=== PATIENT | female | born 1995 | race Caucasian/White ===

== ENCOUNTER 2023-04-05 13:56 | Outpatient (OUT) | payer OTHER, SELFPAY ==
--- NOTE | 2023-04-05 | US_ITS ---
[address] [address] Patient Name: NOE ERVIN MRN: [id number] date: 1995 Sex: F Assigned Patient Location: US Current Patient Location: US Accession/Order Number: [id number] Exam Date: 04/05/2023 13:57 Report Date: 04/05/2023 17:28 At the request of: SHON BUSTAMANTE Procedure: US OB transvaginal EXAMINATION: US OB transvaginal HISTORY: MISSED PERIOD COMPARISON: No relevant comparison available. FINDINGS: Transvaginal images Hodge intrauterine gestation Gestational sac: 3.12 cm, 8 weeks 0 days CRL: 2.0 cm, 8 weeks 4 days Yolk sac: 2.1 mm Heart rate: 1 70 bpm Cervix: 4.2 cm, closed Uterus is normal, anteverted, retroflexed The ovaries are normal. Right corpus luteal cyst Clinical age: 11 weeks 4 days Clinical ANGELA: 10/21/2023 Ultrasound age: 8 weeks 4 days Ultrasound ANGELA: 11/11/2023 US/US OB transvaginal IMPRESSION: Viable hodge intrauterine gestation measuring 8 weeks 4 days Electronically authenticated by: DILLON BAUGH Date: 04/05/2023 17:28
== END 2023-04-05 13:57 | disposition home or self-care (01) ==
LOC: US 13:56
PROVIDERS: Visit Provider Obstetrics & Gynecology
DX: Z34.91 Encounter for supervision of normal pregnancy, unspecified, first trimester (principal); Z3A.08 8 weeks gestation of pregnancy; N92.6 Irregular menstruation, unspecified
CPT/HCPCS: 76817

== ENCOUNTER 2023-04-19 16:44 | Outpatient (OUT) | payer OTHER, SELFPAY ==
[2023-04-19 17:11] LABS: Basophils Percent Auto 0.3 % (0.2-2.0); Eosinophils Absolute Auto 0.1 10^3/uL (0.0-0.7); Eosinophils Percent Auto 1.4 % (0.9-7.0); Hematocrit 34.8 % (36.0-48.0); Hemoglobin 11.7 g/dL (12.0-16.0); Immature Granulocytes Abs Auto 0.02 10^3/uL (0.00-0.03); Immature Granulocytes Pct Auto 0.3 % (0.0-0.5); Lymphocytes Absolute Auto 1.5 10^3/uL (1.2-3.8); Lymphocytes Percent Auto 21.1 % (20.5-60.0); Mean Corpuscular HGB Conc 33.6 g/dL (29.9-35.2); Mean Corpuscular Hemoglobin 29.3 pg (26.7-34.0); Mean Platelet Volume 10.4 fL (9.5-13.5); Monocytes Absolute Auto 0.4 10^3/uL (0.3-0.8); Neutrophils Absolute Auto 5.2 10^3/uL (1.4-6.5); Neutrophils Percent Auto 71.9 % (43.0-75.0); Platelet Count 235 10^3/uL (150-450); Red Cell Distribution Width 12.4 % (11.0-15.0); White Blood Count 7.2 10^3/uL (4.0-11.0)
[2023-04-19 17:19] LABS: BOX Test Sent Out Y
[2023-04-19 17:29] LABS: Estimated Average Glucose 94 mg/dL; Glycohemoglobin A1C 4.9 % (4.5-6.2)
[2023-04-21 04:07] LABS: HBsAg Screen Negative (Negative); HIV Ab/p24 Ag Screen Non Reactive (Non Reactive)
[2023-04-21 06:14] LABS: Rubella Antibodies, IgG 5.44 index (Immune >0.99)
[2023-04-21 10:08] LABS: Rapid Plasma Reagin, Quant Non Reactive (NonRea<1:1)
[2023-04-23 15:10] LABS: HCV Ab Reactive (Non Reactive)
== END 2023-04-19 16:45 | disposition home or self-care (01) ==
PROVIDERS: Visit Provider Obstetrics & Gynecology
DX: Z34.80 Encounter for supervision of other normal pregnancy, unspecified trimester (principal)
CPT/HCPCS: 36415; 83036; 84443; 85025; 86592; 86706; 86762; 86803; 86850; 86900; 86901; 87086; 87389

== ENCOUNTER 2023-06-20 19:24 | Outpatient (REF) | payer OTHER, SELFPAY ==
[2023-06-24 14:07] LABS: Age Gdln ACOG Testing Note (.); IGP, rfx Aptima HPV ASCU Note (.)
== END 2023-06-20 19:25 | disposition home or self-care (01) ==
LOC: LAB 19:24
PROVIDERS: Visit Provider Obstetrics & Gynecology
DX: Z01.419 Encounter for gynecological examination (general) (routine) without abnormal findings (principal)
CPT/HCPCS: G0145

== ENCOUNTER 2023-06-29 18:03 | Outpatient (OUT) | payer OTHER, SELFPAY ==
--- NOTE | 2023-06-29 | US_ITS ---
[address] [address] Patient Name: NOE ERVIN MRN: [facility]:[id number] date: 1995 Sex: F Assigned Patient Location: US Current Patient Location: Accession/Order Number: [id number] Exam Date: 06/29/2023 18:00 Report Date: 06/30/2023 08:54 At the request of: SHON BUSTAMANTE Procedure: US OB anatomy EXAMINATION: US OB anatomy, US OB cervical length HISTORY: ANATOMY SCAN Z 34.92 COMPARISON: No relevant comparison available. TECHNIQUE: Transabdominal sonographic examination was performed for obstetrical and evaluation. FINDINGS: Number: 1 Heart Rate: 130.4 bpm H.B. /min Amniotic Fluid Volume: Subjectively normal Placental Location: POSTERIOR with lower margin covering the internal os by 1.4 cm. Cervix Length: 5.6 cm, closed. ANATOMY: Normal Structures -cerebellum, choroid plexus, cisterna magna, lateral cerebral ventricles, orbits, midline falx, hard palate, four-chamber heart, RVOT, LVOT, stomach, kidneys, bladder, umbilical cord insertion into abdomen, three-vessel cord, cervical spine, thoracic spine, lumbar spine, sacral spine, right upper extremity, left upper extremity, right lower extremity, left lower extremity. SUBOPTIMALLY SEEN: None ABNORMALITIES: None BIOMETRY: BPD: 5.0 cm 21 weeks 1 days HC: 19.0 cm 21 weeks 2 days AC: 17.0 cm 22 weeks 0 days FL: 3.6 cm 21 weeks 2 days EFW:437.4 grams; 89% FL/AC: 21.1 FL/BPD: 71.7 HC/AC: 1.1 GESTATIONAL AGE: Age by EDC: 20 weeks 5 days ANGELA by EDC: 11/11/2023 Age by current US: 21 weeks 3 days ANGELA by current US: 11/06/2023 US/US OB anatomy IMPRESSION: 1. Single live intrauterine with growth detailed above. 2. Posterior placenta with complete previa. Follow-up recommended. Electronically authenticated by: CHRISTINE SÁNCHEZ Date: 06/30/2023 08:54
--- NOTE | 2023-06-29 | US_ITS ---
[address] [address] Patient Name: NOE ERVIN MRN: [facility]:[id number] date: 1995 Sex: F Assigned Patient Location: US Current Patient Location: Accession/Order Number: [id number] Exam Date: 06/29/2023 18:00 Report Date: 06/30/2023 08:54 At the request of: SHON BUSTAMANTE Procedure: US OB cervical length EXAMINATION: US OB anatomy, US OB cervical length HISTORY: ANATOMY SCAN Z 34.92 COMPARISON: No relevant comparison available. TECHNIQUE: Transabdominal sonographic examination was performed for obstetrical and evaluation. FINDINGS: Number: 1 Heart Rate: 130.4 bpm H.B. /min Amniotic Fluid Volume: Subjectively normal Placental Location: POSTERIOR with lower margin covering the internal os by 1.4 cm. Cervix Length: 5.6 cm, closed. ANATOMY: Normal Structures -cerebellum, choroid plexus, cisterna magna, lateral cerebral ventricles, orbits, midline falx, hard palate, four-chamber heart, RVOT, LVOT, stomach, kidneys, bladder, umbilical cord insertion into abdomen, three-vessel cord, cervical spine, thoracic spine, lumbar spine, sacral spine, right upper extremity, left upper extremity, right lower extremity, left lower extremity. SUBOPTIMALLY SEEN: None ABNORMALITIES: None BIOMETRY: BPD: 5.0 cm 21 weeks 1 days HC: 19.0 cm 21 weeks 2 days AC: 17.0 cm 22 weeks 0 days FL: 3.6 cm 21 weeks 2 days EFW:437.4 grams; 89% FL/AC: 21.1 FL/BPD: 71.7 HC/AC: 1.1 GESTATIONAL AGE: Age by EDC: 20 weeks 5 days ANGELA by EDC: 11/11/2023 Age by current US: 21 weeks 3 days ANGELA by current US: 11/06/2023 US/US OB cervical length IMPRESSION: 1. Single live intrauterine with growth detailed above. 2. Posterior placenta with complete previa. Follow-up recommended. Electronically authenticated by: CHRISTINE SÁNHCEZ Date: 06/30/2023 08:54
== END 2023-06-29 18:04 | disposition home or self-care (01) ==
LOC: US 18:04
PROVIDERS: Visit Provider Obstetrics & Gynecology
DX: Z34.92 Encounter for supervision of normal pregnancy, unspecified, second trimester (principal); Z3A.20 20 weeks gestation of pregnancy
CPT/HCPCS: 76805; 76817

== ENCOUNTER 2023-07-17 14:18 | Outpatient (OUT) | payer OTHER, SELFPAY ==
[2023-07-19 00:07] LABS: AFP Value 81.4 ng/mL (.); Gest. Age on Collection Date 23.3 weeks (.); Gestat. Age Based On Ultrasound (.); Insulin Dep Diabetes No (.); Maternal Age At EDD 29.8 yr (.); OSBR Risk 1 IN 10000 (.); Results Report (.)
== END 2023-07-17 14:19 | disposition home or self-care (01) ==
LOC: LAB 14:19
PROVIDERS: Visit Provider Obstetrics & Gynecology
DX: Z34.92 Encounter for supervision of normal pregnancy, unspecified, second trimester (principal); Z36.1 Encounter for antenatal screening for raised alphafetoprotein level
CPT/HCPCS: 36415; 82105

== ENCOUNTER 2023-08-10 10:02 | Outpatient (OUT) | payer OTHER, SELFPAY ==
[2023-08-10 11:13] LABS: Basophils Percent Auto 0.2 % (0.2-2.0); Eosinophils Absolute Auto 0.1 10^3/uL (0.0-0.7); Eosinophils Percent Auto 1.2 % (0.9-7.0); Hematocrit 31.4 % (36.0-48.0); Immature Granulocytes Abs Auto 0.08 10^3/uL (0.00-0.03); Immature Granulocytes Pct Auto 0.9 % (0.0-0.5); Lymphocytes Absolute Auto 1.3 10^3/uL (1.2-3.8); Lymphocytes Percent Auto 15.5 % (20.5-60.0); Mean Corpuscular HGB Conc 31.8 g/dL (29.9-35.2); Mean Corpuscular Hemoglobin 28.1 pg (26.7-34.0); Mean Corpuscular Volume 88.2 fL (81.0-99.0); Mean Platelet Volume 10.8 fL (9.5-13.5); Monocytes Absolute Auto 0.6 10^3/uL (0.3-0.8); Monocytes Percent Auto 6.9 % (1.7-12.0); Neutrophils Absolute Auto 6.4 10^3/uL (1.4-6.5); Neutrophils Percent Auto 75.3 % (43.0-75.0); Platelet Count 216 10^3/uL (150-450); Red Blood Count 3.56 10^6/uL (4.20-5.40); Red Cell Distribution Width 11.9 % (11.0-15.0); White Blood Count 8.5 10^3/uL (4.0-11.0)
[2023-08-10 11:37] LABS: Glucose 1 Hour 116 mg/dL
== END 2023-08-10 10:03 | disposition home or self-care (01) ==
PROVIDERS: Visit Provider Physician Assistant
DX: Z34.92 Encounter for supervision of normal pregnancy, unspecified, second trimester (principal)
CPT/HCPCS: 82950; 85025

== ENCOUNTER 2023-08-26 11:35 | Emergency (ER) | payer OTHER, SELFPAY ==
[2023-08-26 11:46] VITALS: BP 139/84; PULSE 103; RESP 20; TEMP 36.8; O2SAT 99; BMI 28.7
--- NOTE | 2023-08-26 12:00 | ED.URI1 ---
HPI - URI/Sore Throat General Chief Complaint: Upper Respiratory Infection Stated Complaint: COUGH/FEVER/NAUSEA Time Seen by Provider: 08/26/23 11:39 Source: patient Limitations: no limitations History of Present Illness HPI Narrative: 28-year-old female presents for congestion. She tested positive for Covid last night. No fever or vomiting or diarrhea. Her tested positive as well yesterday and her daughter is being seen as well today. Related Data Home Medications Medication Instructions Recorded Confirmed gabapentin 600 mg tablet 600 mg PO Q8H 08/26/23 08/26/23 ondansetron HCl 4 mg tablet 8 mg PO Q6H PRN nausea and vomiting 08/26/23 08/26/23 vitamin with calcium 1 tab PO Q24H 08/26/23 08/26/23 no.72-iron 27 mg-folic acid 1 mg tablet ( Vitamins Plus Low Iron) Allergies Allergy/AdvReac Type Severity Reaction Status Date / Time No Known Drug Allergies Allergy Verified 08/26/23 11:51 Review of Systems ROS Narrative A ten point review of systems is negative except as noted above. Exam Narrative Exam Narrative: Nurses note and vital signs reviewed and patient is not hypoxic. General: The patient appears well and in no apparent distress. Patient is resting comfortably on cart. Skin: Warm, dry, no pallor noted. There is no rash noted. Head: Normocephalic, atraumatic Eye: Normal conjunctiva, no drainage Ears, Nose, Mouth, and Throat: oral mucosa is moist. Nares patent. Cardiovascular: Regular Rate and Rhythm, not tachycardic Respiratory: Patient is in no distress, no accessory muscle use, lungs are clear to auscultation, no wheezing, rales or rhonchi Back: non-tender GI: nontender Musculoskeletal: no joint swelling Neurological: A&O, normal speech Psychiatric: Cooperative Constitutional Vital Signs, click to edit/add: Last Vital Signs Temp 98.2 F 08/26/23 11:46 Pulse 103 H 08/26/23 11:46 Resp 20 08/26/23 11:46 BP 139/84 08/26/23 11:46 Pulse Ox 99 08/26/23 11:46 O2 Del Method Room Air 08/26/23 11:46 Course Vital Signs Vital signs: Vital Signs Temperature 98.2 F 08/26/23 11:46 Pulse Rate 103 H 08/26/23 11:46 Respiratory Rate 20 08/26/23 11:46 Blood Pressure 139/84 08/26/23 11:46 Pulse Oximetry 99 08/26/23 11:46 Oxygen Delivery Method Room Air 08/26/23 11:46 Temperature 98.2 F 08/26/23 11:46 Pulse Rate 103 H 08/26/23 11:46 Respiratory Rate 20 08/26/23 11:46 Blood Pressure 139/84 08/26/23 11:46 Pulse Oximetry 99 08/26/23 11:46 Oxygen Delivery Method Room Air 08/26/23 11:46 MDM - URI/Sore Throat MDM Narrative Medical decision making narrative: the patient has Covid. She was educated and reassured. She was given a work note. Treatment diagnosis and follow-up were discussed with the patient. Differential Diagnosis Differential diagnosis: Likely upper respiratory infection and other (Covid) Discharge Plan Discharge Chief Complaint: Upper Respiratory Infection Clinical Impression: COVID-19 Patient Disposition: Home, Self-Care Time of Disposition Decision: 11:59 Condition: Good Mode of Transportation: Private Vehicle Prescriptions / Home Meds: No Action gabapentin 600 mg tablet 600 mg PO Q8H ondansetron HCl 4 mg tablet 8 mg PO Q6H PRN (Reason: nausea and vomiting) Vitamin Plus Low Iron 27 mg iron- 1 mg tablet 1 tab PO Q24H Instructions: COVID-19 (Coronavirus Disease 2019) (ED), COVID-19: Slow the Coronavirus Spread (ED), Face Coverings (Masks) and COVID-19 (ED), How to Recover from COVID-19 at Home (ED), Social Distancing Guidelines for COVID-19 (ED) Stand Alone Forms: Portal Instructions Referrals: [facility] [Primary Care Provider] - 1 week
[2023-08-26 12:11] VITALS: O2SAT 99
== END 2023-08-26 12:44 | disposition home or self-care (01) ==
PROVIDERS: Emergency Provider Emergency Medicine
DX: U07.1 COVID-19 (principal); Z79.899 Other long term (current) drug therapy
CPT/HCPCS: 99281

== ENCOUNTER 2023-09-05 15:14 | Outpatient (OUT) | payer OTHER, SELFPAY ==
--- NOTE | 2023-09-05 15:18 | US_ITS ---
[address] [address] Patient Name: NOE ERVIN MRN: [facility]:[id number] date: 1995 Sex: F Assigned Patient Location: US Current Patient Location: US Accession/Order Number: [id number] Exam Date: 09/05/2023 15:18 Report Date: 09/05/2023 15:57 At the request of: SHON BUSTAMANTE Procedure: US OB growth EXAMINATION: US OB growth HISTORY: SIZE INCONSISTENT WITH DATES COMPARISON: No relevant comparison available. FINDINGS: Heart Rate: 149.0 bpm Amniotic Fluid Volume: 9.3 cm Number: 1.0 Position: CEPHALIC Maximum Vertical Pocket: 3.4 cm cm 0.0 cm cm 3.5 cm cm 2.4 cm cm BIOMETRY: BPD: 8.0 cm cm; 32 weeks 0 days; 84% HC: 28.1 cmcm; 30 weeks 5 days , 23% AC: 27.1 cm cm; 31 weeks 2 days, 70% FL: 6.0 cm cm; 31 weeks 1 days; 55.9 % % EFW: 1721.6 grams, 3lb 13 oz, 65% FL/AC: 22.0 FL/BPD: 75.0 HC/AC: 1.0 GESTATIONAL AGE: Age by EDC: 30 weeks 3 days ANGELA by EDC: 11/11/2023 Age by US: 31 weeks, 2 days ANGELA by US: 11/05/2023 US/US OB growth IMPRESSION: Normal interval growth Electronically authenticated by: DILLON BAUGH Date: 09/05/2023 15:57
--- OUTSIDE RECORDS SUMMARY | 2023-09-06 09:54 | XMS_ITS | CCD ---
Author Name Unknown Address [address] [place] [address] Organization [facility] Care Team Providers Care Hammer Adjuster Name Role Phone ANGELO SPICER Unavailable Unavailable LIGIA SPICEREEP Unavailable Unavailable ROCHELLE WILLAMS Unavailable Unavailable Rochelle Willams Primary Care Provider Lima Cornell Attending Unavailab le Rochelle Willams Primary Care Provider [phone] KADI DIXON Referring Unavailable ROCHELLE WILLAMS Primary Care Unavailable POOL, GEORGETTE E Referring Unavailable ROCHELLE WILLAMS Primary Care Unavailable POOL, GEORGETTE E Referring Unavailable ROCHELLE WILLAMS Primary Care Unavailable ANTHONY PABON Referring Unavailable ROCHELLE WILLAMS Primary Care Unavailable Unavailable Primary Care Provider UnavailRodo Carson Primary Care Provider [facility] Primary Care Unavaila ble ROBBY ., DR MENENDEZ Attending Unavailable ROBBY ., DR MENENDEZ Admitting Unavailable MEAGHAN, DR ELISEO Malone Consulting Unavailluis e MEAGHAN, DR ELISEO Malone Attending Unavailabl rickie HARDING, DR ELISEO Malone Admitting UnavailKADI Darnell Primary Care Unavailable FELIX WEBB Consulting Unavailable GONZALO, DR CHRISTINE Benites Consulting Unavailable MYLES CAMARILLO Attending Unavailable MYLES CAMARILLO Admitting Unavailable [facility], [facility] Primary Care Unavaila MYLES Serna Consulting Unavailable IVAN KONG Consulting Unavailable IVAN KONG Attending Unavailable IVAN KONG Admitting Unavailable [facility] Primary Care Unavaila ble ROBBY ., DR MENENDEZ Consulting Unavailable [facility] Primary Care Unavaila ble ROBBY ., DR MENENDEZ Attending Unavailable ROBBY ., DR MENENDEZ Admitting Unavailable NADERER, DR RODO Dickerson Consulting Unavailable NADERER, DR RODO Dickerson Attending Unavailable NADERER, DR RODO Dickerson Admitting Unavailable [facility] Primary Care Unavaila ble GRECHNY ., ADELITA ORELLANA Consulting Unavailluis CAMARILLO, MYLES Alex Consulting Unavailable GAYE, GURU Consulting Unavailable ROBERTA, ALIX Consulting Unavailable LINA, KAMILLA Consulting Unavailable SISTER, DANIELA Consulting Unavailable ROBBY ., DR MENENDEZ Consulting Unavailable [facility] Primary Care Unavaila ble ROBBY ., DR MENENDEZ Attending Unavailable ROBBY ., DR MENENDEZ Admitting Unavailable ELENITA, NGOC Consulting Unavailable GEMBUS, AUGUSTUS Consulting Unavailable [facility] Primary Care Unavaila ble ROBBY ., DR MENENDEZ Consulting Unavailable ROBBY ., DR MENENDEZ Attending Unavailable ROBBY ., DR MENENDEZ Admitting Unavailable ZIEBER, DR CHRISTINE Benites Consulting Unavailable ROBBY ., DR MENENDEZ Consulting Unavailable [facility] Primary Care Unavaila ble ROBBY ., DR MENENDEZ Attending Unavailable ROBBY ., DR MENENDEZ Admitting Unavailable ROBBY ., DR MENENDEZ Consulting Unavailable DESTINY, KADI R Primary Care Unavailable ROBBY ., DR MENENDEZ Attending Unavailable ROBBY ., DR MENENDEZ Admitting Unavailable ZIEBER, DR CHRISTINE Benites Consulting Unavailable LUIS FELIPE HALL Attending Unavailable ROBBY, YOUSIF Attending Unavailable Allergies Allergy Classification Reported Allergen(s) Allergy Type Date of Onset Reaction(s) Facility (1 source) No Known Medication Allergies; Translations: [No Known Medication Allergies] Propensity to adverse reactions to drug (disorder) [facility] Medications Current Medications Medication Drug Class(es) Dates Sig (Normalized) Sig (Original) aspirin 81 mg delayed release oral tablet (4 sources) Platelet Aggregation Inhibitor, Nonsteroidal Anti-inflammatory Drug Start: 11-20-2019 take 1 tablet by mouth once daily aspirin EC 81 MG EC tablet Take 1 tablet by mouth daily 90 tablet 1 11/20/2019 Active take 1 capsule by mouth once mike ly aspirin 81 mg cap Take 81 mg by mouth once daily. 0 Active Comment on above: Take 81 mg by mouth once daily. hydrOXYzine pamoate 50 mg oral capsule (2 sources) Antihistamine Start: 06-17-20 19 take 1 capsule by mouth three times daily hydrOXYzine (VISTARIL) 50 MG capsule TAKE ONE CAPSULE BY MOUTH 3 TIMES A DAY 1 06/17/2019 Active levETIRAcetam 1000 mg oral tablet (1 source) Start: 11-06-19 18 take 1 tablet by mouth twice daily levETIRAcetam (KEPPRA) 1000 MG tablet Take 1 tablet by mouth 2 times daily 60 tablet 0 11/06/2017 Active linaclotide 0.072 mg oral capsule (2 sources) Guanylate Cyclase-C Agonist Start: 09-22-19 20 take 1 capsule by mouth once daily LINZESS 72 MCG CAPS capsule TAKE 1 CAPSULE BY MOUTH EVERY DAY 0 09/22/2019 Active propranolol hydrochloride 10 mg oral tablet (3 sources) beta-Adrenergic Jared Start: 05-21-20 19 take 1 tablet by mouth twice daily propranolol (INDERAL) 10 MG tablet TAKE 1 TABLET BY MOUTH TWICE A DAY 1 05/21/2019 Active QUEtiapine 25 mg oral tablet (3 sources) Atypical Antipsychotic Start: 04-30-20 19 take 1 tablet by mouth in the morning QUEtiapine (SEROQUEL) 25 MG tablet TAKE 1 TABLET BY MOUTH IN THE MORNING 1 04/30/2019 Active sertraline 25 mg oral tablet (2 sources) Serotonin Reuptake Inhibitor Start: 11-20-19 20 take 1 tablet by mouth once daily sertraline (ZOLOFT) 25 MG tablet Take 1 tablet by mouth daily 90 tablet 3 11/20/2019 Active 24 hr divalproex sodium 500 mg extended release oral tablet (3 sources) Mood Stabilizer, Anti-epileptic Agent Start: 05-06-20 19 take 1 tablet by mouth once daily divalproex (DEPAKOTE ER) 500 MG extended release tablet TAKE 1 TABLET BY MOUTH EVERY DAY 1 05/06/2019 Active 24 hr venlafaxine 150 mg extended release oral capsule (1 source) Serotonin and Norepinephrine Reuptake Inhibitor Start: 11-06-19 18 take 1 capsule by mouth once daily venlafaxine (EFFEXOR XR) 150 MG extended release capsule Take 1 capsule by mouth daily 30 capsule 0 11/06/2017 Active Completed/Discontinued Medications Medication Drug Class(es) Dates Sig (Normalized) Sig (Original) gabapentin 400 mg oral capsule (2 sources) Anti-epileptic Agent Start: 08-08-2021 gabapentin (NEURONTIN) 400 mg capsule Take by mouth. 0 08/08/2021 Active Comment on above: Take by mouth. ondansetron 4 mg oral tablet (2 sources) Serotonin-3 Receptor Antagonist ONDANSETRON HCL ORAL Take 4 mg by mouth as needed. 0 Active Comment on above: Take 4 mg by mouth a s needed. polysaccharide iron complex 391 mg oral capsule (2 sources) Start: 06-01-2021 Polysaccharide Iron Complex 180 mg iron cap Take by mouth. 0 06/01/2021 Active Comment on above: Take by mouth. Problems Active Problems Problem Classification Problem Date Documented Da te Episodic/Chronic Abdominal pain (3 sources) Left lower quadrant pain; Translations: [LEFT LOWER QUADRANT PAIN] Onset: 10-11-2022 Episodic Acute and unspecified renal failure (1 source) Acute kidney failure, unspecified; Translations: [ACUTE KIDNEY FAILURE UNSPECIFIED] Onset: 12-04-2022 Episodic Anxiety disorders (6 sources) Acute stress disorder; Translations: [Posttraumatic stress disorder] Onset: 02-20-2017 06-19-2019 Chronic Chronic obstructive pulmonary disease and bronchiectasis (1 source) Mucopurulent chronic bronchitis; Translations: [MUCOPURULENT CHRONIC BRONCHITIS] Onset: 07-10-2022 Chronic Deficiency and other anemia (1 source) Iron deficiency anemia; Translations: [Iron deficiency anemia, unspecified] Episodic E Codes: Natural/environment (1 source) Exposure to other specified factors, initial encounter; Translations: [EXPOSURE OTHER SPEC FACTORS INITIAL] Onset: 12-04-2022 Episodic Menstrual disorders (6 sources) Amenorrhea; Translations: [Irregular menstruation, unspecified] Onset: 07-27-2022 Chronic Mood disorders (14 sources) Depressive disorder; Translations: [Recurrent major depression in partial remission] Onset: 02-20-2017 11-05-2017 Chronic Mood disorders (2 sources) Major depressive disorder, single episode, unspecified; Translations: [Major depressive disorder, single episode, unspecified] Onset: 11-05-2017 Other aftercare (1 source) Other bed bug exterminator (current) drug therapy; Translations: [OTH MCFP CURRENT DRUG THERAPY] Onset: 12-25-2022 Episodic Other complications of (2 sources) Spotting per vagina in ; Translations: [Spotting in early ] Episodic Other connective tissue disease (1 source) Fibromyalgia; Translations: [FIBROMYALGIA] Onset: 12-25-2022 Episodic Other nervous system disorders (1 source) Metabolic encephalopathy; Translations: [METABOLIC ENCEPHALOPATHY] Onset: 12-04-2022 Chronic Other upper respiratory infections (1 source) Acute upper respiratory infection, unspecified; Translations: [ACUTE UP RESPIRATORY INFECTION UNS] Onset: 12-25-2022 Episodic Ovarian cyst (1 source) Other ovarian cyst, unspecified side; Translations: [OTHER OVARIAN CYST UNSPECIFIED SIDE] Onset: 10-13-2022 Episodic Residual codes; unclassified (1 source) H/O: miscarriage; Translations: [History of miscarriage, currently ] Episodic Residual codes; unclassified (3 sources) Altered mental status, unspecified; Translations: [ALTERED MENTAL STATUS UNSPECIFIED] Onset: 11-29-2022 Episodic Screening and history of mental health and substance abuse codes (1 source) Personal history of nicotine dependence; Translations: [PERSONAL HISTORY OF NICOTINE DEPEND] Onset: 10-13-2022 Episodic Substance-related disorders (9 sources) Nicotine dependence; Translations: [Psychoactive substance use disorder] Onset: 11-11-2017 06-19-2019 Chronic Superficial injury; contusion (1 source) Contusion of other part of head, initial encounter; Translations: [CONTUS OTH PRT HEAD INITIAL ENCNTR] Onset: 12-04-2022 Episodic Unclassified (2 sources) COUGH, UNSPECIFIED; Translations: [COUGH, UNSPECIFIED] Onset: 12-25-2022 Unclassified (1 source) CONTACT W/AND (SUSP) EXPOS COVID-19; Translations: [CONTACT W/AND (SUSP) EXPOS COVID-19] Onset: 12-04-2022 Unclassified (1 source) ACIDOSIS UNSPECIFIED; Translations: [ACIDOSIS UNSPECIFIED] Onset: 12-04-2022 Urinary tract infections (5 sources) Urinary tract infectious disease; Translations: [Urinary tract infection, site not specified] Onset: 01-02-2019 06-19-2019 Episodic Past or Other Problems Problem Classification Problem Date Documented Date Episodic/Chronic Epilepsy; convulsions (3 sources) Seizure; Translations: [Seizures] Onset: 11-11-2017 06-19-2019 Episodic Inflammatory diseases of female pelvic organs (3 sources) Acute vaginitis; Translations: [Acute vaginitis] Onset: 01-02-2019 06-19-2019 Episodic Other complications of (5 sources) Missed ; Translations: [MISSED ] Onset: 08-18-2022 Episodic Other complications of (1 source) Other placental disorders, first trimester; Translations: [OTH PLACENTAL DISORDER FIRST TRI] Onset: 08-19-2022 Episodic Other female genital disorders (3 sources) Noninflammatory disorder of the vagina; Translations: [Other specified noninflammatory disorders of vagina] Onset: 12-31-2018 06-19-2019 Episodic Other and delivery including normal (7 sources) Urine test positive; Translations: [Normal ] Onset: 08-14-2022 Episodic Residual codes; unclassified (4 sources) Other specified postprocedural states; Translations: [OTH SPECIFIED POSTPROCEDURAL STATES] Onset: 09-12-2022 Episodic Residual codes; unclassified (1 source) 8 weeks gestation of ; Translations: [8 WEEKS GESTATION OF ] Onset: 08-19-2022 Episodic Unclassified (1 source) COUGH, UNSPECIFIED; Translations: [COUGH, UNSPECIFIED] Onset: 12-21-2022 NEGATED: Highlighted row has been ruled out!Unclassified (1 source) No known active problems 12-12-2021 Results Test Name Value Interpretation Reference Range Facil ity CULTURE URINEon 12-01-2022 CULTURE URINE Isolate 1 Escherichia coli >100,000 cfu/mL of ORGANISM 1 Escherichia coli ANTIBIOTIC M.I.C RX STATUS Ampicillin >=32 R F Ampicillin/Sulbactam 16 I F Piperacillin/Tazobact am <=4 S F Cefazolin <=4 S F Ceftazidime <=1 S F Ceftriaxone <=1 S F Ertapenem <=0.5 S F Imipenem <=0.25 S F Amikacin <=2 S F Gentamicin <=1 S F Tobramycin <=1 S F Ciprofloxacin <=0.25 S F Levofloxacin <=0.12 S F Nitrofurantoin <=16 S F Trimethoprim/Sulfamet hoxazole >=320 R F Normal [facility] Comment on above: Performed By: #### C BC #### [facility] [address] [place] [address] Dr. Hemanth Kerr CBC AUTO DIFFon 11-29-2022 BASO # 0.0 103/ul Normal 0.0-0.[address] [facility] Comment on above: Performed By: #### C BC #### [facility] [address] [address] [address] Hemanth Kerr Basophils/100 WBC (Bld) 0.7 % Normal 0.2-2.[address] [facility] Comment on above: Performed By: #### C BC #### [facility] [address] [address] [address] Hemanth Kerr EO # 0.2 103/ul Normal 0.0-0.[address] [facility] Comment on above: Performed By: #### C BC #### [facility] [address] [address] [address] Hemanth Kerr Eosinophils/100 WBC (Bld) 3.3 % Normal 0.9-7.[address] [facility] Comment on above: Performed By: #### C BC #### [facility] [address] [place] [address] Dr. Hemanth Kerr Erythrocyte distribution width (RBC) [Ratio] 14.3 % Normal 11.0-15.[address] [facility] Comment on above: Performed By: #### C BC #### [facility] [address] [place] [address] Dr. Hemanth Kerr Hematocrit (Bld) [Volume fraction] 37.2 % Normal 36.0-48.[address] [facility] Comment on above: Performed By: #### C BC #### [facility] [address] [place] [address] Dr. Hemanth Kerr Hemoglobin (Bld) [Mass/Vol] 11.9 g/dL Critically low 12.0-16.[address] [facility] Comment on above: Performed By: #### C BC #### [facility] [address] [place] [address] Dr. Hemanth Kerr IG # 0.01 10e3/ul Normal 0.00-0.[address] [facility] Comment on above: Performed By: #### C BC #### [facility] [address] [place] [address] Dr. Hemanth Kerr IG % 0.2 % Normal 0.0-0.[address] [facility] Comment on above: Performed By: #### C BC #### [facility] [address] [place] [address] Dr. Hemanth Kerr LYMPH # 1.7 103/ul Normal 1.2-3.[address] [facility] Comment on above: Performed By: #### C BC #### [facility] [address] [place] [address] Dr. Hemanth Kerr Lymphocytes/100 WBC (Bld) 31.3 % Normal 20.5-60.[address] [facility] Comment on above: Performed By: #### C BC #### [facility] [address] [place] [address] Dr. Hemanth Kerr MANUAL DIFF REQ NO Normal [facility] Comment on above: Performed By: #### C BC #### [facility] [address] [place] [address] Dr. Hemanth Kerr MCH (RBC) [Entitic mass] 27.8 pg Normal 26.7-34.[address] [facility] Comment on above: Performed By: #### C BC #### [facility] [address] [place] [address] Dr. Hemanth Kerr MCHC (RBC) [Mass/Vol] 32.0 g/dL Normal 29.9-35.[address] [facility] Comment on above: Performed By: #### C BC #### [facility] [address] [place] [address] Dr. Hemanth Kerr MCV (RBC) [Entitic vol] 86.9 fL Normal 81.0-99.[address] [facility] Comment on above: Performed By: #### C BC #### [facility] [address] [place] [address] Dr. Hemanth Kerr MONO # 0.4 103/ul Normal 0.3-0.[address] [facility] Comment on above: Performed By: #### C BC #### [facility] [address] [place] [address] Dr. Hemanth Kerr Monocytes/100 WBC (Bld) 8.0 % Normal 1.7-12.[address] [facility] Comment on above: Performed By: #### C BC #### [facility] [address] [place] [address] Dr. Hemanth Kerr NEUT # 3.1 103/ul Normal 1.4-6.[address] [facility] Comment on above: Performed By: #### C BC #### [facility] [address] [place] [address] Dr. Hemanth Kerr Neutrophils/100 WBC (Bld) 56.5 % Normal 43.0-75.[address] [facility] Comment on above: Performed By: #### C BC #### [facility] [address] [place] [address] Dr. Hemanth Kerr Platelet mean volume (Bld) [Entitic vol] 10.3 fL Normal 9.5-13.[address] [facility] Comment on above: Performed By: #### C BC #### [facility] [address] [place] [address] Dr. Hemanth Kerr PLT 258 103/ul Normal 150-[address] [facility] Comment on above: Performed By: #### C BC #### [facility] [address] [place] [address] Dr. Hemanth Kerr RBC 4.28 106/ul Normal 4.20-5.[address] [facility] Comment on above: Performed By: #### C BC #### [facility] [address] [place] [address] Dr. Hemanth Kerr WBC 5.4 103/ul Normal 4.0-11.[address] [facility] Comment on above: Performed By: #### C BC #### [facility] [address] [place] [address] Dr. Hemanth Kerr PROF 14(COMP METB)on 023 Albumin [Mass/Vol] 3.1 g/dL Critically low 3.4-5.0 [facility] Comment on above: Performed By: #### C MP #### [facility] [address] [place] [address] Dr. Hemanth Kerr Albumin/Globulin [Mass ratio] 1.3 {ratio} Normal [facility] Comment on above: Performed By: #### C MP #### [facility] [address] [address] [address] Hemanth Kerr ALP [Catalytic activity/Vol] 56 U/L Normal 46-[address] [facility] Comment on above: Performed By: #### C MP #### [facility] [address] [place] [address] Dr. Hemanth Kerr ALT [Catalytic activity/Vol] 34 U/L Normal 14-[address] [facility] Comment on above: Performed By: #### C MP #### [facility] [address] [place] [address] Dr. Hemanth Kerr Anion gap [Moles/Vol] 7.0 mmol/L Normal [facility] Comment on above: Performed By: #### C MP #### [facility] [address] [place] [address] Dr. Hemanth Kerr AST [Catalytic activity/Vol] 29 U/L Normal 15-[address] [facility] Comment on above: Performed By: #### C MP #### [facility] [address] [place] [address] Dr. Hemanth Kerr Bilirubin [Mass/Vol] 0.4 mg/dL Normal 0.2-1.[address] [facility] Comment on above: Performed By: #### C MP #### [facility] [address] [place] [address] Dr. Hemanth Kerr Calcium [Mass/Vol] 8.3 mg/dL Critically low 8.5-10.1 [facility] Comment on above: Performed By: #### C MP #### [facility] [address] [place] [address] Dr. Hemanth Kerr Chloride [Moles/Vol] 110 mmol/L Critically high 98-[address] [facility] Comment on above: Performed By: #### C MP #### [facility] [address] [place] [address] Dr. Hemanth Kerr CO2 [Moles/Vol] 27.6 mmol/L Normal 21.0-32.0 [facility] Comment on above: Performed By: #### C MP #### [facility] [address] [place] [address] Dr. Hemanth Kerr Creatinine [Mass/Vol] 0.61 mg/dL Normal 0.55-1.[address] [facility] Comment on above: Performed By: #### C MP #### [facility] [address] [address] [address] Hemanth Kerr EGFR-AF MALTESE >60 Normal >=60 [facility] Comment on above: Performed By: #### C MP #### [facility] [address] [address] [address] Hemanth Kerr EGFR-NON AF MALTESE >60 Normal >=[address] [facility] Comment on above: Performed By: #### C MP #### [facility] [address] [address] [address] Hemanth Kerr Globulin (S) [Mass/Vol] 2.4 g/dL Normal [facility] Comment on above: Performed By: #### C MP #### [facility] [address] [address] [address] Hemanth Kerr Glucose [Mass/Vol] 110 mg/dL Critically high 74-106 [facility] Comment on above: Performed By: #### C MP #### [facility] [address] [address] [address] Hemanth Kerr Potassium [Moles/Vol] 2.6 mmol/L Critically low 3.5-5.[address] [facility] Comment on above: Performed By: #### C MP #### [facility] [address] [address] [address] Hemanth Kerr Protein [Mass/Vol] 5.5 g/dL Critically low 6.4-8.2 [facility] Comment on above: Performed By: #### C MP #### [facility] [address] [address] [address] Hemanth Kerr Sodium [Moles/Vol] 142 mmol/L Normal 136-145 [facility] Comment on above: Performed By: #### C MP #### [facility] [address] [address] [address] Hemanth Kerr Urea nitrogen [Mass/Vol] 12.0 mg/dL Normal 7.0-18.[address] [facility] Comment on above: Performed By: #### C MP #### [facility] [address] [address] [address] Hemanth Kerr Urea nitrogen/Creatinine [Mass ratio] 19.7 mg/mg Normal [facility] Comment on above: Performed By: #### C MP #### [facility] [address] [address] [address] Hemanth Kerr XR HIP LT 2 3V W PELVISon XR HIP LT 2 3V W PELVIS EXAM: XR HIP LT 2 3V W PELVIS HISTORY: Pain COMPARISON: None. TECHNIQUE: 3 views of the left hip FINDINGS: No acute fracture seen. Joint alignment is normal. Joint spaces are preserved. Soft tissues appear unremarkable. IMPRESSION: No obvious radiographic evidence for acute displaced fracture or malalignment. Electronically authenticated by: ALIX GRANADOS Date: 2022-11-28 22:[address] [facility] ACETAMINOPHENon 11-28-2022 Acetaminophen [Mass/Vol] ug/mL Critically low 10.0-30.[address] [facility] Comment on above: Performed By: #### C MP #### [facility] [address] [place] [address] Dr. Hemanth Kerr ACETONE SERUMon 11-28-2022 ACETONE Negative Normal NEGATIVE [facility] Comment on above: Performed By: #### P REG #### [facility] [address] [address] [address] Hemanth Kerr AMMONIAon 11-28-2022 Ammonia (P) [Moles/Vol] 24 umol/L Normal 11-[address] [facility] Comment on above: Performed By: #### L ACT #### [facility] [address] [address] [address] Hemanth Kerr CBC AUTO DIFFon 11-28-2022 BASO # 0.0 103/ul Normal 0.0-0.[address] [facility] Comment on above: Performed By: #### L ACT #### [facility] [address] [address] [address] Hemanth Kerr Basophils/100 WBC (Bld) 0.4 % Normal 0.2-2.[address] [facility] Comment on above: Performed By: #### L ACT #### [facility] [address] [address] [address] Hemanth Kerr EO # 0.3 103/ul Normal 0.0-0.[address] [facility] Comment on above: Performed By: #### L ACT #### [facility] [address] [place] [address] Dr. Hemanth Kerr Eosinophils/100 WBC (Bld) 3.1 % Normal 0.9-7.[address] [facility] Comment on above: Performed By: #### L ACT #### [facility] [address] [place] [address] Dr. Hemanth Kerr Erythrocyte distribution width (RBC) [Ratio] 14.3 % Normal 11.0-15.[address] [facility] Comment on above: Performed By: #### L ACT #### [facility] [address] [place] [address] Dr. Hemanth Kerr Hematocrit (Bld) [Volume fraction] 41.3 % Normal 36.0-48.[address] [facility] Comment on above: Performed By: #### L ACT #### [facility] [address] [place] [address] Dr. Hemanth Kerr Hemoglobin (Bld) [Mass/Vol] 13.3 g/dL Normal 12.0-16.[address] [facility] Comment on above: Performed By: #### L ACT #### [facility] [facility] [address] [place] [address] Dr. Hemanth Kerr IG # 0.02 10e3/ul Normal 0.00-0.[address] [facility] Comment on above: Performed By: #### L ACT #### [facility] [address] [place] [address] Dr. Hemanth Kerr IG % 0.2 % Normal 0.0-0.[address] [facility] Comment on above: Performed By: #### L ACT #### [facility] [address] [place] [address] Dr. Hemanth Kerr LYMPH # 2.4 103/ul Normal 1.2-3.[address] [facility] Comment on above: Performed By: #### L ACT #### [facility] [address] [place] [address] Dr. Hemanth Kerr Lymphocytes/100 WBC (Bld) 26.3 % Normal 20.5-60.[address] [facility] Comment on above: Performed By: #### L ACT #### [facility] [address] [place] [address] Dr. Hemanth Kerr MANUAL DIFF REQ NO Normal [facility] Comment on above: Performed By: #### L ACT #### [facility] [address] [place] [address] Dr. Hemanth Kerr MCH (RBC) [Entitic mass] 27.4 pg Normal 26.7-34.[address] [facility] Comment on above: Performed By: #### L ACT #### [facility] [address] [place] [address] Dr. Hemanth Kerr MCHC (RBC) [Mass/Vol] 32.2 g/dL Normal 29.9-35.[address] [facility] Comment on above: Performed By: #### L ACT #### [facility] [address] [place] [address] Dr. Hemanth Kerr MCV (RBC) [Entitic vol] 85.0 fL Normal 81.0-99.[address] [facility] Comment on above: Performed By: #### L ACT #### [facility] [address] [place] [address] Dr. Hemanth Kerr MONO # 0.7 103/ul Normal 0.3-0.[address] [facility] Comment on above: Performed By: #### L ACT #### [facility] [address] [place] [address] Dr. Hemanth Kerr Monocytes/100 WBC (Bld) 7.3 % Normal 1.7-12.[address] [facility] Comment on above: Performed By: #### L ACT #### [facility] [address] [place] [address] Dr. Hemanth Kerr NEUT # 5.7 103/ul Normal 1.4-6.[address] [facility] Comment on above: Performed By: #### L ACT #### [facility] [address] [address] [address] Hemanth Kerr Neutrophils/100 WBC (Bld) 62.7 % Normal 43.0-75.[address] [facility] Comment on above: Performed By: #### L ACT #### [facility] [address] [address] [address] Hemanth Kerr Platelet mean volume (Bld) [Entitic vol] 10.6 fL Normal 9.5-13.[address] [facility] Comment on above: Performed By: #### L ACT #### [facility] [address] [address] [address] Hemanth Kerr PLT 347 103/ul Normal 150-[address] [facility] Comment on above: Performed By: #### L ACT #### [facility] [address] [place] [address] Dr. Hemanth Kerr RBC 4.86 106/ul Normal 4.20-5.[address] [facility] Comment on above: Performed By: #### L ACT #### [facility] [address] [place] [address] Dr. Hemanth Kerr WBC 9.1 103/ul Normal 4.0-11.[address] [facility] Comment on above: Performed By: #### L ACT #### [facility] [address] [place] [address] CSPINE WO CONon CT CSPINE WO CON EXAMINATION: CT CSPINE WO CON HISTORY: DISORIENTATION, UNSPECIFIED COMPARISON: None. TECHNIQUE: CT Cervical spine without IV contrast. Coronal and sagittal reformations were performed. Dose reduction techniques were achieved by using automated exposure control and/or adjustment of mA and/or kV according to patient size and/or use of iterative reconstruction technique. FINDINGS: There is preservation of the normal cervical lordosis. There is no acute fracture or subluxation. The neural foramen appear patent. Unremarkable precervical soft tissues. The visualized lung apices are clear. IMPRESSION: No acute bony abnormality. Electronically authenticated by: KAMILLA MILLS Date: 2022-11-28 17:[address] [facility] CT HEAD WO CONon 11-28-2022 CT HEAD WO CON EXAM: CT HEAD WO CON , CT FACIAL BONES WO CON REASON FOR EXAM: Female, 27 years, DISORIENTATION, UNSPECIFIED. TECHNIQUE: Computed tomography of the head and facial bones is performed in the axial projection. Sagittal and coronal reconstructed images are performed. Dose reduction techniques were achieved by using automated exposure control and/or adjustment of mA and/or KVP according to patient size and/or use of iterative reconstruction technique. COMPARISON: 11/01/2017. FINDINGS: Normal calvarium. The ventricles have normal size and configuration for patient's age. Normal brain parenchyma. Normal basal ganglia. Normal brainstem. The cerebellum is normal. There is no evidence for acute ischemia. There is no evidence for acute hemorrhage. There is mild mucosal thickening within the paranasal sinuses. There is a lucency through the maxillary spine which may represent a fracture. The nasal bones are intact. Normal zygomas and pterygoid plates. Normal mandible with normal alignment at the temporomandibular joints. There is cerumen within the right auditory canal. There is dental disease. The orbital hazel are preserved. The globes are fracture. There is soft tissue swelling overlying the left temporal scalp. IMPRESSION: No acute intracranial abnormality. Lucency within the maxillary spine, which may represent fracture of indeterminate age. Please clinically correlate for point tenderness in this region. There is soft tissue swelling in the left temporal scalp. Electronically authenticated by: KAMILLA MILLS Date: 2022-11-28 18:[address] [facility] CULTURE BLOODon 11-28-2022 Microscopic examination of blood, culture Culture Observations: NO GROWTH AT 5 DAYS. Normal [facility] Comment on above: Performed By: #### C BC #### [facility] [address] [place] [address] Dr. Hemanth Kerr Microscopic examination of blood, culture Culture Observations: NO GROWTH AT [address] [facility] Comment on above: Performed By: #### B [id number] #### [facility] [address] [place] [address] Dr. Hemanth Kerr Covid-19 PCR ([facility])on 11-15 SARS-CoV-2 (COVID-19) RNA ELMO+probe Ql (Unsp spec) Not detected Normal NOT DETECTED [facility] Comment on above: Result Comment: When diagnostic testing is negative, the possibility of a false negative should be considered in the context of a patient's recent exposures and the presence of clinical signs and symptoms consistent with SARS-CoV-2. This test is not yet approved or cleared by the [place] FDA. When there are no FDA-approved or cleared tests available, and other criteria are met, FDA can make tests available under an emergency access mechanism called an Emergency Use Authorization (EUA). The EUA for this test is supported by the [place] and Human Service's declaration that circumstances exist to justify the emergency use of in vitro diagnostics for the detection and/or diagnosis of the virus that causes COVID-19. This EUA will remain in effect for the duration of the COVID-19 declaration justifying emergency of IVDs, unless it is terminated or revoked by the FDA (after which the test may no longer be used). Performed By: #### L ACT #### [facility] [address] [place] [address] Dr. Hemanth Kerr DRUG SCREEN RAPID (URINE)on 11-28-2022 AMP Positive Abnormal NEGATIVE [facility] Comment on above: Performed By: #### P REG #### [facility] [address] [place] [address] Dr. Hemanth Kerr BAR Negative Normal NEGATIVE [facility] Comment on above: Performed By: #### P REG #### [facility] [address] [place] [address] Dr. Hemanth Kerr BUP Negative Normal NEGATIVE [facility] Comment on above: Performed By: #### P REG #### [facility] [address] [place] [address] Dr. Hemanth Kerr BZO Negative Normal NEGATIVE [facility] Comment on above: Performed By: #### P REG #### [facility] [address] [place] [address] Dr. Hemanth Kerr YOLANDA Negative Normal NEGATIVE [facility] Comment on above: Performed By: #### P REG #### [facility] [address] [place] [address] Dr. Hemanth Kerr CUT-OFFS SEE BELOW Normal [facility] Comment on above: Result Comment: AMP (Amphetamine): 500ng/mL, BAR (Barbituates): 200 ng/mL, BZO (Benzodiazepines): 150 ng/mL, BUP (Buprenorphine): 10 ng/mL, YOLANDA (Cocaine): 150 ng/mL, mAMP (Methamphetamine): 500 ng/mL, MTD (Methadone): 200 ng/mL, OPI (Opiates): 100 ng/mL, OXY (Oxycodone): 100 ng/mL, PCP (Phencyclidine): 25 ng/mL, PPX (Propoxyphene): 300 ng/mL, THC (Cannabinoids): 50 ng/mL, TCA (Trycyclic Antidepressants): 300 ng/mL Performed By: #### P REG #### [facility] [address] [place] [address] Dr. Hemanth Kerr DRUG CUT HEADER DRUG CLASS TEST SYSTEM CUT-OFF CONCENTRATIONS ARE FOLLOWS: Normal [facility] Comment on above: Performed By: #### P REG #### [facility] [address] [place] [address] Dr. Hemanth Kerr mAMP Positive Abnormal NEGATIVE [facility] Comment on above: Performed By: #### P REG #### [facility] [address] [place] [address] Dr. Hemanth Kerr MTD Negative Normal NEGATIVE [facility] Comment on above: Performed By: #### P REG #### [facility] [address] [place] [address] Dr. Hemanth Kerr OPI Negative Normal NEGATIVE [facility] Comment on above: Performed By: #### P REG #### [facility] [address] [place] [address] Dr. Hemanth Kerr OXY Negative Normal NEGATIVE [facility] Comment on above: Performed By: #### P REG #### [facility] [address] [place] [address] Dr. Hemanth Kerr PCP Negative Normal NEGATIVE [facility] Comment on above: Performed By: #### P REG #### [facility] [address] [place] [address] Dr. Hemanth Kerr PPX Negative Normal NEGATIVE [facility] Comment on above: Performed By: #### P REG #### [facility] [address] [place] [address] Dr. Hemanth Kerr TCA Negative Normal NEGATIVE [facility] Comment on above: Performed By: #### P REG #### [facility] [address] [place] [address] Dr. Hemanth Kerr THC Negative Normal NEGATIVE [facility] Comment on above: Performed By: #### P REG #### [facility] [address] [place] [address] Dr. Hemanth Kerr ER URINE PROFILEon 3 Bilirubin Ql (U) Negative Normal NEGATIVE [facility] Comment on above: Performed By: #### P REG #### [facility] [address] [place] [address] Dr. Hemanth Kerr Clarity (U) CLEAR Normal CLEAR [facility] Comment on above: Performed By: #### P REG #### [facility] [address] [place] [address] Dr. Hemanth Kerr Color (U) LT. YELLOW Normal YELLOW [facility] Comment on above: Performed By: #### P REG #### [facility] [address] [place] [address] Dr. Hemanth HOLMAN A micrscopic examination will be performed if indicated. Normal [facility] Comment on above: Performed By: #### P REG #### [facility] [address] [place] [address] Dr. Hemanth Kerr Glucose Ql (U) Negative Normal NEGATIVE [facility] Comment on above: Performed By: #### P REG #### [facility] [address] [place] [address] Dr. Hemanth Kerr Hemoglobin Ql (U) Negative Normal NEGATIVE [facility] Comment on above: Performed By: #### P REG #### [facility] [address] [place] [address] Dr. Hemanth Kerr Ketones Ql (U) Negative Normal NEGATIVE [facility] Comment on above: Performed By: #### P REG #### [facility] [address] [place] [address] Dr. Hemanth Kerr LEUKOCYTES Negative Normal NEGATIVE [facility] Comment on above: Performed By: #### P REG #### [facility] [address] [place] [address] Dr. Hemanth Kerr Nitrite Ql (U) Positive Abnormal NEGATIVE [facility] Comment on above: Performed By: #### P REG #### [facility] [address] [place] [address] Dr. Hemanth Kerr pH (U) 7.5 [pH] Normal 5-[address] [facility] Comment on above: Performed By: #### P REG #### [facility] [address] [place] [address] Dr. Hemanth Kerr SPEC GRAVITY 1.020 Normal 1.005-<=1.025 [facility] Comment on above: Performed By: #### P REG #### [facility] [address] [place] [address] Dr. Hemanth Kerr UA PROTEIN TRACE Normal NEGATIVE/ TRACE [facility] Comment on above: Performed By: #### P REG #### [facility] [address] [place] [address] Dr. Hemanth Kerr UR MICRO IND INDICATED Normal [facility] Comment on above: Performed By: #### P REG #### [facility] [address] [place] [address] Dr. Hemanth Kerr Urobilinogen Qn (U) 1.0 {Jose'U}/dL Normal 0.2 - 1. [address] [facility] Comment on above: Performed By: #### P REG #### [facility] [address] [place] [address] Dr. Hemanth Kerr ETHANOL (BLD ALC)on 11-29-19 23 ALC NOTE NOTE: 80 mg/dl is th e legal limit for a blood alcohol level Normal [facility] Comment on above: Performed By: #### C MP #### [facility] [address] [place] [address] Dr. Hemanth Kerr Ethanol [Mass/Vol] mg/dL Normal [facility] Comment on above: Performed By: #### C MP #### [facility] [address] [place] [address] Dr. Hemanth Kerr LACTATE/LACTIC ACIDon 2022 Lactate [Moles/Vol] 0.7 mmol/L Normal 0.4-2.0 [facility] Comment on above: Performed By: #### L ACT #### [facility] [address] [address] [address] Hemanth Kerr Lactate [Moles/Vol] 9.0 mmol/L Critically high 0.4-2.[address] [facility] Comment on above: Performed By: #### L ACT #### [facility] [address] [address] [address] Hemanth Kerr PH VENOUS BLOODon 11-28-2022 PCO2 VENOUS 36.6 mmHg Critically low 40.0-52.0 [facility] Comment on above: Performed By: #### P HVEN #### [facility] [address] [place] [address] Dr. Hemanth Kerr pH VENOUS 7.354 Normal 7.330-7.[address] [facility] Comment on above: Performed By: #### P HVEN #### [facility] [address] [place] [address] Dr. Hemanth Kerr POINT OF CARE GLUCOSEon 11-15 Glucose [Mass/Vol] 127 mg/dL Critically high 74-106 [facility] Comment on above: Performed By: #### C BC #### [facility] [address] [place] [address] Dr. Hemanth Kerr PREG HCG QUALon 11-28-2022 , QUAL Negative Normal NEGATIVE [facility] Comment on above: Performed By: #### P REG #### [facility] [address] [place] [address] Dr. Hemanth Kerr PROF 14(COMP METB)on 023 Albumin [Mass/Vol] 3.7 g/dL Normal 3.4-5.0 [facility] Comment on above: Performed By: #### L ACT #### [facility] [address] [place] [address] Dr. Hemanth Kerr Albumin/Globulin [Mass ratio] 1.3 {ratio} Normal [facility] Comment on above: Performed By: #### L ACT #### [facility] [address] [address] [address] Hemanth Kerr ALP [Catalytic activity/Vol] 72 U/L Normal 46-[address] [facility] Comment on above: Performed By: #### L ACT #### [facility] [address] [address] [address] Hemanth Kerr ALT [Catalytic activity/Vol] 42 U/L Normal 14-[address] [facility] Comment on above: Performed By: #### L ACT #### [facility] [address] [address] [address] Hemanth Kerr Anion gap [Moles/Vol] 16.3 mmol/L Normal [facility] Comment on above: Performed By: #### L ACT #### [facility] [address] [place] [address] Dr. Hemanth Kerr AST [Catalytic activity/Vol] 45 U/L Critically high 15-[address] [facility] Comment on above: Performed By: #### L ACT #### [facility] [address] [place] [address] Dr. Hemanth Kerr Bilirubin [Mass/Vol] 0.4 mg/dL Normal 0.2-1.[address] [facility] Comment on above: Performed By: #### L ACT #### [facility] [address] [place] [address] Dr. Hemanth Kerr Calcium [Mass/Vol] 8.8 mg/dL Normal 8.5-10.1 [facility] Comment on above: Performed By: #### L ACT #### [facility] [address] [place] [address] Dr. Hemanth Kerr Chloride [Moles/Vol] 107 mmol/L Normal 98-[address] [facility] Comment on above: Performed By: #### L ACT #### [facility] [address] [address] [address] Hemanth Kerr CO2 [Moles/Vol] 21.8 mmol/L Normal 21.0-32.0 [facility] Comment on above: Performed By: #### L ACT #### [facility] [address] [place] [address] Dr. Hemanth Kerr Creatinine [Mass/Vol] 1.32 mg/dL Critically high 0.55-1.[address] [facility] Comment on above: Performed By: #### L ACT #### [facility] [address] [address] [address] Hemanth Kerr EGFR-AF MALTESE 58 mL/min/1.73m2 Critically low >=[address] [facility] Comment on above: Performed By: #### L ACT #### [facility] [address] [address] [address] Hemanth Kerr EGFR-NON AF MALTESE 48 mL/min/1.73m2 Critically low >=[address] [facility] Comment on above: Performed By: #### L ACT #### [facility] [address] [place] [address] Dr. Hemanth Kerr Globulin (S) [Mass/Vol] 2.9 g/dL Normal [facility] Comment on above: Performed By: #### L ACT #### [facility] [address] [address] [address] Hemanth Kerr Glucose [Mass/Vol] 143 mg/dL Critically high 74-106 [facility] Comment on above: Performed By: #### L ACT #### [facility] [address] [address] [address] Hemanth Kerr Potassium [Moles/Vol] 3.1 mmol/L Critically low 3.5-5.[address] [facility] Comment on above: Performed By: #### L ACT #### [facility] [address] [address] [address] Hemanth Kerr Protein [Mass/Vol] 6.6 g/dL Normal 6.4-8.2 [facility] Comment on above: Performed By: #### L ACT #### [facility] [address] [address] [address] Hemanth Kerr Sodium [Moles/Vol] 142 mmol/L Normal 136-145 [facility] Comment on above: Performed By: #### L ACT #### [facility] [address] [place] [address] Dr. Hemanth Kerr Urea nitrogen [Mass/Vol] 17.0 mg/dL Normal 7.0-18.[address] [facility] Comment on above: Performed By: #### L ACT #### [facility] [address] [place] [address] Dr. Hemanth Kerr Urea nitrogen/Creatinine [Mass ratio] 12.9 mg/mg Normal [facility] Comment on above: Performed By: #### L ACT #### [facility] [address] [place] [address] Dr. Hemanth Kerr PROTIMEon 11-28-2022 INR Coag (PPP) [Relative time] 0.97 {INR} Normal [facility] Comment on above: Performed By: #### P T, PTT #### [facility] [address] [place] [address] Dr. Hemanth Kerr INR GUIDELINES SEE BELOW Normal [facility] Comment on above: Result Comment: CHAN RED INR: 2.0 - 3.0 CONDITIONS NOT LISTED BELOW 2.5 - 3.5 FOR PROSTHETIC HEART VALVE REPLACEMENT 2.5 - 3.5 RECURRENT THROMBOSIS Performed By: #### P T, PTT #### [facility] [address] [place] [address] Dr. Hemanth Kerr PT Coag (PPP) [Time] 10.3 s Normal 9.0-11.[address] [facility] Comment on above: Performed By: #### P T, PTT #### [facility] [address] [place] [address] Dr. Hemanth Kerr PTTon 11-28-2022 aPTT Coag (Bld) [Time] 25.4 s Normal 22.3-36.[address] [facility] Comment on above: Performed By: #### P T, PTT #### [facility] [address] [place] [address] Dr. Hemanth Kerr SALICYLATEon 11-28-2022 SALICYLATE <2.8 Normal <=19.[address] [facility] Comment on above: Performed By: #### C MP #### [facility] [address] [place] [address] Dr. Hemanth Kerr TROPONIN, HIGH SENSITIVITYon 11-28-2022 HSTROP 4.2 pg/mL Normal 4.0-51.[address] [facility] Comment on above: Result Comment: CUT- OFF POINTS HAVE BEEN ESTABLISHED BASED ON THE FOURTH UNIVERSAL DEFINITIONS OF MYOCARDIAL INFARCTION. THE UPPER REFERENCE LIMIT (URL) OF TROPONIN, DEFINED THE 99TH PERCENTILE OF cTnI DISTRIBUTION IN A REFERENCE POPULATION, HAS BEEN CONFIRMED THE DECISION THRESHOLD FOR RI DIAGNOSIS. Performed By: #### C MP #### [facility] [address] [place] [address] Dr. Hemanth Kerr TSHon 11-28-2022 TSH 3.476 uIU/mL Normal 0.358-3.740 [facility] Comment on above: Performed By: #### L ACT #### [facility] [address] [place] [address] Dr. Hemanth Kerr URINE MICROSCOPIC ONLYon BACTERIA LARGE Abnormal NONE SEEN [facility] Comment on above: Performed By: #### P REG #### [facility] [address] [place] [address] Dr. Hemanth Kerr Bacteria identified Cx Nom (U) INDICATED Normal [facility] Comment on above: Performed By: #### P REG #### [facility] [address] [place] [address] Dr. Hemanth Kerr CAST SEEN Abnormal NONE SEEN [facility] Comment on above: Performed By: #### P REG #### [facility] [address] [place] [address] Dr. Hemanth Kerr COARSE GRANULAR CAST RARE Normal [facility] Comment on above: Performed By: #### P REG #### [facility] [address] [place] [address] Dr. Hemanth Kerr Crystals LM Nom (Urine sed) NONE SEEN Normal NONE SEEN [facility] Comment on above: Performed By: #### P REG #### [facility] [address] [place] [address] Dr. Hemanth Kerr Epithelial cells LM Ql (Urine sed) RARE Normal NONE SEEN /RARE [facility] Comment on above: Performed By: #### P REG #### [facility] [address] [place] [address] Dr. Hemanth Kerr MUCOUS NONE SEEN Normal NONE SEEN [facility] Comment on above: Performed By: #### P REG #### [facility] [address] [place] [address] Dr. Hemanth Kerr RBC 0-2 Normal 0-[address] [facility] Comment on above: Performed By: #### P REG #### [facility] [address] [place] [address] Dr. Hemanth Kerr WBC 2-5 Abnormal NONE SEEN [facility] Comment on above: Performed By: #### P REG #### [facility] [address] [address] [address] Hemanth Kerr XR CHEST 1 Von 11-28-2022 XR CHEST 1 V EXAM: XR CHEST 1 V REASON FOR EXAM: Female, 27 years, Altered mental status. TECHNIQUE: A single AP view of the chest is performed. COMPARISON: 07/09/2022. FINDINGS: The lungs are expanded and clear. Normal pleura. Normal size heart. Normal mediastinum and neisha. Normal visualized pulmonary arteries. Normal visualized aortic arch and descending thoracic aorta. Normal visualized thoracic spine. Normal visualized ribs, clavicles, and shoulders. There is no demonstrated abnormality of the visualized soft tissue structures of the upper abdomen. IMPRESSION: Normal examination of the chest. Electronically authenticated by: KAMILLA MILLS Date: 2022-11-28 17:[address] [facility] CULTURE URINEon 10-13-2022 CULTURE URINE Isolate 1 Escherichia coli >100,000 cfu/mL of ORGANISM 1 Escherichia coli ANTIBIOTIC M.I.C RX STATUS Ampicillin >=32 R F Ampicillin/Sulbactam 16 I F Piperacillin/Tazobact am <=4 S F Cefazolin <=4 S F Ceftazidime <=1 S F Ceftriaxone <=1 S F Ertapenem <=0.5 S F Imipenem <=0.25 S F Amikacin <=2 S F Gentamicin <=1 S F Tobramycin <=1 S F Ciprofloxacin <=0.25 S F Levofloxacin <=0.12 S F Nitrofurantoin <=16 S F Trimethoprim/Sulfamet hoxazole >=320 R F Normal [facility] Comment on above: Performed By: #### U RCX #### [facility] [address] [address] [address] Hemanth Kerr CBC AUTO DIFFon 10-11-2022 BASO # 0.0 103/ul Normal 0.0-0.[address] [facility] Comment on above: Performed By: #### C BC #### [facility] [address] [place] [address] Dr. Hemanth Kerr Basophils/100 WBC (Bld) 0.3 % Normal 0.2-2.[address] [facility] Comment on above: Performed By: #### C BC #### [facility] [address] [place] [address] Dr. Hemanth Kerr EO # 0.0 103/ul Normal 0.0-0.[address] [facility] Comment on above: Performed By: #### C BC #### [facility] [address] [place] [address] Dr. Hemanth Kerr Eosinophils/100 WBC (Bld) 0.4 % Critically low 0.9-7.[address] [facility] Comment on above: Performed By: #### C BC #### [facility] [address] [place] [address] Dr. Hemanth Kerr Erythrocyte distribution width (RBC) [Ratio] 12.2 % Normal 11.0-15.[address] [facility] Comment on above: Performed By: #### C BC #### [facility] [address] [place] [address] Dr. Hemanth Kerr Hematocrit (Bld) [Volume fraction] 38.6 % Normal 36.0-48.[address] [facility] Comment on above: Performed By: #### C BC #### [facility] [address] [place] [address] Dr. Hemanth Kerr Hemoglobin (Bld) [Mass/Vol] 12.0 g/dL Normal 12.0-16.[address] [facility] Comment on above: Performed By: #### C BC #### [facility] [address] [place] [address] Dr. Hemanth Kerr IG # 0.07 10e3/ul Critically high 0.00-0.03 [facility] Comment on above: Performed By: #### C BC #### [facility] [address] [place] [address] Dr. Hemanth Kerr IG % 0.7 % Critically high 0.0-0.5 [facility] Comment on above: Performed By: #### C BC #### [facility] [address] [place] [address] Dr. Hemanth Kerr LYMPH # 1.2 103/ul Normal 1.2-3.[address] [facility] Comment on above: Performed By: #### C BC #### [facility] [address] [place] [address] Dr. Hemanth Kerr Lymphocytes/100 WBC (Bld) 12.1 % Critically low 20.5-60.[address] [facility] Comment on above: Performed By: #### C BC #### [facility] [address] [place] [address] Dr. Hemanth Kerr MANUAL DIFF REQ NO Normal [facility] Comment on above: Performed By: #### C BC #### [facility] [address] [place] [address] Dr. Hemanth Kerr MCH (RBC) [Entitic mass] 28.0 pg Normal 26.7-34.[address] [facility] Comment on above: Performed By: #### C BC #### [facility] [address] [place] [address] Dr. Hemanth Kerr MCHC (RBC) [Mass/Vol] 31.1 g/dL Normal 29.9-35.[address] [facility] Comment on above: Performed By: #### C BC #### [facility] [address] [place] [address] Dr. Hemanth Kerr MCV (RBC) [Entitic vol] 90.2 fL Normal 81.0-99.[address] [facility] Comment on above: Performed By: #### C BC #### [facility] [address] [place] [address] Dr. Hemanth Kerr MONO # 0.7 103/ul Normal 0.3-0.[address] [facility] Comment on above: Performed By: #### C BC #### [facility] [address] [address] [address] Hemanth Kerr Monocytes/100 WBC (Bld) 6.9 % Normal 1.7-12.[address] [facility] Comment on above: Performed By: #### C BC #### [facility] [address] [address] [address] Hemanth Kerr NEUT # 8.1 103/ul Critically high 1.4-6.5 [facility] Comment on above: Performed By: #### C BC #### [facility] [address] [address] [address] Hemanth Kerr Neutrophils/100 WBC (Bld) 79.6 % Critically high 43.0-75.[address] [facility] Comment on above: Performed By: #### C BC #### [facility] [address] [place] [address] Dr. Hemanth Kerr Platelet mean volume (Bld) [Entitic vol] 10.8 fL Normal 9.5-13.[address] [facility] Comment on above: Performed By: #### C BC #### [facility] [address] [address] [address] Hemanth Kerr PLT 452 103/ul Critically high 150-450 [facility] Comment on above: Performed By: #### C BC #### [facility] [address] [address] [address] Hemanth Kerr RBC 4.28 106/ul Normal 4.20-5.[address] [facility] Comment on above: Performed By: #### C BC #### [facility] [address] [place] [address] Dr. Hemanth Kerr WBC 10.1 103/ul Normal 4.0-11.[address] [facility] Comment on above: Performed By: #### C BC #### [facility] [address] [place] [address] ABD/PELVIS WO CONon 10-11 CT ABD/PELVIS WO CON EXAMINATION: CT ABD/PELVIS WO CON HISTORY: Flank pain ; bilateral flank pain radiating to bilateral anterior lower quadrants COMPARISON: No relevant comparison available. TECHNIQUE: Axial, Coronal, and Sagittal images were obtained without and/or with IV contrast as indicated by examination type. Dose reduction techniques were achieved by using automated exposure control and/or adjustment of mA and/or kV according to patient size and/or use of iterative reconstruction technique. FINDINGS: LUNG BASES: No visible pulmonary or pleural disease. LIVER: No enlargement, atrophy, suspicious density, or significant focal lesion. BILIARY: No dilatation or calcification. PANCREAS: No lesion, fluid collection, or abnormal duct dilatation. SPLEEN: No enlargement or focal lesion. ADRENALS: No mass or enlargement. KIDNEYS: No mass, obstruction, or calcification. BOWEL/MESENTERY: No visible mass, obstruction, or bowel wall thickening. AORTA/VASCULAR: No aneurysm or dissection. RETROPERITONEUM: No mass or adenopathy. LYMPH NODES: No adenopathy. URINARY BLADDER: No visible focal wall thickening, lesion, or calculus. PELVIC ORGANS: Small amount of free fluid within the pelvic cul-de-sac. No visible mass. Pelvic organs appropriate for patient age. ABDOMINAL WALL: No mass or hernia. BONES: No bony lesion or fracture. OTHER: Negative. IMPRESSION: 1.Small moderate free fluid within the pelvic cul-de-sac of uncertain etiology; possibly from a recently ruptured ovarian cyst. 2.Unremarkable bowel. 3. No urinary tract calculi or obstructive uropathy. Electronically authenticated by: CHRISTINE SÁNCHEZ Date: 2022-10-11 14:[address] [facility] ER URINE PROFILEon 3 Bilirubin Ql (U) Negative Normal NEGATIVE [facility] Comment on above: Performed By: #### L ACT #### [facility] [address] [place] [address] Dr. Hemanth Kerr Clarity (U) CLEAR Normal CLEAR [facility] Comment on above: Performed By: #### L ACT #### [facility] [address] [address] [address] Hemanth Kerr Color (U) LT. YELLOW Normal YELLOW [facility] Comment on above: Performed By: #### L ACT #### [facility] [address] [place] [address] Dr. Hemanth Kerr ERUAHD A micrscopic examination will be performed if indicated. Normal [facility] Comment on above: Performed By: #### L ACT #### [facility] [address] [address] [address] Hemanth Kerr Glucose Ql (U) Negative Normal NEGATIVE [facility] Comment on above: Performed By: #### L ACT #### [facility] [address] [address] [address] Hemanth Kerr Hemoglobin Ql (U) LARGE Abnormal NEGATIVE [facility] Comment on above: Performed By: #### L ACT #### [facility] [address] [address] [address] Hemanth Kerr Ketones Ql (U) Negative Normal NEGATIVE [facility] Comment on above: Performed By: #### L ACT #### [facility] [address] [place] [address] Dr. Hemanth Kerr LEUKOCYTES SMALL Abnormal NEGATIVE [facility] Comment on above: Performed By: #### L ACT #### [facility] [address] [place] [address] Dr. Hemanth Kerr Nitrite Ql (U) Negative Normal NEGATIVE [facility] Comment on above: Performed By: #### L ACT #### [facility] [address] [place] [address] Dr. Hemanth Kerr pH (U) 6.5 [pH] Normal 5-[address] [facility] Comment on above: Performed By: #### L ACT #### [facility] [address] [place] [address] Dr. Hemanth Kerr Protein (U) [Mass/Vol] 30 mg/dL Abnormal NEGATIVE/ TRACE [facility] Comment on above: Performed By: #### L ACT #### [facility] [address] [place] [address] Dr. Hemanth Kerr SPEC GRAVITY <=1.005 Abnormal 1.005-<=1.025 [facility] Comment on above: Performed By: #### L ACT #### [facility] [address] [place] [address] Dr. Hemanth Kerr UR MICRO IND INDICATED Normal [facility] Comment on above: Performed By: #### L ACT #### [facility] [address] [address] [address] Hemanth Kerr Urobilinogen Qn (U) 1.0 {Jose'U}/dL Normal 0.2 - 1. [address] [facility] Comment on above: Performed By: #### L ACT #### [facility] [address] [address] [address] Hemanth Kerr PREG HCG QUALon 10-11-2022 , QUAL Negative Normal NEGATIVE [facility] Comment on above: Performed By: #### P REG #### [facility] [address] [address] [address] Hemanth Kerr PROF CHEM 8 (BAS METB)on Anion gap [Moles/Vol] 9.4 mmol/L Normal [facility] Comment on above: Performed By: #### L ACT #### [facility] [address] [address] [address] Hemanth Kerr Calcium [Mass/Vol] 8.8 mg/dL Normal 8.5-10.1 [facility] Comment on above: Performed By: #### L ACT #### [facility] [address] [address] [address] Hemanth Kerr Chloride [Moles/Vol] 97 mmol/L Critically low 98-[address] [facility] Comment on above: Performed By: #### L ACT #### [facility] [address] [address] [address] Hemanth Kerr CO2 [Moles/Vol] 32.4 mmol/L Critically high 21.0-32.[address] [facility] Comment on above: Performed By: #### L ACT #### [facility] [address] [address] [address] Hemanth Kerr Creatinine [Mass/Vol] 0.65 mg/dL Normal 0.55-1.[address] [facility] Comment on above: Performed By: #### L ACT #### [facility] [address] [address] [address] Hemanth Kerr EGFR-AF MALTESE >60 Normal >=60 [facility] Comment on above: Performed By: #### L ACT #### [facility] [address] [place] [address] Dr. Hemanth Kerr EGFR-NON AF MALTESE >60 Normal >=[address] [facility] Comment on above: Performed By: #### L ACT #### [facility] [address] [address] [address] Hemanth Kerr Glucose [Mass/Vol] 117 mg/dL Critically high 74-106 [facility] Comment on above: Performed By: #### L ACT #### [facility] [address] [address] [address] Hemanth Kerr Potassium [Moles/Vol] 2.8 mmol/L Critically low 3.5-5.[address] [facility] Comment on above: Performed By: #### L ACT #### [facility] [address] [place] [address] Dr. Hemanth Kerr Sodium [Moles/Vol] 135 mmol/L Critically low 136-145 [facility] Comment on above: Performed By: #### L ACT #### [facility] [address] [place] [address] Dr. Hemanth Kerr Urea nitrogen [Mass/Vol] 8.0 mg/dL Normal 7.0-18.[address] [facility] Comment on above: Performed By: #### L ACT #### [facility] [address] [place] [address] Dr. Hemanth Kerr Urea nitrogen/Creatinine [Mass ratio] 12.3 mg/mg Normal [facility] Comment on above: Performed By: #### L ACT #### [facility] [address] [place] [address] Dr. Hemanth Kerr URINE MICROSCOPIC ONLYon BACTERIA SMALL Abnormal NONE SEEN [facility] Comment on above: Performed By: #### L ACT #### [facility] [address] [place] [address] Dr. Hemanth Kerr Bacteria identified Cx Nom (U) INDICATED Normal [facility] Comment on above: Performed By: #### L ACT #### [facility] [address] [place] [address] Dr. Hemanth Kerr CAST NONE SEEN Normal NONE SEEN [facility] Comment on above: Performed By: #### L ACT #### [facility] [address] [place] [address] Dr. Hemanth Kerr Crystals LM Nom (Urine sed) NONE SEEN Normal NONE SEEN [facility] Comment on above: Performed By: #### L ACT #### [facility] [address] [place] [address] Dr. Hemanth Kerr Epithelial cells LM Ql (Urine sed) FEW Abnormal NONE SEEN /RARE [facility] Comment on above: Performed By: #### L ACT #### [facility] [address] [place] [address] Dr. Hemanth Kerr MUCOUS NONE SEEN Normal NONE SEEN [facility] Comment on above: Performed By: #### L ACT #### [facility] [address] [place] [address] Dr. Hemanth Kerr RBC 0-2 Normal 0-[address] [facility] Comment on above: Performed By: #### L ACT #### [facility] [address] [place] [address] Dr. Hemanth Kerr WBC 10-20 Abnormal NONE SEEN [facility] Comment on above: Performed By: #### L ACT #### [facility] [address] [place] [address] Dr. Hemanth Kerr PREG QUANT HCGon 09-12-2022 HCG QUANT 66 mIU/mL Normal [facility] Comment on above: Performed By: #### C MP #### [facility] [address] [place] [address] Dr. Hemanth Kerr HCG RANGE SEE BELOW Normal [facility] Comment on above: Result Comment: 5-50 0.2-1 WEEK 50-500 1-2 WEEKS 100-5,000 2-3 WEEKS 500-10,000 3-4 WEEKS 1,000-50,000 4-5 WEEKS 10,000-100,000 5-6 WEEKS 15,000-200,000 6-8 WEEKS 10,000-100,000 2-3 MONTHS Performed By: #### C MP #### [facility] [address] [place] [address] Dr. Hemanth Kerr CBC AUTO DIFFon 08-16-2022 BASO # 0.0 103/ul Normal 0.0-0.[address] [facility] Comment on above: Performed By: #### L ACT #### [facility] [address] [place] [address] Dr. Hemanth Kerr Basophils/100 WBC (Bld) 0.6 % Normal 0.2-2.[address] [facility] Comment on above: Performed By: #### L ACT #### [facility] [address] [place] [address] Dr. Hemanth Kerr EO # 0.1 103/ul Normal 0.0-0.[address] [facility] Comment on above: Performed By: #### L ACT #### [facility] [address] [place] [address] Dr. Hemanth Kerr Eosinophils/100 WBC (Bld) 1.3 % Normal 0.9-7.[address] [facility] Comment on above: Performed By: #### L ACT #### [facility] [address] [place] [address] Dr. Hemanth Kerr Erythrocyte distribution width (RBC) [Ratio] 12.0 % Normal 11.0-15.[address] [facility] Comment on above: Performed By: #### L ACT #### [facility] [address] [place] [address] Dr. Hemanth Kerr Hematocrit (Bld) [Volume fraction] 35.6 % Critically low 36.0-48.[address] [facility] Comment on above: Performed By: #### L ACT #### [facility] [address] [place] [address] Dr. Hemanth Kerr Hemoglobin (Bld) [Mass/Vol] 12.4 g/dL Normal 12.0-16.[address] [facility] Comment on above: Performed By: #### L ACT #### [facility] [address] [place] [address] Dr. Hemanth Kerr IG # 0.02 10e3/ul Normal 0.00-0.[address] [facility] Comment on above: Performed By: #### L ACT #### [facility] [address] [place] [address] Dr. Hemanth Kerr IG % 0.3 % Normal 0.0-0.[address] [facility] Comment on above: Performed By: #### L ACT #### [facility] [address] [place] [address] Dr. Hemanth Kerr LYMPH # 1.9 103/ul Normal 1.2-3.[address] [facility] Comment on above: Performed By: #### L ACT #### [facility] [address] [place] [address] Dr. Hemanth Kerr Lymphocytes/100 WBC (Bld) 27.5 % Normal 20.5-60.[address] [facility] Comment on above: Performed By: #### L ACT #### [facility] [address] [place] [address] Dr. Hemanth Kerr MANUAL DIFF REQ NO Normal [facility] Comment on above: Performed By: #### L ACT #### [facility] [address] [place] [address] Dr. Hemanth Kerr MCH (RBC) [Entitic mass] 29.6 pg Normal 26.7-34.[address] [facility] Comment on above: Performed By: #### L ACT #### [facility] [address] [place] [address] Dr. Hemanth Kerr MCHC (RBC) [Mass/Vol] 34.8 g/dL Normal 29.9-35.[address] [facility] Comment on above: Performed By: #### L ACT #### [facility] [address] [place] [address] Dr. Hemanth Kerr MCV (RBC) [Entitic vol] 85.0 fL Normal 81.0-99.[address] [facility] Comment on above: Performed By: #### L ACT #### [facility] [address] [place] [address] Dr. Hemanth Kerr MONO # 0.4 103/ul Normal 0.3-0.[address] [facility] Comment on above: Performed By: #### L ACT #### [facility] [address] [place] [address] Dr. Hemanth Kerr Monocytes/100 WBC (Bld) 6.3 % Normal 1.7-12.[address] [facility] Comment on above: Performed By: #### L ACT #### [facility] [address] [address] [address] Hemanth Kerr NEUT # 4.5 103/ul Normal 1.4-6.[address] [facility] Comment on above: Performed By: #### L ACT #### [facility] [address] [id number] Hemanth Kerr Neutrophils/100 WBC (Bld) 64.0 % Normal 43.0-75.[address] [facility] Comment on above: Performed By: #### L ACT #### [facility] [address] [address] [address] Hemanth Kerr Platelet mean volume (Bld) [Entitic vol] 10.6 fL Normal 9.5-13.[address] [facility] Comment on above: Performed By: #### L ACT #### [facility] [address] [address] [address] Hemanth Kerr PLT 247 103/ul Normal 150-[address] [facility] Comment on above: Performed By: #### L ACT #### [facility] [address] [id number] Hemanth Kerr RBC 4.19 106/ul Critically low 4.20-5.40 [facility] Comment on above: Performed By: #### L ACT #### [facility] [address] [address] [address] Hemanth Kerr WBC 7.0 103/ul Normal 4.0-11.[address] [facility] Comment on above: Performed By: #### L ACT #### [facility] [address] [address] [address] Hemanth Kerr Covid-19 PCR ([facility]on 07-20 SARS-CoV-2 (COVID-19) RNA ELMO+probe Ql (Unsp spec) Not detected Normal NOT DETECTED [facility] Comment on above: Result Comment: This test is not yet approved or cleared by the [place] FDA. When there are no FDA-approved or cleared tests available, and other criteria are met, FDA can make tests available under an emergency access mechanism called an Emergency Use Authorization (EUA). The EUA for this test is supported by the [place] and Human Service's (HHS's) declaration that circumstances exist to justify the emergency use of in vitro diagnostics for the detection and/or diagnosis of the virus that causes COVID-19. This EUA will remain in effect (meaning this test can be used) for the duration of the COVID-19 declaration justifying emergency of IVDs, unless it is terminated or revoked by FDA (after which the test may no longer be used). When diagnostic testing is negative, the possibility of a false negative should be considered in the context of a patient's recent exposures and the presence of clinical signs and symptoms consistent with SARS-CoV-2. Performed By: #### C MP #### [facility] [address] [place] [address] Dr. Hemanth Kerr PREG QUANT HCGon 08-16-2022 HCG QUANT [id number] mIU/mL Normal [facility] Comment on above: Performed By: #### P REG #### [facility] [address] [place] [address] Dr. Hemanth Kerr HCG RANGE SEE BELOW Normal [facility] Comment on above: Result Comment: 5-50 0.2-1 WEEK 50-500 1-2 WEEKS 100-5,000 2-3 WEEKS 500-10,000 3-4 WEEKS 1,000-50,000 4-5 WEEKS 10,000-100,000 5-6 WEEKS 15,000-200,000 6-8 WEEKS 10,000-100,000 2-3 MONTHS Performed By: #### P REG #### [facility] [address] [place] [address] Dr. Hemanth Kerr PREG QUANT HCGon 08-14-2022 HCG QUANT 96951 mIU/mL Normal [facility] Comment on above: Performed By: #### P REG #### [facility] [address] [place] [address] Dr. Hemanth Kerr HCG RANGE SEE BELOW Normal [facility] Comment on above: Result Comment: 5-50 0.2-1 WEEK 50-500 1-2 WEEKS 100-5,000 2-3 WEEKS 500-10,000 3-4 WEEKS 1,000-50,000 4-5 WEEKS 10,000-100,000 5-6 WEEKS 15,000-200,000 6-8 WEEKS 10,000-100,000 2-3 MONTHS Performed By: #### P REG #### [facility] [address] [address] [address] Hemanth Kerr US PREG TVon 08-14-2022 US PREG TV EXAMINATION: US PREG TV HISTORY: Routine care COMPARISON: Ultrasound transvaginal 07/27/2022 FINDINGS: GESTATIONAL SAC: Abnormally elongated with small amount of internal debris. YOLK SAC: Collapsed. POLE: Present. CARDIAC: Absent. UTERUS: Subchorionic hematoma 2.4 x 1.3 x 1.1 cm. OVARIES: Right: Contains a 2.9 cm benign-appearing cyst. Left: Normal. CERVIX: 3.3 cm in length and closed. CUL-DE-SAC: Normal. OTHER: None. AGE BY LMP: 8 weeks 5 days ANGELA BY LMP: 03/21/2023 AGE BY US CRL: 6 weeks 3 days ANGELA BY US CRL: 04/06/2023 IMPRESSION: 1. Above findings are suggestive of impending . Follow-up recommended. Electronically authenticated by: CHRISTINE SÁNCHEZ Date: 2022-08-14 16:[address] [facility] US PREG TVon 07-27-2022 US PREG TV EXAMINATION: US PREG TV HISTORY: Missed period COMPARISON: No relevant comparison available. FINDINGS: GESTATIONAL SAC: Present and normal appearing. YOLK SAC: Present and normal appearing. POLE: Absent CARDIAC: Absent UTERUS: Normal size and appearance. OVARIES: Right: Corpus lutein cyst. Left: Not seen. CERVIX: 3.8 cm in length and closed. CUL-DE-SAC: Normal. OTHER: None. AGE BY LMP: 6 weeks 4 days ANGELA BY LMP: 03/18/2023 AGE BY US SAC SIZE: 5 weeks 6 days ANGELA BY US SAC SIZE: 03/23/2023 IMPRESSION: 1. Early intrauterine . Electronically authenticated by: CHRISTINE SÁNCHEZ Date: 2022-07-27 17:[address] [facility] XR CHEST 1 Von 07-09-2022 XR CHEST 1 V PORTABLE CHEST X-RAY . INDICATION: Cough. COMPARISON: 10/11/2021 TECHNIQUE: Single AP portable chest radiograph. FINDINGS: TUBES AND LINES: None. LUNGS: Lungs are clear. PLEURA: No effusions or pneumothorax. HEART AND MEDIASTINUM: Within normal limits for portable technique. OSSEOUS STRUCTURES: No acute abnormality. IMPRESSION: No acute findings. Electronically authenticated by: FELIX WEBB Date: 2022-07-09 12:06 Normal [facility]12[facility]2021 [facility] NOE ERVIN ([id number]) 1995 F Date Time Provider Department 12/12/21 KING SUAZO During your visit today, we recorded the following information about you: Angelia Almazan 12/12/2021 11:16 AM Signed Pleases sign pending new cbc order. Thanks, Angelia Almazan MA Allergies As of Date: 12/12/2021 (No Known Allergies) Date Reviewed: 12/12/2021 Reviewed by: Jasmin Silverio APRN.[facility] - Fully Assessed Reason for Visit: Lab Orders [1688] Primary Visit Diagnosis:Iron deficiency anemia, unspecified iron deficiency anemia type [D50.9] Order(s):CBC + DIFF [SQCBCDIF] Order #: [id number] FUTURE Prescriptions as of 12/12/2021 - gabapentin (NEURONTIN) 400 mg capsule Take by mouth. - Polysaccharide Iron Complex 180 mg iron cap Take by mouth. - aspirin 81 mg cap Take 81 mg by mouth once daily. - ONDANSETRON HCL ORAL Take 4 mg by mouth as needed. Problem List As Of Date: 12/12/2021 (None) Encounter Status:Closed by JASMIN SILVERIO on 12/12/21 Normal [facility] 11-10-2021 [facility] NOE ERVIN ([id number]) 1995 F Date Time Provider Department 11/10/21 JENNYFER DE LA O During your visit today, we recorded the following information about you: Jennyfer De La O RN 11/10/2021 3:38 PM Signed ----- Message from King Suazo MD sent at 11/09/2021 1:58 PM EST ----- Please inform the patient that her iron levels are good, but she still needs the third dose of IV iron. Her B12 is slightly low. Options would be [id number] B12 tablets 2 mg daily or start a monthly injection. Thanks, MELANY De La O RN 11/10/2021 3:40 PM Signed Informed pt of Dr Suazo's message. Pt verbalized understanding and states [facility] told her only 2 doses of the IV iron are given so she does not need 3rd dose. LAMBERTO Kothari MD 11/10/2021 4:32 PM Signed Turns out she received Injectafer 750x2. Typically we do not give a third dose so okay not to receive. She should start oral or injectable B12 however. Thanks, MELANY De La O RN 11/10/2021 4:35 PM Signed Pt agreeable to begin oral B12. Jennyfer De La O RN Allergies As of Date: 11/10/2021 (No Known Allergies) Date Reviewed: 11/08/2021 Reviewed by: Angelia Almazan - Fully Assessed Reason for Visit: Results [95] Prescriptions as of 11/10/2021 - gabapentin (NEURONTIN) 400 mg capsule Take by mouth. - Polysaccharide Iron Complex 180 mg iron cap Take by mouth. - aspirin 81 mg cap Take 81 mg by mouth once daily. - ONDANSETRON HCL ORAL Take 4 mg by mouth as needed. Problem List As Of Date: 11/10/2021 (None) Encounter Status:Closed by JENNYFER DE LA O on 11/10/21 Normal [facility] 11-08-2021 [facility] Visit (SP) Office ([place]) NOE ERVIN ([id number]) 1995 F Date Time Provider Department 11/08/21 11:00 AM KING SUAZO During your visit today, we recorded the following information about you: Temperature Pulse Respiration Blood pressure 97.7 degrees 108/minute 16/minute 127/70 Weight 93.4 kg King Suazo MD 11/08/2021 3:47 PM Signed PATIENT NAME: Noe Ervin DATE: 11/08/2021 PRIMARY CARE PHYSICIAN: Dr. Rodo Menchaca OTHER PHYSICIANS: Dr. Yousif Aparicio HPI: This is a 26 year old female, currently in her third trimester of , referred for management of iron deficiency anemia. Apparently the patient was initially discovered to be anemic after the delivery of her first child in November 2013. She recalls receiving a blood transfusion after the delivery, and needed no further treatment. She had a second child without any mention of anemia. She is currently with her third child, set to deliver sometime in the next few weeks. Earlier in the , May 2021, labs revealed hemoglobin of 9.9 with a low MCV. She was started on vitamins with iron. On 10/11/2021 she developed severe shortness of breath, and is seen at [place] emergency room. Labs revealed a hemoglobin of 6.5 with a markedly low MCV. She was given a blood transfusion x2. She subsequently received IV Injectafer on 10/19/2021 and again on 10/26/2021. Since then she has felt much better. She had ice craving which are improving. Shortness of breath has resolved. Severe fatigue and weakness are slowly improving. 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 She has hepatitis C, but has not received treatment. She has a history of fibromyalgia for which she takes gabapentin. On review of systems she has had no unusual weight loss. No evidence of abnormal bleeding. No change in bowel habits. MEDICATIONS: Current Outpatient Medications Medication Sig - gabapentin (NEURONTIN) 400 mg capsule Take by mouth. - Polysaccharide Iron Complex 180 mg iron cap Take by mouth. - aspirin 81 mg cap Take 81 mg by mouth once daily. - ONDANSETRON HCL ORAL Take 4 mg by mouth as needed. No current facility-administered medications for this visit. ALLERGIES: ALLERGIES No Known Allergies PAST MEDICAL HISTORY: PAST MEDICAL HISTORY Diagnosis Date - Anemia - Anxiety - Bacterial vaginitis - Bipolar 1 disorder (HCC) - Fibromyalgia - IBS (irritable bowel syndrome) - Insomnia - Opioid abuse (HCC) - diabetes Prior PAST SURGICAL HISTORY: No past surgical history on file. FAMILY HISTORY: No family history on file. SOCIAL HISTORY: Social History Tobacco Use - Smoking status: Never Smoker - Smokeless tobacco: Not on file Substance Use Topics - Alcohol use: Not Currently - Drug use: Not on file COMPLETE REVIEW OF SYSTEMS: CONSTITUTION: Negative for pain, fatigue, weight loss, or appetite loss. EENT: Negative for mouth soreness, antibiotics use, epistaxis, visual problems, neck or facial swelling, fever/chills, bleeding gums, or hearing loss. CV: Negative for edema, calf swelling, palpitations, or chest pain. RESPIRATORY: Negative for cough, SOB, hemoptysis, or wheezing. GI: Negative for nausea/vomiting, heartburn, vomiting blood, dysphasia, diarrhea, blood in stool, constipation, early satiety, PICA, vegetarian, poor nutrition, abdominal fullness, or abdominal pain. NEUROLOGICAL: Negative for numbness/tingling, dizziness, gait disturbance, headache, speech disturbance, tremor, hemiparesis/sensory loss, or change in mental status. MUSCULOSKELETAL: Negative for joint pain, joint swelling, or proximal muscle weakness. SKIN: Negative for hair loss, bruising, nail changes, rash, itching, pallor, or jaundice. ENDO/URO: Negative for hot flashes, cold or heat intolerance, urinary frequency, urinary hesitancy, menorrhagia, or hematuria. PSYCH: Negative for anxiety, depression, or other. PHYSICAL EXAM: BP 127/70 Pulse 108 Temp 36.5 ?C (97.7 ?F) (Temporal) Resp 16 Wt 93.4 kg (205 lb 12.8 oz) SpO2 99% GENERAL EXAM: Well developed/well nourished; in no acute distress. SKIN: Negative for lesions, rashes, or ulcers on the upper and lower extremities and face. Negative for palpations/nodules, purpura, and ecchymosis. EENT: Negative for conjunctiva, mucosal pallor, JVD, LAP, thyromegaly, and glossitis. Supple AND PERRL. EXTREMITIES: Negative for cyanosis, clubbing, and crepitus. LUNGS: Negative to auscultation, respiratory effort, and percussion. CARDIOVASCULAR: Regular rate. Negative for murmurs/S3S4/abnormal sounds, edema, and carotid bruits. ABDOMEN: 8 months gestational abdomen. No tenderness or masses. RECTAL: Not done PSYCHIATRIC: Negative for mood/affect changes, r (more content not included)... Normal [facility] Comp Metabolic Panelon 11-08 Albumin [Mass/Vol] 3.6 g/dL Low 3.9-4.9 [facility] Comment on above: Performed By: #### S ERFOL, IRON, B12, FERR #### [place] [address] [place] [address] ALP [Catalytic activity/Vol] 79 U/L Normal 34-123 [facility] Comment on above: Performed By: #### S ERFOL, IRON, B12, FERR #### [place] [address] [place] [address] ALT [Catalytic activity/Vol] 8 U/L Normal 7-38 [facility] Comment on above: Performed By: #### S ERFOL, IRON, B12, FERR #### [place] [address] [place] [address] Anion gap [Moles/Vol] 9 mmol/L Normal 9-18 [facility] Comment on above: Performed By: #### S ERFOL, IRON, B12, FERR #### [place] [address] [place] [address] AST [Catalytic activity/Vol] 13 U/L Normal 13-35 [facility] Comment on above: Performed By: #### S ERFOL, IRON, B12, FERR #### [facility] [address] [place] [address] Bilirubin [Mass/Vol] 0.2 mg/dL Normal 0.2-1.3 [facility] Comment on above: Performed By: #### S ERFOL, IRON, B12, FERR #### [place] [address] Calcium [Mass/Vol] 9.3 mg/dL Normal 8.5-10.2 [facility] Comment on above: Performed By: #### S ERFOL, IRON, B12, FERR #### [place] [phone] Chloride [Moles/Vol] 102 mmol/L Normal 97-105 [facility] Comment on above: Performed By: #### S ERFOL, IRON, B12, FERR #### [place] [phone] CO2 [Moles/Vol] 23 mmol/L Normal 22-30 [facility] Comment on above: Performed By: #### S ERFOL, IRON, B12, FERR #### [place] [phone] Creatinine [Mass/Vol] 0.55 mg/dL Low 0.58-0.96 [facility] Comment on above: Performed By: #### S ERFOL, IRON, B12, FERR #### [place] [address] eGFR- Amer. >60 Normal [facility] Comment on above: Performed By: #### S ERFOL, IRON, B12, FERR #### [place] [address] eGFR-All Other Races >60 Normal [facility] Comment on above: Result Comment: eGFR (Estimated GFR) Units of measure: mL/min/1.73 meters squared eGFR is derived from the reexpressed MDRD Study equation using the following parameters: serum creatinine, age, gender and race. The creatinine assay has been calibrated to be traceable to IDMS. An eGFR <60 mL/min/1.73m2 for >3 months is consistent with chronic kidney disease. Refer to KDOQI guidelines for clinical interpretation. In patients with unstable renal function, e.g. those with acute kidney injury, the eGFR may not accurately reflect actual GFR. Note: On 11/12/2021, the eGFR calculation will be updated to the NKF-ASN Task Force recommended 2020 CKD-EPI creatinine equation which does not include a race variable. For more information or to access a 2020 CKD-EPI calculator, visit the National Kidney Foundation website at kidney.org/professionals/kdoqi/gfr_calculator. Performed By: #### S ERFOL, IRON, B12, FERR #### [facility] [address] [place], [place] [address] Glucose [Mass/Vol] 96 mg/dL Normal 74-99 [facility] Comment on above: Result Comment: The [place] Diabetes Association (ADA) provides guidance for cutoff values for fasting glucose and random glucose. The ADA defines fasting as no caloric intake for at least 8 hours. Fasting plasma glucose results between 100 to 125 mg/dL indicate increased risk for diabetes (prediabetes). Fasting plasma glucose results greater than or equal to 126 mg/dL meet the criteria for diagnosis of diabetes. In the absence of unequivocal hyperglycemia, results should be confirmed by repeat testing. In a patient with classic symptoms of hyperglycemia or hyperglycemic crisis, random plasma glucose results greater than or equal to 200 mg/dL meet the criteria for diagnosis of diabetes. Reference: Standards of Medical Care in Diabetes 2016, [place] [employer] Association. Diabetes Care. 2016.39(Suppl 1). Performed By: #### S ERFOL, IRON, B12, FERR #### [facility] [address] [place], [place] [address] Potassium [Moles/Vol] 3.3 mmol/L Low 3.7-5.1 [facility] Comment on above: Performed By: #### S ERFOL, IRON, B12, FERR #### [place] [address] [place], [place] [address] Protein [Mass/Vol] 6.3 g/dL Normal 6.3-8.0 [facility] Comment on above: Performed By: #### S ERFOL, IRON, B12, FERR #### [address] [address] Sodium [Moles/Vol] 134 mmol/L Low 136-144 [facility] Comment on above: Performed By: #### S ERFOL, IRON, B12, FERR #### [place] [address] Urea nitrogen [Mass/Vol] 4 mg/dL Low 7-21 [facility] Comment on above: Performed By: #### S ERFOL, IRON, B12, FERR #### [address] [address] Ferritinon 11-08-2021 Ferritin [Mass/Vol] 203.0 ng/mL Normal 14.7-205.1 [facility] Comment on above: Performed By: #### S ERFOL, IRON, B12, FERR #### [address] [address] Folate, Serumon 11-08-2021 Folate [Mass/Vol] 8.5 ng/mL Normal >4.7 [facility] Comment on above: Performed By: #### S ERFOL, IRON, B12, FERR #### [address] [address] Iron and TIBCon 11-08-2021 Iron [Mass/Vol] 93 ug/dL Normal 41-186 [facility] Comment on above: Performed By: #### S ERFOL, IRON, B12, FERR #### [address] [address] TIBC 407 ug/dL High 232-386 [facility] Comment on above: Performed By: #### S ERFOL, IRON, B12, FERR #### [facility] [address] [place], [place] [address] Transferrin Saturatn 23 % Normal 15-57 [facility] Comment on above: Performed By: #### S ERFOL, IRON, B12, FERR #### [facility] [address] [place], [place] [address] Remote CBCDIF (for [facility] use o nly)on 11-08-2021 Abs Baso <0.03 Normal <0.11 [facility] Abs Mills 0.57 k/uL Normal <0.87 [facility] Abs Neut 4.67 k/uL Normal 1.45-7.50 [facility] Absolute nRBC <0.01 Normal <0.01 [facility] Basophils/100 WBC (Bld) 0.3 % Normal [facility] DTYPE Auto Diff Normal [facility] Eosinophils (Bld) [#/Vol] 0.05 10*3/uL Normal <0.46 [facility] Eosinophils/100 WBC (Bld) 0.8 % Normal [facility] Erythrocyte distribution width (RBC) [Ratio] 29.9 % High 11.5-15.0 [facility] Hematocrit (Bld) [Volume fraction] 32.6 % Low 36.0-46.0 [facility] Hemoglobin (Bld) [Mass/Vol] 10.1 g/dL Low 11.5-15.5 [facility] Lymphocytes (Bld) [#/Vol] 1.25 10*3/uL Normal 1.00-4.00 [facility] Lymphocytes/100 WBC (Bld) 19.1 % Normal [facility] MCH 25.1 pG Low 26.0-34.0 [facility] MCHC (RBC) [Mass/Vol] 31.0 g/dL Normal 30.5-36.0 [facility] MCV (RBC) [Entitic vol] 81.1 fL Normal 80.0-100.0 [facility] Monocytes/100 WBC (Bld) 8.7 % Normal [facility] Neutrophils/100 WBC (Bld) 71.1 % Normal [facility] NRBCs 0.0 /100 WBC Normal 0 [facility] Platelet mean volume (Bld) [Entitic vol] 10.3 fL Normal 9.0-12.7 [facility] Platelets (Bld) [#/Vol] 223 10*3/uL Normal 150-400 [facility] Comment on above: Result Comment: Resu lt checked and verified Sample checked for a clot. RBC (Bld) [#/Vol] 4.02 10*6/uL Normal 3.90-5.20 [facility] WBC (Bld) [#/Vol] 6.56 10*3/uL Normal 3.70-11.00 [facility] Reticulocyteon 11-08-2021 Abs Retic 0.140 M/uL High 0.0180-0.1000 [facility] Comment on above: Performed By: #### S ERFOL, IRON, B12, FERR #### [place] [address] Retic% 3.5 % High 0.4-2.0 [facility] Comment on above: Performed By: #### S ERFOL, IRON, B12, FERR #### [place] [address] Vitamin B12on 11-08-2021 Cobalamin (Vitamin B12) [Mass/Vol] 218 pg/mL Low 232-1245 [facility] Comment on above: Performed By: #### S ERFOL, IRON, B12, FERR #### [place] [address] HCV RNA,Quant,PCRon 04-27-20 20 HCV RNA,Quant,PCR Specimen Description .PLASMA Special Requests QUALITATIVE Direct Exam HCV RNA NOT DETECTED This test is a sensitive method for quantitating HCV RNA viral loads in plasma. It utilizes RT-PCR in the FDA approved Radha Ampliprep/Taqman 48 System. This test is intended for detecting and quantifying HCV RNA viral loads in the range of 15 IU/mL to 100,000,000 IU/mL (1.18 log IU/mL to 8.00 log IU/mL). Patients should have confirmed HCV infection prior to RNA quantification. This test has been developed to monitor disease progression and efficacy of anti-HCV drug therapy. This test has been optimized for HCV genotypes 1-6. Report Status FINAL 04/27/2020 Normal [facility] Comment on above: Performed By: #### H IVCMB, PHEP #### [address] [address] Follow Up Manager: Dom Fowler MD #### CP #### [facility] [address] [place] [address] [place] [phone] Follow Up Manager: Shakeel Graham MD [facility] 04-26-2020 Erythrocyte distribution width (RBC) [Ratio] 14.7 % High 11.8-14.4 [facility] Comment on above: Performed By: #### H IVCMB, PHEP #### [address] [address] Follow Up Manager: Dom Fowler MD #### CP #### [address] [place] [phone] Follow Up Manager: Shakeel Graham MD Hematocrit (Bld) [Volume fraction] 36.0 % Low 36.3-47.1 [facility] Comment on above: Performed By: #### H IVCMB, PHEP #### [address] [address] Follow Up Manager: Dom Fowler MD #### CP #### [facility] [address] [place] [address] [place] [phone] Follow Up Manager: Shakeel Graham MD Hemoglobin (Bld) [Mass/Vol] 10.9 g/dL Low 11.9-15.1 [facility] Comment on above: Performed By: #### H IVCMB, PHEP #### [address] [address] Follow Up Manager: Dom Fowler MD #### CP #### [address] [place], [place] [phone] Follow Up Manager: Shakeel Graham MD MCH (RBC) [Entitic mass] 26.2 pg Normal 25.2-33.5 [facility] Comment on above: Performed By: #### H IVCMB, PHEP #### [address] [phone] Follow Up Manager: Dom Fowler MD #### CP #### [address] [place] [phone] Follow Up Manager: Shakeel Graham MD MCHC (RBC) [Mass/Vol] 30.3 g/dL Normal 28.4-34.8 [facility] Comment on above: Performed By: #### H IVCMB, PHEP #### [address] [id number] Follow Up Manager: Dom Fowler MD #### CP #### [address] [place] [phone] Follow Up Manager: Shakeel Graham MD MCV (RBC) [Entitic vol] 86.5 fL Normal 82.6-102.9 [facility] Comment on above: Performed By: #### H IVCMB, PHEP #### [address] [address] Follow Up Manager: Dom Fowler MD #### CP #### [address] [place] [phone] Follow Up Manager: Shakeel Graham MD NRBC Automated 0.0 per 100 WBC Normal 0.0 [facility] Comment on above: Performed By: #### H IVCMB, PHEP #### [address] [phone] Follow Up Manager: Dom Fowler MD #### CP #### [address] [place], [place] [phone] Follow Up Manager: Shakeel Graham MD Platelet mean volume (Bld) [Entitic vol] 10.8 fL Normal 8.1-13.5 [facility] Comment on above: Performed By: #### H IVCMB, PHEP #### [address] [address] Follow Up Manager: Dom Fowler MD #### CP #### [address] [place] [phone] Follow Up Manager: Shakeel Graham MD Platelets (Bld) [#/Vol] 328 10*3/uL Normal 138-453 [facility] Comment on above: Performed By: #### H IVCMB, PHEP #### [address] [address] Follow Up Manager: Dom Fowler MD #### CP #### [address] [place] [phone] Follow Up Manager: Shakeel Graham MD RBC (Bld) [#/Vol] 4.16 10*6/uL Normal 3.95-5.11 [facility] Comment on above: Performed By: #### H IVCMB, PHEP #### [address] [address] Follow Up Manager: Dom Fowler MD #### CP #### [address] [place] [phone] Follow Up Manager: Shakeel Graham MD WBC (Bld) [#/Vol] 5.7 10*3/uL Normal 3.5-11.3 [facility] Comment on above: Performed By: #### H IVCMB, PHEP #### [address] [address] Follow Up Manager: Dom Fowler MD #### CP #### [address] [place] [address] Follow Up Manager: Shakeel Graham MD Erythrocyte distribution width (RBC) [Ratio] 14.7 % High 11.8 - 14.4 % [place], [place] Hematocrit (Bld) [Volume fraction] 36.0 % Low 36.3 - 47.1 % [place] Hemoglobin (Bld) [Mass/Vol] 10.9 g/dL Low 11.9 - 15.1 g/dL [place] Interpretation and review of laboratory results Abnormal [place] MCH (RBC) [Entitic mass] 26.2 pg 25.2 - 33.5 pg [place] MCHC (RBC) [Mass/Vol] 30.3 g/dL 28.4 - 34.8 g/dL [place] MCV (RBC) [Entitic vol] 86.5 fL 82.6 - 102.9 fL [place] Platelet mean volume (Bld) [Entitic vol] 10.8 fL 8.1 - 13.5 fL [place] Platelets (Bld) [#/Vol] 328 10*3/uL [place] RBC (Bld) [#/Vol] 4.16 10*6/uL 3.95 - 5.1 1 m/uL [place] WBC (Bld) [#/Vol] 0.0 10*3/uL 0.0 per 100 WBC M [place] WBC (Bld) [#/Vol] 5.7 10*3/uL [place], [place] Comp Metabolic Profon 2019 Bilirubin Ql (U) <0.10 Low 0.3-1.2 [facility] Comment on above: Performed By: #### H IVCMB, PHEP #### [facility] [address] [place] [address] Follow Up Manager: Dom Fowler MD #### CP #### [facility] [address] [place] [address] Follow Up Manager: Shakeel Graham MD (cont.) Normal [facility] Comment on above: Result Comment: Aver age GFR for 20-29 years old: 116 mL/min/1.73sq m Chronic Kidney Disease: <60 mL/min/1.73sq m Kidney failure: <15 mL/min/1.73sq m eGFR calculated using average adult body mass. Additional eGFR calculator available at: http://www.[employer]/multiple_crcl_2012.htm Performed By: #### H IVCMB, PHEP #### [facility] [address] [place] [address] Follow Up Manager: Dom Fowler MD #### CP #### [facility] [address] [place] [address] Follow Up Manager: Shakeel Graham MD Albumin [Mass/Vol] 3.4 g/dL Low 3.5-5.2 [facility] Comment on above: Performed By: #### H IVCMB, PHEP #### [address] [address] Follow Up Manager: Dom Fowler MD #### CP #### [facility] [address] [place] [address] Follow Up Manager: Shakeel Graham MD Albumin/Globulin [Mass ratio] 1.5 {ratio} Normal 1.0-2.5 [facility] Comment on above: Performed By: #### H IVCMB, PHEP #### [address] [address] Follow Up Manager: Dom Fowler MD #### CP #### [facility] [address] [place] [address] Follow Up Manager: Shakeel Graham MD Alkaline Phos 40 U/L Normal 35-104 [facility] Comment on above: Performed By: #### H IVCMB, PHEP #### [facility] [address] [place] [address] Follow Up Manager: Dom Fowler MD #### CP #### [facility] [address] [place] [address] Follow Up Manager: Shakeel Graham MD ALT [Catalytic activity/Vol] 12 U/L Normal 5-33 [facility] Comment on above: Performed By: #### H IVCMB, PHEP #### [facility] [address] [place] [address] Follow Up Manager: Dom Fowler MD #### CP #### [facility] [address] [place] [address] Follow Up Manager: Shakeel Graham MD Anion gap [Moles/Vol] 9 mmol/L Normal 9-17 [facility] Comment on above: Performed By: #### H IVCMB, PHEP #### [address] [address] Follow Up Manager: Dom Fowler MD #### CP #### [facility] [address] [place] [address] [place] [address] Follow Up Manager: Shakeel Graham MD AST [Catalytic activity/Vol] 12 U/L Normal <32 [facility] Comment on above: Performed By: #### H IVCMB, PHEP #### [address] [address] Follow Up Manager: Dom Fowler MD #### CP #### [facility] [address] [place] [address] [place] [address] Follow Up Manager: Shakeel Graham MD BUN/CRE Ratio 26 High 9-20 [facility] Comment on above: Performed By: #### H IVCMB, PHEP #### [address] [address] Follow Up Manager: Dom Fowler MD #### CP #### [facility] [address] [place], [place] [phone] Follow Up Manager: Shakeel Graham MD Calcium [Mass/Vol] 9.3 mg/dL Normal 8.6-10.4 [facility] Comment on above: Performed By: #### H IVCMB, PHEP #### [address] [address] Follow Up Manager: Dom Fowler MD #### CP #### [facility] [address] [place] [id number] Follow Up Manager: Shakeel Graham MD Chloride [Moles/Vol] 109 mmol/L High 98-107 [facility] Comment on above: Performed By: #### H IVCMB, PHEP #### [address] [address] Follow Up Manager: Dom Fowler MD #### CP #### [facility] [address] [place] [id number] Follow Up Manager: Shakeel Graham MD CO2 [Moles/Vol] 26 mmol/L Normal 20-31 [facility] Comment on above: Performed By: #### H IVCMB, PHEP #### [address] [address] Follow Up Manager: Dom Fowler MD #### CP #### [facility] [address] [place] [address] Dr. [place] [phone] Follow Up Manager: Shakeel Graham MD Creatinine [Mass/Vol] 0.57 mg/dL Normal 0.50-0.90 [facility] Comment on above: Performed By: #### H IVCMB, PHEP #### [address] [address] Follow Up Manager: Dom Fowler MD #### CP #### [facility] [address] [place], [place] [id number] Follow Up Manager: Shakeel Graham MD GFR, Amer >60 Normal >60 [facility] Comment on above: Performed By: #### H IVCMB, PHEP #### [address] [address] Follow Up Manager: Dom Fowler MD #### CP #### [facility] [address] [place], [place] [id number] Follow Up Manager: Shakeel Graham MD GFR,non Amer >60 Normal >60 [facility] Comment on above: Performed By: #### H IVCMB, PHEP #### [address] [address] Follow Up Manager: Dom Fowler MD #### CP #### [facility] [address] [place] [address] Dr. [place], [place] [id number] Follow Up Manager: Shakeel Graham MD Glucose [Mass/Vol] 92 mg/dL Normal 70-99 [facility] Comment on above: Performed By: #### H IVCMB, PHEP #### [address] [address] Follow Up Manager: Dom Fowler MD #### CP #### [facility] [address] [place] [address] Dr. [place], [place] [phone] Follow Up Manager: Shakeel Graham MD Potassium [Moles/Vol] 3.8 mmol/L Normal 3.7-5.3 [facility] Comment on above: Performed By: #### H IVCMB, PHEP #### [address] [address] Follow Up Manager: Dom Fowler MD #### CP #### [facility] [address] [place], [place] [id number] Follow Up Manager: Shakeel Graham MD Protein [Mass/Vol] 5.7 g/dL Low 6.4-8.3 [facility] Comment on above: Performed By: #### H IVCMB, PHEP #### [address] [address] Follow Up Manager: Dom Fowler MD #### CP #### [facility] [address] [place] [address] Follow Up Manager: Shakeel Graham MD Sodium [Moles/Vol] 144 mmol/L Normal 135-144 [facility] Comment on above: Performed By: #### H IVCMB, PHEP #### [address] [address] Follow Up Manager: Dom Fowler MD #### CP #### [facility] [address] [place] [address] Follow Up Manager: Shakeel Graham MD Staging: Normal [facility] Comment on above: Result Comment: Stag e 1: Some kidney damage normal GFR Stage 2: Mild kidney damage GFR 60-89 Stage 3: Moderate kidney damage GFR 30-59 Stage 4: Severe kidney damage GFR 15-29 Stage 5: Severe kidney damage GFR <15 ESRD - chronic treatment by dialysis or transplant Performed By: #### H IVCMB, PHEP #### [address] [address] Follow Up Manager: Dom Fowler MD #### CP #### [address] [place] [address] Follow Up Manager: Shakeel Graham MD Urea nitrogen [Mass/Vol] 15 mg/dL Normal 6-20 [facility] Comment on above: Performed By: #### H IVCMB, PHEP #### [address] [address] Follow Up Manager: Dom Fowler MD #### CP #### [address] [place] [address] Follow Up Manager: Shakeel Graham MD [facility] Metabolic Pane [facility] 04-26-2020 Albumin [Mass/Vol] 3.4 g/dL Low 3.5 - 5.2 g/dL [place], [place] Albumin/Globulin [Mass ratio] 1.5 {ratio} [place], [place] ALP [Catalytic activity/Vol] 40 U/L 35 - 104 U/L [place] ALT [Catalytic activity/Vol] 12 U/L 5 - 33 U/L [place] Anion gap [Moles/Vol] 9 mmol/L 9 - 17 mmol/L [place] AST [Catalytic activity/Vol] 12 U/L <32 [place] Bilirubin Ql (U) <0.10 Low 0.3 - 1.2 mg/dL [place] Bun/Cre Ratio 26 High [place], [place] Calcium [Mass/Vol] 9.3 mg/dL 8.6 - 10. 4 mg/dL [place] Chloride [Moles/Vol] 109 mmol/L High 98 - 107 mmol/L [place] CO2 [Moles/Vol] 26 mmol/L 20 - 31 mmol/L [place] Creatinine [Mass/Vol] 0.57 mg/dL 0.5 - 0.9 mg/dL [place] GFR >60 >60 mL/min [place] GFR Non- >60 >60 mL/min [place] Glucose [Mass/Vol] 92 mg/dL 70 - 99 mg/dL [place] Interpretation and review of laboratory results Abnormal [place] Potassium [Moles/Vol] 3.8 mmol/L 3.7 - 5.3 mmol/L [place] Protein [Mass/Vol] 5.7 g/dL Low 6.4 - 8.3 g/dL [place] Sodium [Moles/Vol] 144 mmol/L 135 - 144 mmol/L [place] Urea nitrogen [Mass/Vol] 15 mg/dL 6 - 20 mg/dL [place] HCG Qualitative, Serumon hCG Qual Negative NEGATIVE [place] Comment on above: Specimens with hCG l evels near the threshold of the test (25 mIU/mL) may give a negative or indeterminate result. In such cases, another test should be performed with a new specimen in 48-72 hours. If early is suspected clinically in this setting, correlation with quantitative serum b-hCG level is suggested. [facility] has confirmed the use of plasma for this test. This has not been cleared or approved by the U.S. Food and Drug Administration. The FDA has determined that such clearance is not necessary. HCG Screen, Bloodon 04-26-20 20 HCG Qn Negative Normal NEG [facility] Comment on above: Result Comment: Spec imens with hCG levels near the threshold of the test (25 mIU/mL) may give a negative or indeterminate result. In such cases, another test should be performed with a new specimen in 48-72 hours. If early is suspected clinically in this setting, correlation with quantitative serum b-hCG level is suggested. [employer] has confirmed the use of plasma for this test. This has not been cleared or approved by the U.S. Food and Drug Administration. The FDA has determined that such clearance is not necessary. Performed By: #### H IVCMB, PHEP #### [facility] [address] [place], [place] [id number] Follow Up Manager: Dom Fowler MD #### CP #### [facility] [address] [place] [address] [place] [address] Follow Up Manager: Shakeel Graham MD HIV Ag/Abon 04-26-2020 HIV Ag/Ab NONREACTIVE Normal NR [facility] Comment on above: Result Comment: No l aboratory evidence of HIV infection. If acute HIV infection is suspected, consider testing for HIV-1 RNA. Performed By: #### H IVCMB, PHEP #### [facility] [address] [place] [address] Follow Up Manager: Dom Fowler MD #### CP #### [facility] [address] [place] [address] Follow Up Manager: Shakeel Graham MD HIV Screenon 04-26-2020 HIV Ag/Ab NONREACTIVE NONREACTIVE [facility], [place] Comment on above: No laboratory eviden ce of HIV infection. If acute HIV infection is suspected, consider testing for HIV-1 RNA. Hepatitis Acute [facility] 04-26 Hep A Ab,IgM NONREACTIVE Normal NR [facility] Comment on above: Performed By: #### H IVCMB, PHEP #### [facility] [address] [place] [address] Follow Up Manager: Dom Fowler MD #### CP #### [facility] [address] [place] [address] Dr. [place], [place] [id number] Follow Up Manager: Shakeel Graham MD Hep B Core Ab,IgM NONREACTIVE Normal [facility] Comment on above: Performed By: #### H IVCMB, PHEP #### [address] [address] Follow Up Manager: Dom Fowler MD #### CP #### [address] [place], [place] [phone] Follow Up Manager: Shakeel Graham MD Hep B Surf Ag NONREACTIVE Normal [facility] Comment on above: Performed By: #### H IVCMB, PHEP #### [address] [address] Follow Up Manager: Dom Fowler MD #### CP #### [address] [place] [address] Follow Up Manager: Shakeel Graham MD Hep C Ab REACTIVE Abnormal [facility] Comment on above: Result Comment: The hepatitis C procedure used in our laboratory is a Chemiluminescent test specific for three recombinant HCV antigens. A negative anti-HCV result indicates that the antibodies to hepatitis C virus are not present at this time. Individuals with reactive anti-HCV should be considered infected and infectious until proven otherwise. Confirmation of all equivocal or reactive results is recommended by ordering HCV RNA by PCR. Results reported to the appropriate Health Department Performed By: #### H IVCMB, PHEP #### [facility] [address] [place] [address] Follow Up Manager: Dom Fowler MD #### CP #### [facility] [address] [place] [address] Follow Up Manager: Shakeel Graham MD Hepatitis Panel, Acuteon HAV IgM IA Qn (S) NONREACTIVE NONREACTIVE [place] Hep B Core Ab, IgM NONREACTIVE NONREACTIVE [place] Hepatitis B Surface Ag NONREACTIVE NONREACTIVE [place] Hepatitis C Ab REACTIVE Abnormal NONREACTIVE [place] Comment on above: The hepatitis C procedure used in our laboratory is a Chemiluminescent test specific for three recombinant HCV antigens. A negative anti-HCV result indicates that the antibodies to hepatitis C virus are not present at this time. Individuals with reactive anti-HCV should be considered infected and infectious until proven otherwise. Confirmation of all equivocal or reactive results is recommended by ordering HCV RNA by PCR. Results reported to the appropriate Health Department Interpretation and review of laboratory results Abnormal [place] Metabolic Panelon 04-26-2020 GFR/1.73 sq M predicted among non-blacks MDRD (S/P/Bld) [Vol rate/Area] [place] Comment on above: Stage 1: Some kidney damage normal GFR Stage 2: Mild kidney damage GFR 60-89 Stage 3: Moderate kidney damage GFR 30-59 Stage 4: Severe kidney damage GFR 15-29 Stage 5: Severe kidney damage GFR <15 ESRD - chronic treatment by dialysis or transplant Average GFR for 20-2 9 years old: 116 mL/min/1.73sq m Chronic Kidney Disease: <60 mL/min/1.73sq m Kidney failure: <15 mL/min/1.73sq m eGFR calculated using average adult body mass. Additional eGFR calculator available at: http://www.[employer].Comr.se/multiple_crcl_2012.htm Microscopic Urinalysison Amorphous, UA NOT REPORTED None [place], [place] Bacteria, UA NOT REPORTED None [place], [place] Casts UA NOT REPORTED /LPF [place], [place] Crystals, UA 5 TO 10 Abnormal None /HPF [place] Crystals, UA CALCIUM OXALATE Abnormal None /HPF [place], [place] Epithelial Cells UA 0 TO 2 [place] Interpretation and review of laboratory results Abnormal [place] Mucus, UA TRACE Abnormal None [place] Other Observations UA NOT REPORTED NOT REQ. [place] RBC (U) [#/Vol] None [facility], [place] Renal Epithelial, UA NOT REPORTED 0 /HPF [place] Trichomonas, UA NOT REPORTED None [facility] [place] WBC, UA 0 TO 2 [place] Yeast, UA NOT REPORTED None [facility], [place] - [place] UA w/Reflex Cultureon 2019 Acetoacetic Acid,Ur Negative Normal NEG [facility] Comment on above: Performed By: #### H IVCMB, PHEP #### [address] [address] Follow Up Manager: Dom Fowler MD #### CP #### [facility] [address] [place] [address] [place] [address] Follow Up Manager: Shakeel Graham MD Bilirubin, SemiQt,Ur Negative Normal [facility] Comment on above: Performed By: #### H IVCMB, PHEP #### [address] [address] Follow Up Manager: Dom Fowler MD #### CP #### [address] [place] [address] Follow Up Manager: Shakeel Graham MD Color (U) YELLOW Normal [facility] Comment on above: Performed By: #### H IVCMB, PHEP #### [address] [address] Follow Up Manager: Dom Fowler MD #### CP #### [facility] [address] [place] [address] [place] [address] Follow Up Manager: Shakeel Graham MD Glucose Ql (U) Negative Normal NEG [facility] Comment on above: Performed By: #### H IVCMB, PHEP #### [address] [address] Follow Up Manager: Dom Fowler MD #### CP #### [address] [place], [place] [phone] Follow Up Manager: Shakeel Graham MD Hemoglobin, Ur Negative Normal NEG [facility] Comment on above: Performed By: #### H IVCMB, PHEP #### [address] [address] Follow Up Manager: Dom Fowler MD #### CP #### [address] [place] [phone] Follow Up Manager: Shakeel Graham MD Leukocyte esterase Test strip Ql (U) Negative Normal NEG [facility] Comment on above: Performed By: #### H IVCMB, PHEP #### [address] [address] Follow Up Manager: Dom Fowler MD #### CP #### [address] [place] 1494283 Follow Up Manager: Shakeel Graham MD Nitrite,Ur Negative Normal NEG [facility] Comment on above: Performed By: #### H IVCMB, PHEP #### [address] [address] Follow Up Manager: Dom Fowler MD #### CP #### [address] [place] [phone] Follow Up Manager: Shakeel Graham MD pH (U) 6.5 [pH] Normal 5.0-9.0 [facility] Comment on above: Performed By: #### H IVCMB, PHEP #### [address] [address] Follow Up Manager: Dom Fowler MD #### CP #### [address] [place] [address] Follow Up Manager: Shakeel Graham MD Protein Ql (U) Negative Normal NEG [facility] Comment on above: Performed By: #### H IVCMB, PHEP #### [facility] [address] [place] [address] Follow Up Manager: Dom Fowler MD #### CP #### [address] [place] [address] Follow Up Manager: Shakeel Graham MD Specific gravity (U) [Rel density] 1.025 High 1.010-1.020 [facility] Comment on above: Performed By: #### H IVCMB, PHEP #### [address] [address] Follow Up Manager: Dom Fowler MD #### CP #### [address] [place] [address] Follow Up Manager: Shakeel Graham MD Turbidity CLEAR Normal CLEAR [facility] Comment on above: Performed By: #### H IVCMB, PHEP #### [address] [address] Follow Up Manager: Dom Fowler MD #### CP #### [address] [place] [address] Follow Up Manager: Shakeel Graham MD Urobilinogen,Ur Normal Normal NORM [facility] Comment on above: Performed By: #### H IVCMB, PHEP #### [address] [address] Follow Up Manager: Dom Fowler MD #### CP #### [address] [place] [address] Follow Up Manager: Shakeel Graham MD Comment NOT REPORTED Normal [facility] Comment on above: Performed By: #### H IVCMB, PHEP #### [facility] [address] [place] [address] Follow Up Manager: Dom Fowler MD #### CP #### [address] [place] [address] Follow Up Manager: Shakeel Graham MD Urinalysis Reflex to Culture on 04-26-2020 Bilirubin Urine Negative NEGATIVE [facility], [place] Color, UA YELLOW YELLOW [place] Glucose, Ur Negative NEGATIVE [place] Interpretation and review of laboratory results Abnormal [place] Ketones Ql (U) Negative NEGATIVE [place] Leukocyte esterase Test strip Ql (U) Negative NEGATIVE [facility], [place] Nitrite, Urine Negative NEGATIVE [facility], [place] pH, UA 6.5 [place] Protein (U) [Mass/Vol] Negative NEGATIVE [place] Specific [place], UA 1.025 High [place] Turbidity UA CLEAR CLEAR [place] Urinalysis Comments NOT REPORTED [facility], [place] Urine Hgb Negative NEGATIVE [place] Urobilinogen, Urine Normal Normal [place] Urinalysis,Microon 0 ----- Normal [facility] Comment on above: Performed By: #### H IVCMB, PHEP #### [place] [address] [place] [address] Follow Up Manager: Dom Fowler MD #### CP #### [address] [place] [address] Follow Up Manager: Shakeel Graham MD Crystals LM Nom (Urine sed) CALCIUM OXALATE Abnormal NONE [facility] Comment on above: Result Comment: 5 TO 10 Performed By: #### H IVCMB, PHEP #### [facility] [address] [place] [address] Follow Up Manager: Dom Fwoler MD #### CP #### [address] [place] [address] Follow Up Manager: Shakeel Graham MD Epithelial cells LM.HPF (Urine sed) [#/Area] 0 TO 2 Normal 0-25 [facility] Comment on above: Performed By: #### H IVCMB, PHEP #### [facility] [address] [place] [address] Follow Up Manager: Dom Fowler MD #### CP #### [address] [place] [phone] Follow Up Manager: Shakeel Graham MD Mucus Strands TRACE Abnormal [facility] Comment on above: Performed By: #### H IVCMB, PHEP #### [address] [address] Follow Up Manager: Dom Fowler MD #### CP #### [address] [place] [phone] ( Follow Up Manager: Shakeel Graham MD RBC (U) [#/Vol] None Normal 0-2 [facility] Comment on above: Performed By: #### H IVCMB, PHEP #### [facility] [address] [place] [address] Follow Up Manager: Dom Fowler MD #### CP #### [address] [place] [phone] Follow Up Manager: Shakeel Graham MD WBC (U) [#/Vol] 0 TO 2 Normal 0-5 [facility] Comment on above: Performed By: #### H IVCMB, PHEP #### [facility] [address] [place] [address] Follow Up Manager: Dom Fowler MD #### CP #### [address] [place] [address] Follow Up Manager: Shakeel Graham MD Amorphous sediment LM Ql (Urine sed) NOT REPORTED Normal [facility] Comment on above: Performed By: #### H IVCMB, PHEP #### [facility] [address] [place] [address] Follow Up Manager: Dom Fowler MD #### CP #### [facility] [address] [place] [address] Follow Up Manager: Shakeel Graham MD Bacteria LM.HPF (Urine sed) [#/Area] NOT REPORTED Normal NONE [facility] Comment on above: Performed By: #### H IVCMB, PHEP #### [address] [address] Follow Up Manager: Dom Fowler MD #### CP #### [address] [place] [address] Follow Up Manager: Shakeel Graham MD Casts LM.LPF (Urine sed) [#/Area] NOT REPORTED Normal [facility] Comment on above: Performed By: #### H IVCMB, PHEP #### [address] [address] Follow Up Manager: Dom Fowler MD #### CP #### [address] [place] [address] Follow Up Manager: Shakeel Graham MD Epithelial, Renal NOT REPORTED Normal 0 [facility] Comment on above: Performed By: #### H IVCMB, PHEP #### [address] [address] Follow Up Manager: Dom Fowler MD #### CP #### [facility] [address] [place] [address] [place] [address] Follow Up Manager: Shakeel Graham MD Other Observations NOT REPORTED Normal NREQ [facility] Comment on above: Performed By: #### H IVCMB, PHEP #### [address] [address] Follow Up Manager: Dom Folwer MD #### CP #### [facility] [address] [place] [phone] Follow Up Manager: Shakeel Graham MD Trichomonas NOT REPORTED Normal NONE [facility] Comment on above: Performed By: #### H IVCMB, PHEP #### [place] [address] [place], [place] [phone] Follow Up Manager: Dom Fowler MD #### CP #### [facility] [address] [place] [phone] Follow Up Manager: Shakeel Graham MD Yeast LM Ql (Urine sed) NOT REPORTED Normal NONE [facility] Comment on above: Performed By: #### H IVCMB, PHEP #### [facility] [address] [place], [place] [phone] Follow Up Manager: Dom Fowler MD #### CP #### [facility] [address] [place] [address] [place] [address] Follow Up Manager: Shakeel Graham MD ED Clinical Summaryon 2019 ED Clinical Summary [address] [address] ED Clinical Summary Person Information Name: Kathryn [facility] Age: 25 Years : 1995 Sex: Female PCP: Marital Status: Single Phone: Race: White Ethnicity: Not or Language: Armenian Visit Reason: Drug withdrawal; Drug withdrawal Acuity: 3 Enc Type: Emergency Med Service: Emergency Medicine Arrival: 03/16/2020 20:10:45 Discharge: 03/17/2020 02:12:00 LOS: 000 06:02 Checkin: 03/16/2020 20:10:45 Checkout: 03/17/2020 02:12:00 Dispo Type: Home or Self Care Address: [address] [place] [id number] Provider Notes: Diagnosis: 1:Affective disorder; 2:Drug usage Problems No Problems Documented Smoking Status: Smoking Status Never (less than 100 in lifetime) Functional Status: Sensory Deficits: History of Falls: Mobility Assistance Prior to Admission: ADLs: Current Level of Assistance for Self-Care/Mobility: Cognitive Status: Allergies No Known Medication Allergies Laboratory or Other Results This Visit (last charted value for your 03/16/2020 visit) Hematology 03/16/2020 8:39 PM WBC: 12.9 x10 RBC: 4.55 x10 Neutro Auto: 77.3 % -- Normal range between ( 47.2 and 70.8 ) Lymph Auto: 10.8 % -- Normal range between ( 27.2 and 40.8 ) Mills Auto: 11.4 % -- Normal range between ( 3.7 and 11.9 ) Eos Auto: 0.1 % -- Normal range between ( 0.0 and 5.4 ) Basophil Auto: 0.4 % -- Normal range between ( 0.0 and 1.5 ) Baso Absolute: 0.0 x10 MCV: 82.4 fL -- Normal range between ( 80.0 and 100.0 ) MCHC: 33.2 % -- Normal range between ( 31.0 and 37.0 ) Lymph Absolute: 1.4 x10 Hct: 37.5 % -- Normal range between ( 36.0 and 46.0 ) Mills Absolute: 1.5 x10 MCH: 27.4 pg -- Normal range between ( 27.0 and 35.0 ) Neutro Absolute: 10.0 x10 Hgb: 12.5 g/dL -- Normal range between ( 12.0 and 16.0 ) Mean Platelet Volume: 9.4 fL -- Normal range between ( 6.7 and 10.6 ) Platelet: 307 x10 Eos Absolute: 0.0 x10 RDW: 15.9 % -- Normal range between ( 11.6 and 14.8 ) Urinalysis 03/16/2020 8:39 PM UA Color: Terri UA Urobilinogen: 0.2 mg/dL UA Bili: Small UA Ketones: 20 mg/dL UA Leukocyte Esterase: Trace UA Nitrite: Negative UA Glucose: Negative mg/dL UA Protein: 100 mg/dL UA Blood: Small UA Spec Grav: 1.025 -- Normal range between ( 1.003 and 1.035 ) UA pH: 5.0 UA Clarity: Cloudy UA Source: Clean Catch UA Mucus: Present /LPF UA [place]yline Cast Qual: >20 /LPF UA WBC Quant: 7 /HPF -- Normal range between ( 0 and 5 ) UA RBC Quant: 12 /HPF -- Normal range between ( 0 and 5 ) UA Squepi Cells Quant: 6 /HPF -- Normal range between ( 0 and 29 ) Chemistry 03/17/2020 0:00 AM Beta hCG Qnt: 1.7 mIU/mL -- Normal range between ( 0.0 and 4.9 ) 03/16/2020 8:39 PM Creatinine Lvl: 1.47 mg/dL -- Normal range between ( 0.44 and 1.03 ) BUN: 25 mg/dL -- Normal range between ( 8 and 26 ) Glucose Lvl: 85 mg/dL -- Normal range between ( 70 and 99 ) Potassium Lvl: 3.7 mmol/L -- Normal range between ( 3.4 and 4.8 ) AST: 31 IU/L -- Normal range between ( 15 and 41 ) ALT: 19 IU/L -- Normal range between ( 14 and 54 ) Sodium Lvl: 137 mmol/L -- Normal range between ( 133 and 142 ) Calcium Lvl: 10.2 mg/dL -- Normal range between ( 8.5 and 10.3 ) Albumin Lvl: 5.2 g/dL -- Normal range between ( 3.2 and 4.9 ) Total Protein: 8.7 g/dL -- Normal range between ( 6.5 and 8.1 ) Bili Total: 1.4 mg/dL -- Normal range between ( 0.3 and 1.2 ) Alk Phos: 47 IU/L -- Normal range between ( 32 and 91 ) Chloride: 100 mmol/L -- Normal range between ( 98 and 110 ) CO2: 19 mmol/L -- Normal range between ( 22 and 32 ) Anion Gap: 22 -- Normal range between ( 7 and 17 ) eGFR Non-AA: 43 mL/min/1.73m? eGFR AA: 52 mL/min/1.73m? BUN Crea Ratio: 17.0 -- Normal range between ( 10.0 and 20.0 ) Urine Preg: Positive AG Ratio: 1.5 -- Normal range between ( 1.1 and 2.2 ) Creatine Phosphokinase: 439 IU/L -- Normal range between ( 38 and 234 ) Ur Creatinine Tox Scrn: >400.0 mg/dL Toxicology 03/16/2020 8:39 PM Ur PCP Scrn: Negative ng/mL Ur Opiate Scrn: Negative ng/mL Ur Methadone Scn: Negative ng/mL Ur Cannab Scrn: Negative ng/mL Ur Amph Scrn: Positive ng/mL Ur Benzodia Scrn: Negative ng/mL Ur Anastasia Scrn: Negative ng/mL Ur Cocaine Scrn: Negative ng/mL Ur Oxy Screen: Negative ng/mL Ethanol, Plasma: <10 mg/dL Measurements: Height: Weight: 66.3 kg Blood Pressure: /89 mmHg BMI: Procedures No Procedures Documented Immunizations No Immunizations Documented This Visit Final Med List: Medications that have not changed Other Medications DULoxetine (DULoxetine 30 mg oral delayed release capsule) 1 Capsules Oral (given by mouth) every day. do not crush or chew. Last Dose: ____ gabapentin (gabapentin 300 mg oral capsule) 1 Capsules Oral (given by mouth) 3 times a day. Last Dose: ____ naltrexone (Vivitrol 380 mg intramuscular injection, extended release) inject 380 MG intramusclar every FOUR WEEKS. Last Dose: ____ Other Medications DULoxetine (DULoxetine 30 mg oral delayed release capsule) 1 Capsules Oral (given by mouth) every day. do not crush or chew. gabapentin (gabapentin 300 mg oral capsule) 1 Capsules Oral (given by mouth) 3 times a day. naltrexone (Vivitrol 380 mg intramuscular injection, extended release) inject 380 MG intramusclar every FOUR WEEKS. Care Team Members: Attending Physician: Lima Cornell MD Consulting Physician: Referring Physician: Provider Role Assigned Unassigned Lima Cornell MD ED Provider 03/16/2020 20:18:08 Ned Almazan ED Nurse 03/16/2020 20:20:41 Follow up: With: Address: When: [facility] - In [place], [place] Within 1 to 2 days Discharge Orders: Discharge Patient 03/17/20 1:45:00 EDT, Discharge to Home, Self Patient Education Information: Understanding Methamphetamine Abuse and Addiction; Treating Affective (Mood) Disorders [facility]AP[facility] Poison Help line: . [facility] Health Hotline: [place] Tobacco Quit Line: [facility] ([place], [place]) [address]: [phone] [place], [place]) [address]: [phone] [facility] [address] [place], [place]: [phone] Normal [facility] hCG Quantitativeon 0 Beta hCG Qnt 1.7 mIU/mL Normal 0.0-4.9 [facility] Comment on above: Result Comment: 0.0 - 4.9 Negative for 5.0 - 25.0 Indeterminant for : Suggest repeat in 72 hours. >25.0 Positive for Performed By: #### H CG ####[place] [address] .UA Microscp Aon 03-16-2020 UA Hyline Cast Qual >20 Abnormal Negative [facility] Comment on above: Performed By: #### C [id number] ####[address] [address] UA Mucus Present Abnormal Absent [facility] Comment on above: Performed By: #### C [id number] ####[address] [address] UA RBC Quant 12 /HPF High 0-5 [facility] Comment on above: Performed By: #### C [id number] ####[address] [address] UA Squepi Cells Quant 6 /HPF Normal 0-29 [facility] Comment on above: Performed By: #### C [id number] ####[address] [address] UA WBC Quant 7 /HPF High 0-5 [facility] Comment on above: Performed By: #### C [id number] ####[address] [address] [place] [address] .eGFRon 03-16-2020 eGFR AA 52 mL/min/1.73m? Low >=[address] [facility] Comment on above: Result Comment: Resu lt = 0-14.9 mL/min/1.73 m2 Kidney failure or Dialysis Result = 15-29 mL/min/1.73 m2 Severe decrease in GFR Result = 30-59 mL/min/1.73 m2 Moderate decrease in GFR Result >= 60 mL/min/1.73 m2 Normal or increased GFR Performed By: #### E GFR #### [address] [address] eGFR Non-AA 43 mL/min/1.73m? Low >=60 [facility] Comment on above: Result Comment: Resu lt = 0-14.9 mL/min/1.73 m2 Kidney failure or Dialysis Result = 15-29 mL/min/1.73 m2 Severe decrease in GFR Result = 30-59 mL/min/1.73 m2 Moderate decrease in GFR Result >= 60 mL/min/1.73 m2 Normal or increased GFR Chronic kidney disease is defined as either kidney damage or GFR < 60 mL/min/1.73 m2 for >= 3 months. Kidney damage is defined as pathologic abnormalities or markers of damage including abnormalities in blood or urine tests or imaging studies. This GFR is NOT used for medication dosing. Performed By: #### E GFR #### [address] [address] CBC w/ Diffon 03-16-2020 Erythrocyte distribution width (RBC) [Ratio] 15.9 % High 11.6-14.8 [facility] Comment on above: Performed By: #### C BC #### [address] [address] Hematocrit (Bld) [Volume fraction] 37.5 % Normal 36.0-46.0 [facility] Comment on above: Performed By: #### C BC #### [address] [address] Hemoglobin (Bld) [Mass/Vol] 12.5 g/dL Normal 12.0-16.0 [facility] Comment on above: Performed By: #### C BC #### [address] [address] MCH (RBC) [Entitic mass] 27.4 pg Normal 27.0-35.0 [facility] Comment on above: Performed By: #### C BC #### [address] [address] MCHC (RBC) [Mass/Vol] 33.2 % Normal 31.0-37.0 [facility] Comment on above: Performed By: #### C BC #### [address] [address] MCV (RBC) [Entitic vol] 82.4 fL Normal 80.0-100.0 [facility] Comment on above: Performed By: #### C BC #### [address] [address] Platelet mean volume (Bld) [Entitic vol] 9.4 fL Normal 6.7-10.6 [facility] Comment on above: Performed By: #### C BC #### [address] [address] Platelets (Bld) [#/Vol] 307 x10*3/mcL Normal 150-350 [facility] Comment on above: Performed By: #### C BC #### [address] [address] RBC (Bld) [#/Vol] 4.55 x10*6/mcL Normal 3.80-5.20 [facility] Comment on above: Performed By: #### C BC #### [address] [address] WBC (Bld) [#/Vol] 12.9 x10*3/mcL High 4.5-11.0 [facility] Comment on above: Performed By: #### C BC #### [address] [address] CMPon 03-16-2020 Albumin [Mass/Vol] 5.2 g/dL High 3.2-4.9 [facility] Comment on above: Result Comment: [facility] Laboratory updated the methodology used for albumin testing on 04/24/18. Albumin measurement was performed using a bromcresol purple dye-binding assay. Performed By: #### C OMP #### [address] [address] Albumin/Globulin [Mass ratio] 1.5 {ratio} Normal 1.1-2.2 [facility] Comment on above: Performed By: #### C OMP #### [address] [address] Alk Phos 47 IU/L Normal 32-91 [facility] Comment on above: Performed By: #### C OMP #### [address] [address] ALT [Catalytic activity/Vol] 19 U/L Normal 14-54 [facility] Comment on above: Performed By: #### C OMP #### [address] [address] Anion gap [Moles/Vol] 22 mmol/L High 7-17 [facility] Comment on above: Performed By: #### C OMP #### [address] [address] AST [Catalytic activity/Vol] 31 U/L Normal 15-41 [facility] Comment on above: Performed By: #### C OMP #### [address] [address] Bili Total 1.4 mg/dL High 0.3-1.2 [facility] Comment on above: Performed By: #### C OMP #### [address] [address] Calcium [Mass/Vol] 10.2 mg/dL Normal 8.5-10.3 [facility] Comment on above: Performed By: #### C OMP #### [address] [address] Chloride [Moles/Vol] 100 mmol/L Normal 98-110 [facility] Comment on above: Performed By: #### C OMP #### [address] [address] CO2 [Moles/Vol] 19 mmol/L Low 22-32 [facility] Comment on above: Performed By: #### C OMP #### [address] [address] Creatinine [Mass/Vol] 1.47 mg/dL High 0.44-1.03 [facility] Comment on above: Performed By: #### C OMP #### [address] [address] Glucose [Mass/Vol] 85 mg/dL Normal 70-99 [facility] Comment on above: Performed By: #### C OMP #### [address] [address] Potassium [Moles/Vol] 3.7 mmol/L Normal 3.4-4.8 [facility] Comment on above: Performed By: #### C OMP #### [address] [address] Protein [Mass/Vol] 8.7 g/dL High 6.5-8.1 [facility] Comment on above: Performed By: #### C OMP #### [address] [address] Sodium [Moles/Vol] 137 mmol/L Normal 133-142 [facility] Comment on above: Performed By: #### C OMP #### [address] [address] Urea nitrogen [Mass/Vol] 25 mg/dL Normal 8-26 [facility] Comment on above: Performed By: #### C OMP #### [address] [address] Urea nitrogen/Creatinine [Mass ratio] 17.0 mg/mg Normal 10.0-20.0 [facility] Comment on above: Performed By: #### C OMP #### [address] [address] CPKon 03-16-2020 Creatine Phosphokinase 439 IU/L High 38-234 [facility] Comment on above: Performed By: #### C P #### [address] [address] Diff Autoon 03-16-2020 Baso Absolute 0.0 x10*3/mcL Normal 0.0-0.[address] [facility] Comment on above: Performed By: #### . Automated Diff #### [address] [address] Basophils/100 WBC (Bld) 0.4 % Normal 0.0-1.5 [facility] Comment on above: Performed By: #### . Automated Diff #### [address] [address] Eos Absolute 0.0 x10*3/mcL Normal 0.0-0.4 [facility] Comment on above: Performed By: #### . Automated Diff #### [address] [address] Eosinophils/100 WBC (Bld) 0.1 % Normal 0.0-5.4 [facility] Comment on above: Performed By: #### . Automated Diff #### [address] [address] Lymphocytes (Bld) [#/Vol] 1.4 x10*3/mcL Normal 1.0-4.8 [facility] Comment on above: Performed By: #### . Automated Diff #### [address] [address] Lymphocytes/100 WBC (Bld) 10.8 % Low 27.2-40.8 [facility] Comment on above: Performed By: #### . Automated Diff #### [address] [address] Mills Absolute 1.5 x10*3/mcL High 0.1-1.[address] [facility] Comment on above: Performed By: #### . Automated Diff #### [address] [address] [place] [address] Monocytes/100 WBC (Bld) 11.4 % Normal 3.7-11.9 [facility] Comment on above: Performed By: #### . Automated Diff #### [address] [address] Neutro Absolute 10.0 x10*3/mcL High 1.8-7.7 [facility] Comment on above: Performed By: #### . Automated Diff #### [address] [address] Neutro Auto 77.3 % High 47.2-70.8 [facility] Comment on above: Performed By: #### . Automated Diff #### [address] [address] ED Note-Nursingon 03-16-2020 ED Note-Nursing Lab called about add ons Electronically signed by Barbara Holman 03/16/20 20:49 EDT Normal [facility] ED Note-Physicianon 03-16-20 ED Note-Physician Chief Complaint I want to detox. I use meth and I've been up for 5 days. Last time I used was this morning History of Present Illness Patient is a 25 year old female who presents to the ED for evaluation of drug withdrawal. Patient states that she has been using methamphetamines for 7 years. Patient states that she hasn't slept in 5 days. She last used at 0600 this morning. Patient states that she is tired. She states that the meth use sometimes causes nausea. Patient denies fever, cough, congestion, hallucinations, suicidal ideation, and homicidal ideation. Patient states that she has tried stopping on her own in the past and was at sober living previously. She states that she has residential set up at [facility] in [place], [place] but she has to detox first. Patient denies concern for . reports her last menstrual cycle was 1 week prior. Patient admits to smoking and denies any other drug use. No other complaints at this time. Review of Systems GENERAL: [Positive for tiredness. Negative for fever] EYES: [Negative for injury, pain, redness, discharge] ENT: [Negative for injury, pain , sore throat and discharge] NECK: [Negative for injury, pain, swelling, and stiffness] CARDIOVASCULAR: [Negative for chest pain, palpitations] RESPIRATORY: [Negative for shortness of breath, cough, wheezing, and pleuritic chest pain] ABDOMEN/GI: [Negative for pain, vomiting] BACK: [Negative for injury or bruising] : [Negative for injury, bleeding, discharge, frequency, hematuria, urgency] MUSCULOSKELETAL: [Negative for arthralgias, injury and deformity] SKIN: [Negative for injury, rash, discoloration] NEURO: [Negative for focal weakness, numbness, tingling, and seizure] PSYCH: [Negative for suicidal ideation, homicidal ideation, and hallucinations] Physical Exam CONSTITUTIONAL: [no apparent distress, fidgety, wearing facial mask] SKIN: [warm, dry, no jaundice, hives or petechiae] EYES: [injected and sunken eyes, pupils are equally round, extraocular movements intact without nystagmus, non-icteric sclera] HENT: [normocephalic, atraumatic, moist mucus membranes, oropharynx clear without exudates] NECK: [Nontender and supple with no nuchal rigidity, no lymphadenopathy, full range of motion] PULMONARY: [clear to auscultation without wheezes, rhonchi, or rales, normal excursion, no accessory muscle use and no stridor] CARDIOVASCULAR: [Tachycardia no appreciated murmurs. Strong radial pulses with intact distal perfusion] GASTROINTESTINAL: [soft, non-tender, non-distended, no palpable masses, no rebound or guarding] LYMPHATICS: [no edema in lower extremities, no lymphadenopathy] MUSCULOSKELETAL: [Extremities are nontender to palpation and have no gross deformity, no edema, redness, or swelling] NEUROLOGIC: [alert, normal mentation and speech. Moves all extremities x 4 without motor or sensory deficit] PSYCHIATRIC: [Anxious appearing, fidgeting] Vitals & Measurements T: 36.7 ?C (Oral) RR: 16 BP: 117/89 SpO2: 99% HT: 167.6 cm DOSE WT: 66.3 kg Additional Vitals Peripheral Pulse Rate: 117 bpm High Procedure No qualifying data available. ASA Documentation Medical Decision Making Patient is a 25-year-old female who comes in the ED for evaluation and help with meth detox. Patient had labs in the ED including CBC the white count of 12.9, BMP with a creatinine of 1.47, CPK of 439, positive however beta quant of 1.7 which would make it negative. I did discuss for repeat in a few days with family physician. ethanol negative, positive amphetamine screen, urine with 20 ketones, negative nitrites, 7 WBCs. Patient is asymptomatic. She tolerated p.o. food and fluid in the ED. Denies any suicidal or homicidal ideations. she was given IV fluids in the ED as well. She was seen by Alonso, clinical social work aide who has arranged for her to go to [facility] tomorrow as patient is interested in treatment. Verbally contracted to safety and filled out a safety plan. Alonso with social work spoke with director of early childhood, Jelena who will arrange for further follow-up when they arrive tomorrow. Family is agreeable with plan. Patient has good support. They will return if any changes of symptoms or concern. Silvia Castañeda scribing for and in the presence of Dr. Cornell. Scribe Attestation: The information in this document, created by the manager of medical for me, accurately reflects the services I personally performed and the decisions made by me. Reexamination/Reevalu ation She is resting, calmly in the bed Assessment/Plan 1. Affective disorder 2. Drug usage 3. Renal insufficiency 4. Increased CPK level Orders: Consult to Psychiatric Prescreener Discharge Patient Vital Signs Problem List/Past Medical History Ongoing No qualifying data Historical No qualifying data Medications Home No active home medications Inpatient No active inpatient medications Prescriptions No active Prescriptions Allergies No Known Medication Allergies Social History Substance Abuse Current, Amphetamines Tobacco Never (less than 100 in lifetime) Use:. Lab Results Automated Hematology LATEST RESULTS WBC 03/16/20 20:39 12.9 High RBC 03/16/20 20:39 4.55 Hgb 03/16/20 20:39 12.5 Hct 03/16/20 20:39 37.5 MCV 03/16/20 20:39 82.4 MCH 03/16/20 20:39 27.4 MCHC 03/16/20 20:39 33.2 RDW 03/16/20 20:39 15.9 High Platelet 03/16/20 20:39 307 Mean Platelet Volume 03/16/20 20:39 9.4 Neutro Auto 03/16/20 20:39 77.3 High Lymph Auto 03/16/20 20:39 10.8 Low Mills Auto 03/16/20 20:39 11.4 Eos Auto 03/16/20 20:39 0.1 Basophil Auto 03/16/20 20:39 0.4 Neutro Absolute 03/16/20 20:39 10.0 High Lymph Absolute 03/16/20 20:39 1.4 Mills Absolute 03/16/20 20:39 1.5 High Eos Absolute 03/16/20 20:39 0.0 Baso Absolute 03/16/20 20:39 0.0 Routine Chemistry LATEST RESULTS Sodium Lvl 03/16/20 20:39 137 Potassium Lvl 03/16/20 20:39 3.7 Chloride 03/16/20 20:39 100 CO2 03/16/20 20:39 19 Low Anion Gap 03/16/20 20:39 22 High Glucose Lvl 03/16/20 20:39 85 BUN 03/16/20 20:39 25 Creatinine Lvl 03/16/20 20:39 1.47 High eGFR AA 03/16/20 20:39 52 Low eGFR Non-AA 03/16/20 20:39 43 Low BUN Crea Ratio 03/16/20 20:39 17.0 Bili Total 03/16/20 20:39 1.4 High Alk Phos 03/16/20 20:39 47 AST 03/16/20 20:39 31 ALT 03/16/20 20:39 19 Total Protein 03/16/20 20:39 8.7 High Albumin Lvl 03/16/20 20:39 5.2 High AG Ratio 03/16/20 20:39 1.5 Calcium Lvl 03/16/20 20:39 10.2 Creatine Phosphokinase 03/16/20 20:39 439 High Testing LATEST RESULTS Urine Preg 03/16/20 20:39 Positive Beta hCG Qnt 03/17/20 00:00 1.7 Random Urine Chemistry LATEST RESULTS Ur Creatinine Tox Scrn 03/16/20 20:39 >400.0 Serum Toxicology LATEST RESULTS Ethanol, Plasma 03/16/20 20:39 <10 Urine Toxicology LATEST RESULTS Ur Amph Scrn 03/16/20 20:39 Positive Abnormal Ur Anastasia Scrn 03/16/20 20:39 Negative Ur Benzodia Scrn 03/16/20 20:39 Negative Ur Cannab Scrn 03/16/20 20:39 Negative Ur Cocaine Scrn 03/16/20 20:39 Negative Ur Methadone Scn 03/16/20 20:39 Negative Ur Oxy Screen 03/16/20 20:39 Negative Ur Opiate Scrn 03/16/20 20:39 Negative Ur PCP Scrn 03/16/20 20:39 Negative UA Macroscopic LATEST RESULTS UA Source 03/16/20 20:39 Clean Catch UA Color 03/16/20 20:39 Terri UA Clarity 03/16/20 20:39 Cloudy UA Spec Grav 03/16/20 20:39 1.024 UA pH 03/16/20 20:39 5.0 UA Protein 03/16/20 20:39 100 Abnormal UA Glucose 03/16/20 20:39 Negative UA Bili 03/16/20 20:39 Small Abnormal UA Urobilinogen 03/16/20 20:39 0.2 UA Leukocyte Esterase 03/16/20 20:39 Trace Abnormal UA Nitrite 03/16/20 20:39 Negative UA Ketones 03/16/20 20:39 20 Abnormal UA Blood 03/16/20 20:39 Small Abnormal UA Microscopic LATEST RESULTS UA RBC Quant 03/16/20 20:39 12 High UA WBC Quant 03/16/20 20:39 7 High UA Mucus 03/16/20 20:39 Present Abnormal UA Squepi Cells Quant 03/16/20 20:39 6 UA Hyline Cast Qual 03/16/20 20:39 >20 Abnormal Diagnostic Results XRay No qualifying data available (XRay) Computerized Tomagraphy No qualifying data available (CT) Ultrasound No qualifying data available (Ultrasound) Magnetic Resonance Imaging No qualifying data available (MRI) Silvia Castañeda Electronically signed by Lima Cornell MD 03/17/2020 04:16 EDT Normal [facility] Ethanolon 03-16-2020 Ethanol [Mass/Vol] mg/dL Normal <=9 [facility] Comment on above: Result Comment: To c onvert mg/dL to g/dL, divide result by 1,000. Legal limit of intoxication is 80 mg/dL (0.08 g/dL). Performed By: #### A LC #### [address] [address] UA w Culture if Indon 2019 Color (U) Terri Normal [facility] Comment on above: Performed By: #### U CI #### [address] [address] Glucose (U) [Mass/Vol] Negative Normal Negative [facility] Comment on above: Performed By: #### U CI #### [address] [address] Ketones Ql (U) 20 mg/dL Abnormal Negative [facility] Comment on above: Performed By: #### U CI #### [address] [address] UA Blood Small Abnormal Negative [facility] Comment on above: Performed By: #### U CI #### [address] [address] UA Clarity Cloudy Normal [facility] Comment on above: Performed By: #### U CI #### [address] [address] UA Leukocyte Esterase Trace Abnormal Negative [facility] Comment on above: Performed By: #### U CI #### [address] [address] UA Nitrite Negative Normal Negative [facility] Comment on above: Performed By: #### U CI #### [address] [address] UA pH 5.0 Normal 4.5 - 7.8 [facility] Comment on above: Performed By: #### U CI #### [address] [address] UA Protein 100 mg/dL Abnormal Negative [facility] Comment on above: Performed By: #### U CI #### [address] [address] UA Source Clean Catch Normal [facility] Comment on above: Performed By: #### U CI #### [address] [address] UA Spec Grav 1.025 Normal 1.003-1.035 [facility] Comment on above: Performed By: #### U CI #### [address] [address] UA Urobilinogen 0.2 mg/dL Normal 0.2 - 1.0 [facility] Comment on above: Performed By: #### U CI #### [address] [address] Urobilinogen Qn (U) Small Abnormal Negative [facility] Comment on above: Performed By: #### U CI #### [address] [address] UDS Compon 03-16-2020 Creatinine [Mass/Vol] mg/dL Normal [facility] Comment on above: Performed By: #### C [id number] #### [address] [address] Ur Amph Scrn Positive Abnormal NEG = <1000 [facility] Comment on above: Result Comment: This unconfirmed positive screening result is to be used for medical treatment purposes only. Unconfirmed screening results must not be used for non-medical purposes. (e.g. employment testing, legal testing). Performed By: #### C [id number] #### [address] [address] Ur Anastasia Scrn Negative Normal NEG = <200 [facility] Comment on above: Performed By: #### C [id number] #### [facility] [address] [place] [address] Ur Benzodia Scrn Negative Normal NEG = <[address] [facility] Comment on above: Performed By: #### C [id number] #### [facility] [address] [place] [address] Ur Cannab Scrn Negative Normal NEG = <50 [facility] Comment on above: Performed By: #### C [id number] #### [facility] [address] [place] [address] Ur Cocaine Scrn Negative Normal NEG = <300 [facility] Comment on above: Performed By: #### C [id number] #### [facility] [address] [place] [address], [place] [address] Ur Methadone Scn Negative Normal NEG = <[address] [facility] Comment on above: Performed By: #### C [id number] #### [address] [place] [address] Ur Opiate Scrn Negative Normal NEG = <300 [facility] Comment on above: Performed By: #### C [id number] #### [facility] [address] [place] [address] [place] [address] Ur Oxy Screen Negative Normal NEG = <100 [facility] Comment on above: Performed By: #### C [id number] #### [facility] [address] [place] [address] Ur Oxy Scrn Qnt 54 ng/mL Normal <=99 [facility] Comment on above: Performed By: #### C [id number] #### [facility] [address] [place] [address] [place] [address] Ur PCP Scrn Negative Normal NEG = <25 [facility] Comment on above: Performed By: #### C [id number] #### [address] [place] [address] UA pH 5.0 Normal 4.5 - 7.8 [facility] Comment on above: Performed By: #### C [id number] #### [facility] [address] [place] [address] UA Spec Grav 1.024 Normal 1.003-1.035 [facility] Comment on above: Performed By: #### C [id number] #### [facility] [address] [place] [address] Chlamydia/GC DNA, Uron 11-23 Chlamydia Probe, Ur Negative Normal NEG [facility] Comment on above: Result Comment: CHLA MYDIA TRACHOMATIS DNA not detected by nucleic acid amplification. This test is intended for medical purposes only and is not valid for the evaluation of suspected sexual abuse or for other forensic purposes. In certain contexts, culture may be required to meet applicable laws and regulations for diagnosis of C. trachomatis and N. gonorrhoeae infections. Per 2014 CDC recommendations, this test does not include confirmation of positive results by an alternative nucleic acid target. Performed By: #### H IVCMB, PHEP #### [address] [id number] Follow Up Manager: Dom Fowler MD #### CP #### [facility] [address] [place] [id number] Follow Up Manager: Shakeel Graham MD Gonorrhea Probe, Ur Negative Normal NEG [facility] Comment on above: Result Comment: NEIS SERIA GONORRHOEAE DNA not detected by nucleic acid amplification. This test is intended for medical purposes only and is not valid for the evaluation of suspected sexual abuse or for other forensic purposes. In certain contexts, culture may be required to meet applicable laws and regulations for diagnosis of C. trachomatis and N. gonorrhoeae infections. Per 2014 CDC recommendations, this test does not include confirmation of positive results by an alternative nucleic acid target. Performed By: #### H IVCMB, PHEP #### [id number] [place], [place] [id number] Follow Up Manager: Dom Fowler MD #### CP #### [facility] [address] [place] [address] Follow Up Manager: Shakeel Graham MD Cult,Urineon 11-22-2019 Cult,Urine Specimen Description .VOIDED URINE Special Requests NOT REPORTED Culture NO SIGNIFICANT GROWTH Report Status FINAL 11/22/2019 Normal [facility] Comment on above: Performed By: #### H IVCMB, PHEP #### [address] [place] [address] Follow Up Manager: Dom Fowler MD #### CP #### [address] [place] [address] Follow Up Manager: Shakeel Graham MD HIV Ag/Abon 11-21-2019 HIV Ag/Ab NONREACTIVE Normal [facility] Comment on above: Result Comment: No l aboratory evidence of HIV infection. If acute HIV infection is suspected, consider testing for HIV-1 RNA. Performed By: #### H IVCMB, PHEP #### [address] [address] Follow Up Manager: Dom Fowler MD #### CP #### [address] [place] [address] Follow Up Manager: Shakeel Graham MD HIV Screenon 11-21-2019 HIV Ag/Ab NONREACTIVE NONREACTIVE [place], [place] Comment on above: No laboratory eviden ce of HIV infection. If acute HIV infection is suspected, consider testing for HIV-1 RNA. Hep C Abon 11-21-2019 Hep C Ab REACTIVE Abnormal [facility] Comment on above: Result Comment: The hepatitis C procedure used in our laboratory is a Chemiluminescent test specific for three recombinant HCV antigens. A negative anti-HCV result indicates that the antibodies to hepatitis C virus are not present at this time. Individuals with reactive anti-HCV should be considered infected and infectious until proven otherwise. Confirmation of all equivocal or reactive results is recommended by ordering HCV RNA by PCR. Results reported to the appropriate Health Department Performed By: #### H IVCMB, PHEP #### [address] [place] [address] Follow Up Manager: Dom Fowler MD #### CP #### [address] [place] [address] Follow Up Manager: Shakeel Graham MD Profileon 0 Hep B Surf Ag NONREACTIVE Normal NR [facility] Comment on above: Performed By: #### H IVCMB, PHEP #### [address] [place] [address] Follow Up Manager: Dom Fowler MD #### CP #### [address] [place] [address] Follow Up Manager: Shakeel Graham MD T.pallidum Ab Screen NONREACTIVE Normal NR [facility] Comment on above: Result Comment: T. pallidum antibodies are not detected. There is no serological evidence of infection with T. pallidum (early primary syphilis cannot be excluded). Retest in 2-4 weeks if syphilis is clinically suspect. Performed By: #### H IVCMB, PHEP #### [address] [address] Follow Up Manager: Dom Fowler MD #### CP #### [address] [place], [place] 6811083 Follow Up Manager: Shakeel Graham MD Rubella Ab, IgG 323.1 IU/mL Normal [facility] Comment on above: Result Comment: REFERENCE RANGE: <5.0 NON-REACTIVE (non-immune) 5.0 TO 9.9 EQUIVOCAL >=10.0 REACTIVE (immune) Performed By: #### H IVCMB, PHEP #### [address] [place] [address] Follow Up Manager: Dom Fowler MD #### CP #### [address] [place], [place] 1017683 Follow Up Manager: Shakeel Graham MD HCG, Quanton 11-20-2019 HCG, Quant 92113 IU/L High <5 [facility] Comment on above: Result Comment: Non-preg premeno <=5 Postmeno <=8 Male <=3 If HCG results do not concur with clinical observations, additional testing to confirm results is recommended. Elevated results not associated with may be found in patients with other diseases such as tumors of the germ cells (testis, ovaries, etc.), bladder, pancreas, stomach, lungs, and liver. Performed By: #### H IVCMB, PHEP #### [facility] [address] [place] [address] Follow Up Manager: Dom Fowler MD #### CP #### [facility] [address] [place] [address] Follow Up Manager: Shakeel Graham MD HCG, Quantitative, on 11-20-2019 hCG Quant 55210 High <5 IU/L [place], [place] Comment on above: Non-preg premeno <=5 Postmeno <=8 Male <=3 If HCG results do not concur with clinical observations, additional testing to confirm results is recommended. Elevated results not associated with may be found in patients with other diseases such as tumors of the germ cells (testis, ovaries, etc.), bladder, pancreas, stomach, lungs, and liver. Interpretation and review of laboratory results Abnormal [place], [place] Hepatitis C Antibodyon 11-19 Hepatitis C Ab REACTIVE Abnormal NONREACTIVE [place], [place] Comment on above: The hepatitis C procedure used in our laboratory is a Chemiluminescent test specific for three recombinant HCV antigens. A negative anti-HCV result indicates that the antibodies to hepatitis C virus are not present at this time. Individuals with reactive anti-HCV should be considered infected and infectious until proven otherwise. Confirmation of all equivocal or reactive results is recommended by ordering HCV RNA by PCR. Results reported to the appropriate Health Department Interpretation and review of laboratory results Abnormal [place], [place] TYPE AND SCREENon 0 11-20-2019 ABO/Rh Positive [place], [place] Profileon 0 Abs. Basophil 0.03 k/uL Normal 0.00-0.20 [facility] Comment on above: Performed By: #### H IVCMB, PHEP #### [facility] [address] [place], [place] [id number] Follow Up Manager: Dom Fowler MD #### CP #### [facility] [address] [place] [address] Follow Up Manager: Shakeel Graham MD Abs.Imm.Granulocyte <0.03 Normal 0.00-0.30 [facility] Comment on above: Performed By: #### H IVCMB, PHEP #### [address] [address] Follow Up Manager: Dom Fowler MD #### CP #### [facility] [address] [place] [address] [place] 1494283 Follow Up Manager: Shakeel Graham MD Abs.Neutrophil (Seg) 2.95 k/uL Normal 1.50-8.10 [facility] Comment on above: Performed By: #### H IVCMB, PHEP #### [place] [address] Follow Up Manager: Dom Fowler MD #### CP #### [address] [place] 7[address]0100 ( Follow Up Manager: Shakeel Graham MD Basophils/100 WBC (Bld) 1 % Normal 0-2 [facility] Comment on above: Performed By: #### H IVCMB, PHEP #### [address] [address] Follow Up Manager: Dom Fowler MD #### CP #### [address] [place] [phone] ( Follow Up Manager: Shakeel Graham MD Eosinophils (Bld) [#/Vol] 0.09 10*3/uL Normal 0.00-0.44 [facility] Comment on above: Performed By: #### H IVCMB, PHEP #### [address] [address] Follow Up Manager: Dom Fowler MD #### CP #### [address] [place], [place] 8845683 Follow Up Manager: Shakeel Graham MD Eosinophils/100 WBC (Bld) 2 % Normal 1-4 [facility] Comment on above: Performed By: #### H IVCMB, PHEP #### [address] [address] Follow Up Manager: Dom Fowelr MD #### CP #### [address] [place], [place] 0983383 Follow Up Manager: Shakeel Graham MD Erythrocyte distribution width (RBC) [Ratio] 14.0 % Normal 11.8-14.4 [facility] Comment on above: Performed By: #### H IVCMB, PHEP #### [address] [address] Follow Up Manager: Dom Fowler MD #### CP #### [address] [place], [place] 2054383 Follow Up Manager: Shakeel Graham MD Hematocrit (Bld) [Volume fraction] 37.7 % Normal 36.3-47.1 [facility] Comment on above: Performed By: #### H IVCMB, PHEP #### [address] [address] Follow Up Manager: Dom Fowler MD #### CP #### [address] [place], [place] 5810583 Follow Up Manager: Shakeel Graham MD Hemoglobin (Bld) [Mass/Vol] 11.8 g/dL Low 11.9-15.1 [facility] Comment on above: Performed By: #### H IVCMB, PHEP #### [address] [address] Follow Up Manager: Dom Fowler MD #### CP #### [address] [place] [phone] Follow Up Manager: Shakeel Graham MD Immature granulocytes (Bld) [#/Vol] 0 % Normal 0 [facility] Comment on above: Performed By: #### H IVCMB, PHEP #### [address] [address] Follow Up Manager: Dom Fowler MD #### CP #### [facility] [address] [place] [address] Dr. [place] 1494283 Follow Up Manager: Shakeel Graham MD Lymphocytes (Bld) [#/Vol] 1.50 10*3/uL Normal 1.10-3.70 [facility] Comment on above: Performed By: #### H IVCMB, PHEP #### [address] [id number] Follow Up Manager: Dom Fowler MD #### CP #### [address] [place] 1494283 Follow Up Manager: Shakeel Graham MD Lymphocytes/100 WBC (Bld) 30 % Normal 24-43 [facility] Comment on above: Performed By: #### H IVCMB, PHEP #### [address] [address] Follow Up Manager: Dom Fowler MD #### CP #### [address] [place] 1494297 ( Follow Up Manager: Shakeel Graham MD MCH (RBC) [Entitic mass] 26.5 pg Normal 25.2-33.5 [facility] Comment on above: Performed By: #### H IVCMB, PHEP #### [address] [address] Follow Up Manager: Dom Fowler MD #### CP #### [address] [place] 1494283 Follow Up Manager: Shakeel Graham MD MCHC (RBC) [Mass/Vol] 31.3 g/dL Normal 28.4-34.8 [facility] Comment on above: Performed By: #### H IVCMB, PHEP #### [address] [address] Follow Up Manager: Dom Fowler MD #### CP #### [facility] [address] [place] 1494283 Follow Up Manager: Shakeel Graham MD MCV (RBC) [Entitic vol] 84.5 fL Normal 82.6-102.9 [facility] Comment on above: Performed By: #### H IVCMB, PHEP #### [address] [address] Follow Up Manager: Dom Fowler MD #### CP #### [address] [place] 1494292 ( Follow Up Manager: Shakeel Graham MD Monocytes (Bld) [#/Vol] 0.37 10*3/uL Normal 0.10-1.20 [facility] Comment on above: Performed By: #### H IVCMB, PHEP #### [address] [address] Follow Up Manager: Dom Fowler MD #### CP #### [address] [place] 1494283 Follow Up Manager: Shakeel Graham MD Monocytes/100 WBC (Bld) 8 % Normal 3-12 [facility] Comment on above: Performed By: #### H IVCMB, PHEP #### [address] [address] Follow Up Manager: Dom Fowler MD #### CP #### [facility] [address] [place] [address] [place] [address] Follow Up Manager: Shakeel Graham MD Neutrophil (Seg) 59 % Normal 36-65 [facility] Comment on above: Performed By: #### H IVCMB, PHEP #### [address] [place] [address] Follow Up Manager: Dom Fowler MD #### CP #### [facility] [address] [place], [place] 1103483 Follow Up Manager: Shakeel Graham MD NRBC Automated 0.0 per 100 WBC Normal 0.0 [facility] Comment on above: Performed By: #### H IVCMB, PHEP #### [address] [address] Follow Up Manager: Dom Fowler MD #### CP #### [facility] [address] [place] [address] Dr. [place] 1494283 Follow Up Manager: Shakeel Graham MD Platelet mean volume (Bld) [Entitic vol] 11.2 fL Normal 8.1-13.5 [facility] Comment on above: Performed By: #### H IVCMB, PHEP #### [address] [address] Follow Up Manager: Dom Fowler MD #### CP #### [address] [place], [place] 7038983 Follow Up Manager: Shakeel Graham MD Platelets (Bld) [#/Vol] 254 10*3/uL Normal 138-453 [facility] Comment on above: Performed By: #### H IVCMB, PHEP #### [address] [address] Follow Up Manager: Dom Fowler MD #### CP #### [facility] [address] [place] [address] Dr. [place], [place] [phone] Follow Up Manager: Shakeel Graham MD RBC (Bld) [#/Vol] 4.46 10*6/uL Normal 3.95-5.11 [facility] Comment on above: Performed By: #### H IVCMB, PHEP #### [address] [place] [address] Follow Up Manager: Dom Fowler MD #### CP #### [facility] [address] [place] [address] [place] [address] Follow Up Manager: Shakeel Graham MD WBC (Bld) [#/Vol] 5.0 10*3/uL Normal 3.5-11.3 [facility] Comment on above: Performed By: #### H IVCMB, PHEP #### [address] [address] Follow Up Manager: Dom Fowler MD #### CP #### [address] [place] 1494283 Follow Up Manager: Shakeel Graham MD Auto Diff Performed NOT REPORTED Normal [facility] Comment on above: Performed By: #### H IVCMB, PHEP #### [address] [address] Follow Up Manager: Dom Fowler MD #### CP #### [address] [place] 1494283 Follow Up Manager: Shakeel Graham MD Platelets (Bld) [#/Vol] NOT REPORTED Normal [facility] Comment on above: Performed By: #### H IVCMB, PHEP #### [address] [address] Follow Up Manager: Dom Fowler MD #### CP #### [address] [place] [address] Follow Up Manager: Shakeel Graham MD RBC morphology finding Nom (Bld) NOT REPORTED Normal [facility] Comment on above: Performed By: #### H IVCMB, PHEP #### [address] [address] Follow Up Manager: Dom Fowler MD #### CP #### [facility] [address] [place] [address] Dr. [place], [place] [phone] Follow Up Manager: Shakeel Graham MD WBC Morphology NOT REPORTED Normal [facility] Comment on above: Performed By: #### H IVCMB, PHEP #### [address] [address] Follow Up Manager: Dom Fowler MD #### CP #### [address] [place], [place] 0704083 Follow Up Manager: Shakeel Graham MD Type + Scrnon 11-19 Type + Scrn Negative Normal [facility] Comment on above: Performed By: #### H IVCMB, PHEP #### [address] [phone] Follow Up Manager: Dom Fowler MD #### CP #### [address] [place], [place] [phone] Follow Up Manager: Shakeel Graham MD Toxicology Scree, Urineon Amphetamine(s),Ur Negative Normal NEG [facility] Comment on above: Performed By: #### H IVCMB, PHEP #### [address] [address] Follow Up Manager: Dom Fowler MD #### CP #### [address] [place], [place] 0151983 Follow Up Manager: Shakeel Graham MD Barbiturate(s),Ur Negative Normal NEG [facility] Comment on above: Performed By: #### H IVCMB, PHEP #### [address] [address] Follow Up Manager: Dom Fowler MD #### CP #### [address] [place], [place] 4255583 Follow Up Manager: Shakeel Graham MD Benzodiazepine(s) Negative Normal [facility] Comment on above: Performed By: #### H IVCMB, PHEP #### [address] [address] Follow Up Manager: Dom Fowler MD #### CP #### [facility] [address] [place] [address] Dr. [place], [place] 5577083 Follow Up Manager: Shakeel Graham MD Buprenorphrine, Ur Negative Normal [facility] Comment on above: Performed By: #### H IVCMB, PHEP #### [address] [address] Follow Up Manager: Dom Fowler MD #### CP #### [facility] [address] [place] [address] Dr. [place], [place] 2293283 Follow Up Manager: Shakeel Graham MD Cannabinoid(s),Ur Negative Normal [facility] Comment on above: Performed By: #### H IVCMB, PHEP #### [address] [address] Follow Up Manager: Dom Fowler MD #### CP #### [address] [place], [place] 2114783 Follow Up Manager: Shakeel Graham MD Cocaine Metabolite Negative [facility] Comment on above: Performed By: #### H IVCMB, PHEP #### [address] [address] Follow Up Manager: Dom Fowler MD #### CP #### [facility] [address] [place] [address] Dr. [place], [place] [phone] Follow Up Manager: Shakeel Graham MD Methadone Ql (U) Negative Normal NEG [facility] Comment on above: Performed By: #### H IVCMB, PHEP #### [address] [address] Follow Up Manager: Dom Fowler MD #### CP #### [facility] [address] [place] [address] Dr. [place], [place] 1993583 Follow Up Manager: Shakeel Graham MD Methamphetamine, Ur Negative Normal NEG [facility] Comment on above: Performed By: #### H IVCMB, PHEP #### [facility] [address] [place] [address] Follow Up Manager: Dom Fowler MD #### CP #### [address] [place], [place] 6082083 Follow Up Manager: Shakeel Graham MD Opiate(s), Ur Negative Normal NEG [facility] Comment on above: Performed By: #### H IVCMB, PHEP #### [address] [address] Follow Up Manager: Dom Fowler MD #### CP #### [address] [place], [place] 5778783 Follow Up Manager: Shakeel Graham MD Oxycodone, Urine Negative Normal NEG [facility] Comment on above: Performed By: #### H IVCMB, PHEP #### [address] [address] Follow Up Manager: Dom Fowler MD #### CP #### [address] [place], [place] 3618783 Follow Up Manager: Shakeel Graham MD Phencyclidine, Ur Negative Normal NEG [facility] Comment on above: Performed By: #### H IVCMB, PHEP #### [address] [address] Follow Up Manager: Dom Fowler MD #### CP #### [address] [place], [place] 4467883 Follow Up Manager: Shakeel Graham MD Propoxyphene,Urine Negative Normal NEG [facility] Comment on above: Performed By: #### H IVCMB, PHEP #### [address] [address] Follow Up Manager: Dom Fowler MD #### CP #### [facility] [address] [place] [address] [place] [address] Follow Up Manager: Shakeel Graham MD Tricyclic antidepressants Screen Ql (U) Negative Normal NEG [facility] Comment on above: Result Comment: Drug screen results are to be used for medical purposes only. All positive results are unconfirmed. Testing for employment or legal uses should be sent to a reference laboratory for confirmation. Performed By: #### H IVCMB, PHEP #### [address] [address] Follow Up Manager: Dom Fowler MD #### CP #### [address] [place], [place] 4829183 Follow Up Manager: Shakeel Graham MD Interpretive Info NOT REPORTED Normal [facility] Comment on above: Performed By: #### H IVCMB, PHEP #### [address] [address] Follow Up Manager: Dom Fowler MD #### CP #### [address] [place], [place] 3869183 Follow Up Manager: Shakeel Graham MD MDMA, Urine NOT REPORTED Normal NEG [facility] Comment on above: Performed By: #### H IVCMB, PHEP #### [address] [address] Follow Up Manager: Dom Fowler MD #### CP #### [facility] [address] [place] [address] Dr. [place], [place] [phone] Follow Up Manager: Shakeel Graham MD Urine Drug Screen, Magda grierkalyani 11-20-2019 Amphetamine Screen, Ur Negative NEGATIVE [facility] [place] Barbiturate Screen, Ur Negative NEGATIVE [facility] [place] Benzodiazepine Screen, Urine Negative NEGATIVE [facility] [place] Buprenorphine Urine Negative NEGATIVE [facility] [place] Cannabinoid Scrn, Ur Negative NEGATIVE [facility] [place] Cocaine Metabolite, Urine Negative NEGATIVE [facility] [place] MDMA, Urine NOT REPORTED [facility] [place] Methadone Screen, Urine Negative NEGATIVE [facility] [place] Methamphetamine, Urine Negative NEGATIVE [facility] [place] Opiates, Urine Negative NEGATIVE [facility] [place] Oxycodone Screen, Ur Negative NEGATIVE [facility] [place] Phencyclidine, Urine Negative NEGATIVE [facility] [place] Propoxyphene, Urine Negative NEGATIVE [facility] [place] Test Information NOT REPORTED [facility] [place] Tricyclic Antidepressants, Urine Negative NEGATIVE [facility] [place] Comment on above: Drug screen results are to be used for medical purposes only. All positive results are unconfirmed. Testing for employment or legal uses should be sent to a reference laboratory for confirmation. Chlamydia/GC DNA, Uron 06-20 Chlamydia Probe, Ur Negative Normal NEG [facility] Comment on above: Result Comment: CHLA MYDIA TRACHOMATIS DNA not detected by nucleic acid amplification. This test is intended for medical purposes only and is not valid for the evaluation of suspected sexual abuse or for other forensic purposes. In certain contexts, culture may be required to meet applicable laws and regulations for diagnosis of C. trachomatis and N. gonorrhoeae infections. Per 2014 CDC recommendations, this test does not include confirmation of positive results by an alternative nucleic acid target. Performed By: #### [facility] #### [address] [address] Follow Up Manager: Dom Fowler MD Gonorrhea Probe, Ur Negative Normal NEG [facility] Comment on above: Result Comment: NEIS SERIA GONORRHOEAE DNA not detected by nucleic acid amplification. This test is intended for medical purposes only and is not valid for the evaluation of suspected sexual abuse or for other forensic purposes. In certain contexts, culture may be required to meet applicable laws and regulations for diagnosis of C. trachomatis and N. gonorrhoeae infections. Per 2014 CDC recommendations, this test does not include confirmation of positive results by an alternative nucleic acid target. Performed By: #### U CGP #### [address] [place] [address] Follow Up Manager: Dom Fowler MD Cult,Urineon 06-20-2019 Cult,Urine Specimen Description .CLEAN CATCH URINE Special Requests NOT REPORTED Culture NO SIGNIFICANT GROWTH Report Status FINAL 06/20/2019 Normal [facility] Comment on above: Performed By: #### H IVCMB, PHEP #### [address] [address] Follow Up Manager: Dom Fowler MD #### CP #### [facility] [address] [place] [address] Follow Up Manager: Shakeel Graham MD HIV Ag/Abon 06-20-2019 HIV Ag/Ab NONREACTIVE Normal [facility] Comment on above: Result Comment: No l aboratory evidence of HIV infection. If acute HIV infection is suspected, consider testing for HIV-1 RNA. Performed By: #### A HCV, HIVCMB #### [address] [address] Follow Up Manager: Dom Fowler MD Hep C Abon 06-20-2019 Hep C Ab REACTIVE Abnormal [facility] Comment on above: Result Comment: The hepatitis C procedure used in our laboratory is a Chemiluminescent test specific for three recombinant HCV antigens. A negative anti-HCV result indicates that the antibodies to hepatitis C virus are not present at this time. Individuals with reactive anti-HCV should be considered infected and infectious until proven otherwise. Confirmation of all equivocal or reactive results is recommended by ordering HCV RNA by PCR. Results reported to the appropriate Health Department Performed By: #### A HCV, HIVCMB #### [address] [address] Follow Up Manager: Dom Fowler MD Profileon 9 T.pallidum Ab Screen NONREACTIVE Normal [facility] Comment on above: Result Comment: T. pallidum antibodies are not detected. There is no serological evidence of infection with T. pallidum (early primary syphilis cannot be excluded). Retest in 2-4 weeks if syphilis is clinically suspect. Performed By: #### P RENAT #### [address] [place] [address] Follow Up Manager: Dom Fowler MD [facility] [address] [place] [address] Dr. [place], [place] [phone] Follow Up Manager: Shakeel Graham MD Hep B Surf Ag NONREACTIVE Normal NR [facility] Comment on above: Performed By: #### P RENAT #### [address] [address] Follow Up Manager: Dom Fowler MD [address] [place] [address] Follow Up Manager: Shakeel Graham MD Rubella Ab, IgG 286.1 IU/mL Normal [facility] Comment on above: Result Comment: REFERENCE RANGE: <5.0 NON-REACTIVE (non-immune) 5.0 TO 9.9 EQUIVOCAL >=10.0 REACTIVE (immune) Performed By: #### P RENAT #### [address] [address] Follow Up Manager: Dom Fowler MD [address] [place] [address] Follow Up Manager: Shakeel Graham MD HCG, Quanton 06-19-2019 HCG, Quant [id number] IU/L High <5 [facility] Comment on above: Result Comment: Non-preg premeno <=5 Postmeno <=8 Male <=3 If HCG results do not concur with clinical observations, additional testing to confirm results is recommended. Elevated results not associated with may be found in patients with other diseases such as tumors of the germ cells (testis, ovaries, etc.), bladder, pancreas, stomach, lungs, and liver. Performed By: #### B HCG #### [facility] [address] [place] [address] Dr. [place], [place] [id number] Follow Up Manager: Shakeel Graham MD HCG, Quantitative, on 06-19-2019 hCG Quant [id number] High <5 IU/L [place], [place] Comment on above: Non-preg premeno <=5 Postmeno <=8 Male <=3 If HCG results do not concur with clinical observations, additional testing to confirm results is recommended. Elevated results not associated with may be found in patients with other diseases such as tumors of the germ cells (testis, ovaries, etc.), bladder, pancreas, stomach, lungs, and liver. Interpretation and review of laboratory results Abnormal [place] HIV Screenon 06-19-2019 HIV Ag/Ab NONREACTIVE NONREACTIVE [place], [place] Comment on above: No laboratory eviden ce of HIV infection. If acute HIV infection is suspected, consider testing for HIV-1 RNA. Hepatitis C Antibodyon 06-19 Hepatitis C Ab REACTIVE Abnormal NONREACTIVE [facility] [place], [place] Comment on above: The hepatitis C procedure used in our laboratory is a Chemiluminescent test specific for three recombinant HCV antigens. A negative anti-HCV result indicates that the antibodies to hepatitis C virus are not present at this time. Individuals with reactive anti-HCV should be considered infected and infectious until proven otherwise. Confirmation of all equivocal or reactive results is recommended by ordering HCV RNA by PCR. Results reported to the appropriate Health Department Interpretation and review of laboratory results Abnormal [place], [place] PROFILE Ion 019 Basophils (Bld) [#/Vol] 10*3/uL [place] Basophils/100 WBC (Bld) 1 % 0 - 2 % [place] Differential Type NOT REPORTED [place] Eosinophils (Bld) [#/Vol] 0.09 10*3/uL [place] Eosinophils/100 WBC (Bld) 2 % 1 - 4 % [place] Erythrocyte distribution width (RBC) [Ratio] 15.7 % High 11.8 - 14.4 % [place] Hematocrit (Bld) [Volume fraction] 36.5 % 36.3 - 47.1 % [place] Hemoglobin (Bld) [Mass/Vol] 11.2 g/dL Low 11.9 - 15.1 g/dL [place] Hepatitis B Surface Ag NONREACTIVE NONREACTIVE [place] Immature granulocytes (Bld) [#/Vol] 0 % 0 [place] Immature granulocytes (Bld) [#/Vol] 10*3/uL [place] Interpretation and review of laboratory results Abnormal [place] Lymphocytes (Bld) [#/Vol] 1.98 10*3/uL [place] Lymphocytes/100 WBC (Bld) 46 % High 24 - 43 % [place] MCH (RBC) [Entitic mass] 25.6 pg 25.2 - 33.5 pg [place] MCHC (RBC) [Mass/Vol] 30.7 g/dL 28.4 - 34.8 g/dL [place] MCV (RBC) [Entitic vol] 83.3 fL 82.6 - 102.9 fL [place] Monocytes (Bld) [#/Vol] 0.37 10*3/uL [place] Monocytes/100 WBC (Bld) 9 % 3 - 12 % [place] Platelet mean volume (Bld) [Entitic vol] 11.6 fL 8.1 - 13.5 fL [place] Platelets (Bld) [#/Vol] NOT REPORTED [place] Platelets (Bld) [#/Vol] 196 10*3/uL [place] RBC (Bld) [#/Vol] 4.38 10*6/uL 3.95 - 5.1 1 m/uL [place] RBC morphology finding Nom (Bld) NOT REPORTED [place] Rubella virus IgG Ql (S) 286.1 IU/mL [place] Comment on above: REFERENCE RANGE: <5.0 NON-REACTIVE (non-immune) 5.0 TO 9.9 EQUIVOCAL >=10.0 REACTIVE (immune) Segmented neutrophils/100 WBC (Bld) 42 % 36 - 65 % [place] Segs Absolute 1.75 [place] T. pallidum, IgG NONREACTIVE NONREACTIVE [place] Comment on above: T. pallidum antibodies are not detected. There is no serological evidence of infection with T. pallidum (early primary syphilis cannot be excluded). Retest in 2-4 weeks if syphilis is clinically suspect. WBC (Bld) [#/Vol] 4.2 10*3/uL [place] WBC (Bld) [#/Vol] 0.0 10*3/uL 0.0 per 100 WBC [place] WBC Morphology NOT REPORTED [place] TYPE AND SCREENon 1 ABO/Rh Positive [place], [place] Profileon 9 Abs. Basophil <0.03 Normal 0.00-0.20 [facility] Comment on above: Performed By: #### P RENAT #### [address] [address] Follow Up Manager: Dom Fowler MD [facility] [address] [place] [address] [place] [id number] Follow Up Manager: Shakeel Graham MD Abs.Imm.Granulocyte <0.03 Normal 0.00-0.30 [facility] Comment on above: Performed By: #### P RENAT #### [address] [address] Follow Up Manager: Dom Fowler MD [address] [place] 1494283 Follow Up Manager: Shakeel Graham MD Abs.Neutrophil (Seg) 1.75 k/uL Normal 1.50-8.10 [facility] Comment on above: Performed By: #### P RENAT #### [address] [address] Follow Up Manager: Dom Fowler MD [facility] [address] [place] [address] [place] [address] Follow Up Manager: Shakeel Graham MD Basophils/100 WBC (Bld) 1 % Normal 0-2 [facility] Comment on above: Performed By: #### P RENAT #### [address] [id number] Follow Up Manager: Dom Fowler MD [address] [place], [place] [id number] Follow Up Manager: Shakeel Graham MD Eosinophils (Bld) [#/Vol] 0.09 10*3/uL Normal 0.00-0.44 [facility] Comment on above: Performed By: #### P RENAT #### [address] [address] Follow Up Manager: Dom Fowler MD [address] [place] 1494283 Follow Up Manager: Shakeel Graham MD Eosinophils/100 WBC (Bld) 2 % Normal 1-4 [facility] Comment on above: Performed By: #### P RENAT #### [address] [address] Follow Up Manager: Dom Fowler MD [address] [place] 1494283 Follow Up Manager: Shakeel Graham MD Erythrocyte distribution width (RBC) [Ratio] 15.7 % High 11.8-14.4 [facility] Comment on above: Performed By: #### P RENAT #### [address] [address] Follow Up Manager: Dom Fowler MD [address] [place] 1494283 Follow Up Manager: Shakeel Graham MD Hematocrit (Bld) [Volume fraction] 36.5 % Normal 36.3-47.1 [facility] Comment on above: Performed By: #### P RENAT #### [address] [address] Follow Up Manager: Dom Fowler MD [address] [place] 1494283 Follow Up Manager: Shakeel Graham MD Hemoglobin (Bld) [Mass/Vol] 11.2 g/dL Low 11.9-15.1 [facility] Comment on above: Performed By: #### P RENAT #### [place] [address] [place] [address] Follow Up Manager: Dom Fowler MD [address] [place] 1494283 Follow Up Manager: Shakeel Graham MD Immature granulocytes (Bld) [#/Vol] 0 % Normal 0 [facility] Comment on above: Performed By: #### P RENAT #### [address] [address] Follow Up Manager: Dom Fowler MD [address] [place] 1494283 Follow Up Manager: Shakeel Graham MD Lymphocytes (Bld) [#/Vol] 1.98 10*3/uL Normal 1.10-3.70 [facility] Comment on above: Performed By: #### P RENAT #### [address] [address] Follow Up Manager: Dom Fowler MD [address] [place] 1494283 Follow Up Manager: Shakeel Graham MD Lymphocytes/100 WBC (Bld) 46 % High 24-43 [facility] Comment on above: Performed By: #### P RENAT #### [address] [address] Follow Up Manager: Dom Fowler MD [address] [place] 1494283 Follow Up Manager: Shakeel Graham MD MCH (RBC) [Entitic mass] 25.6 pg Normal 25.2-33.5 [facility] Comment on above: Performed By: #### P RENAT #### [address] [address] Follow Up Manager: Dom Fowler MD [address] [place], [place] 6874783 Follow Up Manager: Shakeel Graham MD MCHC (RBC) [Mass/Vol] 30.7 g/dL Normal 28.4-34.8 [facility] Comment on above: Performed By: #### P RENAT #### [address] [address] Follow Up Manager: Dom Fowler MD [address] [place] 1494283 Follow Up Manager: Shakeel Graham MD MCV (RBC) [Entitic vol] 83.3 fL Normal 82.6-102.9 [facility] Comment on above: Performed By: #### P RENAT #### [address] [address] Follow Up Manager: Dom Fowler MD [address] [place] 1494283 Follow Up Manager: Shakeel Graham MD Monocytes (Bld) [#/Vol] 0.37 10*3/uL Normal 0.10-1.20 [facility] Comment on above: Performed By: #### P RENAT #### [address] [address] Follow Up Manager: Dom Fowler MD [address] [place] [address] Follow Up Manager: Shakeel Graham MD Monocytes/100 WBC (Bld) 9 % Normal 3-12 [facility] Comment on above: Performed By: #### P RENAT #### [address] [address] Follow Up Manager: Dom Fowler MD [address] [place] 1494283 Follow Up Manager: Shakeel Graham MD Neutrophil (Seg) 42 % Normal 36-65 [facility] Comment on above: Performed By: #### P RENAT #### [address] [address] Follow Up Manager: Dom Fowler MD [address] [place] [address] Follow Up Manager: Shakeel Graham MD NRBC Automated 0.0 per 100 WBC Normal 0.0 [facility] Comment on above: Performed By: #### P RENAT #### [address] [address] Follow Up Manager: Dom Fowler MD [address] [place] [address] Follow Up Manager: Shakeel Graham MD Platelet mean volume (Bld) [Entitic vol] 11.6 fL Normal 8.1-13.5 [facility] Comment on above: Performed By: #### P RENAT #### [address] [address] Follow Up Manager: Dom Fowler MD [address] [place] 1494283 Follow Up Manager: Shakeel Graham MD Platelets (Bld) [#/Vol] 196 10*3/uL Normal 138-453 [facility] Comment on above: Performed By: #### P RENAT #### [address] [address] Follow Up Manager: Dom Fowler MD [address] [place] 1494283 Follow Up Manager: Shakeel Graham MD RBC (Bld) [#/Vol] 4.38 10*6/uL Normal 3.95-5.11 [facility] Comment on above: Performed By: #### P RENAT #### [address] [address] Follow Up Manager: Dom Fowler MD [address] [place] 1494283 Follow Up Manager: Shakeel Graham MD WBC (Bld) [#/Vol] 4.2 10*3/uL Normal 3.5-11.3 [facility] Comment on above: Performed By: #### P RENAT #### [facility] [address] [place] [address] Follow Up Manager: Dom Fowler MD [address] [place] [phone] Follow Up Manager: Shakeel Graham MD Auto Diff Performed NOT REPORTED Normal [facility] Comment on above: Performed By: #### P RENAT #### [address] [address] Follow Up Manager: Dom Fowler MD [address] [place] [address] Follow Up Manager: Shakeel Graham MD Platelets (Bld) [#/Vol] NOT REPORTED Normal [facility] Comment on above: Performed By: #### P RENAT #### [address] [address] Follow Up Manager: Dom Fowler MD [address] [place] [address] Follow Up Manager: Shakeel Graham MD RBC morphology finding Nom (Bld) NOT REPORTED Normal [facility] Comment on above: Performed By: #### P RENAT #### [address] [address] Follow Up Manager: Dom Fowler MD [address] [place] [address] Follow Up Manager: Shakeel Graham MD WBC Morphology NOT REPORTED Normal [facility] Comment on above: Performed By: #### P RENAT #### [address] [address] Follow Up Manager: Dom Fowler MD [address] [place] [address] Follow Up Manager: Shakeel Graham MD Type + Scrnon 06-19 Type + Scrn Negative [facility] Comment on above: Performed By: #### P RTYS #### [facility] [address] [place], [place] 2753183 Follow Up Manager: Shakeel Graham MD Toxicology Scree, Urineon Amphetamine(s),Ur Negative Normal NEG [facility] Comment on above: Performed By: #### C PDAU #### [facility] [address] [place], [place] 8652783 Follow Up Manager: Shakeel Graham MD Barbiturate(s),Ur Negative Normal NEG [facility] Comment on above: Performed By: #### C PDAU #### [facility] [address] [place], [facility]83 Follow Up Manager: Shakeel Graham MD Benzodiazepine(s) Negative Normal [facility] Comment on above: Performed By: #### C PDAU #### [facility] [address] [place], [facility]83 Follow Up Manager: Shakeel Graham MD Buprenorphrine, Ur Negative Normal [facility] Comment on above: Performed By: #### C PDAU #### [facility] [address] [place], [place] [address] Follow Up Manager: Shakeel Graham MD Cannabinoid(s),Ur Negative Normal [facility] Comment on above: Performed By: #### C PDAU #### [facility] [address] [place], [place] [phone] Follow Up Manager: Shakeel Graham MD Cocaine Metabolite Negative Normal [facility] Comment on above: Performed By: #### C PDAU #### [facility] [address] [place], [place] [id number] Follow Up Manager: Shakeel Graham MD Methadone Ql (U) Negative Normal NEG [facility] Comment on above: Performed By: #### C PDAU #### [facility] [address] [place], [place] [phone] Follow Up Manager: Shakeel Graham MD Methamphetamine, Ur Negative Normal NEG [facility] Comment on above: Performed By: #### C PDAU #### [facility] [address] [place], [place] 7852383 Follow Up Manager: Shakeel Graham MD Opiate(s), Ur Negative Normal NEG [facility] Comment on above: Performed By: #### C PDAU #### [facility] [address] [place] [address] Follow Up Manager: Shakeel Graham MD Oxycodone, Urine Negative Normal NEG [facility] Comment on above: Performed By: #### C PDAU #### [facility] [address] [place], [facility]83 Follow Up Manager: Shakeel Graham MD Phencyclidine, Ur Negative Normal NEG [facility] Comment on above: Performed By: #### C PDAU #### [facility] [address] [place] [address] Dr. [place], [facility]83 Follow Up Manager: Shakeel Graham MD Propoxyphene,Urine Negative Normal NEG [facility] Comment on above: Performed By: #### C PDAU #### [facility] [address] [place], [facility]83 Follow Up Manager: Shakeel Graham MD Tricyclic antidepressants Screen Ql (U) Positive Abnormal NEG [facility] Comment on above: Result Comment: Drug screen results are to be used for medical purposes only. All positive results are unconfirmed. Testing for employment or legal uses should be sent to a reference laboratory for confirmation. Performed By: #### C PDAU #### [facility] [address] [place] [address] Follow Up Manager: Shakeel Graham MD Interpretive Info NOT REPORTED Normal [facility] Comment on above: Performed By: #### C PDAU #### [facility] [address] [place] [address] Follow Up Manager: Shakeel Graham MD MDMA, Urine NOT REPORTED Normal NEG [facility] Comment on above: Performed By: #### C PDAU #### [facility] [address] [place] [address] Follow Up Manager: Shakeel Graham MD Urine Drug Screen, Magda sanchez 06-19-2019 Amphetamine Screen, Ur Negative NEGATIVE [facility] [place] Barbiturate Screen, Ur Negative NEGATIVE [facility] [place] Benzodiazepine Screen, Urine Negative NEGATIVE [facility] [place] Buprenorphine Urine Negative NEGATIVE [facility] [place] Cannabinoid Scrn, Ur Negative NE[facility]IVE [facility] [place] Cocaine Metabolite, Urine Negative NEGATIVE [facility] [place] Interpretation and review of laboratory results Abnormal [facility] [place] MDMA, Urine NOT REPORTED NEGATIVE [facility] [place] [place] Methadone Screen, Urine Negative NEGATIVE [facility] [place] Methamphetamine, Urine Negative NEGATIVE [facility] [place] Opiates, Urine Negative NEGATIVE [facility] [place] Oxy[place]one Screen, Ur Negative NEGATIVE [facility] [place] Phencyclidine, Urine Negative NEGATIVE [facility] [place] Propoxyphene, Urine Negative NEGATIVE [facility] [place] Test Information NOT REPORTED [facility] [place] Tricyclic Antidepressants, Urine Positive Abnormal NEGATIVE [facility] [place] Comment on above: Drug screen results are to be used for medical purposes only. All positive results are unconfirmed. Testing for employment or legal uses should be sent to a reference laboratory for confirmation. HIV Ag/Abon 05-10-2019 HIV Ag/Ab NONREACTIVE Normal NR [facility] Comment on above: Result Comment: No l aboratory evidence of HIV infection. If acute HIV infection is suspected, consider testing for HIV-1 RNA. Performed By: #### H IVCMB, PHEP #### [facility] [place] [address] Follow Up Manager: Dom Fowler MD #### CP #### [facility] [address] [place] [address] Dr. [place], [place] [id number] Follow Up Manager: Shakeel Graham MD Hepatitis Acute [place]anner 05-10 Hep A Ab,IgM NONREACTIVE Normal [facility] Comment on above: Performed By: #### H IVCMB, PHEP #### [address] [address] Follow Up Manager: Dom Fowler MD #### CP #### [facility] [address] [place] [address] Dr. [place], [place] [id number] Follow Up Manager: Shakeel Graham MD Hep B Core Ab,IgM NONREACTIVE Normal [facility] Comment on above: Performed By: #### H IVCMB, PHEP #### [address] [address] Follow Up Manager: Dom Fowler MD #### CP #### [address] [place], [place] 7913083 Follow Up Manager: Shakele Graham MD Hep B Surf Ag NONREACTIVE Normal [facility] Comment on above: Performed By: #### H IVCMB, PHEP #### [address] [address] Follow Up Manager: Dom Fowler MD #### CP #### [address] [place] [address] Follow Up Manager: Shakeel Graham MD Hep C Ab REACTIVE Abnormal [facility] Comment on above: Result Comment: The hepatitis C procedure used in our laboratory is a Chemiluminescent test specific for three recombinant HCV antigens. A negative anti-HCV result indicates that the antibodies to hepatitis C virus are not present at this time. Individuals with reactive anti-HCV should be considered infected and infectious until proven otherwise. Confirmation of all equivocal or reactive results is recommended by ordering HCV RNA by PCR. Results reported to the appropriate Health Department Performed By: #### H IVCMB, PHEP #### [address] [place] [address] Follow Up Manager: Dom Fowler MD #### CP #### [address] [place], [place] 9695783 Follow Up Manager: Shakeel Graham MD Comp Metabolic Profon 2018 (cont.) [facility] Comment on above: Result Comment: Aver age GFR for 20-29 years old: 116 mL/min/1.73sq m Chronic Kidney Disease: <60 mL/min/1.73sq m Kidney failure: <15 mL/min/1.73sq m eGFR calculated using average adult body mass. Additional eGFR calculator available at: http://www.[employer]/multiple_crcl_2011.htm Performed By: #### H IVCMB, PHEP #### [address] [address] Follow Up Manager: Dom Fowler MD #### CP #### [address] [place], [place] 3305583 Follow Up Manager: Shakeel Graham MD Albumin [Mass/Vol] 4.3 g/dL Normal 3.5-5.2 [facility] Comment on above: Performed By: #### H IVCMB, PHEP #### [address] [address] Follow Up Manager: Dom Fowler MD #### CP #### [address] [place], [place] [id number] Follow Up Manager: Shakeel Graham MD Albumin/Globulin [Mass ratio] 1.4 {ratio} Normal 1.0-2.5 [facility] Comment on above: Performed By: #### H IVCMB, PHEP #### [address] [address] Follow Up Manager: Dom Fowler MD #### CP #### [address] [place], [place] 9212183 Follow Up Manager: Shakeel Graham MD Alkaline Phos 50 U/L Normal 35-104 [facility] Comment on above: Performed By: #### H IVCMB, PHEP #### [address] [address] Follow Up Manager: Dom Fowler MD #### CP #### [facility] [address] [place] [address] Dr. [place], [place] [id number] Follow Up Manager: Shakeel Graham MD ALT [Catalytic activity/Vol] 9 U/L Normal 5-33 [facility] Comment on above: Performed By: #### H IVCMB, PHEP #### [address] [address] Follow Up Manager: Dom Fowler MD #### CP #### [address] [place] 1494283 Follow Up Manager: Shakeel Graham MD Anion gap [Moles/Vol] 8 mmol/L Low 9-17 [facility] Comment on above: Performed By: #### H IVCMB, PHEP #### [address] [address] Follow Up Manager: Dom Fowler MD #### CP #### [address] [place] 1494283 Follow Up Manager: Shakeel Graham MD AST [Catalytic activity/Vol] 15 U/L Normal <32 [facility] Comment on above: Performed By: #### H IVCMB, PHEP #### [address] [address] Follow Up Manager: Dom Fowler MD #### CP #### [address] [place], [place] 9396583 Follow Up Manager: Shakeel Graham MD Bilirubin Ql (U) 0.31 mg/dL Normal 0.3-1.2 [facility] Comment on above: Performed By: #### H IVCMB, PHEP #### [address] [address] Follow Up Manager: Dom Fowler MD #### CP #### [facility] [address] [place], [place] 9349783 Follow Up Manager: Shakeel Graham MD BUN/CRE Ratio 20 Normal 9-20 [facility] Comment on above: Performed By: #### H IVCMB, PHEP #### [address] [address] Follow Up Manager: Dom Fowler MD #### CP #### [facility] [address] [place], [place] 0015783 Follow Up Manager: Shakeel Graham MD Calcium [Mass/Vol] 9.4 mg/dL Normal 8.6-10.4 [facility] Comment on above: Performed By: #### H IVCMB, PHEP #### [address] [address] Follow Up Manager: Dom Fowler MD #### CP #### [address] [place], [place] 4302483 Follow Up Manager: Shakeel Graham MD Chloride [Moles/Vol] 102 mmol/L Normal 98-107 [facility] Comment on above: Performed By: #### H IVCMB, PHEP #### [address] [address] Follow Up Manager: Dom Fowler MD #### CP #### [facility] [address] [place], [place] 8405783 Follow Up Manager: Shakeel Graham MD CO2 [Moles/Vol] 28 mmol/L Normal 20-31 [facility] Comment on above: Performed By: #### H IVCMB, PHEP #### [address] [address] Follow Up Manager: Dom Fowler MD #### CP #### [facility] [address] [place], [place] 8573483 Follow Up Manager: Shakeel Graham MD Creatinine [Mass/Vol] 0.92 mg/dL High 0.50-0.90 [facility] Comment on above: Performed By: #### H IVCMB, PHEP #### [address] [address] Follow Up Manager: Dom Fowler MD #### CP #### [facility] [address] [place] [address] Follow Up Manager: Shakeel Graham MD GFR, Amer >60 Normal >60 [facility] Comment on above: Performed By: #### H IVCMB, PHEP #### [address] [address] Follow Up Manager: Dom Fowler MD #### CP #### [facility] [address] [place] [address] [place] [address] Follow Up Manager: Shakeel Graham MD GFR,non Amer >60 Normal >60 [facility] Comment on above: Performed By: #### H IVCMB, PHEP #### [address] [address] Follow Up Manager: Dom Fowler MD #### CP #### [facility] [address] [place], [place] 3387783 Follow Up Manager: Shakeel Graham MD Glucose [Mass/Vol] 91 mg/dL Normal 70-99 [facility] Comment on above: Performed By: #### H IVCMB, PHEP #### [address] [address] Follow Up Manager: Dom Fowler MD #### CP #### [address] [place], [place] 8903283 Follow Up Manager: Shakeel Graham MD Potassium [Moles/Vol] 4.3 mmol/L Normal 3.7-5.3 [facility] Comment on above: Performed By: #### H IVCMB, PHEP #### [address] [address] Follow Up Manager: Dom Fowler MD #### CP #### [address] [place], [place] 9359083 Follow Up Manager: Shakeel Graham MD Protein [Mass/Vol] 7.4 g/dL Normal 6.4-8.3 [facility] Comment on above: Performed By: #### H IVCMB, PHEP #### [address] [address] Follow Up Manager: Dom Fowler MD #### CP #### [address] [place], [place] 6962883 Follow Up Manager: Shakeel Graham MD Sodium [Moles/Vol] 138 mmol/L Normal 135-144 [facility] Comment on above: Performed By: #### H IVCMB, PHEP #### [address] [address] Follow Up Manager: Dom Fowler MD #### CP #### [address] [place], [place] 7904183 Follow Up Manager: Shakeel Graham MD Staging: Normal [facility] Comment on above: Result Comment: Stag e 1: Some kidney damage normal GFR Stage 2: Mild kidney damage GFR 60-89 Stage 3: Moderate kidney damage GFR 30-59 Stage 4: Severe kidney damage GFR 15-29 Stage 5: Severe kidney damage GFR <15 ESRD - chronic treatment by dialysis or transplant Performed By: #### H IVCMB, PHEP #### [address] [address] Follow Up Manager: Dom Fowler MD #### CP #### [facility] [address] [place] [address] Follow Up Manager: Shakeel Graham MD Urea nitrogen [Mass/Vol] 18 mg/dL Normal 6-20 [facility] Comment on above: Performed By: #### H IVCMB, PHEP #### [facility] [address] [place], [place] [id number] Follow Up Manager: Dom Fowler MD #### CP #### [facility] [address] [place] [address] Follow Up Manager: Shakeel Graham MD [facility] Metabolic Pane [facility] 05-09-2019 Albumin [Mass/Vol] 4.3 g/dL 3.5 - 5.2 g/dL [place], [place] Albumin/Globulin [Mass ratio] 1.4 {ratio} [place], [place] ALP [Catalytic activity/Vol] 50 U/L 35 - 104 U/L [place] ALT [Catalytic activity/Vol] 9 U/L 5 - 33 U/L [place] Anion gap [Moles/Vol] 8 mmol/L Low 9 - 17 mmol/L [place] AST [Catalytic activity/Vol] 15 U/L <32 [place] Bilirubin Ql (U) 0.31 mg/dL 0.3 - 1.2 mg/dL [place] Bun/Cre Ratio 20 [place], [place] Calcium [Mass/Vol] 9.4 mg/dL 8.6 - 10. 4 mg/dL [place] Chloride [Moles/Vol] 102 mmol/L 98 - 107 mmol/L [place] CO2 [Moles/Vol] 28 mmol/L 20 - 31 mmol/L [place] Creatinine [Mass/Vol] 0.92 mg/dL High 0.5 - 0.9 mg/dL [place] GFR >60 >60 mL/min [place] GFR Non- >60 >60 mL/min [place] Glucose [Mass/Vol] 91 mg/dL 70 - 99 mg/dL [place] Interpretation and review of laboratory results Abnormal [place] Potassium [Moles/Vol] 4.3 mmol/L 3.7 - 5.3 mmol/L [place] Protein [Mass/Vol] 7.4 g/dL 6.4 - 8.3 g/dL [place] Sodium [Moles/Vol] 138 mmol/L 135 - 144 mmol/L [place] Urea nitrogen [Mass/Vol] 18 mg/dL 6 - 20 mg/dL [place] Hepatitis Panel, Acuteon HAV IgM IA Qn (S) NONREACTIVE NONREACTIVE [place] Hep B Core Ab, IgM NONREACTIVE NONREACTIVE [place] Hepatitis B Surface Ag NONREACTIVE NONREACTIVE [place] Hepatitis C Ab REACTIVE Abnormal NONREACTIVE [place] Comment on above: The hepatitis C procedure used in our laboratory is a Chemiluminescent test specific for three recombinant HCV antigens. A negative anti-HCV result indicates that the antibodies to hepatitis C virus are not present at this time. Individuals with reactive anti-HCV should be considered infected and infectious until proven otherwise. Confirmation of all equivocal or reactive results is recommended by ordering HCV RNA by PCR. Results reported to the appropriate Health Department Interpretation and review of laboratory results Abnormal [place] Metabolic Panelon 05-09-2019 GFR/1.73 sq M predicted among non-blacks MDRD (S/P/Bld) [Vol rate/Area] [place] Comment on above: Average GFR for 20-2 9 years old: 116 mL/min/1.73sq m Chronic Kidney Disease: <60 mL/min/1.73sq m Kidney failure: <15 mL/min/1.73sq m eGFR calculated using average adult body mass. Additional eGFR calculator available at: http://[email or web address].Comr.se/multiple_crcl_2012.htm Stage 1: Some kidney damage normal GFR Stage 2: Mild kidney damage GFR 60-89 Stage 3: Moderate kidney damage GFR 30-59 Stage 4: Severe kidney damage GFR 15-29 Stage 5: Severe kidney damage GFR <15 ESRD - chronic treatment by dialysis or transplant Drug Scr, Abuse, Uron 2017 Amphetamine(s),Ur Positive Abnormal NEG [facility] Comment on above: Result Comment: (Pos itive cutoff 1000 ng/mL) Performed By: #### D AU ####[address] [address] Barbiturate(s),Ur Negative Normal NEG [facility] Comment on above: Result Comment: (Pos itive cutoff 200 ng/mL) Performed By: #### D AU ####[address] [address] Base excess Negative Normal NEG [facility] Comment on above: Result Comment: (Pos itive cutoff 300 ng/mL) Performed By: #### D AU ####[address] [address] Benzodiazepine(s) Negative Normal NEG [facility] Comment on above: Result Comment: (Pos itive cutoff 200 ng/mL) Performed By: #### D AU ####[address] [address] Cannabinoid(s),Ur Negative Normal NEG [facility] Comment on above: Result Comment: (Pos itive cutoff 50 ng/mL) Performed By: #### D AU ####[address] [address] Interpretive Info Assay provides medical screening only. The absence of expected drug(s) and/or Normal [facility] Comment on above: Result Comment: meta bolite(s) may indicate diluted or adulterated urine, limitations of testing or timing of collection.Testing for legal purposes should be confirmed by another method. To request confirmation of test result, please call the lab within 7 days of sample submission.Performed at [address] [address] Performed By: #### D AU ####[address] [address] Opiate(s), Ur Negative Normal NEG [facility] Comment on above: Result Comment: (Pos itive cutoff 300 ng/mL) Performed By: #### D AU ####[address] [address] Oxycodone, Urine Negative Normal NEG [facility] Comment on above: Result Comment: (Pos itive cutoff 100 ng/mL) Performed By: #### D AU ####[address] [address] Phencyclidine, Ur Negative Normal NEG [facility] Comment on above: Result Comment: (Pos itive cutoff 25 ng/mL) Performed By: #### D AU ####[address] [address] Urine, methadone presence Negative Normal NEG [facility] Comment on above: Result Comment: (Pos itive cutoff 300 ng/mL) Performed By: #### D AU ####[address] [address] Buprenorphrine, Ur NOT REPORTED Normal NEG [facility] Comment on above: Performed By: #### D AU ####[address] [address] MDMA, Urine NOT REPORTED Normal NEG [facility] Comment on above: Performed By: #### D AU ####[address] [address] Methamphetamine, Ur NOT REPORTED Normal NEG [facility] Comment on above: Performed By: #### D AU ####[address] [address] Propoxyphene,Urine NOT REPORTED Normal NEG [facility] Comment on above: Performed By: #### D AU ####[address] [address] Urine, tricyclic antidepressants NOT REPORTED Normal NEG [facility] Comment on above: Performed By: #### D AU ####[address] [address] Lipid Profileon 11-05-2017 Cholesterol 137 mg/dL Normal <200 [facility] Comment on above: Result Comment: Chol esterol Guidelines: <200 Desirable 200-240 Borderline >240 Undesirable Performed By: #### L IPR ####[address] [address] Cholesterol to HDL Ratio 4.3 {ratio} Normal <5 [facility] Comment on above: Performed By: #### L IPR ####[address] [address] HDL Cholesterol 32 mg/dL Low >40 [facility] Comment on above: Result Comment: HDL Guidelines: <40 Undesirable 40-59 Borderline >59 Desirable Performed By: #### L IPR ####[address] [address] LDL Cholesterol 82 mg/dL Normal 0-130 [facility] Comment on above: Result Comment: LDL Guidelines: <100 Desirable 100-129 Near to/above Desirable 130-159 Borderline >159 UndesirableDirect (measured) LDL and calculated LDL are not interchangeable tests. Performed By: #### L IPR ####[address] [address] Triglyceride 113 mg/dL Normal <150 [facility] Comment on above: Result Comment: Trig lyceride Guidelines: <150 Desirable 150- 199 Borderline 200-499 High >499 Very high Based on AHA Guidelines for fasting triglyceride, June 2012.Performed at [facility] [address] [place] [address] Performed By: #### L IPR ####[facility] [facility] [place] [address] Cholesterol in VLDL mass conc NOT REPORTED Normal 10-16 [facility] Comment on above: Performed By: #### L IPR ####[facility] [facility] [place] [address] Encounters Encounter Date Encounter Type Care Provider Facility Start: 08-21-2023 End: 08-21-2023 ambulatory YOUSIF APARICIO Not Available Start: 08-01-2023 End: 08-01-2023 ambulatory LUIS FELIPE HALL Not Available Start: 12-21-2022 End: 12-21-2022 ambulatory IVAN CAMEJO . Facility:[facility] Start: 11-29-2022 End: 11-29-[address] RODO MENCHACA Facility:[facility] Start: 10-25-2022 [facility] Facility:[facility] Start: 10-11-2022 End: 10-11-[address] CHRISTINE SÁNCHEZ Facility:[facility] Start: 09-12-2022 End: 09-13-[address] YOUSIF APARICIO . Facility:[facility] Start: 08-19-2022 Encounter for preprocedural laboratory examination DR YOUSIF APARICIO . [facility] Start: 08-18-2022 End: 08-18-[address] YOUSIF APARICIO . Facility:[facility] Start: 08-16-2022 End: 08-17-[address] YOUSIF APARICIO . Facility:[facility] Start: 08-16-2022 End: 08-17-2022 Encounter for preprocedural laboratory examination DR YOUSIF APARICIO . Facility:[facility] Start: 08-14-2022 End: 08-15-2022 [facility] Facility:[facility] Start: 07-27-2022 End: 07-28-[address] YOUSIF APARICIO . Facility:[facility] Start: 07-09-2022 End: 07-09-[address] ELISEO HARDING Facility:[facility] Start: 12-12-2021 Telephone encounter King zee MD Work Phone: Hematology/Oncology Comment on above: Lab Orders Start: 10-28-2021 Chart abstracting King fleming MD Work Phone: Hematology/Oncology Start: 04-26-2020 End: 04-27-2020 Patient encounter procedure ANTHONY FARIDA [facility] Start: 04-26-2020 End: 04-26-2020 Subsequent hospital visit by physician Rochelle ALFRED Laboratory Start: 03-16-2020 End: 03-17-2020 Emergency department patient visit [facility] Facility[facility] Start: 11-20-2019 End: 11-21-2019 Patient encounter procedure [facility] Start: 11-20-2019 End: 11-20-2019 Subsequent hospital visit by physician Rochelle ALFRED Laboratory Comment on above: History of miscarria ge, currently ; Amenorrhea; Positive urine test; Encounter for supervision of normal in first trimester, unspecified ; Spotting in early Start: 06-19-2019 End: 06-20-2019 Patient encounter procedure [facility] Start: 06-19-2019 End: 06-19-2019 Subsequent hospital visit by physician Rochelle ALFRED Laboratory Comment on above: Amenorrhea; Positive urine test; Encounter for supervision of normal in first trimester, unspecified ; Spotting in early Start: 05-09-2019 End: 05-10-2019 Patient encounter procedure KADI ANA [facility] Start: 05-09-2019 End: 05-09-2019 Subsequent hospital visit by physician Rochelle ALRFED Laboratory Start: 11-05-2017 End: 11-07-2017 Evaluation and management of inpatient [facility] Procedures Date Procedure Procedure Detail Performing Clinician Start: 04-26-2020 Acute hepatitis panel D AWN DESTINY Start: 04-26-2020 Antibody hiv-1&hiv-2 single result KADI DESTINY Start: 04-26-2020 Blood count complete automated KADI DESTINY Start: 04-26-2020 Comprehensive metabo lic panel KADI DESTINY Start: 04-26-2020 Gonadotropin chorion ic qualitative KADI DESTINY Start: 04-26-2020 Iadna hepatitis c qu ant & reverse family resource management professor KADI DESTINY Start: 04-26-2020 Acute hepatitis panel E loly Pabon Work Phone: Start: 04-26-2020 Antibody hiv-1&hiv-2 single result Anthony Pabon Work Phone: Start: 04-26-2020 Blood count complete automated Anthony Pabon Work Phone: Start: 04-26-2020 Comprehensive metabo lic panel Anthony Pabon Work Phone: Start: 04-26-2020 Gonadotropin chorion ic qualitative Anthony Pabon Work Phone: Start: 04-26-2020 Urinalysis microscopic only Anthony Pabon Work Phone: Start: 04-26-2020 Urnls dip stick/tabl et rgnt auto w/o microscopy Anthony Pabon Work Phone: Start: 11-20-2019 Antibody hiv-1&hiv-2 single result KADI DESTINY Start: 11-20-2019 Hepatitis c antibody DA WN DESTINY Start: 11-20-2019 Obstetric panel KADI MAYRA [facility] Start: 11-20-2019 Gonadotropin chorion ic quantitative KADI DESTINY Start: 11-20-2019 TYPE AND SCREEN KADI DESTINY Start: 11-20-2019 Antibody screen Rochelle Hoy Start: 11-20-2019 C.TRACHOMATIS N.GONO RRHOEAE DNA, URINE KADI DESTINY Start: 11-20-2019 Culture bacterial quanttative colony count urine KADI DESTINY Start: 11-20-2019 Drug screen, qualitate/multi KADI DESTINY Start: 11-20-2019 Antibody hiv-1&hiv-2 single result Georgette E Pool Work Phone: Start: 11-20-2019 Hepatitis c antibody Ka thleen E Pool Work Phone: Start: 11-20-2019 Obstetric panel Kathlee n E Pool Work Phone: Start: 11-20-2019 Blood typing serologic abo Georgette E Pool Work Phone: Start: 11-20-2019 Gonadotropin chorion ic quantitative Georgette E Pool Work Phone: Start: 11-20-2019 Drug screen, qualitate/multi Georgette E Pool Work Phone: Start: 06-19-2019 Antibody screen Rochelle Willams Start: 06-19-2019 Obstetric panel KADI MAYRA [facility] Start: 06-19-2019 Gonadotropin chorion ic quantitative KADI DESTINY Start: 06-19-2019 Obstetric panel Kathlee n E Pool Work Phone: Start: 06-19-2019 Gonadotropin chorion ic quantitative Georgette E Pool Work Phone: Start: 06-19-2019 Antibody hiv-1&hiv-2 single result KADI DESTINY Start: 06-19-2019 C.TRACHOMATIS N.GONO RRHOEAE DNA, URINE KADI DESTINY Start: 06-19-2019 Culture bacterial quanttative colony count urine KADI DESTINY Start: 06-19-2019 Drug screen, qualitate/multi KADI DESTINY Start: 06-19-2019 Hepatitis c antibody DA WN DESTINY Start: 06-19-2019 TYPE AND SCREEN KADI DESTINY Start: 06-19-2019 Antibody hiv-1&hiv-2 single result Georgette E Pool Work Phone: Start: 06-19-2019 Blood typing serologic abo Georgette E Pool Work Phone: Start: 06-19-2019 Drug screen, qualitate/multi Georgette E Pool Work Phone: Start: 06-19-2019 Hepatitis c antibody Ka thleen E Pool Work Phone: Start: 05-09-2019 Acute hepatitis panel D AWN DESTINY Start: 05-09-2019 Antibody hiv-1&hiv-2 single result KADI DESTINY Start: 05-09-2019 Comprehensive metabo lic panel KADI DESTINY Start: 05-09-2019 Acute hepatitis panel D awn R Destiny Work Phone: Start: 05-09-2019 Comprehensive metabo lic panel Kadi R Destiny Work Phone: Start: 11-06-2017 DISCHARGE PATIENT LUIS E SPICER Start: 11-05-2017 URINE DRUG SCREEN LUIS E BARRIOSPTA Start: 11-05-2017 NURSING COMMUNICATION S VIKA SPICER Start: 11-05-2017 Lipid panel ANGELO BARRIOS RESIDENTIAL AIDE Start: 11-05-2017 DIET GENERAL ANGELO BARRIOS RESIDENTIAL AIDE Start: 11-05-2017 FULL CODE ANGELO BARRIOS RESIDENTIAL AIDE Start: 11-05-2017 IP CONSULT TO HISTOR Y AND PHYSICAL ANGELO BARRIOSPTA Start: 11-05-2017 MISCELLANEOUS NURSIN G CARE ORDER (SPECIFY) ANGELO SPICER Start: 11-05-2017 OFF UNIT PRIVILEGES DONNA SPICER Start: 11-05-2017 PATIENT STATUS (DIRECT) ANGELO SPICER Plan of Treatment Date Care Activity Detail Author Start: 12-12-2021 End: 02-11-2022 CBC W Auto Differential panel - Blood CBC + DIFF Lab Routine Iron deficiency anemia, unspecified iron deficiency anemia type Expected: 12/12/2021, Expires: 02/11/2022 [facility] Work Phone: Comment on above: Expected: 12/12/2021 , Expires: 02/11/2022 Start: 05-18-2021 Influenza vaccination INFLUENZA (#1) [facility] Start: 06-26-2020 Cervical cancer screen Cervical canc er [place] Comment on above: Postponed from 01/11 (Not Indicated) Start: 06-26-2020 Screening for malign ant neoplasm of cervix Cervical cancer screen [place] Comment on above: Postponed from 01/11 (Not Indicated) Start: 05-18-2020 Influenza vaccination Flu vaccine (# 1) [facility] [place] Start: 11-21-2019 End: 11-21-2019 Ancillary Procedure 11/21/2019 Ancillary Procedure Obstetrics and Gynecology [facility] Start: 06-26-2019 End: 06-26-2019 Routine 06/26/2019 Routine Obstetrics and Gynecology Georgette Leung APRN - BRIAN [address] [place] [address] [phone] [facility] INFECTION CONTROL NURSE Start: 05-18-2019 Influenza vaccination Flu vaccine (# 1) [facility] [place] Start: 2015 Cervical cancer screen Cervical canc er screen [place] Start: 2015 PAP TESTING PAP TESTING [facility] Start: 2013 DTaP/Tdap/Td vaccine (1 - Tdap) DTaP/Tdap/Td vaccine (1 - Tdap) [place] Start: 2013 Urine microalbumin profile DTAP,TDAP,TD (1 - Tdap) [facility] Start: 01-12-2012 HEPATITIS C SCREENING HEPATITIS C SC REENING [facility] Start: 01-12-2012 HIV SCREENING HIV SCREENING [facility] Start: 2009 HPV vaccine (1 - Fem larissa 3-dose series) HPV vaccine (1 - Female 3-dose series) [place] Start: 2007 Varicella Vaccine (1 of 2 - 13+ 2-dose series) Varicella Vaccine (1 of 2 - 13+ 2-dose series) [place] Start: 2006 Adult depression screening assessment DEPRESSION SCREENING [facility] Start: 2005 DTaP/Tdap/Td vaccine (1 - Tdap) DTaP/Tdap/Td vaccine (1 - Tdap) [place] Start: 2005 HPV vaccine (1 - 2-d ose series) HPV vaccine (1 - 2-dose series) [place] Start: 2005 HPV vaccine (1 - Fem larissa 2-dose series) HPV vaccine (1 - Female 2-dose series) [place] Start: 01-12-2000 Pneumococcal 0-64 ye ars Vaccine (1 of 1 - PPSV23) Pneumococcal 0-64 years Vaccine (1 of 1 - PPSV23) [place] Start: 1999 COVID-19 VACCINE (1) COVID-19 VACCIN E (1) [facility] Start: 1995 Varicella vaccine (1 of 2 - 2-dose childhood series) Varicella vaccine (1 of 2 - 2-dose childhood series) [place] End: 11-20-2019 Bacteria identified Cx Nom (U) Urine Culture Microbiology Routine Amenorrhea Positive urine test Encounter for supervision of normal in first trimester, unspecified 1 Occurrences starting 11/20/2019 until 11/20/2019 [place] Comment on above: 1 Occurrences starti ng 11/20/2019 until 11/20/2019 Bacteria identified Cx Nom (U) [place] End: 06-19-2019 Bacteria identified Cx Nom (U) Urine Culture Microbiology Routine Amenorrhea Positive urine test Encounter for supervision of normal in first trimester, unspecified 1 Occurrences starting 06/19/2019 until 06/19/2019 [place] Comment on above: 1 Occurrences starti ng 06/19/2019 until 06/19/2019 End: 11-20-2019 C.trachomatis N.gonorrhoeae DNA, Urine C.trachomatis N.gonorrhoeae DNA, Urine Microbiology Routine Amenorrhea Positive urine test Encounter for supervision of normal in first trimester, unspecified 1 Occurrences starting 11/20/2019 until 11/20/2019 [place] Comment on above: 1 Occurrences starti ng 11/20/2019 until 11/20/2019 C.trachomatis N.gonorrhoeae DNA, Urine [place] End: 06-19-2019 C.trachomatis N.gonorrhoeae DNA, Urine C.trachomatis N.gonorrhoeae DNA, Urine Microbiology Routine Amenorrhea Positive urine test Encounter for supervision of normal in first trimester, unspecified 1 Occurrences starting 06/19/2019 until 06/19/2019 [place] Comment on above: 1 Occurrences starti ng 06/19/2019 until 06/19/2019 End: 04-26-2020 Hepatitis C RNA, quantitative, PCR Hepatitis C RNA, quantitative, PCR Lab Routine Once for 1 Occurrences starting 04/26/2020 until 04/26/2020 [place] Comment on above: Once for 1 Occurrenc es starting 04/26/2020 until 04/26/2020 Hepatitis C RNA, quantitative, PCR Hepatitis C RNA, quantitative, PCR Lab Routine 04/26/2020 7:30 AM EDT [place] End: 05-09-2019 HIV Screen HIV Screen Lab Routine Once for 1 Occurrences starting 05/09/2019 until 05/09/2019 [place] Comment on above: Once for 1 Occurrenc es starting 05/09/2019 until 05/09/2019 HIV Screen HIV Screen Lab R outine 05/09/2019 2:53 PM [address] [facility] Lab Routine Amenorrhea Positive urine test Encounter for supervision of normal in first trimester, unspecified 11/20/2019 12:26 PM [facility] Payers Date Payer Category Payer Medicaid [employer] [id number] 2020-Present [phone] [address] [place] [address] Medicaid [id number] 2020 Unknown 2016 Unknown [facility] xxxxxxxxxxxx 2016-Present [phone] [address] [facility] [place] [address] xxxxxxxxxxxx [id number] 1994 Unknown [id number] 1994 Unknown [id number] [id number] 1994 Unknown [id number] [id number] 1994 Unknown [id number] [id number] 1994 Unknown [id number] [id number] 1994 Unknown [id number] 2.16.840.1.066445.3.579.2.593 1994 Unknown [id number] 2.16.840.1.386391.3.579.2.593 1994 Unknown [id number] 2.16.840.1.774636.3.579.2.593 1994 Unknown [id number] 2.16.840.1.489913.3.579.2.593 1994 Unknown [id number] 2.16.840.1.489039.3.579.2.593 1994 Unknown [id number] 2.16.840.1.745330.3.579.2.593 1994 Unknown [id number] 2.16.840.1.854030.3.579.2.593 1994 Unknown [id number] 2.16.840.1.494829.3.579.2.593 1994 Unknown [id number] 2.16.840.1.397261.3.579.2.593 1994 Unknown [id number] 2.16.840.1.667617.3.579.2.593 1994 Unknown [id number] [id number] 9 1994 Unknown [id number] 9 1959 Unknown [id number] Social History Date Type Detail Facility Start: 11-05-2017 End: 10-28-2021 Tobacco smoking status PAIS Never smoker [facility] Start: 11-05-2017 End: 06-19-2019 Alcohol intake No [place] Start: 1994 Sex Assigned At Not on file [place] Start: 06-19-2019 End: 11-20-2019 Tobacco smoking status NHIS Current every day smoker [place] Start: 06-19-2019 End: 11-20-2019 Cigarettes smoked current (pack per day) - Reported [place] Start: 11-20-2019 Alcohol intake Current non-dr sinker winder of alcohol (finding) [place] Start: 05-01-2019 [facility] [place] Start: 11-20-2019 End: 10-28-2021 Tobacco use and exposure Never used [facility] [place] Start: 10-28-2021 End: 11-08-2021 Alcohol intake Ex-drinker (finding) [facility] Clinical Note 08-18-2022 Note Date & Type Note Facility 08-18-2022 Note OPERATIVE NOTE OPERATION DATE: 08/18/2022 PROCEDURE: Suction D AND C. PREOPERATIVE DIAGNOSIS: Missed . POSTOPERATIVE DIAGNOSIS: Missed . ANESTHESIA: General. SURGEON: Yousif Aparicio D.O. SCALE CLERK: None. BLOOD LOSS: 75 mL. URINE OUTPUT: Yellow and clear. SPECIMEN: Products of conception. FINDINGS: Products of conception. PROCEDURE: The patient was taken back to the OR where she was given general anesthesia without difficulty. She was then placed in dorsal lithotomy position, prepped and draped in the normal sterile fashion. A weighted speculum was placed in the patient's vagina and the anterior lip of the cervix was identified and grasped with a single-tooth tenaculum. The patient was then gently dilated using Hegar dilators after we had sounded roughly to 11 cm. The suction curette was then tested. The suction curette was then placed in the patient's uterus and products of conception were removed using a 10-Pashto suction curette. Excellent hemostasis was noted. The patient tolerated the procedure well. Sponge, lap, and needle counts were correct x 2. All instruments were then removed from the patient's vagina. The patient was taken to the Recovery Room in stable condition. ?? [facility] Note 12-12-2021 Telephone Encounter - Angelia Almazan - 12/12/2021 11:16 AM EDT Note Date & Type Note Facility 12-12-2021 Miscellaneous Notes Pleases sign pending new cbc order. Thanks, Angelia Almazan MA documented in this encounter [facility] Progress note 11-08-2021 Note Date & Type Note Facility 11-08-2021 Note HNO ID: [id number] Author: King Suazo MD Service: ? Author Type: Physician Type: Progress Notes Filed: 11/08/2021 3:47 PM Note Text: PATIENT NAME: Noe Ervin DATE: 11/08/2021 PRIMARY CARE PHYSICIAN: Dr. Rodo Menchaca OTHER PHYSICIANS: Dr. Yousif Aparicio HPI: This is a 26 year old female, currently in her third trimester of , referred for management of iron deficiency anemia. Apparently the patient was initially discovered to be anemic after the delivery of her first child in November 2013. She recalls receiving a blood transfusion after the delivery, and needed no further treatment. She had a second child without any mention of anemia. She is currently with her third child, set to deliver sometime in the next few weeks. Earlier in the , May 2021, labs revealed hemoglobin of 9.9 with a low MCV. She was started on vitamins with iron. On 10/11/2021 she developed severe shortness of breath, and is seen at [place] emergency room. Labs revealed a hemoglobin of 6.5 with a markedly low MCV. She was given a blood transfusion x2. She subsequently received IV Injectafer on 10/19/2021 and again on 10/26/2021. Since then she has felt much better. She had ice craving which are improving. Shortness of breath has resolved. Severe fatigue and weakness are slowly improving. 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 She has hepatitis C, but has not received treatment. She has a history of fibromyalgia for which she takes gabapentin. On review of systems she has had no unusual weight loss. No evidence of abnormal bleeding. No change in bowel habits. MEDICATIONS: Current Outpatient Medications Medication Sig - gabapentin (NEURONTIN) 400 mg capsule Take by mouth. - Polysaccharide Iron Complex 180 mg iron cap Take by mouth. - aspirin 81 mg cap Take 81 mg by mouth once daily. - ONDANSETRON HCL ORAL Take 4 mg by mouth as needed. No current facility-administered medications for this visit. ALLERGIES: ALLERGIES No Known Allergies PAST MEDICAL HISTORY: PAST MEDICAL HISTORY Diagnosis Date - Anemia - Anxiety - Bacterial vaginitis - Bipolar 1 disorder (HCC) - Fibromyalgia - IBS (irritable bowel syndrome) - Insomnia - Opioid abuse (HCC) - diabetes Prior PAST SURGICAL HISTORY: No past surgical history on file. FAMILY HISTORY: No family history on file. SOCIAL HISTORY: Social History Tobacco Use - Smoking status: Never Smoker - Smokeless tobacco: Not on file Substance Use Topics - Alcohol use: Not Currently - Drug use: Not on file COMPLETE REVIEW OF SYSTEMS: CONSTITUTION: Negative for pain, fatigue, weight loss, or appetite loss. EENT: Negative for mouth soreness, antibiotics use, epistaxis, visual problems, neck or facial swelling, fever/chills, bleeding gums, or hearing loss. CV: Negative for edema, calf swelling, palpitations, or chest pain. RESPIRATORY: Negative for cough, SOB, hemoptysis, or wheezing. GI: Negative for nausea/vomiting, heartburn, vomiting blood, dysphasia, diarrhea, blood in stool, constipation, early satiety, PICA, vegetarian, poor nutrition, abdominal fullness, or abdominal pain. NEUROLOGICAL: Negative for numbness/tingling, dizziness, gait disturbance, headache, speech disturbance, tremor, hemiparesis/sensory loss, or change in mental status. MUSCULOSKELETAL: Negative for joint pain, joint swelling, or proximal muscle weakness. SKIN: Negative for hair loss, bruising, nail changes, rash, itching, pallor, or jaundice. ENDO/URO: Negative for hot flashes, cold or heat intolerance, urinary frequency, urinary hesitancy, menorrhagia, or hematuria. PSYCH: Negative for anxiety, depression, or other. PHYSICAL EXAM: BP 127/70 Pulse 108 Temp 36.5 ?C (97.7 ?F) (Temporal) Resp 16 Wt 93.4 kg (205 lb 12.8 oz) SpO2 99% GENERAL EXAM: Well developed/well nourished; in no acute distress. SKIN: Negative for lesions, rashes, or ulcers on the upper and lower extremities and face. Negative for palpations/nodules, purpura, and ecchymosis. EENT: Negative for conjunctiva, mucosal pallor, JVD, LAP, thyromegaly, and glossitis. Supple AND PERRL. EXTREMITIES: Negative for cyanosis, clubbing, and crepitus. LUNGS: Negative to auscultation, respiratory effort, and percussion. CARDIOVASCULAR: Regular rate. Negative for murmurs/S3S4/abnormal sounds, edema, and carotid bruits. ABDOMEN: 8 months gestational abdomen. No tenderness or masses. RECTAL: Not done PSYCHIATRIC: Negative for mood/affect changes, recent AND remote memory changes, and judgement and insight. NEUROLOGICAL: Alert, oriented x person, place, time. Cranial nerves 2-12 intact. Sensory for pain, light touch, vibration intact on all 4 extremities. Reflexes symmetric for biceps/brachioradial/patella/achilles. MUSCULOSKELETAL: Neg (more content not included)... [facility] Evaluation note Note Date & Type Note Facility Evaluation note Diagnosis Iron deficiency anemia, unspecified iron deficiency anemia type- Primary documented in this encounter [facility] Summary Purpose Family History No Family History Records FoundNo Family History Records FoundNo Family History Records FoundNo Family History Records FoundNo Family History Records FoundNo Family History Records Found Advance Directives No Advanced Directives Records FoundDocuments on File Type Date Recorded Patient Neuroradiologist Expl anation Advance Directives and Living Will Power of Clin Application Specialist Latest Code Status on File Code Status Date Activated Date Inactivated Comments Full Code 11/05/2017 6:51 AM 11/07/2017 2:59 PM Assessments Diagnosis History of miscarriage, currently Amenorrhea Absence of menstruation Positive urine test Encounter for supervision of normal in first trimester, unspecified Spotting in early Spotting complicating , antepartum condition or complication Diagnosis Amenorrhea Absence of menstruation Positive urine test Encounter for supervision of normal in first trimester, unspecified Spotting in early Spotting complicating , antepartum condition or complication Additional Source Comments INFORMATION SOURCE (unrecogn ized section and content) DATE CREATED AUTHOR 03/08/2018 [facility] DATE CREATED AUTHOR AUTHOR'S ORGANIZ ATION 04/08/2020 [facility] DATE CREATED AUTHOR AUTHOR'S ORGANIZ ATION 04/28/2020 [facility] DATE CREATED AUTHOR AUTHOR'S ORGANIZ ATION 12/13/2021 [facility] DATE CREATED AUTHOR AUTHOR'S ORGANIZ ATION 12/25/2022 [facility] DATE CREATED AUTHOR AUTHOR'S ORGANIZ ATION 08/23/2023 [facility] EPIC Source Comments (unrecognize d section and content) In the event this informatio n is protected by the Federal Confidentiality of Alcohol and Drug Abuse Patient Records regulations: The Federal rules restrict any use of the information to criminally investigate or prosecute any alcohol or drug abuse patient.[facility] the event this information is protected by the Federal Confidentiality of Alcohol and Drug Abuse Patient Records regulations: The Federal rules restrict any use of the information to criminally investigate or prosecute any alcohol or drug abuse patient.[facility] Reason for Visit (unrecogniz ed section and content) Reason Comments Lab Orders Care Teams (unrecognized sec tion and content) Hammer Adjuster Relationship Specialty Start Date End Date Rodo Menchaca [address] [place] [address] PCP - General Family Practice 11/08/21 FOR RECORDS PERTAINING TO PATIENTS WHO ARE OR HAVE BEEN ENROLLED IN A CHEMICAL DEPENDENCY/SUBSTANCEABUSE PROGRAM, SOME INFORMATION MAY BE OMITTED. This clinical summary was aggregated from multiple sources. Caution should be exercised in using it in the provision of clinical care. This summary normalizes information from multiple sources, and as a consequence, information in this document may materially change the coding, format and clinical context of patient data. In addition, data may be omitted in some cases. CLINICAL DECISIONS SHOULD BE BASED ON THE PRIMARY CLINICAL RECORDS. [facility] provides no warranty or guarantee of the accuracy or completeness of information in this document.
== END 2023-09-05 15:15 | disposition home or self-care (01) ==
LOC: US 15:14
PROVIDERS: Visit Provider Obstetrics & Gynecology
DX: O26.849 Uterine size-date discrepancy, unspecified trimester (principal); Z3A.30 30 weeks gestation of pregnancy
CPT/HCPCS: 76816

== ENCOUNTER 2023-09-06 18:31 | Emergency (ER) | payer OTHER, SELFPAY ==
[2023-09-06 18:36] VITALS: BP 100/63; PULSE 72; RESP 20; TEMP 36.7; O2SAT 97; BMI 28.7
--- OUTSIDE RECORDS SUMMARY | 2023-09-06 18:41 | XMS_ITS | CCD ---
Author Name Unknown Address [id number] [place] [address] Organization [facility] Care Team Providers Care Obstetrical Nurse Name Role Phone ANGELO SPICER Unavailable Unavailable LIGIA SPICEREEP Unavailable Unavailable ROCHELLE WILLAMS Unavailable Unavailable Rochelle Willams Primary Care Provider Lima Cornell Attending Unavailab le Rochelle Willams Primary Care Provider KADI DIXON Referring Unavailable ROCHELLE WILLAMS Primary [...] Unavailable NADERER, DR RODO Dickerson Admitting Unavailable [facility] Primary Care Unavaila ble GRECHNY ., ADELITA ORELLANA Consulting Unavailluis CAMARILLO, MYLES Alex Consulting Unavailable GAYE, GURU Consulting Unavailable ROBERTA, ALIX Consulting Unavailable LINA, KAMILLA Consulting Unavailable SISTER, DANIELA Consulting Unavailable ROBBY ., DR MENENDEZ Consulting Unavailable [facility] Primary Care Unavaila ble ROBBY ., DR MENENDEZ Attending Unavailable ROBBY ., DR MENENDEZ Admitting Unavailable ELENITA, NGOC Consulting Unavailable GEMBUS, AUGUSTUS Consulting Unavailable [facility] Primary Care Unavaila ble ROBBY ., DR MENENDEZ Consulting Unavailable ROBBY ., DR MENENDEZ Attending Unavailable ROBBY ., DR MENENDEZ Admitting Unavailable ZIEBER, DR CHRISTINE Benites Consulting Unavailable ROBBY ., DR MENENDEZ Consulting Unavailable [facility] Primary Care Unavaila ble ROBBY ., DR [...] Propensity to adverse reactions to drug (disorder) [facility] Repository Medications Current Medications Medication Drug Class(es) [...] Onset: 11-05-2017 Other aftercare (1 source) Other long term care social worker (current) drug therapy; Translations: [OTH INTERMEDIATE CURRENT DRUG THERAPY] Onset: 12-25-2022 Episodic Other [...] F Trimethoprim/Sulfamet hoxazole >=320 R F Normal [facility] Comment on above: Performed By: #### C BC #### [facility] [address] [place] [address] Dr. Hemanth Kerr CBC AUTO DIFFon 11-29-2022 BASO # 0.0 103/ul Normal 0.0-0.1 [facility] Comment on above: Performed By: #### C BC #### [facility] [address] [address] [address] Hemanth Kerr Basophils/100 WBC (Bld) 0.7 % Normal 0.2-2.0 [facility] Comment on above: Performed By: #### C BC #### [facility] [address] [address] [address] Hemanth Kerr EO # 0.2 103/ul Normal 0.0-0.7 [facility] Comment on above: Performed By: #### C BC #### [facility] [address] [address] [address] Hemanth Kerr Eosinophils/100 WBC (Bld) 3.3 % Normal 0.9-7.0 [facility] Comment on above: Performed By: #### C BC #### [facility] [address] [place] [address] Dr. Hemanth Kerr Erythrocyte distribution width (RBC) [Ratio] 14.3 % Normal 11.0-15.0 [facility] Comment on above: Performed By: #### C BC #### [facility] [address] [place] [address] Dr. Hemanth Kerr Hematocrit (Bld) [Volume fraction] 37.2 % Normal 36.0-48.0 [facility] Comment on above: Performed By: #### C BC #### [facility] [address] [place] [address] Dr. Hemanth Kerr Hemoglobin (Bld) [Mass/Vol] 11.9 g/dL Critically low 12.0-16.0 [facility] Comment on above: Performed By: #### C BC #### [facility] [address] [place] [address] Dr. Hemanth Kerr IG # 0.01 10e3/ul Normal 0.00-0.03 [facility] Comment on above: Performed By: #### C BC #### [facility] [address] [place] [address] Dr. Hemanth Kerr IG % 0.2 % Normal 0.0-0.5 [facility] Comment on above: Performed By: #### C BC #### [facility] [address] [place] [address] Dr. Hemanth Kerr LYMPH # 1.7 103/ul Normal 1.2-3.8 [facility] Comment on above: Performed By: #### C BC #### [facility] [address] [place] [address] Dr. Hemanth Kerr Lymphocytes/100 WBC (Bld) 31.3 % Normal 20.5-60.0 [facility] Comment on above: Performed By: #### C BC #### [facility] [address] [place] [address] Dr. Hemanth Kerr MANUAL DIFF REQ NO Normal [facility] Comment on above: Performed By: #### C BC #### [facility] [address] [place] [address] Dr. Hemanth Kerr MCH (RBC) [Entitic mass] 27.8 pg Normal 26.7-34.0 [facility] Comment on above: Performed By: #### C BC #### [facility] [address] [place] [address] Dr. Hemanth Kerr MCHC (RBC) [Mass/Vol] 32.0 g/dL Normal 29.9-35.2 [facility] Comment on above: Performed By: #### C BC #### [facility] [address] [place] [address] Dr. Hemanth Kerr MCV (RBC) [Entitic vol] 86.9 fL Normal 81.0-99.0 [facility] Comment on above: Performed By: #### C BC #### [facility] [address] [place] [address] Dr. Hemanth Kerr MONO # 0.4 103/ul Normal 0.3-0.8 [facility] Comment on above: Performed By: #### C BC #### [facility] [address] [place] [address] Dr. Hemanth Kerr Monocytes/100 WBC (Bld) 8.0 % Normal 1.7-12.0 [facility] Comment on above: Performed By: #### C BC #### [facility] [address] [place] [address] Dr. Hemanth Kerr NEUT # 3.1 103/ul Normal 1.4-6.5 [facility] Comment on above: Performed By: #### C BC #### [facility] [address] [place] [address] Dr. Hemanth Kerr Neutrophils/100 WBC (Bld) 56.5 % Normal 43.0-75.0 [facility] Comment on above: Performed By: #### C BC #### [facility] [address] [place] [address] Dr. Hemanth Kerr Platelet mean volume (Bld) [Entitic vol] 10.3 fL Normal 9.5-13.5 [facility] Comment on above: Performed By: #### C BC #### [facility] [address] [place] [address] Dr. Hemanth Kerr PLT 258 103/ul Normal 150-450 [facility] Comment on above: Performed By: #### C BC #### [facility] [address] [place] [address] Dr. Hemanth Kerr RBC 4.28 106/ul Normal 4.20-5.40 [facility] Comment on above: Performed By: #### C BC #### [facility] [address] [place] [address] Dr. Hemanth Kerr WBC 5.4 103/ul Normal 4.0-11.0 [facility] Comment on above: Performed By: #### C BC #### [facility] [address] [place] [address] Dr. Hemanth Kerr PROF 14(COMP METB)on 023 Albumin [Mass/Vol] 3.1 g/dL Critically low 3.4-5.0 [facility] Comment on above: Performed By: #### C MP #### [facility] [address] [place] [address] Dr. Hemanth Kerr Albumin/Globulin [Mass ratio] 1.3 {ratio} Normal [facility] Comment on above: Performed By: #### C MP #### [facility] [address] [address] [address] Hemanth Kerr ALP [Catalytic activity/Vol] 56 U/L Normal 46-116 [facility] Comment on above: Performed By: #### C MP #### [facility] [address] [place] [address] Dr. Hemanth Kerr ALT [Catalytic activity/Vol] 34 U/L Normal 14-59 [facility] Comment on above: Performed By: #### C MP #### [facility] [address] [place] [address] Dr. Hemanth Kerr Anion gap [Moles/Vol] 7.0 mmol/L Normal [facility] Comment on above: Performed By: #### C MP #### [facility] [address] [place] [address] Dr. Hemanth Kerr AST [Catalytic activity/Vol] 29 U/L Normal 15-37 [facility] Comment on above: Performed By: #### C MP #### [facility] [address] [place] [address] Dr. Hemanth Kerr Bilirubin [Mass/Vol] 0.4 mg/dL Normal 0.2-1.0 [facility] Comment on above: Performed By: #### C MP #### [facility] [address] [place] [address] Dr. Hemanth Kerr Calcium [Mass/Vol] 8.3 mg/dL Critically low 8.5-10.1 [facility] Comment on above: Performed By: #### C MP #### [facility] [address] [place] [address] Dr. Hemanth Kerr Chloride [Moles/Vol] 110 mmol/L Critically high 98-107 [facility] Comment on above: Performed By: #### C MP #### [facility] [address] [place] [address] Dr. Hemanth Kerr CO2 [Moles/Vol] 27.6 mmol/L Normal 21.0-32.0 [facility] Comment on above: Performed By: #### C MP #### [facility] [address] [place] [address] Dr. Hemanth Kerr Creatinine [Mass/Vol] 0.61 mg/dL Normal 0.55-1.02 [facility] Comment on above: Performed By: #### C MP #### [facility] [address] [address] [address] Hemanth Kerr EGFR-AF CYMRAES >60 Normal >=60 [facility] Comment on above: Performed By: #### C MP #### [facility] [address] [address] [address] Hemanth Kerr EGFR-NON AF CYMRAES >60 Normal >=60 [facility] Comment on above: Performed By: #### C MP #### [facility] [address] [address] [address] Hemanth Kerr Globulin (S) [Mass/Vol] 2.4 g/dL Normal [facility] Comment on above: Performed By: #### C MP #### [facility] [address] [address] [address] Hemanth Kerr Glucose [Mass/Vol] 110 mg/dL Critically high 74-106 [facility] Comment on above: Performed By: #### C MP #### [facility] [address] [address] [address] Hemanth Kerr Potassium [Moles/Vol] 2.6 mmol/L Critically low 3.5-5.1 [facility] Comment on above: Performed By: #### C MP #### [facility] [address] [address] [address] Hemanth Kerr Protein [Mass/Vol] 5.5 g/dL Critically low 6.4-8.2 [facility] Comment on above: Performed By: #### C MP #### [facility] [address] [address] [address] Hemanth Kerr Sodium [Moles/Vol] 142 mmol/L Normal 136-145 [facility] Comment on above: Performed By: #### C MP #### [facility] [address] [address] [address] Hemanth Kerr Urea nitrogen [Mass/Vol] 12.0 mg/dL Normal 7.0-18.0 [facility] Comment on above: Performed By: #### C MP #### [facility] [address] [address] [address] Hemanth Kerr Urea nitrogen/Creatinine [Mass ratio] 19.7 mg/mg Normal [facility] Comment on above: Performed By: #### C MP #### [facility] [address] [address] [address] Hemanth Kerr XR HIP LT 2 [...] ALIX GRANADOS Date: 2022-11-28 22:13 Normal [facility] ACETAMINOPHENon 11-28-2022 Acetaminophen [Mass/Vol] ug/mL Critically low 10.0-30.0 [facility] Comment on above: Performed By: #### C MP #### [facility] [address] [place] [address] Dr. Hemanth Kerr ACETONE SERUMon 11-28-2022 ACETONE Negative Normal NEGATIVE [facility] Comment on above: Performed By: #### P REG #### [facility] [address] [address] [address] Hemanth Kerr AMMONIAon 11-28-2022 Ammonia (P) [Moles/Vol] 24 umol/L Normal 11-32 [facility] Comment on above: Performed By: #### L ACT #### [facility] [address] [address] [address] Hemanth Kerr CBC AUTO DIFFon 11-28-2022 BASO # 0.0 103/ul Normal 0.0-0.1 [facility] Comment on above: Performed By: #### L ACT #### [facility] [address] [address] [address] Hemanth Kerr Basophils/100 WBC (Bld) 0.4 % Normal 0.2-2.0 [facility] Comment on above: Performed By: #### L ACT #### [facility] [address] [address] [address] Hemanth Kerr EO # 0.3 103/ul Normal 0.0-0.7 [facility] Comment on above: Performed By: #### L ACT #### [facility] [address] [place] [address] Dr. Hemanth Kerr Eosinophils/100 WBC (Bld) 3.1 % Normal 0.9-7.0 [facility] Comment on above: Performed By: #### L ACT #### [facility] [address] [place] [address] Dr. Hemanth Kerr Erythrocyte distribution width (RBC) [Ratio] 14.3 % Normal 11.0-15.0 [facility] Comment on above: Performed By: #### L ACT #### [facility] [address] [place] [address] Dr. Hemanth Kerr Hematocrit (Bld) [Volume fraction] 41.3 % Normal 36.0-48.0 [facility] Comment on above: Performed By: #### L ACT #### [facility] [address] [place] [address] Dr. Hemanth Kerr Hemoglobin (Bld) [Mass/Vol] 13.3 g/dL Normal 12.0-16.0 [facility] Comment on above: Performed By: #### L ACT #### [facility] [address] [place] [address] Dr. Hemanth Kerr IG # 0.02 10e3/ul Normal 0.00-0.03 [facility] Comment on above: Performed By: #### L ACT #### [facility] [address] [place] [address] Dr. Hemanth Kerr IG % 0.2 % Normal 0.0-0.5 [facility] Comment on above: Performed By: #### L ACT #### [facility] [address] [place] [address] Dr. Hemanth Kerr LYMPH # 2.4 103/ul Normal 1.2-3.8 [facility] Comment on above: Performed By: #### L ACT #### [facility] [address] [place] [address] Dr. Hemanth Kerr Lymphocytes/100 WBC (Bld) 26.3 % Normal 20.5-60.0 [facility] Comment on above: Performed By: #### L ACT #### [facility] [address] [place] [address] Dr. Hemanth Kerr MANUAL DIFF REQ NO Normal [facility] Comment on above: Performed By: #### L ACT #### [facility] [address] [place] [address] Dr. Hemanth Kerr MCH (RBC) [Entitic mass] 27.4 pg Normal 26.7-34.0 [facility] Comment on above: Performed By: #### L ACT #### [facility] [address] [place] [address] Dr. Hemanth Kerr MCHC (RBC) [Mass/Vol] 32.2 g/dL Normal 29.9-35.2 [facility] Comment on above: Performed By: #### L ACT #### [facility] [address] [place] [address] Dr. Hemanth Kerr MCV (RBC) [Entitic vol] 85.0 fL Normal 81.0-99.0 [facility] Comment on above: Performed By: #### L ACT #### [facility] [address] [place] [address] Dr. Hemanth Kerr MONO # 0.7 103/ul Normal 0.3-0.8 [facility] Comment on above: Performed By: #### L ACT #### [facility] [address] [place] [address] Dr. Hemanth Kerr Monocytes/100 WBC (Bld) 7.3 % Normal 1.7-12.0 [facility] Comment on above: Performed By: #### L ACT #### [facility] [address] [place] [address] Dr. Hemanth Kerr NEUT # 5.7 103/ul Normal 1.4-6.5 [facility] Comment on above: Performed By: #### L ACT #### [facility] [address] [address] [address] Hemanth Kerr Neutrophils/100 WBC (Bld) 62.7 % Normal 43.0-75.0 [facility] Comment on above: Performed By: #### L ACT #### [facility] [address] [address] [address] Hemanth Kerr Platelet mean volume (Bld) [Entitic vol] 10.6 fL Normal 9.5-13.5 [facility] Comment on above: Performed By: #### L ACT #### [facility] [address] [address] [address] Hemanth Kerr PLT 347 103/ul Normal 150-450 [facility] Comment on above: Performed By: #### L ACT #### [facility] [address] [place] [address] Dr. Hemanth Kerr RBC 4.86 106/ul Normal 4.20-5.40 [facility] Comment on above: Performed By: #### L ACT #### [facility] [address] [place] [address] Dr. Hemanth Kerr WBC 9.1 103/ul Normal 4.0-11.0 [facility] Comment on above: Performed By: #### L ACT #### [facility] [address] [place] [address] CSPINE WO CONon [...] KAMILLA MILLS Date: 2022-11-28 17:54 Normal [facility] CT HEAD WO CONon 11-28-2022 CT [...] KAMILLA MILLS Date: 2022-11-28 18:40 Normal [facility] CULTURE BLOODon 11-28-2022 Microscopic examination of blood, culture Culture Observations: NO GROWTH AT 5 DAYS. Normal [facility] Comment on above: Performed By: #### C BC #### [facility] [address] [place] [address] Dr. Hemanth Kerr Microscopic examination of blood, culture Culture Observations: NO GROWTH AT 5 DAYS. Normal [facility] Comment on above: Performed By: #### B [id number] #### [facility] [address] [place] [address] Dr. Hemanth Kerr [facility] 11-15 SARS-CoV-2 (COVID-19) RNA ELMO+probe Ql (Unsp spec) Not detected Normal NOT DETECTED [facility] Comment on above: Result Comment: When [...] for this test is supported by the [place] of Health and Human Service's declaration that [...] used). Performed By: #### L ACT #### [facility] [address] [place] [address] Dr. Hemanth Kerr DRUG SCREEN RAPID (URINE)on 11-28-2022 AMP Positive Abnormal NEGATIVE [facility] Comment on above: Performed By: #### P REG #### [facility] [address] [place] [address] Dr. Hemanth Kerr BAR Negative Normal NEGATIVE [facility] Comment on above: Performed By: #### P REG #### [facility] [address] [place] [address] Dr. Hemanth Kerr BUP Negative Normal NEGATIVE [facility] Comment on above: Performed By: #### P REG #### [facility] [address] [place] [address] Dr. Hemanth Kerr BZO Negative Normal NEGATIVE [facility] Comment on above: Performed By: #### P REG #### [facility] [address] [place] [address] Dr. Hemanth Kerr YOLANDA Negative Normal NEGATIVE [facility] Comment on above: Performed By: #### P REG #### [facility] [address] [place] [address] Dr. Hemanth Kerr CUT-OFFS SEE BELOW Normal [facility] Comment on above: Result Comment: AMP (Amphetamine): 500ng/mL, BAR (Barbituates): 200 ng/mL, BZO (Benzodiazepines): 150 ng/mL, BUP (Buprenorphine): 10 ng/mL, YOLANDA (Cocaine): 150 ng/mL, mAMP (Methamphetamine): 500 ng/mL, MTD (Methadone): 200 ng/mL, OPI (Opiates): 100 ng/mL, OXY (Oxycodone): 100 ng/mL, PCP (Phencyclidine): 25 ng/mL, PPX (Propoxyphene): 300 ng/mL, THC (Cannabinoids): 50 ng/mL, TCA (Trycyclic Antidepressants): 300 ng/mL Performed By: #### P REG #### [facility] [address] [place] [address] Dr. Hemanth Kerr DRUG CUT HEADER DRUG CLASS TEST SYSTEM CUT-OFF CONCENTRATIONS ARE FOLLOWS: Normal [facility] Comment on above: Performed By: #### P REG #### [facility] [address] [place] [address] Dr. Hemanth Kerr mAMP Positive Abnormal NEGATIVE [facility] Comment on above: Performed By: #### P REG #### [facility] [address] [place] [address] Dr. Hemanth Kerr MTD Negative Normal NEGATIVE [facility] Comment on above: Performed By: #### P REG #### [facility] [address] [place] [address] Dr. Hemanth Kerr OPI Negative Normal NEGATIVE [facility] Comment on above: Performed By: #### P REG #### [facility] [address] [place] [address] Dr. Hemanth Kerr OXY Negative Normal NEGATIVE [facility] Comment on above: Performed By: #### P REG #### [facility] [address] [place] [address] Dr. Hemanth Kerr PCP Negative Normal NEGATIVE [facility] Comment on above: Performed By: #### P REG #### [facility] [address] [place] [address] Dr. Hemanth Kerr PPX Negative Normal NEGATIVE [facility] Comment on above: Performed By: #### P REG #### [facility] [address] [place] [address] Dr. Hemanth Kerr TCA Negative Normal NEGATIVE [facility] Comment on above: Performed By: #### P REG #### [facility] [address] [place] [address] Dr. Hemanth Kerr THC Negative Normal NEGATIVE [facility] Comment on above: Performed By: #### P REG #### [facility] [address] [place] [address] Dr. Hemanth Kerr ER URINE PROFILEon 3 Bilirubin Ql (U) Negative Normal NEGATIVE [facility] Comment on above: Performed By: #### P REG #### [facility] [address] [place] [address] Dr. Hemanth Kerr Clarity (U) CLEAR Normal CLEAR [facility] Comment on above: Performed By: #### P REG #### [facility] [address] [place] [address] Dr. Hemanth Kerr Color (U) LT. YELLOW Normal YELLOW [facility] Comment on above: Performed By: #### P REG #### [facility] [address] [place] [address] Dr. Hemanth HOLMAN A micrscopic examination will be performed if indicated. Normal [facility] Comment on above: Performed By: #### P REG #### [facility] [address] [place] [address] Dr. Hemanth Kerr Glucose Ql (U) Negative Normal NEGATIVE [facility] Comment on above: Performed By: #### P REG #### [facility] [address] [place] [address] Dr. Hemanth Kerr Hemoglobin Ql (U) Negative Normal NEGATIVE [facility] Comment on above: Performed By: #### P REG #### [facility] [address] [place] [address] Dr. Hemanth Kerr Ketones Ql (U) Negative Normal NEGATIVE [facility] Comment on above: Performed By: #### P REG #### [facility] [address] [place] [address] Dr. Hemanth Kerr LEUKOCYTES Negative Normal NEGATIVE [facility] Comment on above: Performed By: #### P REG #### [facility] [address] [place] [address] Dr. Hemanth Kerr Nitrite Ql (U) Positive Abnormal NEGATIVE [facility] Comment on above: Performed By: #### P REG #### [facility] [address] [place] [address] Dr. Hemanth Kerr pH (U) 7.5 [pH] Normal 5-9 [facility] Comment on above: Performed By: #### P REG #### [facility] [address] [place] [address] Dr. Hemanth Kerr SPEC GRAVITY 1.020 Normal 1.005-<=1.025 [facility] Comment on above: Performed By: #### P REG #### [facility] [address] [place] [address] Dr. Hemanth Kerr UA PROTEIN TRACE Normal NEGATIVE/ TRACE [facility] Comment on above: Performed By: #### P REG #### [facility] [address] [place] [address] Dr. Hemanth Kerr UR MICRO IND INDICATED Normal [facility] Comment on above: Performed By: #### P REG #### [facility] [address] [place] [address] Dr. Hemanth Kerr Urobilinogen Qn (U) 1.0 {Jose'U}/dL Normal 0.2 - 1. 0 [facility] Comment on above: Performed By: #### P REG #### [facility] [address] [place] [address] Dr. Hemanth Kerr ETHANOL (BLD ALC)on 11-29-19 23 ALC NOTE NOTE: 80 mg/dl is th e legal limit for a blood alcohol level Normal [facility] Comment on above: Performed By: #### C MP #### [facility] [address] [place] [address] Dr. Hemanth Kerr Ethanol [Mass/Vol] mg/dL Normal [facility] Comment on above: Performed By: #### C MP #### [facility] [address] [place] [address] Dr. Hemanth Kerr LACTATE/LACTIC ACIDon 2022 Lactate [Moles/Vol] 0.7 mmol/L Normal 0.4-2.0 [facility] Comment on above: Performed By: #### L ACT #### [facility] [address] [address] [address] Hemanth Kerr Lactate [Moles/Vol] 9.0 mmol/L Critically high 0.4-2.0 [facility] Comment on above: Performed By: #### L ACT #### [facility] [address] [address] [address] Hemanth Kerr PH VENOUS BLOODon 11-28-2022 PCO2 VENOUS 36.6 mmHg Critically low 40.0-52.0 [facility] Comment on above: Performed By: #### P HVEN #### [facility] [address] [place] [address] Dr. Hemanth Kerr pH VENOUS 7.354 Normal 7.330-7.430 [facility] Comment on above: Performed By: #### P HVEN #### [facility] [address] [place] [address] Dr. Hemanth Kerr POINT OF CARE GLUCOSEon 11-15 Glucose [Mass/Vol] 127 mg/dL Critically high 74-106 [facility] Comment on above: Performed By: #### C BC #### [facility] [address] [place] [address] Dr. Hemanth Kerr PREG HCG QUALon 11-28-2022 , QUAL Negative Normal NEGATIVE [facility] Comment on above: Performed By: #### P REG #### [facility] [address] [place] [address] Dr. Hemanth Kerr PROF 14(COMP METB)on 023 Albumin [Mass/Vol] 3.7 g/dL Normal 3.4-5.0 [facility] Comment on above: Performed By: #### L ACT #### [facility] [address] [place] [address] Dr. Hemanth Kerr Albumin/Globulin [Mass ratio] 1.3 {ratio} Normal [facility] Comment on above: Performed By: #### L ACT #### [facility] [address] [address] [address] Hemanth Kerr ALP [Catalytic activity/Vol] 72 U/L Normal 46-116 [facility] Comment on above: Performed By: #### L ACT #### [facility] [address] [address] [address] Hemanth Kerr ALT [Catalytic activity/Vol] 42 U/L Normal 14-59 [facility] Comment on above: Performed By: #### L ACT #### [facility] [address] [address] [address] Hemanth Kerr Anion gap [Moles/Vol] 16.3 mmol/L Normal [facility] Comment on above: Performed By: #### L ACT #### [facility] [address] [place] [address] Dr. Hemanth Kerr AST [Catalytic activity/Vol] 45 U/L Critically high 15-37 [facility] Comment on above: Performed By: #### L ACT #### [facility] [address] [place] [address] Dr. Hemanth Kerr Bilirubin [Mass/Vol] 0.4 mg/dL Normal 0.2-1.0 [facility] Comment on above: Performed By: #### L ACT #### [facility] [address] [place] [address] Dr. Hemanth Kerr Calcium [Mass/Vol] 8.8 mg/dL Normal 8.5-10.1 [facility] Comment on above: Performed By: #### L ACT #### [facility] [address] [place] [address] Dr. Hemanth Kerr Chloride [Moles/Vol] 107 mmol/L Normal 98-107 [facility] Comment on above: Performed By: #### L ACT #### [facility] [address] [address] [address] Hemanth Kerr CO2 [Moles/Vol] 21.8 mmol/L Normal 21.0-32.0 [facility] Comment on above: Performed By: #### L ACT #### [facility] [address] [place] [address] Dr. Hemanth Kerr Creatinine [Mass/Vol] 1.32 mg/dL Critically high 0.55-1.02 [facility] Comment on above: Performed By: #### L ACT #### [facility] [address] [address] [address] Hemanth Kerr EGFR-AF CYMRAES 58 mL/min/1.73m2 Critically low >=60 [facility] Comment on above: Performed By: #### L ACT #### [facility] [address] [address] [address] Hemanth Kerr EGFR-NON AF CYMRAES 48 mL/min/1.73m2 Critically low >=60 [facility] Comment on above: Performed By: #### L ACT #### [facility] [address] [place] [address] Dr. Hemanth Kerr Globulin (S) [Mass/Vol] 2.9 g/dL Normal [facility] Comment on above: Performed By: #### L ACT #### [facility] [address] [address] [address] Hemanth Kerr Glucose [Mass/Vol] 143 mg/dL Critically high 74-106 [facility] Comment on above: Performed By: #### L ACT #### [facility] [address] [address] [address] Hemanth Kerr Potassium [Moles/Vol] 3.1 mmol/L Critically low 3.5-5.1 [facility] Comment on above: Performed By: #### L ACT #### [facility] [address] [address] [address] Hemanth Kerr Protein [Mass/Vol] 6.6 g/dL Normal 6.4-8.2 [facility] Comment on above: Performed By: #### L ACT #### [facility] [address] [address] [address] Hemanth Kerr Sodium [Moles/Vol] 142 mmol/L Normal 136-145 [facility] Comment on above: Performed By: #### L ACT #### [facility] [address] [place] [address] Dr. Hemanth Kerr Urea nitrogen [Mass/Vol] 17.0 mg/dL Normal 7.0-18.0 [facility] Comment on above: Performed By: #### L ACT #### [facility] [address] [place] [address] Dr. Hemanth Kerr Urea nitrogen/Creatinine [Mass ratio] 12.9 mg/mg Normal [facility] Comment on above: Performed By: #### L ACT #### [facility] [address] [place] [address] Dr. Hemanth Kerr PROTIMEon 11-28-2022 INR Coag (PPP) [Relative time] 0.97 {INR} Normal [facility] Comment on above: Performed By: #### P T, PTT #### [facility] [address] [place] [address] Dr. Hemanth Kerr INR GUIDELINES SEE BELOW Normal [facility] Comment on above: Result Comment: CHAN RED INR: 2.0 - 3.0 CONDITIONS NOT LISTED BELOW 2.5 - 3.5 FOR PROSTHETIC HEART VALVE REPLACEMENT 2.5 - 3.5 RECURRENT THROMBOSIS Performed By: #### P T, PTT #### [facility] [address] [place] [address] Dr. Hemanth Kerr PT Coag (PPP) [Time] 10.3 s Normal 9.0-11.6 [facility] Comment on above: Performed By: #### P T, PTT #### [facility] [address] [place] [address] Dr. Hemanth Kerr PTTon 11-28-2022 aPTT Coag (Bld) [Time] 25.4 s Normal 22.3-36.2 [facility] Comment on above: Performed By: #### P T, PTT #### [facility] [address] [place] [address] Dr. Hemanth Kerr SALICYLATEon 11-28-2022 SALICYLATE <2.8 Normal <=19.9 [facility] Comment on above: Performed By: #### C MP #### [facility] [address] [place] [address] Dr. Hemanth Kerr TROPONIN, HIGH SENSITIVITYon 11-28-2022 HSTROP 4.2 pg/mL Normal 4.0-51.3 [facility] Comment on above: Result Comment: CUT- OFF POINTS HAVE BEEN ESTABLISHED BASED ON THE FOURTH UNIVERSAL DEFINITIONS OF MYOCARDIAL INFARCTION. THE UPPER REFERENCE LIMIT (URL) OF TROPONIN, DEFINED THE 99TH PERCENTILE OF cTnI DISTRIBUTION IN A REFERENCE POPULATION, HAS BEEN CONFIRMED THE DECISION THRESHOLD FOR SD DIAGNOSIS. Performed By: #### C MP #### [facility] [address] [place] [address] Dr. Hemanth Kerr TSHon 11-28-2022 TSH 3.476 uIU/mL Normal 0.358-3.[address] [facility] Comment on above: Performed By: #### L ACT #### [facility] [address] [place] [address] Dr. Hemanth Kerr URINE MICROSCOPIC ONLYon BACTERIA LARGE Abnormal NONE SEEN [facility] Comment on above: Performed By: #### P REG #### [facility] [address] [place] [address] Dr. Hemanth Kerr Bacteria identified Cx Nom (U) INDICATED Normal [facility] Comment on above: Performed By: #### P REG #### [facility] [address] [place] [address] Dr. Hemanth Kerr CAST SEEN Abnormal NONE SEEN [facility] Comment on above: Performed By: #### P REG #### [facility] [address] [place] [address] Dr. Hemanth Kerr COARSE GRANULAR CAST RARE Normal [facility] Comment on above: Performed By: #### P REG #### [facility] [address] [place] [address] Dr. Hemanth Kerr Crystals LM Nom (Urine sed) NONE SEEN Normal NONE SEEN [facility] Comment on above: Performed By: #### P REG #### [facility] [address] [place] [address] Dr. Hemanth Kerr Epithelial cells LM Ql (Urine sed) RARE Normal NONE SEEN /RARE [facility] Comment on above: Performed By: #### P REG #### [facility] [address] [place] [address] Dr. Hemanth Kerr MUCOUS NONE SEEN Normal NONE SEEN [facility] Comment on above: Performed By: #### P REG #### [facility] [address] [place] [address] Dr. Hemanth Kerr RBC 0-2 Normal 0-2 [facility] Comment on above: Performed By: #### P REG #### [facility] [address] [place] [address] Dr. Hemanth Kerr WBC 2-5 Abnormal NONE SEEN [facility] Comment on above: Performed By: #### P REG #### [facility] [address] [address] [address] Hemanth Kerr XR CHEST 1 Von [...] by: KAMILLA MILLS Date: 2022-11-28 17:39 Normal [facility] CULTURE URINEon 10-13-2022 CULTURE URINE Isolate 1 [...] Trimethoprim/Sulfamet hoxazole >=320 R F Normal [facility] Comment on above: Performed By: #### U RCX #### [facility] [address] [address] [address] Hemanth Kerr CBC AUTO DIFFon 10-11-2022 BASO # 0.0 103/ul Normal 0.0-0.1 [facility] Comment on above: Performed By: #### C BC #### [facility] [address] [place] [address] Dr. Hemanth Kerr Basophils/100 WBC (Bld) 0.3 % Normal 0.2-2.0 [facility] Comment on above: Performed By: #### C BC #### [facility] [address] [place] [address] Dr. Hemanth Kerr EO # 0.0 103/ul Normal 0.0-0.7 [facility] Comment on above: Performed By: #### C BC #### [facility] [address] [place] [address] Dr. Hemanth Kerr Eosinophils/100 WBC (Bld) 0.4 % Critically low 0.9-7.0 [facility] Comment on above: Performed By: #### C BC #### [facility] [address] [place] [address] Dr. Hemanth Kerr Erythrocyte distribution width (RBC) [Ratio] 12.2 % Normal 11.0-15.0 [facility] Comment on above: Performed By: #### C BC #### [facility] [address] [place] [address] Dr. Hemanth Kerr Hematocrit (Bld) [Volume fraction] 38.6 % Normal 36.0-48.0 [facility] Comment on above: Performed By: #### C BC #### [facility] [address] [place] [address] Dr. Hemanth Kerr Hemoglobin (Bld) [Mass/Vol] 12.0 g/dL Normal 12.0-16.0 [facility] Comment on above: Performed By: #### C BC #### [facility] [address] [place] [address] Dr. Hemanth Kerr IG # 0.07 10e3/ul Critically high 0.00-0.03 [facility] Comment on above: Performed By: #### C BC #### [facility] [address] [place] [address] Dr. Hemanth Kerr IG % 0.7 % Critically high 0.0-0.5 [facility] Comment on above: Performed By: #### C BC #### [facility] [address] [place] [address] Dr. Hemanth eKrr LYMPH # 1.2 103/ul Normal 1.2-3.8 [facility] Comment on above: Performed By: #### C BC #### [facility] [address] [place] [address] Dr. Hemanth Kerr Lymphocytes/100 WBC (Bld) 12.1 % Critically low 20.5-60.0 [facility] Comment on above: Performed By: #### C BC #### [facility] [address] [place] [address] Dr. Hemanth Kerr MANUAL DIFF REQ NO Normal [facility] Comment on above: Performed By: #### C BC #### [facility] [address] [place] [address] Dr. Hemanth Kerr MCH (RBC) [Entitic mass] 28.0 pg Normal 26.7-34.0 [facility] Comment on above: Performed By: #### C BC #### [facility] [address] [place] [address] Dr. Hemanth Kerr MCHC (RBC) [Mass/Vol] 31.1 g/dL Normal 29.9-35.2 [facility] Comment on above: Performed By: #### C BC #### [facility] [address] [place] [address] Dr. Hemanth Kerr MCV (RBC) [Entitic vol] 90.2 fL Normal 81.0-99.0 [facility] Comment on above: Performed By: #### C BC #### [facility] [address] [place] [address] Dr. Hemanth Kerr MONO # 0.7 103/ul Normal 0.3-0.8 [facility] Comment on above: Performed By: #### C BC #### [facility] [address] [address] [address] Hemanth Kerr Monocytes/100 WBC (Bld) 6.9 % Normal 1.7-12.0 [facility] Comment on above: Performed By: #### C BC #### [facility] [address] [address] [address] Hemanth Kerr NEUT # 8.1 103/ul Critically high 1.4-6.5 [facility] Comment on above: Performed By: #### C BC #### [facility] [address] [address] [address] Hemanth Kerr Neutrophils/100 WBC (Bld) 79.6 % Critically high 43.0-75.0 [facility] Comment on above: Performed By: #### C BC #### [facility] [address] [place] [address] Dr. Hemanth Kerr Platelet mean volume (Bld) [Entitic vol] 10.8 fL Normal 9.5-13.5 [facility] Comment on above: Performed By: #### C BC #### [facility] [address] [address] [address] Hemanth Kerr PLT 452 103/ul Critically high 150-450 [facility] Comment on above: Performed By: #### C BC #### [facility] [address] [address] [address] Hemanth Kerr RBC 4.28 106/ul Normal 4.20-5.40 [facility] Comment on above: Performed By: #### C BC #### [facility] [address] [place] [address] Dr. Hemanth Kerr WBC 10.1 103/ul Normal 4.0-11.0 [facility] Comment on above: Performed By: #### C BC #### [facility] [address] [place] [address] ABD/PELVIS WO CONon [...] by: CHRISTINE SÁNCHEZ Date: 2022-10-11 14:45 Normal [facility] ER URINE PROFILEon 3 Bilirubin Ql (U) Negative Normal NEGATIVE [facility] Comment on above: Performed By: #### L ACT #### [facility] [address] [place] [address] Dr. Hemanth Kerr Clarity (U) CLEAR Normal CLEAR [facility] Comment on above: Performed By: #### L ACT #### [facility] [address] [address] [address] Hemanth Kerr Color (U) LT. YELLOW Normal YELLOW [facility] Comment on above: Performed By: #### L ACT #### [facility] [address] [place] [address] Dr. Hemanth Kerr ERUAHD A micrscopic examination will be performed if indicated. Normal [facility] Comment on above: Performed By: #### L ACT #### [facility] [address] [address] [address] Hemanth Kerr Glucose Ql (U) Negative Normal NEGATIVE [facility] Comment on above: Performed By: #### L ACT #### [facility] [address] [address] [address] Hemanth Kerr Hemoglobin Ql (U) LARGE Abnormal NEGATIVE [facility] Comment on above: Performed By: #### L ACT #### [facility] [address] [address] [address] Hemanth Kerr Ketones Ql (U) Negative Normal NEGATIVE [facility] Comment on above: Performed By: #### L ACT #### [facility] [address] [place] [address] Dr. Hemanth Kerr LEUKOCYTES SMALL Abnormal NEGATIVE [facility] Comment on above: Performed By: #### L ACT #### [facility] [address] [place] [address] Dr. Hemanth Kerr Nitrite Ql (U) Negative Normal NEGATIVE [facility] Comment on above: Performed By: #### L ACT #### [facility] [address] [place] [address] Dr. Hemanth Kerr pH (U) 6.5 [pH] Normal 5-9 [facility] Comment on above: Performed By: #### L ACT #### [facility] [address] [place] [address] Dr. Hemanth Kerr Protein (U) [Mass/Vol] 30 mg/dL Abnormal NEGATIVE/ TRACE [facility] Comment on above: Performed By: #### L ACT #### [facility] [address] [place] [address] Dr. Hemanth Kerr SPEC GRAVITY <=1.005 Abnormal 1.005-<=1.025 [facility] Comment on above: Performed By: #### L ACT #### [facility] [address] [place] [address] Dr. Hemanth Kerr UR MICRO IND INDICATED Normal [facility] Comment on above: Performed By: #### L ACT #### [facility] [address] [address] [address] Hemanth Kerr Urobilinogen Qn (U) 1.0 {Jose'U}/dL Normal 0.2 - 1. 0 [facility] Comment on above: Performed By: #### L ACT #### [facility] [address] [address] [address] Hemanth Kerr PREG HCG QUALon 10-11-2022 , QUAL Negative Normal NEGATIVE [facility] Comment on above: Performed By: #### P REG #### [facility] [address] [address] [address] Hemanth Kerr PROF CHEM 8 (BAS METB)on Anion gap [Moles/Vol] 9.4 mmol/L Normal [facility] Comment on above: Performed By: #### L ACT #### [facility] [address] [address] [address] Hemanth Kerr Calcium [Mass/Vol] 8.8 mg/dL Normal 8.5-10.1 [facility] Comment on above: Performed By: #### L ACT #### [facility] [address] [address] [address] Hemanth Kerr Chloride [Moles/Vol] 97 mmol/L Critically low 98-107 [facility] Comment on above: Performed By: #### L ACT #### [facility] [address] [address] [address] Hemanth Kerr CO2 [Moles/Vol] 32.4 mmol/L Critically high 21.0-32.0 [facility] Comment on above: Performed By: #### L ACT #### [facility] [address] [address] [address] Hemanth Kerr Creatinine [Mass/Vol] 0.65 mg/dL Normal 0.55-1.02 [facility] Comment on above: Performed By: #### L ACT #### [facility] [address] [address] [address] Hemanth Kerr EGFR-AF CYMRAES >60 Normal >=60 [facility] Comment on above: Performed By: #### L ACT #### [facility] [address] [place] [address] Dr. Hemanth Kerr EGFR-NON AF CYMRAES >60 Normal >=60 [facility] Comment on above: Performed By: #### L ACT #### [facility] [address] [address] [address] Hemanth Kerr Glucose [Mass/Vol] 117 mg/dL Critically high 74-106 [facility] Comment on above: Performed By: #### L ACT #### [facility] [address] [address] [address] Hemanth Kerr Potassium [Moles/Vol] 2.8 mmol/L Critically low 3.5-5.1 [facility] Comment on above: Performed By: #### L ACT #### [facility] [address] [place] [address] Dr. Hemanth Kerr Sodium [Moles/Vol] 135 mmol/L Critically low 136-145 [facility] Comment on above: Performed By: #### L ACT #### [facility] [address] [place] [address] Dr. Hemanth Kerr Urea nitrogen [Mass/Vol] 8.0 mg/dL Normal 7.0-18.0 [facility] Comment on above: Performed By: #### L ACT #### [facility] [address] [place] [address] Dr. Hemanth Kerr Urea nitrogen/Creatinine [Mass ratio] 12.3 mg/mg Normal [facility] Comment on above: Performed By: #### L ACT #### [facility] [address] [place] [address] Dr. Hemanth Kerr URINE MICROSCOPIC ONLYon BACTERIA SMALL Abnormal NONE SEEN [facility] Comment on above: Performed By: #### L ACT #### [facility] [address] [place] [address] Dr. Hemanth Kerr Bacteria identified Cx Nom (U) INDICATED Normal [facility] Comment on above: Performed By: #### L ACT #### [facility] [address] [place] [address] Dr. Hemanth Kerr CAST NONE SEEN Normal NONE SEEN [facility] Comment on above: Performed By: #### L ACT #### [facility] [address] [place] [address] Dr. Hemanth Kerr Crystals LM Nom (Urine sed) NONE SEEN Normal NONE SEEN [facility] Comment on above: Performed By: #### L ACT #### [facility] [address] [place] [address] Dr. Hemanth Kerr Epithelial cells LM Ql (Urine sed) FEW Abnormal NONE SEEN /RARE [facility] Comment on above: Performed By: #### L ACT #### [facility] [address] [place] [address] Dr. Hemanth Kerr MUCOUS NONE SEEN Normal NONE SEEN [facility] Comment on above: Performed By: #### L ACT #### [facility] [address] [place] [address] Dr. Hemanth Kerr RBC 0-2 Normal 0-2 [facility] Comment on above: Performed By: #### L ACT #### [facility] [address] [place] [address] Dr. Hemanth Kerr WBC 10-20 Abnormal NONE SEEN [facility] Comment on above: Performed By: #### L ACT #### [facility] [address] [place] [address] Dr. Hemanth Kerr PREG QUANT HCGon 09-12-2022 HCG QUANT 66 mIU/mL Normal [facility] Comment on above: Performed By: #### C MP #### [facility] [address] [place] [address] Dr. Hemanth Kerr HCG RANGE SEE BELOW Normal [facility] Comment on above: Result Comment: 5-50 0.2-1 WEEK 50-500 1-2 WEEKS 100-5,000 2-3 WEEKS 500-10,000 3-4 WEEKS 1,000-50,000 4-5 WEEKS 10,000-100,000 5-6 WEEKS 15,000-200,000 6-8 WEEKS 10,000-100,000 2-3 MONTHS Performed By: #### C MP #### [facility] [address] [place] [address] Dr. Hemanth Kerr CBC AUTO DIFFon 08-16-2022 BASO # 0.0 103/ul Normal 0.0-0.1 [facility] Comment on above: Performed By: #### L ACT #### [facility] [address] [place] [address] Dr. Hemanth Kerr Basophils/100 WBC (Bld) 0.6 % Normal 0.2-2.0 [facility] Comment on above: Performed By: #### L ACT #### [facility] [address] [place] [address] Dr. Hemanth Kerr EO # 0.1 103/ul Normal 0.0-0.7 [facility] Comment on above: Performed By: #### L ACT #### [facility] [address] [place] [address] Dr. Hemanth Kerr Eosinophils/100 WBC (Bld) 1.3 % Normal 0.9-7.0 [facility] Comment on above: Performed By: #### L ACT #### [facility] [address] [place] [address] Dr. Hemanth Kerr Erythrocyte distribution width (RBC) [Ratio] 12.0 % Normal 11.0-15.0 [facility] Comment on above: Performed By: #### L ACT #### [facility] [address] [place] [address] Dr. Hemanth Kerr Hematocrit (Bld) [Volume fraction] 35.6 % Critically low 36.0-48.0 [facility] Comment on above: Performed By: #### L ACT #### [facility] [address] [place] [address] Dr. Hemanth Kerr Hemoglobin (Bld) [Mass/Vol] 12.4 g/dL Normal 12.0-16.0 [facility] Comment on above: Performed By: #### L ACT #### [facility] [address] [place] [address] Dr. Hemanth Kerr IG # 0.02 10e3/ul Normal 0.00-0.03 [facility] Comment on above: Performed By: #### L ACT #### [facility] [address] [place] [address] Dr. Hemanth Kerr IG % 0.3 % Normal 0.0-0.5 [facility] Comment on above: Performed By: #### L ACT #### [facility] [address] [place] [address] Dr. Hemanth Kerr LYMPH # 1.9 103/ul Normal 1.2-3.8 [facility] Comment on above: Performed By: #### L ACT #### [facility] [address] [place] [address] Dr. Hemanth Kerr Lymphocytes/100 WBC (Bld) 27.5 % Normal 20.5-60.0 [facility] Comment on above: Performed By: #### L ACT #### [facility] [address] [place] [address] Dr. Hemanth Kerr MANUAL DIFF REQ NO Normal [facility] Comment on above: Performed By: #### L ACT #### [facility] [address] [place] [address] Dr. Hemanth Kerr MCH (RBC) [Entitic mass] 29.6 pg Normal 26.7-34.0 [facility] Comment on above: Performed By: #### L ACT #### [facility] [address] [place] [address] Dr. Hemanth Kerr MCHC (RBC) [Mass/Vol] 34.8 g/dL Normal 29.9-35.2 [facility] Comment on above: Performed By: #### L ACT #### [facility] [address] [place] [address] Dr. Hemanth Kerr MCV (RBC) [Entitic vol] 85.0 fL Normal 81.0-99.0 [facility] Comment on above: Performed By: #### L ACT #### [facility] [address] [place] [address] Dr. Hemanth Kerr MONO # 0.4 103/ul Normal 0.3-0.8 [facility] Comment on above: Performed By: #### L ACT #### [facility] [address] [place] [address] Dr. Hemanth Kerr Monocytes/100 WBC (Bld) 6.3 % Normal 1.7-12.0 [facility] Comment on above: Performed By: #### L ACT #### [facility] [address] [address] [address] Hemanth Kerr NEUT # 4.5 103/ul Normal 1.4-6.5 [facility] Comment on above: Performed By: #### L ACT #### [facility] [id number] Hemanth Kerr Neutrophils/100 WBC (Bld) 64.0 % Normal 43.0-75.0 [facility] Comment on above: Performed By: #### L ACT #### [facility] [address] [address] [address] Hemanth Kerr Platelet mean volume (Bld) [Entitic vol] 10.6 fL Normal 9.5-13.5 [facility] Comment on above: Performed By: #### L ACT #### [facility] [address] [address] [address] Hemanth Kerr PLT 247 103/ul Normal 150-450 [facility] Comment on above: Performed By: #### L ACT #### [facility] [id number] Hemanth Kerr RBC 4.19 106/ul Critically low 4.20-5.40 [facility] Comment on above: Performed By: #### L ACT #### [facility] [address] [address] [address] Hemanth Kerr WBC 7.0 103/ul Normal 4.0-11.0 [facility] Comment on above: Performed By: #### L ACT #### [facility] [address] [address] [address] Hemanth Kerr [facility]20 SARS-CoV-2 (COVID-19) RNA ELMO+probe Ql (Unsp spec) Not detected Normal NOT DETECTED [facility] Comment on above: Result Comment: This test is not yet approved or cleared by the [place] FDA. When there are no FDA-approved or cleared tests available, and other criteria are met, FDA can make tests available under an emergency access mechanism called an Emergency Use Authorization (EUA). The EUA for this test is supported by the [place] of Health and Human Service's (HHS's) declaration [...] SARS-CoV-2. Performed By: #### C MP #### [facility] [address] [place] [address] Dr. Hemanth Kerr PREG QUANT HCGon 08-16-2022 HCG QUANT 29380 mIU/mL Normal [facility] Comment on above: Performed By: #### P REG #### [facility] [address] [place] [address] Dr. Hemanth Kerr HCG RANGE SEE BELOW Normal [facility] Comment on above: Result Comment: 5-50 0.2-1 WEEK 50-500 1-2 WEEKS 100-5,000 2-3 WEEKS 500-10,000 3-4 WEEKS 1,000-50,000 4-5 WEEKS 10,000-100,000 5-6 WEEKS 15,000-200,000 6-8 WEEKS 10,000-100,000 2-3 MONTHS Performed By: #### P REG #### [facility] [address] [place] [address] Dr. Hemanth Kerr PREG QUANT HCGon 08-14-2022 HCG QUANT 51863 mIU/mL Normal [facility] Comment on above: Performed By: #### P REG #### [facility] [address] [place] [address] Dr. Hemanth Kerr HCG RANGE SEE BELOW Normal [facility] Comment on above: Result Comment: 5-50 0.2-1 WEEK 50-500 1-2 WEEKS 100-5,000 2-3 WEEKS 500-10,000 3-4 WEEKS 1,000-50,000 4-5 WEEKS 10,000-100,000 5-6 WEEKS 15,000-200,000 6-8 WEEKS 10,000-100,000 2-3 MONTHS Performed By: #### P REG #### [facility] [address] [address] [address] Hemanth Kerr US PREG TVon 08-14-2022 [...] by: CHRISTINE SÁNCHEZ Date: 2022-08-14 16:22 Normal [facility] US PREG TVon 07-27-2022 US PREG TV [...] by: CHRISTINE SÁNCHEZ Date: 2022-07-27 17:04 Normal [facility] XR CHEST 1 Von 07-09-2022 XR CHEST [...] by: FELIX WEBB Date: 2022-07-09 12:[address] [facility] ([id number]) 1995 F Date Time Provider Department 12/12/21 KING SUAZO During your visit today, we recorded the following information about you: Angelia Almazan 12/12/2021 11:16 AM Signed Pleases sign pending new cbc order. Thanks, Angelia Almazan MA Allergies As of Date: 12/12/2021 (No Known Allergies) Date Reviewed: 12/12/2021 Reviewed by: Jasmin Silverio APRN.[facility] - Fully Assessed Reason for Visit: Lab Orders [1688] Primary Visit Diagnosis:Iron deficiency anemia, unspecified iron deficiency anemia type [D50.9] Order(s):CBC + DIFF [SQCBCDIF] Order #: [id number] FUTURE Prescriptions as of 12/12/2021 - gabapentin (NEURONTIN) 400 mg capsule Take by mouth. - Polysaccharide Iron Complex 180 mg iron cap Take by mouth. - aspirin 81 mg cap Take 81 mg by mouth once daily. - ONDANSETRON HCL ORAL Take 4 mg by mouth as needed. Problem List As Of Date: 12/12/2021 (None) Encounter Status:Closed by JASMIN SILVERIO on 12/12/21 Normal [facility]E ERVIN ([id number]) 1995 F Date Time Provider Department 11/10/21 [...] B12 is slightly low. Options would be [id number] B12 tablets 2 mg daily or start [...] JENNYFER DE LA O on 11/10/21 Normal [facility] CNOVSPon 11-08-2021 CNOVSP Visit (SP) Office (HE[place]) NOE ERVIN ([id number]) 1995 F Date Time Provider Department 11/08/21 [...] shortness of breath, and is seen at [place] emergency room. Labs revealed a hemoglobin of [...] changes, r (more content not included)... Normal [facility] Comp Metabolic Panelon 11-08 Albumin [Mass/Vol] 3.6 g/dL Low 3.9-4.9 [facility] Comment on above: Performed By: #### S ERFOL, IRON, B12, FERR #### [address] [address] ALP [Catalytic activity/Vol] 79 U/L Normal 34-123 [facility] Comment on above: Performed By: #### S ERFOL, IRON, B12, FERR #### [address] [address] ALT [Catalytic activity/Vol] 8 U/L Normal 7-38 [facility] Comment on above: Performed By: #### S ERFOL, IRON, B12, FERR #### [address] [address] Anion gap [Moles/Vol] 9 mmol/L Normal 9-18 [facility] Comment on above: Performed By: #### S ERFOL, IRON, B12, FERR #### [address] [address] AST [Catalytic activity/Vol] 13 U/L Normal 13-35 [facility] Comment on above: Performed By: #### S ERFOL, IRON, B12, FERR #### [facility] [address] [address] Bilirubin [Mass/Vol] 0.2 mg/dL Normal 0.2-1.3 [facility] Comment on above: Performed By: #### S ERFOL, IRON, B12, FERR #### [address] [address] Calcium [Mass/Vol] 9.3 mg/dL Normal 8.5-10.2 [facility] Comment on above: Performed By: #### S ERFOL, IRON, B12, FERR #### [address] [phone] Chloride [Moles/Vol] 102 mmol/L Normal 97-105 [facility] Comment on above: Performed By: #### S ERFOL, IRON, B12, FERR #### [address] [phone] CO2 [Moles/Vol] 23 mmol/L Normal 22-30 [facility] Comment on above: Performed By: #### S ERFOL, IRON, B12, FERR #### [address] [phone] Creatinine [Mass/Vol] 0.55 mg/dL Low 0.58-0.96 [facility] Comment on above: Performed By: #### S ERFOL, IRON, B12, FERR #### [address] [address] eGFR- Amer. >60 Normal [facility] Comment on above: Performed By: #### S ERFOL, IRON, B12, FERR #### [address] [address] eGFR-All Other Races >60 Normal [facility] Comment on above: Result Comment: eGFR (Estimated [...] #### S ERFOL, IRON, B12, FERR #### [facility] [employer] [address] [place], [place] [address] Glucose [Mass/Vol] 96 mg/dL Normal 74-99 [facility] Comment on above: Result Comment: The [place] Diabetes Association (ADA) provides guidance for cutoff [...] Standards of Medical Care in Diabetes 2016, [place] [employer]. Diabetes Care. 2016.39(Suppl 1). Performed By: #### S ERFOL, IRON, B12, FERR #### [facility] [employer] [address] [place], [place] [address] Potassium [Moles/Vol] 3.3 mmol/L Low 3.7-5.1 [facility] Comment on above: Performed By: #### S ERFOL, IRON, B12, FERR #### [address] [place], [place] [address] Protein [Mass/Vol] 6.3 g/dL Normal 6.3-8.0 [facility] Comment on above: Performed By: #### S ERFOL, IRON, B12, FERR #### [address] [address] Sodium [Moles/Vol] 134 mmol/L Low 136-144 [facility] Comment on above: Performed By: #### S ERFOL, IRON, B12, FERR #### [address] [address] Urea nitrogen [Mass/Vol] 4 mg/dL Low 7-21 [facility] Comment on above: Performed By: #### S ERFOL, IRON, B12, FERR #### [address] [address] Ferritinon 11-08-2021 Ferritin [Mass/Vol] 203.0 ng/mL Normal 14.7-205.1 [facility] Comment on above: Performed By: #### S ERFOL, IRON, B12, FERR #### [address] [address] Folate, Serumon 11-08-2021 Folate [Mass/Vol] 8.5 ng/mL Normal >4.7 [facility] Comment on above: Performed By: #### S ERFOL, IRON, B12, FERR #### [address] [address] Iron and TIBCon 11-08-2021 Iron [Mass/Vol] 93 ug/dL Normal 41-186 [facility] Comment on above: Performed By: #### S ERFOL, IRON, B12, FERR #### [address] [address] TIBC 407 ug/dL High 232-386 [facility] Comment on above: Performed By: #### S ERFOL, IRON, B12, FERR #### [facility] [address] [place], [place] [address] Transferrin Saturatn 23 % Normal 15-57 [facility] Comment on above: Performed By: #### S ERFOL, IRON, B12, FERR #### [facility] [address] [place], [place] [address] Remote CBCDIF (for [facility] use o nly)on 11-08-2021 Abs Baso <0.03 Normal <0.11 [facility] Abs Twiggs 0.57 k/uL Normal <0.87 [facility] Abs Neut 4.67 k/uL Normal 1.45-7.50 [facility] Absolute nRBC <0.01 Normal <0.01 [facility] Basophils/100 WBC (Bld) 0.3 % Normal [facility] DTYPE Auto Diff Normal [facility] Eosinophils (Bld) [#/Vol] 0.05 10*3/uL Normal <0.46 [facility] Eosinophils/100 WBC (Bld) 0.8 % Normal [facility] Erythrocyte distribution width (RBC) [Ratio] 29.9 % High 11.5-15.0 [facility] Hematocrit (Bld) [Volume fraction] 32.6 % Low 36.0-46.0 [facility] Hemoglobin (Bld) [Mass/Vol] 10.1 g/dL Low 11.5-15.5 [facility] Lymphocytes (Bld) [#/Vol] 1.25 10*3/uL Normal 1.00-4.00 [facility] Lymphocytes/100 WBC (Bld) 19.1 % Normal [facility] MCH 25.1 pG Low 26.0-34.0 [facility] MCHC (RBC) [Mass/Vol] 31.0 g/dL Normal 30.5-36.0 [facility] MCV (RBC) [Entitic vol] 81.1 fL Normal 80.0-100.0 [facility] Monocytes/100 WBC (Bld) 8.7 % Normal [facility] Neutrophils/100 WBC (Bld) 71.1 % Normal [facility] NRBCs 0.0 /100 WBC Normal 0 [facility] Platelet mean volume (Bld) [Entitic vol] 10.3 fL Normal 9.0-12.7 [facility] Platelets (Bld) [#/Vol] 223 10*3/uL Normal 150-400 [facility] Comment on above: Result Comment: Resu lt checked and verified Sample checked for a clot. RBC (Bld) [#/Vol] 4.02 10*6/uL Normal 3.90-5.20 [facility] WBC (Bld) [#/Vol] 6.56 10*3/uL Normal 3.70-11.00 [facility] Reticulocyteon 11-08-2021 Abs Retic 0.140 M/uL High 0.0180-0.1000 [facility] Comment on above: Performed By: #### S ERFOL, IRON, B12, FERR #### [address] [address] Retic% 3.5 % High 0.4-2.0 [facility] Comment on above: Performed By: #### S ERFOL, IRON, B12, FERR #### [address] [address] Vitamin B12on 11-08-2021 Cobalamin (Vitamin B12) [Mass/Vol] 218 pg/mL Low 232-1245 [facility] Comment on above: Performed By: #### S ERFOL, IRON, B12, FERR #### [address] [address] HCV RNA,Quant,PCRon 04-27-20 20 HCV RNA,Quant,PCR Specimen [...] genotypes 1-6. Report Status FINAL 04/27/2020 Normal [facility] Comment on above: Performed By: #### H IVCMB, PHEP #### [address] [address] Pond Supervisor: Dom Fowler MD #### CP #### [facility] [address] [place] [address] [place] [phone] P[place] Supervisor: Shakeel Graham MD [facility] 04-26-2020 Erythrocyte distribution width (RBC) [Ratio] 14.7 % High 11.8-14.4 [facility] Comment on above: Performed By: #### H IVCMB, PHEP #### [address] [address] Pond Supervisor: Dom Fowler MD #### CP #### [address] [place] [phone] P[place] Supervisor: Shakeel Graham MD Hematocrit (Bld) [Volume fraction] 36.0 % Low 36.3-47.1 [facility] Comment on above: Performed By: #### H IVCMB, PHEP #### [address] [address] P[place] Supervisor: Dom Fowler MD #### CP #### [facility] [address] [place] [address] [address] [place] [phone] P[place] Supervisor: Shakeel Graham MD Hemoglobin (Bld) [Mass/Vol] 10.9 g/dL Low 11.9-15.1 [facility] Comment on above: Performed By: #### H IVCMB, PHEP #### [address] [address] P[place] Supervisor: Dom Fowler MD #### CP #### [address] [place], [place] [phone] Pond Supervisor: Shakeel Graham MD MCH (RBC) [Entitic mass] 26.2 pg Normal 25.2-33.5 [facility] Comment on above: Performed By: #### H IVCMB, PHEP #### [address] [id number] P[place] Supervisor: Dom Fowler MD #### CP #### [address] [place] [phone] [place] Supervisor: Shakeel Graham MD MCHC (RBC) [Mass/Vol] 30.3 g/dL Normal 28.4-34.8 [facility] Comment on above: Performed By: #### H IVCMB, PHEP #### [address] [id number] P[place] Supervisor: Dom Fowler MD #### CP #### [address] [place] [phone] P[place] Supervisor: Shakeel Graham MD MCV (RBC) [Entitic vol] 86.5 fL Normal 82.6-102.9 [facility] Comment on above: Performed By: #### H IVCMB, PHEP #### [address] [address] P[place] Supervisor: Dom Fowler MD #### CP #### [address] [phone] P[place] Supervisor: Shakeel Graham MD NRBC Automated 0.0 per 100 WBC Normal 0.0 [facility] Comment on above: Performed By: #### H IVCMB, PHEP #### [address] [id number] P[place] Supervisor: Dom Fowler MD #### CP #### [address] [place], [place] [phone] Pond Supervisor: Shakeel Graham MD Platelet mean volume (Bld) [Entitic vol] 10.8 fL Normal 8.1-13.5 [facility] Comment on above: Performed By: #### H IVCMB, PHEP #### [address] [address] Pond Supervisor: Dom Fowler MD #### CP #### [address] [place] [id number] Pond Supervisor: Shakeel Graham MD Platelets (Bld) [#/Vol] 328 10*3/uL Normal 138-453 [facility] Comment on above: Performed By: #### H IVCMB, PHEP #### [address] [address] Pond Supervisor: Dom Fowler MD #### CP #### [address] [place] [id number] Pond Supervisor: Shakeel Graham MD RBC (Bld) [#/Vol] 4.16 10*6/uL Normal 3.95-5.11 [facility] Comment on above: Performed By: #### H IVCMB, PHEP #### [address] [address] Pond Supervisor: Dom Fowler MD #### CP #### [address] [place] [id number] Pond Supervisor: Shakeel Graham MD WBC (Bld) [#/Vol] 5.7 10*3/uL Normal 3.5-11.3 [facility] Comment on above: Performed By: #### H IVCMB, PHEP #### [address] [address] Pond Supervisor: Dom Fowler MD #### CP #### [address] [place] [address] Pond Supervisor: Shakeel Graham MD Erythrocyte distribution width (RBC) [Ratio] 14.7 % High 11.8 - 14.4 % [place] Hematocrit (Bld) [Volume fraction] 36.0 % Low 36.3 - 47.1 % [place] Hemoglobin (Bld) [Mass/Vol] 10.9 g/dL Low 11.9 - 15.1 g/dL [place] Interpretation and review of laboratory results Abnormal [place] MCH (RBC) [Entitic mass] 26.2 pg 25.2 - 33.5 pg [place] MCHC (RBC) [Mass/Vol] 30.3 g/dL 28.4 - 34.8 g/dL [place] MCV (RBC) [Entitic vol] 86.5 fL 82.6 - 102.9 fL [place] Platelet mean volume (Bld) [Entitic vol] 10.8 fL 8.1 - 13.5 fL [place] Platelets (Bld) [#/Vol] 328 10*3/uL [place] RBC (Bld) [#/Vol] 4.16 10*6/uL 3.95 - 5.1 1 m/uL [place] WBC (Bld) [#/Vol] 0.0 10*3/uL 0.0 per 100 WBC M [place] WBC (Bld) [#/Vol] 5.7 10*3/uL [place] Comp Metabolic Profon 2019 Bilirubin Ql (U) <0.10 Low 0.3-1.2 [facility] Comment on above: Performed By: #### H IVCMB, PHEP #### [facility] [address] [place] [address] Pond Supervisor: Dom Fowler MD #### CP #### [facility] [address] [place] [address] Pond Supervisor: Shakeel Graham MD (cont.) Normal [facility] Comment on above: Result Comment: Aver age GFR for 20-29 years old: 116 mL/min/1.73sq m Chronic Kidney Disease: <60 mL/min/1.73sq m Kidney failure: <15 mL/min/1.73sq m eGFR calculated using average adult body mass. Additional eGFR calculator available at: http://www.ethority/multiple_crcl_2012.htm Performed By: #### H IVCMB, PHEP #### [facility] [address] [place] [address] Pond Supervisor: Dom Fowler MD #### CP #### [facility] [address] [place] [address] Pond Supervisor: Shakeel Graham MD Albumin [Mass/Vol] 3.4 g/dL Low 3.5-5.2 [facility] Comment on above: Performed By: #### H IVCMB, PHEP #### [address] [address] Pond Supervisor: Dom Fowler MD #### CP #### [facility] [address] [place] [address] Pond Supervisor: Shakeel Graham MD Albumin/Globulin [Mass ratio] 1.5 {ratio} Normal 1.0-2.5 [facility] Comment on above: Performed By: #### H IVCMB, PHEP #### [address] [address] Pond Supervisor: Dom Fowler MD #### CP #### [facility] [address] [place] [address] Pond Supervisor: Shakeel Graham MD Alkaline Phos 40 U/L Normal 35-104 [place] Comment on above: Performed By: #### H IVCMB, PHEP #### [facility] [address] [place] [address] Pond Supervisor: Dom Fowler MD #### CP #### [facility] [address] [place] [address] Pond Supervisor: Shakeel Graham MD ALT [Catalytic activity/Vol] 12 U/L Normal 5-33 [facility] Comment on above: Performed By: #### H IVCMB, PHEP #### [facility] [address] [place] [address] Pond Supervisor: Dom Fowler MD #### CP #### [facility] [address] [place] [address] Pond Supervisor: Shakeel Graham MD Anion gap [Moles/Vol] 9 mmol/L Normal 9-17 [facility] Comment on above: Performed By: #### H IVCMB, PHEP #### [address] [address] Pond Supervisor: Dom Fowler MD #### CP #### [facility] [address] [place] [address] [place] [address] Pond Supervisor: Shakeel Graham MD AST [Catalytic activity/Vol] 12 U/L Normal <32 [facility] Comment on above: Performed By: #### H IVCMB, PHEP #### [address] [address] Pond Supervisor: Dom Fowler MD #### CP #### [facility] [address] [place] [address] [place] [address] Pond Supervisor: Shakeel Graham MD BUN/CRE Ratio 26 High 9-20 [place] Comment on above: Performed By: #### H IVCMB, PHEP #### [address] [address] Pond Supervisor: Dom Fowler MD #### CP #### [facility] [address] [place], [place] [id number] Pond Supervisor: Shakeel Graham MD Calcium [Mass/Vol] 9.3 mg/dL Normal 8.6-10.4 [facility] Comment on above: Performed By: #### H IVCMB, PHEP #### [address] [address] Pond Supervisor: Dom Fowler MD #### CP #### [facility] [address] [place] [id number] Pond Supervisor: Shakeel Graham MD Chloride [Moles/Vol] 109 mmol/L High 98-107 [facility] Comment on above: Performed By: #### H IVCMB, PHEP #### [address] [address] Pond Supervisor: Dom Fowler MD #### CP #### [facility] [address] [place] [id number] Pond Supervisor: Shakeel Graham MD CO2 [Moles/Vol] 26 mmol/L Normal 20-31 [facility] Comment on above: Performed By: #### H IVCMB, PHEP #### [address] [address] Pond Supervisor: Dom Fowler MD #### CP #### [facility] [address] [place] [address] Dr. [place] [id number] Pond Supervisor: Shakeel Graham MD Creatinine [Mass/Vol] 0.57 mg/dL Normal 0.50-0.90 [facility] Comment on above: Performed By: #### H IVCMB, PHEP #### [address] [address] Pond Supervisor: Dom Fowler MD #### CP #### [facility] [address] [place], [place] [id number] Pond Supervisor: Shakeel Graham MD GFR, Amer >60 Normal >60 [facility] Comment on above: Performed By: #### H IVCMB, PHEP #### [address] [address] Pond Supervisor: Dom Fowler MD #### CP #### [facility] [address] [place], [place] [id number] Pond Supervisor: Shakeel Graham MD GFR,non Amer >60 Normal >60 [facility] Comment on above: Performed By: #### H IVCMB, PHEP #### [address] [address] Pond Supervisor: Dom Fowler MD #### CP #### [facility] [address] [place] [address] Dr. [place], [place] [id number] Pond Supervisor: Shakeel Graham MD Glucose [Mass/Vol] 92 mg/dL Normal 70-99 [facility] Comment on above: Performed By: #### H IVCMB, PHEP #### [address] [address] Pond Supervisor: Dom Fowler MD #### CP #### [facility] [address] [place] [address] [address]. [place], [place] [id number] Pond Supervisor: Shakeel Graham MD Potassium [Moles/Vol] 3.8 mmol/L Normal 3.7-5.3 [facility] Comment on above: Performed By: #### H IVCMB, PHEP #### [address] [address] Pond Supervisor: Dom Fowler MD #### CP #### [facility] [address] [place], [place] [id number] Pond Supervisor: Shakeel Graham MD Protein [Mass/Vol] 5.7 g/dL Low 6.4-8.3 [facility] Comment on above: Performed By: #### H IVCMB, PHEP #### [address] [address] Pond Supervisor: Dom Fowler MD #### CP #### [facility] [address] [place] [address] Pond Supervisor: Shakeel Graham MD Sodium [Moles/Vol] 144 mmol/L Normal 135-144 [facility] Comment on above: Performed By: #### H IVCMB, PHEP #### [address] [address] Pond Supervisor: Dom Fowler MD #### CP #### [facility] [address] [place] [address] Pond Supervisor: Shakeel Graham MD Staging: Normal [facility] Comment on above: Result Comment: Stag e 1: Some kidney damage normal GFR Stage 2: Mild kidney damage GFR 60-89 Stage 3: Moderate kidney damage GFR 30-59 Stage 4: Severe kidney damage GFR 15-29 Stage 5: Severe kidney damage GFR <15 ESRD - chronic treatment by dialysis or transplant Performed By: #### H IVCMB, PHEP #### [address] [address] Pond Supervisor: Dom Fowler MD #### CP #### [address] [place] [address] Pond Supervisor: Shakeel Graham MD Urea nitrogen [Mass/Vol] 15 mg/dL Normal 6-20 [facility] Comment on above: Performed By: #### H IVCMB, PHEP #### [address] [address] Pond Supervisor: Dom Fowler MD #### CP #### [address] [place] [address] Pond Supervisor: Shakeel Graham MD [facility] Metabolic Pane [facility] 04-26-2020 Albumin [Mass/Vol] 3.4 g/dL Low 3.5 - 5.2 g/dL [place] Albumin/Globulin [Mass ratio] 1.5 {ratio} [place] ALP [Catalytic activity/Vol] 40 U/L 35 - 104 U/L [place] ALT [Catalytic activity/Vol] 12 U/L 5 - 33 U/L [place] Anion gap [Moles/Vol] 9 mmol/L 9 - 17 mmol/L [place] AST [Catalytic activity/Vol] 12 U/L <32 [place] Bilirubin Ql (U) <0.10 Low 0.3 - 1.2 mg/dL [place] Bun/Cre Ratio 26 High [place] Calcium [Mass/Vol] 9.3 mg/dL 8.6 - 10. 4 mg/dL [place] Chloride [Moles/Vol] 109 mmol/L High 98 - 107 mmol/L [place] CO2 [Moles/Vol] 26 mmol/L 20 - 31 mmol/L [place] Creatinine [Mass/Vol] 0.57 mg/dL 0.5 - 0.9 mg/dL [place] GFR >60 >60 mL/min [place] GFR Non- >60 >60 mL/min [place] Glucose [Mass/Vol] 92 mg/dL 70 - 99 mg/dL [place] Interpretation and review of laboratory results Abnormal [place] Potassium [Moles/Vol] 3.8 mmol/L 3.7 - 5.3 mmol/L [place] Protein [Mass/Vol] 5.7 g/dL Low 6.4 - 8.3 g/dL [place] Sodium [Moles/Vol] 144 mmol/L 135 - 144 mmol/L [place] Urea nitrogen [Mass/Vol] 15 mg/dL 6 - 20 mg/dL [place] HCG Qualitative, Serumon hCG Qual Negative NEGATIVE [place] Comment on above: Specimens with hCG l evels near the threshold of the test (25 mIU/mL) may give a negative or indeterminate result. In such cases, another test should be performed with a new specimen in 48-72 hours. If early is suspected clinically in this setting, correlation with quantitative serum b-hCG level is suggested. [facility] has confirmed the use of plasma for this test. This has not been cleared or approved by the U.S. Food and Drug Administration. The FDA has determined that such clearance is not necessary. HCG Screen, Bloodon 04-26-20 20 HCG Qn Negative Normal NEG [facility] Comment on above: Result Comment: Spec imens with hCG levels near the threshold of the test (25 mIU/mL) may give a negative or indeterminate result. In such cases, another test should be performed with a new specimen in 48-72 hours. If early is suspected clinically in this setting, correlation with quantitative serum b-hCG level is suggested. [employer] has confirmed the use of plasma for this test. This has not been cleared or approved by the U.S. Food and Drug Administration. The FDA has determined that such clearance is not necessary. Performed By: #### H IVCMB, PHEP #### [facility] [address], [place] [id number] Pond Supervisor: Dom Fowler MD #### CP #### [facility] [address] [place] [address] [place] [address] Pond Supervisor: Shakeel Graham MD HIV Ag/Abon 04-26-2020 HIV Ag/Ab NONREACTIVE Normal NR [facility] Comment on above: Result Comment: No l aboratory evidence of HIV infection. If acute HIV infection is suspected, consider testing for HIV-1 RNA. Performed By: #### H IVCMB, PHEP #### [facility] [address] [place] [address] Pond Supervisor: Dom Fowler MD #### CP #### [facility] [address] [place] [address] Pond Supervisor: Shakeel Graham MD HIV Screenon 04-26-2020 HIV Ag/Ab NONREACTIVE NONREACTIVE [facility] [place] Comment on above: No laboratory eviden ce of HIV infection. If acute HIV infection is suspected, consider testing for HIV-1 RNA. Hepatitis Acute [facility] 04-26 Hep A Ab,IgM NONREACTIVE Normal NR [place] Comment on above: Performed By: #### H IVCMB, PHEP #### [facility] [address] [place] [address] Pond Supervisor: Dom Fowler MD #### CP #### [facility] [address] [place] [address] [address] [place], [place] [id number] Pond Supervisor: Shakeel Graham MD Hep B Core Ab,IgM NONREACTIVE Normal [facility] Comment on above: Performed By: #### H IVCMB, PHEP #### [address] [address] Pond Supervisor: Dom Fowler MD #### CP #### [address] [place], [place] [id number] Pond Supervisor: Sahkeel Graham MD Hep B Surf Ag NONREACTIVE Normal [facility] Comment on above: Performed By: #### H IVCMB, PHEP #### [address] [address] Pond Supervisor: Dom Fowler MD #### CP #### [address] [place] [address] Pond Supervisor: Shakeel Graham MD Hep C Ab REACTIVE Abnormal [facility] Comment on above: Result Comment: The hepatitis [...] Performed By: #### H IVCMB, PHEP #### [facility] [address] [place] [address] Pond Supervisor: Dom Fowler MD #### CP #### [facility] [address] [place] [address] Pond Supervisor: Shakeel Graham MD Hepatitis Panel, Acuteon HAV IgM IA Qn (S) NONREACTIVE NONREACTIVE [place] Hep B Core Ab, IgM NONREACTIVE NONREACTIVE [place] Hepatitis B Surface Ag NONREACTIVE NONREACTIVE [place] Hepatitis C Ab REACTIVE Abnormal NONREACTIVE [place] Comment on above: The hepatitis C [...] Interpretation and review of laboratory results Abnormal [place] Metabolic Panelon 04-26-2020 GFR/1.73 sq M predicted among non-blacks MDRD (S/P/Bld) [Vol rate/Area] [place] Comment on above: Stage 1: Some [...] body mass. Additional eGFR calculator available at: http://www.[facility].mnlakeplace.com/multiple_crcl_2012.htm Microscopic Urinalysison Amorphous, UA NOT REPORTED None [place], [place] Bacteria, UA NOT REPORTED None [place] Casts UA NOT REPORTED /LPF [place], [place] Crystals, UA 5 TO 10 Abnormal None /HPF [place] Crystals, UA CALCIUM OXALATE Abnormal None /HPF [place] Epithelial Cells UA 0 TO 2 [place] Interpretation and review of laboratory results Abnormal [place] Mucus, UA TRACE Abnormal None [place] Other Observations UA NOT REPORTED NOT REQ. [place] RBC (U) [#/Vol] None [facility] [place] Renal Epithelial, UA NOT REPORTED 0 /HPF [place], [place] Trichomonas, UA NOT REPORTED None [facility] [place] WBC, UA 0 TO 2 [place] Yeast, UA NOT REPORTED None [facility], [place] - [place] UA w/Reflex Cultureon 2019 Acetoacetic Acid,Ur Negative Normal NEG [facility] Comment on above: Performed By: #### H IVCMB, PHEP #### [address] [address] Pond Supervisor: Dom Fowler MD #### CP #### [facility] [address] [place] [address] [place] [address] Pond Supervisor: Shakeel Graham MD Bilirubin, SemiQt,Ur Negative Normal [facility] Comment on above: Performed By: #### H IVCMB, PHEP #### [address] [address] Pond Supervisor: Dom Fowler MD #### CP #### [address] [place] [address] Pond Supervisor: Shakeel Graham MD Color (U) YELLOW Normal [facility] Comment on above: Performed By: #### H IVCMB, PHEP #### [address] [address] Pond Supervisor: Dom Fowler MD #### CP #### [facility] [address] [place] [address] [place] [address] Pond Supervisor: Shakeel Graham MD Glucose Ql (U) Negative Normal NEG [facility] Comment on above: Performed By: #### H IVCMB, PHEP #### [address] [address] Pond Supervisor: Dom Fowler MD #### CP #### [address] [place], [place] [id number] Pond Supervisor: Shakeel Graham MD Hemoglobin, Ur Negative Normal NEG [facility] Comment on above: Performed By: #### H IVCMB, PHEP #### [address] [address] Pond Supervisor: Dom Fowler MD #### CP #### [address] [place] [phone] Pond Supervisor: Shakeel Graham MD Leukocyte esterase Test strip Ql (U) Negative Normal NEG [facility] Comment on above: Performed By: #### H IVCMB, PHEP #### [address] [address] Pond Supervisor: Dom Fowler MD #### CP #### [address] [place] [id number] Pond Supervisor: Shakeel Graham MD Nitrite,Ur Negative Normal NEG [facility] Comment on above: Performed By: #### H IVCMB, PHEP #### [address] [address] Pond Supervisor: Dom Fowler MD #### CP #### [address] [place] [id number] Pond Supervisor: Shakeel Graham MD pH (U) 6.5 [pH] Normal 5.0-9.0 [facility] Comment on above: Performed By: #### H IVCMB, PHEP #### [address] [address] Pond Supervisor: Dom Fowler MD #### CP #### [address] [place] [address] Pond Supervisor: Shakeel Graham MD Protein Ql (U) Negative Normal NEG [facility] Comment on above: Performed By: #### H IVCMB, PHEP #### [facility] [address] [place] [address] Pond Supervisor: Dom Fowler MD #### CP #### [address] [place] [address] Pond Supervisor: Shakeel Graham MD Specific gravity (U) [Rel density] 1.025 High 1.010-1.020 [facility] Comment on above: Performed By: #### H IVCMB, PHEP #### [address] [address] Pond Supervisor: Dom Fowler MD #### CP #### [address] [place] [address] Pond Supervisor: Shakeel Graham MD Turbidity CLEAR Normal CLEAR [facility] Comment on above: Performed By: #### H IVCMB, PHEP #### [address] [address] Pond Supervisor: Dom Fowler MD #### CP #### [address] [place] [address] Pond Supervisor: Shakeel Graham MD Urobilinogen,Ur Normal Normal NORM [facility] Comment on above: Performed By: #### H IVCMB, PHEP #### [address] [address] Pond Supervisor: Dom Fowler MD #### CP #### [address] [place] [address] Pond Supervisor: Shakeel Graham MD Comment NOT REPORTED Normal [facility] Comment on above: Performed By: #### H IVCMB, PHEP #### [facility] [address] [place] [address] Pond Supervisor: Dom Fowler MD #### CP #### [address] [place] [address] Pond Supervisor: Shakeel Graham MD Urinalysis Reflex to Culture on 04-26-2020 Bilirubin Urine Negative NEGATIVE [facility] [place] Color, UA YELLOW YELLOW [place], [place] Glucose, Ur Negative NEGATIVE [place] Interpretation and review of laboratory results Abnormal [place] Ketones Ql (U) Negative NEGATIVE [place] Leukocyte esterase Test strip Ql (U) Negative NEGATIVE [facility], [place] Nitrite, Urine Negative NEGATIVE [facility], [place] pH, UA 6.5 [place] Protein (U) [Mass/Vol] Negative NEGATIVE [place] Specific [place], UA 1.025 High [place], [place] Turbidity UA CLEAR CLEAR [place] Urinalysis Comments NOT REPORTED [facility], [place] Urine Hgb Negative NEGATIVE [place], [place] Urobilinogen, Urine Normal Normal [place] Urinalysis,Microon 0 ----- Normal [facility] Comment on above: Performed By: #### H IVCMB, PHEP #### [place] [address] [place] [address] Pond Supervisor: Dom Fowler MD #### CP #### [address] [place] [address] Pond Supervisor: Shakeel Graham MD Crystals LM Nom (Urine sed) CALCIUM OXALATE Abnormal NONE [facility] Comment on above: Result Comment: 5 TO 10 Performed By: #### H IVCMB, PHEP #### [facility] [address] [place] [address] Pond Supervisor: Dom Fowler MD #### CP #### [address] [place] [address] Pond Supervisor: Shakeel Graham MD Epithelial cells LM.HPF (Urine sed) [#/Area] 0 TO 2 Normal 0-25 [facility] Comment on above: Performed By: #### H IVCMB, PHEP #### [facility] [address] [place] [address] Pond Supervisor: Dom Fowler MD #### CP #### [address] [place] [phone] Pond Supervisor: Shakeel Graham MD Mucus Strands TRACE Abnormal [facility] Comment on above: Performed By: #### H IVCMB, PHEP #### [address] [address] Pond Supervisor: Dom Fowler MD #### CP #### [address] [place] [id number] ( Pond Supervisor: Shakeel Graham MD RBC (U) [#/Vol] None Normal 0-2 [facility] Comment on above: Performed By: #### H IVCMB, PHEP #### [facility] [address] [place] [address] Pond Supervisor: Dom Fowler MD #### CP #### [address] [place] [phone] Pond Supervisor: Shakeel Graham MD WBC (U) [#/Vol] 0 TO 2 Normal 0-5 [facility] Comment on above: Performed By: #### H IVCMB, PHEP #### [facility] [address] [place] [address] Pond Supervisor: Dom Fowler MD #### CP #### [address] [place] [address] Pond Supervisor: Shakeel Graham MD Amorphous sediment LM Ql (Urine sed) NOT REPORTED Normal [facility] Comment on above: Performed By: #### H IVCMB, PHEP #### [facility] [address] [place] [address] Pond Supervisor: Dom Fowler MD #### CP #### [facility] [address] [place] [address] Pond Supervisor: Shakeel Graham MD Bacteria LM.HPF (Urine sed) [#/Area] NOT REPORTED Normal NONE [place] Comment on above: Performed By: #### H IVCMB, PHEP #### [address] [address] Pond Supervisor: Dom Fowler MD #### CP #### [address] [place] [address] Pond Supervisor: Shakeel Graham MD Casts LM.LPF (Urine sed) [#/Area] NOT REPORTED Normal [facility] Comment on above: Performed By: #### H IVCMB, PHEP #### [address] [address] Pond Supervisor: Dom Fowler MD #### CP #### [address] [place] [address] Pond Supervisor: Shakeel Grahma MD Epithelial, Renal NOT REPORTED Normal 0 [facility] Comment on above: Performed By: #### H IVCMB, PHEP #### [address] [address] Pond Supervisor: Dom Fowler MD #### CP #### [facility] [address] [place] [address] [place] [address] Pond Supervisor: Shakeel Graham MD Other Observations NOT REPORTED Normal NREQ [facility] Comment on above: Performed By: #### H IVCMB, PHEP #### [address] [address] Pond Supervisor: Dom Fowler MD #### CP #### [facility] [address] [place] [id number] Pond Supervisor: Shakeel Graham MD Trichomonas NOT REPORTED Normal NONE [place] Comment on above: Performed By: #### H IVCMB, PHEP #### [place] [address] [place], [place] [id number] Pond Supervisor: Dom Fowler MD #### CP #### [facility] [address] [place] [id number] Pond Supervisor: Shakeel Graham MD Yeast LM Ql (Urine sed) NOT REPORTED Normal NONE [facility] Comment on above: Performed By: #### H IVCMB, PHEP #### [facility] [address] [place], [place] [id number] Pond Supervisor: Dom Fowler MD #### CP #### [facility] [address] [place] [address] [place] [address] Pond Supervisor: Shakeel Graham MD ED Clinical Summaryon 2019 ED Clinical Summary [address] [address] ED Clinical Summary Person Information Name: Kathryn Ervin/[facility] Age: 25 Years : 1995 Sex: Female PCP: Marital Status: Single Phone: Race: White Ethnicity: Not or Language: Yoruba Visit Reason: Drug withdrawal; Drug withdrawal Acuity: 3 Enc Type: Emergency Med Service: Emergency Medicine Arrival: 03/16/2020 20:10:45 Discharge: 03/17/2020 02:12:00 LOS: 000 06:02 Checkin: 03/16/2020 20:10:45 Checkout: 03/17/2020 02:12:00 Dispo Type: Home or Self Care Address: [address] [place] [address] Provider Notes: Diagnosis: 1:Affective disorder; 2:Drug usage [...] range between ( 27.2 and 40.8 ) [place] Auto: 11.4 % -- Normal range between [...] range between ( 36.0 and 46.0 ) [place] Absolute: 1.5 x10 MCH: 27.4 pg -- [...] 03/16/2020 20:20:41 Follow up: With: Address: When: [facility] - In [place], [place] Within 1 to 2 days Discharge Orders: Discharge Patient 03/17/20 1:45:00 EDT, Discharge to Home, Self Patient Education Information: Understanding Methamphetamine Abuse and Addiction; Treating Affective (Mood) Disorders AAPCC Poison Help line: . [facility] Health Hotline: [place] Tobacco Quit Line: [facility] ([place], [place]) [address]: [phone] [place], [place]) [address]: [phone] [facility] [address], [place]: [phone] Normal [facility] hCG Quantitativeon 0 Beta hCG Qnt 1.7 mIU/mL Normal 0.0-4.9 [facility] Comment on above: Result Comment: 0.0 - 4.9 Negative for 5.0 - 25.0 Indeterminant for : Suggest repeat in 72 hours. >25.0 Positive for Performed By: #### H CG ####[place] [address] .UA Microscp Aon 03-16-2020 UA Hyline Cast Qual >20 Abnormal Negative [facility] [place] [facility] Comment on above: Performed By: #### C [id number] ####[address] [address] UA Mucus Present Abnormal Absent [facility] Comment on above: Performed By: #### C [id number] ####[address] [address] UA RBC Quant 12 /HPF High 0-5 [facility] Comment on above: Performed By: #### C [id number] ####[address] [address] UA Squepi Cells Quant 6 /HPF Normal 0-29 [facility] Comment on above: Performed By: #### C [id number] ####[address] [address] UA WBC Quant 7 /HPF High 0-5 [facility] Comment on above: Performed By: #### C D:[id number] ####[address] [address] [place] [address] .eGFRon 03-16-2020 eGFR AA 52 mL/min/1.73m? Low >=60 [facility] Comment on above: Result Comment: Resu lt = 0-14.9 mL/min/1.73 m2 Kidney failure or Dialysis Result = 15-29 mL/min/1.73 m2 Severe decrease in GFR Result = 30-59 mL/min/1.73 m2 Moderate decrease in GFR Result >= 60 mL/min/1.73 m2 Normal or increased GFR Performed By: #### E GFR #### [address] [address] eGFR Non-AA 43 mL/min/1.73m? Low >=60 [facility] Comment on above: Result Comment: Resu lt [...] dosing. Performed By: #### E GFR #### [address] [address] CBC w/ Diffon 03-16-2020 Erythrocyte distribution width (RBC) [Ratio] 15.9 % High 11.6-14.8 [facility] Comment on above: Performed By: #### C BC #### [address] [address] Hematocrit (Bld) [Volume fraction] 37.5 % Normal 36.0-46.0 [facility] Comment on above: Performed By: #### C BC #### [address] [address] Hemoglobin (Bld) [Mass/Vol] 12.5 g/dL Normal 12.0-16.0 [facility] Comment on above: Performed By: #### C BC #### [address] [address] MCH (RBC) [Entitic mass] 27.4 pg Normal 27.0-35.0 [facility] Comment on above: Performed By: #### C BC #### [address] [address] MCHC (RBC) [Mass/Vol] 33.2 % Normal 31.0-37.0 [facility] Comment on above: Performed By: #### C BC #### [address] [address] MCV (RBC) [Entitic vol] 82.4 fL Normal 80.0-100.0 [facility] Comment on above: Performed By: #### C BC #### [address] [address] Platelet mean volume (Bld) [Entitic vol] 9.4 fL Normal 6.7-10.6 [facility] Comment on above: Performed By: #### C BC #### [address] [address] Platelets (Bld) [#/Vol] 307 x10*3/mcL Normal 150-350 [facility] Comment on above: Performed By: #### C BC #### [address] [address] RBC (Bld) [#/Vol] 4.55 x10*6/mcL Normal 3.80-5.20 [facility] Comment on above: Performed By: #### C BC #### [address] [address] WBC (Bld) [#/Vol] 12.9 x10*3/mcL High 4.5-11.0 [facility] Comment on above: Performed By: #### C BC #### [address] [address] CMPon 03-16-2020 Albumin [Mass/Vol] 5.2 g/dL High 3.2-4.9 [facility] Comment on above: Result Comment: [facility] Laboratory updated the methodology used for albumin testing on 04/24/18. Albumin measurement was performed using a bromcresol purple dye-binding assay. Performed By: #### C OMP #### [address] [address] Albumin/Globulin [Mass ratio] 1.5 {ratio} Normal 1.1-2.2 [facility] Comment on above: Performed By: #### C OMP #### [address] [address] Alk Phos 47 IU/L Normal 32-91 [facility] Comment on above: Performed By: #### C OMP #### [address] [address] ALT [Catalytic activity/Vol] 19 U/L Normal 14-54 [facility] Comment on above: Performed By: #### C OMP #### [address] [address] Anion gap [Moles/Vol] 22 mmol/L High 7-17 [facility] Comment on above: Performed By: #### C OMP #### [address] [address] AST [Catalytic activity/Vol] 31 U/L Normal 15-41 [facility] Comment on above: Performed By: #### C OMP #### [address] [address] Bili Total 1.4 mg/dL High 0.3-1.2 [facility] Comment on above: Performed By: #### C OMP #### [address] [address] Calcium [Mass/Vol] 10.2 mg/dL Normal 8.5-10.3 [facility] Comment on above: Performed By: #### C OMP #### [address] [address] Chloride [Moles/Vol] 100 mmol/L Normal 98-110 [facility] Comment on above: Performed By: #### C OMP #### [address] [address] CO2 [Moles/Vol] 19 mmol/L Low 22-32 [facility] Comment on above: Performed By: #### C OMP #### [address] [address] Creatinine [Mass/Vol] 1.47 mg/dL High 0.44-1.03 [facility] Comment on above: Performed By: #### C OMP #### [address] [address] Glucose [Mass/Vol] 85 mg/dL Normal 70-99 [facility] Comment on above: Performed By: #### C OMP #### [address] [address] Potassium [Moles/Vol] 3.7 mmol/L Normal 3.4-4.8 [facility] Comment on above: Performed By: #### C OMP #### [address] [address] Protein [Mass/Vol] 8.7 g/dL High 6.5-8.1 [facility] Comment on above: Performed By: #### C OMP #### [address] [address] Sodium [Moles/Vol] 137 mmol/L Normal 133-142 [facility] Comment on above: Performed By: #### C OMP #### [address] [address] Urea nitrogen [Mass/Vol] 25 mg/dL Normal 8-26 [facility] Comment on above: Performed By: #### C OMP #### [address] [address] Urea nitrogen/Creatinine [Mass ratio] 17.0 mg/mg Normal 10.0-20.0 [facility] Comment on above: Performed By: #### C OMP #### [address] [address] CPKon 03-16-2020 Creatine Phosphokinase 439 IU/L High 38-234 [facility] Comment on above: Performed By: #### C P #### [address] [address] Diff Autoon 03-16-2020 Baso Absolute 0.0 x10*3/mcL Normal 0.0-0.2 [facility] Comment on above: Performed By: #### . Automated Diff #### [address] [address] Basophils/100 WBC (Bld) 0.4 % Normal 0.0-1.5 [facility] Comment on above: Performed By: #### . Automated Diff #### [address] [address] Eos Absolute 0.0 x10*3/mcL Normal 0.0-0.4 [facility] Comment on above: Performed By: #### . Automated Diff #### [address] [address] Eosinophils/100 WBC (Bld) 0.1 % Normal 0.0-5.4 [facility] Comment on above: Performed By: #### . Automated Diff #### [address] [address] Lymphocytes (Bld) [#/Vol] 1.4 x10*3/mcL Normal 1.0-4.8 [facility] Comment on above: Performed By: #### . Automated Diff #### [address] [address] Lymphocytes/100 WBC (Bld) 10.8 % Low 27.2-40.8 [facility] Comment on above: Performed By: #### . Automated Diff #### [address] [address] Twiggs Absolute 1.5 x10*3/mcL High 0.1-1.1 [facility] Comment on above: Performed By: #### . Automated Diff #### [address] [address] [place] [address] Monocytes/100 WBC (Bld) 11.4 % Normal 3.7-11.9 [facility] Comment on above: Performed By: #### . Automated Diff #### [address] [address] Neutro Absolute 10.0 x10*3/mcL High 1.8-7.7 [facility] [place] [facility] Comment on above: Performed By: #### . Automated Diff #### [address] [address] Neutro Auto 77.3 % High 47.2-70.8 [facility] Comment on above: Performed By: #### . Automated Diff #### [address] [address] ED Note-Nursingon 03-16-2020 ED Note-Nursing Lab called about add ons Electronically signed by Barbara Holman 03/16/20 20:49 EDT Normal [facility] ED Note-Physicianon 03-16-20 ED Note-Physician Chief Complaint [...] that she has residential set up at [facility] in [place], [place] but she has to detox first. [...] as well. She was seen by Alonso, social media project manager who has arranged for her to go to [facility] tomorrow as patient is interested in treatment. Verbally contracted to safety and filled out a safety plan. Alonso with social work spoke with director of the biophysics facility, Jelena who will arrange for further follow-up when they arrive tomorrow. Family is agreeable with plan. Patient has good support. They will return if any changes of symptoms or concern. Silvia Castañeda scribing for and in the presence of Dr. Cornell. Scribe Attestation: The information in this document, created by the medical operations supervisor for me, accurately reflects the services I [...] High Lymph Auto 03/16/20 20:39 10.8 Low Twiggs Auto 03/16/20 20:39 11.4 Eos Auto 03/16/20 20:39 0.1 Basophil Auto 03/16/20 20:39 0.4 Neutro Absolute 03/16/20 20:39 10.0 High Lymph Absolute 03/16/20 20:39 1.4 Twiggs Absolute 03/16/20 20:39 1.5 High Eos Absolute [...] Lima Cornell MD 03/17/2020 04:16 EDT Normal [facility] Ethanolon 03-16-2020 Ethanol [Mass/Vol] mg/dL Normal <=9 [facility] Comment on above: Result Comment: To c onvert mg/dL to g/dL, divide result by 1,000. Legal limit of intoxication is 80 mg/dL (0.08 g/dL). Performed By: #### A LC #### [address] [address] UA w Culture if Indon 2019 Color (U) Terri Normal [facility] Comment on above: Performed By: #### U CI #### [address] [address] Glucose (U) [Mass/Vol] Negative Normal Negative [facility] Comment on above: Performed By: #### U CI #### [address] [address] Ketones Ql (U) 20 mg/dL Abnormal Negative [facility] Comment on above: Performed By: #### U CI #### [address] [address] UA Blood Small Abnormal Negative [facility] Comment on above: Performed By: #### U CI #### [address] [address] UA Clarity Cloudy Normal [facility] Comment on above: Performed By: #### U CI #### [address] [address] UA Leukocyte Esterase Trace Abnormal Negative [facility] Comment on above: Performed By: #### U CI #### [address] [address] UA Nitrite Negative Normal Negative [facility] Comment on above: Performed By: #### U CI #### [address] [address] UA pH 5.0 Normal 4.5 - 7.8 [facility] Comment on above: Performed By: #### U CI #### [address] [address] UA Protein 100 mg/dL Abnormal Negative [facility] Comment on above: Performed By: #### U CI #### [address] [address] UA Source Clean Catch Normal [facility] Comment on above: Performed By: #### U CI #### [address] [address] UA Spec Grav 1.025 Normal 1.003-1.035 [facility] Comment on above: Performed By: #### U CI #### [address] [address] UA Urobilinogen 0.2 mg/dL Normal 0.2 - 1.0 [facility] Comment on above: Performed By: #### U CI #### [address] [address] Urobilinogen Qn (U) Small Abnormal Negative [facility] Comment on above: Performed By: #### U CI #### [address] [address] UDS Compon 03-16-2020 Creatinine [Mass/Vol] mg/dL Normal [facility] Comment on above: Performed By: #### C [id number] #### [address] [address] Ur Amph Scrn Positive Abnormal NEG = <1000 [facility] Comment on above: Result Comment: This unconfirmed positive screening result is to be used for medical treatment purposes only. Unconfirmed screening results must not be used for non-medical purposes. (e.g. employment testing, legal testing). Performed By: #### C [id number] #### [address] [address] Ur Anastasia Scrn Negative Normal NEG = <200 [facility] Comment on above: Performed By: #### C [id number] #### [facility] [address] [place] [address] Ur Benzodia Scrn Negative Normal NEG = <200 [facility] Comment on above: Performed By: #### C D:[id number] #### [facility] [address] [place] [address] Ur Cannab Scrn Negative Normal NEG = <50 [facility] Comment on above: Performed By: #### C D:[id number] #### [facility] [address] [place] [address] Ur Cocaine Scrn Negative Normal NEG = <300 [facility] Comment on above: Performed By: #### C D:[id number] #### [facility] [address] [place] [address], [place] [address] Ur Methadone Scn Negative Normal NEG = <300 [facility] Comment on above: Performed By: #### C D:[id number] #### [address] [place] [address] Ur Opiate Scrn Negative Normal NEG = <300 [facility] Comment on above: Performed By: #### C D:[id number] #### [facility] [address] [place] [address] [place] [address] Ur Oxy Screen Negative Normal NEG = <100 [facility] Comment on above: Performed By: #### C D:[id number] #### [facility] [address] [place] [address] Ur Oxy Scrn Qnt 54 ng/mL Normal <=99 [facility] Comment on above: Performed By: #### C D:[id number] #### [facility] [address] [place] [address] [place] [address] Ur PCP Scrn Negative Normal NEG = <25 [facility] Comment on above: Performed By: #### C D:[id number] #### [address] [place] [address] UA pH 5.0 Normal 4.5 - 7.8 [facility] Comment on above: Performed By: #### C [id number] #### [facility] [address] [place] [address] UA Spec Grav 1.024 Normal 1.003-1.035 [facility] Comment on above: Performed By: #### C D:[id number] #### [facility] [address] [place] [address] Chlamydia/GC DNA, Uron 11-23 Chlamydia Probe, Ur Negative Normal NEG [facility] Comment on above: Result Comment: CHLA MYDIA [...] Performed By: #### H IVCMB, PHEP #### [address] [id number] [place] Supervisor: Dom Fowler MD #### CP #### [facility] [address] [place] [id number] [place] Supervisor: Shakeel Graham MD Gonorrhea Probe, Ur Negative Normal NEG [facility] Comment on above: Result Comment: NEIS SERIA [...] Performed By: #### H IVCMB, PHEP #### [address] [place], [place] [id number] P[place] Supervisor: Dom Fowler MD #### CP #### [facility] [address] [place] [address] P[place] Supervisor: Shakeel Graham MD Cult,Urineon 11-22-2019 Cult,Urine Specimen Description .VOIDED URINE Special Requests NOT REPORTED Culture NO SIGNIFICANT GROWTH Report Status FINAL 11/22/2019 Normal [facility] Comment on above: Performed By: #### H IVCMB, PHEP #### [address] [place] [address] Pond Supervisor: Dom Fowler MD #### CP #### [address] [place] [address] Pond Supervisor: Shakeel Graham MD HIV Ag/Abon 11-21-2019 HIV Ag/Ab NONREACTIVE Normal [facility] Comment on above: Result Comment: No l aboratory evidence of HIV infection. If acute HIV infection is suspected, consider testing for HIV-1 RNA. Performed By: #### H IVCMB, PHEP #### [address] [address] [place] Supervisor: Dom Fowler MD #### CP #### [address] [place] [address] Pond Supervisor: Shakeel Graham MD HIV Screenon 11-21-2019 HIV Ag/Ab NONREACTIVE NONREACTIVE [place], [place] Comment on above: No laboratory eviden ce of HIV infection. If acute HIV infection is suspected, consider testing for HIV-1 RNA. Hep C Abon 11-21-2019 Hep C Ab REACTIVE Abnormal [facility] Comment on above: Result Comment: The hepatitis [...] Performed By: #### H IVCMB, PHEP #### [address] [place] [address] Pond Supervisor: Dom Fowler MD #### CP #### [address] [place] [address] Pond Supervisor: Shakeel Graham MD Profileon 0 Hep B Surf Ag NONREACTIVE Normal NR [facility] Comment on above: Performed By: #### H IVCMB, PHEP #### [address] [place] [address] Pond Supervisor: Dom Fowler MD #### CP #### [address] [place] [address] Pond Supervisor: Shakeel Graham MD T.pallidum Ab Screen NONREACTIVE Normal NR [facility] Comment on above: Result Comment: T. pallidum antibodies are not detected. There is no serological evidence of infection with T. pallidum (early primary syphilis cannot be excluded). Retest in 2-4 weeks if syphilis is clinically suspect. Performed By: #### H IVCMB, PHEP #### [address] [address] P[place] Supervisor: Dom Fowler MD #### CP #### [address] [place], [place] [id number] Pond Supervisor: Shakeel Graham MD Rubella Ab, IgG 323.1 IU/mL Normal [facility] Comment on above: Result Comment: REFERENCE RANGE: <5.0 NON-REACTIVE (non-immune) 5.0 TO 9.9 EQUIVOCAL >=10.0 REACTIVE (immune) Performed By: #### H IVCMB, PHEP #### [address] [place] [address] Pond Supervisor: Dom Fowler MD #### CP #### [address] [place], [place] [address] Pond Supervisor: Shakeel Graham MD HCG, Quanton 11-20-2019 HCG, Quant [address] IU/L High <5 [facility] Comment on above: Result Comment: Non-preg premeno [...] Performed By: #### H IVCMB, PHEP #### [facility] [address] [place] [address] Pond Supervisor: Dom Fowler MD #### CP #### [facility] [address] [place] [address] Pond Supervisor: Shakeel Graham MD HCG, Quantitative, on 11-20-2019 hCG Quant [address] High <5 IU/L [place], [place] Comment on above: Non-preg premeno <=5 Postmeno <=8 Male <=3 If HCG results do not concur with clinical observations, additional testing to confirm results is recommended. Elevated results not associated with may be found in patients with other diseases such as tumors of the germ cells (testis, ovaries, etc.), bladder, pancreas, stomach, lungs, and liver. Interpretation and review of laboratory results Abnormal [place], [place] Hepatitis C Antibodyon 11-19 Hepatitis C Ab REACTIVE Abnormal NONREACTIVE [place], [place] Comment on above: The hepatitis C [...] Interpretation and review of laboratory results Abnormal [place], [place] TYPE AND SCREENon 0 11-20-2019 ABO/Rh Positive [place], [place] Profileon 0 Abs. Basophil 0.03 k/uL Normal 0.00-0.20 [place] Comment on above: Performed By: #### H IVCMB, PHEP #### [facility] [address] [place], [place] [id number] P[place] Supervisor: Dom Fowler MD #### CP #### [facility] [address] [place] [id number] [place] Supervisor: Shakeel Graham MD Abs.Imm.Granulocyte <0.03 Normal 0.00-0.30 [facility] Comment on above: Performed By: #### H IVCMB, PHEP #### [address] [address] [place] Supervisor: Dom Fowler MD #### CP #### [facility] [address] [place] [address] [place] [phone] P[place] Supervisor: Shakeel Graham MD Abs.Neutrophil (Seg) 2.95 k/uL Normal 1.50-8.10 [facility] Comment on above: Performed By: #### H IVCMB, PHEP #### [place] [address] Pond Supervisor: Dom Fowler MD #### CP #### [address] [place] [id number] ( Pond Supervisor: Shakeel Graham MD Basophils/100 WBC (Bld) 1 % Normal 0-2 [facility] Comment on above: Performed By: #### H IVCMB, PHEP #### [address] [address] P[place] Supervisor: Dom Fowler MD #### CP #### [address] [place] [id number] ( Pond Supervisor: Shakeel Graham MD Eosinophils (Bld) [#/Vol] 0.09 10*3/uL Normal 0.00-0.44 [facility] Comment on above: Performed By: #### H IVCMB, PHEP #### [address] [address] [place] Supervisor: Dom Fowler MD #### CP #### [address] [place], [place] [address] P[place] Supervisor: Shakeel Graham MD Eosinophils/100 WBC (Bld) 2 % Normal 1-4 [facility] Comment on above: Performed By: #### H IVCMB, PHEP #### [address] [address] [place] Supervisor: Dom Fowler MD #### CP #### [address] [place], [place] [id number] P[place] Supervisor: Shakeel Graham MD Erythrocyte distribution width (RBC) [Ratio] 14.0 % Normal 11.8-14.4 [facility] Comment on above: Performed By: #### H IVCMB, PHEP #### [address] [address] [place] Supervisor: Dom Fowler MD #### CP #### [address] [place], [place] [address]68283 Pond Supervisor: Shakeel Graham MD Hematocrit (Bld) [Volume fraction] 37.7 % Normal 36.3-47.1 [facility] Comment on above: Performed By: #### H IVCMB, PHEP #### [address] [address] P[place] Supervisor: Dom Fowler MD #### CP #### [address] [place], [place] [address] Pond Supervisor: Shakeel Graham MD Hemoglobin (Bld) [Mass/Vol] 11.8 g/dL Low 11.9-15.1 [facility] Comment on above: Performed By: #### H IVCMB, PHEP #### [address] [address] P[place] Supervisor: Dom Fowler MD #### CP #### [address] [place] [id number] [place] Supervisor: Shakeel Graham MD Immature granulocytes (Bld) [#/Vol] 0 % Normal 0 [facility] Comment on above: Performed By: #### H IVCMB, PHEP #### [address] [address] P[place] Supervisor: Dom Fowler MD #### CP #### [facility] [address] [place] [address] [address] [place] [id number] P[place] Supervisor: Shakeel Graham MD Lymphocytes (Bld) [#/Vol] 1.50 10*3/uL Normal 1.10-3.70 [facility] Comment on above: Performed By: #### H IVCMB, PHEP #### [address] [id number] [place] Supervisor: Dom Fowler MD #### CP #### [address] [place] [phone] P[place] Supervisor: Shakeel Graham MD Lymphocytes/100 WBC (Bld) 30 % Normal 24-43 [facility] Comment on above: Performed By: #### H IVCMB, PHEP #### [address] [address] Pond Supervisor: Dom Fowler MD #### CP #### [address] [place] [phone] ( Pond Supervisor: Shakeel Graham MD MCH (RBC) [Entitic mass] 26.5 pg Normal 25.2-33.5 [facility] Comment on above: Performed By: #### H IVCMB, PHEP #### [address] [address] P[place] Supervisor: Dom Fowler MD #### CP #### [address] [place] [id number] P[place] Supervisor: Shakeel Graham MD MCHC (RBC) [Mass/Vol] 31.3 g/dL Normal 28.4-34.8 [facility] Comment on above: Performed By: #### H IVCMB, PHEP #### [address] [address] Pond Supervisor: Dom Fowler MD #### CP #### [facility] [address] [place] [phone] Pond Supervisor: Shakeel Graham MD MCV (RBC) [Entitic vol] 84.5 fL Normal 82.6-102.9 [facility] Comment on above: Performed By: #### H IVCMB, PHEP #### [address] [address] P[place] Supervisor: Dom Fowler MD #### CP #### [address] [place] [phone] ( Pond Supervisor: Shakeel Graham MD Monocytes (Bld) [#/Vol] 0.37 10*3/uL Normal 0.10-1.20 [facility] Comment on above: Performed By: #### H IVCMB, PHEP #### [address] [address] P[place] Supervisor: Dom Fowler MD #### CP #### [address] [place] [id number] P[place] Supervisor: Shakeel Graham MD Monocytes/100 WBC (Bld) 8 % Normal 3-12 [facility] Comment on above: Performed By: #### H IVCMB, PHEP #### [address] [address] [place] Supervisor: Dom Fowler MD #### CP #### [facility] [address] [place] [address] [place] [address] Pond Supervisor: Shakeel Graham MD Neutrophil (Seg) 59 % Normal 36-65 [facility] Comment on above: Performed By: #### H IVCMB, PHEP #### [address] [place] [address] Pond Supervisor: Dom Fowler MD #### CP #### [facility] [address] [place], [place] 979[address]83 Pond Supervisor: Shakeel Graham MD NRBC Automated 0.0 per 100 WBC Normal 0.0 [facility] Comment on above: Performed By: #### H IVCMB, PHEP #### [address] [address] Pond Supervisor: Dom Fowler MD #### CP #### [facility] [address] [place] [address] Dr. [place] [phone] Pond Supervisor: Shakeel Graham MD Platelet mean volume (Bld) [Entitic vol] 11.2 fL Normal 8.1-13.5 [facility] Comment on above: Performed By: #### H IVCMB, PHEP #### [address] [address] Pond Supervisor: Dom Fowler MD #### CP #### [address] [place], [place] [phone] Pond Supervisor: Shakeel Graham MD Platelets (Bld) [#/Vol] 254 10*3/uL Normal 138-453 [facility] Comment on above: Performed By: #### H IVCMB, PHEP #### [address] [address] Pond Supervisor: Dom Fowler MD #### CP #### [facility] [address] [place] [address] Dr. [place], [place] [phone] Pond Supervisor: Shakeel Graham MD RBC (Bld) [#/Vol] 4.46 10*6/uL Normal 3.95-5.11 [facility] Comment on above: Performed By: #### H IVCMB, PHEP #### [address] [place] [address] Pond Supervisor: Dom Fowler MD #### CP #### [facility] [address] [place] [address] [place] [address] Pond Supervisor: Shakeel Graham MD WBC (Bld) [#/Vol] 5.0 10*3/uL Normal 3.5-11.3 [facility] Comment on above: Performed By: #### H IVCMB, PHEP #### [address] [address] Pond Supervisor: Dom Fowler MD #### CP #### [address] [place] [phone] Pond Supervisor: Shakeel Graham MD Auto Diff Performed NOT REPORTED Normal [facility] Comment on above: Performed By: #### H IVCMB, PHEP #### [address] [address] Pond Supervisor: Dom Fowler MD #### CP #### [address] [place] [phone] Pond Supervisor: Shakeel Graham MD Platelets (Bld) [#/Vol] NOT REPORTED Normal [facility] Comment on above: Performed By: #### H IVCMB, PHEP #### [address] [address] Pond Supervisor: Dom Fowler MD #### CP #### [address] [place] [address] Pond Supervisor: Shakeel Graham MD RBC morphology finding Nom (Bld) NOT REPORTED Normal [facility] Comment on above: Performed By: #### H IVCMB, PHEP #### [address] [address] Pond Supervisor: Dom Fowler MD #### CP #### [facility] [address] [place] [address] Dr. [place], [place] [phone] Pond Supervisor: Shakeel Graham MD WBC Morphology NOT REPORTED Normal [facility] Comment on above: Performed By: #### H IVCMB, PHEP #### [address] [address] Pond Supervisor: Dom Fowler MD #### CP #### [address] [place], [place] [phone] Pond Supervisor: Shakeel Graham MD Type + Scrnon 11-19 Type + Scrn Negative Normal [facility] Comment on above: Performed By: #### H IVCMB, PHEP #### [address] [id number] Pond Supervisor: Dom Fowler MD #### CP #### [address] [place], [place] [phone] Pond Supervisor: Shakeel Graham MD Toxicology Scree, Urineon Amphetamine(s),Ur Negative Normal NEG [facility] Comment on above: Performed By: #### H IVCMB, PHEP #### [address] [address] Pond Supervisor: Dom Fowler MD #### CP #### [address] [place], [place] [phone] Pond Supervisor: Shakeel Graham MD Barbiturate(s),Ur Negative Normal NEG [facility] Comment on above: Performed By: #### H IVCMB, PHEP #### [address] [address] Pond Supervisor: Dom Fowler MD #### CP #### [address] [place], [place] [phone] Pond Supervisor: Shakeel Graham MD Benzodiazepine(s) Negative Normal [facility] Comment on above: Performed By: #### H IVCMB, PHEP #### [address] [address] Pond Supervisor: Dom Fowler MD #### CP #### [facility] [address] [place] [address] Dr. [place], [place] [phone] Pond Supervisor: Shakeel Graham MD Buprenorphrine, Ur Negative Normal [facility] Comment on above: Performed By: #### H IVCMB, PHEP #### [address] [address] Pond Supervisor: Dom Fowler MD #### CP #### [facility] [address] [place] [address] Dr. [place], [place] [phone] Pond Supervisor: Shakeel Graham MD Cannabinoid(s),Ur Negative Normal [facility] Comment on above: Performed By: #### H IVCMB, PHEP #### [address] [address] Pond Supervisor: Dom Fowler MD #### CP #### [address] [place], [place] [phone] Pond Supervisor: Shakeel Graham MD Cocaine Metabolite Negative [facility] Comment on above: Performed By: #### H IVCMB, PHEP #### [address] [address] Pond Supervisor: Dom Fowler MD #### CP #### [facility] [address] [place] [address] Dr. [place], [place] [phone] Pond Supervisor: Shakeel Graham MD Methadone Ql (U) Negative Normal NEG [facility] Comment on above: Performed By: #### H IVCMB, PHEP #### [address] [address] Pond Supervisor: Dom Fowler MD #### CP #### [facility] [address] [place] [address] Dr. [place], [place] [phone] Pond Supervisor: Shakeel Graham MD Methamphetamine, Ur Negative Normal NEG [facility] Comment on above: Performed By: #### H IVCMB, PHEP #### [facility] [address] [place] [address] Pond Supervisor: Dom Fowler MD #### CP #### [address] [place], [place] [phone] Pond Supervisor: Shakeel Graham MD Opiate(s), Ur Negative Normal NEG [place] Comment on above: Performed By: #### H IVCMB, PHEP #### [address] [address] Pond Supervisor: Dom Fowler MD #### CP #### [address] [place], [place] [phone] Pond Supervisor: Shakeel Graham MD Oxycodone, Urine Negative Normal NEG [facility] Comment on above: Performed By: #### H IVCMB, PHEP #### [address] [address] Pond Supervisor: Dom Fowler MD #### CP #### [address] [place], [place] [phone] Pond Supervisor: Shakeel Graham MD Phencyclidine, Ur Negative Normal NEG [facility] Comment on above: Performed By: #### H IVCMB, PHEP #### [address] [address] Pond Supervisor: Dom Fowler MD #### CP #### [address] [place], [place] 6695083 Pond Supervisor: Shakeel Graham MD Propoxyphene,Urine Negative Normal NEG [facility] Comment on above: Performed By: #### H IVCMB, PHEP #### [address] [address] Pond Supervisor: Dom Fowler MD #### CP #### [facility] [address] [place] [address] [place] [address] Pond Supervisor: Shakeel Graham MD Tricyclic antidepressants Screen Ql (U) Negative Normal NEG [facility] Comment on above: Result Comment: Drug screen results are to be used for medical purposes only. All positive results are unconfirmed. Testing for employment or legal uses should be sent to a reference laboratory for confirmation. Performed By: #### H IVCMB, PHEP #### [address] [address] Pond Supervisor: Dom Fowler MD #### CP #### [address] [place], [place] [phone] Pond Supervisor: Shakeel Graham MD Interpretive Info NOT REPORTED Normal [facility] Comment on above: Performed By: #### H IVCMB, PHEP #### [address] [address] Pond Supervisor: Dom Fowler MD #### CP #### [address] [place], [place] [phone] Pond Supervisor: Shakeel Graham MD MDMA, Urine NOT REPORTED Normal NEG [place] Comment on above: Performed By: #### H IVCMB, PHEP #### [address] [address] Pond Supervisor: Dom Fowler MD #### CP #### [facility] [address] [place] [address] Dr. [place], [place] [phone] Pond Supervisor: Shakeel Graham MD Urine Drug Screen, Magda grierkalyani 11-20-2019 Amphetamine Screen, Ur Negative NEGATIVE [facility], [place] Barbiturate Screen, Ur Negative NEGATIVE [facility] [place] Benzodiazepine Screen, Urine Negative NEGATIVE [facility] [place] Buprenorphine Urine Negative NEGATIVE [facility] [place] Cannabinoid Scrn, Ur Negative NEGATIVE [facility] [place] Cocaine Metabolite, Urine Negative NEGATIVE [facility] [place] MDMA, Urine NOT REPORTED [facility]IVE [facility] [place] [place] Methadone Screen, Urine Negative NEGATIVE [facility] [place] Methamphetamine, Urine Negative NEGATIVE [facility] [place] Opiates, Urine Negative NEGATIVE [facility] [place] Oxycodone Screen, Ur Negative NEGATIVE [facility] [place] Phencyclidine, Urine Negative NEGATIVE [facility] [place] Propoxyphene, Urine Negative NEGATIVE [facility] [place] Test Information NOT REPORTED [facility] [place] Tricyclic Antidepressants, Urine Negative NEGATIVE [facility] [place] Comment on above: Drug screen results are to be used for medical purposes only. All positive results are unconfirmed. Testing for employment or legal uses should be sent to a reference laboratory for confirmation. Chlamydia/GC DNA, Uron 06-20 Chlamydia Probe, Ur Negative Normal NEG [facility] Comment on above: Result Comment: CHLA MYDIA [...] nucleic acid target. Performed By: #### U [facility] #### [address] [address] Pond Supervisor: Dom Fowler MD Gonorrhea Probe, Ur Negative Normal NEG [facility] Comment on above: Result Comment: NEIS SERIA [...] target. Performed By: #### U CGP #### [address] [place] [address] Pond Supervisor: Dom Fowler MD Cult,Urineon 06-20-2019 Cult,Urine Specimen Description .CLEAN CATCH URINE Special Requests NOT REPORTED Culture NO SIGNIFICANT GROWTH Report Status FINAL 06/20/2019 Normal [facility] Comment on above: Performed By: #### H IVCMB, PHEP #### [address] [address] Pond Supervisor: Dom Fowler MD #### CP #### [facility] [address] [place] [address] Pond Supervisor: Shakeel Graham MD HIV Ag/Abon 06-20-2019 HIV Ag/Ab NONREACTIVE Normal [facility] Comment on above: Result Comment: No l aboratory evidence of HIV infection. If acute HIV infection is suspected, consider testing for HIV-1 RNA. Performed By: #### A HCV, HIVCMB #### [address] [address] Pond Supervisor: Dom Fowler MD Hep C Abon 06-20-2019 Hep C Ab REACTIVE Abnormal [facility] Comment on above: Result Comment: The hepatitis [...] Performed By: #### A HCV, HIVCMB #### [address] [address] Pond Supervisor: Dom Fowler MD Profileon 9 T.pallidum Ab Screen NONREACTIVE Normal [facility] Comment on above: Result Comment: T. pallidum antibodies are not detected. There is no serological evidence of infection with T. pallidum (early primary syphilis cannot be excluded). Retest in 2-4 weeks if syphilis is clinically suspect. Performed By: #### P RENAT #### [address] [place] [address] Pond Supervisor: Dom Fowler MD [facility] [address] [place] [address] Dr. [place], [place] [phone] Pond Supervisor: Shakeel Graham MD Hep B Surf Ag NONREACTIVE Normal NR [facility] Comment on above: Performed By: #### P RENAT #### [address] [address] Pond Supervisor: Dom Fowler MD [address] [place] [address] Pond Supervisor: Shakeel Graham MD Rubella Ab, IgG 286.1 IU/mL Normal [facility] Comment on above: Result Comment: REFERENCE RANGE: <5.0 NON-REACTIVE (non-immune) 5.0 TO 9.9 EQUIVOCAL >=10.0 REACTIVE (immune) Performed By: #### P RENAT #### [address] [address] Pond Supervisor: Dom Fowler MD [address] [place] [address] Pond Supervisor: Shakeel Graham MD HCG, Quanton 06-19-2019 HCG, Quant 13622 IU/L High <5 [facility] Comment on above: Result Comment: Non-preg premeno <=5 Postmeno <=8 Male <=3 If HCG results do not concur with clinical observations, additional testing to confirm results is recommended. Elevated results not associated with may be found in patients with other diseases such as tumors of the germ cells (testis, ovaries, etc.), bladder, pancreas, stomach, lungs, and liver. Performed By: #### B HCG #### [facility] [address] [place] [address] Dr. [place], [place] [phone] Pond Supervisor: Shakeel Graham MD HCG, Quantitative, on 06-19-2019 hCG Quant 93535 High <5 IU/L [place] Comment on above: Non-preg premeno <=5 Postmeno <=8 Male <=3 If HCG results do not concur with clinical observations, additional testing to confirm results is recommended. Elevated results not associated with may be found in patients with other diseases such as tumors of the germ cells (testis, ovaries, etc.), bladder, pancreas, stomach, lungs, and liver. Interpretation and review of laboratory results Abnormal [place] HIV Screenon 06-19-2019 HIV Ag/Ab NONREACTIVE NONREACTIVE [place], [place] Comment on above: No laboratory eviden ce of HIV infection. If acute HIV infection is suspected, consider testing for HIV-1 RNA. Hepatitis C Antibodyon 06-19 Hepatitis C Ab REACTIVE Abnormal [facility]REACTIVE [facility] [place] [place] Comment on above: The hepatitis C [...] Interpretation and review of laboratory results Abnormal [place] PROFILE Ion 019 Basophils (Bld) [#/Vol] 10*3/uL [place] Basophils/100 WBC (Bld) 1 % 0 - 2 % [place] Differential Type NOT REPORTED [place] Eosinophils (Bld) [#/Vol] 0.09 10*3/uL [place] Eosinophils/100 WBC (Bld) 2 % 1 - 4 % [place] Erythrocyte distribution width (RBC) [Ratio] 15.7 % High 11.8 - 14.4 % [place] Hematocrit (Bld) [Volume fraction] 36.5 % 36.3 - 47.1 % [place] Hemoglobin (Bld) [Mass/Vol] 11.2 g/dL Low 11.9 - 15.1 g/dL [place] Hepatitis B Surface Ag NONREACTIVE NONREACTIVE [place] Immature granulocytes (Bld) [#/Vol] 0 % 0 [place] Immature granulocytes (Bld) [#/Vol] 10*3/uL [place] Interpretation and review of laboratory results Abnormal [place] Lymphocytes (Bld) [#/Vol] 1.98 10*3/uL [place] Lymphocytes/100 WBC (Bld) 46 % High 24 - 43 % [place] MCH (RBC) [Entitic mass] 25.6 pg 25.2 - 33.5 pg [place] MCHC (RBC) [Mass/Vol] 30.7 g/dL 28.4 - 34.8 g/dL [place] MCV (RBC) [Entitic vol] 83.3 fL 82.6 - 102.9 fL [place] Monocytes (Bld) [#/Vol] 0.37 10*3/uL [place] Monocytes/100 WBC (Bld) 9 % 3 - 12 % [place] Platelet mean volume (Bld) [Entitic vol] 11.6 fL 8.1 - 13.5 fL [place] Platelets (Bld) [#/Vol] NOT REPORTED [place] Platelets (Bld) [#/Vol] 196 10*3/uL [place] RBC (Bld) [#/Vol] 4.38 10*6/uL 3.95 - 5.1 1 m/uL [place] RBC morphology finding Nom (Bld) NOT REPORTED [place] Rubella virus IgG Ql (S) 286.1 IU/mL [place] Comment on above: REFERENCE RANGE: <5.0 NON-REACTIVE (non-immune) 5.0 TO 9.9 EQUIVOCAL >=10.0 REACTIVE (immune) Segmented neutrophils/100 WBC (Bld) 42 % 36 - 65 % [place] Segs Absolute 1.75 [place] T. pallidum, IgG NONREACTIVE NONREACTIVE [place] Comment on above: T. pallidum antibodies are not detected. There is no serological evidence of infection with T. pallidum (early primary syphilis cannot be excluded). Retest in 2-4 weeks if syphilis is clinically suspect. WBC (Bld) [#/Vol] 4.2 10*3/uL [place] WBC (Bld) [#/Vol] 0.0 10*3/uL 0.0 per 100 WBC [place] WBC Morphology NOT REPORTED [place], [place] TYPE AND SCREENon 1 ABO/Rh Positive [place] Profileon 9 Abs. Basophil <0.03 Normal 0.00-0.20 [place] Comment on above: Performed By: #### P RENAT #### [address] [address] Pond Supervisor: Dom Fowler MD [facility] [address] [place] [address] [place] [phone] Pond Supervisor: Shakeel Graham MD Abs.Imm.Granulocyte <0.03 Normal 0.00-0.30 [facility] Comment on above: Performed By: #### P RENAT #### [address] [address] Pond Supervisor: Dom Fowler MD [address] [place] [phone] Pond Supervisor: Shakeel Graham MD Abs.Neutrophil (Seg) 1.75 k/uL Normal 1.50-8.10 [facility] Comment on above: Performed By: #### P RENAT #### [address] [address] Pond Supervisor: Dom Fowler MD [facility] [address] [place] [address] [place] [address] Pond Supervisor: Shakeel Graham MD Basophils/100 WBC (Bld) 1 % Normal 0-2 [facility] Comment on above: Performed By: #### P RENAT #### [address] [phone] Pond Supervisor: Dom Fowler MD [address] [place], [place] [phone] Pond Supervisor: Shakeel Graham MD Eosinophils (Bld) [#/Vol] 0.09 10*3/uL Normal 0.00-0.44 [facility] Comment on above: Performed By: #### P RENAT #### [address] [address] Pond Supervisor: Dom Fowler MD [address] [place] [phone] Pond Supervisor: Shakeel Graham MD Eosinophils/100 WBC (Bld) 2 % Normal 1-4 [facility] Comment on above: Performed By: #### P RENAT #### [address] [address] Pond Supervisor: Dom Fowler MD [address] [place] [phone] Pond Supervisor: Shakeel Graham MD Erythrocyte distribution width (RBC) [Ratio] 15.7 % High 11.8-14.4 [facility] Comment on above: Performed By: #### P RENAT #### [address] [address] Pond Supervisor: Dom Fowler MD [address] [place] [phone] Pond Supervisor: Shakeel Graham MD Hematocrit (Bld) [Volume fraction] 36.5 % Normal 36.3-47.1 [facility] Comment on above: Performed By: #### P RENAT #### [address] [address] Pond Supervisor: Dom Fowlre MD [address] [place] [phone] Pond Supervisor: Shakeel Graham MD Hemoglobin (Bld) [Mass/Vol] 11.2 g/dL Low 11.9-15.1 [facility] Comment on above: Performed By: #### P RENAT #### [address] [place] [address] Pond Supervisor: Dom Fowler MD [address] [place] [phone] Pond Supervisor: Shakeel Graham MD Immature granulocytes (Bld) [#/Vol] 0 % Normal 0 [facility] Comment on above: Performed By: #### P RENAT #### [address] [address] Pond Supervisor: Dom Fowler MD [address] [place] [phone] Pond Supervisor: Shakeel Graham MD Lymphocytes (Bld) [#/Vol] 1.98 10*3/uL Normal 1.10-3.70 [facility] Comment on above: Performed By: #### P RENAT #### [address] [address] Pond Supervisor: Dom Fowler MD [address] [place] [phone] Pond Supervisor: Shakeel Graham MD Lymphocytes/100 WBC (Bld) 46 % High 24-43 [facility] Comment on above: Performed By: #### P RENAT #### [address] [address] Pond Supervisor: Dom Fowler MD [address] [place] [phone] Pond Supervisor: Shakeel Graham MD MCH (RBC) [Entitic mass] 25.6 pg Normal 25.2-33.5 [facility] Comment on above: Performed By: #### P RENAT #### [address] [address] Pond Supervisor: Dom Fowler MD [address] [place], [place] [phone] Pond Supervisor: Shakeel Graham MD MCHC (RBC) [Mass/Vol] 30.7 g/dL Normal 28.4-34.8 [facility] Comment on above: Performed By: #### P RENAT #### [address] [address] Pond Supervisor: Dom Fowler MD [address] [place] [phone] Pond Supervisor: Shakeel Graham MD MCV (RBC) [Entitic vol] 83.3 fL Normal 82.6-102.9 [facility] Comment on above: Performed By: #### P RENAT #### [address] [address] Pond Supervisor: Dom Fowler MD [address] [place] [phone] Pond Supervisor: Shakeel Graham MD Monocytes (Bld) [#/Vol] 0.37 10*3/uL Normal 0.10-1.20 [facility] Comment on above: Performed By: #### P RENAT #### [address] [address] Pond Supervisor: Dom Fowler MD [address] [place] [address] Pond Supervisor: Shakeel Graham MD Monocytes/100 WBC (Bld) 9 % Normal 3-12 [facility] Comment on above: Performed By: #### P RENAT #### [address] [address] Pond Supervisor: Dom Fowler MD [address] [place] [phone] Pond Supervisor: Shakeel Graham MD Neutrophil (Seg) 42 % Normal 36-65 [facility] Comment on above: Performed By: #### P RENAT #### [address] [address] Pond Supervisor: Dom Fowler MD [address] [place] [address] Pond Supervisor: Shakeel Graham MD NRBC Automated 0.0 per 100 WBC Normal 0.0 [facility] Comment on above: Performed By: #### P RENAT #### [address] [address] Pond Supervisor: Dom Fowler MD [address] [place] [address] Pond Supervisor: Shakeel Graham MD Platelet mean volume (Bld) [Entitic vol] 11.6 fL Normal 8.1-13.5 [facility] Comment on above: Performed By: #### P RENAT #### [address] [address] Pond Supervisor: Dom Fowler MD [address] [place] [phone] Pond Supervisor: Shakeel Graham MD Platelets (Bld) [#/Vol] 196 10*3/uL Normal 138-453 [facility] Comment on above: Performed By: #### P RENAT #### [address] [address] Pond Supervisor: Dom Fowler MD [address] [place] [phone] Pond Supervisor: Shakeel Graham MD RBC (Bld) [#/Vol] 4.38 10*6/uL Normal 3.95-5.11 [facility] Comment on above: Performed By: #### P RENAT #### [address] [address] Pond Supervisor: Dom Fowler MD [address] [place] [phone] Pond Supervisor: Shakeel Graham MD WBC (Bld) [#/Vol] 4.2 10*3/uL Normal 3.5-11.3 [facility] Comment on above: Performed By: #### P RENAT #### [facility] [address] [place] [address] Pond Supervisor: Dom Fowler MD [address] [place] [phone] Pond Supervisor: Shakeel Graham MD Auto Diff Performed NOT REPORTED Normal [facility] Comment on above: Performed By: #### P RENAT #### [address] [address] Pond Supervisor: Dom Fowler MD [address] [place] [address] Pond Supervisor: Shakeel Graham MD Platelets (Bld) [#/Vol] NOT REPORTED Normal [facility] Comment on above: Performed By: #### P RENAT #### [address] [address] Pond Supervisor: Dom Fowler MD [address] [place] [address] Pond Supervisor: Shakeel Graham MD RBC morphology finding Nom (Bld) NOT REPORTED Normal [facility] Comment on above: Performed By: #### P RENAT #### [address] [address] Pond Supervisor: Dom Fowler MD [address] [place] [address] Pond Supervisor: Shakeel Graham MD WBC Morphology NOT REPORTED Normal [facility] Comment on above: Performed By: #### P RENAT #### [address] [address] Pond Supervisor: Dom Fowler MD [address] [place] [address] Pond Supervisor: Shakeel Graham MD Type + Scrnon 06-19 Type + Scrn Negative [facility] Comment on above: Performed By: #### P RTYS #### [facility] [address] [place], [place] [phone] Pond Supervisor: Shakeel Graham MD Toxicology Scree, Urineon Amphetamine(s),Ur Negative Normal NEG [facility] Comment on above: Performed By: #### C PDAU #### [facility] [address] [place], [place] [phone] Pond Supervisor: Shakeel Grahma MD Barbiturate(s),Ur Negative Normal NEG [facility] Comment on above: Performed By: #### C PDAU #### [facility] [address] [place], [facility]83 Pond Supervisor: Shakeel Graham MD Benzodiazepine(s) Negative Normal [facility] Comment on above: Performed By: #### C PDAU #### [facility] [address] [place], [facility]83 Pond Supervisor: Shakeel Graham MD Buprenorphrine, Ur Negative Normal [facility] Comment on above: Performed By: #### C PDAU #### [facility] [address] [place], [place] [address] Pond Supervisor: Shakeel Graham MD Cannabinoid(s),Ur Negative Normal [facility] Comment on above: Performed By: #### C PDAU #### [facility] [address] [place], [place] [phone] Pond Supervisor: Shakeel Graham MD Cocaine Metabolite Negative Normal [facility] Comment on above: Performed By: #### C PDAU #### [facility] [address] [place], [place] [phone] Pond Supervisor: Shakeel Graham MD Methadone Ql (U) Negative Normal NEG [facility] Comment on above: Performed By: #### C PDAU #### [facility] [address] [place], [place] [id number] Pond Supervisor: Shakeel Graham MD Methamphetamine, Ur Negative Normal NEG [facility] Comment on above: Performed By: #### C PDAU #### [facility] [address] [place], [place] [id number] Pond Supervisor: Shakeel Graham MD Opiate(s), Ur Negative Normal NEG [place] Comment on above: Performed By: #### C PDAU #### [facility] [address] [place] [address] Pond Supervisor: Shakeel Graham MD Oxycodone, Urine Negative Normal NEG [facility] Comment on above: Performed By: #### C PDAU #### [facility] [address] [place], [facility]83 Pond Supervisor: Shakeel Graham MD Phencyclidine, Ur Negative Normal NEG [facility] Comment on above: Performed By: #### C PDAU #### [facility] [address] [place] [address] Dr. [place], [facility]83 Pond Supervisor: Shakeel Graham MD Propoxyphene,Urine Negative Normal NEG [facility] Comment on above: Performed By: #### C PDAU #### [facility] [address] [place], [facility]83 Pond Supervisor: Shakeel Graham MD Tricyclic antidepressants Screen Ql (U) Positive Abnormal NEG [facility] Comment on above: Result Comment: Drug screen results are to be used for medical purposes only. All positive results are unconfirmed. Testing for employment or legal uses should be sent to a reference laboratory for confirmation. Performed By: #### C PDAU #### [facility] [address] [place] [address] Pond Supervisor: Shakeel Graham MD Interpretive Info NOT REPORTED Normal [facility] Comment on above: Performed By: #### C PDAU #### [facility] [address] [place] [address] Pond Supervisor: Shakeel Graham MD MDMA, Urine NOT REPORTED Normal NEG [place] Comment on above: Performed By: #### C PDAU #### [facility] [address] [place] [address] Pond Supervisor: Shakeel Graham MD Urine Drug Screen, Magda [...] [place] Tricyclic Antidepressants, Urine Positive Abnormal NEGATIVE [facility] [place], [place] Comment on above: Drug screen results are to be used for medical purposes only. All positive results are unconfirmed. Testing for employment or legal uses should be sent to a reference laboratory for confirmation. HIV Ag/Abon 05-10-2019 HIV Ag/Ab NONREACTIVE Normal NR [facility] Comment on above: Result Comment: No l aboratory evidence of HIV infection. If acute HIV infection is suspected, consider testing for HIV-1 RNA. Performed By: #### H IVCMB, PHEP #### [facility] [place] [address] Pond Supervisor: Dom Fowler MD #### CP #### [facility] [address] [place] [address] Dr[address] [place], [place] [id number] Pond Supervisor: Shakeel Graham MD Hepatitis Acute [facility] 05-10 Hep A Ab,IgM NONREACTIVE Normal [facility] Comment on above: Performed By: #### H IVCMB, PHEP #### [address] [address] Pond Supervisor: Dom Fowler MD #### CP #### [facility] [address] [place] [address] Dr. [place], [place] [id number] Pond Supervisor: Shakeel Graham MD Hep B Core Ab,IgM NONREACTIVE Normal [facility] Comment on above: Performed By: #### H IVCMB, PHEP #### [address] [address] Pond Supervisor: Dom Fowler MD #### CP #### [address] [place], [place] [id number] Pond Supervisor: Shakeel Graham MD Hep B Surf Ag NONREACTIVE Normal [facility] Comment on above: Performed By: #### H IVCMB, PHEP #### [address] [address] Pond Supervisor: Dom Fowler MD #### CP #### [address] [place] [address] Pond Supervisor: Shakeel Graham MD Hep C Ab REACTIVE Abnormal [facility] Comment on above: Result Comment: The hepatitis [...] Performed By: #### H IVCMB, PHEP #### [place] [place] [address] Pond Supervisor: Dom Fowler MD #### CP #### [address] [place], [place] [id number] Pond Supervisor: Shakeel Graham MD Comp Metabolic Profon 2018 (cont.) [facility] Comment on above: Result Comment: Aver age GFR for 20-29 years old: 116 mL/min/1.73sq m Chronic Kidney Disease: <60 mL/min/1.73sq m Kidney failure: <15 mL/min/1.73sq m eGFR calculated using average adult body mass. Additional eGFR calculator available at: http://www.ethority/multiple_crcl_2011.htm Performed By: #### H IVCMB, PHEP #### [address] [address] Pond Supervisor: Dom Fowler MD #### CP #### [address] [place], [place] [address]83 Pond Supervisor: Shakeel Graham MD Albumin [Mass/Vol] 4.3 g/dL Normal 3.5-5.2 [facility] Comment on above: Performed By: #### H IVCMB, PHEP #### [address] [address] Pond Supervisor: Dom Fowler MD #### CP #### [address] [place], [place] [address]83 Pond Supervisor: Shakeel Graham MD Albumin/Globulin [Mass ratio] 1.4 {ratio} Normal 1.0-2.5 [facility] Comment on above: Performed By: #### H IVCMB, PHEP #### [address] [address] Pond Supervisor: Dom Fowler MD #### CP #### [address] [place], [place] [id number] Pond Supervisor: Shakeel Graham MD Alkaline Phos 50 U/L Normal 35-104 [place] Comment on above: Performed By: #### H IVCMB, PHEP #### [address] [address] Pond Supervisor: Dom Fowler MD #### CP #### [facility] [address] [place] [address] Dr. [place], [place] [id number] Pond Supervisor: Shakeel Graham MD ALT [Catalytic activity/Vol] 9 U/L Normal 5-33 [facility] Comment on above: Performed By: #### H IVCMB, PHEP #### [address] [address] Pond Supervisor: Dom Fowler MD #### CP #### [address] [place] [id number] Pond Supervisor: Shakeel Graham MD Anion gap [Moles/Vol] 8 mmol/L Low 9-17 [facility] Comment on above: Performed By: #### H IVCMB, PHEP #### [address] [address] Pond Supervisor: Dom Fowler MD #### CP #### [address] [place] [id number] Pond Supervisor: Shakeel Graham MD AST [Catalytic activity/Vol] 15 U/L Normal <32 [facility] Comment on above: Performed By: #### H IVCMB, PHEP #### [address] [address] Pond Supervisor: Dom Fowler MD #### CP #### [address] [place], [place] 5115383 Pond Supervisor: Shakeel Graham MD Bilirubin Ql (U) 0.31 mg/dL Normal 0.3-1.2 [facility] Comment on above: Performed By: #### H IVCMB, PHEP #### [address] [address] Pond Supervisor: Dom Fowler MD #### CP #### [facility] [address] [place], [place] [id number] Pond Supervisor: Shakeel Graham MD BUN/CRE Ratio 20 Normal 9-20 [place] Comment on above: Performed By: #### H IVCMB, PHEP #### [address] [address] Pond Supervisor: Dom Fowler MD #### CP #### [facility] [address] [place], [place] 7662083 Pond Supervisor: Shakeel Graham MD Calcium [Mass/Vol] 9.4 mg/dL Normal 8.6-10.4 [facility] Comment on above: Performed By: #### H IVCMB, PHEP #### [address] [address] Pond Supervisor: Dom Fowler MD #### CP #### [address] [place], [place] 7696383 Pond Supervisor: Shakeel Graham MD Chloride [Moles/Vol] 102 mmol/L Normal 98-107 [facility] Comment on above: Performed By: #### H IVCMB, PHEP #### [address] [address] Pond Supervisor: Dom Fowler MD #### CP #### [facility] [address] [place], [place] 469[address]83 Pond Supervisor: Shakeel Garham MD CO2 [Moles/Vol] 28 mmol/L Normal 20-31 [facility] Comment on above: Performed By: #### H IVCMB, PHEP #### [address] [address] Pond Supervisor: Dom Fowler MD #### CP #### [facility] [address] [place], [place] [id number] Pond Supervisor: Shakeel Graham MD Creatinine [Mass/Vol] 0.92 mg/dL High 0.50-0.90 [facility] Comment on above: Performed By: #### H IVCMB, PHEP #### [address] [address] Pond Supervisor: Dom Fowler MD #### CP #### [facility] [address] [place] [address] Pond Supervisor: Shakeel Graham MD GFR, Amer >60 Normal >60 [facility] Comment on above: Performed By: #### H IVCMB, PHEP #### [address] [address] Pond Supervisor: Dom Fowler MD #### CP #### [facility] [address] [place] [address] [place] [address] Pond Supervisor: Shakeel Graham MD GFR,non Amer >60 Normal >60 [facility] Comment on above: Performed By: #### H IVCMB, PHEP #### [address] [address] Pond Supervisor: Dom Fowler MD #### CP #### [facility] [address] [place], [place] [phone] Pond Supervisor: Shakeel Graham MD Glucose [Mass/Vol] 91 mg/dL Normal 70-99 [facility] Comment on above: Performed By: #### H IVCMB, PHEP #### [address] [address] Pond Supervisor: Dom Fowler MD #### CP #### [address] [place], [place] [phone] Pond Supervisor: Shakeel Graham MD Potassium [Moles/Vol] 4.3 mmol/L Normal 3.7-5.3 [facility] Comment on above: Performed By: #### H IVCMB, PHEP #### [address] [address] Pond Supervisor: Dom Fowler MD #### CP #### [address] [place], [place] 586[address]83 Pond Supervisor: Shakeel Graham MD Protein [Mass/Vol] 7.4 g/dL Normal 6.4-8.3 [facility] Comment on above: Performed By: #### H IVCMB, PHEP #### [address] [address] Pond Supervisor: Dom Fowler MD #### CP #### [address] [place], [place] 8490783 Pond Supervisor: Shakeel Graham MD Sodium [Moles/Vol] 138 mmol/L Normal 135-144 [facility] Comment on above: Performed By: #### H IVCMB, PHEP #### [address] [address] Pond Supervisor: Dom Fowler MD #### CP #### [address] [place], [place] 1347383 Pond Supervisor: Shakeel Graham MD Staging: Normal [facility] Comment on above: Result Comment: Stag e 1: Some kidney damage normal GFR Stage 2: Mild kidney damage GFR 60-89 Stage 3: Moderate kidney damage GFR 30-59 Stage 4: Severe kidney damage GFR 15-29 Stage 5: Severe kidney damage GFR <15 ESRD - chronic treatment by dialysis or transplant Performed By: #### H IVCMB, PHEP #### [address] [address] Pond Supervisor: Dom oFwler MD #### CP #### [facility] [address] [place] [address] Pond Supervisor: Shakeel Graham MD Urea nitrogen [Mass/Vol] 18 mg/dL Normal 6-20 [facility] Comment on above: Performed By: #### H IVCMB, PHEP #### [facility] [address] [place], [place] [id number] Pond Supervisor: Dom Fowler MD #### CP #### [facility] [address] [place] [address] Pond Supervisor: Shakeel Graham MD [facility] Metabolic Pane [facility] 05-09-2019 Albumin [Mass/Vol] 4.3 g/dL 3.5 - 5.2 g/dL [place], [place] Albumin/Globulin [Mass ratio] 1.4 {ratio} [place], [place] ALP [Catalytic activity/Vol] 50 U/L 35 - 104 U/L [place] ALT [Catalytic activity/Vol] 9 U/L 5 - 33 U/L [place] Anion gap [Moles/Vol] 8 mmol/L Low 9 - 17 mmol/L [place] AST [Catalytic activity/Vol] 15 U/L <32 [place] Bilirubin Ql (U) 0.31 mg/dL 0.3 - 1.2 mg/dL [place], [place] Bun/Cre Ratio 20 [place], [place] Calcium [Mass/Vol] 9.4 mg/dL 8.6 - 10. 4 mg/dL [place] Chloride [Moles/Vol] 102 mmol/L 98 - 107 mmol/L [place] CO2 [Moles/Vol] 28 mmol/L 20 - 31 mmol/L [place] Creatinine [Mass/Vol] 0.92 mg/dL High 0.5 - 0.9 mg/dL [place] GFR >60 >60 mL/min [place], [place] GFR Non- >60 >60 mL/min [place] Glucose [Mass/Vol] 91 mg/dL 70 - 99 mg/dL [place] Interpretation and review of laboratory results Abnormal [place] Potassium [Moles/Vol] 4.3 mmol/L 3.7 - 5.3 mmol/L [place] Protein [Mass/Vol] 7.4 g/dL 6.4 - 8.3 g/dL [place], [place] Sodium [Moles/Vol] 138 mmol/L 135 - 144 mmol/L [place] Urea nitrogen [Mass/Vol] 18 mg/dL 6 - 20 mg/dL [place] Hepatitis Panel, Acuteon HAV IgM IA Qn (S) NONREACTIVE NONREACTIVE [place] Hep B Core Ab, IgM NONREACTIVE NONREACTIVE [place] Hepatitis B Surface Ag NONREACTIVE NONREACTIVE [place] Hepatitis C Ab REACTIVE Abnormal NONREACTIVE [place], [place] Comment on above: The hepatitis C [...] Interpretation and review of laboratory results Abnormal [place] Metabolic Panelon 05-09-2019 GFR/1.73 sq M predicted among non-blacks MDRD (S/P/Bld) [Vol rate/Area] [place] Comment on above: Average GFR for 20-2 9 years old: 116 mL/min/1.73sq m Chronic Kidney Disease: <60 mL/min/1.73sq m Kidney failure: <15 mL/min/1.73sq m eGFR calculated using average adult body mass. Additional eGFR calculator available at: http://www.[facility].mnlakeplace.com/multiple_crcl_2012.htm Stage 1: Some kidney damage normal GFR Stage 2: Mild kidney damage GFR 60-89 Stage 3: Moderate kidney damage GFR 30-59 Stage 4: Severe kidney damage GFR 15-29 Stage 5: Severe kidney damage GFR <15 ESRD - chronic treatment by dialysis or transplant Drug Scr, Abuse, Uron 2017 Amphetamine(s),Ur Positive Abnormal NEG [facility] Comment on above: Result Comment: (Pos itive cutoff 1000 ng/mL) Performed By: #### D AU ####[address] [address] Barbiturate(s),Ur Negative Normal NEG [facility] Comment on above: Result Comment: (Pos itive cutoff 200 ng/mL) Performed By: #### D AU ####[address] [address] Base excess Negative Normal NEG [facility] Comment on above: Result Comment: (Pos itive cutoff 300 ng/mL) Performed By: #### D AU ####[address] [address] Benzodiazepine(s) Negative Normal NEG [facility] Comment on above: Result Comment: (Pos itive cutoff 200 ng/mL) Performed By: #### D AU ####[address] [address] Cannabinoid(s),Ur Negative Normal NEG [facility] Comment on above: Result Comment: (Pos itive cutoff 50 ng/mL) Performed By: #### D AU ####[address] [address] Interpretive Info Assay provides medical screening only. The absence of expected drug(s) and/or Normal [facility] Comment on above: Result Comment: meta bolite(s) may indicate diluted or adulterated urine, limitations of testing or timing of collection.Testing for legal purposes should be confirmed by another method. To request confirmation of test result, please call the lab within 7 days of sample submission.Performed at [address] [address] Performed By: #### D AU ####[address] [address] Opiate(s), Ur Negative Normal NEG [facility] Comment on above: Result Comment: (Pos itive cutoff 300 ng/mL) Performed By: #### D AU ####[address] [address] Oxycodone, Urine Negative Normal NEG [facility] Comment on above: Result Comment: (Pos itive cutoff 100 ng/mL) Performed By: #### D AU ####[address] [address] Phencyclidine, Ur Negative Normal NEG [facility] Comment on above: Result Comment: (Pos itive cutoff 25 ng/mL) Performed By: #### D AU ####[address] [address] Urine, methadone presence Negative Normal NEG [facility] Comment on above: Result Comment: (Pos itive cutoff 300 ng/mL) Performed By: #### D AU ####[address] [address] Buprenorphrine, Ur NOT REPORTED Normal NEG [facility] Comment on above: Performed By: #### D AU ####[address] [address] MDMA, Urine NOT REPORTED Normal NEG [facility] Comment on above: Performed By: #### D AU ####[address] [address] Methamphetamine, Ur NOT REPORTED Normal NEG [facility] Comment on above: Performed By: #### D AU ####[address] [address] Propoxyphene,Urine NOT REPORTED Normal NEG [facility] Comment on above: Performed By: #### D AU ####[address] [address] Urine, tricyclic antidepressants NOT REPORTED Normal NEG [facility] Comment on above: Performed By: #### D AU ####[address] [address] Lipid Profileon 11-05-2017 Cholesterol 137 mg/dL Normal <200 [facility] Comment on above: Result Comment: Chol esterol Guidelines: <200 Desirable 200-240 Borderline >240 Undesirable Performed By: #### L IPR ####[address] [address] Cholesterol to HDL Ratio 4.3 {ratio} Normal <5 [facility] Comment on above: Performed By: #### L IPR ####[address] [address] HDL Cholesterol 32 mg/dL Low >40 [facility] Comment on above: Result Comment: HDL Guidelines: <40 Undesirable 40-59 Borderline >59 Desirable Performed By: #### L IPR ####[address] [address] LDL Cholesterol 82 mg/dL Normal 0-130 [facility] Comment on above: Result Comment: LDL Guidelines: <100 Desirable 100-129 Near to/above Desirable 130-159 Borderline >159 UndesirableDirect (measured) LDL and calculated LDL are not interchangeable tests. Performed By: #### L IPR ####[address] [address] Triglyceride 113 mg/dL Normal <150 [facility] Comment on above: Result Comment: Trig lyceride Guidelines: <150 Desirable 150- 199 Borderline 200-499 High >499 Very high Based on AHA Guidelines for fasting triglyceride, June 2012.Performed at [facility] [address] [place] [address] Performed By: #### L IPR ####[facility] [facility] [place] [address] Cholesterol in VLDL mass conc NOT REPORTED Normal 10-16 [facility] Comment on above: Performed By: #### L IPR ####[facility] [facility] [place] [address] Encounters Encounter Date Encounter Type Care Provider Facility Start: 08-21-2023 End: 08-21-2023 ambulatory YOUSIF APARICIO Not Available Start: 08-01-2023 End: 08-01-2023 ambulatory LUIS FELIPE HALL Not Available Start: 12-21-2022 End: 12-21-2022 ambulatory IVAN CAMEJO . Facility:[facility] Start: 11-29-2022 End: 11-29-[address] RODO MENCHACA Facility:[facility] Start: 10-25-2022 [facility] Facility:[facility] Start: 10-11-2022 End: 10-11-[address] CHRISTINE SÁNCHEZ Facility:[facility] Start: 09-12-2022 End: 09-13-[address] YOUSIF APARICIO . Facility:[facility] Start: 08-19-2022 Encounter for preprocedural laboratory examination DR YOUSIF APARICIO . [facility] Start: 08-18-2022 End: 08-18-[address] YOUSIF APARICIO . Facility:[facility] Start: 08-16-2022 End: 08-17-[address] YOUSIF APARICIO . Facility:[facility] Start: 08-16-2022 End: 08-17-2022 Encounter for preprocedural laboratory examination DR YOUSIF APARICIO . Facility:[facility] Start: 08-14-2022 End: 08-15-2022 [facility] Facility:[facility] Start: 07-27-2022 End: 07-28-[address] YOUSIF APARICIO . Facility:[facility] Start: 07-09-2022 End: 07-09-[address] ELISEO HARDING Facility:[facility] Start: 12-12-2021 Telephone encounter King zee MD Work Phone: Hematology/Oncology Comment on above: Lab Orders Start: 10-28-2021 Chart abstracting King fleming MD Work Phone: Hematology/Oncology Start: 04-26-2020 End: 04-27-2020 Patient encounter procedure ANTHONY FARIDA [facility] Start: 04-26-2020 End: 04-26-2020 Subsequent hospital visit by physician Rochelle ALFRED Laboratory Start: 03-16-2020 End: 03-17-2020 Emergency department [facility] Start: 11-20-2019 End: 11-21-2019 Patient encounter procedure [facility] Start: 11-20-2019 End: 11-20-2019 Subsequent hospital visit by physician Rochelle ALFRED Laboratory Comment on above: History of miscarria ge, currently ; Amenorrhea; Positive urine test; Encounter for supervision of normal in first trimester, unspecified ; Spotting in early Start: 06-19-2019 End: 06-20-2019 Patient encounter procedure [facility] Start: 06-19-2019 End: 06-19-2019 Subsequent hospital visit by physician Rochelle ALFRED Laboratory Comment on above: Amenorrhea; Positive urine test; Encounter for supervision of normal in first trimester, unspecified ; Spotting in early Start: 05-09-2019 End: 05-10-2019 Patient encounter procedure KADI ANA [facility] Start: 05-09-2019 End: 05-09-2019 Subsequent hospital visit by physician Rochelle ALFRED Laboratory Start: 11-05-2017 End: 11-07-2017 Evaluation and management of inpatient [facility] Procedures Date Procedure Procedure Detail Performing Clinician Start: 04-26-2020 Acute hepatitis panel D AWN DESTINY Start: 04-26-2020 Antibody hiv-1&hiv-2 single result KADI DESTINY Start: 04-26-2020 Blood count complete automated KADI DESTINY Start: 04-26-2020 Comprehensive metabo lic panel KADI DESTINY Start: 04-26-2020 Gonadotropin chorion ic qualitative KADI DESTINY Start: 04-26-2020 Iadna hepatitis c qu ant & reverse bisque placer KADI DESTINY Start: 04-26-2020 Acute hepatitis panel [...] SPICER Start: 11-05-2017 Lipid panel ANGELO BARRIOS REHABILITATION MANAGER Start: 11-05-2017 DIET GENERAL ANGELO BARRIOS REHABILITATION MANAGER Start: 11-05-2017 FULL CODE ANGELO BARRIOS REHABILITATION MANAGER Start: 11-05-2017 IP CONSULT TO HISTOR Y [...] deficiency anemia type Expected: 12/12/2021, Expires: 02/11/2022 [facility] Work Phone: Comment on above: Expected: 12/12/2021 , Expires: 02/11/2022 Start: 05-18-2021 Influenza vaccination INFLUENZA (#1) [facility] Start: 06-26-2020 Cervical cancer screen Cervical canc er screen [place] Comment on above: Postponed from 01/11 (Not Indicated) Start: 06-26-2020 Screening for malign ant neoplasm of cervix Cervical cancer screen [place] Comment on above: Postponed from 01/11 (Not Indicated) Start: 05-18-2020 Influenza vaccination Flu vaccine (# 1) [facility] [place] Start: 11-21-2019 End: 11-21-2019 Ancillary Procedure 11/21/2019 Ancillary Procedure Obstetrics and Gynecology [facility] OBST[facility]RICS & GYNECOLOGY Start: 06-26-2019 End: 06-26-2019 Routine 06/26/2019 Routine Obstetrics and Gynecology Georgette Leung APRN - [facility]RI[facility] [address] [place] [address] [phone] [facility] 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 Start: 05-18-2019 Influenza vaccination Flu vaccine (# 1) [facility] [place] Start: 2015 Cervical cancer screen Cervical canc er screen [place] Start: 2015 PAP TESTING PAP TESTING [facility] Start: 2013 DTaP/Tdap/Td vaccine (1 - Tdap) DTaP/Tdap/Td vaccine (1 - Tdap) [place] Start: 2013 Urine microalbumin profile DTAP,TDAP,TD (1 - Tdap) [facility] Start: 01-12-2012 HEPATITIS C SCREENING HEPATITIS C SC REENING [facility] Start: 01-12-2012 HIV SCREENING HIV SCREENING [facility] Start: 2009 HPV vaccine (1 - Fem larissa 3-dose series) HPV vaccine (1 - Female 3-dose series) [place] Start: 2007 Varicella Vaccine (1 of 2 - 13+ 2-dose series) Varicella Vaccine (1 of 2 - 13+ 2-dose series) [place] Start: 2006 Adult depression screening assessment DEPRESSION SCREENING [facility] Start: 2005 DTaP/Tdap/Td vaccine (1 - Tdap) DTaP/Tdap/Td vaccine (1 - Tdap) [place] Start: 2005 HPV vaccine (1 - 2-d ose series) HPV vaccine (1 - 2-dose series) [place] Start: 2005 HPV vaccine (1 - Fem larissa 2-dose series) HPV vaccine (1 - Female 2-dose series) [place] Start: 01-12-2000 Pneumococcal 0-64 ye ars Vaccine (1 of 1 - PPSV23) Pneumococcal 0-64 years Vaccine (1 of 1 - PPSV23) [place] Start: 1999 COVID-19 VACCINE (1) COVID-19 VACCIN E (1) [facility] Start: 1995 Varicella vaccine (1 of 2 - 2-dose childhood series) Varicella vaccine (1 of 2 - 2-dose childhood series) [place] End: 11-20-2019 Bacteria identified Cx Nom (U) Urine Culture Microbiology Routine Amenorrhea Positive urine test Encounter for supervision of normal in first trimester, unspecified 1 Occurrences starting 11/20/2019 until 11/20/2019 [place] Comment on above: 1 Occurrences starti ng 11/20/2019 until 11/20/2019 Bacteria identified Cx Nom (U) [place], [place] End: 06-19-2019 Bacteria identified Cx Nom (U) Urine Culture Microbiology Routine Amenorrhea Positive urine test Encounter for supervision of normal in first trimester, unspecified 1 Occurrences starting 06/19/2019 until 06/19/2019 [place] Comment on above: 1 Occurrences starti ng 06/19/2019 until 06/19/2019 End: 11-20-2019 C.trachomatis N.gonorrhoeae DNA, Urine C.trachomatis N.gonorrhoeae DNA, Urine Microbiology Routine Amenorrhea Positive urine test Encounter for supervision of normal in first trimester, unspecified 1 Occurrences starting 11/20/2019 until 11/20/2019 [place] Comment on above: 1 Occurrences starti ng 11/20/2019 until 11/20/2019 C.trachomatis N.gonorrhoeae DNA, Urine [place] End: 06-19-2019 C.trachomatis N.gonorrhoeae DNA, Urine C.trachomatis N.gonorrhoeae DNA, Urine Microbiology Routine Amenorrhea Positive urine test Encounter for supervision of normal in first trimester, unspecified 1 Occurrences starting 06/19/2019 until 06/19/2019 [place] Comment on above: 1 Occurrences starti ng 06/19/2019 until 06/19/2019 End: 04-26-2020 Hepatitis C RNA, quantitative, PCR Hepatitis C RNA, quantitative, PCR Lab Routine Once for 1 Occurrences starting 04/26/2020 until 04/26/2020 [place] Comment on above: Once for 1 Occurrenc es starting 04/26/2020 until 04/26/2020 Hepatitis C RNA, quantitative, PCR Hepatitis C RNA, quantitative, PCR Lab Routine 04/26/2020 7:30 AM EDT [place] End: 05-09-2019 HIV Screen HIV Screen Lab Routine Once for 1 Occurrences starting 05/09/2019 until 05/09/2019 [place] Comment on above: Once for 1 Occurrenc es starting 05/09/2019 until 05/09/2019 HIV Screen HIV Screen Lab R outine 05/09/2019 2[facility]53 [facility] Routine Amenorrhea Positive urine test Encounter for supervision of normal in first trimester, unspecified 11/20/2019 12:26 PM EST [facility] Payers Date Payer Category Payer Medicaid [employer] [employer] [place] [employer] [id number] 2020-Present [phone] [address] [place] [address] Medicaid [id number] 2020 Unknown 2016 Unknown [facility] xxxxxxxxxxxx 2016-Present [phone] [address] [facility] [place] [address] xxxxxxxxxxxx [id number] 1994 Unknown [id number] 2.16.840.1.180688.3.579.2.196 1994 Unknown [id number] 2.16.840.1.287889.3.579.2.173 1994 Unknown [id number] 2.16.840.1.284889.3.579.2.173 1994 Unknown [id number] 2.16.840.1.979332.3.579.2.173 1994 Unknown [id number] 2.16.840.1.767750.3.579.2.173 1994 Unknown [id number] 2.16.840.1.855335.3.579.2.593 1994 Unknown [id number] 2.16.840.1.575354.3.579.2.593 1994 Unknown [id number] 2.16.840.1.767913.3.579.2.593 1994 Unknown [id number] 2.16.840.1.106276.3.579.2.593 1994 Unknown [id number] 2.16.840.1.193515.3.579.2.593 1994 Unknown [id number] 2.16.840.1.754451.3.579.2.593 1994 Unknown [id number] 2.16.840.1.009023.3.579.2.593 1994 Unknown [id number] 2.16.840.1.827129.3.579.2.593 1994 Unknown [id number] 2.16.840.1.802677.3.579.2.593 1994 Unknown [id number] 2.16.840.1.300081.3.579.2.593 1994 Unknown [id number] 2.16.840.1.050847.3.579.2.125 9 1994 Unknown [id number] 2.16.840.1.198468.3.579.2.125 9 1959 Unknown [id number] Social History Date Type Detail Facility Start: 11-05-2017 End: 10-28-2021 Tobacco smoking status PAIS Never smoker [facility] Start: 11-05-2017 End: 06-19-2019 Alcohol intake No [place], [place] Start: 1995 Sex Assigned At Not on file M [place] Start: 06-19-2019 End: 11-20-2019 Tobacco smoking status NHIS Current every day smoker [place] Start: 06-19-2019 End: 11-20-2019 Cigarettes smoked current (pack per day) - Reported [place] Start: 11-20-2019 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 PREOPERATIVE DIAGNOSIS: Missed . POSTOPERATIVE DIAGNOSIS: Missed . ANESTHESIA: General. SURGEON: Yousif Aparicio D.O. SENIOR BI ARCHITECT: None. BLOOD LOSS: 75 mL. URINE OUTPUT: [...] products of conception were removed using a 10-Luxembourgish suction curette. Excellent hemostasis was noted. The patient tolerated the procedure well. Sponge, lap, and needle counts were correct x 2. All instruments were then removed from the patient's vagina. The patient was taken to the Recovery Room in stable condition. ?? [facility] Note 12-12-2021 Telephone Encounter - Angelia Almazan - 12/12/2021 11:16 AM EDT Note Date & Type Note Facility 12-12-2021 Miscellaneous Notes Pleases sign pending new cbc order. Thanks, Angelia Almazan MA documented in this encounter [facility] Progress note 11-08-2021 Note Date & Type Note Facility 11-08-2021 Note HNO ID: [id number] Author: King Suazo MD Service: ? Author [...] shortness of breath, and is seen at [place] emergency room. Labs revealed a hemoglobin of [...] biceps/brachioradial/patella/achilles. MUSCULOSKELETAL: Neg (more content not included)... [facility] Evaluation note Note Date & Type Note Facility Evaluation note Diagnosis Iron deficiency anemia, unspecified iron deficiency anemia type- Primary documented in this encounter [facility] Summary Purpose Family History No Family History Records FoundNo Family History Records FoundNo Family History Records FoundNo Family History Records FoundNo Family History Records FoundNo Family History Records Found Advance Directives No Advanced Directives Records FoundDocuments on File Type Date Recorded Patient Jewel Diameter Gauger Expl anation Advance Directives and Living Will Power of Traveling Sales Executive Latest Code Status on File Code Status [...] section and content) DATE CREATED AUTHOR 03/08/2018 [facility] DATE CREATED AUTHOR AUTHOR'S ORGANIZ ATION 04/08/2020 [facility] DATE CREATED AUTHOR AUTHOR'S ORGANIZ ATION 04/28/2020 [facility] DATE CREATED AUTHOR AUTHOR'S ORGANIZ ATION 12/13/2021 [facility] DATE CREATED AUTHOR AUTHOR'S ORGANIZ ATION 12/25/2022 [facility] DATE CREATED AUTHOR AUTHOR'S ORGANIZ ATION 08/23/[address] [facility] dicfl Specialists EPIC Source Comments (unrecognize d section and content) In the event this informatio n is protected by the Federal Confidentiality of Alcohol and Drug Abuse Patient Records regulations: The Federal rules restrict any use of the information to criminally investigate or prosecute any alcohol or drug abuse patient.[facility] the event this information is protected by the Federal Confidentiality of Alcohol and Drug Abuse Patient Records regulations: The Federal rules restrict any use of the information to criminally investigate or prosecute any alcohol or drug abuse patient.[facility] Reason for Visit (unrecogniz ed section and content) Reason Comments Lab Orders Care Teams (unrecognized sec tion and content) Obstetrical Nurse Relationship Specialty Start Date End Date Rodo Menchaca [address] [facility] [place] [address] PCP - General Family Practice 11/08/21 FOR [...] BE BASED ON THE PRIMARY CLINICAL RECORDS. [employer] [facility]. provides no warranty or guarantee of the accuracy or completeness of information in this document.
--- NOTE | 2023-09-06 18:48 | XR_ITS ---
The [address] [address] Patient Name: NOE ERVIN MRN: [id number] date: 1995 Sex: F Assigned Patient Location: ER Current Patient Location: ED.MAIN Accession/Order Number: [id number] Exam Date: 09/06/2023 18:22 Report Date: 09/06/2023 20:03 At the request of: NOE JENKINS Procedure: XR forearm LT 2V EXAM: XR forearm LT 2V HISTORY: dog bite; shield abdomen COMPARISON: None. TECHNIQUE: 2 views of the left forearm are performed. FINDINGS: There is soft tissue swelling and soft tissue gas along the lateral and volar aspect of the left elbow proximally. No fracture. No radiopaque foreign body. No elbow effusion. XR/XR forearm LT 2V IMPRESSION: Soft tissue injury along the lateral and volar proximal forearm without fracture or radiopaque foreign body. Electronically authenticated by: KAMILLA MILLS Date: 09/06/2023 20:03
--- NOTE | 2023-09-06 18:57 | ED.ANIMALBI1 ---
HPI - Animal Bite General Chief Complaint: Animal Bite Stated Complaint: bite by dog left arm Time Seen by Provider: 09/06/23 18:46 Source: patient Mode of arrival: Wheelchair Limitations: no limitations History of Present Illness HPI narrative: 28 year old female presents to the ED for a dog bite to her left forearm. It occurred this evening. States it was her father's dog. Her tetanus status is not up to date. She is 31 weeks . Denies fever, chills, weakness. Denies N/T to her LUE. Rates her pain 7/10 at this time. Related Data Home Medications Medication Instructions Recorded Confirmed gabapentin 600 mg tablet 600 mg PO Q8H 08/26/23 08/26/23 ondansetron HCl 4 mg tablet 8 mg PO Q6H PRN nausea and vomiting 08/26/23 08/26/23 vitamin with calcium 1 tab PO Q24H 08/26/23 08/26/23 no.72-iron 27 mg-folic acid 1 mg tablet ( Vitamins Plus Low Iron) Previous Rx's Medication Instructions Recorded amoxicillin 875 mg-potassium 1 tab PO Q12H 5 days #10 tabs 09/06/23 clavulanate 125 mg tablet Allergies Allergy/AdvReac Type Severity Reaction Status Date / Time No Known Drug Allergies Allergy Verified 08/26/23 11:51 Review of Systems ROS Constitutional Denies: fever or chills Cardiovascular Denies: chest pain Respiratory Denies: shortness of breath Musculoskeletal Reports: extremity pain Integumentary/Breast Reports: skin tenderness, sores and other (Lacerations, puncture wounds to left forearm); Denies: rash Neurological Denies: numbness in extremities or weakness in extremities Exam Constitutional Vital Signs, click to edit/add: Last Vital Signs Temp 98.1 F 09/06/23 18:36 Pulse 72 09/06/23 18:36 Resp 20 09/06/23 18:36 BP 100/63 09/06/23 18:36 Pulse Ox 97 09/06/23 18:36 O2 Del Method Room Air 09/06/23 18:36 Common normals: oriented x3 General appearance: cooperative Eye Common normals: no scleral icterus Neck & C-Spine Common normals: supple Chest Chest: symmetrical chest wall rise Respiratory Common normals: normal respiratory effort Effort & inspection: able to speak in complete sentences and symmetric chest movement Cardio Common normals: regular rate Peripheral pulses: radial pulses present Extremity Other: Multiple puncture wounds to left forearm. 1.5 cm laceration to left anterior forearm and 1 cm laceration to left posterior forearm; sutures indicated. There is mild surrounding swelling, tenderness. No active bleeding. Distal sensation intact. Full ROM to left wrist, hand, elbow. No obvious deformity to left forearm. Course Vital Signs Vital signs: Vital Signs Temperature 98.1 F 09/06/23 18:36 Pulse Rate 72 09/06/23 18:36 Respiratory Rate 20 09/06/23 18:36 Blood Pressure 100/63 09/06/23 18:36 Pulse Oximetry 97 09/06/23 18:36 Oxygen Delivery Method Room Air 09/06/23 18:36 Temperature 98.1 F 09/06/23 18:36 Pulse Rate 72 09/06/23 18:36 Respiratory Rate 20 09/06/23 18:36 Blood Pressure 100/63 09/06/23 18:36 Pulse Oximetry 97 09/06/23 18:36 Oxygen Delivery Method Room Air 09/06/23 18:36 MDM - Animal Bite MDM Narrative Medical decision making narrative: X-ray of the left forearm showed soft tissue injury along the lateral and volar proximal forearm without fracture or radiopaque foreign body. Her wounds were irrigated. Sutures were placed in the two lacerations utilizing sterile procedure. The areas were cleansed with Hibiclens. 1% lidocaine without epinephrine was injected to anesthetize the two areas. 4-0 Ethilon suture was used for closure. A total of 7 simple interrupted sutures were placed. She tolerated the procedure well. A dressing and betty wrap were applied. The application was checked and was appropriate; the LUE remained NVI. Her tetanus status was updated. A prescription was provided for Augmentin. Follow up with pcp for a recheck, further evaluation and treatment. Return precautions were discussed. Differential Diagnosis Differential diagnosis: Likely dog bite Medical Records Attestation: I reviewed the patient's medical records. Imaging Data XR left forearm: Attestation: I have reviewed the pertinent imaging results. Radiologist's impression: Procedure: XR forearm LT 2V EXAM: XR forearm LT 2V HISTORY: dog bite; shield abdomen COMPARISON: None. TECHNIQUE: 2 views of the left forearm are performed. FINDINGS: There is soft tissue swelling and soft tissue gas along the lateral and volar aspect of the left elbow proximally. No fracture. No radiopaque foreign body. No elbow effusion. IMPRESSION: Soft tissue injury along the lateral and volar proximal forearm without fracture or radiopaque foreign body. Electronically authenticated by: KAMILLA MILLS Date: 09/06/2023 20:03 Discharge Plan Discharge Chief Complaint: Animal Bite Clinical Impression: Dog bite Patient Disposition: Home, Self-Care Time of Disposition Decision: 19:48 Condition: Good Mode of Transportation: Private Vehicle Prescriptions / Home Meds: New amoxicillin-pot clavulanate 875-125 mg tablet 1 tab PO Q12H 5 Days Qty: 10 0RF No Action gabapentin 600 mg tablet 600 mg PO Q8H ondansetron HCl 4 mg tablet 8 mg PO Q6H PRN (Reason: nausea and vomiting) Vitamin Plus Low Iron 27 mg iron- 1 mg tablet 1 tab PO Q24H Instructions: Animal Bite (ED) Stand Alone Forms: Portal Instructions Referrals: [facility] [Primary Care Provider] - 1 week Discharge Date/Time: 09/06/23 20:11
[2023-09-06] MEDS: LIDOCAINE HCL 1% 100 MG/10 ML MDV INJ (19:04)
[2023-09-06] MEDS: ACETAMINOPHEN 500 MG TABLET 1000 MG PO (19:04)
[2023-09-06] MEDS: ADACEL DIPH,PERTUSS(ACELL),TET VAC/PF 0.5 ML ADULT SYRINGE IM (19:05)
[2023-09-06] MEDS: AMOXICILLIN/POTASSIUM CLAV 1 TAB TABLET PO (19:16)
--- NOTE | 2023-09-06 19:17 | PC.NURSE ---
Several puncture and laceration wounds to left forearm. Area cleansed with Hibicleanse.
== END 2023-09-06 20:11 | disposition home or self-care (01) ==
PROVIDERS: Emergency Provider Emergency Medicine
DX: O9A.213 Injury, poisoning and certain other consequences of external causes complicating pregnancy, third trimester (principal); Z23 Encounter for immunization; S51.852A Open bite of left forearm, initial encounter; W54.0XXA Bitten by dog, initial encounter; Z3A.31 31 weeks gestation of pregnancy; Z79.899 Other long term (current) drug therapy
CPT/HCPCS: 12001; 73090; 90471; 90715; 99283

== ENCOUNTER 2023-09-07 07:05 | Outpatient (OUT) | payer OTHER, SELFPAY ==
--- NOTE | 2023-09-07 | US_ITS ---
[address] [address] Patient Name: NOE ERVIN MRN: [facility]:[id number] date: 1995 Sex: F Assigned Patient Location: [facility] Current Patient Location: Accession/Order Number: [id number] Exam Date: 09/07/2023 17:10 Report Date: 09/09/2023 00:17 At the request of: LUIS FELIPE HALL Procedure: US OB BPP w non-stress EXAMINATION: US OB BPP w non-stress HISTORY: OLIGOHYDRAMNIOS COMPARISON: Ultrasound OB growth 09/05/2023 TECHNIQUE: Ultrasound biophysical profile was performed in the radiology department. BREATHING MOVEMENTS: 0.0 GROSS BODY MOVEMENTS: 2.0 TONE: 2.0 QUALITATIVE AMNIOTIC FLUID VOLUME: 2.0 PRESENTATION: CEPHALIC HEART RATE: 121.6 bpm bpm. AMNIOTIC FLUID VOLUME: 11.2 cm GESTATIONAL AGE: 30 weeks 5 days CONCLUSION: Total biophysical profile score 6.0. Electronically authenticated by: CHRISTINE SÁNCHEZ Date: 09/09/2023 00:17
--- OUTSIDE RECORDS SUMMARY | 2023-09-07 07:08 | XMS_ITS | CCD ---
Author Name Unknown Address [address] [place] [address] Organization [facility] Care Team Providers Care Billboard Poster Helper Name Role Phone ANGELO SPICER Unavailable Unavailable LIGIA SPICEREEP Unavailable Unavailable ROCHELLE WILLAMS Unavailable Unavailable Rochelle Willams Primary Care Provider Lima Cornell Attending Unavailab le Rochelle Willams Primary Care Provider [phone] KADI DIXON Referring Unavailable ROCHELLE WILLAMS Primary [...] Unavailable NADERER, DR RODO Dickerson Admitting Unavailable [facility] Primary Care Unavaila ble GRECHNY ., ADELITA ORELLANA Consulting Unavailluis CAMARILLO, MYLES Alex Consulting Unavailable GAYE, GURU Consulting Unavailable ALFREDDOYOSEPH, ALIX Consulting Unavailable LINA, KAMILLA Consulting Unavailable SISTER, DANIELA Consulting Unavailable ROBBY ., DR MENENDEZ Consulting Unavailable [facility] Primary Care Unavaila ble ROBBY ., DR MENENDEZ Attending Unavailable ROBBY ., DR MENENDEZ Admitting Unavailable ELENITA, NGOC Consulting Unavailable GEMBUS, AUGUSTUS Consulting Unavailable [facility] Primary Care Unavaila ble ROBBY ., DR MENENDEZ Consulting Unavailable ROBBY ., DR MENENDEZ Attending Unavailable ROBBY ., DR MENENDEZ Admitting Unavailable ZIEBER, DR CHRISTINE Benites Consulting Unavailable ROBBY ., DR MENENDEZ Consulting Unavailable [facility] Primary Care Unavaila ble ROBBY ., DR MENENDEZ Attending Unavailable ROBBY ., DR MENENDEZ Admitting Unavailable ROBBY ., DR MENENDEZ Consulting Unavailable DESTINY, KADI R Primary Care Unavailable ROBBY ., DR MENENDEZ Attending Unavailable ROBBY ., DR MENENDEZ Admitting Unavailable ZIEBER, DR CHRISTINE Benites Consulting Unavailable LUIS FELIPE HALL Attending Unavailable ROBBY, YOUSIF Attending Unavailable LUIS FELIPE HALL Attending Unavailable Allergies Allergy Classification Reported Allergen(s) Allergy Type Date of Onset Reaction(s) Facility (1 source) No Known Medication Allergies; Translations: [No Known Medication Allergies] Propensity to adverse reactions to drug (disorder) [facility] Medications Current Medications Medication Drug [...] Onset: 11-05-2017 Other aftercare (1 source) Other longwall foreman (current) drug therapy; Translations: [OTH DIRECTOR OF FINANCIAL REPORTING CURRENT DRUG THERAPY] Onset: 12-25-2022 Episodic Other [...] Trimethoprim/Sulfamet hoxazole >=320 R F Normal [facility] Comment on above: Performed By: #### C BC #### [facility] [address] [place] [address] Dr. Hemanth Kerr CBC AUTO DIFFon 11-29-2022 BASO # 0.0 103/ul Normal 0.0-0.1 [facility] Comment on above: Performed By: #### C BC #### [facility] [address] [address] [address] Hemanth Kerr Basophils/100 WBC (Bld) 0.7 % Normal 0.2-2.0 [facility] Comment on above: Performed By: #### C BC #### [facility] [address] [address] [address] Hemanth Kerr EO # 0.2 103/ul Normal 0.0-0.7 [facility] Comment on above: Performed By: #### C BC #### [facility] [address] [address] [address] Hemanth Kerr Eosinophils/100 WBC (Bld) 3.3 % Normal 0.9-7.0 [facility] Comment on above: Performed By: #### C BC #### [facility] [address] [place] [address] Dr. Hemanth Kerr Erythrocyte distribution width (RBC) [Ratio] 14.3 % Normal 11.0-15.0 [facility] Comment on above: Performed By: #### C BC #### [facility] [address] [place] [address] Dr. Hemanth Kerr Hematocrit (Bld) [Volume fraction] 37.2 % Normal 36.0-48.0 [facility] Comment on above: Performed By: #### C BC #### [facility] [address] [place] [address] Dr. Hemanth Kerr Hemoglobin (Bld) [Mass/Vol] 11.9 g/dL Critically low 12.0-16.0 [facility] Comment on above: Performed By: #### C BC #### [facility] [address] [place] [address] Dr. Hemanth Kerr IG # 0.01 10e3/ul Normal 0.00-0.03 [facility] Comment on above: Performed By: #### C BC #### [facility] [address] [address] [address] Hemanth Kerr IG % 0.2 % Normal 0.0-0.5 [facility] Comment on above: Performed By: #### C BC #### [facility] [address] [place] [address] Dr. Hemanth Kerr LYMPH # 1.7 103/ul Normal 1.2-3.8 [facility] Comment on above: Performed By: #### C BC #### [facility] [address] [place] [address] Dr. Hemanth Kerr Lymphocytes/100 WBC (Bld) 31.3 % Normal 20.5-60.0 [facility] Comment on above: Performed By: #### C BC #### [facility] [address] [place] [address] Dr. Hemanth Kerr MANUAL DIFF REQ NO Normal [facility] Comment on above: Performed By: #### C BC #### [facility] [address] [place] [address] Dr. Hemanth Kerr MCH (RBC) [Entitic mass] 27.8 pg Normal 26.7-34.0 [facility] Comment on above: Performed By: #### C BC #### [facility] [address] [place] [address] Dr. Hemanth Kerr MCHC (RBC) [Mass/Vol] 32.0 g/dL Normal 29.9-35.2 [facility] Comment on above: Performed By: #### C BC #### [facility] [address] [place] [address] Dr. Hemanth Kerr MCV (RBC) [Entitic vol] 86.9 fL Normal 81.0-99.0 [facility] Comment on above: Performed By: #### C BC #### [facility] [address] [place] [address] Dr. Hemanth Kerr MONO # 0.4 103/ul Normal 0.3-0.8 [facility] Comment on above: Performed By: #### C BC #### [facility] [address] [place] [address] Dr. Hemanth Kerr Monocytes/100 WBC (Bld) 8.0 % Normal 1.7-12.0 [facility] Comment on above: Performed By: #### C BC #### [facility] [address] [place] [address] Dr. Hemanth Kerr NEUT # 3.1 103/ul Normal 1.4-6.5 [facility] Comment on above: Performed By: #### C BC #### [facility] [address] [place] [address] Dr. Hemanth Kerr Neutrophils/100 WBC (Bld) 56.5 % Normal 43.0-75.0 [facility] Comment on above: Performed By: #### C BC #### [facility] [address] [place] [address] Dr. Hemanth Kerr Platelet mean volume (Bld) [Entitic vol] 10.3 fL Normal 9.5-13.5 [facility] Comment on above: Performed By: #### C BC #### [facility] [address] [place] [address] Dr. Hemanth Kerr PLT 258 103/ul Normal 150-450 [facility] Comment on above: Performed By: #### C BC #### [facility] [address] [place] [address] Dr. Hemanth Kerr RBC 4.28 106/ul Normal 4.20-5.40 [facility] Comment on above: Performed By: #### C BC #### [facility] [address] [place] [address] Dr. Hemanth Kerr WBC 5.4 103/ul Normal 4.0-11.0 [facility] Comment on above: Performed By: #### C BC #### [facility] [address] [place] [address] Dr. Hemanth Kerr PROF 14(COMP METB)on 023 Albumin [Mass/Vol] 3.1 g/dL Critically low 3.4-5.0 [facility] Comment on above: Performed By: #### C MP #### [facility] [address] [place] [address] Dr. Hemanth Kerr Albumin/Globulin [Mass ratio] 1.3 {ratio} Normal [facility] Comment on above: Performed By: #### C MP #### [facility] [address] [address] [address] Hemanth Kerr ALP [Catalytic activity/Vol] 56 U/L Normal 46-116 [facility] Comment on above: Performed By: #### C MP #### [facility] [address] [address] [address] Hemanth Kerr ALT [Catalytic activity/Vol] 34 U/L Normal 14-59 [facility] Comment on above: Performed By: #### C MP #### [facility] [address] [place] [address] Dr. Hemanth Kerr Anion gap [Moles/Vol] 7.0 mmol/L Normal [facility] Comment on above: Performed By: #### C MP #### [facility] [address] [place] [address] Dr. Hemanth Kerr AST [Catalytic activity/Vol] 29 U/L Normal 15-37 [facility] Comment on above: Performed By: #### C MP #### [facility] [address] [place] [address] Dr. Hemanth Kerr Bilirubin [Mass/Vol] 0.4 mg/dL Normal 0.2-1.0 [facility] Comment on above: Performed By: #### C MP #### [facility] [address] [place] [address] Dr. Hemanth Kerr Calcium [Mass/Vol] 8.3 mg/dL Critically low 8.5-10.1 Th [facility] Comment on above: Performed By: #### C MP #### [facility] [address] [place] [address] Dr. Hemanth Kerr Chloride [Moles/Vol] 110 mmol/L Critically high 98-107 [facility] Comment on above: Performed By: #### C MP #### [facility] [address] [place] [address] Dr. Hemanth Kerr CO2 [Moles/Vol] 27.6 mmol/L Normal 21.0-32.0 [facility] Comment on above: Performed By: #### C MP #### [facility] [address] [place] [address] Dr. Hemanth Kerr Creatinine [Mass/Vol] 0.61 mg/dL Normal 0.55-1.02 [facility] Comment on above: Performed By: #### C MP #### [facility] [address] [address] [address] Hemanth Kerr EGFR-AF INDIAN >60 Normal >=60 [facility] Comment on above: Performed By: #### C MP #### [facility] [address] [address] [address] Hemanth Kerr EGFR-NON AF INDIAN >60 Normal >=60 [facility] Comment on above: Performed By: #### C MP #### [facility] [address] [address] [address] Hemanth Kerr Globulin (S) [Mass/Vol] 2.4 g/dL Normal [facility] Comment on above: Performed By: #### C MP #### [facility] [address] [place] [address] Dr. Hemanth Kerr Glucose [Mass/Vol] 110 mg/dL Critically high 74-106 [facility] Comment on above: Performed By: #### C MP #### [facility] [address] [address] [address] Hemanth Kerr Potassium [Moles/Vol] 2.6 mmol/L Critically low 3.5-5.1 [facility] Comment on above: Performed By: #### C MP #### [facility] [address] [place] [address] Dr. Hemanth Kerr Protein [Mass/Vol] 5.5 g/dL Critically low 6.4-8.2 Th [facility] Comment on above: Performed By: #### C MP #### [facility] [address] [address] [address] Hemanth Kerr Sodium [Moles/Vol] 142 mmol/L Normal 136-145 [facility] Comment on above: Performed By: #### C MP #### [facility] [address] [place] [address] Dr. Hemanth Kerr Urea nitrogen [Mass/Vol] 12.0 mg/dL Normal 7.0-18.0 [facility] Comment on above: Performed By: #### C MP #### [facility] [address] [address] [address] Hemanth Kerr Urea nitrogen/Creatinine [Mass ratio] 19.7 mg/mg Normal [facility] Comment on above: Performed By: #### C MP #### [facility] [address] [address] [address] Hemanth Kerr XR HIP LT 2 [...] ALIX GRANADOS Date: 2022-11-28 22:13 Normal [facility] ACETAMINOPHENon 11-28-2022 Acetaminophen [Mass/Vol] ug/mL Critically low 10.0-30.0 [facility] Comment on above: Performed By: #### C MP #### [facility] [address] [address] [address] Hemanth Kerr ACETONE SERUMon 11-28-2022 ACETONE Negative Normal NEGATIVE [facility] Comment on above: Performed By: #### P REG #### [facility] [address] [address] [address] Hemanth Kerr AMMONIAon 11-28-2022 Ammonia (P) [Moles/Vol] 24 umol/L Normal 11-32 [facility] Comment on above: Performed By: #### L ACT #### [facility] [address] [address] [address] Hemanth Kerr CBC AUTO DIFFon 11-28-2022 BASO # 0.0 103/ul Normal 0.0-0.1 [facility] Comment on above: Performed By: #### L ACT #### [facility] [address] [address] [address] Hemanth Kerr Basophils/100 WBC (Bld) 0.4 % Normal 0.2-2.0 [facility] Comment on above: Performed By: #### L ACT #### [facility] [address] [place] [address] Dr. Hemanth Kerr EO # 0.3 103/ul Normal 0.0-0.7 [facility] Comment on above: Performed By: #### L ACT #### [facility] [address] [place] [address] Dr. Hemanth Kerr Eosinophils/100 WBC (Bld) 3.1 % Normal 0.9-7.0 [facility] Comment on above: Performed By: #### L ACT #### [facility] [address] [place] [address] Dr. Hemanth Kerr Erythrocyte distribution width (RBC) [Ratio] 14.3 % Normal 11.0-15.0 [facility] Comment on above: Performed By: #### L ACT #### [facility] [address] [place] [address] Dr. Hemanth Kerr Hematocrit (Bld) [Volume fraction] 41.3 % Normal 36.0-48.0 [facility] Comment on above: Performed By: #### L ACT #### [facility] [address] [place] [address] Dr. Hemanth Kerr Hemoglobin (Bld) [Mass/Vol] 13.3 g/dL Normal 12.0-16.0 [facility] Comment on above: Performed By: #### L ACT #### [facility] [address] [place] [address] Dr. Hemanth Kerr IG # 0.02 10e3/ul Normal 0.00-0.03 [facility] Comment on above: Performed By: #### L ACT #### [facility] [address] [place] [address] Dr. Hemanth Kerr IG % 0.2 % Normal 0.0-0.5 [facility] Comment on above: Performed By: #### L ACT #### [facility] [address] [place] [address] Dr. Hemanth Kerr LYMPH # 2.4 103/ul Normal 1.2-3.8 [facility] Comment on above: Performed By: #### L ACT #### [facility] [address] [place] [address] Dr. Hemanth Kerr Lymphocytes/100 WBC (Bld) 26.3 % Normal 20.5-60.0 [facility] Comment on above: Performed By: #### L ACT #### [facility] [address] [place] [address] Dr. Hemanth Kerr MANUAL DIFF REQ NO Normal [facility] Comment on above: Performed By: #### L ACT #### [facility] [address] [place] [address] Dr. Hemanth Kerr MCH (RBC) [Entitic mass] 27.4 pg Normal 26.7-34.0 [facility] Comment on above: Performed By: #### L ACT #### [facility] [address] [place] [address] Dr. Hemanth Kerr MCHC (RBC) [Mass/Vol] 32.2 g/dL Normal 29.9-35.2 [facility] Comment on above: Performed By: #### L ACT #### [facility] [address] [place] [address] Dr. Hemanth Kerr MCV (RBC) [Entitic vol] 85.0 fL Normal 81.0-99.0 [facility] Comment on above: Performed By: #### L ACT #### [facility] [address] [place] [address] Dr. Hemanth Kerr MONO # 0.7 103/ul Normal 0.3-0.8 [facility] Comment on above: Performed By: #### L ACT #### [facility] [address] [place] [address] Dr. Hemanth Kerr Monocytes/100 WBC (Bld) 7.3 % Normal 1.7-12.0 [facility] Comment on above: Performed By: #### L ACT #### [facility] [address] [place] [address] Dr. Hemanth Kerr NEUT # 5.7 103/ul Normal 1.4-6.5 [facility] Comment on above: Performed By: #### L ACT #### [facility] [address] [address] [address] Hemanht Kerr Neutrophils/100 WBC (Bld) 62.7 % Normal 43.0-75.0 [facility] Comment on above: Performed By: #### L ACT #### [facility] [address] [address] [address] Hemanth Kerr Platelet mean volume (Bld) [Entitic vol] 10.6 fL Normal 9.5-13.5 [facility] Comment on above: Performed By: #### L ACT #### [facility] [address] [place] [address] Dr. Hemanth Kerr PLT 347 103/ul Normal 150-450 [facility] Comment on above: Performed By: #### L ACT #### [facility] [address] [place] [address] Dr. Hemanth Kerr RBC 4.86 106/ul Normal 4.20-5.40 [facility] Comment on above: Performed By: #### L ACT #### [facility] [address] [place] [address] Dr. Hemanth Kerr WBC 9.1 103/ul Normal 4.0-11.0 [facility] Comment on above: Performed By: #### L ACT #### [facility] [address] [place] [address] CSPINE WO CONon [...] KAMILLA MILLS Date: 2022-11-28 17:54 Normal [facility] CT HEAD WO CONon 11-28-2022 CT HEAD [...] KAMILLA MILLS Date: 2022-11-28 18:40 Normal [facility] CULTURE BLOODon 11-28-2022 Microscopic examination of blood, culture Culture Observations: NO GROWTH AT 5 DAYS. Normal [facility] Comment on above: Performed By: #### C BC #### [facility] [address] [address] [address] Hemanth Kerr Microscopic examination of blood, culture Culture Observations: NO GROWTH AT 5 DAYS. Normal [facility] Comment on above: Performed By: #### B [id number] #### [facility] [address] [place] [address] Dr. Hemanth Kerr Covid-19 PCR ([facility])on 11-15 SARS-CoV-2 (COVID-19) RNA ELMO+probe Ql (Unsp spec) Not detected Normal NOT DETECTED [facility] Comment on above: Result Comment: When diagnostic [...] for this test is supported by the [place] of Health and Human Service's declaration that [...] used). Performed By: #### L ACT #### [facility] [address] [place] [address] Dr. Hemanth Kerr DRUG SCREEN RAPID (URINE)on 11-28-2022 AMP Positive Abnormal NEGATIVE [facility] Comment on above: Performed By: #### P REG #### [facility] [address] [place] [address] Dr. Hemanth Kerr BAR Negative Normal NEGATIVE [facility] Comment on above: Performed By: #### P REG #### [facility] [address] [place] [address] Dr. Hemanth Kerr BUP Negative Normal NEGATIVE [facility] Comment on above: Performed By: #### P REG #### [facility] [address] [place] [address] Dr. Hemanth Kerr BZO Negative Normal NEGATIVE [facility] Comment on above: Performed By: #### P REG #### [facility] [address] [place] [address] Dr. Hemanth Kerr YOLANDA Negative Normal NEGATIVE [facility] Comment on above: Performed By: #### P REG #### [facility] [address] [place] [address] Dr. Hemanth Kerr CUT-OFFS SEE BELOW Normal [facility] Comment on above: Result Comment: AMP (Amphetamine): 500ng/mL, BAR (Barbituates): 200 ng/mL, BZO (Benzodiazepines): 150 ng/mL, BUP (Buprenorphine): 10 ng/mL, YOLANDA (Cocaine): 150 ng/mL, mAMP (Methamphetamine): 500 ng/mL, MTD (Methadone): 200 ng/mL, OPI (Opiates): 100 ng/mL, OXY (Oxycodone): 100 ng/mL, PCP (Phencyclidine): 25 ng/mL, PPX (Propoxyphene): 300 ng/mL, THC (Cannabinoids): 50 ng/mL, TCA (Trycyclic Antidepressants): 300 ng/mL Performed By: #### P REG #### [facility] [address] [place] [address] Dr. Hemanth Kerr DRUG CUT HEADER DRUG CLASS TEST SYSTEM CUT-OFF CONCENTRATIONS ARE FOLLOWS: Normal [facility] Comment on above: Performed By: #### P REG #### [facility] [address] [place] [address] Dr. Hemanth Kerr mAMP Positive Abnormal NEGATIVE [facility] Comment on above: Performed By: #### P REG #### [facility] [address] [place] [address] Dr. Hemanth Kerr MTD Negative Normal NEGATIVE [facility] Comment on above: Performed By: #### P REG #### [facility] [address] [place] [address] Dr. Hemanth Kerr OPI Negative Normal NEGATIVE [facility] Comment on above: Performed By: #### P REG #### [facility] [address] [place] [address] Dr. Hemanth Kerr OXY Negative Normal NEGATIVE [facility] Comment on above: Performed By: #### P REG #### [facility] [address] [place] [address] Dr. Hemanth Kerr PCP Negative Normal NEGATIVE [facility] Comment on above: Performed By: #### P REG #### [facility] [address] [place] [address] Dr. Hemanth Kerr PPX Negative Normal NEGATIVE [facility] Comment on above: Performed By: #### P REG #### [facility] [address] [address] [address] Hemanth Kerr TCA Negative Normal NEGATIVE [facility] Comment on above: Performed By: #### P REG #### [facility] [address] [place] [address] Dr. Hemanth Kerr THC Negative Normal NEGATIVE [facility] Comment on above: Performed By: #### P REG #### [facility] [address] [place] [address] Dr. Hemanth Kerr ER URINE PROFILEon 3 Bilirubin Ql (U) Negative Normal NEGATIVE [facility] Comment on above: Performed By: #### P REG #### [facility] [address] [place] [address] Dr. Hemanth Kerr Clarity (U) CLEAR Normal CLEAR [facility] Comment on above: Performed By: #### P REG #### [facility] [address] [place] [address] Dr. Hemanth Kerr Color (U) LT. YELLOW Normal YELLOW [facility] Comment on above: Performed By: #### P REG #### [facility] [address] [place] [address] Dr. Hemanth Kerr ERUAbi A micrscopic examination will be performed if indicated. Normal [facility] Comment on above: Performed By: #### P REG #### [facility] [address] [place] [address] Dr. Hemanth Kerr Glucose Ql (U) Negative Normal NEGATIVE [facility] Comment on above: Performed By: #### P REG #### [facility] [address] [place] [address] Dr. Hemanth Kerr Hemoglobin Ql (U) Negative Normal NEGATIVE [facility] Comment on above: Performed By: #### P REG #### [facility] [address] [place] [address] Dr. Hemanth Kerr Ketones Ql (U) Negative Normal NEGATIVE [facility] Comment on above: Performed By: #### P REG #### [facility] [address] [place] [address] Dr. Hemanth Kerr LEUKOCYTES Negative Normal NEGATIVE [facility] Comment on above: Performed By: #### P REG #### [facility] [address] [place] [address] Dr. Hemanth Kerr Nitrite Ql (U) Positive Abnormal NEGATIVE [facility] Comment on above: Performed By: #### P REG #### [facility] [address] [place] [address] Dr. Hemanth Kerr pH (U) 7.5 [pH] Normal 5-9 [facility] Comment on above: Performed By: #### P REG #### [facility] [address] [place] [address] Dr. Hemanth Kerr SPEC GRAVITY 1.020 Normal 1.005-<=1.025 [facility] Comment on above: Performed By: #### P REG #### [facility] [address] [place] [address] Dr. Hemanth Kerr UA PROTEIN TRACE Normal NEGATIVE/ TRACE [facility] Comment on above: Performed By: #### P REG #### [facility] [address] [place] [address] Dr. Hemanth Kerr UR MICRO IND INDICATED Normal [facility] Comment on above: Performed By: #### P REG #### [facility] [address] [place] [address] Dr. Hemanth Kerr Urobilinogen Qn (U) 1.0 {Jose'U}/dL Normal 0.2 - 1. 0 [facility] Comment on above: Performed By: #### P REG #### [facility] [address] [place] [address] Dr. Hemanth Kerr ETHANOL (BLD ALC)on 11-29-19 23 ALC NOTE NOTE: 80 mg/dl is th e legal limit for a blood alcohol level Normal [facility] Comment on above: Performed By: #### C MP #### [facility] [address] [place] [address] Dr. Hemanth Kerr Ethanol [Mass/Vol] mg/dL Normal [facility] Comment on above: Performed By: #### C MP #### [facility] [address] [place] [address] Dr. Hemanth Kerr LACTATE/LACTIC ACIDon 2022 Lactate [Moles/Vol] 0.7 mmol/L Normal 0.4-2.0 [facility] Comment on above: Performed By: #### L ACT #### [facility] [address] [address] [address] Hemanth Kerr Lactate [Moles/Vol] 9.0 mmol/L Critically high 0.4-2.0 [facility] Comment on above: Performed By: #### L ACT #### [facility] [address] [address] [address] Hemanth Kerr PH VENOUS BLOODon 11-28-2022 PCO2 VENOUS 36.6 mmHg Critically low 40.0-52.0 [facility] Comment on above: Performed By: #### P HVEN #### [facility] [address] [place] [address] Dr. Hemanth Kerr pH VENOUS 7.354 Normal 7.330-7.430 [facility] Comment on above: Performed By: #### P HVEN #### [facility] [address] [place] [address] Dr. Hemanth Kerr POINT OF CARE GLUCOSEon 11-15 Glucose [Mass/Vol] 127 mg/dL Critically high 74-106 [facility] Comment on above: Performed By: #### C BC #### [facility] [address] [place] [address] Dr. Hemanth Kerr PREG HCG QUALon 11-28-2022 , QUAL Negative Normal NEGATIVE [facility] Comment on above: Performed By: #### P REG #### [facility] [address] [place] [address] Dr. Hemanth Kerr PROF 14(COMP METB)on 023 Albumin [Mass/Vol] 3.7 g/dL Normal 3.4-5.0 [facility] Comment on above: Performed By: #### L ACT #### [facility] [address] [place] [address] Dr. Hemanth Kerr Albumin/Globulin [Mass ratio] 1.3 {ratio} Normal [facility] Comment on above: Performed By: #### L ACT #### [facility] [address] [address] [address] Hemanth Kerr ALP [Catalytic activity/Vol] 72 U/L Normal 46-116 [facility] Comment on above: Performed By: #### L ACT #### [facility] [address] [address] [address] Hemanth Kerr ALT [Catalytic activity/Vol] 42 U/L Normal 14-59 [facility] Comment on above: Performed By: #### L ACT #### [facility] [address] [address] [address] Hemanth Kerr Anion gap [Moles/Vol] 16.3 mmol/L Normal [facility] Comment on above: Performed By: #### L ACT #### [facility] [address] [place] [address] Dr. Hemanth Kerr AST [Catalytic activity/Vol] 45 U/L Critically high 15-37 [facility] Comment on above: Performed By: #### L ACT #### [facility] [address] [place] [address] Dr. Hemanth Kerr Bilirubin [Mass/Vol] 0.4 mg/dL Normal 0.2-1.0 [facility] Comment on above: Performed By: #### L ACT #### [facility] [address] [place] [address] Dr. Hemanth Kerr Calcium [Mass/Vol] 8.8 mg/dL Normal 8.5-10.1 [facility] Comment on above: Performed By: #### L ACT #### [facility] [address] [place] [address] Dr. Hemanth Kerr Chloride [Moles/Vol] 107 mmol/L Normal 98-107 [facility] Comment on above: Performed By: #### L ACT #### [facility] [address] [address] [address] Hemanth Kerr CO2 [Moles/Vol] 21.8 mmol/L Normal 21.0-32.0 [facility] Comment on above: Performed By: #### L ACT #### [facility] [address] [address] [address] Hemanth Kerr Creatinine [Mass/Vol] 1.32 mg/dL Critically high 0.55-1.02 [facility] Comment on above: Performed By: #### L ACT #### [facility] [address] [address] [address] Hemanth Kerr EGFR-AF INDIAN 58 mL/min/1.73m2 Critically low >=60 [facility] Comment on above: Performed By: #### L ACT #### [facility] [address] [address] [address] Hemanth Kerr EGFR-NON AF INDIAN 48 mL/min/1.73m2 Critically low >=60 [facility] Comment on above: Performed By: #### L ACT #### [facility] [address] [place] [address] Dr. Hemanth Kerr Globulin (S) [Mass/Vol] 2.9 g/dL Normal [facility] Comment on above: Performed By: #### L ACT #### [facility] [address] [address] [address] Hemanth Kerr Glucose [Mass/Vol] 143 mg/dL Critically high 74-106 [facility] Comment on above: Performed By: #### L ACT #### [facility] [address] [address] [address] Hemanth Kerr Potassium [Moles/Vol] 3.1 mmol/L Critically low 3.5-5.1 [facility] Comment on above: Performed By: #### L ACT #### [facility] [address] [address] [address] Hemanth Kerr Protein [Mass/Vol] 6.6 g/dL Normal 6.4-8.2 [facility] Comment on above: Performed By: #### L ACT #### [facility] [address] [address] [address] Hemanth Kerr Sodium [Moles/Vol] 142 mmol/L Normal 136-145 [facility] Comment on above: Performed By: #### L ACT #### [facility] [address] [address] [address] Hemanth Kerr Urea nitrogen [Mass/Vol] 17.0 mg/dL Normal 7.0-18.0 [facility] Comment on above: Performed By: #### L ACT #### [facility] [address] [place] [address] Dr. Hemanth Kerr Urea nitrogen/Creatinine [Mass ratio] 12.9 mg/mg Normal [facility] Comment on above: Performed By: #### L ACT #### [facility] [address] [place] [address] Dr. Hemanth Kerr PROTIMEon 11-28-2022 INR Coag (PPP) [Relative time] 0.97 {INR} Normal [facility] Comment on above: Performed By: #### P T, PTT #### [facility] [address] [place] [address] Dr. Hemanth Kerr INR GUIDELINES SEE BELOW Normal [facility] Comment on above: Result Comment: CHAN RED INR: 2.0 - 3.0 CONDITIONS NOT LISTED BELOW 2.5 - 3.5 FOR PROSTHETIC HEART VALVE REPLACEMENT 2.5 - 3.5 RECURRENT THROMBOSIS Performed By: #### P T, PTT #### [facility] [address] [place] [address] Dr. Hemanth Kerr PT Coag (PPP) [Time] 10.3 s Normal 9.0-11.6 [facility] Comment on above: Performed By: #### P T, PTT #### [facility] [address] [place] [address] Dr. Hemanth Kerr PTTon 11-28-2022 aPTT Coag (Bld) [Time] 25.4 s Normal 22.3-36.2 [facility] Comment on above: Performed By: #### P T, PTT #### [facility] [address] [place] [address] Dr. Hemanth Kerr SALICYLATEon 11-28-2022 SALICYLATE <2.8 Normal <=19.9 [facility] Comment on above: Performed By: #### C MP #### [facility] [address] [place] [address] Dr. Hemanth Kerr TROPONIN, HIGH SENSITIVITYon 11-28-2022 HSTROP 4.2 pg/mL Normal 4.0-51.3 [facility] Comment on above: Result Comment: CUT- OFF POINTS HAVE BEEN ESTABLISHED BASED ON THE FOURTH UNIVERSAL DEFINITIONS OF MYOCARDIAL INFARCTION. THE UPPER REFERENCE LIMIT (URL) OF TROPONIN, DEFINED THE 99TH PERCENTILE OF cTnI DISTRIBUTION IN A REFERENCE POPULATION, HAS BEEN CONFIRMED THE DECISION THRESHOLD FOR NH DIAGNOSIS. Performed By: #### C MP #### [facility] [address] [place] [address] Dr. Hemanth Kerr TSHon 11-28-2022 TSH 3.476 uIU/mL Normal 0.358-3.740 [facility] Comment on above: Performed By: #### L ACT #### [facility] [address] [place] [address] Dr. Hemanth Kerr URINE MICROSCOPIC ONLYon BACTERIA LARGE Abnormal NONE SEEN [facility] Comment on above: Performed By: #### P REG #### [facility] [address] [place] [address] Dr. Hemanth Kerr Bacteria identified Cx Nom (U) INDICATED Normal [facility] Comment on above: Performed By: #### P REG #### [facility] [address] [place] [address] Dr. Hemanth Kerr CAST SEEN Abnormal NONE SEEN [facility] Comment on above: Performed By: #### P REG #### [facility] [address] [place] [address] Dr. Hemanth Kerr COARSE GRANULAR CAST RARE Normal [facility] Comment on above: Performed By: #### P REG #### [facility] [address] [place] [address] Dr. Hemanth Kerr Crystals LM Nom (Urine sed) NONE SEEN Normal NONE SEEN [facility] Comment on above: Performed By: #### P REG #### [facility] [address] [place] [address] Dr. Hemanth Kerr Epithelial cells LM Ql (Urine sed) RARE Normal NONE SEEN /RARE [facility] Comment on above: Performed By: #### P REG #### [facility] [address] [place], [place] [id number] Dr. Hemanth Kerr MUCOUS NONE SEEN Normal NONE SEEN [facility] Comment on above: Performed By: #### P REG #### [facility] [address] [place] [address] Dr. Hemanth Kerr RBC 0-2 Normal 0-2 [facility] Comment on above: Performed By: #### P REG #### [facility] [address] [place] [address] Dr. Hemanth Kerr WBC 2-5 Abnormal NONE SEEN [facility] Comment on above: Performed By: #### P REG #### [facility] [address] [place] [address] Dr. Hemanth Kerr XR CHEST 1 Von [...] by: KAMILLA MILLS Date: 2022-11-28 17:39 Normal [facility] CULTURE URINEon 10-13-2022 CULTURE URINE Isolate 1 [...] Trimethoprim/Sulfamet hoxazole >=320 R F Normal [facility] Comment on above: Performed By: #### U RCX #### [facility] [address] [address] [address] Hemanth Kerr CBC AUTO DIFFon 10-11-2022 BASO # 0.0 103/ul Normal 0.0-0.1 [facility] Comment on above: Performed By: #### C BC #### [facility] [address] [address] [address] Hemanth Kerr Basophils/100 WBC (Bld) 0.3 % Normal 0.2-2.0 [facility] Comment on above: Performed By: #### C BC #### [facility] [address] [address] [address] Hemanth Kerr EO # 0.0 103/ul Normal 0.0-0.7 [facility] Comment on above: Performed By: #### C BC #### [facility] [address] [place] [address] Dr. Hemanth Kerr Eosinophils/100 WBC (Bld) 0.4 % Critically low 0.9-7.0 [facility] Comment on above: Performed By: #### C BC #### [facility] [address] [place] [address] Dr. Hemanth Kerr Erythrocyte distribution width (RBC) [Ratio] 12.2 % Normal 11.0-15.0 [facility] Comment on above: Performed By: #### C BC #### [facility] [address] [place] [address] Dr. Hemanth Kerr Hematocrit (Bld) [Volume fraction] 38.6 % Normal 36.0-48.0 [facility] Comment on above: Performed By: #### C BC #### [facility] [address] [place] [address] Dr. Hemanth Kerr Hemoglobin (Bld) [Mass/Vol] 12.0 g/dL Normal 12.0-16.0 [facility] Comment on above: Performed By: #### C BC #### [facility] [address] [place] [address] Dr. Hemanth Kerr IG # 0.07 10e3/ul Critically high 0.00-0.03 [facility] Comment on above: Performed By: #### C BC #### [facility] [address] [place] [address] Dr. Hemanth Kerr IG % 0.7 % Critically high 0.0-0.5 [facility] Comment on above: Performed By: #### C BC #### [facility] [address] [place] [address] Dr. Hemanth Kerr LYMPH # 1.2 103/ul Normal 1.2-3.8 [facility] Comment on above: Performed By: #### C BC #### [facility] [address] [place] [address] Dr. Hemanth Kerr Lymphocytes/100 WBC (Bld) 12.1 % Critically low 20.5-60.0 [facility] Comment on above: Performed By: #### C BC #### [facility] [address] [place] [address] Dr. Hemanth Kerr MANUAL DIFF REQ NO Normal [facility] Comment on above: Performed By: #### C BC #### [facility] [address] [place] [address] Dr. Hemanth Kerr MCH (RBC) [Entitic mass] 28.0 pg Normal 26.7-34.0 [facility] Comment on above: Performed By: #### C BC #### [facility] [address] [place] [address] Dr. Hemanth Kerr MCHC (RBC) [Mass/Vol] 31.1 g/dL Normal 29.9-35.2 [facility] Comment on above: Performed By: #### C BC #### [facility] [address] [place] [address] Dr. Hemanth Kerr MCV (RBC) [Entitic vol] 90.2 fL Normal 81.0-99.0 [facility] Comment on above: Performed By: #### C BC #### [facility] [address] [place] [address] Dr. Hemanth Kerr MONO # 0.7 103/ul Normal 0.3-0.8 [facility] Comment on above: Performed By: #### C BC #### [facility] [address] [address] [address] Hemanth Kerr Monocytes/100 WBC (Bld) 6.9 % Normal 1.7-12.0 [facility] Comment on above: Performed By: #### C BC #### [facility] [address] [address] [address] Hemanth Kerr NEUT # 8.1 103/ul Critically high 1.4-6.5 [facility] Comment on above: Performed By: #### C BC #### [facility] [address] [address] [address] Hemanth Kerr Neutrophils/100 WBC (Bld) 79.6 % Critically high 43.0-75.0 [facility] Comment on above: Performed By: #### C BC #### [facility] [address] [place] [address] Dr. Hemanth Kerr Platelet mean volume (Bld) [Entitic vol] 10.8 fL Normal 9.5-13.5 [facility] Comment on above: Performed By: #### C BC #### [facility] [address] [address] [address] Hemanth Kerr PLT 452 103/ul Critically high 150-450 [facility] Comment on above: Performed By: #### C BC #### [facility] [address] [address] [address] Hemanth Kerr RBC 4.28 106/ul Normal 4.20-5.40 [facility] Comment on above: Performed By: #### C BC #### [facility] [address] [address] [address] Hemanth Kerr WBC 10.1 103/ul Normal 4.0-11.0 [facility] Comment on above: Performed By: #### C BC #### [facility] [address] [place] [address] ABD/PELVIS WO CONon [...] by: CHRISTINE SÁNCHEZ Date: 2022-10-11 14:45 Normal [facility] ER URINE PROFILEon 3 Bilirubin Ql (U) Negative Normal NEGATIVE [facility] Comment on above: Performed By: #### L ACT #### [facility] [address] [place] [address] Dr. Hemanth Kerr Clarity (U) CLEAR Normal CLEAR [facility] Comment on above: Performed By: #### L ACT #### [facility] [address] [address] [address] Hemanth Kerr Color (U) LT. YELLOW Normal YELLOW [facility] Comment on above: Performed By: #### L ACT #### [facility] [address] [place] [address] Dr. Hemanth Kerr ERUAHD A micrscopic examination will be performed if indicated. Normal [facility] Comment on above: Performed By: #### L ACT #### [facility] [address] [address] [address] Hemanth Kerr Glucose Ql (U) Negative Normal NEGATIVE [facility] Comment on above: Performed By: #### L ACT #### [facility] [address] [address] [address] Hemanth Kerr Hemoglobin Ql (U) LARGE Abnormal NEGATIVE [facility] Comment on above: Performed By: #### L ACT #### [facility] [address] [address] [address] Hemanth Kerr Ketones Ql (U) Negative Normal NEGATIVE [facility] Comment on above: Performed By: #### L ACT #### [facility] [address] [place] [address] Dr. Hemanth Kerr LEUKOCYTES SMALL Abnormal NEGATIVE [facility] Comment on above: Performed By: #### L ACT #### [facility] [address] [place] [address] Dr. Hemanth Kerr Nitrite Ql (U) Negative Normal NEGATIVE [facility] Comment on above: Performed By: #### L ACT #### [facility] [address] [address] [address] Hemanth Kerr pH (U) 6.5 [pH] Normal 5-9 [facility] Comment on above: Performed By: #### L ACT #### [facility] [address] [place] [address] Dr. Hemanth Kerr Protein (U) [Mass/Vol] 30 mg/dL Abnormal NEGATIVE/ TRACE [facility] Comment on above: Performed By: #### L ACT #### [facility] [address] [place] [address] Dr. Hemanth Kerr SPEC GRAVITY <=1.005 Abnormal 1.005-<=1.025 [facility] Comment on above: Performed By: #### L ACT #### [facility] [address] [place] [address] Dr. Hemanth Kerr UR MICRO IND INDICATED Normal [facility] Comment on above: Performed By: #### L ACT #### [facility] [address] [address] [address] Hemanth Kerr Urobilinogen Qn (U) 1.0 {Jose'U}/dL Normal 0.2 - 1. 0 [facility] Comment on above: Performed By: #### L ACT #### [facility] [address] [address] [address] Hemanth Kerr PREG HCG QUALon 10-11-2022 , QUAL Negative Normal NEGATIVE [facility] Comment on above: Performed By: #### P REG #### [facility] [address] [address] [address] Hemanth Kerr PROF CHEM 8 (BAS METB)on Anion gap [Moles/Vol] 9.4 mmol/L Normal [facility] Comment on above: Performed By: #### L ACT #### [facility] [address] [place] [address] Dr. Hemanth Kerr Calcium [Mass/Vol] 8.8 mg/dL Normal 8.5-10.1 [facility] Comment on above: Performed By: #### L ACT #### [facility] [address] [address] [address] Hemanth Kerr Chloride [Moles/Vol] 97 mmol/L Critically low 98-107 [facility] Comment on above: Performed By: #### L ACT #### [facility] [address] [place] [address] Dr. Hemanth Kerr CO2 [Moles/Vol] 32.4 mmol/L Critically high 21.0-32.0 [facility] Comment on above: Performed By: #### L ACT #### [facility] [address] [place] [address] Dr. Hemanth Kerr Creatinine [Mass/Vol] 0.65 mg/dL Normal 0.55-1.02 [facility] Comment on above: Performed By: #### L ACT #### [facility] [address] [place] [address] Dr. Hemanth Kerr EGFR-AF INDIAN >60 Normal >=60 [facility] Comment on above: Performed By: #### L ACT #### [facility] [address] [address] [address] Hemanth Kerr EGFR-NON AF INDIAN >60 Normal >=60 [facility] Comment on above: Performed By: #### L ACT #### [facility] [address] [place] [address] Dr. Hemanth Kerr Glucose [Mass/Vol] 117 mg/dL Critically high 74-106 [facility] Comment on above: Performed By: #### L ACT #### [facility] [address] [address] [address] Hemanth Kerr Potassium [Moles/Vol] 2.8 mmol/L Critically low 3.5-5.1 [facility] Comment on above: Performed By: #### L ACT #### [facility] [address] [place] [address] Dr. Hemanth Kerr Sodium [Moles/Vol] 135 mmol/L Critically low 136-145 [facility] Comment on above: Performed By: #### L ACT #### [facility] [address] [place] [address] Dr. Hemanth Kerr Urea nitrogen [Mass/Vol] 8.0 mg/dL Normal 7.0-18.0 [facility] Comment on above: Performed By: #### L ACT #### [facility] [address] [place] [address] Dr. Hemanth Kerr Urea nitrogen/Creatinine [Mass ratio] 12.3 mg/mg Normal [facility] Comment on above: Performed By: #### L ACT #### [facility] [address] [place] [address] Dr. Hemanth Kerr URINE MICROSCOPIC ONLYon BACTERIA SMALL Abnormal NONE SEEN [facility] Comment on above: Performed By: #### L ACT #### [facility] [address] [place], [place] [id number] Dr. Hemanth Kerr Bacteria identified Cx Nom (U) INDICATED Normal [facility] Comment on above: Performed By: #### L ACT #### [facility] [address] [place] [address] Dr. Heamnth Kerr CAST NONE SEEN Normal NONE SEEN [facility] Comment on above: Performed By: #### L ACT #### [facility] [address] [place] [address] Dr. Hemanth Kerr Crystals LM Nom (Urine sed) NONE SEEN Normal NONE SEEN [facility] Comment on above: Performed By: #### L ACT #### [facility] [address] [place] [address] Dr. Hemanth Kerr Epithelial cells LM Ql (Urine sed) FEW Abnormal NONE SEEN /RARE [facility] Comment on above: Performed By: #### L ACT #### [facility] [address] [place] [address] Dr. Hemanth Kerr MUCOUS NONE SEEN Normal NONE SEEN [facility] Comment on above: Performed By: #### L ACT #### [facility] [address] [place] [address] Dr. Hemanth Kerr RBC 0-2 Normal 0-2 [facility] Comment on above: Performed By: #### L ACT #### [facility] [address] [place] [address] Dr. Hemanth Kerr WBC 10-20 Abnormal NONE SEEN [facility] Comment on above: Performed By: #### L ACT #### [facility] [address] [place] [address] Dr. Hemanth Kerr PREG QUANT HCGon 09-12-2022 HCG QUANT 66 mIU/mL Normal [facility] Comment on above: Performed By: #### C MP #### [facility] [address] [place] [address] Dr. Hemanth Kerr HCG RANGE SEE BELOW Normal [facility] Comment on above: Result Comment: 5-50 0.2-1 WEEK 50-500 1-2 WEEKS 100-5,000 2-3 WEEKS 500-10,000 3-4 WEEKS 1,000-50,000 4-5 WEEKS 10,000-100,000 5-6 WEEKS 15,000-200,000 6-8 WEEKS 10,000-100,000 2-3 MONTHS Performed By: #### C MP #### [facility] [address] [place] [address] Dr. Hemanth Kerr CBC AUTO DIFFon 08-16-2022 BASO # 0.0 103/ul Normal 0.0-0.1 [facility] Comment on above: Performed By: #### L ACT #### [facility] [address] [place] [address] Dr. Hemanth Kerr Basophils/100 WBC (Bld) 0.6 % Normal 0.2-2.0 [facility] Comment on above: Performed By: #### L ACT #### [facility] [address] [address] [address] Hemanth Kerr EO # 0.1 103/ul Normal 0.0-0.7 [facility] Comment on above: Performed By: #### L ACT #### [facility] [address] [place] [address] Dr. Hemanth Kerr Eosinophils/100 WBC (Bld) 1.3 % Normal 0.9-7.0 [facility] Comment on above: Performed By: #### L ACT #### [facility] [address] [place] [address] Dr. Hemanth Kerr Erythrocyte distribution width (RBC) [Ratio] 12.0 % Normal 11.0-15.0 [facility] Comment on above: Performed By: #### L ACT #### [facility] [address] [place] [address] Dr. Hemanth Kerr Hematocrit (Bld) [Volume fraction] 35.6 % Critically low 36.0-48.0 [facility] Comment on above: Performed By: #### L ACT #### [facility] [address] [place] [address] Dr. Hemanth Kerr Hemoglobin (Bld) [Mass/Vol] 12.4 g/dL Normal 12.0-16.0 [facility] Comment on above: Performed By: #### L ACT #### [facility] [address] [place] [address] Dr. Hemanth Kerr IG # 0.02 10e3/ul Normal 0.00-0.03 [facility] Comment on above: Performed By: #### L ACT #### [facility] [address] [place] [address] Dr. Hemanth Kerr IG % 0.3 % Normal 0.0-0.5 [facility] Comment on above: Performed By: #### L ACT #### [facility] [address] [place] [address] Dr. Hemanth Kerr LYMPH # 1.9 103/ul Normal 1.2-3.8 [facility] Comment on above: Performed By: #### L ACT #### [facility] [address] [place] [address] Dr. Hemanth Kerr Lymphocytes/100 WBC (Bld) 27.5 % Normal 20.5-60.0 [facility] Comment on above: Performed By: #### L ACT #### [facility] [address] [place] [address] Dr. Hemanth Kerr MANUAL DIFF REQ NO Normal [facility] Comment on above: Performed By: #### L ACT #### [facility] [address] [place] [address] Dr. Hemanth Kerr MCH (RBC) [Entitic mass] 29.6 pg Normal 26.7-34.0 [facility] Comment on above: Performed By: #### L ACT #### [facility] [address] [place] [address] Dr. Hemanth Kerr MCHC (RBC) [Mass/Vol] 34.8 g/dL Normal 29.9-35.2 [facility] Comment on above: Performed By: #### L ACT #### [facility] [address] [place] [address] Dr. Hemanth Kerr MCV (RBC) [Entitic vol] 85.0 fL Normal 81.0-99.0 [facility] Comment on above: Performed By: #### L ACT #### [facility] [address] [place] [address] Dr. Hemanth Kerr MONO # 0.4 103/ul Normal 0.3-0.8 [facility] Comment on above: Performed By: #### L ACT #### [facility] [address] [place] [address] Dr. Hemanth Kerr Monocytes/100 WBC (Bld) 6.3 % Normal 1.7-12.0 [facility] Comment on above: Performed By: #### L ACT #### [facility] [address] [address] [address] Hemanth Kerr NEUT # 4.5 103/ul Normal 1.4-6.5 [facility] Comment on above: Performed By: #### L ACT #### [facility] [address] [address] [address] Hemanth Kerr Neutrophils/100 WBC (Bld) 64.0 % Normal 43.0-75.0 [facility] Comment on above: Performed By: #### L ACT #### [facility] [address] [place] [address] Dr. Hemanth Kerr Platelet mean volume (Bld) [Entitic vol] 10.6 fL Normal 9.5-13.5 [facility] Comment on above: Performed By: #### L ACT #### [facility] [address] [place] [address] Dr. Hemanth Kerr PLT 247 103/ul Normal 150-450 [facility] Comment on above: Performed By: #### L ACT #### [facility] [address] [place] [address] Dr. Hemanth Kerr RBC 4.19 106/ul Critically low 4.20-5.40 [facility] Comment on above: Performed By: #### L ACT #### [facility] [address] [place] [address] Dr. Hemanth Kerr WBC 7.0 103/ul Normal 4.0-11.0 [facility] Comment on above: Performed By: #### L ACT #### [facility] [address] [place] [address] Dr. Hemanth Kerr Covid-19 PCR ([facility])on 07-20 SARS-CoV-2 (COVID-19) RNA ELMO+probe Ql (Unsp spec) Not detected Normal NOT DETECTED [facility] Comment on above: Result Comment: This test is not yet approved or cleared by the [place] FDA. When there are no FDA-approved or cleared tests available, and other criteria are met, FDA can make tests available under an emergency access mechanism called an Emergency Use Authorization (EUA). The EUA for this test is supported by the [place] of Health and Human Service's (HHS's) declaration [...] SARS-CoV-2. Performed By: #### C MP #### [facility] [address] [place] [address] Dr. Hemanth Kerr PREG QUANT HCGon 08-16-2022 HCG QUANT 63727 mIU/mL Normal [facility] Comment on above: Performed By: #### P REG #### [facility] [address] [place] [address] Dr. Hemanth Kerr HCG RANGE SEE BELOW Normal [facility] Comment on above: Result Comment: 5-50 0.2-1 WEEK 50-500 1-2 WEEKS 100-5,000 2-3 WEEKS 500-10,000 3-4 WEEKS 1,000-50,000 4-5 WEEKS 10,000-100,000 5-6 WEEKS 15,000-200,000 6-8 WEEKS 10,000-100,000 2-3 MONTHS Performed By: #### P REG #### [facility] [address] [place] [address] Dr. Hemanth Kerr PREG QUANT HCGon 08-14-2022 HCG QUANT 26122 mIU/mL Normal [facility] Comment on above: Performed By: #### P REG #### [facility] [address] [place] [address] Dr. Hemanth Kerr HCG RANGE SEE BELOW Normal [facility] Comment on above: Result Comment: 5-50 0.2-1 WEEK 50-500 1-2 WEEKS 100-5,000 2-3 WEEKS 500-10,000 3-4 WEEKS 1,000-50,000 4-5 WEEKS 10,000-100,000 5-6 WEEKS 15,000-200,000 6-8 WEEKS 10,000-100,000 2-3 MONTHS Performed By: #### P REG #### [facility] [address] [address] [address] Hemanth Kerr US PREG TVon 08-14-2022 [...] by: CHRISTINE SÁNCHEZ Date: 2022-08-14 16:22 Normal [facility] US PREG TVon 07-27-2022 US PREG TV [...] by: CHRISTINE SÁNCHEZ Date: 2022-07-27 17:04 Normal [facility] XR CHEST 1 Von 07-09-2022 XR CHEST 1 V PORTABLE CHEST X-RAY . INDICATION: Cough. COMPARISON: 10/11/2021 TECHNIQUE: Single AP portable chest radiograph. FINDINGS: TUBES AND LINES: None. LUNGS: Lungs are clear. PLEURA: No effusions or pneumothorax. HEART AND MEDIASTINUM: Within normal limits for portable technique. OSSEOUS STRUCTURES: No acute abnormality. IMPRESSION: No acute findings. Electronically authenticated by: FEILX WEBB Date: 2022-07-09 12:06 Normal [facility] 12[facility]12-2021 [facility] ([facility] NOE ERVIN ([id number]) 1995 F Date Time Provider Department 12/12/21 KING SUAZO During your visit today, we recorded the following information about you: Angelia Almazan 12/12/2021 11:16 AM Signed Pleases sign pending new cbc order. Thanks, Angelia Almazan MA Allergies As of Date: 12/12/2021 (No Known Allergies) Date Reviewed: 12/12/2021 Reviewed by: Jasmin Silverio APRN.[facility] - Fully Assessed Reason for Visit: Lab Orders [168] Primary Visit Diagnosis:Iron deficiency anemia, unspecified iron deficiency anemia type [D50.9] Order(s):CBC + DIFF [SQCBCDIF] Order #: [id number] FUTURE Prescriptions as of 12/12/2021 - gabapentin (NEURONTIN) 400 mg capsule Take by mouth. - Polysaccharide Iron Complex 180 mg iron cap Take by mouth. - aspirin 81 mg cap Take 81 mg by mouth once daily. - ONDANSETRON HCL ORAL Take 4 mg by mouth as needed. Problem List As Of Date: 12/12/2021 (None) Encounter Status:Closed by JASMIN SILVERIO on 12/12/21 Normal [facility] 11-10-2021 [facility] ([facility]) NOE ERVIN ([id number]) 1995 F Date Time Provider Department 11/10/21 [...] B12 is slightly low. Options would be [id number] B12 tablets 2 mg daily or start a monthly injection. Thanks, MELANY De La O RN 11/10/2021 3:40 PM Signed Informed pt of Dr Suazo's message. Pt verbalized understanding and states [facility] told her only 2 doses of the [...] by JENNYFER DE LA O on 11/10/21 [facility] CNOVSPon 11-08-2021 CNOVSP Visit (SP) Office ([place]) NOE ERVIN ([id number]) 1995 F Date Time Provider Department 11/08/21 [...] shortness of breath, and is seen at [facility] emergency [facility]. Labs revealed a hemoglobin of [...] changes, r (more content not included)... Normal [place] Comp Metabolic Panelon 11-08 Albumin [Mass/Vol] 3.6 g/dL Low 3.9-4.9 [facility] [place] Comment on above: Performed By: #### S ERFOL, IRON, B12, FERR #### [id number] [place], [place] [address] ALP [Catalytic activity/Vol] 79 U/L Normal 34-123 [place] Comment on above: Performed By: #### S ERFOL, IRON, B12, FERR #### [facility] [address] [place], [place] [address] ALT [Catalytic activity/Vol] 8 U/L Normal 7-38 [place] Comment on above: Performed By: #### S ERFOL, IRON, B12, FERR #### [facility] [address] [place], [place] [address] Anion gap [Moles/Vol] 9 mmol/L Normal 9-18 [place] Comment on above: Performed By: #### S ERFOL, IRON, B12, FERR #### [facility] [address] [place], [place] [address] AST [Catalytic activity/Vol] 13 U/L Normal 13-35 [place] Comment on above: Performed By: #### S ERFOL, IRON, B12, FERR #### [id number] [place] [address] Bilirubin [Mass/Vol] 0.2 mg/dL Normal 0.2-1.3 [facility] Comment on above: Performed By: #### S ERFOL, IRON, B12, FERR #### [place] [address] Calcium [Mass/Vol] 9.3 mg/dL Normal 8.5-10.2 [facility] [place] Comment on above: Performed By: #### S ERFOL, IRON, B12, FERR #### [place] [address] Chloride [Moles/Vol] 102 mmol/L Normal 97-105 [facility] Comment on above: Performed By: #### S ERFOL, IRON, B12, FERR #### [place] [address] CO2 [Moles/Vol] 23 mmol/L Normal 22-30 [place] Comment on above: Performed By: #### S ERFOL, IRON, B12, FERR #### [address] [place] [address] Creatinine [Mass/Vol] 0.55 mg/dL Low 0.58-0.96 [place] Comment on above: Performed By: #### S ERFOL, IRON, B12, FERR #### [address] [place] [address] eGFR- Amer. >60 Normal [facility] [place] Comment on above: Performed By: #### S ERFOL, IRON, B12, FERR #### [address] [place] [address] eGFR-All Other Races >60 Normal [facility] Comment on above: Result Comment: eGFR [...] #### S ERFOL, IRON, B12, FERR #### [facility] [address] [place], [place] [address] Glucose [Mass/Vol] 96 mg/dL Normal 74-99 [facility] [place] Comment on above: Result Comment: The [place] Diabetes [employer] (ADA) provides guidance for cutoff [...] Standards of Medical Care in Diabetes 2016, [place] [employer]. Diabetes Care. 2016.39(Suppl 1). Performed By: #### S ERFOL, IRON, B12, FERR #### [facility] [address] [place], [place] [address] Potassium [Moles/Vol] 3.3 mmol/L Low 3.7-5.1 [place] Comment on above: Performed By: #### S ERFOL, IRON, B12, FERR #### [address] [place], [place] [address] Protein [Mass/Vol] 6.3 g/dL Normal 6.3-8.0 [facility] [place] Comment on above: Performed By: #### S ERFOL, IRON, B12, FERR #### [address] [address] Sodium [Moles/Vol] 134 mmol/L Low 136-144 [facility] [place] Comment on above: Performed By: #### S ERFOL, IRON, B12, FERR #### [address] [place] [address] Urea nitrogen [Mass/Vol] 4 mg/dL Low 7-21 [place] Comment on above: Performed By: #### S ERFOL, IRON, B12, FERR #### [place] [id number] Ferritinon 11-08-2021 Ferritin [Mass/Vol] 203.0 ng/mL Normal 14.7-205.1 [facility] Comment on above: Performed By: #### S ERFOL, IRON, B12, FERR #### [address] [address] Folate, Serumon 11-08-2021 Folate [Mass/Vol] 8.5 ng/mL Normal >4.7 [facility] Comment on above: Performed By: #### S ERFOL, IRON, B12, FERR #### [address] [address] Iron and TIBCon 11-08-2021 Iron [Mass/Vol] 93 ug/dL Normal 41-186 [place] Comment on above: Performed By: #### S ERFOL, IRON, B12, FERR #### [address] [address] TIBC 407 ug/dL High 232-386 [place] Comment on above: Performed By: #### S ERFOL, IRON, B12, FERR #### [facility] [address] [place] [id number] Transferrin Saturatn 23 % Normal 15-57 [facility] [place] Comment on above: Performed By: #### S ERFOL, IRON, B12, FERR #### [facility] [employer] [address] [place], [place] [address] Remote CBCDIF (for [facility] use o nly)on 11-08-2021 Abs Baso <0.03 Normal <0.11 [place] Abs Rich 0.57 k/uL Normal <0.87 [place] Abs Neut 4.67 k/uL Normal 1.45-7.50 [place] Absolute nRBC <0.01 Normal <0.01 [place] Basophils/100 WBC (Bld) 0.3 % Normal [place] DTYPE Auto Diff Normal [place] Eosinophils (Bld) [#/Vol] 0.05 10*3/uL Normal <0.46 [place] Eosinophils/100 WBC (Bld) 0.8 % Normal [place] Erythrocyte distribution width (RBC) [Ratio] 29.9 % High 11.5-15.0 [place] Hematocrit (Bld) [Volume fraction] 32.6 % Low 36.0-46.0 [place] Hemoglobin (Bld) [Mass/Vol] 10.1 g/dL Low 11.5-15.5 [place] Lymphocytes (Bld) [#/Vol] 1.25 10*3/uL Normal 1.00-4.00 [place] Lymphocytes/100 WBC (Bld) 19.1 % Normal [place] MCH 25.1 pG Low 26.0-34.0 [place] MCHC (RBC) [Mass/Vol] 31.0 g/dL Normal 30.5-36.0 [place] MCV (RBC) [Entitic vol] 81.1 fL Normal 80.0-100.0 [place] Monocytes/100 WBC (Bld) 8.7 % Normal [place] Neutrophils/100 WBC (Bld) 71.1 % Normal [place] NRBCs 0.0 /100 WBC Normal 0 [place] Platelet mean volume (Bld) [Entitic vol] 10.3 fL Normal 9.0-12.7 [place] Platelets (Bld) [#/Vol] 223 10*3/uL Normal 150-400 [place] Comment on above: Result Comment: Resu lt checked and verified Sample checked for a clot. RBC (Bld) [#/Vol] 4.02 10*6/uL Normal 3.90-5.20 [facility] WBC (Bld) [#/Vol] 6.56 10*3/uL Normal 3.70-11.00 [facility] Reticulocyteon 11-08-2021 Abs Retic 0.140 M/uL High 0.0180-0.1000 [place] Comment on above: Performed By: #### S ERFOL, IRON, B12, FERR #### [address] [place] [address] Retic% 3.5 % High 0.4-2.0 [place] Comment on above: Performed By: #### S ERFOL, IRON, B12, FERR #### [id number] [place] [id number] Vitamin B12on 11-08-2021 Cobalamin (Vitamin B12) [Mass/Vol] 218 pg/mL Low 232-1245 [place] Comment on above: Performed By: #### S ERFOL, IRON, B12, FERR #### [address] [place] [address] HCV RNA,Quant,PCRon 04-27-20 20 HCV RNA,Quant,PCR Specimen [...] genotypes 1-6. Report Status FINAL 04/27/2020 Normal [facility] Comment on above: Performed By: #### H IVCMB, PHEP #### [address] [address] Health Data Analyst: Dom Fowler MD #### CP #### [facility] [address] [place] [address] Dr. [phone] Health Data Analyst: Shakeel Graham MD [facility] 04-26-2020 Erythrocyte distribution width (RBC) [Ratio] 14.7 % High 11.8-14.4 [facility] Comment on above: Performed By: #### H IVCMB, PHEP #### [address] [address] Health Data Analyst: Dom Fowler MD #### CP #### [facility] [address] [place] [address] Dr. [phone] Health Data Analyst: Shakeel Graham MD Hematocrit (Bld) [Volume fraction] 36.0 % Low 36.3-47.1 [facility] Comment on above: Performed By: #### H IVCMB, PHEP #### [address] [address] Health Data Analyst: Dom Fowler MD #### CP #### [facility] [address] [place] [address] [place] [place] [phone] Health Data Analyst: Shakeel Graham MD Hemoglobin (Bld) [Mass/Vol] 10.9 g/dL Low 11.9-15.1 [facility] Comment on above: Performed By: #### H IVCMB, PHEP #### [address] [address] Health Data Analyst: Dom Fowler MD #### CP #### [facility] [address] [place] [address] [place], [place] [id number] Health Data Analyst: Shakeel Graham MD MCH (RBC) [Entitic mass] 26.2 pg Normal 25.2-33.5 [facility] Comment on above: Performed By: #### H IVCMB, PHEP #### [address] [address] Health Data Analyst: Dom Fowler MD #### CP #### [facility] [address] [place] [address] Dr. [phone] Health Data Analyst: Shakeel Graham MD MCHC (RBC) [Mass/Vol] 30.3 g/dL Normal 28.4-34.8 [facility] Comment on above: Performed By: #### H IVCMB, PHEP #### [address] [address] Health Data Analyst: oDm Fowler MD #### CP #### [address] [place] [phone] Health Data Analyst: Shakeel Graham MD MCV (RBC) [Entitic vol] 86.5 fL Normal 82.6-102.9 [facility] Comment on above: Performed By: #### H IVCMB, PHEP #### [address] [address] Health Data Analyst: Dom Fowler MD #### CP #### [address] [place] [phone] Health Data Analyst: Shakeel Graham MD NRBC Automated 0.0 per 100 WBC Normal 0.0 [facility] Comment on above: Performed By: #### H IVCMB, PHEP #### [address] [address] Health Data Analyst: Dom Fowler MD #### CP #### [address] [place], [place] [phone] Health Data Analyst: Shakeel Graham MD Platelet mean volume (Bld) [Entitic vol] 10.8 fL Normal 8.1-13.5 [facility] Comment on above: Performed By: #### H IVCMB, PHEP #### [address] [address] Health Data Analyst: Dom Fowler MD #### CP #### [address] [place], [place] [phone] Health Data Analyst: Shakeel Graham MD Platelets (Bld) [#/Vol] 328 10*3/uL Normal 138-453 [facility] Comment on above: Performed By: #### H IVCMB, PHEP #### [address] [address] Health Data Analyst: Dom Fowler MD #### CP #### [address] [place], [place] [id number] Health Data Analyst: Shakeel Graham MD RBC (Bld) [#/Vol] 4.16 10*6/uL Normal 3.95-5.11 [facility] Comment on above: Performed By: #### H IVCMB, PHEP #### [address] [address] Health Data Analyst: Dom Fowler MD #### CP #### [address] [place], [place] [address] Health Data Analyst: Shakeel Graham MD WBC (Bld) [#/Vol] 5.7 10*3/uL Normal 3.5-11.3 [facility] Comment on above: Performed By: #### H IVCMB, PHEP #### [address] [address] Health Data Analyst: Dom Fowler MD #### CP #### [address] [place] [address] Health Data Analyst: Shakeel Graham MD Erythrocyte distribution width (RBC) [Ratio] 14.7 % High 11.8 - 14.4 % [place], [place] Hematocrit (Bld) [Volume fraction] 36.0 % Low 36.3 - 47.1 % [place] Hemoglobin (Bld) [Mass/Vol] 10.9 g/dL Low 11.9 - 15.1 g/dL [place] Interpretation and review of laboratory results Abnormal [place] MCH (RBC) [Entitic mass] 26.2 pg 25.2 - 33.5 pg [place] MCHC (RBC) [Mass/Vol] 30.3 g/dL 28.4 - 34.8 g/dL [place] MCV (RBC) [Entitic vol] 86.5 fL 82.6 - 102.9 fL [place] Platelet mean volume (Bld) [Entitic vol] 10.8 fL 8.1 - 13.5 fL [place], [place] Platelets (Bld) [#/Vol] 328 10*3/uL [place] RBC (Bld) [#/Vol] 4.16 10*6/uL 3.95 - 5.1 1 m/uL [place] WBC (Bld) [#/Vol] 0.0 10*3/uL 0.0 per 100 WBC [place], [place] WBC (Bld) [#/Vol] 5.7 10*3/uL [place], [place] Comp Metabolic Profon 2019 Bilirubin Ql (U) <0.10 Low 0.3-1.2 [facility] Comment on above: Performed By: #### H IVCMB, PHEP #### [facility] [employer] [address] [place] [address] Health Data Analyst: Dom Fowler MD #### CP #### [facility] [address] [place] [address] Health Data Analyst: Shakeel Graham MD (cont.) Normal [facility] Comment on above: Result Comment: Aver age GFR for 20-29 years old: 116 mL/min/1.73sq m Chronic Kidney Disease: <60 mL/min/1.73sq m Kidney failure: <15 mL/min/1.73sq m eGFR calculated using average adult body mass. Additional eGFR calculator available at: http://www.[employer]/multiple_crcl_2011.htm Performed By: #### H IVCMB, PHEP #### [facility] [address] [place] [address] Health Data Analyst: Dom Fowler MD #### CP #### [facility] [address] [place] [address] Health Data Analyst: Shakeel Graham MD Albumin [Mass/Vol] 3.4 g/dL Low 3.5-5.2 [facility] Comment on above: Performed By: #### H IVCMB, PHEP #### [address] [place] [address] Health Data Analyst: Dom Fowler MD #### CP #### [facility] [address] [place] [address] Health Data Analyst: Shakeel Graham MD Albumin/Globulin [Mass ratio] 1.5 {ratio} Normal 1.0-2.5 [facility] Comment on above: Performed By: #### H IVCMB, PHEP #### [address] [place] [address] Health Data Analyst: Dom Fowler MD #### CP #### [facility] [address] [place] [address] Health Data Analyst: Shakeel Graham MD Alkaline Phos 40 U/L Normal 35-104 [facility] Comment on above: Performed By: #### H IVCMB, PHEP #### [address] [address] Health Data Analyst: Dom Fowler MD #### CP #### [facility] [address] [place], [place] [id number] Health Data Analyst: Shakeel Graham MD ALT [Catalytic activity/Vol] 12 U/L Normal 5-33 [facility] Comment on above: Performed By: #### H IVCMB, PHEP #### [facility] [address] [place] [address] Health Data Analyst: Dom Fowler MD #### CP #### [facility] [address] [place], [place] 940[address]83 Health Data Analyst: Shakeel Graham MD Anion gap [Moles/Vol] 9 mmol/L Normal 9-17 [facility] Comment on above: Performed By: #### H IVCMB, PHEP #### [facility] [address] [place] [address] Health Data Analyst: Dom Fowler MD #### CP #### [facility] [address] [place], [place] 6062683 Health Data Analyst: Shakeel Graham MD AST [Catalytic activity/Vol] 12 U/L Normal <32 [facility] Comment on above: Performed By: #### H IVCMB, PHEP #### [facility] [address] [place] [address] Health Data Analyst: Dom Fowler MD #### CP #### [facility] [address] [place], [place] 3602483 Health Data Analyst: Shakeel Graham MD BUN/CRE Ratio 26 High 9-20 [facility] Comment on above: Performed By: #### H IVCMB, PHEP #### [facility] [address] [place] [address] Health Data Analyst: Dom Fowler MD #### CP #### [facility] [address] [place], [place] 7220183 Health Data Analyst: Shakeel Graham MD Calcium [Mass/Vol] 9.3 mg/dL Normal 8.6-10.4 [facility] Comment on above: Performed By: #### H IVCMB, PHEP #### [address] [address] Health Data Analyst: Dom Fowler MD #### CP #### [facility] [address] [place] [address] [address] [place] [id number] Health Data Analyst: Shakeel Graham MD Chloride [Moles/Vol] 109 mmol/L High 98-107 [facility] Comment on above: Performed By: #### H IVCMB, PHEP #### [address] [address] Health Data Analyst: Dom Fowler MD #### CP #### [facility] [address] [place] [address] [place] [phone] Health Data Analyst: Shakeel Graham MD CO2 [Moles/Vol] 26 mmol/L Normal 20-31 [facility] Comment on above: Performed By: #### H IVCMB, PHEP #### [address] [address] Health Data Analyst: Dom Fowler MD #### CP #### [address] [place] [phone] Health Data Analyst: Shakeel Graham MD Creatinine [Mass/Vol] 0.57 mg/dL Normal 0.50-0.90 [facility] Comment on above: Performed By: #### H IVCMB, PHEP #### [address] [address] Health Data Analyst: Dom Fowler MD #### CP #### [facility] [address] [place] [address] [place], [place] 5851683 Health Data Analyst: Shakeel Graham MD GFR, Amer >60 Normal >60 [facility] Comment on above: Performed By: #### H IVCMB, PHEP #### [facility] [address] [place] [address] Health Data Analyst: Dom Fowler MD #### CP #### [facility] [address] [place], [place] 4888483 Health Data Analyst: Shakeel Graham MD GFR,non Amer >60 Normal >60 [facility] Comment on above: Performed By: #### H IVCMB, PHEP #### [address] [address] Health Data Analyst: Dom Fowler MD #### CP #### [facility] [address] [place] [address] Dr[address] [place], [place] 1195883 Health Data Analyst: Shakeel Graham MD Glucose [Mass/Vol] 92 mg/dL Normal 70-99 [facility] Comment on above: Performed By: #### H IVCMB, PHEP #### [address] [address] Health Data Analyst: Dom Fowler MD #### CP #### [facility] [address] [place] [address] [place] [address] Health Data Analyst: Shakeel Graham MD Potassium [Moles/Vol] 3.8 mmol/L Normal 3.7-5.3 [facility] Comment on above: Performed By: #### H IVCMB, PHEP #### [facility] [address] [place] [address] Health Data Analyst: Dom Fowler MD #### CP #### [facility] [address] [place], [place] 0615383 Health Data Analyst: Shakeel Graham MD Protein [Mass/Vol] 5.7 g/dL Low 6.4-8.3 [facility] Comment on above: Performed By: #### H IVCMB, PHEP #### [address] [address] Health Data Analyst: Dom Fowler MD #### CP #### [facility] [address] [place] [address] Health Data Analyst: Shakeel Graham MD Sodium [Moles/Vol] 144 mmol/L Normal 135-144 [facility] Comment on above: Performed By: #### H IVCMB, PHEP #### [address] [place] [address] Health Data Analyst: Dom Fowler MD #### CP #### [facility] [address] [place] [address] Health Data Analyst: Shakeel Graham MD Staging: Normal [facility] Comment on above: Result Comment: Stag e 1: Some kidney damage normal GFR Stage 2: Mild kidney damage GFR 60-89 Stage 3: Moderate kidney damage GFR 30-59 Stage 4: Severe kidney damage GFR 15-29 Stage 5: Severe kidney damage GFR <15 ESRD - chronic treatment by dialysis or transplant Performed By: #### H IVCMB, PHEP #### [facility] [address] [place] [address] Health Data Analyst: Dom Fowler MD #### CP #### [address] [place] [address] Health Data Analyst: Shakeel Graham MD Urea nitrogen [Mass/Vol] 15 mg/dL Normal 6-20 [facility] Comment on above: Performed By: #### H IVCMB, PHEP #### [facility] [address] [place] [address] Health Data Analyst: Dom Fowler MD #### CP #### [address] [place] [address] Health Data Analyst: Shakeel Graham MD [facility] 04-26-2020 Albumin [Mass/Vol] 3.4 g/dL Low 3.5 - 5.2 g/dL [place] Albumin/Globulin [Mass ratio] 1.5 {ratio} [place] ALP [Catalytic activity/Vol] 40 U/L 35 - 104 U/L [place] ALT [Catalytic activity/Vol] 12 U/L 5 - 33 U/L [place] Anion gap [Moles/Vol] 9 mmol/L 9 - 17 mmol/L [place] AST [Catalytic activity/Vol] 12 U/L <32 [place] Bilirubin Ql (U) <0.10 Low 0.3 - 1.2 mg/dL [place], [place] Bun/Cre Ratio 26 High [place] Calcium [Mass/Vol] 9.3 mg/dL 8.6 - 10. 4 mg/dL [place] Chloride [Moles/Vol] 109 mmol/L High 98 - 107 mmol/L [place] CO2 [Moles/Vol] 26 mmol/L 20 - 31 mmol/L [place] Creatinine [Mass/Vol] 0.57 mg/dL 0.5 - 0.9 mg/dL [place] GFR >60 >60 mL/min [place], [place] GFR Non- >60 >60 mL/min [place] Glucose [Mass/Vol] 92 mg/dL 70 - 99 mg/dL [place], [place] Interpretation and review of laboratory results Abnormal [place] Potassium [Moles/Vol] 3.8 mmol/L 3.7 - 5.3 mmol/L [place] Protein [Mass/Vol] 5.7 g/dL Low 6.4 - 8.3 g/dL [place], [place] Sodium [Moles/Vol] 144 mmol/L 135 - 144 mmol/L [place] Urea nitrogen [Mass/Vol] 15 mg/dL 6 - 20 mg/dL [place] HCG Qualitative, Serumon hCG Qual Negative NEGATIVE [place] Comment on above: Specimens with hCG l evels near the threshold of the test (25 mIU/mL) may give a negative or indeterminate result. In such cases, another test should be performed with a new specimen in 48-72 hours. If early is suspected clinically in this setting, correlation with quantitative serum b-hCG level is suggested. [facility] has confirmed the use of plasma for this test. This has not been cleared or approved by the U.S. Food and Drug Administration. The FDA has determined that such clearance is not necessary. HCG Screen, Bloodon 04-26-20 20 HCG Qn Negative Normal NEG [facility] Comment on above: Result Comment: Spec imens with hCG levels near the threshold of the test (25 mIU/mL) may give a negative or indeterminate result. In such cases, another test should be performed with a new specimen in 48-72 hours. If early is suspected clinically in this setting, correlation with quantitative serum b-hCG level is suggested. [email or web address] has confirmed the use of plasma for this test. This has not been cleared or approved by the U.S. Food and Drug Administration. The FDA has determined that such clearance is not necessary. Performed By: #### H IVCMB, PHEP #### [facility] [address] [place], [place] [id number] Health Data Analyst: Dom Fowler MD #### CP #### [facility] [address] [place] [address] [place] [address] Health Data Analyst: Shakeel Graham MD HIV Ag/Abon 04-26-2020 HIV Ag/Ab NONREACTIVE Normal NR [facility] Comment on above: Result Comment: No l aboratory evidence of HIV infection. If acute HIV infection is suspected, consider testing for HIV-1 RNA. Performed By: #### H IVCMB, PHEP #### [facility] [address] [place] [address] Health Data Analyst: Dom Fowler MD #### CP #### [facility] [address] [place] [address] Health Data Analyst: Shakeel Graham MD HIV Screenon 04-26-2020 HIV Ag/Ab NONREACTIVE NONREACTIVE [facility] [place] Comment on above: No laboratory eviden ce of HIV infection. If acute HIV infection is suspected, consider testing for HIV-1 RNA. Hepatitis Acute [facility] 04-26 Hep A Ab,IgM NONREACTIVE Normal NR [facility] Comment on above: Performed By: #### H IVCMB, PHEP #### [facility] [address] [place] [address] Health Data Analyst: Dom Fowler MD #### CP #### [facility] [address] [place] [address] [place] [address] Health Data Analyst: Shakeel Graham MD Hep B Core Ab,IgM NONREACTIVE Normal [facility] Comment on above: Performed By: #### H IVCMB, PHEP #### [facility] [address] [place] [address] Health Data Analyst: Dom Fowler MD #### CP #### [address] [place] [address] Health Data Analyst: Shakeel Graham MD Hep B Surf Ag NONREACTIVE Normal [facility] Comment on above: Performed By: #### H IVCMB, PHEP #### [address] [address] Health Data Analyst: Dom Fowler MD #### CP #### [facility] [address] [place] [address] [place] [address] Health Data Analyst: Shakeel Graham MD Hep C Ab REACTIVE Abnormal [facility] Comment on above: Result Comment: The [...] Performed By: #### H IVCMB, PHEP #### [facility] [address] [place] [address] Health Data Analyst: Dom Fowler MD #### CP #### [facility] [address] [place] [address] Health Data Analyst: Shakeel Graham MD Hepatitis Panel, Acuteon HAV IgM IA Qn (S) NONREACTIVE NONREACTIVE [place] Hep B Core Ab, IgM NONREACTIVE NONREACTIVE [place] Hepatitis B Surface Ag NONREACTIVE NONREACTIVE [place] Hepatitis C Ab REACTIVE Abnormal NONREACTIVE [place] Comment on above: The hepatitis C [...] Interpretation and review of laboratory results Abnormal [place] Metabolic Panelon 04-26-2020 GFR/1.73 sq M predicted among non-blacks MDRD (S/P/Bld) [Vol rate/Area] [place] Comment on above: Stage 1: Some [...] body mass. Additional eGFR calculator available at: http://www.Desigual.Yuenimei/multiple_crcl_2012.htm Microscopic Urinalysison Amorphous, UA NOT REPORTED None [place] Bacteria, UA NOT REPORTED None [place], [place] Casts UA NOT REPORTED /LPF [place] Crystals, UA 5 TO 10 Abnormal None /HPF [place] Crystals, UA CALCIUM OXALATE Abnormal None /HPF [place] Epithelial Cells UA 0 TO 2 [place] Interpretation and review of laboratory results Abnormal [place] Mucus, UA TRACE Abnormal None [place] Other Observations UA NOT REPORTED NOT REQ. [place] RBC (U) [#/Vol] None [facility] [place] Renal Epithelial, UA NOT REPORTED 0 /HPF [place] Trichomonas, UA NOT REPORTED None [facility] [place] WBC, UA 0 TO 2 [place] Yeast, UA NOT REPORTED None [place], [place] - [place] UA w/Reflex Cultureon 2019 Acetoacetic Acid,Ur Negative Normal NEG [facility] Comment on above: Performed By: #### H IVCMB, PHEP #### [address] [address] Health Data Analyst: Dom Fowler MD #### CP #### [address] [place] [phone] Health Data Analyst: Shakeel Graham MD Bilirubin, SemiQt,Ur Negative Normal [facility] Comment on above: Performed By: #### H IVCMB, PHEP #### [address] [address] Health Data Analyst: Dom Fowler MD #### CP #### [address] [place] [phone] Health Data Analyst: Shakeel Graham MD Color (U) YELLOW Normal [facility] Comment on above: Performed By: #### H IVCMB, PHEP #### [address] [address] Health Data Analyst: Dom Fowler MD #### CP #### [facility] [address] [place] [address] [place] [address] Health Data Analyst: Shakeel Graham MD Glucose Ql (U) Negative Normal NEG [facility] Comment on above: Performed By: #### H IVCMB, PHEP #### [address] [address] Health Data Analyst: Dom oFwler MD #### CP #### [facility] [address] [place] [address] Dr. [place], [place] 6682083 Health Data Analyst: Shakeel Graham MD Hemoglobin, Ur Negative Normal NEG [facility] Comment on above: Performed By: #### H IVCMB, PHEP #### [address] [address] Health Data Analyst: Dom Fowler MD #### CP #### [address] [place] [address] Health Data Analyst: Shakeel Graham MD Leukocyte esterase Test strip Ql (U) Negative Normal NEG [facility] Comment on above: Performed By: #### H IVCMB, PHEP #### [address] [address] Health Data Analyst: Dom Fowler MD #### CP #### [address] [place] [address] Health Data Analyst: Shakeel Graham MD Nitrite,Ur Negative Normal NEG [facility] Comment on above: Performed By: #### H IVCMB, PHEP #### [address] [address] Health Data Analyst: Dom Fowler MD #### CP #### [address] [place] [address] Health Data Analyst: Shakeel Graham MD pH (U) 6.5 [pH] Normal 5.0-9.0 [facility] Comment on above: Performed By: #### H IVCMB, PHEP #### [address] [address] Health Data Analyst: Dom Fowler MD #### CP #### [facility] [address] [place] [address] Health Data Analyst: Shakeel Graham MD Protein Ql (U) Negative Normal NEG [facility] Comment on above: Performed By: #### H IVCMB, PHEP #### [facility] [address] [place] [address] Health Data Analyst: Dom Fowler MD #### CP #### [address] [place] [address] Health Data Analyst: Shakeel Graham MD Specific gravity (U) [Rel density] 1.025 High 1.010-1.020 [facility] Comment on above: Performed By: #### H IVCMB, PHEP #### [facility] [address] [place] [address] Health Data Analyst: Dom Fowler MD #### CP #### [address] [place] [address] Health Data Analyst: Shakeel Graham MD Turbidity CLEAR Normal CLEAR [facility] Comment on above: Performed By: #### H IVCMB, PHEP #### [address] [address] Health Data Analyst: Dom Fowler MD #### CP #### [address] [place] [address] Health Data Analyst: Shakeel Graham MD Urobilinogen,Ur Normal Normal NORM [facility] Comment on above: Performed By: #### H IVCMB, PHEP #### [address] [address] Health Data Analyst: Dom Fowler MD #### CP #### [address] [place] [address] Health Data Analyst: Shakeel Graham MD Comment NOT REPORTED Normal [facility] Comment on above: Performed By: #### H IVCMB, PHEP #### [facility] [address] [place] [address] Health Data Analyst: Dom Fowler MD #### CP #### [address] [place] [address] Health Data Analyst: Shakeel Graham MD Urinalysis Reflex to Culture on 04-26-2020 Bilirubin Urine Negative NEGATIVE [facility], [place] Color, UA YELLOW YELLOW [facility], [place] Glucose, Ur Negative NEGATIVE [facility] [place] Interpretation and review of laboratory results Abnormal [place] Ketones Ql (U) Negative NEGATIVE [facility], [place] Leukocyte esterase Test strip Ql (U) Negative NEGATIVE [facility] Nitrite, Urine Negative NEGATIVE [facility], [place] pH, UA 6.5 [place] Protein (U) [Mass/Vol] Negative NEGATIVE [facility], [place] Specific [place], UA 1.025 High [facility], [place] Turbidity UA CLEAR CLEAR [place] Urinalysis Comments NOT REPORTED [facility], [place] Urine Hgb Negative NEGATIVE [facility] Urobilinogen, Urine Normal Normal [place] Urinalysis,Microon 0 ----- Normal [facility] Comment on above: Performed By: #### H IVCMB, PHEP #### [address] [place] [address] Health Data Analyst: Dom Fowler MD #### CP #### [address] [place] [address] Health Data Analyst: Shakeel Graham MD Crystals LM Nom (Urine sed) CALCIUM OXALATE Abnormal NONE [facility] Comment on above: Result Comment: 5 TO 10 Performed By: #### H IVCMB, PHEP #### [facility] [address] [place] [address] Health Data Analyst: Dom Fowler MD #### CP #### [facility] [address] [address] Health Data Analyst: Shakeel Graham MD Epithelial cells LM.HPF (Urine sed) [#/Area] 0 TO 2 Normal 0-25 [facility] Comment on above: Performed By: #### H IVCMB, PHEP #### [address] [address] Health Data Analyst: Dom Fowler MD #### CP #### [address] [place], [place] 7[address]8583 Health Data Analyst: Shakeel Graham MD Mucus Strands TRACE Abnormal [facility] Comment on above: Performed By: #### H IVCMB, PHEP #### [address] [address] Health Data Analyst: Dom Fowler MD #### CP #### [address] [place] [phone] Health Data Analyst: Shakeel Graham MD RBC (U) [#/Vol] None Normal 0-2 [facility] Comment on above: Performed By: #### H IVCMB, PHEP #### [address] [address] Health Data Analyst: Dom Fowler MD #### CP #### [address] [place] [address] Health Data Analyst: Shakeel Graham MD WBC (U) [#/Vol] 0 TO 2 Normal 0-5 [facility] Comment on above: Performed By: #### H IVCMB, PHEP #### [address] [address] Health Data Analyst: Dom Fowler MD #### CP #### [address] [place], [place] 3870283 Health Data Analyst: Shakeel Graham MD Amorphous sediment LM Ql (Urine sed) NOT REPORTED Normal [facility] Comment on above: Performed By: #### H IVCMB, PHEP #### [address] [address] Health Data Analyst: Dom Fowler MD #### CP #### [facility] [address] [place] [address] Health Data Analyst: Shakeel Graham MD Bacteria LM.HPF (Urine sed) [#/Area] NOT REPORTED Normal NONE [facility] Comment on above: Performed By: #### H IVCMB, PHEP #### [address] [address] Health Data Analyst: Dom Fowler MD #### CP #### [address] [place] [address] Health Data Analyst: Shakeel Graham MD Casts LM.LPF (Urine sed) [#/Area] NOT REPORTED Normal [facility] Comment on above: Performed By: #### H IVCMB, PHEP #### [address] [address] Health Data Analyst: Dom Fowler MD #### CP #### [address] [place] [address] Health Data Analyst: Shakeel Graham MD Epithelial, Renal NOT REPORTED Normal 0 [facility] Comment on above: Performed By: #### H IVCMB, PHEP #### [address] [address] Health Data Analyst: Dom Fowler MD #### CP #### [address] [place] [address] Health Data Analyst: Shakeel Graham MD Other Observations NOT REPORTED Normal NREQ [facility] Comment on above: Performed By: #### H IVCMB, PHEP #### [address] [address] Health Data Analyst: Dom Fowler MD #### CP #### [facility] [address] [place], [place] [address]387183 Health Data Analyst: Shakeel Graham MD Trichomonas NOT REPORTED Normal NONE [facility] Comment on above: Performed By: #### H IVCMB, PHEP #### [facility] [address] [place], [place] 8673408 Health Data Analyst: Dom Fowler MD #### CP #### [facility] [address] [place] 9300683 Health Data Analyst: Shakeel Graham MD Yeast LM Ql (Urine sed) NOT REPORTED Normal NONE [facility] Comment on above: Performed By: #### H IVCMB, PHEP #### [facility] [address] [place], [place] [address]32[address] Health Data Analyst: Dom Fowler MD #### CP #### [facility] [address] [place] [address] Dr. [place] 869[address]83 Health Data Analyst: Shakeel Graham MD ED Clinical Summaryon 2019 ED Clinical Summary [address] [address] ED Clinical Summary Person Information Name: Kathryn Ervin/[facility] Age: 25 Years : 1995 Sex: Female PCP: Marital Status: Single Phone: Race: White Ethnicity: Not or Language: Hungarian Visit Reason: Drug withdrawal; Drug withdrawal Acuity: 3 Enc Type: Emergency Med Service: Emergency Medicine Arrival: 03/16/2020 20:10:45 Discharge: 03/17/2020 02:12:00 LOS: 000 06:02 Checkin: 03/16/2020 20:10:45 Checkout: 03/17/2020 02:12:00 Dispo Type: Home or Self Care Address: [address] [place] [id number] Provider Notes: Diagnosis: 1:Affective disorder; 2:Drug usage [...] range between ( 27.2 and 40.8 ) Rich Auto: 11.4 % -- Normal range between [...] range between ( 36.0 and 46.0 ) Rich Absolute: 1.5 x10 MCH: 27.4 pg -- [...] 03/16/2020 20:20:41 Follow up: With: Address: When: [facility] In [place], [place] Within 1 to 2 days Discharge Orders: Discharge Patient 03/17/20 1:45:00 EDT, Discharge to Home, Self Patient Education Information: Understanding Methamphetamine Abuse and Addiction; Treating Affective (Mood) Disorders [facility] Poison Help line: . [facility] Mental Health Hotline: [place] Tobacco Quit Line: [place], [place]) [address]: [phone] [place], [place]) [address]: [phone] [facility] [address], [place]: [phone] Normal [facility] hCG Quantitativeon 0 Beta hCG Qnt 1.7 mIU/mL Normal 0.0-4.9 [facility] Comment on above: Result Comment: 0.0 - 4.9 Negative for 5.0 - 25.0 Indeterminant for : Suggest repeat in 72 hours. >25.0 Positive for Performed By: #### H CG ####[place] [address] .UA Microscp Aon 03-16-2020 UA Hyline Cast Qual >20 Abnormal Negative [facility] Comment on above: Performed By: #### C [id number] ####[place] [address] UA Mucus Present Abnormal Absent [facility] Comment on above: Performed By: #### C [id number] ####[place] [id number] UA RBC Quant 12 /HPF High 0-5 [facility] Comment on above: Performed By: #### C [id number] ####[address] [address] UA Squepi Cells Quant 6 /HPF Normal 0-29 [facility] Comment on above: Performed By: #### C [id number] ####[address] [address] UA WBC Quant 7 /HPF High 0-5 [facility] Comment on above: Performed By: #### C [id number] ####[facility] [place] [address] .eGFRon 03-16-2020 eGFR AA 52 mL/min/1.73m? Low >=60 [facility] [place] Comment on above: Result Comment: Resu lt = 0-14.9 mL/min/1.73 m2 Kidney failure or Dialysis Result = 15-29 mL/min/1.73 m2 Severe decrease in GFR Result = 30-59 mL/min/1.73 m2 Moderate decrease in GFR Result >= 60 mL/min/1.73 m2 Normal or increased GFR Performed By: #### E GFR #### [address] [address] eGFR Non-AA 43 mL/min/1.73m? Low >=60 [facility] Comment on above: Result Comment: Resu [...] dosing. Performed By: #### E GFR #### [address] [address] CBC w/ Diffon 03-16-2020 Erythrocyte distribution width (RBC) [Ratio] 15.9 % High 11.6-14.8 [facility] Comment on above: Performed By: #### C BC #### [address] [address] Hematocrit (Bld) [Volume fraction] 37.5 % Normal 36.0-46.0 [facility] Comment on above: Performed By: #### C BC #### [address] [address] Hemoglobin (Bld) [Mass/Vol] 12.5 g/dL Normal 12.0-16.0 [facility] Comment on above: Performed By: #### C BC #### [address] [address] MCH (RBC) [Entitic mass] 27.4 pg Normal 27.0-35.0 [facility] Comment on above: Performed By: #### C BC #### [address] [address] MCHC (RBC) [Mass/Vol] 33.2 % Normal 31.0-37.0 [facility] Comment on above: Performed By: #### C BC #### [address] [address] MCV (RBC) [Entitic vol] 82.4 fL Normal 80.0-100.0 [facility] Comment on above: Performed By: #### C BC #### [address] [address] Platelet mean volume (Bld) [Entitic vol] 9.4 fL Normal 6.7-10.6 [facility] Comment on above: Performed By: #### C BC #### [address] [address] Platelets (Bld) [#/Vol] 307 x10*3/mcL Normal 150-350 [facility] Comment on above: Performed By: #### C BC #### [address] [address] RBC (Bld) [#/Vol] 4.55 x10*6/mcL Normal 3.80-5.20 [facility] Comment on above: Performed By: #### C BC #### [address] [address] WBC (Bld) [#/Vol] 12.9 x10*3/mcL High 4.5-11.0 [facility] Comment on above: Performed By: #### C BC #### [address] [address] CMPon 03-16-2020 Albumin [Mass/Vol] 5.2 g/dL High 3.2-4.9 [facility] Comment on above: Result Comment: [facility] Laboratory updated the methodology used for albumin testing on 04/24/18. Albumin measurement was performed using a bromcresol purple dye-binding assay. Performed By: #### C OMP #### [address] [address] Albumin/Globulin [Mass ratio] 1.5 {ratio} Normal 1.1-2.2 [facility] Comment on above: Performed By: #### C OMP #### [address] [address] Alk Phos 47 IU/L Normal 32-91 [facility] Comment on above: Performed By: #### C OMP #### [address] [address] ALT [Catalytic activity/Vol] 19 U/L Normal 14-54 [facility] Comment on above: Performed By: #### C OMP #### [address] [address] Anion gap [Moles/Vol] 22 mmol/L High 7-17 [facility] Comment on above: Performed By: #### C OMP #### [address] [address] AST [Catalytic activity/Vol] 31 U/L Normal 15-41 [facility] Comment on above: Performed By: #### C OMP #### [address] [place] [address] Bili Total 1.4 mg/dL High 0.3-1.2 [facility] Comment on above: Performed By: #### C OMP #### [address] [address] Calcium [Mass/Vol] 10.2 mg/dL Normal 8.5-10.3 [facility] Comment on above: Performed By: #### C OMP #### [address] [address] Chloride [Moles/Vol] 100 mmol/L Normal 98-110 [facility] Comment on above: Performed By: #### C OMP #### [address] [address] CO2 [Moles/Vol] 19 mmol/L Low 22-32 [facility] Comment on above: Performed By: #### C OMP #### [address] [address] Creatinine [Mass/Vol] 1.47 mg/dL High 0.44-1.03 [facility] Comment on above: Performed By: #### C OMP #### [address] [address] Glucose [Mass/Vol] 85 mg/dL Normal 70-99 [facility] Comment on above: Performed By: #### C OMP #### [address] [address] Potassium [Moles/Vol] 3.7 mmol/L Normal 3.4-4.8 [facility] Comment on above: Performed By: #### C OMP #### [address] [address] Protein [Mass/Vol] 8.7 g/dL High 6.5-8.1 [facility] Comment on above: Performed By: #### C OMP #### [address] [address] Sodium [Moles/Vol] 137 mmol/L Normal 133-142 [facility] Comment on above: Performed By: #### C OMP #### [address] [address] Urea nitrogen [Mass/Vol] 25 mg/dL Normal 8-26 [facility] Comment on above: Performed By: #### C OMP #### [address] [address] Urea nitrogen/Creatinine [Mass ratio] 17.0 mg/mg Normal 10.0-20.0 [facility] Comment on above: Performed By: #### C OMP #### [address] [address] CPKon 03-16-2020 Creatine Phosphokinase 439 IU/L High 38-234 [facility] Comment on above: Performed By: #### C P #### [address] [address] Diff Autoon 03-16-2020 Baso Absolute 0.0 x10*3/mcL Normal 0.0-0.2 [facility] [place] Comment on above: Performed By: #### . Automated Diff #### [address] [address] Basophils/100 WBC (Bld) 0.4 % Normal 0.0-1.5 [facility] Comment on above: Performed By: #### . Automated Diff #### [address] [address] Eos Absolute 0.0 x10*3/mcL Normal 0.0-0.4 [facility] Comment on above: Performed By: #### . Automated Diff #### [address] [address] Eosinophils/100 WBC (Bld) 0.1 % Normal 0.0-5.4 [facility] Comment on above: Performed By: #### . Automated Diff #### [address] [address] Lymphocytes (Bld) [#/Vol] 1.4 x10*3/mcL Normal 1.0-4.8 [facility] Comment on above: Performed By: #### . Automated Diff #### [address] [address] Lymphocytes/100 WBC (Bld) 10.8 % Low 27.2-40.8 [facility] Comment on above: Performed By: #### . Automated Diff #### [address] [address] Rich Absolute 1.5 x10*3/mcL High 0.1-1.1 [facility] [place] Comment on above: Performed By: #### . Automated Diff #### [facility] [address] [place] [address] Monocytes/100 WBC (Bld) 11.4 % Normal 3.7-11.9 [facility] Comment on above: Performed By: #### . Automated Diff #### [facility] [address] [place] [address] Neutro Absolute 10.0 x10*3/mcL High 1.8-7.7 [facility] Comment on above: Performed By: #### . Automated Diff #### [facility] [address] [place] [address] Neutro Auto 77.3 % High 47.2-70.8 [facility] Comment on above: Performed By: #### . Automated Diff #### [address] [address] ED Note-Nursingon 03-16-2020 ED Note-Nursing Lab called about add ons Electronically signed by Barbara Holman 03/16/20 20:49 EDT Normal [facility] ED Note-Physicianon 03-16-20 ED Note-Physician Chief [...] that she has residential set up at [facility] in [place], [place] but she has to detox first. [...] as well. She was seen by Alonso, case management social worker who has arranged for her to go to [facility] tomorrow as patient is interested in treatment. Verbally contracted to safety and filled out a safety plan. Alonso with social work spoke with director long term care, Jelena who will arrange for further follow-up when they arrive tomorrow. Family is agreeable with plan. Patient has good support. They will return if any changes of symptoms or concern. Silvia Castañeda scribing for and in the presence of Dr. Cornell. Scribe Attestation: The information in this document, created by the medical office assistant for me, accurately reflects the services I [...] High Lymph Auto 03/16/20 20:39 10.8 Low Rich Auto 03/16/20 20:39 11.4 Eos Auto 03/16/20 20:39 0.1 Basophil Auto 03/16/20 20:39 0.4 Neutro Absolute 03/16/20 20:39 10.0 High Lymph Absolute 03/16/20 20:39 1.4 Rich Absolute 03/16/20 20:39 1.5 High Eos Absolute [...] Lima Cornell MD 03/17/2020 04:16 EDT Normal [facility] Ethanolon 03-16-2020 Ethanol [Mass/Vol] mg/dL Normal <=9 [facility] Comment on above: Result Comment: To c onvert mg/dL to g/dL, divide result by 1,000. Legal limit of intoxication is 80 mg/dL (0.08 g/dL). Performed By: #### A LC #### [address] [address] UA w Culture if Indon 2019 Color (U) Terri Normal [facility] Comment on above: Performed By: #### U CI #### [address] [address] Glucose (U) [Mass/Vol] Negative Normal Negative [facility] Comment on above: Performed By: #### U CI #### [address] [address] Ketones Ql (U) 20 mg/dL Abnormal Negative [facility] Comment on above: Performed By: #### U CI #### [address] [address] UA Blood Small Abnormal Negative [facility] Comment on above: Performed By: #### U CI #### [address] [address] UA Clarity Cloudy Normal [facility] Comment on above: Performed By: #### U CI #### [address] [address] UA Leukocyte Esterase Trace Abnormal Negative [facility] Comment on above: Performed By: #### U CI #### [address] [address] UA Nitrite Negative Normal Negative [facility] Comment on above: Performed By: #### U CI #### [address] [address] UA pH 5.0 Normal 4.5 - 7.8 [facility] Comment on above: Performed By: #### U CI #### [address] [address] UA Protein 100 mg/dL Abnormal Negative [facility] Comment on above: Performed By: #### U CI #### [address] [address] UA Source Clean Catch Normal [facility] Comment on above: Performed By: #### U CI #### [address] [address] UA Spec Grav 1.025 Normal 1.003-1.035 [facility] Comment on above: Performed By: #### U CI #### [address] [address] UA Urobilinogen 0.2 mg/dL Normal 0.2 - 1.0 [facility] Comment on above: Performed By: #### U CI #### [place] [id number] Urobilinogen Qn (U) Small Abnormal Negative [facility] Comment on above: Performed By: #### U CI #### [address] [address] UDS Compon 03-16-2020 Creatinine [Mass/Vol] mg/dL Normal [facility] Comment on above: Performed By: #### C [id number] #### [address] [address] Ur Amph Scrn Positive Abnormal NEG = <1000 [facility] Comment on above: Result Comment: This unconfirmed positive screening result is to be used for medical treatment purposes only. Unconfirmed screening results must not be used for non-medical purposes. (e.g. employment testing, legal testing). Performed By: #### C [id number] #### [address] [address] Ur Anastasia Scrn Negative Normal NEG = <200 [facility] Comment on above: Performed By: #### C [id number] #### [facility] [address] [facility] [place] [address] Ur Benzodia Scrn Negative Normal NEG = <200 [facility] [place] Comment on above: Performed By: #### C [id number] #### [facility] [address] [place] [address] Ur Cannab Scrn Negative Normal NEG = <50 [facility] Comment on above: Performed By: #### C [id number] #### [facility] [address] [place] [address] [place] [address] Ur Cocaine Scrn Negative Normal NEG = <300 [facility] Comment on above: Performed By: #### C [id number] #### [address] [place] [address] Ur Methadone Scn Negative Normal NEG = <300 [facility] [place] Comment on above: Performed By: #### C [id number] #### [address] [place] [address] Ur Opiate Scrn Negative Normal NEG = <300 [facility] Comment on above: Performed By: #### C [id number] #### [facility] [address] [place] [address], [place] [address] Ur Oxy Screen Negative Normal NEG = <100 [facility] Comment on above: Performed By: #### C [id number] #### [facility] [address] [place] [address] [place] [address] Ur Oxy Scrn Qnt 54 ng/mL Normal <=99 [facility] Comment on above: Performed By: #### C [id number] #### [facility] [address] [place] [address] [place] [address] Ur PCP Scrn Negative Normal NEG = <25 [facility] Comment on above: Performed By: #### C [id number] #### [address] [place] [address] UA pH 5.0 Normal 4.5 - 7.8 [facility] Comment on above: Performed By: #### C [id number] #### [facility] [address] [place] [address] UA Spec Grav 1.024 Normal 1.003-1.035 [facility] Comment on above: Performed By: #### C [id number] #### [facility] [address] [place] [address] Chlamydia/GC DNA, Uron 11-23 Chlamydia Probe, Ur Negative Normal NEG [facility] Comment on above: Result Comment: CHLA MYDIA [...] Performed By: #### H IVCMB, PHEP #### [address] [id number] Health Data Analyst: Dom Fowler MD #### CP #### [facility] [address] [place], [facility] Health Data Analyst: Shakeel Graham MD Gonorrhea Probe, Ur Negative Normal NEG [facility] Comment on above: Result Comment: NEIS SERIA [...] Performed By: #### H IVCMB, PHEP #### [place] [address] [place], [place] [id number] Health Data Analyst: Dom Fowler MD #### CP #### [facility] [address] [place] [address] Health Data Analyst: Shakeel Graham MD Cult,Urineon 11-22-2019 Cult,Urine Specimen Description .VOIDED URINE Special Requests NOT REPORTED Culture NO SIGNIFICANT GROWTH Report Status FINAL 11/22/2019 Normal [facility] Comment on above: Performed By: #### H IVCMB, PHEP #### [facility] [address] [place] [address] Health Data Analyst: Dom Fowler MD #### CP #### [facility] [address] [place] [address] Health Data Analyst: Shakeel Graham MD HIV Ag/Abon 11-21-2019 HIV Ag/Ab NONREACTIVE Normal NR [facility] Comment on above: Result Comment: No l aboratory evidence of HIV infection. If acute HIV infection is suspected, consider testing for HIV-1 RNA. Performed By: #### H IVCMB, PHEP #### [address] [place] [address] Health Data Analyst: Dom Fowler MD #### CP #### [facility] [address] [place] [address] Health Data Analyst: Shakeel Graham MD HIV Screenon 11-21-2019 HIV Ag/Ab NONREACTIVE NONREACTIVE [place], [place] Comment on above: No laboratory eviden ce of HIV infection. If acute HIV infection is suspected, consider testing for HIV-1 RNA. Hep C Abon 11-21-2019 Hep C Ab REACTIVE Abnormal NR [facility] Comment on above: Result Comment: The [...] Performed By: #### H IVCMB, PHEP #### [facility] [address] [place] [address] Health Data Analyst: Dom Fowler MD #### CP #### [facility] [address] [place] [address] [place] [address] Health Data Analyst: Shakeel Graham MD Profileon 0 Hep B Surf Ag NONREACTIVE Normal NR [facility] Comment on above: Performed By: #### H IVCMB, PHEP #### [address] [place] [place] [address] Health Data Analyst: Dom Fowler MD #### CP #### [address] [place] [address] Health Data Analyst: Shakeel Graham MD T.pallidum Ab Screen NONREACTIVE Normal NR [facility] Comment on above: Result Comment: T. pallidum antibodies are not detected. There is no serological evidence of infection with T. pallidum (early primary syphilis cannot be excluded). Retest in 2-4 weeks if syphilis is clinically suspect. Performed By: #### H IVCMB, PHEP #### [address] [address] Health Data Analyst: Dom Fowler MD #### CP #### [address] [place], [place] [id number] Health Data Analyst: Shakeel Graham MD Rubella Ab, IgG 323.1 IU/mL Normal [facility] Comment on above: Result Comment: REFERENCE RANGE: <5.0 NON-REACTIVE (non-immune) 5.0 TO 9.9 EQUIVOCAL >=10.0 REACTIVE (immune) Performed By: #### H IVCMB, PHEP #### [address] [address] Health Data Analyst: Dom Fowler MD #### CP #### [address] [place], [place] [id number] Health Data Analyst: Shakeel Graham MD HCG, Quanton 11-20-2019 HCG, Quant [address] IU/L High <5 [facility] Comment on above: Result Comment: Non-preg premeno [...] Performed By: #### H IVCMB, PHEP #### [facility] [employer] [address] [place] [address] Health Data Analyst: Dom Fowler MD #### CP #### [facility] [address] [place] [address] Health Data Analyst: Shakeel Graham MD HCG, Quantitative, on 11-20-2019 hCG Quant [id number] High <5 IU/L [place], [place] Comment on above: Non-preg premeno <=5 Postmeno <=8 Male <=3 If HCG results do not concur with clinical observations, additional testing to confirm results is recommended. Elevated results not associated with may be found in patients with other diseases such as tumors of the germ cells (testis, ovaries, etc.), bladder, pancreas, stomach, lungs, and liver. Interpretation and review of laboratory results Abnormal [place], [place] Hepatitis C Antibodyon 11-19 Hepatitis C Ab REACTIVE Abnormal NONREACTIVE [place], [place] Comment on above: The hepatitis C [...] Interpretation and review of laboratory results Abnormal [place], [place] TYPE AND SCREENon 0 11-20-2019 ABO/Rh Positive [place], [place] Profileon 0 Abs. Basophil 0.03 k/uL Normal 0.00-0.20 [facility] Comment on above: Performed By: #### H IVCMB, PHEP #### [facility] [employer] [address] [place] [address] Health Data Analyst: Dom Fowler MD #### CP #### [facility] [address] [place] [address] [address] [place] [id number] ( Health Data Analyst: Shakeel Graham MD Abs.Imm.Granulocyte <0.03 Normal 0.00-0.30 [facility] Comment on above: Performed By: #### H IVCMB, PHEP #### [place] [address] Health Data Analyst: Dom Fowler MD #### CP #### [address] [place] [address]2686 ( Health Data Analyst: Shakeel Graham MD Abs.Neutrophil (Seg) 2.95 k/uL Normal 1.50-8.10 [facility] [place] [facility] Comment on above: Performed By: #### H IVCMB, PHEP #### [place] [address] Health Data Analyst: Dom Fowler MD #### CP #### [address] [place] [id number] ( Health Data Analyst: Shakeel Graham MD Basophils/100 WBC (Bld) 1 % Normal 0-2 [facility] Comment on above: Performed By: #### H IVCMB, PHEP #### [place] [address] Health Data Analyst: Dom Fowler MD #### CP #### [facility] [address] [place] [address] [place] [address] Health Data Analyst: Shakeel Graham MD Eosinophils (Bld) [#/Vol] 0.09 10*3/uL Normal 0.00-0.44 [facility] Comment on above: Performed By: #### H IVCMB, PHEP #### [address] [address] Health Data Analyst: Dom Fowler MD #### CP #### [address] [place], [place] [id number] Health Data Analyst: Shakeel Graham MD Eosinophils/100 WBC (Bld) 2 % Normal 1-4 [facility] Comment on above: Performed By: #### H IVCMB, PHEP #### [address] [address] Health Data Analyst: Dom Fowler MD #### CP #### [address] [place], [place] 9758183 Health Data Analyst: Shakeel Graham MD Erythrocyte distribution width (RBC) [Ratio] 14.0 % Normal 11.8-14.4 [facility] Comment on above: Performed By: #### H IVCMB, PHEP #### [address] [id number] Health Data Analyst: Dom Fowler MD #### CP #### [address] [place], [place] 0914383 Health Data Analyst: Shakeel Graham MD Hematocrit (Bld) [Volume fraction] 37.7 % Normal 36.3-47.1 [facility] Comment on above: Performed By: #### H IVCMB, PHEP #### [address] [address] Health Data Analyst: Dom Fowler MD #### CP #### [address] [place], [place] 2388583 Health Data Analyst: Shakeel Graham MD Hemoglobin (Bld) [Mass/Vol] 11.8 g/dL Low 11.9-15.1 [facility] Comment on above: Performed By: #### H IVCMB, PHEP #### [address] [address] Health Data Analyst: Dom Fowler MD #### CP #### [address] [place] [id number] Health Data Analyst: Shakeel Graham MD Immature granulocytes (Bld) [#/Vol] 0 % Normal 0 [facility] Comment on above: Performed By: #### H IVCMB, PHEP #### [address] [address] Health Data Analyst: Dom Fowler MD #### CP #### [facility] [address] [place] [address] Health Data Analyst: Shakeel Graham MD Lymphocytes (Bld) [#/Vol] 1.50 10*3/uL Normal 1.10-3.70 [facility] Comment on above: Performed By: #### H IVCMB, PHEP #### [address] [address] Health Data Analyst: Dom Fowler MD #### CP #### [facility] [address] [place] [address] [place] [address] Health Data Analyst: Shakeel Graham MD Lymphocytes/100 WBC (Bld) 30 % Normal 24-43 [facility] Comment on above: Performed By: #### H IVCMB, PHEP #### [address] [address] Health Data Analyst: Dom Fowler MD #### CP #### [address] [place] [address]2683 Health Data Analyst: Shakeel Graham MD MCH (RBC) [Entitic mass] 26.5 pg Normal 25.2-33.5 [facility] Comment on above: Performed By: #### H IVCMB, PHEP #### [address] [address] Health Data Analyst: Dom Fowler MD #### CP #### [facility] [address] [place] [address] Health Data Analyst: Shakeel Graham MD MCHC (RBC) [Mass/Vol] 31.3 g/dL Normal 28.4-34.8 [facility] Comment on above: Performed By: #### H IVCMB, PHEP #### [address] [address] Health Data Analyst: Dom Fowler MD #### CP #### [address] [place] [address]2683 Health Data Analyst: Shakeel Graham MD MCV (RBC) [Entitic vol] 84.5 fL Normal 82.6-102.9 [facility] Comment on above: Performed By: #### H IVCMB, PHEP #### [address] [address] Health Data Analyst: Dom Fowler MD #### CP #### [address] [place] [address]2683 Health Data Analyst: Shakeel Graham MD Monocytes (Bld) [#/Vol] 0.37 10*3/uL Normal 0.10-1.20 [facility] Comment on above: Performed By: #### H IVCMB, PHEP #### [address] [address] Health Data Analyst: Dom Fowler MD #### CP #### [address] [place] [phone] Health Data Analyst: Shakeel Graham MD Monocytes/100 WBC (Bld) 8 % Normal 3-12 [facility] Comment on above: Performed By: #### H IVCMB, PHEP #### [address] [address] Health Data Analyst: Dom Fowler MD #### CP #### [address] [place] [address] Health Data Analyst: Shakeel Graham MD Neutrophil (Seg) 59 % Normal 36-65 [facility] Comment on above: Performed By: #### H IVCMB, PHEP #### [address] [place] [address] Health Data Analyst: Dom Fowler MD #### CP #### [facility] [address] [place], [place] [address] Health Data Analyst: Shakeel Graham MD NRBC Automated 0.0 per 100 WBC Normal 0.0 [facility] Comment on above: Performed By: #### H IVCMB, PHEP #### [address] [address] Health Data Analyst: Dom Fowlre MD #### CP #### [facility] [address] [place] [address]83 Health Data Analyst: Shakeel Graham MD Platelet mean volume (Bld) [Entitic vol] 11.2 fL Normal 8.1-13.5 [facility] Comment on above: Performed By: #### H IVCMB, PHEP #### [address] [address] Health Data Analyst: Dom Fowler MD #### CP #### [facility] [address] [place] [address] [place] [id number] Health Data Analyst: Shakeel Graham MD Platelets (Bld) [#/Vol] 254 10*3/uL Normal 138-453 [facility] Comment on above: Performed By: #### H IVCMB, PHEP #### [address] [address] Health Data Analyst: Dom Fowler MD #### CP #### [facility] [address] [place] [address] [place], [place] 7[address]83 Health Data Analyst: Shakeel Graham MD RBC (Bld) [#/Vol] 4.46 10*6/uL Normal 3.95-5.11 [facility] Comment on above: Performed By: #### H IVCMB, PHEP #### [address] [address] Health Data Analyst: Dom Fowler MD #### CP #### [facility] [address] [place] [address] [place] [address] Health Data Analyst: Shakeel Graham MD WBC (Bld) [#/Vol] 5.0 10*3/uL Normal 3.5-11.3 [facility] Comment on above: Performed By: #### H IVCMB, PHEP #### [address] [address] [address] Health Data Analyst: Dom Fowler MD #### CP #### [address] [place] [address] Health Data Analyst: Shakeel Graham MD Auto Diff Performed NOT REPORTED Normal [facility] Comment on above: Performed By: #### H IVCMB, PHEP #### [address] [address] Health Data Analyst: Dom Fowler MD #### CP #### [address] [place] [address] Health Data Analyst: Shakeel Graham MD Platelets (Bld) [#/Vol] NOT REPORTED Normal [facility] Comment on above: Performed By: #### H IVCMB, PHEP #### [address] [address] Health Data Analyst: Dom Fowler MD #### CP #### [address] [place] [address] Health Data Analyst: Shakeel Graham MD RBC morphology finding Nom (Bld) NOT REPORTED Normal [facility] Comment on above: Performed By: #### H IVCMB, PHEP #### [address] [address] Health Data Analyst: Dom Fowler MD #### CP #### [address] [place] [address] Health Data Analyst: Shakeel Graham MD WBC Morphology NOT REPORTED Normal [facility] Comment on above: Performed By: #### H IVCMB, PHEP #### [address] [id number] Health Data Analyst: Dom Fowler MD #### CP #### [address] [place] 1967783 Health Data Analyst: Shakeel Graham MD Type + Scrnon 11-19 Type + Scrn Negative Normal [facility] [place] Comment on above: Performed By: #### H IVCMB, PHEP #### [address] [address] Health Data Analyst: Dom Fowler MD #### CP #### [address] [place] [id number] Health Data Analyst: Shakeel Graham MD Toxicology [facility] [place] Amphetamine(s),Ur Negative Normal NEG [facility] Comment on above: Performed By: #### H IVCMB, PHEP #### [address] [address] Health Data Analyst: Dom Fowler MD #### CP #### [address] [place], [place] 9001183 Health Data Analyst: Shakeel Graham MD Barbiturate(s),Ur Negative Normal NEG [facility] Comment on above: Performed By: #### H IVCMB, PHEP #### [address] [address] Health Data Analyst: Dom Fowler MD #### CP #### [address] [place] [address] Health Data Analyst: Shakeel Graham MD Benzodiazepine(s) Negative Normal NEG [facility] Comment on above: Performed By: #### H IVCMB, PHEP #### [facility] [address] [place] [address] Health Data Analyst: Dom Fowler MD #### CP #### [facility] [address] [place] [address] Dr. [place], [place] 2441983 Health Data Analyst: Shakeel Graham MD Buprenorphrine, Ur Negative Normal NEG [facility] Comment on above: Performed By: #### H IVCMB, PHEP #### [address] [address] Health Data Analyst: Dom Fowler MD #### CP #### [facility] [address] [place] [address] [place] [address] Health Data Analyst: Shakeel Graham MD Cannabinoid(s),Ur Negative Normal NEG [facility] Comment on above: Performed By: #### H IVCMB, PHEP #### [address] [address] Health Data Analyst: Dom Fowler MD #### CP #### [facility] [address] [place] [address] Dr[address] [place] [phone] Health Data Analyst: Shakeel Graham MD Cocaine Metabolite Negative Normal [facility] Comment on above: Performed By: #### H IVCMB, PHEP #### [address] [address] Health Data Analyst: Dom Fowler MD #### CP #### [facility] [address] [place] [address] Dr. [place], [place] 1748383 Health Data Analyst: Shakeel Graham MD Methadone Ql (U) Negative Normal NEG [facility] Comment on above: Performed By: #### H IVCMB, PHEP #### [address] [address] Health Data Analyst: Dom Fowler MD #### CP #### [facility] [address] [place] [address] Dr. [place], [place] 8926983 Health Data Analyst: Shakeel Graham MD Methamphetamine, Ur Negative Normal NEG [facility] Comment on above: Performed By: #### H IVCMB, PHEP #### [facility] [address] [place] [address] Health Data Analyst: Dom Fowler MD #### CP #### [address] [place], [place] [id number] Health Data Analyst: Shakeel Graham MD Opiate(s), Ur Negative Normal NEG [facility] Comment on above: Performed By: #### H IVCMB, PHEP #### [address] [address] Health Data Analyst: Dom Fowler MD #### CP #### [address] [place], [place] 1035583 Health Data Analyst: Shakeel Graham MD Oxycodone, Urine Negative Normal NEG [facility] Comment on above: Performed By: #### H IVCMB, PHEP #### [facility] [address] [place] [address] Health Data Analyst: Dom Fowler MD #### CP #### [address] [place], [place] 0450183 Health Data Analyst: Shakeel Graham MD Phencyclidine, Ur Negative Normal NEG [facility] Comment on above: Performed By: #### H IVCMB, PHEP #### [address] [address] Health Data Analyst: Dom Fowler MD #### CP #### [address] [place], [place] [id number] Health Data Analyst: Shakeel Graham MD Propoxyphene,Urine Negative Normal NEG [facility] Comment on above: Performed By: #### H IVCMB, PHEP #### [address] [address] Health Data Analyst: Dom Fowler MD #### CP #### [facility] [address] [place] [address] [place] [address] Health Data Analyst: Shakeel Graham MD Tricyclic antidepressants Screen Ql (U) Negative Normal NEG [facility] Comment on above: Result Comment: Drug screen results are to be used for medical purposes only. All positive results are unconfirmed. Testing for employment or legal uses should be sent to a reference laboratory for confirmation. Performed By: #### H IVCMB, PHEP #### [address] [address] Health Data Analyst: Dom Fowler MD #### CP #### [address] [place], [place] 9178583 Health Data Analyst: Shakeel Graham MD Interpretive Info NOT REPORTED Normal [facility] Comment on above: Performed By: #### H IVCMB, PHEP #### [address] [address] Health Data Analyst: Dom Fowler MD #### CP #### [address] [place], [place] 5243983 Health Data Analyst: Shakeel Graham MD MDMA, Urine NOT REPORTED Normal NEG [facility] Comment on above: Performed By: #### H IVCMB, PHEP #### [address] [address] Health Data Analyst: Dom Fowler MD #### CP #### [facility] [address] [place] [address] Dr. [place], [place] 3935983 Health Data Analyst: Shakeel Graham MD Urine Drug Screen, Magda grieron 11-20-2019 Amphetamine Screen, Ur Negative NEGATIVE [facility] [place] Barbiturate Screen, Ur Negative NEGATIVE [facility] [place] Benzodiazepine Screen, Urine Negative NEGATIVE [facility] [place] Buprenorphine Urine Negative NEGATIVE [facility] [place] Cannabinoid Scrn, Ur Negative NEGATIVE [facility] [place] Cocaine Metabolite, Urine Negative NEGATIVE [facility] [place] MDMA, Urine NOT REPORTED NEGATIVE [facility] [place] Methadone Screen, Urine Negative NEGATIVE [facility] [place] Methamphetamine, Urine Negative NEGATIVE [facility] [place] Opiates, Urine Negative NEGATIVE [facility] [place] Oxycodone Screen, Ur Negative NEGATIVE [facility] [place] Phencyclidine, Urine Negative NEGATIVE [facility] [place] Propoxyphene, Urine Negative NEGATIVE [facility] [place] Test Information NOT REPORTED [facility] [place] Tricyclic Antidepressants, Urine Negative NEGATIVE [facility] [place] Comment on above: Drug screen results are to be used for medical purposes only. All positive results are unconfirmed. Testing for employment or legal uses should be sent to a reference laboratory for confirmation. Chlamydia/GC DNA, Uron 06-20 Chlamydia Probe, Ur Negative Normal NEG [facility] Comment on above: Result Comment: CHLA MYDIA [...] nucleic acid target. Performed By: #### U [facility] #### [address] [place] [address] Health Data Analyst: Dom Fowler MD Gonorrhea Probe, Ur Negative Normal NEG [facility] Comment on above: Result Comment: NEIS SERIA [...] target. Performed By: #### U CGP #### [address] [address] Health Data Analyst: Dom Fowler MD Cult,Urineon 06-20-2019 Cult,Urine Specimen Description .CLEAN CATCH URINE Special Requests NOT REPORTED Culture NO SIGNIFICANT GROWTH Report Status FINAL 06/20/2019 Normal [facility] Comment on above: Performed By: #### H IVCMB, PHEP #### [address] [address] Health Data Analyst: Dom Fowler MD #### CP #### [facility] [address] [place] [address] Health Data Analyst: Shakeel Graham MD HIV Ag/Abon 06-20-2019 HIV Ag/Ab NONREACTIVE Normal [facility] Comment on above: Result Comment: No l aboratory evidence of HIV infection. If acute HIV infection is suspected, consider testing for HIV-1 RNA. Performed By: #### A HCV, HIVCMB #### [address] [address] Health Data Analyst: Dom Fowler MD Hep C Abon 06-20-2019 Hep C Ab REACTIVE Abnormal [facility] Comment on above: Result Comment: The [...] Performed By: #### A HCV, HIVCMB #### [address] [address] Health Data Analyst: Dom Fowler MD Profileon 9 T.pallidum Ab Screen NONREACTIVE Normal [facility] Comment on above: Result Comment: T. pallidum antibodies are not detected. There is no serological evidence of infection with T. pallidum (early primary syphilis cannot be excluded). Retest in 2-4 weeks if syphilis is clinically suspect. Performed By: #### P RENAT #### [address] [place] [address] Health Data Analyst: Dom Fowler MD [facility] [address] [place] [address] Dr. [place], [place] 7879983 Health Data Analyst: Shakeel Graham MD Hep B Surf Ag NONREACTIVE Normal NR [facility] Comment on above: Performed By: #### P RENAT #### [address] [address] Health Data Analyst: Dom Fowler MD [address] [place] [phone] Health Data Analyst: Shakeel Graham MD Rubella Ab, IgG 286.1 IU/mL Normal [facility] Comment on above: Result Comment: REFERENCE RANGE: <5.0 NON-REACTIVE (non-immune) 5.0 TO 9.9 EQUIVOCAL >=10.0 REACTIVE (immune) Performed By: #### P RENAT #### [address] [address] Health Data Analyst: Dom Fowler MD [address] [place], [facility] Health Data Analyst: Shakeel Graham MD HCG, Quanton 06-19-2019 HCG, Quant 31660 IU/L High <5 [facility] Comment on above: Result Comment: Non-preg premeno <=5 Postmeno <=8 Male <=3 If HCG results do not concur with clinical observations, additional testing to confirm results is recommended. Elevated results not associated with may be found in patients with other diseases such as tumors of the germ cells (testis, ovaries, etc.), bladder, pancreas, stomach, lungs, and liver. Performed By: #### B HCG #### [facility] [address] [place] [address] [place] [address] Health Data Analyst: Shakeel Graham MD HCG, Quantitative, on 06-19-2019 hCG Quant [address]23[address] High <5 IU/L [place] Comment on above: Non-preg premeno <=5 Postmeno <=8 Male <=3 If HCG results do not concur with clinical observations, additional testing to confirm results is recommended. Elevated results not associated with may be found in patients with other diseases such as tumors of the germ cells (testis, ovaries, etc.), bladder, pancreas, stomach, lungs, and liver. Interpretation and review of laboratory results Abnormal [place] HIV Screenon 06-19-2019 HIV Ag/Ab NONREACTIVE NONREACTIVE [place], [place] Comment on above: No laboratory eviden ce of HIV infection. If acute HIV infection is suspected, consider testing for HIV-1 RNA. Hepatitis C Antibodyon 06-19 Hepatitis C Ab REACTIVE Abnormal [facility]REACTIVE [facility] [place] [place] Comment on above: The hepatitis C [...] Interpretation and review of laboratory results Abnormal [place] PROFILE Ion 019 Basophils (Bld) [#/Vol] 10*3/uL [place] Basophils/100 WBC (Bld) 1 % 0 - 2 % [place] Differential Type NOT REPORTED [place] Eosinophils (Bld) [#/Vol] 0.09 10*3/uL [place] Eosinophils/100 WBC (Bld) 2 % 1 - 4 % [place] Erythrocyte distribution width (RBC) [Ratio] 15.7 % High 11.8 - 14.4 % [place] Hematocrit (Bld) [Volume fraction] 36.5 % 36.3 - 47.1 % [place] Hemoglobin (Bld) [Mass/Vol] 11.2 g/dL Low 11.9 - 15.1 g/dL [place] Hepatitis B Surface Ag NONREACTIVE NONREACTIVE [place] Immature granulocytes (Bld) [#/Vol] 0 % 0 [place] Immature granulocytes (Bld) [#/Vol] 10*3/uL [place] Interpretation and review of laboratory results Abnormal [place] Lymphocytes (Bld) [#/Vol] 1.98 10*3/uL [place] Lymphocytes/100 WBC (Bld) 46 % High 24 - 43 % [place] MCH (RBC) [Entitic mass] 25.6 pg 25.2 - 33.5 pg [place] MCHC (RBC) [Mass/Vol] 30.7 g/dL 28.4 - 34.8 g/dL [place] MCV (RBC) [Entitic vol] 83.3 fL 82.6 - 102.9 fL [place] Monocytes (Bld) [#/Vol] 0.37 10*3/uL [place] Monocytes/100 WBC (Bld) 9 % 3 - 12 % [place] Platelet mean volume (Bld) [Entitic vol] 11.6 fL 8.1 - 13.5 fL [place] Platelets (Bld) [#/Vol] NOT REPORTED [place] Platelets (Bld) [#/Vol] 196 10*3/uL [place] RBC (Bld) [#/Vol] 4.38 10*6/uL 3.95 - 5.1 1 m/uL [place] RBC morphology finding Nom (Bld) NOT REPORTED [place] Rubella virus IgG Ql (S) 286.1 IU/mL [place] Comment on above: REFERENCE RANGE: <5.0 NON-REACTIVE (non-immune) 5.0 TO 9.9 EQUIVOCAL >=10.0 REACTIVE (immune) Segmented neutrophils/100 WBC (Bld) 42 % 36 - 65 % [place] Segs Absolute 1.75 [place] T. pallidum, IgG NONREACTIVE NONREACTIVE [place] Comment on above: T. pallidum antibodies are not detected. There is no serological evidence of infection with T. pallidum (early primary syphilis cannot be excluded). Retest in 2-4 weeks if syphilis is clinically suspect. WBC (Bld) [#/Vol] 4.2 10*3/uL [place] WBC (Bld) [#/Vol] 0.0 10*3/uL 0.0 per 100 WBC [place], [place] WBC Morphology NOT REPORTED [place], [place] TYPE AND SCREENon 1 ABO/Rh Positive [place] Profileon 9 Abs. Basophil <0.03 Normal 0.00-0.20 [facility] Comment on above: Performed By: #### P RENAT #### [address] [address] Health Data Analyst: Dom Fowler MD [address] [place] [phone] Health Data Analyst: Shakeel Graham MD Abs.Imm.Granulocyte <0.03 Normal 0.00-0.30 [facility] Comment on above: Performed By: #### P RENAT #### [address] [address] Health Data Analyst: Dom Fowler MD [address] [place] 7062683 Health Data Analyst: Shakeel Graham MD Abs.Neutrophil (Seg) 1.75 k/uL Normal 1.50-8.10 [facility] [place] Comment on above: Performed By: #### P RENAT #### [address] [address] Health Data Analyst: Dom Fowler MD [address] [place] [address]2683 Health Data Analyst: Shakeel Graham MD Basophils/100 WBC (Bld) 1 % Normal 0-2 [facility] Comment on above: Performed By: #### P RENAT #### [address] [address] Health Data Analyst: Dom Fowler MD [address] Felix [facility] Health Data Analyst: Shakeel Graham MD Eosinophils (Bld) [#/Vol] 0.09 10*3/uL Normal 0.00-0.44 [facility] Comment on above: Performed By: #### P RENAT #### [address] [address] Health Data Analyst: Dom Fowler MD [address] [place] [phone] Health Data Analyst: Shakeel Graham MD Eosinophils/100 WBC (Bld) 2 % Normal 1-4 [facility] Comment on above: Performed By: #### P RENAT #### [address] [address] Health Data Analyst: Dom Fowler MD [address] [place] [phone] Health Data Analyst: Shakeel Graham MD Erythrocyte distribution width (RBC) [Ratio] 15.7 % High 11.8-14.4 [facility] Comment on above: Performed By: #### P RENAT #### [address] [address] Health Data Analyst: Dom Fowler MD [address] [place] 7062683 Health Data Analyst: Shakeel Graham MD Hematocrit (Bld) [Volume fraction] 36.5 % Normal 36.3-47.1 [facility] Comment on above: Performed By: #### P RENAT #### [address] [address] Health Data Analyst: Dom Fowler MD [address] [place] [phone] Health Data Analyst: Shakeel Graham MD Hemoglobin (Bld) [Mass/Vol] 11.2 g/dL Low 11.9-15.1 [facility] Comment on above: Performed By: #### P RENAT #### [address] [place] [address] Health Data Analyst: Dom Fowler MD [facility] [address] [place] [address] Dr. [place] [phone] Health Data Analyst: Shakeel Graham MD Immature granulocytes (Bld) [#/Vol] 0 % Normal 0 [facility] Comment on above: Performed By: #### P RENAT #### [address] [address] Health Data Analyst: Dom Fowler MD [facility] [address] [place] [address] Dr. [place] [phone] Health Data Analyst: Shakeel Graham MD Lymphocytes (Bld) [#/Vol] 1.98 10*3/uL Normal 1.10-3.70 [facility] Comment on above: Performed By: #### P RENAT #### [address] [address] Health Data Analyst: Dom Fowler MD [address] [place] [address] Health Data Analyst: Shakeel Graham MD Lymphocytes/100 WBC (Bld) 46 % High 24-43 [facility] Comment on above: Performed By: #### P RENAT #### [address] [address] Health Data Analyst: Dom Fowler MD [facility] [address] [place] [address] [place] [address]83 Health Data Analyst: Shakeel Graham MD MCH (RBC) [Entitic mass] 25.6 pg Normal 25.2-33.5 [facility] Comment on above: Performed By: #### P RENAT #### [address] [address] Health Data Analyst: Dom Fowler MD [address] [place], [place] 1132283 Health Data Analyst: Shakeel Graham MD MCHC (RBC) [Mass/Vol] 30.7 g/dL Normal 28.4-34.8 [facility] Comment on above: Performed By: #### P RENAT #### [address] [address] Health Data Analyst: Dom Fowler MD [address] [place] 7062683 Health Data Analyst: Shakeel Graham MD MCV (RBC) [Entitic vol] 83.3 fL Normal 82.6-102.9 [facility] Comment on above: Performed By: #### P RENAT #### [address] [address] Health Data Analyst: Dom Fowler MD [address] [place] [phone] Health Data Analyst: Shakeel Graham MD Monocytes (Bld) [#/Vol] 0.37 10*3/uL Normal 0.10-1.20 [facility] Comment on above: Performed By: #### P RENAT #### [address] [address] Health Data Analyst: Dom Fowler MD [address] [place] [address] Health Data Analyst: Shakeel Graham MD Monocytes/100 WBC (Bld) 9 % Normal 3-12 [facility] Comment on above: Performed By: #### P RENAT #### [address] [address] Health Data Analyst: Dom Fowelr MD [address] [place] [phone] Health Data Analyst: Shakeel Graham MD Neutrophil (Seg) 42 % Normal 36-65 [facility] Comment on above: Performed By: #### P RENAT #### [address] [place] [address] Health Data Analyst: Dom Fowler MD [address] [place] [phone] Health Data Analyst: Shakeel Graham MD NRBC Automated 0.0 per 100 WBC Normal 0.0 [facility] Comment on above: Performed By: #### P RENAT #### [address] [address] Health Data Analyst: Dom Fowler MD [address] Felix [facility] Health Data Analyst: Shakeel Graham MD Platelet mean volume (Bld) [Entitic vol] 11.6 fL Normal 8.1-13.5 [facility] Comment on above: Performed By: #### P RENAT #### [address] [address] Health Data Analyst: Dom Fowler MD [address] [place] [phone] Health Data Analyst: Shakeel Graham MD Platelets (Bld) [#/Vol] 196 10*3/uL Normal 138-453 [facility] Comment on above: Performed By: #### P RENAT #### [address] [address] Health Data Analyst: Dom Fowler MD [address] [place] [phone] Health Data Analyst: Shakeel Graham MD RBC (Bld) [#/Vol] 4.38 10*6/uL Normal 3.95-5.11 [facility] Comment on above: Performed By: #### P RENAT #### [address] [address] Health Data Analyst: Dom Fowler MD [address] [place] [address] Health Data Analyst: Shakeel Graham MD WBC (Bld) [#/Vol] 4.2 10*3/uL Normal 3.5-11.3 [facility] Comment on above: Performed By: #### P RENAT #### [address] [address] Health Data Analyst: Dom Fowler MD [address] [place] [address] Health Data Analyst: Shakeel Graham MD Auto Diff Performed NOT REPORTED Normal [facility] Comment on above: Performed By: #### P RENAT #### [address] [address] Health Data Analyst: Dom Fowler MD [address] [place] [address] Health Data Analyst: Shakeel Graham MD Platelets (Bld) [#/Vol] NOT REPORTED Normal [facility] Comment on above: Performed By: #### P RENAT #### [address] [address] Health Data Analyst: Dom Fowler MD [address] [place] [address] Health Data Analyst: Shakeel Graham MD RBC morphology finding Nom (Bld) NOT REPORTED Normal [facility] Comment on above: Performed By: #### P RENAT #### [address] [address] Health Data Analyst: Dom Fowler MD [address] [place] [address] Health Data Analyst: Shakeel Graham MD WBC Morphology NOT REPORTED Normal [facility] Comment on above: Performed By: #### P RENAT #### [address] [address] Health Data Analyst: Dom Fowler MD [address] [place] 9503283 Health Data Analyst: Shakeel Graham MD Type + Scrnon 06-19 Type + Scrn Negative [facility] Comment on above: Performed By: #### P RTYS #### [facility] [address] [place], [place] 1385383 Health Data Analyst: Shakeel Graham MD Toxicology Scree, Urineon Amphetamine(s),Ur Negative Normal NEG [facility] Comment on above: Performed By: #### C PDAU #### [facility] [address] [place], [place] 0047483 Health Data Analyst: Shakeel Graham MD Barbiturate(s),Ur Negative Normal NEG [facility] Comment on above: Performed By: #### C PDAU #### [facility] [address] [place], [facility] Health Data Analyst: Shakeel Graham MD Benzodiazepine(s) Negative Normal [facility] Comment on above: Performed By: #### C PDAU #### [facility] [address] [place] [phone] Health Data Analyst: Shakeel Graham MD Buprenorphrine, Ur Negative Normal [facility] Comment on above: Performed By: #### C PDAU #### [facility] [address] [place], [facility] Health Data Analyst: Shakeel Graham MD Cannabinoid(s),Ur Negative Normal NEG [facility] Comment on above: Performed By: #### C PDAU #### [facility] [address] [place], [place] 0023283 Health Data Analyst: Shakeel Graham MD Cocaine Metabolite Negative Normal [facility] Comment on above: Performed By: #### C PDAU #### [facility] [address] [place], [place] 4605183 Health Data Analyst: Shakeel Graham MD Methadone Ql (U) Negative Normal NEG [facility] Comment on above: Performed By: #### C PDAU #### [facility] [address] [place], [place] 5903783 Health Data Analyst: Shakeel Graham MD Methamphetamine, Ur Negative Normal NEG [facility] Comment on above: Performed By: #### C PDAU #### [facility] [address] [place], [place] [id number] Health Data Analyst: Shakeel Graham MD Opiate(s), Ur Negative Normal NEG [facility] Comment on above: Performed By: #### C PDAU #### [facility] [address] [place] [address] Health Data Analyst: Shakeel Graham MD Oxycodone, Urine Negative Normal NEG [facility] Comment on above: Performed By: #### C PDAU #### [facility] [address] [place], [place] [id number] Health Data Analyst: Shakeel Graham MD Phencyclidine, Ur Negative Normal [facility] Comment on above: Performed By: #### C PDAU #### [facility] [address] [place], [place] [id number] Health Data Analyst: Shakeel Graham MD Propoxyphene,Urine Negative Normal NEG [facility] Comment on above: Performed By: #### C PDAU #### [facility] [address] [place], [place] [id number] Health Data Analyst: Shakeel Graham MD Tricyclic antidepressants Screen Ql (U) Positive Abnormal NEG [facility] Comment on above: Result Comment: Drug screen results are to be used for medical purposes only. All positive results are unconfirmed. Testing for employment or legal uses should be sent to a reference laboratory for confirmation. Performed By: #### C PDAU #### [facility] [address] [place] [address] Health Data Analyst: Shakeel Graham MD Interpretive Info NOT REPORTED Normal [facility] Comment on above: Performed By: #### C PDAU #### [facility] [address] [place] [address] Health Data Analyst: Shakeel Graham MD MDMA, Urine NOT REPORTED Normal NEG [facility] Comment on above: Performed By: #### C PDAU #### [facility] [address] [place] [address] Health Data Analyst: Shakeel Graham MD Urine Drug Screen, Magda [...] [place] Tricyclic Antidepressants, Urine Positive Abnormal NEGATIVE [facility] [place], [place] Comment on above: Drug screen results are to be used for medical purposes only. All positive results are unconfirmed. Testing for employment or legal uses should be sent to a reference laboratory for confirmation. HIV Ag/Abon 05-10-2019 HIV Ag/Ab NONREACTIVE Normal NR [facility] Comment on above: Result Comment: No l aboratory evidence of HIV infection. If acute HIV infection is suspected, consider testing for HIV-1 RNA. Performed By: #### H IVCMB, PHEP #### [facility] [place] [address] Health Data Analyst: Dom Fowler MD #### CP #### [facility] [address] [place], [place] [id number] Health Data Analyst: Shakeel Graham MD Hepatitis Acute [facility] 05-10 Hep A Ab,IgM NONREACTIVE Normal NR [facility] Comment on above: Performed By: #### H IVCMB, PHEP #### [address] [address] Health Data Analyst: Dom Fowler MD #### CP #### [address] [place] [address] Health Data Analyst: Shakeel Graham MD Hep B Core Ab,IgM NONREACTIVE Normal [facility] Comment on above: Performed By: #### H IVCMB, PHEP #### [address] [address] Health Data Analyst: Dom Fowler MD #### CP #### [facility] [address] [place] [address] Dr. [place], [place] [id number] Health Data Analyst: Shakeel Graham MD Hep B Surf Ag NONREACTIVE Normal [facility] Comment on above: Performed By: #### H IVCMB, PHEP #### [address] [address] Health Data Analyst: Dom Fowler MD #### CP #### [facility] [address] [place] [address] Dr. [place], [place] [phone] Health Data Analyst: Shakeel Graham MD Hep C Ab REACTIVE Abnormal [facility] Comment on above: Result Comment: The [...] Performed By: #### H IVCMB, PHEP #### [place] [place] [address] Health Data Analyst: Dom Fowler MD #### CP #### [facility] [address] [place] [address] [place], [place] 1260783 Health Data Analyst: Shakeel Graham MD Comp Metabolic Profon 2018 (cont.) Normal [facility] Comment on above: Result Comment: Aver age GFR for 20-29 years old: 116 mL/min/1.73sq m Chronic Kidney Disease: <60 mL/min/1.73sq m Kidney failure: <15 mL/min/1.73sq m eGFR calculated using average adult body mass. Additional eGFR calculator available at: http://www.[employer]/multiple_crcl_2011.htm Performed By: #### H IVCMB, PHEP #### [address] [address] Health Data Analyst: Dom Fowler MD #### CP #### [facility] [address] [place] [address] [place], [place] [id number] Health Data Analyst: Shakeel Graham MD Albumin [Mass/Vol] 4.3 g/dL Normal 3.5-5.2 [facility] Comment on above: Performed By: #### H IVCMB, PHEP #### [address] [address] Health Data Analyst: Dom Fowler MD #### CP #### [address] [place], [place] [address] Health Data Analyst: Shakeel rGaham MD Albumin/Globulin [Mass ratio] 1.4 {ratio} Normal 1.0-2.5 [facility] Comment on above: Performed By: #### H IVCMB, PHEP #### [address] [address] Health Data Analyst: Dom Fowler MD #### CP #### [facility] [address] [place], [place] [id number] Health Data Analyst: Shakeel Graham MD Alkaline Phos 50 U/L Normal 35-104 [facility] Comment on above: Performed By: #### H IVCMB, PHEP #### [address] [address] Health Data Analyst: Dom Fowler MD #### CP #### [facility] [address] [place] [address] Dr. [place], [place] 8646083 Health Data Analyst: Shakeel Graham MD ALT [Catalytic activity/Vol] 9 U/L Normal 5-33 [facility] Comment on above: Performed By: #### H IVCMB, PHEP #### [address] [address] Health Data Analyst: Dom Fowler MD #### CP #### [address] [place], [place] [address]365[address] Health Data Analyst: Shakeel Graham MD Anion gap [Moles/Vol] 8 mmol/L Low 9-17 [facility] Comment on above: Performed By: #### H IVCMB, PHEP #### [address] [address] Health Data Analyst: Dom Fowler MD #### CP #### [address] [place], [place] 0582683 Health Data Analyst: Shakeel Graham MD AST [Catalytic activity/Vol] 15 U/L Normal <32 [facility] Comment on above: Performed By: #### H IVCMB, PHEP #### [address] [address] Health Data Analyst: Dom Fowler MD #### CP #### [address] [place], [place] [address]297883 Health Data Analyst: Shakeel Graham MD Bilirubin Ql (U) 0.31 mg/dL Normal 0.3-1.2 [facility] Comment on above: Performed By: #### H IVCMB, PHEP #### [facility] [address] [place] [address] Health Data Analyst: Dom Fowler MD #### CP #### [facility] [address] [place], [place] 9281283 Health Data Analyst: Shakeel Graham MD BUN/CRE Ratio 20 Normal 9-20 [facility] Comment on above: Performed By: #### H IVCMB, PHEP #### [address] [address] Health Data Analyst: Dom Fowler MD #### CP #### [facility] [address] [place], [place] 6231783 Health Data Analyst: Shakeel Graham MD Calcium [Mass/Vol] 9.4 mg/dL Normal 8.6-10.4 [facility] Comment on above: Performed By: #### H IVCMB, PHEP #### [address] [address] Health Data Analyst: Dom Fowler MD #### CP #### [facility] [address] [place] [address] Dr. [place], [place] 3842983 Health Data Analyst: Shakeel Graham MD Chloride [Moles/Vol] 102 mmol/L Normal 98-107 [facility] Comment on above: Performed By: #### H IVCMB, PHEP #### [address] [address] Health Data Analyst: Dom Fowler MD #### CP #### [facility] [address] [place], [place] 378[address]83 Health Data Analyst: Shakeel Graham MD CO2 [Moles/Vol] 28 mmol/L Normal 20-31 [facility] Comment on above: Performed By: #### H IVCMB, PHEP #### [address] [address] Health Data Analyst: Dom Fowler MD #### CP #### [facility] [address] [place], [place] 6025083 Health Data Analyst: Shakeel Graham MD Creatinine [Mass/Vol] 0.92 mg/dL High 0.50-0.90 [facility] Comment on above: Performed By: #### H IVCMB, PHEP #### [address] [address] Health Data Analyst: Dom Fowler MD #### CP #### [address] [place] [address] Health Data Analyst: Shakeel Graham MD GFR, Amer >60 Normal >60 [facility] Comment on above: Performed By: #### H IVCMB, PHEP #### [address] [address] Health Data Analyst: Dom Fowler MD #### CP #### [facility] [address] [place] [address] Dr. [place], [place] 1619383 Health Data Analyst: Shakeel Graham MD GFR,non Amer >60 Normal >60 [facility] Comment on above: Performed By: #### H IVCMB, PHEP #### [address] [address] Health Data Analyst: Dom Fowler MD #### CP #### [facility] [address] [place], [place] [address]18083 Health Data Analyst: Shakeel Graham MD Glucose [Mass/Vol] 91 mg/dL Normal 70-99 [facility] Comment on above: Performed By: #### H IVCMB, PHEP #### [address] [address] Health Data Analyst: Dom Fowler MD #### CP #### [facility] [address] [place] [address] Dr. [place], [place] 7764783 Health Data Analyst: Shakeel Graham MD Potassium [Moles/Vol] 4.3 mmol/L Normal 3.7-5.3 [facility] Comment on above: Performed By: #### H IVCMB, PHEP #### [address] [address] Health Data Analyst: Dom Fowler MD #### CP #### [address] [place], [place] 445[address]83 Health Data Analyst: Shakeel Graham MD Protein [Mass/Vol] 7.4 g/dL Normal 6.4-8.3 [facility] Comment on above: Performed By: #### H IVCMB, PHEP #### [address] [address] Health Data Analyst: Dom Fowler MD #### CP #### [address] [place], [place] [address] Health Data Analyst: Shakeel Graham MD Sodium [Moles/Vol] 138 mmol/L Normal 135-144 [facility] Comment on above: Performed By: #### H IVCMB, PHEP #### [address] [address] Health Data Analyst: Dom Fowler MD #### CP #### [address] [place], [place] [address] Health Data Analyst: Shakeel Graham MD Staging: Normal [facility] Comment on above: Result Comment: Stag e 1: Some kidney damage normal GFR Stage 2: Mild kidney damage GFR 60-89 Stage 3: Moderate kidney damage GFR 30-59 Stage 4: Severe kidney damage GFR 15-29 Stage 5: Severe kidney damage GFR <15 ESRD - chronic treatment by dialysis or transplant Performed By: #### H IVCMB, PHEP #### [address] [id number] Health Data Analyst: Dom Fowler MD #### CP #### [facility] [address] [place] [address] Health Data Analyst: Shakeel Graham MD Urea nitrogen [Mass/Vol] 18 mg/dL Normal 6-20 [facility] Comment on above: Performed By: #### H IVC, PHEP #### [facility] [address] [place], [place] 239[address] Health Data Analyst: Dom Fowler MD #### CP #### [facility] [address] [place] [address] Health Data Analyst: Shakeel Graham MD [facility] Metabolic Pane [facility] 05-09-2019 Albumin [Mass/Vol] 4.3 g/dL 3.5 - 5.2 g/dL [place], [place] Albumin/Globulin [Mass ratio] 1.4 {ratio} [place], [place] ALP [Catalytic activity/Vol] 50 U/L 35 - 104 U/L [place] ALT [Catalytic activity/Vol] 9 U/L 5 - 33 U/L [place] Anion gap [Moles/Vol] 8 mmol/L Low 9 - 17 mmol/L [place] AST [Catalytic activity/Vol] 15 U/L <32 [place] Bilirubin Ql (U) 0.31 mg/dL 0.3 - 1.2 mg/dL [place], [place] Bun/Cre Ratio 20 [place], [place] Calcium [Mass/Vol] 9.4 mg/dL 8.6 - 10. 4 mg/dL [place] Chloride [Moles/Vol] 102 mmol/L 98 - 107 mmol/L [place] CO2 [Moles/Vol] 28 mmol/L 20 - 31 mmol/L [place] Creatinine [Mass/Vol] 0.92 mg/dL High 0.5 - 0.9 mg/dL [place] GFR >60 >60 mL/min [place], [place] GFR Non- >60 >60 mL/min [place] Glucose [Mass/Vol] 91 mg/dL 70 - 99 mg/dL [place], [place] Interpretation and review of laboratory results Abnormal [place] Potassium [Moles/Vol] 4.3 mmol/L 3.7 - 5.3 mmol/L [place] Protein [Mass/Vol] 7.4 g/dL 6.4 - 8.3 g/dL [place], [place] Sodium [Moles/Vol] 138 mmol/L 135 - 144 mmol/L [place] Urea nitrogen [Mass/Vol] 18 mg/dL 6 - 20 mg/dL [place] Hepatitis Panel, Acuteon HAV IgM IA Qn (S) NONREACTIVE NONREACTIVE [place] Hep B Core Ab, IgM NONREACTIVE NONREACTIVE [place], [place] Hepatitis B Surface Ag NONREACTIVE NONREACTIVE [place] Hepatitis C Ab REACTIVE Abnormal NONREACTIVE [place], [place] Comment on above: The hepatitis C [...] Interpretation and review of laboratory results Abnormal [place] Metabolic Panelon 05-09-2019 GFR/1.73 sq M predicted among non-blacks MDRD (S/P/Bld) [Vol rate/Area] [place] Comment on above: Average GFR for 20-2 9 years old: 116 mL/min/1.73sq m Chronic Kidney Disease: <60 mL/min/1.73sq m Kidney failure: <15 mL/min/1.73sq m eGFR calculated using average adult body mass. Additional eGFR calculator available at: http://www.[employer]/multiple_crcl_2012.htm Stage 1: Some kidney damage normal GFR Stage 2: Mild kidney damage GFR 60-89 Stage 3: Moderate kidney damage GFR 30-59 Stage 4: Severe kidney damage GFR 15-29 Stage 5: Severe kidney damage GFR <15 ESRD - chronic treatment by dialysis or transplant Drug Scr, Abuse, Uron 2017 Amphetamine(s),Ur Positive Abnormal NEG [facility] Comment on above: Result Comment: (Pos itive cutoff 1000 ng/mL) Performed By: #### D AU ####[address] [address] Barbiturate(s),Ur Negative Normal NEG [facility] Comment on above: Result Comment: (Pos itive cutoff 200 ng/mL) Performed By: #### D AU ####[address] [address] Base excess Negative Normal NEG [facility] Comment on above: Result Comment: (Pos itive cutoff 300 ng/mL) Performed By: #### D AU ####[address] [address] Benzodiazepine(s) Negative Normal NEG [facility] Comment on above: Result Comment: (Pos itive cutoff 200 ng/mL) Performed By: #### D AU ####[address] [address] Cannabinoid(s),Ur Negative Normal NEG [facility] Comment on above: Result Comment: (Pos itive cutoff 50 ng/mL) Performed By: #### D AU ####[address] [address] Interpretive Info Assay provides medical screening only. The absence of expected drug(s) and/or Normal [facility] Comment on above: Result Comment: meta bolite(s) may indicate diluted or adulterated urine, limitations of testing or timing of collection.Testing for legal purposes should be confirmed by another method. To request confirmation of test result, please call the lab within 7 days of sample submission.Performed at [address] [address] Performed By: #### D AU ####[address] [address] Opiate(s), Ur Negative Normal NEG [facility] Comment on above: Result Comment: (Pos itive cutoff 300 ng/mL) Performed By: #### D AU ####[address] [address] Oxycodone, Urine Negative Normal NEG [facility] Comment on above: Result Comment: (Pos itive cutoff 100 ng/mL) Performed By: #### D AU ####[address] [address] Phencyclidine, Ur Negative Normal NEG [facility] Comment on above: Result Comment: (Pos itive cutoff 25 ng/mL) Performed By: #### D AU ####[address] [address] Urine, methadone presence Negative Normal NEG [facility] Comment on above: Result Comment: (Pos itive cutoff 300 ng/mL) Performed By: #### D AU ####[address] [address] Buprenorphrine, Ur NOT REPORTED Normal NEG [facility] Comment on above: Performed By: #### D AU ####[address] [place] [address] MDMA, Urine NOT REPORTED Normal NEG [facility] Comment on above: Performed By: #### D AU ####[address] [place] [address] Methamphetamine, Ur NOT REPORTED Normal NEG [facility] Comment on above: Performed By: #### D AU ####[address] [address] Propoxyphene,Urine NOT REPORTED Normal NEG [facility] Comment on above: Performed By: #### D AU ####[facility] [place] [address] Urine, tricyclic antidepressants NOT REPORTED Normal NEG [facility] Comment on above: Performed By: #### D AU ####[address] [address] Lipid Profileon 11-05-2017 Cholesterol 137 mg/dL Normal <200 [facility] Comment on above: Result Comment: Chol esterol Guidelines: <200 Desirable 200-240 Borderline >240 Undesirable Performed By: #### L IPR ####[address] [address] Cholesterol to HDL Ratio 4.3 {ratio} Normal <5 [facility] Comment on above: Performed By: #### L IPR ####[facility] [place] [address] HDL Cholesterol 32 mg/dL Low >40 [facility] Comment on above: Result Comment: HDL Guidelines: <40 Undesirable 40-59 Borderline >59 Desirable Performed By: #### L IPR ####[address] [address] LDL Cholesterol 82 mg/dL Normal 0-130 [facility] Comment on above: Result Comment: LDL Guidelines: <100 Desirable 100-129 Near to/above Desirable 130-159 Borderline >159 UndesirableDirect (measured) LDL and calculated LDL are not interchangeable tests. Performed By: #### L IPR ####[address] [address] Triglyceride 113 mg/dL Normal <150 [facility] Comment on above: Result Comment: Trig lyceride Guidelines: <150 Desirable 150- 199 Borderline 200-499 High >499 Very high Based on AHA Guidelines for fasting triglyceride, June 2012.Performed at [facility] [address] [place] [address] Performed By: #### L IPR ####[facility] [place] [address] Cholesterol in VLDL mass conc NOT REPORTED Normal 10-16 [facility] Comment on above: Performed By: #### L IPR ####[facility] [place] [address] Encounters Encounter Date Encounter Type Care Provider Facility Start: 09-05-2023 End: 09-05-2023 ambulatory LUIS FELIPE HALL Not Available Start: 08-21-2023 End: 08-21-2023 ambulatory YOUSIF APARICIO Not Available Start: 08-01-2023 End: 08-01-2023 ambulatory LUIS FELIPE HALL Not Available Start: 12-21-2022 End: 12-21-2022 ambulatory IVAN CAMEJO . Facility:[facility] Start: 11-29-2022 End: 11-29-[address] RODO MENCHACA Facility:[facility] Start: 10-25-2022 [facility] Facility:[facility] Start: 10-11-2022 End: 10-11-[address] CHRISTINE SÁNCHEZ Facility:[facility] Start: 09-12-2022 End: 09-13-[address] YOUSIF APARICIO . Facility:[facility] Start: 08-19-2022 Encounter for preprocedural laboratory examination DR YOUSIF APARICIO . [facility] Start: 08-18-2022 End: 08-18-[address] YOUSIF APARICIO . Facility:[facility] Start: 08-16-2022 End: 08-17-[address] YOUSIF APARICIO . Facility:[facility] Start: 08-16-2022 End: 08-17-2022 Encounter for preprocedural laboratory examination DR YOUSIF APARICIO . Facility:[facility] Start: 08-14-2022 End: 08-15-2022 [facility] Facility:[facility] Start: 07-27-2022 End: 07-28-[address] YOUSIF APARICIO . Facility:[facility] Start: 07-09-2022 End: 07-09-[address] ELISEO HARDING Facility: Start: 12-12-2021 Telephone encounter King zee MD Work Phone: Hematology/Oncology Comment on above: Lab Orders Start: 10-28-2021 Chart abstracting King fleming MD Work Phone: Hematology/Oncology Start: 04-26-2020 End: 04-27-2020 Patient encounter procedure ANTHONY PABON [facility] Start: 04-26-2020 End: 04-26-2020 Subsequent hospital visit by physician Rochelle ALFR[facility] Start: 03-16-2020 End: 03-17-2020 Emergency department patient visit Lima [facility] Facility:[facility] Start: 11-20-2019 End: 11-21-2019 Patient encounter procedure [facility] Start: 11-20-2019 End: 11-20-2019 Subsequent hospital visit by physician Rochelle ALFR[facility] Comment on above: History of miscarria ge, currently ; Amenorrhea; Positive urine test; Encounter for supervision of normal in first trimester, unspecified ; Spotting in early Start: 06-19-2019 End: 06-20-2019 Patient encounter procedure [facility] Start: 06-19-2019 End: 06-19-2019 Subsequent hospital visit by physician Rochelle ALFR[facility] Comment on above: Amenorrhea; Positive urine test; Encounter for supervision of normal in first trimester, unspecified ; Spotting in early Start: 05-09-2019 End: 05-10-2019 Patient encounter procedure KADI DIXON [facility] Start: 05-09-2019 End: 05-09-2019 Subsequent hospital visit by physician Rochelle ALFR[facility] Start: 11-05-2017 End: 11-07-2017 Evaluation and management of inpatient ANGELO SPICER [facility] Procedures Date Procedure Procedure Detail Performing Clinician Start: 04-26-2020 Acute hepatitis panel D AWN DESTINY Start: 04-26-2020 Antibody hiv-1&hiv-2 single result KADI DESTINY Start: 04-26-2020 Blood count complete automated KADI DESTINY Start: 04-26-2020 Comprehensive metabo lic panel KADI DESTINY Start: 04-26-2020 Gonadotropin chorion ic qualitative KADI DESTINY Start: 04-26-2020 Iadna hepatitis c qu ant & reverse roller printer KADI DESTINY Start: 04-26-2020 Acute hepatitis panel [...] Work Phone: Start: 06-19-2019 Antibody screen Rochelle Hoy Start: 06-19-2019 Obstetric panel [facility] [...] Start: 11-05-2017 URINE DRUG SCREEN LUIS E SPICER Start: 11-05-2017 NURSING COMMUNICATION S VIKA SPICER Start: 11-05-2017 Lipid panel ANGELO BARRIOS ONCOLOGY RN Start: 11-05-2017 DIET GENERAL ANGELO ONCOLOGY RN Start: 11-05-2017 FULL CODE ANGELO ONCOLOGY RN Start: 11-05-2017 IP CONSULT TO HISTOR Y [...] deficiency anemia type Expected: 12/12/2021, Expires: 02/11/2022 [facility] Work Phone: Comment on above: Expected: 12/12/2021 , Expires: 02/11/2022 Start: 05-18-2021 Influenza vaccination INFLUENZA (#1) [facility] Start: 06-26-2020 Cervical cancer screen [facility]ervical [facility] [place] Comment on above: Postponed from 01/11 (Not Indicated) Start: 06-26-2020 Screening for malign ant neoplasm of cervix Cervical cancer screen [place] Comment on above: Postponed from 01/11 (Not Indicated) Start: 05-18-2020 Influenza vaccination Flu vaccine (# 1) [place] Start: 11-21-2019 End: 11-21-2019 Ancillary Procedure 11/21/2019 Ancillary Procedure Obstetrics and Gynecology [facility] Start: 06-26-2019 End: 06-26-2019 Routine 06/26/2019 Routine Obstetrics and Gynecology Georgette Leung APRN - [facility]RI[place] [address] [place] [address] [phone] [facility] [employer]RNA[employer] Start: 05-18-2019 Influenza vaccination Flu vaccine (# 1) [place], [place] Start: 2015 Cervical cancer screen Cervical canc er screen [place] Start: 2015 PAP TESTING PAP TESTING [facility] Start: 2013 DTaP/Tdap/Td vaccine (1 - Tdap) DTaP/Tdap/Td vaccine (1 - Tdap) [place] Start: 2013 Urine microalbumin profile DTAP,TDAP,TD (1 - Tdap) [facility] Start: 01-12-2012 HEPATITIS C SCREENING HEPATITIS C SC REENING [facility] Start: 01-12-2012 HIV SCREENING HIV SCREENING [facility] Start: 2009 HPV vaccine (1 - Fem larissa 3-dose series) HPV vaccine (1 - Female 3-dose series) [place] Start: 2007 Varicella Vaccine (1 of 2 - 13+ 2-dose series) Varicella Vaccine (1 of 2 - 13+ 2-dose series) [place] Start: 2006 Adult depression screening assessment DEPRESSION SCREENING [facility] Start: 2005 DTaP/Tdap/Td vaccine (1 - Tdap) DTaP/Tdap/Td vaccine (1 - Tdap) [place] Start: 2005 HPV vaccine (1 - 2-d ose series) HPV vaccine (1 - 2-dose series) [place] Start: 2005 HPV vaccine (1 - Fem larissa 2-dose series) HPV vaccine (1 - Female 2-dose series) [place] Start: 01-12-2000 Pneumococcal 0-64 ye ars Vaccine (1 of 1 - PPSV23) Pneumococcal 0-64 years Vaccine (1 of 1 - PPSV23) [place] Start: 1999 COVID-19 VACCINE (1) COVID-19 VACCIN E (1) [facility] Start: 1995 Varicella vaccine (1 of 2 - 2-dose childhood series) Varicella vaccine (1 of 2 - 2-dose childhood series) [place] End: 11-20-2019 Bacteria identified Cx Nom (U) Urine Culture Microbiology Routine Amenorrhea Positive urine test Encounter for supervision of normal in first trimester, unspecified 1 Occurrences starting 11/20/2019 until 11/20/2019 [place], [place] Comment on above: 1 Occurrences starti ng 11/20/2019 until 11/20/2019 Bacteria identified Cx Nom (U) [place], [place] End: 06-19-2019 Bacteria identified Cx Nom (U) Urine Culture Microbiology Routine Amenorrhea Positive urine test Encounter for supervision of normal in first trimester, unspecified 1 Occurrences starting 06/19/2019 until 06/19/2019 [place] Comment on above: 1 Occurrences starti ng 06/19/2019 until 06/19/2019 End: 11-20-2019 C.trachomatis N.gonorrhoeae DNA, Urine C.trachomatis N.gonorrhoeae DNA, Urine Microbiology Routine Amenorrhea Positive urine test Encounter for supervision of normal in first trimester, unspecified 1 Occurrences starting 11/20/2019 until 11/20/2019 [place], [place] Comment on above: 1 Occurrences starti ng 11/20/2019 until 11/20/2019 C.trachomatis N.gonorrhoeae DNA, Urine [place] End: 06-19-2019 C.trachomatis N.gonorrhoeae DNA, Urine C.trachomatis N.gonorrhoeae DNA, Urine Microbiology Routine Amenorrhea Positive urine test Encounter for supervision of normal in first trimester, unspecified 1 Occurrences starting 06/19/2019 until 06/19/2019 [place] Comment on above: 1 Occurrences starti ng 06/19/2019 until 06/19/2019 End: 04-26-2020 Hepatitis C RNA, quantitative, PCR Hepatitis C RNA, quantitative, PCR Lab Routine Once for 1 Occurrences starting 04/26/2020 until 04/26/2020 [place] Comment on above: Once for 1 Occurrenc es starting 04/26/2020 until 04/26/2020 Hepatitis C RNA, quantitative, PCR Hepatitis C RNA, quantitative, PCR Lab Routine 04/26/2020 7:30 AM EDT [place], [place] End: 05-09-2019 HIV Screen HIV Screen Lab Routine Once for 1 Occurrences starting 05/09/2019 until 05/09/2019 [place] Comment on above: Once for 1 Occurrenc es starting 05/09/2019 until 05/09/2019 HIV Screen HIV Screen Lab R outine 05/09/2019 2:53 PM EDT [facility] Routine Amenorrhea Positive urine test Encounter for supervision of normal in first trimester, unspecified 11/20/2019 12:26 PM EST [facility] Payers Date Payer Category Payer Medicaid [employer] [employer] [employer] [id number] 2020-Present [phone] [address] [place], [place] [id number] Medicaid [id number] 2020 Unknown 2016 Unknown [facility] PLAN [facility] xxxxxxxxxxxx 2016-Present [phone] [address] [place] [id number] xxxxxxxxxxxx [id number] 1994 Unknown [id number] 2.840.1.587782.3.579.2.196 1994 Unknown [id number] 2.16.840.1.850135.3.579.2.173 1994 Unknown [id number] 2.16.840.1.416712.3.579.2.173 1994 Unknown [id number] 2.16.840.1.912172.3.579.2.173 1994 Unknown [id number] 2.16.840.1.403319.3.579.2.173 1994 Unknown [id number] 2.16.840.1.321448.3.579.2.593 1994 Unknown [id number] 2.16840.1.770019.3.579.2.593 1994 Unknown [id number] 2.16.840.1.034759.3.579.2.593 1994 Unknown [id number] 2.16.840.1.087883.3.579.2.593 1994 Unknown [id number] 2.16.840.1.250477.3.579.2.593 1994 Unknown [id number] 2.16.840.1.387487.3.579.2.593 1994 Unknown [id number] 2.16.840.1.308621.3.579.2.593 1994 Unknown [id number] 2.16.840.1.750001.3.579.2.593 1994 Unknown [id number] 2.16.840.1.719776.3.579.2.593 1994 Unknown [id number] 2.16.840.1.502783.3.579.2.593 1994 Unknown [id number] 2.16.840.1.868829.3.579.2.125 9 1994 Unknown [id number] 2.16.840.1.009665.3.579.2.125 9 1994 Unknown [id number] 2.16.840.1.479815.3.579.2.125 9 1959 Unknown [id number] Social History Date Type Detail Facility Start: 11-05-2017 End: 10-28-2021 Tobacco smoking status NHIS Never smoker [facility] Start: 11-05-2017 End: 06-19-2019 Alcohol intake No [place], [place] Start: 1995 Sex Assigned At Not on file [place] Start: 06-19-2019 End: 11-20-2019 Tobacco smoking status NHIS Current every day smoker [place], [place] Start: 06-19-2019 End: 11-20-2019 Cigarettes smoked current (pack per day) - Reported [facility] Start: 11-20-2019 Alcohol intake Current non-dr form maker of alcohol (finding) [facility] Start: 05-01-2019 [facility] Start: 11-20-2019 End: 10-28-2021 Tobacco use and exposure Never used [facility] Start: 10-28-2021 End: 11-08-2021 Alcohol intake Ex-drinker (finding) [facility] Clinical Note 08-18-2022 Note Date & Type Note Facility 08-18-2022 Note OPERATIVE NOTE OPERATION DATE: 08/18/2022 PROCEDURE: Suction D AND C. PREOPERATIVE DIAGNOSIS: Missed . POSTOPERATIVE DIAGNOSIS: Missed . ANESTHESIA: General. SURGEON: Yousif Aparicio D.O. POULTRY SEXER: None. BLOOD LOSS: 75 mL. URINE OUTPUT: [...] products of conception were removed using a 10-Lao suction curette. Excellent hemostasis was noted. The patient tolerated the procedure well. Sponge, lap, and needle counts were correct x 2. All instruments were then removed from the patient's vagina. The patient was taken to the Recovery Room in stable condition. ?? [facility] Note 12-12-2021 Telephone Encounter - Angelia Almazan - 12/12/2021 11:16 AM EDT Note Date & Type Note Facility 12-12-2021 Miscellaneous Notes Pleases sign pending new cbc order. Thanks, Angelia Almazan MA documented in this encounter [facility] Progress note 11-08-2021 Note Date & Type Note Facility 11-08-2021 Note HNO ID: [id number] Author: King Suazo MD Service: ? Author [...] shortness of breath, and is seen at [facility] emergency [facility]. Labs revealed a hemoglobin of [...] biceps/brachioradial/patella/achilles. MUSCULOSKELETAL: Neg (more content not included)... 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 Advance Directives and Living Will Power of Drupal Web Developer Latest Code Status on File Code Status [...] section and content) DATE CREATED AUTHOR 03/08/2018 [facility] DATE CREATED AUTHOR AUTHOR'S ORGANIZ ATION 04/08/2020 [facility] DATE CREATED AUTHOR AUTHOR'S ORGANIZ ATION 04/28/2020 [facility] DATE CREATED AUTHOR AUTHOR'S ORGANIZ ATION 12/13/2021 [place] DATE CREATED AUTHOR AUTHOR'S ORGANIZ ATION 12/25/2022 [facility] DATE CREATED AUTHOR AUTHOR'S ORGANIZ ATION 09/07/2023 [facility] EPIC Source Comments (unrecognize d section and content) In the event this informatio n is protected by the Federal Confidentiality of Alcohol and Drug Abuse Patient Records regulations: The Federal rules restrict any use of the information to criminally investigate or prosecute any alcohol or drug abuse patient.[facility] event this information is protected by the Federal Confidentiality of Alcohol and Drug Abuse Patient Records regulations: The Federal rules restrict any use of the information to criminally investigate or prosecute any alcohol or drug abuse patient.[facility] Reason for Visit (unrecogniz ed section and content) Reason Comments Lab Orders Care Teams (unrecognized sec tion and content) 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 [employer] [facility]. provides no warranty or guarantee of the accuracy or completeness of information in this document.
[2023-09-07 17:51] VITALS: BP 108/63; PULSE 96
[2023-09-07 17:56] VITALS: TEMP 35.7; TEMP 36.2
== END 2023-09-07 18:25 | disposition home or self-care (01) ==
LOC: US 07:59 → FBC 17:07
PROVIDERS: Visit Provider Obstetrics & Gynecology
DX: O41.03X1 Oligohydramnios, third trimester, fetus 1 (principal); Z3A.30 30 weeks gestation of pregnancy
CPT/HCPCS: 59025; 76818

== ENCOUNTER 2023-09-11 07:54 | Outpatient (OUT) | payer OTHER, SELFPAY ==
--- NOTE | 2023-09-11 14:03 | US_ITS ---
The [address] [address] Patient Name: NOE ERVIN MRN: [facility]:[id number] date: 1995 Sex: F Assigned Patient Location: [facility] Current Patient Location: [facility] Accession/Order Number: [id number] Exam Date: 09/11/2023 14:10 Report Date: 09/11/2023 15:06 At the request of: SHON BUSTAMANTE Procedure: US OB BPP w non-stress Ultrasound biophysical profile CLINICAL: Evaluate well-being. 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 FINDINGS: Comparison: 09/07/2023 FETUS: There is a single living intrauterine fetus in vertex presentation. heart rate of 138 beats per minute. AMNIOTIC FLUID: The amniotic fluid index is 12.00 cm, with maximum vertical pocket of 3.76 cm. BIOPHYSICAL PROFILE: motion: 2 out of 2. tone: 2 out of 2. breathin out of 2. Amniotic fluid volume: 2 out of 2. Total score: 8 out of 8. OTHER FINDINGS: None. US/US OB BPP w non-stress IMPRESSION: 1. Single viable fetus in vertex presentation with heart rate of 138 beats per minute. 2. Total biophysical profile score of 8 out of 8. 3. Amniotic fluid index of 12.00 cm, with maximum vertical pocket of 3.76 cm. Amniotic fluid index on study 09/07/2023 was 11.16 cm. Electronically authenticated by: BRITTNEY FERNANDEZ Date: 09/11/2023 15:06
[2023-09-11 14:48] VITALS: BP 107/60; PULSE 102
== END 2023-09-11 15:10 | disposition home or self-care (01) ==
LOC: FBCO 07:54 → FBC 14:02
PROVIDERS: Visit Provider Obstetrics & Gynecology
DX: O41.03X1 Oligohydramnios, third trimester, fetus 1 (principal)
CPT/HCPCS: 76818

== ENCOUNTER 2023-09-14 07:19 | Outpatient (OUT) | payer OTHER, SELFPAY ==
--- OUTSIDE RECORDS SUMMARY | 2023-09-14 07:23 | XMS_ITS | CCD ---
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 Primary Care Unavaila ble GRECHNY ., ADELITA ORELLANA Consulting Unavailluis CAMARILLO, MYLES Alex Consulting Unavailable GAYE, GURU Consulting Unavailable ALFREDDOYOSEPH, ALIX Consulting Unavailable LINA, KAMILLA Consulting Unavailable SISTER, DANIELA Consulting Unavailable ROBBY ., DR MENENDEZ Consulting Unavailable [facility] Primary Care Unavaila ble ROBBY ., DR MENENDEZ Attending Unavailable ROBBY ., DR MENENDEZ Admitting Unavailable ELENITA, NGOC Consulting Unavailable GEMBUS, AUGUSTUS Consulting Unavailable [facility] Primary Care Unavaila ble ROBBY ., DR MENENDEZ Consulting Unavailable ROBBY ., DR MENENDEZ Attending Unavailable ROBBY ., DR MENENDEZ Admitting Unavailable ZIEBER, DR CHRISTINE Benites Consulting Unavailable ROBBY ., DR MENENDEZ Consulting Unavailable 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 Hemanth Kerr CBC AUTO DIFFon 11-29-2022 BASO # 0.0 103/ul Normal 0.0-0.1 [facility] Comment on above: Performed By: #### C BC #### [facility] [address] [address] [address] Hemanth Kerr Basophils/100 WBC (Bld) 0.7 % Normal 0.2-2.0 [facility] Comment on above: Performed By: #### C BC #### [facility] [address] [address] [address] Hemanth Kerr EO # 0.2 103/ul Normal 0.0-0.7 [facility] Comment on above: Performed By: #### C BC #### [facility] [address] [address] [address] Hemanth Kerr Eosinophils/100 WBC (Bld) 3.3 % Normal 0.9-7.0 [facility] Comment on above: Performed By: #### C BC #### [facility] [address] [place] [address] Dr. Hemanth Kerr Erythrocyte distribution width (RBC) [Ratio] 14.3 % Normal 11.0-15.0 [facility] Comment on above: Performed By: #### C BC #### [facility] [address] [place] [address] Dr. Hemanth Kerr Hematocrit (Bld) [Volume fraction] 37.2 % Normal 36.0-48.0 [facility] Comment on above: Performed By: #### C BC #### [facility] [address] [place] [address] Dr. Hemanth Kerr Hemoglobin (Bld) [Mass/Vol] 11.9 g/dL Critically low 12.0-16.0 [facility] Comment on above: Performed By: #### C BC #### [facility] [address] [place] [address] Dr. Hemanth Kerr IG # 0.01 10e3/ul Normal 0.00-0.03 [facility] Comment on above: Performed By: #### C BC #### [facility] [address] [address] [address] Hemanth Kerr IG % 0.2 % Normal 0.0-0.5 [facility] Comment on above: Performed By: #### C BC #### [facility] [address] [place] [address] Dr. Hemanth Kerr LYMPH # 1.7 103/ul Normal 1.2-3.8 [facility] Comment on above: Performed By: #### C BC #### [facility] [address] [place] [address] Dr. Hemanth Kerr Lymphocytes/100 WBC (Bld) 31.3 % Normal 20.5-60.0 [facility] Comment on above: Performed By: #### C BC #### [facility] [address] [place] [address] Dr. Hemanth Kerr MANUAL DIFF REQ NO Normal [facility] Comment on above: Performed By: #### C BC #### [facility] [address] [place] [address] Dr. Hemanth Kerr MCH (RBC) [Entitic mass] 27.8 pg Normal 26.7-34.0 [facility] Comment on above: Performed By: #### C BC #### [facility] [address] [place] [address] Dr. Hemanth Kerr MCHC (RBC) [Mass/Vol] 32.0 g/dL Normal 29.9-35.2 [facility] Comment on above: Performed By: #### C BC #### [facility] [address] [place] [address] Dr. Hemanth Kerr MCV (RBC) [Entitic vol] 86.9 fL Normal 81.0-99.0 [facility] Comment on above: Performed By: #### C BC #### [facility] [address] [place] [address] Dr. Hemanth Kerr MONO # 0.4 103/ul Normal 0.3-0.8 [facility] Comment on above: Performed By: #### C BC #### [facility] [address] [place] [address] Dr. Hemanth Kerr Monocytes/100 WBC (Bld) 8.0 % Normal 1.7-12.0 [facility] Comment on above: Performed By: #### C BC #### [facility] [address] [place] [address] Dr. Hemanth Kerr NEUT # 3.1 103/ul Normal 1.4-6.5 [facility] Comment on above: Performed By: #### C BC #### [facility] [address] [place] [address] Dr. Hemanth Kerr Neutrophils/100 WBC (Bld) 56.5 % Normal 43.0-75.0 [facility] Comment on above: Performed By: #### C BC #### [facility] [address] [place] [address] Dr. Hemanth Kerr Platelet mean volume (Bld) [Entitic vol] 10.3 fL Normal 9.5-13.5 [facility] Comment on above: Performed By: #### C BC #### [facility] [address] [place] [address] Dr. Hemanth Kerr PLT 258 103/ul Normal 150-450 [facility] Comment on above: Performed By: #### C BC #### [facility] [address] [place] [address] Dr. Hemanth Kerr RBC 4.28 106/ul Normal 4.20-5.40 [facility] Comment on above: Performed By: #### C BC #### [facility] [address] [place] [address] Dr. Hemanth Kerr WBC 5.4 103/ul Normal 4.0-11.0 [facility] Comment on above: Performed By: #### C BC #### [facility] [address] [place] [address] Dr. Hemanth Kerr PROF 14(COMP METB)on 023 Albumin [Mass/Vol] 3.1 g/dL Critically low 3.4-5.0 [facility] Comment on above: Performed By: #### C MP #### [facility] [address] [place] [address] Dr. Hemanth Kerr Albumin/Globulin [Mass ratio] 1.3 {ratio} Normal [facility] Comment on above: Performed By: #### C MP #### [facility] [address] [address] [address] Hemanth Kerr ALP [Catalytic activity/Vol] 56 U/L Normal 46-116 [facility] Comment on above: Performed By: #### C MP #### [facility] [address] [address] [address] Hemanth Kerr ALT [Catalytic activity/Vol] 34 U/L Normal 14-59 [facility] Comment on above: Performed By: #### C MP #### [facility] [address] [place] [address] Dr. Hemanth Kerr Anion gap [Moles/Vol] 7.0 mmol/L Normal [facility] Comment on above: Performed By: #### C MP #### [facility] [address] [place] [address] Dr. Hemanth Kerr AST [Catalytic activity/Vol] 29 U/L Normal 15-37 [facility] Comment on above: Performed By: #### C MP #### [facility] [address] [place] [address] Dr. Hemanth Kerr Bilirubin [Mass/Vol] 0.4 mg/dL Normal 0.2-1.0 [facility] Comment on above: Performed By: #### C MP #### [facility] [address] [place] [address] Dr. Hemanth Kerr Calcium [Mass/Vol] 8.3 mg/dL Critically low 8.5-10.1 [facility] Comment on above: Performed By: #### C MP #### [facility] [address] [place] [address] Dr. Hemanth Kerr Chloride [Moles/Vol] 110 mmol/L Critically high 98-107 [facility] Comment on above: Performed By: #### C MP #### [facility] [address] [place] [address] Dr. Hemanth Kerr CO2 [Moles/Vol] 27.6 mmol/L Normal 21.0-32.0 [facility] Comment on above: Performed By: #### C MP #### [facility] [address] [place] [address] Dr. Hemanth Kerr Creatinine [Mass/Vol] 0.61 mg/dL Normal 0.55-1.02 [facility] Comment on above: Performed By: #### C MP #### [facility] [address] [address] [address] Hemanth Kerr EGFR-AF LIBERIAN >60 Normal >=60 [facility] Comment on above: Performed By: #### C MP #### [facility] [address] [address] [address] Hemanth Kerr EGFR-NON AF LIBERIAN >60 Normal >=60 [facility] Comment on above: Performed By: #### C MP #### [facility] [address] [address] [address] Hemanth Kerr Globulin (S) [Mass/Vol] 2.4 g/dL Normal [facility] Comment on above: Performed By: #### C MP #### [facility] [address] [place] [address] Dr. Hemanth Kerr Glucose [Mass/Vol] 110 mg/dL Critically high 74-106 [facility] Comment on above: Performed By: #### C MP #### [facility] [address] [address] [address] Hemanth Kerr Potassium [Moles/Vol] 2.6 mmol/L Critically low 3.5-5.1 [facility] Comment on above: Performed By: #### C MP #### [facility] [address] [place] [address] Dr. Hemanth Kerr Protein [Mass/Vol] 5.5 g/dL Critically low 6.4-8.2 [facility] Comment on above: Performed By: #### C MP #### [facility] [address] [address] [address] Hemanth Kerr Sodium [Moles/Vol] 142 mmol/L Normal 136-145 [facility] Comment on above: Performed By: #### C MP #### [facility] [address] [place] [address] Dr. Hemanth Kerr Urea nitrogen [Mass/Vol] 12.0 mg/dL Normal 7.0-18.0 [facility] Comment on above: Performed By: #### C MP #### [facility] [address] [address] [address] Hemanth Kerr Urea nitrogen/Creatinine [Mass ratio] 19.7 mg/mg Normal [facility] Comment on above: Performed By: #### C MP #### [facility] [address] [address] [address] Hemanth Kerr XR HIP LT 2 [...] ALIX GRANADOS Date: 2022-11-28 22:13 Normal [facility] ACETAMINOPHENon 11-28-2022 Acetaminophen [Mass/Vol] ug/mL Critically low 10.0-30.0 [facility] Comment on above: Performed By: #### C MP #### [facility] [address] [address] [address] Hemanth Kerr ACETONE SERUMon 11-28-2022 ACETONE Negative Normal NEGATIVE [facility] Comment on above: Performed By: #### P REG #### [facility] [address] [address] [address] Hemanth Kerr AMMONIAon 11-28-2022 Ammonia (P) [Moles/Vol] 24 umol/L Normal 11-32 [facility] Comment on above: Performed By: #### L ACT #### [facility] [address] [address] [address] Hemanth Kerr CBC AUTO DIFFon 11-28-2022 BASO # 0.0 103/ul Normal 0.0-0.1 [facility] Comment on above: Performed By: #### L ACT #### [facility] [address] [address] [address] Hemanth Kerr Basophils/100 WBC (Bld) 0.4 % Normal 0.2-2.0 [facility] Comment on above: Performed By: #### L ACT #### [facility] [address] [place] [address] Dr. Hemanth Kerr EO # 0.3 103/ul Normal 0.0-0.7 [facility] Comment on above: Performed By: #### L ACT #### [facility] [address] [place] [address] Dr. Hemanth Kerr Eosinophils/100 WBC (Bld) 3.1 % Normal 0.9-7.0 [facility] Comment on above: Performed By: #### L ACT #### [facility] [address] [place] [address] Dr. Hemanth Kerr Erythrocyte distribution width (RBC) [Ratio] 14.3 % Normal 11.0-15.0 [facility] Comment on above: Performed By: #### L ACT #### [facility] [address] [place] [address] Dr. Hemanth Kerr Hematocrit (Bld) [Volume fraction] 41.3 % Normal 36.0-48.0 [facility] Comment on above: Performed By: #### L ACT #### [facility] [address] [place] [address] Dr. Hemanth Kerr Hemoglobin (Bld) [Mass/Vol] 13.3 g/dL Normal 12.0-16.0 [facility] Comment on above: Performed By: #### L ACT #### [facility] [address] [place] [address] Dr. Hemanth Kerr IG # 0.02 10e3/ul Normal 0.00-0.03 [facility] Comment on above: Performed By: #### L ACT #### [facility] [address] [place] [address] Dr. Hemanth Kerr IG % 0.2 % Normal 0.0-0.5 [facility] Comment on above: Performed By: #### L ACT #### [facility] [address] [place] [address] Dr. Hemanth eKrr LYMPH # 2.4 103/ul Normal 1.2-3.8 [facility] Comment on above: Performed By: #### L ACT #### [facility] [address] [place] [address] Dr. Hemanth Kerr Lymphocytes/100 WBC (Bld) 26.3 % Normal 20.5-60.0 [facility] Comment on above: Performed By: #### L ACT #### [facility] [address] [place] [address] Dr. Hemanth Kerr MANUAL DIFF REQ NO Normal [facility] Comment on above: Performed By: #### L ACT #### [facility] [address] [place] [address] Dr. Hemanth Kerr MCH (RBC) [Entitic mass] 27.4 pg Normal 26.7-34.0 [facility] Comment on above: Performed By: #### L ACT #### [facility] [address] [place] [address] Dr. Hemanth Kerr MCHC (RBC) [Mass/Vol] 32.2 g/dL Normal 29.9-35.2 [facility] Comment on above: Performed By: #### L ACT #### [facility] [address] [place] [address] Dr. Hemanth Kerr MCV (RBC) [Entitic vol] 85.0 fL Normal 81.0-99.0 [facility] Comment on above: Performed By: #### L ACT #### [facility] [address] [place] [address] Dr. Hemanth Kerr MONO # 0.7 103/ul Normal 0.3-0.8 [facility] Comment on above: Performed By: #### L ACT #### [facility] [address] [place] [address] Dr. Hemanth Kerr Monocytes/100 WBC (Bld) 7.3 % Normal 1.7-12.0 [facility] Comment on above: Performed By: #### L ACT #### [facility] [address] [place] [address] Dr. Hemanth Kerr NEUT # 5.7 103/ul Normal 1.4-6.5 [facility] Comment on above: Performed By: #### L ACT #### [facility] [address] [address] [address] Hemanth Kerr Neutrophils/100 WBC (Bld) 62.7 % Normal 43.0-75.0 [facility] Comment on above: Performed By: #### L ACT #### [facility] [address] [address] [address] Hemanth Kerr Platelet mean volume (Bld) [Entitic vol] 10.6 fL Normal 9.5-13.5 [facility] Comment on above: Performed By: #### L ACT #### [facility] [address] [place] [address] Dr. Hemanth Kerr PLT 347 103/ul Normal 150-450 [facility] Comment on above: Performed By: #### L ACT #### [facility] [address] [place] [address] Dr. Hemanth Kerr RBC 4.86 106/ul Normal 4.20-5.40 [facility] Comment on above: Performed By: #### L ACT #### [facility] [address] [place] [address] Dr. Hemanth Kerr WBC 9.1 103/ul Normal 4.0-11.0 [facility] Comment on above: Performed By: #### L ACT #### [facility] [address] [place] [address] CSPINE WO CONon [...] KAMILLA MILLS Date: 2022-11-28 17:54 Normal [facility] CT HEAD WO CONon 11-28-2022 CT [...] KAMILLA MILLS Date: 2022-11-28 18:40 Normal [facility] CULTURE BLOODon 11-28-2022 Microscopic examination of blood, culture Culture Observations: NO GROWTH AT 5 DAYS. Normal [facility] Comment on above: Performed By: #### C BC #### [facility] [address] [address] [address] Hemanth Kerr Microscopic examination of blood, culture Culture Observations: NO GROWTH AT 5 DAYS. Normal [facility] Comment on above: Performed By: #### B [id number] #### [facility] [address] [place] [address] Dr. Hemanth Kerr Covid-19 PCR ([facility])on 11-15 SARS-CoV-2 (COVID-19) RNA ELMO+probe Ql (Unsp spec) Not detected Normal NOT DETECTED [facility] Comment on above: Result Comment: When [...] for this test is supported by the [place] of Health and Human Service's declaration that [...] used). Performed By: #### L ACT #### [facility] [address] [place] [address] Dr. Hemanth Kerr DRUG SCREEN RAPID (URINE)on 11-28-2022 AMP Positive Abnormal NEGATIVE [facility] Comment on above: Performed By: #### P REG #### [facility] [address] [place] [address] Dr. Hemanth Kerr BAR Negative Normal NEGATIVE [facility] Comment on above: Performed By: #### P REG #### [facility] [address] [place] [address] Dr. Hemanth Kerr BUP Negative Normal NEGATIVE [facility] Comment on above: Performed By: #### P REG #### [facility] [address] [place] [address] Dr. Hemanth Kerr BZO Negative Normal NEGATIVE [facility] Comment on above: Performed By: #### P REG #### [facility] [address] [place] [address] Dr. Hemanth Kerr YOLANDA Negative Normal NEGATIVE [facility] Comment on above: Performed By: #### P REG #### [facility] [address] [place] [address] Dr. Hemanth Kerr CUT-OFFS SEE BELOW Normal [facility] Comment on above: Result Comment: AMP (Amphetamine): 500ng/mL, BAR (Barbituates): 200 ng/mL, BZO (Benzodiazepines): 150 ng/mL, BUP (Buprenorphine): 10 ng/mL, YOLANDA (Cocaine): 150 ng/mL, mAMP (Methamphetamine): 500 ng/mL, MTD (Methadone): 200 ng/mL, OPI (Opiates): 100 ng/mL, OXY (Oxycodone): 100 ng/mL, PCP (Phencyclidine): 25 ng/mL, PPX (Propoxyphene): 300 ng/mL, THC (Cannabinoids): 50 ng/mL, TCA (Trycyclic Antidepressants): 300 ng/mL Performed By: #### P REG #### [facility] [address] [place] [address] Dr. Hemanth Kerr DRUG CUT HEADER DRUG CLASS TEST SYSTEM CUT-OFF CONCENTRATIONS ARE FOLLOWS: Normal [facility] Comment on above: Performed By: #### P REG #### [facility] [address] [place] [address] Dr. Hemanth Kerr mAMP Positive Abnormal NEGATIVE [facility] Comment on above: Performed By: #### P REG #### [facility] [address] [place] [address] Dr. Hemanth Kerr MTD Negative Normal NEGATIVE [facility] Comment on above: Performed By: #### P REG #### [facility] [address] [place] [address] Dr. Hemanth Kerr OPI Negative Normal NEGATIVE [facility] Comment on above: Performed By: #### P REG #### [facility] [address] [place] [address] Dr. Hemanth Kerr OXY Negative Normal NEGATIVE [facility] Comment on above: Performed By: #### P REG #### [facility] [address] [place] [address] Dr. Hemanth Kerr PCP Negative Normal NEGATIVE [facility] Comment on above: Performed By: #### P REG #### [facility] [address] [place] [address] Dr. Hemanth Kerr PPX Negative Normal NEGATIVE [facility] Comment on above: Performed By: #### P REG #### [facility] [address] [address] [address] Hemanth Kerr TCA Negative Normal NEGATIVE [facility] Comment on above: Performed By: #### P REG #### [facility] [address] [place] [address] Dr. Hemanth Kerr THC Negative Normal NEGATIVE [facility] Comment on above: Performed By: #### P REG #### [facility] [address] [place] [address] Dr. Hemanth Kerr ER URINE PROFILEon 3 Bilirubin Ql (U) Negative Normal NEGATIVE [facility] Comment on above: Performed By: #### P REG #### [facility] [address] [place] [address] Dr. Hemanth Kerr Clarity (U) CLEAR Normal CLEAR [facility] Comment on above: Performed By: #### P REG #### [facility] [address] [place] [address] Dr. Hemanth Kerr Color (U) LT. YELLOW Normal YELLOW [facility] Comment on above: Performed By: #### P REG #### [facility] [address] [place] [address] Dr. Hemanth Kerr ERUAbi A micrscopic examination will be performed if indicated. Normal [facility] Comment on above: Performed By: #### P REG #### [facility] [address] [place] [address] Dr. Hemanth Kerr Glucose Ql (U) Negative Normal NEGATIVE [facility] Comment on above: Performed By: #### P REG #### [facility] [address] [place] [address] Dr. Hemanth Kerr Hemoglobin Ql (U) Negative Normal NEGATIVE [facility] Comment on above: Performed By: #### P REG #### [facility] [address] [place] [address] Dr. Hemanth Kerr Ketones Ql (U) Negative Normal NEGATIVE [facility] Comment on above: Performed By: #### P REG #### [facility] [address] [place] [address] Dr. Hemanth Kerr LEUKOCYTES Negative Normal NEGATIVE [facility] Comment on above: Performed By: #### P REG #### [facility] [address] [place] [address] Dr. Hemanth Kerr Nitrite Ql (U) Positive Abnormal NEGATIVE [facility] Comment on above: Performed By: #### P REG #### [facility] [address] [place] [address] Dr. Hemanth Kerr pH (U) 7.5 [pH] Normal 5-9 [facility] Comment on above: Performed By: #### P REG #### [facility] [address] [place] [address] Dr. Hemanth Kerr SPEC GRAVITY 1.020 Normal 1.005-<=1.025 [facility] Comment on above: Performed By: #### P REG #### [facility] [address] [place] [address] Dr. Hemanth Kerr UA PROTEIN TRACE Normal NEGATIVE/ TRACE [facility] Comment on above: Performed By: #### P REG #### [facility] [address] [place] [address] Dr. Hemanth Kerr UR MICRO IND INDICATED Normal [facility] Comment on above: Performed By: #### P REG #### [facility] [address] [place] [address] Dr. Hemanth Kerr Urobilinogen Qn (U) 1.0 {Jose'U}/dL Normal 0.2 - 1. 0 [facility] Comment on above: Performed By: #### P REG #### [facility] [address] [place] [address] Dr. Hemanth Kerr ETHANOL (BLD ALC)on 11-29-19 23 ALC NOTE NOTE: 80 mg/dl is th e legal limit for a blood alcohol level Normal [facility] Comment on above: Performed By: #### C MP #### [facility] [address] [place] [address] Dr. Hemanth Kerr Ethanol [Mass/Vol] mg/dL Normal [facility] Comment on above: Performed By: #### C MP #### [facility] [address] [place] [address] Dr. Hemanth Kerr LACTATE/LACTIC ACIDon 2022 Lactate [Moles/Vol] 0.7 mmol/L Normal 0.4-2.0 [facility] Comment on above: Performed By: #### L ACT #### [facility] [address] [address] [address] Hemanth Kerr Lactate [Moles/Vol] 9.0 mmol/L Critically high 0.4-2.0 [facility] Comment on above: Performed By: #### L ACT #### [facility] [address] [address] [address] Hemanth Kerr PH VENOUS BLOODon 11-28-2022 PCO2 VENOUS 36.6 mmHg Critically low 40.0-52.0 [facility] Comment on above: Performed By: #### P HVEN #### [facility] [address] [place] [address] Dr. Hemanth Kerr pH VENOUS 7.354 Normal 7.330-7.430 [facility] Comment on above: Performed By: #### P HVEN #### [facility] [address] [place] [address] Dr. Hemanth Kerr POINT OF CARE GLUCOSEon 11-15 Glucose [Mass/Vol] 127 mg/dL Critically high 74-106 [facility] Comment on above: Performed By: #### C BC #### [facility] [address] [place] [address] Dr. Hemanth Kerr PREG HCG QUALon 11-28-2022 , QUAL Negative Normal NEGATIVE [facility] Comment on above: Performed By: #### P REG #### [facility] [address] [place] [address] Dr. Hemanth Kerr PROF 14(COMP METB)on 023 Albumin [Mass/Vol] 3.7 g/dL Normal 3.4-5.0 [facility] Comment on above: Performed By: #### L ACT #### [facility] [address] [place] [address] Dr. Hemanth Kerr Albumin/Globulin [Mass ratio] 1.3 {ratio} Normal [facility] Comment on above: Performed By: #### L ACT #### [facility] [address] [address] [address] Hemanth Kerr ALP [Catalytic activity/Vol] 72 U/L Normal 46-116 [facility] Comment on above: Performed By: #### L ACT #### [facility] [address] [address] [address] Hemanth Kerr ALT [Catalytic activity/Vol] 42 U/L Normal 14-59 [facility] Comment on above: Performed By: #### L ACT #### [facility] [address] [address] [address] Hemanth Kerr Anion gap [Moles/Vol] 16.3 mmol/L Normal [facility] Comment on above: Performed By: #### L ACT #### [facility] [address] [place] [address] Dr. Hemanth Kerr AST [Catalytic activity/Vol] 45 U/L Critically high 15-37 [facility] Comment on above: Performed By: #### L ACT #### [facility] [address] [place] [address] Dr. Hemanth Kerr Bilirubin [Mass/Vol] 0.4 mg/dL Normal 0.2-1.0 [facility] Comment on above: Performed By: #### L ACT #### [facility] [address] [place] [address] Dr. Hemanth Kerr Calcium [Mass/Vol] 8.8 mg/dL Normal 8.5-10.1 [facility] Comment on above: Performed By: #### L ACT #### [facility] [address] [place] [address] Dr. Hemanth Kerr Chloride [Moles/Vol] 107 mmol/L Normal 98-107 [facility] Comment on above: Performed By: #### L ACT #### [facility] [address] [address] [address] Hemanth Kerr CO2 [Moles/Vol] 21.8 mmol/L Normal 21.0-32.0 [facility] Comment on above: Performed By: #### L ACT #### [facility] [address] [address] [address] Hemanth Kerr Creatinine [Mass/Vol] 1.32 mg/dL Critically high 0.55-1.02 [facility] Comment on above: Performed By: #### L ACT #### [facility] [address] [address] [address] Hemanth Kerr EGFR-AF LIBERIAN 58 mL/min/1.73m2 Critically low >=60 [facility] Comment on above: Performed By: #### L ACT #### [facility] [address] [address] [address] Hemanth Kerr EGFR-NON AF LIBERIAN 48 mL/min/1.73m2 Critically low >=60 [facility] Comment on above: Performed By: #### L ACT #### [facility] [address] [place] [address] Dr. Hemanth Kerr Globulin (S) [Mass/Vol] 2.9 g/dL Normal [facility] Comment on above: Performed By: #### L ACT #### [facility] [address] [address] [address] Hemanth Kerr Glucose [Mass/Vol] 143 mg/dL Critically high 74-106 [facility] Comment on above: Performed By: #### L ACT #### [facility] [address] [address] [address] Hemanth Kerr Potassium [Moles/Vol] 3.1 mmol/L Critically low 3.5-5.1 [facility] Comment on above: Performed By: #### L ACT #### [facility] [address] [address] [address] Hemanth Kerr Protein [Mass/Vol] 6.6 g/dL Normal 6.4-8.2 [facility] Comment on above: Performed By: #### L ACT #### [facility] [address] [address] [address] Hemanth Kerr Sodium [Moles/Vol] 142 mmol/L Normal 136-145 [facility] Comment on above: Performed By: #### L ACT #### [facility] [address] [address] [address] Hemanth Kerr Urea nitrogen [Mass/Vol] 17.0 mg/dL Normal 7.0-18.0 [facility] Comment on above: Performed By: #### L ACT #### [facility] [address] [place] [address] Dr. Hemanth Kerr Urea nitrogen/Creatinine [Mass ratio] 12.9 mg/mg Normal [facility] Comment on above: Performed By: #### L ACT #### [facility] [address] [place] [address] Dr. Hemanth Kerr PROTIMEon 11-28-2022 INR Coag (PPP) [Relative time] 0.97 {INR} Normal [facility] Comment on above: Performed By: #### P T, PTT #### [facility] [address] [place] [address] Dr. Hemanth Kerr INR GUIDELINES SEE BELOW Normal [facility] Comment on above: Result Comment: CHAN RED INR: 2.0 - 3.0 CONDITIONS NOT LISTED BELOW 2.5 - 3.5 FOR PROSTHETIC HEART VALVE REPLACEMENT 2.5 - 3.5 RECURRENT THROMBOSIS Performed By: #### P T, PTT #### [facility] [address] [place] [address] Dr. Hemanth Kerr PT Coag (PPP) [Time] 10.3 s Normal 9.0-11.6 [facility] Comment on above: Performed By: #### P T, PTT #### [facility] [address] [place] [address] Dr. Hemanth Kerr PTTon 11-28-2022 aPTT Coag (Bld) [Time] 25.4 s Normal 22.3-36.2 [facility] Comment on above: Performed By: #### P T, PTT #### [facility] [address] [place] [address] Dr. Hemanth Kerr SALICYLATEon 11-28-2022 SALICYLATE <2.8 Normal <=19.9 [facility] Comment on above: Performed By: #### C MP #### [facility] [address] [place] [address] Dr. Hemanth Kerr TROPONIN, HIGH SENSITIVITYon 11-28-2022 HSTROP 4.2 pg/mL Normal 4.0-51.3 [facility] Comment on above: Result Comment: CUT- OFF POINTS HAVE BEEN ESTABLISHED BASED ON THE FOURTH UNIVERSAL DEFINITIONS OF MYOCARDIAL INFARCTION. THE UPPER REFERENCE LIMIT (URL) OF TROPONIN, DEFINED THE 99TH PERCENTILE OF cTnI DISTRIBUTION IN A REFERENCE POPULATION, HAS BEEN CONFIRMED THE DECISION THRESHOLD FOR MT DIAGNOSIS. Performed By: #### C MP #### [facility] [address] [place] [address] Dr. Hemanth Kerr TSHon 11-28-2022 TSH 3.476 uIU/mL Normal 0.358-3.740 [facility] Comment on above: Performed By: #### L ACT #### [facility] [address] [place] [address] Dr. Hemanth Kerr URINE MICROSCOPIC ONLYon BACTERIA LARGE Abnormal NONE SEEN [facility] Comment on above: Performed By: #### P REG #### [facility] [address] [place] [address] Dr. Hemanth Kerr Bacteria identified Cx Nom (U) INDICATED Normal [facility] Comment on above: Performed By: #### P REG #### [facility] [address] [place] [address] Dr. Hemanth Kerr CAST SEEN Abnormal NONE SEEN [facility] Comment on above: Performed By: #### P REG #### [facility] [address] [place] [address] Dr. Hemanth Kerr COARSE GRANULAR CAST RARE Normal [facility] Comment on above: Performed By: #### P REG #### [facility] [address] [place] [address] Dr. Hemanth Kerr Crystals LM Nom (Urine sed) NONE SEEN Normal NONE SEEN [facility] Comment on above: Performed By: #### P REG #### [facility] [address] [place] [address] Dr. Hemanth Kerr Epithelial cells LM Ql (Urine sed) RARE Normal NONE SEEN /RARE [facility] Comment on above: Performed By: #### P REG #### [facility] [address] [place], [place] [id number] Dr. Hemanth Kerr MUCOUS NONE SEEN Normal NONE SEEN [facility] Comment on above: Performed By: #### P REG #### [facility] [address] [place] [address] Dr. Hemanth Kerr RBC 0-2 Normal 0-2 [facility] Comment on above: Performed By: #### P REG #### [facility] [address] [place] [address] Dr. Hemanth Kerr WBC 2-5 Abnormal NONE SEEN [facility] Comment on above: Performed By: #### P REG #### [facility] [address] [place] [address] Dr. Hemanth Kerr XR CHEST 1 Von [...] KAMILLA MILLS Date: 2022-11-28 17:39 Normal [facility] CULTURE URINEon 10-13-2022 CULTURE URINE Isolate 1 [...] Trimethoprim/Sulfamet hoxazole >=320 R F Normal [facility] Comment on above: Performed By: #### U RCX #### [facility] [address] [address] [address] Hemanth Kerr CBC AUTO DIFFon 10-11-2022 BASO # 0.0 103/ul Normal 0.0-0.1 [facility] Comment on above: Performed By: #### C BC #### [facility] [address] [address] [address] Hemanth Kerr Basophils/100 WBC (Bld) 0.3 % Normal 0.2-2.0 [facility] Comment on above: Performed By: #### C BC #### [facility] [address] [address] [address] Hemanth Kerr EO # 0.0 103/ul Normal 0.0-0.7 [facility] Comment on above: Performed By: #### C BC #### [facility] [address] [place] [address] Dr. Hemanth Kerr Eosinophils/100 WBC (Bld) 0.4 % Critically low 0.9-7.0 [facility] Comment on above: Performed By: #### C BC #### [facility] [address] [place] [address] Dr. Hemanth Kerr Erythrocyte distribution width (RBC) [Ratio] 12.2 % Normal 11.0-15.0 [facility] Comment on above: Performed By: #### C BC #### [facility] [address] [place] [address] Dr. Hemanth Kerr Hematocrit (Bld) [Volume fraction] 38.6 % Normal 36.0-48.0 [facility] Comment on above: Performed By: #### C BC #### [facility] [address] [place] [address] Dr. Hemanth Kerr Hemoglobin (Bld) [Mass/Vol] 12.0 g/dL Normal 12.0-16.0 [facility] Comment on above: Performed By: #### C BC #### [facility] [address] [place] [address] Dr. Hemanth Kerr IG # 0.07 10e3/ul Critically high 0.00-0.03 [facility] Comment on above: Performed By: #### C BC #### [facility] [address] [place] [address] Dr. Hemanth Kerr IG % 0.7 % Critically high 0.0-0.5 [facility] Comment on above: Performed By: #### C BC #### [facility] [address] [place] [address] Dr. Hemanth Kerr LYMPH # 1.2 103/ul Normal 1.2-3.8 [facility] Comment on above: Performed By: #### C BC #### [facility] [address] [place] [address] Dr. Hemanth Kerr Lymphocytes/100 WBC (Bld) 12.1 % Critically low 20.5-60.0 [facility] Comment on above: Performed By: #### C BC #### [facility] [address] [place] [address] Dr. Hemanth Kerr MANUAL DIFF REQ NO Normal [facility] Comment on above: Performed By: #### C BC #### [facility] [address] [place] [address] Dr. Hemanth Kerr MCH (RBC) [Entitic mass] 28.0 pg Normal 26.7-34.0 [facility] Comment on above: Performed By: #### C BC #### [facility] [address] [place] [address] Dr. Hemanth Kerr MCHC (RBC) [Mass/Vol] 31.1 g/dL Normal 29.9-35.2 [facility] Comment on above: Performed By: #### C BC #### [facility] [address] [place] [address] Dr. Hemanth Kerr MCV (RBC) [Entitic vol] 90.2 fL Normal 81.0-99.0 [facility] Comment on above: Performed By: #### C BC #### [facility] [address] [place] [address] Dr. Hemanth Kerr MONO # 0.7 103/ul Normal 0.3-0.8 [facility] Comment on above: Performed By: #### C BC #### [facility] [address] [address] [address] Hemanth Kerr Monocytes/100 WBC (Bld) 6.9 % Normal 1.7-12.0 [facility] Comment on above: Performed By: #### C BC #### [facility] [address] [address] [address] Hemanth Kerr NEUT # 8.1 103/ul Critically high 1.4-6.5 [facility] Comment on above: Performed By: #### C BC #### [facility] [address] [address] [address] Hemanth Kerr Neutrophils/100 WBC (Bld) 79.6 % Critically high 43.0-75.0 [facility] Comment on above: Performed By: #### C BC #### [facility] [address] [place] [address] Dr. Hemanth Kerr Platelet mean volume (Bld) [Entitic vol] 10.8 fL Normal 9.5-13.5 [facility] Comment on above: Performed By: #### C BC #### [facility] [address] [address] [address] Hemanth Kerr PLT 452 103/ul Critically high 150-450 [facility] Comment on above: Performed By: #### C BC #### [facility] [address] [address] [address] Hemnath Kerr RBC 4.28 106/ul Normal 4.20-5.40 [facility] Comment on above: Performed By: #### C BC #### [facility] [address] [address] [address] Hemanth Kerr WBC 10.1 103/ul Normal 4.0-11.0 [facility] Comment on above: Performed By: #### C BC #### [facility] [address] [place] [address] ABD/PELVIS WO CONon 10-11 CT [...] by: CHRISTINE SÁNCHEZ Date: 2022-10-11 14:45 Normal [facility] ER URINE PROFILEon 3 Bilirubin Ql (U) Negative Normal NEGATIVE [facility] Comment on above: Performed By: #### L ACT #### [facility] [address] [place] [address] Dr. Hemanth Krer Clarity (U) CLEAR Normal CLEAR [facility] Comment on above: Performed By: #### L ACT #### [facility] [address] [address] [address] Hemanth Kerr Color (U) LT. YELLOW Normal YELLOW [facility] Comment on above: Performed By: #### L ACT #### [facility] [address] [place] [address] Dr. Hemanth Kerr ERUAHD A micrscopic examination will be performed if indicated. Normal [facility] Comment on above: Performed By: #### L ACT #### [facility] [address] [address] [address] Hemanth Kerr Glucose Ql (U) Negative Normal NEGATIVE [facility] Comment on above: Performed By: #### L ACT #### [facility] [address] [address] [address] Hemanth Kerr Hemoglobin Ql (U) LARGE Abnormal NEGATIVE [facility] Comment on above: Performed By: #### L ACT #### [facility] [address] [address] [address] Hemanth Kerr Ketones Ql (U) Negative Normal NEGATIVE [facility] Comment on above: Performed By: #### L ACT #### [facility] [address] [place] [address] Dr. Hemanth Kerr LEUKOCYTES SMALL Abnormal NEGATIVE [facility] Comment on above: Performed By: #### L ACT #### [facility] [address] [place] [address] Dr. Hemanth Kerr Nitrite Ql (U) Negative Normal NEGATIVE [facility] Comment on above: Performed By: #### L ACT #### [facility] [address] [address] [address] Hemanth Kerr pH (U) 6.5 [pH] Normal 5-9 [facility] Comment on above: Performed By: #### L ACT #### [facility] [address] [place] [address] Dr. Hemanth Kerr Protein (U) [Mass/Vol] 30 mg/dL Abnormal NEGATIVE/ TRACE [facility] Comment on above: Performed By: #### L ACT #### [facility] [address] [place] [address] Dr. Hemanth Kerr SPEC GRAVITY <=1.005 Abnormal 1.005-<=1.025 [facility] Comment on above: Performed By: #### L ACT #### [facility] [address] [place] [address] Dr. Hemanth Kerr UR MICRO IND INDICATED Normal [facility] Comment on above: Performed By: #### L ACT #### [facility] [address] [address] [address] Hemanth Kerr Urobilinogen Qn (U) 1.0 {Jose'U}/dL Normal 0.2 - 1. 0 [facility] Comment on above: Performed By: #### L ACT #### [facility] [address] [address] [address] Hemanth Kerr PREG HCG QUALon 10-11-2022 , QUAL Negative Normal NEGATIVE [facility] Comment on above: Performed By: #### P REG #### [facility] [address] [address] [address] Hemanth Kerr PROF CHEM 8 (BAS METB)on Anion gap [Moles/Vol] 9.4 mmol/L Normal [facility] Comment on above: Performed By: #### L ACT #### [facility] [address] [place] [address] Dr. Hemanth Kerr Calcium [Mass/Vol] 8.8 mg/dL Normal 8.5-10.1 [facility] Comment on above: Performed By: #### L ACT #### [facility] [address] [address] [address] Hemanth Kerr Chloride [Moles/Vol] 97 mmol/L Critically low 98-107 [facility] Comment on above: Performed By: #### L ACT #### [facility] [address] [place] [address] Dr. Hemanth Kerr CO2 [Moles/Vol] 32.4 mmol/L Critically high 21.0-32.0 [facility] Comment on above: Performed By: #### L ACT #### [facility] [address] [place] [address] Dr. Hemanth Kerr Creatinine [Mass/Vol] 0.65 mg/dL Normal 0.55-1.02 [facility] Comment on above: Performed By: #### L ACT #### [facility] [address] [place] [address] Dr. Hemanth Kerr EGFR-AF LIBERIAN >60 Normal >=60 [facility] Comment on above: Performed By: #### L ACT #### [facility] [address] [address] [address] Hemanth Kerr EGFR-NON AF LIBERIAN >60 Normal >=60 [facility] Comment on above: Performed By: #### L ACT #### [facility] [address] [place] [address] Dr. Hemanth Kerr Glucose [Mass/Vol] 117 mg/dL Critically high 74-106 [facility] Comment on above: Performed By: #### L ACT #### [facility] [address] [address] [address] Hemanth Kerr Potassium [Moles/Vol] 2.8 mmol/L Critically low 3.5-5.1 [facility] Comment on above: Performed By: #### L ACT #### [facility] [address] [place] [address] Dr. Hemanth Kerr Sodium [Moles/Vol] 135 mmol/L Critically low 136-145 [facility] Comment on above: Performed By: #### L ACT #### [facility] [address] [place] [address] Dr. Hemanth Kerr Urea nitrogen [Mass/Vol] 8.0 mg/dL Normal 7.0-18.0 [facility] Comment on above: Performed By: #### L ACT #### [facility] [address] [place] [address] Dr. Hemanth Kerr Urea nitrogen/Creatinine [Mass ratio] 12.3 mg/mg Normal [facility] Comment on above: Performed By: #### L ACT #### [facility] [address] [place] [address] Dr. Hemanth Kerr URINE MICROSCOPIC ONLYon BACTERIA SMALL Abnormal NONE SEEN [facility] Comment on above: Performed By: #### L ACT #### [facility] [address] [place], [place] [id number] Dr. Hemanth Kerr Bacteria identified Cx Nom (U) INDICATED Normal [facility] Comment on above: Performed By: #### L ACT #### [facility] [address] [place] [address] Dr. Hemanth Kerr CAST NONE SEEN Normal NONE SEEN [facility] Comment on above: Performed By: #### L ACT #### [facility] [address] [place] [address] Dr. Hemanth Kerr Crystals LM Nom (Urine sed) NONE SEEN Normal NONE SEEN [facility] Comment on above: Performed By: #### L ACT #### [facility] [address] [place] [address] Dr. Hemanth Kerr Epithelial cells LM Ql (Urine sed) FEW Abnormal NONE SEEN /RARE [facility] Comment on above: Performed By: #### L ACT #### [facility] [address] [place] [address] Dr. Hemanth Kerr MUCOUS NONE SEEN Normal NONE SEEN [facility] Comment on above: Performed By: #### L ACT #### [facility] [address] [place] [address] Dr. Hemanth Kerr RBC 0-2 Normal 0-2 [facility] Comment on above: Performed By: #### L ACT #### [facility] [address] [place] [address] Dr. Hemanth Kerr WBC 10-20 Abnormal NONE SEEN [facility] Comment on above: Performed By: #### L ACT #### [facility] [address] [place] [address] Dr. Hemanth Kerr PREG QUANT HCGon 09-12-2022 HCG QUANT 66 mIU/mL Normal [facility] Comment on above: Performed By: #### C MP #### [facility] [address] [place] [address] Dr. Hemanth Kerr HCG RANGE SEE BELOW Normal [facility] Comment on above: Result Comment: 5-50 0.2-1 WEEK 50-500 1-2 WEEKS 100-5,000 2-3 WEEKS 500-10,000 3-4 WEEKS 1,000-50,000 4-5 WEEKS 10,000-100,000 5-6 WEEKS 15,000-200,000 6-8 WEEKS 10,000-100,000 2-3 MONTHS Performed By: #### C MP #### [facility] [address] [place] [address] Dr. Hemanth Kerr CBC AUTO DIFFon 08-16-2022 BASO # 0.0 103/ul Normal 0.0-0.1 [facility] Comment on above: Performed By: #### L ACT #### [facility] [address] [place] [address] Dr. Hemanth Kerr Basophils/100 WBC (Bld) 0.6 % Normal 0.2-2.0 [facility] Comment on above: Performed By: #### L ACT #### [facility] [address] [address] [address] Hemanth Kerr EO # 0.1 103/ul Normal 0.0-0.7 [facility] Comment on above: Performed By: #### L ACT #### [facility] [address] [place] [address] Dr. Hemanth Kerr Eosinophils/100 WBC (Bld) 1.3 % Normal 0.9-7.0 [facility] Comment on above: Performed By: #### L ACT #### [facility] [address] [place] [address] Dr. Hemanth Kerr Erythrocyte distribution width (RBC) [Ratio] 12.0 % Normal 11.0-15.0 [facility] Comment on above: Performed By: #### L ACT #### [facility] [address] [place] [address] Dr. Hemanth Kerr Hematocrit (Bld) [Volume fraction] 35.6 % Critically low 36.0-48.0 [facility] Comment on above: Performed By: #### L ACT #### [facility] [address] [place] [address] Dr. Hemanth Kerr Hemoglobin (Bld) [Mass/Vol] 12.4 g/dL Normal 12.0-16.0 [facility] Comment on above: Performed By: #### L ACT #### [facility] [address] [place] [address] Dr. Hemanth Kerr IG # 0.02 10e3/ul Normal 0.00-0.03 [facility] Comment on above: Performed By: #### L ACT #### [facility] [address] [place] [address] Dr. Hemanth Kerr IG % 0.3 % Normal 0.0-0.5 [facility] Comment on above: Performed By: #### L ACT #### [facility] [address] [place] [address] Dr. Hemanth Kerr LYMPH # 1.9 103/ul Normal 1.2-3.8 [facility] Comment on above: Performed By: #### L ACT #### [facility] [address] [place] [address] Dr. Hemanth Kerr Lymphocytes/100 WBC (Bld) 27.5 % Normal 20.5-60.0 [facility] Comment on above: Performed By: #### L ACT #### [facility] [address] [place] [address] Dr. Hemanth Kerr MANUAL DIFF REQ NO Normal [facility] Comment on above: Performed By: #### L ACT #### [facility] [address] [place] [address] Dr. Hemanth Kerr MCH (RBC) [Entitic mass] 29.6 pg Normal 26.7-34.0 [facility] Comment on above: Performed By: #### L ACT #### [facility] [address] [place] [address] Dr. Hemanth Kerr MCHC (RBC) [Mass/Vol] 34.8 g/dL Normal 29.9-35.2 [facility] Comment on above: Performed By: #### L ACT #### [facility] [address] [place] [address] Dr. Hemanth Kerr MCV (RBC) [Entitic vol] 85.0 fL Normal 81.0-99.0 [facility] Comment on above: Performed By: #### L ACT #### [facility] [address] [place] [address] Dr. Hemanth Kerr MONO # 0.4 103/ul Normal 0.3-0.8 [facility] Comment on above: Performed By: #### L ACT #### [facility] [address] [place] [address] Dr. Hemanth Kerr Monocytes/100 WBC (Bld) 6.3 % Normal 1.7-12.0 [facility] Comment on above: Performed By: #### L ACT #### [facility] [address] [address] [address] Hemanth Kerr NEUT # 4.5 103/ul Normal 1.4-6.5 [facility] Comment on above: Performed By: #### L ACT #### [facility] [address] [address] [address] Hemanth Kerr Neutrophils/100 WBC (Bld) 64.0 % Normal 43.0-75.0 [facility] Comment on above: Performed By: #### L ACT #### [facility] [address] [place] [address] Dr. Hemanth Kerr Platelet mean volume (Bld) [Entitic vol] 10.6 fL Normal 9.5-13.5 [facility] Comment on above: Performed By: #### L ACT #### [facility] [address] [place] [address] Dr. Hemanth Kerr PLT 247 103/ul Normal 150-450 [facility] Comment on above: Performed By: #### L ACT #### [facility] [address] [place] [address] Dr. Hemanth Kerr RBC 4.19 106/ul Critically low 4.20-5.40 [facility] Comment on above: Performed By: #### L ACT #### [facility] [address] [place] [address] Dr. Hemanth Kerr WBC 7.0 103/ul Normal 4.0-11.0 [facility] Comment on above: Performed By: #### L ACT #### [facility] [address] [place] [address] Dr. Hemanth Kerr Covid-19 PCR ([facility])on 07-20 SARS-CoV-2 (COVID-19) RNA ELMO+probe Ql (Unsp spec) Not detected Normal NOT DETECTED [facility] Comment on above: Result Comment: This test is not yet approved or cleared by the [place] FDA. When there are no FDA-approved or cleared tests available, and other criteria are met, FDA can make tests available under an emergency access mechanism called an Emergency Use Authorization (EUA). The EUA for this test is supported by the [place] of Health and Human Service's (HHS's) declaration [...] SARS-CoV-2. Performed By: #### C MP #### [facility] [address] [place] [address] Dr. Hemanth Kerr PREG QUANT HCGon 08-16-2022 HCG QUANT [id number] mIU/mL Normal [facility] Comment on above: Performed By: #### P REG #### [facility] [address] [place] [address] Dr. Hemanth Kerr HCG RANGE SEE BELOW Normal [facility] Comment on above: Result Comment: 5-50 0.2-1 WEEK 50-500 1-2 WEEKS 100-5,000 2-3 WEEKS 500-10,000 3-4 WEEKS 1,000-50,000 4-5 WEEKS 10,000-100,000 5-6 WEEKS 15,000-200,000 6-8 WEEKS 10,000-100,000 2-3 MONTHS Performed By: #### P REG #### [facility] [address] [place] [address] Dr. Hemanth Kerr PREG QUANT HCGon 08-14-2022 HCG QUANT 03698 mIU/mL Normal [facility] Comment on above: Performed By: #### P REG #### [facility] [address] [place] [address] Dr. Hemanth Kerr HCG RANGE SEE BELOW Normal [facility] Comment on above: Result Comment: 5-50 0.2-1 WEEK 50-500 1-2 WEEKS 100-5,000 2-3 WEEKS 500-10,000 3-4 WEEKS 1,000-50,000 4-5 WEEKS 10,000-100,000 5-6 WEEKS 15,000-200,000 6-8 WEEKS 10,000-100,000 2-3 MONTHS Performed By: #### P REG #### [facility] [address] [address] [address] Hemanth Kerr US PREG TVon 08-14-2022 [...] by: CHRISTINE SÁNCHEZ Date: 2022-08-14 16:22 Normal [facility] US PREG TVon 07-27-2022 US PREG [...] by: CHRISTINE SÁNCHEZ Date: 2022-07-27 17:04 Normal [facility] XR CHEST 1 Von 07-09-2022 XR [...] by: FELIX WEBB Date: 2022-07-09 12:06 Normal [facility]E [facility]IN ([id number]) 1995 F Date Time Provider Department 12/12/21 KING SUAZO During your visit today, we recorded the following information about you: Angelia Almazan 12/12/2021 11:16 AM Signed Pleases sign pending new cbc order. Thanks, Angelia Almazan MA Allergies As of Date: 12/12/2021 (No Known Allergies) Date Reviewed: 12/12/2021 Reviewed by: Jasmin Silverio APRN.[facility] - Fully Assessed Reason for Visit: Lab Orders [168] Primary Visit Diagnosis:Iron deficiency anemia, unspecified iron deficiency anemia type [D50.9] Order(s):CBC + DIFF [SQCBCDIF] Order #: [id number] FUTURE Prescriptions as of 12/12/2021 - gabapentin (NEURONTIN) 400 mg capsule Take by mouth. - Polysaccharide Iron Complex 180 mg iron cap Take by mouth. - aspirin 81 mg cap Take 81 mg by mouth once daily. - ONDANSETRON HCL ORAL Take 4 mg by mouth as needed. Problem List As Of Date: 12/12/2021 (None) Encounter Status:Closed by JASMIN SILVERIO on 12/12/21 Normal [facility]10-20[facility] NOE ERVIN ([id number]) 1995 F Date Time Provider Department 11/10/21 [...] B12 is slightly low. Options would be [id number] B12 tablets 2 mg daily or start a monthly injection. Thanks, MELANY De La O RN 11/10/2021 3:40 PM Signed Informed pt of Dr Suazo's message. Pt verbalized understanding and states [facility] told her only 2 doses of the [...] by JENNYFER DE LA O on 11/10/21 [facility] CNOVSPon 11-08-2021 CNOVSP Visit (SP) Office (HEMASA) NOE ERVIN ([id number]) 1995 F Date Time Provider Department 11/08/21 [...] shortness of breath, and is seen at [place] emergency room. Labs revealed a hemoglobin of [...] (more content not included)... Normal [facility] Comp Metabolic Panelon 11-08 Albumin [Mass/Vol] 3.6 g/dL Low 3.9-4.9 [facility] Comment on above: Performed By: #### S ERFOL, IRON, B12, FERR #### [address] [place], [place] [address] ALP [Catalytic activity/Vol] 79 U/L Normal 34-123 [facility] Comment on above: Performed By: #### S ERFOL, IRON, B12, FERR #### [facility] [address] [place], [place] [address] ALT [Catalytic activity/Vol] 8 U/L Normal 7-38 [facility] Comment on above: Performed By: #### S ERFOL, IRON, B12, FERR #### [facility] [address] [place], [place] [address] Anion gap [Moles/Vol] 9 mmol/L Normal 9-18 [facility] Comment on above: Performed By: #### S ERFOL, IRON, B12, FERR #### [facility] [address] [place], [place] [address] AST [Catalytic activity/Vol] 13 U/L Normal 13-35 [facility] Comment on above: Performed By: #### S ERFOL, IRON, B12, FERR #### [address] [place] [address] Bilirubin [Mass/Vol] 0.2 mg/dL Normal 0.2-1.3 [facility] Comment on above: Performed By: #### S ERFOL, IRON, B12, FERR #### [place] [address] Calcium [Mass/Vol] 9.3 mg/dL Normal 8.5-10.2 [facility] Comment on above: Performed By: #### S ERFOL, IRON, B12, FERR #### [place] [address] Chloride [Moles/Vol] 102 mmol/L Normal 97-105 [facility] Comment on above: Performed By: #### S ERFOL, IRON, B12, FERR #### [place] [address] CO2 [Moles/Vol] 23 mmol/L Normal 22-30 [facility] Comment on above: Performed By: #### S ERFOL, IRON, B12, FERR #### [place] [address] Creatinine [Mass/Vol] 0.55 mg/dL Low 0.58-0.96 [facility] Comment on above: Performed By: #### S ERFOL, IRON, B12, FERR #### [place] [address] eGFR- Amer. >60 Normal [facility] Comment on above: Performed By: #### S ERFOL, IRON, B12, FERR #### [place] [address] eGFR-All Other Races >60 Normal [facility] Comment on above: Result Comment: [...] #### S ERFOL, IRON, B12, FERR #### [facility] [employer] [address] [place], [place] [address] Glucose [Mass/Vol] 96 mg/dL Normal 74-99 [facility] Comment on above: Result Comment: The [place] Diabetes Association (ADA) provides guidance for cutoff [...] Standards of Medical Care in Diabetes 2016, [place] Diabetes Association. Diabetes Care. 2016.39(Suppl 1). Performed By: #### S ERFOL, IRON, B12, FERR #### [facility] [employer] [address] [place], [place] [address] Potassium [Moles/Vol] 3.3 mmol/L Low 3.7-5.1 [facility] Comment on above: Performed By: #### S ERFOL, IRON, B12, FERR #### [address] [place], [place] [address] Protein [Mass/Vol] 6.3 g/dL Normal 6.3-8.0 [facility] Comment on above: Performed By: #### S ERFOL, IRON, B12, FERR #### [address] [address] Sodium [Moles/Vol] 134 mmol/L Low 136-144 [facility] Comment on above: Performed By: #### S ERFOL, IRON, B12, FERR #### [place] [address] Urea nitrogen [Mass/Vol] 4 mg/dL Low 7-21 [facility] Comment on above: Performed By: #### S ERFOL, IRON, B12, FERR #### [place] [id number] Ferritinon 11-08-2021 Ferritin [Mass/Vol] 203.0 ng/mL Normal 14.7-205.1 [facility] Comment on above: Performed By: #### S ERFOL, IRON, B12, FERR #### [address] [address] Folate, Serumon 11-08-2021 Folate [Mass/Vol] 8.5 ng/mL Normal >4.7 [facility] Comment on above: Performed By: #### S ERFOL, IRON, B12, FERR #### [address] [address] Iron and TIBCon 11-08-2021 Iron [Mass/Vol] 93 ug/dL Normal 41-186 [facility] Comment on above: Performed By: #### S ERFOL, IRON, B12, FERR #### [address] [address] TIBC 407 ug/dL High 232-386 [facility] Comment on above: Performed By: #### S ERFOL, IRON, B12, FERR #### [facility] [address] [place] [id number] Transferrin Saturatn 23 % Normal 15-57 [facility] Comment on above: Performed By: #### S ERFOL, IRON, B12, FERR #### [facility] [employer] [address] [place], [place] [address] Remote CBCDIF (for [facility] use o nly)on 11-08-2021 Abs Baso <0.03 Normal <0.11 [facility] Abs [place] 0.57 k/uL Normal <0.87 [facility] Abs Neut 4.67 k/uL Normal 1.45-7.50 [facility] Absolute nRBC <0.01 Normal <0.01 [facility] Basophils/100 WBC (Bld) 0.3 % Normal [facility] DTYPE Auto Diff Normal [facility] Eosinophils (Bld) [#/Vol] 0.05 10*3/uL Normal <0.46 [facility] Eosinophils/100 WBC (Bld) 0.8 % Normal [facility] Erythrocyte distribution width (RBC) [Ratio] 29.9 % High 11.5-15.0 [facility] Hematocrit (Bld) [Volume fraction] 32.6 % Low 36.0-46.0 [facility] Hemoglobin (Bld) [Mass/Vol] 10.1 g/dL Low 11.5-15.5 [facility] Lymphocytes (Bld) [#/Vol] 1.25 10*3/uL Normal 1.00-4.00 [facility] Lymphocytes/100 WBC (Bld) 19.1 % Normal [facility] MCH 25.1 pG Low 26.0-34.0 [facility] MCHC (RBC) [Mass/Vol] 31.0 g/dL Normal 30.5-36.0 [facility] MCV (RBC) [Entitic vol] 81.1 fL Normal 80.0-100.0 [facility] Monocytes/100 WBC (Bld) 8.7 % Normal [facility] Neutrophils/100 WBC (Bld) 71.1 % Normal [facility] NRBCs 0.0 /100 WBC Normal 0 [facility] Platelet mean volume (Bld) [Entitic vol] 10.3 fL Normal 9.0-12.7 [facility] Platelets (Bld) [#/Vol] 223 10*3/uL Normal 150-400 [facility] Comment on above: Result Comment: Resu lt checked and verified Sample checked for a clot. RBC (Bld) [#/Vol] 4.02 10*6/uL Normal 3.90-5.[address] [facility] WBC (Bld) [#/Vol] 6.56 10*3/uL Normal 3.70-11.[address] [facility] Reticulocyteon 11-08-2021 Abs Retic 0.140 M/uL High 0.0180-0.1000 [facility] Comment on above: Performed By: #### S ERFOL, IRON, B12, FERR #### [place] [address] Retic% 3.5 % High 0.4-2.0 [facility] Comment on above: Performed By: #### S ERFOL, IRON, B12, FERR #### [address] [place] [id number] Vitamin B12on 11-08-2021 Cobalamin (Vitamin B12) [Mass/Vol] 218 pg/mL Low 232-1245 [facility] Comment on above: Performed By: #### S ERFOL, IRON, B12, FERR #### [address] [place] [address] HCV RNA,Quant,PCRon 04-27-20 20 HCV RNA,Quant,PCR Specimen [...] genotypes 1-6. Report Status FINAL 04/27/2020 Normal [facility] Comment on above: Performed By: #### H IVCMB, PHEP #### [address] [address] Scow Hand: Dom Fwoler MD #### CP #### [facility] [address] [place] [address] Dr. [phone] Scow Hand: Shakeel Graham MD [facility] 04-26-2020 Erythrocyte distribution width (RBC) [Ratio] 14.7 % High 11.8-14.4 [facility] Comment on above: Performed By: #### H IVCMB, PHEP #### [address] [address] Scow Hand: Dom Fowler MD #### CP #### [facility] [address] [place] [address] Dr. [address] [phone] Scow Hand: Shakeel Graham MD Hematocrit (Bld) [Volume fraction] 36.0 % Low 36.3-47.1 [facility] Comment on above: Performed By: #### H IVCMB, PHEP #### [address] [address] Scow Hand: Dom Fowler MD #### CP #### [facility] [address] [place] [address] [place] [phone] [employer] Hand: Shakeel Graham MD Hemoglobin (Bld) [Mass/Vol] 10.9 g/dL Low 11.9-15.1 [facility] Comment on above: Performed By: #### H IVCMB, PHEP #### [address] [address] Scow Hand: Dom Fowler MD #### CP #### [facility] [address] [place] [address] [place], [place] [phone] Scow Hand: Shakeel Graham MD MCH (RBC) [Entitic mass] 26.2 pg Normal 25.2-33.5 [facility] Comment on above: Performed By: #### H IVCMB, PHEP #### [address] [address] Scow Hand: Dom Fowler MD #### CP #### [facility] [address] [place] [address] Dr. [address] [phone] Sc[employer] Hand: Shakeel Graham MD MCHC (RBC) [Mass/Vol] 30.3 g/dL Normal 28.4-34.8 [facility] Comment on above: Performed By: #### H IVCMB, PHEP #### [address] [address] Scow Hand: Dom Fowler MD #### CP #### [address] [place] [phone] Scow Hand: Shakeel Graham MD MCV (RBC) [Entitic vol] 86.5 fL Normal 82.6-102.9 [facility] Comment on above: Performed By: #### H IVCMB, PHEP #### [address] [address] Scow Hand: Dom Fowler MD #### CP #### [address] [place] [phone] Scow Hand: Shakeel Graham MD NRBC Automated 0.0 per 100 WBC Normal 0.0 [facility] Comment on above: Performed By: #### H IVCMB, PHEP #### [address] [address] Scow Hand: Dom Fowler MD #### CP #### [address] [place], [place] [phone] Scow Hand: Shakeel Graham MD Platelet mean volume (Bld) [Entitic vol] 10.8 fL Normal 8.1-13.5 [facility] Comment on above: Performed By: #### H IVCMB, PHEP #### [address] [address] Scow Hand: Dom Fowler MD #### CP #### [address] [place], [place] [id number] Scow Hand: Shakeel Graham MD Platelets (Bld) [#/Vol] 328 10*3/uL Normal 138-453 [facility] Comment on above: Performed By: #### H IVCMB, PHEP #### [address] [address] Scow Hand: Dom Fowler MD #### CP #### [address] [place], [place] [phone] Scow Hand: Shakeel Graham MD RBC (Bld) [#/Vol] 4.16 10*6/uL Normal 3.95-5.11 [facility] Comment on above: Performed By: #### H IVCMB, PHEP #### [address] [address] Scow Hand: Dom Fowler MD #### CP #### [address] [place], [place] [phone] Scow Hand: Shakeel Graham MD WBC (Bld) [#/Vol] 5.7 10*3/uL Normal 3.5-11.3 [facility] Comment on above: Performed By: #### H IVCMB, PHEP #### [address] [address] Scow Hand: Dom Fowler MD #### CP #### [address] [place] [address] Scow Hand: Shakeel Graham MD Erythrocyte distribution width (RBC) [Ratio] 14.7 % High 11.8 - 14.4 % [place], [place] Hematocrit (Bld) [Volume fraction] 36.0 % Low 36.3 - 47.1 % [place] Hemoglobin (Bld) [Mass/Vol] 10.9 g/dL Low 11.9 - 15.1 g/dL [place] Interpretation and review of laboratory results Abnormal [place] MCH (RBC) [Entitic mass] 26.2 pg 25.2 - 33.5 pg [place] MCHC (RBC) [Mass/Vol] 30.3 g/dL 28.4 - 34.8 g/dL [place] MCV (RBC) [Entitic vol] 86.5 fL 82.6 - 102.9 fL [place] Platelet mean volume (Bld) [Entitic vol] 10.8 fL 8.1 - 13.5 fL [place], [place] Platelets (Bld) [#/Vol] 328 10*3/uL [place] RBC (Bld) [#/Vol] 4.16 10*6/uL 3.95 - 5.1 1 m/uL [place] WBC (Bld) [#/Vol] 0.0 10*3/uL 0.0 per 100 WBC [place] WBC (Bld) [#/Vol] 5.7 10*3/uL [place], [place] Comp Metabolic Profon 2019 Bilirubin Ql (U) <0.10 Low 0.3-1.2 [facility] Comment on above: Performed By: #### H IVCMB, PHEP #### [facility] [employer] [address] [place] [address] Scow Hand: Dom [place] MD #### CP #### [facility] [address] [place] [address] Scow Hand: Shakeel Graham MD (cont.) Normal [facility] Comment on above: Result Comment: Aver age GFR for 20-29 years old: 116 mL/min/1.73sq m Chronic Kidney Disease: <60 mL/min/1.73sq m Kidney failure: <15 mL/min/1.73sq m eGFR calculated using average adult body mass. Additional eGFR calculator available at: http://www.[employer]/multiple_crcl_2011.htm Performed By: #### H IVCMB, PHEP #### [facility] [address] [place] [address] Scow Hand: Dom Fowler MD #### CP #### [facility] [address] [place] [address] Scow Hand: Shakeel Graham MD Albumin [Mass/Vol] 3.4 g/dL Low 3.5-5.2 [facility] Comment on above: Performed By: #### H IVCMB, PHEP #### [address] [place] [address] Scow Hand: Dom Fowler MD #### CP #### [facility] [address] [place] [address] Scow Hand: Shakeel Graham MD Albumin/Globulin [Mass ratio] 1.5 {ratio} Normal 1.0-2.5 [facility] Comment on above: Performed By: #### H IVCMB, PHEP #### [address] [place] [address] Scow Hand: Dom Fowler MD #### CP #### [facility] [address] [place] [address] Scow Hand: Shakeel Graham MD Alkaline Phos 40 U/L Normal 35-104 [facility] Comment on above: Performed By: #### H IVCMB, PHEP #### [address] [address] Scow Hand: Dom Fowler MD #### CP #### [facility] [address] [place], [place] [phone] Scow Hand: Shakeel Graham MD ALT [Catalytic activity/Vol] 12 U/L Normal 5-33 [facility] Comment on above: Performed By: #### H IVCMB, PHEP #### [facility] [address] [place] [address] Scow Hand: Dom Fowler MD #### CP #### [facility] [address] [place], [place] [phone] Scow Hand: Shakeel Graham MD Anion gap [Moles/Vol] 9 mmol/L Normal 9-17 [facility] Comment on above: Performed By: #### H IVCMB, PHEP #### [facility] [address] [place] [address] Scow Hand: Dom Fowler MD #### CP #### [facility] [address] [place], [place] [phone] Scow Hand: Shakeel Graham MD AST [Catalytic activity/Vol] 12 U/L Normal <32 [facility] Comment on above: Performed By: #### H IVCMB, PHEP #### [facility] [address] [place] [address] Scow Hand: Dom Fowler MD #### CP #### [facility] [address] [place], [place] [phone] Scow Hand: Shakeel Graham MD BUN/CRE Ratio 26 High 9-20 [facility] Comment on above: Performed By: #### H IVCMB, PHEP #### [facility] [address] [place] [address] Sc[employer] Hand: Dom Fowler MD #### CP #### [facility] [address] [place], [place] [phone] Scow Hand: Shakeel Graham MD Calcium [Mass/Vol] 9.3 mg/dL Normal 8.6-10.4 [facility] Comment on above: Performed By: #### H IVCMB, PHEP #### [address] [address] Scow Hand: Dom Fowler MD #### CP #### [facility] [address] [place] [address] Dr. [address] [phone] Scow Hand: Shakeel Graham MD Chloride [Moles/Vol] 109 mmol/L High 98-107 [facility] Comment on above: Performed By: #### H IVCMB, PHEP #### [address] [address] Scow Hand: Dom Fowler MD #### CP #### [facility] [address] [place] [address] [place] [phone] Scow Hand: Shakeel Graham MD CO2 [Moles/Vol] 26 mmol/L Normal 20-31 [facility] Comment on above: Performed By: #### H IVCMB, PHEP #### [address] [address] Scow Hand: Dom Fowler MD #### CP #### [address] [phone] Scow Hand: Shakeel Graham MD Creatinine [Mass/Vol] 0.57 mg/dL Normal 0.50-0.90 [facility] Comment on above: Performed By: #### H IVCMB, PHEP #### [address] [address] Scow Hand: Dom Fowler MD #### CP #### [facility] [address] [place] [address] [place], [place] [phone] Scow Hand: Shakeel Graham MD GFR, Amer >60 Normal >60 [facility] Comment on above: Performed By: #### H IVCMB, PHEP #### [facility] [address] [place] [address] Scow Hand: Dom Fowler MD #### CP #### [facility] [address] [place], [place] [phone] Scow Hand: Shakeel Graham MD GFR,non Amer >60 Normal >60 [facility] Comment on above: Performed By: #### H IVCMB, PHEP #### [address] [address] Scow Hand: Dom Fowler MD #### CP #### [facility] [address] [place] [address] Dr. [place], [place] [phone] Scow Hand: Shakeel Graham MD Glucose [Mass/Vol] 92 mg/dL Normal 70-99 [facility] Comment on above: Performed By: #### H IVCMB, PHEP #### [address] [address] Scow Hand: Dom Fowler MD #### CP #### [facility] [address] [place] [address] [place] [address] Scow Hand: Shakeel Graham MD Potassium [Moles/Vol] 3.8 mmol/L Normal 3.7-5.3 [facility] Comment on above: Performed By: #### H IVCMB, PHEP #### [facility] [address] [place] [address] Scow Hand: Dom Fowler MD #### CP #### [facility] [address] [place], [place] [phone] Scow Hand: Shakeel Grahma MD Protein [Mass/Vol] 5.7 g/dL Low 6.4-8.3 [facility] Comment on above: Performed By: #### H IVCMB, PHEP #### [address] [address] Scow Hand: Dom Fowler MD #### CP #### [facility] [address] [place] [address] Scow Hand: Shakeel Graham MD Sodium [Moles/Vol] 144 mmol/L Normal 135-144 [facility] Comment on above: Performed By: #### H IVCMB, PHEP #### [id number] [place] [address] Scow Hand: Dom Fowler MD #### CP #### [facility] [address] [place] [address] Scow Hand: Shakeel Graham MD Staging: Normal [facility] Comment on above: Result Comment: Stag e 1: Some kidney damage normal GFR Stage 2: Mild kidney damage GFR 60-89 Stage 3: Moderate kidney damage GFR 30-59 Stage 4: Severe kidney damage GFR 15-29 Stage 5: Severe kidney damage GFR <15 ESRD - chronic treatment by dialysis or transplant Performed By: #### H IVCMB, PHEP #### [facility] [address] [place] [address] Scow Hand: Dom Fowler MD #### CP #### [address] [place] [address] Scow Hand: Shakeel Graham MD Urea nitrogen [Mass/Vol] 15 mg/dL Normal 6-20 [facility] Comment on above: Performed By: #### H IVCMB, PHEP #### [facility] [address] [place] [address] Scow Hand: Dom Fowler MD #### CP #### [address] [place] [address] Scow Hand: Shakeel Graham MD [facility] 04-26-2020 Albumin [Mass/Vol] 3.4 g/dL Low 3.5 - 5.2 g/dL [place] Albumin/Globulin [Mass ratio] 1.5 {ratio} [place], [place] ALP [Catalytic activity/Vol] 40 U/L 35 - 104 U/L [place] ALT [Catalytic activity/Vol] 12 U/L 5 - 33 U/L [place] Anion gap [Moles/Vol] 9 mmol/L 9 - 17 mmol/L [place] AST [Catalytic activity/Vol] 12 U/L <32 [place] Bilirubin Ql (U) <0.10 Low 0.3 - 1.2 mg/dL [place], [place] Bun/Cre Ratio 26 High [place], [place] Calcium [Mass/Vol] 9.3 mg/dL 8.6 - 10. 4 mg/dL [place] Chloride [Moles/Vol] 109 mmol/L High 98 - 107 mmol/L [place] CO2 [Moles/Vol] 26 mmol/L 20 - 31 mmol/L [place] Creatinine [Mass/Vol] 0.57 mg/dL 0.5 - 0.9 mg/dL [place] GFR >60 >60 mL/min [place] GFR Non- >60 >60 mL/min [place] Glucose [Mass/Vol] 92 mg/dL 70 - 99 mg/dL [place] Interpretation and review of laboratory results Abnormal [place] Potassium [Moles/Vol] 3.8 mmol/L 3.7 - 5.3 mmol/L [place] Protein [Mass/Vol] 5.7 g/dL Low 6.4 - 8.3 g/dL [place], [place] Sodium [Moles/Vol] 144 mmol/L 135 - 144 mmol/L [place] Urea nitrogen [Mass/Vol] 15 mg/dL 6 - 20 mg/dL [place] HCG Qualitative, Serumon hCG Qual Negative NEGATIVE [place] Comment on above: Specimens with hCG l evels near the threshold of the test (25 mIU/mL) may give a negative or indeterminate result. In such cases, another test should be performed with a new specimen in 48-72 hours. If early is suspected clinically in this setting, correlation with quantitative serum b-hCG level is suggested. [facility] has confirmed the use of plasma for this test. This has not been cleared or approved by the U.S. Food and Drug Administration. The FDA has determined that such clearance is not necessary. HCG Screen, Bloodon 04-26-20 20 HCG Qn Negative Normal NEG [facility] Comment on above: Result Comment: Spec imens with hCG levels near the threshold of the test (25 mIU/mL) may give a negative or indeterminate result. In such cases, another test should be performed with a new specimen in 48-72 hours. If early is suspected clinically in this setting, correlation with quantitative serum b-hCG level is suggested. [facility] has confirmed the use of plasma for this test. This has not been cleared or approved by the U.S. Food and Drug Administration. The FDA has determined that such clearance is not necessary. Performed By: #### H IVCMB, PHEP #### [facility] [address] [place], [place] [id number] Scow Hand: Dom Fowler MD #### CP #### [facility] [address] [place] [address] [place] [address] Scow Hand: Shakeel Graham MD HIV Ag/Abon 04-26-2020 HIV Ag/Ab NONREACTIVE Normal NR [facility] Comment on above: Result Comment: No l aboratory evidence of HIV infection. If acute HIV infection is suspected, consider testing for HIV-1 RNA. Performed By: #### H IVCMB, PHEP #### [facility] [address] [place] [address] Scow Hand: Dom Fowler MD #### CP #### [facility] [address] [place] [address] Scow Hand: Shakeel Graham MD HIV Screenon 04-26-2020 HIV Ag/Ab NONREACTIVE NONREACTIVE [facility], [place] Comment on above: No laboratory eviden ce of HIV infection. If acute HIV infection is suspected, consider testing for HIV-1 RNA. Hepatitis Acute [facility] 04-26 Hep A Ab,IgM NONREACTIVE Normal NR [facility] Comment on above: Performed By: #### H IVCMB, PHEP #### [facility] [address] [place] [address] Scow Hand: Dom Fowler MD #### CP #### [facility] [address] [place] [address] [place] [address] Scow Hand: Shakeel Graham MD Hep B Core Ab,IgM NONREACTIVE Normal [facility] Comment on above: Performed By: #### H IVCMB, PHEP #### [facility] [address] [place] [address] Scow Hand: Dom Fowler MD #### CP #### [address] [place] [address] Scow Hand: Shakeel Graham MD Hep B Surf Ag NONREACTIVE Normal [facility] Comment on above: Performed By: #### H IVCMB, PHEP #### [address] [address] Scow Hand: Dmo Fowler MD #### CP #### [facility] [address] [place] [address] [place] [address] Scow Hand: Shakeel Graham MD Hep C Ab REACTIVE Abnormal [facility] Comment on above: Result Comment: The [...] Performed By: #### H IVCMB, PHEP #### [facility] [address] [place] [address] Scow Hand: Dom Fowler MD #### CP #### [facility] [address] [place] [address] Scow Hand: Shakeel Graham MD Hepatitis Panel, Acuteon HAV IgM IA Qn (S) NONREACTIVE NONREACTIVE [place] Hep B Core Ab, IgM NONREACTIVE NONREACTIVE [place] Hepatitis B Surface Ag NONREACTIVE NONREACTIVE [place] Hepatitis C Ab REACTIVE Abnormal NONREACTIVE [place], [place] Comment on above: The hepatitis C [...] Interpretation and review of laboratory results Abnormal [place] Metabolic Panelon 04-26-2020 GFR/1.73 sq M predicted among non-blacks MDRD (S/P/Bld) [Vol rate/Area] [place] Comment on above: Stage 1: Some [...] body mass. Additional eGFR calculator available at: http://www.Fancorps.Venga/multiple_crcl_2012.htm Microscopic Urinalysison Amorphous, UA NOT REPORTED None [place], [place] Bacteria, UA NOT REPORTED None [place], [place] Casts UA NOT REPORTED /LPF [place], [place] Crystals, UA 5 TO 10 Abnormal None /HPF [place] Crystals, UA CALCIUM OXALATE Abnormal None /HPF [place], [place] Epithelial Cells UA 0 TO 2 [place] Interpretation and review of laboratory results Abnormal [place] Mucus, UA TRACE Abnormal None [place] Other Observations UA NOT REPORTED NOT REQ. [place] RBC (U) [#/Vol] None [facility] [place] Renal Epithelial, UA NOT REPORTED 0 /HPF [place] Trichomonas, UA NOT REPORTED None [facility] [place] WBC, UA 0 TO 2 [place] Yeast, UA NOT REPORTED None [place], [place] - [place] UA w/Reflex Cultureon 2019 Acetoacetic Acid,Ur Negative Normal NEG [facility] Comment on above: Performed By: #### H IVCMB, PHEP #### [address] [address] Scow Hand: Dom Fowler MD #### CP #### [address] [place] [id number] Scow Hand: Shakeel Graham MD Bilirubin, SemiQt,Ur Negative Normal [facility] Comment on above: Performed By: #### H IVCMB, PHEP #### [address] [address] Scow Hand: Dom Fowler MD #### CP #### [address] [place] [phone] Scow Hand: Shakeel Graham MD Color (U) YELLOW Normal [facility] Comment on above: Performed By: #### H IVCMB, PHEP #### [address] [address] Scow Hand: Dom Fowler MD #### CP #### [facility] [address] [place] [address] [place] [address] Scow Hand: Shakeel Graham MD Glucose Ql (U) Negative Normal NEG [facility] Comment on above: Performed By: #### H IVCMB, PHEP #### [address] [address] Scow Hand: Dom Fowler MD #### CP #### [facility] [address] [place] [address] [place], [place] [phone] Scow Hand: Shakeel Graham MD Hemoglobin, Ur Negative Normal NEG [facility] Comment on above: Performed By: #### H IVCMB, PHEP #### [address] [address] Scow Hand: Dom Fowler MD #### CP #### [address] [place] [address] Scow Hand: Shakeel Graham MD Leukocyte esterase Test strip Ql (U) Negative Normal NEG [facility] Comment on above: Performed By: #### H IVCMB, PHEP #### [address] [address] Scow Hand: Dom Fowler MD #### CP #### [address] [place] [address] Scow Hand: Shakeel Graham MD Nitrite,Ur Negative Normal NEG [facility] Comment on above: Performed By: #### H IVCMB, PHEP #### [address] [address] Scow Hand: Dom Fowler MD #### CP #### [address] [place] [address] Scow Hand: Shakeel Graham MD pH (U) 6.5 [pH] Normal 5.0-9.0 [facility] Comment on above: Performed By: #### H IVCMB, PHEP #### [address] [address] Scow Hand: Dom Fowler MD #### CP #### [facility] [address] [place] [address] Scow Hand: Shakeel Graham MD Protein Ql (U) Negative Normal NEG [facility] Comment on above: Performed By: #### H IVCMB, PHEP #### [facility] [address] [place] [address] Scow Hand: Dom Fowler MD #### CP #### [address] [place] [address] Scow Hand: Shakeel Graham MD Specific gravity (U) [Rel density] 1.025 High 1.010-1.020 [facility] Comment on above: Performed By: #### H IVCMB, PHEP #### [facility] [address] [place] [address] Scow Hand: Dom Fowler MD #### CP #### [address] [place] [address] Scow Hand: Shakeel Graham MD Turbidity CLEAR Normal CLEAR [facility] Comment on above: Performed By: #### H IVCMB, PHEP #### [address] [address] Scow Hand: Dom Fowler MD #### CP #### [address] [place] [address] Scow Hand: Shakeel Graham MD Urobilinogen,Ur Normal Normal NORM [facility] Comment on above: Performed By: #### H IVCMB, PHEP #### [address] [address] Scow Hand: Dom Fowler MD #### CP #### [address] [place] [address] Scow Hand: Shakeel Graham MD Comment NOT REPORTED Normal [facility] Comment on above: Performed By: #### H IVCMB, PHEP #### [facility] [address] [place] [address] Scow Hand: Dom Fowler MD #### CP #### [address] [place] [address] Scow Hand: Shakeel Graham MD Urinalysis Reflex to Culture on 04-26-2020 Bilirubin Urine Negative NEGATIVE [facility], [place] Color, UA YELLOW YELLOW [facility], [place] Glucose, Ur Negative NEGATIVE [facility], [place] Interpretation and review of laboratory results Abnormal [place], [place] Ketones Ql (U) Negative NEGATIVE [facility], [place] Leukocyte esterase Test strip Ql (U) Negative NEGATIVE [facility], [place] Nitrite, Urine Negative NEGATIVE [facility], [place] pH, UA 6.5 [place], [place] Protein (U) [Mass/Vol] Negative NEGATIVE [facility], [place] Specific [place], UA 1.025 High [facility], [place] Turbidity UA CLEAR CLEAR [place], [place] Urinalysis Comments NOT REPORTED [facility], [place] Urine Hgb Negative NEGATIVE [facility], [place] Urobilinogen, Urine Normal Normal [place], [place] Urinalysis,Microon 0 ----- Normal [facility] Comment on above: Performed By: #### H IVCMB, PHEP #### [address] [place] [address] Scow Hand: Dom Fowler MD #### CP #### [address] [place] [address] Scow Hand: Shakeel Graham MD Crystals LM Nom (Urine sed) CALCIUM OXALATE Abnormal NONE [facility] Comment on above: Result Comment: 5 TO 10 Performed By: #### H IVCMB, PHEP #### [facility] [address] [place] [address] Scow Hand: Dom Fowler MD #### CP #### [facility] [address] [place] [address] Scow Hand: Shakeel Graham MD Epithelial cells LM.HPF (Urine sed) [#/Area] 0 TO 2 Normal 0-25 [facility] Comment on above: Performed By: #### H IVCMB, PHEP #### [address] [address] Scow Hand: Dom Fowler MD #### CP #### [address] [place], [place] [phone] Scow Hand: Shakeel Graham MD Mucus Strands TRACE Abnormal [facility] Comment on above: Performed By: #### H IVCMB, PHEP #### [address] [address] Scow Hand: Dom Fowler MD #### CP #### [address] [place] [phone] Scow Hand: Shakeel Graham MD RBC (U) [#/Vol] None Normal 0-2 [facility] Comment on above: Performed By: #### H IVCMB, PHEP #### [address] [address] Scow Hand: Dom Fowler MD #### CP #### [address] [place] [address] Scow Hand: Shakeel Graham MD WBC (U) [#/Vol] 0 TO 2 Normal 0-5 [facility] Comment on above: Performed By: #### H IVCMB, PHEP #### [address] [address] Scow Hand: Dom Fowler MD #### CP #### [address] [place], [place] [phone] Scow Hand: Shakeel Graham MD Amorphous sediment LM Ql (Urine sed) NOT REPORTED Normal [facility] Comment on above: Performed By: #### H IVCMB, PHEP #### [address] [address] Scow Hand: Dom Fowler MD #### CP #### [facility] [address] [place] [address] Scow Hand: Shakeel Graham MD Bacteria LM.HPF (Urine sed) [#/Area] NOT REPORTED Normal NONE [facility] Comment on above: Performed By: #### H IVCMB, PHEP #### [address] [address] Scow Hand: Dom Fowler MD #### CP #### [address] [place] [address] Scow Hand: Shakeel Graham MD Casts LM.LPF (Urine sed) [#/Area] NOT REPORTED Normal [facility] Comment on above: Performed By: #### H IVCMB, PHEP #### [address] [address] Scow Hand: Dom Fowler MD #### CP #### [address] [place] [address] Scow Hand: Shakeel Graham MD Epithelial, Renal NOT REPORTED Normal 0 [facility] Comment on above: Performed By: #### H IVCMB, PHEP #### [address] [address] Scow Hand: Dom Fowler MD #### CP #### [address] [place] [address] Scow Hand: Shakeel Graham MD Other Observations NOT REPORTED Normal NREQ [facility] Comment on above: Performed By: #### H IVCMB, PHEP #### [address] [address] Scow Hand: Dom Fowler MD #### CP #### [facility] [address] [place], [place] [phone] Scow Hand: Shakeel Graham MD Trichomonas NOT REPORTED Normal NONE [facility] Comment on above: Performed By: #### H IVCMB, PHEP #### [facility] [address] [place], [place] [id number] Scow Hand: Dom Fowler MD #### CP #### [facility] [address] [place] [phone] Scow Hand: Shakeel Graham MD Yeast LM Ql (Urine sed) NOT REPORTED Normal NONE [facility] Comment on above: Performed By: #### H IVCMB, PHEP #### [facility] [address] [place], [place] [id number] Scow Hand: Dom Fowler MD #### CP #### [facility] [address] [place] [address] Dr. [place] [phone] Scow Hand: Shakeel Graham MD ED Clinical Summaryon 2019 ED Clinical Summary [address] [address] ED Clinical Summary Person Information Name: Kathryn Ervin[facility] Age: 25 Years : 1995 Sex: Female PCP: Marital Status: Single Phone: Race: White Ethnicity: Not or Language: Kazakh Visit Reason: Drug withdrawal; Drug withdrawal Acuity: 3 Enc Type: Emergency Med Service: Emergency Medicine Arrival: 03/16/2020 20:10:45 Discharge: 03/17/2020 02:12:00 LOS: 000 06:02 Checkin: 03/16/2020 20:10:45 Checkout: 03/17/2020 02:12:00 Dispo Type: Home or Self Care Address: [address] [place] [address] Provider Notes: Diagnosis: 1:Affective disorder; 2:Drug usage [...] range between ( 27.2 and 40.8 ) [place] Auto: 11.4 % -- Normal range between [...] range between ( 36.0 and 46.0 ) [place] Absolute: 1.5 x10 MCH: 27.4 pg -- [...] 03/16/2020 20:20:41 Follow up: With: Address: When: [facility] In [place], [place] Within 1 to 2 days Discharge Orders: Discharge Patient 03/17/20 1:45:00 EDT, Discharge to Home, Self Patient Education Information: Understanding Methamphetamine Abuse and Addiction; Treating Affective (Mood) Disorders [facility] Poison Help line: . [facility] Mental Health Hotline: [place] Tobacco Quit Line: [place], [place]) [address]: [phone] [place], [place]) [address]: [phone] [facility] [address] [place], [place]: [phone] Normal [facility] hCG Quantitativeon 0 Beta hCG Qnt 1.7 mIU/mL Normal 0.0-4.9 [facility] Comment on above: Result Comment: 0.0 - 4.9 Negative for 5.0 - 25.0 Indeterminant for : Suggest repeat in 72 hours. >25.0 Positive for Performed By: #### H CG ####[place] [address] .UA Microscp Aon 03-16-2020 UA Hyline Cast Qual >20 Abnormal Negative [facility] Comment on above: Performed By: #### C [id number] ####[place] [address] UA Mucus Present Abnormal Absent [facility] Comment on above: Performed By: #### C [id number] ####[place] [id number] UA RBC Quant 12 /HPF High 0-5 [facility] Comment on above: Performed By: #### C [id number] ####[address] [address] UA Squepi Cells Quant 6 /HPF Normal 0-29 [facility] Comment on above: Performed By: #### C [id number] ####[address] [address] UA WBC Quant 7 /HPF High 0-5 [facility] Comment on above: Performed By: #### C [id number] ####[facility] [place] [address] .eGFRon 03-16-2020 eGFR AA 52 mL/min/1.73m? Low >=60 [facility] Comment on above: Result Comment: Resu lt = 0-14.9 mL/min/1.73 m2 Kidney failure or Dialysis Result = 15-29 mL/min/1.73 m2 Severe decrease in GFR Result = 30-59 mL/min/1.73 m2 Moderate decrease in GFR Result >= 60 mL/min/1.73 m2 Normal or increased GFR Performed By: #### E GFR #### [address] [address] eGFR Non-AA 43 mL/min/1.73m? Low >=60 [facility] Comment on above: Result Comment: Resu [...] dosing. Performed By: #### E GFR #### [address] [address] CBC w/ Diffon 03-16-2020 Erythrocyte distribution width (RBC) [Ratio] 15.9 % High 11.6-14.8 [facility] Comment on above: Performed By: #### C BC #### [address] [address] Hematocrit (Bld) [Volume fraction] 37.5 % Normal 36.0-46.0 [facility] Comment on above: Performed By: #### C BC #### [address] [address] Hemoglobin (Bld) [Mass/Vol] 12.5 g/dL Normal 12.0-16.0 [facility] Comment on above: Performed By: #### C BC #### [address] [address] MCH (RBC) [Entitic mass] 27.4 pg Normal 27.0-35.0 [facility] Comment on above: Performed By: #### C BC #### [address] [address] MCHC (RBC) [Mass/Vol] 33.2 % Normal 31.0-37.0 [facility] Comment on above: Performed By: #### C BC #### [address] [address] MCV (RBC) [Entitic vol] 82.4 fL Normal 80.0-100.0 [facility] Comment on above: Performed By: #### C BC #### [address] [address] Platelet mean volume (Bld) [Entitic vol] 9.4 fL Normal 6.7-10.6 [facility] Comment on above: Performed By: #### C BC #### [address] [address] Platelets (Bld) [#/Vol] 307 x10*3/mcL Normal 150-350 [facility] Comment on above: Performed By: #### C BC #### [address] [address] RBC (Bld) [#/Vol] 4.55 x10*6/mcL Normal 3.80-5.20 [facility] Comment on above: Performed By: #### C BC #### [address] [address] WBC (Bld) [#/Vol] 12.9 x10*3/mcL High 4.5-11.0 [facility] Comment on above: Performed By: #### C BC #### [address] [address] CMPon 03-16-2020 Albumin [Mass/Vol] 5.2 g/dL High 3.2-4.9 [facility] Comment on above: Result Comment: [facility] Laboratory updated the methodology used for albumin testing on 04/24/18. Albumin measurement was performed using a bromcresol purple dye-binding assay. Performed By: #### C OMP #### [address] [address] Albumin/Globulin [Mass ratio] 1.5 {ratio} Normal 1.1-2.2 [facility] Comment on above: Performed By: #### C OMP #### [address] [address] Alk Phos 47 IU/L Normal 32-91 [facility] Comment on above: Performed By: #### C OMP #### [address] [address] ALT [Catalytic activity/Vol] 19 U/L Normal 14-54 [facility] Comment on above: Performed By: #### C OMP #### [address] [address] Anion gap [Moles/Vol] 22 mmol/L High 7-17 [facility] Comment on above: Performed By: #### C OMP #### [address] [address] AST [Catalytic activity/Vol] 31 U/L Normal 15-41 [facility] Comment on above: Performed By: #### C OMP #### [address] [place] [address] Bili Total 1.4 mg/dL High 0.3-1.2 [facility] Comment on above: Performed By: #### C OMP #### [address] [address] Calcium [Mass/Vol] 10.2 mg/dL Normal 8.5-10.3 [facility] Comment on above: Performed By: #### C OMP #### [address] [address] Chloride [Moles/Vol] 100 mmol/L Normal 98-110 [facility] Comment on above: Performed By: #### C OMP #### [address] [address] CO2 [Moles/Vol] 19 mmol/L Low 22-32 [facility] Comment on above: Performed By: #### C OMP #### [address] [address] Creatinine [Mass/Vol] 1.47 mg/dL High 0.44-1.03 [facility] Comment on above: Performed By: #### C OMP #### [address] [address] Glucose [Mass/Vol] 85 mg/dL Normal 70-99 [facility] Comment on above: Performed By: #### C OMP #### [address] [address] Potassium [Moles/Vol] 3.7 mmol/L Normal 3.4-4.8 [facility] Comment on above: Performed By: #### C OMP #### [address] [address] Protein [Mass/Vol] 8.7 g/dL High 6.5-8.1 [facility] Comment on above: Performed By: #### C OMP #### [address] [address] Sodium [Moles/Vol] 137 mmol/L Normal 133-142 [facility] Comment on above: Performed By: #### C OMP #### [address] [address] Urea nitrogen [Mass/Vol] 25 mg/dL Normal 8-26 [facility] Comment on above: Performed By: #### C OMP #### [address] [address] Urea nitrogen/Creatinine [Mass ratio] 17.0 mg/mg Normal 10.0-20.0 [facility] Comment on above: Performed By: #### C OMP #### [address] [address] CPKon 03-16-2020 Creatine Phosphokinase 439 IU/L High 38-234 [facility] Comment on above: Performed By: #### C P #### [address] [address] Diff Autoon 03-16-2020 Baso Absolute 0.0 x10*3/mcL Normal 0.0-0.2 [facility] Comment on above: Performed By: #### . Automated Diff #### [address] [address] Basophils/100 WBC (Bld) 0.4 % Normal 0.0-1.5 [facility] Comment on above: Performed By: #### . Automated Diff #### [address] [address] Eos Absolute 0.0 x10*3/mcL Normal 0.0-0.4 [facility] Comment on above: Performed By: #### . Automated Diff #### [address] [address] Eosinophils/100 WBC (Bld) 0.1 % Normal 0.0-5.4 [facility] Comment on above: Performed By: #### . Automated Diff #### [address] [address] Lymphocytes (Bld) [#/Vol] 1.4 x10*3/mcL Normal 1.0-4.8 [facility] Comment on above: Performed By: #### . Automated Diff #### [address] [address] Lymphocytes/100 WBC (Bld) 10.8 % Low 27.2-40.8 [facility] [facility] Comment on above: Performed By: #### . Automated Diff #### [address] [address] [place] Absolute 1.5 x10*3/mcL High 0.1-1.1 [facility] Comment on above: Performed By: #### . Automated Diff #### [facility] [address] [place] [address] Monocytes/100 WBC (Bld) 11.4 % Normal 3.7-11.9 [facility] Comment on above: Performed By: #### . Automated Diff #### [facility] [address] [place] [address] Neutro Absolute 10.0 x10*3/mcL High 1.8-7.7 [facility] Comment on above: Performed By: #### . Automated Diff #### [facility] [address] [place] [address] Neutro Auto 77.3 % High 47.2-70.8 [facility] Comment on above: Performed By: #### . Automated Diff #### [address] [address] ED Note-Nursingon 03-16-2020 ED Note-Nursing Lab called about add ons Electronically signed by Barbara Holman 03/16/20 20:49 EDT Normal [facility] ED Note-Physicianon 03-16-20 ED Note-Physician Chief Complaint [...] that she has residential set up at [facility] in [place], [place] but she has to detox first. [...] as well. She was seen by Alonso, oncology social worker who has arranged for her to go to [facility] tomorrow as patient is interested in treatment. Verbally contracted to safety and filled out a safety plan. Alonso with social work spoke with director dental services, Jelena who will arrange for further follow-up when they arrive tomorrow. Family is agreeable with plan. Patient has good support. They will return if any changes of symptoms or concern. Silvia Castañeda scribing for and in the presence of Dr. Cornell. Scribe Attestation: The information in this document, created by the medical psychotherapist for me, accurately reflects the services I [...] High Lymph Auto 03/16/20 20:39 10.8 Low [place] Auto 03/16/20 20:39 11.4 Eos Auto 03/16/20 20:39 0.1 Basophil Auto 03/16/20 20:39 0.4 Neutro Absolute 03/16/20 20:39 10.0 High Lymph Absolute 03/16/20 20:39 1.4 [place] Absolute 03/16/20 20:39 1.5 High Eos Absolute [...] Lima Cornell MD 03/17/2020 04:16 EDT Normal [facility] Ethanolon 03-16-2020 Ethanol [Mass/Vol] mg/dL Normal <=9 [facility] Comment on above: Result Comment: To c onvert mg/dL to g/dL, divide result by 1,000. Legal limit of intoxication is 80 mg/dL (0.08 g/dL). Performed By: #### A LC #### [address] [address] UA w Culture if Indon 2019 Color (U) Terri Normal [facility] Comment on above: Performed By: #### U CI #### [address] [address] Glucose (U) [Mass/Vol] Negative Normal Negative [facility] Comment on above: Performed By: #### U CI #### [address] [address] Ketones Ql (U) 20 mg/dL Abnormal Negative [facility] Comment on above: Performed By: #### U CI #### [address] [address] UA Blood Small Abnormal Negative [facility] Comment on above: Performed By: #### U CI #### [address] [address] UA Clarity Cloudy Normal [facility] Comment on above: Performed By: #### U CI #### [address] [address] UA Leukocyte Esterase Trace Abnormal Negative [facility] Comment on above: Performed By: #### U CI #### [address] [address] UA Nitrite Negative Normal Negative [facility] Comment on above: Performed By: #### U CI #### [address] [address] UA pH 5.0 Normal 4.5 - 7.8 [facility] Comment on above: Performed By: #### U CI #### [address] [address] UA Protein 100 mg/dL Abnormal Negative [facility] Comment on above: Performed By: #### U CI #### [address] [address] UA Source Clean Catch Normal [facility] Comment on above: Performed By: #### U CI #### [address] [address] UA Spec Grav 1.025 Normal 1.003-1.035 [facility] Comment on above: Performed By: #### U CI #### [address] [address] UA Urobilinogen 0.2 mg/dL Normal 0.2 - 1.0 [facility] Comment on above: Performed By: #### U CI #### [place] [id number] Urobilinogen Qn (U) Small Abnormal Negative [facility] Comment on above: Performed By: #### U CI #### [address] [address] UDS Compon 03-16-2020 Creatinine [Mass/Vol] mg/dL Normal [facility] Comment on above: Performed By: #### C [id number] #### [address] [address] Ur Amph Scrn Positive Abnormal NEG = <1000 [facility] Comment on above: Result Comment: This unconfirmed positive screening result is to be used for medical treatment purposes only. Unconfirmed screening results must not be used for non-medical purposes. (e.g. employment testing, legal testing). Performed By: #### C [id number] #### [address] [address] Ur Anastasia Scrn Negative Normal NEG = <200 [facility] Comment on above: Performed By: #### C [id number] #### [facility] [address] [place] [address] Ur Benzodia Scrn Negative Normal NEG = <200 [facility] Comment on above: Performed By: #### C [id number] #### [facility] [address] [place] [address] Ur Cannab Scrn Negative Normal NEG = <50 [facility] Comment on above: Performed By: #### C [id number] #### [facility] [address] [place] [address] [place] [address] Ur Cocaine Scrn Negative Normal NEG = <300 [facility] Comment on above: Performed By: #### C [id number] #### [address] [place] [address] Ur Methadone Scn Negative Normal NEG = <300 [facility] Comment on above: Performed By: #### C [id number] #### [address] [place] [address] Ur Opiate Scrn Negative Normal NEG = <300 [facility] Comment on above: Performed By: #### C [id number] #### [facility] [address] [place] [address], [place] [address] Ur Oxy Screen Negative Normal NEG = <100 [facility] Comment on above: Performed By: #### C [id number] #### [facility] [address] [place] [address] [place] [address] Ur Oxy Scrn Qnt 54 ng/mL Normal <=99 [facility] Comment on above: Performed By: #### C [id number] #### [facility] [address] [place] [address] [place] [address] Ur PCP Scrn Negative Normal NEG = <25 [facility] Comment on above: Performed By: #### C [id number] #### [address] [place] [address] UA pH 5.0 Normal 4.5 - 7.8 [facility] Comment on above: Performed By: #### C [id number] #### [facility] [address] [place] [address] UA Spec Grav 1.024 Normal 1.003-1.035 [facility] Comment on above: Performed By: #### C [id number] #### [facility] [address] [place] [address] Chlamydia/GC DNA, Uron 11-23 Chlamydia Probe, Ur Negative Normal NEG [facility] Comment on above: Result Comment: [...] Performed By: #### H IVCMB, PHEP #### [address] [id number] Scow Hand: Dom Fowler MD #### CP #### [facility] [address] [place], [facility] Scow Hand: Shakeel Graham MD Gonorrhea Probe, Ur Negative Normal NEG [facility] Comment on above: Result Comment: [...] Performed By: #### H IVCMB, PHEP #### [place] [address] [place], [place] [id number] Scow Hand: Dom Fowler MD #### CP #### [facility] [address] [place] [address] Scow Hand: Shakeel Graham MD Cult,Urineon 11-22-2019 Cult,Urine Specimen Description .VOIDED URINE Special Requests NOT REPORTED Culture NO SIGNIFICANT GROWTH Report Status FINAL 11/22/2019 Normal [facility] Comment on above: Performed By: #### H IVCMB, PHEP #### [facility] [address] [place] [address] Scow Hand: Dom Fowler MD #### CP #### [facility] [address] [place] [address] Scow Hand: Shakeel Graham MD HIV Ag/Abon 11-21-2019 HIV Ag/Ab NONREACTIVE Normal NR [facility] Comment on above: Result Comment: No l aboratory evidence of HIV infection. If acute HIV infection is suspected, consider testing for HIV-1 RNA. Performed By: #### H IVCMB, PHEP #### [place] [address] [place] [address] Scow Hand: Dom Fowler MD #### CP #### [facility] [address] [place] [address] Scow Hand: Shakeel Graham MD HIV Screenon 11-21-2019 HIV Ag/Ab NONREACTIVE NONREACTIVE [place], [place] Comment on above: No laboratory eviden ce of HIV infection. If acute HIV infection is suspected, consider testing for HIV-1 RNA. Hep C Abon 11-21-2019 Hep C Ab REACTIVE Abnormal NR [facility] Comment on above: Result Comment: [...] Performed By: #### H IVCMB, PHEP #### [facility] [address] [place] [address] Scow Hand: Dom Fowler MD #### CP #### [facility] [address] [place] [address] [place] [address] Scow Hand: Shakeel Graham MD Profileon 0 Hep B Surf Ag NONREACTIVE Normal NR [facility] Comment on above: Performed By: #### H IVCMB, PHEP #### [place] [address] [place] [address] Scow Hand: Dom Fowler MD #### CP #### [address] [place] [address] Scow Hand: Shakeel Graham MD T.pallidum Ab Screen NONREACTIVE Normal NR [facility] Comment on above: Result Comment: T. pallidum antibodies are not detected. There is no serological evidence of infection with T. pallidum (early primary syphilis cannot be excluded). Retest in 2-4 weeks if syphilis is clinically suspect. Performed By: #### H IVCMB, PHEP #### [address] [address] Scow Hand: Dom Fowler MD #### CP #### [address] [place], [place] [id number] Scow Hand: Shakeel Graham MD Rubella Ab, IgG 323.1 IU/mL Normal [facility] Comment on above: Result Comment: REFERENCE RANGE: <5.0 NON-REACTIVE (non-immune) 5.0 TO 9.9 EQUIVOCAL >=10.0 REACTIVE (immune) Performed By: #### H IVCMB, PHEP #### [address] [address] Scow Hand: Dom Fowler MD #### CP #### [address] [place], [place] [id number] Scow Hand: Shakeel Graham MD HCG, Quanton 11-20-2019 HCG, Quant [id number] IU/L High <5 [facility] Comment on above: Result Comment: [...] Performed By: #### H IVCMB, PHEP #### [facility] [employer] [address] [place] [address] Scow Hand: Dom Fowler MD #### CP #### [facility] [address] [place] [address] Scow Hand: Shakeel Graham MD HCG, Quantitative, on 11-20-2019 hCG Quant [id number] High <5 IU/L [place], [place] Comment on above: Non-preg premeno <=5 Postmeno <=8 Male <=3 If HCG results do not concur with clinical observations, additional testing to confirm results is recommended. Elevated results not associated with may be found in patients with other diseases such as tumors of the germ cells (testis, ovaries, etc.), bladder, pancreas, stomach, lungs, and liver. Interpretation and review of laboratory results Abnormal [place], [place] Hepatitis C Antibodyon 11-19 Hepatitis C Ab REACTIVE Abnormal NONREACTIVE [place], [place] Comment on above: The hepatitis C [...] Interpretation and review of laboratory results Abnormal [place], [place] TYPE AND SCREENon 0 11-20-2019 ABO/Rh Positive [place], [place] Profileon 0 Abs. Basophil 0.03 k/uL Normal 0.00-0.20 [facility] Comment on above: Performed By: #### H IVCMB, PHEP #### [facility] [employer] [address] [place] [address] Scow Hand: Dom Fowler MD #### CP #### [facility] [address] [place] [address] Dr. [place] [id number] ( Scow Hand: Shakeel Graham MD Abs.Imm.Granulocyte <0.03 Normal 0.00-0.30 [facility] Comment on above: Performed By: #### H IVCMB, PHEP #### [place] [address] Scow Hand: Dom Fowler MD #### CP #### [address] [place] 9272911 ( Scow Hand: Shakeel Graham MD Abs.Neutrophil (Seg) 2.95 k/uL Normal 1.50-8.10 [facility] Comment on above: Performed By: #### H IVCMB, PHEP #### [place] [address] Scow Hand: Dom Fowler MD #### CP #### [address] [place] [id number] ( Scow Hand: Shakeel Graham MD Basophils/100 WBC (Bld) 1 % Normal 0-2 [facility] Comment on above: Performed By: #### H IVCMB, PHEP #### [place] [address] Scow Hand: Dom Fowler MD #### CP #### [facility] [address] [place] [address] [place] [address] Scow Hand: Shakeel Graham MD Eosinophils (Bld) [#/Vol] 0.09 10*3/uL Normal 0.00-0.44 [facility] Comment on above: Performed By: #### H IVCMB, PHEP #### [address] [address] Scow Hand: Dom Fowler MD #### CP #### [address] [place], [place] 1373783 Scow Hand: Shakeel Graham MD Eosinophils/100 WBC (Bld) 2 % Normal 1-4 [facility] Comment on above: Performed By: #### H IVCMB, PHEP #### [address] [address] Scow Hand: Dom Fowler MD #### CP #### [address] [place], [place] [id number] Scow Hand: Shakeel Graham MD Erythrocyte distribution width (RBC) [Ratio] 14.0 % Normal 11.8-14.4 [facility] Comment on above: Performed By: #### H IVCMB, PHEP #### [address] [id number] Scow Hand: Dom Fowler MD #### CP #### [address] [place], [place] [id number] Scow Hand: Shakeel Graham MD Hematocrit (Bld) [Volume fraction] 37.7 % Normal 36.3-47.1 [facility] Comment on above: Performed By: #### H IVCMB, PHEP #### [address] [address] Scow Hand: Dom Fowler MD #### CP #### [address] [place], [place] [phone] Scow Hand: Shakeel Graham MD Hemoglobin (Bld) [Mass/Vol] 11.8 g/dL Low 11.9-15.1 [facility] Comment on above: Performed By: #### H IVCMB, PHEP #### [address] [address] Scow Hand: Dom Fowler MD #### CP #### [address] [place] [id number] Scow Hand: Shakeel Graham MD Immature granulocytes (Bld) [#/Vol] 0 % Normal 0 [facility] Comment on above: Performed By: #### H IVCMB, PHEP #### [address] [address] Scow Hand: Dom Fowler MD #### CP #### [facility] [address] [place] [phone] Scow Hand: Shakeel Graham MD Lymphocytes (Bld) [#/Vol] 1.50 10*3/uL Normal 1.10-3.70 [facility] Comment on above: Performed By: #### H IVCMB, PHEP #### [address] [address] Scow Hand: Dom Fowler MD #### CP #### [facility] [address] [place] [address] [place] [phone] Scow Hand: Shakeel Graham MD Lymphocytes/100 WBC (Bld) 30 % Normal 24-43 [facility] Comment on above: Performed By: #### H IVCMB, PHEP #### [address] [address] Scow Hand: Dom Fowler MD #### CP #### [address] [place] 9272983 Scow Hand: Shakeel Graham MD MCH (RBC) [Entitic mass] 26.5 pg Normal 25.2-33.5 [facility] Comment on above: Performed By: #### H IVCMB, PHEP #### [address] [address] Scow Hand: Dom Fowler MD #### CP #### [facility] [address] [place] 9272983 Scow Hand: Shakeel Graham MD MCHC (RBC) [Mass/Vol] 31.3 g/dL Normal 28.4-34.8 [facility] Comment on above: Performed By: #### H IVCMB, PHEP #### [address] [address] Scow Hand: Dom Fowler MD #### CP #### [address] [place] 9272983 Scow Hand: Shakeel Graham MD MCV (RBC) [Entitic vol] 84.5 fL Normal 82.6-102.9 [facility] Comment on above: Performed By: #### H IVCMB, PHEP #### [address] [address] Scow Hand: Dom Fowler MD #### CP #### [address] [place] 9272983 Scow Hand: Shakeel Graham MD Monocytes (Bld) [#/Vol] 0.37 10*3/uL Normal 0.10-1.20 [facility] Comment on above: Performed By: #### H IVCMB, PHEP #### [address] [address] Scow Hand: Dom Fowler MD #### CP #### [address] [place] [phone] Scow Hand: Shakeel Graham MD Monocytes/100 WBC (Bld) 8 % Normal 3-12 [facility] Comment on above: Performed By: #### H IVCMB, PHEP #### [address] [address] Scow Hand: Dom Fowler MD #### CP #### [address] [place] [address] Scow Hand: Shakeel Graham MD Neutrophil (Seg) 59 % Normal 36-65 [facility] Comment on above: Performed By: #### H IVCMB, PHEP #### [place] [address] [place] [address] Scow Hand: Dom Fowler MD #### CP #### [facility] [address] [place], [place] 57[address]83 Scow Hand: Shakeel Graham MD NRBC Automated 0.0 per 100 WBC Normal 0.0 [facility] Comment on above: Performed By: #### H IVCMB, PHEP #### [address] [address] Scow Hand: Dom Fowler MD #### CP #### [facility] [address] [place] 9272983 Scow Hand: Shakeel Graham MD Platelet mean volume (Bld) [Entitic vol] 11.2 fL Normal 8.1-13.5 [facility] Comment on above: Performed By: #### H IVCMB, PHEP #### [address] [address] Scow Hand: Dom Fowler MD #### CP #### [facility] [address] [place] [address] [place] [phone] Scow Hand: Shakeel Graham MD Platelets (Bld) [#/Vol] 254 10*3/uL Normal 138-453 [facility] Comment on above: Performed By: #### H IVCMB, PHEP #### [address] [address] Scow Hand: Dom Fowler MD #### CP #### [facility] [address] [place] [address] [place], [place] [id number] Scow Hand: Shakeel Graham MD RBC (Bld) [#/Vol] 4.46 10*6/uL Normal 3.95-5.11 [facility] Comment on above: Performed By: #### H IVCMB, PHEP #### [address] [address] Scow Hand: Dom Fowler MD #### CP #### [facility] [address] [place] [address] [place] [address] Scow Hand: Shakeel Graham MD WBC (Bld) [#/Vol] 5.0 10*3/uL Normal 3.5-11.3 [facility] Comment on above: Performed By: #### H IVCMB, PHEP #### [address] [address] Scow Hand: Dom Fowler MD #### CP #### [address] [place] [address] Scow Hand: Shakeel Graham MD Auto Diff Performed NOT REPORTED Normal [facility] Comment on above: Performed By: #### H IVCMB, PHEP #### [address] [address] Scow Hand: Dom Fowler MD #### CP #### [address] [place] [address] Scow Hand: Shakeel Graham MD Platelets (Bld) [#/Vol] NOT REPORTED Normal [facility] Comment on above: Performed By: #### H IVCMB, PHEP #### [address] [address] Scow Hand: Dom Fowler MD #### CP #### [address] [place] [address] Scow Hand: Shakeel Graham MD RBC morphology finding Nom (Bld) NOT REPORTED Normal [facility] Comment on above: Performed By: #### H IVCMB, PHEP #### [address] [address] Scow Hand: Dom Fowler MD #### CP #### [address] [place] [address] Scow Hand: Shakeel Graham MD WBC Morphology NOT REPORTED Normal [facility] Comment on above: Performed By: #### H IVCMB, PHEP #### [address] [id number] Scow Hand: Dom Fowler MD #### CP #### [address] [place] [id number] Scow Hand: Shakeel Graham MD Type + Scrnon 11-19 Type + Scrn Negative Normal [facility] Comment on above: Performed By: #### H IVCMB, PHEP #### [address] [address] Scow Hand: Dom Fowler MD #### CP #### [address] [place] [id number] Scow Hand: Shakeel Graham MD Toxicology [facility] Amphetamine(s),Ur Negative Normal NEG [facility] Comment on above: Performed By: #### H IVCMB, PHEP #### [address] [address] Scow Hand: Dom Fowler MD #### CP #### [address] [place], [place] 1532083 Scow Hand: Shakeel Graham MD Barbiturate(s),Ur Negative Normal NEG [facility] Comment on above: Performed By: #### H IVCMB, PHEP #### [address] [address] Scow Hand: Dom Fowler MD #### CP #### [address] [place] [address] Scow Hand: Shakeel Graham MD Benzodiazepine(s) Negative Normal NEG [facility] Comment on above: Performed By: #### H IVCMB, PHEP #### [facility] [address] [place] [address] Scow Hand: Dom Fowler MD #### CP #### [facility] [address] [place] [address] Dr. [place], [place] [phone] Scow Hand: Shakeel Graham MD Buprenorphrine, Ur Negative Normal NEG [facility] Comment on above: Performed By: #### H IVCMB, PHEP #### [address] [address] Scow Hand: Dom Fowler MD #### CP #### [facility] [address] [place] [address] [place] [address] Scow Hand: Shakeel Graham MD Cannabinoid(s),Ur Negative Normal NEG [facility] Comment on above: Performed By: #### H IVCMB, PHEP #### [address] [address] Scow Hand: Dom Fowler MD #### CP #### [facility] [address] [place] [address] Dr. [place] [phone] Scow Hand: Shakeel Graham MD Cocaine Metabolite Negative Normal [facility] Comment on above: Performed By: #### H IVCMB, PHEP #### [address] [address] Scow Hand: Dom Fowler MD #### CP #### [facility] [address] [place] [address] Dr. [place], [place] [phone] Scow Hand: Shakeel Graham MD Methadone Ql (U) Negative Normal NEG [facility] Comment on above: Performed By: #### H IVCMB, PHEP #### [address] [address] Scow Hand: Dom Fowler MD #### CP #### [facility] [address] [place] [address] Dr. [place], [place] [phone] Scow Hand: Shakeel Graham MD Methamphetamine, Ur Negative Normal NEG [facility] Comment on above: Performed By: #### H IVCMB, PHEP #### [facility] [address] [place] [address] Scow Hand: Dom Fowler MD #### CP #### [address] [place], [place] [phone] Scow Hand: Shakeel Graham MD Opiate(s), Ur Negative Normal NEG [facility] Comment on above: Performed By: #### H IVCMB, PHEP #### [address] [address] Scow Hand: Dom Fowler MD #### CP #### [address] [place], [place] [phone] Scow Hand: Shakeel Graham MD Oxycodone, Urine Negative Normal NEG [facility] Comment on above: Performed By: #### H IVCMB, PHEP #### [facility] [address] [place] [address] Scow Hand: Dom Fowler MD #### CP #### [address] [place], [place] [phone] Scow Hand: Shakeel Graham MD Phencyclidine, Ur Negative Normal NEG [facility] Comment on above: Performed By: #### H IVCMB, PHEP #### [address] [address] Scow Hand: Dom Fowler MD #### CP #### [address] [place], [place] [phone] Scow Hand: Shakeel Graham MD Propoxyphene,Urine Negative Normal NEG [facility] Comment on above: Performed By: #### H IVCMB, PHEP #### [address] [address] Scow Hand: Dom Fowler MD #### CP #### [facility] [address] [place] [address] [place] [address] Scow Hand: Shakeel Graham MD Tricyclic antidepressants Screen Ql (U) Negative Normal NEG [facility] Comment on above: Result Comment: Drug screen results are to be used for medical purposes only. All positive results are unconfirmed. Testing for employment or legal uses should be sent to a reference laboratory for confirmation. Performed By: #### H IVCMB, PHEP #### [address] [address] Scow Hand: Dom Fowler MD #### CP #### [address] [place], [place] [id number] Scow Hand: Shakeel Graham MD Interpretive Info NOT REPORTED Normal [facility] Comment on above: Performed By: #### H IVCMB, PHEP #### [address] [address] Scow Hand: Dom Fowler MD #### CP #### [address] [place], [place] [phone] Scow Hand: Shakeel Graham MD MDMA, Urine NOT REPORTED Normal NEG [facility] Comment on above: Performed By: #### H IVCMB, PHEP #### [address] [address] Scow Hand: Dom Fowler MD #### CP #### [facility] [address] [place] [address] Dr. [place], [place] [phone] Scow Hand: Shakeel Graham MD Urine Drug Screen, Magda grieron 11-20-2019 Amphetamine Screen, Ur Negative NEGATIVE [facility] [place] Barbiturate Screen, Ur Negative NEGATIVE [facility] [place] Benzodiazepine Screen, Urine Negative NEGATIVE [facility] [place] Buprenorphine Urine Negative NEGATIVE [facility] Cannabinoid Scrn, Ur Negative NEGATIVE [facility] [place] Cocaine Metabolite, Urine Negative NEGATIVE [facility] MDMA, Urine NOT REPORTED NEGATIVE [facility] [place] Methadone Screen, Urine Negative NEGATIVE [facility] Methamphetamine, Urine Negative NEGATIVE [facility] Opiates, Urine Negative NEGATIVE [facility] [place] Oxycodone Screen, Ur Negative NEGATIVE [facility] [place] Phencyclidine, Urine Negative NEGATIVE [facility] [place] Propoxyphene, Urine Negative NEGATIVE [facility] Test Information NOT REPORTED [facility] [place] Tricyclic Antidepressants, Urine Negative NEGATIVE [facility] [place] Comment on above: Drug screen results are to be used for medical purposes only. All positive results are unconfirmed. Testing for employment or legal uses should be sent to a reference laboratory for confirmation. Chlamydia/GC DNA, Uron 06-20 Chlamydia Probe, Ur Negative Normal NEG [facility] Comment on above: Result Comment: [...] nucleic acid target. Performed By: #### U [facility] #### [address] [place] [address] Scow Hand: Dom Fowler MD Gonorrhea Probe, Ur Negative Normal NEG [facility] Comment on above: Result Comment: [...] target. Performed By: #### U CGP #### [address] [address] Scow Hand: Dom Fowler MD Cult,Urineon 06-20-2019 Cult,Urine Specimen Description .CLEAN CATCH URINE Special Requests NOT REPORTED Culture NO SIGNIFICANT GROWTH Report Status FINAL 06/20/2019 Normal [facility] Comment on above: Performed By: #### H IVCMB, PHEP #### [address] [address] Scow Hand: Dom Fowler MD #### CP #### [facility] [address] [place] [address] Scow Hand: Shakeel Graham MD HIV Ag/Abon 06-20-2019 HIV Ag/Ab NONREACTIVE Normal [facility] Comment on above: Result Comment: No l aboratory evidence of HIV infection. If acute HIV infection is suspected, consider testing for HIV-1 RNA. Performed By: #### A HCV, HIVCMB #### [address] [address] Scow Hand: Dom Fowler MD Hep C Abon 06-20-2019 Hep C Ab REACTIVE Abnormal [facility] Comment on above: Result Comment: The [...] Performed By: #### A HCV, HIVCMB #### [address] [address] Scow Hand: Dom Fowler MD Profileon 9 T.pallidum Ab Screen NONREACTIVE Normal [facility] Comment on above: Result Comment: T. pallidum antibodies are not detected. There is no serological evidence of infection with T. pallidum (early primary syphilis cannot be excluded). Retest in 2-4 weeks if syphilis is clinically suspect. Performed By: #### P RENAT #### [address] [place] [address] Scow Hand: Dom Fowler MD [facility] [address] [place] [address] Dr. Felix, [place] [id number] Scow Hand: Shakeel Graham MD Hep B Surf Ag NONREACTIVE Normal NR [facility] Comment on above: Performed By: #### P RENAT #### [address] [address] Scow Hand: Dom Fowler MD [address] [place] [id number] Scow Hand: Shakeel Graham MD Rubella Ab, IgG 286.1 IU/mL Normal [facility] Comment on above: Result Comment: REFERENCE RANGE: <5.0 NON-REACTIVE (non-immune) 5.0 TO 9.9 EQUIVOCAL >=10.0 REACTIVE (immune) Performed By: #### P RENAT #### [address] [address] Scow Hand: Dom Fowler MD [address] Felix, [facility] Scow Hand: Shakeel Graham MD HCG, Quanton 06-19-2019 HCG, Quant [id number] IU/L High <5 [facility] Comment on above: Result Comment: [...] liver. Performed By: #### B HCG #### [facility] [address] [place] [address] [place] [address] Scow Hand: Shakeel Graham MD HCG, Quantitative, on 06-19-2019 hCG Quant [id number] High <5 IU/L [place] Comment on above: Non-preg premeno <=5 Postmeno <=8 Male <=3 If HCG results do not concur with clinical observations, additional testing to confirm results is recommended. Elevated results not associated with may be found in patients with other diseases such as tumors of the germ cells (testis, ovaries, etc.), bladder, pancreas, stomach, lungs, and liver. Interpretation and review of laboratory results Abnormal [place] HIV Screenon 06-19-2019 HIV Ag/Ab NONREACTIVE NONREACTIVE [place] Comment on above: No laboratory eviden ce of HIV infection. If acute HIV infection is suspected, consider testing for HIV-1 RNA. Hepatitis C Antibodyon 06-19 Hepatitis C Ab REACTIVE Abnormal NONREACTIVE [facility] [place] Comment on above: The hepatitis C [...] Interpretation and review of laboratory results Abnormal [place] PROFILE Ion 019 Basophils (Bld) [#/Vol] 10*3/uL [place] Basophils/100 WBC (Bld) 1 % 0 - 2 % [place] Differential Type NOT REPORTED [place] Eosinophils (Bld) [#/Vol] 0.09 10*3/uL [place] Eosinophils/100 WBC (Bld) 2 % 1 - 4 % [place] Erythrocyte distribution width (RBC) [Ratio] 15.7 % High 11.8 - 14.4 % [place] Hematocrit (Bld) [Volume fraction] 36.5 % 36.3 - 47.1 % [place] Hemoglobin (Bld) [Mass/Vol] 11.2 g/dL Low 11.9 - 15.1 g/dL [place] Hepatitis B Surface Ag NONREACTIVE NONREACTIVE [place] Immature granulocytes (Bld) [#/Vol] 0 % 0 [place] Immature granulocytes (Bld) [#/Vol] 10*3/uL [place] Interpretation and review of laboratory results Abnormal [place] Lymphocytes (Bld) [#/Vol] 1.98 10*3/uL [place] Lymphocytes/100 WBC (Bld) 46 % High 24 - 43 % [place] MCH (RBC) [Entitic mass] 25.6 pg 25.2 - 33.5 pg [place] MCHC (RBC) [Mass/Vol] 30.7 g/dL 28.4 - 34.8 g/dL [place] MCV (RBC) [Entitic vol] 83.3 fL 82.6 - 102.9 fL [place] Monocytes (Bld) [#/Vol] 0.37 10*3/uL [place] Monocytes/100 WBC (Bld) 9 % 3 - 12 % [place] Platelet mean volume (Bld) [Entitic vol] 11.6 fL 8.1 - 13.5 fL [place] Platelets (Bld) [#/Vol] NOT REPORTED [place] Platelets (Bld) [#/Vol] 196 10*3/uL [place] RBC (Bld) [#/Vol] 4.38 10*6/uL 3.95 - 5.1 1 m/uL [place] RBC morphology finding Nom (Bld) NOT REPORTED [place] Rubella virus IgG Ql (S) 286.1 IU/mL [place] Comment on above: REFERENCE RANGE: <5.0 NON-REACTIVE (non-immune) 5.0 TO 9.9 EQUIVOCAL >=10.0 REACTIVE (immune) Segmented neutrophils/100 WBC (Bld) 42 % 36 - 65 % [place] Segs Absolute 1.75 [place] T. pallidum, IgG NONREACTIVE NONREACTIVE [place] Comment on above: T. pallidum antibodies are not detected. There is no serological evidence of infection with T. pallidum (early primary syphilis cannot be excluded). Retest in 2-4 weeks if syphilis is clinically suspect. WBC (Bld) [#/Vol] 4.2 10*3/uL [place] WBC (Bld) [#/Vol] 0.0 10*3/uL 0.0 per 100 WBC [place] WBC Morphology NOT REPORTED [place] TYPE AND SCREENon 1 ABO/Rh Positive [place] Profileon 9 Abs. Basophil <0.03 Normal 0.00-0.20 [facility] Comment on above: Performed By: #### P RENAT #### [address] [address] Scow Hand: Dom Fowler MD [address] [place] [phone] Scow Hand: Shakeel Graham MD Abs.Imm.Granulocyte <0.03 Normal 0.00-0.30 [facility] Comment on above: Performed By: #### P RENAT #### [address] [address] Scow Hand: Dom Fowler MD [address] [place] [phone] Scow Hand: Shakeel Graham MD Abs.Neutrophil (Seg) 1.75 k/uL Normal 1.50-8.10 [facility] Comment on above: Performed By: #### P RENAT #### [address] [address] Scow Hand: Dom Fowler MD [address] [place] [id number] Scow Hand: Shakeel Graham MD Basophils/100 WBC (Bld) 1 % Normal 0-2 [facility] Comment on above: Performed By: #### P RENAT #### [address] [address] Scow Hand: Dom Fowler MD [address] Felix [facility]83 Scow Hand: Shakeel Graham MD Eosinophils (Bld) [#/Vol] 0.09 10*3/uL Normal 0.00-0.44 [facility] Comment on above: Performed By: #### P RENAT #### [address] [address] Scow Hand: Dom Fowler MD [address] [place] [phone] Scow Hand: Shakeel Graham MD Eosinophils/100 WBC (Bld) 2 % Normal 1-4 [facility] Comment on above: Performed By: #### P RENAT #### [address] [address] Scow Hand: Dom Fowler MD [address] [place] [phone] Scow Hand: Shakeel Graham MD Erythrocyte distribution width (RBC) [Ratio] 15.7 % High 11.8-14.4 [facility] Comment on above: Performed By: #### P RENAT #### [address] [address] Scow Hand: Dom Fowler MD [address] [place] [phone] Scow Hand: Shakeel Graham MD Hematocrit (Bld) [Volume fraction] 36.5 % Normal 36.3-47.1 [facility] Comment on above: Performed By: #### P RENAT #### [address] [address] Scow Hand: Dom Fowler MD [address] [place] [phone] Scow Hand: Shakeel Graham MD Hemoglobin (Bld) [Mass/Vol] 11.2 g/dL Low 11.9-15.1 [facility] Comment on above: Performed By: #### P RENAT #### [address] [place] [address] Scow Hand: Dom Fowler MD [facility] [address] [place] [address] Dr. [place] [phone] Scow Hand: Shakeel Graham MD Immature granulocytes (Bld) [#/Vol] 0 % Normal 0 [facility] Comment on above: Performed By: #### P RENAT #### [address] [address] Scow Hand: Dom Fowler MD [facility] [address] [place] [address] Dr. [place] [phone] Scow Hand: Shakeel Graham MD Lymphocytes (Bld) [#/Vol] 1.98 10*3/uL Normal 1.10-3.70 [facility] Comment on above: Performed By: #### P RENAT #### [address] [address] Scow Hand: Dom Fowler MD [address] [place] [address] Scow Hand: Shakeel Graham MD Lymphocytes/100 WBC (Bld) 46 % High 24-43 [facility] Comment on above: Performed By: #### P RENAT #### [address] [address] Scow Hand: Dom Fowler MD [facility] [address] [place] [address] [place] [phone] Scow Hand: Shakeel Graham MD MCH (RBC) [Entitic mass] 25.6 pg Normal 25.2-33.5 [facility] Comment on above: Performed By: #### P RENAT #### [address] [address] Scow Hand: Dom Fowler MD [address] [place], [place] [phone] Scow Hand: Shkaeel Graham MD MCHC (RBC) [Mass/Vol] 30.7 g/dL Normal 28.4-34.8 [facility] Comment on above: Performed By: #### P RENAT #### [address] [address] Scow Hand: Dom Fowler MD [address] [place] [phone] Scow Hand: Shakeel Graham MD MCV (RBC) [Entitic vol] 83.3 fL Normal 82.6-102.9 [facility] Comment on above: Performed By: #### P RENAT #### [address] [address] Scow Hand: Dom Fowler MD [address] [place] [phone] Scow Hand: Shakeel Graham MD Monocytes (Bld) [#/Vol] 0.37 10*3/uL Normal 0.10-1.20 [facility] Comment on above: Performed By: #### P RENAT #### [address] [address] Scow Hand: Dom Fowler MD [address] [place] [address] Scow Hand: Shakeel Graham MD Monocytes/100 WBC (Bld) 9 % Normal 3-12 [facility] Comment on above: Performed By: #### P RENAT #### [address] [address] Scow Hand: Dom Fowler MD [address] [place] [phone] Scow Hand: Shakeel Graham MD Neutrophil (Seg) 42 % Normal 36-65 [facility] Comment on above: Performed By: #### P RENAT #### [address] [place] [address] Scow Hand: Dom Fowler MD [address] [place] [phone] Scow Hand: Shakeel Graham MD NRBC Automated 0.0 per 100 WBC Normal 0.0 [facility] Comment on above: Performed By: #### P RENAT #### [address] [address] Scow Hand: Dom Fowler MD [address] Felix [facility]83 Scow Hand: Shakeel Graham MD Platelet mean volume (Bld) [Entitic vol] 11.6 fL Normal 8.1-13.5 [facility] Comment on above: Performed By: #### P RENAT #### [address] [address] Scow Hand: Dom Fowler MD [address] [place] [phone] Scow Hand: Shakeel Graham MD Platelets (Bld) [#/Vol] 196 10*3/uL Normal 138-453 [facility] Comment on above: Performed By: #### P RENAT #### [address] [address] Scow Hand: Dom Fowler MD [address] [place] [phone] Scow Hand: Shakeel Graham MD RBC (Bld) [#/Vol] 4.38 10*6/uL Normal 3.95-5.11 [facility] Comment on above: Performed By: #### P RENAT #### [address] [address] Scow Hand: Dom Fowler MD [address] [place] [address] Scow Hand: Shakeel Graham MD WBC (Bld) [#/Vol] 4.2 10*3/uL Normal 3.5-11.3 [facility] Comment on above: Performed By: #### P RENAT #### [address] [address] Scow Hand: Dom Fowler MD [address] [place] [address] Scow Hand: Shakeel Graham MD Auto Diff Performed NOT REPORTED Normal [facility] Comment on above: Performed By: #### P RENAT #### [address] [address] Scow Hand: Dom Fowler MD [address] [place] [address] Scow Hand: Shakeel Graham MD Platelets (Bld) [#/Vol] NOT REPORTED Normal [facility] Comment on above: Performed By: #### P RENAT #### [address] [address] Scow Hand: Dom Fowler MD [address] [place] [address] Scow Hand: Shakeel Graham MD RBC morphology finding Nom (Bld) NOT REPORTED Normal [facility] Comment on above: Performed By: #### P RENAT #### [address] [address] Scow Hand: Dom Fowelr MD [address] [address] Scow Hand: Shakeel Graham MD WBC Morphology NOT REPORTED Normal [facility] Comment on above: Performed By: #### P RENAT #### [address] [address] Scow Hand: Dom Fowler MD [address] Felix [place] [id number] Scow Hand: Shakeel Graham MD Type + Scrnon 06-19 Type + Scrn Negative [facility] Comment on above: Performed By: #### P RTYS #### [facility] [address] [place], [place] [phone] Scow Hand: Shakeel Graham MD Toxicology Scree, Urineon Amphetamine(s),Ur Negative Normal NEG [facility] Comment on above: Performed By: #### C PDAU #### [facility] [address] [place], [place] [phone] Scow Hand: Shakeel Graham MD Barbiturate(s),Ur Negative Normal NEG [facility] Comment on above: Performed By: #### C PDAU #### [facility] [address] [place], [facility]83 Scow Hand: Shakeel Graham MD Benzodiazepine(s) Negative Normal [facility] Comment on above: Performed By: #### C PDAU #### [facility] [address] [place] [phone] Scow Hand: Shakeel Graham MD Buprenorphrine, Ur Negative Normal [facility] Comment on above: Performed By: #### C PDAU #### [facility] [address] [place], [facility]83 Scow Hand: Shakeel Graham MD Cannabinoid(s),Ur Negative Normal NEG [facility] Comment on above: Performed By: #### C PDAU #### [facility] [address] [place], [place] 4952383 Scow Hand: Shakeel Graham MD Cocaine Metabolite Negative Normal [facility] Comment on above: Performed By: #### C PDAU #### [facility] [address] [place], [place] [phone] Scow Hand: Shakeel Graham MD Methadone Ql (U) Negative Normal NEG [facility] Comment on above: Performed By: #### C PDAU #### [facility] [address] [place], [place] [phone] Scow Hand: Shakeel Graham MD Methamphetamine, Ur Negative Normal NEG [facility] Comment on above: Performed By: #### C PDAU #### [facility] [address] [place], [place] [phone] Scow Hand: Shakeel Graham MD Opiate(s), Ur Negative Normal NEG [facility] Comment on above: Performed By: #### C PDAU #### [facility] [address] [place] [address] Scow Hand: Shakeel Graham MD Oxycodone, Urine Negative Normal NEG [facility] Comment on above: Performed By: #### C PDAU #### [facility] [address] Felix, [place] [phone] Scow Hand: Shakeel Grahma MD Phencyclidine, Ur Negative Normal [facility] Comment on above: Performed By: #### C PDAU #### [facility] [address] [place], [place] 0333383 Scow Hand: Shakeel Graham MD Propoxyphene,Urine Negative Normal NEG [facility] Comment on above: Performed By: #### C PDAU #### [facility] [address] [place], [place] [phone] Scow Hand: Shakeel Graham MD Tricyclic antidepressants Screen Ql (U) Positive Abnormal NEG [facility] Comment on above: Result Comment: Drug screen results are to be used for medical purposes only. All positive results are unconfirmed. Testing for employment or legal uses should be sent to a reference laboratory for confirmation. Performed By: #### C PDAU #### [facility] [address] [place] [address] Scow Hand: Shakeel Graham MD Interpretive Info NOT REPORTED Normal [facility] Comment on above: Performed By: #### C PDAU #### [facility] [address] [place] [address] Scow Hand: Shakeel Graham MD MDMA, Urine NOT REPORTED Normal NEG [facility] Comment on above: Performed By: #### C PDAU #### [facility] [address] [place] [address] Scow Hand: Shakeel Graham MD Urine Drug Screen, Magda [...] Ag/Abon 05-10-2019 HIV Ag/Ab NONREACTIVE Normal NR [facility] Comment on above: Result Comment: No l aboratory evidence of HIV infection. If acute HIV infection is suspected, consider testing for HIV-1 RNA. Performed By: #### H IVCMB, PHEP #### [facility] [employer] [facility] [place] [address] Scow Hand: Dom Fowler MD #### CP #### [facility] [address] [place], [place] 1419483 Scow Hand: Shakeel Graham MD Hepatitis Acute [facility] 05-10 Hep A Ab,IgM NONREACTIVE Normal NR [facility] Comment on above: Performed By: #### H IVCMB, PHEP #### [address] [address] Scow Hand: Dom Fowler MD #### CP #### [address] [place] [address] Scow Hand: Shakeel Graham MD Hep B Core Ab,IgM NONREACTIVE Normal [facility] Comment on above: Performed By: #### H IVCMB, PHEP #### [address] [address] Scow Hand: Dom Fowler MD #### CP #### [facility] [address] [place] [address] Dr[place], [place] [phone] Scow Hand: Shakeel Graham MD Hep B Surf Ag NONREACTIVE Normal [facility] Comment on above: Performed By: #### H IVCMB, PHEP #### [address] [address] Scow Hand: Dom Fowler MD #### CP #### [facility] [address] [place] [address] Dr[place], [place] [phone] Scow Hand: Shakeel Graham MD Hep C Ab REACTIVE Abnormal [facility] Comment on above: Result Comment: The [...] Performed By: #### H IVCMB, PHEP #### [address] [place] [address] Scow Hand: Dom Fowler MD #### CP #### [facility] [address] [place] [address] [place], [place] [phone] Scow Hand: Shakeel Graham MD Comp Metabolic Profon 2018 (cont.) Normal [facility] Comment on above: Result Comment: Aver age GFR for 20-29 years old: 116 mL/min/1.73sq m Chronic Kidney Disease: <60 mL/min/1.73sq m Kidney failure: <15 mL/min/1.73sq m eGFR calculated using average adult body mass. Additional eGFR calculator available at: http://www.[employer]/multiple_crcl_2011.htm Performed By: #### H IVCMB, PHEP #### [address] [address] Scow Hand: Dom Fowler MD #### CP #### [facility] [address] [place] [address] [place], [place] [phone] Scow Hand: Shakeel Graham MD Albumin [Mass/Vol] 4.3 g/dL Normal 3.5-5.2 [facility] Comment on above: Performed By: #### H IVCMB, PHEP #### [address] [address] Scow Hand: Dom Fowler MD #### CP #### [address] [place], [place] [phone] Scow Hand: Shakeel Graham MD Albumin/Globulin [Mass ratio] 1.4 {ratio} Normal 1.0-2.5 [facility] Comment on above: Performed By: #### H IVCMB, PHEP #### [address] [address] Scow Hand: Dom Fowler MD #### CP #### [facility] [address] [place], [place] [phone] Scow Hand: Shakeel Graham MD Alkaline Phos 50 U/L Normal 35-104 [facility] Comment on above: Performed By: #### H IVCMB, PHEP #### [address] [address] Scow Hand: Dom Fowler MD #### CP #### [facility] [address] [place] [address] Dr. [place], [place] [phone] Scow Hand: Shakeel Graham MD ALT [Catalytic activity/Vol] 9 U/L Normal 5-33 [facility] Comment on above: Performed By: #### H IVCMB, PHEP #### [address] [address] Scow Hand: Dom Fowler MD #### CP #### [address] [place], [place] [id number] Scow Hand: Shakeel Graham MD Anion gap [Moles/Vol] 8 mmol/L Low 9-17 [facility] Comment on above: Performed By: #### H IVCMB, PHEP #### [address] [address] Scow Hand: Dom Fowler MD #### CP #### [address] [place], [place] 2367383 Scow Hand: Shakeel Graham MD AST [Catalytic activity/Vol] 15 U/L Normal <32 [facility] Comment on above: Performed By: #### H IVCMB, PHEP #### [address] [address] Scow Hand: Dom Fowler MD #### CP #### [address] [place], [place] 5172783 Scow Hand: Shakeel Graham MD Bilirubin Ql (U) 0.31 mg/dL Normal 0.3-1.2 [facility] Comment on above: Performed By: #### H IVCMB, PHEP #### [facility] [address] [place] [address] Scow Hand: Dom Fowler MD #### CP #### [facility] [address] [place], [place] 8337483 Scow Hand: Shakeel Graham MD BUN/CRE Ratio 20 Normal 9-20 [facility] Comment on above: Performed By: #### H IVCMB, PHEP #### [address] [address] Scow Hand: Dom Fowler MD #### CP #### [facility] [address] [place], [place] 9234083 Scow Hand: Shakeel Graham MD Calcium [Mass/Vol] 9.4 mg/dL Normal 8.6-10.4 [facility] Comment on above: Performed By: #### H IVCMB, PHEP #### [address] [address] Scow Hand: Dom Fowler MD #### CP #### [facility] [address] [place] [address] Dr[address] [place], [place] [phone] Scow Hand: Shakeel Graham MD Chloride [Moles/Vol] 102 mmol/L Normal 98-107 [facility] Comment on above: Performed By: #### H IVCMB, PHEP #### [address] [address] Scow Hand: Dom Fowler MD #### CP #### [facility] [address] [place], [place] 1523083 Scow Hand: Shakeel Graham MD CO2 [Moles/Vol] 28 mmol/L Normal 20-31 [facility] Comment on above: Performed By: #### H IVCMB, PHEP #### [address] [address] Scow Hand: Dom Fowler MD #### CP #### [facility] [address] [place], [place] 0509183 Scow Hand: Shakeel Graham MD Creatinine [Mass/Vol] 0.92 mg/dL High 0.50-0.90 [facility] Comment on above: Performed By: #### H IVCMB, PHEP #### [address] [address] Scow Hand: Dom Fowler MD #### CP #### [address] [place] [address] Scow Hand: Shakeel Graham MD GFR, Amer >60 Normal >60 [facility] Comment on above: Performed By: #### H IVCMB, PHEP #### [address] [address] Scow Hand: Dom Fowler MD #### CP #### [facility] [address] [place] [address] Dr[place], [place] [id number] Scow Hand: Shakeel Graham MD GFR,non Amer >60 Normal >60 [facility] Comment on above: Performed By: #### H IVCMB, PHEP #### [address] [address] Scow Hand: Dom Fowler MD #### CP #### [facility] [address] [place], [place] [id number] Scow Hand: Shakeel Graham MD Glucose [Mass/Vol] 91 mg/dL Normal 70-99 [facility] Comment on above: Performed By: #### H IVCMB, PHEP #### [address] [address] Scow Hand: Dom Fowler MD #### CP #### [facility] [address] [place] [address] [place]. [place], [place] [id number] Scow Hand: Shakeel Graham MD Potassium [Moles/Vol] 4.3 mmol/L Normal 3.7-5.3 [facility] Comment on above: Performed By: #### H IVCMB, PHEP #### [address] [address] Scow Hand: Dom Fowler MD #### CP #### [address] [place], [place] [id number] Scow Hand: Shakeel Graham MD Protein [Mass/Vol] 7.4 g/dL Normal 6.4-8.3 [facility] Comment on above: Performed By: #### H IVCMB, PHEP #### [address] [address] Scow Hand: Dom Fowler MD #### CP #### [address] [place], [place] [id number] Scow Hand: Shakeel Graham MD Sodium [Moles/Vol] 138 mmol/L Normal 135-144 [facility] Comment on above: Performed By: #### H IVCMB, PHEP #### [address] [address] Scow Hand: Dom Fowler MD #### CP #### [address] [place], [place] [id number] Scow Hand: Shakeel Graham MD Staging: Normal [facility] Comment on above: Result Comment: Stag e 1: Some kidney damage normal GFR Stage 2: Mild kidney damage GFR 60-89 Stage 3: Moderate kidney damage GFR 30-59 Stage 4: Severe kidney damage GFR 15-29 Stage 5: Severe kidney damage GFR <15 ESRD - chronic treatment by dialysis or transplant Performed By: #### H IVCMB, PHEP #### [address] [id number] Scow Hand: Dom Fowler MD #### CP #### [facility] [address] [place] [address] Scow Hand: Shakeel Graham MD Urea nitrogen [Mass/Vol] 18 mg/dL Normal 6-20 [facility] Comment on above: Performed By: #### H IVC, PHEP #### [facility] [address] [place], [place] [id number] Scow Hand: Dom Fowler MD #### CP #### [facility] [address] [place] [address] Scow Hand: Shakeel Graham MD [facility] Metabolic Pane [facility] 05-09-2019 Albumin [Mass/Vol] 4.3 g/dL 3.5 - 5.2 g/dL [place], [place] Albumin/Globulin [Mass ratio] 1.4 {ratio} [place], [place] ALP [Catalytic activity/Vol] 50 U/L 35 - 104 U/L [place] ALT [Catalytic activity/Vol] 9 U/L 5 - 33 U/L [place] Anion gap [Moles/Vol] 8 mmol/L Low 9 - 17 mmol/L [place] AST [Catalytic activity/Vol] 15 U/L <32 [place] Bilirubin Ql (U) 0.31 mg/dL 0.3 - 1.2 mg/dL [place], [place] Bun/Cre Ratio 20 [place], [place] Calcium [Mass/Vol] 9.4 mg/dL 8.6 - 10. 4 mg/dL [place] Chloride [Moles/Vol] 102 mmol/L 98 - 107 mmol/L [place] CO2 [Moles/Vol] 28 mmol/L 20 - 31 mmol/L [place] Creatinine [Mass/Vol] 0.92 mg/dL High 0.5 - 0.9 mg/dL [place] GFR >60 >60 mL/min [place], [place] GFR Non- >60 >60 mL/min [place] Glucose [Mass/Vol] 91 mg/dL 70 - 99 mg/dL [place] Interpretation and review of laboratory results Abnormal [place] Potassium [Moles/Vol] 4.3 mmol/L 3.7 - 5.3 mmol/L [place] Protein [Mass/Vol] 7.4 g/dL 6.4 - 8.3 g/dL [place], [place] Sodium [Moles/Vol] 138 mmol/L 135 - 144 mmol/L [place] Urea nitrogen [Mass/Vol] 18 mg/dL 6 - 20 mg/dL [place] Hepatitis Panel, Acuteon HAV IgM IA Qn (S) NONREACTIVE NONREACTIVE [place] Hep B Core Ab, IgM NONREACTIVE NONREACTIVE [place] Hepatitis B Surface Ag NONREACTIVE NONREACTIVE [place] Hepatitis C Ab REACTIVE Abnormal NONREACTIVE [place], [place] Comment on above: The hepatitis C [...] Interpretation and review of laboratory results Abnormal [place] Metabolic Panelon 05-09-2019 GFR/1.73 sq M predicted among non-blacks MDRD (S/P/Bld) [Vol rate/Area] [place] Comment on above: Average GFR for 20-2 9 years old: 116 mL/min/1.73sq m Chronic Kidney Disease: <60 mL/min/1.73sq m Kidney failure: <15 mL/min/1.73sq m eGFR calculated using average adult body mass. Additional eGFR calculator available at: http://www.[employer]/multiple_crcl_2012.htm Stage 1: Some kidney damage normal GFR Stage 2: Mild kidney damage GFR 60-89 Stage 3: Moderate kidney damage GFR 30-59 Stage 4: Severe kidney damage GFR 15-29 Stage 5: Severe kidney damage GFR <15 ESRD - chronic treatment by dialysis or transplant Drug Scr, Abuse, Uron 2017 Amphetamine(s),Ur Positive Abnormal NEG [facility] Comment on above: Result Comment: (Pos itive cutoff 1000 ng/mL) Performed By: #### D AU ####[address] [address] Barbiturate(s),Ur Negative Normal NEG [facility] Comment on above: Result Comment: (Pos itive cutoff 200 ng/mL) Performed By: #### D AU ####[address] [address] Base excess Negative Normal NEG [facility] Comment on above: Result Comment: (Pos itive cutoff 300 ng/mL) Performed By: #### D AU ####[address] [address] Benzodiazepine(s) Negative Normal NEG [facility] Comment on above: Result Comment: (Pos itive cutoff 200 ng/mL) Performed By: #### D AU ####[address] [address] Cannabinoid(s),Ur Negative Normal NEG [facility] Comment on above: Result Comment: (Pos itive cutoff 50 ng/mL) Performed By: #### D AU ####[address] [address] Interpretive Info Assay provides medical screening only. The absence of expected drug(s) and/or Normal [facility] Comment on above: Result Comment: meta bolite(s) may indicate diluted or adulterated urine, limitations of testing or timing of collection.Testing for legal purposes should be confirmed by another method. To request confirmation of test result, please call the lab within 7 days of sample submission.Performed at [address] [address] Performed By: #### D AU ####[address] [address] Opiate(s), Ur Negative Normal NEG [facility] Comment on above: Result Comment: (Pos itive cutoff 300 ng/mL) Performed By: #### D AU ####[address] [address] Oxycodone, Urine Negative Normal NEG [facility] Comment on above: Result Comment: (Pos itive cutoff 100 ng/mL) Performed By: #### D AU ####[address] [address] Phencyclidine, Ur Negative Normal NEG [facility] Comment on above: Result Comment: (Pos itive cutoff 25 ng/mL) Performed By: #### D AU ####[address] [address] Urine, methadone presence Negative Normal NEG [facility] Comment on above: Result Comment: (Pos itive cutoff 300 ng/mL) Performed By: #### D AU ####[address] [address] Buprenorphrine, Ur NOT REPORTED Normal NEG [facility] Comment on above: Performed By: #### D AU ####[address] [place] [address] MDMA, Urine NOT REPORTED Normal NEG [facility] Comment on above: Performed By: #### D AU ####[address] [place] [address] Methamphetamine, Ur NOT REPORTED Normal NEG [facility] Comment on above: Performed By: #### D AU ####[address] [address] Propoxyphene,Urine NOT REPORTED Normal NEG [facility] Comment on above: Performed By: #### D AU ####[facility] [place] [address] Urine, tricyclic antidepressants NOT REPORTED Normal NEG [facility] Comment on above: Performed By: #### D AU ####[address] [address] Lipid Profileon 11-05-2017 Cholesterol 137 mg/dL Normal <200 [facility] Comment on above: Result Comment: Chol esterol Guidelines: <200 Desirable 200-240 Borderline >240 Undesirable Performed By: #### L IPR ####[address] [address] Cholesterol to HDL Ratio 4.3 {ratio} Normal <5 [facility] Comment on above: Performed By: #### L IPR ####[facility] [place] [address] HDL Cholesterol 32 mg/dL Low >40 [facility] Comment on above: Result Comment: HDL Guidelines: <40 Undesirable 40-59 Borderline >59 Desirable Performed By: #### L IPR ####[address] [address] LDL Cholesterol 82 mg/dL Normal 0-130 [facility] Comment on above: Result Comment: LDL Guidelines: <100 Desirable 100-129 Near to/above Desirable 130-159 Borderline >159 UndesirableDirect (measured) LDL and calculated LDL are not interchangeable tests. Performed By: #### L IPR ####[address] [address] Triglyceride 113 mg/dL Normal <150 [facility] Comment on above: Result Comment: Trig lyceride Guidelines: <150 Desirable 150- 199 Borderline 200-499 High >499 Very high Based on AHA Guidelines for fasting triglyceride, June 2012.Performed at [facility] [address] [place] [address] Performed By: #### L IPR ####[facility] [place] [address] Cholesterol in VLDL mass conc NOT REPORTED Normal 10-16 [facility] Comment on above: Performed By: #### L IPR ####[facility] [place] [address] Encounters Encounter Date Encounter Type Care Provider Facility Start: 09-05-2023 End: 09-05-2023 ambulatory LUIS FELIPE HALL Not Available Start: 08-21-2023 End: 08-21-2023 ambulatory YOUSIF APARICIO Not Available Start: 08-01-2023 End: 08-01-2023 ambulatory LUIS FELIPE HALL Not Available Start: 12-21-2022 End: 12-21-2022 ambulatory IVAN CAMEJO . Facility:[facility] Start: 11-29-2022 End: 11-29-[address] RODO MENCHACA Facility:[facility] Start: 10-25-2022 [facility] Facility:[facility] Start: 10-11-2022 End: 10-11-[address] CHRISTINE SÁNCHEZ Facility:[facility] Start: 09-12-2022 End: 09-13-[address] YOUSIF APARICIO . Facility:[facility] Start: 08-19-2022 Encounter for preprocedural laboratory examination DR YOUSIF APARICIO . [facility] Start: 08-18-2022 End: 08-18-[address] YOUSIF APARICIO . Facility:[facility] Start: 08-16-2022 End: 08-17-[address] YOUSIF APARICIO . Facility:[facility] Start: 08-16-2022 End: 08-17-2022 Encounter for preprocedural laboratory examination DR YOUSIF APARICIO . Facility:[facility] Start: 08-14-2022 End: 08-15-2022 [facility] Facility:[facility] Start: 07-27-2022 End: 07-28-[address] YOUSIF APARICIO . Facility:[facility] Start: 07-09-2022 End: 07-09-[address] ELISEO HARDING Facility: Start: 12-12-2021 Telephone encounter King zee MD Work Phone: Hematology/Oncology Comment on above: Lab Orders Start: 10-28-2021 Chart abstracting King fleming MD Work Phone: Hematology/Oncology Start: 04-26-2020 End: 04-27-2020 Patient encounter procedure ANTHONY PABON [facility] Start: 04-26-2020 End: 04-26-2020 Subsequent hospital visit by physician Rochelle ALFRED Laboratory Start: 03-16-2020 End: 03-17-2020 Emergency department patient visit Lima Richards [facility] Facility:[facility] Start: 11-20-2019 End: 11-21-2019 Patient encounter procedure [facility] Start: 11-20-2019 End: 11-20-2019 Subsequent hospital visit by physician Rochelle ALFRED Laboratory Comment on above: History of miscarria ge, currently ; Amenorrhea; Positive urine test; Encounter for supervision of normal in first trimester, unspecified ; Spotting in early Start: 06-19-2019 End: 06-20-2019 Patient encounter procedure [facility] Start: 06-19-2019 End: 06-19-2019 Subsequent hospital visit by physician Rochelle ALFRED Laboratory Comment on above: Amenorrhea; Positive urine test; Encounter for supervision of normal in first trimester, unspecified ; Spotting in early Start: 05-09-2019 End: 05-10-2019 Patient encounter procedure KADI DIXON [facility] Start: 05-09-2019 End: 05-09-2019 Subsequent hospital visit by physician Rochelle ALFRED Laboratory Start: 11-05-2017 End: 11-07-2017 Evaluation and management of inpatient ANGELO SPICER [facility] Procedures Date Procedure Procedure Detail Performing Clinician Start: 04-26-2020 Acute hepatitis panel D AWN DESTINY Start: 04-26-2020 Antibody hiv-1&hiv-2 single result KADI DESTINY Start: 04-26-2020 Blood count complete automated KADI DESTINY Start: 04-26-2020 Comprehensive metabo lic panel KADI DESTINY Start: 04-26-2020 Gonadotropin chorion ic qualitative KADI DESTINY Start: 04-26-2020 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 KADI DESTINY Start: 04-26-2020 Acute hepatitis panel [...] SPICER Start: 11-05-2017 Lipid panel ANGELO BARRIOS GOLF TEACHER Start: 11-05-2017 DIET GENERAL ANGELO GOLF TEACHER Start: 11-05-2017 FULL CODE ANGELO GOLF TEACHER Start: 11-05-2017 IP CONSULT TO HISTOR Y [...] deficiency anemia type Expected: 12/12/2021, Expires: 02/11/2022 [facility] Work Phone: Comment on above: Expected: 12/12/2021 , Expires: 02/11/2022 Start: 05-18-2021 Influenza vaccination INFLUENZA (#1) [facility] Start: 06-26-2020 Cervical cancer screen Cervical canc er screen [place] Comment on above: Postponed from 01/11 (Not Indicated) Start: 06-26-2020 Screening for malign ant neoplasm of cervix Cervical cancer screen [place] Comment on above: Postponed from 01/11 (Not Indicated) Start: 05-18-2020 Influenza vaccination Flu vaccine (# 1) [place] Start: 11-21-2019 End: 11-21-2019 Ancillary Procedure 11/21/2019 Ancillary Procedure Obstetrics and Gynecology [facility]ICS [facility] GYNECOLOGY Start: 06-26-2019 End: 06-26-2019 Routine 06/26/2019 Routine Obstetrics and Gynecology Georgette Leung APRN - BRIAN [address] [place] [address] [phone] [facility]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 Start: 05-18-2019 Influenza vaccination Flu vaccine (# 1) [place] Start: 2015 Cervical cancer screen Cervical canc er screen [place] Start: 2015 PAP TESTING PAP TESTING [facility] Start: 2013 DTaP/Tdap/Td vaccine (1 - Tdap) DTaP/Tdap/Td vaccine (1 - Tdap) [place] Start: 2013 Urine microalbumin profile DTAP,TDAP,TD (1 - Tdap) [facility] Start: 01-12-2012 HEPATITIS C SCREENING HEPATITIS C SC REENING [facility] Start: 01-12-2012 HIV SCREENING HIV SCREENING [facility] Start: 2009 HPV vaccine (1 - Fem larissa 3-dose series) HPV vaccine (1 - Female 3-dose series) [place] Start: 2007 Varicella Vaccine (1 of 2 - 13+ 2-dose series) Varicella Vaccine (1 of 2 - 13+ 2-dose series) [place] Start: 2006 Adult depression screening assessment DEPRESSION SCREENING [facility] Start: 2005 DTaP/Tdap/Td vaccine (1 - Tdap) DTaP/Tdap/Td vaccine (1 - Tdap) [place] Start: 2005 HPV vaccine (1 - 2-d ose series) HPV vaccine (1 - 2-dose series) [place] Start: 2005 HPV vaccine (1 - Fem larissa 2-dose series) HPV vaccine (1 - Female 2-dose series) [place] Start: 01-12-2000 Pneumococcal 0-64 ye ars Vaccine (1 of 1 - PPSV23) Pneumococcal 0-64 years Vaccine (1 of 1 - PPSV23) [place] Start: 1999 COVID-19 VACCINE (1) COVID-19 VACCIN E (1) [facility] Start: 1995 Varicella vaccine (1 of 2 - 2-dose childhood series) Varicella vaccine (1 of 2 - 2-dose childhood series) [place] End: 11-20-2019 Bacteria identified Cx Nom (U) Urine Culture Microbiology Routine Amenorrhea Positive urine test Encounter for supervision of normal in first trimester, unspecified 1 Occurrences starting 11/20/2019 until 11/20/2019 [place] Comment on above: 1 Occurrences starti ng 11/20/2019 until 11/20/2019 Bacteria identified Cx Nom (U) [place] End: 06-19-2019 Bacteria identified Cx Nom (U) Urine Culture Microbiology Routine Amenorrhea Positive urine test Encounter for supervision of normal in first trimester, unspecified 1 Occurrences starting 06/19/2019 until 06/19/2019 [place] Comment on above: 1 Occurrences starti ng 06/19/2019 until 06/19/2019 End: 11-20-2019 C.trachomatis N.gonorrhoeae DNA, Urine C.trachomatis N.gonorrhoeae DNA, Urine Microbiology Routine Amenorrhea Positive urine test Encounter for supervision of normal in first trimester, unspecified 1 Occurrences starting 11/20/2019 until 11/20/2019 [place] Comment on above: 1 Occurrences starti ng 11/20/2019 until 11/20/2019 C.trachomatis N.gonorrhoeae DNA, Urine [place] End: 06-19-2019 C.trachomatis N.gonorrhoeae DNA, Urine C.trachomatis N.gonorrhoeae DNA, Urine Microbiology Routine Amenorrhea Positive urine test Encounter for supervision of normal in first trimester, unspecified 1 Occurrences starting 06/19/2019 until 06/19/2019 [place] Comment on above: 1 Occurrences starti ng 06/19/2019 until 06/19/2019 End: 04-26-2020 Hepatitis C RNA, quantitative, PCR Hepatitis C RNA, quantitative, PCR Lab Routine Once for 1 Occurrences starting 04/26/2020 until 04/26/2020 [place] Comment on above: Once for 1 Occurrenc es starting 04/26/2020 until 04/26/2020 Hepatitis C RNA, quantitative, PCR Hepatitis C RNA, quantitative, PCR Lab Routine 04/26/2020 7:30 AM EDT [place] End: 05-09-2019 HIV Screen HIV Screen Lab Routine Once for 1 Occurrences starting 05/09/2019 until 05/09/2019 [place] Comment on above: Once for 1 Occurrenc es starting 05/09/2019 until 05/09/2019 HIV Screen HIV Screen Lab R outine 05/09/2019 2:53 PM [facility]T [facility] Routine Amenorrhea Positive urine test Encounter for supervision of normal in first trimester, unspecified 11/20/2019 12:26 PM EST [facility] Payers Date Payer Category Payer Medicaid [employer] [employer] [id number] 2020-Present [phone] [address] [place], [place] [id number] Medicaid [id number] 2020 Unknown 2016 Unknown [facility] xxxxxxxxxxxx 2016-Present [phone] [place] [address] xxxxxxxxxxxx [id number] 1994 Unknown [id number] [id number] 1994 Unknown [id number] 2.16.840.1.705688.3.579.2.173 1994 Unknown [id number] 2.16.840.1.430183.3.579.2.173 1994 Unknown [id number] 2.16.840.1.401721.3.579.2.173 1994 Unknown [id number] 2.16.840.1.779453.3.579.2.173 1994 Unknown [id number] 2.16.840.1.310631.3.579.2.593 1994 Unknown [id number] 2.16840.1.305001.3.579.2.593 1994 Unknown [id number] 2.16.840.1.350170.3.579.2.593 1994 Unknown [id number] 2.16.840.1.519909.3.579.2.593 1994 Unknown [id number] 2.16.840.1.378164.3.579.2.593 1994 Unknown [id number] 2.16.840.1.859222.3.579.2.593 1994 Unknown [id number] 2.16.840.1.651827.3.579.2.593 1994 Unknown [id number] 2.16.840.1.431506.3.579.2.593 1994 Unknown [id number] 2.16.840.1.063800.3.579.2.593 1994 Unknown [id number] 2.16.840.1.634228.3.579.2.593 1994 Unknown [id number] 2.16.840.1.238880.3.579.2.125 9 1994 Unknown [id number] 2.16.840.1.360797.3.579.2.125 9 1994 Unknown [id number] [id number] 9 1959 Unknown [id number] Social History Date Type Detail Facility Start: 11-05-2017 End: 10-28-2021 Tobacco smoking status NHIS Never smoker [facility] Start: 11-05-2017 End: 06-19-2019 Alcohol intake No [place] Start: 1994 Sex Assigned At Not on file M [place] Start: 06-19-2019 End: 11-20-2019 Tobacco smoking status NHIS Current every day smoker [place] Start: 06-19-2019 End: 11-20-2019 Cigarettes smoked current (pack per day) - Reported [facility] Start: 11-20-2019 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 PREOPERATIVE DIAGNOSIS: Missed . POSTOPERATIVE DIAGNOSIS: Missed . ANESTHESIA: General. SURGEON: Yousif Aparicio D.O. PEDIATRIC DERMATOLOGIST: None. BLOOD LOSS: 75 mL. URINE OUTPUT: [...] products of conception were removed using a 10-British suction curette. Excellent hemostasis was noted. The patient tolerated the procedure well. Sponge, lap, and needle counts were correct x 2. All instruments were then removed from the patient's vagina. The patient was taken to the Recovery Room in stable condition. ?? [facility] Note 12-12-2021 Telephone Encounter - Angelia Almazan - 12/12/2021 11:16 AM EDT Note Date & Type Note Facility 12-12-2021 Miscellaneous Notes Pleases sign pending new cbc order. Thanks, Angelia Almazan MA documented in this encounter [facility] Progress note 11-08-2021 Note Date & Type Note Facility 11-08-2021 Note HNO ID: [id number] Author: King Suazo MD Service: ? Author [...] shortness of breath, and is seen at [place] emergency room. Labs revealed a hemoglobin of [...] Neg (more content not included)... [facility] Evaluation note Note Date & Type Note Facility Evaluation note Diagnosis Iron deficiency anemia, unspecified iron deficiency anemia type- Primary documented in this encounter [facility] Summary Purpose Family History No Family History Records FoundNo Family History Records FoundNo Family History Records FoundNo Family History Records FoundNo Family History Records FoundNo Family History Records Found Advance Directives No Advanced Directives Records FoundDocuments on File Type Date Recorded Patient Prover Expl anation Advance Directives and Living Will 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 Latest Code Status on File Code Status [...] section and content) DATE CREATED AUTHOR 03/08/2018 [facility] DATE CREATED AUTHOR AUTHOR'S ORGANIZ ATION 04/08/2020 [facility] DATE CREATED AUTHOR AUTHOR'S ORGANIZ ATION 04/28/2020 [facility] DATE CREATED AUTHOR AUTHOR'S ORGANIZ ATION 12/13/2021 [facility] DATE CREATED AUTHOR AUTHOR'S ORGANIZ ATION 12/25/2022 [facility] DATE CREATED AUTHOR AUTHOR'S ORGANIZ ATION 09/07/2023 [facility] EPIC Source Comments (unrecognize d section and content) In the event this informatio n is protected by the Federal Confidentiality of Alcohol and Drug Abuse Patient Records regulations: The Federal rules restrict any use of the information to criminally investigate or prosecute any alcohol or drug abuse patient.[facility] the event this information is protected by the Federal Confidentiality of Alcohol and Drug Abuse Patient Records regulations: The Federal rules restrict any use of the information to criminally investigate or prosecute any alcohol or drug abuse patient.[facility] Reason for Visit (unrecogniz ed section and content) Reason Comments Lab Orders Care Teams (unrecognized sec tion and content) 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 [facility]. provides no warranty or guarantee of the accuracy or completeness of information in this document.
[2023-09-14 17:14] VITALS: BP 117/63; PULSE 101
--- NOTE | 2023-09-14 17:35 | US_ITS ---
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 BREATHING MOVEMENTS: 2.0 GROSS BODY MOVEMENTS: 2.0 TONE: 2.0 QUALITATIVE AMNIOTIC FLUID VOLUME: 2.0 PRESENTATION: CEPHALIC HEART RATE: 130.4 bpm bpm. AMNIOTIC FLUID VOLUME: 12.8 cm GESTATIONAL AGE: 31 weeks 5 days CONCLUSION: Total biophysical profile score 8.0. Electronically authenticated by: CHRISTINE SÁNCHEZ Date: 09/14/2023 21:06
== END 2023-09-14 18:43 | disposition home or self-care (01) ==
LOC: US 07:20 → FBC 17:09
PROVIDERS: Visit Provider Physician Assistant
DX: O41.03X1 Oligohydramnios, third trimester, fetus 1 (principal); Z3A.31 31 weeks gestation of pregnancy
CPT/HCPCS: 76818

== ENCOUNTER 2023-09-18 07:37 | Outpatient (OUT) | payer OTHER, SELFPAY ==
--- OUTSIDE RECORDS SUMMARY | 2023-09-18 07:41 | XMS_ITS | CCD ---
Author Name Unknown Address [address] [place] [address] Organization [facility] Care Team Providers Care Kinder Teacher Name Role Phone ANGELO SPICER Unavailable Unavailable LIGIA SPICEREEP Unavailable Unavailable ROCHELLE WILLAMS Unavailable Unavailable Rochelle Willams Primary Care Provider [phone] Lima Cornell Attending Unavailab le Rochelle Willams [...] DR MENENDEZ Admitting Unavailable MEAGHAN, DR ELISEO Malnoe Consulting Unavailluis e MEAGHAN, DR ELISEO Malone [...] Unavailable NADERER, DR RODO Dickerson Admitting Unavailable [facility] Primary Care Unavaila ble GRECHNY ., ADELITA ORELLANA Consulting Unavailluis CAMARILLO, MYLES Alex Consulting Unavailable GAYE, GURU Consulting Unavailable ALFREDDOYOSEPH, ALIX Consulting Unavailable LINA, KAMILLA Consulting Unavailable SISTER, DANIELA Consulting Unavailable ROBBY ., DR MENENDEZ Consulting Unavailable [facility] Primary Care Unavaila ble ROBBY ., DR MENENDEZ Attending Unavailable ROBBY ., DR MENENDEZ Admitting Unavailable ELENITA, NGOC Consulting Unavailable GEMBUS, AUGUSTUS Consulting Unavailable [facility] Primary Care Unavaila ble ROBBY ., DR MENENDEZ Consulting Unavailable ROBBY ., DR MENENDEZ Attending Unavailable ROBBY ., DR MENENDEZ Admitting Unavailable ZIEBER, DR CHRISTINE Benites Consulting Unavailable ROBBY ., DR MENENDEZ Consulting Unavailable [facility] Primary Care Unavaila ble ROBBY ., DR [...] Propensity to adverse reactions to drug (disorder) [facility] Repository Medications Current Medications Medication Drug [...] Onset: 11-05-2017 Other aftercare (1 source) 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 Hemanth Kerr CBC AUTO DIFFon 11-29-2022 BASO # 0.0 103/ul Normal 0.0-0.1 [facility] Comment on above: Performed By: #### C BC #### [facility] [address] [address] [address] Hemanth Kerr Basophils/100 WBC (Bld) 0.7 % Normal 0.2-2.0 [facility] Comment on above: Performed By: #### C BC #### [facility] [address] [address] [address] Hemanth Kerr EO # 0.2 103/ul Normal 0.0-0.7 [facility] Comment on above: Performed By: #### C BC #### [facility] [address] [address] [address] Hemanth Kerr Eosinophils/100 WBC (Bld) 3.3 % Normal 0.9-7.0 [facility] Comment on above: Performed By: #### C BC #### [facility] [address] [place] [address] Dr. Hemanth Kerr Erythrocyte distribution width (RBC) [Ratio] 14.3 % Normal 11.0-15.0 [facility] Comment on above: Performed By: #### C BC #### [facility] [address] [place] [address] Dr. Hemanth Kerr Hematocrit (Bld) [Volume fraction] 37.2 % Normal 36.0-48.0 [facility] Comment on above: Performed By: #### C BC #### [facility] [address] [place] [address] Dr. Hemanth Kerr Hemoglobin (Bld) [Mass/Vol] 11.9 g/dL Critically low 12.0-16.0 [facility] Comment on above: Performed By: #### C BC #### [facility] [address] [place] [address] Dr. Hemanth Kerr IG # 0.01 10e3/ul Normal 0.00-0.03 [facility] Comment on above: Performed By: #### C BC #### [facility] [address] [address] [address] Hemanth Kerr IG % 0.2 % Normal 0.0-0.5 [facility] Comment on above: Performed By: #### C BC #### [facility] [address] [place] [address] Dr. Hemanth Kerr LYMPH # 1.7 103/ul Normal 1.2-3.8 [facility] Comment on above: Performed By: #### C BC #### [facility] [address] [place] [address] Dr. Hemanth Kerr Lymphocytes/100 WBC (Bld) 31.3 % Normal 20.5-60.0 [facility] Comment on above: Performed By: #### C BC #### [facility] [address] [place] [address] Dr. Hemanth Kerr MANUAL DIFF REQ NO Normal [facility] Comment on above: Performed By: #### C BC #### [facility] [address] [place] [address] Dr. Hemanth Kerr MCH (RBC) [Entitic mass] 27.8 pg Normal 26.7-34.0 [facility] Comment on above: Performed By: #### C BC #### [facility] [address] [place] [address] Dr. Hemanth Kerr MCHC (RBC) [Mass/Vol] 32.0 g/dL Normal 29.9-35.2 [facility] Comment on above: Performed By: #### C BC #### [facility] [address] [place] [address] Dr. Hemanth Kerr MCV (RBC) [Entitic vol] 86.9 fL Normal 81.0-99.0 [facility] Comment on above: Performed By: #### C BC #### [facility] [address] [place] [address] Dr. Hemanth Kerr MONO # 0.4 103/ul Normal 0.3-0.8 [facility] Comment on above: Performed By: #### C BC #### [facility] [address] [place] [address] Dr. Hemanth Kerr Monocytes/100 WBC (Bld) 8.0 % Normal 1.7-12.0 [facility] Comment on above: Performed By: #### C BC #### [facility] [address] [place] [address] Dr. Hemanth Kerr NEUT # 3.1 103/ul Normal 1.4-6.5 [facility] Comment on above: Performed By: #### C BC #### [facility] [address] [place] [address] Dr. Hemanth Kerr Neutrophils/100 WBC (Bld) 56.5 % Normal 43.0-75.0 [facility] Comment on above: Performed By: #### C BC #### [facility] [address] [place] [address] Dr. Hemanth Kerr Platelet mean volume (Bld) [Entitic vol] 10.3 fL Normal 9.5-13.5 [facility] Comment on above: Performed By: #### C BC #### [facility] [address] [place] [address] Dr. Hemanth Kerr PLT 258 103/ul Normal 150-450 [facility] Comment on above: Performed By: #### C BC #### [facility] [address] [place] [address] Dr. Hemanth Kerr RBC 4.28 106/ul Normal 4.20-5.40 [facility] Comment on above: Performed By: #### C BC #### [facility] [address] [place] [address] Dr. Hemanth Kerr WBC 5.4 103/ul Normal 4.0-11.0 [facility] Comment on above: Performed By: #### C BC #### [facility] [address] [place] [address] Dr. Hemanth Kerr PROF 14(COMP METB)on 023 Albumin [Mass/Vol] 3.1 g/dL Critically low 3.4-5.0 [facility] Comment on above: Performed By: #### C MP #### [facility] [address] [place] [address] Dr. Hemanth Kerr Albumin/Globulin [Mass ratio] 1.3 {ratio} Normal [facility] Comment on above: Performed By: #### C MP #### [facility] [address] [address] [address] Hemanth Kerr ALP [Catalytic activity/Vol] 56 U/L Normal 46-116 [facility] Comment on above: Performed By: #### C MP #### [facility] [address] [address] [address] Hemanth Kerr ALT [Catalytic activity/Vol] 34 U/L Normal 14-59 [facility] Comment on above: Performed By: #### C MP #### [facility] [address] [place] [address] Dr. Hemanth Kerr Anion gap [Moles/Vol] 7.0 mmol/L Normal [facility] Comment on above: Performed By: #### C MP #### [facility] [address] [place] [address] Dr. Hemanth Kerr AST [Catalytic activity/Vol] 29 U/L Normal 15-37 [facility] Comment on above: Performed By: #### C MP #### [facility] [address] [place] [address] Dr. Hemanth Kerr Bilirubin [Mass/Vol] 0.4 mg/dL Normal 0.2-1.0 [facility] Comment on above: Performed By: #### C MP #### [facility] [address] [place] [address] Dr. Hemanth Kerr Calcium [Mass/Vol] 8.3 mg/dL Critically low 8.5-10.1 [facility] Comment on above: Performed By: #### C MP #### [facility] [address] [place] [address] Dr. Hemanth Kerr Chloride [Moles/Vol] 110 mmol/L Critically high 98-107 [facility] Comment on above: Performed By: #### C MP #### [facility] [address] [place] [address] Dr. Hemanth Kerr CO2 [Moles/Vol] 27.6 mmol/L Normal 21.0-32.[address] [facility] Comment on above: Performed By: #### C MP #### [facility] [address] [place] [address] Dr. Hemanth Kerr Creatinine [Mass/Vol] 0.61 mg/dL Normal 0.55-1.02 [facility] Comment on above: Performed By: #### C MP #### [facility] [address] [address] [address] Hemanth Kerr EGFR-AF MALIAN >60 Normal >=60 [facility] Comment on above: Performed By: #### C MP #### [facility] [address] [address] [address] Hemanth Kerr EGFR-NON AF MALIAN >60 Normal >=60 [facility] Comment on above: Performed By: #### C MP #### [facility] [address] [address] [address] Hemanth Kerr Globulin (S) [Mass/Vol] 2.4 g/dL Normal [facility] Comment on above: Performed By: #### C MP #### [facility] [address] [place] [address] Dr. Hemanth Kerr Glucose [Mass/Vol] 110 mg/dL Critically high 74-106 [facility] Comment on above: Performed By: #### C MP #### [facility] [address] [address] [address] Hemanth Kerr Potassium [Moles/Vol] 2.6 mmol/L Critically low 3.5-5.1 [facility] Comment on above: Performed By: #### C MP #### [facility] [address] [place] [address] Dr. Hemanth Kerr Protein [Mass/Vol] 5.5 g/dL Critically low 6.4-8.2 [facility] Comment on above: Performed By: #### C MP #### [facility] [address] [address] [address] Hemanth Kerr Sodium [Moles/Vol] 142 mmol/L Normal 136-145 [facility] Comment on above: Performed By: #### C MP #### [facility] [address] [place] [address] Dr. Hemanth Kerr Urea nitrogen [Mass/Vol] 12.0 mg/dL Normal 7.0-18.0 [facility] Comment on above: Performed By: #### C MP #### [facility] [address] [address] [address] Hemanth Kerr Urea nitrogen/Creatinine [Mass ratio] 19.7 mg/mg Normal [facility] Comment on above: Performed By: #### C MP #### [facility] [address] [address] [address] Hemanth Kerr XR HIP LT 2 [...] ALIX GRANADOS Date: 2022-11-28 22:13 Normal [facility] ACETAMINOPHENon 11-28-2022 Acetaminophen [Mass/Vol] ug/mL Critically low 10.0-30.0 [facility] Comment on above: Performed By: #### C MP #### [facility] [address] [address] [address] Hemanth Kerr ACETONE SERUMon 11-28-2022 ACETONE Negative Normal NEGATIVE [facility] Comment on above: Performed By: #### P REG #### [facility] [address] [address] [address] Hemanth Kerr AMMONIAon 11-28-2022 Ammonia (P) [Moles/Vol] 24 umol/L Normal 11-32 [facility] Comment on above: Performed By: #### L ACT #### [facility] [address] [address] [address] Hemanth Kerr CBC AUTO DIFFon 11-28-2022 BASO # 0.0 103/ul Normal 0.0-0.1 [facility] Comment on above: Performed By: #### L ACT #### [facility] [address] [address] [address] Hemanth Kerr Basophils/100 WBC (Bld) 0.4 % Normal 0.2-2.0 [facility] Comment on above: Performed By: #### L ACT #### [facility] [address] [place] [address] Dr. Hemanth Kerr EO # 0.3 103/ul Normal 0.0-0.7 [facility] Comment on above: Performed By: #### L ACT #### [facility] [address] [place] [address] Dr. Hemanth Kerr Eosinophils/100 WBC (Bld) 3.1 % Normal 0.9-7.0 [facility] Comment on above: Performed By: #### L ACT #### [facility] [address] [place] [address] Dr. Hemanth Kerr Erythrocyte distribution width (RBC) [Ratio] 14.3 % Normal 11.0-15.0 [facility] Comment on above: Performed By: #### L ACT #### [facility] [address] [place] [address] Dr. Hemanth Kerr Hematocrit (Bld) [Volume fraction] 41.3 % Normal 36.0-48.0 [facility] Comment on above: Performed By: #### L ACT #### [facility] [address] [place] [address] Dr. Hemanth Kerr Hemoglobin (Bld) [Mass/Vol] 13.3 g/dL Normal 12.0-16.0 [facility] Comment on above: Performed By: #### L ACT #### [facility] [address] [place] [address] Dr. Hemanth Kerr IG # 0.02 10e3/ul Normal 0.00-0.03 [facility] Comment on above: Performed By: #### L ACT #### [facility] [address] [place] [address] Dr. Hemanth Kerr IG % 0.2 % Normal 0.0-0.5 [facility] Comment on above: Performed By: #### L ACT #### [facility] [address] [place] [address] Dr. Hemanth Kerr LYMPH # 2.4 103/ul Normal 1.2-3.8 [facility] Comment on above: Performed By: #### L ACT #### [facility] [address] [place] [address] Dr. Hemanth Kerr Lymphocytes/100 WBC (Bld) 26.3 % Normal 20.5-60.0 [facility] Comment on above: Performed By: #### L ACT #### [facility] [address] [place] [address] Dr. Hemanth Kerr MANUAL DIFF REQ NO Normal [facility] Comment on above: Performed By: #### L ACT #### [facility] [address] [place] [address] Dr. Hemanth Kerr MCH (RBC) [Entitic mass] 27.4 pg Normal 26.7-34.0 [facility] Comment on above: Performed By: #### L ACT #### [facility] [address] [place] [address] Dr. Hemanth Kerr MCHC (RBC) [Mass/Vol] 32.2 g/dL Normal 29.9-35.2 [facility] Comment on above: Performed By: #### L ACT #### [facility] [address] [place] [address] Dr. Hemanth Kerr MCV (RBC) [Entitic vol] 85.0 fL Normal 81.0-99.0 [facility] Comment on above: Performed By: #### L ACT #### [facility] [address] [place] [address] Dr. Hemanth Kerr MONO # 0.7 103/ul Normal 0.3-0.8 [facility] Comment on above: Performed By: #### L ACT #### [facility] [address] [place] [address] Dr. Hemanth Kerr Monocytes/100 WBC (Bld) 7.3 % Normal 1.7-12.0 [facility] Comment on above: Performed By: #### L ACT #### [facility] [address] [place] [address] Dr. Hemanth Kerr NEUT # 5.7 103/ul Normal 1.4-6.5 [facility] Comment on above: Performed By: #### L ACT #### [facility] [address] [address] [address] Hemanth Kerr Neutrophils/100 WBC (Bld) 62.7 % Normal 43.0-75.0 [facility] Comment on above: Performed By: #### L ACT #### [facility] [address] [address] [address] Hemanth Kerr Platelet mean volume (Bld) [Entitic vol] 10.6 fL Normal 9.5-13.5 [facility] Comment on above: Performed By: #### L ACT #### [facility] [address] [place] [address] Dr. Hemanth Kerr PLT 347 103/ul Normal 150-450 [facility] Comment on above: Performed By: #### L ACT #### [facility] [address] [place] [address] Dr. Hemanth Kerr RBC 4.86 106/ul Normal 4.20-5.40 [facility] Comment on above: Performed By: #### L ACT #### [facility] [address] [place] [address] Dr. Hemanth Kerr WBC 9.1 103/ul Normal 4.0-11.0 [facility] Comment on above: Performed By: #### L ACT #### [facility] [address] [place] [address] CSPINE WO CONon [...] KAMILLA MILLS Date: 2022-11-28 17:54 Normal [facility] CT HEAD WO CONon 11-28-2022 CT [...] KAMILLA MILLS Date: 2022-11-28 18:40 Normal [facility] CULTURE BLOODon 11-28-2022 Microscopic examination of blood, culture Culture Observations: NO GROWTH AT 5 DAYS. Normal [facility] Comment on above: Performed By: #### C BC #### [facility] [address] [address] [address] Hemanth Kerr Microscopic examination of blood, culture Culture Observations: NO GROWTH AT 5 DAYS. Normal [facility] Comment on above: Performed By: #### B [id number] #### [facility] [address] [place] [address] Dr. Hemanth Kerr Covid-19 PCR ([facility])on 11-15 SARS-CoV-2 (COVID-19) RNA ELMO+probe Ql (Unsp spec) Not detected Normal NOT DETECTED [facility] Comment on above: Result Comment: When [...] for this test is supported by the Upper Extremity Surgeon of Health and Human Service's declaration that [...] used). Performed By: #### L ACT #### [facility] [address] [place] [address] Dr. Hemanth Kerr DRUG SCREEN RAPID (URINE)on 11-28-2022 AMP Positive Abnormal NEGATIVE [facility] Comment on above: Performed By: #### P REG #### [facility] [address] [place] [address] Dr. Hemanth Kerr BAR Negative Normal NEGATIVE [facility] Comment on above: Performed By: #### P REG #### [facility] [address] [place] [address] Dr. Hemanth Kerr BUP Negative Normal NEGATIVE [facility] Comment on above: Performed By: #### P REG #### [facility] [address] [place] [address] Dr. Hemanth Kerr BZO Negative Normal NEGATIVE [facility] Comment on above: Performed By: #### P REG #### [facility] [address] [place] [address] Dr. Hemanth Kerr YOLANDA Negative Normal NEGATIVE [facility] Comment on above: Performed By: #### P REG #### [facility] [address] [place] [address] Dr. Hemanth Kerr CUT-OFFS SEE BELOW Normal [facility] Comment on above: Result Comment: AMP [...] ng/mL Performed By: #### P REG #### [facility] [address] [place] [address] Dr. Hemanth Kerr DRUG CUT HEADER DRUG CLASS TEST SYSTEM CUT-OFF CONCENTRATIONS ARE FOLLOWS: Normal [facility] Comment on above: Performed By: #### P REG #### [facility] [address] [place] [address] Dr. Hemanth Kerr mAMP Positive Abnormal NEGATIVE [facility] Comment on above: Performed By: #### P REG #### [facility] [address] [place] [address] Dr. Hemanth Kerr MTD Negative Normal NEGATIVE [facility] Comment on above: Performed By: #### P REG #### [facility] [address] [place] [address] Dr. Hemanth Kerr OPI Negative Normal NEGATIVE [facility] Comment on above: Performed By: #### P REG #### [facility] [address] [place] [address] Dr. Hemanth Kerr OXY Negative Normal NEGATIVE [facility] Comment on above: Performed By: #### P REG #### [facility] [address] [place] [address] Dr. Hemanth Kerr PCP Negative Normal NEGATIVE [facility] Comment on above: Performed By: #### P REG #### [facility] [address] [place] [address] Dr. Hemanth Kerr PPX Negative Normal NEGATIVE [facility] Comment on above: Performed By: #### P REG #### [facility] [address] [address] [address] Hemanth Kerr TCA Negative Normal NEGATIVE [facility] Comment on above: Performed By: #### P REG #### [facility] [address] [place] [address] Dr. Hemanth Kerr THC Negative Normal NEGATIVE [facility] Comment on above: Performed By: #### P REG #### [facility] [address] [place] [address] Dr. Hemanth Kerr ER URINE PROFILEon 3 Bilirubin Ql (U) Negative Normal NEGATIVE [facility] Comment on above: Performed By: #### P REG #### [facility] [address] [place] [address] Dr. Hemanth Kerr Clarity (U) CLEAR Normal CLEAR [facility] Comment on above: Performed By: #### P REG #### [facility] [address] [place] [address] Dr. Hemanth Kerr Color (U) LT. YELLOW Normal YELLOW [facility] Comment on above: Performed By: #### P REG #### [facility] [address] [place] [address] Dr. Hemanth Kerr ERUAbi A micrscopic examination will be performed if indicated. Normal [facility] Comment on above: Performed By: #### P REG #### [facility] [address] [place] [address] Dr. Hemanth Kerr Glucose Ql (U) Negative Normal NEGATIVE [facility] Comment on above: Performed By: #### P REG #### [facility] [address] [place] [address] Dr. Hemanth Kerr Hemoglobin Ql (U) Negative Normal NEGATIVE [facility] Comment on above: Performed By: #### P REG #### [facility] [address] [place] [address] Dr. Hemanth Kerr Ketones Ql (U) Negative Normal NEGATIVE [facility] Comment on above: Performed By: #### P REG #### [facility] [address] [place] [address] Dr. Hemanth Kerr LEUKOCYTES Negative Normal NEGATIVE [facility] Comment on above: Performed By: #### P REG #### [facility] [address] [place] [address] Dr. Hemanth Kerr Nitrite Ql (U) Positive Abnormal NEGATIVE [facility] Comment on above: Performed By: #### P REG #### [facility] [address] [place] [address] Dr. Hemanth Kerr pH (U) 7.5 [pH] Normal 5-9 [facility] Comment on above: Performed By: #### P REG #### [facility] [address] [place] [address] Dr. Hemanth Kerr SPEC GRAVITY 1.020 Normal 1.005-<=1.025 [facility] Comment on above: Performed By: #### P REG #### [facility] [address] [place] [address] Dr. Hemanth Kerr UA PROTEIN TRACE Normal NEGATIVE/ TRACE [facility] Comment on above: Performed By: #### P REG #### [facility] [address] [place] [address] Dr. Hemanth Kerr UR MICRO IND INDICATED Normal [facility] Comment on above: Performed By: #### P REG #### [facility] [address] [place] [address] Dr. Hemanth Kerr Urobilinogen Qn (U) 1.0 {Jose'U}/dL Normal 0.2 - 1. 0 [facility] Comment on above: Performed By: #### P REG #### [facility] [address] [place] [address] Dr. Hemanth Kerr ETHANOL (BLD ALC)on 11-29-19 23 ALC NOTE NOTE: 80 mg/dl is th e legal limit for a blood alcohol level Normal [facility] Comment on above: Performed By: #### C MP #### [facility] [address] [place] [address] Dr. Hemanth Kerr Ethanol [Mass/Vol] mg/dL Normal [facility] Comment on above: Performed By: #### C MP #### [facility] [address] [place] [address] Dr. Hemanth Kerr LACTATE/LACTIC ACIDon 2022 Lactate [Moles/Vol] 0.7 mmol/L Normal 0.4-2.0 [facility] Comment on above: Performed By: #### L ACT #### [facility] [address] [address] [address] Hemanth Kerr Lactate [Moles/Vol] 9.0 mmol/L Critically high 0.4-2.0 [facility] Comment on above: Performed By: #### L ACT #### [facility] [address] [address] [address] Hemanth Kerr PH VENOUS BLOODon 11-28-2022 PCO2 VENOUS 36.6 mmHg Critically low 40.0-52.0 [facility] Comment on above: Performed By: #### P HVEN #### [facility] [address] [place] [address] Dr. Hemanth Kerr pH VENOUS 7.354 Normal 7.330-7.430 [facility] Comment on above: Performed By: #### P HVEN #### [facility] [address] [place] [address] Dr. Hemanth Kerr POINT OF CARE GLUCOSEon 11-15 Glucose [Mass/Vol] 127 mg/dL Critically high 74-106 [facility] Comment on above: Performed By: #### C BC #### [facility] [address] [place] [address] Dr. Hemanth Kerr PREG HCG QUALon 11-28-2022 , QUAL Negative Normal NEGATIVE [facility] Comment on above: Performed By: #### P REG #### [facility] [address] [place] [address] Dr. Hemanth Kerr PROF 14(COMP METB)on 023 Albumin [Mass/Vol] 3.7 g/dL Normal 3.4-5.0 [facility] Comment on above: Performed By: #### L ACT #### [facility] [address] [place] [address] Dr. Hemanth Kerr Albumin/Globulin [Mass ratio] 1.3 {ratio} Normal [facility] Comment on above: Performed By: #### L ACT #### [facility] [address] [address] [address] Hemanth Kerr ALP [Catalytic activity/Vol] 72 U/L Normal 46-116 [facility] Comment on above: Performed By: #### L ACT #### [facility] [address] [address] [address] Hemanth Kerr ALT [Catalytic activity/Vol] 42 U/L Normal 14-59 [facility] Comment on above: Performed By: #### L ACT #### [facility] [address] [address] [address] Hemanth Kerr Anion gap [Moles/Vol] 16.3 mmol/L Normal [facility] Comment on above: Performed By: #### L ACT #### [facility] [address] [place] [address] Dr. Hemanth Kerr AST [Catalytic activity/Vol] 45 U/L Critically high 15-37 [facility] Comment on above: Performed By: #### L ACT #### [facility] [address] [place] [address] Dr. Hemanth Kerr Bilirubin [Mass/Vol] 0.4 mg/dL Normal 0.2-1.0 [facility] Comment on above: Performed By: #### L ACT #### [facility] [address] [place] [address] Dr. Hemanth Kerr Calcium [Mass/Vol] 8.8 mg/dL Normal 8.5-10.1 [facility] Comment on above: Performed By: #### L ACT #### [facility] [address] [place] [address] Dr. Hemanth Kerr Chloride [Moles/Vol] 107 mmol/L Normal 98-107 [facility] Comment on above: Performed By: #### L ACT #### [facility] [address] [address] [address] Hemanth Kerr CO2 [Moles/Vol] 21.8 mmol/L Normal 21.0-32.0 [facility] Comment on above: Performed By: #### L ACT #### [facility] [address] [address] [address] Hemanth Kerr Creatinine [Mass/Vol] 1.32 mg/dL Critically high 0.55-1.02 [facility] Comment on above: Performed By: #### L ACT #### [facility] [address] [address] [address] Hemanth Kerr EGFR-AF MALIAN 58 mL/min/1.73m2 Critically low >=60 [facility] Comment on above: Performed By: #### L ACT #### [facility] [address] [address] [address] Hemanth Kerr EGFR-NON AF MALIAN 48 mL/min/1.73m2 Critically low >=60 [facility] Comment on above: Performed By: #### L ACT #### [facility] [address] [place] [address] Dr. Hemanth Kerr Globulin (S) [Mass/Vol] 2.9 g/dL Normal [facility] Comment on above: Performed By: #### L ACT #### [facility] [address] [address] [address] Hemanth Kerr Glucose [Mass/Vol] 143 mg/dL Critically high 74-106 [facility] Comment on above: Performed By: #### L ACT #### [facility] [address] [address] [address] Hemanth Kerr Potassium [Moles/Vol] 3.1 mmol/L Critically low 3.5-5.1 [facility] Comment on above: Performed By: #### L ACT #### [facility] [address] [address] [address] Hemanth Kerr Protein [Mass/Vol] 6.6 g/dL Normal 6.4-8.2 [facility] Comment on above: Performed By: #### L ACT #### [facility] [address] [address] [address] Hemanth Kerr Sodium [Moles/Vol] 142 mmol/L Normal 136-145 [facility] Comment on above: Performed By: #### L ACT #### [facility] [address] [address] [address] Hemanth Kerr Urea nitrogen [Mass/Vol] 17.0 mg/dL Normal 7.0-18.0 [facility] Comment on above: Performed By: #### L ACT #### [facility] [address] [place] [address] Dr. Hemanth Kerr Urea nitrogen/Creatinine [Mass ratio] 12.9 mg/mg Normal [facility] Comment on above: Performed By: #### L ACT #### [facility] [address] [place] [address] Dr. Hemanth Kerr PROTIMEon 11-28-2022 INR Coag (PPP) [Relative time] 0.97 {INR} Normal [facility] Comment on above: Performed By: #### P T, PTT #### [facility] [address] [place] [address] Dr. Hemanth Kerr INR GUIDELINES SEE BELOW Normal [facility] Comment on above: Result Comment: CHAN RED INR: 2.0 - 3.0 CONDITIONS NOT LISTED BELOW 2.5 - 3.5 FOR PROSTHETIC HEART VALVE REPLACEMENT 2.5 - 3.5 RECURRENT THROMBOSIS Performed By: #### P T, PTT #### [facility] [address] [place] [address] Dr. Hemanth Kerr PT Coag (PPP) [Time] 10.3 s Normal 9.0-11.6 [facility] Comment on above: Performed By: #### P T, PTT #### [facility] [address] [place] [address] Dr. Hemanth Kerr PTTon 11-28-2022 aPTT Coag (Bld) [Time] 25.4 s Normal 22.3-36.2 [facility] Comment on above: Performed By: #### P T, PTT #### [facility] [address] [place] [address] Dr. Hemanth Kerr SALICYLATEon 11-28-2022 SALICYLATE <2.8 Normal <=19.9 [facility] Comment on above: Performed By: #### C MP #### [facility] [address] [place] [address] Dr. Hemanth Kerr TROPONIN, HIGH SENSITIVITYon 11-28-2022 HSTROP 4.2 pg/mL Normal 4.0-51.3 [facility] Comment on above: Result Comment: CUT- OFF POINTS HAVE BEEN ESTABLISHED BASED ON THE FOURTH UNIVERSAL DEFINITIONS OF MYOCARDIAL INFARCTION. THE UPPER REFERENCE LIMIT (URL) OF TROPONIN, DEFINED THE 99TH PERCENTILE OF cTnI DISTRIBUTION IN A REFERENCE POPULATION, HAS BEEN CONFIRMED THE DECISION THRESHOLD FOR [place] DIAGNOSIS. Performed By: #### C MP #### [facility] [address] [place] [address] Dr. Hemanth Kerr TSHon 11-28-2022 TSH 3.476 uIU/mL Normal 0.358-3.[address] [facility] Comment on above: Performed By: #### L ACT #### [facility] [address] [place] [address] Dr. Hemanth Kerr URINE MICROSCOPIC ONLYon BACTERIA LARGE Abnormal NONE SEEN [facility] Comment on above: Performed By: #### P REG #### [facility] [address] [place] [address] Dr. Hemanth Kerr Bacteria identified Cx Nom (U) INDICATED Normal [facility] Comment on above: Performed By: #### P REG #### [facility] [address] [place] [address] Dr. Hemanth Kerr CAST SEEN Abnormal NONE SEEN [facility] Comment on above: Performed By: #### P REG #### [facility] [address] [place] [address] Dr. Hemanth Kerr COARSE GRANULAR CAST RARE Normal [facility] Comment on above: Performed By: #### P REG #### [facility] [address] [place] [address] Dr. Hemanth Kerr Crystals LM Nom (Urine sed) NONE SEEN Normal NONE SEEN [facility] Comment on above: Performed By: #### P REG #### [facility] [address] [place] [address] Dr. Hemanth Kerr Epithelial cells LM Ql (Urine sed) RARE Normal NONE SEEN /RARE [facility] Comment on above: Performed By: #### P REG #### [facility] [address] [place], [place] [id number] Dr. Hemanth Kerr MUCOUS NONE SEEN Normal NONE SEEN [facility] Comment on above: Performed By: #### P REG #### [facility] [address] [place] [address] Dr. Hemanth Kerr RBC 0-2 Normal 0-2 [facility] Comment on above: Performed By: #### P REG #### [facility] [address] [place] [address] Dr. Hemanth Kerr WBC 2-5 Abnormal NONE SEEN [facility] Comment on above: Performed By: #### P REG #### [facility] [address] [place] [address] Dr. Hemanth Kerr XR CHEST 1 Von [...] KAMILLA MILLS Date: 2022-11-28 17:39 Normal [facility] CULTURE URINEon 10-13-2022 CULTURE URINE Isolate [...] Trimethoprim/Sulfamet hoxazole >=320 R F Normal [facility] Comment on above: Performed By: #### U RCX #### [facility] [address] [address] [address] Hemanth Kerr CBC AUTO DIFFon 10-11-2022 BASO # 0.0 103/ul Normal 0.0-0.1 [facility] Comment on above: Performed By: #### C BC #### [facility] [address] [address] [address] Hemanth Kerr Basophils/100 WBC (Bld) 0.3 % Normal 0.2-2.0 [facility] Comment on above: Performed By: #### C BC #### [facility] [address] [address] [address] Hemanth Kerr EO # 0.0 103/ul Normal 0.0-0.7 [facility] Comment on above: Performed By: #### C BC #### [facility] [address] [place] [address] Dr. Hemanth Kerr Eosinophils/100 WBC (Bld) 0.4 % Critically low 0.9-7.0 [facility] Comment on above: Performed By: #### C BC #### [facility] [address] [place] [address] Dr. Hemanth Kerr Erythrocyte distribution width (RBC) [Ratio] 12.2 % Normal 11.0-15.0 [facility] Comment on above: Performed By: #### C BC #### [facility] [address] [place] [address] Dr. Hemanth Kerr Hematocrit (Bld) [Volume fraction] 38.6 % Normal 36.0-48.0 [facility] Comment on above: Performed By: #### C BC #### [facility] [address] [place] [address] Dr. Hemanth Kerr Hemoglobin (Bld) [Mass/Vol] 12.0 g/dL Normal 12.0-16.0 [facility] Comment on above: Performed By: #### C BC #### [facility] [address] [place] [address] Dr. Hemanth Krer IG # 0.07 10e3/ul Critically high 0.00-0.03 [facility] Comment on above: Performed By: #### C BC #### [facility] [address] [place] [address] Dr. Hemanth Kerr IG % 0.7 % Critically high 0.0-0.5 [facility] Comment on above: Performed By: #### C BC #### [facility] [address] [place] [address] Dr. Hemanth Kerr LYMPH # 1.2 103/ul Normal 1.2-3.8 [facility] Comment on above: Performed By: #### C BC #### [facility] [address] [place] [address] Dr. Hemanth Kerr Lymphocytes/100 WBC (Bld) 12.1 % Critically low 20.5-60.0 [facility] Comment on above: Performed By: #### C BC #### [facility] [address] [place] [address] Dr. Hemanth Kerr MANUAL DIFF REQ NO Normal [facility] Comment on above: Performed By: #### C BC #### [facility] [address] [place] [address] Dr. Hemanth Kerr MCH (RBC) [Entitic mass] 28.0 pg Normal 26.7-34.0 [facility] Comment on above: Performed By: #### C BC #### [facility] [address] [place] [address] Dr. Hemanth Kerr MCHC (RBC) [Mass/Vol] 31.1 g/dL Normal 29.9-35.2 [facility] Comment on above: Performed By: #### C BC #### [facility] [address] [place] [address] Dr. Hemanth Kerr MCV (RBC) [Entitic vol] 90.2 fL Normal 81.0-99.0 [facility] Comment on above: Performed By: #### C BC #### [facility] [address] [place] [address] Dr. Hemanth Kerr MONO # 0.7 103/ul Normal 0.3-0.8 [facility] Comment on above: Performed By: #### C BC #### [facility] [address] [address] [address] Hemanth Kerr Monocytes/100 WBC (Bld) 6.9 % Normal 1.7-12.0 [facility] Comment on above: Performed By: #### C BC #### [facility] [address] [address] [address] Hemanth Kerr NEUT # 8.1 103/ul Critically high 1.4-6.5 [facility] Comment on above: Performed By: #### C BC #### [facility] [address] [address] [address] Hemanth Kerr Neutrophils/100 WBC (Bld) 79.6 % Critically high 43.0-75.0 [facility] Comment on above: Performed By: #### C BC #### [facility] [address] [place] [address] Dr. Hemanth Kerr Platelet mean volume (Bld) [Entitic vol] 10.8 fL Normal 9.5-13.5 [facility] Comment on above: Performed By: #### C BC #### [facility] [address] [address] [address] Hemanth Kerr PLT 452 103/ul Critically high 150-450 [facility] Comment on above: Performed By: #### C BC #### [facility] [address] [address] [address] Hemanth Kerr RBC 4.28 106/ul Normal 4.20-5.40 [facility] Comment on above: Performed By: #### C BC #### [facility] [address] [address] [address] Hemanth Kerr WBC 10.1 103/ul Normal 4.0-11.0 [facility] Comment on above: Performed By: #### C BC #### [facility] [address] [place] [address] ABD/PELVIS WO CONon [...] by: CHRISTINE SÁNCHEZ Date: 2022-10-11 14:45 Normal [facility] ER URINE PROFILEon 3 Bilirubin Ql (U) Negative Normal NEGATIVE [facility] Comment on above: Performed By: #### L ACT #### [facility] [address] [place] [address] Dr. Hemanth Kerr Clarity (U) CLEAR Normal CLEAR [facility] Comment on above: Performed By: #### L ACT #### [facility] [address] [address] [address] Hemanth Kerr Color (U) LT. YELLOW Normal YELLOW [facility] Comment on above: Performed By: #### L ACT #### [facility] [address] [place] [address] Dr. Hemanth Kerr ERUAHD A micrscopic examination will be performed if indicated. Normal [facility] Comment on above: Performed By: #### L ACT #### [facility] [address] [address] [address] Hemanth Kerr Glucose Ql (U) Negative Normal NEGATIVE [facility] Comment on above: Performed By: #### L ACT #### [facility] [address] [address] [address] Hemanth Kerr Hemoglobin Ql (U) LARGE Abnormal NEGATIVE [facility] Comment on above: Performed By: #### L ACT #### [facility] [address] [address] [address] Hemanth Kerr Ketones Ql (U) Negative Normal NEGATIVE [facility] Comment on above: Performed By: #### L ACT #### [facility] [address] [place] [address] Dr. Hemanth Kerr LEUKOCYTES SMALL Abnormal NEGATIVE [facility] Comment on above: Performed By: #### L ACT #### [facility] [address] [place] [address] Dr. Hemanth Kerr Nitrite Ql (U) Negative Normal NEGATIVE [facility] Comment on above: Performed By: #### L ACT #### [facility] [address] [address] [address] Hemanth Kerr pH (U) 6.5 [pH] Normal 5-9 [facility] Comment on above: Performed By: #### L ACT #### [facility] [address] [place] [address] Dr. Hemanth Kerr Protein (U) [Mass/Vol] 30 mg/dL Abnormal NEGATIVE/ TRACE [facility] Comment on above: Performed By: #### L ACT #### [facility] [address] [place] [address] Dr. Hemanth Kerr SPEC GRAVITY <=1.005 Abnormal 1.005-<=1.025 [facility] Comment on above: Performed By: #### L ACT #### [facility] [address] [place] [address] Dr. Hemanth Kerr UR MICRO IND INDICATED Normal [facility] Comment on above: Performed By: #### L ACT #### [facility] [address] [address] [address] Hemanth Kerr Urobilinogen Qn (U) 1.0 {Jose'U}/dL Normal 0.2 - 1. 0 [facility] Comment on above: Performed By: #### L ACT #### [facility] [address] [address] [address] Hemanth Kerr PREG HCG QUALon 10-11-2022 , QUAL Negative Normal NEGATIVE [facility] Comment on above: Performed By: #### P REG #### [facility] [address] [address] [address] Hemanth Kerr PROF CHEM 8 (BAS METB)on Anion gap [Moles/Vol] 9.4 mmol/L Normal [facility] Comment on above: Performed By: #### L ACT #### [facility] [address] [place] [address] Dr. Hemanth Kerr Calcium [Mass/Vol] 8.8 mg/dL Normal 8.5-10.1 [facility] Comment on above: Performed By: #### L ACT #### [facility] [address] [address] [address] Hemanth Kerr Chloride [Moles/Vol] 97 mmol/L Critically low 98-107 [facility] Comment on above: Performed By: #### L ACT #### [facility] [address] [place] [address] Dr. Hemanth Kerr CO2 [Moles/Vol] 32.4 mmol/L Critically high 21.0-32.0 [facility] Comment on above: Performed By: #### L ACT #### [facility] [address] [place] [address] Dr. Hemanth Kerr Creatinine [Mass/Vol] 0.65 mg/dL Normal 0.55-1.02 [facility] Comment on above: Performed By: #### L ACT #### [facility] [address] [place] [address] Dr. Hemanth Kerr EGFR-AF MALIAN >60 Normal >=[address] [facility] Comment on above: Performed By: #### L ACT #### [facility] [address] [address] [address] Hemanth Kerr EGFR-NON AF MALIAN >60 Normal >=60 [facility] Comment on above: Performed By: #### L ACT #### [facility] [address] [place] [address] Dr. Hemanth Kerr Glucose [Mass/Vol] 117 mg/dL Critically high 74-106 [facility] Comment on above: Performed By: #### L ACT #### [facility] [address] [address] [address] Hemanth Kerr Potassium [Moles/Vol] 2.8 mmol/L Critically low 3.5-5.1 [facility] Comment on above: Performed By: #### L ACT #### [facility] [address] [place] [address] Dr. Hemanth Kerr Sodium [Moles/Vol] 135 mmol/L Critically low 136-145 [facility] Comment on above: Performed By: #### L ACT #### [facility] [address] [place] [address] Dr. Hemanth Kerr Urea nitrogen [Mass/Vol] 8.0 mg/dL Normal 7.0-18.0 [facility] Comment on above: Performed By: #### L ACT #### [facility] [address] [place] [address] Dr. Hemanth Kerr Urea nitrogen/Creatinine [Mass ratio] 12.3 mg/mg Normal [facility] Comment on above: Performed By: #### L ACT #### [facility] [address] [place] [address] Dr. Hemanth Kerr URINE MICROSCOPIC ONLYon BACTERIA SMALL Abnormal NONE SEEN [facility] Comment on above: Performed By: #### L ACT #### [facility] [address] [place], [place] [id number] Dr. Hemanth Kerr Bacteria identified Cx Nom (U) INDICATED Normal [facility] Comment on above: Performed By: #### L ACT #### [facility] [address] [place] [address] Dr. Hemanth Kerr CAST NONE SEEN Normal NONE SEEN [facility] Comment on above: Performed By: #### L ACT #### [facility] [address] [place] [address] Dr. Hemanth Kerr Crystals LM Nom (Urine sed) NONE SEEN Normal NONE SEEN [facility] Comment on above: Performed By: #### L ACT #### [facility] [address] [place] [address] Dr. Hemanth Kerr Epithelial cells LM Ql (Urine sed) FEW Abnormal NONE SEEN /RARE [facility] Comment on above: Performed By: #### L ACT #### [facility] [address] [place] [address] Dr. Hemanth Kerr MUCOUS NONE SEEN Normal NONE SEEN [facility] Comment on above: Performed By: #### L ACT #### [facility] [address] [place] [address] Dr. Hemanth Kerr RBC 0-2 Normal 0-2 [facility] Comment on above: Performed By: #### L ACT #### [facility] [address] [place] [address] Dr. Hemanth Kerr WBC 10-20 Abnormal NONE SEEN [facility] Comment on above: Performed By: #### L ACT #### [facility] [address] [place] [address] Dr. Hemanth Kerr PREG QUANT HCGon 09-12-2022 HCG QUANT 66 mIU/mL Normal [facility] Comment on above: Performed By: #### C MP #### [facility] [address] [place] [address] Dr. Hemanth Kerr HCG RANGE SEE BELOW Normal [facility] Comment on above: Result Comment: 5-50 0.2-1 WEEK 50-500 1-2 WEEKS 100-5,000 2-3 WEEKS 500-10,000 3-4 WEEKS 1,000-50,000 4-5 WEEKS 10,000-100,000 5-6 WEEKS 15,000-200,000 6-8 WEEKS 10,000-100,000 2-3 MONTHS Performed By: #### C MP #### [facility] [address] [place] [address] Dr. Hemanth Kerr CBC AUTO DIFFon 08-16-2022 BASO # 0.0 103/ul Normal 0.0-0.1 [facility] Comment on above: Performed By: #### L ACT #### [facility] [address] [place] [address] Dr. Hemanth Kerr Basophils/100 WBC (Bld) 0.6 % Normal 0.2-2.0 [facility] Comment on above: Performed By: #### L ACT #### [facility] [address] [address] [address] Hemanth Kerr EO # 0.1 103/ul Normal 0.0-0.7 [facility] Comment on above: Performed By: #### L ACT #### [facility] [address] [place] [address] Dr. Hemanth Kerr Eosinophils/100 WBC (Bld) 1.3 % Normal 0.9-7.0 [facility] Comment on above: Performed By: #### L ACT #### [facility] [address] [place] [address] Dr. Hemanth Kerr Erythrocyte distribution width (RBC) [Ratio] 12.0 % Normal 11.0-15.0 [facility] Comment on above: Performed By: #### L ACT #### [facility] [address] [place] [address] Dr. Hemanth Kerr Hematocrit (Bld) [Volume fraction] 35.6 % Critically low 36.0-48.0 [facility] Comment on above: Performed By: #### L ACT #### [facility] [address] [place] [address] Dr. Hemanth Kerr Hemoglobin (Bld) [Mass/Vol] 12.4 g/dL Normal 12.0-16.0 [facility] Comment on above: Performed By: #### L ACT #### [facility] [address] [place] [address] Dr. Hemanth Kerr IG # 0.02 10e3/ul Normal 0.00-0.03 [facility] Comment on above: Performed By: #### L ACT #### [facility] [address] [place] [address] Dr. Hemanth Kerr IG % 0.3 % Normal 0.0-0.5 [facility] Comment on above: Performed By: #### L ACT #### [facility] [address] [place] [address] Dr. Hemanth Kerr LYMPH # 1.9 103/ul Normal 1.2-3.8 [facility] Comment on above: Performed By: #### L ACT #### [facility] [address] [place] [address] Dr. Hemanth Kerr Lymphocytes/100 WBC (Bld) 27.5 % Normal 20.5-60.0 [facility] Comment on above: Performed By: #### L ACT #### [facility] [address] [place] [address] Dr. Hemanth Kerr MANUAL DIFF REQ NO Normal [facility] Comment on above: Performed By: #### L ACT #### [facility] [address] [place] [address] Dr. Hemanth Kerr MCH (RBC) [Entitic mass] 29.6 pg Normal 26.7-34.0 [facility] Comment on above: Performed By: #### L ACT #### [facility] [address] [place] [address] Dr. Hemanth Kerr MCHC (RBC) [Mass/Vol] 34.8 g/dL Normal 29.9-35.2 [facility] Comment on above: Performed By: #### L ACT #### [facility] [address] [place] [address] Dr. Hemanth Kerr MCV (RBC) [Entitic vol] 85.0 fL Normal 81.0-99.0 [facility] Comment on above: Performed By: #### L ACT #### [facility] [address] [place] [address] Dr. Hemanth Kerr MONO # 0.4 103/ul Normal 0.3-0.8 [facility] Comment on above: Performed By: #### L ACT #### [facility] [address] [place] [address] Dr. Hemanth Kerr Monocytes/100 WBC (Bld) 6.3 % Normal 1.7-12.0 [facility] Comment on above: Performed By: #### L ACT #### [facility] [address] [address] [address] Hemanth Kerr NEUT # 4.5 103/ul Normal 1.4-6.5 [facility] Comment on above: Performed By: #### L ACT #### [facility] [address] [address] [address] Hemanth Kerr Neutrophils/100 WBC (Bld) 64.0 % Normal 43.0-75.0 [facility] Comment on above: Performed By: #### L ACT #### [facility] [address] [place] [address] Dr. Hemanth Kerr Platelet mean volume (Bld) [Entitic vol] 10.6 fL Normal 9.5-13.5 [facility] Comment on above: Performed By: #### L ACT #### [facility] [address] [place] [address] Dr. Hemanth Kerr PLT 247 103/ul Normal 150-450 [facility] Comment on above: Performed By: #### L ACT #### [facility] [address] [place] [address] Dr. Hemanth Kerr RBC 4.19 106/ul Critically low 4.20-5.40 [facility] Comment on above: Performed By: #### L ACT #### [facility] [address] [place] [address] Dr. Hemanth Kerr WBC 7.0 103/ul Normal 4.0-11.0 [facility] Comment on above: Performed By: #### L ACT #### [facility] [address] [place] [address] Dr. Hemanth Kerr Covid-19 PCR ([facility])on 07-20 SARS-CoV-2 (COVID-19) RNA ELMO+probe Ql (Unsp spec) Not detected Normal NOT DETECTED [facility] Comment on above: Result Comment: This test is not yet approved or cleared by the [place] FDA. When there are no FDA-approved or cleared tests available, and other criteria are met, FDA can make tests available under an emergency access mechanism called an Emergency Use Authorization (EUA). The EUA for this test is supported by the Upper Extremity Surgeon of Health and Human Service's (HHS's) declaration [...] SARS-CoV-2. Performed By: #### C MP #### [facility] [address] [place] [address] Dr. Hemanth Kerr PREG QUANT HCGon 08-16-2022 HCG QUANT [id number] mIU/mL Normal [facility] Comment on above: Performed By: #### P REG #### [facility] [address] [place] [address] Dr. Hemanth Kerr HCG RANGE SEE BELOW Normal [facility] Comment on above: Result Comment: 5-50 0.2-1 WEEK 50-500 1-2 WEEKS 100-5,000 2-3 WEEKS 500-10,000 3-4 WEEKS 1,000-50,000 4-5 WEEKS 10,000-100,000 5-6 WEEKS 15,000-200,000 6-8 WEEKS 10,000-100,000 2-3 MONTHS Performed By: #### P REG #### [facility] [address] [place] [address] Dr. Hemanth Kerr PREG QUANT HCGon 08-14-2022 HCG QUANT 61102 mIU/mL Normal [facility] Comment on above: Performed By: #### P REG #### [facility] [address] [place] [address] Dr. Hemanth Kerr HCG RANGE SEE BELOW Normal [facility] Comment on above: Result Comment: 5-50 0.2-1 WEEK 50-500 1-2 WEEKS 100-5,000 2-3 WEEKS 500-10,000 3-4 WEEKS 1,000-50,000 4-5 WEEKS 10,000-100,000 5-6 WEEKS 15,000-200,000 6-8 WEEKS 10,000-100,000 2-3 MONTHS Performed By: #### P REG #### [facility] [address] [address] [address] Hemanth Kerr US PREG TVon 08-14-2022 [...] by: CHRISTINE SÁNCHEZ Date: 2022-08-14 16:22 Normal [facility] US PREG TVon 07-27-2022 US PREG [...] by: CHRISTINE SÁNCHEZ Date: 2022-07-27 17:04 Normal [facility] XR CHEST 1 Von 07-09-2022 XR [...] by: FELIX WEBB Date: 2022-07-09 12:06 Normal [facility]E [facility] ([id number]) 1995 F Date Time Provider Department 12/12/21 KING SUAZO During your visit today, we recorded the following information about you: Angelia Almazan 12/12/2021 11:16 AM Signed Pleases sign pending new cbc order. Thanks, Angelia Almazan MA Allergies As of Date: 12/12/2021 (No Known Allergies) Date Reviewed: 12/12/2021 Reviewed by: Jasmin Silverio APRN.[facility] - Fully Assessed Reason for Visit: Lab Orders [168] Primary Visit Diagnosis:Iron deficiency anemia, unspecified iron deficiency anemia type [D50.9] Order(s):CBC + DIFF [SQCBCDIF] Order #: [id number] FUTURE Prescriptions as of 12/12/2021 - gabapentin (NEURONTIN) 400 mg capsule Take by mouth. - Polysaccharide Iron Complex 180 mg iron cap Take by mouth. - aspirin 81 mg cap Take 81 mg by mouth once daily. - ONDANSETRON HCL ORAL Take 4 mg by mouth as needed. Problem List As Of Date: 12/12/2021 (None) Encounter Status:Closed by JASMIN SILVERIO on 12/12/21 Normal [facility] NOE ERVIN ([id number]) 1995 F Date Time Provider Department 11/10/21 [...] B12 is slightly low. Options would be [id number] B12 tablets 2 mg daily or start a monthly injection. Thanks, MELANY De La O RN 11/10/2021 3:40 PM Signed Informed pt of Dr Suazo's message. Pt verbalized understanding and states [facility] told her only 2 doses of [...] by JENNYFER DE LA O on 11/10/21 [facility] CNOVSPon 11-08-2021 CNOVSP Visit (SP) Office ([place]) NOE ERVIN ([id number]) 1995 F Date Time Provider Department 11/08/21 [...] shortness of breath, and is seen at [place] emergency room. Labs revealed a hemoglobin of [...] changes, r (more content not included)... Normal [facility] Comp Metabolic Panelon 11-08 Albumin [Mass/Vol] 3.6 g/dL Low 3.9-4.9 [facility] Comment on above: Performed By: #### S ERFOL, IRON, B12, FERR #### [address] [place], [place] [address] ALP [Catalytic activity/Vol] 79 U/L Normal 34-123 [facility] Comment on above: Performed By: #### S ERFOL, IRON, B12, FERR #### [facility] [address] [place], [place] [address] ALT [Catalytic activity/Vol] 8 U/L Normal 7-38 [facility] Comment on above: Performed By: #### S ERFOL, IRON, B12, FERR #### [facility] [address] [place], [place] [address] Anion gap [Moles/Vol] 9 mmol/L Normal 9-18 [facility] Comment on above: Performed By: #### S ERFOL, IRON, B12, FERR #### [facility] [address] [place], [place] [address] AST [Catalytic activity/Vol] 13 U/L Normal 13-35 [facility] Comment on above: Performed By: #### S ERFOL, IRON, B12, FERR #### [address] [place] [address] Bilirubin [Mass/Vol] 0.2 mg/dL Normal 0.2-1.3 [facility] Comment on above: Performed By: #### S ERFOL, IRON, B12, FERR #### [place] [address] Calcium [Mass/Vol] 9.3 mg/dL Normal 8.5-10.2 [facility] Comment on above: Performed By: #### S ERFOL, IRON, B12, FERR #### [address] [place] [address] Chloride [Moles/Vol] 102 mmol/L Normal 97-105 [facility] Comment on above: Performed By: #### S ERFOL, IRON, B12, FERR #### [address] [place] [address] CO2 [Moles/Vol] 23 mmol/L Normal 22-30 [facility] Comment on above: Performed By: #### S ERFOL, IRON, B12, FERR #### [address] [address] Creatinine [Mass/Vol] 0.55 mg/dL Low 0.58-0.96 [facility] Comment on above: Performed By: #### S ERFOL, IRON, B12, FERR #### [place] [address] eGFR- Amer. >60 Normal [facility] Comment on above: Performed By: #### S ERFOL, IRON, B12, FERR #### [address] [place] [address] eGFR-All Other Races >60 Normal [facility] Comment on above: Result Comment: eGFR (Estimated [...] #### S ERFOL, IRON, B12, FERR #### [facility] [employer] [address] [place], [place] [address] Glucose [Mass/Vol] 96 mg/dL Normal 74-99 [facility] Comment on above: Result Comment: The [place] Diabetes Association (ADA) provides guidance for cutoff [...] Standards of Medical Care in Diabetes 2016, [place] [employer] Association. Diabetes Care. 2016.39(Suppl 1). Performed By: #### S ERFOL, IRON, B12, FERR #### [facility] [employer] [address] [place], [place] [address] Potassium [Moles/Vol] 3.3 mmol/L Low 3.7-5.1 [facility] Comment on above: Performed By: #### S ERFOL, IRON, B12, FERR #### [address] [place], [place] [address] Protein [Mass/Vol] 6.3 g/dL Normal 6.3-8.0 [facility] Comment on above: Performed By: #### S ERFOL, IRON, B12, FERR #### [address] [address] Sodium [Moles/Vol] 134 mmol/L Low 136-144 [facility] Comment on above: Performed By: #### S ERFOL, IRON, B12, FERR #### [address] [place] [address] Urea nitrogen [Mass/Vol] 4 mg/dL Low 7-21 [facility] Comment on above: Performed By: #### S ERFOL, IRON, B12, FERR #### [place] [id number] Ferritinon 11-08-2021 Ferritin [Mass/Vol] 203.0 ng/mL Normal 14.7-205.1 [facility] Comment on above: Performed By: #### S ERFOL, IRON, B12, FERR #### [address] [address] Folate, Serumon 11-08-2021 Folate [Mass/Vol] 8.5 ng/mL Normal >4.7 [facility] Comment on above: Performed By: #### S ERFOL, IRON, B12, FERR #### [address] [address] Iron and TIBCon 11-08-2021 Iron [Mass/Vol] 93 ug/dL Normal 41-186 [facility] Comment on above: Performed By: #### S ERFOL, IRON, B12, FERR #### [address] [address] TIBC 407 ug/dL High 232-386 [facility] Comment on above: Performed By: #### S ERFOL, IRON, B12, FERR #### [facility] [address] [place] [id number] Transferrin Saturatn 23 % Normal 15-57 [facility] Comment on above: Performed By: #### S ERFOL, IRON, B12, FERR #### [facility] [employer] [address] [place], [place] [address] Remote CBCDIF (for [facility] use o nly)on 11-08-2021 Abs Baso <0.03 Normal <0.11 [facility] Abs Galax 0.57 k/uL Normal <0.87 [facility] Abs Neut 4.67 k/uL Normal 1.45-7.50 [facility] Absolute nRBC <0.01 Normal <0.01 [facility] Basophils/100 WBC (Bld) 0.3 % Normal [facility] DTYPE Auto Diff Normal [facility] Eosinophils (Bld) [#/Vol] 0.05 10*3/uL Normal <0.46 [facility] Eosinophils/100 WBC (Bld) 0.8 % Normal [facility] Erythrocyte distribution width (RBC) [Ratio] 29.9 % High 11.5-15.0 [facility] Hematocrit (Bld) [Volume fraction] 32.6 % Low 36.0-46.0 [facility] Hemoglobin (Bld) [Mass/Vol] 10.1 g/dL Low 11.5-15.5 [facility] Lymphocytes (Bld) [#/Vol] 1.25 10*3/uL Normal 1.00-4.00 [facility] Lymphocytes/100 WBC (Bld) 19.1 % Normal [facility] MCH 25.1 pG Low 26.0-34.0 [facility] MCHC (RBC) [Mass/Vol] 31.0 g/dL Normal 30.5-36.0 [facility] MCV (RBC) [Entitic vol] 81.1 fL Normal 80.0-100.0 [facility] Monocytes/100 WBC (Bld) 8.7 % Normal [facility] Neutrophils/100 WBC (Bld) 71.1 % Normal [facility] NRBCs 0.0 /100 WBC Normal 0 [facility] Platelet mean volume (Bld) [Entitic vol] 10.3 fL Normal 9.0-12.7 [facility] Platelets (Bld) [#/Vol] 223 10*3/uL Normal 150-400 [facility] Comment on above: Result Comment: Resu lt checked and verified Sample checked for a clot. RBC (Bld) [#/Vol] 4.02 10*6/uL Normal 3.90-5.20 [facility] WBC (Bld) [#/Vol] 6.56 10*3/uL Normal 3.70-11.00 [facility] Reticulocyteon 11-08-2021 Abs Retic 0.140 M/uL High 0.0180-0.1000 [facility] Comment on above: Performed By: #### S ERFOL, IRON, B12, FERR #### [address] [place] [address] Retic% 3.5 % High 0.4-2.0 [facility] Comment on above: Performed By: #### S ERFOL, IRON, B12, FERR #### [address] [place] [id number] Vitamin B12on 11-08-2021 Cobalamin (Vitamin B12) [Mass/Vol] 218 pg/mL Low 232-1245 [facility] Comment on above: Performed By: #### S ERFOL, IRON, B12, FERR #### [address] [place] [address] HCV RNA,Quant,PCRon 04-27-20 20 HCV RNA,Quant,PCR Specimen [...] genotypes 1-6. Report Status FINAL 04/27/2020 Normal [facility] Comment on above: Performed By: #### H IVCMB, PHEP #### [address] [address] Ticket Sales Supervisor: Dom Fowler MD #### CP #### [facility] [address] [place] [address] [phone] Ticket Sales Supervisor: Shakeel Graham MD [facility] 04-26-2020 Erythrocyte distribution width (RBC) [Ratio] 14.7 % High 11.8-14.4 [facility] Comment on above: Performed By: #### H IVCMB, PHEP #### [address] [address] Ticket Sales Supervisor: Dom Fowler MD #### CP #### [facility] [address] [place] [address] Dr. [phone] Ticket Sales Supervisor: Shakeel Graham MD Hematocrit (Bld) [Volume fraction] 36.0 % Low 36.3-47.1 [facility] Comment on above: Performed By: #### H IVCMB, PHEP #### [address] [address] Ticket Sales Supervisor: Dom Fowler MD #### CP #### [facility] [address] [place] [address] [phone] Ticket Sales Supervisor: Shakeel Graham MD Hemoglobin (Bld) [Mass/Vol] 10.9 g/dL Low 11.9-15.1 [facility] Comment on above: Performed By: #### H IVCMB, PHEP #### [address] [address] Ticket Sales Supervisor: Dom Fowler MD #### CP #### [facility] [address] [place] [address] [place], [place] [id number] Ticket Sales Supervisor: Shakeel Graham MD MCH (RBC) [Entitic mass] 26.2 pg Normal 25.2-33.5 [facility] Comment on above: Performed By: #### H IVCMB, PHEP #### [address] [address] Ticket Sales Supervisor: Dom Fowler MD #### CP #### [facility] [address] [place] [address] Dr. [address] [phone] Ticket Sales Supervisor: Shakeel Graham MD MCHC (RBC) [Mass/Vol] 30.3 g/dL Normal 28.4-34.8 [facility] Comment on above: Performed By: #### H IVCMB, PHEP #### [address] [address] Ticket Sales Supervisor: Dom Fowler MD #### CP #### [address] [place] [phone] Ticket Sales Supervisor: Shakeel Graham MD MCV (RBC) [Entitic vol] 86.5 fL Normal 82.6-102.9 [facility] Comment on above: Performed By: #### H IVCMB, PHEP #### [address] [address] Ticket Sales Supervisor: Dom Fowler MD #### CP #### [address] [place] [phone] Ticket Sales Supervisor: Shakeel Graham MD NRBC Automated 0.0 per 100 WBC Normal 0.0 [facility] Comment on above: Performed By: #### H IVCMB, PHEP #### [address] [address] Ticket Sales Supervisor: Dom Fowler MD #### CP #### [address] [place], [place] [phone] Ticket Sales Supervisor: Shakeel Graham MD Platelet mean volume (Bld) [Entitic vol] 10.8 fL Normal 8.1-13.5 [facility] Comment on above: Performed By: #### H IVCMB, PHEP #### [address] [address] Ticket Sales Supervisor: Dom Fowler MD #### CP #### [address] [place], [place] [phone] Ticket Sales Supervisor: Shakeel Graham MD Platelets (Bld) [#/Vol] 328 10*3/uL Normal 138-453 [facility] Comment on above: Performed By: #### H IVCMB, PHEP #### [address] [address] Ticket Sales Supervisor: Dom Fowler MD #### CP #### [address] [place], [place] [phone] Ticket Sales Supervisor: Shakeel Graham MD RBC (Bld) [#/Vol] 4.16 10*6/uL Normal 3.95-5.11 [facility] Comment on above: Performed By: #### H IVCMB, PHEP #### [address] [address] Ticket Sales Supervisor: Dom Fowler MD #### CP #### [address] [place], [place] [phone] Ticket Sales Supervisor: Shakeel Graham MD WBC (Bld) [#/Vol] 5.7 10*3/uL Normal 3.5-11.3 [facility] Comment on above: Performed By: #### H IVCMB, PHEP #### [address] [address] Ticket Sales Supervisor: Dom Fowler MD #### CP #### [address] [place] [address] Ticket Sales Supervisor: Shakeel Graham MD Erythrocyte distribution width (RBC) [Ratio] 14.7 % High 11.8 - 14.4 % [place], [place] Hematocrit (Bld) [Volume fraction] 36.0 % Low 36.3 - 47.1 % [place] Hemoglobin (Bld) [Mass/Vol] 10.9 g/dL Low 11.9 - 15.1 g/dL [place] Interpretation and review of laboratory results Abnormal [place] MCH (RBC) [Entitic mass] 26.2 pg 25.2 - 33.5 pg [place] MCHC (RBC) [Mass/Vol] 30.3 g/dL 28.4 - 34.8 g/dL [place] MCV (RBC) [Entitic vol] 86.5 fL 82.6 - 102.9 fL [place] Platelet mean volume (Bld) [Entitic vol] 10.8 fL 8.1 - 13.5 fL [place], [place] Platelets (Bld) [#/Vol] 328 10*3/uL [place] RBC (Bld) [#/Vol] 4.16 10*6/uL 3.95 - 5.1 1 m/uL [place] WBC (Bld) [#/Vol] 0.0 10*3/uL 0.0 per 100 WBC [place] WBC (Bld) [#/Vol] 5.7 10*3/uL [place], [place] Comp Metabolic Profon 2019 Bilirubin Ql (U) <0.10 Low 0.3-1.2 [facility] Comment on above: Performed By: #### H IVCMB, PHEP #### [facility] [employer] [address] [place] [address] Ticket Sales Supervisor: Dom Fowler MD #### CP #### [facility] [address] [place] [address] Ticket Sales Supervisor: Shakeel Grhaam MD (cont.) Normal [facility] Comment on above: Result Comment: Aver age GFR for 20-29 years old: 116 mL/min/1.73sq m Chronic Kidney Disease: <60 mL/min/1.73sq m Kidney failure: <15 mL/min/1.73sq m eGFR calculated using average adult body mass. Additional eGFR calculator available at: http://www.[employer]/multiple_crcl_2011.htm Performed By: #### H IVCMB, PHEP #### [facility] [address] [place] [address] Ticket Sales Supervisor: Dom Fowler MD #### CP #### [facility] [address] [place] [address] Ticket Sales Supervisor: Shakeel Graham MD Albumin [Mass/Vol] 3.4 g/dL Low 3.5-5.2 [facility] Comment on above: Performed By: #### H IVCMB, PHEP #### [address] [place] [address] Ticket Sales Supervisor: Dom Fowler MD #### CP #### [facility] [address] [place] [address] Ticket Sales Supervisor: Shakeel Graham MD Albumin/Globulin [Mass ratio] 1.5 {ratio} Normal 1.0-2.5 [facility] Comment on above: Performed By: #### H IVCMB, PHEP #### [address] [place] [address] Ticket Sales Supervisor: Dom Fowler MD #### CP #### [facility] [address] [place] [address] Ticket Sales Supervisor: Shakeel Graham MD Alkaline Phos 40 U/L Normal 35-104 [facility] Comment on above: Performed By: #### H IVCMB, PHEP #### [address] [address] Ticket Sales Supervisor: Dom Fowler MD #### CP #### [facility] [address] [place], [place] [phone] Ticket Sales Supervisor: Shakeel Graham MD ALT [Catalytic activity/Vol] 12 U/L Normal 5-33 [facility] Comment on above: Performed By: #### H IVCMB, PHEP #### [facility] [address] [place] [address] Ticket Sales Supervisor: Dom Fowler MD #### CP #### [facility] [address] [place], [place] [phone] Ticket Sales Supervisor: Shakeel Graham MD Anion gap [Moles/Vol] 9 mmol/L Normal 9-17 [facility] Comment on above: Performed By: #### H IVCMB, PHEP #### [facility] [address] [place] [address] Ticket Sales Supervisor: Dom Fowler MD #### CP #### [facility] [address] [place], [place] [phone] Ticket Sales Supervisor: Shakeel Graham MD AST [Catalytic activity/Vol] 12 U/L Normal <32 [facility] Comment on above: Performed By: #### H IVCMB, PHEP #### [facility] [address] [place] [address] Ticket Sales Supervisor: Dom Fowler MD #### CP #### [facility] [address] [place], [place] [phone] Ticket Sales Supervisor: Shakeel Graham MD BUN/CRE Ratio 26 High 9-20 [facility] Comment on above: Performed By: #### H IVCMB, PHEP #### [facility] [address] [place] [address] Ticket Sales Supervisor: Dom Fowler MD #### CP #### [facility] [address] [place], [place] [phone] Ticket Sales Supervisor: Shakeel Graham MD Calcium [Mass/Vol] 9.3 mg/dL Normal 8.6-10.4 [facility] Comment on above: Performed By: #### H IVCMB, PHEP #### [address] [address] Ticket Sales Supervisor: Dom Fowler MD #### CP #### [facility] [address] [place] [address] Dr. [address] [phone] Ticket Sales Supervisor: Shakeel Graham MD Chloride [Moles/Vol] 109 mmol/L High 98-107 [facility] Comment on above: Performed By: #### H IVCMB, PHEP #### [address] [address] Ticket Sales Supervisor: Dom Fowler MD #### CP #### [facility] [address] [place] [address] [place] [phone] Ticket Sales Supervisor: Shakeel Graham MD CO2 [Moles/Vol] 26 mmol/L Normal 20-31 [facility] Comment on above: Performed By: #### H IVCMB, PHEP #### [address] [address] Ticket Sales Supervisor: Dom Fowler MD #### CP #### [address] [place] [phone] Ticket Sales Supervisor: Shakeel Graham MD Creatinine [Mass/Vol] 0.57 mg/dL Normal 0.50-0.90 [facility] Comment on above: Performed By: #### H IVCMB, PHEP #### [address] [address] Ticket Sales Supervisor: Dom Fowler MD #### CP #### [facility] [address] [place] [address] [place], [place] [phone] Ticket Sales Supervisor: Shakeel Graham MD GFR, Amer >60 Normal >60 [facility] Comment on above: Performed By: #### H IVCMB, PHEP #### [facility] [address] [place] [address] Ticket Sales Supervisor: Dom Fowler MD #### CP #### [facility] [address] [place], [place] [phone] Ticket Sales Supervisor: Shakeel Graham MD GFR,non Amer >60 Normal >60 [facility] Comment on above: Performed By: #### H IVCMB, PHEP #### [address] [address] Ticket Sales Supervisor: Dom Fowler MD #### CP #### [facility] [address] [place] [address] [place] [place], [place] [phone] Ticket Sales Supervisor: Shakeel Graham MD Glucose [Mass/Vol] 92 mg/dL Normal 70-99 [facility] Comment on above: Performed By: #### H IVCMB, PHEP #### [address] [address] Ticket Sales Supervisor: Dom Fowler MD #### CP #### [facility] [address] [place] [address] [place] [address] Ticket Sales Supervisor: Shakeel Graham MD Potassium [Moles/Vol] 3.8 mmol/L Normal 3.7-5.3 [facility] Comment on above: Performed By: #### H IVCMB, PHEP #### [facility] [address] [place] [address] Ticket Sales Supervisor: Dom Fowler MD #### CP #### [facility] [address] [place], [place] [phone] Ticket Sales Supervisor: Shakeel Graham MD Protein [Mass/Vol] 5.7 g/dL Low 6.4-8.3 [facility] Comment on above: Performed By: #### H IVCMB, PHEP #### [address] [address] Ticket Sales Supervisor: Dom Fowler MD #### CP #### [facility] [address] [place] [address] Ticket Sales Supervisor: Shakeel Graham MD Sodium [Moles/Vol] 144 mmol/L Normal 135-144 [facility] Comment on above: Performed By: #### H IVCMB, PHEP #### [address] [place] [address] Ticket Sales Supervisor: Dom Fowler MD #### CP #### [facility] [address] [place] [address] Ticket Sales Supervisor: Shakeel Graham MD Staging: Normal [facility] Comment on above: Result Comment: Stag e 1: Some kidney damage normal GFR Stage 2: Mild kidney damage GFR 60-89 Stage 3: Moderate kidney damage GFR 30-59 Stage 4: Severe kidney damage GFR 15-29 Stage 5: Severe kidney damage GFR <15 ESRD - chronic treatment by dialysis or transplant Performed By: #### H IVCMB, PHEP #### [facility] [address] [place] [address] Ticket Sales Supervisor: Dom Fowler MD #### CP #### [address] [place] [address] Ticket Sales Supervisor: Shakeel Graham MD Urea nitrogen [Mass/Vol] 15 mg/dL Normal 6-20 [facility] Comment on above: Performed By: #### H IVCMB, PHEP #### [facility] [address] [place] [address] Ticket Sales Supervisor: Dom Fowler MD #### CP #### [address] [place] [address] Ticket Sales Supervisor: Shakeel Graham MD [facility] 04-26-2020 Albumin [Mass/Vol] 3.4 g/dL Low 3.5 - 5.2 g/dL [place] Albumin/Globulin [Mass ratio] 1.5 {ratio} [place] ALP [Catalytic activity/Vol] 40 U/L 35 - 104 U/L [place] ALT [Catalytic activity/Vol] 12 U/L 5 - 33 U/L [place] Anion gap [Moles/Vol] 9 mmol/L 9 - 17 mmol/L [place] AST [Catalytic activity/Vol] 12 U/L <32 [place] Bilirubin Ql (U) <0.10 Low 0.3 - 1.2 mg/dL [place], [place] Bun/Cre Ratio 26 High [place], [place] Calcium [Mass/Vol] 9.3 mg/dL 8.6 - 10. 4 mg/dL [place] Chloride [Moles/Vol] 109 mmol/L High 98 - 107 mmol/L [place] CO2 [Moles/Vol] 26 mmol/L 20 - 31 mmol/L [place] Creatinine [Mass/Vol] 0.57 mg/dL 0.5 - 0.9 mg/dL [place] GFR >60 >60 mL/min [place] GFR Non- >60 >60 mL/min [place] Glucose [Mass/Vol] 92 mg/dL 70 - 99 mg/dL [place] Interpretation and review of laboratory results Abnormal [place] Potassium [Moles/Vol] 3.8 mmol/L 3.7 - 5.3 mmol/L [place] Protein [Mass/Vol] 5.7 g/dL Low 6.4 - 8.3 g/dL [place] Sodium [Moles/Vol] 144 mmol/L 135 - 144 mmol/L [place] Urea nitrogen [Mass/Vol] 15 mg/dL 6 - 20 mg/dL [place] HCG Qualitative, Serumon hCG Qual Negative NEGATIVE [place] Comment on above: Specimens with hCG l evels near the threshold of the test (25 mIU/mL) may give a negative or indeterminate result. In such cases, another test should be performed with a new specimen in 48-72 hours. If early is suspected clinically in this setting, correlation with quantitative serum b-hCG level is suggested. [facility] has confirmed the use of plasma for this test. This has not been cleared or approved by the U.S. Food and Drug Administration. The FDA has determined that such clearance is not necessary. HCG Screen, Bloodon 04-26-20 20 HCG Qn Negative Normal NEG [facility] Comment on above: Result Comment: Spec imens with hCG levels near the threshold of the test (25 mIU/mL) may give a negative or indeterminate result. In such cases, another test should be performed with a new specimen in 48-72 hours. If early is suspected clinically in this setting, correlation with quantitative serum b-hCG level is suggested. [employer] has confirmed the use of plasma for this test. This has not been cleared or approved by the U.S. Food and Drug Administration. The FDA has determined that such clearance is not necessary. Performed By: #### H IVCMB, PHEP #### [facility] [address] [place], [place] [id number] Ticket Sales Supervisor: Dom Fowler MD #### CP #### [facility] [address] [place] [address] [place] [address] Ticket Sales Supervisor: Shakeel Graham MD HIV Ag/Abon 04-26-2020 HIV Ag/Ab NONREACTIVE Normal NR [facility] Comment on above: Result Comment: No l aboratory evidence of HIV infection. If acute HIV infection is suspected, consider testing for HIV-1 RNA. Performed By: #### H IVCMB, PHEP #### [facility] [address] [place] [address] Ticket Sales Supervisor: Dom Fowler MD #### CP #### [facility] [address] [place] [address] Ticket Sales Supervisor: Shakeel Graham MD HIV Screenon 04-26-2020 HIV Ag/Ab NONREACTIVE NONREACTIVE [facility] Comment on above: No laboratory eviden ce of HIV infection. If acute HIV infection is suspected, consider testing for HIV-[address] [facility] 04-26 Hep A Ab,IgM NONREACTIVE Normal NR [facility] Comment on above: Performed By: #### H IVCMB, PHEP #### [facility] [address] [place] [address] Ticket Sales Supervisor: Dom Fowler MD #### CP #### [facility] [address] [place] [address] [place] [address] Ticket Sales Supervisor: Shakeel Graham MD Hep B Core Ab,IgM NONREACTIVE Normal [facility] Comment on above: Performed By: #### H IVCMB, PHEP #### [facility] [address] [place] [address] Ticket Sales Supervisor: Dom Fowler MD #### CP #### [address] [place] [address] Ticket Sales Supervisor: Shakele Graham MD Hep B Surf Ag NONREACTIVE Normal [facility] Comment on above: Performed By: #### H IVCMB, PHEP #### [address] [address] Ticket Sales Supervisor: Dom Fowler MD #### CP #### [facility] [address] [place] [address] [place] [address] Ticket Sales Supervisor: Shakeel Graham MD Hep C Ab REACTIVE Abnormal [facility] Comment on above: Result Comment: The hepatitis [...] Performed By: #### H IVCMB, PHEP #### [facility] [address] [place] [address] Ticket Sales Supervisor: Dom Fowler MD #### CP #### [facility] [address] [place] [address] Ticket Sales Supervisor: Shakeel Graham MD Hepatitis Panel, Acuteon HAV IgM IA Qn (S) NONREACTIVE NONREACTIVE [place] Hep B Core Ab, IgM NONREACTIVE NONREACTIVE [place] Hepatitis B Surface Ag NONREACTIVE NONREACTIVE [place] Hepatitis C Ab REACTIVE Abnormal NONREACTIVE [place], [place] Comment on above: The hepatitis C [...] Interpretation and review of laboratory results Abnormal [place] Metabolic Panelon 04-26-2020 GFR/1.73 sq M predicted among non-blacks MDRD (S/P/Bld) [Vol rate/Area] [place] Comment on above: Stage 1: Some [...] body mass. Additional eGFR calculator available at: http://www.[employer].EnChroma/multiple_crcl_2012.htm Microscopic Urinalysison Amorphous, UA NOT REPORTED None [place], [place] Bacteria, UA NOT REPORTED None [place] Casts UA NOT REPORTED /LPF [place], [place] Crystals, UA 5 TO 10 Abnormal None /HPF [place] Crystals, UA CALCIUM OXALATE Abnormal None /HPF [place], [place] Epithelial Cells UA 0 TO 2 [place] Interpretation and review of laboratory results Abnormal [place] Mucus, UA TRACE Abnormal None [place] Other Observations UA NOT REPORTED NOT REQ. [place] RBC (U) [#/Vol] None [facility] [place] Renal Epithelial, UA NOT REPORTED 0 /HPF [place] Trichomonas, UA NOT REPORTED None [facility] [place] WBC, UA 0 TO 2 [place] Yeast, UA NOT REPORTED None [place], [place] - [place] UA w/Reflex Cultureon 2019 Acetoacetic Acid,Ur Negative Normal NEG [facility] Comment on above: Performed By: #### H IVCMB, PHEP #### [address] [address] Ticket Sales Supervisor: Dom Fowler MD #### CP #### [address] [place] [id number] Ticket Sales Supervisor: Shakeel Graham MD Bilirubin, SemiQt,Ur Negative Normal [facility] Comment on above: Performed By: #### H IVCMB, PHEP #### [address] [address] Ticket Sales Supervisor: Dom Fowler MD #### CP #### [address] [place] [id number] Ticket Sales Supervisor: Shakeel Graham MD Color (U) YELLOW Normal [facility] Comment on above: Performed By: #### H IVCMB, PHEP #### [address] [address] Ticket Sales Supervisor: Dom Fowler MD #### CP #### [facility] [address] [place] [address] [place] [address] Ticket Sales Supervisor: Shakeel Graham MD Glucose Ql (U) Negative Normal NEG [facility] Comment on above: Performed By: #### H IVCMB, PHEP #### [address] [address] Ticket Sales Supervisor: Dom Fowler MD #### CP #### [facility] [address] [place] [address] [place], [place] [id number] Ticket Sales Supervisor: Shakeel Graham MD Hemoglobin, Ur Negative Normal NEG [facility] Comment on above: Performed By: #### H IVCMB, PHEP #### [address] [address] Ticket Sales Supervisor: Dom Fowler MD #### CP #### [address] [place] [address] Ticket Sales Supervisor: Shakeel Graham MD Leukocyte esterase Test strip Ql (U) Negative Normal NEG [facility] Comment on above: Performed By: #### H IVCMB, PHEP #### [address] [address] Ticket Sales Supervisor: Dom Fowler MD #### CP #### [address] [place] [address] Ticket Sales Supervisor: Shakeel Graham MD Nitrite,Ur Negative Normal NEG [facility] Comment on above: Performed By: #### H IVCMB, PHEP #### [address] [address] Ticket Sales Supervisor: Dom Fowler MD #### CP #### [address] [place] [address] Ticket Sales Supervisor: Shakeel Graham MD pH (U) 6.5 [pH] Normal 5.0-9.0 [facility] Comment on above: Performed By: #### H IVCMB, PHEP #### [address] [address] Ticket Sales Supervisor: Dom Fowler MD #### CP #### [facility] [address] [place] [address] Ticket Sales Supervisor: Shakeel Graham MD Protein Ql (U) Negative Normal NEG [facility] Comment on above: Performed By: #### H IVCMB, PHEP #### [facility] [address] [place] [address] Ticket Sales Supervisor: Dom Fowler MD #### CP #### [address] [place] [address] Ticket Sales Supervisor: Shakeel Graham MD Specific gravity (U) [Rel density] 1.025 High 1.010-1.020 [facility] Comment on above: Performed By: #### H IVCMB, PHEP #### [facility] [address] [place] [address] Ticket Sales Supervisor: Dom Fowler MD #### CP #### [address] [place] [address] Ticket Sales Supervisor: Shakeel Graham MD Turbidity CLEAR Normal CLEAR [facility] Comment on above: Performed By: #### H IVCMB, PHEP #### [address] [address] Ticket Sales Supervisor: Dom Fowler MD #### CP #### [address] [place] [address] Ticket Sales Supervisor: Shakeel Graham MD Urobilinogen,Ur Normal Normal NORM [facility] Comment on above: Performed By: #### H IVCMB, PHEP #### [address] [address] Ticket Sales Supervisor: Dom Fowler MD #### CP #### [address] [place] [address] Ticket Sales Supervisor: Shakeel Graham MD Comment NOT REPORTED Normal [facility] Comment on above: Performed By: #### H IVCMB, PHEP #### [facility] [address] [place] [address] Ticket Sales Supervisor: Dom Fowler MD #### CP #### [address] [place] [address] Ticket Sales Supervisor: Shakeel Graham MD Urinalysis Reflex to Culture on 04-26-2020 Bilirubin Urine Negative NEGATIVE [facility], [place] Color, UA YELLOW YELLOW [facility], [place] Glucose, Ur Negative NEGATIVE [facility], [place] Interpretation and review of laboratory results Abnormal [place] Ketones Ql (U) Negative NEGATIVE [facility], [place] Leukocyte esterase Test strip Ql (U) Negative NEGATIVE [facility], [place] Nitrite, Urine Negative NEGATIVE [facility], [place] pH, UA 6.5 [place] Protein (U) [Mass/Vol] Negative NEGATIVE [facility], [place] Specific [place], UA 1.025 High [facility], [place] Turbidity UA CLEAR CLEAR [place], [place] Urinalysis Comments NOT REPORTED [facility], [place] Urine Hgb Negative NEGATIVE [facility], [place] Urobilinogen, Urine Normal Normal [place] Urinalysis,Microon 0 ----- Normal [facility] Comment on above: Performed By: #### H IVCMB, PHEP #### [place] [address] [place] [address] Ticket Sales Supervisor: Dom Fowler MD #### CP #### [address] [place] [address] Ticket Sales Supervisor: Shakeel Graham MD Crystals LM Nom (Urine sed) CALCIUM OXALATE Abnormal NONE [facility] Comment on above: Result Comment: 5 TO 10 Performed By: #### H IVCMB, PHEP #### [facility] [address] [place] [address] Ticket Sales Supervisor: Dom Fowler MD #### CP #### [facility] [address] [place] [address] Ticket Sales Supervisor: Shakeel Graham MD Epithelial cells LM.HPF (Urine sed) [#/Area] 0 TO 2 Normal 0-25 [facility] Comment on above: Performed By: #### H IVCMB, PHEP #### [address] [address] Ticket Sales Supervisor: Dom Fowler MD #### CP #### [address] [place], [place] 58[address] Ticket Sales Supervisor: Shakeel Graham MD Mucus Strands TRACE Abnormal [facility] Comment on above: Performed By: #### H IVCMB, PHEP #### [address] [address] Ticket Sales Supervisor: Dom Fowler MD #### CP #### [address] [place] [phone] Ticket Sales Supervisor: Shakeel Graham MD RBC (U) [#/Vol] None Normal 0-2 [facility] Comment on above: Performed By: #### H IVCMB, PHEP #### [address] [address] Ticket Sales Supervisor: Dom Fowler MD #### CP #### [address] [place] [address] Ticket Sales Supervisor: Shakeel Graham MD WBC (U) [#/Vol] 0 TO 2 Normal 0-5 [facility] Comment on above: Performed By: #### H IVCMB, PHEP #### [address] [address] Ticket Sales Supervisor: Dom Fowler MD #### CP #### [address] [place], [place] [phone] Ticket Sales Supervisor: Shakeel Graham MD Amorphous sediment LM Ql (Urine sed) NOT REPORTED Normal [facility] Comment on above: Performed By: #### H IVCMB, PHEP #### [address] [address] Ticket Sales Supervisor: Dom Fowler MD #### CP #### [facility] [address] [place] [address] Ticket Sales Supervisor: Shakeel Graham MD Bacteria LM.HPF (Urine sed) [#/Area] NOT REPORTED Normal NONE [facility] Comment on above: Performed By: #### H IVCMB, PHEP #### [address] [address] Ticket Sales Supervisor: Dom Fowler MD #### CP #### [address] [place] [address] Ticket Sales Supervisor: Shakeel Graham MD Casts LM.LPF (Urine sed) [#/Area] NOT REPORTED Normal [facility] Comment on above: Performed By: #### H IVCMB, PHEP #### [address] [address] Ticket Sales Supervisor: Dom Fowler MD #### CP #### [address] [place] [address] Ticket Sales Supervisor: Shakeel Graham MD Epithelial, Renal NOT REPORTED Normal 0 [facility] Comment on above: Performed By: #### H IVCMB, PHEP #### [address] [address] Ticket Sales Supervisor: Dom Fowler MD #### CP #### [address] [place] [address] Ticket Sales Supervisor: Shakeel Graham MD Other Observations NOT REPORTED Normal NREQ [facility] Comment on above: Performed By: #### H IVCMB, PHEP #### [address] [address] Ticket Sales Supervisor: Dom Fowler MD #### CP #### [facility] [address] [place], [place] [phone] Ticket Sales Supervisor: Shakeel Graham MD Trichomonas NOT REPORTED Normal NONE [facility] Comment on above: Performed By: #### H IVCMB, PHEP #### [facility] [address] [place], [place] 0058308 Ticket Sales Supervisor: Dom Fowler MD #### CP #### [facility] [address] [place] [phone] Ticket Sales Supervisor: Shakeel Graham MD Yeast LM Ql (Urine sed) NOT REPORTED Normal NONE [facility] Comment on above: Performed By: #### H IVCMB, PHEP #### [facility] [address] [place], [place] [phone] Ticket Sales Supervisor: Dom Fowler MD #### CP #### [facility] [address] [place] [address] [place] [place] [id number] Ticket Sales Supervisor: Shakeel Graham MD ED Clinical Summaryon 2019 ED Clinical Summary [address] [address] ED Clinical Summary Person Information Name: Kathryn Ervin/[facility] Age: 25 Years : 1995 Sex: Female PCP: Marital Status: Single Phone: Race: White Ethnicity: Not or Language: Frisian Visit Reason: Drug withdrawal; Drug withdrawal Acuity: 3 Enc Type: Emergency Med Service: Emergency Medicine Arrival: 03/16/2020 20:10:45 Discharge: 03/17/2020 02:12:00 LOS: 000 06:02 Checkin: 03/16/2020 20:10:45 Checkout: 03/17/2020 02:12:00 Dispo Type: Home or Self Care Address: [address] [place] [address] Provider Notes: Diagnosis: 1:Affective disorder; 2:Drug usage [...] range between ( 27.2 and 40.8 ) [place] Auto: 11.4 % -- Normal range between [...] range between ( 36.0 and 46.0 ) [place] Absolute: 1.5 x10 MCH: 27.4 pg -- [...] 03/16/2020 20:20:41 Follow up: With: Address: When: [facility] In [place], [place] Within 1 to 2 days Discharge Orders: Discharge Patient 03/17/20 1:45:00 EDT, Discharge to Home, Self Patient Education Information: Understanding Methamphetamine Abuse and Addiction; Treating Affective (Mood) Disorders [facility] Poison Help line: . [facility] [place] Mental Health Hotline: [place] Tobacco Quit Line: [place], [place]) [address]: [phone] [place], [place]) [address]: [phone] [facility] [address] [place], [place]: [phone] Normal [facility] hCG Quantitativeon 0 Beta hCG Qnt 1.7 mIU/mL Normal 0.0-4.9 [facility] Comment on above: Result Comment: 0.0 - 4.9 Negative for 5.0 - 25.0 Indeterminant for : Suggest repeat in 72 hours. >25.0 Positive for Performed By: #### H CG ####[place] [address] .UA Microscp Aon 03-16-2020 UA Hyline Cast Qual >20 Abnormal Negative [facility] Comment on above: Performed By: #### C [id number] ####[place] [address] UA Mucus Present Abnormal Absent [facility] Comment on above: Performed By: #### C [id number] ####[place] [id number] UA RBC Quant 12 /HPF High 0-5 [facility] Comment on above: Performed By: #### C [id number] ####[address] [address] UA Squepi Cells Quant 6 /HPF Normal 0-29 [facility] Comment on above: Performed By: #### C [id number] ####[address] [address] UA WBC Quant 7 /HPF High 0-5 [facility] Comment on above: Performed By: #### C [id number] ####[facility] [place] [address] .eGFRon 03-16-2020 eGFR AA 52 mL/min/1.73m? Low >=60 [facility] Comment on above: Result Comment: Resu lt = 0-14.9 mL/min/1.73 m2 Kidney failure or Dialysis Result = 15-29 mL/min/1.73 m2 Severe decrease in GFR Result = 30-59 mL/min/1.73 m2 Moderate decrease in GFR Result >= 60 mL/min/1.73 m2 Normal or increased GFR Performed By: #### E GFR #### [address] [address] eGFR Non-AA 43 mL/min/1.73m? Low >=60 [facility] Comment on above: Result Comment: Resu [...] dosing. Performed By: #### E GFR #### [address] [address] CBC w/ Diffon 03-16-2020 Erythrocyte distribution width (RBC) [Ratio] 15.9 % High 11.6-14.8 [facility] Comment on above: Performed By: #### C BC #### [address] [address] Hematocrit (Bld) [Volume fraction] 37.5 % Normal 36.0-46.0 [facility] Comment on above: Performed By: #### C BC #### [address] [address] Hemoglobin (Bld) [Mass/Vol] 12.5 g/dL Normal 12.0-16.0 [facility] Comment on above: Performed By: #### C BC #### [address] [address] MCH (RBC) [Entitic mass] 27.4 pg Normal 27.0-35.0 [facility] Comment on above: Performed By: #### C BC #### [address] [address] MCHC (RBC) [Mass/Vol] 33.2 % Normal 31.0-37.0 [facility] Comment on above: Performed By: #### C BC #### [address] [address] MCV (RBC) [Entitic vol] 82.4 fL Normal 80.0-100.0 [facility] Comment on above: Performed By: #### C BC #### [address] [address] Platelet mean volume (Bld) [Entitic vol] 9.4 fL Normal 6.7-10.6 [facility] Comment on above: Performed By: #### C BC #### [address] [address] Platelets (Bld) [#/Vol] 307 x10*3/mcL Normal 150-350 [facility] Comment on above: Performed By: #### C BC #### [address] [address] RBC (Bld) [#/Vol] 4.55 x10*6/mcL Normal 3.80-5.20 [facility] Comment on above: Performed By: #### C BC #### [address] [address] WBC (Bld) [#/Vol] 12.9 x10*3/mcL High 4.5-11.0 [facility] Comment on above: Performed By: #### C BC #### [address] [address] CMPon 03-16-2020 Albumin [Mass/Vol] 5.2 g/dL High 3.2-4.9 [facility] Comment on above: Result Comment: [facility] updated the methodology used for albumin testing on 04/24/18. Albumin measurement was performed using a bromcresol purple dye-binding assay. Performed By: #### C OMP #### [address] [address] Albumin/Globulin [Mass ratio] 1.5 {ratio} Normal 1.1-2.2 [facility] Comment on above: Performed By: #### C OMP #### [address] [address] Alk Phos 47 IU/L Normal 32-91 [facility] Comment on above: Performed By: #### C OMP #### [address] [address] ALT [Catalytic activity/Vol] 19 U/L Normal 14-54 [facility] Comment on above: Performed By: #### C OMP #### [address] [address] Anion gap [Moles/Vol] 22 mmol/L High 7-17 [facility] Comment on above: Performed By: #### C OMP #### [address] [address] AST [Catalytic activity/Vol] 31 U/L Normal 15-41 [facility] Comment on above: Performed By: #### C OMP #### [address] [place] [address] Bili Total 1.4 mg/dL High 0.3-1.2 [facility] Comment on above: Performed By: #### C OMP #### [address] [address] Calcium [Mass/Vol] 10.2 mg/dL Normal 8.5-10.3 [facility] Comment on above: Performed By: #### C OMP #### [address] [address] Chloride [Moles/Vol] 100 mmol/L Normal 98-110 [facility] Comment on above: Performed By: #### C OMP #### [address] [address] CO2 [Moles/Vol] 19 mmol/L Low 22-32 [facility] Comment on above: Performed By: #### C OMP #### [address] [address] Creatinine [Mass/Vol] 1.47 mg/dL High 0.44-1.03 [facility] Comment on above: Performed By: #### C OMP #### [address] [address] Glucose [Mass/Vol] 85 mg/dL Normal 70-99 [facility] Comment on above: Performed By: #### C OMP #### [address] [address] Potassium [Moles/Vol] 3.7 mmol/L Normal 3.4-4.8 [facility] Comment on above: Performed By: #### C OMP #### [address] [address] Protein [Mass/Vol] 8.7 g/dL High 6.5-8.1 [facility] Comment on above: Performed By: #### C OMP #### [address] [address] Sodium [Moles/Vol] 137 mmol/L Normal 133-142 [facility] Comment on above: Performed By: #### C OMP #### [address] [address] Urea nitrogen [Mass/Vol] 25 mg/dL Normal 8-26 [facility] Comment on above: Performed By: #### C OMP #### [address] [address] Urea nitrogen/Creatinine [Mass ratio] 17.0 mg/mg Normal 10.0-20.0 [facility] Comment on above: Performed By: #### C OMP #### [address] [address] CPKon 03-16-2020 Creatine Phosphokinase 439 IU/L High 38-234 [facility] Comment on above: Performed By: #### C P #### [address] [address] Diff Autoon 03-16-2020 Baso Absolute 0.0 x10*3/mcL Normal 0.0-0.2 [facility] Comment on above: Performed By: #### . Automated Diff #### [address] [address] Basophils/100 WBC (Bld) 0.4 % Normal 0.0-1.5 [facility] Comment on above: Performed By: #### . Automated Diff #### [address] [address] Eos Absolute 0.0 x10*3/mcL Normal 0.0-0.4 [facility] Comment on above: Performed By: #### . Automated Diff #### [address] [address] Eosinophils/100 WBC (Bld) 0.1 % Normal 0.0-5.4 [facility] Comment on above: Performed By: #### . Automated Diff #### [address] [address] Lymphocytes (Bld) [#/Vol] 1.4 x10*3/mcL Normal 1.0-4.8 [facility] Comment on above: Performed By: #### . Automated Diff #### [address] [address] Lymphocytes/100 WBC (Bld) 10.8 % Low 27.2-40.8 [facility] Comment on above: Performed By: #### . Automated Diff #### [address] [address] [place] Absolute 1.5 x10*3/mcL High 0.1-1.1 [facility] Comment on above: Performed By: #### . Automated Diff #### [facility] [address] [place] [address] Monocytes/100 WBC (Bld) 11.4 % Normal 3.7-11.9 [facility] Comment on above: Performed By: #### . Automated Diff #### [facility] [address] [place] [address] Neutro Absolute 10.0 x10*3/mcL High 1.8-7.7 [facility] Comment on above: Performed By: #### . Automated Diff #### [facility] [address] [place] [address] Neutro Auto 77.3 % High 47.2-70.8 [facility] Comment on above: Performed By: #### . Automated Diff #### [address] [address] ED Note-Nursingon 03-16-2020 ED Note-Nursing Lab called about add ons Electronically signed by Barbara Holman 03/16/20 20:49 EDT Normal [facility] ED Note-Physicianon 03-16-20 ED Note-Physician Chief [...] that she has residential set up at [facility] in [place], [place] but she has to detox first. [...] as well. She was seen by Alonso, psychiatric social worker supervisor who has arranged for her to go to [facility] tomorrow as patient is interested in treatment. Verbally contracted to safety and filled out a safety plan. Alonso with social work spoke with director fraud, Jeelna who will arrange for further follow-up when they arrive tomorrow. Family is agreeable with plan. Patient has good support. They will return if any changes of symptoms or concern. Silvia Castañeda scribing for and in the presence of Dr. Cornell. Scribe Attestation: The information in this document, created by the medical technologist prn for me, accurately reflects the services I [...] High Lymph Auto 03/16/20 20:39 10.8 Low [place] Auto 03/16/20 20:39 11.4 Eos Auto 03/16/20 20:39 0.1 Basophil Auto 03/16/20 20:39 0.4 Neutro Absolute 03/16/20 20:39 10.0 High Lymph Absolute 03/16/20 20:39 1.4 [place] Absolute 03/16/20 20:39 1.5 High Eos Absolute [...] Lima Cornell MD 03/17/2020 04:16 EDT Normal [facility] Ethanolon 03-16-2020 Ethanol [Mass/Vol] mg/dL Normal <=9 [facility] Comment on above: Result Comment: To c onvert mg/dL to g/dL, divide result by 1,000. Legal limit of intoxication is 80 mg/dL (0.08 g/dL). Performed By: #### A LC #### [address] [address] UA w Culture if Indon 2019 Color (U) Terri Normal [facility] Comment on above: Performed By: #### U CI #### [address] [address] Glucose (U) [Mass/Vol] Negative Normal Negative [facility] Comment on above: Performed By: #### U CI #### [address] [address] Ketones Ql (U) 20 mg/dL Abnormal Negative [facility] Comment on above: Performed By: #### U CI #### [address] [address] UA Blood Small Abnormal Negative [facility] Comment on above: Performed By: #### U CI #### [address] [address] UA Clarity Cloudy Normal [facility] Comment on above: Performed By: #### U CI #### [address] [address] UA Leukocyte Esterase Trace Abnormal Negative [facility] Comment on above: Performed By: #### U CI #### [address] [address] UA Nitrite Negative Normal Negative [facility] Comment on above: Performed By: #### U CI #### [address] [address] UA pH 5.0 Normal 4.5 - 7.8 [facility] Comment on above: Performed By: #### U CI #### [address] [address] UA Protein 100 mg/dL Abnormal Negative [facility] Comment on above: Performed By: #### U CI #### [address] [address] UA Source Clean Catch Normal [facility] Comment on above: Performed By: #### U CI #### [address] [address] UA Spec Grav 1.025 Normal 1.003-1.035 [facility] Comment on above: Performed By: #### U CI #### [address] [address] UA Urobilinogen 0.2 mg/dL Normal 0.2 - 1.0 [facility] Comment on above: Performed By: #### U CI #### [place] [id number] Urobilinogen Qn (U) Small Abnormal Negative [facility] Comment on above: Performed By: #### U CI #### [address] [address] UDS Compon 03-16-2020 Creatinine [Mass/Vol] mg/dL Normal [facility] Comment on above: Performed By: #### C [id number] #### [address] [address] Ur Amph Scrn Positive Abnormal NEG = <1000 [facility] Comment on above: Result Comment: This unconfirmed positive screening result is to be used for medical treatment purposes only. Unconfirmed screening results must not be used for non-medical purposes. (e.g. employment testing, legal testing). Performed By: #### C [id number] #### [address] [address] Ur Anastasia Scrn Negative Normal NEG = <200 [facility] Comment on above: Performed By: #### C [id number] #### [facility] [address] [facility] [address] Ur Benzodia Scrn Negative Normal NEG = <200 [facility] Comment on above: Performed By: #### C [id number] #### [facility] [address] [place] [address] Ur Cannab Scrn Negative Normal NEG = <50 [facility] Comment on above: Performed By: #### C [id number] #### [facility] [address] [place] [address] [place] [address] Ur Cocaine Scrn Negative Normal NEG = <300 [facility] Comment on above: Performed By: #### C [id number] #### [address] [place] [address] Ur Methadone Scn Negative Normal NEG = <300 [facility] Comment on above: Performed By: #### C [id number] #### [address] [place] [address] Ur Opiate Scrn Negative Normal NEG = <300 [facility] Comment on above: Performed By: #### C [id number] #### [facility] [address] [place] [address], [place] [address] Ur Oxy Screen Negative Normal NEG = <100 [facility] Comment on above: Performed By: #### C [id number] #### [facility] [address] [place] [address] [place] [address] Ur Oxy Scrn Qnt 54 ng/mL Normal <=99 [facility] Comment on above: Performed By: #### C [id number] #### [facility] [address] [place] [address] [place] [address] Ur PCP Scrn Negative Normal NEG = <25 [facility] Comment on above: Performed By: #### C [id number] #### [address] [place] [address] UA pH 5.0 Normal 4.5 - 7.8 [facility] Comment on above: Performed By: #### C [id number] #### [facility] [address] [place] [address] UA Spec Grav 1.024 Normal 1.003-1.035 [facility] Comment on above: Performed By: #### C [id number] #### [facility] [address] [place] [address] Chlamydia/GC DNA, Uron 11-23 Chlamydia Probe, Ur Negative Normal NEG [facility] Comment on above: Result Comment: CHLA [...] Performed By: #### H IVCMB, PHEP #### [address] [id number] Ticket Sales Supervisor: oDm Fowler MD #### CP #### [facility] [address] [place], [facility] Ticket Sales Supervisor: Shakeel Graham MD Gonorrhea Probe, Ur Negative Normal NEG [facility] Comment on above: Result Comment: NEIS [...] Performed By: #### H IVCMB, PHEP #### [place] [address] [place], [place] 1975308 Ticket Sales Supervisor: Dom Fowler MD #### CP #### [facility] [address] [place] [address] Ticket Sales Supervisor: Shakeel Graham MD Cult,Urineon 11-22-2019 Cult,Urine Specimen Description .VOIDED URINE Special Requests NOT REPORTED Culture NO SIGNIFICANT GROWTH Report Status FINAL 11/22/2019 Normal [facility] Comment on above: Performed By: #### H IVCMB, PHEP #### [facility] [address] [place] [address] Ticket Sales Supervisor: Dom Fowler MD #### CP #### [facility] [address] [place] [address] Ticket Sales Supervisor: Shakeel Graham MD HIV Ag/Abon 11-21-2019 HIV Ag/Ab NONREACTIVE Normal NR [facility] Comment on above: Result Comment: No l aboratory evidence of HIV infection. If acute HIV infection is suspected, consider testing for HIV-1 RNA. Performed By: #### H IVCMB, PHEP #### [place] [address] [place] [address] Ticket Sales Supervisor: Dom Fowler MD #### CP #### [facility] [address] [place] [address] Ticket Sales Supervisor: Shakeel Graham MD HIV Screenon 11-21-2019 HIV Ag/Ab NONREACTIVE NONREACTIVE [place], [place] Comment on above: No laboratory eviden ce of HIV infection. If acute HIV infection is suspected, consider testing for HIV-1 RNA. Hep C Abon 11-21-2019 Hep C Ab REACTIVE Abnormal NR [facility] Comment on above: Result Comment: The [...] Performed By: #### H IVCMB, PHEP #### [facility] [address] [place] [address] Ticket Sales Supervisor: Dom Fowler MD #### CP #### [facility] [address] [place] [address] [place] [address] Ticket Sales Supervisor: Shakeel Graham MD Profileon 0 Hep B Surf Ag NONREACTIVE Normal NR [facility] Comment on above: Performed By: #### H IVCMB, PHEP #### [place] [address] [place] [address] Ticket Sales Supervisor: Dom Fowler MD #### CP #### [address] [place] [address] Ticket Sales Supervisor: Shakeel Graham MD T.pallidum Ab Screen NONREACTIVE Normal NR [facility] Comment on above: Result Comment: T. pallidum antibodies are not detected. There is no serological evidence of infection with T. pallidum (early primary syphilis cannot be excluded). Retest in 2-4 weeks if syphilis is clinically suspect. Performed By: #### H IVCMB, PHEP #### [address] [address] Ticket Sales Supervisor: Dom Fowler MD #### CP #### [address] [place], [place] [address]83 Ticket Sales Supervisor: Shakeel Graham MD Rubella Ab, IgG 323.1 IU/mL Normal [facility] Comment on above: Result Comment: REFERENCE RANGE: <5.0 NON-REACTIVE (non-immune) 5.0 TO 9.9 EQUIVOCAL >=10.0 REACTIVE (immune) Performed By: #### H IVCMB, PHEP #### [address] [address] Ticket Sales Supervisor: Dom Fowler MD #### CP #### [address] [place], [place] 7406983 Ticket Sales Supervisor: Shakeel Graham MD HCG, Quanton 11-20-2019 HCG, Quant [address] IU/L High <5 [facility] Comment on above: Result Comment: Non-preg [...] Performed By: #### H IVCMB, PHEP #### [facility] [employer] [address] [place] [address] Ticket Sales Supervisor: Dom Fowler MD #### CP #### [facility] [address] [place] [address] Ticket Sales Supervisor: Shakeel Graham MD HCG, Quantitative, on 11-20-2019 hCG Quant 51719 High <5 IU/L [place], [place] Comment on above: Non-preg premeno <=5 Postmeno <=8 Male <=3 If HCG results do not concur with clinical observations, additional testing to confirm results is recommended. Elevated results not associated with may be found in patients with other diseases such as tumors of the germ cells (testis, ovaries, etc.), bladder, pancreas, stomach, lungs, and liver. Interpretation and review of laboratory results Abnormal [place], [place] Hepatitis C Antibodyon 11-19 Hepatitis C Ab REACTIVE Abnormal NONREACTIVE [place], [place] Comment on above: The hepatitis C [...] Interpretation and review of laboratory results Abnormal [place], [place] TYPE AND SCREENon 0 11-20-2019 ABO/Rh Positive [place], [place] Profileon 0 Abs. Basophil 0.03 k/uL Normal 0.00-0.20 [facility] Comment on above: Performed By: #### H IVCMB, PHEP #### [facility] [employer] [address] [place] [address] Ticket Sales Supervisor: Dom Fowler MD #### CP #### [facility] [address] [place] [address] Dr. [place] [phone] ( Ticket Sales Supervisor: Shakeel Graham MD Abs.Imm.Granulocyte <0.03 Normal 0.00-0.30 [facility] Comment on above: Performed By: #### H IVCMB, PHEP #### [place] [address] Ticket Sales Supervisor: Dom Fowler MD #### CP #### [address] [place] [phone] ( Ticket Sales Supervisor: Shakeel Graham MD Abs.Neutrophil (Seg) 2.95 k/uL Normal 1.50-8.10 [facility] Comment on above: Performed By: #### H IVCMB, PHEP #### [place] [address] Ticket Sales Supervisor: Dom Fowler MD #### CP #### [address] [place] [phone] ( Ticket Sales Supervisor: Shakeel Graham MD Basophils/100 WBC (Bld) 1 % Normal 0-2 [facility] Comment on above: Performed By: #### H IVCMB, PHEP #### [place] [address] Ticket Sales Supervisor: Dom Fowler MD #### CP #### [facility] [address] [place] [address] [place] [address] Ticket Sales Supervisor: Shakeel Graham MD Eosinophils (Bld) [#/Vol] 0.09 10*3/uL Normal 0.00-0.44 [facility] Comment on above: Performed By: #### H IVCMB, PHEP #### [address] [address] Ticket Sales Supervisor: Dom Fowler MD #### CP #### [address] [place], [place] 0278783 Ticket Sales Supervisor: Shakeel Graham MD Eosinophils/100 WBC (Bld) 2 % Normal 1-4 [facility] Comment on above: Performed By: #### H IVCMB, PHEP #### [address] [address] Ticket Sales Supervisor: Dom Fowler MD #### CP #### [address] [place], [place] 3016383 Ticket Sales Supervisor: Shakeel Graham MD Erythrocyte distribution width (RBC) [Ratio] 14.0 % Normal 11.8-14.4 [facility] Comment on above: Performed By: #### H IVCMB, PHEP #### [address] [id number] Ticket Sales Supervisor: Dom Fowler MD #### CP #### [address] [place], [place] [phone] Ticket Sales Supervisor: Shakeel Graham MD Hematocrit (Bld) [Volume fraction] 37.7 % Normal 36.3-47.1 [facility] Comment on above: Performed By: #### H IVCMB, PHEP #### [address] [address] Ticket Sales Supervisor: Dom Fowler MD #### CP #### [address] [place], [place] 7149383 Ticket Sales Supervisor: Shakeel Graham MD Hemoglobin (Bld) [Mass/Vol] 11.8 g/dL Low 11.9-15.1 [facility] Comment on above: Performed By: #### H IVCMB, PHEP #### [address] [address] Ticket Sales Supervisor: Dom Fowler MD #### CP #### [address] [place] [id number] Ticket Sales Supervisor: Shakeel Graham MD Immature granulocytes (Bld) [#/Vol] 0 % Normal 0 [facility] Comment on above: Performed By: #### H IVCMB, PHEP #### [address] [address] Ticket Sales Supervisor: Dom Fowler MD #### CP #### [facility] [address] [place] [phone] Ticket Sales Supervisor: Shakeel Graham MD Lymphocytes (Bld) [#/Vol] 1.50 10*3/uL Normal 1.10-3.70 [facility] Comment on above: Performed By: #### H IVCMB, PHEP #### [address] [address] Ticket Sales Supervisor: Dom Fowler MD #### CP #### [facility] [address] [place] [address] [place] [phone] Ticket Sales Supervisor: Shakeel Graham MD Lymphocytes/100 WBC (Bld) 30 % Normal 24-43 [facility] Comment on above: Performed By: #### H IVCMB, PHEP #### [address] [address] Ticket Sales Supervisor: Dom Fowler MD #### CP #### [address] [place] [phone] Ticket Sales Supervisor: Shakeel Graham MD MCH (RBC) [Entitic mass] 26.5 pg Normal 25.2-33.5 [facility] Comment on above: Performed By: #### H IVCMB, PHEP #### [address] [address] Ticket Sales Supervisor: Dom Fowler MD #### CP #### [facility] [address] [place] [phone] Ticket Sales Supervisor: Shakeel Graham MD MCHC (RBC) [Mass/Vol] 31.3 g/dL Normal 28.4-34.8 [facility] Comment on above: Performed By: #### H IVCMB, PHEP #### [address] [address] Ticket Sales Supervisor: Dom Fowler MD #### CP #### [address] [place] [phone] Ticket Sales Supervisor: Shakeel Graham MD MCV (RBC) [Entitic vol] 84.5 fL Normal 82.6-102.9 [facility] Comment on above: Performed By: #### H IVCMB, PHEP #### [address] [address] Ticket Sales Supervisor: Dom Fowler MD #### CP #### [address] [place] [phone] Ticket Sales Supervisor: Shakeel Graham MD Monocytes (Bld) [#/Vol] 0.37 10*3/uL Normal 0.10-1.20 [facility] Comment on above: Performed By: #### H IVCMB, PHEP #### [address] [address] Ticket Sales Supervisor: Dom Fowler MD #### CP #### [address] [place] [phone] Ticket Sales Supervisor: Shakeel Graham MD Monocytes/100 WBC (Bld) 8 % Normal 3-12 [facility] Comment on above: Performed By: #### H IVCMB, PHEP #### [address] [address] Ticket Sales Supervisor: Dom Fowler MD #### CP #### [address] [place] [address] Ticket Sales Supervisor: Shakeel Graham MD Neutrophil (Seg) 59 % Normal 36-65 [facility] Comment on above: Performed By: #### H IVCMB, PHEP #### [place] [address] [place] [address] Ticket Sales Supervisor: Dom Fowler MD #### CP #### [facility] [address] [place], [place] 9[address]2783 Ticket Sales Supervisor: Shakeel Graham MD NRBC Automated 0.0 per 100 WBC Normal 0.0 [facility] Comment on above: Performed By: #### H IVCMB, PHEP #### [address] [address] Ticket Sales Supervisor: Dom Fowler MD #### CP #### [facility] [address] [place] [phone] Ticket Sales Supervisor: Shakeel Graham MD Platelet mean volume (Bld) [Entitic vol] 11.2 fL Normal 8.1-13.5 [facility] Comment on above: Performed By: #### H IVCMB, PHEP #### [address] [address] Ticket Sales Supervisor: Dom Fowler MD #### CP #### [facility] [address] [place] [address] [place] [phone] Ticket Sales Supervisor: Shakeel Graham MD Platelets (Bld) [#/Vol] 254 10*3/uL Normal 138-453 [facility] Comment on above: Performed By: #### H IVCMB, PHEP #### [address] [address] Ticket Sales Supervisor: Dom Fowler MD #### CP #### [facility] [address] [place] [address] [place], [place] [id number] Ticket Sales Supervisor: Shakeel Graham MD RBC (Bld) [#/Vol] 4.46 10*6/uL Normal 3.95-5.11 [facility] Comment on above: Performed By: #### H IVCMB, PHEP #### [address] [address] Ticket Sales Supervisor: Dom Fowler MD #### CP #### [facility] [address] [place] [address] [place] [address] Ticket Sales Supervisor: Shakeel Graham MD WBC (Bld) [#/Vol] 5.0 10*3/uL Normal 3.5-11.3 [facility] Comment on above: Performed By: #### H IVCMB, PHEP #### [address] [address] Ticket Sales Supervisor: Dom Fowler MD #### CP #### [address] [place] [address] Ticket Sales Supervisor: Shakeel Graham MD Auto Diff Performed NOT REPORTED Normal [facility] Comment on above: Performed By: #### H IVCMB, PHEP #### [address] [address] Ticket Sales Supervisor: Dom Fowler MD #### CP #### [address] [place] [address] Ticket Sales Supervisor: Shakeel Graham MD Platelets (Bld) [#/Vol] NOT REPORTED Normal [facility] Comment on above: Performed By: #### H IVCMB, PHEP #### [address] [address] Ticket Sales Supervisor: Dom Fowler MD #### CP #### [address] [place] [address] Ticket Sales Supervisor: Shakeel Graham MD RBC morphology finding Nom (Bld) NOT REPORTED Normal [facility] Comment on above: Performed By: #### H IVCMB, PHEP #### [address] [address] Ticket Sales Supervisor: Dom Fowler MD #### CP #### [address] [place] [address] Ticket Sales Supervisor: Shakeel Graham MD WBC Morphology NOT REPORTED Normal [facility] Comment on above: Performed By: #### H IVCMB, PHEP #### [address] [phone] Ticket Sales Supervisor: Dom Fowler MD #### CP #### [address] [place] [id number] Ticket Sales Supervisor: Shakeel Graham MD Type + Scrnon 11-19 Type + Scrn Negative Normal [facility] Comment on above: Performed By: #### H IVCMB, PHEP #### [address] [address] Ticket Sales Supervisor: Dom Fowler MD #### CP #### [address] [place] [phone] Ticket Sales Supervisor: Shakeel Graham MD Toxicology [facility] Amphetamine(s),Ur Negative Normal NEG [facility] Comment on above: Performed By: #### H IVCMB, PHEP #### [address] [address] Ticket Sales Supervisor: Dom Fowler MD #### CP #### [address] [place], [place] 7082183 Ticket Sales Supervisor: Shakeel Graham MD Barbiturate(s),Ur Negative Normal NEG [facility] Comment on above: Performed By: #### H IVCMB, PHEP #### [address] [address] Ticket Sales Supervisor: Dom Fowler MD #### CP #### [address] [place] [address] Ticket Sales Supervisor: Shakeel Graham MD Benzodiazepine(s) Negative Normal NEG [facility] Comment on above: Performed By: #### H IVCMB, PHEP #### [facility] [address] [place] [address] Ticket Sales Supervisor: Dom Fowler MD #### CP #### [facility] [address] [place] [address] [place], [place] 2332083 Ticket Sales Supervisor: Shakeel Graham MD Buprenorphrine, Ur Negative Normal NEG [facility] Comment on above: Performed By: #### H IVCMB, PHEP #### [address] [address] Ticket Sales Supervisor: Dom Fowler MD #### CP #### [facility] [address] [place] [address] [place] [address] Ticket Sales Supervisor: Shakeel Graham MD Cannabinoid(s),Ur Negative Normal NEG [facility] Comment on above: Performed By: #### H IVCMB, PHEP #### [address] [address] Ticket Sales Supervisor: Dom Fowler MD #### CP #### [facility] [address] [place] [address] Dr[place] [phone] Ticket Sales Supervisor: Shakeel Graham MD Cocaine Metabolite Negative Normal [facility] Comment on above: Performed By: #### H IVCMB, PHEP #### [address] [address] Ticket Sales Supervisor: Dom Fowler MD #### CP #### [facility] [address] [place] [address] [place], [place] [phone] Ticket Sales Supervisor: Shakeel Graham MD Methadone Ql (U) Negative Normal NEG [facility] Comment on above: Performed By: #### H IVCMB, PHEP #### [address] [address] Ticket Sales Supervisor: Dom Fowler MD #### CP #### [facility] [address] [place] [address] Dr. [place], [place] [phone] Ticket Sales Supervisor: Shakeel Graham MD Methamphetamine, Ur Negative Normal NEG [facility] Comment on above: Performed By: #### H IVCMB, PHEP #### [facility] [address] [place] [address] Ticket Sales Supervisor: Dom Fowler MD #### CP #### [address] [place], [place] 3208483 Ticket Sales Supervisor: Shakeel Graham MD Opiate(s), Ur Negative Normal NEG [facility] Comment on above: Performed By: #### H IVCMB, PHEP #### [address] [address] Ticket Sales Supervisor: Dom Fowler MD #### CP #### [address] [place], [place] 2135683 Ticket Sales Supervisor: Shakeel Graham MD Oxycodone, Urine Negative Normal NEG [facility] Comment on above: Performed By: #### H IVCMB, PHEP #### [facility] [address] [place] [address] Ticket Sales Supervisor: Dom Fowler MD #### CP #### [address] [place], [place] 2061483 Ticket Sales Supervisor: Shakeel Graham MD Phencyclidine, Ur Negative Normal NEG [facility] Comment on above: Performed By: #### H IVCMB, PHEP #### [address] [address] [address] Ticket Sales Supervisor: Dom Fowler MD #### CP #### [address] [place], [place] [id number] Ticket Sales Supervisor: Shakeel Graham MD Propoxyphene,Urine Negative Normal NEG [facility] Comment on above: Performed By: #### H IVCMB, PHEP #### [address] [address] Ticket Sales Supervisor: Dom Fowler MD #### CP #### [facility] [address] [place] [address] [place] [address] Ticket Sales Supervisor: Shakeel Graham MD Tricyclic antidepressants Screen Ql (U) Negative Normal NEG [facility] Comment on above: Result Comment: Drug screen results are to be used for medical purposes only. All positive results are unconfirmed. Testing for employment or legal uses should be sent to a reference laboratory for confirmation. Performed By: #### H IVCMB, PHEP #### [address] [address] Ticket Sales Supervisor: Dom Fowler MD #### CP #### [address] [place], [place] [phone] Ticket Sales Supervisor: Shakeel Graham MD Interpretive Info NOT REPORTED Normal [facility] Comment on above: Performed By: #### H IVCMB, PHEP #### [address] [address] Ticket Sales Supervisor: Dom Fowler MD #### CP #### [address] [place], [place] 2004[address] Ticket Sales Supervisor: Shakeel Graham MD MDMA, Urine NOT REPORTED Normal NEG [facility] Comment on above: Performed By: #### H IVCMB, PHEP #### [address] [address] Ticket Sales Supervisor: Dom Fowler MD #### CP #### [facility] [address] [place] [address] [address] [place], [place] [phone] Ticket Sales Supervisor: Shakeel Graham MD Urine Drug Screen, Magda grieron 11-20-2019 Amphetamine Screen, Ur Negative NEGATIVE [facility] [place] Barbiturate Screen, Ur Negative NEGATIVE [facility] [place] Benzodiazepine Screen, Urine Negative NEGATIVE [facility] [place] Buprenorphine Urine Negative NEGATIVE [facility] [place] Cannabinoid Scrn, Ur Negative NEGATIVE [facility] [place] Cocaine Metabolite, Urine Negative NEGATIVE [facility] [place] MDMA, Urine NOT REPORTED NEGATIVE [facility] [place] Methadone Screen, Urine Negative NEGATIVE [facility] [place] Methamphetamine, Urine Negative NEGATIVE [facility] [place] Opiates, Urine Negative NEGATIVE [facility] [place] Oxycodone Screen, Ur Negative NEGATIVE [facility] [place] Phencyclidine, Urine Negative NEGATIVE [facility] [place] Propoxyphene, Urine Negative NEGATIVE [facility] [place] Test Information NOT REPORTED [facility] [place] Tricyclic Antidepressants, Urine Negative NEGATIVE [facility] [place] Comment on above: Drug screen results are to be used for medical purposes only. All positive results are unconfirmed. Testing for employment or legal uses should be sent to a reference laboratory for confirmation. Chlamydia/GC DNA, Uron 06-20 Chlamydia Probe, Ur Negative Normal NEG [facility] Comment on above: Result Comment: CHLA [...] nucleic acid target. Performed By: #### U [facility] #### [address] [place] [address] Ticket Sales Supervisor: Dom Fowler MD Gonorrhea Probe, Ur Negative Normal NEG [facility] Comment on above: Result Comment: NEIS [...] target. Performed By: #### U CGP #### [address] [address] Ticket Sales Supervisor: Dom Fowler MD Cult,Urineon 06-20-2019 Cult,Urine Specimen Description .CLEAN CATCH URINE Special Requests NOT REPORTED Culture NO SIGNIFICANT GROWTH Report Status FINAL 06/20/2019 Normal [facility] Comment on above: Performed By: #### H IVCMB, PHEP #### [address] [address] Ticket Sales Supervisor: Dom Fowler MD #### CP #### [facility] [address] [place] [address] Ticket Sales Supervisor: Shakeel Graham MD HIV Ag/Abon 06-20-2019 HIV Ag/Ab NONREACTIVE Normal [facility] Comment on above: Result Comment: No l aboratory evidence of HIV infection. If acute HIV infection is suspected, consider testing for HIV-1 RNA. Performed By: #### A HCV, HIVCMB #### [address] [address] Ticket Sales Supervisor: Dom Fowler MD Hep C Abon 06-20-2019 Hep C Ab REACTIVE Abnormal [facility] Comment on above: Result Comment: The hepatitis [...] Performed By: #### A HCV, HIVCMB #### [address] [address] Ticket Sales Supervisor: Dom Fowler MD Profileon 9 T.pallidum Ab Screen NONREACTIVE Normal [facility] Comment on above: Result Comment: T. pallidum antibodies are not detected. There is no serological evidence of infection with T. pallidum (early primary syphilis cannot be excluded). Retest in 2-4 weeks if syphilis is clinically suspect. Performed By: #### P RENAT #### [address] [place] [address] Ticket Sales Supervisor: Dom Fowler MD [facility] [address] [place] [address] Dr. [place], [place] [phone] Ticket Sales Supervisor: Shakeel Graham MD Hep B Surf Ag NONREACTIVE Normal NR [facility] Comment on above: Performed By: #### P RENAT #### [address] [address] Ticket Sales Supervisor: Dom Fowler MD [address] [place] [phone] Ticket Sales Supervisor: Shakeel Graham MD Rubella Ab, IgG 286.1 IU/mL Normal [facility] Comment on above: Result Comment: REFERENCE RANGE: <5.0 NON-REACTIVE (non-immune) 5.0 TO 9.9 EQUIVOCAL >=10.0 REACTIVE (immune) Performed By: #### P RENAT #### [address] [address] Ticket Sales Supervisor: Dom Fowler MD [address] [place], [facility] Ticket Sales Supervisor: Shakeel Graham MD HCG, Quanton 06-19-2019 HCG, Quant [address] IU/L High <5 [facility] Comment on above: Result Comment: Non-preg [...] liver. Performed By: #### B HCG #### [facility] [address] [place] [address] [place] [address] Ticket Sales Supervisor: Shakeel Graham MD HCG, Quantitative, on 06-19-2019 hCG Quant [id number] High <5 IU/L [place], [place] Comment on above: Non-preg premeno <=5 Postmeno <=8 Male <=3 If HCG results do not concur with clinical observations, additional testing to confirm results is recommended. Elevated results not associated with may be found in patients with other diseases such as tumors of the germ cells (testis, ovaries, etc.), bladder, pancreas, stomach, lungs, and liver. Interpretation and review of laboratory results Abnormal [place] HIV Screenon 06-19-2019 HIV Ag/Ab NONREACTIVE NONREACTIVE [place], [place] Comment on above: No laboratory eviden ce of HIV infection. If acute HIV infection is suspected, consider testing for HIV-1 RNA. Hepatitis C Antibodyon 06-19 Hepatitis C Ab REACTIVE Abnormal NONREACTIVE [facility] [place] Comment on above: The hepatitis C [...] Interpretation and review of laboratory results Abnormal [place] PROFILE Ion 019 Basophils (Bld) [#/Vol] 10*3/uL [place] Basophils/100 WBC (Bld) 1 % 0 - 2 % [place] Differential Type NOT REPORTED [place] Eosinophils (Bld) [#/Vol] 0.09 10*3/uL [place] Eosinophils/100 WBC (Bld) 2 % 1 - 4 % [place] Erythrocyte distribution width (RBC) [Ratio] 15.7 % High 11.8 - 14.4 % [place] Hematocrit (Bld) [Volume fraction] 36.5 % 36.3 - 47.1 % [place] Hemoglobin (Bld) [Mass/Vol] 11.2 g/dL Low 11.9 - 15.1 g/dL [place] Hepatitis B Surface Ag NONREACTIVE NONREACTIVE [place] Immature granulocytes (Bld) [#/Vol] 0 % 0 [place] Immature granulocytes (Bld) [#/Vol] 10*3/uL [place] Interpretation and review of laboratory results Abnormal [place] Lymphocytes (Bld) [#/Vol] 1.98 10*3/uL [place] Lymphocytes/100 WBC (Bld) 46 % High 24 - 43 % [place] MCH (RBC) [Entitic mass] 25.6 pg 25.2 - 33.5 pg [place] MCHC (RBC) [Mass/Vol] 30.7 g/dL 28.4 - 34.8 g/dL [place] MCV (RBC) [Entitic vol] 83.3 fL 82.6 - 102.9 fL [place] Monocytes (Bld) [#/Vol] 0.37 10*3/uL [place] Monocytes/100 WBC (Bld) 9 % 3 - 12 % [place] Platelet mean volume (Bld) [Entitic vol] 11.6 fL 8.1 - 13.5 fL [place] Platelets (Bld) [#/Vol] NOT REPORTED [place] Platelets (Bld) [#/Vol] 196 10*3/uL [place] RBC (Bld) [#/Vol] 4.38 10*6/uL 3.95 - 5.1 1 m/uL [place] RBC morphology finding Nom (Bld) NOT REPORTED [place] Rubella virus IgG Ql (S) 286.1 IU/mL [place] Comment on above: REFERENCE RANGE: <5.0 NON-REACTIVE (non-immune) 5.0 TO 9.9 EQUIVOCAL >=10.0 REACTIVE (immune) Segmented neutrophils/100 WBC (Bld) 42 % 36 - 65 % [place] Segs Absolute 1.75 [place] T. pallidum, IgG NONREACTIVE NONREACTIVE [place] Comment on above: T. pallidum antibodies are not detected. There is no serological evidence of infection with T. pallidum (early primary syphilis cannot be excluded). Retest in 2-4 weeks if syphilis is clinically suspect. WBC (Bld) [#/Vol] 4.2 10*3/uL [place] WBC (Bld) [#/Vol] 0.0 10*3/uL 0.0 per 100 WBC [place] WBC Morphology NOT REPORTED [place], [place] TYPE AND SCREENon 1 ABO/Rh Positive [place] Profileon 9 Abs. Basophil <0.03 Normal 0.00-0.20 [facility] Comment on above: Performed By: #### P RENAT #### [address] [address] Ticket Sales Supervisor: Dom Fowler MD [address] [place] [phone] Ticket Sales Supervisor: Shakeel Graham MD Abs.Imm.Granulocyte <0.03 Normal 0.00-0.30 [facility] Comment on above: Performed By: #### P RENAT #### [address] [address] Ticket Sales Supervisor: Dom Fowler MD [address] [place] [phone] Ticket Sales Supervisor: Shakeel Graham MD Abs.Neutrophil (Seg) 1.75 k/uL Normal 1.50-8.10 [facility] Comment on above: Performed By: #### P RENAT #### [address] [address] Ticket Sales Supervisor: Dom Fowler MD [address] [place] [phone] Ticket Sales Supervisor: Shakeel Graham MD Basophils/100 WBC (Bld) 1 % Normal 0-2 [facility] Comment on above: Performed By: #### P RENAT #### [address] [address] Ticket Sales Supervisor: Dom Fowler MD [address] Felix [facility]83 Ticket Sales Supervisor: Shakeel Graham MD Eosinophils (Bld) [#/Vol] 0.09 10*3/uL Normal 0.00-0.44 [facility] Comment on above: Performed By: #### P RENAT #### [address] [address] Ticket Sales Supervisor: Dom Fowler MD [address] [place] [phone] Ticket Sales Supervisor: Shakeel Graham MD Eosinophils/100 WBC (Bld) 2 % Normal 1-4 [facility] Comment on above: Performed By: #### P RENAT #### [address] [address] Ticket Sales Supervisor: Dom Fowler MD [address] [place] [phone] Ticket Sales Supervisor: Shakeel Graham MD Erythrocyte distribution width (RBC) [Ratio] 15.7 % High 11.8-14.4 [facility] Comment on above: Performed By: #### P RENAT #### [address] [address] Ticket Sales Supervisor: Dom Fowler MD [address] [place] [phone] Ticket Sales Supervisor: Shakeel Graham MD Hematocrit (Bld) [Volume fraction] 36.5 % Normal 36.3-47.1 [facility] Comment on above: Performed By: #### P RENAT #### [address] [address] Ticket Sales Supervisor: Dom Fowler MD [address] [place] [phone] Ticket Sales Supervisor: Shakeel Graham MD Hemoglobin (Bld) [Mass/Vol] 11.2 g/dL Low 11.9-15.1 [facility] Comment on above: Performed By: #### P RENAT #### [address] [place] [address] Ticket Sales Supervisor: Dom Fowler MD [facility] [address] [place] [address] Dr. [place] [phone] Ticket Sales Supervisor: Shaekel Graham MD Immature granulocytes (Bld) [#/Vol] 0 % Normal 0 [facility] Comment on above: Performed By: #### P RENAT #### [address] [address] Ticket Sales Supervisor: Dom Fowler MD [facility] [address] [place] [address] Dr. [place] [phone] Ticket Sales Supervisor: Shakeel Graham MD Lymphocytes (Bld) [#/Vol] 1.98 10*3/uL Normal 1.10-3.70 [facility] Comment on above: Performed By: #### P RENAT #### [address] [address] Ticket Sales Supervisor: Dom Fowler MD [address] [place] [address] Ticket Sales Supervisor: Shakeel Graham MD Lymphocytes/100 WBC (Bld) 46 % High 24-43 [facility] Comment on above: Performed By: #### P RENAT #### [address] [address] Ticket Sales Supervisor: Dom Fowler MD [facility] [address] [place] [address] [place] [phone] Ticket Sales Supervisor: Shakeel Graham MD MCH (RBC) [Entitic mass] 25.6 pg Normal 25.2-33.5 [facility] Comment on above: Performed By: #### P RENAT #### [address] [address] Ticket Sales Supervisor: Dom Fowler MD [address] [place], [place] 0424583 Ticket Sales Supervisor: Shakeel Graham MD MCHC (RBC) [Mass/Vol] 30.7 g/dL Normal 28.4-34.8 [facility] Comment on above: Performed By: #### P RENAT #### [address] [address] Ticket Sales Supervisor: Dom Fowler MD [address] [place] [phone] Ticket Sales Supervisor: Shakeel Graham MD MCV (RBC) [Entitic vol] 83.3 fL Normal 82.6-102.9 [facility] Comment on above: Performed By: #### P RENAT #### [address] [address] Ticket Sales Supervisor: Dom Fowler MD [address] [place] [phone] Ticket Sales Supervisor: Shakeel Graham MD Monocytes (Bld) [#/Vol] 0.37 10*3/uL Normal 0.10-1.20 [facility] Comment on above: Performed By: #### P RENAT #### [address] [address] Ticket Sales Supervisor: Dom Fowler MD [address] [place] [address] Ticket Sales Supervisor: Shakeel Graham MD Monocytes/100 WBC (Bld) 9 % Normal 3-12 [facility] Comment on above: Performed By: #### P RENAT #### [address] [address] Ticket Sales Supervisor: Dom Fowler MD [address] [place] [phone] Ticket Sales Supervisor: Shakeel Graham MD Neutrophil (Seg) 42 % Normal 36-65 [facility] Comment on above: Performed By: #### P RENAT #### [address] [place] [address] Ticket Sales Supervisor: Dom Fowler MD [address] [place] [phone] Ticket Sales Supervisor: Shakeel Graham MD NRBC Automated 0.0 per 100 WBC Normal 0.0 [facility] Comment on above: Performed By: #### P RENAT #### [address] [address] Ticket Sales Supervisor: Dom Fowler MD [address] Felix [facility]83 Ticket Sales Supervisor: Shakeel Graham MD Platelet mean volume (Bld) [Entitic vol] 11.6 fL Normal 8.1-13.5 [facility] Comment on above: Performed By: #### P RENAT #### [address] [address] Ticket Sales Supervisor: Dom Fowler MD [address] [place] [phone] Ticket Sales Supervisor: Shakeel Graham MD Platelets (Bld) [#/Vol] 196 10*3/uL Normal 138-453 [facility] Comment on above: Performed By: #### P RENAT #### [address] [address] Ticket Sales Supervisor: Dmo Fowler MD [address] [place] [phone] Ticket Sales Supervisor: Shakeel Graham MD RBC (Bld) [#/Vol] 4.38 10*6/uL Normal 3.95-5.11 [facility] Comment on above: Performed By: #### P RENAT #### [address] [address] Ticket Sales Supervisor: Dom Fowler MD [address] [place] [address] Ticket Sales Supervisor: Shakeel Graham MD WBC (Bld) [#/Vol] 4.2 10*3/uL Normal 3.5-11.3 [facility] Comment on above: Performed By: #### P RENAT #### [address] [address] Ticket Sales Supervisor: Dom Fowler MD [address] [place] [address] Ticket Sales Supervisor: Shakeel Graham MD Auto Diff Performed NOT REPORTED Normal [facility] Comment on above: Performed By: #### P RENAT #### [address] [address] Ticket Sales Supervisor: Dom Fowler MD [address] [place] [address] Ticket Sales Supervisor: Shakeel Graham MD Platelets (Bld) [#/Vol] NOT REPORTED Normal [facility] Comment on above: Performed By: #### P RENAT #### [address] [address] Ticket Sales Supervisor: Dom Fowler MD [address] [place] [address] Ticket Sales Supervisor: Shakeel Graham MD RBC morphology finding Nom (Bld) NOT REPORTED Normal [facility] Comment on above: Performed By: #### P RENAT #### [address] [address] Ticket Sales Supervisor: Dom Fowler MD [address] [place] [address] Ticket Sales Supervisor: Shakeel Graham MD WBC Morphology NOT REPORTED Normal [facility] Comment on above: Performed By: #### P RENAT #### [address] [address] Ticket Sales Supervisor: Dom Fowler MD [address] [place] [phone] Ticket Sales Supervisor: Shakeel Graham MD Type + Scrnon 06-19 Type + Scrn Negative [facility] Comment on above: Performed By: #### P RTYS #### [facility] [address] [place], [place] 4222583 Ticket Sales Supervisor: Shakeel Graham MD Toxicology Scree, Urineon Amphetamine(s),Ur Negative Normal NEG [facility] Comment on above: Performed By: #### C PDAU #### [facility] [address] [place], [place] 4468683 Ticket Sales Supervisor: Shakeel Graham MD Barbiturate(s),Ur Negative Normal NEG [facility] Comment on above: Performed By: #### C PDAU #### [facility] [address] [place], [facility]83 Ticket Sales Supervisor: Shakeel Graham MD Benzodiazepine(s) Negative Normal [facility] Comment on above: Performed By: #### C PDAU #### [facility] [address] [place] [phone] Ticket Sales Supervisor: Shakeel Graham MD Buprenorphrine, Ur Negative Normal [facility] Comment on above: Performed By: #### C PDAU #### [facility] [address] [place], [facility]83 Ticket Sales Supervisor: Shakeel Graham MD Cannabinoid(s),Ur Negative Normal NEG [facility] Comment on above: Performed By: #### C PDAU #### [facility] [address] [place], [place] 9664183 Ticket Sales Supervisor: Shakeel Graham MD Cocaine Metabolite Negative Normal [facility] Comment on above: Performed By: #### C PDAU #### [facility] [address] [place], [place] 7532183 Ticket Sales Supervisor: Shakeel Graham MD Methadone Ql (U) Negative Normal NEG [facility] Comment on above: Performed By: #### C PDAU #### [facility] [address] [place], [place] 3089683 Ticket Sales Supervisor: Shakeel Graham MD Methamphetamine, Ur Negative Normal NEG [facility] Comment on above: Performed By: #### C PDAU #### [facility] [address] [place], [place] 5680483 Ticket Sales Supervisor: Shakeel Graham MD Opiate(s), Ur Negative Normal NEG [facility] Comment on above: Performed By: #### C PDAU #### [facility] [address] [place] [address] Ticket Sales Supervisor: Shakeel Graham MD Oxycodone, Urine Negative Normal NEG [facility] Comment on above: Performed By: #### C PDAU #### [facility] [address] [place], [place] 0681683 Ticket Sales Supervisor: Shakeel Graham MD Phencyclidine, Ur Negative Normal [facility] Comment on above: Performed By: #### C PDAU #### [facility] [address] [place], [place] 4470883 Ticket Sales Supervisor: Shakeel Graham MD Propoxyphene,Urine Negative Normal NEG [facility] Comment on above: Performed By: #### C PDAU #### [facility] [address] [place], [place] [phone] Ticket Sales Supervisor: Shakeel Graham MD Tricyclic antidepressants Screen Ql (U) Positive Abnormal NEG [facility] Comment on above: Result Comment: Drug screen results are to be used for medical purposes only. All positive results are unconfirmed. Testing for employment or legal uses should be sent to a reference laboratory for confirmation. Performed By: #### C PDAU #### [facility] [address] [place] [address] Ticket Sales Supervisor: Shakeel Graham MD Interpretive Info NOT REPORTED Normal [facility] Comment on above: Performed By: #### C PDAU #### [facility] [address] [place] [address] Ticket Sales Supervisor: Shakeel Graham MD MDMA, Urine NOT REPORTED Normal NEG [facility] Comment on above: Performed By: #### C PDAU #### [facility] [address] [place] [address] Ticket Sales Supervisor: Shakeel Graham MD Urine Drug Screen, [...] Ag/Abon 05-10-2019 HIV Ag/Ab NONREACTIVE Normal NR [facility] Comment on above: Result Comment: No l aboratory evidence of HIV infection. If acute HIV infection is suspected, consider testing for HIV-1 RNA. Performed By: #### H IVCMB, PHEP #### [facility] [employer] [facility] [place] [address] Ticket Sales Supervisor: Dom Fowler MD #### CP #### [facility] [address] [place], [place] 8044983 Ticket Sales Supervisor: Shakeel Graham MD Hepatitis Acute [facility] 05-10 Hep A Ab,IgM NONREACTIVE Normal NR [facility] Comment on above: Performed By: #### H IVCMB, PHEP #### [address] [address] Ticket Sales Supervisor: Dom Fowler MD #### CP #### [address] [place] [address] Ticket Sales Supervisor: Shakeel Graham MD Hep B Core Ab,IgM NONREACTIVE Normal [facility] Comment on above: Performed By: #### H IVCMB, PHEP #### [address] [address] Ticket Sales Supervisor: Dom Fowler MD #### CP #### [facility] [address] [place] [address] [place], [place] 9119783 Ticket Sales Supervisor: Shakeel Graham MD Hep B Surf Ag NONREACTIVE Normal [facility] Comment on above: Performed By: #### H IVCMB, PHEP #### [address] [address] Ticket Sales Supervisor: Dom Fowler MD #### CP #### [facility] [address] [place] [address] [place], [place] [phone] Ticket Sales Supervisor: Shakeel Graham MD Hep C Ab REACTIVE Abnormal [facility] Comment on above: Result Comment: The hepatitis [...] Performed By: #### H IVCMB, PHEP #### [address] [place] [address] Ticket Sales Supervisor: Dom Fowler MD #### CP #### [facility] [address] [place] [address] [place], [place] [phone] Ticket Sales Supervisor: Shakeel Graham MD Comp Metabolic Profon 2018 (cont.) Normal [facility] Comment on above: Result Comment: Aver age GFR for 20-29 years old: 116 mL/min/1.73sq m Chronic Kidney Disease: <60 mL/min/1.73sq m Kidney failure: <15 mL/min/1.73sq m eGFR calculated using average adult body mass. Additional eGFR calculator available at: http://[email or web address]_crcl_2011.htm Performed By: #### H IVCMB, PHEP #### [address] [address] Ticket Sales Supervisor: Dom Fowler MD #### CP #### [facility] [address] [place] [address] [place], [place] 8348583 Ticket Sales Supervisor: Shakeel Graham MD Albumin [Mass/Vol] 4.3 g/dL Normal 3.5-5.2 [facility] Comment on above: Performed By: #### H IVCMB, PHEP #### [address] [address] Ticket Sales Supervisor: Dom Fowler MD #### CP #### [address] [place], [place] 7400583 Ticket Sales Supervisor: Shakeel Graham MD Albumin/Globulin [Mass ratio] 1.4 {ratio} Normal 1.0-2.5 [facility] Comment on above: Performed By: #### H IVCMB, PHEP #### [address] [address] Ticket Sales Supervisor: Dom Fowler MD #### CP #### [facility] [address] [place], [place] 9336283 Ticket Sales Supervisor: Shakeel Graham MD Alkaline Phos 50 U/L Normal 35-104 [facility] Comment on above: Performed By: #### H IVCMB, PHEP #### [address] [address] Ticket Sales Supervisor: Dom Fowler MD #### CP #### [facility] [address] [place] [address] Dr. [place], [place] [id number] Ticket Sales Supervisor: Shakeel Graham MD ALT [Catalytic activity/Vol] 9 U/L Normal 5-33 [facility] Comment on above: Performed By: #### H IVCMB, PHEP #### [address] [address] Ticket Sales Supervisor: Dom Fowler MD #### CP #### [address] [place], [place] [id number] Ticket Sales Supervisor: Shakeel Graham MD Anion gap [Moles/Vol] 8 mmol/L Low 9-17 [facility] Comment on above: Performed By: #### H IVCMB, PHEP #### [address] [address] Ticket Sales Supervisor: Dom Fowler MD #### CP #### [address] [place], [place] [id number] Ticket Sales Supervisor: Shakeel Graham MD AST [Catalytic activity/Vol] 15 U/L Normal <32 [facility] Comment on above: Performed By: #### H IVCMB, PHEP #### [address] [address] Ticket Sales Supervisor: Dom Fowler MD #### CP #### [address] [place], [place] [id number] Ticket Sales Supervisor: Shakeel Graham MD Bilirubin Ql (U) 0.31 mg/dL Normal 0.3-1.2 [facility] Comment on above: Performed By: #### H IVCMB, PHEP #### [facility] [address] [place] [address] Ticket Sales Supervisor: Dom Fowler MD #### CP #### [facility] [address] [place], [place] [phone] Ticket Sales Supervisor: Shakeel Graham MD BUN/CRE Ratio 20 Normal 9-20 [facility] Comment on above: Performed By: #### H IVCMB, PHEP #### [address] [address] Ticket Sales Supervisor: Dom Fowler MD #### CP #### [facility] [address] [place], [place] [phone] Ticket Sales Supervisor: Shakeel Graham MD Calcium [Mass/Vol] 9.4 mg/dL Normal 8.6-10.4 [facility] Comment on above: Performed By: #### H IVCMB, PHEP #### [address] [address] Ticket Sales Supervisor: Dom Fowler MD #### CP #### [facility] [address] [place] [address] Dr. [place], [place] [phone] Ticket Sales Supervisor: Shakeel Graham MD Chloride [Moles/Vol] 102 mmol/L Normal 98-107 [facility] Comment on above: Performed By: #### H IVCMB, PHEP #### [address] [address] Ticket Sales Supervisor: Dom Fowler MD #### CP #### [facility] [address] [place], [place] [phone] Ticket Sales Supervisor: Shakeel Graham MD CO2 [Moles/Vol] 28 mmol/L Normal 20-31 [facility] Comment on above: Performed By: #### H IVCMB, PHEP #### [address] [address] Ticket Sales Supervisor: Dom Fowler MD #### CP #### [facility] [address] [place], [place] [id number] Ticket Sales Supervisor: Shakeel Graham MD Creatinine [Mass/Vol] 0.92 mg/dL High 0.50-0.90 [facility] Comment on above: Performed By: #### H IVCMB, PHEP #### [address] [address] Ticket Sales Supervisor: Dom Fowler MD #### CP #### [address] [place] [address] Ticket Sales Supervisor: Shakeel Graham MD GFR, Amer >60 Normal >60 [facility] Comment on above: Performed By: #### H IVCMB, PHEP #### [address] [address] Ticket Sales Supervisor: Dom Fowler MD #### CP #### [facility] [address] [place] [address] Dr. [place], [place] [phone] Ticket Sales Supervisor: Shakeel Graham MD GFR,non Amer >60 Normal >60 [facility] Comment on above: Performed By: #### H IVCMB, PHEP #### [address] [address] Ticket Sales Supervisor: Dom Fowler MD #### CP #### [facility] [address] [place], [place] [phone] Ticket Sales Supervisor: Shakeel Graham MD Glucose [Mass/Vol] 91 mg/dL Normal 70-99 [facility] Comment on above: Performed By: #### H IVCMB, PHEP #### [address] [address] Ticket Sales Supervisor: Dom Fowler MD #### CP #### [facility] [address] [place] [address] [address]. [place], [place] [phone] Ticket Sales Supervisor: Shakeel Graham MD Potassium [Moles/Vol] 4.3 mmol/L Normal 3.7-5.3 [facility] Comment on above: Performed By: #### H IVCMB, PHEP #### [address] [address] Ticket Sales Supervisor: Dom Fowler MD #### CP #### [address] [place], [place] [phone] Ticket Sales Supervisor: Shakeel Graham MD Protein [Mass/Vol] 7.4 g/dL Normal 6.4-8.3 [facility] Comment on above: Performed By: #### H IVCMB, PHEP #### [address] [address] Ticket Sales Supervisor: Dom Fowler MD #### CP #### [address] [place], [place] 4819883 Ticket Sales Supervisor: Shakeel Graham MD Sodium [Moles/Vol] 138 mmol/L Normal 135-144 [facility] Comment on above: Performed By: #### H IVCMB, PHEP #### [address] [address] Ticket Sales Supervisor: Dom Fowler MD #### CP #### [address] [place], [place] [phone] Ticket Sales Supervisor: Shakeel Graham MD Staging: Normal [facility] Comment on above: Result Comment: Stag e 1: Some kidney damage normal GFR Stage 2: Mild kidney damage GFR 60-89 Stage 3: Moderate kidney damage GFR 30-59 Stage 4: Severe kidney damage GFR 15-29 Stage 5: Severe kidney damage GFR <15 ESRD - chronic treatment by dialysis or transplant Performed By: #### H IVCMB, PHEP #### [address] [phone] Ticket Sales Supervisor: Dom Fowler MD #### CP #### [facility] [address] [place] [address] Ticket Sales Supervisor: Shakeel Graham MD Urea nitrogen [Mass/Vol] 18 mg/dL Normal 6-20 [facility] Comment on above: Performed By: #### H IVC, PHEP #### [facility] [address] [place], [place] [phone] Ticket Sales Supervisor: Dom Fowler MD #### CP #### [facility] [address] [place] [address] Ticket Sales Supervisor: Shakeel Graham MD [facility] Metabolic Pane [facility] 05-09-2019 Albumin [Mass/Vol] 4.3 g/dL 3.5 - 5.2 g/dL [place], [place] Albumin/Globulin [Mass ratio] 1.4 {ratio} [place], [place] ALP [Catalytic activity/Vol] 50 U/L 35 - 104 U/L [place] ALT [Catalytic activity/Vol] 9 U/L 5 - 33 U/L [place] Anion gap [Moles/Vol] 8 mmol/L Low 9 - 17 mmol/L [place] AST [Catalytic activity/Vol] 15 U/L <32 [place] Bilirubin Ql (U) 0.31 mg/dL 0.3 - 1.2 mg/dL [place], [place] Bun/Cre Ratio 20 [place] Calcium [Mass/Vol] 9.4 mg/dL 8.6 - 10. 4 mg/dL [place] Chloride [Moles/Vol] 102 mmol/L 98 - 107 mmol/L [place] CO2 [Moles/Vol] 28 mmol/L 20 - 31 mmol/L [place] Creatinine [Mass/Vol] 0.92 mg/dL High 0.5 - 0.9 mg/dL [place] GFR >60 >60 mL/min [place] GFR Non- >60 >60 mL/min [place] Glucose [Mass/Vol] 91 mg/dL 70 - 99 mg/dL [place], [place] Interpretation and review of laboratory results Abnormal [place] Potassium [Moles/Vol] 4.3 mmol/L 3.7 - 5.3 mmol/L [place] Protein [Mass/Vol] 7.4 g/dL 6.4 - 8.3 g/dL [place] Sodium [Moles/Vol] 138 mmol/L 135 - 144 mmol/L [place] Urea nitrogen [Mass/Vol] 18 mg/dL 6 - 20 mg/dL [place] Hepatitis Panel, Acuteon HAV IgM IA Qn (S) NONREACTIVE NONREACTIVE [place] Hep B Core Ab, IgM NONREACTIVE NONREACTIVE [place] Hepatitis B Surface Ag NONREACTIVE NONREACTIVE [place] Hepatitis C Ab REACTIVE Abnormal NONREACTIVE [place], [place] Comment on above: The hepatitis C [...] Interpretation and review of laboratory results Abnormal [place] Metabolic Panelon 05-09-2019 GFR/1.73 sq M predicted among non-blacks MDRD (S/P/Bld) [Vol rate/Area] [place] Comment on above: Average GFR for 20-2 9 years old: 116 mL/min/1.73sq m Chronic Kidney Disease: <60 mL/min/1.73sq m Kidney failure: <15 mL/min/1.73sq m eGFR calculated using average adult body mass. Additional eGFR calculator available at: http://www.[employer]/multiple_crcl_2012.htm Stage 1: Some kidney damage normal GFR Stage 2: Mild kidney damage GFR 60-89 Stage 3: Moderate kidney damage GFR 30-59 Stage 4: Severe kidney damage GFR 15-29 Stage 5: Severe kidney damage GFR <15 ESRD - chronic treatment by dialysis or transplant Drug Scr, Abuse, Uron 2017 Amphetamine(s),Ur Positive Abnormal NEG [facility] Comment on above: Result Comment: (Pos itive cutoff 1000 ng/mL) Performed By: #### D AU ####[address] [address] Barbiturate(s),Ur Negative Normal NEG [facility] Comment on above: Result Comment: (Pos itive cutoff 200 ng/mL) Performed By: #### D AU ####[address] [address] Base excess Negative Normal NEG [facility] Comment on above: Result Comment: (Pos itive cutoff 300 ng/mL) Performed By: #### D AU ####[address] [address] Benzodiazepine(s) Negative Normal NEG [facility] Comment on above: Result Comment: (Pos itive cutoff 200 ng/mL) Performed By: #### D AU ####[address] [address] Cannabinoid(s),Ur Negative Normal NEG [facility] Comment on above: Result Comment: (Pos itive cutoff 50 ng/mL) Performed By: #### D AU ####[address] [address] Interpretive Info Assay provides medical screening only. The absence of expected drug(s) and/or Normal [facility] Comment on above: Result Comment: meta bolite(s) may indicate diluted or adulterated urine, limitations of testing or timing of collection.Testing for legal purposes should be confirmed by another method. To request confirmation of test result, please call the lab within 7 days of sample submission.Performed at [address] [address] Performed By: #### D AU ####[address] [address] Opiate(s), Ur Negative Normal NEG [facility] Comment on above: Result Comment: (Pos itive cutoff 300 ng/mL) Performed By: #### D AU ####[address] [address] Oxycodone, Urine Negative Normal NEG [facility] Comment on above: Result Comment: (Pos itive cutoff 100 ng/mL) Performed By: #### D AU ####[address] [address] Phencyclidine, Ur Negative Normal NEG [facility] Comment on above: Result Comment: (Pos itive cutoff 25 ng/mL) Performed By: #### D AU ####[address] [address] Urine, methadone presence Negative Normal NEG [facility] Comment on above: Result Comment: (Pos itive cutoff 300 ng/mL) Performed By: #### D AU ####[address] [address] Buprenorphrine, Ur NOT REPORTED Normal NEG [facility] Comment on above: Performed By: #### D AU ####[address] [place] [address] MDMA, Urine NOT REPORTED Normal NEG [facility] Comment on above: Performed By: #### D AU ####[address] [place] [address] Methamphetamine, Ur NOT REPORTED Normal NEG [facility] Comment on above: Performed By: #### D AU ####[address] [address] Propoxyphene,Urine NOT REPORTED Normal NEG [facility] Comment on above: Performed By: #### D AU ####[facility] [place] [address] Urine, tricyclic antidepressants NOT REPORTED Normal NEG [facility] Comment on above: Performed By: #### D AU ####[address] [address] Lipid Profileon 11-05-2017 Cholesterol 137 mg/dL Normal <200 [facility] Comment on above: Result Comment: Chol esterol Guidelines: <200 Desirable 200-240 Borderline >240 Undesirable Performed By: #### L IPR ####[address] [address] Cholesterol to HDL Ratio 4.3 {ratio} Normal <5 [facility] Comment on above: Performed By: #### L IPR ####[facility] [place] [address] HDL Cholesterol 32 mg/dL Low >40 [facility] Comment on above: Result Comment: HDL Guidelines: <40 Undesirable 40-59 Borderline >59 Desirable Performed By: #### L IPR ####[address] [address] LDL Cholesterol 82 mg/dL Normal 0-130 [facility] Comment on above: Result Comment: LDL Guidelines: <100 Desirable 100-129 Near to/above Desirable 130-159 Borderline >159 UndesirableDirect (measured) LDL and calculated LDL are not interchangeable tests. Performed By: #### L IPR ####[address] [address] Triglyceride 113 mg/dL Normal <150 [facility] Comment on above: Result Comment: Trig lyceride Guidelines: <150 Desirable 150- 199 Borderline 200-499 High >499 Very high Based on AHA Guidelines for fasting triglyceride, June 2012.Performed at [facility] [address] [place] [address] Performed By: #### L IPR ####[facility] [place] [address] Cholesterol in VLDL mass conc NOT REPORTED Normal 10-16 [facility] Comment on above: Performed By: #### L IPR ####[facility] [place] [address] Encounters Encounter Date Encounter Type Care Provider Facility Start: 09-05-2023 End: 09-05-2023 ambulatory LUIS FELIPE HALL Not Available Start: 08-21-2023 End: 08-21-2023 ambulatory YOUSIF APARICIO Not Available Start: 08-01-2023 End: 08-01-2023 ambulatory LUIS FELIPE HALL Not Available Start: 12-21-2022 End: 12-21-2022 ambulatory IVAN CAMEJO . Facility:[facility] Start: 11-29-2022 End: 11-29-[address] RODO MENCHACA Facility:[facility] Start: 10-25-2022 [facility] Facility:[facility] Start: 10-11-2022 End: 10-11-[address] CHRISTINE SÁNCHEZ Facility:[facility] Start: 09-12-2022 End: 09-13-[address] YOUSIF APARICIO . Facility:[facility] Start: 08-19-2022 Encounter for preprocedural laboratory examination DR YOUSIF APARICIO . [facility] Start: 08-18-2022 End: 08-18-[address] YOUSIF APARICIO . Facility:[facility] Start: 08-16-2022 End: 08-17-[address] YOUSIF APARICIO . Facility:[facility] Start: 08-16-2022 End: 08-17-2022 Encounter for preprocedural laboratory examination DR YOUSIF APARICIO . Facility:[facility] Start: 08-14-2022 End: 08-15-2022 [facility] Facility:[facility] Start: 07-27-2022 End: 07-28-[address] YOUSIF APARICIO . Facility:[facility] Start: 07-09-2022 End: 07-09-[address] ELISEO HARDING Facility: Start: 12-12-2021 Telephone encounter King zee MD Work Phone: Hematology/Oncology Comment on above: Lab Orders Start: 10-28-2021 Chart abstracting King fleming MD Work Phone: Hematology/Oncology Start: 04-26-2020 End: 04-27-2020 Patient encounter procedure ANTHONY PABON [facility] Start: 04-26-2020 End: 04-26-2020 Subsequent hospital visit by physician Rochelle ALFRED [facility] Start: 03-16-2020 End: 03-17-2020 Emergency department patient visit [facility] Facility:[facility] Start: 11-20-2019 End: 11-21-2019 Patient encounter procedure [facility] Start: 11-20-2019 End: 11-20-2019 Subsequent hospital visit by physician Rochelle ALFRED Laboratory Comment on above: History of miscarria ge, currently ; Amenorrhea; Positive urine test; Encounter for supervision of normal in first trimester, unspecified ; Spotting in early Start: 06-19-2019 End: 06-20-2019 Patient encounter procedure [facility] Start: 06-19-2019 End: 06-19-2019 Subsequent hospital visit by physician Rochelle ALFRED Laboratory Comment on above: Amenorrhea; Positive urine test; Encounter for supervision of normal in first trimester, unspecified ; Spotting in early Start: 05-09-2019 End: 05-10-2019 Patient encounter procedure KADI DIXON [facility] Start: 05-09-2019 End: 05-09-2019 Subsequent hospital visit by physician Rochelle ALFRED Laboratory Start: 11-05-2017 End: 11-07-2017 Evaluation and management of inpatient ANGELO SPICER [facility] Procedures Date Procedure Procedure Detail Performing Clinician Start: 04-26-2020 Acute hepatitis panel D AWN DESTINY Start: 04-26-2020 Antibody hiv-1&hiv-2 single result KADI DESTINY Start: 04-26-2020 Blood count complete automated KADI DESTINY Start: 04-26-2020 Comprehensive metabo lic panel KADI DESTINY Start: 04-26-2020 Gonadotropin chorion ic qualitative KADI DESTINY Start: 04-26-2020 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 hepatitis 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 KADI DESTINY Start: 04-26-2020 Acute hepatitis [...] Start: 05-09-2019 Comprehensive metabo lic panel KADI DSETINY Start: 05-09-2019 Acute hepatitis panel D awn R Destiny Work Phone: Start: 05-09-2019 Comprehensive metabo lic panel Kadi R Destiny Work Phone: Start: 11-06-2017 DISCHARGE PATIENT LUIS E SPICER Start: 11-05-2017 URINE DRUG SCREEN LUIS E SPICER Start: 11-05-2017 NURSING COMMUNICATION S VIKA SPICER Start: 11-05-2017 Lipid panel ANGELO BARRIOS COLD ROLLING COORDINATOR Start: 11-05-2017 DIET GENERAL ANGELO COLD ROLLING COORDINATOR Start: 11-05-2017 FULL CODE ANGELO COLD ROLLING COORDINATOR Start: 11-05-2017 IP CONSULT TO HISTOR Y [...] deficiency anemia type Expected: 12/12/2021, Expires: 02/11/2022 [facility] Work Phone: Comment on above: Expected: 12/12/2021 , Expires: 02/11/2022 Start: 05-18-2021 Influenza vaccination INFLUENZA (#1) [facility] Start: 06-26-2020 Cervical cancer screen Cervical [facility] [place] Comment on above: Postponed from 01/11 (Not Indicated) Start: 06-26-2020 Screening for malign ant neoplasm of cervix Cervical cancer screen [place] Comment on above: Postponed from 01/11 (Not Indicated) Start: 05-18-2020 Influenza vaccination Flu vaccine (# 1) [place] Start: 11-21-2019 End: 11-21-2019 Ancillary Procedure 11/21/2019 Ancillary Procedure Obstetrics and Gynecology 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 Start: 05-18-2019 Influenza vaccination Flu vaccine (# 1) [place] Start: 2015 Cervical cancer screen Cervical canc er [place] Start: 2015 PAP TESTING PAP TESTING [facility] Start: 2013 DTaP/Tdap/Td vaccine (1 - Tdap) DTaP/Tdap/Td vaccine (1 - Tdap) [place] Start: 2013 Urine microalbumin profile DTAP,TDAP,TD (1 - Tdap) [facility] Start: 01-12-2012 HEPATITIS C SCREENING HEPATITIS C SC REENING [facility] Start: 01-12-2012 HIV SCREENING HIV SCREENING [facility] Start: 2009 HPV vaccine (1 - Fem larissa 3-dose series) HPV vaccine (1 - Female 3-dose series) [place] Start: 2007 Varicella Vaccine (1 of 2 - 13+ 2-dose series) Varicella Vaccine (1 of 2 - 13+ 2-dose series) [place] Start: 2006 Adult depression screening assessment DEPRESSION SCREENING [facility] Start: 2005 DTaP/Tdap/Td vaccine (1 - Tdap) DTaP/Tdap/Td vaccine (1 - Tdap) [place] Start: 2005 HPV vaccine (1 - 2-d ose series) HPV vaccine (1 - 2-dose series) [place] Start: 2005 HPV vaccine (1 - Fem larissa 2-dose series) HPV vaccine (1 - Female 2-dose series) [place] Start: 01-12-2000 Pneumococcal 0-64 ye ars Vaccine (1 of 1 - PPSV23) Pneumococcal 0-64 years Vaccine (1 of 1 - PPSV23) [place] Start: 1999 COVID-19 VACCINE (1) COVID-19 VACCIN E (1) [facility] Start: 1995 Varicella vaccine (1 of 2 - 2-dose childhood series) Varicella vaccine (1 of 2 - 2-dose childhood series) [place] End: 11-20-2019 Bacteria identified Cx Nom (U) Urine Culture Microbiology Routine Amenorrhea Positive urine test Encounter for supervision of normal in first trimester, unspecified 1 Occurrences starting 11/20/2019 until 11/20/2019 [place] Comment on above: 1 Occurrences starti ng 11/20/2019 until 11/20/2019 Bacteria identified Cx Nom (U) [place] End: 06-19-2019 Bacteria identified Cx Nom (U) Urine Culture Microbiology Routine Amenorrhea Positive urine test Encounter for supervision of normal in first trimester, unspecified 1 Occurrences starting 06/19/2019 until 06/19/2019 [place] Comment on above: 1 Occurrences starti ng 06/19/2019 until 06/19/2019 End: 11-20-2019 C.trachomatis N.gonorrhoeae DNA, Urine C.trachomatis N.gonorrhoeae DNA, Urine Microbiology Routine Amenorrhea Positive urine test Encounter for supervision of normal in first trimester, unspecified 1 Occurrences starting 11/20/2019 until 11/20/2019 [place] Comment on above: 1 Occurrences starti ng 11/20/2019 until 11/20/2019 C.trachomatis N.gonorrhoeae DNA, Urine [place] End: 06-19-2019 C.trachomatis N.gonorrhoeae DNA, Urine C.trachomatis N.gonorrhoeae DNA, Urine Microbiology Routine Amenorrhea Positive urine test Encounter for supervision of normal in first trimester, unspecified 1 Occurrences starting 06/19/2019 until 06/19/2019 [place] Comment on above: 1 Occurrences starti ng 06/19/2019 until 06/19/2019 End: 04-26-2020 Hepatitis C RNA, quantitative, PCR Hepatitis C RNA, quantitative, PCR Lab Routine Once for 1 Occurrences starting 04/26/2020 until 04/26/2020 [place] Comment on above: Once for 1 Occurrenc es starting 04/26/2020 until 04/26/2020 Hepatitis C RNA, quantitative, PCR Hepatitis C RNA, quantitative, PCR Lab Routine 04/26/2020 7:30 AM EDT [place] End: 05-09-2019 HIV Screen HIV Screen Lab Routine Once for 1 Occurrences starting 05/09/2019 until 05/09/2019 [place] Comment on above: Once for 1 Occurrenc es starting 05/09/2019 until 05/09/2019 HIV Screen HIV Screen Lab R outine 05/09/2019 2:53 PM EDT [facility] Routine Amenorrhea Positive urine test Encounter for supervision of normal in first trimester, unspecified 11/20/2019 12:26 PM EST [facility] Payers Date Payer Category Payer Medicaid [employer] [employer] [employer] [id number] 2020-Present [phone] [address] [place], [place] [id number] Medicaid [id number] 2020 Unknown 2016 Unknown [facility] xxxxxxxxxxxx 2016-Present [phone] [place] [id number] xxxxxxxxxxxx [id number] 1994 Unknown [id number] [id number] 1994 Unknown [id number] [id number]3 1994 Unknown [id number] 2.16.840.1.346441.3.579.2.173 1994 Unknown [id number] 2.16.840.1.017085.3.579.2.173 1994 Unknown [id number] 2.16.840.1.682339.3.579.2.173 1994 Unknown [id number] 2.16.840.1.627982.3.579.2.593 1994 Unknown [id number] 2.16840.1.027366.3.579.2.593 1994 Unknown [id number] 2.16.840.1.970371.3.579.2.593 1994 Unknown [id number] 2.16.840.1.655353.3.579.2.593 1994 Unknown [id number] 2.16.840.1.466624.3.579.2.593 1994 Unknown [id number] 2.16.840.1.351129.3.579.2.593 1994 Unknown [id number] 2.16.840.1.578948.3.579.2.593 1994 Unknown [id number] 2.16.840.1.901887.3.579.2.593 1994 Unknown [id number] 2.16.840.1.407139.3.579.2.593 1994 Unknown [id number] 2.16.840.1.017329.3.579.2.593 1994 Unknown [id number] 2.16.840.1.231653.3.579.2.125 9 1994 Unknown [id number] 2.16.840.1.717131.3.579.2.125 9 1994 Unknown [id number] 2.16.840.1.858771.3.579.2.125 9 1959 Unknown [id number] Social History Date Type Detail Facility Start: 11-05-2017 End: 10-28-2021 Tobacco smoking status NHIS Never smoker [facility] Start: 11-05-2017 End: 06-19-2019 Alcohol intake No [place] Start: 1994 Sex Assigned At Not on file [place] Start: 06-19-2019 End: 11-20-2019 Tobacco smoking status NHIS Current every day smoker [place] Start: 06-19-2019 End: 11-20-2019 Cigarettes smoked current (pack per day) - Reported [facility] Start: 11-20-2019 Alcohol intake Current non-dr edge gluer of alcohol (finding) [facility] Start: 05-01-2019 [facility] Start: 11-20-2019 End: 10-28-2021 Tobacco use and exposure Never used [facility] Start: 10-28-2021 End: 11-08-2021 Alcohol intake Ex-drinker (finding) [facility] Clinical Note 08-18-2022 Note Date & Type Note Facility 08-18-2022 Note OPERATIVE NOTE OPERATION DATE: 08/18/2022 PROCEDURE: Suction D AND C. PREOPERATIVE DIAGNOSIS: Missed . POSTOPERATIVE DIAGNOSIS: Missed . ANESTHESIA: General. SURGEON: Yousfi Aparciio D.O. STORE PROMOTER: None. BLOOD LOSS: 75 mL. URINE OUTPUT: [...] products of conception were removed using a 10-Tunisian suction curette. Excellent hemostasis was noted. The patient tolerated the procedure well. Sponge, lap, and needle counts were correct x 2. All instruments were then removed from the patient's vagina. The patient was taken to the Recovery Room in stable condition. ?? [facility] Note 12-12-2021 Telephone Encounter - Angelia Almazan - 12/12/2021 11:16 AM EDT Note Date & Type Note Facility 12-12-2021 Miscellaneous Notes Pleases sign pending new cbc order. Thanks, Angelia Almazan MA documented in this encounter [facility] Progress note 11-08-2021 Note Date & Type Note Facility 11-08-2021 Note HNO ID: [id number] Author: King Suazo MD Service: ? Author [...] shortness of breath, and is seen at [place] emergency room. Labs revealed a hemoglobin of [...] biceps/brachioradial/patella/achilles. MUSCULOSKELETAL: Neg (more content not included)... 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 DATE CREATED AUTHOR AUTHOR'S ORGANIZ ATION 09/07/2023 [facility] EPIC Source Comments (unrecognize d section and content) In the event this informatio n is protected by the Federal Confidentiality of Alcohol and Drug Abuse Patient Records regulations: The Federal rules restrict any use of the information to criminally investigate or prosecute any alcohol or drug abuse patient.[facility] the event this information is protected by the Federal Confidentiality of Alcohol and Drug Abuse Patient Records regulations: The Federal rules restrict any use of the information to criminally investigate or prosecute any alcohol or drug abuse patient.[facility] Reason for Visit (unrecogniz ed section and content) Reason Comments Lab Orders Care Teams (unrecognized sec tion and content) 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 [facility] provides no warranty or guarantee of the accuracy or completeness of information in this document.
[2023-09-18 15:38] VITALS: BP 114/57; PULSE 99
[2023-09-18 15:39] VITALS: BP 115/55; PULSE 108
--- OUTSIDE RECORDS SUMMARY | 2023-09-25 07:36 | XMS_ITS | CCD ---
Author Name Unknown Address [id number] [place] [address] Organization [facility] Care Team Providers Care Electrotype Finisher Name Role Phone ANGELO SPICER Unavailable Unavailable LIGIA SPICEREEP Unavailable Unavailable ROCHELLE WILLAMS Unavailable Unavailable Rochelle Willams Primary Care Provider [phone] Lima Cornell Attending Unavailab le Rochelle Willams Primary Care Provider [phone] KADI DIXON Referring Unavailable ROCHELLE WILLAMS Primary Care Unavailable POOL, GEORGETTE E Referring Unavailable ROCHELLE WILLAMS Primary Care Unavailable POOL, GEORGETTE E Referring Unavailable ROCHELLE WILLAMS Primary Care Unavailable ANTHONY PABON Referring Unavailable ROCHELLE WILLAMS Primary Care Unavailable Unavailable Primary Care Provider UnavailRodo Carson Primary Care Provider [phone] [facility] Primary Care Unavaila ble [...] Unavailable NADERER, DR RODO Dickerson Admitting Unavailable [facility] Primary Care Unavaila ble GRECHNY ., ADELITA ORELLANA Consulting Unavailluis CAMARILLO, MYLES Alex Consulting Unavailable GAYE, GURU Consulting Unavailable ALFREDDOYOSEPH, ALIX Consulting Unavailable LINA, KAMILLA Consulting Unavailable SISTER, DANIELA Consulting Unavailable ROBBY ., DR MENENDEZ Consulting Unavailable [facility] Primary Care Unavaila ble ROBBY ., DR MENENDEZ Attending Unavailable ROBBY ., DR MENENDEZ Admitting Unavailable ELENITA, NGOC Consulting Unavailable GEMBUS, AUGUSTUS Consulting Unavailable [facility] Primary Care Unavaila ble ROBBY ., DR MENENDEZ Consulting Unavailable ROBBY ., DR MENENDEZ Attending Unavailable ROBBY ., DR MENENDEZ Admitting Unavailable ZIEBER, DR CHRISTINE Benites Consulting Unavailable ROBBY ., DR MENENDEZ Consulting Unavailable [facility] Primary Care Unavaila ble ROBBY ., [...] Propensity to adverse reactions to drug (disorder) [facility] Repository Medications Current Medications Medication Drug [...] Onset: 11-05-2017 Other aftercare (1 source) 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 Hemanth Kerr CBC AUTO DIFFon 11-29-2022 BASO # 0.0 103/ul Normal 0.0-0.1 [facility] Comment on above: Performed By: #### C BC #### [facility] [address] [address] [address] Hemanth Kerr Basophils/100 WBC (Bld) 0.7 % Normal 0.2-2.0 [facility] Comment on above: Performed By: #### C BC #### [facility] [address] [address] [address] Hemanth Kerr EO # 0.2 103/ul Normal 0.0-0.7 [facility] Comment on above: Performed By: #### C BC #### [facility] [address] [address] [address] Hemanth Kerr Eosinophils/100 WBC (Bld) 3.3 % Normal 0.9-7.0 [facility] Comment on above: Performed By: #### C BC #### [facility] [address] [place] [address] Dr. Hemanth Kerr Erythrocyte distribution width (RBC) [Ratio] 14.3 % Normal 11.0-15.0 [facility] Comment on above: Performed By: #### C BC #### [facility] [address] [place] [address] Dr. Hemanth Kerr Hematocrit (Bld) [Volume fraction] 37.2 % Normal 36.0-48.0 [facility] Comment on above: Performed By: #### C BC #### [facility] [address] [place] [address] Dr. Hemanth Kerr Hemoglobin (Bld) [Mass/Vol] 11.9 g/dL Critically low 12.0-16.0 [facility] Comment on above: Performed By: #### C BC #### [facility] [address] [place] [address] Dr. Hemanth eKrr IG # 0.01 10e3/ul Normal 0.00-0.03 [facility] Comment on above: Performed By: #### C BC #### [facility] [address] [address] [address] Hemanth Kerr IG % 0.2 % Normal 0.0-0.5 [facility] Comment on above: Performed By: #### C BC #### [facility] [address] [place] [address] Dr. Hemanth Kerr LYMPH # 1.7 103/ul Normal 1.2-3.8 [facility] Comment on above: Performed By: #### C BC #### [facility] [address] [place] [address] Dr. Hemanth Kerr Lymphocytes/100 WBC (Bld) 31.3 % Normal 20.5-60.0 [facility] Comment on above: Performed By: #### C BC #### [facility] [address] [place] [address] Dr. Hemanth Kerr MANUAL DIFF REQ NO Normal [facility] Comment on above: Performed By: #### C BC #### [facility] [address] [place] [address] Dr. Hemanth Kerr MCH (RBC) [Entitic mass] 27.8 pg Normal 26.7-34.0 [facility] Comment on above: Performed By: #### C BC #### [facility] [address] [place] [address] Dr. Hemanth Kerr MCHC (RBC) [Mass/Vol] 32.0 g/dL Normal 29.9-35.2 [facility] Comment on above: Performed By: #### C BC #### [facility] [address] [place] [address] Dr. Hemanth Kerr MCV (RBC) [Entitic vol] 86.9 fL Normal 81.0-99.0 [facility] Comment on above: Performed By: #### C BC #### [facility] [address] [place] [address] Dr. Hemanth Kerr MONO # 0.4 103/ul Normal 0.3-0.8 [facility] Comment on above: Performed By: #### C BC #### [facility] [address] [place] [address] Dr. Hemanth Kerr Monocytes/100 WBC (Bld) 8.0 % Normal 1.7-12.0 [facility] Comment on above: Performed By: #### C BC #### [facility] [address] [place] [address] Dr. Hemanth Kerr NEUT # 3.1 103/ul Normal 1.4-6.5 [facility] Comment on above: Performed By: #### C BC #### [facility] [address] [place] [address] Dr. Hemanth Kerr Neutrophils/100 WBC (Bld) 56.5 % Normal 43.0-75.0 [facility] Comment on above: Performed By: #### C BC #### [facility] [address] [place] [address] Dr. Hemanth Kerr Platelet mean volume (Bld) [Entitic vol] 10.3 fL Normal 9.5-13.5 [facility] Comment on above: Performed By: #### C BC #### [facility] [address] [place] [address] Dr. Hemanth Kerr PLT 258 103/ul Normal 150-450 [facility] Comment on above: Performed By: #### C BC #### [facility] [address] [place] [address] Dr. Hemanth Kerr RBC 4.28 106/ul Normal 4.20-5.40 [facility] Comment on above: Performed By: #### C BC #### [facility] [address] [place] [address] Dr. Hemanth Kerr WBC 5.4 103/ul Normal 4.0-11.0 [facility] Comment on above: Performed By: #### C BC #### [facility] [address] [place] [address] Dr. Hemanth Kerr PROF 14(COMP METB)on 023 Albumin [Mass/Vol] 3.1 g/dL Critically low 3.4-5.0 [facility] Comment on above: Performed By: #### C MP #### [facility] [address] [place] [address] Dr. Hemanth Kerr Albumin/Globulin [Mass ratio] 1.3 {ratio} Normal [facility] Comment on above: Performed By: #### C MP #### [facility] [address] [address] [address] Hemanth Kerr ALP [Catalytic activity/Vol] 56 U/L Normal 46-116 [facility] Comment on above: Performed By: #### C MP #### [facility] [address] [address] [address] Hemanth Kerr ALT [Catalytic activity/Vol] 34 U/L Normal 14-59 [facility] Comment on above: Performed By: #### C MP #### [facility] [address] [place] [address] Dr. Hemanth Kerr Anion gap [Moles/Vol] 7.0 mmol/L Normal [facility] Comment on above: Performed By: #### C MP #### [facility] [address] [place] [address] Dr. Hemanth Kerr AST [Catalytic activity/Vol] 29 U/L Normal 15-37 [facility] Comment on above: Performed By: #### C MP #### [facility] [address] [place] [address] Dr. Hemanth Kerr Bilirubin [Mass/Vol] 0.4 mg/dL Normal 0.2-1.0 [facility] Comment on above: Performed By: #### C MP #### [facility] [address] [place] [address] Dr. Hemanth Kerr Calcium [Mass/Vol] 8.3 mg/dL Critically low 8.5-10.1 Th [facility] Comment on above: Performed By: #### C MP #### [facility] [address] [place] [address] Dr. Hemanth Kerr Chloride [Moles/Vol] 110 mmol/L Critically high 98-107 [facility] Comment on above: Performed By: #### C MP #### [facility] [address] [place] [address] Dr. Hemanth Kerr CO2 [Moles/Vol] 27.6 mmol/L Normal 21.0-32.0 [facility] Comment on above: Performed By: #### C MP #### [facility] [address] [place] [address] Dr. Hemanth Kerr Creatinine [Mass/Vol] 0.61 mg/dL Normal 0.55-1.02 [facility] Comment on above: Performed By: #### C MP #### [facility] [address] [address] [address] Hemanth Kerr EGFR-AF [place] ISLANDER >60 Normal >=60 [facility] Comment on above: Performed By: #### C MP #### [facility] [address] [address] [address] Hemanth Kerr EGFR-NON AF [place]ER >60 Normal >=60 [facility] Comment on above: Performed By: #### C MP #### [facility] [address] [address] [address] Hemanth Kerr Globulin (S) [Mass/Vol] 2.4 g/dL Normal [facility] Comment on above: Performed By: #### C MP #### [facility] [address] [place] [address] Dr. Hemanth Kerr Glucose [Mass/Vol] 110 mg/dL Critically high 74-106 [facility] Comment on above: Performed By: #### C MP #### [facility] [address] [address] [address] Hemanth Kerr Potassium [Moles/Vol] 2.6 mmol/L Critically low 3.5-5.1 [facility] Comment on above: Performed By: #### C MP #### [facility] [address] [place] [address] Dr. Hemanth Kerr Protein [Mass/Vol] 5.5 g/dL Critically low 6.4-8.2 Th [facility] Comment on above: Performed By: #### C MP #### [facility] [address] [address] [address] Hemanth Kerr Sodium [Moles/Vol] 142 mmol/L Normal 136-145 [facility] Comment on above: Performed By: #### C MP #### [facility] [address] [place] [address] Dr. Hemanth Kerr Urea nitrogen [Mass/Vol] 12.0 mg/dL Normal 7.0-18.0 [facility] Comment on above: Performed By: #### C MP #### [facility] [address] [address] [address] Hemanth Kerr Urea nitrogen/Creatinine [Mass ratio] 19.7 mg/mg Normal [facility] Comment on above: Performed By: #### C MP #### [facility] [address] [address] [address] Hemanth Kerr XR HIP LT 2 [...] ALIX GRANADOS Date: 2022-11-28 22:13 Normal [facility] ACETAMINOPHENon 11-28-2022 Acetaminophen [Mass/Vol] ug/mL Critically low 10.0-30.0 [facility] Comment on above: Performed By: #### C MP #### [facility] [address] [address] [address] Hemanth Kerr ACETONE SERUMon 11-28-2022 ACETONE Negative Normal NEGATIVE [facility] Comment on above: Performed By: #### P REG #### [facility] [address] [address] [address] Hemanth Kerr AMMONIAon 11-28-2022 Ammonia (P) [Moles/Vol] 24 umol/L Normal 11-32 [facility] Comment on above: Performed By: #### L ACT #### [facility] [address] [address] [address] Hemanth Kerr CBC AUTO DIFFon 11-28-2022 BASO # 0.0 103/ul Normal 0.0-0.1 [facility] Comment on above: Performed By: #### L ACT #### [facility] [address] [address] [address] Hemanth Kerr Basophils/100 WBC (Bld) 0.4 % Normal 0.2-2.0 [facility] Comment on above: Performed By: #### L ACT #### [facility] [address] [place] [address] Dr. Hemanth Kerr EO # 0.3 103/ul Normal 0.0-0.7 [facility] Comment on above: Performed By: #### L ACT #### [facility] [address] [place] [address] Dr. Hemanth Kerr Eosinophils/100 WBC (Bld) 3.1 % Normal 0.9-7.0 [facility] Comment on above: Performed By: #### L ACT #### [facility] [address] [place] [address] Dr. Hemanth Kerr Erythrocyte distribution width (RBC) [Ratio] 14.3 % Normal 11.0-15.0 [facility] Comment on above: Performed By: #### L ACT #### [facility] [address] [place] [address] Dr. Hemanth Kerr Hematocrit (Bld) [Volume fraction] 41.3 % Normal 36.0-48.0 [facility] Comment on above: Performed By: #### L ACT #### [facility] [address] [place] [address] Dr. Hemanth Kerr Hemoglobin (Bld) [Mass/Vol] 13.3 g/dL Normal 12.0-16.0 [facility] Comment on above: Performed By: #### L ACT #### [facility] [address] [place] [address] Dr. Hemanth Kerr IG # 0.02 10e3/ul Normal 0.00-0.03 [facility] Comment on above: Performed By: #### L ACT #### [facility] [address] [place] [address] Dr. Hemanth Kerr IG % 0.2 % Normal 0.0-0.5 [facility] Comment on above: Performed By: #### L ACT #### [facility] [address] [place] [address] Dr. Hemanth Kerr LYMPH # 2.4 103/ul Normal 1.2-3.8 [facility] Comment on above: Performed By: #### L ACT #### [facility] [address] [place] [address] Dr. Hemanth Kerr Lymphocytes/100 WBC (Bld) 26.3 % Normal 20.5-60.0 [facility] Comment on above: Performed By: #### L ACT #### [facility] [address] [place] [address] Dr. Hemanth Kerr MANUAL DIFF REQ NO Normal [facility] Comment on above: Performed By: #### L ACT #### [facility] [address] [place] [address] Dr. Hemanth Kerr MCH (RBC) [Entitic mass] 27.4 pg Normal 26.7-34.0 [facility] Comment on above: Performed By: #### L ACT #### [facility] [address] [place] [address] Dr. Hemanth Kerr MCHC (RBC) [Mass/Vol] 32.2 g/dL Normal 29.9-35.2 [facility] Comment on above: Performed By: #### L ACT #### [facility] [address] [place] [address] Dr. Hemanth Kerr MCV (RBC) [Entitic vol] 85.0 fL Normal 81.0-99.0 [facility] Comment on above: Performed By: #### L ACT #### [facility] [address] [place] [address] Dr. Hemanth Kerr MONO # 0.7 103/ul Normal 0.3-0.8 [facility] Comment on above: Performed By: #### L ACT #### [facility] [address] [place] [address] Dr. Hemanth Kerr Monocytes/100 WBC (Bld) 7.3 % Normal 1.7-12.0 [facility] Comment on above: Performed By: #### L ACT #### [facility] [address] [place] [address] Dr. Hemanth Kerr NEUT # 5.7 103/ul Normal 1.4-6.5 [facility] Comment on above: Performed By: #### L ACT #### [facility] [address] [address] [address] Hemanth Kerr Neutrophils/100 WBC (Bld) 62.7 % Normal 43.0-75.0 [facility] Comment on above: Performed By: #### L ACT #### [facility] [address] [address] [address] Hemanth Kerr Platelet mean volume (Bld) [Entitic vol] 10.6 fL Normal 9.5-13.5 [facility] Comment on above: Performed By: #### L ACT #### [facility] [address] [place] [address] Dr. Hemanth Kerr PLT 347 103/ul Normal 150-450 [facility] Comment on above: Performed By: #### L ACT #### [facility] [address] [place] [address] Dr. Hemanth Kerr RBC 4.86 106/ul Normal 4.20-5.40 [facility] Comment on above: Performed By: #### L ACT #### [facility] [address] [place] [address] Dr. Hemanth Kerr WBC 9.1 103/ul Normal 4.0-11.0 [facility] Comment on above: Performed By: #### L ACT #### [facility] [address] [place] [address] CSPINE WO CONon [...] KAMILLA MILLS Date: 2022-11-28 17:54 Normal [facility] CT HEAD WO CONon 11-28-2022 CT [...] KAMILLA MILLS Date: 2022-11-28 18:40 Normal [facility] CULTURE BLOODon 11-28-2022 Microscopic examination of blood, culture Culture Observations: NO GROWTH AT 5 DAYS. Normal [facility] Comment on above: Performed By: #### C BC #### [facility] [address] [address] [address] Hemanth Kerr Microscopic examination of blood, culture Culture Observations: NO GROWTH AT 5 DAYS. Normal [facility] Comment on above: Performed By: #### B [id number] #### [facility] [address] [place] [address] Dr. Hemanth Kerr Covid-19 PCR ([facility])on 11-15 SARS-CoV-2 (COVID-19) RNA ELMO+probe Ql (Unsp spec) Not detected Normal NOT DETECTED [facility] Comment on above: Result Comment: When [...] for this test is supported by the [employer] Operator of Health and Human Service's declaration that [...] used). Performed By: #### L ACT #### [facility] [address] [place] [address] Dr. Hemanth Kerr DRUG SCREEN RAPID (URINE)on 11-28-2022 AMP Positive Abnormal NEGATIVE [facility] Comment on above: Performed By: #### P REG #### [facility] [address] [place] [address] Dr. Hemanth Kerr BAR Negative Normal NEGATIVE [facility] Comment on above: Performed By: #### P REG #### [facility] [address] [place] [address] Dr. Hemanth Kerr BUP Negative Normal NEGATIVE [facility] Comment on above: Performed By: #### P REG #### [facility] [address] [place] [address] Dr. Hemanth Kerr BZO Negative Normal NEGATIVE [facility] Comment on above: Performed By: #### P REG #### [facility] [address] [place] [address] Dr. Hemanth Kerr YOLANDA Negative Normal NEGATIVE [facility] Comment on above: Performed By: #### P REG #### [facility] [address] [place] [address] Dr. Hemanth Kerr CUT-OFFS SEE BELOW Normal [facility] Comment on above: Result Comment: AMP [...] ng/mL Performed By: #### P REG #### [facility] [address] [place] [address] Dr. Hemanth Kerr DRUG CUT HEADER DRUG CLASS TEST SYSTEM CUT-OFF CONCENTRATIONS ARE FOLLOWS: Normal [facility] Comment on above: Performed By: #### P REG #### [facility] [address] [place] [address] Dr. Hemanth Kerr mAMP Positive Abnormal NEGATIVE [facility] Comment on above: Performed By: #### P REG #### [facility] [address] [place] [address] Dr. Hemanth Kerr MTD Negative Normal NEGATIVE [facility] Comment on above: Performed By: #### P REG #### [facility] [address] [place] [address] Dr. Hemanth Kerr OPI Negative Normal NEGATIVE [facility] Comment on above: Performed By: #### P REG #### [facility] [address] [place] [address] Dr. Hemanth Kerr OXY Negative Normal NEGATIVE [facility] Comment on above: Performed By: #### P REG #### [facility] [address] [place] [address] Dr. Hemanth Kerr PCP Negative Normal NEGATIVE [facility] Comment on above: Performed By: #### P REG #### [facility] [address] [place] [address] Dr. Hemanth Kerr PPX Negative Normal NEGATIVE [facility] Comment on above: Performed By: #### P REG #### [facility] [address] [address] [address] Hemanth Kerr TCA Negative Normal NEGATIVE [facility] Comment on above: Performed By: #### P REG #### [facility] [address] [place] [address] Dr. Hemanth Kerr THC Negative Normal NEGATIVE [facility] Comment on above: Performed By: #### P REG #### [facility] [address] [place] [address] Dr. Hemanth Kerr ER URINE PROFILEon 3 Bilirubin Ql (U) Negative Normal NEGATIVE [facility] Comment on above: Performed By: #### P REG #### [facility] [address] [place] [address] Dr. Hemanth Kerr Clarity (U) CLEAR Normal CLEAR [facility] Comment on above: Performed By: #### P REG #### [facility] [address] [place] [address] Dr. Hemanth Kerr Color (U) LT. YELLOW Normal YELLOW [facility] Comment on above: Performed By: #### P REG #### [facility] [address] [place] [address] Dr. Hemanth Kerr ERUAbi A micrscopic examination will be performed if indicated. Normal [facility] Comment on above: Performed By: #### P REG #### [facility] [address] [place] [address] Dr. Hemanth Kerr Glucose Ql (U) Negative Normal NEGATIVE [facility] Comment on above: Performed By: #### P REG #### [facility] [address] [place] [address] Dr. Hemanth Kerr Hemoglobin Ql (U) Negative Normal NEGATIVE [facility] Comment on above: Performed By: #### P REG #### [facility] [address] [place] [address] Dr. Hemanth Kerr Ketones Ql (U) Negative Normal NEGATIVE [facility] Comment on above: Performed By: #### P REG #### [facility] [address] [place] [address] Dr. Hemanth Kerr LEUKOCYTES Negative Normal NEGATIVE [facility] Comment on above: Performed By: #### P REG #### [facility] [address] [place] [address] Dr. Hemanth Kerr Nitrite Ql (U) Positive Abnormal NEGATIVE [facility] Comment on above: Performed By: #### P REG #### [facility] [address] [place] [address] Dr. Hemanth Kerr pH (U) 7.5 [pH] Normal 5-9 [facility] Comment on above: Performed By: #### P REG #### [facility] [address] [place] [address] Dr. Hemanth Kerr SPEC GRAVITY 1.020 Normal 1.005-<=1.025 [facility] Comment on above: Performed By: #### P REG #### [facility] [address] [place] [address] Dr. Hemanth Kerr UA PROTEIN TRACE Normal NEGATIVE/ TRACE [facility] Comment on above: Performed By: #### P REG #### [facility] [address] [place] [address] Dr. Hemanth Kerr UR MICRO IND INDICATED Normal [facility] Comment on above: Performed By: #### P REG #### [facility] [address] [place] [address] Dr. Hemanth Kerr Urobilinogen Qn (U) 1.0 {Jose'U}/dL Normal 0.2 - 1. 0 [facility] Comment on above: Performed By: #### P REG #### [facility] [address] [place] [address] Dr. Hemanth Kerr ETHANOL (BLD ALC)on 11-29-19 23 ALC NOTE NOTE: 80 mg/dl is th e legal limit for a blood alcohol level Normal [facility] Comment on above: Performed By: #### C MP #### [facility] [address] [place] [address] Dr. Hemanth Kerr Ethanol [Mass/Vol] mg/dL Normal [facility] Comment on above: Performed By: #### C MP #### [facility] [address] [place] [address] Dr. Hemanth Kerr LACTATE/LACTIC ACIDon 2022 Lactate [Moles/Vol] 0.7 mmol/L Normal 0.4-2.0 [facility] Comment on above: Performed By: #### L ACT #### [facility] [address] [address] [address] Hemanth Kerr Lactate [Moles/Vol] 9.0 mmol/L Critically high 0.4-2.0 [facility] Comment on above: Performed By: #### L ACT #### [facility] [address] [address] [address] Hemanth Kerr PH VENOUS BLOODon 11-28-2022 PCO2 VENOUS 36.6 mmHg Critically low 40.0-52.0 [facility] Comment on above: Performed By: #### P HVEN #### [facility] [address] [place] [address] Dr. Hemanth Kerr pH VENOUS 7.354 Normal 7.330-7.430 [facility] Comment on above: Performed By: #### P HVEN #### [facility] [address] [place] [address] Dr. Hemanth Kerr POINT OF CARE GLUCOSEon 11-15 Glucose [Mass/Vol] 127 mg/dL Critically high 74-106 [facility] Comment on above: Performed By: #### C BC #### [facility] [address] [place] [address] Dr. Hemanth Kerr PREG HCG QUALon 11-28-2022 , QUAL Negative Normal NEGATIVE [facility] Comment on above: Performed By: #### P REG #### [facility] [address] [place] [address] Dr. Hemanth Kerr PROF 14(COMP METB)on 023 Albumin [Mass/Vol] 3.7 g/dL Normal 3.4-5.0 [facility] Comment on above: Performed By: #### L ACT #### [facility] [address] [place] [address] Dr. Hemanth Kerr Albumin/Globulin [Mass ratio] 1.3 {ratio} Normal [facility] Comment on above: Performed By: #### L ACT #### [facility] [address] [address] [address] Hemanth Kerr ALP [Catalytic activity/Vol] 72 U/L Normal 46-116 [facility] Comment on above: Performed By: #### L ACT #### [facility] [address] [address] [address] Hemanth Kerr ALT [Catalytic activity/Vol] 42 U/L Normal 14-59 [facility] Comment on above: Performed By: #### L ACT #### [facility] [address] [address] [address] Hemanth Kerr Anion gap [Moles/Vol] 16.3 mmol/L Normal [facility] Comment on above: Performed By: #### L ACT #### [facility] [address] [place] [address] Dr. Hemanth Kerr AST [Catalytic activity/Vol] 45 U/L Critically high 15-37 [facility] Comment on above: Performed By: #### L ACT #### [facility] [address] [place] [address] Dr. Hemanth Kerr Bilirubin [Mass/Vol] 0.4 mg/dL Normal 0.2-1.0 [facility] Comment on above: Performed By: #### L ACT #### [facility] [address] [place] [address] Dr. Hemanth Kerr Calcium [Mass/Vol] 8.8 mg/dL Normal 8.5-10.1 [facility] Comment on above: Performed By: #### L ACT #### [facility] [address] [place] [address] Dr. Hemanth Kerr Chloride [Moles/Vol] 107 mmol/L Normal 98-107 [facility] Comment on above: Performed By: #### L ACT #### [facility] [address] [address] [address] Hemanth Kerr CO2 [Moles/Vol] 21.8 mmol/L Normal 21.0-32.0 [facility] Comment on above: Performed By: #### L ACT #### [facility] [address] [address] [address] Hemanth Kerr Creatinine [Mass/Vol] 1.32 mg/dL Critically high 0.55-1.02 [facility] Comment on above: Performed By: #### L ACT #### [facility] [address] [address] [address] Hemanth Kerr EGFR-AF [place] 58 mL/min/1.73m2 Critically low >=60 [facility] Comment on above: Performed By: #### L ACT #### [facility] [address] [address] [address] Hemanth Kerr EGFR-NON AF [place] 48 mL/min/1.73m2 Critically low >=60 [facility] Comment on above: Performed By: #### L ACT #### [facility] [address] [place] [address] Dr. Hemanth Kerr Globulin (S) [Mass/Vol] 2.9 g/dL Normal [facility] Comment on above: Performed By: #### L ACT #### [facility] [address] [address] [address] Hemanth Kerr Glucose [Mass/Vol] 143 mg/dL Critically high 74-106 [facility] Comment on above: Performed By: #### L ACT #### [facility] [address] [address] [address] Hemanth Kerr Potassium [Moles/Vol] 3.1 mmol/L Critically low 3.5-5.1 [facility] Comment on above: Performed By: #### L ACT #### [facility] [address] [address] [address] Hemanth Kerr Protein [Mass/Vol] 6.6 g/dL Normal 6.4-8.2 [facility] Comment on above: Performed By: #### L ACT #### [facility] [address] [address] [address] Hemanth Kerr Sodium [Moles/Vol] 142 mmol/L Normal 136-145 [facility] Comment on above: Performed By: #### L ACT #### [facility] [address] [address] [address] Hemanth Kerr Urea nitrogen [Mass/Vol] 17.0 mg/dL Normal 7.0-18.0 [facility] Comment on above: Performed By: #### L ACT #### [facility] [address] [place] [address] Dr. Hemanth Kerr Urea nitrogen/Creatinine [Mass ratio] 12.9 mg/mg Normal [facility] Comment on above: Performed By: #### L ACT #### [facility] [address] [place] [address] Dr. Hemanth Kerr PROTIMEon 11-28-2022 INR Coag (PPP) [Relative time] 0.97 {INR} Normal [facility] Comment on above: Performed By: #### P T, PTT #### [facility] [address] [place] [address] Dr. Hemanth Kerr INR GUIDELINES SEE BELOW Normal [facility] Comment on above: Result Comment: CHAN RED INR: 2.0 - 3.0 CONDITIONS NOT LISTED BELOW 2.5 - 3.5 FOR PROSTHETIC HEART VALVE REPLACEMENT 2.5 - 3.5 RECURRENT THROMBOSIS Performed By: #### P T, PTT #### [facility] [address] [place] [address] Dr. Hemanth Kerr PT Coag (PPP) [Time] 10.3 s Normal 9.0-11.6 [facility] Comment on above: Performed By: #### P T, PTT #### [facility] [address] [place] [address] Dr. Hemanth Kerr PTTon 11-28-2022 aPTT Coag (Bld) [Time] 25.4 s Normal 22.3-36.2 [facility] Comment on above: Performed By: #### P T, PTT #### [facility] [address] [place] [address] Dr. Hemanth Kerr SALICYLATEon 11-28-2022 SALICYLATE <2.8 Normal <=19.9 [facility] Comment on above: Performed By: #### C MP #### [facility] [address] [place] [address] Dr. Hemanth Kerr TROPONIN, HIGH SENSITIVITYon 11-28-2022 HSTROP 4.2 pg/mL Normal 4.0-51.3 [facility] Comment on above: Result Comment: CUT- OFF POINTS HAVE BEEN ESTABLISHED BASED ON THE FOURTH UNIVERSAL DEFINITIONS OF MYOCARDIAL INFARCTION. THE UPPER REFERENCE LIMIT (URL) OF TROPONIN, DEFINED THE 99TH PERCENTILE OF cTnI DISTRIBUTION IN A REFERENCE POPULATION, HAS BEEN CONFIRMED THE DECISION THRESHOLD FOR UT DIAGNOSIS. Performed By: #### C MP #### [facility] [address] [place] [address] Dr. Hemanth Kerr TSHon 11-28-2022 TSH 3.476 uIU/mL Normal 0.358-3.740 [facility] Comment on above: Performed By: #### L ACT #### [facility] [address] [place] [address] Dr. Hemanth Kerr URINE MICROSCOPIC ONLYon BACTERIA LARGE Abnormal NONE SEEN [facility] Comment on above: Performed By: #### P REG #### [facility] [address] [place] [address] Dr. Hemanth Kerr Bacteria identified Cx Nom (U) INDICATED Normal [facility] Comment on above: Performed By: #### P REG #### [facility] [address] [place] [address] Dr. Hemanth Kerr CAST SEEN Abnormal NONE SEEN [facility] Comment on above: Performed By: #### P REG #### [facility] [address] [place] [address] Dr. Hemanth Kerr COARSE GRANULAR CAST RARE Normal [facility] Comment on above: Performed By: #### P REG #### [facility] [address] [place] [address] Dr. Hemanth Kerr Crystals LM Nom (Urine sed) NONE SEEN Normal NONE SEEN [facility] Comment on above: Performed By: #### P REG #### [facility] [address] [place] [address] Dr. Hemanth Kerr Epithelial cells LM Ql (Urine sed) RARE Normal NONE SEEN /RARE [facility] Comment on above: Performed By: #### P REG #### [facility] [address] [place], [place] [id number] Dr. Hemanth Kerr MUCOUS NONE SEEN Normal NONE SEEN [facility] Comment on above: Performed By: #### P REG #### [facility] [address] [place] [address] Dr. Hemanth Kerr RBC 0-2 Normal 0-2 [facility] Comment on above: Performed By: #### P REG #### [facility] [address] [place] [address] Dr. Hemanth Kerr WBC 2-5 Abnormal NONE SEEN [facility] Comment on above: Performed By: #### P REG #### [facility] [address] [place] [address] Dr. Hemanth Kerr XR CHEST 1 Von [...] KAMILLA MILLS Date: 2022-11-28 17:39 Normal [facility] CULTURE URINEon 10-13-2022 CULTURE URINE Isolate [...] Trimethoprim/Sulfamet hoxazole >=320 R F Normal [facility] Comment on above: Performed By: #### U RCX #### [facility] [address] [address] [address] Hemanth Kerr CBC AUTO DIFFon 10-11-2022 BASO # 0.0 103/ul Normal 0.0-0.1 [facility] Comment on above: Performed By: #### C BC #### [facility] [address] [address] [address] Hemanth Kerr Basophils/100 WBC (Bld) 0.3 % Normal 0.2-2.0 [facility] Comment on above: Performed By: #### C BC #### [facility] [address] [address] [address] Hemanth Kerr EO # 0.0 103/ul Normal 0.0-0.7 [facility] Comment on above: Performed By: #### C BC #### [facility] [address] [place] [address] Dr. Hemanth Kerr Eosinophils/100 WBC (Bld) 0.4 % Critically low 0.9-7.0 [facility] Comment on above: Performed By: #### C BC #### [facility] [address] [place] [address] Dr. Hemanth Kerr Erythrocyte distribution width (RBC) [Ratio] 12.2 % Normal 11.0-15.0 [facility] Comment on above: Performed By: #### C BC #### [facility] [address] [place] [address] Dr. Hemanth Kerr Hematocrit (Bld) [Volume fraction] 38.6 % Normal 36.0-48.0 [facility] Comment on above: Performed By: #### C BC #### [facility] [address] [place] [address] Dr. Hemanth Kerr Hemoglobin (Bld) [Mass/Vol] 12.0 g/dL Normal 12.0-16.0 [facility] Comment on above: Performed By: #### C BC #### [facility] [address] [place] [address] Dr. Hemanth Kerr IG # 0.07 10e3/ul Critically high 0.00-0.03 [facility] Comment on above: Performed By: #### C BC #### [facility] [address] [place] [address] Dr. Hemanth Kerr IG % 0.7 % Critically high 0.0-0.5 [facility] Comment on above: Performed By: #### C BC #### [facility] [address] [place] [address] Dr. Hemanth Kerr LYMPH # 1.2 103/ul Normal 1.2-3.8 [facility] Comment on above: Performed By: #### C BC #### [facility] [address] [place] [address] Dr. Hemanth Kerr Lymphocytes/100 WBC (Bld) 12.1 % Critically low 20.5-60.0 [facility] Comment on above: Performed By: #### C BC #### [facility] [address] [place] [address] Dr. Hemanth Kerr MANUAL DIFF REQ NO Normal [facility] Comment on above: Performed By: #### C BC #### [facility] [address] [place] [address] Dr. Hemanth Kerr MCH (RBC) [Entitic mass] 28.0 pg Normal 26.7-34.0 [facility] Comment on above: Performed By: #### C BC #### [facility] [address] [place] [address] Dr. Hemanth Kerr MCHC (RBC) [Mass/Vol] 31.1 g/dL Normal 29.9-35.2 [facility] Comment on above: Performed By: #### C BC #### [facility] [address] [place] [address] Dr. Hemanth Kerr MCV (RBC) [Entitic vol] 90.2 fL Normal 81.0-99.0 [facility] Comment on above: Performed By: #### C BC #### [facility] [address] [place] [address] Dr. Hemanth Kerr MONO # 0.7 103/ul Normal 0.3-0.8 [facility] Comment on above: Performed By: #### C BC #### [facility] [address] [address] [address] Hemanth Kerr Monocytes/100 WBC (Bld) 6.9 % Normal 1.7-12.0 [facility] Comment on above: Performed By: #### C BC #### [facility] [address] [address] [address] Hemanth Kerr NEUT # 8.1 103/ul Critically high 1.4-6.5 [facility] Comment on above: Performed By: #### C BC #### [facility] [address] [address] [address] Hemanth Kerr Neutrophils/100 WBC (Bld) 79.6 % Critically high 43.0-75.0 [facility] Comment on above: Performed By: #### C BC #### [facility] [address] [place] [address] Dr. Hemanth Kerr Platelet mean volume (Bld) [Entitic vol] 10.8 fL Normal 9.5-13.5 [facility] Comment on above: Performed By: #### C BC #### [facility] [address] [address] [address] Hemanth Kerr PLT 452 103/ul Critically high 150-450 [facility] Comment on above: Performed By: #### C BC #### [facility] [address] [address] [address] Hemanth Kerr RBC 4.28 106/ul Normal 4.20-5.40 [facility] Comment on above: Performed By: #### C BC #### [facility] [address] [address] [address] Hemanth Kerr WBC 10.1 103/ul Normal 4.0-11.0 [facility] Comment on above: Performed By: #### C BC #### [facility] [address] [place] [address] ABD/PELVIS WO CONon [...] by: CHRISTINE SÁNCHEZ Date: 2022-10-11 14:45 Normal [facility] ER URINE PROFILEon 3 Bilirubin Ql (U) Negative Normal NEGATIVE [facility] Comment on above: Performed By: #### L ACT #### [facility] [address] [place] [address] Dr. Hemanth Kerr Clarity (U) CLEAR Normal CLEAR [facility] Comment on above: Performed By: #### L ACT #### [facility] [address] [address] [address] Hemanth Kerr Color (U) LT. YELLOW Normal YELLOW [facility] Comment on above: Performed By: #### L ACT #### [facility] [address] [place] [address] Dr. Hemanth Kerr ERUAHD A micrscopic examination will be performed if indicated. Normal [facility] Comment on above: Performed By: #### L ACT #### [facility] [address] [address] [address] Hemanth Kerr Glucose Ql (U) Negative Normal NEGATIVE [facility] Comment on above: Performed By: #### L ACT #### [facility] [address] [address] [address] Hemanth Kerr Hemoglobin Ql (U) LARGE Abnormal NEGATIVE [facility] Comment on above: Performed By: #### L ACT #### [facility] [address] [address] [address] Hemanth Kerr Ketones Ql (U) Negative Normal NEGATIVE [facility] Comment on above: Performed By: #### L ACT #### [facility] [address] [place] [address] Dr. Hemanth Kerr LEUKOCYTES SMALL Abnormal NEGATIVE [facility] Comment on above: Performed By: #### L ACT #### [facility] [address] [place] [address] Dr. Hemanth Kerr Nitrite Ql (U) Negative Normal NEGATIVE [facility] Comment on above: Performed By: #### L ACT #### [facility] [address] [address] [address] Hemanth Kerr pH (U) 6.5 [pH] Normal 5-9 [facility] Comment on above: Performed By: #### L ACT #### [facility] [address] [place] [address] Dr. Hemanth Kerr Protein (U) [Mass/Vol] 30 mg/dL Abnormal NEGATIVE/ TRACE [facility] Comment on above: Performed By: #### L ACT #### [facility] [address] [place] [address] Dr. Hemanth Kerr SPEC GRAVITY <=1.005 Abnormal 1.005-<=1.025 [facility] Comment on above: Performed By: #### L ACT #### [facility] [address] [place] [address] Dr. Hemanth Kerr UR MICRO IND INDICATED Normal [facility] Comment on above: Performed By: #### L ACT #### [facility] [address] [address] [address] Hemanth Kerr Urobilinogen Qn (U) 1.0 {Jose'U}/dL Normal 0.2 - 1. 0 [facility] Comment on above: Performed By: #### L ACT #### [facility] [address] [address] [address] Hemanth Kerr PREG HCG QUALon 10-11-2022 , QUAL Negative Normal NEGATIVE [facility] Comment on above: Performed By: #### P REG #### [facility] [address] [address] [address] Hemanth Kerr PROF CHEM 8 (BAS METB)on Anion gap [Moles/Vol] 9.4 mmol/L Normal [facility] Comment on above: Performed By: #### L ACT #### [facility] [address] [place] [address] Dr. Hemanth Kerr Calcium [Mass/Vol] 8.8 mg/dL Normal 8.5-10.1 [facility] Comment on above: Performed By: #### L ACT #### [facility] [address] [address] [address] Hemanth Kerr Chloride [Moles/Vol] 97 mmol/L Critically low 98-107 [facility] Comment on above: Performed By: #### L ACT #### [facility] [address] [place] [address] Dr. Hemanth Kerr CO2 [Moles/Vol] 32.4 mmol/L Critically high 21.0-32.0 [facility] Comment on above: Performed By: #### L ACT #### [facility] [address] [place] [address] Dr. Hemanth Kerr Creatinine [Mass/Vol] 0.65 mg/dL Normal 0.55-1.02 [facility] Comment on above: Performed By: #### L ACT #### [facility] [address] [place] [address] Dr. Hemanth Kerr EGFR-AF [place] >60 Normal >=60 [facility] Comment on above: Performed By: #### L ACT #### [facility] [address] [address] [address] Hemanth Kerr EGFR-NON AF [place] >60 Normal >=60 [facility] Comment on above: Performed By: #### L ACT #### [facility] [address] [place] [address] Dr. Hemanth Kerr Glucose [Mass/Vol] 117 mg/dL Critically high 74-106 T [facility] Comment on above: Performed By: #### L ACT #### [facility] [address] [address] [address] Hemanth Kerr Potassium [Moles/Vol] 2.8 mmol/L Critically low 3.5-5.1 [facility] Comment on above: Performed By: #### L ACT #### [facility] [address] [place] [address] Dr. Hemanth Kerr Sodium [Moles/Vol] 135 mmol/L Critically low 136-145 Th [facility] Comment on above: Performed By: #### L ACT #### [facility] [address] [place] [address] Dr. Hemanth Kerr Urea nitrogen [Mass/Vol] 8.0 mg/dL Normal 7.0-18.0 [facility] Comment on above: Performed By: #### L ACT #### [facility] [address] [place] [address] Dr. Hemanth Kerr Urea nitrogen/Creatinine [Mass ratio] 12.3 mg/mg Normal [facility] Comment on above: Performed By: #### L ACT #### [facility] [address] [place] [address] Dr. Hemanth Kerr URINE MICROSCOPIC ONLYon BACTERIA SMALL Abnormal NONE SEEN [facility] Comment on above: Performed By: #### L ACT #### [facility] [address] [place], [place] [id number] Dr. Hemanth Kerr Bacteria identified Cx Nom (U) INDICATED Normal [facility] Comment on above: Performed By: #### L ACT #### [facility] [address] [place] [address] Dr. Hemanth Kerr CAST NONE SEEN Normal NONE SEEN [facility] Comment on above: Performed By: #### L ACT #### [facility] [address] [place] [address] Dr. Hemanth Kerr Crystals LM Nom (Urine sed) NONE SEEN Normal NONE SEEN [facility] Comment on above: Performed By: #### L ACT #### [facility] [address] [place] [address] Dr. Hemanth Kerr Epithelial cells LM Ql (Urine sed) FEW Abnormal NONE SEEN /RARE [facility] Comment on above: Performed By: #### L ACT #### [facility] [address] [place] [address] Dr. Hemanth eKrr MUCOUS NONE SEEN Normal NONE SEEN [facility] Comment on above: Performed By: #### L ACT #### [facility] [address] [place] [address] Dr. Hemanth Kerr RBC 0-2 Normal 0-2 [facility] Comment on above: Performed By: #### L ACT #### [facility] [address] [place] [address] Dr. Hemanth Kerr WBC 10-20 Abnormal NONE SEEN [facility] Comment on above: Performed By: #### L ACT #### [facility] [address] [place] [address] Dr. Hemanth Kerr PREG QUANT HCGon 09-12-2022 HCG QUANT 66 mIU/mL Normal [facility] Comment on above: Performed By: #### C MP #### [facility] [address] [place] [address] Dr. Hemanth Kerr HCG RANGE SEE BELOW Normal [facility] Comment on above: Result Comment: 5-50 0.2-1 WEEK 50-500 1-2 WEEKS 100-5,000 2-3 WEEKS 500-10,000 3-4 WEEKS 1,000-50,000 4-5 WEEKS 10,000-100,000 5-6 WEEKS 15,000-200,000 6-8 WEEKS 10,000-100,000 2-3 MONTHS Performed By: #### C MP #### [facility] [address] [place] [address] Dr. Hemanth Kerr CBC AUTO DIFFon 08-16-2022 BASO # 0.0 103/ul Normal 0.0-0.1 [facility] Comment on above: Performed By: #### L ACT #### [facility] [address] [place] [address] Dr. Hemanth Kerr Basophils/100 WBC (Bld) 0.6 % Normal 0.2-2.0 [facility] Comment on above: Performed By: #### L ACT #### [facility] [address] [address] [address] Hemanth Kerr EO # 0.1 103/ul Normal 0.0-0.7 [facility] Comment on above: Performed By: #### L ACT #### [facility] [address] [place] [address] Dr. Hemanth Kerr Eosinophils/100 WBC (Bld) 1.3 % Normal 0.9-7.0 [facility] Comment on above: Performed By: #### L ACT #### [facility] [address] [place] [address] Dr. Hemanth Kerr Erythrocyte distribution width (RBC) [Ratio] 12.0 % Normal 11.0-15.0 [facility] Comment on above: Performed By: #### L ACT #### [facility] [address] [place] [address] Dr. Hemanth Kerr Hematocrit (Bld) [Volume fraction] 35.6 % Critically low 36.0-48.0 [facility] Comment on above: Performed By: #### L ACT #### [facility] [address] [place] [address] Dr. Hemanth Kerr Hemoglobin (Bld) [Mass/Vol] 12.4 g/dL Normal 12.0-16.0 [facility] Comment on above: Performed By: #### L ACT #### [facility] [address] [place] [address] Dr. Hemanth Kerr IG # 0.02 10e3/ul Normal 0.00-0.03 [facility] Comment on above: Performed By: #### L ACT #### [facility] [address] [place] [address] Dr. Hemanth Kerr IG % 0.3 % Normal 0.0-0.5 [facility] Comment on above: Performed By: #### L ACT #### [facility] [address] [place] [address] Dr. Hemanth Kerr LYMPH # 1.9 103/ul Normal 1.2-3.8 [facility] Comment on above: Performed By: #### L ACT #### [facility] [address] [place] [address] Dr. Hemanth Kerr Lymphocytes/100 WBC (Bld) 27.5 % Normal 20.5-60.0 [facility] Comment on above: Performed By: #### L ACT #### [facility] [address] [place] [address] Dr. Hemanth Kerr MANUAL DIFF REQ NO Normal [facility] Comment on above: Performed By: #### L ACT #### [facility] [address] [place] [address] Dr. Hemanth Kerr MCH (RBC) [Entitic mass] 29.6 pg Normal 26.7-34.0 [facility] Comment on above: Performed By: #### L ACT #### [facility] [address] [place] [address] Dr. Hemanth Kerr MCHC (RBC) [Mass/Vol] 34.8 g/dL Normal 29.9-35.2 [facility] Comment on above: Performed By: #### L ACT #### [facility] [address] [place] [address] Dr. Hemanth Kerr MCV (RBC) [Entitic vol] 85.0 fL Normal 81.0-99.0 [facility] [facility] Comment on above: Performed By: #### L ACT #### [facility] [address] [place] [address] Dr. Hemanth Kerr MONO # 0.4 103/ul Normal 0.3-0.8 [facility] Comment on above: Performed By: #### L ACT #### [facility] [address] [place] [address] Dr. Hemanth Kerr Monocytes/100 WBC (Bld) 6.3 % Normal 1.7-12.0 [facility] Comment on above: Performed By: #### L ACT #### [facility] [address] [address] [address] Hemanth Kerr NEUT # 4.5 103/ul Normal 1.4-6.5 [facility] Comment on above: Performed By: #### L ACT #### [facility] [address] [address] [address] Hemanth Kerr Neutrophils/100 WBC (Bld) 64.0 % Normal 43.0-75.0 [facility] Comment on above: Performed By: #### L ACT #### [facility] [address] [place] [address] Dr. Hemanth Kerr Platelet mean volume (Bld) [Entitic vol] 10.6 fL Normal 9.5-13.5 [facility] Comment on above: Performed By: #### L ACT #### [facility] [address] [place] [address] Dr. Hemanth Kerr PLT 247 103/ul Normal 150-450 [facility] Comment on above: Performed By: #### L ACT #### [facility] [address] [place] [address] Dr. Hemanth Kerr RBC 4.19 106/ul Critically low 4.20-5.40 [facility] Comment on above: Performed By: #### L ACT #### [facility] [address] [place] [address] Dr. Hemanth Kerr WBC 7.0 103/ul Normal 4.0-11.0 [facility] Comment on above: Performed By: #### L ACT #### [facility] [address] [place] [address] Dr. Hemanth Kerr Covid-19 PCR ([facility])on 07-20 SARS-CoV-2 (COVID-19) RNA ELMO+probe Ql (Unsp spec) Not detected Normal NOT DETECTED [facility] Comment on above: Result Comment: This test is not yet approved or cleared by the [place] FDA. When there are no FDA-approved or cleared tests available, and other criteria are met, FDA can make tests available under an emergency access mechanism called an Emergency Use Authorization (EUA). The EUA for this test is supported by the [employer] of Health and Human Service's (HHS's) declaration [...] SARS-CoV-2. Performed By: #### C MP #### [facility] [address] [place] [address] Dr. Hemanth Kerr PREG QUANT HCGon 08-16-2022 HCG QUANT [id number] mIU/mL Normal [facility] Comment on above: Performed By: #### P REG #### [facility] [address] [place] [address] Dr. Hemanth Kerr HCG RANGE SEE BELOW Normal [facility] Comment on above: Result Comment: 5-50 0.2-1 WEEK 50-500 1-2 WEEKS 100-5,000 2-3 WEEKS 500-10,000 3-4 WEEKS 1,000-50,000 4-5 WEEKS 10,000-100,000 5-6 WEEKS 15,000-200,000 6-8 WEEKS 10,000-100,000 2-3 MONTHS Performed By: #### P REG #### [facility] [address] [place] [address] Dr. Hemanth Kerr PREG QUANT HCGon 08-14-2022 HCG QUANT 65224 mIU/mL Normal [facility] Comment on above: Performed By: #### P REG #### [facility] [address] [place] [address] Dr. Hemanth Kerr HCG RANGE SEE BELOW Normal [facility] Comment on above: Result Comment: 5-50 0.2-1 WEEK 50-500 1-2 WEEKS 100-5,000 2-3 WEEKS 500-10,000 3-4 WEEKS 1,000-50,000 4-5 WEEKS 10,000-100,000 5-6 WEEKS 15,000-200,000 6-8 WEEKS 10,000-100,000 2-3 MONTHS Performed By: #### P REG #### [facility] [address] [address] [address] Hemanth Kerr US PREG TVon 08-14-2022 [...] by: CHRISTINE SÁNCHEZ Date: 2022-08-14 16:22 Normal [facility] US PREG TVon 07-27-2022 US [...] by: CHRISTINE SÁNCHEZ Date: 2022-07-27 17:04 Normal [facility] XR CHEST 1 Von 07-09-2022 [...] by: FELIX WEBB Date: 2022-07-09 12:06 Normal [facility] 12-12-2021 [facility] Telephone ([facility]) NOE ERVIN ([id number]) 1995 F Date Time Provider Department 12/12/21 KING SUAZO During your visit today, we recorded the following information about you: Angelia Almazan 12/12/2021 11:16 AM Signed Pleases sign pending new cbc order. Thanks, Angelia Almazan MA Allergies As of Date: 12/12/2021 (No Known Allergies) Date Reviewed: 12/12/2021 Reviewed by: Jasmin Silverio APRN.[facility] - Fully Assessed Reason for Visit: Lab Orders [168] Primary Visit Diagnosis:Iron deficiency anemia, unspecified iron deficiency anemia type [D50.9] Order(s):CBC + DIFF [SQCBCDIF] Order #: [id number] FUTURE Prescriptions as of 12/12/2021 - gabapentin (NEURONTIN) 400 mg capsule Take by mouth. - Polysaccharide Iron Complex 180 mg iron cap Take by mouth. - aspirin 81 mg cap Take 81 mg by mouth once daily. - ONDANSETRON HCL ORAL Take 4 mg by mouth as needed. Problem List As Of Date: 12/12/2021 (None) Encounter Status:Closed by JASMIN SILVERIO on 12/12/21 Normal [facility] 11-10-2021 [facility] Telephone ([facility]) NOE ERVIN ([id number]) 1995 F Date Time Provider Department 11/10/21 [...] B12 is slightly low. Options would be [id number]-nct-[id number] B12 tablets 2 mg daily or start a monthly injection. Thanks, MELANY De La O RN 11/10/2021 3:40 PM Signed Informed pt of Dr Suazo's message. Pt verbalized understanding and states [facility] told her only 2 doses of [...] by JENNYFER DE LA O on 11/10/21 [facility] CNOVSPon 11-08-2021 CNOVSP Visit (SP) Office ([place]) NOE ERVIN ([id number]) 1995 F Date Time Provider Department 11/08/21 [...] shortness of breath, and is seen at [place] emergency room. Labs revealed a hemoglobin of [...] changes, r (more content not included)... Normal [facility] Comp Metabolic Panelon 11-08 Albumin [Mass/Vol] 3.6 g/dL Low 3.9-4.9 [facility] Comment on above: Performed By: #### S ERFOL, IRON, B12, FERR #### [address] [place], [place] [address] ALP [Catalytic activity/Vol] 79 U/L Normal 34-123 [facility] Comment on above: Performed By: #### S ERFOL, IRON, B12, FERR #### [facility] [address] [place], [place] [address] ALT [Catalytic activity/Vol] 8 U/L Normal 7-38 [facility] Comment on above: Performed By: #### S ERFOL, IRON, B12, FERR #### [facility] [address] [place], [place] [address] Anion gap [Moles/Vol] 9 mmol/L Normal 9-18 [facility] Comment on above: Performed By: #### S ERFOL, IRON, B12, FERR #### [facility] [address] [place], [place] [address] AST [Catalytic activity/Vol] 13 U/L Normal 13-35 [facility] Comment on above: Performed By: #### S ERFOL, IRON, B12, FERR #### [address] [place] [address] Bilirubin [Mass/Vol] 0.2 mg/dL Normal 0.2-1.3 [facility] Comment on above: Performed By: #### S ERFOL, IRON, B12, FERR #### [address] [address] Calcium [Mass/Vol] 9.3 mg/dL Normal 8.5-10.2 [facility] Comment on above: Performed By: #### S ERFOL, IRON, B12, FERR #### [address] [place] [address] Chloride [Moles/Vol] 102 mmol/L Normal 97-105 [facility] Comment on above: Performed By: #### S ERFOL, IRON, B12, FERR #### [address] [address] CO2 [Moles/Vol] 23 mmol/L Normal 22-30 [facility] Comment on above: Performed By: #### S ERFOL, IRON, B12, FERR #### [address] [address] Creatinine [Mass/Vol] 0.55 mg/dL Low 0.58-0.96 [facility] Comment on above: Performed By: #### S ERFOL, IRON, B12, FERR #### [address] [place] [address] eGFR- Amer. >60 Normal [facility] Comment on above: Performed By: #### S ERFOL, IRON, B12, FERR #### [address] [place] [address] eGFR-All Other Races >60 Normal [facility] Comment on above: Result Comment: eGFR [...] #### S ERFOL, IRON, B12, FERR #### [facility] [address] [place] [place], [place] [address] Glucose [Mass/Vol] 96 mg/dL Normal 74-99 [facility] Comment on above: Result Comment: The [place] Diabetes Association (ADA) provides guidance for cutoff [...] Standards of Medical Care in Diabetes 2016, [place] [employer]. Diabetes Care. 2016.39(Suppl 1). Performed By: #### S ERFOL, IRON, B12, FERR #### [facility] [address] [place], [place] [address] Potassium [Moles/Vol] 3.3 mmol/L Low 3.7-5.1 [facility] Comment on above: Performed By: #### S ERFOL, IRON, B12, FERR #### [address] [place], [place] [address] Protein [Mass/Vol] 6.3 g/dL Normal 6.3-8.0 [facility] Comment on above: Performed By: #### S ERFOL, IRON, B12, FERR #### [address] [address] Sodium [Moles/Vol] 134 mmol/L Low 136-144 [facility] Comment on above: Performed By: #### S ERFOL, IRON, B12, FERR #### [place] [address] Urea nitrogen [Mass/Vol] 4 mg/dL Low 7-21 [facility] Comment on above: Performed By: #### S ERFOL, IRON, B12, FERR #### [address] [id number] Ferritinon 11-08-2021 Ferritin [Mass/Vol] 203.0 ng/mL Normal 14.7-205.1 [facility] Comment on above: Performed By: #### S ERFOL, IRON, B12, FERR #### [address] [address] Folate, Serumon 11-08-2021 Folate [Mass/Vol] 8.5 ng/mL Normal >4.7 [facility] Comment on above: Performed By: #### S ERFOL, IRON, B12, FERR #### [address] [address] Iron and TIBCon 11-08-2021 Iron [Mass/Vol] 93 ug/dL Normal 41-186 [facility] Comment on above: Performed By: #### S ERFOL, IRON, B12, FERR #### [address] [address] TIBC 407 ug/dL High 232-386 [facility] Comment on above: Performed By: #### S ERFOL, IRON, B12, FERR #### [facility] [address] [place] [id number] Transferrin Saturatn 23 % Normal 15-57 [facility] Comment on above: Performed By: #### S ERFOL, IRON, B12, FERR #### [facility] [address] [place], [place] [address] Remote CBCDIF (for [facility] use o nly)on 11-08-2021 Abs Baso <0.03 Normal <0.11 [facility] Abs Clay 0.57 k/uL Normal <0.87 [facility] Abs Neut 4.67 k/uL Normal 1.45-7.50 [facility] Absolute nRBC <0.01 Normal <0.01 [facility] Basophils/100 WBC (Bld) 0.3 % Normal [facility] DTYPE Auto Diff Normal [facility] Eosinophils (Bld) [#/Vol] 0.05 10*3/uL Normal <0.46 [facility] Eosinophils/100 WBC (Bld) 0.8 % Normal [facility] Erythrocyte distribution width (RBC) [Ratio] 29.9 % High 11.5-15.0 [facility] Hematocrit (Bld) [Volume fraction] 32.6 % Low 36.0-46.0 [facility] Hemoglobin (Bld) [Mass/Vol] 10.1 g/dL Low 11.5-15.5 [facility] Lymphocytes (Bld) [#/Vol] 1.25 10*3/uL Normal 1.00-4.00 [facility] Lymphocytes/100 WBC (Bld) 19.1 % Normal [facility] MCH 25.1 pG Low 26.0-34.0 [facility] MCHC (RBC) [Mass/Vol] 31.0 g/dL Normal 30.5-36.0 [facility] MCV (RBC) [Entitic vol] 81.1 fL Normal 80.0-100.0 [facility] Monocytes/100 WBC (Bld) 8.7 % Normal [facility] Neutrophils/100 WBC (Bld) 71.1 % Normal [facility] NRBCs 0.0 /100 WBC Normal 0 [facility] Platelet mean volume (Bld) [Entitic vol] 10.3 fL Normal 9.0-12.7 [facility] Platelets (Bld) [#/Vol] 223 10*3/uL Normal 150-400 [facility] Comment on above: Result Comment: Resu lt checked and verified Sample checked for a clot. RBC (Bld) [#/Vol] 4.02 10*6/uL Normal 3.90-5.20 [facility] WBC (Bld) [#/Vol] 6.56 10*3/uL Normal 3.70-11.00 [facility] Reticulocyteon 11-08-2021 Abs Retic 0.140 M/uL High 0.0180-0.1000 [facility] Comment on above: Performed By: #### S ERFOL, IRON, B12, FERR #### [address] [place] [address] Retic% 3.5 % High 0.4-2.0 [facility] Comment on above: Performed By: #### S ERFOL, IRON, B12, FERR #### [address] [place] [id number] Vitamin B12on 11-08-2021 Cobalamin (Vitamin B12) [Mass/Vol] 218 pg/mL Low 232-1245 [facility] Comment on above: Performed By: #### S ERFOL, IRON, B12, FERR #### [address] [place] [address] HCV RNA,Quant,PCRon 04-27-20 20 HCV RNA,Quant,PCR Specimen [...] genotypes 1-6. Report Status FINAL 04/27/2020 Normal [facility] [place] Comment on above: Performed By: #### H IVCMB, PHEP #### [address] [address] Preschool Assistant Director: Dom Folwer MD #### CP #### [facility] [address] [place] [address] Dr[id number] Preschool Assistant Director: Shakeel Graham MD [facility] 04-26-2020 Erythrocyte distribution width (RBC) [Ratio] 14.7 % High 11.8-14.4 [facility] [place] Comment on above: Performed By: #### H IVCMB, PHEP #### [address] [address] Preschool Assistant Director: Dom Fowler MD #### CP #### [facility] [address] [place] [address] Dr. [id number] Preschool Assistant Director: Shakeel Graham MD Hematocrit (Bld) [Volume fraction] 36.0 % Low 36.3-47.1 [facility] [place] Comment on above: Performed By: #### H IVCMB, PHEP #### [address] [address] Preschool Assistant Director: Dom Fowler MD #### CP #### [facility] [address] [place] [address] [phone] Preschool Assistant Director: Shakeel Graham MD Hemoglobin (Bld) [Mass/Vol] 10.9 g/dL Low 11.9-15.1 [facility] [place] Comment on above: Performed By: #### H IVCMB, PHEP #### [address] [address] Preschool Assistant Director: Dom Fowler MD #### CP #### [facility] [address] [place] [address] [place] [phone] Preschool Assistant Director: Shakeel Graham MD MCH (RBC) [Entitic mass] 26.2 pg Normal 25.2-33.5 [facility] [place] Comment on above: Performed By: #### H IVCMB, PHEP #### [address] [address] Preschool Assistant Director: Dom Fowler MD #### CP #### [facility] [address] [place] [address] Dr. [phone] Preschool Assistant Director: Shakeel Graham MD MCHC (RBC) [Mass/Vol] 30.3 g/dL Normal 28.4-34.8 [facility] Comment on above: Performed By: #### H IVCMB, PHEP #### [address] [address] Preschool Assistant Director: Dom Fowler MD #### CP #### [address] [phone] Preschool Assistant Director: Shakeel Graham MD MCV (RBC) [Entitic vol] 86.5 fL Normal 82.6-102.9 [facility] Comment on above: Performed By: #### H IVCMB, PHEP #### [address] [address] Preschool Assistant Director: Dom Fowler MD #### CP #### [phone] Preschool Assistant Director: Shakeel Graham MD NRBC Automated 0.0 per 100 WBC Normal 0.0 [facility] Comment on above: Performed By: #### H IVCMB, PHEP #### [address] [address] Preschool Assistant Director: Dom Fowler MD #### CP #### [address] [place], [place] [phone] Preschool Assistant Director: Shakeel Graham MD Platelet mean volume (Bld) [Entitic vol] 10.8 fL Normal 8.1-13.5 [facility] [place] Comment on above: Performed By: #### H IVCMB, PHEP #### [address] [address] Preschool Assistant Director: Dom Fowler MD #### CP #### [address] [place], [place] [id number] Preschool Assistant Director: Shakeel Graham MD Platelets (Bld) [#/Vol] 328 10*3/uL Normal 138-453 [facility] Comment on above: Performed By: #### H IVCMB, PHEP #### [address] [address] Preschool Assistant Director: Dom Fowler MD #### CP #### [address] [place], [place] [id number] Preschool Assistant Director: Shakeel Graham MD RBC (Bld) [#/Vol] 4.16 10*6/uL Normal 3.95-5.11 [facility] Comment on above: Performed By: #### H IVCMB, PHEP #### [address] [address] Preschool Assistant Director: Dom Fowler MD #### CP #### [address] [place], [place] [id number] Preschool Assistant Director: Shakeel Graham MD WBC (Bld) [#/Vol] 5.7 10*3/uL Normal 3.5-11.3 [facility] Comment on above: Performed By: #### H IVCMB, PHEP #### [address] [address] Preschool Assistant Director: Dom Fowler MD #### CP #### [address] [place] [address] Preschool Assistant Director: Shakeel Graham MD Erythrocyte distribution width (RBC) [Ratio] 14.7 % High 11.8 - 14.4 % [place], [place] Hematocrit (Bld) [Volume fraction] 36.0 % Low 36.3 - 47.1 % [place] Hemoglobin (Bld) [Mass/Vol] 10.9 g/dL Low 11.9 - 15.1 g/dL [place] Interpretation and review of laboratory results Abnormal [place] MCH (RBC) [Entitic mass] 26.2 pg 25.2 - 33.5 pg [place] MCHC (RBC) [Mass/Vol] 30.3 g/dL 28.4 - 34.8 g/dL [place] MCV (RBC) [Entitic vol] 86.5 fL 82.6 - 102.9 fL [place] Platelet mean volume (Bld) [Entitic vol] 10.8 fL 8.1 - 13.5 fL [place], [place] Platelets (Bld) [#/Vol] 328 10*3/uL [place] RBC (Bld) [#/Vol] 4.16 10*6/uL 3.95 - 5.1 1 m/uL [place] WBC (Bld) [#/Vol] 0.0 10*3/uL 0.0 per 100 WBC [place] WBC (Bld) [#/Vol] 5.7 10*3/uL [place], [place] Comp Metabolic Profon 2019 Bilirubin Ql (U) <0.10 Low 0.3-1.2 [facility] [place] Comment on above: Performed By: #### H IVCMB, PHEP #### [facility] [address] [place] [address] Preschool Assistant Director: Dom Fowler MD #### CP #### [facility] [address] [place] [address] Preschool Assistant Director: Shakeel Graham MD (cont.) Normal [facility] [place] Comment on above: Result Comment: Aver age GFR for 20-29 years old: 116 mL/min/1.73sq m Chronic Kidney Disease: <60 mL/min/1.73sq m Kidney failure: <15 mL/min/1.73sq m eGFR calculated using average adult body mass. Additional eGFR calculator available at: http://www.Meijob/multiple_crcl_2011.htm Performed By: #### H IVCMB, PHEP #### [facility] [address] [place] [address] Preschool Assistant Director: Dmo Fowler MD #### CP #### [facility] [address] [place] [address] Preschool Assistant Director: Shakeel Graham MD Albumin [Mass/Vol] 3.4 g/dL Low 3.5-5.2 [facility] [place] Comment on above: Performed By: #### H IVCMB, PHEP #### [address] [place] [address] Preschool Assistant Director: Dom Fowler MD #### CP #### [facility] [address] [place] [address] Preschool Assistant Director: Shakeel Graham MD Albumin/Globulin [Mass ratio] 1.5 {ratio} Normal 1.0-2.5 [facility] [place] Comment on above: Performed By: #### H IVCMB, PHEP #### [address] [place] [address] Preschool Assistant Director: Dom Fowler MD #### CP #### [facility] [address] [place] [address] Preschool Assistant Director: Shakeel Graham MD Alkaline Phos 40 U/L Normal 35-104 [facility] Comment on above: Performed By: #### H IVCMB, PHEP #### [address] [address] Preschool Assistant Director: Dom Fowler MD #### CP #### [facility] [address] [place], [place] [id number] Preschool Assistant Director: Shakeel Graham MD ALT [Catalytic activity/Vol] 12 U/L Normal 5-33 [facility] [place] Comment on above: Performed By: #### H IVCMB, PHEP #### [facility] [address] [place] [address] Preschool Assistant Director: Dom Fowler MD #### CP #### [facility] [address] [place], [place] [phone] Preschool Assistant Director: Shakeel Graham MD Anion gap [Moles/Vol] 9 mmol/L Normal 9-17 [facility] Comment on above: Performed By: #### H IVCMB, PHEP #### [facility] [address] [place] [address] Preschool Assistant Director: Dom Fowler MD #### CP #### [facility] [address] [place], [place] [id number] Preschool Assistant Director: Shakeel Graham MD AST [Catalytic activity/Vol] 12 U/L Normal <32 [facility] Comment on above: Performed By: #### H IVCMB, PHEP #### [facility] [address] [place] [address] Preschool Assistant Director: Dom Fowler MD #### CP #### [facility] [address] [place], [place] [phone] Preschool Assistant Director: Shakeel Graham MD BUN/CRE Ratio 26 High 9-20 [facility] Comment on above: Performed By: #### H IVCMB, PHEP #### [facility] [address] [place] [address] Preschool Assistant Director: Dom Fowler MD #### CP #### [facility] [address] [place], [place] [phone] Preschool Assistant Director: Shakeel Graham MD Calcium [Mass/Vol] 9.3 mg/dL Normal 8.6-10.4 [facility] Comment on above: Performed By: #### H IVCMB, PHEP #### [address] [address] Preschool Assistant Director: Dom Fowler MD #### CP #### [facility] [address] [place] [address] Dr[phone] Preschool Assistant Director: Shakeel Graham MD Chloride [Moles/Vol] 109 mmol/L High 98-107 [facility] Comment on above: Performed By: #### H IVCMB, PHEP #### [address] [address] Preschool Assistant Director: Dom Fowler MD #### CP #### [facility] [address] [place] [address] [phone] Preschool Assistant Director: Shakeel Graham MD CO2 [Moles/Vol] 26 mmol/L Normal 20-31 [facility] Comment on above: Performed By: #### H IVCMB, PHEP #### [address] [address] Preschool Assistant Director: Dom Fowler MD #### CP #### [address] [phone] Preschool Assistant Director: Shakeel Graham MD Creatinine [Mass/Vol] 0.57 mg/dL Normal 0.50-0.90 [facility] Comment on above: Performed By: #### H IVCMB, PHEP #### [address] [address] Preschool Assistant Director: Dom Fowler MD #### CP #### [facility] [address] [place] [address] [place], [place] [phone] Preschool Assistant Director: Shakeel Graham MD GFR, Amer >60 Normal >60 [facility] [place] Comment on above: Performed By: #### H IVCMB, PHEP #### [facility] [address] [place] [address] Preschool Assistant Director: Dom Fowler MD #### CP #### [facility] [address] [place], [place] [phone] Preschool Assistant Director: Shakeel Graham MD GFR,non Amer >60 Normal >60 [facility] Comment on above: Performed By: #### H IVCMB, PHEP #### [address] [address] Preschool Assistant Director: Dom Fowler MD #### CP #### [facility] [address] [place] [address] Dr. [place], [place] [phone] Preschool Assistant Director: Shakeel Graham MD Glucose [Mass/Vol] 92 mg/dL Normal 70-99 [facility] [place] Comment on above: Performed By: #### H IVCMB, PHEP #### [address] [address] Preschool Assistant Director: Dom Fowler MD #### CP #### [facility] [address] [place] [address] [place] [address] Preschool Assistant Director: Shakeel Graham MD Potassium [Moles/Vol] 3.8 mmol/L Normal 3.7-5.3 [facility] Comment on above: Performed By: #### H IVCMB, PHEP #### [facility] [address] [place] [address] Preschool Assistant Director: Dom Fowler MD #### CP #### [facility] [address] [place], [place] [id number] Preschool Assistant Director: Shakeel Graham MD Protein [Mass/Vol] 5.7 g/dL Low 6.4-8.3 [facility] Comment on above: Performed By: #### H IVCMB, PHEP #### [address] [address] Preschool Assistant Director: Dom Fowler MD #### CP #### [facility] [address] [place] [address] Preschool Assistant Director: Shakeel Graham MD Sodium [Moles/Vol] 144 mmol/L Normal 135-144 [facility] Comment on above: Performed By: #### H IVCMB, PHEP #### [address] [place] [address] Preschool Assistant Director: Dom Fowler MD #### CP #### [facility] [address] [place] [address] Preschool Assistant Director: Shakeel Graham MD Staging: Normal [facility] Comment on above: Result Comment: Stag e 1: Some kidney damage normal GFR Stage 2: Mild kidney damage GFR 60-89 Stage 3: Moderate kidney damage GFR 30-59 Stage 4: Severe kidney damage GFR 15-29 Stage 5: Severe kidney damage GFR <15 ESRD - chronic treatment by dialysis or transplant Performed By: #### H IVCMB, PHEP #### [facility] [address] [place] [address] Preschool Assistant Director: Dom Fowler MD #### CP #### [address] [place] [address] Preschool Assistant Director: Shakeel Graham MD Urea nitrogen [Mass/Vol] 15 mg/dL Normal 6-20 [facility] Comment on above: Performed By: #### H IVCMB, PHEP #### [facility] [address] [place] [address] Preschool Assistant Director: Dom Fowler MD #### CP #### [address] [place] [address] Preschool Assistant Director: Shakeel Graham MD [facility] 04-26-2020 Albumin [Mass/Vol] 3.4 g/dL Low 3.5 - 5.2 g/dL [place] Albumin/Globulin [Mass ratio] 1.5 {ratio} [place], [place] ALP [Catalytic activity/Vol] 40 U/L 35 - 104 U/L [place] ALT [Catalytic activity/Vol] 12 U/L 5 - 33 U/L [place] Anion gap [Moles/Vol] 9 mmol/L 9 - 17 mmol/L [place] AST [Catalytic activity/Vol] 12 U/L <32 [place] Bilirubin Ql (U) <0.10 Low 0.3 - 1.2 mg/dL [place] Bun/Cre Ratio 26 [place] Calcium [Mass/Vol] 9.3 mg/dL 8.6 - 10. 4 mg/dL [place] Chloride [Moles/Vol] 109 mmol/L High 98 - 107 mmol/L [place] CO2 [Moles/Vol] 26 mmol/L 20 - 31 mmol/L [place] Creatinine [Mass/Vol] 0.57 mg/dL 0.5 - 0.9 mg/dL [place] GFR >60 >60 mL/min [place] GFR Non- >60 >60 mL/min [place] Glucose [Mass/Vol] 92 mg/dL 70 - 99 mg/dL [place] Interpretation and review of laboratory results Abnormal [place] Potassium [Moles/Vol] 3.8 mmol/L 3.7 - 5.3 mmol/L [place] Protein [Mass/Vol] 5.7 g/dL Low 6.4 - 8.3 g/dL [place], [place] Sodium [Moles/Vol] 144 mmol/L 135 - 144 mmol/L [place] Urea nitrogen [Mass/Vol] 15 mg/dL 6 - 20 mg/dL [place] HCG Qualitative, Serumon hCG Qual Negative NEGATIVE [place] Comment on above: Specimens with hCG l evels near the threshold of the test (25 mIU/mL) may give a negative or indeterminate result. In such cases, another test should be performed with a new specimen in 48-72 hours. If early is suspected clinically in this setting, correlation with quantitative serum b-hCG level is suggested. [facility] has confirmed the use of plasma for this test. This has not been cleared or approved by the U.S. Food and Drug Administration. The FDA has determined that such clearance is not necessary. HCG Screen, Bloodon 04-26-20 20 HCG Qn Negative Normal NEG [facility] Comment on above: Result Comment: Spec imens with hCG levels near the threshold of the test (25 mIU/mL) may give a negative or indeterminate result. In such cases, another test should be performed with a new specimen in 48-72 hours. If early is suspected clinically in this setting, correlation with quantitative serum b-hCG level is suggested. [employer] has confirmed the use of plasma for this test. This has not been cleared or approved by the U.S. Food and Drug Administration. The FDA has determined that such clearance is not necessary. Performed By: #### H IVCMB, PHEP #### [facility] [address] [place], [place] [id number] Preschool Assistant Director: Dom Fowler MD #### CP #### [facility] [address] [place] [address] [place] [address] Preschool Assistant Director: Shakeel Graham MD HIV Ag/Abon 04-26-2020 HIV Ag/Ab NONREACTIVE Normal NR [facility] Comment on above: Result Comment: No l aboratory evidence of HIV infection. If acute HIV infection is suspected, consider testing for HIV-1 RNA. Performed By: #### H IVCMB, PHEP #### [facility] [address] [place] [address] Preschool Assistant Director: Dom Fowler MD #### CP #### [facility] [address] [place] [address] Preschool Assistant Director: Shakeel Graham MD HIV Screenon 04-26-2020 HIV Ag/Ab NONREACTIVE NONREACTIVE [facility] [place] Comment on above: No laboratory eviden ce of HIV infection. If acute HIV infection is suspected, consider testing for HIV-1 RNA. Hepatitis Acute [facility] 04-26 Hep A Ab,IgM NONREACTIVE Normal NR [facility] Comment on above: Performed By: #### H IVCMB, PHEP #### [facility] [address] [place] [address] Preschool Assistant Director: Dom Fowler MD #### CP #### [facility] [address] [place] [address] [place] [address] Preschool Assistant Director: Shakeel Graham MD Hep B Core Ab,IgM NONREACTIVE Normal [facility] Comment on above: Performed By: #### H IVCMB, PHEP #### [facility] [address] [place] [address] Preschool Assistant Director: Dom Fowler MD #### CP #### [address] [place] [address] Preschool Assistant Director: Shakeel Graham MD Hep B Surf Ag NONREACTIVE Normal [facility] Comment on above: Performed By: #### H IVCMB, PHEP #### [address] [address] Preschool Assistant Director: Dom Fowler MD #### CP #### [facility] [address] [place] [address] [place] [address] Preschool Assistant Director: Shakeel Graham MD Hep C Ab REACTIVE Abnormal [facility] Comment on above: Result Comment: The [...] Performed By: #### H IVCMB, PHEP #### [facility] [address] [place] [address] Preschool Assistant Director: Dom Fowler MD #### CP #### [facility] [address] [place] [address] Preschool Assistant Director: Shakeel Graham MD Hepatitis Panel, Acuteon HAV IgM IA Qn (S) NONREACTIVE NONREACTIVE [place] Hep B Core Ab, IgM NONREACTIVE NONREACTIVE [place] Hepatitis B Surface Ag NONREACTIVE NONREACTIVE [place] Hepatitis C Ab REACTIVE Abnormal NONREACTIVE [place] Comment on above: The hepatitis C [...] Interpretation and review of laboratory results Abnormal [place] Metabolic Panelon 04-26-2020 GFR/1.73 sq M predicted among non-blacks MDRD (S/P/Bld) [Vol rate/Area] [place] Comment on above: Stage 1: Some [...] body mass. Additional eGFR calculator available at: http://www.Validus-IVC.Teladoc/multiple_crcl_2012.htm Microscopic Urinalysison Amorphous, UA NOT REPORTED None [place] Bacteria, UA NOT REPORTED None [place], [place] Casts UA NOT REPORTED /LPF [place], [place] Crystals, UA 5 TO 10 Abnormal None /HPF [place] Crystals, UA CALCIUM OXALATE Abnormal None /HPF [place] Epithelial Cells UA 0 TO 2 [place] Interpretation and review of laboratory results Abnormal [place] Mucus, UA TRACE Abnormal None [place] Other Observations UA NOT REPORTED NOT REQ. [place] RBC (U) [#/Vol] None [facility] [place] Renal Epithelial, UA NOT REPORTED 0 /HPF [place] Trichomonas, UA NOT REPORTED None [facility] [place] WBC, UA 0 TO 2 [place] Yeast, UA NOT REPORTED None [place], [place] - [place] UA w/Reflex Cultureon 2019 Acetoacetic Acid,Ur Negative Normal NEG [facility] Comment on above: Performed By: #### H IVCMB, PHEP #### [address] [address] Preschool Assistant Director: Dom Fowler MD #### CP #### [address] [place] [id number] Preschool Assistant Director: Shakeel Graham MD Bilirubin, SemiQt,Ur Negative Normal [facility] Comment on above: Performed By: #### H IVCMB, PHEP #### [address] [address] Preschool Assistant Director: Dom Fowler MD #### CP #### [address] [place] [id number] Preschool Assistant Director: Shakeel Graham MD Color (U) YELLOW Normal [facility] Comment on above: Performed By: #### H IVCMB, PHEP #### [address] [address] Preschool Assistant Director: Dom Fowler MD #### CP #### [facility] [address] [place] [address] [place] [address] Preschool Assistant Director: Shakeel Graham MD Glucose Ql (U) Negative Normal NEG [facility] Comment on above: Performed By: #### H IVCMB, PHEP #### [address] [address] Preschool Assistant Director: Dom Fowler MD #### CP #### [facility] [address] [place] [address] Dr. [place], [place] [phone] Preschool Assistant Director: Shakeel Graham MD Hemoglobin, Ur Negative Normal NEG [facility] Comment on above: Performed By: #### H IVCMB, PHEP #### [address] [address] Preschool Assistant Director: Dom Fowler MD #### CP #### [address] [place] [address] Preschool Assistant Director: Shakeel Graham MD Leukocyte esterase Test strip Ql (U) Negative Normal NEG [facility] Comment on above: Performed By: #### H IVCMB, PHEP #### [address] [address] Preschool Assistant Director: Dom Fowler MD #### CP #### [address] [place] [address] Preschool Assistant Director: Shakeel Graham MD Nitrite,Ur Negative Normal NEG [facility] Comment on above: Performed By: #### H IVCMB, PHEP #### [address] [address] Preschool Assistant Director: Dom Fowler MD #### CP #### [address] [place] [address] Preschool Assistant Director: Shakeel Graham MD pH (U) 6.5 [pH] Normal 5.0-9.0 [facility] Comment on above: Performed By: #### H IVCMB, PHEP #### [address] [address] Preschool Assistant Director: Dom Fowler MD #### CP #### [facility] [address] [place] [address] Preschool Assistant Director: Shakeel Graham MD Protein Ql (U) Negative Normal NEG [facility] Comment on above: Performed By: #### H IVCMB, PHEP #### [facility] [address] [place] [address] Preschool Assistant Director: Dom Fowler MD #### CP #### [address] [place] [address] Preschool Assistant Director: Shakeel Graham MD Specific gravity (U) [Rel density] 1.025 High 1.010-1.020 [facility] Comment on above: Performed By: #### H IVCMB, PHEP #### [facility] [address] [place] [address] Preschool Assistant Director: Dom Fowler MD #### CP #### [address] [place] [address] Preschool Assistant Director: Shakeel Graham MD Turbidity CLEAR Normal CLEAR [facility] Comment on above: Performed By: #### H IVCMB, PHEP #### [address] [address] Preschool Assistant Director: Dom Fowler MD #### CP #### [address] [place] [address] Preschool Assistant Director: Shakeel Graham MD Urobilinogen,Ur Normal Normal NORM [facility] Comment on above: Performed By: #### H IVCMB, PHEP #### [address] [address] Preschool Assistant Director: Dom Fowler MD #### CP #### [address] [place] [address] Preschool Assistant Director: Shakeel Graham MD Comment NOT REPORTED Normal [facility] Comment on above: Performed By: #### H IVCMB, PHEP #### [facility] [address] [place] [address] Preschool Assistant Director: Dom Fowler MD #### CP #### [address] [place] [address] Preschool Assistant Director: Shakeel Graham MD Urinalysis Reflex to Culture on 04-26-2020 Bilirubin Urine Negative NEGATIVE [facility], [place] Color, UA YELLOW YELLOW [facility], [place] Glucose, Ur Negative NEGATIVE [facility], [place] Interpretation and review of laboratory results Abnormal [place] Ketones Ql (U) Negative NEGATIVE [facility], [place] Leukocyte esterase Test strip Ql (U) Negative NEGATIVE [facility], [place] Nitrite, Urine Negative NEGATIVE [facility], [place] pH, UA 6.5 [place], [place] Protein (U) [Mass/Vol] Negative NEGATIVE [facility], [place] Specific [place], UA 1.025 [facility], [place] Turbidity UA CLEAR CLEAR [place], [place] Urinalysis Comments NOT REPORTED [facility], [place] Urine Hgb Negative NEGATIVE [facility], [place] Urobilinogen, Urine Normal Normal [place] Urinalysis,Microon 0 ----- Normal [facility] Comment on above: Performed By: #### H IVCMB, PHEP #### [address] [place] [address] Preschool Assistant Director: Dom Fowler MD #### CP #### [address] [place] [address] Preschool Assistant Director: Shakeel Graham MD Crystals LM Nom (Urine sed) CALCIUM OXALATE Abnormal NONE [facility] Comment on above: Result Comment: 5 TO 10 Performed By: #### H IVCMB, PHEP #### [facility] [address] [place] [address] Preschool Assistant Director: Dom Fowler MD #### CP #### [facility] [address] [place] [address] Preschool Assistant Director: Shakeel Graham MD Epithelial cells LM.HPF (Urine sed) [#/Area] 0 TO 2 Normal 0-25 [facility] Comment on above: Performed By: #### H IVCMB, PHEP #### [address] [address] Preschool Assistant Director: Dom Fowler MD #### CP #### [address] [place], [place] [id number] Preschool Assistant Director: Shakeel Graham MD Mucus Strands TRACE Abnormal [facility] Comment on above: Performed By: #### H IVCMB, PHEP #### [address] [address] Preschool Assistant Director: Dom Fowler MD #### CP #### [address] [place] [id number] Preschool Assistant Director: Shakeel Graham MD RBC (U) [#/Vol] None Normal 0-2 [facility] Comment on above: Performed By: #### H IVCMB, PHEP #### [address] [address] Preschool Assistant Director: Dom Fowler MD #### CP #### [address] [place] [address] Preschool Assistant Director: Shakeel Graham MD WBC (U) [#/Vol] 0 TO 2 Normal 0-5 [facility] Comment on above: Performed By: #### H IVCMB, PHEP #### [address] [address] Preschool Assistant Director: Dom Fowler MD #### CP #### [address] [place], [place] [id number] Preschool Assistant Director: Shakeel Graham MD Amorphous sediment LM Ql (Urine sed) NOT REPORTED Normal [facility] Comment on above: Performed By: #### H IVCMB, PHEP #### [address] [address] Preschool Assistant Director: Dom Fowler MD #### CP #### [facility] [address] [place] [address] Preschool Assistant Director: Shakeel Graham MD Bacteria LM.HPF (Urine sed) [#/Area] NOT REPORTED Normal NONE [facility] Comment on above: Performed By: #### H IVCMB, PHEP #### [address] [address] Preschool Assistant Director: Dom Fowler MD #### CP #### [address] [place] [address] Preschool Assistant Director: Shakeel Graham MD Casts LM.LPF (Urine sed) [#/Area] NOT REPORTED Normal [facility] Comment on above: Performed By: #### H IVCMB, PHEP #### [address] [address] Preschool Assistant Director: Dom Fowler MD #### CP #### [address] [place] [address] Preschool Assistant Director: Shakeel Graham MD Epithelial, Renal NOT REPORTED Normal 0 [facility] Comment on above: Performed By: #### H IVCMB, PHEP #### [address] [address] Preschool Assistant Director: Dom Fowler MD #### CP #### [address] [place] [address] Preschool Assistant Director: Shakeel Graham MD Other Observations NOT REPORTED Normal NREQ [facility] Comment on above: Performed By: #### H IVCMB, PHEP #### [address] [address] Preschool Assistant Director: Dom Fowler MD #### CP #### [facility] [address] [place], [place] 2188483 Preschool Assistant Director: Shakeel Graham MD Trichomonas NOT REPORTED Normal NONE [facility] Comment on above: Performed By: #### H IVCMB, PHEP #### [facility] [address] [place], [place] [id number] Preschool Assistant Director: Dom oFwler MD #### CP #### [facility] [address] [place] 8991983 Preschool Assistant Director: Shakeel Graham MD Yeast LM Ql (Urine sed) NOT REPORTED Normal NONE [facility] Comment on above: Performed By: #### H IVCMB, PHEP #### [facility] [address] [place], [place] [phone] Preschool Assistant Director: Dom Fowler MD #### CP #### [facility] [address] [place] [address] Dr. [place] [id number] Preschool Assistant Director: Shakeel Graham MD ED Clinical Summaryon 2019 ED Clinical Summary [address] [address] ED Clinical Summary Person Information Name: Kathryn Ervin/[facility] Age: 25 Years : 1995 Sex: Female PCP: Marital Status: Single Phone: Race: White Ethnicity: Not or Language: Kinyarwanda Visit Reason: Drug withdrawal; Drug withdrawal Acuity: 3 Enc Type: Emergency Med Service: Emergency Medicine Arrival: 03/16/2020 20:10:45 Discharge: 03/17/2020 02:12:00 LOS: 000 06:02 Checkin: 03/16/2020 20:10:45 Checkout: 03/17/2020 02:12:00 Dispo Type: Home or Self Care Address: [address] [place] [address] Provider Notes: Diagnosis: 1:Affective disorder; 2:Drug usage [...] range between ( 27.2 and 40.8 ) [place] Auto: 11.4 % -- Normal range between [...] range between ( 36.0 and 46.0 ) [place] Absolute: 1.5 x10 MCH: 27.4 pg -- [...] 03/16/2020 20:20:41 Follow up: With: Address: When: [facility] In [place], [place] Within 1 to 2 days Discharge Orders: Discharge Patient 03/17/20 1:45:00 EDT, Discharge to Home, Self Patient Education Information: Understanding Methamphetamine Abuse and Addiction; Treating Affective (Mood) Disorders [facility] Poison Help line: . [facility] Mental Health Hotline: [place] Tobacco Quit Line: [place], [place]) [address]: [phone] [place], [place]) [address]: [phone] [facility] [address], [place]: [phone] Normal [facility] hCG Quantitativeon 0 Beta hCG Qnt 1.7 mIU/mL Normal 0.0-4.9 [facility] Comment on above: Result Comment: 0.0 - 4.9 Negative for 5.0 - 25.0 Indeterminant for : Suggest repeat in 72 hours. >25.0 Positive for Performed By: #### H CG ####[place] [address] .UA Microscp Aon 03-16-2020 UA Hyline Cast Qual >20 Abnormal Negative [facility] Comment on above: Performed By: #### C [id number] ####[place] [address] UA Mucus Present Abnormal Absent [facility] Comment on above: Performed By: #### C [id number] ####[place] [id number] UA RBC Quant 12 /HPF High 0-5 [facility] Comment on above: Performed By: #### C [id number] ####[address] [address] UA Squepi Cells Quant 6 /HPF Normal 0-29 [facility] Comment on above: Performed By: #### C [id number] ####[address] [address] UA WBC Quant 7 /HPF High 0-5 [facility] Comment on above: Performed By: #### C [id number] ####[facility] [place] [address] .eGFRon 03-16-2020 eGFR AA 52 mL/min/1.73m? Low >=60 [facility] Comment on above: Result Comment: Resu lt = 0-14.9 mL/min/1.73 m2 Kidney failure or Dialysis Result = 15-29 mL/min/1.73 m2 Severe decrease in GFR Result = 30-59 mL/min/1.73 m2 Moderate decrease in GFR Result >= 60 mL/min/1.73 m2 Normal or increased GFR Performed By: #### E GFR #### [address] [address] eGFR Non-AA 43 mL/min/1.73m? Low >=60 [facility] Comment on above: Result Comment: Resu [...] dosing. Performed By: #### E GFR #### [address] [address] CBC w/ Diffon 03-16-2020 Erythrocyte distribution width (RBC) [Ratio] 15.9 % High 11.6-14.8 [facility] Comment on above: Performed By: #### C BC #### [address] [address] Hematocrit (Bld) [Volume fraction] 37.5 % Normal 36.0-46.0 [facility] Comment on above: Performed By: #### C BC #### [address] [address] Hemoglobin (Bld) [Mass/Vol] 12.5 g/dL Normal 12.0-16.0 [facility] Comment on above: Performed By: #### C BC #### [address] [address] MCH (RBC) [Entitic mass] 27.4 pg Normal 27.0-35.0 [facility] Comment on above: Performed By: #### C BC #### [address] [address] MCHC (RBC) [Mass/Vol] 33.2 % Normal 31.0-37.0 [facility] Comment on above: Performed By: #### C BC #### [address] [address] MCV (RBC) [Entitic vol] 82.4 fL Normal 80.0-100.0 [facility] Comment on above: Performed By: #### C BC #### [address] [address] Platelet mean volume (Bld) [Entitic vol] 9.4 fL Normal 6.7-10.6 [facility] Comment on above: Performed By: #### C BC #### [address] [address] Platelets (Bld) [#/Vol] 307 x10*3/mcL Normal 150-350 [facility] Comment on above: Performed By: #### C BC #### [address] [address] RBC (Bld) [#/Vol] 4.55 x10*6/mcL Normal 3.80-5.20 [facility] Comment on above: Performed By: #### C BC #### [address] [address] WBC (Bld) [#/Vol] 12.9 x10*3/mcL High 4.5-11.0 [facility] Comment on above: Performed By: #### C BC #### [address] [address] CMPon 03-16-2020 Albumin [Mass/Vol] 5.2 g/dL High 3.2-4.9 [facility] Comment on above: Result Comment: [facility] Laboratory updated the methodology used for albumin testing on 04/24/18. Albumin measurement was performed using a bromcresol purple dye-binding assay. Performed By: #### C OMP #### [address] [address] Albumin/Globulin [Mass ratio] 1.5 {ratio} Normal 1.1-2.2 [facility] Comment on above: Performed By: #### C OMP #### [address] [address] Alk Phos 47 IU/L Normal 32-91 [facility] Comment on above: Performed By: #### C OMP #### [address] [address] ALT [Catalytic activity/Vol] 19 U/L Normal 14-54 [facility] Comment on above: Performed By: #### C OMP #### [address] [address] Anion gap [Moles/Vol] 22 mmol/L High 7-17 [facility] Comment on above: Performed By: #### C OMP #### [address] [address] AST [Catalytic activity/Vol] 31 U/L Normal 15-41 [facility] Comment on above: Performed By: #### C OMP #### [address] [place] [address] Bili Total 1.4 mg/dL High 0.3-1.2 [facility] Comment on above: Performed By: #### C OMP #### [address] [address] Calcium [Mass/Vol] 10.2 mg/dL Normal 8.5-10.3 [facility] Comment on above: Performed By: #### C OMP #### [address] [address] Chloride [Moles/Vol] 100 mmol/L Normal 98-110 [facility] Comment on above: Performed By: #### C OMP #### [address] [address] CO2 [Moles/Vol] 19 mmol/L Low 22-32 [facility] Comment on above: Performed By: #### C OMP #### [address] [address] Creatinine [Mass/Vol] 1.47 mg/dL High 0.44-1.03 [facility] Comment on above: Performed By: #### C OMP #### [address] [address] Glucose [Mass/Vol] 85 mg/dL Normal 70-99 [facility] Comment on above: Performed By: #### C OMP #### [address] [address] Potassium [Moles/Vol] 3.7 mmol/L Normal 3.4-4.8 [facility] Comment on above: Performed By: #### C OMP #### [address] [address] Protein [Mass/Vol] 8.7 g/dL High 6.5-8.1 [facility] Comment on above: Performed By: #### C OMP #### [address] [address] Sodium [Moles/Vol] 137 mmol/L Normal 133-142 [facility] Comment on above: Performed By: #### C OMP #### [address] [address] Urea nitrogen [Mass/Vol] 25 mg/dL Normal 8-26 [facility] Comment on above: Performed By: #### C OMP #### [address] [address] Urea nitrogen/Creatinine [Mass ratio] 17.0 mg/mg Normal 10.0-20.0 [facility] Comment on above: Performed By: #### C OMP #### [address] [address] CPKon 03-16-2020 Creatine Phosphokinase 439 IU/L High 38-234 [facility] Comment on above: Performed By: #### C P #### [address] [address] Diff Autoon 03-16-2020 Baso Absolute 0.0 x10*3/mcL Normal 0.0-0.2 [facility] Comment on above: Performed By: #### . Automated Diff #### [address] [address] Basophils/100 WBC (Bld) 0.4 % Normal 0.0-1.5 [facility] Comment on above: Performed By: #### . Automated Diff #### [address] [address] Eos Absolute 0.0 x10*3/mcL Normal 0.0-0.4 [facility] Comment on above: Performed By: #### . Automated Diff #### [address] [address] Eosinophils/100 WBC (Bld) 0.1 % Normal 0.0-5.4 [facility] Comment on above: Performed By: #### . Automated Diff #### [address] [address] Lymphocytes (Bld) [#/Vol] 1.4 x10*3/mcL Normal 1.0-4.8 [facility] Comment on above: Performed By: #### . Automated Diff #### [address] [address] Lymphocytes/100 WBC (Bld) 10.8 % Low 27.2-40.8 [facility] Comment on above: Performed By: #### . Automated Diff #### [address] [address] Clay Absolute 1.5 x10*3/mcL High 0.1-1.1 [facility] Comment on above: Performed By: #### . Automated Diff #### [facility] [address] [place] [address] Monocytes/100 WBC (Bld) 11.4 % Normal 3.7-11.9 [facility] Comment on above: Performed By: #### . Automated Diff #### [facility] [address] [place] [address] Neutro Absolute 10.0 x10*3/mcL High 1.8-7.7 [facility] Comment on above: Performed By: #### . Automated Diff #### [facility] [address] [place] [address] Neutro Auto 77.3 % High 47.2-70.8 [facility] Comment on above: Performed By: #### . Automated Diff #### [address] [address] ED Note-Nursingon 03-16-2020 ED Note-Nursing Lab called about add ons Electronically signed by Barbara Holman 03/16/20 20:49 EDT Normal [facility] ED Note-Physicianon 03-16-20 ED Note-Physician Chief [...] that she has residential set up at [facility] in [place], [place] but she has to detox first. [...] as well. She was seen by Alonso, delinquency prevention social worker who has arranged for her to go to [facility] tomorrow as patient is interested in treatment. Verbally contracted to safety and filled out a safety plan. Alonso with social work spoke with director of transportation, Jelena who will arrange for further follow-up when they arrive tomorrow. Family is agreeable with plan. Patient has good support. They will return if any changes of symptoms or concern. Silvia Castañeda scribing for and in the presence of Dr. Cornell. Scribe Attestation: The information in this document, created by the medical policy specialist for me, accurately reflects the services I [...] High Lymph Auto 03/16/20 20:39 10.8 Low Clay Auto 03/16/20 20:39 11.4 Eos Auto 03/16/20 20:39 0.1 Basophil Auto 03/16/20 20:39 0.4 Neutro Absolute 03/16/20 20:39 10.0 High Lymph Absolute 03/16/20 20:39 1.4 Clay Absolute 03/16/20 20:39 1.5 High Eos Absolute [...] Lima Cornell MD 03/17/2020 04:16 EDT Normal [facility] Ethanolon 03-16-2020 Ethanol [Mass/Vol] mg/dL Normal <=9 [facility] Comment on above: Result Comment: To c onvert mg/dL to g/dL, divide result by 1,000. Legal limit of intoxication is 80 mg/dL (0.08 g/dL). Performed By: #### A LC #### [address] [address] UA w Culture if Indon 2019 Color (U) Terri Normal [facility] Comment on above: Performed By: #### U CI #### [address] [address] Glucose (U) [Mass/Vol] Negative Normal Negative [facility] Comment on above: Performed By: #### U CI #### [address] [address] Ketones Ql (U) 20 mg/dL Abnormal Negative [facility] Comment on above: Performed By: #### U CI #### [address] [address] UA Blood Small Abnormal Negative [facility] Comment on above: Performed By: #### U CI #### [address] [address] UA Clarity Cloudy Normal [facility] Comment on above: Performed By: #### U CI #### [address] [address] UA Leukocyte Esterase Trace Abnormal Negative [facility] Comment on above: Performed By: #### U CI #### [address] [address] UA Nitrite Negative Normal Negative [facility] Comment on above: Performed By: #### U CI #### [address] [address] UA pH 5.0 Normal 4.5 - 7.8 [facility] Comment on above: Performed By: #### U CI #### [address] [address] UA Protein 100 mg/dL Abnormal Negative [facility] Comment on above: Performed By: #### U CI #### [address] [address] UA Source Clean Catch Normal [facility] Comment on above: Performed By: #### U CI #### [address] [address] UA Spec Grav 1.025 Normal 1.003-1.035 [facility] Comment on above: Performed By: #### U CI #### [address] [address] UA Urobilinogen 0.2 mg/dL Normal 0.2 - 1.0 [facility] Comment on above: Performed By: #### U CI #### [place] [id number] Urobilinogen Qn (U) Small Abnormal Negative [facility] Comment on above: Performed By: #### U CI #### [address] [address] UDS Compon 03-16-2020 Creatinine [Mass/Vol] mg/dL Normal [facility] Comment on above: Performed By: #### C [id number] #### [address] [address] Ur Amph Scrn Positive Abnormal NEG = <1000 [facility] Comment on above: Result Comment: This unconfirmed positive screening result is to be used for medical treatment purposes only. Unconfirmed screening results must not be used for non-medical purposes. (e.g. employment testing, legal testing). Performed By: #### C [id number] #### [address] [address] Ur Anastasia Scrn Negative Normal NEG = <200 [facility] Comment on above: Performed By: #### C [id number] #### [facility] [address] [place] [address] Ur Benzodia Scrn Negative Normal NEG = <200 [facility] Comment on above: Performed By: #### C [id number] #### [facility] [address] [place] [address] Ur Cannab Scrn Negative Normal NEG = <50 [facility] Comment on above: Performed By: #### C [id number] #### [facility] [address] [place] [address] [place] [address] Ur Cocaine Scrn Negative Normal NEG = <300 [facility] Comment on above: Performed By: #### C [id number] #### [address] [place] [address] Ur Methadone Scn Negative Normal NEG = <300 [facility] Comment on above: Performed By: #### C [id number] #### [address] [place] [address] Ur Opiate Scrn Negative Normal NEG = <300 [facility] Comment on above: Performed By: #### C [id number] #### [facility] [address] [place] [address], [place] [address] Ur Oxy Screen Negative Normal NEG = <100 [facility] Comment on above: Performed By: #### C [id number] #### [facility] [address] [place] [address] [place] [address] Ur Oxy Scrn Qnt 54 ng/mL Normal <=99 [facility] Comment on above: Performed By: #### C [id number] #### [facility] [address] [place] [address] [place] [address] Ur PCP Scrn Negative Normal NEG = <25 [facility] Comment on above: Performed By: #### C [id number] #### [address] [place] [address] UA pH 5.0 Normal 4.5 - 7.8 [facility] Comment on above: Performed By: #### C [id number] #### [facility] [address] [place] [address] UA Spec Grav 1.024 Normal 1.003-1.035 [facility] Comment on above: Performed By: #### C [id number] #### [facility] [address] [place] [address] Chlamydia/GC DNA, Uron 11-23 Chlamydia Probe, Ur Negative Normal NEG [facility] Comment on above: Result Comment: CHLA MYDIA [...] Performed By: #### H IVCMB, PHEP #### [address] [id number] Preschool Assistant Director: Dom Fowler MD #### CP #### [facility] [address] [place], [facility] Preschool Assistant Director: Shakeel Graham MD Gonorrhea Probe, Ur Negative Normal NEG [facility] Comment on above: Result Comment: NEIS SERIA [...] Performed By: #### H IVCMB, PHEP #### [place] [address] [place], [place] [id number] Preschool Assistant Director: Dom Fowler MD #### CP #### [facility] [address] [place] [address] Preschool Assistant Director: Shakeel Graham MD Cult,Urineon 11-22-2019 Cult,Urine Specimen Description .VOIDED URINE Special Requests NOT REPORTED Culture NO SIGNIFICANT GROWTH Report Status FINAL 11/22/2019 Normal [facility] Comment on above: Performed By: #### H IVCMB, PHEP #### [facility] [address] [place] [address] Preschool Assistant Director: Dom Fowler MD #### CP #### [facility] [address] [place] [address] Preschool Assistant Director: Shakeel Graham MD HIV Ag/Abon 11-21-2019 HIV Ag/Ab NONREACTIVE Normal NR [facility] Comment on above: Result Comment: No l aboratory evidence of HIV infection. If acute HIV infection is suspected, consider testing for HIV-1 RNA. Performed By: #### H IVCMB, PHEP #### [place] [place] [address] Preschool Assistant Director: Dom Fowler MD #### CP #### [facility] [address] [address] Preschool Assistant Director: Shakeel Graham MD HIV Screenon 11-21-2019 HIV Ag/Ab NONREACTIVE NONREACTIVE [place], [place] Comment on above: No laboratory eviden ce of HIV infection. If acute HIV infection is suspected, consider testing for HIV-1 RNA. Hep C Abon 11-21-2019 Hep C Ab REACTIVE Abnormal NR [facility] Comment on above: Result Comment: The hepatitis [...] Performed By: #### H IVCMB, PHEP #### [facility] [address] [place] [address] Preschool Assistant Director: Dom Fowler MD #### CP #### [facility] [address] [place] [address] [place] [address] Preschool Assistant Director: Shakeel Graham MD Profileon 0 Hep B Surf Ag NONREACTIVE Normal NR [facility] Comment on above: Performed By: #### H IVCMB, PHEP #### [place] [address] [place] [address] Preschool Assistant Director: Dom Fowler MD #### CP #### [address] [place] [address] Preschool Assistant Director: Shakeel Graham MD T.pallidum Ab Screen NONREACTIVE Normal NR [facility] Comment on above: Result Comment: T. pallidum antibodies are not detected. There is no serological evidence of infection with T. pallidum (early primary syphilis cannot be excluded). Retest in 2-4 weeks if syphilis is clinically suspect. Performed By: #### H IVCMB, PHEP #### [address] [address] Preschool Assistant Director: Dom Fowler MD #### CP #### [address] [place], [place] [id number] Preschool Assistant Director: Shakeel Graham MD Rubella Ab, IgG 323.1 IU/mL Normal [facility] Comment on above: Result Comment: REFERENCE RANGE: <5.0 NON-REACTIVE (non-immune) 5.0 TO 9.9 EQUIVOCAL >=10.0 REACTIVE (immune) Performed By: #### H IVCMB, PHEP #### [address] [address] Preschool Assistant Director: Dom Fowler MD #### CP #### [address] [place], [place] [id number] Preschool Assistant Director: Shakeel Graham MD HCG, Quanton 11-20-2019 HCG, Quant [address]188 IU/L High <5 [facility] Comment on above: Result Comment: Non-preg premeno [...] Performed By: #### H IVCMB, PHEP #### [facility] [address] [place] [address] Preschool Assistant Director: Dom Fowler MD #### CP #### [facility] [address] [address] Preschool Assistant Director: Shakeel Graham MD HCG, Quantitative, on 11-20-2019 hCG Quant 22679 High <5 IU/L [place], [place] Comment on above: Non-preg premeno <=5 Postmeno <=8 Male <=3 If HCG results do not concur with clinical observations, additional testing to confirm results is recommended. Elevated results not associated with may be found in patients with other diseases such as tumors of the germ cells (testis, ovaries, etc.), bladder, pancreas, stomach, lungs, and liver. Interpretation and review of laboratory results Abnormal [place], [place] Hepatitis C Antibodyon 11-19 Hepatitis C Ab REACTIVE Abnormal NONREACTIVE [place], [place] Comment on above: The hepatitis C [...] Interpretation and review of laboratory results Abnormal [place], [place] TYPE AND SCREENon 0 11-20-2019 ABO/Rh Positive [place], [place] Profileon 0 Abs. Basophil 0.03 k/uL Normal 0.00-0.20 [facility] Comment on above: Performed By: #### H IVCMB, PHEP #### [facility] [address] [place] [address] Preschool Assistant Director: Dom Fowler MD #### CP #### [facility] [address] [place] [address] Dr. [place] [id number] ( Preschool Assistant Director: Shakeel Graham MD Abs.Imm.Granulocyte <0.03 Normal 0.00-0.30 [facility] Comment on above: Performed By: #### H IVCMB, PHEP #### [place] [address] Preschool Assistant Director: Dom Fowler MD #### CP #### [address] [place] [id number] ( Preschool Assistant Director: Shakeel Graham MD Abs.Neutrophil (Seg) 2.95 k/uL Normal 1.50-8.10 [facility] Comment on above: Performed By: #### H IVCMB, PHEP #### [place] [address] Preschool Assistant Director: Dom Fowler MD #### CP #### [address] [place] [id number] ( Preschool Assistant Director: Shakeel Graham MD Basophils/100 WBC (Bld) 1 % Normal 0-2 [facility] Comment on above: Performed By: #### H IVCMB, PHEP #### [place] [address] Preschool Assistant Director: Dom Fowler MD #### CP #### [facility] [address] [place] [address] [place] [address] Preschool Assistant Director: Shakeel Graham MD Eosinophils (Bld) [#/Vol] 0.09 10*3/uL Normal 0.00-0.44 [facility] Comment on above: Performed By: #### H IVCMB, PHEP #### [address] [address] Preschool Assistant Director: Dom Fowler MD #### CP #### [address] [place], [place] [id number] Preschool Assistant Director: Shakeel Graham MD Eosinophils/100 WBC (Bld) 2 % Normal 1-4 [facility] Comment on above: Performed By: #### H IVCMB, PHEP #### [address] [address] Preschool Assistant Director: Dom Fowler MD #### CP #### [address] [place], [place] 5377583 Preschool Assistant Director: Shakeel Graham MD Erythrocyte distribution width (RBC) [Ratio] 14.0 % Normal 11.8-14.4 [facility] Comment on above: Performed By: #### H IVCMB, PHEP #### [address] [id number] Preschool Assistant Director: Dom Fowler MD #### CP #### [address] [place], [place] [id number] Preschool Assistant Director: Shakeel Graham MD Hematocrit (Bld) [Volume fraction] 37.7 % Normal 36.3-47.1 [facility] Comment on above: Performed By: #### H IVCMB, PHEP #### [address] [address] Preschool Assistant Director: Dom Fowler MD #### CP #### [address] [place], [place] 876[address]83 Preschool Assistant Director: Shakeel Graham MD Hemoglobin (Bld) [Mass/Vol] 11.8 g/dL Low 11.9-15.1 [facility] Comment on above: Performed By: #### H IVCMB, PHEP #### [address] [address] Preschool Assistant Director: Dom Fowler MD #### CP #### [address] [place] [id number] Preschool Assistant Director: Shakeel Graham MD Immature granulocytes (Bld) [#/Vol] 0 % Normal 0 [facility] Comment on above: Performed By: #### H IVCMB, PHEP #### [address] [address] Preschool Assistant Director: Dom Fowler MD #### CP #### [facility] [address] [place] [id number] Preschool Assistant Director: Shakeel Graham MD Lymphocytes (Bld) [#/Vol] 1.50 10*3/uL Normal 1.10-3.70 [facility] Comment on above: Performed By: #### H IVCMB, PHEP #### [address] [address] Preschool Assistant Director: Dom Fowler MD #### CP #### [facility] [address] [place] [address] [place] [id number] Preschool Assistant Director: Shakeel Graham MD Lymphocytes/100 WBC (Bld) 30 % Normal 24-43 [facility] Comment on above: Performed By: #### H IVCMB, PHEP #### [address] [address] Preschool Assistant Director: Dom Fowler MD #### CP #### [address] [place] [phone] Preschool Assistant Director: Shakeel Graham MD MCH (RBC) [Entitic mass] 26.5 pg Normal 25.2-33.5 [facility] Comment on above: Performed By: #### H IVCMB, PHEP #### [address] [address] Preschool Assistant Director: Dom Fowler MD #### CP #### [facility] [address] [place] [phone] Preschool Assistant Director: Shakeel Graham MD MCHC (RBC) [Mass/Vol] 31.3 g/dL Normal 28.4-34.8 [facility] Comment on above: Performed By: #### H IVCMB, PHEP #### [address] [address] Preschool Assistant Director: Dom Fowler MD #### CP #### [address] [place] [phone] Preschool Assistant Director: Shakeel Graham MD MCV (RBC) [Entitic vol] 84.5 fL Normal 82.6-102.9 [facility] Comment on above: Performed By: #### H IVCMB, PHEP #### [address] [address] Preschool Assistant Director: Dom Fowler MD #### CP #### [address] [place] [phone] Preschool Assistant Director: Shakeel Graham MD Monocytes (Bld) [#/Vol] 0.37 10*3/uL Normal 0.10-1.20 [facility] Comment on above: Performed By: #### H IVCMB, PHEP #### [address] [address] Preschool Assistant Director: Dom Fowler MD #### CP #### [address] [place] [phone] Preschool Assistant Director: Shakeel Graham MD Monocytes/100 WBC (Bld) 8 % Normal 3-12 [facility] Comment on above: Performed By: #### H IVCMB, PHEP #### [address] [address] Preschool Assistant Director: Dom Fowler MD #### CP #### [address] [place] [address] Preschool Assistant Director: Shakeel Graham MD Neutrophil (Seg) 59 % Normal 36-65 [facility] Comment on above: Performed By: #### H IVCMB, PHEP #### [address] [place] [place] [address] Preschool Assistant Director: Dom Fowler MD #### CP #### [facility] [address] [place], [place] [phone] Preschool Assistant Director: Shakeel Graham MD NRBC Automated 0.0 per 100 WBC Normal 0.0 [facility] Comment on above: Performed By: #### H IVCMB, PHEP #### [address] [address] Preschool Assistant Director: Dom Fowler MD #### CP #### [facility] [address] [place] [phone] Preschool Assistant Director: Shakeel Graham MD Platelet mean volume (Bld) [Entitic vol] 11.2 fL Normal 8.1-13.5 [facility] Comment on above: Performed By: #### H IVCMB, PHEP #### [address] [address] Preschool Assistant Director: Dom Fowler MD #### CP #### [facility] [address] [place] [address] [place] [id number] Preschool Assistant Director: Shakeel Graham MD Platelets (Bld) [#/Vol] 254 10*3/uL Normal 138-453 [facility] Comment on above: Performed By: #### H IVCMB, PHEP #### [address] [address] Preschool Assistant Director: Dom Fowler MD #### CP #### [facility] [address] [place] [address] [place], [place] [phone] Preschool Assistant Director: Shakeel Graham MD RBC (Bld) [#/Vol] 4.46 10*6/uL Normal 3.95-5.11 [facility] Comment on above: Performed By: #### H IVCMB, PHEP #### [address] [address] Preschool Assistant Director: Dom Fowler MD #### CP #### [facility] [address] [place] [address] [place] [address] Preschool Assistant Director: Shakeel Graham MD WBC (Bld) [#/Vol] 5.0 10*3/uL Normal 3.5-11.3 [facility] Comment on above: Performed By: #### H IVCMB, PHEP #### [address] [address] Preschool Assistant Director: Dom Fowler MD #### CP #### [address] [place] [address] Preschool Assistant Director: Shakeel Graham MD Auto Diff Performed NOT REPORTED Normal [facility] Comment on above: Performed By: #### H IVCMB, PHEP #### [address] [address] Preschool Assistant Director: Dom Fowler MD #### CP #### [address] [place] [address] Preschool Assistant Director: Shakeel Graham MD Platelets (Bld) [#/Vol] NOT REPORTED Normal [facility] Comment on above: Performed By: #### H IVCMB, PHEP #### [address] [address] Preschool Assistant Director: Dom Fowler MD #### CP #### [address] [place] [address] Preschool Assistant Director: Shakeel Graham MD RBC morphology finding Nom (Bld) NOT REPORTED Normal [facility] Comment on above: Performed By: #### H IVCMB, PHEP #### [address] [address] Preschool Assistant Director: Dom Fowler MD #### CP #### [address] [place] [address] Preschool Assistant Director: Shakeel Graham MD WBC Morphology NOT REPORTED Normal [facility] Comment on above: Performed By: #### H IVCMB, PHEP #### [address] [id number] Preschool Assistant Director: Dom Fowler MD #### CP #### [address] [place] [id number] Preschool Assistant Director: Shakeel Graham MD Type + Scrnon 11-19 Type + Scrn Negative Normal [facility] Comment on above: Performed By: #### H IVCMB, PHEP #### [address] [address] Preschool Assistant Director: Dom Fowler MD #### CP #### [address] [place] [id number] Preschool Assistant Director: Shakeel Graham MD Toxicology [facility] Amphetamine(s),Ur Negative Normal NEG [facility] Comment on above: Performed By: #### H IVCMB, PHEP #### [address] [address] Preschool Assistant Director: Dom Fowler MD #### CP #### [address] [place], [place] [phone] Preschool Assistant Director: Shakeel Graham MD Barbiturate(s),Ur Negative Normal NEG [facility] Comment on above: Performed By: #### H IVCMB, PHEP #### [address] [address] Preschool Assistant Director: Dom Fowler MD #### CP #### [address] [place] [address] Preschool Assistant Director: Shakeel Graham MD Benzodiazepine(s) Negative Normal NEG [facility] Comment on above: Performed By: #### H IVCMB, PHEP #### [facility] [address] [place] [address] Preschool Assistant Director: Dom Fowler MD #### CP #### [facility] [address] [place] [address] [place], [place] [phone] Preschool Assistant Director: Shakeel Graham MD Buprenorphrine, Ur Negative Normal NEG [facility] Comment on above: Performed By: #### H IVCMB, PHEP #### [address] [address] Preschool Assistant Director: Dom Fowler MD #### CP #### [facility] [address] [place] [address] Dr. [place] [address] Preschool Assistant Director: Shakeel Graham MD Cannabinoid(s),Ur Negative Normal NEG [facility] Comment on above: Performed By: #### H IVCMB, PHEP #### [address] [address] Preschool Assistant Director: Dom Fowler MD #### CP #### [facility] [address] [place] [address] Dr. [place] [id number] Preschool Assistant Director: Shakeel Graham MD Cocaine Metabolite Negative Normal [facility] Comment on above: Performed By: #### H IVCMB, PHEP #### [address] [address] Preschool Assistant Director: Dom Fowler MD #### CP #### [facility] [address] [place] [address] Dr. [place], [place] [id number] Preschool Assistant Director: Shakeel Graham MD Methadone Ql (U) Negative Normal NEG [facility] [place] Comment on above: Performed By: #### H IVCMB, PHEP #### [address] [address] Preschool Assistant Director: Dom Fowler MD #### CP #### [facility] [address] [place] [address] Dr. Felix, [place] [phone] Preschool Assistant Director: Shakeel Graham MD Methamphetamine, Ur Negative Normal NEG [facility] Comment on above: Performed By: #### H IVCMB, PHEP #### [facility] [address] [place] [address] Preschool Assistant Director: Dom Fowler MD #### CP #### [address] [place], [place] [id number] Preschool Assistant Director: Shakeel Graham MD Opiate(s), Ur Negative Normal NEG [facility] Comment on above: Performed By: #### H IVCMB, PHEP #### [address] [address] Preschool Assistant Director: Dom Fowler MD #### CP #### [address] [place], [place] [id number] Preschool Assistant Director: Shakeel Graham MD Oxycodone, Urine Negative Normal NEG [facility] [place] Comment on above: Performed By: #### H IVCMB, PHEP #### [facility] [address] [place] [address] Preschool Assistant Director: Dom Fowler MD #### CP #### [address] [place], [place] [id number] Preschool Assistant Director: Shakeel Graham MD Phencyclidine, Ur Negative Normal NEG [facility] Comment on above: Performed By: #### H IVCMB, PHEP #### [address] [address] Preschool Assistant Director: Dom Fowler MD #### CP #### [address] [place], [place] [id number] Preschool Assistant Director: Shakeel Graham MD Propoxyphene,Urine Negative Normal NEG [facility] Comment on above: Performed By: #### H IVCMB, PHEP #### [address] [address] Preschool Assistant Director: Dom Fowler MD #### CP #### [facility] [address] [place] [address] [place] [address] Preschool Assistant Director: Shakeel Graham MD Tricyclic antidepressants Screen Ql (U) Negative Normal NEG [facility] Comment on above: Result Comment: Drug screen results are to be used for medical purposes only. All positive results are unconfirmed. Testing for employment or legal uses should be sent to a reference laboratory for confirmation. Performed By: #### H IVCMB, PHEP #### [address] [address] Preschool Assistant Director: Dom Fowler MD #### CP #### [address] [place], [place] [id number] Preschool Assistant Director: Shakeel Graham MD Interpretive Info NOT REPORTED Normal [facility] Comment on above: Performed By: #### H IVCMB, PHEP #### [address] [address] Preschool Assistant Director: Dom Fowler MD #### CP #### [address] [place], [place] [id number] Preschool Assistant Director: Shakeel Graham MD MDMA, Urine NOT REPORTED Normal NEG [facility] Comment on above: Performed By: #### H IVCMB, PHEP #### [address] [address] Preschool Assistant Director: Dom Fowler MD #### CP #### [facility] [address] [place] [address] Dr. [place], [place] [phone] Preschool Assistant Director: Shakeel Graham MD Urine Drug Screen, Magda grieron 11-20-2019 Amphetamine Screen, Ur Negative NEGATIVE [facility] [place] Barbiturate Screen, Ur Negative NEGATIVE [facility] [place] Benzodiazepine Screen, Urine Negative NEGATIVE [facility] [place] Buprenorphine Urine Negative NEGATIVE [facility] [place] Cannabinoid Scrn, Ur Negative NEGATIVE [facility] [place] Cocaine Metabolite, Urine Negative NEGATIVE [facility] [place] MDMA, Urine NOT REPORTED NEGATIVE [facility] [place] Methadone Screen, Urine Negative NEGATIVE [facility] [place] Methamphetamine, Urine Negative NEGATIVE [facility] [place] Opiates, Urine Negative NEGATIVE [facility] [place] Oxycodone Screen, Ur Negative NEGATIVE [facility] [place] Phencyclidine, Urine Negative NEGATIVE [facility] [place] Propoxyphene, Urine Negative NEGATIVE [facility] [place] Test Information NOT REPORTED [facility] Tricyclic Antidepressants, Urine Negative NEGATIVE [facility] [place] Comment on above: Drug screen results are to be used for medical purposes only. All positive results are unconfirmed. Testing for employment or legal uses should be sent to a reference laboratory for confirmation. Chlamydia/GC DNA, Uron 06-20 Chlamydia Probe, Ur Negative Normal NEG [facility] Comment on above: Result Comment: CHLA MYDIA [...] nucleic acid target. Performed By: #### U [facility] #### [place] [address] [place] [address] Preschool Assistant Director: Dom Fowler MD Gonorrhea Probe, Ur Negative Normal NEG [facility] Comment on above: Result Comment: NEIS SERIA [...] target. Performed By: #### U CGP #### [address] [address] Preschool Assistant Director: Dom Fowler MD Cult,Urineon 06-20-2019 Cult,Urine Specimen Description .CLEAN CATCH URINE Special Requests NOT REPORTED Culture NO SIGNIFICANT GROWTH Report Status FINAL 06/20/2019 Normal [facility] Comment on above: Performed By: #### H IVCMB, PHEP #### [address] [address] Preschool Assistant Director: Dom Fowler MD #### CP #### [facility] [address] [place] [address] Preschool Assistant Director: Shakeel Graham MD HIV Ag/Abon 06-20-2019 HIV Ag/Ab NONREACTIVE Normal [facility] Comment on above: Result Comment: No l aboratory evidence of HIV infection. If acute HIV infection is suspected, consider testing for HIV-1 RNA. Performed By: #### A HCV, HIVCMB #### [address] [address] Preschool Assistant Director: Dom Fowler MD Hep C Abon 06-20-2019 Hep C Ab REACTIVE Abnormal [facility] Comment on above: Result Comment: The [...] Performed By: #### A HCV, HIVCMB #### [address] [address] Preschool Assistant Director: Dom Fowler MD Profileon 9 T.pallidum Ab Screen NONREACTIVE Normal [facility] Comment on above: Result Comment: T. pallidum antibodies are not detected. There is no serological evidence of infection with T. pallidum (early primary syphilis cannot be excluded). Retest in 2-4 weeks if syphilis is clinically suspect. Performed By: #### P RENAT #### [address] [place] [address] Preschool Assistant Director: Dom Fowler MD [facility] [address] [place] [address] Dr. [place], [place] [phone] Preschool Assistant Director: Shakeel Graham MD Hep B Surf Ag NONREACTIVE Normal NR [facility] Comment on above: Performed By: #### P RENAT #### [address] [address] Preschool Assistant Director: Dom Fowler MD [address] [place] [phone] Preschool Assistant Director: Shakeel Graham MD Rubella Ab, IgG 286.1 IU/mL Normal [facility] [place] Comment on above: Result Comment: REFERENCE RANGE: <5.0 NON-REACTIVE (non-immune) 5.0 TO 9.9 EQUIVOCAL >=10.0 REACTIVE (immune) Performed By: #### P RENAT #### [address] [address] Preschool Assistant Director: Dom Fowler MD [address] Felix, [facility] Preschool Assistant Director: Shakeel Graham MD HCG, Quanton 06-19-2019 HCG, Quant 53663 IU/L High <5 [facility] Comment on above: Result Comment: Non-preg premeno <=5 Postmeno <=8 Male <=3 If HCG results do not concur with clinical observations, additional testing to confirm results is recommended. Elevated results not associated with may be found in patients with other diseases such as tumors of the germ cells (testis, ovaries, etc.), bladder, pancreas, stomach, lungs, and liver. Performed By: #### B HCG #### [facility] [address] [place] [address] [place] [address] Preschool Assistant Director: Shakeel Graham MD HCG, Quantitative, on 06-19-2019 hCG Quant 09272 High <5 IU/L [place] Comment on above: Non-preg premeno <=5 Postmeno <=8 Male <=3 If HCG results do not concur with clinical observations, additional testing to confirm results is recommended. Elevated results not associated with may be found in patients with other diseases such as tumors of the germ cells (testis, ovaries, etc.), bladder, pancreas, stomach, lungs, and liver. Interpretation and review of laboratory results Abnormal [place] HIV Screenon 06-19-2019 HIV Ag/Ab NONREACTIVE NONREACTIVE [place], [place] Comment on above: No laboratory eviden ce of HIV infection. If acute HIV infection is suspected, consider testing for HIV-1 RNA. Hepatitis C Antibodyon 06-19 Hepatitis C Ab REACTIVE Abnormal NONREACTIVE [facility] [place] [place] Comment on above: The hepatitis C [...] Interpretation and review of laboratory results Abnormal [place] PROFILE Ion 019 Basophils (Bld) [#/Vol] 10*3/uL [place] Basophils/100 WBC (Bld) 1 % 0 - 2 % [place] Differential Type NOT REPORTED [place] Eosinophils (Bld) [#/Vol] 0.09 10*3/uL [place] Eosinophils/100 WBC (Bld) 2 % 1 - 4 % [place] Erythrocyte distribution width (RBC) [Ratio] 15.7 % High 11.8 - 14.4 % [place] Hematocrit (Bld) [Volume fraction] 36.5 % 36.3 - 47.1 % [place] Hemoglobin (Bld) [Mass/Vol] 11.2 g/dL Low 11.9 - 15.1 g/dL [place] Hepatitis B Surface Ag NONREACTIVE NONREACTIVE [place] Immature granulocytes (Bld) [#/Vol] 0 % 0 [place] Immature granulocytes (Bld) [#/Vol] 10*3/uL [place] Interpretation and review of laboratory results Abnormal [place] Lymphocytes (Bld) [#/Vol] 1.98 10*3/uL [place] Lymphocytes/100 WBC (Bld) 46 % High 24 - 43 % [place] MCH (RBC) [Entitic mass] 25.6 pg 25.2 - 33.5 pg [place] MCHC (RBC) [Mass/Vol] 30.7 g/dL 28.4 - 34.8 g/dL [place] MCV (RBC) [Entitic vol] 83.3 fL 82.6 - 102.9 fL [place] Monocytes (Bld) [#/Vol] 0.37 10*3/uL [place] Monocytes/100 WBC (Bld) 9 % 3 - 12 % [place] Platelet mean volume (Bld) [Entitic vol] 11.6 fL 8.1 - 13.5 fL [place] Platelets (Bld) [#/Vol] NOT REPORTED [place] Platelets (Bld) [#/Vol] 196 10*3/uL [place] RBC (Bld) [#/Vol] 4.38 10*6/uL 3.95 - 5.1 1 m/uL [place] RBC morphology finding Nom (Bld) NOT REPORTED [place] Rubella virus IgG Ql (S) 286.1 IU/mL [place] Comment on above: REFERENCE RANGE: <5.0 NON-REACTIVE (non-immune) 5.0 TO 9.9 EQUIVOCAL >=10.0 REACTIVE (immune) Segmented neutrophils/100 WBC (Bld) 42 % 36 - 65 % [place] Segs Absolute 1.75 [place] T. pallidum, IgG NONREACTIVE NONREACTIVE [place] Comment on above: T. pallidum antibodies are not detected. There is no serological evidence of infection with T. pallidum (early primary syphilis cannot be excluded). Retest in 2-4 weeks if syphilis is clinically suspect. WBC (Bld) [#/Vol] 4.2 10*3/uL [place] WBC (Bld) [#/Vol] 0.0 10*3/uL 0.0 per 100 WBC [place] WBC Morphology NOT REPORTED [place], [place] TYPE AND SCREENon 1 ABO/Rh Positive [place] Profileon 9 Abs. Basophil <0.03 Normal 0.00-0.20 [facility] Comment on above: Performed By: #### P RENAT #### [address] [address] Preschool Assistant Director: Dom Fowler MD [address] [place] [phone] Preschool Assistant Director: Shakeel Graham MD Abs.Imm.Granulocyte <0.03 Normal 0.00-0.30 [facility] Comment on above: Performed By: #### P RENAT #### [address] [address] Preschool Assistant Director: Dom Fowler MD [address] [place] [phone] Preschool Assistant Director: Shakeel Graham MD Abs.Neutrophil (Seg) 1.75 k/uL Normal 1.50-8.10 [facility] Comment on above: Performed By: #### P RENAT #### [address] [address] Preschool Assistant Director: Dom Fowler MD [address] [place] [phone] Preschool Assistant Director: Shakeel Graham MD Basophils/100 WBC (Bld) 1 % Normal 0-2 [facility] Comment on above: Performed By: #### P RENAT #### [address] [address] Preschool Assistant Director: Dom Fowler MD [address] Felix [facility] Preschool Assistant Director: Shakeel Graham MD Eosinophils (Bld) [#/Vol] 0.09 10*3/uL Normal 0.00-0.44 [facility] Comment on above: Performed By: #### P RENAT #### [address] [address] Preschool Assistant Director: Dom Fowler MD [address] [place] [phone] Preschool Assistant Director: Shakeel Graham MD Eosinophils/100 WBC (Bld) 2 % Normal 1-4 [facility] Comment on above: Performed By: #### P RENAT #### [address] [address] Preschool Assistant Director: Dom Fowler MD [address] [place] [phone] Preschool Assistant Director: Shakeel Graham MD Erythrocyte distribution width (RBC) [Ratio] 15.7 % High 11.8-14.4 [facility] Comment on above: Performed By: #### P RENAT #### [address] [address] Preschool Assistant Director: Dom Fowler MD [address] [place] [phone] Preschool Assistant Director: Shakeel Graham MD Hematocrit (Bld) [Volume fraction] 36.5 % Normal 36.3-47.1 [facility] Comment on above: Performed By: #### P RENAT #### [address] [address] Preschool Assistant Director: Dom Fowler MD [address] [place] [phone] Preschool Assistant Director: Shakeel Graham MD Hemoglobin (Bld) [Mass/Vol] 11.2 g/dL Low 11.9-15.1 [facility] Comment on above: Performed By: #### P RENAT #### [address] [place] [address] Preschool Assistant Director: Dom Fowler MD [facility] [address] [place] [address] Dr. [place] [phone] Preschool Assistant Director: Shakeel Graham MD Immature granulocytes (Bld) [#/Vol] 0 % Normal 0 [facility] Comment on above: Performed By: #### P RENAT #### [address] [address] Preschool Assistant Director: Dom Fowler MD [facility] [address] [place] [address] Dr. [place] [phone] Preschool Assistant Director: Shakeel Graham MD Lymphocytes (Bld) [#/Vol] 1.98 10*3/uL Normal 1.10-3.70 [facility] Comment on above: Performed By: #### P RENAT #### [address] [address] Preschool Assistant Director: Dom Fowler MD [address] [place] [address] Preschool Assistant Director: Shakeel Graham MD Lymphocytes/100 WBC (Bld) 46 % High 24-43 [facility] Comment on above: Performed By: #### P RENAT #### [address] [address] Preschool Assistant Director: Dom Fowler MD [facility] [address] [place] [address] [place] [phone] Preschool Assistant Director: Shakeel Graham MD MCH (RBC) [Entitic mass] 25.6 pg Normal 25.2-33.5 [facility] Comment on above: Performed By: #### P RENAT #### [address] [address] Preschool Assistant Director: Dom Fowler MD [address] [place], [place] [phone] Preschool Assistant Director: Shakeel Graham MD MCHC (RBC) [Mass/Vol] 30.7 g/dL Normal 28.4-34.8 [facility] Comment on above: Performed By: #### P RENAT #### [address] [address] Preschool Assistant Director: Dom Fowler MD [address] [place] [phone] Preschool Assistant Director: Shakeel Graham MD MCV (RBC) [Entitic vol] 83.3 fL Normal 82.6-102.9 [facility] Comment on above: Performed By: #### P RENAT #### [address] [address] Preschool Assistant Director: Dom Fowler MD [address] [place] [phone] Preschool Assistant Director: Shakeel Graham MD Monocytes (Bld) [#/Vol] 0.37 10*3/uL Normal 0.10-1.20 [facility] Comment on above: Performed By: #### P RENAT #### [address] [address] Preschool Assistant Director: Dom Fowler MD [address] [place] [address] Preschool Assistant Director: Shakeel Graham MD Monocytes/100 WBC (Bld) 9 % Normal 3-12 [facility] Comment on above: Performed By: #### P RENAT #### [address] [address] Preschool Assistant Director: Dom Fowler MD [address] [place] [phone] Preschool Assistant Director: Shakeel Graham MD Neutrophil (Seg) 42 % Normal 36-65 [facility] [place] Comment on above: Performed By: #### P RENAT #### [address] [place] [address] Preschool Assistant Director: Dom Fowler MD [address] [place] [phone] Preschool Assistant Director: Shakeel Graham MD NRBC Automated 0.0 per 100 WBC Normal 0.0 [facility] Comment on above: Performed By: #### P RENAT #### [address] [address] Preschool Assistant Director: Dom Fowler MD [address] Felix [facility] Preschool Assistant Director: Shakeel Graham MD Platelet mean volume (Bld) [Entitic vol] 11.6 fL Normal 8.1-13.5 [facility] Comment on above: Performed By: #### P RENAT #### [address] [address] Preschool Assistant Director: Dom Fowler MD [address] [place] [phone] Preschool Assistant Director: Shakeel Graham MD Platelets (Bld) [#/Vol] 196 10*3/uL Normal 138-453 [facility] Comment on above: Performed By: #### P RENAT #### [address] [address] Preschool Assistant Director: Dom Fowler MD [address] [place] [phone] Preschool Assistant Director: Shakeel Graham MD RBC (Bld) [#/Vol] 4.38 10*6/uL Normal 3.95-5.11 [facility] Comment on above: Performed By: #### P RENAT #### [address] [address] Preschool Assistant Director: Dom Fowler MD [address] [place] [address] Preschool Assistant Director: Shakeel Graham MD WBC (Bld) [#/Vol] 4.2 10*3/uL Normal 3.5-11.3 [facility] Comment on above: Performed By: #### P RENAT #### [address] [address] Preschool Assistant Director: Dom Fowler MD [address] [place] [address] Preschool Assistant Director: Shakeel Graham MD Auto Diff Performed NOT REPORTED Normal [facility] Comment on above: Performed By: #### P RENAT #### [address] [address] Preschool Assistant Director: Dom Fowler MD [address] [place] [address] Preschool Assistant Director: Shakeel Graham MD Platelets (Bld) [#/Vol] NOT REPORTED Normal [facility] Comment on above: Performed By: #### P RENAT #### [address] [address] Preschool Assistant Director: Dom Fowler MD [address] [place] [address] Preschool Assistant Director: Shakeel Graham MD RBC morphology finding Nom (Bld) NOT REPORTED Normal [facility] Comment on above: Performed By: #### P RENAT #### [address] [address] Preschool Assistant Director: Dom Fowler MD [address] [place] [address] Preschool Assistant Director: Shakeel Graham MD WBC Morphology NOT REPORTED Normal [facility] [place] Comment on above: Performed By: #### P RENAT #### [address] [address] Preschool Assistant Director: Dom Fowler MD [address] Felix [place] [id number] Preschool Assistant Director: Shakeel Graham MD Type + Scrnon 06-19 Type + Scrn Negative [facility] Comment on above: Performed By: #### P RTYS #### [facility] [address] [place], [place] [id number] Preschool Assistant Director: Shakeel Graham MD Toxicology Scree, Urineon Amphetamine(s),Ur Negative Normal NEG [facility] Comment on above: Performed By: #### C PDAU #### [facility] [address] [place], [place] [id number] Preschool Assistant Director: Shakeel Graham MD Barbiturate(s),Ur Negative Normal NEG [facility] Comment on above: Performed By: #### C PDAU #### [facility] [address] [place], [facility] Preschool Assistant Director: Shakeel Graham MD Benzodiazepine(s) Negative Normal [facility] Comment on above: Performed By: #### C PDAU #### [facility] [address] [place] [phone] Preschool Assistant Director: Shakeel Graham MD Buprenorphrine, Ur Negative Normal [facility] Comment on above: Performed By: #### C PDAU #### [facility] [address] [place], [facility] Preschool Assistant Director: Shakeel Graham MD Cannabinoid(s),Ur Negative Normal NEG [facility] Comment on above: Performed By: #### C PDAU #### [facility] [address] [place], [place] [id number] Preschool Assistant Director: Shakeel Graham MD Cocaine Metabolite Negative Normal [facility] Comment on above: Performed By: #### C PDAU #### [facility] [address] [place], [place] 1917283 Preschool Assistant Director: Shakeel Graham MD Methadone Ql (U) Negative Normal NEG [facility] [place] Comment on above: Performed By: #### C PDAU #### [facility] [address] [place], [place] [phone] Preschool Assistant Director: Shakeel Graham MD Methamphetamine, Ur Negative Normal NEG [facility] Comment on above: Performed By: #### C PDAU #### [facility] [address] [place], [place] [phone] Preschool Assistant Director: Shakeel Graham MD Opiate(s), Ur Negative Normal NEG [facility] Comment on above: Performed By: #### C PDAU #### [facility] [address] [place] [address] Preschool Assistant Director: Shakeel Graham MD Oxycodone, Urine Negative Normal NEG [facility] [place] Comment on above: Performed By: #### C PDAU #### [facility] [address] [place], [place] [id number] Preschool Assistant Director: Shakeel Graham MD Phencyclidine, Ur Negative Normal [facility] Comment on above: Performed By: #### C PDAU #### [facility] [address] [place], [place] [id number] Preschool Assistant Director: Shakeel Graham MD Propoxyphene,Urine Negative Normal NEG [facility] Comment on above: Performed By: #### C PDAU #### [facility] [address] [place], [place] [id number] Preschool Assistant Director: Shakeel Graham MD Tricyclic antidepressants Screen Ql (U) Positive Abnormal NEG [facility] Comment on above: Result Comment: Drug screen results are to be used for medical purposes only. All positive results are unconfirmed. Testing for employment or legal uses should be sent to a reference laboratory for confirmation. Performed By: #### C PDAU #### [facility] [facility] [address] [place] [address] Preschool Assistant Director: Shakeel Graham MD Interpretive Info NOT REPORTED Normal [facility] Comment on above: Performed By: #### C PDAU #### [facility] [address] [place] [address] Preschool Assistant Director: Shakeel Graham MD MDMA, Urine NOT REPORTED Normal NEG [facility] Comment on above: Performed By: #### C PDAU #### [facility] [address] [place] [address] Preschool Assistant Director: Shakeel Graham MD Urine Drug Screen, Magda [...] Ag/Abon 05-10-2019 HIV Ag/Ab NONREACTIVE Normal NR [facility] Comment on above: Result Comment: No l aboratory evidence of HIV infection. If acute HIV infection is suspected, consider testing for HIV-1 RNA. Performed By: #### H IVCMB, PHEP #### [facility] [place] [address] Preschool Assistant Director: Dom Fowler MD #### CP #### [facility] [address] [place], [place] [id number] Preschool Assistant Director: Shakeel Graham MD Hepatitis Acute [facility] 05-10 Hep A Ab,IgM NONREACTIVE Normal NR [facility] Comment on above: Performed By: #### H IVCMB, PHEP #### [address] [address] Preschool Assistant Director: Dom Fowler MD #### CP #### [address] [place] [address] Preschool Assistant Director: Shakeel Graham MD Hep B Core Ab,IgM NONREACTIVE Normal [facility] Comment on above: Performed By: #### H IVCMB, PHEP #### [address] [address] Preschool Assistant Director: Dom Fowler MD #### CP #### [facility] [address] [place] [address] Dr. [place], [place] 2018483 Preschool Assistant Director: Shakeel Graham MD Hep B Surf Ag NONREACTIVE Normal [facility] Comment on above: Performed By: #### H IVCMB, PHEP #### [address] [address] Preschool Assistant Director: Dom Fowler MD #### CP #### [facility] [address] [place] [address] Dr. [place], [place] [id number] Preschool Assistant Director: Shakeel Graham MD Hep C Ab REACTIVE Abnormal [facility] Comment on above: Result Comment: The [...] Performed By: #### H IVCMB, PHEP #### [address] [place] [address] Preschool Assistant Director: Dom Fowler MD #### CP #### [facility] [address] [place] [address] [place], [place] [id number] Preschool Assistant Director: Shakeel Graham MD Comp Metabolic Profon 2018 (cont.) Normal [facility] Comment on above: Result Comment: Aver age GFR for 20-29 years old: 116 mL/min/1.73sq m Chronic Kidney Disease: <60 mL/min/1.73sq m Kidney failure: <15 mL/min/1.73sq m eGFR calculated using average adult body mass. Additional eGFR calculator available at: http://www.Meijob/multiple_crcl_2011.htm Performed By: #### H IVCMB, PHEP #### [address] [address] Preschool Assistant Director: Dom Fowler MD #### CP #### [facility] [address] [place] [address] [place], [place] [id number] Preschool Assistant Director: Shakeel Graham MD Albumin [Mass/Vol] 4.3 g/dL Normal 3.5-5.2 [facility] Comment on above: Performed By: #### H IVCMB, PHEP #### [address] [address] Preschool Assistant Director: Dom Fowler MD #### CP #### [address] [place], [place] [id number] Preschool Assistant Director: Shakeel Graham MD Albumin/Globulin [Mass ratio] 1.4 {ratio} Normal 1.0-2.5 [facility] Comment on above: Performed By: #### H IVCMB, PHEP #### [address] [address] Preschool Assistant Director: Dom Fowler MD #### CP #### [facility] [address] [place], [place] [id number] Preschool Assistant Director: Shakeel Graham MD Alkaline Phos 50 U/L Normal 35-104 [facility] Comment on above: Performed By: #### H IVCMB, PHEP #### [address] [address] Preschool Assistant Director: Dom Fowler MD #### CP #### [facility] [address] [place] [address] Dr. [place], [place] [id number] Preschool Assistant Director: Shakeel Graham MD ALT [Catalytic activity/Vol] 9 U/L Normal 5-33 [facility] Comment on above: Performed By: #### H IVCMB, PHEP #### [address] [address] Preschool Assistant Director: Dom Fowler MD #### CP #### [address] [place], [place] [id number] Preschool Assistant Director: Shakeel Graham MD Anion gap [Moles/Vol] 8 mmol/L Low 9-17 [facility] Comment on above: Performed By: #### H IVCMB, PHEP #### [address] [address] Preschool Assistant Director: Dom Fowler MD #### CP #### [address] [place], [place] [id number] Preschool Assistant Director: Shakeel Graham MD AST [Catalytic activity/Vol] 15 U/L Normal <32 [facility] Comment on above: Performed By: #### H IVCMB, PHEP #### [address] [address] Preschool Assistant Director: Dom Fowler MD #### CP #### [address] [place], [place] [id number] Preschool Assistant Director: Shakeel Graham MD Bilirubin Ql (U) 0.31 mg/dL Normal 0.3-1.2 [facility] Comment on above: Performed By: #### H IVCMB, PHEP #### [facility] [address] [place] [address] Preschool Assistant Director: Dom Fowler MD #### CP #### [facility] [address] [place], [place] [id number] Preschool Assistant Director: Shakeel Graham MD BUN/CRE Ratio 20 Normal 9-20 [facility] Comment on above: Performed By: #### H IVCMB, PHEP #### [address] [address] Preschool Assistant Director: Dom Fowler MD #### CP #### [facility] [address] [place], [place] [id number] Preschool Assistant Director: Shakeel Graham MD Calcium [Mass/Vol] 9.4 mg/dL Normal 8.6-10.4 [facility] Comment on above: Performed By: #### H IVCMB, PHEP #### [address] [address] Preschool Assistant Director: Dom Fowler MD #### CP #### [facility] [address] [place] [address] Dr. [place], [place] [id number] Preschool Assistant Director: Shakeel Graham MD Chloride [Moles/Vol] 102 mmol/L Normal 98-107 [facility] Comment on above: Performed By: #### H IVCMB, PHEP #### [address] [address] Preschool Assistant Director: Dom Fowler MD #### CP #### [facility] [address] [place], [place] [id number] Preschool Assistant Director: Shakeel Graham MD CO2 [Moles/Vol] 28 mmol/L Normal 20-31 [facility] Comment on above: Performed By: #### H IVCMB, PHEP #### [address] [address] Preschool Assistant Director: Dom Fowler MD #### CP #### [facility] [address] [place], [place] [id number] Preschool Assistant Director: Shakeel Graham MD Creatinine [Mass/Vol] 0.92 mg/dL High 0.50-0.90 [facility] Comment on above: Performed By: #### H IVCMB, PHEP #### [address] [address] Preschool Assistant Director: Dom Fowler MD #### CP #### [address] [place] [address] Preschool Assistant Director: Shakeel Graham MD GFR, Amer >60 Normal >60 [facility] Comment on above: Performed By: #### H IVCMB, PHEP #### [address] [address] Preschool Assistant Director: Dom Fowler MD #### CP #### [facility] [address] [place] [address] Dr. [place], [place] [phone] Preschool Assistant Director: Shakeel Graham MD GFR,non Amer >60 Normal >60 [facility] Comment on above: Performed By: #### H IVCMB, PHEP #### [address] [address] Preschool Assistant Director: Dom Fowler MD #### CP #### [facility] [address] [place], [place] [id number] Preschool Assistant Director: Shakeel Graham MD Glucose [Mass/Vol] 91 mg/dL Normal 70-99 [facility] Comment on above: Performed By: #### H IVCMB, PHEP #### [address] [address] Preschool Assistant Director: Dom Fowler MD #### CP #### [facility] [address] [place] [address] Dr. [place], [place] [phone] Preschool Assistant Director: Shakeel Graham MD Potassium [Moles/Vol] 4.3 mmol/L Normal 3.7-5.3 [facility] Comment on above: Performed By: #### H IVCMB, PHEP #### [address] [address] Preschool Assistant Director: Dom Fowler MD #### CP #### [address] [place], [place] 0680083 Preschool Assistant Director: Shakeel Graham MD Protein [Mass/Vol] 7.4 g/dL Normal 6.4-8.3 [facility] Comment on above: Performed By: #### H IVCMB, PHEP #### [address] [address] Preschool Assistant Director: Dom Fowler MD #### CP #### [address] [place], [place] [id number] Preschool Assistant Director: Shakeel Graham MD Sodium [Moles/Vol] 138 mmol/L Normal 135-144 [facility] Comment on above: Performed By: #### H IVCMB, PHEP #### [address] [address] Preschool Assistant Director: Dom Fowler MD #### CP #### [address] [place], [place] [id number] Preschool Assistant Director: Shakeel Graham MD Staging: Normal [facility] Comment on above: Result Comment: Stag e 1: Some kidney damage normal GFR Stage 2: Mild kidney damage GFR 60-89 Stage 3: Moderate kidney damage GFR 30-59 Stage 4: Severe kidney damage GFR 15-29 Stage 5: Severe kidney damage GFR <15 ESRD - chronic treatment by dialysis or transplant Performed By: #### H IVCMB, PHEP #### [address] [id number] Preschool Assistant Director: Dom Fowler MD #### CP #### [facility] [address] [place] [address] Preschool Assistant Director: Shakeel Graham MD Urea nitrogen [Mass/Vol] 18 mg/dL Normal 6-20 [facility] Comment on above: Performed By: #### H IVC, PHEP #### [facility] [address] [place], [place] [id number] Preschool Assistant Director: Dom Fowler MD #### CP #### [facility] [address] [place] [address] Preschool Assistant Director: Shakeel Graham MD [facility] Metabolic Pane [facility] 05-09-2019 Albumin [Mass/Vol] 4.3 g/dL 3.5 - 5.2 g/dL [place], [place] Albumin/Globulin [Mass ratio] 1.4 {ratio} [place], [place] ALP [Catalytic activity/Vol] 50 U/L 35 - 104 U/L [place] ALT [Catalytic activity/Vol] 9 U/L 5 - 33 U/L [place] Anion gap [Moles/Vol] 8 mmol/L Low 9 - 17 mmol/L [place] AST [Catalytic activity/Vol] 15 U/L <32 [place] Bilirubin Ql (U) 0.31 mg/dL 0.3 - 1.2 mg/dL [place], [place] Bun/Cre Ratio 20 [place] Calcium [Mass/Vol] 9.4 mg/dL 8.6 - 10. 4 mg/dL [place] Chloride [Moles/Vol] 102 mmol/L 98 - 107 mmol/L [place] CO2 [Moles/Vol] 28 mmol/L 20 - 31 mmol/L [place] Creatinine [Mass/Vol] 0.92 mg/dL High 0.5 - 0.9 mg/dL [place] GFR >60 >60 mL/min [place] GFR Non- >60 >60 mL/min [place] Glucose [Mass/Vol] 91 mg/dL 70 - 99 mg/dL [place] Interpretation and review of laboratory results Abnormal [place] Potassium [Moles/Vol] 4.3 mmol/L 3.7 - 5.3 mmol/L [place] Protein [Mass/Vol] 7.4 g/dL 6.4 - 8.3 g/dL [place] Sodium [Moles/Vol] 138 mmol/L 135 - 144 mmol/L [place] Urea nitrogen [Mass/Vol] 18 mg/dL 6 - 20 mg/dL [place] Hepatitis Panel, Acuteon HAV IgM IA Qn (S) NONREACTIVE NONREACTIVE [place] Hep B Core Ab, IgM NONREACTIVE NONREACTIVE [place] Hepatitis B Surface Ag NONREACTIVE NONREACTIVE [place] Hepatitis C Ab REACTIVE Abnormal NONREACTIVE [place], [place] Comment on above: The hepatitis C [...] Interpretation and review of laboratory results Abnormal [place] Metabolic Panelon 05-09-2019 GFR/1.73 sq M predicted among non-blacks MDRD (S/P/Bld) [Vol rate/Area] [place] Comment on above: Average GFR for 20-2 9 years old: 116 mL/min/1.73sq m Chronic Kidney Disease: <60 mL/min/1.73sq m Kidney failure: <15 mL/min/1.73sq m eGFR calculated using average adult body mass. Additional eGFR calculator available at: http://www.Meijob/multiple_crcl_2012.htm Stage 1: Some kidney damage normal GFR Stage 2: Mild kidney damage GFR 60-89 Stage 3: Moderate kidney damage GFR 30-59 Stage 4: Severe kidney damage GFR 15-29 Stage 5: Severe kidney damage GFR <15 ESRD - chronic treatment by dialysis or transplant Drug Scr, Abuse, Uron 2017 Amphetamine(s),Ur Positive Abnormal NEG [facility] Comment on above: Result Comment: (Pos itive cutoff 1000 ng/mL) Performed By: #### D AU ####[address] [address] Barbiturate(s),Ur Negative Normal NEG [facility] Comment on above: Result Comment: (Pos itive cutoff 200 ng/mL) Performed By: #### D AU ####[address] [address] Base excess Negative Normal NEG [facility] Comment on above: Result Comment: (Pos itive cutoff 300 ng/mL) Performed By: #### D AU ####[address] [address] Benzodiazepine(s) Negative Normal NEG [facility] Comment on above: Result Comment: (Pos itive cutoff 200 ng/mL) Performed By: #### D AU ####[address] [address] Cannabinoid(s),Ur Negative Normal NEG [facility] Comment on above: Result Comment: (Pos itive cutoff 50 ng/mL) Performed By: #### D AU ####[address] [address] Interpretive Info Assay provides medical screening only. The absence of expected drug(s) and/or Normal [facility] Comment on above: Result Comment: meta bolite(s) may indicate diluted or adulterated urine, limitations of testing or timing of collection.Testing for legal purposes should be confirmed by another method. To request confirmation of test result, please call the lab within 7 days of sample submission.Performed at [address] [address] Performed By: #### D AU ####[address] [address] Opiate(s), Ur Negative Normal NEG [facility] Comment on above: Result Comment: (Pos itive cutoff 300 ng/mL) Performed By: #### D AU ####[address] [address] Oxycodone, Urine Negative Normal NEG [facility] Comment on above: Result Comment: (Pos itive cutoff 100 ng/mL) Performed By: #### D AU ####[address] [address] Phencyclidine, Ur Negative Normal NEG [facility] Comment on above: Result Comment: (Pos itive cutoff 25 ng/mL) Performed By: #### D AU ####[address] [address] Urine, methadone presence Negative Normal NEG [facility] Comment on above: Result Comment: (Pos itive cutoff 300 ng/mL) Performed By: #### D AU ####[address] [address] Buprenorphrine, Ur NOT REPORTED Normal NEG [facility] Comment on above: Performed By: #### D AU ####[address] [place] [address] MDMA, Urine NOT REPORTED Normal NEG [facility] Comment on above: Performed By: #### D AU ####[address] [place] [address] Methamphetamine, Ur NOT REPORTED Normal NEG [facility] Comment on above: Performed By: #### D AU ####[address] [address] Propoxyphene,Urine NOT REPORTED Normal NEG [facility] Comment on above: Performed By: #### D AU ####[facility] [place] [address] Urine, tricyclic antidepressants NOT REPORTED Normal NEG [facility] Comment on above: Performed By: #### D AU ####[address] [address] Lipid Profileon 11-05-2017 Cholesterol 137 mg/dL Normal <200 [facility] Comment on above: Result Comment: Chol esterol Guidelines: <200 Desirable 200-240 Borderline >240 Undesirable Performed By: #### L IPR ####[address] [address] Cholesterol to HDL Ratio 4.3 {ratio} Normal <5 [facility] Comment on above: Performed By: #### L IPR ####[facility] [place] [address] HDL Cholesterol 32 mg/dL Low >40 [facility] Comment on above: Result Comment: HDL Guidelines: <40 Undesirable 40-59 Borderline >59 Desirable Performed By: #### L IPR ####[address] [address] LDL Cholesterol 82 mg/dL Normal 0-130 [facility] Comment on above: Result Comment: LDL Guidelines: <100 Desirable 100-129 Near to/above Desirable 130-159 Borderline >159 UndesirableDirect (measured) LDL and calculated LDL are not interchangeable tests. Performed By: #### L IPR ####[address] [address] Triglyceride 113 mg/dL Normal <150 [facility] Comment on above: Result Comment: Trig lyceride Guidelines: <150 Desirable 150- 199 Borderline 200-499 High >499 Very high Based on AHA Guidelines for fasting triglyceride, June 2012.Performed at [facility] [address] [place] [address] Performed By: #### L IPR ####[facility] [place] [address] Cholesterol in VLDL mass conc NOT REPORTED Normal 10-16 [facility] Comment on above: Performed By: #### L IPR ####[facility] [place] [address] Encounters Encounter Date Encounter Type Care Provider Facility Start: 09-05-2023 End: 09-05-2023 ambulatory LUIS FELIPE HALL Not Available Start: 08-21-2023 End: 08-21-2023 ambulatory YOUSIF APARICIO Not Available Start: 08-01-2023 End: 08-01-2023 ambulatory LUIS FELIPE HALL Not Available Start: 12-21-2022 End: 12-21-2022 ambulatory IVAN CAMEJO . Facility:[facility] Start: 11-29-2022 End: 11-29-[address] RODO MENCHACA Facility:[facility] Start: 10-25-2022 [facility] Facility:[facility] Start: 10-11-2022 End: 10-11-[address] CHRISTINE SÁNCHEZ Facility:[facility] Start: 09-12-2022 End: 09-13-[address] YOUSIF APARICIO . Facility:[facility] Start: 08-19-2022 Encounter for preprocedural laboratory examination DR YOUSIF APARICIO . [facility] Start: 08-18-2022 End: 08-18-[address] YOUSIF APARICIO . Facility:[facility] Start: 08-16-2022 End: 08-17-[address] YOUSIF APARICIO . Facility:[facility] Start: 08-16-2022 End: 08-17-2022 Encounter for preprocedural laboratory examination DR YOUSIF APARICIO . Facility:[facility] Start: 08-14-2022 End: 08-15-2022 [facility] Facility:[facility] Start: 07-27-2022 End: 07-28-[address] YOUSIF APARICIO . Facility:[facility] Start: 07-09-2022 End: 07-09-[address] ELISEO HARDING Facility: Start: 12-12-2021 Telephone encounter King zee MD Work Phone: Hematology/Oncology Comment on above: Lab Orders Start: 10-28-2021 Chart abstracting King fleming MD Work Phone: Hematology/Oncology Start: 04-26-2020 End: 04-27-2020 Patient encounter procedure ANTHONY PABON [facility] Start: 04-26-2020 End: 04-26-2020 Subsequent hospital visit by physician Rochelle ALFRED [facility] Start: 03-16-2020 End: 03-17-2020 Emergency department patient visit Lima Richards [facility] Facility:[facility] Start: 11-20-2019 End: 11-21-2019 Patient encounter procedure [facility] Start: 11-20-2019 End: 11-20-2019 Subsequent hospital visit by physician Rochelle ALFRED Laboratory Comment on above: History of miscarria ge, currently ; Amenorrhea; Positive urine test; Encounter for supervision of normal in first trimester, unspecified ; Spotting in early Start: 06-19-2019 End: 06-20-2019 Patient encounter procedure [facility] Start: 06-19-2019 End: 06-19-2019 Subsequent hospital visit by physician Rochelle ALFRED Laboratory Comment on above: Amenorrhea; Positive urine test; Encounter for supervision of normal in first trimester, unspecified ; Spotting in early Start: 05-09-2019 End: 05-10-2019 Patient encounter procedure KADI DIXON [facility] Start: 05-09-2019 End: 05-09-2019 Subsequent hospital visit by physician Rochelle ALFRED Laboratory Start: 11-05-2017 End: 11-07-2017 Evaluation and management of inpatient ANGELO SPICER [facility] Procedures Date Procedure Procedure Detail Performing Clinician Start: 04-26-2020 Acute hepatitis panel D AWN DESTINY Start: 04-26-2020 Antibody hiv-1&hiv-2 single result KADI DESTINY Start: 04-26-2020 Blood count complete automated KADI DESTINY Start: 04-26-2020 Comprehensive metabo lic panel KADI DESTINY Start: 04-26-2020 Gonadotropin chorion ic qualitative KADI DESTINY Start: 04-26-2020 Iadna hepatitis 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 ant & 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 KADI DESTINY Start: 04-26-2020 Acute hepatitis panel [...] Work Phone: Start: 06-19-2019 Drug screen, qualitate/multi Georgtete E Pool Work Phone: Start: 06-19-2019 Hepatitis [...] SPICER Start: 11-05-2017 Lipid panel ANGELO BARRIOS [employer] WORKER Start: 11-05-2017 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 Start: 11-05-2017 FULL CODE ANGELO [employer] WORKER Start: 11-05-2017 IP CONSULT TO HISTOR Y [...] deficiency anemia type Expected: 12/12/2021, Expires: 02/11/2022 [facility] Work Phone: Comment on above: Expected: 12/12/2021 , Expires: 02/11/2022 Start: 05-18-2021 Influenza vaccination INFLUENZA (#1) [facility] Start: 06-26-2020 Cervical cancer screen [facility] [place] Comment on above: Postponed from 01/11 (Not Indicated) Start: 06-26-2020 Screening for malign ant neoplasm of cervix Cervical cancer [place] Comment on above: Postponed from 01/11 (Not Indicated) Start: 05-18-2020 Influenza vaccination Flu vaccine (# 1) [place] Start: 11-21-2019 End: 11-21-2019 Ancillary Procedure 11/21/2019 Ancillary Procedure Obstetrics and Gynecology 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 Start: 05-18-2019 Influenza vaccination Flu vaccine (# 1) [place] Start: 2015 Cervical cancer screen Cervical canc er [place] Start: 2015 PAP TESTING PAP TESTING [facility] Start: 2013 DTaP/Tdap/Td vaccine (1 - Tdap) DTaP/Tdap/Td vaccine (1 - Tdap) [place] Start: 2013 Urine microalbumin profile DTAP,TDAP,TD (1 - Tdap) [facility] Start: 01-12-2012 HEPATITIS C SCREENING HEPATITIS C SC REENING [facility] Start: 01-12-2012 HIV SCREENING HIV SCREENING [facility] Start: 2009 HPV vaccine (1 - Fem larissa 3-dose series) HPV vaccine (1 - Female 3-dose series) [place] Start: 2007 Varicella Vaccine (1 of 2 - 13+ 2-dose series) Varicella Vaccine (1 of 2 - 13+ 2-dose series) [place] Start: 2006 Adult depression screening assessment DEPRESSION SCREENING [facility] Start: 2005 DTaP/Tdap/Td vaccine (1 - Tdap) DTaP/Tdap/Td vaccine (1 - Tdap) [place] Start: 2005 HPV vaccine (1 - 2-d ose series) HPV vaccine (1 - 2-dose series) [place] Start: 2005 HPV vaccine (1 - Fem larissa 2-dose series) HPV vaccine (1 - Female 2-dose series) [place] Start: 01-12-2000 Pneumococcal 0-64 ye ars Vaccine (1 of 1 - PPSV23) Pneumococcal 0-64 years Vaccine (1 of 1 - PPSV23) [place] Start: 1999 COVID-19 VACCINE (1) COVID-19 VACCIN E (1) [facility] Start: 1995 Varicella vaccine (1 of 2 - 2-dose childhood series) Varicella vaccine (1 of 2 - 2-dose childhood series) [place] End: 11-20-2019 Bacteria identified Cx Nom (U) Urine Culture Microbiology Routine Amenorrhea Positive urine test Encounter for supervision of normal in first trimester, unspecified 1 Occurrences starting 11/20/2019 until 11/20/2019 [place] Comment on above: 1 Occurrences starti ng 11/20/2019 until 11/20/2019 Bacteria identified Cx Nom (U) [place] End: 06-19-2019 Bacteria identified Cx Nom (U) Urine Culture Microbiology Routine Amenorrhea Positive urine test Encounter for supervision of normal in first trimester, unspecified 1 Occurrences starting 06/19/2019 until 06/19/2019 [place] Comment on above: 1 Occurrences starti ng 06/19/2019 until 06/19/2019 End: 11-20-2019 C.trachomatis N.gonorrhoeae DNA, Urine C.trachomatis N.gonorrhoeae DNA, Urine Microbiology Routine Amenorrhea Positive urine test Encounter for supervision of normal in first trimester, unspecified 1 Occurrences starting 11/20/2019 until 11/20/2019 [place], [place] Comment on above: 1 Occurrences starti ng 11/20/2019 until 11/20/2019 C.trachomatis N.gonorrhoeae DNA, Urine [place] End: 06-19-2019 C.trachomatis N.gonorrhoeae DNA, Urine C.trachomatis N.gonorrhoeae DNA, Urine Microbiology Routine Amenorrhea Positive urine test Encounter for supervision of normal in first trimester, unspecified 1 Occurrences starting 06/19/2019 until 06/19/2019 [place] Comment on above: 1 Occurrences starti ng 06/19/2019 until 06/19/2019 End: 04-26-2020 Hepatitis C RNA, quantitative, PCR Hepatitis C RNA, quantitative, PCR Lab Routine Once for 1 Occurrences starting 04/26/2020 until 04/26/2020 [place] Comment on above: Once for 1 Occurrenc es starting 04/26/2020 until 04/26/2020 Hepatitis C RNA, quantitative, PCR Hepatitis C RNA, quantitative, PCR Lab Routine 04/26/2020 7:30 AM EDT [place] End: 05-09-2019 HIV Screen HIV Screen Lab Routine Once for 1 Occurrences starting 05/09/2019 until 05/09/2019 [place] Comment on above: Once for 1 Occurrenc es starting 05/09/2019 until 05/09/2019 HIV Screen HIV Screen [facility]09[facility] Routine Amenorrhea Positive urine test Encounter for supervision of normal in first trimester, unspecified 11/20/2019 12:26 PM EST [facility] Payers Date Payer Category Payer Medicaid [employer] [employer] [id number] 2020-Present [phone] [address] [place], [place] [id number] Medicaid [id number] 2020 Unknown 2016 Unknown [facility] xxxxxxxxxxxx 2016-Present [phone] [place] [phone] xxxxxxxxxxxx [id number] .[id number] 1994 Unknown [id number] 2.840.1.409107.3.579.2.196 1994 Unknown [id number] 2.16.840.1.164537.3.579.2.173 1994 Unknown [id number] 2.16.840.1.681269.3.579.2.173 1994 Unknown [id number] 2.16.840.1.619980.3.579.2.173 1994 Unknown [id number] 2.16.840.1.022661.3.579.2.173 1994 Unknown [id number] 2.16.840.1.171655.3.579.2.593 1994 Unknown [id number] 2.16840.1.804418.3.579.2.593 1994 Unknown [id number] 2.16.840.1.256479.3.579.2.593 1994 Unknown [id number] 2.16.840.1.475728.3.579.2.593 1994 Unknown [id number] 2.16.840.1.806112.3.579.2.593 1994 Unknown [id number] 2.16.840.1.468239.3.579.2.593 1994 Unknown [id number] 2.16.840.1.244875.3.579.2.593 1994 Unknown [id number] 2.16.840.1.793163.3.579.2.593 1994 Unknown [id number] 2.16.840.1.157546.3.579.2.593 1994 Unknown [id number] 2.16.840.1.492061.3.579.2.593 1994 Unknown [id number] 2.16.840.1.372557.3.579.2.125 9 1994 Unknown [id number] 2.16.840.1.915827.3.579.2.125 9 1994 Unknown [id number] 2.16.840.1.415622.3.579.2.125 9 1959 Unknown [id number] Social History Date Type Detail Facility Start: 11-05-2017 End: 10-28-2021 Tobacco smoking status NHIS Never smoker [facility] Start: 11-05-2017 End: 06-19-2019 Alcohol intake No [place], [place] Start: 1995 Sex Assigned At Not on file [place] Start: 06-19-2019 End: 11-20-2019 Tobacco smoking status NHIS Current every day smoker [place] Start: 06-19-2019 End: 11-20-2019 Cigarettes smoked current (pack per day) - Reported [facility] Start: 11-20-2019 Alcohol intake 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 PREOPERATIVE DIAGNOSIS: Missed . POSTOPERATIVE DIAGNOSIS: Missed . ANESTHESIA: General. SURGEON: Yousif Aparicio D.O. SHIP JOINER: None. BLOOD LOSS: 75 mL. URINE OUTPUT: [...] products of conception were removed using a 10-Senegalese suction curette. Excellent hemostasis was noted. The patient tolerated the procedure well. Sponge, lap, and needle counts were correct x 2. All instruments were then removed from the patient's vagina. The patient was taken to the Recovery Room in stable condition. ?? [facility] Note 12-12-2021 Telephone Encounter - Angelia Almazan - 12/12/2021 11:16 AM EDT Note Date & Type Note Facility 12-12-2021 Miscellaneous Notes Pleases sign pending new cbc order. Thanks, Angelia Almazan MA documented in this encounter [facility] Progress note 11-08-2021 Note Date & Type Note Facility 11-08-2021 Note HNO ID: [id number] Author: King Suazo MD Service: ? Author [...] shortness of breath, and is seen at [place] emergency room. Labs revealed a hemoglobin of [...] biceps/brachioradial/patella/achilles. MUSCULOSKELETAL: Neg (more content not included)... 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 Ticketer Expl anation Advance Directives and Living Will Power of Waiter/Waitress Tavern Latest Code Status on File Code Status [...] section and content) DATE CREATED AUTHOR 03/08/2018 [facility] DATE CREATED AUTHOR AUTHOR'S ORGANIZ ATION 04/08/2020 [facility] DATE CREATED AUTHOR AUTHOR'S ORGANIZ ATION 04/28/2020 [facility] DATE CREATED AUTHOR AUTHOR'S ORGANIZ ATION 12/13/2021 [facility] DATE CREATED AUTHOR AUTHOR'S ORGANIZ ATION 12/25/2022 [facility] DATE CREATED AUTHOR AUTHOR'S ORGANIZ ATION 09/07/2023 [facility] [employer] Source Comments (unrecognize d section and content) In the event this informatio n is protected by the Federal Confidentiality of Alcohol and Drug Abuse Patient Records regulations: The Federal rules restrict any use of the information to criminally investigate or prosecute any alcohol or drug abuse patient.[facility] the event this information is protected by the Federal Confidentiality of Alcohol and Drug Abuse Patient Records regulations: The Federal rules restrict any use of the information to criminally investigate or prosecute any alcohol or drug abuse patient.[facility] Reason for Visit (unrecogniz ed section and content) Reason Comments Lab Orders Care Teams (unrecognized sec tion and content) 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 [facility]. provides no warranty or guarantee of the accuracy or completeness of information in this document.
== END 2023-09-18 16:27 | disposition home or self-care (01) ==
LOC: FBCO 07:38 → FBC 15:27 → FBCO 15:30 → FBC 15:32
PROVIDERS: Visit Provider Obstetrics & Gynecology
DX: O41.03X1 Oligohydramnios, third trimester, fetus 1 (principal)
CPT/HCPCS: 59025

== ENCOUNTER 2023-09-21 07:11 | Outpatient (OUT) | payer OTHER, SELFPAY ==
--- OUTSIDE RECORDS SUMMARY | 2023-09-21 07:13 | XMS_ITS | CCD ---
Author Name Unknown Address [id number] [place] [address] Organization [facility] Care Team Providers Care Glass Breaker Name Role Phone ANGELO SPICER Unavailable Unavailable [...] Unavailable NADERER, DR RODO Dickerson Admitting Unavailable [facility] Primary Care Unavaila ble GRECHNY ., ADELITA ORELLANA Consulting Unavailluis CAMARILLO, MYLES Alex Consulting Unavailable GAYE, GURU Consulting Unavailable ALFREDDOYOSEPH, ALIX Consulting Unavailable LINA, KAMILLA Consulting Unavailable SISTER, DANIELA Consulting Unavailable ROBBY ., DR MENENDEZ Consulting Unavailable [facility] Primary Care Unavaila ble ROBBY ., DR MENENDEZ Attending Unavailable ROBBY ., DR MENENDEZ Admitting Unavailable ELENITA, NGOC Consulting Unavailable GEMBUS, AUGUSTUS Consulting Unavailable [facility] Primary Care Unavaila ble ROBBY ., DR MENENDEZ Consulting Unavailable ROBBY ., DR MENENDEZ Attending Unavailable ROBBY ., DR MENENDEZ Admitting Unavailable ZIEBER, DR CHRISTINE Benites Consulting Unavailable ROBBY ., DR MENENDEZ Consulting Unavailable [facility] Primary Care Unavaila ble ROBBY ., [...] Propensity to adverse reactions to drug (disorder) [facility] Repository Medications Current Medications Medication Drug [...] Onset: 11-05-2017 Other aftercare (1 source) Other singe winder (current) drug therapy; Translations: [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 Hemanth Kerr CBC AUTO DIFFon 11-29-2022 BASO # 0.0 103/ul Normal 0.0-0.1 [facility] Comment on above: Performed By: #### C BC #### [facility] [address] [address] [address] Hemanth Kerr Basophils/100 WBC (Bld) 0.7 % Normal 0.2-2.0 [facility] Comment on above: Performed By: #### C BC #### [facility] [address] [address] [address] Hemanth Kerr EO # 0.2 103/ul Normal 0.0-0.7 [facility] Comment on above: Performed By: #### C BC #### [facility] [address] [address] [address] Hemanth Kerr Eosinophils/100 WBC (Bld) 3.3 % Normal 0.9-7.0 [facility] Comment on above: Performed By: #### C BC #### [facility] [address] [place] [address] Dr. Hemanth Kerr Erythrocyte distribution width (RBC) [Ratio] 14.3 % Normal 11.0-15.0 [facility] Comment on above: Performed By: #### C BC #### [facility] [address] [place] [address] Dr. Hemanth Kerr Hematocrit (Bld) [Volume fraction] 37.2 % Normal 36.0-48.0 [facility] Comment on above: Performed By: #### C BC #### [facility] [address] [place] [address] Dr. Hemanth Kerr Hemoglobin (Bld) [Mass/Vol] 11.9 g/dL Critically low 12.0-16.0 [facility] Comment on above: Performed By: #### C BC #### [facility] [address] [place] [address] Dr. Hemanth Kerr IG # 0.01 10e3/ul Normal 0.00-0.03 [facility] Comment on above: Performed By: #### C BC #### [facility] [address] [address] [address] Hemanth Kerr IG % 0.2 % Normal 0.0-0.5 [facility] Comment on above: Performed By: #### C BC #### [facility] [address] [place] [address] Dr. Hemanth Kerr LYMPH # 1.7 103/ul Normal 1.2-3.8 [facility] Comment on above: Performed By: #### C BC #### [facility] [address] [place] [address] Dr. Hemanth Kerr Lymphocytes/100 WBC (Bld) 31.3 % Normal 20.5-60.0 [facility] Comment on above: Performed By: #### C BC #### [facility] [address] [place] [address] Dr. Hemanth Kerr MANUAL DIFF REQ NO Normal [facility] Comment on above: Performed By: #### C BC #### [facility] [address] [place] [address] Dr. Hemanth Kerr MCH (RBC) [Entitic mass] 27.8 pg Normal 26.7-34.0 [facility] Comment on above: Performed By: #### C BC #### [facility] [address] [place] [address] Dr. Hemanth Kerr MCHC (RBC) [Mass/Vol] 32.0 g/dL Normal 29.9-35.2 [facility] Comment on above: Performed By: #### C BC #### [facility] [address] [place] [address] Dr. Hemanth Kerr MCV (RBC) [Entitic vol] 86.9 fL Normal 81.0-99.0 [facility] Comment on above: Performed By: #### C BC #### [facility] [address] [place] [address] Dr. Hemanth Kerr MONO # 0.4 103/ul Normal 0.3-0.8 [facility] Comment on above: Performed By: #### C BC #### [facility] [address] [place] [address] Dr. Hemanth Kerr Monocytes/100 WBC (Bld) 8.0 % Normal 1.7-12.0 [facility] Comment on above: Performed By: #### C BC #### [facility] [address] [place] [address] Dr. Hemanth Kerr NEUT # 3.1 103/ul Normal 1.4-6.5 [facility] Comment on above: Performed By: #### C BC #### [facility] [address] [place] [address] Dr. Hemanth Kerr Neutrophils/100 WBC (Bld) 56.5 % Normal 43.0-75.0 [facility] Comment on above: Performed By: #### C BC #### [facility] [address] [place] [address] Dr. Hemanth Kerr Platelet mean volume (Bld) [Entitic vol] 10.3 fL Normal 9.5-13.5 [facility] Comment on above: Performed By: #### C BC #### [facility] [address] [place] [address] Dr. Hemanth Kerr PLT 258 103/ul Normal 150-450 [facility] Comment on above: Performed By: #### C BC #### [facility] [address] [place] [address] Dr. Hemanth Kerr RBC 4.28 106/ul Normal 4.20-5.40 [facility] Comment on above: Performed By: #### C BC #### [facility] [address] [place] [address] Dr. Hemanth Kerr WBC 5.4 103/ul Normal 4.0-11.0 [facility] Comment on above: Performed By: #### C BC #### [facility] [address] [place] [address] Dr. Hemanth Kerr PROF 14(COMP METB)on 023 Albumin [Mass/Vol] 3.1 g/dL Critically low 3.4-5.0 [facility] Comment on above: Performed By: #### C MP #### [facility] [address] [place] [address] Dr. Hemanth Kerr Albumin/Globulin [Mass ratio] 1.3 {ratio} Normal [facility] Comment on above: Performed By: #### C MP #### [facility] [address] [address] [address] Hemanth Kerr ALP [Catalytic activity/Vol] 56 U/L Normal 46-116 [facility] Comment on above: Performed By: #### C MP #### [facility] [address] [address] [address] Hemanth Kerr ALT [Catalytic activity/Vol] 34 U/L Normal 14-59 [facility] Comment on above: Performed By: #### C MP #### [facility] [address] [place] [address] Dr. Hemanth Kerr Anion gap [Moles/Vol] 7.0 mmol/L Normal [facility] Comment on above: Performed By: #### C MP #### [facility] [address] [place] [address] Dr. Hemanth Kerr AST [Catalytic activity/Vol] 29 U/L Normal 15-37 [facility] Comment on above: Performed By: #### C MP #### [facility] [address] [place] [address] Dr. Hemanth Kerr Bilirubin [Mass/Vol] 0.4 mg/dL Normal 0.2-1.0 [facility] Comment on above: Performed By: #### C MP #### [facility] [address] [place] [address] Dr. Hemanth Kerr Calcium [Mass/Vol] 8.3 mg/dL Critically low 8.5-10.1 [facility] Comment on above: Performed By: #### C MP #### [facility] [address] [place] [address] Dr. Hemanth Kerr Chloride [Moles/Vol] 110 mmol/L Critically high 98-107 [facility] Comment on above: Performed By: #### C MP #### [facility] [address] [place] [address] Dr. Hemanth Kerr CO2 [Moles/Vol] 27.6 mmol/L Normal 21.0-32.0 [facility] Comment on above: Performed By: #### C MP #### [facility] [address] [place] [address] Dr. Hemanth Kerr Creatinine [Mass/Vol] 0.61 mg/dL Normal 0.55-1.02 [facility] Comment on above: Performed By: #### C MP #### [facility] [address] [address] [address] Hemanth Kerr EGFR-AF DJIBOUTIAN >60 Normal >=60 [facility] Comment on above: Performed By: #### C MP #### [facility] [address] [address] [address] Hemanth Kerr EGFR-NON AF DJIBOUTIAN >60 Normal >=60 [facility] Comment on above: Performed By: #### C MP #### [facility] [address] [address] [address] Hemanth Kerr Globulin (S) [Mass/Vol] 2.4 g/dL Normal [facility] Comment on above: Performed By: #### C MP #### [facility] [address] [place] [address] Dr. Hemanth Kerr Glucose [Mass/Vol] 110 mg/dL Critically high 74-106 [facility] Comment on above: Performed By: #### C MP #### [facility] [address] [address] [address] Hemanth Kerr Potassium [Moles/Vol] 2.6 mmol/L Critically low 3.5-5.1 [facility] Comment on above: Performed By: #### C MP #### [facility] [address] [place] [address] Dr. Hemanth Kerr Protein [Mass/Vol] 5.5 g/dL Critically low 6.4-8.2 Th [facility] Comment on above: Performed By: #### C MP #### [facility] [address] [address] [address] Hemanth Kerr Sodium [Moles/Vol] 142 mmol/L Normal 136-145 [facility] Comment on above: Performed By: #### C MP #### [facility] [address] [place] [address] Dr. Hemanth Kerr Urea nitrogen [Mass/Vol] 12.0 mg/dL Normal 7.0-18.0 [facility] Comment on above: Performed By: #### C MP #### [facility] [address] [address] [address] Hemanth Kerr Urea nitrogen/Creatinine [Mass ratio] 19.7 mg/mg Normal [facility] Comment on above: Performed By: #### C MP #### [facility] [address] [address] [address] Hemanth Kerr XR HIP LT 2 [...] ALIX GRANADOS Date: 2022-11-28 22:13 Normal [facility] ACETAMINOPHENon 11-28-2022 Acetaminophen [Mass/Vol] ug/mL Critically low 10.0-30.0 [facility] Comment on above: Performed By: #### C MP #### [facility] [address] [address] [address] Hemanth Kerr ACETONE SERUMon 11-28-2022 ACETONE Negative Normal NEGATIVE [facility] Comment on above: Performed By: #### P REG #### [facility] [address] [address] [address] Hemanth Kerr AMMONIAon 11-28-2022 Ammonia (P) [Moles/Vol] 24 umol/L Normal 11-32 [facility] Comment on above: Performed By: #### L ACT #### [facility] [address] [address] [address] Hemanth Kerr CBC AUTO DIFFon 11-28-2022 BASO # 0.0 103/ul Normal 0.0-0.1 [facility] Comment on above: Performed By: #### L ACT #### [facility] [address] [address] [address] Hemanth Kerr Basophils/100 WBC (Bld) 0.4 % Normal 0.2-2.0 [facility] Comment on above: Performed By: #### L ACT #### [facility] [address] [place] [address] Dr. Hemanth Kerr EO # 0.3 103/ul Normal 0.0-0.7 [facility] Comment on above: Performed By: #### L ACT #### [facility] [address] [place] [address] Dr. Hemanth Kerr Eosinophils/100 WBC (Bld) 3.1 % Normal 0.9-7.0 [facility] Comment on above: Performed By: #### L ACT #### [facility] [address] [place] [address] Dr. Hemanth Kerr Erythrocyte distribution width (RBC) [Ratio] 14.3 % Normal 11.0-15.0 [facility] Comment on above: Performed By: #### L ACT #### [facility] [address] [place] [address] Dr. Hemanth Kerr Hematocrit (Bld) [Volume fraction] 41.3 % Normal 36.0-48.0 [facility] Comment on above: Performed By: #### L ACT #### [facility] [address] [place] [address] Dr. Hemanth Kerr Hemoglobin (Bld) [Mass/Vol] 13.3 g/dL Normal 12.0-16.0 [facility] Comment on above: Performed By: #### L ACT #### [facility] [address] [place] [address] Dr. Hemanth Kerr IG # 0.02 10e3/ul Normal 0.00-0.03 [facility] Comment on above: Performed By: #### L ACT #### [facility] [address] [place] [address] Dr. Hemanth Kerr IG % 0.2 % Normal 0.0-0.5 [facility] Comment on above: Performed By: #### L ACT #### [facility] [address] [place] [address] Dr. Hemanth Kerr LYMPH # 2.4 103/ul Normal 1.2-3.8 [facility] Comment on above: Performed By: #### L ACT #### [facility] [address] [place] [address] Dr. Hemanth Kerr Lymphocytes/100 WBC (Bld) 26.3 % Normal 20.5-60.0 [facility] Comment on above: Performed By: #### L ACT #### [facility] [address] [place] [address] Dr. Hemanth Kerr MANUAL DIFF REQ NO Normal [facility] Comment on above: Performed By: #### L ACT #### [facility] [address] [place] [address] Dr. Hemanth Kerr MCH (RBC) [Entitic mass] 27.4 pg Normal 26.7-34.0 [facility] Comment on above: Performed By: #### L ACT #### [facility] [address] [place] [address] Dr. Hemanth Kerr MCHC (RBC) [Mass/Vol] 32.2 g/dL Normal 29.9-35.2 [facility] Comment on above: Performed By: #### L ACT #### [facility] [address] [place] [address] Dr. Hemanth Kerr MCV (RBC) [Entitic vol] 85.0 fL Normal 81.0-99.0 [facility] Comment on above: Performed By: #### L ACT #### [facility] [address] [place] [address] Dr. Hemanth Kerr MONO # 0.7 103/ul Normal 0.3-0.8 [facility] Comment on above: Performed By: #### L ACT #### [facility] [address] [place] [address] Dr. Hemanth Kerr Monocytes/100 WBC (Bld) 7.3 % Normal 1.7-12.0 [facility] Comment on above: Performed By: #### L ACT #### [facility] [address] [place] [address] Dr. Hemanth Kerr NEUT # 5.7 103/ul Normal 1.4-6.5 [facility] Comment on above: Performed By: #### L ACT #### [facility] [address] [address] [address] Hemanth Kerr Neutrophils/100 WBC (Bld) 62.7 % Normal 43.0-75.0 [facility] Comment on above: Performed By: #### L ACT #### [facility] [address] [address] [address] Hemanth Kerr Platelet mean volume (Bld) [Entitic vol] 10.6 fL Normal 9.5-13.5 [facility] Comment on above: Performed By: #### L ACT #### [facility] [address] [place] [address] Dr. Hemanth Kerr PLT 347 103/ul Normal 150-450 [facility] Comment on above: Performed By: #### L ACT #### [facility] [address] [place] [address] Dr. Hemanth Kerr RBC 4.86 106/ul Normal 4.20-5.40 [facility] Comment on above: Performed By: #### L ACT #### [facility] [address] [place] [address] Dr. Hemanth Kerr WBC 9.1 103/ul Normal 4.0-11.0 [facility] Comment on above: Performed By: #### L ACT #### [facility] [address] [place] [address] CSPINE WO CONon [...] KAMILLA MILLS Date: 2022-11-28 17:54 Normal [facility] CT HEAD WO CONon 11-28-2022 CT [...] KAMILLA MILLS Date: 2022-11-28 18:40 Normal [facility] CULTURE BLOODon 11-28-2022 Microscopic examination of blood, culture Culture Observations: NO GROWTH AT 5 DAYS. Normal [facility] Comment on above: Performed By: #### C BC #### [facility] [address] [address] [address] Hemanth Kerr Microscopic examination of blood, culture Culture Observations: NO GROWTH AT 5 DAYS. Normal [facility] Comment on above: Performed By: #### B [id number] #### [facility] [address] [place] [address] Dr. Hemanth Kerr Covid-19 PCR ([facility])on 11-15 SARS-CoV-2 (COVID-19) RNA ELMO+probe Ql (Unsp spec) Not detected Normal NOT DETECTED [facility] Comment on above: Result Comment: When [...] for this test is supported by the [employer] Technician of Health and Human Service's declaration that [...] used). Performed By: #### L ACT #### [facility] [address] [place] [address] Dr. Hemanth Kerr DRUG SCREEN RAPID (URINE)on 11-28-2022 AMP Positive Abnormal NEGATIVE [facility] Comment on above: Performed By: #### P REG #### [facility] [address] [place] [address] Dr. Hemanth Kerr BAR Negative Normal NEGATIVE [facility] Comment on above: Performed By: #### P REG #### [facility] [address] [place] [address] Dr. Hemanth Kerr BUP Negative Normal NEGATIVE [facility] Comment on above: Performed By: #### P REG #### [facility] [address] [place] [address] Dr. Hemanth Kerr BZO Negative Normal NEGATIVE [facility] Comment on above: Performed By: #### P REG #### [facility] [address] [place] [address] Dr. Hemanth Kerr YOLANDA Negative Normal NEGATIVE [facility] Comment on above: Performed By: #### P REG #### [facility] [address] [place] [address] Dr. Hemanth Kerr CUT-OFFS SEE BELOW Normal [facility] Comment on above: Result Comment: AMP [...] ng/mL Performed By: #### P REG #### [facility] [address] [place] [address] Dr. Hemanth Kerr DRUG CUT HEADER DRUG CLASS TEST SYSTEM CUT-OFF CONCENTRATIONS ARE FOLLOWS: Normal [facility] Comment on above: Performed By: #### P REG #### [facility] [address] [place] [address] Dr. Hemanth Kerr mAMP Positive Abnormal NEGATIVE [facility] Comment on above: Performed By: #### P REG #### [facility] [address] [place] [address] Dr. Hemanth Kerr MTD Negative Normal NEGATIVE [facility] Comment on above: Performed By: #### P REG #### [facility] [address] [place] [address] Dr. Hemanth Kerr OPI Negative Normal NEGATIVE [facility] Comment on above: Performed By: #### P REG #### [facility] [address] [place] [address] Dr. Hemanth Kerr OXY Negative Normal NEGATIVE [facility] Comment on above: Performed By: #### P REG #### [facility] [address] [place] [address] Dr. Hemanth Kerr PCP Negative Normal NEGATIVE [facility] Comment on above: Performed By: #### P REG #### [facility] [address] [place] [address] Dr. Hemanth Kerr PPX Negative Normal NEGATIVE [facility] Comment on above: Performed By: #### P REG #### [facility] [address] [address] [address] Hemanth Kerr TCA Negative Normal NEGATIVE [facility] Comment on above: Performed By: #### P REG #### [facility] [address] [place] [address] Dr. Hemanth Kerr THC Negative Normal NEGATIVE [facility] Comment on above: Performed By: #### P REG #### [facility] [address] [place] [address] Dr. Hemanth Kerr ER URINE PROFILEon 3 Bilirubin Ql (U) Negative Normal NEGATIVE [facility] Comment on above: Performed By: #### P REG #### [facility] [address] [place] [address] Dr. Hemanth Kerr Clarity (U) CLEAR Normal CLEAR [facility] Comment on above: Performed By: #### P REG #### [facility] [address] [place] [address] Dr. Hemanth Kerr Color (U) LT. YELLOW Normal YELLOW [facility] Comment on above: Performed By: #### P REG #### [facility] [address] [place] [address] Dr. Hemanth Kerr ERUAbi A micrscopic examination will be performed if indicated. Normal [facility] Comment on above: Performed By: #### P REG #### [facility] [address] [place] [address] Dr. Hemanth Kerr Glucose Ql (U) Negative Normal NEGATIVE [facility] Comment on above: Performed By: #### P REG #### [facility] [address] [place] [address] Dr. Hemanth Kerr Hemoglobin Ql (U) Negative Normal NEGATIVE [facility] Comment on above: Performed By: #### P REG #### [facility] [address] [place] [address] Dr. Hemanth Kerr Ketones Ql (U) Negative Normal NEGATIVE [facility] Comment on above: Performed By: #### P REG #### [facility] [address] [place] [address] Dr. Hemanth Kerr LEUKOCYTES Negative Normal NEGATIVE [facility] Comment on above: Performed By: #### P REG #### [facility] [address] [place] [address] Dr. Hemanth Kerr Nitrite Ql (U) Positive Abnormal NEGATIVE [facility] Comment on above: Performed By: #### P REG #### [facility] [address] [place] [address] Dr. Hemanth Kerr pH (U) 7.5 [pH] Normal 5-9 [facility] Comment on above: Performed By: #### P REG #### [facility] [address] [place] [address] Dr. Hemanth Kerr SPEC GRAVITY 1.020 Normal 1.005-<=1.025 [facility] Comment on above: Performed By: #### P REG #### [facility] [address] [place] [address] Dr. Hemanth Kerr UA PROTEIN TRACE Normal NEGATIVE/ TRACE [facility] Comment on above: Performed By: #### P REG #### [facility] [address] [place] [address] Dr. Hemanth Kerr UR MICRO IND INDICATED Normal [facility] Comment on above: Performed By: #### P REG #### [facility] [address] [place] [address] Dr. Hemanth Kerr Urobilinogen Qn (U) 1.0 {Jose'U}/dL Normal 0.2 - 1. 0 [facility] Comment on above: Performed By: #### P REG #### [facility] [address] [place] [address] Dr. Hemanth Kerr ETHANOL (BLD ALC)on 11-29-19 23 ALC NOTE NOTE: 80 mg/dl is th e legal limit for a blood alcohol level Normal [facility] Comment on above: Performed By: #### C MP #### [facility] [address] [place] [address] Dr. Hemanth Kerr Ethanol [Mass/Vol] mg/dL Normal [facility] Comment on above: Performed By: #### C MP #### [facility] [address] [place] [address] Dr. Hemanth Kerr LACTATE/LACTIC ACIDon 2022 Lactate [Moles/Vol] 0.7 mmol/L Normal 0.4-2.0 [facility] Comment on above: Performed By: #### L ACT #### [facility] [address] [address] [address] Hemanth Kerr Lactate [Moles/Vol] 9.0 mmol/L Critically high 0.4-2.0 [facility] Comment on above: Performed By: #### L ACT #### [facility] [address] [address] [address] Hemanth Kerr PH VENOUS BLOODon 11-28-2022 PCO2 VENOUS 36.6 mmHg Critically low 40.0-52.0 [facility] Comment on above: Performed By: #### P HVEN #### [facility] [address] [place] [address] Dr. Hemanth Krer pH VENOUS 7.354 Normal 7.330-7.430 [facility] Comment on above: Performed By: #### P HVEN #### [facility] [address] [place] [address] Dr. Hemanth Kerr POINT OF CARE GLUCOSEon 11-15 Glucose [Mass/Vol] 127 mg/dL Critically high 74-106 [facility] Comment on above: Performed By: #### C BC #### [facility] [address] [place] [address] Dr. Hemanth Kerr PREG HCG QUALon 11-28-2022 , QUAL Negative Normal NEGATIVE [facility] Comment on above: Performed By: #### P REG #### [facility] [address] [place] [address] Dr. Hemanth Kerr PROF 14(COMP METB)on 023 Albumin [Mass/Vol] 3.7 g/dL Normal 3.4-5.0 [facility] Comment on above: Performed By: #### L ACT #### [facility] [address] [place] [address] Dr. Hemanth Kerr Albumin/Globulin [Mass ratio] 1.3 {ratio} Normal [facility] Comment on above: Performed By: #### L ACT #### [facility] [address] [address] [address] Hemanth Kerr ALP [Catalytic activity/Vol] 72 U/L Normal 46-116 [facility] Comment on above: Performed By: #### L ACT #### [facility] [address] [address] [address] Hemanth Kerr ALT [Catalytic activity/Vol] 42 U/L Normal 14-59 [facility] Comment on above: Performed By: #### L ACT #### [facility] [address] [address] [address] Hemanth Kerr Anion gap [Moles/Vol] 16.3 mmol/L Normal [facility] Comment on above: Performed By: #### L ACT #### [facility] [address] [place] [address] Dr. Hemanth Kerr AST [Catalytic activity/Vol] 45 U/L Critically high 15-37 [facility] Comment on above: Performed By: #### L ACT #### [facility] [address] [place] [address] Dr. Hemanth Kerr Bilirubin [Mass/Vol] 0.4 mg/dL Normal 0.2-1.0 [facility] Comment on above: Performed By: #### L ACT #### [facility] [address] [place] [address] Dr. Hemanth Kerr Calcium [Mass/Vol] 8.8 mg/dL Normal 8.5-10.1 [facility] Comment on above: Performed By: #### L ACT #### [facility] [address] [place] [address] Dr. Hemanth Kerr Chloride [Moles/Vol] 107 mmol/L Normal 98-107 [facility] Comment on above: Performed By: #### L ACT #### [facility] [address] [address] [address] Hemanth Kerr CO2 [Moles/Vol] 21.8 mmol/L Normal 21.0-32.0 [facility] Comment on above: Performed By: #### L ACT #### [facility] [address] [address] [address] Hemanth Kerr Creatinine [Mass/Vol] 1.32 mg/dL Critically high 0.55-1.02 [facility] Comment on above: Performed By: #### L ACT #### [facility] [address] [address] [address] Hemanth Kerr EGFR-AF DJIBOUTIAN 58 mL/min/1.73m2 Critically low >=60 [facility] Comment on above: Performed By: #### L ACT #### [facility] [address] [address] [address] Hemanth Kerr EGFR-NON AF DJIBOUTIAN 48 mL/min/1.73m2 Critically low >=60 [facility] Comment on above: Performed By: #### L ACT #### [facility] [address] [place] [address] Dr. Hemanth Kerr Globulin (S) [Mass/Vol] 2.9 g/dL Normal [facility] Comment on above: Performed By: #### L ACT #### [facility] [address] [address] [address] Hemanth Kerr Glucose [Mass/Vol] 143 mg/dL Critically high 74-106 [facility] Comment on above: Performed By: #### L ACT #### [facility] [address] [address] [address] Hemanth Krer Potassium [Moles/Vol] 3.1 mmol/L Critically low 3.5-5.1 [facility] Comment on above: Performed By: #### L ACT #### [facility] [address] [address] [address] Hemanth Kerr Protein [Mass/Vol] 6.6 g/dL Normal 6.4-8.2 [facility] Comment on above: Performed By: #### L ACT #### [facility] [address] [address] [address] Hemanth Kerr Sodium [Moles/Vol] 142 mmol/L Normal 136-145 [facility] Comment on above: Performed By: #### L ACT #### [facility] [address] [address] [address] Hemanth Kerr Urea nitrogen [Mass/Vol] 17.0 mg/dL Normal 7.0-18.0 [facility] Comment on above: Performed By: #### L ACT #### [facility] [address] [place] [address] Dr. Hemanth Kerr Urea nitrogen/Creatinine [Mass ratio] 12.9 mg/mg Normal [facility] Comment on above: Performed By: #### L ACT #### [facility] [address] [place] [address] Dr. Hemanth Kerr PROTIMEon 11-28-2022 INR Coag (PPP) [Relative time] 0.97 {INR} Normal [facility] Comment on above: Performed By: #### P T, PTT #### [facility] [address] [place] [address] Dr. Hemanth Kerr INR GUIDELINES SEE BELOW Normal [facility] Comment on above: Result Comment: CHAN RED INR: 2.0 - 3.0 CONDITIONS NOT LISTED BELOW 2.5 - 3.5 FOR PROSTHETIC HEART VALVE REPLACEMENT 2.5 - 3.5 RECURRENT THROMBOSIS Performed By: #### P T, PTT #### [facility] [address] [place] [address] Dr. Hemanth Kerr PT Coag (PPP) [Time] 10.3 s Normal 9.0-11.6 [facility] Comment on above: Performed By: #### P T, PTT #### [facility] [address] [place] [address] Dr. Hemanth Kerr PTTon 11-28-2022 aPTT Coag (Bld) [Time] 25.4 s Normal 22.3-36.2 [facility] Comment on above: Performed By: #### P T, PTT #### [facility] [address] [place] [address] Dr. Hemanth Kerr SALICYLATEon 11-28-2022 SALICYLATE <2.8 Normal <=19.9 [facility] Comment on above: Performed By: #### C MP #### [facility] [address] [place] [address] Dr. Hemanth Kerr TROPONIN, HIGH SENSITIVITYon 11-28-2022 HSTROP 4.2 pg/mL Normal 4.0-51.3 [facility] Comment on above: Result Comment: CUT- OFF POINTS HAVE BEEN ESTABLISHED BASED ON THE FOURTH UNIVERSAL DEFINITIONS OF MYOCARDIAL INFARCTION. THE UPPER REFERENCE LIMIT (URL) OF TROPONIN, DEFINED THE 99TH PERCENTILE OF cTnI DISTRIBUTION IN A REFERENCE POPULATION, HAS BEEN CONFIRMED THE DECISION THRESHOLD FOR RI DIAGNOSIS. Performed By: #### C MP #### [facility] [address] [place] [address] Dr. Hemanth Kerr TSHon 11-28-2022 TSH 3.476 uIU/mL Normal 0.358-3.740 [facility] Comment on above: Performed By: #### L ACT #### [facility] [address] [place] [address] Dr. Hemanth Kerr URINE MICROSCOPIC ONLYon BACTERIA LARGE Abnormal NONE SEEN [facility] Comment on above: Performed By: #### P REG #### [facility] [address] [place] [address] Dr. Hemanth Kerr Bacteria identified Cx Nom (U) INDICATED Normal [facility] Comment on above: Performed By: #### P REG #### [facility] [address] [place] [address] Dr. Hemanth Kerr CAST SEEN Abnormal NONE SEEN [facility] Comment on above: Performed By: #### P REG #### [facility] [address] [place] [address] Dr. Hemanth Kerr COARSE GRANULAR CAST RARE Normal [facility] Comment on above: Performed By: #### P REG #### [facility] [address] [place] [address] Dr. Hemanth Kerr Crystals LM Nom (Urine sed) NONE SEEN Normal NONE SEEN [facility] Comment on above: Performed By: #### P REG #### [facility] [address] [place] [address] Dr. Hemanth Kerr Epithelial cells LM Ql (Urine sed) RARE Normal NONE SEEN /RARE [facility] Comment on above: Performed By: #### P REG #### [facility] [address] [place], [place] [id number] Dr. Hemanth Kerr MUCOUS NONE SEEN Normal NONE SEEN [facility] Comment on above: Performed By: #### P REG #### [facility] [address] [place] [address] Dr. Hemanth Kerr RBC 0-2 Normal 0-2 [facility] Comment on above: Performed By: #### P REG #### [facility] [address] [place] [address] Dr. Hemanth Kerr WBC 2-5 Abnormal NONE SEEN [facility] Comment on above: Performed By: #### P REG #### [facility] [address] [place] [address] Dr. Hemanth Kerr XR CHEST 1 Von [...] KAMILLA MILLS Date: 2022-11-28 17:39 Normal [facility] CULTURE URINEon 10-13-2022 CULTURE URINE Isolate [...] Trimethoprim/Sulfamet hoxazole >=320 R F Normal [facility] Comment on above: Performed By: #### U RCX #### [facility] [address] [address] [address] Hemanth Kerr CBC AUTO DIFFon 10-11-2022 BASO # 0.0 103/ul Normal 0.0-0.1 [facility] Comment on above: Performed By: #### C BC #### [facility] [address] [address] [address] Hemanth Kerr Basophils/100 WBC (Bld) 0.3 % Normal 0.2-2.0 [facility] Comment on above: Performed By: #### C BC #### [facility] [address] [address] [address] Hemanth Kerr EO # 0.0 103/ul Normal 0.0-0.7 [facility] Comment on above: Performed By: #### C BC #### [facility] [address] [place] [address] Dr. Hemanth Kerr Eosinophils/100 WBC (Bld) 0.4 % Critically low 0.9-7.0 [facility] Comment on above: Performed By: #### C BC #### [facility] [address] [place] [address] Dr. Hemanth Kerr Erythrocyte distribution width (RBC) [Ratio] 12.2 % Normal 11.0-15.0 [facility] Comment on above: Performed By: #### C BC #### [facility] [address] [place] [address] Dr. Hemanth Kerr Hematocrit (Bld) [Volume fraction] 38.6 % Normal 36.0-48.0 [facility] Comment on above: Performed By: #### C BC #### [facility] [address] [place] [address] Dr. Hemanth Kerr Hemoglobin (Bld) [Mass/Vol] 12.0 g/dL Normal 12.0-16.0 [facility] Comment on above: Performed By: #### C BC #### [facility] [address] [place] [address] Dr. Hemanth Kerr IG # 0.07 10e3/ul Critically high 0.00-0.03 [facility] Comment on above: Performed By: #### C BC #### [facility] [address] [place] [address] Dr. Hemanth Kerr IG % 0.7 % Critically high 0.0-0.5 [facility] Comment on above: Performed By: #### C BC #### [facility] [address] [place] [address] Dr. Hemanth Kerr LYMPH # 1.2 103/ul Normal 1.2-3.8 [facility] Comment on above: Performed By: #### C BC #### [facility] [address] [place] [address] Dr. Hemanth Kerr Lymphocytes/100 WBC (Bld) 12.1 % Critically low 20.5-60.0 [facility] Comment on above: Performed By: #### C BC #### [facility] [address] [place] [address] Dr. Hemanth Kerr MANUAL DIFF REQ NO Normal [facility] Comment on above: Performed By: #### C BC #### [facility] [address] [place] [address] Dr. Hemanth Kerr MCH (RBC) [Entitic mass] 28.0 pg Normal 26.7-34.0 [facility] Comment on above: Performed By: #### C BC #### [facility] [address] [place] [address] Dr. Hemanth Kerr MCHC (RBC) [Mass/Vol] 31.1 g/dL Normal 29.9-35.2 [facility] Comment on above: Performed By: #### C BC #### [facility] [address] [place] [address] Dr. Hemanth Kerr MCV (RBC) [Entitic vol] 90.2 fL Normal 81.0-99.0 [facility] Comment on above: Performed By: #### C BC #### [facility] [address] [place] [address] Dr. Hemanth Kerr MONO # 0.7 103/ul Normal 0.3-0.8 [facility] Comment on above: Performed By: #### C BC #### [facility] [address] [address] [address] Hemanth Kerr Monocytes/100 WBC (Bld) 6.9 % Normal 1.7-12.0 [facility] Comment on above: Performed By: #### C BC #### [facility] [address] [address] [address] Hemanth Kerr NEUT # 8.1 103/ul Critically high 1.4-6.5 [facility] Comment on above: Performed By: #### C BC #### [facility] [address] [address] [address] Hemanth Kerr Neutrophils/100 WBC (Bld) 79.6 % Critically high 43.0-75.0 [facility] Comment on above: Performed By: #### C BC #### [facility] [address] [place] [address] Dr. Hemanth Kerr Platelet mean volume (Bld) [Entitic vol] 10.8 fL Normal 9.5-13.5 [facility] Comment on above: Performed By: #### C BC #### [facility] [address] [address] [address] Hemanth Kerr PLT 452 103/ul Critically high 150-450 [facility] Comment on above: Performed By: #### C BC #### [facility] [address] [address] [address] Hemanth Kerr RBC 4.28 106/ul Normal 4.20-5.40 [facility] Comment on above: Performed By: #### C BC #### [facility] [address] [address] [address] Hemanth Kerr WBC 10.1 103/ul Normal 4.0-11.0 [facility] Comment on above: Performed By: #### C BC #### [facility] [address] [place] [address] ABD/PELVIS WO CONon [...] by: CHRISTINE SÁNCHEZ Date: 2022-10-11 14:45 Normal [facility] ER URINE PROFILEon 3 Bilirubin Ql (U) Negative Normal NEGATIVE [facility] Comment on above: Performed By: #### L ACT #### [facility] [address] [place] [address] Dr. Hemanth Kerr Clarity (U) CLEAR Normal CLEAR [facility] Comment on above: Performed By: #### L ACT #### [facility] [address] [address] [address] Hemanth Kerr Color (U) LT. YELLOW Normal YELLOW [facility] Comment on above: Performed By: #### L ACT #### [facility] [address] [place] [address] Dr. Hemanth Kerr ERUAHD A micrscopic examination will be performed if indicated. Normal [facility] Comment on above: Performed By: #### L ACT #### [facility] [address] [address] [address] Hemanth Kerr Glucose Ql (U) Negative Normal NEGATIVE [facility] Comment on above: Performed By: #### L ACT #### [facility] [address] [address] [address] Hemanth Kerr Hemoglobin Ql (U) LARGE Abnormal NEGATIVE [facility] Comment on above: Performed By: #### L ACT #### [facility] [address] [address] [address] Hemanth Kerr Ketones Ql (U) Negative Normal NEGATIVE [facility] Comment on above: Performed By: #### L ACT #### [facility] [address] [place] [address] Dr. Hemanth Kerr LEUKOCYTES SMALL Abnormal NEGATIVE [facility] Comment on above: Performed By: #### L ACT #### [facility] [address] [place] [address] Dr. Hemanth Kerr Nitrite Ql (U) Negative Normal NEGATIVE [facility] Comment on above: Performed By: #### L ACT #### [facility] [address] [address] [address] Hemanth Kerr pH (U) 6.5 [pH] Normal 5-9 [facility] Comment on above: Performed By: #### L ACT #### [facility] [address] [place] [address] Dr. Hemanth Kerr Protein (U) [Mass/Vol] 30 mg/dL Abnormal NEGATIVE/ TRACE [facility] Comment on above: Performed By: #### L ACT #### [facility] [address] [place] [address] Dr. Hemanth Kerr SPEC GRAVITY <=1.005 Abnormal 1.005-<=1.025 [facility] Comment on above: Performed By: #### L ACT #### [facility] [address] [place] [address] Dr. Hemanth Kerr UR MICRO IND INDICATED Normal [facility] Comment on above: Performed By: #### L ACT #### [facility] [address] [address] [address] Hemanth Kerr Urobilinogen Qn (U) 1.0 {Jose'U}/dL Normal 0.2 - 1. 0 [facility] Comment on above: Performed By: #### L ACT #### [facility] [address] [address] [address] Hemanth Kerr PREG HCG QUALon 10-11-2022 , QUAL Negative Normal NEGATIVE [facility] Comment on above: Performed By: #### P REG #### [facility] [address] [address] [address] Hemanth Kerr PROF CHEM 8 (BAS METB)on Anion gap [Moles/Vol] 9.4 mmol/L Normal [facility] Comment on above: Performed By: #### L ACT #### [facility] [address] [place] [address] Dr. Hemanth Kerr Calcium [Mass/Vol] 8.8 mg/dL Normal 8.5-10.1 [facility] Comment on above: Performed By: #### L ACT #### [facility] [address] [address] [address] Hemanth Kerr Chloride [Moles/Vol] 97 mmol/L Critically low 98-107 [facility] Comment on above: Performed By: #### L ACT #### [facility] [address] [place] [address] Dr. Hemanth Kerr CO2 [Moles/Vol] 32.4 mmol/L Critically high 21.0-32.0 [facility] Comment on above: Performed By: #### L ACT #### [facility] [address] [place] [address] Dr. Hemanth Kerr Creatinine [Mass/Vol] 0.65 mg/dL Normal 0.55-1.02 [facility] Comment on above: Performed By: #### L ACT #### [facility] [address] [place] [address] Dr. Hemanth Kerr EGFR-AF DJIBOUTIAN >60 Normal >=60 [facility] Comment on above: Performed By: #### L ACT #### [facility] [address] [address] [address] Hemanth Kerr EGFR-NON AF DJIBOUTIAN >60 Normal >=60 [facility] Comment on above: Performed By: #### L ACT #### [facility] [address] [place] [address] Dr. Hemanth Kerr Glucose [Mass/Vol] 117 mg/dL Critically high 74-106 T [facility] Comment on above: Performed By: #### L ACT #### [facility] [address] [address] [address] Hemanth Kerr Potassium [Moles/Vol] 2.8 mmol/L Critically low 3.5-5.1 [facility] Comment on above: Performed By: #### L ACT #### [facility] [address] [place] [address] Dr. Hemanth Kerr Sodium [Moles/Vol] 135 mmol/L Critically low 136-145 [facility] Comment on above: Performed By: #### L ACT #### [facility] [address] [place] [address] Dr. Hemanth Kerr Urea nitrogen [Mass/Vol] 8.0 mg/dL Normal 7.0-18.0 [facility] Comment on above: Performed By: #### L ACT #### [facility] [address] [place] [address] Dr. Hemanth Kerr Urea nitrogen/Creatinine [Mass ratio] 12.3 mg/mg Normal [facility] Comment on above: Performed By: #### L ACT #### [facility] [address] [place] [address] Dr. Hemanth Kerr URINE MICROSCOPIC ONLYon BACTERIA SMALL Abnormal NONE SEEN [facility] Comment on above: Performed By: #### L ACT #### [facility] [address] [place], [place] [id number] Dr. Hemanth Kerr Bacteria identified Cx Nom (U) INDICATED Normal [facility] Comment on above: Performed By: #### L ACT #### [facility] [address] [place] [address] Dr. Hemanth Kerr CAST NONE SEEN Normal NONE SEEN [facility] Comment on above: Performed By: #### L ACT #### [facility] [address] [place] [address] Dr. Hemanth Kerr Crystals LM Nom (Urine sed) NONE SEEN Normal NONE SEEN [facility] Comment on above: Performed By: #### L ACT #### [facility] [address] [place] [address] Dr. Hemanth Kerr Epithelial cells LM Ql (Urine sed) FEW Abnormal NONE SEEN /RARE [facility] Comment on above: Performed By: #### L ACT #### [facility] [address] [place] [address] Dr. Hemanth Kerr MUCOUS NONE SEEN Normal NONE SEEN [facility] Comment on above: Performed By: #### L ACT #### [facility] [address] [place] [address] Dr. Hemanth Kerr RBC 0-2 Normal 0-2 [facility] Comment on above: Performed By: #### L ACT #### [facility] [address] [place] [address] Dr. Hemanth Kerr WBC 10-20 Abnormal NONE SEEN [facility] Comment on above: Performed By: #### L ACT #### [facility] [address] [place] [address] Dr. Hemanth Kerr PREG QUANT HCGon 09-12-2022 HCG QUANT 66 mIU/mL Normal [facility] Comment on above: Performed By: #### C MP #### [facility] [address] [place] [address] Dr. Hemanth Kerr HCG RANGE SEE BELOW Normal [facility] Comment on above: Result Comment: 5-50 0.2-1 WEEK 50-500 1-2 WEEKS 100-5,000 2-3 WEEKS 500-10,000 3-4 WEEKS 1,000-50,000 4-5 WEEKS 10,000-100,000 5-6 WEEKS 15,000-200,000 6-8 WEEKS 10,000-100,000 2-3 MONTHS Performed By: #### C MP #### [facility] [address] [place] [address] Dr. Hemanth Kerr CBC AUTO DIFFon 08-16-2022 BASO # 0.0 103/ul Normal 0.0-0.1 [facility] Comment on above: Performed By: #### L ACT #### [facility] [address] [place] [address] Dr. Hemanth Kerr Basophils/100 WBC (Bld) 0.6 % Normal 0.2-2.0 [facility] Comment on above: Performed By: #### L ACT #### [facility] [address] [address] [address] Hemanth Kerr EO # 0.1 103/ul Normal 0.0-0.7 [facility] Comment on above: Performed By: #### L ACT #### [facility] [address] [place] [address] Dr. Hemanth Kerr Eosinophils/100 WBC (Bld) 1.3 % Normal 0.9-7.0 [facility] Comment on above: Performed By: #### L ACT #### [facility] [address] [place] [address] Dr. Hemanth Kerr Erythrocyte distribution width (RBC) [Ratio] 12.0 % Normal 11.0-15.0 [facility] Comment on above: Performed By: #### L ACT #### [facility] [address] [place] [address] Dr. Hemanth Kerr Hematocrit (Bld) [Volume fraction] 35.6 % Critically low 36.0-48.0 [facility] Comment on above: Performed By: #### L ACT #### [facility] [address] [place] [address] Dr. Hemanth Kerr Hemoglobin (Bld) [Mass/Vol] 12.4 g/dL Normal 12.0-16.0 [facility] Comment on above: Performed By: #### L ACT #### [facility] [address] [place] [address] Dr. Hemanth Kerr IG # 0.02 10e3/ul Normal 0.00-0.03 [facility] Comment on above: Performed By: #### L ACT #### [facility] [address] [place] [address] Dr. Hemanth Kerr IG % 0.3 % Normal 0.0-0.5 [facility] Comment on above: Performed By: #### L ACT #### [facility] [address] [place] [address] Dr. Hemanth Kerr LYMPH # 1.9 103/ul Normal 1.2-3.8 [facility] Comment on above: Performed By: #### L ACT #### [facility] [address] [place] [address] Dr. Hemanth Kerr Lymphocytes/100 WBC (Bld) 27.5 % Normal 20.5-60.0 [facility] Comment on above: Performed By: #### L ACT #### [facility] [address] [place] [address] Dr. Hemanth Kerr MANUAL DIFF REQ NO Normal [facility] Comment on above: Performed By: #### L ACT #### [facility] [address] [place] [address] Dr. Hemanth Kerr MCH (RBC) [Entitic mass] 29.6 pg Normal 26.7-34.0 [facility] Comment on above: Performed By: #### L ACT #### [facility] [address] [place] [address] Dr. Hemanth Kerr MCHC (RBC) [Mass/Vol] 34.8 g/dL Normal 29.9-35.2 [facility] Comment on above: Performed By: #### L ACT #### [facility] [address] [place] [address] Dr. Hemanth Kerr MCV (RBC) [Entitic vol] 85.0 fL Normal 81.0-99.0 [facility] Comment on above: Performed By: #### L ACT #### [facility] [address] [place] [address] Dr. Hemanth Kerr MONO # 0.4 103/ul Normal 0.3-0.8 [facility] Comment on above: Performed By: #### L ACT #### [facility] [address] [place] [address] Dr. Hemanth Kerr Monocytes/100 WBC (Bld) 6.3 % Normal 1.7-12.0 [facility] Comment on above: Performed By: #### L ACT #### [facility] [address] [address] [address] Hemanth Kerr NEUT # 4.5 103/ul Normal 1.4-6.5 [facility] Comment on above: Performed By: #### L ACT #### [facility] [address] [address] [address] Hemanth Kerr Neutrophils/100 WBC (Bld) 64.0 % Normal 43.0-75.0 [facility] Comment on above: Performed By: #### L ACT #### [facility] [address] [place] [address] Dr. Hemanth Kerr Platelet mean volume (Bld) [Entitic vol] 10.6 fL Normal 9.5-13.5 [facility] Comment on above: Performed By: #### L ACT #### [facility] [address] [place] [address] Dr. Hemanth Kerr PLT 247 103/ul Normal 150-450 [facility] Comment on above: Performed By: #### L ACT #### [facility] [address] [place] [address] Dr. Hemanth Kerr RBC 4.19 106/ul Critically low 4.20-5.40 [facility] Comment on above: Performed By: #### L ACT #### [facility] [address] [place] [address] Dr. Hemanth Kerr WBC 7.0 103/ul Normal 4.0-11.0 [facility] Comment on above: Performed By: #### L ACT #### [facility] [address] [place] [address] Dr. Hemanth Kerr Covid-19 PCR ([facility])on 07-20 SARS-CoV-2 (COVID-19) RNA ELMO+probe Ql (Unsp spec) Not detected Normal NOT DETECTED [facility] Comment on above: Result Comment: This test is not yet approved or cleared by the [place] FDA. When there are no FDA-approved or cleared tests available, and other criteria are met, FDA can make tests available under an emergency access mechanism called an Emergency Use Authorization (EUA). The EUA for this test is supported by the [employer] Technician of Health and Human Service's (HHS's) declaration [...] SARS-CoV-2. Performed By: #### C MP #### [facility] [address] [place] [address] Dr. Hemanth Kerr PREG QUANT HCGon 08-16-2022 HCG QUANT [id number] mIU/mL Normal [facility] Comment on above: Performed By: #### P REG #### [facility] [address] [place] [address] Dr. Hemanth Kerr HCG RANGE SEE BELOW Normal [facility] Comment on above: Result Comment: 5-50 0.2-1 WEEK 50-500 1-2 WEEKS 100-5,000 2-3 WEEKS 500-10,000 3-4 WEEKS 1,000-50,000 4-5 WEEKS 10,000-100,000 5-6 WEEKS 15,000-200,000 6-8 WEEKS 10,000-100,000 2-3 MONTHS Performed By: #### P REG #### [facility] [address] [place] [address] Dr. Hemanth Kerr PREG QUANT HCGon 08-14-2022 HCG QUANT [id number] mIU/mL Normal [facility] Comment on above: Performed By: #### P REG #### [facility] [address] [place] [address] Dr. Hemanth Kerr HCG RANGE SEE BELOW Normal [facility] Comment on above: Result Comment: 5-50 0.2-1 WEEK 50-500 1-2 WEEKS 100-5,000 2-3 WEEKS 500-10,000 3-4 WEEKS 1,000-50,000 4-5 WEEKS 10,000-100,000 5-6 WEEKS 15,000-200,000 6-8 WEEKS 10,000-100,000 2-3 MONTHS Performed By: #### P REG #### [facility] [address] [address] [address] Hemanth Kerr US PREG TVon 08-14-2022 [...] by: CHRISTINE SÁNCHEZ Date: 2022-08-14 16:22 Normal [facility] US PREG TVon 07-27-2022 US PREG TV [...] by: CHRISTINE SÁNCHEZ Date: 2022-07-27 17:04 Normal [facility] XR CHEST 1 Von 07-09-2022 XR CHEST [...] by: FELIX WEBB Date: 2022-07-09 12:06 [facility] ([id number]) 1995 F Date Time Provider Department 12/12/21 KING SUAZO During your visit today, we recorded the following information about you: Angelia Almazan 12/12/2021 11:16 AM Signed Pleases sign pending new cbc order. Thanks, Angelia Almazan MA Allergies As of Date: 12/12/2021 (No Known Allergies) Date Reviewed: 12/12/2021 Reviewed by: Jasmin Silverio APRN.[facility] - Fully Assessed Reason for Visit: Lab Orders [168] Primary Visit Diagnosis:Iron deficiency anemia, unspecified iron deficiency anemia type [D50.9] Order(s):CBC + DIFF [SQCBCDIF] Order #: [id number] FUTURE Prescriptions as of 12/12/2021 - gabapentin (NEURONTIN) 400 mg capsule Take by mouth. - Polysaccharide Iron Complex 180 mg iron cap Take by mouth. - aspirin 81 mg cap Take 81 mg by mouth once daily. - ONDANSETRON HCL ORAL Take 4 mg by mouth as needed. Problem List As Of Date: 12/12/2021 (None) Encounter Status:Closed by JASMIN SILVERIO on 12/12/21 Normal [facility] 11[facility]20[facility] NOE ERVIN ([id number]) 1995 F Date Time Provider Department 11/10/21 [...] B12 is slightly low. Options would be [id number] B12 tablets 2 mg daily or start a monthly injection. Thanks, MELANY De La O RN 11/10/2021 3:40 PM Signed Informed pt of Dr Suazo's message. Pt verbalized understanding and states [facility] told her only 2 doses of the [...] by JENNYFER DE LA O on 11/10/21 [facility] CNOVSPon 11-08-2021 CNOVSP Visit (SP) Office ([place]AS[place]) NOE ERVIN ([id number]) 1995 F Date Time Provider Department 11/08/21 11:00 AM KING SAUZO During your visit today, we recorded the [...] shortness of breath, and is seen at [facility]. Labs revealed a hemoglobin of [...] changes, r (more content not included)... Normal [facility] Comp Metabolic Panelon 11-08 Albumin [Mass/Vol] 3.6 g/dL Low 3.9-4.9 [facility] Comment on above: Performed By: #### S ERFOL, IRON, B12, FERR #### [address] [place], [place] [address] ALP [Catalytic activity/Vol] 79 U/L Normal 34-123 [facility] Comment on above: Performed By: #### S ERFOL, IRON, B12, FERR #### [facility] [address] [place], [place] [address] ALT [Catalytic activity/Vol] 8 U/L Normal 7-38 [facility] Comment on above: Performed By: #### S ERFOL, IRON, B12, FERR #### [facility] [address] [place], [place] [address] Anion gap [Moles/Vol] 9 mmol/L Normal 9-18 [facility] Comment on above: Performed By: #### S ERFOL, IRON, B12, FERR #### [facility] [address] [place], [place] [address] AST [Catalytic activity/Vol] 13 U/L Normal 13-35 [facility] Comment on above: Performed By: #### S ERFOL, IRON, B12, FERR #### [address] [place] [address] Bilirubin [Mass/Vol] 0.2 mg/dL Normal 0.2-1.[address] [facility] Comment on above: Performed By: #### S ERFOL, IRON, B12, FERR #### [address] [place] [address] Calcium [Mass/Vol] 9.3 mg/dL Normal 8.5-10.2 [facility] Comment on above: Performed By: #### S ERFOL, IRON, B12, FERR #### [address] [address] Chloride [Moles/Vol] 102 mmol/L Normal 97-[address] [facility] Comment on above: Performed By: #### S ERFOL, IRON, B12, FERR #### [address] [place] [address] CO2 [Moles/Vol] 23 mmol/L Normal 22-30 [facility] Comment on above: Performed By: #### S ERFOL, IRON, B12, FERR #### [address] [address] Creatinine [Mass/Vol] 0.55 mg/dL Low 0.58-0.96 [facility] Comment on above: Performed By: #### S ERFOL, IRON, B12, FERR #### [address] [place] [address] eGFR- Amer. >60 Normal [facility] Comment on above: Performed By: #### S ERFOL, IRON, B12, FERR #### [address] [address] eGFR-All Other Races >[address] [facility] Comment on above: Result Comment: eGFR [...] #### S ERFOL, IRON, B12, FERR #### [facility] [address] [place], [place] [address] Glucose [Mass/Vol] 96 mg/dL Normal 74-99 [facility] Comment on above: Result Comment: The [place] [employer] (ADA) provides guidance for cutoff [...] Standards of Medical Care in Diabetes 2016, [place] [employer]. Diabetes Care. 2016.39(Suppl 1). Performed By: #### S ERFOL, IRON, B12, FERR #### [facility] [address] [place], [place] [address] Potassium [Moles/Vol] 3.3 mmol/L Low 3.7-5.1 [facility] Comment on above: Performed By: #### S ERFOL, IRON, B12, FERR #### [address] [place], [place] [address] Protein [Mass/Vol] 6.3 g/dL Normal 6.3-8.0 [facility] Comment on above: Performed By: #### S ERFOL, IRON, B12, FERR #### [address] [address] Sodium [Moles/Vol] 134 mmol/L Low 136-144 [facility] Comment on above: Performed By: #### S ERFOL, IRON, B12, FERR #### [address] [place] [address] Urea nitrogen [Mass/Vol] 4 mg/dL Low 7-21 [facility] Comment on above: Performed By: #### S ERFOL, IRON, B12, FERR #### [place] [id number] Ferritinon 11-08-2021 Ferritin [Mass/Vol] 203.0 ng/mL Normal 14.7-205.[address] [facility] Comment on above: Performed By: #### S ERFOL, IRON, B12, FERR #### [address] [address] Folate, Serumon 11-08-2021 Folate [Mass/Vol] 8.5 ng/mL Normal >4.7 [facility] Comment on above: Performed By: #### S ERFOL, IRON, B12, FERR #### [address] [address] Iron and TIBCon 11-08-2021 Iron [Mass/Vol] 93 ug/dL Normal 41-186 [facility] Comment on above: Performed By: #### S ERFOL, IRON, B12, FERR #### [address] [address] TIBC 407 ug/dL High 232-386 [facility] Comment on above: Performed By: #### S ERFOL, IRON, B12, FERR #### [facility] [address] [place] [id number] Transferrin Saturatn 23 % Normal 15-57 [facility] Comment on above: Performed By: #### S ERFOL, IRON, B12, FERR #### [facility] [address] [place], [place] [address] Remote CBCDIF (for [facility] use o nly)on 11-08-2021 Abs Baso <0.03 Normal <0.11 [facility] Abs [place] 0.57 k/uL Normal <0.87 [facility] Abs Neut 4.67 k/uL Normal 1.45-7.50 [facility] Absolute nRBC <0.01 Normal <0.01 [facility] Basophils/100 WBC (Bld) 0.3 % Normal [facility] DTYPE Auto Diff Normal [facility] Eosinophils (Bld) [#/Vol] 0.05 10*3/uL Normal <0.46 [facility] Eosinophils/100 WBC (Bld) 0.8 % Normal [facility] Erythrocyte distribution width (RBC) [Ratio] 29.9 % High 11.5-15.0 [facility] Hematocrit (Bld) [Volume fraction] 32.6 % Low 36.0-46.0 [facility] Hemoglobin (Bld) [Mass/Vol] 10.1 g/dL Low 11.5-15.5 [facility] Lymphocytes (Bld) [#/Vol] 1.25 10*3/uL Normal 1.00-4.00 [facility] Lymphocytes/100 WBC (Bld) 19.1 % Normal [facility] MCH 25.1 pG Low 26.0-34.0 [facility] MCHC (RBC) [Mass/Vol] 31.0 g/dL Normal 30.5-36.0 [facility] MCV (RBC) [Entitic vol] 81.1 fL Normal 80.0-100.0 [facility] Monocytes/100 WBC (Bld) 8.7 % Normal [facility] Neutrophils/100 WBC (Bld) 71.1 % Normal [facility] NRBCs 0.0 /100 WBC Normal 0 [facility] Platelet mean volume (Bld) [Entitic vol] 10.3 fL Normal 9.0-12.7 [facility] Platelets (Bld) [#/Vol] 223 10*3/uL Normal 150-400 [facility] Comment on above: Result Comment: Resu lt checked and verified Sample checked for a clot. RBC (Bld) [#/Vol] 4.02 10*6/uL Normal 3.90-5.20 [facility] WBC (Bld) [#/Vol] 6.56 10*3/uL Normal 3.70-11.00 [facility] Reticulocyteon 11-08-2021 Abs Retic 0.140 M/uL High 0.0180-0.1000 [facility] Comment on above: Performed By: #### S ERFOL, IRON, B12, FERR #### [address] [place] [address] Retic% 3.5 % High 0.4-2.0 [facility] Comment on above: Performed By: #### S ERFOL, IRON, B12, FERR #### [address] [place] [id number] Vitamin B12on 11-08-2021 Cobalamin (Vitamin B12) [Mass/Vol] 218 pg/mL Low 232-1245 [facility] Comment on above: Performed By: #### S ERFOL, IRON, B12, FERR #### [address] [place] [address] HCV RNA,Quant,PCRon 04-27-20 20 HCV RNA,Quant,PCR Specimen [...] genotypes 1-6. Report Status FINAL 04/27/2020 Normal [facility] Comment on above: Performed By: #### H IVCMB, PHEP #### [address] [address] [employer]: Dom Fowler MD #### CP #### [facility] [address] [place] [address] Dr. [phone] [employer]: Shakeel Graham MD [facility] 04-26-2020 Erythrocyte distribution width (RBC) [Ratio] 14.7 % High 11.8-14.4 [facility] Comment on above: Performed By: #### H IVCMB, PHEP #### [address] [address] [employer]: Dom Fowler MD #### CP #### [facility] [address] [place] [address] Dr. [address] [phone] [employer]: Shakeel Graham MD Hematocrit (Bld) [Volume fraction] 36.0 % Low 36.3-47.1 [facility] Comment on above: Performed By: #### H IVCMB, PHEP #### [address] [address] [employer]: Dom Fowler MD #### CP #### [facility] [address] [place] [address] [address] [id number] [employer]: Shakeel Graham MD Hemoglobin (Bld) [Mass/Vol] 10.9 g/dL Low 11.9-15.1 [facility] Comment on above: Performed By: #### H IVCMB, PHEP #### [address] [address] [employer]: Dom Fowler MD #### CP #### [facility] [address] [place] [address] [place], [place] [phone] [employer]: Shakeel Graham MD MCH (RBC) [Entitic mass] 26.2 pg Normal 25.2-33.5 [facility] Comment on above: Performed By: #### H IVCMB, PHEP #### [address] [address] [employer]: Dom Fowler MD #### CP #### [facility] [address] [place] [address] Dr. [address] [phone] [employer]: Shakeel Graham MD MCHC (RBC) [Mass/Vol] 30.3 g/dL Normal 28.4-34.8 [facility] Comment on above: Performed By: #### H IVCMB, PHEP #### [address] [address] [employer]: Dom Fowler MD #### CP #### [address] [place] [phone] [employer]: Shakeel Graham MD MCV (RBC) [Entitic vol] 86.5 fL Normal 82.6-102.9 [facility] Comment on above: Performed By: #### H IVCMB, PHEP #### [address] [address] [employer]: Dom Fowler MD #### CP #### [address] [place] [phone] [employer]: Shakeel Graham MD NRBC Automated 0.0 per 100 WBC Normal 0.0 [facility] Comment on above: Performed By: #### H IVCMB, PHEP #### [address] [address] [employer]: Dom Fowler MD #### CP #### [address] [place], [place] [phone] [employer]: Shakeel Graham MD Platelet mean volume (Bld) [Entitic vol] 10.8 fL Normal 8.1-13.5 [facility] Comment on above: Performed By: #### H IVCMB, PHEP #### [address] [address] [employer]: Dom Fowler MD #### CP #### [address] [place], [place] [phone] [employer]: Shakeel Graham MD Platelets (Bld) [#/Vol] 328 10*3/uL Normal 138-453 [facility] Comment on above: Performed By: #### H IVCMB, PHEP #### [address] [address] [employer]: Dom Fowler MD #### CP #### [address] [place], [place] [phone] [employer]: Shakeel Graham MD RBC (Bld) [#/Vol] 4.16 10*6/uL Normal 3.95-5.11 [facility] Comment on above: Performed By: #### H IVCMB, PHEP #### [address] [address] [employer]: Dom Fowler MD #### CP #### [address] [place], [place] [phone] [employer]: Shakeel Graham MD WBC (Bld) [#/Vol] 5.7 10*3/uL Normal 3.5-11.3 [facility] Comment on above: Performed By: #### H IVCMB, PHEP #### [address] [address] [employer]: Dom Fowler MD #### CP #### [address] [place] [address] [employer]: Shakeel Graham MD Erythrocyte distribution width (RBC) [Ratio] 14.7 % High 11.8 - 14.4 % [place] Hematocrit (Bld) [Volume fraction] 36.0 % Low 36.3 - 47.1 % [place] Hemoglobin (Bld) [Mass/Vol] 10.9 g/dL Low 11.9 - 15.1 g/dL [place] Interpretation and review of laboratory results Abnormal [place] MCH (RBC) [Entitic mass] 26.2 pg 25.2 - 33.5 pg [place] MCHC (RBC) [Mass/Vol] 30.3 g/dL 28.4 - 34.8 g/dL [place] MCV (RBC) [Entitic vol] 86.5 fL 82.6 - 102.9 fL [place] Platelet mean volume (Bld) [Entitic vol] 10.8 fL 8.1 - 13.5 fL [place], [place] Platelets (Bld) [#/Vol] 328 10*3/uL [place] RBC (Bld) [#/Vol] 4.16 10*6/uL 3.95 - 5.1 1 m/uL [place] WBC (Bld) [#/Vol] 0.0 10*3/uL 0.0 per 100 WBC [place] WBC (Bld) [#/Vol] 5.7 10*3/uL [place] Comp Metabolic Profon 2019 Bilirubin Ql (U) <0.10 Low 0.3-1.2 [facility] Comment on above: Performed By: #### H IVCMB, PHEP #### [facility] [address] [place] [address] [employer]: Dom Fowler MD #### CP #### [facility] [address] [place] [address] [employer]: Shakeel Graham MD (cont.) Normal [facility] Comment on above: Result Comment: Aver age GFR for 20-29 years old: 116 mL/min/1.73sq m Chronic Kidney Disease: <60 mL/min/1.73sq m Kidney failure: <15 mL/min/1.73sq m eGFR calculated using average adult body mass. Additional eGFR calculator available at: http://www.[employer]/multiple_crcl_2011.htm Performed By: #### H IVCMB, PHEP #### [facility] [address] [place] [address] [employer]: Dom Fowler MD #### CP #### [facility] [address] [place] [address] [employer]: Shakeel Graham MD Albumin [Mass/Vol] 3.4 g/dL Low 3.5-5.2 [facility] Comment on above: Performed By: #### H IVCMB, PHEP #### [address] [place] [address] [employer]: Dom Fowler MD #### CP #### [facility] [address] [place] [address] [employer]: Shakeel Graham MD Albumin/Globulin [Mass ratio] 1.5 {ratio} Normal 1.0-2.5 [facility] Comment on above: Performed By: #### H IVCMB, PHEP #### [address] [place] [address] [employer]: Dom Fowler MD #### CP #### [facility] [address] [place] [address] [employer]: Shakeel Graham MD Alkaline Phos 40 U/L Normal 35-104 [facility] Comment on above: Performed By: #### H IVCMB, PHEP #### [address] [address] [employer]: Dom Fowler MD #### CP #### [facility] [address] [place], [place] [phone] [employer]: Shakeel Graham MD ALT [Catalytic activity/Vol] 12 U/L Normal 5-33 [facility] Comment on above: Performed By: #### H IVCMB, PHEP #### [facility] [address] [place] [address] [employer]: Dom Fowler MD #### CP #### [facility] [address] [place], [place] [phone] [employer]: Shakeel Graham MD Anion gap [Moles/Vol] 9 mmol/L Normal 9-17 [facility] Comment on above: Performed By: #### H IVCMB, PHEP #### [facility] [address] [place] [address] [employer]: Dom Fowler MD #### CP #### [facility] [address] [place], [place] [phone] [employer]: Shakeel Graham MD AST [Catalytic activity/Vol] 12 U/L Normal <32 [facility] Comment on above: Performed By: #### H IVCMB, PHEP #### [facility] [address] [place] [address] [employer]: Dom Fowler MD #### CP #### [facility] [address] [place], [place] [phone] [employer]: Shakeel Graham MD BUN/CRE Ratio 26 High 9-20 [facility] Comment on above: Performed By: #### H IVCMB, PHEP #### [facility] [address] [place] [address] [employer]: Dom Fowler MD #### CP #### [facility] [address] [place], [place] [address] [employer]: Shakeel Graham MD Calcium [Mass/Vol] 9.3 mg/dL Normal 8.6-10.4 [facility] Comment on above: Performed By: #### H IVCMB, PHEP #### [address] [address] [employer]: Dom Fowler MD #### CP #### [facility] [address] [place] [address] Dr. [address] [phone] [employer]: Shakeel Graham MD Chloride [Moles/Vol] 109 mmol/L High 98-107 [facility] Comment on above: Performed By: #### H IVCMB, PHEP #### [address] [address] [employer]: Dom Fowler MD #### CP #### [facility] [address] [place] [address] [place] [phone] [employer]: Shakeel Graham MD CO2 [Moles/Vol] 26 mmol/L Normal 20-31 [facility] Comment on above: Performed By: #### H IVCMB, PHEP #### [address] [address] [employer]: Dom Fowler MD #### CP #### [address] [place] [phone] [employer]: Shakeel Graham MD Creatinine [Mass/Vol] 0.57 mg/dL Normal 0.50-0.90 [facility] Comment on above: Performed By: #### H IVCMB, PHEP #### [address] [address] [employer]: Dom Fowler MD #### CP #### [facility] [address] [place] [address] [place], [place] [phone] [employer]: Shakeel Graham MD GFR, Amer >60 Normal >60 [facility] Comment on above: Performed By: #### H IVCMB, PHEP #### [facility] [address] [place] [address] [employer]: Dom Fowler MD #### CP #### [facility] [address] [place], [place] [phone] [employer]: Shakeel Graham MD GFR,non Amer >60 Normal >60 [facility] Comment on above: Performed By: #### H IVCMB, PHEP #### [address] [address] [employer]: Dom Fowler MD #### CP #### [facility] [address] [place] [address] [address] [place], [place] [phone] [employer]: Shakeel Graham MD Glucose [Mass/Vol] 92 mg/dL Normal 70-99 [facility] Comment on above: Performed By: #### H IVCMB, PHEP #### [address] [address] [address] [employer]: Dom Fowler MD #### CP #### [facility] [address] [place] [address] [place] [address] [employer]: Shakeel Graham MD Potassium [Moles/Vol] 3.8 mmol/L Normal 3.7-5.3 [facility] Comment on above: Performed By: #### H IVCMB, PHEP #### [facility] [address] [place] [address] [employer]: Dom Fowler MD #### CP #### [facility] [address] [place], [place] [id number] [employer]: Shakeel Graham MD Protein [Mass/Vol] 5.7 g/dL Low 6.4-8.3 [facility] Comment on above: Performed By: #### H IVCMB, PHEP #### [address] [address] [employer]: Dom Fowler MD #### CP #### [facility] [address] [place] [address] [employer]: Shakeel Graham MD Sodium [Moles/Vol] 144 mmol/L Normal 135-144 [facility] Comment on above: Performed By: #### H IVCMB, PHEP #### [address] [place] [address] [employer]: Dom Fowler MD #### CP #### [facility] [address] [place] [address] [employer]: Shakeel Graham MD Staging: Normal [facility] Comment on above: Result Comment: Stag e 1: Some kidney damage normal GFR Stage 2: Mild kidney damage GFR 60-89 Stage 3: Moderate kidney damage GFR 30-59 Stage 4: Severe kidney damage GFR 15-29 Stage 5: Severe kidney damage GFR <15 ESRD - chronic treatment by dialysis or transplant Performed By: #### H IVCMB, PHEP #### [facility] [address] [place] [address] [employer]: Dom Fowler MD #### CP #### [address] [place] [address] [employer]: Shakeel Graham MD Urea nitrogen [Mass/Vol] 15 mg/dL Normal 6-20 [facility] Comment on above: Performed By: #### H IVCMB, PHEP #### [facility] [address] [place] [address] [employer]: Dom Fowler MD #### CP #### [address] [place] [address] [employer]: Shakeel Graham MD [facility] 04-26-2020 Albumin [Mass/Vol] 3.4 g/dL Low 3.5 - 5.2 g/dL [place] Albumin/Globulin [Mass ratio] 1.5 {ratio} [place] ALP [Catalytic activity/Vol] 40 U/L 35 - 104 U/L [place] ALT [Catalytic activity/Vol] 12 U/L 5 - 33 U/L [place] Anion gap [Moles/Vol] 9 mmol/L 9 - 17 mmol/L [place] AST [Catalytic activity/Vol] 12 U/L <32 [place] Bilirubin Ql (U) <0.10 Low 0.3 - 1.2 mg/dL [place], [place] Bun/Cre Ratio 26 High [place], [place] Calcium [Mass/Vol] 9.3 mg/dL 8.6 - 10. 4 mg/dL [place] Chloride [Moles/Vol] 109 mmol/L High 98 - 107 mmol/L [place] CO2 [Moles/Vol] 26 mmol/L 20 - 31 mmol/L [place] Creatinine [Mass/Vol] 0.57 mg/dL 0.5 - 0.9 mg/dL [place] GFR >60 >60 mL/min [place] GFR Non- >60 >60 mL/min [place] Glucose [Mass/Vol] 92 mg/dL 70 - 99 mg/dL [place] Interpretation and review of laboratory results Abnormal [place] Potassium [Moles/Vol] 3.8 mmol/L 3.7 - 5.3 mmol/L [place] Protein [Mass/Vol] 5.7 g/dL Low 6.4 - 8.3 g/dL [place] Sodium [Moles/Vol] 144 mmol/L 135 - 144 mmol/L [place] Urea nitrogen [Mass/Vol] 15 mg/dL 6 - 20 mg/dL [place] HCG Qualitative, Serumon hCG Qual Negative NEGATIVE [place] Comment on above: Specimens with hCG l evels near the threshold of the test (25 mIU/mL) may give a negative or indeterminate result. In such cases, another test should be performed with a new specimen in 48-72 hours. If early is suspected clinically in this setting, correlation with quantitative serum b-hCG level is suggested. [facility] has confirmed the use of plasma for this test. This has not been cleared or approved by the U.S. Food and Drug Administration. The FDA has determined that such clearance is not necessary. HCG Screen, Bloodon 04-26-20 20 HCG Qn Negative Normal NEG [facility] Comment on above: Result Comment: Spec imens with hCG levels near the threshold of the test (25 mIU/mL) may give a negative or indeterminate result. In such cases, another test should be performed with a new specimen in 48-72 hours. If early is suspected clinically in this setting, correlation with quantitative serum b-hCG level is suggested. [employer] has confirmed the use of plasma for this test. This has not been cleared or approved by the U.S. Food and Drug Administration. The FDA has determined that such clearance is not necessary. Performed By: #### H IVCMB, PHEP #### [facility] [address] [place], [place] [id number] [employer]: Dom Fowler MD #### CP #### [facility] [address] [place] [address] [place] [address] [employer]: Shakeel Graham MD HIV Ag/Abon 04-26-2020 HIV Ag/Ab NONREACTIVE Normal NR [facility] Comment on above: Result Comment: No l aboratory evidence of HIV infection. If acute HIV infection is suspected, consider testing for HIV-1 RNA. Performed By: #### H IVCMB, PHEP #### [facility] [address] [place] [address] [employer]: Dom Fowler MD #### CP #### [facility] [address] [place] [address] [employer]: Shakeel Graham MD HIV Screenon 04-26-2020 HIV Ag/Ab NONREACTIVE NONREACTIVE [facility] Comment on above: No laboratory eviden ce of HIV infection. If acute HIV infection is suspected, consider testing for HIV-1 RNA. Hepatitis Acute [facility] 04-26 Hep A Ab,IgM NONREACTIVE Normal NR [facility] Comment on above: Performed By: #### H IVCMB, PHEP #### [facility] [address] [place] [address] [employer]: Dom Fowler MD #### CP #### [facility] [address] [place] [address] [place] [address] [employer]: Shakeel Graham MD Hep B Core Ab,IgM NONREACTIVE Normal [facility] Comment on above: Performed By: #### H IVCMB, PHEP #### [facility] [address] [place] [address] [employer]: Dom Fowler MD #### CP #### [address] [place] [address] [employer]: Shakeel Graham MD Hep B Surf Ag NONREACTIVE Normal [facility] Comment on above: Performed By: #### H IVCMB, PHEP #### [address] [address] [employer]: Dom Fowler MD #### CP #### [facility] [address] [place] [address] [place] [address] [employer]: Shakeel Graham MD Hep C Ab REACTIVE Abnormal [facility] Comment on above: Result Comment: The hepatitis [...] Performed By: #### H IVCMB, PHEP #### [facility] [address] [place] [address] [employer]: Dom Fowler MD #### CP #### [facility] [address] [place] [address] [employer]: Shakeel Graham MD Hepatitis Panel, Acuteon HAV IgM IA Qn (S) NONREACTIVE NONREACTIVE [place] Hep B Core Ab, IgM NONREACTIVE NONREACTIVE [place] Hepatitis B Surface Ag NONREACTIVE NONREACTIVE [place] Hepatitis C Ab REACTIVE Abnormal NONREACTIVE [place] Comment on above: The hepatitis C [...] Interpretation and review of laboratory results Abnormal [place] Metabolic Panelon 04-26-2020 GFR/1.73 sq M predicted among non-blacks MDRD (S/P/Bld) [Vol rate/Area] [place] Comment on above: Stage 1: Some [...] body mass. Additional eGFR calculator available at: http://www.SalesPortal.[employer]AS Biosana/multiple_crcl_2012.htm Microscopic Urinalysison Amorphous, UA NOT REPORTED None [place] Bacteria, UA NOT REPORTED None [place], [place] Casts UA NOT REPORTED /LPF [place] Crystals, UA 5 TO 10 Abnormal None /HPF [place] Crystals, UA CALCIUM OXALATE Abnormal None /HPF [place] Epithelial Cells UA 0 TO 2 [place] Interpretation and review of laboratory results Abnormal [place] Mucus, UA TRACE Abnormal None [place] Other Observations UA NOT REPORTED NOT REQ. [place] RBC (U) [#/Vol] None [facility] [place] Renal Epithelial, UA NOT REPORTED 0 /HPF [place] Trichomonas, UA NOT REPORTED None [facility] [place] WBC, UA 0 TO 2 [place] Yeast, UA NOT REPORTED None [place] - [place] UA w/Reflex Cultureon 2019 Acetoacetic Acid,Ur Negative Normal NEG [facility] Comment on above: Performed By: #### H IVCMB, PHEP #### [address] [address] [employer]: Dom Fowler MD #### CP #### [address] [place] [id number] [employer]: Shakeel Graham MD Bilirubin, SemiQt,Ur Negative Normal [facility] Comment on above: Performed By: #### H IVCMB, PHEP #### [address] [address] [employer]: Dom Fowler MD #### CP #### [address] [place] [id number] [employer]: Shakeel Graham MD Color (U) YELLOW Normal [facility] Comment on above: Performed By: #### H IVCMB, PHEP #### [address] [address] [employer]: Dom Fowler MD #### CP #### [facility] [address] [place] [address] [place] [address] [employer]: Shakeel Graham MD Glucose Ql (U) Negative Normal NEG [facility] Comment on above: Performed By: #### H IVCMB, PHEP #### [address] [address] [employer]: Dom Fowler MD #### CP #### [facility] [address] [place] [address] [place], [place] 1600[address] [employer]: Shakeel Graham MD Hemoglobin, Ur Negative Normal NEG [facility] Comment on above: Performed By: #### H IVCMB, PHEP #### [address] [address] [employer]: Dom Fowler MD #### CP #### [address] [place] [address] [employer]: Shakeel Graham MD Leukocyte esterase Test strip Ql (U) Negative Normal NEG [facility] Comment on above: Performed By: #### H IVCMB, PHEP #### [address] [address] [employer]: Dom Fowler MD #### CP #### [address] [place] [address] [employer]: Shakeel Graham MD Nitrite,Ur Negative Normal NEG [facility] Comment on above: Performed By: #### H IVCMB, PHEP #### [address] [address] [employer]: Dom Fowler MD #### CP #### [address] [place] [address] [employer]: Shakeel Graham MD pH (U) 6.5 [pH] Normal 5.0-9.0 [facility] Comment on above: Performed By: #### H IVCMB, PHEP #### [address] [address] [employer]: Dom Fowler MD #### CP #### [facility] [address] [place] [address] [employer]: Shakeel Graham MD Protein Ql (U) Negative Normal NEG [facility] Comment on above: Performed By: #### H IVCMB, PHEP #### [facility] [address] [place] [address] [employer]: Dom Fowler MD #### CP #### [address] [place] [address] [employer]: Shakeel Graham MD Specific gravity (U) [Rel density] 1.025 High 1.010-1.020 [facility] Comment on above: Performed By: #### H IVCMB, PHEP #### [facility] [address] [place] [address] [employer]: Dom Fowler MD #### CP #### [address] [place] [address] [employer]: Shakeel Graham MD Turbidity CLEAR Normal CLEAR [facility] Comment on above: Performed By: #### H IVCMB, PHEP #### [address] [address] [employer]: Dom Fowler MD #### CP #### [address] [place] [address] [employer]: Shakeel Graham MD Urobilinogen,Ur Normal Normal NORM [facility] Comment on above: Performed By: #### H IVCMB, PHEP #### [address] [address] [employer]: Dom Fowler MD #### CP #### [address] [place] [address] [employer]: Shakeel Graham MD Comment NOT REPORTED Normal [facility] Comment on above: Performed By: #### H IVCMB, PHEP #### [facility] [address] [place] [address] [employer]: Dom Fowler MD #### CP #### [address] [place] [address] [employer]: Shakeel Graham MD Urinalysis Reflex to Culture on 04-26-2020 Bilirubin Urine Negative NEGATIVE [facility], [place] Color, UA YELLOW YELLOW [facility], [place] Glucose, Ur Negative NEGATIVE [facility], [place] Interpretation and review of laboratory results Abnormal [place] Ketones Ql (U) Negative NEGATIVE [facility], [place] Leukocyte esterase Test strip Ql (U) Negative NEGATIVE [facility], [place] Nitrite, Urine Negative NEGATIVE [facility], [place] pH, UA 6.5 [place] Protein (U) [Mass/Vol] Negative NEGATIVE [facility], [place] Specific [place], UA 1.025 High [facility], [place] Turbidity UA CLEAR CLEAR [place] Urinalysis Comments NOT REPORTED [facility] [place], [place] Urine Hgb Negative NEGATIVE [facility], [place] Urobilinogen, Urine Normal Normal [place] Urinalysis,Microon 0 ----- Normal [facility] Comment on above: Performed By: #### H IVCMB, PHEP #### [address] [place] [address] [employer]: Dom Fowler MD #### CP #### [address] [place] [address] [employer]: Shakeel Graham MD Crystals LM Nom (Urine sed) CALCIUM OXALATE Abnormal NONE [facility] Comment on above: Result Comment: 5 TO 10 Performed By: #### H IVCMB, PHEP #### [facility] [address] [place] [address] [employer]: Dom Fowler MD #### CP #### [facility] [address] [place] [address] [employer]: Shakeel Graham MD Epithelial cells LM.HPF (Urine sed) [#/Area] 0 TO 2 Normal 0-25 [facility] Comment on above: Performed By: #### H IVCMB, PHEP #### [address] [address] [employer]: Dom Fowler MD #### CP #### [address] [place], [place] 0899683 [employer]: Shakeel Graham MD Mucus Strands TRACE Abnormal [facility] Comment on above: Performed By: #### H IVCMB, PHEP #### [address] [address] [employer]: Dom Fowler MD #### CP #### [address] [place] [id number] [employer]: Shakeel Graham MD RBC (U) [#/Vol] None Normal 0-2 [facility] Comment on above: Performed By: #### H IVCMB, PHEP #### [address] [address] [employer]: Dom Fowler MD #### CP #### [address] [place] [address] [employer]: Shakeel Graham MD WBC (U) [#/Vol] 0 TO 2 Normal 0-5 [facility] Comment on above: Performed By: #### H IVCMB, PHEP #### [address] [address] [employer]: Dom Fowler MD #### CP #### [address] [place], [place] 2672883 [employer]: Shakeel Graham MD Amorphous sediment LM Ql (Urine sed) NOT REPORTED Normal [facility] Comment on above: Performed By: #### H IVCMB, PHEP #### [address] [address] [employer]: Dom Fowler MD #### CP #### [facility] [address] [place] [address] [employer]: Shakeel Graham MD Bacteria LM.HPF (Urine sed) [#/Area] NOT REPORTED Normal NONE [facility] Comment on above: Performed By: #### H IVCMB, PHEP #### [address] [address] [employer]: Dom Fowler MD #### CP #### [address] [place] [address] [employer]: Shakeel Graham MD Casts LM.LPF (Urine sed) [#/Area] NOT REPORTED Normal [facility] Comment on above: Performed By: #### H IVCMB, PHEP #### [address] [address] [employer]: Dom Fowler MD #### CP #### [address] [place] [address] [employer]: Shakeel Graham MD Epithelial, Renal NOT REPORTED Normal 0 [facility] Comment on above: Performed By: #### H IVCMB, PHEP #### [address] [address] [employer]: Dom Fowler MD #### CP #### [address] [place] [address] [employer]: Shakeel Graham MD Other Observations NOT REPORTED Normal NREQ [facility] Comment on above: Performed By: #### H IVCMB, PHEP #### [address] [address] [employer]: Dom Fowler MD #### CP #### [facility] [address] [place], [place] 1141183 [employer]: Shakeel Graham MD Trichomonas NOT REPORTED Normal NONE [facility] Comment on above: Performed By: #### H IVCMB, PHEP #### [facility] [address] [place], [place] [id number] [employer]: Dom Fowler MD #### CP #### [facility] [address] [place] [id number] [employer]: Shakeel Graham MD Yeast LM Ql (Urine sed) NOT REPORTED Normal NONE [facility] Comment on above: Performed By: #### H IVCMB, PHEP #### [facility] [address] [place], [place] [id number] [employer]: Dom Fowler MD #### CP #### [facility] [address] [place] [address] Dr. [place] [id number] [employer]: Shakeel Graham MD ED Clinical Summaryon 2019 ED Clinical Summary [address] [address] ED Clinical Summary Person Information Name: Kathryn Ervin/[facility] Age: 25 Years : 1995 Sex: Female PCP: Marital Status: Single Phone: Race: White Ethnicity: Not or Language: Pashto Visit Reason: Drug withdrawal; Drug withdrawal Acuity: 3 Enc Type: Emergency Med Service: Emergency Medicine Arrival: 03/16/2020 20:10:45 Discharge: 03/17/2020 02:12:00 LOS: 000 06:02 Checkin: 03/16/2020 20:10:45 Checkout: 03/17/2020 02:12:00 Dispo Type: Home or Self Care Address: [address] [place] [id number] Provider Notes: Diagnosis: 1:Affective disorder; 2:Drug usage [...] range between ( 27.2 and 40.8 ) [place] Auto: 11.4 % -- Normal range between [...] range between ( 36.0 and 46.0 ) [place] Absolute: 1.5 x10 MCH: 27.4 pg -- [...] 03/16/2020 20:20:41 Follow up: With: Address: When: [facility] [place], [place] Within 1 to 2 days Discharge Orders: Discharge Patient 03/17/20 1:45:00 EDT, Discharge to Home, Self Patient Education Information: Understanding Methamphetamine Abuse and Addiction; Treating Affective (Mood) Disorders [facility] Poison Help line: . [facility] Mental Health Hotline: [place] Tobacco Quit Line: [place], [place]) [address]: [phone] [place], [place]) [address]: [phone] [facility] [address] [place], [place]: [phone] Normal [facility] hCG Quantitativeon 0 Beta hCG Qnt 1.7 mIU/mL Normal 0.0-4.9 [facility] Comment on above: Result Comment: 0.0 - 4.9 Negative for 5.0 - 25.0 Indeterminant for : Suggest repeat in 72 hours. >25.0 Positive for Performed By: #### H CG ####[place] [address] .UA Microscp Aon 03-16-2020 UA Hyline Cast Qual >20 Abnormal Negative [facility] Comment on above: Performed By: #### C [id number] ####[place] [address] UA Mucus Present Abnormal Absent [facility] Comment on above: Performed By: #### C [id number] ####[place] [id number] UA RBC Quant 12 /HPF High 0-5 [facility] Comment on above: Performed By: #### C [id number] ####[address] [address] UA Squepi Cells Quant 6 /HPF Normal 0-29 [facility] Comment on above: Performed By: #### C [id number] ####[address] [address] UA WBC Quant 7 /HPF High 0-5 [facility] Comment on above: Performed By: #### C [id number] ####[facility] [place] [address] .eGFRon 03-16-2020 eGFR AA 52 mL/min/1.73m? Low >=60 [facility] Comment on above: Result Comment: Resu lt = 0-14.9 mL/min/1.73 m2 Kidney failure or Dialysis Result = 15-29 mL/min/1.73 m2 Severe decrease in GFR Result = 30-59 mL/min/1.73 m2 Moderate decrease in GFR Result >= 60 mL/min/1.73 m2 Normal or increased GFR Performed By: #### E GFR #### [address] [address] eGFR Non-AA 43 mL/min/1.73m? Low >=60 [facility] Comment on above: Result Comment: Resu lt [...] dosing. Performed By: #### E GFR #### [address] [address] CBC w/ Diffon 03-16-2020 Erythrocyte distribution width (RBC) [Ratio] 15.9 % High 11.6-14.8 [facility] Comment on above: Performed By: #### C BC #### [address] [address] Hematocrit (Bld) [Volume fraction] 37.5 % Normal 36.0-46.0 [facility] Comment on above: Performed By: #### C BC #### [address] [address] Hemoglobin (Bld) [Mass/Vol] 12.5 g/dL Normal 12.0-16.0 [facility] Comment on above: Performed By: #### C BC #### [address] [address] MCH (RBC) [Entitic mass] 27.4 pg Normal 27.0-35.0 [facility] Comment on above: Performed By: #### C BC #### [address] [address] MCHC (RBC) [Mass/Vol] 33.2 % Normal 31.0-37.0 [facility] Comment on above: Performed By: #### C BC #### [address] [address] MCV (RBC) [Entitic vol] 82.4 fL Normal 80.0-100.0 [facility] Comment on above: Performed By: #### C BC #### [address] [address] Platelet mean volume (Bld) [Entitic vol] 9.4 fL Normal 6.7-10.6 [facility] Comment on above: Performed By: #### C BC #### [address] [address] Platelets (Bld) [#/Vol] 307 x10*3/mcL Normal 150-350 [facility] Comment on above: Performed By: #### C BC #### [address] [address] RBC (Bld) [#/Vol] 4.55 x10*6/mcL Normal 3.80-5.20 [facility] Comment on above: Performed By: #### C BC #### [address] [address] WBC (Bld) [#/Vol] 12.9 x10*3/mcL High 4.5-11.0 [facility] Comment on above: Performed By: #### C BC #### [address] [address] CMPon 03-16-2020 Albumin [Mass/Vol] 5.2 g/dL High 3.2-4.9 [facility] Comment on above: Result Comment: [facility] Laboratory updated the methodology used for albumin testing on 04/24/18. Albumin measurement was performed using a bromcresol purple dye-binding assay. Performed By: #### C OMP #### [address] [address] Albumin/Globulin [Mass ratio] 1.5 {ratio} Normal 1.1-2.2 [facility] Comment on above: Performed By: #### C OMP #### [address] [address] Alk Phos 47 IU/L Normal 32-91 [facility] Comment on above: Performed By: #### C OMP #### [address] [address] ALT [Catalytic activity/Vol] 19 U/L Normal 14-54 [facility] Comment on above: Performed By: #### C OMP #### [address] [address] Anion gap [Moles/Vol] 22 mmol/L High 7-17 [facility] Comment on above: Performed By: #### C OMP #### [address] [address] AST [Catalytic activity/Vol] 31 U/L Normal 15-41 [facility] Comment on above: Performed By: #### C OMP #### [address] [place] [address] Bili Total 1.4 mg/dL High 0.3-1.2 [facility] Comment on above: Performed By: #### C OMP #### [address] [address] Calcium [Mass/Vol] 10.2 mg/dL Normal 8.5-10.3 [facility] Comment on above: Performed By: #### C OMP #### [address] [address] Chloride [Moles/Vol] 100 mmol/L Normal 98-110 [facility] Comment on above: Performed By: #### C OMP #### [address] [address] CO2 [Moles/Vol] 19 mmol/L Low 22-32 [facility] Comment on above: Performed By: #### C OMP #### [address] [address] Creatinine [Mass/Vol] 1.47 mg/dL High 0.44-1.03 [facility] Comment on above: Performed By: #### C OMP #### [address] [address] Glucose [Mass/Vol] 85 mg/dL Normal 70-99 [facility] Comment on above: Performed By: #### C OMP #### [address] [address] Potassium [Moles/Vol] 3.7 mmol/L Normal 3.4-4.8 [facility] Comment on above: Performed By: #### C OMP #### [address] [address] Protein [Mass/Vol] 8.7 g/dL High 6.5-8.1 [facility] Comment on above: Performed By: #### C OMP #### [address] [address] Sodium [Moles/Vol] 137 mmol/L Normal 133-142 [facility] Comment on above: Performed By: #### C OMP #### [address] [address] Urea nitrogen [Mass/Vol] 25 mg/dL Normal 8-26 [facility] Comment on above: Performed By: #### C OMP #### [address] [address] Urea nitrogen/Creatinine [Mass ratio] 17.0 mg/mg Normal 10.0-20.0 [facility] Comment on above: Performed By: #### C OMP #### [address] [address] CPKon 03-16-2020 Creatine Phosphokinase 439 IU/L High 38-234 [facility] Comment on above: Performed By: #### C P #### [address] [address] Diff Autoon 03-16-2020 Baso Absolute 0.0 x10*3/mcL Normal 0.0-0.2 [facility] Comment on above: Performed By: #### . Automated Diff #### [address] [address] Basophils/100 WBC (Bld) 0.4 % Normal 0.0-1.5 [facility] Comment on above: Performed By: #### . Automated Diff #### [address] [address] Eos Absolute 0.0 x10*3/mcL Normal 0.0-0.4 [facility] Comment on above: Performed By: #### . Automated Diff #### [address] [address] Eosinophils/100 WBC (Bld) 0.1 % Normal 0.0-5.4 [facility] Comment on above: Performed By: #### . Automated Diff #### [address] [address] Lymphocytes (Bld) [#/Vol] 1.4 x10*3/mcL Normal 1.0-4.8 [facility] Comment on above: Performed By: #### . Automated Diff #### [address] [address] Lymphocytes/100 WBC (Bld) 10.8 % Low 27.2-40.8 [facility] Comment on above: Performed By: #### . Automated Diff #### [address] [address] [place] Absolute 1.5 x10*3/mcL High 0.1-1.1 [facility] Comment on above: Performed By: #### . Automated Diff #### [facility] [address] [place] [address] Monocytes/100 WBC (Bld) 11.4 % Normal 3.7-11.9 [facility] Comment on above: Performed By: #### . Automated Diff #### [facility] [address] [place] [address] Neutro Absolute 10.0 x10*3/mcL High 1.8-7.7 [facility] Comment on above: Performed By: #### . Automated Diff #### [facility] [address] [place] [address] Neutro Auto 77.3 % High 47.2-70.8 [facility] Comment on above: Performed By: #### . Automated Diff #### [address] [address] ED Note-Nursingon 03-16-2020 ED Note-Nursing Lab called about add ons Electronically signed by Barbara Holman 03/16/20 20:49 EDT Normal [facility] ED Note-Physicianon 03-16-20 ED Note-Physician Chief [...] that she has residential set up at [facility] in [place], [place] but she has to detox first. [...] She was seen by Alonso, social media director who has arranged for her to go to [facility] tomorrow as patient is interested in treatment. Verbally contracted to safety and filled out a safety plan. Alonso with social work spoke with academic affairs director, Jelena who will arrange for further follow-up when they arrive tomorrow. Family is agreeable with plan. Patient has good support. They will return if any changes of symptoms or concern. Silvia Castañeda scribing for and in the presence of Dr. Cronell. Scribe Attestation: The information in this document, created by the medical delivery driver for me, accurately reflects the services I [...] High Lymph Auto 03/16/20 20:39 10.8 Low [place] Auto 03/16/20 20:39 11.4 Eos Auto 03/16/20 20:39 0.1 Basophil Auto 03/16/20 20:39 0.4 Neutro Absolute 03/16/20 20:39 10.0 High Lymph Absolute 03/16/20 20:39 1.4 [place] Absolute 03/16/20 20:39 1.5 High Eos Absolute [...] Lima Cornell MD 03/17/2020 04:16 EDT Normal [facility] Ethanolon 03-16-2020 Ethanol [Mass/Vol] mg/dL Normal <=9 [facility] Comment on above: Result Comment: To c onvert mg/dL to g/dL, divide result by 1,000. Legal limit of intoxication is 80 mg/dL (0.08 g/dL). Performed By: #### A LC #### [address] [address] UA w Culture if Indon 2019 Color (U) Terri Normal [facility] Comment on above: Performed By: #### U CI #### [address] [address] Glucose (U) [Mass/Vol] Negative Normal Negative [facility] Comment on above: Performed By: #### U CI #### [address] [address] Ketones Ql (U) 20 mg/dL Abnormal Negative [facility] Comment on above: Performed By: #### U CI #### [address] [address] UA Blood Small Abnormal Negative [facility] Comment on above: Performed By: #### U CI #### [address] [address] UA Clarity Cloudy Normal [facility] Comment on above: Performed By: #### U CI #### [address] [address] UA Leukocyte Esterase Trace Abnormal Negative [facility] Comment on above: Performed By: #### U CI #### [address] [address] UA Nitrite Negative Normal Negative [facility] Comment on above: Performed By: #### U CI #### [address] [address] UA pH 5.0 Normal 4.5 - 7.8 [facility] Comment on above: Performed By: #### U CI #### [address] [address] UA Protein 100 mg/dL Abnormal Negative [facility] Comment on above: Performed By: #### U CI #### [address] [address] UA Source Clean Catch Normal [facility] Comment on above: Performed By: #### U CI #### [address] [address] UA Spec Grav 1.025 Normal 1.003-1.035 [facility] Comment on above: Performed By: #### U CI #### [address] [address] UA Urobilinogen 0.2 mg/dL Normal 0.2 - 1.0 [facility] Comment on above: Performed By: #### U CI #### [place] [id number] Urobilinogen Qn (U) Small Abnormal Negative [facility] Comment on above: Performed By: #### U CI #### [address] [address] UDS Compon 03-16-2020 Creatinine [Mass/Vol] mg/dL Normal [facility] Comment on above: Performed By: #### C [id number] #### [address] [address] Ur Amph Scrn Positive Abnormal NEG = <1000 [facility] Comment on above: Result Comment: This unconfirmed positive screening result is to be used for medical treatment purposes only. Unconfirmed screening results must not be used for non-medical purposes. (e.g. employment testing, legal testing). Performed By: #### C [id number] #### [address] [address] Ur Anastasia Scrn Negative Normal NEG = <200 [facility] Comment on above: Performed By: #### C [id number] #### [facility] [address] [place] [address] Ur Benzodia Scrn Negative Normal NEG = <200 [facility] Comment on above: Performed By: #### C [id number] #### [facility] [address] [place] [address] Ur Cannab Scrn Negative Normal NEG = <50 [facility] Comment on above: Performed By: #### C [id number] #### [facility] [address] [place] [address] [place] [address] Ur Cocaine Scrn Negative Normal NEG = <300 [facility] Comment on above: Performed By: #### C [id number] #### [address] [place] [address] Ur Methadone Scn Negative Normal NEG = <300 [facility] Comment on above: Performed By: #### C [id number] #### [address] [place] [address] Ur Opiate Scrn Negative Normal NEG = <300 [facility] Comment on above: Performed By: #### C [id number] #### [facility] [address] [place] [address], [place] [address] Ur Oxy Screen Negative Normal NEG = <100 [facility] Comment on above: Performed By: #### C [id number] #### [facility] [address] [place] [address] [place] [address] Ur Oxy Scrn Qnt 54 ng/mL Normal <=99 [facility] Comment on above: Performed By: #### C [id number] #### [facility] [address] [place] [address] [place] [address] Ur PCP Scrn Negative Normal NEG = <25 [facility] Comment on above: Performed By: #### C [id number] #### [address] [place] [address] UA pH 5.0 Normal 4.5 - 7.8 [facility] Comment on above: Performed By: #### C [id number] #### [facility] [address] [place] [address] UA Spec Grav 1.024 Normal 1.003-1.035 [facility] Comment on above: Performed By: #### C [id number] #### [facility] [address] [place] [address] Chlamydia/GC DNA, Uron 11-23 Chlamydia Probe, Ur Negative Normal NEG [facility] Comment on above: Result Comment: CHLA [...] Performed By: #### H IVCMB, PHEP #### [address] [id number] [employer]: Dom Fowler MD #### CP #### [facility] [address] [place], [facility] [address] [address] [employer]: Shakeel Graham MD Gonorrhea Probe, Ur Negative Normal NEG [facility] Comment on above: Result Comment: NEIS [...] Performed By: #### H IVCMB, PHEP #### [place] [address] [place], [place] [address] [employer]: Dom Fowler MD #### CP #### [facility] [address] [place] [address] [employer]: Shakeel Graham MD Cult,Urineon 11-22-2019 Cult,Urine Specimen Description .VOIDED URINE Special Requests NOT REPORTED Culture NO SIGNIFICANT GROWTH Report Status FINAL 11/22/2019 Normal [facility] Comment on above: Performed By: #### H IVCMB, PHEP #### [facility] [address] [place] [address] [employer]: Dom Fowler MD #### CP #### [facility] [address] [place] [address] [employer]: Shakeel Graham MD HIV Ag/Abon 11-21-2019 HIV Ag/Ab NONREACTIVE Normal NR [facility] Comment on above: Result Comment: No l aboratory evidence of HIV infection. If acute HIV infection is suspected, consider testing for HIV-1 RNA. Performed By: #### H IVCMB, PHEP #### [place] [address] [place] [address] [employer]: Dom Fowler MD #### CP #### [facility] [address] [place] [address] [employer]: Shakeel Graham MD HIV Screenon 11-21-2019 HIV Ag/Ab NONREACTIVE NONREACTIVE [place], [place] Comment on above: No laboratory eviden ce of HIV infection. If acute HIV infection is suspected, consider testing for HIV-1 RNA. Hep C Abon 11-21-2019 Hep C Ab REACTIVE Abnormal NR [facility] Comment on above: Result Comment: The [...] Performed By: #### H IVCMB, PHEP #### [facility] [address] [place] [address] [employer]: Dom Fowler MD #### CP #### [facility] [address] [place] [address] [place] [address] [employer]: Shakeel Graham MD Profileon 0 Hep B Surf Ag NONREACTIVE Normal NR [facility] Comment on above: Performed By: #### H IVCMB, PHEP #### [place] [address] [place] [address] [employer]: Dom Fowler MD #### CP #### [address] [place] [address] [employer]: Shakeel Graham MD T.pallidum Ab Screen NONREACTIVE Normal NR [facility] Comment on above: Result Comment: T. pallidum antibodies are not detected. There is no serological evidence of infection with T. pallidum (early primary syphilis cannot be excluded). Retest in 2-4 weeks if syphilis is clinically suspect. Performed By: #### H IVCMB, PHEP #### [address] [address] [employer]: Dom Fowler MD #### CP #### [address] [place], [place] [address] [employer]: Shakeel Graham MD Rubella Ab, IgG 323.1 IU/mL Normal [facility] Comment on above: Result Comment: REFERENCE RANGE: <5.0 NON-REACTIVE (non-immune) 5.0 TO 9.9 EQUIVOCAL >=10.0 REACTIVE (immune) Performed By: #### H IVCMB, PHEP #### [address] [address] [employer]: Dom Fowler MD #### CP #### [address] [place], [place] [address]83 [employer]: Shakeel Graham MD HCG, Quanton 11-20-2019 HCG, Quant 35553 IU/L High <5 [facility] Comment on above: Result Comment: Non-preg [...] Performed By: #### H IVCMB, PHEP #### [facility] [address] [place] [address] [employer]: Dom Fowler MD #### CP #### [facility] [address] [place] [address] [employer]: Shakeel Graham MD HCG, Quantitative, on 11-20-2019 hCG Quant 50605 High <5 IU/L [place], [place] Comment on above: Non-preg premeno <=5 Postmeno <=8 Male <=3 If HCG results do not concur with clinical observations, additional testing to confirm results is recommended. Elevated results not associated with may be found in patients with other diseases such as tumors of the germ cells (testis, ovaries, etc.), bladder, pancreas, stomach, lungs, and liver. Interpretation and review of laboratory results Abnormal [place], [place] Hepatitis C Antibodyon 11-19 Hepatitis C Ab REACTIVE Abnormal NONREACTIVE [place], [place] Comment on above: The hepatitis C [...] Interpretation and review of laboratory results Abnormal [place], [place] TYPE AND SCREENon 0 11-20-2019 ABO/Rh Positive [place], [place] Profileon 0 Abs. Basophil 0.03 k/uL Normal 0.00-0.20 [facility] Comment on above: Performed By: #### H IVCMB, PHEP #### [facility] [address] [place] [address] [employer]: Dom Fowler MD #### CP #### [facility] [address] [place] [address] Dr. [place] [id number] ( [employer]: Shakeel Graham MD Abs.Imm.Granulocyte <0.03 Normal 0.00-0.30 [facility] Comment on above: Performed By: #### H IVCMB, PHEP #### [place] [address] [employer]: Dom Fowler MD #### CP #### [address] [place] [id number] ( [employer]: Shakeel Graham MD Abs.Neutrophil (Seg) 2.95 k/uL Normal 1.50-8.10 [facility] Comment on above: Performed By: #### H IVCMB, PHEP #### [place] [address] [employer]: Dom Fowler MD #### CP #### [address] [place] [id number] ( [employer]: Shakeel Graham MD Basophils/100 WBC (Bld) 1 % Normal 0-2 [facility] Comment on above: Performed By: #### H IVCMB, PHEP #### [place] [address] [employer]: Dom Fowler MD #### CP #### [facility] [address] [place] [address] [place] [address] [employer]: Shakeel Graham MD Eosinophils (Bld) [#/Vol] 0.09 10*3/uL Normal 0.00-0.44 [facility] Comment on above: Performed By: #### H IVCMB, PHEP #### [address] [address] [employer]: Dom Fowler MD #### CP #### [address] [place], [place] [id number] [employer]: Shakeel Graham MD Eosinophils/100 WBC (Bld) 2 % Normal 1-4 [facility] Comment on above: Performed By: #### H IVCMB, PHEP #### [address] [address] [employer]: Dom Fowler MD #### CP #### [address] [place], [place] 1527483 [employer]: Shakeel Graham MD Erythrocyte distribution width (RBC) [Ratio] 14.0 % Normal 11.8-14.4 [facility] Comment on above: Performed By: #### H IVCMB, PHEP #### [address] [id number] [employer]: Dom Fowler MD #### CP #### [address] [place], [place] [address] [employer]: Shakeel Graham MD Hematocrit (Bld) [Volume fraction] 37.7 % Normal 36.3-47.1 [facility] Comment on above: Performed By: #### H IVCMB, PHEP #### [address] [address] [employer]: Dom Fowler MD #### CP #### [address] [place], [place] 0317483 [employer]: Shakeel Graham MD Hemoglobin (Bld) [Mass/Vol] 11.8 g/dL Low 11.9-15.1 [facility] Comment on above: Performed By: #### H IVCMB, PHEP #### [address] [address] [employer]: Dom Fowler MD #### CP #### [address] [place] [address] [employer]: Shakeel Graham MD Immature granulocytes (Bld) [#/Vol] 0 % Normal 0 [facility] Comment on above: Performed By: #### H IVCMB, PHEP #### [address] [address] [employer]: Dom Fowler MD #### CP #### [facility] [address] [place] [phone] [employer]: Shakeel Graham MD Lymphocytes (Bld) [#/Vol] 1.50 10*3/uL Normal 1.10-3.70 [facility] Comment on above: Performed By: #### H IVCMB, PHEP #### [address] [address] [employer]: Dom Fowler MD #### CP #### [facility] [address] [place] [address] [place] [id number] [employer]: Shakeel Graham MD Lymphocytes/100 WBC (Bld) 30 % Normal 24-43 [facility] Comment on above: Performed By: #### H IVCMB, PHEP #### [address] [address] [employer]: Dom Fowler MD #### CP #### [address] [place] [phone] [employer]: Shakeel Graham MD MCH (RBC) [Entitic mass] 26.5 pg Normal 25.2-33.5 [facility] Comment on above: Performed By: #### H IVCMB, PHEP #### [address] [address] [employer]: Dom Fowler MD #### CP #### [facility] [address] [place] [phone] [employer]: Shakeel Graham MD MCHC (RBC) [Mass/Vol] 31.3 g/dL Normal 28.4-34.8 [facility] Comment on above: Performed By: #### H IVCMB, PHEP #### [address] [address] [employer]: Dom Fowler MD #### CP #### [address] [place] [phone] [employer]: Shakeel Graham MD MCV (RBC) [Entitic vol] 84.5 fL Normal 82.6-102.9 [facility] Comment on above: Performed By: #### H IVCMB, PHEP #### [address] [address] [employer]: Dom Fowler MD #### CP #### [address] [place] [phone] [employer]: Shakeel Graham MD Monocytes (Bld) [#/Vol] 0.37 10*3/uL Normal 0.10-1.20 [facility] Comment on above: Performed By: #### H IVCMB, PHEP #### [address] [address] [employer]: Dom Fowler MD #### CP #### [address] [place] [phone] [employer]: Shakeel Graham MD Monocytes/100 WBC (Bld) 8 % Normal 3-12 [facility] Comment on above: Performed By: #### H IVCMB, PHEP #### [address] [address] [employer]: Dom Fowler MD #### CP #### [address] [place] [address] [employer]: Shakeel Graham MD Neutrophil (Seg) 59 % Normal 36-65 [facility] Comment on above: Performed By: #### H IVCMB, PHEP #### [place] [address] [place] [address] [employer]: Dom Fowler MD #### CP #### [facility] [address] [place], [place] [address] [employer]: Shakeel Graham MD NRBC Automated 0.0 per 100 WBC Normal 0.0 [facility] Comment on above: Performed By: #### H IVCMB, PHEP #### [address] [address] [employer]: Dom Fowler MD #### CP #### [facility] [address] [place] [phone] [employer]: Shakeel Graham MD Platelet mean volume (Bld) [Entitic vol] 11.2 fL Normal 8.1-13.5 [facility] Comment on above: Performed By: #### H IVCMB, PHEP #### [address] [address] [employer]: Dom Fowler MD #### CP #### [facility] [address] [place] [address] [place] [phone] [employer]: Shakeel Graham MD Platelets (Bld) [#/Vol] 254 10*3/uL Normal 138-453 [facility] Comment on above: Performed By: #### H IVCMB, PHEP #### [address] [address] [employer]: Dom Fowler MD #### CP #### [facility] [address] [place] [address] [place], [place] [phone] [employer]: Shakeel Graham MD RBC (Bld) [#/Vol] 4.46 10*6/uL Normal 3.95-5.11 [facility] Comment on above: Performed By: #### H IVCMB, PHEP #### [address] [address] [employer]: Dom Fowler MD #### CP #### [facility] [address] [place] [address] [place] [address] [employer]: Shakeel Graham MD WBC (Bld) [#/Vol] 5.0 10*3/uL Normal 3.5-11.3 [facility] Comment on above: Performed By: #### H IVCMB, PHEP #### [address] [address] [employer]: Dom Fowler MD #### CP #### [address] [place] [address] [employer]: Shakeel Graham MD Auto Diff Performed NOT REPORTED Normal [facility] Comment on above: Performed By: #### H IVCMB, PHEP #### [address] [address] [employer]: Dom Fowler MD #### CP #### [address] [place] [address] [employer]: Shakeel Graham MD Platelets (Bld) [#/Vol] NOT REPORTED Normal [facility] Comment on above: Performed By: #### H IVCMB, PHEP #### [address] [address] [employer]: Dom Fowler MD #### CP #### [address] [place] [address] [employer]: Shakeel Graham MD RBC morphology finding Nom (Bld) NOT REPORTED Normal [facility] Comment on above: Performed By: #### H IVCMB, PHEP #### [address] [address] [employer]: Dom Fowler MD #### CP #### [address] [place] [address] [employer]: Shakeel Graham MD WBC Morphology NOT REPORTED Normal [facility] Comment on above: Performed By: #### H IVCMB, PHEP #### [address] [id number] [employer]: Dom Fowler MD #### CP #### [address] [place] [id number] [employer]: Shakeel Graham MD Type + Scrnon 11-19 Type + Scrn Negative Normal [facility] Comment on above: Performed By: #### H IVCMB, PHEP #### [address] [address] [employer]: Dom Fowler MD #### CP #### [address] [place] [id number] [employer]: Shakeel Graham MD [facility] Amphetamine(s),Ur Negative Normal NEG [facility] Comment on above: Performed By: #### H IVCMB, PHEP #### [address] [address] [employer]: Dom Fowler MD #### CP #### [address] [place], [place] [phone] [employer]: Shakeel Graham MD Barbiturate(s),Ur Negative Normal NEG [facility] Comment on above: Performed By: #### H IVCMB, PHEP #### [address] [address] [employer]: Dom Fowler MD #### CP #### [address] [place] [address] [employer]: Shakeel Graham MD Benzodiazepine(s) Negative Normal NEG [facility] Comment on above: Performed By: #### H IVCMB, PHEP #### [facility] [address] [place] [address] [employer]: Dom Fowler MD #### CP #### [facility] [address] [place] [address] Dr. [place], [place] [phone] [employer]: Shakeel Graham MD Buprenorphrine, Ur Negative Normal NEG [facility] Comment on above: Performed By: #### H IVCMB, PHEP #### [address] [address] [employer]: Dom Fowler MD #### CP #### [facility] [address] [place] [address] [place] [address] [employer]: Shakeel Graham MD Cannabinoid(s),Ur Negative Normal NEG [facility] Comment on above: Performed By: #### H IVCMB, PHEP #### [address] [address] [employer]: Dom Fowler MD #### CP #### [facility] [address] [place] [address] Dr. [place] [phone] [employer]: Shakeel Graham MD Cocaine Metabolite Negative Normal [facility] Comment on above: Performed By: #### H IVCMB, PHEP #### [address] [address] [employer]: Dom Fowler MD #### CP #### [facility] [address] [place] [address] Dr. [place], [place] [phone] [employer]: Shakeel Graham MD Methadone Ql (U) Negative Normal NEG [facility] Comment on above: Performed By: #### H IVCMB, PHEP #### [address] [address] [employer]: Dom Fowler MD #### CP #### [facility] [address] [place] [address] Dr. Felix, [place] [phone] [employer]: Shakeel Graham MD Methamphetamine, Ur Negative Normal NEG [facility] Comment on above: Performed By: #### H IVCMB, PHEP #### [facility] [address] [place] [address] [employer]: Dom Fowler MD #### CP #### [address] [place], [place] [phone] [employer]: Shakeel Graham MD Opiate(s), Ur Negative Normal NEG [facility] Comment on above: Performed By: #### H IVCMB, PHEP #### [address] [address] [employer]: Dom Fowler MD #### CP #### [address] [place], [place] [phone] [employer]: Shakeel Graham MD Oxycodone, Urine Negative Normal NEG [facility] Comment on above: Performed By: #### H IVCMB, PHEP #### [facility] [address] [place] [address] [employer]: Dom Fowler MD #### CP #### [address] [place], [place] [phone] [employer]: Shakeel Graham MD Phencyclidine, Ur Negative Normal NEG [facility] Comment on above: Performed By: #### H IVCMB, PHEP #### [address] [address] [employer]: Dom Fowler MD #### CP #### [address] [place], [place] [phone] [employer]: Shakeel Graham MD Propoxyphene,Urine Negative Normal NEG [facility] Comment on above: Performed By: #### H IVCMB, PHEP #### [address] [address] [employer]: Dom Fowler MD #### CP #### [facility] [address] [place] [address] [place] [address] [employer]: Shakeel Graham MD Tricyclic antidepressants Screen Ql (U) Negative Normal NEG [facility] Comment on above: Result Comment: Drug screen results are to be used for medical purposes only. All positive results are unconfirmed. Testing for employment or legal uses should be sent to a reference laboratory for confirmation. Performed By: #### H IVCMB, PHEP #### [address] [address] [employer]: Dom Fowler MD #### CP #### [address] [place], [place] [phone] [employer]: Shakeel Graham MD Interpretive Info NOT REPORTED Normal [facility] Comment on above: Performed By: #### H IVCMB, PHEP #### [address] [address] [employer]: Dom Fowler MD #### CP #### [address] [place], [place] [phone] [employer]: Shakeel Graham MD MDMA, Urine NOT REPORTED Normal NEG [facility] Comment on above: Performed By: #### H IVCMB, PHEP #### [address] [address] [employer]: oDm Fowler MD #### CP #### [facility] [address] [place] [address] Dr. [place], [place] [phone] [employer]: Shakeel Graham MD Urine Drug Screen, Magda grieron 11-20-2019 Amphetamine Screen, Ur Negative NEGATIVE [facility] [place] Barbiturate Screen, Ur Negative NEGATIVE [facility] [place] Benzodiazepine Screen, Urine Negative NEGATIVE [facility] [place] Buprenorphine Urine Negative NEGATIVE [facility] [place] Cannabinoid Scrn, Ur Negative NEGATIVE [facility] [place] Cocaine Metabolite, Urine Negative NEGATIVE [facility] [place] MDMA, Urine NOT REPORTED NEGATIVE [facility] [place] Methadone Screen, Urine Negative NEGATIVE [facility] [place] Methamphetamine, Urine Negative NEGATIVE [facility] [place] Opiates, Urine Negative NEGATIVE [facility] [place] Oxycodone Screen, Ur Negative NEGATIVE [facility] [place] Phencyclidine, Urine Negative NEGATIVE [facility] [place] Propoxyphene, Urine Negative NEGATIVE [facility] [place] Test Information NOT REPORTED [facility] [place] Tricyclic Antidepressants, Urine Negative NEGATIVE [facility] [place] Comment on above: Drug screen results are to be used for medical purposes only. All positive results are unconfirmed. Testing for employment or legal uses should be sent to a reference laboratory for confirmation. Chlamydia/GC DNA, Uron 06-20 Chlamydia Probe, Ur Negative Normal NEG [facility] Comment on above: Result Comment: CHLA [...] nucleic acid target. Performed By: #### U [facility] #### [address] [place] [address] [employer]: Dom Fowler MD Gonorrhea Probe, Ur Negative Normal NEG [facility] Comment on above: Result Comment: NEIS [...] target. Performed By: #### U CGP #### [address] [address] [employer]: Dom Fowler MD Cult,Urineon 06-20-2019 Cult,Urine Specimen Description .CLEAN CATCH URINE Special Requests NOT REPORTED Culture NO SIGNIFICANT GROWTH Report Status FINAL 06/20/2019 Normal [facility] Comment on above: Performed By: #### H IVCMB, PHEP #### [address] [address] [employer]: Dom Fowler MD #### CP #### [facility] [address] [place] [address] [employer]: Shakeel Graham MD HIV Ag/Abon 06-20-2019 HIV Ag/Ab NONREACTIVE Normal [facility] Comment on above: Result Comment: No l aboratory evidence of HIV infection. If acute HIV infection is suspected, consider testing for HIV-1 RNA. Performed By: #### A HCV, HIVCMB #### [address] [address] [employer]: Dom Fowler MD Hep C Abon 06-20-2019 Hep C Ab REACTIVE Abnormal [facility] Comment on above: Result Comment: The hepatitis [...] Performed By: #### A HCV, HIVCMB #### [address] [address] [employer]: Dom Fowler MD Profileon 9 T.pallidum Ab Screen NONREACTIVE Normal [facility] Comment on above: Result Comment: T. pallidum antibodies are not detected. There is no serological evidence of infection with T. pallidum (early primary syphilis cannot be excluded). Retest in 2-4 weeks if syphilis is clinically suspect. Performed By: #### P RENAT #### [address] [place] [address] [employer]: Dom Fowler MD [facility] [address] [place] [address] Dr. Felix, [place] [phone] [employer]: Shakeel Graham MD Hep B Surf Ag NONREACTIVE Normal [facility] Comment on above: Performed By: #### P RENAT #### [address] [address] [employer]: Dom Fowler MD [address] [place] [phone] [employer]: Shakeel Graham MD Rubella Ab, IgG 286.1 IU/mL Normal [facility] Comment on above: Result Comment: REFERENCE RANGE: <5.0 NON-REACTIVE (non-immune) 5.0 TO 9.9 EQUIVOCAL >=10.0 REACTIVE (immune) Performed By: #### P RENAT #### [address] [address] [employer]: Dom Fowler MD [address] Felix, [facility] [employer]: Shakeel Graham MD HCG, Quanton 06-19-2019 HCG, Quant 03189 IU/L High <5 [facility] Comment on above: Result Comment: Non-preg [...] liver. Performed By: #### B HCG #### [facility] [address] [place] [address] [place] [address] [employer]: Shakeel Graham MD HCG, Quantitative, on 06-19-2019 hCG Quant 87583 High <5 IU/L [place] Comment on above: Non-preg premeno <=5 Postmeno <=8 Male <=3 If HCG results do not concur with clinical observations, additional testing to confirm results is recommended. Elevated results not associated with may be found in patients with other diseases such as tumors of the germ cells (testis, ovaries, etc.), bladder, pancreas, stomach, lungs, and liver. Interpretation and review of laboratory results Abnormal [place] HIV Screenon 06-19-2019 HIV Ag/Ab NONREACTIVE NONREACTIVE [place], [place] Comment on above: No laboratory eviden ce of HIV infection. If acute HIV infection is suspected, consider testing for HIV-1 RNA. Hepatitis C Antibodyon 06-19 Hepatitis C Ab REACTIVE Abnormal [facility]REACTIVE [facility] [place] [place] Comment on above: The hepatitis C [...] Interpretation and review of laboratory results Abnormal [place] PROFILE Ion 019 Basophils (Bld) [#/Vol] 10*3/uL [place] Basophils/100 WBC (Bld) 1 % 0 - 2 % [place] Differential Type NOT REPORTED [place] Eosinophils (Bld) [#/Vol] 0.09 10*3/uL [place] Eosinophils/100 WBC (Bld) 2 % 1 - 4 % [place] Erythrocyte distribution width (RBC) [Ratio] 15.7 % High 11.8 - 14.4 % [place] Hematocrit (Bld) [Volume fraction] 36.5 % 36.3 - 47.1 % [place] Hemoglobin (Bld) [Mass/Vol] 11.2 g/dL Low 11.9 - 15.1 g/dL [place] Hepatitis B Surface Ag NONREACTIVE NONREACTIVE [place] Immature granulocytes (Bld) [#/Vol] 0 % 0 [place] Immature granulocytes (Bld) [#/Vol] 10*3/uL [place] Interpretation and review of laboratory results Abnormal [place] Lymphocytes (Bld) [#/Vol] 1.98 10*3/uL [place] Lymphocytes/100 WBC (Bld) 46 % High 24 - 43 % [place] MCH (RBC) [Entitic mass] 25.6 pg 25.2 - 33.5 pg [place] MCHC (RBC) [Mass/Vol] 30.7 g/dL 28.4 - 34.8 g/dL [place] MCV (RBC) [Entitic vol] 83.3 fL 82.6 - 102.9 fL [place] Monocytes (Bld) [#/Vol] 0.37 10*3/uL [place] Monocytes/100 WBC (Bld) 9 % 3 - 12 % [place] Platelet mean volume (Bld) [Entitic vol] 11.6 fL 8.1 - 13.5 fL [place] Platelets (Bld) [#/Vol] NOT REPORTED [place] Platelets (Bld) [#/Vol] 196 10*3/uL [place] RBC (Bld) [#/Vol] 4.38 10*6/uL 3.95 - 5.1 1 m/uL [place] RBC morphology finding Nom (Bld) NOT REPORTED [place] Rubella virus IgG Ql (S) 286.1 IU/mL [place] Comment on above: REFERENCE RANGE: <5.0 NON-REACTIVE (non-immune) 5.0 TO 9.9 EQUIVOCAL >=10.0 REACTIVE (immune) Segmented neutrophils/100 WBC (Bld) 42 % 36 - 65 % [place] Segs Absolute 1.75 [place] T. pallidum, IgG NONREACTIVE NONREACTIVE [place] Comment on above: T. pallidum antibodies are not detected. There is no serological evidence of infection with T. pallidum (early primary syphilis cannot be excluded). Retest in 2-4 weeks if syphilis is clinically suspect. WBC (Bld) [#/Vol] 4.2 10*3/uL [place] WBC (Bld) [#/Vol] 0.0 10*3/uL 0.0 per 100 WBC [place] WBC Morphology NOT REPORTED [place], [place] TYPE AND SCREENon 1 ABO/Rh Positive [place] Profileon 9 Abs. Basophil <0.03 Normal 0.00-0.20 [facility] Comment on above: Performed By: #### P RENAT #### [address] [address] [employer]: Dom Fowler MD [address] [place] [phone] [employer]: Shakeel Graham MD Abs.Imm.Granulocyte <0.03 Normal 0.00-0.30 [facility] Comment on above: Performed By: #### P RENAT #### [address] [address] [employer]: Dom Fowler MD [address] [place] [phone] [employer]: Shakeel Graham MD Abs.Neutrophil (Seg) 1.75 k/uL Normal 1.50-8.10 [facility] Comment on above: Performed By: #### P RENAT #### [address] [address] [employer]: Dom Fowler MD [address] [place] [phone] [employer]: Shakeel Graham MD Basophils/100 WBC (Bld) 1 % Normal 0-2 [facility] Comment on above: Performed By: #### P RENAT #### [address] [address] [employer]: Dom Fowler MD [address] Felix [facility] [employer]: Shakeel Graham MD Eosinophils (Bld) [#/Vol] 0.09 10*3/uL Normal 0.00-0.44 [facility] Comment on above: Performed By: #### P RENAT #### [address] [address] [employer]: Dom Fowler MD [address] [place] [phone] [employer]: Shakeel Graham MD Eosinophils/100 WBC (Bld) 2 % Normal 1-4 [facility] Comment on above: Performed By: #### P RENAT #### [address] [address] [employer]: Dom Fowler MD [address] [place] [phone] [employer]: Shakeel Graham MD Erythrocyte distribution width (RBC) [Ratio] 15.7 % High 11.8-14.4 [facility] Comment on above: Performed By: #### P RENAT #### [address] [address] [employer]: Dom Fowler MD [address] [place] [phone] [employer]: Shakeel Graham MD Hematocrit (Bld) [Volume fraction] 36.5 % Normal 36.3-47.1 [facility] Comment on above: Performed By: #### P RENAT #### [address] [address] [employer]: Dom Fowler MD [address] [place] [phone] [employer]: Shakeel Graham MD Hemoglobin (Bld) [Mass/Vol] 11.2 g/dL Low 11.9-15.1 [facility] Comment on above: Performed By: #### P RENAT #### [address] [place] [address] [employer]: Dom Fowler MD [facility] [address] [place] [address] Dr. [place] [phone] [employer]: Shakeel Graham MD Immature granulocytes (Bld) [#/Vol] 0 % Normal 0 [facility] Comment on above: Performed By: #### P RENAT #### [address] [address] [employer]: Dom Fowler MD [facility] [address] [place] [address] Dr. [place] [phone] [employer]: Shakeel Graham MD Lymphocytes (Bld) [#/Vol] 1.98 10*3/uL Normal 1.10-3.70 [facility] Comment on above: Performed By: #### P RENAT #### [address] [address] [employer]: Dom Fowler MD [address] [place] [address] [employer]: Shakeel Graham MD Lymphocytes/100 WBC (Bld) 46 % High 24-43 [facility] Comment on above: Performed By: #### P RENAT #### [address] [address] [employer]: Dom Fowler MD [facility] [address] [place] [address] [place] [phone] [employer]: Shakeel Graham MD MCH (RBC) [Entitic mass] 25.6 pg Normal 25.2-33.5 [facility] Comment on above: Performed By: #### P RENAT #### [address] [address] [employer]: Dom Fowler MD [address] [place], [place] [phone] [employer]: Shakeel Graham MD MCHC (RBC) [Mass/Vol] 30.7 g/dL Normal 28.4-34.8 [facility] Comment on above: Performed By: #### P RENAT #### [address] [address] [employer]: Dom Fowler MD [address] [place] [phone] [employer]: Shakeel Graham MD MCV (RBC) [Entitic vol] 83.3 fL Normal 82.6-102.9 [facility] Comment on above: Performed By: #### P RENAT #### [address] [address] [employer]: Dom Fowler MD [address] [place] [phone] [employer]: Shakeel Graham MD Monocytes (Bld) [#/Vol] 0.37 10*3/uL Normal 0.10-1.20 [facility] Comment on above: Performed By: #### P RENAT #### [address] [address] [employer]: Dom Fowler MD [address] [place] [address] [employer]: Shakeel Graham MD Monocytes/100 WBC (Bld) 9 % Normal 3-12 [facility] Comment on above: Performed By: #### P RENAT #### [address] [address] [employer]: Dom Fowler MD [address] [place] [phone] [employer]: Shakeel Graham MD Neutrophil (Seg) 42 % Normal 36-65 [facility] Comment on above: Performed By: #### P RENAT #### [address] [place] [address] [employer]: Dom Fowler MD [address] [place] [phone] [employer]: Shakeel Graham MD NRBC Automated 0.0 per 100 WBC Normal 0.0 [facility] Comment on above: Performed By: #### P RENAT #### [address] [address] [employer]: Dom Fowler MD [address] Felix [facility] [employer]: Shakeel Graham MD Platelet mean volume (Bld) [Entitic vol] 11.6 fL Normal 8.1-13.5 [facility] Comment on above: Performed By: #### P RENAT #### [address] [address] [employer]: Dom Fowler MD [address] [place] [phone] [employer]: Shakeel Graham MD Platelets (Bld) [#/Vol] 196 10*3/uL Normal 138-453 [facility] Comment on above: Performed By: #### P RENAT #### [address] [address] [employer]: Dom Fowler MD [address] [place] [phone] [employer]: Shakeel Graham MD RBC (Bld) [#/Vol] 4.38 10*6/uL Normal 3.95-5.11 [facility] Comment on above: Performed By: #### P RENAT #### [address] [address] [employer]: Dom Fowler MD [address] [place] [address] [employer]: Shakeel Graham MD WBC (Bld) [#/Vol] 4.2 10*3/uL Normal 3.5-11.3 [facility] Comment on above: Performed By: #### P RENAT #### [address] [address] [employer]: Dom Fowler MD [address] [place] [address] [employer]: Shakeel Graham MD Auto Diff Performed NOT REPORTED Normal [facility] Comment on above: Performed By: #### P RENAT #### [address] [address] [employer]: Dom Fowler MD [address] [place] [address] [employer]: Shakeel Graham MD Platelets (Bld) [#/Vol] NOT REPORTED Normal [facility] Comment on above: Performed By: #### P RENAT #### [address] [address] [employer]: Dom Fowler MD [address] [place] [address] [employer]: Shakeel Graham MD RBC morphology finding Nom (Bld) NOT REPORTED Normal [facility] Comment on above: Performed By: #### P RENAT #### [address] [address] [employer]: Dom Fowler MD [address] [place] [address] [employer]: Shakeel Graham MD WBC Morphology NOT REPORTED Normal [facility] Comment on above: Performed By: #### P RENAT #### [address] [address] [employer]: Dom Fowler MD [address] Felix [place] [phone] [employer]: Shakeel Graham MD Type + Scrnon 06-19 Type + Scrn Negative [facility] Comment on above: Performed By: #### P RTYS #### [facility] [address] [place], [place] [phone] [employer]: Shakeel Graham MD Toxicology Scree, Urineon Amphetamine(s),Ur Negative Normal NEG [facility] Comment on above: Performed By: #### C PDAU #### [facility] [address] [place], [place] [phone] [employer]: Shakeel Graham MD Barbiturate(s),Ur Negative Normal NEG [facility] Comment on above: Performed By: #### C PDAU #### [facility] [address] [place], [facility] [employer]: Shakeel Graham MD Benzodiazepine(s) Negative Normal [facility] Comment on above: Performed By: #### C PDAU #### [facility] [address] [place] [phone] [employer]: Shakeel Graham MD Buprenorphrine, Ur Negative Normal [facility] Comment on above: Performed By: #### C PDAU #### [facility] [address] [place], [facility] [address] [employer]: Shakeel Graham MD Cannabinoid(s),Ur Negative Normal NEG [facility] Comment on above: Performed By: #### C PDAU #### [facility] [address] [place], [place] [phone] [employer]: Shakeel Graham MD Cocaine Metabolite Negative Normal [facility] Comment on above: Performed By: #### C PDAU #### [facility] [address] [place], [place] [phone] [employer]: Shakeel Graham MD Methadone Ql (U) Negative Normal NEG [facility] Comment on above: Performed By: #### C PDAU #### [facility] [address] [place], [place] [phone] [employer]: Shakeel Graham MD Methamphetamine, Ur Negative Normal NEG [facility] Comment on above: Performed By: #### C PDAU #### [facility] [address] [place], [place] [phone] [employer]: Shakeel Graham MD Opiate(s), Ur Negative Normal NEG [facility] Comment on above: Performed By: #### C PDAU #### [facility] [address] [place] [address] [employer]: Shakeel Graham MD Oxycodone, Urine Negative Normal NEG [facility] Comment on above: Performed By: #### C PDAU #### [facility] [address] [place], [place] [phone] [employer]: Shakeel Graham MD Phencyclidine, Ur Negative Normal [facility] Comment on above: Performed By: #### C PDAU #### [facility] [address] [place], [place] [phone] [employer]: Shakeel Graham MD Propoxyphene,Urine Negative Normal NEG [facility] Comment on above: Performed By: #### C PDAU #### [facility] [address] [place], [place] [phone] [employer]: Shakeel Graham MD Tricyclic antidepressants Screen Ql (U) Positive Abnormal NEG [facility] Comment on above: Result Comment: Drug screen results are to be used for medical purposes only. All positive results are unconfirmed. Testing for employment or legal uses should be sent to a reference laboratory for confirmation. Performed By: #### C PDAU #### [facility] [address] [place] [address] [employer] Production: Shakeel Graham MD Interpretive Info NOT REPORTED Normal [facility] Comment on above: Performed By: #### C PDAU #### [facility] [address] [place] [address] [employer] Production: Shakeel Graham MD MDMA, Urine NOT REPORTED Normal NEG [facility] Comment on above: Performed By: #### C PDAU #### [facility] [address] [place] [address] [employer] Production: Shakeel Graham MD Urine Drug Screen, Magda [...] Ag/Abon 05-10-2019 HIV Ag/Ab NONREACTIVE Normal NR [facility] Comment on above: Result Comment: No l aboratory evidence of HIV infection. If acute HIV infection is suspected, consider testing for HIV-1 RNA. Performed By: #### H IVCMB, PHEP #### [facility] [place] [address] [employer] Production: Dom Fowler MD #### CP #### [facility] [address] [place], [place] [phone] [employer] Production: Shakeel Graham MD Hepatitis Acute [employer] [facility] 05-10 Hep A Ab,IgM NONREACTIVE Normal NR [facility] Comment on above: Performed By: #### H IVCMB, PHEP #### [address] [address] [employer] Production: Dom Fowler MD #### CP #### [address] [place] [address] [employer] Production: Shakeel Graham MD Hep B Core Ab,IgM NONREACTIVE Normal [facility] Comment on above: Performed By: #### H IVCMB, PHEP #### [address] [address] [employer] Production: Dom Fowler MD #### CP #### [facility] [address] [place] [address] [place]. [place], [place] [id number] [employer] Production: Shakeel Graham MD Hep B Surf Ag NONREACTIVE Normal [facility] Comment on above: Performed By: #### H IVCMB, PHEP #### [address] [address] [employer] Production: Dom Fowler MD #### CP #### [facility] [address] [place] [address] Dr. [place], [place] [phone] [employer] Production: Shakeel Graham MD Hep C Ab REACTIVE Abnormal [facility] Comment on above: Result Comment: The hepatitis [...] Performed By: #### H IVCMB, PHEP #### [address] [place] [address] [employer] Production: Dom Fowler MD #### CP #### [facility] [address] [place] [address] [place], [place] [phone] [employer] Production: Shakeel Graham MD Comp Metabolic Profon 2018 (cont.) Normal [facility] Comment on above: Result Comment: Aver age GFR for 20-29 years old: 116 mL/min/1.73sq m Chronic Kidney Disease: <60 mL/min/1.73sq m Kidney failure: <15 mL/min/1.73sq m eGFR calculated using average adult body mass. Additional eGFR calculator available at: http://www.[employer]/multiple_crcl_2011.htm Performed By: #### H IVCMB, PHEP #### [address] [address] [employer] Production: Dom Fowler MD #### CP #### [facility] [address] [place] [address] [place], [place] [phone] [employer] Production: Shakeel Graham MD Albumin [Mass/Vol] 4.3 g/dL Normal 3.5-5.2 [facility] Comment on above: Performed By: #### H IVCMB, PHEP #### [address] [address] [employer] Production: Dom Fowler MD #### CP #### [address] [place], [place] [phone] [employer] Production: Shakeel Graham MD Albumin/Globulin [Mass ratio] 1.4 {ratio} Normal 1.0-2.5 [facility] Comment on above: Performed By: #### H IVCMB, PHEP #### [address] [address] [employer] Production: Dom Fowler MD #### CP #### [facility] [address] [place], [place] [id number] [employer] Production: Shakeel Graham MD Alkaline Phos 50 U/L Normal 35-104 [facility] Comment on above: Performed By: #### H IVCMB, PHEP #### [address] [address] [employer] Production: Dom Fowler MD #### CP #### [facility] [address] [place] [address] Dr[place], [place] [phone] [employer] Production: Shakeel Graham MD ALT [Catalytic activity/Vol] 9 U/L Normal 5-33 [facility] Comment on above: Performed By: #### H IVCMB, PHEP #### [address] [address] [employer] Production: Dom Fowler MD #### CP #### [address] [place], [place] [phone] [employer] Production: Shakeel Graham MD Anion gap [Moles/Vol] 8 mmol/L Low 9-17 [facility] Comment on above: Performed By: #### H IVCMB, PHEP #### [address] [address] [employer] Production: Dom Fowler MD #### CP #### [address] [place], [place] [phone] [employer] Production: Shakeel Graham MD AST [Catalytic activity/Vol] 15 U/L Normal <32 [facility] Comment on above: Performed By: #### H IVCMB, PHEP #### [address] [address] [employer] Production: Dom Fowler MD #### CP #### [address] [place], [place] [id number] [employer] Production: Shakeel Graham MD Bilirubin Ql (U) 0.31 mg/dL Normal 0.3-1.2 [facility] Comment on above: Performed By: #### H IVCMB, PHEP #### [facility] [address] [place] [address] [employer] Production: Dom Fowler MD #### CP #### [facility] [address] [place], [place] [phone] [employer] Production: Shakeel Graham MD BUN/CRE Ratio 20 Normal 9-20 [facility] Comment on above: Performed By: #### H IVCMB, PHEP #### [address] [address] [employer] Production: Dom Fowler MD #### CP #### [facility] [address] [place], [place] [phone] [employer] Production: Shakeel Graham MD Calcium [Mass/Vol] 9.4 mg/dL Normal 8.6-10.4 [facility] Comment on above: Performed By: #### H IVCMB, PHEP #### [address] [address] [employer] Production: Dom Fowler MD #### CP #### [facility] [address] [place] [address] Dr. [place], [place] [phone] [employer] Production: Shakeel Graham MD Chloride [Moles/Vol] 102 mmol/L Normal 98-107 [facility] Comment on above: Performed By: #### H IVCMB, PHEP #### [address] [address] [employer] Production: Dom Fowler MD #### CP #### [facility] [address] [place], [place] [phone] [employer] Production: Shakeel Graham MD CO2 [Moles/Vol] 28 mmol/L Normal 20-31 [facility] Comment on above: Performed By: #### H IVCMB, PHEP #### [address] [address] [employer] Production: Dom Fowler MD #### CP #### [facility] [address] [place], [place] [phone] [employer] Production: Shakeel Graham MD Creatinine [Mass/Vol] 0.92 mg/dL High 0.50-0.90 [facility] Comment on above: Performed By: #### H IVCMB, PHEP #### [address] [address] [employer] Production: Dom Fowler MD #### CP #### [address] [place] [address] [employer] Production: Shakeel Graham MD GFR, Amer >60 Normal >60 [facility] Comment on above: Performed By: #### H IVCMB, PHEP #### [address] [address] [employer] Production: Dom Fowler MD #### CP #### [facility] [address] [place] [address] Dr. [place], [place] [phone] [employer] Production: Shakeel Graham MD GFR,non Amer >60 Normal >60 [facility] Comment on above: Performed By: #### H IVCMB, PHEP #### [address] [address] [employer] Production: Dom Fowler MD #### CP #### [facility] [address] [place], [place] [phone] [employer] Production: Shakeel Graham MD Glucose [Mass/Vol] 91 mg/dL Normal 70-99 [facility] Comment on above: Performed By: #### H IVCMB, PHEP #### [address] [address] [employer] Production: Dom Fowler MD #### CP #### [facility] [address] [place] [address] Dr. [place], [place] [phone] [employer] Production: Shakeel Graham MD Potassium [Moles/Vol] 4.3 mmol/L Normal 3.7-5.3 [facility] Comment on above: Performed By: #### H IVCMB, PHEP #### [address] [address] [employer] Production: Dom Fowler MD #### CP #### [address] [place], [place] [phone] [employer] Production: Shakeel Graham MD Protein [Mass/Vol] 7.4 g/dL Normal 6.4-8.3 [facility] Comment on above: Performed By: #### H IVCMB, PHEP #### [address] [address] [employer] Production: Dom Fowler MD #### CP #### [address] [place], [place] 240[address] [employer] Production: Shakeel Graham MD Sodium [Moles/Vol] 138 mmol/L Normal 135-144 [facility] Comment on above: Performed By: #### H IVCMB, PHEP #### [address] [address] [employer] Production: Dom Fowler MD #### CP #### [address] [place], [place] 0[address] [employer] Production: Shakeel Graham MD Staging: Normal [facility] Comment on above: Result Comment: Stag e 1: Some kidney damage normal GFR Stage 2: Mild kidney damage GFR 60-89 Stage 3: Moderate kidney damage GFR 30-59 Stage 4: Severe kidney damage GFR 15-29 Stage 5: Severe kidney damage GFR <15 ESRD - chronic treatment by dialysis or transplant Performed By: #### H IVCMB, PHEP #### [address] [id number] [employer] Production: Dom Fowler MD #### CP #### [facility] [address] [place] [address] [employer] Production: Shakeel Graham MD Urea nitrogen [Mass/Vol] 18 mg/dL Normal 6-20 [facility] Comment on above: Performed By: #### H IVC, PHEP #### [facility] [address] [place], [place] [id number] [employer] Production: Dom Fowler MD #### CP #### [facility] [address] [place] [address] [employer] Production: Shakeel Graham MD [facility] Metabolic Pane [facility] 05-09-2019 Albumin [Mass/Vol] 4.3 g/dL 3.5 - 5.2 g/dL [place], [place] Albumin/Globulin [Mass ratio] 1.4 {ratio} [place] ALP [Catalytic activity/Vol] 50 U/L 35 - 104 U/L [place] ALT [Catalytic activity/Vol] 9 U/L 5 - 33 U/L [place] Anion gap [Moles/Vol] 8 mmol/L Low 9 - 17 mmol/L [place] AST [Catalytic activity/Vol] 15 U/L <32 [place] Bilirubin Ql (U) 0.31 mg/dL 0.3 - 1.2 mg/dL [place], [place] Bun/Cre Ratio 20 [place], [place] Calcium [Mass/Vol] 9.4 mg/dL 8.6 - 10. 4 mg/dL [place] Chloride [Moles/Vol] 102 mmol/L 98 - 107 mmol/L [place] CO2 [Moles/Vol] 28 mmol/L 20 - 31 mmol/L [place] Creatinine [Mass/Vol] 0.92 mg/dL High 0.5 - 0.9 mg/dL [place] GFR >60 >60 mL/min [place] GFR Non- >60 >60 mL/min [place] Glucose [Mass/Vol] 91 mg/dL 70 - 99 mg/dL [place] Interpretation and review of laboratory results Abnormal [place] Potassium [Moles/Vol] 4.3 mmol/L 3.7 - 5.3 mmol/L [place] Protein [Mass/Vol] 7.4 g/dL 6.4 - 8.3 g/dL [place] Sodium [Moles/Vol] 138 mmol/L 135 - 144 mmol/L [place] Urea nitrogen [Mass/Vol] 18 mg/dL 6 - 20 mg/dL [place] Hepatitis Panel, Acuteon HAV IgM IA Qn (S) NONREACTIVE NONREACTIVE [place] Hep B Core Ab, IgM NONREACTIVE NONREACTIVE [place] Hepatitis B Surface Ag NONREACTIVE NONREACTIVE [place] Hepatitis C Ab REACTIVE Abnormal NONREACTIVE [place] Comment on above: The hepatitis C [...] Interpretation and review of laboratory results Abnormal [place] Metabolic Panelon 05-09-2019 GFR/1.73 sq M predicted among non-blacks MDRD (S/P/Bld) [Vol rate/Area] [place] Comment on above: Average GFR for 20-2 9 years old: 116 mL/min/1.73sq m Chronic Kidney Disease: <60 mL/min/1.73sq m Kidney failure: <15 mL/min/1.73sq m eGFR calculated using average adult body mass. Additional eGFR calculator available at: http://www.[employer]/multiple_crcl_2012.htm Stage 1: Some kidney damage normal GFR Stage 2: Mild kidney damage GFR 60-89 Stage 3: Moderate kidney damage GFR 30-59 Stage 4: Severe kidney damage GFR 15-29 Stage 5: Severe kidney damage GFR <15 ESRD - chronic treatment by dialysis or transplant Drug Scr, Abuse, Uron 2017 Amphetamine(s),Ur Positive Abnormal NEG [facility] Comment on above: Result Comment: (Pos itive cutoff 1000 ng/mL) Performed By: #### D AU ####[address] [address] Barbiturate(s),Ur Negative Normal NEG [facility] Comment on above: Result Comment: (Pos itive cutoff 200 ng/mL) Performed By: #### D AU ####[address] [address] Base excess Negative Normal NEG [facility] Comment on above: Result Comment: (Pos itive cutoff 300 ng/mL) Performed By: #### D AU ####[address] [address] Benzodiazepine(s) Negative Normal NEG [facility] Comment on above: Result Comment: (Pos itive cutoff 200 ng/mL) Performed By: #### D AU ####[address] [address] Cannabinoid(s),Ur Negative Normal NEG [facility] Comment on above: Result Comment: (Pos itive cutoff 50 ng/mL) Performed By: #### D AU ####[address] [address] Interpretive Info Assay provides medical screening only. The absence of expected drug(s) and/or Normal [facility] Comment on above: Result Comment: meta bolite(s) may indicate diluted or adulterated urine, limitations of testing or timing of collection.Testing for legal purposes should be confirmed by another method. To request confirmation of test result, please call the lab within 7 days of sample submission.Performed at [address] [address] Performed By: #### D AU ####[address] [address] Opiate(s), Ur Negative Normal NEG [facility] Comment on above: Result Comment: (Pos itive cutoff 300 ng/mL) Performed By: #### D AU ####[address] [address] Oxycodone, Urine Negative Normal NEG [facility] Comment on above: Result Comment: (Pos itive cutoff 100 ng/mL) Performed By: #### D AU ####[address] [address] Phencyclidine, Ur Negative Normal NEG [facility] Comment on above: Result Comment: (Pos itive cutoff 25 ng/mL) Performed By: #### D AU ####[address] [address] Urine, methadone presence Negative Normal NEG [facility] Comment on above: Result Comment: (Pos itive cutoff 300 ng/mL) Performed By: #### D AU ####[address] [address] Buprenorphrine, Ur NOT REPORTED Normal NEG [facility] Comment on above: Performed By: #### D AU ####[address] [place] [address] MDMA, Urine NOT REPORTED Normal NEG [facility] Comment on above: Performed By: #### D AU ####[address] [place] [address] Methamphetamine, Ur NOT REPORTED Normal NEG [facility] Comment on above: Performed By: #### D AU ####[address] [address] Propoxyphene,Urine NOT REPORTED Normal NEG [facility] Comment on above: Performed By: #### D AU ####[facility] [place] [address] Urine, tricyclic antidepressants NOT REPORTED Normal NEG [facility] Comment on above: Performed By: #### D AU ####[address] [address] Lipid Profileon 11-05-2017 Cholesterol 137 mg/dL Normal <200 [facility] Comment on above: Result Comment: Chol esterol Guidelines: <200 Desirable 200-240 Borderline >240 Undesirable Performed By: #### L IPR ####[address] [address] Cholesterol to HDL Ratio 4.3 {ratio} Normal <5 [facility] Comment on above: Performed By: #### L IPR ####[facility] [place] [address] HDL Cholesterol 32 mg/dL Low >40 [facility] Comment on above: Result Comment: HDL Guidelines: <40 Undesirable 40-59 Borderline >59 Desirable Performed By: #### L IPR ####[address] [address] LDL Cholesterol 82 mg/dL Normal 0-130 [facility] Comment on above: Result Comment: LDL Guidelines: <100 Desirable 100-129 Near to/above Desirable 130-159 Borderline >159 UndesirableDirect (measured) LDL and calculated LDL are not interchangeable tests. Performed By: #### L IPR ####[address] [address] Triglyceride 113 mg/dL Normal <150 [facility] Comment on above: Result Comment: Trig lyceride Guidelines: <150 Desirable 150- 199 Borderline 200-499 High >499 Very high Based on AHA Guidelines for fasting triglyceride, June 2012.Performed at [facility] [address] [place] [address] Performed By: #### L IPR ####[facility] [place] [address] Cholesterol in VLDL mass conc NOT REPORTED Normal 10-16 [facility] Comment on above: Performed By: #### L IPR ####[facility] [place] [address] Encounters Encounter Date Encounter Type Care Provider Facility Start: 09-05-2023 End: 09-05-2023 ambulatory LUIS FELIPE HALL Not Available Start: 08-21-2023 End: 08-21-2023 ambulatory YOUSIF APARICIO Not Available Start: 08-01-2023 End: 08-01-2023 ambulatory LUIS FELIPE HALL Not Available Start: 12-21-2022 End: 12-21-2022 ambulatory IVAN CAMEJO . Facility:[facility] Start: 11-29-2022 End: 11-29-[address] RODO MENCHACA Facility:[facility] Start: 10-25-2022 [facility] Facility:[facility] Start: 10-11-2022 End: 10-11-[address] CHRISTINE SÁNCHEZ Facility:[facility] Start: 09-12-2022 End: 09-13-[address] YOUSIF APARICIO . Facility:[facility] Start: 08-19-2022 Encounter for preprocedural laboratory examination DR YOUSIF APARICIO . [facility] Start: 08-18-2022 End: 08-18-[address] YOUSIF APARICIO . Facility:[facility] Start: 08-16-2022 End: 08-17-[address] YOUSIF APARICIO . Facility:[facility] Start: 08-16-2022 End: 08-17-2022 Encounter for preprocedural laboratory examination DR YOUSIF APARICIO . Facility:[facility] Start: 08-14-2022 End: 08-15-2022 [facility] Facility:[facility] Start: 07-27-2022 End: 07-28-[address] YOUSIF APARICIO . Facility:[facility] Start: 07-09-2022 End: 07-09-[address] ELISEO HARDING Facility: Start: 12-12-2021 Telephone encounter King zee MD Work Phone: Hematology/Oncology Comment on above: Lab Orders Start: 10-28-2021 Chart abstracting King fleming MD Work Phone: Hematology/Oncology Start: 04-26-2020 End: 04-27-2020 Patient encounter procedure ANTHONY PABON [facility] Start: 04-26-2020 End: 04-26-2020 Subsequent hospital visit by physician Rochelle ALFRED [facility] Start: 03-16-2020 End: 03-17-2020 Emergency department patient visit [facility] Facility:[facility] Start: 11-20-2019 End: 11-21-2019 Patient encounter procedure [facility] Start: 11-20-2019 End: 11-20-2019 Subsequent hospital visit by physician Rochelle ALFRED Laboratory Comment on above: History of miscarria ge, currently ; Amenorrhea; Positive urine test; Encounter for supervision of normal in first trimester, unspecified ; Spotting in early Start: 06-19-2019 End: 06-20-2019 Patient encounter procedure [facility] Start: 06-19-2019 End: 06-19-2019 Subsequent hospital visit by physician Rochelle ALFRED Laboratory Comment on above: Amenorrhea; Positive urine test; Encounter for supervision of normal in first trimester, unspecified ; Spotting in early Start: 05-09-2019 End: 05-10-2019 Patient encounter procedure KADI DIXON [facility] Start: 05-09-2019 End: 05-09-2019 Subsequent hospital visit by physician Rochelle ALFRED Laboratory Start: 11-05-2017 End: 11-07-2017 Evaluation and management of inpatient ANGELO SPICER [facility] Procedures Date Procedure Procedure Detail Performing Clinician Start: 04-26-2020 Acute hepatitis panel D AWN DESTINY Start: 04-26-2020 Antibody hiv-1&hiv-2 single result KADI DESTINY Start: 04-26-2020 Blood count complete automated KADI DESTINY Start: 04-26-2020 Comprehensive metabo lic panel KADI DESTINY Start: 04-26-2020 Gonadotropin chorion ic qualitative KADI DESTINY Start: 04-26-2020 Iadna hepatitis c qu ant & reverse maintenance custodian KADI DESTINY Start: 04-26-2020 Acute hepatitis panel [...] SPICER Start: 11-05-2017 Lipid panel ANGELO BARRIOS FOAM RUBBER CURER Start: 11-05-2017 DIET GENERAL ANGELO FOAM RUBBER CURER Start: 11-05-2017 FULL CODE ANGELO FOAM RUBBER CURER Start: 11-05-2017 IP CONSULT TO HISTOR Y [...] deficiency anemia type Expected: 12/12/2021, Expires: 02/11/[address] [facility] Work Phone: Comment on above: Expected: 12/12/2021 , Expires: 02/11/2022 Start: 05-18-2021 Influenza vaccination INFLUENZA (#1) [facility] Start: 06-26-2020 Cervical cancer screen [facility]ervical can[facility] [place] Comment on above: Postponed from 01/11 (Not Indicated) Start: 06-26-2020 Screening for malign ant neoplasm of cervix Cervical cancer [place] Comment on above: Postponed from 01/11 (Not Indicated) Start: 05-18-2020 Influenza vaccination Flu vaccine (# 1) [place] Start: 11-21-2019 End: 11-21-2019 Ancillary Procedure 11/21/2019 Ancillary Procedure Obstetrics and Gynecology [facility] Start: 06-26-2019 End: 06-26-2019 Routine 06/26/2019 Routine Obstetrics and Gynecology Georgette Leung APRN - [facility]RI[facility] [address] [place] [address] [phone] [facility] 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 Start: 05-18-2019 Influenza vaccination Flu vaccine (# 1) [place] Start: 2015 Cervical cancer screen Cervical canc er screen [place] Start: 2015 PAP TESTING PAP TESTING [facility] Start: 2013 DTaP/Tdap/Td vaccine (1 - Tdap) DTaP/Tdap/Td vaccine (1 - Tdap) [place] Start: 2013 Urine microalbumin profile DTAP,TDAP,TD (1 - Tdap) [facility] Start: 01-12-2012 HEPATITIS C SCREENING HEPATITIS C SC REENING [facility] Start: 01-12-2012 HIV SCREENING HIV SCREENING [facility] Start: 2009 HPV vaccine (1 - Fem larissa 3-dose series) HPV vaccine (1 - Female 3-dose series) [place] Start: 2007 Varicella Vaccine (1 of 2 - 13+ 2-dose series) Varicella Vaccine (1 of 2 - 13+ 2-dose series) [place] Start: 2006 Adult depression screening assessment DEPRESSION SCREENING [facility] Start: 2005 DTaP/Tdap/Td vaccine (1 - Tdap) DTaP/Tdap/Td vaccine (1 - Tdap) [place] Start: 2005 HPV vaccine (1 - 2-d ose series) HPV vaccine (1 - 2-dose series) [place] Start: 2005 HPV vaccine (1 - Fem larissa 2-dose series) HPV vaccine (1 - Female 2-dose series) [place] Start: 01-12-2000 Pneumococcal 0-64 ye ars Vaccine (1 of 1 - PPSV23) Pneumococcal 0-64 years Vaccine (1 of 1 - PPSV23) [place] Start: 1999 COVID-19 VACCINE (1) COVID-19 VACCIN E (1) [facility] Start: 1995 Varicella vaccine (1 of 2 - 2-dose childhood series) Varicella vaccine (1 of 2 - 2-dose childhood series) [place] End: 11-20-2019 Bacteria identified Cx Nom (U) Urine Culture Microbiology Routine Amenorrhea Positive urine test Encounter for supervision of normal in first trimester, unspecified 1 Occurrences starting 11/20/2019 until 11/20/2019 [place] Comment on above: 1 Occurrences starti ng 11/20/2019 until 11/20/2019 Bacteria identified Cx Nom (U) [place] End: 06-19-2019 Bacteria identified Cx Nom (U) Urine Culture Microbiology Routine Amenorrhea Positive urine test Encounter for supervision of normal in first trimester, unspecified 1 Occurrences starting 06/19/2019 until 06/19/2019 [place] Comment on above: 1 Occurrences starti ng 06/19/2019 until 06/19/2019 End: 11-20-2019 C.trachomatis N.gonorrhoeae DNA, Urine C.trachomatis N.gonorrhoeae DNA, Urine Microbiology Routine Amenorrhea Positive urine test Encounter for supervision of normal in first trimester, unspecified 1 Occurrences starting 11/20/2019 until 11/20/2019 [place], [place] Comment on above: 1 Occurrences starti ng 11/20/2019 until 11/20/2019 C.trachomatis N.gonorrhoeae DNA, Urine [place] End: 06-19-2019 C.trachomatis N.gonorrhoeae DNA, Urine C.trachomatis N.gonorrhoeae DNA, Urine Microbiology Routine Amenorrhea Positive urine test Encounter for supervision of normal in first trimester, unspecified 1 Occurrences starting 06/19/2019 until 06/19/2019 [place] Comment on above: 1 Occurrences starti ng 06/19/2019 until 06/19/2019 End: 04-26-2020 Hepatitis C RNA, quantitative, PCR Hepatitis C RNA, quantitative, PCR Lab Routine Once for 1 Occurrences starting 04/26/2020 until 04/26/2020 [place] Comment on above: Once for 1 Occurrenc es starting 04/26/2020 until 04/26/2020 Hepatitis C RNA, quantitative, PCR Hepatitis C RNA, quantitative, PCR Lab Routine 04/26/2020 7:30 AM EDT [place] End: 05-09-2019 HIV Screen HIV Screen Lab Routine Once for 1 Occurrences starting 05/09/2019 until 05/09/2019 [place] Comment on above: Once for 1 Occurrenc es starting 05/09/2019 until 05/09/2019 HIV Screen HIV Screen Lab R outine 05/09[facility]2019 2[facility]53 [facility] Routine Amenorrhea Positive urine test Encounter for supervision of normal in first trimester, unspecified 11/20/2019 12:26 PM EST [facility] Payers Date Payer Category Payer Medicaid [employer] [employer] [id number] 2020-Present [phone] [place], [place] [id number] Medicaid [id number] 2020 Unknown 2016 Unknown [facility] xxxxxxxxxxxx 2016-Present [phone] [address] [place] [id number] xxxxxxxxxxxx [id number] 1994 Unknown [id number] 2.840.1.527055.3.579.2.196 1994 Unknown [id number] 2.16.840.1.786008.3.579.2.173 1994 Unknown [id number] 2.16.840.1.738935.3.579.2.173 1994 Unknown [id number] 2.16.840.1.876780.3.579.2.173 1994 Unknown [id number] 2.16.840.1.361382.3.579.2.173 1994 Unknown [id number] 2.16.840.1.805165.3.579.2.593 1994 Unknown [id number] 2.16840.1.339609.3.579.2.593 1994 Unknown [id number] 2.16.840.1.520411.3.579.2.593 1994 Unknown [id number] 2.16.840.1.084377.3.579.2.593 1994 Unknown [id number] 2.16.840.1.250060.3.579.2.593 1994 Unknown [id number] 2.16.840.1.492259.3.579.2.593 1994 Unknown [id number] 2.16.840.1.000059.3.579.2.593 1994 Unknown [id number] 2.16.840.1.864919.3.579.2.593 1994 Unknown [id number] 2.16.840.1.406749.3.579.2.593 1994 Unknown [id number] 2.16.840.1.329996.3.579.2.593 1994 Unknown [id number] 2.16.840.1.675252.3.579.2.125 9 1994 Unknown [id number] 2.16.840.1.318321.3.579.2.125 9 1994 Unknown [id number] 2.16.840.1.442162.3.579.2.125 9 1959 Unknown [id number] Social History Date Type Detail Facility Start: 11-05-2017 End: 10-28-2021 Tobacco smoking status NHIS Never smoker [facility] Start: 11-05-2017 End: 06-19-2019 Alcohol intake No [place], [place] Start: 1995 Sex Assigned At Not on file [place] Start: 06-19-2019 End: 11-20-2019 Tobacco smoking status NHIS Current every day smoker [place] Start: 06-19-2019 End: 11-20-2019 Cigarettes smoked current (pack per day) - Reported [facility] Start: 11-20-2019 Alcohol intake Current non-dr data sme of alcohol (finding) [facility] Start: 05-01-2019 [facility] Start: 11-20-2019 End: 10-28-2021 Tobacco use and exposure Never used [facility] Start: 10-28-2021 End: 11-08-2021 Alcohol intake Ex-drinker (finding) [facility] Clinical Note 08-18-2022 Note Date & Type Note Facility 08-18-2022 Note OPERATIVE NOTE OPERATION DATE: 08/18/2022 PROCEDURE: Suction D AND C. PREOPERATIVE DIAGNOSIS: Missed . POSTOPERATIVE DIAGNOSIS: Missed . ANESTHESIA: General. SURGEON: Yousif Aparicio D.O. ENVIRONMENTAL LAW PROFESSOR: None. BLOOD LOSS: 75 mL. URINE OUTPUT: [...] products of conception were removed using a 10-[place] suction curette. Excellent hemostasis was noted. The patient tolerated the procedure well. Sponge, lap, and needle counts were correct x 2. All instruments were then removed from the patient's vagina. The patient was taken to the Recovery Room in stable condition. ?? [facility] Note 12-12-2021 Telephone Encounter - Angelia Almazan - 12/12/2021 11:16 AM EDT Note Date & Type Note Facility 12-12-2021 Miscellaneous Notes Pleases sign pending new cbc order. Thanks, Angelia Almazan MA documented in this encounter [facility] Progress note 11-08-2021 Note Date & Type Note Facility 11-08-2021 Note HNO ID: [id number] Author: King Suazo MD Service: ? Author [...] shortness of breath, and is seen at [facility]. Labs revealed a hemoglobin of [...] biceps/brachioradial/patella/achilles. MUSCULOSKELETAL: Neg (more content not included)... 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 Advance Directives and Living Will Power of Copy Camera Operator Latest Code Status on File Code Status [...] section and content) DATE CREATED AUTHOR 03/08/2018 [facility] DATE CREATED AUTHOR AUTHOR'S ORGANIZ ATION 04/08/2020 [facility] DATE CREATED AUTHOR AUTHOR'S ORGANIZ ATION 04/28/2020 [facility] DATE CREATED AUTHOR AUTHOR'S ORGANIZ ATION 12/13/2021 [facility] DATE CREATED AUTHOR AUTHOR'S ORGANIZ ATION 12/25/2022 [facility] DATE CREATED AUTHOR AUTHOR'S ORGANIZ ATION 09/07/2023 [facility] EPIC Source Comments (unrecognize d section and content) In the event this informatio n is protected by the Federal Confidentiality of Alcohol and Drug Abuse Patient Records regulations: The Federal rules restrict any use of the information to criminally investigate or prosecute any alcohol or drug abuse patient.[facility] the event this information is protected by the Federal Confidentiality of Alcohol and Drug Abuse Patient Records regulations: The Federal rules restrict any use of the information to criminally investigate or prosecute any alcohol or drug abuse patient.[facility] Reason for Visit (unrecogniz ed section and content) Reason Comments Lab Orders Care Teams (unrecognized sec tion and content) Glass Breaker Relationship Specialty Start Date End Date Rodo Menchaca [address] [place] [address] PCP - General Family Practice 11/08/21 FOR [...] BE BASED ON THE PRIMARY CLINICAL RECORDS. [employer] [facility]. provides no warranty or guarantee of the accuracy or completeness of information in this document.
--- NOTE | 2023-09-21 17:11 | US_ITS ---
[address] [address] Patient Name: NOE ERVIN MRN: [id number]:[id number] date: 1995 Sex: F Assigned Patient Location: [facility] Current Patient Location: Accession/Order Number: [id number] Exam Date: 09/21/2023 17:15 Report Date: 09/24/2023 07:10 At the request of: LUIS FELIPE HALL Procedure: US OB BPP w non-stress EXAMINATION: US OB BPP w non-stress HISTORY: Oligohydramnios in third trimester COMPARISON: No relevant comparison available. TECHNIQUE: Ultrasound biophysical profile was performed in the radiology department. non-reactive stress testing was performed by nursing staff in the birthing center. FINDINGS: BREATHING MOVEMENTS: 2.0 GROSS BODY MOVEMENTS: 2.0 TONE: 2.0 QUALITATIVE AMNIOTIC FLUID VOLUME: 2.0 PRESENTATION: CEPHALIC HEART RATE: 150.8 bpm H.B./min AMNIOTIC FLUID VOLUME: 10.1 cm cm GESTATIONAL AGE: 32 weeks 5 days CONCLUSION: Total biophysical profile score: 8.0 Electronically authenticated by: DILLON BAUGH Date: 09/24/2023 07:10
[2023-09-21 17:31] VITALS: BP 112/53; PULSE 96
--- OUTSIDE RECORDS SUMMARY | 2023-09-28 07:10 | XMS_ITS | CCD ---
Author Name Unknown Address [id number] [place] [address] Organization [facility] Care Team Providers Care Inspector Precision Name Role Phone ANGELO SPICER Unavailable Unavailable LIGIA SPICEREEP Unavailable Unavailable ROCHELLE WILLAMS Unavailable Unavailable Rochelle Willams Primary Care Provider [phone] [facility] Attending Unavailab le Rochelle Willams [...] Unavailable NADERER, DR RODO Dickerson Admitting Unavailable [facility] Primary Care Unavaila ble GRECHNY ., ADELITA ORELLANA Consulting Unavailluis CAMARILLO, MYLES Alex Consulting Unavailable GAYE, GURU Consulting Unavailable ALFREDDOYOSEPH, ALIX Consulting Unavailable LINA, KAMILLA Consulting Unavailable SISTER, DANIELA Consulting Unavailable ROBBY ., DR MENENDEZ Consulting Unavailable [facility] Primary Care Unavaila ble ROBBY ., DR MENENDEZ Attending Unavailable ROBBY ., DR MENENDEZ Admitting Unavailable ELENITA, NGOC Consulting Unavailable GEMBUS, AUGUSTUS Consulting Unavailable [facility] Primary Care Unavaila ble ROBBY ., DR MENENDEZ Consulting Unavailable ROBBY ., DR MENENDEZ Attending Unavailable ROBBY ., DR MENENDEZ Admitting Unavailable ZIEBER, DR CHRISTINE Benites Consulting Unavailable ROBBY ., DR MENENDEZ Consulting Unavailable [facility] Primary Care Unavaila ble ROBBY ., [...] adverse reactions to drug (disorder) [facility] Repository Medications Current Medications Medication Drug [...] 11-05-2017 Other aftercare (1 source) 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 Hemanth Kerr CBC AUTO DIFFon 11-29-2022 BASO # 0.0 103/ul Normal 0.0-0.1 [facility] Comment on above: Performed By: #### C BC #### [facility] [address] [address] [address] Hemanth Kerr Basophils/100 WBC (Bld) 0.7 % Normal 0.2-2.0 [facility] Comment on above: Performed By: #### C BC #### [facility] [address] [address] [address] Hemanth Kerr EO # 0.2 103/ul Normal 0.0-0.7 [facility] Comment on above: Performed By: #### C BC #### [facility] [address] [address] [address] Hemanth Kerr Eosinophils/100 WBC (Bld) 3.3 % Normal 0.9-7.0 [facility] Comment on above: Performed By: #### C BC #### [facility] [address] [place] [address] Dr. Hemanth Kerr Erythrocyte distribution width (RBC) [Ratio] 14.3 % Normal 11.0-15.0 [facility] Comment on above: Performed By: #### C BC #### [facility] [address] [place] [address] Dr. Hemanth Kerr Hematocrit (Bld) [Volume fraction] 37.2 % Normal 36.0-48.0 [facility] Comment on above: Performed By: #### C BC #### [facility] [address] [place] [address] Dr. Hemanth Kerr Hemoglobin (Bld) [Mass/Vol] 11.9 g/dL Critically low 12.0-16.0 [facility] Comment on above: Performed By: #### C BC #### [facility] [address] [place] [address] Dr. Hemanth Kerr IG # 0.01 10e3/ul Normal 0.00-0.03 [facility] Comment on above: Performed By: #### C BC #### [facility] [address] [address] [address] Hemanth Kerr IG % 0.2 % Normal 0.0-0.5 [facility] Comment on above: Performed By: #### C BC #### [facility] [address] [place] [address] Dr. Hemanth Kerr LYMPH # 1.7 103/ul Normal 1.2-3.8 [facility] Comment on above: Performed By: #### C BC #### [facility] [address] [place] [address] Dr. Hemanth Kerr Lymphocytes/100 WBC (Bld) 31.3 % Normal 20.5-60.0 [facility] Comment on above: Performed By: #### C BC #### [facility] [address] [place] [address] Dr. Hemanth Kerr MANUAL DIFF REQ NO Normal [facility] Comment on above: Performed By: #### C BC #### [facility] [address] [place] [address] Dr. Hemanth Kerr MCH (RBC) [Entitic mass] 27.8 pg Normal 26.7-34.0 [facility] Comment on above: Performed By: #### C BC #### [facility] [address] [place] [address] Dr. Hemanth Kerr MCHC (RBC) [Mass/Vol] 32.0 g/dL Normal 29.9-35.2 [facility] Comment on above: Performed By: #### C BC #### [facility] [address] [place] [address] Dr. Hemanth Kerr MCV (RBC) [Entitic vol] 86.9 fL Normal 81.0-99.0 [facility] Comment on above: Performed By: #### C BC #### [facility] [address] [place] [address] Dr. Hemanth Kerr MONO # 0.4 103/ul Normal 0.3-0.8 [facility] Comment on above: Performed By: #### C BC #### [facility] [address] [place] [address] Dr. Hemanth Kerr Monocytes/100 WBC (Bld) 8.0 % Normal 1.7-12.0 [facility] Comment on above: Performed By: #### C BC #### [facility] [address] [place] [address] Dr. Hemanth Kerr NEUT # 3.1 103/ul Normal 1.4-6.5 [facility] Comment on above: Performed By: #### C BC #### [facility] [address] [place] [address] Dr. Hemanth Kerr Neutrophils/100 WBC (Bld) 56.5 % Normal 43.0-75.0 [facility] Comment on above: Performed By: #### C BC #### [facility] [address] [place] [address] Dr. Hemanth Kerr Platelet mean volume (Bld) [Entitic vol] 10.3 fL Normal 9.5-13.5 [facility] Comment on above: Performed By: #### C BC #### [facility] [address] [place] [address] Dr. Hemanth Kerr PLT 258 103/ul Normal 150-450 [facility] Comment on above: Performed By: #### C BC #### [facility] [address] [place] [address] Dr. Hemanth Kerr RBC 4.28 106/ul Normal 4.20-5.40 [facility] Comment on above: Performed By: #### C BC #### [facility] [address] [place] [address] Dr. Hemanth Kerr WBC 5.4 103/ul Normal 4.0-11.0 [facility] Comment on above: Performed By: #### C BC #### [facility] [address] [place] [address] Dr. Hemanth Kerr PROF 14(COMP METB)on 023 Albumin [Mass/Vol] 3.1 g/dL Critically low 3.4-5.0 [facility] Comment on above: Performed By: #### C MP #### [facility] [address] [place] [address] Dr. Hemanth Kerr Albumin/Globulin [Mass ratio] 1.3 {ratio} Normal [facility] Comment on above: Performed By: #### C MP #### [facility] [address] [address] [address] Hemanth Kerr ALP [Catalytic activity/Vol] 56 U/L Normal 46-116 [facility] Comment on above: Performed By: #### C MP #### [facility] [address] [address] [address] Hemanth Kerr ALT [Catalytic activity/Vol] 34 U/L Normal 14-59 [facility] Comment on above: Performed By: #### C MP #### [facility] [address] [place] [address] Dr. Hemanth Kerr Anion gap [Moles/Vol] 7.0 mmol/L Normal [facility] Comment on above: Performed By: #### C MP #### [facility] [address] [place] [address] Dr. Hemanth Kerr AST [Catalytic activity/Vol] 29 U/L Normal 15-37 [facility] Comment on above: Performed By: #### C MP #### [facility] [address] [place] [address] Dr. Hemanth Kerr Bilirubin [Mass/Vol] 0.4 mg/dL Normal 0.2-1.0 [facility] Comment on above: Performed By: #### C MP #### [facility] [address] [place] [address] Dr. Hemanth Kerr Calcium [Mass/Vol] 8.3 mg/dL Critically low 8.5-10.1 [facility] Comment on above: Performed By: #### C MP #### [facility] [address] [place] [address] Dr. Hemanth Kerr Chloride [Moles/Vol] 110 mmol/L Critically high 98-107 [facility] Comment on above: Performed By: #### C MP #### [facility] [address] [place] [address] Dr. Hemanth Kerr CO2 [Moles/Vol] 27.6 mmol/L Normal 21.0-32.0 [facility] Comment on above: Performed By: #### C MP #### [facility] [address] [place] [address] Dr. Hemanth Kerr Creatinine [Mass/Vol] 0.61 mg/dL Normal 0.55-1.02 [facility] Comment on above: Performed By: #### C MP #### [facility] [address] [address] [address] Hemanth Kerr EGFR-AF EAST [place] >60 Normal >=60 [facility] Comment on above: Performed By: #### C MP #### [facility] [address] [address] [address] Hemanth Kerr EGFR-NON AF EAST [place] >60 Normal >=60 [facility] Comment on above: Performed By: #### C MP #### [facility] [address] [address] [address] Hemanth Kerr Globulin (S) [Mass/Vol] 2.4 g/dL Normal [facility] Comment on above: Performed By: #### C MP #### [facility] [address] [place] [address] Dr. Hemanth Kerr Glucose [Mass/Vol] 110 mg/dL Critically high 74-106 [facility] Comment on above: Performed By: #### C MP #### [facility] [address] [address] [address] Hemanth Kerr Potassium [Moles/Vol] 2.6 mmol/L Critically low 3.5-5.1 [facility] Comment on above: Performed By: #### C MP #### [facility] [address] [place] [address] Dr. Hemanth Kerr Protein [Mass/Vol] 5.5 g/dL Critically low 6.4-8.2 [facility] Comment on above: Performed By: #### C MP #### [facility] [address] [address] [address] Hemanth Kerr Sodium [Moles/Vol] 142 mmol/L Normal 136-145 [facility] Comment on above: Performed By: #### C MP #### [facility] [address] [place] [address] Dr. Hemanth Kerr Urea nitrogen [Mass/Vol] 12.0 mg/dL Normal 7.0-18.0 [facility] Comment on above: Performed By: #### C MP #### [facility] [address] [address] [address] Hemanth Kerr Urea nitrogen/Creatinine [Mass ratio] 19.7 mg/mg Normal [facility] Comment on above: Performed By: #### C MP #### [facility] [address] [address] [address] Hemanth Kerr XR HIP LT 2 [...] GRANADOS Date: 2022-11-28 22:13 Normal [facility] ACETAMINOPHENon 11-28-2022 Acetaminophen [Mass/Vol] ug/mL Critically low 10.0-30.0 [facility] Comment on above: Performed By: #### C MP #### [facility] [address] [address] [address] Hemanth Kerr ACETONE SERUMon 11-28-2022 ACETONE Negative Normal NEGATIVE [facility] Comment on above: Performed By: #### P REG #### [facility] [address] [address] [address] Hemanth Kerr AMMONIAon 11-28-2022 Ammonia (P) [Moles/Vol] 24 umol/L Normal 11-32 [facility] Comment on above: Performed By: #### L ACT #### [facility] [address] [address] [address] Hemanth Kerr CBC AUTO DIFFon 11-28-2022 BASO # 0.0 103/ul Normal 0.0-0.1 [facility] Comment on above: Performed By: #### L ACT #### [facility] [address] [address] [address] Hemanth Kerr Basophils/100 WBC (Bld) 0.4 % Normal 0.2-2.0 [facility] Comment on above: Performed By: #### L ACT #### [facility] [address] [place] [address] Dr. Hemanth Kerr EO # 0.3 103/ul Normal 0.0-0.7 [facility] Comment on above: Performed By: #### L ACT #### [facility] [address] [place] [address] Dr. Hemanth Kerr Eosinophils/100 WBC (Bld) 3.1 % Normal 0.9-7.0 [facility] Comment on above: Performed By: #### L ACT #### [facility] [address] [place] [address] Dr. Hemanth Kerr Erythrocyte distribution width (RBC) [Ratio] 14.3 % Normal 11.0-15.0 [facility] Comment on above: Performed By: #### L ACT #### [facility] [address] [place] [address] Dr. Hemanth Kerr Hematocrit (Bld) [Volume fraction] 41.3 % Normal 36.0-48.0 [facility] Comment on above: Performed By: #### L ACT #### [facility] [address] [place] [address] Dr. Hemanth Kerr Hemoglobin (Bld) [Mass/Vol] 13.3 g/dL Normal 12.0-16.0 [facility] Comment on above: Performed By: #### L ACT #### [facility] [address] [place] [address] Dr. Hemanth Kerr IG # 0.02 10e3/ul Normal 0.00-0.03 [facility] Comment on above: Performed By: #### L ACT #### [facility] [address] [place] [address] Dr. Hemanth Kerr IG % 0.2 % Normal 0.0-0.5 [facility] Comment on above: Performed By: #### L ACT #### [facility] [address] [place] [address] Dr. Hemanth Kerr LYMPH # 2.4 103/ul Normal 1.2-3.8 [facility] Comment on above: Performed By: #### L ACT #### [facility] [address] [place] [address] Dr. Hemanth Kerr Lymphocytes/100 WBC (Bld) 26.3 % Normal 20.5-60.0 [facility] Comment on above: Performed By: #### L ACT #### [facility] [address] [place] [address] Dr. Hemanth Kerr MANUAL DIFF REQ NO Normal [facility] Comment on above: Performed By: #### L ACT #### [facility] [address] [place] [address] Dr. Hemanth Kerr MCH (RBC) [Entitic mass] 27.4 pg Normal 26.7-34.0 [facility] Comment on above: Performed By: #### L ACT #### [facility] [address] [place] [address] Dr. Hemanth Kerr MCHC (RBC) [Mass/Vol] 32.2 g/dL Normal 29.9-35.2 [facility] Comment on above: Performed By: #### L ACT #### [facility] [address] [place] [address] Dr. Hemanth Kerr MCV (RBC) [Entitic vol] 85.0 fL Normal 81.0-99.0 [facility] Comment on above: Performed By: #### L ACT #### [facility] [address] [place] [address] Dr. Hemanth Kerr MONO # 0.7 103/ul Normal 0.3-0.8 [facility] Comment on above: Performed By: #### L ACT #### [facility] [address] [place] [address] Dr. Hemanth Kerr Monocytes/100 WBC (Bld) 7.3 % Normal 1.7-12.0 [facility] Comment on above: Performed By: #### L ACT #### [facility] [address] [place] [address] Dr. Hemanth Kerr NEUT # 5.7 103/ul Normal 1.4-6.5 [facility] Comment on above: Performed By: #### L ACT #### [facility] [address] [address] [address] Hemanth Kerr Neutrophils/100 WBC (Bld) 62.7 % Normal 43.0-75.0 [facility] Comment on above: Performed By: #### L ACT #### [facility] [address] [address] [address] Hemanth Kerr Platelet mean volume (Bld) [Entitic vol] 10.6 fL Normal 9.5-13.5 [facility] Comment on above: Performed By: #### L ACT #### [facility] [address] [place] [address] Dr. Hemanth Kerr PLT 347 103/ul Normal 150-450 [facility] Comment on above: Performed By: #### L ACT #### [facility] [address] [place] [address] Dr. Hemanth Kerr RBC 4.86 106/ul Normal 4.20-5.40 [facility] Comment on above: Performed By: #### L ACT #### [facility] [address] [place] [address] Dr. Hemanth Kerr WBC 9.1 103/ul Normal 4.0-11.0 [facility] Comment on above: Performed By: #### L ACT #### [facility] [address] [place] [address] CSPINE WO CONon [...] MILLS Date: 2022-11-28 17:54 Normal [facility] CT HEAD WO CONon 11-28-2022 [...] MILLS Date: 2022-11-28 18:40 Normal [facility] CULTURE BLOODon 11-28-2022 Microscopic examination of blood, culture Culture Observations: NO GROWTH AT 5 DAYS. Normal [facility] Comment on above: Performed By: #### C BC #### [facility] [address] [address] [address] Hemanth Kerr Microscopic examination of blood, culture Culture Observations: NO GROWTH AT 5 DAYS. Normal [facility] Comment on above: Performed By: #### B LDCX1 #### [facility] [address] [place] [address] Dr. Hemanth Kerr Covid-19 PCR ([facility])on 11-15 SARS-CoV-2 (COVID-19) RNA ELMO+probe Ql (Unsp spec) Not detected Normal NOT DETECTED [facility] Comment on above: Result [...] for this test is supported by the [place] of Health and Human Service's declaration that [...] Performed By: #### L ACT #### [facility] [address] [place] [address] Dr. Hemanth Kerr DRUG SCREEN RAPID (URINE)on 11-28-2022 AMP Positive Abnormal NEGATIVE [facility] Comment on above: Performed By: #### P REG #### [facility] [address] [place] [address] Dr. Hemanth Kerr BAR Negative Normal NEGATIVE [facility] Comment on above: Performed By: #### P REG #### [facility] [address] [place] [address] Dr. Hemanth Kerr BUP Negative Normal NEGATIVE [facility] Comment on above: Performed By: #### P REG #### [facility] [address] [place] [address] Dr. Hemanth Kerr BZO Negative Normal NEGATIVE [facility] Comment on above: Performed By: #### P REG #### [facility] [address] [place] [address] Dr. Hemanth Kerr YOLANDA Negative Normal NEGATIVE [facility] Comment on above: Performed By: #### P REG #### [facility] [address] [place] [address] Dr. Hemanth Kerr CUT-OFFS SEE BELOW Normal [facility] Comment on above: Result [...] Performed By: #### P REG #### [facility] [address] [place] [address] Dr. Hemanth Kerr DRUG CUT HEADER DRUG CLASS TEST SYSTEM CUT-OFF CONCENTRATIONS ARE FOLLOWS: Normal [facility] Comment on above: Performed By: #### P REG #### [facility] [address] [place] [address] Dr. Hemanth Kerr mAMP Positive Abnormal NEGATIVE [facility] Comment on above: Performed By: #### P REG #### [facility] [address] [place] [address] Dr. Hemanth Kerr MTD Negative Normal NEGATIVE [facility] Comment on above: Performed By: #### P REG #### [facility] [address] [place] [address] Dr. Hemanth Kerr OPI Negative Normal NEGATIVE [facility] Comment on above: Performed By: #### P REG #### [facility] [address] [place] [address] Dr. Hemanth Kerr OXY Negative Normal NEGATIVE [facility] Comment on above: Performed By: #### P REG #### [facility] [address] [place] [address] Dr. Hemanth Kerr PCP Negative Normal NEGATIVE [facility] Comment on above: Performed By: #### P REG #### [facility] [address] [place] [address] Dr. Hemanth Kerr PPX Negative Normal NEGATIVE [facility] Comment on above: Performed By: #### P REG #### [facility] [address] [address] [address] Hemanth Kerr TCA Negative Normal NEGATIVE [facility] Comment on above: Performed By: #### P REG #### [facility] [address] [place] [address] Dr. Hemanth Kerr THC Negative Normal NEGATIVE [facility] Comment on above: Performed By: #### P REG #### [facility] [address] [place] [address] Dr. Hemanth Kerr ER URINE PROFILEon 3 Bilirubin Ql (U) Negative Normal NEGATIVE [facility] Comment on above: Performed By: #### P REG #### [facility] [address] [place] [address] Dr. Hemanth Kerr Clarity (U) CLEAR Normal CLEAR [facility] Comment on above: Performed By: #### P REG #### [facility] [address] [place] [address] Dr. Hemanth Kerr Color (U) LT. YELLOW Normal YELLOW [facility] Comment on above: Performed By: #### P REG #### [facility] [address] [place] [address] Dr. Hemanth Kerr ERUAbi A micrscopic examination will be performed if indicated. Normal [facility] Comment on above: Performed By: #### P REG #### [facility] [address] [place] [address] Dr. Hemanth Kerr Glucose Ql (U) Negative Normal NEGATIVE [facility] Comment on above: Performed By: #### P REG #### [facility] [address] [place] [address] Dr. Hemanth Kerr Hemoglobin Ql (U) Negative Normal NEGATIVE [facility] Comment on above: Performed By: #### P REG #### [facility] [address] [place] [address] Dr. Hemanth Kerr Ketones Ql (U) Negative Normal NEGATIVE [facility] Comment on above: Performed By: #### P REG #### [facility] [address] [place] [address] Dr. Hemanth Kerr LEUKOCYTES Negative Normal NEGATIVE [facility] Comment on above: Performed By: #### P REG #### [facility] [address] [place] [address] Dr. Hemanth Kerr Nitrite Ql (U) Positive Abnormal NEGATIVE [facility] Comment on above: Performed By: #### P REG #### [facility] [address] [place] [address] Dr. Hemanth Kerr pH (U) 7.5 [pH] Normal 5-9 [facility] Comment on above: Performed By: #### P REG #### [facility] [address] [place] [address] Dr. Hemanth Kerr SPEC GRAVITY 1.020 Normal 1.005-<=1.[address] [facility] Comment on above: Performed By: #### P REG #### [facility] [address] [place] [address] Dr. Hemanth Kerr UA PROTEIN TRACE Normal NEGATIVE/ TRACE [facility] Comment on above: Performed By: #### P REG #### [facility] [address] [place] [address] Dr. Hemanth Kerr UR MICRO IND INDICATED Normal [facility] Comment on above: Performed By: #### P REG #### [facility] [address] [place] [address] Dr. Hemanth Kerr Urobilinogen Qn (U) 1.0 {Jose'U}/dL Normal 0.2 - 1. 0 [facility] Comment on above: Performed By: #### P REG #### [facility] Laboratory [address] [place] [address] Dr. Hemanth Kerr ETHANOL (BLD ALC)on 11-29-19 23 ALC NOTE NOTE: 80 mg/dl is th e legal limit for a blood alcohol level Normal [facility] Comment on above: Performed By: #### C MP #### [facility] [address] [place] [address] Dr. Hemanth Kerr Ethanol [Mass/Vol] mg/dL Normal [facility] Comment on above: Performed By: #### C MP #### [facility] [address] [place] [address] Dr. Hemanth Kerr LACTATE/LACTIC ACIDon 2022 Lactate [Moles/Vol] 0.7 mmol/L Normal 0.4-2.0 [facility] Comment on above: Performed By: #### L ACT #### [facility] [address] [address] [address] Hemanth Kerr Lactate [Moles/Vol] 9.0 mmol/L Critically high 0.4-2.0 [facility] Comment on above: Performed By: #### L ACT #### [facility] [address] [address] [address] Hemanth Kerr PH VENOUS BLOODon 11-28-2022 PCO2 VENOUS 36.6 mmHg Critically low 40.0-52.0 [facility] Comment on above: Performed By: #### P HVEN #### [facility] [address] [place] [address] Dr. Hemanth Kerr pH VENOUS 7.354 Normal 7.330-7.430 [facility] Comment on above: Performed By: #### P HVEN #### [facility] [address] [place] [address] Dr. Hemanth Kerr POINT OF CARE GLUCOSEon 11-15 Glucose [Mass/Vol] 127 mg/dL Critically high 74-106 [facility] Comment on above: Performed By: #### C BC #### [facility] [address] [place] [address] Dr. Hemanth Kerr PREG HCG QUALon 11-28-2022 , QUAL Negative Normal NEGATIVE [facility] Comment on above: Performed By: #### P REG #### [facility] [address] [place] [address] Dr. Hemanth Kerr PROF 14(COMP METB)on 023 Albumin [Mass/Vol] 3.7 g/dL Normal 3.4-5.0 [facility] Comment on above: Performed By: #### L ACT #### [facility] [address] [place] [address] Dr. Hemanth Kerr Albumin/Globulin [Mass ratio] 1.3 {ratio} Normal [facility] Comment on above: Performed By: #### L ACT #### [facility] [address] [address] [address] Hemanth Kerr ALP [Catalytic activity/Vol] 72 U/L Normal 46-116 [facility] Comment on above: Performed By: #### L ACT #### [facility] [address] [address] [address] Hemanth Kerr ALT [Catalytic activity/Vol] 42 U/L Normal 14-59 [facility] Comment on above: Performed By: #### L ACT #### [facility] [address] [address] [address] Hemanth Kerr Anion gap [Moles/Vol] 16.3 mmol/L Normal [facility] Comment on above: Performed By: #### L ACT #### [facility] [address] [place] [address] Dr. Hemanth Kerr AST [Catalytic activity/Vol] 45 U/L Critically high 15-37 [facility] Comment on above: Performed By: #### L ACT #### [facility] [address] [place] [address] Dr. Hemanth Kerr Bilirubin [Mass/Vol] 0.4 mg/dL Normal 0.2-1.0 [facility] Comment on above: Performed By: #### L ACT #### [facility] [address] [place] [address] Dr. Hemanth Kerr Calcium [Mass/Vol] 8.8 mg/dL Normal 8.5-10.1 [facility] Comment on above: Performed By: #### L ACT #### [facility] [address] [place] [address] Dr. Hemanth Kerr Chloride [Moles/Vol] 107 mmol/L Normal 98-107 [facility] Comment on above: Performed By: #### L ACT #### [facility] [address] [address] [address] Hemanth Kerr CO2 [Moles/Vol] 21.8 mmol/L Normal 21.0-32.0 [facility] Comment on above: Performed By: #### L ACT #### [facility] [address] [address] [address] Hemanth Kerr Creatinine [Mass/Vol] 1.32 mg/dL Critically high 0.55-1.02 [facility] Comment on above: Performed By: #### L ACT #### [facility] [address] [address] [address] Hemanth Kerr EGFR-AF [place] 58 mL/min/1.73m2 Critically low >=60 [facility] Comment on above: Performed By: #### L ACT #### [facility] [address] [address] [address] Hemanth Kerr EGFR-NON AF [place] 48 mL/min/1.73m2 Critically low >=60 [facility] Comment on above: Performed By: #### L ACT #### [facility] [address] [place] [address] Dr. Hemanth Kerr Globulin (S) [Mass/Vol] 2.9 g/dL Normal [facility] Comment on above: Performed By: #### L ACT #### [facility] [address] [address] [address] Hemanth Kerr Glucose [Mass/Vol] 143 mg/dL Critically high 74-106 [facility] Comment on above: Performed By: #### L ACT #### [facility] [address] [address] [address] Hemanth Kerr Potassium [Moles/Vol] 3.1 mmol/L Critically low 3.5-5.1 [facility] Comment on above: Performed By: #### L ACT #### [facility] [address] [address] [address] Hemanth Kerr Protein [Mass/Vol] 6.6 g/dL Normal 6.4-8.2 [facility] Comment on above: Performed By: #### L ACT #### [facility] [address] [address] [address] Hemanth Kerr Sodium [Moles/Vol] 142 mmol/L Normal 136-145 [facility] Comment on above: Performed By: #### L ACT #### [facility] [address] [address] [address] Hemanth Kerr Urea nitrogen [Mass/Vol] 17.0 mg/dL Normal 7.0-18.0 [facility] Comment on above: Performed By: #### L ACT #### [facility] [address] [place] [address] Dr. Hemanth Kerr Urea nitrogen/Creatinine [Mass ratio] 12.9 mg/mg Normal [facility] Comment on above: Performed By: #### L ACT #### [facility] [address] [place] [address] Dr. Hemanth Kerr PROTIMEon 11-28-2022 INR Coag (PPP) [Relative time] 0.97 {INR} Normal [facility] Comment on above: Performed By: #### P T, PTT #### [facility] [address] [place] [address] Dr. Hemanth Kerr INR GUIDELINES SEE BELOW Normal [facility] Comment on above: Result Comment: CHAN RED INR: 2.0 - 3.0 CONDITIONS NOT LISTED BELOW 2.5 - 3.5 FOR PROSTHETIC HEART VALVE REPLACEMENT 2.5 - 3.5 RECURRENT THROMBOSIS Performed By: #### P T, PTT #### [facility] [address] [place] [address] Dr. Hemanth Kerr PT Coag (PPP) [Time] 10.3 s Normal 9.0-11.6 [facility] Comment on above: Performed By: #### P T, PTT #### [facility] [address] [place] [address] Dr. Hemanth Kerr PTTon 11-28-2022 aPTT Coag (Bld) [Time] 25.4 s Normal 22.3-36.2 [facility] Comment on above: Performed By: #### P T, PTT #### [facility] [address] [place] [address] Dr. Hemanth Kerr SALICYLATEon 11-28-2022 SALICYLATE <2.8 Normal <=19.9 [facility] Comment on above: Performed By: #### C MP #### [facility] [address] [place] [address] Dr. Hemanth Kerr TROPONIN, HIGH SENSITIVITYon 11-28-2022 HSTROP 4.2 pg/mL Normal 4.0-51.3 [facility] Comment on above: Result Comment: CUT- OFF POINTS HAVE BEEN ESTABLISHED BASED ON THE FOURTH UNIVERSAL DEFINITIONS OF MYOCARDIAL INFARCTION. THE UPPER REFERENCE LIMIT (URL) OF TROPONIN, DEFINED THE 99TH PERCENTILE OF cTnI DISTRIBUTION IN A REFERENCE POPULATION, HAS BEEN CONFIRMED THE DECISION THRESHOLD FOR [place] DIAGNOSIS. Performed By: #### C MP #### [facility] [address] [place] [address] Dr. Hemanth Kerr TSHon 11-28-2022 TSH 3.476 uIU/mL Normal 0.358-3.740 The [facility] Comment on above: Performed By: #### L ACT #### [facility] [address] [place] [address] Dr. Hemanth Kerr URINE MICROSCOPIC ONLYon BACTERIA LARGE Abnormal NONE SEEN [facility] Comment on above: Performed By: #### P REG #### [facility] [address] [place] [address] Dr. Hemanth Kerr Bacteria identified Cx Nom (U) INDICATED Normal [facility] Comment on above: Performed By: #### P REG #### [facility] [address] [place] [address] Dr. Hemanth Kerr CAST SEEN Abnormal NONE SEEN [facility] Comment on above: Performed By: #### P REG #### [facility] [address] [place] [address] Dr. Hemanth Kerr COARSE GRANULAR CAST RARE Normal [facility] Comment on above: Performed By: #### P REG #### [facility] [address] [place] [address] Dr. Hemanth Kerr Crystals LM Nom (Urine sed) NONE SEEN Normal NONE SEEN [facility] Comment on above: Performed By: #### P REG #### [facility] [address] [place] [address] Dr. Hemanth Kerr Epithelial cells LM Ql (Urine sed) RARE Normal NONE SEEN /RARE [facility] Comment on above: Performed By: #### P REG #### [facility] [address] [place], [place] [id number] Dr. Hemanth Kerr MUCOUS NONE SEEN Normal NONE SEEN [facility] Comment on above: Performed By: #### P REG #### [facility] [address] [place] [address] Dr. Hemanth Kerr RBC 0-2 Normal 0-2 [facility] Comment on above: Performed By: #### P REG #### [facility] [address] [place] [address] Dr. Hemanth Kerr WBC 2-5 Abnormal NONE SEEN [facility] Comment on above: Performed By: #### P REG #### [facility] [address] [place] [address] Dr. Hemanth Kerr XR CHEST 1 Von [...] KAMILLA MILLS Date: 2022-11-28 17:39 Normal [facility] CULTURE URINEon 10-13-2022 CULTURE URINE [...] hoxazole >=320 R F Normal [facility] Comment on above: Performed By: #### U RCX #### [facility] [address] [address] [address] Hemanth Kerr CBC AUTO DIFFon 10-11-2022 BASO # 0.0 103/ul Normal 0.0-0.1 [facility] Comment on above: Performed By: #### C BC #### [facility] [address] [address] [address] Hemanth Kerr Basophils/100 WBC (Bld) 0.3 % Normal 0.2-2.0 [facility] Comment on above: Performed By: #### C BC #### [facility] [address] [address] [address] Hemanth Kerr EO # 0.0 103/ul Normal 0.0-0.7 [facility] Comment on above: Performed By: #### C BC #### [facility] [address] [place] [address] Dr. Hemanth Kerr Eosinophils/100 WBC (Bld) 0.4 % Critically low 0.9-7.0 [facility] Comment on above: Performed By: #### C BC #### [facility] [address] [place] [address] Dr. Hemanth Kerr Erythrocyte distribution width (RBC) [Ratio] 12.2 % Normal 11.0-15.0 [facility] Comment on above: Performed By: #### C BC #### [facility] [address] [place] [address] Dr. Hemanth Kerr Hematocrit (Bld) [Volume fraction] 38.6 % Normal 36.0-48.0 [facility] Comment on above: Performed By: #### C BC #### [facility] [address] [place] [address] Dr. Hemanth Kerr Hemoglobin (Bld) [Mass/Vol] 12.0 g/dL Normal 12.0-16.0 [facility] Comment on above: Performed By: #### C BC #### [facility] [address] [place] [address] Dr. Hemanth Kerr IG # 0.07 10e3/ul Critically high 0.00-0.03 [facility] Comment on above: Performed By: #### C BC #### [facility] [address] [place] [address] Dr. Hemanth Kerr IG % 0.7 % Critically high 0.0-0.5 [facility] Comment on above: Performed By: #### C BC #### [facility] [address] [place] [address] Dr. Hemanth Kerr LYMPH # 1.2 103/ul Normal 1.2-3.8 [facility] Comment on above: Performed By: #### C BC #### [facility] [address] [place] [address] Dr. Hemanth Kerr Lymphocytes/100 WBC (Bld) 12.1 % Critically low 20.5-60.0 [facility] Comment on above: Performed By: #### C BC #### [facility] [address] [place] [address] Dr. Hemanth Kerr MANUAL DIFF REQ NO Normal [facility] Comment on above: Performed By: #### C BC #### [facility] [address] [place] [address] Dr. Hemanth Kerr MCH (RBC) [Entitic mass] 28.0 pg Normal 26.7-34.0 [facility] Comment on above: Performed By: #### C BC #### [facility] [address] [place] [address] Dr. Hemanth Kerr MCHC (RBC) [Mass/Vol] 31.1 g/dL Normal 29.9-35.2 [facility] Comment on above: Performed By: #### C BC #### [facility] [address] [place] [address] Dr. Hemanth Kerr MCV (RBC) [Entitic vol] 90.2 fL Normal 81.0-99.0 [facility] Comment on above: Performed By: #### C BC #### [facility] [address] [place] [address] Dr. Hemanth Kerr MONO # 0.7 103/ul Normal 0.3-0.8 [facility] Comment on above: Performed By: #### C BC #### [facility] [address] [address] [address] Hemanth Kerr Monocytes/100 WBC (Bld) 6.9 % Normal 1.7-12.0 [facility] Comment on above: Performed By: #### C BC #### [facility] [address] [address] [address] Hemanth Kerr NEUT # 8.1 103/ul Critically high 1.4-6.[address] [facility] Comment on above: Performed By: #### C BC #### [facility] [address] [address] [address] Hemanth Kerr Neutrophils/100 WBC (Bld) 79.6 % Critically high 43.0-75.0 [facility] Comment on above: Performed By: #### C BC #### [facility] [address] [place] [address] Dr. Hemanth Kerr Platelet mean volume (Bld) [Entitic vol] 10.8 fL Normal 9.5-13.5 [facility] Comment on above: Performed By: #### C BC #### [facility] [address] [address] [address] Hemanth Kerr PLT 452 103/ul Critically high 150-[address] [facility] Comment on above: Performed By: #### C BC #### [facility] [address] [address] [address] Hemanth Kerr RBC 4.28 106/ul Normal 4.20-5.40 [facility] Comment on above: Performed By: #### C BC #### [facility] [address] [address] [address] Hemanth Kerr WBC 10.1 103/ul Normal 4.0-11.0 [facility] Comment on above: Performed By: #### C BC #### [facility] [address] [place] [address] ABD/PELVIS WO CONon [...] CHRISTINE SÁNCHEZ Date: 2022-10-11 14:45 Normal [facility] ER URINE PROFILEon 3 Bilirubin Ql (U) Negative Normal NEGATIVE [facility] Comment on above: Performed By: #### L ACT #### [facility] [address] [place] [address] Dr. Hemanth Kerr Clarity (U) CLEAR Normal CLEAR [facility] Comment on above: Performed By: #### L ACT #### [facility] [address] [address] [address] Heamnth Kerr Color (U) LT. YELLOW Normal YELLOW [facility] Comment on above: Performed By: #### L ACT #### [facility] [address] [place] [address] Dr. Hemanth Kerr ERUAHD A micrscopic examination will be performed if indicated. Normal [facility] Comment on above: Performed By: #### L ACT #### [facility] [address] [address] [address] Hemanth Kerr Glucose Ql (U) Negative Normal NEGATIVE [facility] Comment on above: Performed By: #### L ACT #### [facility] [address] [address] [address] Hemanth Kerr Hemoglobin Ql (U) LARGE Abnormal NEGATIVE [facility] Comment on above: Performed By: #### L ACT #### [facility] [address] [address] [address] Hemanth Kerr Ketones Ql (U) Negative Normal NEGATIVE [facility] Comment on above: Performed By: #### L ACT #### [facility] [address] [place] [address] Dr. Hemanth Kerr LEUKOCYTES SMALL Abnormal NEGATIVE [facility] Comment on above: Performed By: #### L ACT #### [facility] [address] [place] [address] Dr. Hemanth Kerr Nitrite Ql (U) Negative Normal NEGATIVE [facility] Comment on above: Performed By: #### L ACT #### [facility] [address] [address] [address] Hemanth Kerr pH (U) 6.5 [pH] Normal 5-9 [facility] Comment on above: Performed By: #### L ACT #### [facility] [address] [place] [address] Dr. Hemanth Kerr Protein (U) [Mass/Vol] 30 mg/dL Abnormal NEGATIVE/ TRACE [facility] Comment on above: Performed By: #### L ACT #### [facility] [address] [place] [address] Dr. Hemanth Kerr SPEC GRAVITY <=1.005 Abnormal 1.005-<=1.025 [facility] Comment on above: Performed By: #### L ACT #### [facility] [address] [place] [address] Dr. Hemanth Kerr UR MICRO IND INDICATED Normal [facility] Comment on above: Performed By: #### L ACT #### [facility] [address] [address] [address] Hemanth Kerr Urobilinogen Qn (U) 1.0 {Jose'U}/dL Normal 0.2 - 1. 0 [facility] Comment on above: Performed By: #### L ACT #### [facility] [address] [address] [address] Hemanth Kerr PREG HCG QUALon 10-11-2022 , QUAL Negative Normal NEGATIVE [facility] Comment on above: Performed By: #### P REG #### [facility] [address] [address] [address] Hemanth Kerr PROF CHEM 8 (BAS METB)on Anion gap [Moles/Vol] 9.4 mmol/L Normal [facility] Comment on above: Performed By: #### L ACT #### [facility] [address] [place] [address] Dr. Hemanth Kerr Calcium [Mass/Vol] 8.8 mg/dL Normal 8.5-10.1 [facility] Comment on above: Performed By: #### L ACT #### [facility] [address] [address] [address] Hemanth Kerr Chloride [Moles/Vol] 97 mmol/L Critically low 98-107 [facility] Comment on above: Performed By: #### L ACT #### [facility] [address] [place] [address] Dr. Hemanth Kerr CO2 [Moles/Vol] 32.4 mmol/L Critically high 21.0-32.0 [facility] Comment on above: Performed By: #### L ACT #### [facility] [address] [place] [address] Dr. Hemanth Kerr Creatinine [Mass/Vol] 0.65 mg/dL Normal 0.55-1.02 [facility] Comment on above: Performed By: #### L ACT #### [facility] [address] [place] [address] Dr. Hemanth Kerr EGFR-AF [place] >60 Normal >=60 [facility] Comment on above: Performed By: #### L ACT #### [facility] [address] [address] [address] Hemanth Kerr EGFR-NON AF [place] >60 Normal >=60 [facility] Comment on above: Performed By: #### L ACT #### [facility] [address] [place] [address] Dr. Hemanth Kerr Glucose [Mass/Vol] 117 mg/dL Critically high 74-106 [facility] Comment on above: Performed By: #### L ACT #### [facility] [address] [address] [address] Hemanth Kerr Potassium [Moles/Vol] 2.8 mmol/L Critically low 3.5-5.1 [facility] Comment on above: Performed By: #### L ACT #### [facility] [address] [place] [address] Dr. Hemanth Kerr Sodium [Moles/Vol] 135 mmol/L Critically low 136-145 [facility] Comment on above: Performed By: #### L ACT #### [facility] [address] [place] [address] Dr. Hemanth Kerr Urea nitrogen [Mass/Vol] 8.0 mg/dL Normal 7.0-18.0 [facility] Comment on above: Performed By: #### L ACT #### [facility] [address] [place] [address] Dr. Hemanth Kerr Urea nitrogen/Creatinine [Mass ratio] 12.3 mg/mg Normal [facility] Comment on above: Performed By: #### L ACT #### [facility] [address] [place] [address] Dr. Hemanth Kerr URINE MICROSCOPIC ONLYon BACTERIA SMALL Abnormal NONE SEEN [facility] Comment on above: Performed By: #### L ACT #### [facility] [address] [place], [place] [id number] Dr. Hemanth Kerr Bacteria identified Cx Nom (U) INDICATED Normal [facility] Comment on above: Performed By: #### L ACT #### [facility] [address] [place] [address] Dr. Hemanth Kerr CAST NONE SEEN Normal NONE SEEN [facility] Comment on above: Performed By: #### L ACT #### [facility] [address] [place] [address] Dr. Hemanth Kerr Crystals LM Nom (Urine sed) NONE SEEN Normal NONE SEEN [facility] Comment on above: Performed By: #### L ACT #### [facility] [address] [place] [address] Dr. Hemanth Kerr Epithelial cells LM Ql (Urine sed) FEW Abnormal NONE SEEN /RARE [facility] Comment on above: Performed By: #### L ACT #### [facility] [address] [place] [address] Dr. Hemanth Kerr MUCOUS NONE SEEN Normal NONE SEEN [facility] Comment on above: Performed By: #### L ACT #### [facility] [address] [place] [address] Dr. Hemanth Kerr RBC 0-2 Normal 0-2 [facility] Comment on above: Performed By: #### L ACT #### [facility] [address] [place] [address] Dr. Hemanth Kerr WBC 10-20 Abnormal NONE SEEN [facility] Comment on above: Performed By: #### L ACT #### [facility] [address] [place] [address] Dr. Hemanth Kerr PREG QUANT HCGon 09-12-2022 HCG QUANT 66 mIU/mL Normal [facility] Comment on above: Performed By: #### C MP #### [facility] [address] [place] [address] Dr. Hemanth Kerr HCG RANGE SEE BELOW Normal [facility] Comment on above: Result Comment: 5-50 0.2-1 WEEK 50-500 1-2 WEEKS 100-5,000 2-3 WEEKS 500-10,000 3-4 WEEKS 1,000-50,000 4-5 WEEKS 10,000-100,000 5-6 WEEKS 15,000-200,000 6-8 WEEKS 10,000-100,000 2-3 MONTHS Performed By: #### C MP #### [facility] [address] [place] [address] Dr. Hemanth Kerr CBC AUTO DIFFon 08-16-2022 BASO # 0.0 103/ul Normal 0.0-0.1 [facility] Comment on above: Performed By: #### L ACT #### [facility] [address] [place] [address] Dr. Hemanth Kerr Basophils/100 WBC (Bld) 0.6 % Normal 0.2-2.0 [facility] Comment on above: Performed By: #### L ACT #### [facility] [address] [address] [address] Hemanth Kerr EO # 0.1 103/ul Normal 0.0-0.7 [facility] Comment on above: Performed By: #### L ACT #### [facility] [address] [place] [address] Dr. Hemanth Kerr Eosinophils/100 WBC (Bld) 1.3 % Normal 0.9-7.0 [facility] Comment on above: Performed By: #### L ACT #### [facility] [address] [place] [address] Dr. Hemanth Kerr Erythrocyte distribution width (RBC) [Ratio] 12.0 % Normal 11.0-15.0 [facility] Comment on above: Performed By: #### L ACT #### [facility] [address] [place] [address] Dr. Hemanth Kerr Hematocrit (Bld) [Volume fraction] 35.6 % Critically low 36.0-48.0 [facility] Comment on above: Performed By: #### L ACT #### [facility] [address] [place] [address] Dr. Hemanth Kerr Hemoglobin (Bld) [Mass/Vol] 12.4 g/dL Normal 12.0-16.0 [facility] Comment on above: Performed By: #### L ACT #### [facility] [address] [place] [address] Dr. Hemanth Kerr IG # 0.02 10e3/ul Normal 0.00-0.03 [facility] Comment on above: Performed By: #### L ACT #### [facility] [address] [place] [address] Dr. Hemanth Kerr IG % 0.3 % Normal 0.0-0.5 [facility] Comment on above: Performed By: #### L ACT #### [facility] [address] [place] [address] Dr. Hemanth Kerr LYMPH # 1.9 103/ul Normal 1.2-3.8 [facility] Comment on above: Performed By: #### L ACT #### [facility] [address] [place] [address] Dr. Hemanth Kerr Lymphocytes/100 WBC (Bld) 27.5 % Normal 20.5-60.0 [facility] Comment on above: Performed By: #### L ACT #### [facility] [address] [place] [address] Dr. Hemanth Kerr MANUAL DIFF REQ NO Normal [facility] Comment on above: Performed By: #### L ACT #### [facility] [address] [place] [address] Dr. Hemanth Kerr MCH (RBC) [Entitic mass] 29.6 pg Normal 26.7-34.0 [facility] Comment on above: Performed By: #### L ACT #### [facility] [address] [place] [address] Dr. Hemanth Kerr MCHC (RBC) [Mass/Vol] 34.8 g/dL Normal 29.9-35.2 [facility] Comment on above: Performed By: #### L ACT #### [facility] [address] [place] [address] Dr. Hemanth Kerr MCV (RBC) [Entitic vol] 85.0 fL Normal 81.0-99.0 [facility] Comment on above: Performed By: #### L ACT #### [facility] [address] [place] [address] Dr. Hemanth Kerr MONO # 0.4 103/ul Normal 0.3-0.8 [facility] Comment on above: Performed By: #### L ACT #### [facility] [address] [place] [address] Dr. Hemanth Kerr Monocytes/100 WBC (Bld) 6.3 % Normal 1.7-12.0 [facility] Comment on above: Performed By: #### L ACT #### [facility] [address] [address] [address] Hemanth Kerr NEUT # 4.5 103/ul Normal 1.4-6.5 [facility] Comment on above: Performed By: #### L ACT #### [facility] [address] [address] [address] Hemanth Kerr Neutrophils/100 WBC (Bld) 64.0 % Normal 43.0-75.0 [facility] Comment on above: Performed By: #### L ACT #### [facility] [address] [place] [address] Dr. Hemanth Kerr Platelet mean volume (Bld) [Entitic vol] 10.6 fL Normal 9.5-13.5 [facility] Comment on above: Performed By: #### L ACT #### [facility] [address] [place] [address] Dr. Hemanth Kerr PLT 247 103/ul Normal 150-450 [facility] Comment on above: Performed By: #### L ACT #### [facility] [address] [place] [address] Dr. Hemanth Kerr RBC 4.19 106/ul Critically low 4.20-5.[address] [facility] Comment on above: Performed By: #### L ACT #### [facility] [address] [place] [address] Dr. Hemanth Kerr WBC 7.0 103/ul Normal 4.0-11.0 [facility] Comment on above: Performed By: #### L ACT #### [facility] [address] [place] [address] Dr. Hemanth Kerr Covid-19 PCR ([facility])on 07-20 SARS-CoV-2 (COVID-19) RNA ELMO+probe Ql (Unsp spec) Not detected Normal NOT DETECTED [facility] Comment on above: Result Comment: This test is not yet approved or cleared by the [place] FDA. When there are no FDA-approved or cleared tests available, and other criteria are met, FDA can make tests available under an emergency access mechanism called an Emergency Use Authorization (EUA). The EUA for this test is supported by the Pet Caretaker of Health and Human Service's (HHS's) declaration [...] Performed By: #### C MP #### [facility] [address] [place] [address] Dr. Hemanth Kerr PREG QUANT HCGon 08-16-2022 HCG QUANT [id number] mIU/mL Normal [facility] Comment on above: Performed By: #### P REG #### [facility] [address] [place] [address] Dr. Hemanth Kerr HCG RANGE SEE BELOW Normal [facility] Comment on above: Result Comment: 5-50 0.2-1 WEEK 50-500 1-2 WEEKS 100-5,000 2-3 WEEKS 500-10,000 3-4 WEEKS 1,000-50,000 4-5 WEEKS 10,000-100,000 5-6 WEEKS 15,000-200,000 6-8 WEEKS 10,000-100,000 2-3 MONTHS Performed By: #### P REG #### [facility] [address] [place] [address] Dr. Hemanth Kerr PREG QUANT HCGon 08-14-2022 HCG QUANT 68895 mIU/mL Normal [facility] Comment on above: Performed By: #### P REG #### [facility] [address] [place] [address] Dr. Hemanth Kerr HCG RANGE SEE BELOW Normal [facility] Comment on above: Result Comment: 5-50 0.2-1 WEEK 50-500 1-2 WEEKS 100-5,000 2-3 WEEKS 500-10,000 3-4 WEEKS 1,000-50,000 4-5 WEEKS 10,000-100,000 5-6 WEEKS 15,000-200,000 6-8 WEEKS 10,000-100,000 2-3 MONTHS Performed By: #### P REG #### [facility] [address] [address] [address] Hemanth Kerr US PREG TVon 08-14-2022 [...] CHRISTINE SÁNCHEZ Date: 2022-08-14 16:22 Normal [facility] US PREG TVon 07-27-2022 US PREG [...] CHRISTINE SÁNCHEZ Date: 2022-07-27 17:04 Normal [facility] XR CHEST 1 Von 07-09-2022 XR [...] by: FELIX WEBB Date: 2022-07-09 12:06 Normal [facility] ([id number]) 1995 F Date Time Provider Department 12/12/21 KING SUAZO During your visit today, we recorded the following information about you: Angelia Almazan 12/12/2021 11:16 AM Signed Pleases sign pending new cbc order. Thanks, Angelia Almazan MA Allergies As of Date: 12/12/2021 (No Known Allergies) Date Reviewed: 12/12/2021 Reviewed by: Jasmin Silverio APRN.[facility] - Fully Assessed Reason for Visit: Lab Orders [168] Primary Visit Diagnosis:Iron deficiency anemia, unspecified iron deficiency anemia type [D50.9] Order(s):CBC + DIFF [SQCBCDIF] Order #: [id number] FUTURE Prescriptions as of 12/12/2021 - gabapentin (NEURONTIN) 400 mg capsule Take by mouth. - Polysaccharide Iron Complex 180 mg iron cap Take by mouth. - aspirin 81 mg cap Take 81 mg by mouth once daily. - ONDANSETRON HCL ORAL Take 4 mg by mouth as needed. Problem List As Of Date: 12/12/2021 (None) Encounter Status:Closed by JASMIN SILVERIO on 12/12/[address] [facility] 11-10-[facility] NOE ERVIN ([id number]) 1995 F Date Time Provider Department 11/10/21 [...] B12 is slightly low. Options would be asfu-urv-[id number] B12 tablets 2 mg daily or start a monthly injection. Thanks, MELANY De La O RN 11/10/2021 3:40 PM Signed Informed pt of Dr Suazo's message. Pt verbalized understanding and states [facility] told her only 2 doses of [...] by JENNYFER DE LA O on 11/10/21 [facility] CNOVSPon 11-08-2021 CNOVSP Visit (SP) Office (HEMASA) NOE ERVIN ([id number]) 1995 F Date Time Provider Department 11/08/21 [...] shortness of breath, and is seen at [place] emergency room. Labs revealed a hemoglobin of [...] changes, r (more content not included)... Normal [facility] Comp Metabolic Panelon 11-08 Albumin [Mass/Vol] 3.6 g/dL Low 3.9-4.9 [facility] Comment on above: Performed By: #### S ERFOL, IRON, B12, FERR #### [address] [place], [place] [address] ALP [Catalytic activity/Vol] 79 U/L Normal 34-123 [facility] Comment on above: Performed By: #### S ERFOL, IRON, B12, FERR #### [facility] [address] [place], [place] [address] ALT [Catalytic activity/Vol] 8 U/L Normal 7-38 [facility] Comment on above: Performed By: #### S ERFOL, IRON, B12, FERR #### [facility] [address] [place], [place] [address] Anion gap [Moles/Vol] 9 mmol/L Normal 9-18 [facility] Comment on above: Performed By: #### S ERFOL, IRON, B12, FERR #### [facility] [address] [place], [place] [address] AST [Catalytic activity/Vol] 13 U/L Normal 13-35 [facility] Comment on above: Performed By: #### S ERFOL, IRON, B12, FERR #### [address] [place] [address] Bilirubin [Mass/Vol] 0.2 mg/dL Normal 0.2-1.3 [facility] Comment on above: Performed By: #### S ERFOL, IRON, B12, FERR #### [address] [address] Calcium [Mass/Vol] 9.3 mg/dL Normal 8.5-10.2 [facility] Comment on above: Performed By: #### S ERFOL, IRON, B12, FERR #### [address] [address] Chloride [Moles/Vol] 102 mmol/L Normal 97-105 [facility] Comment on above: Performed By: #### S ERFOL, IRON, B12, FERR #### [address] [address] CO2 [Moles/Vol] 23 mmol/L Normal 22-30 [facility] Comment on above: Performed By: #### S ERFOL, IRON, B12, FERR #### [address] [address] Creatinine [Mass/Vol] 0.55 mg/dL Low 0.58-0.96 [facility] Comment on above: Performed By: #### S ERFOL, IRON, B12, FERR #### [address] [place] [address] eGFR- Amer. >60 Normal [facility] Comment on above: Performed By: #### S ERFOL, IRON, B12, FERR #### [address] [place] [address] eGFR-All Other Races >60 Normal [facility] Comment on above: Result Comment: [...] #### S ERFOL, IRON, B12, FERR #### [facility] [address] [place], [place] [address] Glucose [Mass/Vol] 96 mg/dL Normal 74-99 [facility] Comment on above: Result Comment: The [place] Diabetes [employer] (ADA) provides guidance for cutoff [...] Standards of Medical Care in Diabetes 2016, [place] [employer]. Diabetes Care. 2016.39(Suppl 1). Performed By: #### S ERFOL, IRON, B12, FERR #### [facility] [address] [place], [place] [address] Potassium [Moles/Vol] 3.3 mmol/L Low 3.7-5.1 [facility] Comment on above: Performed By: #### S ERFOL, IRON, B12, FERR #### [address] [place], [place] [address] Protein [Mass/Vol] 6.3 g/dL Normal 6.3-8.0 [facility] Comment on above: Performed By: #### S ERFOL, IRON, B12, FERR #### [address] [address] Sodium [Moles/Vol] 134 mmol/L Low 136-144 [facility] Comment on above: Performed By: #### S ERFOL, IRON, B12, FERR #### [address] [address] Urea nitrogen [Mass/Vol] 4 mg/dL Low 7-21 [facility] Comment on above: Performed By: #### S ERFOL, IRON, B12, FERR #### [address] [id number] Ferritinon 11-08-2021 Ferritin [Mass/Vol] 203.0 ng/mL Normal 14.7-205.1 [facility] Comment on above: Performed By: #### S ERFOL, IRON, B12, FERR #### [address] [address] Folate, Serumon 11-08-2021 Folate [Mass/Vol] 8.5 ng/mL Normal >4.7 [facility] Comment on above: Performed By: #### S ERFOL, IRON, B12, FERR #### [address] [address] Iron and TIBCon 11-08-2021 Iron [Mass/Vol] 93 ug/dL Normal 41-186 [facility] Comment on above: Performed By: #### S ERFOL, IRON, B12, FERR #### [address] [address] TIBC 407 ug/dL High 232-386 [facility] Comment on above: Performed By: #### S ERFOL, IRON, B12, FERR #### [facility] [address] [id number] Transferrin Saturatn 23 % Normal 15-57 [facility] Comment on above: Performed By: #### S ERFOL, IRON, B12, FERR #### [facility] [address] [place], [place] [address] Remote CBCDIF (for [facility] use o nly)on 11-08-2021 Abs Baso <0.03 Normal <0.11 [facility] Abs [place] 0.57 k/uL Normal <0.87 [facility] Abs Neut 4.67 k/uL Normal 1.45-7.50 [facility] Absolute nRBC <0.01 Normal <0.01 [facility] Basophils/100 WBC (Bld) 0.3 % Normal [facility] DTYPE Auto Diff Normal [facility] Eosinophils (Bld) [#/Vol] 0.05 10*3/uL Normal <0.46 [facility] Eosinophils/100 WBC (Bld) 0.8 % Normal [facility] Erythrocyte distribution width (RBC) [Ratio] 29.9 % High 11.5-15.0 [facility] Hematocrit (Bld) [Volume fraction] 32.6 % Low 36.0-46.0 [facility] Hemoglobin (Bld) [Mass/Vol] 10.1 g/dL Low 11.5-15.5 [facility] Lymphocytes (Bld) [#/Vol] 1.25 10*3/uL Normal 1.00-4.00 [facility] Lymphocytes/100 WBC (Bld) 19.1 % Normal [facility] MCH 25.1 pG Low 26.0-34.0 [facility] MCHC (RBC) [Mass/Vol] 31.0 g/dL Normal 30.5-36.0 [facility] MCV (RBC) [Entitic vol] 81.1 fL Normal 80.0-100.0 [facility] Monocytes/100 WBC (Bld) 8.7 % Normal [facility] Neutrophils/100 WBC (Bld) 71.1 % Normal [facility] NRBCs 0.0 /100 WBC Normal 0 [facility] Platelet mean volume (Bld) [Entitic vol] 10.3 fL Normal 9.0-12.7 [facility] Platelets (Bld) [#/Vol] 223 10*3/uL Normal 150-400 [facility] Comment on above: Result Comment: Resu lt checked and verified Sample checked for a clot. RBC (Bld) [#/Vol] 4.02 10*6/uL Normal 3.90-5.20 [facility] WBC (Bld) [#/Vol] 6.56 10*3/uL Normal 3.70-11.00 [facility] Reticulocyteon 11-08-2021 Abs Retic 0.140 M/uL High 0.0180-0.1000 [facility] Comment on above: Performed By: #### S ERFOL, IRON, B12, FERR #### [address] [address] Retic% 3.5 % High 0.4-2.0 [facility] Comment on above: Performed By: #### S ERFOL, IRON, B12, FERR #### [address] [place] [address] Vitamin B12on 11-08-2021 Cobalamin (Vitamin B12) [Mass/Vol] 218 pg/mL Low 232-1245 [facility] Comment on above: Performed By: #### S ERFOL, IRON, B12, FERR #### [address] [place] [address] HCV RNA,Quant,PCRon 04-27-20 20 HCV RNA,Quant,PCR Specimen [...] genotypes 1-6. Report Status FINAL 04/27/2020 Normal [facility] Comment on above: Performed By: #### H IVCMB, PHEP #### [address] [address] Stock Mover: Dom Fowler MD #### CP #### [facility] [address] [place] [address] Dr[phone] Stock Mover: Shakeel Graham MD [facility] 04-26-2020 Erythrocyte distribution width (RBC) [Ratio] 14.7 % High 11.8-14.4 [facility] Comment on above: Performed By: #### H IVCMB, PHEP #### [address] [address] Stock Mover: Dom Fowler MD #### CP #### [facility] [address] [place] [address] Dr. [address] [phone] Stock Mover: Shakeel Graham MD Hematocrit (Bld) [Volume fraction] 36.0 % Low 36.3-47.1 [facility] Comment on above: Performed By: #### H IVCMB, PHEP #### [address] [address] Stock Mover: Dom Fowler MD #### CP #### [facility] [address] [place] [address] [phone] Stock Mover: Shakeel Graham MD Hemoglobin (Bld) [Mass/Vol] 10.9 g/dL Low 11.9-15.1 [facility] Comment on above: Performed By: #### H IVCMB, PHEP #### [address] [address] Stock Mover: Dom Fowler MD #### CP #### [facility] [address] [place] [address] [place] [phone] Stock Mover: Shakeel Graham MD MCH (RBC) [Entitic mass] 26.2 pg Normal 25.2-33.5 [facility] Comment on above: Performed By: #### H IVCMB, PHEP #### [address] [address] Stock Mover: Dom Fowler MD #### CP #### [facility] [address] [place] [address] Dr. [phone] Stock Mover: Shakeel Graham MD MCHC (RBC) [Mass/Vol] 30.3 g/dL Normal 28.4-34.8 [facility] Comment on above: Performed By: #### H IVCMB, PHEP #### [address] [address] Stock Mover: Dom Fowler MD #### CP #### [address] [place] [phone] Stock Mover: Shakeel Graham MD MCV (RBC) [Entitic vol] 86.5 fL Normal 82.6-102.9 [facility] Comment on above: Performed By: #### H IVCMB, PHEP #### [address] [address] Stock Mover: Dom Fowler MD #### CP #### [address] [place] [phone] Stock Mover: Shakeel Graham MD NRBC Automated 0.0 per 100 WBC Normal 0.0 [facility] Comment on above: Performed By: #### H IVCMB, PHEP #### [address] [address] Stock Mover: Dom Fowler MD #### CP #### [address] [place], [place] [phone] Stock Mover: Shakeel Graham MD Platelet mean volume (Bld) [Entitic vol] 10.8 fL Normal 8.1-13.5 [facility] Comment on above: Performed By: #### H IVCMB, PHEP #### [address] [address] Stock Mover: Dom Fowler MD #### CP #### [address] [place], [place] [phone] Stock Mover: Shakeel Graham MD Platelets (Bld) [#/Vol] 328 10*3/uL Normal 138-453 [facility] Comment on above: Performed By: #### H IVCMB, PHEP #### [address] [address] Stock Mover: Dom Fowler MD #### CP #### [address] [place] [phone] Stock Mover: Shakeel Graham MD RBC (Bld) [#/Vol] 4.16 10*6/uL Normal 3.95-5.11 [facility] Comment on above: Performed By: #### H IVCMB, PHEP #### [address] [address] Stock Mover: Dom Fowler MD #### CP #### [address] [place] [phone] Stock Mover: Shakeel Graham MD WBC (Bld) [#/Vol] 5.7 10*3/uL Normal 3.5-11.3 [facility] Comment on above: Performed By: #### H IVCMB, PHEP #### [address] [address] Stock Mover: Dom Fowler MD #### CP #### [address] [place] [address] Stock Mover: Shakeel Graham MD Erythrocyte distribution width (RBC) [Ratio] 14.7 % High 11.8 - 14.4 % [place], [place] Hematocrit (Bld) [Volume fraction] 36.0 % Low 36.3 - 47.1 % [place], [place] Hemoglobin (Bld) [Mass/Vol] 10.9 g/dL Low 11.9 - 15.1 g/dL [place] Interpretation and review of laboratory results Abnormal [place] MCH (RBC) [Entitic mass] 26.2 pg 25.2 - 33.5 pg [place] MCHC (RBC) [Mass/Vol] 30.3 g/dL 28.4 - 34.8 g/dL [place] MCV (RBC) [Entitic vol] 86.5 fL 82.6 - 102.9 fL [place] Platelet mean volume (Bld) [Entitic vol] 10.8 fL 8.1 - 13.5 fL [place] Platelets (Bld) [#/Vol] 328 10*3/uL [place] RBC (Bld) [#/Vol] 4.16 10*6/uL 3.95 - 5.1 1 m/uL [place] WBC (Bld) [#/Vol] 0.0 10*3/uL 0.0 per 100 WBC [place], [place] WBC (Bld) [#/Vol] 5.7 10*3/uL [place], [place] Comp Metabolic Profon 2019 Bilirubin Ql (U) <0.10 Low 0.3-1.2 [facility] Comment on above: Performed By: #### H IVCMB, PHEP #### [facility] [address] [place] [address] Stock Mover: Dom Fowler MD #### CP #### [facility] [address] [address] Stock Mover: Shakeel Graham MD (cont.) Normal [facility] Comment on above: Result Comment: Aver age GFR for 20-29 years old: 116 mL/min/1.73sq m Chronic Kidney Disease: <60 mL/min/1.73sq m Kidney failure: <15 mL/min/1.73sq m eGFR calculated using average adult body mass. Additional eGFR calculator available at: http://www.[employer]/multiple_crcl_2011.htm Performed By: #### H IVCMB, PHEP #### [facility] [address] [place] [address] Stock Mover: Dom Fowler MD #### CP #### [facility] [address] [place] [address] Stock Mover: Shakeel Graham MD Albumin [Mass/Vol] 3.4 g/dL Low 3.5-5.2 [facility] Comment on above: Performed By: #### H IVCMB, PHEP #### [address] [place] [address] Stock Mover: Dom Fowler MD #### CP #### [facility] [address] [place] [address] Stock Mover: Shakeel Graham MD Albumin/Globulin [Mass ratio] 1.5 {ratio} Normal 1.0-2.5 [facility] Comment on above: Performed By: #### H IVCMB, PHEP #### [address] [place] [address] Stock Mover: Dom Fowler MD #### CP #### [facility] [address] [address] Stock Mover: Shakeel Graham MD Alkaline Phos 40 U/L Normal 35-104 [facility] Comment on above: Performed By: #### H IVCMB, PHEP #### [address] [address] Stock Mover: Dom Fowler MD #### CP #### [facility] [address] [place], [place] [phone] Stock Mover: Shakeel Graham MD ALT [Catalytic activity/Vol] 12 U/L Normal 5-33 [facility] Comment on above: Performed By: #### H IVCMB, PHEP #### [facility] [address] [place] [address] Stock Mover: Dom Fowler MD #### CP #### [facility] [address] [place], [place] [phone] Stock Mover: Shakeel Graham MD Anion gap [Moles/Vol] 9 mmol/L Normal 9-17 [facility] Comment on above: Performed By: #### H IVCMB, PHEP #### [facility] [address] [place] [address] Stock Mover: Dom Fowler MD #### CP #### [facility] [address] [place], [place] [phone] Stock Mover: Shakeel Graham MD AST [Catalytic activity/Vol] 12 U/L Normal <32 [facility] Comment on above: Performed By: #### H IVCMB, PHEP #### [facility] [address] [place] [address] Stock Mover: Dom Fowler MD #### CP #### [facility] [address] [place], [place] [phone] Stock Mover: Shakeel Graham MD BUN/CRE Ratio 26 High 9-20 [facility] Comment on above: Performed By: #### H IVCMB, PHEP #### [facility] [address] [place] [address] Stock Mover: Dom Fowler MD #### CP #### [facility] [address] [place], [place] [phone] Stock Mover: Shakeel Graham MD Calcium [Mass/Vol] 9.3 mg/dL Normal 8.6-10.4 [facility] Comment on above: Performed By: #### H IVCMB, PHEP #### [address] [address] Stock Mover: Dom Fowler MD #### CP #### [facility] [address] [place] [address] Dr[address] [phone] Stock Mover: Shakeel Graham MD Chloride [Moles/Vol] 109 mmol/L High 98-107 [facility] Comment on above: Performed By: #### H IVCMB, PHEP #### [address] [address] Stock Mover: Dom Fowler MD #### CP #### [facility] [address] [place] [address] [place] [phone] Stock Mover: Shakeel Graham MD CO2 [Moles/Vol] 26 mmol/L Normal 20-31 [facility] Comment on above: Performed By: #### H IVCMB, PHEP #### [address] [address] Stock Mover: Dom Fowler MD #### CP #### [address] [place] [phone] Stock Mover: Shakeel Graham MD Creatinine [Mass/Vol] 0.57 mg/dL Normal 0.50-0.90 [facility] Comment on above: Performed By: #### H IVCMB, PHEP #### [address] [address] Stock Mover: Dom Fowler MD #### CP #### [facility] [address] [place] [address] [place] [phone] Stock Mover: Shakeel Graham MD GFR, Amer >60 Normal >60 [facility] Comment on above: Performed By: #### H IVCMB, PHEP #### [facility] [address] [place] [address] Stock Mover: Dom Fowler MD #### CP #### [facility] [address] [place], [place] [phone] Stock Mover: Shakeel Graham MD GFR,non Amer >60 Normal >60 [facility] Comment on above: Performed By: #### H IVCMB, PHEP #### [address] [address] Stock Mover: Dom Fowler MD #### CP #### [facility] [address] [place] [address] [place], [place] [phone] Stock Mover: Shakeel Graham MD Glucose [Mass/Vol] 92 mg/dL Normal 70-99 [facility] Comment on above: Performed By: #### H IVCMB, PHEP #### [address] [address] Stock Mover: Dom Fowler MD #### CP #### [facility] [address] [place] [address] [place] [address] Stock Mover: Shakeel Graham MD Potassium [Moles/Vol] 3.8 mmol/L Normal 3.7-5.3 [facility] Comment on above: Performed By: #### H IVCMB, PHEP #### [facility] [address] [place] [address] Stock Mover: Dom Fowler MD #### CP #### [facility] [address] [place], [place] [phone] Stock Mover: Shakeel Graham MD Protein [Mass/Vol] 5.7 g/dL Low 6.4-8.3 [facility] Comment on above: Performed By: #### H IVCMB, PHEP #### [address] [address] Stock Mover: Dom Fowler MD #### CP #### [facility] [address] [place] [address] Stock Mover: Shakeel Graham MD Sodium [Moles/Vol] 144 mmol/L Normal 135-144 [facility] Comment on above: Performed By: #### H IVCMB, PHEP #### [place] [address] [place] [address] Stock Mover: Dom Fowler MD #### CP #### [facility] [address] [place] [address] Stock Mover: Shakeel Graham MD Staging: Normal [facility] Comment on above: Result Comment: Stag e 1: Some kidney damage normal GFR Stage 2: Mild kidney damage GFR 60-89 Stage 3: Moderate kidney damage GFR 30-59 Stage 4: Severe kidney damage GFR 15-29 Stage 5: Severe kidney damage GFR <15 ESRD - chronic treatment by dialysis or transplant Performed By: #### H IVCMB, PHEP #### [facility] [address] [place] [address] Stock Mover: Dom Fowler MD #### CP #### [address] [place] [address] Stock Mover: Shakeel Graham MD Urea nitrogen [Mass/Vol] 15 mg/dL Normal 6-20 [facility] Comment on above: Performed By: #### H IVCMB, PHEP #### [facility] [address] [place] [address] Stock Mover: Dom Fowler MD #### CP #### [address] [place] [address] Stock Mover: Shakeel Graham MD [facility] 04-26-2020 Albumin [Mass/Vol] 3.4 g/dL Low 3.5 - 5.2 g/dL [place] Albumin/Globulin [Mass ratio] 1.5 {ratio} [place], [place] ALP [Catalytic activity/Vol] 40 U/L 35 - 104 U/L [place] ALT [Catalytic activity/Vol] 12 U/L 5 - 33 U/L [place] Anion gap [Moles/Vol] 9 mmol/L 9 - 17 mmol/L [place] AST [Catalytic activity/Vol] 12 U/L <32 [place] Bilirubin Ql (U) <0.10 Low 0.3 - 1.2 mg/dL [place], [place] Bun/Cre Ratio 26 High [place], [place] Calcium [Mass/Vol] 9.3 mg/dL 8.6 - 10. 4 mg/dL [place] Chloride [Moles/Vol] 109 mmol/L High 98 - 107 mmol/L [place] CO2 [Moles/Vol] 26 mmol/L 20 - 31 mmol/L [place] Creatinine [Mass/Vol] 0.57 mg/dL 0.5 - 0.9 mg/dL [place] GFR >60 >60 mL/min [place] GFR Non- >60 >60 mL/min [place] Glucose [Mass/Vol] 92 mg/dL 70 - 99 mg/dL [place] Interpretation and review of laboratory results Abnormal [place] Potassium [Moles/Vol] 3.8 mmol/L 3.7 - 5.3 mmol/L [place] Protein [Mass/Vol] 5.7 g/dL Low 6.4 - 8.3 g/dL [place], [place] Sodium [Moles/Vol] 144 mmol/L 135 - 144 mmol/L [place] Urea nitrogen [Mass/Vol] 15 mg/dL 6 - 20 mg/dL [place] HCG Qualitative, Serumon hCG Qual Negative NEGATIVE [place] Comment on above: Specimens with hCG l evels near the threshold of the test (25 mIU/mL) may give a negative or indeterminate result. In such cases, another test should be performed with a new specimen in 48-72 hours. If early is suspected clinically in this setting, correlation with quantitative serum b-hCG level is suggested. [facility] has confirmed the use of plasma for this test. This has not been cleared or approved by the U.S. Food and Drug Administration. The FDA has determined that such clearance is not necessary. HCG Screen, Bloodon 04-26-20 20 HCG Qn Negative Normal NEG [facility] Comment on above: Result Comment: Spec imens with hCG levels near the threshold of the test (25 mIU/mL) may give a negative or indeterminate result. In such cases, another test should be performed with a new specimen in 48-72 hours. If early is suspected clinically in this setting, correlation with quantitative serum b-hCG level is suggested. [facility] has confirmed the use of plasma for this test. This has not been cleared or approved by the U.S. Food and Drug Administration. The FDA has determined that such clearance is not necessary. Performed By: #### H IVCMB, PHEP #### [facility] [address] [place], [place] [phone] Stock Mover: Dom Fowler MD #### CP #### [facility] [address] [place] [address] [place] [address] Stock Mover: Shakeel Graham MD HIV Ag/Abon 04-26-2020 HIV Ag/Ab NONREACTIVE Normal NR [facility] Comment on above: Result Comment: No l aboratory evidence of HIV infection. If acute HIV infection is suspected, consider testing for HIV-1 RNA. Performed By: #### H IVCMB, PHEP #### [facility] [address] [place] [address] Stock Mover: Dom Fowler MD #### CP #### [facility] [address] [place] [address] Stock Mover: Shakeel Graham MD HIV Screenon 04-26-2020 HIV Ag/Ab NONREACTIVE NONREACTIVE [facility], [place] Comment on above: No laboratory eviden ce of HIV infection. If acute HIV infection is suspected, consider testing for HIV-1 RNA. Hepatitis Acute [facility] 04-26 Hep A Ab,IgM NONREACTIVE Normal NR [facility] Comment on above: Performed By: #### H IVCMB, PHEP #### [facility] [address] [place] [address] Stock Mover: Dom Fowler MD #### CP #### [facility] [address] [place] [address] [place] [address] Stock Mover: Shakeel Graham MD Hep B Core Ab,IgM NONREACTIVE Normal [facility] Comment on above: Performed By: #### H IVCMB, PHEP #### [facility] [address] [place] [address] Stock Mover: Dom Fowler MD #### CP #### [address] [place] [address] Stock Mover: Shakeel Graham MD Hep B Surf Ag NONREACTIVE Normal [facility] Comment on above: Performed By: #### H IVCMB, PHEP #### [address] [address] Stock Mover: Dom Fowler MD #### CP #### [facility] [address] [place] [address] [place] [address] Stock Mover: Shakeel Graham MD Hep C Ab REACTIVE Abnormal [facility] Comment on above: Result Comment: [...] #### [facility] [address] [place] [address] Stock Mover: Dom Fowler MD #### CP #### [facility] [address] [place] [address] Stock Mover: Shakeel Graham MD Hepatitis Panel, Acuteon HAV IgM IA Qn (S) NONREACTIVE NONREACTIVE [place] Hep B Core Ab, IgM NONREACTIVE NONREACTIVE [place] Hepatitis B Surface Ag NONREACTIVE NONREACTIVE [place] Hepatitis C Ab REACTIVE Abnormal NONREACTIVE [place] Comment on above: The hepatitis C [...] Interpretation and review of laboratory results Abnormal [place] Metabolic Panelon 04-26-2020 GFR/1.73 sq M predicted among non-blacks MDRD (S/P/Bld) [Vol rate/Area] [place] Comment on above: Stage 1: Some [...] body mass. Additional eGFR calculator available at: http://www.GrabCAD.DigitalAdvisor/multiple_crcl_2012.htm Microscopic Urinalysison Amorphous, UA NOT REPORTED None [place], [place] Bacteria, UA NOT REPORTED None [place], [place] Casts UA NOT REPORTED /LPF [place] Crystals, UA 5 TO 10 Abnormal None /HPF [place] Crystals, UA CALCIUM OXALATE Abnormal None /HPF [place], [place] Epithelial Cells UA 0 TO 2 [place] Interpretation and review of laboratory results Abnormal [place] Mucus, UA TRACE Abnormal None [place] Other Observations UA NOT REPORTED NOT REQ. [place] RBC (U) [#/Vol] None [facility] [place] Renal Epithelial, UA NOT REPORTED 0 /HPF [place] Trichomonas, UA NOT REPORTED None [facility] [place] WBC, UA 0 TO 2 [place] Yeast, UA NOT REPORTED None [place], [place] - [place] UA w/Reflex Cultureon 2019 Acetoacetic Acid,Ur Negative Normal NEG [facility] Comment on above: Performed By: #### H IVCMB, PHEP #### [address] [address] Stock Mover: Dom Fowler MD #### CP #### [address] [place] [phone] Stock Mover: Shakeel Graham MD Bilirubin, SemiQt,Ur Negative Normal [facility] Comment on above: Performed By: #### H IVCMB, PHEP #### [address] [address] Stock Mover: Dom Fowler MD #### CP #### [address] [place] [phone] Stock Mover: Shakeel Graham MD Color (U) YELLOW Normal [facility] Comment on above: Performed By: #### H IVCMB, PHEP #### [address] [address] Stock Mover: Dom Fowler MD #### CP #### [facility] [address] [place] [address] [place] [address] Stock Mover: Shakeel Graham MD Glucose Ql (U) Negative Normal NEG [facility] Comment on above: Performed By: #### H IVCMB, PHEP #### [address] [address] Stock Mover: Dom Fowler MD #### CP #### [facility] [address] [place] [address] Dr[place], [place] [phone] Stock Mover: Shakeel Graham MD Hemoglobin, Ur Negative Normal NEG [facility] Comment on above: Performed By: #### H IVCMB, PHEP #### [address] [address] Stock Mover: Dom Fowler MD #### CP #### [address] [place] [address] Stock Mover: Shakeel Graham MD Leukocyte esterase Test strip Ql (U) Negative Normal NEG [facility] Comment on above: Performed By: #### H IVCMB, PHEP #### [address] [address] Stock Mover: Dom Fowler MD #### CP #### [address] [place] [address] Stock Mover: Shakeel Graham MD Nitrite,Ur Negative Normal NEG [facility] Comment on above: Performed By: #### H IVCMB, PHEP #### [address] [address] Stock Mover: Dom Fowler MD #### CP #### [address] [place] [address] Stock Mover: Shakeel Graham MD pH (U) 6.5 [pH] Normal 5.0-9.0 [facility] Comment on above: Performed By: #### H IVCMB, PHEP #### [address] [address] Stock Mover: Dom Fowlre MD #### CP #### [facility] [address] [place] [address] Stock Mover: Shakeel Graham MD Protein Ql (U) Negative Normal NEG [facility] Comment on above: Performed By: #### H IVCMB, PHEP #### [facility] [address] [place] [address] Stock Mover: Dom Fowler MD #### CP #### [address] [place] [address] Stock Mover: Shakeel Graham MD Specific gravity (U) [Rel density] 1.025 High 1.010-1.020 [facility] Comment on above: Performed By: #### H IVCMB, PHEP #### [facility] [address] [place] [address] Stock Mover: Dom Fowler MD #### CP #### [address] [place] [address] Stock Mover: Shakeel Graham MD Turbidity CLEAR Normal CLEAR [facility] Comment on above: Performed By: #### H IVCMB, PHEP #### [address] [address] Stock Mover: Dom Fowler MD #### CP #### [address] [place] [address] Stock Mover: Shakeel Graham MD Urobilinogen,Ur Normal Normal NORM [facility] Comment on above: Performed By: #### H IVCMB, PHEP #### [address] [address] Stock Mover: Dom Fowler MD #### CP #### [address] [place] [address] Stock Mover: Shakeel Graham MD Comment NOT REPORTED Normal [facility] Comment on above: Performed By: #### H IVCMB, PHEP #### [facility] [address] [place] [address] Stock Mover: Dom Fowler MD #### CP #### [address] [place] [address] Stock Mover: Shakeel Graham MD Urinalysis Reflex to Culture on 04-26-2020 Bilirubin Urine Negative NEGATIVE [facility], [place] Color, UA YELLOW YELLOW [facility], [place] Glucose, Ur Negative NEGATIVE [facility], [place] Interpretation and review of laboratory results Abnormal [place], [place] Ketones Ql (U) Negative NEGATIVE [facility], [place] Leukocyte esterase Test strip Ql (U) Negative NEGATIVE [facility], [place] Nitrite, Urine Negative NEGATIVE [facility], [place] pH, UA 6.5 [place] Protein (U) [Mass/Vol] Negative NEGATIVE [facility], [place] Specific [place], UA 1.025 High [facility], [place] Turbidity UA CLEAR CLEAR [place] Urinalysis Comments NOT REPORTED [facility], [place] Urine Hgb Negative NEGATIVE [facility], [place] Urobilinogen, Urine Normal Normal [place] Urinalysis,Microon 0 ----- Normal [facility] Comment on above: Performed By: #### H IVCMB, PHEP #### [place] [address] [place] [address] Stock Mover: Dom Fowler MD #### CP #### [address] [place] [address] Stock Mover: Shakeel Graham MD Crystals LM Nom (Urine sed) CALCIUM OXALATE Abnormal NONE [facility] Comment on above: Result Comment: 5 TO 10 Performed By: #### H IVCMB, PHEP #### [facility] [address] [place] [address] Stock Mover: Dom Fowler MD #### CP #### [facility] [address] [place] [address] Stock Mover: Shakeel Graham MD Epithelial cells LM.HPF (Urine sed) [#/Area] 0 TO 2 Normal 0-25 [facility] Comment on above: Performed By: #### H IVCMB, PHEP #### [address] [address] Stock Mover: Dom Fowler MD #### CP #### [address] [place], [place] [phone] Stock Mover: Shakeel Graham MD Mucus Strands TRACE Abnormal [facility] Comment on above: Performed By: #### H IVCMB, PHEP #### [address] [address] Stock Mover: Dom Fowler MD #### CP #### [address] [place] [phone] Stock Mover: Shakeel Graham MD RBC (U) [#/Vol] None Normal 0-2 [facility] Comment on above: Performed By: #### H IVCMB, PHEP #### [address] [address] Stock Mover: Dom Fowler MD #### CP #### [address] [place] [address] Stock Mover: Shakeel Graham MD WBC (U) [#/Vol] 0 TO 2 Normal 0-5 [facility] Comment on above: Performed By: #### H IVCMB, PHEP #### [address] [address] Stock Mover: Dom Fowler MD #### CP #### [address] [place], [place] [phone] Stock Mover: Shakeel Graham MD Amorphous sediment LM Ql (Urine sed) NOT REPORTED Normal [facility] Comment on above: Performed By: #### H IVCMB, PHEP #### [address] [address] Stock Mover: Dom Fowler MD #### CP #### [facility] [address] [address] Stock Mover: Shakeel Graham MD Bacteria LM.HPF (Urine sed) [#/Area] NOT REPORTED Normal NONE [facility] Comment on above: Performed By: #### H IVCMB, PHEP #### [address] [address] Stock Mover: Dom Fowler MD #### CP #### [address] [place] [address] Stock Mover: Shakeel Graham MD Casts LM.LPF (Urine sed) [#/Area] NOT REPORTED Normal [facility] Comment on above: Performed By: #### H IVCMB, PHEP #### [address] [address] Stock Mover: Dom Fowler MD #### CP #### [address] [place] [address] Stock Mover: Shakeel Graham MD Epithelial, Renal NOT REPORTED Normal 0 [facility] Comment on above: Performed By: #### H IVCMB, PHEP #### [address] [address] Stock Mover: Dom Fowler MD #### CP #### [address] [place] [address] Stock Mover: Shakeel Graham MD Other Observations NOT REPORTED Normal NREQ [facility] Comment on above: Performed By: #### H IVCMB, PHEP #### [address] [address] Stock Mover: Dom Fowler MD #### CP #### [facility] [address] [place], [place] [phone] Stock Mover: Shakeel Graham MD Trichomonas NOT REPORTED Normal NONE [facility] Comment on above: Performed By: #### H IVCMB, PHEP #### [facility] [address] [place], [place] [phone] Stock Mover: Dom Fowler MD #### CP #### [facility] [address] [place] [phone] Stock Mover: Shakeel Graham MD Yeast LM Ql (Urine sed) NOT REPORTED Normal NONE [facility] Comment on above: Performed By: #### H IVCMB, PHEP #### [facility] [address] [place], [place] [phone] Stock Mover: Dom Fowler MD #### CP #### [facility] [address] [place] [address] Dr. [place] [phone] Stock Mover: Shakeel Graham MD ED Clinical Summaryon 2019 ED Clinical Summary [address] [address] ED Clinical Summary Person Information Name: Kathryn Ervin/[facility] Age: 25 Years : 1995 Sex: Female PCP: Marital Status: Single Phone: Race: White Ethnicity: Not or Language: Nauruan Visit Reason: Drug withdrawal; Drug withdrawal Acuity: 3 Enc Type: Emergency Med Service: Emergency Medicine Arrival: 03/16/2020 20:10:45 Discharge: 03/17/2020 02:12:00 LOS: 000 06:02 Checkin: 03/16/2020 20:10:45 Checkout: 03/17/2020 02:12:00 Dispo Type: Home or Self Care Address: [address] [place] [id number] Provider Notes: Diagnosis: 1:Affective disorder; 2:Drug usage [...] range between ( 27.2 and 40.8 ) [place] Auto: 11.4 % -- Normal range between [...] range between ( 36.0 and 46.0 ) [place] Absolute: 1.5 x10 MCH: 27.4 pg -- [...] 03/16/2020 20:20:41 Follow up: With: Address: When: [facility] In [place], [place] Within 1 to 2 days Discharge Orders: Discharge Patient 03/17/20 1:45:00 EDT, Discharge to Home, Self Patient Education Information: Understanding Methamphetamine Abuse and Addiction; Treating Affective (Mood) Disorders [facility] Poison Help line: . [facility] Mental Health Hotline: [place] Tobacco Quit Line: [place], [place]) [address]: [phone] [place], [place]) [address]: [phone] [facility] [address] [place], [place]: [phone] Normal [facility] hCG Quantitativeon 0 Beta hCG Qnt 1.7 mIU/mL Normal 0.0-4.9 [facility] Comment on above: Result Comment: 0.0 - 4.9 Negative for 5.0 - 25.0 Indeterminant for : Suggest repeat in 72 hours. >25.0 Positive for Performed By: #### H CG ####[place] [address] .UA Microscp Aon 03-16-2020 UA Hyline Cast Qual >20 Abnormal Negative [facility] Comment on above: Performed By: #### C [id number] ####[place] [address] UA Mucus Present Abnormal Absent [facility] Comment on above: Performed By: #### C [id number] ####[place] [id number] UA RBC Quant 12 /HPF High 0-5 [facility] Comment on above: Performed By: #### C [id number] ####[address] [address] UA Squepi Cells Quant 6 /HPF Normal 0-29 [facility] Comment on above: Performed By: #### C [id number] ####[address] [address] UA WBC Quant 7 /HPF High 0-5 [facility] Comment on above: Performed By: #### C [id number] ####[facility] [place] [address] .eGFRon 03-16-2020 eGFR AA 52 mL/min/1.73m? Low >=60 [facility] Comment on above: Result Comment: Resu lt = 0-14.9 mL/min/1.73 m2 Kidney failure or Dialysis Result = 15-29 mL/min/1.73 m2 Severe decrease in GFR Result = 30-59 mL/min/1.73 m2 Moderate decrease in GFR Result >= 60 mL/min/1.73 m2 Normal or increased GFR Performed By: #### E GFR #### [address] [address] eGFR Non-AA 43 mL/min/1.73m? Low >=60 [facility] Comment on above: Result Comment: Resu [...] Performed By: #### E GFR #### [address] [address] CBC w/ Diffon 03-16-2020 Erythrocyte distribution width (RBC) [Ratio] 15.9 % High 11.6-14.8 [facility] Comment on above: Performed By: #### C BC #### [address] [address] Hematocrit (Bld) [Volume fraction] 37.5 % Normal 36.0-46.0 [facility] Comment on above: Performed By: #### C BC #### [address] [address] Hemoglobin (Bld) [Mass/Vol] 12.5 g/dL Normal 12.0-16.0 [facility] Comment on above: Performed By: #### C BC #### [address] [address] MCH (RBC) [Entitic mass] 27.4 pg Normal 27.0-35.0 [facility] Comment on above: Performed By: #### C BC #### [address] [address] MCHC (RBC) [Mass/Vol] 33.2 % Normal 31.0-37.0 [facility] Comment on above: Performed By: #### C BC #### [address] [address] MCV (RBC) [Entitic vol] 82.4 fL Normal 80.0-100.0 [facility] Comment on above: Performed By: #### C BC #### [address] [address] Platelet mean volume (Bld) [Entitic vol] 9.4 fL Normal 6.7-10.6 [facility] Comment on above: Performed By: #### C BC #### [address] [address] Platelets (Bld) [#/Vol] 307 x10*3/mcL Normal 150-350 [facility] Comment on above: Performed By: #### C BC #### [address] [address] RBC (Bld) [#/Vol] 4.55 x10*6/mcL Normal 3.80-5.20 [facility] Comment on above: Performed By: #### C BC #### [address] [address] WBC (Bld) [#/Vol] 12.9 x10*3/mcL High 4.5-11.0 [facility] Comment on above: Performed By: #### C BC #### [address] [address] CMPon 03-16-2020 Albumin [Mass/Vol] 5.2 g/dL High 3.2-4.9 [facility] Comment on above: Result Comment: [facility] Laboratory updated the methodology used for albumin testing on 04/24/18. Albumin measurement was performed using a bromcresol purple dye-binding assay. Performed By: #### C OMP #### [address] [address] Albumin/Globulin [Mass ratio] 1.5 {ratio} Normal 1.1-2.2 [facility] Comment on above: Performed By: #### C OMP #### [address] [address] Alk Phos 47 IU/L Normal 32-91 [facility] Comment on above: Performed By: #### C OMP #### [address] [address] ALT [Catalytic activity/Vol] 19 U/L Normal 14-54 [facility] Comment on above: Performed By: #### C OMP #### [address] [address] Anion gap [Moles/Vol] 22 mmol/L High 7-17 [facility] Comment on above: Performed By: #### C OMP #### [address] [address] AST [Catalytic activity/Vol] 31 U/L Normal 15-41 [facility] Comment on above: Performed By: #### C OMP #### [address] [place] [address] Bili Total 1.4 mg/dL High 0.3-1.2 [facility] Comment on above: Performed By: #### C OMP #### [address] [address] Calcium [Mass/Vol] 10.2 mg/dL Normal 8.5-10.3 [facility] [facility] Comment on above: Performed By: #### C OMP #### [address] [address] Chloride [Moles/Vol] 100 mmol/L Normal 98-110 [facility] Comment on above: Performed By: #### C OMP #### [address] [address] CO2 [Moles/Vol] 19 mmol/L Low 22-32 [facility] Comment on above: Performed By: #### C OMP #### [address] [address] Creatinine [Mass/Vol] 1.47 mg/dL High 0.44-1.03 [facility] Comment on above: Performed By: #### C OMP #### [address] [address] Glucose [Mass/Vol] 85 mg/dL Normal 70-99 [facility] Comment on above: Performed By: #### C OMP #### [address] [address] Potassium [Moles/Vol] 3.7 mmol/L Normal 3.4-4.8 [facility] Comment on above: Performed By: #### C OMP #### [address] [address] Protein [Mass/Vol] 8.7 g/dL High 6.5-8.1 [facility] Comment on above: Performed By: #### C OMP #### [address] [address] Sodium [Moles/Vol] 137 mmol/L Normal 133-142 [facility] Comment on above: Performed By: #### C OMP #### [address] [address] Urea nitrogen [Mass/Vol] 25 mg/dL Normal 8-26 [facility] Comment on above: Performed By: #### C OMP #### [address] [address] Urea nitrogen/Creatinine [Mass ratio] 17.0 mg/mg Normal 10.0-20.0 [facility] Comment on above: Performed By: #### C OMP #### [address] [address] CPKon 03-16-2020 Creatine Phosphokinase 439 IU/L High 38-234 [facility] Comment on above: Performed By: #### C P #### [address] [address] Diff Autoon 03-16-2020 Baso Absolute 0.0 x10*3/mcL Normal 0.0-0.2 [facility] Comment on above: Performed By: #### . Automated Diff #### [address] [address] Basophils/100 WBC (Bld) 0.4 % Normal 0.0-1.5 [facility] Comment on above: Performed By: #### . Automated Diff #### [address] [address] Eos Absolute 0.0 x10*3/mcL Normal 0.0-0.4 [facility] Comment on above: Performed By: #### . Automated Diff #### [address] [address] Eosinophils/100 WBC (Bld) 0.1 % Normal 0.0-5.4 [facility] Comment on above: Performed By: #### . Automated Diff #### [address] [address] Lymphocytes (Bld) [#/Vol] 1.4 x10*3/mcL Normal 1.0-4.8 [facility] Comment on above: Performed By: #### . Automated Diff #### [address] [address] Lymphocytes/100 WBC (Bld) 10.8 % Low 27.2-40.8 [facility] Comment on above: Performed By: #### . Automated Diff #### [address] [address] [place] Absolute 1.5 x10*3/mcL High 0.1-1.1 [facility] Comment on above: Performed By: #### . Automated Diff #### [facility] [address] [place] [address] Monocytes/100 WBC (Bld) 11.4 % Normal 3.7-11.9 [facility] Comment on above: Performed By: #### . Automated Diff #### [facility] [address] [place] [address] Neutro Absolute 10.0 x10*3/mcL High 1.8-7.7 [facility] Comment on above: Performed By: #### . Automated Diff #### [facility] [address] [place] [address] Neutro Auto 77.3 % High 47.2-70.8 [facility] Comment on above: Performed By: #### . Automated Diff #### [address] [address] ED Note-Nursingon 03-16-2020 ED Note-Nursing Lab called about add ons Electronically signed by Barbara Holman 03/16/20 20:49 EDT Normal [facility] ED Note-Physicianon 03-16-20 ED Note-Physician Chief [...] that she has residential set up at [facility] in [place], [place] but she has to detox first. [...] as well. She was seen by Alonso, dialysis social worker who has arranged for her to go to [facility] tomorrow as patient is interested in treatment. Verbally contracted to safety and filled out a safety plan. Alonso with social work spoke with nutrition director, Jelena who will arrange for further follow-up when they arrive tomorrow. Family is agreeable with plan. Patient has good support. They will return if any changes of symptoms or concern. Silvia Castañeda scribing for and in the presence of Dr. Cornell. Scribe Attestation: The information in this document, created by the medical center representative for me, accurately reflects the services I [...] High Lymph Auto 03/16/20 20:39 10.8 Low [place] Auto 03/16/20 20:39 11.4 Eos Auto 03/16/20 20:39 0.1 Basophil Auto 03/16/20 20:39 0.4 Neutro Absolute 03/16/20 20:39 10.0 High Lymph Absolute 03/16/20 20:39 1.4 [place] Absolute 03/16/20 20:39 1.5 High Eos Absolute [...] Lima Cornell MD 03/17/2020 04:16 EDT Normal [facility] Ethanolon 03-16-2020 Ethanol [Mass/Vol] mg/dL Normal <=9 [facility] Comment on above: Result Comment: To c onvert mg/dL to g/dL, divide result by 1,000. Legal limit of intoxication is 80 mg/dL (0.08 g/dL). Performed By: #### A LC #### [address] [address] UA w Culture if Indon 2019 Color (U) Terri Normal [facility] Comment on above: Performed By: #### U CI #### [address] [address] Glucose (U) [Mass/Vol] Negative Normal Negative [facility] Comment on above: Performed By: #### U CI #### [address] [address] Ketones Ql (U) 20 mg/dL Abnormal Negative [facility] Comment on above: Performed By: #### U CI #### [address] [address] UA Blood Small Abnormal Negative [facility] Comment on above: Performed By: #### U CI #### [address] [address] UA Clarity Cloudy Normal [facility] Comment on above: Performed By: #### U CI #### [address] [address] UA Leukocyte Esterase Trace Abnormal Negative [facility] Comment on above: Performed By: #### U CI #### [address] [address] UA Nitrite Negative Normal Negative [facility] Comment on above: Performed By: #### U CI #### [address] [address] UA pH 5.0 Normal 4.5 - 7.8 [facility] Comment on above: Performed By: #### U CI #### [address] [address] UA Protein 100 mg/dL Abnormal Negative [facility] Comment on above: Performed By: #### U CI #### [address] [address] UA Source Clean Catch Normal [facility] Comment on above: Performed By: #### U CI #### [address] [address] UA Spec Grav 1.025 Normal 1.003-1.035 [facility] Comment on above: Performed By: #### U CI #### [address] [address] UA Urobilinogen 0.2 mg/dL Normal 0.2 - 1.0 [facility] Comment on above: Performed By: #### U CI #### [place] [id number] Urobilinogen Qn (U) Small Abnormal Negative [facility] Comment on above: Performed By: #### U CI #### [address] [address] UDS Compon 03-16-2020 Creatinine [Mass/Vol] mg/dL Normal [facility] Comment on above: Performed By: #### C [id number] #### [address] [address] Ur Amph Scrn Positive Abnormal NEG = <1000 [facility] Comment on above: Result Comment: This unconfirmed positive screening result is to be used for medical treatment purposes only. Unconfirmed screening results must not be used for non-medical purposes. (e.g. employment testing, legal testing). Performed By: #### C [id number] #### [address] [address] Ur Anastasia Scrn Negative Normal NEG = <200 [facility] Comment on above: Performed By: #### C [id number] #### [facility] [address] [place] [address] Ur Benzodia Scrn Negative Normal NEG = <200 [facility] Comment on above: Performed By: #### C [id number] #### [facility] [address] [place] [address] Ur Cannab Scrn Negative Normal NEG = <50 [facility] Comment on above: Performed By: #### C [id number] #### [facility] [address] [place] [address] [place] [address] Ur Cocaine Scrn Negative Normal NEG = <300 [facility] Comment on above: Performed By: #### C [id number] #### [address] [place] [address] Ur Methadone Scn Negative Normal NEG = <300 [facility] Comment on above: Performed By: #### C [id number] #### [address] [place] [address] Ur Opiate Scrn Negative Normal NEG = <300 [facility] Comment on above: Performed By: #### C [id number] #### [facility] [address] [place] [address], [place] [address] Ur Oxy Screen Negative Normal NEG = <100 [facility] Comment on above: Performed By: #### C [id number] #### [facility] [address] [place] [address] [place] [address] Ur Oxy Scrn Qnt 54 ng/mL Normal <=99 [facility] Comment on above: Performed By: #### C [id number] #### [facility] [address] [place] [address] [place] [address] Ur PCP Scrn Negative Normal NEG = <25 [facility] Comment on above: Performed By: #### C [id number] #### [address] [place] [address] UA pH 5.0 Normal 4.5 - 7.8 [facility] Comment on above: Performed By: #### C [id number] #### [facility] [address] [place] [address] UA Spec Grav 1.024 Normal 1.003-1.035 [facility] Comment on above: Performed By: #### C [id number] #### [facility] [address] [place] [address] Chlamydia/GC DNA, Uron 11-23 Chlamydia Probe, Ur Negative Normal NEG [facility] Comment on above: Result Comment: CHLA [...] Performed By: #### H IVCMB, PHEP #### [address] [id number] Stock Mover: Dom Fowler MD #### CP #### [facility] [address] [place], [facility] Stock Mover: Shakeel Graham MD Gonorrhea Probe, Ur Negative Normal NEG [facility] Comment on above: Result Comment: NEIS [...] Performed By: #### H IVCMB, PHEP #### [place] [address] [place], [place] [phone] Stock Mover: Dom Fowler MD #### CP #### [facility] [address] [place] [address] Stock Mover: Shakeel Graham MD Cult,Urineon 11-22-2019 Cult,Urine Specimen Description .VOIDED URINE Special Requests NOT REPORTED Culture NO SIGNIFICANT GROWTH Report Status FINAL 11/22/2019 Normal [facility] Comment on above: Performed By: #### H IVCMB, PHEP #### [facility] [address] [place] [address] Stock Mover: Dom Fowler MD #### CP #### [facility] [address] [place] [address] Stock Mover: Shakeel Graham MD HIV Ag/Abon 11-21-2019 HIV Ag/Ab NONREACTIVE Normal NR [facility] Comment on above: Result Comment: No l aboratory evidence of HIV infection. If acute HIV infection is suspected, consider testing for HIV-1 RNA. Performed By: #### H IVCMB, PHEP #### [place] [address] [place] [address] Stock Mover: Dom Fowler MD #### CP #### [facility] [address] [place] [address] Stock Mover: Shakeel Graham MD HIV Screenon 11-21-2019 HIV Ag/Ab NONREACTIVE NONREACTIVE [place], [place] Comment on above: No laboratory eviden ce of HIV infection. If acute HIV infection is suspected, consider testing for HIV-1 RNA. Hep C Abon 11-21-2019 Hep C Ab REACTIVE Abnormal NR [facility] Comment on above: Result Comment: The [...] Performed By: #### H IVCMB, PHEP #### [facility] [address] [place] [address] Stock Mover: Dom Fowler MD #### CP #### [facility] [address] [place] [address] [place] [address] Stock Mover: Shakeel Graham MD Profileon 0 Hep B Surf Ag NONREACTIVE Normal NR [facility] Comment on above: Performed By: #### H IVCMB, PHEP #### [place] [address] [place] [address] Stock Mover: Dom Fowler MD #### CP #### [address] [place] [address] Stock Mover: Shakeel Graham MD T.pallidum Ab Screen NONREACTIVE Normal NR [facility] Comment on above: Result Comment: T. pallidum antibodies are not detected. There is no serological evidence of infection with T. pallidum (early primary syphilis cannot be excluded). Retest in 2-4 weeks if syphilis is clinically suspect. Performed By: #### H IVCMB, PHEP #### [address] [address] Stock Mover: Dom Fowler MD #### CP #### [address] [place], [place] 1997[address] Stock Mover: Shakeel Graham MD Rubella Ab, IgG 323.1 IU/mL Normal [facility] Comment on above: Result Comment: REFERENCE RANGE: <5.0 NON-REACTIVE (non-immune) 5.0 TO 9.9 EQUIVOCAL >=10.0 REACTIVE (immune) Performed By: #### H IVCMB, PHEP #### [address] [address] Stock Mover: Dom Fowler MD #### CP #### [address] [place], [place] [phone] Stock Mover: Shakeel Graham MD HCG, Quanton 11-20-2019 HCG, Quant [address] IU/L High <5 [facility] Comment on above: Result Comment: Non-preg [...] IVCMB, PHEP #### [facility] [address] [place] [address] Stock Mover: Dom Fowler MD #### CP #### [facility] [address] [place] [address] Stock Mover: Shakeel Graham MD HCG, Quantitative, on 11-20-2019 hCG Quant [id number] High <5 IU/L [place], [place] Comment on above: Non-preg premeno <=5 Postmeno <=8 Male <=3 If HCG results do not concur with clinical observations, additional testing to confirm results is recommended. Elevated results not associated with may be found in patients with other diseases such as tumors of the germ cells (testis, ovaries, etc.), bladder, pancreas, stomach, lungs, and liver. Interpretation and review of laboratory results Abnormal [place], [place] Hepatitis C Antibodyon 11-19 Hepatitis C Ab REACTIVE Abnormal NONREACTIVE [place], [place] Comment on above: The hepatitis C [...] Interpretation and review of laboratory results Abnormal [place], [place] TYPE AND SCREENon 0 11-20-2019 ABO/Rh Positive [place], [place] Profileon 0 Abs. Basophil 0.03 k/uL Normal 0.00-0.20 [facility] Comment on above: Performed By: #### H IVCMB, PHEP #### [facility] [address] [place] [address] Stock Mover: Dom Fowler MD #### CP #### [facility] [address] [place] [address] Dr. [place] [phone] ( Stock Mover: Shakeel Graham MD Abs.Imm.Granulocyte <0.03 Normal 0.00-0.30 [facility] Comment on above: Performed By: #### H IVCMB, PHEP #### [place] [address] Stock Mover: Dom Fowler MD #### CP #### [address] [place] [phone] ( Stock Mover: Shakeel Graham MD Abs.Neutrophil (Seg) 2.95 k/uL Normal 1.50-8.10 [facility] Comment on above: Performed By: #### H IVCMB, PHEP #### [place] [address] Stock Mover: Dom Fowler MD #### CP #### [address] [place] [phone] ( Stock Mover: Shakeel Graham MD Basophils/100 WBC (Bld) 1 % Normal 0-2 [facility] Comment on above: Performed By: #### H IVCMB, PHEP #### [place] [address] Stock Mover: Dom Fowler MD #### CP #### [facility] [address] [place] [address] [place] [address] Stock Mover: Shakeel Graham MD Eosinophils (Bld) [#/Vol] 0.09 10*3/uL Normal 0.00-0.44 [facility] Comment on above: Performed By: #### H IVCMB, PHEP #### [address] [address] Stock Mover: Dom Fowler MD #### CP #### [address] [place], [place] [phone] Stock Mover: Shakeel Graham MD Eosinophils/100 WBC (Bld) 2 % Normal 1-4 [facility] Comment on above: Performed By: #### H IVCMB, PHEP #### [address] [address] Stock Mover: Dom Fowler MD #### CP #### [address] [place], [place] [phone] Stock Mover: Shakeel Graham MD Erythrocyte distribution width (RBC) [Ratio] 14.0 % Normal 11.8-14.4 [facility] Comment on above: Performed By: #### H IVCMB, PHEP #### [address] [phone] Stock Mover: Dom Fowler MD #### CP #### [address] [place], [place] [phone] Stock Mover: Shakeel Graham MD Hematocrit (Bld) [Volume fraction] 37.7 % Normal 36.3-47.1 [facility] Comment on above: Performed By: #### H IVCMB, PHEP #### [address] [address] Stock Mover: Dom Fowler MD #### CP #### [address] [place], [place] [phone] Stock Mover: Shakeel Graham MD Hemoglobin (Bld) [Mass/Vol] 11.8 g/dL Low 11.9-15.1 [facility] Comment on above: Performed By: #### H IVCMB, PHEP #### [address] [address] Stock Mover: Dom Fowler MD #### CP #### [address] [place] [phone] Stock Mover: Shakeel Graham MD Immature granulocytes (Bld) [#/Vol] 0 % Normal 0 [facility] Comment on above: Performed By: #### H IVCMB, PHEP #### [address] [address] Stock Mover: Dom Fowler MD #### CP #### [facility] [address] [place] [phone] Stock Mover: Shakeel Graham MD Lymphocytes (Bld) [#/Vol] 1.50 10*3/uL Normal 1.10-3.70 [facility] Comment on above: Performed By: #### H IVCMB, PHEP #### [address] [address] Stock Mover: Dom Fowler MD #### CP #### [facility] [address] [place] [address] [place] [phone] Stock Mover: Shakeel Graham MD Lymphocytes/100 WBC (Bld) 30 % Normal 24-43 [facility] Comment on above: Performed By: #### H IVCMB, PHEP #### [address] [address] Stock Mover: Dom Fowler MD #### CP #### [address] [place] [phone] Stock Mover: Shakeel Graham MD MCH (RBC) [Entitic mass] 26.5 pg Normal 25.2-33.5 [facility] Comment on above: Performed By: #### H IVCMB, PHEP #### [address] [address] Stock Mover: Dom Fowler MD #### CP #### [facility] [address] [place] [phone] Stock Mover: Shakeel Graham MD MCHC (RBC) [Mass/Vol] 31.3 g/dL Normal 28.4-34.8 [facility] Comment on above: Performed By: #### H IVCMB, PHEP #### [address] [address] Stock Mover: Dom Fowler MD #### CP #### [address] [place] [phone] Stock Mover: Shakeel Graham MD MCV (RBC) [Entitic vol] 84.5 fL Normal 82.6-102.9 [facility] Comment on above: Performed By: #### H IVCMB, PHEP #### [address] [address] Stock Mover: Dom Fowler MD #### CP #### [address] [place] [phone] Stock Mover: Shakeel Graham MD Monocytes (Bld) [#/Vol] 0.37 10*3/uL Normal 0.10-1.20 [facility] Comment on above: Performed By: #### H IVCMB, PHEP #### [address] [address] Stock Mover: Dom Fowler MD #### CP #### [address] [place] [phone] Stock Mover: Shakeel Graham MD Monocytes/100 WBC (Bld) 8 % Normal 3-12 [facility] Comment on above: Performed By: #### H IVCMB, PHEP #### [address] [address] Stock Mover: Dom Fowler MD #### CP #### [address] [place] [address] Stock Mover: Shakeel Graham MD Neutrophil (Seg) 59 % Normal 36-65 [facility] Comment on above: Performed By: #### H IVCMB, PHEP #### [place] [address] [place] [address] Stock Mover: Dom Fowler MD #### CP #### [facility] [address] [place], [place] [phone] Stock Mover: Shakeel Graham MD NRBC Automated 0.0 per 100 WBC Normal 0.0 [facility] Comment on above: Performed By: #### H IVCMB, PHEP #### [address] [address] Stock Mover: Dom Fowler MD #### CP #### [facility] [address] [place] [phone] Stock Mover: Shakeel Graham MD Platelet mean volume (Bld) [Entitic vol] 11.2 fL Normal 8.1-13.5 [facility] Comment on above: Performed By: #### H IVCMB, PHEP #### [address] [address] Stock Mover: Dom Fowler MD #### CP #### [facility] [address] [place] [address] [place] [phone] Stock Mover: Shakeel Graham MD Platelets (Bld) [#/Vol] 254 10*3/uL Normal 138-453 [facility] Comment on above: Performed By: #### H IVCMB, PHEP #### [address] [address] Stock Mover: Dom Fowler MD #### CP #### [facility] [address] [place] [address] [place] [phone] Stock Mover: Shakeel Graham MD RBC (Bld) [#/Vol] 4.46 10*6/uL Normal 3.95-5.11 [facility] Comment on above: Performed By: #### H IVCMB, PHEP #### [address] [address] Stock Mover: Dom Fowler MD #### CP #### [facility] [address] [place] [address] [place] [address] Stock Mover: Shakeel Graham MD WBC (Bld) [#/Vol] 5.0 10*3/uL Normal 3.5-11.3 [facility] Comment on above: Performed By: #### H IVCMB, PHEP #### [address] [address] Stock Mover: Dom Fowler MD #### CP #### [address] [place] [address] Stock Mover: Shakeel Graham MD Auto Diff Performed NOT REPORTED Normal [facility] Comment on above: Performed By: #### H IVCMB, PHEP #### [address] [address] Stock Mover: Dom Fowler MD #### CP #### [address] [place] [address] Stock Mover: Shakeel Graham MD Platelets (Bld) [#/Vol] NOT REPORTED Normal [facility] Comment on above: Performed By: #### H IVCMB, PHEP #### [address] [address] Stock Mover: Dom Fowlre MD #### CP #### [address] [place] [address] Stock Mover: Shakeel Graham MD RBC morphology finding Nom (Bld) NOT REPORTED Normal [facility] Comment on above: Performed By: #### H IVCMB, PHEP #### [address] [address] Stock Mover: Dom Fowler MD #### CP #### [address] [place] [address] Stock Mover: Shakeel Graham MD WBC Morphology NOT REPORTED Normal [facility] Comment on above: Performed By: #### H IVCMB, PHEP #### [address] [phone] Stock Mover: Dom Fowler MD #### CP #### [address] [place] [phone] Stock Mover: Shakeel Graham MD Type + Scrnon 11-19 Type + Scrn Negative Normal [facility] Comment on above: Performed By: #### H IVCMB, PHEP #### [address] [address] Stock Mover: Dom Fowler MD #### CP #### [address] [place] [phone] Stock Mover: Shakeel Graham MD [place] [facility] [place] Amphetamine(s),Ur Negative Normal NEG [facility] Comment on above: Performed By: #### H IVCMB, PHEP #### [address] [address] Stock Mover: Dom Fowler MD #### CP #### [address] [place], [place] [phone] Stock Mover: Shakeel Graham MD Barbiturate(s),Ur Negative Normal NEG [facility] Comment on above: Performed By: #### H IVCMB, PHEP #### [address] [address] Stock Mover: Dom Fowler MD #### CP #### [address] [place] [address] Stock Mover: Shakeel Graham MD Benzodiazepine(s) Negative Normal NEG [facility] Comment on above: Performed By: #### H IVCMB, PHEP #### [facility] [address] [place] [address] Stock Mover: Dom Fowler MD #### CP #### [facility] [address] [place] [address] [place], [place] [phone] Stock Mover: Shakeel Graham MD Buprenorphrine, Ur Negative Normal NEG [facility] Comment on above: Performed By: #### H IVCMB, PHEP #### [address] [address] Stock Mover: Dom Fowler MD #### CP #### [facility] [address] [place] [address] [place] [address] Stock Mover: Shakeel Graham MD Cannabinoid(s),Ur Negative Normal NEG [facility] Comment on above: Performed By: #### H IVCMB, PHEP #### [address] [address] Stock Mover: Dom Fowler MD #### CP #### [facility] [address] [place] [address] Dr[place] [phone] Stock Mover: Shakeel Graham MD Cocaine Metabolite Negative Normal [facility] Comment on above: Performed By: #### H IVCMB, PHEP #### [address] [address] Stock Mover: Dom Fowler MD #### CP #### [facility] [address] [place], [place] [address] [address] [place], [place] [phone] Stock Mover: Shakeel Graham MD Methadone Ql (U) Negative Normal NEG [facility] Comment on above: Performed By: #### H IVCMB, PHEP #### [address] [address] Stock Mover: Dom Fowler MD #### CP #### [facility] [address] [place] [address] Dr. [place], [place] [phone] Stock Mover: Shakeel Graham MD Methamphetamine, Ur Negative Normal NEG [facility] Comment on above: Performed By: #### H IVCMB, PHEP #### [facility] [address] [place] [address] Stock Mover: Dom Fowler MD #### CP #### [address] [place], [place] [phone] Stock Mover: Shakeel Graham MD Opiate(s), Ur Negative Normal NEG [facility] Comment on above: Performed By: #### H IVCMB, PHEP #### [address] [address] Stock Mover: Dom Fowler MD #### CP #### [address] [place], [place] [phone] Stock Mover: Shakeel Graham MD Oxycodone, Urine Negative Normal NEG [facility] Comment on above: Performed By: #### H IVCMB, PHEP #### [facility] [address] [place] [address] Stock Mover: Dom Fowler MD #### CP #### [address] [place], [place] [phone] Stock Mover: Shakeel Graham MD Phencyclidine, Ur Negative Normal NEG [facility] Comment on above: Performed By: #### H IVCMB, PHEP #### [address] [address] Stock Mover: Dom Fowler MD #### CP #### [address] [place], [place] [phone] Stock Mover: Shakeel Graham MD Propoxyphene,Urine Negative Normal NEG [facility] Comment on above: Performed By: #### H IVCMB, PHEP #### [address] [address] Stock Mover: Dom Fowler MD #### CP #### [facility] [address] [place] [address] [place] [address] Stock Mover: Shakeel Graham MD Tricyclic antidepressants Screen Ql (U) Negative Normal NEG [facility] Comment on above: Result Comment: Drug screen results are to be used for medical purposes only. All positive results are unconfirmed. Testing for employment or legal uses should be sent to a reference laboratory for confirmation. Performed By: #### H IVCMB, PHEP #### [address] [address] Stock Mover: Dom Fowler MD #### CP #### [address] [place], [place] [phone] Stock Mover: Shakeel Graham MD Interpretive Info NOT REPORTED Normal [facility] Comment on above: Performed By: #### H IVCMB, PHEP #### [address] [address] Stock Mover: Dom Fowler MD #### CP #### [address] [place], [place] [phone] Stock Mover: Shakeel Graham MD MDMA, Urine NOT REPORTED Normal NEG [facility] Comment on above: Performed By: #### H IVCMB, PHEP #### [address] [address] Stock Mover: Dom Fowler MD #### CP #### [facility] [address] [place] [address] Dr. [place], [place] [phone] Stock Mover: Shakeel Graham MD Urine Drug Screen, Magda grieron 11-20-2019 Amphetamine Screen, Ur Negative NEGATIVE [facility] [place] Barbiturate Screen, Ur Negative NEGATIVE [facility] [place] Benzodiazepine Screen, Urine Negative NEGATIVE [facility] [place] Buprenorphine Urine Negative NEGATIVE [facility] [place] Cannabinoid Scrn, Ur Negative NEGATIVE [facility] [place] Cocaine Metabolite, Urine Negative NEGATIVE [facility] [place] MDMA, Urine NOT REPORTED NEGATIVE [facility] [place] Methadone Screen, Urine Negative NEGATIVE [facility] [place] Methamphetamine, Urine Negative NEGATIVE [facility] [place] Opiates, Urine Negative NEGATIVE [facility] [place] Oxycodone Screen, Ur Negative NEGATIVE [facility] [place] Phencyclidine, Urine Negative NEGATIVE [facility] [place] Propoxyphene, Urine Negative NEGATIVE [facility] [place] Test Information NOT REPORTED [facility] [place] Tricyclic Antidepressants, Urine Negative NEGATIVE [facility] [place] Comment on above: Drug screen results are to be used for medical purposes only. All positive results are unconfirmed. Testing for employment or legal uses should be sent to a reference laboratory for confirmation. Chlamydia/GC DNA, Uron 06-20 Chlamydia Probe, Ur Negative Normal NEG [facility] Comment on above: Result Comment: CHLA [...] nucleic acid target. Performed By: #### U [facility] #### [address] [place] [address] Stock Mover: Dom Fowler MD Gonorrhea Probe, Ur Negative Normal NEG [facility] Comment on above: Result Comment: NEIS [...] target. Performed By: #### U CGP #### [address] [address] Stock Mover: Dom Fowler MD Cult,Urineon 06-20-2019 Cult,Urine Specimen Description .CLEAN CATCH URINE Special Requests NOT REPORTED Culture NO SIGNIFICANT GROWTH Report Status FINAL 06/20/2019 Normal [facility] Comment on above: Performed By: #### H IVCMB, PHEP #### [address] [address] Stock Mover: Dom Fowler MD #### CP #### [facility] [address] [place] [address] Stock Mover: Shakeel Graham MD HIV Ag/Abon 06-20-2019 HIV Ag/Ab NONREACTIVE Normal [facility] Comment on above: Result Comment: No l aboratory evidence of HIV infection. If acute HIV infection is suspected, consider testing for HIV-1 RNA. Performed By: #### A HCV, HIVCMB #### [address] [address] Stock Mover: Dom Fowler MD Hep C Abon 06-20-2019 Hep C Ab REACTIVE Abnormal [facility] Comment on above: Result Comment: [...] Performed By: #### A HCV, HIVCMB #### [address] [address] Stock Mover: Dom Fowler MD Profileon 9 T.pallidum Ab Screen NONREACTIVE Normal [facility] Comment on above: Result Comment: T. pallidum antibodies are not detected. There is no serological evidence of infection with T. pallidum (early primary syphilis cannot be excluded). Retest in 2-4 weeks if syphilis is clinically suspect. Performed By: #### P RENAT #### [address] [place] [address] Stock Mover: Dom Fowler MD [facility] [address] [place] [address] Dr. Felix, [place] [phone] Stock Mover: Shakeel Graham MD Hep B Surf Ag NONREACTIVE Normal NR [facility] Comment on above: Performed By: #### P RENAT #### [address] [address] Stock Mover: Dom Fowler MD [address] [place] [phone] Stock Mover: Shakeel Graham MD Rubella Ab, IgG 286.1 IU/mL Normal [facility] Comment on above: Result Comment: REFERENCE RANGE: <5.0 NON-REACTIVE (non-immune) 5.0 TO 9.9 EQUIVOCAL >=10.0 REACTIVE (immune) Performed By: #### P RENAT #### [address] [address] Stock Mover: Dom Fowler MD [address] Felix, [facility] Stock Mover: Shakeel Graham MD HCG, Quanton 06-19-2019 HCG, Quant 50900 IU/L High <5 [facility] Comment on above: Result Comment: Non-preg [...] liver. Performed By: #### B HCG #### [facility] [address] [place] [address] [place] [address] Stock Mover: Shakeel Graham MD HCG, Quantitative, on 06-19-2019 hCG Quant 59481 High <5 IU/L [place], [place] Comment on above: Non-preg premeno <=5 Postmeno <=8 Male <=3 If HCG results do not concur with clinical observations, additional testing to confirm results is recommended. Elevated results not associated with may be found in patients with other diseases such as tumors of the germ cells (testis, ovaries, etc.), bladder, pancreas, stomach, lungs, and liver. Interpretation and review of laboratory results Abnormal [place] HIV Screenon 06-19-2019 HIV Ag/Ab NONREACTIVE NONREACTIVE [place] Comment on above: No laboratory eviden ce of HIV infection. If acute HIV infection is suspected, consider testing for HIV-1 RNA. Hepatitis C Antibodyon 06-19 Hepatitis C Ab REACTIVE Abnormal NONREACTIVE [facility] [place] Comment on above: The hepatitis C [...] Interpretation and review of laboratory results Abnormal [place] PROFILE Ion 019 Basophils (Bld) [#/Vol] 10*3/uL [place] Basophils/100 WBC (Bld) 1 % 0 - 2 % [place] Differential Type NOT REPORTED [place] Eosinophils (Bld) [#/Vol] 0.09 10*3/uL [place] Eosinophils/100 WBC (Bld) 2 % 1 - 4 % [place] Erythrocyte distribution width (RBC) [Ratio] 15.7 % High 11.8 - 14.4 % [place] Hematocrit (Bld) [Volume fraction] 36.5 % 36.3 - 47.1 % [place] Hemoglobin (Bld) [Mass/Vol] 11.2 g/dL Low 11.9 - 15.1 g/dL [place] Hepatitis B Surface Ag NONREACTIVE NONREACTIVE [place] Immature granulocytes (Bld) [#/Vol] 0 % 0 [place] Immature granulocytes (Bld) [#/Vol] 10*3/uL [place] Interpretation and review of laboratory results Abnormal [place] Lymphocytes (Bld) [#/Vol] 1.98 10*3/uL [place] Lymphocytes/100 WBC (Bld) 46 % High 24 - 43 % [place] MCH (RBC) [Entitic mass] 25.6 pg 25.2 - 33.5 pg [place] MCHC (RBC) [Mass/Vol] 30.7 g/dL 28.4 - 34.8 g/dL [place] MCV (RBC) [Entitic vol] 83.3 fL 82.6 - 102.9 fL [place] Monocytes (Bld) [#/Vol] 0.37 10*3/uL [place] Monocytes/100 WBC (Bld) 9 % 3 - 12 % [place] Platelet mean volume (Bld) [Entitic vol] 11.6 fL 8.1 - 13.5 fL [place] Platelets (Bld) [#/Vol] NOT REPORTED [place] Platelets (Bld) [#/Vol] 196 10*3/uL [place] RBC (Bld) [#/Vol] 4.38 10*6/uL 3.95 - 5.1 1 m/uL [place] RBC morphology finding Nom (Bld) NOT REPORTED [place] Rubella virus IgG Ql (S) 286.1 IU/mL [place] Comment on above: REFERENCE RANGE: <5.0 NON-REACTIVE (non-immune) 5.0 TO 9.9 EQUIVOCAL >=10.0 REACTIVE (immune) Segmented neutrophils/100 WBC (Bld) 42 % 36 - 65 % [place] Segs Absolute 1.75 [place] T. pallidum, IgG NONREACTIVE NONREACTIVE [place] Comment on above: T. pallidum antibodies are not detected. There is no serological evidence of infection with T. pallidum (early primary syphilis cannot be excluded). Retest in 2-4 weeks if syphilis is clinically suspect. WBC (Bld) [#/Vol] 4.2 10*3/uL [place] WBC (Bld) [#/Vol] 0.0 10*3/uL 0.0 per 100 WBC [place], [place] WBC Morphology NOT REPORTED [place], [place] TYPE AND SCREENon 1 ABO/Rh Positive [place], [place] Profileon 9 Abs. Basophil <0.03 Normal 0.00-0.20 [facility] Comment on above: Performed By: #### P RENAT #### [address] [address] Stock Mover: Dom Fowler MD [address] [place] [phone] Stock Mover: Shakeel Graham MD Abs.Imm.Granulocyte <0.03 Normal 0.00-0.30 [facility] Comment on above: Performed By: #### P RENAT #### [address] [address] Stock Mover: Dom Fowler MD [address] [place] [phone] Stock Mover: Shakeel Graham MD Abs.Neutrophil (Seg) 1.75 k/uL Normal 1.50-8.10 [facility] Comment on above: Performed By: #### P RENAT #### [address] [address] Stock Mover: Dom Fowler MD [address] [place] [phone] Stock Mover: Shakeel Graham MD Basophils/100 WBC (Bld) 1 % Normal 0-2 [facility] Comment on above: Performed By: #### P RENAT #### [address] [address] Stock Mover: Dom Fowler MD [address] Felix [facility] Stock Mover: Shakeel Graham MD Eosinophils (Bld) [#/Vol] 0.09 10*3/uL Normal 0.00-0.44 [facility] Comment on above: Performed By: #### P RENAT #### [address] [address] Stock Mover: Dom Fowler MD [address] [place] [phone] Stock Mover: Shakeel Graham MD Eosinophils/100 WBC (Bld) 2 % Normal 1-4 [facility] Comment on above: Performed By: #### P RENAT #### [address] [address] Stock Mover: Dom Fowler MD [address] [place] [phone] Stock Mover: Shakeel Graham MD Erythrocyte distribution width (RBC) [Ratio] 15.7 % High 11.8-14.4 [facility] Comment on above: Performed By: #### P RENAT #### [address] [address] Stock Mover: Dom Fowler MD [address] [place] [phone] Stock Mover: Shakeel Graham MD Hematocrit (Bld) [Volume fraction] 36.5 % Normal 36.3-47.1 [facility] Comment on above: Performed By: #### P RENAT #### [address] [address] Stock Mover: Dom Fowler MD [address] [place] [phone] Stock Mover: Shakeel Graham MD Hemoglobin (Bld) [Mass/Vol] 11.2 g/dL Low 11.9-15.1 [facility] Comment on above: Performed By: #### P RENAT #### [address] [place] [address] Stock Mover: Dom Fowler MD [facility] [address] [place] [address] Dr. [place] [phone] Stock Mover: Shakeel Graham MD Immature granulocytes (Bld) [#/Vol] 0 % Normal 0 [facility] Comment on above: Performed By: #### P RENAT #### [address] [address] Stock Mover: Dom Fowler MD [facility] [address] [place] [address] Dr. [place] [phone] Stock Mover: Shakeel Graham MD Lymphocytes (Bld) [#/Vol] 1.98 10*3/uL Normal 1.10-3.70 [facility] Comment on above: Performed By: #### P RENAT #### [address] [address] Stock Mover: Dom Fowler MD [address] [place] [address] Stock Mover: Shakeel Graham MD Lymphocytes/100 WBC (Bld) 46 % High 24-43 [facility] Comment on above: Performed By: #### P RENAT #### [address] [address] Stock Mover: Dom Fowler MD [facility] [address] [place] [address] [place] [phone] Stock Mover: Shakeel Graham MD MCH (RBC) [Entitic mass] 25.6 pg Normal 25.2-33.5 [facility] Comment on above: Performed By: #### P RENAT #### [address] [address] Stock Mover: Dom Fowler MD [address] [place], [place] [phone] Stock Mover: Shakeel Graham MD MCHC (RBC) [Mass/Vol] 30.7 g/dL Normal 28.4-34.8 [facility] Comment on above: Performed By: #### P RENAT #### [address] [address] Stock Mover: Dom Fowler MD [address] [place] [phone] Stock Mover: Shakeel Graham MD MCV (RBC) [Entitic vol] 83.3 fL Normal 82.6-102.9 [facility] Comment on above: Performed By: #### P RENAT #### [address] [address] Stock Mover: Dom Fowler MD [address] [place] [phone] Stock Mover: Shakeel Graham MD Monocytes (Bld) [#/Vol] 0.37 10*3/uL Normal 0.10-1.20 [facility] Comment on above: Performed By: #### P RENAT #### [address] [address] Stock Mover: Dom Fowler MD [address] [place] [address] Stock Mover: Shakeel Graham MD Monocytes/100 WBC (Bld) 9 % Normal 3-12 [facility] Comment on above: Performed By: #### P RENAT #### [address] [address] Stock Mover: Dom Fowler MD [address] [place] [phone] Stock Mover: Shakeel Graham MD Neutrophil (Seg) 42 % Normal 36-65 [facility] Comment on above: Performed By: #### P RENAT #### [address] [place] [address] Stock Mover: Dom Fowler MD [address] [place] [phone] Stock Mover: Shakeel Graham MD NRBC Automated 0.0 per 100 WBC Normal 0.0 [facility] Comment on above: Performed By: #### P RENAT #### [address] [address] Stock Mover: Dom Fowler MD [address] Felix [facility] Stock Mover: Shakeel Graham MD Platelet mean volume (Bld) [Entitic vol] 11.6 fL Normal 8.1-13.5 [facility] Comment on above: Performed By: #### P RENAT #### [address] [address] Stock Mover: Dom Fowler MD [address] [place] [phone] Stock Mover: Shakeel Graham MD Platelets (Bld) [#/Vol] 196 10*3/uL Normal 138-453 [facility] Comment on above: Performed By: #### P RENAT #### [address] [address] Stock Mover: Dom Fowler MD [address] [place] [phone] Stock Mover: Shakeel Graham MD RBC (Bld) [#/Vol] 4.38 10*6/uL Normal 3.95-5.11 [facility] Comment on above: Performed By: #### P RENAT #### [address] [address] Stock Mover: Dom Fowler MD [address] [place] [address] Stock Mover: Shakeel Graham MD WBC (Bld) [#/Vol] 4.2 10*3/uL Normal 3.5-11.3 [facility] Comment on above: Performed By: #### P RENAT #### [address] [address] Stock Mover: Dom Fowler MD [address] [place] [address] Stock Mover: Shakeel Graham MD Auto Diff Performed NOT REPORTED Normal [facility] Comment on above: Performed By: #### P RENAT #### [address] [address] Stock Mover: Dom Fowler MD [address] [place] [address] Stock Mover: Shakeel Graham MD Platelets (Bld) [#/Vol] NOT REPORTED Normal [facility] Comment on above: Performed By: #### P RENAT #### [address] [address] Stock Mover: Dom Fowler MD [address] [place] [address] Stock Mover: Shakeel Graham MD RBC morphology finding Nom (Bld) NOT REPORTED Normal [facility] Comment on above: Performed By: #### P RENAT #### [address] [address] Stock Mover: Dom Fowler MD [address] [place] [address] Stock Mover: Shakeel Graham MD WBC Morphology NOT REPORTED Normal [facility] Comment on above: Performed By: #### P RENAT #### [address] [address] Stock Mover: Dom Fowler MD [address] [place] [phone] Stock Mover: Shakeel Graham MD Type + Scrnon 06-19 Type + Scrn Negative [facility] Comment on above: Performed By: #### P RTYS #### [facility] [address] [place], [place] [phone] Stock Mover: Shakeel Graham MD Toxicology Scree, Urineon Amphetamine(s),Ur Negative Normal NEG [facility] Comment on above: Performed By: #### C PDAU #### [facility] [address] [place], [place] [phone] Stock Mover: Shakeel Graham MD Barbiturate(s),Ur Negative Normal NEG [facility] Comment on above: Performed By: #### C PDAU #### [facility] [address] [place], [facility] Stock Mover: Shakeel Graham MD Benzodiazepine(s) Negative Normal [facility] Comment on above: Performed By: #### C PDAU #### [facility] [address] [place] [phone] Stock Mover: Shakeel Graham MD Buprenorphrine, Ur Negative Normal [facility] Comment on above: Performed By: #### C PDAU #### [facility] [address] [place], [facility] Stock Mover: Shakeel Graham MD Cannabinoid(s),Ur Negative Normal NEG [facility] Comment on above: Performed By: #### C PDAU #### [facility] [address] [place], [place] [phone] Stock Mover: Shakeel Graham MD Cocaine Metabolite Negative Normal [facility] Comment on above: Performed By: #### C PDAU #### [facility] [address] [place], [place] [phone] Stock Mover: Shakeel Graham MD Methadone Ql (U) Negative Normal NEG [facility] Comment on above: Performed By: #### C PDAU #### [facility] [address] [place], [place] [phone] Stock Mover: Shakeel Graham MD Methamphetamine, Ur Negative Normal NEG [facility] Comment on above: Performed By: #### C PDAU #### [facility] [address] [place], [place] [phone] Stock Mover: Shakeel Graham MD Opiate(s), Ur Negative Normal NEG [facility] Comment on above: Performed By: #### C PDAU #### [facility] [address] [place] [address] Stock Mover: Shakeel Graham MD Oxycodone, Urine Negative Normal NEG [facility] Comment on above: Performed By: #### C PDAU #### [facility] [address] [place], [place] [phone] Stock Mover: Shakeel Graham MD Phencyclidine, Ur Negative Normal [facility] Comment on above: Performed By: #### C PDAU #### [facility] [address] [place], [place] [phone] Stock Mover: Shakeel Graham MD Propoxyphene,Urine Negative Normal NEG [facility] Comment on above: Performed By: #### C PDAU #### [facility] [address] [place], [place] [phone] Stock Mover: Shakeel Graham MD Tricyclic antidepressants Screen Ql (U) Positive Abnormal NEG [facility] Comment on above: Result Comment: Drug screen results are to be used for medical purposes only. All positive results are unconfirmed. Testing for employment or legal uses should be sent to a reference laboratory for confirmation. Performed By: #### C PDAU #### [facility] [address] [place] [address] Stock Mover: Shakeel Graham MD Interpretive Info NOT REPORTED Normal [facility] Comment on above: Performed By: #### C PDAU #### [facility] [address] [place] [address] Stock Mover: Shakeel Graham MD MDMA, Urine NOT REPORTED Normal NEG [facility] Comment on above: Performed By: #### C PDAU #### [facility] [address] [place] [address] Stock Mover: Shakeel Graham MD Urine Drug Screen, Magda [...] Ag/Abon 05-10-2019 HIV Ag/Ab NONREACTIVE Normal NR [facility] Comment on above: Result Comment: No l aboratory evidence of HIV infection. If acute HIV infection is suspected, consider testing for HIV-1 RNA. Performed By: #### H IVCMB, PHEP #### [facility] [place] [address] Stock Mover: Dom Fowler MD #### CP #### [facility] [address] [place], [place] [phone] Stock Mover: Shakeel Graham MD Hepatitis Acute [facility] 05-10 Hep A Ab,IgM NONREACTIVE Normal NR [facility] Comment on above: Performed By: #### H IVCMB, PHEP #### [address] [address] Stock Mover: Dom Fowler MD #### CP #### [address] [place] [address] Stock Mover: Shakeel Graham MD Hep B Core Ab,IgM NONREACTIVE Normal [facility] Comment on above: Performed By: #### H IVCMB, PHEP #### [address] [address] Stock Mover: Dom Fowler MD #### CP #### [facility] [address] [place] [address] Dr[place], [place] [phone] Stock Mover: Shakeel Graham MD Hep B Surf Ag NONREACTIVE Normal [facility] Comment on above: Performed By: #### H IVCMB, PHEP #### [address] [address] Stock Mover: Dom Fowler MD #### CP #### [facility] [address] [place] [address] Dr[place], [place] [phone] Stock Mover: Shakeel Graham MD Hep C Ab REACTIVE Abnormal [facility] Comment on above: Result Comment: [...] Performed By: #### H IVCMB, PHEP #### [address] [place] [address] Stock Mover: Dom Fowler MD #### CP #### [facility] [address] [place] [address] [place] [phone] Stock Mover: Shakeel Graham MD Comp Metabolic Profon 2018 (cont.) Normal [facility] Comment on above: Result Comment: Aver age GFR for 20-29 years old: 116 mL/min/1.73sq m Chronic Kidney Disease: <60 mL/min/1.73sq m Kidney failure: <15 mL/min/1.73sq m eGFR calculated using average adult body mass. Additional eGFR calculator available at: http://www.[employer]/multiple_crcl_2011.htm Performed By: #### H IVCMB, PHEP #### [address] [address] Stock Mover: Dom Fowler MD #### CP #### [facility] [address] [place] [address] [place] [phone] Stock Mover: Shakeel Graham MD Albumin [Mass/Vol] 4.3 g/dL Normal 3.5-5.2 [facility] Comment on above: Performed By: #### H IVCMB, PHEP #### [address] [address] Stock Mover: Dom Fowelr MD #### CP #### [address] [place], [place] [phone] Stock Mover: Shakeel Graham MD Albumin/Globulin [Mass ratio] 1.4 {ratio} Normal 1.0-2.5 [facility] Comment on above: Performed By: #### H IVCMB, PHEP #### [address] [address] Stock Mover: Dom Fowler MD #### CP #### [facility] [address] [place], [place] [phone] Stock Mover: Shakeel Graham MD Alkaline Phos 50 U/L Normal 35-104 [facility] Comment on above: Performed By: #### H IVCMB, PHEP #### [address] [address] Stock Mover: Dom Fowler MD #### CP #### [facility] [address] [place] [address] [place], [place] [phone] Stock Mover: Shakeel Graham MD ALT [Catalytic activity/Vol] 9 U/L Normal 5-33 [facility] Comment on above: Performed By: #### H IVCMB, PHEP #### [address] [address] Stock Mover: Dom Fowler MD #### CP #### [address] [place], [place] [phone] Stock Mover: Shakeel Graham MD Anion gap [Moles/Vol] 8 mmol/L Low 9-17 [facility] Comment on above: Performed By: #### H IVCMB, PHEP #### [address] [address] Stock Mover: Dom Fowler MD #### CP #### [address] [place], [place] [phone] Stock Mover: Shakeel Graham MD AST [Catalytic activity/Vol] 15 U/L Normal <32 [facility] Comment on above: Performed By: #### H IVCMB, PHEP #### [address] [address] Stock Mover: Dom Fowler MD #### CP #### [address] [place], [place] [phone] Stock Mover: Shakeel Graham MD Bilirubin Ql (U) 0.31 mg/dL Normal 0.3-1.2 [facility] Comment on above: Performed By: #### H IVCMB, PHEP #### [facility] [address] [place] [address] Stock Mover: Dom Fowler MD #### CP #### [facility] [address] [place], [place] [phone] Stock Mover: Shakeel Graham MD BUN/CRE Ratio 20 Normal 9-20 [facility] Comment on above: Performed By: #### H IVCMB, PHEP #### [address] [address] Stock Mover: Dom Fowler MD #### CP #### [facility] [address] [place], [place] [phone] Stock Mover: Shakeel Graham MD Calcium [Mass/Vol] 9.4 mg/dL Normal 8.6-10.4 [facility] Comment on above: Performed By: #### H IVCMB, PHEP #### [address] [address] Stock Mover: Dom Fowler MD #### CP #### [facility] [address] [place] [address] Dr[place], [place] [phone] Stock Mover: Shakeel Graham MD Chloride [Moles/Vol] 102 mmol/L Normal 98-107 [facility] Comment on above: Performed By: #### H IVCMB, PHEP #### [address] [address] Stock Mover: Dom Fowler MD #### CP #### [facility] [address] [place], [place] [phone] Stock Mover: Shakeel Graham MD CO2 [Moles/Vol] 28 mmol/L Normal 20-31 [facility] Comment on above: Performed By: #### H IVCMB, PHEP #### [address] [address] Stock Mover: Dom Fowler MD #### CP #### [facility] [address] [place], [place] [phone] Stock Mover: Shakeel Graham MD Creatinine [Mass/Vol] 0.92 mg/dL High 0.50-0.90 [facility] Comment on above: Performed By: #### H IVCMB, PHEP #### [address] [address] Stock Mover: Dom Fowler MD #### CP #### [address] [place] [address] Stock Mover: Shakeel Graham MD GFR, Amer >60 Normal >60 [facility] Comment on above: Performed By: #### H IVCMB, PHEP #### [address] [address] Stock Mover: Dom Fowler MD #### CP #### [facility] [address] [place] [address] [place], [place] [phone] Stock Mover: Shakeel Graham MD GFR,non Amer >60 Normal >60 [facility] Comment on above: Performed By: #### H IVCMB, PHEP #### [address] [address] Stock Mover: Dom Fowler MD #### CP #### [facility] [address] [place], [place] [phone] Stock Mover: Shakeel Graham MD Glucose [Mass/Vol] 91 mg/dL Normal 70-99 [facility] Comment on above: Performed By: #### H IVCMB, PHEP #### [address] [address] Stock Mover: Dom Fowler MD #### CP #### [facility] [address] [place] [address] [place], [place] [phone] Stock Mover: Shakeel Graham MD Potassium [Moles/Vol] 4.3 mmol/L Normal 3.7-5.3 [facility] Comment on above: Performed By: #### H IVCMB, PHEP #### [address] [address] Stock Mover: Dom Fowler MD #### CP #### [address] [place], [place] [phone] Stock Mover: Shakeel Graham MD Protein [Mass/Vol] 7.4 g/dL Normal 6.4-8.3 [facility] Comment on above: Performed By: #### H IVCMB, PHEP #### [address] [address] Stock Mover: Dom Fowler MD #### CP #### [address] [place] [phone] Stock Mover: Shakeel Graham MD Sodium [Moles/Vol] 138 mmol/L Normal 135-144 [facility] Comment on above: Performed By: #### H IVCMB, PHEP #### [address] [address] Stock Mover: Dom Fowler MD #### CP #### [address] [place], [place] [phone] Stock Mover: Shakeel Graham MD Staging: Normal [facility] Comment on above: Result Comment: Stag e 1: Some kidney damage normal GFR Stage 2: Mild kidney damage GFR 60-89 Stage 3: Moderate kidney damage GFR 30-59 Stage 4: Severe kidney damage GFR 15-29 Stage 5: Severe kidney damage GFR <15 ESRD - chronic treatment by dialysis or transplant Performed By: #### H IVCMB, PHEP #### [address] [phone] Stock Mover: Dom Fowler MD #### CP #### [facility] [address] [place] [address] Stock Mover: Shakeel Graham MD Urea nitrogen [Mass/Vol] 18 mg/dL Normal 6-20 [facility] Comment on above: Performed By: #### H IVC, PHEP #### [facility] [address] [place], [place] [phone] Stock Mover: Dom Fowler MD #### CP #### [facility] [address] [place] [address] Stock Mover: Shakeel Graham MD [facility] Metabolic Pane [facility] 05-09-2019 Albumin [Mass/Vol] 4.3 g/dL 3.5 - 5.2 g/dL [place], [place] Albumin/Globulin [Mass ratio] 1.4 {ratio} [place], [place] ALP [Catalytic activity/Vol] 50 U/L 35 - 104 U/L [place] ALT [Catalytic activity/Vol] 9 U/L 5 - 33 U/L [place] Anion gap [Moles/Vol] 8 mmol/L Low 9 - 17 mmol/L [place] AST [Catalytic activity/Vol] 15 U/L <32 [place] Bilirubin Ql (U) 0.31 mg/dL 0.3 - 1.2 mg/dL [place], [place] Bun/Cre Ratio 20 [place], [place] Calcium [Mass/Vol] 9.4 mg/dL 8.6 - 10. 4 mg/dL [place] Chloride [Moles/Vol] 102 mmol/L 98 - 107 mmol/L [place] CO2 [Moles/Vol] 28 mmol/L 20 - 31 mmol/L [place] Creatinine [Mass/Vol] 0.92 mg/dL High 0.5 - 0.9 mg/dL [place] GFR >60 >60 mL/min [place] GFR Non- >60 >60 mL/min [place] Glucose [Mass/Vol] 91 mg/dL 70 - 99 mg/dL [place] Interpretation and review of laboratory results Abnormal [place] Potassium [Moles/Vol] 4.3 mmol/L 3.7 - 5.3 mmol/L [place] Protein [Mass/Vol] 7.4 g/dL 6.4 - 8.3 g/dL [place] Sodium [Moles/Vol] 138 mmol/L 135 - 144 mmol/L [place] Urea nitrogen [Mass/Vol] 18 mg/dL 6 - 20 mg/dL [place] Hepatitis Panel, Acuteon HAV IgM IA Qn (S) NONREACTIVE NONREACTIVE [place] Hep B Core Ab, IgM NONREACTIVE NONREACTIVE [place] Hepatitis B Surface Ag NONREACTIVE NONREACTIVE [place] Hepatitis C Ab REACTIVE Abnormal NONREACTIVE [place] Comment on above: The hepatitis C [...] Interpretation and review of laboratory results Abnormal [place] Metabolic Panelon 05-09-2019 GFR/1.73 sq M predicted among non-blacks MDRD (S/P/Bld) [Vol rate/Area] [place] Comment on above: Average GFR for 20-2 9 years old: 116 mL/min/1.73sq m Chronic Kidney Disease: <60 mL/min/1.73sq m Kidney failure: <15 mL/min/1.73sq m eGFR calculated using average adult body mass. Additional eGFR calculator available at: http://www.Nanapi/multiple_crcl_2012.htm Stage 1: Some kidney damage normal GFR Stage 2: Mild kidney damage GFR 60-89 Stage 3: Moderate kidney damage GFR 30-59 Stage 4: Severe kidney damage GFR 15-29 Stage 5: Severe kidney damage GFR <15 ESRD - chronic treatment by dialysis or transplant Drug Scr, Abuse, Uron 2017 Amphetamine(s),Ur Positive Abnormal NEG [facility] Comment on above: Result Comment: (Pos itive cutoff 1000 ng/mL) Performed By: #### D AU ####[address] [address] Barbiturate(s),Ur Negative Normal NEG [facility] Comment on above: Result Comment: (Pos itive cutoff 200 ng/mL) Performed By: #### D AU ####[address] [address] Base excess Negative Normal NEG [facility] Comment on above: Result Comment: (Pos itive cutoff 300 ng/mL) Performed By: #### D AU ####[address] [address] Benzodiazepine(s) Negative Normal NEG [facility] Comment on above: Result Comment: (Pos itive cutoff 200 ng/mL) Performed By: #### D AU ####[address] [address] Cannabinoid(s),Ur Negative Normal NEG [facility] Comment on above: Result Comment: (Pos itive cutoff 50 ng/mL) Performed By: #### D AU ####[address] [address] Interpretive Info Assay provides medical screening only. The absence of expected drug(s) and/or Normal [facility] Comment on above: Result Comment: meta bolite(s) may indicate diluted or adulterated urine, limitations of testing or timing of collection.Testing for legal purposes should be confirmed by another method. To request confirmation of test result, please call the lab within 7 days of sample submission.Performed at [address] [address] Performed By: #### D AU ####[address] [address] Opiate(s), Ur Negative Normal NEG [facility] Comment on above: Result Comment: (Pos itive cutoff 300 ng/mL) Performed By: #### D AU ####[address] [address] Oxycodone, Urine Negative Normal NEG [facility] Comment on above: Result Comment: (Pos itive cutoff 100 ng/mL) Performed By: #### D AU ####[address] [address] Phencyclidine, Ur Negative Normal NEG [facility] Comment on above: Result Comment: (Pos itive cutoff 25 ng/mL) Performed By: #### D AU ####[address] [address] Urine, methadone presence Negative Normal NEG [facility] Comment on above: Result Comment: (Pos itive cutoff 300 ng/mL) Performed By: #### D AU ####[address] [address] Buprenorphrine, Ur NOT REPORTED Normal NEG [facility] Comment on above: Performed By: #### D AU ####[address] [place] [address] MDMA, Urine NOT REPORTED Normal NEG [facility] Comment on above: Performed By: #### D AU ####[address] [place] [address] Methamphetamine, Ur NOT REPORTED Normal NEG [facility] Comment on above: Performed By: #### D AU ####[address] [address] Propoxyphene,Urine NOT REPORTED Normal NEG [facility] Comment on above: Performed By: #### D AU ####[facility] [place] [address] Urine, tricyclic antidepressants NOT REPORTED Normal NEG [facility] Comment on above: Performed By: #### D AU ####[address] [address] Lipid Profileon 11-05-2017 Cholesterol 137 mg/dL Normal <200 [facility] Comment on above: Result Comment: Chol esterol Guidelines: <200 Desirable 200-240 Borderline >240 Undesirable Performed By: #### L IPR ####[address] [address] Cholesterol to HDL Ratio 4.3 {ratio} Normal <5 [facility] Comment on above: Performed By: #### L IPR ####[facility] [place] [address] HDL Cholesterol 32 mg/dL Low >40 [facility] Comment on above: Result Comment: HDL Guidelines: <40 Undesirable 40-59 Borderline >59 Desirable Performed By: #### L IPR ####[address] [address] LDL Cholesterol 82 mg/dL Normal 0-130 [facility] Comment on above: Result Comment: LDL Guidelines: <100 Desirable 100-129 Near to/above Desirable 130-159 Borderline >159 UndesirableDirect (measured) LDL and calculated LDL are not interchangeable tests. Performed By: #### L IPR ####[address] [address] Triglyceride 113 mg/dL Normal <150 [facility] Comment on above: Result Comment: Trig lyceride Guidelines: <150 Desirable 150- 199 Borderline 200-499 High >499 Very high Based on AHA Guidelines for fasting triglyceride, June 2012.Performed at [facility] [address] [place] [address] Performed By: #### L IPR ####[facility] [place] [address] Cholesterol in VLDL mass conc NOT REPORTED Normal 10-16 [facility] Comment on above: Performed By: #### L IPR ####[facility] [place] [address] Encounters Encounter Date Encounter Type Care Provider Facility Start: 09-05-2023 End: 09-05-2023 ambulatory LUIS FELIPE HALL Not Available Start: 08-21-2023 End: 08-21-2023 ambulatory YOUSIF APARICIO Not Available Start: 08-01-2023 End: 08-01-2023 ambulatory LUIS FELIPE HALL Not Available Start: 12-21-2022 End: 12-21-2022 ambulatory IVAN CAMEJO . Facility:[facility] Start: 11-29-2022 End: 11-29-[address] RODO MENCHACA Facility:[facility] Start: 10-25-2022 [facility] Facility:[facility] Start: 10-11-2022 End: 10-11-[address] CHRISTINE SÁNCHEZ Facility:[facility] Start: 09-12-2022 End: 09-13-[address] YOUSIF APARICIO . Facility:[facility] Start: 08-19-2022 Encounter for preprocedural laboratory examination DR YOUSIF APARICIO . [facility] Start: 08-18-2022 End: 08-18-[address] YOUSIF APARICIO . Facility:[facility] Start: 08-16-2022 End: 08-17-[address] YOUSIF APARICIO . Facility:[facility] Start: 08-16-2022 End: 08-17-2022 Encounter for preprocedural laboratory examination DR YOUSIF APARICIO . Facility:[facility] Start: 08-14-2022 End: 08-15-[address] [facility] Facility:[facility] Start: 07-27-2022 End: 07-28-[address] YOUSIF APARICIO . Facility:[facility] Start: 07-09-2022 End: 07-09-[address] ELISEO HARDING Facility: Start: 12-12-2021 Telephone encounter King zee MD Work Phone: Hematology/Oncology Comment on above: Lab Orders Start: 10-28-2021 Chart abstracting King fleming MD Work Phone: Hematology/Oncology Start: 04-26-2020 End: 04-27-2020 Patient encounter procedure ANTHONY PABON [facility] Start: 04-26-2020 End: 04-26-2020 Subsequent hospital visit by physician Rochelle ALFR[facility] Start: 03-16-2020 End: 03-17-2020 Emergency department patient visit [facility] Facility:[facility] Start: 11-20-2019 End: 11-21-2019 Patient encounter procedure [facility] Start: 11-20-2019 End: 11-20-2019 Subsequent hospital visit by physician Rochelle ALFRED Laboratory Comment on above: History of miscarria ge, currently ; Amenorrhea; Positive urine test; Encounter for supervision of normal in first trimester, unspecified ; Spotting in early Start: 06-19-2019 End: 06-20-2019 Patient encounter procedure [facility] Start: 06-19-2019 End: 06-19-2019 Subsequent hospital visit by physician Rochelle ALFRED Laboratory Comment on above: Amenorrhea; Positive urine test; Encounter for supervision of normal in first trimester, unspecified ; Spotting in early Start: 05-09-2019 End: 05-10-2019 Patient encounter procedure KADI DIXON [facility] Start: 05-09-2019 End: 05-09-2019 Subsequent hospital visit by physician Rochelle ALFRED Laboratory Start: 11-05-2017 End: 11-07-2017 Evaluation and management of inpatient ANGELO SPICER [facility] Procedures Date Procedure Procedure Detail Performing Clinician Start: 04-26-2020 Acute hepatitis panel D AWN DESTINY Start: 04-26-2020 Antibody hiv-1&hiv-2 single result KADI DESTINY Start: 04-26-2020 Blood count complete automated KADI DESTINY Start: 04-26-2020 Comprehensive metabo lic panel KADI DESTINY Start: 04-26-2020 Gonadotropin chorion ic qualitative KADI DESTINY Start: 04-26-2020 Iadna hepatitis c qu ant & reverse torch straightener and heater KADI DESTINY Start: 04-26-2020 Acute hepatitis panel [...] KADI DESTINY Start: 11-20-2019 TYPE AND SCREEN KDAI DESTINY Start: 11-20-2019 Antibody screen Rochelle Hoy [...] Culture bacterial quanttative colony count urine KADI DSETINY Start: 06-19-2019 Drug screen, qualitate/multi KADI DESTINY [...] SPICER Start: 11-05-2017 Lipid panel ANGELO BARRIOS USED [employer] Start: 11-05-2017 DIET GENERAL ANGELO USED [employer] Start: 11-05-2017 FULL CODE ANGELO USED [employer] Start: 11-05-2017 IP CONSULT TO HISTOR Y [...] deficiency anemia type Expected: 12/12/2021, Expires: 02/11/2022 [facility] Work Phone: Comment on above: Expected: 12/12/2021 , Expires: 02/11/2022 Start: 05-18-2021 Influenza vaccination INFLUENZA (#1) [facility] Start: 06-26-2020 Cervical cancer screen Cervical canc er [place] Comment on above: Postponed from 01/11 (Not Indicated) Start: 06-26-2020 Screening for malign ant neoplasm of cervix Cervical cancer [place] Comment on above: Postponed from 01/11 (Not Indicated) Start: 05-18-2020 Influenza vaccination Flu vaccine (# 1) [place] Start: 11-21-2019 End: 11-21-2019 Ancillary Procedure 11/21/2019 Ancillary Procedure Obstetrics and Gynecology [facility] Start: 06-26-2019 End: 06-26-2019 Routine 06/26/2019 Routine Obstetrics and Gynecology Georgette Leung APRN - BRIAN [address] [place] [address] [phone] [facility] [employer]ACHINE Start: 05-18-2019 Influenza vaccination Flu vaccine (# 1) [place] Start: 2015 Cervical cancer screen Cervical canc er [place] Start: 2015 PAP TESTING PAP TESTING [facility] Start: 2013 DTaP/Tdap/Td vaccine (1 - Tdap) DTaP/Tdap/Td vaccine (1 - Tdap) [place] Start: 2013 Urine microalbumin profile DTAP,TDAP,TD (1 - Tdap) [facility] Start: 01-12-2012 HEPATITIS C SCREENING HEPATITIS C SC REENING [facility] Start: 01-12-2012 HIV SCREENING HIV SCREENING [facility] Start: 2009 HPV vaccine (1 - Fem larissa 3-dose series) HPV vaccine (1 - Female 3-dose series) [place] Start: 2007 Varicella Vaccine (1 of 2 - 13+ 2-dose series) Varicella Vaccine (1 of 2 - 13+ 2-dose series) [place] Start: 2006 Adult depression screening assessment DEPRESSION SCREENING [facility] Start: 2005 DTaP/Tdap/Td vaccine (1 - Tdap) DTaP/Tdap/Td vaccine (1 - Tdap) [place] Start: 2005 HPV vaccine (1 - 2-d ose series) HPV vaccine (1 - 2-dose series) [place] Start: 2005 HPV vaccine (1 - Fem larissa 2-dose series) HPV vaccine (1 - Female 2-dose series) [place] Start: 01-12-2000 Pneumococcal 0-64 ye ars Vaccine (1 of 1 - PPSV23) Pneumococcal 0-64 years Vaccine (1 of 1 - PPSV23) [place] Start: 1999 COVID-19 VACCINE (1) COVID-19 VACCIN E (1) [facility] Start: 1995 Varicella vaccine (1 of 2 - 2-dose childhood series) Varicella vaccine (1 of 2 - 2-dose childhood series) [place] End: 11-20-2019 Bacteria identified Cx Nom (U) Urine Culture Microbiology Routine Amenorrhea Positive urine test Encounter for supervision of normal in first trimester, unspecified 1 Occurrences starting 11/20/2019 until 11/20/2019 [place] Comment on above: 1 Occurrences starti ng 11/20/2019 until 11/20/2019 Bacteria identified Cx Nom (U) [place] End: 06-19-2019 Bacteria identified Cx Nom (U) Urine Culture Microbiology Routine Amenorrhea Positive urine test Encounter for supervision of normal in first trimester, unspecified 1 Occurrences starting 06/19/2019 until 06/19/2019 [place] Comment on above: 1 Occurrences starti ng 06/19/2019 until 06/19/2019 End: 11-20-2019 C.trachomatis N.gonorrhoeae DNA, Urine C.trachomatis N.gonorrhoeae DNA, Urine Microbiology Routine Amenorrhea Positive urine test Encounter for supervision of normal in first trimester, unspecified 1 Occurrences starting 11/20/2019 until 11/20/2019 [place] Comment on above: 1 Occurrences starti ng 11/20/2019 until 11/20/2019 C.trachomatis N.gonorrhoeae DNA, Urine [place] End: 06-19-2019 C.trachomatis N.gonorrhoeae DNA, Urine C.trachomatis N.gonorrhoeae DNA, Urine Microbiology Routine Amenorrhea Positive urine test Encounter for supervision of normal in first trimester, unspecified 1 Occurrences starting 06/19/2019 until 06/19/2019 [place] Comment on above: 1 Occurrences starti ng 06/19/2019 until 06/19/2019 End: 04-26-2020 Hepatitis C RNA, quantitative, PCR Hepatitis C RNA, quantitative, PCR Lab Routine Once for 1 Occurrences starting 04/26/2020 until 04/26/2020 [place] Comment on above: Once for 1 Occurrenc es starting 04/26/2020 until 04/26/2020 Hepatitis C RNA, quantitative, PCR Hepatitis C RNA, quantitative, PCR Lab Routine 04/26/2020 7:30 AM EDT [place] End: 05-09-2019 HIV Screen HIV Screen Lab Routine Once for 1 Occurrences starting 05/09/2019 until 05/09/2019 [place] Comment on above: Once for 1 Occurrenc es starting 05/09/2019 until 05/09/2019 HIV Screen HIV Screen Lab R outine 05/09/2019 2:53 PM [facility] Routine Amenorrhea Positive urine test Encounter for supervision of normal in first trimester, unspecified 11/20/2019 12:26 PM EST [facility] Payers Date Payer Category Payer Medicaid [employer] [employer] [employer] [id number] 2020-Present [phone] [place], [place] [id number] Medicaid [id number] [facility] xxxxxxxxxxxx 2016-Present [phone] [place] [id number] xxxxxxxxxxxx [id number] 1994 Unknown [id number] [id number] 1994 Unknown [id number] [id number]3 1994 Unknown [id number] 2.16.840.1.364084.3.579.2.173 1994 Unknown [id number] 2.16.840.1.844173.3.579.2.173 1994 Unknown [id number] 2.16.840.1.979726.3.579.2.173 1994 Unknown [id number] 2.16.840.1.516830.3.579.2.593 1994 Unknown [id number] 2.16840.1.248277.3.579.2.593 1994 Unknown [id number] 2.16.840.1.410985.3.579.2.593 1994 Unknown [id number] 2.16.840.1.964895.3.579.2.593 1994 Unknown [id number] 2.16.840.1.760085.3.579.2.593 1994 Unknown [id number] 2.16.840.1.035098.3.579.2.593 1994 Unknown [id number] 2.16.840.1.514119.3.579.2.593 1994 Unknown [id number] 2.16.840.1.604195.3.579.2.593 1994 Unknown [id number] 2.16.840.1.020250.3.579.2.593 1994 Unknown [id number] 2.16.840.1.014671.3.579.2.593 1994 Unknown [id number] 2.16.840.1.214181.3.579.2.125 9 1994 Unknown [id number] 2.16.840.1.884546.3.579.2.125 9 1994 Unknown [id number] 2.16.840.1.135406.3.579.2.125 9 1959 Unknown [id number] Social History Date Type Detail Facility Start: 11-05-2017 End: 10-28-2021 Tobacco smoking status NHIS Never smoker [facility] Start: 11-05-2017 End: 06-19-2019 Alcohol intake No [place] Start: 1994 Sex Assigned At Not on file [place] Start: 06-19-2019 End: 11-20-2019 Tobacco smoking status NHIS Current every day smoker [place] Start: 06-19-2019 End: 11-20-2019 Cigarettes smoked current (pack per day) - Reported [facility] Start: 11-20-2019 Alcohol intake 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 PREOPERATIVE DIAGNOSIS: Missed . POSTOPERATIVE DIAGNOSIS: Missed . ANESTHESIA: General. SURGEON: Yousif Aparicio D.O. SOCIETY EDITOR: None. BLOOD LOSS: 75 mL. URINE OUTPUT: [...] products of conception were removed using a 10-Ivorian suction curette. Excellent hemostasis was noted. The patient tolerated the procedure well. Sponge, lap, and needle counts were correct x 2. All instruments were then removed from the patient's vagina. The patient was taken to the Recovery Room in stable condition. ?? [facility] Note 12-12-2021 Telephone Encounter - Angelia Almazan - 12/12/2021 11:16 AM EDT Note Date & Type Note Facility 12-12-2021 Miscellaneous Notes Pleases sign pending new cbc order. Thanks, Angelia Almazan MA documented in this encounter [facility] Progress note 11-08-2021 Note Date & Type Note Facility 11-08-2021 Note HNO ID: [id number] Author: King Suazo MD Service: ? Author [...] shortness of breath, and is seen at [place] emergency room. Labs revealed a hemoglobin of [...] biceps/brachioradial/patella/achilles. MUSCULOSKELETAL: Neg (more content not included)... 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 Will 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 Latest Code Status on File Code Status [...] section and content) DATE CREATED AUTHOR 03/08/2018 [facility] DATE CREATED AUTHOR AUTHOR'S ORGANIZ ATION 04/08/2020 [facility] DATE CREATED AUTHOR AUTHOR'S ORGANIZ ATION 04/28/2020 [facility] DATE CREATED AUTHOR AUTHOR'S ORGANIZ ATION 12/13/2021 [facility] DATE CREATED AUTHOR AUTHOR'S ORGANIZ ATION 12/25/2022 [facility] DATE CREATED AUTHOR AUTHOR'S ORGANIZ ATION 09/07/2023 [facility] [employer] Source Comments (unrecognize d section and content) In the event this informatio n is protected by the Federal Confidentiality of Alcohol and Drug Abuse Patient Records regulations: The Federal rules restrict any use of the information to criminally investigate or prosecute any alcohol or drug abuse patient.[facility] the event this information is protected by the Federal Confidentiality of Alcohol and Drug Abuse Patient Records regulations: The Federal rules restrict any use of the information to criminally investigate or prosecute any alcohol or drug abuse patient.[facility] Reason for Visit (unrecogniz ed section and content) Reason Comments Lab Orders Care Teams (unrecognized sec tion and content) Inspector Precision Relationship Specialty Start Date End Date Rodo Menchaca [address] [place] [address] PCP - General Family Practice 11/08/21 FOR [...] BE BASED ON THE PRIMARY CLINICAL RECORDS. [employer] [facility]. provides no warranty or guarantee of the accuracy or completeness of information in this document.
--- OUTSIDE RECORDS SUMMARY | 2023-10-05 07:20 | XMS_ITS | CCD ---
Author Name Unknown Address [id number] [place] [address] Organization [facility] Care Team Providers Care Waiter/Waitress Informal Name Role Phone ANGELO SPICER Unavailable Unavailable LIGIA SPICEREEP Unavailable Unavailable ROCHELLE WILLAMS Unavailable Unavailable Rochelle Willams Primary Care Provider Lima Cornell Attending Unavailab le Rochelle Willams Primary Care Provider [phone] KADI DIXON Referring Unavailable ROCHELLE WILLAMS Primary Care Unavailable POOL, GEORGETTE E Referring Unavailable ROCHELLE WILLAMS Primary Care Unavailable POOL, GEORGETTE E Referring Unavailable ROCHELLE WILLAMS Primary Care Unavailable ANTHONY PABON Referring Unavailable ROCHELLE WILLAMS Primary Care Unavailable Unavailable Primary Care Provider UnavailRodo Carson Primary Care Provider [phone] [facility] Primary Care Unavaila ble ROBBY ., DR MENENDEZ Attending Unavailable ROBBY ., DR MENENDEZ Admitting Unavailable MEAGHAN, DR ELISEO Malone Consulting Unavailluis e MEAGHNA, DR ELISEO Malone Attending Unavailabl rickie HARDING, [...] DR RODO Dickerson Admitting Unavailable [facility] Primary Care Unavaila ble GRECHNY ., ADELITA ORELLANA Consulting Unavailluis CAMARILLO, MYLES Alex Consulting Unavailable GAYE, GURU Consulting Unavailable ALFREDDOYOSEPH, ALIX Consulting Unavailable LINA, KAMILLA Consulting Unavailable SISTER, DANIELA Consulting Unavailable ROBBY ., DR MENENDEZ Consulting Unavailable [facility] Primary Care Unavaila ble ROBBY ., DR MENENDEZ Attending Unavailable ROBBY ., DR MENENDEZ Admitting Unavailable ELENITA, NGOC Consulting Unavailable GEMBUS, AUGUSTUS Consulting Unavailable [facility] Primary Care Unavaila ble ROBBY ., DR MENENDEZ Consulting Unavailable ROBBY ., DR MENENDEZ Attending Unavailable ROBBY ., DR MENENDEZ Admitting Unavailable ZIEBER, DR CHRISTINE Benites Consulting Unavailable ROBBY ., DR MENENDEZ Consulting Unavailable 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 Hemanth Kerr CBC AUTO DIFFon 11-29-2022 BASO # 0.0 103/ul Normal 0.0-0.1 [facility] Comment on above: Performed By: #### C BC #### [facility] [address] [address] [address] Hemanth Kerr Basophils/100 WBC (Bld) 0.7 % Normal 0.2-2.0 [facility] Comment on above: Performed By: #### C BC #### [facility] [address] [address] [address] Hemanth Kerr EO # 0.2 103/ul Normal 0.0-0.7 [facility] Comment on above: Performed By: #### C BC #### [facility] [address] [address] [address] Hemanth Kerr Eosinophils/100 WBC (Bld) 3.3 % Normal 0.9-7.0 [facility] Comment on above: Performed By: #### C BC #### [facility] [address] [place] [address] Dr. Hemanth Kerr Erythrocyte distribution width (RBC) [Ratio] 14.3 % Normal 11.0-15.0 [facility] Comment on above: Performed By: #### C BC #### [facility] [address] [place] [address] Dr. Hemanth Kerr Hematocrit (Bld) [Volume fraction] 37.2 % Normal 36.0-48.0 [facility] Comment on above: Performed By: #### C BC #### [facility] [address] [place] [address] Dr. Hemanth Kerr Hemoglobin (Bld) [Mass/Vol] 11.9 g/dL Critically low 12.0-16.0 [facility] Comment on above: Performed By: #### C BC #### [facility] [address] [place] [address] Dr. Hemanth Kerr IG # 0.01 10e3/ul Normal 0.00-0.03 [facility] Comment on above: Performed By: #### C BC #### [facility] [address] [address] [address] Hemanth Kerr IG % 0.2 % Normal 0.0-0.5 [facility] Comment on above: Performed By: #### C BC #### [facility] [address] [place] [address] Dr. Hemanth Kerr LYMPH # 1.7 103/ul Normal 1.2-3.8 [facility] Comment on above: Performed By: #### C BC #### [facility] [address] [place] [address] Dr. Hemanth Kerr Lymphocytes/100 WBC (Bld) 31.3 % Normal 20.5-60.0 [facility] Comment on above: Performed By: #### C BC #### [facility] [address] [place] [address] Dr. Hemanth Kerr MANUAL DIFF REQ NO Normal [facility] Comment on above: Performed By: #### C BC #### [facility] [address] [place] [address] Dr. Hemanth Kerr MCH (RBC) [Entitic mass] 27.8 pg Normal 26.7-34.0 [facility] Comment on above: Performed By: #### C BC #### [facility] [address] [place] [address] Dr. Hemanth Kerr MCHC (RBC) [Mass/Vol] 32.0 g/dL Normal 29.9-35.2 [facility] Comment on above: Performed By: #### C BC #### [facility] [address] [place] [address] Dr. Hemanth Kerr MCV (RBC) [Entitic vol] 86.9 fL Normal 81.0-99.0 [facility] Comment on above: Performed By: #### C BC #### [facility] [address] [place] [address] Dr. Hemanth Kerr MONO # 0.4 103/ul Normal 0.3-0.8 [facility] Comment on above: Performed By: #### C BC #### [facility] [address] [place] [address] Dr. Hemanth Kerr Monocytes/100 WBC (Bld) 8.0 % Normal 1.7-12.0 [facility] Comment on above: Performed By: #### C BC #### [facility] [address] [place] [address] Dr. Hemanth Kerr NEUT # 3.1 103/ul Normal 1.4-6.5 [facility] Comment on above: Performed By: #### C BC #### [facility] [address] [place] [address] Dr. Hemanth Kerr Neutrophils/100 WBC (Bld) 56.5 % Normal 43.0-75.0 [facility] Comment on above: Performed By: #### C BC #### [facility] [address] [place] [address] Dr. Hemanth Kerr Platelet mean volume (Bld) [Entitic vol] 10.3 fL Normal 9.5-13.5 [facility] Comment on above: Performed By: #### C BC #### [facility] [address] [place] [address] Dr. Hemanth Kerr PLT 258 103/ul Normal 150-450 [facility] Comment on above: Performed By: #### C BC #### [facility] [address] [place] [address] Dr. Hemanth Kerr RBC 4.28 106/ul Normal 4.20-5.40 [facility] Comment on above: Performed By: #### C BC #### [facility] [address] [place] [address] Dr. Hemanth Kerr WBC 5.4 103/ul Normal 4.0-11.0 [facility] Comment on above: Performed By: #### C BC #### [facility] [address] [place] [address] Dr. Hemanth Kerr PROF 14(COMP METB)on 023 Albumin [Mass/Vol] 3.1 g/dL Critically low 3.4-5.0 [facility] Comment on above: Performed By: #### C MP #### [facility] [address] [place] [address] Dr. Hemanth Kerr Albumin/Globulin [Mass ratio] 1.3 {ratio} Normal [facility] Comment on above: Performed By: #### C MP #### [facility] [address] [address] [address] Hemanth Kerr ALP [Catalytic activity/Vol] 56 U/L Normal 46-116 [facility] Comment on above: Performed By: #### C MP #### [facility] [address] [address] [address] Hemanth Kerr ALT [Catalytic activity/Vol] 34 U/L Normal 14-59 [facility] Comment on above: Performed By: #### C MP #### [facility] [address] [place] [address] Dr. Hemanth Kerr Anion gap [Moles/Vol] 7.0 mmol/L Normal [facility] Comment on above: Performed By: #### C MP #### [facility] [address] [place] [address] Dr. Hemanth Kerr AST [Catalytic activity/Vol] 29 U/L Normal 15-37 [facility] Comment on above: Performed By: #### C MP #### [facility] [address] [place] [address] Dr. Hemanth Kerr Bilirubin [Mass/Vol] 0.4 mg/dL Normal 0.2-1.0 [facility] Comment on above: Performed By: #### C MP #### [facility] [address] [place] [address] Dr. Hemanth Kerr Calcium [Mass/Vol] 8.3 mg/dL Critically low 8.5-10.1 [facility] Comment on above: Performed By: #### C MP #### [facility] [address] [place] [address] Dr. Hemanth Kerr Chloride [Moles/Vol] 110 mmol/L Critically high 98-107 [facility] Comment on above: Performed By: #### C MP #### [facility] [address] [place] [address] Dr. Hemanth Kerr CO2 [Moles/Vol] 27.6 mmol/L Normal 21.0-32.0 [facility] Comment on above: Performed By: #### C MP #### [facility] [address] [place] [address] Dr. Hemanth Kerr Creatinine [Mass/Vol] 0.61 mg/dL Normal 0.55-1.02 [facility] Comment on above: Performed By: #### C MP #### [facility] [address] [address] [address] Hemanth Kerr EGFR-AF PANAMANIAN >60 Normal >=60 [facility] Comment on above: Performed By: #### C MP #### [facility] [address] [address] [address] Hemanth Kerr EGFR-NON AF PANAMANIAN >60 Normal >=60 [facility] Comment on above: Performed By: #### C MP #### [facility] [address] [address] [address] Hemanth Kerr Globulin (S) [Mass/Vol] 2.4 g/dL Normal [facility] Comment on above: Performed By: #### C MP #### [facility] [address] [place] [address] Dr. Hemanth Kerr Glucose [Mass/Vol] 110 mg/dL Critically high 74-106 [facility] Comment on above: Performed By: #### C MP #### [facility] [address] [address] [address] Hemanth Kerr Potassium [Moles/Vol] 2.6 mmol/L Critically low 3.5-5.1 [facility] Comment on above: Performed By: #### C MP #### [facility] [address] [place] [address] Dr. Hemanth Kerr Protein [Mass/Vol] 5.5 g/dL Critically low 6.4-8.2 [facility] Comment on above: Performed By: #### C MP #### [facility] [address] [address] [address] Hemanth Kerr Sodium [Moles/Vol] 142 mmol/L Normal 136-145 [facility] Comment on above: Performed By: #### C MP #### [facility] [address] [place] [address] Dr. Hemanth Kerr Urea nitrogen [Mass/Vol] 12.0 mg/dL Normal 7.0-18.0 [facility] Comment on above: Performed By: #### C MP #### [facility] [address] [address] [address] Hemanth Kerr Urea nitrogen/Creatinine [Mass ratio] 19.7 mg/mg Normal [facility] Comment on above: Performed By: #### C MP #### [facility] [address] [address] [address] Hemanth Kerr XR HIP LT 2 [...] ALIX GRANADOS Date: 2022-11-28 22:13 Normal [facility] ACETAMINOPHENon 11-28-2022 Acetaminophen [Mass/Vol] ug/mL Critically low 10.0-30.0 [facility] Comment on above: Performed By: #### C MP #### [facility] [address] [address] [address] Hemanth Kerr ACETONE SERUMon 11-28-2022 ACETONE Negative Normal NEGATIVE [facility] Comment on above: Performed By: #### P REG #### [facility] [address] [address] [address] Hemanth Kerr AMMONIAon 11-28-2022 Ammonia (P) [Moles/Vol] 24 umol/L Normal 11-32 [facility] Comment on above: Performed By: #### L ACT #### [facility] [address] [address] [address] Hemanth Kerr CBC AUTO DIFFon 11-28-2022 BASO # 0.0 103/ul Normal 0.0-0.1 [facility] Comment on above: Performed By: #### L ACT #### [facility] [address] [address] [address] Hemanth Kerr Basophils/100 WBC (Bld) 0.4 % Normal 0.2-2.0 [facility] Comment on above: Performed By: #### L ACT #### [facility] [address] [place] [address] Dr. Hemanth Kerr EO # 0.3 103/ul Normal 0.0-0.7 [facility] Comment on above: Performed By: #### L ACT #### [facility] [address] [place] [address] Dr. Hemanth Kerr Eosinophils/100 WBC (Bld) 3.1 % Normal 0.9-7.0 [facility] Comment on above: Performed By: #### L ACT #### [facility] [address] [place] [address] Dr. Hemanth Kerr Erythrocyte distribution width (RBC) [Ratio] 14.3 % Normal 11.0-15.0 [facility] Comment on above: Performed By: #### L ACT #### [facility] [address] [place] [address] Dr. Hemanth Kerr Hematocrit (Bld) [Volume fraction] 41.3 % Normal 36.0-48.0 [facility] Comment on above: Performed By: #### L ACT #### [facility] [address] [place] [address] Dr. Hemanth Kerr Hemoglobin (Bld) [Mass/Vol] 13.3 g/dL Normal 12.0-16.0 [facility] Comment on above: Performed By: #### L ACT #### [facility] [address] [place] [address] Dr. Hemanth Kerr IG # 0.02 10e3/ul Normal 0.00-0.03 [facility] Comment on above: Performed By: #### L ACT #### [facility] [address] [place] [address] Dr. Hemanth Kerr IG % 0.2 % Normal 0.0-0.5 [facility] Comment on above: Performed By: #### L ACT #### [facility] [address] [place] [address] Dr. Hemanth Kerr LYMPH # 2.4 103/ul Normal 1.2-3.8 [facility] Comment on above: Performed By: #### L ACT #### [facility] [address] [place] [address] Dr. Hemanth Kerr Lymphocytes/100 WBC (Bld) 26.3 % Normal 20.5-60.0 [facility] Comment on above: Performed By: #### L ACT #### [facility] [address] [place] [address] Dr. Hemanth Kerr MANUAL DIFF REQ NO Normal [facility] Comment on above: Performed By: #### L ACT #### [facility] [address] [place] [address] Dr. Hemanth Kerr MCH (RBC) [Entitic mass] 27.4 pg Normal 26.7-34.0 [facility] Comment on above: Performed By: #### L ACT #### [facility] [address] [place] [address] Dr. Hemanth Kerr MCHC (RBC) [Mass/Vol] 32.2 g/dL Normal 29.9-35.2 [facility] Comment on above: Performed By: #### L ACT #### [facility] [address] [place] [address] Dr. Hemanth Kerr MCV (RBC) [Entitic vol] 85.0 fL Normal 81.0-99.0 [facility] Comment on above: Performed By: #### L ACT #### [facility] [address] [place] [address] Dr. Hemanth Kerr MONO # 0.7 103/ul Normal 0.3-0.8 [facility] Comment on above: Performed By: #### L ACT #### [facility] [address] [place] [address] Dr. Hemanth Kerr Monocytes/100 WBC (Bld) 7.3 % Normal 1.7-12.0 [facility] Comment on above: Performed By: #### L ACT #### [facility] [address] [place] [address] Dr. Hemanth Kerr NEUT # 5.7 103/ul Normal 1.4-6.5 [facility] Comment on above: Performed By: #### L ACT #### [facility] [address] [address] [address] Hemanth Kerr Neutrophils/100 WBC (Bld) 62.7 % Normal 43.0-75.0 [facility] Comment on above: Performed By: #### L ACT #### [facility] [address] [address] [address] Hemanth Kerr Platelet mean volume (Bld) [Entitic vol] 10.6 fL Normal 9.5-13.5 [facility] Comment on above: Performed By: #### L ACT #### [facility] [address] [place] [address] Dr. Hemanth Kerr PLT 347 103/ul Normal 150-450 [facility] Comment on above: Performed By: #### L ACT #### [facility] [address] [place] [address] Dr. Hemanth Kerr RBC 4.86 106/ul Normal 4.20-5.40 [facility] Comment on above: Performed By: #### L ACT #### [facility] [address] [place] [address] Dr. Hemanth Kerr WBC 9.1 103/ul Normal 4.0-11.0 [facility] Comment on above: Performed By: #### L ACT #### [facility] [address] [place] [address] CSPINE WO CONon [...] KAMILLA MILLS Date: 2022-11-28 17:54 Normal [facility] CT HEAD WO CONon 11-28-2022 CT [...] KAMILLA MILLS Date: 2022-11-28 18:40 Normal [facility] CULTURE BLOODon 11-28-2022 Microscopic examination of blood, culture Culture Observations: NO GROWTH AT 5 DAYS. Normal [facility] Comment on above: Performed By: #### C BC #### [facility] [address] [address] [address] Hemanth Kerr Microscopic examination of blood, culture Culture Observations: NO GROWTH AT 5 DAYS. Normal [facility] Comment on above: Performed By: #### B [id number] #### [facility] [address] [place] [address] Dr. Hemanth Kerr Covid-19 PCR ([facility])on 11-15 SARS-CoV-2 (COVID-19) RNA ELMO+probe Ql (Unsp spec) Not detected Normal NOT DETECTED [facility] Comment on above: Result Comment: When [...] for this test is supported by the [place] of Health and Human Service's declaration that [...] used). Performed By: #### L ACT #### [facility] [address] [place] [address] Dr. Hemanth Kerr DRUG SCREEN RAPID (URINE)on 11-28-2022 AMP Positive Abnormal NEGATIVE [facility] Comment on above: Performed By: #### P REG #### [facility] [address] [place] [address] Dr. Hemanth Kerr BAR Negative Normal NEGATIVE [facility] Comment on above: Performed By: #### P REG #### [facility] [address] [place] [address] Dr. Hemanth Kerr BUP Negative Normal NEGATIVE [facility] Comment on above: Performed By: #### P REG #### [facility] [address] [place] [address] Dr. Hemanth Kerr BZO Negative Normal NEGATIVE [facility] Comment on above: Performed By: #### P REG #### [facility] [address] [place] [address] Dr. Hemanth Kerr YOLANDA Negative Normal NEGATIVE [facility] Comment on above: Performed By: #### P REG #### [facility] [address] [place] [address] Dr. Hemanth Kerr CUT-OFFS SEE BELOW Normal [facility] Comment on above: Result Comment: AMP [...] ng/mL Performed By: #### P REG #### [facility] [address] [place] [address] Dr. Hemanth Kerr DRUG CUT HEADER DRUG CLASS TEST SYSTEM CUT-OFF CONCENTRATIONS ARE FOLLOWS: Normal [facility] Comment on above: Performed By: #### P REG #### [facility] [address] [place] [address] Dr. Hemanth Kerr mAMP Positive Abnormal NEGATIVE [facility] Comment on above: Performed By: #### P REG #### [facility] [address] [place] [address] Dr. Hemanth Kerr MTD Negative Normal NEGATIVE [facility] Comment on above: Performed By: #### P REG #### [facility] [address] [place] [address] Dr. Hemanth Kerr OPI Negative Normal NEGATIVE [facility] Comment on above: Performed By: #### P REG #### [facility] [address] [place] [address] Dr. Hemanth Kerr OXY Negative Normal NEGATIVE [facility] Comment on above: Performed By: #### P REG #### [facility] [address] [place] [address] Dr. Hemanth Kerr PCP Negative Normal NEGATIVE [facility] Comment on above: Performed By: #### P REG #### [facility] [address] [place] [address] Dr. Hemanth Kerr PPX Negative Normal NEGATIVE [facility] Comment on above: Performed By: #### P REG #### [facility] [address] [address] [address] Hemanth Kerr TCA Negative Normal NEGATIVE [facility] Comment on above: Performed By: #### P REG #### [facility] [address] [place] [address] Dr. Hemanth Kerr THC Negative Normal NEGATIVE [facility] Comment on above: Performed By: #### P REG #### [facility] [address] [place] [address] Dr. Hemanth Kerr ER URINE PROFILEon 3 Bilirubin Ql (U) Negative Normal NEGATIVE [facility] Comment on above: Performed By: #### P REG #### [facility] [address] [place] [address] Dr. Hemanth Kerr Clarity (U) CLEAR Normal CLEAR [facility] Comment on above: Performed By: #### P REG #### [facility] [address] [place] [address] Dr. Hemanth Kerr Color (U) LT. YELLOW Normal YELLOW [facility] Comment on above: Performed By: #### P REG #### [facility] [address] [place] [address] Dr. Hemanth Kerr ERUAbi A micrscopic examination will be performed if indicated. Normal [facility] Comment on above: Performed By: #### P REG #### [facility] [address] [place] [address] Dr. Hemanth Kerr Glucose Ql (U) Negative Normal NEGATIVE [facility] Comment on above: Performed By: #### P REG #### [facility] [address] [place] [address] Dr. Hemanth Kerr Hemoglobin Ql (U) Negative Normal NEGATIVE [facility] Comment on above: Performed By: #### P REG #### [facility] [address] [place] [address] Dr. Hemanth Kerr Ketones Ql (U) Negative Normal NEGATIVE [facility] Comment on above: Performed By: #### P REG #### [facility] [address] [place] [address] Dr. Hemanth Kerr LEUKOCYTES Negative Normal NEGATIVE [facility] Comment on above: Performed By: #### P REG #### [facility] [address] [place] [address] Dr. Hemanth Kerr Nitrite Ql (U) Positive Abnormal NEGATIVE [facility] Comment on above: Performed By: #### P REG #### [facility] [address] [place] [address] Dr. Hemanth Kerr pH (U) 7.5 [pH] Normal 5-9 [facility] Comment on above: Performed By: #### P REG #### [facility] [address] [place] [address] Dr. Hemanth Kerr SPEC GRAVITY 1.020 Normal 1.005-<=1.025 [facility] Comment on above: Performed By: #### P REG #### [facility] [address] [place] [address] Dr. Hemanth Kerr UA PROTEIN TRACE Normal NEGATIVE/ TRACE [facility] Comment on above: Performed By: #### P REG #### [facility] [address] [place] [address] Dr. Hemanth Kerr UR MICRO IND INDICATED Normal [facility] Comment on above: Performed By: #### P REG #### [facility] [address] [place] [address] Dr. Hemanth Kerr Urobilinogen Qn (U) 1.0 {Jose'U}/dL Normal 0.2 - 1. 0 [facility] Comment on above: Performed By: #### P REG #### [facility] [address] [place] [address] Dr. Hemanth Kerr ETHANOL (BLD ALC)on 11-29-19 23 ALC NOTE NOTE: 80 mg/dl is th e legal limit for a blood alcohol level Normal [facility] Comment on above: Performed By: #### C MP #### [facility] [address] [place] [address] Dr. Hemanth Kerr Ethanol [Mass/Vol] mg/dL Normal [facility] Comment on above: Performed By: #### C MP #### [facility] [address] [place] [address] Dr. Hemanth Kerr LACTATE/LACTIC ACIDon 2022 Lactate [Moles/Vol] 0.7 mmol/L Normal 0.4-2.0 [facility] Comment on above: Performed By: #### L ACT #### [facility] [address] [address] [address] Hemanth Kerr Lactate [Moles/Vol] 9.0 mmol/L Critically high 0.4-2.0 [facility] Comment on above: Performed By: #### L ACT #### [facility] [address] [address] [address] Hemanth Kerr PH VENOUS BLOODon 11-28-2022 PCO2 VENOUS 36.6 mmHg Critically low 40.0-52.0 [facility] Comment on above: Performed By: #### P HVEN #### [facility] [address] [place] [address] Dr. Hemanth Kerr pH VENOUS 7.354 Normal 7.330-7.430 [facility] Comment on above: Performed By: #### P HVEN #### [facility] [address] [place] [address] Dr. Hemanth Kerr POINT OF CARE GLUCOSEon 11-15 Glucose [Mass/Vol] 127 mg/dL Critically high 74-106 [facility] Comment on above: Performed By: #### C BC #### [facility] [address] [place] [address] Dr. Hemanth Kerr PREG HCG QUALon 11-28-2022 , QUAL Negative Normal NEGATIVE [facility] Comment on above: Performed By: #### P REG #### [facility] [address] [place] [address] Dr. Hemanth Kerr PROF 14(COMP METB)on 023 Albumin [Mass/Vol] 3.7 g/dL Normal 3.4-5.0 [facility] Comment on above: Performed By: #### L ACT #### [facility] [address] [place] [address] Dr. Hemanth Kerr Albumin/Globulin [Mass ratio] 1.3 {ratio} Normal [facility] Comment on above: Performed By: #### L ACT #### [facility] [address] [address] [address] Hemanth Kerr ALP [Catalytic activity/Vol] 72 U/L Normal 46-116 [facility] Comment on above: Performed By: #### L ACT #### [facility] [address] [address] [address] Hemanth Kerr ALT [Catalytic activity/Vol] 42 U/L Normal 14-59 [facility] Comment on above: Performed By: #### L ACT #### [facility] [address] [address] [address] Hemanth Kerr Anion gap [Moles/Vol] 16.3 mmol/L Normal [facility] Comment on above: Performed By: #### L ACT #### [facility] [address] [place] [address] Dr. Hemanth Kerr AST [Catalytic activity/Vol] 45 U/L Critically high 15-37 [facility] Comment on above: Performed By: #### L ACT #### [facility] [address] [place] [address] Dr. Hemanth Kerr Bilirubin [Mass/Vol] 0.4 mg/dL Normal 0.2-1.0 [facility] Comment on above: Performed By: #### L ACT #### [facility] [address] [place] [address] Dr. Hemanth Kerr Calcium [Mass/Vol] 8.8 mg/dL Normal 8.5-10.1 [facility] Comment on above: Performed By: #### L ACT #### [facility] [address] [place] [address] Dr. Hemanth Kerr Chloride [Moles/Vol] 107 mmol/L Normal 98-107 [facility] Comment on above: Performed By: #### L ACT #### [facility] [address] [address] [address] Hemanth Kerr CO2 [Moles/Vol] 21.8 mmol/L Normal 21.0-32.0 [facility] Comment on above: Performed By: #### L ACT #### [facility] [address] [address] [address] Hemanth Kerr Creatinine [Mass/Vol] 1.32 mg/dL Critically high 0.55-1.02 [facility] Comment on above: Performed By: #### L ACT #### [facility] [address] [address] [address] Hemanth Kerr EGFR-AF PANAMANIAN 58 mL/min/1.73m2 Critically low >=60 [facility] Comment on above: Performed By: #### L ACT #### [facility] [address] [address] [address] Hemanth Kerr EGFR-NON AF PANAMANIAN 48 mL/min/1.73m2 Critically low >=60 [facility] Comment on above: Performed By: #### L ACT #### [facility] [address] [place] [address] Dr. Hemanht Kerr Globulin (S) [Mass/Vol] 2.9 g/dL Normal [facility] Comment on above: Performed By: #### L ACT #### [facility] [address] [address] [address] Hemanth Kerr Glucose [Mass/Vol] 143 mg/dL Critically high 74-106 [facility] Comment on above: Performed By: #### L ACT #### [facility] [address] [address] [address] Hemanth Kerr Potassium [Moles/Vol] 3.1 mmol/L Critically low 3.5-5.1 [facility] Comment on above: Performed By: #### L ACT #### [facility] [address] [address] [address] Hemanth Kerr Protein [Mass/Vol] 6.6 g/dL Normal 6.4-8.2 [facility] Comment on above: Performed By: #### L ACT #### [facility] [address] [address] [address] Hemanth Kerr Sodium [Moles/Vol] 142 mmol/L Normal 136-145 [facility] Comment on above: Performed By: #### L ACT #### [facility] [address] [address] [address] Hemanth Kerr Urea nitrogen [Mass/Vol] 17.0 mg/dL Normal 7.0-18.0 [facility] Comment on above: Performed By: #### L ACT #### [facility] [address] [place] [address] Dr. Hemanth Kerr Urea nitrogen/Creatinine [Mass ratio] 12.9 mg/mg Normal [facility] Comment on above: Performed By: #### L ACT #### [facility] [address] [place] [address] Dr. Hemanth Kerr PROTIMEon 11-28-2022 INR Coag (PPP) [Relative time] 0.97 {INR} Normal [facility] Comment on above: Performed By: #### P T, PTT #### [facility] [address] [place] [address] Dr. Hemanth Kerr INR GUIDELINES SEE BELOW Normal [facility] Comment on above: Result Comment: CHAN RED INR: 2.0 - 3.0 CONDITIONS NOT LISTED BELOW 2.5 - 3.5 FOR PROSTHETIC HEART VALVE REPLACEMENT 2.5 - 3.5 RECURRENT THROMBOSIS Performed By: #### P T, PTT #### [facility] [address] [place] [address] Dr. Hemanth Kerr PT Coag (PPP) [Time] 10.3 s Normal 9.0-11.6 [facility] Comment on above: Performed By: #### P T, PTT #### [facility] [address] [place] [address] Dr. Hemanth Kerr PTTon 11-28-2022 aPTT Coag (Bld) [Time] 25.4 s Normal 22.3-36.2 [facility] Comment on above: Performed By: #### P T, PTT #### [facility] [address] [place] [address] Dr. Hemanth Kerr SALICYLATEon 11-28-2022 SALICYLATE <2.8 Normal <=19.9 [facility] Comment on above: Performed By: #### C MP #### [facility] [address] [place] [address] Dr. Hemanth Kerr TROPONIN, HIGH SENSITIVITYon 11-28-2022 HSTROP 4.2 pg/mL Normal 4.0-51.3 [facility] Comment on above: Result Comment: CUT- OFF POINTS HAVE BEEN ESTABLISHED BASED ON THE FOURTH UNIVERSAL DEFINITIONS OF MYOCARDIAL INFARCTION. THE UPPER REFERENCE LIMIT (URL) OF TROPONIN, DEFINED THE 99TH PERCENTILE OF cTnI DISTRIBUTION IN A REFERENCE POPULATION, HAS BEEN CONFIRMED THE DECISION THRESHOLD FOR AR DIAGNOSIS. Performed By: #### C MP #### [facility] [address] [place] [address] Dr. Hemanth Kerr TSHon 11-28-2022 TSH 3.476 uIU/mL Normal 0.358-3.740 [facility] Comment on above: Performed By: #### L ACT #### [facility] [address] [place] [address] Dr. Hemanth Kerr URINE MICROSCOPIC ONLYon BACTERIA LARGE Abnormal NONE SEEN [facility] Comment on above: Performed By: #### P REG #### [facility] [address] [place] [address] Dr. Hemanth Kerr Bacteria identified Cx Nom (U) INDICATED Normal [facility] Comment on above: Performed By: #### P REG #### [facility] [address] [place] [address] Dr. Hemanth Kerr CAST SEEN Abnormal NONE SEEN [facility] Comment on above: Performed By: #### P REG #### [facility] [address] [place] [address] Dr. Hemanth Kerr COARSE GRANULAR CAST RARE Normal [facility] Comment on above: Performed By: #### P REG #### [facility] [address] [place] [address] Dr. Hemanth Kerr Crystals LM Nom (Urine sed) NONE SEEN Normal NONE SEEN [facility] Comment on above: Performed By: #### P REG #### [facility] [address] [place] [address] Dr. Hemanth Kerr Epithelial cells LM Ql (Urine sed) RARE Normal NONE SEEN /RARE [facility] Comment on above: Performed By: #### P REG #### [facility] [address] [place], [place] [id number] Dr. Hemanth Kerr MUCOUS NONE SEEN Normal NONE SEEN [facility] Comment on above: Performed By: #### P REG #### [facility] [address] [place] [address] Dr. Hemanth Kerr RBC 0-2 Normal 0-2 [facility] Comment on above: Performed By: #### P REG #### [facility] [address] [place] [address] Dr. Hemanth Kerr WBC 2-5 Abnormal NONE SEEN [facility] Comment on above: Performed By: #### P REG #### [facility] [address] [place] [address] Dr. Hemanth Kerr XR CHEST 1 Von [...] KAMILLA MILLS Date: 2022-11-28 17:39 Normal [facility] CULTURE URINEon 10-13-2022 CULTURE URINE Isolate [...] Trimethoprim/Sulfamet hoxazole >=320 R F Normal [facility] Comment on above: Performed By: #### U RCX #### [facility] [address] [address] [address] Hemanth Kerr CBC AUTO DIFFon 10-11-2022 BASO # 0.0 103/ul Normal 0.0-0.1 [facility] Comment on above: Performed By: #### C BC #### [facility] [address] [address] [address] Hemanth Kerr Basophils/100 WBC (Bld) 0.3 % Normal 0.2-2.0 [facility] Comment on above: Performed By: #### C BC #### [facility] [address] [address] [address] Hemanth Kerr EO # 0.0 103/ul Normal 0.0-0.7 [facility] Comment on above: Performed By: #### C BC #### [facility] [address] [place] [address] Dr. Hemanth Kerr Eosinophils/100 WBC (Bld) 0.4 % Critically low 0.9-7.0 [facility] Comment on above: Performed By: #### C BC #### [facility] [address] [place] [address] Dr. Hemanth Kerr Erythrocyte distribution width (RBC) [Ratio] 12.2 % Normal 11.0-15.0 [facility] Comment on above: Performed By: #### C BC #### [facility] [address] [place] [address] Dr. Hemanth Kerr Hematocrit (Bld) [Volume fraction] 38.6 % Normal 36.0-48.0 [facility] Comment on above: Performed By: #### C BC #### [facility] [address] [place] [address] Dr. Hemanth Kerr Hemoglobin (Bld) [Mass/Vol] 12.0 g/dL Normal 12.0-16.0 [facility] Comment on above: Performed By: #### C BC #### [facility] [address] [place] [address] Dr. Hemanth Kerr IG # 0.07 10e3/ul Critically high 0.00-0.03 [facility] Comment on above: Performed By: #### C BC #### [facility] [address] [place] [address] Dr. Hemanth Kerr IG % 0.7 % Critically high 0.0-0.5 [facility] Comment on above: Performed By: #### C BC #### [facility] [address] [place] [address] Dr. Hemanth Kerr LYMPH # 1.2 103/ul Normal 1.2-3.8 [facility] Comment on above: Performed By: #### C BC #### [facility] [address] [place] [address] Dr. Hemanth Kerr Lymphocytes/100 WBC (Bld) 12.1 % Critically low 20.5-60.0 [facility] Comment on above: Performed By: #### C BC #### [facility] [address] [place] [address] Dr. Hemanth Kerr MANUAL DIFF REQ NO Normal [facility] Comment on above: Performed By: #### C BC #### [facility] [address] [place] [address] Dr. Hemanth Kerr MCH (RBC) [Entitic mass] 28.0 pg Normal 26.7-34.0 [facility] Comment on above: Performed By: #### C BC #### [facility] [address] [place] [address] Dr. Hemanth Kerr MCHC (RBC) [Mass/Vol] 31.1 g/dL Normal 29.9-35.2 [facility] Comment on above: Performed By: #### C BC #### [facility] [address] [place] [address] Dr. Hemanth Kerr MCV (RBC) [Entitic vol] 90.2 fL Normal 81.0-99.0 [facility] Comment on above: Performed By: #### C BC #### [facility] [address] [place] [address] Dr. Hemanth Kerr MONO # 0.7 103/ul Normal 0.3-0.8 [facility] Comment on above: Performed By: #### C BC #### [facility] [address] [address] [address] Hemanth Kerr Monocytes/100 WBC (Bld) 6.9 % Normal 1.7-12.0 [facility] Comment on above: Performed By: #### C BC #### [facility] [address] [address] [address] Hemanth eKrr NEUT # 8.1 103/ul Critically high 1.4-6.5 [facility] Comment on above: Performed By: #### C BC #### [facility] [address] [address] [address] Hemanth Kerr Neutrophils/100 WBC (Bld) 79.6 % Critically high 43.0-75.0 [facility] Comment on above: Performed By: #### C BC #### [facility] [address] [place] [address] Dr. Hemanth Kerr Platelet mean volume (Bld) [Entitic vol] 10.8 fL Normal 9.5-13.5 [facility] Comment on above: Performed By: #### C BC #### [facility] [address] [address] [address] Hemanth Kerr PLT 452 103/ul Critically high 150-450 [facility] Comment on above: Performed By: #### C BC #### [facility] [address] [address] [address] Hemanth Kerr RBC 4.28 106/ul Normal 4.20-5.40 [facility] Comment on above: Performed By: #### C BC #### [facility] [address] [address] [address] Hemanth Kerr WBC 10.1 103/ul Normal 4.0-11.0 [facility] Comment on above: Performed By: #### C BC #### [facility] [address] [place] [address] ABD/PELVIS WO CONon [...] by: CHRISTINE SÁNCHEZ Date: 2022-10-11 14:45 Normal [facility] ER URINE PROFILEon 3 Bilirubin Ql (U) Negative Normal NEGATIVE [facility] Comment on above: Performed By: #### L ACT #### [facility] [address] [place] [address] Dr. Hemanth Kerr Clarity (U) CLEAR Normal CLEAR [facility] Comment on above: Performed By: #### L ACT #### [facility] [address] [address] [address] Hemanth Kerr Color (U) LT. YELLOW Normal YELLOW [facility] Comment on above: Performed By: #### L ACT #### [facility] [address] [place] [address] Dr. Hemanth Kerr ERUAHD A micrscopic examination will be performed if indicated. Normal [facility] Comment on above: Performed By: #### L ACT #### [facility] [address] [address] [address] Hemanth Kerr Glucose Ql (U) Negative Normal NEGATIVE [facility] Comment on above: Performed By: #### L ACT #### [facility] [address] [address] [address] Hemanth Kerr Hemoglobin Ql (U) LARGE Abnormal NEGATIVE [facility] Comment on above: Performed By: #### L ACT #### [facility] [address] [address] [address] Hemanth Kerr Ketones Ql (U) Negative Normal NEGATIVE [facility] Comment on above: Performed By: #### L ACT #### [facility] [address] [place] [address] Dr. Hemanth Kerr LEUKOCYTES SMALL Abnormal NEGATIVE [facility] Comment on above: Performed By: #### L ACT #### [facility] [address] [place] [address] Dr. Hemanth Kerr Nitrite Ql (U) Negative Normal NEGATIVE [facility] Comment on above: Performed By: #### L ACT #### [facility] [address] [address] [address] Hemanth Kerr pH (U) 6.5 [pH] Normal 5-9 [facility] Comment on above: Performed By: #### L ACT #### [facility] [address] [place] [address] Dr. Hemanth Kerr Protein (U) [Mass/Vol] 30 mg/dL Abnormal NEGATIVE/ TRACE [facility] Comment on above: Performed By: #### L ACT #### [facility] [address] [place] [address] Dr. Hemanth Kerr SPEC GRAVITY <=1.005 Abnormal 1.005-<=1.025 [facility] Comment on above: Performed By: #### L ACT #### [facility] [address] [place] [address] Dr. Hemanth Kerr UR MICRO IND INDICATED Normal [facility] Comment on above: Performed By: #### L ACT #### [facility] [address] [address] [address] Hemanth Kerr Urobilinogen Qn (U) 1.0 {Jose'U}/dL Normal 0.2 - 1. 0 [facility] Comment on above: Performed By: #### L ACT #### [facility] [address] [address] [address] Hemanth Kerr PREG HCG QUALon 10-11-2022 , QUAL Negative Normal NEGATIVE [facility] Comment on above: Performed By: #### P REG #### [facility] [address] [address] [address] Hemanth Kerr PROF CHEM 8 (BAS METB)on Anion gap [Moles/Vol] 9.4 mmol/L Normal [facility] Comment on above: Performed By: #### L ACT #### [facility] [address] [place] [address] Dr. Hemanth Kerr Calcium [Mass/Vol] 8.8 mg/dL Normal 8.5-10.1 [facility] Comment on above: Performed By: #### L ACT #### [facility] [address] [address] [address] Hemanth Kerr Chloride [Moles/Vol] 97 mmol/L Critically low 98-107 [facility] Comment on above: Performed By: #### L ACT #### [facility] [address] [place] [address] Dr. Hemanth Kerr CO2 [Moles/Vol] 32.4 mmol/L Critically high 21.0-32.0 [facility] Comment on above: Performed By: #### L ACT #### [facility] [address] [place] [address] Dr. Hemanth Kerr Creatinine [Mass/Vol] 0.65 mg/dL Normal 0.55-1.02 [facility] Comment on above: Performed By: #### L ACT #### [facility] [address] [place] [address] Dr. Hemanth Kerr EGFR-AF PANAMANIAN >60 Normal >=60 [facility] Comment on above: Performed By: #### L ACT #### [facility] [address] [address] [address] Hemanth Kerr EGFR-NON AF PANAMANIAN >60 Normal >=60 [facility] Comment on above: Performed By: #### L ACT #### [facility] [address] [place] [address] Dr. Hemanth Kerr Glucose [Mass/Vol] 117 mg/dL Critically high 74-106 [facility] Comment on above: Performed By: #### L ACT #### [facility] [address] [address] [address] Hemanth Kerr Potassium [Moles/Vol] 2.8 mmol/L Critically low 3.5-5.1 [facility] Comment on above: Performed By: #### L ACT #### [facility] [address] [place] [address] Dr. Hemanth Kerr Sodium [Moles/Vol] 135 mmol/L Critically low 136-145 [facility] Comment on above: Performed By: #### L ACT #### [facility] [address] [place] [address] Dr. Hemanth Kerr Urea nitrogen [Mass/Vol] 8.0 mg/dL Normal 7.0-18.0 [facility] Comment on above: Performed By: #### L ACT #### [facility] [address] [place] [address] Dr. Hemanth Kerr Urea nitrogen/Creatinine [Mass ratio] 12.3 mg/mg Normal [facility] Comment on above: Performed By: #### L ACT #### [facility] [address] [place] [address] Dr. Hemanth Kerr URINE MICROSCOPIC ONLYon BACTERIA SMALL Abnormal NONE SEEN [facility] Comment on above: Performed By: #### L ACT #### [facility] [address] [place], [place] [id number] Dr. Hemanth Kerr Bacteria identified Cx Nom (U) INDICATED Normal [facility] Comment on above: Performed By: #### L ACT #### [facility] [address] [place] [address] Dr. Hemanth Kerr CAST NONE SEEN Normal NONE SEEN [facility] Comment on above: Performed By: #### L ACT #### [facility] [address] [place] [address] Dr. Hemanth Kerr Crystals LM Nom (Urine sed) NONE SEEN Normal NONE SEEN [facility] Comment on above: Performed By: #### L ACT #### [facility] [address] [place] [address] Dr. Hemanth Kerr Epithelial cells LM Ql (Urine sed) FEW Abnormal NONE SEEN /RARE [facility] Comment on above: Performed By: #### L ACT #### [facility] [address] [place] [address] Dr. Hemanth Kerr MUCOUS NONE SEEN Normal NONE SEEN [facility] Comment on above: Performed By: #### L ACT #### [facility] [address] [place] [address] Dr. Hemanth Kerr RBC 0-2 Normal 0-2 [facility] Comment on above: Performed By: #### L ACT #### [facility] [address] [place] [address] Dr. Hemanth Kerr WBC 10-20 Abnormal NONE SEEN [facility] Comment on above: Performed By: #### L ACT #### [facility] [address] [place] [address] Dr. Hemanth Kerr PREG QUANT HCGon 09-12-2022 HCG QUANT 66 mIU/mL Normal [facility] Comment on above: Performed By: #### C MP #### [facility] [address] [place] [address] Dr. Hemanth Kerr HCG RANGE SEE BELOW Normal [facility] Comment on above: Result Comment: 5-50 0.2-1 WEEK 50-500 1-2 WEEKS 100-5,000 2-3 WEEKS 500-10,000 3-4 WEEKS 1,000-50,000 4-5 WEEKS 10,000-100,000 5-6 WEEKS 15,000-200,000 6-8 WEEKS 10,000-100,000 2-3 MONTHS Performed By: #### C MP #### [facility] [address] [place] [address] Dr. Hemanth Kerr CBC AUTO DIFFon 08-16-2022 BASO # 0.0 103/ul Normal 0.0-0.1 [facility] Comment on above: Performed By: #### L ACT #### [facility] [address] [place] [address] Dr. Hemanth Kerr Basophils/100 WBC (Bld) 0.6 % Normal 0.2-2.0 [facility] Comment on above: Performed By: #### L ACT #### [facility] [address] [address] [address] Hemanth Kerr EO # 0.1 103/ul Normal 0.0-0.7 [facility] Comment on above: Performed By: #### L ACT #### [facility] [address] [place] [address] Dr. Hemanth Kerr Eosinophils/100 WBC (Bld) 1.3 % Normal 0.9-7.0 [facility] Comment on above: Performed By: #### L ACT #### [facility] [address] [place] [address] Dr. Hemanth Kerr Erythrocyte distribution width (RBC) [Ratio] 12.0 % Normal 11.0-15.0 [facility] Comment on above: Performed By: #### L ACT #### [facility] [address] [place] [address] Dr. Hemanth Kerr Hematocrit (Bld) [Volume fraction] 35.6 % Critically low 36.0-48.0 [facility] Comment on above: Performed By: #### L ACT #### [facility] [address] [place] [address] Dr. Hemanth Kerr Hemoglobin (Bld) [Mass/Vol] 12.4 g/dL Normal 12.0-16.0 [facility] Comment on above: Performed By: #### L ACT #### [facility] [address] [place] [address] Dr. Hemanth Kerr IG # 0.02 10e3/ul Normal 0.00-0.03 [facility] Comment on above: Performed By: #### L ACT #### [facility] [address] [place] [address] Dr. Hemanth Kerr IG % 0.3 % Normal 0.0-0.5 [facility] Comment on above: Performed By: #### L ACT #### [facility] [address] [place] [address] Dr. Hemanth Kerr LYMPH # 1.9 103/ul Normal 1.2-3.8 [facility] Comment on above: Performed By: #### L ACT #### [facility] [address] [place] [address] Dr. Hemanth Kerr Lymphocytes/100 WBC (Bld) 27.5 % Normal 20.5-60.0 [facility] Comment on above: Performed By: #### L ACT #### [facility] [address] [place] [address] Dr. Hemanth Kerr MANUAL DIFF REQ NO Normal [facility] Comment on above: Performed By: #### L ACT #### [facility] [address] [place] [address] Dr. Hemanth Kerr MCH (RBC) [Entitic mass] 29.6 pg Normal 26.7-34.0 [facility] Comment on above: Performed By: #### L ACT #### [facility] [address] [place] [address] Dr. Hemanth Kerr MCHC (RBC) [Mass/Vol] 34.8 g/dL Normal 29.9-35.2 [facility] Comment on above: Performed By: #### L ACT #### [facility] [address] [place] [address] Dr. Hemanth Kerr MCV (RBC) [Entitic vol] 85.0 fL Normal 81.0-99.0 [facility] Comment on above: Performed By: #### L ACT #### [facility] [address] [place] [address] Dr. Hemanth Kerr MONO # 0.4 103/ul Normal 0.3-0.8 [facility] Comment on above: Performed By: #### L ACT #### [facility] [address] [place] [address] Dr. Hemanth Kerr Monocytes/100 WBC (Bld) 6.3 % Normal 1.7-12.0 [facility] Comment on above: Performed By: #### L ACT #### [facility] [address] [address] [address] Hemanth Kerr NEUT # 4.5 103/ul Normal 1.4-6.5 [facility] Comment on above: Performed By: #### L ACT #### [facility] [address] [address] [address] Hemanth Kerr Neutrophils/100 WBC (Bld) 64.0 % Normal 43.0-75.0 [facility] Comment on above: Performed By: #### L ACT #### [facility] [address] [place] [address] Dr. Hemanth Kerr Platelet mean volume (Bld) [Entitic vol] 10.6 fL Normal 9.5-13.5 [facility] Comment on above: Performed By: #### L ACT #### [facility] [address] [place] [address] Dr. Hemanth Kerr PLT 247 103/ul Normal 150-450 [facility] Comment on above: Performed By: #### L ACT #### [facility] [address] [place] [address] Dr. Hemanth Kerr RBC 4.19 106/ul Critically low 4.20-5.40 [facility] Comment on above: Performed By: #### L ACT #### [facility] [address] [place] [address] Dr. Hemanth Kerr WBC 7.0 103/ul Normal 4.0-11.0 [facility] Comment on above: Performed By: #### L ACT #### [facility] [address] [place] [address] Dr. Hemanth Kerr Covid-19 PCR ([facility])on 07-20 SARS-CoV-2 (COVID-19) RNA ELMO+probe Ql (Unsp spec) Not detected Normal NOT DETECTED [facility] Comment on above: Result Comment: This test is not yet approved or cleared by the [place] FDA. When there are no FDA-approved or cleared tests available, and other criteria are met, FDA can make tests available under an emergency access mechanism called an Emergency Use Authorization (EUA). The EUA for this test is supported by the [employer] Operator of Health and Human Service's (HHS's) [...] SARS-CoV-2. Performed By: #### C MP #### [facility] [address] [place] [address] Dr. Hemanth Kerr PREG QUANT HCGon 08-16-2022 HCG QUANT [id number] mIU/mL Normal [facility] Comment on above: Performed By: #### P REG #### [facility] [address] [place] [address] Dr. Hemanth Kerr HCG RANGE SEE BELOW Normal [facility] Comment on above: Result Comment: 5-50 0.2-1 WEEK 50-500 1-2 WEEKS 100-5,000 2-3 WEEKS 500-10,000 3-4 WEEKS 1,000-50,000 4-5 WEEKS 10,000-100,000 5-6 WEEKS 15,000-200,000 6-8 WEEKS 10,000-100,000 2-3 MONTHS Performed By: #### P REG #### [facility] [address] [place] [address] Dr. Hemanth Kerr PREG QUANT HCGon 08-14-2022 HCG QUANT 41703 mIU/mL Normal [facility] Comment on above: Performed By: #### P REG #### [facility] [address] [place] [address] Dr. Hemanth Kerr HCG RANGE SEE BELOW Normal [facility] Comment on above: Result Comment: 5-50 0.2-1 WEEK 50-500 1-2 WEEKS 100-5,000 2-3 WEEKS 500-10,000 3-4 WEEKS 1,000-50,000 4-5 WEEKS 10,000-100,000 5-6 WEEKS 15,000-200,000 6-8 WEEKS 10,000-100,000 2-3 MONTHS Performed By: #### P REG #### [facility] [address] [address] [address] Hemanth Kerr US PREG TVon 08-14-2022 [...] by: CHRISTINE SÁNCHEZ Date: 2022-08-14 16:22 Normal [facility] US PREG TVon 07-27-2022 US PREG [...] by: CHRISTINE SÁNCHEZ Date: 2022-07-27 17:04 Normal [facility] XR CHEST 1 Von 07-09-2022 XR [...] by: FELIX WEBB Date: 2022-07-09 12:06 Normal [facility] ([id number]) 1995 F Date Time Provider Department 12/12/21 KING SUAZO During your visit today, we recorded the following information about you: Angelia Almazan 12/12/2021 11:16 AM Signed Pleases sign pending new cbc order. Thanks, Angelia Almazan MA Allergies As of Date: 12/12/2021 (No Known Allergies) Date Reviewed: 12/12/2021 Reviewed by: Jasmin Silverio APRN.[facility] - Fully Assessed Reason for Visit: Lab Orders [168] Primary Visit Diagnosis:Iron deficiency anemia, unspecified iron deficiency anemia type [D50.9] Order(s):CBC + DIFF [SQCBCDIF] Order #: [id number] FUTURE Prescriptions as of 12/12/2021 - gabapentin (NEURONTIN) 400 mg capsule Take by mouth. - Polysaccharide Iron Complex 180 mg iron cap Take by mouth. - aspirin 81 mg cap Take 81 mg by mouth once daily. - ONDANSETRON HCL ORAL Take 4 mg by mouth as needed. Problem List As Of Date: 12/12/2021 (None) Encounter Status:Closed by JASMIN SILVERIO on 12/12/21 Normal [facility]E ERVIN ([id number]) 1995 F Date Time Provider Department 11/10/21 [...] B12 is slightly low. Options would be [id number] B12 tablets 2 mg daily or start a monthly injection. Thanks, MELANY De La O RN 11/10/2021 3:40 PM Signed Informed pt of Dr Suazo's message. Pt verbalized understanding and states [facility] told her only 2 doses of [...] JENNYFER DE LA O on 11/10/21 [facility] CNOVSPon 11-08-2021 CNOVSP Visit (SP) Office (HEMASA) NOE ERVIN ([id number]) 1995 F Date Time Provider Department 11/08/21 [...] shortness of breath, and is seen at [place] emergency room. Labs revealed a hemoglobin of [...] changes, r (more content not included)... Normal [facility] Comp Metabolic Panelon 11-08 Albumin [Mass/Vol] 3.6 g/dL Low 3.9-4.9 [facility] Comment on above: Performed By: #### S ERFOL, IRON, B12, FERR #### [address] [place], [place] [address] ALP [Catalytic activity/Vol] 79 U/L Normal 34-123 [facility] Comment on above: Performed By: #### S ERFOL, IRON, B12, FERR #### [facility] [address] [place], [place] [address] ALT [Catalytic activity/Vol] 8 U/L Normal 7-38 [facility] Comment on above: Performed By: #### S ERFOL, IRON, B12, FERR #### [facility] [address] [place], [place] [address] Anion gap [Moles/Vol] 9 mmol/L Normal 9-18 [facility] Comment on above: Performed By: #### S ERFOL, IRON, B12, FERR #### [facility] [address] [place], [place] [address] AST [Catalytic activity/Vol] 13 U/L Normal 13-35 [facility] Comment on above: Performed By: #### S ERFOL, IRON, B12, FERR #### [address] [place] [address] Bilirubin [Mass/Vol] 0.2 mg/dL Normal 0.2-1.3 [facility] Comment on above: Performed By: #### S ERFOL, IRON, B12, FERR #### [place] [address] Calcium [Mass/Vol] 9.3 mg/dL Normal 8.5-10.2 [facility] Comment on above: Performed By: #### S ERFOL, IRON, B12, FERR #### [place] [address] Chloride [Moles/Vol] 102 mmol/L Normal 97-105 [facility] Comment on above: Performed By: #### S ERFOL, IRON, B12, FERR #### [place] [address] CO2 [Moles/Vol] 23 mmol/L Normal 22-30 [facility] Comment on above: Performed By: #### S ERFOL, IRON, B12, FERR #### [place] [address] Creatinine [Mass/Vol] 0.55 mg/dL Low 0.58-0.96 [facility] Comment on above: Performed By: #### S ERFOL, IRON, B12, FERR #### [place] [address] eGFR- Amer. >60 Normal [facility] Comment on above: Performed By: #### S ERFOL, IRON, B12, FERR #### [place] [address] eGFR-All Other Races >60 Normal [facility] Comment on above: Result Comment: eGFR [...] ERFOL, IRON, B12, FERR #### [facility] [address] [place] [address] Glucose [Mass/Vol] 96 mg/dL Normal 74-99 [facility] Comment on above: Result Comment: The [place] Diabetes Association (ADA) provides guidance for cutoff [...] Standards of Medical Care in Diabetes 2016, [place] Diabetes Association. Diabetes Care. 2016.39(Suppl 1). Performed By: #### S ERFOL, IRON, B12, FERR #### [facility] [address] [place], [place] [address] Potassium [Moles/Vol] 3.3 mmol/L Low 3.7-5.1 [facility] Comment on above: Performed By: #### S ERFOL, IRON, B12, FERR #### [address] [place], [place] [address] Protein [Mass/Vol] 6.3 g/dL Normal 6.3-8.0 [facility] Comment on above: Performed By: #### S ERFOL, IRON, B12, FERR #### [address] [address] Sodium [Moles/Vol] 134 mmol/L Low 136-144 [facility] Comment on above: Performed By: #### S ERFOL, IRON, B12, FERR #### [place] [address] Urea nitrogen [Mass/Vol] 4 mg/dL Low 7-21 [facility] Comment on above: Performed By: #### S ERFOL, IRON, B12, FERR #### [place] [id number] Ferritinon 11-08-2021 Ferritin [Mass/Vol] 203.0 ng/mL Normal 14.7-205.1 [facility] Comment on above: Performed By: #### S ERFOL, IRON, B12, FERR #### [address] [address] Folate, Serumon 11-08-2021 Folate [Mass/Vol] 8.5 ng/mL Normal >4.7 [facility] Comment on above: Performed By: #### S ERFOL, IRON, B12, FERR #### [address] [address] Iron and TIBCon 11-08-2021 Iron [Mass/Vol] 93 ug/dL Normal 41-186 [facility] Comment on above: Performed By: #### S ERFOL, IRON, B12, FERR #### [address] [address] TIBC 407 ug/dL High 232-386 [facility] Comment on above: Performed By: #### S ERFOL, IRON, B12, FERR #### [facility] [address] [place] [id number] Transferrin Saturatn 23 % Normal 15-57 [facility] Comment on above: Performed By: #### S ERFOL, IRON, B12, FERR #### [facility] [address] [place], [place] [address] Remote CBCDIF (for [facility] use o nly)on 11-08-2021 Abs Baso <0.03 Normal <0.11 [facility] Abs [place] 0.57 k/uL Normal <0.87 [facility] Abs Neut 4.67 k/uL Normal 1.45-7.50 [facility] Absolute nRBC <0.01 Normal <0.01 [facility] Basophils/100 WBC (Bld) 0.3 % Normal [facility] DTYPE Auto Diff Normal [facility] Eosinophils (Bld) [#/Vol] 0.05 10*3/uL Normal <0.46 [facility] Eosinophils/100 WBC (Bld) 0.8 % Normal [facility] Erythrocyte distribution width (RBC) [Ratio] 29.9 % High 11.5-15.0 [facility] Hematocrit (Bld) [Volume fraction] 32.6 % Low 36.0-46.0 [facility] Hemoglobin (Bld) [Mass/Vol] 10.1 g/dL Low 11.5-15.5 [facility] Lymphocytes (Bld) [#/Vol] 1.25 10*3/uL Normal 1.00-4.00 [facility] Lymphocytes/100 WBC (Bld) 19.1 % Normal [facility] MCH 25.1 pG Low 26.0-34.0 [facility] MCHC (RBC) [Mass/Vol] 31.0 g/dL Normal 30.5-36.0 [facility] MCV (RBC) [Entitic vol] 81.1 fL Normal 80.0-100.0 [facility] Monocytes/100 WBC (Bld) 8.7 % Normal [facility] Neutrophils/100 WBC (Bld) 71.1 % Normal [facility] NRBCs 0.0 /100 WBC Normal 0 [facility] Platelet mean volume (Bld) [Entitic vol] 10.3 fL Normal 9.0-12.7 [facility] Platelets (Bld) [#/Vol] 223 10*3/uL Normal 150-400 [facility] Comment on above: Result Comment: Resu lt checked and verified Sample checked for a clot. RBC (Bld) [#/Vol] 4.02 10*6/uL Normal 3.90-5.20 [facility] WBC (Bld) [#/Vol] 6.56 10*3/uL Normal 3.70-11.00 [facility] Reticulocyteon 11-08-2021 Abs Retic 0.140 M/uL High 0.0180-0.1000 [facility] Comment on above: Performed By: #### S ERFOL, IRON, B12, FERR #### [place] [address] Retic% 3.5 % High 0.4-2.0 [facility] Comment on above: Performed By: #### S ERFOL, IRON, B12, FERR #### [address] [place] [id number] Vitamin B12on 11-08-2021 Cobalamin (Vitamin B12) [Mass/Vol] 218 pg/mL Low 232-1245 [facility] Comment on above: Performed By: #### S ERFOL, IRON, B12, FERR #### [address] [place] [address] HCV RNA,Quant,PCRon 04-27-20 20 HCV RNA,Quant,PCR Specimen [...] Report Status FINAL 04/27/2020 Normal [facility] Comment on above: Performed By: #### H IVCMB, PHEP #### [address] [address] In House Cra: Dom Fowler MD #### CP #### [facility] [address] [place] [address] Dr. [id number] In House Cra: Shakeel Graham MD [facility] 04-26-2020 Erythrocyte distribution width (RBC) [Ratio] 14.7 % High 11.8-14.4 [facility] Comment on above: Performed By: #### H IVCMB, PHEP #### [address] [address] In House Cra: Dom Fowler MD #### CP #### [facility] [address] [place] [address] Dr. [id number] In House Cra: Shakeel Graham MD Hematocrit (Bld) [Volume fraction] 36.0 % Low 36.3-47.1 [facility] Comment on above: Performed By: #### H IVCMB, PHEP #### [address] [address] In House Cra: Dom Fowler MD #### CP #### [facility] [address] [place] [address] [id number] In House Cra: Shakeel Graham MD Hemoglobin (Bld) [Mass/Vol] 10.9 g/dL Low 11.9-15.1 [facility] Comment on above: Performed By: #### H IVCMB, PHEP #### [address] [address] In House Cra: Dom Fowler MD #### CP #### [facility] [address] [place] [address] [place], [place] [id number] In House Cra: Shakeel Graham MD MCH (RBC) [Entitic mass] 26.2 pg Normal 25.2-33.5 [facility] Comment on above: Performed By: #### H IVCMB, PHEP #### [address] [address] In House Cra: Dom Fowler MD #### CP #### [facility] [address] [place] [address] Dr. [phone] In House Cra: Shakeel Graham MD MCHC (RBC) [Mass/Vol] 30.3 g/dL Normal 28.4-34.8 [facility] Comment on above: Performed By: #### H IVCMB, PHEP #### [address] [address] In House Cra: Dom Fowler MD #### CP #### [address] [place] [id number] In House Cra: Shakeel Graham MD MCV (RBC) [Entitic vol] 86.5 fL Normal 82.6-102.9 [facility] Comment on above: Performed By: #### H IVCMB, PHEP #### [address] [address] In House Cra: Dom Fowler MD #### CP #### [address] [place] [id number] In House Cra: Shakeel Graham MD NRBC Automated 0.0 per 100 WBC Normal 0.0 [facility] Comment on above: Performed By: #### H IVCMB, PHEP #### [address] [address] In House Cra: Dom Fowler MD #### CP #### [address] [place], [place] [id number] In House Cra: Shakeel Graham MD Platelet mean volume (Bld) [Entitic vol] 10.8 fL Normal 8.1-13.5 [facility] Comment on above: Performed By: #### H IVCMB, PHEP #### [address] [address] In House Cra: Dom Fowler MD #### CP #### [address] [place], [place] [phone] In House Cra: Shakeel Graham MD Platelets (Bld) [#/Vol] 328 10*3/uL Normal 138-453 [facility] Comment on above: Performed By: #### H IVCMB, PHEP #### [address] [address] In House Cra: Dom Fowler MD #### CP #### [address] [place], [place] [id number] In House Cra: Shakeel Graham MD RBC (Bld) [#/Vol] 4.16 10*6/uL Normal 3.95-5.11 [facility] Comment on above: Performed By: #### H IVCMB, PHEP #### [address] [address] In House Cra: Dom Fowler MD #### CP #### [address] [place], [place] [id number] In House Cra: Shakeel Graham MD WBC (Bld) [#/Vol] 5.7 10*3/uL Normal 3.5-11.3 [facility] Comment on above: Performed By: #### H IVCMB, PHEP #### [address] [address] In House Cra: Dom Fowler MD #### CP #### [address] [place] [address] In House Cra: Shakeel Graham MD Erythrocyte distribution width (RBC) [Ratio] 14.7 % High 11.8 - 14.4 % [place] Hematocrit (Bld) [Volume fraction] 36.0 % Low 36.3 - 47.1 % [place] Hemoglobin (Bld) [Mass/Vol] 10.9 g/dL Low 11.9 - 15.1 g/dL [place] Interpretation and review of laboratory results Abnormal [place] MCH (RBC) [Entitic mass] 26.2 pg 25.2 - 33.5 pg [place] MCHC (RBC) [Mass/Vol] 30.3 g/dL 28.4 - 34.8 g/dL [place] MCV (RBC) [Entitic vol] 86.5 fL 82.6 - 102.9 fL [place] Platelet mean volume (Bld) [Entitic vol] 10.8 fL 8.1 - 13.5 fL [place], [place] Platelets (Bld) [#/Vol] 328 10*3/uL [place] RBC (Bld) [#/Vol] 4.16 10*6/uL 3.95 - 5.1 1 m/uL [place] WBC (Bld) [#/Vol] 0.0 10*3/uL 0.0 per 100 WBC [place] WBC (Bld) [#/Vol] 5.7 10*3/uL [place] Comp Metabolic Profon 2019 Bilirubin Ql (U) <0.10 Low 0.3-1.2 [facility] Comment on above: Performed By: #### H IVCMB, PHEP #### [facility] [address] [place] [address] In House Cra: Dom Fowler MD #### CP #### [facility] [address] [place] [place] [address] In House Cra: Shakeel Graham MD (cont.) Normal [facility] Comment on above: Result Comment: Aver age GFR for 20-29 years old: 116 mL/min/1.73sq m Chronic Kidney Disease: <60 mL/min/1.73sq m Kidney failure: <15 mL/min/1.73sq m eGFR calculated using average adult body mass. Additional eGFR calculator available at: http://www.Trupanion/multiple_crcl_2011.htm Performed By: #### H IVCMB, PHEP #### [facility] [address] [place] [address] In House Cra: Dom Fowler MD #### CP #### [facility] [address] [place] [address] In House Cra: Shakeel Graham MD Albumin [Mass/Vol] 3.4 g/dL Low 3.5-5.2 [facility] Comment on above: Performed By: #### H IVCMB, PHEP #### [address] [place] [address] In House Cra: Dom Fowler MD #### CP #### [facility] [address] [place] [place] [address] In House Cra: Shakeel Graham MD Albumin/Globulin [Mass ratio] 1.5 {ratio} Normal 1.0-2.5 [facility] Comment on above: Performed By: #### H IVCMB, PHEP #### [address] [place] [address] In House Cra: Dom Fowler MD #### CP #### [facility] [address] [place] [place] [address] In House Cra: Shakeel Graham MD Alkaline Phos 40 U/L Normal 35-104 [facility] Comment on above: Performed By: #### H IVCMB, PHEP #### [address] [address] In House Cra: Dom Fowler MD #### CP #### [facility] [address] [place], [place] [id number] In House Cra: Shakeel Graham MD ALT [Catalytic activity/Vol] 12 U/L Normal 5-33 [facility] Comment on above: Performed By: #### H IVCMB, PHEP #### [facility] [address] [place] [address] In House Cra: Dom Fowler MD #### CP #### [facility] [address] [place], [place] [phone] In House Cra: Shakeel Graham MD Anion gap [Moles/Vol] 9 mmol/L Normal 9-17 [facility] Comment on above: Performed By: #### H IVCMB, PHEP #### [facility] [address] [place] [address] In House Cra: Dom Fowler MD #### CP #### [facility] [address] [place], [place] [phone] In House Cra: Shakeel Graham MD AST [Catalytic activity/Vol] 12 U/L Normal <32 [facility] Comment on above: Performed By: #### H IVCMB, PHEP #### [facility] [address] [place] [address] In House Cra: Dom Fowler MD #### CP #### [facility] [address] [place], [place] [id number] In House Cra: Shakeel Graham MD BUN/CRE Ratio 26 High 9-20 [facility] Comment on above: Performed By: #### H IVCMB, PHEP #### [facility] [address] [place] [address] In House Cra: Dom Fowler MD #### CP #### [facility] [address] [place], [place] [id number] In House Cra: Shakeel Graham MD Calcium [Mass/Vol] 9.3 mg/dL Normal 8.6-10.4 [facility] Comment on above: Performed By: #### H IVCMB, PHEP #### [address] [address] In House Cra: Dom Fowler MD #### CP #### [facility] [address] [place] [address] Dr. [address] [phone] In House Cra: Shakeel Graham MD Chloride [Moles/Vol] 109 mmol/L High 98-107 [facility] Comment on above: Performed By: #### H IVCMB, PHEP #### [address] [address] In House Cra: Dom Fowler MD #### CP #### [facility] [address] [place] [address] [place] [phone] In House Cra: Shakeel Graham MD CO2 [Moles/Vol] 26 mmol/L Normal 20-31 [facility] Comment on above: Performed By: #### H IVCMB, PHEP #### [address] [address] In House Cra: Dom Fowler MD #### CP #### [address] [place] [phone] In House Cra: Shakeel Graham MD Creatinine [Mass/Vol] 0.57 mg/dL Normal 0.50-0.90 [facility] Comment on above: Performed By: #### H IVCMB, PHEP #### [address] [address] In House Cra: Dom Fowler MD #### CP #### [facility] [address] [place] [address] [place], [place] [id number] In House Cra: Shakeel Graham MD GFR, Amer >60 Normal >60 [facility] Comment on above: Performed By: #### H IVCMB, PHEP #### [facility] [address] [place] [address] In House Cra: Dom Fowler MD #### CP #### [facility] [address] [place], [place] [id number] In House Cra: Shakeel Graham MD GFR,non Amer >60 Normal >60 [facility] Comment on above: Performed By: #### H IVCMB, PHEP #### [address] [address] In House Cra: Dom Fowler MD #### CP #### [facility] [address] [place] [address] Dr. [place], [place] [id number] In House Cra: Shakeel Graham MD Glucose [Mass/Vol] 92 mg/dL Normal 70-99 [facility] Comment on above: Performed By: #### H IVCMB, PHEP #### [address] [address] In House Cra: Dom Fowler MD #### CP #### [facility] [address] [place] [address] [place] [address] In House Cra: Shakeel Graham MD Potassium [Moles/Vol] 3.8 mmol/L Normal 3.7-5.3 [facility] Comment on above: Performed By: #### H IVCMB, PHEP #### [facility] [address] [place] [address] In House Cra: Dom Fowler MD #### CP #### [facility] [address] [place], [place] [id number] In House Cra: Shakeel Graham MD Protein [Mass/Vol] 5.7 g/dL Low 6.4-8.3 [facility] Comment on above: Performed By: #### H IVCMB, PHEP #### [address] [address] In House Cra: Dom Fowler MD #### CP #### [facility] [address] [place] [address] In House Cra: Shakeel Graham MD Sodium [Moles/Vol] 144 mmol/L Normal 135-144 [facility] Comment on above: Performed By: #### H IVCMB, PHEP #### [address] [place] [address] In House Cra: Dom Fowler MD #### CP #### [facility] [address] [place] [address] In House Cra: Shakeel Graham MD Staging: Normal [facility] Comment on above: Result Comment: Stag e 1: Some kidney damage normal GFR Stage 2: Mild kidney damage GFR 60-89 Stage 3: Moderate kidney damage GFR 30-59 Stage 4: Severe kidney damage GFR 15-29 Stage 5: Severe kidney damage GFR <15 ESRD - chronic treatment by dialysis or transplant Performed By: #### H IVCMB, PHEP #### [facility] [address] [place] [address] In House Cra: Dom Fowler MD #### CP #### [address] [place] [address] In House Cra: Shakeel Graham MD Urea nitrogen [Mass/Vol] 15 mg/dL Normal 6-20 [facility] Comment on above: Performed By: #### H IVCMB, PHEP #### [facility] [address] [place] [address] In House Cra: Dom Fowler MD #### CP #### [address] [place] [address] In House Cra: Shakeel Graham MD [facility] 04-26-2020 Albumin [Mass/Vol] 3.4 g/dL Low 3.5 - 5.2 g/dL [place] Albumin/Globulin [Mass ratio] 1.5 {ratio} [place], [place] ALP [Catalytic activity/Vol] 40 U/L 35 - 104 U/L [place] ALT [Catalytic activity/Vol] 12 U/L 5 - 33 U/L [place] Anion gap [Moles/Vol] 9 mmol/L 9 - 17 mmol/L [place] AST [Catalytic activity/Vol] 12 U/L <32 [place] Bilirubin Ql (U) <0.10 Low 0.3 - 1.2 mg/dL [place], [place] Bun/Cre Ratio 26 [place], [place] Calcium [Mass/Vol] 9.3 mg/dL 8.6 - 10. 4 mg/dL [place] Chloride [Moles/Vol] 109 mmol/L High 98 - 107 mmol/L [place] CO2 [Moles/Vol] 26 mmol/L 20 - 31 mmol/L [place] Creatinine [Mass/Vol] 0.57 mg/dL 0.5 - 0.9 mg/dL [place] GFR >60 >60 mL/min [place] GFR Non- >60 >60 mL/min [place] Glucose [Mass/Vol] 92 mg/dL 70 - 99 mg/dL [place], [place] Interpretation and review of laboratory results Abnormal [place] Potassium [Moles/Vol] 3.8 mmol/L 3.7 - 5.3 mmol/L [place] Protein [Mass/Vol] 5.7 g/dL Low 6.4 - 8.3 g/dL [place], [place] Sodium [Moles/Vol] 144 mmol/L 135 - 144 mmol/L [place] Urea nitrogen [Mass/Vol] 15 mg/dL 6 - 20 mg/dL [place] HCG Qualitative, Serumon hCG Qual Negative NEGATIVE [place] Comment on above: Specimens with hCG l evels near the threshold of the test (25 mIU/mL) may give a negative or indeterminate result. In such cases, another test should be performed with a new specimen in 48-72 hours. If early is suspected clinically in this setting, correlation with quantitative serum b-hCG level is suggested. [facility] has confirmed the use of plasma for this test. This has not been cleared or approved by the U.S. Food and Drug Administration. The FDA has determined that such clearance is not necessary. HCG Screen, Bloodon 04-26-20 20 HCG Qn Negative Normal NEG [facility] Comment on above: Result Comment: Spec imens with hCG levels near the threshold of the test (25 mIU/mL) may give a negative or indeterminate result. In such cases, another test should be performed with a new specimen in 48-72 hours. If early is suspected clinically in this setting, correlation with quantitative serum b-hCG level is suggested. [facility] has confirmed the use of plasma for this test. This has not been cleared or approved by the U.S. Food and Drug Administration. The FDA has determined that such clearance is not necessary. Performed By: #### H IVCMB, PHEP #### [facility] [address] [place], [place] [id number] In House Cra: Dom Fowler MD #### CP #### [facility] [address] [place] [address] [place] [address] In House Cra: Shakeel Graham MD HIV Ag/Abon 04-26-2020 HIV Ag/Ab NONREACTIVE Normal NR [facility] Comment on above: Result Comment: No l aboratory evidence of HIV infection. If acute HIV infection is suspected, consider testing for HIV-1 RNA. Performed By: #### H IVCMB, PHEP #### [facility] [address] [place] [address] In House Cra: Dom Fowler MD #### CP #### [facility] [address] [place] [place] [address] In House Cra: Shakeel Graham MD HIV Screenon 04-26-2020 HIV Ag/Ab NONREACTIVE NONREACTIVE [facility] Comment on above: No laboratory eviden ce of HIV infection. If acute HIV infection is suspected, consider testing for HIV-1 RNA. Hepatitis Acute [facility] 04-26 Hep A Ab,IgM NONREACTIVE Normal NR [facility] Comment on above: Performed By: #### H IVCMB, PHEP #### [facility] [address] [place] [address] In House Cra: Dom Fowler MD #### CP #### [facility] [address] [place] [address] [place] [address] In House Cra: Shakeel Graham MD Hep B Core Ab,IgM NONREACTIVE Normal [facility] Comment on above: Performed By: #### H IVCMB, PHEP #### [facility] [address] [place] [address] In House Cra: Dom Fowler MD #### CP #### [address] [place] [address] In House Cra: Shakeel Graham MD Hep B Surf Ag NONREACTIVE Normal [facility] Comment on above: Performed By: #### H IVCMB, PHEP #### [address] [address] In House Cra: Dom Fowler MD #### CP #### [facility] [address] [place] [address] [place] [address] In House Cra: Shakeel Graham MD Hep C Ab REACTIVE Abnormal [facility] Comment on above: Result Comment: The [...] Performed By: #### H IVCMB, PHEP #### [facility] [address] [place] [address] In House Cra: Dom Fowler MD #### CP #### [facility] [address] [place] [address] In House Cra: Shakeel Graham MD Hepatitis Panel, Acuteon HAV IgM IA Qn (S) NONREACTIVE NONREACTIVE [place] Hep B Core Ab, IgM NONREACTIVE NONREACTIVE [place] Hepatitis B Surface Ag NONREACTIVE NONREACTIVE [place] Hepatitis C Ab REACTIVE Abnormal NONREACTIVE [place] Comment on above: The hepatitis C [...] Interpretation and review of laboratory results Abnormal [place] Metabolic Panelon 04-26-2020 GFR/1.73 sq M predicted among non-blacks MDRD (S/P/Bld) [Vol rate/Area] [place] Comment on above: Stage 1: Some [...] body mass. Additional eGFR calculator available at: http://www.[employer]/multiple_crcl_2012.htm Microscopic Urinalysison Amorphous, UA NOT REPORTED None [place], [place] Bacteria, UA NOT REPORTED None [place], [place] Casts UA NOT REPORTED /LPF [place], [place] Crystals, UA 5 TO 10 Abnormal None /HPF [place] Crystals, UA CALCIUM OXALATE Abnormal None /HPF [place] Epithelial Cells UA 0 TO 2 [place] Interpretation and review of laboratory results Abnormal [place] Mucus, UA TRACE Abnormal None [place] Other Observations UA NOT REPORTED NOT REQ. [place] RBC (U) [#/Vol] None [facility] [place] Renal Epithelial, UA NOT REPORTED 0 /HPF [place] Trichomonas, UA NOT REPORTED None [facility] [place] WBC, UA 0 TO 2 [place] Yeast, UA NOT REPORTED None [place], [place] - [place] UA w/Reflex Cultureon 2019 Acetoacetic Acid,Ur Negative Normal NEG [facility] Comment on above: Performed By: #### H IVCMB, PHEP #### [address] [address] In House Cra: Dom Fowler MD #### CP #### [address] [place] [id number] In House Cra: Shakeel Graham MD Bilirubin, SemiQt,Ur Negative Normal [facility] Comment on above: Performed By: #### H IVCMB, PHEP #### [address] [address] In House Cra: Dom Fowler MD #### CP #### [address] [place] [id number] In House Cra: Shakeel Graham MD Color (U) YELLOW Normal [facility] Comment on above: Performed By: #### H IVCMB, PHEP #### [address] [address] In House Cra: Dom Fowler MD #### CP #### [facility] [address] [place] [address] [place] [address] In House Cra: Shakeel Graham MD Glucose Ql (U) Negative Normal NEG [facility] Comment on above: Performed By: #### H IVCMB, PHEP #### [address] [address] In House Cra: Dom Fowler MD #### CP #### [facility] [address] [place] [address] Dr. [place], [place] [phone] In House Cra: Shakeel Graham MD Hemoglobin, Ur Negative Normal NEG [facility] Comment on above: Performed By: #### H IVCMB, PHEP #### [address] [address] In House Cra: Dom Fowler MD #### CP #### [address] [place] [address] In House Cra: Shakeel Graham MD Leukocyte esterase Test strip Ql (U) Negative Normal NEG [facility] Comment on above: Performed By: #### H IVCMB, PHEP #### [address] [address] In House Cra: Dom Fowler MD #### CP #### [address] [place] [address] In House Cra: Shakeel Graham MD Nitrite,Ur Negative Normal NEG [facility] Comment on above: Performed By: #### H IVCMB, PHEP #### [address] [address] In House Cra: Dom Fowler MD #### CP #### [address] [place] [address] In House Cra: Shakeel Graham MD pH (U) 6.5 [pH] Normal 5.0-9.0 [facility] Comment on above: Performed By: #### H IVCMB, PHEP #### [address] [address] In House Cra: Dom Fowler MD #### CP #### [facility] [address] [place] [address] In House Cra: Shakeel Graham MD Protein Ql (U) Negative Normal NEG [facility] Comment on above: Performed By: #### H IVCMB, PHEP #### [facility] [address] [place] [address] In House Cra: Dom Fowler MD #### CP #### [address] [place] [address] In House Cra: Shakeel Graham MD Specific gravity (U) [Rel density] 1.025 High 1.010-1.020 [facility] Comment on above: Performed By: #### H IVCMB, PHEP #### [facility] [address] [place] [address] In House Cra: Dom Fowler MD #### CP #### [address] [place] [address] In House Cra: Shakeel Graham MD Turbidity CLEAR Normal CLEAR [facility] Comment on above: Performed By: #### H IVCMB, PHEP #### [address] [address] In House Cra: Dom Fowler MD #### CP #### [address] [place] [address] In House Cra: Shakeel Graham MD Urobilinogen,Ur Normal Normal NORM [facility] Comment on above: Performed By: #### H IVCMB, PHEP #### [address] [address] In House Cra: Dom Fowler MD #### CP #### [address] [place] [address] In House Cra: Shakeel Graham MD Comment NOT REPORTED Normal [facility] Comment on above: Performed By: #### H IVCMB, PHEP #### [facility] [address] [place] [address] In House Cra: Dom Fowler MD #### CP #### [address] [place] [address] In House Cra: Shakeel Graham MD Urinalysis Reflex to Culture on 04-26-2020 Bilirubin Urine Negative NEGATIVE [facility], [place] Color, UA YELLOW YELLOW [facility], [place] Glucose, Ur Negative NEGATIVE [facility] Interpretation and review of laboratory results Abnormal [place] Ketones Ql (U) Negative NEGATIVE [facility], [place] Leukocyte esterase Test strip Ql (U) Negative NEGATIVE [facility], [place] Nitrite, Urine Negative NEGATIVE [facility], [place] pH, UA 6.5 [place] Protein (U) [Mass/Vol] Negative NEGATIVE [facility], [place] Specific [place], UA 1.025 High [facility], [place] Turbidity UA CLEAR CLEAR [place] Urinalysis Comments NOT REPORTED [facility], [place] Urine Hgb Negative NEGATIVE [facility], [place] Urobilinogen, Urine Normal Normal [place] Urinalysis,Microon 0 ----- Normal [facility] Comment on above: Performed By: #### H IVCMB, PHEP #### [address] [place] [address] In House Cra: Dom Fowler MD #### CP #### [address] [place] [address] In House Cra: Shakeel Graham MD Crystals LM Nom (Urine sed) CALCIUM OXALATE Abnormal NONE [facility] Comment on above: Result Comment: 5 TO 10 Performed By: #### H IVCMB, PHEP #### [facility] [address] [place] [address] In House Cra: Dom Fowler MD #### CP #### [facility] [address] [place] [address] In House Cra: Shakeel Graham MD Epithelial cells LM.HPF (Urine sed) [#/Area] 0 TO 2 Normal 0-25 [facility] Comment on above: Performed By: #### H IVCMB, PHEP #### [address] [address] In House Cra: Dom Fowler MD #### CP #### [address] [place], [place] [id number] In House Cra: Shakeel Graham MD Mucus Strands TRACE Abnormal [facility] Comment on above: Performed By: #### H IVCMB, PHEP #### [address] [address] In House Cra: Dom Fowler MD #### CP #### [address] [place] [id number] In House Cra: Shakeel Graham MD RBC (U) [#/Vol] None Normal 0-2 [facility] Comment on above: Performed By: #### H IVCMB, PHEP #### [address] [address] In House Cra: Dom Fowler MD #### CP #### [address] [place] [address] In House Cra: Shakeel Graham MD WBC (U) [#/Vol] 0 TO 2 Normal 0-5 [facility] Comment on above: Performed By: #### H IVCMB, PHEP #### [address] [address] In House Cra: Dom Fowler MD #### CP #### [address] [place], [place] 2831983 In House Cra: Shakeel Graham MD Amorphous sediment LM Ql (Urine sed) NOT REPORTED Normal [facility] Comment on above: Performed By: #### H IVCMB, PHEP #### [address] [address] In House Cra: Dom Fowler MD #### CP #### [facility] [address] [place] [address] In House Cra: Shakeel Graham MD Bacteria LM.HPF (Urine sed) [#/Area] NOT REPORTED Normal NONE [facility] Comment on above: Performed By: #### H IVCMB, PHEP #### [address] [address] In House Cra: Dom Fowler MD #### CP #### [address] [place] [address] In House Cra: Shakeel Graham MD Casts LM.LPF (Urine sed) [#/Area] NOT REPORTED Normal [facility] Comment on above: Performed By: #### H IVCMB, PHEP #### [address] [address] In House Cra: Dom Fowler MD #### CP #### [address] [place] [address] In House Cra: Shakeel Graham MD Epithelial, Renal NOT REPORTED Normal 0 [facility] Comment on above: Performed By: #### H IVCMB, PHEP #### [address] [address] In House Cra: Dom Fowler MD #### CP #### [address] [place] [address] In House Cra: Shakeel Graham MD Other Observations NOT REPORTED Normal NREQ [facility] Comment on above: Performed By: #### H IVCMB, PHEP #### [address] [address] In House Cra: oDm Fowler MD #### CP #### [facility] [address] [place], [place] [phone] In House Cra: Shakeel Graham MD Trichomonas NOT REPORTED Normal NONE [facility] Comment on above: Performed By: #### H IVCMB, PHEP #### [facility] [address] [place], [place] [id number] In House Cra: Dom Fowler MD #### CP #### [facility] [address] [place] [id number] In House Cra: Shakeel Graham MD Yeast LM Ql (Urine sed) NOT REPORTED Normal NONE [facility] Comment on above: Performed By: #### H IVCMB, PHEP #### [facility] [address] [place], [place] 5037808 In House Cra: Dom Fowler MD #### CP #### [facility] [address] [place] [address] Dr. [place] [phone] In House Cra: Shakeel Graham MD ED Clinical Summaryon 2019 ED Clinical Summary [address] [address] ED Clinical Summary Person Information Name: Kathryn Ervin/[facility] Age: 25 Years : 1995 Sex: Female PCP: Marital Status: Single Phone: Race: White Ethnicity: Not or Language: [place]ian Visit Reason: Drug withdrawal; Drug withdrawal Acuity: 3 Enc Type: Emergency Med Service: Emergency Medicine Arrival: 03/16/2020 20:10:45 Discharge: 03/17/2020 02:12:00 LOS: 000 06:02 Checkin: 03/16/2020 20:10:45 Checkout: 03/17/2020 02:12:00 Dispo Type: Home or Self Care Address: [address] [place] [address] Provider Notes: Diagnosis: 1:Affective disorder; 2:Drug usage [...] range between ( 27.2 and 40.8 ) [place] Auto: 11.4 % -- Normal range between [...] range between ( 36.0 and 46.0 ) [place] Absolute: 1.5 x10 MCH: 27.4 pg -- [...] 03/16/2020 20:20:41 Follow up: With: Address: When: [facility] [place], [place] Within 1 to 2 days Discharge Orders: Discharge Patient 03/17/20 1:45:00 EDT, Discharge to Home, Self Patient Education Information: Understanding Methamphetamine Abuse and Addiction; Treating Affective (Mood) Disorders [facility] Poison Help line: . [facility] Mental Health Hotline: [place] Tobacco Quit Line: [place], [place]) [address]: [phone] [place], [place]) [address]: [phone] [facility] [address] [place], [place]: [phone] Normal [facility] hCG Quantitativeon 0 Beta hCG Qnt 1.7 mIU/mL Normal 0.0-4.9 [facility] Comment on above: Result Comment: 0.0 - 4.9 Negative for 5.0 - 25.0 Indeterminant for : Suggest repeat in 72 hours. >25.0 Positive for Performed By: #### H CG ####[place] [address] .UA Microscp Aon 03-16-2020 UA Hyline Cast Qual >20 Abnormal Negative [facility] Comment on above: Performed By: #### C [id number] ####[place] [address] UA Mucus Present Abnormal Absent [facility] Comment on above: Performed By: #### C [id number] ####[place] [id number] UA RBC Quant 12 /HPF High 0-5 [facility] Comment on above: Performed By: #### C [id number] ####[address] [address] UA Squepi Cells Quant 6 /HPF Normal 0-29 [facility] Comment on above: Performed By: #### C [id number] ####[address] [address] UA WBC Quant 7 /HPF High 0-5 [facility] Comment on above: Performed By: #### C [id number] ####[facility] [place] [address] .eGFRon 03-16-2020 eGFR AA 52 mL/min/1.73m? Low >=60 [facility] Comment on above: Result Comment: Resu lt = 0-14.9 mL/min/1.73 m2 Kidney failure or Dialysis Result = 15-29 mL/min/1.73 m2 Severe decrease in GFR Result = 30-59 mL/min/1.73 m2 Moderate decrease in GFR Result >= 60 mL/min/1.73 m2 Normal or increased GFR Performed By: #### E GFR #### [address] [address] eGFR Non-AA 43 mL/min/1.73m? Low >=60 [facility] Comment on above: Result Comment: Resu [...] dosing. Performed By: #### E GFR #### [address] [address] CBC w/ Diffon 03-16-2020 Erythrocyte distribution width (RBC) [Ratio] 15.9 % High 11.6-14.8 [facility] Comment on above: Performed By: #### C BC #### [address] [address] Hematocrit (Bld) [Volume fraction] 37.5 % Normal 36.0-46.0 [facility] Comment on above: Performed By: #### C BC #### [address] [address] Hemoglobin (Bld) [Mass/Vol] 12.5 g/dL Normal 12.0-16.0 [facility] Comment on above: Performed By: #### C BC #### [address] [address] MCH (RBC) [Entitic mass] 27.4 pg Normal 27.0-35.0 [facility] Comment on above: Performed By: #### C BC #### [address] [address] MCHC (RBC) [Mass/Vol] 33.2 % Normal 31.0-37.0 [facility] Comment on above: Performed By: #### C BC #### [address] [address] MCV (RBC) [Entitic vol] 82.4 fL Normal 80.0-100.0 [facility] Comment on above: Performed By: #### C BC #### [address] [address] Platelet mean volume (Bld) [Entitic vol] 9.4 fL Normal 6.7-10.6 [facility] Comment on above: Performed By: #### C BC #### [address] [address] Platelets (Bld) [#/Vol] 307 x10*3/mcL Normal 150-350 [facility] Comment on above: Performed By: #### C BC #### [address] [address] RBC (Bld) [#/Vol] 4.55 x10*6/mcL Normal 3.80-5.20 [facility] Comment on above: Performed By: #### C BC #### [address] [address] WBC (Bld) [#/Vol] 12.9 x10*3/mcL High 4.5-11.0 [facility] Comment on above: Performed By: #### C BC #### [address] [address] CMPon 03-16-2020 Albumin [Mass/Vol] 5.2 g/dL High 3.2-4.[address] [facility] Comment on above: Result Comment: [facility] Laboratory updated the methodology used for albumin testing on 04/24/18. Albumin measurement was performed using a bromcresol purple dye-binding assay. Performed By: #### C OMP #### [address] [address] Albumin/Globulin [Mass ratio] 1.5 {ratio} Normal 1.1-2.2 [facility] Comment on above: Performed By: #### C OMP #### [address] [address] Alk Phos 47 IU/L Normal 32-91 [facility] Comment on above: Performed By: #### C OMP #### [address] [address] ALT [Catalytic activity/Vol] 19 U/L Normal 14-54 [facility] Comment on above: Performed By: #### C OMP #### [address] [address] Anion gap [Moles/Vol] 22 mmol/L High 7-17 [facility] Comment on above: Performed By: #### C OMP #### [address] [address] AST [Catalytic activity/Vol] 31 U/L Normal 15-41 [facility] Comment on above: Performed By: #### C OMP #### [address] [place] [address] Bili Total 1.4 mg/dL High 0.3-1.2 [facility] Comment on above: Performed By: #### C OMP #### [address] [address] Calcium [Mass/Vol] 10.2 mg/dL Normal 8.5-10.[address] [facility] Comment on above: Performed By: #### C OMP #### [address] [address] Chloride [Moles/Vol] 100 mmol/L Normal 98-110 [facility] Comment on above: Performed By: #### C OMP #### [address] [address] [address] CO2 [Moles/Vol] 19 mmol/L Low 22-32 [facility] Comment on above: Performed By: #### C OMP #### [address] [address] Creatinine [Mass/Vol] 1.47 mg/dL High 0.44-1.03 [facility] Comment on above: Performed By: #### C OMP #### [address] [address] Glucose [Mass/Vol] 85 mg/dL Normal 70-[address] [facility] Comment on above: Performed By: #### C OMP #### [address] [address] Potassium [Moles/Vol] 3.7 mmol/L Normal 3.4-4.8 [facility] Comment on above: Performed By: #### C OMP #### [address] [address] Protein [Mass/Vol] 8.7 g/dL High 6.5-8.[address] [facility] Comment on above: Performed By: #### C OMP #### [address] [address] Sodium [Moles/Vol] 137 mmol/L Normal 133-[address] [facility] Comment on above: Performed By: #### C OMP #### [address] [address] Urea nitrogen [Mass/Vol] 25 mg/dL Normal 8-26 [facility] Comment on above: Performed By: #### C OMP #### [address] [address] Urea nitrogen/Creatinine [Mass ratio] 17.0 mg/mg Normal 10.0-20.0 [facility] Comment on above: Performed By: #### C OMP #### [address] [address] CPKon 03-16-2020 Creatine Phosphokinase 439 IU/L High 38-234 [facility] Comment on above: Performed By: #### C P #### [address] [address] Diff Autoon 03-16-2020 Baso Absolute 0.0 x10*3/mcL Normal 0.0-0.2 [facility] Comment on above: Performed By: #### . Automated Diff #### [address] [address] Basophils/100 WBC (Bld) 0.4 % Normal 0.0-1.5 [facility] Comment on above: Performed By: #### . Automated Diff #### [address] [address] Eos Absolute 0.0 x10*3/mcL Normal 0.0-0.4 [facility] Comment on above: Performed By: #### . Automated Diff #### [address] [address] Eosinophils/100 WBC (Bld) 0.1 % Normal 0.0-5.4 [facility] Comment on above: Performed By: #### . Automated Diff #### [address] [address] Lymphocytes (Bld) [#/Vol] 1.4 x10*3/mcL Normal 1.0-4.8 [facility] Comment on above: Performed By: #### . Automated Diff #### [address] [address] Lymphocytes/100 WBC (Bld) 10.8 % Low 27.2-40.8 [facility] Comment on above: Performed By: #### . Automated Diff #### [address] [address] [place] Absolute 1.5 x10*3/mcL High 0.1-1.1 [facility] Comment on above: Performed By: #### . Automated Diff #### [facility] [address] [place] [address] Monocytes/100 WBC (Bld) 11.4 % Normal 3.7-11.9 [facility] Comment on above: Performed By: #### . Automated Diff #### [facility] [address] [place] [address] Neutro Absolute 10.0 x10*3/mcL High 1.8-7.7 [facility] Comment on above: Performed By: #### . Automated Diff #### [facility] [address] [place] [address] Neutro Auto 77.3 % High 47.2-70.8 [facility] Comment on above: Performed By: #### . Automated Diff #### [address] [address] ED Note-Nursingon 03-16-2020 ED Note-Nursing Lab called about add ons Electronically signed by Barbara Holman 03/16/20 20:49 EDT Normal [facility] ED Note-Physicianon 03-16-20 ED Note-Physician Chief [...] that she has residential set up at [facility] in [place], [place] but she has to detox first. [...] as well. She was seen by Alonso, sr. social media & mobile manager who has arranged for her to go to [facility] tomorrow as patient is interested in treatment. Verbally contracted to safety and filled out a safety plan. Alonso with social work spoke with bridge game director, Jelena who will arrange for further follow-up when they arrive tomorrow. Family is agreeable with plan. Patient has good support. They will return if any changes of symptoms or concern. Silvia Castañeda scribing for and in the presence of Dr. Cornell. Scribe Attestation: The information in this document, created by the medical imaging tech for me, accurately reflects the services I [...] High Lymph Auto 03/16/20 20:39 10.8 Low [place] Auto 03/16/20 20:39 11.4 Eos Auto 03/16/20 20:39 0.1 Basophil Auto 03/16/20 20:39 0.4 Neutro Absolute 03/16/20 20:39 10.0 High Lymph Absolute 03/16/20 20:39 1.4 [place] Absolute 03/16/20 20:39 1.5 High Eos Absolute [...] Lima Cornell MD 03/17/2020 04:16 EDT Normal [facility] Ethanolon 03-16-2020 Ethanol [Mass/Vol] mg/dL Normal <=[address] [facility] Comment on above: Result Comment: To c onvert mg/dL to g/dL, divide result by 1,000. Legal limit of intoxication is 80 mg/dL (0.08 g/dL). Performed By: #### A LC #### [address] [address] UA w Culture if Indon 2019 Color (U) Terri Normal [facility] Comment on above: Performed By: #### U CI #### [address] [address] Glucose (U) [Mass/Vol] Negative Normal Negative [facility] Comment on above: Performed By: #### U CI #### [address] [address] Ketones Ql (U) 20 mg/dL Abnormal Negative [facility] Comment on above: Performed By: #### U CI #### [address] [address] UA Blood Small Abnormal Negative [facility] Comment on above: Performed By: #### U CI #### [address] [address] UA Clarity Cloudy Normal [facility] Comment on above: Performed By: #### U CI #### [address] [address] UA Leukocyte Esterase Trace Abnormal Negative [facility] Comment on above: Performed By: #### U CI #### [address] [address] UA Nitrite Negative Normal Negative [facility] Comment on above: Performed By: #### U CI #### [address] [address] UA pH 5.0 Normal 4.5 - 7.8 [facility] Comment on above: Performed By: #### U CI #### [address] [address] UA Protein 100 mg/dL Abnormal Negative [facility] Comment on above: Performed By: #### U CI #### [address] [address] UA Source Clean Catch Normal [facility] Comment on above: Performed By: #### U CI #### [address] [address] UA Spec Grav 1.025 Normal 1.003-1.035 [facility] Comment on above: Performed By: #### U CI #### [address] [address] UA Urobilinogen 0.2 mg/dL Normal 0.2 - 1.0 [facility] Comment on above: Performed By: #### U CI #### [place] [id number] Urobilinogen Qn (U) Small Abnormal Negative [facility] Comment on above: Performed By: #### U CI #### [address] [address] UDS Compon 03-16-2020 Creatinine [Mass/Vol] mg/dL Normal [facility] Comment on above: Performed By: #### C [id number] #### [address] [address] Ur Amph Scrn Positive Abnormal NEG = <1000 [facility] Comment on above: Result Comment: This unconfirmed positive screening result is to be used for medical treatment purposes only. Unconfirmed screening results must not be used for non-medical purposes. (e.g. employment testing, legal testing). Performed By: #### C [id number] #### [address] [address] Ur Anastasia Scrn Negative Normal NEG = <200 [facility] Comment on above: Performed By: #### C [id number] #### [facility] [address] [place] [address] Ur Benzodia Scrn Negative Normal NEG = <200 [facility] Comment on above: Performed By: #### C [id number] #### [facility] [address] [facility] [place] [address] Ur Cannab Scrn Negative Normal NEG = <50 [facility] Comment on above: Performed By: #### C [id number] #### [facility] [address] [place] [address] [place] [address] Ur Cocaine Scrn Negative Normal NEG = <300 [facility] Comment on above: Performed By: #### C [id number] #### [address] [place] [address] Ur Methadone Scn Negative Normal NEG = <300 [facility] Comment on above: Performed By: #### C [id number] #### [address] [place] [address] Ur Opiate Scrn Negative Normal NEG = <300 [facility] Comment on above: Performed By: #### C [id number] #### [facility] [address] [place] [address], [place] [address] Ur Oxy Screen Negative Normal NEG = <100 [facility] Comment on above: Performed By: #### C [id number] #### [facility] [address] [place] [address] [place] [address] Ur Oxy Scrn Qnt 54 ng/mL Normal <=99 [facility] Comment on above: Performed By: #### C [id number] #### [facility] [address] [place] [address] [place] [address] Ur PCP Scrn Negative Normal NEG = <25 [facility] Comment on above: Performed By: #### C [id number] #### [address] [place] [address] UA pH 5.0 Normal 4.5 - 7.8 [facility] Comment on above: Performed By: #### C [id number] #### [facility] [address] [place] [address] UA Spec Grav 1.024 Normal 1.003-1.035 [facility] Comment on above: Performed By: #### C [id number] #### [facility] [address] [place] [address] Chlamydia/GC DNA, Uron 11-23 Chlamydia Probe, Ur Negative Normal NEG [facility] Comment on above: Result Comment: CHLA MYDIA [...] Performed By: #### H IVCMB, PHEP #### [address] [id number] In House Cra: Dom Fowler MD #### CP #### [facility] [address] [place], [facility] In House Cra: Shakeel Graham MD Gonorrhea Probe, Ur Negative Normal NEG [facility] Comment on above: Result Comment: NEIS SERIA [...] Performed By: #### H IVCMB, PHEP #### [place] [address] [place], [place] [id number] In House Cra: Dom Fowler MD #### CP #### [facility] [address] [place] [place] [address] In House Cra: Shakeel Graham MD Cult,Urineon 11-22-2019 Cult,Urine Specimen Description .VOIDED URINE Special Requests NOT REPORTED Culture NO SIGNIFICANT GROWTH Report Status FINAL 11/22/2019 Normal [facility] Comment on above: Performed By: #### H IVCMB, PHEP #### [facility] [address] [place] [address] In House Cra: Dom Fowler MD #### CP #### [facility] [address] [place] [address] In House Cra: Shakeel Graham MD HIV Ag/Abon 11-21-2019 HIV Ag/Ab NONREACTIVE Normal NR [facility] Comment on above: Result Comment: No l aboratory evidence of HIV infection. If acute HIV infection is suspected, consider testing for HIV-1 RNA. Performed By: #### H IVCMB, PHEP #### [address] [place] [place] [address] In House Cra: Dom Fowler MD #### CP #### [facility] [address] [place] [address] In House Cra: Shakeel Graham MD HIV Screenon 11-21-2019 HIV Ag/Ab NONREACTIVE NONREACTIVE [place], [place] Comment on above: No laboratory eviden ce of HIV infection. If acute HIV infection is suspected, consider testing for HIV-1 RNA. Hep C Abon 11-21-2019 Hep C Ab REACTIVE Abnormal NR [facility] Comment on above: Result Comment: The hepatitis [...] Performed By: #### H IVCMB, PHEP #### [facility] [address] [place] [address] In House Cra: Dom Fowler MD #### CP #### [facility] [address] [place] [address] [place] [address] In House Cra: Shakeel Graham MD Profileon 0 Hep B Surf Ag NONREACTIVE Normal NR [facility] Comment on above: Performed By: #### H IVCMB, PHEP #### [place] [place] [address] In House Cra: Dom Fowler MD #### CP #### [address] [place] [address] In House Cra: Shakeel Graham MD T.pallidum Ab Screen NONREACTIVE Normal NR [facility] Comment on above: Result Comment: T. pallidum antibodies are not detected. There is no serological evidence of infection with T. pallidum (early primary syphilis cannot be excluded). Retest in 2-4 weeks if syphilis is clinically suspect. Performed By: #### H IVCMB, PHEP #### [address] [address] In House Cra: Dom Fowler MD #### CP #### [address] [place], [place] [id number] In House Cra: Shakeel Graham MD Rubella Ab, IgG 323.1 IU/mL Normal [facility] Comment on above: Result Comment: REFERENCE RANGE: <5.0 NON-REACTIVE (non-immune) 5.0 TO 9.9 EQUIVOCAL >=10.0 REACTIVE (immune) Performed By: #### H IVCMB, PHEP #### [address] [address] In House Cra: Dom Fowler MD #### CP #### [address] [place], [place] [id number] In House Cra: Shakeel Graham MD HCG, Quanton 11-20-2019 HCG, Quant [address] IU/L High <5 [facility] Comment on above: Result Comment: Non-preg premeno [...] Performed By: #### H IVCMB, PHEP #### [facility] [place] [address] In House Cra: Dom Fowler MD #### CP #### [facility] [address] [place] [address] In House Cra: Shakeel Graham MD HCG, Quantitative, on 11-20-2019 hCG Quant 32054 High <5 IU/L [place], [place] Comment on above: Non-preg premeno <=5 Postmeno <=8 Male <=3 If HCG results do not concur with clinical observations, additional testing to confirm results is recommended. Elevated results not associated with may be found in patients with other diseases such as tumors of the germ cells (testis, ovaries, etc.), bladder, pancreas, stomach, lungs, and liver. Interpretation and review of laboratory results Abnormal [place], [place] Hepatitis C Antibodyon 11-19 Hepatitis C Ab REACTIVE Abnormal NONREACTIVE [place], [place] Comment on above: The hepatitis C [...] Interpretation and review of laboratory results Abnormal [place], [place] TYPE AND SCREENon 0 11-20-2019 ABO/Rh Positive [place], [place] Profileon 0 Abs. Basophil 0.03 k/uL Normal 0.00-0.20 [facility] Comment on above: Performed By: #### H IVCMB, PHEP #### [facility] [address] [place] [address] In House Cra: Dom Fowler MD #### CP #### [facility] [address] [place] [address] Dr. [place] [id number] ( In House Cra: Shakeel Graham MD Abs.Imm.Granulocyte <0.03 Normal 0.00-0.30 [facility] Comment on above: Performed By: #### H IVCMB, PHEP #### [place] [address] In House Cra: Dom Fowler MD #### CP #### [address] [place] [id number] ( In House Cra: Shakeel Graham MD Abs.Neutrophil (Seg) 2.95 k/uL Normal 1.50-8.10 [facility] Comment on above: Performed By: #### H IVCMB, PHEP #### [place] [address] In House Cra: Dom Fowler MD #### CP #### [address] [place] [id number] ( In House Cra: Shakeel Graham MD Basophils/100 WBC (Bld) 1 % Normal 0-2 [facility] Comment on above: Performed By: #### H IVCMB, PHEP #### [place] [address] In House Cra: Dom Fowler MD #### CP #### [facility] [address] [place] [address] [place] [address] In House Cra: Shakeel Graham MD Eosinophils (Bld) [#/Vol] 0.09 10*3/uL Normal 0.00-0.44 [facility] Comment on above: Performed By: #### H IVCMB, PHEP #### [address] [address] In House Cra: Dom Fowler MD #### CP #### [address] [place], [place] [id number] In House Cra: Shakeel Graham MD Eosinophils/100 WBC (Bld) 2 % Normal 1-4 [facility] Comment on above: Performed By: #### H IVCMB, PHEP #### [address] [address] In House Cra: Dom Fowler MD #### CP #### [address] [place], [place] [id number] In House Cra: Shakeel Graham MD Erythrocyte distribution width (RBC) [Ratio] 14.0 % Normal 11.8-14.4 [facility] Comment on above: Performed By: #### H IVCMB, PHEP #### [address] [id number] In House Cra: Dom Fowler MD #### CP #### [address] [place], [place] [phone] In House Cra: Shakeel Graham MD Hematocrit (Bld) [Volume fraction] 37.7 % Normal 36.3-47.1 [facility] Comment on above: Performed By: #### H IVCMB, PHEP #### [address] [address] In House Cra: Dom Fowler MD #### CP #### [address] [place], [place] 8304883 In House Cra: Shakeel Graham MD Hemoglobin (Bld) [Mass/Vol] 11.8 g/dL Low 11.9-15.1 [facility] Comment on above: Performed By: #### H IVCMB, PHEP #### [address] [address] In House Cra: Dom Fowler MD #### CP #### [address] [place] [id number] In House Cra: Shakeel Graham MD Immature granulocytes (Bld) [#/Vol] 0 % Normal 0 [facility] Comment on above: Performed By: #### H IVCMB, PHEP #### [address] [address] In House Cra: Dom Fowelr MD #### CP #### [facility] [address] [place] [id number] In House Cra: Shakeel Graham MD Lymphocytes (Bld) [#/Vol] 1.50 10*3/uL Normal 1.10-3.70 [facility] Comment on above: Performed By: #### H IVCMB, PHEP #### [address] [address] In House Cra: Dom Fowler MD #### CP #### [facility] [address] [place] [address] [place] [id number] In House Cra: Shakeel Graham MD Lymphocytes/100 WBC (Bld) 30 % Normal 24-43 [facility] Comment on above: Performed By: #### H IVCMB, PHEP #### [address] [address] In House Cra: Dom Fowler MD #### CP #### [address] [place] [id number] In House Cra: Shakeel Graham MD MCH (RBC) [Entitic mass] 26.5 pg Normal 25.2-33.5 [facility] Comment on above: Performed By: #### H IVCMB, PHEP #### [address] [address] In House Cra: Dom Fowler MD #### CP #### [facility] [address] [place] [id number] In House Cra: Shakeel Graham MD MCHC (RBC) [Mass/Vol] 31.3 g/dL Normal 28.4-34.8 [facility] Comment on above: Performed By: #### H IVCMB, PHEP #### [address] [address] In House Cra: Dom Fowler MD #### CP #### [address] [place] [id number] In House Cra: Shakeel Graham MD MCV (RBC) [Entitic vol] 84.5 fL Normal 82.6-102.9 [facility] Comment on above: Performed By: #### H IVCMB, PHEP #### [address] [address] In House Cra: Dom Fowler MD #### CP #### [address] [place] [phone] In House Cra: Shakeel Graham MD Monocytes (Bld) [#/Vol] 0.37 10*3/uL Normal 0.10-1.20 [facility] Comment on above: Performed By: #### H IVCMB, PHEP #### [address] [address] In House Cra: Dom Fowler MD #### CP #### [address] [place] [id number] In House Cra: Shakeel Graham MD Monocytes/100 WBC (Bld) 8 % Normal 3-12 [facility] Comment on above: Performed By: #### H IVCMB, PHEP #### [address] [address] In House Cra: Dom Fowler MD #### CP #### [address] [place] [address] In House Cra: Shakeel Graham MD Neutrophil (Seg) 59 % Normal 36-65 [facility] Comment on above: Performed By: #### H IVCMB, PHEP #### [address] [place] [address] In House Cra: Dom Fowler MD #### CP #### [facility] [address] [place], [place] 0001083 In House Cra: Shakeel Graham MD NRBC Automated 0.0 per 100 WBC Normal 0.0 [facility] Comment on above: Performed By: #### H IVCMB, PHEP #### [address] [address] In House Cra: Dom Fowler MD #### CP #### [facility] [address] [place] [id number] In House Cra: Shakeel Graham MD Platelet mean volume (Bld) [Entitic vol] 11.2 fL Normal 8.1-13.5 [facility] Comment on above: Performed By: #### H IVCMB, PHEP #### [address] [address] In House Cra: Dom Fowler MD #### CP #### [facility] [address] [place] [address] [place] [phone] In House Cra: Shakeel Graham MD Platelets (Bld) [#/Vol] 254 10*3/uL Normal 138-453 [facility] Comment on above: Performed By: #### H IVCMB, PHEP #### [address] [address] In House Cra: Dom Fowler MD #### CP #### [facility] [address] [place] [address] [place], [place] 5601983 In House Cra: Shakeel Graham MD RBC (Bld) [#/Vol] 4.46 10*6/uL Normal 3.95-5.11 [facility] Comment on above: Performed By: #### H IVCMB, PHEP #### [address] [address] In House Cra: Dom Fowler MD #### CP #### [facility] [address] [place] [address] [place] [address] In House Cra: Shakeel Graham MD WBC (Bld) [#/Vol] 5.0 10*3/uL Normal 3.5-11.3 [facility] Comment on above: Performed By: #### H IVCMB, PHEP #### [address] [address] In House Cra: Dom Fowler MD #### CP #### [address] [place] [address] In House Cra: Shakeel Grahma MD Auto Diff Performed NOT REPORTED Normal [facility] Comment on above: Performed By: #### H IVCMB, PHEP #### [address] [address] In House Cra: Dom Fowler MD #### CP #### [address] [place] [address] In House Cra: Shakeel Graham MD Platelets (Bld) [#/Vol] NOT REPORTED Normal [facility] Comment on above: Performed By: #### H IVCMB, PHEP #### [address] [address] In House Cra: Dom Fowler MD #### CP #### [address] [place] [address] In House Cra: Shakeel Graham MD RBC morphology finding Nom (Bld) NOT REPORTED Normal [facility] Comment on above: Performed By: #### H IVCMB, PHEP #### [address] [address] In House Cra: Dom Fowler MD #### CP #### [address] [place] [address] In House Cra: Shakeel Graham MD WBC Morphology NOT REPORTED Normal [facility] Comment on above: Performed By: #### H IVCMB, PHEP #### [address] [id number] In House Cra: Dom Fowler MD #### CP #### [address] [place] [id number] In House Cra: Shakeel Graham MD Type + Scrnon 11-19 Type + Scrn Negative Normal [facility] Comment on above: Performed By: #### H IVCMB, PHEP #### [address] [address] In House Cra: Dom Fowler MD #### CP #### [address] [place] [id number] In House Cra: Shakeel Graham MD Toxicology [facility], [facility] Amphetamine(s),Ur Negative Normal NEG [facility] Comment on above: Performed By: #### H IVCMB, PHEP #### [address] [address] In House Cra: Dom Fowler MD #### CP #### [address] [place], [place] [id number] In House Cra: Shakeel Graham MD Barbiturate(s),Ur Negative Normal NEG [facility] Comment on above: Performed By: #### H IVCMB, PHEP #### [address] [address] In House Cra: Dom Fowler MD #### CP #### [address] [place] [address] In House Cra: Shakeel Graham MD Benzodiazepine(s) Negative Normal NEG [facility] Comment on above: Performed By: #### H IVCMB, PHEP #### [facility] [address] [place] [address] In House Cra: Dom Fowler MD #### CP #### [facility] [address] [place] [address] Dr. [place], [place] [phone] In House Cra: Shakeel Graham MD Buprenorphrine, Ur Negative Normal NEG [facility] Comment on above: Performed By: #### H IVCMB, PHEP #### [address] [address] In House Cra: Dom Fowler MD #### CP #### [facility] [address] [place] [address] [place] [address] In House Cra: Shakeel Graham MD Cannabinoid(s),Ur Negative Normal NEG [facility] Comment on above: Performed By: #### H IVCMB, PHEP #### [address] [address] In House Cra: Dom Fowler MD #### CP #### [facility] [address] [place] [address] Dr. [place] [phone] In House Cra: Shakeel Graham MD Cocaine Metabolite Negative Normal [facility] Comment on above: Performed By: #### H IVCMB, PHEP #### [address] [address] In House Cra: Dom Fowler MD #### CP #### [facility] [address] [place] [address] Dr. [place], [place] [id number] In House Cra: Shakeel Graham MD Methadone Ql (U) Negative Normal NEG [facility] Comment on above: Performed By: #### H IVCMB, PHEP #### [address] [address] In House Cra: Dom Fowler MD #### CP #### [facility] [address] [place] [address] Dr. [place], [place] [id number] In House Cra: Shakeel Graham MD Methamphetamine, Ur Negative Normal NEG [facility] Comment on above: Performed By: #### H IVCMB, PHEP #### [facility] [address] [place] [address] In House Cra: Dom Fowler MD #### CP #### [address] [place], [place] [phone] In House Cra: Shakeel Graham MD Opiate(s), Ur Negative Normal NEG [facility] Comment on above: Performed By: #### H IVCMB, PHEP #### [address] [address] In House Cra: Dom Fowler MD #### CP #### [address] [place], [place] [id number] In House Cra: Shakeel Graham MD Oxycodone, Urine Negative Normal NEG [facility] Comment on above: Performed By: #### H IVCMB, PHEP #### [facility] [address] [place] [address] In House Cra: Dom Fowler MD #### CP #### [address] [place], [place] [phone] In House Cra: Shakeel Graham MD Phencyclidine, Ur Negative Normal NEG [facility] Comment on above: Performed By: #### H IVCMB, PHEP #### [address] [address] In House Cra: Dom Fowler MD #### CP #### [address] [place], [place] [id number] In House Cra: Shakeel Graham MD Propoxyphene,Urine Negative Normal NEG [facility] Comment on above: Performed By: #### H IVCMB, PHEP #### [address] [address] In House Cra: Dom Fowler MD #### CP #### [facility] [address] [place] [address] [place] [address] In House Cra: Shakeel Graham MD Tricyclic antidepressants Screen Ql (U) Negative Normal NEG [facility] Comment on above: Result Comment: Drug screen results are to be used for medical purposes only. All positive results are unconfirmed. Testing for employment or legal uses should be sent to a reference laboratory for confirmation. Performed By: #### H IVCMB, PHEP #### [address] [address] In House Cra: Dom Fowler MD #### CP #### [address] [place], [place] [phone] In House Cra: Shakeel Graham MD Interpretive Info NOT REPORTED Normal [facility] Comment on above: Performed By: #### H IVCMB, PHEP #### [address] [address] In House Cra: Dom Fowler MD #### CP #### [address] [place], [place] [phone] In House Cra: Shakeel Graham MD MDMA, Urine NOT REPORTED Normal NEG [facility] Comment on above: Performed By: #### H IVCMB, PHEP #### [address] [address] In House Cra: Dom Fowler MD #### CP #### [facility] [address] [place] [address] Dr. [place], [place] [phone] In House Cra: Shakeel Graham MD Urine Drug Screen, Magda grieron 11-20-2019 Amphetamine Screen, Ur Negative NEGATIVE [facility] [place] Barbiturate Screen, Ur Negative NEGATIVE [facility] [place] Benzodiazepine Screen, Urine Negative NEGATIVE [facility] [place] Buprenorphine Urine Negative NEGATIVE [facility] [place] Cannabinoid Scrn, Ur Negative NEGATIVE [facility] [place] Cocaine Metabolite, Urine Negative NEGATIVE [facility] [place] MDMA, Urine NOT REPORTED NEGATIVE [facility] [place] Methadone Screen, Urine Negative NEGATIVE [facility] [place] Methamphetamine, Urine Negative NEGATIVE [facility] [place] Opiates, Urine Negative NEGATIVE [facility] [place] Oxycodone Screen, Ur Negative NEGATIVE [facility] [place] Phencyclidine, Urine Negative NEGATIVE [facility] [place] Propoxyphene, Urine Negative NEGATIVE [facility] [place] Test Information NOT REPORTED [facility] [place] Tricyclic Antidepressants, Urine Negative NEGATIVE [facility] [place] Comment on above: Drug screen results are to be used for medical purposes only. All positive results are unconfirmed. Testing for employment or legal uses should be sent to a reference laboratory for confirmation. Chlamydia/GC DNA, Uron 06-20 Chlamydia Probe, Ur Negative Normal NEG [facility] Comment on above: Result Comment: CHLA MYDIA [...] nucleic acid target. Performed By: #### U [facility] #### [address] [place] [address] In House Cra: Dom Fowler MD Gonorrhea Probe, Ur Negative Normal NEG [facility] Comment on above: Result Comment: NEIS SERIA [...] target. Performed By: #### U CGP #### [address] [address] In House Cra: Dom Fowler MD Cult,Urineon 06-20-2019 Cult,Urine Specimen Description .CLEAN CATCH URINE Special Requests NOT REPORTED Culture NO SIGNIFICANT GROWTH Report Status FINAL 06/20/2019 Normal [facility] Comment on above: Performed By: #### H IVCMB, PHEP #### [address] [address] In House Cra: Dom Fowler MD #### CP #### [facility] [address] [place] [address] In House Cra: Shakeel Graham MD HIV Ag/Abon 06-20-2019 HIV Ag/Ab NONREACTIVE Normal [facility] Comment on above: Result Comment: No l aboratory evidence of HIV infection. If acute HIV infection is suspected, consider testing for HIV-1 RNA. Performed By: #### A HCV, HIVCMB #### [address] [address] In House Cra: Dom Fowler MD Hep C Abon 06-20-2019 Hep C Ab REACTIVE Abnormal [facility] Comment on above: Result Comment: The [...] Performed By: #### A HCV, HIVCMB #### [address] [address] In House Cra: Dom Fowler MD Profileon 9 T.pallidum Ab Screen NONREACTIVE Normal [facility] Comment on above: Result Comment: T. pallidum antibodies are not detected. There is no serological evidence of infection with T. pallidum (early primary syphilis cannot be excluded). Retest in 2-4 weeks if syphilis is clinically suspect. Performed By: #### P RENAT #### [address] [place] [address] In House Cra: Dom Fowler MD [facility] [address] [place] [address] Dr. [place], [place] [phone] In House Cra: Shakeel Graham MD Hep B Surf Ag NONREACTIVE Normal NR [facility] Comment on above: Performed By: #### P RENAT #### [address] [address] In House Cra: Dom Fowler MD [address] [place] [phone] In House Cra: Shakeel Graham MD Rubella Ab, IgG 286.1 IU/mL Normal [facility] Comment on above: Result Comment: REFERENCE RANGE: <5.0 NON-REACTIVE (non-immune) 5.0 TO 9.9 EQUIVOCAL >=10.0 REACTIVE (immune) Performed By: #### P RENAT #### [address] [address] In House Cra: Dom Fowler MD [address] [place], [facility]83 In House Cra: Shakeel Graham MD HCG, Quanton 06-19-2019 HCG, Quant [address] IU/L High <5 [facility] Comment on above: Result Comment: Non-preg premeno <=5 Postmeno <=8 Male <=3 If HCG results do not concur with clinical observations, additional testing to confirm results is recommended. Elevated results not associated with may be found in patients with other diseases such as tumors of the germ cells (testis, ovaries, etc.), bladder, pancreas, stomach, lungs, and liver. Performed By: #### B HCG #### [facility] [address] [place] [address] [place] [address] In House Cra: Shakeel Graham MD HCG, Quantitative, on 06-19-2019 hCG Quant 00063 High <5 IU/L [place] Comment on above: Non-preg premeno <=5 Postmeno <=8 Male <=3 If HCG results do not concur with clinical observations, additional testing to confirm results is recommended. Elevated results not associated with may be found in patients with other diseases such as tumors of the germ cells (testis, ovaries, etc.), bladder, pancreas, stomach, lungs, and liver. Interpretation and review of laboratory results Abnormal [place] HIV Screenon 06-19-2019 HIV Ag/Ab NONREACTIVE NONREACTIVE [place], [place] Comment on above: No laboratory eviden ce of HIV infection. If acute HIV infection is suspected, consider testing for HIV-1 RNA. Hepatitis C Antibodyon 06-19 Hepatitis C Ab REACTIVE Abnormal [facility]REACTIVE [facility] [place] [place] Comment on above: The hepatitis C [...] Interpretation and review of laboratory results Abnormal [place] PROFILE Ion 019 Basophils (Bld) [#/Vol] 10*3/uL [place] Basophils/100 WBC (Bld) 1 % 0 - 2 % [place] Differential Type NOT REPORTED [place] Eosinophils (Bld) [#/Vol] 0.09 10*3/uL [place] Eosinophils/100 WBC (Bld) 2 % 1 - 4 % [place] Erythrocyte distribution width (RBC) [Ratio] 15.7 % High 11.8 - 14.4 % [place] Hematocrit (Bld) [Volume fraction] 36.5 % 36.3 - 47.1 % [place] Hemoglobin (Bld) [Mass/Vol] 11.2 g/dL Low 11.9 - 15.1 g/dL [place] Hepatitis B Surface Ag NONREACTIVE NONREACTIVE [place] Immature granulocytes (Bld) [#/Vol] 0 % 0 [place] Immature granulocytes (Bld) [#/Vol] 10*3/uL [place] Interpretation and review of laboratory results Abnormal [place] Lymphocytes (Bld) [#/Vol] 1.98 10*3/uL [place] Lymphocytes/100 WBC (Bld) 46 % High 24 - 43 % [place] MCH (RBC) [Entitic mass] 25.6 pg 25.2 - 33.5 pg [place] MCHC (RBC) [Mass/Vol] 30.7 g/dL 28.4 - 34.8 g/dL [place] MCV (RBC) [Entitic vol] 83.3 fL 82.6 - 102.9 fL [place] Monocytes (Bld) [#/Vol] 0.37 10*3/uL [place] Monocytes/100 WBC (Bld) 9 % 3 - 12 % [place] Platelet mean volume (Bld) [Entitic vol] 11.6 fL 8.1 - 13.5 fL [place] Platelets (Bld) [#/Vol] NOT REPORTED [place] Platelets (Bld) [#/Vol] 196 10*3/uL [place] RBC (Bld) [#/Vol] 4.38 10*6/uL 3.95 - 5.1 1 m/uL [place] RBC morphology finding Nom (Bld) NOT REPORTED [place] Rubella virus IgG Ql (S) 286.1 IU/mL [place] Comment on above: REFERENCE RANGE: <5.0 NON-REACTIVE (non-immune) 5.0 TO 9.9 EQUIVOCAL >=10.0 REACTIVE (immune) Segmented neutrophils/100 WBC (Bld) 42 % 36 - 65 % [place] Segs Absolute 1.75 [place] T. pallidum, IgG NONREACTIVE NONREACTIVE [place] Comment on above: T. pallidum antibodies are not detected. There is no serological evidence of infection with T. pallidum (early primary syphilis cannot be excluded). Retest in 2-4 weeks if syphilis is clinically suspect. WBC (Bld) [#/Vol] 4.2 10*3/uL [place] WBC (Bld) [#/Vol] 0.0 10*3/uL 0.0 per 100 WBC [place], [place] WBC Morphology NOT REPORTED [place], [place] TYPE AND SCREENon 1 ABO/Rh Positive [place] Profileon 9 Abs. Basophil <0.03 Normal 0.00-0.20 [facility] Comment on above: Performed By: #### P RENAT #### [address] [address] In House Cra: Dom Fowler MD [address] [place] [id number] In House Cra: Shakeel Graham MD Abs.Imm.Granulocyte <0.03 Normal 0.00-0.30 [facility] Comment on above: Performed By: #### P RENAT #### [address] [address] In House Cra: Dom Fowler MD [address] [place] [id number] In House Cra: Shakeel Graham MD Abs.Neutrophil (Seg) 1.75 k/uL Normal 1.50-8.10 [facility] Comment on above: Performed By: #### P RENAT #### [address] [address] In House Cra: Dom Fowler MD [address] [place] [id number] In House Cra: Shakeel Graham MD Basophils/100 WBC (Bld) 1 % Normal 0-2 [facility] Comment on above: Performed By: #### P RENAT #### [address] [address] In House Cra: Dom Fowler MD [address] Felix [facility]83 In House Cra: Shakeel Graham MD Eosinophils (Bld) [#/Vol] 0.09 10*3/uL Normal 0.00-0.44 [facility] Comment on above: Performed By: #### P RENAT #### [address] [address] In House Cra: Dom Fowler MD [address] [place] [id number] In House Cra: Shakeel Graham MD Eosinophils/100 WBC (Bld) 2 % Normal 1-4 [facility] Comment on above: Performed By: #### P RENAT #### [address] [address] In House Cra: Dom Fowler MD [address] [place] [phone] In House Cra: Shakeel Graham MD Erythrocyte distribution width (RBC) [Ratio] 15.7 % High 11.8-14.4 [facility] Comment on above: Performed By: #### P RENAT #### [address] [address] In House Cra: Dom Fowler MD [address] [place] [phone] In House Cra: Shakeel Graham MD Hematocrit (Bld) [Volume fraction] 36.5 % Normal 36.3-47.1 [facility] Comment on above: Performed By: #### P RENAT #### [address] [address] In House Cra: Dom Fowler MD [address] [place] [phone] In House Cra: Shakeel Graham MD Hemoglobin (Bld) [Mass/Vol] 11.2 g/dL Low 11.9-15.1 [facility] Comment on above: Performed By: #### P RENAT #### [address] [place] [address] In House Cra: Dom Fowler MD [facility] [address] [place] [address] Dr. [place] 8984483 In House Cra: Shakeel Graham MD Immature granulocytes (Bld) [#/Vol] 0 % Normal 0 [facility] Comment on above: Performed By: #### P RENAT #### [address] [address] In House Cra: Dom Fowler MD [facility] [address] [place] [address] Dr. [place] 8984483 In House Cra: Shakeel Graham MD Lymphocytes (Bld) [#/Vol] 1.98 10*3/uL Normal 1.10-3.70 [facility] Comment on above: Performed By: #### P RENAT #### [address] [address] In House Cra: Dom Fowler MD [address] [place] [address] In House Cra: Shakeel Graham MD Lymphocytes/100 WBC (Bld) 46 % High 24-43 [facility] Comment on above: Performed By: #### P RENAT #### [address] [address] In House Cra: Dom Fowler MD [facility] [address] [place] [address] [place] [phone] In House Cra: Shakeel Graham MD MCH (RBC) [Entitic mass] 25.6 pg Normal 25.2-33.5 [facility] Comment on above: Performed By: #### P RENAT #### [address] [address] In House Cra: Dom Fowler MD [address] [place], [place] 1051283 In House Cra: Shakeel Graham MD MCHC (RBC) [Mass/Vol] 30.7 g/dL Normal 28.4-34.8 [facility] Comment on above: Performed By: #### P RENAT #### [address] [address] In House Cra: Dom Fowler MD [address] [place] [phone] In House Cra: Shakeel Graham MD MCV (RBC) [Entitic vol] 83.3 fL Normal 82.6-102.9 [facility] Comment on above: Performed By: #### P RENAT #### [address] [address] In House Cra: Dom Fowler MD [address] [place] [phone] In House Cra: Shakeel Graham MD Monocytes (Bld) [#/Vol] 0.37 10*3/uL Normal 0.10-1.20 [facility] Comment on above: Performed By: #### P RENAT #### [address] [address] In House Cra: Dom Fowler MD [address] [place] [address] In House Cra: Shakeel Graham MD Monocytes/100 WBC (Bld) 9 % Normal 3-12 [facility] Comment on above: Performed By: #### P RENAT #### [address] [address] In House Cra: Dom Fowler MD [address] [place] [phone] In House Cra: Shakeel Graham MD Neutrophil (Seg) 42 % Normal 36-65 [facility] Comment on above: Performed By: #### P RENAT #### [address] [place] [address] In House Cra: Dom Fowler MD [address] [place] [phone] In House Cra: Shakeel Graham MD NRBC Automated 0.0 per 100 WBC Normal 0.0 [facility] Comment on above: Performed By: #### P RENAT #### [address] [address] In House Cra: Dom Fowler MD [address] [place] [facility]83 In House Cra: Shakeel Graham MD Platelet mean volume (Bld) [Entitic vol] 11.6 fL Normal 8.1-13.5 [facility] Comment on above: Performed By: #### P RENAT #### [address] [address] In House Cra: Dom Fowler MD [address] [place] [phone] In House Cra: Shakeel Graham MD Platelets (Bld) [#/Vol] 196 10*3/uL Normal 138-453 [facility] Comment on above: Performed By: #### P RENAT #### [address] [address] In House Cra: Dom Fowler MD [address] [place] [phone] In House Cra: Shakeel Graham MD RBC (Bld) [#/Vol] 4.38 10*6/uL Normal 3.95-5.11 [facility] Comment on above: Performed By: #### P RENAT #### [address] [address] In House Cra: Dom Fowler MD [address] [place] [address] In House Cra: Shakeel Graham MD WBC (Bld) [#/Vol] 4.2 10*3/uL Normal 3.5-11.3 [facility] Comment on above: Performed By: #### P RENAT #### [address] [address] In House Cra: Dom Fowler MD [address] [place] [address] In House Cra: Shakeel Graham MD Auto Diff Performed NOT REPORTED Normal [facility] Comment on above: Performed By: #### P RENAT #### [address] [address] In House Cra: Dom Fowler MD [address] [place] [address] In House Cra: Shakeel Graham MD Platelets (Bld) [#/Vol] NOT REPORTED Normal [facility] Comment on above: Performed By: #### P RENAT #### [address] [address] In House Cra: Dom Fowler MD [address] [place] [address] In House Cra: Shakeel Graham MD RBC morphology finding Nom (Bld) NOT REPORTED Normal [facility] Comment on above: Performed By: #### P RENAT #### [address] [address] In House Cra: Dom Fowler MD [address] [place] [address] In House Cra: Shakeel Graham MD WBC Morphology NOT REPORTED Normal [facility] Comment on above: Performed By: #### P RENAT #### [address] [address] In House Cra: Dom Fowler MD [address] [place] [phone] In House Cra: Shakeel Graham MD Type + Scrnon 06-19 Type + Scrn Negative [facility] Comment on above: Performed By: #### P RTYS #### [facility] [address] [place], [place] [phone] In House Cra: Shakeel Graham MD Toxicology Scree, Urineon Amphetamine(s),Ur Negative Normal NEG [facility] Comment on above: Performed By: #### C PDAU #### [facility] [address] [place], [place] [phone] In House Cra: Shakeel Graham MD Barbiturate(s),Ur Negative Normal NEG [facility] Comment on above: Performed By: #### C PDAU #### [facility] [address] [place], [facility]83 In House Cra: Shakeel Graham MD Benzodiazepine(s) Negative Normal [facility] Comment on above: Performed By: #### C PDAU #### [facility] [address] [place] [phone] In House Cra: Shakeel Graham MD Buprenorphrine, Ur Negative Normal [facility] Comment on above: Performed By: #### C PDAU #### [facility] [address] [place], [facility]83 In House Cra: Shakeel Graham MD Cannabinoid(s),Ur Negative Normal NEG [facility] Comment on above: Performed By: #### C PDAU #### [facility] [address] [place], [place] [id number] In House Cra: Shakeel Graham MD Cocaine Metabolite Negative Normal [facility] Comment on above: Performed By: #### C PDAU #### [facility] [address] [place], [place] [phone] In House Cra: Shakeel Graham MD Methadone Ql (U) Negative Normal NEG [facility] Comment on above: Performed By: #### C PDAU #### [facility] [address] [place], [place] [phone] In House Cra: Shakeel Graham MD Methamphetamine, Ur Negative Normal NEG [facility] Comment on above: Performed By: #### C PDAU #### [facility] [address] [place], [place] [phone] In House Cra: Shakeel Graham MD Opiate(s), Ur Negative Normal NEG [facility] Comment on above: Performed By: #### C PDAU #### [facility] [address] [place] [address] In House Cra: Shakeel Graham MD Oxycodone, Urine Negative Normal NEG [facility] Comment on above: Performed By: #### C PDAU #### [facility] [address] [place], [place] 5386983 In House Cra: Shakeel Graham MD Phencyclidine, Ur Negative Normal [facility] Comment on above: Performed By: #### C PDAU #### [facility] [address] [place], [place] [phone] In House Cra: Shakeel Graham MD Propoxyphene,Urine Negative Normal NEG [facility] Comment on above: Performed By: #### C PDAU #### [facility] [address] [place], [place] [phone] In House Cra: Shakeel Graham MD Tricyclic antidepressants Screen Ql (U) Positive Abnormal NEG [facility] Comment on above: Result Comment: Drug screen results are to be used for medical purposes only. All positive results are unconfirmed. Testing for employment or legal uses should be sent to a reference laboratory for confirmation. Performed By: #### C PDAU #### [facility] [address] [place] [address] In House Cra: Shakeel Graham MD Interpretive Info NOT REPORTED Normal [facility] Comment on above: Performed By: #### C PDAU #### [facility] [address] [place] [address] In House Cra: Shakeel Graham MD MDMA, Urine NOT REPORTED Normal NEG [facility] Comment on above: Performed By: #### C PDAU #### [facility] [address] [place] [address] In House Cra: Shakeel Graham MD Urine Drug Screen, Magda [...] HIV Ag/Ab NONREACTIVE Normal NR [facility] Comment on above: Result Comment: No l aboratory evidence of HIV infection. If acute HIV infection is suspected, consider testing for HIV-1 RNA. Performed By: #### H IVCMB, PHEP #### [facility] [place] [address] In House Cra: Dom Fowler MD #### CP #### [facility] [address] [place], [place] [phone] In House Cra: Shakeel Graham MD Hepatitis Acute [facility] 05-10 Hep A Ab,IgM NONREACTIVE Normal NR [facility] Comment on above: Performed By: #### H IVCMB, PHEP #### [address] [address] In House Cra: Dom Fowler MD #### CP #### [address] [place] [address] In House Cra: Shakeel Graham MD Hep B Core Ab,IgM NONREACTIVE Normal [facility] Comment on above: Performed By: #### H IVCMB, PHEP #### [address] [address] In House Cra: Dom Fowler MD #### CP #### [facility] [address] [place] [address] Dr. [place], [place] 5458583 In House Cra: Shakeel Graham MD Hep B Surf Ag NONREACTIVE Normal [facility] Comment on above: Performed By: #### H IVCMB, PHEP #### [address] [address] In House Cra: Dom Fowler MD #### CP #### [facility] [address] [place] [address] Dr. [place], [place] [phone] In House Cra: Shakeel Graham MD Hep C Ab REACTIVE Abnormal [facility] Comment on above: Result Comment: The [...] Performed By: #### H IVCMB, PHEP #### [address] [place] [address] In House Cra: Dom Fowler MD #### CP #### [facility] [address] [place] [address] [place], [place] 8327583 In House Cra: Shakeel Graham MD Comp Metabolic Profon 2018 (cont.) Normal [facility] Comment on above: Result Comment: Aver age GFR for 20-29 years old: 116 mL/min/1.73sq m Chronic Kidney Disease: <60 mL/min/1.73sq m Kidney failure: <15 mL/min/1.73sq m eGFR calculated using average adult body mass. Additional eGFR calculator available at: http://[email or web address]/multiple_crcl_2011.htm Performed By: #### H IVCMB, PHEP #### [address] [address] In House Cra: Dom Fowler MD #### CP #### [facility] [address] [place] [address] [place], [place] [phone] In House Cra: Shakeel Graham MD Albumin [Mass/Vol] 4.3 g/dL Normal 3.5-5.2 [facility] Comment on above: Performed By: #### H IVCMB, PHEP #### [address] [address] In House Cra: Dom Fowler MD #### CP #### [address] [place], [place] [phone] In House Cra: Shakeel Graham MD Albumin/Globulin [Mass ratio] 1.4 {ratio} Normal 1.0-2.5 [facility] Comment on above: Performed By: #### H IVCMB, PHEP #### [address] [address] In House Cra: Dom Fowler MD #### CP #### [facility] [address] [place], [place] [id number] In House Cra: Shakeel Graham MD Alkaline Phos 50 U/L Normal 35-104 [facility] Comment on above: Performed By: #### H IVCMB, PHEP #### [address] [address] In House Cra: Dom Fowler MD #### CP #### [facility] [address] [place] [address] Dr. [place], [place] [id number] In House Cra: Shakeel Graham MD ALT [Catalytic activity/Vol] 9 U/L Normal 5-33 [facility] Comment on above: Performed By: #### H IVCMB, PHEP #### [address] [address] In House Cra: Dom Fowler MD #### CP #### [address] [place], [place] [id number] In House Cra: Shakeel Graham MD Anion gap [Moles/Vol] 8 mmol/L Low 9-17 [facility] Comment on above: Performed By: #### H IVCMB, PHEP #### [address] [address] In House Cra: Dom Fowler MD #### CP #### [address] [place], [place] [id number] In House Cra: Shakeel Graham MD AST [Catalytic activity/Vol] 15 U/L Normal <32 [facility] Comment on above: Performed By: #### H IVCMB, PHEP #### [address] [address] In House Cra: Dom Fowler MD #### CP #### [address] [place], [place] [id number] In House Cra: Shakeel Graham MD Bilirubin Ql (U) 0.31 mg/dL Normal 0.3-1.2 [facility] Comment on above: Performed By: #### H IVCMB, PHEP #### [facility] [address] [place] [address] In House Cra: Dom Fowler MD #### CP #### [facility] [address] [place], [place] [id number] In House Cra: Shakeel Graham MD BUN/CRE Ratio 20 Normal 9-20 [facility] Comment on above: Performed By: #### H IVCMB, PHEP #### [address] [address] In House Cra: Dom Fowler MD #### CP #### [facility] [address] [place], [place] [id number] In House Cra: Shakeel Graham MD Calcium [Mass/Vol] 9.4 mg/dL Normal 8.6-10.4 [facility] Comment on above: Performed By: #### H IVCMB, PHEP #### [address] [address] In House Cra: Dom Fowler MD #### CP #### [facility] [address] [place] [address] Dr. [place], [place] [id number] In House Cra: Shakeel Graham MD Chloride [Moles/Vol] 102 mmol/L Normal 98-107 [facility] Comment on above: Performed By: #### H IVCMB, PHEP #### [address] [address] In House Cra: Dom Fowler MD #### CP #### [facility] [address] [place], [place] [id number] In House Cra: Shakeel Graham MD CO2 [Moles/Vol] 28 mmol/L Normal 20-31 [facility] Comment on above: Performed By: #### H IVCMB, PHEP #### [address] [address] In House Cra: Dom Fowler MD #### CP #### [facility] [address] [place], [place] [phone] In House Cra: Shakeel Graham MD Creatinine [Mass/Vol] 0.92 mg/dL High 0.50-0.90 [facility] Comment on above: Performed By: #### H IVCMB, PHEP #### [address] [address] In House Cra: Dom Fowler MD #### CP #### [address] [place] [address] In House Cra: Shakeel Graham MD GFR, Amer >60 Normal >60 [facility] Comment on above: Performed By: #### H IVCMB, PHEP #### [address] [address] In House Cra: Dom Fowler MD #### CP #### [facility] [address] [place] [address] Dr. [place], [place] [id number] In House Cra: Shakeel Graham MD GFR,non Amer >60 Normal >60 [facility] Comment on above: Performed By: #### H IVCMB, PHEP #### [address] [address] In House Cra: Dom Fowler MD #### CP #### [facility] [address] [place], [place] [phone] In House Cra: Shakeel Graham MD Glucose [Mass/Vol] 91 mg/dL Normal 70-99 [facility] Comment on above: Performed By: #### H IVCMB, PHEP #### [address] [address] In House Cra: Dom Fowler MD #### CP #### [facility] [address] [place] [address] Dr. [place], [place] [id number] In House Cra: Shakeel Graham MD Potassium [Moles/Vol] 4.3 mmol/L Normal 3.7-5.3 [facility] Comment on above: Performed By: #### H IVCMB, PHEP #### [address] [address] In House Cra: Dom Fowler MD #### CP #### [address] [place], [place] [phone] In House Cra: Shakeel Graham MD Protein [Mass/Vol] 7.4 g/dL Normal 6.4-8.3 [facility] Comment on above: Performed By: #### H IVCMB, PHEP #### [address] [address] In House Cra: Dom Fowler MD #### CP #### [address] [place], [place] [id number] In House Cra: Shakeel Graham MD Sodium [Moles/Vol] 138 mmol/L Normal 135-144 [facility] Comment on above: Performed By: #### H IVCMB, PHEP #### [address] [address] In House Cra: Dom Fowler MD #### CP #### [address] [place], [place] [id number] In House Cra: Shakeel Graham MD Staging: Normal [facility] Comment on above: Result Comment: Stag e 1: Some kidney damage normal GFR Stage 2: Mild kidney damage GFR 60-89 Stage 3: Moderate kidney damage GFR 30-59 Stage 4: Severe kidney damage GFR 15-29 Stage 5: Severe kidney damage GFR <15 ESRD - chronic treatment by dialysis or transplant Performed By: #### H IVCMB, PHEP #### [address] [id number] In House Cra: Dom Fowler MD #### CP #### [facility] [address] [place] [place] [address] In House Cra: Shakeel Graham MD Urea nitrogen [Mass/Vol] 18 mg/dL Normal 6-20 [facility] Comment on above: Performed By: #### H IVC, PHEP #### [facility] [address] [place], [place] [id number] In House Cra: Dom Fowler MD #### CP #### [facility] [address] [place] [address] In House Cra: Shakeel Graham MD [facility] Metabolic Pane [facility] 05-09-2019 Albumin [Mass/Vol] 4.3 g/dL 3.5 - 5.2 g/dL [place], [place] Albumin/Globulin [Mass ratio] 1.4 {ratio} [place] ALP [Catalytic activity/Vol] 50 U/L 35 - 104 U/L [place] ALT [Catalytic activity/Vol] 9 U/L 5 - 33 U/L [place] Anion gap [Moles/Vol] 8 mmol/L Low 9 - 17 mmol/L [place] AST [Catalytic activity/Vol] 15 U/L <32 [place] Bilirubin Ql (U) 0.31 mg/dL 0.3 - 1.2 mg/dL [place], [place] Bun/Cre Ratio 20 [place], [place] Calcium [Mass/Vol] 9.4 mg/dL 8.6 - 10. 4 mg/dL [place] Chloride [Moles/Vol] 102 mmol/L 98 - 107 mmol/L [place] CO2 [Moles/Vol] 28 mmol/L 20 - 31 mmol/L [place] Creatinine [Mass/Vol] 0.92 mg/dL High 0.5 - 0.9 mg/dL [place] GFR >60 >60 mL/min [place] GFR Non- >60 >60 mL/min [place] Glucose [Mass/Vol] 91 mg/dL 70 - 99 mg/dL [place] Interpretation and review of laboratory results Abnormal [place] Potassium [Moles/Vol] 4.3 mmol/L 3.7 - 5.3 mmol/L [place] Protein [Mass/Vol] 7.4 g/dL 6.4 - 8.3 g/dL [place] Sodium [Moles/Vol] 138 mmol/L 135 - 144 mmol/L [place] Urea nitrogen [Mass/Vol] 18 mg/dL 6 - 20 mg/dL [place] Hepatitis Panel, Acuteon HAV IgM IA Qn (S) NONREACTIVE NONREACTIVE [place] Hep B Core Ab, IgM NONREACTIVE NONREACTIVE [place] Hepatitis B Surface Ag NONREACTIVE NONREACTIVE [place] Hepatitis C Ab REACTIVE Abnormal NONREACTIVE [place], [place] Comment on above: The hepatitis C [...] Interpretation and review of laboratory results Abnormal [place] Metabolic Panelon 05-09-2019 GFR/1.73 sq M predicted among non-blacks MDRD (S/P/Bld) [Vol rate/Area] [place] Comment on above: Average GFR for 20-2 9 years old: 116 mL/min/1.73sq m Chronic Kidney Disease: <60 mL/min/1.73sq m Kidney failure: <15 mL/min/1.73sq m eGFR calculated using average adult body mass. Additional eGFR calculator available at: http://www.Trupanion/multiple_crcl_2012.htm Stage 1: Some kidney damage normal GFR Stage 2: Mild kidney damage GFR 60-89 Stage 3: Moderate kidney damage GFR 30-59 Stage 4: Severe kidney damage GFR 15-29 Stage 5: Severe kidney damage GFR <15 ESRD - chronic treatment by dialysis or transplant Drug Scr, Abuse, Uron 2017 Amphetamine(s),Ur Positive Abnormal NEG [facility] Comment on above: Result Comment: (Pos itive cutoff 1000 ng/mL) Performed By: #### D AU ####[address] [address] Barbiturate(s),Ur Negative Normal NEG [facility] Comment on above: Result Comment: (Pos itive cutoff 200 ng/mL) Performed By: #### D AU ####[address] [address] Base excess Negative Normal NEG [facility] Comment on above: Result Comment: (Pos itive cutoff 300 ng/mL) Performed By: #### D AU ####[address] [address] Benzodiazepine(s) Negative Normal NEG [facility] Comment on above: Result Comment: (Pos itive cutoff 200 ng/mL) Performed By: #### D AU ####[address] [address] Cannabinoid(s),Ur Negative Normal NEG [facility] Comment on above: Result Comment: (Pos itive cutoff 50 ng/mL) Performed By: #### D AU ####[address] [address] Interpretive Info Assay provides medical screening only. The absence of expected drug(s) and/or Normal [facility] Comment on above: Result Comment: meta bolite(s) may indicate diluted or adulterated urine, limitations of testing or timing of collection.Testing for legal purposes should be confirmed by another method. To request confirmation of test result, please call the lab within 7 days of sample submission.Performed at [address] [address] Performed By: #### D AU ####[address] [address] Opiate(s), Ur Negative Normal NEG [facility] Comment on above: Result Comment: (Pos itive cutoff 300 ng/mL) Performed By: #### D AU ####[address] [address] Oxycodone, Urine Negative Normal NEG [facility] Comment on above: Result Comment: (Pos itive cutoff 100 ng/mL) Performed By: #### D AU ####[address] [address] Phencyclidine, Ur Negative Normal NEG [facility] Comment on above: Result Comment: (Pos itive cutoff 25 ng/mL) Performed By: #### D AU ####[address] [address] Urine, methadone presence Negative Normal NEG [facility] Comment on above: Result Comment: (Pos itive cutoff 300 ng/mL) Performed By: #### D AU ####[address] [address] Buprenorphrine, Ur NOT REPORTED Normal NEG [facility] Comment on above: Performed By: #### D AU ####[address] [place] [address] MDMA, Urine NOT REPORTED Normal NEG [facility] Comment on above: Performed By: #### D AU ####[address] [place] [address] Methamphetamine, Ur NOT REPORTED Normal NEG [facility] Comment on above: Performed By: #### D AU ####[address] [address] Propoxyphene,Urine NOT REPORTED Normal NEG [facility] Comment on above: Performed By: #### D AU ####[facility] [place] [address] Urine, tricyclic antidepressants NOT REPORTED Normal NEG [facility] Comment on above: Performed By: #### D AU ####[address] [address] Lipid Profileon 11-05-2017 Cholesterol 137 mg/dL Normal <200 [facility] Comment on above: Result Comment: Chol esterol Guidelines: <200 Desirable 200-240 Borderline >240 Undesirable Performed By: #### L IPR ####[address] [address] Cholesterol to HDL Ratio 4.3 {ratio} Normal <5 [facility] Comment on above: Performed By: #### L IPR ####[facility] [place] [address] HDL Cholesterol 32 mg/dL Low >40 [facility] Comment on above: Result Comment: HDL Guidelines: <40 Undesirable 40-59 Borderline >59 Desirable Performed By: #### L IPR ####[address] [address] LDL Cholesterol 82 mg/dL Normal 0-130 [facility] Comment on above: Result Comment: LDL Guidelines: <100 Desirable 100-129 Near to/above Desirable 130-159 Borderline >159 UndesirableDirect (measured) LDL and calculated LDL are not interchangeable tests. Performed By: #### L IPR ####[address] [address] Triglyceride 113 mg/dL Normal <150 [facility] Comment on above: Result Comment: Trig lyceride Guidelines: <150 Desirable 150- 199 Borderline 200-499 High >499 Very high Based on AHA Guidelines for fasting triglyceride, June 2012.Performed at [facility] [address] [place] [address] Performed By: #### L IPR ####[facility] [place] [address] Cholesterol in VLDL mass conc NOT REPORTED Normal 10-16 [facility] Comment on above: Performed By: #### L IPR ####[facility] [place] [address] Encounters Encounter Date Encounter Type Care Provider Facility Start: 09-05-2023 End: 09-05-2023 ambulatory LUIS FELIPE HALL Not Available Start: 08-21-2023 End: 08-21-2023 ambulatory YOUSIF APARICIO Not Available Start: 08-01-2023 End: 08-01-2023 ambulatory LUIS FELIPE HALL Not Available Start: 12-21-2022 End: 12-21-2022 ambulatory IVAN CAMEJO . Facility:[facility] Start: 11-29-2022 End: 11-29-[address] RODO MENCHACA Facility:[facility] Start: 10-25-2022 [facility] Facility:[facility] Start: 10-11-2022 End: 10-11-[address] CHRISTINE SÁNCHEZ Facility:[facility] Start: 09-12-2022 End: 09-13-[address] YOUSIF APARICIO . Facility:[facility] Start: 08-19-2022 Encounter for preprocedural laboratory examination DR YOUSIF APARICIO . [facility] Start: 08-18-2022 End: 08-18-[address] YOUSIF APARICIO . Facility:[facility] Start: 08-16-2022 End: 08-17-[address] YOUSIF APARICIO . Facility:[facility] Start: 08-16-2022 End: 08-17-2022 Encounter for preprocedural laboratory examination DR YOUSIF APARICIO . Facility:[facility] Start: 08-14-2022 End: 08-15-2022 [facility] Facility:[facility] Start: 07-27-2022 End: 07-28-[address] YOUSIF APARICIO . Facility:[facility] Start: 07-09-2022 End: 07-09-[address] ELISEO HARDING Facility: Start: 12-12-2021 Telephone encounter King zee MD Work Phone: Hematology/Oncology Comment on above: Lab Orders Start: 10-28-2021 Chart abstracting King fleming MD Work Phone: Hematology/Oncology Start: 04-26-2020 End: 04-27-2020 Patient encounter procedure ANTHONY PABON [facility] Start: 04-26-2020 End: 04-26-2020 Subsequent hospital visit by physician Rochelle ALFRED Laboratory Start: 03-16-2020 End: 03-17-2020 Emergency department patient visit [facility] Facility:[facility] Start: 11-20-2019 End: 11-21-2019 Patient encounter procedure [facility] Start: 11-20-2019 End: 11-20-2019 Subsequent hospital visit by physician Rochelle ALFRED Laboratory Comment on above: History of miscarria ge, currently ; Amenorrhea; Positive urine test; Encounter for supervision of normal in first trimester, unspecified ; Spotting in early Start: 06-19-2019 End: 06-20-2019 Patient encounter procedure [facility] Start: 06-19-2019 End: 06-19-2019 Subsequent hospital visit by physician Rochelle ALFRED Laboratory Comment on above: Amenorrhea; Positive urine test; Encounter for supervision of normal in first trimester, unspecified ; Spotting in early Start: 05-09-2019 End: 05-10-2019 Patient encounter procedure KADI DIXON [facility] Start: 05-09-2019 End: 05-09-2019 Subsequent hospital visit by physician Rochelle ALFRED Laboratory Start: 11-05-2017 End: 11-07-2017 Evaluation and management of inpatient ANGELO SPICER [facility] Procedures Date Procedure Procedure Detail Performing Clinician Start: 04-26-2020 Acute hepatitis panel D AWN DESTINY Start: 04-26-2020 Antibody hiv-1&hiv-2 single result KADI DESTINY Start: 04-26-2020 Blood count complete automated KADI DESTINY Start: 04-26-2020 Comprehensive metabo lic panel KADI DESTINY Start: 04-26-2020 Gonadotropin chorion ic qualitative KADI DESTINY Start: 04-26-2020 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 KADI DESTINY Start: 04-26-2020 Acute hepatitis panel [...] SPICER Start: 11-05-2017 Lipid panel ANGELO BARRIOS DIRECTOR REGULATORY AGENCY Start: 11-05-2017 DIET GENERAL ANGELO DIRECTOR REGULATORY AGENCY Start: 11-05-2017 FULL CODE ANGELO DIRECTOR REGULATORY AGENCY Start: 11-05-2017 IP CONSULT TO HISTOR Y [...] deficiency anemia type Expected: 12/12/2021, Expires: 02/11/2022 [facility] Work Phone: Comment on above: Expected: 12/12/2021 , Expires: 02/11/2022 Start: 05-18-2021 Influenza vaccination INFLUENZA (#1) [facility] Start: 06-26-2020 Cervical cancer screen [facility]ervical [facility] [place] Comment on above: Postponed from 01/11 (Not Indicated) Start: 06-26-2020 Screening for malign ant neoplasm of cervix Cervical cancer [place] Comment on above: Postponed from 01/11 (Not Indicated) Start: 05-18-2020 Influenza vaccination Flu vaccine (# 1) [place] Start: 11-21-2019 End: 11-21-2019 Ancillary Procedure 11/21/2019 Ancillary Procedure Obstetrics and Gynecology [facility] Start: 06-26-2019 End: 06-26-2019 Routine 06/26/2019 Routine Obstetrics and Gynecology Georgette Leung APRN - [facility]RI[facility] [address] [place] [address] [phone] [facility]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: 05-18-2019 Influenza vaccination Flu vaccine (# 1) [place] Start: 2015 Cervical cancer screen Cervical canc er [place] Start: 2015 PAP TESTING PAP TESTING [facility] Start: 2013 DTaP/Tdap/Td vaccine (1 - Tdap) DTaP/Tdap/Td vaccine (1 - Tdap) [place] Start: 2013 Urine microalbumin profile DTAP,TDAP,TD (1 - Tdap) [facility] Start: 01-12-2012 HEPATITIS C SCREENING HEPATITIS C SC REENING [facility] Start: 01-12-2012 HIV SCREENING HIV SCREENING [facility] Start: 2009 HPV vaccine (1 - Fem larissa 3-dose series) HPV vaccine (1 - Female 3-dose series) [place] Start: 2007 Varicella Vaccine (1 of 2 - 13+ 2-dose series) Varicella Vaccine (1 of 2 - 13+ 2-dose series) [place] Start: 2006 Adult depression screening assessment DEPRESSION SCREENING [facility] Start: 2005 DTaP/Tdap/Td vaccine (1 - Tdap) DTaP/Tdap/Td vaccine (1 - Tdap) [place] Start: 2005 HPV vaccine (1 - 2-d ose series) HPV vaccine (1 - 2-dose series) [place] Start: 2005 HPV vaccine (1 - Fem larissa 2-dose series) HPV vaccine (1 - Female 2-dose series) [place] Start: 01-12-2000 Pneumococcal 0-64 ye ars Vaccine (1 of 1 - PPSV23) Pneumococcal 0-64 years Vaccine (1 of 1 - PPSV23) [place] Start: 1999 COVID-19 VACCINE (1) COVID-19 VACCIN E (1) [facility] Start: 1995 Varicella vaccine (1 of 2 - 2-dose childhood series) Varicella vaccine (1 of 2 - 2-dose childhood series) [place] End: 11-20-2019 Bacteria identified Cx Nom (U) Urine Culture Microbiology Routine Amenorrhea Positive urine test Encounter for supervision of normal in first trimester, unspecified 1 Occurrences starting 11/20/2019 until 11/20/2019 [place] Comment on above: 1 Occurrences starti ng 11/20/2019 until 11/20/2019 Bacteria identified Cx Nom (U) [place] End: 06-19-2019 Bacteria identified Cx Nom (U) Urine Culture Microbiology Routine Amenorrhea Positive urine test Encounter for supervision of normal in first trimester, unspecified 1 Occurrences starting 06/19/2019 until 06/19/2019 [place] Comment on above: 1 Occurrences starti ng 06/19/2019 until 06/19/2019 End: 11-20-2019 C.trachomatis N.gonorrhoeae DNA, Urine C.trachomatis N.gonorrhoeae DNA, Urine Microbiology Routine Amenorrhea Positive urine test Encounter for supervision of normal in first trimester, unspecified 1 Occurrences starting 11/20/2019 until 11/20/2019 [place] Comment on above: 1 Occurrences starti ng 11/20/2019 until 11/20/2019 C.trachomatis N.gonorrhoeae DNA, Urine [place] End: 06-19-2019 C.trachomatis N.gonorrhoeae DNA, Urine C.trachomatis N.gonorrhoeae DNA, Urine Microbiology Routine Amenorrhea Positive urine test Encounter for supervision of normal in first trimester, unspecified 1 Occurrences starting 06/19/2019 until 06/19/2019 [place] Comment on above: 1 Occurrences starti ng 06/19/2019 until 06/19/2019 End: 04-26-2020 Hepatitis C RNA, quantitative, PCR Hepatitis C RNA, quantitative, PCR Lab Routine Once for 1 Occurrences starting 04/26/2020 until 04/26/2020 [place] Comment on above: Once for 1 Occurrenc es starting 04/26/2020 until 04/26/2020 Hepatitis C RNA, quantitative, PCR Hepatitis C RNA, quantitative, PCR Lab Routine 04/26/2020 7:30 AM EDT [place] End: 05-09-2019 HIV Screen HIV Screen Lab Routine Once for 1 Occurrences starting 05/09/2019 until 05/09/2019 [place] Comment on above: Once for 1 Occurrenc es starting 05/09/2019 until 05/09/2019 HIV Screen HIV Screen Lab R outine 05/09/2019 2[facility] Routine Amenorrhea Positive urine test Encounter for supervision of normal in first trimester, unspecified 11/20/2019 12:26 PM EST [facility] Payers Date Payer Category Payer Medicaid [place] [employer] [employer] [id number] 2020-Present [phone] [address] [place], [place] [id number] Medicaid [id number] 2020 Unknown 2016 Unknown [facility] xxxxxxxxxxxx 2016-Present [phone] [place] [address] xxxxxxxxxxxx [id number] 1994 Unknown [id number] [id number] 1994 Unknown [id number] [id number]3 1994 Unknown [id number] 2.16.840.1.617936.3.579.2.173 1994 Unknown [id number] 2.16.840.1.404815.3.579.2.173 1994 Unknown [id number] 2.16.840.1.179752.3.579.2.173 1994 Unknown [id number] 2.16.840.1.225452.3.579.2.593 1994 Unknown [id number] 2.16840.1.658311.3.579.2.593 1994 Unknown [id number] 2.16.840.1.443748.3.579.2.593 1994 Unknown [id number] 2.16.840.1.038229.3.579.2.593 1994 Unknown [id number] 2.16.840.1.223741.3.579.2.593 1994 Unknown [id number] 2.16.840.1.420392.3.579.2.593 1994 Unknown [id number] 2.16.840.1.733421.3.579.2.593 1994 Unknown [id number] 2.16.840.1.372338.3.579.2.593 1994 Unknown [id number] 2.16.840.1.734467.3.579.2.593 1994 Unknown [id number] 2.16.840.1.396941.3.579.2.593 1994 Unknown [id number] 2.16.840.1.123506.3.579.2.125 9 1994 Unknown [id number] 2.16.840.1.697205.3.579.2.125 9 1994 Unknown [id number] [id number]5 9 1959 Unknown [id number] Social History Date Type Detail Facility Start: 11-05-2017 End: 10-28-2021 Tobacco smoking status NHIS Never smoker [facility] Start: 11-05-2017 End: 06-19-2019 Alcohol intake No [place] Start: 1994 Sex Assigned At Not on file [place] Start: 06-19-2019 End: 11-20-2019 Tobacco smoking status NHIS Current every day smoker [place] Start: 06-19-2019 End: 11-20-2019 Cigarettes smoked current (pack per day) - Reported [facility] Start: 11-20-2019 Alcohol intake Current non-dr quality process lead of alcohol (finding) [facility] Start: 05-01-2019 [facility] Guardado Start: 11-20-2019 End: 10-28-2021 Tobacco use and exposure Never used [facility] Start: 10-28-2021 End: 11-08-2021 Alcohol intake Ex-drinker (finding) [facility] Clinical Note 08-18-2022 Note Date & Type Note Facility 08-18-2022 Note OPERATIVE NOTE OPERATION DATE: 08/18/2022 PROCEDURE: Suction D AND C. PREOPERATIVE DIAGNOSIS: Missed . POSTOPERATIVE DIAGNOSIS: Missed . ANESTHESIA: General. SURGEON: Yousif Aparicio D.O. OCCUPATIONAL HEALTH PHYSICIAN: None. BLOOD LOSS: 75 mL. URINE OUTPUT: [...] products of conception were removed using a 10-Tuvaluan suction curette. Excellent hemostasis was noted. The patient tolerated the procedure well. Sponge, lap, and needle counts were correct x 2. All instruments were then removed from the patient's vagina. The patient was taken to the Recovery Room in stable condition. ?? [facility] Note 12-12-2021 Telephone Encounter - Angelia Almazan - 12/12/2021 11:16 AM EDT Note Date & Type Note Facility 12-12-2021 Miscellaneous Notes Pleases sign pending new cbc order. Thanks, Angelia Almazan MA documented in this encounter [facility] Progress note 11-08-2021 Note Date & Type Note Facility 11-08-2021 Note HNO ID: [id number] Author: King Suazo MD Service: ? Author [...] shortness of breath, and is seen at [place] emergency room. Labs revealed a hemoglobin of [...] biceps/brachioradial/patella/achilles. MUSCULOSKELETAL: Neg (more content not included)... 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 Advance Directives and Living Will 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 Latest Code Status on File Code Status [...] section and content) DATE CREATED AUTHOR 03/08/2018 [facility] DATE CREATED AUTHOR AUTHOR'S ORGANIZ ATION 04/08/2020 [facility] DATE CREATED AUTHOR AUTHOR'S ORGANIZ ATION 04/28/2020 [facility] DATE CREATED AUTHOR AUTHOR'S ORGANIZ ATION 12/13/2021 [facility] DATE CREATED AUTHOR AUTHOR'S ORGANIZ ATION 12/25/2022 [facility] DATE CREATED AUTHOR AUTHOR'S ORGANIZ ATION 09/07/2023 [facility] EPIC Source Comments (unrecognize d section and content) In the event this informatio n is protected by the Federal Confidentiality of Alcohol and Drug Abuse Patient Records regulations: The Federal rules restrict any use of the information to criminally investigate or prosecute any alcohol or drug abuse patient.[facility] the event this information is protected by the Federal Confidentiality of Alcohol and Drug Abuse Patient Records regulations: The Federal rules restrict any use of the information to criminally investigate or prosecute any alcohol or drug abuse patient.[facility] Reason for Visit (unrecogniz ed section and content) Reason Comments Lab Orders Care Teams (unrecognized sec tion and content) 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 [employer] [facility]. provides no warranty or guarantee of the accuracy or completeness of information in this document.
--- OUTSIDE RECORDS SUMMARY | 2023-10-12 07:18 | XMS_ITS | CCD ---
Author Name Unknown Address [id number] [place] [address] Organization [facility] Care Team Providers Care Skiver Blockers Name Role Phone ANGELO SPICER Unavailable Unavailable LIGIA SPICEREEP Unavailable Unavailable ROCHELLE WILLMAS Unavailable Unavailable Rochelle Willams Primary Care Provider [phone] Lima Cornell Attending Unavailab le Rochelle Willams Primary Care Provider KADI SCHROEDER Referring Unavailable ROCHELLE WILLAMS Primary Care Unavailable [...] e MEAGHAN, DR ELISEO Malone Attending Unavailabl judith HARDING, DR ELISEO Malone Admitting UnavailKADI Darnell Primary Care Unavailable FELIX WEBB Consulting Unavailable GONZALO, DR CHRISTINE Benites Consulting Unavailable MYLES CAMARILLO Attending Unavailable MYLES CAMARILLO Admitting Unavailable [facility] Primary Care Unavaila MLYES Serna Consulting Unavailable IVAN KONG Consulting Unavailable [...] Consulting Unavailable LUIS FELIPE HALL Attending Unavailable LUIS FELIPE HALL Attending Unavailable ROBBY, YOUSIF Attending Unavailable LUIS FELIPE HALL Attending Unavailable Allergies Allergy Classification Reported Allergen(s) Allergy Type Date of Onset Reaction(s) Facility (1 source) No Known Medication Allergies; Translations: [No Known Medication Allergies] Propensity to adverse reactions to drug (disorder) [facility] Repository Medications Current Medications Medication Drug [...] tablet (3 sources) beta-Adrenergic Jared Start: 05-21-20 take 1 tablet by mouth twice daily [...] (2 sources) Serotonin Reuptake Inhibitor Start: 11-20-19 take 1 tablet by mouth once daily [...] Onset: 11-05-2017 Other aftercare (1 source) Other shelter (current) drug therapy; Translations: [[employer]PERATIONS CURRENT DRUG THERAPY] Onset: 12-25-2022 Episodic Other [...] Trimethoprim/Sulfamet hoxazole >=320 R F Normal [facility] Comment on above: Performed By: #### C BC #### [facility] [address] [place] [address] Dr. Hemanth Kerr CBC AUTO DIFFon 11-29-2022 BASO # 0.0 103/ul Normal 0.0-0.1 [facility] Comment on above: Performed By: #### C BC #### [facility] [address] [place] [address] Dr. Hemanth Kerr Basophils/100 WBC (Bld) 0.7 % Normal 0.2-2.0 [facility] Comment on above: Performed By: #### C BC #### [facility] [address] [place] [address] Dr. Hemanth Kerr EO # 0.2 103/ul Normal 0.0-0.7 [facility] Comment on above: Performed By: #### C BC #### [facility] [address] [place] [address] Dr. Hemanth Kerr Eosinophils/100 WBC (Bld) 3.3 % Normal 0.9-7.0 [facility] Comment on above: Performed By: #### C BC #### [facility] [address] [place] [address] Dr. Hemanth Kerr Erythrocyte distribution width (RBC) [Ratio] 14.3 % Normal 11.0-15.0 [facility] Comment on above: Performed By: #### C BC #### [facility] [address] [place] [address] Dr. Hemanth Kerr Hematocrit (Bld) [Volume fraction] 37.2 % Normal 36.0-48.0 [facility] Comment on above: Performed By: #### C BC #### [facility] [address] [place] [address] Dr. Hemanth Kerr Hemoglobin (Bld) [Mass/Vol] 11.9 g/dL Critically low 12.0-16.0 [facility] Comment on above: Performed By: #### C BC #### [facility] [address] [place] [address] Dr. Hemanth Kerr IG # 0.01 10e3/ul Normal 0.00-0.03 [facility] Comment on above: Performed By: #### C BC #### [facility] [address] [place] [address] Dr. Hemanth Kerr IG % 0.2 % Normal 0.0-0.5 [facility] Comment on above: Performed By: #### C BC #### [facility] [address] [place] [address] Dr. Hemanth Kerr LYMPH # 1.7 103/ul Normal 1.2-3.8 [facility] Comment on above: Performed By: #### C BC #### [facility] [address] [place] [address] Dr. Hemanth Kerr Lymphocytes/100 WBC (Bld) 31.3 % Normal 20.5-60.0 [facility] Comment on above: Performed By: #### C BC #### [facility] [address] [place] [address] Dr. Hemanth Kerr MANUAL DIFF REQ NO Normal [facility] Comment on above: Performed By: #### C BC #### [facility] [address] [place] [address] Dr. Hemanth Kerr MCH (RBC) [Entitic mass] 27.8 pg Normal 26.7-34.0 [facility] Comment on above: Performed By: #### C BC #### [facility] [address] [place] [address] Dr. Hemanth Kerr MCHC (RBC) [Mass/Vol] 32.0 g/dL Normal 29.9-35.2 [facility] Comment on above: Performed By: #### C BC #### [facility] [address] [place] [address] Dr. Hemanth Kerr MCV (RBC) [Entitic vol] 86.9 fL Normal 81.0-99.0 [facility] Comment on above: Performed By: #### C BC #### [facility] [address] [place] [address] Dr. Hemanth Kerr MONO # 0.4 103/ul Normal 0.3-0.8 [facility] Comment on above: Performed By: #### C BC #### [facility] [address] [place] [address] Dr. Hemanth Kerr Monocytes/100 WBC (Bld) 8.0 % Normal 1.7-12.0 [facility] Comment on above: Performed By: #### C BC #### [facility] [address] [address] [address] Hemanth Kerr NEUT # 3.1 103/ul Normal 1.4-6.5 [facility] Comment on above: Performed By: #### C BC #### [facility] [address] [place] [address] Dr. Hemanth Kerr Neutrophils/100 WBC (Bld) 56.5 % Normal 43.0-75.0 [facility] Comment on above: Performed By: #### C BC #### [facility] [address] [place] [address] Dr. Hemanth Kerr Platelet mean volume (Bld) [Entitic vol] 10.3 fL Normal 9.5-13.5 [facility] Comment on above: Performed By: #### C BC #### [facility] [address] [place] [address] Dr. Hemanth Kerr PLT 258 103/ul Normal 150-450 [facility] Comment on above: Performed By: #### C BC #### [facility] [address] [place] [address] Dr. Hemanth Kerr RBC 4.28 106/ul Normal 4.20-5.40 [facility] Comment on above: Performed By: #### C BC #### [facility] [address] [place] [address] Dr. Hemanth Kerr WBC 5.4 103/ul Normal 4.0-11.0 [facility] Comment on above: Performed By: #### C BC #### [facility] [address] [place] [address] Dr. Hemanth Kerr PROF 14(COMP METB)on 023 Albumin [Mass/Vol] 3.1 g/dL Critically low 3.4-5.0 [facility] Comment on above: Performed By: #### C MP #### [facility] [address] [place] [address] Dr. Hemanth Kerr Albumin/Globulin [Mass ratio] 1.3 {ratio} Normal [facility] Comment on above: Performed By: #### C MP #### [facility] [address] [address] [address] Hemanth Kerr ALP [Catalytic activity/Vol] 56 U/L Normal 46-116 [facility] Comment on above: Performed By: #### C MP #### [facility] [address] [address] [address] Hemanth Kerr ALT [Catalytic activity/Vol] 34 U/L Normal 14-59 [facility] Comment on above: Performed By: #### C MP #### [facility] [address] [place] [address] Dr. Hemanth Kerr Anion gap [Moles/Vol] 7.0 mmol/L Normal [facility] Comment on above: Performed By: #### C MP #### [facility] [address] [place] [address] Dr. Hemanth Kerr AST [Catalytic activity/Vol] 29 U/L Normal 15-37 [facility] Comment on above: Performed By: #### C MP #### [facility] [address] [place] [address] Dr. Hemanth Kerr Bilirubin [Mass/Vol] 0.4 mg/dL Normal 0.2-1.0 [facility] Comment on above: Performed By: #### C MP #### [facility] [address] [place] [address] Dr. Hemanth Kerr Calcium [Mass/Vol] 8.3 mg/dL Critically low 8.5-10.1 [facility] Comment on above: Performed By: #### C MP #### [facility] [address] [place] [address] Dr. Hemanth Kerr Chloride [Moles/Vol] 110 mmol/L Critically high 98-107 [facility] Comment on above: Performed By: #### C MP #### [facility] [address] [place] [address] Dr. Hemanth Kerr CO2 [Moles/Vol] 27.6 mmol/L Normal 21.0-32.0 [facility] Comment on above: Performed By: #### C MP #### [facility] [address] [place] [address] Dr. Hemanth Kerr Creatinine [Mass/Vol] 0.61 mg/dL Normal 0.55-1.02 [facility] Comment on above: Performed By: #### C MP #### [facility] [address] [place] [address] Dr. Hemanth Kerr EGFR-AF HONG KONGER >60 Normal >=60 [facility] Comment on above: Performed By: #### C MP #### [facility] [address] [address] [address] Hemanth Kerr EGFR-NON AF [place]ER >60 Normal >=60 [facility] Comment on above: Performed By: #### C MP #### [facility] [address] [place] [address] Dr. Hemanth Kerr Globulin (S) [Mass/Vol] 2.4 g/dL Normal [facility] Comment on above: Performed By: #### C MP #### [facility] [address] [place] [address] Dr. Hemanth Kerr Glucose [Mass/Vol] 110 mg/dL Critically high 74-106 [facility] Comment on above: Performed By: #### C MP #### [facility] [address] [place] [address] Dr. Hemanth Kerr Potassium [Moles/Vol] 2.6 mmol/L Critically low 3.5-5.1 [facility] Comment on above: Performed By: #### C MP #### [facility] [address] [place] [address] Dr. Hemanth Kerr Protein [Mass/Vol] 5.5 g/dL Critically low 6.4-8.2 [facility] Comment on above: Performed By: #### C MP #### [facility] [address] [place] [address] Dr. Hemanth Kerr Sodium [Moles/Vol] 142 mmol/L Normal 136-145 [facility] Comment on above: Performed By: #### C MP #### [facility] [address] [place] [address] Dr. Hemanth Kerr Urea nitrogen [Mass/Vol] 12.0 mg/dL Normal 7.0-18.0 [facility] Comment on above: Performed By: #### C MP #### [facility] [address] [address] [address] Hemanth Kerr Urea nitrogen/Creatinine [Mass ratio] 19.7 mg/mg Normal [facility] Comment on above: Performed By: #### C MP #### [facility] [address] [address] [address] Hemanth Kerr XR HIP LT 2 [...] ALIX GRANADOS Date: 2022-11-28 22:13 Normal [facility] ACETAMINOPHENon 11-28-2022 Acetaminophen [Mass/Vol] ug/mL Critically low 10.0-30.0 [facility] Comment on above: Performed By: #### C MP #### [facility] [address] [address] [address] Hemanth Kerr ACETONE SERUMon 11-28-2022 ACETONE Negative Normal NEGATIVE [facility] Comment on above: Performed By: #### P REG #### [facility] [address] [address] [address] Hemanth Kerr AMMONIAon 11-28-2022 Ammonia (P) [Moles/Vol] 24 umol/L Normal - [facility] Comment on above: Performed By: #### L ACT #### [facility] [address] [address] [address] Hemanth Kerr CBC AUTO DIFFon 11-28-2022 BASO # 0.0 103/ul Normal 0.0-0.1 [facility] Comment on above: Performed By: #### L ACT #### [facility] [address] [address] [address] Hemanth Kerr Basophils/100 WBC (Bld) 0.4 % Normal 0.2-2.0 [facility] Comment on above: Performed By: #### L ACT #### [facility] [address] [place] [address] Dr. Hemanth Kerr EO # 0.3 103/ul Normal 0.0-0.7 [facility] Comment on above: Performed By: #### L ACT #### [facility] [address] [place] [address] Dr. Hemanth Kerr Eosinophils/100 WBC (Bld) 3.1 % Normal 0.9-7.0 [facility] Comment on above: Performed By: #### L ACT #### [facility] [address] [place] [address] Dr. Hemanth Kerr Erythrocyte distribution width (RBC) [Ratio] 14.3 % Normal 11.0-15.0 [facility] Comment on above: Performed By: #### L ACT #### [facility] [address] [place] [address] Dr. Hemanth Kerr Hematocrit (Bld) [Volume fraction] 41.3 % Normal 36.0-48.0 [facility] Comment on above: Performed By: #### L ACT #### [facility] [address] [place] [address] Dr. Hemanth Kerr Hemoglobin (Bld) [Mass/Vol] 13.3 g/dL Normal 12.0-16.0 [facility] Comment on above: Performed By: #### L ACT #### [facility] [address] [place] [address] Dr. Hemanth Kerr IG # 0.02 10e3/ul Normal 0.00-0.03 [facility] Comment on above: Performed By: #### L ACT #### [facility] [address] [place] [address] Dr. Hemanth Kerr IG % 0.2 % Normal 0.0-0.5 [facility] Comment on above: Performed By: #### L ACT #### [facility] [address] [place] [address] Dr. Hemanth Kerr LYMPH # 2.4 103/ul Normal 1.2-3.8 [facility] Comment on above: Performed By: #### L ACT #### [facility] [address] [place] [address] Dr. Hemanth Kerr Lymphocytes/100 WBC (Bld) 26.3 % Normal 20.5-60.0 [facility] Comment on above: Performed By: #### L ACT #### [facility] [address] [place] [address] Dr. Hemanth Kerr MANUAL DIFF REQ NO Normal [facility] Comment on above: Performed By: #### L ACT #### [facility] [address] [place] [address] Dr. Hemanth Kerr MCH (RBC) [Entitic mass] 27.4 pg Normal 26.7-34.0 [facility] Comment on above: Performed By: #### L ACT #### [facility] [address] [place] [address] Dr. Hemanth Kerr MCHC (RBC) [Mass/Vol] 32.2 g/dL Normal 29.9-35.2 [facility] Comment on above: Performed By: #### L ACT #### [facility] [address] [place] [address] Dr. Hemanth Kerr MCV (RBC) [Entitic vol] 85.0 fL Normal 81.0-99.0 [facility] Comment on above: Performed By: #### L ACT #### [facility] [address] [place] [address] Dr. Hemanth Kerr MONO # 0.7 103/ul Normal 0.3-0.8 [facility] Comment on above: Performed By: #### L ACT #### [facility] [address] [place] [address] Dr. Hemanth Kerr Monocytes/100 WBC (Bld) 7.3 % Normal 1.7-12.0 [facility] Comment on above: Performed By: #### L ACT #### [facility] [address] [place] [address] Dr. Hemanth Kerr NEUT # 5.7 103/ul Normal 1.4-6.5 [facility] Comment on above: Performed By: #### L ACT #### [facility] [address] [address] [address] Hemanth Kerr Neutrophils/100 WBC (Bld) 62.7 % Normal 43.0-75.0 [facility] Comment on above: Performed By: #### L ACT #### [facility] [address] [address] [address] Hemanth Kerr Platelet mean volume (Bld) [Entitic vol] 10.6 fL Normal 9.5-13.5 [facility] Comment on above: Performed By: #### L ACT #### [facility] [address] [address] [address] Hemanth Kerr PLT 347 103/ul Normal 150-450 [facility] Comment on above: Performed By: #### L ACT #### [facility] [address] [place] [address] Dr. Hemanth Kerr RBC 4.86 106/ul Normal 4.20-5.40 [facility] Comment on above: Performed By: #### L ACT #### [facility] [address] [place] [address] Dr. Hemanth Kerr WBC 9.1 103/ul Normal 4.0-11.0 [facility] Comment on above: Performed By: #### L ACT #### [facility] [address] [place] [address] CSPINE WO CONon [...] KAMILLA MILLS Date: 2022-11-28 17:54 Normal [facility] CT HEAD WO CONon 11-28-2022 CT [...] KAMILLA MILLS Date: 2022-11-28 18:40 Normal [facility] CULTURE BLOODon 11-28-2022 Microscopic examination of blood, culture Culture Observations: NO GROWTH AT 5 DAYS. Normal [facility] Comment on above: Performed By: #### C BC #### [facility] [address] [place] [address] Dr. Hemanth Kerr Microscopic examination of blood, culture Culture Observations: NO GROWTH AT 5 DAYS. Normal [facility] Comment on above: Performed By: #### B [id number] #### [facility] [address] [place] [address] Dr. Hemanth Kerr [facility]15 SARS-CoV-2 (COVID-19) RNA ELMO+probe Ql (Unsp spec) Not detected Normal NOT DETECTED [facility] Comment on above: Result Comment: When [...] for this test is supported by the Rn Eligibility of Health and Human Service's declaration that [...] used). Performed By: #### L ACT #### [facility] [address] [place] [address] Dr. Hemanth Kerr DRUG SCREEN RAPID (URINE)on 11-28-2022 AMP Positive Abnormal NEGATIVE [facility] Comment on above: Performed By: #### P REG #### [facility] [address] [place] [address] Dr. Hemanth Kerr BAR Negative Normal NEGATIVE [facility] Comment on above: Performed By: #### P REG #### [facility] [address] [place] [address] Dr. Hemanth Kerr BUP Negative Normal NEGATIVE [facility] Comment on above: Performed By: #### P REG #### [facility] [address] [place] [address] Dr. Hemanth Kerr BZO Negative Normal NEGATIVE [facility] Comment on above: Performed By: #### P REG #### [facility] [address] [place] [address] Dr. Hemanth Kerr YOLANDA Negative Normal NEGATIVE [facility] Comment on above: Performed By: #### P REG #### [facility] [address] [place] [address] Dr. Hemanth Kerr CUT-OFFS SEE BELOW Normal [facility] Comment on above: Result Comment: AMP [...] ng/mL Performed By: #### P REG #### [facility] [address] [place] [address] Dr. Hemanth Kerr DRUG CUT HEADER DRUG CLASS TEST SYSTEM CUT-OFF CONCENTRATIONS ARE FOLLOWS: Normal [facility] Comment on above: Performed By: #### P REG #### [facility] [address] [place] [address] Dr. Hemanth Kerr mAMP Positive Abnormal NEGATIVE [facility] Comment on above: Performed By: #### P REG #### [facility] [address] [place] [address] Dr. Hemanth Kerr MTD Negative Normal NEGATIVE [facility] Comment on above: Performed By: #### P REG #### [facility] [address] [place] [address] Dr. Hemanth Kerr OPI Negative Normal NEGATIVE [facility] Comment on above: Performed By: #### P REG #### [facility] [address] [place] [address] Dr. Hemanth Kerr OXY Negative Normal NEGATIVE [facility] Comment on above: Performed By: #### P REG #### [facility] [address] [place] [address] Dr. Hemanth Kerr PCP Negative Normal NEGATIVE [facility] Comment on above: Performed By: #### P REG #### [facility] [address] [place] [address] Dr. Hemanth Kerr PPX Negative Normal NEGATIVE [facility] Comment on above: Performed By: #### P REG #### [facility] [address] [place] [address] Dr. Hemanth Kerr TCA Negative Normal NEGATIVE [facility] Comment on above: Performed By: #### P REG #### [facility] [address] [place] [address] Dr. Hemanth Kerr THC Negative Normal NEGATIVE [facility] Comment on above: Performed By: #### P REG #### [facility] [address] [place] [address] Dr. Hemanth Kerr ER URINE PROFILEon 3 Bilirubin Ql (U) Negative Normal NEGATIVE [facility] Comment on above: Performed By: #### P REG #### [facility] [address] [place] [address] Dr. Hemanth Kerr Clarity (U) CLEAR Normal CLEAR [facility] Comment on above: Performed By: #### P REG #### [facility] [address] [place] [address] Dr. Hemanth Kerr Color (U) LT. YELLOW Normal YELLOW [facility] Comment on above: Performed By: #### P REG #### [facility] [address] [place] [address] Dr. Hemanth Kerr ERUAHD A micrscopic examination will be performed if indicated. Normal [facility] Comment on above: Performed By: #### P REG #### [facility] [address] [place] [address] Dr. Hemanth Kerr Glucose Ql (U) Negative Normal NEGATIVE [facility] Comment on above: Performed By: #### P REG #### [facility] [address] [place] [address] Dr. Hemanth Kerr Hemoglobin Ql (U) Negative Normal NEGATIVE [facility] Comment on above: Performed By: #### P REG #### [facility] [address] [place] [address] Dr. Hemanth Kerr Ketones Ql (U) Negative Normal NEGATIVE [facility] Comment on above: Performed By: #### P REG #### [facility] [address] [place] [address] Dr. Hemanth Kerr LEUKOCYTES Negative Normal NEGATIVE [facility] Comment on above: Performed By: #### P REG #### [facility] [address] [place] [address] Dr. Hemanth Kerr Nitrite Ql (U) Positive Abnormal NEGATIVE [facility] Comment on above: Performed By: #### P REG #### [facility] [address] [place] [address] Dr. Hemanth Kerr pH (U) 7.5 [pH] Normal 5-9 [facility] Comment on above: Performed By: #### P REG #### [facility] [address] [place] [address] Dr. Hemanth Kerr SPEC GRAVITY 1.020 Normal 1.005-<=1.025 [facility] Comment on above: Performed By: #### P REG #### [facility] [address] [place] [address] Dr. Hemanth Kerr UA PROTEIN TRACE Normal NEGATIVE/ TRACE [facility] Comment on above: Performed By: #### P REG #### [facility] [address] [place] [address] Dr. Hemanth Kerr UR MICRO IND INDICATED Normal [facility] Comment on above: Performed By: #### P REG #### [facility] [address] [place] [address] Dr. Hemanth Kerr Urobilinogen Qn (U) 1.0 {Jose'U}/dL Normal 0.2 - 1. 0 [facility] Comment on above: Performed By: #### P REG #### [facility] [address] [place] [address] Dr. Hemanth Kerr ETHANOL (BLD ALC)on 11-29-19 ALC NOTE NOTE: 80 mg/dl is th e legal limit for a blood alcohol level Normal [facility] Comment on above: Performed By: #### C MP #### [facility] [address] [place] [address] Dr. Hemanth Kerr Ethanol [Mass/Vol] mg/dL Normal [facility] Comment on above: Performed By: #### C MP #### [facility] [address] [place] [address] Dr. Hemanth Kerr LACTATE/LACTIC ACIDon 2022 Lactate [Moles/Vol] 0.7 mmol/L Normal 0.4-2.0 [facility] Comment on above: Performed By: #### L ACT #### [facility] [address] [address] [address] Hemanth Kerr Lactate [Moles/Vol] 9.0 mmol/L Critically high 0.4-2.0 [facility] Comment on above: Performed By: #### L ACT #### [facility] [address] [address] [address] Hemanth Kerr PH VENOUS BLOODon 11-28-2022 PCO2 VENOUS 36.6 mmHg Critically low 40.0-52.0 [facility] Comment on above: Performed By: #### P HVEN #### [facility] [address] [place] [address] Dr. Hemanth Kerr pH VENOUS 7.354 Normal 7.330-7.430 [facility] Comment on above: Performed By: #### P HVEN #### [facility] [address] [address] [address] Hemanth Kerr POINT OF CARE GLUCOSEon 11-15 Glucose [Mass/Vol] 127 mg/dL Critically high 74-106 [facility] Comment on above: Performed By: #### C BC #### [facility] [address] [place] [address] Dr. Hemanth Kerr PREG HCG QUALon 11-28-2022 , QUAL Negative Normal NEGATIVE [facility] Comment on above: Performed By: #### P REG #### [facility] [address] [place] [address] Dr. Hemanth Kerr PROF 14(COMP METB)on 023 Albumin [Mass/Vol] 3.7 g/dL Normal 3.4-5.0 [facility] Comment on above: Performed By: #### L ACT #### [facility] [address] [place] [address] Dr. Hemanth Kerr Albumin/Globulin [Mass ratio] 1.3 {ratio} Normal [facility] Comment on above: Performed By: #### L ACT #### [facility] [address] [address] [address] Hemanth Kerr ALP [Catalytic activity/Vol] 72 U/L Normal 46-116 [facility] Comment on above: Performed By: #### L ACT #### [facility] [address] [address] [address] Hemanth Kerr ALT [Catalytic activity/Vol] 42 U/L Normal 14-59 [facility] Comment on above: Performed By: #### L ACT #### [facility] [address] [address] [address] Hemanth Kerr Anion gap [Moles/Vol] 16.3 mmol/L Normal [facility] Comment on above: Performed By: #### L ACT #### [facility] [address] [place] [address] Dr. Hemanth Kerr AST [Catalytic activity/Vol] 45 U/L Critically high 15-37 [facility] Comment on above: Performed By: #### L ACT #### [facility] [address] [place] [address] Dr. Hemanth Kerr Bilirubin [Mass/Vol] 0.4 mg/dL Normal 0.2-1.0 [facility] Comment on above: Performed By: #### L ACT #### [facility] [address] [place] [address] Dr. Hemanth Kerr Calcium [Mass/Vol] 8.8 mg/dL Normal 8.5-10.1 [facility] Comment on above: Performed By: #### L ACT #### [facility] [address] [address] [address] Hemanth Kerr Chloride [Moles/Vol] 107 mmol/L Normal 98-107 [facility] Comment on above: Performed By: #### L ACT #### [facility] [address] [place] [address] Dr. Hemanth Kerr CO2 [Moles/Vol] 21.8 mmol/L Normal 21.0-32.0 [facility] Comment on above: Performed By: #### L ACT #### [facility] [address] [id number] Hemanth Kerr Creatinine [Mass/Vol] 1.32 mg/dL Critically high 0.55-1.02 [facility] Comment on above: Performed By: #### L ACT #### [facility] [address] [address] [address] Hemanth Kerr EGFR-AF [place]ONG [place]ER 58 mL/min/1.73m2 Critically low >=60 [facility] Comment on above: Performed By: #### L ACT #### [facility] [address] [address] [address] Hemanth Kerr EGFR-NON AF [place] 48 mL/min/1.73m2 Critically low >=60 [facility] Comment on above: Performed By: #### L ACT #### [facility] [address] [address] [address] Hemanth Kerr Globulin (S) [Mass/Vol] 2.9 g/dL Normal [facility] Comment on above: Performed By: #### L ACT #### [facility] [address] [address] [address] Hemanth Kerr Glucose [Mass/Vol] 143 mg/dL Critically high 74-106 T [facility] Comment on above: Performed By: #### L ACT #### [facility] [address] [address] [address] Hemanth Kerr Potassium [Moles/Vol] 3.1 mmol/L Critically low 3.5-5.1 [facility] Comment on above: Performed By: #### L ACT #### [facility] [address] [address] [address] Hemanth Kerr Protein [Mass/Vol] 6.6 g/dL Normal 6.4-8.2 [facility] Comment on above: Performed By: #### L ACT #### [facility] [id number] Hemanth Kerr Sodium [Moles/Vol] 142 mmol/L Normal 136-145 [facility] Comment on above: Performed By: #### L ACT #### [facility] [address] [place] [address] Dr. Hemanth Kerr Urea nitrogen [Mass/Vol] 17.0 mg/dL Normal 7.0-18.0 [facility] Comment on above: Performed By: #### L ACT #### [facility] [address] [place] [address] Dr. Hemanth Kerr Urea nitrogen/Creatinine [Mass ratio] 12.9 mg/mg Normal [facility] Comment on above: Performed By: #### L ACT #### [facility] [address] [place] [address] Dr. Hemanth Kerr PROTIMEon 11-28-2022 INR Coag (PPP) [Relative time] 0.97 {INR} Normal [facility] Comment on above: Performed By: #### P T, PTT #### [facility] [address] [place] [address] Dr. Hemanth Kerr INR GUIDELINES SEE BELOW Normal [facility] Comment on above: Result Comment: CHAN RED INR: 2.0 - 3.0 CONDITIONS NOT LISTED BELOW 2.5 - 3.5 FOR PROSTHETIC HEART VALVE REPLACEMENT 2.5 - 3.5 RECURRENT THROMBOSIS Performed By: #### P T, PTT #### [facility] [address] [place] [address] Dr. Hemanth Kerr PT Coag (PPP) [Time] 10.3 s Normal 9.0-11.6 [facility] Comment on above: Performed By: #### P T, PTT #### [facility] [address] [place] [address] Dr. Hemanth Kerr PTTon 11-28-2022 aPTT Coag (Bld) [Time] 25.4 s Normal 22.3-36.2 [facility] Comment on above: Performed By: #### P T, PTT #### [facility] [address] [place] [address] Dr. Hemanth Kerr SALICYLATEon 11-28-2022 SALICYLATE <2.8 Normal <=19.9 [facility] Comment on above: Performed By: #### C MP #### [facility] [address] [place] [address] Dr. Hemanth Kerr TROPONIN, HIGH SENSITIVITYon 11-28-2022 HSTROP 4.2 pg/mL Normal 4.0-51.3 [facility] Comment on above: Result Comment: CUT- OFF POINTS HAVE BEEN ESTABLISHED BASED ON THE FOURTH UNIVERSAL DEFINITIONS OF MYOCARDIAL INFARCTION. THE UPPER REFERENCE LIMIT (URL) OF TROPONIN, DEFINED THE 99TH PERCENTILE OF cTnI DISTRIBUTION IN A REFERENCE POPULATION, HAS BEEN CONFIRMED THE DECISION THRESHOLD FOR KS DIAGNOSIS. Performed By: #### C MP #### [facility] [address] [place] [address] Dr. Hemanth Kerr TSHon 11-28-2022 TSH 3.476 uIU/mL Normal 0.358-3.740 [facility] Comment on above: Performed By: #### L ACT #### [facility] [address] [place] [address] Dr. Hemanth Kerr URINE MICROSCOPIC ONLYon BACTERIA LARGE Abnormal NONE SEEN [facility] Comment on above: Performed By: #### P REG #### [facility] [address] [place] [address] Dr. Hemanth Kerr Bacteria identified Cx Nom (U) INDICATED Normal [facility] Comment on above: Performed By: #### P REG #### [facility] [address] [place] [address] Dr. Hemanth Kerr CAST SEEN Abnormal NONE SEEN [facility] Comment on above: Performed By: #### P REG #### [facility] [address] [place] [address] Dr. Hemanth Kerr COARSE GRANULAR CAST RARE Normal [facility] Comment on above: Performed By: #### P REG #### [facility] [address] [place] [address] Dr. Hemanth Kerr Crystals LM Nom (Urine sed) NONE SEEN Normal NONE SEEN [facility] Comment on above: Performed By: #### P REG #### [facility] [address] [place] [address] Dr. Hemanth Kerr Epithelial cells LM Ql (Urine sed) RARE Normal NONE SEEN /RARE [facility] Comment on above: Performed By: #### P REG #### [facility] [address] [address] [address] Hemanth Kerr MUCOUS NONE SEEN Normal NONE SEEN [facility] Comment on above: Performed By: #### P REG #### [facility] [address] [address] [address] Hemanth Kerr RBC 0-2 Normal 0-2 [facility] Comment on above: Performed By: #### P REG #### [facility] [address] [place] [address] Dr. Hemanth Kerr WBC 2-5 Abnormal NONE SEEN [facility] Comment on above: Performed By: #### P REG #### [facility] [address] [address] [address] Hemanth Kerr XR CHEST 1 Von [...] by: KAMILLA MILLS Date: 2022-11-28 17:39 Normal [facility] CULTURE URINEon 10-13-2022 CULTURE URINE Isolate 1 [...] Trimethoprim/Sulfamet hoxazole >=320 R F Normal [facility] Comment on above: Performed By: #### U RCX #### [facility] [address] [address] [address] Hemanth Kerr CBC AUTO DIFFon 10-11-2022 BASO # 0.0 103/ul Normal 0.0-0.1 [facility] Comment on above: Performed By: #### C BC #### [facility] [address] [address] [address] Hemanth Kerr Basophils/100 WBC (Bld) 0.3 % Normal 0.2-2.0 [facility] Comment on above: Performed By: #### C BC #### [facility] [address] [place] [address] Dr. Hemanth Kerr EO # 0.0 103/ul Normal 0.0-0.7 [facility] Comment on above: Performed By: #### C BC #### [facility] [address] [place] [address] Dr. Hemanth Kerr Eosinophils/100 WBC (Bld) 0.4 % Critically low 0.9-7.0 [facility] Comment on above: Performed By: #### C BC #### [facility] [address] [place] [address] Dr. Hemanth Kerr Erythrocyte distribution width (RBC) [Ratio] 12.2 % Normal 11.0-15.0 [facility] Comment on above: Performed By: #### C BC #### [facility] [address] [place] [address] Dr. Hemanth Kerr Hematocrit (Bld) [Volume fraction] 38.6 % Normal 36.0-48.0 [facility] Comment on above: Performed By: #### C BC #### [facility] [address] [place] [address] Dr. Hemanth Kerr Hemoglobin (Bld) [Mass/Vol] 12.0 g/dL Normal 12.0-16.0 [facility] Comment on above: Performed By: #### C BC #### [facility] [address] [place] [address] Dr. Hemanth Kerr IG # 0.07 10e3/ul Critically high 0.00-0.03 [facility] Comment on above: Performed By: #### C BC #### [facility] [address] [address] [address] Hemanth Kerr IG % 0.7 % Critically high 0.0-0.5 [facility] Comment on above: Performed By: #### C BC #### [facility] [address] [place] [address] Dr. Hemanth Kerr LYMPH # 1.2 103/ul Normal 1.2-3.8 [facility] Comment on above: Performed By: #### C BC #### [facility] [address] [place] [address] Dr. Hemanth Kerr Lymphocytes/100 WBC (Bld) 12.1 % Critically low 20.5-60.0 [facility] Comment on above: Performed By: #### C BC #### [facility] [address] [place] [address] Dr. Hemanth Kerr MANUAL DIFF REQ NO Normal [facility] Comment on above: Performed By: #### C BC #### [facility] [address] [place] [address] Dr. Hemanth Kerr MCH (RBC) [Entitic mass] 28.0 pg Normal 26.7-34.0 [facility] Comment on above: Performed By: #### C BC #### [facility] [address] [place] [address] Dr. Hemanth Kerr MCHC (RBC) [Mass/Vol] 31.1 g/dL Normal 29.9-35.2 [facility] Comment on above: Performed By: #### C BC #### [facility] [address] [place] [address] Dr. Hemanth Kerr MCV (RBC) [Entitic vol] 90.2 fL Normal 81.0-99.0 [facility] Comment on above: Performed By: #### C BC #### [facility] [address] [place] [address] Dr. Hemanth Kerr MONO # 0.7 103/ul Normal 0.3-0.8 [facility] Comment on above: Performed By: #### C BC #### [facility] [address] [address] [address] Hemanth Kerr Monocytes/100 WBC (Bld) 6.9 % Normal 1.7-12.0 [facility] Comment on above: Performed By: #### C BC #### [facility] [address] [address] [address] Hemanth Kerr NEUT # 8.1 103/ul Critically high 1.4-6.5 [facility] Comment on above: Performed By: #### C BC #### [facility] [address] [address] [address] Hemanth Kerr Neutrophils/100 WBC (Bld) 79.6 % Critically high 43.0-75.0 [facility] Comment on above: Performed By: #### C BC #### [facility] [address] [place] [address] Dr. Hemanth Kerr Platelet mean volume (Bld) [Entitic vol] 10.8 fL Normal 9.5-13.5 [facility] Comment on above: Performed By: #### C BC #### [facility] [address] [address] [address] Hemanth Kerr PLT 452 103/ul Critically high 150-450 [facility] Comment on above: Performed By: #### C BC #### [facility] [address] [place] [address] Dr. Hemanth Kerr RBC 4.28 106/ul Normal 4.20-5.40 [facility] Comment on above: Performed By: #### C BC #### [facility] [address] [address] [address] Hemanth Kerr WBC 10.1 103/ul Normal 4.0-11.0 [facility] Comment on above: Performed By: #### C BC #### [facility] [address] [place] [address] ABD/PELVIS WO CONon [...] by: CHRISTINE SÁNCHEZ Date: 2022-10-11 14:45 Normal [facility] URINE PROFILEon 3 Bilirubin Ql (U) Negative Normal NEGATIVE [facility] Comment on above: Performed By: #### L ACT #### [facility] [address] [place] [address] Dr. Hemanth Kerr Clarity (U) CLEAR Normal CLEAR [facility] Comment on above: Performed By: #### L ACT #### [facility] [address] [address] [address] Hemanth Kerr Color (U) LT. YELLOW Normal YELLOW [facility] Comment on above: Performed By: #### L ACT #### [facility] [address] [address] [address] Hemanth Kerr ERUAHD A micrscopic examination will be performed if indicated. Normal [facility] Comment on above: Performed By: #### L ACT #### [facility] [address] [address] [address] Hemanth Kerr Glucose Ql (U) Negative Normal NEGATIVE [facility] Comment on above: Performed By: #### L ACT #### [facility] [address] [address] [address] Hemanth Kerr Hemoglobin Ql (U) LARGE Abnormal NEGATIVE [facility] Comment on above: Performed By: #### L ACT #### [facility] [address] [address] [address] Hemanth Kerr Ketones Ql (U) Negative Normal NEGATIVE [facility] Comment on above: Performed By: #### L ACT #### [facility] [address] [place] [address] Dr. Hemanth Kerr LEUKOCYTES SMALL Abnormal NEGATIVE [facility] Comment on above: Performed By: #### L ACT #### [facility] [address] [place] [address] Dr. Hemanth Kerr Nitrite Ql (U) Negative Normal NEGATIVE [facility] Comment on above: Performed By: #### L ACT #### [facility] [address] [address] [address] Hemanth Kerr pH (U) 6.5 [pH] Normal 5-9 [facility] Comment on above: Performed By: #### L ACT #### [facility] [address] [address] [address] Hemanth Kerr Protein (U) [Mass/Vol] 30 mg/dL Abnormal NEGATIVE/ TRACE [facility] Comment on above: Performed By: #### L ACT #### [facility] [address] [place] [address] Dr. Hemanth Kerr SPEC GRAVITY <=1.005 Abnormal 1.005-<=1.025 [facility] Comment on above: Performed By: #### L ACT #### [facility] [address] [address] [address] Hemanth Kerr UR MICRO IND INDICATED Normal [facility] Comment on above: Performed By: #### L ACT #### [facility] [address] [address] [address] Hemanth Kerr Urobilinogen Qn (U) 1.0 {Jose'U}/dL Normal 0.2 - 1. 0 [facility] Comment on above: Performed By: #### L ACT #### [facility] [address] [address] [address] Hemanth Kerr PREG HCG QUALon 10-11-2022 , QUAL Negative Normal NEGATIVE [facility] Comment on above: Performed By: #### P REG #### [facility] [address] [address] [address] Hemanth Kerr PROF CHEM 8 (BAS METB)on Anion gap [Moles/Vol] 9.4 mmol/L Normal [facility] Comment on above: Performed By: #### L ACT #### [facility] [address] [address] [address] Hemanth Kerr Calcium [Mass/Vol] 8.8 mg/dL Normal 8.5-10.1 [facility] Comment on above: Performed By: #### L ACT #### [facility] [address] [address] [address] Hemanth Kerr Chloride [Moles/Vol] 97 mmol/L Critically low 98-107 [facility] Comment on above: Performed By: #### L ACT #### [facility] [address] [address] [address] Hemanth Kerr CO2 [Moles/Vol] 32.4 mmol/L Critically high 21.0-32.0 [facility] Comment on above: Performed By: #### L ACT #### [facility] [address] [address] [address] Hemanth Kerr Creatinine [Mass/Vol] 0.65 mg/dL Normal 0.55-1.02 [facility] Comment on above: Performed By: #### L ACT #### [facility] [address] [address] [address] Hemanth Kerr EGFR-AF [place]ER >60 Normal >=60 [facility] Comment on above: Performed By: #### L ACT #### [facility] [address] [place] [address] Dr. Hemanth Kerr EGFR-NON AF [place] >60 Normal >=60 [facility] Comment on above: Performed By: #### L ACT #### [facility] [address] [address] [address] Hemanth Kerr Glucose [Mass/Vol] 117 mg/dL Critically high 74-106 T [facility] Comment on above: Performed By: #### L ACT #### [facility] [address] [place] [address] Dr. Hemanth Kerr Potassium [Moles/Vol] 2.8 mmol/L Critically low 3.5-5.1 [facility] Comment on above: Performed By: #### L ACT #### [facility] [address] [place] [address] Dr. Hemanth Kerr Sodium [Moles/Vol] 135 mmol/L Critically low 136-145 Th [facility] Comment on above: Performed By: #### L ACT #### [facility] [address] [place] [address] Dr. Hemanth Kerr Urea nitrogen [Mass/Vol] 8.0 mg/dL Normal 7.0-18.0 [facility] Comment on above: Performed By: #### L ACT #### [facility] [address] [place] [address] Dr. Hemanth Kerr Urea nitrogen/Creatinine [Mass ratio] 12.3 mg/mg Normal [facility] Comment on above: Performed By: #### L ACT #### [facility] [address] [place] [address] Dr. Hemanth Kerr URINE MICROSCOPIC ONLYon BACTERIA SMALL Abnormal NONE SEEN [facility] Comment on above: Performed By: #### L ACT #### [facility] [address] [place] [address] Dr. Hemanth Kerr Bacteria identified Cx Nom (U) INDICATED Normal [facility] Comment on above: Performed By: #### L ACT #### [facility] [address] [place] [address] Dr. Hemanth Kerr CAST NONE SEEN Normal NONE SEEN [facility] Comment on above: Performed By: #### L ACT #### [facility] [address] [place] [address] Dr. Hemanth Kerr Crystals LM Nom (Urine sed) NONE SEEN Normal NONE SEEN [facility] Comment on above: Performed By: #### L ACT #### [facility] [address] [place] [address] Dr. Hemanth Kerr Epithelial cells LM Ql (Urine sed) FEW Abnormal NONE SEEN /RARE [facility] Comment on above: Performed By: #### L ACT #### [facility] [address] [place] [address] Dr. Hemanth Kerr MUCOUS NONE SEEN Normal NONE SEEN [facility] Comment on above: Performed By: #### L ACT #### [facility] [address] [place] [address] Dr. Hemanth Kerr RBC 0-2 Normal 0-2 [facility] Comment on above: Performed By: #### L ACT #### [facility] [address] [place] [address] Dr. Hemanth Kerr WBC 10-20 Abnormal NONE SEEN [facility] Comment on above: Performed By: #### L ACT #### [facility] [address] [place] [address] Dr. Hemanth Kerr PREG QUANT HCGon 09-12-2022 HCG QUANT 66 mIU/mL Normal [facility] Comment on above: Performed By: #### C MP #### [facility] [address] [place] [address] Dr. Hemanth Kerr HCG RANGE SEE BELOW Normal [facility] Comment on above: Result Comment: 5-50 0.2-1 WEEK 50-500 1-2 WEEKS 100-5,000 2-3 WEEKS 500-10,000 3-4 WEEKS 1,000-50,000 4-5 WEEKS 10,000-100,000 5-6 WEEKS 15,000-200,000 6-8 WEEKS 10,000-100,000 2-3 MONTHS Performed By: #### C MP #### [facility] [address] [place] [address] Dr. Hemanth Kerr CBC AUTO DIFFon 11-30-2022 BASO # 0.0 103/ul Normal 0.0-0.1 [facility] Comment on above: Performed By: #### L ACT #### [facility] [address] [address] [address] Hemanth Kerr Basophils/100 WBC (Bld) 0.6 % Normal 0.2-2.0 [facility] Comment on above: Performed By: #### L ACT #### [facility] [address] [address] [address] Hemanth Kerr EO # 0.1 103/ul Normal 0.0-0.7 [facility] Comment on above: Performed By: #### L ACT #### [facility] [address] [place] [address] Dr. Hemanth Kerr Eosinophils/100 WBC (Bld) 1.3 % Normal 0.9-7.0 [facility] Comment on above: Performed By: #### L ACT #### [facility] [address] [place] [address] Dr. Hemanth Kerr Erythrocyte distribution width (RBC) [Ratio] 12.0 % Normal 11.0-15.0 [facility] Comment on above: Performed By: #### L ACT #### [facility] [address] [place] [address] Dr. Hemanth Kerr Hematocrit (Bld) [Volume fraction] 35.6 % Critically low 36.0-48.0 [facility] Comment on above: Performed By: #### L ACT #### [facility] [address] [place] [address] Dr. Hemanth Kerr Hemoglobin (Bld) [Mass/Vol] 12.4 g/dL Normal 12.0-16.0 [facility] Comment on above: Performed By: #### L ACT #### [facility] [address] [place] [address] Dr. Hemanth Kerr IG # 0.02 10e3/ul Normal 0.00-0.03 [facility] Comment on above: Performed By: #### L ACT #### [facility] [address] [place] [address] Dr. Hemanth Kerr IG % 0.3 % Normal 0.0-0.5 [facility] Comment on above: Performed By: #### L ACT #### [facility] [address] [place] [address] Dr. Hemanth Kerr LYMPH # 1.9 103/ul Normal 1.2-3.8 [facility] Comment on above: Performed By: #### L ACT #### [facility] [address] [place] [address] Dr. Hemanth Kerr Lymphocytes/100 WBC (Bld) 27.5 % Normal 20.5-60.0 [facility] Comment on above: Performed By: #### L ACT #### [facility] [address] [place] [address] Dr. Hemanth Kerr MANUAL DIFF REQ NO Normal [facility] Comment on above: Performed By: #### L ACT #### [facility] [address] [place] [address] Dr. Hemanth Kerr MCH (RBC) [Entitic mass] 29.6 pg Normal 26.7-34.0 [facility] Comment on above: Performed By: #### L ACT #### [facility] [address] [place] [address] Dr. Hemanth Kerr MCHC (RBC) [Mass/Vol] 34.8 g/dL Normal 29.9-35.2 [facility] Comment on above: Performed By: #### L ACT #### [facility] [address] [place] [address] Dr. Hemanth Kerr MCV (RBC) [Entitic vol] 85.0 fL Normal 81.0-99.0 [facility] Comment on above: Performed By: #### L ACT #### [facility] [address] [place] [address] Dr. Hemanth Kerr MONO # 0.4 103/ul Normal 0.3-0.8 [facility] Comment on above: Performed By: #### L ACT #### [facility] [address] [place] [address] Dr. Hemanth Kerr Monocytes/100 WBC (Bld) 6.3 % Normal 1.7-12.0 [facility] Comment on above: Performed By: #### L ACT #### [facility] [address] [place] [address] Dr. Hemanth Kerr NEUT # 4.5 103/ul Normal 1.4-6.5 [facility] Comment on above: Performed By: #### L ACT #### [facility] [address] [place] [address] Dr. Hemanth Kerr Neutrophils/100 WBC (Bld) 64.0 % Normal 43.0-75.0 [facility] Comment on above: Performed By: #### L ACT #### [facility] [address] [place] [address] Dr. Hemanth Kerr Platelet mean volume (Bld) [Entitic vol] 10.6 fL Normal 9.5-13.5 [facility] Comment on above: Performed By: #### L ACT #### [facility] [address] [place] [address] Dr. Hemanth Kerr PLT 247 103/ul Normal 150-450 [facility] Comment on above: Performed By: #### L ACT #### [facility] [address] [place] [address] Dr. Hemanth Kerr RBC 4.19 106/ul Critically low 4.20-5.40 [facility] Comment on above: Performed By: #### L ACT #### [facility] [address] [place] [address] Dr. Hemanth Kerr WBC 7.0 103/ul Normal 4.0-11.0 [facility] Comment on above: Performed By: #### L ACT #### [facility] [address] [place] [address] Dr. Hemanth Kerr Covid-19 PCR ([facility])on 07-20 SARS-CoV-2 (COVID-19) RNA ELMO+probe Ql (Unsp spec) Not detected Normal NOT DETECTED [facility] Comment on above: Result Comment: This test is not yet approved or cleared by the [place] FDA. When there are no FDA-approved or cleared tests available, and other criteria are met, FDA can make tests available under an emergency access mechanism called an Emergency Use Authorization (EUA). The EUA for this test is supported by the [place] of Health and Human Service's (HHS's) declaration [...] SARS-CoV-2. Performed By: #### C MP #### [facility] [address] [place] [address] Dr. Hemanth Kerr PREG QUANT HCGon 08-16-2022 HCG QUANT [id number] mIU/mL Normal [facility] Comment on above: Performed By: #### P REG #### [facility] [address] [place] [address] Dr. Hemanth Kerr HCG RANGE SEE BELOW Normal [facility] Comment on above: Result Comment: 5-50 0.2-1 WEEK 50-500 1-2 WEEKS 100-5,000 2-3 WEEKS 500-10,000 3-4 WEEKS 1,000-50,000 4-5 WEEKS 10,000-100,000 5-6 WEEKS 15,000-200,000 6-8 WEEKS 10,000-100,000 2-3 MONTHS Performed By: #### P REG #### [facility] [address] [place] [address] Dr. Hemanth Kerr PREG QUANT HCGon 08-14-2022 HCG QUANT 03813 mIU/mL Normal [facility] Comment on above: Performed By: #### P REG #### [facility] [address] [place] [address] Dr. Hemanth Kerr HCG RANGE SEE BELOW Normal [facility] Comment on above: Result Comment: 5-50 0.2-1 WEEK 50-500 1-2 WEEKS 100-5,000 2-3 WEEKS 500-10,000 3-4 WEEKS 1,000-50,000 4-5 WEEKS 10,000-100,000 5-6 WEEKS 15,000-200,000 6-8 WEEKS 10,000-100,000 2-3 MONTHS Performed By: #### P REG #### [facility] [address] [address] [address] Hemanth Kerr US PREG TVon 08-14-2022 [...] by: CHRISTINE SÁNCHEZ Date: 2022-08-14 16:22 Normal [facility] US PREG TVon 07-27-2022 US PREG TV [...] by: CHRISTINE SÁNCHEZ Date: 2022-07-27 17:04 Normal [facility] XR CHEST 1 Von 07-09-2022 XR CHEST [...] by: FELIX WEBB Date: 2022-07-09 12:06 Normal [facility] 12-12-2021 [facility] Telephone (JournalDocASA) NOE ERVIN ([id number]) 1995 F Date Time Provider Department 12/12/21 KING SUAZO During your visit today, we recorded the following information about you: Angelia Almazan 12/12/2021 11:16 AM Signed Pleases sign pending new cbc order. Thanks, Angelia Almazan MA Allergies As of Date: 12/12/2021 (No Known Allergies) Date Reviewed: 12/12/2021 Reviewed by: Jasmin Silverio APRN.[facility] - Fully Assessed Reason for Visit: Lab Orders [168] Primary Visit Diagnosis:Iron deficiency anemia, unspecified iron deficiency anemia type [D50.9] Order(s):CBC + DIFF [SQCBCDIF] Order #: [id number] FUTURE Prescriptions as of 12/12/2021 - gabapentin (NEURONTIN) 400 mg capsule Take by mouth. - Polysaccharide Iron Complex 180 mg iron cap Take by mouth. - aspirin 81 mg cap Take 81 mg by mouth once daily. - ONDANSETRON HCL ORAL Take 4 mg by mouth as needed. Problem List As Of Date: 12/12/2021 (None) Encounter Status:Closed by JASMIN SILVERIO on 12/12/21 Normal [facility] 11-10-2021 [facility] Telephone (JournalDocASA) NOE ERVIN ([id number]) 1995 F Date Time Provider Department 11/10/21 [...] B12 is slightly low. Options would be [id number] B12 tablets 2 mg daily or start a monthly injection. Thanks, MELANY De La O RN 11/10/2021 3:40 PM Signed Informed pt of Dr Suazo's message. Pt verbalized understanding and states [facility] told her only 2 doses of [...] by JENNYFER DE LA O on 11/10/21 [facility] CNOVSPon 11-08-2021 CNOVSP Visit (SP) Office (HEMASA) NOE ERVIN ([id number]) 1995 F Date Time Provider Department 11/08/21 [...] shortness of breath, and is seen at [place] emergency room. Labs revealed a hemoglobin of [...] changes, r (more content not included)... Normal [facility] Comp Metabolic Panelon 11-08 Albumin [Mass/Vol] 3.6 g/dL Low 3.9-4.9 [facility] Comment on above: Performed By: #### S ERFOL, IRON, B12, FERR #### [facility] [address] [place], [place] [address] ALP [Catalytic activity/Vol] 79 U/L Normal 34-123 [facility] Comment on above: Performed By: #### S ERFOL, IRON, B12, FERR #### [facility] [address] [place], [place] [address] ALT [Catalytic activity/Vol] 8 U/L Normal 7-38 [facility] Comment on above: Performed By: #### S ERFOL, IRON, B12, FERR #### [facility] [address] [place], [place] [address] Anion gap [Moles/Vol] 9 mmol/L Normal 9-18 [facility] Comment on above: Performed By: #### S ERFOL, IRON, B12, FERR #### [facility] [address] [place], [place] [address] AST [Catalytic activity/Vol] 13 U/L Normal 13-35 [facility] Comment on above: Performed By: #### S ERFOL, IRON, B12, FERR #### [address] [place] [address] Bilirubin [Mass/Vol] 0.2 mg/dL Normal 0.2-1.3 [facility] Comment on above: Performed By: #### S ERFOL, IRON, B12, FERR #### [place] [address] Calcium [Mass/Vol] 9.3 mg/dL Normal 8.5-10.2 [facility] Comment on above: Performed By: #### S ERFOL, IRON, B12, FERR #### [place] [address] Chloride [Moles/Vol] 102 mmol/L Normal 97-105 [facility] Comment on above: Performed By: #### S ERFOL, IRON, B12, FERR #### [place] [address] CO2 [Moles/Vol] 23 mmol/L Normal 22-30 [facility] Comment on above: Performed By: #### S ERFOL, IRON, B12, FERR #### [place] [address] Creatinine [Mass/Vol] 0.55 mg/dL Low 0.58-0.96 [facility] Comment on above: Performed By: #### S ERFOL, IRON, B12, FERR #### [place] [address] eGFR- Amer. >60 Normal [facility] Comment on above: Performed By: #### S ERFOL, IRON, B12, FERR #### [place] [address] eGFR-All Other Races >60 Normal [facility] Comment on above: Result Comment: eGFR (Estimated [...] #### S ERFOL, IRON, B12, FERR #### [facility] [employer] [address] [id number] Glucose [Mass/Vol] 96 mg/dL Normal 74-99 [facility] Comment on above: Result Comment: The [place] Diabetes Association (ADA) provides guidance for cutoff [...] Standards of Medical Care in Diabetes 2016, [place] [employer]. Diabetes Care. 2016.39(Suppl 1). Performed By: #### S ERFOL, IRON, B12, FERR #### [facility] [employer] [address] [place], [place] [address] Potassium [Moles/Vol] 3.3 mmol/L Low 3.7-5.1 [facility] Comment on above: Performed By: #### S ERFOL, IRON, B12, FERR #### [facility] [address] [place], [place] [address] Protein [Mass/Vol] 6.3 g/dL Normal 6.3-8.0 [facility] Comment on above: Performed By: #### S ERFOL, IRON, B12, FERR #### [address] [address] Sodium [Moles/Vol] 134 mmol/L Low 136-144 [facility] Comment on above: Performed By: #### S ERFOL, IRON, B12, FERR #### [place] [address] Urea nitrogen [Mass/Vol] 4 mg/dL Low 7-21 [facility] Comment on above: Performed By: #### S ERFOL, IRON, B12, FERR #### [place] [address] Ferritinon 11-08-2021 Ferritin [Mass/Vol] 203.0 ng/mL Normal 14.7-205.1 [facility] Comment on above: Performed By: #### S ERFOL, IRON, B12, FERR #### [address] [address] Folate, Serumon 11-08-2021 Folate [Mass/Vol] 8.5 ng/mL Normal >4.7 [facility] Comment on above: Performed By: #### S ERFOL, IRON, B12, FERR #### [address] [place], [place] [address] Iron and TIBCon 11-08-2021 Iron [Mass/Vol] 93 ug/dL Normal 41-186 [facility] Comment on above: Performed By: #### S ERFOL, IRON, B12, FERR #### [address] [address] TIBC 407 ug/dL High 232-386 [facility] Comment on above: Performed By: #### S ERFOL, IRON, B12, FERR #### [facility] [employer] [address] [place], [place] [address] Transferrin Saturatn 23 % Normal 15-57 [facility] Comment on above: Performed By: #### S ERFOL, IRON, B12, FERR #### [facility] [employer] [address] [place], [place] [address] Remote CBCDIF (for [facility] use o nly)on 11-08-2021 Abs Baso <0.03 Normal <0.11 [facility] Abs [place] 0.57 k/uL Normal <0.87 [facility] Abs Neut 4.67 k/uL Normal 1.45-7.50 [facility] Absolute nRBC <0.01 Normal <0.01 [facility] Basophils/100 WBC (Bld) 0.3 % Normal [facility] DTYPE Auto Diff Normal [facility] Eosinophils (Bld) [#/Vol] 0.05 10*3/uL Normal <0.46 [facility] Eosinophils/100 WBC (Bld) 0.8 % Normal [facility] Erythrocyte distribution width (RBC) [Ratio] 29.9 % High 11.5-15.0 [facility] Hematocrit (Bld) [Volume fraction] 32.6 % Low 36.0-46.0 [facility] Hemoglobin (Bld) [Mass/Vol] 10.1 g/dL Low 11.5-15.5 [facility] Lymphocytes (Bld) [#/Vol] 1.25 10*3/uL Normal 1.00-4.00 [facility] Lymphocytes/100 WBC (Bld) 19.1 % Normal [facility] MCH 25.1 pG Low 26.0-34.0 [facility] MCHC (RBC) [Mass/Vol] 31.0 g/dL Normal 30.5-36.0 [facility] MCV (RBC) [Entitic vol] 81.1 fL Normal 80.0-100.0 [facility] Monocytes/100 WBC (Bld) 8.7 % Normal [facility] Neutrophils/100 WBC (Bld) 71.1 % Normal [facility] NRBCs 0.0 /100 WBC Normal 0 [facility] Platelet mean volume (Bld) [Entitic vol] 10.3 fL Normal 9.0-12.7 [facility] Platelets (Bld) [#/Vol] 223 10*3/uL Normal 150-400 [facility] Comment on above: Result Comment: Resu lt checked and verified Sample checked for a clot. RBC (Bld) [#/Vol] 4.02 10*6/uL Normal 3.90-5.20 [facility] WBC (Bld) [#/Vol] 6.56 10*3/uL Normal 3.70-11.00 [facility] Reticulocyteon 11-08-2021 Abs Retic 0.140 M/uL High 0.0180-0.1000 [facility] Comment on above: Performed By: #### S ERFOL, IRON, B12, FERR #### [facility] [address] [address] Retic% 3.5 % High 0.4-2.0 [facility] Comment on above: Performed By: #### S ERFOL, IRON, B12, FERR #### [facility] [address] [place], [place] [id number] Vitamin B12on 11-08-2021 Cobalamin (Vitamin B12) [Mass/Vol] 218 pg/mL Low 232-1245 [facility] Comment on above: Performed By: #### S ERFOL, IRON, B12, FERR #### [facility] [address] [address] HCV RNA,Quant,PCRon 04-27-20 HCV RNA,Quant,PCR Specimen Description .PLASMA Special Requests [...] genotypes 1-6. Report Status FINAL 04/27/2020 Normal [facility] Comment on above: Performed By: #### H IVCMB, PHEP #### [address] [address] [employer]: Dom Fowler MD #### CP #### [facility] [address] [place] [address] [employer]: Shakeel Graham MD [facility] 04-26-2020 Erythrocyte distribution width (RBC) [Ratio] 14.7 % High 11.8-14.4 [facility] Comment on above: Performed By: #### H IVCMB, PHEP #### [address] [address] [employer]: Dom Fowler MD #### CP #### [facility] [address] [place] [address] [employer]: Shakeel Graham MD Hematocrit (Bld) [Volume fraction] 36.0 % Low 36.3-47.1 [facility] Comment on above: Performed By: #### H IVCMB, PHEP #### [address] [address] [employer]: Dom Fowler MD #### CP #### [facility] [address] [place] [address] [employer]: Shakeel Graham MD Hemoglobin (Bld) [Mass/Vol] 10.9 g/dL Low 11.9-15.1 [facility] Comment on above: Performed By: #### H IVCMB, PHEP #### [address] [id number] [employer]: Dom Fowler MD #### CP #### [facility] [address] [place] [address] [employer]: Shakeel Graham MD MCH (RBC) [Entitic mass] 26.2 pg Normal 25.2-33.5 [facility] Comment on above: Performed By: #### H IVCMB, PHEP #### [address] [id number] [employer]: Dom Fowler MD #### CP #### [facility] [address] [place] [address] [employer]: Shakeel Graham MD MCHC (RBC) [Mass/Vol] 30.3 g/dL Normal 28.4-34.8 [facility] Comment on above: Performed By: #### H IVCMB, PHEP #### [address] [id number] [employer]: Dom Fowler MD #### CP #### [facility] [address] [place] [id number] [employer]: Shakeel Graham MD MCV (RBC) [Entitic vol] 86.5 fL Normal 82.6-102.9 [facility] Comment on above: Performed By: #### H IVCMB, PHEP #### [address] [address] [employer]: Dom Fowler MD #### CP #### [facility] [address] [place] [id number] [employer]: Shakeel Graham MD NRBC Automated 0.0 per 100 WBC Normal 0.0 [facility] Comment on above: Performed By: #### H IVCMB, PHEP #### [address] [id number] [employer]: Dom Fowler MD #### CP #### [facility] [address] [place] [address] [employer]: Shakeel Graham MD Platelet mean volume (Bld) [Entitic vol] 10.8 fL Normal 8.1-13.5 [facility] Comment on above: Performed By: #### H IVCMB, PHEP #### [address] [place], [place] [id number] [employer]: Dom Fowler MD #### CP #### [facility] [address] [place], [place] [id number] [employer]: Shakeel Graham MD Platelets (Bld) [#/Vol] 328 10*3/uL Normal 138-453 [facility] Comment on above: Performed By: #### H IVCMB, PHEP #### [address] [id number] [employer]: Dom Fowler MD #### CP #### [facility] [address] [place] [address] [employer]: Shakeel Graham MD RBC (Bld) [#/Vol] 4.16 10*6/uL Normal 3.95-5.11 [facility] Comment on above: Performed By: #### H IVCMB, PHEP #### [address] [id number] [employer]: Dom Fowler MD #### CP #### [facility] [address] [place] [address] [employer]: Shakeel Graham MD WBC (Bld) [#/Vol] 5.7 10*3/uL Normal 3.5-11.3 [facility] Comment on above: Performed By: #### H IVCMB, PHEP #### [address] [id number] [employer]: Dom Fowler MD #### CP #### [facility] [address] [place] [address] [employer]: Shakeel Graham MD Erythrocyte distribution width (RBC) [Ratio] 14.7 % High 11.8 - 14.4 % [place], [place] Hematocrit (Bld) [Volume fraction] 36.0 % Low 36.3 - 47.1 % [place] Hemoglobin (Bld) [Mass/Vol] 10.9 g/dL Low 11.9 - 15.1 g/dL [place] Interpretation and review of laboratory results Abnormal [place] MCH (RBC) [Entitic mass] 26.2 pg 25.2 - 33.5 pg [place] MCHC (RBC) [Mass/Vol] 30.3 g/dL 28.4 - 34.8 g/dL [place] MCV (RBC) [Entitic vol] 86.5 fL 82.6 - 102.9 fL [place] Platelet mean volume (Bld) [Entitic vol] 10.8 fL 8.1 - 13.5 fL [place], [place] Platelets (Bld) [#/Vol] 328 10*3/uL [place] RBC (Bld) [#/Vol] 4.16 10*6/uL 3.95 - 5.1 1 m/uL [place] WBC (Bld) [#/Vol] 0.0 10*3/uL 0.0 per 100 WBC [place] WBC (Bld) [#/Vol] 5.7 10*3/uL [place] Comp Metabolic Profon 2019 Bilirubin Ql (U) <0.10 Low 0.3-1.2 [facility] Comment on above: Performed By: #### H IVCMB, PHEP #### [facility] [address] [place] [address] [employer]: Dom Fowler MD #### CP #### [facility] [address] [place] [address] [employer]: Shakeel Graham MD (cont.) Normal [facility] Comment on above: Result Comment: Aver age GFR for 20-29 years old: 116 mL/min/1.73sq m Chronic Kidney Disease: <60 mL/min/1.73sq m Kidney failure: <15 mL/min/1.73sq m eGFR calculated using average adult body mass. Additional eGFR calculator available at: http://www.[employer]/multiple_crcl_2011.htm Performed By: #### H IVCMB, PHEP #### [facility] [address] [place] [address] [employer]: Dom Fowler MD #### CP #### [facility] [address] [place] [address] [employer]: Shakeel Graham MD Albumin [Mass/Vol] 3.4 g/dL Low 3.5-5.2 [facility] Comment on above: Performed By: #### H IVCMB, PHEP #### [address] [address] [employer]: Dom Fowler MD #### CP #### [facility] [address] [place] [address] [place] [address] [employer]: Shakeel Graham MD Albumin/Globulin [Mass ratio] 1.5 {ratio} Normal 1.0-2.5 [facility] Comment on above: Performed By: #### H IVCMB, PHEP #### [address] [address] [employer]: Dom Fowler MD #### CP #### [facility] [address] [place] [address] [employer]: Shakeel Graham MD Alkaline Phos 40 U/L Normal 35-104 [facility] Comment on above: Performed By: #### H IVCMB, PHEP #### [address] [address] [employer]: Dom Fowler MD #### CP #### [facility] [address] [place] [id number] [employer]: Shakeel Graham MD ALT [Catalytic activity/Vol] 12 U/L Normal 5-33 [facility] Comment on above: Performed By: #### H IVCMB, PHEP #### [facility] [address] [place] [address] [employer]: Dom Fowler MD #### CP #### [facility] [address] [place] [id number] [employer]: Shakeel Graham MD Anion gap [Moles/Vol] 9 mmol/L Normal 9-17 [facility] Comment on above: Performed By: #### H IVCMB, PHEP #### [address] [address] [employer]: Dom Fowler MD #### CP #### [facility] [address] [place] [id number] [employer]: Shakeel Graham MD AST [Catalytic activity/Vol] 12 U/L Normal <32 [facility] Comment on above: Performed By: #### H IVCMB, PHEP #### [address] [address] [employer]: Dom Fowler MD #### CP #### [facility] [address] [place] [id number] [employer]: Shakeel Graham MD BUN/CRE Ratio 26 High 9-20 [facility] Comment on above: Performed By: #### H IVCMB, PHEP #### [address] [address] [employer]: Dom Fowler MD #### CP #### [facility] [address] [place] [id number] [employer]: Shakeel Graham MD Calcium [Mass/Vol] 9.3 mg/dL Normal 8.6-10.4 [facility] Comment on above: Performed By: #### H IVCMB, PHEP #### [address] [address] [employer]: Dom Fowler MD #### CP #### [facility] [address] [place] [address] Dr. [place], [place] [id number] [employer]: Shakeel Graham MD Chloride [Moles/Vol] 109 mmol/L High 98-107 [facility] Comment on above: Performed By: #### H IVCMB, PHEP #### [address] [address] [employer]: Dom Fowler MD #### CP #### [address] [place] [id number] [employer]: Shakeel Graham MD CO2 [Moles/Vol] 26 mmol/L Normal 20-31 [facility] Comment on above: Performed By: #### H IVCMB, PHEP #### [address] [address] [employer]: Dom Fowler MD #### CP #### [address] [place] [id number] [employer]: Shakeel Graham MD Creatinine [Mass/Vol] 0.57 mg/dL Normal 0.50-0.90 [facility] Comment on above: Performed By: #### H IVCMB, PHEP #### [address] [address] [employer]: Dom Fowler MD #### CP #### [facility] [address] [place] [address] [address] [place], [place] [address] [employer]: Shakeel Graham MD GFR, Amer >60 Normal >60 [facility] Comment on above: Performed By: #### H IVCMB, PHEP #### [address] [address] [employer]: Dom Fowler MD #### CP #### [facility] [address] [place], [place] [id number] [employer]: Shakeel Graham MD GFR,non Amer >60 Normal >60 [facility] Comment on above: Performed By: #### H IVCMB, PHEP #### [address] [address] [employer]: Dom Fowler MD #### CP #### [address] [place], [place] [id number] [employer]: Shakeel Graham MD Glucose [Mass/Vol] 92 mg/dL Normal 70-99 [facility] Comment on above: Performed By: #### H IVCMB, PHEP #### [address] [address] [employer]: Dom Fowler MD #### CP #### [address] [place], [place] [id number] [employer]: Shakeel Graham MD Potassium [Moles/Vol] 3.8 mmol/L Normal 3.7-5.3 [facility] Comment on above: Performed By: #### H IVCMB, PHEP #### [address] [address] [employer]: Dom Fowler MD #### CP #### [facility] [address] [place] [address] [address]. [place], [place] [id number] [employer]: Shakeel Graham MD Protein [Mass/Vol] 5.7 g/dL Low 6.4-8.3 [facility] Comment on above: Performed By: #### H IVCMB, PHEP #### [address] [address] [employer]: Dom Fowler MD #### CP #### [address] [place] [address] [employer]: Shakeel Graham MD Sodium [Moles/Vol] 144 mmol/L Normal 135-144 [facility] Comment on above: Performed By: #### H IVCMB, PHEP #### [address] [address] [employer]: Dom Fowler MD #### CP #### [address] [place] [address] [employer]: Shakeel Graham MD Staging: Normal [facility] Comment on above: Result Comment: Stag e 1: Some kidney damage normal GFR Stage 2: Mild kidney damage GFR 60-89 Stage 3: Moderate kidney damage GFR 30-59 Stage 4: Severe kidney damage GFR 15-29 Stage 5: Severe kidney damage GFR <15 ESRD - chronic treatment by dialysis or transplant Performed By: #### H IVCMB, PHEP #### [address] [address] [employer]: Dom Fowler MD #### CP #### [address] [place] [address] [employer]: Shakeel Graham MD Urea nitrogen [Mass/Vol] 15 mg/dL Normal 6-20 [facility] Comment on above: Performed By: #### H IVCMB, PHEP #### [address] [address] [employer]: Dom Fowler MD #### CP #### [address] [place] [address] [employer]: Shakeel Graham MD [facility] Albumin [Mass/Vol] 3.4 g/dL Low 3.5 - 5.2 g/dL [place], [place] Albumin/Globulin [Mass ratio] 1.5 {ratio} [place] ALP [Catalytic activity/Vol] 40 U/L 35 - 104 U/L [place] ALT [Catalytic activity/Vol] 12 U/L 5 - 33 U/L [place] Anion gap [Moles/Vol] 9 mmol/L 9 - 17 mmol/L [place] AST [Catalytic activity/Vol] 12 U/L <32 [place] Bilirubin Ql (U) <0.10 Low 0.3 - 1.2 mg/dL [place] Bun/Cre Ratio 26 High [place], [place] Calcium [Mass/Vol] 9.3 mg/dL 8.6 - 10. 4 mg/dL [place] Chloride [Moles/Vol] 109 mmol/L High 98 - 107 mmol/L [place] CO2 [Moles/Vol] 26 mmol/L 20 - 31 mmol/L [place] Creatinine [Mass/Vol] 0.57 mg/dL 0.5 - 0.9 mg/dL [place] GFR >60 >60 mL/min [place] GFR Non- >60 >60 mL/min [place] Glucose [Mass/Vol] 92 mg/dL 70 - 99 mg/dL [place] Interpretation and review of laboratory results Abnormal [place] Potassium [Moles/Vol] 3.8 mmol/L 3.7 - 5.3 mmol/L [place] Protein [Mass/Vol] 5.7 g/dL Low 6.4 - 8.3 g/dL [place], [place] Sodium [Moles/Vol] 144 mmol/L 135 - 144 mmol/L [place] Urea nitrogen [Mass/Vol] 15 mg/dL 6 - 20 mg/dL [place] HCG Qualitative, Serumon hCG Qual Negative NEGATIVE [place] Comment on above: Specimens with hCG l evels near the threshold of the test (25 mIU/mL) may give a negative or indeterminate result. In such cases, another test should be performed with a new specimen in 48-72 hours. If early is suspected clinically in this setting, correlation with quantitative serum b-hCG level is suggested. [facility] has confirmed the use of plasma for this test. This has not been cleared or approved by the U.S. Food and Drug Administration. The FDA has determined that such clearance is not necessary. HCG Screen, Bloodon 04-26-20 20 HCG Qn Negative Normal NEG [facility] Comment on above: Result Comment: Spec imens with hCG levels near the threshold of the test (25 mIU/mL) may give a negative or indeterminate result. In such cases, another test should be performed with a new specimen in 48-72 hours. If early is suspected clinically in this setting, correlation with quantitative serum b-hCG level is suggested. [facility] has confirmed the use of plasma for this test. This has not been cleared or approved by the U.S. Food and Drug Administration. The FDA has determined that such clearance is not necessary. Performed By: #### H IVCMB, PHEP #### [facility] [address] [place], [place] [id number] [employer]: Dom Fowler MD #### CP #### [address] [place] [address] [employer]: Shakeel Graham MD HIV Ag/Abon 04-26-2020 HIV Ag/Ab NONREACTIVE Normal NR [facility] Comment on above: Result Comment: No l aboratory evidence of HIV infection. If acute HIV infection is suspected, consider testing for HIV-1 RNA. Performed By: #### H IVCMB, PHEP #### [facility] [address] [place] [address] [employer]: Dom Fowler MD #### CP #### [facility] [address] [place] [address] [employer]: Shakeel Graham MD HIV Screenon 04-26-2020 HIV Ag/Ab NONREACTIVE NONREACTIVE [place] Comment on above: No laboratory eviden ce of HIV infection. If acute HIV infection is suspected, consider testing for HIV-1 RNA. Hepatitis Acute [facility] 04-26 Hep A Ab,IgM NONREACTIVE Normal NR [facility] Comment on above: Performed By: #### H IVCMB, PHEP #### [facility] [address] [place] [address] [employer]: Dom Fowler MD #### CP #### [facility] [address] [place] [address] [place] [address] [employer]: Shakeel Graham MD Hep B Core Ab,IgM NONREACTIVE Normal [facility] Comment on above: Performed By: #### H IVCMB, PHEP #### [address] [address] [employer]: Dom Fowler MD #### CP #### [address] [place], [place] [id number] [employer]: Shakeel Graham MD Hep B Surf Ag NONREACTIVE Normal [facility] Comment on above: Performed By: #### H IVCMB, PHEP #### [facility] [address] [place] [address] [employer]: Dom Fowler MD #### CP #### [address] [place] [address] [employer]: Shakeel Graham MD Hep C Ab REACTIVE Abnormal NR [facility] Comment on above: Result Comment: The [...] By: #### H IVCMB, PHEP #### [facility] [address] [place] [address] [employer]: Dom Fowler MD #### CP #### [facility] [address] [place] [address] [employer]: Shakeel Graham MD Hepatitis Panel, Acuteon HAV IgM IA Qn (S) NONREACTIVE NONREACTIVE [place] Hep B Core Ab, IgM NONREACTIVE NONREACTIVE [place] Hepatitis B Surface Ag NONREACTIVE NONREACTIVE [place] Hepatitis C Ab REACTIVE Abnormal NONREACTIVE [place] Comment on above: The hepatitis C [...] Interpretation and review of laboratory results Abnormal [place] Metabolic Panelon 04-26-2020 GFR/1.73 sq M predicted among non-blacks MDRD (S/P/Bld) [Vol rate/Area] [place] Comment on above: Stage 1: Some [...] body mass. Additional eGFR calculator available at: http://www.ERPLY.Suniva/multiple_crcl_2012.htm Microscopic Urinalysison Amorphous, UA NOT REPORTED None [place] Bacteria, UA NOT REPORTED None [place], [place] Casts UA NOT REPORTED /LPF [place] Crystals, UA 5 TO 10 Abnormal None /HPF [place] Crystals, UA CALCIUM OXALATE Abnormal None /HPF [place] Epithelial Cells UA 0 TO 2 [place] Interpretation and review of laboratory results Abnormal [facility] Mucus, UA TRACE Abnormal None [place] Other Observations UA NOT REPORTED NOT REQ. [place] RBC (U) [#/Vol] None [facility] Renal Epithelial, UA NOT REPORTED 0 /HPF [facility], [place] Trichomonas, UA NOT REPORTED None [facility] [place] WBC, UA 0 TO 2 [facility] Yeast, UA NOT REPORTED None [facility] UA w/Reflex Cultureon 2019 Acetoacetic Acid,Ur Negative Normal NEG [facility] Comment on above: Performed By: #### H IVCMB, PHEP #### [address] [address] [employer]: Dom Fowler MD #### CP #### [address] [place] [address] [employer]: Shakeel Graham MD Bilirubin, SemiQt,Ur Negative Normal NEG [facility] Comment on above: Performed By: #### H IVCMB, PHEP #### [address] [address] [employer]: Dom Fowler MD #### CP #### [address] [place] [address] [employer]: Shakeel Graham MD Color (U) YELLOW Normal [facility] Comment on above: Performed By: #### H IVCMB, PHEP #### [address] [address] [employer]: Dom Fowler MD #### CP #### [address] [place] [address] [employer]: Shakeel Graham MD Glucose Ql (U) Negative Normal NEG [facility] Comment on above: Performed By: #### H IVCMB, PHEP #### [address] [address] [employer]: Dom Fowler MD #### CP #### [facility] [address] [place] [address] [address] [place], [place] [phone] [employer]: Shakeel Graham MD Hemoglobin, Ur Negative Normal NEG [facility] Comment on above: Performed By: #### H IVCMB, PHEP #### [address] [address] [employer]: Dom Fowler MD #### CP #### [address] [place], [place] [id number] [employer]: Shakeel Graham MD Leukocyte esterase Test strip Ql (U) Negative Normal NEG [facility] Comment on above: Performed By: #### H IVCMB, PHEP #### [address] [address] [employer]: Dom Fowler MD #### CP #### [address] [place], [place] [phone] [employer]: Shakeel Graham MD Nitrite,Ur Negative Normal NEG [facility] Comment on above: Performed By: #### H IVCMB, PHEP #### [address] [address] [employer]: Dom Fowler MD #### CP #### [address] [place], [place] [id number] [employer]: Shakeel Graham MD pH (U) 6.5 [pH] Normal 5.0-9.0 [facility] Comment on above: Performed By: #### H IVCMB, PHEP #### [address] [address] [employer]: Dom Fowler MD #### CP #### [facility] [address] [place] [address] [place] [address] [employer]: Shakeel Graham MD Protein Ql (U) Negative Normal NEG [facility] Comment on above: Performed By: #### H IVCMB, PHEP #### [facility] [address] [place] [address] [employer]: Dom Fowler MD #### CP #### [address] [place] [address] [employer]: Shakeel Graham MD Specific gravity (U) [Rel density] 1.025 High 1.010-1.020 [facility] Comment on above: Performed By: #### H IVCMB, PHEP #### [address] [address] [employer]: Dom Fowler MD #### CP #### [address] [place], [place] [address] [employer]: Shakeel Graham MD Turbidity CLEAR Normal CLEAR [facility] Comment on above: Performed By: #### H IVCMB, PHEP #### [address] [address] [employer]: Dom Fowler MD #### CP #### [address] [place] [address] [employer]: Shakeel Graham MD Urobilinogen,Ur Normal Normal NORM [facility] Comment on above: Performed By: #### H IVCMB, PHEP #### [address] [address] [employer]: Dom Fowler MD #### CP #### [address] [place] [address] [employer]: Shakeel Graham MD Comment NOT REPORTED Normal [facility] Comment on above: Performed By: #### H IVCMB, PHEP #### [place] [address] [place] [address] [employer]: Dom Fowler MD #### CP #### [facility] [address] [place] [address] [place] [address] [employer]: Shakeel Graham MD Urinalysis Reflex to Culture on 04-26-2020 Bilirubin Urine Negative NEGATIVE [facility] [place], [place] Color, UA YELLOW YELLOW [facility], [place] Glucose, Ur Negative NEGATIVE [facility] Interpretation and review of laboratory results Abnormal [place] Ketones Ql (U) Negative NEGATIVE [facility], [place] Leukocyte esterase Test strip Ql (U) Negative NEGATIVE [facility] Nitrite, Urine Negative NEGATIVE [facility], [place] pH, UA 6.5 [place] Protein (U) [Mass/Vol] Negative NEGATIVE [facility], [place] Specific [place], UA 1.025 High [facility], [place] Turbidity UA CLEAR CLEAR [place] Urinalysis Comments NOT REPORTED [facility] Urine Hgb Negative NEGATIVE [facility] Urobilinogen, Urine Normal Normal [place] Urinalysis,Microon 0 ----- Normal [facility] Comment on above: Performed By: #### H IVCMB, PHEP #### [address] [address] [employer]: Dom Fowler MD #### CP #### [facility] [address] [place] [address] [place] [address] [employer]: Shakeel Graham MD Crystals LM Nom (Urine sed) CALCIUM OXALATE Abnormal NONE [facility] Comment on above: Result Comment: 5 TO 10 Performed By: #### H IVCMB, PHEP #### [place] [address] [place] [address] [employer]: Dom Fowler MD #### CP #### [address] [place] [address] [employer]: Shakeel Graham MD Epithelial cells LM.HPF (Urine sed) [#/Area] 0 TO 2 Normal 0-25 [facility] Comment on above: Performed By: #### H IVCMB, PHEP #### [address] [address] [employer]: Dom Fowler MD #### CP #### [address] [place] [id number] [employer]: Shakeel Graham MD Mucus Strands TRACE Abnormal NONE [facility] Comment on above: Performed By: #### H IVCMB, PHEP #### [address] [address] [employer]: Dom Fowler MD #### CP #### [address] [place] [address] [employer]: Shakeel Graham MD RBC (U) [#/Vol] None Normal 0-2 [facility] Comment on above: Performed By: #### H IVCMB, PHEP #### [address] [address] [employer]: Dom Fowler MD #### CP #### [address] [place] [phone] ( [employer]: Shakeel Graham MD WBC (U) [#/Vol] 0 TO 2 Normal 0-5 [facility] Comment on above: Performed By: #### H IVCMB, PHEP #### [address] [address] [employer]: Dom Fowler MD #### CP #### [address] [place], [place] 2947383 [employer]: hSakeel Graham MD Amorphous sediment LM Ql (Urine sed) NOT REPORTED Normal NONE [facility] Comment on above: Performed By: #### H IVCMB, PHEP #### [facility] [address] [place] [address] [employer]: Dom Fowler MD #### CP #### [facility] [address] [place] [address] [place] [address] [employer]: Shakeel Graham MD Bacteria LM.HPF (Urine sed) [#/Area] NOT REPORTED Normal NONE [facility] Comment on above: Performed By: #### H IVCMB, PHEP #### [address] [address] [employer]: Dom Fowler MD #### CP #### [address] [place] [address] [employer]: Shakeel Graham MD Casts LM.LPF (Urine sed) [#/Area] NOT REPORTED Normal [facility] Comment on above: Performed By: #### H IVCMB, PHEP #### [address] [address] [employer]: Dom Fowler MD #### CP #### [address] [place] [address] [employer]: Shakeel Graham MD Epithelial, Renal NOT REPORTED Normal 0 [facility] Comment on above: Performed By: #### H IVCMB, PHEP #### [address] [address] [employer]: Dom Fowler MD #### CP #### [address] [place] [address] [employer]: Shakeel Graham MD Other Observations NOT REPORTED Normal NREQ [facility] Comment on above: Performed By: #### H IVCMB, PHEP #### [address] [address] [employer]: Dom Fowler MD #### CP #### [facility] [address] [place] [id number] [employer]: Shakeel Graham MD Trichomonas NOT REPORTED Normal NONE [facility] Comment on above: Performed By: #### H IVCMB, PHEP #### [facility] [address] [place] [address] [employer]: Dom Fowler MD #### CP #### [facility] [address] [place] [id number] [employer]: Shakeel Graham MD Yeast LM Ql (Urine sed) NOT REPORTED Normal NONE [facility] Comment on above: Performed By: #### H IVCMB, PHEP #### [place] [address] [place] [address] [employer]: Dom Fowler MD #### CP #### [facility] [address] [place] [address] [address] [place] [id number] [employer]: Shakeel Graham MD ED Clinical Summaryon 2019 ED Clinical Summary [address] [address] ED Clinical Summary Person Information Name: Kathryn [facility] Age: 25 Years : 1995 Sex: Female PCP: Marital Status: Single Phone: Race: White Ethnicity: Not or Language: [place] Visit Reason: Drug withdrawal; Drug withdrawal Acuity: 3 Enc Type: Emergency Med Service: Emergency Medicine Arrival: 03/16/2020 20:10:45 Discharge: 03/17/2020 02:12:00 LOS: 000 06:02 Checkin: 03/16/2020 20:10:45 Checkout: 03/17/2020 02:12:00 Dispo Type: Home or Self Care Address: [address] [place] [address] Provider Notes: Diagnosis: 1:Affective disorder; 2:Drug usage [...] range between ( 27.2 and 40.8 ) [place] Auto: 11.4 % -- Normal range between [...] range between ( 36.0 and 46.0 ) [place] Absolute: 1.5 x10 MCH: 27.4 pg -- [...] 03/16/2020 20:20:41 Follow up: With: Address: When: [facility] [place], [place] Within 1 to 2 days Discharge Orders: Discharge Patient 03/17/20 1:45:00 EDT, Discharge to Home, Self Patient Education Information: Understanding Methamphetamine Abuse and Addiction; Treating Affective (Mood) Disorders [facility] Poison Help line: . [facility] Mental Health Hotline: [place] Tobacco Quit Line: [place], [place]) [address]: [phone] [place], [place]) [address]: [phone] [facility] [address] [place], [place]: [phone] Normal [facility] hCG Quantitativeon 0 Beta hCG Qnt 1.7 mIU/mL Normal 0.0-4.9 [facility] Comment on above: Result Comment: 0.0 - 4.9 Negative for 5.0 - 25.0 Indeterminant for : Suggest repeat in 72 hours. >25.0 Positive for Performed By: #### H CG ####[place] [address] .UA Microscp Aon 03-16-2020 UA Hyline Cast Qual >20 Abnormal Negative [facility] Comment on above: Performed By: #### C [id number] ####[place] [id number] UA Mucus Present Abnormal Absent [facility] Comment on above: Performed By: #### C [id number] ####[place] [id number] UA RBC Quant 12 /HPF High 0-5 [facility] Comment on above: Performed By: #### C [id number] ####[address] [address] UA Squepi Cells Quant 6 /HPF Normal 0-29 [facility] Comment on above: Performed By: #### C [id number] ####[address] [address] UA WBC Quant 7 /HPF High 0-5 [facility] Comment on above: Performed By: #### C [id number] ####[address] [address] .eGFRon 03-16-2020 eGFR AA 52 mL/min/1.73m? Low >=60 [facility] Comment on above: Result Comment: Resu lt = 0-14.9 mL/min/1.73 m2 Kidney failure or Dialysis Result = 15-29 mL/min/1.73 m2 Severe decrease in GFR Result = 30-59 mL/min/1.73 m2 Moderate decrease in GFR Result >= 60 mL/min/1.73 m2 Normal or increased GFR Performed By: #### E GFR #### [address] [address] eGFR Non-AA 43 mL/min/1.73m? Low >=60 [facility] Comment on above: Result [...] dosing. Performed By: #### E GFR #### [address] [address] CBC w/ Diffon 03-16-2020 Erythrocyte distribution width (RBC) [Ratio] 15.9 % High 11.6-14.8 [facility] Comment on above: Performed By: #### C BC #### [address] [address] Hematocrit (Bld) [Volume fraction] 37.5 % Normal 36.0-46.0 [facility] Comment on above: Performed By: #### C BC #### [address] [address] Hemoglobin (Bld) [Mass/Vol] 12.5 g/dL Normal 12.0-16.0 [facility] Comment on above: Performed By: #### C BC #### [address] [address] MCH (RBC) [Entitic mass] 27.4 pg Normal 27.0-35.0 [facility] Comment on above: Performed By: #### C BC #### [address] [address] MCHC (RBC) [Mass/Vol] 33.2 % Normal 31.0-37.0 [facility] Comment on above: Performed By: #### C BC #### [address] [address] MCV (RBC) [Entitic vol] 82.4 fL Normal 80.0-100.0 [facility] Comment on above: Performed By: #### C BC #### [address] [address] Platelet mean volume (Bld) [Entitic vol] 9.4 fL Normal 6.7-10.6 [facility] Comment on above: Performed By: #### C BC #### [address] [address] Platelets (Bld) [#/Vol] 307 x10*3/mcL Normal 150-350 [facility] Comment on above: Performed By: #### C BC #### [address] [address] RBC (Bld) [#/Vol] 4.55 x10*6/mcL Normal 3.80-5.20 [facility] Comment on above: Performed By: #### C BC #### [address] [address] WBC (Bld) [#/Vol] 12.9 x10*3/mcL High 4.5-11.0 [facility] Comment on above: Performed By: #### C BC #### [address] [address] CMPon 03-16-2020 Albumin [Mass/Vol] 5.2 g/dL High 3.2-4.9 [facility] Comment on above: Result Comment: [facility] Laboratory updated the methodology used for albumin testing on 04/24/18. Albumin measurement was performed using a bromcresol purple dye-binding assay. Performed By: #### C OMP #### [address] [address] Albumin/Globulin [Mass ratio] 1.5 {ratio} Normal 1.1-2.2 [facility] Comment on above: Performed By: #### C OMP #### [address] [address] Alk Phos 47 IU/L Normal 32-91 [facility] Comment on above: Performed By: #### C OMP #### [address] [address] ALT [Catalytic activity/Vol] 19 U/L Normal 14-54 [facility] Comment on above: Performed By: #### C OMP #### [address] [place] [address] Anion gap [Moles/Vol] 22 mmol/L High 7-17 [facility] Comment on above: Performed By: #### C OMP #### [address] [address] AST [Catalytic activity/Vol] 31 U/L Normal 15-41 [facility] Comment on above: Performed By: #### C OMP #### [address] [address] Bili Total 1.4 mg/dL High 0.3-1.2 [facility] Comment on above: Performed By: #### C OMP #### [address] [address] Calcium [Mass/Vol] 10.2 mg/dL Normal 8.5-10.3 [facility] Comment on above: Performed By: #### C OMP #### [address] [address] Chloride [Moles/Vol] 100 mmol/L Normal 98-110 [facility] Comment on above: Performed By: #### C OMP #### [address] [address] CO2 [Moles/Vol] 19 mmol/L Low 22-32 [facility] Comment on above: Performed By: #### C OMP #### [address] [address] Creatinine [Mass/Vol] 1.47 mg/dL High 0.44-1.03 [facility] Comment on above: Performed By: #### C OMP #### [address] [address] Glucose [Mass/Vol] 85 mg/dL Normal 70-99 [facility] Comment on above: Performed By: #### C OMP #### [address] [address] Potassium [Moles/Vol] 3.7 mmol/L Normal 3.4-4.8 [facility] Comment on above: Performed By: #### C OMP #### [address] [address] Protein [Mass/Vol] 8.7 g/dL High 6.5-8.1 [facility] Comment on above: Performed By: #### C OMP #### [address] [address] Sodium [Moles/Vol] 137 mmol/L Normal 133-142 [facility] Comment on above: Performed By: #### C OMP #### [address] [address] Urea nitrogen [Mass/Vol] 25 mg/dL Normal 8-26 [facility] Comment on above: Performed By: #### C OMP #### [address] [address] Urea nitrogen/Creatinine [Mass ratio] 17.0 mg/mg Normal 10.0-20.0 [facility] Comment on above: Performed By: #### C OMP #### [address] [address] CPKon 03-16-2020 Creatine Phosphokinase 439 IU/L High 38-234 [facility] Comment on above: Performed By: #### C P #### [address] [address] Diff Autoon 03-16-2020 Baso Absolute 0.0 x10*3/mcL Normal 0.0-0.2 [facility] Comment on above: Performed By: #### . Automated Diff #### [address] [address] Basophils/100 WBC (Bld) 0.4 % Normal 0.0-1.5 [facility] Comment on above: Performed By: #### . Automated Diff #### [address] [address] Eos Absolute 0.0 x10*3/mcL Normal 0.0-0.4 [facility] Comment on above: Performed By: #### . Automated Diff #### [address] [address] Eosinophils/100 WBC (Bld) 0.1 % Normal 0.0-5.4 [facility] Comment on above: Performed By: #### . Automated Diff #### [address] [address] Lymphocytes (Bld) [#/Vol] 1.4 x10*3/mcL Normal 1.0-4.8 [facility] Comment on above: Performed By: #### . Automated Diff #### [address] [address] Lymphocytes/100 WBC (Bld) 10.8 % Low 27.2-40.8 [facility] Comment on above: Performed By: #### . Automated Diff #### [address] [address] [place] Absolute 1.5 x10*3/mcL High 0.1-1.1 [facility] Comment on above: Performed By: #### . Automated Diff #### [facility] [address] [place] [address] Monocytes/100 WBC (Bld) 11.4 % Normal 3.7-11.9 [facility] Comment on above: Performed By: #### . Automated Diff #### [facility] [address] [place] [address] Neutro Absolute 10.0 x10*3/mcL High 1.8-7.7 [facility] Comment on above: Performed By: #### . Automated Diff #### [facility] [address] [place] [address] Neutro Auto 77.3 % High 47.2-70.8 [facility] Comment on above: Performed By: #### . Automated Diff #### [address] [address] ED Note-Nursingon 03-16-2020 ED Note-Nursing Lab called about add ons Electronically signed by Barbara Holman 03/16/20 20:49 EDT Normal [facility] ED Note-Physicianon 03-16-20 ED Note-Physician Chief [...] that she has residential set up at [facility] in [place], [place] but she has to detox first. [...] as well. She was seen by Alonso, home health care social worker who has arranged for her to go to [facility] tomorrow as patient is interested in treatment. Verbally contracted to safety and filled out a safety plan. Alonso with social work spoke with leasing director, Jelena who will arrange for further follow-up when they arrive tomorrow. Family is agreeable with plan. Patient has good support. They will return if any changes of symptoms or concern. Silvia Castañeda scribing for and in the presence of Dr. Cornell. Scribe Attestation: The information in this document, created by the director of medical review for me, accurately reflects the services I [...] High Lymph Auto 03/16/20 20:39 10.8 Low [place] Auto 03/16/20 20:39 11.4 Eos Auto 03/16/20 20:39 0.1 Basophil Auto 03/16/20 20:39 0.4 Neutro Absolute 03/16/20 20:39 10.0 High Lymph Absolute 03/16/20 20:39 1.4 [place] Absolute 03/16/20 20:39 1.5 High Eos Absolute [...] available (MRI) Silvia Castañeda Electronically signed by Aneta DANIELLE, Lima Richards 03/17/2020 04:16 EDT Normal [facility] Ethanolon 03-16-2020 Ethanol [Mass/Vol] mg/dL Normal <=9 [facility] Comment on above: Result Comment: To c onvert mg/dL to g/dL, divide result by 1,000. Legal limit of intoxication is 80 mg/dL (0.08 g/dL). Performed By: #### A LC #### [address] [address] UA w Culture if Indon 2019 Color (U) Terri Normal [facility] Comment on above: Performed By: #### U CI #### [address] [address] Glucose (U) [Mass/Vol] Negative Normal Negative [facility] Comment on above: Performed By: #### U CI #### [address] [place] [address] Ketones Ql (U) 20 mg/dL Abnormal Negative [facility] Comment on above: Performed By: #### U CI #### [address] [place] [address] UA Blood Small Abnormal Negative [facility] Comment on above: Performed By: #### U CI #### [address] [place] [address] UA Clarity Cloudy Normal [facility] Comment on above: Performed By: #### U CI #### [address] [address] UA Leukocyte Esterase Trace Abnormal Negative [facility] Comment on above: Performed By: #### U CI #### [address] [place] [address] UA Nitrite Negative Normal Negative [facility] Comment on above: Performed By: #### U CI #### [address] [address] UA pH 5.0 Normal 4.5 - 7.8 [facility] Comment on above: Performed By: #### U CI #### [address] [address] UA Protein 100 mg/dL Abnormal Negative [facility] Comment on above: Performed By: #### U CI #### [address] [address] UA Source Clean Catch Normal [facility] Comment on above: Performed By: #### U CI #### [address] [address] UA Spec Grav 1.025 Normal 1.003-1.035 [facility] Comment on above: Performed By: #### U CI #### [address] [address] UA Urobilinogen 0.2 mg/dL Normal 0.2 - 1.0 [facility] Comment on above: Performed By: #### U CI #### [address] [address] Urobilinogen Qn (U) Small Abnormal Negative [facility] Comment on above: Performed By: #### U CI #### [address] [address] UDS Compon 03-16-2020 Creatinine [Mass/Vol] mg/dL Normal [facility] Comment on above: Performed By: #### C [id number] #### [address] [address] Ur Amph Scrn Positive Abnormal NEG = <1000 [facility] Comment on above: Result Comment: This unconfirmed positive screening result is to be used for medical treatment purposes only. Unconfirmed screening results must not be used for non-medical purposes. (e.g. employment testing, legal testing). Performed By: #### C [id number] #### [address] [address] Ur Anastasia Scrn Negative Normal NEG = <200 [facility] Comment on above: Performed By: #### C [id number] #### [facility] [address] [place] [address] Ur Benzodia Scrn Negative Normal NEG = <200 [facility] Comment on above: Performed By: #### C [id number] #### [facility] [address] [place] [address] Ur Cannab Scrn Negative Normal NEG = <50 [facility] Comment on above: Performed By: #### C [id number] #### [facility] [address] [place] [address] Ur Cocaine Scrn Negative Normal NEG = <300 [facility] Comment on above: Performed By: #### C [id number] #### [address] [place] [address] Ur Methadone Scn Negative Normal NEG = <300 [facility] Comment on above: Performed By: #### C [id number] #### [address] [place] [address] Ur Opiate Scrn Negative Normal NEG = <300 [facility] Comment on above: Performed By: #### C [id number] #### [facility] [address] [place] [address], [place] [address] Ur Oxy Screen Negative Normal NEG = <100 [facility] Comment on above: Performed By: #### C [id number] #### [address] [place] [address] Ur Oxy Scrn Qnt 54 ng/mL Normal <=99 [facility] Comment on above: Performed By: #### C [id number] #### [facility] [address] [place] [address] [place] [address] Ur PCP Scrn Negative Normal NEG = <25 [facility] Comment on above: Performed By: #### C [id number] #### [address] [place] [address] UA pH 5.0 Normal 4.5 - 7.8 [facility] Comment on above: Performed By: #### C [id number] #### [facility] [address] [place] [address] UA Spec Grav 1.024 Normal 1.003-1.035 [facility] Comment on above: Performed By: #### C [id number] #### [facility] [address] [place] [address] Chlamydia/GC DNA, Uron 11-23 Chlamydia Probe, Ur Negative Normal NEG [facility] Comment on above: Result Comment: CHLA [...] Performed By: #### H IVCMB, PHEP #### [address] [place], [place] [id number] [employer]: Dom Fowler MD #### CP #### [facility] [address] [place] [address] [employer]: Shakeel Graham MD Gonorrhea Probe, Ur Negative Normal NEG [facility] Comment on above: Result Comment: NEIS [...] Performed By: #### H IVCMB, PHEP #### [address] [place], [place] [id number] [employer]: Dom Fowler MD #### CP #### [facility] [address] [place] [address] [employer]: Shakeel Graham MD Cult,Urineon 11-22-2019 Cult,Urine Specimen Description .VOIDED URINE Special Requests NOT REPORTED Culture NO SIGNIFICANT GROWTH Report Status FINAL 11/22/2019 Normal [facility] Comment on above: Performed By: #### H IVCMB, PHEP #### [facility] [address] [place] [address] [employer]: Dom Fowler MD #### CP #### [facility] [address] [place] [address] [employer]: Shakeel Graham MD HIV Ag/Abon 11-21-2019 HIV Ag/Ab NONREACTIVE Normal [facility] Comment on above: Result Comment: No l aboratory evidence of HIV infection. If acute HIV infection is suspected, consider testing for HIV-1 RNA. Performed By: #### H IVCMB, PHEP #### [address] [address] [employer]: Dom Fowler MD #### CP #### [facility] [address] [place] [address] [employer]: Shakeel Graham MD HIV Screenon 11-21-2019 HIV Ag/Ab NONREACTIVE NONREACTIVE [place], [place] Comment on above: No laboratory eviden ce of HIV infection. If acute HIV infection is suspected, consider testing for HIV-1 RNA. Hep C Abon 11-21-2019 Hep C Ab REACTIVE Abnormal NR [facility] Comment on above: Result Comment: The [...] Performed By: #### H IVCMB, PHEP #### [facility] [employer] [facility] [place] [address] [employer]: Dom Fowler MD #### CP #### [facility] [address] [place] [address] [place] [address] [employer]: Shakeel Graham MD Profileon 0 Hep B Surf Ag NONREACTIVE Normal NR [facility] Comment on above: Performed By: #### H IVCMB, PHEP #### [address] [address] [employer]: Dom Fowler MD #### CP #### [address] [place] [address] [employer]: Shakeel Graham MD T.pallidum Ab Screen NONREACTIVE Normal NR [facility] Comment on above: Result Comment: T. pallidum antibodies are not detected. There is no serological evidence of infection with T. pallidum (early primary syphilis cannot be excluded). Retest in 2-4 weeks if syphilis is clinically suspect. Performed By: #### H IVCMB, PHEP #### [address] [address] [employer]: Dom Fowler MD #### CP #### [address] [place], [place] [id number] [employer]: Shakeel Graham MD Rubella Ab, IgG 323.1 IU/mL Normal [facility] Comment on above: Result Comment: REFERENCE RANGE: <5.0 NON-REACTIVE (non-immune) 5.0 TO 9.9 EQUIVOCAL >=10.0 REACTIVE (immune) Performed By: #### H IVCMB, PHEP #### [address] [address] [employer]: Dom Fowler MD #### CP #### [address] [place], [place] [id number] [employer]: Shakeel Graham MD HCG, Quanton 11-20-2019 HCG, Quant [id number] IU/L High <5 [facility] Comment on above: Result Comment: Non-preg [...] Performed By: #### H IVCMB, PHEP #### [facility] [employer] [address] [place] [address] [employer]: Dom Fowler MD #### CP #### [facility] [address] [place] [address] [employer]: Shakeel Graham MD HCG, Quantitative, on 11-20-2019 hCG Quant [id number] High <5 IU/L [place], [place] Comment on above: Non-preg premeno <=5 Postmeno <=8 Male <=3 If HCG results do not concur with clinical observations, additional testing to confirm results is recommended. Elevated results not associated with may be found in patients with other diseases such as tumors of the germ cells (testis, ovaries, etc.), bladder, pancreas, stomach, lungs, and liver. Interpretation and review of laboratory results Abnormal [place], [place] Hepatitis C Antibodyon 11-19 Hepatitis C Ab REACTIVE Abnormal NONREACTIVE [place], [place] Comment on above: The hepatitis C [...] Interpretation and review of laboratory results Abnormal [place], [place] TYPE AND SCREENon 0 11-20-2019 ABO/Rh Positive [place], [place] Profileon 0 Abs. Basophil 0.03 k/uL Normal 0.00-0.20 [facility] Comment on above: Performed By: #### H IVCMB, PHEP #### [facility] [employer] [address] [place] [address] [employer]: Dom Fowler MD #### CP #### [facility] [address] [place] [address] [address] [place] [id number] [employer]: Shakeel Graham MD Abs.Imm.Granulocyte <0.03 Normal 0.00-0.30 [facility] Comment on above: Performed By: #### H IVCMB, PHEP #### [address] [address] [employer]: Dom Fowler MD #### CP #### [facility] [address] [place] [address] [place] [address] [employer]: Shakeel Graham MD Abs.Neutrophil (Seg) 2.95 k/uL Normal 1.50-8.10 [facility] Comment on above: Performed By: #### H IVCMB, PHEP #### [place] [address] [employer]: Dom Fowler MD #### CP #### [facility] [address] [place] [address] [place] [address] [employer]: Shakeel Graham MD Basophils/100 WBC (Bld) 1 % Normal 0-2 [facility] Comment on above: Performed By: #### H IVCMB, PHEP #### [place] [address] [employer]: Dom Fowler MD #### CP #### [facility] [address] [place] [address] [place] [address] [employer]: Shakeel Graham MD Eosinophils (Bld) [#/Vol] 0.09 10*3/uL Normal 0.00-0.44 [facility] Comment on above: Performed By: #### H IVCMB, PHEP #### [place] [address] [employer]: Dom Fowler MD #### CP #### [address] [place], [place] [id number] [employer]: Shakeel Graham MD Eosinophils/100 WBC (Bld) 2 % Normal 1-4 [facility] Comment on above: Performed By: #### H IVCMB, PHEP #### [address] [id number] [employer]: Dom Fowler MD #### CP #### [address] [place], [place] [id number] [employer]: Shakeel Graham MD Erythrocyte distribution width (RBC) [Ratio] 14.0 % Normal 11.8-14.4 [facility] Comment on above: Performed By: #### H IVCMB, PHEP #### [address] [id number] [employer]: Dom Fowler MD #### CP #### [address] [place] [id number] [employer]: Shakeel Graham MD Hematocrit (Bld) [Volume fraction] 37.7 % Normal 36.3-47.1 [facility] Comment on above: Performed By: #### H IVCMB, PHEP #### [address] [address] [employer]: Dom Fowler MD #### CP #### [address] [place], [place] [id number] [employer]: Shakeel Graham MD Hemoglobin (Bld) [Mass/Vol] 11.8 g/dL Low 11.9-15.1 [facility] Comment on above: Performed By: #### H IVCMB, PHEP #### [address] [address] [employer]: Dom Fowler MD #### CP #### [address] [place], [place] [id number] [employer]: Shakeel Graham MD Immature granulocytes (Bld) [#/Vol] 0 % Normal 0 [facility] Comment on above: Performed By: #### H IVCMB, PHEP #### [address] [address] [employer]: Dom Fowler MD #### CP #### [address] [place] [id number] [employer]: Shakeel Graham MD Lymphocytes (Bld) [#/Vol] 1.50 10*3/uL Normal 1.10-3.70 [facility] Comment on above: Performed By: #### H IVCMB, PHEP #### [address] [address] [employer]: Dom Fowler MD #### CP #### [address] [place] [id number] [employer]: Shakeel Graham MD Lymphocytes/100 WBC (Bld) 30 % Normal 24-43 [facility] Comment on above: Performed By: #### H IVCMB, PHEP #### [address] [address] [employer]: Dom Fowler MD #### CP #### [address] [place] [id number] [employer]: Shakeel Graham MD MCH (RBC) [Entitic mass] 26.5 pg Normal 25.2-33.5 [facility] Comment on above: Performed By: #### H IVCMB, PHEP #### [address] [address] [employer]: Dom Fowler MD #### CP #### [address] [place] [id number] [employer]: Shakeel Graham MD MCHC (RBC) [Mass/Vol] 31.3 g/dL Normal 28.4-34.8 [facility] Comment on above: Performed By: #### H IVCMB, PHEP #### [address] [id number] [employer]: Dom Fowler MD #### CP #### [address] [place] [id number] [employer]: Shakeel Graham MD MCV (RBC) [Entitic vol] 84.5 fL Normal 82.6-102.9 [facility] Comment on above: Performed By: #### H IVCMB, PHEP #### [address] [id number] [employer]: Dom Fowler MD #### CP #### [address] [place] [id number] [employer]: Shakeel Graham MD Monocytes (Bld) [#/Vol] 0.37 10*3/uL Normal 0.10-1.20 [facility] Comment on above: Performed By: #### H IVCMB, PHEP #### [address] [id number] [employer]: Dom Fowler MD #### CP #### [address] [place] [id number] [employer]: Shakeel Graham MD Monocytes/100 WBC (Bld) 8 % Normal 3-12 [facility] Comment on above: Performed By: #### H IVCMB, PHEP #### [address] [address] [employer]: Dom Fowler MD #### CP #### [address] [place] [address] [employer]: Shakeel Graham MD Neutrophil (Seg) 59 % Normal 36-65 [facility] Comment on above: Performed By: #### H IVCMB, PHEP #### [address] [place] [address] [employer]: Dom Fowler MD #### CP #### [facility] [address] [place], [place] [id number] [employer]: Shakeel Graham MD NRBC Automated 0.0 per 100 WBC Normal 0.0 [facility] Comment on above: Performed By: #### H IVCMB, PHEP #### [address] [address] [employer]: Dom Fowler MD #### CP #### [facility] [address] [place] [phone] [employer]: Shakeel Graham MD Platelet mean volume (Bld) [Entitic vol] 11.2 fL Normal 8.1-13.5 [facility] Comment on above: Performed By: #### H IVCMB, PHEP #### [address] [address] [employer]: Dom Fowler MD #### CP #### [facility] [address] [place] [id number] [employer]: Shakeel Graham MD Platelets (Bld) [#/Vol] 254 10*3/uL Normal 138-453 [facility] Comment on above: Performed By: #### H IVCMB, PHEP #### [address] [address] [employer]: Dom Fowler MD #### CP #### [facility] [address] [place], [place] [id number] [employer]: Shakeel Graham MD RBC (Bld) [#/Vol] 4.46 10*6/uL Normal 3.95-5.11 [facility] Comment on above: Performed By: #### H IVCMB, PHEP #### [facility] [address] [place] [address] [employer]: Dom Fowler MD #### CP #### [facility] [address] [place] [address] [employer]: Shakeel Graham MD WBC (Bld) [#/Vol] 5.0 10*3/uL Normal 3.5-11.3 [facility] Comment on above: Performed By: #### H IVCMB, PHEP #### [address] [address] [employer]: Dom Fowler MD #### CP #### [facility] [address] [place] [address] [place] [address] [employer]: Shakeel Graham MD Auto Diff Performed NOT REPORTED Normal [facility] Comment on above: Performed By: #### H IVCMB, PHEP #### [address] [address] [employer]: Dom Fowler MD #### CP #### [address] [place] [address] [employer]: Shakeel Graham MD Platelets (Bld) [#/Vol] NOT REPORTED Normal [facility] Comment on above: Performed By: #### H IVCMB, PHEP #### [address] [address] [employer]: Dom Fowler MD #### CP #### [address] [place] [address] [employer]: Shakeel Graham MD RBC morphology finding Nom (Bld) NOT REPORTED Normal [facility] Comment on above: Performed By: #### H IVCMB, PHEP #### [address] [address] [employer]: Dom Fowler MD #### CP #### [facility] [address] [place], [place] [phone] [employer]: Shakeel Graham MD WBC Morphology NOT REPORTED Normal [facility] Comment on above: Performed By: #### H IVCMB, PHEP #### [facility] [address] [place] [address] [employer]: Dom Fowler MD #### CP #### [facility] [address] [place] [address] [place] [place] [id number] [employer]: Shakeel Graham MD Type + Scrnon 11-19 Type + Scrn Negative Normal [facility] Comment on above: Performed By: #### H IVCMB, PHEP #### [address] [address] [employer]: Dom Fowler MD #### CP #### [address] [place] [id number] [employer]: Shakeel Graham MD Toxicology [facility] Amphetamine(s),Ur Negative Normal NEG [facility] Comment on above: Performed By: #### H IVCMB, PHEP #### [address] [address] [employer]: Dom Fowler MD #### CP #### [address] [place], [place] [phone] [employer]: Shakeel Graham MD Barbiturate(s),Ur Negative Normal NEG [facility] Comment on above: Performed By: #### H IVCMB, PHEP #### [address] [address] [employer]: Dom Fowler MD #### CP #### [address] [place] [address] [employer]: Shakeel Graham MD Benzodiazepine(s) Negative Normal NEG [facility] Comment on above: Performed By: #### H IVCMB, PHEP #### [facility] [address] [place] [address] [employer]: Dom Fowler MD #### CP #### [facility] [address] [place] [address] [place] [place], [place] [id number] [employer]: Shakeel Graham MD Buprenorphrine, Ur Negative Normal NEG [facility] Comment on above: Performed By: #### H IVCMB, PHEP #### [facility] [address] [place] [address] [employer]: Dom Fowler MD #### CP #### [address] [place] [id number] [employer]: Shakeel Graham MD Cannabinoid(s),Ur Negative Normal [facility] Comment on above: Performed By: #### H IVCMB, PHEP #### [facility] [address] [place] [address] [employer]: Dom Fowler MD #### CP #### [address] [place], [place] [phone] [employer]: Shakeel Graham MD Cocaine Metabolite Negative [facility] Comment on above: Performed By: #### H IVCMB, PHEP #### [facility] [address] [place] [address] [employer]: Dom Fowler MD #### CP #### [facility] [address] [place] [address] [address] [place], [place] [id number] [employer]: Shakeel Graham MD Methadone Ql (U) Negative Normal NEG [facility] Comment on above: Performed By: #### H IVCMB, PHEP #### [address] [address] [employer]: Dom Fowler MD #### CP #### [facility] [address] [place] [address] [place] [place], [place] [id number] [employer] Head: Shakeel Graham MD Methamphetamine, Ur Negative Normal NEG [facility] Comment on above: Performed By: #### H IVCMB, PHEP #### [facility] [address] [place] [id number] [employer]: Dom Fowler MD #### CP #### [address] [place], [place] [phone] [employer]: Shakeel Graham MD Opiate(s), Ur Negative Normal NEG [facility] Comment on above: Performed By: #### H IVCMB, PHEP #### [address] [address] [employer]: Dom Fowler MD #### CP #### [address] [place], [place] [id number] [employer]: Shakeel Graham MD Oxycodone, Urine Negative Normal NEG [facility] Comment on above: Performed By: #### H IVCMB, PHEP #### [address] [address] [employer]: Dom Fowler MD #### CP #### [address] [place], [place] [id number] [employer]: Shakeel Graham MD Phencyclidine, Ur Negative Normal NEG [facility] Comment on above: Performed By: #### H IVCMB, PHEP #### [address] [address] [employer]: Dom Fowler MD #### CP #### [address] [place], [place] [id number] [employer]: Shakeel Graham MD Propoxyphene,Urine Negative Normal NEG [facility] Comment on above: Performed By: #### H IVCMB, PHEP #### [address] [address] [employer]: Dom Fowler MD #### CP #### [facility] [address] [place] [address] [address]. [place], [place] [phone] [employer]: Shakeel Graham MD Tricyclic antidepressants Screen Ql (U) Negative Normal NEG [facility] Comment on above: Result Comment: Drug screen results are to be used for medical purposes only. All positive results are unconfirmed. Testing for employment or legal uses should be sent to a reference laboratory for confirmation. Performed By: #### H IVCMB, PHEP #### [address] [address] [employer]: Dom Fowler MD #### CP #### [address] [place] [address] [employer]: Shakeel Graham MD Interpretive Info NOT REPORTED Normal [facility] Comment on above: Performed By: #### H IVCMB, PHEP #### [address] [address] [employer]: Dom Fowler MD #### CP #### [address] [place], [place] [id number] [employer]: Shakeel Graham MD MDMA, Urine NOT REPORTED Normal NEG [facility] Comment on above: Performed By: #### H IVCMB, PHEP #### [address] [address] [employer]: Dom Fowler MD #### CP #### [address] [place] [address] [employer]: Shakeel Graham MD Urine Drug Screen, Magda arizmendijudithon 11-20-2019 Amphetamine Screen, Ur Negative NEGATIVE [facility] [place] Barbiturate Screen, Ur Negative NEGATIVE [facility] [place] Benzodiazepine Screen, Urine Negative NEGATIVE [facility] [place] Buprenorphine Urine Negative NEGATIVE [facility] [place] Cannabinoid Scrn, Ur Negative NEGATIVE [facility] [place] Cocaine Metabolite, Urine Negative NEGATIVE [facility] [place] MDMA, Urine NOT REPORTED NEGATIVE [facility] [place] Methadone Screen, Urine Negative NEGATIVE [facility] [place] Methamphetamine, Urine Negative NEGATIVE [facility] [place] Opiates, Urine Negative NEGATIVE [facility] [place] Oxycodone Screen, Ur Negative NEGATIVE [facility] [place] Phencyclidine, Urine Negative NEGATIVE [facility] [place] Propoxyphene, Urine Negative NEGATIVE [facility] [place] Test Information NOT REPORTED [facility] [place] Tricyclic Antidepressants, Urine Negative NEGATIVE [facility] [place] Comment on above: Drug screen results are to be used for medical purposes only. All positive results are unconfirmed. Testing for employment or legal uses should be sent to a reference laboratory for confirmation. Chlamydia/GC DNA, Uron 06-20 Chlamydia Probe, Ur Negative Normal NEG [facility] Comment on above: Result Comment: CHLA [...] nucleic acid target. Performed By: #### U [facility] #### [facility] [address] [place] [address] [employer]: Dom Fowler MD Gonorrhea Probe, Ur Negative Normal NEG [facility] Comment on above: Result Comment: NEIS [...] target. Performed By: #### U CGP #### [address] [address] [employer]: Dom Fowler MD Cult,Urineon 06-20-2019 Cult,Urine Specimen Description .CLEAN CATCH URINE Special Requests NOT REPORTED Culture NO SIGNIFICANT GROWTH Report Status FINAL 06/20/2019 Normal [facility] Comment on above: Performed By: #### H IVCMB, PHEP #### [address] [address] [employer]: Dom Fowler MD #### CP #### [facility] [address] [place] [address] [employer]: Shakeel Graham MD HIV Ag/Abon 06-20-2019 HIV Ag/Ab NONREACTIVE Normal [facility] Comment on above: Result Comment: No l aboratory evidence of HIV infection. If acute HIV infection is suspected, consider testing for HIV-1 RNA. Performed By: #### A HCV, HIVCMB #### [address] [address] [employer]: Dom Fowler MD Hep C Abon 06-20-2019 Hep C Ab REACTIVE Abnormal [facility] Comment on above: Result Comment: [...] Performed By: #### A HCV, HIVCMB #### [address] [address] [employer]: Dom Fowler MD Profileon 9 T.pallidum Ab Screen NONREACTIVE Normal [facility] Comment on above: Result Comment: T. pallidum antibodies are not detected. There is no serological evidence of infection with T. pallidum (early primary syphilis cannot be excluded). Retest in 2-4 weeks if syphilis is clinically suspect. Performed By: #### P RENAT #### [address] [place] [address] [employer]: Dom Fowler MD [facility] [address] [place] [address] [place] [place], [place] [phone] [employer]: Shakeel Graham MD Hep B Surf Ag NONREACTIVE Normal [facility] Comment on above: Performed By: #### P RENAT #### [address] [address] [employer]: Dom Fowler MD [address] [place] [id number] [employer]: Shakeel Graham MD Rubella Ab, IgG 286.1 IU/mL Normal [facility] Comment on above: Result Comment: REFERENCE RANGE: <5.0 NON-REACTIVE (non-immune) 5.0 TO 9.9 EQUIVOCAL >=10.0 REACTIVE (immune) Performed By: #### P RENAT #### [address] [address] [employer]: Dom Fowler MD [address] [place], [facility] [employer]: Shakeel Graham MD HCG, Quanton 06-19-2019 HCG, Quant 36170 IU/L High <5 [facility] Comment on above: Result Comment: Non-preg [...] liver. Performed By: #### B HCG #### [address] [place], [place] [phone] [employer]: Shakeel Graham MD HCG, Quantitative, on 06-19-2019 hCG Quant 12435 High <5 IU/L [place], [place] Comment on above: Non-preg premeno <=5 Postmeno <=8 Male <=3 If HCG results do not concur with clinical observations, additional testing to confirm results is recommended. Elevated results not associated with may be found in patients with other diseases such as tumors of the germ cells (testis, ovaries, etc.), bladder, pancreas, stomach, lungs, and liver. Interpretation and review of laboratory results Abnormal [place] HIV Screenon 06-19-2019 HIV Ag/Ab NONREACTIVE NONREACTIVE [place], [place] Comment on above: No laboratory eviden ce of HIV infection. If acute HIV infection is suspected, consider testing for HIV-1 RNA. Hepatitis C Antibodyon 06-19 Hepatitis C Ab REACTIVE Abnormal NONREACTIVE [place], [place] Comment on above: The hepatitis C [...] Interpretation and review of laboratory results Abnormal [place] PROFILE Ion 019 Basophils (Bld) [#/Vol] 10*3/uL [place] Basophils/100 WBC (Bld) 1 % 0 - 2 % [place] Differential Type NOT REPORTED [place] Eosinophils (Bld) [#/Vol] 0.09 10*3/uL [place] Eosinophils/100 WBC (Bld) 2 % 1 - 4 % [place] Erythrocyte distribution width (RBC) [Ratio] 15.7 % High 11.8 - 14.4 % [place] Hematocrit (Bld) [Volume fraction] 36.5 % 36.3 - 47.1 % [place] Hemoglobin (Bld) [Mass/Vol] 11.2 g/dL Low 11.9 - 15.1 g/dL [place] Hepatitis B Surface Ag NONREACTIVE NONREACTIVE [place] Immature granulocytes (Bld) [#/Vol] 0 % 0 [place] Immature granulocytes (Bld) [#/Vol] 10*3/uL [place] Interpretation and review of laboratory results Abnormal [place] Lymphocytes (Bld) [#/Vol] 1.98 10*3/uL [place] Lymphocytes/100 WBC (Bld) 46 % High 24 - 43 % [place] MCH (RBC) [Entitic mass] 25.6 pg 25.2 - 33.5 pg [place] MCHC (RBC) [Mass/Vol] 30.7 g/dL 28.4 - 34.8 g/dL [place] MCV (RBC) [Entitic vol] 83.3 fL 82.6 - 102.9 fL [place] Monocytes (Bld) [#/Vol] 0.37 10*3/uL [place] Monocytes/100 WBC (Bld) 9 % 3 - 12 % [place] Platelet mean volume (Bld) [Entitic vol] 11.6 fL 8.1 - 13.5 fL [place] Platelets (Bld) [#/Vol] NOT REPORTED [place] Platelets (Bld) [#/Vol] 196 10*3/uL [place] RBC (Bld) [#/Vol] 4.38 10*6/uL 3.95 - 5.1 1 m/uL [place] RBC morphology finding Nom (Bld) NOT REPORTED [place] Rubella virus IgG Ql (S) 286.1 IU/mL [place] Comment on above: REFERENCE RANGE: <5.0 NON-REACTIVE (non-immune) 5.0 TO 9.9 EQUIVOCAL >=10.0 REACTIVE (immune) Segmented neutrophils/100 WBC (Bld) 42 % 36 - 65 % [place] Segs Absolute 1.75 [place] T. pallidum, IgG NONREACTIVE NONREACTIVE [place] Comment on above: T. pallidum antibodies are not detected. There is no serological evidence of infection with T. pallidum (early primary syphilis cannot be excluded). Retest in 2-4 weeks if syphilis is clinically suspect. WBC (Bld) [#/Vol] 4.2 10*3/uL [place] WBC (Bld) [#/Vol] 0.0 10*3/uL 0.0 per 100 WBC [place] WBC Morphology NOT REPORTED [place] TYPE AND SCREENon 1 ABO/Rh Positive [place] Profileon 9 Abs. Basophil <0.03 Normal 0.00-0.20 [facility] Comment on above: Performed By: #### P RENAT #### [address] [address] [employer]: Dom Fowler MD [facility] [address] [place] [address] [place] [address] [employer]: Shakeel Graham MD Abs.Imm.Granulocyte <0.03 Normal 0.00-0.30 [facility] Comment on above: Performed By: #### P RENAT #### [address] [address] [employer]: Dom Fowler MD [facility] [address] [place] [address] [place] [address] [employer]: Shakeel Graham MD Abs.Neutrophil (Seg) 1.75 k/uL Normal 1.50-8.10 [facility] Comment on above: Performed By: #### P RENAT #### [address] [address] [employer]: Dom Fowler MD [facility] [address] [place] [address] [place] [address] [employer]: Shakeel Graham MD Basophils/100 WBC (Bld) 1 % Normal 0-2 [facility] Comment on above: Performed By: #### P RENAT #### [address] [place] [address] [employer]: Dom Fowler MD [address] [place] [facility]83 [employer]: Shakeel Graham MD Eosinophils (Bld) [#/Vol] 0.09 10*3/uL Normal 0.00-0.44 [facility] Comment on above: Performed By: #### P RENAT #### [address] [address] [employer]: Dom Fowler MD [address] [place] [address] [employer]: Shakeel Graham MD Eosinophils/100 WBC (Bld) 2 % Normal 1-4 [facility] Comment on above: Performed By: #### P RENAT #### [address] [address] [employer]: Dom Fowler MD [address] [place] [id number] [employer]: Shakeel Graham MD Erythrocyte distribution width (RBC) [Ratio] 15.7 % High 11.8-14.4 [facility] Comment on above: Performed By: #### P RENAT #### [address] [address] [employer]: Dom Fowler MD [address] [place] [address] [employer]: Shakeel Graham MD Hematocrit (Bld) [Volume fraction] 36.5 % Normal 36.3-47.1 [facility] Comment on above: Performed By: #### P RENAT #### [address] [address] [employer]: Dom Fowler MD [address] [place] [phone] [employer]: Shakeel Graham MD Hemoglobin (Bld) [Mass/Vol] 11.2 g/dL Low 11.9-15.1 [facility] Comment on above: Performed By: #### P RENAT #### [address] [place] [address] [employer]: Dom Fowler MD [facility] [address] [place] [address] Dr. [place] [id number] [employer]: Shakeel Graham MD Immature granulocytes (Bld) [#/Vol] 0 % Normal 0 [facility] Comment on above: Performed By: #### P RENAT #### [address] [address] [employer]: Dom Fowler MD [address] [place] [phone] [employer]: Shakeel Graham MD Lymphocytes (Bld) [#/Vol] 1.98 10*3/uL Normal 1.10-3.70 [facility] Comment on above: Performed By: #### P RENAT #### [address] [address] [employer]: Dom Fowler MD [address] [place] [phone] [employer]: Shakeel Graham MD Lymphocytes/100 WBC (Bld) 46 % High 24-43 [facility] Comment on above: Performed By: #### P RENAT #### [address] [address] [employer]: Dom Fowler MD [address] [place] [phone] [employer]: Shakeel Graham MD MCH (RBC) [Entitic mass] 25.6 pg Normal 25.2-33.5 [facility] Comment on above: Performed By: #### P RENAT #### [address] [address] [employer]: Dom Fowler MD [facility] [address] [place] [address] Dr. [place], [place] [phone] [employer]: Shakeel Graham MD MCHC (RBC) [Mass/Vol] 30.7 g/dL Normal 28.4-34.8 [facility] Comment on above: Performed By: #### P RENAT #### [address] [id number] [employer]: Dom Fowler MD [address] [place] [phone] [employer]: Shakeel Graham MD MCV (RBC) [Entitic vol] 83.3 fL Normal 82.6-102.9 [facility] Comment on above: Performed By: #### P RENAT #### [address] [address] [employer]: Dom Fowler MD [address] [place] [phone] [employer]: Shakeel Graham MD Monocytes (Bld) [#/Vol] 0.37 10*3/uL Normal 0.10-1.20 [facility] Comment on above: Performed By: #### P RENAT #### [address] [address] [employer]: Dom Fowler MD [address] [place] [phone] [employer]: Shakeel Graham MD Monocytes/100 WBC (Bld) 9 % Normal 3-12 [facility] Comment on above: Performed By: #### P RENAT #### [address] [address] [employer]: Dom Fowler MD [address] [place] [phone] [employer]: Shakeel Graham MD Neutrophil (Seg) 42 % Normal 36-65 [facility] Comment on above: Performed By: #### P RENAT #### [address] [address] [employer]: Dom Fowler MD [facility] [address] [place] [address] [place] [address] [employer]: Shakeel Graham MD NRBC Automated 0.0 per 100 WBC Normal 0.0 [facility] Comment on above: Performed By: #### P RENAT #### [address] [address] [employer]: Dom Fowler MD [facility] [address] [place] [address] [place] [address] [employer]: Shakeel Graham MD Platelet mean volume (Bld) [Entitic vol] 11.6 fL Normal 8.1-13.5 [facility] Comment on above: Performed By: #### P RENAT #### [address] [address] [employer]: Dom Fowler MD [facility] [address] [place] [address] [place] [address] [employer]: Shakeel Graham MD Platelets (Bld) [#/Vol] 196 10*3/uL Normal 138-453 [facility] Comment on above: Performed By: #### P RENAT #### [address] [address] [employer]: Dom Fowler MD [facility] [address] [place] [address] [place] [address] [employer]: Shakeel Graham MD RBC (Bld) [#/Vol] 4.38 10*6/uL Normal 3.95-5.11 [facility] Comment on above: Performed By: #### P RENAT #### [address] [address] [employer]: Dom Fowler MD [facility] [address] [place] [address] [place] [address] [employer]: Shakeel Graham MD WBC (Bld) [#/Vol] 4.2 10*3/uL Normal 3.5-11.3 [facility] Comment on above: Performed By: #### P RENAT #### [address] [address] [employer]: Dom Fowler MD [address] [place] [address] [employer]: Shakeel Graham MD Auto Diff Performed NOT REPORTED Normal [facility] Comment on above: Performed By: #### P RENAT #### [address] [address] [employer]: Dom Fowler MD [address] [place] [address] [employer]: Shakeel Graham MD Platelets (Bld) [#/Vol] NOT REPORTED Normal [facility] Comment on above: Performed By: #### P RENAT #### [address] [address] [employer]: Dom Fowler MD [address] [place] [address] [employer]: Shakeel Graham MD RBC morphology finding Nom (Bld) NOT REPORTED Normal [facility] Comment on above: Performed By: #### P RENAT #### [address] [address] [employer]: Dom Fowler MD [address] [place] [address] [employer]: Shakeel Graham MD WBC Morphology NOT REPORTED Normal [facility] Comment on above: Performed By: #### P RENAT #### [address] [address] [employer]: Dom Fowler MD [facility] [address] [place], [place] [phone] [employer]: Shakeel Graham MD Type + Scrnon 06-19 Type + Scrn Negative [facility] Comment on above: Performed By: #### P RTYS #### [facility] [address] [place], [place] [phone] [employer]: Shakeel Graham MD Toxicology Scree, Urineon Amphetamine(s),Ur Negative Normal NEG [facility] Comment on above: Performed By: #### C PDAU #### [facility] [address] [place], [place] [id number] [employer]: Shakeel Graham MD Barbiturate(s),Ur Negative Normal NEG [facility] Comment on above: Performed By: #### C PDAU #### [facility] [address] [place], [place] [phone] [employer]: Shakeel Graham MD Benzodiazepine(s) Negative Normal [facility] Comment on above: Performed By: #### C PDAU #### [facility] [address] [place], [place] [phone] [employer]: Shakeel Graham MD Buprenorphrine, Ur Negative Normal NEG [facility] Comment on above: Performed By: #### C PDAU #### [facility] [address] [place], [place] [phone] [employer]: Shakeel Graham MD Cannabinoid(s),Ur Negative Normal NEG [facility] Comment on above: Performed By: #### C PDAU #### [facility] [address] [place], [place] [phone] [employer]: Shakeel Graham MD Cocaine Metabolite Negative Normal [facility] Comment on above: Performed By: #### C PDAU #### [facility] [address] [place], [place] [phone] [employer]: Shakeel Graham MD Methadone Ql (U) Negative Normal NEG [facility] Comment on above: Performed By: #### C PDAU #### [facility] [address] [place] [address] [employer]: Shakeel Graham MD Methamphetamine, Ur Negative Normal NEG [facility] Comment on above: Performed By: #### C PDAU #### [facility] [address] [place], [place] [phone] [employer]: Shakeel Graham MD Opiate(s), Ur Negative Normal NEG [facility] Comment on above: Performed By: #### C PDAU #### [facility] [address] [place], [place] [phone] [employer]: Shakeel Graham MD Oxycodone, Urine Negative Normal NEG [facility] Comment on above: Performed By: #### C PDAU #### [facility] [address] [place], [place] [phone] [employer]: Shakeel Graham MD Phencyclidine, Ur Negative Normal NEG [facility] Comment on above: Performed By: #### C PDAU #### [facility] [address] [place], [place] [phone] [employer]: Shakeel Graham MD Propoxyphene,Urine Negative Normal NEG [facility] Comment on above: Performed By: #### C PDAU #### [facility] [address] [place], [place] [phone] [employer]: Shakeel Graham MD Tricyclic antidepressants Screen Ql (U) Positive Abnormal NEG [facility] Comment on above: Result Comment: Drug screen results are to be used for medical purposes only. All positive results are unconfirmed. Testing for employment or legal uses should be sent to a reference laboratory for confirmation. Performed By: #### C PDAU #### [facility] [address] [place] [address] [employer]: Shakeel Graham MD Interpretive Info NOT REPORTED Normal [facility] Comment on above: Performed By: #### C PDAU #### [facility] [address] [place] [address] [employer]: Shakeel Graham MD MDMA, Urine NOT REPORTED Normal NEG [facility] Comment on above: Performed By: #### C PDAU #### [facility] [address] [place] [address] [employer]: Shakeel Graham MD Urine Drug Screen, Magda [...] [place] MDMA, Urine NOT REPORTED NEGATIVE [facility] [place] Methadone Screen, Urine [...] [place] Tricyclic Antidepressants, Urine Positive Abnormal NEGATIVE [facility] [place] Comment on above: Drug screen results are to be used for medical purposes only. All positive results are unconfirmed. Testing for employment or legal uses should be sent to a reference laboratory for confirmation. HIV Ag/Abon 05-10-2019 HIV Ag/Ab NONREACTIVE Normal NR [facility] Comment on above: Result Comment: No l aboratory evidence of HIV infection. If acute HIV infection is suspected, consider testing for HIV-1 RNA. Performed By: #### H IVCMB, PHEP #### [facility] [employer] [address] [place] [address] [employer]: Dom Fowler MD #### CP #### [facility] [address] [place] [address] [place] [place], [place] [phone] [employer]: Shakeel Graham MD Hepatitis Acute [facility] 05-10 Hep A Ab,IgM NONREACTIVE Normal [facility] Comment on above: Performed By: #### H IVCMB, PHEP #### [address] [address] [employer]: Dom Fowler MD #### CP #### [address] [place], [place] [id number] [employer]: Shakeel Graham MD Hep B Core Ab,IgM NONREACTIVE Normal [facility] [facility] Comment on above: Performed By: #### H IVCMB, PHEP #### [address] [address] [employer]: Dom Fowler MD #### CP #### [facility] [address] [place] [address] [place]. [place], [place] [id number] [employer]: Shakeel Graham MD Hep B Surf Ag NONREACTIVE Normal [facility] Comment on above: Performed By: #### H IVCMB, PHEP #### [address] [address] [employer]: Dom Fowler MD #### CP #### [address] [place], [place] [id number] [employer]: Shakeel Graham MD Hep C Ab REACTIVE Abnormal [facility] Comment on above: Result Comment: [...] Performed By: #### H IVCMB, PHEP #### [address] [address] [employer]: Dom Fowler MD #### CP #### [address] [place], [place] [phone] [employer]: Shakeel Graham MD Comp Metabolic Profon 2018 (cont.) Normal [facility] Comment on above: Result Comment: Aver age GFR for 20-29 years old: 116 mL/min/1.73sq m Chronic Kidney Disease: <60 mL/min/1.73sq m Kidney failure: <15 mL/min/1.73sq m eGFR calculated using average adult body mass. Additional eGFR calculator available at: http://www.[employer]/multiple_crcl_2012.htm Performed By: #### H IVCMB, PHEP #### [address] [address] [employer]: Dom Fowler MD #### CP #### [facility] [address] [place] [address] Dr. [place], [place] [id number] [employer]: Shakeel Graham MD Albumin [Mass/Vol] 4.3 g/dL Normal 3.5-5.2 [facility] Comment on above: Performed By: #### H IVCMB, PHEP #### [address] [address] [employer]: Dom Fowler MD #### CP #### [facility] [address] [place] [address] Dr. [place], [place] [phone] [employer]: Shakeel Graham MD Albumin/Globulin [Mass ratio] 1.4 {ratio} Normal 1.0-2.5 [facility] Comment on above: Performed By: #### H IVCMB, PHEP #### [address] [address] [employer]: Dom Fowler MD #### CP #### [facility] [address] [place], [place] [id number] [employer]: Shakeel Graham MD Alkaline Phos 50 U/L Normal 35-104 [facility] Comment on above: Performed By: #### H IVCMB, PHEP #### [facility] [address] [place] [address] [employer]: Dom Fowler MD #### CP #### [facility] [address] [place] [address] Dr. [place], [place] [id number] [employer]: Shakeel Graham MD ALT [Catalytic activity/Vol] 9 U/L Normal 5-33 [facility] Comment on above: Performed By: #### H IVCMB, PHEP #### [address] [address] [employer]: Dom Fowler MD #### CP #### [address] [place], [place] [id number] [employer]: Shakeel Graham MD Anion gap [Moles/Vol] 8 mmol/L Low 9-17 [facility] Comment on above: Performed By: #### H IVCMB, PHEP #### [address] [address] [employer]: Dom Fowler MD #### CP #### [address] [place], [place] [phone] [employer]: Shakeel Graham MD AST [Catalytic activity/Vol] 15 U/L Normal <32 [facility] Comment on above: Performed By: #### H IVCMB, PHEP #### [address] [address] [employer]: Dom oFwler MD #### CP #### [address] [place], [place] [phone] [employer]: Shakeel Graham MD Bilirubin Ql (U) 0.31 mg/dL Normal 0.3-1.2 [facility] Comment on above: Performed By: #### H IVCMB, PHEP #### [facility] [address] [place] [address] [employer]: Dom Fowler MD #### CP #### [facility] [address] [place], [place] [phone] [employer]: Shakeel Graham MD BUN/CRE Ratio 20 Normal 9-20 [facility] Comment on above: Performed By: #### H IVCMB, PHEP #### [address] [address] [employer]: Dom Fowler MD #### CP #### [facility] [address] [place] [id number] [employer]: Shakeel Graham MD Calcium [Mass/Vol] 9.4 mg/dL Normal 8.6-10.4 [facility] Comment on above: Performed By: #### H IVCMB, PHEP #### [address] [address] [employer]: Dom Fowler MD #### CP #### [facility] [address] [place] [address] Dr. [place], [place] [id number] [employer]: Shakeel Graham MD Chloride [Moles/Vol] 102 mmol/L Normal 98-107 [facility] Comment on above: Performed By: #### H IVCMB, PHEP #### [address] [address] [employer]: Dom Fowler MD #### CP #### [facility] [address] [place], [place] [phone] [employer]: Shakeel Graham MD CO2 [Moles/Vol] 28 mmol/L Normal 20-31 [facility] Comment on above: Performed By: #### H IVCMB, PHEP #### [address] [address] [employer]: Dom Fowler MD #### CP #### [facility] [address] [place] [address] [employer]: Shakeel Graham MD Creatinine [Mass/Vol] 0.92 mg/dL High 0.50-0.90 [facility] Comment on above: Performed By: #### H IVCMB, PHEP #### [address] [address] [employer]: Dom Fowler MD #### CP #### [facility] [address] [place], [place] [phone] [employer]: Shakeel Graham MD GFR, Amer >60 Normal >60 [facility] Comment on above: Performed By: #### H IVCMB, PHEP #### [address] [address] [employer]: Dom Fowler MD #### CP #### [facility] [address] [place] [address] Dr. [place], [place] [id number] [employer]: Shakeel Graham MD GFR,non Amer >60 Normal >60 [facility] Comment on above: Performed By: #### H IVCMB, PHEP #### [address] [address] [employer]: Dom Fowler MD #### CP #### [facility] [address] [place], [place] [phone] [employer]: Shakeel Graham MD Glucose [Mass/Vol] 91 mg/dL Normal 70-99 [facility] Comment on above: Performed By: #### H IVCMB, PHEP #### [address] [address] [employer]: Dom Fowler MD #### CP #### [facility] [address] [place] [address] Dr. [place], [place] [phone] [employer]: Shakeel Graham MD Potassium [Moles/Vol] 4.3 mmol/L Normal 3.7-5.3 [facility] Comment on above: Performed By: #### H IVCMB, PHEP #### [address] [address] [employer]: Dom Fowler MD #### CP #### [facility] [address] [place] [address] Dr. [place], [place] [phone] [employer]: Shakeel Graham MD Protein [Mass/Vol] 7.4 g/dL Normal 6.4-8.3 [facility] Comment on above: Performed By: #### H IVCMB, PHEP #### [address] [id number] [employer]: Dom Fowler MD #### CP #### [facility] [address] [place] [address] [place], [place] [phone] [employer]: Shakeel Graham MD Sodium [Moles/Vol] 138 mmol/L Normal 135-144 [facility] Comment on above: Performed By: #### H IVCMB, PHEP #### [address] [address] [employer]: Dom Fowler MD #### CP #### [address] [place], [place] 3209483 [employer]: Shakeel Graham MD Staging: Normal [facility] Comment on above: Result Comment: Stag e 1: Some kidney damage normal GFR Stage 2: Mild kidney damage GFR 60-89 Stage 3: Moderate kidney damage GFR 30-59 Stage 4: Severe kidney damage GFR 15-29 Stage 5: Severe kidney damage GFR <15 ESRD - chronic treatment by dialysis or transplant Performed By: #### H IVCMB, PHEP #### [address] [place] [phone] [employer]: Dom Fowler MD #### CP #### [facility] [address] [place] [address] [employer]: Shakeel Graham MD Urea nitrogen [Mass/Vol] 18 mg/dL Normal 6-20 [facility] Comment on above: Performed By: #### H IVC, PHEP #### [facility] [address] [place], [place] [phone] [employer]: Dom Fowler MD #### CP #### [facility] [address] [place] [address] [employer]: Shakeel Graham MD Comprehensive Metabolic Pane [facility] 05-09-2019 Albumin [Mass/Vol] 4.3 g/dL 3.5 - 5.2 g/dL [place], [place] Albumin/Globulin [Mass ratio] 1.4 {ratio} [place] ALP [Catalytic activity/Vol] 50 U/L 35 - 104 U/L [place] ALT [Catalytic activity/Vol] 9 U/L 5 - 33 U/L [place] Anion gap [Moles/Vol] 8 mmol/L Low 9 - 17 mmol/L [place] AST [Catalytic activity/Vol] 15 U/L <32 [place] Bilirubin Ql (U) 0.31 mg/dL 0.3 - 1.2 mg/dL [place], [place] Bun/Cre Ratio 20 [place] Calcium [Mass/Vol] 9.4 mg/dL 8.6 - 10. 4 mg/dL [place] Chloride [Moles/Vol] 102 mmol/L 98 - 107 mmol/L [place] CO2 [Moles/Vol] 28 mmol/L 20 - 31 mmol/L [place] Creatinine [Mass/Vol] 0.92 mg/dL High 0.5 - 0.9 mg/dL [place] GFR >60 >60 mL/min [place] GFR Non- >60 >60 mL/min [place] Glucose [Mass/Vol] 91 mg/dL 70 - 99 mg/dL [place] Interpretation and review of laboratory results Abnormal [place] Potassium [Moles/Vol] 4.3 mmol/L 3.7 - 5.3 mmol/L [place] Protein [Mass/Vol] 7.4 g/dL 6.4 - 8.3 g/dL [place] Sodium [Moles/Vol] 138 mmol/L 135 - 144 mmol/L [place] Urea nitrogen [Mass/Vol] 18 mg/dL 6 - 20 mg/dL [place] Hepatitis Panel, Acuteon HAV IgM IA Qn (S) NONREACTIVE NONREACTIVE [place] Hep B Core Ab, IgM NONREACTIVE NONREACTIVE [place] Hepatitis B Surface Ag NONREACTIVE NONREACTIVE [place] Hepatitis C Ab REACTIVE Abnormal NONREACTIVE [place], [place] Comment on above: The hepatitis C [...] Interpretation and review of laboratory results Abnormal [place] Metabolic Panelon 05-09-2019 GFR/1.73 sq M predicted among non-blacks MDRD (S/P/Bld) [Vol rate/Area] [place] Comment on above: Average GFR for 20-2 9 years old: 116 mL/min/1.73sq m Chronic Kidney Disease: <60 mL/min/1.73sq m Kidney failure: <15 mL/min/1.73sq m eGFR calculated using average adult body mass. Additional eGFR calculator available at: http://www.ERPLY.[employer]/multiple_crcl_2012.htm Stage 1: Some kidney damage normal GFR Stage 2: Mild kidney damage GFR 60-89 Stage 3: Moderate kidney damage GFR 30-59 Stage 4: Severe kidney damage GFR 15-29 Stage 5: Severe kidney damage GFR <15 ESRD - chronic treatment by dialysis or transplant Drug Scr, Abuse, Uron 2017 Amphetamine(s),Ur Positive Abnormal NEG [facility] Comment on above: Result Comment: (Pos itive cutoff 1000 ng/mL) Performed By: #### D AU ####[address] [address] Barbiturate(s),Ur Negative Normal NEG [facility] Comment on above: Result Comment: (Pos itive cutoff 200 ng/mL) Performed By: #### D AU ####[address] [address] Base excess Negative Normal NEG [facility] Comment on above: Result Comment: (Pos itive cutoff 300 ng/mL) Performed By: #### D AU ####[address] [address] Benzodiazepine(s) Negative Normal NEG [facility] Comment on above: Result Comment: (Pos itive cutoff 200 ng/mL) Performed By: #### D AU ####[address] [address] Cannabinoid(s),Ur Negative Normal NEG [facility] Comment on above: Result Comment: (Pos itive cutoff 50 ng/mL) Performed By: #### D AU ####[address] [address] Interpretive Info Assay provides medical screening only. The absence of expected drug(s) and/or Normal [facility] Comment on above: Result Comment: meta bolite(s) may indicate diluted or adulterated urine, limitations of testing or timing of collection.Testing for legal purposes should be confirmed by another method. To request confirmation of test result, please call the lab within 7 days of sample submission.Performed at [address] [place] [address] Performed By: #### D AU ####[address] [address] Opiate(s), Ur Negative Normal NEG [facility] Comment on above: Result Comment: (Pos itive cutoff 300 ng/mL) Performed By: #### D AU ####[address] [address] Oxycodone, Urine Negative Normal NEG [facility] Comment on above: Result Comment: (Pos itive cutoff 100 ng/mL) Performed By: #### D AU ####[address] [address] Phencyclidine, Ur Negative Normal NEG [facility] Comment on above: Result Comment: (Pos itive cutoff 25 ng/mL) Performed By: #### D AU ####[address] [address] Urine, methadone presence Negative Normal NEG [facility] Comment on above: Result Comment: (Pos itive cutoff 300 ng/mL) Performed By: #### D AU ####[address] [address] Buprenorphrine, Ur NOT REPORTED Normal NEG [facility] Comment on above: Performed By: #### D AU ####[address] [address] MDMA, Urine NOT REPORTED Normal NEG [facility] Comment on above: Performed By: #### D AU ####[address] [place] [address] Methamphetamine, Ur NOT REPORTED Normal NEG [facility] Comment on above: Performed By: #### D AU ####[address] [place] [address] Propoxyphene,Urine NOT REPORTED Normal NEG [facility] Comment on above: Performed By: #### D AU ####[address] [address] Urine, tricyclic antidepressants NOT REPORTED Normal NEG [facility] Comment on above: Performed By: #### D AU ####[address] [address] Lipid Profileon 11-05-2017 Cholesterol 137 mg/dL Normal <200 [facility] Comment on above: Result Comment: Chol esterol Guidelines: <200 Desirable 200-240 Borderline >240 Undesirable Performed By: #### L IPR ####[address] [address] Cholesterol to HDL Ratio 4.3 {ratio} Normal <5 [facility] Comment on above: Performed By: #### L IPR ####[address] [address] HDL Cholesterol 32 mg/dL Low >40 [facility] Comment on above: Result Comment: HDL Guidelines: <40 Undesirable 40-59 Borderline >59 Desirable Performed By: #### L IPR ####[address] [address] LDL Cholesterol 82 mg/dL Normal 0-130 [facility] Comment on above: Result Comment: LDL Guidelines: <100 Desirable 100-129 Near to/above Desirable 130-159 Borderline >159 UndesirableDirect (measured) LDL and calculated LDL are not interchangeable tests. Performed By: #### L IPR ####[address] [address] Triglyceride 113 mg/dL Normal <150 [facility] Comment on above: Result Comment: Trig lyceride Guidelines: <150 Desirable 150- 199 Borderline 200-499 High >499 Very high Based on AHA Guidelines for fasting triglyceride, June 2012.Performed at [facility] [address] [facility] [place] [address] Performed By: #### L IPR ####[facility] [facility] [place] [address] Cholesterol in VLDL mass conc NOT REPORTED Normal 10-16 [facility] Comment on above: Performed By: #### L IPR ####[facility] [facility] [place] [address] Encounters Encounter Date Encounter Type Care Provider Facility Start: 10-09-2023 End: 10-09-2023 ambulatory LUIS FELIPE HALL Not Available Start: 09-05-2023 End: 09-05-2023 ambulatory LUIS FELIPE HALL Not Available Start: 08-21-2023 End: 08-21-2023 ambulatory YOUSIF APARICIO Not Available Start: 08-01-2023 End: 08-01-2023 ambulatory LUIS FELIPE HALL Not Available Start: 12-21-2022 End: 12-21-2022 ambulatory IVAN CAMEJO . Facility:[facility] Start: 11-29-2022 End: 11-29-[address] RODO MENCHACA Facility:[facility] Start: 10-25-2022 [facility] Facility:[facility] Start: 10-11-2022 End: 10-11-[address] CHRISTINE SÁNCHEZ Facility:[facility] Start: 09-12-2022 End: 09-13-[address] YOUSIF APARICIO . Facility:[facility] Start: 08-19-2022 Encounter for preprocedural laboratory examination DR YOUSIF APARICIO . [facility] Start: 08-18-2022 End: 08-18-[address] [...] End: 04-27-2020 Patient encounter procedure ANTHONY PABON [facility] Start: 04-26-2020 End: 04-26-2020 Subsequent hospital visit by physician Rochelle ALFRED [facility] Start: 03-16-2020 End: 03-17-2020 Emergency department [place] [facility] [place] Start: 11-20-2019 End: 11-21-2019 Patient encounter procedure [place] [facility] Start: 11-20-2019 End: 11-20-2019 Subsequent hospital visit by physician Rochelle ALFRED Laboratory Comment on above: History of miscarria ge, currently ; Amenorrhea; Positive urine test; Encounter for supervision of normal in first trimester, unspecified ; Spotting in early Start: 06-19-2019 End: 06-20-2019 Patient encounter procedure [place] [facility] Start: 06-19-2019 End: 06-19-2019 Subsequent hospital visit by physician Rochelle ALFRED Laboratory Comment on above: Amenorrhea; Positive urine test; Encounter for supervision of normal in first trimester, unspecified ; Spotting in early Start: 05-09-2019 End: 05-10-2019 Patient encounter procedure KADI SCHROEDER [facility] Start: 05-09-2019 End: 05-09-2019 Subsequent hospital visit by physician Rochelle ALFRED [facility] Start: 11-05-2017 End: 11-07-2017 Evaluation and management of inpatient ANGELO SPICER [facility] Procedures Date Procedure Procedure Detail Performing Clinician Start: 04-26-2020 Acute hepatitis panel D DELLA SCHROEDER Start: 04-26-2020 Antibody hiv-1&hiv-2 single result KADI DESITNY Start: 04-26-2020 Blood count complete automated KADI DESTINY Start: 04-26-2020 Comprehensive metabo lic panel KADI DESTINY Start: 04-26-2020 Gonadotropin chorion ic qualitative KADI DESTINY Start: 04-26-2020 Iadna hepatitis c qu ant & reverse art installer KADI DESTINY Start: 04-26-2020 Acute hepatitis panel [...] Phone: Start: 11-20-2019 Hepatitis c antibody Ka stephanie E Pool Work Phone: Start: 11-20-2019 Obstetric [...] Start: 05-09-2019 Comprehensive metabo lic panel Kadi Schroeder Work Phone: Start: 11-06-2017 DISCHARGE PATIENT LUIS E SPICER Start: 11-05-2017 URINE DRUG SCREEN LUIS E SPICER Start: 11-05-2017 NURSING COMMUNICATION S VIKA SPICER Start: 11-05-2017 Lipid panel ANGELO PLAY WRITER Start: 11-05-2017 DIET GENERAL ANGELO PLAY WRITER Start: 11-05-2017 FULL CODE ANGELO PLAY WRITER Start: 11-05-2017 IP CONSULT TO HISTOR Y [...] type Expected: 12/12/2021, Expires: 02/11/2022 [facility] Work Phone: Comment on above: Expected: 12/12/2021 , Expires: 02/11/2022 Start: 05-18-2021 Influenza vaccination INFLUENZA (#1) [facility] Start: 06-26-2020 Cervical cancer screen Cervical [place] [place] Comment on above: Postponed from 01/11 (Not Indicated) Start: 06-26-2020 Screening for malign ant neoplasm of cervix Cervical cancer [place] Comment on above: Postponed from 01/11 (Not Indicated) Start: 05-18-2020 Influenza vaccination Flu vaccine (# 1) [facility] Start: 11-21-2019 End: 11-21-2019 Ancillary Procedure 11/21/2019 Ancillary Procedure Obstetrics and Gynecology [facility] Start: 06-26-2019 End: 06-26-2019 Routine 06/26/2019 Routine Obstetrics and Gynecology Georgette Leung APRN - BRI[address] [place] [address] [phone] [facility] 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 Start: 05-18-2019 Influenza vaccination Flu vaccine (# 1) [place] Start: 2015 Cervical cancer screen Cervical canc er [place] Start: 2015 PAP TESTING PAP TESTING [facility] Start: 2013 DTaP/Tdap/Td vaccine (1 - Tdap) DTaP/Tdap/Td vaccine (1 - Tdap) [place] Start: 2013 Urine microalbumin profile DTAP,TDAP,TD (1 - Tdap) [facility] Start: 01-12-2012 HEPATITIS C SCREENING HEPATITIS C SC REENING [facility] Start: 01-12-2012 HIV SCREENING HIV SCREENING [facility] Start: 2009 HPV vaccine (1 - Fem larissa 3-dose series) HPV vaccine (1 - Female 3-dose series) [place] Start: 2007 Varicella Vaccine (1 of 2 - 13+ 2-dose series) Varicella Vaccine (1 of 2 - 13+ 2-dose series) [place] Start: 2006 Adult depression screening assessment DEPRESSION SCREENING [facility] Start: 2005 DTaP/Tdap/Td vaccine (1 - Tdap) DTaP/Tdap/Td vaccine (1 - Tdap) [place] Start: 2005 HPV vaccine (1 - 2-d ose series) HPV vaccine (1 - 2-dose series) [place] Start: 2005 HPV vaccine (1 - Fem larissa 2-dose series) HPV vaccine (1 - Female 2-dose series) [place] Start: 01-12-2000 Pneumococcal 0-64 ye ars Vaccine (1 of 1 - PPSV23) Pneumococcal 0-64 years Vaccine (1 of 1 - PPSV23) [place] Start: 1999 COVID-19 VACCINE (1) COVID-19 VACCIN E (1) [facility] Start: 1995 Varicella vaccine (1 of 2 - 2-dose childhood series) Varicella vaccine (1 of 2 - 2-dose childhood series) [place] End: 11-20-2019 Bacteria identified Cx Nom (U) Urine Culture Microbiology Routine Amenorrhea Positive urine test Encounter for supervision of normal in first trimester, unspecified 1 Occurrences starting 11/20/2019 until 11/20/2019 [place] Comment on above: 1 Occurrences starti ng 11/20/2019 until 11/20/2019 Bacteria identified Cx Nom (U) [place] End: 06-19-2019 Bacteria identified Cx Nom (U) Urine Culture Microbiology Routine Amenorrhea Positive urine test Encounter for supervision of normal in first trimester, unspecified 1 Occurrences starting 06/19/2019 until 06/19/2019 [place] Comment on above: 1 Occurrences starti ng 06/19/2019 until 06/19/2019 End: 11-20-2019 C.trachomatis N.gonorrhoeae DNA, Urine C.trachomatis N.gonorrhoeae DNA, Urine Microbiology Routine Amenorrhea Positive urine test Encounter for supervision of normal in first trimester, unspecified 1 Occurrences starting 11/20/2019 until 11/20/2019 [place] Comment on above: 1 Occurrences starti ng 11/20/2019 until 11/20/2019 C.trachomatis N.gonorrhoeae DNA, Urine [place] End: 06-19-2019 C.trachomatis N.gonorrhoeae DNA, Urine C.trachomatis N.gonorrhoeae DNA, Urine Microbiology Routine Amenorrhea Positive urine test Encounter for supervision of normal in first trimester, unspecified 1 Occurrences starting 06/19/2019 until 06/19/2019 [place] Comment on above: 1 Occurrences starti ng 06/19/2019 until 06/19/2019 End: 04-26-2020 Hepatitis C RNA, quantitative, PCR Hepatitis C RNA, quantitative, PCR Lab Routine Once for 1 Occurrences starting 04/26/2020 until 04/26/2020 [place] Comment on above: Once for 1 Occurrenc es starting 04/26/2020 until 04/26/2020 Hepatitis C RNA, quantitative, PCR Hepatitis C RNA, quantitative, PCR Lab Routine 04/26/2020 7:30 AM EDT [place] End: 05-09-2019 HIV Screen HIV Screen Lab Routine Once for 1 Occurrences starting 05/09/2019 until 05/09/2019 [facility] Comment on above: Once for 1 Occurrenc es starting 05/09/2019 until 05/09/2019 HIV Screen HIV Screen Lab R outine 05/09/2019 2:53 PM EDT [facility] PRO[facility] PROF ILE I Lab Routine Amenorrhea Positive urine test Encounter for supervision of normal in first trimester, unspecified 11/20/2019 12:26 PM EST [facility] Payers Date Payer Category Payer Medicaid [employer] [employer] [employer] [id number] 2020-Present [phone] [address] [facility] [place] [address] Medicaid [id number] [facility] xxxxxxxxxxxx 2016-Present [phone] [address] [facility] [place] [address] xxxxxxxxxxxx [id number] 1994 Unknown [id number] 1994 Unknown [id number] 1994 Unknown [id number] 2.16.840.1.504589.3.579.2.173 1994 Unknown [id number] 2.16.840.1.873719.3.579.2.173 1994 Unknown [id number] 2.16.840.1.238218.3.579.2.173 1994 Unknown [id number] 2.16.840.1.968647.3.579.2.593 1994 Unknown [id number] 2.16.840.1.821707.3.579.2.593 1994 Unknown [id number] 2.16.840.1.982054.3.579.2.593 1994 Unknown [id number] 2.16.840.1.762174.3.579.2.593 1994 Unknown [id number] 2.16.840.1.836252.3.579.2.593 1994 Unknown [id number] 2.16.840.1.742173.3.579.2.593 1994 Unknown [id number] 2.16.840.1.324137.3.579.2.593 1994 Unknown [id number] 2.16.840.1.953795.3.579.2.593 1994 Unknown [id number] 2.16.840.1.345422.3.579.2.593 1994 Unknown [id number] 2.16.840.1.475852.3.579.2.593 1994 Unknown [id number] 2.16.840.1.761812.3.579.2.125 9 1994 Unknown [id number] 2.16.840.1.084207.3.579.2.125 9 1994 Unknown [id number] 2.16.840.1.195819.3.579.2.125 9 1994 Unknown [id number] 2.16.840.1.521006.3.579.2.125 9 1959 Unknown [id number] Social History Date Type Detail Facility Start: 11-05-2017 End: 10-28-2021 Tobacco smoking status MTIS Never smoker [facility] Start: 11-05-2017 End: 06-19-2019 Alcohol intake No [place], [place] Start: 1995 Sex Assigned At Not on file [facility] [place] Start: 06-19-2019 End: 11-20-2019 Tobacco smoking status NHIS Current every day smoker [facility] Start: 06-19-2019 End: 11-20-2019 Cigarettes smoked current (pack per day) - Reported [facility] Start: 11-20-2019 Alcohol intake Current non-dr countersinker balance screw hole of alcohol (finding) [facility] Start: 05-01-2019 Margie hernández [facility] Start: 11-20-2019 End: 10-28-2021 Tobacco use and exposure Never used [facility] Start: 10-28-2021 End: 11-08-2021 Alcohol intake Ex-drinker (finding) [facility] Clinical Note 08-18-2022 Note Date & Type Note Facility 08-18-2022 Note OPERATIVE NOTE OPERATION DATE: 08/18/2022 PROCEDURE: Suction D AND C. PREOPERATIVE DIAGNOSIS: Missed . POSTOPERATIVE DIAGNOSIS: Missed . ANESTHESIA: General. SURGEON: Yousif Aparicio D.O. ELECTRICAL PANEL BUILDER: None. BLOOD LOSS: 75 mL. URINE OUTPUT: [...] products of conception were removed using a 10-Tongan suction curette. Excellent hemostasis was noted. The patient tolerated the procedure well. Sponge, lap, and needle counts were correct x 2. All instruments were then removed from the patient's vagina. The patient was taken to the Recovery Room in stable condition. ?? [facility] Note 12-12-2021 Telephone Encounter - December - 12/12/2021 11:16 AM EDT Note Date & Type Note Facility 12-12-2021 Miscellaneous Notes Pleases sign pending new cbc order. Thanks, Angelia Almazan MA documented in this encounter [facility] Progress note 11-08-2021 Note Date & Type Note Facility 11-08-2021 Note HNO ID: [id number] Author: King Suazo MD Service: ? Author [...] shortness of breath, and is seen at [place] emergency room. Labs revealed a hemoglobin of [...] biceps/brachioradial/patella/achilles. MUSCULOSKELETAL: Neg (more content not included)... 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 Advance Directives and Living Will 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 Latest Code Status on File Code [...] section and content) DATE CREATED AUTHOR 03/08/2018 [facility] DATE CREATED AUTHOR AUTHOR'S ORGANIZ ATION 04/08/2020 [facility] DATE CREATED AUTHOR AUTHOR'S ORGANIZ ATION 04/28/2020 [facility] DATE CREATED AUTHOR AUTHOR'S ORGANIZ ATION 12/13/2021 [facility] DATE CREATED AUTHOR AUTHOR'S ORGANIZ ATION 12/25/2022 [facility] DATE CREATED AUTHOR AUTHOR'S CHERIE MARTINEZ 10/10/2023 [facility] EPIC Source Comments (unrecognize d section and content) In the event this informatio n is protected by the Federal Confidentiality of Alcohol and Drug Abuse Patient Records regulations: The Federal rules restrict any use of the information to criminally investigate or prosecute any alcohol or drug abuse patient.[facility] the event this information is protected by the Federal Confidentiality of Alcohol and Drug Abuse Patient Records regulations: The Federal rules restrict any use of the information to criminally investigate or prosecute any alcohol or drug abuse patient.[facility] Reason for Visit (unrecogniz ed section and content) Reason Comments Lab Orders Care Teams (unrecognized sec tion and content) Skiver Blockers Relationship Specialty Start Date End Date oRdo Menchaca [address] [place] [address] PCP - General Family Practice 11/08/21 FOR [...] BE BASED ON THE PRIMARY CLINICAL RECORDS. [facility] [employer] provides no warranty or guarantee of the accuracy or completeness of information in this document.
--- OUTSIDE RECORDS SUMMARY | 2023-10-19 07:55 | XMS_ITS | CCD ---
Author Name Unknown Address [id number] [place] [address] Organization [facility] Care Team Providers Care Custody Officer Name Role Phone ANGELO SPICER Unavailable Unavailable LIGIA SPICEREEP Unavailable Unavailable ROCHELLE WILLAMS Unavailable Unavailable Rochelle Willams Primary Care Provider [phone] Lima Cornell Attending Unavailab le Rochelle Willams Primary Care Provider [phone] KADI SCHROEDER Referring Unavailable ROCHELLE WILLAMS Primary Care Unavailable POOL, GEORGETTE E Referring Unavailable ROCHELLE WILLAMS Primary Care Unavailable POOL, GEORGETTE E Referring Unavailable ROCHELLE WILLAMS Primary Care Unavailable ANTHONY PABON Referring Unavailable ROCHELLE WILLAMS Primary Care Unavailable Unavailable Primary Care Provider UnavailRodo Carson Primary Care Provider [phone] [facility] Primary Care Unavaila ble [...] Unavailable NADERER, DR RODO Dickerson Admitting Unavailable [facility] Primary Care Unavaila ble GRECHNY ., ADELITA ORELLANA Consulting Unavailluis CAMARILLO, MYLES Alex Consulting Unavailable GAYE, GURU Consulting Unavailable ALFREDDOYOSEPH, ALIX Consulting Unavailable LINA, KAMILLA Consulting Unavailable SISTER, DANIELA Consulting Unavailable RBOBY ., DR MENENDEZ Consulting Unavailable [facility] Primary Care Unavaila ble ROBBY ., DR MENENDEZ Attending Unavailable ROBBY ., DR MENENDEZ Admitting Unavailable ELENITA, NGOC Consulting Unavailable GEMBUS, AUGUSTUS Consulting Unavailable [facility] Primary Care Unavaila ble ROBBY ., DR MENENDEZ Consulting Unavailable ROBBY ., DR MENENDEZ Attending Unavailable ROBBY ., DR MENENDEZ Admitting Unavailable ZIEBER, DR CHRISTINE Benites Consulting Unavailable ROBBY ., DR MENENDEZ Consulting Unavailable [facility] Primary Care Unavaila ble ROBBY ., [...] Propensity to adverse reactions to drug (disorder) [facility] Repository Medications Current Medications Medication [...] Onset: 11-05-2017 Other aftercare (1 source) Other correction (current) drug therapy; Translations: [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 Hemanth Kerr CBC AUTO DIFFon 11-29-2022 BASO # 0.0 103/ul Normal 0.0-0.1 [facility] Comment on above: Performed By: #### C BC #### [facility] [address] [place] [address] Dr. Hemanth Kerr Basophils/100 WBC (Bld) 0.7 % Normal 0.2-2.0 [facility] Comment on above: Performed By: #### C BC #### [facility] [address] [place] [address] Dr. Hemanth Kerr EO # 0.2 103/ul Normal 0.0-0.7 [facility] Comment on above: Performed By: #### C BC #### [facility] [address] [place] [address] Dr. Hemanth Kerr Eosinophils/100 WBC (Bld) 3.3 % Normal 0.9-7.0 [facility] Comment on above: Performed By: #### C BC #### [facility] [address] [place] [address] Dr. Hemanth Kerr Erythrocyte distribution width (RBC) [Ratio] 14.3 % Normal 11.0-15.0 [facility] Comment on above: Performed By: #### C BC #### [facility] [address] [place] [address] Dr. Hemanth Kerr Hematocrit (Bld) [Volume fraction] 37.2 % Normal 36.0-48.0 [facility] Comment on above: Performed By: #### C BC #### [facility] [address] [place] [address] Dr. Hemanth Kerr Hemoglobin (Bld) [Mass/Vol] 11.9 g/dL Critically low 12.0-16.0 [facility] Comment on above: Performed By: #### C BC #### [facility] [address] [place] [address] Dr. Hemanth Kerr IG # 0.01 10e3/ul Normal 0.00-0.03 [facility] Comment on above: Performed By: #### C BC #### [facility] [address] [place] [address] Dr. Hemanth Kerr IG % 0.2 % Normal 0.0-0.5 [facility] Comment on above: Performed By: #### C BC #### [facility] [address] [place] [address] Dr. Hemanth Kerr LYMPH # 1.7 103/ul Normal 1.2-3.8 [facility] Comment on above: Performed By: #### C BC #### [facility] [address] [place] [address] Dr. Hemanth Kerr Lymphocytes/100 WBC (Bld) 31.3 % Normal 20.5-60.0 [facility] Comment on above: Performed By: #### C BC #### [facility] [address] [place] [address] Dr. Hemanth Kerr MANUAL DIFF REQ NO Normal [facility] Comment on above: Performed By: #### C BC #### [facility] [address] [place] [address] Dr. Hemanth Kerr MCH (RBC) [Entitic mass] 27.8 pg Normal 26.7-34.0 [facility] Comment on above: Performed By: #### C BC #### [facility] [address] [place] [address] Dr. Hemanth Kerr MCHC (RBC) [Mass/Vol] 32.0 g/dL Normal 29.9-35.2 [facility] Comment on above: Performed By: #### C BC #### [facility] [address] [place] [address] Dr. Hemanth Kerr MCV (RBC) [Entitic vol] 86.9 fL Normal 81.0-99.0 [facility] Comment on above: Performed By: #### C BC #### [facility] [address] [place] [address] Dr. Hemanth Kerr MONO # 0.4 103/ul Normal 0.3-0.8 [facility] Comment on above: Performed By: #### C BC #### [facility] [address] [place] [address] Dr. Hemanth Kerr Monocytes/100 WBC (Bld) 8.0 % Normal 1.7-12.0 [facility] Comment on above: Performed By: #### C BC #### [facility] [address] [address] [address] Hemanth Kerr NEUT # 3.1 103/ul Normal 1.4-6.5 [facility] Comment on above: Performed By: #### C BC #### [facility] [address] [place] [address] Dr. Hemanth Kerr Neutrophils/100 WBC (Bld) 56.5 % Normal 43.0-75.0 [facility] Comment on above: Performed By: #### C BC #### [facility] [address] [place] [address] Dr. Hemanth Kerr Platelet mean volume (Bld) [Entitic vol] 10.3 fL Normal 9.5-13.5 [facility] Comment on above: Performed By: #### C BC #### [facility] [address] [place] [address] Dr. Hemanth Kerr PLT 258 103/ul Normal 150-450 [facility] Comment on above: Performed By: #### C BC #### [facility] [address] [place] [address] Dr. Hemanth Kerr RBC 4.28 106/ul Normal 4.20-5.40 [facility] Comment on above: Performed By: #### C BC #### [facility] [address] [place] [address] Dr. Hemanth Kerr WBC 5.4 103/ul Normal 4.0-11.0 [facility] Comment on above: Performed By: #### C BC #### [facility] [address] [place] [address] Dr. Hemanth Kerr PROF 14(COMP METB)on 023 Albumin [Mass/Vol] 3.1 g/dL Critically low 3.4-5.0 [facility] Comment on above: Performed By: #### C MP #### [facility] [address] [place] [address] Dr. Hemanth Kerr Albumin/Globulin [Mass ratio] 1.3 {ratio} Normal [facility] Comment on above: Performed By: #### C MP #### [facility] [address] [address] [address] Hemanth Kerr ALP [Catalytic activity/Vol] 56 U/L Normal 46-116 [facility] Comment on above: Performed By: #### C MP #### [facility] [address] [address] [address] Hemanth Kerr ALT [Catalytic activity/Vol] 34 U/L Normal 14-59 [facility] Comment on above: Performed By: #### C MP #### [facility] [address] [place] [address] Dr. Hemanth Kerr Anion gap [Moles/Vol] 7.0 mmol/L Normal [facility] Comment on above: Performed By: #### C MP #### [facility] [address] [place] [address] Dr. Hemanth Kerr AST [Catalytic activity/Vol] 29 U/L Normal 15-37 [facility] Comment on above: Performed By: #### C MP #### [facility] [address] [place] [address] Dr. Hemanth Kerr Bilirubin [Mass/Vol] 0.4 mg/dL Normal 0.2-1.0 [facility] Comment on above: Performed By: #### C MP #### [facility] [address] [place] [address] Dr. Hemanth Kerr Calcium [Mass/Vol] 8.3 mg/dL Critically low 8.5-10.1 [facility] Comment on above: Performed By: #### C MP #### [facility] [address] [place] [address] Dr. Hemanth Kerr Chloride [Moles/Vol] 110 mmol/L Critically high 98-107 [facility] Comment on above: Performed By: #### C MP #### [facility] [address] [place] [address] Dr. Hemanth Kerr CO2 [Moles/Vol] 27.6 mmol/L Normal 21.0-32.0 [place] Comment on above: Performed By: #### C MP #### [facility] [address] [place] [address] Dr. Hemanth Kerr Creatinine [Mass/Vol] 0.61 mg/dL Normal 0.55-1.02 [facility] Comment on above: Performed By: #### C MP #### [facility] [address] [place] [address] Dr. Hemanth Kerr EGFR-AF ALGERIAN >60 Normal >=60 [place] Comment on above: Performed By: #### C MP #### [facility] [address] [address] [address] Hemanth Kerr EGFR-NON AF ALGERIAN >60 Normal >=60 [facility] Comment on above: Performed By: #### C MP #### [facility] [address] [place] [address] Dr. Hemanth Kerr Globulin (S) [Mass/Vol] 2.4 g/dL Normal [facility] Comment on above: Performed By: #### C MP #### [facility] [address] [place] [address] Dr. Hemanth Kerr Glucose [Mass/Vol] 110 mg/dL Critically high 74-106 [facility] Comment on above: Performed By: #### C MP #### [facility] [address] [place] [address] Dr. Hemanth Kerr Potassium [Moles/Vol] 2.6 mmol/L Critically low 3.5-5.1 [facility] Comment on above: Performed By: #### C MP #### [facility] [address] [place] [address] Dr. Hemanth Kerr Protein [Mass/Vol] 5.5 g/dL Critically low 6.4-8.2 [facility] Comment on above: Performed By: #### C MP #### [facility] [address] [place] [address] Dr. Hemanth Kerr Sodium [Moles/Vol] 142 mmol/L Normal 136-145 [facility] Comment on above: Performed By: #### C MP #### [facility] [address] [place] [address] Dr. Hemanth Kerr Urea nitrogen [Mass/Vol] 12.0 mg/dL Normal 7.0-18.0 [facility] Comment on above: Performed By: #### C MP #### [facility] [address] [address] [address] Hemanth Kerr Urea nitrogen/Creatinine [Mass ratio] 19.7 mg/mg Normal [facility] Comment on above: Performed By: #### C MP #### [facility] [address] [address] [address] Hemanth Kerr XR HIP LT 2 [...] ALIX GRANADOS Date: 2022-11-28 22:13 Normal [facility] ACETAMINOPHENon 11-28-2022 Acetaminophen [Mass/Vol] ug/mL Critically low 10.0-30.0 [facility] Comment on above: Performed By: #### C MP #### [facility] [address] [address] [address] Hemanth Kerr ACETONE SERUMon 11-28-2022 ACETONE Negative Normal NEGATIVE [facility] Comment on above: Performed By: #### P REG #### [facility] [address] [address] [address] Hemanth Kerr AMMONIAon 11-28-2022 Ammonia (P) [Moles/Vol] 24 umol/L Normal - [facility] Comment on above: Performed By: #### L ACT #### [facility] [address] [address] [address] Hemanth Kerr CBC AUTO DIFFon 11-28-2022 BASO # 0.0 103/ul Normal 0.0-0.1 [facility] Comment on above: Performed By: #### L ACT #### [facility] [address] [address] [address] Hemanth Kerr Basophils/100 WBC (Bld) 0.4 % Normal 0.2-2.0 [facility] Comment on above: Performed By: #### L ACT #### [facility] [address] [place] [address] Dr. Hemanth Kerr EO # 0.3 103/ul Normal 0.0-0.7 [facility] Comment on above: Performed By: #### L ACT #### [facility] [address] [place] [address] Dr. Hemanth Kerr Eosinophils/100 WBC (Bld) 3.1 % Normal 0.9-7.0 [facility] Comment on above: Performed By: #### L ACT #### [facility] [address] [place] [address] Dr. Hemanth Kerr Erythrocyte distribution width (RBC) [Ratio] 14.3 % Normal 11.0-15.0 [facility] Comment on above: Performed By: #### L ACT #### [facility] [address] [place] [address] Dr. Hemanth Kerr Hematocrit (Bld) [Volume fraction] 41.3 % Normal 36.0-48.0 [facility] Comment on above: Performed By: #### L ACT #### [facility] [address] [place] [address] Dr. Hemanth Kerr Hemoglobin (Bld) [Mass/Vol] 13.3 g/dL Normal 12.0-16.0 [facility] Comment on above: Performed By: #### L ACT #### [facility] [address] [place] [address] Dr. Hemanth Kerr IG # 0.02 10e3/ul Normal 0.00-0.03 [facility] Comment on above: Performed By: #### L ACT #### [facility] [address] [place] [address] Dr. Hemanth Kerr IG % 0.2 % Normal 0.0-0.5 [facility] Comment on above: Performed By: #### L ACT #### [facility] [address] [place] [address] Dr. Hemanth Kerr LYMPH # 2.4 103/ul Normal 1.2-3.8 [facility] Comment on above: Performed By: #### L ACT #### [facility] [address] [place] [address] Dr. Hemanth Kerr Lymphocytes/100 WBC (Bld) 26.3 % Normal 20.5-60.0 [facility] Comment on above: Performed By: #### L ACT #### [facility] [address] [place] [address] Dr. Hemanth Kerr MANUAL DIFF REQ NO Normal [facility] Comment on above: Performed By: #### L ACT #### [facility] [address] [place] [address] Dr. Hemanth Kerr MCH (RBC) [Entitic mass] 27.4 pg Normal 26.7-34.0 [facility] Comment on above: Performed By: #### L ACT #### [facility] [address] [place] [address] Dr. Hemanth Kerr MCHC (RBC) [Mass/Vol] 32.2 g/dL Normal 29.9-35.2 [facility] Comment on above: Performed By: #### L ACT #### [facility] [address] [place] [address] Dr. Hemanth Kerr MCV (RBC) [Entitic vol] 85.0 fL Normal 81.0-99.0 [facility] Comment on above: Performed By: #### L ACT #### [facility] [address] [place] [address] Dr. Hemanth Kerr MONO # 0.7 103/ul Normal 0.3-0.8 [facility] Comment on above: Performed By: #### L ACT #### [facility] [address] [place] [address] Dr. Hemanth Kerr Monocytes/100 WBC (Bld) 7.3 % Normal 1.7-12.0 [facility] Comment on above: Performed By: #### L ACT #### [facility] [address] [place] [address] Dr. Hemanth Kerr NEUT # 5.7 103/ul Normal 1.4-6.5 [facility] Comment on above: Performed By: #### L ACT #### [facility] [address] [address] [address] Hemanth Kerr Neutrophils/100 WBC (Bld) 62.7 % Normal 43.0-75.0 [facility] Comment on above: Performed By: #### L ACT #### [facility] [address] [address] [address] Hemanth Kerr Platelet mean volume (Bld) [Entitic vol] 10.6 fL Normal 9.5-13.5 [facility] Comment on above: Performed By: #### L ACT #### [facility] [address] [address] [address] Hemanth Kerr PLT 347 103/ul Normal 150-450 [facility] Comment on above: Performed By: #### L ACT #### [facility] [address] [place] [address] Dr. Hemanth Kerr RBC 4.86 106/ul Normal 4.20-5.40 [facility] Comment on above: Performed By: #### L ACT #### [facility] [address] [place] [address] Dr. Hemanth Kerr WBC 9.1 103/ul Normal 4.0-11.0 [facility] Comment on above: Performed By: #### L ACT #### [facility] [address] [place] [address] CSPINE WO CONon [...] KAMILLA MILLS Date: 2022-11-28 17:54 Normal [facility] CT HEAD WO CONon 11-28-2022 CT [...] KAMILLA MILLS Date: 2022-11-28 18:40 Normal [facility] CULTURE BLOODon 11-28-2022 Microscopic examination of blood, culture Culture Observations: NO GROWTH AT 5 DAYS. Normal [facility] Comment on above: Performed By: #### C BC #### [facility] [address] [place] [address] Dr. Hemanth Kerr Microscopic examination of blood, culture Culture Observations: NO GROWTH AT 5 DAYS. Normal [facility] Comment on above: Performed By: #### B [id number] #### [facility] [address] [place] [address] Dr. Hemanth Kerr [facility] SARS-CoV-2 (COVID-19) RNA ELMO+probe Ql (Unsp spec) Not detected Normal NOT DETECTED [facility] Comment on above: Result Comment: When [...] for this test is supported by the News Librarian of Health and Human Service's declaration that [...] used). Performed By: #### L ACT #### [facility] [address] [place] [address] Dr. Hemanth Kerr DRUG SCREEN RAPID (URINE)on 11-28-2022 AMP Positive Abnormal NEGATIVE [facility] Comment on above: Performed By: #### P REG #### [facility] [address] [place] [address] Dr. Hemanth Kerr BAR Negative Normal NEGATIVE [facility] Comment on above: Performed By: #### P REG #### [facility] [address] [place] [address] Dr. Hemanth Kerr BUP Negative Normal NEGATIVE [facility] Comment on above: Performed By: #### P REG #### [facility] [address] [place] [address] Dr. Hemanth Kerr BZO Negative Normal NEGATIVE [facility] Comment on above: Performed By: #### P REG #### [facility] [address] [place] [address] Dr. Hemanth Kerr YOLANDA Negative Normal NEGATIVE [facility] Comment on above: Performed By: #### P REG #### [facility] [address] [place] [address] Dr. Hemanth Kerr CUT-OFFS SEE BELOW Normal [facility] Comment on above: Result Comment: AMP [...] ng/mL Performed By: #### P REG #### [facility] [address] [place] [address] Dr. Hemanth Kerr DRUG CUT HEADER DRUG CLASS TEST SYSTEM CUT-OFF CONCENTRATIONS ARE FOLLOWS: Normal [facility] Comment on above: Performed By: #### P REG #### [facility] [address] [place] [address] Dr. Hemanth Kerr mAMP Positive Abnormal NEGATIVE [facility] Comment on above: Performed By: #### P REG #### [facility] [address] [place] [address] Dr. Hemanth Kerr MTD Negative Normal NEGATIVE [facility] Comment on above: Performed By: #### P REG #### [facility] [address] [place] [address] Dr. Hemanth Kerr OPI Negative Normal NEGATIVE [facility] Comment on above: Performed By: #### P REG #### [facility] [address] [place] [address] Dr. Hemanth Kerr OXY Negative Normal NEGATIVE [facility] Comment on above: Performed By: #### P REG #### [facility] [address] [place] [address] Dr. Hemanth Kerr PCP Negative Normal NEGATIVE [facility] Comment on above: Performed By: #### P REG #### [facility] [address] [place] [address] Dr. Hemanth Kerr PPX Negative Normal NEGATIVE [facility] Comment on above: Performed By: #### P REG #### [facility] [address] [place] [address] Dr. Hemanth Kerr TCA Negative Normal NEGATIVE [facility] Comment on above: Performed By: #### P REG #### [facility] [address] [place] [address] Dr. Hemanth Kerr THC Negative Normal NEGATIVE [facility] Comment on above: Performed By: #### P REG #### [facility] [address] [place] [address] Dr. Hemanth Kerr ER URINE PROFILEon 3 Bilirubin Ql (U) Negative Normal NEGATIVE [place] Comment on above: Performed By: #### P REG #### [facility] Laboratory [address] [place] [address] Dr. Hemanth Kerr Clarity (U) CLEAR Normal CLEAR [facility] Comment on above: Performed By: #### P REG #### [facility] Laboratory [address] [place] [address] Dr. Hemanth Kerr Color (U) LT. YELLOW Normal YELLOW [facility] Comment on above: Performed By: #### P REG #### [facility] Laboratory [address] [place] [address] Dr. Hemanth Kerr ERUAHD A micrscopic examination will be performed if indicated. Normal [facility] Comment on above: Performed By: #### P REG #### [facility] Laboratory [address] [place] [address] Dr. Hemanth Kerr Glucose Ql (U) Negative Normal NEGATIVE [facility] Comment on above: Performed By: #### P REG #### [facility] Laboratory [address] [place] [address] Dr. Hemanth Kerr Hemoglobin Ql (U) Negative Normal NEGATIVE [facility] Comment on above: Performed By: #### P REG #### [facility] Laboratory [address] [place] [address] Dr. Hemanth Kerr Ketones Ql (U) Negative Normal NEGATIVE [facility] Comment on above: Performed By: #### P REG #### [facility] Laboratory [address] [place] [address] Dr. Hemanth Kerr LEUKOCYTES Negative Normal NEGATIVE [facility] Comment on above: Performed By: #### P REG #### [facility] Laboratory [address] [place] [address] Dr. Hemanth Kerr Nitrite Ql (U) Positive Abnormal NEGATIVE [facility] Comment on above: Performed By: #### P REG #### [facility] Laboratory [address] [place] [address] Dr. Hemanth Kerr pH (U) 7.5 [pH] Normal 5-9 [facility] Comment on above: Performed By: #### P REG #### [facility] Laboratory [address] [place] [address] Dr. Hemanth Kerr SPEC GRAVITY 1.020 Normal 1.005-<=1.025 [facility] Comment on above: Performed By: #### P REG #### [facility] Laboratory [address] [place] [address] Dr. Hemanth Kerr UA PROTEIN TRACE Normal NEGATIVE/ TRACE [facility] Comment on above: Performed By: #### P REG #### [facility] Laboratory [address] [place] [address] Dr. Hemanth Kerr UR MICRO IND INDICATED Normal [facility] Comment on above: Performed By: #### P REG #### [facility] Laboratory [address] [place] [address] Dr. Hemanth Kerr Urobilinogen Qn (U) 1.0 {Jose'U}/dL Normal 0.2 - 1. 0 [facility] Comment on above: Performed By: #### P REG #### [facility] Laboratory [address] [place] [address] Dr. Hemanth Kerr ETHANOL (BLD ALC)on 11-29-19 ALC NOTE NOTE: 80 mg/dl is th e legal limit for a blood alcohol level Normal [facility] Comment on above: Performed By: #### C MP #### [facility] Laboratory [address] [place] [address] Dr. Hemanth Kerr Ethanol [Mass/Vol] mg/dL Normal [facility] Comment on above: Performed By: #### C MP #### [facility] Laboratory [address] [place] [address] Dr. Hemanth Kerr LACTATE/LACTIC ACIDon 2022 Lactate [Moles/Vol] 0.7 mmol/L Normal 0.4-2.0 [facility] Comment on above: Performed By: #### L ACT #### [facility] Laboratory [address] [address] [address] Hemanth Kerr Lactate [Moles/Vol] 9.0 mmol/L Critically high 0.4-2.0 [facility] Comment on above: Performed By: #### L ACT #### [facility] Laboratory [address] [address] [address] Hemanth Kerr PH VENOUS BLOODon 11-28-2022 PCO2 VENOUS 36.6 mmHg Critically low 40.0-52.0 [facility] Comment on above: Performed By: #### P HVEN #### [facility] Laboratory [address] [place] [address] Dr. Hemanth Kerr pH VENOUS 7.354 Normal 7.330-7.430 [facility] Comment on above: Performed By: #### P HVEN #### [facility] Laboratory [address] [address] [address] Hemanth Kerr POINT OF CARE GLUCOSEon 11-15 Glucose [Mass/Vol] 127 mg/dL Critically high 74-106 [facility] Comment on above: Performed By: #### C BC #### [facility] Laboratory [address] [place] [address] Dr. Hemanth Kerr PREG HCG QUALon 11-28-2022 , QUAL Negative Normal NEGATIVE [facility] Comment on above: Performed By: #### P REG #### [facility] Laboratory [address] [place] [address] Dr. Hemanth Kerr PROF 14(COMP METB)on 023 Albumin [Mass/Vol] 3.7 g/dL Normal 3.4-5.0 [facility] Comment on above: Performed By: #### L ACT #### [facility] Laboratory [address] [place] [address] Dr. Hemanth Kerr Albumin/Globulin [Mass ratio] 1.3 {ratio} Normal [facility] Comment on above: Performed By: #### L ACT #### [facility] Laboratory [address] [address] [address] Hemanth Kerr ALP [Catalytic activity/Vol] 72 U/L Normal 46-116 [facility] Comment on above: Performed By: #### L ACT #### [facility] Laboratory [address] [address] [address] Hemanth Kerr ALT [Catalytic activity/Vol] 42 U/L Normal 14-59 [facility] Comment on above: Performed By: #### L ACT #### [facility] Laboratory [address] [address] [address] Hemanth Kerr Anion gap [Moles/Vol] 16.3 mmol/L Normal [facility] Comment on above: Performed By: #### L ACT #### [facility] Laboratory [address] [place] [address] Dr. Hemanth Kerr AST [Catalytic activity/Vol] 45 U/L Critically high 15-37 [facility] Comment on above: Performed By: #### L ACT #### [facility] Laboratory [address] [place] [address] Dr. Hemanth Kerr Bilirubin [Mass/Vol] 0.4 mg/dL Normal 0.2-1.0 [facility] Comment on above: Performed By: #### L ACT #### [facility] Laboratory [address] [place] [address] Dr. Hemanth Kerr Calcium [Mass/Vol] 8.8 mg/dL Normal 8.5-10.1 [facility] Comment on above: Performed By: #### L ACT #### [facility] Laboratory [address] [address] [address] Hemanth Kerr Chloride [Moles/Vol] 107 mmol/L Normal 98-107 [facility] Comment on above: Performed By: #### L ACT #### [facility] Laboratory [address] [place] [address] Dr. Hemanth Kerr CO2 [Moles/Vol] 21.8 mmol/L Normal 21.0-32.0 [place] Comment on above: Performed By: #### L ACT #### [facility] Laboratory [id number] Hemanth Kerr Creatinine [Mass/Vol] 1.32 mg/dL Critically high 0.55-1.02 [facility] Comment on above: Performed By: #### L ACT #### [facility] Laboratory [address] [address] [address] Hemanth Kerr EGFR-AF ALGERIAN 58 mL/min/1.73m2 Critically low >=60 [facility] Comment on above: Performed By: #### L ACT #### [facility] Laboratory [address] [address] [address] Hemanth Kerr EGFR-NON AF ALGERIAN 48 mL/min/1.73m2 Critically low >=60 [facility] Comment on above: Performed By: #### L ACT #### [facility] Laboratory [address] [address] [address] Hemanth Kerr Globulin (S) [Mass/Vol] 2.9 g/dL Normal [facility] Comment on above: Performed By: #### L ACT #### [facility] Laboratory [address] [address] [address] Hemanth Kerr Glucose [Mass/Vol] 143 mg/dL Critically high 74-106 [facility] Comment on above: Performed By: #### L ACT #### [facility] Laboratory [address] [address] [address] Hemanth Kerr Potassium [Moles/Vol] 3.1 mmol/L Critically low 3.5-5.1 [facility] Comment on above: Performed By: #### L ACT #### [facility] Laboratory [address] [address] [address] Hemanth Kerr Protein [Mass/Vol] 6.6 g/dL Normal 6.4-8.2 [facility] Comment on above: Performed By: #### L ACT #### [facility] Laboratory [id number] Hemanth Kerr Sodium [Moles/Vol] 142 mmol/L Normal 136-145 [facility] Comment on above: Performed By: #### L ACT #### [facility] Laboratory [address] [place] [address] Dr. Hemanth Kerr Urea nitrogen [Mass/Vol] 17.0 mg/dL Normal 7.0-18.0 [facility] Comment on above: Performed By: #### L ACT #### [facility] Laboratory [address] [place] [address] Dr. Hemanth Kerr Urea nitrogen/Creatinine [Mass ratio] 12.9 mg/mg Normal [facility] Comment on above: Performed By: #### L ACT #### [facility] Laboratory [address] [place] [address] Dr. Hemanth Kerr PROTIMEon 11-28-2022 INR Coag (PPP) [Relative time] 0.97 {INR} Normal [facility] Comment on above: Performed By: #### P T, PTT #### [facility] Laboratory [address] [place] [address] Dr. Hemanth Kerr INR GUIDELINES SEE BELOW Normal [facility] Comment on above: Result Comment: CHAN RED INR: 2.0 - 3.0 CONDITIONS NOT LISTED BELOW 2.5 - 3.5 FOR PROSTHETIC HEART VALVE REPLACEMENT 2.5 - 3.5 RECURRENT THROMBOSIS Performed By: #### P T, PTT #### [facility] Laboratory [address] [place] [address] Dr. Hemanth Kerr PT Coag (PPP) [Time] 10.3 s Normal 9.0-11.6 [facility] Comment on above: Performed By: #### P T, PTT #### [facility] Laboratory [address] [place] [address] Dr. Hemanth Kerr PTTon 11-28-2022 aPTT Coag (Bld) [Time] 25.4 s Normal 22.3-36.2 [facility] Comment on above: Performed By: #### P T, PTT #### [facility] Laboratory [address] [place] [address] Dr. Hemanth Kerr SALICYLATEon 11-28-2022 SALICYLATE <2.8 Normal <=19.9 [facility] Comment on above: Performed By: #### C MP #### [facility] Laboratory [address] [place] [address] Dr. Hemanth Kerr TROPONIN, HIGH SENSITIVITYon 11-28-2022 HSTROP 4.2 pg/mL Normal 4.0-51.3 [facility] Comment on above: Result Comment: CUT- OFF POINTS HAVE BEEN ESTABLISHED BASED ON THE FOURTH UNIVERSAL DEFINITIONS OF MYOCARDIAL INFARCTION. THE UPPER REFERENCE LIMIT (URL) OF TROPONIN, DEFINED THE 99TH PERCENTILE OF cTnI DISTRIBUTION IN A REFERENCE POPULATION, HAS BEEN CONFIRMED THE DECISION THRESHOLD FOR PA DIAGNOSIS. Performed By: #### C MP #### [facility] Laboratory [address] [place] [address] Dr. Hemanth Kerr TSHon 11-28-2022 TSH 3.476 uIU/mL Normal 0.358-3.740 [facility] Comment on above: Performed By: #### L ACT #### [facility] Laboratory [address] [place] [address] Dr. Hemanth Kerr URINE MICROSCOPIC ONLYon BACTERIA LARGE Abnormal NONE SEEN [facility] Comment on above: Performed By: #### P REG #### [facility] Laboratory [address] [place] [address] Dr. Hemanth Kerr Bacteria identified Cx Nom (U) INDICATED Normal [facility] Comment on above: Performed By: #### P REG #### [facility] Laboratory [address] [place] [address] Dr. Hemanth Kerr CAST SEEN Abnormal NONE SEEN [facility] Comment on above: Performed By: #### P REG #### [facility] Laboratory [address] [place] [address] Dr. Hemanth Kerr COARSE GRANULAR CAST RARE Normal [facility] Comment on above: Performed By: #### P REG #### [facility] Laboratory [address] [place] [address] Dr. Hemanth Kerr Crystals LM Nom (Urine sed) NONE SEEN Normal NONE SEEN [facility] Comment on above: Performed By: #### P REG #### [facility] Laboratory [address] [place] [address] Dr. Hemanth Kerr Epithelial cells LM Ql (Urine sed) RARE Normal NONE SEEN /RARE [facility] Comment on above: Performed By: #### P REG #### [facility] Laboratory [address] [address] [address] Hemanth Kerr MUCOUS NONE SEEN Normal NONE SEEN [facility] Comment on above: Performed By: #### P REG #### [facility] Laboratory [address] [address] [address] Hemanth Kerr RBC 0-2 Normal 0-2 [facility] Comment on above: Performed By: #### P REG #### [facility] Laboratory [address] [place] [address] Dr. Hemanth Kerr WBC 2-5 Abnormal NONE SEEN [facility] Comment on above: Performed By: #### P REG #### [facility] Laboratory [address] [address] [address] Hemanth Kerr XR CHEST 1 Von [...] by: KAMILLA MILLS Date: 2022-11-28 17:39 Normal [facility] CULTURE URINEon 10-13-2022 CULTURE URINE Isolate [...] Trimethoprim/Sulfamet hoxazole >=320 R F Normal The [facility] Comment on above: Performed By: #### U RCX #### [facility] Laboratory [address] [address] [address] Hemanth Kerr CBC AUTO DIFFon 10-11-2022 BASO # 0.0 103/ul Normal 0.0-0.1 [facility] Comment on above: Performed By: #### C BC #### [facility] Laboratory [address] [address] [address] Hemanth Kerr Basophils/100 WBC (Bld) 0.3 % Normal 0.2-2.0 [facility] Comment on above: Performed By: #### C BC #### [facility] Laboratory [address] [place] [address] Dr. Hemanth Kerr EO # 0.0 103/ul Normal 0.0-0.7 [facility] Comment on above: Performed By: #### C BC #### [facility] Laboratory [address] [place] [address] Dr. Hemanth Kerr Eosinophils/100 WBC (Bld) 0.4 % Critically low 0.9-7.0 [facility] Comment on above: Performed By: #### C BC #### [facility] Laboratory [address] [place] [address] Dr. Hemanth Kerr Erythrocyte distribution width (RBC) [Ratio] 12.2 % Normal 11.0-15.0 [facility] Comment on above: Performed By: #### C BC #### [facility] Laboratory [address] [place] [address] Dr. Hemanth Kerr Hematocrit (Bld) [Volume fraction] 38.6 % Normal 36.0-48.0 [facility] Comment on above: Performed By: #### C BC #### [facility] Laboratory [address] [place] [address] Dr. Hemanth Kerr Hemoglobin (Bld) [Mass/Vol] 12.0 g/dL Normal 12.0-16.0 [facility] Comment on above: Performed By: #### C BC #### [facility] Laboratory [address] [place] [address] Dr. Hemanth Kerr IG # 0.07 10e3/ul Critically high 0.00-0.03 [facility] Comment on above: Performed By: #### C BC #### [facility] Laboratory [address] [address] [address] Hemanth Kerr IG % 0.7 % Critically high 0.0-0.5 [facility] Comment on above: Performed By: #### C BC #### [facility] Laboratory [address] [place] [address] Dr. Hemanth Kerr LYMPH # 1.2 103/ul Normal 1.2-3.8 [facility] Comment on above: Performed By: #### C BC #### [facility] Laboratory [address] [place] [address] Dr. Hemanth Kerr Lymphocytes/100 WBC (Bld) 12.1 % Critically low 20.5-60.0 [facility] Comment on above: Performed By: #### C BC #### [facility] Laboratory [address] [place] [address] Dr. Hemanth Kerr MANUAL DIFF REQ NO Normal [facility] Comment on above: Performed By: #### C BC #### [facility] Laboratory [address] [place] [address] Dr. Hemanth Kerr MCH (RBC) [Entitic mass] 28.0 pg Normal 26.7-34.0 [facility] Comment on above: Performed By: #### C BC #### [facility] Laboratory [address] [place] [address] Dr. Hemanth Kerr MCHC (RBC) [Mass/Vol] 31.1 g/dL Normal 29.9-35.2 [facility] Comment on above: Performed By: #### C BC #### [facility] Laboratory [address] [place] [address] Dr. Hemanth Kerr MCV (RBC) [Entitic vol] 90.2 fL Normal 81.0-99.0 [facility] Comment on above: Performed By: #### C BC #### [facility] Laboratory [address] [place] [address] Dr. Hemanth Kerr MONO # 0.7 103/ul Normal 0.3-0.8 [facility] Comment on above: Performed By: #### C BC #### [facility] Laboratory [address] [address] [address] Hemanth Kerr Monocytes/100 WBC (Bld) 6.9 % Normal 1.7-12.0 [facility] Comment on above: Performed By: #### C BC #### [facility] Laboratory [address] [address] [address] Hemanth Kerr NEUT # 8.1 103/ul Critically high 1.4-6.5 [facility] Comment on above: Performed By: #### C BC #### [facility] [address] [address] [address] Hemanth Kerr Neutrophils/100 WBC (Bld) 79.6 % Critically high 43.0-75.0 [facility] Comment on above: Performed By: #### C BC #### [facility] Laboratory [address] [place] [address] Dr. Hemanth Kerr Platelet mean volume (Bld) [Entitic vol] 10.8 fL Normal 9.5-13.5 [facility] Comment on above: Performed By: #### C BC #### [facility] [address] [address] [address] Hemanth Kerr PLT 452 103/ul Critically high 150-450 [facility] Comment on above: Performed By: #### C BC #### [facility] Laboratory [address] [place] [address] Dr. Hemanth Kerr RBC 4.28 106/ul Normal 4.20-5.40 [facility] Comment on above: Performed By: #### C BC #### [facility] Laboratory [address] [address] [address] Hemanth Kerr WBC 10.1 103/ul Normal 4.0-11.0 [facility] Comment on above: Performed By: #### C BC #### [facility] Laboratory [address] [place] [address] ABD/PELVIS WO CONon [...] CHRISTINE SÁNCHEZ Date: 2022-10-11 14:45 Normal [facility] ER URINE PROFILEon 3 Bilirubin Ql (U) Negative Normal NEGATIVE [facility] Comment on above: Performed By: #### L ACT #### [facility] Laboratory [address] [place] [address] Dr. Hemanth Kerr Clarity (U) CLEAR Normal CLEAR [facility] Comment on above: Performed By: #### L ACT #### [facility] Laboratory [address] [address] [address] Hemanth Kerr Color (U) LT. YELLOW Normal YELLOW [facility] Comment on above: Performed By: #### L ACT #### [facility] Laboratory [address] [address] [address] Hemanth Kerr ERUAHD A micrscopic examination will be performed if indicated. Normal [facility] Comment on above: Performed By: #### L ACT #### [facility] Laboratory [address] [address] [address] Hemanth Kerr Glucose Ql (U) Negative Normal NEGATIVE [facility] Comment on above: Performed By: #### L ACT #### [facility] Laboratory [address] [address] [address] Hemanth Kerr Hemoglobin Ql (U) LARGE Abnormal NEGATIVE [facility] Comment on above: Performed By: #### L ACT #### [facility] [address] [address] [address] Hemanth Kerr Ketones Ql (U) Negative Normal NEGATIVE [facility] Comment on above: Performed By: #### L ACT #### [facility] Laboratory [address] [place] [address] Dr. Hemanth Kerr LEUKOCYTES SMALL Abnormal NEGATIVE [facility] Comment on above: Performed By: #### L ACT #### [facility] Laboratory [address] [place] [address] Dr. Hemanth Kerr Nitrite Ql (U) Negative Normal NEGATIVE [facility] Comment on above: Performed By: #### L ACT #### [facility] Laboratory [address] [address] [address] Hemanth Kerr pH (U) 6.5 [pH] Normal 5-9 [facility] Comment on above: Performed By: #### L ACT #### [facility] Laboratory [address] [address] [address] Hemanth Kerr Protein (U) [Mass/Vol] 30 mg/dL Abnormal NEGATIVE/ TRACE [facility] Comment on above: Performed By: #### L ACT #### [facility] Laboratory [address] [place] [address] Dr. Hemanth Kerr SPEC GRAVITY <=1.005 Abnormal 1.005-<=1.025 [facility] Comment on above: Performed By: #### L ACT #### [facility] Laboratory [address] [address] [address] Hemanth Kerr UR MICRO IND INDICATED Normal [facility] Comment on above: Performed By: #### L ACT #### [facility] [address] [address] [address] Hemanth Kerr Urobilinogen Qn (U) 1.0 {Jose'U}/dL Normal 0.2 - 1. 0 [facility] Comment on above: Performed By: #### L ACT #### [facility] [address] [address] [address] Hemanth Kerr PREG HCG QUALon 10-11-2022 , QUAL Negative Normal NEGATIVE [facility] Comment on above: Performed By: #### P REG #### [facility] Laboratory [address] [address] [address] Hemanth Kerr PROF CHEM 8 (BAS METB)on Anion gap [Moles/Vol] 9.4 mmol/L Normal [facility] Comment on above: Performed By: #### L ACT #### [facility] [address] [address] [address] Hemanth Kerr Calcium [Mass/Vol] 8.8 mg/dL Normal 8.5-10.1 [facility] Comment on above: Performed By: #### L ACT #### [facility] [address] [address] [address] Hemanth Kerr Chloride [Moles/Vol] 97 mmol/L Critically low 98-107 [facility] Comment on above: Performed By: #### L ACT #### [facility] [address] [address] [address] Hemanth Kerr CO2 [Moles/Vol] 32.4 mmol/L Critically high 21.0-32.0 [facility] Comment on above: Performed By: #### L ACT #### [facility] [address] [address] [address] Hemanth Kerr Creatinine [Mass/Vol] 0.65 mg/dL Normal 0.55-1.02 [facility] Comment on above: Performed By: #### L ACT #### [facility] [address] [address] [address] Hemanth Kerr EGFR-AF ALGERIAN >60 Normal >=60 [place] Comment on above: Performed By: #### L ACT #### [facility] [address] [place] [address] Dr. Hemanth Kerr EGFR-NON AF ALGERIAN >60 Normal >=60 [facility] Comment on above: Performed By: #### L ACT #### [facility] [address] [address] [address] Hemanth Kerr Glucose [Mass/Vol] 117 mg/dL Critically high 74-106 [facility] Comment on above: Performed By: #### L ACT #### [facility] [address] [place] [address] Dr. Hemanth Kerr Potassium [Moles/Vol] 2.8 mmol/L Critically low 3.5-5.1 [facility] Comment on above: Performed By: #### L ACT #### [facility] [address] [place] [address] Dr. Hemanth Kerr Sodium [Moles/Vol] 135 mmol/L Critically low 136-145 [facility] Comment on above: Performed By: #### L ACT #### [facility] [address] [place] [address] Dr. Hemanth Kerr Urea nitrogen [Mass/Vol] 8.0 mg/dL Normal 7.0-18.0 [facility] Comment on above: Performed By: #### L ACT #### [facility] [address] [place] [address] Dr. Hemanth Kerr Urea nitrogen/Creatinine [Mass ratio] 12.3 mg/mg Normal [facility] Comment on above: Performed By: #### L ACT #### [facility] [address] [place] [address] Dr. Hemanth Kerr URINE MICROSCOPIC ONLYon BACTERIA SMALL Abnormal NONE SEEN [facility] Comment on above: Performed By: #### L ACT #### [facility] [address] [place] [address] Dr. Hemanth Kerr Bacteria identified Cx Nom (U) INDICATED Normal [facility] Comment on above: Performed By: #### L ACT #### [facility] [address] [place] [address] Dr. Hemanth Kerr CAST NONE SEEN Normal NONE SEEN [facility] Comment on above: Performed By: #### L ACT #### [facility] [address] [place] [address] Dr. Hemanth Kerr Crystals LM Nom (Urine sed) NONE SEEN Normal NONE SEEN [facility] Comment on above: Performed By: #### L ACT #### [facility] [address] [place] [address] Dr. Hemanth Kerr Epithelial cells LM Ql (Urine sed) FEW Abnormal NONE SEEN /RARE [facility] Comment on above: Performed By: #### L ACT #### [facility] [address] [place] [address] Dr. Hemanth Kerr MUCOUS NONE SEEN Normal NONE SEEN [facility] Comment on above: Performed By: #### L ACT #### [facility] [address] [place] [address] Dr. Hemanth Kerr RBC 0-2 Normal 0-2 [facility] Comment on above: Performed By: #### L ACT #### [facility] [address] [place] [address] Dr. Hemanth Kerr WBC 10-20 Abnormal NONE SEEN [facility] Comment on above: Performed By: #### L ACT #### [facility] [address] [place] [address] Dr. Hemanth Kerr PREG QUANT HCGon 09-12-2022 HCG QUANT 66 mIU/mL Normal [facility] Comment on above: Performed By: #### C MP #### [facility] [address] [place] [address] Dr. Hemanth Kerr HCG RANGE SEE BELOW Normal [facility] Comment on above: Result Comment: 5-50 0.2-1 WEEK 50-500 1-2 WEEKS 100-5,000 2-3 WEEKS 500-10,000 3-4 WEEKS 1,000-50,000 4-5 WEEKS 10,000-100,000 5-6 WEEKS 15,000-200,000 6-8 WEEKS 10,000-100,000 2-3 MONTHS Performed By: #### C MP #### [facility] [address] [place] [address] Dr. Hemanth Kerr CBC AUTO DIFFon 11-30-2022 BASO # 0.0 103/ul Normal 0.0-0.1 [facility] Comment on above: Performed By: #### L ACT #### [facility] [address] [address] [address] Hemanth Kerr Basophils/100 WBC (Bld) 0.6 % Normal 0.2-2.0 [facility] Comment on above: Performed By: #### L ACT #### [facility] [address] [address] [address] Hemanth Kerr EO # 0.1 103/ul Normal 0.0-0.7 [facility] Comment on above: Performed By: #### L ACT #### [facility] [address] [place] [address] Dr. Hemanth Kerr Eosinophils/100 WBC (Bld) 1.3 % Normal 0.9-7.0 [facility] Comment on above: Performed By: #### L ACT #### [facility] [address] [place] [address] Dr. Hemanth Kerr Erythrocyte distribution width (RBC) [Ratio] 12.0 % Normal 11.0-15.0 [facility] Comment on above: Performed By: #### L ACT #### [facility] [address] [place] [address] Dr. Hemanth Kerr Hematocrit (Bld) [Volume fraction] 35.6 % Critically low 36.0-48.0 [facility] Comment on above: Performed By: #### L ACT #### [facility] [address] [place] [address] Dr. Hemanth Kerr Hemoglobin (Bld) [Mass/Vol] 12.4 g/dL Normal 12.0-16.0 [facility] Comment on above: Performed By: #### L ACT #### [facility] [address] [place] [address] Dr. Hemanth Kerr IG # 0.02 10e3/ul Normal 0.00-0.03 [facility] Comment on above: Performed By: #### L ACT #### [facility] [address] [place] [address] Dr. Hemanth Kerr IG % 0.3 % Normal 0.0-0.5 [facility] Comment on above: Performed By: #### L ACT #### [facility] [address] [place] [address] Dr. Hemanth Kerr LYMPH # 1.9 103/ul Normal 1.2-3.8 [facility] Comment on above: Performed By: #### L ACT #### [facility] [address] [place] [address] Dr. Hemanth Kerr Lymphocytes/100 WBC (Bld) 27.5 % Normal 20.5-60.0 [facility] Comment on above: Performed By: #### L ACT #### [facility] [address] [place] [address] Dr. Hemanth Kerr MANUAL DIFF REQ NO Normal [facility] Comment on above: Performed By: #### L ACT #### [facility] [address] [place] [address] Dr. Hemanth Kerr MCH (RBC) [Entitic mass] 29.6 pg Normal 26.7-34.0 [facility] Comment on above: Performed By: #### L ACT #### [facility] [address] [place] [address] Dr. Hemanth Kerr MCHC (RBC) [Mass/Vol] 34.8 g/dL Normal 29.9-35.2 [facility] Comment on above: Performed By: #### L ACT #### [facility] [address] [place] [address] Dr. Hemanth Kerr MCV (RBC) [Entitic vol] 85.0 fL Normal 81.0-99.0 [facility] Comment on above: Performed By: #### L ACT #### [facility] [address] [place] [address] Dr. Hemanth Kerr MONO # 0.4 103/ul Normal 0.3-0.8 [facility] Comment on above: Performed By: #### L ACT #### [facility] [address] [place] [address] Dr. Hemanth Kerr Monocytes/100 WBC (Bld) 6.3 % Normal 1.7-12.0 [facility] Comment on above: Performed By: #### L ACT #### [facility] [address] [place] [address] Dr. Hemanth Kerr NEUT # 4.5 103/ul Normal 1.4-6.5 [facility] Comment on above: Performed By: #### L ACT #### [facility] [address] [place] [address] Dr. Hemanth Kerr Neutrophils/100 WBC (Bld) 64.0 % Normal 43.0-75.0 [facility] Comment on above: Performed By: #### L ACT #### [facility] [address] [place] [address] Dr. Hemanth Kerr Platelet mean volume (Bld) [Entitic vol] 10.6 fL Normal 9.5-13.5 [facility] Comment on above: Performed By: #### L ACT #### [facility] [address] [place] [address] Dr. Hemanth Kerr PLT 247 103/ul Normal 150-450 [facility] Comment on above: Performed By: #### L ACT #### [facility] [address] [place] [address] Dr. Hemanth Kerr RBC 4.19 106/ul Critically low 4.20-5.40 [facility] Comment on above: Performed By: #### L ACT #### [facility] [address] [place] [address] Dr. Hemanth Kerr WBC 7.0 103/ul Normal 4.0-11.0 [facility] Comment on above: Performed By: #### L ACT #### [facility] [address] [place] [address] Dr. Hemanth Kerr Covid-19 PCR ([facility])on 07-20 SARS-CoV-2 (COVID-19) RNA ELMO+probe Ql (Unsp spec) Not detected Normal NOT DETECTED [facility] Comment on above: Result Comment: This test is not yet approved or cleared by the [place] FDA. When there are no FDA-approved or cleared tests available, and other criteria are met, FDA can make tests available under an emergency access mechanism called an Emergency Use Authorization (EUA). The EUA for this test is supported by the [place] of Health and Human Service's (HHS's) [...] SARS-CoV-2. Performed By: #### C MP #### [facility] [address] [place] [address] Dr. Hemanth Kerr PREG QUANT HCGon 08-16-2022 HCG QUANT 56033 mIU/mL Normal [facility] Comment on above: Performed By: #### P REG #### [facility] [address] [place] [address] Dr. Hemanth Kerr HCG RANGE SEE BELOW Normal [facility] Comment on above: Result Comment: 5-50 0.2-1 WEEK 50-500 1-2 WEEKS 100-5,000 2-3 WEEKS 500-10,000 3-4 WEEKS 1,000-50,000 4-5 WEEKS 10,000-100,000 5-6 WEEKS 15,000-200,000 6-8 WEEKS 10,000-100,000 2-3 MONTHS Performed By: #### P REG #### [facility] [address] [place] [address] Dr. Hemanth Kerr PREG QUANT HCGon 08-14-2022 HCG QUANT 16253 mIU/mL Normal [facility] Comment on above: Performed By: #### P REG #### [facility] [address] [place] [address] Dr. Hemanth Kerr HCG RANGE SEE BELOW Normal [facility] Comment on above: Result Comment: 5-50 0.2-1 WEEK 50-500 1-2 WEEKS 100-5,000 2-3 WEEKS 500-10,000 3-4 WEEKS 1,000-50,000 4-5 WEEKS 10,000-100,000 5-6 WEEKS 15,000-200,000 6-8 WEEKS 10,000-100,000 2-3 MONTHS Performed By: #### P REG #### [facility] [address] [address] [address] Hemanth Kerr US PREG TVon 08-14-2022 [...] by: CHRISTINE SÁNCHEZ Date: 2022-08-14 16:22 Normal [facility] US PREG TVon 07-27-2022 US PREG [...] by: CHRISTINE SÁNCHEZ Date: 2022-07-27 17:04 Normal [facility] XR CHEST 1 Von 07-09-2022 XR [...] by: FELIX WEBB Date: 2022-07-09 12:06 Normal [facility] 12-12-2021 [facility] Telephone (GaleneaASA) NOE ERVIN ([id number]) 1995 F Date Time Provider Department 12/12/21 [...] [D50.9] Order(s):CBC + DIFF [SQCBCDIF] Order #: [id number] FUTURE Prescriptions as of 12/12/2021 - gabapentin [...] by JASMIN SILVERIO on 12/12/21 Normal [facility] 11-10-2021 [facility] Telephone (GaleneaASA) NOE ERVIN ([id number]) 1995 F Date Time Provider Department 11/10/21 [...] B12 is slightly low. Options would be [id number] B12 tablets 2 mg daily or start [...] by JENNYFER DE LA O on 11/10/21 [facility] CNOVSPon 11-08-2021 CNOVSP Visit (SP) Office (HEMASA) NOE ERVIN ([id number]) 1995 F Date Time Provider Department 11/08/21 [...] shortness of breath, and is seen at [place] emergency room. Labs revealed a hemoglobin of [...] changes, r (more content not included)... Normal [facility] Comp Metabolic Panelon 11-08 Albumin [Mass/Vol] 3.6 g/dL Low 3.9-4.9 [facility] Comment on above: Performed By: #### S ERFOL, IRON, B12, FERR #### [facility] [address], [place] [address] ALP [Catalytic activity/Vol] 79 U/L Normal 34-123 [facility] Comment on above: Performed By: #### S ERFOL, IRON, B12, FERR #### [facility] [address] [place], [place] [address] ALT [Catalytic activity/Vol] 8 U/L Normal 7-38 [facility] Comment on above: Performed By: #### S ERFOL, IRON, B12, FERR #### [facility] [address] [place], [place] [address] Anion gap [Moles/Vol] 9 mmol/L Normal 9-18 [facility] Comment on above: Performed By: #### S ERFOL, IRON, B12, FERR #### [facility] [address] [place], [place] [address] AST [Catalytic activity/Vol] 13 U/L Normal 13-35 [facility] Comment on above: Performed By: #### S ERFOL, IRON, B12, FERR #### [id number] [address] Bilirubin [Mass/Vol] 0.2 mg/dL Normal 0.2-1.3 [facility] Comment on above: Performed By: #### S ERFOL, IRON, B12, FERR #### [address] [address] Calcium [Mass/Vol] 9.3 mg/dL Normal 8.5-10.2 [facility] Comment on above: Performed By: #### S ERFOL, IRON, B12, FERR #### [address] [address] Chloride [Moles/Vol] 102 mmol/L Normal 97-105 [facility] Comment on above: Performed By: #### S ERFOL, IRON, B12, FERR #### [address] [address] CO2 [Moles/Vol] 23 mmol/L Normal 22-30 [facility] Comment on above: Performed By: #### S ERFOL, IRON, B12, FERR #### [address] [address] Creatinine [Mass/Vol] 0.55 mg/dL Low 0.58-0.96 [facility] Comment on above: Performed By: #### S ERFOL, IRON, B12, FERR #### [address] [address] eGFR- Amer. >60 Normal [facility] Comment on above: Performed By: #### S ERFOL, IRON, B12, FERR #### [address] [address] eGFR-All Other Races >60 Normal [facility] Comment on above: Result Comment: eGFR [...] #### S ERFOL, IRON, B12, FERR #### [facility] [address] [id number] Glucose [Mass/Vol] 96 mg/dL Normal 74-99 [facility] Comment on above: Result Comment: The [place] Diabetes Association (ADA) provides guidance for cutoff [...] Standards of Medical Care in Diabetes 2016, [place] [employer]. Diabetes Care. 2016.39(Suppl 1). Performed By: #### S ERFOL, IRON, B12, FERR #### [facility] [address] [place], [place] [address] Potassium [Moles/Vol] 3.3 mmol/L Low 3.7-5.1 [facility] Comment on above: Performed By: #### S ERFOL, IRON, B12, FERR #### [facility] [address] [place], [place] [address] Protein [Mass/Vol] 6.3 g/dL Normal 6.3-8.0 [facility] Comment on above: Performed By: #### S ERFOL, IRON, B12, FERR #### [address] [address] Sodium [Moles/Vol] 134 mmol/L Low 136-144 [facility] Comment on above: Performed By: #### S ERFOL, IRON, B12, FERR #### [address] [address] Urea nitrogen [Mass/Vol] 4 mg/dL Low 7-21 [facility] Comment on above: Performed By: #### S ERFOL, IRON, B12, FERR #### [address] [address] Ferritinon 11-08-2021 Ferritin [Mass/Vol] 203.0 ng/mL Normal 14.7-205.1 [facility] Comment on above: Performed By: #### S ERFOL, IRON, B12, FERR #### [address] [address] Folate, Serumon 11-08-2021 Folate [Mass/Vol] 8.5 ng/mL Normal >4.7 [facility] Comment on above: Performed By: #### S ERFOL, IRON, B12, FERR #### [address] [place], [place] [address] Iron and TIBCon 11-08-2021 Iron [Mass/Vol] 93 ug/dL Normal 41-186 [facility] Comment on above: Performed By: #### S ERFOL, IRON, B12, FERR #### [address] [address] TIBC 407 ug/dL High 232-386 [facility] Comment on above: Performed By: #### S ERFOL, IRON, B12, FERR #### [facility] [address] [place], [place] [address] Transferrin Saturatn 23 % Normal 15-57 [facility] Comment on above: Performed By: #### S ERFOL, IRON, B12, FERR #### [facility] [address] [place], [place] [address] Remote CBCDIF (for [facility] use o nly)on 11-08-2021 Abs Baso <0.03 Normal <0.11 [facility] Abs [place] 0.57 k/uL Normal <0.87 [facility] Abs Neut 4.67 k/uL Normal 1.45-7.50 [facility] Absolute nRBC <0.01 Normal <0.01 [facility] Basophils/100 WBC (Bld) 0.3 % Normal [facility] DTYPE Auto Diff Normal [facility] Eosinophils (Bld) [#/Vol] 0.05 10*3/uL Normal <0.46 [facility] Eosinophils/100 WBC (Bld) 0.8 % Normal [facility] Erythrocyte distribution width (RBC) [Ratio] 29.9 % High 11.5-15.0 [facility] Hematocrit (Bld) [Volume fraction] 32.6 % Low 36.0-46.0 [facility] Hemoglobin (Bld) [Mass/Vol] 10.1 g/dL Low 11.5-15.5 [facility] Lymphocytes (Bld) [#/Vol] 1.25 10*3/uL Normal 1.00-4.00 [facility] Lymphocytes/100 WBC (Bld) 19.1 % Normal [facility] MCH 25.1 pG Low 26.0-34.0 [facility] MCHC (RBC) [Mass/Vol] 31.0 g/dL Normal 30.5-36.0 [facility] MCV (RBC) [Entitic vol] 81.1 fL Normal 80.0-100.0 [facility] Monocytes/100 WBC (Bld) 8.7 % Normal [facility] Neutrophils/100 WBC (Bld) 71.1 % Normal [facility] NRBCs 0.0 /100 WBC Normal 0 [facility] Platelet mean volume (Bld) [Entitic vol] 10.3 fL Normal 9.0-12.7 [facility] Platelets (Bld) [#/Vol] 223 10*3/uL Normal 150-400 [facility] Comment on above: Result Comment: Resu lt checked and verified Sample checked for a clot. RBC (Bld) [#/Vol] 4.02 10*6/uL Normal 3.90-5.20 [facility] WBC (Bld) [#/Vol] 6.56 10*3/uL Normal 3.70-11.00 [facility] Reticulocyteon 11-08-2021 Abs Retic 0.140 M/uL High 0.0180-0.1000 [facility] Comment on above: Performed By: #### S ERFOL, IRON, B12, FERR #### [facility] [address] [address] Retic% 3.5 % High 0.4-2.0 [facility] Comment on above: Performed By: #### S ERFOL, IRON, B12, FERR #### [facility] [address], [place] [id number] Vitamin B12on 11-08-2021 Cobalamin (Vitamin B12) [Mass/Vol] 218 pg/mL Low 232-1245 [facility] Comment on above: Performed By: #### S ERFOL, IRON, B12, FERR #### [facility] [address] [address] HCV RNA,Quant,PCRon 04-27-20 HCV RNA,Quant,PCR Specimen Description [...] 04/27/2020 Normal [facility] Comment on above: Performed By: #### H IVCMB, PHEP #### [address] [address] [employer]: Dom Fowler MD #### CP #### [facility] [address] [place] [address] [employer]inder: Shakeel Graham MD [facility] 04-26-2020 Erythrocyte distribution width (RBC) [Ratio] 14.7 % High 11.8-14.4 [facility] Comment on above: Performed By: #### H IVCMB, PHEP #### [address] [address] [employer]: Dom Fowler MD #### CP #### [facility] [address] [place] [address] [employer]inder: Shakeel Graham MD Hematocrit (Bld) [Volume fraction] 36.0 % Low 36.3-47.1 [facility] Comment on above: Performed By: #### H IVCMB, PHEP #### [address] [address] [employer] Winder: Dom Fowler MD #### CP #### [facility] [address] [place] [address] [employer] Winder: Shakeel Graham MD Hemoglobin (Bld) [Mass/Vol] 10.9 g/dL Low 11.9-15.1 [facility] Comment on above: Performed By: #### H IVCMB, PHEP #### [address] [id number] [employer]: Dom Fowler MD #### CP #### [facility] [address] [place] [address] [employer] Winder: Shakeel Graham MD MCH (RBC) [Entitic mass] 26.2 pg Normal 25.2-33.5 [facility] Comment on above: Performed By: #### H IVCMB, PHEP #### [address] [id number] [employer]: Dom Fowler MD #### CP #### [facility] [address] [place] [address] [employer] Winder: Shakeel Graham MD MCHC (RBC) [Mass/Vol] 30.3 g/dL Normal 28.4-34.8 [facility] Comment on above: Performed By: #### H IVCMB, PHEP #### [address] [id number] [employer]: Dom Fowler MD #### CP #### [facility] [address] [id number] [employer]: Shakeel Graham MD MCV (RBC) [Entitic vol] 86.5 fL Normal 82.6-102.9 [facility] Comment on above: Performed By: #### H IVCMB, PHEP #### [address] [address] [employer] Rol[employer]inder: Dom Fowler MD #### CP #### [facility] [address] [place] [id number] Paint Roller Winder: Shakeel Graham MD NRBC Automated 0.0 per 100 WBC Normal 0.0 [facility] Comment on above: Performed By: #### H IVCMB, PHEP #### [address] [id number] [employer] Roller Winder: Dom Fowler MD #### CP #### [facility] [address] [place] [address] [employer] Roller Winder: Shakeel Graham MD Platelet mean volume (Bld) [Entitic vol] 10.8 fL Normal 8.1-13.5 [facility] Comment on above: Performed By: #### H IVCMB, PHEP #### [id number] [place], [place] [id number] [employer] Roller Winder: Dom Fowler MD #### CP #### [facility] [address] [place], [place] [id number] [employer] Roller Winder: Shakeel Graham MD Platelets (Bld) [#/Vol] 328 10*3/uL Normal 138-453 [facility] Comment on above: Performed By: #### H IVCMB, PHEP #### [address] [id number] [employer] Rol[employer] Winder: Dom Fowler MD #### CP #### [facility] [address] [place] [address] Paint Roller Winder: Shakeel Graham MD RBC (Bld) [#/Vol] 4.16 10*6/uL Normal 3.95-5.11 [facility] Comment on above: Performed By: #### H IVCMB, PHEP #### [address] [id number] [employer] Rol[employer]inder: Dom Fowler MD #### CP #### [facility] [address] [place] [address] [employer] Roller Winder: Shakeel Graham MD WBC (Bld) [#/Vol] 5.7 10*3/uL Normal 3.5-11.3 [facility] Comment on above: Performed By: #### H IVCMB, PHEP #### [address] [id number] [employer] Rol[employer] Winder: Dom Fowler MD #### CP #### [facility] [address] [place] [address] Paint Roller Winder: Shakele Graham MD Erythrocyte distribution width (RBC) [Ratio] 14.7 % High 11.8 - 14.4 % [place] Hematocrit (Bld) [Volume fraction] 36.0 % Low 36.3 - 47.1 % [place] Hemoglobin (Bld) [Mass/Vol] 10.9 g/dL Low 11.9 - 15.1 g/dL [place] Interpretation and review of laboratory results Abnormal [place] MCH (RBC) [Entitic mass] 26.2 pg 25.2 - 33.5 pg [place] MCHC (RBC) [Mass/Vol] 30.3 g/dL 28.4 - 34.8 g/dL [place] MCV (RBC) [Entitic vol] 86.5 fL 82.6 - 102.9 fL [place] Platelet mean volume (Bld) [Entitic vol] 10.8 fL 8.1 - 13.5 fL [place] Platelets (Bld) [#/Vol] 328 10*3/uL [place] RBC (Bld) [#/Vol] 4.16 10*6/uL 3.95 - 5.1 1 m/uL [place] WBC (Bld) [#/Vol] 0.0 10*3/uL 0.0 per 100 WBC [place] WBC (Bld) [#/Vol] 5.7 10*3/uL [place] Comp Metabolic Profon 2019 Bilirubin Ql (U) <0.10 Low 0.3-1.2 [facility] Comment on above: Performed By: #### H IVCMB, PHEP #### [facility] [address] [place] [address] Paint Roller Winder: Dom Fowler MD #### CP #### [facility] [address] [place] [address] Paint Roller Winder: Shakeel Graham MD (cont.) Normal [facility] Comment on above: Result Comment: Aver age GFR for 20-29 years old: 116 mL/min/1.73sq m Chronic Kidney Disease: <60 mL/min/1.73sq m Kidney failure: <15 mL/min/1.73sq m eGFR calculated using average adult body mass. Additional eGFR calculator available at: http://www.[employer]/multiple_crcl_2011.htm Performed By: #### H IVCMB, PHEP #### [facility] [address] [place] [address] [employer] Roller Winder: Dom Fowler MD #### CP #### [facility] [address] [place] [address] Paint Roller Winder: Shakeel Graham MD Albumin [Mass/Vol] 3.4 g/dL Low 3.5-5.2 [facility] Comment on above: Performed By: #### H IVCMB, PHEP #### [address] [address] [employer] Roller Winder: Dom Fowler MD #### CP #### [facility] [address] [place] [address] [place] [address] [employer] Roller Winder: Shakeel Graham MD Albumin/Globulin [Mass ratio] 1.5 {ratio} Normal 1.0-2.5 [facility] Comment on above: Performed By: #### H IVCMB, PHEP #### [address] [address] [employer] Rol[employer] Winder: Dom Fowler MD #### CP #### [facility] [address] [place] [address] Paint Roller Winder: Shakeel Graham MD Alkaline Phos 40 U/L Normal 35-104 [facility] Comment on above: Performed By: #### H IVCMB, PHEP #### [address] [address] [employer] Roller Winder: Dom Fowler MD #### CP #### [facility] [address] [place] [id number] [employer] Roller Winder: Shakeel Graham MD ALT [Catalytic activity/Vol] 12 U/L Normal 5-33 [facility] Comment on above: Performed By: #### H IVCMB, PHEP #### [facility] [address] [place] [address] [employer] Roller Winder: Dom Fowler MD #### CP #### [facility] [address] [place] [id number] [employer] Rol[employer] Winder: Shakeel Graham MD Anion gap [Moles/Vol] 9 mmol/L Normal 9-17 [facility] Comment on above: Performed By: #### H IVCMB, PHEP #### [address] [address] [employer] Rol[employer] Winder: Dom Fowler MD #### CP #### [facility] [address] [place] [id number] [employer] Roller Winder: Shakeel Graham MD AST [Catalytic activity/Vol] 12 U/L Normal <32 [facility] Comment on above: Performed By: #### H IVCMB, PHEP #### [address] [address] [employer] Roller Winder: Dom Fowler MD #### CP #### [facility] [address] [place] [id number] [employer] Roller Winder: Shakeel Graham MD BUN/CRE Ratio 26 High 9-20 [facility] Comment on above: Performed By: #### H IVCMB, PHEP #### [address] [address] [employer] Roller Winder: Dom Fowler MD #### CP #### [facility] [address] [place] [id number] [employer] Roller Winder: Shakeel Graham MD Calcium [Mass/Vol] 9.3 mg/dL Normal 8.6-10.4 [facility] Comment on above: Performed By: #### H IVCMB, PHEP #### [address] [address] [employer] Roller Winder: Dom Fowler MD #### CP #### [facility] [address] [place] [address] Dr. [place], [place] [phone] [employer] Roller Winder: Shakeel Graham MD Chloride [Moles/Vol] 109 mmol/L High 98-107 [facility] Comment on above: Performed By: #### H IVCMB, PHEP #### [address] [address] [employer] Roller Winder: Dom Fowler MD #### CP #### [address] [place] [phone] [employer] Roller Winder: Shakeel Graham MD CO2 [Moles/Vol] 26 mmol/L Normal 20-31 [facility] Comment on above: Performed By: #### H IVCMB, PHEP #### [address] [address] [employer] Roller Winder: Dom Fowler MD #### CP #### [address] [place] [phone] [employer] Roller Winder: Shakeel Graham MD Creatinine [Mass/Vol] 0.57 mg/dL Normal 0.50-0.90 [facility] Comment on above: Performed By: #### H IVCMB, PHEP #### [address] [address] [employer] Roller Winder: Dom Fowler MD #### CP #### [facility] [address] [place] [address] Dr. [place], [place] [id number] Paint Roller Winder: Shakeel Graham MD GFR, Amer >60 Normal >60 [facility] Comment on above: Performed By: #### H IVCMB, PHEP #### [address] [address] [employer] Roller Winder: Dom Fowler MD #### CP #### [facility] [address] [place], [place] [phone] Paint Roller Winder: Shakeel Graham MD GFR,non Amer >60 Normal >60 [facility] Comment on above: Performed By: #### H IVCMB, PHEP #### [address] [address] [employer] Roller Winder: Dom Fowler MD #### CP #### [address] [place], [place] [id number] Paint Roller Winder: Shakeel Graham MD Glucose [Mass/Vol] 92 mg/dL Normal 70-99 [facility] Comment on above: Performed By: #### H IVCMB, PHEP #### [address] [address] Paint Roller Winder: Dom Fowler MD #### CP #### [address] [place], [place] [id number] Paint Roller Winder: Shakeel Graham MD Potassium [Moles/Vol] 3.8 mmol/L Normal 3.7-5.3 [facility] Comment on above: Performed By: #### H IVCMB, PHEP #### [address] [address] Paint Roller Winder: Dom Fowler MD #### CP #### [facility] [address] [place] [address] Dr. [place], [place] [id number] Paint Roller Winder: Shakeel Graham MD Protein [Mass/Vol] 5.7 g/dL Low 6.4-8.3 [facility] Comment on above: Performed By: #### H IVCMB, PHEP #### [address] [address] [employer] Roller Winder: Dom Fowler MD #### CP #### [address] [place] [address] Paint Roller Winder: Shakeel Graham MD Sodium [Moles/Vol] 144 mmol/L Normal 135-144 [facility] Comment on above: Performed By: #### H IVCMB, PHEP #### [address] [address] [employer] Roller Winder: Dom Fowler MD #### CP #### [address] [place] [address] Paint Roller Winder: Shakeel Graham MD Staging: Normal [facility] Comment on above: Result Comment: Stag e 1: Some kidney damage normal GFR Stage 2: Mild kidney damage GFR 60-89 Stage 3: Moderate kidney damage GFR 30-59 Stage 4: Severe kidney damage GFR 15-29 Stage 5: Severe kidney damage GFR <15 ESRD - chronic treatment by dialysis or transplant Performed By: #### H IVCMB, PHEP #### [address] [address] Paint Roller Winder: Dom Fowler MD #### CP #### [address] [place] [address] Paint Roller Winder: Shakeel Graham MD Urea nitrogen [Mass/Vol] 15 mg/dL Normal 6-20 [facility] Comment on above: Performed By: #### H IVCMB, PHEP #### [address] [address] Paint Roller Winder: Dom Fowler MD #### CP #### [address] [place] [address] Paint Roller Winder: Shakeel Graham MD [facility] 04-26-2020 Albumin [Mass/Vol] 3.4 g/dL Low 3.5 - 5.2 g/dL [place] Albumin/Globulin [Mass ratio] 1.5 {ratio} [place] ALP [Catalytic activity/Vol] 40 U/L 35 - 104 U/L [place] ALT [Catalytic activity/Vol] 12 U/L 5 - 33 U/L [place] Anion gap [Moles/Vol] 9 mmol/L 9 - 17 mmol/L [place] AST [Catalytic activity/Vol] 12 U/L <32 [place] Bilirubin Ql (U) <0.10 Low 0.3 - 1.2 mg/dL [place] Bun/Cre Ratio 26 High [place] Calcium [Mass/Vol] 9.3 mg/dL 8.6 - 10. 4 mg/dL [place] Chloride [Moles/Vol] 109 mmol/L High 98 - 107 mmol/L [place] CO2 [Moles/Vol] 26 mmol/L 20 - 31 mmol/L [place] Creatinine [Mass/Vol] 0.57 mg/dL 0.5 - 0.9 mg/dL [place] GFR >60 >60 mL/min [place] GFR Non- >60 >60 mL/min [place] Glucose [Mass/Vol] 92 mg/dL 70 - 99 mg/dL [place] Interpretation and review of laboratory results Abnormal [place] Potassium [Moles/Vol] 3.8 mmol/L 3.7 - 5.3 mmol/L [place] Protein [Mass/Vol] 5.7 g/dL Low 6.4 - 8.3 g/dL [place] Sodium [Moles/Vol] 144 mmol/L 135 - 144 mmol/L [place] Urea nitrogen [Mass/Vol] 15 mg/dL 6 - 20 mg/dL [place] HCG Qualitative, Serumon hCG Qual Negative NEGATIVE [place] Comment on above: Specimens with hCG l evels near the threshold of the test (25 mIU/mL) may give a negative or indeterminate result. In such cases, another test should be performed with a new specimen in 48-72 hours. If early is suspected clinically in this setting, correlation with quantitative serum b-hCG level is suggested. [facility] has confirmed the use of plasma for this test. This has not been cleared or approved by the U.S. Food and Drug Administration. The FDA has determined that such clearance is not necessary. HCG Screen, Bloodon 04-26-20 20 HCG Qn Negative Normal NEG [facility] Comment on above: Result Comment: Spec imens with hCG levels near the threshold of the test (25 mIU/mL) may give a negative or indeterminate result. In such cases, another test should be performed with a new specimen in 48-72 hours. If early is suspected clinically in this setting, correlation with quantitative serum b-hCG level is suggested. [employer] has confirmed the use of plasma for this test. This has not been cleared or approved by the U.S. Food and Drug Administration. The FDA has determined that such clearance is not necessary. Performed By: #### H IVCMB, PHEP #### [facility] [address] [place], [place] [id number] Paint Roller Winder: Dom Fowler MD #### CP #### [address] [place] [address] Paint Roller Winder: Shakeel Graham MD HIV Ag/Abon 04-26-2020 HIV Ag/Ab NONREACTIVE Normal NR [facility] Comment on above: Result Comment: No l aboratory evidence of HIV infection. If acute HIV infection is suspected, consider testing for HIV-1 RNA. Performed By: #### H IVCMB, PHEP #### [facility] [address] [place] [address] Paint Roller Winder: Dom Fowler MD #### CP #### [facility] [address] [place] [address] Paint Roller Winder: Shakeel Graham MD HIV Screenon 04-26-2020 HIV Ag/Ab NONREACTIVE NONREACTIVE [place] Comment on above: No laboratory eviden ce of HIV infection. If acute HIV infection is suspected, consider testing for HIV-1 RNA. Hepatitis Acute [facility] 04-26 Hep A Ab,IgM NONREACTIVE Normal NR [facility] Comment on above: Performed By: #### H IVCMB, PHEP #### [facility] [address] [place] [address] Paint Roller Winder: Dom Fowler MD #### CP #### [facility] [address] [place] [address] [place] [address] Paint Roller Winder: Shakeel Graham MD Hep B Core Ab,IgM NONREACTIVE Normal [facility] Comment on above: Performed By: #### H IVCMB, PHEP #### [address] [address] Paint Roller Winder: Dom Fowler MD #### CP #### [address] [place], [place] [phone] Paint Roller Winder: Shakeel Graham MD Hep B Surf Ag NONREACTIVE Normal [facility] Comment on above: Performed By: #### H IVCMB, PHEP #### [facility] [address] [place] [address] Paint Roller Winder: Dom Fowler MD #### CP #### [address] [place] [address] Paint Roller Winder: Shakeel Graham MD Hep C Ab REACTIVE Abnormal NR [facility] Comment on above: Result Comment: The hepatitis [...] Performed By: #### H IVCMB, PHEP #### [facility] [address] [place] [address] Paint Roller Winder: Dom Fowler MD #### CP #### [facility] [address] [place] [address] Paint Roller Winder: Shakeel Graham MD Hepatitis Panel, Acuteon HAV IgM IA Qn (S) NONREACTIVE NONREACTIVE [place] Hep B Core Ab, IgM NONREACTIVE NONREACTIVE [place] Hepatitis B Surface Ag NONREACTIVE NONREACTIVE [place] Hepatitis C Ab REACTIVE Abnormal NONREACTIVE [place] Comment on above: The hepatitis C [...] Interpretation and review of laboratory results Abnormal [place] Metabolic Panelon 04-26-2020 GFR/1.73 sq M predicted among non-blacks MDRD (S/P/Bld) [Vol rate/Area] [place] Comment on above: Stage 1: Some [...] body mass. Additional eGFR calculator available at: http://www.[employer]initell.Impressto/multiple_crcl_2012.htm Microscopic Urinalysison Amorphous, UA NOT REPORTED None [place] Bacteria, UA NOT REPORTED None [place] Casts UA NOT REPORTED /LPF [place] Crystals, UA 5 TO 10 Abnormal None /HPF [place] Crystals, UA CALCIUM OXALATE Abnormal None /HPF [place] Epithelial Cells UA 0 TO 2 [place] Interpretation and review of laboratory results Abnormal [facility], [place] Mucus, UA TRACE Abnormal None [place] Other Observations UA NOT REPORTED NOT REQ. [place] RBC (U) [#/Vol] None [facility], [place] Renal Epithelial, UA NOT REPORTED 0 /HPF Me [facility], [place] Trichomonas, UA NOT REPORTED None [facility], [place] WBC, UA 0 TO 2 [facility], [place] Yeast, UA NOT REPORTED None [facility], [place] - [place] UA w/Reflex Cultureon 2019 Acetoacetic Acid,Ur Negative Normal NEG [facility] Comment on above: Performed By: #### H IVCMB, PHEP #### [address] [address] Paint Roller Winder: Dom Fowler MD #### CP #### [address] [place] [address] Paint Roller Winder: Shakeel Graham MD Bilirubin, SemiQt,Ur Negative Normal NEG [facility] Comment on above: Performed By: #### H IVCMB, PHEP #### [address] [address] Paint Roller Winder: Dom Fowler MD #### CP #### [address] [place] [address] Paint Roller Winder: Shakeel Graham MD Color (U) YELLOW Normal [facility] Comment on above: Performed By: #### H IVCMB, PHEP #### [address] [address] Paint Roller Winder: Dom Fowler MD #### CP #### [address] [place] [address] Paint Roller Winder: Shakeel Graham MD Glucose Ql (U) Negative Normal NEG [facility] Comment on above: Performed By: #### H IVCMB, PHEP #### [address] [address] Paint Roller Winder: Dom Fowler MD #### CP #### [facility] [address] [place] [address] Dr. [place], [place] [phone] Paint Roller Winder: Shakeel Graham MD Hemoglobin, Ur Negative Normal NEG [facility] Comment on above: Performed By: #### H IVCMB, PHEP #### [address] [address] Paint Roller Winder: Dom Fowler MD #### CP #### [address] [place], [place] 4141983 Paint Roller Winder: Shakeel Graham MD Leukocyte esterase Test strip Ql (U) Negative Normal NEG [facility] Comment on above: Performed By: #### H IVCMB, PHEP #### [address] [address] Paint Roller Winder: Dom Fowler MD #### CP #### [address] [place], [place] [phone] Paint Roller Winder: Shakeel Graham MD Nitrite,Ur Negative Normal NEG [facility] Comment on above: Performed By: #### H IVCMB, PHEP #### [address] [address] Paint Roller Winder: Dom Fowler MD #### CP #### [address] [place], [place] [phone] Paint Roller Winder: Shakeel Graham MD pH (U) 6.5 [pH] Normal 5.0-9.0 [facility] Comment on above: Performed By: #### H IVCMB, PHEP #### [address] [address] Paint Roller Winder: Dom Fowler MD #### CP #### [facility] [address] [place] [address] [place] [address] Paint Roller Winder: Shakeel Graham MD Protein Ql (U) Negative Normal NEG [facility] Comment on above: Performed By: #### H IVCMB, PHEP #### [facility] [address] [place] [address] Paint Roller Winder: Dom Fowler MD #### CP #### [address] [place] [address] Paint Roller Winder: Shakeel Graham MD Specific gravity (U) [Rel density] 1.025 High 1.010-1.020 [facility] Comment on above: Performed By: #### H IVCMB, PHEP #### [address] [address] Paint Roller Winder: Dom Fowler MD #### CP #### [address] [place], [place] [id number] Paint Roller Winder: Shakeel Graham MD Turbidity CLEAR Normal CLEAR [facility] Comment on above: Performed By: #### H IVCMB, PHEP #### [address] [address] Paint Roller Winder: Dom Fowler MD #### CP #### [address] [place] [address] Paint Roller Winder: Shakeel Graham MD Urobilinogen,Ur Normal Normal NORM [facility] Comment on above: Performed By: #### H IVCMB, PHEP #### [address] [address] Paint Roller Winder: Dom Fowler MD #### CP #### [address] [place] [address] Paint Roller Winder: Shakeel Graham MD Comment NOT REPORTED Normal [facility] Comment on above: Performed By: #### H IVCMB, PHEP #### [id number] [place] [address] Paint Roller Winder: Dom Fowler MD #### CP #### [facility] [address] [place] [address] [place] [address] Paint Roller Winder: Shakeel Graham MD Urinalysis Reflex to Culture on 04-26-2020 Bilirubin Urine Negative NEGATIVE [facility] [place] [place] Color, UA YELLOW YELLOW [facility], [place] Glucose, Ur Negative NEGATIVE [facility] Interpretation and review of laboratory results Abnormal [place] Ketones Ql (U) Negative NEGATIVE [facility], [place] Leukocyte esterase Test strip Ql (U) Negative NEGATIVE [facility] Nitrite, Urine Negative NEGATIVE [facility] pH, UA 6.5 [place] Protein (U) [Mass/Vol] Negative NEGATIVE [facility], [place] Specific [place], UA 1.025 High [facility], [place] Turbidity UA CLEAR CLEAR [place] Urinalysis Comments NOT REPORTED [facility], [place] Urine Hgb Negative NEGATIVE [facility] Urobilinogen, Urine Normal Normal [place] Urinalysis,Microon 0 ----- Normal [facility] Comment on above: Performed By: #### H IVCMB, PHEP #### [address] [address] Paint Roller Winder: Dom Fowler MD #### CP #### [facility] [address] [place] [address] [place] [address] Paint Roller Winder: Shakeel Graham MD Crystals LM Nom (Urine sed) CALCIUM OXALATE Abnormal NONE [facility] Comment on above: Result Comment: 5 TO 10 Performed By: #### H IVCMB, PHEP #### [id number] [place] [address] Paint Roller Winder: Dom Fowler MD #### CP #### [address] [place] [address] Paint Roller Winder: Shakeel Graham MD Epithelial cells LM.HPF (Urine sed) [#/Area] 0 TO 2 Normal 0-25 [facility] Comment on above: Performed By: #### H IVCMB, PHEP #### [address] [address] Paint Roller Winder: Dom Fowler MD #### CP #### [address] [place] [phone] Paint Roller Winder: Shakeel Graham MD Mucus Strands TRACE Abnormal NONE [facility] Comment on above: Performed By: #### H IVCMB, PHEP #### [address] [address] Paint Roller Winder: Dom Fowler MD #### CP #### [address] [place] [address] Paint Roller Winder: Shakeel Graham MD RBC (U) [#/Vol] None Normal 0-2 [facility] Comment on above: Performed By: #### H IVCMB, PHEP #### [address] [address] Paint Roller Winder: Dom Fowler MD #### CP #### [address] [place] [phone] ( Paint Roller Winder: Shakeel Graham MD WBC (U) [#/Vol] 0 TO 2 Normal 0-5 [facility] Comment on above: Performed By: #### H IVCMB, PHEP #### [address] [address] Paint Roller Winder: Dom Fowler MD #### CP #### [address] [place], [place] [phone] Paint Roller Winder: Shakeel Graham MD Amorphous sediment LM Ql (Urine sed) NOT REPORTED Normal NONE [facility] Comment on above: Performed By: #### H IVCMB, PHEP #### [facility] [address] [place] [address] Paint Roller Winder: Dom Fowler MD #### CP #### [facility] [address] [place] [address] [place] [address] Paint Roller Winder: Shakeel Graham MD Bacteria LM.HPF (Urine sed) [#/Area] NOT REPORTED Normal NONE [facility] Comment on above: Performed By: #### H IVCMB, PHEP #### [address] [address] Paint Roller Winder: Dom Fowler MD #### CP #### [address] [place] [address] Paint Roller Winder: Shakeel Graham MD Casts LM.LPF (Urine sed) [#/Area] NOT REPORTED Normal [facility] Comment on above: Performed By: #### H IVCMB, PHEP #### [address] [address] Paint Roller Winder: Dom Fowler MD #### CP #### [address] [place] [address] Paint Roller Winder: Shakeel Graham MD Epithelial, Renal NOT REPORTED Normal 0 [facility] Comment on above: Performed By: #### H IVCMB, PHEP #### [address] [address] Paint Roller Winder: Dom Fowler MD #### CP #### [address] [place] [address] Paint Roller Winder: Shakeel Graham MD Other Observations NOT REPORTED Normal NREQ [facility] Comment on above: Performed By: #### H IVCMB, PHEP #### [address] [address] Paint Roller Winder: Dom Fowler MD #### CP #### [facility] [address] [place] [id number] Paint Roller Winder: Shakeel Graham MD Trichomonas NOT REPORTED Normal NONE [facility] Comment on above: Performed By: #### H IVCMB, PHEP #### [facility] [address] [place] [address] Paint Roller Winder: Dom Fowler MD #### CP #### [facility] [address] [place] [id number] Paint Roller Winder: Shakeel Graham MD Yeast LM Ql (Urine sed) NOT REPORTED Normal NONE [facility] Comment on above: Performed By: #### H IVCMB, PHEP #### [id number] [place] [address] Paint Roller Winder: Dom Fowler MD #### CP #### [facility] [address] [place] [address] Dr. [place] [id number] Paint Roller Winder: Shakeel Graham MD ED Clinical Summaryon 2019 ED Clinical Summary [address] [address] ED Clinical Summary Person Information Name: Kathryn Ervin/[facility] Age: 25 Years : 1995 Sex: Female PCP: Marital Status: Single Phone: Race: White Ethnicity: Not or Language: Tanzanian Visit Reason: Drug withdrawal; Drug withdrawal Acuity: 3 Enc Type: Emergency Med Service: Emergency Medicine Arrival: 03/16/2020 20:10:45 Discharge: 03/17/2020 02:12:00 LOS: 000 06:02 Checkin: 03/16/2020 20:10:45 Checkout: 03/17/2020 02:12:00 Dispo Type: Home or Self Care Address: [address] [place] [id number] Provider Notes: Diagnosis: 1:Affective disorder; 2:Drug usage [...] range between ( 27.2 and 40.8 ) [place] Auto: 11.4 % -- Normal range between [...] range between ( 36.0 and 46.0 ) [place] Absolute: 1.5 x10 MCH: 27.4 pg -- [...] 03/16/2020 20:20:41 Follow up: With: Address: When: [facility] [place], [place] Within 1 to 2 days Discharge Orders: Discharge Patient 03/17/20 1:45:00 EDT, Discharge to Home, Self Patient Education Information: Understanding Methamphetamine Abuse and Addiction; Treating Affective (Mood) Disorders [facility] Poison Help line: . [facility] Mental Health Hotline: [place] Tobacco Quit Line: [place], [place]) [address]: [phone] [place], [place]) [address]: [phone] [facility] [address] [place], [place]: [phone] Normal [facility] hCG Quantitativeon 0 Beta hCG Qnt 1.7 mIU/mL Normal 0.0-4.9 [facility] Comment on above: Result Comment: 0.0 - 4.9 Negative for 5.0 - 25.0 Indeterminant for : Suggest repeat in 72 hours. >25.0 Positive for Performed By: #### H CG ####[place] [address] .UA Microscp Aon 03-16-2020 UA Hyline Cast Qual >20 Abnormal Negative [facility] Comment on above: Performed By: #### C [id number] ####[place] [id number] UA Mucus Present Abnormal Absent [facility] Comment on above: Performed By: #### C [id number] ####[place] [id number] UA RBC Quant 12 /HPF High 0-5 [facility] Comment on above: Performed By: #### C [id number] ####[address] [address] UA Squepi Cells Quant 6 /HPF Normal 0-29 [facility] Comment on above: Performed By: #### C D:[id number] ####[address] [address] UA WBC Quant 7 /HPF High 0-5 [facility] Comment on above: Performed By: #### C D:[id number] ####[address] [address] .eGFRon 03-16-2020 eGFR AA 52 mL/min/1.73m? Low >=60 [facility] Comment on above: Result Comment: Resu lt = 0-14.9 mL/min/1.73 m2 Kidney failure or Dialysis Result = 15-29 mL/min/1.73 m2 Severe decrease in GFR Result = 30-59 mL/min/1.73 m2 Moderate decrease in GFR Result >= 60 mL/min/1.73 m2 Normal or increased GFR Performed By: #### E GFR #### [address] [address] eGFR Non-AA 43 mL/min/1.73m? Low >=60 [facility] Comment on [...] dosing. Performed By: #### E GFR #### [address] [address] CBC w/ Diffon 03-16-2020 Erythrocyte distribution width (RBC) [Ratio] 15.9 % High 11.6-14.8 [facility] Comment on above: Performed By: #### C BC #### [address] [address] Hematocrit (Bld) [Volume fraction] 37.5 % Normal 36.0-46.0 [facility] Comment on above: Performed By: #### C BC #### [address] [address] Hemoglobin (Bld) [Mass/Vol] 12.5 g/dL Normal 12.0-16.0 [facility] Comment on above: Performed By: #### C BC #### [address] [address] MCH (RBC) [Entitic mass] 27.4 pg Normal 27.0-35.0 [facility] Comment on above: Performed By: #### C BC #### [address] [address] MCHC (RBC) [Mass/Vol] 33.2 % Normal 31.0-37.0 [facility] Comment on above: Performed By: #### C BC #### [address] [address] MCV (RBC) [Entitic vol] 82.4 fL Normal 80.0-100.0 [facility] Comment on above: Performed By: #### C BC #### [address] [address] Platelet mean volume (Bld) [Entitic vol] 9.4 fL Normal 6.7-10.6 [facility] Comment on above: Performed By: #### C BC #### [address] [address] Platelets (Bld) [#/Vol] 307 x10*3/mcL Normal 150-350 [facility] Comment on above: Performed By: #### C BC #### [address] [address] RBC (Bld) [#/Vol] 4.55 x10*6/mcL Normal 3.80-5.20 [facility] Comment on above: Performed By: #### C BC #### [address] [address] WBC (Bld) [#/Vol] 12.9 x10*3/mcL High 4.5-11.0 [facility] Comment on above: Performed By: #### C BC #### [address] [address] CMPon 03-16-2020 Albumin [Mass/Vol] 5.2 g/dL High 3.2-4.9 [facility] Comment on above: Result Comment: [facility] Laboratory updated the methodology used for albumin testing on 04/24/18. Albumin measurement was performed using a bromcresol purple dye-binding assay. Performed By: #### C OMP #### [address] [address] Albumin/Globulin [Mass ratio] 1.5 {ratio} Normal 1.1-2.2 [facility] Comment on above: Performed By: #### C OMP #### [address] [address] Alk Phos 47 IU/L Normal 32-91 [facility] Comment on above: Performed By: #### C OMP #### [address] [address] ALT [Catalytic activity/Vol] 19 U/L Normal 14-54 [facility] Comment on above: Performed By: #### C OMP #### [address] [place] [address] Anion gap [Moles/Vol] 22 mmol/L High 7-17 [facility] Comment on above: Performed By: #### C OMP #### [address] [address] AST [Catalytic activity/Vol] 31 U/L Normal 15-41 [facility] Comment on above: Performed By: #### C OMP #### [address] [address] Bili Total 1.4 mg/dL High 0.3-1.2 [facility] Comment on above: Performed By: #### C OMP #### [address] [address] Calcium [Mass/Vol] 10.2 mg/dL Normal 8.5-10.3 [facility] Comment on above: Performed By: #### C OMP #### [address] [address] Chloride [Moles/Vol] 100 mmol/L Normal 98-[address] [facility] Comment on above: Performed By: #### C OMP #### [address] [address] CO2 [Moles/Vol] 19 mmol/L Low 22-32 [facility] Comment on above: Performed By: #### C OMP #### [address] [address] Creatinine [Mass/Vol] 1.47 mg/dL High 0.44-1.03 [facility] Comment on above: Performed By: #### C OMP #### [address] [address] Glucose [Mass/Vol] 85 mg/dL Normal 70-99 [facility] Comment on above: Performed By: #### C OMP #### [address] [address] Potassium [Moles/Vol] 3.7 mmol/L Normal 3.4-4.8 [facility] Comment on above: Performed By: #### C OMP #### [address] [address] Protein [Mass/Vol] 8.7 g/dL High 6.5-8.1 [facility] Comment on above: Performed By: #### C OMP #### [address] [address] Sodium [Moles/Vol] 137 mmol/L Normal 133-142 [facility] Comment on above: Performed By: #### C OMP #### [address] [address] Urea nitrogen [Mass/Vol] 25 mg/dL Normal 8-26 [facility] Comment on above: Performed By: #### C OMP #### [address] [address] Urea nitrogen/Creatinine [Mass ratio] 17.0 mg/mg Normal 10.0-20.0 [facility] Comment on above: Performed By: #### C OMP #### [address] [address] CPKon 03-16-2020 Creatine Phosphokinase 439 IU/L High 38-234 [facility] Comment on above: Performed By: #### C P #### [address] [address] Diff Autoon 03-16-2020 Baso Absolute 0.0 x10*3/mcL Normal 0.0-0.2 [facility] Comment on above: Performed By: #### . Automated Diff #### [address] [address] Basophils/100 WBC (Bld) 0.4 % Normal 0.0-1.5 [facility] Comment on above: Performed By: #### . Automated Diff #### [address] [address] Eos Absolute 0.0 x10*3/mcL Normal 0.0-0.4 [facility] Comment on above: Performed By: #### . Automated Diff #### [address] [address] Eosinophils/100 WBC (Bld) 0.1 % Normal 0.0-5.4 [facility] Comment on above: Performed By: #### . Automated Diff #### [address] [address] Lymphocytes (Bld) [#/Vol] 1.4 x10*3/mcL Normal 1.0-4.8 [facility] Comment on above: Performed By: #### . Automated Diff #### [address] [address] Lymphocytes/100 WBC (Bld) 10.8 % Low 27.2-40.8 [facility] Comment on above: Performed By: #### . Automated Diff #### [address] [address] [place] Absolute 1.5 x10*3/mcL High 0.1-1.1 [facility] Comment on above: Performed By: #### . Automated Diff #### [facility] [address] [place] [address] Monocytes/100 WBC (Bld) 11.4 % Normal 3.7-11.9 [facility] Comment on above: Performed By: #### . Automated Diff #### [facility] [address] [place] [address] Neutro Absolute 10.0 x10*3/mcL High 1.8-7.7 [facility] Comment on above: Performed By: #### . Automated Diff #### [facility] [address] [place] [address] Neutro Auto 77.3 % High 47.2-70.8 [facility] Comment on above: Performed By: #### . Automated Diff #### [address] [address] ED Note-Nursingon 03-16-2020 ED Note-Nursing Lab called about add ons Electronically signed by Barbara Holman 03/16/20 20:49 EDT Normal [facility] ED Note-Physicianon 03-16-20 ED Note-Physician [...] that she has residential set up at [facility] in [place], [place] but she has to detox first. [...] as well. She was seen by Alonso, transition social worker who has arranged for her to go to [facility] tomorrow as patient is interested in treatment. Verbally contracted to safety and filled out a safety plan. Alonso with social work spoke with club director, Jelena who will arrange for further follow-up when they arrive tomorrow. Family is agreeable with plan. Patient has good support. They will return if any changes of symptoms or concern. Silvia Castañeda scribing for and in the presence of Dr. Cornell. Scribe Attestation: The information in this document, created by the medical engineer for me, accurately reflects the services I [...] High Lymph Auto 03/16/20 20:39 10.8 Low [place] Auto 03/16/20 20:39 11.4 Eos Auto 03/16/20 20:39 0.1 Basophil Auto 03/16/20 20:39 0.4 Neutro Absolute 03/16/20 20:39 10.0 High Lymph Absolute 03/16/20 20:39 1.4 [place] Absolute 03/16/20 20:39 1.5 High Eos Absolute [...] DANIELLE, Lima Richards 03/17/2020 04:16 EDT Normal [facility] Ethanolon 03-16-2020 Ethanol [Mass/Vol] mg/dL Normal <=9 [facility] Comment on above: Result Comment: To c onvert mg/dL to g/dL, divide result by 1,000. Legal limit of intoxication is 80 mg/dL (0.08 g/dL). Performed By: #### A LC #### [address] [address] UA w Culture if Indon 2019 Color (U) Terri Normal [facility] Comment on above: Performed By: #### U CI #### [address] [address] Glucose (U) [Mass/Vol] Negative Normal Negative [facility] Comment on above: Performed By: #### U CI #### [address] [place] [address] Ketones Ql (U) 20 mg/dL Abnormal Negative [facility] Comment on above: Performed By: #### U CI #### [address] [place] [address] UA Blood Small Abnormal Negative [facility] Comment on above: Performed By: #### U CI #### [address] [place] [address] UA Clarity Cloudy Normal [facility] Comment on above: Performed By: #### U CI #### [address] [address] UA Leukocyte Esterase Trace Abnormal Negative [facility] Comment on above: Performed By: #### U CI #### [address] [place] [address] UA Nitrite Negative Normal Negative [facility] Comment on above: Performed By: #### U CI #### [address] [address] UA pH 5.0 Normal 4.5 - 7.8 [facility] Comment on above: Performed By: #### U CI #### [address] [address] UA Protein 100 mg/dL Abnormal Negative [facility] Comment on above: Performed By: #### U CI #### [address] [address] UA Source Clean Catch Normal [facility] Comment on above: Performed By: #### U CI #### [address] [address] UA Spec Grav 1.025 Normal 1.003-1.035 [facility] Comment on above: Performed By: #### U CI #### [address] [address] UA Urobilinogen 0.2 mg/dL Normal 0.2 - 1.0 [facility] Comment on above: Performed By: #### U CI #### [address] [address] Urobilinogen Qn (U) Small Abnormal Negative [facility] Comment on above: Performed By: #### U CI #### [address] [address] UDS Compon 03-16-2020 Creatinine [Mass/Vol] mg/dL Normal [facility] Comment on above: Performed By: #### C [id number] #### [address] [address] Ur Amph Scrn Positive Abnormal NEG = <1000 [facility] Comment on above: Result Comment: This unconfirmed positive screening result is to be used for medical treatment purposes only. Unconfirmed screening results must not be used for non-medical purposes. (e.g. employment testing, legal testing). Performed By: #### C [id number] #### [address] [address] Ur Anastasia Scrn Negative Normal NEG = <200 [facility] Comment on above: Performed By: #### C [id number] #### [facility] [address] [place] [address] Ur Benzodia Scrn Negative Normal NEG = <200 [facility] Comment on above: Performed By: #### C D:[id number] #### [facility] [address] [place] [address] Ur Cannab Scrn Negative Normal NEG = <50 [facility] Comment on above: Performed By: #### C D:[id number] #### [facility] [address] [place] [address] Ur Cocaine Scrn Negative Normal NEG = <300 [facility] Comment on above: Performed By: #### C D:[id number] #### [address] [place] [address] Ur Methadone Scn Negative Normal NEG = <300 [facility] Comment on above: Performed By: #### C [id number] #### [address] [place] [address] Ur Opiate Scrn Negative Normal NEG = <300 [facility] Comment on above: Performed By: #### C D:[id number] #### [facility] [address] [place] [address], [place] [address] Ur Oxy Screen Negative Normal NEG = <100 [facility] Comment on above: Performed By: #### C D:[id number] #### [address] [place] [address] Ur Oxy Scrn Qnt 54 ng/mL Normal <=99 [facility] Comment on above: Performed By: #### C [id number] #### [facility] [address] [place] [address] [place] [address] Ur PCP Scrn Negative Normal NEG = <25 [facility] Comment on above: Performed By: #### C [id number] #### [address] [place] [address] UA pH 5.0 Normal 4.5 - 7.8 [facility] Comment on above: Performed By: #### C D:[id number] #### [facility] [address] [place] [address] UA Spec Grav 1.024 Normal 1.003-1.035 [facility] Comment on above: Performed By: #### C D:[id number] #### [facility] [address] [place] [address] Chlamydia/GC DNA, Uron 11-23 Chlamydia Probe, Ur Negative Normal NEG [facility] Comment on above: Result Comment: CHLA MYDIA [...] Performed By: #### H IVCMB, PHEP #### [id number] [place], [place] [id number] Paint Roller Winder: Dom Fowler MD #### CP #### [facility] [address] [place] [address] Paint Roller Winder: Shakeel Graham MD Gonorrhea Probe, Ur Negative Normal NEG [facility] Comment on above: Result Comment: NEIS SERIA [...] Performed By: #### H IVCMB, PHEP #### [id number] [place], [place] [id number] Paint Roller Winder: Dom Fowler MD #### CP #### [facility] [address] [place] [address] Paint Roller Winder: Shakeel Graham MD Cult,Urineon 11-22-2019 Cult,Urine Specimen Description .VOIDED URINE Special Requests NOT REPORTED Culture NO SIGNIFICANT GROWTH Report Status FINAL 11/22/2019 Normal [facility] Comment on above: Performed By: #### H IVCMB, PHEP #### [facility] [address] [place] [address] Paint Roller Winder: Dom Fowler MD #### CP #### [facility] [address] [place] [address] Paint Roller Winder: Shakeel Graham MD HIV Ag/Abon 11-21-2019 HIV Ag/Ab NONREACTIVE Normal [facility] Comment on above: Result Comment: No l aboratory evidence of HIV infection. If acute HIV infection is suspected, consider testing for HIV-1 RNA. Performed By: #### H IVCMB, PHEP #### [address] [address] Paint Roller Winder: Dom Fowler MD #### CP #### [facility] [address] [place] [address] Paint Roller Winder: Shakeel Grahma MD HIV Screenon 11-21-2019 HIV Ag/Ab NONREACTIVE NONREACTIVE [place], [place] Comment on above: No laboratory eviden ce of HIV infection. If acute HIV infection is suspected, consider testing for HIV-1 RNA. Hep C Abon 11-21-2019 Hep C Ab REACTIVE Abnormal NR [facility] Comment on above: Result Comment: The hepatitis [...] Performed By: #### H IVCMB, PHEP #### [facility] [place] [address] Paint Roller Winder: Dom Fowler MD #### CP #### [facility] [address] [place] [address] [place] [address] Paint Roller Winder: Shakeel Graham MD Profileon 0 Hep B Surf Ag NONREACTIVE Normal NR [facility] Comment on above: Performed By: #### H IVCMB, PHEP #### [address] [address] Paint Roller Winder: Dom Fowler MD #### CP #### [address] [place] [address] Paint Roller Winder: Shakeel Graham MD T.pallidum Ab Screen NONREACTIVE Normal NR [facility] Comment on above: Result Comment: T. pallidum antibodies are not detected. There is no serological evidence of infection with T. pallidum (early primary syphilis cannot be excluded). Retest in 2-4 weeks if syphilis is clinically suspect. Performed By: #### H IVCMB, PHEP #### [address] [address] Paint Roller Winder: Dom Fowler MD #### CP #### [address] [place], [place] 9[address]83 Paint Roller Winder: Shakeel Graham MD Rubella Ab, IgG 323.1 IU/mL Normal [facility] Comment on above: Result Comment: REFERENCE RANGE: <5.0 NON-REACTIVE (non-immune) 5.0 TO 9.9 EQUIVOCAL >=10.0 REACTIVE (immune) Performed By: #### H IVCMB, PHEP #### [address] [address] Paint Roller Winder: Dom Fowler MD #### CP #### [address] [place], [place] [id number] Paint Roller Winder: Shakeel Graham MD HCG, Quanton 11-20-2019 HCG, Quant [id number] IU/L High <5 [facility] Comment on above: Result Comment: Non-preg premeno [...] Performed By: #### H IVCMB, PHEP #### [facility] [address] [place] [address] Paint Roller Winder: Dom Fowler MD #### CP #### [facility] [address] [place] [address] Paint Roller Winder: Shakeel Graham MD HCG, Quantitative, on 11-20-2019 hCG Quant [id number] High <5 IU/L [place], [place] Comment on above: Non-preg premeno <=5 Postmeno <=8 Male <=3 If HCG results do not concur with clinical observations, additional testing to confirm results is recommended. Elevated results not associated with may be found in patients with other diseases such as tumors of the germ cells (testis, ovaries, etc.), bladder, pancreas, stomach, lungs, and liver. Interpretation and review of laboratory results Abnormal [place], [place] Hepatitis C Antibodyon 11-19 Hepatitis C Ab REACTIVE Abnormal NONREACTIVE [place], [place] Comment on above: The hepatitis C [...] Interpretation and review of laboratory results Abnormal [place], [place] TYPE AND SCREENon 0 11-20-2019 ABO/Rh Positive [place], [place] Profileon 0 Abs. Basophil 0.03 k/uL Normal 0.00-0.20 [facility] Comment on above: Performed By: #### H IVCMB, PHEP #### [facility] [address] [place] [address] Paint Roller Winder: Dom Fowler MD #### CP #### [facility] [address] [place] [address] Dr. [place] [id number] Paint Roller Winder: Shakeel Graham MD Abs.Imm.Granulocyte <0.03 Normal 0.00-0.30 [facility] Comment on above: Performed By: #### H IVCMB, PHEP #### [address] [address] Paint Roller Winder: Dom Fowler MD #### CP #### [facility] [address] [place] [address] [place] [address] Paint Roller Winder: Shakeel Graham MD Abs.Neutrophil (Seg) 2.95 k/uL Normal 1.50-8.10 [facility] Comment on above: Performed By: #### H IVCMB, PHEP #### [place] [address] Paint Roller Winder: Dom Fowler MD #### CP #### [facility] [address] [place] [address] [place] [address] Paint Roller Winder: Shakeel Graham MD Basophils/100 WBC (Bld) 1 % Normal 0-2 [facility] Comment on above: Performed By: #### H IVCMB, PHEP #### [place] [address] Paint Roller Winder: Dom Fowler MD #### CP #### [facility] [address] [place] [address] [place] [address] Paint Roller Winder: Shakeel Graham MD Eosinophils (Bld) [#/Vol] 0.09 10*3/uL Normal 0.00-0.44 [facility] Comment on above: Performed By: #### H IVCMB, PHEP #### [place] [address] Paint Roller Winder: Dom Fowler MD #### CP #### [address] [place], [place] [id number] Paint Roller Winder: Shakeel Graham MD Eosinophils/100 WBC (Bld) 2 % Normal 1-4 [facility] Comment on above: Performed By: #### H IVCMB, PHEP #### [address] [id number] Paint Roller Winder: Dom Fowler MD #### CP #### [address] [place], [place] [id number] Paint Roller Winder: Shakeel Graham MD Erythrocyte distribution width (RBC) [Ratio] 14.0 % Normal 11.8-14.4 [facility] Comment on above: Performed By: #### H IVCMB, PHEP #### [address] [id number] Paint Roller Winder: Dom Fowler MD #### CP #### [address] [place] [id number] Paint Roller Winder: Shakeel Graham MD Hematocrit (Bld) [Volume fraction] 37.7 % Normal 36.3-47.1 [facility] Comment on above: Performed By: #### H IVCMB, PHEP #### [address] [address] Paint Roller Winder: Dom Fowler MD #### CP #### [address] [place], [place] [id number] Paint Roller Winder: Shakeel Graham MD Hemoglobin (Bld) [Mass/Vol] 11.8 g/dL Low 11.9-15.1 [facility] Comment on above: Performed By: #### H IVCMB, PHEP #### [address] [address] Paint Roller Winder: Dom Fowler MD #### CP #### [address] [place], [place] [id number] Paint Roller Winder: Shakeel Graham MD Immature granulocytes (Bld) [#/Vol] 0 % Normal 0 [facility] [facility] Comment on above: Performed By: #### H IVCMB, PHEP #### [address] [address] Paint Roller Winder: Dom Fowelr MD #### CP #### [address] [place] [phone] Paint Roller Winder: Shakeel Graham MD Lymphocytes (Bld) [#/Vol] 1.50 10*3/uL Normal 1.10-3.70 [facility] Comment on above: Performed By: #### H IVCMB, PHEP #### [address] [address] Paint Roller Winder: Dom Fowler MD #### CP #### [address] [place] [phone] Paint Roller Winder: Shakeel Graham MD Lymphocytes/100 WBC (Bld) 30 % Normal 24-43 [facility] Comment on above: Performed By: #### H IVCMB, PHEP #### [address] [address] Paint Roller Winder: Dom Fowler MD #### CP #### [address] [place] [phone] Paint Roller Winder: Shakeel Graham MD MCH (RBC) [Entitic mass] 26.5 pg Normal 25.2-33.5 [facility] Comment on above: Performed By: #### H IVCMB, PHEP #### [address] [address] [employer] Roller Winder: Dom Fowler MD #### CP #### [address] [place] [phone] Paint Roller Winder: Shakeel Graham MD MCHC (RBC) [Mass/Vol] 31.3 g/dL Normal 28.4-34.8 [facility] Comment on above: Performed By: #### H IVCMB, PHEP #### [address] [id number] Paint Roller Winder: Dom Fowler MD #### CP #### [address] [place] [phone] Paint Roller Winder: Shakeel Graham MD MCV (RBC) [Entitic vol] 84.5 fL Normal 82.6-102.9 [facility] Comment on above: Performed By: #### H IVCMB, PHEP #### [address] [phone] Paint Roller Winder: Dom Fowler MD #### CP #### [address] [place] [phone] Paint Roller Winder: Shakeel Graham MD Monocytes (Bld) [#/Vol] 0.37 10*3/uL Normal 0.10-1.20 [facility] Comment on above: Performed By: #### H IVCMB, PHEP #### [address] [id number] Paint Roller Winder: Dom Fowler MD #### CP #### [address] [place] [phone] Paint Roller Winder: Shakeel Graham MD Monocytes/100 WBC (Bld) 8 % Normal 3-12 [facility] Comment on above: Performed By: #### H IVCMB, PHEP #### [address] [address] [employer] Roller Winder: Dom Fowler MD #### CP #### [address] [place] [address] Paint Roller Winder: Shakeel Graham MD Neutrophil (Seg) 59 % Normal 36-65 [facility] Comment on above: Performed By: #### H IVCMB, PHEP #### [id number] [place] [address] Paint Roller Winder: Dom Fowler MD #### CP #### [facility] [address] [place], [place] [phone] Paint Roller Winder: Shakeel Graham MD NRBC Automated 0.0 per 100 WBC Normal 0.0 [facility] Comment on above: Performed By: #### H IVCMB, PHEP #### [address] [address] Paint Roller Winder: Dom Fowler MD #### CP #### [facility] [address] [place] [phone] Paint Roller Winder: Shakeel Graham MD Platelet mean volume (Bld) [Entitic vol] 11.2 fL Normal 8.1-13.5 [facility] Comment on above: Performed By: #### H IVCMB, PHEP #### [address] [address] Paint Roller Winder: Dom Fowler MD #### CP #### [facility] [address] [place] [phone] Paint Roller Winder: Shakeel Graham MD Platelets (Bld) [#/Vol] 254 10*3/uL Normal 138-453 [facility] Comment on above: Performed By: #### H IVCMB, PHEP #### [address] [address] Paint Roller Winder: Dom Fowler MD #### CP #### [facility] [address] [place], [place] [phone] Paint Roller Winder: Shakeel Graham MD RBC (Bld) [#/Vol] 4.46 10*6/uL Normal 3.95-5.11 [facility] Comment on above: Performed By: #### H IVCMB, PHEP #### [facility] [address] [place] [address] Paint Roller Winder: Dom Fowler MD #### CP #### [facility] [address] [place] [address] Paint Roller Winder: Shakeel Graham MD WBC (Bld) [#/Vol] 5.0 10*3/uL Normal 3.5-11.3 [facility] Comment on above: Performed By: #### H IVCMB, PHEP #### [address] [address] Paint Roller Winder: Dom Fowler MD #### CP #### [facility] [address] [place] [address] [place] [address] Paint Roller Winder: Shakeel Graham MD Auto Diff Performed NOT REPORTED Normal [facility] Comment on above: Performed By: #### H IVCMB, PHEP #### [address] [address] [employer] Roller Winder: Dom Fowler MD #### CP #### [address] [place] [address] Paint Roller Winder: Shakeel Graham MD Platelets (Bld) [#/Vol] NOT REPORTED Normal [facility] Comment on above: Performed By: #### H IVCMB, PHEP #### [address] [address] [employer] Roller Winder: Dom Fowler MD #### CP #### [address] [place] [address] Paint Roller Winder: Shakeel Graham MD RBC morphology finding Nom (Bld) NOT REPORTED Normal [facility] Comment on above: Performed By: #### H IVCMB, PHEP #### [address] [address] [employer] Roller Winder: Dom Fowler MD #### CP #### [facility] [address] Felix, [place] [phone] Paint Roller Winder: Shakeel Graham MD WBC Morphology NOT REPORTED Normal [facility] Comment on above: Performed By: #### H IVCMB, PHEP #### [facility] [address] [place] [address] Paint Roller Winder: Dom Fowler MD #### CP #### [facility] [address] [place] [address] Dr. [place] [phone] Paint Roller Winder: Shakeel Graham MD Type + Scrnon 11-19 Type + Scrn Negative Normal [facility] Comment on above: Performed By: #### H IVCMB, PHEP #### [address] [address] Paint Roller Winder: Dom Fowler MD #### CP #### [address] [place] [phone] Paint Roller Winder: Shakeel Graham MD Toxicology [facility] Amphetamine(s),Ur Negative Normal NEG [facility] Comment on above: Performed By: #### H IVCMB, PHEP #### [address] [address] Paint Roller Winder: Dom Fowler MD #### CP #### [address] Felix, [place] [phone] Paint Roller Winder: Shakeel Graham MD Barbiturate(s),Ur Negative Normal NEG [facility] Comment on above: Performed By: #### H IVCMB, PHEP #### [address] [address] Paint Roller Winder: Dom Fowler MD #### CP #### [address] [place] [address] Paint Roller Winder: Shakeel Graham MD Benzodiazepine(s) Negative Normal NEG [facility] Comment on above: Performed By: #### H IVCMB, PHEP #### [facility] [address] [place] [address] Paint Roller Winder: Dom Fowler MD #### CP #### [facility] [address] [place] [address] Dr. [place], [place] [phone] Paint Roller Winder: Shakeel Graham MD Buprenorphrine, Ur Negative Normal NEG [facility] Comment on above: Performed By: #### H IVCMB, PHEP #### [facility] [address] [place] [address] Paint Roller Winder: Dom Fowler MD #### CP #### [address] [place] [phone] Paint Roller Winder: Shakeel Graham MD Cannabinoid(s),Ur Negative Normal [facility] Comment on above: Performed By: #### H IVCMB, PHEP #### [facility] [address] [place] [address] Paint Roller Winder: Dom Fowler MD #### CP #### [address] [place], [place] [phone] Paint Roller Winder: Shakeel Graham MD Cocaine Metabolite Negative [facility] Comment on above: Performed By: #### H IVCMB, PHEP #### [facility] [address] [place] [address] Paint Roller Winder: Dom Fowler MD #### CP #### [facility] [address] [place] [address] Dr. [place], [place] [phone] Paint Roller Winder: Shakeel Graham MD Methadone Ql (U) Negative Normal NEG [facility] Comment on above: Performed By: #### H IVCMB, PHEP #### [address] [address] Paint Roller Winder: Dom Fowler MD #### CP #### [facility] [address] [place] [address] Dr. [place], [place] [phone] Paint Roller Winder: Shakeel Graham MD Methamphetamine, Ur Negative Normal NEG [facility] Comment on above: Performed By: #### H IVCMB, PHEP #### [facility] [address] [place] [address] Paint Roller Winder: Dom Fowler MD #### CP #### [address] [place], [place] [phone] Paint Roller Winder: Shakeel Graham MD Opiate(s), Ur Negative Normal NEG [facility] Comment on above: Performed By: #### H IVCMB, PHEP #### [address] [address] Paint Roller Winder: Dom Fowler MD #### CP #### [address] [place], [place] [phone] Paint Roller Winder: Shakeel Graham MD Oxycodone, Urine Negative Normal NEG [facility] Comment on above: Performed By: #### H IVCMB, PHEP #### [address] [address] Paint Roller Winder: Dom Fowler MD #### CP #### [address] [place], [place] [phone] Paint Roller Winder: Shakeel Graham MD Phencyclidine, Ur Negative Normal NEG [facility] Comment on above: Performed By: #### H IVCMB, PHEP #### [address] [address] Paint Roller Winder: Dom Fowler MD #### CP #### [address] [place], [place] [phone] Paint Roller Winder: Shakeel Graham MD Propoxyphene,Urine Negative Normal NEG [facility] Comment on above: Performed By: #### H IVCMB, PHEP #### [address] [address] Paint Roller Winder: Dom Fowler MD #### CP #### [facility] [address] [place] [address] Dr. [place], [place] [phone] Paint Roller Winder: Shakeel Graham MD Tricyclic antidepressants Screen Ql (U) Negative Normal NEG [facility] Comment on above: Result Comment: Drug screen results are to be used for medical purposes only. All positive results are unconfirmed. Testing for employment or legal uses should be sent to a reference laboratory for confirmation. Performed By: #### H IVCMB, PHEP #### [address] [address] Paint Roller Winder: Dom Fowler MD #### CP #### [address] [place] [address] Paint Roller Winder: Shakeel Graham MD Interpretive Info NOT REPORTED Normal [facility] Comment on above: Performed By: #### H IVCMB, PHEP #### [address] [address] Paint Roller Winder: Dom Fowler MD #### CP #### [address] [place], [place] [phone] Paint Roller Winder: Shakeel Graham MD MDMA, Urine NOT REPORTED Normal NEG [facility] Comment on above: Performed By: #### H IVCMB, PHEP #### [address] [address] Paint Roller Winder: Dom Fowler MD #### CP #### [address] [place] [address] Paint Roller Winder: Shakeel Graham MD Urine Drug Screen, Magda arizmendijudithon 11-20-2019 Amphetamine Screen, Ur Negative NEGATIVE [facility] [place] [place] Barbiturate Screen, Ur Negative NEGATIVE [facility] [place] Benzodiazepine Screen, Urine Negative NEGATIVE [facility] [place] Buprenorphine Urine Negative NEGATIVE [facility] [place] Cannabinoid Scrn, Ur Negative NEGATIVE [facility] [place] [place] Cocaine Metabolite, Urine Negative NEGATIVE [facility] [place] MDMA, Urine NOT REPORTED NEGATIVE [facility] [place] Methadone Screen, Urine Negative NEGATIVE [facility] [place] Methamphetamine, Urine Negative NEGATIVE [facility] [place] Opiates, Urine Negative NEGATIVE [facility] [place] Oxycodone Screen, Ur Negative NEGATIVE [facility] [place] Phencyclidine, Urine Negative NEGATIVE [facility] [place] Propoxyphene, Urine Negative NEGATIVE [facility] [place] Test Information NOT REPORTED [facility] [place] Tricyclic Antidepressants, Urine Negative NEGATIVE [facility] [place] Comment on above: Drug screen results are to be used for medical purposes only. All positive results are unconfirmed. Testing for employment or legal uses should be sent to a reference laboratory for confirmation. Chlamydia/GC DNA, Uron 06-20 Chlamydia Probe, Ur Negative Normal NEG [facility] Comment on above: Result Comment: CHLA MYDIA [...] nucleic acid target. Performed By: #### U [facility] #### [facility] [address] [place] [address] Paint Roller Winder: Dom Fowler MD Gonorrhea Probe, Ur Negative Normal NEG [facility] Comment on above: Result Comment: NEIS SERIA [...] target. Performed By: #### U CGP #### [address] [address] Paint Roller Winder: Dom Fowler MD Cult,Urineon 06-20-2019 Cult,Urine Specimen Description .CLEAN CATCH URINE Special Requests NOT REPORTED Culture NO SIGNIFICANT GROWTH Report Status FINAL 06/20/2019 Normal [facility] Comment on above: Performed By: #### H IVCMB, PHEP #### [address] [address] Paint Roller Winder: Dom Fowler MD #### CP #### [facility] [address] [place] [address] Paint Roller Winder: Shakeel Graham MD HIV Ag/Abon 06-20-2019 HIV Ag/Ab NONREACTIVE Normal [facility] Comment on above: Result Comment: No l aboratory evidence of HIV infection. If acute HIV infection is suspected, consider testing for HIV-1 RNA. Performed By: #### A HCV, HIVCMB #### [address] [address] Paint Roller Winder: Dom Fowler MD Hep C Abon 06-20-2019 Hep C Ab REACTIVE Abnormal [facility] Comment on above: Result Comment: [...] Performed By: #### A HCV, HIVCMB #### [address] [address] Paint Roller Winder: Dom Fowler MD Profileon 9 T.pallidum Ab Screen NONREACTIVE Normal [facility] Comment on above: Result Comment: T. pallidum antibodies are not detected. There is no serological evidence of infection with T. pallidum (early primary syphilis cannot be excluded). Retest in 2-4 weeks if syphilis is clinically suspect. Performed By: #### P RENAT #### [phone] [place] [address] Paint Roller Winder: Dom Fowler MD [facility] [address] [place] [address] Dr. [place], [place] [phone] Paint Roller Winder: Shakeel Graham MD Hep B Surf Ag NONREACTIVE Normal [facility] Comment on above: Performed By: #### P RENAT #### [address] [address] Paint Roller Winder: Dom Fowler MD [address] [place] [phone] Paint Roller Winder: Shakeel Graham MD Rubella Ab, IgG 286.1 IU/mL Normal [facility] Comment on above: Result Comment: REFERENCE RANGE: <5.0 NON-REACTIVE (non-immune) 5.0 TO 9.9 EQUIVOCAL >=10.0 REACTIVE (immune) Performed By: #### P RENAT #### [address] [address] Paint Roller Winder: Dom Fowler MD [address] [place], [facility] Paint Roller Winder: Shakeel Graham MD HCG, Quanton 06-19-2019 HCG, Quant [id number] IU/L High <5 [facility] Comment on above: Result Comment: Non-preg premeno <=5 Postmeno <=8 Male <=3 If HCG results do not concur with clinical observations, additional testing to confirm results is recommended. Elevated results not associated with may be found in patients with other diseases such as tumors of the germ cells (testis, ovaries, etc.), bladder, pancreas, stomach, lungs, and liver. Performed By: #### B HCG #### [address] Felix, [place] [phone] Paint Roller Winder: Shakeel Graham MD HCG, Quantitative, on 06-19-2019 hCG Quant [id number] High <5 IU/L [place], [place] Comment on above: Non-preg premeno <=5 Postmeno <=8 Male <=3 If HCG results do not concur with clinical observations, additional testing to confirm results is recommended. Elevated results not associated with may be found in patients with other diseases such as tumors of the germ cells (testis, ovaries, etc.), bladder, pancreas, stomach, lungs, and liver. Interpretation and review of laboratory results Abnormal [place] HIV Screenon 06-19-2019 HIV Ag/Ab NONREACTIVE NONREACTIVE [place] Comment on above: No laboratory eviden ce of HIV infection. If acute HIV infection is suspected, consider testing for HIV-1 RNA. Hepatitis C Antibodyon 06-19 Hepatitis C Ab REACTIVE Abnormal NONREACTIVE [place], [place] Comment on above: The hepatitis C [...] Interpretation and review of laboratory results Abnormal [place] PROFILE Ion 019 Basophils (Bld) [#/Vol] 10*3/uL [place] Basophils/100 WBC (Bld) 1 % 0 - 2 % [place] Differential Type NOT REPORTED [place] Eosinophils (Bld) [#/Vol] 0.09 10*3/uL [place] Eosinophils/100 WBC (Bld) 2 % 1 - 4 % [place] Erythrocyte distribution width (RBC) [Ratio] 15.7 % High 11.8 - 14.4 % [place] Hematocrit (Bld) [Volume fraction] 36.5 % 36.3 - 47.1 % [place] Hemoglobin (Bld) [Mass/Vol] 11.2 g/dL Low 11.9 - 15.1 g/dL [place] Hepatitis B Surface Ag NONREACTIVE NONREACTIVE [place] Immature granulocytes (Bld) [#/Vol] 0 % 0 [place] Immature granulocytes (Bld) [#/Vol] 10*3/uL [place] Interpretation and review of laboratory results Abnormal [place] Lymphocytes (Bld) [#/Vol] 1.98 10*3/uL [place] Lymphocytes/100 WBC (Bld) 46 % High 24 - 43 % [place] MCH (RBC) [Entitic mass] 25.6 pg 25.2 - 33.5 pg [place] MCHC (RBC) [Mass/Vol] 30.7 g/dL 28.4 - 34.8 g/dL [place] MCV (RBC) [Entitic vol] 83.3 fL 82.6 - 102.9 fL [place] Monocytes (Bld) [#/Vol] 0.37 10*3/uL [place] Monocytes/100 WBC (Bld) 9 % 3 - 12 % [place] Platelet mean volume (Bld) [Entitic vol] 11.6 fL 8.1 - 13.5 fL [place] Platelets (Bld) [#/Vol] NOT REPORTED [place] Platelets (Bld) [#/Vol] 196 10*3/uL [place] RBC (Bld) [#/Vol] 4.38 10*6/uL 3.95 - 5.1 1 m/uL [place] RBC morphology finding Nom (Bld) NOT REPORTED [place] Rubella virus IgG Ql (S) 286.1 IU/mL [place] Comment on above: REFERENCE RANGE: <5.0 NON-REACTIVE (non-immune) 5.0 TO 9.9 EQUIVOCAL >=10.0 REACTIVE (immune) Segmented neutrophils/100 WBC (Bld) 42 % 36 - 65 % [place] Segs Absolute 1.75 [place] T. pallidum, IgG NONREACTIVE NONREACTIVE [place] Comment on above: T. pallidum antibodies are not detected. There is no serological evidence of infection with T. pallidum (early primary syphilis cannot be excluded). Retest in 2-4 weeks if syphilis is clinically suspect. WBC (Bld) [#/Vol] 4.2 10*3/uL [place] WBC (Bld) [#/Vol] 0.0 10*3/uL 0.0 per 100 WBC [place] WBC Morphology NOT REPORTED [place], [place] TYPE AND SCREENon 1 ABO/Rh Positive [place], [place] Profileon 9 Abs. Basophil <0.03 Normal 0.00-0.20 [facility] Comment on above: Performed By: #### P RENAT #### [address] [address] Paint Roller Winder: Dom Fowler MD [facility] [address] [place] [address] [place] [address] Paint Roller Winder: Shakeel Graham MD Abs.Imm.Granulocyte <0.03 Normal 0.00-0.30 [facility] Comment on above: Performed By: #### P RENAT #### [address] [address] Paint Roller Winder: Dom Fowler MD [facility] [address] [place] [address] [place] [address] Paint Roller Winder: Shakeel Graham MD Abs.Neutrophil (Seg) 1.75 k/uL Normal 1.50-8.10 [facility] Comment on above: Performed By: #### P RENAT #### [address] [address] Paint Roller Winder: Dom Fowler MD [facility] [address] [place] [address] [place] [address] Paint Roller Winder: Shakeel Graham MD Basophils/100 WBC (Bld) 1 % Normal 0-2 [facility] Comment on above: Performed By: #### P RENAT #### [address] [place] [address] Paint Roller Winder: Dom Fowler MD [address] Felix [facility]83 Paint Roller Winder: Shakeel Graham MD Eosinophils (Bld) [#/Vol] 0.09 10*3/uL Normal 0.00-0.44 [facility] Comment on above: Performed By: #### P RENAT #### [address] [address] Paint Roller Winder: Dom Fowler MD [address] [place] [address] Paint Roller Winder: Shakeel Graham MD Eosinophils/100 WBC (Bld) 2 % Normal 1-4 [facility] Comment on above: Performed By: #### P RENAT #### [address] [address] Paint Roller Winder: Dom Fowler MD [address] [place] [phone] Paint Roller Winder: Shakeel Graham MD Erythrocyte distribution width (RBC) [Ratio] 15.7 % High 11.8-14.4 [facility] Comment on above: Performed By: #### P RENAT #### [address] [address] Paint Roller Winder: Dom Fowler MD [address] [place] [address] Paint Roller Winder: Shakeel Graham MD Hematocrit (Bld) [Volume fraction] 36.5 % Normal 36.3-47.1 [facility] Comment on above: Performed By: #### P RENAT #### [address] [address] Paint Roller Winder: Dom Fowler MD [address] [place] [phone] Paint Roller Winder: Shakeel Graham MD Hemoglobin (Bld) [Mass/Vol] 11.2 g/dL Low 11.9-15.1 [facility] Comment on above: Performed By: #### P RENAT #### [id number] [place] [address] Paint Roller Winder: Dom Fowler MD [facility] [address] [place] [address] Dr. [place] [phone] Paint Roller Winder: Shakeel Graham MD Immature granulocytes (Bld) [#/Vol] 0 % Normal 0 [facility] Comment on above: Performed By: #### P RENAT #### [address] [address] Paint Roller Winder: Dom Fowler MD [address] [place] [phone] Paint Roller Winder: Shakeel Graham MD Lymphocytes (Bld) [#/Vol] 1.98 10*3/uL Normal 1.10-3.70 [facility] Comment on above: Performed By: #### P RENAT #### [address] [address] Paint Roller Winder: Dom Fowler MD [address] [place] [phone] Paint Roller Winder: Shakeel Graham MD Lymphocytes/100 WBC (Bld) 46 % High 24-43 [facility] Comment on above: Performed By: #### P RENAT #### [address] [address] Paint Roller Winder: Dom Fowler MD [address] [place] [phone] Paint Roller Winder: Shakeel Graham MD MCH (RBC) [Entitic mass] 25.6 pg Normal 25.2-33.5 [facility] Comment on above: Performed By: #### P RENAT #### [address] [address] Paint Roller Winder: Dom Fowler MD [facility] [address] [place] [address] Dr. [place], [place] [phone] Paint Roller Winder: Shakeel Graham MD MCHC (RBC) [Mass/Vol] 30.7 g/dL Normal 28.4-34.8 [facility] Comment on above: Performed By: #### P RENAT #### [address] [id number] Paint Roller Winder: Dom Fowler MD [address] [place] [phone] Paint Roller Winder: Shakeel Graham MD MCV (RBC) [Entitic vol] 83.3 fL Normal 82.6-102.9 [facility] Comment on above: Performed By: #### P RENAT #### [address] [address] Paint Roller Winder: Dom Fowler MD [address] [place] [phone] Paint Roller Winder: Shakeel Graham MD Monocytes (Bld) [#/Vol] 0.37 10*3/uL Normal 0.10-1.20 [facility] Comment on above: Performed By: #### P RENAT #### [address] [address] Paint Roller Winder: Dom Fowler MD [address] [place] [id number] Paint Roller Winder: Shakeel Graham MD Monocytes/100 WBC (Bld) 9 % Normal 3-12 [facility] Comment on above: Performed By: #### P RENAT #### [address] [address] Paint Roller Winder: Dom Fowler MD [address] [place] [id number] Paint Roller Winder: Shakeel Graham MD Neutrophil (Seg) 42 % Normal 36-65 [facility] Comment on above: Performed By: #### P RENAT #### [address] [address] Paint Roller Winder: Dom Fowler MD [facility] [address] [place] [address] [place] [address] Paint Roller Winder: Shakeel Graham MD NRBC Automated 0.0 per 100 WBC Normal 0.0 [facility] Comment on above: Performed By: #### P RENAT #### [address] [address] Paint Roller Winder: Dom Fowler MD [facility] [address] [place] [address] [place] [address] Paint Roller Winder: Shakeel Graham MD Platelet mean volume (Bld) [Entitic vol] 11.6 fL Normal 8.1-13.5 [facility] Comment on above: Performed By: #### P RENAT #### [address] [address] Paint Roller Winder: Dom Fowler MD [facility] [address] [place] [address] [place] [address] Paint Roller Winder: Shakeel Graham MD Platelets (Bld) [#/Vol] 196 10*3/uL Normal 138-453 [facility] Comment on above: Performed By: #### P RENAT #### [address] [address] Paint Roller Winder: Dom Fowler MD [facility] [address] [place] [address] [place] [address] Paint Roller Winder: Shakeel Graham MD RBC (Bld) [#/Vol] 4.38 10*6/uL Normal 3.95-5.11 [facility] Comment on above: Performed By: #### P RENAT #### [address] [address] Paint Roller Winder: Dom Fowler MD [facility] [address] [place] [address] [place] [address] Paint Roller Winder: Shakeel Graham MD WBC (Bld) [#/Vol] 4.2 10*3/uL Normal 3.5-11.3 [facility] Comment on above: Performed By: #### P RENAT #### [address] [address] Paint Roller Winder: Dom Fowler MD [address] [place] [address] Paint Roller Winder: Shakeel Graham MD Auto Diff Performed NOT REPORTED Normal [facility] Comment on above: Performed By: #### P RENAT #### [address] [address] Paint Roller Winder: Dom Fowler MD [address] [place] [address] Paint Roller Winder: Shakeel Graham MD Platelets (Bld) [#/Vol] NOT REPORTED Normal [facility] Comment on above: Performed By: #### P RENAT #### [address] [address] Paint Roller Winder: oDm Fowler MD [address] [place] [address] Paint Roller Winder: Shakeel Graham MD RBC morphology finding Nom (Bld) NOT REPORTED Normal [facility] Comment on above: Performed By: #### P RENAT #### [address] [address] Paint Roller Winder: Dom Fowler MD [address] [place] [address] Paint Roller Winder: Shakeel Graham MD WBC Morphology NOT REPORTED Normal [facility] Comment on above: Performed By: #### P RENAT #### [address] [address] Paint Roller Winder: Dom Fowler MD [facility] [address] [place], [place] [id number] Paint Roller Winder: Shakeel Graham MD Type + Scrnon 06-19 Type + Scrn Negative [facility] Comment on above: Performed By: #### P RTYS #### [facility] [address] [place], [place] [id number] Paint Roller Winder: Shakeel Graham MD Toxicology Scree, Urineon Amphetamine(s),Ur Negative Normal NEG [facility] Comment on above: Performed By: #### C PDAU #### [facility] [address] [place], [place] [id number] Paint Roller Winder: Shakeel Graham MD Barbiturate(s),Ur Negative Normal NEG [facility] Comment on above: Performed By: #### C PDAU #### [facility] [address] [place], [place] [id number] Paint Roller Winder: Shakeel Graham MD Benzodiazepine(s) Negative Normal [facility] Comment on above: Performed By: #### C PDAU #### [facility] [address] [place], [place] [id number] Paint Roller Winder: Shakeel Graham MD Buprenorphrine, Ur Negative Normal NEG [facility] Comment on above: Performed By: #### C PDAU #### [facility] [address] [place], [place] [id number] Paint Roller Winder: Shakeel Graham MD Cannabinoid(s),Ur Negative Normal NEG [facility] Comment on above: Performed By: #### C PDAU #### [facility] [address] [place], [place] [id number] Paint Roller Winder: Shakeel Graham MD Cocaine Metabolite Negative Normal [facility] Comment on above: Performed By: #### C PDAU #### [facility] [address] [place], [place] [id number] Paint Roller Winder: Shakeel Graham MD Methadone Ql (U) Negative Normal NEG [facility] Comment on above: Performed By: #### C PDAU #### [facility] [address] [place] [address] Paint Roller Winder: Shakeel Graham MD Methamphetamine, Ur Negative Normal NEG [facility] Comment on above: Performed By: #### C PDAU #### [facility] [address] [place], [place] [id number] Paint Roller Winder: Shakeel Graham MD Opiate(s), Ur Negative Normal NEG [facility] Comment on above: Performed By: #### C PDAU #### [facility] [address] [place], [place] 2430483 Paint Roller Winder: Shakeel Graham MD Oxycodone, Urine Negative Normal NEG [facility] Comment on above: Performed By: #### C PDAU #### [facility] [address] [place], [place] [id number] Paint Roller Winder: Shakeel Graham MD Phencyclidine, Ur Negative Normal NEG [facility] Comment on above: Performed By: #### C PDAU #### [facility] [address] [place], [place] 5344183 Paint Roller Winder: Shakeel Graham MD Propoxyphene,Urine Negative Normal NEG [facility] Comment on above: Performed By: #### C PDAU #### [facility] [address] [place], [place] [id number] Paint Roller Winder: Shakeel Graham MD Tricyclic antidepressants Screen Ql (U) Positive Abnormal NEG [facility] Comment on above: Result Comment: Drug screen results are to be used for medical purposes only. All positive results are unconfirmed. Testing for employment or legal uses should be sent to a reference laboratory for confirmation. Performed By: #### C PDAU #### [facility] [address] [place] [address] Paint Roller Winder: Shakeel Graham MD Interpretive Info NOT REPORTED Normal [facility] Comment on above: Performed By: #### C PDAU #### [facility] [address] [place] [address] Paint Roller Winder: Shakeel Graham MD MDMA, Urine NOT REPORTED Normal NEG [facility] Comment on above: Performed By: #### C PDAU #### [facility] [address] [place] [address] Paint Roller Winder: Shakeel Graham MD Urine Drug Screen, Mag[place] [...] [place], [place] MDMA, Urine NOT REPORTED NEGATIVE [facility] [place], [place] Methadone [...] [place] Tricyclic Antidepressants, Urine Positive Abnormal NEGATIVE [facility] [place], [place] Comment on above: Drug screen results are to be used for medical purposes only. All positive results are unconfirmed. Testing for employment or legal uses should be sent to a reference laboratory for confirmation. HIV Ag/Abon 05-10-2019 HIV Ag/Ab NONREACTIVE Normal NR [facility] Comment on above: Result Comment: No l aboratory evidence of HIV infection. If acute HIV infection is suspected, consider testing for HIV-1 RNA. Performed By: #### H IVCMB, PHEP #### [facility] [address] [place] [address] Paint Roller Winder: Dom Fowler MD #### CP #### [facility] [address] [place] [address] Dr. [place], [place] [id number] Paint Roller Winder: Shakeel Graham MD Hepatitis Acute [facility] 05-10 Hep A Ab,IgM NONREACTIVE Normal [facility] Comment on above: Performed By: #### H IVCMB, PHEP #### [address] [address] Paint Roller Winder: Dom Fowler MD #### CP #### [address] [place], [place] 1564483 Paint Roller Winder: Shakeel Graham MD Hep B Core Ab,IgM NONREACTIVE Normal [facility] Comment on above: Performed By: #### H IVCMB, PHEP #### [address] [address] Paint Roller Winder: Dom Fowler MD #### CP #### [facility] [address] [place] [address] Dr. [place], [place] 0604583 Paint Roller Winder: Shakeel Graham MD Hep B Surf Ag NONREACTIVE Normal [facility] Comment on above: Performed By: #### H IVCMB, PHEP #### [address] [address] Paint Roller Winder: Dom Fowler MD #### CP #### [address] [place], [place] 0658583 Paint Roller Winder: Shakeel Graham MD Hep C Ab REACTIVE Abnormal [facility] Comment on above: Result Comment: [...] Performed By: #### H IVCMB, PHEP #### [address] [address] Paint Roller Winder: Dom Fowler MD #### CP #### [address] [place], [place] 7478183 Paint Roller Winder: Shakeel Graham MD Comp Metabolic Profon 2018 (cont.) Normal [facility] Comment on above: Result Comment: Aver age GFR for 20-29 years old: 116 mL/min/1.73sq m Chronic Kidney Disease: <60 mL/min/1.73sq m Kidney failure: <15 mL/min/1.73sq m eGFR calculated using average adult body mass. Additional eGFR calculator available at: http://www.[employer]/multiple_crcl_2012.htm Performed By: #### H IVCMB, PHEP #### [address] [address] Paint Roller Winder: Dom Fowler MD #### CP #### [facility] [address] [place] [address] Dr. [place], [place] 4470383 Paint Roller Winder: Shakeel Graham MD Albumin [Mass/Vol] 4.3 g/dL Normal 3.5-5.2 [facility] Comment on above: Performed By: #### H IVCMB, PHEP #### [address] [address] Paint Roller Winder: Dom Fowler MD #### CP #### [facility] [address] [place] [address] Dr. [place], [place] 1061383 Paint Roller Winder: Shakeel Graham MD Albumin/Globulin [Mass ratio] 1.4 {ratio} Normal 1.0-2.5 [facility] Comment on above: Performed By: #### H IVCMB, PHEP #### [address] [address] Paint Roller Winder: Dom Fowler MD #### CP #### [facility] [address] [place], [place] [phone] Paint Roller Winder: Shakeel Graham MD Alkaline Phos 50 U/L Normal 35-104 [facility] Comment on above: Performed By: #### H IVCMB, PHEP #### [facility] [address] [place] [address] Paint Roller Winder: Dom Fowler MD #### CP #### [facility] [address] [place] [address] Dr. [place], [place] [phone] Paint Roller Winder: Shakeel Graham MD ALT [Catalytic activity/Vol] 9 U/L Normal 5-33 [facility] Comment on above: Performed By: #### H IVCMB, PHEP #### [address] [address] Paint Roller Winder: Dom Fowler MD #### CP #### [address] [place], [place] 7267783 Paint Roller Winder: Shakeel Graham MD Anion gap [Moles/Vol] 8 mmol/L Low 9-17 [facility] Comment on above: Performed By: #### H IVCMB, PHEP #### [address] [address] Paint Roller Winder: Dom Fowler MD #### CP #### [address] [place], [place] 3035883 Paint Roller Winder: Shakeel Graham MD AST [Catalytic activity/Vol] 15 U/L Normal <32 [facility] Comment on above: Performed By: #### H IVCMB, PHEP #### [address] [address] Paint Roller Winder: Dom Fowler MD #### CP #### [address] [place], [place] 4470783 Paint Roller Winder: Shakeel Graham MD Bilirubin Ql (U) 0.31 mg/dL Normal 0.3-1.2 [facility] Comment on above: Performed By: #### H IVCMB, PHEP #### [facility] [address] [place] [address] Paint Roller Winder: Dom Fowler MD #### CP #### [facility] [address] [place], [place] [phone] Paint Roller Winder: Shakeel Graham MD BUN/CRE Ratio 20 Normal 9-20 [facility] Comment on above: Performed By: #### H IVCMB, PHEP #### [address] [address] Paint Roller Winder: Dom Fowler MD #### CP #### [facility] [address] [place] [phone] Paint Roller Winder: Shakeel Graham MD Calcium [Mass/Vol] 9.4 mg/dL Normal 8.6-10.4 [facility] Comment on above: Performed By: #### H IVCMB, PHEP #### [address] [address] Paint Roller Winder: Dom Fowler MD #### CP #### [facility] [address] [place] [address] Dr. [place], [place] [phone] Paint Roller Winder: Shakeel Graham MD Chloride [Moles/Vol] 102 mmol/L Normal 98-107 [facility] Comment on above: Performed By: #### H IVCMB, PHEP #### [address] [address] Paint Roller Winder: Dom Fowler MD #### CP #### [facility] [address] [place], [place] [phone] Paint Roller Winder: Shakeel Graham MD CO2 [Moles/Vol] 28 mmol/L Normal 20-31 [facility] Comment on above: Performed By: #### H IVCMB, PHEP #### [address] [address] Paint Roller Winder: Dom Fowler MD #### CP #### [facility] [address] [place] [address] Paint Roller Winder: Shakeel Graham MD Creatinine [Mass/Vol] 0.92 mg/dL High 0.50-0.90 [facility] Comment on above: Performed By: #### H IVCMB, PHEP #### [address] [address] Paint Roller Winder: Dom Fowler MD #### CP #### [facility] [address] [place], [place] 9570083 Paint Roller Winder: Shakeel Graham MD GFR, Amer >60 Normal >60 [facility] Comment on above: Performed By: #### H IVCMB, PHEP #### [address] [address] Paint Roller Winder: Dom Fowler MD #### CP #### [facility] [address] [place] [address] Dr. [place], [place] 5156083 Paint Roller Winder: Shakeel Graham MD GFR,non Amer >60 Normal >60 [facility] Comment on above: Performed By: #### H IVCMB, PHEP #### [address] [address] Paint Roller Winder: Dom Fowler MD #### CP #### [facility] [address] [place], [place] 5007983 Paint Roller Winder: Shakeel Graham MD Glucose [Mass/Vol] 91 mg/dL Normal 70-99 [facility] Comment on above: Performed By: #### H IVCMB, PHEP #### [address] [address] Paint Roller Winder: Dom Fowler MD #### CP #### [facility] [address] [place] [address] Dr. [place], [place] 9290983 Paint Roller Winder: Shakeel Graham MD Potassium [Moles/Vol] 4.3 mmol/L Normal 3.7-5.3 [facility] Comment on above: Performed By: #### H IVCMB, PHEP #### [address] [address] Paint Roller Winder: Dom oFwler MD #### CP #### [facility] [address] [place] [address] Dr. [place], [place] 1911083 Paint Roller Winder: Shakeel Graham MD Protein [Mass/Vol] 7.4 g/dL Normal 6.4-8.3 [facility] Comment on above: Performed By: #### H IVCMB, PHEP #### [address] [id number] Paint Roller Winder: Dom Fowler MD #### CP #### [facility] [address] [place] [address] [place], [place] [phone] Paint Roller Winder: Shakeel Graham MD Sodium [Moles/Vol] 138 mmol/L Normal 135-144 [facility] Comment on above: Performed By: #### H IVCMB, PHEP #### [address] [address] Paint Roller Winder: Dom Fowler MD #### CP #### [address] [place], [place] 4447383 Paint Roller Winder: Shakeel Graham MD Staging: Normal [facility] Comment on above: Result Comment: Stag e 1: Some kidney damage normal GFR Stage 2: Mild kidney damage GFR 60-89 Stage 3: Moderate kidney damage GFR 30-59 Stage 4: Severe kidney damage GFR 15-29 Stage 5: Severe kidney damage GFR <15 ESRD - chronic treatment by dialysis or transplant Performed By: #### H IVCMB, PHEP #### [address] [place] [id number] Paint Roller Winder: Dom Fowler MD #### CP #### [facility] [address] [place] [address] Paint Roller Winder: Shakeel Graham MD Urea nitrogen [Mass/Vol] 18 mg/dL Normal 6-20 [facility] Comment on above: Performed By: #### H IVC, PHEP #### [facility] [address] [place], [place] [id number] Paint Roller Winder: Dom Fowler MD #### CP #### [facility] [address] [place] [address] Paint Roller Winder: Shakeel Graham MD Comprehensive Metabolic Pane [facility] 05-09-2019 Albumin [Mass/Vol] 4.3 g/dL 3.5 - 5.2 g/dL [place], [place] Albumin/Globulin [Mass ratio] 1.4 {ratio} [place], [place] ALP [Catalytic activity/Vol] 50 U/L 35 - 104 U/L [place] ALT [Catalytic activity/Vol] 9 U/L 5 - 33 U/L [place] Anion gap [Moles/Vol] 8 mmol/L Low 9 - 17 mmol/L [place] AST [Catalytic activity/Vol] 15 U/L <32 [place] Bilirubin Ql (U) 0.31 mg/dL 0.3 - 1.2 mg/dL [place], [place] Bun/Cre Ratio 20 [place], [place] Calcium [Mass/Vol] 9.4 mg/dL 8.6 - 10. 4 mg/dL [place] Chloride [Moles/Vol] 102 mmol/L 98 - 107 mmol/L [place] CO2 [Moles/Vol] 28 mmol/L 20 - 31 mmol/L [place] Creatinine [Mass/Vol] 0.92 mg/dL High 0.5 - 0.9 mg/dL [place] GFR >60 >60 mL/min [place] GFR Non- >60 >60 mL/min [place] Glucose [Mass/Vol] 91 mg/dL 70 - 99 mg/dL [place] Interpretation and review of laboratory results Abnormal [place] Potassium [Moles/Vol] 4.3 mmol/L 3.7 - 5.3 mmol/L [place] Protein [Mass/Vol] 7.4 g/dL 6.4 - 8.3 g/dL [place] Sodium [Moles/Vol] 138 mmol/L 135 - 144 mmol/L [place] Urea nitrogen [Mass/Vol] 18 mg/dL 6 - 20 mg/dL [place] Hepatitis Panel, Acuteon HAV IgM IA Qn (S) NONREACTIVE NONREACTIVE [place] Hep B Core Ab, IgM NONREACTIVE NONREACTIVE [place] Hepatitis B Surface Ag NONREACTIVE NONREACTIVE [place] Hepatitis C Ab REACTIVE Abnormal NONREACTIVE [place], [place] Comment on above: The hepatitis C [...] Interpretation and review of laboratory results Abnormal [place] Metabolic Panelon 05-09-2019 GFR/1.73 sq M predicted among non-blacks MDRD (S/P/Bld) [Vol rate/Area] [place] Comment on above: Average GFR for 20-2 9 years old: 116 mL/min/1.73sq m Chronic Kidney Disease: <60 mL/min/1.73sq m Kidney failure: <15 mL/min/1.73sq m eGFR calculated using average adult body mass. Additional eGFR calculator available at: http://www.[employer]res[employer]/multiple_crcl_2012.htm Stage 1: Some kidney damage normal GFR Stage 2: Mild kidney damage GFR 60-89 Stage 3: Moderate kidney damage GFR 30-59 Stage 4: Severe kidney damage GFR 15-29 Stage 5: Severe kidney damage GFR <15 ESRD - chronic treatment by dialysis or transplant Drug Scr, Abuse, Uron 2017 Amphetamine(s),Ur Positive Abnormal NEG [facility] Comment on above: Result Comment: (Pos itive cutoff 1000 ng/mL) Performed By: #### D AU ####[address] [address] Barbiturate(s),Ur Negative Normal NEG [facility] Comment on above: Result Comment: (Pos itive cutoff 200 ng/mL) Performed By: #### D AU ####[address] [address] Base excess Negative Normal NEG [facility] Comment on above: Result Comment: (Pos itive cutoff 300 ng/mL) Performed By: #### D AU ####[address] [address] Benzodiazepine(s) Negative Normal NEG [facility] Comment on above: Result Comment: (Pos itive cutoff 200 ng/mL) Performed By: #### D AU ####[address] [address] Cannabinoid(s),Ur Negative Normal NEG [facility] Comment on above: Result Comment: (Pos itive cutoff 50 ng/mL) Performed By: #### D AU ####[address] [address] Interpretive Info Assay provides medical screening only. The absence of expected drug(s) and/or Normal [facility] Comment on above: Result Comment: meta bolite(s) may indicate diluted or adulterated urine, limitations of testing or timing of collection.Testing for legal purposes should be confirmed by another method. To request confirmation of test result, please call the lab within 7 days of sample submission.Performed at [address] [place] [address] Performed By: #### D AU ####[address] [address] Opiate(s), Ur Negative Normal NEG [facility] Comment on above: Result Comment: (Pos itive cutoff 300 ng/mL) Performed By: #### D AU ####[address] [address] Oxycodone, Urine Negative Normal NEG [facility] Comment on above: Result Comment: (Pos itive cutoff 100 ng/mL) Performed By: #### D AU ####[address] [address] Phencyclidine, Ur Negative Normal NEG [facility] Comment on above: Result Comment: (Pos itive cutoff 25 ng/mL) Performed By: #### D AU ####[address] [address] Urine, methadone presence Negative Normal NEG [facility] Comment on above: Result Comment: (Pos itive cutoff 300 ng/mL) Performed By: #### D AU ####[address] [address] Buprenorphrine, Ur NOT REPORTED Normal NEG [facility] Comment on above: Performed By: #### D AU ####[address] [address] MDMA, Urine NOT REPORTED Normal NEG [facility] Comment on above: Performed By: #### D AU ####[address] [place] [address] Methamphetamine, Ur NOT REPORTED Normal NEG [facility] Comment on above: Performed By: #### D AU ####[address] [place] [address] Propoxyphene,Urine NOT REPORTED Normal NEG [facility] Comment on above: Performed By: #### D AU ####[address] [address] Urine, tricyclic antidepressants NOT REPORTED Normal NEG [facility] Comment on above: Performed By: #### D AU ####[address] [address] Lipid Profileon 11-05-2017 Cholesterol 137 mg/dL Normal <200 [facility] Comment on above: Result Comment: Chol esterol Guidelines: <200 Desirable 200-240 Borderline >240 Undesirable Performed By: #### L IPR ####[address] [address] Cholesterol to HDL Ratio 4.3 {ratio} Normal <5 [facility] Comment on above: Performed By: #### L IPR ####[address] [address] HDL Cholesterol 32 mg/dL Low >40 [facility] Comment on above: Result Comment: HDL Guidelines: <40 Undesirable 40-59 Borderline >59 Desirable Performed By: #### L IPR ####[address] [address] LDL Cholesterol 82 mg/dL Normal 0-130 [facility] Comment on above: Result Comment: LDL Guidelines: <100 Desirable 100-129 Near to/above Desirable 130-159 Borderline >159 UndesirableDirect (measured) LDL and calculated LDL are not interchangeable tests. Performed By: #### L IPR ####[address] [address] Triglyceride 113 mg/dL Normal <150 [facility] Comment on above: Result Comment: Trig lyceride Guidelines: <150 Desirable 150- 199 Borderline 200-499 High >499 Very high Based on AHA Guidelines for fasting triglyceride, June 2012.Performed at [facility] [address] [place] [address] Performed By: #### L IPR ####[facility] [place] [address] Cholesterol in VLDL mass conc NOT REPORTED Normal 10-16 [facility] Comment on above: Performed By: #### L IPR ####[facility] [place] [address] Encounters Encounter Date Encounter Type Care Provider [...] ambulatory DR RODO MENCHACA Facility:H1 Start: 10-25-2022 [facility] Facility:H1 Start: 10-11-2022 End: 10-11-[address] CHRISTINE SÁNCHEZ Facility:H1 Start: 09-12-2022 End: 09-13-[address] YOUSIF APARICIO . Facility:H1 Start: 08-19-2022 Encounter for preprocedural laboratory examination DR YOUSIF APARICIO . [facility] Start: 08-18-2022 End: 08-18-[address] [...] ANTHONY PABON [facility] Start: 04-26-2020 End: 04-26-2020 Subsequent hospital visit by physician Rochelle ALFRED Laboratory Start: 03-16-2020 End: 03-17-2020 Emergency department patient [facility] [place] [facility] Start: 11-20-2019 End: 11-21-2019 Patient encounter procedure [place] [facility] Start: 11-20-2019 End: 11-20-2019 Subsequent hospital visit by physician Rochelle ALFRED Laboratory Comment on above: History of miscarria ge, currently ; Amenorrhea; Positive urine test; Encounter for supervision of normal in first trimester, unspecified ; Spotting in early Start: 06-19-2019 End: 06-20-2019 Patient encounter procedure [place] [facility] Start: 06-19-2019 End: 06-19-2019 Subsequent hospital visit by physician Rochelle ALFRED Laboratory Comment on above: Amenorrhea; Positive urine test; Encounter for supervision of normal in first trimester, unspecified ; Spotting in early Start: 05-09-2019 End: 05-10-2019 Patient encounter procedure KADI SCHROEDER [facility] Start: 05-09-2019 End: 05-09-2019 Subsequent hospital visit by physician Rochelle ALFRED Laboratory Start: 11-05-2017 End: 11-07-2017 Evaluation and management of inpatient ANGELO SPICER [facility] Procedures Date Procedure Procedure Detail Performing Clinician Start: 04-26-2020 Acute hepatitis panel D DELLA SCHROEDER Start: 04-26-2020 Antibody hiv-1&hiv-2 single result KADI DESTINY Start: 04-26-2020 Blood count complete automated KADI DESTINY Start: 04-26-2020 Comprehensive metabo lic panel KADI DESTINY Start: 04-26-2020 Gonadotropin chorion ic qualitative KADI DESTINY Start: 04-26-2020 Iadna hepatitis c qu ant & reverse ob gyn physician assistant KADI DESTINY Start: 04-26-2020 Acute hepatitis [...] VIKA SPICER Start: 11-05-2017 Lipid panel ANGELO MILL OILER Start: 11-05-2017 DIET GENERAL ANGELO MILL OILER Start: 11-05-2017 FULL CODE ANGELO MILL OILER Start: 11-05-2017 IP CONSULT TO HISTOR Y [...] deficiency anemia type Expected: 12/12/2021, Expires: 02/11/2022 [facility] Work Phone: Comment on above: Expected: 12/12/2021 , Expires: 02/11/2022 Start: 05-18-2021 Influenza vaccination INFLUENZA (#1) [facility] Start: 06-26-2020 Cervical cancer screen Cervical canc er screen [place], [place] Comment on above: Postponed from 01/11 (Not Indicated) Start: 06-26-2020 Screening for malign ant neoplasm of cervix Cervical cancer screen [place] Comment on above: Postponed from 01/11 (Not Indicated) Start: 05-18-2020 Influenza vaccination Flu vaccine (# 1) [facility] Start: 11-21-2019 End: 11-21-2019 Ancillary Procedure 11/21/2019 Ancillary Procedure Obstetrics and Gynecology [facility] Start: 06-26-2019 End: 06-26-2019 Routine 06/26/2019 Routine Obstetrics and Gynecology Georgette Leung APRN - [address] [place] [address] [phone] [facility] 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 Start: 05-18-2019 Influenza vaccination Flu vaccine (# 1) [place] Start: 2015 Cervical cancer screen Cervical canc er screen [place] Start: 2015 PAP TESTING PAP TESTING [facility] Start: 2013 DTaP/Tdap/Td vaccine (1 - Tdap) DTaP/Tdap/Td vaccine (1 - Tdap) [place] Start: 2013 Urine microalbumin profile DTAP,TDAP,TD (1 - Tdap) [facility] Start: 01-12-2012 HEPATITIS C SCREENING HEPATITIS C SC REENING [facility] Start: 01-12-2012 HIV SCREENING HIV SCREENING [facility] Start: 2009 HPV vaccine (1 - Fem larissa 3-dose series) HPV vaccine (1 - Female 3-dose series) [place] Start: 2007 Varicella Vaccine (1 of 2 - 13+ 2-dose series) Varicella Vaccine (1 of 2 - 13+ 2-dose series) [place] Start: 2006 Adult depression screening assessment DEPRESSION SCREENING [facility] Start: 2005 DTaP/Tdap/Td vaccine (1 - Tdap) DTaP/Tdap/Td vaccine (1 - Tdap) [place] Start: 2005 HPV vaccine (1 - 2-d ose series) HPV vaccine (1 - 2-dose series) [place] Start: 2005 HPV vaccine (1 - Fem larissa 2-dose series) HPV vaccine (1 - Female 2-dose series) [place] Start: 01-12-2000 Pneumococcal 0-64 ye ars Vaccine (1 of 1 - PPSV23) Pneumococcal 0-64 years Vaccine (1 of 1 - PPSV23) [place] Start: 1999 COVID-19 VACCINE (1) COVID-19 VACCIN E (1) [facility] Start: 1995 Varicella vaccine (1 of 2 - 2-dose childhood series) Varicella vaccine (1 of 2 - 2-dose childhood series) [place] End: 11-20-2019 Bacteria identified Cx Nom (U) Urine Culture Microbiology Routine Amenorrhea Positive urine test Encounter for supervision of normal in first trimester, unspecified 1 Occurrences starting 11/20/2019 until 11/20/2019 [place] Comment on above: 1 Occurrences starti ng 11/20/2019 until 11/20/2019 Bacteria identified Cx Nom (U) [place] End: 06-19-2019 Bacteria identified Cx Nom (U) Urine Culture Microbiology Routine Amenorrhea Positive urine test Encounter for supervision of normal in first trimester, unspecified 1 Occurrences starting 06/19/2019 until 06/19/2019 [place] Comment on above: 1 Occurrences starti ng 06/19/2019 until 06/19/2019 End: 11-20-2019 C.trachomatis N.gonorrhoeae DNA, Urine C.trachomatis N.gonorrhoeae DNA, Urine Microbiology Routine Amenorrhea Positive urine test Encounter for supervision of normal in first trimester, unspecified 1 Occurrences starting 11/20/2019 until 11/20/2019 [place] Comment on above: 1 Occurrences starti ng 11/20/2019 until 11/20/2019 C.trachomatis N.gonorrhoeae DNA, Urine [place] End: 06-19-2019 C.trachomatis N.gonorrhoeae DNA, Urine C.trachomatis N.gonorrhoeae DNA, Urine Microbiology Routine Amenorrhea Positive urine test Encounter for supervision of normal in first trimester, unspecified 1 Occurrences starting 06/19/2019 until 06/19/2019 [place] Comment on above: 1 Occurrences starti ng 06/19/2019 until 06/19/2019 End: 04-26-2020 Hepatitis C RNA, quantitative, PCR Hepatitis C RNA, quantitative, PCR Lab Routine Once for 1 Occurrences starting 04/26/2020 until 04/26/2020 [place] Comment on above: Once for 1 Occurrenc es starting 04/26/2020 until 04/26/2020 Hepatitis C RNA, quantitative, PCR Hepatitis C RNA, quantitative, PCR Lab Routine 04/26/2020 7:30 AM EDT [place] End: 05-09-2019 HIV Screen HIV Screen Lab Routine Once for 1 Occurrences starting 05/09/2019 until 05/09/2019 [facility]: Once for 1 Occurrenc es starting 05/09/2019 until 05/09/2019 HIV Screen HIV Screen Lab R outine 05/09/2019 2:53 PM EDT [facility]LE [facility] Lab Routine Amenorrhea Positive urine test Encounter for supervision of normal in first trimester, unspecified 11/20/2019 12:26 PM EST [facility] Payers Date Payer Category Payer Medicaid [place] [employer] [place] [employer] [id number] 2020-Present [phone] [address] [place] [address] Medicaid [id number] 2020 Unknown 2016 Unknown [facility] xxxxxxxxxxxx 2016-Present [phone] [address] [place] [address] xxxxxxxxxxxx [id number] 1994 Unknown [id number] 2..[id number] 1994 Unknown [id number] 2.16.840.1.108062.3.579.2.173 1994 Unknown [id number] 2.16.840.1.233628.3.579.2.173 1994 Unknown [id number] 2.16.840.1.945627.3.579.2.173 1994 Unknown [id number] 2.16.840.1.080870.3.579.2.173 1994 Unknown [id number] 2.16.840.1.883279.3.579.2.593 1994 Unknown [id number] 2.16.840.1.622008.3.579.2.593 1994 Unknown [id number] 2.16.840.1.969262.3.579.2.593 1994 Unknown [id number] 2.16.840.1.205039.3.579.2.593 1994 Unknown [id number] 2.16.840.1.749723.3.579.2.593 1994 Unknown [id number] 2.16.840.1.685070.3.579.2.593 1994 Unknown [id number] 2.16.840.1.577907.3.579.2.593 1994 Unknown [id number] 2.16.840.1.137639.3.579.2.593 1994 Unknown [id number] 2.16.840.1.994821.3.579.2.593 1994 Unknown [id number] 2.16.840.1.261860.3.579.2.593 1994 Unknown [id number] 2.16.840.1.425489.3.579.2.125 9 1994 Unknown [id number] 2.16.840.1.737494.3.579.2.125 9 1994 Unknown [id number] 2.16.840.1.251716.3.579.2.125 9 1994 Unknown [id number] 2.16.840.1.548996.3.579.2.125 9 1959 Unknown [id number] Social History Date Type Detail Facility Start: 11-05-2017 End: 10-28-2021 Tobacco smoking status MOIS Never smoker [facility] Start: 11-05-2017 End: 06-19-2019 Alcohol intake No [place], [place] Start: 1994 Sex Assigned At Not on file M [place] Start: 06-19-2019 End: 11-20-2019 Tobacco smoking status NHIS Current every day smoker [facility] Start: 06-19-2019 End: 11-20-2019 Cigarettes smoked current (pack per day) - Reported [facility] Start: 11-20-2019 Alcohol intake Current non-dr side panel padder of alcohol (finding) [facility] Start: 05-01-2019 Margie hernández [facility] Start: 11-20-2019 End: 10-28-2021 Tobacco use and exposure Never used [facility] Start: 10-28-2021 End: 11-08-2021 Alcohol intake Ex-drinker (finding) [facility] Clinical Note 08-18-2022 Note Date & Type Note Facility 08-18-2022 Note OPERATIVE NOTE OPERATION DATE: 08/18/2022 PROCEDURE: Suction D AND C. PREOPERATIVE DIAGNOSIS: Missed . POSTOPERATIVE DIAGNOSIS: Missed . ANESTHESIA: General. SURGEON: Yousif Aparicio D.O. SLOTTER OPERATOR: None. BLOOD LOSS: 75 mL. URINE [...] products of conception were removed using a 10-Kazakh suction curette. Excellent hemostasis was noted. The patient tolerated the procedure well. Sponge, lap, and needle counts were correct x 2. All instruments were then removed from the patient's vagina. The patient was taken to the Recovery Room in stable condition. ?? [facility] Note 12-12-2021 Telephone Encounter - December - 12/12/2021 11:16 AM EDT Note Date & Type Note Facility 12-12-2021 Miscellaneous Notes Pleases sign pending new cbc order. Thanks, Angelia Almazan MA documented in this encounter [facility] Progress note 11-08-2021 Note Date & Type Note Facility 11-08-2021 Note HNO ID: [id number] Author: King Suazo MD Service: ? Author [...] shortness of breath, and is seen at [place] emergency room. Labs revealed a hemoglobin of [...] biceps/brachioradial/patella/achilles. MUSCULOSKELETAL: Neg (more content not included)... [facility] Evaluation note Note Date & Type Note Facility Evaluation note Diagnosis Iron deficiency anemia, unspecified iron deficiency anemia type- Primary documented in this encounter [facility] Summary Purpose Family History No Family History Records FoundNo Family History Records FoundNo Family History Records FoundNo Family History Records FoundNo Family History Records FoundNo Family History Records Found Advance Directives No Advanced Directives Records FoundDocuments on File Type Date Recorded Patient Representative Government Relations Expl anation Advance Directives and Living Will Power of Special Events Planner Latest Code Status on File Code Status [...] section and content) DATE CREATED AUTHOR 03/08/2018 [facility] DATE CREATED AUTHOR AUTHOR'S ORGANIZ ATION 04/08/2020 [facility] DATE CREATED AUTHOR AUTHOR'S ORGANIZ ATION 04/28/2020 [facility] DATE CREATED AUTHOR AUTHOR'S ORGANIZ ATION 12/13/2021 [facility] DATE CREATED AUTHOR AUTHOR'S ORGANIZ ATION 12/25/2022 [facility] DATE CREATED AUTHOR AUTHOR'S CHERIE MARTINEZ 10/10/2023 [facility] EPIC Source Comments (unrecognize d section and content) In the event this informatio n is protected by the Federal Confidentiality of Alcohol and Drug Abuse Patient Records regulations: The Federal rules restrict any use of the information to criminally investigate or prosecute any alcohol or drug abuse patient.[facility] the event this information is protected by the Federal Confidentiality of Alcohol and Drug Abuse Patient Records regulations: The Federal rules restrict any use of the information to criminally investigate or prosecute any alcohol or drug abuse patient.[facility] Reason for Visit (unrecogniz ed section and content) Reason Comments Lab Orders Care Teams (unrecognized sec tion and content) Custody Officer Relationship Specialty Start Date End Date Rodo Menchaca [address] [place] [address] PCP - General Family Practice 11/08/21 FOR [...] BE BASED ON THE PRIMARY CLINICAL RECORDS. [facility] [employer] provides no warranty or guarantee of the accuracy or completeness of information in this document.
== END 2023-09-21 18:51 | disposition home or self-care (01) ==
LOC: US 07:11 → FBC 17:04
PROVIDERS: Visit Provider Physician Assistant
DX: O41.03X1 Oligohydramnios, third trimester, fetus 1 (principal); Z3A.32 32 weeks gestation of pregnancy
CPT/HCPCS: 76818

== ENCOUNTER 2023-10-09 07:21 | Outpatient (OUT) | payer OTHER, SELFPAY ==
--- OUTSIDE RECORDS SUMMARY | 2023-10-02 07:14 | XMS_ITS | CCD ---
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 Name Role Phone ANGELO SPICER Unavailable Unavailable LIGIA SPICEREEP Unavailable Unavailable ROCHELLE WILLAMS Unavailable Unavailable Rochelle Willams Primary Care Provider Lima Cornell Attending Unavailab le Rochelle Willams Primary Care Provider [phone] KADI DIXON Referring Unavailable ROCHELLE WILLAMS Primary [...] Unavailable NADERER, DR RODO Dickerson Admitting Unavailable [facility] Primary Care Unavaila ble GRECHNY ., ADELITA ORELLANA Consulting Unavailluis CAMARILLO, MYLES Alex Consulting Unavailable GAYE, GURU Consulting Unavailable ALFREDDOYOSEPH, ALIX Consulting Unavailable LINA, KAMILLA Consulting Unavailable SISTER, DANIELA Consulting Unavailable ROBBY ., DR MENENDEZ Consulting Unavailable [facility] Primary Care Unavaila ble ROBBY ., DR MENENDEZ Attending Unavailable ROBBY ., DR MENENDEZ Admitting Unavailable ELENITA, NGOC Consulting Unavailable GEMBUS, AUGUSTUS Consulting Unavailable [facility] Primary Care Unavaila ble ROBBY ., DR MENENDEZ Consulting Unavailable ROBBY ., DR MENENDEZ Attending Unavailable ROBBY ., DR MENENDEZ Admitting Unavailable ZIEBER, DR CHRISTINE Benites Consulting Unavailable ROBBY ., DR MENENDEZ Consulting Unavailable [facility] Primary Care Unavaila ble ROBBY ., DR [...] Propensity to adverse reactions to drug (disorder) [facility] Repository Medications Current Medications Medication Drug [...] Onset: 11-05-2017 Other aftercare (1 source) 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 Hemanth Kerr CBC AUTO DIFFon 11-29-2022 BASO # 0.0 103/ul Normal 0.0-0.1 [facility] Comment on above: Performed By: #### C BC #### [facility] [address] [address] [address] Hemanth Kerr Basophils/100 WBC (Bld) 0.7 % Normal 0.2-2.0 [facility] Comment on above: Performed By: #### C BC #### [facility] [address] [address] [address] Hemanth Kerr EO # 0.2 103/ul Normal 0.0-0.7 [facility] Comment on above: Performed By: #### C BC #### [facility] [address] [address] [address] Hemanth Kerr Eosinophils/100 WBC (Bld) 3.3 % Normal 0.9-7.0 [facility] Comment on above: Performed By: #### C BC #### [facility] [address] [place] [address] Dr. Hemanth Kerr Erythrocyte distribution width (RBC) [Ratio] 14.3 % Normal 11.0-15.0 [facility] Comment on above: Performed By: #### C BC #### [facility] [address] [place] [address] Dr. Hemanth Kerr Hematocrit (Bld) [Volume fraction] 37.2 % Normal 36.0-48.0 [facility] Comment on above: Performed By: #### C BC #### [facility] [address] [place] [address] Dr. Hemanth Kerr Hemoglobin (Bld) [Mass/Vol] 11.9 g/dL Critically low 12.0-16.0 [facility] Comment on above: Performed By: #### C BC #### [facility] [address] [place] [address] Dr. Hemanth Kerr IG # 0.01 10e3/ul Normal 0.00-0.03 [facility] Comment on above: Performed By: #### C BC #### [facility] [address] [address] [address] Hemanth Kerr IG % 0.2 % Normal 0.0-0.5 [facility] Comment on above: Performed By: #### C BC #### [facility] [address] [place] [address] Dr. Hemanth Kerr LYMPH # 1.7 103/ul Normal 1.2-3.8 [facility] Comment on above: Performed By: #### C BC #### [facility] [address] [place] [address] Dr. Hemanth Kerr Lymphocytes/100 WBC (Bld) 31.3 % Normal 20.5-60.0 [facility] Comment on above: Performed By: #### C BC #### [facility] [address] [place] [address] Dr. Hemanth Kerr MANUAL DIFF REQ NO Normal [facility] Comment on above: Performed By: #### C BC #### [facility] [address] [place] [address] Dr. Hemanth Kerr MCH (RBC) [Entitic mass] 27.8 pg Normal 26.7-34.0 [facility] Comment on above: Performed By: #### C BC #### [facility] [address] [place] [address] Dr. Hemanth Kerr MCHC (RBC) [Mass/Vol] 32.0 g/dL Normal 29.9-35.2 [facility] Comment on above: Performed By: #### C BC #### [facility] [address] [place] [address] Dr. Hemanth Kerr MCV (RBC) [Entitic vol] 86.9 fL Normal 81.0-99.0 [facility] Comment on above: Performed By: #### C BC #### [facility] [address] [place] [address] Dr. Hemanth Kerr MONO # 0.4 103/ul Normal 0.3-0.8 [facility] Comment on above: Performed By: #### C BC #### [facility] [address] [place] [address] Dr. Hemanth Kerr Monocytes/100 WBC (Bld) 8.0 % Normal 1.7-12.0 [facility] Comment on above: Performed By: #### C BC #### [facility] [address] [place] [address] Dr. Hemanth Kerr NEUT # 3.1 103/ul Normal 1.4-6.5 [facility] Comment on above: Performed By: #### C BC #### [facility] [address] [place] [address] Dr. Hemanth Kerr Neutrophils/100 WBC (Bld) 56.5 % Normal 43.0-75.0 [facility] Comment on above: Performed By: #### C BC #### [facility] [address] [place] [address] Dr. Hemanth Kerr Platelet mean volume (Bld) [Entitic vol] 10.3 fL Normal 9.5-13.5 [facility] Comment on above: Performed By: #### C BC #### [facility] [address] [place] [address] Dr. Hemanth Kerr PLT 258 103/ul Normal 150-450 [facility] Comment on above: Performed By: #### C BC #### [facility] [address] [place] [address] Dr. Hemanth Kerr RBC 4.28 106/ul Normal 4.20-5.40 [facility] Comment on above: Performed By: #### C BC #### [facility] [address] [place] [address] Dr. Hemanth Kerr WBC 5.4 103/ul Normal 4.0-11.0 [facility] Comment on above: Performed By: #### C BC #### [facility] [address] [place] [address] Dr. Hemanth Kerr PROF 14(COMP METB)on 023 Albumin [Mass/Vol] 3.1 g/dL Critically low 3.4-5.0 [facility] Comment on above: Performed By: #### C MP #### [facility] [address] [place] [address] Dr. Hemanth Kerr Albumin/Globulin [Mass ratio] 1.3 {ratio} Normal [facility] Comment on above: Performed By: #### C MP #### [facility] [address] [address] [address] Hemanth Kerr ALP [Catalytic activity/Vol] 56 U/L Normal 46-116 [facility] Comment on above: Performed By: #### C MP #### [facility] [address] [address] [address] Hemanth Kerr ALT [Catalytic activity/Vol] 34 U/L Normal 14-59 [facility] Comment on above: Performed By: #### C MP #### [facility] [address] [place] [address] Dr. Hemanth Kerr Anion gap [Moles/Vol] 7.0 mmol/L Normal [facility] Comment on above: Performed By: #### C MP #### [facility] [address] [place] [address] Dr. Hemanth Kerr AST [Catalytic activity/Vol] 29 U/L Normal 15-37 [facility] Comment on above: Performed By: #### C MP #### [facility] [address] [place] [address] Dr. Hemanth Kerr Bilirubin [Mass/Vol] 0.4 mg/dL Normal 0.2-1.0 [facility] Comment on above: Performed By: #### C MP #### [facility] [address] [place] [address] Dr. Hemanth Kerr Calcium [Mass/Vol] 8.3 mg/dL Critically low 8.5-10.1 [facility] Comment on above: Performed By: #### C MP #### [facility] [address] [place] [address] Dr. Hemanth Kerr Chloride [Moles/Vol] 110 mmol/L Critically high 98-107 [facility] Comment on above: Performed By: #### C MP #### [facility] [address] [place] [address] Dr. Hemanth Kerr CO2 [Moles/Vol] 27.6 mmol/L Normal 21.0-32.0 [facility] Comment on above: Performed By: #### C MP #### [facility] [address] [place] [address] Dr. Hemanth Kerr Creatinine [Mass/Vol] 0.61 mg/dL Normal 0.55-1.02 [facility] Comment on above: Performed By: #### C MP #### [facility] [address] [address] [address] Hemanth Kerr EGFR-AF KOSOVAN >60 Normal >=60 [facility] Comment on above: Performed By: #### C MP #### [facility] [address] [address] [address] Hemanth Kerr EGFR-NON AF KOSOVAN >60 Normal >=60 [facility] Comment on above: Performed By: #### C MP #### [facility] [address] [address] [address] Hemanth Kerr Globulin (S) [Mass/Vol] 2.4 g/dL Normal [facility] Comment on above: Performed By: #### C MP #### [facility] [address] [place] [address] Dr. Hemanth Kerr Glucose [Mass/Vol] 110 mg/dL Critically high 74-106 [facility] Comment on above: Performed By: #### C MP #### [facility] [address] [address] [address] Hemanth Kerr Potassium [Moles/Vol] 2.6 mmol/L Critically low 3.5-5.1 [facility] Comment on above: Performed By: #### C MP #### [facility] [address] [place] [address] Dr. Hemanth Kerr Protein [Mass/Vol] 5.5 g/dL Critically low 6.4-8.2 [facility] Comment on above: Performed By: #### C MP #### [facility] [address] [address] [address] Hemanth Kerr Sodium [Moles/Vol] 142 mmol/L Normal 136-145 [facility] Comment on above: Performed By: #### C MP #### [facility] [address] [place] [address] Dr. Hemanth Kerr Urea nitrogen [Mass/Vol] 12.0 mg/dL Normal 7.0-18.0 [facility] Comment on above: Performed By: #### C MP #### [facility] [address] [address] [address] Hemanth Kerr Urea nitrogen/Creatinine [Mass ratio] 19.7 mg/mg Normal [facility] Comment on above: Performed By: #### C MP #### [facility] [address] [address] [address] Hemanth Kerr XR HIP LT 2 [...] Date: 2022-11-28 22:13 Normal [facility] ACETAMINOPHENon 11-28-2022 Acetaminophen [Mass/Vol] ug/mL Critically low 10.0-30.0 [facility] Comment on above: Performed By: #### C MP #### [facility] [address] [address] [address] Hemanth Kerr ACETONE SERUMon 11-28-2022 ACETONE Negative Normal NEGATIVE [facility] Comment on above: Performed By: #### P REG #### [facility] [address] [address] [address] Hemanth Kerr AMMONIAon 11-28-2022 Ammonia (P) [Moles/Vol] 24 umol/L Normal 11-32 [facility] Comment on above: Performed By: #### L ACT #### [facility] [address] [address] [address] Hemanth Kerr CBC AUTO DIFFon 11-28-2022 BASO # 0.0 103/ul Normal 0.0-0.1 [facility] Comment on above: Performed By: #### L ACT #### [facility] [address] [address] [address] Hemanth Kerr Basophils/100 WBC (Bld) 0.4 % Normal 0.2-2.0 [facility] Comment on above: Performed By: #### L ACT #### [facility] [address] [place] [address] Dr. Hemanth Kerr EO # 0.3 103/ul Normal 0.0-0.7 [facility] Comment on above: Performed By: #### L ACT #### [facility] [address] [place] [address] Dr. Hemanth Kerr Eosinophils/100 WBC (Bld) 3.1 % Normal 0.9-7.0 [facility] Comment on above: Performed By: #### L ACT #### [facility] [address] [place] [address] Dr. Hemanth Kerr Erythrocyte distribution width (RBC) [Ratio] 14.3 % Normal 11.0-15.0 [facility] Comment on above: Performed By: #### L ACT #### [facility] [address] [place] [address] Dr. Hemanth Kerr Hematocrit (Bld) [Volume fraction] 41.3 % Normal 36.0-48.0 [facility] Comment on above: Performed By: #### L ACT #### [facility] [address] [place] [address] Dr. Hemanth Kerr Hemoglobin (Bld) [Mass/Vol] 13.3 g/dL Normal 12.0-16.0 [facility] Comment on above: Performed By: #### L ACT #### [facility] [address] [place] [address] Dr. Hemanth Kerr IG # 0.02 10e3/ul Normal 0.00-0.03 [facility] Comment on above: Performed By: #### L ACT #### [facility] [address] [place] [address] Dr. Hemanth Kerr IG % 0.2 % Normal 0.0-0.5 [facility] Comment on above: Performed By: #### L ACT #### [facility] [address] [place] [address] Dr. Hemanth Kerr LYMPH # 2.4 103/ul Normal 1.2-3.8 [facility] Comment on above: Performed By: #### L ACT #### [facility] [address] [place] [address] Dr. Hemanth Kerr Lymphocytes/100 WBC (Bld) 26.3 % Normal 20.5-60.0 [facility] Comment on above: Performed By: #### L ACT #### [facility] [address] [place] [address] Dr. Hemanth Kerr MANUAL DIFF REQ NO Normal [facility] Comment on above: Performed By: #### L ACT #### [facility] [address] [place] [address] Dr. Hemanth Kerr MCH (RBC) [Entitic mass] 27.4 pg Normal 26.7-34.0 [facility] Comment on above: Performed By: #### L ACT #### [facility] [address] [place] [address] Dr. Hemanth Kerr MCHC (RBC) [Mass/Vol] 32.2 g/dL Normal 29.9-35.2 [facility] Comment on above: Performed By: #### L ACT #### [facility] [address] [place] [address] Dr. Hemanth Kerr MCV (RBC) [Entitic vol] 85.0 fL Normal 81.0-99.0 [facility] Comment on above: Performed By: #### L ACT #### [facility] [address] [place] [address] Dr. Hemanth Kerr MONO # 0.7 103/ul Normal 0.3-0.8 [facility] Comment on above: Performed By: #### L ACT #### [facility] [address] [place] [address] Dr. Hemanth Kerr Monocytes/100 WBC (Bld) 7.3 % Normal 1.7-12.0 [facility] Comment on above: Performed By: #### L ACT #### [facility] [address] [place] [address] Dr. Hemanth Kerr NEUT # 5.7 103/ul Normal 1.4-6.5 [facility] Comment on above: Performed By: #### L ACT #### [facility] [address] [address] [address] Hemanth Kerr Neutrophils/100 WBC (Bld) 62.7 % Normal 43.0-75.0 [facility] Comment on above: Performed By: #### L ACT #### [facility] [address] [address] [address] Hemanth Kerr Platelet mean volume (Bld) [Entitic vol] 10.6 fL Normal 9.5-13.5 [facility] Comment on above: Performed By: #### L ACT #### [facility] [address] [place] [address] Dr. Hemanth Kerr PLT 347 103/ul Normal 150-450 [facility] Comment on above: Performed By: #### L ACT #### [facility] [address] [place] [address] Dr. Hemanth Kerr RBC 4.86 106/ul Normal 4.20-5.40 [facility] Comment on above: Performed By: #### L ACT #### [facility] [address] [place] [address] Dr. Hemanth Kerr WBC 9.1 103/ul Normal 4.0-11.0 [facility] Comment on above: Performed By: #### L ACT #### [facility] [address] [place] [address] CSPINE WO CONon [...] Date: 2022-11-28 17:54 Normal [facility] CT HEAD WO CONon 11-28-2022 CT HEAD [...] Date: 2022-11-28 18:40 Normal [facility] CULTURE BLOODon 11-28-2022 Microscopic examination of blood, culture Culture Observations: NO GROWTH AT 5 DAYS. Normal [facility] Comment on above: Performed By: #### C BC #### [facility] [address] [address] [address] Hemanth Kerr Microscopic examination of blood, culture Culture Observations: NO GROWTH AT 5 DAYS. Normal [facility] Comment on above: Performed By: #### B [id number] #### [facility] [address] [place] [address] Dr. Hemanth Kerr Covid-19 PCR ([facility])on 11-15 SARS-CoV-2 (COVID-19) RNA ELMO+probe Ql (Unsp spec) Not detected Normal NOT DETECTED [facility] Comment on above: Result Comment: When diagnostic [...] for this test is supported by the [place] of Health and Human Service's declaration that [...] By: #### L ACT #### [facility] [address] [place] [address] Dr. Hemanth Kerr DRUG SCREEN RAPID (URINE)on 11-28-2022 AMP Positive Abnormal NEGATIVE [facility] Comment on above: Performed By: #### P REG #### [facility] [address] [place] [address] Dr. Hemanth Kerr BAR Negative Normal NEGATIVE [facility] Comment on above: Performed By: #### P REG #### [facility] [address] [place] [address] Dr. Hemanth Kerr BUP Negative Normal NEGATIVE [facility] Comment on above: Performed By: #### P REG #### [facility] [address] [place] [address] Dr. Hemanth Kerr BZO Negative Normal NEGATIVE [facility] Comment on above: Performed By: #### P REG #### [facility] [address] [place] [address] Dr. Hemanth Kerr YOLANDA Negative Normal NEGATIVE [facility] Comment on above: Performed By: #### P REG #### [facility] [address] [place] [address] Dr. Hemanth Kerr CUT-OFFS SEE BELOW Normal [facility] Comment on above: Result Comment: AMP (Amphetamine): [...] By: #### P REG #### [facility] [address] [place] [address] Dr. Hemanth Kerr DRUG CUT HEADER DRUG CLASS TEST SYSTEM CUT-OFF CONCENTRATIONS ARE FOLLOWS: Normal [facility] Comment on above: Performed By: #### P REG #### [facility] [address] [place] [address] Dr. Hemanth Kerr mAMP Positive Abnormal NEGATIVE [facility] Comment on above: Performed By: #### P REG #### [facility] [address] [place] [address] Dr. Hemanth Kerr MTD Negative Normal NEGATIVE [facility] Comment on above: Performed By: #### P REG #### [facility] [address] [place] [address] Dr. Hemanth Kerr OPI Negative Normal NEGATIVE [facility] Comment on above: Performed By: #### P REG #### [facility] [address] [place] [address] Dr. Hemanth Kerr OXY Negative Normal NEGATIVE [facility] Comment on above: Performed By: #### P REG #### [facility] [address] [place] [address] Dr. Hemanth Kerr PCP Negative Normal NEGATIVE [facility] Comment on above: Performed By: #### P REG #### [facility] [address] [place] [address] Dr. Hemanth Kerr PPX Negative Normal NEGATIVE [facility] Comment on above: Performed By: #### P REG #### [facility] [address] [address] [address] Hemanth Kerr TCA Negative Normal NEGATIVE [facility] Comment on above: Performed By: #### P REG #### [facility] [address] [place] [address] Dr. Hemanth Kerr THC Negative Normal NEGATIVE [facility] Comment on above: Performed By: #### P REG #### [facility] [address] [place] [address] Dr. Hemanth Kerr ER URINE PROFILEon 3 Bilirubin Ql (U) Negative Normal NEGATIVE [facility] Comment on above: Performed By: #### P REG #### [facility] [address] [place] [address] Dr. Hemanth Kerr Clarity (U) CLEAR Normal CLEAR [facility] Comment on above: Performed By: #### P REG #### [facility] [address] [place] [address] Dr. Hemanth Kerr Color (U) LT. YELLOW Normal YELLOW [facility] Comment on above: Performed By: #### P REG #### [facility] [address] [place] [address] Dr. Hemanth Kerr ERUAbi A micrscopic examination will be performed if indicated. Normal [facility] Comment on above: Performed By: #### P REG #### [facility] [address] [place] [address] Dr. Hemanth Kerr Glucose Ql (U) Negative Normal NEGATIVE [facility] Comment on above: Performed By: #### P REG #### [facility] [address] [place] [address] Dr. Hemanth Kerr Hemoglobin Ql (U) Negative Normal NEGATIVE [facility] Comment on above: Performed By: #### P REG #### [facility] [address] [place] [address] Dr. Hemanth Kerr Ketones Ql (U) Negative Normal NEGATIVE [facility] Comment on above: Performed By: #### P REG #### [facility] [address] [place] [address] Dr. Hemanth Kerr LEUKOCYTES Negative Normal NEGATIVE [facility] Comment on above: Performed By: #### P REG #### [facility] [address] [place] [address] Dr. Hemanth Kerr Nitrite Ql (U) Positive Abnormal NEGATIVE [facility] Comment on above: Performed By: #### P REG #### [facility] [address] [place] [address] Dr. Hemanth Kerr pH (U) 7.5 [pH] Normal 5-9 [facility] Comment on above: Performed By: #### P REG #### [facility] [address] [place] [address] Dr. Hemanth Kerr SPEC GRAVITY 1.020 Normal 1.005-<=1.025 [facility] Comment on above: Performed By: #### P REG #### [facility] [address] [place] [address] Dr. Hemanth Kerr UA PROTEIN TRACE Normal NEGATIVE/ TRACE [facility] Comment on above: Performed By: #### P REG #### [facility] [address] [place] [address] Dr. Hemanth Kerr UR MICRO IND INDICATED Normal [facility] Comment on above: Performed By: #### P REG #### [facility] [address] [place] [address] Dr. Hemanth Kerr Urobilinogen Qn (U) 1.0 {Jose'U}/dL Normal 0.2 - 1. 0 [facility] Comment on above: Performed By: #### P REG #### [facility] [address] [place] [address] Dr. Hemanth Kerr ETHANOL (BLD ALC)on 11-29-19 23 ALC NOTE NOTE: 80 mg/dl is th e legal limit for a blood alcohol level Normal [facility] Comment on above: Performed By: #### C MP #### [facility] [address] [place] [address] Dr. Hemanth Kerr Ethanol [Mass/Vol] mg/dL Normal [facility] Comment on above: Performed By: #### C MP #### [facility] [address] [place] [address] Dr. Hemanth Kerr LACTATE/LACTIC ACIDon 2022 Lactate [Moles/Vol] 0.7 mmol/L Normal 0.4-2.0 [facility] Comment on above: Performed By: #### L ACT #### [facility] [address] [address] [address] Hemanth Kerr Lactate [Moles/Vol] 9.0 mmol/L Critically high 0.4-2.0 [facility] Comment on above: Performed By: #### L ACT #### [facility] [address] [address] [address] Hemanth Kerr PH VENOUS BLOODon 11-28-2022 PCO2 VENOUS 36.6 mmHg Critically low 40.0-52.0 [facility] Comment on above: Performed By: #### P HVEN #### [facility] [address] [place] [address] Dr. Hemanth Kerr pH VENOUS 7.354 Normal 7.330-7.430 [facility] Comment on above: Performed By: #### P HVEN #### [facility] [address] [place] [address] Dr. Hemanth Kerr POINT OF CARE GLUCOSEon 11-15 Glucose [Mass/Vol] 127 mg/dL Critically high 74-106 [facility] Comment on above: Performed By: #### C BC #### [facility] [address] [place] [address] Dr. Hemanth Kerr PREG HCG QUALon 11-28-2022 , QUAL Negative Normal NEGATIVE [facility] Comment on above: Performed By: #### P REG #### [facility] [address] [place] [address] Dr. Hemanth Kerr PROF 14(COMP METB)on 023 Albumin [Mass/Vol] 3.7 g/dL Normal 3.4-5.0 [facility] Comment on above: Performed By: #### L ACT #### [facility] [address] [place] [address] Dr. Hemanth Kerr Albumin/Globulin [Mass ratio] 1.3 {ratio} Normal [facility] Comment on above: Performed By: #### L ACT #### [facility] [address] [address] [address] Hemanth Kerr ALP [Catalytic activity/Vol] 72 U/L Normal 46-116 [facility] Comment on above: Performed By: #### L ACT #### [facility] [address] [address] [address] Hemanth Kerr ALT [Catalytic activity/Vol] 42 U/L Normal 14-59 [facility] Comment on above: Performed By: #### L ACT #### [facility] [address] [address] [address] Hemanth Kerr Anion gap [Moles/Vol] 16.3 mmol/L Normal [facility] Comment on above: Performed By: #### L ACT #### [facility] [address] [place] [address] Dr. Hemanth Kerr AST [Catalytic activity/Vol] 45 U/L Critically high 15-37 [facility] Comment on above: Performed By: #### L ACT #### [facility] [address] [place] [address] Dr. Hemanth Kerr Bilirubin [Mass/Vol] 0.4 mg/dL Normal 0.2-1.0 [facility] Comment on above: Performed By: #### L ACT #### [facility] [address] [place] [address] Dr. Hemanth Kerr Calcium [Mass/Vol] 8.8 mg/dL Normal 8.5-10.1 [facility] Comment on above: Performed By: #### L ACT #### [facility] [address] [place] [address] Dr. Hemanth Kerr Chloride [Moles/Vol] 107 mmol/L Normal 98-107 [facility] Comment on above: Performed By: #### L ACT #### [facility] [address] [address] [address] Hemanth Kerr CO2 [Moles/Vol] 21.8 mmol/L Normal 21.0-32.0 [facility] Comment on above: Performed By: #### L ACT #### [facility] [address] [address] [address] Hemanth Kerr Creatinine [Mass/Vol] 1.32 mg/dL Critically high 0.55-1.02 [facility] Comment on above: Performed By: #### L ACT #### [facility] [address] [address] [address] Hemanth Kerr EGFR-AF KOSOVAN 58 mL/min/1.73m2 Critically low >=60 [facility] Comment on above: Performed By: #### L ACT #### [facility] [address] [address] [address] Hemanth Kerr EGFR-NON AF KOSOVAN 48 mL/min/1.73m2 Critically low >=60 [facility] Comment on above: Performed By: #### L ACT #### [facility] [address] [place] [address] Dr. Hemanth Kerr Globulin (S) [Mass/Vol] 2.9 g/dL Normal [facility] Comment on above: Performed By: #### L ACT #### [facility] [address] [address] [address] Hemanth Kerr Glucose [Mass/Vol] 143 mg/dL Critically high 74-106 [facility] Comment on above: Performed By: #### L ACT #### [facility] [address] [address] [address] Hemanth Kerr Potassium [Moles/Vol] 3.1 mmol/L Critically low 3.5-5.1 [facility] Comment on above: Performed By: #### L ACT #### [facility] [address] [address] [address] Hemanth Kerr Protein [Mass/Vol] 6.6 g/dL Normal 6.4-8.2 [facility] Comment on above: Performed By: #### L ACT #### [facility] [address] [address] [address] Hemanth Kerr Sodium [Moles/Vol] 142 mmol/L Normal 136-145 [facility] Comment on above: Performed By: #### L ACT #### [facility] [address] [address] [address] Hemanth Kerr Urea nitrogen [Mass/Vol] 17.0 mg/dL Normal 7.0-18.0 [facility] Comment on above: Performed By: #### L ACT #### [facility] [address] [place] [address] Dr. Hemanth Kerr Urea nitrogen/Creatinine [Mass ratio] 12.9 mg/mg Normal [facility] Comment on above: Performed By: #### L ACT #### [facility] [address] [place] [address] Dr. Hemanth Kerr PROTIMEon 11-28-2022 INR Coag (PPP) [Relative time] 0.97 {INR} Normal [facility] Comment on above: Performed By: #### P T, PTT #### [facility] [address] [place] [address] Dr. Hemanth Kerr INR GUIDELINES SEE BELOW Normal [facility] Comment on above: Result Comment: CHAN RED INR: 2.0 - 3.0 CONDITIONS NOT LISTED BELOW 2.5 - 3.5 FOR PROSTHETIC HEART VALVE REPLACEMENT 2.5 - 3.5 RECURRENT THROMBOSIS Performed By: #### P T, PTT #### [facility] [address] [place] [address] Dr. Hemanth Kerr PT Coag (PPP) [Time] 10.3 s Normal 9.0-11.6 [facility] Comment on above: Performed By: #### P T, PTT #### [facility] [address] [place] [address] Dr. Hemanth Kerr PTTon 11-28-2022 aPTT Coag (Bld) [Time] 25.4 s Normal 22.3-36.2 [facility] Comment on above: Performed By: #### P T, PTT #### [facility] [address] [place] [address] Dr. Hemanth Kerr SALICYLATEon 11-28-2022 SALICYLATE <2.8 Normal <=19.9 [facility] Comment on above: Performed By: #### C MP #### [facility] [address] [place] [address] Dr. Hemanth Kerr TROPONIN, HIGH SENSITIVITYon 11-28-2022 HSTROP 4.2 pg/mL Normal 4.0-51.3 [facility] Comment on above: Result Comment: CUT- OFF POINTS HAVE BEEN ESTABLISHED BASED ON THE FOURTH UNIVERSAL DEFINITIONS OF MYOCARDIAL INFARCTION. THE UPPER REFERENCE LIMIT (URL) OF TROPONIN, DEFINED THE 99TH PERCENTILE OF cTnI DISTRIBUTION IN A REFERENCE POPULATION, HAS BEEN CONFIRMED THE DECISION THRESHOLD FOR LA DIAGNOSIS. Performed By: #### C MP #### [facility] [address] [place] [address] Dr. Hemanth Kerr TSHon 11-28-2022 TSH 3.476 uIU/mL Normal 0.358-3.740 [facility] Comment on above: Performed By: #### L ACT #### [facility] [address] [place] [address] Dr. Hemanth Kerr URINE MICROSCOPIC ONLYon BACTERIA LARGE Abnormal NONE SEEN [facility] Comment on above: Performed By: #### P REG #### [facility] [address] [place] [address] Dr. Hemanth Kerr Bacteria identified Cx Nom (U) INDICATED Normal [facility] Comment on above: Performed By: #### P REG #### [facility] [address] [place] [address] Dr. Hemanth Kerr CAST SEEN Abnormal NONE SEEN [facility] Comment on above: Performed By: #### P REG #### [facility] [address] [place] [address] Dr. Hemanth Kerr COARSE GRANULAR CAST RARE Normal [facility] Comment on above: Performed By: #### P REG #### [facility] [address] [place] [address] Dr. Hemanth Kerr Crystals LM Nom (Urine sed) NONE SEEN Normal NONE SEEN [facility] Comment on above: Performed By: #### P REG #### [facility] [address] [place] [address] Dr. Hemanth Kerr Epithelial cells LM Ql (Urine sed) RARE Normal NONE SEEN /RARE [facility] Comment on above: Performed By: #### P REG #### [facility] [address] [place], [place] [id number] Dr. Hemanth Kerr MUCOUS NONE SEEN Normal NONE SEEN [facility] Comment on above: Performed By: #### P REG #### [facility] [address] [place] [address] Dr. Hemanth Kerr RBC 0-2 Normal 0-2 [facility] Comment on above: Performed By: #### P REG #### [facility] [address] [place] [address] Dr. Hemanth Kerr WBC 2-5 Abnormal NONE SEEN [facility] Comment on above: Performed By: #### P REG #### [facility] [address] [place] [address] Dr. Hemanth Kerr XR CHEST 1 Von [...] Date: 2022-11-28 17:39 Normal [facility] CULTURE URINEon 10-13-2022 CULTURE URINE Isolate 1 [...] >=320 R F Normal [facility] Comment on above: Performed By: #### U RCX #### [facility] [address] [address] [address] Hemanth Kerr CBC AUTO DIFFon 10-11-2022 BASO # 0.0 103/ul Normal 0.0-0.1 [facility] Comment on above: Performed By: #### C BC #### [facility] [address] [address] [address] Hemanth Kerr Basophils/100 WBC (Bld) 0.3 % Normal 0.2-2.0 [facility] Comment on above: Performed By: #### C BC #### [facility] [address] [address] [address] Hemanth Kerr EO # 0.0 103/ul Normal 0.0-0.7 [facility] Comment on above: Performed By: #### C BC #### [facility] [address] [place] [address] Dr. Hemanth Kerr Eosinophils/100 WBC (Bld) 0.4 % Critically low 0.9-7.0 [facility] Comment on above: Performed By: #### C BC #### [facility] [address] [place] [address] Dr. Hemanth Kerr Erythrocyte distribution width (RBC) [Ratio] 12.2 % Normal 11.0-15.0 [facility] Comment on above: Performed By: #### C BC #### [facility] [address] [place] [address] Dr. Hemanth Kerr Hematocrit (Bld) [Volume fraction] 38.6 % Normal 36.0-48.0 [facility] Comment on above: Performed By: #### C BC #### [facility] [address] [place] [address] Dr. Hemanth Kerr Hemoglobin (Bld) [Mass/Vol] 12.0 g/dL Normal 12.0-16.0 [facility] Comment on above: Performed By: #### C BC #### [facility] [address] [place] [address] Dr. Hemanth Kerr IG # 0.07 10e3/ul Critically high 0.00-0.03 [facility] Comment on above: Performed By: #### C BC #### [facility] [address] [place] [address] Dr. Hemanth Kerr IG % 0.7 % Critically high 0.0-0.5 [facility] Comment on above: Performed By: #### C BC #### [facility] [address] [place] [address] Dr. Hemanth Kerr LYMPH # 1.2 103/ul Normal 1.2-3.8 [facility] Comment on above: Performed By: #### C BC #### [facility] [address] [place] [address] Dr. Hemanth Kerr Lymphocytes/100 WBC (Bld) 12.1 % Critically low 20.5-60.0 [facility] Comment on above: Performed By: #### C BC #### [facility] [address] [place] [address] Dr. Hemanth Kerr MANUAL DIFF REQ NO Normal [facility] Comment on above: Performed By: #### C BC #### [facility] [address] [place] [address] Dr. Hemanth Kerr MCH (RBC) [Entitic mass] 28.0 pg Normal 26.7-34.0 [facility] Comment on above: Performed By: #### C BC #### [facility] [address] [place] [address] Dr. Hemanth Kerr MCHC (RBC) [Mass/Vol] 31.1 g/dL Normal 29.9-35.2 [facility] Comment on above: Performed By: #### C BC #### [facility] [address] [place] [address] Dr. Hemanth Kerr MCV (RBC) [Entitic vol] 90.2 fL Normal 81.0-99.0 [facility] Comment on above: Performed By: #### C BC #### [facility] [address] [place] [address] Dr. Hemanth Kerr MONO # 0.7 103/ul Normal 0.3-0.8 [facility] Comment on above: Performed By: #### C BC #### [facility] [address] [address] [address] Hemanth Kerr Monocytes/100 WBC (Bld) 6.9 % Normal 1.7-12.0 [facility] Comment on above: Performed By: #### C BC #### [facility] [address] [address] [address] Hemanth Kerr NEUT # 8.1 103/ul Critically high 1.4-6.5 [facility] Comment on above: Performed By: #### C BC #### [facility] [address] [address] [address] Hemanth Kerr Neutrophils/100 WBC (Bld) 79.6 % Critically high 43.0-75.0 [facility] Comment on above: Performed By: #### C BC #### [facility] [address] [place] [address] Dr. Hemanth Kerr Platelet mean volume (Bld) [Entitic vol] 10.8 fL Normal 9.5-13.5 [facility] Comment on above: Performed By: #### C BC #### [facility] [address] [address] [address] Hemanth Kerr PLT 452 103/ul Critically high 150-450 [facility] Comment on above: Performed By: #### C BC #### [facility] [address] [address] [address] Hemanth Kerr RBC 4.28 106/ul Normal 4.20-5.40 [facility] Comment on above: Performed By: #### C BC #### [facility] [address] [address] [address] Hemanth Kerr WBC 10.1 103/ul Normal 4.0-11.0 [facility] Comment on above: Performed By: #### C BC #### [facility] [address] [place] [address] ABD/PELVIS WO CONon [...] by: CHRISTINE SÁNCHEZ Date: 2022-10-11 14:45 Normal [facility] ER URINE PROFILEon 3 Bilirubin Ql (U) Negative Normal NEGATIVE [facility] Comment on above: Performed By: #### L ACT #### [facility] [address] [place] [address] Dr. Hemanth Kerr Clarity (U) CLEAR Normal CLEAR [facility] Comment on above: Performed By: #### L ACT #### [facility] [address] [address] [address] Hemanth Kerr Color (U) LT. YELLOW Normal YELLOW [facility] Comment on above: Performed By: #### L ACT #### [facility] [address] [place] [address] Dr. Hemanth Kerr ERUAHD A micrscopic examination will be performed if indicated. Normal [facility] Comment on above: Performed By: #### L ACT #### [facility] [address] [address] [address] Hemanth Kerr Glucose Ql (U) Negative Normal NEGATIVE [facility] Comment on above: Performed By: #### L ACT #### [facility] [address] [address] [address] Hemanth Kerr Hemoglobin Ql (U) LARGE Abnormal NEGATIVE [facility] Comment on above: Performed By: #### L ACT #### [facility] [address] [address] [address] Hemanth Kerr Ketones Ql (U) Negative Normal NEGATIVE [facility] Comment on above: Performed By: #### L ACT #### [facility] [address] [place] [address] Dr. Hemanth Kerr LEUKOCYTES SMALL Abnormal NEGATIVE [facility] Comment on above: Performed By: #### L ACT #### [facility] [address] [place] [address] Dr. Hemanth Kerr Nitrite Ql (U) Negative Normal NEGATIVE [facility] Comment on above: Performed By: #### L ACT #### [facility] [address] [address] [address] Hemanth Kerr pH (U) 6.5 [pH] Normal 5-9 [facility] Comment on above: Performed By: #### L ACT #### [facility] [address] [place] [address] Dr. Hemanth Kerr Protein (U) [Mass/Vol] 30 mg/dL Abnormal NEGATIVE/ TRACE [facility] Comment on above: Performed By: #### L ACT #### [facility] [address] [place] [address] Dr. Hemanth Kerr SPEC GRAVITY <=1.005 Abnormal 1.005-<=1.025 [facility] Comment on above: Performed By: #### L ACT #### [facility] [address] [place] [address] Dr. Hemanth Kerr UR MICRO IND INDICATED Normal [facility] Comment on above: Performed By: #### L ACT #### [facility] [address] [address] [address] Hemanth Kerr Urobilinogen Qn (U) 1.0 {Jose'U}/dL Normal 0.2 - 1. 0 [facility] Comment on above: Performed By: #### L ACT #### [facility] [address] [address] [address] Hemanth Kerr PREG HCG QUALon 10-11-2022 , QUAL Negative Normal NEGATIVE [facility] Comment on above: Performed By: #### P REG #### [facility] [address] [address] [address] Hemanth Kerr PROF CHEM 8 (BAS METB)on Anion gap [Moles/Vol] 9.4 mmol/L Normal [facility] Comment on above: Performed By: #### L ACT #### [facility] [address] [place] [address] Dr. Hemanth Kerr Calcium [Mass/Vol] 8.8 mg/dL Normal 8.5-10.1 [facility] Comment on above: Performed By: #### L ACT #### [facility] [address] [address] [address] Hemanth Kerr Chloride [Moles/Vol] 97 mmol/L Critically low 98-107 [facility] Comment on above: Performed By: #### L ACT #### [facility] [address] [place] [address] Dr. Hemanth Kerr CO2 [Moles/Vol] 32.4 mmol/L Critically high 21.0-32.0 [facility] Comment on above: Performed By: #### L ACT #### [facility] [address] [place] [address] Dr. Hemanth Kerr Creatinine [Mass/Vol] 0.65 mg/dL Normal 0.55-1.02 [facility] Comment on above: Performed By: #### L ACT #### [facility] [address] [place] [address] Dr. Hemanth Kerr EGFR-AF KOSOVAN >60 Normal >=60 [facility] Comment on above: Performed By: #### L ACT #### [facility] [address] [address] [address] Hemanth Kerr EGFR-NON AF KOSOVAN >60 Normal >=60 [facility] Comment on above: Performed By: #### L ACT #### [facility] [address] [place] [address] Dr. Hemanth Kerr Glucose [Mass/Vol] 117 mg/dL Critically high 74-106 T [facility] Comment on above: Performed By: #### L ACT #### [facility] [address] [address] [address] Hemanth Kerr Potassium [Moles/Vol] 2.8 mmol/L Critically low 3.5-5.1 [facility] Comment on above: Performed By: #### L ACT #### [facility] [address] [place] [address] Dr. Hemanth Kerr Sodium [Moles/Vol] 135 mmol/L Critically low 136-145 [facility] Comment on above: Performed By: #### L ACT #### [facility] [address] [place] [address] Dr. Hemanth Kerr Urea nitrogen [Mass/Vol] 8.0 mg/dL Normal 7.0-18.0 [facility] Comment on above: Performed By: #### L ACT #### [facility] [address] [place] [address] Dr. Hemanth Kerr Urea nitrogen/Creatinine [Mass ratio] 12.3 mg/mg Normal [facility] Comment on above: Performed By: #### L ACT #### [facility] [address] [place] [address] Dr. Hemanth Kerr URINE MICROSCOPIC ONLYon BACTERIA SMALL Abnormal NONE SEEN [facility] Comment on above: Performed By: #### L ACT #### [facility] [address] [place], [place] [id number] Dr. Hemanth Kerr Bacteria identified Cx Nom (U) INDICATED Normal [facility] Comment on above: Performed By: #### L ACT #### [facility] [address] [place] [address] Dr. Hemanth Kerr CAST NONE SEEN Normal NONE SEEN [facility] Comment on above: Performed By: #### L ACT #### [facility] [address] [place] [address] Dr. Hemanth Kerr Crystals LM Nom (Urine sed) NONE SEEN Normal NONE SEEN [facility] Comment on above: Performed By: #### L ACT #### [facility] [address] [place] [address] Dr. Hemanth Kerr Epithelial cells LM Ql (Urine sed) FEW Abnormal NONE SEEN /RARE [facility] Comment on above: Performed By: #### L ACT #### [facility] [address] [place] [address] Dr. Hemanth Kerr MUCOUS NONE SEEN Normal NONE SEEN [facility] Comment on above: Performed By: #### L ACT #### [facility] [address] [place] [address] Dr. Hemanth Kerr RBC 0-2 Normal 0-2 [facility] Comment on above: Performed By: #### L ACT #### [facility] [address] [place] [address] Dr. Hemanth Kerr WBC 10-20 Abnormal NONE SEEN [facility] Comment on above: Performed By: #### L ACT #### [facility] [address] [place] [address] Dr. Hemanth Kerr PREG QUANT HCGon 09-12-2022 HCG QUANT 66 mIU/mL Normal [facility] Comment on above: Performed By: #### C MP #### [facility] [address] [place] [address] Dr. Hemanth Kerr HCG RANGE SEE BELOW Normal [facility] Comment on above: Result Comment: 5-50 0.2-1 WEEK 50-500 1-2 WEEKS 100-5,000 2-3 WEEKS 500-10,000 3-4 WEEKS 1,000-50,000 4-5 WEEKS 10,000-100,000 5-6 WEEKS 15,000-200,000 6-8 WEEKS 10,000-100,000 2-3 MONTHS Performed By: #### C MP #### [facility] [address] [place] [address] Dr. Hemanth Kerr CBC AUTO DIFFon 08-16-2022 BASO # 0.0 103/ul Normal 0.0-0.1 [facility] Comment on above: Performed By: #### L ACT #### [facility] [address] [place] [address] Dr. Hemanth Kerr Basophils/100 WBC (Bld) 0.6 % Normal 0.2-2.0 [facility] Comment on above: Performed By: #### L ACT #### [facility] [address] [address] [address] Hemanth Kerr EO # 0.1 103/ul Normal 0.0-0.7 [facility] Comment on above: Performed By: #### L ACT #### [facility] [address] [place] [address] Dr. Hemanth Kerr Eosinophils/100 WBC (Bld) 1.3 % Normal 0.9-7.0 [facility] Comment on above: Performed By: #### L ACT #### [facility] [address] [place] [address] Dr. Hemanth Kerr Erythrocyte distribution width (RBC) [Ratio] 12.0 % Normal 11.0-15.0 [facility] Comment on above: Performed By: #### L ACT #### [facility] [address] [place] [address] Dr. Hemanth Kerr Hematocrit (Bld) [Volume fraction] 35.6 % Critically low 36.0-48.0 [facility] Comment on above: Performed By: #### L ACT #### [facility] [address] [place] [address] Dr. Hemanth Kerr Hemoglobin (Bld) [Mass/Vol] 12.4 g/dL Normal 12.0-16.0 [facility] Comment on above: Performed By: #### L ACT #### [facility] [address] [place] [address] Dr. Hemanth Kerr IG # 0.02 10e3/ul Normal 0.00-0.03 [facility] Comment on above: Performed By: #### L ACT #### [facility] [address] [place] [address] Dr. Hemanth Kerr IG % 0.3 % Normal 0.0-0.5 [facility] Comment on above: Performed By: #### L ACT #### [facility] [address] [place] [address] Dr. Hemanth Kerr LYMPH # 1.9 103/ul Normal 1.2-3.8 [facility] Comment on above: Performed By: #### L ACT #### [facility] [address] [place] [address] Dr. Hemanth Kerr Lymphocytes/100 WBC (Bld) 27.5 % Normal 20.5-60.0 [facility] Comment on above: Performed By: #### L ACT #### [facility] [address] [place] [address] Dr. Hemanth Kerr MANUAL DIFF REQ NO Normal [facility] Comment on above: Performed By: #### L ACT #### [facility] [address] [place] [address] Dr. Hemanth Kerr MCH (RBC) [Entitic mass] 29.6 pg Normal 26.7-34.0 [facility] Comment on above: Performed By: #### L ACT #### [facility] [address] [place] [address] Dr. Hemanth Kerr MCHC (RBC) [Mass/Vol] 34.8 g/dL Normal 29.9-35.2 [facility] Comment on above: Performed By: #### L ACT #### [facility] [address] [place] [address] Dr. Hemanth Kerr MCV (RBC) [Entitic vol] 85.0 fL Normal 81.0-99.0 [facility] Comment on above: Performed By: #### L ACT #### [facility] [address] [place] [address] Dr. Hemanth Kerr MONO # 0.4 103/ul Normal 0.3-0.8 [facility] Comment on above: Performed By: #### L ACT #### [facility] [address] [place] [address] Dr. Hemanth Kerr Monocytes/100 WBC (Bld) 6.3 % Normal 1.7-12.0 [facility] Comment on above: Performed By: #### L ACT #### [facility] [address] [address] [address] Hemanth Kerr NEUT # 4.5 103/ul Normal 1.4-6.5 [facility] Comment on above: Performed By: #### L ACT #### [facility] [address] [address] [address] Hemanth Kerr Neutrophils/100 WBC (Bld) 64.0 % Normal 43.0-75.0 [facility] Comment on above: Performed By: #### L ACT #### [facility] [address] [place] [address] Dr. Hemanth Kerr Platelet mean volume (Bld) [Entitic vol] 10.6 fL Normal 9.5-13.5 [facility] Comment on above: Performed By: #### L ACT #### [facility] [address] [place] [address] Dr. Hemanth Kerr PLT 247 103/ul Normal 150-450 [facility] Comment on above: Performed By: #### L ACT #### [facility] [address] [place] [address] Dr. Hemanth Kerr RBC 4.19 106/ul Critically low 4.20-5.40 [facility] Comment on above: Performed By: #### L ACT #### [facility] [address] [place] [address] Dr. Hemanth Kerr WBC 7.0 103/ul Normal 4.0-11.0 [facility] Comment on above: Performed By: #### L ACT #### [facility] [address] [place] [address] Dr. Hemanth Kerr Covid-19 PCR ([facility])on 07-20 SARS-CoV-2 (COVID-19) RNA ELMO+probe Ql (Unsp spec) Not detected Normal NOT DETECTED [facility] Comment on above: Result Comment: This test is not yet approved or cleared by the [place] FDA. When there are no FDA-approved or cleared tests available, and other criteria are met, FDA can make tests available under an emergency access mechanism called an Emergency Use Authorization (EUA). The EUA for this test is supported by the Weight Calculator of Health and Human Service's (HHS's) declaration [...] By: #### C MP #### [facility] [address] [place] [address] Dr. Hemanth Kerr PREG QUANT HCGon 08-16-2022 HCG QUANT 57836 mIU/mL Normal [facility] Comment on above: Performed By: #### P REG #### [facility] [address] [place] [address] Dr. Hemanth Kerr HCG RANGE SEE BELOW Normal [facility] Comment on above: Result Comment: 5-50 0.2-1 WEEK 50-500 1-2 WEEKS 100-5,000 2-3 WEEKS 500-10,000 3-4 WEEKS 1,000-50,000 4-5 WEEKS 10,000-100,000 5-6 WEEKS 15,000-200,000 6-8 WEEKS 10,000-100,000 2-3 MONTHS Performed By: #### P REG #### [facility] [address] [place] [address] Dr. Hemanth Kerr PREG QUANT HCGon 08-14-2022 HCG QUANT 83739 mIU/mL Normal [facility] Comment on above: Performed By: #### P REG #### [facility] [address] [place] [address] Dr. Hemanth Kerr HCG RANGE SEE BELOW Normal [facility] Comment on above: Result Comment: 5-50 0.2-1 WEEK 50-500 1-2 WEEKS 100-5,000 2-3 WEEKS 500-10,000 3-4 WEEKS 1,000-50,000 4-5 WEEKS 10,000-100,000 5-6 WEEKS 15,000-200,000 6-8 WEEKS 10,000-100,000 2-3 MONTHS Performed By: #### P REG #### [facility] [address] [address] [address] Hemanth Kerr US PREG TVon 08-14-2022 [...] by: CHRISTINE SÁNCHEZ Date: 2022-08-14 16:22 Normal [facility] US PREG TVon 07-27-2022 US PREG [...] by: CHRISTINE SÁNCHEZ Date: 2022-07-27 17:04 Normal [facility] XR CHEST 1 Von 07-09-2022 XR [...] FELIX WEBB Date: 2022-07-09 12:06 Normal [facility]E ERVIN ([id number]) 1995 F Date Time Provider Department 12/12/21 KING SUAZO During your visit today, we recorded the following information about you: Angelia Almazan 12/12/2021 11:16 AM Signed Pleases sign pending new cbc order. Thanks, Angelia Almazan MA Allergies As of Date: 12/12/2021 (No Known Allergies) Date Reviewed: 12/12/2021 Reviewed by: Jasmin Silverio APRN.[facility] - Fully Assessed Reason for Visit: Lab Orders [168] Primary Visit Diagnosis:Iron deficiency anemia, unspecified iron deficiency anemia type [D50.9] Order(s):CBC + DIFF [SQCBCDIF] Order #: [id number] FUTURE Prescriptions as of 12/12/2021 - gabapentin (NEURONTIN) 400 mg capsule Take by mouth. - Polysaccharide Iron Complex 180 mg iron cap Take by mouth. - aspirin 81 mg cap Take 81 mg by mouth once daily. - ONDANSETRON HCL ORAL Take 4 mg by mouth as needed. Problem List As Of Date: 12/12/2021 (None) Encounter Status:Closed by JASMIN SILVERIO on 12/12/21 Normal [facility] 11[facility] NOE ERVIN ([id number]) 1995 F Date Time Provider Department 11/10/21 [...] B12 is slightly low. Options would be [id number] B12 tablets 2 mg daily or start a monthly injection. Thanks, MELANY De La O RN 11/10/2021 3:40 PM Signed Informed pt of Dr Suazo's message. Pt verbalized understanding and states [facility] told her only 2 doses of [...] by JENNYFER DE LA O on 11/10/21 [facility] CNOVSPon 11-08-2021 CNOVSP Visit (SP) Office ([place]) NOE ERVIN ([id number]) 1995 F Date Time Provider Department 11/08/21 [...] shortness of breath, and is seen at [place] emergency room. Labs revealed a hemoglobin of [...] changes, r (more content not included)... Normal [facility] Comp Metabolic Panelon 11-08 Albumin [Mass/Vol] 3.6 g/dL Low 3.9-4.9 [facility] Comment on above: Performed By: #### S ERFOL, IRON, B12, FERR #### [address] [place], [place] [address] ALP [Catalytic activity/Vol] 79 U/L Normal 34-123 [facility] Comment on above: Performed By: #### S ERFOL, IRON, B12, FERR #### [facility] [address] [place], [place] [address] ALT [Catalytic activity/Vol] 8 U/L Normal 7-38 [facility] Comment on above: Performed By: #### S ERFOL, IRON, B12, FERR #### [facility] [address] [place], [place] [address] Anion gap [Moles/Vol] 9 mmol/L Normal 9-18 [facility] Comment on above: Performed By: #### S ERFOL, IRON, B12, FERR #### [facility] [address] [place], [place] [address] AST [Catalytic activity/Vol] 13 U/L Normal 13-35 [facility] Comment on above: Performed By: #### S ERFOL, IRON, B12, FERR #### [address] [place] [address] Bilirubin [Mass/Vol] 0.2 mg/dL Normal 0.2-1.3 [facility] Comment on above: Performed By: #### S ERFOL, IRON, B12, FERR #### [place] [address] Calcium [Mass/Vol] 9.3 mg/dL Normal 8.5-10.2 [facility] Comment on above: Performed By: #### S ERFOL, IRON, B12, FERR #### [place] [address] Chloride [Moles/Vol] 102 mmol/L Normal 97-105 [facility] Comment on above: Performed By: #### S ERFOL, IRON, B12, FERR #### [place] [address] CO2 [Moles/Vol] 23 mmol/L Normal 22-30 [facility] Comment on above: Performed By: #### S ERFOL, IRON, B12, FERR #### [place] [address] Creatinine [Mass/Vol] 0.55 mg/dL Low 0.58-0.96 [facility] Comment on above: Performed By: #### S ERFOL, IRON, B12, FERR #### [place] [address] eGFR- Amer. >60 Normal [facility] Comment on above: Performed By: #### S ERFOL, IRON, B12, FERR #### [place] [address] eGFR-All Other Races >60 Normal [facility] Comment on above: Result Comment: eGFR [...] B12, FERR #### [facility] [employer] [address] [place], [place] [address] Glucose [Mass/Vol] 96 mg/dL Normal 74-99 [facility] Comment on above: Result Comment: The [place] Diabetes Association (ADA) provides guidance for cutoff [...] Standards of Medical Care in Diabetes 2016, [place] [employer]. Diabetes Care. 2016.39(Suppl 1). Performed By: #### S ERFOL, IRON, B12, FERR #### [facility] [employer] [address] [place], [place] [address] Potassium [Moles/Vol] 3.3 mmol/L Low 3.7-5.1 [facility] Comment on above: Performed By: #### S ERFOL, IRON, B12, FERR #### [address] [place], [place] [address] Protein [Mass/Vol] 6.3 g/dL Normal 6.3-8.0 [facility] Comment on above: Performed By: #### S ERFOL, IRON, B12, FERR #### [address] [address] Sodium [Moles/Vol] 134 mmol/L Low 136-144 [facility] Comment on above: Performed By: #### S ERFOL, IRON, B12, FERR #### [place] [address] Urea nitrogen [Mass/Vol] 4 mg/dL Low 7-21 [facility] Comment on above: Performed By: #### S ERFOL, IRON, B12, FERR #### [place] [id number] Ferritinon 11-08-2021 Ferritin [Mass/Vol] 203.0 ng/mL Normal 14.7-205.1 [facility] Comment on above: Performed By: #### S ERFOL, IRON, B12, FERR #### [address] [address] Folate, Serumon 11-08-2021 Folate [Mass/Vol] 8.5 ng/mL Normal >4.7 [facility] Comment on above: Performed By: #### S ERFOL, IRON, B12, FERR #### [address] [address] Iron and TIBCon 11-08-2021 Iron [Mass/Vol] 93 ug/dL Normal 41-186 [facility] Comment on above: Performed By: #### S ERFOL, IRON, B12, FERR #### [address] [address] TIBC 407 ug/dL High 232-386 [facility] Comment on above: Performed By: #### S ERFOL, IRON, B12, FERR #### [facility] [address] [id number] Transferrin Saturatn 23 % Normal 15-57 [facility] [place] Comment on above: Performed By: #### S ERFOL, IRON, B12, FERR #### [facility] [employer] [address] [place], [place] [address] Remote CBCDIF (for [facility] use o nly)on 11-08-2021 Abs Baso <0.03 Normal <0.11 [facility] Abs Duplin 0.57 k/uL Normal <0.87 [facility] Abs Neut 4.67 k/uL Normal 1.45-7.50 [facility] Absolute nRBC <0.01 Normal <0.01 [facility] Basophils/100 WBC (Bld) 0.3 % Normal [facility] DTYPE Auto Diff Normal [facility] Eosinophils (Bld) [#/Vol] 0.05 10*3/uL Normal <0.46 [facility] Eosinophils/100 WBC (Bld) 0.8 % Normal [facility] Erythrocyte distribution width (RBC) [Ratio] 29.9 % High 11.5-15.0 [facility] Hematocrit (Bld) [Volume fraction] 32.6 % Low 36.0-46.0 [facility] Hemoglobin (Bld) [Mass/Vol] 10.1 g/dL Low 11.5-15.5 [facility] Lymphocytes (Bld) [#/Vol] 1.25 10*3/uL Normal 1.00-4.00 [facility] Lymphocytes/100 WBC (Bld) 19.1 % Normal [facility] MCH 25.1 pG Low 26.0-34.0 [facility] MCHC (RBC) [Mass/Vol] 31.0 g/dL Normal 30.5-36.0 [facility] MCV (RBC) [Entitic vol] 81.1 fL Normal 80.0-100.0 [facility] Monocytes/100 WBC (Bld) 8.7 % Normal [facility] Neutrophils/100 WBC (Bld) 71.1 % Normal [facility] NRBCs 0.0 /[address] [facility] Platelet mean volume (Bld) [Entitic vol] 10.3 fL Normal 9.0-12.7 [facility] Platelets (Bld) [#/Vol] 223 10*3/uL Normal 150-400 [facility] Comment on above: Result Comment: Resu lt checked and verified Sample checked for a clot. RBC (Bld) [#/Vol] 4.02 10*6/uL Normal 3.90-5.20 [facility] WBC (Bld) [#/Vol] 6.56 10*3/uL Normal 3.70-11.00 [facility] Reticulocyteon 11-08-2021 Abs Retic 0.140 M/uL High 0.0180-0.1000 [facility] Comment on above: Performed By: #### S ERFOL, IRON, B12, FERR #### [place] [address] Retic% 3.5 % High 0.4-2.0 [facility] Comment on above: Performed By: #### S ERFOL, IRON, B12, FERR #### [address] [place] [id number] Vitamin B12on 11-08-2021 Cobalamin (Vitamin B12) [Mass/Vol] 218 pg/mL Low 232-1245 [facility] Comment on above: Performed By: #### S ERFOL, IRON, B12, FERR #### [address] [place] [address] HCV RNA,Quant,PCRon 04-27-20 20 HCV RNA,Quant,PCR Specimen [...] Report Status FINAL 04/27/2020 Normal [facility] Comment on above: Performed By: #### H IVCMB, PHEP #### [address] [address] Maintenance Services Dispatcher: Dom Fowler MD #### CP #### [facility] [address] [place] [address] Dr. [address] [phone] Maintenance Services Dispatcher: Shakeel Graham MD [facility] 04-26-2020 Erythrocyte distribution width (RBC) [Ratio] 14.7 % High 11.8-14.4 [facility] Comment on above: Performed By: #### H IVCMB, PHEP #### [address] [address] Maintenance Services Dispatcher: Dom Fowler MD #### CP #### [facility] [address] [place] [address] Dr. [address] [phone] Maintenance Services Dispatcher: Shakeel Graham MD Hematocrit (Bld) [Volume fraction] 36.0 % Low 36.3-47.1 [facility] Comment on above: Performed By: #### H IVCMB, PHEP #### [address] [address] Maintenance Services Dispatcher: Dom Fowler MD #### CP #### [facility] [address] [place] [address] [address] [phone] Maintenance Services Dispatcher: Shakeel Graham MD Hemoglobin (Bld) [Mass/Vol] 10.9 g/dL Low 11.9-15.1 [facility] Comment on above: Performed By: #### H IVCMB, PHEP #### [address] [address] Maintenance Services Dispatcher: Dom Fowler MD #### CP #### [facility] [address] [place] [address] [place], [place] [phone] Maintenance Services Dispatcher: Shakeel Graham MD MCH (RBC) [Entitic mass] 26.2 pg Normal 25.2-33.5 [facility] Comment on above: Performed By: #### H IVCMB, PHEP #### [address] [address] Maintenance Services Dispatcher: Dom Fowler MD #### CP #### [facility] [address] [place] [address] Dr. [address] [phone] Maintenance Services Dispatcher: Shakeel Graham MD MCHC (RBC) [Mass/Vol] 30.3 g/dL Normal 28.4-34.8 [facility] Comment on above: Performed By: #### H IVCMB, PHEP #### [address] [address] Maintenance Services Dispatcher: Dom Fowler MD #### CP #### [address] [place] [phone] Maintenance Services Dispatcher: Shakeel Graham MD MCV (RBC) [Entitic vol] 86.5 fL Normal 82.6-102.9 [facility] Comment on above: Performed By: #### H IVCMB, PHEP #### [address] [address] Maintenance Services Dispatcher: Dom Fowler MD #### CP #### [address] [place] [phone] Maintenance Services Dispatcher: Shakeel Graham MD NRBC Automated 0.0 per 100 WBC Normal 0.0 [facility] Comment on above: Performed By: #### H IVCMB, PHEP #### [address] [address] Maintenance Services Dispatcher: Dom Fowler MD #### CP #### [address] [place], [place] [address] Maintenance Services Dispatcher: Shakeel Graham MD Platelet mean volume (Bld) [Entitic vol] 10.8 fL Normal 8.1-13.5 [facility] Comment on above: Performed By: #### H IVCMB, PHEP #### [address] [address] Maintenance Services Dispatcher: Dom Fowler MD #### CP #### [address] [place], [place] [id number] Maintenance Services Dispatcher: Shakeel Graham MD Platelets (Bld) [#/Vol] 328 10*3/uL Normal 138-453 [facility] Comment on above: Performed By: #### H IVCMB, PHEP #### [address] [address] Maintenance Services Dispatcher: Dom Fowler MD #### CP #### [address] [place], [place] [phone] Maintenance Services Dispatcher: Shakeel Graham MD RBC (Bld) [#/Vol] 4.16 10*6/uL Normal 3.95-5.11 [facility] Comment on above: Performed By: #### H IVCMB, PHEP #### [address] [address] Maintenance Services Dispatcher: Dom Fowler MD #### CP #### [address] [place], [place] [phone] Maintenance Services Dispatcher: Shakeel Graham MD WBC (Bld) [#/Vol] 5.7 10*3/uL Normal 3.5-11.3 [facility] Comment on above: Performed By: #### H IVCMB, PHEP #### [address] [address] Maintenance Services Dispatcher: Dom Fowler MD #### CP #### [address] [place] [address] Maintenance Services Dispatcher: Shakeel Graham MD Erythrocyte distribution width (RBC) [Ratio] 14.7 % High 11.8 - 14.4 % [place], [place] Hematocrit (Bld) [Volume fraction] 36.0 % Low 36.3 - 47.1 % [place] Hemoglobin (Bld) [Mass/Vol] 10.9 g/dL Low 11.9 - 15.1 g/dL [place] Interpretation and review of laboratory results Abnormal [place] MCH (RBC) [Entitic mass] 26.2 pg 25.2 - 33.5 pg [place] MCHC (RBC) [Mass/Vol] 30.3 g/dL 28.4 - 34.8 g/dL [place] MCV (RBC) [Entitic vol] 86.5 fL 82.6 - 102.9 fL [place] Platelet mean volume (Bld) [Entitic vol] 10.8 fL 8.1 - 13.5 fL [place], [place] Platelets (Bld) [#/Vol] 328 10*3/uL [place] RBC (Bld) [#/Vol] 4.16 10*6/uL 3.95 - 5.1 1 m/uL [place] WBC (Bld) [#/Vol] 0.0 10*3/uL 0.0 per 100 WBC [place], [place] WBC (Bld) [#/Vol] 5.7 10*3/uL [place], [place] Comp Metabolic Profon 2019 Bilirubin Ql (U) <0.10 Low 0.3-1.2 [facility] Comment on above: Performed By: #### H IVCMB, PHEP #### [facility] [employer] [address] [place] [address] Maintenance Services Dispatcher: Dom Fowler MD #### CP #### [facility] [address] [place] [address] Maintenance Services Dispatcher: Shakeel Graham MD (cont.) Normal [facility] Comment on above: Result Comment: Aver age GFR for 20-29 years old: 116 mL/min/1.73sq m Chronic Kidney Disease: <60 mL/min/1.73sq m Kidney failure: <15 mL/min/1.73sq m eGFR calculated using average adult body mass. Additional eGFR calculator available at: http://www.Patronpath/multiple_crcl_2011.htm Performed By: #### H IVCMB, PHEP #### [facility] [address] [place] [address] Maintenance Services Dispatcher: Dom Fowler MD #### CP #### [facility] [address] [place] [address] Maintenance Services Dispatcher: Shakeel Graham MD Albumin [Mass/Vol] 3.4 g/dL Low 3.5-5.2 [facility] Comment on above: Performed By: #### H IVCMB, PHEP #### [address] [place] [address] Maintenance Services Dispatcher: Dom Fowler MD #### CP #### [facility] [address] [place] [address] Maintenance Services Dispatcher: Shakeel Graham MD Albumin/Globulin [Mass ratio] 1.5 {ratio} Normal 1.0-2.5 [facility] Comment on above: Performed By: #### H IVCMB, PHEP #### [address] [place] [address] Maintenance Services Dispatcher: Dom Fowler MD #### CP #### [facility] [address] [place] [address] Maintenance Services Dispatcher: Shakeel Graham MD Alkaline Phos 40 U/L Normal 35-104 [facility] Comment on above: Performed By: #### H IVCMB, PHEP #### [address] [address] Maintenance Services Dispatcher: Dom Fowler MD #### CP #### [facility] [address] [place], [place] [phone] Maintenance Services Dispatcher: Shakeel Graham MD ALT [Catalytic activity/Vol] 12 U/L Normal 5-33 [facility] Comment on above: Performed By: #### H IVCMB, PHEP #### [facility] [address] [place] [address] Maintenance Services Dispatcher: Dom Fowler MD #### CP #### [facility] [address] [place], [place] [phone] Maintenance Services Dispatcher: Shakeel Graham MD Anion gap [Moles/Vol] 9 mmol/L Normal 9-17 [facility] Comment on above: Performed By: #### H IVCMB, PHEP #### [facility] [address] [place] [address] Maintenance Services Dispatcher: Dom Fowler MD #### CP #### [facility] [address] [place], [place] [phone] Maintenance Services Dispatcher: Shakeel Graham MD AST [Catalytic activity/Vol] 12 U/L Normal <32 [facility] Comment on above: Performed By: #### H IVCMB, PHEP #### [facility] [address] [place] [address] Maintenance Services Dispatcher: Dom Fowler MD #### CP #### [facility] [address] [place], [place] [phone] Maintenance Services Dispatcher: Shakeel Graham MD BUN/CRE Ratio 26 High 9-20 [facility] Comment on above: Performed By: #### H IVCMB, PHEP #### [facility] [address] [place] [address] Maintenance Services Dispatcher: Dom Fowler MD #### CP #### [facility] [address] [place], [place] 1897183 Maintenance Services Dispatcher: Shakeel Graham MD Calcium [Mass/Vol] 9.3 mg/dL Normal 8.6-10.4 [facility] Comment on above: Performed By: #### H IVCMB, PHEP #### [address] [address] Maintenance Services Dispatcher: Dom Fowler MD #### CP #### [facility] [address] [place] [address] Dr. [address] [phone] Maintenance Services Dispatcher: Shakeel Graham MD Chloride [Moles/Vol] 109 mmol/L High 98-107 [facility] Comment on above: Performed By: #### H IVCMB, PHEP #### [address] [address] Maintenance Services Dispatcher: Dom Fowler MD #### CP #### [facility] [address] [place] [address] [place] [phone] Maintenance Services Dispatcher: Shakeel Graham MD CO2 [Moles/Vol] 26 mmol/L Normal 20-31 [facility] Comment on above: Performed By: #### H IVCMB, PHEP #### [address] [address] Maintenance Services Dispatcher: Dom Fowler MD #### CP #### [address] [phone] Maintenance Services Dispatcher: Shakeel Graham MD Creatinine [Mass/Vol] 0.57 mg/dL Normal 0.50-0.90 [facility] Comment on above: Performed By: #### H IVCMB, PHEP #### [address] [address] Maintenance Services Dispatcher: Dom Fowler MD #### CP #### [facility] [address] [place] [address] [place], [place] [phone] Maintenance Services Dispatcher: Shakeel Graham MD GFR, Amer >60 Normal >60 [facility] Comment on above: Performed By: #### H IVCMB, PHEP #### [facility] [address] [place] [address] Maintenance Services Dispatcher: Dom Fowler MD #### CP #### [facility] [address] [place], [place] [phone] Maintenance Services Dispatcher: Shakeel Graham MD GFR,non Amer >60 Normal >60 [facility] Comment on above: Performed By: #### H IVCMB, PHEP #### [address] [address] Maintenance Services Dispatcher: Dom Fowler MD #### CP #### [facility] [address] [place] [address] [place]. [place], [place] [phone] Maintenance Services Dispatcher: Shakeel Graham MD Glucose [Mass/Vol] 92 mg/dL Normal 70-99 [facility] Comment on above: Performed By: #### H IVCMB, PHEP #### [address] [address] Maintenance Services Dispatcher: Dom Fowler MD #### CP #### [facility] [address] [place] [address] [place] [address] Maintenance Services Dispatcher: Shakeel Graham MD Potassium [Moles/Vol] 3.8 mmol/L Normal 3.7-5.3 [facility] Comment on above: Performed By: #### H IVCMB, PHEP #### [facility] [address] [place] [address] Maintenance Services Dispatcher: Dom Fowler MD #### CP #### [facility] [address] [place], [place] [phone] Maintenance Services Dispatcher: Shakeel Graham MD Protein [Mass/Vol] 5.7 g/dL Low 6.4-8.3 [facility] Comment on above: Performed By: #### H IVCMB, PHEP #### [address] [address] Maintenance Services Dispatcher: Dom Fowler MD #### CP #### [facility] [address] [place] [address] Maintenance Services Dispatcher: Shakeel Graham MD Sodium [Moles/Vol] 144 mmol/L Normal 135-144 [facility] Comment on above: Performed By: #### H IVCMB, PHEP #### [address] [place] [address] Maintenance Services Dispatcher: Dom Fowler MD #### CP #### [facility] [address] [place] [address] Maintenance Services Dispatcher: Shakeel Graham MD Staging: Normal [facility] Comment on above: Result Comment: Stag e 1: Some kidney damage normal GFR Stage 2: Mild kidney damage GFR 60-89 Stage 3: Moderate kidney damage GFR 30-59 Stage 4: Severe kidney damage GFR 15-29 Stage 5: Severe kidney damage GFR <15 ESRD - chronic treatment by dialysis or transplant Performed By: #### H IVCMB, PHEP #### [facility] [address] [place] [address] Maintenance Services Dispatcher: Dom Fowler MD #### CP #### [address] [place] [address] Maintenance Services Dispatcher: Shakeel Graham MD Urea nitrogen [Mass/Vol] 15 mg/dL Normal 6-20 [facility] Comment on above: Performed By: #### H IVCMB, PHEP #### [facility] [address] [place] [address] Maintenance Services Dispatcher: Dom Fowler MD #### CP #### [address] [place] [address] Maintenance Services Dispatcher: Shakeel Graham MD [facility] 04-26-2020 Albumin [Mass/Vol] 3.4 g/dL Low 3.5 - 5.2 g/dL [place] Albumin/Globulin [Mass ratio] 1.5 {ratio} [place] ALP [Catalytic activity/Vol] 40 U/L 35 - 104 U/L [place] ALT [Catalytic activity/Vol] 12 U/L 5 - 33 U/L [place] Anion gap [Moles/Vol] 9 mmol/L 9 - 17 mmol/L [place] AST [Catalytic activity/Vol] 12 U/L <32 [place] Bilirubin Ql (U) <0.10 Low 0.3 - 1.2 mg/dL [place], [place] Bun/Cre Ratio 26 High [place], [place] Calcium [Mass/Vol] 9.3 mg/dL 8.6 - 10. 4 mg/dL [place] Chloride [Moles/Vol] 109 mmol/L High 98 - 107 mmol/L [place] CO2 [Moles/Vol] 26 mmol/L 20 - 31 mmol/L [place] Creatinine [Mass/Vol] 0.57 mg/dL 0.5 - 0.9 mg/dL [place] GFR >60 >60 mL/min [place] GFR Non- >60 >60 mL/min [place] Glucose [Mass/Vol] 92 mg/dL 70 - 99 mg/dL [place] Interpretation and review of laboratory results Abnormal [place] Potassium [Moles/Vol] 3.8 mmol/L 3.7 - 5.3 mmol/L [place] Protein [Mass/Vol] 5.7 g/dL Low 6.4 - 8.3 g/dL [place] Sodium [Moles/Vol] 144 mmol/L 135 - 144 mmol/L [place] Urea nitrogen [Mass/Vol] 15 mg/dL 6 - 20 mg/dL [place] HCG Qualitative, Serumon hCG Qual Negative NEGATIVE [place] Comment on above: Specimens with hCG l evels near the threshold of the test (25 mIU/mL) may give a negative or indeterminate result. In such cases, another test should be performed with a new specimen in 48-72 hours. If early is suspected clinically in this setting, correlation with quantitative serum b-hCG level is suggested. [facility] has confirmed the use of plasma for this test. This has not been cleared or approved by the U.S. Food and Drug Administration. The FDA has determined that such clearance is not necessary. HCG Screen, Bloodon 04-26-20 20 HCG Qn Negative Normal NEG [facility] Comment on above: Result Comment: Spec imens with hCG levels near the threshold of the test (25 mIU/mL) may give a negative or indeterminate result. In such cases, another test should be performed with a new specimen in 48-72 hours. If early is suspected clinically in this setting, correlation with quantitative serum b-hCG level is suggested. [facility] has confirmed the use of plasma for this test. This has not been cleared or approved by the U.S. Food and Drug Administration. The FDA has determined that such clearance is not necessary. Performed By: #### H IVCMB, PHEP #### [facility] [address] [place], [place] [phone] Maintenance Services Dispatcher: Dom Fowler MD #### CP #### [facility] [address] [place] [address] [place] [address] Maintenance Services Dispatcher: Shakeel Graham MD HIV Ag/Abon 04-26-2020 HIV Ag/Ab NONREACTIVE Normal NR [facility] Comment on above: Result Comment: No l aboratory evidence of HIV infection. If acute HIV infection is suspected, consider testing for HIV-1 RNA. Performed By: #### H IVCMB, PHEP #### [facility] [address] [place] [address] Maintenance Services Dispatcher: Dom Fowler MD #### CP #### [facility] [address] [place] [address] Maintenance Services Dispatcher: Shakeel Graham MD HIV Screenon 04-26-2020 HIV Ag/Ab NONREACTIVE NONREACTIVE [facility] Comment on above: No laboratory eviden ce of HIV infection. If acute HIV infection is suspected, consider testing for HIV-1 RNA. Hepatitis Acute [facility] 04-26 Hep A Ab,IgM NONREACTIVE Normal NR [facility] Comment on above: Performed By: #### H IVCMB, PHEP #### [facility] [address] [place] [address] Maintenance Services Dispatcher: Dom Fowler MD #### CP #### [facility] [address] [place] [address] [place] [address] Maintenance Services Dispatcher: Shakeel Graham MD Hep B Core Ab,IgM NONREACTIVE Normal [facility] Comment on above: Performed By: #### H IVCMB, PHEP #### [facility] [address] [place] [address] Maintenance Services Dispatcher: Dom Fowler MD #### CP #### [address] [place] [address] Maintenance Services Dispatcher: Shakeel Graham MD Hep B Surf Ag NONREACTIVE Normal [facility] Comment on above: Performed By: #### H IVCMB, PHEP #### [address] [address] Maintenance Services Dispatcher: Dom Fowler MD #### CP #### [facility] [address] [place] [address] [place] [address] Maintenance Services Dispatcher: Shakeel Graham MD Hep C Ab REACTIVE Abnormal [facility] Comment on above: Result Comment: [...] Performed By: #### H IVCMB, PHEP #### [facility] [address] [place] [address] Maintenance Services Dispatcher: Dom Fowler MD #### CP #### [facility] [address] [place] [address] Maintenance Services Dispatcher: Shakeel Graham MD Hepatitis Panel, Acuteon HAV IgM IA Qn (S) NONREACTIVE NONREACTIVE [place] Hep B Core Ab, IgM NONREACTIVE NONREACTIVE [place] Hepatitis B Surface Ag NONREACTIVE NONREACTIVE [place] Hepatitis C Ab REACTIVE Abnormal NONREACTIVE [place] Comment on above: The hepatitis C [...] Interpretation and review of laboratory results Abnormal [place] Metabolic Panelon 04-26-2020 GFR/1.73 sq M predicted among non-blacks MDRD (S/P/Bld) [Vol rate/Area] [place] Comment on above: Stage 1: Some [...] body mass. Additional eGFR calculator available at: http://www.Mirakl.rubberit/multiple_crcl_2012.htm Microscopic Urinalysison Amorphous, UA NOT REPORTED None [place] Bacteria, UA NOT REPORTED None [place], [place] Casts UA NOT REPORTED /LPF [place], [place] Crystals, UA 5 TO 10 Abnormal None /HPF [place] Crystals, UA CALCIUM OXALATE Abnormal None /HPF [place], [place] Epithelial Cells UA 0 TO 2 [place] Interpretation and review of laboratory results Abnormal [place] Mucus, UA TRACE Abnormal None [place] Other Observations UA NOT REPORTED NOT REQ. [place] RBC (U) [#/Vol] None [facility] [place] Renal Epithelial, UA NOT REPORTED 0 /HPF [place] Trichomonas, UA NOT REPORTED None [facility] [place] WBC, UA 0 TO 2 [place] Yeast, UA NOT REPORTED None [place], [place] - [place] UA w/Reflex Cultureon 2019 Acetoacetic Acid,Ur Negative Normal NEG [facility] Comment on above: Performed By: #### H IVCMB, PHEP #### [address] [address] Maintenance Services Dispatcher: Dom Fowler MD #### CP #### [address] [place] [id number] Maintenance Services Dispatcher: Shakeel Graham MD Bilirubin, SemiQt,Ur Negative Normal [facility] Comment on above: Performed By: #### H IVCMB, PHEP #### [address] [address] Maintenance Services Dispatcher: Dom Fowler MD #### CP #### [address] [place] [phone] Maintenance Services Dispatcher: Shakeel Graham MD Color (U) YELLOW Normal [facility] Comment on above: Performed By: #### H IVCMB, PHEP #### [address] [address] Maintenance Services Dispatcher: Dom Fowler MD #### CP #### [facility] [address] [place] [address] [place] [address] Maintenance Services Dispatcher: Shakeel Graham MD Glucose Ql (U) Negative Normal NEG [facility] Comment on above: Performed By: #### H IVCMB, PHEP #### [address] [address] Maintenance Services Dispatcher: Dom Fowler MD #### CP #### [facility] [address] [place] [address] Dr. [place], [place] [phone] Maintenance Services Dispatcher: Shakeel Graham MD Hemoglobin, Ur Negative Normal NEG [facility] Comment on above: Performed By: #### H IVCMB, PHEP #### [address] [address] Maintenance Services Dispatcher: Dom Fowler MD #### CP #### [address] [place] [address] Maintenance Services Dispatcher: Shakeel Graham MD Leukocyte esterase Test strip Ql (U) Negative Normal NEG [facility] Comment on above: Performed By: #### H IVCMB, PHEP #### [address] [address] Maintenance Services Dispatcher: Dom Fowler MD #### CP #### [address] [place] [address] Maintenance Services Dispatcher: Shakeel Graham MD Nitrite,Ur Negative Normal NEG [facility] Comment on above: Performed By: #### H IVCMB, PHEP #### [address] [address] Maintenance Services Dispatcher: Dom Fowler MD #### CP #### [address] [place] [address] Maintenance Services Dispatcher: Shakeel Graham MD pH (U) 6.5 [pH] Normal 5.0-9.0 [facility] Comment on above: Performed By: #### H IVCMB, PHEP #### [address] [address] Maintenance Services Dispatcher: Dom Fowler MD #### CP #### [facility] [address] [place] [address] Maintenance Services Dispatcher: Shakeel Graham MD Protein Ql (U) Negative Normal NEG [facility] Comment on above: Performed By: #### H IVCMB, PHEP #### [facility] [address] [place] [address] Maintenance Services Dispatcher: Dom Fowler MD #### CP #### [address] [place] [address] Maintenance Services Dispatcher: Shakeel Graham MD Specific gravity (U) [Rel density] 1.025 High 1.010-1.020 [facility] Comment on above: Performed By: #### H IVCMB, PHEP #### [facility] [address] [place] [address] Maintenance Services Dispatcher: Dom Fowler MD #### CP #### [address] [place] [address] Maintenance Services Dispatcher: Shakeel Graham MD Turbidity CLEAR Normal CLEAR [facility] Comment on above: Performed By: #### H IVCMB, PHEP #### [address] [address] Maintenance Services Dispatcher: Dom Fowler MD #### CP #### [address] [place] [address] Maintenance Services Dispatcher: Shakeel Graham MD Urobilinogen,Ur Normal Normal NORM [facility] Comment on above: Performed By: #### H IVCMB, PHEP #### [address] [address] Maintenance Services Dispatcher: Dom Fowler MD #### CP #### [address] [place] [address] Maintenance Services Dispatcher: Shakeel Graham MD Comment NOT REPORTED Normal [facility] Comment on above: Performed By: #### H IVCMB, PHEP #### [facility] [address] [place] [address] Maintenance Services Dispatcher: Dom Fowler MD #### CP #### [address] [place] [address] Maintenance Services Dispatcher: Shakeel Graham MD Urinalysis Reflex to Culture on 04-26-2020 Bilirubin Urine Negative NEGATIVE [facility], [place] Color, UA YELLOW YELLOW [facility] Glucose, Ur Negative NEGATIVE [facility] Interpretation and review of laboratory results Abnormal [place] Ketones Ql (U) Negative NEGATIVE [facility] Leukocyte esterase Test strip Ql (U) Negative NEGATIVE [facility] Nitrite, Urine Negative NEGATIVE [facility] pH, UA 6.5 [place] Protein (U) [Mass/Vol] Negative NEGATIVE [facility] Specific [place], UA 1.025 High [facility], [place] Turbidity UA CLEAR CLEAR [place] Urinalysis Comments NOT REPORTED [facility] Urine Hgb Negative NEGATIVE [facility] Urobilinogen, Urine Normal Normal [place] Urinalysis,Microon 0 ----- Normal [facility] Comment on above: Performed By: #### H IVCMB, PHEP #### [address] [place] [address] Maintenance Services Dispatcher: Dom Fowler MD #### CP #### [address] [place] [address] Maintenance Services Dispatcher: Shakeel Graham MD Crystals LM Nom (Urine sed) CALCIUM OXALATE Abnormal NONE [facility] Comment on above: Result Comment: 5 TO 10 Performed By: #### H IVCMB, PHEP #### [facility] [address] [place] [address] Maintenance Services Dispatcher: Dom Fowler MD #### CP #### [facility] [address] [place] [address] Maintenance Services Dispatcher: Shakeel Graham MD Epithelial cells LM.HPF (Urine sed) [#/Area] 0 TO 2 Normal 0-25 [facility] Comment on above: Performed By: #### H IVCMB, PHEP #### [address] [address] Maintenance Services Dispatcher: Dom Fowler MD #### CP #### [address] [place], [place] [phone] Maintenance Services Dispatcher: Shakeel Graham MD Mucus Strands TRACE Abnormal [facility] Comment on above: Performed By: #### H IVCMB, PHEP #### [address] [address] Maintenance Services Dispatcher: Dom Fowler MD #### CP #### [address] [place] [phone] Maintenance Services Dispatcher: Shakeel Graham MD RBC (U) [#/Vol] None Normal 0-2 [facility] Comment on above: Performed By: #### H IVCMB, PHEP #### [address] [address] Maintenance Services Dispatcher: Dom Fowler MD #### CP #### [address] [place] [address] Maintenance Services Dispatcher: Shakeel Graham MD WBC (U) [#/Vol] 0 TO 2 Normal 0-5 [facility] Comment on above: Performed By: #### H IVCMB, PHEP #### [address] [address] Maintenance Services Dispatcher: Dom Fowler MD #### CP #### [address] [place], [place] [id number] Maintenance Services Dispatcher: Shakeel Graham MD Amorphous sediment LM Ql (Urine sed) NOT REPORTED Normal [facility] Comment on above: Performed By: #### H IVCMB, PHEP #### [address] [address] Maintenance Services Dispatcher: Dom Fowler MD #### CP #### [facility] [address] [place] [address] Maintenance Services Dispatcher: Shakeel Graham MD Bacteria LM.HPF (Urine sed) [#/Area] NOT REPORTED Normal NONE [facility] Comment on above: Performed By: #### H IVCMB, PHEP #### [address] [address] Maintenance Services Dispatcher: Dom Fowler MD #### CP #### [address] [place] [address] Maintenance Services Dispatcher: Shakeel Graham MD Casts LM.LPF (Urine sed) [#/Area] NOT REPORTED Normal [facility] Comment on above: Performed By: #### H IVCMB, PHEP #### [address] [address] Maintenance Services Dispatcher: Dom Fowler MD #### CP #### [address] [place] [address] Maintenance Services Dispatcher: Shakeel Graham MD Epithelial, Renal NOT REPORTED Normal 0 [facility] Comment on above: Performed By: #### H IVCMB, PHEP #### [address] [address] Maintenance Services Dispatcher: Dom Fowler MD #### CP #### [address] [place] [address] Maintenance Services Dispatcher: Shakeel Graham MD Other Observations NOT REPORTED Normal NREQ [facility] Comment on above: Performed By: #### H IVCMB, PHEP #### [address] [address] Maintenance Services Dispatcher: Dom Fowler MD #### CP #### [facility] [address] [place], [place] [phone] Maintenance Services Dispatcher: Shakeel Graham MD Trichomonas NOT REPORTED Normal NONE [facility] Comment on above: Performed By: #### H IVCMB, PHEP #### [facility] [address] [place], [place] [phone] Maintenance Services Dispatcher: Dom Fowler MD #### CP #### [facility] [address] [place] [phone] Maintenance Services Dispatcher: Shakeel Graham MD Yeast LM Ql (Urine sed) NOT REPORTED Normal NONE [facility] Comment on above: Performed By: #### H IVCMB, PHEP #### [facility] [address] [place], [place] [phone] Maintenance Services Dispatcher: Dom Fowler MD #### CP #### [facility] [address] [place] [address] Dr. [place] [phone] Maintenance Services Dispatcher: Shakeel Graham MD ED Clinical Summaryon 2019 ED Clinical Summary [address] [address] ED Clinical Summary Person Information Name: Kathryn Ervin/[facility] Age: 25 Years : 1995 Sex: Female PCP: Marital Status: Single Phone: Race: White Ethnicity: Not or Language: Venezuelan Visit Reason: Drug withdrawal; Drug withdrawal Acuity: 3 Enc Type: Emergency Med Service: Emergency Medicine Arrival: 03/16/2020 20:10:45 Discharge: 03/17/2020 02:12:00 LOS: 000 06:02 Checkin: 03/16/2020 20:10:45 Checkout: 03/17/2020 02:12:00 Dispo Type: Home or Self Care Address: [address] [place] [id number] Provider Notes: Diagnosis: 1:Affective disorder; 2:Drug usage [...] range between ( 27.2 and 40.8 ) [place] Auto: 11.4 % -- Normal range between [...] range between ( 36.0 and 46.0 ) [place] Absolute: 1.5 x10 MCH: 27.4 pg -- [...] 03/16/2020 20:20:41 Follow up: With: Address: When: [facility] [place], [place] Within 1 to 2 days Discharge Orders: Discharge Patient 03/17/20 1:45:00 EDT, Discharge to Home, Self Patient Education Information: Understanding Methamphetamine Abuse and Addiction; Treating Affective (Mood) Disorders [facility] Poison Help line: . [facility] Mental Health Hotline: [place] Tobacco Quit Line: [place], [place]) [address]: [phone] [place], [place]) [address]: [phone] [facility] [address] [place], [place]: [phone] Normal [facility] hCG Quantitativeon 0 Beta hCG Qnt 1.7 mIU/mL Normal 0.0-4.9 [facility] Comment on above: Result Comment: 0.0 - 4.9 Negative for 5.0 - 25.0 Indeterminant for : Suggest repeat in 72 hours. >25.0 Positive for Performed By: #### H CG ####[place] [address] .UA Microscp Aon 03-16-2020 UA Hyline Cast Qual >20 Abnormal Negative [facility] Comment on above: Performed By: #### C [id number] ####[place] [address] UA Mucus Present Abnormal Absent [facility] Comment on above: Performed By: #### C [id number] ####[place] [id number] UA RBC Quant 12 /HPF High 0-5 [facility] Comment on above: Performed By: #### C [id number] ####[address] [address] UA Squepi Cells Quant 6 /HPF Normal 0-29 [facility] Comment on above: Performed By: #### C [id number] ####[address] [address] UA WBC Quant 7 /HPF High 0-5 [facility] Comment on above: Performed By: #### C [id number] ####[facility] [place] [address] .eGFRon 03-16-2020 eGFR AA 52 mL/min/1.73m? Low >=60 [facility] Comment on above: Result Comment: Resu lt = 0-14.9 mL/min/1.73 m2 Kidney failure or Dialysis Result = 15-29 mL/min/1.73 m2 Severe decrease in GFR Result = 30-59 mL/min/1.73 m2 Moderate decrease in GFR Result >= 60 mL/min/1.73 m2 Normal or increased GFR Performed By: #### E GFR #### [address] [address] eGFR Non-AA 43 mL/min/1.73m? Low >=60 [facility] Comment on above: Result Comment: [...] dosing. Performed By: #### E GFR #### [address] [address] CBC w/ Diffon 03-16-2020 Erythrocyte distribution width (RBC) [Ratio] 15.9 % High 11.6-14.8 [facility] Comment on above: Performed By: #### C BC #### [address] [address] Hematocrit (Bld) [Volume fraction] 37.5 % Normal 36.0-46.0 [facility] Comment on above: Performed By: #### C BC #### [address] [address] Hemoglobin (Bld) [Mass/Vol] 12.5 g/dL Normal 12.0-16.0 [facility] Comment on above: Performed By: #### C BC #### [address] [address] MCH (RBC) [Entitic mass] 27.4 pg Normal 27.0-35.0 [facility] Comment on above: Performed By: #### C BC #### [address] [address] MCHC (RBC) [Mass/Vol] 33.2 % Normal 31.0-37.0 [facility] Comment on above: Performed By: #### C BC #### [address] [address] MCV (RBC) [Entitic vol] 82.4 fL Normal 80.0-100.0 [facility] Comment on above: Performed By: #### C BC #### [address] [address] Platelet mean volume (Bld) [Entitic vol] 9.4 fL Normal 6.7-10.6 [facility] Comment on above: Performed By: #### C BC #### [address] [address] Platelets (Bld) [#/Vol] 307 x10*3/mcL Normal 150-350 [facility] Comment on above: Performed By: #### C BC #### [address] [address] RBC (Bld) [#/Vol] 4.55 x10*6/mcL Normal 3.80-5.20 [facility] Comment on above: Performed By: #### C BC #### [address] [address] WBC (Bld) [#/Vol] 12.9 x10*3/mcL High 4.5-11.0 [facility] Comment on above: Performed By: #### C BC #### [address] [address] CMPon 03-16-2020 Albumin [Mass/Vol] 5.2 g/dL High 3.2-4.9 [facility] Comment on above: Result Comment: [facility] [place] [facility] updated the methodology used for albumin testing on 04/24/18. Albumin measurement was performed using a bromcresol purple dye-binding assay. Performed By: #### C OMP #### [address] [address] Albumin/Globulin [Mass ratio] 1.5 {ratio} Normal 1.1-2.2 [facility] Comment on above: Performed By: #### C OMP #### [address] [address] Alk Phos 47 IU/L Normal 32-91 [facility] Comment on above: Performed By: #### C OMP #### [address] [address] ALT [Catalytic activity/Vol] 19 U/L Normal 14-54 [facility] Comment on above: Performed By: #### C OMP #### [address] [address] Anion gap [Moles/Vol] 22 mmol/L High 7-17 [facility] Comment on above: Performed By: #### C OMP #### [address] [address] AST [Catalytic activity/Vol] 31 U/L Normal 15-41 [facility] Comment on above: Performed By: #### C OMP #### [address] [place] [address] Bili Total 1.4 mg/dL High 0.3-1.2 [facility] Comment on above: Performed By: #### C OMP #### [address] [address] Calcium [Mass/Vol] 10.2 mg/dL Normal 8.5-10.3 [facility] Comment on above: Performed By: #### C OMP #### [address] [address] Chloride [Moles/Vol] 100 mmol/L Normal 98-110 [facility] Comment on above: Performed By: #### C OMP #### [address] [address] CO2 [Moles/Vol] 19 mmol/L Low 22-32 [facility] Comment on above: Performed By: #### C OMP #### [address] [address] Creatinine [Mass/Vol] 1.47 mg/dL High 0.44-1.03 [facility] Comment on above: Performed By: #### C OMP #### [address] [address] Glucose [Mass/Vol] 85 mg/dL Normal 70-99 [facility] Comment on above: Performed By: #### C OMP #### [address] [address] Potassium [Moles/Vol] 3.7 mmol/L Normal 3.4-4.8 [facility] Comment on above: Performed By: #### C OMP #### [address] [address] Protein [Mass/Vol] 8.7 g/dL High 6.5-8.1 [facility] Comment on above: Performed By: #### C OMP #### [address] [address] Sodium [Moles/Vol] 137 mmol/L Normal 133-142 [facility] Comment on above: Performed By: #### C OMP #### [address] [address] Urea nitrogen [Mass/Vol] 25 mg/dL Normal 8-26 [facility] Comment on above: Performed By: #### C OMP #### [address] [address] Urea nitrogen/Creatinine [Mass ratio] 17.0 mg/mg Normal 10.0-20.0 [facility] Comment on above: Performed By: #### C OMP #### [address] [address] CPKon 03-16-2020 Creatine Phosphokinase 439 IU/L High 38-234 [facility] Comment on above: Performed By: #### C P #### [address] [address] Diff Autoon 03-16-2020 Baso Absolute 0.0 x10*3/mcL Normal 0.0-0.2 [facility] Comment on above: Performed By: #### . Automated Diff #### [address] [address] Basophils/100 WBC (Bld) 0.4 % Normal 0.0-1.5 [facility] Comment on above: Performed By: #### . Automated Diff #### [address] [address] Eos Absolute 0.0 x10*3/mcL Normal 0.0-0.4 [facility] Comment on above: Performed By: #### . Automated Diff #### [address] [address] Eosinophils/100 WBC (Bld) 0.1 % Normal 0.0-5.4 [facility] Comment on above: Performed By: #### . Automated Diff #### [address] [address] Lymphocytes (Bld) [#/Vol] 1.4 x10*3/mcL Normal 1.0-4.8 [facility] Comment on above: Performed By: #### . Automated Diff #### [address] [address] Lymphocytes/100 WBC (Bld) 10.8 % Low 27.2-40.8 [facility] Comment on above: Performed By: #### . Automated Diff #### [address] [address] [place] Absolute 1.5 x10*3/mcL High 0.1-1.1 [facility] Comment on above: Performed By: #### . Automated Diff #### [facility] [address] [place] [address] Monocytes/100 WBC (Bld) 11.4 % Normal 3.7-11.9 [facility] Comment on above: Performed By: #### . Automated Diff #### [facility] [address] [place] [address] Neutro Absolute 10.0 x10*3/mcL High 1.8-7.7 [facility] Comment on above: Performed By: #### . Automated Diff #### [facility] [address] [place] [address] Neutro Auto 77.3 % High 47.2-70.8 [facility] Comment on above: Performed By: #### . Automated Diff #### [address] [address] ED Note-Nursingon 03-16-2020 ED Note-Nursing Lab called about add ons Electronically signed by Barbara Holman 03/16/20 20:49 EDT Normal [facility] ED Note-Physicianon 03-16-20 ED Note-Physician Chief [...] that she has residential set up at [facility] in [place], [place] but she has to detox first. [...] well. She was seen by Alonso, social service director who has arranged for her to go to [facility] tomorrow as patient is interested in treatment. Verbally contracted to safety and filled out a safety plan. Alonso with social work spoke with director of infection prevention, Jelena who will arrange for further follow-up when they arrive tomorrow. Family is agreeable with plan. Patient has good support. They will return if any changes of symptoms or concern. Silvia Castañeda scribing for and in the presence of Dr. Cornell. Scribe Attestation: The information in this document, created by the medical records field technician for me, accurately reflects the services I [...] High Lymph Auto 03/16/20 20:39 10.8 Low [place] Auto 03/16/20 20:39 11.4 Eos Auto 03/16/20 20:39 0.1 Basophil Auto 03/16/20 20:39 0.4 Neutro Absolute 03/16/20 20:39 10.0 High Lymph Absolute 03/16/20 20:39 1.4 [place] Absolute 03/16/20 20:39 1.5 High Eos Absolute [...] Lima Cornell MD 03/17/2020 04:16 EDT Normal [facility] Ethanolon 03-16-2020 Ethanol [Mass/Vol] mg/dL Normal <=9 [facility] Comment on above: Result Comment: To c onvert mg/dL to g/dL, divide result by 1,000. Legal limit of intoxication is 80 mg/dL (0.08 g/dL). Performed By: #### A LC #### [address] [address] UA w Culture if Indon 2019 Color (U) Terri Normal [facility] Comment on above: Performed By: #### U CI #### [address] [address] Glucose (U) [Mass/Vol] Negative Normal Negative [facility] Comment on above: Performed By: #### U CI #### [address] [address] Ketones Ql (U) 20 mg/dL Abnormal Negative [facility] Comment on above: Performed By: #### U CI #### [address] [address] UA Blood Small Abnormal Negative [facility] Comment on above: Performed By: #### U CI #### [address] [address] UA Clarity Cloudy Normal [facility] Comment on above: Performed By: #### U CI #### [address] [address] UA Leukocyte Esterase Trace Abnormal Negative [facility] Comment on above: Performed By: #### U CI #### [address] [address] UA Nitrite Negative Normal Negative [facility] Comment on above: Performed By: #### U CI #### [address] [address] UA pH 5.0 Normal 4.5 - 7.8 [facility] Comment on above: Performed By: #### U CI #### [address] [address] UA Protein 100 mg/dL Abnormal Negative [facility] Comment on above: Performed By: #### U CI #### [address] [address] UA Source Clean Catch Normal [facility] Comment on above: Performed By: #### U CI #### [address] [address] UA Spec Grav 1.025 Normal 1.003-1.035 [facility] Comment on above: Performed By: #### U CI #### [address] [address] UA Urobilinogen 0.2 mg/dL Normal 0.2 - 1.0 [facility] Comment on above: Performed By: #### U CI #### [place] [id number] Urobilinogen Qn (U) Small Abnormal Negative [facility] Comment on above: Performed By: #### U CI #### [address] [address] UDS Compon 03-16-2020 Creatinine [Mass/Vol] mg/dL Normal [facility] Comment on above: Performed By: #### C [id number] #### [address] [address] Ur Amph Scrn Positive Abnormal NEG = <1000 [facility] Comment on above: Result Comment: This unconfirmed positive screening result is to be used for medical treatment purposes only. Unconfirmed screening results must not be used for non-medical purposes. (e.g. employment testing, legal testing). Performed By: #### C [id number] #### [address] [address] Ur Anastasia Scrn Negative Normal NEG = <200 [facility] Comment on above: Performed By: #### C [id number] #### [facility] [address] [place] [address] Ur Benzodia Scrn Negative Normal NEG = <200 [facility] Comment on above: Performed By: #### C [id number] #### [facility] [address] [place] [address] Ur Cannab Scrn Negative Normal NEG = <50 [facility] Comment on above: Performed By: #### C [id number] #### [facility] [address] [place] [address] [place] [address] Ur Cocaine Scrn Negative Normal NEG = <300 [facility] Comment on above: Performed By: #### C [id number] #### [address] [place] [address] Ur Methadone Scn Negative Normal NEG = <300 [facility] Comment on above: Performed By: #### C [id number] #### [address] [place] [address] Ur Opiate Scrn Negative Normal NEG = <300 [facility] Comment on above: Performed By: #### C [id number] #### [facility] [address] [place] [address], [place] [address] Ur Oxy Screen Negative Normal NEG = <100 [facility] Comment on above: Performed By: #### C [id number] #### [facility] [address] [place] [address] [place] [address] Ur Oxy Scrn Qnt 54 ng/mL Normal <=99 [facility] Comment on above: Performed By: #### C [id number] #### [facility] [address] [place] [address] [place] [address] Ur PCP Scrn Negative Normal NEG = <25 [facility] Comment on above: Performed By: #### C [id number] #### [address] [place] [address] UA pH 5.0 Normal 4.5 - 7.8 [facility] Comment on above: Performed By: #### C [id number] #### [facility] [address] [place] [address] UA Spec Grav 1.024 Normal 1.003-1.035 [facility] Comment on above: Performed By: #### C [id number] #### [facility] [address] [place] [address] Chlamydia/GC DNA, Uron 11-23 Chlamydia Probe, Ur Negative Normal NEG [facility] Comment on above: Result Comment: CHLA MYDIA [...] Performed By: #### H IVCMB, PHEP #### [address] [id number] Maintenance Services Dispatcher: Dom Fowler MD #### CP #### [facility] [address] [place], [facility] Maintenance Services Dispatcher: Shakeel Graham MD Gonorrhea Probe, Ur Negative Normal NEG [facility] Comment on above: Result Comment: NEIS SERIA [...] Performed By: #### H IVCMB, PHEP #### [place] [address] [place], [place] [id number] Maintenance Services Dispatcher: Dom Fowler MD #### CP #### [facility] [address] [place] [address] Maintenance Services Dispatcher: Shakeel Graham MD Cult,Urineon 11-22-2019 Cult,Urine Specimen Description .VOIDED URINE Special Requests NOT REPORTED Culture NO SIGNIFICANT GROWTH Report Status FINAL 11/22/2019 Normal [facility] Comment on above: Performed By: #### H IVCMB, PHEP #### [facility] [address] [place] [address] Maintenance Services Dispatcher: Dom Fowler MD #### CP #### [facility] [address] [place] [address] Maintenance Services Dispatcher: Shakeel Graham MD HIV Ag/Abon 11-21-2019 HIV Ag/Ab NONREACTIVE Normal NR [facility] Comment on above: Result Comment: No l aboratory evidence of HIV infection. If acute HIV infection is suspected, consider testing for HIV-1 RNA. Performed By: #### H IVCMB, PHEP #### [place] [address] [place] [address] Maintenance Services Dispatcher: Dom Fowler MD #### CP #### [facility] [address] [place] [address] Maintenance Services Dispatcher: Shakeel Graham MD HIV Screenon 11-21-2019 HIV Ag/Ab NONREACTIVE NONREACTIVE [place], [place] Comment on above: No laboratory eviden ce of HIV infection. If acute HIV infection is suspected, consider testing for HIV-1 RNA. Hep C Abon 11-21-2019 Hep C Ab REACTIVE Abnormal NR [facility] Comment on above: Result Comment: The hepatitis [...] Performed By: #### H IVCMB, PHEP #### [facility] [address] [place] [address] Maintenance Services Dispatcher: Dom Fowler MD #### CP #### [facility] [address] [place] [address] [place] [address] Maintenance Services Dispatcher: Shakeel Graham MD Profileon 0 Hep B Surf Ag NONREACTIVE Normal NR [facility] Comment on above: Performed By: #### H IVCMB, PHEP #### [place] [address] [place] [address] Maintenance Services Dispatcher: Dom Fowler MD #### CP #### [address] [place] [address] Maintenance Services Dispatcher: Shakeel Graham MD T.pallidum Ab Screen NONREACTIVE Normal NR [facility] Comment on above: Result Comment: T. pallidum antibodies are not detected. There is no serological evidence of infection with T. pallidum (early primary syphilis cannot be excluded). Retest in 2-4 weeks if syphilis is clinically suspect. Performed By: #### H IVCMB, PHEP #### [address] [address] Maintenance Services Dispatcher: Dom Fowler MD #### CP #### [address] [place], [place] [id number] Maintenance Services Dispatcher: Shakeel Graham MD Rubella Ab, IgG 323.1 IU/mL Normal [facility] Comment on above: Result Comment: REFERENCE RANGE: <5.0 NON-REACTIVE (non-immune) 5.0 TO 9.9 EQUIVOCAL >=10.0 REACTIVE (immune) Performed By: #### H IVCMB, PHEP #### [address] [address] Maintenance Services Dispatcher: Dom Fowler MD #### CP #### [address] [place], [place] [address]35[address] Maintenance Services Dispatcher: Shakeel Graham MD HCG, Quanton 11-20-2019 HCG, Quant [address] IU/L High <5 [facility] Comment on above: Result Comment: Non-preg premeno [...] Performed By: #### H IVCMB, PHEP #### [facility] [employer] [address] [place] [address] Maintenance Services Dispatcher: Dom Fowler MD #### CP #### [facility] [address] [place] [address] Maintenance Services Dispatcher: Shakeel Graham MD HCG, Quantitative, on 11-20-2019 hCG Quant 585[address] High <5 IU/L [place], [place] Comment on above: Non-preg premeno <=5 Postmeno <=8 Male <=3 If HCG results do not concur with clinical observations, additional testing to confirm results is recommended. Elevated results not associated with may be found in patients with other diseases such as tumors of the germ cells (testis, ovaries, etc.), bladder, pancreas, stomach, lungs, and liver. Interpretation and review of laboratory results Abnormal [place], [place] Hepatitis C Antibodyon 11-19 Hepatitis C Ab REACTIVE Abnormal NONREACTIVE [place], [place] Comment on above: The hepatitis C [...] Interpretation and review of laboratory results Abnormal [place], [place] TYPE AND SCREENon 0 11-20-2019 ABO/Rh Positive [place], [place] Profileon 0 Abs. Basophil 0.03 k/uL Normal 0.00-0.20 [facility] Comment on above: Performed By: #### H IVCMB, PHEP #### [facility] [employer] [address] [place] [address] Maintenance Services Dispatcher: Dom Fowler MD #### CP #### [facility] [address] [place] [address] [address]. [place] [phone] ( Maintenance Services Dispatcher: Shakeel Graham MD Abs.Imm.Granulocyte <0.03 Normal 0.00-0.30 [facility] Comment on above: Performed By: #### H IVCMB, PHEP #### [place] [address] Maintenance Services Dispatcher: Dom Fowler MD #### CP #### [address] [place] [phone] ( Maintenance Services Dispatcher: Shakeel Graham MD Abs.Neutrophil (Seg) 2.95 k/uL Normal 1.50-8.10 [facility] Comment on above: Performed By: #### H IVCMB, PHEP #### [place] [address] Maintenance Services Dispatcher: Dom Fowler MD #### CP #### [address] [place] [phone] ( Maintenance Services Dispatcher: Shakeel Graham MD Basophils/100 WBC (Bld) 1 % Normal 0-2 [facility] Comment on above: Performed By: #### H IVCMB, PHEP #### [place] [address] Maintenance Services Dispatcher: Dom Fowler MD #### CP #### [facility] [address] [place] [address] [place] [address] Maintenance Services Dispatcher: Shakeel Graham MD Eosinophils (Bld) [#/Vol] 0.09 10*3/uL Normal 0.00-0.44 [facility] Comment on above: Performed By: #### H IVCMB, PHEP #### [address] [address] Maintenance Services Dispatcher: Dom Fowler MD #### CP #### [address] [place], [place] [phone] Maintenance Services Dispatcher: Shakeel Graham MD Eosinophils/100 WBC (Bld) 2 % Normal 1-4 [facility] Comment on above: Performed By: #### H IVCMB, PHEP #### [address] [address] Maintenance Services Dispatcher: Dom Fowler MD #### CP #### [address] [place], [place] [phone] Maintenance Services Dispatcher: Shakeel Graham MD Erythrocyte distribution width (RBC) [Ratio] 14.0 % Normal 11.8-14.4 [facility] Comment on above: Performed By: #### H IVCMB, PHEP #### [address] [id number] Maintenance Services Dispatcher: Dom Fowler MD #### CP #### [address] [place], [place] [phone] Maintenance Services Dispatcher: Shakeel Graham MD Hematocrit (Bld) [Volume fraction] 37.7 % Normal 36.3-47.1 [facility] Comment on above: Performed By: #### H IVCMB, PHEP #### [address] [address] Maintenance Services Dispatcher: Dom Fowler MD #### CP #### [address] [place], [place] [address] Maintenance Services Dispatcher: Shakeel Graham MD Hemoglobin (Bld) [Mass/Vol] 11.8 g/dL Low 11.9-15.1 [facility] Comment on above: Performed By: #### H IVCMB, PHEP #### [address] [address] Maintenance Services Dispatcher: Dom Fowler MD #### CP #### [address] [place] [phone] Maintenance Services Dispatcher: Shakeel Graham MD Immature granulocytes (Bld) [#/Vol] 0 % Normal 0 [facility] Comment on above: Performed By: #### H IVCMB, PHEP #### [address] [address] Maintenance Services Dispatcher: Dom Fowler MD #### CP #### [facility] [address] [place] [phone] Maintenance Services Dispatcher: Shakeel Graham MD Lymphocytes (Bld) [#/Vol] 1.50 10*3/uL Normal 1.10-3.70 [facility] Comment on above: Performed By: #### H IVCMB, PHEP #### [address] [address] Maintenance Services Dispatcher: Dom Fowler MD #### CP #### [facility] [address] [place] [address] [place] [phone] Maintenance Services Dispatcher: Shakeel Graham MD Lymphocytes/100 WBC (Bld) 30 % Normal 24-43 [facility] Comment on above: Performed By: #### H IVCMB, PHEP #### [address] [address] Maintenance Services Dispatcher: Dom Fowler MD #### CP #### [address] [place] [phone] Maintenance Services Dispatcher: Shakeel Graham MD MCH (RBC) [Entitic mass] 26.5 pg Normal 25.2-33.5 [facility] Comment on above: Performed By: #### H IVCMB, PHEP #### [address] [address] Maintenance Services Dispatcher: Dom Fowler MD #### CP #### [facility] [address] [place] [phone] Maintenance Services Dispatcher: Shakeel Graham MD MCHC (RBC) [Mass/Vol] 31.3 g/dL Normal 28.4-34.8 [facility] Comment on above: Performed By: #### H IVCMB, PHEP #### [address] [address] Maintenance Services Dispatcher: Dom Fowler MD #### CP #### [address] [place] [phone] Maintenance Services Dispatcher: Shakeel Graham MD MCV (RBC) [Entitic vol] 84.5 fL Normal 82.6-102.9 [facility] Comment on above: Performed By: #### H IVCMB, PHEP #### [address] [address] Maintenance Services Dispatcher: Dom Fowler MD #### CP #### [address] [place] [phone] Maintenance Services Dispatcher: Shakeel Graham MD Monocytes (Bld) [#/Vol] 0.37 10*3/uL Normal 0.10-1.20 [facility] Comment on above: Performed By: #### H IVCMB, PHEP #### [address] [address] Maintenance Services Dispatcher: Dom Fowler MD #### CP #### [address] [place] [phone] Maintenance Services Dispatcher: Shakeel Graham MD Monocytes/100 WBC (Bld) 8 % Normal 3-12 [facility] Comment on above: Performed By: #### H IVCMB, PHEP #### [address] [address] Maintenance Services Dispatcher: Dom Fowler MD #### CP #### [address] [place] [address] Maintenance Services Dispatcher: Shakeel Graham MD Neutrophil (Seg) 59 % Normal 36-65 [facility] Comment on above: Performed By: #### H IVCMB, PHEP #### [place] [address] [place] [address] Maintenance Services Dispatcher: Dom Fowler MD #### CP #### [facility] [address] [place], [place] [phone] Maintenance Services Dispatcher: Shakeel Graham MD NRBC Automated 0.0 per 100 WBC Normal 0.0 [facility] Comment on above: Performed By: #### H IVCMB, PHEP #### [address] [address] Maintenance Services Dispatcher: Dom Fowler MD #### CP #### [facility] [address] [place] [phone] Maintenance Services Dispatcher: Shakeel Graham MD Platelet mean volume (Bld) [Entitic vol] 11.2 fL Normal 8.1-13.5 [facility] Comment on above: Performed By: #### H IVCMB, PHEP #### [address] [address] Maintenance Services Dispatcher: Dom Fowler MD #### CP #### [facility] [address] [place] [address] [place] [phone] Maintenance Services Dispatcher: Shakeel Graham MD Platelets (Bld) [#/Vol] 254 10*3/uL Normal 138-453 [facility] Comment on above: Performed By: #### H IVCMB, PHEP #### [address] [address] Maintenance Services Dispatcher: Dom Fowler MD #### CP #### [facility] [address] [place] [address] [place], [place] [phone] Maintenance Services Dispatcher: Shakeel Graham MD RBC (Bld) [#/Vol] 4.46 10*6/uL Normal 3.95-5.11 [facility] Comment on above: Performed By: #### H IVCMB, PHEP #### [address] [address] Maintenance Services Dispatcher: Dom Fowler MD #### CP #### [facility] [address] [place] [address] [place] [address] Maintenance Services Dispatcher: Shakeel Graham MD WBC (Bld) [#/Vol] 5.0 10*3/uL Normal 3.5-11.3 [facility] Comment on above: Performed By: #### H IVCMB, PHEP #### [address] [address] Maintenance Services Dispatcher: Dom Fowler MD #### CP #### [address] [place] [address] Maintenance Services Dispatcher: Shakeel Graham MD Auto Diff Performed NOT REPORTED Normal [facility] Comment on above: Performed By: #### H IVCMB, PHEP #### [address] [address] Maintenance Services Dispatcher: Dom Fowler MD #### CP #### [address] [place] [address] Maintenance Services Dispatcher: Shakeel Graham MD Platelets (Bld) [#/Vol] NOT REPORTED Normal [facility] Comment on above: Performed By: #### H IVCMB, PHEP #### [address] [address] Maintenance Services Dispatcher: Dom Fowler MD #### CP #### [address] [place] [address] Maintenance Services Dispatcher: Shakeel Graham MD RBC morphology finding Nom (Bld) NOT REPORTED Normal [facility] Comment on above: Performed By: #### H IVCMB, PHEP #### [address] [address] Maintenance Services Dispatcher: Dom Fowler MD #### CP #### [address] [place] [address] Maintenance Services Dispatcher: Shakeel Graham MD WBC Morphology NOT REPORTED Normal [facility] Comment on above: Performed By: #### H IVCMB, PHEP #### [address] [id number] Maintenance Services Dispatcher: Dom Fowler MD #### CP #### [address] [place] [place] [id number] Maintenance Services Dispatcher: Shakeel Graham MD Type + Scrnon 11-19 Type + Scrn Negative Normal [facility] Comment on above: Performed By: #### H IVCMB, PHEP #### [address] [address] Maintenance Services Dispatcher: Dom Fowler MD #### CP #### [address] [place] [phone] Maintenance Services Dispatcher: Shakeel Graham MD Toxicology [facility] Amphetamine(s),Ur Negative Normal NEG [facility] Comment on above: Performed By: #### H IVCMB, PHEP #### [address] [address] Maintenance Services Dispatcher: Dom Fowler MD #### CP #### [address] [place], [place] [phone] Maintenance Services Dispatcher: Shakeel Graham MD Barbiturate(s),Ur Negative Normal NEG [facility] Comment on above: Performed By: #### H IVCMB, PHEP #### [address] [address] Maintenance Services Dispatcher: Dom Fowler MD #### CP #### [address] [place] [address] Maintenance Services Dispatcher: Shakeel Graham MD Benzodiazepine(s) Negative Normal NEG [facility] Comment on above: Performed By: #### H IVCMB, PHEP #### [facility] [address] [place] [address] Maintenance Services Dispatcher: Dom Fowler MD #### CP #### [facility] [address] [place] [address] Dr. [place], [place] [phone] Maintenance Services Dispatcher: Shakeel Graham MD Buprenorphrine, Ur Negative Normal NEG [facility] Comment on above: Performed By: #### H IVCMB, PHEP #### [address] [address] Maintenance Services Dispatcher: Dom Fowler MD #### CP #### [facility] [address] [place] [address] [place] [address] Maintenance Services Dispatcher: Shakeel Graham MD Cannabinoid(s),Ur Negative Normal NEG [facility] Comment on above: Performed By: #### H IVCMB, PHEP #### [address] [address] Maintenance Services Dispatcher: Dom Fowler MD #### CP #### [facility] [address] [place] [address] Dr. [place] [phone] Maintenance Services Dispatcher: Shakeel Graham MD Cocaine Metabolite Negative Normal [facility] Comment on above: Performed By: #### H IVCMB, PHEP #### [address] [address] Maintenance Services Dispatcher: Dom Fowler MD #### CP #### [facility] [address] [place] [address] Dr. [place], [place] [phone] Maintenance Services Dispatcher: Shakeel Graham MD Methadone Ql (U) Negative Normal NEG [facility] Comment on above: Performed By: #### H IVCMB, PHEP #### [address] [address] Maintenance Services Dispatcher: Dom Fowler MD #### CP #### [facility] [address] [place] [address] Dr. [place], [place] [phone] Maintenance Services Dispatcher: Shakeel Graham MD Methamphetamine, Ur Negative Normal NEG [facility] Comment on above: Performed By: #### H IVCMB, PHEP #### [facility] [address] [place] [address] Maintenance Services Dispatcher: Dom Fowler MD #### CP #### [address] [place], [place] [phone] Maintenance Services Dispatcher: Shakeel Graham MD Opiate(s), Ur Negative Normal NEG [facility] Comment on above: Performed By: #### H IVCMB, PHEP #### [address] [address] Maintenance Services Dispatcher: Dom Fowler MD #### CP #### [address] [place], [place] [phone] Maintenance Services Dispatcher: Shakeel Graham MD Oxycodone, Urine Negative Normal NEG [facility] Comment on above: Performed By: #### H IVCMB, PHEP #### [facility] [address] [place] [address] Maintenance Services Dispatcher: Dom Fowler MD #### CP #### [address] [place], [place] [phone] Maintenance Services Dispatcher: Shakeel Graham MD Phencyclidine, Ur Negative Normal NEG [facility] Comment on above: Performed By: #### H IVCMB, PHEP #### [address] [address] Maintenance Services Dispatcher: Dom Fowler MD #### CP #### [address] [place], [place] [phone] Maintenance Services Dispatcher: Shakeel Graham MD Propoxyphene,Urine Negative Normal NEG [facility] Comment on above: Performed By: #### H IVCMB, PHEP #### [address] [address] Maintenance Services Dispatcher: Dom Fowler MD #### CP #### [facility] [address] [place] [address] [place] [address] Maintenance Services Dispatcher: Shakeel Graham MD Tricyclic antidepressants Screen Ql (U) Negative Normal NEG [facility] Comment on above: Result Comment: Drug screen results are to be used for medical purposes only. All positive results are unconfirmed. Testing for employment or legal uses should be sent to a reference laboratory for confirmation. Performed By: #### H IVCMB, PHEP #### [address] [address] Maintenance Services Dispatcher: Dom Fowler MD #### CP #### [address] [place], [place] [phone] Maintenance Services Dispatcher: Shakeel Graham MD Interpretive Info NOT REPORTED Normal [facility] Comment on above: Performed By: #### H IVCMB, PHEP #### [address] [address] Maintenance Services Dispatcher: Dom Fowler MD #### CP #### [address] [place], [place] [phone] Maintenance Services Dispatcher: Shakeel Graham MD MDMA, Urine NOT REPORTED Normal NEG [facility] Comment on above: Performed By: #### H IVCMB, PHEP #### [address] [address] Maintenance Services Dispatcher: Dom Fowler MD #### CP #### [facility] [address] [place] [address] Dr. [place], [place] [phone] Maintenance Services Dispatcher: Shakeel Graham MD Urine Drug Screen, Magda grieron 11-20-2019 Amphetamine Screen, Ur Negative NEGATIVE [facility] [place] Barbiturate Screen, Ur Negative NEGATIVE [facility] [place] Benzodiazepine Screen, Urine Negative NEGATIVE [facility] [place] Buprenorphine Urine Negative NEGATIVE [facility] [place] Cannabinoid Scrn, Ur Negative NEGATIVE [facility] [place] [place] Cocaine Metabolite, Urine Negative NEGATIVE [facility] [place] MDMA, Urine NOT REPORTED NEGATIVE [facility] [place] Methadone Screen, Urine Negative NEGATIVE [facility] [place] Methamphetamine, Urine Negative NEGATIVE [facility] [place] Opiates, Urine Negative NEGATIVE [facility] [place] Oxycodone Screen, Ur Negative NEGATIVE [facility] [place] Phencyclidine, Urine Negative NEGATIVE [facility] [place] Propoxyphene, Urine Negative NEGATIVE [facility] [place] Test Information NOT REPORTED [facility] [place] Tricyclic Antidepressants, Urine Negative NEGATIVE [facility] [place] Comment on above: Drug screen results are to be used for medical purposes only. All positive results are unconfirmed. Testing for employment or legal uses should be sent to a reference laboratory for confirmation. Chlamydia/GC DNA, Uron 06-20 Chlamydia Probe, Ur Negative Normal NEG [facility] Comment on above: Result Comment: CHLA MYDIA [...] nucleic acid target. Performed By: #### U [facility] #### [address] [place] [address] Maintenance Services Dispatcher: Dom Fowler MD Gonorrhea Probe, Ur Negative Normal NEG [facility] Comment on above: Result Comment: NEIS SERIA [...] target. Performed By: #### U CGP #### [address] [address] Maintenance Services Dispatcher: Dom Fowler MD Cult,Urineon 06-20-2019 Cult,Urine Specimen Description .CLEAN CATCH URINE Special Requests NOT REPORTED Culture NO SIGNIFICANT GROWTH Report Status FINAL 06/20/2019 Normal [facility] Comment on above: Performed By: #### H IVCMB, PHEP #### [address] [address] Maintenance Services Dispatcher: Dom Fowler MD #### CP #### [facility] [address] [place] [address] Maintenance Services Dispatcher: Shakeel Graham MD HIV Ag/Abon 06-20-2019 HIV Ag/Ab NONREACTIVE Normal [facility] Comment on above: Result Comment: No l aboratory evidence of HIV infection. If acute HIV infection is suspected, consider testing for HIV-1 RNA. Performed By: #### A HCV, HIVCMB #### [address] [address] Maintenance Services Dispatcher: Dom Fowler MD Hep C Abon 06-20-2019 Hep C Ab REACTIVE Abnormal [facility] Comment on above: Result Comment: [...] Performed By: #### A HCV, HIVCMB #### [address] [address] Maintenance Services Dispatcher: Dom Fowler MD Profileon 9 T.pallidum Ab Screen NONREACTIVE Normal [facility] Comment on above: Result Comment: T. pallidum antibodies are not detected. There is no serological evidence of infection with T. pallidum (early primary syphilis cannot be excluded). Retest in 2-4 weeks if syphilis is clinically suspect. Performed By: #### P RENAT #### [address] [place] [address] Maintenance Services Dispatcher: Dom Fowler MD [facility] [address] [place] [address] Dr. [place], [place] [phone] Maintenance Services Dispatcher: Shakeel Graham MD Hep B Surf Ag NONREACTIVE Normal [facility] Comment on above: Performed By: #### P RENAT #### [address] [address] Maintenance Services Dispatcher: Dom Fowler MD [address] [place] [phone] Maintenance Services Dispatcher: Shakeel Graham MD Rubella Ab, IgG 286.1 IU/mL Normal [facility] Comment on above: Result Comment: REFERENCE RANGE: <5.0 NON-REACTIVE (non-immune) 5.0 TO 9.9 EQUIVOCAL >=10.0 REACTIVE (immune) Performed By: #### P RENAT #### [address] [address] Maintenance Services Dispatcher: Dom Fowler MD [address] [place], [facility]83 Maintenance Services Dispatcher: Shakeel Graham MD HCG, Quanton 06-19-2019 HCG, Quant 65366 IU/L High <5 [facility] Comment on above: Result Comment: Non-preg premeno <=5 Postmeno <=8 Male <=3 If HCG results do not concur with clinical observations, additional testing to confirm results is recommended. Elevated results not associated with may be found in patients with other diseases such as tumors of the germ cells (testis, ovaries, etc.), bladder, pancreas, stomach, lungs, and liver. Performed By: #### B HCG #### [facility] [address] [place] [address] [place] [address] Maintenance Services Dispatcher: Shakeel Graham MD HCG, Quantitative, on 06-19-2019 hCG Quant 21201 High <5 IU/L [place], [place] Comment on above: Non-preg premeno <=5 Postmeno <=8 Male <=3 If HCG results do not concur with clinical observations, additional testing to confirm results is recommended. Elevated results not associated with may be found in patients with other diseases such as tumors of the germ cells (testis, ovaries, etc.), bladder, pancreas, stomach, lungs, and liver. Interpretation and review of laboratory results Abnormal [place] HIV Screenon 06-19-2019 HIV Ag/Ab NONREACTIVE NONREACTIVE [place], [place] Comment on above: No laboratory eviden ce of HIV infection. If acute HIV infection is suspected, consider testing for HIV-1 RNA. Hepatitis C Antibodyon 06-19 Hepatitis C Ab REACTIVE Abnormal NONREACTIVE [facility] [place] [place] Comment on above: The hepatitis C [...] Interpretation and review of laboratory results Abnormal [place] PROFILE Ion 019 Basophils (Bld) [#/Vol] 10*3/uL [place] Basophils/100 WBC (Bld) 1 % 0 - 2 % [place] Differential Type NOT REPORTED [place] Eosinophils (Bld) [#/Vol] 0.09 10*3/uL [place] Eosinophils/100 WBC (Bld) 2 % 1 - 4 % [place] Erythrocyte distribution width (RBC) [Ratio] 15.7 % High 11.8 - 14.4 % [place] Hematocrit (Bld) [Volume fraction] 36.5 % 36.3 - 47.1 % [place] Hemoglobin (Bld) [Mass/Vol] 11.2 g/dL Low 11.9 - 15.1 g/dL [place] Hepatitis B Surface Ag NONREACTIVE NONREACTIVE [place] Immature granulocytes (Bld) [#/Vol] 0 % 0 [place] Immature granulocytes (Bld) [#/Vol] 10*3/uL [place] Interpretation and review of laboratory results Abnormal [place] Lymphocytes (Bld) [#/Vol] 1.98 10*3/uL [place] Lymphocytes/100 WBC (Bld) 46 % High 24 - 43 % [place] MCH (RBC) [Entitic mass] 25.6 pg 25.2 - 33.5 pg [place] MCHC (RBC) [Mass/Vol] 30.7 g/dL 28.4 - 34.8 g/dL [place] MCV (RBC) [Entitic vol] 83.3 fL 82.6 - 102.9 fL [place] Monocytes (Bld) [#/Vol] 0.37 10*3/uL [place] Monocytes/100 WBC (Bld) 9 % 3 - 12 % [place] Platelet mean volume (Bld) [Entitic vol] 11.6 fL 8.1 - 13.5 fL [place] Platelets (Bld) [#/Vol] NOT REPORTED [place] Platelets (Bld) [#/Vol] 196 10*3/uL [place] RBC (Bld) [#/Vol] 4.38 10*6/uL 3.95 - 5.1 1 m/uL [place] RBC morphology finding Nom (Bld) NOT REPORTED [place] Rubella virus IgG Ql (S) 286.1 IU/mL [place] Comment on above: REFERENCE RANGE: <5.0 NON-REACTIVE (non-immune) 5.0 TO 9.9 EQUIVOCAL >=10.0 REACTIVE (immune) Segmented neutrophils/100 WBC (Bld) 42 % 36 - 65 % [place] Segs Absolute 1.75 [place], [place] T. pallidum, IgG NONREACTIVE NONREACTIVE [place] Comment on above: T. pallidum antibodies are not detected. There is no serological evidence of infection with T. pallidum (early primary syphilis cannot be excluded). Retest in 2-4 weeks if syphilis is clinically suspect. WBC (Bld) [#/Vol] 4.2 10*3/uL [place] WBC (Bld) [#/Vol] 0.0 10*3/uL 0.0 per 100 WBC [place], [place] WBC Morphology NOT REPORTED [place], [place] TYPE AND SCREENon 1 ABO/Rh Positive [place], [place] Profileon 9 Abs. Basophil <0.03 Normal 0.00-0.20 [facility] Comment on above: Performed By: #### P RENAT #### [address] [address] Maintenance Services Dispatcher: Dom Fowler MD [address] [place] [phone] Maintenance Services Dispatcher: Shakeel Graham MD Abs.Imm.Granulocyte <0.03 Normal 0.00-0.30 [facility] Comment on above: Performed By: #### P RENAT #### [address] [address] Maintenance Services Dispatcher: Dom Fowler MD [address] [place] [phone] Maintenance Services Dispatcher: Shakeel Graham MD Abs.Neutrophil (Seg) 1.75 k/uL Normal 1.50-8.10 [facility] Comment on above: Performed By: #### P RENAT #### [address] [address] Maintenance Services Dispatcher: Dom Fowler MD [address] [place] [phone] Maintenance Services Dispatcher: Shakeel Graham MD Basophils/100 WBC (Bld) 1 % Normal 0-2 [facility] Comment on above: Performed By: #### P RENAT #### [address] [address] Maintenance Services Dispatcher: Dom Fowler MD [address] Felix [facility]83 Maintenance Services Dispatcher: Shakeel Graham MD Eosinophils (Bld) [#/Vol] 0.09 10*3/uL Normal 0.00-0.44 [facility] Comment on above: Performed By: #### P RENAT #### [address] [address] Maintenance Services Dispatcher: Dom Fowler MD [address] [place] [phone] Maintenance Services Dispatcher: Shakeel Graham MD Eosinophils/100 WBC (Bld) 2 % Normal 1-4 [facility] Comment on above: Performed By: #### P RENAT #### [address] [address] Maintenance Services Dispatcher: Dom Fowler MD [address] [place] [phone] Maintenance Services Dispatcher: Shakeel Graham MD Erythrocyte distribution width (RBC) [Ratio] 15.7 % High 11.8-14.4 [facility] Comment on above: Performed By: #### P RENAT #### [address] [address] Maintenance Services Dispatcher: Dom Fowler MD [address] [place] [phone] Maintenance Services Dispatcher: Shakeel Graham MD Hematocrit (Bld) [Volume fraction] 36.5 % Normal 36.3-47.1 [facility] Comment on above: Performed By: #### P RENAT #### [address] [address] Maintenance Services Dispatcher: Dom Fowler MD [address] [place] [phone] Maintenance Services Dispatcher: Shakeel Graham MD Hemoglobin (Bld) [Mass/Vol] 11.2 g/dL Low 11.9-15.1 [facility] Comment on above: Performed By: #### P RENAT #### [address] [place] [address] Maintenance Services Dispatcher: Dom Fowler MD [facility] [address] [place] [address] Dr. [place] [phone] Maintenance Services Dispatcher: Shakeel Graham MD Immature granulocytes (Bld) [#/Vol] 0 % Normal 0 [facility] Comment on above: Performed By: #### P RENAT #### [address] [address] Maintenance Services Dispatcher: Dom Fowler MD [facility] [address] [place] [address] Dr. [place] [phone] Maintenance Services Dispatcher: Shakeel Graham MD Lymphocytes (Bld) [#/Vol] 1.98 10*3/uL Normal 1.10-3.70 [facility] Comment on above: Performed By: #### P RENAT #### [address] [address] Maintenance Services Dispatcher: Dom Fowler MD [address] [place] [address] Maintenance Services Dispatcher: Shakeel Graham MD Lymphocytes/100 WBC (Bld) 46 % High 24-43 [facility] Comment on above: Performed By: #### P RENAT #### [address] [address] Maintenance Services Dispatcher: Dom Fowler MD [facility] [address] [place] [address] [place] [phone] Maintenance Services Dispatcher: Shakeel Graham MD MCH (RBC) [Entitic mass] 25.6 pg Normal 25.2-33.5 [facility] Comment on above: Performed By: #### P RENAT #### [address] [address] Maintenance Services Dispatcher: Dom Fowler MD [address] [place], [place] [phone] Maintenance Services Dispatcher: Shakeel Graham MD MCHC (RBC) [Mass/Vol] 30.7 g/dL Normal 28.4-34.8 [facility] Comment on above: Performed By: #### P RENAT #### [address] [address] Maintenance Services Dispatcher: Dom Fowler MD [address] [place] [phone] Maintenance Services Dispatcher: Shakeel Graham MD MCV (RBC) [Entitic vol] 83.3 fL Normal 82.6-102.9 [facility] Comment on above: Performed By: #### P RENAT #### [address] [address] Maintenance Services Dispatcher: Dom Fowler MD [address] [place] [phone] Maintenance Services Dispatcher: Shakeel Graham MD Monocytes (Bld) [#/Vol] 0.37 10*3/uL Normal 0.10-1.20 [facility] Comment on above: Performed By: #### P RENAT #### [address] [address] Maintenance Services Dispatcher: Dom Fowler MD [address] [place] [address] Maintenance Services Dispatcher: Shakeel Graham MD Monocytes/100 WBC (Bld) 9 % Normal 3-12 [facility] Comment on above: Performed By: #### P RENAT #### [address] [address] Maintenance Services Dispatcher: Dom Fowler MD [address] [place] [phone] Maintenance Services Dispatcher: Shakeel Graham MD Neutrophil (Seg) 42 % Normal 36-65 [facility] Comment on above: Performed By: #### P RENAT #### [address] [place] [address] Maintenance Services Dispatcher: Dom Fowler MD [address] [place] [phone] Maintenance Services Dispatcher: Shakeel Graham MD NRBC Automated 0.0 per 100 WBC Normal 0.0 [facility] Comment on above: Performed By: #### P RENAT #### [address] [address] Maintenance Services Dispatcher: Dom Fowler MD [address] [place] [facility]83 Maintenance Services Dispatcher: Shakeel Graham MD Platelet mean volume (Bld) [Entitic vol] 11.6 fL Normal 8.1-13.5 [facility] Comment on above: Performed By: #### P RENAT #### [address] [address] Maintenance Services Dispatcher: Dom Fowler MD [address] [place] [phone] Maintenance Services Dispatcher: Shakeel Graham MD Platelets (Bld) [#/Vol] 196 10*3/uL Normal 138-453 [facility] Comment on above: Performed By: #### P RENAT #### [address] [address] Maintenance Services Dispatcher: Dom Fowler MD [address] [place] [phone] Maintenance Services Dispatcher: Shakeel Graham MD RBC (Bld) [#/Vol] 4.38 10*6/uL Normal 3.95-5.11 [facility] Comment on above: Performed By: #### P RENAT #### [address] [address] Maintenance Services Dispatcher: Dom Fowler MD [address] [place] [address] Maintenance Services Dispatcher: Shakeel Graham MD WBC (Bld) [#/Vol] 4.2 10*3/uL Normal 3.5-11.3 [facility] Comment on above: Performed By: #### P RENAT #### [address] [address] Maintenance Services Dispatcher: Dom Fowler MD [address] [place] [address] Maintenance Services Dispatcher: Shakeel Graham MD Auto Diff Performed NOT REPORTED Normal [facility] Comment on above: Performed By: #### P RENAT #### [address] [address] Maintenance Services Dispatcher: Dom Fowler MD [address] [place] [address] Maintenance Services Dispatcher: Shakeel Graham MD Platelets (Bld) [#/Vol] NOT REPORTED Normal [facility] Comment on above: Performed By: #### P RENAT #### [address] [address] Maintenance Services Dispatcher: Dom Fowler MD [address] [place] [address] Maintenance Services Dispatcher: Shakeel Graham MD RBC morphology finding Nom (Bld) NOT REPORTED Normal [facility] Comment on above: Performed By: #### P RENAT #### [address] [address] Maintenance Services Dispatcher: Dom Fowler MD [address] [place] [address] Maintenance Services Dispatcher: Shakeel Graham MD WBC Morphology NOT REPORTED Normal [facility] Comment on above: Performed By: #### P RENAT #### [address] [address] Maintenance Services Dispatcher: Dom Fowler MD [address] [place] [phone] Maintenance Services Dispatcher: Shakeel Graham MD Type + Scrnon 06-19 Type + Scrn Negative [facility] Comment on above: Performed By: #### P RTYS #### [facility] [address] [place], [place] [phone] Maintenance Services Dispatcher: Shakeel Graham MD Toxicology Scree, Urineon Amphetamine(s),Ur Negative Normal NEG [facility] Comment on above: Performed By: #### C PDAU #### [facility] [address] [place], [place] [phone] Maintenance Services Dispatcher: Shakeel Graham MD Barbiturate(s),Ur Negative Normal NEG [facility] Comment on above: Performed By: #### C PDAU #### [facility] [address] [place], [facility]83 Maintenance Services Dispatcher: Shakeel Graham MD Benzodiazepine(s) Negative Normal [facility] Comment on above: Performed By: #### C PDAU #### [facility] [address] [place] [phone] Maintenance Services Dispatcher: Shakeel Graham MD Buprenorphrine, Ur Negative Normal [facility] Comment on above: Performed By: #### C PDAU #### [facility] [address] [place], [facility]83 Maintenance Services Dispatcher: Shakeel Graham MD Cannabinoid(s),Ur Negative Normal NEG [facility] Comment on above: Performed By: #### C PDAU #### [facility] [address] [place], [place] [id number] Maintenance Services Dispatcher: Shakeel Graham MD Cocaine Metabolite Negative Normal [facility] Comment on above: Performed By: #### C PDAU #### [facility] [address] [place], [place] [id number] Maintenance Services Dispatcher: Shakeel Graham MD Methadone Ql (U) Negative Normal NEG [facility] Comment on above: Performed By: #### C PDAU #### [facility] [address] [place], [place] [phone] Maintenance Services Dispatcher: Shakeel Graham MD Methamphetamine, Ur Negative Normal NEG [facility] Comment on above: Performed By: #### C PDAU #### [facility] [address] [place], [place] [id number] Maintenance Services Dispatcher: Shakeel Graham MD Opiate(s), Ur Negative Normal NEG [facility] Comment on above: Performed By: #### C PDAU #### [facility] [address] [place] [address] Maintenance Services Dispatcher: Shakeel Graham MD Oxycodone, Urine Negative Normal NEG [facility] Comment on above: Performed By: #### C PDAU #### [facility] [address] [place], [place] [phone] Maintenance Services Dispatcher: Shakeel Graham MD Phencyclidine, Ur Negative Normal [facility] Comment on above: Performed By: #### C PDAU #### [facility] [address] [place], [place] 1923483 Maintenance Services Dispatcher: Shakeel Graham MD Propoxyphene,Urine Negative Normal NEG [facility] Comment on above: Performed By: #### C PDAU #### [facility] [address] [place], [place] [id number] Maintenance Services Dispatcher: Shakeel Graham MD Tricyclic antidepressants Screen Ql (U) Positive Abnormal NEG [facility] Comment on above: Result Comment: Drug screen results are to be used for medical purposes only. All positive results are unconfirmed. Testing for employment or legal uses should be sent to a reference laboratory for confirmation. Performed By: #### C PDAU #### [facility] [address] [place] [address] Maintenance Services Dispatcher: Shakeel Graham MD Interpretive Info NOT REPORTED Normal [facility] Comment on above: Performed By: #### C PDAU #### [facility] [address] [place] [address] Maintenance Services Dispatcher: Shakeel Graham MD MDMA, Urine NOT REPORTED Normal NEG [facility] Comment on above: Performed By: #### C PDAU #### [facility] [address] [place] [address] Maintenance Services Dispatcher: Shakeel Graham MD Urine Drug Screen, Magda [...] HIV Ag/Ab NONREACTIVE Normal NR [facility] Comment on above: Result Comment: No l aboratory evidence of HIV infection. If acute HIV infection is suspected, consider testing for HIV-1 RNA. Performed By: #### H IVCMB, PHEP #### [facility] [employer] [facility] [place] [address] Maintenance Services Dispatcher: Dom Fowler MD #### CP #### [facility] [address] [place], [place] [phone] Maintenance Services Dispatcher: Shakeel Graham MD Hepatitis Acute [facility] 05-10 Hep A Ab,IgM NONREACTIVE Normal NR [facility] Comment on above: Performed By: #### H IVCMB, PHEP #### [address] [address] Maintenance Services Dispatcher: Dom Fowler MD #### CP #### [address] [place] [address] Maintenance Services Dispatcher: Shakeel Graham MD Hep B Core Ab,IgM NONREACTIVE Normal [facility] Comment on above: Performed By: #### H IVCMB, PHEP #### [address] [address] Maintenance Services Dispatcher: Dom Fowler MD #### CP #### [facility] [address] [place] [address] Dr. [place], [place] [phone] Maintenance Services Dispatcher: Shakeel Graham MD Hep B Surf Ag NONREACTIVE Normal [facility] Comment on above: Performed By: #### H IVCMB, PHEP #### [address] [address] Maintenance Services Dispatcher: Dom Fowler MD #### CP #### [facility] [address] [place] [address] Dr. [place], [place] [phone] Maintenance Services Dispatcher: Shakeel Graham MD Hep C Ab REACTIVE Abnormal [facility] Comment on above: Result Comment: [...] Performed By: #### H IVCMB, PHEP #### [address] [place] [address] Maintenance Services Dispatcher: Dom Fowler MD #### CP #### [facility] [address] [place] [address] [place], [place] [phone] Maintenance Services Dispatcher: Shakeel Graham MD Comp Metabolic Profon 2018 (cont.) Normal [facility] Comment on above: Result Comment: Aver age GFR for 20-29 years old: 116 mL/min/1.73sq m Chronic Kidney Disease: <60 mL/min/1.73sq m Kidney failure: <15 mL/min/1.73sq m eGFR calculated using average adult body mass. Additional eGFR calculator available at: http://www.Patronpath/multiple_crcl_2011.htm Performed By: #### H IVCMB, PHEP #### [address] [address] Maintenance Services Dispatcher: Dom Fowler MD #### CP #### [facility] [address] [place] [address] [place], [place] [phone] Maintenance Services Dispatcher: Shakeel Graham MD Albumin [Mass/Vol] 4.3 g/dL Normal 3.5-5.2 [facility] Comment on above: Performed By: #### H IVCMB, PHEP #### [address] [address] Maintenance Services Dispatcher: Dom Fowler MD #### CP #### [address] [place], [place] [phone] Maintenance Services Dispatcher: Shakeel Graham MD Albumin/Globulin [Mass ratio] 1.4 {ratio} Normal 1.0-2.5 [facility] Comment on above: Performed By: #### H IVCMB, PHEP #### [address] [address] Maintenance Services Dispatcher: Dom Fowler MD #### CP #### [facility] [address] [place], [place] [phone] Maintenance Services Dispatcher: Shakeel Graham MD Alkaline Phos 50 U/L Normal 35-104 [facility] Comment on above: Performed By: #### H IVCMB, PHEP #### [address] [address] Maintenance Services Dispatcher: Dom Fowler MD #### CP #### [facility] [address] [place] [address] Dr. [place], [place] [phone] Maintenance Services Dispatcher: Shakeel Graham MD ALT [Catalytic activity/Vol] 9 U/L Normal 5-33 [facility] Comment on above: Performed By: #### H IVCMB, PHEP #### [address] [address] Maintenance Services Dispatcher: Dom Fowler MD #### CP #### [address] [place], [place] [phone] Maintenance Services Dispatcher: Shakeel Graham MD Anion gap [Moles/Vol] 8 mmol/L Low 9-17 [facility] Comment on above: Performed By: #### H IVCMB, PHEP #### [address] [address] Maintenance Services Dispatcher: Dom Fowler MD #### CP #### [address] [place], [place] [phone] Maintenance Services Dispatcher: Shakeel Graham MD AST [Catalytic activity/Vol] 15 U/L Normal <32 [facility] Comment on above: Performed By: #### H IVCMB, PHEP #### [address] [address] Maintenance Services Dispatcher: Dom Fowler MD #### CP #### [address] [place], [place] 2154883 Maintenance Services Dispatcher: Shakeel Graham MD Bilirubin Ql (U) 0.31 mg/dL Normal 0.3-1.2 [facility] Comment on above: Performed By: #### H IVCMB, PHEP #### [facility] [address] [place] [address] Maintenance Services Dispatcher: Dom Fowler MD #### CP #### [facility] [address] [place], [place] [phone] Maintenance Services Dispatcher: Shakeel Graham MD BUN/CRE Ratio 20 Normal 9-20 [facility] Comment on above: Performed By: #### H IVCMB, PHEP #### [address] [address] Maintenance Services Dispatcher: Dom Fowler MD #### CP #### [facility] [address] [place], [place] [phone] Maintenance Services Dispatcher: Shakeel Graham MD Calcium [Mass/Vol] 9.4 mg/dL Normal 8.6-10.4 [facility] Comment on above: Performed By: #### H IVCMB, PHEP #### [address] [address] Maintenance Services Dispatcher: Dom Fowler MD #### CP #### [facility] [address] [place] [address] Dr. [place], [place] [phone] Maintenance Services Dispatcher: Shakeel Graham MD Chloride [Moles/Vol] 102 mmol/L Normal 98-107 [facility] Comment on above: Performed By: #### H IVCMB, PHEP #### [address] [address] Maintenance Services Dispatcher: Dom Fowler MD #### CP #### [facility] [address] [place], [place] 7702383 Maintenance Services Dispatcher: Shakeel Graham MD CO2 [Moles/Vol] 28 mmol/L Normal 20-31 [facility] Comment on above: Performed By: #### H IVCMB, PHEP #### [address] [address] Maintenance Services Dispatcher: Dom Fowler MD #### CP #### [facility] [address] [place], [place] [phone] Maintenance Services Dispatcher: Shakeel Graham MD Creatinine [Mass/Vol] 0.92 mg/dL High 0.50-0.90 [facility] Comment on above: Performed By: #### H IVCMB, PHEP #### [address] [address] Maintenance Services Dispatcher: Dom Fowler MD #### CP #### [address] [place] [address] Maintenance Services Dispatcher: Shakeel Graham MD GFR, Amer >60 Normal >60 [facility] Comment on above: Performed By: #### H IVCMB, PHEP #### [address] [address] Maintenance Services Dispatcher: Dom Fowler MD #### CP #### [facility] [address] [place] [address] Dr. [place], [place] [phone] Maintenance Services Dispatcher: Shakeel Graham MD GFR,non Amer >60 Normal >60 [facility] Comment on above: Performed By: #### H IVCMB, PHEP #### [address] [address] Maintenance Services Dispatcher: Dom Fowler MD #### CP #### [facility] [address] [place], [place] 1020383 Maintenance Services Dispatcher: Shakeel Graham MD Glucose [Mass/Vol] 91 mg/dL Normal 70-99 [facility] Comment on above: Performed By: #### H IVCMB, PHEP #### [address] [address] Maintenance Services Dispatcher: Dom Fowler MD #### CP #### [facility] [address] [place] [address] Dr. [place], [place] [phone] Maintenance Services Dispatcher: Shakeel Graham MD Potassium [Moles/Vol] 4.3 mmol/L Normal 3.7-5.3 [facility] Comment on above: Performed By: #### H IVCMB, PHEP #### [address] [address] Maintenance Services Dispatcher: Dom Fowler MD #### CP #### [address] [place], [place] 4488783 Maintenance Services Dispatcher: Shakeel Graham MD Protein [Mass/Vol] 7.4 g/dL Normal 6.4-8.3 [facility] Comment on above: Performed By: #### H IVCMB, PHEP #### [address] [address] Maintenance Services Dispatcher: Dom Fowler MD #### CP #### [address] [place], [place] 6158383 Maintenance Services Dispatcher: Shakeel Graham MD Sodium [Moles/Vol] 138 mmol/L Normal 135-144 [facility] Comment on above: Performed By: #### H IVCMB, PHEP #### [address] [address] Maintenance Services Dispatcher: Dom Fowler MD #### CP #### [address] [place], [place] 0788583 Maintenance Services Dispatcher: Shakeel Graham MD Staging: Normal [facility] Comment on above: Result Comment: Stag e 1: Some kidney damage normal GFR Stage 2: Mild kidney damage GFR 60-89 Stage 3: Moderate kidney damage GFR 30-59 Stage 4: Severe kidney damage GFR 15-29 Stage 5: Severe kidney damage GFR <15 ESRD - chronic treatment by dialysis or transplant Performed By: #### H IVCMB, PHEP #### [address] 1000408 Maintenance Services Dispatcher: Dom Fowler MD #### CP #### [facility] [address] [place] [address] Maintenance Services Dispatcher: Shakeel Graham MD Urea nitrogen [Mass/Vol] 18 mg/dL Normal 6-20 [facility] Comment on above: Performed By: #### H IVC, PHEP #### [facility] [address] [place], [place] [phone] Maintenance Services Dispatcher: Dom Fowler MD #### CP #### [facility] [address] [place] [address] Maintenance Services Dispatcher: Shakeel Graham MD [facility] Metabolic Pane [facility] 05-09-2019 Albumin [Mass/Vol] 4.3 g/dL 3.5 - 5.2 g/dL [place], [place] Albumin/Globulin [Mass ratio] 1.4 {ratio} [place] ALP [Catalytic activity/Vol] 50 U/L 35 - 104 U/L [place] ALT [Catalytic activity/Vol] 9 U/L 5 - 33 U/L [place] Anion gap [Moles/Vol] 8 mmol/L Low 9 - 17 mmol/L [place] AST [Catalytic activity/Vol] 15 U/L <32 [place] Bilirubin Ql (U) 0.31 mg/dL 0.3 - 1.2 mg/dL [place], [place] Bun/Cre Ratio 20 [place], [place] Calcium [Mass/Vol] 9.4 mg/dL 8.6 - 10. 4 mg/dL [place] Chloride [Moles/Vol] 102 mmol/L 98 - 107 mmol/L [place] CO2 [Moles/Vol] 28 mmol/L 20 - 31 mmol/L [place] Creatinine [Mass/Vol] 0.92 mg/dL High 0.5 - 0.9 mg/dL [place] GFR >60 >60 mL/min [place], [place] GFR Non- >60 >60 mL/min [place] Glucose [Mass/Vol] 91 mg/dL 70 - 99 mg/dL [place] Interpretation and review of laboratory results Abnormal [place] Potassium [Moles/Vol] 4.3 mmol/L 3.7 - 5.3 mmol/L [place] Protein [Mass/Vol] 7.4 g/dL 6.4 - 8.3 g/dL [place] Sodium [Moles/Vol] 138 mmol/L 135 - 144 mmol/L [place] Urea nitrogen [Mass/Vol] 18 mg/dL 6 - 20 mg/dL [place] Hepatitis Panel, Acuteon HAV IgM IA Qn (S) NONREACTIVE NONREACTIVE [place] Hep B Core Ab, IgM NONREACTIVE NONREACTIVE [place] Hepatitis B Surface Ag NONREACTIVE NONREACTIVE [place] Hepatitis C Ab REACTIVE Abnormal NONREACTIVE [place], [place] Comment on above: The hepatitis C [...] Interpretation and review of laboratory results Abnormal [place] Metabolic Panelon 05-09-2019 GFR/1.73 sq M predicted among non-blacks MDRD (S/P/Bld) [Vol rate/Area] [place] Comment on above: Average GFR for 20-2 9 years old: 116 mL/min/1.73sq m Chronic Kidney Disease: <60 mL/min/1.73sq m Kidney failure: <15 mL/min/1.73sq m eGFR calculated using average adult body mass. Additional eGFR calculator available at: http://www.Patronpath/multiple_crcl_2012.htm Stage 1: Some kidney damage normal GFR Stage 2: Mild kidney damage GFR 60-89 Stage 3: Moderate kidney damage GFR 30-59 Stage 4: Severe kidney damage GFR 15-29 Stage 5: Severe kidney damage GFR <15 ESRD - chronic treatment by dialysis or transplant Drug Scr, Abuse, Uron 2017 Amphetamine(s),Ur Positive Abnormal NEG [facility] Comment on above: Result Comment: (Pos itive cutoff 1000 ng/mL) Performed By: #### D AU ####[address] [address] Barbiturate(s),Ur Negative Normal NEG [facility] Comment on above: Result Comment: (Pos itive cutoff 200 ng/mL) Performed By: #### D AU ####[address] [address] Base excess Negative Normal NEG [facility] Comment on above: Result Comment: (Pos itive cutoff 300 ng/mL) Performed By: #### D AU ####[address] [address] Benzodiazepine(s) Negative Normal NEG [facility] Comment on above: Result Comment: (Pos itive cutoff 200 ng/mL) Performed By: #### D AU ####[address] [address] Cannabinoid(s),Ur Negative Normal NEG [facility] Comment on above: Result Comment: (Pos itive cutoff 50 ng/mL) Performed By: #### D AU ####[address] [address] Interpretive Info Assay provides medical screening only. The absence of expected drug(s) and/or Normal [facility] Comment on above: Result Comment: meta bolite(s) may indicate diluted or adulterated urine, limitations of testing or timing of collection.Testing for legal purposes should be confirmed by another method. To request confirmation of test result, please call the lab within 7 days of sample submission.Performed at [address] [address] Performed By: #### D AU ####[address] [address] Opiate(s), Ur Negative Normal NEG [facility] Comment on above: Result Comment: (Pos itive cutoff 300 ng/mL) Performed By: #### D AU ####[address] [address] Oxycodone, Urine Negative Normal NEG [facility] Comment on above: Result Comment: (Pos itive cutoff 100 ng/mL) Performed By: #### D AU ####[address] [address] Phencyclidine, Ur Negative Normal NEG [facility] Comment on above: Result Comment: (Pos itive cutoff 25 ng/mL) Performed By: #### D AU ####[address] [address] Urine, methadone presence Negative Normal NEG [facility] Comment on above: Result Comment: (Pos itive cutoff 300 ng/mL) Performed By: #### D AU ####[address] [address] Buprenorphrine, Ur NOT REPORTED Normal NEG [facility] Comment on above: Performed By: #### D AU ####[address] [place] [address] MDMA, Urine NOT REPORTED Normal NEG [facility] Comment on above: Performed By: #### D AU ####[address] [place] [address] Methamphetamine, Ur NOT REPORTED Normal NEG [facility] Comment on above: Performed By: #### D AU ####[address] [address] Propoxyphene,Urine NOT REPORTED Normal NEG [facility] Comment on above: Performed By: #### D AU ####[facility] [place] [address] Urine, tricyclic antidepressants NOT REPORTED Normal NEG [facility] Comment on above: Performed By: #### D AU ####[address] [address] Lipid Profileon 11-05-2017 Cholesterol 137 mg/dL Normal <200 [facility] Comment on above: Result Comment: Chol esterol Guidelines: <200 Desirable 200-240 Borderline >240 Undesirable Performed By: #### L IPR ####[address] [address] Cholesterol to HDL Ratio 4.3 {ratio} Normal <5 [facility] Comment on above: Performed By: #### L IPR ####[facility] [place] [address] HDL Cholesterol 32 mg/dL Low >40 [facility] Comment on above: Result Comment: HDL Guidelines: <40 Undesirable 40-59 Borderline >59 Desirable Performed By: #### L IPR ####[address] [address] LDL Cholesterol 82 mg/dL Normal 0-130 [facility] Comment on above: Result Comment: LDL Guidelines: <100 Desirable 100-129 Near to/above Desirable 130-159 Borderline >159 UndesirableDirect (measured) LDL and calculated LDL are not interchangeable tests. Performed By: #### L IPR ####[address] [address] Triglyceride 113 mg/dL Normal <150 [facility] Comment on above: Result Comment: Trig lyceride Guidelines: <150 Desirable 150- 199 Borderline 200-499 High >499 Very high Based on AHA Guidelines for fasting triglyceride, June 2012.Performed at [facility] [address] [place] [address] Performed By: #### L IPR ####[facility] [place] [address] Cholesterol in VLDL mass conc NOT REPORTED Normal 10-16 [facility] Comment on above: Performed By: #### L IPR ####[facility] [place] [address] Encounters Encounter Date Encounter Type Care Provider Facility Start: 09-05-2023 End: 09-05-2023 ambulatory LUIS FELIPE HALL Not Available Start: 08-21-2023 End: 08-21-2023 ambulatory YOUSIF APARICIO Not Available Start: 08-01-2023 End: 08-01-2023 ambulatory LUIS FELIPE HALL Not Available Start: 12-21-2022 End: 12-21-2022 ambulatory IVAN CAMEJO . Facility:[facility] Start: 11-29-2022 End: 11-29-[address] RODO MENCHACA Facility:[facility] Start: 10-25-2022 [facility] Facility:[facility] Start: 10-11-2022 End: 10-11-[address] CHRISTINE SÁNCHEZ Facility:[facility] Start: 09-12-2022 End: 09-13-[address] YOUSIF APARICIO . Facility:[facility] Start: 08-19-2022 Encounter for preprocedural laboratory examination DR YOUSIF APARICIO . [facility] Start: 08-18-2022 End: 08-18-[address] YOUSIF APARICIO . Facility:[facility] Start: 08-16-2022 End: 08-17-[address] YOUSIF APARICIO . Facility:[facility] Start: 08-16-2022 End: 08-17-2022 Encounter for preprocedural laboratory examination DR YOUSIF APARICIO . Facility:[facility] Start: 08-14-2022 End: 08-15-2022 [facility] Facility:[facility] Start: 07-27-2022 End: 07-28-[address] YOUSIF APARICIO . Facility:[facility] Start: 07-09-2022 End: 07-09-[address] ELISEO HARDING Facility: Start: 12-12-2021 Telephone encounter King zee MD Work Phone: Hematology/Oncology Comment on above: Lab Orders Start: 10-28-2021 Chart abstracting King fleming MD Work Phone: Hematology/Oncology Start: 04-26-2020 End: 04-27-2020 Patient encounter procedure ANTHONY PABON [facility] Start: 04-26-2020 End: 04-26-2020 Subsequent hospital visit by physician Rochelle ALFRED Laboratory Start: 03-16-2020 End: 03-17-2020 Emergency department patient visit Lima Richards [facility] Facility:[facility] Start: 11-20-2019 End: 11-21-2019 Patient encounter procedure [facility] Start: 11-20-2019 End: 11-20-2019 Subsequent hospital visit by physician Rochelle ALFRED Laboratory Comment on above: History of miscarria ge, currently ; Amenorrhea; Positive urine test; Encounter for supervision of normal in first trimester, unspecified ; Spotting in early Start: 06-19-2019 End: 06-20-2019 Patient encounter procedure [facility] Start: 06-19-2019 End: 06-19-2019 Subsequent hospital visit by physician Rochelle ALFRED Laboratory Comment on above: Amenorrhea; Positive urine test; Encounter for supervision of normal in first trimester, unspecified ; Spotting in early Start: 05-09-2019 End: 05-10-2019 Patient encounter procedure KADI DIXON [facility] Start: 05-09-2019 End: 05-09-2019 Subsequent hospital visit by physician Rochelle ALFRED Laboratory Start: 11-05-2017 End: 11-07-2017 Evaluation and management of inpatient ANGELO SPICER [facility] Procedures Date Procedure Procedure Detail Performing Clinician Start: 04-26-2020 Acute hepatitis panel D AWN DESTINY Start: 04-26-2020 Antibody hiv-1&hiv-2 single result KADI DESTINY Start: 04-26-2020 Blood count complete automated KADI DESTINY Start: 04-26-2020 Comprehensive metabo lic panel KADI DESTINY Start: 04-26-2020 Gonadotropin chorion ic qualitative KADI DESTINY Start: 04-26-2020 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 KADI DESTINY Start: 04-26-2020 Acute hepatitis panel [...] SPICER Start: 11-05-2017 Lipid panel ANGELO BARRIOS [employer] Start: 11-05-2017 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 Start: 11-05-2017 FULL CODE ANGELO [employer] PROCESSOR Start: 11-05-2017 IP CONSULT TO HISTOR Y [...] deficiency anemia type Expected: 12/12/2021, Expires: 02/11/2022 [facility] Work Phone: Comment on above: Expected: 12/12/2021 , Expires: 02/11/2022 Start: 05-18-2021 Influenza vaccination INFLUENZA (#1) [facility] Start: 06-26-2020 Cervical cancer screen [facility] [place] Comment on above: Postponed from 01/11 (Not Indicated) Start: 06-26-2020 Screening for malign ant neoplasm of cervix Cervical cancer screen [place] Comment on above: Postponed from 01/11 (Not Indicated) Start: 05-18-2020 Influenza vaccination Flu vaccine (# 1) [place] Start: 11-21-2019 End: 11-21-2019 Ancillary Procedure 11/21/2019 Ancillary Procedure Obstetrics and Gynecology [facility] Start: 06-26-2019 End: 06-26-2019 Routine 06/26/2019 Routine Obstetrics and Gynecology Georgette Leung APRN - BRIAN [address] [place] [address] [phone] [facility]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 Start: 05-18-2019 Influenza vaccination Flu vaccine (# 1) [place], [place] Start: 2015 Cervical cancer screen Cervical canc er screen [place], [place] Start: 2015 PAP TESTING PAP TESTING [facility] Start: 2013 DTaP/Tdap/Td vaccine (1 - Tdap) DTaP/Tdap/Td vaccine (1 - Tdap) [place], [place] Start: 2013 Urine microalbumin profile DTAP,TDAP,TD (1 - Tdap) [facility] Start: 01-12-2012 HEPATITIS C SCREENING HEPATITIS C SC REENING [facility] Start: 01-12-2012 HIV SCREENING HIV SCREENING [facility] Start: 2009 HPV vaccine (1 - Fem larissa 3-dose series) HPV vaccine (1 - Female 3-dose series) [place], [place] Start: 2007 Varicella Vaccine (1 of 2 - 13+ 2-dose series) Varicella Vaccine (1 of 2 - 13+ 2-dose series) [place] Start: 2006 Adult depression screening assessment DEPRESSION SCREENING [facility] Start: 2005 DTaP/Tdap/Td vaccine (1 - Tdap) DTaP/Tdap/Td vaccine (1 - Tdap) [place] Start: 2005 HPV vaccine (1 - 2-d ose series) HPV vaccine (1 - 2-dose series) [place] Start: 2005 HPV vaccine (1 - Fem larissa 2-dose series) HPV vaccine (1 - Female 2-dose series) [place] Start: 01-12-2000 Pneumococcal 0-64 ye ars Vaccine (1 of 1 - PPSV23) Pneumococcal 0-64 years Vaccine (1 of 1 - PPSV23) [place], [place] Start: 1999 COVID-19 VACCINE (1) COVID-19 VACCIN E (1) [facility] Start: 1995 Varicella vaccine (1 of 2 - 2-dose childhood series) Varicella vaccine (1 of 2 - 2-dose childhood series) [place] End: 11-20-2019 Bacteria identified Cx Nom (U) Urine Culture Microbiology Routine Amenorrhea Positive urine test Encounter for supervision of normal in first trimester, unspecified 1 Occurrences starting 11/20/2019 until 11/20/2019 [place] Comment on above: 1 Occurrences starti ng 11/20/2019 until 11/20/2019 Bacteria identified Cx Nom (U) [place] End: 06-19-2019 Bacteria identified Cx Nom (U) Urine Culture Microbiology Routine Amenorrhea Positive urine test Encounter for supervision of normal in first trimester, unspecified 1 Occurrences starting 06/19/2019 until 06/19/2019 [place] Comment on above: 1 Occurrences starti ng 06/19/2019 until 06/19/2019 End: 11-20-2019 C.trachomatis N.gonorrhoeae DNA, Urine C.trachomatis N.gonorrhoeae DNA, Urine Microbiology Routine Amenorrhea Positive urine test Encounter for supervision of normal in first trimester, unspecified 1 Occurrences starting 11/20/2019 until 11/20/2019 [place] Comment on above: 1 Occurrences starti ng 11/20/2019 until 11/20/2019 C.trachomatis N.gonorrhoeae DNA, Urine [place] End: 06-19-2019 C.trachomatis N.gonorrhoeae DNA, Urine C.trachomatis N.gonorrhoeae DNA, Urine Microbiology Routine Amenorrhea Positive urine test Encounter for supervision of normal in first trimester, unspecified 1 Occurrences starting 06/19/2019 until 06/19/2019 [place] Comment on above: 1 Occurrences starti ng 06/19/2019 until 06/19/2019 End: 04-26-2020 Hepatitis C RNA, quantitative, PCR Hepatitis C RNA, quantitative, PCR Lab Routine Once for 1 Occurrences starting 04/26/2020 until 04/26/2020 [place] Comment on above: Once for 1 Occurrenc es starting 04/26/2020 until 04/26/2020 Hepatitis C RNA, quantitative, PCR Hepatitis C RNA, quantitative, PCR Lab Routine 04/26/2020 7:30 AM EDT [place] End: 05-09-2019 HIV Screen HIV Screen Lab Routine Once for 1 Occurrences starting 05/09/2019 until 05/09/2019 [place] Comment on above: Once for 1 Occurrenc es starting 05/09/2019 until 05/09/2019 HIV Screen HIV Screen Lab R outine 05/09[facility]2019 2[facility] Routine Amenorrhea Positive urine test Encounter for supervision of normal in first trimester, unspecified 11/20/2019 12:26 PM EST [facility] Payers Date Payer Category Payer Medicaid [place] [employer] [place] [employer] [id number] 2020-Present [phone] [address] [place], [place] [id number] Medicaid [id number] 2020 Unknown 2016 Unknown [facility] xxxxxxxxxxxx 2016-Present [phone] [address] [place] [address] xxxxxxxxxxxx [id number] .[id number] 1994 Unknown [id number] 2.840.1.494154.3.579.2.196 1994 Unknown [id number] 2.16.840.1.671672.3.579.2.173 1994 Unknown [id number] 2.16.840.1.371391.3.579.2.173 1994 Unknown [id number] 2.16.840.1.531607.3.579.2.173 1994 Unknown [id number] 2.16.840.1.937884.3.579.2.173 1994 Unknown [id number] 2.16.840.1.288060.3.579.2.593 1994 Unknown [id number] 2.16840.1.379953.3.579.2.593 1994 Unknown [id number] 2.16.840.1.496265.3.579.2.593 1994 Unknown [id number] 2.16.840.1.685940.3.579.2.593 1994 Unknown [id number] 2.16.840.1.160350.3.579.2.593 1994 Unknown [id number] 2.16.840.1.974001.3.579.2.593 1994 Unknown [id number] 2.16.840.1.146857.3.579.2.593 1994 Unknown [id number] 2.16.840.1.544052.3.579.2.593 1994 Unknown [id number] 2.16.840.1.575455.3.579.2.593 1994 Unknown [id number] 2.16.840.1.475842.3.579.2.593 1994 Unknown [id number] 2.16.840.1.620116.3.579.2.125 9 1994 Unknown [id number] 2.16.840.1.171135.3.579.2.125 9 1994 Unknown [id number] 2.16.840.1.006124.3.579.2.125 9 1959 Unknown [id number] Social History Date Type Detail Facility Start: 11-05-2017 End: 10-28-2021 Tobacco smoking status NHIS Never smoker [facility] Start: 11-05-2017 End: 06-19-2019 Alcohol intake No [place], [place] Start: 1994 Sex Assigned At Not on file [place] Start: 06-19-2019 End: 11-20-2019 Tobacco smoking status NHIS Current every day smoker [place] Start: 06-19-2019 End: 11-20-2019 Cigarettes smoked current (pack per day) - Reported [facility] Start: 11-20-2019 Alcohol intake Current non-dr assessment consultant of alcohol (finding) [facility] Start: 05-01-2019 [facility] Start: 11-20-2019 End: 10-28-2021 Tobacco use and exposure Never used [facility] Start: 10-28-2021 End: 11-08-2021 Alcohol intake Ex-drinker (finding) [facility] Clinical Note 08-18-2022 Note Date & Type Note Facility 08-18-2022 Note OPERATIVE NOTE OPERATION DATE: 08/18/2022 PROCEDURE: Suction D AND C. PREOPERATIVE DIAGNOSIS: Missed . POSTOPERATIVE DIAGNOSIS: Missed . ANESTHESIA: General. SURGEON: Yousif Aparicio D.O. RAILWAY YARD ASSISTANT: None. BLOOD LOSS: 75 mL. URINE OUTPUT: [...] products of conception were removed using a 10-Namibian suction curette. Excellent hemostasis was noted. The patient tolerated the procedure well. Sponge, lap, and needle counts were correct x 2. All instruments were then removed from the patient's vagina. The patient was taken to the Recovery Room in stable condition. ?? [facility] Note 12-12-2021 Telephone Encounter - Angelia Almazan - 12/12/2021 11:16 AM EDT Note Date & Type Note Facility 12-12-2021 Miscellaneous Notes Pleases sign pending new cbc order. Thanks, Angelia Almazan MA documented in this encounter [facility] Progress note 11-08-2021 Note Date & Type Note Facility 11-08-2021 Note HNO ID: [id number] Author: King Suazo MD Service: ? Author [...] shortness of breath, and is seen at [facility] emergency room. Labs revealed a hemoglobin of [...] biceps/brachioradial/patella/achilles. MUSCULOSKELETAL: Neg (more content not included)... [facility] Evaluation note Note Date & Type Note Facility Evaluation note Diagnosis Iron deficiency anemia, unspecified iron deficiency anemia type- Primary documented in this encounter [facility] Summary Purpose Family History No Family History Records FoundNo Family History Records FoundNo Family History Records FoundNo Family History Records FoundNo Family History Records FoundNo Family History Records Found Advance Directives No Advanced Directives Records FoundDocuments on File Type Date Recorded Patient Application Integration Specialist Expl anation Advance Directives and Living Will Power of Cashier Associate Latest Code Status on File Code Status [...] section and content) DATE CREATED AUTHOR 03/08/2018 [facility] DATE CREATED AUTHOR AUTHOR'S ORGANIZ ATION 04/08/2020 [facility] DATE CREATED AUTHOR AUTHOR'S ORGANIZ ATION 04/28/2020 [facility] DATE CREATED AUTHOR AUTHOR'S ORGANIZ ATION 12/13/2021 [facility] DATE CREATED AUTHOR AUTHOR'S ORGANIZ ATION 12/25/2022 [facility] DATE CREATED AUTHOR AUTHOR'S ORGANIZ ATION 09/07/2023 [facility] [employer] EPIC Source Comments (unrecognize d section and content) In the event this informatio n is protected by the Federal Confidentiality of Alcohol and Drug Abuse Patient Records regulations: The Federal rules restrict any use of the information to criminally investigate or prosecute any alcohol or drug abuse patient.[facility] the event this information is protected by the Federal Confidentiality of Alcohol and Drug Abuse Patient Records regulations: The Federal rules restrict any use of the information to criminally investigate or prosecute any alcohol or drug abuse patient.[facility] Reason for Visit (unrecogniz ed section and content) Reason Comments Lab Orders Care Teams (unrecognized sec tion and content) 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 [facility]. provides no warranty or guarantee of the accuracy or completeness of information in this document.
--- OUTSIDE RECORDS SUMMARY | 2023-10-09 07:24 | XMS_ITS | CCD ---
Author Name Unknown Address [address] [place] [address] Organization [facility] Care Team Providers Care Video Production Assistant Name Role Phone ANGELO SPICER Unavailable Unavailable [...] Care Provider UnavailRodo Carson Primary Care Provider [phone] [facility], [facility] Primary Care Unavaila ble ROBBY ., DR MENENDEZ Attending Unavailable ROBBY ., DR MENENDEZ Admitting Unavailable MEAGHAN, DR ELISEO Malone Consulting Unavailluis e MEAGHAN, DR ELISEO Malone Attending Unavailluis HARDING, DR ELISEO Malone Admitting UnavailKADI Darnell [...] Unavailable NADERER, DR RODO Dickerson Admitting Unavailable [facility] Primary Care Unavaila ble GRECHNY ., ADELITA ORELLANA Consulting Unavailluis CAMARILLO, MYLES Alex Consulting Unavailable GAYE, GURU Consulting Unavailable ALFREDDOYOSEPH, ALIX Consulting Unavailable LINA, KAMILLA Consulting Unavailable SISTER, DANIELA Consulting Unavailable ROBBY ., DR MENENDEZ Consulting Unavailable [facility] Primary Care Unavaila ble ROBBY ., DR MENENDEZ Attending Unavailable ROBBY ., DR MENENDEZ Admitting Unavailable ELENITA, NGOC Consulting Unavailable GEMBUS, AUGUSTUS Consulting Unavailable [facility] Primary Care Unavaila ble ROBBY ., DR MENENDEZ Consulting Unavailable ROBBY ., DR MENENDEZ Attending Unavailable ROBBY ., DR MENENDEZ Admitting Unavailable ZIEBER, DR CHRISTINE Benites Consulting Unavailable ROBBY ., DR MENENDEZ Consulting Unavailable [facility] Primary Care Unavaila ble ROBBY ., [...] Propensity to adverse reactions to drug (disorder) [facility] Repository Medications Current Medications Medication Drug Class(es) [...] 11-05-2017 Other aftercare (1 source) 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 Hemanth Kerr CBC AUTO DIFFon 11-29-2022 BASO # 0.0 103/ul Normal 0.0-0.1 [facility] Comment on above: Performed By: #### C BC #### [facility] [address] [address] [address] Hemanth Kerr Basophils/100 WBC (Bld) 0.7 % Normal 0.2-2.0 [facility] Comment on above: Performed By: #### C BC #### [facility] [address] [address] [address] Hemanth Kerr EO # 0.2 103/ul Normal 0.0-0.7 [facility] Comment on above: Performed By: #### C BC #### [facility] [address] [address] [address] Hemanth Kerr Eosinophils/100 WBC (Bld) 3.3 % Normal 0.9-7.0 [facility] Comment on above: Performed By: #### C BC #### [facility] [address] [place] [address] Dr. Hemanth Kerr Erythrocyte distribution width (RBC) [Ratio] 14.3 % Normal 11.0-15.0 [facility] Comment on above: Performed By: #### C BC #### [facility] [address] [place] [address] Dr. Hemanth Kerr Hematocrit (Bld) [Volume fraction] 37.2 % Normal 36.0-48.0 [facility] Comment on above: Performed By: #### C BC #### [facility] [address] [place] [address] Dr. Hemanth Kerr Hemoglobin (Bld) [Mass/Vol] 11.9 g/dL Critically low 12.0-16.0 [facility] Comment on above: Performed By: #### C BC #### [facility] [address] [place] [address] Dr. Hemanth Kerr IG # 0.01 10e3/ul Normal 0.00-0.03 [facility] Comment on above: Performed By: #### C BC #### [facility] [address] [address] [address] Hemanth Kerr IG % 0.2 % Normal 0.0-0.5 [facility] Comment on above: Performed By: #### C BC #### [facility] [address] [place] [address] Dr. Hemanth Kerr LYMPH # 1.7 103/ul Normal 1.2-3.8 [facility] Comment on above: Performed By: #### C BC #### [facility] [address] [place] [address] Dr. Hemanth Kerr Lymphocytes/100 WBC (Bld) 31.3 % Normal 20.5-60.0 [facility] Comment on above: Performed By: #### C BC #### [facility] [address] [place] [address] Dr. Hemanth Kerr MANUAL DIFF REQ NO Normal [facility] Comment on above: Performed By: #### C BC #### [facility] [address] [place] [address] Dr. Hemanth Kerr MCH (RBC) [Entitic mass] 27.8 pg Normal 26.7-34.0 [facility] Comment on above: Performed By: #### C BC #### [facility] [address] [place] [address] Dr. Hemanth Kerr MCHC (RBC) [Mass/Vol] 32.0 g/dL Normal 29.9-35.2 [facility] Comment on above: Performed By: #### C BC #### [facility] [address] [place] [address] Dr. Hemanth Kerr MCV (RBC) [Entitic vol] 86.9 fL Normal 81.0-99.0 [facility] Comment on above: Performed By: #### C BC #### [facility] [address] [place] [address] Dr. Hemanth Kerr MONO # 0.4 103/ul Normal 0.3-0.8 [facility] Comment on above: Performed By: #### C BC #### [facility] [address] [place] [address] Dr. Hemanth Kerr Monocytes/100 WBC (Bld) 8.0 % Normal 1.7-12.0 [facility] Comment on above: Performed By: #### C BC #### [facility] [address] [place] [address] Dr. Hemanth Kerr NEUT # 3.1 103/ul Normal 1.4-6.5 [facility] Comment on above: Performed By: #### C BC #### [facility] [address] [place] [address] Dr. Hemanth Kerr Neutrophils/100 WBC (Bld) 56.5 % Normal 43.0-75.0 [facility] Comment on above: Performed By: #### C BC #### [facility] [address] [place] [address] Dr. Hemanth Kerr Platelet mean volume (Bld) [Entitic vol] 10.3 fL Normal 9.5-13.5 [facility] Comment on above: Performed By: #### C BC #### [facility] [address] [place] [address] Dr. Hemanth Kerr PLT 258 103/ul Normal 150-450 [facility] Comment on above: Performed By: #### C BC #### [facility] [address] [place] [address] Dr. Hemanth Kerr RBC 4.28 106/ul Normal 4.20-5.40 [facility] Comment on above: Performed By: #### C BC #### [facility] [address] [place] [address] Dr. Hemanth Kerr WBC 5.4 103/ul Normal 4.0-11.0 [facility] Comment on above: Performed By: #### C BC #### [facility] [address] [place] [address] Dr. Hemanth Kerr PROF 14(COMP METB)on 023 Albumin [Mass/Vol] 3.1 g/dL Critically low 3.4-5.0 [facility] Comment on above: Performed By: #### C MP #### [facility] [address] [place] [address] Dr. Hemanth Kerr Albumin/Globulin [Mass ratio] 1.3 {ratio} Normal [facility] Comment on above: Performed By: #### C MP #### [facility] [address] [address] [address] Hemanth Kerr ALP [Catalytic activity/Vol] 56 U/L Normal 46-116 [facility] Comment on above: Performed By: #### C MP #### [facility] [address] [address] [address] Hemanth Kerr ALT [Catalytic activity/Vol] 34 U/L Normal 14-59 [facility] Comment on above: Performed By: #### C MP #### [facility] [address] [place] [address] Dr. Hemanth Kerr Anion gap [Moles/Vol] 7.0 mmol/L Normal [facility] Comment on above: Performed By: #### C MP #### [facility] [address] [place] [address] Dr. Hemanth Kerr AST [Catalytic activity/Vol] 29 U/L Normal 15-37 [facility] Comment on above: Performed By: #### C MP #### [facility] [address] [place] [address] Dr. Hemanth Kerr Bilirubin [Mass/Vol] 0.4 mg/dL Normal 0.2-1.0 [facility] Comment on above: Performed By: #### C MP #### [facility] [address] [place] [address] Dr. Hemanth Kerr Calcium [Mass/Vol] 8.3 mg/dL Critically low 8.5-10.1 [facility] Comment on above: Performed By: #### C MP #### [facility] [address] [place] [address] Dr. Hemanth Kerr Chloride [Moles/Vol] 110 mmol/L Critically high 98-107 [facility] Comment on above: Performed By: #### C MP #### [facility] [address] [place] [address] Dr. Hemanth Kerr CO2 [Moles/Vol] 27.6 mmol/L Normal 21.0-32.0 [facility] Comment on above: Performed By: #### C MP #### [facility] [address] [place] [address] Dr. Hemanth Kerr Creatinine [Mass/Vol] 0.61 mg/dL Normal 0.55-1.02 [facility] Comment on above: Performed By: #### C MP #### [facility] [address] [address] [address] Hemanth Kerr EGFR-AF MARSHALLESE >60 Normal >=60 [facility] Comment on above: Performed By: #### C MP #### [facility] [address] [address] [address] Hemanth Kerr EGFR-NON AF MARSHALLESE >60 Normal >=60 [facility] Comment on above: Performed By: #### C MP #### [facility] [address] [address] [address] Hemanth Kerr Globulin (S) [Mass/Vol] 2.4 g/dL Normal [facility] Comment on above: Performed By: #### C MP #### [facility] [address] [place] [address] Dr. Hemanth Kerr Glucose [Mass/Vol] 110 mg/dL Critically high 74-106 [facility] Comment on above: Performed By: #### C MP #### [facility] [address] [address] [address] Hemanth Kerr Potassium [Moles/Vol] 2.6 mmol/L Critically low 3.5-5.1 [facility] Comment on above: Performed By: #### C MP #### [facility] [address] [place] [address] Dr. Hemanth Kerr Protein [Mass/Vol] 5.5 g/dL Critically low 6.4-8.2 [facility] Comment on above: Performed By: #### C MP #### [facility] [address] [address] [address] Hemanth Kerr Sodium [Moles/Vol] 142 mmol/L Normal 136-145 [facility] Comment on above: Performed By: #### C MP #### [facility] [address] [place] [address] Dr. Hemanth Kerr Urea nitrogen [Mass/Vol] 12.0 mg/dL Normal 7.0-18.0 [facility] Comment on above: Performed By: #### C MP #### [facility] [address] [address] [address] Hemanth Kerr Urea nitrogen/Creatinine [Mass ratio] 19.7 mg/mg Normal [facility] Comment on above: Performed By: #### C MP #### [facility] [address] [address] [address] Hemanth Kerr XR HIP LT 2 [...] ALIX GRANADOS Date: 2022-11-28 22:13 Normal [facility] ACETAMINOPHENon 11-28-2022 Acetaminophen [Mass/Vol] ug/mL Critically low 10.0-30.0 [facility] Comment on above: Performed By: #### C MP #### [facility] [address] [address] [address] Hemanth Kerr ACETONE SERUMon 11-28-2022 ACETONE Negative Normal NEGATIVE [facility] Comment on above: Performed By: #### P REG #### [facility] [address] [address] [address] Hemanth Kerr AMMONIAon 11-28-2022 Ammonia (P) [Moles/Vol] 24 umol/L Normal 11-32 [facility] Comment on above: Performed By: #### L ACT #### [facility] [address] [address] [address] Hemanth Kerr CBC AUTO DIFFon 11-28-2022 BASO # 0.0 103/ul Normal 0.0-0.1 [facility] Comment on above: Performed By: #### L ACT #### [facility] [address] [address] [address] Hemanth Kerr Basophils/100 WBC (Bld) 0.4 % Normal 0.2-2.0 [facility] Comment on above: Performed By: #### L ACT #### [facility] [address] [place] [address] Dr. Hemanth Kerr EO # 0.3 103/ul Normal 0.0-0.7 [facility] Comment on above: Performed By: #### L ACT #### [facility] [address] [place] [address] Dr. Hemanth Kerr Eosinophils/100 WBC (Bld) 3.1 % Normal 0.9-7.0 [facility] Comment on above: Performed By: #### L ACT #### [facility] [address] [place] [address] Dr. Hemanth Kerr Erythrocyte distribution width (RBC) [Ratio] 14.3 % Normal 11.0-15.0 [facility] Comment on above: Performed By: #### L ACT #### [facility] [address] [place] [address] Dr. Hemanth Kerr Hematocrit (Bld) [Volume fraction] 41.3 % Normal 36.0-48.0 [facility] Comment on above: Performed By: #### L ACT #### [facility] [address] [place] [address] Dr. Hemanth Kerr Hemoglobin (Bld) [Mass/Vol] 13.3 g/dL Normal 12.0-16.0 [facility] Comment on above: Performed By: #### L ACT #### [facility] [address] [place] [address] Dr. Hemanth Kerr IG # 0.02 10e3/ul Normal 0.00-0.03 [facility] Comment on above: Performed By: #### L ACT #### [facility] [address] [place] [address] Dr. Hemanth Kerr IG % 0.2 % Normal 0.0-0.5 [facility] Comment on above: Performed By: #### L ACT #### [facility] [address] [place] [address] Dr. Hemanth Kerr LYMPH # 2.4 103/ul Normal 1.2-3.8 [facility] Comment on above: Performed By: #### L ACT #### [facility] [address] [place] [address] Dr. Hemanth Kerr Lymphocytes/100 WBC (Bld) 26.3 % Normal 20.5-60.0 [facility] Comment on above: Performed By: #### L ACT #### [facility] [address] [place] [address] Dr. Hemanth Kerr MANUAL DIFF REQ NO Normal [facility] Comment on above: Performed By: #### L ACT #### [facility] [address] [place] [address] Dr. Hemanth Kerr MCH (RBC) [Entitic mass] 27.4 pg Normal 26.7-34.0 [facility] Comment on above: Performed By: #### L ACT #### [facility] [address] [place] [address] Dr. Hemanth Kerr MCHC (RBC) [Mass/Vol] 32.2 g/dL Normal 29.9-35.2 [facility] Comment on above: Performed By: #### L ACT #### [facility] [address] [place] [address] Dr. Hemanth Kerr MCV (RBC) [Entitic vol] 85.0 fL Normal 81.0-99.0 [facility] Comment on above: Performed By: #### L ACT #### [facility] [address] [place] [address] Dr. Hemanth Kerr MONO # 0.7 103/ul Normal 0.3-0.8 [facility] Comment on above: Performed By: #### L ACT #### [facility] [address] [place] [address] Dr. Hemanth Kerr Monocytes/100 WBC (Bld) 7.3 % Normal 1.7-12.0 [facility] Comment on above: Performed By: #### L ACT #### [facility] [address] [place] [address] Dr. Hemanth Kerr NEUT # 5.7 103/ul Normal 1.4-6.5 [facility] Comment on above: Performed By: #### L ACT #### [facility] [address] [address] [address] Hemanth Kerr Neutrophils/100 WBC (Bld) 62.7 % Normal 43.0-75.0 [facility] Comment on above: Performed By: #### L ACT #### [facility] [address] [address] [address] Hemanth Kerr Platelet mean volume (Bld) [Entitic vol] 10.6 fL Normal 9.5-13.5 [facility] Comment on above: Performed By: #### L ACT #### [facility] [address] [place] [address] Dr. Hemanth Kerr PLT 347 103/ul Normal 150-450 [facility] Comment on above: Performed By: #### L ACT #### [facility] [address] [place] [address] Dr. Hemanth Kerr RBC 4.86 106/ul Normal 4.20-5.40 [facility] Comment on above: Performed By: #### L ACT #### [facility] [address] [place] [address] Dr. Hemanth Kerr WBC 9.1 103/ul Normal 4.0-11.0 [facility] Comment on above: Performed By: #### L ACT #### [facility] [address] [place] [address] CSPINE WO CONon [...] KAMILLA MILLS Date: 2022-11-28 17:54 Normal [facility] CT HEAD WO CONon 11-28-2022 CT HEAD [...] KAMILLA MILLS Date: 2022-11-28 18:40 Normal [facility] CULTURE BLOODon 11-28-2022 Microscopic examination of blood, culture Culture Observations: NO GROWTH AT 5 DAYS. Normal [facility] Comment on above: Performed By: #### C BC #### [facility] [address] [address] [address] Hemanth Kerr Microscopic examination of blood, culture Culture Observations: NO GROWTH AT 5 DAYS. Normal [facility] Comment on above: Performed By: #### B [id number] #### [facility] [address] [place] [address] Dr. Hemanth Kerr Covid-19 PCR ([facility])on 11-15 SARS-CoV-2 (COVID-19) RNA ELMO+probe Ql (Unsp spec) Not detected Normal NOT DETECTED [facility] Comment on above: Result Comment: When diagnostic [...] for this test is supported by the [place] of Health and Human Service's declaration that [...] used). Performed By: #### L ACT #### [facility] [address] [place] [address] Dr. Hemanth Kerr DRUG SCREEN RAPID (URINE)on 11-28-2022 AMP Positive Abnormal NEGATIVE [facility] Comment on above: Performed By: #### P REG #### [facility] [address] [place] [address] Dr. Hemanth Kerr BAR Negative Normal NEGATIVE [facility] Comment on above: Performed By: #### P REG #### [facility] [address] [place] [address] Dr. Hemanth Kerr BUP Negative Normal NEGATIVE [facility] Comment on above: Performed By: #### P REG #### [facility] [address] [place] [address] Dr. Hemanth Kerr BZO Negative Normal NEGATIVE [facility] Comment on above: Performed By: #### P REG #### [facility] [address] [place] [address] Dr. Hemanth Kerr YOLANDA Negative Normal NEGATIVE [facility] Comment on above: Performed By: #### P REG #### [facility] [address] [place] [address] Dr. Hemanth Kerr CUT-OFFS SEE BELOW Normal [facility] Comment on above: Result Comment: AMP (Amphetamine): 500ng/mL, BAR (Barbituates): 200 ng/mL, BZO (Benzodiazepines): 150 ng/mL, BUP (Buprenorphine): 10 ng/mL, YOLANDA (Cocaine): 150 ng/mL, mAMP (Methamphetamine): 500 ng/mL, MTD (Methadone): 200 ng/mL, OPI (Opiates): 100 ng/mL, OXY (Oxycodone): 100 ng/mL, PCP (Phencyclidine): 25 ng/mL, PPX (Propoxyphene): 300 ng/mL, THC (Cannabinoids): 50 ng/mL, TCA (Trycyclic Antidepressants): 300 ng/mL Performed By: #### P REG #### [facility] [address] [place] [address] Dr. Hemanth Kerr DRUG CUT HEADER DRUG CLASS TEST SYSTEM CUT-OFF CONCENTRATIONS ARE FOLLOWS: Normal [facility] Comment on above: Performed By: #### P REG #### [facility] [address] [place] [address] Dr. Hemanth Kerr mAMP Positive Abnormal NEGATIVE [facility] Comment on above: Performed By: #### P REG #### [facility] [address] [place] [address] Dr. Hemanth Kerr MTD Negative Normal NEGATIVE [facility] Comment on above: Performed By: #### P REG #### [facility] [address] [place] [address] Dr. Hemanth Kerr OPI Negative Normal NEGATIVE [facility] Comment on above: Performed By: #### P REG #### [facility] [address] [place] [address] Dr. Hemanth Kerr OXY Negative Normal NEGATIVE [facility] Comment on above: Performed By: #### P REG #### [facility] [address] [place] [address] Dr. Hemanth Kerr PCP Negative Normal NEGATIVE [facility] Comment on above: Performed By: #### P REG #### [facility] [address] [place] [address] Dr. Hemanth Kerr PPX Negative Normal NEGATIVE [facility] Comment on above: Performed By: #### P REG #### [facility] [address] [address] [address] Hemanth Kerr TCA Negative Normal NEGATIVE [facility] Comment on above: Performed By: #### P REG #### [facility] [address] [place] [address] Dr. Hemanth Kerr THC Negative Normal NEGATIVE [facility] Comment on above: Performed By: #### P REG #### [facility] [address] [place] [address] Dr. Hemanth Kerr ER URINE PROFILEon 3 Bilirubin Ql (U) Negative Normal NEGATIVE [facility] Comment on above: Performed By: #### P REG #### [facility] [address] [place] [address] Dr. Hemanth Kerr Clarity (U) CLEAR Normal CLEAR [facility] Comment on above: Performed By: #### P REG #### [facility] [address] [place] [address] Dr. Hemanth Kerr Color (U) LT. YELLOW Normal YELLOW [facility] Comment on above: Performed By: #### P REG #### [facility] [address] [place] [address] Dr. Hemanth Kerr ERUAbi A micrscopic examination will be performed if indicated. Normal [facility] Comment on above: Performed By: #### P REG #### [facility] [address] [place] [address] Dr. Hemanth Kerr Glucose Ql (U) Negative Normal NEGATIVE [facility] Comment on above: Performed By: #### P REG #### [facility] [address] [place] [address] Dr. Hemanth Kerr Hemoglobin Ql (U) Negative Normal NEGATIVE [facility] Comment on above: Performed By: #### P REG #### [facility] [address] [place] [address] Dr. Hemanth Kerr Ketones Ql (U) Negative Normal NEGATIVE [facility] Comment on above: Performed By: #### P REG #### [facility] [address] [place] [address] Dr. Hemanth Kerr LEUKOCYTES Negative Normal NEGATIVE [facility] Comment on above: Performed By: #### P REG #### [facility] [address] [place] [address] Dr. Hemanth Kerr Nitrite Ql (U) Positive Abnormal NEGATIVE [facility] Comment on above: Performed By: #### P REG #### [facility] [address] [place] [address] Dr. Hemanth Kerr pH (U) 7.5 [pH] Normal 5-9 [facility] Comment on above: Performed By: #### P REG #### [facility] [address] [place] [address] Dr. Hemanth Kerr SPEC GRAVITY 1.020 Normal 1.005-<=1.025 [facility] Comment on above: Performed By: #### P REG #### [facility] [address] [place] [address] Dr. Hemanth Kerr UA PROTEIN TRACE Normal NEGATIVE/ TRACE [facility] Comment on above: Performed By: #### P REG #### [facility] [address] [place] [address] Dr. Hemanth Kerr UR MICRO IND INDICATED Normal [facility] Comment on above: Performed By: #### P REG #### [facility] [address] [place] [address] Dr. Hemanth Kerr Urobilinogen Qn (U) 1.0 {Jose'U}/dL Normal 0.2 - 1. 0 [facility] Comment on above: Performed By: #### P REG #### [facility] [address] [place] [address] Dr. Hemanth Kerr ETHANOL (BLD ALC)on 11-29-19 23 ALC NOTE NOTE: 80 mg/dl is th e legal limit for a blood alcohol level Normal [facility] Comment on above: Performed By: #### C MP #### [facility] [address] [place] [address] Dr. Hemanth Kerr Ethanol [Mass/Vol] mg/dL Normal [facility] Comment on above: Performed By: #### C MP #### [facility] [address] [place] [address] Dr. Hemanth Kerr LACTATE/LACTIC ACIDon 2022 Lactate [Moles/Vol] 0.7 mmol/L Normal 0.4-2.0 [facility] Comment on above: Performed By: #### L ACT #### [facility] [address] [address] [address] Hemanth Kerr Lactate [Moles/Vol] 9.0 mmol/L Critically high 0.4-2.0 [facility] Comment on above: Performed By: #### L ACT #### [facility] [address] [address] [address] Hemanth Kerr PH VENOUS BLOODon 11-28-2022 PCO2 VENOUS 36.6 mmHg Critically low 40.0-52.[address] [facility] Comment on above: Performed By: #### P HVEN #### [facility] [address] [place] [address] Dr. Hemanth Kerr pH VENOUS 7.354 Normal 7.330-7.430 [facility] Comment on above: Performed By: #### P HVEN #### [facility] [address] [place] [address] Dr. Hemanth Kerr POINT OF CARE GLUCOSEon 11-15 Glucose [Mass/Vol] 127 mg/dL Critically high 74-106 [facility] Comment on above: Performed By: #### C BC #### [facility] [address] [place] [address] Dr. Hemanth Kerr PREG HCG QUALon 11-28-2022 , QUAL Negative Normal NEGATIVE [facility] Comment on above: Performed By: #### P REG #### [facility] [address] [place] [address] Dr. Hemanth Kerr PROF 14(COMP METB)on 023 Albumin [Mass/Vol] 3.7 g/dL Normal 3.4-5.0 [facility] Comment on above: Performed By: #### L ACT #### [facility] [address] [place] [address] Dr. Hemanth Kerr Albumin/Globulin [Mass ratio] 1.3 {ratio} Normal [facility] Comment on above: Performed By: #### L ACT #### [facility] [address] [address] [address] Hemanth Kerr ALP [Catalytic activity/Vol] 72 U/L Normal 46-116 [facility] Comment on above: Performed By: #### L ACT #### [facility] [address] [address] [address] Hemanth Kerr ALT [Catalytic activity/Vol] 42 U/L Normal 14-59 [facility] Comment on above: Performed By: #### L ACT #### [facility] [address] [address] [address] Hemanth Kerr Anion gap [Moles/Vol] 16.3 mmol/L Normal [facility] Comment on above: Performed By: #### L ACT #### [facility] [address] [place] [address] Dr. Hemanth Kerr AST [Catalytic activity/Vol] 45 U/L Critically high 15-37 [facility] Comment on above: Performed By: #### L ACT #### [facility] [address] [place] [address] Dr. Hemanth Kerr Bilirubin [Mass/Vol] 0.4 mg/dL Normal 0.2-1.0 [facility] Comment on above: Performed By: #### L ACT #### [facility] [address] [place] [address] Dr. Hemanth Kerr Calcium [Mass/Vol] 8.8 mg/dL Normal 8.5-10.1 [facility] Comment on above: Performed By: #### L ACT #### [facility] [address] [place] [address] Dr. Hemanth Kerr Chloride [Moles/Vol] 107 mmol/L Normal 98-107 [facility] Comment on above: Performed By: #### L ACT #### [facility] [address] [address] [address] Hemanth Kerr CO2 [Moles/Vol] 21.8 mmol/L Normal 21.0-32.0 [facility] Comment on above: Performed By: #### L ACT #### [facility] [address] [address] [address] Hemanth Kerr Creatinine [Mass/Vol] 1.32 mg/dL Critically high 0.55-1.02 [facility] Comment on above: Performed By: #### L ACT #### [facility] [address] [address] [address] Hemanth Kerr EGFR-AF MARSHALLESE 58 mL/min/1.73m2 Critically low >=60 [facility] Comment on above: Performed By: #### L ACT #### [facility] [address] [address] [address] Hemanth Kerr EGFR-NON AF MARSHALLESE 48 mL/min/1.73m2 Critically low >=60 [facility] Comment on above: Performed By: #### L ACT #### [facility] [address] [place] [address] Dr. Hemanth Kerr Globulin (S) [Mass/Vol] 2.9 g/dL Normal [facility] Comment on above: Performed By: #### L ACT #### [facility] [address] [address] [address] Hemanth Kerr Glucose [Mass/Vol] 143 mg/dL Critically high 74-106 [facility] Comment on above: Performed By: #### L ACT #### [facility] [address] [address] [address] Hemanth Kerr Potassium [Moles/Vol] 3.1 mmol/L Critically low 3.5-5.1 [facility] Comment on above: Performed By: #### L ACT #### [facility] [address] [address] [address] Hemanth Kerr Protein [Mass/Vol] 6.6 g/dL Normal 6.4-8.2 [facility] Comment on above: Performed By: #### L ACT #### [facility] [address] [address] [address] Hemanth Kerr Sodium [Moles/Vol] 142 mmol/L Normal 136-145 [facility] Comment on above: Performed By: #### L ACT #### [facility] [address] [address] [address] Hemanth Kerr Urea nitrogen [Mass/Vol] 17.0 mg/dL Normal 7.0-18.0 [facility] Comment on above: Performed By: #### L ACT #### [facility] [address] [place] [address] Dr. Hemanth Kerr Urea nitrogen/Creatinine [Mass ratio] 12.9 mg/mg Normal [facility] Comment on above: Performed By: #### L ACT #### [facility] [address] [place] [address] Dr. Hemanth Kerr PROTIMEon 11-28-2022 INR Coag (PPP) [Relative time] 0.97 {INR} Normal [facility] Comment on above: Performed By: #### P T, PTT #### [facility] [address] [place] [address] Dr. Hemanth Kerr INR GUIDELINES SEE BELOW Normal [facility] Comment on above: Result Comment: CHAN RED INR: 2.0 - 3.0 CONDITIONS NOT LISTED BELOW 2.5 - 3.5 FOR PROSTHETIC HEART VALVE REPLACEMENT 2.5 - 3.5 RECURRENT THROMBOSIS Performed By: #### P T, PTT #### [facility] [address] [place] [address] Dr. Hemanth Kerr PT Coag (PPP) [Time] 10.3 s Normal 9.0-11.6 [facility] Comment on above: Performed By: #### P T, PTT #### [facility] [address] [place] [address] Dr. Hemanth Kerr PTTon 11-28-2022 aPTT Coag (Bld) [Time] 25.4 s Normal 22.3-36.2 [facility] Comment on above: Performed By: #### P T, PTT #### [facility] [address] [place] [address] Dr. Hemanth Kerr SALICYLATEon 11-28-2022 SALICYLATE <2.8 Normal <=19.9 [facility] Comment on above: Performed By: #### C MP #### [facility] [address] [place] [address] Dr. Hemanth Kerr TROPONIN, HIGH SENSITIVITYon 11-28-2022 HSTROP 4.2 pg/mL Normal 4.0-51.3 [facility] Comment on above: Result Comment: CUT- OFF POINTS HAVE BEEN ESTABLISHED BASED ON THE FOURTH UNIVERSAL DEFINITIONS OF MYOCARDIAL INFARCTION. THE UPPER REFERENCE LIMIT (URL) OF TROPONIN, DEFINED THE 99TH PERCENTILE OF cTnI DISTRIBUTION IN A REFERENCE POPULATION, HAS BEEN CONFIRMED THE DECISION THRESHOLD FOR PR DIAGNOSIS. Performed By: #### C MP #### [facility] [address] [place] [address] Dr. Hemanth Kerr TSHon 11-28-2022 TSH 3.476 uIU/mL Normal 0.358-3.740 [facility] Comment on above: Performed By: #### L ACT #### [facility] [address] [place] [address] Dr. Hemanth Kerr URINE MICROSCOPIC ONLYon BACTERIA LARGE Abnormal NONE SEEN [facility] Comment on above: Performed By: #### P REG #### [facility] [address] [place] [address] Dr. Hemanth Kerr Bacteria identified Cx Nom (U) INDICATED Normal [facility] Comment on above: Performed By: #### P REG #### [facility] [address] [place] [address] Dr. Hemanth Kerr CAST SEEN Abnormal NONE SEEN [facility] Comment on above: Performed By: #### P REG #### [facility] [address] [place] [address] Dr. Hemanth Kerr COARSE GRANULAR CAST RARE Normal [facility] Comment on above: Performed By: #### P REG #### [facility] [address] [place] [address] Dr. Hemanth Kerr Crystals LM Nom (Urine sed) NONE SEEN Normal NONE SEEN [facility] Comment on above: Performed By: #### P REG #### [facility] [address] [place] [address] Dr. Hemanth Kerr Epithelial cells LM Ql (Urine sed) RARE Normal NONE SEEN /RARE [facility] Comment on above: Performed By: #### P REG #### [facility] [address] [place], [place] [id number] Dr. Hemanth Kerr MUCOUS NONE SEEN Normal NONE SEEN [facility] Comment on above: Performed By: #### P REG #### [facility] [address] [place] [address] Dr. Hemanth Kerr RBC 0-2 Normal 0-2 [facility] Comment on above: Performed By: #### P REG #### [facility] [address] [place] [address] Dr. Hemanth Kerr WBC 2-5 Abnormal NONE SEEN [facility] Comment on above: Performed By: #### P REG #### [facility] [address] [place] [address] Dr. Hemanth Kerr XR CHEST 1 Von [...] KAMILLA MILLS Date: 2022-11-28 17:39 Normal [facility] CULTURE URINEon 10-13-2022 CULTURE URINE Isolate 1 [...] Trimethoprim/Sulfamet hoxazole >=320 R F Normal [facility] Comment on above: Performed By: #### U RCX #### [facility] [address] [address] [address] Hemanth Kerr CBC AUTO DIFFon 10-11-2022 BASO # 0.0 103/ul Normal 0.0-0.1 [facility] Comment on above: Performed By: #### C BC #### [facility] [address] [address] [address] Hemanth Kerr Basophils/100 WBC (Bld) 0.3 % Normal 0.2-2.0 [facility] Comment on above: Performed By: #### C BC #### [facility] [address] [address] [address] Hemanth Kerr EO # 0.0 103/ul Normal 0.0-0.7 [facility] Comment on above: Performed By: #### C BC #### [facility] [address] [place] [address] Dr. Hemanth Kerr Eosinophils/100 WBC (Bld) 0.4 % Critically low 0.9-7.0 [facility] Comment on above: Performed By: #### C BC #### [facility] [address] [place] [address] Dr. Hemanth Kerr Erythrocyte distribution width (RBC) [Ratio] 12.2 % Normal 11.0-15.0 [facility] Comment on above: Performed By: #### C BC #### [facility] [address] [place] [address] Dr. Hemanth Kerr Hematocrit (Bld) [Volume fraction] 38.6 % Normal 36.0-48.0 [facility] Comment on above: Performed By: #### C BC #### [facility] [address] [place] [address] Dr. Hemanth Kerr Hemoglobin (Bld) [Mass/Vol] 12.0 g/dL Normal 12.0-16.0 [facility] Comment on above: Performed By: #### C BC #### [facility] [address] [place] [address] Dr. Hemanth Kerr IG # 0.07 10e3/ul Critically high 0.00-0.03 [facility] Comment on above: Performed By: #### C BC #### [facility] [address] [place] [address] Dr. Hemanth Kerr IG % 0.7 % Critically high 0.0-0.[address] [facility] Comment on above: Performed By: #### C BC #### [facility] [address] [place] [address] Dr. Hemanth Kerr LYMPH # 1.2 103/ul Normal 1.2-3.8 [facility] Comment on above: Performed By: #### C BC #### [facility] [address] [place] [address] Dr. Heamnth Kerr Lymphocytes/100 WBC (Bld) 12.1 % Critically low 20.5-60.0 [facility] Comment on above: Performed By: #### C BC #### [facility] [address] [place] [address] Dr. Hemanth Kerr MANUAL DIFF REQ NO Normal [facility] Comment on above: Performed By: #### C BC #### [facility] [address] [place] [address] Dr. Hemanth Kerr MCH (RBC) [Entitic mass] 28.0 pg Normal 26.7-34.0 [facility] Comment on above: Performed By: #### C BC #### [facility] [address] [place] [address] Dr. Hemanth Kerr MCHC (RBC) [Mass/Vol] 31.1 g/dL Normal 29.9-35.2 [facility] Comment on above: Performed By: #### C BC #### [facility] [address] [place] [address] Dr. Hemanth Kerr MCV (RBC) [Entitic vol] 90.2 fL Normal 81.0-99.0 [facility] Comment on above: Performed By: #### C BC #### [facility] [address] [place] [address] Dr. Hemanth Kerr MONO # 0.7 103/ul Normal 0.3-0.8 [facility] Comment on above: Performed By: #### C BC #### [facility] [address] [address] [address] Hemanth Kerr Monocytes/100 WBC (Bld) 6.9 % Normal 1.7-12.0 [facility] Comment on above: Performed By: #### C BC #### [facility] [address] [address] [address] Hemanth Kerr NEUT # 8.1 103/ul Critically high 1.4-6.5 [facility] Comment on above: Performed By: #### C BC #### [facility] [address] [address] [address] Hemanth Kerr Neutrophils/100 WBC (Bld) 79.6 % Critically high 43.0-75.0 [facility] Comment on above: Performed By: #### C BC #### [facility] [address] [place] [address] Dr. Hemanth Kerr Platelet mean volume (Bld) [Entitic vol] 10.8 fL Normal 9.5-13.5 [facility] Comment on above: Performed By: #### C BC #### [facility] [address] [address] [address] Hemanth Kerr PLT 452 103/ul Critically high 150-450 [facility] Comment on above: Performed By: #### C BC #### [facility] [address] [address] [address] Hemanth Kerr RBC 4.28 106/ul Normal 4.20-5.40 [facility] Comment on above: Performed By: #### C BC #### [facility] [address] [address] [address] Hemanth Kerr WBC 10.1 103/ul Normal 4.0-11.0 [facility] Comment on above: Performed By: #### C BC #### [facility] [address] [place] [address] ABD/PELVIS WO CONon [...] by: CHRISTINE SÁNCHEZ Date: 2022-10-11 14:45 Normal [facility] ER URINE PROFILEon 3 Bilirubin Ql (U) Negative Normal NEGATIVE [facility] Comment on above: Performed By: #### L ACT #### [facility] [address] [place] [address] Dr. Hemanth Kerr Clarity (U) CLEAR Normal CLEAR [facility] Comment on above: Performed By: #### L ACT #### [facility] [address] [address] [address] Hemanth Kerr Color (U) LT. YELLOW Normal YELLOW [facility] Comment on above: Performed By: #### L ACT #### [facility] [address] [place] [address] Dr. Hemanth Kerr ERUAHD A micrscopic examination will be performed if indicated. Normal [facility] Comment on above: Performed By: #### L ACT #### [facility] [address] [address] [address] Hemanth Kerr Glucose Ql (U) Negative Normal NEGATIVE [facility] Comment on above: Performed By: #### L ACT #### [facility] [address] [address] [address] Hemanth Kerr Hemoglobin Ql (U) LARGE Abnormal NEGATIVE [facility] Comment on above: Performed By: #### L ACT #### [facility] [address] [address] [address] Hemanth Kerr Ketones Ql (U) Negative Normal NEGATIVE [facility] Comment on above: Performed By: #### L ACT #### [facility] [address] [place] [address] Dr. Hemanth Kerr LEUKOCYTES SMALL Abnormal NEGATIVE [facility] Comment on above: Performed By: #### L ACT #### [facility] [address] [place] [address] Dr. Hemanth Kerr Nitrite Ql (U) Negative Normal NEGATIVE [facility] Comment on above: Performed By: #### L ACT #### [facility] [address] [address] [address] Hemanht Kerr pH (U) 6.5 [pH] Normal 5-9 [facility] Comment on above: Performed By: #### L ACT #### [facility] [address] [place] [address] Dr. Hemanth Kerr Protein (U) [Mass/Vol] 30 mg/dL Abnormal NEGATIVE/ TRACE [facility] Comment on above: Performed By: #### L ACT #### [facility] [address] [place] [address] Dr. Hemanth Kerr SPEC GRAVITY <=1.005 Abnormal 1.005-<=1.[address] [facility] Comment on above: Performed By: #### L ACT #### [facility] [address] [place] [address] Dr. Hemanth Kerr UR MICRO IND INDICATED Normal [facility] Comment on above: Performed By: #### L ACT #### [facility] [address] [address] [address] Hemanth Kerr Urobilinogen Qn (U) 1.0 {Jose'U}/dL Normal 0.2 - 1. 0 [facility] Comment on above: Performed By: #### L ACT #### [facility] [address] [address] [address] Hemanth Kerr PREG HCG QUALon 10-11-2022 , QUAL Negative Normal NEGATIVE [facility] Comment on above: Performed By: #### P REG #### [facility] [address] [address] [address] Hemanth Kerr PROF CHEM 8 (BAS METB)on Anion gap [Moles/Vol] 9.4 mmol/L Normal [facility] Comment on above: Performed By: #### L ACT #### [facility] [address] [place] [address] Dr. Hemanth Kerr Calcium [Mass/Vol] 8.8 mg/dL Normal 8.5-10.1 [facility] Comment on above: Performed By: #### L ACT #### [facility] [address] [address] [address] Hemanth Kerr Chloride [Moles/Vol] 97 mmol/L Critically low 98-107 [facility] Comment on above: Performed By: #### L ACT #### [facility] [address] [place] [address] Dr. Hemanth Kerr CO2 [Moles/Vol] 32.4 mmol/L Critically high 21.0-32.0 [facility] Comment on above: Performed By: #### L ACT #### [facility] [address] [place] [address] Dr. Hemanth Kerr Creatinine [Mass/Vol] 0.65 mg/dL Normal 0.55-1.02 [facility] Comment on above: Performed By: #### L ACT #### [facility] [address] [place] [address] Dr. Hemanth Kerr EGFR-AF MARSHALLESE >60 Normal >=60 [facility] Comment on above: Performed By: #### L ACT #### [facility] [address] [address] [address] Hemanth Kerr EGFR-NON AF MARSHALLESE >60 Normal >=60 [facility] Comment on above: Performed By: #### L ACT #### [facility] [address] [place] [address] Dr. Hemanth Kerr Glucose [Mass/Vol] 117 mg/dL Critically high 74-106 [facility] Comment on above: Performed By: #### L ACT #### [facility] [address] [address] [address] Hemanth Kerr Potassium [Moles/Vol] 2.8 mmol/L Critically low 3.5-5.1 [facility] Comment on above: Performed By: #### L ACT #### [facility] [address] [place] [address] Dr. Hemanth Kerr Sodium [Moles/Vol] 135 mmol/L Critically low 136-145 [facility] Comment on above: Performed By: #### L ACT #### [facility] [address] [place] [address] Dr. Hemanth Kerr Urea nitrogen [Mass/Vol] 8.0 mg/dL Normal 7.0-18.0 [facility] Comment on above: Performed By: #### L ACT #### [facility] [address] [place] [address] Dr. Hemanth Kerr Urea nitrogen/Creatinine [Mass ratio] 12.3 mg/mg Normal [facility] Comment on above: Performed By: #### L ACT #### [facility] [address] [place] [address] Dr. Hemanth Kerr URINE MICROSCOPIC ONLYon BACTERIA SMALL Abnormal NONE SEEN [facility] Comment on above: Performed By: #### L ACT #### [facility] [address] [place], [place] [id number] Dr. Hemanth Kerr Bacteria identified Cx Nom (U) INDICATED Normal [facility] Comment on above: Performed By: #### L ACT #### [facility] [address] [place] [address] Dr. Hemanth Kerr CAST NONE SEEN Normal NONE SEEN [facility] Comment on above: Performed By: #### L ACT #### [facility] [address] [place] [address] Dr. Hemanth Kerr Crystals LM Nom (Urine sed) NONE SEEN Normal NONE SEEN [facility] Comment on above: Performed By: #### L ACT #### [facility] [address] [place] [address] Dr. Hemanth Kerr Epithelial cells LM Ql (Urine sed) FEW Abnormal NONE SEEN /RARE [facility] Comment on above: Performed By: #### L ACT #### [facility] [address] [place] [address] Dr. Hemanth Kerr MUCOUS NONE SEEN Normal NONE SEEN [facility] Comment on above: Performed By: #### L ACT #### [facility] [address] [place] [address] Dr. Hemanth Kerr RBC 0-2 Normal 0-2 [facility] Comment on above: Performed By: #### L ACT #### [facility] [address] [place] [address] Dr. Hemanth Kerr WBC 10-20 Abnormal NONE SEEN [facility] Comment on above: Performed By: #### L ACT #### [facility] [address] [place] [address] Dr. Hemanth Kerr PREG QUANT HCGon 09-12-2022 HCG QUANT 66 mIU/mL Normal [facility] Comment on above: Performed By: #### C MP #### [facility] [address] [place] [address] Dr. Hemanth Kerr HCG RANGE SEE BELOW Normal [facility] Comment on above: Result Comment: 5-50 0.2-1 WEEK 50-500 1-2 WEEKS 100-5,000 2-3 WEEKS 500-10,000 3-4 WEEKS 1,000-50,000 4-5 WEEKS 10,000-100,000 5-6 WEEKS 15,000-200,000 6-8 WEEKS 10,000-100,000 2-3 MONTHS Performed By: #### C MP #### [facility] [address] [place] [address] Dr. Hemanth Kerr CBC AUTO DIFFon 08-16-2022 BASO # 0.0 103/ul Normal 0.0-0.1 [facility] Comment on above: Performed By: #### L ACT #### [facility] [address] [place] [address] Dr. Hemanth Kerr Basophils/100 WBC (Bld) 0.6 % Normal 0.2-2.0 [facility] Comment on above: Performed By: #### L ACT #### [facility] [address] [address] [address] Hemanth Kerr EO # 0.1 103/ul Normal 0.0-0.7 [facility] Comment on above: Performed By: #### L ACT #### [facility] [address] [place] [address] Dr. Hemanth Kerr Eosinophils/100 WBC (Bld) 1.3 % Normal 0.9-7.0 [facility] Comment on above: Performed By: #### L ACT #### [facility] [address] [place] [address] Dr. Hemanth Kerr Erythrocyte distribution width (RBC) [Ratio] 12.0 % Normal 11.0-15.0 [facility] Comment on above: Performed By: #### L ACT #### [facility] [address] [place] [address] Dr. Hemanth Kerr Hematocrit (Bld) [Volume fraction] 35.6 % Critically low 36.0-48.0 [facility] Comment on above: Performed By: #### L ACT #### [facility] [address] [place] [address] Dr. Hemanth Kerr Hemoglobin (Bld) [Mass/Vol] 12.4 g/dL Normal 12.0-16.0 [facility] Comment on above: Performed By: #### L ACT #### [facility] [address] [place] [address] Dr. Hemanth Kerr IG # 0.02 10e3/ul Normal 0.00-0.03 [facility] Comment on above: Performed By: #### L ACT #### [facility] [address] [place] [address] Dr. Hemanth Kerr IG % 0.3 % Normal 0.0-0.5 [facility] Comment on above: Performed By: #### L ACT #### [facility] [address] [place] [address] Dr. Hemanth Kerr LYMPH # 1.9 103/ul Normal 1.2-3.8 [facility] Comment on above: Performed By: #### L ACT #### [facility] [address] [place] [address] Dr. Hemanth Kerr Lymphocytes/100 WBC (Bld) 27.5 % Normal 20.5-60.0 [facility] Comment on above: Performed By: #### L ACT #### [facility] [address] [place] [address] Dr. Hemanth Kerr MANUAL DIFF REQ NO Normal [facility] Comment on above: Performed By: #### L ACT #### [facility] [address] [place] [address] Dr. Hemanth Kerr MCH (RBC) [Entitic mass] 29.6 pg Normal 26.7-34.0 [facility] Comment on above: Performed By: #### L ACT #### [facility] [address] [place] [address] Dr. Hemanth Kerr MCHC (RBC) [Mass/Vol] 34.8 g/dL Normal 29.9-35.2 [facility] Comment on above: Performed By: #### L ACT #### [facility] [address] [place] [address] Dr. Hemanth Kerr MCV (RBC) [Entitic vol] 85.0 fL Normal 81.0-99.0 [facility] Comment on above: Performed By: #### L ACT #### [facility] [address] [place] [address] Dr. Hemanth Kerr MONO # 0.4 103/ul Normal 0.3-0.8 [facility] Comment on above: Performed By: #### L ACT #### [facility] [address] [place] [address] Dr. Hemanth Kerr Monocytes/100 WBC (Bld) 6.3 % Normal 1.7-12.0 [facility] Comment on above: Performed By: #### L ACT #### [facility] [address] [address] [address] Hemanth Kerr NEUT # 4.5 103/ul Normal 1.4-6.5 [facility] Comment on above: Performed By: #### L ACT #### [facility] [address] [address] [address] Hemanth Kerr Neutrophils/100 WBC (Bld) 64.0 % Normal 43.0-75.0 [facility] Comment on above: Performed By: #### L ACT #### [facility] [address] [place] [address] Dr. Hemanth Kerr Platelet mean volume (Bld) [Entitic vol] 10.6 fL Normal 9.5-13.5 [facility] Comment on above: Performed By: #### L ACT #### [facility] [address] [place] [address] Dr. Hemanth Kerr PLT 247 103/ul Normal 150-450 [facility] Comment on above: Performed By: #### L ACT #### [facility] [address] [place] [address] Dr. Hemanth Kerr RBC 4.19 106/ul Critically low 4.20-5.40 [facility] Comment on above: Performed By: #### L ACT #### [facility] [address] [place] [address] Dr. Hemanth Kerr WBC 7.0 103/ul Normal 4.0-11.0 [facility] Comment on above: Performed By: #### L ACT #### [facility] [address] [place] [address] Dr. Hemanth Kerr Covid-19 PCR ([facility])on 07-20 SARS-CoV-2 (COVID-19) RNA ELMO+probe Ql (Unsp spec) Not detected Normal NOT DETECTED [facility] Comment on above: Result Comment: This test is not yet approved or cleared by the [place] FDA. When there are no FDA-approved or cleared tests available, and other criteria are met, FDA can make tests available under an emergency access mechanism called an Emergency Use Authorization (EUA). The EUA for this test is supported by the Health Concierge of Health and Human Service's (HHS's) declaration [...] SARS-CoV-2. Performed By: #### C MP #### [facility] [address] [place] [address] Dr. Hemanth Kerr PREG QUANT HCGon 08-16-2022 HCG QUANT 86684 mIU/mL Normal [facility] Comment on above: Performed By: #### P REG #### [facility] [address] [place] [address] Dr. Hemanth Kerr HCG RANGE SEE BELOW Normal [facility] Comment on above: Result Comment: 5-50 0.2-1 WEEK 50-500 1-2 WEEKS 100-5,000 2-3 WEEKS 500-10,000 3-4 WEEKS 1,000-50,000 4-5 WEEKS 10,000-100,000 5-6 WEEKS 15,000-200,000 6-8 WEEKS 10,000-100,000 2-3 MONTHS Performed By: #### P REG #### [facility] [address] [place] [address] Dr. Hemanth Kerr PREG QUANT HCGon 08-14-2022 HCG QUANT 81000 mIU/mL Normal [facility] Comment on above: Performed By: #### P REG #### [facility] [address] [place] [address] Dr. Hemanth Kerr HCG RANGE SEE BELOW Normal [facility] Comment on above: Result Comment: 5-50 0.2-1 WEEK 50-500 1-2 WEEKS 100-5,000 2-3 WEEKS 500-10,000 3-4 WEEKS 1,000-50,000 4-5 WEEKS 10,000-100,000 5-6 WEEKS 15,000-200,000 6-8 WEEKS 10,000-100,000 2-3 MONTHS Performed By: #### P REG #### [facility] [address] [address] [address] Hemanth Kerr US PREG TVon 08-14-2022 [...] by: CHRISTINE SÁNCHEZ Date: 2022-08-14 16:22 Normal [facility] US PREG TVon 07-27-2022 US PREG [...] by: CHRISTINE SÁNCHEZ Date: 2022-07-27 17:04 Normal [facility] XR CHEST 1 Von 07-09-2022 XR [...] by: FELIX WEBB Date: 2022-07-09 12:[address] [facility] ([id number]) 1995 F Date Time Provider Department 12/12/21 KING SUAZO During your visit today, we recorded the following information about you: Angelia Almazan 12/12/2021 11:16 AM Signed Pleases sign pending new cbc order. Thanks, Angelia Almazan MA Allergies As of Date: 12/12/2021 (No Known Allergies) Date Reviewed: 12/12/2021 Reviewed by: Jasmin Silverio APRN.[facility] - Fully Assessed Reason for Visit: Lab Orders [168] Primary Visit Diagnosis:Iron deficiency anemia, unspecified iron deficiency anemia type [D50.9] Order(s):CBC + DIFF [SQCBCDIF] Order #: [id number] FUTURE Prescriptions as of 12/12/2021 - gabapentin (NEURONTIN) 400 mg capsule Take by mouth. - Polysaccharide Iron Complex 180 mg iron cap Take by mouth. - aspirin 81 mg cap Take 81 mg by mouth once daily. - ONDANSETRON HCL ORAL Take 4 mg by mouth as needed. Problem List As Of Date: 12/12/2021 (None) Encounter Status:Closed by JASMIN SILVERIO on 12/12/[address] [facility] 11[facility]10-20[facility] NOE ERVIN ([id number]) 1995 F Date Time Provider Department 11/10/21 [...] B12 is slightly low. Options would be iksv-kni-diwkelu B12 tablets 2 mg daily or start a monthly injection. Thanks, MELANY De La O RN 11/10/2021 3:40 PM Signed Informed pt of Dr Suazo's message. Pt verbalized understanding and states [facility] told her only 2 doses of [...] by JENNYFER DE LA O on 11/10/21 [facility] CNOVSPon 11-08-2021 CNOVSP Visit (SP) Office (HEMASA) NOE ERVIN ([id number]) 1995 F Date Time Provider Department 11/08/21 [...] shortness of breath, and is seen at [place] emergency room. Labs revealed a hemoglobin of [...] changes, r (more content not included)... Normal [facility] Comp Metabolic Panelon 11-08 Albumin [Mass/Vol] 3.6 g/dL Low 3.9-4.9 [facility] Comment on above: Performed By: #### S ERFOL, IRON, B12, FERR #### [address] [place], [place] [address] ALP [Catalytic activity/Vol] 79 U/L Normal 34-123 [facility] Comment on above: Performed By: #### S ERFOL, IRON, B12, FERR #### [facility] [address] [place], [place] [address] ALT [Catalytic activity/Vol] 8 U/L Normal 7-38 [facility] Comment on above: Performed By: #### S ERFOL, IRON, B12, FERR #### [facility] [address] [place], [place] [address] Anion gap [Moles/Vol] 9 mmol/L Normal 9-18 [facility] Comment on above: Performed By: #### S ERFOL, IRON, B12, FERR #### [facility] [address] [place], [place] [address] AST [Catalytic activity/Vol] 13 U/L Normal 13-35 [facility] Comment on above: Performed By: #### S ERFOL, IRON, B12, FERR #### [address] [place] [address] Bilirubin [Mass/Vol] 0.2 mg/dL Normal 0.2-1.3 [facility] Comment on above: Performed By: #### S ERFOL, IRON, B12, FERR #### [address] [address] Calcium [Mass/Vol] 9.3 mg/dL Normal 8.5-10.2 [facility] Comment on above: Performed By: #### S ERFOL, IRON, B12, FERR #### [address] [place] [address] Chloride [Moles/Vol] 102 mmol/L Normal 97-105 [facility] Comment on above: Performed By: #### S ERFOL, IRON, B12, FERR #### [address] [place] [address] CO2 [Moles/Vol] 23 mmol/L Normal 22-30 [facility] Comment on above: Performed By: #### S ERFOL, IRON, B12, FERR #### [address] [address] Creatinine [Mass/Vol] 0.55 mg/dL Low 0.58-0.96 [facility] Comment on above: Performed By: #### S ERFOL, IRON, B12, FERR #### [address] [place] [address] eGFR- Amer. >60 Normal [facility] Comment on above: Performed By: #### S ERFOL, IRON, B12, FERR #### [address] [place] [address] eGFR-All Other Races >60 Normal [facility] Comment on above: Result Comment: eGFR (Estimated [...] #### S ERFOL, IRON, B12, FERR #### [facility] [employer] [address] [place], [place] [address] Glucose [Mass/Vol] 96 mg/dL Normal 74-99 [facility] Comment on above: Result Comment: The [place] Diabetes Association (ADA) provides guidance for cutoff [...] Standards of Medical Care in Diabetes 2016, [place] [employer] Association. Diabetes Care. 2016.39(Suppl 1). Performed By: #### S ERFOL, IRON, B12, FERR #### [facility] [employer] [address] [place], [place] [address] Potassium [Moles/Vol] 3.3 mmol/L Low 3.7-5.1 [facility] Comment on above: Performed By: #### S ERFOL, IRON, B12, FERR #### [address] [place], [place] [address] Protein [Mass/Vol] 6.3 g/dL Normal 6.3-8.0 [facility] Comment on above: Performed By: #### S ERFOL, IRON, B12, FERR #### [address] [address] Sodium [Moles/Vol] 134 mmol/L Low 136-144 [facility] Comment on above: Performed By: #### S ERFOL, IRON, B12, FERR #### [address] [place] [address] Urea nitrogen [Mass/Vol] 4 mg/dL Low 7-21 [facility] Comment on above: Performed By: #### S ERFOL, IRON, B12, FERR #### [address] [place] [id number] Ferritinon 11-08-2021 Ferritin [Mass/Vol] 203.0 ng/mL Normal 14.7-205.1 [facility] [place] Comment on above: Performed By: #### S ERFOL, IRON, B12, FERR #### [address] [address] Folate, Serumon 11-08-2021 Folate [Mass/Vol] 8.5 ng/mL Normal >4.7 [facility] Comment on above: Performed By: #### S ERFOL, IRON, B12, FERR #### [address] [address] Iron and TIBCon 11-08-2021 Iron [Mass/Vol] 93 ug/dL Normal 41-186 [facility] Comment on above: Performed By: #### S ERFOL, IRON, B12, FERR #### [address] [address] TIBC 407 ug/dL High 232-386 [facility] Comment on above: Performed By: #### S ERFOL, IRON, B12, FERR #### [facility] [address] [place] [id number] Transferrin Saturatn 23 % Normal 15-57 [facility] Comment on above: Performed By: #### S ERFOL, IRON, B12, FERR #### [facility] [employer] [address] [place], [place] [address] Remote CBCDIF (for [facility] use o nly)on 11-08-2021 Abs Baso <0.03 Normal <0.11 [facility] Abs [place] 0.57 k/uL Normal <0.87 [facility] Abs Neut 4.67 k/uL Normal 1.45-7.50 [facility] Absolute nRBC <0.01 Normal <0.01 [facility] Basophils/100 WBC (Bld) 0.3 % Normal [facility] DTYPE Auto Diff Normal [facility] Eosinophils (Bld) [#/Vol] 0.05 10*3/uL Normal <0.46 [facility] Eosinophils/100 WBC (Bld) 0.8 % Normal [facility] Erythrocyte distribution width (RBC) [Ratio] 29.9 % High 11.5-15.0 [facility] Hematocrit (Bld) [Volume fraction] 32.6 % Low 36.0-46.0 [facility] Hemoglobin (Bld) [Mass/Vol] 10.1 g/dL Low 11.5-15.5 [facility] Lymphocytes (Bld) [#/Vol] 1.25 10*3/uL Normal 1.00-4.00 [facility] Lymphocytes/100 WBC (Bld) 19.1 % Normal [facility] MCH 25.1 pG Low 26.0-34.0 [facility] MCHC (RBC) [Mass/Vol] 31.0 g/dL Normal 30.5-36.0 [facility] MCV (RBC) [Entitic vol] 81.1 fL Normal 80.0-100.0 [facility] Monocytes/100 WBC (Bld) 8.7 % Normal [facility] Neutrophils/100 WBC (Bld) 71.1 % Normal [facility] NRBCs 0.0 /100 WBC Normal 0 [facility] Platelet mean volume (Bld) [Entitic vol] 10.3 fL Normal 9.0-12.7 [facility] Platelets (Bld) [#/Vol] 223 10*3/uL Normal 150-400 [facility] Comment on above: Result Comment: Resu lt checked and verified Sample checked for a clot. RBC (Bld) [#/Vol] 4.02 10*6/uL Normal 3.90-5.20 [facility] WBC (Bld) [#/Vol] 6.56 10*3/uL Normal 3.70-11.00 [facility] Reticulocyteon 11-08-2021 Abs Retic 0.140 M/uL High 0.0180-0.1000 [facility] Comment on above: Performed By: #### S ERFOL, IRON, B12, FERR #### [address] [address] Retic% 3.5 % High 0.4-2.0 [facility] Comment on above: Performed By: #### S ERFOL, IRON, B12, FERR #### [address] [place] [id number] Vitamin B12on 11-08-2021 Cobalamin (Vitamin B12) [Mass/Vol] 218 pg/mL Low 232-1245 [facility] Comment on above: Performed By: #### S ERFOL, IRON, B12, FERR #### [address] [place] [address] HCV RNA,Quant,PCRon 04-27-20 20 HCV RNA,Quant,PCR Specimen [...] genotypes 1-6. Report Status FINAL 04/27/2020 Normal [facility] Comment on above: Performed By: #### H IVCMB, PHEP #### [address] [address] Sand Control Worker: Dom Fowler MD #### CP #### [facility] [address] [place] [address] [address]. [phone] Sand Control Worker: Shakeel Graham MD [facility] 04-26-2020 Erythrocyte distribution width (RBC) [Ratio] 14.7 % High 11.8-14.4 [facility] Comment on above: Performed By: #### H IVCMB, PHEP #### [address] [address] Sand Control Worker: Dom Fowler MD #### CP #### [facility] [address] [place] [address] Dr. [phone] Sand Control Worker: Shakeel Graham MD Hematocrit (Bld) [Volume fraction] 36.0 % Low 36.3-47.1 [facility] Comment on above: Performed By: #### H IVCMB, PHEP #### [address] [address] Sand Control Worker: Dom Fowler MD #### CP #### [facility] [address] [place] [address] [address] [phone] Sand Control Worker: Shakeel Graham MD Hemoglobin (Bld) [Mass/Vol] 10.9 g/dL Low 11.9-15.1 [facility] Comment on above: Performed By: #### H IVCMB, PHEP #### [address] [address] Sand Control Worker: Dom Fowler MD #### CP #### [facility] [address] [place] [address] [place], [place] [id number] Sand Control Worker: Shakeel Graham MD MCH (RBC) [Entitic mass] 26.2 pg Normal 25.2-33.5 [facility] Comment on above: Performed By: #### H IVCMB, PHEP #### [address] [address] Sand Control Worker: Dom Fowler MD #### CP #### [facility] [address] [place] [address] Dr. [phone] Sand Control Worker: Shakeel Graham MD MCHC (RBC) [Mass/Vol] 30.3 g/dL Normal 28.4-34.8 [facility] Comment on above: Performed By: #### H IVCMB, PHEP #### [address] [address] Sand Control Worker: Dom Fowler MD #### CP #### [address] [place] [phone] Sand Control Worker: Shakeel Graham MD MCV (RBC) [Entitic vol] 86.5 fL Normal 82.6-102.9 [facility] Comment on above: Performed By: #### H IVCMB, PHEP #### [address] [address] Sand Control Worker: Dom Fowler MD #### CP #### [address] [place] [phone] Sand Control Worker: Shakeel Graham MD NRBC Automated 0.0 per 100 WBC Normal 0.0 [facility] Comment on above: Performed By: #### H IVCMB, PHEP #### [address] [address] Sand Control Worker: Dom Fowler MD #### CP #### [address] [place], [place] [id number] Sand Control Worker: Shakeel Graham MD Platelet mean volume (Bld) [Entitic vol] 10.8 fL Normal 8.1-13.5 [facility] Comment on above: Performed By: #### H IVCMB, PHEP #### [address] [address] Sand Control Worker: Dom Fowler MD #### CP #### [address] [place], [place] [id number] Sand Control Worker: Shakeel Graham MD Platelets (Bld) [#/Vol] 328 10*3/uL Normal 138-453 [facility] Comment on above: Performed By: #### H IVCMB, PHEP #### [address] [address] Sand Control Worker: Dom Fowler MD #### CP #### [address] [place], [place] [address] Sand Control Worker: Shakeel Graham MD RBC (Bld) [#/Vol] 4.16 10*6/uL Normal 3.95-5.11 [facility] Comment on above: Performed By: #### H IVCMB, PHEP #### [address] [address] Sand Control Worker: Dom Fowler MD #### CP #### [address] [place], [place] [id number] Sand Control Worker: Shakeel Graham MD WBC (Bld) [#/Vol] 5.7 10*3/uL Normal 3.5-11.3 [facility] Comment on above: Performed By: #### H IVCMB, PHEP #### [address] [address] Sand Control Worker: Dom Fowler MD #### CP #### [address] [place] [address] Sand Control Worker: Shakeel Graham MD Erythrocyte distribution width (RBC) [Ratio] 14.7 % High 11.8 - 14.4 % [place], [place] Hematocrit (Bld) [Volume fraction] 36.0 % Low 36.3 - 47.1 % [place], [place] Hemoglobin (Bld) [Mass/Vol] 10.9 g/dL Low 11.9 - 15.1 g/dL [place], [place] Interpretation and review of laboratory results Abnormal [place] MCH (RBC) [Entitic mass] 26.2 pg 25.2 - 33.5 pg [place] MCHC (RBC) [Mass/Vol] 30.3 g/dL 28.4 - 34.8 g/dL [place] MCV (RBC) [Entitic vol] 86.5 fL 82.6 - 102.9 fL [place] Platelet mean volume (Bld) [Entitic vol] 10.8 fL 8.1 - 13.5 fL [place], [place] Platelets (Bld) [#/Vol] 328 10*3/uL [place] RBC (Bld) [#/Vol] 4.16 10*6/uL 3.95 - 5.1 1 m/uL [place] WBC (Bld) [#/Vol] 0.0 10*3/uL 0.0 per 100 WBC [place], [place] WBC (Bld) [#/Vol] 5.7 10*3/uL [place], [place] Comp Metabolic Profon 2019 Bilirubin Ql (U) <0.10 Low 0.3-1.2 [facility] Comment on above: Performed By: #### H IVCMB, PHEP #### [facility] [employer] [address] [place] [address] Sand Control Worker: Dom Fowler MD #### CP #### [facility] [address] [place] [address] Sand Control Worker: Shakeel Graham MD (cont.) Normal [facility] Comment on above: Result Comment: Aver age GFR for 20-29 years old: 116 mL/min/1.73sq m Chronic Kidney Disease: <60 mL/min/1.73sq m Kidney failure: <15 mL/min/1.73sq m eGFR calculated using average adult body mass. Additional eGFR calculator available at: http://www.[employer]/multiple_crcl_2011.htm Performed By: #### H IVCMB, PHEP #### [facility] [address] [place] [address] Sand Control Worker: Dom Fowler MD #### CP #### [facility] [address] [place] [address] Sand Control Worker: Shakeel Graham MD Albumin [Mass/Vol] 3.4 g/dL Low 3.5-5.2 [facility] Comment on above: Performed By: #### H IVCMB, PHEP #### [address] [place] [address] Sand Control Worker: Dom Fowler MD #### CP #### [facility] [address] [place] [address] Sand Control Worker: Shakeel Graham MD Albumin/Globulin [Mass ratio] 1.5 {ratio} Normal 1.0-2.5 [facility] Comment on above: Performed By: #### H IVCMB, PHEP #### [address] [place] [address] Sand Control Worker: Dom Fowler MD #### CP #### [facility] [address] [place] [address] Sand Control Worker: Shakeel Graham MD Alkaline Phos 40 U/L Normal 35-104 [facility] Comment on above: Performed By: #### H IVCMB, PHEP #### [address] [address] Sand Control Worker: Dom Fowler MD #### CP #### [facility] [address] [place], [place] [id number] Sand Control Worker: Shakeel Graham MD ALT [Catalytic activity/Vol] 12 U/L Normal 5-33 [facility] Comment on above: Performed By: #### H IVCMB, PHEP #### [facility] [address] [place] [address] Sand Control Worker: Dom Fowler MD #### CP #### [facility] [address] [place], [place] [phone] Sand Control Worker: Shakeel Graham MD Anion gap [Moles/Vol] 9 mmol/L Normal 9-17 [facility] Comment on above: Performed By: #### H IVCMB, PHEP #### [facility] [address] [place] [address] Sand Control Worker: Dom Fowler MD #### CP #### [facility] [address] [place], [place] [id number] Sand Control Worker: Shakeel Graham MD AST [Catalytic activity/Vol] 12 U/L Normal <32 [facility] Comment on above: Performed By: #### H IVCMB, PHEP #### [facility] [address] [place] [address] Sand Control Worker: Dom Fowler MD #### CP #### [facility] [address] [place], [place] [id number] Sand Control Worker: Shakeel Graham MD BUN/CRE Ratio 26 High 9-20 [facility] Comment on above: Performed By: #### H IVCMB, PHEP #### [facility] [address] [place] [address] Sand Control Worker: Dom Fowler MD #### CP #### [facility] [address] [place], [place] [id number] Sand Control Worker: Shakeel Graham MD Calcium [Mass/Vol] 9.3 mg/dL Normal 8.6-10.4 [facility] Comment on above: Performed By: #### H IVCMB, PHEP #### [address] [address] Sand Control Worker: Dom Fowler MD #### CP #### [facility] [address] [place] [address] Dr. [address] [phone] Sand Control Worker: Shakeel Graham MD Chloride [Moles/Vol] 109 mmol/L High 98-107 [facility] Comment on above: Performed By: #### H IVCMB, PHEP #### [address] [address] Sand Control Worker: Dom Fowler MD #### CP #### [facility] [address] [place] [address] [place] [id number] Sand Control Worker: Shakeel Graham MD CO2 [Moles/Vol] 26 mmol/L Normal 20-31 [facility] Comment on above: Performed By: #### H IVCMB, PHEP #### [address] [address] Sand Control Worker: Dom Fowler MD #### CP #### [address] [place] [id number] Sand Control Worker: Shakeel Graham MD Creatinine [Mass/Vol] 0.57 mg/dL Normal 0.50-0.90 [facility] Comment on above: Performed By: #### H IVCMB, PHEP #### [address] [address] Sand Control Worker: Dom Fowler MD #### CP #### [facility] [address] [place] [address] [place], [place] [id number] Sand Control Worker: Shakeel Graham MD GFR, Amer >60 Normal >60 [facility] Comment on above: Performed By: #### H IVCMB, PHEP #### [facility] [address] [place] [address] Sand Control Worker: Dom Fowler MD #### CP #### [facility] [address] [place], [place] [id number] Sand Control Worker: Shakeel Graham MD GFR,non Amer >60 Normal >60 [facility] Comment on above: Performed By: #### H IVCMB, PHEP #### [address] [address] Sand Control Worker: Dom Fowler MD #### CP #### [facility] [address] [place] [address] Dr. [place], [place] [id number] Sand Control Worker: Shakeel Graham MD Glucose [Mass/Vol] 92 mg/dL Normal 70-99 [facility] Comment on above: Performed By: #### H IVCMB, PHEP #### [address] [address] Sand Control Worker: Dom Fowler MD #### CP #### [facility] [address] [place] [address] [place] [address] Sand Control Worker: Shakeel Graham MD Potassium [Moles/Vol] 3.8 mmol/L Normal 3.7-5.3 [facility] Comment on above: Performed By: #### H IVCMB, PHEP #### [facility] [address] [place] [address] Sand Control Worker: Dom Fowler MD #### CP #### [facility] [address] [place], [place] [phone] Sand Control Worker: Shakeel Graham MD Protein [Mass/Vol] 5.7 g/dL Low 6.4-8.3 [facility] Comment on above: Performed By: #### H IVCMB, PHEP #### [address] [address] Sand Control Worker: Dom Fowler MD #### CP #### [facility] [address] [place] [address] Sand Control Worker: Shakeel Graham MD Sodium [Moles/Vol] 144 mmol/L Normal 135-144 [facility] Comment on above: Performed By: #### H IVCMB, PHEP #### [place] [address] [place] [address] Sand Control Worker: Dom Fowler MD #### CP #### [facility] [address] [place] [address] Sand Control Worker: Shakeel Graham MD Staging: Normal [facility] Comment on above: Result Comment: Stag e 1: Some kidney damage normal GFR Stage 2: Mild kidney damage GFR 60-89 Stage 3: Moderate kidney damage GFR 30-59 Stage 4: Severe kidney damage GFR 15-29 Stage 5: Severe kidney damage GFR <15 ESRD - chronic treatment by dialysis or transplant Performed By: #### H IVCMB, PHEP #### [facility] [address] [place] [address] Sand Control Worker: Dom Fowler MD #### CP #### [address] [place] [address] Sand Control Worker: Shakeel Graham MD Urea nitrogen [Mass/Vol] 15 mg/dL Normal 6-20 [facility] Comment on above: Performed By: #### H IVCMB, PHEP #### [facility] [address] [place] [address] Sand Control Worker: Dom Fowler MD #### CP #### [address] [place] [address] Sand Control Worker: Shakeel Graham MD [facility] 04-26-2020 Albumin [Mass/Vol] 3.4 g/dL Low 3.5 - 5.2 g/dL [place], [place] Albumin/Globulin [Mass ratio] 1.5 {ratio} [place] ALP [Catalytic activity/Vol] 40 U/L 35 - 104 U/L [place] ALT [Catalytic activity/Vol] 12 U/L 5 - 33 U/L [place] Anion gap [Moles/Vol] 9 mmol/L 9 - 17 mmol/L [place] AST [Catalytic activity/Vol] 12 U/L <32 [place] Bilirubin Ql (U) <0.10 Low 0.3 - 1.2 mg/dL [place], [place] Bun/Cre Ratio 26 High [place], [place] Calcium [Mass/Vol] 9.3 mg/dL 8.6 - 10. 4 mg/dL [place] Chloride [Moles/Vol] 109 mmol/L High 98 - 107 mmol/L [place] CO2 [Moles/Vol] 26 mmol/L 20 - 31 mmol/L [place] Creatinine [Mass/Vol] 0.57 mg/dL 0.5 - 0.9 mg/dL [place] GFR >60 >60 mL/min [place] GFR Non- >60 >60 mL/min [place] Glucose [Mass/Vol] 92 mg/dL 70 - 99 mg/dL [place] Interpretation and review of laboratory results Abnormal [place] Potassium [Moles/Vol] 3.8 mmol/L 3.7 - 5.3 mmol/L [place] Protein [Mass/Vol] 5.7 g/dL Low 6.4 - 8.3 g/dL [place] Sodium [Moles/Vol] 144 mmol/L 135 - 144 mmol/L [place] Urea nitrogen [Mass/Vol] 15 mg/dL 6 - 20 mg/dL [place] HCG Qualitative, Serumon hCG Qual Negative NEGATIVE [place] Comment on above: Specimens with hCG l evels near the threshold of the test (25 mIU/mL) may give a negative or indeterminate result. In such cases, another test should be performed with a new specimen in 48-72 hours. If early is suspected clinically in this setting, correlation with quantitative serum b-hCG level is suggested. [facility] has confirmed the use of plasma for this test. This has not been cleared or approved by the U.S. Food and Drug Administration. The FDA has determined that such clearance is not necessary. HCG Screen, Bloodon 04-26-20 20 HCG Qn Negative Normal NEG [facility] Comment on above: Result Comment: Spec imens with hCG levels near the threshold of the test (25 mIU/mL) may give a negative or indeterminate result. In such cases, another test should be performed with a new specimen in 48-72 hours. If early is suspected clinically in this setting, correlation with quantitative serum b-hCG level is suggested. [facility] has confirmed the use of plasma for this test. This has not been cleared or approved by the U.S. Food and Drug Administration. The FDA has determined that such clearance is not necessary. Performed By: #### H IVCMB, PHEP #### [facility] [address] [place], [place] [id number] Sand Control Worker: Dom Fowler MD #### CP #### [facility] [address] [place] [address] [place] [address] Sand Control Worker: Shakeel Graham MD HIV Ag/Abon 04-26-2020 HIV Ag/Ab NONREACTIVE Normal NR [facility] Comment on above: Result Comment: No l aboratory evidence of HIV infection. If acute HIV infection is suspected, consider testing for HIV-1 RNA. Performed By: #### H IVCMB, PHEP #### [facility] [address] [place] [address] Sand Control Worker: Dom Fowler MD #### CP #### [facility] [address] [place] [address] Sand Control Worker: Shakeel Graham MD HIV Screenon 04-26-2020 HIV Ag/Ab NONREACTIVE NONREACTIVE [facility], [place] Comment on above: No laboratory eviden ce of HIV infection. If acute HIV infection is suspected, consider testing for HIV-1 RNA. Hepatitis Acute [facility] 04-26 Hep A Ab,IgM NONREACTIVE Normal NR [facility] Comment on above: Performed By: #### H IVCMB, PHEP #### [facility] [address] [place] [address] Sand Control Worker: Dom Fowler MD #### CP #### [facility] [address] [place] [address] [place] [address] Sand Control Worker: Shakeel Graham MD Hep B Core Ab,IgM NONREACTIVE Normal [facility] Comment on above: Performed By: #### H IVCMB, PHEP #### [facility] [address] [place] [address] Sand Control Worker: Dom Fowler MD #### CP #### [address] [place] [address] Sand Control Worker: Shakeel Graham MD Hep B Surf Ag NONREACTIVE Normal [facility] Comment on above: Performed By: #### H IVCMB, PHEP #### [address] [address] Sand Control Worker: Dom Fowler MD #### CP #### [facility] [address] [place] [address] [place] [address] Sand Control Worker: Shakeel Graham MD Hep C Ab REACTIVE Abnormal [facility] Comment on [...] Performed By: #### H IVCMB, PHEP #### [facility] [address] [place] [address] Sand Control Worker: Dom Fowler MD #### CP #### [facility] [address] [place] [address] Sand Control Worker: Shakeel Graham MD Hepatitis Panel, Acuteon HAV IgM IA Qn (S) NONREACTIVE NONREACTIVE [place] Hep B Core Ab, IgM NONREACTIVE NONREACTIVE [place] Hepatitis B Surface Ag NONREACTIVE NONREACTIVE [place] Hepatitis C Ab REACTIVE Abnormal NONREACTIVE [place] Comment on above: The hepatitis C [...] Interpretation and review of laboratory results Abnormal [place] Metabolic Panelon 04-26-2020 GFR/1.73 sq M predicted among non-blacks MDRD (S/P/Bld) [Vol rate/Area] [place] Comment on above: Stage 1: Some [...] body mass. Additional eGFR calculator available at: http://www.GageIn.EPIS/multiple_crcl_2012.htm Microscopic Urinalysison Amorphous, UA NOT REPORTED None [place] Bacteria, UA NOT REPORTED None [place] Casts UA NOT REPORTED /LPF [place], [place] Crystals, UA 5 TO 10 Abnormal None /HPF [place] Crystals, UA CALCIUM OXALATE Abnormal None /HPF [place], [place] Epithelial Cells UA 0 TO 2 [place] Interpretation and review of laboratory results Abnormal [place] Mucus, UA TRACE Abnormal None [place] Other Observations UA NOT REPORTED NOT REQ. [place] RBC (U) [#/Vol] None [facility] [place] Renal Epithelial, UA NOT REPORTED 0 /HPF [place], [place] Trichomonas, UA NOT REPORTED None [facility] [place] WBC, UA 0 TO 2 [place] Yeast, UA NOT REPORTED None [place], [place] - [place] UA w/Reflex Cultureon 2019 Acetoacetic Acid,Ur Negative Normal NEG [facility] Comment on above: Performed By: #### H IVCMB, PHEP #### [address] [address] Sand Control Worker: Dom Fowler MD #### CP #### [address] [place] [phone] Sand Control Worker: Shakeel Graham MD Bilirubin, SemiQt,Ur Negative Normal [facility] Comment on above: Performed By: #### H IVCMB, PHEP #### [address] [address] Sand Control Worker: Dom Fowler MD #### CP #### [address] [place] [phone] Sand Control Worker: Shakeel Graham MD Color (U) YELLOW Normal [facility] Comment on above: Performed By: #### H IVCMB, PHEP #### [address] [address] Sand Control Worker: Dom Fowler MD #### CP #### [facility] [address] [place] [address] [place] [address] Sand Control Worker: Shakeel Graham MD Glucose Ql (U) Negative Normal NEG [facility] Comment on above: Performed By: #### H IVCMB, PHEP #### [address] [address] Sand Control Worker: Dom Fowler MD #### CP #### [facility] [address] [place] [address] Dr. [place], [place] [id number] Sand Control Worker: Shakeel Graham MD Hemoglobin, Ur Negative Normal NEG [facility] Comment on above: Performed By: #### H IVCMB, PHEP #### [address] [address] Sand Control Worker: Dom Fowler MD #### CP #### [address] [place] [address] Sand Control Worker: Shakeel Graham MD Leukocyte esterase Test strip Ql (U) Negative Normal NEG [facility] Comment on above: Performed By: #### H IVCMB, PHEP #### [address] [address] Sand Control Worker: Dom Fowler MD #### CP #### [address] [place] [address] Sand Control Worker: Shakeel Graham MD Nitrite,Ur Negative Normal NEG [facility] Comment on above: Performed By: #### H IVCMB, PHEP #### [address] [address] Sand Control Worker: Dom Fowler MD #### CP #### [address] [place] [address] Sand Control Worker: Shakeel Graham MD pH (U) 6.5 [pH] Normal 5.0-9.0 [facility] Comment on above: Performed By: #### H IVCMB, PHEP #### [address] [address] Sand Control Worker: Dmo Fowler MD #### CP #### [facility] [address] [place] [address] Sand Control Worker: Shakeel Graham MD Protein Ql (U) Negative Normal NEG [facility] Comment on above: Performed By: #### H IVCMB, PHEP #### [facility] [address] [place] [address] Sand Control Worker: Dom Fowler MD #### CP #### [address] [place] [address] Sand Control Worker: Shakeel Graham MD Specific gravity (U) [Rel density] 1.025 High 1.010-1.020 [facility] Comment on above: Performed By: #### H IVCMB, PHEP #### [facility] [address] [place] [address] Sand Control Worker: Dom Fowler MD #### CP #### [address] [place] [address] Sand Control Worker: Shakeel Graham MD Turbidity CLEAR Normal CLEAR [facility] Comment on above: Performed By: #### H IVCMB, PHEP #### [address] [address] Sand Control Worker: Dom Fowler MD #### CP #### [address] [place] [address] Sand Control Worker: Shakeel Graham MD Urobilinogen,Ur Normal Normal NORM [facility] Comment on above: Performed By: #### H IVCMB, PHEP #### [address] [address] Sand Control Worker: Dom Fowler MD #### CP #### [address] [place] [address] Sand Control Worker: Shakeel Graham MD Comment NOT REPORTED Normal [facility] Comment on above: Performed By: #### H IVCMB, PHEP #### [facility] [address] [place] [address] Sand Control Worker: Dom Fowler MD #### CP #### [address] [place] [address] Sand Control Worker: Shakeel Graham MD Urinalysis Reflex to Culture on 04-26-2020 Bilirubin Urine Negative NEGATIVE [facility], [place] Color, UA YELLOW YELLOW [facility], [place] Glucose, Ur Negative NEGATIVE [facility], [place] Interpretation and review of laboratory results Abnormal [place] Ketones Ql (U) Negative NEGATIVE [facility], [place] Leukocyte esterase Test strip Ql (U) Negative NEGATIVE [facility], [place] Nitrite, Urine Negative NEGATIVE [facility], [place] pH, UA 6.5 [place] Protein (U) [Mass/Vol] Negative NEGATIVE [facility], [place] Specific [place], UA 1.025 High [facility], [place] Turbidity UA CLEAR CLEAR [place] Urinalysis Comments NOT REPORTED [facility], [place] Urine Hgb Negative NEGATIVE [facility], [place] Urobilinogen, Urine Normal Normal [place] Urinalysis,Microon 0 ----- Normal [facility] Comment on above: Performed By: #### H IVCMB, PHEP #### [place] [address] [place] [address] Sand Control Worker: Dom Fowler MD #### CP #### [address] [place] [address] Sand Control Worker: Shakeel Graham MD Crystals LM Nom (Urine sed) CALCIUM OXALATE Abnormal NONE [facility] Comment on above: Result Comment: 5 TO 10 Performed By: #### H IVCMB, PHEP #### [facility] [address] [place] [address] Sand Control Worker: Dom Fowler MD #### CP #### [facility] [address] [place] [address] Sand Control Worker: Shakeel Graham MD Epithelial cells LM.HPF (Urine sed) [#/Area] 0 TO 2 Normal 0-25 [facility] Comment on above: Performed By: #### H IVCMB, PHEP #### [address] [address] Sand Control Worker: Dom Fowler MD #### CP #### [address] [place], [place] 9289883 Sand Control Worker: Shakeel Graham MD Mucus Strands TRACE Abnormal [facility] Comment on above: Performed By: #### H IVCMB, PHEP #### [address] [address] Sand Control Worker: Dom Fowler MD #### CP #### [address] [place] [id number] Sand Control Worker: Shakeel Graham MD RBC (U) [#/Vol] None Normal 0-2 [facility] Comment on above: Performed By: #### H IVCMB, PHEP #### [address] [address] Sand Control Worker: Dom Fowler MD #### CP #### [address] [place] [address] Sand Control Worker: Shakeel Graham MD WBC (U) [#/Vol] 0 TO 2 Normal 0-5 [facility] Comment on above: Performed By: #### H IVCMB, PHEP #### [address] [address] Sand Control Worker: Dom Fowler MD #### CP #### [address] [place], [place] 1508483 Sand Control Worker: Shakeel Graham MD Amorphous sediment LM Ql (Urine sed) NOT REPORTED Normal [facility] Comment on above: Performed By: #### H IVCMB, PHEP #### [address] [address] Sand Control Worker: Dom Fowler MD #### CP #### [facility] [address] [place] [address] Sand Control Worker: Shakeel Graham MD Bacteria LM.HPF (Urine sed) [#/Area] NOT REPORTED Normal NONE [facility] Comment on above: Performed By: #### H IVCMB, PHEP #### [address] [address] Sand Control Worker: Dom Fowler MD #### CP #### [address] [place] [address] Sand Control Worker: Shakeel Graham MD Casts LM.LPF (Urine sed) [#/Area] NOT REPORTED Normal [facility] Comment on above: Performed By: #### H IVCMB, PHEP #### [address] [address] Sand Control Worker: Dom Fowler MD #### CP #### [address] [place] [address] Sand Control Worker: Shakeel Graham MD Epithelial, Renal NOT REPORTED Normal 0 [facility] Comment on above: Performed By: #### H IVCMB, PHEP #### [address] [address] Sand Control Worker: Dom Fowler MD #### CP #### [address] [place] [address] Sand Control Worker: Shakeel Graham MD Other Observations NOT REPORTED Normal NREQ [facility] Comment on above: Performed By: #### H IVCMB, PHEP #### [address] [address] Sand Control Worker: Dom Fowler MD #### CP #### [facility] [address] [place], [place] 3268983 Sand Control Worker: Shakeel Graham MD Trichomonas NOT REPORTED Normal NONE [facility] Comment on above: Performed By: #### H IVCMB, PHEP #### [facility] [address] [place], [place] [id number] Sand Control Worker: Dom Fowler MD #### CP #### [facility] [address] [place] [id number] Sand Control Worker: Shakeel Graham MD Yeast LM Ql (Urine sed) NOT REPORTED Normal NONE [facility] Comment on above: Performed By: #### H IVCMB, PHEP #### [facility] [address] [place], [place] [id number] Sand Control Worker: Dom Fowler MD #### CP #### [facility] [address] [place] [address] Dr. [place] [id number] Sand Control Worker: Shakeel Graham MD ED Clinical Summaryon 2019 ED Clinical Summary [address] [address] ED Clinical Summary Person Information Name: Kathryn Ervin/[facility] Age: 25 Years : 1995 Sex: Female PCP: Marital Status: Single Phone: Race: White Ethnicity: Not or Language: Senegalese Visit Reason: Drug withdrawal; Drug withdrawal Acuity: 3 Enc Type: Emergency Med Service: Emergency Medicine Arrival: 03/16/2020 20:10:45 Discharge: 03/17/2020 02:12:00 LOS: 000 06:02 Checkin: 03/16/2020 20:10:45 Checkout: 03/17/2020 02:12:00 Dispo Type: Home or Self Care Address: [address] [place] [id number] Provider Notes: Diagnosis: 1:Affective disorder; 2:Drug usage [...] range between ( 27.2 and 40.8 ) [place] Auto: 11.4 % -- Normal range between [...] range between ( 36.0 and 46.0 ) [place] Absolute: 1.5 x10 MCH: 27.4 pg -- [...] 03/16/2020 20:20:41 Follow up: With: Address: When: [facility] In [place], [place] Within 1 to 2 days Discharge Orders: Discharge Patient 03/17/20 1:45:00 EDT, Discharge to Home, Self Patient Education Information: Understanding Methamphetamine Abuse and Addiction; Treating Affective (Mood) Disorders [facility] Poison Help line: . [facility] Mental Health Hotline: [place] Tobacco Quit Line: [place], [place]) [address]: [phone] [place], [place]) [address]: [phone] [facility] [address] [place], [place]: [phone] Normal [facility] hCG Quantitativeon 0 Beta hCG Qnt 1.7 mIU/mL Normal 0.0-4.9 [facility] Comment on above: Result Comment: 0.0 - 4.9 Negative for 5.0 - 25.0 Indeterminant for : Suggest repeat in 72 hours. >25.0 Positive for Performed By: #### H CG ####[place] [address] .UA Microscp Aon 03-16-2020 UA Hyline Cast Qual >20 Abnormal Negative [facility] Comment on above: Performed By: #### C [id number] ####[place] [address] UA Mucus Present Abnormal Absent [facility] Comment on above: Performed By: #### C [id number] ####[place] [id number] UA RBC Quant 12 /HPF High 0-5 [facility] Comment on above: Performed By: #### C [id number] ####[address] [address] UA Squepi Cells Quant 6 /HPF Normal 0-29 [facility] Comment on above: Performed By: #### C [id number] ####[address] [address] UA WBC Quant 7 /HPF High 0-5 [facility] Comment on above: Performed By: #### C [id number] ####[facility] [place] [address] .eGFRon 03-16-2020 eGFR AA 52 mL/min/1.73m? Low >=60 [facility] Comment on above: Result Comment: Resu lt = 0-14.9 mL/min/1.73 m2 Kidney failure or Dialysis Result = 15-29 mL/min/1.73 m2 Severe decrease in GFR Result = 30-59 mL/min/1.73 m2 Moderate decrease in GFR Result >= 60 mL/min/1.73 m2 Normal or increased GFR Performed By: #### E GFR #### [address] [address] eGFR Non-AA 43 mL/min/1.73m? Low >=60 [facility] Comment on above: Result Comment: Resu [...] dosing. Performed By: #### E GFR #### [address] [address] CBC w/ Diffon 03-16-2020 Erythrocyte distribution width (RBC) [Ratio] 15.9 % High 11.6-14.8 [facility] Comment on above: Performed By: #### C BC #### [address] [address] Hematocrit (Bld) [Volume fraction] 37.5 % Normal 36.0-46.0 [facility] Comment on above: Performed By: #### C BC #### [address] [address] Hemoglobin (Bld) [Mass/Vol] 12.5 g/dL Normal 12.0-16.0 [facility] Comment on above: Performed By: #### C BC #### [address] [address] MCH (RBC) [Entitic mass] 27.4 pg Normal 27.0-35.0 [facility] Comment on above: Performed By: #### C BC #### [address] [address] MCHC (RBC) [Mass/Vol] 33.2 % Normal 31.0-37.0 [facility] Comment on above: Performed By: #### C BC #### [address] [address] MCV (RBC) [Entitic vol] 82.4 fL Normal 80.0-100.0 [facility] Comment on above: Performed By: #### C BC #### [address] [address] Platelet mean volume (Bld) [Entitic vol] 9.4 fL Normal 6.7-10.6 [facility] Comment on above: Performed By: #### C BC #### [address] [address] Platelets (Bld) [#/Vol] 307 x10*3/mcL Normal 150-350 [facility] Comment on above: Performed By: #### C BC #### [address] [address] RBC (Bld) [#/Vol] 4.55 x10*6/mcL Normal 3.80-5.20 [facility] Comment on above: Performed By: #### C BC #### [address] [address] WBC (Bld) [#/Vol] 12.9 x10*3/mcL High 4.5-11.0 [facility] Comment on above: Performed By: #### C BC #### [address] [address] CMPon 03-16-2020 Albumin [Mass/Vol] 5.2 g/dL High 3.2-4.9 [facility] Comment on above: Result Comment: [facility] Laboratory updated the methodology used for albumin testing on 04/24/18. Albumin measurement was performed using a bromcresol purple dye-binding assay. Performed By: #### C OMP #### [address] [address] Albumin/Globulin [Mass ratio] 1.5 {ratio} Normal 1.1-2.2 [facility] Comment on above: Performed By: #### C OMP #### [address] [address] Alk Phos 47 IU/L Normal 32-91 [facility] Comment on above: Performed By: #### C OMP #### [address] [address] ALT [Catalytic activity/Vol] 19 U/L Normal 14-54 [facility] Comment on above: Performed By: #### C OMP #### [address] [address] Anion gap [Moles/Vol] 22 mmol/L High 7-17 [facility] Comment on above: Performed By: #### C OMP #### [address] [address] AST [Catalytic activity/Vol] 31 U/L Normal 15-41 [facility] Comment on above: Performed By: #### C OMP #### [address] [place] [address] Bili Total 1.4 mg/dL High 0.3-1.2 [facility] Comment on above: Performed By: #### C OMP #### [address] [address] Calcium [Mass/Vol] 10.2 mg/dL Normal 8.5-10.3 [facility] Comment on above: Performed By: #### C OMP #### [address] [address] Chloride [Moles/Vol] 100 mmol/L Normal 98-110 [facility] Comment on above: Performed By: #### C OMP #### [address] [address] CO2 [Moles/Vol] 19 mmol/L Low 22-32 [facility] Comment on above: Performed By: #### C OMP #### [address] [address] Creatinine [Mass/Vol] 1.47 mg/dL High 0.44-1.03 [facility] Comment on above: Performed By: #### C OMP #### [address] [address] Glucose [Mass/Vol] 85 mg/dL Normal 70-99 [facility] Comment on above: Performed By: #### C OMP #### [address] [address] Potassium [Moles/Vol] 3.7 mmol/L Normal 3.4-4.8 [facility] Comment on above: Performed By: #### C OMP #### [address] [address] Protein [Mass/Vol] 8.7 g/dL High 6.5-8.1 [facility] Comment on above: Performed By: #### C OMP #### [address] [address] Sodium [Moles/Vol] 137 mmol/L Normal 133-142 [facility] Comment on above: Performed By: #### C OMP #### [address] [address] Urea nitrogen [Mass/Vol] 25 mg/dL Normal 8-26 [facility] Comment on above: Performed By: #### C OMP #### [address] [address] Urea nitrogen/Creatinine [Mass ratio] 17.0 mg/mg Normal 10.0-20.0 [facility] Comment on above: Performed By: #### C OMP #### [address] [address] CPKon 03-16-2020 Creatine Phosphokinase 439 IU/L High 38-234 [facility] Comment on above: Performed By: #### C P #### [address] [address] Diff Autoon 03-16-2020 Baso Absolute 0.0 x10*3/mcL Normal 0.0-0.2 [facility] Comment on above: Performed By: #### . Automated Diff #### [address] [address] Basophils/100 WBC (Bld) 0.4 % Normal 0.0-1.5 [facility] Comment on above: Performed By: #### . Automated Diff #### [address] [address] Eos Absolute 0.0 x10*3/mcL Normal 0.0-0.4 [facility] Comment on above: Performed By: #### . Automated Diff #### [address] [address] Eosinophils/100 WBC (Bld) 0.1 % Normal 0.0-5.4 [facility] Comment on above: Performed By: #### . Automated Diff #### [address] [address] Lymphocytes (Bld) [#/Vol] 1.4 x10*3/mcL Normal 1.0-4.8 [facility] Comment on above: Performed By: #### . Automated Diff #### [address] [address] Lymphocytes/100 WBC (Bld) 10.8 % Low 27.2-40.8 [facility] Comment on above: Performed By: #### . Automated Diff #### [address] [address] [place] Absolute 1.5 x10*3/mcL High 0.1-1.1 [facility] Comment on above: Performed By: #### . Automated Diff #### [facility] [address] [place] [address] Monocytes/100 WBC (Bld) 11.4 % Normal 3.7-11.9 [facility] Comment on above: Performed By: #### . Automated Diff #### [facility] [address] [place] [address] Neutro Absolute 10.0 x10*3/mcL High 1.8-7.7 [facility] Comment on above: Performed By: #### . Automated Diff #### [facility] [address] [place] [address] Neutro Auto 77.3 % High 47.2-70.8 [facility] Comment on above: Performed By: #### . Automated Diff #### [address] [address] ED Note-Nursingon 03-16-2020 ED Note-Nursing Lab called about add ons Electronically signed by Barbara Holman 03/16/20 20:49 EDT Normal [facility] ED Note-Physicianon 03-16-20 ED Note-Physician Chief Complaint [...] that she has residential set up at [facility] in [place], [place] but she has to detox first. [...] well. She was seen by Alonso, social worker delinquency prevention who has arranged for her to go to [facility] tomorrow as patient is interested in treatment. Verbally contracted to safety and filled out a safety plan. Alonso with social work spoke with museum director, Jelena who will arrange for further follow-up when they arrive tomorrow. Family is agreeable with plan. Patient has good support. They will return if any changes of symptoms or concern. Silvia Castañeda scribing for and in the presence of Dr. Cornell. Scribe Attestation: The information in this document, created by the medical diagnostic radiographer for me, accurately reflects the services I [...] High Lymph Auto 03/16/20 20:39 10.8 Low [place] Auto 03/16/20 20:39 11.4 Eos Auto 03/16/20 20:39 0.1 Basophil Auto 03/16/20 20:39 0.4 Neutro Absolute 03/16/20 20:39 10.0 High Lymph Absolute 03/16/20 20:39 1.4 [place] Absolute 03/16/20 20:39 1.5 High Eos Absolute [...] Lima Cornell MD 03/17/2020 04:16 EDT Normal [facility] Ethanolon 03-16-2020 Ethanol [Mass/Vol] mg/dL Normal <=9 [facility] Comment on above: Result Comment: To c onvert mg/dL to g/dL, divide result by 1,000. Legal limit of intoxication is 80 mg/dL (0.08 g/dL). Performed By: #### A LC #### [address] [address] UA w Culture if Indon 2019 Color (U) Terri Normal [facility] Comment on above: Performed By: #### U CI #### [address] [address] Glucose (U) [Mass/Vol] Negative Normal Negative [facility] Comment on above: Performed By: #### U CI #### [address] [address] Ketones Ql (U) 20 mg/dL Abnormal Negative [facility] Comment on above: Performed By: #### U CI #### [address] [address] UA Blood Small Abnormal Negative [facility] Comment on above: Performed By: #### U CI #### [address] [address] UA Clarity Cloudy Normal [facility] Comment on above: Performed By: #### U CI #### [address] [address] UA Leukocyte Esterase Trace Abnormal Negative [facility] Comment on above: Performed By: #### U CI #### [address] [address] UA Nitrite Negative Normal Negative [facility] Comment on above: Performed By: #### U CI #### [address] [address] UA pH 5.0 Normal 4.5 - 7.8 [facility] Comment on above: Performed By: #### U CI #### [address] [address] UA Protein 100 mg/dL Abnormal Negative [facility] Comment on above: Performed By: #### U CI #### [address] [address] UA Source Clean Catch Normal [facility] Comment on above: Performed By: #### U CI #### [address] [address] UA Spec Grav 1.025 Normal 1.003-1.035 [facility] Comment on above: Performed By: #### U CI #### [address] [address] UA Urobilinogen 0.2 mg/dL Normal 0.2 - 1.0 [facility] Comment on above: Performed By: #### U CI #### [place] [id number] Urobilinogen Qn (U) Small Abnormal Negative [facility] Comment on above: Performed By: #### U CI #### [address] [address] UDS Compon 03-16-2020 Creatinine [Mass/Vol] mg/dL Normal [facility] Comment on above: Performed By: #### C [id number] #### [address] [address] Ur Amph Scrn Positive Abnormal NEG = <1000 [facility] Comment on above: Result Comment: This unconfirmed positive screening result is to be used for medical treatment purposes only. Unconfirmed screening results must not be used for non-medical purposes. (e.g. employment testing, legal testing). Performed By: #### C [id number] #### [address] [address] Ur Anastasia Scrn Negative Normal NEG = <200 [facility] Comment on above: Performed By: #### C [id number] #### [facility] [address] [facility] [place] [address] Ur Benzodia Scrn Negative Normal NEG = <200 [facility] Comment on above: Performed By: #### C [id number] #### [facility] [address] [place] [address] Ur Cannab Scrn Negative Normal NEG = <50 [facility] Comment on above: Performed By: #### C [id number] #### [facility] [address] [place] [address] [place] [address] Ur Cocaine Scrn Negative Normal NEG = <300 [facility] Comment on above: Performed By: #### C [id number] #### [address] [place] [address] Ur Methadone Scn Negative Normal NEG = <300 [facility] Comment on above: Performed By: #### C [id number] #### [address] [place] [address] Ur Opiate Scrn Negative Normal NEG = <300 [facility] Comment on above: Performed By: #### C [id number] #### [facility] [address] [place] [address], [place] [address] Ur Oxy Screen Negative Normal NEG = <100 [facility] Comment on above: Performed By: #### C [id number] #### [facility] [address] [place] [address] [place] [address] Ur Oxy Scrn Qnt 54 ng/mL Normal <=99 [facility] Comment on above: Performed By: #### C [id number] #### [facility] [address] [place] [address] [place] [address] Ur PCP Scrn Negative Normal NEG = <25 [facility] Comment on above: Performed By: #### C [id number] #### [address] [place] [address] UA pH 5.0 Normal 4.5 - 7.8 [facility] Comment on above: Performed By: #### C [id number] #### [facility] [address] [place] [address] UA Spec Grav 1.024 Normal 1.003-1.035 [facility] Comment on above: Performed By: #### C [id number] #### [facility] [address] [place] [address] Chlamydia/GC DNA, Uron 11-23 Chlamydia Probe, Ur Negative Normal NEG [facility] Comment on above: Result Comment: CHLA [...] Performed By: #### H IVCMB, PHEP #### [address] [id number] Sand Control Worker: Dom Fowler MD #### CP #### [facility] [address] [place], [facility]83 Sand Control Worker: Shakeel Graham MD Gonorrhea Probe, Ur Negative Normal NEG [facility] Comment on above: Result Comment: NEIS [...] Performed By: #### H IVCMB, PHEP #### [place] [address] [place], [place] [id number] Sand Control Worker: Dom Fowler MD #### CP #### [facility] [address] [place] [address] Sand Control Worker: Shakeel Graham MD Cult,Urineon 11-22-2019 Cult,Urine Specimen Description .VOIDED URINE Special Requests NOT REPORTED Culture NO SIGNIFICANT GROWTH Report Status FINAL 11/22/2019 Normal [facility] Comment on above: Performed By: #### H IVCMB, PHEP #### [facility] [address] [place] [address] Sand Control Worker: Dom Fowler MD #### CP #### [facility] [address] [place] [address] Sand Control Worker: Shakeel Graham MD HIV Ag/Abon 11-21-2019 HIV Ag/Ab NONREACTIVE Normal NR [facility] Comment on above: Result Comment: No l aboratory evidence of HIV infection. If acute HIV infection is suspected, consider testing for HIV-1 RNA. Performed By: #### H IVCMB, PHEP #### [place] [address] [place] [address] Sand Control Worker: Dom Fowler MD #### CP #### [facility] [address] [place] [address] Sand Control Worker: Shakeel Graham MD HIV Screenon 11-21-2019 HIV Ag/Ab NONREACTIVE NONREACTIVE [place], [place] Comment on above: No laboratory eviden ce of HIV infection. If acute HIV infection is suspected, consider testing for HIV-1 RNA. Hep C Abon 11-21-2019 Hep C Ab REACTIVE Abnormal NR [facility] Comment on above: Result Comment: The [...] Performed By: #### H IVCMB, PHEP #### [facility] [address] [place] [address] Sand Control Worker: Dom Fowler MD #### CP #### [facility] [address] [place] [address] [place] [address] Sand Control Worker: Shakeel Graham MD Profileon 0 Hep B Surf Ag NONREACTIVE Normal NR [facility] Comment on above: Performed By: #### H IVCMB, PHEP #### [place] [address] [place] [address] Sand Control Worker: Dom Fowler MD #### CP #### [address] [place] [address] Sand Control Worker: Shakeel Graham MD T.pallidum Ab Screen NONREACTIVE Normal NR [facility] Comment on above: Result Comment: T. pallidum antibodies are not detected. There is no serological evidence of infection with T. pallidum (early primary syphilis cannot be excluded). Retest in 2-4 weeks if syphilis is clinically suspect. Performed By: #### H IVCMB, PHEP #### [address] [address] Sand Control Worker: Dom Fowler MD #### CP #### [address] [place], [place] 0705183 Sand Control Worker: Shakeel Graham MD Rubella Ab, IgG 323.1 IU/mL Normal [facility] Comment on above: Result Comment: REFERENCE RANGE: <5.0 NON-REACTIVE (non-immune) 5.0 TO 9.9 EQUIVOCAL >=10.0 REACTIVE (immune) Performed By: #### H IVCMB, PHEP #### [address] [address] Sand Control Worker: Dom Fowler MD #### CP #### [address] [place], [place] [id number] Sand Control Worker: Shakeel Graham MD HCG, Quanton 11-20-2019 HCG, Quant [id number] IU/L High <5 [facility] Comment on above: Result Comment: Non-preg [...] Performed By: #### H IVCMB, PHEP #### [facility] [employer] [address] [place] [address] Sand Control Worker: Dom Fowler MD #### CP #### [facility] [address] [place] [address] Sand Control Worker: Shakeel Graham MD HCG, Quantitative, on 11-20-2019 hCG Quant [id number] High <5 IU/L [place], [place] Comment on above: Non-preg premeno <=5 Postmeno <=8 Male <=3 If HCG results do not concur with clinical observations, additional testing to confirm results is recommended. Elevated results not associated with may be found in patients with other diseases such as tumors of the germ cells (testis, ovaries, etc.), bladder, pancreas, stomach, lungs, and liver. Interpretation and review of laboratory results Abnormal [place], [place] Hepatitis C Antibodyon 11-19 Hepatitis C Ab REACTIVE Abnormal NONREACTIVE [place], [place] Comment on above: The hepatitis C [...] Interpretation and review of laboratory results Abnormal [place], [place] TYPE AND SCREENon 0 11-20-2019 ABO/Rh Positive [place], [place] Profileon 0 Abs. Basophil 0.03 k/uL Normal 0.00-0.20 [facility] Comment on above: Performed By: #### H IVCMB, PHEP #### [facility] [employer] [address] [place] [address] Sand Control Worker: Dom Fowler MD #### CP #### [facility] [address] [place] [address] Dr. [place] [address] ( Sand Control Worker: Shakeel Graham MD Abs.Imm.Granulocyte <0.03 Normal 0.00-0.30 [facility] Comment on above: Performed By: #### H IVCMB, PHEP #### [place] [address] Sand Control Worker: Dom Fowler MD #### CP #### [address] [place] [id number] ( Sand Control Worker: Shakeel Graham MD Abs.Neutrophil (Seg) 2.95 k/uL Normal 1.50-8.10 [facility] Comment on above: Performed By: #### H IVCMB, PHEP #### [place] [address] Sand Control Worker: Dom Fowler MD #### CP #### [address] [place] [id number] ( Sand Control Worker: Shakeel Graham MD Basophils/100 WBC (Bld) 1 % Normal 0-2 [facility] Comment on above: Performed By: #### H IVCMB, PHEP #### [place] [address] Sand Control Worker: Dom Fowler MD #### CP #### [facility] [address] [place] [address] [place] [address] Sand Control Worker: Shakeel Graham MD Eosinophils (Bld) [#/Vol] 0.09 10*3/uL Normal 0.00-0.44 [facility] Comment on above: Performed By: #### H IVCMB, PHEP #### [address] [address] Sand Control Worker: Dom Fowler MD #### CP #### [address] [place], [place] 4519483 Sand Control Worker: Shakeel Graham MD Eosinophils/100 WBC (Bld) 2 % Normal 1-4 [facility] Comment on above: Performed By: #### H IVCMB, PHEP #### [address] [address] Sand Control Worker: Dom Fowler MD #### CP #### [address] [place], [place] 1584183 Sand Control Worker: Shakeel Graham MD Erythrocyte distribution width (RBC) [Ratio] 14.0 % Normal 11.8-14.4 [facility] Comment on above: Performed By: #### H IVCMB, PHEP #### [address] [id number] Sand Control Worker: Dom Fowler MD #### CP #### [address] [place], [place] [id number] Sand Control Worker: Shakeel Graham MD Hematocrit (Bld) [Volume fraction] 37.7 % Normal 36.3-47.1 [facility] Comment on above: Performed By: #### H IVCMB, PHEP #### [address] [address] Sand Control Worker: Dom Fowler MD #### CP #### [address] [place], [place] [id number] Sand Control Worker: Shakeel Graham MD Hemoglobin (Bld) [Mass/Vol] 11.8 g/dL Low 11.9-15.1 [facility] Comment on above: Performed By: #### H IVCMB, PHEP #### [address] [address] Sand Control Worker: Dom Fowler MD #### CP #### [address] [place] [id number] Sand Control Worker: Shakeel Graham MD Immature granulocytes (Bld) [#/Vol] 0 % Normal 0 [facility] Comment on above: Performed By: #### H IVCMB, PHEP #### [address] [address] Sand Control Worker: Dom Fowler MD #### CP #### [facility] [address] [place] [id number] Sand Control Worker: Shakeel Graham MD Lymphocytes (Bld) [#/Vol] 1.50 10*3/uL Normal 1.10-3.70 [facility] Comment on above: Performed By: #### H IVCMB, PHEP #### [address] [address] Sand Control Worker: Dom Fowler MD #### CP #### [facility] [address] [place] [address] [place] [address]83 Sand Control Worker: Shakeel Graham MD Lymphocytes/100 WBC (Bld) 30 % Normal 24-43 [facility] Comment on above: Performed By: #### H IVCMB, PHEP #### [address] [address] Sand Control Worker: Dom Fowler MD #### CP #### [address] [place] [id number] Sand Control Worker: Shakeel Graham MD MCH (RBC) [Entitic mass] 26.5 pg Normal 25.2-33.5 [facility] Comment on above: Performed By: #### H IVCMB, PHEP #### [address] [address] Sand Control Worker: Dom Fowler MD #### CP #### [facility] [address] [place] [phone] Sand Control Worker: Shakeel Graham MD MCHC (RBC) [Mass/Vol] 31.3 g/dL Normal 28.4-34.8 [facility] Comment on above: Performed By: #### H IVCMB, PHEP #### [address] [address] Sand Control Worker: Dom Fowler MD #### CP #### [address] [place] [phone] Sand Control Worker: Shakeel Graham MD MCV (RBC) [Entitic vol] 84.5 fL Normal 82.6-102.9 [facility] Comment on above: Performed By: #### H IVCMB, PHEP #### [address] [address] Sand Control Worker: Dom Fowler MD #### CP #### [address] [place] [phone] Sand Control Worker: Shakeel Graham MD Monocytes (Bld) [#/Vol] 0.37 10*3/uL Normal 0.10-1.20 [facility] Comment on above: Performed By: #### H IVCMB, PHEP #### [address] [address] Sand Control Worker: Dom Fowler MD #### CP #### [address] [place] [phone] Sand Control Worker: Shakeel Graham MD Monocytes/100 WBC (Bld) 8 % Normal 3-12 [facility] Comment on above: Performed By: #### H IVCMB, PHEP #### [address] [address] Sand Control Worker: Dom Fowler MD #### CP #### [address] [place] [address] Sand Control Worker: Shakeel Graham MD Neutrophil (Seg) 59 % Normal 36-65 [facility] Comment on above: Performed By: #### H IVCMB, PHEP #### [place] [address] [place] [address] Sand Control Worker: Dom Fowler MD #### CP #### [facility] [address] [place], [place] [address] Sand Control Worker: Shakeel Graham MD NRBC Automated 0.0 per 100 WBC Normal 0.0 [facility] Comment on above: Performed By: #### H IVCMB, PHEP #### [address] [address] Sand Control Worker: Dom Fowler MD #### CP #### [facility] [address] [place] [id number] Sand Control Worker: Shakeel Graham MD Platelet mean volume (Bld) [Entitic vol] 11.2 fL Normal 8.1-13.5 [facility] Comment on above: Performed By: #### H IVCMB, PHEP #### [address] [address] Sand Control Worker: Dom Fowler MD #### CP #### [facility] [address] [place] [address] [place] [phone] Sand Control Worker: Shakeel Graham MD Platelets (Bld) [#/Vol] 254 10*3/uL Normal 138-453 [facility] Comment on above: Performed By: #### H IVCMB, PHEP #### [address] [address] Sand Control Worker: Dom Fowler MD #### CP #### [facility] [address] [place] [address] [place], [place] 5635583 Sand Control Worker: Shakeel Graham MD RBC (Bld) [#/Vol] 4.46 10*6/uL Normal 3.95-5.11 [facility] Comment on above: Performed By: #### H IVCMB, PHEP #### [address] [address] Sand Control Worker: Dom Fowler MD #### CP #### [facility] [address] [place] [address] [place] [address] Sand Control Worker: Shakeel Graham MD WBC (Bld) [#/Vol] 5.0 10*3/uL Normal 3.5-11.3 [facility] Comment on above: Performed By: #### H IVCMB, PHEP #### [address] [address] Sand Control Worker: Dom Fowler MD #### CP #### [address] [place] [address] Sand Control Worker: Shakeel Graham MD Auto Diff Performed NOT REPORTED Normal [facility] Comment on above: Performed By: #### H IVCMB, PHEP #### [address] [address] Sand Control Worker: Dom Fowler MD #### CP #### [address] [place] [address] Sand Control Worker: Shakeel Graham MD Platelets (Bld) [#/Vol] NOT REPORTED Normal [facility] Comment on above: Performed By: #### H IVCMB, PHEP #### [address] [address] Sand Control Worker: Dom Fowler MD #### CP #### [address] [place] [id number] Sand Control Worker: Shakeel Graham MD RBC morphology finding Nom (Bld) NOT REPORTED Normal [facility] Comment on above: Performed By: #### H IVCMB, PHEP #### [address] [address] Sand Control Worker: Dom Fowler MD #### CP #### [address] [place] [address] Sand Control Worker: Shakeel Graham MD WBC Morphology NOT REPORTED Normal [facility] Comment on above: Performed By: #### H IVCMB, PHEP #### [address] [id number] Sand Control Worker: Dom Fowler MD #### CP #### [address] [place] [id number] Sand Control Worker: Shakeel Graham MD Type + Scrnon 11-19 Type + Scrn Negative Normal [facility] Comment on above: Performed By: #### H IVCMB, PHEP #### [address] [address] Sand Control Worker: Dom Fowler MD #### CP #### [address] [place] [id number] Sand Control Worker: Shakeel Graham MD Toxicology [facility], [facility] Amphetamine(s),Ur Negative Normal NEG [facility] Comment on above: Performed By: #### H IVCMB, PHEP #### [address] [address] Sand Control Worker: Dom Fowler MD #### CP #### [address] [place], [place] [id number] Sand Control Worker: Shakeel Graham MD Barbiturate(s),Ur Negative Normal NEG [facility] Comment on above: Performed By: #### H IVCMB, PHEP #### [address] [address] Sand Control Worker: Dom Fowler MD #### CP #### [address] [place] [address] Sand Control Worker: Shakeel Graham MD Benzodiazepine(s) Negative Normal NEG [facility] Comment on above: Performed By: #### H IVCMB, PHEP #### [facility] [address] [place] [address] Sand Control Worker: Dom Fowler MD #### CP #### [facility] [address] [place] [address] Dr[address] [place], [place] [id number] Sand Control Worker: Shakeel Graham MD Buprenorphrine, Ur Negative Normal NEG [facility] Comment on above: Performed By: #### H IVCMB, PHEP #### [address] [address] Sand Control Worker: Dom Fowler MD #### CP #### [facility] [address] [place] [address] [place] [address] Sand Control Worker: Shakeel Graham MD Cannabinoid(s),Ur Negative Normal NEG [facility] Comment on above: Performed By: #### H IVCMB, PHEP #### [address] [address] Sand Control Worker: Dom Fowler MD #### CP #### [facility] [address] [place] [address] Dr[place] [phone] Sand Control Worker: Shakeel Graham MD Cocaine Metabolite Negative Normal [facility] Comment on above: Performed By: #### H IVCMB, PHEP #### [address] [address] Sand Control Worker: Dom Fowler MD #### CP #### [facility] [address] [place] [address] [place], [place] [id number] Sand Control Worker: Shakeel Graham MD Methadone Ql (U) Negative Normal NEG [facility] Comment on above: Performed By: #### H IVCMB, PHEP #### [address] [address] Sand Control Worker: Dom Fowler MD #### CP #### [facility] [address] [place] [address] Dr. [place], [place] [id number] Sand Control Worker: Shakeel Graham MD Methamphetamine, Ur Negative Normal NEG [facility] Comment on above: Performed By: #### H IVCMB, PHEP #### [facility] [address] [place] [address] Sand Control Worker: Dom Fowler MD #### CP #### [address] [place], [place] [phone] Sand Control Worker: Shakeel Graham MD Opiate(s), Ur Negative Normal NEG [facility] Comment on above: Performed By: #### H IVCMB, PHEP #### [address] [address] Sand Control Worker: Dom Fowler MD #### CP #### [address] [place], [place] [id number] Sand Control Worker: Shakeel Graham MD Oxycodone, Urine Negative Normal NEG [facility] Comment on above: Performed By: #### H IVCMB, PHEP #### [facility] [address] [place] [address] Sand Control Worker: Dom Fowler MD #### CP #### [address] [place], [place] [phone] Sand Control Worker: Shakeel Graham MD Phencyclidine, Ur Negative Normal NEG [facility] Comment on above: Performed By: #### H IVCMB, PHEP #### [address] [address] Sand Control Worker: Dom Fowler MD #### CP #### [address] [place], [place] [phone] Sand Control Worker: Shakeel Graham MD Propoxyphene,Urine Negative Normal NEG [facility] Comment on above: Performed By: #### H IVCMB, PHEP #### [address] [address] Sand Control Worker: Dom Fowler MD #### CP #### [facility] [address] [place] [address] [place] [address] Sand Control Worker: Shakeel Graham MD Tricyclic antidepressants Screen Ql (U) Negative Normal NEG [facility] Comment on above: Result Comment: Drug screen results are to be used for medical purposes only. All positive results are unconfirmed. Testing for employment or legal uses should be sent to a reference laboratory for confirmation. Performed By: #### H IVCMB, PHEP #### [address] [address] Sand Control Worker: Dom Fowler MD #### CP #### [address] [place], [place] [id number] Sand Control Worker: Shakeel Graham MD Interpretive Info NOT REPORTED Normal [facility] Comment on above: Performed By: #### H IVCMB, PHEP #### [address] [address] Sand Control Worker: Dom Fowler MD #### CP #### [address] [place], [place] [phone] Sand Control Worker: Shakeel Graham MD MDMA, Urine NOT REPORTED Normal NEG [facility] Comment on above: Performed By: #### H IVCMB, PHEP #### [address] [address] Sand Control Worker: Dom Fowler MD #### CP #### [facility] [address] [place] [address] Dr. [place], [place] [phone] Sand Control Worker: Shakeel Graham MD Urine Drug Screen, Magda grieron 11-20-2019 Amphetamine Screen, Ur Negative NEGATIVE [facility] [place] Barbiturate Screen, Ur Negative NEGATIVE [facility] [place] Benzodiazepine Screen, Urine Negative NEGATIVE [facility] [place] Buprenorphine Urine Negative NEGATIVE [facility] [place] Cannabinoid Scrn, Ur Negative NEGATIVE [facility] [place] Cocaine Metabolite, Urine Negative NEGATIVE [facility] [place] MDMA, Urine NOT REPORTED NEGATIVE [facility] [place] Methadone Screen, Urine Negative NEGATIVE [facility] [place] Methamphetamine, Urine Negative NEGATIVE [facility] [place] Opiates, Urine Negative NEGATIVE [facility] [place] Oxycodone Screen, Ur Negative NEGATIVE [facility] [place] Phencyclidine, Urine Negative NEGATIVE [facility] [place] Propoxyphene, Urine Negative NEGATIVE [facility] [place] Test Information NOT REPORTED [facility] [place] Tricyclic Antidepressants, Urine Negative NEGATIVE [facility] [place] Comment on above: Drug screen results are to be used for medical purposes only. All positive results are unconfirmed. Testing for employment or legal uses should be sent to a reference laboratory for confirmation. Chlamydia/GC DNA, Uron 06-20 Chlamydia Probe, Ur Negative Normal NEG [facility] Comment on above: Result Comment: CHLA [...] U [facility] #### [place] [place] [address] Sand Control Worker: Dom Fowler MD Gonorrhea Probe, Ur Negative Normal NEG [facility] Comment on above: Result Comment: NEIS [...] target. Performed By: #### U CGP #### [address] [address] Sand Control Worker: Dom Fowler MD Cult,Urineon 06-20-2019 Cult,Urine Specimen Description .CLEAN CATCH URINE Special Requests NOT REPORTED Culture NO SIGNIFICANT GROWTH Report Status FINAL 06/20/2019 Normal [facility] Comment on above: Performed By: #### H IVCMB, PHEP #### [address] [address] Sand Control Worker: Dom Fowler MD #### CP #### [facility] [address] [place] [address] Sand Control Worker: Shakeel Graham MD HIV Ag/Abon 06-20-2019 HIV Ag/Ab NONREACTIVE Normal [facility] Comment on above: Result Comment: No l aboratory evidence of HIV infection. If acute HIV infection is suspected, consider testing for HIV-1 RNA. Performed By: #### A HCV, HIVCMB #### [address] [address] Sand Control Worker: Dom Fowler MD Hep C Abon 06-20-2019 Hep C Ab REACTIVE Abnormal [facility] Comment on [...] Performed By: #### A HCV, HIVCMB #### [address] [address] Sand Control Worker: Dom Fowler MD Profileon 9 T.pallidum Ab Screen NONREACTIVE Normal [facility] Comment on above: Result Comment: T. pallidum antibodies are not detected. There is no serological evidence of infection with T. pallidum (early primary syphilis cannot be excluded). Retest in 2-4 weeks if syphilis is clinically suspect. Performed By: #### P RENAT #### [address] [place] [address] Sand Control Worker: Dom Fowelr MD [facility] [address] [place] [address] Dr. [place], [place] [id number] Sand Control Worker: Shakeel Graham MD Hep B Surf Ag NONREACTIVE Normal NR [facility] Comment on above: Performed By: #### P RENAT #### [address] [address] Sand Control Worker: Dom Fowler MD [address] [place] [phone] Sand Control Worker: Shakeel Graham MD Rubella Ab, IgG 286.1 IU/mL Normal [facility] Comment on above: Result Comment: REFERENCE RANGE: <5.0 NON-REACTIVE (non-immune) 5.0 TO 9.9 EQUIVOCAL >=10.0 REACTIVE (immune) Performed By: #### P RENAT #### [address] [address] Sand Control Worker: Dom Fowler MD [address] [place], [facility]83 Sand Control Worker: Shakeel Graham MD HCG, Quanton 06-19-2019 HCG, Quant [id number] IU/L High <5 [facility] Comment on above: Result Comment: Non-preg [...] liver. Performed By: #### B HCG #### [facility] [address] [place] [address] [place] [address] Sand Control Worker: Shakeel Graham MD HCG, Quantitative, on 06-19-2019 hCG Quant [id number] High <5 IU/L [place], [place] Comment on above: Non-preg premeno <=5 Postmeno <=8 Male <=3 If HCG results do not concur with clinical observations, additional testing to confirm results is recommended. Elevated results not associated with may be found in patients with other diseases such as tumors of the germ cells (testis, ovaries, etc.), bladder, pancreas, stomach, lungs, and liver. Interpretation and review of laboratory results Abnormal [place], [place] HIV Screenon 06-19-2019 HIV Ag/Ab NONREACTIVE NONREACTIVE [place], [place] Comment on above: No laboratory eviden ce of HIV infection. If acute HIV infection is suspected, consider testing for HIV-1 RNA. Hepatitis C Antibodyon 06-19 Hepatitis C Ab REACTIVE [facility] [place] [place] Comment on above: The hepatitis C [...] Interpretation and review of laboratory results Abnormal [place] PROFILE Ion 019 Basophils (Bld) [#/Vol] 10*3/uL [place] Basophils/100 WBC (Bld) 1 % 0 - 2 % [place] Differential Type NOT REPORTED [place] Eosinophils (Bld) [#/Vol] 0.09 10*3/uL [place] Eosinophils/100 WBC (Bld) 2 % 1 - 4 % [place] Erythrocyte distribution width (RBC) [Ratio] 15.7 % High 11.8 - 14.4 % [place] Hematocrit (Bld) [Volume fraction] 36.5 % 36.3 - 47.1 % [place] Hemoglobin (Bld) [Mass/Vol] 11.2 g/dL Low 11.9 - 15.1 g/dL [place] Hepatitis B Surface Ag NONREACTIVE NONREACTIVE [place] Immature granulocytes (Bld) [#/Vol] 0 % 0 [place] Immature granulocytes (Bld) [#/Vol] 10*3/uL [place] Interpretation and review of laboratory results Abnormal [place] Lymphocytes (Bld) [#/Vol] 1.98 10*3/uL [place] Lymphocytes/100 WBC (Bld) 46 % High 24 - 43 % [place] MCH (RBC) [Entitic mass] 25.6 pg 25.2 - 33.5 pg [place] MCHC (RBC) [Mass/Vol] 30.7 g/dL 28.4 - 34.8 g/dL [place] MCV (RBC) [Entitic vol] 83.3 fL 82.6 - 102.9 fL [place] Monocytes (Bld) [#/Vol] 0.37 10*3/uL [place] Monocytes/100 WBC (Bld) 9 % 3 - 12 % [place] Platelet mean volume (Bld) [Entitic vol] 11.6 fL 8.1 - 13.5 fL [place], [place] Platelets (Bld) [#/Vol] NOT REPORTED [place] Platelets (Bld) [#/Vol] 196 10*3/uL [place] RBC (Bld) [#/Vol] 4.38 10*6/uL 3.95 - 5.1 1 m/uL [place] RBC morphology finding Nom (Bld) NOT REPORTED [place] Rubella virus IgG Ql (S) 286.1 IU/mL [place] Comment on above: REFERENCE RANGE: <5.0 NON-REACTIVE (non-immune) 5.0 TO 9.9 EQUIVOCAL >=10.0 REACTIVE (immune) Segmented neutrophils/100 WBC (Bld) 42 % 36 - 65 % [place] Segs Absolute 1.75 [place] T. pallidum, IgG NONREACTIVE NONREACTIVE [place] Comment on above: T. pallidum antibodies are not detected. There is no serological evidence of infection with T. pallidum (early primary syphilis cannot be excluded). Retest in 2-4 weeks if syphilis is clinically suspect. WBC (Bld) [#/Vol] 4.2 10*3/uL [place] WBC (Bld) [#/Vol] 0.0 10*3/uL 0.0 per 100 WBC [place], [place] WBC Morphology NOT REPORTED [place], [place] TYPE AND SCREENon 1 ABO/Rh Positive [place], [place] Profileon 9 Abs. Basophil <0.03 Normal 0.00-0.20 [facility] Comment on above: Performed By: #### P RENAT #### [address] [address] Sand Control Worker: Dom Fowler MD [address] [place] [phone] Sand Control Worker: Shakeel Graham MD Abs.Imm.Granulocyte <0.03 Normal 0.00-0.30 [facility] Comment on above: Performed By: #### P RENAT #### [address] [address] Sand Control Worker: Dom Fowler MD [address] [place] [phone] Sand Control Worker: Shakeel Graham MD Abs.Neutrophil (Seg) 1.75 k/uL Normal 1.50-8.10 [facility] Comment on above: Performed By: #### P RENAT #### [address] [address] Sand Control Worker: Dom Fowler MD [address] [place] [phone] Sand Control Worker: Shakeel Graham MD Basophils/100 WBC (Bld) 1 % Normal 0-2 [facility] Comment on above: Performed By: #### P RENAT #### [address] [address] Sand Control Worker: Dom Fowler MD [address] [place] [facility]83 Sand Control Worker: Shakeel Graham MD Eosinophils (Bld) [#/Vol] 0.09 10*3/uL Normal 0.00-0.44 [facility] Comment on above: Performed By: #### P RENAT #### [address] [address] Sand Control Worker: Dom Fowler MD [address] [place] [phone] Sand Control Worker: Shakeel Graham MD Eosinophils/100 WBC (Bld) 2 % Normal 1-4 [facility] Comment on above: Performed By: #### P RENAT #### [address] [address] Sand Control Worker: Dom Fowler MD [address] [place] [phone] Sand Control Worker: Shakeel Graham MD Erythrocyte distribution width (RBC) [Ratio] 15.7 % High 11.8-14.4 [facility] Comment on above: Performed By: #### P RENAT #### [address] [address] Sand Control Worker: Dom Fowler MD [address] [place] [phone] Sand Control Worker: Shakeel Graham MD Hematocrit (Bld) [Volume fraction] 36.5 % Normal 36.3-47.1 [facility] Comment on above: Performed By: #### P RENAT #### [address] [address] Sand Control Worker: Dom Fowler MD [address] [place] [phone] Sand Control Worker: Shakeel Graham MD Hemoglobin (Bld) [Mass/Vol] 11.2 g/dL Low 11.9-15.1 [facility] Comment on above: Performed By: #### P RENAT #### [address] [place] [address] Sand Control Worker: Dom Fowler MD [facility] [address] [place] [address] Dr. [place] [phone] Sand Control Worker: Shakeel Graham MD Immature granulocytes (Bld) [#/Vol] 0 % Normal 0 [facility] Comment on above: Performed By: #### P RENAT #### [address] [address] Sand Control Worker: Dom Fowler MD [facility] [address] [place] [address] Dr. [place] [phone] Sand Control Worker: Shakeel Graham MD Lymphocytes (Bld) [#/Vol] 1.98 10*3/uL Normal 1.10-3.70 [facility] Comment on above: Performed By: #### P RENAT #### [address] [address] Sand Control Worker: Dom Fowler MD [address] [place] [address] Sand Control Worker: Shakeel Graham MD Lymphocytes/100 WBC (Bld) 46 % High 24-43 [facility] Comment on above: Performed By: #### P RENAT #### [address] [address] Sand Control Worker: Dom Fowler MD [facility] [address] [place] [address] [place] [phone] Sand Control Worker: Shakeel Graham MD MCH (RBC) [Entitic mass] 25.6 pg Normal 25.2-33.5 [facility] Comment on above: Performed By: #### P RENAT #### [address] [address] Sand Control Worker: Dom Fowler MD [address] [place], [place] 1875383 Sand Control Worker: Shakeel Graham MD MCHC (RBC) [Mass/Vol] 30.7 g/dL Normal 28.4-34.8 [facility] Comment on above: Performed By: #### P RENAT #### [address] [address] Sand Control Worker: Dom Fowler MD [address] [place] [phone] Sand Control Worker: Shakeel Graham MD MCV (RBC) [Entitic vol] 83.3 fL Normal 82.6-102.9 [facility] Comment on above: Performed By: #### P RENAT #### [address] [address] Sand Control Worker: Dom Fowler MD [address] [place] [phone] Sand Control Worker: Shakeel Graham MD Monocytes (Bld) [#/Vol] 0.37 10*3/uL Normal 0.10-1.20 [facility] Comment on above: Performed By: #### P RENAT #### [address] [address] Sand Control Worker: Dom Fowler MD [address] [place] [address] Sand Control Worker: Shakeel Graham MD Monocytes/100 WBC (Bld) 9 % Normal 3-12 [facility] Comment on above: Performed By: #### P RENAT #### [address] [address] Sand Control Worker: Dom Fowler MD [address] [place] [phone] Sand Control Worker: Shakeel Graham MD Neutrophil (Seg) 42 % Normal 36-65 [facility] Comment on above: Performed By: #### P RENAT #### [address] [place] [address] Sand Control Worker: Dom Fowler MD [address] [place] [phone] Sand Control Worker: Shakeel Graham MD NRBC Automated 0.0 per 100 WBC Normal 0.0 [facility] Comment on above: Performed By: #### P RENAT #### [address] [address] Sand Control Worker: Dom Fowler MD [address] [place] [facility]83 Sand Control Worker: Shakeel Graham MD Platelet mean volume (Bld) [Entitic vol] 11.6 fL Normal 8.1-13.5 [facility] Comment on above: Performed By: #### P RENAT #### [address] [address] Sand Control Worker: Dom Fowler MD [address] [place] [phone] Sand Control Worker: Shakeel Graham MD Platelets (Bld) [#/Vol] 196 10*3/uL Normal 138-453 [facility] Comment on above: Performed By: #### P RENAT #### [address] [address] Sand Control Worker: Dom Fowler MD [address] [place] [phone] Sand Control Worker: Shakeel Graham MD RBC (Bld) [#/Vol] 4.38 10*6/uL Normal 3.95-5.11 [facility] Comment on above: Performed By: #### P RENAT #### [address] [address] Sand Control Worker: Dom Fowler MD [address] [place] [address] Sand Control Worker: Shakeel Graham MD WBC (Bld) [#/Vol] 4.2 10*3/uL Normal 3.5-11.3 [facility] Comment on above: Performed By: #### P RENAT #### [address] [address] Sand Control Worker: Dom Fowler MD [address] [place] [address] Sand Control Worker: Shakeel Graham MD Auto Diff Performed NOT REPORTED Normal [facility] Comment on above: Performed By: #### P RENAT #### [address] [address] Sand Control Worker: Dom Fowler MD [address] [place] [address] Sand Control Worker: Shakeel Graham MD Platelets (Bld) [#/Vol] NOT REPORTED Normal [facility] Comment on above: Performed By: #### P RENAT #### [address] [address] Sand Control Worker: Dom Fowler MD [address] [place] [address] Sand Control Worker: Shakeel Graham MD RBC morphology finding Nom (Bld) NOT REPORTED Normal [facility] Comment on above: Performed By: #### P RENAT #### [address] [address] Sand Control Worker: Dom Fowler MD [address] [place] [address] Sand Control Worker: Shakeel Graham MD WBC Morphology NOT REPORTED Normal [facility] Comment on above: Performed By: #### P RENAT #### [address] [address] Sand Control Worker: Dom Fowler MD [address] [place] [phone] Sand Control Worker: Shakeel Graham MD Type + Scrnon 06-19 Type + Scrn Negative [facility] Comment on above: Performed By: #### P RTYS #### [facility] [address] [place], [place] [phone] Sand Control Worker: Shakeel Graham MD Toxicology Scree, Urineon Amphetamine(s),Ur Negative Normal NEG [facility] Comment on above: Performed By: #### C PDAU #### [facility] [address] [place], [place] [phone] Sand Control Worker: Shakeel Graham MD Barbiturate(s),Ur Negative Normal NEG [facility] Comment on above: Performed By: #### C PDAU #### [facility] [address] [place], [facility]83 Sand Control Worker: Shakeel Graham MD Benzodiazepine(s) Negative Normal [facility] Comment on above: Performed By: #### C PDAU #### [facility] [address] [place] [phone] Sand Control Worker: Shakeel Graham MD Buprenorphrine, Ur Negative Normal [facility] Comment on above: Performed By: #### C PDAU #### [facility] [address] [place], [facility]83 Sand Control Worker: Shakeel Graham MD Cannabinoid(s),Ur Negative Normal NEG [facility] Comment on above: Performed By: #### C PDAU #### [facility] [address] [place], [place] [phone] Sand Control Worker: Shakeel Graham MD Cocaine Metabolite Negative Normal [facility] Comment on above: Performed By: #### C PDAU #### [facility] [address] [place], [place] [phone] Sand Control Worker: Shakeel Graham MD Methadone Ql (U) Negative Normal NEG [facility] Comment on above: Performed By: #### C PDAU #### [facility] [address] [place], [place] [id number] Sand Control Worker: Shakeel Graham MD Methamphetamine, Ur Negative Normal NEG [facility] Comment on above: Performed By: #### C PDAU #### [facility] [address] [place], [place] [id number] Sand Control Worker: Shakeel Graham MD Opiate(s), Ur Negative Normal NEG [facility] Comment on above: Performed By: #### C PDAU #### [facility] [address] [place] [address] Sand Control Worker: Shakeel Graham MD Oxycodone, Urine Negative Normal NEG [facility] Comment on above: Performed By: #### C PDAU #### [facility] [address] [place], [place] [id number] Sand Control Worker: Shakeel Graham MD Phencyclidine, Ur Negative Normal [facility] Comment on above: Performed By: #### C PDAU #### [facility] [address] [place], [place] [id number] Sand Control Worker: Shakeel Graham MD Propoxyphene,Urine Negative Normal NEG [facility] Comment on above: Performed By: #### C PDAU #### [facility] [address] [place], [place] [id number] Sand Control Worker: Shakeel Graham MD Tricyclic antidepressants Screen Ql (U) Positive Abnormal NEG [facility] Comment on above: Result Comment: Drug screen results are to be used for medical purposes only. All positive results are unconfirmed. Testing for employment or legal uses should be sent to a reference laboratory for confirmation. Performed By: #### C PDAU #### [facility] [address] [place] [address] Sand Control Worker: Shakeel Graham MD Interpretive Info NOT REPORTED Normal [facility] Comment on above: Performed By: #### C PDAU #### [facility] [address] [place] [address] Sand Control Worker: Shakeel Graham MD MDMA, Urine NOT REPORTED Normal NEG [facility] Comment on above: Performed By: #### C PDAU #### [facility] [address] [place] [address] Sand Control Worker: Shakeel Graham MD Urine Drug Screen, Magda [...] Ag/Abon 05-10-2019 HIV Ag/Ab NONREACTIVE Normal NR [facility] Comment on above: Result Comment: No l aboratory evidence of HIV infection. If acute HIV infection is suspected, consider testing for HIV-1 RNA. Performed By: #### H IVCMB, PHEP #### [facility] [employer] [facility] [place] [address] Sand Control Worker: Dom Fowler MD #### CP #### [facility] [address] [place], [place] [id number] Sand Control Worker: Shakeel Graham MD Hepatitis Acute [facility] 05-10 Hep A Ab,IgM NONREACTIVE Normal NR [facility] Comment on above: Performed By: #### H IVCMB, PHEP #### [address] [address] Sand Control Worker: Dom Fowler MD #### CP #### [address] [place] [address] Sand Control Worker: Shakeel Graham MD Hep B Core Ab,IgM NONREACTIVE Normal [facility] Comment on above: Performed By: #### H IVCMB, PHEP #### [address] [address] Sand Control Worker: Dom Fowler MD #### CP #### [facility] [address] [place] [address] [place] [place], [place] 0201983 Sand Control Worker: Shakeel Graham MD Hep B Surf Ag NONREACTIVE Normal [facility] Comment on above: Performed By: #### H IVCMB, PHEP #### [address] [address] Sand Control Worker: Dom Fowler MD #### CP #### [facility] [address] [place] [address] Dr[address] [place], [place] [id number] Sand Control Worker: Shakeel Graham MD Hep C Ab REACTIVE Abnormal [facility] Comment on [...] Performed By: #### H IVCMB, PHEP #### [address] [place] [place] [address] Sand Control Worker: Dom Fowler MD #### CP #### [facility] [address] [place] [address] [place], [place] [id number] Sand Control Worker: Shakeel Graham MD Comp Metabolic Profon 2018 (cont.) Normal [facility] Comment on above: Result Comment: Aver age GFR for 20-29 years old: 116 mL/min/1.73sq m Chronic Kidney Disease: <60 mL/min/1.73sq m Kidney failure: <15 mL/min/1.73sq m eGFR calculated using average adult body mass. Additional eGFR calculator available at: http://www.Enpirion/multiple_crcl_2011.htm Performed By: #### H IVCMB, PHEP #### [address] [address] Sand Control Worker: Dom Fowler MD #### CP #### [facility] [address] [place] [address] [place], [place] [id number] Sand Control Worker: Shakeel Graham MD Albumin [Mass/Vol] 4.3 g/dL Normal 3.5-5.2 [facility] Comment on above: Performed By: #### H IVCMB, PHEP #### [address] [address] Sand Control Worker: Dom Fowler MD #### CP #### [address] [place], [place] 2943483 Sand Control Worker: Shakeel Graham MD Albumin/Globulin [Mass ratio] 1.4 {ratio} Normal 1.0-2.5 [facility] Comment on above: Performed By: #### H IVCMB, PHEP #### [address] [address] Sand Control Worker: Dom Fowler MD #### CP #### [facility] [address] [place], [place] [id number] Sand Control Worker: Shakeel Graham MD Alkaline Phos 50 U/L Normal 35-104 [facility] Comment on above: Performed By: #### H IVCMB, PHEP #### [address] [address] Sand Control Worker: Dom Fowler MD #### CP #### [facility] [address] [place] [address] Dr. [place], [place] 9034083 Sand Control Worker: Shakeel Graham MD ALT [Catalytic activity/Vol] 9 U/L Normal 5-33 [facility] Comment on above: Performed By: #### H IVCMB, PHEP #### [address] [address] Sand Control Worker: Dom Fowler MD #### CP #### [address] [place], [place] 404[address]483 Sand Control Worker: Shakeel Graham MD Anion gap [Moles/Vol] 8 mmol/L Low 9-17 [facility] Comment on above: Performed By: #### H IVCMB, PHEP #### [address] [address] Sand Control Worker: Dom Fowler MD #### CP #### [address] [place], [place] 4548183 Sand Control Worker: Shakeel Graham MD AST [Catalytic activity/Vol] 15 U/L Normal <32 [facility] Comment on above: Performed By: #### H IVCMB, PHEP #### [address] [address] Sand Control Worker: Dom Fowler MD #### CP #### [address] [place], [place] 8291583 Sand Control Worker: Shakeel Graham MD Bilirubin Ql (U) 0.31 mg/dL Normal 0.3-1.2 [facility] Comment on above: Performed By: #### H IVCMB, PHEP #### [facility] [address] [place] [address] Sand Control Worker: Dom Fowler MD #### CP #### [facility] [address] [place], [place] [id number] Sand Control Worker: Shakeel Graham MD BUN/CRE Ratio 20 Normal 9-20 [facility] Comment on above: Performed By: #### H IVCMB, PHEP #### [address] [address] Sand Control Worker: Dom Fowler MD #### CP #### [facility] [address] [place], [place] 2649783 Sand Control Worker: Shakeel Graham MD Calcium [Mass/Vol] 9.4 mg/dL Normal 8.6-10.4 [facility] Comment on above: Performed By: #### H IVCMB, PHEP #### [address] [address] Sand Control Worker: Dom Fowler MD #### CP #### [facility] [address] [place] [address] Dr. [place], [place] 6951883 Sand Control Worker: Shakeel Graham MD Chloride [Moles/Vol] 102 mmol/L Normal 98-107 [facility] Comment on above: Performed By: #### H IVCMB, PHEP #### [address] [address] Sand Control Worker: Dom Fowler MD #### CP #### [facility] [address] [place], [place] 4560183 Sand Control Worker: Shakeel Graham MD CO2 [Moles/Vol] 28 mmol/L Normal 20-31 [facility] Comment on above: Performed By: #### H IVCMB, PHEP #### [address] [address] Sand Control Worker: Dom Fowler MD #### CP #### [facility] [address] [place], [place] 6866083 Sand Control Worker: Shakeel Graham MD Creatinine [Mass/Vol] 0.92 mg/dL High 0.50-0.90 [facility] Comment on above: Performed By: #### H IVCMB, PHEP #### [address] [address] Sand Control Worker: Dom Fowler MD #### CP #### [address] [place] [address] Sand Control Worker: Shakeel Graham MD GFR, Amer >60 Normal >60 [facility] Comment on above: Performed By: #### H IVCMB, PHEP #### [address] [address] Sand Control Worker: Dom Fowler MD #### CP #### [facility] [address] [place] [address] Dr. [place], [place] [phone] Sand Control Worker: Shakeel Graham MD GFR,non Amer >60 Normal >60 [facility] Comment on above: Performed By: #### H IVCMB, PHEP #### [address] [address] Sand Control Worker: Dom Fowler MD #### CP #### [facility] [address] [place], [place] 8105883 Sand Control Worker: Shakeel Graham MD Glucose [Mass/Vol] 91 mg/dL Normal 70-99 [facility] Comment on above: Performed By: #### H IVCMB, PHEP #### [address] [address] Sand Control Worker: Dom Fowler MD #### CP #### [facility] [address] [place] [address] [place]. [place], [place] 2061383 Sand Control Worker: Shakeel Graham MD Potassium [Moles/Vol] 4.3 mmol/L Normal 3.7-5.3 [facility] Comment on above: Performed By: #### H IVCMB, PHEP #### [address] [address] Sand Control Worker: Dom Fowler MD #### CP #### [address] [place], [place] [address] Sand Control Worker: Shakeel Graham MD Protein [Mass/Vol] 7.4 g/dL Normal 6.4-8.3 [facility] Comment on above: Performed By: #### H IVCMB, PHEP #### [address] [address] Sand Control Worker: Dom Fowler MD #### CP #### [address] [place], [place] 9143683 Sand Control Worker: Shakeel Graham MD Sodium [Moles/Vol] 138 mmol/L Normal 135-144 [facility] Comment on above: Performed By: #### H IVCMB, PHEP #### [address] [address] Sand Control Worker: Dom Fowler MD #### CP #### [address] [place], [place] 0666383 Sand Control Worker: Shakeel Graham MD Staging: Normal [facility] Comment on above: Result Comment: Stag e 1: Some kidney damage normal GFR Stage 2: Mild kidney damage GFR 60-89 Stage 3: Moderate kidney damage GFR 30-59 Stage 4: Severe kidney damage GFR 15-29 Stage 5: Severe kidney damage GFR <15 ESRD - chronic treatment by dialysis or transplant Performed By: #### H IVCMB, PHEP #### [address] [id number] Sand Control Worker: Dom Fowler MD #### CP #### [facility] [address] [place] [address] Sand Control Worker: Shakeel Graham MD Urea nitrogen [Mass/Vol] 18 mg/dL Normal 6-20 [facility] Comment on above: Performed By: #### H IVC, PHEP #### [facility] [address] [place], [place] [phone] Sand Control Worker: Dom Fowler MD #### CP #### [facility] [address] [place] [address] Sand Control Worker: Shakeel Graham MD [facility] Metabolic Pane [facility] 05-09-2019 Albumin [Mass/Vol] 4.3 g/dL 3.5 - 5.2 g/dL [place], [place] Albumin/Globulin [Mass ratio] 1.4 {ratio} [place], [place] ALP [Catalytic activity/Vol] 50 U/L 35 - 104 U/L [place] ALT [Catalytic activity/Vol] 9 U/L 5 - 33 U/L [place] Anion gap [Moles/Vol] 8 mmol/L Low 9 - 17 mmol/L [place] AST [Catalytic activity/Vol] 15 U/L <32 [place] Bilirubin Ql (U) 0.31 mg/dL 0.3 - 1.2 mg/dL [place], [place] Bun/Cre Ratio 20 [place] Calcium [Mass/Vol] 9.4 mg/dL 8.6 - 10. 4 mg/dL [place] Chloride [Moles/Vol] 102 mmol/L 98 - 107 mmol/L [place] CO2 [Moles/Vol] 28 mmol/L 20 - 31 mmol/L [place] Creatinine [Mass/Vol] 0.92 mg/dL High 0.5 - 0.9 mg/dL [place] GFR >60 >60 mL/min [place] GFR Non- >60 >60 mL/min [place] Glucose [Mass/Vol] 91 mg/dL 70 - 99 mg/dL [place] Interpretation and review of laboratory results Abnormal [place] Potassium [Moles/Vol] 4.3 mmol/L 3.7 - 5.3 mmol/L [place] Protein [Mass/Vol] 7.4 g/dL 6.4 - 8.3 g/dL [place], [place] Sodium [Moles/Vol] 138 mmol/L 135 - 144 mmol/L [place] Urea nitrogen [Mass/Vol] 18 mg/dL 6 - 20 mg/dL [place] Hepatitis Panel, Acuteon HAV IgM IA Qn (S) NONREACTIVE NONREACTIVE [place] Hep B Core Ab, IgM NONREACTIVE NONREACTIVE [place], [place] Hepatitis B Surface Ag NONREACTIVE NONREACTIVE [place] Hepatitis C Ab REACTIVE Abnormal NONREACTIVE [place], [place] Comment on above: The hepatitis C [...] Interpretation and review of laboratory results Abnormal [place] Metabolic Panelon 05-09-2019 GFR/1.73 sq M predicted among non-blacks MDRD (S/P/Bld) [Vol rate/Area] [place], [place] Comment on above: Average GFR for 20-2 9 years old: 116 mL/min/1.73sq m Chronic Kidney Disease: <60 mL/min/1.73sq m Kidney failure: <15 mL/min/1.73sq m eGFR calculated using average adult body mass. Additional eGFR calculator available at: http://www.Enpirion/multiple_crcl_2012.htm Stage 1: Some kidney damage normal GFR Stage 2: Mild kidney damage GFR 60-89 Stage 3: Moderate kidney damage GFR 30-59 Stage 4: Severe kidney damage GFR 15-29 Stage 5: Severe kidney damage GFR <15 ESRD - chronic treatment by dialysis or transplant Drug Scr, Abuse, Uron 2017 Amphetamine(s),Ur Positive Abnormal NEG [facility] Comment on above: Result Comment: (Pos itive cutoff 1000 ng/mL) Performed By: #### D AU ####[address] [address] Barbiturate(s),Ur Negative Normal NEG [facility] Comment on above: Result Comment: (Pos itive cutoff 200 ng/mL) Performed By: #### D AU ####[address] [address] Base excess Negative Normal NEG [facility] Comment on above: Result Comment: (Pos itive cutoff 300 ng/mL) Performed By: #### D AU ####[address] [address] Benzodiazepine(s) Negative Normal NEG [facility] Comment on above: Result Comment: (Pos itive cutoff 200 ng/mL) Performed By: #### D AU ####[address] [address] Cannabinoid(s),Ur Negative Normal NEG [facility] Comment on above: Result Comment: (Pos itive cutoff 50 ng/mL) Performed By: #### D AU ####[address] [address] Interpretive Info Assay provides medical screening only. The absence of expected drug(s) and/or Normal [facility] Comment on above: Result Comment: meta bolite(s) may indicate diluted or adulterated urine, limitations of testing or timing of collection.Testing for legal purposes should be confirmed by another method. To request confirmation of test result, please call the lab within 7 days of sample submission.Performed at [address] [address] Performed By: #### D AU ####[address] [address] Opiate(s), Ur Negative Normal NEG [facility] Comment on above: Result Comment: (Pos itive cutoff 300 ng/mL) Performed By: #### D AU ####[address] [address] Oxycodone, Urine Negative Normal NEG [facility] Comment on above: Result Comment: (Pos itive cutoff 100 ng/mL) Performed By: #### D AU ####[address] [address] Phencyclidine, Ur Negative Normal NEG [facility] Comment on above: Result Comment: (Pos itive cutoff 25 ng/mL) Performed By: #### D AU ####[address] [address] Urine, methadone presence Negative Normal NEG [facility] Comment on above: Result Comment: (Pos itive cutoff 300 ng/mL) Performed By: #### D AU ####[address] [address] Buprenorphrine, Ur NOT REPORTED Normal NEG [facility] Comment on above: Performed By: #### D AU ####[address] [place] [address] MDMA, Urine NOT REPORTED Normal NEG [facility] Comment on above: Performed By: #### D AU ####[address] [place] [address] Methamphetamine, Ur NOT REPORTED Normal NEG [facility] Comment on above: Performed By: #### D AU ####[address] [address] Propoxyphene,Urine NOT REPORTED Normal NEG [facility] Comment on above: Performed By: #### D AU ####[facility] [place] [address] Urine, tricyclic antidepressants NOT REPORTED Normal NEG [facility] Comment on above: Performed By: #### D AU ####[address] [address] Lipid Profileon 11-05-2017 Cholesterol 137 mg/dL Normal <200 [facility] Comment on above: Result Comment: Chol esterol Guidelines: <200 Desirable 200-240 Borderline >240 Undesirable Performed By: #### L IPR ####[address] [address] Cholesterol to HDL Ratio 4.3 {ratio} Normal <5 [facility] Comment on above: Performed By: #### L IPR ####[facility] [place] [address] HDL Cholesterol 32 mg/dL Low >40 [facility] Comment on above: Result Comment: HDL Guidelines: <40 Undesirable 40-59 Borderline >59 Desirable Performed By: #### L IPR ####[address] [address] LDL Cholesterol 82 mg/dL Normal 0-130 [facility] Comment on above: Result Comment: LDL Guidelines: <100 Desirable 100-129 Near to/above Desirable 130-159 Borderline >159 UndesirableDirect (measured) LDL and calculated LDL are not interchangeable tests. Performed By: #### L IPR ####[address] [address] Triglyceride 113 mg/dL Normal <150 [facility] Comment on above: Result Comment: Trig lyceride Guidelines: <150 Desirable 150- 199 Borderline 200-499 High >499 Very high Based on AHA Guidelines for fasting triglyceride, June 2012.Performed at [facility] [address] [place] [address] Performed By: #### L IPR ####[facility] [place] [address] Cholesterol in VLDL mass conc NOT REPORTED Normal 10-16 [facility] Comment on above: Performed By: #### L IPR ####[facility] [place] [address] Encounters Encounter Date Encounter Type Care Provider Facility Start: 09-05-2023 End: 09-05-2023 ambulatory LUIS FELIPE HALL Not Available Start: 08-21-2023 End: 08-21-2023 ambulatory YOUSIF APARICIO Not Available Start: 08-01-2023 End: 08-01-2023 ambulatory LUIS FELIPE HALL Not Available Start: 12-21-2022 End: 12-21-2022 ambulatory IVAN CAMEJO . Facility:[facility] Start: 11-29-2022 End: 11-29-[address] RODO MENCHACA Facility:[facility] Start: 10-25-2022 [facility] Facility:[facility] Start: 10-11-2022 End: 10-11-[address] CHRISTINE SÁNCHEZ Facility:[facility] Start: 09-12-2022 End: 09-13-[address] YOUSIF APARICIO . Facility:[facility] Start: 08-19-2022 Encounter for preprocedural laboratory examination DR YOUSIF APARICIO . [facility] Start: 08-18-2022 End: 08-18-[address] YOUSIF APARICIO . Facility:[facility] Start: 08-16-2022 End: 08-17-[address] YOUSIF APARICIO . Facility:[facility] Start: 08-16-2022 End: 08-17-2022 Encounter for preprocedural laboratory examination DR YOUSIF APARICIO . Facility:[facility] Start: 08-14-2022 End: 08-15-2022 [facility] Facility:[facility] Start: 07-27-2022 End: 07-28-[address] YOUSIF APARICIO . Facility:[facility] Start: 07-09-2022 End: 07-09-[address] ELISEO HARDING Facility: Start: 12-12-2021 Telephone encounter King zee MD Work Phone: Hematology/Oncology Comment on above: Lab Orders Start: 10-28-2021 Chart abstracting King fleming MD Work Phone: Hematology/Oncology Start: 04-26-2020 End: 04-27-2020 Patient encounter procedure ANTHONY PABON [facility] Start: 04-26-2020 End: 04-26-2020 Subsequent hospital visit by physician Rochelle ALFRED Laboratory Start: 03-16-2020 End: 03-17-2020 Emergency department patient visit [facility] Facility:[facility] Start: 11-20-2019 End: 11-21-2019 Patient encounter procedure [facility] Start: 11-20-2019 End: 11-20-2019 Subsequent hospital visit by physician Rochelle ALFRED Laboratory Comment on above: History of miscarria ge, currently ; Amenorrhea; Positive urine test; Encounter for supervision of normal in first trimester, unspecified ; Spotting in early Start: 06-19-2019 End: 06-20-2019 Patient encounter procedure [facility] Start: 06-19-2019 End: 06-19-2019 Subsequent hospital visit by physician Rochelle ALFRED Laboratory Comment on above: Amenorrhea; Positive urine test; Encounter for supervision of normal in first trimester, unspecified ; Spotting in early Start: 05-09-2019 End: 05-10-2019 Patient encounter procedure KADI DIXON [facility] Start: 05-09-2019 End: 05-09-2019 Subsequent hospital visit by physician Rochelle ALFRED Laboratory Start: 11-05-2017 End: 11-07-2017 Evaluation and management of inpatient ANGELO SPICER [facility] Procedures Date Procedure Procedure Detail Performing Clinician Start: 04-26-2020 Acute hepatitis panel D AWN DESTINY Start: 04-26-2020 Antibody hiv-1&hiv-2 single result KADI DESTINY Start: 04-26-2020 Blood count complete automated KADI DESTINY Start: 04-26-2020 Comprehensive metabo lic panel KADI DESTINY Start: 04-26-2020 Gonadotropin chorion ic qualitative KADI DESTINY Start: 04-26-2020 Iadna hepatitis c qu ant & reverse supervisor inspection department KADI DESTINY Start: 04-26-2020 Acute hepatitis panel [...] SPICER Start: 11-05-2017 Lipid panel ANGELO BARRIOS PROMOTIONS COORDINATOR Start: 11-05-2017 DIET GENERAL ANGELO PROMOTIONS COORDINATOR Start: 11-05-2017 FULL CODE ANGELO PROMOTIONS COORDINATOR Start: 11-05-2017 IP CONSULT TO HISTOR [...] deficiency anemia type Expected: 12/12/2021, Expires: 02/11/2022 [facility] Work Phone: Comment on above: Expected: 12/12/2021 , Expires: 02/11/2022 Start: 05-18-2021 Influenza vaccination INFLUENZA (#1) [facility] Start: 06-26-2020 Cervical cancer screen [facility]ervical [facility] [place] Comment on above: Postponed from 01/11 (Not Indicated) Start: 06-26-2020 Screening for malign ant neoplasm of cervix Cervical cancer [place] Comment on above: Postponed from 01/11 (Not Indicated) Start: 05-18-2020 Influenza vaccination Flu vaccine (# 1) [place] Start: 11-21-2019 End: 11-21-2019 Ancillary Procedure 11/21/2019 Ancillary Procedure Obstetrics and Gynecology [facility] Start: 06-26-2019 End: 06-26-2019 Routine 06/26/2019 Routine Obstetrics and Gynecology Georgette Leung APRN - [facility]RI[facility] [address] [place] [address] [phone] [facility] D[facility] 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 Start: 05-18-2019 Influenza vaccination Flu vaccine (# 1) [place] Start: 2015 Cervical cancer screen Cervical canc er screen [place] Start: 2015 PAP TESTING PAP TESTING [facility] Start: 2013 DTaP/Tdap/Td vaccine (1 - Tdap) DTaP/Tdap/Td vaccine (1 - Tdap) [place] Start: 2013 Urine microalbumin profile DTAP,TDAP,TD (1 - Tdap) [facility] Start: 01-12-2012 HEPATITIS C SCREENING HEPATITIS C SC REENING [facility] Start: 01-12-2012 HIV SCREENING HIV SCREENING [facility] Start: 2009 HPV vaccine (1 - Fem larissa 3-dose series) HPV vaccine (1 - Female 3-dose series) [place] Start: 2007 Varicella Vaccine (1 of 2 - 13+ 2-dose series) Varicella Vaccine (1 of 2 - 13+ 2-dose series) [place] Start: 2006 Adult depression screening assessment DEPRESSION SCREENING [facility] Start: 2005 DTaP/Tdap/Td vaccine (1 - Tdap) DTaP/Tdap/Td vaccine (1 - Tdap) [place] Start: 2005 HPV vaccine (1 - 2-d ose series) HPV vaccine (1 - 2-dose series) [place] Start: 2005 HPV vaccine (1 - Fem larissa 2-dose series) HPV vaccine (1 - Female 2-dose series) [place] Start: 01-12-2000 Pneumococcal 0-64 ye ars Vaccine (1 of 1 - PPSV23) Pneumococcal 0-64 years Vaccine (1 of 1 - PPSV23) [place], [place] Start: 1999 COVID-19 VACCINE (1) COVID-19 VACCIN E (1) [facility] Start: 1995 Varicella vaccine (1 of 2 - 2-dose childhood series) Varicella vaccine (1 of 2 - 2-dose childhood series) [place], [place] End: 11-20-2019 Bacteria identified Cx Nom (U) Urine Culture Microbiology Routine Amenorrhea Positive urine test Encounter for supervision of normal in first trimester, unspecified 1 Occurrences starting 11/20/2019 until 11/20/2019 [place] Comment on above: 1 Occurrences starti ng 11/20/2019 until 11/20/2019 Bacteria identified Cx Nom (U) [place] End: 06-19-2019 Bacteria identified Cx Nom (U) Urine Culture Microbiology Routine Amenorrhea Positive urine test Encounter for supervision of normal in first trimester, unspecified 1 Occurrences starting 06/19/2019 until 06/19/2019 [place] Comment on above: 1 Occurrences starti ng 06/19/2019 until 06/19/2019 End: 11-20-2019 C.trachomatis N.gonorrhoeae DNA, Urine C.trachomatis N.gonorrhoeae DNA, Urine Microbiology Routine Amenorrhea Positive urine test Encounter for supervision of normal in first trimester, unspecified 1 Occurrences starting 11/20/2019 until 11/20/2019 [place] Comment on above: 1 Occurrences starti ng 11/20/2019 until 11/20/2019 C.trachomatis N.gonorrhoeae DNA, Urine [place] End: 06-19-2019 C.trachomatis N.gonorrhoeae DNA, Urine C.trachomatis N.gonorrhoeae DNA, Urine Microbiology Routine Amenorrhea Positive urine test Encounter for supervision of normal in first trimester, unspecified 1 Occurrences starting 06/19/2019 until 06/19/2019 [place] Comment on above: 1 Occurrences starti ng 06/19/2019 until 06/19/2019 End: 04-26-2020 Hepatitis C RNA, quantitative, PCR Hepatitis C RNA, quantitative, PCR Lab Routine Once for 1 Occurrences starting 04/26/2020 until 04/26/2020 [place] Comment on above: Once for 1 Occurrenc es starting 04/26/2020 until 04/26/2020 Hepatitis C RNA, quantitative, PCR Hepatitis C RNA, quantitative, PCR Lab Routine 04/26/2020 7:30 AM EDT [place] End: 05-09-2019 HIV Screen HIV Screen Lab Routine Once for 1 Occurrences starting 05/09/2019 until 05/09/2019 [place] Comment on above: Once for 1 Occurrenc es starting 05/09/2019 until 05/09/2019 HIV Screen HIV Screen [facility] Routine Amenorrhea Positive urine test Encounter for supervision of normal in first trimester, unspecified 11/20/2019 12:26 PM EST [facility] Payers Date Payer Category Payer Medicaid [place] [employer] [place] [employer] [id number] 2020-Present [phone] [address] [place], [place] [id number] Medicaid [id number] 2020 Unknown 2016 Unknown REPLACED BY [facility] xxxxxxxxxxxx 2016-Present [phone] [address] [place] [id number] xxxxxxxxxxxx [id number] 1994 Unknown [id number] 2.840.1.042626.3.579.2.196 1994 Unknown [id number] 2.16.840.1.099749.3.579.2.173 1994 Unknown [id number] 2.16.840.1.077426.3.579.2.173 1994 Unknown [id number] 2.16.840.1.190118.3.579.2.173 1994 Unknown [id number] 2.16.840.1.266500.3.579.2.173 1994 Unknown [id number] 2.16.840.1.593563.3.579.2.593 1994 Unknown [id number] 2.16840.1.330424.3.579.2.593 1994 Unknown [id number] 2.16.840.1.467161.3.579.2.593 1994 Unknown [id number] 2.16.840.1.061967.3.579.2.593 1994 Unknown [id number] 2.16.840.1.890984.3.579.2.593 1994 Unknown [id number] 2.16.840.1.598732.3.579.2.593 1994 Unknown [id number] 2.16.840.1.543924.3.579.2.593 1994 Unknown [id number] 2.16.840.1.234498.3.579.2.593 1994 Unknown [id number] 2.16.840.1.202844.3.579.2.593 1994 Unknown [id number] 2.16.840.1.226573.3.579.2.593 1994 Unknown [id number] 2.16.840.1.549295.3.579.2.125 9 1994 Unknown [id number] 2.16.840.1.123938.3.579.2.125 9 1994 Unknown [id number] 2.16.840.1.607759.3.579.2.125 9 1959 Unknown [id number] Social History Date Type Detail Facility Start: 11-05-2017 End: 10-28-2021 Tobacco smoking status NHIS Never smoker [facility] Start: 11-05-2017 End: 06-19-2019 Alcohol intake No [place], [place] Start: 1994 Sex Assigned At Not on file [place] Start: 06-19-2019 End: 11-20-2019 Tobacco smoking status NHIS Current every day smoker [place] Start: 06-19-2019 End: 11-20-2019 Cigarettes smoked current (pack per day) - Reported [facility] Start: 11-20-2019 Alcohol intake Current non-dr snowboarder of alcohol (finding) [facility] Start: 05-01-2019 [facility] Start: 11-20-2019 End: 10-28-2021 Tobacco use and exposure Never used [facility] Start: 10-28-2021 End: 11-08-2021 Alcohol intake Ex-drinker (finding) [facility] Clinical Note 08-18-2022 Note Date & Type Note Facility 08-18-2022 Note OPERATIVE NOTE OPERATION DATE: 08/18/2022 PROCEDURE: Suction D AND C. PREOPERATIVE DIAGNOSIS: Missed . POSTOPERATIVE DIAGNOSIS: Missed . ANESTHESIA: General. SURGEON: Yousif Aparicio D.O. CORRUGATOR MACHINE OPERATOR: None. BLOOD LOSS: 75 mL. URINE OUTPUT: [...] products of conception were removed using a 10-Serbian suction curette. Excellent hemostasis was noted. The patient tolerated the procedure well. Sponge, lap, and needle counts were correct x 2. All instruments were then removed from the patient's vagina. The patient was taken to the Recovery Room in stable condition. ?? [facility] Note 12-12-2021 Telephone Encounter - Angelia Almazan - 12/12/2021 11:16 AM EDT Note Date & Type Note Facility 12-12-2021 Miscellaneous Notes Pleases sign pending new cbc order. Thanks, Angelia Almazan MA documented in this encounter [facility] Progress note 11-08-2021 Note Date & Type Note Facility 11-08-2021 Note HNO ID: [id number] Author: King Suazo MD Service: ? Author [...] shortness of breath, and is seen at [place] emergency room. Labs revealed a hemoglobin of [...] biceps/brachioradial/patella/achilles. MUSCULOSKELETAL: Neg (more content not included)... 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 DATE CREATED AUTHOR AUTHOR'S ORGANIZ ATION 04/08/2020 [facility] DATE CREATED AUTHOR AUTHOR'S ORGANIZ ATION 04/28/2020 [facility] DATE CREATED AUTHOR AUTHOR'S ORGANIZ ATION 12/13/2021 [facility] DATE CREATED AUTHOR AUTHOR'S ORGANIZ ATION 12/25/2022 [facility] DATE CREATED AUTHOR AUTHOR'S ORGANIZ ATION 09/07/2023 [facility] EPIC Source Comments (unrecognize d section and content) In the event this informatio n is protected by the Federal Confidentiality of Alcohol and Drug Abuse Patient Records regulations: The Federal rules restrict any use of the information to criminally investigate or prosecute any alcohol or drug abuse patient.[facility] the event this information is protected by the Federal Confidentiality of Alcohol and Drug Abuse Patient Records regulations: The Federal rules restrict any use of the information to criminally investigate or prosecute any alcohol or drug abuse patient.[facility] Reason for Visit (unrecogniz ed section and content) Reason Comments Lab Orders Care Teams (unrecognized sec tion and content) 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 [employer] [facility] provides no warranty or guarantee of the accuracy or completeness of information in this document.
[2023-10-09 15:22] VITALS: BP 106/55; PULSE 97
--- OUTSIDE RECORDS SUMMARY | 2023-10-16 07:40 | XMS_ITS | CCD ---
Author Name Unknown Address [id number] [place] [address] Organization [facility] Care Team Providers Care Forming Fixer Name Role Phone ANGELO SPICER Unavailable Unavailable [...] Unavailable NADERER, DR RODO Dickerson Admitting Unavailable [facility] Primary Care Unavaila ble GRECHNY ., ADELITA ORELLANA Consulting Unavailluis CAMARILLO, MYLES Alex Consulting Unavailable GAYE, GURU Consulting Unavailable ALFREDDOYOSEPH, ALIX Consulting Unavailable LINA, KAMILLA Consulting Unavailable SISTER, DANIELA Consulting Unavailable ROBBY ., DR MENENDEZ Consulting Unavailable [facility] Primary Care Unavaila ble ROBBY ., DR MENENDEZ Attending Unavailable ROBBY ., DR MENENDEZ Admitting Unavailable ELENITA, NGOC Consulting Unavailable GEMBUS, AUGUSTUS Consulting Unavailable [facility] Primary Care Unavaila ble ROBBY ., DR MENENDEZ Consulting Unavailable ROBBY ., DR MENENDEZ Attending Unavailable ROBBY ., DR MENENDEZ Admitting Unavailable ZIEBER, DR CHRISTINE Benites Consulting Unavailable ROBBY ., DR MENENDEZ Consulting Unavailable [facility] Primary Care Unavaila ble ROBBY ., [...] Propensity to adverse reactions to drug (disorder) [facility] Repository Medications Current Medications Medication [...] Onset: 11-05-2017 Other aftercare (1 source) Other chcf (current) drug therapy; Translations: [OTH 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 Hemanth Kerr CBC AUTO DIFFon 11-29-2022 BASO # 0.0 103/ul Normal 0.0-0.1 [facility] Comment on above: Performed By: #### C BC #### [facility] [address] [place] [address] Dr. Hemanth Kerr Basophils/100 WBC (Bld) 0.7 % Normal 0.2-2.0 [facility] Comment on above: Performed By: #### C BC #### [facility] [address] [place] [address] Dr. Hemanth Kerr EO # 0.2 103/ul Normal 0.0-0.7 [facility] Comment on above: Performed By: #### C BC #### [facility] [address] [place] [address] Dr. Hemanth Kerr Eosinophils/100 WBC (Bld) 3.3 % Normal 0.9-7.0 [facility] Comment on above: Performed By: #### C BC #### [facility] [address] [place] [address] Dr. Hemanth Kerr Erythrocyte distribution width (RBC) [Ratio] 14.3 % Normal 11.0-15.0 [facility] Comment on above: Performed By: #### C BC #### [facility] [address] [place] [address] Dr. Hemanth Kerr Hematocrit (Bld) [Volume fraction] 37.2 % Normal 36.0-48.0 [facility] Comment on above: Performed By: #### C BC #### [facility] [address] [place] [address] Dr. Hemanth Kerr Hemoglobin (Bld) [Mass/Vol] 11.9 g/dL Critically low 12.0-16.0 [facility] Comment on above: Performed By: #### C BC #### [facility] [address] [place] [address] Dr. Hemanth Kerr IG # 0.01 10e3/ul Normal 0.00-0.03 [facility] Comment on above: Performed By: #### C BC #### [facility] [address] [place] [address] Dr. Hemanth Kerr IG % 0.2 % Normal 0.0-0.5 [facility] Comment on above: Performed By: #### C BC #### [facility] [address] [place] [address] Dr. Hemanth Kerr LYMPH # 1.7 103/ul Normal 1.2-3.8 [facility] Comment on above: Performed By: #### C BC #### [facility] [address] [place] [address] Dr. Hemanth Kerr Lymphocytes/100 WBC (Bld) 31.3 % Normal 20.5-60.0 [facility] Comment on above: Performed By: #### C BC #### [facility] [address] [place] [address] Dr. Hemanth Kerr MANUAL DIFF REQ NO Normal [facility] Comment on above: Performed By: #### C BC #### [facility] [address] [place] [address] Dr. Hemanth Kerr MCH (RBC) [Entitic mass] 27.8 pg Normal 26.7-34.0 [facility] Comment on above: Performed By: #### C BC #### [facility] [address] [place] [address] Dr. Hemanth Kerr MCHC (RBC) [Mass/Vol] 32.0 g/dL Normal 29.9-35.2 [facility] Comment on above: Performed By: #### C BC #### [facility] [address] [place] [address] Dr. Hemanth Kerr MCV (RBC) [Entitic vol] 86.9 fL Normal 81.0-99.0 [facility] Comment on above: Performed By: #### C BC #### [facility] [address] [place] [address] Dr. Hemanth Kerr MONO # 0.4 103/ul Normal 0.3-0.8 [facility] Comment on above: Performed By: #### C BC #### [facility] [address] [place] [address] Dr. Hemanth Kerr Monocytes/100 WBC (Bld) 8.0 % Normal 1.7-12.0 [facility] Comment on above: Performed By: #### C BC #### [facility] [address] [address] [address] Hemanth Kerr NEUT # 3.1 103/ul Normal 1.4-6.5 [facility] Comment on above: Performed By: #### C BC #### [facility] [address] [place] [address] Dr. Hemanth Kerr Neutrophils/100 WBC (Bld) 56.5 % Normal 43.0-75.0 [facility] Comment on above: Performed By: #### C BC #### [facility] [address] [place] [address] Dr. Hemanth Kerr Platelet mean volume (Bld) [Entitic vol] 10.3 fL Normal 9.5-13.5 [facility] Comment on above: Performed By: #### C BC #### [facility] [address] [place] [address] Dr. Hemanth Kerr PLT 258 103/ul Normal 150-450 [facility] Comment on above: Performed By: #### C BC #### [facility] [address] [place] [address] Dr. Hemanth Kerr RBC 4.28 106/ul Normal 4.20-5.40 [facility] Comment on above: Performed By: #### C BC #### [facility] [address] [place] [address] Dr. Hemanth Kerr WBC 5.4 103/ul Normal 4.0-11.0 [facility] Comment on above: Performed By: #### C BC #### [facility] [address] [place] [address] Dr. Hemanth Kerr PROF 14(COMP METB)on 023 Albumin [Mass/Vol] 3.1 g/dL Critically low 3.4-5.0 [facility] Comment on above: Performed By: #### C MP #### [facility] [address] [place] [address] Dr. Hemanth Kerr Albumin/Globulin [Mass ratio] 1.3 {ratio} Normal [facility] Comment on above: Performed By: #### C MP #### [facility] [address] [address] [address] Hemanth Kerr ALP [Catalytic activity/Vol] 56 U/L Normal 46-116 [facility] Comment on above: Performed By: #### C MP #### [facility] [address] [address] [address] Hemanth Kerr ALT [Catalytic activity/Vol] 34 U/L Normal 14-59 [facility] Comment on above: Performed By: #### C MP #### [facility] [address] [place] [address] Dr. Hemanth Kerr Anion gap [Moles/Vol] 7.0 mmol/L Normal [facility] Comment on above: Performed By: #### C MP #### [facility] [address] [place] [address] Dr. Hemanth Kerr AST [Catalytic activity/Vol] 29 U/L Normal 15-37 [facility] Comment on above: Performed By: #### C MP #### [facility] [address] [place] [address] Dr. Hemanth Kerr Bilirubin [Mass/Vol] 0.4 mg/dL Normal 0.2-1.0 [facility] Comment on above: Performed By: #### C MP #### [facility] [address] [place] [address] Dr. Hemanth Kerr Calcium [Mass/Vol] 8.3 mg/dL Critically low 8.5-10.1 Th [facility] Comment on above: Performed By: #### C MP #### [facility] [address] [place] [address] Dr. Hemanth Kerr Chloride [Moles/Vol] 110 mmol/L Critically high 98-107 [facility] Comment on above: Performed By: #### C MP #### [facility] [address] [place] [address] Dr. Hemanth Kerr CO2 [Moles/Vol] 27.6 mmol/L Normal 21.0-32.0 [facility] Comment on above: Performed By: #### C MP #### [facility] [address] [place] [address] Dr. Hemanth Kerr Creatinine [Mass/Vol] 0.61 mg/dL Normal 0.55-1.02 [facility] Comment on above: Performed By: #### C MP #### [facility] [address] [place] [address] Dr. Hemanth Kerr EGFR-AF TUVALUAN >60 Normal >=60 [facility] Comment on above: Performed By: #### C MP #### [facility] [address] [address] [address] Hemanth Kerr EGFR-NON AF TUVALUAN >60 Normal >=60 [facility] Comment on above: Performed By: #### C MP #### [facility] [address] [place] [address] Dr. Hemanth Kerr Globulin (S) [Mass/Vol] 2.4 g/dL Normal [facility] Comment on above: Performed By: #### C MP #### [facility] [address] [place] [address] Dr. Hemanth Kerr Glucose [Mass/Vol] 110 mg/dL Critically high 74-106 [facility] Comment on above: Performed By: #### C MP #### [facility] [address] [place] [address] Dr. Hemanth Kerr Potassium [Moles/Vol] 2.6 mmol/L Critically low 3.5-5.1 [facility] Comment on above: Performed By: #### C MP #### [facility] [address] [place] [address] Dr. Hemanth Kerr Protein [Mass/Vol] 5.5 g/dL Critically low 6.4-8.2 Th [facility] Comment on above: Performed By: #### C MP #### [facility] [address] [place] [address] Dr. Hemanth Kerr Sodium [Moles/Vol] 142 mmol/L Normal 136-145 [facility] Comment on above: Performed By: #### C MP #### [facility] [address] [place] [address] Dr. Hemanth Kerr Urea nitrogen [Mass/Vol] 12.0 mg/dL Normal 7.0-18.0 [facility] Comment on above: Performed By: #### C MP #### [facility] [address] [address] [address] Hemanth Kerr Urea nitrogen/Creatinine [Mass ratio] 19.7 mg/mg Normal [facility] Comment on above: Performed By: #### C MP #### [facility] [address] [address] [address] Hemanth Kerr XR HIP LT 2 [...] ALIX GRANADOS Date: 2022-11-28 22:13 Normal [facility] ACETAMINOPHENon 11-28-2022 Acetaminophen [Mass/Vol] ug/mL Critically low 10.0-30.0 [facility] Comment on above: Performed By: #### C MP #### [facility] [address] [address] [address] Hemanth Kerr ACETONE SERUMon 11-28-2022 ACETONE Negative Normal NEGATIVE [facility] Comment on above: Performed By: #### P REG #### [facility] [address] [address] [address] Hemanth Kerr AMMONIAon 11-28-2022 Ammonia (P) [Moles/Vol] 24 umol/L Normal - [facility] Comment on above: Performed By: #### L ACT #### [facility] [address] [address] [address] Hemanth Kerr CBC AUTO DIFFon 11-28-2022 BASO # 0.0 103/ul Normal 0.0-0.1 [facility] Comment on above: Performed By: #### L ACT #### [facility] [address] [address] [address] Hemanth Kerr Basophils/100 WBC (Bld) 0.4 % Normal 0.2-2.0 [facility] Comment on above: Performed By: #### L ACT #### [facility] [address] [place] [address] Dr. Hemanth Kerr EO # 0.3 103/ul Normal 0.0-0.7 [facility] Comment on above: Performed By: #### L ACT #### [facility] [address] [place] [address] Dr. Hemanth Kerr Eosinophils/100 WBC (Bld) 3.1 % Normal 0.9-7.0 [facility] Comment on above: Performed By: #### L ACT #### [facility] [address] [place] [address] Dr. Hemanth Kerr Erythrocyte distribution width (RBC) [Ratio] 14.3 % Normal 11.0-15.0 [facility] Comment on above: Performed By: #### L ACT #### [facility] [address] [place] [address] Dr. Hemanth Kerr Hematocrit (Bld) [Volume fraction] 41.3 % Normal 36.0-48.0 [facility] Comment on above: Performed By: #### L ACT #### [facility] [address] [place] [address] Dr. Hemanth Kerr Hemoglobin (Bld) [Mass/Vol] 13.3 g/dL Normal 12.0-16.0 [facility] Comment on above: Performed By: #### L ACT #### [facility] [address] [place] [address] Dr. Hemanth Kerr IG # 0.02 10e3/ul Normal 0.00-0.03 [facility] Comment on above: Performed By: #### L ACT #### [facility] [address] [place] [address] Dr. Hemanth Kerr IG % 0.2 % Normal 0.0-0.5 [facility] Comment on above: Performed By: #### L ACT #### [facility] [address] [place] [address] Dr. Hemanth Kerr LYMPH # 2.4 103/ul Normal 1.2-3.8 [facility] Comment on above: Performed By: #### L ACT #### [facility] [address] [place] [address] Dr. Hemanth Kerr Lymphocytes/100 WBC (Bld) 26.3 % Normal 20.5-60.0 [facility] Comment on above: Performed By: #### L ACT #### [facility] [address] [place] [address] Dr. Hemanth Kerr MANUAL DIFF REQ NO Normal [facility] Comment on above: Performed By: #### L ACT #### [facility] [address] [place] [address] Dr. Hemanth Kerr MCH (RBC) [Entitic mass] 27.4 pg Normal 26.7-34.0 [facility] Comment on above: Performed By: #### L ACT #### [facility] [address] [place] [address] Dr. Hemanth Kerr MCHC (RBC) [Mass/Vol] 32.2 g/dL Normal 29.9-35.2 [facility] Comment on above: Performed By: #### L ACT #### [facility] [address] [place] [address] Dr. Hemanth Kerr MCV (RBC) [Entitic vol] 85.0 fL Normal 81.0-99.0 [facility] Comment on above: Performed By: #### L ACT #### [facility] [address] [place] [address] Dr. Hemanth Kerr MONO # 0.7 103/ul Normal 0.3-0.8 [facility] Comment on above: Performed By: #### L ACT #### [facility] [address] [place] [address] Dr. eHmanth Kerr Monocytes/100 WBC (Bld) 7.3 % Normal 1.7-12.0 [facility] Comment on above: Performed By: #### L ACT #### [facility] [address] [place] [address] Dr. Hemanth Kerr NEUT # 5.7 103/ul Normal 1.4-6.5 [facility] Comment on above: Performed By: #### L ACT #### [facility] [address] [address] [address] Hemanth Kerr Neutrophils/100 WBC (Bld) 62.7 % Normal 43.0-75.0 [facility] Comment on above: Performed By: #### L ACT #### [facility] [address] [address] [address] Hemanth Kerr Platelet mean volume (Bld) [Entitic vol] 10.6 fL Normal 9.5-13.5 [facility] Comment on above: Performed By: #### L ACT #### [facility] [address] [address] [address] Hemanth Kerr PLT 347 103/ul Normal 150-450 [facility] Comment on above: Performed By: #### L ACT #### [facility] [address] [place] [address] Dr. Hemanth Kerr RBC 4.86 106/ul Normal 4.20-5.40 [facility] Comment on above: Performed By: #### L ACT #### [facility] [address] [place] [address] Dr. Hemanth Kerr WBC 9.1 103/ul Normal 4.0-11.0 [facility] Comment on above: Performed By: #### L ACT #### [facility] [address] [place] [address] CSPINE WO CONon [...] KAMILLA MILLS Date: 2022-11-28 17:54 Normal [facility] CT HEAD WO CONon 11-28-2022 CT [...] KAMILLA MILLS Date: 2022-11-28 18:40 Normal [facility] CULTURE BLOODon 11-28-2022 Microscopic examination of blood, culture Culture Observations: NO GROWTH AT 5 DAYS. Normal [facility] Comment on above: Performed By: #### C BC #### [facility] [address] [place] [address] Dr. Hemanth Kerr Microscopic examination of blood, culture Culture Observations: NO GROWTH AT 5 DAYS. Normal [facility] Comment on above: Performed By: #### B [id number] #### [facility] [address] [place] [address] Dr. Hemanth Kerr [facility]15 SARS-CoV-2 (COVID-19) RNA ELMO+probe Ql (Unsp spec) Not detected Normal NOT DETECTED [facility] Comment on above: Result Comment: When [...] for this test is supported by the Supervisor Production Department of Health and Human Service's declaration that [...] used). Performed By: #### L ACT #### [facility] [address] [place] [address] Dr. Hemanth Kerr DRUG SCREEN RAPID (URINE)on 11-28-2022 AMP Positive Abnormal NEGATIVE [facility] Comment on above: Performed By: #### P REG #### [facility] [address] [place] [address] Dr. Hemanth Kerr BAR Negative Normal NEGATIVE [facility] Comment on above: Performed By: #### P REG #### [facility] [address] [place] [address] Dr. Hemanth Kerr BUP Negative Normal NEGATIVE [facility] Comment on above: Performed By: #### P REG #### [facility] [address] [place] [address] Dr. Hemanth Kerr BZO Negative Normal NEGATIVE [facility] Comment on above: Performed By: #### P REG #### [facility] [address] [place] [address] Dr. Hemanth Kerr YOLANDA Negative Normal NEGATIVE [facility] Comment on above: Performed By: #### P REG #### [facility] [address] [place] [address] Dr. Hemanth Kerr CUT-OFFS SEE BELOW Normal [facility] Comment on above: Result Comment: AMP [...] ng/mL Performed By: #### P REG #### [facility] [address] [place] [address] Dr. Hemanth Kerr DRUG CUT HEADER DRUG CLASS TEST SYSTEM CUT-OFF CONCENTRATIONS ARE FOLLOWS: Normal [facility] Comment on above: Performed By: #### P REG #### [facility] [address] [place] [address] Dr. Hemanth Kerr mAMP Positive Abnormal NEGATIVE [facility] Comment on above: Performed By: #### P REG #### [facility] [address] [place] [address] Dr. Hemanth Kerr MTD Negative Normal NEGATIVE [facility] Comment on above: Performed By: #### P REG #### [facility] [address] [place] [address] Dr. Hemanth Kerr OPI Negative Normal NEGATIVE [facility] Comment on above: Performed By: #### P REG #### [facility] [address] [place] [address] Dr. Hemanth Kerr OXY Negative Normal NEGATIVE [facility] Comment on above: Performed By: #### P REG #### [facility] [address] [place] [address] Dr. Hemanth Kerr PCP Negative Normal NEGATIVE [facility] Comment on above: Performed By: #### P REG #### [facility] [address] [place] [address] Dr. Hemanth Kerr PPX Negative Normal NEGATIVE [facility] Comment on above: Performed By: #### P REG #### [facility] [address] [place] [address] Dr. Hemanth Kerr TCA Negative Normal NEGATIVE [facility] Comment on above: Performed By: #### P REG #### [facility] [address] [place] [address] Dr. Hemanth Kerr THC Negative Normal NEGATIVE [facility] Comment on above: Performed By: #### P REG #### [facility] [address] [place] [address] Dr. Hemanth Kerr ER URINE PROFILEon 3 Bilirubin Ql (U) Negative Normal NEGATIVE [facility] Comment on above: Performed By: #### P REG #### [facility] [address] [place] [address] Dr. Hemanth Kerr Clarity (U) CLEAR Normal CLEAR [facility] Comment on above: Performed By: #### P REG #### [facility] [address] [place] [address] Dr. Hemanth Kerr Color (U) LT. YELLOW Normal YELLOW [facility] Comment on above: Performed By: #### P REG #### [facility] [address] [place] [address] Dr. Hemanth Kerr ERUAHD A micrscopic examination will be performed if indicated. Normal [facility] Comment on above: Performed By: #### P REG #### [facility] [address] [place] [address] Dr. Hemanth Kerr Glucose Ql (U) Negative Normal NEGATIVE [facility] Comment on above: Performed By: #### P REG #### [facility] [address] [place] [address] Dr. Hemanth Kerr Hemoglobin Ql (U) Negative Normal NEGATIVE [facility] Comment on above: Performed By: #### P REG #### [facility] [address] [place] [address] Dr. Hemanth Kerr Ketones Ql (U) Negative Normal NEGATIVE [facility] Comment on above: Performed By: #### P REG #### [facility] [address] [place] [address] Dr. Hemanth Kerr LEUKOCYTES Negative Normal NEGATIVE [facility] Comment on above: Performed By: #### P REG #### [facility] [address] [place] [address] Dr. Hemanth Kerr Nitrite Ql (U) Positive Abnormal NEGATIVE [facility] Comment on above: Performed By: #### P REG #### [facility] [address] [place] [address] Dr. Hemanth Kerr pH (U) 7.5 [pH] Normal 5-9 [facility] Comment on above: Performed By: #### P REG #### [facility] [address] [place] [address] Dr. Hemanth Kerr SPEC GRAVITY 1.020 Normal 1.005-<=1.025 [facility] Comment on above: Performed By: #### P REG #### [facility] [address] [place] [address] Dr. Hemanth Kerr UA PROTEIN TRACE Normal NEGATIVE/ TRACE [facility] Comment on above: Performed By: #### P REG #### [facility] [address] [place] [address] Dr. Hemanth Kerr UR MICRO IND INDICATED Normal [facility] Comment on above: Performed By: #### P REG #### [facility] [address] [place] [address] Dr. Hemanth Kerr Urobilinogen Qn (U) 1.0 {Jose'U}/dL Normal 0.2 - 1. 0 [facility] Comment on above: Performed By: #### P REG #### [facility] [facility] [address] [place] [address] Dr. Hemanth Kerr ETHANOL (BLD ALC)on 11-29-19 ALC NOTE NOTE: 80 mg/dl is th e legal limit for a blood alcohol level Normal [facility] Comment on above: Performed By: #### C MP #### [facility] [address] [place] [address] Dr. Hemanth Kerr Ethanol [Mass/Vol] mg/dL Normal [facility] Comment on above: Performed By: #### C MP #### [facility] [address] [place] [address] Dr. Hemanth Kerr LACTATE/LACTIC ACIDon 2022 Lactate [Moles/Vol] 0.7 mmol/L Normal 0.4-2.0 [facility] Comment on above: Performed By: #### L ACT #### [facility] [address] [address] [address] Hemanth Kerr Lactate [Moles/Vol] 9.0 mmol/L Critically high 0.4-2.0 [facility] Comment on above: Performed By: #### L ACT #### [facility] [address] [address] [address] Hemanth Kerr PH VENOUS BLOODon 11-28-2022 PCO2 VENOUS 36.6 mmHg Critically low 40.0-52.0 [facility] Comment on above: Performed By: #### P HVEN #### [facility] [address] [place] [address] Dr. Hemanth Kerr pH VENOUS 7.354 Normal 7.330-7.430 [facility] Comment on above: Performed By: #### P HVEN #### [facility] [address] [address] [address] Hemanth Kerr POINT OF CARE GLUCOSEon 11-15 Glucose [Mass/Vol] 127 mg/dL Critically high 74-106 [facility] Comment on above: Performed By: #### C BC #### [facility] [address] [place] [address] Dr. Hemanth Kerr PREG HCG QUALon 11-28-2022 , QUAL Negative Normal NEGATIVE [facility] Comment on above: Performed By: #### P REG #### [facility] [address] [place] [address] Dr. Hemanth Kerr PROF 14(COMP METB)on 023 Albumin [Mass/Vol] 3.7 g/dL Normal 3.4-5.0 [facility] Comment on above: Performed By: #### L ACT #### [facility] [address] [place] [address] Dr. Hemanth Kerr Albumin/Globulin [Mass ratio] 1.3 {ratio} Normal [facility] Comment on above: Performed By: #### L ACT #### [facility] [address] [address] [address] Hemanth Kerr ALP [Catalytic activity/Vol] 72 U/L Normal 46-116 [facility] Comment on above: Performed By: #### L ACT #### [facility] [address] [address] [address] Hemanth Kerr ALT [Catalytic activity/Vol] 42 U/L Normal 14-59 [facility] Comment on above: Performed By: #### L ACT #### [facility] [address] [address] [address] Hemanth Kerr Anion gap [Moles/Vol] 16.3 mmol/L Normal [facility] Comment on above: Performed By: #### L ACT #### [facility] [address] [place] [address] Dr. Hemanth Kerr AST [Catalytic activity/Vol] 45 U/L Critically high 15-37 [facility] Comment on above: Performed By: #### L ACT #### [facility] [address] [place] [address] Dr. Hemanth Kerr Bilirubin [Mass/Vol] 0.4 mg/dL Normal 0.2-1.0 [facility] Comment on above: Performed By: #### L ACT #### [facility] [address] [place] [address] Dr. Hemanth Kerr Calcium [Mass/Vol] 8.8 mg/dL Normal 8.5-10.1 [facility] Comment on above: Performed By: #### L ACT #### [facility] [address] [address] [address] Hemanth Kerr Chloride [Moles/Vol] 107 mmol/L Normal 98-107 [facility] Comment on above: Performed By: #### L ACT #### [facility] [address] [place] [address] Dr. Hemanth Kerr CO2 [Moles/Vol] 21.8 mmol/L Normal 21.0-32.0 [facility] Comment on above: Performed By: #### L ACT #### [facility] [id number] Hemanth Kerr Creatinine [Mass/Vol] 1.32 mg/dL Critically high 0.55-1.02 [facility] Comment on above: Performed By: #### L ACT #### [facility] [address] [address] [address] Hemanth Kerr EGFR-AF TUVALUAN 58 mL/min/1.73m2 Critically low >=60 [facility] Comment on above: Performed By: #### L ACT #### [facility] [address] [address] [address] Hemanth Kerr EGFR-NON AF TUVALUAN 48 mL/min/1.73m2 Critically low >=60 [facility] Comment on above: Performed By: #### L ACT #### [facility] [address] [address] [address] Hemanth Kerr Globulin (S) [Mass/Vol] 2.9 g/dL Normal [facility] Comment on above: Performed By: #### L ACT #### [facility] [address] [address] [address] Hemanth Kerr Glucose [Mass/Vol] 143 mg/dL Critically high 74-[address] [facility] Comment on above: Performed By: #### L ACT #### [facility] [address] [address] [address] Hemanth Kerr Potassium [Moles/Vol] 3.1 mmol/L Critically low 3.5-5.1 [facility] Comment on above: Performed By: #### L ACT #### [facility] [address] [address] [address] Hemanth Kerr Protein [Mass/Vol] 6.6 g/dL Normal 6.4-8.2 [facility] Comment on above: Performed By: #### L ACT #### [facility] [id number] Hemanth Kerr Sodium [Moles/Vol] 142 mmol/L Normal 136-145 [facility] Comment on above: Performed By: #### L ACT #### [facility] [address] [place] [address] Dr. Hemanth Kerr Urea nitrogen [Mass/Vol] 17.0 mg/dL Normal 7.0-18.0 [facility] Comment on above: Performed By: #### L ACT #### [facility] [address] [place] [address] Dr. Hemanth Kerr Urea nitrogen/Creatinine [Mass ratio] 12.9 mg/mg Normal [facility] Comment on above: Performed By: #### L ACT #### [facility] [address] [place] [address] Dr. Hemanth Kerr PROTIMEon 11-28-2022 INR Coag (PPP) [Relative time] 0.97 {INR} Normal [facility] Comment on above: Performed By: #### P T, PTT #### [facility] [address] [place] [address] Dr. Hemanth Kerr INR GUIDELINES SEE BELOW Normal [facility] Comment on above: Result Comment: CHAN RED INR: 2.0 - 3.0 CONDITIONS NOT LISTED BELOW 2.5 - 3.5 FOR PROSTHETIC HEART VALVE REPLACEMENT 2.5 - 3.5 RECURRENT THROMBOSIS Performed By: #### P T, PTT #### [facility] [address] [place] [address] Dr. Hemanth Kerr PT Coag (PPP) [Time] 10.3 s Normal 9.0-11.6 [facility] Comment on above: Performed By: #### P T, PTT #### [facility] [address] [place] [address] Dr. Hemanth Kerr PTTon 11-28-2022 aPTT Coag (Bld) [Time] 25.4 s Normal 22.3-36.2 [facility] Comment on above: Performed By: #### P T, PTT #### [facility] [address] [place] [address] Dr. Hemanth Kerr SALICYLATEon 11-28-2022 SALICYLATE <2.8 Normal <=19.9 [facility] Comment on above: Performed By: #### C MP #### [facility] [address] [place] [address] Dr. Hemanth Kerr TROPONIN, HIGH SENSITIVITYon 11-28-2022 HSTROP 4.2 pg/mL Normal 4.0-51.3 [facility] Comment on above: Result Comment: CUT- OFF POINTS HAVE BEEN ESTABLISHED BASED ON THE FOURTH UNIVERSAL DEFINITIONS OF MYOCARDIAL INFARCTION. THE UPPER REFERENCE LIMIT (URL) OF TROPONIN, DEFINED THE 99TH PERCENTILE OF cTnI DISTRIBUTION IN A REFERENCE POPULATION, HAS BEEN CONFIRMED THE DECISION THRESHOLD FOR TX DIAGNOSIS. Performed By: #### C MP #### [facility] [address] [place] [address] Dr. Hemanth Kerr TSHon 11-28-2022 TSH 3.476 uIU/mL Normal 0.358-3.740 [facility] Comment on above: Performed By: #### L ACT #### [facility] [address] [place] [address] Dr. Hemanth Kerr URINE MICROSCOPIC ONLYon BACTERIA LARGE Abnormal NONE SEEN [facility] Comment on above: Performed By: #### P REG #### [facility] [address] [place] [address] Dr. Hemanth Kerr Bacteria identified Cx Nom (U) INDICATED Normal [facility] Comment on above: Performed By: #### P REG #### [facility] [address] [place] [address] Dr. Hemanth Kerr CAST SEEN Abnormal NONE SEEN [facility] Comment on above: Performed By: #### P REG #### [facility] [address] [place] [address] Dr. Hemanth Kerr COARSE GRANULAR CAST RARE Normal [facility] Comment on above: Performed By: #### P REG #### [facility] [address] [place] [address] Dr. Hemanth Kerr Crystals LM Nom (Urine sed) NONE SEEN Normal NONE SEEN [facility] Comment on above: Performed By: #### P REG #### [facility] [address] [place] [address] Dr. Hemanth Kerr Epithelial cells LM Ql (Urine sed) RARE Normal NONE SEEN /RARE [facility] Comment on above: Performed By: #### P REG #### [facility] [address] [address] [address] Hemanth Kerr MUCOUS NONE SEEN Normal NONE SEEN [facility] Comment on above: Performed By: #### P REG #### [facility] [address] [address] [address] Hemanth Kerr RBC 0-2 Normal 0-2 [facility] Comment on above: Performed By: #### P REG #### [facility] [address] [place] [address] Dr. Hemanth Kerr WBC 2-5 Abnormal NONE SEEN [facility] Comment on above: Performed By: #### P REG #### [facility] [address] [address] [address] Hemanth Kerr XR CHEST 1 Von [...] by: KAMILLA MILLS Date: 2022-11-28 17:39 Normal [facility] CULTURE URINEon 10-13-2022 CULTURE URINE Isolate [...] Trimethoprim/Sulfamet hoxazole >=320 R F Normal [facility] Comment on above: Performed By: #### U RCX #### [facility] [address] [address] [address] Hemanth Kerr CBC AUTO DIFFon 10-11-2022 BASO # 0.0 103/ul Normal 0.0-0.1 [facility] Comment on above: Performed By: #### C BC #### [facility] [address] [address] [address] Hemanth Kerr Basophils/100 WBC (Bld) 0.3 % Normal 0.2-2.0 [facility] Comment on above: Performed By: #### C BC #### [facility] [address] [place] [address] Dr. Hemanth Kerr EO # 0.0 103/ul Normal 0.0-0.7 [facility] Comment on above: Performed By: #### C BC #### [facility] [address] [place] [address] Dr. Hemanth Kerr Eosinophils/100 WBC (Bld) 0.4 % Critically low 0.9-7.0 [facility] Comment on above: Performed By: #### C BC #### [facility] [address] [place] [address] Dr. Hemanth Kerr Erythrocyte distribution width (RBC) [Ratio] 12.2 % Normal 11.0-15.0 [facility] Comment on above: Performed By: #### C BC #### [facility] [address] [place] [address] Dr. Hemanth Kerr Hematocrit (Bld) [Volume fraction] 38.6 % Normal 36.0-48.0 [facility] Comment on above: Performed By: #### C BC #### [facility] [address] [place] [address] Dr. Hemanth Kerr Hemoglobin (Bld) [Mass/Vol] 12.0 g/dL Normal 12.0-16.0 [facility] Comment on above: Performed By: #### C BC #### [facility] [address] [place] [address] Dr. Hemanth Kerr IG # 0.07 10e3/ul Critically high 0.00-0.03 [facility] Comment on above: Performed By: #### C BC #### [facility] [address] [address] [address] Hemanth Kerr IG % 0.7 % Critically high 0.0-0.5 [facility] Comment on above: Performed By: #### C BC #### [facility] [address] [place] [address] Dr. Hemanth Kerr LYMPH # 1.2 103/ul Normal 1.2-3.8 [facility] Comment on above: Performed By: #### C BC #### [facility] [address] [place] [address] Dr. Hemanth Kerr Lymphocytes/100 WBC (Bld) 12.1 % Critically low 20.5-60.0 [facility] Comment on above: Performed By: #### C BC #### [facility] [address] [place] [address] Dr. Hemanth Kerr MANUAL DIFF REQ NO Normal [facility] Comment on above: Performed By: #### C BC #### [facility] [address] [place] [address] Dr. Hemanth Kerr MCH (RBC) [Entitic mass] 28.0 pg Normal 26.7-34.0 [facility] Comment on above: Performed By: #### C BC #### [facility] [address] [place] [address] Dr. Hemanth Kerr MCHC (RBC) [Mass/Vol] 31.1 g/dL Normal 29.9-35.2 [facility] Comment on above: Performed By: #### C BC #### [facility] [address] [place] [address] Dr. Hemanth Kerr MCV (RBC) [Entitic vol] 90.2 fL Normal 81.0-99.0 [facility] Comment on above: Performed By: #### C BC #### [facility] [address] [place] [address] Dr. Hemanth Kerr MONO # 0.7 103/ul Normal 0.3-0.8 [facility] Comment on above: Performed By: #### C BC #### [facility] [address] [address] [address] Hemanth Kerr Monocytes/100 WBC (Bld) 6.9 % Normal 1.7-12.0 [facility] Comment on above: Performed By: #### C BC #### [facility] [address] [address] [address] Hemanth Kerr NEUT # 8.1 103/ul Critically high 1.4-6.5 [facility] Comment on above: Performed By: #### C BC #### [facility] [address] [address] [address] Hemanth Kerr Neutrophils/100 WBC (Bld) 79.6 % Critically high 43.0-75.0 [facility] Comment on above: Performed By: #### C BC #### [facility] [address] [place] [address] Dr. Hemanth Kerr Platelet mean volume (Bld) [Entitic vol] 10.8 fL Normal 9.5-13.5 [facility] Comment on above: Performed By: #### C BC #### [facility] [address] [address] [address] Hemanth Kerr PLT 452 103/ul Critically high 150-450 [facility] Comment on above: Performed By: #### C BC #### [facility] [address] [place] [address] Dr. Hemanth Kerr RBC 4.28 106/ul Normal 4.20-5.40 [facility] Comment on above: Performed By: #### C BC #### [facility] [address] [address] [address] Hemanth Kerr WBC 10.1 103/ul Normal 4.0-11.0 [facility] Comment on above: Performed By: #### C BC #### [facility] [address] [place] [address] ABD/PELVIS WO CONon [...] CHRISTINE SÁNCHEZ Date: 2022-10-11 14:45 Normal [facility] ER URINE PROFILEon 3 Bilirubin Ql (U) Negative Normal NEGATIVE [facility] Comment on above: Performed By: #### L ACT #### [facility] [address] [place] [address] Dr. Hemanth Kerr Clarity (U) CLEAR Normal CLEAR [facility] Comment on above: Performed By: #### L ACT #### [facility] [address] [address] [address] Hemanth Kerr Color (U) LT. YELLOW Normal YELLOW [facility] Comment on above: Performed By: #### L ACT #### [facility] [address] [address] [address] Hemanth Kerr ERUAHD A micrscopic examination will be performed if indicated. Normal [facility] Comment on above: Performed By: #### L ACT #### [facility] [address] [address] [address] Hemanth Kerr Glucose Ql (U) Negative Normal NEGATIVE [facility] Comment on above: Performed By: #### L ACT #### [facility] [address] [address] [address] Hemanth Kerr Hemoglobin Ql (U) LARGE Abnormal NEGATIVE [facility] Comment on above: Performed By: #### L ACT #### [facility] [address] [address] [address] Hemanth Kerr Ketones Ql (U) Negative Normal NEGATIVE [facility] Comment on above: Performed By: #### L ACT #### [facility] [address] [place] [address] Dr. Hemanth Kerr LEUKOCYTES SMALL Abnormal NEGATIVE [facility] Comment on above: Performed By: #### L ACT #### [facility] [address] [place] [address] Dr. Hemanth Kerr Nitrite Ql (U) Negative Normal NEGATIVE [facility] Comment on above: Performed By: #### L ACT #### [facility] [address] [address] [address] Hemanth Kerr pH (U) 6.5 [pH] Normal 5-9 [facility] Comment on above: Performed By: #### L ACT #### [facility] [address] [address] [address] Hemanth Kerr Protein (U) [Mass/Vol] 30 mg/dL Abnormal NEGATIVE/ TRACE [facility] Comment on above: Performed By: #### L ACT #### [facility] [address] [place] [address] Dr. Hemanth Kerr SPEC GRAVITY <=1.005 Abnormal 1.005-<=1.025 [facility] Comment on above: Performed By: #### L ACT #### [facility] [address] [address] [address] Hemanth Kerr UR MICRO IND INDICATED Normal [facility] Comment on above: Performed By: #### L ACT #### [facility] [address] [address] [address] Hemanth Kerr Urobilinogen Qn (U) 1.0 {Jose'U}/dL Normal 0.2 - 1. 0 [facility] Comment on above: Performed By: #### L ACT #### [facility] [address] [address] [address] Hemanth Kerr PREG HCG QUALon 10-11-2022 , QUAL Negative Normal NEGATIVE [facility] Comment on above: Performed By: #### P REG #### [facility] [address] [address] [address] Hemanth Kerr PROF CHEM 8 (BAS METB)on Anion gap [Moles/Vol] 9.4 mmol/L Normal [facility] Comment on above: Performed By: #### L ACT #### [facility] [address] [address] [address] Hemanth Kerr Calcium [Mass/Vol] 8.8 mg/dL Normal 8.5-10.1 [facility] Comment on above: Performed By: #### L ACT #### [facility] [address] [address] [address] Hemanth Kerr Chloride [Moles/Vol] 97 mmol/L Critically low 98-107 [facility] Comment on above: Performed By: #### L ACT #### [facility] [address] [address] [address] Hemanth Kerr CO2 [Moles/Vol] 32.4 mmol/L Critically high 21.0-32.0 [facility] Comment on above: Performed By: #### L ACT #### [facility] [address] [address] [address] Hemanth Kerr Creatinine [Mass/Vol] 0.65 mg/dL Normal 0.55-1.02 [facility] Comment on above: Performed By: #### L ACT #### [facility] [address] [address] [address] Hemanth Kerr EGFR-AF TUVALUAN >60 Normal >=60 [facility] Comment on above: Performed By: #### L ACT #### [facility] [address] [place] [address] Dr. Hemanth Kerr EGFR-NON AF TUVALUAN >60 Normal >=60 [facility] Comment on above: Performed By: #### L ACT #### [facility] [address] [address] [address] Hemanth Kerr Glucose [Mass/Vol] 117 mg/dL Critically high 74-[address] [facility] Comment on above: Performed By: #### L ACT #### [facility] [address] [place] [address] Dr. Hemanth Kerr Potassium [Moles/Vol] 2.8 mmol/L Critically low 3.5-5.1 [facility] Comment on above: Performed By: #### L ACT #### [facility] [address] [place] [address] Dr. Hemanth Kerr Sodium [Moles/Vol] 135 mmol/L Critically low 136-145 Th [facility] Comment on above: Performed By: #### L ACT #### [facility] [address] [place] [address] Dr. Hemanth Kerr Urea nitrogen [Mass/Vol] 8.0 mg/dL Normal 7.0-18.0 [facility] Comment on above: Performed By: #### L ACT #### [facility] [address] [place] [address] Dr. Hemanth Kerr Urea nitrogen/Creatinine [Mass ratio] 12.3 mg/mg Normal [facility] Comment on above: Performed By: #### L ACT #### [facility] [address] [place] [address] Dr. Hemanth Kerr URINE MICROSCOPIC ONLYon BACTERIA SMALL Abnormal NONE SEEN [facility] Comment on above: Performed By: #### L ACT #### [facility] [address] [place] [address] Dr. Hemanth Kerr Bacteria identified Cx Nom (U) INDICATED Normal [facility] Comment on above: Performed By: #### L ACT #### [facility] [address] [place] [address] Dr. Hemanth Kerr CAST NONE SEEN Normal NONE SEEN [facility] Comment on above: Performed By: #### L ACT #### [facility] [address] [place] [address] Dr. Hemanth Kerr Crystals LM Nom (Urine sed) NONE SEEN Normal NONE SEEN [facility] Comment on above: Performed By: #### L ACT #### [facility] [address] [place] [address] Dr. Hemanth Kerr Epithelial cells LM Ql (Urine sed) FEW Abnormal NONE SEEN /RARE [facility] Comment on above: Performed By: #### L ACT #### [facility] [address] [place] [address] Dr. Hemanth Kerr MUCOUS NONE SEEN Normal NONE SEEN [facility] Comment on above: Performed By: #### L ACT #### [facility] [address] [place] [address] Dr. Hemanth Kerr RBC 0-2 Normal 0-2 [facility] Comment on above: Performed By: #### L ACT #### [facility] [address] [place] [address] Dr. Hemanth Kerr WBC 10-20 Abnormal NONE SEEN [facility] Comment on above: Performed By: #### L ACT #### [facility] [address] [place] [address] Dr. Hemanth Kerr PREG QUANT HCGon 09-12-2022 HCG QUANT 66 mIU/mL Normal [facility] Comment on above: Performed By: #### C MP #### [facility] [address] [place] [address] Dr. Hemanth Kerr HCG RANGE SEE BELOW Normal [facility] Comment on above: Result Comment: 5-50 0.2-1 WEEK 50-500 1-2 WEEKS 100-5,000 2-3 WEEKS 500-10,000 3-4 WEEKS 1,000-50,000 4-5 WEEKS 10,000-100,000 5-6 WEEKS 15,000-200,000 6-8 WEEKS 10,000-100,000 2-3 MONTHS Performed By: #### C MP #### [facility] [address] [place] [address] Dr. Hemanth Kerr CBC AUTO DIFFon 11-30-2022 BASO # 0.0 103/ul Normal 0.0-0.1 [facility] Comment on above: Performed By: #### L ACT #### [facility] [address] [address] [address] Hemanth Kerr Basophils/100 WBC (Bld) 0.6 % Normal 0.2-2.0 [facility] Comment on above: Performed By: #### L ACT #### [facility] [address] [address] [address] Hemanth Kerr EO # 0.1 103/ul Normal 0.0-0.7 [facility] Comment on above: Performed By: #### L ACT #### [facility] [address] [place] [address] Dr. Hemanth Kerr Eosinophils/100 WBC (Bld) 1.3 % Normal 0.9-7.0 [facility] Comment on above: Performed By: #### L ACT #### [facility] [address] [place] [address] Dr. Hemanth Kerr Erythrocyte distribution width (RBC) [Ratio] 12.0 % Normal 11.0-15.0 [facility] Comment on above: Performed By: #### L ACT #### [facility] [address] [place] [address] Dr. Hemanth Kerr Hematocrit (Bld) [Volume fraction] 35.6 % Critically low 36.0-48.0 [facility] Comment on above: Performed By: #### L ACT #### [facility] [address] [place] [address] Dr. Hemanth Kerr Hemoglobin (Bld) [Mass/Vol] 12.4 g/dL Normal 12.0-16.0 [facility] Comment on above: Performed By: #### L ACT #### [facility] [address] [place] [address] Dr. Hemanth Kerr IG # 0.02 10e3/ul Normal 0.00-0.03 [facility] Comment on above: Performed By: #### L ACT #### [facility] [address] [place] [address] Dr. Hemanth Kerr IG % 0.3 % Normal 0.0-0.5 [facility] Comment on above: Performed By: #### L ACT #### [facility] [address] [place] [address] Dr. Hemanth Kerr LYMPH # 1.9 103/ul Normal 1.2-3.8 [facility] Comment on above: Performed By: #### L ACT #### [facility] [address] [place] [address] Dr. Hemanth Kerr Lymphocytes/100 WBC (Bld) 27.5 % Normal 20.5-60.0 [facility] Comment on above: Performed By: #### L ACT #### [facility] [address] [place] [address] Dr. Hemanth Kerr MANUAL DIFF REQ NO Normal [facility] Comment on above: Performed By: #### L ACT #### [facility] [address] [place] [address] Dr. Hemanth Kerr MCH (RBC) [Entitic mass] 29.6 pg Normal 26.7-34.0 [facility] Comment on above: Performed By: #### L ACT #### [facility] [address] [place] [address] Dr. Hemanth Kerr MCHC (RBC) [Mass/Vol] 34.8 g/dL Normal 29.9-35.2 [facility] Comment on above: Performed By: #### L ACT #### [facility] [address] [place] [address] Dr. Hemanth Kerr MCV (RBC) [Entitic vol] 85.0 fL Normal 81.0-99.0 [facility] Comment on above: Performed By: #### L ACT #### [facility] [address] [place] [address] Dr. Hemanth Kerr MONO # 0.4 103/ul Normal 0.3-0.8 [facility] Comment on above: Performed By: #### L ACT #### [facility] [address] [place] [address] Dr. Hemanth Kerr Monocytes/100 WBC (Bld) 6.3 % Normal 1.7-12.0 [facility] Comment on above: Performed By: #### L ACT #### [facility] [address] [place] [address] Dr. Hemanth Kerr NEUT # 4.5 103/ul Normal 1.4-6.5 [facility] Comment on above: Performed By: #### L ACT #### [facility] [address] [place] [address] Dr. Hemanth Kerr Neutrophils/100 WBC (Bld) 64.0 % Normal 43.0-75.0 [facility] Comment on above: Performed By: #### L ACT #### [facility] [address] [place] [address] Dr. Hemanth Kerr Platelet mean volume (Bld) [Entitic vol] 10.6 fL Normal 9.5-13.5 [facility] Comment on above: Performed By: #### L ACT #### [facility] [address] [place] [address] Dr. Hemanth Kerr PLT 247 103/ul Normal 150-450 [facility] Comment on above: Performed By: #### L ACT #### [facility] [address] [place] [address] Dr. Hemanth Kerr RBC 4.19 106/ul Critically low 4.20-5.40 [facility] Comment on above: Performed By: #### L ACT #### [facility] [address] [place] [address] Dr. Hemanth Kerr WBC 7.0 103/ul Normal 4.0-11.0 [facility] Comment on above: Performed By: #### L ACT #### [facility] [address] [place] [address] Dr. Hemanth Kerr Covid-19 PCR ([facility])on 07-20 SARS-CoV-2 (COVID-19) RNA ELMO+probe Ql (Unsp spec) Not detected Normal NOT DETECTED [facility] Comment on above: Result Comment: This test is not yet approved or cleared by the [place] FDA. When there are no FDA-approved or cleared tests available, and other criteria are met, FDA can make tests available under an emergency access mechanism called an Emergency Use Authorization (EUA). The EUA for this test is supported by the [place] of Health and Human Service's (HHS's) declaration [...] SARS-CoV-2. Performed By: #### C MP #### [facility] [address] [place] [address] Dr. Hemanth Kerr PREG QUANT HCGon 08-16-2022 HCG QUANT [id number] mIU/mL Normal [facility] Comment on above: Performed By: #### P REG #### [facility] [address] [place] [address] Dr. Hemanth Kerr HCG RANGE SEE BELOW Normal [facility] Comment on above: Result Comment: 5-50 0.2-1 WEEK 50-500 1-2 WEEKS 100-5,000 2-3 WEEKS 500-10,000 3-4 WEEKS 1,000-50,000 4-5 WEEKS 10,000-100,000 5-6 WEEKS 15,000-200,000 6-8 WEEKS 10,000-100,000 2-3 MONTHS Performed By: #### P REG #### [facility] [address] [place] [address] Dr. Hemanth Kerr PREG QUANT HCGon 08-14-2022 HCG QUANT 04523 mIU/mL Normal [facility] Comment on above: Performed By: #### P REG #### [facility] [address] [place] [address] Dr. Hemanth Kerr HCG RANGE SEE BELOW Normal [facility] Comment on above: Result Comment: 5-50 0.2-1 WEEK 50-500 1-2 WEEKS 100-5,000 2-3 WEEKS 500-10,000 3-4 WEEKS 1,000-50,000 4-5 WEEKS 10,000-100,000 5-6 WEEKS 15,000-200,000 6-8 WEEKS 10,000-100,000 2-3 MONTHS Performed By: #### P REG #### [facility] [address] [address] [address] Hemanth Kerr US PREG TVon 08-14-2022 [...] SÁNCHEZ Date: 2022-08-14 16:22 Normal [facility] US PREG TVon 07-27-2022 US PREG [...] SÁNCHEZ Date: 2022-07-27 17:04 Normal [facility] XR CHEST 1 Von 07-09-2022 XR [...] [facility] 12-12[facility]2021 [facility] Telephone ([employer]) NOE ERVIN ([id number]) 1995 F Date Time Provider Department 12/12/21 KING SUAZO During your visit today, we recorded the following information about you: Angelia Almazan 12/12/2021 11:16 AM Signed Pleases sign pending new cbc order. Thanks, Angelia Almazan MA Allergies As of Date: 12/12/2021 (No Known Allergies) Date Reviewed: 12/12/2021 Reviewed by: Jasmin Silverio APRN.[facility] - Fully Assessed Reason for Visit: Lab Orders [168] Primary Visit Diagnosis:Iron deficiency anemia, unspecified iron deficiency anemia type [D50.9] Order(s):CBC + DIFF [SQCBCDIF] Order #: [id number] FUTURE Prescriptions as of 12/12/2021 - gabapentin (NEURONTIN) 400 mg capsule Take by mouth. - Polysaccharide Iron Complex 180 mg iron cap Take by mouth. - aspirin 81 mg cap Take 81 mg by mouth once daily. - ONDANSETRON HCL ORAL Take 4 mg by mouth as needed. Problem List As Of Date: 12/12/2021 (None) Encounter Status:Closed by JASMIN SILVERIO on 12/12/21 Normal [facility] 11-10-2021 [facility] Telephone ([employer]) NOE ERVIN ([id number]) 1995 F Date Time Provider Department 11/10/21 [...] B12 is slightly low. Options would be [id number] B12 tablets 2 mg daily or start a monthly injection. Thanks, MELANY De La O RN 11/10/2021 3:40 PM Signed Informed pt of Dr Suazo's message. Pt verbalized understanding and states [facility] told her only 2 doses of [...] by JENNYFER DE LA O on 11/10/21 [facility] CNOVSPon 11-08-2021 CNOVSP Visit (SP) Office (HEMASA) NOE ERVIN ([id number]) 1995 F Date Time Provider Department 11/08/21 [...] shortness of breath, and is seen at [place] emergency room. Labs revealed a hemoglobin of [...] changes, r (more content not included)... Normal [facility] Comp Metabolic Panelon 11-08 Albumin [Mass/Vol] 3.6 g/dL Low 3.9-4.9 [facility] Comment on above: Performed By: #### S ERFOL, IRON, B12, FERR #### [facility] [address] [place], [place] [address] ALP [Catalytic activity/Vol] 79 U/L Normal 34-123 [facility] Comment on above: Performed By: #### S ERFOL, IRON, B12, FERR #### [facility] [address] [place], [place] [address] ALT [Catalytic activity/Vol] 8 U/L Normal 7-38 [facility] Comment on above: Performed By: #### S ERFOL, IRON, B12, FERR #### [facility] [address] [place], [place] [address] Anion gap [Moles/Vol] 9 mmol/L Normal 9-18 [facility] Comment on above: Performed By: #### S ERFOL, IRON, B12, FERR #### [facility] [address] [place], [place] [address] AST [Catalytic activity/Vol] 13 U/L Normal 13-35 [facility] Comment on above: Performed By: #### S ERFOL, IRON, B12, FERR #### [id number] [place] [address] Bilirubin [Mass/Vol] 0.2 mg/dL Normal 0.2-1.3 [facility] Comment on above: Performed By: #### S ERFOL, IRON, B12, FERR #### [place] [address] Calcium [Mass/Vol] 9.3 mg/dL Normal 8.5-10.2 [facility] Comment on above: Performed By: #### S ERFOL, IRON, B12, FERR #### [place] [address] Chloride [Moles/Vol] 102 mmol/L Normal 97-105 [facility] Comment on above: Performed By: #### S ERFOL, IRON, B12, FERR #### [place] [address] CO2 [Moles/Vol] 23 mmol/L Normal 22-30 [facility] Comment on above: Performed By: #### S ERFOL, IRON, B12, FERR #### [place] [address] Creatinine [Mass/Vol] 0.55 mg/dL Low 0.58-0.96 [facility] Comment on above: Performed By: #### S ERFOL, IRON, B12, FERR #### [place] [address] eGFR- Amer. >60 Normal [facility] Comment on above: Performed By: #### S ERFOL, IRON, B12, FERR #### [place] [address] eGFR-All Other Races >60 Normal [facility] Comment on above: Result Comment: eGFR [...] #### S ERFOL, IRON, B12, FERR #### [facility] [address] [id number] Glucose [Mass/Vol] 96 mg/dL Normal 74-99 [facility] Comment on above: Result Comment: The [place] Diabetes [employer] (ADA) provides guidance for cutoff [...] Standards of Medical Care in Diabetes 2016, [place] [employer]. Diabetes Care. 2016.39(Suppl 1). Performed By: #### S ERFOL, IRON, B12, FERR #### [facility] [address] [place], [place] [address] Potassium [Moles/Vol] 3.3 mmol/L Low 3.7-5.1 [facility] Comment on above: Performed By: #### S ERFOL, IRON, B12, FERR #### [facility] [address] [place], [place] [address] Protein [Mass/Vol] 6.3 g/dL Normal 6.3-8.0 [facility] Comment on above: Performed By: #### S ERFOL, IRON, B12, FERR #### [address] [address] Sodium [Moles/Vol] 134 mmol/L Low 136-144 [facility] Comment on above: Performed By: #### S ERFOL, IRON, B12, FERR #### [place] [address] Urea nitrogen [Mass/Vol] 4 mg/dL Low 7-21 [facility] Comment on above: Performed By: #### S ERFOL, IRON, B12, FERR #### [place] [address] Ferritinon 11-08-2021 Ferritin [Mass/Vol] 203.0 ng/mL Normal 14.7-205.1 [facility] Comment on above: Performed By: #### S ERFOL, IRON, B12, FERR #### [address] [address] Folate, Serumon 11-08-2021 Folate [Mass/Vol] 8.5 ng/mL Normal >4.7 [facility] [place] Comment on above: Performed By: #### S ERFOL, IRON, B12, FERR #### [address] [place], [place] [address] Iron and TIBCon 11-08-2021 Iron [Mass/Vol] 93 ug/dL Normal 41-186 [facility] Comment on above: Performed By: #### S ERFOL, IRON, B12, FERR #### [address] [address] TIBC 407 ug/dL High 232-386 [facility] Comment on above: Performed By: #### S ERFOL, IRON, B12, FERR #### [facility] [address] [place], [place] [address] Transferrin Saturatn 23 % Normal 15-57 [facility] Comment on above: Performed By: #### S ERFOL, IRON, B12, FERR #### [facility] [address] [place], [place] [address] Remote CBCDIF (for [facility] use o nly)on 11-08-2021 Abs Baso <0.03 Normal <0.11 [facility] Abs Stark 0.57 k/uL Normal <0.87 [facility] Abs Neut 4.67 k/uL Normal 1.45-7.50 [facility] Absolute nRBC <0.01 Normal <0.01 [facility] Basophils/100 WBC (Bld) 0.3 % Normal [facility] DTYPE Auto Diff Normal [facility] Eosinophils (Bld) [#/Vol] 0.05 10*3/uL Normal <0.46 [facility] Eosinophils/100 WBC (Bld) 0.8 % Normal [facility] Erythrocyte distribution width (RBC) [Ratio] 29.9 % High 11.5-15.0 [facility] Hematocrit (Bld) [Volume fraction] 32.6 % Low 36.0-46.0 [facility] Hemoglobin (Bld) [Mass/Vol] 10.1 g/dL Low 11.5-15.5 [facility] Lymphocytes (Bld) [#/Vol] 1.25 10*3/uL Normal 1.00-4.00 [facility] Lymphocytes/100 WBC (Bld) 19.1 % Normal [facility] MCH 25.1 pG Low 26.0-34.0 [facility] MCHC (RBC) [Mass/Vol] 31.0 g/dL Normal 30.5-36.0 [facility] MCV (RBC) [Entitic vol] 81.1 fL Normal 80.0-100.0 [facility] Monocytes/100 WBC (Bld) 8.7 % Normal [facility] Neutrophils/100 WBC (Bld) 71.1 % Normal [facility] NRBCs 0.0 /100 WBC Normal 0 [facility] Platelet mean volume (Bld) [Entitic vol] 10.3 fL Normal 9.0-12.7 [facility] Platelets (Bld) [#/Vol] 223 10*3/uL Normal 150-400 [facility] Comment on above: Result Comment: Resu lt checked and verified Sample checked for a clot. RBC (Bld) [#/Vol] 4.02 10*6/uL Normal 3.90-5.20 [facility] WBC (Bld) [#/Vol] 6.56 10*3/uL Normal 3.70-11.00 [facility] Reticulocyteon 11-08-2021 Abs Retic 0.140 M/uL High 0.0180-0.1000 [facility] Comment on above: Performed By: #### S ERFOL, IRON, B12, FERR #### [facility] [address] [address] Retic% 3.5 % High 0.4-2.0 [facility] Comment on above: Performed By: #### S ERFOL, IRON, B12, FERR #### [facility] [address], [place] [id number] Vitamin B12on 11-08-2021 Cobalamin (Vitamin B12) [Mass/Vol] 218 pg/mL Low 232-1245 [facility] Comment on above: Performed By: #### S ERFOL, IRON, B12, FERR #### [facility] [address] [address] HCV RNA,Quant,PCRon 04-27-20 HCV RNA,Quant,PCR Specimen Description [...] genotypes 1-6. Report Status FINAL 04/27/2020 Normal [facility] Comment on above: Performed By: #### H IVCMB, PHEP #### [address] [address] Lieutenant Firefighter: Dom Fowler MD #### CP #### [facility] [address] [place] [address] Lieutenant Firefighter: Shakeel Graham MD [facility] 04-26-2020 Erythrocyte distribution width (RBC) [Ratio] 14.7 % High 11.8-14.4 [facility] Comment on above: Performed By: #### H IVCMB, PHEP #### [address] [address] Lieutenant Firefighter: Dom Fowler MD #### CP #### [facility] [address] [place] [address] Lieutenant Firefighter: Shakeel Graham MD Hematocrit (Bld) [Volume fraction] 36.0 % Low 36.3-47.1 [facility] Comment on above: Performed By: #### H IVCMB, PHEP #### [address] [address] Lieutenant Firefighter: Dom Fowler MD #### CP #### [facility] [address] [place] [address] Lieutenant Firefighter: Shakeel Graham MD Hemoglobin (Bld) [Mass/Vol] 10.9 g/dL Low 11.9-15.1 [facility] Comment on above: Performed By: #### H IVCMB, PHEP #### [address] [id number] Lieutenant Firefighter: Dom Fowler MD #### CP #### [facility] [address] [place] [address] Lieutenant Firefighter: Shakeel Graham MD MCH (RBC) [Entitic mass] 26.2 pg Normal 25.2-33.5 [facility] Comment on above: Performed By: #### H IVCMB, PHEP #### [address] [id number] Lieutenant Firefighter: Dom Fowler MD #### CP #### [facility] [address] [place] [address] Lieutenant Firefighter: Shakeel Graham MD MCHC (RBC) [Mass/Vol] 30.3 g/dL Normal 28.4-34.8 [facility] Comment on above: Performed By: #### H IVCMB, PHEP #### [address] [id number] Lieutenant Firefighter: Dom Fowler MD #### CP #### [facility] [address] [place] [place] [id number] Lieutenant Firefighter: Shakeel Graham MD MCV (RBC) [Entitic vol] 86.5 fL Normal 82.6-102.9 [facility] Comment on above: Performed By: #### H IVCMB, PHEP #### [address] [address] Lieutenant Firefighter: Dom Fowler MD #### CP #### [facility] [address] [place] [place] [id number] Lieutenant Firefighter: Shakeel Graham MD NRBC Automated 0.0 per 100 WBC Normal 0.0 [facility] Comment on above: Performed By: #### H IVCMB, PHEP #### [address] [id number] Lieutenant Firefighter: Dom Fowler MD #### CP #### [facility] [address] [place] [address] Lieutenant Firefighter: Shakeel Graham MD Platelet mean volume (Bld) [Entitic vol] 10.8 fL Normal 8.1-13.5 [facility] Comment on above: Performed By: #### H IVCMB, PHEP #### [address] [place], [place] [id number] Lieutenant Firefighter: Dom Fowler MD #### CP #### [facility] [address] [place], [place] [id number] Lieutenant Firefighter: Shakeel Graham MD Platelets (Bld) [#/Vol] 328 10*3/uL Normal 138-453 [facility] Comment on above: Performed By: #### H IVCMB, PHEP #### [address] [id number] Lieutenant Firefighter: Dom Fowler MD #### CP #### [facility] [address] [place] [address] Lieutenant Firefighter: Shakeel Graham MD RBC (Bld) [#/Vol] 4.16 10*6/uL Normal 3.95-5.11 [facility] Comment on above: Performed By: #### H IVCMB, PHEP #### [address] [id number] Lieutenant Firefighter: Dom Fowler MD #### CP #### [facility] [address] [place] [address] Lieutenant Firefighter: Shakeel Graham MD WBC (Bld) [#/Vol] 5.7 10*3/uL Normal 3.5-11.3 [facility] Comment on above: Performed By: #### H IVCMB, PHEP #### [address] [id number] Lieutenant Firefighter: Dom Fowler MD #### CP #### [facility] [address] [place] [address] Lieutenant Firefighter: Shakeel Graham MD Erythrocyte distribution width (RBC) [Ratio] 14.7 % High 11.8 - 14.4 % [place], [place] Hematocrit (Bld) [Volume fraction] 36.0 % Low 36.3 - 47.1 % [place] Hemoglobin (Bld) [Mass/Vol] 10.9 g/dL Low 11.9 - 15.1 g/dL [place] Interpretation and review of laboratory results Abnormal [place] MCH (RBC) [Entitic mass] 26.2 pg 25.2 - 33.5 pg [place] MCHC (RBC) [Mass/Vol] 30.3 g/dL 28.4 - 34.8 g/dL [place] MCV (RBC) [Entitic vol] 86.5 fL 82.6 - 102.9 fL [place] Platelet mean volume (Bld) [Entitic vol] 10.8 fL 8.1 - 13.5 fL [place], [place] Platelets (Bld) [#/Vol] 328 10*3/uL [place] RBC (Bld) [#/Vol] 4.16 10*6/uL 3.95 - 5.1 1 m/uL [place] WBC (Bld) [#/Vol] 0.0 10*3/uL 0.0 per 100 WBC [place], [place] WBC (Bld) [#/Vol] 5.7 10*3/uL [place] Comp Metabolic Profon 2019 Bilirubin Ql (U) <0.10 Low 0.3-1.2 [facility] Comment on above: Performed By: #### H IVCMB, PHEP #### [facility] [address] [place] [address] Lieutenant Firefighter: Dom Fowler MD #### CP #### [facility] [address] [place] [address] Lieutenant Firefighter: Shakeel Graham MD (cont.) Normal [facility] Comment on above: Result Comment: Aver age GFR for 20-29 years old: 116 mL/min/1.73sq m Chronic Kidney Disease: <60 mL/min/1.73sq m Kidney failure: <15 mL/min/1.73sq m eGFR calculated using average adult body mass. Additional eGFR calculator available at: http://www.SpeedDate/multiple_crcl_2011.htm Performed By: #### H IVCMB, PHEP #### [facility] [address] [place] [address] Lieutenant Firefighter: Dom Fowler MD #### CP #### [facility] [address] [place] [address] Lieutenant Firefighter: Shakeel Graham MD Albumin [Mass/Vol] 3.4 g/dL Low 3.5-5.2 [facility] Comment on above: Performed By: #### H IVCMB, PHEP #### [address] [address] Lieutenant Firefighter: Dom Fowler MD #### CP #### [facility] [address] [place] [address] [place] [address] Lieutenant Firefighter: Shakeel Graham MD Albumin/Globulin [Mass ratio] 1.5 {ratio} Normal 1.0-2.5 [facility] Comment on above: Performed By: #### H IVCMB, PHEP #### [address] [address] Lieutenant Firefighter: Dom Fowler MD #### CP #### [facility] [address] [place] [address] Lieutenant Firefighter: Shakeel Graham MD Alkaline Phos 40 U/L Normal 35-104 [facility] Comment on above: Performed By: #### H IVCMB, PHEP #### [address] [address] Lieutenant Firefighter: Dom Fowler MD #### CP #### [facility] [address] [place] [id number] Lieutenant Firefighter: Shakeel Graham MD ALT [Catalytic activity/Vol] 12 U/L Normal 5-33 [facility] Comment on above: Performed By: #### H IVCMB, PHEP #### [facility] [address] [place] [address] Lieutenant Firefighter: Dom Fowler MD #### CP #### [facility] [address] [place] [id number] Lieutenant Firefighter: Shakeel Graham MD Anion gap [Moles/Vol] 9 mmol/L Normal 9-17 [facility] Comment on above: Performed By: #### H IVCMB, PHEP #### [address] [address] Lieutenant Firefighter: Dom Fowler MD #### CP #### [facility] [address] [place] [id number] Lieutenant Firefighter: Shakeel Graham MD AST [Catalytic activity/Vol] 12 U/L Normal <32 [facility] Comment on above: Performed By: #### H IVCMB, PHEP #### [address] [address] Lieutenant Firefighter: Dom Fowler MD #### CP #### [facility] [address] [place] [id number] Lieutenant Firefighter: Shakeel Graham MD BUN/CRE Ratio 26 High 9-20 [facility] Comment on above: Performed By: #### H IVCMB, PHEP #### [address] [address] Lieutenant Firefighter: Dom Fowler MD #### CP #### [facility] [address] [place] [id number] Lieutenant Firefighter: Shakeel Graham MD Calcium [Mass/Vol] 9.3 mg/dL Normal 8.6-10.4 [facility] Comment on above: Performed By: #### H IVCMB, PHEP #### [address] [address] Lieutenant Firefighter: Dom Fowler MD #### CP #### [facility] [address] [place] [address] [address] [place], [place] [id number] Lieutenant Firefighter: Shakeel Graham MD Chloride [Moles/Vol] 109 mmol/L High 98-107 [facility] Comment on above: Performed By: #### H IVCMB, PHEP #### [address] [address] Lieutenant Firefighter: Dom Fowler MD #### CP #### [address] [place] [id number] Lieutenant Firefighter: Shakeel Graham MD CO2 [Moles/Vol] 26 mmol/L Normal 20-31 [facility] Comment on above: Performed By: #### H IVCMB, PHEP #### [address] [address] Lieutenant Firefighter: Dom Fowler MD #### CP #### [address] [place] [id number] Lieutenant Firefighter: Shakeel Graham MD Creatinine [Mass/Vol] 0.57 mg/dL Normal 0.50-0.90 [facility] Comment on above: Performed By: #### H IVCMB, PHEP #### [address] [address] Lieutenant Firefighter: Dom Fowler MD #### CP #### [facility] [address] [place] [address] Dr. [place], [place] [id number] Lieutenant Firefighter: Shakeel Graham MD GFR, Amer >60 Normal >60 [facility] Comment on above: Performed By: #### H IVCMB, PHEP #### [address] [address] Lieutenant Firefighter: Dom Fowler MD #### CP #### [facility] [address] [place], [place] [id number] Lieutenant Firefighter: Shakeel Graham MD GFR,non Amer >60 Normal >60 [facility] Comment on above: Performed By: #### H IVCMB, PHEP #### [address] [address] Lieutenant Firefighter: Dom Fowler MD #### CP #### [address] [place], [place] [id number] Lieutenant Firefighter: Shakeel Graham MD Glucose [Mass/Vol] 92 mg/dL Normal 70-99 [facility] Comment on above: Performed By: #### H IVCMB, PHEP #### [address] [address] Lieutenant Firefighter: Dom Fowler MD #### CP #### [address] [place], [place] [id number] Lieutenant Firefighter: Shakeel Graham MD Potassium [Moles/Vol] 3.8 mmol/L Normal 3.7-5.3 [facility] Comment on above: Performed By: #### H IVCMB, PHEP #### [address] [address] Lieutenant Firefighter: Dom Fowler MD #### CP #### [facility] [address] [place] [address] Dr. [place], [place] [id number] Lieutenant Firefighter: Shakeel Graham MD Protein [Mass/Vol] 5.7 g/dL Low 6.4-8.3 [facility] Comment on above: Performed By: #### H IVCMB, PHEP #### [address] [address] Lieutenant Firefighter: Dom Fowler MD #### CP #### [address] [place] [address] Lieutenant Firefighter: Shakeel Graham MD Sodium [Moles/Vol] 144 mmol/L Normal 135-144 [facility] Comment on above: Performed By: #### H IVCMB, PHEP #### [address] [address] Lieutenant Firefighter: Dom Fowler MD #### CP #### [address] [place] [address] Lieutenant Firefighter: Shakeel Graham MD Staging: Normal [facility] Comment on above: Result Comment: Stag e 1: Some kidney damage normal GFR Stage 2: Mild kidney damage GFR 60-89 Stage 3: Moderate kidney damage GFR 30-59 Stage 4: Severe kidney damage GFR 15-29 Stage 5: Severe kidney damage GFR <15 ESRD - chronic treatment by dialysis or transplant Performed By: #### H IVCMB, PHEP #### [address] [address] Lieutenant Firefighter: Dom Fowler MD #### CP #### [address] [place] [address] Lieutenant Firefighter: Shakeel Graham MD Urea nitrogen [Mass/Vol] 15 mg/dL Normal 6-20 [facility] Comment on above: Performed By: #### H IVCMB, PHEP #### [address] [address] Lieutenant Firefighter: Dom Fowler MD #### CP #### [address] [place] [address] Lieutenant Firefighter: Shakeel Graham MD [facility] 04-26-2020 Albumin [Mass/Vol] 3.4 g/dL Low 3.5 - 5.2 g/dL [place], [place] Albumin/Globulin [Mass ratio] 1.5 {ratio} [place], [place] ALP [Catalytic activity/Vol] 40 U/L 35 - 104 U/L [place] ALT [Catalytic activity/Vol] 12 U/L 5 - 33 U/L [place] Anion gap [Moles/Vol] 9 mmol/L 9 - 17 mmol/L [place] AST [Catalytic activity/Vol] 12 U/L <32 [place] Bilirubin Ql (U) <0.10 Low 0.3 - 1.2 mg/dL [place], [place] Bun/Cre Ratio 26 High [place], [place] Calcium [Mass/Vol] 9.3 mg/dL 8.6 - 10. 4 mg/dL [place] Chloride [Moles/Vol] 109 mmol/L High 98 - 107 mmol/L [place] CO2 [Moles/Vol] 26 mmol/L 20 - 31 mmol/L [place] Creatinine [Mass/Vol] 0.57 mg/dL 0.5 - 0.9 mg/dL [place] GFR >60 >60 mL/min [place], [place] GFR Non- >60 >60 mL/min [place] Glucose [Mass/Vol] 92 mg/dL 70 - 99 mg/dL [place] Interpretation and review of laboratory results Abnormal [place] Potassium [Moles/Vol] 3.8 mmol/L 3.7 - 5.3 mmol/L [place] Protein [Mass/Vol] 5.7 g/dL Low 6.4 - 8.3 g/dL [place] Sodium [Moles/Vol] 144 mmol/L 135 - 144 mmol/L [place] Urea nitrogen [Mass/Vol] 15 mg/dL 6 - 20 mg/dL [place] HCG Qualitative, Serumon hCG Qual Negative NEGATIVE [place] Comment on above: Specimens with hCG l evels near the threshold of the test (25 mIU/mL) may give a negative or indeterminate result. In such cases, another test should be performed with a new specimen in 48-72 hours. If early is suspected clinically in this setting, correlation with quantitative serum b-hCG level is suggested. [facility] has confirmed the use of plasma for this test. This has not been cleared or approved by the U.S. Food and Drug Administration. The FDA has determined that such clearance is not necessary. HCG Screen, Bloodon 04-26-20 20 HCG Qn Negative Normal NEG [facility] Comment on above: Result Comment: Spec imens with hCG levels near the threshold of the test (25 mIU/mL) may give a negative or indeterminate result. In such cases, another test should be performed with a new specimen in 48-72 hours. If early is suspected clinically in this setting, correlation with quantitative serum b-hCG level is suggested. [employer] has confirmed the use of plasma for this test. This has not been cleared or approved by the U.S. Food and Drug Administration. The FDA has determined that such clearance is not necessary. Performed By: #### H IVCMB, PHEP #### [facility] [address] [place], [place] [id number] Lieutenant Firefighter: Dom Fowler MD #### CP #### [address] [place] [address] Lieutenant Firefighter: Shakeel Graham MD HIV Ag/Abon 04-26-2020 HIV Ag/Ab NONREACTIVE Normal NR [facility] Comment on above: Result Comment: No l aboratory evidence of HIV infection. If acute HIV infection is suspected, consider testing for HIV-1 RNA. Performed By: #### H IVCMB, PHEP #### [facility] [address] [place] [address] Lieutenant Firefighter: Dom Fowler MD #### CP #### [facility] [address] [place] [address] Lieutenant Firefighter: Shakeel Graham MD HIV Screenon 04-26-2020 HIV Ag/Ab NONREACTIVE NONREACTIVE [place] Comment on above: No laboratory eviden ce of HIV infection. If acute HIV infection is suspected, consider testing for HIV-1 RNA. Hepatitis Acute [facility] 04-26 Hep A Ab,IgM NONREACTIVE Normal NR [facility] Comment on above: Performed By: #### H IVCMB, PHEP #### [facility] [address] [place] [address] Lieutenant Firefighter: Dom Fowler MD #### CP #### [facility] [address] [place] [address] [place] [address] Lieutenant Firefighter: Shakeel Graham MD Hep B Core Ab,IgM NONREACTIVE Normal [facility] Comment on above: Performed By: #### H IVCMB, PHEP #### [address] [address] Lieutenant Firefighter: Dom Fowler MD #### CP #### [address] [place], [place] [id number] Lieutenant Firefighter: Shakeel Graham MD Hep B Surf Ag NONREACTIVE Normal [facility] Comment on above: Performed By: #### H IVCMB, PHEP #### [facility] [address] [place] [address] Lieutenant Firefighter: Dom Fowler MD #### CP #### [address] [place] [address] Lieutenant Firefighter: Shakeel Graham MD Hep C Ab REACTIVE Abnormal NR [facility] Comment on above: Result Comment: The hepatitis [...] Performed By: #### H IVCMB, PHEP #### [facility] [address] [place] [address] Lieutenant Firefighter: Dom Fowler MD #### CP #### [facility] [address] [place] [address] Lieutenant Firefighter: Shakeel Graham MD Hepatitis Panel, Acuteon HAV IgM IA Qn (S) NONREACTIVE NONREACTIVE [place] Hep B Core Ab, IgM NONREACTIVE NONREACTIVE [place] Hepatitis B Surface Ag NONREACTIVE NONREACTIVE [place] Hepatitis C Ab REACTIVE Abnormal NONREACTIVE [place] Comment on above: The hepatitis C [...] Interpretation and review of laboratory results Abnormal [place] Metabolic Panelon 04-26-2020 GFR/1.73 sq M predicted among non-blacks MDRD (S/P/Bld) [Vol rate/Area] [place] Comment on above: Stage 1: Some [...] body mass. Additional eGFR calculator available at: http://www.OrganizedWisdom.Epoque/multiple_crcl_2012.htm Microscopic Urinalysison Amorphous, UA NOT REPORTED None [place], [place] Bacteria, UA NOT REPORTED None [place], [place] Casts UA NOT REPORTED /LPF [place] Crystals, UA 5 TO 10 Abnormal None /HPF [place] Crystals, UA CALCIUM OXALATE Abnormal None /HPF [place], [place] Epithelial Cells UA 0 TO 2 [place] Interpretation and review of laboratory results Abnormal [facility], [place] Mucus, UA TRACE Abnormal None [place] Other Observations UA NOT REPORTED NOT REQ. [place] RBC (U) [#/Vol] None [facility], [place] Renal Epithelial, UA NOT REPORTED 0 /HPF [facility], [place] Trichomonas, UA NOT REPORTED None [facility], [place] WBC, UA 0 TO 2 [facility], [place] Yeast, UA NOT REPORTED None [facility], [place] - [place] UA w/Reflex Cultureon 2019 Acetoacetic Acid,Ur Negative Normal NEG [facility] Comment on above: Performed By: #### H IVCMB, PHEP #### [address] [address] Lieutenant Firefighter: Dom Fowler MD #### CP #### [address] [place] [address] Lieutenant Firefighter: Shakeel Graham MD Bilirubin, SemiQt,Ur Negative Normal NEG [facility] Comment on above: Performed By: #### H IVCMB, PHEP #### [address] [address] Lieutenant Firefighter: Dom Fowler MD #### CP #### [address] [place] [address] Lieutenant Firefighter: Shakeel Graham MD Color (U) YELLOW Normal [facility] Comment on above: Performed By: #### H IVCMB, PHEP #### [address] [address] Lieutenant Firefighter: Dom Fowler MD #### CP #### [address] [place] [address] Lieutenant Firefighter: Shakeel Graham MD Glucose Ql (U) Negative Normal NEG [facility] Comment on above: Performed By: #### H IVCMB, PHEP #### [address] [address] Lieutenant Firefighter: Dom Fowler MD #### CP #### [facility] [address] [place] [address] Dr. [place], [place] [id number] Lieutenant Firefighter: Shakeel Graham MD Hemoglobin, Ur Negative Normal NEG [facility] Comment on above: Performed By: #### H IVCMB, PHEP #### [address] [address] Lieutenant Firefighter: Dom Fowler MD #### CP #### [address] [place], [place] [id number] Lieutenant Firefighter: Shakeel Graham MD Leukocyte esterase Test strip Ql (U) Negative Normal NEG [facility] Comment on above: Performed By: #### H IVCMB, PHEP #### [address] [address] Lieutenant Firefighter: Dom Fowler MD #### CP #### [address] [place], [place] 3658983 Lieutenant Firefighter: Shakeel Graham MD Nitrite,Ur Negative Normal NEG [facility] Comment on above: Performed By: #### H IVCMB, PHEP #### [address] [address] Lieutenant Firefighter: Dom Fowler MD #### CP #### [address] [place], [place] 7463983 Lieutenant Firefighter: Shakeel Graham MD pH (U) 6.5 [pH] Normal 5.0-9.0 [facility] Comment on above: Performed By: #### H IVCMB, PHEP #### [address] [address] Lieutenant Firefighter: Dom Fowler MD #### CP #### [facility] [address] [place] [address] [place] [address] Lieutenant Firefighter: Shakeel Graham MD Protein Ql (U) Negative Normal NEG [facility] Comment on above: Performed By: #### H IVCMB, PHEP #### [facility] [address] [place] [address] Lieutenant Firefighter: Dom Fowler MD #### CP #### [address] [place] [address] Lieutenant Firefighter: Shakeel Graham MD Specific gravity (U) [Rel density] 1.025 High 1.010-1.020 [facility] Comment on above: Performed By: #### H IVCMB, PHEP #### [address] [address] Lieutenant Firefighter: Dom Fowler MD #### CP #### [address] [place], [place] [id number] Lieutenant Firefighter: Shakeel Graham MD Turbidity CLEAR Normal CLEAR [facility] Comment on above: Performed By: #### H IVCMB, PHEP #### [address] [address] Lieutenant Firefighter: Dom Fowler MD #### CP #### [address] [place] [address] Lieutenant Firefighter: Shakeel Graham MD Urobilinogen,Ur Normal Normal NORM [facility] Comment on above: Performed By: #### H IVCMB, PHEP #### [address] [address] Lieutenant Firefighter: Dom Fowler MD #### CP #### [address] [place] [address] Lieutenant Firefighter: Shakeel Graham MD Comment NOT REPORTED Normal [facility] Comment on above: Performed By: #### H IVCMB, PHEP #### [address] [place] [address] Lieutenant Firefighter: Dom Fowler MD #### CP #### [facility] [address] [place] [address] [place] [address] Lieutenant Firefighter: Shakeel Graham MD Urinalysis Reflex to Culture on 04-26-2020 Bilirubin Urine Negative NEGATIVE [facility] [place], [place] Color, UA YELLOW YELLOW [facility], [place] Glucose, Ur Negative NEGATIVE [facility], [place] Interpretation and review of laboratory results Abnormal [place] Ketones Ql (U) Negative NEGATIVE [facility], [place] Leukocyte esterase Test strip Ql (U) Negative NEGATIVE [facility], [place] Nitrite, Urine Negative NEGATIVE [facility], [place] pH, UA 6.5 [place], [place] Protein (U) [Mass/Vol] Negative NEGATIVE [facility], [place] Specific [place], UA 1.025 High [facility], [place] Turbidity UA CLEAR CLEAR [place] Urinalysis Comments NOT REPORTED [facility], [place] Urine Hgb Negative NEGATIVE [facility], [place] Urobilinogen, Urine Normal Normal [place] Urinalysis,Microon 0 ----- Normal [facility] Comment on above: Performed By: #### H IVCMB, PHEP #### [address] [address] Lieutenant Firefighter: Dom Fowler MD #### CP #### [facility] [address] [place] [address] [place] [address] Lieutenant Firefighter: Shakeel Graham MD Crystals LM Nom (Urine sed) CALCIUM OXALATE Abnormal NONE [facility] Comment on above: Result Comment: 5 TO 10 Performed By: #### H IVCMB, PHEP #### [address] [place] [address] Lieutenant Firefighter: Dom Fowler MD #### CP #### [address] [place] [address] Lieutenant Firefighter: Shakeel Graham MD Epithelial cells LM.HPF (Urine sed) [#/Area] 0 TO 2 Normal 0-25 [facility] Comment on above: Performed By: #### H IVCMB, PHEP #### [address] [address] Lieutenant Firefighter: Dom Fowler MD #### CP #### [address] [place] [id number] Lieutenant Firefighter: Shakeel Graham MD Mucus Strands TRACE Abnormal NONE [facility] Comment on above: Performed By: #### H IVCMB, PHEP #### [address] [address] Lieutenant Firefighter: Dom Fowler MD #### CP #### [address] [place] [address] Lieutenant Firefighter: Shakeel Graham MD RBC (U) [#/Vol] None Normal 0-2 [facility] Comment on above: Performed By: #### H IVCMB, PHEP #### [address] [address] Lieutenant Firefighter: Dom Fowler MD #### CP #### [address] [place] [id number] ( Lieutenant Firefighter: Shakeel Graham MD WBC (U) [#/Vol] 0 TO 2 Normal 0-5 [facility] Comment on above: Performed By: #### H IVCMB, PHEP #### [address] [address] Lieutenant Firefighter: Dom Fowler MD #### CP #### [address] [place], [place] 9688683 Lieutenant Firefighter: Shakeel Graham MD Amorphous sediment LM Ql (Urine sed) NOT REPORTED Normal NONE [facility] Comment on above: Performed By: #### H IVCMB, PHEP #### [facility] [address] [place] [address] Lieutenant Firefighter: Dom Fowler MD #### CP #### [facility] [address] [place] [address] [place] [address] Lieutenant Firefighter: Shakeel Graham MD Bacteria LM.HPF (Urine sed) [#/Area] NOT REPORTED Normal NONE [facility] Comment on above: Performed By: #### H IVCMB, PHEP #### [address] [address] Lieutenant Firefighter: Dom Fowler MD #### CP #### [address] [place] [address] Lieutenant Firefighter: Shakeel Graham MD Casts LM.LPF (Urine sed) [#/Area] NOT REPORTED Normal [facility] Comment on above: Performed By: #### H IVCMB, PHEP #### [address] [address] Lieutenant Firefighter: Dom Fowler MD #### CP #### [address] [place] [address] Lieutenant Firefighter: Shakeel Graham MD Epithelial, Renal NOT REPORTED Normal 0 [facility] Comment on above: Performed By: #### H IVCMB, PHEP #### [address] [address] Lieutenant Firefighter: Dom Fowler MD #### CP #### [address] [place] [address] Lieutenant Firefighter: Shakeel Graham MD Other Observations NOT REPORTED Normal NREQ [facility] Comment on above: Performed By: #### H IVCMB, PHEP #### [address] [address] Lieutenant Firefighter: Dom Fowler MD #### CP #### [facility] [address] [place] [id number] Lieutenant Firefighter: Shakeel Graham MD Trichomonas NOT REPORTED Normal NONE [facility] Comment on above: Performed By: #### H IVCMB, PHEP #### [facility] [address] [place] [address] Lieutenant Firefighter: Dom Fowler MD #### CP #### [facility] [address] [place] [id number] Lieutenant Firefighter: Shakeel Graham MD Yeast LM Ql (Urine sed) NOT REPORTED Normal NONE [facility] Comment on above: Performed By: #### H IVCMB, PHEP #### [address] [place] [address] Lieutenant Firefighter: Dom Fowler MD #### CP #### [facility] [address] [place] [address] Dr. [place] [id number] Lieutenant Firefighter: Shakeel Graham MD ED Clinical Summaryon 2019 ED Clinical Summary [address] [address] ED Clinical Summary Person Information Name: Kathryn Ervin/[facility] Age: 25 Years : 1995 Sex: Female PCP: Marital Status: Single Phone: Race: White Ethnicity: Not or Language: [place] Visit Reason: Drug withdrawal; Drug withdrawal Acuity: 3 Enc Type: Emergency Med Service: Emergency Medicine Arrival: 03/16/2020 20:10:45 Discharge: 03/17/2020 02:12:00 LOS: 000 06:02 Checkin: 03/16/2020 20:10:45 Checkout: 03/17/2020 02:12:00 Dispo Type: Home or Self Care Address: [address] [place] [id number] Provider Notes: Diagnosis: 1:Affective disorder; 2:Drug usage [...] range between ( 27.2 and 40.8 ) Stark Auto: 11.4 % -- Normal range between [...] range between ( 36.0 and 46.0 ) Stark Absolute: 1.5 x10 MCH: 27.4 pg -- [...] 03/16/2020 20:20:41 Follow up: With: Address: When: [facility] [place], [place] Within 1 to 2 days Discharge Orders: Discharge Patient 03/17/20 1:45:00 EDT, Discharge to Home, Self Patient Education Information: Understanding Methamphetamine Abuse and Addiction; Treating Affective (Mood) Disorders [facility] Poison Help line: . [facility] Mental Health Hotline: [place] Tobacco Quit Line: [place], [place]) [address]: [phone] [place], [place]) [address]: [phone] [facility] [address] [place], [place]: [phone] Normal [facility] hCG Quantitativeon 0 Beta hCG Qnt 1.7 mIU/mL Normal 0.0-4.9 [facility] Comment on above: Result Comment: 0.0 - 4.9 Negative for 5.0 - 25.0 Indeterminant for : Suggest repeat in 72 hours. >25.0 Positive for Performed By: #### H CG ####[place] [address] .UA Microscp Aon 03-16-2020 UA Hyline Cast Qual >20 Abnormal Negative [facility] Comment on above: Performed By: #### C [id number] ####[place] [id number] UA Mucus Present Abnormal Absent [facility] Comment on above: Performed By: #### C [id number] ####[place] [id number] UA RBC Quant 12 /HPF High 0-5 [facility] Comment on above: Performed By: #### C [id number] ####[address] [address] UA Squepi Cells Quant 6 /HPF Normal 0-29 [facility] Comment on above: Performed By: #### C [id number] ####[address] [address] UA WBC Quant 7 /HPF High 0-5 [facility] Comment on above: Performed By: #### C [id number] ####[address] [address] .eGFRon 03-16-2020 eGFR AA 52 mL/min/1.73m? Low >=60 [facility] Comment on above: Result Comment: Resu lt = 0-14.9 mL/min/1.73 m2 Kidney failure or Dialysis Result = 15-29 mL/min/1.73 m2 Severe decrease in GFR Result = 30-59 mL/min/1.73 m2 Moderate decrease in GFR Result >= 60 mL/min/1.73 m2 Normal or increased GFR Performed By: #### E GFR #### [address] [address] eGFR Non-AA 43 mL/min/1.73m? Low >=60 [facility] Comment on above: Result Comment: Resu lt [...] dosing. Performed By: #### E GFR #### [address] [address] CBC w/ Diffon 03-16-2020 Erythrocyte distribution width (RBC) [Ratio] 15.9 % High 11.6-14.8 [facility] Comment on above: Performed By: #### C BC #### [address] [address] Hematocrit (Bld) [Volume fraction] 37.5 % Normal 36.0-46.0 [facility] Comment on above: Performed By: #### C BC #### [address] [address] Hemoglobin (Bld) [Mass/Vol] 12.5 g/dL Normal 12.0-16.0 [facility] Comment on above: Performed By: #### C BC #### [address] [address] MCH (RBC) [Entitic mass] 27.4 pg Normal 27.0-35.0 [facility] Comment on above: Performed By: #### C BC #### [address] [address] MCHC (RBC) [Mass/Vol] 33.2 % Normal 31.0-37.0 [facility] Comment on above: Performed By: #### C BC #### [address] [address] MCV (RBC) [Entitic vol] 82.4 fL Normal 80.0-100.0 [facility] Comment on above: Performed By: #### C BC #### [address] [address] Platelet mean volume (Bld) [Entitic vol] 9.4 fL Normal 6.7-10.6 [facility] Comment on above: Performed By: #### C BC #### [address] [address] Platelets (Bld) [#/Vol] 307 x10*3/mcL Normal 150-350 [facility] Comment on above: Performed By: #### C BC #### [address] [address] RBC (Bld) [#/Vol] 4.55 x10*6/mcL Normal 3.80-5.20 [facility] Comment on above: Performed By: #### C BC #### [address] [address] WBC (Bld) [#/Vol] 12.9 x10*3/mcL High 4.5-11.0 [facility] Comment on above: Performed By: #### C BC #### [address] [address] CMPon 03-16-2020 Albumin [Mass/Vol] 5.2 g/dL High 3.2-4.9 [facility] Comment on above: Result Comment: [facility] Laboratory updated the methodology used for albumin testing on 04/24/18. Albumin measurement was performed using a bromcresol purple dye-binding assay. Performed By: #### C OMP #### [address] [address] Albumin/Globulin [Mass ratio] 1.5 {ratio} Normal 1.1-2.2 [facility] Comment on above: Performed By: #### C OMP #### [address] [address] Alk Phos 47 IU/L Normal 32-91 [facility] Comment on above: Performed By: #### C OMP #### [address] [address] ALT [Catalytic activity/Vol] 19 U/L Normal 14-54 [facility] Comment on above: Performed By: #### C OMP #### [address] [place] [address] Anion gap [Moles/Vol] 22 mmol/L High 7-17 [facility] Comment on above: Performed By: #### C OMP #### [address] [address] AST [Catalytic activity/Vol] 31 U/L Normal 15-41 [facility] Comment on above: Performed By: #### C OMP #### [address] [address] Bili Total 1.4 mg/dL High 0.3-1.2 [facility] Comment on above: Performed By: #### C OMP #### [address] [address] Calcium [Mass/Vol] 10.2 mg/dL Normal 8.5-10.3 [facility] Comment on above: Performed By: #### C OMP #### [address] [address] Chloride [Moles/Vol] 100 mmol/L Normal 98-110 [facility] Comment on above: Performed By: #### C OMP #### [address] [address] CO2 [Moles/Vol] 19 mmol/L Low 22-32 [facility] Comment on above: Performed By: #### C OMP #### [address] [address] Creatinine [Mass/Vol] 1.47 mg/dL High 0.44-1.03 [facility] Comment on above: Performed By: #### C OMP #### [address] [address] Glucose [Mass/Vol] 85 mg/dL Normal 70-99 [facility] Comment on above: Performed By: #### C OMP #### [address] [address] Potassium [Moles/Vol] 3.7 mmol/L Normal 3.4-4.8 [facility] Comment on above: Performed By: #### C OMP #### [address] [address] Protein [Mass/Vol] 8.7 g/dL High 6.5-8.1 [facility] Comment on above: Performed By: #### C OMP #### [address] [address] Sodium [Moles/Vol] 137 mmol/L Normal 133-142 [facility] Comment on above: Performed By: #### C OMP #### [address] [address] Urea nitrogen [Mass/Vol] 25 mg/dL Normal 8-26 [facility] Comment on above: Performed By: #### C OMP #### [address] [address] Urea nitrogen/Creatinine [Mass ratio] 17.0 mg/mg Normal 10.0-20.0 [facility] Comment on above: Performed By: #### C OMP #### [address] [address] CPKon 03-16-2020 Creatine Phosphokinase 439 IU/L High 38-234 [facility] Comment on above: Performed By: #### C P #### [address] [address] Diff Autoon 03-16-2020 Baso Absolute 0.0 x10*3/mcL Normal 0.0-0.2 [facility] Comment on above: Performed By: #### . Automated Diff #### [address] [address] Basophils/100 WBC (Bld) 0.4 % Normal 0.0-1.5 [facility] Comment on above: Performed By: #### . Automated Diff #### [address] [address] Eos Absolute 0.0 x10*3/mcL Normal 0.0-0.4 [facility] Comment on above: Performed By: #### . Automated Diff #### [address] [address] Eosinophils/100 WBC (Bld) 0.1 % Normal 0.0-5.4 [facility] Comment on above: Performed By: #### . Automated Diff #### [address] [address] Lymphocytes (Bld) [#/Vol] 1.4 x10*3/mcL Normal 1.0-4.8 [facility] Comment on above: Performed By: #### . Automated Diff #### [address] [address] Lymphocytes/100 WBC (Bld) 10.8 % Low 27.2-40.8 [facility] Comment on above: Performed By: #### . Automated Diff #### [address] [address] Stark Absolute 1.5 x10*3/mcL High 0.1-1.1 [facility] Comment on above: Performed By: #### . Automated Diff #### [facility] [address] [place] [address] Monocytes/100 WBC (Bld) 11.4 % Normal 3.7-11.9 [facility] Comment on above: Performed By: #### . Automated Diff #### [facility] [address] [place] [address] Neutro Absolute 10.0 x10*3/mcL High 1.8-7.7 [facility] Comment on above: Performed By: #### . Automated Diff #### [facility] [address] [place] [address] Neutro Auto 77.3 % High 47.2-70.8 [facility] Comment on above: Performed By: #### . Automated Diff #### [address] [address] ED Note-Nursingon 03-16-2020 ED Note-Nursing Lab called about add ons Electronically signed by Barbara Holman 03/16/20 20:49 EDT Normal [facility] ED Note-Physicianon 03-16-20 ED Note-Physician [...] that she has residential set up at [facility] in [place], [place] but she has to detox first. [...] She was seen by Alonso, social media assistant who has arranged for her to go to [facility] tomorrow as patient is interested in treatment. Verbally contracted to safety and filled out a safety plan. Alonso with social work spoke with director of physical security, Jelena who will arrange for further follow-up when they arrive tomorrow. Family is agreeable with plan. Patient has good support. They will return if any changes of symptoms or concern. Silvia Castañeda scribing for and in the presence of Dr. Cornell. Scribe Attestation: The information in this document, created by the medical office scheduler for me, accurately reflects the services I [...] High Lymph Auto 03/16/20 20:39 10.8 Low Stark Auto 03/16/20 20:39 11.4 Eos Auto 03/16/20 20:39 0.1 Basophil Auto 03/16/20 20:39 0.4 Neutro Absolute 03/16/20 20:39 10.0 High Lymph Absolute 03/16/20 20:39 1.4 Stark Absolute 03/16/20 20:39 1.5 High Eos Absolute [...] DANIELLE, Lima Richards 03/17/2020 04:16 EDT Normal [facility] Ethanolon 03-16-2020 Ethanol [Mass/Vol] mg/dL Normal <=9 [facility] Comment on above: Result Comment: To c onvert mg/dL to g/dL, divide result by 1,000. Legal limit of intoxication is 80 mg/dL (0.08 g/dL). Performed By: #### A LC #### [address] [address] UA w Culture if Indon 2019 Color (U) Terri Normal [facility] Comment on above: Performed By: #### U CI #### [address] [address] Glucose (U) [Mass/Vol] Negative Normal Negative [facility] Comment on above: Performed By: #### U CI #### [address] [place] [address] Ketones Ql (U) 20 mg/dL Abnormal Negative [facility] Comment on above: Performed By: #### U CI #### [address] [place] [address] UA Blood Small Abnormal Negative [facility] Comment on above: Performed By: #### U CI #### [address] [place] [address] UA Clarity Cloudy Normal [facility] Comment on above: Performed By: #### U CI #### [address] [address] UA Leukocyte Esterase Trace Abnormal Negative [facility] Comment on above: Performed By: #### U CI #### [address] [place] [address] UA Nitrite Negative Normal Negative [facility] Comment on above: Performed By: #### U CI #### [address] [address] UA pH 5.0 Normal 4.5 - 7.8 [facility] Comment on above: Performed By: #### U CI #### [address] [address] UA Protein 100 mg/dL Abnormal Negative [facility] Comment on above: Performed By: #### U CI #### [address] [address] UA Source Clean Catch Normal [facility] Comment on above: Performed By: #### U CI #### [address] [address] UA Spec Grav 1.025 Normal 1.003-1.035 [facility] Comment on above: Performed By: #### U CI #### [address] [address] UA Urobilinogen 0.2 mg/dL Normal 0.2 - 1.0 [facility] Comment on above: Performed By: #### U CI #### [address] [address] Urobilinogen Qn (U) Small Abnormal Negative [facility] Comment on above: Performed By: #### U CI #### [address] [address] UDS Compon 03-16-2020 Creatinine [Mass/Vol] mg/dL Normal [facility] Comment on above: Performed By: #### C [id number] #### [address] [address] Ur Amph Scrn Positive Abnormal NEG = <1000 [facility] Comment on above: Result Comment: This unconfirmed positive screening result is to be used for medical treatment purposes only. Unconfirmed screening results must not be used for non-medical purposes. (e.g. employment testing, legal testing). Performed By: #### C [id number] #### [address] [address] Ur Anastasia Scrn Negative Normal NEG = <200 [facility] Comment on above: Performed By: #### C [id number] #### [facility] [address] [facility] [address] Ur Benzodia Scrn Negative Normal NEG = <200 [facility] Comment on above: Performed By: #### C [id number] #### [facility] [address] [place] [address] Ur Cannab Scrn Negative Normal NEG = <50 [facility] Comment on above: Performed By: #### C [id number] #### [facility] [address] [facility] [address] Ur Cocaine Scrn Negative Normal NEG = <300 [facility] Comment on above: Performed By: #### C [id number] #### [address] [place] [address] Ur Methadone Scn Negative Normal NEG = <300 [facility] Comment on above: Performed By: #### C [id number] #### [address] [place] [address] Ur Opiate Scrn Negative Normal NEG = <300 [facility] Comment on above: Performed By: #### C [id number] #### [facility] [address] [place] [address], [place] [address] Ur Oxy Screen Negative Normal NEG = <100 [facility] Comment on above: Performed By: #### C [id number] #### [address] [place] [address] Ur Oxy Scrn Qnt 54 ng/mL Normal <=99 [facility] Comment on above: Performed By: #### C [id number] #### [facility] [address] [place] [address] [place] [address] Ur PCP Scrn Negative Normal NEG = <25 [facility] Comment on above: Performed By: #### C [id number] #### [address] [place] [address] UA pH 5.0 Normal 4.5 - 7.8 [facility] Comment on above: Performed By: #### C [id number] #### [facility] [address] [place] [address] UA Spec Grav 1.024 Normal 1.003-1.035 [facility] Comment on above: Performed By: #### C [id number] #### [facility] [address] [place] [address] Chlamydia/GC DNA, Uron 11-23 Chlamydia Probe, Ur Negative Normal NEG [facility] Comment on above: Result Comment: CHLA MYDIA [...] Performed By: #### H IVCMB, PHEP #### [id number] [place], [place] [id number] Lieutenant Firefighter: Dom Fowler MD #### CP #### [facility] [address] [place] [address] Lieutenant Firefighter: Shakeel Graham MD Gonorrhea Probe, Ur Negative Normal NEG [facility] Comment on above: Result Comment: NEIS SERIA [...] Performed By: #### H IVCMB, PHEP #### [address] [place], [place] [id number] Lieutenant Firefighter: Dom Fowler MD #### CP #### [facility] [address] [place] [address] Lieutenant Firefighter: Shakeel Graham MD Cult,Urineon 11-22-2019 Cult,Urine Specimen Description .VOIDED URINE Special Requests NOT REPORTED Culture NO SIGNIFICANT GROWTH Report Status FINAL 11/22/2019 Normal [facility] Comment on above: Performed By: #### H IVCMB, PHEP #### [facility] [address] [place] [address] Lieutenant Firefighter: Dom Fowler MD #### CP #### [facility] [address] [place] [address] Lieutenant Firefighter: Shakeel Graham MD HIV Ag/Abon 11-21-2019 HIV Ag/Ab NONREACTIVE Normal [facility] Comment on above: Result Comment: No l aboratory evidence of HIV infection. If acute HIV infection is suspected, consider testing for HIV-1 RNA. Performed By: #### H IVCMB, PHEP #### [address] [address] Lieutenant Firefighter: Dom Fowler MD #### CP #### [facility] [address] [place] [address] Lieutenant Firefighter: Shakeel Graham MD HIV Screenon 11-21-2019 HIV Ag/Ab NONREACTIVE NONREACTIVE [place], [place] Comment on above: No laboratory eviden ce of HIV infection. If acute HIV infection is suspected, consider testing for HIV-1 RNA. Hep C Abon 11-21-2019 Hep C Ab REACTIVE Abnormal NR [facility] Comment on above: Result Comment: The hepatitis [...] #### H IVCMB, PHEP #### [facility] [place] [address] Lieutenant Firefighter: Dom Fowler MD #### CP #### [facility] [address] [place] [address] [place] [address] Lieutenant Firefighter: Shakeel Graham MD Profileon 0 Hep B Surf Ag NONREACTIVE Normal NR [facility] Comment on above: Performed By: #### H IVCMB, PHEP #### [address] [address] Lieutenant Firefighter: Dom Fowler MD #### CP #### [address] [place] [address] Lieutenant Firefighter: Shakeel Graham MD T.pallidum Ab Screen NONREACTIVE Normal NR [facility] Comment on above: Result Comment: T. pallidum antibodies are not detected. There is no serological evidence of infection with T. pallidum (early primary syphilis cannot be excluded). Retest in 2-4 weeks if syphilis is clinically suspect. Performed By: #### H IVCMB, PHEP #### [address] [address] Lieutenant Firefighter: Dom Fowler MD #### CP #### [address] [place], [place] 8[address] Lieutenant Firefighter: Shakeel Graham MD Rubella Ab, IgG 323.1 IU/mL Normal [facility] Comment on above: Result Comment: REFERENCE RANGE: <5.0 NON-REACTIVE (non-immune) 5.0 TO 9.9 EQUIVOCAL >=10.0 REACTIVE (immune) Performed By: #### H IVCMB, PHEP #### [address] [address] Lieutenant Firefighter: Dom Fowler MD #### CP #### [address] [place], [place] 3185983 Lieutenant Firefighter: Shakeel Graham MD HCG, Quanton 11-20-2019 HCG, Quant 15173 IU/L High <5 [facility] Comment on above: Result Comment: Non-preg premeno [...] #### H IVCMB, PHEP #### [facility] [address] [place] [address] Lieutenant Firefighter: Dom Fowler MD #### CP #### [facility] [address] [place] [address] Lieutenant Firefighter: Shakeel Graham MD HCG, Quantitative, on 11-20-2019 hCG Quant [id number] High <5 IU/L [place], [place] Comment on above: Non-preg premeno <=5 Postmeno <=8 Male <=3 If HCG results do not concur with clinical observations, additional testing to confirm results is recommended. Elevated results not associated with may be found in patients with other diseases such as tumors of the germ cells (testis, ovaries, etc.), bladder, pancreas, stomach, lungs, and liver. Interpretation and review of laboratory results Abnormal [place], [place] Hepatitis C Antibodyon 11-19 Hepatitis C Ab REACTIVE Abnormal NONREACTIVE [place], [place] Comment on above: The hepatitis C [...] Interpretation and review of laboratory results Abnormal [place], [place] TYPE AND SCREENon 0 11-20-2019 ABO/Rh Positive [place], [place] Profileon 0 Abs. Basophil 0.03 k/uL Normal 0.00-0.20 [facility] Comment on above: Performed By: #### H IVCMB, PHEP #### [facility] [address] [place] [address] Lieutenant Firefighter: Dom Fowler MD #### CP #### [facility] [address] [place] [address] [address] [place] [address] [id number] Lieutenant Firefighter: Shakeel Graham MD Abs.Imm.Granulocyte <0.03 Normal 0.00-0.30 [facility] Comment on above: Performed By: #### H IVCMB, PHEP #### [address] [address] Lieutenant Firefighter: Dom Fowler MD #### CP #### [facility] [address] [place] [address] [place] [address] Lieutenant Firefighter: Shakeel Graham MD Abs.Neutrophil (Seg) 2.95 k/uL Normal 1.50-8.10 [facility] Comment on above: Performed By: #### H IVCMB, PHEP #### [place] [address] Lieutenant Firefighter: Dom Fowler MD #### CP #### [facility] [address] [place] [address] [place] [address] Lieutenant Firefighter: Shakeel Graham MD Basophils/100 WBC (Bld) 1 % Normal 0-2 [facility] Comment on above: Performed By: #### H IVCMB, PHEP #### [place] [address] Lieutenant Firefighter: Dom Fowler MD #### CP #### [facility] [address] [place] [address] [place] [address] Lieutenant Firefighter: Shakeel Graham MD Eosinophils (Bld) [#/Vol] 0.09 10*3/uL Normal 0.00-0.44 [facility] Comment on above: Performed By: #### H IVCMB, PHEP #### [place] [address] Lieutenant Firefighter: Dom Fowler MD #### CP #### [address] [place], [place] 405[address]83 Lieutenant Firefighter: Shakeel Graham MD Eosinophils/100 WBC (Bld) 2 % Normal 1-4 [facility] Comment on above: Performed By: #### H IVCMB, PHEP #### [address] [id number] Lieutenant Firefighter: Dom Fowler MD #### CP #### [address] [place], [place] 9[address]1283 Lieutenant Firefighter: Shakeel Graham MD Erythrocyte distribution width (RBC) [Ratio] 14.0 % Normal 11.8-14.4 [facility] Comment on above: Performed By: #### H IVCMB, PHEP #### [address] [id number] Lieutenant Firefighter: Dom Fowler MD #### CP #### [address] [place] [id number] Lieutenant Firefighter: Shakeel Graham MD Hematocrit (Bld) [Volume fraction] 37.7 % Normal 36.3-47.1 [facility] Comment on above: Performed By: #### H IVCMB, PHEP #### [address] [address] Lieutenant Firefighter: Dom Fowler MD #### CP #### [address] [place], [place] [id number] Lieutenant Firefighter: Shakeel Graham MD Hemoglobin (Bld) [Mass/Vol] 11.8 g/dL Low 11.9-15.1 [facility] Comment on above: Performed By: #### H IVCMB, PHEP #### [address] [address] Lieutenant Firefighter: Dom Fowler MD #### CP #### [address] [place], [place] [id number] Lieutenant Firefighter: Shakeel Graham MD Immature granulocytes (Bld) [#/Vol] 0 % Normal 0 [facility] Comment on above: Performed By: #### H IVCMB, PHEP #### [address] [address] Lieutenant Firefighter: Dom Fowler MD #### CP #### [address] [place] [id number] Lieutenant Firefighter: Shakeel Graham MD Lymphocytes (Bld) [#/Vol] 1.50 10*3/uL Normal 1.10-3.70 [facility] Comment on above: Performed By: #### H IVCMB, PHEP #### [address] [address] Lieutenant Firefighter: Dom Fowler MD #### CP #### [address] [place] [id number] Lieutenant Firefighter: Shakeel Graham MD Lymphocytes/100 WBC (Bld) 30 % Normal 24-43 [facility] Comment on above: Performed By: #### H IVCMB, PHEP #### [address] [address] Lieutenant Firefighter: Dom Fowler MD #### CP #### [address] [place] [id number] Lieutenant Firefighter: Shakeel Graham MD MCH (RBC) [Entitic mass] 26.5 pg Normal 25.2-33.5 [facility] Comment on above: Performed By: #### H IVCMB, PHEP #### [address] [address] Lieutenant Firefighter: Dom Fowler MD #### CP #### [address] [place] [id number] Lieutenant Firefighter: Shakeel Graham MD MCHC (RBC) [Mass/Vol] 31.3 g/dL Normal 28.4-34.8 [facility] Comment on above: Performed By: #### H IVCMB, PHEP #### [address] [id number] Lieutenant Firefighter: Dom Fowler MD #### CP #### [address] [place] [id number] Lieutenant Firefighter: Shakeel Graham MD MCV (RBC) [Entitic vol] 84.5 fL Normal 82.6-102.9 [facility] Comment on above: Performed By: #### H IVCMB, PHEP #### [address] [id number] Lieutenant Firefighter: Dom Fowler MD #### CP #### [address] [place] [id number] Lieutenant Firefighter: Shakeel Graham MD Monocytes (Bld) [#/Vol] 0.37 10*3/uL Normal 0.10-1.20 [facility] Comment on above: Performed By: #### H IVCMB, PHEP #### [address] [id number] Lieutenant Firefighter: Dom Fowler MD #### CP #### [address] [place] [id number] Lieutenant Firefighter: Shakeel Graham MD Monocytes/100 WBC (Bld) 8 % Normal 3-12 [facility] Comment on above: Performed By: #### H IVCMB, PHEP #### [address] [address] Lieutenant Firefighter: Dom Fowler MD #### CP #### [address] [place] [address] Lieutenant Firefighter: Shakeel Graham MD Neutrophil (Seg) 59 % Normal 36-65 [facility] Comment on above: Performed By: #### H IVCMB, PHEP #### [address] [place] [address] Lieutenant Firefighter: Dom Fowler MD #### CP #### [facility] [address] [place], [place] 9[address]6083 Lieutenant Firefighter: Shakeel Graham MD NRBC Automated 0.0 per 100 WBC Normal 0.0 [facility] Comment on above: Performed By: #### H IVCMB, PHEP #### [address] [address] Lieutenant Firefighter: Dom Fowler MD #### CP #### [facility] [address] [place] [id number] Lieutenant Firefighter: Shakeel Graham MD Platelet mean volume (Bld) [Entitic vol] 11.2 fL Normal 8.1-13.5 [facility] Comment on above: Performed By: #### H IVCMB, PHEP #### [address] [address] Lieutenant Firefighter: Dom Fowler MD #### CP #### [facility] [address] [place] [id number] Lieutenant Firefighter: Shakeel Graham MD Platelets (Bld) [#/Vol] 254 10*3/uL Normal 138-453 [facility] Comment on above: Performed By: #### H IVCMB, PHEP #### [address] [address] Lieutenant Firefighter: Dom Fowler MD #### CP #### [facility] [address] [place], [place] [address] Lieutenant Firefighter: Shakeel Graham MD RBC (Bld) [#/Vol] 4.46 10*6/uL Normal 3.95-5.11 [facility] Comment on above: Performed By: #### H IVCMB, PHEP #### [facility] [address] [place] [address] Lieutenant Firefighter: Dom Fowler MD #### CP #### [facility] [address] [place] [address] Lieutenant Firefighter: Shakeel Graham MD WBC (Bld) [#/Vol] 5.0 10*3/uL Normal 3.5-11.3 [facility] Comment on above: Performed By: #### H IVCMB, PHEP #### [address] [address] Lieutenant Firefighter: Dom Fowler MD #### CP #### [facility] [address] [place] [address] [place] [address] Lieutenant Firefighter: Shakeel Graham MD Auto Diff Performed NOT REPORTED Normal [facility] Comment on above: Performed By: #### H IVCMB, PHEP #### [address] [address] Lieutenant Firefighter: Dom Fowler MD #### CP #### [address] [place] [address] Lieutenant Firefighter: Shakeel Graham MD Platelets (Bld) [#/Vol] NOT REPORTED Normal [facility] Comment on above: Performed By: #### H IVCMB, PHEP #### [address] [address] Lieutenant Firefighter: Dom Fowler MD #### CP #### [address] [place] [address] Lieutenant Firefighter: Shakeel Graham MD RBC morphology finding Nom (Bld) NOT REPORTED Normal [facility] Comment on above: Performed By: #### H IVCMB, PHEP #### [address] [address] Lieutenant Firefighter: Dom Fowler MD #### CP #### [facility] [address] [place], [place] [id number] Lieutenant Firefighter: Shakeel Graham MD WBC Morphology NOT REPORTED Normal [facility] Comment on above: Performed By: #### H IVCMB, PHEP #### [facility] [address] [place] [address] Lieutenant Firefighter: Dom Fowler MD #### CP #### [facility] [address] [place] [address] Dr. [place] [id number] Lieutenant Firefighter: Shakeel Graham MD Type + Scrnon 11-19 Type + Scrn Negative Normal [facility] Comment on above: Performed By: #### H IVCMB, PHEP #### [address] [address] Lieutenant Firefighter: Dom Fowler MD #### CP #### [address] [place] [id number] Lieutenant Firefighter: Shakeel Graham MD Toxicology [facility] Amphetamine(s),Ur Negative Normal NEG [facility] Comment on above: Performed By: #### H IVCMB, PHEP #### [address] [address] Lieutenant Firefighter: Dom Fowler MD #### CP #### [address] [place], [place] [id number] Lieutenant Firefighter: Shakeel Graham MD Barbiturate(s),Ur Negative Normal NEG [facility] Comment on above: Performed By: #### H IVCMB, PHEP #### [address] [address] Lieutenant Firefighter: Dom Fowler MD #### CP #### [address] [place] [address] Lieutenant Firefighter: Shakeel Graham MD Benzodiazepine(s) Negative Normal NEG [facility] Comment on above: Performed By: #### H IVCMB, PHEP #### [facility] [address] [place] [address] Lieutenant Firefighter: Dom Fowler MD #### CP #### [facility] [address] [place] [address] Dr. [place], [place] [id number] Lieutenant Firefighter: Shakeel Graham MD Buprenorphrine, Ur Negative Normal NEG [facility] Comment on above: Performed By: #### H IVCMB, PHEP #### [facility] [address] [place] [address] Lieutenant Firefighter: Dom Fowler MD #### CP #### [address] [place] [id number] Lieutenant Firefighter: Shakeel Graham MD Cannabinoid(s),Ur Negative Normal [facility] Comment on above: Performed By: #### H IVCMB, PHEP #### [facility] [address] [place] [address] Lieutenant Firefighter: Dom Fowler MD #### CP #### [address] [place], [place] [id number] Lieutenant Firefighter: Shakeel Graham MD Cocaine Metabolite Negative [facility] Comment on above: Performed By: #### H IVCMB, PHEP #### [facility] [address] [place] [address] Lieutenant Firefighter: Dom Fowler MD #### CP #### [facility] [address] [place] [address] Dr. [place], [place] [phone] Lieutenant Firefighter: Shakeel Graham MD Methadone Ql (U) Negative Normal NEG [facility] Comment on above: Performed By: #### H IVCMB, PHEP #### [address] [address] Lieutenant Firefighter: Dom Fowler MD #### CP #### [facility] [address] [place] [address] Dr. [place], [place] [id number] Lieutenant Firefighter: Shakeel Graham MD Methamphetamine, Ur Negative Normal NEG [facility] Comment on above: Performed By: #### H IVCMB, PHEP #### [facility] [address] [place] [address] Lieutenant Firefighter: Dom Fowler MD #### CP #### [address] [place], [place] [id number] Lieutenant Firefighter: Shakeel Graham MD Opiate(s), Ur Negative Normal NEG [facility] Comment on above: Performed By: #### H IVCMB, PHEP #### [address] [address] Lieutenant Firefighter: Dom Fowler MD #### CP #### [address] [place], [place] [id number] Lieutenant Firefighter: Shakeel Graham MD Oxycodone, Urine Negative Normal NEG [facility] Comment on above: Performed By: #### H IVCMB, PHEP #### [address] [address] Lieutenant Firefighter: Dom Fowler MD #### CP #### [address] [place], [place] [id number] Lieutenant Firefighter: Shakeel Graham MD Phencyclidine, Ur Negative Normal NEG [facility] Comment on above: Performed By: #### H IVCMB, PHEP #### [address] [address] Lieutenant Firefighter: Dom Fowler MD #### CP #### [address] [place], [place] [phone] Lieutenant Firefighter: Shakeel Graham MD Propoxyphene,Urine Negative Normal NEG [facility] Comment on above: Performed By: #### H IVCMB, PHEP #### [address] [address] Lieutenant Firefighter: Dom Fowler MD #### CP #### [facility] [address] [place] [address] Dr. [place], [place] [phone] Lieutenant Firefighter: Shakeel Graham MD Tricyclic antidepressants Screen Ql (U) Negative Normal NEG [facility] Comment on above: Result Comment: Drug screen results are to be used for medical purposes only. All positive results are unconfirmed. Testing for employment or legal uses should be sent to a reference laboratory for confirmation. Performed By: #### H IVCMB, PHEP #### [address] [address] Lieutenant Firefighter: Dom Fowler MD #### CP #### [address] [place] [address] Lieutenant Firefighter: Shakeel Graham MD Interpretive Info NOT REPORTED Normal [facility] Comment on above: Performed By: #### H IVCMB, PHEP #### [address] [address] Lieutenant Firefighter: Dom Fowler MD #### CP #### [address] [place], [place] [phone] Lieutenant Firefighter: Shakeel Graham MD MDMA, Urine NOT REPORTED Normal NEG [facility] Comment on above: Performed By: #### H IVCMB, PHEP #### [address] [address] Lieutenant Firefighter: Dom Fowler MD #### CP #### [address] [place] [address] Lieutenant Firefighter: Shakeel Graham MD Urine Drug Screen, Magda arizmendijudithon 11-20-2019 Amphetamine Screen, Ur Negative NEGATIVE [facility] [place] Barbiturate Screen, Ur Negative NEGATIVE [facility] [place] Benzodiazepine Screen, Urine Negative NEGATIVE [facility] [place] Buprenorphine Urine Negative NEGATIVE [facility] [place] Cannabinoid Scrn, Ur Negative NEGATIVE [facility] [place] [place] Cocaine Metabolite, Urine Negative NEGATIVE [facility] [place] MDMA, Urine NOT REPORTED NEGATIVE [facility] [place] Methadone Screen, Urine Negative NEGATIVE [facility] [place] Methamphetamine, Urine Negative NEGATIVE [facility] [place] Opiates, Urine Negative NEGATIVE [facility] [place] Oxycodone Screen, Ur Negative NEGATIVE [facility] [place] Phencyclidine, Urine Negative NEGATIVE [facility] [place] Propoxyphene, Urine Negative NEGATIVE [facility] [place] Test Information NOT REPORTED [facility] [place] Tricyclic Antidepressants, Urine Negative NEGATIVE [facility] [place] Comment on above: Drug screen results are to be used for medical purposes only. All positive results are unconfirmed. Testing for employment or legal uses should be sent to a reference laboratory for confirmation. Chlamydia/GC DNA, Uron 06-20 Chlamydia Probe, Ur Negative Normal NEG [facility] Comment on above: Result Comment: CHLA MYDIA [...] nucleic acid target. Performed By: #### U [facility] [place] #### [facility] [address] [place] [address] Lieutenant Firefighter: Dom Fowler MD Gonorrhea Probe, Ur Negative Normal NEG [facility] Comment on above: Result Comment: NEIS SERIA [...] target. Performed By: #### U CGP #### [address] [address] Lieutenant Firefighter: Dom Fowler MD Cult,Urineon 06-20-2019 Cult,Urine Specimen Description .CLEAN CATCH URINE Special Requests NOT REPORTED Culture NO SIGNIFICANT GROWTH Report Status FINAL 06/20/2019 Normal [facility] Comment on above: Performed By: #### H IVCMB, PHEP #### [address] [address] Lieutenant Firefighter: Dom Fowler MD #### CP #### [facility] [address] [place] [address] Lieutenant Firefighter: Shakeel Graham MD HIV Ag/Abon 06-20-2019 HIV Ag/Ab NONREACTIVE Normal [facility] Comment on above: Result Comment: No l aboratory evidence of HIV infection. If acute HIV infection is suspected, consider testing for HIV-1 RNA. Performed By: #### A HCV, HIVCMB #### [address] [address] Lieutenant Firefighter: Dom Fowler MD Hep C Abon 06-20-2019 Hep C Ab REACTIVE Abnormal [facility] Comment on above: Result Comment: [...] Performed By: #### A HCV, HIVCMB #### [address] [address] Lieutenant Firefighter: Dom Fowler MD Profileon 9 T.pallidum Ab Screen NONREACTIVE Normal [facility] Comment on above: Result Comment: T. pallidum antibodies are not detected. There is no serological evidence of infection with T. pallidum (early primary syphilis cannot be excluded). Retest in 2-4 weeks if syphilis is clinically suspect. Performed By: #### P RENAT #### [id number] [place] [address] Lieutenant Firefighter: Dom Fowler MD [facility] [address] [place] [address] Dr. [place], [place] [phone] Lieutenant Firefighter: Shakeel Graham MD Hep B Surf Ag NONREACTIVE Normal [facility] Comment on above: Performed By: #### P RENAT #### [address] [address] Lieutenant Firefighter: Dom Fowler MD [address] [place] [phone] Lieutenant Firefighter: Shakeel Graham MD Rubella Ab, IgG 286.1 IU/mL Normal [facility] Comment on above: Result Comment: REFERENCE RANGE: <5.0 NON-REACTIVE (non-immune) 5.0 TO 9.9 EQUIVOCAL >=10.0 REACTIVE (immune) Performed By: #### P RENAT #### [address] [address] Lieutenant Firefighter: Dom Fowler MD [address] [place], [facility]83 Lieutenant Firefighter: Shakeel Graham MD HCG, Quanton 06-19-2019 HCG, Quant 23241 IU/L High <5 [facility] Comment on above: Result Comment: Non-preg premeno <=5 Postmeno <=8 Male <=3 If HCG results do not concur with clinical observations, additional testing to confirm results is recommended. Elevated results not associated with may be found in patients with other diseases such as tumors of the germ cells (testis, ovaries, etc.), bladder, pancreas, stomach, lungs, and liver. Performed By: #### B HCG #### [address] Felix, [place] [id number] Lieutenant Firefighter: Shakeel Graham MD HCG, Quantitative, on 06-19-2019 hCG Quant 35054 High <5 IU/L [place], [place] Comment on above: Non-preg premeno <=5 Postmeno <=8 Male <=3 If HCG results do not concur with clinical observations, additional testing to confirm results is recommended. Elevated results not associated with may be found in patients with other diseases such as tumors of the germ cells (testis, ovaries, etc.), bladder, pancreas, stomach, lungs, and liver. Interpretation and review of laboratory results Abnormal [place], [place] HIV Screenon 06-19-2019 HIV Ag/Ab NONREACTIVE NONREACTIVE [place], [place] Comment on above: No laboratory eviden ce of HIV infection. If acute HIV infection is suspected, consider testing for HIV-1 RNA. Hepatitis C Antibodyon 06-19 Hepatitis C Ab REACTIVE Abnormal NONREACTIVE [place], [place] Comment on above: The hepatitis C [...] Interpretation and review of laboratory results Abnormal [place] PROFILE Ion 019 Basophils (Bld) [#/Vol] 10*3/uL [place] Basophils/100 WBC (Bld) 1 % 0 - 2 % [place] Differential Type NOT REPORTED [place] Eosinophils (Bld) [#/Vol] 0.09 10*3/uL [place] Eosinophils/100 WBC (Bld) 2 % 1 - 4 % [place] Erythrocyte distribution width (RBC) [Ratio] 15.7 % High 11.8 - 14.4 % [place] Hematocrit (Bld) [Volume fraction] 36.5 % 36.3 - 47.1 % [place] Hemoglobin (Bld) [Mass/Vol] 11.2 g/dL Low 11.9 - 15.1 g/dL [place] Hepatitis B Surface Ag NONREACTIVE NONREACTIVE [place] Immature granulocytes (Bld) [#/Vol] 0 % 0 [place] Immature granulocytes (Bld) [#/Vol] 10*3/uL [place] Interpretation and review of laboratory results Abnormal [place] Lymphocytes (Bld) [#/Vol] 1.98 10*3/uL [place] Lymphocytes/100 WBC (Bld) 46 % High 24 - 43 % [place] MCH (RBC) [Entitic mass] 25.6 pg 25.2 - 33.5 pg [place] MCHC (RBC) [Mass/Vol] 30.7 g/dL 28.4 - 34.8 g/dL [place] MCV (RBC) [Entitic vol] 83.3 fL 82.6 - 102.9 fL [place] Monocytes (Bld) [#/Vol] 0.37 10*3/uL [place] Monocytes/100 WBC (Bld) 9 % 3 - 12 % [place] Platelet mean volume (Bld) [Entitic vol] 11.6 fL 8.1 - 13.5 fL [place] Platelets (Bld) [#/Vol] NOT REPORTED [place] Platelets (Bld) [#/Vol] 196 10*3/uL [place] RBC (Bld) [#/Vol] 4.38 10*6/uL 3.95 - 5.1 1 m/uL [place] RBC morphology finding Nom (Bld) NOT REPORTED [place] Rubella virus IgG Ql (S) 286.1 IU/mL [place] Comment on above: REFERENCE RANGE: <5.0 NON-REACTIVE (non-immune) 5.0 TO 9.9 EQUIVOCAL >=10.0 REACTIVE (immune) Segmented neutrophils/100 WBC (Bld) 42 % 36 - 65 % [place] Segs Absolute 1.75 [place] T. pallidum, IgG NONREACTIVE NONREACTIVE [place] Comment on above: T. pallidum antibodies are not detected. There is no serological evidence of infection with T. pallidum (early primary syphilis cannot be excluded). Retest in 2-4 weeks if syphilis is clinically suspect. WBC (Bld) [#/Vol] 4.2 10*3/uL [place] WBC (Bld) [#/Vol] 0.0 10*3/uL 0.0 per 100 WBC [place], [place] WBC Morphology NOT REPORTED [place], [place] TYPE AND SCREENon 1 ABO/Rh Positive [place], [place] Profileon 9 Abs. Basophil <0.03 Normal 0.00-0.20 [facility] Comment on above: Performed By: #### P RENAT #### [address] [address] Lieutenant Firefighter: Dom Fowler MD [facility] [address] [place] [address] [place] [address] Lieutenant Firefighter: Shakeel Graham MD Abs.Imm.Granulocyte <0.03 Normal 0.00-0.30 [facility] Comment on above: Performed By: #### P RENAT #### [address] [address] Lieutenant Firefighter: Dom Fowler MD [facility] [address] [place] [address] [place] [address] Lieutenant Firefighter: Shakeel Graham MD Abs.Neutrophil (Seg) 1.75 k/uL Normal 1.50-8.10 [facility] Comment on above: Performed By: #### P RENAT #### [address] [address] Lieutenant Firefighter: Dom Fowler MD [facility] [address] [place] [address] [place] [address] Lieutenant Firefighter: Shakeel Graham MD Basophils/100 WBC (Bld) 1 % Normal 0-2 [facility] Comment on above: Performed By: #### P RENAT #### [address] [place] [address] Lieutenant Firefighter: Dom Fowler MD [address] Felix [facility]83 Lieutenant Firefighter: Shakeel Graham MD Eosinophils (Bld) [#/Vol] 0.09 10*3/uL Normal 0.00-0.44 [facility] Comment on above: Performed By: #### P RENAT #### [address] [address] Lieutenant Firefighter: Dom Fowler MD [address] [place] [address] Lieutenant Firefighter: Shakeel Graham MD Eosinophils/100 WBC (Bld) 2 % Normal 1-4 [facility] Comment on above: Performed By: #### P RENAT #### [address] [address] Lieutenant Firefighter: Dom Fowler MD [address] [place] [phone] Lieutenant Firefighter: Shakeel Graham MD Erythrocyte distribution width (RBC) [Ratio] 15.7 % High 11.8-14.4 [facility] Comment on above: Performed By: #### P RENAT #### [address] [address] Lieutenant Firefighter: Dom Fowler MD [address] [place] [address] Lieutenant Firefighter: Shakeel Graham MD Hematocrit (Bld) [Volume fraction] 36.5 % Normal 36.3-47.1 [facility] Comment on above: Performed By: #### P RENAT #### [address] [address] Lieutenant Firefighter: Dom Fowler MD [address] [place] [phone] Lieutenant Firefighter: Shakeel Graham MD Hemoglobin (Bld) [Mass/Vol] 11.2 g/dL Low 11.9-15.1 [facility] Comment on above: Performed By: #### P RENAT #### [address] [place] [address] Lieutenant Firefighter: Dom Fowler MD [facility] [address] [place] [address] Dr. [place] [phone] Lieutenant Firefighter: Shakeel Graham MD Immature granulocytes (Bld) [#/Vol] 0 % Normal 0 [facility] Comment on above: Performed By: #### P RENAT #### [address] [address] Lieutenant Firefighter: Dom Fowler MD [address] [place] [phone] Lieutenant Firefighter: Shaekel Graham MD Lymphocytes (Bld) [#/Vol] 1.98 10*3/uL Normal 1.10-3.70 [facility] Comment on above: Performed By: #### P RENAT #### [address] [address] Lieutenant Firefighter: Dom Fowler MD [address] [place] [phone] Lieutenant Firefighter: Shakeel Graham MD Lymphocytes/100 WBC (Bld) 46 % High 24-43 [facility] Comment on above: Performed By: #### P RENAT #### [address] [address] Lieutenant Firefighter: Dom Fowler MD [address] [place] [phone] Lieutenant Firefighter: Shakeel Graham MD MCH (RBC) [Entitic mass] 25.6 pg Normal 25.2-33.5 [facility] Comment on above: Performed By: #### P RENAT #### [address] [address] Lieutenant Firefighter: Dom Fowler MD [facility] [address] [place] [address] Dr. [place], [place] [phone] Lieutenant Firefighter: Shakeel Graham MD MCHC (RBC) [Mass/Vol] 30.7 g/dL Normal 28.4-34.8 [facility] Comment on above: Performed By: #### P RENAT #### [address] [id number] Lieutenant Firefighter: Dom Fowler MD [address] [place] [phone] Lieutenant Firefighter: Shakeel Graham MD MCV (RBC) [Entitic vol] 83.3 fL Normal 82.6-102.9 [facility] Comment on above: Performed By: #### P RENAT #### [address] [address] Lieutenant Firefighter: Dom Fowler MD [address] [place] [phone] Lieutenant Firefighter: Shakeel Graham MD Monocytes (Bld) [#/Vol] 0.37 10*3/uL Normal 0.10-1.20 [facility] Comment on above: Performed By: #### P RENAT #### [address] [address] Lieutenant Firefighter: Dom Fowler MD [address] [place] [phone] Lieutenant Firefighter: Shakeel Graham MD Monocytes/100 WBC (Bld) 9 % Normal 3-12 [facility] Comment on above: Performed By: #### P RENAT #### [address] [address] Lieutenant Firefighter: Dom Fowler MD [address] [place] [phone] Lieutenant Firefighter: Shakeel Graham MD Neutrophil (Seg) 42 % Normal 36-65 [facility] Comment on above: Performed By: #### P RENAT #### [address] [address] Lieutenant Firefighter: Dom Fowler MD [facility] [address] [place] [address] [place] [address] Lieutenant Firefighter: Shakeel Graham MD NRBC Automated 0.0 per 100 WBC Normal 0.0 [facility] Comment on above: Performed By: #### P RENAT #### [address] [address] Lieutenant Firefighter: Dom Fowler MD [facility] [address] [place] [address] [place] [address] Lieutenant Firefighter: Shakeel Graham MD Platelet mean volume (Bld) [Entitic vol] 11.6 fL Normal 8.1-13.5 [facility] Comment on above: Performed By: #### P RENAT #### [address] [address] Lieutenant Firefighter: Dom Fowler MD [facility] [address] [place] [address] [place] [address] Lieutenant Firefighter: Shakeel Graham MD Platelets (Bld) [#/Vol] 196 10*3/uL Normal 138-453 [facility] Comment on above: Performed By: #### P RENAT #### [address] [address] Lieutenant Firefighter: Dom Fowler MD [facility] [address] [place] [address] [place] [address] Lieutenant Firefighter: Shakeel Graham MD RBC (Bld) [#/Vol] 4.38 10*6/uL Normal 3.95-5.11 [facility] Comment on above: Performed By: #### P RENAT #### [address] [address] Lieutenant Firefighter: Dom Fowler MD [facility] [address] [place] [address] [place] [address] Lieutenant Firefighter: Shakele Graham MD WBC (Bld) [#/Vol] 4.2 10*3/uL Normal 3.5-11.3 [facility] Comment on above: Performed By: #### P RENAT #### [address] [address] Lieutenant Firefighter: Dom Fowler MD [address] [place] [address] Lieutenant Firefighter: Shakeel Graham MD Auto Diff Performed NOT REPORTED Normal [facility] Comment on above: Performed By: #### P RENAT #### [address] [address] Lieutenant Firefighter: Dom Fowler MD [address] [place] [address] Lieutenant Firefighter: Shakeel Graham MD Platelets (Bld) [#/Vol] NOT REPORTED Normal [facility] Comment on above: Performed By: #### P RENAT #### [address] [address] Lieutenant Firefighter: Dom Fowler MD [address] [place] [address] Lieutenant Firefighter: Shakeel Graham MD RBC morphology finding Nom (Bld) NOT REPORTED Normal [facility] Comment on above: Performed By: #### P RENAT #### [address] [address] Lieutenant Firefighter: Dom Fowler MD [address] [place] [address] Lieutenant Firefighter: Shakeel Graham MD WBC Morphology NOT REPORTED Normal [facility] Comment on above: Performed By: #### P RENAT #### [address] [address] Lieutenant Firefighter: Dom Fowler MD [facility] [address] [place], [place] [id number] Lieutenant Firefighter: Shakeel Graham MD Type + Scrnon 06-19 Type + Scrn Negative [facility] Comment on above: Performed By: #### P RTYS #### [facility] [address] [place], [place] [phone] Lieutenant Firefighter: Shakeel Graham MD Toxicology Scree, Urineon Amphetamine(s),Ur Negative Normal NEG [facility] Comment on above: Performed By: #### C PDAU #### [facility] [address] [place], [place] [id number] Lieutenant Firefighter: Shakeel Graham MD Barbiturate(s),Ur Negative Normal NEG [facility] Comment on above: Performed By: #### C PDAU #### [facility] [address] [place], [place] [id number] Lieutenant Firefighter: Shakeel Graham MD Benzodiazepine(s) Negative Normal [facility] Comment on above: Performed By: #### C PDAU #### [facility] [address] [place], [place] [id number] Lieutenant Firefighter: Shakeel Graham MD Buprenorphrine, Ur Negative Normal NEG [facility] Comment on above: Performed By: #### C PDAU #### [facility] [address] [place], [place] [id number] Lieutenant Firefighter: Shakeel Graham MD Cannabinoid(s),Ur Negative Normal NEG [facility] Comment on above: Performed By: #### C PDAU #### [facility] [address] [place], [place] 7323083 Lieutenant Firefighter: Shakeel Graham MD Cocaine Metabolite Negative Normal [facility] Comment on above: Performed By: #### C PDAU #### [facility] [address] [place], [place] [id number] Lieutenant Firefighter: Shakeel Graham MD Methadone Ql (U) Negative Normal NEG [facility] Comment on above: Performed By: #### C PDAU #### [facility] [address] [place] [address] Lieutenant Firefighter: Shakeel Graham MD Methamphetamine, Ur Negative Normal NEG [facility] Comment on above: Performed By: #### C PDAU #### [facility] [address] [place], [place] [id number] Lieutenant Firefighter: Shakeel Graham MD Opiate(s), Ur Negative Normal NEG [facility] Comment on above: Performed By: #### C PDAU #### [facility] [address] [place], [place] [id number] Lieutenant Firefighter: Shakeel Graham MD Oxycodone, Urine Negative Normal NEG [facility] Comment on above: Performed By: #### C PDAU #### [facility] [address] [place], [place] [phone] Lieutenant Firefighter: Shakeel Graham MD Phencyclidine, Ur Negative Normal NEG [facility] Comment on above: Performed By: #### C PDAU #### [facility] [address] [place], [place] [id number] Lieutenant Firefighter: Shakeel Graham MD Propoxyphene,Urine Negative Normal NEG [facility] Comment on above: Performed By: #### C PDAU #### [facility] [address] [place], [place] [id number] Lieutenant Firefighter: Shakeel Graham MD Tricyclic antidepressants Screen Ql (U) Positive Abnormal NEG [facility] Comment on above: Result Comment: Drug screen results are to be used for medical purposes only. All positive results are unconfirmed. Testing for employment or legal uses should be sent to a reference laboratory for confirmation. Performed By: #### C PDAU #### [facility] [address] [place] [address] Lieutenant Firefighter: Shakeel Graham MD Interpretive Info NOT REPORTED Normal [facility] Comment on above: Performed By: #### C PDAU #### [facility] [address] [place] [address] Lieutenant Firefighter: Shakeel Graham MD MDMA, Urine NOT REPORTED Normal NEG [facility] Comment on above: Performed By: #### C PDAU #### [facility] [address] [place] [address] Lieutenant Firefighter: Shakeel Graham MD Urine Drug Screen, [place] [...] [place], [place] MDMA, Urine NOT REPORTED NEGATIVE [facility] [place] Methadone Screen, [...] [place] Tricyclic Antidepressants, Urine Positive Abnormal NEGATIVE [facility] [place], [place] Comment on above: Drug screen results are to be used for medical purposes only. All positive results are unconfirmed. Testing for employment or legal uses should be sent to a reference laboratory for confirmation. HIV Ag/Abon 05-10-2019 HIV Ag/Ab NONREACTIVE Normal NR [facility] Comment on above: Result Comment: No l aboratory evidence of HIV infection. If acute HIV infection is suspected, consider testing for HIV-1 RNA. Performed By: #### H IVCMB, PHEP #### [facility] [employer] [address] [place] [address] Lieutenant Firefighter: Dom Fowler MD #### CP #### [facility] [address] [place] [address] [address]. [place], [place] [id number] Lieutenant Firefighter: Shakeel Graham MD Hepatitis Acute [facility] 05-10 Hep A Ab,IgM NONREACTIVE Normal [facility] Comment on above: Performed By: #### H IVCMB, PHEP #### [address] [address] Lieutenant Firefighter: Dom Fowler MD #### CP #### [address] [place], [place] [id number] Lieutenant Firefighter: Shakeel Graham MD Hep B Core Ab,IgM NONREACTIVE Normal [facility] Comment on above: Performed By: #### H IVCMB, PHEP #### [address] [address] Lieutenant Firefighter: Dom Fowler MD #### CP #### [facility] [address] [place] [address] Dr. [place], [place] [id number] Lieutenant Firefighter: Shakeel Graham MD Hep B Surf Ag NONREACTIVE Normal [facility] Comment on above: Performed By: #### H IVCMB, PHEP #### [address] [address] Lieutenant Firefighter: Dom Fowler MD #### CP #### [address] [place], [place] [id number] Lieutenant Firefighter: Shakeel Graham MD Hep C Ab REACTIVE Abnormal [facility] Comment on above: Result Comment: [...] Performed By: #### H IVCMB, PHEP #### [address] [address] Lieutenant Firefighter: Dom Fowler MD #### CP #### [address] [place], [place] [id number] Lieutenant Firefighter: Shakeel Graham MD Comp Metabolic Profon 2018 (cont.) Normal [facility] Comment on above: Result Comment: Aver age GFR for 20-29 years old: 116 mL/min/1.73sq m Chronic Kidney Disease: <60 mL/min/1.73sq m Kidney failure: <15 mL/min/1.73sq m eGFR calculated using average adult body mass. Additional eGFR calculator available at: http://www.SpeedDate/multiple_crcl_2012.htm Performed By: #### H IVCMB, PHEP #### [address] [address] Lieutenant Firefighter: Dom Fowler MD #### CP #### [facility] [address] [place] [address] Dr. [place], [place] [phone] Lieutenant Firefighter: Shakeel Graham MD Albumin [Mass/Vol] 4.3 g/dL Normal 3.5-5.2 [facility] Comment on above: Performed By: #### H IVCMB, PHEP #### [address] [address] Lieutenant Firefighter: Dom Fowler MD #### CP #### [facility] [address] [place] [address] Dr. [place], [place] [phone] Lieutenant Firefighter: Shakeel Graham MD Albumin/Globulin [Mass ratio] 1.4 {ratio} Normal 1.0-2.5 [facility] Comment on above: Performed By: #### H IVCMB, PHEP #### [address] [address] Lieutenant Firefighter: Dom Fowler MD #### CP #### [facility] [address] [place], [place] [id number] Lieutenant Firefighter: Shakeel Graham MD Alkaline Phos 50 U/L Normal 35-104 [facility] Comment on above: Performed By: #### H IVCMB, PHEP #### [facility] [address] [place] [address] Lieutenant Firefighter: Dom Fowler MD #### CP #### [facility] [address] [place] [address] Dr. [place], [place] [phone] Lieutenant Firefighter: Shakeel Graham MD ALT [Catalytic activity/Vol] 9 U/L Normal 5-33 [facility] Comment on above: Performed By: #### H IVCMB, PHEP #### [address] [address] Lieutenant Firefighter: Dom Fowler MD #### CP #### [address] [place], [place] [phone] Lieutenant Firefighter: Shakeel Graham MD Anion gap [Moles/Vol] 8 mmol/L Low 9-17 [facility] Comment on above: Performed By: #### H IVCMB, PHEP #### [address] [address] Lieutenant Firefighter: Dom Fowler MD #### CP #### [address] [place], [place] [phone] Lieutenant Firefighter: Shakeel Graham MD AST [Catalytic activity/Vol] 15 U/L Normal <32 [facility] Comment on above: Performed By: #### H IVCMB, PHEP #### [address] [address] Lieutenant Firefighter: Dom Fowler MD #### CP #### [address] [place], [place] [phone] Lieutenant Firefighter: Shakeel Graham MD Bilirubin Ql (U) 0.31 mg/dL Normal 0.3-1.2 [facility] Comment on above: Performed By: #### H IVCMB, PHEP #### [facility] [address] [place] [address] Lieutenant Firefighter: Dom Fowler MD #### CP #### [facility] [address] [place], [place] [id number] Lieutenant Firefighter: Shakeel Graham MD BUN/CRE Ratio 20 Normal 9-20 [facility] Comment on above: Performed By: #### H IVCMB, PHEP #### [address] [address] Lieutenant Firefighter: Dom Fowler MD #### CP #### [facility] [address] [place] [id number] Lieutenant Firefighter: Shakeel Graham MD Calcium [Mass/Vol] 9.4 mg/dL Normal 8.6-10.4 [facility] Comment on above: Performed By: #### H IVCMB, PHEP #### [address] [address] Lieutenant Firefighter: Dom Fowler MD #### CP #### [facility] [address] [place] [address] Dr. [place], [place] [phone] Lieutenant Firefighter: Shakeel Graham MD Chloride [Moles/Vol] 102 mmol/L Normal 98-107 [facility] Comment on above: Performed By: #### H IVCMB, PHEP #### [address] [address] Lieutenant Firefighter: Dom Fowler MD #### CP #### [facility] [address] [place], [place] [phone] Lieutenant Firefighter: Shakeel Graham MD CO2 [Moles/Vol] 28 mmol/L Normal 20-31 [facility] Comment on above: Performed By: #### H IVCMB, PHEP #### [address] [address] Lieutenant Firefighter: Dom Fowler MD #### CP #### [facility] [address] [place] [address] Lieutenant Firefighter: Shakeel Graham MD Creatinine [Mass/Vol] 0.92 mg/dL High 0.50-0.90 [facility] Comment on above: Performed By: #### H IVCMB, PHEP #### [address] [address] Lieutenant Firefighter: Dom Fowler MD #### CP #### [facility] [address] [place], [place] 2306183 Lieutenant Firefighter: Shakeel Graham MD GFR, Amer >60 Normal >60 [facility] Comment on above: Performed By: #### H IVCMB, PHEP #### [address] [address] Lieutenant Firefighter: Dom Fowler MD #### CP #### [facility] [address] [place] [address] Dr. [place], [place] [phone] Lieutenant Firefighter: Shakeel Graham MD GFR,non Amer >60 Normal >60 [facility] Comment on above: Performed By: #### H IVCMB, PHEP #### [address] [address] Lieutenant Firefighter: Dom Fowler MD #### CP #### [facility] [address] [place], [place] 7393783 Lieutenant Firefighter: Shakeel Graham MD Glucose [Mass/Vol] 91 mg/dL Normal 70-99 [facility] Comment on above: Performed By: #### H IVCMB, PHEP #### [address] [address] Lieutenant Firefighter: Dom Fowler MD #### CP #### [facility] [address] [place] [address] [place]. [place], [place] [phone] Lieutenant Firefighter: Shakeel Graham MD Potassium [Moles/Vol] 4.3 mmol/L Normal 3.7-5.3 [facility] Comment on above: Performed By: #### H IVCMB, PHEP #### [address] [address] Lieutenant Firefighter: Dom Fowler MD #### CP #### [facility] [address] [place] [address] Dr. [place], [place] [phone] Lieutenant Firefighter: Shakeel Graham MD Protein [Mass/Vol] 7.4 g/dL Normal 6.4-8.3 [facility] Comment on above: Performed By: #### H IVCMB, PHEP #### [address] [id number] Lieutenant Firefighter: Dom Fowler MD #### CP #### [facility] [address] [place] [address] [place], [place] [phone] Lieutenant Firefighter: Shakeel Graham MD Sodium [Moles/Vol] 138 mmol/L Normal 135-144 [facility] Comment on above: Performed By: #### H IVCMB, PHEP #### [address] [address] Lieutenant Firefighter: Dom Fowler MD #### CP #### [address] [place], [place] [phone] Lieutenant Firefighter: Shakeel Graham MD Staging: Normal [facility] Comment on above: Result Comment: Stag e 1: Some kidney damage normal GFR Stage 2: Mild kidney damage GFR 60-89 Stage 3: Moderate kidney damage GFR 30-59 Stage 4: Severe kidney damage GFR 15-29 Stage 5: Severe kidney damage GFR <15 ESRD - chronic treatment by dialysis or transplant Performed By: #### H IVCMB, PHEP #### [address] [place] [id number] Lieutenant Firefighter: Dom Fowler MD #### CP #### [facility] [address] [place] [address] Lieutenant Firefighter: Shakeel Graham MD Urea nitrogen [Mass/Vol] 18 mg/dL Normal 6-20 [facility] Comment on above: Performed By: #### H IVC, PHEP #### [facility] [address] [place], [place] [id number] Lieutenant Firefighter: Dom Fowler MD #### CP #### [facility] [address] [place] [address] Lieutenant Firefighter: Shakeel Graham MD Comprehensive Metabolic Pane [facility] 05-09-2019 Albumin [Mass/Vol] 4.3 g/dL 3.5 - 5.2 g/dL [place], [place] Albumin/Globulin [Mass ratio] 1.4 {ratio} [place], [place] ALP [Catalytic activity/Vol] 50 U/L 35 - 104 U/L [place] ALT [Catalytic activity/Vol] 9 U/L 5 - 33 U/L [place] Anion gap [Moles/Vol] 8 mmol/L Low 9 - 17 mmol/L [place] AST [Catalytic activity/Vol] 15 U/L <32 [place] Bilirubin Ql (U) 0.31 mg/dL 0.3 - 1.2 mg/dL [place], [place] Bun/Cre Ratio 20 [place], [place] Calcium [Mass/Vol] 9.4 mg/dL 8.6 - 10. 4 mg/dL [place] Chloride [Moles/Vol] 102 mmol/L 98 - 107 mmol/L [place] CO2 [Moles/Vol] 28 mmol/L 20 - 31 mmol/L [place] Creatinine [Mass/Vol] 0.92 mg/dL High 0.5 - 0.9 mg/dL [place] GFR >60 >60 mL/min [place], [place] GFR Non- >60 >60 mL/min [place] Glucose [Mass/Vol] 91 mg/dL 70 - 99 mg/dL [place] Interpretation and review of laboratory results Abnormal [place] Potassium [Moles/Vol] 4.3 mmol/L 3.7 - 5.3 mmol/L [place] Protein [Mass/Vol] 7.4 g/dL 6.4 - 8.3 g/dL [place], [place] Sodium [Moles/Vol] 138 mmol/L 135 - 144 mmol/L [place] Urea nitrogen [Mass/Vol] 18 mg/dL 6 - 20 mg/dL [place] Hepatitis Panel, Acuteon HAV IgM IA Qn (S) NONREACTIVE NONREACTIVE [place] Hep B Core Ab, IgM NONREACTIVE NONREACTIVE [place] Hepatitis B Surface Ag NONREACTIVE NONREACTIVE [place] Hepatitis C Ab REACTIVE Abnormal NONREACTIVE [place], [place] Comment on above: The hepatitis C [...] Interpretation and review of laboratory results Abnormal [place] Metabolic Panelon 05-09-2019 GFR/1.73 sq M predicted among non-blacks MDRD (S/P/Bld) [Vol rate/Area] [place], [place] Comment on above: Average GFR for 20-2 9 years old: 116 mL/min/1.73sq m Chronic Kidney Disease: <60 mL/min/1.73sq m Kidney failure: <15 mL/min/1.73sq m eGFR calculated using average adult body mass. Additional eGFR calculator available at: http://www.OrganizedWisdom.Epoque/multiple_crcl_2012.htm Stage 1: Some kidney damage normal GFR Stage 2: Mild kidney damage GFR 60-89 Stage 3: Moderate kidney damage GFR 30-59 Stage 4: Severe kidney damage GFR 15-29 Stage 5: Severe kidney damage GFR <15 ESRD - chronic treatment by dialysis or transplant Drug Scr, Abuse, Uron 2017 Amphetamine(s),Ur Positive Abnormal NEG [facility] Comment on above: Result Comment: (Pos itive cutoff 1000 ng/mL) Performed By: #### D AU ####[address] [address] Barbiturate(s),Ur Negative Normal NEG [facility] Comment on above: Result Comment: (Pos itive cutoff 200 ng/mL) Performed By: #### D AU ####[address] [address] Base excess Negative Normal NEG [facility] Comment on above: Result Comment: (Pos itive cutoff 300 ng/mL) Performed By: #### D AU ####[address] [address] Benzodiazepine(s) Negative Normal NEG [facility] Comment on above: Result Comment: (Pos itive cutoff 200 ng/mL) Performed By: #### D AU ####[address] [address] Cannabinoid(s),Ur Negative Normal NEG [facility] Comment on above: Result Comment: (Pos itive cutoff 50 ng/mL) Performed By: #### D AU ####[address] [address] Interpretive Info Assay provides medical screening only. The absence of expected drug(s) and/or Normal [facility] Comment on above: Result Comment: meta bolite(s) may indicate diluted or adulterated urine, limitations of testing or timing of collection.Testing for legal purposes should be confirmed by another method. To request confirmation of test result, please call the lab within 7 days of sample submission.Performed at [address] [place] [address] Performed By: #### D AU ####[address] [address] Opiate(s), Ur Negative Normal NEG [facility] Comment on above: Result Comment: (Pos itive cutoff 300 ng/mL) Performed By: #### D AU ####[address] [address] Oxycodone, Urine Negative Normal NEG [facility] Comment on above: Result Comment: (Pos itive cutoff 100 ng/mL) Performed By: #### D AU ####[address] [address] Phencyclidine, Ur Negative Normal NEG [facility] Comment on above: Result Comment: (Pos itive cutoff 25 ng/mL) Performed By: #### D AU ####[address] [address] Urine, methadone presence Negative Normal NEG [facility] Comment on above: Result Comment: (Pos itive cutoff 300 ng/mL) Performed By: #### D AU ####[address] [address] Buprenorphrine, Ur NOT REPORTED Normal NEG [facility] Comment on above: Performed By: #### D AU ####[address] [address] MDMA, Urine NOT REPORTED Normal NEG [facility] Comment on above: Performed By: #### D AU ####[address] [place] [address] Methamphetamine, Ur NOT REPORTED Normal NEG [facility] Comment on above: Performed By: #### D AU ####[address] [place] [address] Propoxyphene,Urine NOT REPORTED Normal NEG [facility] Comment on above: Performed By: #### D AU ####[address] [address] Urine, tricyclic antidepressants NOT REPORTED Normal NEG [facility] Comment on above: Performed By: #### D AU ####[address] [address] Lipid Profileon 11-05-2017 Cholesterol 137 mg/dL Normal <200 [facility] Comment on above: Result Comment: Chol esterol Guidelines: <200 Desirable 200-240 Borderline >240 Undesirable Performed By: #### L IPR ####[address] [address] Cholesterol to HDL Ratio 4.3 {ratio} Normal <5 [facility] Comment on above: Performed By: #### L IPR ####[address] [address] HDL Cholesterol 32 mg/dL Low >40 [facility] Comment on above: Result Comment: HDL Guidelines: <40 Undesirable 40-59 Borderline >59 Desirable Performed By: #### L IPR ####[address] [address] LDL Cholesterol 82 mg/dL Normal 0-130 [facility] Comment on above: Result Comment: LDL Guidelines: <100 Desirable 100-129 Near to/above Desirable 130-159 Borderline >159 UndesirableDirect (measured) LDL and calculated LDL are not interchangeable tests. Performed By: #### L IPR ####[address] [address] Triglyceride 113 mg/dL Normal <150 [facility] Comment on above: Result Comment: Trig lyceride Guidelines: <150 Desirable 150- 199 Borderline 200-499 High >499 Very high Based on AHA Guidelines for fasting triglyceride, June 2012.Performed at [facility] [address] [place] [address] Performed By: #### L IPR ####[facility] [place] [address] Cholesterol in VLDL mass conc NOT REPORTED Normal 10-16 [facility] Comment on above: Performed By: #### L IPR ####[facility] [place] [address] Encounters Encounter Date Encounter Type Care Provider [...] ambulatory DR RODO MENCHACA Facility:H1 Start: 10-25-2022 [facility] Facility:[facility]1 Start: 10-11-2022 End: 10-11-[address] CHRISTINE SÁNCHEZ Facility:H1 Start: 09-12-2022 End: 09-13-[address] YOUSIF APARICIO . Facility:H1 Start: 08-19-2022 Encounter for preprocedural laboratory examination DR YOUSIF APARICIO . [facility] Start: 08-18-2022 End: 08-18-[address] YOUSIF APARICIO . Facility:H1 Start: 08-16-2022 End: 08-17-[address] YOUSIF APARICIO . Facility:H1 Start: 08-16-2022 End: 08-17-2022 Encounter for preprocedural laboratory examination DR YOUSIF APARICIO . Facility:H1 Start: 08-14-2022 End: 08-15-2022 [facility] Facility:H1 Start: 07-27-2022 End: 07-28-[address] YOUSIF APARICIO . Facility:H1 Start: 07-09-2022 End: 07-09-[address] ELISEO HARDING Facility:H1 Start: 12-12-2021 Telephone encounter King zee MD Work Phone: Hematology/Oncology Comment on above: Lab Orders Start: 10-28-2021 Chart abstracting King fleming MD Work Phone: Hematology/Oncology Start: 04-26-2020 End: 04-27-2020 Patient encounter procedure ANTHONY PABON [facility] Start: 04-26-2020 End: 04-26-2020 Subsequent hospital visit by physician Rochelle ALFRED Laboratory Start: 03-16-2020 End: 03-17-2020 [facility] Start: 11-20-2019 End: 11-21-2019 Patient encounter procedure ADKINS [facility] Start: 11-20-2019 End: 11-20-2019 Subsequent hospital visit by physician Rochelle ALFRED Laboratory Comment on above: History of miscarria ge, currently ; Amenorrhea; Positive urine test; Encounter for supervision of normal in first trimester, unspecified ; Spotting in early Start: 06-19-2019 End: 06-20-2019 Patient encounter procedure ADKINS [facility] Start: 06-19-2019 End: 06-19-2019 Subsequent hospital visit by physician Rochelle ALFRED Laboratory Comment on above: Amenorrhea; Positive urine test; Encounter for supervision of normal in first trimester, unspecified ; Spotting in early Start: 05-09-2019 End: 05-10-2019 Patient encounter procedure KADI SCHROEDER [facility] Start: 05-09-2019 End: 05-09-2019 Subsequent hospital visit by physician Rochelle ALFRED Laboratory Start: 11-05-2017 End: 11-07-2017 Evaluation and management of inpatient ANGELO SPICER [facility] Procedures Date Procedure Procedure Detail Performing Clinician Start: 04-26-2020 Acute hepatitis panel D DELLA SCHROEDER Start: 04-26-2020 Antibody hiv-1&hiv-2 single result KADI DESTINY Start: 04-26-2020 Blood count complete automated KADI DESTINY Start: 04-26-2020 Comprehensive metabo lic panel KADI DESTINY Start: 04-26-2020 Gonadotropin chorion ic qualitative KADI DESTINY Start: 04-26-2020 Iadna hepatitis c qu ant & reverse c s s representative KADI DESTINY Start: 04-26-2020 Acute hepatitis panel [...] DESTINY Start: 05-09-2019 Comprehensive metabo lic panel AKDI DESTINY Start: 05-09-2019 Acute hepatitis panel D awn R Destiny Work Phone: Start: 05-09-2019 Comprehensive metabo lic panel Kadi Schroeder Work Phone: Start: 11-06-2017 DISCHARGE PATIENT LUIS E SPICER Start: 11-05-2017 URINE DRUG SCREEN LUIS E SPICER Start: 11-05-2017 NURSING COMMUNICATION S VIKA SPICER Start: 11-05-2017 Lipid panel ANGELO YEAST TENDER Start: 11-05-2017 DIET GENERAL ANGELO YEAST TENDER Start: 11-05-2017 FULL CODE ANGELO YEAST TENDER Start: 11-05-2017 IP CONSULT TO HISTOR Y [...] type Expected: 12/12/2021, Expires: 02/11/2022 [facility] Work Phone: Comment on above: Expected: 12/12/2021 , Expires: 02/11/2022 Start: 05-18-2021 Influenza vaccination INFLUENZA (#1) [facility] Start: 06-26-2020 Cervical cancer screen Cervical canc er [place] Comment on above: Postponed from 01/11 (Not Indicated) Start: 06-26-2020 Screening for malign ant neoplasm of cervix Cervical cancer screen [place] Comment on above: Postponed from 01/11 (Not Indicated) Start: 05-18-2020 Influenza vaccination Flu vaccine (# 1) [facility] [place] Start: 11-21-2019 End: 11-21-2019 Ancillary Procedure 11/21/2019 Ancillary Procedure Obstetrics and Gynecology [facility] Start: 06-26-2019 End: 06-26-2019 Routine 06/26/2019 Routine Obstetrics and Gynecology Georgette Leung APRN - [address] [place] [address] [phone] [facility] 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 Start: 05-18-2019 Influenza vaccination Flu vaccine (# 1) [place] Start: 2015 Cervical cancer screen Cervical canc er screen [place] Start: 2015 PAP TESTING PAP TESTING [facility] Start: 2013 DTaP/Tdap/Td vaccine (1 - Tdap) DTaP/Tdap/Td vaccine (1 - Tdap) [place] Start: 2013 Urine microalbumin profile DTAP,TDAP,TD (1 - Tdap) [facility] Start: 01-12-2012 HEPATITIS C SCREENING HEPATITIS C SC REENING [facility] Start: 01-12-2012 HIV SCREENING HIV SCREENING [facility] Start: 2009 HPV vaccine (1 - Fem larissa 3-dose series) HPV vaccine (1 - Female 3-dose series) [place] Start: 2007 Varicella Vaccine (1 of 2 - 13+ 2-dose series) Varicella Vaccine (1 of 2 - 13+ 2-dose series) [place] Start: 2006 Adult depression screening assessment DEPRESSION SCREENING [facility] Start: 2005 DTaP/Tdap/Td vaccine (1 - Tdap) DTaP/Tdap/Td vaccine (1 - Tdap) [place] Start: 2005 HPV vaccine (1 - 2-d ose series) HPV vaccine (1 - 2-dose series) [place] Start: 2005 HPV vaccine (1 - Fem larissa 2-dose series) HPV vaccine (1 - Female 2-dose series) [place] Start: 01-12-2000 Pneumococcal 0-64 ye ars Vaccine (1 of 1 - PPSV23) Pneumococcal 0-64 years Vaccine (1 of 1 - PPSV23) [place] Start: 1999 COVID-19 VACCINE (1) COVID-19 VACCIN E (1) [facility] Start: 1995 Varicella vaccine (1 of 2 - 2-dose childhood series) Varicella vaccine (1 of 2 - 2-dose childhood series) [place] End: 11-20-2019 Bacteria identified Cx Nom (U) Urine Culture Microbiology Routine Amenorrhea Positive urine test Encounter for supervision of normal in first trimester, unspecified 1 Occurrences starting 11/20/2019 until 11/20/2019 [place] Comment on above: 1 Occurrences starti ng 11/20/2019 until 11/20/2019 Bacteria identified Cx Nom (U) [place] End: 06-19-2019 Bacteria identified Cx Nom (U) Urine Culture Microbiology Routine Amenorrhea Positive urine test Encounter for supervision of normal in first trimester, unspecified 1 Occurrences starting 06/19/2019 until 06/19/2019 [place] Comment on above: 1 Occurrences starti ng 06/19/2019 until 06/19/2019 End: 11-20-2019 C.trachomatis N.gonorrhoeae DNA, Urine C.trachomatis N.gonorrhoeae DNA, Urine Microbiology Routine Amenorrhea Positive urine test Encounter for supervision of normal in first trimester, unspecified 1 Occurrences starting 11/20/2019 until 11/20/2019 [place] Comment on above: 1 Occurrences starti ng 11/20/2019 until 11/20/2019 C.trachomatis N.gonorrhoeae DNA, Urine [place] End: 06-19-2019 C.trachomatis N.gonorrhoeae DNA, Urine C.trachomatis N.gonorrhoeae DNA, Urine Microbiology Routine Amenorrhea Positive urine test Encounter for supervision of normal in first trimester, unspecified 1 Occurrences starting 06/19/2019 until 06/19/2019 [place] Comment on above: 1 Occurrences starti ng 06/19/2019 until 06/19/2019 End: 04-26-2020 Hepatitis C RNA, quantitative, PCR Hepatitis C RNA, quantitative, PCR Lab Routine Once for 1 Occurrences starting 04/26/2020 until 04/26/2020 [place], [place] Comment on above: Once for 1 Occurrenc es starting 04/26/2020 until 04/26/2020 Hepatitis C RNA, quantitative, PCR Hepatitis C RNA, quantitative, PCR Lab Routine 04/26/2020 7:30 AM EDT [place], [place] End: 05-09-2019 HIV Screen HIV Screen Lab Routine Once for 1 Occurrences starting 05/09/2019 until 05/09/2019 [facility] on above: Once for 1 Occurrenc es starting 05/09/2019 until 05/09/2019 HIV Screen HIV Screen Lab R outine 05/09/2019 2:53 PM EDT [facility] PROFILE I PROF ILE I Lab Routine Amenorrhea Positive urine test Encounter for supervision of normal in first trimester, unspecified 11/20/2019 12:26 PM EST [facility] Payers Date Payer Category Payer Medicaid [employer] [employer] [employer] [id number] 2020-Present [phone] [address] [facility] [place] [address] Medicaid [id number] 2020 Unknown 2016 Unknown [facility] HEALTH [facility]AN [facility] xxxxxxxxxxxx 2016-Present [phone] [address] [facility] [place] [address] xxxxxxxxxxxx [id number] .[id number] 1994 Unknown [id number] 2..840.1.490796.3.579.2.196 1994 Unknown [id number] 2.16.840.1.610668.3.579.2.173 1994 Unknown [id number] 2.16.840.1.036346.3.579.2.173 1994 Unknown [id number] 2.16.840.1.128094.3.579.2.173 1994 Unknown [id number] 2.16.840.1.013067.3.579.2.173 1994 Unknown [id number] 2.16.840.1.443542.3.579.2.593 1994 Unknown [id number] 2.16.840.1.045743.3.579.2.593 1994 Unknown [id number] 2.16.840.1.258018.3.579.2.593 1994 Unknown [id number] 2.16.840.1.597193.3.579.2.593 1994 Unknown [id number] 2.16.840.1.594603.3.579.2.593 1994 Unknown [id number] 2.16.840.1.724916.3.579.2.593 1994 Unknown [id number] 2.16.840.1.710316.3.579.2.593 1994 Unknown [id number] 2.16.840.1.292846.3.579.2.593 1994 Unknown [id number] 2.16.840.1.291088.3.579.2.593 1994 Unknown [id number] 2.16.840.1.142611.3.579.2.593 1994 Unknown [id number] 2.16.840.1.836128.3.579.2.125 9 1994 Unknown [id number] 2.16.840.1.326682.3.579.2.125 9 1994 Unknown [id number] 2.16.840.1.212786.3.579.2.125 9 1994 Unknown [id number] 2.16.840.1.553183.3.579.2.125 9 1959 Unknown [id number] Social History Date Type Detail Facility Start: 11-05-2017 End: 10-28-2021 Tobacco smoking status SDIS Never smoker [facility] Start: 11-05-2017 End: 06-19-2019 Alcohol intake No [place], [place] Start: 1995 Sex Assigned At Not on file M [place], [place] Start: 06-19-2019 End: 11-20-2019 Tobacco smoking status NHIS Current every day smoker [facility] Start: 06-19-2019 End: 11-20-2019 Cigarettes smoked current (pack per day) - Reported [facility] Start: 11-20-2019 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 PREOPERATIVE DIAGNOSIS: Missed . POSTOPERATIVE DIAGNOSIS: Missed . ANESTHESIA: General. SURGEON: Yousif Aparicio D.O. DEPILATORY PAINTER: None. BLOOD LOSS: 75 mL. URINE OUTPUT: [...] products of conception were removed using a 10-Anguillan suction curette. Excellent hemostasis was noted. The patient tolerated the procedure well. Sponge, lap, and needle counts were correct x 2. All instruments were then removed from the patient's vagina. The patient was taken to the Recovery Room in stable condition. ?? [facility] Note 12-12-2021 Telephone Encounter - December - 12/12/2021 11:16 AM EDT Note Date & Type Note Facility 12-12-2021 Miscellaneous Notes Pleases sign pending new cbc order. Thanks, Angelia Almazan MA documented in this encounter [facility] Progress note 11-08-2021 Note Date & Type Note Facility 11-08-2021 Note HNO ID: [id number] Author: King Suazo MD Service: ? Author [...] shortness of breath, and is seen at [place] emergency room. Labs revealed a hemoglobin of [...] biceps/brachioradial/patella/achilles. MUSCULOSKELETAL: Neg (more content not included)... [facility] Evaluation note Note Date & Type Note Facility Evaluation note Diagnosis Iron deficiency anemia, unspecified iron deficiency anemia type- Primary documented in this encounter [facility] Summary Purpose Family History No Family History Records FoundNo Family History Records FoundNo Family History Records FoundNo Family History Records FoundNo Family History Records FoundNo Family History Records Found Advance Directives No Advanced Directives Records FoundDocuments on File Type Date Recorded Patient Pegger Expl anation Advance Directives and Living Will Power of Social Services Director Latest Code Status on File Code Status [...] section and content) DATE CREATED AUTHOR 03/08/2018 [facility] DATE CREATED AUTHOR AUTHOR'S ORGANIZ ATION 04/08/2020 [facility] DATE CREATED AUTHOR AUTHOR'S ORGANIZ ATION 04/28/2020 [facility] DATE CREATED AUTHOR AUTHOR'S ORGANIZ ATION 12/13/2021 [facility] DATE CREATED AUTHOR AUTHOR'S ORGANIZ ATION 12/25/2022 [facility] DATE CREATED AUTHOR AUTHOR'S CHERIE MARTINEZ 10/10/2023 [facility] EPIC Source Comments (unrecognize d section and content) In the event this informatio n is protected by the Federal Confidentiality of Alcohol and Drug Abuse Patient Records regulations: The Federal rules restrict any use of the information to criminally investigate or prosecute any alcohol or drug abuse patient.[facility] the event this information is protected by the Federal Confidentiality of Alcohol and Drug Abuse Patient Records regulations: The Federal rules restrict any use of the information to criminally investigate or prosecute any alcohol or drug abuse patient.[facility] Reason for Visit (unrecogniz ed section and content) Reason Comments Lab Orders Care Teams (unrecognized sec tion and content) Forming Fixer Relationship Specialty Start Date End Date Rodo Menchaca [address] [place] [address] PCP - General Family Practice 11/08/21 FOR [...] BE BASED ON THE PRIMARY CLINICAL RECORDS. [facility] [employer] provides no warranty or guarantee of the accuracy or completeness of information in this document.
--- OUTSIDE RECORDS SUMMARY | 2023-10-23 07:23 | XMS_ITS | CCD ---
Author Name Unknown Address [address] [place] [address] Organization [facility] Care Team Providers Care Pc Analyst Name Role Phone ANGELO SPICER Unavailable Unavailable LIGIA SPICEREEP Unavailable Unavailable ROCHELLE WILLAMS Unavailable Unavailable Rochelle Willams Primary Care Provider [phone] Lima Cornell Attending Unavailab le Rochelle Willams Primary Care Provider [phone] KADI SCHROEDER Referring Unavailable ROCHELLE WILLAMS Primary [...] DR MENENDEZ Admitting Unavailable NADERER, DR RODO Dicekrson Consulting Unavailable NADERER, DR RODO Dickerson Attending Unavailable NADERER, DR RODO Dickerson Admitting Unavailable [facility] Primary Care Unavaila ble GRECHNY ., ADELITA ORELLANA Consulting Unavailluis CAMARILLO, MYLES Alex Consulting Unavailable GAYE, GURU Consulting Unavailable ALFREDDOYOSEPH, ALIX Consulting Unavailable LINA, KAMILLA Consulting Unavailable SISTER, DANIELA Consulting Unavailable ROBBY ., DR MENENDEZ Consulting Unavailable [facility] Primary Care Unavaila ble ROBBY ., DR MENENDEZ Attending Unavailable ROBBY ., DR MENENDEZ Admitting Unavailable ELENITA, NGOC Consulting Unavailable GEMBUS, AUGUSTUS Consulting Unavailable [facility] Primary Care Unavaila ble ROBBY ., DR MENENDEZ Consulting Unavailable ROBBY ., DR MENENDEZ Attending Unavailable ROBBY ., DR MENENDEZ Admitting Unavailable ZIEBER, DR CHRISTINE Benites Consulting Unavailable ROBBY ., DR MENENDEZ Consulting Unavailable 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 Hemanth Kerr CBC AUTO DIFFon 11-29-2022 BASO # 0.0 103/ul Normal 0.0-0.1 [facility] Comment on above: Performed By: #### C BC #### [facility] [address] [place] [address] Dr. Hemanth Kerr Basophils/100 WBC (Bld) 0.7 % Normal 0.2-2.0 [facility] Comment on above: Performed By: #### C BC #### [facility] [address] [place] [address] Dr. Hemanth Kerr EO # 0.2 103/ul Normal 0.0-0.7 [facility] Comment on above: Performed By: #### C BC #### [facility] [address] [place] [address] Dr. Hemanth Kerr Eosinophils/100 WBC (Bld) 3.3 % Normal 0.9-7.0 [facility] Comment on above: Performed By: #### C BC #### [facility] [address] [place] [address] Dr. Hemanth Kerr Erythrocyte distribution width (RBC) [Ratio] 14.3 % Normal 11.0-15.0 [facility] Comment on above: Performed By: #### C BC #### [facility] [address] [place] [address] Dr. Hemanth Kerr Hematocrit (Bld) [Volume fraction] 37.2 % Normal 36.0-48.0 [facility] Comment on above: Performed By: #### C BC #### [facility] [address] [place] [address] Dr. Hemanth Kerr Hemoglobin (Bld) [Mass/Vol] 11.9 g/dL Critically low 12.0-16.0 [facility] Comment on above: Performed By: #### C BC #### [facility] [address] [place] [address] Dr. Hemanth Kerr IG # 0.01 10e3/ul Normal 0.00-0.03 [facility] Comment on above: Performed By: #### C BC #### [facility] [address] [place] [address] Dr. Hemanth Kerr IG % 0.2 % Normal 0.0-0.5 [facility] Comment on above: Performed By: #### C BC #### [facility] [address] [place] [address] Dr. Hemanth Kerr LYMPH # 1.7 103/ul Normal 1.2-3.8 [facility] Comment on above: Performed By: #### C BC #### [facility] [address] [place] [address] Dr. Hemanth Kerr Lymphocytes/100 WBC (Bld) 31.3 % Normal 20.5-60.0 [facility] Comment on above: Performed By: #### C BC #### [facility] [address] [place] [address] Dr. Hemanth Kerr MANUAL DIFF REQ NO Normal [facility] Comment on above: Performed By: #### C BC #### [facility] [address] [place] [address] Dr. Hemanth Kerr MCH (RBC) [Entitic mass] 27.8 pg Normal 26.7-34.0 [facility] Comment on above: Performed By: #### C BC #### [facility] [address] [place] [address] Dr. Hemanth Kerr MCHC (RBC) [Mass/Vol] 32.0 g/dL Normal 29.9-35.2 [facility] Comment on above: Performed By: #### C BC #### [facility] [address] [place] [address] Dr. Hemanth Kerr MCV (RBC) [Entitic vol] 86.9 fL Normal 81.0-99.0 [facility] Comment on above: Performed By: #### C BC #### [facility] [address] [place] [address] Dr. Hemanth Kerr MONO # 0.4 103/ul Normal 0.3-0.8 [facility] Comment on above: Performed By: #### C BC #### [facility] [address] [place] [address] Dr. Hemanth Kerr Monocytes/100 WBC (Bld) 8.0 % Normal 1.7-12.0 [facility] Comment on above: Performed By: #### C BC #### [facility] [address] [address] [address] Hemanth Kerr NEUT # 3.1 103/ul Normal 1.4-6.5 [facility] Comment on above: Performed By: #### C BC #### [facility] [address] [place] [address] Dr. Hemanth Kerr Neutrophils/100 WBC (Bld) 56.5 % Normal 43.0-75.0 [facility] Comment on above: Performed By: #### C BC #### [facility] [address] [place] [address] Dr. Hemanth Kerr Platelet mean volume (Bld) [Entitic vol] 10.3 fL Normal 9.5-13.5 [facility] Comment on above: Performed By: #### C BC #### [facility] [address] [place] [address] Dr. Hemanth Kerr PLT 258 103/ul Normal 150-450 [facility] Comment on above: Performed By: #### C BC #### [facility] [address] [place] [address] Dr. Hemanth Kerr RBC 4.28 106/ul Normal 4.20-5.40 [facility] Comment on above: Performed By: #### C BC #### [facility] [address] [place] [address] Dr. Hemanth Kerr WBC 5.4 103/ul Normal 4.0-11.0 [facility] Comment on above: Performed By: #### C BC #### [facility] [address] [place] [address] Dr. Hemanth Kerr PROF 14(COMP METB)on 023 Albumin [Mass/Vol] 3.1 g/dL Critically low 3.4-5.0 [facility] Comment on above: Performed By: #### C MP #### [facility] [address] [place] [address] Dr. Hemanth Kerr Albumin/Globulin [Mass ratio] 1.3 {ratio} Normal [facility] Comment on above: Performed By: #### C MP #### [facility] [address] [address] [address] Hemanth Kerr ALP [Catalytic activity/Vol] 56 U/L Normal 46-116 [facility] Comment on above: Performed By: #### C MP #### [facility] [address] [address] [address] Hemanth Kerr ALT [Catalytic activity/Vol] 34 U/L Normal 14-59 [facility] Comment on above: Performed By: #### C MP #### [facility] [address] [place] [address] Dr. Hemanth Kerr Anion gap [Moles/Vol] 7.0 mmol/L Normal [facility] Comment on above: Performed By: #### C MP #### [facility] [address] [place] [address] Dr. Hemanth Kerr AST [Catalytic activity/Vol] 29 U/L Normal 15-37 [facility] Comment on above: Performed By: #### C MP #### [facility] [address] [place] [address] Dr. Hemanth Kerr Bilirubin [Mass/Vol] 0.4 mg/dL Normal 0.2-1.0 [facility] Comment on above: Performed By: #### C MP #### [facility] [address] [place] [address] Dr. Hemanth Kerr Calcium [Mass/Vol] 8.3 mg/dL Critically low 8.5-10.1 [facility] Comment on above: Performed By: #### C MP #### [facility] [address] [place] [address] Dr. Hemanth Kerr Chloride [Moles/Vol] 110 mmol/L Critically high 98-107 [facility] Comment on above: Performed By: #### C MP #### [facility] [address] [place] [address] Dr. Hemanth Kerr CO2 [Moles/Vol] 27.6 mmol/L Normal 21.0-32.0 [facility] Comment on above: Performed By: #### C MP #### [facility] [address] [place] [address] Dr. Hemanth eKrr Creatinine [Mass/Vol] 0.61 mg/dL Normal 0.55-1.02 [facility] Comment on above: Performed By: #### C MP #### [facility] [address] [place] [address] Dr. Hemanth Kerr EGFR-AF [facility] >60 Normal >=60 [facility] Comment on above: Performed By: #### C MP #### [facility] [address] [address] [address] Hemanth Kerr EGFR-NON AF [facility] >60 Normal >=60 [facility] Comment on above: Performed By: #### C MP #### [facility] [address] [place] [address] Dr. Hemanth Kerr Globulin (S) [Mass/Vol] 2.4 g/dL Normal [facility] Comment on above: Performed By: #### C MP #### [facility] [address] [place] [address] Dr. Hemanth Kerr Glucose [Mass/Vol] 110 mg/dL Critically high 74-106 [facility] Comment on above: Performed By: #### C MP #### [facility] [address] [place] [address] Dr. Hemanth Kerr Potassium [Moles/Vol] 2.6 mmol/L Critically low 3.5-5.1 [facility] Comment on above: Performed By: #### C MP #### [facility] [address] [place] [address] Dr. Hemanth Kerr Protein [Mass/Vol] 5.5 g/dL Critically low 6.4-8.2 [facility] Comment on above: Performed By: #### C MP #### [facility] [address] [place] [address] Dr. Hemanth Kerr Sodium [Moles/Vol] 142 mmol/L Normal 136-145 [facility] Comment on above: Performed By: #### C MP #### [facility] [address] [place] [address] Dr. Hemanth Kerr Urea nitrogen [Mass/Vol] 12.0 mg/dL Normal 7.0-18.0 [facility] Comment on above: Performed By: #### C MP #### [facility] [address] [address] [address] Hemanth Kerr Urea nitrogen/Creatinine [Mass ratio] 19.7 mg/mg Normal [facility] Comment on above: Performed By: #### C MP #### [facility] [address] [address] [address] Hemanth Kerr XR HIP LT 2 [...] ALIX GRANADOS Date: 2022-11-28 22:13 Normal [facility] ACETAMINOPHENon 11-28-2022 Acetaminophen [Mass/Vol] ug/mL Critically low 10.0-30.0 [facility] Comment on above: Performed By: #### C MP #### [facility] [address] [address] [address] Hemanth Kerr ACETONE SERUMon 11-28-2022 ACETONE Negative Normal NEGATIVE [facility] Comment on above: Performed By: #### P REG #### [facility] [address] [address] [address] Hemanth Kerr AMMONIAon 11-28-2022 Ammonia (P) [Moles/Vol] 24 umol/L Normal - [facility] Comment on above: Performed By: #### L ACT #### [facility] [address] [address] [address] Hemanth Kerr CBC AUTO DIFFon 11-28-2022 BASO # 0.0 103/ul Normal 0.0-0.1 [facility] Comment on above: Performed By: #### L ACT #### [facility] [address] [address] [address] Hemanth Kerr Basophils/100 WBC (Bld) 0.4 % Normal 0.2-2.0 [facility] Comment on above: Performed By: #### L ACT #### [facility] [address] [place] [address] Dr. Hemanth Kerr EO # 0.3 103/ul Normal 0.0-0.7 [facility] Comment on above: Performed By: #### L ACT #### [facility] [address] [place] [address] Dr. Hemanth Kerr Eosinophils/100 WBC (Bld) 3.1 % Normal 0.9-7.0 [facility] Comment on above: Performed By: #### L ACT #### [facility] [address] [place] [address] Dr. Hemanth Kerr Erythrocyte distribution width (RBC) [Ratio] 14.3 % Normal 11.0-15.0 [facility] Comment on above: Performed By: #### L ACT #### [facility] [address] [place] [address] Dr. Hemanth Kerr Hematocrit (Bld) [Volume fraction] 41.3 % Normal 36.0-48.0 [facility] Comment on above: Performed By: #### L ACT #### [facility] [address] [place] [address] Dr. Hemanth Kerr Hemoglobin (Bld) [Mass/Vol] 13.3 g/dL Normal 12.0-16.0 [facility] Comment on above: Performed By: #### L ACT #### [facility] [address] [place] [address] Dr. Hemanth Kerr IG # 0.02 10e3/ul Normal 0.00-0.03 [facility] Comment on above: Performed By: #### L ACT #### [facility] [address] [place] [address] Dr. Hemanth Kerr IG % 0.2 % Normal 0.0-0.5 [facility] Comment on above: Performed By: #### L ACT #### [facility] [address] [place] [address] Dr. Hemanth Kerr LYMPH # 2.4 103/ul Normal 1.2-3.8 [facility] Comment on above: Performed By: #### L ACT #### [facility] [address] [place] [address] Dr. Hemanth Kerr Lymphocytes/100 WBC (Bld) 26.3 % Normal 20.5-60.0 [facility] Comment on above: Performed By: #### L ACT #### [facility] [address] [place] [address] Dr. Hemanth Kerr MANUAL DIFF REQ NO Normal [facility] Comment on above: Performed By: #### L ACT #### [facility] [address] [place] [address] Dr. Hemanth Kerr MCH (RBC) [Entitic mass] 27.4 pg Normal 26.7-34.0 [facility] Comment on above: Performed By: #### L ACT #### [facility] [address] [place] [address] Dr. Hemanth Kerr MCHC (RBC) [Mass/Vol] 32.2 g/dL Normal 29.9-35.2 [facility] Comment on above: Performed By: #### L ACT #### [facility] [address] [place] [address] Dr. Hemanth Kerr MCV (RBC) [Entitic vol] 85.0 fL Normal 81.0-99.0 [facility] Comment on above: Performed By: #### L ACT #### [facility] [address] [place] [address] Dr. Hemanth Kerr MONO # 0.7 103/ul Normal 0.3-0.8 [facility] Comment on above: Performed By: #### L ACT #### [facility] [address] [place] [address] Dr. Hemanth Kerr Monocytes/100 WBC (Bld) 7.3 % Normal 1.7-12.0 [facility] Comment on above: Performed By: #### L ACT #### [facility] [address] [place] [address] Dr. Hemanth Kerr NEUT # 5.7 103/ul Normal 1.4-6.5 [facility] Comment on above: Performed By: #### L ACT #### [facility] [address] [address] [address] Hemanth Kerr Neutrophils/100 WBC (Bld) 62.7 % Normal 43.0-75.0 [facility] Comment on above: Performed By: #### L ACT #### [facility] [address] [address] [address] Hemanth Kerr Platelet mean volume (Bld) [Entitic vol] 10.6 fL Normal 9.5-13.5 [facility] Comment on above: Performed By: #### L ACT #### [facility] [address] [address] [address] Hemanth Kerr PLT 347 103/ul Normal 150-450 [facility] Comment on above: Performed By: #### L ACT #### [facility] [address] [place] [address] Dr. Hemanth Kerr RBC 4.86 106/ul Normal 4.20-5.40 [facility] Comment on above: Performed By: #### L ACT #### [facility] [address] [place] [address] Dr. Hemanth Kerr WBC 9.1 103/ul Normal 4.0-11.0 [facility] Comment on above: Performed By: #### L ACT #### [facility] [address] [place] [address] CSPINE WO CONon [...] KAMILLA MILLS Date: 2022-11-28 17:54 Normal [facility] CT HEAD WO CONon 11-28-2022 CT [...] KAMILLA MILLS Date: 2022-11-28 18:40 Normal [facility] CULTURE BLOODon 11-28-2022 Microscopic examination of blood, culture Culture Observations: NO GROWTH AT 5 DAYS. Normal [facility] Comment on above: Performed By: #### C BC #### [facility] [address] [place] [address] Dr. Hemanth Kerr Microscopic examination of blood, culture Culture Observations: NO GROWTH AT 5 DAYS. Normal [facility] Comment on above: Performed By: #### B [id number] #### [facility] [address] [place] [address] Dr. Hemanth Kerr [facility]15 SARS-CoV-2 (COVID-19) RNA ELMO+probe Ql (Unsp spec) Not detected Normal NOT DETECTED [facility] Comment on above: Result Comment: When [...] for this test is supported by the Documentation Specialist of Health and Human Service's declaration that [...] used). Performed By: #### L ACT #### [facility] [address] [place] [address] Dr. Hemanth Kerr DRUG SCREEN RAPID (URINE)on 11-28-2022 AMP Positive Abnormal NEGATIVE [facility] Comment on above: Performed By: #### P REG #### [facility] [address] [place] [address] Dr. Hemanth Kerr BAR Negative Normal NEGATIVE [facility] Comment on above: Performed By: #### P REG #### [facility] [address] [place] [address] Dr. Hemanth Kerr BUP Negative Normal NEGATIVE [facility] Comment on above: Performed By: #### P REG #### [facility] [address] [place] [address] Dr. Hemanth Kerr BZO Negative Normal NEGATIVE [facility] Comment on above: Performed By: #### P REG #### [facility] [address] [place] [address] Dr. Hemanth Kerr YOLANDA Negative Normal NEGATIVE [facility] Comment on above: Performed By: #### P REG #### [facility] [address] [place] [address] Dr. Hemanth Kerr CUT-OFFS SEE BELOW Normal [facility] Comment on above: Result Comment: AMP [...] ng/mL Performed By: #### P REG #### [facility] [address] [place] [address] Dr. Hemanth Kerr DRUG CUT HEADER DRUG CLASS TEST SYSTEM CUT-OFF CONCENTRATIONS ARE FOLLOWS: Normal [facility] Comment on above: Performed By: #### P REG #### [facility] [address] [place] [address] Dr. Hemanth Kerr mAMP Positive Abnormal NEGATIVE [facility] Comment on above: Performed By: #### P REG #### [facility] [address] [place] [address] Dr. Hemanth Kerr MTD Negative Normal NEGATIVE [facility] Comment on above: Performed By: #### P REG #### [facility] [address] [place] [address] Dr. Hemanth Kerr OPI Negative Normal NEGATIVE [facility] Comment on above: Performed By: #### P REG #### [facility] [address] [place] [address] Dr. Hemanth Kerr OXY Negative Normal NEGATIVE [facility] Comment on above: Performed By: #### P REG #### [facility] [address] [place] [address] Dr. Hemanth Kerr PCP Negative Normal NEGATIVE [facility] Comment on above: Performed By: #### P REG #### [facility] [address] [place] [address] Dr. Hemanth Kerr PPX Negative Normal NEGATIVE [facility] Comment on above: Performed By: #### P REG #### [facility] [address] [place] [address] Dr. Hemanth Kerr TCA Negative Normal NEGATIVE [facility] Comment on above: Performed By: #### P REG #### [facility] [address] [place] [address] Dr. Hemanth Kerr THC Negative Normal NEGATIVE [facility] Comment on above: Performed By: #### P REG #### [facility] [address] [place] [address] Dr. Hemanth Kerr ER URINE PROFILEon 3 Bilirubin Ql (U) Negative Normal NEGATIVE [facility] Comment on above: Performed By: #### P REG #### [facility] [address] [place] [address] Dr. Hemanth Kerr Clarity (U) CLEAR Normal CLEAR [facility] Comment on above: Performed By: #### P REG #### [facility] [address] [place] [address] Dr. Hemanht Kerr Color (U) LT. YELLOW Normal YELLOW [facility] Comment on above: Performed By: #### P REG #### [facility] [address] [place] [address] Dr. Hemanth Kerr ERUAHD A micrscopic examination will be performed if indicated. Normal [facility] Comment on above: Performed By: #### P REG #### [facility] [address] [place] [address] Dr. Hemanth Kerr Glucose Ql (U) Negative Normal NEGATIVE [facility] Comment on above: Performed By: #### P REG #### [facility] [address] [place] [address] Dr. Hemanth Kerr Hemoglobin Ql (U) Negative Normal NEGATIVE [facility] Comment on above: Performed By: #### P REG #### [facility] [address] [place] [address] Dr. Hemanth Kerr Ketones Ql (U) Negative Normal NEGATIVE [facility] Comment on above: Performed By: #### P REG #### [facility] [address] [place] [address] Dr. Hemanth Kerr LEUKOCYTES Negative Normal NEGATIVE [facility] Comment on above: Performed By: #### P REG #### [facility] [address] [place] [address] Dr. Hemanth Kerr Nitrite Ql (U) Positive Abnormal NEGATIVE [facility] Comment on above: Performed By: #### P REG #### [facility] [address] [place] [address] Dr. Hemanth Kerr pH (U) 7.5 [pH] Normal 5-9 [facility] Comment on above: Performed By: #### P REG #### [facility] [address] [place] [address] Dr. Hemanth Kerr SPEC GRAVITY 1.020 Normal 1.005-<=1.025 [facility] Comment on above: Performed By: #### P REG #### [facility] [address] [place] [address] Dr. Hemanth Kerr UA PROTEIN TRACE Normal NEGATIVE/ TRACE [facility] Comment on above: Performed By: #### P REG #### [facility] [address] [place] [address] Dr. Hemanth Kerr UR MICRO IND INDICATED Normal [facility] Comment on above: Performed By: #### P REG #### [facility] [address] [place] [address] Dr. Hemanth Kerr Urobilinogen Qn (U) 1.0 {Jose'U}/dL Normal 0.2 - 1. 0 [facility] Comment on above: Performed By: #### P REG #### [facility] [address] [place] [address] Dr. Hemanth Kerr ETHANOL (BLD ALC)on 11-29-19 ALC NOTE NOTE: 80 mg/dl is th e legal limit for a blood alcohol level Normal [facility] Comment on above: Performed By: #### C MP #### [facility] [address] [place] [address] Dr. Hemanth Kerr Ethanol [Mass/Vol] mg/dL Normal [facility] Comment on above: Performed By: #### C MP #### [facility] [address] [place] [address] Dr. Hemanth Kerr LACTATE/LACTIC ACIDon 2022 Lactate [Moles/Vol] 0.7 mmol/L Normal 0.4-2.0 [facility] Comment on above: Performed By: #### L ACT #### [facility] [address] [address] [address] Hemanth Kerr Lactate [Moles/Vol] 9.0 mmol/L Critically high 0.4-2.0 [facility] Comment on above: Performed By: #### L ACT #### [facility] [address] [address] [address] Hemanth Kerr PH VENOUS BLOODon 11-28-2022 PCO2 VENOUS 36.6 mmHg Critically low 40.0-52.0 [facility] Comment on above: Performed By: #### P HVEN #### [facility] [address] [place] [address] Dr. Hemanth Kerr pH VENOUS 7.354 Normal 7.330-7.430 [facility] Comment on above: Performed By: #### P HVEN #### [facility] [address] [address] [address] Hemanth Kerr POINT OF CARE GLUCOSEon 11-15 Glucose [Mass/Vol] 127 mg/dL Critically high 74-106 [facility] Comment on above: Performed By: #### C BC #### [facility] [address] [place] [address] Dr. Hemanth Kerr PREG HCG QUALon 11-28-2022 , QUAL Negative Normal NEGATIVE [facility] Comment on above: Performed By: #### P REG #### [facility] [address] [place] [address] Dr. Hemanth Kerr PROF 14(COMP METB)on 023 Albumin [Mass/Vol] 3.7 g/dL Normal 3.4-5.0 [facility] Comment on above: Performed By: #### L ACT #### [facility] [address] [place] [address] Dr. Hemanth Kerr Albumin/Globulin [Mass ratio] 1.3 {ratio} Normal [facility] Comment on above: Performed By: #### L ACT #### [facility] [address] [address] [address] Hemanth Kerr ALP [Catalytic activity/Vol] 72 U/L Normal 46-116 [facility] Comment on above: Performed By: #### L ACT #### [facility] [address] [address] [address] Hemanth Kerr ALT [Catalytic activity/Vol] 42 U/L Normal 14-59 [facility] Comment on above: Performed By: #### L ACT #### [facility] [address] [address] [address] Hemanth Kerr Anion gap [Moles/Vol] 16.3 mmol/L Normal [facility] Comment on above: Performed By: #### L ACT #### [facility] [address] [place] [address] Dr. Hemanth Kerr AST [Catalytic activity/Vol] 45 U/L Critically high 15-37 [facility] Comment on above: Performed By: #### L ACT #### [facility] [address] [place] [address] Dr. Hemanth Kerr Bilirubin [Mass/Vol] 0.4 mg/dL Normal 0.2-1.0 [facility] Comment on above: Performed By: #### L ACT #### [facility] [address] [place] [address] Dr. Hemanth Kerr Calcium [Mass/Vol] 8.8 mg/dL Normal 8.5-10.1 [facility] Comment on above: Performed By: #### L ACT #### [facility] [address] [address] [address] Hemanth Kerr Chloride [Moles/Vol] 107 mmol/L Normal 98-107 [facility] Comment on above: Performed By: #### L ACT #### [facility] [address] [place] [address] Dr. Hemanth Kerr CO2 [Moles/Vol] 21.8 mmol/L Normal 21.0-32.0 [facility] Comment on above: Performed By: #### L ACT #### [facility] [id number] Hemanth Kerr Creatinine [Mass/Vol] 1.32 mg/dL Critically high 0.55-1.02 [facility] Comment on above: Performed By: #### L ACT #### [facility] [address] [address] [address] Hemanth Kerr EGFR-AF [facility] HEL[facility] 58 mL/min/1.73m2 Critically low >=60 [facility] Comment on above: Performed By: #### L ACT #### [facility] [address] [address] [address] Hemanth Kerr EGFR-NON AF [facility] 48 mL/min/1.73m2 Critically low >=60 [facility] Comment on above: Performed By: #### L ACT #### [facility] [address] [address] [address] Hemanth Kerr Globulin (S) [Mass/Vol] 2.9 g/dL Normal [facility] Comment on above: Performed By: #### L ACT #### [facility] [address] [address] [address] Hemanth Kerr Glucose [Mass/Vol] 143 mg/dL Critically high 74-106 [facility] Comment on above: Performed By: #### L ACT #### [facility] [address] [address] [address] Hemanth Kerr Potassium [Moles/Vol] 3.1 mmol/L Critically low 3.5-5.1 [facility] Comment on above: Performed By: #### L ACT #### [facility] [address] [address] [address] Hemanth Kerr Protein [Mass/Vol] 6.6 g/dL Normal 6.4-8.2 [facility] Comment on above: Performed By: #### L ACT #### [facility] [id number] Hemanth Kerr Sodium [Moles/Vol] 142 mmol/L Normal 136-145 [facility] Comment on above: Performed By: #### L ACT #### [facility] [address] [place] [address] Dr. Hemanth Kerr Urea nitrogen [Mass/Vol] 17.0 mg/dL Normal 7.0-18.0 [facility] Comment on above: Performed By: #### L ACT #### [facility] [address] [place] [address] Dr. Hemanth Kerr Urea nitrogen/Creatinine [Mass ratio] 12.9 mg/mg Normal [facility] Comment on above: Performed By: #### L ACT #### [facility] [address] [place] [address] Dr. Hemanth Kerr PROTIMEon 11-28-2022 INR Coag (PPP) [Relative time] 0.97 {INR} Normal [facility] Comment on above: Performed By: #### P T, PTT #### [facility] [address] [place] [address] Dr. Hemanth Kerr INR GUIDELINES SEE BELOW Normal [facility] Comment on above: Result Comment: CHAN RED INR: 2.0 - 3.0 CONDITIONS NOT LISTED BELOW 2.5 - 3.5 FOR PROSTHETIC HEART VALVE REPLACEMENT 2.5 - 3.5 RECURRENT THROMBOSIS Performed By: #### P T, PTT #### [facility] [address] [place] [address] Dr. Hemanth Kerr PT Coag (PPP) [Time] 10.3 s Normal 9.0-11.6 [facility] Comment on above: Performed By: #### P T, PTT #### [facility] [address] [place] [address] Dr. Hemanth Kerr PTTon 11-28-2022 aPTT Coag (Bld) [Time] 25.4 s Normal 22.3-36.2 [facility] Comment on above: Performed By: #### P T, PTT #### [facility] [address] [place] [address] Dr. Hemanth Kerr SALICYLATEon 11-28-2022 SALICYLATE <2.8 Normal <=19.9 [facility] Comment on above: Performed By: #### C MP #### [facility] [address] [place] [address] Dr. Hemanth Kerr TROPONIN, HIGH SENSITIVITYon 11-28-2022 HSTROP 4.2 pg/mL Normal 4.0-51.3 [facility] Comment on above: Result Comment: CUT- OFF POINTS HAVE BEEN ESTABLISHED BASED ON THE FOURTH UNIVERSAL DEFINITIONS OF MYOCARDIAL INFARCTION. THE UPPER REFERENCE LIMIT (URL) OF TROPONIN, DEFINED THE 99TH PERCENTILE OF cTnI DISTRIBUTION IN A REFERENCE POPULATION, HAS BEEN CONFIRMED THE DECISION THRESHOLD FOR [place] DIAGNOSIS. Performed By: #### C MP #### [facility] [address] [place] [address] Dr. Hemanth Kerr TSHon 11-28-2022 TSH 3.476 uIU/mL Normal 0.358-3.740 [facility] Comment on above: Performed By: #### L ACT #### [facility] [address] [place] [address] Dr. Hemanth Kerr URINE MICROSCOPIC ONLYon BACTERIA LARGE Abnormal NONE SEEN [facility] Comment on above: Performed By: #### P REG #### [facility] [address] [place] [address] Dr. Hemanth Kerr Bacteria identified Cx Nom (U) INDICATED Normal [facility] Comment on above: Performed By: #### P REG #### [facility] [address] [place] [address] Dr. Hemanth Kerr CAST SEEN Abnormal NONE SEEN [facility] Comment on above: Performed By: #### P REG #### [facility] [address] [place] [address] Dr. Hemanth Kerr COARSE GRANULAR CAST RARE Normal [facility] Comment on above: Performed By: #### P REG #### [facility] [address] [place] [address] Dr. Hemanth Kerr Crystals LM Nom (Urine sed) NONE SEEN Normal NONE SEEN [facility] Comment on above: Performed By: #### P REG #### [facility] [address] [place] [address] Dr. Hemanth Kerr Epithelial cells LM Ql (Urine sed) RARE Normal NONE SEEN /RARE [facility] Comment on above: Performed By: #### P REG #### [facility] [address] [address] [address] Hemanth Kerr MUCOUS NONE SEEN Normal NONE SEEN [facility] Comment on above: Performed By: #### P REG #### [facility] [address] [address] [address] Hemanth Kerr RBC 0-2 Normal 0-2 [facility] Comment on above: Performed By: #### P REG #### [facility] [address] [place] [address] Dr. Hemanth Kerr WBC 2-5 Abnormal NONE SEEN [facility] Comment on above: Performed By: #### P REG #### [facility] [address] [address] [address] Hemanth Kerr XR CHEST 1 Von [...] MILLS Date: 2022-11-28 17:39 Normal [facility] CULTURE URINEon 10-13-2022 CULTURE URINE [...] Trimethoprim/Sulfamet hoxazole >=320 R F Normal [facility] Comment on above: Performed By: #### U RCX #### [facility] [address] [address] [address] Hemanth Kerr CBC AUTO DIFFon 10-11-2022 BASO # 0.0 103/ul Normal 0.0-0.1 [facility] Comment on above: Performed By: #### C BC #### [facility] [address] [address] [address] Hemanth Kerr Basophils/100 WBC (Bld) 0.3 % Normal 0.2-2.0 [facility] Comment on above: Performed By: #### C BC #### [facility] [address] [place] [address] Dr. Hemanth Kerr EO # 0.0 103/ul Normal 0.0-0.7 [facility] Comment on above: Performed By: #### C BC #### [facility] [address] [place] [address] Dr. Hemanth Kerr Eosinophils/100 WBC (Bld) 0.4 % Critically low 0.9-7.0 [facility] Comment on above: Performed By: #### C BC #### [facility] [address] [place] [address] Dr. Hemanth Kerr Erythrocyte distribution width (RBC) [Ratio] 12.2 % Normal 11.0-15.0 [facility] Comment on above: Performed By: #### C BC #### [facility] [address] [place] [address] Dr. Hemanth Kerr Hematocrit (Bld) [Volume fraction] 38.6 % Normal 36.0-48.0 [facility] Comment on above: Performed By: #### C BC #### [facility] [address] [place] [address] Dr. Hemanth Kerr Hemoglobin (Bld) [Mass/Vol] 12.0 g/dL Normal 12.0-16.0 [facility] Comment on above: Performed By: #### C BC #### [facility] [address] [place] [address] Dr. Hemanth Kerr IG # 0.07 10e3/ul Critically high 0.00-0.03 [facility] Comment on above: Performed By: #### C BC #### [facility] [address] [address] [address] Hemanth Kerr IG % 0.7 % Critically high 0.0-0.5 [facility] Comment on above: Performed By: #### C BC #### [facility] [address] [place] [address] Dr. Hemanth Kerr LYMPH # 1.2 103/ul Normal 1.2-3.8 [facility] Comment on above: Performed By: #### C BC #### [facility] [address] [place] [address] Dr. Hemanth Kerr Lymphocytes/100 WBC (Bld) 12.1 % Critically low 20.5-60.0 [facility] Comment on above: Performed By: #### C BC #### [facility] [address] [place] [address] Dr. Hemanth Kerr MANUAL DIFF REQ NO Normal [facility] Comment on above: Performed By: #### C BC #### [facility] [address] [place] [address] Dr. Hemanth Kerr MCH (RBC) [Entitic mass] 28.0 pg Normal 26.7-34.0 [facility] Comment on above: Performed By: #### C BC #### [facility] [address] [place] [address] Dr. Hemanth Kerr MCHC (RBC) [Mass/Vol] 31.1 g/dL Normal 29.9-35.2 [facility] Comment on above: Performed By: #### C BC #### [facility] [address] [place] [address] Dr. Hemanth Kerr MCV (RBC) [Entitic vol] 90.2 fL Normal 81.0-99.0 [facility] Comment on above: Performed By: #### C BC #### [facility] [address] [place] [address] Dr. Hemanth Kerr MONO # 0.7 103/ul Normal 0.3-0.8 [facility] Comment on above: Performed By: #### C BC #### [facility] [address] [address] [address] Hemanth Kerr Monocytes/100 WBC (Bld) 6.9 % Normal 1.7-12.0 [facility] Comment on above: Performed By: #### C BC #### [facility] [address] [address] [address] Hemanth Kerr NEUT # 8.1 103/ul Critically high 1.4-6.5 [facility] Comment on above: Performed By: #### C BC #### [facility] [address] [address] [address] Hemanth Kerr Neutrophils/100 WBC (Bld) 79.6 % Critically high 43.0-75.0 [facility] Comment on above: Performed By: #### C BC #### [facility] [address] [place] [address] Dr. Hemanth Kerr Platelet mean volume (Bld) [Entitic vol] 10.8 fL Normal 9.5-13.5 [facility] Comment on above: Performed By: #### C BC #### [facility] [address] [address] [address] Hemanth Kerr PLT 452 103/ul Critically high 150-450 [facility] Comment on above: Performed By: #### C BC #### [facility] [address] [place] [address] Dr. Hemanth Kerr RBC 4.28 106/ul Normal 4.20-5.40 [facility] Comment on above: Performed By: #### C BC #### [facility] [address] [address] [address] Hemanth Kerr WBC 10.1 103/ul Normal 4.0-11.0 [facility] Comment on above: Performed By: #### C BC #### [facility] [address] [place] [address] ABD/PELVIS WO CONon [...] CHRISTINE SÁNCHEZ Date: 2022-10-11 14:45 Normal [facility] URINE PROFILEon 3 Bilirubin Ql (U) Negative Normal NEGATIVE [facility] Comment on above: Performed By: #### L ACT #### [facility] [address] [place] [address] Dr. Hemanth Kerr Clarity (U) CLEAR Normal CLEAR [facility] Comment on above: Performed By: #### L ACT #### [facility] [address] [address] [address] Hemanth Kerr Color (U) LT. YELLOW Normal YELLOW [facility] Comment on above: Performed By: #### L ACT #### [facility] [address] [address] [address] Hemanth Kerr ERUAHD A micrscopic examination will be performed if indicated. Normal [facility] Comment on above: Performed By: #### L ACT #### [facility] [address] [address] [address] Hemanth Kerr Glucose Ql (U) Negative Normal NEGATIVE [facility] Comment on above: Performed By: #### L ACT #### [facility] [address] [address] [address] Hemanth Kerr Hemoglobin Ql (U) LARGE Abnormal NEGATIVE [facility] Comment on above: Performed By: #### L ACT #### [facility] [address] [address] [address] Hemanth Kerr Ketones Ql (U) Negative Normal NEGATIVE [facility] Comment on above: Performed By: #### L ACT #### [facility] [address] [place] [address] Dr. Hmeanth Kerr LEUKOCYTES SMALL Abnormal NEGATIVE [facility] Comment on above: Performed By: #### L ACT #### [facility] [address] [place] [address] Dr. Hemanth Kerr Nitrite Ql (U) Negative Normal NEGATIVE [facility] Comment on above: Performed By: #### L ACT #### [facility] [address] [address] [address] Hemanth Kerr pH (U) 6.5 [pH] Normal 5-9 [facility] Comment on above: Performed By: #### L ACT #### [facility] [address] [address] [address] Hemanth Kerr Protein (U) [Mass/Vol] 30 mg/dL Abnormal NEGATIVE/ TRACE [facility] Comment on above: Performed By: #### L ACT #### [facility] [address] [place] [address] Dr. Hemanth Kerr SPEC GRAVITY <=1.005 Abnormal 1.005-<=1.025 [facility] Comment on above: Performed By: #### L ACT #### [facility] [address] [address] [address] Hemanth Kerr UR MICRO IND INDICATED Normal [facility] Comment on above: Performed By: #### L ACT #### [facility] [address] [address] [address] Hemanth Kerr Urobilinogen Qn (U) 1.0 {Jose'U}/dL Normal 0.2 - 1. 0 [facility] Comment on above: Performed By: #### L ACT #### [facility] [address] [address] [address] Hemanth Kerr PREG HCG QUALon 10-11-2022 , QUAL Negative Normal NEGATIVE [facility] Comment on above: Performed By: #### P REG #### [facility] [address] [address] [address] Hemanth Kerr PROF CHEM 8 (BAS METB)on Anion gap [Moles/Vol] 9.4 mmol/L Normal [facility] Comment on above: Performed By: #### L ACT #### [facility] [address] [address] [address] Hemanth Kerr Calcium [Mass/Vol] 8.8 mg/dL Normal 8.5-10.1 [facility] Comment on above: Performed By: #### L ACT #### [facility] [address] [address] [address] Hemanth Kerr Chloride [Moles/Vol] 97 mmol/L Critically low 98-107 [facility] Comment on above: Performed By: #### L ACT #### [facility] [address] [address] [address] Hemanth Kerr CO2 [Moles/Vol] 32.4 mmol/L Critically high 21.0-32.0 [facility] Comment on above: Performed By: #### L ACT #### [facility] [address] [address] [address] Hemanth Kerr Creatinine [Mass/Vol] 0.65 mg/dL Normal 0.55-1.02 [facility] Comment on above: Performed By: #### L ACT #### [facility] [address] [address] [address] Hemanth Kerr EGFR-AF [facility] >60 Normal >=60 [facility] Comment on above: Performed By: #### L ACT #### [facility] [address] [place] [address] Dr. Hemanth Kerr EGFR-NON AF [facility] >60 Normal >=60 [facility] Comment on above: Performed By: #### L ACT #### [facility] [address] [address] [address] Hemanth Kerr Glucose [Mass/Vol] 117 mg/dL Critically high 74-106 T [facility] Comment on above: Performed By: #### L ACT #### [facility] [address] [place] [address] Dr. Hemanth Kerr Potassium [Moles/Vol] 2.8 mmol/L Critically low 3.5-5.1 [facility] Comment on above: Performed By: #### L ACT #### [facility] [address] [place] [address] Dr. Hemanth Kerr Sodium [Moles/Vol] 135 mmol/L Critically low 136-145 [facility] Comment on above: Performed By: #### L ACT #### [facility] [address] [place] [address] Dr. Hemanth Kerr Urea nitrogen [Mass/Vol] 8.0 mg/dL Normal 7.0-18.0 [facility] Comment on above: Performed By: #### L ACT #### [facility] [address] [place] [address] Dr. Hemanth Kerr Urea nitrogen/Creatinine [Mass ratio] 12.3 mg/mg Normal [facility] Comment on above: Performed By: #### L ACT #### [facility] [address] [place] [address] Dr. Hemanth Kerr URINE MICROSCOPIC ONLYon BACTERIA SMALL Abnormal NONE SEEN [facility] Comment on above: Performed By: #### L ACT #### [facility] [address] [place] [address] Dr. Hemanth Kerr Bacteria identified Cx Nom (U) INDICATED Normal [facility] Comment on above: Performed By: #### L ACT #### [facility] [address] [place] [address] Dr. Hemanth Kerr CAST NONE SEEN Normal NONE SEEN [facility] Comment on above: Performed By: #### L ACT #### [facility] [address] [place] [address] Dr. Hemanth Kerr Crystals LM Nom (Urine sed) NONE SEEN Normal NONE SEEN [facility] Comment on above: Performed By: #### L ACT #### [facility] [address] [place] [address] Dr. Hemanth Kerr Epithelial cells LM Ql (Urine sed) FEW Abnormal NONE SEEN /RARE [facility] Comment on above: Performed By: #### L ACT #### [facility] [address] [place] [address] Dr. Hemanth Kerr MUCOUS NONE SEEN Normal NONE SEEN [facility] Comment on above: Performed By: #### L ACT #### [facility] [address] [place] [address] Dr. Hemanth Kerr RBC 0-2 Normal 0-2 [facility] Comment on above: Performed By: #### L ACT #### [facility] [address] [place] [address] Dr. Hemanth Kerr WBC 10-20 Abnormal NONE SEEN [facility] Comment on above: Performed By: #### L ACT #### [facility] [address] [place] [address] Dr. Hemanth Kerr PREG QUANT HCGon 09-12-2022 HCG QUANT 66 mIU/mL Normal [facility] Comment on above: Performed By: #### C MP #### [facility] [address] [place] [address] Dr. Hemanth Kerr HCG RANGE SEE BELOW Normal [facility] Comment on above: Result Comment: 5-50 0.2-1 WEEK 50-500 1-2 WEEKS 100-5,000 2-3 WEEKS 500-10,000 3-4 WEEKS 1,000-50,000 4-5 WEEKS 10,000-100,000 5-6 WEEKS 15,000-200,000 6-8 WEEKS 10,000-100,000 2-3 MONTHS Performed By: #### C MP #### [facility] [address] [place] [address] Dr. Hemanth Kerr CBC AUTO DIFFon 11-30-2022 BASO # 0.0 103/ul Normal 0.0-0.1 [facility] Comment on above: Performed By: #### L ACT #### [facility] [address] [address] [address] Hemanth Kerr Basophils/100 WBC (Bld) 0.6 % Normal 0.2-2.0 [facility] Comment on above: Performed By: #### L ACT #### [facility] [address] [address] [address] Hemanth Kerr EO # 0.1 103/ul Normal 0.0-0.7 [facility] Comment on above: Performed By: #### L ACT #### [facility] [address] [place] [address] Dr. Hemanth Kerr Eosinophils/100 WBC (Bld) 1.3 % Normal 0.9-7.0 [facility] Comment on above: Performed By: #### L ACT #### [facility] [address] [place] [address] Dr. Hemanth Kerr Erythrocyte distribution width (RBC) [Ratio] 12.0 % Normal 11.0-15.0 [facility] Comment on above: Performed By: #### L ACT #### [facility] [address] [place] [address] Dr. Hemanth Kerr Hematocrit (Bld) [Volume fraction] 35.6 % Critically low 36.0-48.0 [facility] Comment on above: Performed By: #### L ACT #### [facility] [address] [place] [address] Dr. Hemanth Kerr Hemoglobin (Bld) [Mass/Vol] 12.4 g/dL Normal 12.0-16.0 [facility] Comment on above: Performed By: #### L ACT #### [facility] [address] [place] [address] Dr. Hemanth Kerr IG # 0.02 10e3/ul Normal 0.00-0.03 [facility] Comment on above: Performed By: #### L ACT #### [facility] [address] [place] [address] Dr. Hemanth Kerr IG % 0.3 % Normal 0.0-0.5 [facility] Comment on above: Performed By: #### L ACT #### [facility] [address] [place] [address] Dr. Hemanth Kerr LYMPH # 1.9 103/ul Normal 1.2-3.8 [facility] Comment on above: Performed By: #### L ACT #### [facility] [address] [place] [address] Dr. Hemanth Kerr Lymphocytes/100 WBC (Bld) 27.5 % Normal 20.5-60.0 [facility] Comment on above: Performed By: #### L ACT #### [facility] [address] [place] [address] Dr. Hemanth Kerr MANUAL DIFF REQ NO Normal [facility] Comment on above: Performed By: #### L ACT #### [facility] [address] [place] [address] Dr. Hemanth Kerr MCH (RBC) [Entitic mass] 29.6 pg Normal 26.7-34.0 [facility] Comment on above: Performed By: #### L ACT #### [facility] [address] [place] [address] Dr. Hemanth Kerr MCHC (RBC) [Mass/Vol] 34.8 g/dL Normal 29.9-35.2 [facility] Comment on above: Performed By: #### L ACT #### [facility] [address] [place] [address] Dr. Hemanth Kerr MCV (RBC) [Entitic vol] 85.0 fL Normal 81.0-99.0 [facility] Comment on above: Performed By: #### L ACT #### [facility] [address] [place] [address] Dr. Hemanth Kerr MONO # 0.4 103/ul Normal 0.3-0.8 [facility] Comment on above: Performed By: #### L ACT #### [facility] [address] [place] [address] Dr. Hemanth Kerr Monocytes/100 WBC (Bld) 6.3 % Normal 1.7-12.0 [facility] Comment on above: Performed By: #### L ACT #### [facility] [address] [place] [address] Dr. Hemanth Kerr NEUT # 4.5 103/ul Normal 1.4-6.5 [facility] Comment on above: Performed By: #### L ACT #### [facility] [address] [place] [address] Dr. Hemanth Kerr Neutrophils/100 WBC (Bld) 64.0 % Normal 43.0-75.0 [facility] Comment on above: Performed By: #### L ACT #### [facility] [address] [place] [address] Dr. Hemnath Kerr Platelet mean volume (Bld) [Entitic vol] 10.6 fL Normal 9.5-13.5 [facility] Comment on above: Performed By: #### L ACT #### [facility] [address] [place] [address] Dr. Hemanth Kerr PLT 247 103/ul Normal 150-450 [facility] Comment on above: Performed By: #### L ACT #### [facility] [address] [place] [address] Dr. Hemanth Kerr RBC 4.19 106/ul Critically low 4.20-5.40 [facility] Comment on above: Performed By: #### L ACT #### [facility] [address] [place] [address] Dr. Hemanth Kerr WBC 7.0 103/ul Normal 4.0-11.0 [facility] Comment on above: Performed By: #### L ACT #### [facility] [address] [place] [address] Dr. Hemanth Kerr Covid-19 PCR ([facility])on 07-20 SARS-CoV-2 (COVID-19) RNA ELMO+probe Ql (Unsp spec) Not detected Normal NOT DETECTED [facility] Comment on above: Result Comment: This test is not yet approved or cleared by the [place] FDA. When there are no FDA-approved or cleared tests available, and other criteria are met, FDA can make tests available under an emergency access mechanism called an Emergency Use Authorization (EUA). The EUA for this test is supported by the [place] of Health and Human Service's (HHS's) declaration [...] SARS-CoV-2. Performed By: #### C MP #### [facility] [address] [place] [address] Dr. Hemanth Kerr PREG QUANT HCGon 08-16-2022 HCG QUANT [id number] mIU/mL Normal [facility] Comment on above: Performed By: #### P REG #### [facility] [address] [place] [address] Dr. Hemanth Kerr HCG RANGE SEE BELOW Normal [facility] Comment on above: Result Comment: 5-50 0.2-1 WEEK 50-500 1-2 WEEKS 100-5,000 2-3 WEEKS 500-10,000 3-4 WEEKS 1,000-50,000 4-5 WEEKS 10,000-100,000 5-6 WEEKS 15,000-200,000 6-8 WEEKS 10,000-100,000 2-3 MONTHS Performed By: #### P REG #### [facility] [address] [place] [address] Dr. Hemanth Kerr PREG QUANT HCGon 08-14-2022 HCG QUANT 52467 mIU/mL Normal [facility] Comment on above: Performed By: #### P REG #### [facility] [address] [place] [address] Dr. Hemanth Kerr HCG RANGE SEE BELOW Normal [facility] Comment on above: Result Comment: 5-50 0.2-1 WEEK 50-500 1-2 WEEKS 100-5,000 2-3 WEEKS 500-10,000 3-4 WEEKS 1,000-50,000 4-5 WEEKS 10,000-100,000 5-6 WEEKS 15,000-200,000 6-8 WEEKS 10,000-100,000 2-3 MONTHS Performed By: #### P REG #### [facility] [address] [address] [address] Hemanth Kerr US PREG TVon 08-14-2022 [...] SÁNCHEZ Date: 2022-08-14 16:22 Normal [facility] US PREG TVon 07-27-2022 US [...] SÁNCHEZ Date: 2022-07-27 17:04 Normal [facility] XR CHEST 1 Von 07-09-2022 [...] [facility] 12-12-2021 [facility] Telephone ([place] [employer]) NOE ERVIN ([id number]) 1995 F Date Time Provider Department 12/12/21 KING SUAZO During your visit today, we recorded the following information about you: Angelia Almazan 12/12/2021 11:16 AM Signed Pleases sign pending new cbc order. Thanks, Angelia Almazan MA Allergies As of Date: 12/12/2021 (No Known Allergies) Date Reviewed: 12/12/2021 Reviewed by: Jasmin Silverio APRN.[facility] - Fully Assessed Reason for Visit: Lab Orders [168] Primary Visit Diagnosis:Iron deficiency anemia, unspecified iron deficiency anemia type [D50.9] Order(s):CBC + DIFF [SQCBCDIF] Order #: [id number] FUTURE Prescriptions as of 12/12/2021 - gabapentin (NEURONTIN) 400 mg capsule Take by mouth. - Polysaccharide Iron Complex 180 mg iron cap Take by mouth. - aspirin 81 mg cap Take 81 mg by mouth once daily. - ONDANSETRON HCL ORAL Take 4 mg by mouth as needed. Problem List As Of Date: 12/12/2021 (None) Encounter Status:Closed by JASMIN SILVERIO on 12/12/21 Normal [facility] 11-10-2021 [facility] Telephone ([place] [employer]) NOE ERVIN ([id number]) 1995 F Date Time Provider Department 11/10/21 [...] B12 is slightly low. Options would be [id number] B12 tablets 2 mg daily or start a monthly injection. Thanks, MELANY De La O RN 11/10/2021 3:40 PM Signed Informed pt of Dr Suazo's message. Pt verbalized understanding and states [facility] told her only 2 doses of [...] by JENNYFER DE LA O on 11/10/21 [facility] CNOVSPon 11-08-2021 CNOVSP Visit (SP) Office ([place]) NOE ERVIN ([id number]) 1995 F Date Time Provider Department 11/08/21 [...] shortness of breath, and is seen at [place] emergency room. Labs revealed a hemoglobin of [...] changes, r (more content not included)... Normal [facility] Comp Metabolic Panelon 11-08 Albumin [Mass/Vol] 3.6 g/dL Low 3.9-4.9 [facility] Comment on above: Performed By: #### S ERFOL, IRON, B12, FERR #### [facility] [place] [facility] [address], [place] [address] ALP [Catalytic activity/Vol] 79 U/L Normal 34-123 [facility] Comment on above: Performed By: #### S ERFOL, IRON, B12, FERR #### [facility] [place] [facility] [address] [place], [place] [address] ALT [Catalytic activity/Vol] 8 U/L Normal 7-38 [facility] Comment on above: Performed By: #### S ERFOL, IRON, B12, FERR #### [facility] [place] [facility] [address], [place] [address] Anion gap [Moles/Vol] 9 mmol/L Normal 9-18 [facility] Comment on above: Performed By: #### S ERFOL, IRON, B12, FERR #### [facility] [place] [facility] [address], [place] [address] AST [Catalytic activity/Vol] 13 U/L Normal 13-35 [facility] Comment on above: Performed By: #### S ERFOL, IRON, B12, FERR #### [place] [address] [place] [address] Bilirubin [Mass/Vol] 0.2 mg/dL Normal 0.2-1.3 [facility] Comment on above: Performed By: #### S ERFOL, IRON, B12, FERR #### [place] [address] Calcium [Mass/Vol] 9.3 mg/dL Normal 8.5-10.2 [facility] Comment on above: Performed By: #### S ERFOL, IRON, B12, FERR #### [place] [address] Chloride [Moles/Vol] 102 mmol/L Normal 97-105 [facility] Comment on above: Performed By: #### S ERFOL, IRON, B12, FERR #### [place] [address] CO2 [Moles/Vol] 23 mmol/L Normal 22-30 [facility] Comment on above: Performed By: #### S ERFOL, IRON, B12, FERR #### [place] [address] Creatinine [Mass/Vol] 0.55 mg/dL Low 0.58-0.96 [facility] Comment on above: Performed By: #### S ERFOL, IRON, B12, FERR #### [place] [address] eGFR- Amer. >60 Normal [facility] Comment on above: Performed By: #### S ERFOL, IRON, B12, FERR #### [place] [address] eGFR-All Other Races >60 Normal [facility] Comment on above: Result Comment: eGFR (Estimated [...] #### S ERFOL, IRON, B12, FERR #### [facility] [employer] [address] [id number] Glucose [Mass/Vol] 96 mg/dL Normal 74-99 [facility] Comment on above: Result Comment: The [place] Diabetes Association (ADA) provides guidance for cutoff [...] Standards of Medical Care in Diabetes 2016, [place] [employer] Association. Diabetes Care. 2016.39(Suppl 1). Performed By: #### S ERFOL, IRON, B12, FERR #### [facility] [employer] [address] [place], [place] [address] Potassium [Moles/Vol] 3.3 mmol/L Low 3.7-5.1 [facility] Comment on above: Performed By: #### S ERFOL, IRON, B12, FERR #### [facility] [place] [facility] [address], [place] [address] Protein [Mass/Vol] 6.3 g/dL Normal 6.3-8.0 [facility] Comment on above: Performed By: #### S ERFOL, IRON, B12, FERR #### [address] [address] Sodium [Moles/Vol] 134 mmol/L Low 136-144 [facility] Comment on above: Performed By: #### S ERFOL, IRON, B12, FERR #### [place] [address] Urea nitrogen [Mass/Vol] 4 mg/dL Low 7-21 [facility] Comment on above: Performed By: #### S ERFOL, IRON, B12, FERR #### [place] [address] Ferritinon 11-08-2021 Ferritin [Mass/Vol] 203.0 ng/mL Normal 14.7-205.1 [facility] Comment on above: Performed By: #### S ERFOL, IRON, B12, FERR #### [address] [address] Folate, Serumon 11-08-2021 Folate [Mass/Vol] 8.5 ng/mL Normal >4.7 [facility] Comment on above: Performed By: #### S ERFOL, IRON, B12, FERR #### [address] [place], [place] [address] Iron and TIBCon 11-08-2021 Iron [Mass/Vol] 93 ug/dL Normal 41-186 [facility] Comment on above: Performed By: #### S ERFOL, IRON, B12, FERR #### [address] [address] TIBC 407 ug/dL High 232-386 [facility] Comment on above: Performed By: #### S ERFOL, IRON, B12, FERR #### [facility] [employer] [address] [place], [place] [address] Transferrin Saturatn 23 % Normal 15-57 [facility] Comment on above: Performed By: #### S ERFOL, IRON, B12, FERR #### [facility] [employer] [address] [place], [place] [address] Remote CBCDIF (for [facility] use o nly)on 11-08-2021 Abs Baso <0.03 Normal <0.11 [facility] Abs [place] 0.57 k/uL Normal <0.87 [facility] Abs Neut 4.67 k/uL Normal 1.45-7.50 [facility] Absolute nRBC <0.01 Normal <0.01 [facility] Basophils/100 WBC (Bld) 0.3 % Normal [facility] DTYPE Auto Diff Normal [facility] Eosinophils (Bld) [#/Vol] 0.05 10*3/uL Normal <0.46 [facility] Eosinophils/100 WBC (Bld) 0.8 % Normal [facility] Erythrocyte distribution width (RBC) [Ratio] 29.9 % High 11.5-15.0 [facility] Hematocrit (Bld) [Volume fraction] 32.6 % Low 36.0-46.0 [facility] Hemoglobin (Bld) [Mass/Vol] 10.1 g/dL Low 11.5-15.5 [facility] Lymphocytes (Bld) [#/Vol] 1.25 10*3/uL Normal 1.00-4.00 [facility] Lymphocytes/100 WBC (Bld) 19.1 % Normal [facility] MCH 25.1 pG Low 26.0-34.0 [facility] MCHC (RBC) [Mass/Vol] 31.0 g/dL Normal 30.5-36.0 [facility] MCV (RBC) [Entitic vol] 81.1 fL Normal 80.0-100.0 [facility] Monocytes/100 WBC (Bld) 8.7 % Normal [facility] Neutrophils/100 WBC (Bld) 71.1 % Normal [facility] NRBCs 0.0 /100 WBC Normal 0 [facility] Platelet mean volume (Bld) [Entitic vol] 10.3 fL Normal 9.0-12.7 [facility] Platelets (Bld) [#/Vol] 223 10*3/uL Normal 150-400 [facility] Comment on above: Result Comment: Resu lt checked and verified Sample checked for a clot. RBC (Bld) [#/Vol] 4.02 10*6/uL Normal 3.90-5.20 [facility] WBC (Bld) [#/Vol] 6.56 10*3/uL Normal 3.70-11.00 [facility] Reticulocyteon 11-08-2021 Abs Retic 0.140 M/uL High 0.0180-0.1000 [facility] Comment on above: Performed By: #### S ERFOL, IRON, B12, FERR #### [facility] [address] [address] Retic% 3.5 % High 0.4-2.0 [facility] Comment on above: Performed By: #### S ERFOL, IRON, B12, FERR #### [facility] [place] [facility] [address], [place] [id number] Vitamin B12on 11-08-2021 Cobalamin (Vitamin B12) [Mass/Vol] 218 pg/mL Low 232-1245 [facility] Comment on above: Performed By: #### S ERFOL, IRON, B12, FERR #### [facility] [place] [facility] [address] [address] HCV RNA,Quant,PCRon 04-27-20 HCV RNA,Quant,PCR Specimen Description [...] Report Status FINAL 04/27/2020 Normal [facility] Comment on above: Performed By: #### H IVCMB, PHEP #### [address] [address] [employer]: Dom Fowler MD #### CP #### [facility] [address] [place] [address] [employer]: Shakeel Graham MD [facility] 04-26-2020 Erythrocyte distribution width (RBC) [Ratio] 14.7 % High 11.8-14.4 [facility] Comment on above: Performed By: #### H IVCMB, PHEP #### [address] [address] [employer]: Dom Fowler MD #### CP #### [facility] [address] [place] [address] [employer]: Shakeel Graham MD Hematocrit (Bld) [Volume fraction] 36.0 % Low 36.3-47.1 [facility] Comment on above: Performed By: #### H IVCMB, PHEP #### [address] [address] [employer]: Dom Fowler MD #### CP #### [facility] [address] [place] [address] [employer]: Shakeel Graham MD Hemoglobin (Bld) [Mass/Vol] 10.9 g/dL Low 11.9-15.1 [facility] Comment on above: Performed By: #### H IVCMB, PHEP #### [address] [id number] [employer]: Dom Fowler MD #### CP #### [facility] [address] [place] [address] [employer]: Shakeel Graham MD MCH (RBC) [Entitic mass] 26.2 pg Normal 25.2-33.5 [facility] Comment on above: Performed By: #### H IVCMB, PHEP #### [address] [id number] [employer]: Dom Fowler MD #### CP #### [facility] [address] [place] [address] [employer]: Shakeel Graham MD MCHC (RBC) [Mass/Vol] 30.3 g/dL Normal 28.4-34.8 [facility] Comment on above: Performed By: #### H IVCMB, PHEP #### [address] [id number] [employer]: Dom Fowler MD #### CP #### [facility] [address] [place] [id number] [employer]: Shakeel Graham MD MCV (RBC) [Entitic vol] 86.5 fL Normal 82.6-102.9 [facility] Comment on above: Performed By: #### H IVCMB, PHEP #### [address] [address] [employer]: Dom Fowler MD #### CP #### [facility] [address] [place] [place] [id number] [employer]: Shakeel Graham MD NRBC Automated 0.0 per 100 WBC Normal 0.0 [facility] Comment on above: Performed By: #### H IVCMB, PHEP #### [address] [id number] [employer]: Dom Fowler MD #### CP #### [facility] [address] [place] [address] [employer]: Shakeel Graham MD Platelet mean volume (Bld) [Entitic vol] 10.8 fL Normal 8.1-13.5 [facility] Comment on above: Performed By: #### H IVCMB, PHEP #### [address] [place], [place] [address] [employer]: Dom Fowler MD #### CP #### [facility] [address] [place], [place] 0366[address] [employer]: Shakeel Graham MD Platelets (Bld) [#/Vol] 328 10*3/uL Normal 138-453 [facility] Comment on above: Performed By: #### H IVCMB, PHEP #### [address] [id number] [employer]: Dom Fowler MD #### CP #### [facility] [address] [place] [address] [employer]: Shakeel Graham MD RBC (Bld) [#/Vol] 4.16 10*6/uL Normal 3.95-5.11 [facility] Comment on above: Performed By: #### H IVCMB, PHEP #### [address] [id number] [employer]: Dom Fowler MD #### CP #### [facility] [address] [place] [address] [employer]: Shakeel Graham MD WBC (Bld) [#/Vol] 5.7 10*3/uL Normal 3.5-11.3 [facility] Comment on above: Performed By: #### H IVCMB, PHEP #### [address] [id number] [employer]: Dom Fowler MD #### CP #### [facility] [address] [place] [address] [employer]: Shakeel Graham MD Erythrocyte distribution width (RBC) [Ratio] 14.7 % High 11.8 - 14.4 % [place], [place] Hematocrit (Bld) [Volume fraction] 36.0 % Low 36.3 - 47.1 % [place] Hemoglobin (Bld) [Mass/Vol] 10.9 g/dL Low 11.9 - 15.1 g/dL [place] Interpretation and review of laboratory results Abnormal [place] MCH (RBC) [Entitic mass] 26.2 pg 25.2 - 33.5 pg [place] MCHC (RBC) [Mass/Vol] 30.3 g/dL 28.4 - 34.8 g/dL [place] MCV (RBC) [Entitic vol] 86.5 fL 82.6 - 102.9 fL [place] Platelet mean volume (Bld) [Entitic vol] 10.8 fL 8.1 - 13.5 fL [place], [place] Platelets (Bld) [#/Vol] 328 10*3/uL [place] RBC (Bld) [#/Vol] 4.16 10*6/uL 3.95 - 5.1 1 m/uL [place] WBC (Bld) [#/Vol] 0.0 10*3/uL 0.0 per 100 WBC [place] WBC (Bld) [#/Vol] 5.7 10*3/uL [place] Comp Metabolic Profon 2019 Bilirubin Ql (U) <0.10 Low 0.3-1.2 [facility] Comment on above: Performed By: #### H IVCMB, PHEP #### [facility] [address] [place] [address] [employer]: Dom Fowler MD #### CP #### [facility] [address] [place] [address] [employer]: Shakeel Graham MD (cont.) Normal [facility] Comment on above: Result Comment: Aver age GFR for 20-29 years old: 116 mL/min/1.73sq m Chronic Kidney Disease: <60 mL/min/1.73sq m Kidney failure: <15 mL/min/1.73sq m eGFR calculated using average adult body mass. Additional eGFR calculator available at: http://www.PulmOne/multiple_crcl_2011.htm Performed By: #### H IVCMB, PHEP #### [facility] [address] [place] [address] [employer]: Dom Fowler MD #### CP #### [facility] [address] [place] [address] [employer]: Shakeel Graham MD Albumin [Mass/Vol] 3.4 g/dL Low 3.5-5.2 [facility] Comment on above: Performed By: #### H IVCMB, PHEP #### [address] [address] [employer]: Dom Fowler MD #### CP #### [facility] [address] [place] [address] [place] [address] [employer]: Shakeel Graham MD Albumin/Globulin [Mass ratio] 1.5 {ratio} Normal 1.0-2.5 [facility] Comment on above: Performed By: #### H IVCMB, PHEP #### [address] [address] [employer]: Dom Fowler MD #### CP #### [facility] [address] [place] [address] [employer]: Shakeel Graham MD Alkaline Phos 40 U/L Normal 35-104 [facility] Comment on above: Performed By: #### H IVCMB, PHEP #### [address] [address] [employer]: Dom Fowler MD #### CP #### [facility] [address] [place] [phone] [employer]: Shakeel Graham MD ALT [Catalytic activity/Vol] 12 U/L Normal 5-33 [facility] Comment on above: Performed By: #### H IVCMB, PHEP #### [facility] [address] [place] [address] [employer]: Dom Fowler MD #### CP #### [facility] [address] [place] [id number] [employer]: Shakeel Graham MD Anion gap [Moles/Vol] 9 mmol/L Normal 9-17 [facility] Comment on above: Performed By: #### H IVCMB, PHEP #### [address] [address] [employer]: Dom Fowler MD #### CP #### [facility] [address] [place] [phone] [employer]: Shakeel Graham MD AST [Catalytic activity/Vol] 12 U/L Normal <32 [facility] Comment on above: Performed By: #### H IVCMB, PHEP #### [address] [address] [employer]: Dom Fowler MD #### CP #### [facility] [address] [place] [id number] [employer]: Shakeel Graham MD BUN/CRE Ratio 26 High 9-20 [facility] Comment on above: Performed By: #### H IVCMB, PHEP #### [address] [address] [employer]: Dom Fowler MD #### CP #### [facility] [address] [place] [id number] [employer]: Shakeel Graham MD Calcium [Mass/Vol] 9.3 mg/dL Normal 8.6-10.4 [facility] Comment on above: Performed By: #### H IVCMB, PHEP #### [address] [address] [employer]: Dom Fowler MD #### CP #### [facility] [address] [place] [address] [address] [place], [place] [id number] [employer]: Shakeel Graham MD Chloride [Moles/Vol] 109 mmol/L High 98-107 [facility] Comment on above: Performed By: #### H IVCMB, PHEP #### [address] [address] [employer]: Dom Fowler MD #### CP #### [address] [place] [phone] [employer]: Shakeel Graham MD CO2 [Moles/Vol] 26 mmol/L Normal 20-31 [facility] Comment on above: Performed By: #### H IVCMB, PHEP #### [address] [address] [employer]: Dom Fowler MD #### CP #### [address] [place] [place] [id number] [employer]: Shakeel Graham MD Creatinine [Mass/Vol] 0.57 mg/dL Normal 0.50-0.90 [facility] Comment on above: Performed By: #### H IVCMB, PHEP #### [address] [address] Software Engineer [employer]: Dom Fowler MD #### CP #### [facility] [address] [place] [address] Dr. [place], [place] [id number] Software Engineer [employer] Applications: Shakeel Graham MD GFR, Amer >60 Normal >60 [facility] Comment on above: Performed By: #### H IVCMB, PHEP #### [address] [address] Software Engineer Web Applications: Dom Fowler MD #### CP #### [facility] [address] [place], [place] 0196583 Software Engineer Web Applications: Shakeel Graham MD GFR,non Amer >60 Normal >60 [facility] Comment on above: Performed By: #### H IVCMB, PHEP #### [address] [address] Software Engineer Web Applications: Dom Fowler MD #### CP #### [address] [place], [place] [id number] Software Engineer Web Applications: Shakeel Graham MD Glucose [Mass/Vol] 92 mg/dL Normal 70-99 [facility] Comment on above: Performed By: #### H IVCMB, PHEP #### [address] [address] Software Engineer Web Applications: Dom Fowler MD #### CP #### [address] [place], [place] [id number] Software Engineer [employer] Applications: Shakeel Graham MD Potassium [Moles/Vol] 3.8 mmol/L Normal 3.7-5.3 [facility] Comment on above: Performed By: #### H IVCMB, PHEP #### [address] [address] Software Engineer Web Applications: Dom Fowler MD #### CP #### [facility] [address] [place] [address] Dr. [place], [place] [id number] Software Engineer [employer]: Shakeel Graham MD Protein [Mass/Vol] 5.7 g/dL Low 6.4-8.3 [facility] Comment on above: Performed By: #### H IVCMB, PHEP #### [address] [address] Software Engineer Web Applications: Dom Fowler MD #### CP #### [address] [place] [address] Software Engineer Web Applications: Sahkeel Graham MD Sodium [Moles/Vol] 144 mmol/L Normal 135-144 [facility] Comment on above: Performed By: #### H IVCMB, PHEP #### [address] [address] Software Engineer Web Applications: Dom Fowler MD #### CP #### [address] [place] [address] Software Engineer [employer] Applications: Shakeel Graham MD Staging: Normal [facility] Comment on above: Result Comment: Stag e 1: Some kidney damage normal GFR Stage 2: Mild kidney damage GFR 60-89 Stage 3: Moderate kidney damage GFR 30-59 Stage 4: Severe kidney damage GFR 15-29 Stage 5: Severe kidney damage GFR <15 ESRD - chronic treatment by dialysis or transplant Performed By: #### H IVCMB, PHEP #### [address] [address] Software Engineer Web Applications: Dom Fowler MD #### CP #### [address] [place] [address] Software Engineer Web Applications: Shakeel Graham MD Urea nitrogen [Mass/Vol] 15 mg/dL Normal 6-20 [facility] Comment on above: Performed By: #### H IVCMB, PHEP #### [address] [address] Software Engineer Web Applications: Dom Fowler MD #### CP #### [address] [place] [address] Software Engineer Web Applications: Shakeel Graham MD [facility] 04-26-2020 Albumin [Mass/Vol] 3.4 g/dL Low 3.5 - 5.2 g/dL [place], [place] Albumin/Globulin [Mass ratio] 1.5 {ratio} [place] ALP [Catalytic activity/Vol] 40 U/L 35 - 104 U/L [place] ALT [Catalytic activity/Vol] 12 U/L 5 - 33 U/L [place] Anion gap [Moles/Vol] 9 mmol/L 9 - 17 mmol/L [place] AST [Catalytic activity/Vol] 12 U/L <32 [place] Bilirubin Ql (U) <0.10 Low 0.3 - 1.2 mg/dL [place], [place] Bun/Cre Ratio 26 High [place], [place] Calcium [Mass/Vol] 9.3 mg/dL 8.6 - 10. 4 mg/dL [place] Chloride [Moles/Vol] 109 mmol/L High 98 - 107 mmol/L [place] CO2 [Moles/Vol] 26 mmol/L 20 - 31 mmol/L [place] Creatinine [Mass/Vol] 0.57 mg/dL 0.5 - 0.9 mg/dL [place] GFR >60 >60 mL/min [place] GFR Non- >60 >60 mL/min [place] Glucose [Mass/Vol] 92 mg/dL 70 - 99 mg/dL [place] Interpretation and review of laboratory results Abnormal [place] Potassium [Moles/Vol] 3.8 mmol/L 3.7 - 5.3 mmol/L [place] Protein [Mass/Vol] 5.7 g/dL Low 6.4 - 8.3 g/dL [place] Sodium [Moles/Vol] 144 mmol/L 135 - 144 mmol/L [place] Urea nitrogen [Mass/Vol] 15 mg/dL 6 - 20 mg/dL [place] HCG Qualitative, Serumon hCG Qual Negative NEGATIVE [place] Comment on above: Specimens with hCG l evels near the threshold of the test (25 mIU/mL) may give a negative or indeterminate result. In such cases, another test should be performed with a new specimen in 48-72 hours. If early is suspected clinically in this setting, correlation with quantitative serum b-hCG level is suggested. [facility] has confirmed the use of plasma for this test. This has not been cleared or approved by the U.S. Food and Drug Administration. The FDA has determined that such clearance is not necessary. HCG Screen, Bloodon 04-26-20 20 HCG Qn Negative Normal NEG [facility] Comment on above: Result Comment: Spec imens with hCG levels near the threshold of the test (25 mIU/mL) may give a negative or indeterminate result. In such cases, another test should be performed with a new specimen in 48-72 hours. If early is suspected clinically in this setting, correlation with quantitative serum b-hCG level is suggested. [employer] has confirmed the use of plasma for this test. This has not been cleared or approved by the U.S. Food and Drug Administration. The FDA has determined that such clearance is not necessary. Performed By: #### H IVCMB, PHEP #### [facility] [address] [place], [place] [id number] Software Engineer [employer] Applications: Dom Fowler MD #### CP #### [address] [place] [address] Software Engineer Web Applications: Shakeel Graham MD HIV Ag/Abon 04-26-2020 HIV Ag/Ab NONREACTIVE Normal NR [facility] Comment on above: Result Comment: No l aboratory evidence of HIV infection. If acute HIV infection is suspected, consider testing for HIV-1 RNA. Performed By: #### H IVCMB, PHEP #### [facility] [address] [place] [address] Software Engineer [employer]: Dom Fowler MD #### CP #### [facility] [address] [place] [address] Software Engineer [employer]: Shakeel Graham MD HIV Screenon 04-26-2020 HIV Ag/Ab NONREACTIVE NONREACTIVE [place] Comment on above: No laboratory eviden ce of HIV infection. If acute HIV infection is suspected, consider testing for HIV-1 RNA. Hepatitis Acute [facility] 04-26 Hep A Ab,IgM NONREACTIVE Normal NR [facility] Comment on above: Performed By: #### H IVCMB, PHEP #### [facility] [address] [place] [address] Software Engineer [employer] Applications: Dom Fowler MD #### CP #### [facility] [address] [place] [address] [place] [address] Software Engineer [employer] Applications: Shakeel Graham MD Hep B Core Ab,IgM NONREACTIVE Normal [facility] Comment on above: Performed By: #### H IVCMB, PHEP #### [address] [address] Software Engineer Web Applications: Dom Fowler MD #### CP #### [address] [place], [place] [phone] Software Engineer Web Applications: Shakeel Graham MD Hep B Surf Ag NONREACTIVE Normal [facility] Comment on above: Performed By: #### H IVCMB, PHEP #### [facility] [address] [place] [address] Software Engineer [employer]: Dom Fowler MD #### CP #### [address] [place] [address] Software Engineer Web Applications: Shakeel Graham MD Hep C Ab REACTIVE Abnormal NR [facility] Comment on above: Result Comment: The [...] Performed By: #### H IVCMB, PHEP #### [facility] [address] [place] [address] Software Engineer Web [employer]: Dom Fowler MD #### CP #### [facility] [address] [place] [address] Software Engineer [employer] Applications: Shakeel Graham MD Hepatitis Panel, Acuteon HAV IgM IA Qn (S) NONREACTIVE NONREACTIVE [place] Hep B Core Ab, IgM NONREACTIVE NONREACTIVE [place] Hepatitis B Surface Ag NONREACTIVE NONREACTIVE [place] Hepatitis C Ab REACTIVE Abnormal NONREACTIVE [place] Comment on above: The hepatitis C [...] Interpretation and review of laboratory results Abnormal [place] Metabolic Panelon 04-26-2020 GFR/1.73 sq M predicted among non-blacks MDRD (S/P/Bld) [Vol rate/Area] [place] Comment on above: Stage 1: Some [...] body mass. Additional eGFR calculator available at: http://[email or web address].Spring/multiple_crcl_2012.htm Microscopic Urinalysison Amorphous, UA NOT REPORTED None [place] Bacteria, UA NOT REPORTED None [place], [place] Casts UA NOT REPORTED /LPF [place] Crystals, UA 5 TO 10 Abnormal None /HPF [place] Crystals, UA CALCIUM OXALATE Abnormal None /HPF [place] Epithelial Cells UA 0 TO 2 [place] Interpretation and review of laboratory results Abnormal [facility], [place] Mucus, UA TRACE Abnormal None [place] Other Observations UA NOT REPORTED NOT REQ. [place] RBC (U) [#/Vol] None [facility], [place] Renal Epithelial, UA NOT REPORTED 0 /HPF Me [facility], [place] Trichomonas, UA NOT REPORTED None [facility] WBC, UA 0 TO 2 [facility], [place] Yeast, UA NOT REPORTED None [facility], [place] UA w/Reflex Cultureon 2019 Acetoacetic Acid,Ur Negative Normal NEG [facility] Comment on above: Performed By: #### H IVCMB, PHEP #### [address] [address] Software Engineer Web Applications: Dom Fowler MD #### CP #### [address] [place] [address] Software Engineer Web Applications: Shakeel Graham MD Bilirubin, SemiQt,Ur Negative Normal NEG [facility] Comment on above: Performed By: #### H IVCMB, PHEP #### [address] [address] Software Engineer Web Applications: Dom Fowler MD #### CP #### [address] [place] [address] Software Engineer [employer] Applications: Shakeel Graham MD Color (U) YELLOW Normal [facility] Comment on above: Performed By: #### H IVCMB, PHEP #### [address] [address] Software Engineer Web Applications: Dom Fowler MD #### CP #### [address] [place] [address] Software Engineer Web Applications: Shakeel Graham MD Glucose Ql (U) Negative Normal NEG [facility] Comment on above: Performed By: #### H IVCMB, PHEP #### [address] [address] Software Engineer Web Applications: Dom Fowler MD #### CP #### [facility] [address] [place] [address] Dr. [place], [place] [phone] Software Engineer Web Applications: Shakeel Graham MD Hemoglobin, Ur Negative Normal NEG [facility] Comment on above: Performed By: #### H IVCMB, PHEP #### [address] [address] Software Engineer Web Applications: Dom Fowler MD #### CP #### [address] [place], [place] [phone] Software Engineer Web Applications: Shakeel Graham MD Leukocyte esterase Test strip Ql (U) Negative Normal NEG [facility] Comment on above: Performed By: #### H IVCMB, PHEP #### [address] [address] Software Engineer Web Applications: Dom Fowler MD #### CP #### [address] [place], [place] [id number] Software Engineer Web Applications: Shakeel Graham MD Nitrite,Ur Negative Normal NEG [facility] Comment on above: Performed By: #### H IVCMB, PHEP #### [address] [address] Software Engineer Web Applications: Dom Fowler MD #### CP #### [address] [place], [place] [phone] Software Engineer [employer] Applications: Shakeel Graham MD pH (U) 6.5 [pH] Normal 5.0-9.0 [facility] Comment on above: Performed By: #### H IVCMB, PHEP #### [address] [address] Software Engineer Web Applications: Dom Fowler MD #### CP #### [facility] [address] [place] [address] [place] [address] Software Engineer Web Applications: Shakeel Graham MD Protein Ql (U) Negative Normal NEG [facility] Comment on above: Performed By: #### H IVCMB, PHEP #### [facility] [address] [place] [address] Software Engineer Web Applications: Dom Fowler MD #### CP #### [address] [place] [address] Software Engineer Web Applications: Shakeel Graham MD Specific gravity (U) [Rel density] 1.025 High 1.010-1.020 [facility] Comment on above: Performed By: #### H IVCMB, PHEP #### [address] [address] Software Engineer Web Applications: Dom Fowler MD #### CP #### [address] [place], [place] [phone] Software Engineer Web Applications: Shakeel Graham MD Turbidity CLEAR Normal CLEAR [facility] Comment on above: Performed By: #### H IVCMB, PHEP #### [address] [address] Software Engineer Web Applications: Dom Fowler MD #### CP #### [address] [place] [address] Software Engineer Web Applications: Shakeel Graham MD Urobilinogen,Ur Normal Normal NORM [facility] Comment on above: Performed By: #### H IVCMB, PHEP #### [address] [address] Software Engineer Web Applications: Dom Fowler MD #### CP #### [address] [place] [address] Software Engineer Web Applications: Shakeel Graham MD Comment NOT REPORTED Normal [facility] Comment on above: Performed By: #### H IVCMB, PHEP #### [place] [address] [place] [address] Software Engineer Web Applications: Dom Fowler MD #### CP #### [facility] [address] [place] [address] [place] [address] Software Engineer [employer] Applications: Shakeel Graham MD Urinalysis Reflex to Culture on 04-26-2020 Bilirubin Urine Negative NEGATIVE [facility] [place], [place] Color, UA YELLOW YELLOW [facility], [place] Glucose, Ur Negative NEGATIVE [facility] Interpretation and review of laboratory results Abnormal [place] Ketones Ql (U) Negative NEGATIVE [facility], [place] Leukocyte esterase Test strip Ql (U) Negative NEGATIVE [facility], [place] Nitrite, Urine Negative NEGATIVE [facility], [place] pH, UA 6.5 [place] Protein (U) [Mass/Vol] Negative NEGATIVE [facility], [place] Specific [place], UA 1.025 High [facility], [place] Turbidity UA CLEAR CLEAR [place] Urinalysis Comments NOT REPORTED [facility], [place] Urine Hgb Negative NEGATIVE [facility] Urobilinogen, Urine Normal Normal [place] Urinalysis,Microon 0 ----- Normal [facility] Comment on above: Performed By: #### H IVCMB, PHEP #### [address] [address] Software Engineer Web Applications: Dom Fowler MD #### CP #### [facility] [address] [place] [address] [place] [address] Software Engineer Web Applications: Shakeel Graham MD Crystals LM Nom (Urine sed) CALCIUM OXALATE Abnormal NONE [facility] Comment on above: Result Comment: 5 TO 10 Performed By: #### H IVCMB, PHEP #### [place] [address] [place] [address] Software Engineer Web Applications: Dom Fowler MD #### CP #### [address] [place] [address] Software Engineer Web Applications: Shakeel Graham MD Epithelial cells LM.HPF (Urine sed) [#/Area] 0 TO 2 Normal 0-25 [facility] Comment on above: Performed By: #### H IVCMB, PHEP #### [address] [address] Software Engineer Web Applications: Dom Fowler MD #### CP #### [address] [place] [phone] Software Engineer Web Applications: Shakeel Graham MD Mucus Strands TRACE Abnormal NONE [facility] Comment on above: Performed By: #### H IVCMB, PHEP #### [address] [address] Software Engineer Web Applications: Dom Fowler MD #### CP #### [address] [place] [address] Software Engineer Web Applications: Shakeel Graham MD RBC (U) [#/Vol] None Normal 0-2 [facility] Comment on above: Performed By: #### H IVCMB, PHEP #### [address] [address] Software Engineer Web Applications: Dom Fowler MD #### CP #### [address] [place] [id number] ( Software Engineer Web Applications: Shakeel Graham MD WBC (U) [#/Vol] 0 TO 2 Normal 0-5 [facility] Comment on above: Performed By: #### H IVCMB, PHEP #### [address] [address] Software Engineer Web Applications: Dom Fowler MD #### CP #### [address] [place], [place] 8261583 Software Engineer Web Applications: Shakeel Graham MD Amorphous sediment LM Ql (Urine sed) NOT REPORTED Normal NONE [facility] Comment on above: Performed By: #### H IVCMB, PHEP #### [facility] [address] [place] [address] Software Engineer Web Applications: Dom Fowler MD #### CP #### [facility] [address] [place] [address] [place] [address] Software Engineer Web Applications: Shakeel Graham MD Bacteria LM.HPF (Urine sed) [#/Area] NOT REPORTED Normal NONE [facility] Comment on above: Performed By: #### H IVCMB, PHEP #### [address] [address] Software Engineer Web Applications: Dom Fowler MD #### CP #### [address] [place] [address] Software Engineer Web Applications: Shakeel Graham MD Casts LM.LPF (Urine sed) [#/Area] NOT REPORTED Normal [facility] Comment on above: Performed By: #### H IVCMB, PHEP #### [address] [address] Software Engineer Web Applications: Dom Fowler MD #### CP #### [address] [place] [address] Software Engineer Web Applications: Shakeel Graham MD Epithelial, Renal NOT REPORTED Normal 0 [facility] Comment on above: Performed By: #### H IVCMB, PHEP #### [address] [address] Software Engineer Web Applications: Dom Fowler MD #### CP #### [address] [place] [address] Software Engineer Web Applications: Shakeel Graham MD Other Observations NOT REPORTED Normal NREQ [facility] Comment on above: Performed By: #### H IVCMB, PHEP #### [address] [address] Software Engineer Web Applications: Dom Fowler MD #### CP #### [facility] [address] [place] [phone] Software Engineer Web Applications: Shakeel Graham MD Trichomonas NOT REPORTED Normal NONE [facility] Comment on above: Performed By: #### H IVCMB, PHEP #### [facility] [address] [place] [address] Software Engineer Web Applications: Dom Fowler MD #### CP #### [facility] [address] [place] [phone] Software Engineer Web Applications: Shakeel Graham MD Yeast LM Ql (Urine sed) NOT REPORTED Normal NONE [facility] Comment on above: Performed By: #### H IVCMB, PHEP #### [address] [place] [place] [address] Software Engineer Web Applications: Dom Fowler MD #### CP #### [facility] [address] [place] [address] Dr. [place] [phone] Software Engineer Web Applications: Shakeel Graham MD ED Clinical Summaryon 2019 ED Clinical Summary [address] [address] ED Clinical Summary Person Information Name: Kathryn Ervin/[facility] Age: 25 Years : 1995 Sex: Female PCP: Marital Status: Single Phone: Race: White Ethnicity: Not or Language: [place] Visit Reason: Drug withdrawal; Drug withdrawal Acuity: 3 Enc Type: Emergency Med Service: Emergency Medicine Arrival: 03/16/2020 20:10:45 Discharge: 03/17/2020 02:12:00 LOS: 000 06:02 Checkin: 03/16/2020 20:10:45 Checkout: 03/17/2020 02:12:00 Dispo Type: Home or Self Care Address: [address] [place] [address] Provider Notes: Diagnosis: 1:Affective disorder; 2:Drug usage [...] range between ( 27.2 and 40.8 ) [place] Auto: 11.4 % -- Normal range between [...] range between ( 36.0 and 46.0 ) [place] Absolute: 1.5 x10 MCH: 27.4 pg -- [...] 03/16/2020 20:20:41 Follow up: With: Address: When: [facility] [place], [place] Within 1 to 2 days Discharge Orders: Discharge Patient 03/17/20 1:45:00 EDT, Discharge to Home, Self Patient Education Information: Understanding Methamphetamine Abuse and Addiction; Treating Affective (Mood) Disorders [facility] Poison Help line: . [facility] Mental Health Hotline: [place] Tobacco Quit Line: [place], [place]) [address]: [phone] [place], [place]) [address]: [phone] [facility] [address], [place]: [phone] Normal [facility] hCG Quantitativeon 0 Beta hCG Qnt 1.7 mIU/mL Normal 0.0-4.9 [facility] Comment on above: Result Comment: 0.0 - 4.9 Negative for 5.0 - 25.0 Indeterminant for : Suggest repeat in 72 hours. >25.0 Positive for Performed By: #### H CG ####[place] [address] .UA Microscp Aon 03-16-2020 UA Hyline Cast Qual >20 Abnormal Negative [facility] Comment on above: Performed By: #### C [id number] ####[place] [id number] UA Mucus Present Abnormal Absent [facility] Comment on above: Performed By: #### C [id number] ####[place] [id number] UA RBC Quant 12 /HPF High 0-5 [facility] Comment on above: Performed By: #### C [id number] ####[address] [address] UA Squepi Cells Quant 6 /HPF Normal 0-29 [facility] Comment on above: Performed By: #### C [id number] ####[address] [address] UA WBC Quant 7 /HPF High 0-5 [facility] Comment on above: Performed By: #### C [id number] ####[address] [address] .eGFRon 03-16-2020 eGFR AA 52 mL/min/1.73m? Low >=60 [facility] Comment on above: Result Comment: Resu lt = 0-14.9 mL/min/1.73 m2 Kidney failure or Dialysis Result = 15-29 mL/min/1.73 m2 Severe decrease in GFR Result = 30-59 mL/min/1.73 m2 Moderate decrease in GFR Result >= 60 mL/min/1.73 m2 Normal or increased GFR Performed By: #### E GFR #### [address] [address] eGFR Non-AA 43 mL/min/1.73m? Low >=60 [facility] Comment on above: Result Comment: Resu [...] dosing. Performed By: #### E GFR #### [address] [address] CBC w/ Diffon 03-16-2020 Erythrocyte distribution width (RBC) [Ratio] 15.9 % High 11.6-14.8 [facility] Comment on above: Performed By: #### C BC #### [address] [address] Hematocrit (Bld) [Volume fraction] 37.5 % Normal 36.0-46.0 [facility] Comment on above: Performed By: #### C BC #### [address] [address] Hemoglobin (Bld) [Mass/Vol] 12.5 g/dL Normal 12.0-16.0 [facility] Comment on above: Performed By: #### C BC #### [address] [address] MCH (RBC) [Entitic mass] 27.4 pg Normal 27.0-35.0 [facility] Comment on above: Performed By: #### C BC #### [address] [address] MCHC (RBC) [Mass/Vol] 33.2 % Normal 31.0-37.0 [facility] Comment on above: Performed By: #### C BC #### [address] [address] MCV (RBC) [Entitic vol] 82.4 fL Normal 80.0-100.0 [facility] Comment on above: Performed By: #### C BC #### [address] [address] Platelet mean volume (Bld) [Entitic vol] 9.4 fL Normal 6.7-10.6 [facility] Comment on above: Performed By: #### C BC #### [address] [address] Platelets (Bld) [#/Vol] 307 x10*3/mcL Normal 150-350 [facility] Comment on above: Performed By: #### C BC #### [address] [address] RBC (Bld) [#/Vol] 4.55 x10*6/mcL Normal 3.80-5.20 [facility] Comment on above: Performed By: #### C BC #### [address] [address] WBC (Bld) [#/Vol] 12.9 x10*3/mcL High 4.5-11.0 [facility] Comment on above: Performed By: #### C BC #### [address] [address] CMPon 03-16-2020 Albumin [Mass/Vol] 5.2 g/dL High 3.2-4.[address] [facility] Comment on above: Result Comment: [facility] Laboratory updated the methodology used for albumin testing on 04/24/18. Albumin measurement was performed using a bromcresol purple dye-binding assay. Performed By: #### C OMP #### [address] [address] Albumin/Globulin [Mass ratio] 1.5 {ratio} Normal 1.1-2.2 [facility] Comment on above: Performed By: #### C OMP #### [address] [address] Alk Phos 47 IU/L Normal 32-91 [facility] Comment on above: Performed By: #### C OMP #### [address] [address] ALT [Catalytic activity/Vol] 19 U/L Normal 14-54 [facility] Comment on above: Performed By: #### C OMP #### [address] [place] [address] Anion gap [Moles/Vol] 22 mmol/L High 7-17 [facility] Comment on above: Performed By: #### C OMP #### [address] [address] AST [Catalytic activity/Vol] 31 U/L Normal 15-41 [facility] Comment on above: Performed By: #### C OMP #### [address] [address] Bili Total 1.4 mg/dL High 0.3-1.2 [facility] Comment on above: Performed By: #### C OMP #### [address] [address] Calcium [Mass/Vol] 10.2 mg/dL Normal 8.5-10.[address] [facility] Comment on above: Performed By: #### C OMP #### [address] [address] Chloride [Moles/Vol] 100 mmol/L Normal 98-110 [facility] Comment on above: Performed By: #### C OMP #### [address] [address] CO2 [Moles/Vol] 19 mmol/L Low 22-32 [facility] Comment on above: Performed By: #### C OMP #### [address] [address] Creatinine [Mass/Vol] 1.47 mg/dL High 0.44-1.03 [facility] Comment on above: Performed By: #### C OMP #### [address] [address] Glucose [Mass/Vol] 85 mg/dL Normal 70-[address] [facility] Comment on above: Performed By: #### C OMP #### [address] [address] Potassium [Moles/Vol] 3.7 mmol/L Normal 3.4-4.8 [facility] Comment on above: Performed By: #### C OMP #### [address] [address] Protein [Mass/Vol] 8.7 g/dL High 6.5-8.[address] [facility] Comment on above: Performed By: #### C OMP #### [address] [address] Sodium [Moles/Vol] 137 mmol/L Normal 133-[address] [facility] Comment on above: Performed By: #### C OMP #### [address] [address] Urea nitrogen [Mass/Vol] 25 mg/dL Normal 8-26 [facility] Comment on above: Performed By: #### C OMP #### [address] [address] Urea nitrogen/Creatinine [Mass ratio] 17.0 mg/mg Normal 10.0-20.0 [facility] Comment on above: Performed By: #### C OMP #### [address] [address] CPKon 03-16-2020 Creatine Phosphokinase 439 IU/L High 38-234 [facility] Comment on above: Performed By: #### C P #### [address] [address] Diff Autoon 03-16-2020 Baso Absolute 0.0 x10*3/mcL Normal 0.0-0.2 [facility] Comment on above: Performed By: #### . Automated Diff #### [address] [address] Basophils/100 WBC (Bld) 0.4 % Normal 0.0-1.5 [facility] Comment on above: Performed By: #### . Automated Diff #### [address] [address] Eos Absolute 0.0 x10*3/mcL Normal 0.0-0.4 [facility] Comment on above: Performed By: #### . Automated Diff #### [address] [address] Eosinophils/100 WBC (Bld) 0.1 % Normal 0.0-5.4 [facility] Comment on above: Performed By: #### . Automated Diff #### [address] [address] Lymphocytes (Bld) [#/Vol] 1.4 x10*3/mcL Normal 1.0-4.8 [facility] Comment on above: Performed By: #### . Automated Diff #### [address] [address] Lymphocytes/100 WBC (Bld) 10.8 % Low 27.2-40.8 [facility] Comment on above: Performed By: #### . Automated Diff #### [address] [address] [place] Absolute 1.5 x10*3/mcL High 0.1-1.1 [facility] Comment on above: Performed By: #### . Automated Diff #### [facility] [address] [place] [address] Monocytes/100 WBC (Bld) 11.4 % Normal 3.7-11.9 [facility] Comment on above: Performed By: #### . Automated Diff #### [facility] [address] [place] [address] Neutro Absolute 10.0 x10*3/mcL High 1.8-7.7 [facility] Comment on above: Performed By: #### . Automated Diff #### [facility] [address] [place] [address] Neutro Auto 77.3 % High 47.2-70.8 [facility] Comment on above: Performed By: #### . Automated Diff #### [address] [address] ED Note-Nursingon 03-16-2020 ED Note-Nursing Lab called about add ons Electronically signed by Barbara Holman 03/16/20 20:49 EDT Normal [facility] ED Note-Physicianon 03-16-20 ED Note-Physician Chief [...] that she has residential set up at [facility] in [place], [place] but she has to detox first. [...] well. She was seen by Alonso, social sciences chair who has arranged for her to go to [facility] tomorrow as patient is interested in treatment. Verbally contracted to safety and filled out a safety plan. Alonso with social work spoke with center medical and lab director, Jelena who will arrange for further follow-up when they arrive tomorrow. Family is agreeable with plan. Patient has good support. They will return if any changes of symptoms or concern. Silvia Castañeda scribing for and in the presence of Dr. Cornell. Scribe Attestation: The information in this document, created by the certified medical records coder for me, accurately reflects the services I [...] High Lymph Auto 03/16/20 20:39 10.8 Low [place] Auto 03/16/20 20:39 11.4 Eos Auto 03/16/20 20:39 0.1 Basophil Auto 03/16/20 20:39 0.4 Neutro Absolute 03/16/20 20:39 10.0 High Lymph Absolute 03/16/20 20:39 1.4 [place] Absolute 03/16/20 20:39 1.5 High Eos Absolute [...] DANIELLE, Lima Richards 03/17/2020 04:16 EDT Normal [facility] Ethanolon 03-16-2020 Ethanol [Mass/Vol] mg/dL Normal <=[address] [facility] Comment on above: Result Comment: To c onvert mg/dL to g/dL, divide result by 1,000. Legal limit of intoxication is 80 mg/dL (0.08 g/dL). Performed By: #### A LC #### [address] [address] UA w Culture if Indon 2019 Color (U) Terri Normal [facility] Comment on above: Performed By: #### U CI #### [address] [address] Glucose (U) [Mass/Vol] Negative Normal Negative [facility] Comment on above: Performed By: #### U CI #### [address] [place] [address] Ketones Ql (U) 20 mg/dL Abnormal Negative [facility] Comment on above: Performed By: #### U CI #### [address] [place] [address] UA Blood Small Abnormal Negative [facility] Comment on above: Performed By: #### U CI #### [address] [place] [address] UA Clarity Cloudy Normal [facility] Comment on above: Performed By: #### U CI #### [address] [address] UA Leukocyte Esterase Trace Abnormal Negative [facility] Comment on above: Performed By: #### U CI #### [address] [place] [address] UA Nitrite Negative Normal Negative [facility] Comment on above: Performed By: #### U CI #### [address] [address] UA pH 5.0 Normal 4.5 - 7.8 [facility] Comment on above: Performed By: #### U CI #### [address] [address] UA Protein 100 mg/dL Abnormal Negative [facility] Comment on above: Performed By: #### U CI #### [address] [address] UA Source Clean Catch Normal [facility] Comment on above: Performed By: #### U CI #### [address] [address] UA Spec Grav 1.025 Normal 1.003-1.035 [facility] Comment on above: Performed By: #### U CI #### [address] [address] UA Urobilinogen 0.2 mg/dL Normal 0.2 - 1.0 [facility] Comment on above: Performed By: #### U CI #### [address] [address] Urobilinogen Qn (U) Small Abnormal Negative [facility] Comment on above: Performed By: #### U CI #### [address] [address] UDS Compon 03-16-2020 Creatinine [Mass/Vol] mg/dL Normal [facility] Comment on above: Performed By: #### C [id number] #### [address] [address] Ur Amph Scrn Positive Abnormal NEG = <1000 [facility] Comment on above: Result Comment: This unconfirmed positive screening result is to be used for medical treatment purposes only. Unconfirmed screening results must not be used for non-medical purposes. (e.g. employment testing, legal testing). Performed By: #### C [id number] #### [address] [address] Ur Anastasia Scrn Negative Normal NEG = <200 [facility] Comment on above: Performed By: #### C [id number] #### [facility] [address] [facility] [place] [address] Ur Benzodia Scrn Negative Normal NEG = <200 [facility] Comment on above: Performed By: #### C [id number] #### [facility] [address] [place] [address] Ur Cannab Scrn Negative Normal NEG = <50 [facility] Comment on above: Performed By: #### C [id number] #### [facility] [address] [facility] [place] [address] Ur Cocaine Scrn Negative Normal NEG = <300 [facility] Comment on above: Performed By: #### C [id number] #### [address] [place] [address] Ur Methadone Scn Negative Normal NEG = <300 [facility] Comment on above: Performed By: #### C [id number] #### [address] [place] [address] Ur Opiate Scrn Negative Normal NEG = <300 [facility] Comment on above: Performed By: #### C [id number] #### [facility] [address] [place] [address], [place] [address] Ur Oxy Screen Negative Normal NEG = <100 [facility] Comment on above: Performed By: #### C [id number] #### [address] [place] [address] Ur Oxy Scrn Qnt 54 ng/mL Normal <=99 [facility] Comment on above: Performed By: #### C [id number] #### [facility] [address] [place] [address] [place] [address] Ur PCP Scrn Negative Normal NEG = <25 [facility] Comment on above: Performed By: #### C [id number] #### [address] [place] [address] UA pH 5.0 Normal 4.5 - 7.8 [facility] Comment on above: Performed By: #### C [id number] #### [facility] [address] [place] [address] UA Spec Grav 1.024 Normal 1.003-1.035 [facility] Comment on above: Performed By: #### C [id number] #### [facility] [address] [place] [address] Chlamydia/GC DNA, Uron 11-23 Chlamydia Probe, Ur Negative Normal NEG [facility] Comment on above: Result Comment: CHLA [...] Performed By: #### H IVCMB, PHEP #### [address] [place], [place] [id number] [employer]: Dom Fowler MD #### CP #### [facility] [address] [place] [address] [employer]: Shakeel Graham MD Gonorrhea Probe, Ur Negative Normal NEG [facility] Comment on above: Result Comment: NEIS [...] Performed By: #### H IVCMB, PHEP #### [address] [place], [place] [id number] [employer]: Dom Fowler MD #### CP #### [facility] [address] [place] [address] [employer]: Shakeel Graham MD Cult,Urineon 11-22-2019 Cult,Urine Specimen Description .VOIDED URINE Special Requests NOT REPORTED Culture NO SIGNIFICANT GROWTH Report Status FINAL 11/22/2019 Normal [facility] Comment on above: Performed By: #### H IVCMB, PHEP #### [facility] [address] [place] [address] [employer]: Dom Fowler MD #### CP #### [facility] [address] [place] [address] [employer]: Shakeel Graham MD HIV Ag/Abon 11-21-2019 HIV Ag/Ab NONREACTIVE Normal [facility] Comment on above: Result Comment: No l aboratory evidence of HIV infection. If acute HIV infection is suspected, consider testing for HIV-1 RNA. Performed By: #### H IVCMB, PHEP #### [address] [address] [employer]: Dom Fowler MD #### CP #### [facility] [address] [place] [address] [employer]: Shakeel Graham MD HIV Screenon 11-21-2019 HIV Ag/Ab NONREACTIVE NONREACTIVE [place], [place] Comment on above: No laboratory eviden ce of HIV infection. If acute HIV infection is suspected, consider testing for HIV-1 RNA. Hep C Abon 11-21-2019 Hep C Ab REACTIVE Abnormal NR [facility] Comment on above: Result Comment: The [...] #### H IVCMB, PHEP #### [facility] [employer] [facility] [place] [address] [employer]: Dom Fowler MD #### CP #### [facility] [address] [place] [address] [place] [address] [employer]: Shakeel Graham MD Profileon 0 Hep B Surf Ag NONREACTIVE Normal NR [facility] Comment on above: Performed By: #### H IVCMB, PHEP #### [address] [address] [employer]: Dom Fowler MD #### CP #### [address] [place] [address] [employer]: Shakeel Graham MD T.pallidum Ab Screen NONREACTIVE Normal NR [facility] Comment on above: Result Comment: T. pallidum antibodies are not detected. There is no serological evidence of infection with T. pallidum (early primary syphilis cannot be excluded). Retest in 2-4 weeks if syphilis is clinically suspect. Performed By: #### H IVCMB, PHEP #### [address] [address] [employer]: Dom Fowler MD #### CP #### [address] [place], [place] [id number] [employer]: Shakeel Graham MD Rubella Ab, IgG 323.1 IU/mL Normal [facility] Comment on above: Result Comment: REFERENCE RANGE: <5.0 NON-REACTIVE (non-immune) 5.0 TO 9.9 EQUIVOCAL >=10.0 REACTIVE (immune) Performed By: #### H IVCMB, PHEP #### [address] [address] [employer]: Dom Fowler MD #### CP #### [address] [place], [place] [id number] Software Engineer [employer]: Shakeel Graham MD HCG, Quanton 11-20-2019 HCG, Quant [id number] IU/L High <5 [facility] Comment on above: Result Comment: Non-preg [...] #### H IVCMB, PHEP #### [facility] [employer] [address] [place] [address] [employer] Engineer [employer]: Dom Fowler MD #### CP #### [facility] [address] [place] [address] [employer] Engineer [employer]: Shakeel Graham MD HCG, Quantitative, on 11-20-2019 hCG Quant [id number] High <5 IU/L [place], [place] Comment on above: Non-preg premeno <=5 Postmeno <=8 Male <=3 If HCG results do not concur with clinical observations, additional testing to confirm results is recommended. Elevated results not associated with may be found in patients with other diseases such as tumors of the germ cells (testis, ovaries, etc.), bladder, pancreas, stomach, lungs, and liver. Interpretation and review of laboratory results Abnormal [place], [place] Hepatitis C Antibodyon 11-19 Hepatitis C Ab REACTIVE Abnormal NONREACTIVE [place], [place] Comment on above: The hepatitis C [...] Interpretation and review of laboratory results Abnormal [place], [place] TYPE AND SCREENon 0 11-20-2019 ABO/Rh Positive [place], [place] Profileon 0 Abs. Basophil 0.03 k/uL Normal 0.00-0.20 [facility] Comment on above: Performed By: #### H IVCMB, PHEP #### [facility] [employer] [address] [place] [address] Software Engineer [employer]: Dom Fowler MD #### CP #### [facility] [address] [place] [address] [address] [place] [id number] [employer]: Shakeel Graham MD Abs.Imm.Granulocyte <0.03 Normal 0.00-0.30 [facility] Comment on above: Performed By: #### H IVCMB, PHEP #### [address] [address] [employer]: Dom Fowler MD #### CP #### [facility] [address] [place] [address] [place] [address] [employer] Engineer [employer]: Shakeel Graham MD Abs.Neutrophil (Seg) 2.95 k/uL Normal 1.50-8.10 [facility] Comment on above: Performed By: #### H IVCMB, PHEP #### [place] [address] [employer]: Dom Fowler MD #### CP #### [facility] [address] [place] [address] [place] [address] [employer]: Shakeel Graham MD Basophils/100 WBC (Bld) 1 % Normal 0-2 [facility] Comment on above: Performed By: #### H IVCMB, PHEP #### [place] [address] [employer]: Dom Fowler MD #### CP #### [facility] [address] [place] [address] [place] [address] [employer]: Shakeel Graham MD Eosinophils (Bld) [#/Vol] 0.09 10*3/uL Normal 0.00-0.44 [facility] Comment on above: Performed By: #### H IVCMB, PHEP #### [place] [address] [employer]: Dom Fowler MD #### CP #### [address] [place], [place] [id number] [employer]: Shakeel Graham MD Eosinophils/100 WBC (Bld) 2 % Normal 1-4 [facility] Comment on above: Performed By: #### H IVCMB, PHEP #### [address] [id number] [employer]: Dom Fowler MD #### CP #### [address] [place], [place] [phone] [employer] Engineer [employer]: Shakeel Graham MD Erythrocyte distribution width (RBC) [Ratio] 14.0 % Normal 11.8-14.4 [facility] Comment on above: Performed By: #### H IVCMB, PHEP #### [address] [id number] [employer]: Dom Fowler MD #### CP #### [address] [place] [phone] [employer]: Shakeel Graham MD Hematocrit (Bld) [Volume fraction] 37.7 % Normal 36.3-47.1 [facility] Comment on above: Performed By: #### H IVCMB, PHEP #### [address] [address] [employer]: Dom Fowler MD #### CP #### [address] [place], [place] [phone] [employer] Engineer [employer]: Shakeel Graham MD Hemoglobin (Bld) [Mass/Vol] 11.8 g/dL Low 11.9-15.1 [facility] Comment on above: Performed By: #### H IVCMB, PHEP #### [address] [address] Software Engineer [employer]: Dom Fowler MD #### CP #### [address] [place], [place] [id number] [employer] Engineer [employer]: Shakeel Graham MD Immature granulocytes (Bld) [#/Vol] 0 % Normal 0 [facility] Comment on above: Performed By: #### H IVCMB, PHEP #### [address] [address] Software Engineer [employer]: Dom Fowler MD #### CP #### [address] [place] [phone] Software Engineer [employer]: Shakeel Graham MD Lymphocytes (Bld) [#/Vol] 1.50 10*3/uL Normal 1.10-3.70 [facility] Comment on above: Performed By: #### H IVCMB, PHEP #### [address] [address] [employer]: Dom Fowler MD #### CP #### [address] [place] [phone] Software Engineer [employer]: Shakeel Graham MD Lymphocytes/100 WBC (Bld) 30 % Normal 24-43 [facility] Comment on above: Performed By: #### H IVCMB, PHEP #### [address] [address] [employer] Engineer [employer]: Dom Fowler MD #### CP #### [address] [place] [phone] [employer] Engineer [employer]: Shakeel Graham MD MCH (RBC) [Entitic mass] 26.5 pg Normal 25.2-33.5 [facility] Comment on above: Performed By: #### H IVCMB, PHEP #### [address] [address] Software Engineer [employer]: Dom Fowler MD #### CP #### [address] [place] [phone] [employer] Engineer [employer]: Shakeel Graham MD MCHC (RBC) [Mass/Vol] 31.3 g/dL Normal 28.4-34.8 [facility] Comment on above: Performed By: #### H IVCMB, PHEP #### [address] [id number] Software [employer]: Dom Fowler MD #### CP #### [address] [place] [phone] Software Engineer [employer]: Shakeel Graham MD MCV (RBC) [Entitic vol] 84.5 fL Normal 82.6-102.9 [facility] Comment on above: Performed By: #### H IVCMB, PHEP #### [address] [id number] [employer]: Dom Fowler MD #### CP #### [address] [place] [phone] Software Engineer [employer]: Shakeel Graham MD Monocytes (Bld) [#/Vol] 0.37 10*3/uL Normal 0.10-1.20 [facility] Comment on above: Performed By: #### H IVCMB, PHEP #### [address] [id number] [employer]: Dom Fowler MD #### CP #### [address] [place] [phone] [employer] Engineer [employer]: Shakeel Graham MD Monocytes/100 WBC (Bld) 8 % Normal 3-12 [facility] Comment on above: Performed By: #### H IVCMB, PHEP #### [address] [address] [employer] Engineer [employer]: Dom Fowler MD #### CP #### [address] [place] [address] [employer] Engineer [employer]: Shakeel Graham MD Neutrophil (Seg) 59 % Normal 36-65 [facility] Comment on above: Performed By: #### H IVCMB, PHEP #### [address] [place] [address] [employer] Engineer [employer]: Dom Fowler MD #### CP #### [facility] [address] [place], [place] [phone] [employer] Engineer [employer]: Shakeel Graham MD NRBC Automated 0.0 per 100 WBC Normal 0.0 [facility] Comment on above: Performed By: #### H IVCMB, PHEP #### [address] [address] Software Engineer [employer]: Dom Fowler MD #### CP #### [facility] [address] [place] [phone] [employer]: Shakeel Graham MD Platelet mean volume (Bld) [Entitic vol] 11.2 fL Normal 8.1-13.5 [facility] Comment on above: Performed By: #### H IVCMB, PHEP #### [address] [address] Software Engineer [employer]: Dom Folwer MD #### CP #### [facility] [address] [place] [phone] [employer] Engineer [employer]: Shakeel Graham MD Platelets (Bld) [#/Vol] 254 10*3/uL Normal 138-453 [facility] Comment on above: Performed By: #### H IVCMB, PHEP #### [address] [address] [employer] Engineer [employer]: Dom Fowler MD #### CP #### [facility] [address] [place], [place] [phone] [employer] Engineer [employer]: Shakeel Graham MD RBC (Bld) [#/Vol] 4.46 10*6/uL Normal 3.95-5.11 [facility] Comment on above: Performed By: #### H IVCMB, PHEP #### [facility] [address] [place] [address] Software [employer]: Dom Fowler MD #### CP #### [facility] [address] [place] [address] [employer] Engineer [employer]: Shakeel Graham MD WBC (Bld) [#/Vol] 5.0 10*3/uL Normal 3.5-11.3 [facility] Comment on above: Performed By: #### H IVCMB, PHEP #### [address] [address] [employer] Engineer [employer]: Dom Fowler MD #### CP #### [facility] [address] [place] [address] [place] [address] [employer] Engineer [employer]: Shakeel Graham MD Auto Diff Performed NOT REPORTED Normal [facility] Comment on above: Performed By: #### H IVCMB, PHEP #### [address] [address] [employer]: Dom Fowler MD #### CP #### [address] [place] [address] [employer] Engineer [employer]: Shakeel Graham MD Platelets (Bld) [#/Vol] NOT REPORTED Normal [facility] Comment on above: Performed By: #### H IVCMB, PHEP #### [address] [address] [employer]: Dom Fowler MD #### CP #### [address] [place] [address] [employer] Engineer [employer]: Shakeel Graham MD RBC morphology finding Nom (Bld) NOT REPORTED Normal [facility] Comment on above: Performed By: #### H IVCMB, PHEP #### [address] [address] Software Engineer Web Applications: Dom Fowler MD #### CP #### [facility] [address] [place], [place] [id number] Software Engineer Web [employer]: Shakeel Graham MD WBC Morphology NOT REPORTED Normal [facility] Comment on above: Performed By: #### H IVCMB, PHEP #### [facility] [address] [place] [address] Software Engineer [employer]: Dom Fowler MD #### CP #### [facility] [address] [place] [address] [address] [place] [phone] Software Engineer [employer]: Shakeel Graham MD Type + Scrnon 11-19 Type + Scrn Negative Normal [facility] Comment on above: Performed By: #### H IVCMB, PHEP #### [address] [address] Software Engineer Web [employer]: Dom Fowler MD #### CP #### [address] [place] [id number] Software Engineer [employer]: Shakeel Graham MD Toxicology [facility] [place] Amphetamine(s),Ur Negative Normal NEG [facility] Comment on above: Performed By: #### H IVCMB, PHEP #### [address] [address] Software Engineer Web Applications: Dom Fowler MD #### CP #### [address] [place], [place] [phone] Software Engineer [employer]: Shakeel Graham MD Barbiturate(s),Ur Negative Normal NEG [facility] Comment on above: Performed By: #### H IVCMB, PHEP #### [address] [address] Software Engineer Web Applications: Dom Fowler MD #### CP #### [address] [place] [address] Software Engineer [employer]: Shakeel Graham MD Benzodiazepine(s) Negative Normal NEG [facility] Comment on above: Performed By: #### H IVCMB, PHEP #### [facility] [address] [place] [address] Software Engineer [employer]: Dom Fowler MD #### CP #### [facility] [address] [place] [address] Dr. [place], [place] [phone] Software Engineer [employer]: Shakeel Graham MD Buprenorphrine, Ur Negative Normal NEG [facility] Comment on above: Performed By: #### H IVCMB, PHEP #### [facility] [address] [place] [address] Software Engineer [employer]: Dom Fowler MD #### CP #### [address] [place] [phone] Software Engineer Web Applications: Shakeel Graham MD Cannabinoid(s),Ur Negative Normal [facility] Comment on above: Performed By: #### H IVCMB, PHEP #### [facility] [address] [place] [address] Software Engineer [employer]: Dom Fowler MD #### CP #### [address] [place], [place] 6043683 Software Engineer [employer]: Shakeel Graham MD Cocaine Metabolite Negative [facility] Comment on above: Performed By: #### H IVCMB, PHEP #### [facility] [address] [place] [address] Software Engineer [employer]: Dom Fowler MD #### CP #### [facility] [address] [place] [address] [address]. [place], [place] [phone] Software Engineer [employer]: Shakeel Graham MD Methadone Ql (U) Negative Normal NEG [facility] Comment on above: Performed By: #### H IVCMB, PHEP #### [address] [address] Software Engineer Web Applications: Dom Fowler MD #### CP #### [facility] [address] [place] [address] Dr. [place], [place] [phone] Software Engineer [employer]: Shakeel Graham MD Methamphetamine, Ur Negative Normal NEG [facility] Comment on above: Performed By: #### H IVCMB, PHEP #### [facility] [address] [place] [address] Software Engineer [employer]: Dom Fowler MD #### CP #### [address] [place], [place] 1759383 Software Engineer Web Applications: Shakeel Graham MD Opiate(s), Ur Negative Normal NEG [facility] Comment on above: Performed By: #### H IVCMB, PHEP #### [address] [address] Software Engineer Web Applications: Dom Fowler MD #### CP #### [address] [place], [place] 7360183 Software Engineer [employer]: Shakeel Graham MD Oxycodone, Urine Negative Normal NEG [facility] Comment on above: Performed By: #### H IVCMB, PHEP #### [address] [address] Software Engineer Web Applications: Dom Fowler MD #### CP #### [address] [place], [place] [phone] Software Engineer [employer] Applications: Shakeel Graham MD Phencyclidine, Ur Negative Normal NEG [facility] Comment on above: Performed By: #### H IVCMB, PHEP #### [address] [address] Software Engineer Web Applications: Dom Fowler MD #### CP #### [address] [place], [place] [phone] Software Engineer Web Applications: Shakeel Graham MD Propoxyphene,Urine Negative Normal NEG [facility] Comment on above: Performed By: #### H IVCMB, PHEP #### [address] [address] Software Engineer Web Applications: Dom Fowler MD #### CP #### [facility] [address] [place] [address] Dr. [place], [place] [phone] Software Engineer Web Applications: Shakeel Graham MD Tricyclic antidepressants Screen Ql (U) Negative Normal NEG [facility] Comment on above: Result Comment: Drug screen results are to be used for medical purposes only. All positive results are unconfirmed. Testing for employment or legal uses should be sent to a reference laboratory for confirmation. Performed By: #### H IVCMB, PHEP #### [address] [address] Software Engineer Web Applications: Dom Fowler MD #### CP #### [address] [place] [address] Software Engineer Web Applications: Shakeel Graham MD Interpretive Info NOT REPORTED Normal [facility] Comment on above: Performed By: #### H IVCMB, PHEP #### [address] [address] Software Engineer Web Applications: Dom Fowler MD #### CP #### [address] [place], [place] [phone] Software Engineer Web Applications: Shakeel Graham MD MDMA, Urine NOT REPORTED Normal NEG [facility] Comment on above: Performed By: #### H IVCMB, PHEP #### [address] [address] Software Engineer Web Applications: Dom Fowler MD #### CP #### [address] [place] [address] Software Engineer Web Applications: Shakeel Graham MD Urine Drug Screen, Magda arizmendijudithon 11-20-2019 Amphetamine Screen, Ur Negative NEGATIVE [facility] [place] Barbiturate Screen, Ur Negative NEGATIVE [facility] [place] Benzodiazepine Screen, Urine Negative NEGATIVE [facility] [place] Buprenorphine Urine Negative NEGATIVE [facility] [place] Cannabinoid Scrn, Ur Negative NEGATIVE [facility] [place] Cocaine Metabolite, Urine Negative NEGATIVE [facility] [place] MDMA, Urine NOT REPORTED NEGATIVE [facility] [place] Methadone Screen, Urine Negative NEGATIVE [facility] [place] Methamphetamine, Urine Negative NEGATIVE [facility] [place] Opiates, Urine Negative NEGATIVE [facility] [place] Oxycodone Screen, Ur Negative NEGATIVE [facility] [place] Phencyclidine, Urine Negative NEGATIVE [facility] [place] Propoxyphene, Urine Negative NEGATIVE [facility] [place] Test Information NOT REPORTED [facility] [place] Tricyclic Antidepressants, Urine Negative NEGATIVE [facility] [place] Comment on above: Drug screen results are to be used for medical purposes only. All positive results are unconfirmed. Testing for employment or legal uses should be sent to a reference laboratory for confirmation. Chlamydia/GC DNA, Uron 06-20 Chlamydia Probe, Ur Negative Normal NEG [facility] Comment on above: Result Comment: CHLA [...] nucleic acid target. Performed By: #### [facility] #### [facility] [address] [place] [address] Software Engineer Web Applications: Dom Fowler MD Gonorrhea Probe, Ur Negative Normal NEG [facility] Comment on above: Result Comment: NEIS [...] target. Performed By: #### U CGP #### [address] [address] Software Engineer Web Applications: Dom Fowler MD Cult,Urineon 06-20-2019 Cult,Urine Specimen Description .CLEAN CATCH URINE Special Requests NOT REPORTED Culture NO SIGNIFICANT GROWTH Report Status FINAL 06/20/2019 Normal [facility] Comment on above: Performed By: #### H IVCMB, PHEP #### [address] [address] Software Engineer Web Applications: Dom Fowler MD #### CP #### [facility] [address] [place] [address] Software Engineer Web Applications: Shakeel Graham MD HIV Ag/Abon 06-20-2019 HIV Ag/Ab NONREACTIVE Normal [facility] Comment on above: Result Comment: No l aboratory evidence of HIV infection. If acute HIV infection is suspected, consider testing for HIV-1 RNA. Performed By: #### A HCV, HIVCMB #### [address] [address] Software Engineer Web Applications: Dom Fowler MD Hep C Abon 06-20-2019 Hep C Ab REACTIVE Abnormal [facility] Comment on above: Result Comment: The hepatitis [...] Performed By: #### A HCV, HIVCMB #### [address] [address] Software Engineer Web Applications: Dom Fowler MD Profileon 9 T.pallidum Ab Screen NONREACTIVE Normal [facility] Comment on above: Result Comment: T. pallidum antibodies are not detected. There is no serological evidence of infection with T. pallidum (early primary syphilis cannot be excluded). Retest in 2-4 weeks if syphilis is clinically suspect. Performed By: #### P RENAT #### [place] [place] [address] Software Engineer Web Applications: Dom Fowler MD [facility] [address] [place] [address] Dr. [place], [place] [phone] Software Engineer Web Applications: Shakeel Graham MD Hep B Surf Ag NONREACTIVE Normal [facility] Comment on above: Performed By: #### P RENAT #### [address] [address] Software Engineer Web Applications: Dom Fowler MD [address] [place] [phone] Software Engineer Web Applications: Shakeel Graham MD Rubella Ab, IgG 286.1 IU/mL Normal [facility] Comment on above: Result Comment: REFERENCE RANGE: <5.0 NON-REACTIVE (non-immune) 5.0 TO 9.9 EQUIVOCAL >=10.0 REACTIVE (immune) Performed By: #### P RENAT #### [address] [address] Software Engineer Web Applications: Dom Fowler MD [address] [place], [facility] Software Engineer Web Applications: Shakeel Graham MD HCG, Quanton 06-19-2019 HCG, Quant 11639 IU/L High <5 [facility] Comment on above: Result Comment: Non-preg [...] liver. Performed By: #### B HCG #### [address] [place], [place] [phone] Software Engineer Web Applications: Shakeel Graham MD HCG, Quantitative, on 06-19-2019 hCG Quant 14849 High <5 IU/L [place], [place] Comment on above: Non-preg premeno <=5 Postmeno <=8 Male <=3 If HCG results do not concur with clinical observations, additional testing to confirm results is recommended. Elevated results not associated with may be found in patients with other diseases such as tumors of the germ cells (testis, ovaries, etc.), bladder, pancreas, stomach, lungs, and liver. Interpretation and review of laboratory results Abnormal [place] HIV Screenon 06-19-2019 HIV Ag/Ab NONREACTIVE NONREACTIVE [place], [place] Comment on above: No laboratory eviden ce of HIV infection. If acute HIV infection is suspected, consider testing for HIV-1 RNA. Hepatitis C Antibodyon 06-19 Hepatitis C Ab REACTIVE Abnormal NONREACTIVE [place], [place] Comment on above: The hepatitis C [...] Interpretation and review of laboratory results Abnormal [place] PROFILE Ion 019 Basophils (Bld) [#/Vol] 10*3/uL [place] Basophils/100 WBC (Bld) 1 % 0 - 2 % [place] Differential Type NOT REPORTED [place] Eosinophils (Bld) [#/Vol] 0.09 10*3/uL [place] Eosinophils/100 WBC (Bld) 2 % 1 - 4 % [place] Erythrocyte distribution width (RBC) [Ratio] 15.7 % High 11.8 - 14.4 % [place] Hematocrit (Bld) [Volume fraction] 36.5 % 36.3 - 47.1 % [place] Hemoglobin (Bld) [Mass/Vol] 11.2 g/dL Low 11.9 - 15.1 g/dL [place] Hepatitis B Surface Ag NONREACTIVE NONREACTIVE [place] Immature granulocytes (Bld) [#/Vol] 0 % 0 [place] Immature granulocytes (Bld) [#/Vol] 10*3/uL [place] Interpretation and review of laboratory results Abnormal [place] Lymphocytes (Bld) [#/Vol] 1.98 10*3/uL [place] Lymphocytes/100 WBC (Bld) 46 % High 24 - 43 % [place] MCH (RBC) [Entitic mass] 25.6 pg 25.2 - 33.5 pg [place] MCHC (RBC) [Mass/Vol] 30.7 g/dL 28.4 - 34.8 g/dL [place] MCV (RBC) [Entitic vol] 83.3 fL 82.6 - 102.9 fL [place] Monocytes (Bld) [#/Vol] 0.37 10*3/uL [place] Monocytes/100 WBC (Bld) 9 % 3 - 12 % [place] Platelet mean volume (Bld) [Entitic vol] 11.6 fL 8.1 - 13.5 fL [place] Platelets (Bld) [#/Vol] NOT REPORTED [place] Platelets (Bld) [#/Vol] 196 10*3/uL [place] RBC (Bld) [#/Vol] 4.38 10*6/uL 3.95 - 5.1 1 m/uL [place] RBC morphology finding Nom (Bld) NOT REPORTED [place] Rubella virus IgG Ql (S) 286.1 IU/mL [place] Comment on above: REFERENCE RANGE: <5.0 NON-REACTIVE (non-immune) 5.0 TO 9.9 EQUIVOCAL >=10.0 REACTIVE (immune) Segmented neutrophils/100 WBC (Bld) 42 % 36 - 65 % [place] Segs Absolute 1.75 [place] T. pallidum, IgG NONREACTIVE NONREACTIVE [place] Comment on above: T. pallidum antibodies are not detected. There is no serological evidence of infection with T. pallidum (early primary syphilis cannot be excluded). Retest in 2-4 weeks if syphilis is clinically suspect. WBC (Bld) [#/Vol] 4.2 10*3/uL [place] WBC (Bld) [#/Vol] 0.0 10*3/uL 0.0 per 100 WBC [place], [place] WBC Morphology NOT REPORTED [place], [place] TYPE AND SCREENon 1 ABO/Rh Positive [place] Profileon 9 Abs. Basophil <0.03 Normal 0.00-0.20 [facility] Comment on above: Performed By: #### P RENAT #### [address] [address] Software Engineer Web Applications: Dom Fowler MD [facility] [address] [place] [address] [place] [address] Software Engineer Web Applications: Shakeel Graham MD Abs.Imm.Granulocyte <0.03 Normal 0.00-0.30 [facility] Comment on above: Performed By: #### P RENAT #### [address] [address] Software Engineer Web Applications: Dom Fowler MD [facility] [address] [place] [address] [place] [address] Software Engineer Web [employer]: Shakeel Graham MD Abs.Neutrophil (Seg) 1.75 k/uL Normal 1.50-8.10 [facility] Comment on above: Performed By: #### P RENAT #### [address] [address] Software Engineer Web Applications: Dom Fowler MD [facility] [address] [place] [address] [place] [address] Software Engineer Web Applications: Shakeel Graham MD Basophils/100 WBC (Bld) 1 % Normal 0-2 [facility] Comment on above: Performed By: #### P RENAT #### [address] [place] [address] Software Engineer Web Applications: Dom Fowler MD [address] [place] [facility] Software Engineer Web Applications: Shakeel Graham MD Eosinophils (Bld) [#/Vol] 0.09 10*3/uL Normal 0.00-0.44 [facility] Comment on above: Performed By: #### P RENAT #### [address] [address] Software Engineer Web Applications: Dom Fowler MD [address] [place] [address] Software Engineer Web Applications: Shakeel Graham MD Eosinophils/100 WBC (Bld) 2 % Normal 1-4 [facility] Comment on above: Performed By: #### P RENAT #### [address] [address] Software Engineer Web Applications: Dom Fowler MD [address] [place] [phone] Software Engineer Web Applications: Shakeel Graham MD Erythrocyte distribution width (RBC) [Ratio] 15.7 % High 11.8-14.4 [facility] Comment on above: Performed By: #### P RENAT #### [address] [address] Software Engineer Web Applications: Dom Fowler MD [address] [place] [address] Software Engineer Web Applications: Shakeel Graham MD Hematocrit (Bld) [Volume fraction] 36.5 % Normal 36.3-47.1 [facility] Comment on above: Performed By: #### P RENAT #### [address] [address] Software Engineer Web Applications: Dom Fowler MD [address] [place] [phone] Software Engineer Web Applications: Shakeel Graham MD Hemoglobin (Bld) [Mass/Vol] 11.2 g/dL Low 11.9-15.1 [facility] Comment on above: Performed By: #### P RENAT #### [address] [place] [address] Software Engineer Web Applications: Dom Fowler MD [facility] [address] [place] [address] Dr. [place] [phone] Software Engineer Web Applications: Shakeel Graham MD Immature granulocytes (Bld) [#/Vol] 0 % Normal 0 [facility] Comment on above: Performed By: #### P RENAT #### [address] [address] Software Engineer Web Applications: Dom Fowler MD [address] [place] [phone] Software Engineer Web Applications: Shakeel Graham MD Lymphocytes (Bld) [#/Vol] 1.98 10*3/uL Normal 1.10-3.70 [facility] Comment on above: Performed By: #### P RENAT #### [address] [address] Software Engineer Web Applications: Dom Fowler MD [address] [place] [phone] Software Engineer Web Applications: Shakeel Graham MD Lymphocytes/100 WBC (Bld) 46 % High 24-43 [facility] Comment on above: Performed By: #### P RENAT #### [address] [address] Software Engineer Web Applications: Dom Fowler MD [address] [place] [phone] Software Engineer Web Applications: Shakeel Graham MD MCH (RBC) [Entitic mass] 25.6 pg Normal 25.2-33.5 [facility] Comment on above: Performed By: #### P RENAT #### [address] [address] Software Engineer Web Applications: Dom Fowler MD [facility] [address] [place] [address] Dr. [place], [place] [phone] Software Engineer Web Applications: Shakeel Graham MD MCHC (RBC) [Mass/Vol] 30.7 g/dL Normal 28.4-34.8 [facility] Comment on above: Performed By: #### P RENAT #### [address] [id number] Software Engineer Web Applications: Dom Fowler MD [address] [place] [phone] Software Engineer Web Applications: Shakeel Graham MD MCV (RBC) [Entitic vol] 83.3 fL Normal 82.6-102.9 [facility] Comment on above: Performed By: #### P RENAT #### [address] [address] Software Engineer Web Applications: Dom Fowler MD [address] [place] [phone] Software Engineer Web Applications: Shakeel Graham MD Monocytes (Bld) [#/Vol] 0.37 10*3/uL Normal 0.10-1.20 [facility] Comment on above: Performed By: #### P RENAT #### [address] [address] Software Engineer Web Applications: Dom Fowler MD [address] [place] [phone] Software Engineer Web Applications: Shakeel Graham MD Monocytes/100 WBC (Bld) 9 % Normal 3-12 [facility] Comment on above: Performed By: #### P RENAT #### [address] [address] Software Engineer Web Applications: Dom Fowler MD [address] [place] [phone] Software Engineer Web Applications: Shakeel Graham MD Neutrophil (Seg) 42 % Normal 36-65 [facility] Comment on above: Performed By: #### P RENAT #### [address] [address] Software Engineer Web Applications: Dom Fowler MD [facility] [address] [place] [address] [place] [address] Software Engineer Web Applications: Shakeel Graham MD NRBC Automated 0.0 per 100 WBC Normal 0.0 [facility] Comment on above: Performed By: #### P RENAT #### [address] [address] Software Engineer Web Applications: Dom Fowler MD [facility] [address] [place] [address] [place] [address] Software Engineer Web Applications: Shakeel Graham MD Platelet mean volume (Bld) [Entitic vol] 11.6 fL Normal 8.1-13.5 [facility] Comment on above: Performed By: #### P RENAT #### [address] [address] Software Engineer Web Applications: Dom Fowler MD [facility] [address] [place] [address] [place] [address] Software Engineer Web Applications: Shakeel Graham MD Platelets (Bld) [#/Vol] 196 10*3/uL Normal 138-453 [facility] Comment on above: Performed By: #### P RENAT #### [address] [address] Software Engineer Web Applications: Dom Fowler MD [facility] [address] [place] [address] [place] [address] Software Engineer Web Applications: Shakeel Graham MD RBC (Bld) [#/Vol] 4.38 10*6/uL Normal 3.95-5.11 [facility] Comment on above: Performed By: #### P RENAT #### [address] [address] Software Engineer Web Applications: Dom Fowler MD [facility] [address] [place] [address] [place] [address] Software Engineer Web Applications: Shakeel Graham MD WBC (Bld) [#/Vol] 4.2 10*3/uL Normal 3.5-11.3 [facility] Comment on above: Performed By: #### P RENAT #### [address] [address] Software Engineer Web Applications: Dom Fowler MD [address] [place] [address] Software Engineer Web Applications: Shakeel Graham MD Auto Diff Performed NOT REPORTED Normal [facility] Comment on above: Performed By: #### P RENAT #### [address] [address] Software Engineer Web Applications: Dom Fowler MD [address] [place] [address] Software Engineer Web Applications: Shakeel Graham MD Platelets (Bld) [#/Vol] NOT REPORTED Normal [facility] Comment on above: Performed By: #### P RENAT #### [address] [address] Software Engineer Web Applications: Dom Fowler MD [address] [place] [address] Software Engineer Web Applications: Shakeel Graham MD RBC morphology finding Nom (Bld) NOT REPORTED Normal [facility] Comment on above: Performed By: #### P RENAT #### [address] [address] Software Engineer Web Applications: Dom Fowler MD [address] [place] [address] Software Engineer Web Applications: Shakeel Graham MD WBC Morphology NOT REPORTED Normal [facility] Comment on above: Performed By: #### P RENAT #### [address] [address] Software Engineer Web Applications: Dom Fowler MD [facility] [address] [place], [place] [phone] Software Engineer Web Applications: Shakeel Graham MD Type + Scrnon 06-19 Type + Scrn Negative [facility] Comment on above: Performed By: #### P RTYS #### [facility] [address] [place], [place] [phone] Software Engineer Web Applications: Shakeel Graham MD Toxicology Scree, Urineon Amphetamine(s),Ur Negative Normal NEG [facility] Comment on above: Performed By: #### C PDAU #### [facility] [address] [place], [place] 6449083 Software Engineer Web Applications: Shakeel Graham MD Barbiturate(s),Ur Negative Normal NEG [facility] Comment on above: Performed By: #### C PDAU #### [facility] [address] [place], [place] [phone] Software Engineer Web Applications: Shakeel Graham MD Benzodiazepine(s) Negative Normal [facility] Comment on above: Performed By: #### C PDAU #### [facility] [address] [place], [place] [phone] Software Engineer Web Applications: Shakeel Graham MD Buprenorphrine, Ur Negative Normal NEG [facility] Comment on above: Performed By: #### C PDAU #### [facility] [address] [place], [place] [phone] Software Engineer Web Applications: Shakeel Graham MD Cannabinoid(s),Ur Negative Normal NEG [facility] Comment on above: Performed By: #### C PDAU #### [facility] [address] [place], [place] [phone] Software Engineer Web Applications: Shakeel Graham MD Cocaine Metabolite Negative Normal [facility] Comment on above: Performed By: #### C PDAU #### [facility] [address] [place], [place] [id number] Software Engineer Web Applications: Shakeel Graham MD Methadone Ql (U) Negative Normal NEG [facility] Comment on above: Performed By: #### C PDAU #### [facility] [address] [place] [address] Software Engineer Web Applications: Shakeel Graham MD Methamphetamine, Ur Negative Normal NEG [facility] Comment on above: Performed By: #### C PDAU #### [facility] [address] [place], [place] [phone] Software Engineer Web Applications: Shakeel Graham MD Opiate(s), Ur Negative Normal NEG [facility] Comment on above: Performed By: #### C PDAU #### [facility] [address] [place], [place] [phone] Software Engineer Web Applications: Shakeel Graham MD Oxycodone, Urine Negative Normal NEG [facility] Comment on above: Performed By: #### C PDAU #### [facility] [address] [place], [place] [phone] Software Engineer Web Applications: Shakeel Graham MD Phencyclidine, Ur Negative Normal NEG [facility] Comment on above: Performed By: #### C PDAU #### [facility] [address] [place], [place] [phone] Software Engineer Web Applications: Shakeel Graham MD Propoxyphene,Urine Negative Normal NEG [facility] Comment on above: Performed By: #### C PDAU #### [facility] [address] [place], [place] [phone] Software Engineer Web Applications: Shakeel Graham MD Tricyclic antidepressants Screen Ql (U) Positive Abnormal NEG [facility] Comment on above: Result Comment: Drug screen results are to be used for medical purposes only. All positive results are unconfirmed. Testing for employment or legal uses should be sent to a reference laboratory for confirmation. Performed By: #### C PDAU #### [facility] [address] [place] [address] Software Engineer Web Applications: Shakeel Graham MD Interpretive Info NOT REPORTED Normal [facility] Comment on above: Performed By: #### C PDAU #### [facility] [address] [place] [address] Software Engineer Web Applications: Shakeel Graham MD MDMA, Urine NOT REPORTED Normal NEG [facility] Comment on above: Performed By: #### C PDAU #### [facility] [address] [place] [address] Software Engineer Web Applications: Shakeel Graham MD Urine Drug Screen, [place] [...] [place], [place] MDMA, Urine NOT REPORTED NEGATIVE [facility] [place] Methadone Screen, [...] [place] Tricyclic Antidepressants, Urine Positive Abnormal NEGATIVE [facility] [place], [place] Comment on above: Drug screen results are to be used for medical purposes only. All positive results are unconfirmed. Testing for employment or legal uses should be sent to a reference laboratory for confirmation. HIV Ag/Abon 05-10-2019 HIV Ag/Ab NONREACTIVE Normal NR [facility] Comment on above: Result Comment: No l aboratory evidence of HIV infection. If acute HIV infection is suspected, consider testing for HIV-1 RNA. Performed By: #### H IVCMB, PHEP #### [facility] [employer] [address] [place] [address] Software Engineer Web Applications: Dom Fowler MD #### CP #### [facility] [address] [place] [address] [place] [place], [place] [phone] Software Engineer Web Applications: Shakeel Graham MD Hepatitis Acute [facility] 05-10 Hep A Ab,IgM NONREACTIVE Normal [facility] Comment on above: Performed By: #### H IVCMB, PHEP #### [address] [address] Software Engineer Web Applications: Dom Fowler MD #### CP #### [address] [place], [place] [phone] Software Engineer Web Applications: Shakeel Graham MD Hep B Core Ab,IgM NONREACTIVE Normal [facility] Comment on above: Performed By: #### H IVCMB, PHEP #### [address] [address] Software Engineer Web Applications: Dom Fowler MD #### CP #### [facility] [address] [place] [address] Dr. [place], [place] [phone] Software Engineer Web Applications: Shakeel Graham MD Hep B Surf Ag NONREACTIVE Normal [facility] Comment on above: Performed By: #### H IVCMB, PHEP #### [address] [address] Software Engineer Web Applications: Dom Fowler MD #### CP #### [address] [place], [place] [phone] Software Engineer Web Applications: Shakeel Graham MD Hep C Ab REACTIVE Abnormal [facility] Comment on above: Result Comment: The hepatitis [...] Performed By: #### H IVCMB, PHEP #### [address] [address] Software Engineer Web Applications: Dom Fowler MD #### CP #### [address] [place], [place] [phone] Software Engineer Web Applications: Shakeel Graham MD Comp Metabolic Profon 2018 (cont.) Normal [facility] Comment on above: Result Comment: Aver age GFR for 20-29 years old: 116 mL/min/1.73sq m Chronic Kidney Disease: <60 mL/min/1.73sq m Kidney failure: <15 mL/min/1.73sq m eGFR calculated using average adult body mass. Additional eGFR calculator available at: http://www.PulmOne/multiple_crcl_2012.htm Performed By: #### H IVCMB, PHEP #### [address] [address] Software Engineer Web Applications: Dom Fowler MD #### CP #### [facility] [address] [place] [address] Dr. [place], [place] [phone] Software Engineer Web Applications: Shakeel Graham MD Albumin [Mass/Vol] 4.3 g/dL Normal 3.5-5.2 [facility] Comment on above: Performed By: #### H IVCMB, PHEP #### [address] [address] Software Engineer Web Applications: Dom Fowler MD #### CP #### [facility] [address] [place] [address] Dr. [place], [place] [phone] Software Engineer Web Applications: Shakeel Graham MD Albumin/Globulin [Mass ratio] 1.4 {ratio} Normal 1.0-2.5 [facility] Comment on above: Performed By: #### H IVCMB, PHEP #### [address] [address] Software Engineer Web Applications: Dom Fowler MD #### CP #### [facility] [address] [place], [place] [phone] Software Engineer Web Applications: Shakeel Graham MD Alkaline Phos 50 U/L Normal 35-104 [facility] Comment on above: Performed By: #### H IVCMB, PHEP #### [facility] [address] [place] [address] Software Engineer Web Applications: Dom Fowler MD #### CP #### [facility] [address] [place] [address] Dr. [place], [place] [phone] Software Engineer Web Applications: Shakeel Graham MD ALT [Catalytic activity/Vol] 9 U/L Normal 5-33 [facility] Comment on above: Performed By: #### H IVCMB, PHEP #### [address] [address] Software Engineer Web Applications: Dom Fowler MD #### CP #### [address] [place], [place] [phone] Software Engineer Web Applications: Shakeel Graham MD Anion gap [Moles/Vol] 8 mmol/L Low 9-17 [facility] Comment on above: Performed By: #### H IVCMB, PHEP #### [address] [address] Software Engineer Web Applications: Dom Fowler MD #### CP #### [address] [place], [place] [phone] Software Engineer Web Applications: Shakeel Graham MD AST [Catalytic activity/Vol] 15 U/L Normal <32 [facility] Comment on above: Performed By: #### H IVCMB, PHEP #### [address] [address] Software Engineer Web Applications: Dom Fowler MD #### CP #### [address] [place], [place] [phone] Software Engineer Web Applications: Shakeel Graham MD Bilirubin Ql (U) 0.31 mg/dL Normal 0.3-1.2 [facility] Comment on above: Performed By: #### H IVCMB, PHEP #### [facility] [address] [place] [address] Software Engineer Web Applications: Dom Fowler MD #### CP #### [facility] [address] [place], [place] [phone] Software Engineer Web Applications: Shakeel Graham MD BUN/CRE Ratio 20 Normal 9-20 [facility] Comment on above: Performed By: #### H IVCMB, PHEP #### [address] [address] Software Engineer Web Applications: Dom Fowler MD #### CP #### [facility] [address] [place] [phone] Software Engineer Web Applications: Shakeel Graham MD Calcium [Mass/Vol] 9.4 mg/dL Normal 8.6-10.4 [facility] Comment on above: Performed By: #### H IVCMB, PHEP #### [address] [address] Software Engineer Web Applications: Dom Fowler MD #### CP #### [facility] [address] [place] [address] [place]. [place], [place] [phone] Software Engineer Web Applications: Shakeel Graham MD Chloride [Moles/Vol] 102 mmol/L Normal 98-107 [facility] Comment on above: Performed By: #### H IVCMB, PHEP #### [address] [address] Software Engineer Web Applications: Dom Fowler MD #### CP #### [facility] [address] [place], [place] [phone] Software Engineer Web Applications: Shakeel Graham MD CO2 [Moles/Vol] 28 mmol/L Normal 20-31 [facility] Comment on above: Performed By: #### H IVCMB, PHEP #### [address] [address] Software Engineer Web Applications: Dom Fowler MD #### CP #### [facility] [address] [place] [address] Software Engineer Web Applications: Shakeel Graham MD Creatinine [Mass/Vol] 0.92 mg/dL High 0.50-0.90 [facility] Comment on above: Performed By: #### H IVCMB, PHEP #### [address] [address] Software Engineer Web Applications: Dom Fowler MD #### CP #### [facility] [address] [place], [place] [phone] Software Engineer Web Applications: Shakeel Graham MD GFR, Amer >60 Normal >60 [facility] Comment on above: Performed By: #### H IVCMB, PHEP #### [address] [address] Software Engineer Web Applications: Dom Fowler MD #### CP #### [facility] [address] [place] [address] [place]. [place], [place] [phone] Software Engineer Web Applications: Shakeel Graham MD GFR,non Amer >60 Normal >60 [facility] Comment on above: Performed By: #### H IVCMB, PHEP #### [address] [address] Software Engineer Web Applications: Dmo Fowler MD #### CP #### [facility] [address] [place], [place] [phone] Software Engineer Web Applications: Shakeel Graham MD Glucose [Mass/Vol] 91 mg/dL Normal 70-99 [facility] Comment on above: Performed By: #### H IVCMB, PHEP #### [address] [address] Software Engineer Web Applications: Dom Fowler MD #### CP #### [facility] [address] [place] [address] [address]. [place], [place] [phone] Software Engineer Web Applications: Shakeel Graham MD Potassium [Moles/Vol] 4.3 mmol/L Normal 3.7-5.3 [facility] Comment on above: Performed By: #### H IVCMB, PHEP #### [address] [address] Software Engineer Web Applications: Dom Fowler MD #### CP #### [facility] [address] [place] [address] Dr. [place], [place] [phone] Software Engineer Web Applications: Shakeel Graham MD Protein [Mass/Vol] 7.4 g/dL Normal 6.4-8.3 [facility] Comment on above: Performed By: #### H IVCMB, PHEP #### [address] [phone] Software Engineer Web Applications: Dom Fowler MD #### CP #### [facility] [address] [place] [address] [place] [phone] Software Engineer Web Applications: Shakeel Graham MD Sodium [Moles/Vol] 138 mmol/L Normal 135-144 [facility] Comment on above: Performed By: #### H IVCMB, PHEP #### [address] [address] Software Engineer Web Applications: Dom [place]owl[place] MD #### CP #### [address] [place], [place] [phone] Software Engineer Web Applications: Shakeel Graham MD Staging: Normal [facility] Comment on above: Result Comment: Stag e 1: Some kidney damage normal GFR Stage 2: Mild kidney damage GFR 60-89 Stage 3: Moderate kidney damage GFR 30-59 Stage 4: Severe kidney damage GFR 15-29 Stage 5: Severe kidney damage GFR <15 ESRD - chronic treatment by dialysis or transplant Performed By: #### H IVCMB, PHEP #### [address] [place] [phone] Software Engineer Web Applications: Dom Fowler MD #### CP #### [facility] [address] [place] [address] Software Engineer Web Applications: Shakeel Graham MD Urea nitrogen [Mass/Vol] 18 mg/dL Normal 6-20 [facility] Comment on above: Performed By: #### H IVC, PHEP #### [facility] [address] [place], [place] [phone] Software Engineer Web Applications: Dom Fowler MD #### CP #### [facility] [address] [place] [address] Software Engineer Web Applications: Shakeel Graham MD Comprehensive Metabolic Pane [facility] 05-09-2019 Albumin [Mass/Vol] 4.3 g/dL 3.5 - 5.2 g/dL [place], [place] Albumin/Globulin [Mass ratio] 1.4 {ratio} [place], [place] ALP [Catalytic activity/Vol] 50 U/L 35 - 104 U/L [place] ALT [Catalytic activity/Vol] 9 U/L 5 - 33 U/L [place] Anion gap [Moles/Vol] 8 mmol/L Low 9 - 17 mmol/L [place] AST [Catalytic activity/Vol] 15 U/L <32 [place] Bilirubin Ql (U) 0.31 mg/dL 0.3 - 1.2 mg/dL [place], [place] Bun/Cre Ratio 20 [place], [place] Calcium [Mass/Vol] 9.4 mg/dL 8.6 - 10. 4 mg/dL [place] Chloride [Moles/Vol] 102 mmol/L 98 - 107 mmol/L [place] CO2 [Moles/Vol] 28 mmol/L 20 - 31 mmol/L [place] Creatinine [Mass/Vol] 0.92 mg/dL High 0.5 - 0.9 mg/dL [place] GFR >60 >60 mL/min [place] GFR Non- >60 >60 mL/min [place] Glucose [Mass/Vol] 91 mg/dL 70 - 99 mg/dL [place], [place] Interpretation and review of laboratory results Abnormal [place] Potassium [Moles/Vol] 4.3 mmol/L 3.7 - 5.3 mmol/L [place] Protein [Mass/Vol] 7.4 g/dL 6.4 - 8.3 g/dL [place], [place] Sodium [Moles/Vol] 138 mmol/L 135 - 144 mmol/L [place] Urea nitrogen [Mass/Vol] 18 mg/dL 6 - 20 mg/dL [place] Hepatitis Panel, Acuteon HAV IgM IA Qn (S) NONREACTIVE NONREACTIVE [place] Hep B Core Ab, IgM NONREACTIVE NONREACTIVE [place] Hepatitis B Surface Ag NONREACTIVE NONREACTIVE [place] Hepatitis C Ab REACTIVE Abnormal NONREACTIVE [place], [place] Comment on above: The hepatitis C [...] Interpretation and review of laboratory results Abnormal [place] Metabolic Panelon 05-09-2019 GFR/1.73 sq M predicted among non-blacks MDRD (S/P/Bld) [Vol rate/Area] [place], [place] Comment on above: Average GFR for 20-2 9 years old: 116 mL/min/1.73sq m Chronic Kidney Disease: <60 mL/min/1.73sq m Kidney failure: <15 mL/min/1.73sq m eGFR calculated using average adult body mass. Additional eGFR calculator available at: http://www.JumpPost.Spring/multiple_crcl_2012.htm Stage 1: Some kidney damage normal GFR Stage 2: Mild kidney damage GFR 60-89 Stage 3: Moderate kidney damage GFR 30-59 Stage 4: Severe kidney damage GFR 15-29 Stage 5: Severe kidney damage GFR <15 ESRD - chronic treatment by dialysis or transplant Drug Scr, Abuse, Uron 2017 Amphetamine(s),Ur Positive Abnormal NEG [facility] Comment on above: Result Comment: (Pos itive cutoff 1000 ng/mL) Performed By: #### D AU ####[address] [address] Barbiturate(s),Ur Negative Normal NEG [facility] Comment on above: Result Comment: (Pos itive cutoff 200 ng/mL) Performed By: #### D AU ####[address] [address] Base excess Negative Normal NEG [facility] Comment on above: Result Comment: (Pos itive cutoff 300 ng/mL) Performed By: #### D AU ####[address] [address] Benzodiazepine(s) Negative Normal NEG [facility] Comment on above: Result Comment: (Pos itive cutoff 200 ng/mL) Performed By: #### D AU ####[address] [address] Cannabinoid(s),Ur Negative Normal NEG [facility] Comment on above: Result Comment: (Pos itive cutoff 50 ng/mL) Performed By: #### D AU ####[address] [address] Interpretive Info Assay provides medical screening only. The absence of expected drug(s) and/or Normal [facility] Comment on above: Result Comment: meta bolite(s) may indicate diluted or adulterated urine, limitations of testing or timing of collection.Testing for legal purposes should be confirmed by another method. To request confirmation of test result, please call the lab within 7 days of sample submission.Performed at [address] [place] [address] Performed By: #### D AU ####[address] [address] Opiate(s), Ur Negative Normal NEG [facility] Comment on above: Result Comment: (Pos itive cutoff 300 ng/mL) Performed By: #### D AU ####[address] [address] Oxycodone, Urine Negative Normal NEG [facility] Comment on above: Result Comment: (Pos itive cutoff 100 ng/mL) Performed By: #### D AU ####[address] [address] Phencyclidine, Ur Negative Normal NEG [facility] Comment on above: Result Comment: (Pos itive cutoff 25 ng/mL) Performed By: #### D AU ####[address] [address] Urine, methadone presence Negative Normal NEG [facility] Comment on above: Result Comment: (Pos itive cutoff 300 ng/mL) Performed By: #### D AU ####[address] [address] Buprenorphrine, Ur NOT REPORTED Normal NEG [facility] Comment on above: Performed By: #### D AU ####[address] [address] MDMA, Urine NOT REPORTED Normal NEG [facility] Comment on above: Performed By: #### D AU ####[address] [place] [address] Methamphetamine, Ur NOT REPORTED Normal NEG [facility] Comment on above: Performed By: #### D AU ####[address] [place] [address] Propoxyphene,Urine NOT REPORTED Normal NEG [facility] Comment on above: Performed By: #### D AU ####[address] [address] Urine, tricyclic antidepressants NOT REPORTED Normal NEG [facility] Comment on above: Performed By: #### D AU ####[address] [address] Lipid Profileon 11-05-2017 Cholesterol 137 mg/dL Normal <200 [facility] Comment on above: Result Comment: Chol esterol Guidelines: <200 Desirable 200-240 Borderline >240 Undesirable Performed By: #### L IPR ####[address] [address] Cholesterol to HDL Ratio 4.3 {ratio} Normal <5 [facility] Comment on above: Performed By: #### L IPR ####[address] [address] HDL Cholesterol 32 mg/dL Low >40 [facility] Comment on above: Result Comment: HDL Guidelines: <40 Undesirable 40-59 Borderline >59 Desirable Performed By: #### L IPR ####[address] [address] LDL Cholesterol 82 mg/dL Normal 0-130 [facility] Comment on above: Result Comment: LDL Guidelines: <100 Desirable 100-129 Near to/above Desirable 130-159 Borderline >159 UndesirableDirect (measured) LDL and calculated LDL are not interchangeable tests. Performed By: #### L IPR ####[address] [address] Triglyceride 113 mg/dL Normal <150 [facility] Comment on above: Result Comment: Trig lyceride Guidelines: <150 Desirable 150- 199 Borderline 200-499 High >499 Very high Based on AHA Guidelines for fasting triglyceride, June 2012.Performed at [facility] [address] [facility] [place] [address] Performed By: #### L IPR ####[facility] [facility] [place] [address] Cholesterol in VLDL mass conc NOT REPORTED Normal 10-16 [facility] Comment on above: Performed By: #### L IPR ####[facility] [facility] [place] [address] Encounters Encounter Date Encounter Type Care Provider [...] ambulatory DR RODO MENCHACA Facility:H1 Start: 10-25-2022 [facility] Facility:H1 Start: 10-11-2022 End: 10-11-[address] CHRISTINE SÁNCHEZ Facility:H1 Start: 09-12-2022 End: 09-13-[address] YOUSIF APARICIO . Facility:H1 Start: 08-19-2022 Encounter for preprocedural laboratory examination DR YOUSIF APARICIO . [facility] Start: 08-18-2022 End: 08-18-[address] YOUSIF APARICIO . Facility:H1 Start: 08-16-2022 End: 08-17-[address] YOUSIF APARICIO . Facility:[facility]1 Start: 08-16-2022 End: 08-17-2022 Encounter for preprocedural laboratory examination DR YOUSIF APARICIO . Facility:H1 Start: 08-14-2022 End: 08-15-2022 [facility] Facility:[facility]1 Start: 07-27-2022 End: 07-28-[address] YOUSIF APARICIO . Facility:H1 Start: 07-09-2022 End: 07-09-[address] ELISEO HARDING Facility:H1 Start: 12-12-2021 Telephone encounter King zee MD Work Phone: Hematology/Oncology Comment on above: Lab Orders Start: 10-28-2021 Chart abstracting King fleming MD Work Phone: Hematology/Oncology Start: 04-26-2020 End: 04-27-2020 Patient encounter procedure ANTHONY PABON [facility] Start: 04-26-2020 End: 04-26-2020 Subsequent hospital visit by physician Rochelle ALFRED Laboratory Start: 03-16-2020 End: 03-17-2020 Emergency department patient visit [place] [facility] Start: 11-20-2019 End: 11-21-2019 Patient encounter procedure [place] [facility] Start: 11-20-2019 End: 11-20-2019 Subsequent hospital visit by physician Rochelle ALFRED Laboratory Comment on above: History of miscarria ge, currently ; Amenorrhea; Positive urine test; Encounter for supervision of normal in first trimester, unspecified ; Spotting in early Start: 06-19-2019 End: 06-20-2019 Patient encounter procedure [place] Judith [facility] Start: 06-19-2019 End: 06-19-2019 Subsequent hospital visit by physician Rochelle ALFRED Laboratory Comment on above: Amenorrhea; Positive urine test; Encounter for supervision of normal in first trimester, unspecified ; Spotting in early Start: 05-09-2019 End: 05-10-2019 Patient encounter procedure KADI SCHROEDER [facility] Start: 05-09-2019 End: 05-09-2019 Subsequent hospital visit by physician Rochelle ALFRED Laboratory Start: 11-05-2017 End: 11-07-2017 Evaluation and management of inpatient ANGELO SPICER [facility] Procedures Date Procedure Procedure Detail Performing Clinician Start: 04-26-2020 Acute hepatitis panel D DELLA SCHROEDER Start: 04-26-2020 Antibody hiv-1&hiv-2 single result KADI DESTINY Start: 04-26-2020 Blood count complete automated KADI DESTINY Start: 04-26-2020 Comprehensive metabo lic panel KADI DESTINY Start: 04-26-2020 Gonadotropin chorion ic qualitative KADI DESTINY Start: 04-26-2020 Iadna hepatitis c qu ant & reverse bolt threader KADI DESTINY Start: 04-26-2020 Acute hepatitis panel E loly Pabon Work Phone: Start: 04-26-2020 Antibody hiv-1&hiv-2 single result Anthony Pabon Work Phone: Start: 04-26-2020 Blood count complete automated Anthony Pabon Work Phone: Start: 04-26-2020 Comprehensive metabo lic panel Anthony Pabon Work Phone: Start: 04-26-2020 Gonadotropin chorion ic qualitative Anthony Pabon Work Phone: Start: 04-26-2020 Urinalysis microscopic only Anthnoy Pabon Work Phone: Start: 04-26-2020 Urnls dip [...] VIKA SPICER Start: 11-05-2017 Lipid panel ANGELO BUDGET EXAMINER Start: 11-05-2017 DIET GENERAL ANGELO BUDGET EXAMINER Start: 11-05-2017 FULL CODE ANGELO BUDGET EXAMINER Start: 11-05-2017 IP CONSULT TO HISTOR Y [...] deficiency anemia type Expected: 12/12/2021, Expires: 02/11/2022 [facility] Work Phone: Comment on above: Expected: 12/12/2021 , Expires: 02/11/2022 Start: 05-18-2021 Influenza vaccination INFLUENZA (#1) [facility] Start: 06-26-2020 Cervical cancer screen [facility]ervical can[facility] er screen [place] Comment on above: Postponed from 01/11 (Not Indicated) Start: 06-26-2020 Screening for malign ant neoplasm of cervix Cervical cancer screen [place] Comment on above: Postponed from 01/11 (Not Indicated) Start: 05-18-2020 Influenza vaccination Flu vaccine (# 1) [facility] [place] Start: 11-21-2019 End: 11-21-2019 Ancillary Procedure 11/21/2019 Ancillary Procedure Obstetrics and Gynecology [facility] Start: 06-26-2019 End: 06-26-2019 Routine 06/26/2019 Routine Obstetrics and Gynecology Georgette Leung APRN - [address] [place] [address] [phone] [facility] [employer] Start: 05-18-2019 Influenza vaccination Flu vaccine (# 1) [place], [place] Start: 2015 Cervical cancer screen Cervical canc er screen [place] Start: 2015 PAP TESTING PAP TESTING [facility] Start: 2013 DTaP/Tdap/Td vaccine (1 - Tdap) DTaP/Tdap/Td vaccine (1 - Tdap) [place] Start: 2013 Urine microalbumin profile DTAP,TDAP,TD (1 - Tdap) [facility] Start: 01-12-2012 HEPATITIS C SCREENING HEPATITIS C SC REENING [facility] Start: 01-12-2012 HIV SCREENING HIV SCREENING [facility] Start: 2009 HPV vaccine (1 - Fem larissa 3-dose series) HPV vaccine (1 - Female 3-dose series) [place] Start: 2007 Varicella Vaccine (1 of 2 - 13+ 2-dose series) Varicella Vaccine (1 of 2 - 13+ 2-dose series) [place] Start: 2006 Adult depression screening assessment DEPRESSION SCREENING [facility] Start: 2005 DTaP/Tdap/Td vaccine (1 - Tdap) DTaP/Tdap/Td vaccine (1 - Tdap) [place] Start: 2005 HPV vaccine (1 - 2-d ose series) HPV vaccine (1 - 2-dose series) [place] Start: 2005 HPV vaccine (1 - Fem larissa 2-dose series) HPV vaccine (1 - Female 2-dose series) [place] Start: 01-12-2000 Pneumococcal 0-64 ye ars Vaccine (1 of 1 - PPSV23) Pneumococcal 0-64 years Vaccine (1 of 1 - PPSV23) [place] Start: 1999 COVID-19 VACCINE (1) COVID-19 VACCIN E (1) [facility] Start: 1995 Varicella vaccine (1 of 2 - 2-dose childhood series) Varicella vaccine (1 of 2 - 2-dose childhood series) [place] End: 11-20-2019 Bacteria identified Cx Nom (U) Urine Culture Microbiology Routine Amenorrhea Positive urine test Encounter for supervision of normal in first trimester, unspecified 1 Occurrences starting 11/20/2019 until 11/20/2019 [place] Comment on above: 1 Occurrences starti ng 11/20/2019 until 11/20/2019 Bacteria identified Cx Nom (U) [place] End: 06-19-2019 Bacteria identified Cx Nom (U) Urine Culture Microbiology Routine Amenorrhea Positive urine test Encounter for supervision of normal in first trimester, unspecified 1 Occurrences starting 06/19/2019 until 06/19/2019 [place] Comment on above: 1 Occurrences starti ng 06/19/2019 until 06/19/2019 End: 11-20-2019 C.trachomatis N.gonorrhoeae DNA, Urine C.trachomatis N.gonorrhoeae DNA, Urine Microbiology Routine Amenorrhea Positive urine test Encounter for supervision of normal in first trimester, unspecified 1 Occurrences starting 11/20/2019 until 11/20/2019 [place] Comment on above: 1 Occurrences starti ng 11/20/2019 until 11/20/2019 C.trachomatis N.gonorrhoeae DNA, Urine [place] End: 06-19-2019 C.trachomatis N.gonorrhoeae DNA, Urine C.trachomatis N.gonorrhoeae DNA, Urine Microbiology Routine Amenorrhea Positive urine test Encounter for supervision of normal in first trimester, unspecified 1 Occurrences starting 06/19/2019 until 06/19/2019 [place] Comment on above: 1 Occurrences starti ng 06/19/2019 until 06/19/2019 End: 04-26-2020 Hepatitis C RNA, quantitative, PCR Hepatitis C RNA, quantitative, PCR Lab Routine Once for 1 Occurrences starting 04/26/2020 until 04/26/2020 [place] Comment on above: Once for 1 Occurrenc es starting 04/26/2020 until 04/26/2020 Hepatitis C RNA, quantitative, PCR Hepatitis C RNA, quantitative, PCR Lab Routine 04/26/2020 7:30 AM EDT [place] End: 05-09-2019 HIV Screen HIV Screen Lab Routine Once for 1 Occurrences [facility] 05/09/2019 until 05/09[facility]: Once for 1 Occurrenc es starting 05/09/2019 until 05/09/2019 HIV Screen HIV Screen Lab R outine 05/09/2019 2[facility]53 PM [facility] PROF ILE I Lab Routine Amenorrhea Positive urine test Encounter for supervision of normal in first trimester, unspecified 11/20/2019 12:26 PM EST [facility] Payers Date Payer Category Payer Medicaid [employer] [id number] 2020-Present [phone] [address] [facility] [place] [address] Medicaid [id number] 2020 Unknown 2016 Unknown [facility] xxxxxxxxxxxx 2016-Present [phone] [address] [facility] [place] [address] xxxxxxxxxxxx [id number] 1994 Unknown [id number] 2..840.1.651527.3.579.2.196 1994 Unknown [id number] 2.16.840.1.264396.3.579.2.173 1994 Unknown [id number] 2.16.840.1.691519.3.579.2.173 1994 Unknown [id number] 2.16.840.1.052019.3.579.2.173 1994 Unknown [id number] 2.16.840.1.278583.3.579.2.173 1994 Unknown [id number] 2.16.840.1.167952.3.579.2.593 1994 Unknown [id number] 2.16.840.1.924816.3.579.2.593 1994 Unknown [id number] 2.16.840.1.775997.3.579.2.593 1994 Unknown [id number] 2.16.840.1.579105.3.579.2.593 1994 Unknown [id number] 2.16.840.1.107912.3.579.2.593 1994 Unknown [id number] 2.16.840.1.099439.3.579.2.593 1994 Unknown [id number] 2.16.840.1.758398.3.579.2.593 1994 Unknown [id number] 2.16.840.1.539881.3.579.2.593 1994 Unknown [id number] 2.16.840.1.335530.3.579.2.593 1994 Unknown [id number] 2.16.840.1.572723.3.579.2.593 1994 Unknown [id number] 2.16.840.1.029267.3.579.2.125 9 1994 Unknown [id number] 2.16.840.1.418039.3.579.2.125 9 1994 Unknown [id number] 2.16.840.1.207472.3.579.2.125 9 1994 Unknown [id number] 2.16.840.1.174232.3.579.2.125 9 1959 Unknown [id number] Social History Date Type Detail Facility Start: 11-05-2017 End: 10-28-2021 Tobacco smoking status MDIS Never smoker [facility] Start: 11-05-2017 End: 06-19-2019 Alcohol intake No [place] Start: 1994 Sex Assigned At Not on file [place] Start: 06-19-2019 End: 11-20-2019 Tobacco smoking status NHIS Current every day smoker [facility] Start: 06-19-2019 End: 11-20-2019 Cigarettes smoked current (pack per day) - Reported [facility] Start: 11-20-2019 Alcohol intake Current non-dr edge inker uppers of alcohol (finding) [facility] Start: 05-01-2019 Margie hernández [facility] Start: 11-20-2019 End: 10-28-2021 Tobacco use and exposure Never used [facility] Start: 10-28-2021 End: 11-08-2021 Alcohol intake Ex-drinker (finding) [facility] Clinical Note 08-18-2022 Note Date & Type Note Facility 08-18-2022 Note OPERATIVE NOTE OPERATION DATE: 08/18/2022 PROCEDURE: Suction D AND C. PREOPERATIVE DIAGNOSIS: Missed . POSTOPERATIVE DIAGNOSIS: Missed . ANESTHESIA: General. SURGEON: Yousif Aparicio D.O. CAR INSTALLATIONS SUPERVISOR: None. BLOOD LOSS: 75 mL. URINE OUTPUT: [...] products of conception were removed using a 10-Belgian suction curette. Excellent hemostasis was noted. The patient tolerated the procedure well. Sponge, lap, and needle counts were correct x 2. All instruments were then removed from the patient's vagina. The patient was taken to the Recovery Room in stable condition. ?? [facility] Note 12-12-2021 Telephone Encounter - December - 12/12/2021 11:16 AM EDT Note Date & Type Note Facility 12-12-2021 Miscellaneous Notes Pleases sign pending new cbc order. Thanks, Angelia Almazan MA documented in this encounter [facility] Progress note 11-08-2021 Note Date & Type Note Facility 11-08-2021 Note HNO ID: [id number] Author: King Suazo MD Service: ? Author [...] shortness of breath, and is seen at [place] emergency room. Labs revealed a hemoglobin of [...] biceps/brachioradial/patella/achilles. MUSCULOSKELETAL: Neg (more content not included)... 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 DATE CREATED AUTHOR AUTHOR'S ORGANIZ ATION 12/13/2021 [facility] DATE CREATED AUTHOR AUTHOR'S ORGANIZ ATION 12/25/2022 [facility] DATE CREATED AUTHOR AUTHOR'S CHERIE MARTINEZ 10/10/2023 [facility] EPIC Source Comments (unrecognize d section and content) In the event this informatio n is protected by the Federal Confidentiality of Alcohol and Drug Abuse Patient Records regulations: The Federal rules restrict any use of the information to criminally investigate or prosecute any alcohol or drug abuse patient.[facility] event this information is protected by the Federal Confidentiality of Alcohol and Drug Abuse Patient Records regulations: The Federal rules restrict any use of the information to criminally investigate or prosecute any alcohol or drug abuse patient.[facility] Reason for Visit (unrecogniz ed section and content) Reason Comments Lab Orders Care Teams (unrecognized sec tion and content) Pc Analyst Relationship Specialty Start Date End Date Rodo Menchaca [address] [place] [address] PCP - General Family Practice 11/08/21 FOR [...] BE BASED ON THE PRIMARY CLINICAL RECORDS. [facility] [employer] provides no warranty or guarantee of the accuracy or completeness of information in this document.
--- OUTSIDE RECORDS SUMMARY | 2023-10-26 07:20 | XMS_ITS | CCD ---
Author Name Unknown Address [id number] [place] [address] Organization [facility] Care Team Providers Care Scanning Manager Name Role Phone ANGELO SPICER Unavailable Unavailable LIGIA SPICEREEP Unavailable Unavailable ROCHELLE WILLAMS Unavailable Unavailable Rochelle Willams Primary Care Provider Lima Cornell Attending Unavailab le Rochelle Willams Primary Care Provider [phone] KADI SCHROEDER Referring Unavailable ROCHELLE WILLAMS Primary Care Unavailable POOL, GEORGETTE E Referring Unavailable ROCHELLE WILLAMS Primary Care Unavailable POOL, GEORGETTE E Referring Unavailable ROCHELLE WILLAMS Primary Care Unavailable ANTHONY PABON Referring Unavailable ROCHELLE WILLAMS Primary Care Unavailable Unavailable Primary Care Provider UnavailRodo Carson Primary Care Provider [phone] [facility] Primary Care Unavaila ble [...] Unavailable [facility] Primary Care Unavaila YMLES Serna Consulting Unavailable IVAN KONG Consulting Unavailable [...] Unavailable NADERER, DR RODO Dickerson Admitting Unavailable [facility] Primary Care Unavaila ble GRECHNY ., ADELITA ORELLANA Consulting Unavailluis CAMARILLO, MYLES Alex Consulting Unavailable GAYE, GURU Consulting Unavailable ALFREDDOYOSEPH, ALIX Consulting Unavailable LINA, KAMILLA Consulting Unavailable SISTER, DANIELA Consulting Unavailable ROBBY ., DR MENENDEZ Consulting Unavailable [facility] Primary Care Unavaila ble ROBBY ., DR MENENDEZ Attending Unavailable ROBBY ., DR MENENDEZ Admitting Unavailable ELENITA, NGOC Consulting Unavailable GEMBUS, AUGUSTUS Consulting Unavailable [facility] Primary Care Unavaila ble ROBBY ., DR MENENDEZ Consulting Unavailable ROBBY ., DR MENENDEZ Attending Unavailable ROBBY ., DR MENENDEZ Admitting Unavailable ZIEBER, DR CHRISTINE Benites Consulting Unavailable ROBBY ., DR MENENDEZ Consulting Unavailable [facility] Primary Care Unavaila ble ROBBY [...] Propensity to adverse reactions to drug (disorder) [facility] Repository Medications Current Medications Medication Drug [...] Onset: 11-05-2017 Other aftercare (1 source) Other fci (current) drug therapy; Translations: [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 Hemanth Kerr CBC AUTO DIFFon 11-29-2022 BASO # 0.0 103/ul Normal 0.0-0.1 [facility] Comment on above: Performed By: #### C BC #### [facility] [address] [place] [address] Dr. Hemanth Kerr Basophils/100 WBC (Bld) 0.7 % Normal 0.2-2.0 [facility] Comment on above: Performed By: #### C BC #### [facility] [address] [place] [address] Dr. Hemanth Kerr EO # 0.2 103/ul Normal 0.0-0.7 [facility] Comment on above: Performed By: #### C BC #### [facility] [address] [place] [address] Dr. Hemanth Kerr Eosinophils/100 WBC (Bld) 3.3 % Normal 0.9-7.0 [facility] Comment on above: Performed By: #### C BC #### [facility] [address] [place] [address] Dr. Hemanth Kerr Erythrocyte distribution width (RBC) [Ratio] 14.3 % Normal 11.0-15.0 [facility] Comment on above: Performed By: #### C BC #### [facility] [address] [place] [address] Dr. Hemanth Kerr Hematocrit (Bld) [Volume fraction] 37.2 % Normal 36.0-48.0 [facility] Comment on above: Performed By: #### C BC #### [facility] [address] [place] [address] Dr. Hemanth Kerr Hemoglobin (Bld) [Mass/Vol] 11.9 g/dL Critically low 12.0-16.0 [facility] Comment on above: Performed By: #### C BC #### [facility] [address] [place] [address] Dr. Hemanth Kerr IG # 0.01 10e3/ul Normal 0.00-0.03 [facility] Comment on above: Performed By: #### C BC #### [facility] [address] [place] [address] Dr. Hemanth Kerr IG % 0.2 % Normal 0.0-0.5 [facility] Comment on above: Performed By: #### C BC #### [facility] [address] [place] [address] Dr. Hemanth Kerr LYMPH # 1.7 103/ul Normal 1.2-3.8 [facility] Comment on above: Performed By: #### C BC #### [facility] [address] [place] [address] Dr. Hemanth Kerr Lymphocytes/100 WBC (Bld) 31.3 % Normal 20.5-60.0 [facility] Comment on above: Performed By: #### C BC #### [facility] [address] [place] [address] Dr. Hemanth Kerr MANUAL DIFF REQ NO Normal [facility] Comment on above: Performed By: #### C BC #### [facility] [address] [place] [address] Dr. Hemanth Kerr MCH (RBC) [Entitic mass] 27.8 pg Normal 26.7-34.0 [facility] Comment on above: Performed By: #### C BC #### [facility] [address] [place] [address] Dr. Hemanth Kerr MCHC (RBC) [Mass/Vol] 32.0 g/dL Normal 29.9-35.2 [facility] Comment on above: Performed By: #### C BC #### [facility] [address] [place] [address] Dr. Hemanth Kerr MCV (RBC) [Entitic vol] 86.9 fL Normal 81.0-99.0 [facility] Comment on above: Performed By: #### C BC #### [facility] [address] [place] [address] Dr. Hemanth Kerr MONO # 0.4 103/ul Normal 0.3-0.8 [facility] Comment on above: Performed By: #### C BC #### [facility] [address] [place] [address] Dr. Hemanth Kerr Monocytes/100 WBC (Bld) 8.0 % Normal 1.7-12.0 [facility] Comment on above: Performed By: #### C BC #### [facility] [address] [address] [address] Hemanth Kerr NEUT # 3.1 103/ul Normal 1.4-6.5 [facility] Comment on above: Performed By: #### C BC #### [facility] [address] [place] [address] Dr. Hemanth Kerr Neutrophils/100 WBC (Bld) 56.5 % Normal 43.0-75.0 [facility] Comment on above: Performed By: #### C BC #### [facility] [address] [place] [address] Dr. Hemanth Kerr Platelet mean volume (Bld) [Entitic vol] 10.3 fL Normal 9.5-13.5 [facility] Comment on above: Performed By: #### C BC #### [facility] [address] [place] [address] Dr. Hemanth Kerr PLT 258 103/ul Normal 150-450 [facility] Comment on above: Performed By: #### C BC #### [facility] [address] [place] [address] Dr. Hemanth Kerr RBC 4.28 106/ul Normal 4.20-5.40 [facility] Comment on above: Performed By: #### C BC #### [facility] [address] [place] [address] Dr. Hemanth Kerr WBC 5.4 103/ul Normal 4.0-11.0 [facility] Comment on above: Performed By: #### C BC #### [facility] [address] [place] [address] Dr. Hemanth Kerr PROF 14(COMP METB)on 023 Albumin [Mass/Vol] 3.1 g/dL Critically low 3.4-5.0 [facility] Comment on above: Performed By: #### C MP #### [facility] [address] [place] [address] Dr. Hemanth Kerr Albumin/Globulin [Mass ratio] 1.3 {ratio} Normal [facility] Comment on above: Performed By: #### C MP #### [facility] [address] [address] [address] Hemanth Kerr ALP [Catalytic activity/Vol] 56 U/L Normal 46-116 [facility] Comment on above: Performed By: #### C MP #### [facility] [address] [address] [address] Hemanth Kerr ALT [Catalytic activity/Vol] 34 U/L Normal 14-59 [facility] Comment on above: Performed By: #### C MP #### [facility] [address] [place] [address] Dr. Hemanth Kerr Anion gap [Moles/Vol] 7.0 mmol/L Normal [facility] Comment on above: Performed By: #### C MP #### [facility] [address] [place] [address] Dr. Hemanth Kerr AST [Catalytic activity/Vol] 29 U/L Normal 15-37 [facility] Comment on above: Performed By: #### C MP #### [facility] [address] [place] [address] Dr. Hemanth Kerr Bilirubin [Mass/Vol] 0.4 mg/dL Normal 0.2-1.0 [facility] Comment on above: Performed By: #### C MP #### [facility] [address] [place] [address] Dr. Hemanth Kerr Calcium [Mass/Vol] 8.3 mg/dL Critically low 8.5-10.1 [facility] Comment on above: Performed By: #### C MP #### [facility] [address] [place] [address] Dr. Hemanth Kerr Chloride [Moles/Vol] 110 mmol/L Critically high 98-107 [facility] Comment on above: Performed By: #### C MP #### [facility] [address] [place] [address] Dr. Hemanth Kerr CO2 [Moles/Vol] 27.6 mmol/L Normal 21.0-32.0 [facility] Comment on above: Performed By: #### C MP #### [facility] [address] [place] [address] Dr. Hemanth Kerr Creatinine [Mass/Vol] 0.61 mg/dL Normal 0.55-1.02 [facility] Comment on above: Performed By: #### C MP #### [facility] [address] [place] [address] Dr. Hemanth Kerr EGFR-AF IRANIAN >60 Normal >=60 [facility] Comment on above: Performed By: #### C MP #### [facility] [address] [address] [address] Hemanth Kerr EGFR-NON AF IRANIAN >60 Normal >=60 [facility] Comment on above: Performed By: #### C MP #### [facility] [address] [place] [address] Dr. Hemanth Kerr Globulin (S) [Mass/Vol] 2.4 g/dL Normal [facility] Comment on above: Performed By: #### C MP #### [facility] [address] [place] [address] Dr. Hemanth Kerr Glucose [Mass/Vol] 110 mg/dL Critically high 74-106 [facility] Comment on above: Performed By: #### C MP #### [facility] [address] [place] [address] Dr. Hemanth Kerr Potassium [Moles/Vol] 2.6 mmol/L Critically low 3.5-5.1 [facility] Comment on above: Performed By: #### C MP #### [facility] [address] [place] [address] Dr. Hemanth Kerr Protein [Mass/Vol] 5.5 g/dL Critically low 6.4-8.2 [facility] Comment on above: Performed By: #### C MP #### [facility] [address] [place] [address] Dr. Hemanth Kerr Sodium [Moles/Vol] 142 mmol/L Normal 136-145 [facility] Comment on above: Performed By: #### C MP #### [facility] [address] [place] [address] Dr. Hemanth Kerr Urea nitrogen [Mass/Vol] 12.0 mg/dL Normal 7.0-18.0 [facility] Comment on above: Performed By: #### C MP #### [facility] [address] [address] [address] Hemanth Kerr Urea nitrogen/Creatinine [Mass ratio] 19.7 mg/mg Normal [facility] Comment on above: Performed By: #### C MP #### [facility] [address] [address] [address] Hemanth Kerr XR HIP LT 2 [...] ALIX GRANADOS Date: 2022-11-28 22:13 Normal [facility] ACETAMINOPHENon 11-28-2022 Acetaminophen [Mass/Vol] ug/mL Critically low 10.0-30.0 [facility] Comment on above: Performed By: #### C MP #### [facility] [address] [address] [address] Hemanth Kerr ACETONE SERUMon 11-28-2022 ACETONE Negative Normal NEGATIVE [facility] Comment on above: Performed By: #### P REG #### [facility] [address] [address] [address] Hemanth Kerr AMMONIAon 11-28-2022 Ammonia (P) [Moles/Vol] 24 umol/L Normal - [facility] Comment on above: Performed By: #### L ACT #### [facility] [address] [address] [address] Hemanth Kerr CBC AUTO DIFFon 11-28-2022 BASO # 0.0 103/ul Normal 0.0-0.1 [facility] Comment on above: Performed By: #### L ACT #### [facility] [address] [address] [address] Hemanth Kerr Basophils/100 WBC (Bld) 0.4 % Normal 0.2-2.0 [facility] Comment on above: Performed By: #### L ACT #### [facility] [address] [place] [address] Dr. Hemanth Kerr EO # 0.3 103/ul Normal 0.0-0.7 [facility] Comment on above: Performed By: #### L ACT #### [facility] [address] [place] [address] Dr. Hemanth Kerr Eosinophils/100 WBC (Bld) 3.1 % Normal 0.9-7.0 [facility] Comment on above: Performed By: #### L ACT #### [facility] [address] [place] [address] Dr. Hemanth Kerr Erythrocyte distribution width (RBC) [Ratio] 14.3 % Normal 11.0-15.0 [facility] Comment on above: Performed By: #### L ACT #### [facility] [address] [place] [address] Dr. Hemanth Kerr Hematocrit (Bld) [Volume fraction] 41.3 % Normal 36.0-48.0 [facility] Comment on above: Performed By: #### L ACT #### [facility] [address] [place] [address] Dr. Hemanth Kerr Hemoglobin (Bld) [Mass/Vol] 13.3 g/dL Normal 12.0-16.0 [facility] Comment on above: Performed By: #### L ACT #### [facility] [address] [place] [address] Dr. Hemanth Kerr IG # 0.02 10e3/ul Normal 0.00-0.03 [facility] Comment on above: Performed By: #### L ACT #### [facility] [address] [place] [address] Dr. Hemanth Kerr IG % 0.2 % Normal 0.0-0.5 [facility] Comment on above: Performed By: #### L ACT #### [facility] [address] [place] [address] Dr. Hemanth Kerr LYMPH # 2.4 103/ul Normal 1.2-3.8 [facility] Comment on above: Performed By: #### L ACT #### [facility] [address] [place] [address] Dr. Hemanth eKrr Lymphocytes/100 WBC (Bld) 26.3 % Normal 20.5-60.0 [facility] Comment on above: Performed By: #### L ACT #### [facility] [address] [place] [address] Dr. Hemanth Kerr MANUAL DIFF REQ NO Normal [facility] Comment on above: Performed By: #### L ACT #### [facility] [address] [place] [address] Dr. Hemanth Kerr MCH (RBC) [Entitic mass] 27.4 pg Normal 26.7-34.0 [facility] Comment on above: Performed By: #### L ACT #### [facility] [address] [place] [address] Dr. Hemanth Kerr MCHC (RBC) [Mass/Vol] 32.2 g/dL Normal 29.9-35.2 [facility] Comment on above: Performed By: #### L ACT #### [facility] [address] [place] [address] Dr. Hemanth Kerr MCV (RBC) [Entitic vol] 85.0 fL Normal 81.0-99.0 [facility] Comment on above: Performed By: #### L ACT #### [facility] [address] [place] [address] Dr. Hemanth Kerr MONO # 0.7 103/ul Normal 0.3-0.8 [facility] Comment on above: Performed By: #### L ACT #### [facility] [address] [place] [address] Dr. Hemanth Kerr Monocytes/100 WBC (Bld) 7.3 % Normal 1.7-12.0 [facility] Comment on above: Performed By: #### L ACT #### [facility] [address] [place] [address] Dr. Hemanth Kerr NEUT # 5.7 103/ul Normal 1.4-6.5 [facility] Comment on above: Performed By: #### L ACT #### [facility] [address] [address] [address] Hemanth Kerr Neutrophils/100 WBC (Bld) 62.7 % Normal 43.0-75.0 [facility] Comment on above: Performed By: #### L ACT #### [facility] [address] [address] [address] Hemanth Kerr Platelet mean volume (Bld) [Entitic vol] 10.6 fL Normal 9.5-13.5 [facility] Comment on above: Performed By: #### L ACT #### [facility] [address] [address] [address] Hemanth Kerr PLT 347 103/ul Normal 150-450 [facility] Comment on above: Performed By: #### L ACT #### [facility] [address] [place] [address] Dr. Hemanth Kerr RBC 4.86 106/ul Normal 4.20-5.40 [facility] Comment on above: Performed By: #### L ACT #### [facility] [address] [place] [address] Dr. Hemanth Kerr WBC 9.1 103/ul Normal 4.0-11.0 [facility] Comment on above: Performed By: #### L ACT #### [facility] [address] [place] [address] CSPINE WO CONon [...] KAMILLA MILLS Date: 2022-11-28 17:54 Normal [facility] CT HEAD WO CONon 11-28-2022 CT [...] KAMILLA MILLS Date: 2022-11-28 18:40 Normal [facility] CULTURE BLOODon 11-28-2022 Microscopic examination of blood, culture Culture Observations: NO GROWTH AT 5 DAYS. Normal [facility] Comment on above: Performed By: #### C BC #### [facility] [address] [place] [address] Dr. Hemanth Kerr Microscopic examination of blood, culture Culture Observations: NO GROWTH AT 5 DAYS. Normal [facility] Comment on above: Performed By: #### B [id number] #### [facility] [address] [place] [address] Dr. Hemanth Kerr [facility]15 SARS-CoV-2 (COVID-19) RNA ELMO+probe Ql (Unsp spec) Not detected Normal NOT DETECTED [facility] Comment on above: Result Comment: When [...] for this test is supported by the Lint[employer] Operator of Health and Human Service's declaration [...] used). Performed By: #### L ACT #### [facility] [address] [place] [address] Dr. Hemanth Kerr DRUG SCREEN RAPID (URINE)on 11-28-2022 AMP Positive Abnormal NEGATIVE [facility] Comment on above: Performed By: #### P REG #### [facility] [address] [place] [address] Dr. Hemanth Kerr BAR Negative Normal NEGATIVE [facility] Comment on above: Performed By: #### P REG #### [facility] [address] [place] [address] Dr. Hemanth Kerr BUP Negative Normal NEGATIVE [facility] Comment on above: Performed By: #### P REG #### [facility] [address] [place] [address] Dr. Hemanth Kerr BZO Negative Normal NEGATIVE [facility] Comment on above: Performed By: #### P REG #### [facility] [address] [place] [address] Dr. Hemanth Kerr YOLANDA Negative Normal NEGATIVE [facility] Comment on above: Performed By: #### P REG #### [facility] [address] [place] [address] Dr. Hemanth Kerr CUT-OFFS SEE BELOW Normal [facility] Comment on above: Result Comment: AMP [...] ng/mL Performed By: #### P REG #### [facility] [address] [place] [address] Dr. Hemanth Kerr DRUG CUT HEADER DRUG CLASS TEST SYSTEM CUT-OFF CONCENTRATIONS ARE FOLLOWS: Normal [facility] Comment on above: Performed By: #### P REG #### [facility] [address] [place] [address] Dr. Hemanth Kerr mAMP Positive Abnormal NEGATIVE [facility] Comment on above: Performed By: #### P REG #### [facility] [address] [place] [address] Dr. Hemanth Kerr MTD Negative Normal NEGATIVE [facility] Comment on above: Performed By: #### P REG #### [facility] [address] [place] [address] Dr. Hemanth Kerr OPI Negative Normal NEGATIVE [facility] Comment on above: Performed By: #### P REG #### [facility] [address] [place] [address] Dr. Hemanth Kerr OXY Negative Normal NEGATIVE [facility] Comment on above: Performed By: #### P REG #### [facility] [address] [place] [address] Dr. Hemanth Kerr PCP Negative Normal NEGATIVE [facility] Comment on above: Performed By: #### P REG #### [facility] [address] [place] [address] Dr. Hemanth Kerr PPX Negative Normal NEGATIVE [facility] Comment on above: Performed By: #### P REG #### [facility] [address] [place] [address] Dr. Hemanth Kerr TCA Negative Normal NEGATIVE [facility] Comment on above: Performed By: #### P REG #### [facility] [address] [place] [address] Dr. Hemanth Kerr THC Negative Normal NEGATIVE [facility] Comment on above: Performed By: #### P REG #### [facility] [address] [place] [address] Dr. Hemanth Kerr ER URINE PROFILEon 3 Bilirubin Ql (U) Negative Normal NEGATIVE [facility] Comment on above: Performed By: #### P REG #### [facility] [address] [place] [address] Dr. Hemanth Kerr Clarity (U) CLEAR Normal CLEAR [facility] Comment on above: Performed By: #### P REG #### [facility] [address] [place] [address] Dr. Hemanth Kerr Color (U) LT. YELLOW Normal YELLOW [facility] Comment on above: Performed By: #### P REG #### [facility] [address] [place] [address] Dr. Hemanth Kerr ERUAHD A micrscopic examination will be performed if indicated. Normal [facility] Comment on above: Performed By: #### P REG #### [facility] [address] [place] [address] Dr. Hemanth Kerr Glucose Ql (U) Negative Normal NEGATIVE [facility] Comment on above: Performed By: #### P REG #### [facility] [address] [place] [address] Dr. Hemanth Kerr Hemoglobin Ql (U) Negative Normal NEGATIVE [facility] Comment on above: Performed By: #### P REG #### [facility] [address] [place] [address] Dr. Hemanth Kerr Ketones Ql (U) Negative Normal NEGATIVE [facility] Comment on above: Performed By: #### P REG #### [facility] [address] [place] [address] Dr. Hemanth Kerr LEUKOCYTES Negative Normal NEGATIVE [facility] Comment on above: Performed By: #### P REG #### [facility] [address] [place] [address] Dr. Hemanth Kerr Nitrite Ql (U) Positive Abnormal NEGATIVE [facility] Comment on above: Performed By: #### P REG #### [facility] [address] [place] [address] Dr. Hemanth Kerr pH (U) 7.5 [pH] Normal 5-9 [facility] Comment on above: Performed By: #### P REG #### [facility] [address] [place] [address] Dr. Hemanth Kerr SPEC GRAVITY 1.020 Normal 1.005-<=1.025 [facility] Comment on above: Performed By: #### P REG #### [facility] [address] [place] [address] Dr. Hemanth Kerr UA PROTEIN TRACE Normal NEGATIVE/ TRACE [facility] Comment on above: Performed By: #### P REG #### [facility] [address] [place] [address] Dr. Hemanth Kerr UR MICRO IND INDICATED Normal [facility] Comment on above: Performed By: #### P REG #### [facility] [address] [place] [address] Dr. Hemanth Kerr Urobilinogen Qn (U) 1.0 {Jose'U}/dL Normal 0.2 - 1. 0 [facility] Comment on above: Performed By: #### P REG #### [facility] [address] [place] [address] Dr. Hemanth Kerr ETHANOL (BLD ALC)on 11-29-19 ALC NOTE NOTE: 80 mg/dl is th e legal limit for a blood alcohol level Normal [facility] Comment on above: Performed By: #### C MP #### [facility] [address] [place] [address] Dr. Hemanth Kerr Ethanol [Mass/Vol] mg/dL Normal [facility] Comment on above: Performed By: #### C MP #### [facility] [address] [place] [address] Dr. Hemanth Kerr LACTATE/LACTIC ACIDon 2022 Lactate [Moles/Vol] 0.7 mmol/L Normal 0.4-2.0 [facility] Comment on above: Performed By: #### L ACT #### [facility] [address] [address] [address] Hemanth Kerr Lactate [Moles/Vol] 9.0 mmol/L Critically high 0.4-2.0 [facility] Comment on above: Performed By: #### L ACT #### [facility] [facility] [address] [address] [address] Hemanth Kerr PH VENOUS BLOODon 11-28-2022 PCO2 VENOUS 36.6 mmHg Critically low 40.0-52.0 [facility] Comment on above: Performed By: #### P HVEN #### [facility] [address] [place] [address] Dr. Hemanth Kerr pH VENOUS 7.354 Normal 7.330-7.430 [facility] Comment on above: Performed By: #### P HVEN #### [facility] [address] [address] [address] Hemanth Kerr POINT OF CARE GLUCOSEon 11-15 Glucose [Mass/Vol] 127 mg/dL Critically high 74-106 [facility] Comment on above: Performed By: #### C BC #### [facility] [address] [place] [address] Dr. Hemanth Kerr PREG HCG QUALon 11-28-2022 , QUAL Negative Normal NEGATIVE [facility] Comment on above: Performed By: #### P REG #### [facility] [address] [place] [address] Dr. Hemanth Kerr PROF 14(COMP METB)on 023 Albumin [Mass/Vol] 3.7 g/dL Normal 3.4-5.0 [facility] Comment on above: Performed By: #### L ACT #### [facility] [address] [place] [address] Dr. Hemanth Kerr Albumin/Globulin [Mass ratio] 1.3 {ratio} Normal [facility] Comment on above: Performed By: #### L ACT #### [facility] [address] [address] [address] Hemanth Kerr ALP [Catalytic activity/Vol] 72 U/L Normal 46-116 [facility] Comment on above: Performed By: #### L ACT #### [facility] [address] [address] [address] Hemanth Kerr ALT [Catalytic activity/Vol] 42 U/L Normal 14-59 [facility] Comment on above: Performed By: #### L ACT #### [facility] [address] [address] [address] Hemanth Kerr Anion gap [Moles/Vol] 16.3 mmol/L Normal [facility] Comment on above: Performed By: #### L ACT #### [facility] [address] [place] [address] Dr. Hemanth Kerr AST [Catalytic activity/Vol] 45 U/L Critically high 15-37 [facility] Comment on above: Performed By: #### L ACT #### [facility] [address] [place] [address] Dr. Hemanth Kerr Bilirubin [Mass/Vol] 0.4 mg/dL Normal 0.2-1.0 [facility] Comment on above: Performed By: #### L ACT #### [facility] [address] [place] [address] Dr. Hemanth Kerr Calcium [Mass/Vol] 8.8 mg/dL Normal 8.5-10.1 [facility] Comment on above: Performed By: #### L ACT #### [facility] [address] [address] [address] Hemanth Kerr Chloride [Moles/Vol] 107 mmol/L Normal 98-107 [facility] Comment on above: Performed By: #### L ACT #### [facility] [address] [place] [address] Dr. Hemanth Kerr CO2 [Moles/Vol] 21.8 mmol/L Normal 21.0-32.0 [facility] Comment on above: Performed By: #### L ACT #### [facility] [id number] Hemanth Kerr Creatinine [Mass/Vol] 1.32 mg/dL Critically high 0.55-1.02 [facility] Comment on above: Performed By: #### L ACT #### [facility] [address] [address] [address] Hemanth Kerr EGFR-AF IRANIAN 58 mL/min/1.73m2 Critically low >=60 [facility] Comment on above: Performed By: #### L ACT #### [facility] [address] [address] [address] Hemanth Kerr EGFR-NON AF IRANIAN 48 mL/min/1.73m2 Critically low >=60 [facility] Comment on above: Performed By: #### L ACT #### [facility] [address] [address] [address] Hemanth Kerr Globulin (S) [Mass/Vol] 2.9 g/dL Normal [facility] Comment on above: Performed By: #### L ACT #### [facility] [address] [address] [address] Hemanth Kerr Glucose [Mass/Vol] 143 mg/dL Critically high 74-106 [facility] Comment on above: Performed By: #### L ACT #### [facility] [address] [address] [address] Hemanth Kerr Potassium [Moles/Vol] 3.1 mmol/L Critically low 3.5-5.1 [facility] Comment on above: Performed By: #### L ACT #### [facility] [address] [address] [address] Hemanth Kerr Protein [Mass/Vol] 6.6 g/dL Normal 6.4-8.2 [facility] Comment on above: Performed By: #### L ACT #### [facility] [id number] Hemanth Kerr Sodium [Moles/Vol] 142 mmol/L Normal 136-145 [facility] Comment on above: Performed By: #### L ACT #### [facility] [address] [place] [address] Dr. Hemanth Kerr Urea nitrogen [Mass/Vol] 17.0 mg/dL Normal 7.0-18.0 [facility] Comment on above: Performed By: #### L ACT #### [facility] [address] [place] [address] Dr. Hemanth Kerr Urea nitrogen/Creatinine [Mass ratio] 12.9 mg/mg Normal [facility] Comment on above: Performed By: #### L ACT #### [facility] [address] [place] [address] Dr. Hemanth Kerr PROTIMEon 11-28-2022 INR Coag (PPP) [Relative time] 0.97 {INR} Normal [facility] Comment on above: Performed By: #### P T, PTT #### [facility] [address] [place] [address] Dr. Hemanth Krer INR GUIDELINES SEE BELOW Normal [facility] Comment on above: Result Comment: CHAN RED INR: 2.0 - 3.0 CONDITIONS NOT LISTED BELOW 2.5 - 3.5 FOR PROSTHETIC HEART VALVE REPLACEMENT 2.5 - 3.5 RECURRENT THROMBOSIS Performed By: #### P T, PTT #### [facility] [address] [place] [address] Dr. Hemanth Kerr PT Coag (PPP) [Time] 10.3 s Normal 9.0-11.6 [facility] Comment on above: Performed By: #### P T, PTT #### [facility] [address] [place] [address] Dr. Hemanth Kerr PTTon 11-28-2022 aPTT Coag (Bld) [Time] 25.4 s Normal 22.3-36.2 [facility] Comment on above: Performed By: #### P T, PTT #### [facility] [address] [place] [address] Dr. Hemanth Kerr SALICYLATEon 11-28-2022 SALICYLATE <2.8 Normal <=19.9 [facility] Comment on above: Performed By: #### C MP #### [facility] [address] [place] [address] Dr. Hemanth Kerr TROPONIN, HIGH SENSITIVITYon 11-28-2022 HSTROP 4.2 pg/mL Normal 4.0-51.3 [facility] Comment on above: Result Comment: CUT- OFF POINTS HAVE BEEN ESTABLISHED BASED ON THE FOURTH UNIVERSAL DEFINITIONS OF MYOCARDIAL INFARCTION. THE UPPER REFERENCE LIMIT (URL) OF TROPONIN, DEFINED THE 99TH PERCENTILE OF cTnI DISTRIBUTION IN A REFERENCE POPULATION, HAS BEEN CONFIRMED THE DECISION THRESHOLD FOR CO DIAGNOSIS. Performed By: #### C MP #### [facility] [address] [place] [address] Dr. Hemanth Kerr TSHon 11-28-2022 TSH 3.476 uIU/mL Normal 0.358-3.740 [facility] Comment on above: Performed By: #### L ACT #### [facility] [address] [place] [address] Dr. Hemanth Kerr URINE MICROSCOPIC ONLYon BACTERIA LARGE Abnormal NONE SEEN [facility] Comment on above: Performed By: #### P REG #### [facility] [address] [place] [address] Dr. Hemanth Kerr Bacteria identified Cx Nom (U) INDICATED Normal [facility] Comment on above: Performed By: #### P REG #### [facility] [address] [place] [address] Dr. Hemanth Kerr CAST SEEN Abnormal NONE SEEN [facility] Comment on above: Performed By: #### P REG #### [facility] [address] [place] [address] Dr. Hemanth Kerr COARSE GRANULAR CAST RARE Normal [facility] Comment on above: Performed By: #### P REG #### [facility] [address] [place] [address] Dr. Hemanth Kerr Crystals LM Nom (Urine sed) NONE SEEN Normal NONE SEEN [facility] Comment on above: Performed By: #### P REG #### [facility] [address] [place] [address] Dr. Hemanth Kerr Epithelial cells LM Ql (Urine sed) RARE Normal NONE SEEN /RARE [facility] Comment on above: Performed By: #### P REG #### [facility] [address] [address] [address] Hemanth Kerr MUCOUS NONE SEEN Normal NONE SEEN [facility] Comment on above: Performed By: #### P REG #### [facility] [address] [address] [address] Hemanth Kerr RBC 0-2 Normal 0-2 [facility] Comment on above: Performed By: #### P REG #### [facility] [address] [place] [address] Dr. Hemanth Kerr WBC 2-[address] [facility] Comment on above: Performed By: #### P REG #### [facility] [address] [address] [address] Hemanth Kerr XR CHEST 1 Von [...] by: KAMILLA MILLS Date: 2022-11-28 17:[address] [facility] CULTURE URINEon 10-13-2022 CULTURE URINE Isolate [...] Trimethoprim/Sulfamet hoxazole >=320 R F Normal [facility] Comment on above: Performed By: #### U RCX #### [facility] [address] [address] [address] Hemanth Kerr CBC AUTO DIFFon 10-11-2022 BASO # 0.0 103/ul Normal 0.0-0.1 [facility] Comment on above: Performed By: #### C BC #### [facility] [address] [address] [address] Hemanth Kerr Basophils/100 WBC (Bld) 0.3 % Normal 0.2-2.0 [facility] Comment on above: Performed By: #### C BC #### [facility] [address] [place] [address] Dr. Hemanth Kerr EO # 0.0 103/ul Normal 0.0-0.7 [facility] Comment on above: Performed By: #### C BC #### [facility] [address] [place] [address] Dr. Hemanth Kerr Eosinophils/100 WBC (Bld) 0.4 % Critically low 0.9-7.0 [facility] Comment on above: Performed By: #### C BC #### [facility] [address] [place] [address] Dr. Hemanth Kerr Erythrocyte distribution width (RBC) [Ratio] 12.2 % Normal 11.0-15.0 [facility] Comment on above: Performed By: #### C BC #### [facility] [address] [place] [address] Dr. Hemanth Kerr Hematocrit (Bld) [Volume fraction] 38.6 % Normal 36.0-48.0 [facility] Comment on above: Performed By: #### C BC #### [facility] [address] [place] [address] Dr. Hemanth Kerr Hemoglobin (Bld) [Mass/Vol] 12.0 g/dL Normal 12.0-16.0 [facility] Comment on above: Performed By: #### C BC #### [facility] [address] [place] [address] Dr. Hemanth Kerr IG # 0.07 10e3/ul Critically high 0.00-0.03 [facility] Comment on above: Performed By: #### C BC #### [facility] [address] [address] [address] Hemanth Kerr IG % 0.7 % Critically high 0.0-0.5 [facility] Comment on above: Performed By: #### C BC #### [facility] [address] [place] [address] Dr. Hemanth Kerr LYMPH # 1.2 103/ul Normal 1.2-3.8 [facility] Comment on above: Performed By: #### C BC #### [facility] [address] [place] [address] Dr. Hemanth Kerr Lymphocytes/100 WBC (Bld) 12.1 % Critically low 20.5-60.0 [facility] Comment on above: Performed By: #### C BC #### [facility] [address] [place] [address] Dr. Hemanth Kerr MANUAL DIFF REQ NO Normal [facility] Comment on above: Performed By: #### C BC #### [facility] [address] [place] [address] Dr. Hemanth Kerr MCH (RBC) [Entitic mass] 28.0 pg Normal 26.7-34.0 [facility] Comment on above: Performed By: #### C BC #### [facility] [address] [place] [address] Dr. Hemanth Kerr MCHC (RBC) [Mass/Vol] 31.1 g/dL Normal 29.9-35.2 [facility] Comment on above: Performed By: #### C BC #### [facility] [address] [place] [address] Dr. Hemanth Kerr MCV (RBC) [Entitic vol] 90.2 fL Normal 81.0-99.0 [facility] Comment on above: Performed By: #### C BC #### [facility] [address] [place] [address] Dr. Hemanth Kerr MONO # 0.7 103/ul Normal 0.3-0.8 [facility] Comment on above: Performed By: #### C BC #### [facility] [address] [address] [address] Hemanth Kerr Monocytes/100 WBC (Bld) 6.9 % Normal 1.7-12.0 [facility] Comment on above: Performed By: #### C BC #### [facility] [address] [address] [address] Hemanth Kerr NEUT # 8.1 103/ul Critically high 1.4-6.5 [facility] Comment on above: Performed By: #### C BC #### [facility] [address] [address] [address] Hemanth Kerr Neutrophils/100 WBC (Bld) 79.6 % Critically high 43.0-75.0 [facility] Comment on above: Performed By: #### C BC #### [facility] [address] [place] [address] Dr. Hemanth Kerr Platelet mean volume (Bld) [Entitic vol] 10.8 fL Normal 9.5-13.5 [facility] Comment on above: Performed By: #### C BC #### [facility] [address] [address] [address] Hemanth Kerr PLT 452 103/ul Critically high 150-450 [facility] Comment on above: Performed By: #### C BC #### [facility] [address] [place] [address] Dr. Hemanth Kerr RBC 4.28 106/ul Normal 4.20-5.40 [facility] Comment on above: Performed By: #### C BC #### [facility] [address] [address] [address] Hemanth Kerr WBC 10.1 103/ul Normal 4.0-11.0 [facility] Comment on above: Performed By: #### C BC #### [facility] [address] [place] [address] ABD/PELVIS WO CONon [...] CHRISTINE SÁNCHEZ Date: 2022-10-11 14:45 Normal [facility] ER URINE PROFILEon 3 Bilirubin Ql (U) Negative Normal NEGATIVE [facility] Comment on above: Performed By: #### L ACT #### [facility] [address] [place] [address] Dr. Hemanth Kerr Clarity (U) CLEAR Normal CLEAR [facility] Comment on above: Performed By: #### L ACT #### [facility] [address] [address] [address] Hemanth Kerr Color (U) LT. YELLOW Normal YELLOW [facility] Comment on above: Performed By: #### L ACT #### [facility] [address] [address] [address] Hemanth Kerr ERUAHD A micrscopic examination will be performed if indicated. Normal [facility] Comment on above: Performed By: #### L ACT #### [facility] [address] [address] [address] Hemanth Kerr Glucose Ql (U) Negative Normal NEGATIVE [facility] Comment on above: Performed By: #### L ACT #### [facility] [address] [address] [address] Hemanth Kerr Hemoglobin Ql (U) LARGE Abnormal NEGATIVE [facility] Comment on above: Performed By: #### L ACT #### [facility] [address] [address] [address] Hemanth Kerr Ketones Ql (U) Negative Normal NEGATIVE [facility] Comment on above: Performed By: #### L ACT #### [facility] [address] [place] [address] Dr. Hemanth Kerr LEUKOCYTES SMALL Abnormal NEGATIVE [facility] Comment on above: Performed By: #### L ACT #### [facility] [address] [place] [address] Dr. Hemanth Kerr Nitrite Ql (U) Negative Normal NEGATIVE [facility] Comment on above: Performed By: #### L ACT #### [facility] [address] [address] [address] Hemanth Kerr pH (U) 6.5 [pH] Normal 5-9 [facility] Comment on above: Performed By: #### L ACT #### [facility] [address] [address] [address] Hemanth Kerr Protein (U) [Mass/Vol] 30 mg/dL Abnormal NEGATIVE/ TRACE [facility] Comment on above: Performed By: #### L ACT #### [facility] [address] [place] [address] Dr. Hemanth Kerr SPEC GRAVITY <=1.005 Abnormal 1.005-<=1.025 [facility] Comment on above: Performed By: #### L ACT #### [facility] [address] [address] [address] Hemanth Kerr UR MICRO IND INDICATED Normal [facility] Comment on above: Performed By: #### L ACT #### [facility] [address] [address] [address] Hemanth Kerr Urobilinogen Qn (U) 1.0 {Jose'U}/dL Normal 0.2 - 1. 0 [facility] Comment on above: Performed By: #### L ACT #### [facility] [address] [address] [address] Hemanth Kerr PREG HCG QUALon 10-11-2022 , QUAL Negative Normal NEGATIVE [facility] Comment on above: Performed By: #### P REG #### [facility] [address] [address] [address] Hemanth Kerr PROF CHEM 8 (BAS METB)on Anion gap [Moles/Vol] 9.4 mmol/L Normal [facility] Comment on above: Performed By: #### L ACT #### [facility] [address] [address] [address] Hemanth Kerr Calcium [Mass/Vol] 8.8 mg/dL Normal 8.5-10.1 [facility] Comment on above: Performed By: #### L ACT #### [facility] [address] [address] [address] Hemanth Kerr Chloride [Moles/Vol] 97 mmol/L Critically low 98-107 [facility] Comment on above: Performed By: #### L ACT #### [facility] [address] [address] [address] Hemanth Kerr CO2 [Moles/Vol] 32.4 mmol/L Critically high 21.0-32.0 [facility] Comment on above: Performed By: #### L ACT #### [facility] [address] [address] [address] Hemanth Kerr Creatinine [Mass/Vol] 0.65 mg/dL Normal 0.55-1.02 [facility] Comment on above: Performed By: #### L ACT #### [facility] [address] [address] [address] Hemanth Kerr EGFR-AF IRANIAN >60 Normal >=60 [facility] Comment on above: Performed By: #### L ACT #### [facility] [address] [place] [address] Dr. Hemanth Kerr EGFR-NON AF IRANIAN >60 Normal >=60 [facility] Comment on above: Performed By: #### L ACT #### [facility] [address] [address] [address] Hemanth Kerr Glucose [Mass/Vol] 117 mg/dL Critically high 74-106 [facility] Comment on above: Performed By: #### L ACT #### [facility] [address] [place] [address] Dr. Hemanth Kerr Potassium [Moles/Vol] 2.8 mmol/L Critically low 3.5-5.1 [facility] Comment on above: Performed By: #### L ACT #### [facility] [address] [place] [address] Dr. Hemanth Kerr Sodium [Moles/Vol] 135 mmol/L Critically low 136-145 [facility] Comment on above: Performed By: #### L ACT #### [facility] [address] [place] [address] Dr. Hemanth Kerr Urea nitrogen [Mass/Vol] 8.0 mg/dL Normal 7.0-18.0 [facility] Comment on above: Performed By: #### L ACT #### [facility] [address] [place] [address] Dr. Hemanth Kerr Urea nitrogen/Creatinine [Mass ratio] 12.3 mg/mg Normal [facility] Comment on above: Performed By: #### L ACT #### [facility] [address] [place] [address] Dr. Hemanth Kerr URINE MICROSCOPIC ONLYon BACTERIA SMALL Abnormal NONE SEEN [facility] Comment on above: Performed By: #### L ACT #### [facility] [address] [place] [address] Dr. Hemanth Kerr Bacteria identified Cx Nom (U) INDICATED Normal [facility] Comment on above: Performed By: #### L ACT #### [facility] [address] [place] [address] Dr. Hemanth Kerr CAST NONE SEEN Normal NONE SEEN [facility] Comment on above: Performed By: #### L ACT #### [facility] [address] [place] [address] Dr. Hemanth Kerr Crystals LM Nom (Urine sed) NONE SEEN Normal NONE SEEN [facility] Comment on above: Performed By: #### L ACT #### [facility] [address] [place] [address] Dr. Hemanth Kerr Epithelial cells LM Ql (Urine sed) FEW Abnormal NONE SEEN /RARE [facility] Comment on above: Performed By: #### L ACT #### [facility] [address] [place] [address] Dr. Hemanth Kerr MUCOUS NONE SEEN Normal NONE SEEN [facility] Comment on above: Performed By: #### L ACT #### [facility] [address] [place] [address] Dr. Hemanth Kerr RBC 0-2 Normal 0-2 [facility] Comment on above: Performed By: #### L ACT #### [facility] [address] [place] [address] Dr. Hemanth Krer WBC 10-[address] [facility] Comment on above: Performed By: #### L ACT #### [facility] [address] [place] [address] Dr. Hemanth Kerr PREG QUANT HCGon 09-12-2022 HCG QUANT 66 mIU/mL Normal [facility] Comment on above: Performed By: #### C MP #### [facility] [address] [place] [address] Dr. Hemanth Kerr HCG RANGE SEE BELOW Normal [facility] Comment on above: Result Comment: 5-50 0.2-1 WEEK 50-500 1-2 WEEKS 100-5,000 2-3 WEEKS 500-10,000 3-4 WEEKS 1,000-50,000 4-5 WEEKS 10,000-100,000 5-6 WEEKS 15,000-200,000 6-8 WEEKS 10,000-100,000 2-3 MONTHS Performed By: #### C MP #### [facility] [address] [place] [address] Dr. Hemanth Kerr CBC AUTO DIFFon 11-30-2022 BASO # 0.0 103/ul Normal 0.0-0.1 [facility] Comment on above: Performed By: #### L ACT #### [facility] [address] [address] [address] Hemanth Kerr Basophils/100 WBC (Bld) 0.6 % Normal 0.2-2.0 [facility] Comment on above: Performed By: #### L ACT #### [facility] [address] [address] [address] Hemanth Kerr EO # 0.1 103/ul Normal 0.0-0.7 [facility] Comment on above: Performed By: #### L ACT #### [facility] [address] [place] [address] Dr. Hemanth Kerr Eosinophils/100 WBC (Bld) 1.3 % Normal 0.9-7.0 [facility] Comment on above: Performed By: #### L ACT #### [facility] [address] [place] [address] Dr. Hemanth Kerr Erythrocyte distribution width (RBC) [Ratio] 12.0 % Normal 11.0-15.0 [facility] Comment on above: Performed By: #### L ACT #### [facility] [address] [place] [address] Dr. Hemanth Kerr Hematocrit (Bld) [Volume fraction] 35.6 % Critically low 36.0-48.0 [facility] Comment on above: Performed By: #### L ACT #### [facility] [address] [place] [address] Dr. Hemanth Kerr Hemoglobin (Bld) [Mass/Vol] 12.4 g/dL Normal 12.0-16.0 [facility] Comment on above: Performed By: #### L ACT #### [facility] [address] [place] [address] Dr. Hemanth Kerr IG # 0.02 10e3/ul Normal 0.00-0.03 [facility] Comment on above: Performed By: #### L ACT #### [facility] [address] [place] [address] Dr. Hemanth Kerr IG % 0.3 % Normal 0.0-0.5 [facility] Comment on above: Performed By: #### L ACT #### [facility] [address] [place] [address] Dr. Hemanth Kerr LYMPH # 1.9 103/ul Normal 1.2-3.8 [facility] Comment on above: Performed By: #### L ACT #### [facility] [address] [place] [address] Dr. Hemanth Kerr Lymphocytes/100 WBC (Bld) 27.5 % Normal 20.5-60.0 [facility] Comment on above: Performed By: #### L ACT #### [facility] [address] [place] [address] Dr. Hemanth Kerr MANUAL DIFF REQ NO Normal [facility] Comment on above: Performed By: #### L ACT #### [facility] [address] [place] [address] Dr. Hemanth Kerr MCH (RBC) [Entitic mass] 29.6 pg Normal 26.7-34.0 [facility] Comment on above: Performed By: #### L ACT #### [facility] [address] [place] [address] Dr. Hemanth Kerr MCHC (RBC) [Mass/Vol] 34.8 g/dL Normal 29.9-35.2 [facility] Comment on above: Performed By: #### L ACT #### [facility] [address] [place] [address] Dr. Hemanth Kerr MCV (RBC) [Entitic vol] 85.0 fL Normal 81.0-99.0 [facility] Comment on above: Performed By: #### L ACT #### [facility] [address] [place] [address] Dr. Hemanth Kerr MONO # 0.4 103/ul Normal 0.3-0.8 [facility] [facility] Comment on above: Performed By: #### L ACT #### [facility] [address] [place] [address] Dr. Hemanth Kerr Monocytes/100 WBC (Bld) 6.3 % Normal 1.7-12.0 [facility] Comment on above: Performed By: #### L ACT #### [facility] [address] [place] [address] Dr. Hemanth Kerr NEUT # 4.5 103/ul Normal 1.4-6.5 [facility] Comment on above: Performed By: #### L ACT #### [facility] [address] [place] [address] Dr. Hemanth Kerr Neutrophils/100 WBC (Bld) 64.0 % Normal 43.0-75.0 [facility] Comment on above: Performed By: #### L ACT #### [facility] [address] [place] [address] Dr. Hemanth Kerr Platelet mean volume (Bld) [Entitic vol] 10.6 fL Normal 9.5-13.5 [facility] Comment on above: Performed By: #### L ACT #### [facility] [address] [place] [address] Dr. Hemanth Kerr PLT 247 103/ul Normal 150-450 [facility] Comment on above: Performed By: #### L ACT #### [facility] [address] [place] [address] Dr. Hemanth Kerr RBC 4.19 106/ul Critically low 4.20-5.40 [facility] Comment on above: Performed By: #### L ACT #### [facility] [address] [place] [address] Dr. Hemanth Kerr WBC 7.0 103/ul Normal 4.0-11.0 [facility] Comment on above: Performed By: #### L ACT #### [facility] [address] [place] [address] Dr. Hemanth Kerr Covid-19 PCR ([facility])on 07-20 SARS-CoV-2 (COVID-19) RNA ELMO+probe Ql (Unsp spec) Not detected Normal NOT DETECTED [facility] Comment on above: Result Comment: This test is not yet approved or cleared by the [place] FDA. When there are no FDA-approved or cleared tests available, and other criteria are met, FDA can make tests available under an emergency access mechanism called an Emergency Use Authorization (EUA). The EUA for this test is supported by the [place] of Health and Human Service's (HHS's) declaration [...] SARS-CoV-2. Performed By: #### C MP #### [facility] [address] [place] [address] Dr. Hemanth Kerr PREG QUANT HCGon 08-16-2022 HCG QUANT 82047 mIU/mL Normal [facility] Comment on above: Performed By: #### P REG #### [facility] [address] [place] [address] Dr. Hemanth Kerr HCG RANGE SEE BELOW Normal [facility] Comment on above: Result Comment: 5-50 0.2-1 WEEK 50-500 1-2 WEEKS 100-5,000 2-3 WEEKS 500-10,000 3-4 WEEKS 1,000-50,000 4-5 WEEKS 10,000-100,000 5-6 WEEKS 15,000-200,000 6-8 WEEKS 10,000-100,000 2-3 MONTHS Performed By: #### P REG #### [facility] [address] [place] [address] Dr. Hemanth Kerr PREG QUANT HCGon 08-14-2022 HCG QUANT 21177 mIU/mL Normal [facility] Comment on above: Performed By: #### P REG #### [facility] [address] [place] [address] Dr. Hemanth Kerr HCG RANGE SEE BELOW Normal [facility] Comment on above: Result Comment: 5-50 0.2-1 WEEK 50-500 1-2 WEEKS 100-5,000 2-3 WEEKS 500-10,000 3-4 WEEKS 1,000-50,000 4-5 WEEKS 10,000-100,000 5-6 WEEKS 15,000-200,000 6-8 WEEKS 10,000-100,000 2-3 MONTHS Performed By: #### P REG #### [facility] [address] [address] [address] Hemanth Kerr US PREG TVon 08-14-2022 [...] by: CHRISTINE SÁNCHEZ Date: 2022-08-14 16:[address] [facility] US PREG TVon 07-27-2022 US PREG [...] by: CHRISTINE SÁNCHEZ Date: 2022-07-27 17:[address] [facility] XR CHEST 1 Von 07-09-2022 XR [...] by: FELIX WEBB Date: 2022-07-09 12:06 Normal [facility] 12-12-2021 [facility] Telephone (BiolineRxASA) NOE ERVIN ([id number]) 1995 F Date Time Provider Department 12/12/21 KING SUAZO During your visit today, we recorded the following information about you: Angelia Almazan 12/12/2021 11:16 AM Signed Pleases sign pending new cbc order. Thanks, Angelia Almazan MA Allergies As of Date: 12/12/2021 (No Known Allergies) Date Reviewed: 12/12/2021 Reviewed by: Jasmin Silverio APRN.[facility] - Fully Assessed Reason for Visit: Lab Orders [168] Primary Visit Diagnosis:Iron deficiency anemia, unspecified iron deficiency anemia type [D50.9] Order(s):CBC + DIFF [SQCBCDIF] Order #: [id number] FUTURE Prescriptions as of 12/12/2021 - gabapentin (NEURONTIN) 400 mg capsule Take by mouth. - Polysaccharide Iron Complex 180 mg iron cap Take by mouth. - aspirin 81 mg cap Take 81 mg by mouth once daily. - ONDANSETRON HCL ORAL Take 4 mg by mouth as needed. Problem List As Of Date: 12/12/2021 (None) Encounter Status:Closed by JASMIN SILVERIO on 12/12/21 Normal [facility] 11-10-2021 [facility] Telephone (BiolineRxASA) NOE ERVIN ([id number]) 1995 F Date Time Provider Department 11/10/21 [...] B12 is slightly low. Options would be spli-bbr-ekbaeny B12 tablets 2 mg daily or start a monthly injection. Thanks, MELANY De La O RN 11/10/2021 3:40 PM Signed Informed pt of Dr Suazo's message. Pt verbalized understanding and states [facility] told her only 2 doses of the [...] by JENNYFER DE LA O on 11/10/21 [facility] [place] CNOVSPon 11-08-2021 CNOVSP Visit (SP) Office (HEMASA) NOE ERVIN ([id number]) 1995 F Date Time Provider Department 11/08/21 [...] shortness of breath, and is seen at [facility] emergency room. Labs revealed a hemoglobin of [...] changes, r (more content not included)... Normal [facility] Comp Metabolic Panelon 11-08 Albumin [Mass/Vol] 3.6 g/dL Low 3.9-4.9 [facility] Comment on above: Performed By: #### S ERFOL, IRON, B12, FERR #### [facility] [address] [place], [place] [address] ALP [Catalytic activity/Vol] 79 U/L Normal 34-123 [facility] Comment on above: Performed By: #### S ERFOL, IRON, B12, FERR #### [facility] [address] [place], [place] [address] ALT [Catalytic activity/Vol] 8 U/L Normal 7-38 [facility] Comment on above: Performed By: #### S ERFOL, IRON, B12, FERR #### [facility] [address] [place], [place] [address] Anion gap [Moles/Vol] 9 mmol/L Normal 9-18 [facility] Comment on above: Performed By: #### S ERFOL, IRON, B12, FERR #### [facility] [address] [place], [place] [address] AST [Catalytic activity/Vol] 13 U/L Normal 13-35 [facility] Comment on above: Performed By: #### S ERFOL, IRON, B12, FERR #### [address] [place] [address] Bilirubin [Mass/Vol] 0.2 mg/dL Normal 0.2-1.3 [facility] Comment on above: Performed By: #### S ERFOL, IRON, B12, FERR #### [place] [address] Calcium [Mass/Vol] 9.3 mg/dL Normal 8.5-10.2 [facility] Comment on above: Performed By: #### S ERFOL, IRON, B12, FERR #### [place] [address] Chloride [Moles/Vol] 102 mmol/L Normal 97-105 [facility] Comment on above: Performed By: #### S ERFOL, IRON, B12, FERR #### [place] [address] CO2 [Moles/Vol] 23 mmol/L Normal 22-30 [facility] Comment on above: Performed By: #### S ERFOL, IRON, B12, FERR #### [place] [address] Creatinine [Mass/Vol] 0.55 mg/dL Low 0.58-0.96 [facility] Comment on above: Performed By: #### S ERFOL, IRON, B12, FERR #### [place] [address] eGFR- Amer. >60 Normal [facility] Comment on above: Performed By: #### S ERFOL, IRON, B12, FERR #### [place] [address] eGFR-All Other Races >60 Normal [facility] [...] #### S ERFOL, IRON, B12, FERR #### [facility] [address] [id number] Glucose [Mass/Vol] 96 mg/dL Normal 74-99 [facility] Comment on above: Result Comment: The [place] Diabetes Association (ADA) provides guidance for cutoff [...] Standards of Medical Care in Diabetes 2016, [place] [employer]. Diabetes Care. 2016.39(Suppl 1). Performed By: #### S ERFOL, IRON, B12, FERR #### [facility] [address] [place], [place] [address] Potassium [Moles/Vol] 3.3 mmol/L Low 3.7-5.1 [facility] Comment on above: Performed By: #### S ERFOL, IRON, B12, FERR #### [facility] [address] [place], [place] [address] Protein [Mass/Vol] 6.3 g/dL Normal 6.3-8.0 [facility] Comment on above: Performed By: #### S ERFOL, IRON, B12, FERR #### [address] [address] Sodium [Moles/Vol] 134 mmol/L Low 136-144 [facility] Comment on above: Performed By: #### S ERFOL, IRON, B12, FERR #### [place] [address] Urea nitrogen [Mass/Vol] 4 mg/dL Low 7-21 [facility] Comment on above: Performed By: #### S ERFOL, IRON, B12, FERR #### [place] [address] Ferritinon 11-08-2021 Ferritin [Mass/Vol] 203.0 ng/mL Normal 14.7-205.1 [facility] Comment on above: Performed By: #### S ERFOL, IRON, B12, FERR #### [address] [address] Folate, Serumon 11-08-2021 Folate [Mass/Vol] 8.5 ng/mL Normal >4.7 [facility] Comment on above: Performed By: #### S ERFOL, IRON, B12, FERR #### [address] [place], [place] [address] Iron and TIBCon 11-08-2021 Iron [Mass/Vol] 93 ug/dL Normal 41-186 [facility] Comment on above: Performed By: #### S ERFOL, IRON, B12, FERR #### [address] [address] TIBC 407 ug/dL High 232-386 [facility] Comment on above: Performed By: #### S ERFOL, IRON, B12, FERR #### [facility] [address] [place], [place] [address] Transferrin Saturatn 23 % Normal 15-57 [facility] Comment on above: Performed By: #### S ERFOL, IRON, B12, FERR #### [facility] [address] [place], [place] [address] Remote CBCDIF (for [facility] use o nly)on 11-08-2021 Abs Baso <0.03 Normal <0.11 [facility] Abs Hubbard 0.57 k/uL Normal <0.87 [facility] Abs Neut 4.67 k/uL Normal 1.45-7.50 [facility] Absolute nRBC <0.01 Normal <0.01 [facility] Basophils/100 WBC (Bld) 0.3 % Normal [facility] DTYPE Auto Diff Normal [facility] Eosinophils (Bld) [#/Vol] 0.05 10*3/uL Normal <0.46 [facility] Eosinophils/100 WBC (Bld) 0.8 % Normal [facility] Erythrocyte distribution width (RBC) [Ratio] 29.9 % High 11.5-15.0 [facility] Hematocrit (Bld) [Volume fraction] 32.6 % Low 36.0-46.0 [facility] Hemoglobin (Bld) [Mass/Vol] 10.1 g/dL Low 11.5-15.5 [facility] Lymphocytes (Bld) [#/Vol] 1.25 10*3/uL Normal 1.00-4.00 [facility] Lymphocytes/100 WBC (Bld) 19.1 % Normal [facility] MCH 25.1 pG Low 26.0-34.0 [facility] MCHC (RBC) [Mass/Vol] 31.0 g/dL Normal 30.5-36.0 [facility] MCV (RBC) [Entitic vol] 81.1 fL Normal 80.0-100.0 [facility] Monocytes/100 WBC (Bld) 8.7 % Normal [facility] Neutrophils/100 WBC (Bld) 71.1 % Normal [facility] NRBCs 0.0 /100 WBC Normal 0 [facility] Platelet mean volume (Bld) [Entitic vol] 10.3 fL Normal 9.0-12.7 [facility] Platelets (Bld) [#/Vol] 223 10*3/uL Normal 150-400 [facility] Comment on above: Result Comment: Resu lt checked and verified Sample checked for a clot. RBC (Bld) [#/Vol] 4.02 10*6/uL Normal 3.90-5.20 [facility] WBC (Bld) [#/Vol] 6.56 10*3/uL Normal 3.70-11.00 [facility] Reticulocyteon 11-08-2021 Abs Retic 0.140 M/uL High 0.0180-0.1000 [facility] Comment on above: Performed By: #### S ERFOL, IRON, B12, FERR #### [facility] [address] [address] Retic% 3.5 % High 0.4-2.0 [facility] Comment on above: Performed By: #### S ERFOL, IRON, B12, FERR #### [facility] [address], [place] [id number] Vitamin B12on 11-08-2021 Cobalamin (Vitamin B12) [Mass/Vol] 218 pg/mL Low 232-1245 [facility] Comment on above: Performed By: #### S ERFOL, IRON, B12, FERR #### [facility] [address] [address] HCV RNA,Quant,PCRon 04-27-20 HCV RNA,Quant,PCR Specimen Description [...] genotypes 1-6. Report Status FINAL 04/27/2020 Normal [facility] Comment on above: Performed By: #### H IVCMB, PHEP #### [address] [address] [employer]: Dom Fowler MD #### CP #### [facility] [address] [place] [address] [employer]: Shakeel Graham MD [facility] 04-26-2020 Erythrocyte distribution width (RBC) [Ratio] 14.7 % High 11.8-14.4 [facility] Comment on above: Performed By: #### H IVCMB, PHEP #### [address] [address] [employer]: Dom Fowler MD #### CP #### [facility] [address] [place] [address] [employer]: Shakeel Graham MD Hematocrit (Bld) [Volume fraction] 36.0 % Low 36.3-47.1 [facility] Comment on above: Performed By: #### H IVCMB, PHEP #### [address] [address] [employer]: Dom Fowler MD #### CP #### [facility] [address] [place] [address] [employer]: Shakeel Graham MD Hemoglobin (Bld) [Mass/Vol] 10.9 g/dL Low 11.9-15.1 [facility] Comment on above: Performed By: #### H IVCMB, PHEP #### [address] [id number] [employer]: Dom Fowler MD #### CP #### [facility] [address] [place] [address] [employer]: Shakeel Graham MD MCH (RBC) [Entitic mass] 26.2 pg Normal 25.2-33.5 [facility] Comment on above: Performed By: #### H IVCMB, PHEP #### [address] [id number] [employer]: Dom Fowler MD #### CP #### [facility] [address] [place] [address] [employer]: Shakeel Graham MD MCHC (RBC) [Mass/Vol] 30.3 g/dL Normal 28.4-34.8 [facility] Comment on above: Performed By: #### H IVCMB, PHEP #### [address] [id number] [employer]: Dom Fowler MD #### CP #### [facility] [address] [place] [place] [id number] [employer]: Shakeel Graham MD MCV (RBC) [Entitic vol] 86.5 fL Normal 82.6-102.9 [facility] Comment on above: Performed By: #### H IVCMB, PHEP #### [address] [address] [employer]: Dom Fowler MD #### CP #### [facility] [address] [place] [place] [id number] [employer]: Shakeel Graham MD NRBC Automated 0.0 per 100 WBC Normal 0.0 [facility] Comment on above: Performed By: #### H IVCMB, PHEP #### [address] [id number] [employer]: Dom Fowler MD #### CP #### [facility] [address] [place] [address] [employer]: Shakeel Graham MD Platelet mean volume (Bld) [Entitic vol] 10.8 fL Normal 8.1-13.5 [facility] Comment on above: Performed By: #### H IVCMB, PHEP #### [address] [place], [place] [phone] [employer]: Dom Fowler MD #### CP #### [facility] [address] [place], [place] [id number] [employer]: Shakeel Graham MD Platelets (Bld) [#/Vol] 328 10*3/uL Normal 138-453 [facility] Comment on above: Performed By: #### H IVCMB, PHEP #### [address] [id number] [employer]: Dom Fowler MD #### CP #### [facility] [address] [place] [address] [employer]: Shakeel Graham MD RBC (Bld) [#/Vol] 4.16 10*6/uL Normal 3.95-5.11 [facility] Comment on above: Performed By: #### H IVCMB, PHEP #### [address] [id number] [employer]: Dom Fowler MD #### CP #### [facility] [address] [place] [address] [employer]: Shakeel Graham MD WBC (Bld) [#/Vol] 5.7 10*3/uL Normal 3.5-11.3 [facility] Comment on above: Performed By: #### H IVCMB, PHEP #### [address] [id number] [employer]: Dom Fowler MD #### CP #### [facility] [address] [place] [address] [employer]: Shakeel Graham MD Erythrocyte distribution width (RBC) [Ratio] 14.7 % High 11.8 - 14.4 % [place], [place] Hematocrit (Bld) [Volume fraction] 36.0 % Low 36.3 - 47.1 % [place] Hemoglobin (Bld) [Mass/Vol] 10.9 g/dL Low 11.9 - 15.1 g/dL [place] Interpretation and review of laboratory results Abnormal [place] MCH (RBC) [Entitic mass] 26.2 pg 25.2 - 33.5 pg [place] MCHC (RBC) [Mass/Vol] 30.3 g/dL 28.4 - 34.8 g/dL [place] MCV (RBC) [Entitic vol] 86.5 fL 82.6 - 102.9 fL [place] Platelet mean volume (Bld) [Entitic vol] 10.8 fL 8.1 - 13.5 fL [place], [place] Platelets (Bld) [#/Vol] 328 10*3/uL [place] RBC (Bld) [#/Vol] 4.16 10*6/uL 3.95 - 5.1 1 m/uL [place] WBC (Bld) [#/Vol] 0.0 10*3/uL 0.0 per 100 WBC [place] WBC (Bld) [#/Vol] 5.7 10*3/uL [place] Comp Metabolic Profon 2019 Bilirubin Ql (U) <0.10 Low 0.3-1.2 [facility] Comment on above: Performed By: #### H IVCMB, PHEP #### [facility] [address] [place] [address] [employer]: Dom Fowler MD #### CP #### [facility] [address] [place] [address] [employer]: Shakeel Graham MD (cont.) Normal [facility] Comment on above: Result Comment: Aver age GFR for 20-29 years old: 116 mL/min/1.73sq m Chronic Kidney Disease: <60 mL/min/1.73sq m Kidney failure: <15 mL/min/1.73sq m eGFR calculated using average adult body mass. Additional eGFR calculator available at: http://www.FetchDog/multiple_crcl_2011.htm Performed By: #### H IVCMB, PHEP #### [facility] [address] [place] [address] [employer]: Dom Fowler MD #### CP #### [facility] [address] [place] [address] [employer]: Shakeel Graham MD Albumin [Mass/Vol] 3.4 g/dL Low 3.5-5.2 [facility] Comment on above: Performed By: #### H IVCMB, PHEP #### [address] [address] [employer]: Dom Fowler MD #### CP #### [facility] [address] [place] [address] [place] [address] [employer]: Shakeel Graham MD Albumin/Globulin [Mass ratio] 1.5 {ratio} Normal 1.0-2.5 [facility] Comment on above: Performed By: #### H IVCMB, PHEP #### [address] [address] [employer]: Dom Fowler MD #### CP #### [facility] [address] [place] [address] [employer]: Shakeel Graham MD Alkaline Phos 40 U/L Normal 35-104 [facility] Comment on above: Performed By: #### H IVCMB, PHEP #### [address] [address] [employer]: Dom Fowler MD #### CP #### [facility] [address] [place] [phone] [employer]: Shakeel Graham MD ALT [Catalytic activity/Vol] 12 U/L Normal 5-33 [facility] Comment on above: Performed By: #### H IVCMB, PHEP #### [facility] [address] [place] [address] [employer]: Dom Fowler MD #### CP #### [facility] [address] [place] 1200483 [employer]: Shakeel Graham MD Anion gap [Moles/Vol] 9 mmol/L Normal 9-17 [facility] Comment on above: Performed By: #### H IVCMB, PHEP #### [address] [address] [employer]: oDm Fowler MD #### CP #### [facility] [address] [place] [id number] [employer]: Shakeel Graham MD AST [Catalytic activity/Vol] 12 U/L Normal <32 [facility] Comment on above: Performed By: #### H IVCMB, PHEP #### [address] [address] [employer]: Dom Fowler MD #### CP #### [facility] [address] [place] [phone] [employer]: Shakeel Graham MD BUN/CRE Ratio 26 High 9-20 [facility] Comment on above: Performed By: #### H IVCMB, PHEP #### [address] [address] [employer]: Dom Fowler MD #### CP #### [facility] [address] [place] [phone] [employer]: Shakeel Graham MD Calcium [Mass/Vol] 9.3 mg/dL Normal 8.6-10.4 [facility] Comment on above: Performed By: #### H IVCMB, PHEP #### [address] [address] [employer]: Dom Fowler MD #### CP #### [facility] [address] [place] [address] [address]. [place], [place] [phone] [employer]: Shakeel Graham MD Chloride [Moles/Vol] 109 mmol/L High 98-[address] [facility] Comment on above: Performed By: #### H IVCMB, PHEP #### [address] [address] [employer]: Dom Fowler MD #### CP #### [address] [place] [id number] [employer]: Shakeel Graham MD CO2 [Moles/Vol] 26 mmol/L Normal 20-31 [facility] Comment on above: Performed By: #### H IVCMB, PHEP #### [address] [address] [employer]: Dom Fowler MD #### CP #### [address] [place] [id number] [employer]: Shakeel Graham MD Creatinine [Mass/Vol] 0.57 mg/dL Normal 0.50-0.90 [facility] Comment on above: Performed By: #### H IVCMB, PHEP #### [address] [address] [employer]: Dom Fowler MD #### CP #### [facility] [address] [place] [address] [address]. [place], [place] [id number] [employer]: Shakeel Graham MD GFR, Amer >60 Normal >60 [facility] Comment on above: Performed By: #### H IVCMB, PHEP #### [address] [address] [employer]: Dom Fowler MD #### CP #### [facility] [address] [place], [place] [id number] [employer]: Shakeel Graham MD GFR,non Amer >60 Normal >[address] [facility] Comment on above: Performed By: #### H IVCMB, PHEP #### [address] [address] [employer]: Dom Fowler MD #### CP #### [address] [place], [place] [address] [employer]: Shakeel Graham MD Glucose [Mass/Vol] 92 mg/dL Normal 70-99 [facility] Comment on above: Performed By: #### H IVCMB, PHEP #### [address] [address] [employer]: Dom Fowler MD #### CP #### [address] [place], [place] [address] [employer]: Shakeel Graham MD Potassium [Moles/Vol] 3.8 mmol/L Normal 3.7-5.3 [facility] Comment on above: Performed By: #### H IVCMB, PHEP #### [address] [address] [employer]: Dom Fowler MD #### CP #### [facility] [address] [place] [address] [address]. [place], [place] [id number] [employer]: Shakeel Graham MD Protein [Mass/Vol] 5.7 g/dL Low 6.4-8.3 [facility] Comment on above: Performed By: #### H IVCMB, PHEP #### [address] [address] [employer]: Dom Fowler MD #### CP #### [address] [place] [address] [employer]: Shakeel Graham MD Sodium [Moles/Vol] 144 mmol/L Normal 135-144 [facility] Comment on above: Performed By: #### H IVCMB, PHEP #### [address] [address] [employer]: Dom Fowler MD #### CP #### [address] [place] [address] [employer]: Shakeel Graham MD Staging: Normal [facility] Comment on above: Result Comment: Stag e 1: Some kidney damage normal GFR Stage 2: Mild kidney damage GFR 60-89 Stage 3: Moderate kidney damage GFR 30-59 Stage 4: Severe kidney damage GFR 15-29 Stage 5: Severe kidney damage GFR <15 ESRD - chronic treatment by dialysis or transplant Performed By: #### H IVCMB, PHEP #### [address] [address] [employer]: Dom Fowler MD #### CP #### [address] [place] [address] [employer]: Shakeel Graham MD Urea nitrogen [Mass/Vol] 15 mg/dL Normal 6-20 [facility] Comment on above: Performed By: #### H IVCMB, PHEP #### [address] [address] [employer]: Dom Fowler MD #### CP #### [address] [place] [address] [employer]: Shakeel Graham MD [facility] 04-26-2020 Albumin [Mass/Vol] 3.4 g/dL Low 3.5 - 5.2 g/dL [place], [place] Albumin/Globulin [Mass ratio] 1.5 {ratio} [place] ALP [Catalytic activity/Vol] 40 U/L 35 - 104 U/L [place] ALT [Catalytic activity/Vol] 12 U/L 5 - 33 U/L [place] Anion gap [Moles/Vol] 9 mmol/L 9 - 17 mmol/L [place] AST [Catalytic activity/Vol] 12 U/L <32 [place] Bilirubin Ql (U) <0.10 Low 0.3 - 1.2 mg/dL [place], [place] Bun/Cre Ratio 26 [place], [place] Calcium [Mass/Vol] 9.3 mg/dL 8.6 - 10. 4 mg/dL [place] Chloride [Moles/Vol] 109 mmol/L High 98 - 107 mmol/L [place] CO2 [Moles/Vol] 26 mmol/L 20 - 31 mmol/L [place] Creatinine [Mass/Vol] 0.57 mg/dL 0.5 - 0.9 mg/dL [place] GFR >60 >60 mL/min [place] GFR Non- >60 >60 mL/min [place] Glucose [Mass/Vol] 92 mg/dL 70 - 99 mg/dL [place], [place] Interpretation and review of laboratory results Abnormal [place], [place] Potassium [Moles/Vol] 3.8 mmol/L 3.7 - 5.3 mmol/L [place] Protein [Mass/Vol] 5.7 g/dL Low 6.4 - 8.3 g/dL [place] Sodium [Moles/Vol] 144 mmol/L 135 - 144 mmol/L [place] Urea nitrogen [Mass/Vol] 15 mg/dL 6 - 20 mg/dL [place] HCG Qualitative, Serumon hCG Qual Negative NEGATIVE [place] Comment on above: Specimens with hCG l evels near the threshold of the test (25 mIU/mL) may give a negative or indeterminate result. In such cases, another test should be performed with a new specimen in 48-72 hours. If early is suspected clinically in this setting, correlation with quantitative serum b-hCG level is suggested. [facility] has [facility] the use of plasma for this test. This has not been cleared or approved by the U.S. Food and Drug Administration. The FDA has determined that such clearance is not necessary. HCG Screen, Bloodon 04-26-20 20 HCG Qn Negative Normal NEG [facility] Comment on above: Result Comment: Spec imens with hCG levels near the threshold of the test (25 mIU/mL) may give a negative or indeterminate result. In such cases, another test should be performed with a new specimen in 48-72 hours. If early is suspected clinically in this setting, correlation with quantitative serum b-hCG level is suggested. [facility] has confirmed the use of plasma for this test. This has not been cleared or approved by the U.S. Food and Drug Administration. The FDA has determined that such clearance is not necessary. Performed By: #### H IVCMB, PHEP #### [facility] [address] [place], [place] [id number] [employer]: Dom Fowler MD #### CP #### [address] [place] [address] [employer]: Shakeel Graham MD HIV Ag/Abon 04-26-2020 HIV Ag/Ab NONREACTIVE Normal NR [facility] Comment on above: Result Comment: No l aboratory evidence of HIV infection. If acute HIV infection is suspected, consider testing for HIV-1 RNA. Performed By: #### H IVCMB, PHEP #### [facility] [address] [place] [address] [employer]: Dom Fowler MD #### CP #### [facility] [address] [place] [address] [employer]: Shakeel Graham MD HIV Screenon 04-26-2020 HIV Ag/Ab NONREACTIVE NONREACTIVE [place] Comment on above: No laboratory eviden ce of HIV infection. If acute HIV infection is suspected, consider testing for HIV-1 RNA. Hepatitis Acute [facility] 04-26 Hep A Ab,IgM NONREACTIVE Normal NR [facility] Comment on above: Performed By: #### H IVCMB, PHEP #### [facility] [address] [place] [address] [employer]: Dom Fowler MD #### CP #### [facility] [address] [place] [address] [place] [address] [employer]: Shakeel Graham MD Hep B Core Ab,IgM NONREACTIVE Normal [facility] Comment on above: Performed By: #### H IVCMB, PHEP #### [address] [address] [employer]: Dom Fowler MD #### CP #### [address] [place], [place] [id number] [employer]: Shakeel Graham MD Hep B Surf Ag NONREACTIVE Normal [facility] Comment on above: Performed By: #### H IVCMB, PHEP #### [facility] [address] [place] [address] [employer]: Dom Fowler MD #### CP #### [address] [place] [address] [employer]: Shakeel Graham MD Hep C Ab REACTIVE Abnormal NR [facility] Comment on above: Result Comment: [...] Performed By: #### H IVCMB, PHEP #### [facility] [address] [place] [address] [employer]: Dom Fowler MD #### CP #### [facility] [address] [place] [address] [employer]: Shakeel Graham MD Hepatitis Panel, Acuteon HAV IgM IA Qn (S) NONREACTIVE NONREACTIVE [place] Hep B Core Ab, IgM NONREACTIVE NONREACTIVE [place] Hepatitis B Surface Ag NONREACTIVE NONREACTIVE [place] Hepatitis C Ab REACTIVE Abnormal NONREACTIVE [place] Comment on above: The hepatitis C [...] Interpretation and review of laboratory results Abnormal [place] Metabolic Panelon 04-26-2020 GFR/1.73 sq M predicted among non-blacks MDRD (S/P/Bld) [Vol rate/Area] [place] Comment on above: Stage 1: Some [...] body mass. Additional eGFR calculator available at: http://www.Syntaxin.Cytocentrics/multiple_crcl_2012.htm Microscopic Urinalysison Amorphous, UA NOT REPORTED None [place], [place] Bacteria, UA NOT REPORTED None [place], [place] Casts UA NOT REPORTED /LPF [place] Crystals, UA 5 TO 10 Abnormal None /HPF [place] Crystals, UA CALCIUM OXALATE Abnormal None /HPF [place] Epithelial Cells UA 0 TO 2 [place] Interpretation and review of laboratory results Abnormal [facility], [place] Mucus, UA TRACE Abnormal None [place] Other Observations UA NOT REPORTED NOT REQ. [place] RBC (U) [#/Vol] None [facility], [place] Renal Epithelial, UA NOT REPORTED 0 /HPF Me [facility], [place] Trichomonas, UA NOT REPORTED None [facility], [place] WBC, UA 0 TO 2 [facility], [place] Yeast, UA NOT REPORTED None [facility], [place] UA w/Reflex Cultureon 2019 Acetoacetic Acid,Ur Negative Normal NEG [facility] Comment on above: Performed By: #### H IVCMB, PHEP #### [address] [address] [employer]: Dom Fowler MD #### CP #### [address] [place] [address] [employer]: Shakeel Graham MD Bilirubin, SemiQt,Ur Negative Normal NEG [facility] Comment on above: Performed By: #### H IVCMB, PHEP #### [address] [address] [employer]: Dom Fowler MD #### CP #### [address] [place] [address] [employer]: Shakeel Graham MD Color (U) YELLOW Normal [facility] Comment on above: Performed By: #### H IVCMB, PHEP #### [address] [address] [employer]: Dom Fowler MD #### CP #### [address] [place] [address] [employer]: Shakeel Graham MD Glucose Ql (U) Negative Normal NEG [facility] Comment on above: Performed By: #### H IVCMB, PHEP #### [address] [address] [employer]: Dom Fowler MD #### CP #### [facility] [address] [place] [address] Dr[address] [place], [place] [id number] [employer]: Shakeel Graham MD Hemoglobin, Ur Negative Normal NEG [facility] Comment on above: Performed By: #### H IVCMB, PHEP #### [address] [address] [employer]: Dom Fowler MD #### CP #### [address] [place], [place] [id number] [employer]: Shakeel Graham MD Leukocyte esterase Test strip Ql (U) Negative Normal NEG [facility] Comment on above: Performed By: #### H IVCMB, PHEP #### [address] [address] [employer]: Dom Fowler MD #### CP #### [address] [place], [place] [id number] [employer]: Shakeel Graham MD Nitrite,Ur Negative Normal NEG [facility] Comment on above: Performed By: #### H IVCMB, PHEP #### [address] [address] [employer]: Dom Fowler MD #### CP #### [address] [place], [place] [id number] [employer]: Shakeel Graham MD pH (U) 6.5 [pH] Normal 5.0-9.0 [facility] Comment on above: Performed By: #### H IVCMB, PHEP #### [address] [address] [employer]: Dom Fowler MD #### CP #### [facility] [address] [place] [address] [place] [address] [employer]: Shakeel Graham MD Protein Ql (U) Negative Normal NEG [facility] Comment on above: Performed By: #### H IVCMB, PHEP #### [facility] [address] [place] [address] [employer]: Dom Fowler MD #### CP #### [address] [place] [address] [employer]: Shakeel Graham MD Specific gravity (U) [Rel density] 1.025 High 1.010-1.020 [facility] Comment on above: Performed By: #### H IVCMB, PHEP #### [address] [address] [employer]: Dom Fowler MD #### CP #### [address] [place], [place] [id number] [employer]: Shakeel Graham MD Turbidity CLEAR Normal CLEAR [facility] Comment on above: Performed By: #### H IVCMB, PHEP #### [address] [address] [employer]: Dom Fowler MD #### CP #### [address] [place] [address] [employer]: Shakeel Graham MD Urobilinogen,Ur Normal Normal NORM [facility] Comment on above: Performed By: #### H IVCMB, PHEP #### [address] [address] [employer]: Dom Fowler MD #### CP #### [address] [place] [address] [employer]: Shakeel Graham MD Comment NOT REPORTED Normal [facility] Comment on above: Performed By: #### H IVCMB, PHEP #### [place] [address] [place] [address] [employer]: Dom Fowler MD #### CP #### [facility] [address] [place] [address] [place] [address] [employer]: Shakeel Graham MD Urinalysis Reflex to Culture on 04-26-2020 Bilirubin Urine Negative NEGATIVE [facility] [place], [place] Color, UA YELLOW YELLOW [facility], [place] Glucose, Ur Negative NEGATIVE [facility], [place] Interpretation and review of laboratory results Abnormal [place], [place] Ketones Ql (U) Negative NEGATIVE [facility], [place] Leukocyte esterase Test strip Ql (U) Negative NEGATIVE [facility], [place] Nitrite, Urine Negative NEGATIVE [facility], [place] pH, UA 6.5 [place], [place] Protein (U) [Mass/Vol] Negative NEGATIVE [facility], [place] Specific [place], UA 1.025 High [facility], [place] Turbidity UA CLEAR CLEAR [place] Urinalysis Comments NOT REPORTED [facility], [place] Urine Hgb Negative NEGATIVE [facility], [place] Urobilinogen, Urine Normal Normal [place] Urinalysis,Microon 0 ----- Normal [facility] Comment on above: Performed By: #### H IVCMB, PHEP #### [address] [address] [employer]: Dom Fowler MD #### CP #### [facility] [address] [place] [address] [place] [address] [employer]: Shakeel Graham MD Crystals LM Nom (Urine sed) CALCIUM OXALATE Abnormal NONE [facility] Comment on above: Result Comment: 5 TO 10 Performed By: #### H IVCMB, PHEP #### [address] [place] [address] [employer]: Dom Fowler MD #### CP #### [address] [place] [address] [employer]: Shakeel Graham MD Epithelial cells LM.HPF (Urine sed) [#/Area] 0 TO 2 Normal 0-25 [facility] Comment on above: Performed By: #### H IVCMB, PHEP #### [address] [address] [employer]: Dom Fowler MD #### CP #### [address] [place] [id number] [employer]: Shakeel Graham MD Mucus Strands TRACE Abnormal NONE [facility] Comment on above: Performed By: #### H IVCMB, PHEP #### [address] [address] [employer]: Dom Fowler MD #### CP #### [address] [place] [address] [employer]: Shakeel Graham MD RBC (U) [#/Vol] None Normal 0-2 [facility] Comment on above: Performed By: #### H IVCMB, PHEP #### [address] [address] [employer]: Dom Fowler MD #### CP #### [address] [place] [id number] ( [employer]: Shakeel Graham MD WBC (U) [#/Vol] 0 TO 2 Normal 0-5 [facility] Comment on above: Performed By: #### H IVCMB, PHEP #### [address] [address] [employer]: Dom Fowler MD #### CP #### [address] [place], [place] [address] [employer]: Shakeel Graham MD Amorphous sediment LM Ql (Urine sed) NOT REPORTED Normal NONE [facility] Comment on above: Performed By: #### H IVCMB, PHEP #### [facility] [address] [place] [address] [employer]: Dom Fowler MD #### CP #### [facility] [address] [place] [address] [place] [address] [employer]: Shakeel Graham MD Bacteria LM.HPF (Urine sed) [#/Area] NOT REPORTED Normal NONE [facility] Comment on above: Performed By: #### H IVCMB, PHEP #### [address] [address] [employer]: Dom Fowler MD #### CP #### [address] [place] [address] [employer]: Shakeel Graham MD Casts LM.LPF (Urine sed) [#/Area] NOT REPORTED Normal [facility] Comment on above: Performed By: #### H IVCMB, PHEP #### [address] [address] [employer]: Dom Fowler MD #### CP #### [address] [place] [address] [employer]: Shakeel Graham MD Epithelial, Renal NOT REPORTED Normal 0 [facility] Comment on above: Performed By: #### H IVCMB, PHEP #### [address] [address] [employer]: Dom Fowler MD #### CP #### [address] [place] [address] [employer]: Shakeel Graham MD Other Observations NOT REPORTED Normal NREQ [facility] Comment on above: Performed By: #### H IVCMB, PHEP #### [address] [address] [employer]: Dom Fowler MD #### CP #### [facility] [address] [place] [phone] [employer]: Shakeel Graham MD Trichomonas NOT REPORTED Normal NONE [facility] Comment on above: Performed By: #### H IVCMB, PHEP #### [facility] [address] [place] [address] [employer]: Dom Fowler MD #### CP #### [facility] [address] [place] [phone] [employer]: Shakeel Graham MD Yeast LM Ql (Urine sed) NOT REPORTED Normal NONE [facility] Comment on above: Performed By: #### H IVCMB, PHEP #### [address] [place] [address] [employer]: Dom Fowler MD #### CP #### [facility] [address] [place] [address] Dr. Felix [place] [phone] [employer]: Shakeel Graham MD ED Clinical Summaryon 2019 ED Clinical Summary [address] [address] ED Clinical Summary Person Information Name: Kathryn Ervin/[facility] Age: 25 Years : 1995 Sex: Female PCP: Marital Status: Single Phone: Race: White Ethnicity: Not or Language: Gabonese Visit Reason: Drug withdrawal; Drug withdrawal Acuity: 3 Enc Type: Emergency Med Service: Emergency Medicine Arrival: 03/16/2020 20:10:45 Discharge: 03/17/2020 02:12:00 LOS: 000 06:02 Checkin: 03/16/2020 20:10:45 Checkout: 03/17/2020 02:12:00 Dispo Type: Home or Self Care Address: [address] [place] [id number] Provider Notes: Diagnosis: 1:Affective disorder; 2:Drug usage [...] range between ( 27.2 and 40.8 ) [place] Auto: 11.4 % -- Normal range between [...] range between ( 36.0 and 46.0 ) [place] Absolute: 1.5 x10 MCH: 27.4 pg -- [...] [facility] [place], [place] Within 1 to 2 days Discharge Orders: Discharge Patient 03/17/20 1:45:00 EDT, Discharge to Home, Self Patient Education Information: Understanding Methamphetamine Abuse and Addiction; Treating Affective (Mood) Disorders [facility] Poison Help line: . [facility] Mental Health Hotline: [place] Tobacco Quit Line: [place], [place]) [address]: [phone] [place], [place]) [address]: [phone] [facility] [address] [place], [place]: [phone] Normal [facility] hCG Quantitativeon 0 Beta hCG Qnt 1.7 mIU/mL Normal 0.0-4.9 [facility] Comment on above: Result Comment: 0.0 - 4.9 Negative for 5.0 - 25.0 Indeterminant for : Suggest repeat in 72 hours. >25.0 Positive for Performed By: #### H CG ####[place] [address] .UA Microscp Aon 03-16-2020 UA Hyline Cast Qual >20 Abnormal Negative [facility] Comment on above: Performed By: #### C [id number] ####[place] [id number] UA Mucus Present Abnormal Absent [facility] Comment on above: Performed By: #### C [id number] ####[place] [id number] UA RBC Quant 12 /HPF High 0-5 [facility] Comment on above: Performed By: #### C [id number] ####[address] [address] UA Squepi Cells Quant 6 /HPF Normal 0-29 [facility] Comment on above: Performed By: #### C [id number] ####[address] [address] UA WBC Quant 7 /HPF High 0-5 [facility] Comment on above: Performed By: #### C [id number] ####[address] [address] .eGFRon 03-16-2020 eGFR AA 52 mL/min/1.73m? Low >=60 [facility] Comment on above: Result Comment: Resu lt = 0-14.9 mL/min/1.73 m2 Kidney failure or Dialysis Result = 15-29 mL/min/1.73 m2 Severe decrease in GFR Result = 30-59 mL/min/1.73 m2 Moderate decrease in GFR Result >= 60 mL/min/1.73 m2 Normal or increased GFR Performed By: #### E GFR #### [address] [address] eGFR Non-AA 43 mL/min/1.73m? Low >=60 [facility] Comment on above: Result [...] dosing. Performed By: #### E GFR #### [address] [address] CBC w/ Diffon 03-16-2020 Erythrocyte distribution width (RBC) [Ratio] 15.9 % High 11.6-14.8 [facility] Comment on above: Performed By: #### C BC #### [address] [address] Hematocrit (Bld) [Volume fraction] 37.5 % Normal 36.0-46.0 [facility] Comment on above: Performed By: #### C BC #### [address] [address] Hemoglobin (Bld) [Mass/Vol] 12.5 g/dL Normal 12.0-16.0 [facility] Comment on above: Performed By: #### C BC #### [address] [address] MCH (RBC) [Entitic mass] 27.4 pg Normal 27.0-35.0 [facility] Comment on above: Performed By: #### C BC #### [address] [address] MCHC (RBC) [Mass/Vol] 33.2 % Normal 31.0-37.0 [facility] Comment on above: Performed By: #### C BC #### [address] [address] MCV (RBC) [Entitic vol] 82.4 fL Normal 80.0-100.0 [facility] Comment on above: Performed By: #### C BC #### [address] [address] Platelet mean volume (Bld) [Entitic vol] 9.4 fL Normal 6.7-10.6 [facility] Comment on above: Performed By: #### C BC #### [address] [address] Platelets (Bld) [#/Vol] 307 x10*3/mcL Normal 150-350 [facility] Comment on above: Performed By: #### C BC #### [address] [address] RBC (Bld) [#/Vol] 4.55 x10*6/mcL Normal 3.80-5.20 [facility] Comment on above: Performed By: #### C BC #### [address] [address] WBC (Bld) [#/Vol] 12.9 x10*3/mcL High 4.5-11.0 [facility] Comment on above: Performed By: #### C BC #### [address] [address] CMPon 03-16-2020 Albumin [Mass/Vol] 5.2 g/dL High 3.2-4.9 [facility] Comment on above: Result Comment: [facility] Laboratory updated the methodology used for albumin testing on 04/24/18. Albumin measurement was performed using a bromcresol purple dye-binding assay. Performed By: #### C OMP #### [address] [address] Albumin/Globulin [Mass ratio] 1.5 {ratio} Normal 1.1-2.2 [facility] Comment on above: Performed By: #### C OMP #### [address] [address] Alk Phos 47 IU/L Normal 32-91 [facility] Comment on above: Performed By: #### C OMP #### [address] [address] ALT [Catalytic activity/Vol] 19 U/L Normal 14-54 [facility] Comment on above: Performed By: #### C OMP #### [address] [place] [address] Anion gap [Moles/Vol] 22 mmol/L High 7-17 [facility] Comment on above: Performed By: #### C OMP #### [address] [address] AST [Catalytic activity/Vol] 31 U/L Normal 15-41 [facility] Comment on above: Performed By: #### C OMP #### [address] [address] Bili Total 1.4 mg/dL High 0.3-1.2 [facility] Comment on above: Performed By: #### C OMP #### [address] [address] Calcium [Mass/Vol] 10.2 mg/dL Normal 8.5-10.3 [facility] Comment on above: Performed By: #### C OMP #### [address] [address] Chloride [Moles/Vol] 100 mmol/L Normal 98-110 [facility] Comment on above: Performed By: #### C OMP #### [address] [address] CO2 [Moles/Vol] 19 mmol/L Low 22-32 [facility] Comment on above: Performed By: #### C OMP #### [address] [address] Creatinine [Mass/Vol] 1.47 mg/dL High 0.44-1.03 [facility] Comment on above: Performed By: #### C OMP #### [address] [address] Glucose [Mass/Vol] 85 mg/dL Normal 70-99 [facility] Comment on above: Performed By: #### C OMP #### [address] [address] Potassium [Moles/Vol] 3.7 mmol/L Normal 3.4-4.8 [facility] Comment on above: Performed By: #### C OMP #### [address] [address] Protein [Mass/Vol] 8.7 g/dL High 6.5-8.1 [facility] Comment on above: Performed By: #### C OMP #### [address] [address] Sodium [Moles/Vol] 137 mmol/L Normal 133-142 [facility] Comment on above: Performed By: #### C OMP #### [address] [address] Urea nitrogen [Mass/Vol] 25 mg/dL Normal 8-26 [facility] Comment on above: Performed By: #### C OMP #### [address] [address] Urea nitrogen/Creatinine [Mass ratio] 17.0 mg/mg Normal 10.0-20.0 [facility] Comment on above: Performed By: #### C OMP #### [address] [address] CPKon 03-16-2020 Creatine Phosphokinase 439 IU/L High 38-234 [facility] Comment on above: Performed By: #### C P #### [address] [address] Diff Autoon 03-16-2020 Baso Absolute 0.0 x10*3/mcL Normal 0.0-0.2 [facility] Comment on above: Performed By: #### . Automated Diff #### [address] [address] Basophils/100 WBC (Bld) 0.4 % Normal 0.0-1.5 [facility] Comment on above: Performed By: #### . Automated Diff #### [address] [address] Eos Absolute 0.0 x10*3/mcL Normal 0.0-0.4 [facility] Comment on above: Performed By: #### . Automated Diff #### [address] [address] Eosinophils/100 WBC (Bld) 0.1 % Normal 0.0-5.4 [facility] Comment on above: Performed By: #### . Automated Diff #### [address] [address] Lymphocytes (Bld) [#/Vol] 1.4 x10*3/mcL Normal 1.0-4.8 [facility] Comment on above: Performed By: #### . Automated Diff #### [address] [address] Lymphocytes/100 WBC (Bld) 10.8 % Low 27.2-40.8 [facility] Comment on above: Performed By: #### . Automated Diff #### [address] [address] [place] Absolute 1.5 x10*3/mcL High 0.1-1.1 [facility] [facility] Comment on above: Performed By: #### . Automated Diff #### [facility] [address] [place] [address] Monocytes/100 WBC (Bld) 11.4 % Normal 3.7-11.9 [facility] Comment on above: Performed By: #### . Automated Diff #### [facility] [address] [place] [address] Neutro Absolute 10.0 x10*3/mcL High 1.8-7.7 [facility] Comment on above: Performed By: #### . Automated Diff #### [facility] [address] [place] [address] Neutro Auto 77.3 % High 47.2-70.8 [facility] Comment on above: Performed By: #### . Automated Diff #### [address] [address] ED Note-Nursingon 03-16-2020 ED Note-Nursing Lab called about add ons Electronically signed by Barbara Holman 03/16/20 20:49 EDT Normal [facility] ED Note-Physicianon 03-16-20 ED Note-Physician Chief [...] that she has residential set up at [facility] in [place], [place] but she has to detox first. [...] as well. She was seen by Alonso, forensic social worker who has arranged for her to go to [facility] tomorrow as patient is interested in treatment. Verbally contracted to safety and filled out a safety plan. Alonso with social work spoke with sales account director, Jelena who will arrange for further follow-up when they arrive tomorrow. Family is agreeable with plan. Patient has good support. They will return if any changes of symptoms or concern. Silvia Castañeda scribing for and in the presence of Dr. Cornell. Scribe Attestation: The information in this document, created by the director medical safety for me, accurately reflects the services I [...] High Lymph Auto 03/16/20 20:39 10.8 Low Hubbard Auto 03/16/20 20:39 11.4 Eos Auto 03/16/20 20:39 0.1 Basophil Auto 03/16/20 20:39 0.4 Neutro Absolute 03/16/20 20:39 10.0 High Lymph Absolute 03/16/20 20:39 1.4 Hubbard Absolute 03/16/20 20:39 1.5 High Eos Absolute [...] DANIELLE, Lima Richards 03/17/2020 04:16 EDT Normal [facility] Ethanolon 03-16-2020 Ethanol [Mass/Vol] mg/dL Normal <=9 [facility] Comment on above: Result Comment: To c onvert mg/dL to g/dL, divide result by 1,000. Legal limit of intoxication is 80 mg/dL (0.08 g/dL). Performed By: #### A LC #### [address] [address] UA w Culture if Indon 2019 Color (U) Terri Normal [facility] Comment on above: Performed By: #### U CI #### [address] [address] Glucose (U) [Mass/Vol] Negative Normal Negative [facility] Comment on above: Performed By: #### U CI #### [address] [place] [address] Ketones Ql (U) 20 mg/dL Abnormal Negative [facility] Comment on above: Performed By: #### U CI #### [address] [place] [address] UA Blood Small Abnormal Negative [facility] Comment on above: Performed By: #### U CI #### [address] [place] [address] UA Clarity Cloudy Normal [facility] Comment on above: Performed By: #### U CI #### [address] [address] UA Leukocyte Esterase Trace Abnormal Negative [facility] Comment on above: Performed By: #### U CI #### [address] [place] [address] UA Nitrite Negative Normal Negative [facility] Comment on above: Performed By: #### U CI #### [address] [address] UA pH 5.0 Normal 4.5 - 7.8 [facility] Comment on above: Performed By: #### U CI #### [address] [address] UA Protein 100 mg/dL Abnormal Negative [facility] Comment on above: Performed By: #### U CI #### [address] [address] UA Source Clean Catch Normal [facility] Comment on above: Performed By: #### U CI #### [address] [address] UA Spec Grav 1.025 Normal 1.003-1.035 [facility] Comment on above: Performed By: #### U CI #### [address] [address] UA Urobilinogen 0.2 mg/dL Normal 0.2 - 1.0 [facility] Comment on above: Performed By: #### U CI #### [address] [address] Urobilinogen Qn (U) Small Abnormal Negative [facility] Comment on above: Performed By: #### U CI #### [address] [address] UDS Compon 03-16-2020 Creatinine [Mass/Vol] mg/dL Normal [facility] Comment on above: Performed By: #### C [id number] #### [address] [address] Ur Amph Scrn Positive Abnormal NEG = <1000 [facility] Comment on above: Result Comment: This unconfirmed positive screening result is to be used for medical treatment purposes only. Unconfirmed screening results must not be used for non-medical purposes. (e.g. employment testing, legal testing). Performed By: #### C [id number] #### [address] [address] Ur Anastasia Scrn Negative Normal NEG = <200 [facility] Comment on above: Performed By: #### C [id number] #### [facility] [address] [place] [address] Ur Benzodia Scrn Negative Normal NEG = <200 [facility] Comment on above: Performed By: #### C [id number] #### [facility] [address] [facility] [place] [place] [address] Ur Cannab Scrn Negative Normal NEG = <50 [facility] Comment on above: Performed By: #### C [id number] #### [facility] [address] [place] [address] Ur Cocaine Scrn Negative Normal NEG = <300 [facility] Comment on above: Performed By: #### C [id number] #### [address] [place] [address] Ur Methadone Scn Negative Normal NEG = <300 [facility] Comment on above: Performed By: #### C [id number] #### [address] [place] [address] Ur Opiate Scrn Negative Normal NEG = <300 [facility] Comment on above: Performed By: #### C [id number] #### [facility] [address] [place] [address], [place] [address] Ur Oxy Screen Negative Normal NEG = <100 [facility] Comment on above: Performed By: #### C [id number] #### [address] [place] [address] Ur Oxy Scrn Qnt 54 ng/mL Normal <=99 [facility] Comment on above: Performed By: #### C [id number] #### [facility] [address] [place] [address] [place] [address] Ur PCP Scrn Negative Normal NEG = <25 [facility] Comment on above: Performed By: #### C [id number] #### [address] [place] [address] UA pH 5.0 Normal 4.5 - 7.8 [facility] Comment on above: Performed By: #### C [id number] #### [facility] [address] [place] [address] UA Spec Grav 1.024 Normal 1.003-1.035 [facility] Comment on above: Performed By: #### C [id number] #### [facility] [address] [place] [address] Chlamydia/GC DNA, Uron 11-23 Chlamydia Probe, Ur Negative Normal NEG [facility] Comment on above: Result Comment: CHLA [...] Performed By: #### H IVCMB, PHEP #### [address] [place], [place] [id number] [employer]: Dom Fowler MD #### CP #### [facility] [address] [place] [address] [employer]: Shakeel Graham MD Gonorrhea Probe, Ur Negative Normal NEG [facility] Comment on above: Result Comment: NEIS [...] Performed By: #### H IVCMB, PHEP #### [address] [place], [place] [id number] [employer]: Dom Fowler MD #### CP #### [facility] [address] [place] [address] [employer]: Shakeel Graham MD Cult,Urineon 11-22-2019 Cult,Urine Specimen Description .VOIDED URINE Special Requests NOT REPORTED Culture NO SIGNIFICANT GROWTH Report Status FINAL 11/22/2019 Normal [facility] Comment on above: Performed By: #### H IVCMB, PHEP #### [facility] [address] [place] [address] [employer]: Dom Fowler MD #### CP #### [facility] [address] [place] [address] [employer]: Shakeel Graham MD HIV Ag/Abon 11-21-2019 HIV Ag/Ab NONREACTIVE Normal [facility] Comment on above: Result Comment: No l aboratory evidence of HIV infection. If acute HIV infection is suspected, consider testing for HIV-1 RNA. Performed By: #### H IVCMB, PHEP #### [address] [address] [employer]: Dom Fowler MD #### CP #### [facility] [address] [place] [address] [employer]: Shakeel Graham MD HIV Screenon 11-21-2019 HIV Ag/Ab NONREACTIVE NONREACTIVE [place] Comment on above: No laboratory eviden ce of HIV infection. If acute HIV infection is suspected, consider testing for HIV-1 RNA. Hep C Abon 11-21-2019 Hep C Ab REACTIVE Abnormal NR [facility] Comment on above: Result Comment: [...] Performed By: #### H IVCMB, PHEP #### [facility] [address] [facility] [place] [address] [employer]: Dom Fowler MD #### CP #### [facility] [address] [place] [address] [place] [address] [employer]: Shakeel Graham MD Profileon 0 Hep B Surf Ag NONREACTIVE Normal NR [facility] Comment on above: Performed By: #### H IVCMB, PHEP #### [address] [address] [employer]: Dom Fowler MD #### CP #### [address] [place] [address] [employer]: Shakeel Graham MD T.pallidum Ab Screen NONREACTIVE Normal NR [facility] Comment on above: Result Comment: T. pallidum antibodies are not detected. There is no serological evidence of infection with T. pallidum (early primary syphilis cannot be excluded). Retest in 2-4 weeks if syphilis is clinically suspect. Performed By: #### H IVCMB, PHEP #### [address] [address] [employer]: Dom Fowler MD #### CP #### [address] [place], [place] [id number] [employer]: Shakeel Graham MD Rubella Ab, IgG 323.1 IU/mL Normal [facility] Comment on above: Result Comment: REFERENCE RANGE: <5.0 NON-REACTIVE (non-immune) 5.0 TO 9.9 EQUIVOCAL >=10.0 REACTIVE (immune) Performed By: #### H IVCMB, PHEP #### [address] [address] [employer]: Dom Fowler MD #### CP #### [address] [place], [place] [id number] [employer]: Shakeel Graham MD HCG, Quanton 11-20-2019 HCG, Quant [id number] IU/L High <5 [facility] Comment on above: Result Comment: Non-preg [...] Performed By: #### H IVCMB, PHEP #### [facility] [address] [place] [address] [employer]: Dom Fowler MD #### CP #### [facility] [address] [place] [address] [employer]: Shakeel Graham MD HCG, Quantitative, on 11-20-2019 hCG Quant [id number] High <5 IU/L [place], [place] Comment on above: Non-preg premeno <=5 Postmeno <=8 Male <=3 If HCG results do not concur with clinical observations, additional testing to confirm results is recommended. Elevated results not associated with may be found in patients with other diseases such as tumors of the germ cells (testis, ovaries, etc.), bladder, pancreas, stomach, lungs, and liver. Interpretation and review of laboratory results Abnormal [place], [place] Hepatitis C Antibodyon 11-19 Hepatitis C Ab REACTIVE Abnormal NONREACTIVE [place], [place] Comment on above: The hepatitis C [...] Interpretation and review of laboratory results Abnormal [place], [place] TYPE AND SCREENon 0 11-20-2019 ABO/Rh Positive [place], [place] Profileon 0 Abs. Basophil 0.03 k/uL Normal 0.00-0.20 [facility] Comment on above: Performed By: #### H IVCMB, PHEP #### [facility] [address] [place] [address] [employer]: Dom Fowler MD #### CP #### [facility] [address] [place] [address] Dr. [place] [id number] [employer]: Shakeel Graham MD Abs.Imm.Granulocyte <0.03 Normal 0.00-0.30 [facility] Comment on above: Performed By: #### H IVCMB, PHEP #### [address] [address] [employer]: Dom Fowler MD #### CP #### [facility] [address] [place] [address] [place] [address] [employer]: Shakeel Graham MD Abs.Neutrophil (Seg) 2.95 k/uL Normal 1.50-8.[address] [facility] Comment on above: Performed By: #### H IVCMB, PHEP #### [place] [address] [employer]: Dom Fowler MD #### CP #### [facility] [address] [place] [address] [place] [address] [employer]: Shakeel Graham MD Basophils/100 WBC (Bld) 1 % Normal 0-2 [facility] Comment on above: Performed By: #### H IVCMB, PHEP #### [place] [address] [employer]: Dom Fowler MD #### CP #### [facility] [address] [place] [address] [place] [address] [employer]: Shakeel Graham MD Eosinophils (Bld) [#/Vol] 0.09 10*3/uL Normal 0.00-0.44 [facility] Comment on above: Performed By: #### H IVCMB, PHEP #### [place] [address] [employer]: Dom Fowler MD #### CP #### [address] [place], [place] [phone] [employer]: Shakeel Graham MD Eosinophils/100 WBC (Bld) 2 % Normal 1-4 [facility] Comment on above: Performed By: #### H IVCMB, PHEP #### [address] [phone] [employer]: Dom Fowler MD #### CP #### [address] [place], [place] [phone] [employer]: Shakeel Graham MD Erythrocyte distribution width (RBC) [Ratio] 14.0 % Normal 11.8-14.4 [facility] Comment on above: Performed By: #### H IVCMB, PHEP #### [address] [id number] [employer]: Dom Fowler MD #### CP #### [address] [place] [id number] [employer]: Shakeel Graham MD Hematocrit (Bld) [Volume fraction] 37.7 % Normal 36.3-47.1 [facility] Comment on above: Performed By: #### H IVCMB, PHEP #### [address] [address] [employer]: Dom Fowler MD #### CP #### [address] [place], [place] [id number] [employer]: Shakeel Graham MD Hemoglobin (Bld) [Mass/Vol] 11.8 g/dL Low 11.9-15.1 [facility] Comment on above: Performed By: #### H IVCMB, PHEP #### [address] [address] [employer]: Dom Fowler MD #### CP #### [address] [place], [place] 8283583 [employer]: Shakeel Graham MD Immature granulocytes (Bld) [#/Vol] 0 % Normal 0 [facility] Comment on above: Performed By: #### H IVCMB, PHEP #### [address] [address] [employer]: Dom Fowler MD #### CP #### [address] [place] [id number] [employer]: Shakeel Graham MD Lymphocytes (Bld) [#/Vol] 1.50 10*3/uL Normal 1.10-3.70 [facility] Comment on above: Performed By: #### H IVCMB, PHEP #### [address] [address] [employer]: Dom Fowler MD #### CP #### [address] [place] [phone] [employer]: Shakeel Graham MD Lymphocytes/100 WBC (Bld) 30 % Normal 24-43 [facility] Comment on above: Performed By: #### H IVCMB, PHEP #### [address] [address] [employer]: Dom Fowler MD #### CP #### [address] [place] [phone] [employer]: Shakeel Graham MD MCH (RBC) [Entitic mass] 26.5 pg Normal 25.2-33.5 [facility] Comment on above: Performed By: #### H IVCMB, PHEP #### [address] [address] [employer]: Dom Fowler MD #### CP #### [address] [place] [phone] [employer]: Shakeel Graham MD MCHC (RBC) [Mass/Vol] 31.3 g/dL Normal 28.4-34.8 [facility] Comment on above: Performed By: #### H IVCMB, PHEP #### [address] [id number] [employer]: Dom Fowler MD #### CP #### [address] [place] [phone] [employer]: Shakeel Graham MD MCV (RBC) [Entitic vol] 84.5 fL Normal 82.6-102.9 [facility] Comment on above: Performed By: #### H IVCMB, PHEP #### [address] [id number] [employer]: Dom Fowler MD #### CP #### [address] [place] [phone] [employer]: Shakeel Graham MD Monocytes (Bld) [#/Vol] 0.37 10*3/uL Normal 0.10-1.20 [facility] Comment on above: Performed By: #### H IVCMB, PHEP #### [address] [id number] [employer]: Dom Fowler MD #### CP #### [address] [place] [phone] [employer]: Shakeel Graham MD Monocytes/100 WBC (Bld) 8 % Normal 3-12 [facility] Comment on above: Performed By: #### H IVCMB, PHEP #### [address] [address] [employer]: Dom Fowler MD #### CP #### [address] [place] [address] [employer]: Shakeel Graham MD Neutrophil (Seg) 59 % Normal 36-65 [facility] Comment on above: Performed By: #### H IVCMB, PHEP #### [address] [place] [address] [employer]: Dom Fowler MD #### CP #### [facility] [address] [place], [place] [id number] [employer]: Shakeel Graham MD NRBC Automated 0.0 per 100 WBC Normal 0.0 [facility] Comment on above: Performed By: #### H IVCMB, PHEP #### [address] [address] [employer]: Dom Fowler MD #### CP #### [facility] [address] [place] [phone] [employer]: Shakeel Graham MD Platelet mean volume (Bld) [Entitic vol] 11.2 fL Normal 8.1-13.5 [facility] Comment on above: Performed By: #### H IVCMB, PHEP #### [address] [address] [employer]: Dom Fowler MD #### CP #### [facility] [address] [place] [phone] [employer]: Shakeel Graham MD Platelets (Bld) [#/Vol] 254 10*3/uL Normal 138-453 [facility] Comment on above: Performed By: #### H IVCMB, PHEP #### [address] [address] [employer]: Dom Fowler MD #### CP #### [facility] [address] [place], [place] [phone] [employer]: Shakeel Graham MD RBC (Bld) [#/Vol] 4.46 10*6/uL Normal 3.95-5.11 [facility] Comment on above: Performed By: #### H IVCMB, PHEP #### [facility] [address] [place] [address] [employer]: Dom Fowler MD #### CP #### [facility] [address] [place] [address] [employer]: Shakeel Graham MD WBC (Bld) [#/Vol] 5.0 10*3/uL Normal 3.5-11.3 [facility] Comment on above: Performed By: #### H IVCMB, PHEP #### [address] [address] [employer]: Dom Fowler MD #### CP #### [facility] [address] [place] [address] [place] [address] [employer]: Shakeel Grhaam MD Auto Diff Performed NOT REPORTED Normal [facility] Comment on above: Performed By: #### H IVCMB, PHEP #### [address] [address] [employer]: Dom Fowler MD #### CP #### [address] [place] [address] [employer]: Shakeel Graham MD Platelets (Bld) [#/Vol] NOT REPORTED Normal [facility] Comment on above: Performed By: #### H IVCMB, PHEP #### [address] [address] [employer]: Dom Fowler MD #### CP #### [address] [place] [address] [employer]: Shakeel Graham MD RBC morphology finding Nom (Bld) NOT REPORTED Normal [facility] Comment on above: Performed By: #### H IVCMB, PHEP #### [address] [address] [employer]: Dom Fowler MD #### CP #### [facility] [address] [place], [place] [phone] [employer]: Shakeel Graham MD WBC Morphology NOT REPORTED Normal [facility] Comment on above: Performed By: #### H IVCMB, PHEP #### [facility] [address] [place] [address] [employer]: Dom Fowler MD #### CP #### [facility] [address] [place] [address] Dr. [place] [phone] [employer]: Shakeel Graham MD Type + Scrnon 11-19 Type + Scrn Negative Normal [facility] Comment on above: Performed By: #### H IVCMB, PHEP #### [address] [address] [employer]: Dom Fowler MD #### CP #### [address] [place] [phone] [employer]: Shakeel Graham MD Toxicology [facility] Amphetamine(s),Ur Negative Normal NEG [facility] Comment on above: Performed By: #### H IVCMB, PHEP #### [address] [address] [employer]: Dom Fowler MD #### CP #### [address] [place], [place] [phone] [employer]: Shakeel Graham MD Barbiturate(s),Ur Negative Normal NEG [facility] Comment on above: Performed By: #### H IVCMB, PHEP #### [address] [address] [employer]: Dom Fowler MD #### CP #### [address] [place] [address] [employer]: Shakeel Graham MD Benzodiazepine(s) Negative Normal NEG [facility] Comment on above: Performed By: #### H IVCMB, PHEP #### [facility] [address] [place] [address] [employer]: Dom Fowler MD #### CP #### [facility] [address] [place] [address] Dr. [place], [place] [phone] [employer]: Shakeel Graham MD Buprenorphrine, Ur Negative Normal NEG [facility] Comment on above: Performed By: #### H IVCMB, PHEP #### [facility] [address] [place] [address] [employer]: Dom Fowler MD #### CP #### [address] [place] [phone] [employer]: Shakeel Graham MD Cannabinoid(s),Ur Negative Normal [facility] Comment on above: Performed By: #### H IVCMB, PHEP #### [facility] [address] [place] [address] [employer]: Dom Fowler MD #### CP #### [address] [place], [place] [phone] [employer]: Shakeel Graham MD Cocaine Metabolite Negative [facility] Comment on above: Performed By: #### H IVCMB, PHEP #### [facility] [address] [place] [address] [employer]: Dom Fowler MD #### CP #### [facility] [address] [place] [address] Dr. [place], [place] [phone] [employer]: Shakeel Graham MD Methadone Ql (U) Negative Normal NEG [facility] Comment on above: Performed By: #### H IVCMB, PHEP #### [address] [address] [employer]: Dom Fowler MD #### CP #### [facility] [address] [place] [address] Dr. [place], [place] [phone] [employer]: Shakeel Graham MD Methamphetamine, Ur Negative Normal NEG [facility] Comment on above: Performed By: #### H IVCMB, PHEP #### [facility] [address] [place] [address] [employer]: Dom Fowler MD #### CP #### [address] [place], [place] [phone] [employer]: Shakeel Graham MD Opiate(s), Ur Negative Normal NEG [facility] Comment on above: Performed By: #### H IVCMB, PHEP #### [address] [address] [employer]: Dom Fowler MD #### CP #### [address] [place], [place] [phone] [employer]: Shakeel Graham MD Oxycodone, Urine Negative Normal NEG [facility] Comment on above: Performed By: #### H IVCMB, PHEP #### [address] [address] [employer]: Dom Fowler MD #### CP #### [address] [place], [place] [phone] [employer]: Shakeel Graham MD Phencyclidine, Ur Negative Normal NEG [facility] Comment on above: Performed By: #### H IVCMB, PHEP #### [address] [address] [employer]: Dom Fowler MD #### CP #### [address] [place], [place] [phone] [employer]: Shakeel Graham MD Propoxyphene,Urine Negative Normal NEG [facility] Comment on above: Performed By: #### H IVCMB, PHEP #### [address] [address] [employer]: Dom Fowler MD #### CP #### [facility] [address] [place] [address] Dr. [place], [place] [phone] [employer]: Shakeel Graham MD Tricyclic antidepressants Screen Ql (U) Negative Normal NEG [facility] Comment on above: Result Comment: Drug screen results are to be used for medical purposes only. All positive results are unconfirmed. Testing for employment or legal uses should be sent to a reference laboratory for confirmation. Performed By: #### H IVCMB, PHEP #### [address] [address] [employer]: Dom Fowler MD #### CP #### [address] [place] [address] [employer]: Shakeel Graham MD Interpretive Info NOT REPORTED Normal [facility] Comment on above: Performed By: #### H IVCMB, PHEP #### [address] [address] [employer]: Dom Fowler MD #### CP #### [address] [place], [place] [id number] [employer]: Shaekel Graham MD MDMA, Urine NOT REPORTED Normal NEG [facility] Comment on above: Performed By: #### H IVCMB, PHEP #### [address] [address] [employer]: Dom Fowler MD #### CP #### [address] [place] [address] [employer]: Shakeel Graham MD Urine Drug Screen, Magda arizmendijudithon 11-20-2019 Amphetamine Screen, Ur Negative NEGATIVE [facility] [place] Barbiturate Screen, Ur Negative NEGATIVE [facility] [place] Benzodiazepine Screen, Urine Negative NEGATIVE [facility] [place] Buprenorphine Urine Negative NEGATIVE [facility] [place] Cannabinoid Scrn, Ur Negative NEGATIVE [facility] [place] Cocaine Metabolite, Urine Negative NEGATIVE [facility] [place] MDMA, Urine NOT REPORTED NEGATIVE [facility] [place] Methadone Screen, Urine Negative NEGATIVE [facility] [place] Methamphetamine, Urine Negative NEGATIVE [facility] [place] Opiates, Urine Negative NEGATIVE [facility] [place] Oxycodone Screen, Ur Negative NEGATIVE [facility] [place] Phencyclidine, Urine Negative NEGATIVE [facility] [place] Propoxyphene, Urine Negative NEGATIVE [facility] [place] Test Information NOT REPORTED [facility] [place] Tricyclic Antidepressants, Urine Negative NEGATIVE [facility] [place] Comment on above: Drug screen results are to be used for medical purposes only. All positive results are unconfirmed. Testing for employment or legal uses should be sent to a reference laboratory for confirmation. Chlamydia/GC DNA, Uron 06-20 Chlamydia Probe, Ur Negative Normal NEG [facility] Comment on above: Result Comment: CHLA [...] nucleic acid target. Performed By: #### U [facility] #### [facility] [address] [place] [address] [employer]: Dom Fowler MD Gonorrhea Probe, Ur Negative Normal NEG [facility] Comment on above: Result Comment: NEIS [...] target. Performed By: #### U CGP #### [address] [address] [employer]: Dom Fowler MD Cult,Urineon 06-20-2019 Cult,Urine Specimen Description .CLEAN CATCH URINE Special Requests NOT REPORTED Culture NO SIGNIFICANT GROWTH Report Status FINAL 06/20/2019 Normal [facility] Comment on above: Performed By: #### H IVCMB, PHEP #### [address] [address] [employer]: Dom Fowler MD #### CP #### [facility] [address] [place] [address] [employer]: Shakeel Graham MD HIV Ag/Abon 06-20-2019 HIV Ag/Ab NONREACTIVE Normal [facility] Comment on above: Result Comment: No l aboratory evidence of HIV infection. If acute HIV infection is suspected, consider testing for HIV-1 RNA. Performed By: #### A HCV, HIVCMB #### [address] [address] [employer]: Dom Fowler MD Hep C Abon 06-20-2019 Hep C Ab REACTIVE Abnormal [facility] Comment on above: Result Comment: The hepatitis [...] Performed By: #### A HCV, HIVCMB #### [address] [address] [employer]: Dom Fowler MD Profileon 9 T.pallidum Ab Screen NONREACTIVE Normal [facility] Comment on above: Result Comment: T. pallidum antibodies are not detected. There is no serological evidence of infection with T. pallidum (early primary syphilis cannot be excluded). Retest in 2-4 weeks if syphilis is clinically suspect. Performed By: #### P RENAT #### [address] [place] [address] [employer]: Dom Fowler MD [facility] [address] [place] [address] Dr. [place], [place] [phone] [employer]: Shakeel Graham MD Hep B Surf Ag NONREACTIVE Normal [facility] Comment on above: Performed By: #### P RENAT #### [address] [address] [employer]: Dom Fowler MD [address] [place] [phone] [employer]: Shakeel Graham MD Rubella Ab, IgG 286.1 IU/mL Normal [facility] Comment on above: Result Comment: REFERENCE RANGE: <5.0 NON-REACTIVE (non-immune) 5.0 TO 9.9 EQUIVOCAL >=10.0 REACTIVE (immune) Performed By: #### P RENAT #### [address] [address] [employer]: Dom Fowler MD [address] [place], [facility]83 [employer]: Shakeel Graham MD HCG, Quanton 06-19-2019 HCG, Quant [id number] IU/L High <5 [facility] Comment on above: Result Comment: Non-preg [...] liver. Performed By: #### B HCG #### [address] [place], [place] [id number] [employer]: Shakeel Graham MD HCG, Quantitative, on 06-19-2019 hCG Quant [id number] High <5 IU/L [place], [place] Comment on above: Non-preg premeno <=5 Postmeno <=8 Male <=3 If HCG results do not concur with clinical observations, additional testing to confirm results is recommended. Elevated results not associated with may be found in patients with other diseases such as tumors of the germ cells (testis, ovaries, etc.), bladder, pancreas, stomach, lungs, and liver. Interpretation and review of laboratory results Abnormal [place] HIV Screenon 06-19-2019 HIV Ag/Ab NONREACTIVE NONREACTIVE [place] Comment on above: No laboratory eviden ce of HIV infection. If acute HIV infection is suspected, consider testing for HIV-1 RNA. Hepatitis C Antibodyon 06-19 Hepatitis C Ab REACTIVE Abnormal NONREACTIVE [place], [place] Comment on above: The hepatitis C [...] Interpretation and review of laboratory results Abnormal [place] PROFILE Ion 019 Basophils (Bld) [#/Vol] 10*3/uL [place] Basophils/100 WBC (Bld) 1 % 0 - 2 % [place] Differential Type NOT REPORTED [place] Eosinophils (Bld) [#/Vol] 0.09 10*3/uL [place] Eosinophils/100 WBC (Bld) 2 % 1 - 4 % [place] Erythrocyte distribution width (RBC) [Ratio] 15.7 % High 11.8 - 14.4 % [place] Hematocrit (Bld) [Volume fraction] 36.5 % 36.3 - 47.1 % [place] Hemoglobin (Bld) [Mass/Vol] 11.2 g/dL Low 11.9 - 15.1 g/dL [place] Hepatitis B Surface Ag NONREACTIVE NONREACTIVE [place] Immature granulocytes (Bld) [#/Vol] 0 % 0 [place] Immature granulocytes (Bld) [#/Vol] 10*3/uL [place] Interpretation and review of laboratory results Abnormal [place] Lymphocytes (Bld) [#/Vol] 1.98 10*3/uL [place] Lymphocytes/100 WBC (Bld) 46 % High 24 - 43 % [place] MCH (RBC) [Entitic mass] 25.6 pg 25.2 - 33.5 pg [place] MCHC (RBC) [Mass/Vol] 30.7 g/dL 28.4 - 34.8 g/dL [place] MCV (RBC) [Entitic vol] 83.3 fL 82.6 - 102.9 fL [place] Monocytes (Bld) [#/Vol] 0.37 10*3/uL [place] Monocytes/100 WBC (Bld) 9 % 3 - 12 % [place] Platelet mean volume (Bld) [Entitic vol] 11.6 fL 8.1 - 13.5 fL [place] Platelets (Bld) [#/Vol] NOT REPORTED [place] Platelets (Bld) [#/Vol] 196 10*3/uL [place] RBC (Bld) [#/Vol] 4.38 10*6/uL 3.95 - 5.1 1 m/uL [place] RBC morphology finding Nom (Bld) NOT REPORTED [place] Rubella virus IgG Ql (S) 286.1 IU/mL [place] Comment on above: REFERENCE RANGE: <5.0 NON-REACTIVE (non-immune) 5.0 TO 9.9 EQUIVOCAL >=10.0 REACTIVE (immune) Segmented neutrophils/100 WBC (Bld) 42 % 36 - 65 % [place] Segs Absolute 1.75 [place] T. pallidum, IgG NONREACTIVE NONREACTIVE [place] Comment on above: T. pallidum antibodies are not detected. There is no serological evidence of infection with T. pallidum (early primary syphilis cannot be excluded). Retest in 2-4 weeks if syphilis is clinically suspect. WBC (Bld) [#/Vol] 4.2 10*3/uL [place] WBC (Bld) [#/Vol] 0.0 10*3/uL 0.0 per 100 WBC [place] WBC Morphology NOT REPORTED [place], [place] TYPE AND SCREENon 1 ABO/Rh Positive [place], [place] Profileon 9 Abs. Basophil <0.03 Normal 0.00-0.20 [facility] Comment on above: Performed By: #### P RENAT #### [address] [address] [employer]: Dom Fowler MD [facility] [address] [place] [address] [place] [address] [employer]: Shakeel Graham MD Abs.Imm.Granulocyte <0.03 Normal 0.00-0.30 [facility] Comment on above: Performed By: #### P RENAT #### [address] [address] [employer]: Dom Fowler MD [facility] [address] [place] [address] [place] [address] [employer]: Shakeel Graham MD Abs.Neutrophil (Seg) 1.75 k/uL Normal 1.50-8.[address] [facility] Comment on above: Performed By: #### P RENAT #### [address] [address] [employer]: Dom Fowler MD [facility] [address] [place] [address] [place] [address] [employer]: Shakeel Graham MD Basophils/100 WBC (Bld) 1 % Normal 0-2 [facility] Comment on above: Performed By: #### P RENAT #### [address] [place] [address] [employer]: Dom Fowler MD [address] Felix [facility]83 [employer]: Shakeel Graham MD Eosinophils (Bld) [#/Vol] 0.09 10*3/uL Normal 0.00-0.44 [facility] Comment on above: Performed By: #### P RENAT #### [address] [address] [employer]: Dom Fowler MD [address] [place] [address] [employer]: Shakeel Graham MD Eosinophils/100 WBC (Bld) 2 % Normal 1-4 [facility] Comment on above: Performed By: #### P RENAT #### [address] [address] [employer]: Dom Fowler MD [address] [place] [phone] [employer]: Shakeel Graham MD Erythrocyte distribution width (RBC) [Ratio] 15.7 % High 11.8-14.4 [facility] Comment on above: Performed By: #### P RENAT #### [address] [address] [employer]: Dom Fowler MD [address] [place] [address] [employer]: Shakeel Graham MD Hematocrit (Bld) [Volume fraction] 36.5 % Normal 36.3-47.1 [facility] Comment on above: Performed By: #### P RENAT #### [address] [address] [employer]: Dom Fowler MD [address] [place] [phone] [employer]: Shakeel Graham MD Hemoglobin (Bld) [Mass/Vol] 11.2 g/dL Low 11.9-15.1 [facility] Comment on above: Performed By: #### P RENAT #### [address] [place] [address] [employer]: Dom Fowler MD [facility] [address] [place] [address] Dr. [place] [id number] [employer]: Shakeel Graham MD Immature granulocytes (Bld) [#/Vol] 0 % Normal 0 [facility] Comment on above: Performed By: #### P RENAT #### [address] [address] [employer]: Dom Fowler MD [address] [place] [phone] [employer]: Shakeel Graham MD Lymphocytes (Bld) [#/Vol] 1.98 10*3/uL Normal 1.10-3.70 [facility] Comment on above: Performed By: #### P RENAT #### [address] [address] [employer]: Dom Fowler MD [address] [place] [phone] [employer]: Shakeel Graham MD Lymphocytes/100 WBC (Bld) 46 % High 24-43 [facility] Comment on above: Performed By: #### P RENAT #### [address] [address] [employer]: Dom Fowler MD [address] [place] [phone] [employer]: Shakeel Graham MD MCH (RBC) [Entitic mass] 25.6 pg Normal 25.2-33.5 [facility] Comment on above: Performed By: #### P RENAT #### [address] [address] [employer]: Dom Fowler MD [facility] [address] [place] [address] Dr. [place], [place] [phone] [employer]: Shakeel Graham MD MCHC (RBC) [Mass/Vol] 30.7 g/dL Normal 28.4-34.8 [facility] Comment on above: Performed By: #### P RENAT #### [address] [id number] [employer]: Dom Fowler MD [address] [place] [phone] [employer]: Shakeel Graham MD MCV (RBC) [Entitic vol] 83.3 fL Normal 82.6-102.9 [facility] Comment on above: Performed By: #### P RENAT #### [address] [address] [employer]: Dom Fowler MD [address] [place] [phone] [employer]: Shakeel Graham MD Monocytes (Bld) [#/Vol] 0.37 10*3/uL Normal 0.10-1.20 [facility] Comment on above: Performed By: #### P RENAT #### [address] [address] [employer]: Dom Fowler MD [address] [place] [phone] [employer]: Shakeel Graham MD Monocytes/100 WBC (Bld) 9 % Normal 3-12 [facility] Comment on above: Performed By: #### P RENAT #### [address] [address] [employer]: Dom Fowler MD [address] [place] [phone] [employer]: Shakeel Graham MD Neutrophil (Seg) 42 % Normal 36-65 [facility] Comment on above: Performed By: #### P RENAT #### [address] [address] [employer]: Dom Fowler MD [facility] [address] [place] [address] [place] [address] [employer]: Shakeel Graham MD NRBC Automated 0.0 per 100 WBC Normal 0.0 [facility] Comment on above: Performed By: #### P RENAT #### [address] [address] [employer]: Dom Fowler MD [facility] [address] [place] [address] [place] [address] [employer]: Shakeel Graham MD Platelet mean volume (Bld) [Entitic vol] 11.6 fL Normal 8.1-13.5 [facility] Comment on above: Performed By: #### P RENAT #### [address] [address] [employer]: Dom Fowler MD [facility] [address] [place] [address] [place] [address] [employer]: Shakeel Graham MD Platelets (Bld) [#/Vol] 196 10*3/uL Normal 138-453 [facility] Comment on above: Performed By: #### P RENAT #### [address] [address] [employer]: Dom Fowler MD [facility] [address] [place] [address] [place] [address] [employer]: Shakeel Graham MD RBC (Bld) [#/Vol] 4.38 10*6/uL Normal 3.95-5.11 [facility] Comment on above: Performed By: #### P RENAT #### [address] [address] [employer]: Dom Fowler MD [facility] [address] [place] [address] [place] [address] [employer]: Shakeel Graham MD WBC (Bld) [#/Vol] 4.2 10*3/uL Normal 3.5-11.3 [facility] Comment on above: Performed By: #### P RENAT #### [address] [address] [employer]: Dom Fowler MD [address] [place] [address] [employer]: Shakeel Graham MD Auto Diff Performed NOT REPORTED Normal [facility] Comment on above: Performed By: #### P RENAT #### [address] [address] [employer]: Dmo Fowler MD [address] [place] [address] [employer]: Shakeel Graham MD Platelets (Bld) [#/Vol] NOT REPORTED Normal [facility] Comment on above: Performed By: #### P RENAT #### [address] [address] [employer]: Dom Fowler MD [address] [place] [address] [employer]: Shakeel Graham MD RBC morphology finding Nom (Bld) NOT REPORTED Normal [facility] Comment on above: Performed By: #### P RENAT #### [address] [address] [employer]: Dom Fowler MD [address] [place] [address] [employer]: Shakeel Graham MD WBC Morphology NOT REPORTED Normal [facility] Comment on above: Performed By: #### P RENAT #### [address] [address] [employer]: Dom Fowler MD [facility] [address] [place], [place] [phone] [employer]: Shakeel Graham MD Type + Scrnon 06-19 Type + Scrn Negative [facility] Comment on above: Performed By: #### P RTYS #### [facility] [address] [place], [place] [phone] [employer]: Shakeel Graham MD Toxicology Scree, Urineon Amphetamine(s),Ur Negative Normal NEG [facility] Comment on above: Performed By: #### C PDAU #### [facility] [address] [place], [place] [phone] [employer]: Shakeel Graham MD Barbiturate(s),Ur Negative Normal NEG [facility] Comment on above: Performed By: #### C PDAU #### [facility] [address] [place], [place] [phone] [employer]: Shakeel Graham MD Benzodiazepine(s) Negative Normal [facility] Comment on above: Performed By: #### C PDAU #### [facility] [address] [place], [place] [id number] [employer]: Shakeel Graham MD Buprenorphrine, Ur Negative Normal NEG [facility] Comment on above: Performed By: #### C PDAU #### [facility] [address] [place], [place] [phone] [employer]: Shakeel Graham MD Cannabinoid(s),Ur Negative Normal NEG [facility] Comment on above: Performed By: #### C PDAU #### [facility] [address] [place], [place] [phone] [employer]: Shakeel Graham MD Cocaine Metabolite Negative Normal [facility] Comment on above: Performed By: #### C PDAU #### [facility] [address] [place], [place] [phone] [employer]: Shakeel Graham MD Methadone Ql (U) Negative Normal NEG [facility] Comment on above: Performed By: #### C PDAU #### [facility] [address] [place] [address] [employer]: Shakeel Graham MD Methamphetamine, Ur Negative Normal NEG [facility] Comment on above: Performed By: #### C PDAU #### [facility] [address] [place], [place] [phone] [employer]: Shakeel Graham MD Opiate(s), Ur Negative Normal NEG [facility] Comment on above: Performed By: #### C PDAU #### [facility] [address] [place], [place] [phone] [employer]: Shakeel Graham MD Oxycodone, Urine Negative Normal NEG [facility] Comment on above: Performed By: #### C PDAU #### [facility] [address] [place], [place] [id number] [employer]: Shakeel Graham MD Phencyclidine, Ur Negative Normal NEG [facility] Comment on above: Performed By: #### C PDAU #### [facility] [address] [place], [place] [phone] [employer]: Shakeel Graham MD Propoxyphene,Urine Negative Normal NEG [facility] Comment on above: Performed By: #### C PDAU #### [facility] [address] [place], [place] [phone] [employer]: Shakeel Graham MD Tricyclic antidepressants Screen Ql (U) Positive Abnormal NEG [facility] Comment on above: Result Comment: Drug screen results are to be used for medical purposes only. All positive results are unconfirmed. Testing for employment or legal uses should be sent to a reference laboratory for confirmation. Performed By: #### C PDAU #### [facility] [address] [place] [address] [employer]: Shakeel Graham MD Interpretive Info NOT REPORTED Normal [facility] Comment on above: Performed By: #### C PDAU #### [facility] [address] [place] [address] [employer]: Shakeel Graham MD MDMA, Urine NOT REPORTED Normal NEG [facility] Comment on above: Performed By: #### C PDAU #### [facility] [address] [place] [address] [employer]: Shakeel Graham MD Urine Drug Screen, Magda [...] [place] MDMA, Urine NOT REPORTED NEGATIVE [facility] [place] Methadone Screen, [...] [place] Tricyclic Antidepressants, Urine Positive Abnormal NEGATIVE [facility] [place] Comment on above: Drug screen results are to be used for medical purposes only. All positive results are unconfirmed. Testing for employment or legal uses should be sent to a reference laboratory for confirmation. HIV Ag/Abon 05-10-2019 HIV Ag/Ab NONREACTIVE Normal NR [facility] Comment on above: Result Comment: No l aboratory evidence of HIV infection. If acute HIV infection is suspected, consider testing for HIV-1 RNA. Performed By: #### H IVCMB, PHEP #### [facility] [address] [place] [address] [employer]: Dom Fowler MD #### CP #### [facility] [address] [place] [address] [address]. [place], [place] [phone] [employer]: Shakeel Graham MD Hepatitis Acute [facility] 05-10 Hep A Ab,IgM NONREACTIVE Normal [facility] Comment on above: Performed By: #### H IVCMB, PHEP #### [address] [address] [employer]: Dom Fowler MD #### CP #### [address] [place], [place] [phone] [employer]: Shakeel Graham MD Hep B Core Ab,IgM NONREACTIVE Normal [facility] Comment on above: Performed By: #### H IVCMB, PHEP #### [address] [address] [employer]: Dom Fowler MD #### CP #### [facility] [address] [place] [address] Dr. [place], [place] [phone] [employer]: Shakeel Graham MD Hep B Surf Ag NONREACTIVE Normal [facility] Comment on above: Performed By: #### H IVCMB, PHEP #### [address] [address] [employer]: Dom Fowler MD #### CP #### [address] [place], [place] [phone] [employer]: Shakeel Grahma MD Hep C Ab REACTIVE Abnormal [facility] Comment on above: Result Comment: The hepatitis [...] Performed By: #### H IVCMB, PHEP #### [address] [address] [employer]: Dom Fowler MD #### CP #### [address] [place], [place] [phone] [employer]: Shakeel Graham MD Comp Metabolic Profon 2018 (cont.) Normal [facility] Comment on above: Result Comment: Aver age GFR for 20-29 years old: 116 mL/min/1.73sq m Chronic Kidney Disease: <60 mL/min/1.73sq m Kidney failure: <15 mL/min/1.73sq m eGFR calculated using average adult body mass. Additional eGFR calculator available at: http://[email or web address]_[email or web address].htm Performed By: #### H IVCMB, PHEP #### [address] [address] [employer]: Dom Fowler MD #### CP #### [facility] [address] [place] [address] Dr[address] [place], [place] [phone] [employer]: Shakeel Graham MD Albumin [Mass/Vol] 4.3 g/dL Normal 3.5-5.2 [facility] Comment on above: Performed By: #### H IVCMB, PHEP #### [address] [address] [employer]: Dom Fowler MD #### CP #### [facility] [address] [place] [address] Dr. [place], [place] [id number] [employer]: Shakeel Graham MD Albumin/Globulin [Mass ratio] 1.4 {ratio} Normal 1.0-2.5 [facility] Comment on above: Performed By: #### H IVCMB, PHEP #### [address] [address] [employer]: Dom Fowler MD #### CP #### [facility] [address] [place], [place] [phone] [employer]: Shakeel Graham MD Alkaline Phos 50 U/L Normal 35-104 [facility] Comment on above: Performed By: #### H IVCMB, PHEP #### [facility] [address] [place] [address] [employer]: Dom Fowler MD #### CP #### [facility] [address] [place] [address] Dr. [place], [place] [id number] [employer]: Shakeel Graham MD ALT [Catalytic activity/Vol] 9 U/L Normal 5-33 [facility] Comment on above: Performed By: #### H IVCMB, PHEP #### [address] [address] [employer]: Dom Fowler MD #### CP #### [address] [place], [place] [id number] [employer]: Shakeel Graham MD Anion gap [Moles/Vol] 8 mmol/L Low 9-17 [facility] Comment on above: Performed By: #### H IVCMB, PHEP #### [address] [address] [employer]: Dom Fowler MD #### CP #### [address] [place], [place] 1986683 [employer]: Shakeel Graham MD AST [Catalytic activity/Vol] 15 U/L Normal <32 [facility] Comment on above: Performed By: #### H IVCMB, PHEP #### [address] [address] [employer]: Dom Fowler MD #### CP #### [address] [place], [place] [id number] [employer] Geological: Shakeel Graham MD Bilirubin Ql (U) 0.31 mg/dL Normal 0.3-1.2 [facility] Comment on above: Performed By: #### H IVCMB, PHEP #### [facility] [address] [place] [address] Drafter Geological: Dom Fowler MD #### CP #### [facility] [address] [place], [place] [id number] [employer] Geological: Shakeel Graham MD BUN/CRE Ratio 20 Normal 9-20 [facility] Comment on above: Performed By: #### H IVCMB, PHEP #### [address] [address] [employer]: Dom Fowler MD #### CP #### [facility] [address] [place] [id number] [employer] Geological: Shakeel Graham MD Calcium [Mass/Vol] 9.4 mg/dL Normal 8.6-10.4 [facility] Comment on above: Performed By: #### H IVCMB, PHEP #### [address] [address] [employer]: Dom Fowler MD #### CP #### [facility] [address] [place] [address] Dr. [place], [place] [id number] [employer] Geological: Shakeel Graham MD Chloride [Moles/Vol] 102 mmol/L Normal 98-[address] [facility] Comment on above: Performed By: #### H IVCMB, PHEP #### [address] [address] [employer]: Dom Fowler MD #### CP #### [facility] [address] [place], [place] [phone] [employer] Geological: Shakeel Graham MD CO2 [Moles/Vol] 28 mmol/L Normal 20-31 [facility] Comment on above: Performed By: #### H IVCMB, PHEP #### [address] [address] [employer]: Dom Fowler MD #### CP #### [facility] [address] [place] [address] [employer] Geological: Shakeel Graham MD Creatinine [Mass/Vol] 0.92 mg/dL High 0.50-0.90 [facility] Comment on above: Performed By: #### H IVCMB, PHEP #### [address] [address] [employer]: Dom Fowler MD #### CP #### [facility] [address] [place], [place] [phone] [employer] Geological: Shakeel Graham MD GFR, Amer >60 Normal >60 [facility] Comment on above: Performed By: #### H IVCMB, PHEP #### [address] [address] [employer]ological: Dom Fowler MD #### CP #### [facility] [address] [place] [address] Dr. [place], [place] [id number] [employer] Geological: Shakeel Graham MD GFR,non Amer >60 Normal >[address] [facility] Comment on above: Performed By: #### H IVCMB, PHEP #### [address] [address] [employer]: Dom Fowler MD #### CP #### [facility] [address] [place], [place] [phone] [employer] Geological: Shakeel Graham MD Glucose [Mass/Vol] 91 mg/dL Normal 70-99 [facility] Comment on above: Performed By: #### H IVCMB, PHEP #### [address] [address] [employer]: Dom Fowler MD #### CP #### [facility] [address] [place] [address] Dr. [place], [place] [phone] [employer]ological: Shakeel Graham MD Potassium [Moles/Vol] 4.3 mmol/L Normal 3.7-5.3 [facility] Comment on above: Performed By: #### H IVCMB, PHEP #### [address] [address] [employer] Geological: Dom Fowler MD #### CP #### [facility] [address] [place] [address] Dr. [place], [place] [id number] [employer] Geological: Shakeel Graham MD Protein [Mass/Vol] 7.4 g/dL Normal 6.4-8.3 [facility] Comment on above: Performed By: #### H IVCMB, PHEP #### [address] [id number] [employer]: Dom Fowler MD #### CP #### [facility] [address] [place] [address] [place], [place] [phone] [employer] Geological: Shakeel Graham MD Sodium [Moles/Vol] 138 mmol/L Normal 135-144 [facility] Comment on above: Performed By: #### H IVCMB, PHEP #### [address] [address] [employer]ological: Dom Fowler MD #### CP #### [address] [place], [place] [phone] Drafter Geological: Shakeel Graham MD Staging: Normal [facility] Comment on above: Result Comment: Stag e 1: Some kidney damage normal GFR Stage 2: Mild kidney damage GFR 60-89 Stage 3: Moderate kidney damage GFR 30-59 Stage 4: Severe kidney damage GFR 15-29 Stage 5: Severe kidney damage GFR <15 ESRD - chronic treatment by dialysis or transplant Performed By: #### H IVCMB, PHEP #### [address] [place] [id number] [employer]ological: Dom Fowler MD #### CP #### [facility] [address] [place] [address] [employer]fter Geological: Shakeel Graham MD Urea nitrogen [Mass/Vol] 18 mg/dL Normal 6-20 [facility] Comment on above: Performed By: #### H IVC, PHEP #### [facility] [address] [place], [place] [id number] Dra[employer]ological: Dom Fowler MD #### CP #### [facility] [address] [place] [address] Drafter Geological: Shakeel Graham MD Comprehensive Metabolic Pane [facility] 05-09-2019 Albumin [Mass/Vol] 4.3 g/dL 3.5 - 5.2 g/dL [place], [place] Albumin/Globulin [Mass ratio] 1.4 {ratio} [place], [place] ALP [Catalytic activity/Vol] 50 U/L 35 - 104 U/L [place] ALT [Catalytic activity/Vol] 9 U/L 5 - 33 U/L [place] Anion gap [Moles/Vol] 8 mmol/L Low 9 - 17 mmol/L [place] AST [Catalytic activity/Vol] 15 U/L <32 [place] Bilirubin Ql (U) 0.31 mg/dL 0.3 - 1.2 mg/dL [place], [place] Bun/Cre Ratio 20 [place] Calcium [Mass/Vol] 9.4 mg/dL 8.6 - 10. 4 mg/dL [place] Chloride [Moles/Vol] 102 mmol/L 98 - 107 mmol/L [place] CO2 [Moles/Vol] 28 mmol/L 20 - 31 mmol/L [place] Creatinine [Mass/Vol] 0.92 mg/dL High 0.5 - 0.9 mg/dL [place] GFR >60 >60 mL/min [place] GFR Non- >60 >60 mL/min [place] Glucose [Mass/Vol] 91 mg/dL 70 - 99 mg/dL [place] Interpretation and review of laboratory results Abnormal [place] Potassium [Moles/Vol] 4.3 mmol/L 3.7 - 5.3 mmol/L [place] Protein [Mass/Vol] 7.4 g/dL 6.4 - 8.3 g/dL [place] Sodium [Moles/Vol] 138 mmol/L 135 - 144 mmol/L [place] Urea nitrogen [Mass/Vol] 18 mg/dL 6 - 20 mg/dL [place] Hepatitis Panel, Acuteon HAV IgM IA Qn (S) NONREACTIVE NONREACTIVE [place] Hep B Core Ab, IgM NONREACTIVE NONREACTIVE [place] Hepatitis B Surface Ag NONREACTIVE NONREACTIVE [place] Hepatitis C Ab REACTIVE Abnormal NONREACTIVE [place], [place] Comment on above: The hepatitis C [...] Interpretation and review of laboratory results Abnormal [place] Metabolic Panelon 05-09-2019 GFR/1.73 sq M predicted among non-blacks MDRD (S/P/Bld) [Vol rate/Area] [place] Comment on above: Average GFR for 20-2 9 years old: 116 mL/min/1.73sq m Chronic Kidney Disease: <60 mL/min/1.73sq m Kidney failure: <15 mL/min/1.73sq m eGFR calculated using average adult body mass. Additional eGFR calculator available at: http://www.Syntaxin.Cytocentrics/multiple_crcl_2012.htm Stage 1: Some kidney damage normal GFR Stage 2: Mild kidney damage GFR 60-89 Stage 3: Moderate kidney damage GFR 30-59 Stage 4: Severe kidney damage GFR 15-29 Stage 5: Severe kidney damage GFR <15 ESRD - chronic treatment by dialysis or transplant Drug Scr, Abuse, Uron 2017 Amphetamine(s),Ur Positive Abnormal NEG [facility] Comment on above: Result Comment: (Pos itive cutoff 1000 ng/mL) Performed By: #### D AU ####[address] [address] Barbiturate(s),Ur Negative Normal NEG [facility] Comment on above: Result Comment: (Pos itive cutoff 200 ng/mL) Performed By: #### D AU ####[address] [address] Base excess Negative Normal NEG [facility] Comment on above: Result Comment: (Pos itive cutoff 300 ng/mL) Performed By: #### D AU ####[address] [address] Benzodiazepine(s) Negative Normal NEG [facility] Comment on above: Result Comment: (Pos itive cutoff 200 ng/mL) Performed By: #### D AU ####[address] [address] Cannabinoid(s),Ur Negative Normal NEG [facility] Comment on above: Result Comment: (Pos itive cutoff 50 ng/mL) Performed By: #### D AU ####[address] [address] Interpretive Info Assay provides medical screening only. The absence of expected drug(s) and/or Normal [facility] Comment on above: Result Comment: meta bolite(s) may indicate diluted or adulterated urine, limitations of testing or timing of collection.Testing for legal purposes should be confirmed by another method. To request confirmation of test result, please call the lab within 7 days of sample submission.Performed at [address] [place] [address] Performed By: #### D AU ####[address] [address] Opiate(s), Ur Negative Normal NEG [facility] Comment on above: Result Comment: (Pos itive cutoff 300 ng/mL) Performed By: #### D AU ####[address] [address] Oxycodone, Urine Negative Normal NEG [facility] Comment on above: Result Comment: (Pos itive cutoff 100 ng/mL) Performed By: #### D AU ####[address] [address] Phencyclidine, Ur Negative Normal NEG [facility] Comment on above: Result Comment: (Pos itive cutoff 25 ng/mL) Performed By: #### D AU ####[address] [address] Urine, methadone presence Negative Normal NEG [facility] Comment on above: Result Comment: (Pos itive cutoff 300 ng/mL) Performed By: #### D AU ####[address] [address] Buprenorphrine, Ur NOT REPORTED Normal NEG [facility] Comment on above: Performed By: #### D AU ####[address] [address] MDMA, Urine NOT REPORTED Normal NEG [facility] Comment on above: Performed By: #### D AU ####[address] [place] [address] Methamphetamine, Ur NOT REPORTED Normal NEG [facility] Comment on above: Performed By: #### D AU ####[address] [place] [address] Propoxyphene,Urine NOT REPORTED Normal NEG [facility] Comment on above: Performed By: #### D AU ####[address] [address] Urine, tricyclic antidepressants NOT REPORTED Normal NEG [facility] Comment on above: Performed By: #### D AU ####[address] [address] Lipid Profileon 11-05-2017 Cholesterol 137 mg/dL Normal <200 [facility] Comment on above: Result Comment: Chol esterol Guidelines: <200 Desirable 200-240 Borderline >240 Undesirable Performed By: #### L IPR ####[address] [address] Cholesterol to HDL Ratio 4.3 {ratio} Normal <5 [facility] Comment on above: Performed By: #### L IPR ####[address] [address] HDL Cholesterol 32 mg/dL Low >40 [facility] Comment on above: Result Comment: HDL Guidelines: <40 Undesirable 40-59 Borderline >59 Desirable Performed By: #### L IPR ####[address] [address] LDL Cholesterol 82 mg/dL Normal 0-130 [facility] Comment on above: Result Comment: LDL Guidelines: <100 Desirable 100-129 Near to/above Desirable 130-159 Borderline >159 UndesirableDirect (measured) LDL and calculated LDL are not interchangeable tests. Performed By: #### L IPR ####[address] [address] Triglyceride 113 mg/dL Normal <150 [facility] Comment on above: Result Comment: Trig lyceride Guidelines: <150 Desirable 150- 199 Borderline 200-499 High >499 Very high Based on AHA Guidelines for fasting triglyceride, June 2012.Performed at [facility] [address] [place] [address] Performed By: #### L IPR ####[facility] [place] [address] Cholesterol in VLDL mass conc NOT REPORTED Normal 10-16 [facility] Comment on above: Performed By: #### L IPR ####[facility] [place] [address] Encounters Encounter Date Encounter Type Care Provider [...] ambulatory DR RODO MENCHACA Facility:H1 Start: 10-25-2022 [facility] Facility:H1 Start: 10-11-2022 End: 10-11-[address] CHRISTINE SÁNCHEZ Facility:H1 Start: 09-12-2022 End: 09-13-[address] YOUSIF APARICIO . Facility:H1 Start: 08-19-2022 Encounter for preprocedural laboratory examination DR YOUSIF APARICIO . [facility] Start: 08-18-2022 End: 08-18-[address] YOUSIF APARICIO . Facility:H1 Start: 08-16-2022 End: 08-17-[address] YOUSIF APARICIO . Facility:H1 Start: 08-16-2022 End: 08-17-2022 Encounter for preprocedural laboratory examination DR YOUSIF APARICIO . Facility:H1 Start: 08-14-2022 End: 08-15-2022 [facility] Facility:H1 Start: 07-27-2022 End: 07-28-[address] YOUSIF APARICIO . Facility:H1 Start: 07-09-2022 End: 07-09-[address] ELISEO HARDING Facility:H1 Start: 12-12-2021 Telephone encounter King zee MD Work Phone: Hematology/Oncology Comment on above: Lab Orders Start: 10-28-2021 Chart abstracting King fleming MD Work Phone: Hematology/Oncology Start: 04-26-2020 End: 04-27-2020 Patient encounter procedure ANTHONY PABON [facility] Start: 04-26-2020 End: 04-26-2020 Subsequent hospital visit by physician Rochelle ALFRED Laboratory Start: 03-16-2020 End: 03-17-2020 Emergency department patient visit [place] [facility] Start: 11-20-2019 End: 11-21-2019 Patient encounter procedure [place] [facility] Start: 11-20-2019 End: 11-20-2019 Subsequent hospital visit by physician Rochelle ALFRED Laboratory Comment on above: History of miscarria ge, currently ; Amenorrhea; Positive urine test; Encounter for supervision of normal in first trimester, unspecified ; Spotting in early Start: 06-19-2019 End: 06-20-2019 Patient encounter procedure [place] [facility] Start: 06-19-2019 End: 06-19-2019 Subsequent hospital visit by physician Rochelle ALFRED Laboratory Comment on above: Amenorrhea; Positive urine test; Encounter for supervision of normal in first trimester, unspecified ; Spotting in early Start: 05-09-2019 End: 05-10-2019 Patient encounter procedure KADI SCHROEDER [facility] Start: 05-09-2019 End: 05-09-2019 Subsequent hospital visit by physician Rochelle ALFRED Laboratory Start: 11-05-2017 End: 11-07-2017 Evaluation and management of inpatient ANGELO SPICER [facility] Procedures Date Procedure Procedure Detail Performing Clinician Start: 04-26-2020 Acute hepatitis panel D DELLA SCHROEDER Start: 04-26-2020 Antibody hiv-1&hiv-2 single result KADI DESTINY Start: 04-26-2020 Blood count complete automated KADI DESTINY Start: 04-26-2020 Comprehensive metabo lic panel KADI DESTINY Start: 04-26-2020 Gonadotropin chorion ic qualitative KADI DESTINY Start: 04-26-2020 Iadna hepatitis c qu ant & reverse dispatcher maintenance KADI DESTINY Start: 04-26-2020 Acute hepatitis panel [...] Phone: Start: 11-20-2019 Hepatitis c antibody Ka stephaine E Pool Work Phone: Start: 11-20-2019 Obstetric [...] VIKA SPICER Start: 11-05-2017 Lipid panel ANGELO HARDNESS TESTER Start: 11-05-2017 DIET GENERAL ANGELO HARDNESS TESTER Start: 11-05-2017 FULL CODE ANGELO HARDNESS TESTER Start: 11-05-2017 IP CONSULT TO HISTOR Y [...] type Expected: 12/12/2021, Expires: 02/11/2022 [facility] Work Phone: Comment on above: Expected: 12/12/2021 , Expires: 02/11/2022 Start: 05-18-2021 Influenza vaccination INFLUENZA (#1) [facility] Start: 06-26-2020 Cervical cancer screen Cervical canc [place] Comment on above: Postponed from 01/11 (Not Indicated) Start: 06-26-2020 Screening for malign ant neoplasm of cervix Cervical cancer screen [place] Comment on above: Postponed from 01/11 (Not Indicated) Start: 05-18-2020 Influenza vaccination Flu vaccine (# 1) [facility] Start: 11-21-2019 End: 11-21-2019 Ancillary Procedure 11/21/2019 Ancillary Procedure Obstetrics and Gynecology [facility] Start: 06-26-2019 End: 06-26-2019 Routine 06/26/2019 Routine Obstetrics and Gynecology Georgette Leung APRN - [facility] [place] [address] [phone] [facility] 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 Start: 05-18-2019 Influenza vaccination Flu vaccine (# 1) [place] Start: 2015 Cervical cancer screen Cervical canc er screen [place] Start: 2015 PAP TESTING PAP TESTING [facility] Start: 2013 DTaP/Tdap/Td vaccine (1 - Tdap) DTaP/Tdap/Td vaccine (1 - Tdap) [place] Start: 2013 Urine microalbumin profile DTAP,TDAP,TD (1 - Tdap) [facility] Start: 01-12-2012 HEPATITIS C SCREENING HEPATITIS C SC REENING [facility] Start: 01-12-2012 HIV SCREENING HIV SCREENING [facility] Start: 2009 HPV vaccine (1 - Fem larissa 3-dose series) HPV vaccine (1 - Female 3-dose series) [place] Start: 2007 Varicella Vaccine (1 of 2 - 13+ 2-dose series) Varicella Vaccine (1 of 2 - 13+ 2-dose series) [place] Start: 2006 Adult depression screening assessment DEPRESSION SCREENING [facility] Start: 2005 DTaP/Tdap/Td vaccine (1 - Tdap) DTaP/Tdap/Td vaccine (1 - Tdap) [place] Start: 2005 HPV vaccine (1 - 2-d ose series) HPV vaccine (1 - 2-dose series) [place] Start: 2005 HPV vaccine (1 - Fem larissa 2-dose series) HPV vaccine (1 - Female 2-dose series) [place] Start: 01-12-2000 Pneumococcal 0-64 ye ars Vaccine (1 of 1 - PPSV23) Pneumococcal 0-64 years Vaccine (1 of 1 - PPSV23) [place] Start: 1999 COVID-19 VACCINE (1) COVID-19 VACCIN E (1) [facility] Start: 1995 Varicella vaccine (1 of 2 - 2-dose childhood series) Varicella vaccine (1 of 2 - 2-dose childhood series) [place] End: 11-20-2019 Bacteria identified Cx Nom (U) Urine Culture Microbiology Routine Amenorrhea Positive urine test Encounter for supervision of normal in first trimester, unspecified 1 Occurrences starting 11/20/2019 until 11/20/2019 [place] Comment on above: 1 Occurrences starti ng 11/20/2019 until 11/20/2019 Bacteria identified Cx Nom (U) [place] End: 06-19-2019 Bacteria identified Cx Nom (U) Urine Culture Microbiology Routine Amenorrhea Positive urine test Encounter for supervision of normal in first trimester, unspecified 1 Occurrences starting 06/19/2019 until 06/19/2019 [place] Comment on above: 1 Occurrences starti ng 06/19/2019 until 06/19/2019 End: 11-20-2019 C.trachomatis N.gonorrhoeae DNA, Urine C.trachomatis N.gonorrhoeae DNA, Urine Microbiology Routine Amenorrhea Positive urine test Encounter for supervision of normal in first trimester, unspecified 1 Occurrences starting 11/20/2019 until 11/20/2019 [place] Comment on above: 1 Occurrences starti ng 11/20/2019 until 11/20/2019 C.trachomatis N.gonorrhoeae DNA, Urine [place] End: 06-19-2019 C.trachomatis N.gonorrhoeae DNA, Urine C.trachomatis N.gonorrhoeae DNA, Urine Microbiology Routine Amenorrhea Positive urine test Encounter for supervision of normal in first trimester, unspecified 1 Occurrences starting 06/19/2019 until 06/19/2019 [place] Comment on above: 1 Occurrences starti ng 06/19/2019 until 06/19/2019 End: 04-26-2020 Hepatitis C RNA, quantitative, PCR Hepatitis C RNA, quantitative, PCR Lab Routine Once for 1 Occurrences starting 04/26/2020 until 04/26/2020 [place] Comment on above: Once for 1 Occurrenc es starting 04/26/2020 until 04/26/2020 Hepatitis C RNA, quantitative, PCR Hepatitis C RNA, quantitative, PCR Lab Routine 04/26/2020 7:30 AM EDT [place] End: 05-09-2019 HIV Screen HIV Screen Lab Routine Once for 1 Occurrences starting 05/09/2019 until 05/09/2019 [facility] Comment on above: Once for 1 Occurrenc es starting 05/09/2019 until 05/09/2019 HIV Screen HIV Screen Lab R outine 05/09/2019 2:53 PM EDT [facility] PROF ILE I Lab Routine Amenorrhea Positive urine test Encounter for supervision of normal in first trimester, unspecified 11/20/2019 12:26 PM EST [facility] Payers Date Payer Category Payer Medicaid [place] [employer] [place] [employer] [id number] 2020-Present [phone] [address] [facility] [place] [address] Medicaid [id number] 2020 Unknown 2016 Unknown [facility] xxxxxxxxxxxx 2016-Present [phone] [address] [facility] [place] [address] xxxxxxxxxxxx [id number] 1994 Unknown [id number] 1994 Unknown [id number] 2.16.840.1.112465.3.579.2.173 1994 Unknown [id number] 2.16.840.1.617503.3.579.2.173 1994 Unknown [id number] 2.16.840.1.641144.3.579.2.173 1994 Unknown [id number] 2.16.840.1.881103.3.579.2.173 1994 Unknown [id number] 2.16.840.1.914941.3.579.2.593 1994 Unknown [id number] 2.16.840.1.696252.3.579.2.593 1994 Unknown [id number] 2.16.840.1.039500.3.579.2.593 1994 Unknown [id number] 2.16.840.1.297423.3.579.2.593 1994 Unknown [id number] 2.16.840.1.855746.3.579.2.593 1994 Unknown [id number] 2.16.840.1.529128.3.579.2.593 1994 Unknown [id number] 2.16.840.1.795942.3.579.2.593 1994 Unknown [id number] 2.16.840.1.767792.3.579.2.593 1994 Unknown [id number] 2.16.840.1.747555.3.579.2.593 1994 Unknown [id number] 2.16.840.1.345397.3.579.2.593 1994 Unknown [id number] 2.16.840.1.293377.3.579.2.125 9 1994 Unknown [id number] 2.16.840.1.636184.3.579.2.125 9 1994 Unknown [id number] 2.16.840.1.204386.3.579.2.125 9 1994 Unknown [id number] 2.16.840.1.582316.3.579.2.125 9 1959 Unknown [id number] Social History Date Type Detail Facility Start: 11-05-2017 End: 10-28-2021 Tobacco smoking status FLIS Never smoker [facility] Start: 11-05-2017 End: 06-19-2019 Alcohol intake No [place] Start: 1994 Sex Assigned At Not on file [place] Start: 06-19-2019 End: 11-20-2019 Tobacco smoking status NHIS Current every day smoker [facility] Start: 06-19-2019 End: 11-20-2019 Cigarettes smoked current (pack per day) - Reported [facility] Start: 11-20-2019 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 PREOPERATIVE DIAGNOSIS: Missed . POSTOPERATIVE DIAGNOSIS: Missed . ANESTHESIA: General. SURGEON: Yousif Aparicio D.O. ESTATE ADMINISTRATOR: None. BLOOD LOSS: 75 mL. URINE OUTPUT: [...] products of conception were removed using a 10-[place] suction curette. Excellent hemostasis was noted. The patient tolerated the procedure well. Sponge, lap, and needle counts were correct x 2. All instruments were then removed from the patient's vagina. The patient was taken to the Recovery Room in stable condition. ?? [facility] Note 12-12-2021 Telephone Encounter - December - 12/12/2021 11:16 AM EDT Note Date & Type Note Facility 12-12-2021 Miscellaneous Notes Pleases sign pending new cbc order. Thanks, Angelia Almazan MA documented in this encounter [facility] Progress note 11-08-2021 Note Date & Type Note Facility 11-08-2021 Note HNO ID: [id number] Author: King Suazo MD Service: ? Author Type: Physician Type: Progress Notes Filed: 11/08/2021 3:47 PM Note Text: PATIENT NAME: Noe Ervin DATE: 11/08/2021 PRIMARY CARE PHYSICIAN: Dr. Rodo Menchaac OTHER PHYSICIANS: Dr. Yousif Aparicio HPI: This [...] shortness of breath, and is seen at [facility] emergency room. Labs revealed a hemoglobin of [...] biceps/brachioradial/patella/achilles. MUSCULOSKELETAL: Neg (more content not included)... 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 Advance Directives and Living Will Power of Assembler Wet Wash Latest Code Status on File Code Status [...] content) DATE CREATED AUTHOR 03/08/2018 [facility] DATE CREATED AUTHOR AUTHOR'S ORGANIZ ATION 04/08/2020 [facility] DATE CREATED AUTHOR AUTHOR'S ORGANIZ ATION 04/28/2020 [facility] DATE CREATED AUTHOR AUTHOR'S ORGANIZ ATION 12/13/2021 [facility] DATE CREATED AUTHOR AUTHOR'S ORGANIZ ATION 12/25/2022 [facility] DATE CREATED AUTHOR AUTHOR'S CHERIE MARTINEZ 10/10/2023 [facility] EPIC Source Comments (unrecognize d section and content) In the event this informatio n is protected by the Federal Confidentiality of Alcohol and Drug Abuse Patient Records regulations: The Federal rules restrict any use of the information to criminally investigate or prosecute any alcohol or drug abuse patient.[facility] the event this information is protected by the Federal Confidentiality of Alcohol and Drug Abuse Patient Records regulations: The Federal rules restrict any use of the information to criminally investigate or prosecute any alcohol or drug abuse patient.[facility] Reason for Visit (unrecogniz ed section and content) Reason Comments Lab Orders Care Teams (unrecognized sec tion and content) Scanning Manager Relationship Specialty Start Date End Date Rodo Menchaca [address] [place] [address] PCP - General Family Practice 11/08/21 FOR [...] BE BASED ON THE PRIMARY CLINICAL RECORDS. [facility] [employer] provides no warranty or guarantee of the accuracy or completeness of information in this document.
== END 2023-10-09 15:48 | disposition home or self-care (01) ==
LOC: FBCO 07:22 → FBC 14:59
PROVIDERS: Visit Provider Obstetrics & Gynecology
DX: O41.03X0 Oligohydramnios, third trimester, not applicable or unspecified (principal); Z3A.00 Weeks of gestation of pregnancy not specified
CPT/HCPCS: 59025

== ENCOUNTER 2023-10-29 23:07 | Inpatient (IN) | payer OTHER, SELFPAY ==
[2023-10-29 23:13] VITALS: BP 136/77; PULSE 112
[2023-10-29] MEDS: OXYTOCIN/0.9 % SODIUM CHLORIDE 20 UNITS/1,000 ML PLAST..BAG 125 UNIT IV (23:13)
--- OUTSIDE RECORDS SUMMARY | 2023-10-29 23:16 | XMS_ITS | CCD ---
Author Name Unknown Address [id number] [place] [address] Organization [facility] Care Team Providers Care Habilitative Interventionist Name Role Phone ANGELO SPICER Unavailable Unavailable LIGIA SPICEREEP Unavailable Unavailable ROCHELLE WILLAMS Unavailable Unavailable Rochelle Willams Primary Care Provider [phone] Lima Cornell Attending Unavailab le Rochelle Willams [...] ble ROBBY ., DR MENENDEZ Attending Unavailable ROBYB ., DR MENENDEZ Admitting Unavailable MEAGHAN, DR [...] Primary Care Unavaila ble ROBBY ., DR MENENDZE Consulting Unavailable [facility] Primary Care Unavaila ble ROBBY ., DR MENENDEZ Attending Unavailable ROBBY ., DR MENENDEZ Admitting Unavailable NADERER, DR RODO Dickerson Consulting Unavailable NADERER, DR RODO Dickerson Attending Unavailable NADERER, DR RODO Dickerson Admitting Unavailable [facility][1] Primary Care Unavaila ble GRECHNY ., ADELITA ORELLANA Consulting Unavailluis CAMARILLO, MYLES Alex Consulting Unavailable GAYE, GURU Consulting Unavailable ALFREDDOYOSEPH, ALIX Consulting Unavailable LINA, KAMILLA Consulting Unavailable SISTER, DANIELA Consulting Unavailable ROBBY ., DR MENENDEZ Consulting Unavailable [facility][1] Primary Care Unavaila ble ROBBY ., DR MENENDEZ Attending Unavailable ROBBY ., DR MENENDEZ Admitting Unavailable ELENITA, NGOC Consulting Unavailable GEMBUS, AUGUSTUS Consulting Unavailable [facility][1] Primary Care Unavaila ble ROBBY ., DR MENENDEZ Consulting Unavailable ROBBY ., DR MENENDEZ Attending Unavailable ROBBY ., DR MENENDEZ Admitting Unavailable ZIEBER, DR CHRISTINE Benites Consulting Unavailable ROBBY ., DR MENENDEZ Consulting Unavailable [facility][1] Primary Care Unavaila ble ROBBY ., DR [...] Propensity to adverse reactions to drug (disorder) [facility] Repository Medications Current Medications Medication [...] Onset: 11-05-2017 Other aftercare (1 source) Other usp (current) drug therapy; Translations: [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 Hemanth Kerr CBC AUTO DIFFon 11-29-2022 BASO # 0.0 103/ul Normal 0.0-0.1 [facility] Comment on above: Performed By: #### C BC #### [facility] [address] [place] [address] Dr. Hemanth Kerr Basophils/100 WBC (Bld) 0.7 % Normal 0.2-2.0 [facility] Comment on above: Performed By: #### C BC #### [facility] [address] [place] [address] Dr. Hemanth Kerr EO # 0.2 103/ul Normal 0.0-0.7 [facility] Comment on above: Performed By: #### C BC #### [facility] [address] [place] [address] Dr. Hemanth Kerr Eosinophils/100 WBC (Bld) 3.3 % Normal 0.9-7.0 [facility] Comment on above: Performed By: #### C BC #### [facility] [address] [place] [address] Dr. Hemanth Kerr Erythrocyte distribution width (RBC) [Ratio] 14.3 % Normal 11.0-15.0 [facility] Comment on above: Performed By: #### C BC #### [facility] [address] [place] [address] Dr. Hemanth Kerr Hematocrit (Bld) [Volume fraction] 37.2 % Normal 36.0-48.0 [facility] Comment on above: Performed By: #### C BC #### [facility] [address] [place] [address] Dr. Hemanth Kerr Hemoglobin (Bld) [Mass/Vol] 11.9 g/dL Critically low 12.0-16.0 [facility] Comment on above: Performed By: #### C BC #### [facility] [address] [place] [address] Dr. Hemanth Kerr IG # 0.01 10e3/ul Normal 0.00-0.03 [facility] Comment on above: Performed By: #### C BC #### [facility] [address] [place] [address] Dr. Hemanth Kerr IG % 0.2 % Normal 0.0-0.5 [facility] Comment on above: Performed By: #### C BC #### [facility] [address] [place] [address] Dr. Hemanth Kerr LYMPH # 1.7 103/ul Normal 1.2-3.8 [facility] Comment on above: Performed By: #### C BC #### [facility] [address] [place] [address] Dr. Hemanth Kerr Lymphocytes/100 WBC (Bld) 31.3 % Normal 20.5-60.0 [facility] Comment on above: Performed By: #### C BC #### [facility] [address] [place] [address] Dr. Hemanth Kerr MANUAL DIFF REQ NO Normal [facility] Comment on above: Performed By: #### C BC #### [facility] [address] [place] [address] Dr. Hemanth Kerr MCH (RBC) [Entitic mass] 27.8 pg Normal 26.7-34.0 [facility] Comment on above: Performed By: #### C BC #### [facility] [address] [place] [address] Dr. Hemanth Kerr MCHC (RBC) [Mass/Vol] 32.0 g/dL Normal 29.9-35.2 [facility] Comment on above: Performed By: #### C BC #### [facility] [address] [place] [address] Dr. Hemanth Kerr MCV (RBC) [Entitic vol] 86.9 fL Normal 81.0-99.0 [facility] Comment on above: Performed By: #### C BC #### [facility] [address] [place] [address] Dr. Hemanth Kerr MONO # 0.4 103/ul Normal 0.3-0.8 [facility] Comment on above: Performed By: #### C BC #### [facility] [address] [place] [address] Dr. Hemanth Kerr Monocytes/100 WBC (Bld) 8.0 % Normal 1.7-12.0 [facility] Comment on above: Performed By: #### C BC #### [facility] [address] [address] [address] Hemanth Kerr NEUT # 3.1 103/ul Normal 1.4-6.5 [facility] Comment on above: Performed By: #### C BC #### [facility] [address] [place] [address] Dr. Hemanth Kerr Neutrophils/100 WBC (Bld) 56.5 % Normal 43.0-75.0 [facility] Comment on above: Performed By: #### C BC #### [facility] [address] [place] [address] Dr. Hemanth Kerr Platelet mean volume (Bld) [Entitic vol] 10.3 fL Normal 9.5-13.5 [facility] Comment on above: Performed By: #### C BC #### [facility] [address] [place] [address] Dr. Hemanth Kerr PLT 258 103/ul Normal 150-450 [facility] Comment on above: Performed By: #### C BC #### [facility] [address] [place] [address] Dr. Hemanth Kerr RBC 4.28 106/ul Normal 4.20-5.40 [facility] Comment on above: Performed By: #### C BC #### [facility] [address] [place] [address] Dr. Hemanth Kerr WBC 5.4 103/ul Normal 4.0-11.0 [facility] Comment on above: Performed By: #### C BC #### [facility] [address] [place] [address] Dr. Hemanth Kerr PROF 14(COMP METB)on 023 Albumin [Mass/Vol] 3.1 g/dL Critically low 3.4-5.0 [facility] Comment on above: Performed By: #### C MP #### [facility] [address] [place] [address] Dr. Hemanth Kerr Albumin/Globulin [Mass ratio] 1.3 {ratio} Normal [facility] Comment on above: Performed By: #### C MP #### [facility] [address] [address] [address] Hemanth Kerr ALP [Catalytic activity/Vol] 56 U/L Normal 46-116 [facility] Comment on above: Performed By: #### C MP #### [facility] [address] [address] [address] Hemanth Kerr ALT [Catalytic activity/Vol] 34 U/L Normal 14-59 [facility] Comment on above: Performed By: #### C MP #### [facility] [address] [place] [address] Dr. Hemanth Kerr Anion gap [Moles/Vol] 7.0 mmol/L Normal [facility] Comment on above: Performed By: #### C MP #### [facility] [address] [place] [address] Dr. Hemanth Kerr AST [Catalytic activity/Vol] 29 U/L Normal 15-37 [facility] Comment on above: Performed By: #### C MP #### [facility] [address] [place] [address] Dr. Hemanth Kerr Bilirubin [Mass/Vol] 0.4 mg/dL Normal 0.2-1.0 [facility] Comment on above: Performed By: #### C MP #### [facility] [address] [place] [address] Dr. Hemanth Kerr Calcium [Mass/Vol] 8.3 mg/dL Critically low 8.5-10.1 [facility] Comment on above: Performed By: #### C MP #### [facility] [address] [place] [address] Dr. Hemanth Kerr Chloride [Moles/Vol] 110 mmol/L Critically high 98-107 [facility] Comment on above: Performed By: #### C MP #### [facility] [address] [place] [address] Dr. Hemanth Kerr CO2 [Moles/Vol] 27.6 mmol/L Normal 21.0-32.0 [facility] Comment on above: Performed By: #### C MP #### [facility] [address] [place] [address] Dr. Hemanth Kerr Creatinine [Mass/Vol] 0.61 mg/dL Normal 0.55-1.02 [facility] Comment on above: Performed By: #### C MP #### [facility] [address] [place] [address] Dr. Hemanth Kerr EGFR-AF MALTESE >60 Normal >=60 [facility] Comment on above: Performed By: #### C MP #### [facility] [address] [address] [address] Hemanth Kerr EGFR-NON AF MALTESE >60 Normal >=60 [facility] Comment on above: Performed By: #### C MP #### [facility] [address] [place] [address] Dr. Hemanth Kerr Globulin (S) [Mass/Vol] 2.4 g/dL Normal [facility] Comment on above: Performed By: #### C MP #### [facility] [address] [place] [address] Dr. Hemanth Kerr Glucose [Mass/Vol] 110 mg/dL Critically high 74-106 [facility] Comment on above: Performed By: #### C MP #### [facility] [address] [place] [address] Dr. Hemanth Kerr Potassium [Moles/Vol] 2.6 mmol/L Critically low 3.5-5.1 [facility] Comment on above: Performed By: #### C MP #### [facility] [address] [place] [address] Dr. Hemanth Kerr Protein [Mass/Vol] 5.5 g/dL Critically low 6.4-8.2 [facility] Comment on above: Performed By: #### C MP #### [facility] [address] [place] [address] Dr. Hemanth Kerr Sodium [Moles/Vol] 142 mmol/L Normal 136-145 [facility] Comment on above: Performed By: #### C MP #### [facility] [address] [place] [address] Dr. Hemanth Kerr Urea nitrogen [Mass/Vol] 12.0 mg/dL Normal 7.0-18.0 [facility] Comment on above: Performed By: #### C MP #### [facility] [address] [address] [address] Hemanth Kerr Urea nitrogen/Creatinine [Mass ratio] 19.7 mg/mg Normal [facility] Comment on above: Performed By: #### C MP #### [facility] [address] [address] [address] Hemanth Kerr XR HIP LT 2 [...] ALIX GRANADOS Date: 2022-11-28 22:13 Normal [facility] ACETAMINOPHENon 11-28-2022 Acetaminophen [Mass/Vol] ug/mL Critically low 10.0-30.0 [facility] Comment on above: Performed By: #### C MP #### [facility] [address] [address] [address] Hemanth Kerr ACETONE SERUMon 11-28-2022 ACETONE Negative Normal NEGATIVE [facility] Comment on above: Performed By: #### P REG #### [facility] [address] [address] [address] Hemanth Kerr AMMONIAon 11-28-2022 Ammonia (P) [Moles/Vol] 24 umol/L Normal - [facility] Comment on above: Performed By: #### L ACT #### [facility] [address] [address] [address] Hemanth Kerr CBC AUTO DIFFon 11-28-2022 BASO # 0.0 103/ul Normal 0.0-0.1 [facility] Comment on above: Performed By: #### L ACT #### [facility] [address] [address] [address] Hemanth Kerr Basophils/100 WBC (Bld) 0.4 % Normal 0.2-2.0 [facility] Comment on above: Performed By: #### L ACT #### [facility] [address] [place] [address] Dr. Hemanth Kerr EO # 0.3 103/ul Normal 0.0-0.7 [facility] Comment on above: Performed By: #### L ACT #### [facility] [address] [place] [address] Dr. Hemanth Kerr Eosinophils/100 WBC (Bld) 3.1 % Normal 0.9-7.0 [facility] Comment on above: Performed By: #### L ACT #### [facility] [address] [place] [address] Dr. Hemanth Kerr Erythrocyte distribution width (RBC) [Ratio] 14.3 % Normal 11.0-15.0 [facility] Comment on above: Performed By: #### L ACT #### [facility] [address] [place] [address] Dr. Hemanth Kerr Hematocrit (Bld) [Volume fraction] 41.3 % Normal 36.0-48.0 [facility] Comment on above: Performed By: #### L ACT #### [facility] [address] [place] [address] Dr. Hemanth Kerr Hemoglobin (Bld) [Mass/Vol] 13.3 g/dL Normal 12.0-16.0 [facility] Comment on above: Performed By: #### L ACT #### [facility] [address] [place] [address] Dr. Hemanth Kerr IG # 0.02 10e3/ul Normal 0.00-0.03 [facility] Comment on above: Performed By: #### L ACT #### [facility] [address] [place] [address] Dr. Hemanth Kerr IG % 0.2 % Normal 0.0-0.5 [facility] Comment on above: Performed By: #### L ACT #### [facility] [address] [place] [address] Dr. Hemanth Kerr LYMPH # 2.4 103/ul Normal 1.2-3.8 [facility] Comment on above: Performed By: #### L ACT #### [facility] [address] [place] [address] Dr. Hemanth Kerr Lymphocytes/100 WBC (Bld) 26.3 % Normal 20.5-60.0 [facility] Comment on above: Performed By: #### L ACT #### [facility] [address] [place] [address] Dr. Hemanth Kerr MANUAL DIFF REQ NO Normal [facility] Comment on above: Performed By: #### L ACT #### [facility] [address] [place] [address] Dr. Hemanth Kerr MCH (RBC) [Entitic mass] 27.4 pg Normal 26.7-34.0 [facility] Comment on above: Performed By: #### L ACT #### [facility] [address] [place] [address] Dr. Hemanth Kerr MCHC (RBC) [Mass/Vol] 32.2 g/dL Normal 29.9-35.2 [facility] Comment on above: Performed By: #### L ACT #### [facility] [address] [place] [address] Dr. Hemanth Kerr MCV (RBC) [Entitic vol] 85.0 fL Normal 81.0-99.0 [facility] Comment on above: Performed By: #### L ACT #### [facility] [address] [place] [address] Dr. Hemanth Kerr MONO # 0.7 103/ul Normal 0.3-0.8 [facility] Comment on above: Performed By: #### L ACT #### [facility] [address] [place] [address] Dr. Hemanth Kerr Monocytes/100 WBC (Bld) 7.3 % Normal 1.7-12.0 [facility] Comment on above: Performed By: #### L ACT #### [facility] [address] [place] [address] Dr. Hemanth Kerr NEUT # 5.7 103/ul Normal 1.4-6.5 [facility] Comment on above: Performed By: #### L ACT #### [facility] [address] [address] [address] Hemanth Kerr Neutrophils/100 WBC (Bld) 62.7 % Normal 43.0-75.0 [facility] Comment on above: Performed By: #### L ACT #### [facility] [address] [address] [address] Hemanth Kerr Platelet mean volume (Bld) [Entitic vol] 10.6 fL Normal 9.5-13.5 [facility] Comment on above: Performed By: #### L ACT #### [facility] [address] [address] [address] Hemanth Kerr PLT 347 103/ul Normal 150-450 [facility] Comment on above: Performed By: #### L ACT #### [facility] [address] [place] [address] Dr. Hemanth Kerr RBC 4.86 106/ul Normal 4.20-5.40 [facility] Comment on above: Performed By: #### L ACT #### [facility] [address] [place] [address] Dr. Hemanth Kerr WBC 9.1 103/ul Normal 4.0-11.0 [facility] Comment on above: Performed By: #### L ACT #### [facility] [address] [place] [address] CSPINE WO CONon [...] KAMILLA MILLS Date: 2022-11-28 17:54 Normal [facility] CT HEAD WO CONon 11-28-2022 CT [...] KAMILLA MILLS Date: 2022-11-28 18:40 Normal [facility] CULTURE BLOODon 11-28-2022 Microscopic examination of blood, culture Culture Observations: NO GROWTH AT 5 DAYS. Normal [facility] Comment on above: Performed By: #### C BC #### [facility] [address] [place] [address] Dr. Hemanth Kerr Microscopic examination of blood, culture Culture Observations: NO GROWTH AT 5 DAYS. Normal [facility] Comment on above: Performed By: #### B [id number] #### [facility] [address] [place] [address] Dr. Hemanth Kerr [facility]15 SARS-CoV-2 (COVID-19) RNA ELMO+probe Ql (Unsp spec) Not detected Normal NOT DETECTED [facility] Comment on above: Result Comment: When [...] for this test is supported by the [employer] of Health and Human Service's declaration that [...] used). Performed By: #### L ACT #### [facility] [address] [place] [address] Dr. Hemanth Kerr DRUG SCREEN RAPID (URINE)on 11-28-2022 AMP Positive Abnormal NEGATIVE [facility] Comment on above: Performed By: #### P REG #### [facility] [address] [place] [address] Dr. Hemanth Kerr BAR Negative Normal NEGATIVE [facility] Comment on above: Performed By: #### P REG #### [facility] [address] [place] [address] Dr. Hemanth Kerr BUP Negative Normal NEGATIVE [facility] Comment on above: Performed By: #### P REG #### [facility] [address] [place] [address] Dr. Hemanth Kerr BZO Negative Normal NEGATIVE [facility] Comment on above: Performed By: #### P REG #### [facility] [address] [place] [address] Dr. Hemanth Kerr YOLANDA Negative Normal NEGATIVE [facility] Comment on above: Performed By: #### P REG #### [facility] [address] [place] [address] Dr. Hemanth Kerr CUT-OFFS SEE BELOW Normal [facility] Comment on above: Result Comment: AMP [...] ng/mL Performed By: #### P REG #### [facility] [address] [place] [address] Dr. Hemanth Kerr DRUG CUT HEADER DRUG CLASS TEST SYSTEM CUT-OFF CONCENTRATIONS ARE FOLLOWS: Normal [facility] Comment on above: Performed By: #### P REG #### [facility] [address] [place] [address] Dr. Hemanth Kerr mAMP Positive Abnormal NEGATIVE [facility] Comment on above: Performed By: #### P REG #### [facility] [address] [place] [address] Dr. Hemanth Kerr MTD Negative Normal NEGATIVE [facility] Comment on above: Performed By: #### P REG #### [facility] [address] [place] [address] Dr. Hemanth Kerr OPI Negative Normal NEGATIVE [facility] Comment on above: Performed By: #### P REG #### [facility] [address] [place] [address] Dr. Hemanth Kerr OXY Negative Normal NEGATIVE [facility] Comment on above: Performed By: #### P REG #### [facility] [address] [place] [address] Dr. Hemanth Kerr PCP Negative Normal NEGATIVE [facility] Comment on above: Performed By: #### P REG #### [facility] [address] [place] [address] Dr. Hemanth Kerr PPX Negative Normal NEGATIVE [facility] Comment on above: Performed By: #### P REG #### [facility] [address] [place] [address] Dr. Hemanth Kerr TCA Negative Normal NEGATIVE [facility] Comment on above: Performed By: #### P REG #### [facility] [address] [place] [address] Dr. Hemanth Kerr THC Negative Normal NEGATIVE [facility] Comment on above: Performed By: #### P REG #### [facility] [address] [place] [address] Dr. Hemanth Kerr ER URINE PROFILEon 3 Bilirubin Ql (U) Negative Normal NEGATIVE [facility] Comment on above: Performed By: #### P REG #### [facility] [address] [place] [address] Dr. Hemanth Kerr Clarity (U) CLEAR Normal CLEAR [facility] Comment on above: Performed By: #### P REG #### [facility] [address] [place] [address] Dr. Hemanth Kerr Color (U) LT. YELLOW Normal YELLOW [facility] Comment on above: Performed By: #### P REG #### [facility] [address] [place] [address] Dr. Hemanth Kerr ERUAHD A micrscopic examination will be performed if indicated. Normal [facility] Comment on above: Performed By: #### P REG #### [facility] [address] [place] [address] Dr. Hemanth Kerr Glucose Ql (U) Negative Normal NEGATIVE [facility] Comment on above: Performed By: #### P REG #### [facility] [address] [place] [address] Dr. Hemanth Kerr Hemoglobin Ql (U) Negative Normal NEGATIVE [facility] Comment on above: Performed By: #### P REG #### [facility] [address] [place] [address] Dr. Hemanth Kerr Ketones Ql (U) Negative Normal NEGATIVE [facility] Comment on above: Performed By: #### P REG #### [facility] [address] [place] [address] Dr. Hemanth Kerr LEUKOCYTES Negative Normal NEGATIVE [facility] Comment on above: Performed By: #### P REG #### [facility] [address] [place] [address] Dr. Hemanth Kerr Nitrite Ql (U) Positive Abnormal NEGATIVE [facility] Comment on above: Performed By: #### P REG #### [facility] [address] [place] [address] Dr. Hemanth Kerr pH (U) 7.5 [pH] Normal 5-9 [facility] Comment on above: Performed By: #### P REG #### [facility] [address] [place] [address] Dr. Hemanth Kerr SPEC GRAVITY 1.020 Normal 1.005-<=1.025 [facility] Comment on above: Performed By: #### P REG #### [facility] [address] [place] [address] Dr. Hemanth Kerr UA PROTEIN TRACE Normal NEGATIVE/ TRACE [facility] Comment on above: Performed By: #### P REG #### [facility] [address] [place] [address] Dr. Hemanth Kerr UR MICRO IND INDICATED Normal [facility] Comment on above: Performed By: #### P REG #### [facility] [address] [place] [address] Dr. Hemanth Kerr Urobilinogen Qn (U) 1.0 {Jose'U}/dL Normal 0.2 - 1. 0 [facility] Comment on above: Performed By: #### P REG #### [facility] [address] [place] [address] Dr. Hemanth Kerr ETHANOL (BLD ALC)on 11-29-19 ALC NOTE NOTE: 80 mg/dl is th e legal limit for a blood alcohol level Normal [facility] Comment on above: Performed By: #### C MP #### [facility] [address] [place] [address] Dr. Hemanth Kerr Ethanol [Mass/Vol] mg/dL Normal [facility] Comment on above: Performed By: #### C MP #### [facility] [address] [place] [address] Dr. Hemanth Kerr LACTATE/LACTIC ACIDon 2022 Lactate [Moles/Vol] 0.7 mmol/L Normal 0.4-2.0 [facility] [facility] Comment on above: Performed By: #### L ACT #### [facility] [address] [address] [address] Hemanth Kerr Lactate [Moles/Vol] 9.0 mmol/L Critically high 0.4-2.0 [facility] Comment on above: Performed By: #### L ACT #### [facility] [address] [address] [address] Hemanth Kerr PH VENOUS BLOODon 11-28-2022 PCO2 VENOUS 36.6 mmHg Critically low 40.0-52.0 [facility] Comment on above: Performed By: #### P HVEN #### [facility] [address] [place] [address] Dr. Hemanth Kerr pH VENOUS 7.354 Normal 7.330-7.430 [facility] Comment on above: Performed By: #### P HVEN #### [facility] [address] [address] [address] Hemanth Kerr POINT OF CARE GLUCOSEon 11-15 Glucose [Mass/Vol] 127 mg/dL Critically high 74-106 [facility] Comment on above: Performed By: #### C BC #### [facility] [address] [place] [address] Dr. Hemanth Kerr PREG HCG QUALon 11-28-2022 , QUAL Negative Normal NEGATIVE [facility] Comment on above: Performed By: #### P REG #### [facility] [address] [place] [address] Dr. Hemanth Kerr PROF 14(COMP METB)on 023 Albumin [Mass/Vol] 3.7 g/dL Normal 3.4-5.0 [facility] Comment on above: Performed By: #### L ACT #### [facility] [address] [place] [address] Dr. Hemanth Kerr Albumin/Globulin [Mass ratio] 1.3 {ratio} Normal [facility] Comment on above: Performed By: #### L ACT #### [facility] [address] [address] [address] Hemanth Kerr ALP [Catalytic activity/Vol] 72 U/L Normal 46-116 [facility] Comment on above: Performed By: #### L ACT #### [facility] [address] [address] [address] Hemanth Kerr ALT [Catalytic activity/Vol] 42 U/L Normal 14-59 [facility] Comment on above: Performed By: #### L ACT #### [facility] [address] [address] [address] Hemanth Kerr Anion gap [Moles/Vol] 16.3 mmol/L Normal [facility] Comment on above: Performed By: #### L ACT #### [facility] [address] [place] [address] Dr. Hemanth Kerr AST [Catalytic activity/Vol] 45 U/L Critically high 15-37 [facility] Comment on above: Performed By: #### L ACT #### [facility] [address] [place] [address] Dr. Hemanth Kerr Bilirubin [Mass/Vol] 0.4 mg/dL Normal 0.2-1.0 [facility] Comment on above: Performed By: #### L ACT #### [facility] [address] [place] [address] Dr. Hemanth Kerr Calcium [Mass/Vol] 8.8 mg/dL Normal 8.5-10.1 [facility] Comment on above: Performed By: #### L ACT #### [facility] [address] [address] [address] Hemanth Kerr Chloride [Moles/Vol] 107 mmol/L Normal 98-107 [facility] Comment on above: Performed By: #### L ACT #### [facility] [address] [place] [address] Dr. Hemanth Kerr CO2 [Moles/Vol] 21.8 mmol/L Normal 21.0-32.0 [facility] Comment on above: Performed By: #### L ACT #### [facility] [id number] Hemanth Kerr Creatinine [Mass/Vol] 1.32 mg/dL Critically high 0.55-1.02 [facility] Comment on above: Performed By: #### L ACT #### [facility] [address] [address] [address] Hemanth Kerr EGFR-AF MALTESE 58 mL/min/1.73m2 Critically low >=60 [facility] Comment on above: Performed By: #### L ACT #### [facility] [address] [address] [address] Hemanth Kerr EGFR-NON AF MALTESE 48 mL/min/1.73m2 Critically low >=60 [facility] Comment on above: Performed By: #### L ACT #### [facility] [address] [address] [address] Hemanth Kerr Globulin (S) [Mass/Vol] 2.9 g/dL Normal [facility] Comment on above: Performed By: #### L ACT #### [facility] [address] [address] [address] Hemanth Kerr Glucose [Mass/Vol] 143 mg/dL Critically high 74-106 [facility] Comment on above: Performed By: #### L ACT #### [facility] [address] [address] [address] Hemanth Kerr Potassium [Moles/Vol] 3.1 mmol/L Critically low 3.5-5.1 [facility] Comment on above: Performed By: #### L ACT #### [facility] [address] [address] [address] Hemanth Kerr Protein [Mass/Vol] 6.6 g/dL Normal 6.4-8.2 [facility] Comment on above: Performed By: #### L ACT #### [facility] [id number] Hemanth Kerr Sodium [Moles/Vol] 142 mmol/L Normal 136-145 [facility] Comment on above: Performed By: #### L ACT #### [facility] [address] [place] [address] Dr. Hemanth Kerr Urea nitrogen [Mass/Vol] 17.0 mg/dL Normal 7.0-18.0 [facility] Comment on above: Performed By: #### L ACT #### [facility] [address] [place] [address] Dr. Hemanth Kerr Urea nitrogen/Creatinine [Mass ratio] 12.9 mg/mg Normal [facility] Comment on above: Performed By: #### L ACT #### [facility] [address] [place] [address] Dr. Hemanth Kerr PROTIMEon 11-28-2022 INR Coag (PPP) [Relative time] 0.97 {INR} Normal [facility] Comment on above: Performed By: #### P T, PTT #### [facility] [address] [place] [address] Dr. Hemanth Kerr INR GUIDELINES SEE BELOW Normal [facility] Comment on above: Result Comment: CHAN RED INR: 2.0 - 3.0 CONDITIONS NOT LISTED BELOW 2.5 - 3.5 FOR PROSTHETIC HEART VALVE REPLACEMENT 2.5 - 3.5 RECURRENT THROMBOSIS Performed By: #### P T, PTT #### [facility] [address] [place] [address] Dr. Hemanth Kerr PT Coag (PPP) [Time] 10.3 s Normal 9.0-11.6 [facility] Comment on above: Performed By: #### P T, PTT #### [facility] [address] [place] [address] Dr. Hemanth Kerr PTTon 11-28-2022 aPTT Coag (Bld) [Time] 25.4 s Normal 22.3-36.2 [facility] Comment on above: Performed By: #### P T, PTT #### [facility] [address] [place] [address] Dr. Hemanth eKrr SALICYLATEon 11-28-2022 SALICYLATE <2.8 Normal <=19.9 [facility] Comment on above: Performed By: #### C MP #### [facility] [address] [place] [address] Dr. Hemanth Kerr TROPONIN, HIGH SENSITIVITYon 11-28-2022 HSTROP 4.2 pg/mL Normal 4.0-51.3 [facility] Comment on above: Result Comment: CUT- OFF POINTS HAVE BEEN ESTABLISHED BASED ON THE FOURTH UNIVERSAL DEFINITIONS OF MYOCARDIAL INFARCTION. THE UPPER REFERENCE LIMIT (URL) OF TROPONIN, DEFINED THE 99TH PERCENTILE OF cTnI DISTRIBUTION IN A REFERENCE POPULATION, HAS BEEN CONFIRMED THE DECISION THRESHOLD FOR [place] DIAGNOSIS. Performed By: #### C MP #### [facility] [address] [place] [address] Dr. Hemanth Kerr TSHon 11-28-2022 TSH 3.476 uIU/mL Normal 0.358-3.740 [facility] Comment on above: Performed By: #### L ACT #### [facility] [address] [place] [address] Dr. Hemanth Kerr URINE MICROSCOPIC ONLYon BACTERIA LARGE Abnormal NONE SEEN [facility] Comment on above: Performed By: #### P REG #### [facility] [address] [place] [address] Dr. Hemanth Kerr Bacteria identified Cx Nom (U) INDICATED Normal [facility] Comment on above: Performed By: #### P REG #### [facility] [address] [place] [address] Dr. Hemanth Kerr CAST SEEN Abnormal NONE SEEN [facility] Comment on above: Performed By: #### P REG #### [facility] [address] [place] [address] Dr. Hemanth Kerr COARSE GRANULAR CAST RARE Normal [facility] Comment on above: Performed By: #### P REG #### [facility] [address] [place] [address] Dr. Hemanth Kerr Crystals LM Nom (Urine sed) NONE SEEN Normal NONE SEEN [facility] Comment on above: Performed By: #### P REG #### [facility] [address] [place] [address] Dr. Hemanth Kerr Epithelial cells LM Ql (Urine sed) RARE Normal NONE SEEN /RARE [facility] Comment on above: Performed By: #### P REG #### [facility] [address] [address] [address] Hemanth Krer MUCOUS NONE SEEN Normal NONE SEEN [facility] Comment on above: Performed By: #### P REG #### [facility] [address] [address] [address] Hemanth Kerr RBC 0-2 Normal 0-2 [facility] Comment on above: Performed By: #### P REG #### [facility] [address] [place] [address] Dr. Hemanth Kerr WBC 2-5 Abnormal NONE SEEN [facility] Comment on above: Performed By: #### P REG #### [facility] [address] [address] [address] Hemanth Kerr XR CHEST 1 Von [...] by: KAMILLA MILLS Date: 2022-11-28 17:39 Normal [facility] CULTURE URINEon 10-13-2022 CULTURE [...] Trimethoprim/Sulfamet hoxazole >=320 R F Normal [facility] Comment on above: Performed By: #### U RCX #### [facility] [address] [address] [address] Hemanth Kerr CBC AUTO DIFFon 10-11-2022 BASO # 0.0 103/ul Normal 0.0-0.1 [facility] Comment on above: Performed By: #### C BC #### [facility] [address] [address] [address] Hemanth Kerr Basophils/100 WBC (Bld) 0.3 % Normal 0.2-2.0 [facility] Comment on above: Performed By: #### C BC #### [facility] [address] [place] [address] Dr. Hemanth Kerr EO # 0.0 103/ul Normal 0.0-0.7 [facility] Comment on above: Performed By: #### C BC #### [facility] [address] [place] [address] Dr. Hemanth Kerr Eosinophils/100 WBC (Bld) 0.4 % Critically low 0.9-7.0 [facility] Comment on above: Performed By: #### C BC #### [facility] [address] [place] [address] Dr. Hemanth Kerr Erythrocyte distribution width (RBC) [Ratio] 12.2 % Normal 11.0-15.0 [facility] Comment on above: Performed By: #### C BC #### [facility] [address] [place] [address] Dr. Hemanth Kerr Hematocrit (Bld) [Volume fraction] 38.6 % Normal 36.0-48.0 [facility] Comment on above: Performed By: #### C BC #### [facility] [address] [place] [address] Dr. Hemanth Kerr Hemoglobin (Bld) [Mass/Vol] 12.0 g/dL Normal 12.0-16.0 [facility] Comment on above: Performed By: #### C BC #### [facility] [address] [place] [address] Dr. Hemanth Kerr IG # 0.07 10e3/ul Critically high 0.00-0.03 [facility] Comment on above: Performed By: #### C BC #### [facility] [address] [address] [address] Hemanth Kerr IG % 0.7 % Critically high 0.0-0.5 [facility] Comment on above: Performed By: #### C BC #### [facility] [address] [place] [address] Dr. Hemanth Kerr LYMPH # 1.2 103/ul Normal 1.2-3.8 [facility] Comment on above: Performed By: #### C BC #### [facility] [address] [place] [address] Dr. Hemanth Kerr Lymphocytes/100 WBC (Bld) 12.1 % Critically low 20.5-60.0 [facility] Comment on above: Performed By: #### C BC #### [facility] [address] [place] [address] Dr. Hemanth Kerr MANUAL DIFF REQ NO Normal [facility] Comment on above: Performed By: #### C BC #### [facility] [address] [place] [address] Dr. Hemanth Kerr MCH (RBC) [Entitic mass] 28.0 pg Normal 26.7-34.0 [facility] Comment on above: Performed By: #### C BC #### [facility] [address] [place] [address] Dr. Hemanth Kerr MCHC (RBC) [Mass/Vol] 31.1 g/dL Normal 29.9-35.2 [facility] Comment on above: Performed By: #### C BC #### [facility] [address] [place] [address] Dr. Hemanth Kerr MCV (RBC) [Entitic vol] 90.2 fL Normal 81.0-99.0 [facility] Comment on above: Performed By: #### C BC #### [facility] [address] [place] [address] Dr. Hemanth Kerr MONO # 0.7 103/ul Normal 0.3-0.8 [facility] Comment on above: Performed By: #### C BC #### [facility] [address] [address] [address] Hemanth Kerr Monocytes/100 WBC (Bld) 6.9 % Normal 1.7-12.0 [facility] Comment on above: Performed By: #### C BC #### [facility] [address] [address] [address] Hemanth Kerr NEUT # 8.1 103/ul Critically high 1.4-6.5 [facility] Comment on above: Performed By: #### C BC #### [facility] [address] [address] [address] Hemanth Kerr Neutrophils/100 WBC (Bld) 79.6 % Critically high 43.0-75.0 [facility] Comment on above: Performed By: #### C BC #### [facility] [address] [place] [address] Dr. Hemanth Kerr Platelet mean volume (Bld) [Entitic vol] 10.8 fL Normal 9.5-13.5 [facility] Comment on above: Performed By: #### C BC #### [facility] [address] [address] [address] Hemanth Kerr PLT 452 103/ul Critically high 150-450 [facility] Comment on above: Performed By: #### C BC #### [facility] [address] [place] [address] Dr. Hemanth Kerr RBC 4.28 106/ul Normal 4.20-5.40 [facility] Comment on above: Performed By: #### C BC #### [facility] [address] [address] [address] Hemanth Kerr WBC 10.1 103/ul Normal 4.0-11.0 [facility] Comment on above: Performed By: #### C BC #### [facility] [address] [place] [address] ABD/PELVIS WO CONon [...] CHRISTINE SÁNCHEZ Date: 2022-10-11 14:45 Normal [facility] ER URINE PROFILEon 3 Bilirubin Ql (U) Negative Normal NEGATIVE [facility] Comment on above: Performed By: #### L ACT #### [facility] [address] [place] [address] Dr. Hemanth Kerr Clarity (U) CLEAR Normal CLEAR [facility] Comment on above: Performed By: #### L ACT #### [facility] [address] [address] [address] Hemanth Kerr Color (U) LT. YELLOW Normal YELLOW [facility] Comment on above: Performed By: #### L ACT #### [facility] [address] [address] [address] Hemanth Kerr ERUAHD A micrscopic examination will be performed if indicated. Normal [facility] Comment on above: Performed By: #### L ACT #### [facility] [address] [address] [address] Hemanth Kerr Glucose Ql (U) Negative Normal NEGATIVE [facility] Comment on above: Performed By: #### L ACT #### [facility] [address] [address] [address] Hemanth Kerr Hemoglobin Ql (U) LARGE Abnormal NEGATIVE [facility] Comment on above: Performed By: #### L ACT #### [facility] [address] [address] [address] Hemanth Kerr Ketones Ql (U) Negative Normal NEGATIVE [facility] Comment on above: Performed By: #### L ACT #### [facility] [address] [place] [address] Dr. Hemanth Kerr LEUKOCYTES SMALL Abnormal NEGATIVE [facility] Comment on above: Performed By: #### L ACT #### [facility] [address] [place] [address] Dr. Hemanth Kerr Nitrite Ql (U) Negative Normal NEGATIVE [facility] Comment on above: Performed By: #### L ACT #### [facility] [address] [address] [address] Hemanth Kerr pH (U) 6.5 [pH] Normal 5-9 [facility] Comment on above: Performed By: #### L ACT #### [facility] [address] [address] [address] Hemanth Kerr Protein (U) [Mass/Vol] 30 mg/dL Abnormal NEGATIVE/ TRACE [facility] Comment on above: Performed By: #### L ACT #### [facility] [address] [place] [address] Dr. Hemanth Kerr SPEC GRAVITY <=1.005 Abnormal 1.005-<=1.025 [facility] Comment on above: Performed By: #### L ACT #### [facility] [address] [address] [address] Hemanth Kerr UR MICRO IND INDICATED Normal [facility] Comment on above: Performed By: #### L ACT #### [facility] [address] [address] [address] Hemanth Kerr Urobilinogen Qn (U) 1.0 {Jose'U}/dL Normal 0.2 - 1. 0 [facility] Comment on above: Performed By: #### L ACT #### [facility] [address] [address] [address] Hemanth Kerr PREG HCG QUALon 10-11-2022 , QUAL Negative Normal NEGATIVE [facility] Comment on above: Performed By: #### P REG #### [facility] [address] [address] [address] Hemanth Kerr PROF CHEM 8 (BAS METB)on Anion gap [Moles/Vol] 9.4 mmol/L Normal [facility] Comment on above: Performed By: #### L ACT #### [facility] [address] [address] [address] Hemanth Kerr Calcium [Mass/Vol] 8.8 mg/dL Normal 8.5-10.1 [facility] Comment on above: Performed By: #### L ACT #### [facility] [address] [address] [address] Hemanth Kerr Chloride [Moles/Vol] 97 mmol/L Critically low 98-107 [facility] Comment on above: Performed By: #### L ACT #### [facility] [address] [address] [address] Hemanth Kerr CO2 [Moles/Vol] 32.4 mmol/L Critically high 21.0-32.0 [facility] Comment on above: Performed By: #### L ACT #### [facility] [address] [address] [address] Hmeanth Kerr Creatinine [Mass/Vol] 0.65 mg/dL Normal 0.55-1.02 [facility] Comment on above: Performed By: #### L ACT #### [facility] [address] [address] [address] Hemanth Kerr EGFR-AF MALTESE >60 Normal >=60 [facility] Comment on above: Performed By: #### L ACT #### [facility] [address] [place] [address] Dr. Hemanth Kerr EGFR-NON AF MALTESE >60 Normal >=60 [facility] Comment on above: Performed By: #### L ACT #### [facility] [address] [address] [address] Hemanth Kerr Glucose [Mass/Vol] 117 mg/dL Critically high 74-106 [facility] Comment on above: Performed By: #### L ACT #### [facility] [address] [place] [address] Dr. Hemanth Kerr Potassium [Moles/Vol] 2.8 mmol/L Critically low 3.5-5.1 [facility] Comment on above: Performed By: #### L ACT #### [facility] [address] [place] [address] Dr. Hemanth Kerr Sodium [Moles/Vol] 135 mmol/L Critically low 136-145 [facility] Comment on above: Performed By: #### L ACT #### [facility] [address] [place] [address] Dr. Hemanth Kerr Urea nitrogen [Mass/Vol] 8.0 mg/dL Normal 7.0-18.0 [facility] Comment on above: Performed By: #### L ACT #### [facility] [address] [place] [address] Dr. Hemanth Kerr Urea nitrogen/Creatinine [Mass ratio] 12.3 mg/mg Normal [facility] Comment on above: Performed By: #### L ACT #### [facility] [address] [place] [address] Dr. Hemanth Kerr URINE MICROSCOPIC ONLYon BACTERIA SMALL Abnormal NONE SEEN [facility] Comment on above: Performed By: #### L ACT #### [facility] [address] [place] [address] Dr. Hemanth Kerr Bacteria identified Cx Nom (U) INDICATED Normal [facility] Comment on above: Performed By: #### L ACT #### [facility] [address] [place] [address] Dr. Hemanth Kerr CAST NONE SEEN Normal NONE SEEN [facility] Comment on above: Performed By: #### L ACT #### [facility] [address] [place] [address] Dr. Hemanth Kerr Crystals LM Nom (Urine sed) NONE SEEN Normal NONE SEEN [facility] Comment on above: Performed By: #### L ACT #### [facility] [address] [place] [address] Dr. Hemanth Kerr Epithelial cells LM Ql (Urine sed) FEW Abnormal NONE SEEN /RARE [facility] Comment on above: Performed By: #### L ACT #### [facility] [address] [place] [address] Dr. Hemanth Kerr MUCOUS NONE SEEN Normal NONE SEEN [facility] Comment on above: Performed By: #### L ACT #### [facility] [address] [place] [address] Dr. Hemanth Kerr RBC 0-2 Normal 0-2 [facility] Comment on above: Performed By: #### L ACT #### [facility] [address] [place] [address] Dr. Hemanth Kerr WBC 10-20 Abnormal NONE SEEN [facility] Comment on above: Performed By: #### L ACT #### [facility] [address] [place] [address] Dr. Hemanth Kerr PREG QUANT HCGon 09-12-2022 HCG QUANT 66 mIU/mL Normal [facility] Comment on above: Performed By: #### C MP #### [facility] [address] [place] [address] Dr. Hemanth Kerr HCG RANGE SEE BELOW Normal [facility] Comment on above: Result Comment: 5-50 0.2-1 WEEK 50-500 1-2 WEEKS 100-5,000 2-3 WEEKS 500-10,000 3-4 WEEKS 1,000-50,000 4-5 WEEKS 10,000-100,000 5-6 WEEKS 15,000-200,000 6-8 WEEKS 10,000-100,000 2-3 MONTHS Performed By: #### C MP #### [facility] [address] [place] [address] Dr. Hemanth Kerr CBC AUTO DIFFon 11-30-2022 BASO # 0.0 103/ul Normal 0.0-0.1 [facility] Comment on above: Performed By: #### L ACT #### [facility] [address] [address] [address] Hemanth Kerr Basophils/100 WBC (Bld) 0.6 % Normal 0.2-2.0 [facility] Comment on above: Performed By: #### L ACT #### [facility] [address] [address] [address] Hemanth Kerr EO # 0.1 103/ul Normal 0.0-0.7 [facility] Comment on above: Performed By: #### L ACT #### [facility] [address] [place] [address] Dr. Hemanth Kerr Eosinophils/100 WBC (Bld) 1.3 % Normal 0.9-7.0 [facility] Comment on above: Performed By: #### L ACT #### [facility] [address] [place] [address] Dr. Hemanth Kerr Erythrocyte distribution width (RBC) [Ratio] 12.0 % Normal 11.0-15.0 [facility] Comment on above: Performed By: #### L ACT #### [facility] [address] [place] [address] Dr. Hemanth Kerr Hematocrit (Bld) [Volume fraction] 35.6 % Critically low 36.0-48.0 [facility] Comment on above: Performed By: #### L ACT #### [facility] [address] [place] [address] Dr. Hemanth Kerr Hemoglobin (Bld) [Mass/Vol] 12.4 g/dL Normal 12.0-16.0 [facility] Comment on above: Performed By: #### L ACT #### [facility] [address] [place] [address] Dr. Hemanth Kerr IG # 0.02 10e3/ul Normal 0.00-0.03 [facility] Comment on above: Performed By: #### L ACT #### [facility] [address] [place] [address] Dr. Hemanth Kerr IG % 0.3 % Normal 0.0-0.5 [facility] Comment on above: Performed By: #### L ACT #### [facility] [address] [place] [address] Dr. Hemanth Kerr LYMPH # 1.9 103/ul Normal 1.2-3.8 [facility] Comment on above: Performed By: #### L ACT #### [facility] [address] [place] [address] Dr. Hemanth Kerr Lymphocytes/100 WBC (Bld) 27.5 % Normal 20.5-60.0 [facility] Comment on above: Performed By: #### L ACT #### [facility] [address] [place] [address] Dr. Hemanth Kerr MANUAL DIFF REQ NO Normal [facility] Comment on above: Performed By: #### L ACT #### [facility] [address] [place] [address] Dr. Hemanth Kerr MCH (RBC) [Entitic mass] 29.6 pg Normal 26.7-34.0 [facility] Comment on above: Performed By: #### L ACT #### [facility] [address] [place] [address] Dr. Hemanth Kerr MCHC (RBC) [Mass/Vol] 34.8 g/dL Normal 29.9-35.2 [facility] Comment on above: Performed By: #### L ACT #### [facility] [address] [place] [address] Dr. Hemanth Kerr MCV (RBC) [Entitic vol] 85.0 fL Normal 81.0-99.0 [facility] Comment on above: Performed By: #### L ACT #### [facility] [address] [place] [address] Dr. Hemanth Kerr MONO # 0.4 103/ul Normal 0.3-0.8 [facility] Comment on above: Performed By: #### L ACT #### [facility] [address] [place] [address] Dr. Hemanth Kerr Monocytes/100 WBC (Bld) 6.3 % Normal 1.7-12.0 [facility] Comment on above: Performed By: #### L ACT #### [facility] [address] [place] [address] Dr. Hemanth Kerr NEUT # 4.5 103/ul Normal 1.4-6.5 [facility] Comment on above: Performed By: #### L ACT #### [facility] [address] [place] [address] Dr. Hemanth Kerr Neutrophils/100 WBC (Bld) 64.0 % Normal 43.0-75.0 [facility] Comment on above: Performed By: #### L ACT #### [facility] [address] [place] [address] Dr. Hemanth Kerr Platelet mean volume (Bld) [Entitic vol] 10.6 fL Normal 9.5-13.5 [facility] Comment on above: Performed By: #### L ACT #### [facility] [address] [place] [address] Dr. Hemanth Kerr PLT 247 103/ul Normal 150-450 [facility] Comment on above: Performed By: #### L ACT #### [facility] [address] [place] [address] Dr. Hemanth Kerr RBC 4.19 106/ul Critically low 4.20-5.40 [facility] Comment on above: Performed By: #### L ACT #### [facility] [address] [place] [address] Dr. Hemanth Kerr WBC 7.0 103/ul Normal 4.0-11.0 [facility] Comment on above: Performed By: #### L ACT #### [facility] [address] [place] [address] Dr. Hemanth Kerr Covid-19 PCR ([facility])on 07-20 SARS-CoV-2 (COVID-19) RNA ELMO+probe Ql (Unsp spec) Not detected Normal NOT DETECTED [facility] Comment on above: Result Comment: This test is not yet approved or cleared by the [place] FDA. When there are no FDA-approved or cleared tests available, and other criteria are met, FDA can make tests available under an emergency access mechanism called an Emergency Use Authorization (EUA). The EUA for this test is supported by the [employer] Founder of Health and Human Service's (HHS's) declaration [...] SARS-CoV-2. Performed By: #### C MP #### [facility] [address] [place] [address] Dr. Hemanth Kerr PREG QUANT HCGon 08-16-2022 HCG QUANT 49589 mIU/mL Normal [facility] Comment on above: Performed By: #### P REG #### [facility] [address] [place] [address] Dr. Hemanth Kerr HCG RANGE SEE BELOW Normal [facility] Comment on above: Result Comment: 5-50 0.2-1 WEEK 50-500 1-2 WEEKS 100-5,000 2-3 WEEKS 500-10,000 3-4 WEEKS 1,000-50,000 4-5 WEEKS 10,000-100,000 5-6 WEEKS 15,000-200,000 6-8 WEEKS 10,000-100,000 2-3 MONTHS Performed By: #### P REG #### [facility] [address] [place] [address] Dr. Hemanth Kerr PREG QUANT HCGon 08-14-2022 HCG QUANT 54438 mIU/mL Normal [facility] Comment on above: Performed By: #### P REG #### [facility] [address] [place] [address] Dr. Hemanth Kerr HCG RANGE SEE BELOW Normal [facility] Comment on above: Result Comment: 5-50 0.2-1 WEEK 50-500 1-2 WEEKS 100-5,000 2-3 WEEKS 500-10,000 3-4 WEEKS 1,000-50,000 4-5 WEEKS 10,000-100,000 5-6 WEEKS 15,000-200,000 6-8 WEEKS 10,000-100,000 2-3 MONTHS Performed By: #### P REG #### [facility] [address] [address] [address] Hemanth Kerr US PREG TVon 08-14-2022 [...] by: CHRISTINE SÁNCHEZ Date: 2022-08-14 16:22 Normal [facility] US PREG TVon 07-27-2022 US PREG TV [...] by: CHRISTINE SÁNCHEZ Date: 2022-07-27 17:04 Normal [facility] XR CHEST 1 Von 07-09-2022 XR CHEST [...] WEBB Date: 2022-07-09 12:06 Normal [facility] 12-12-2021 [facility] Telephone ([email or web address]) NOE ERVIN ([id number]) 1995 F Date Time Provider Department 12/12/21 KING SUAZO During your visit today, we recorded the following information about you: Angelia Almazan 12/12/2021 11:16 AM Signed Pleases sign pending new cbc order. Thanks, Angelia Almazan MA Allergies As of Date: 12/12/2021 (No Known Allergies) Date Reviewed: 12/12/2021 Reviewed by: Jasmin Silverio APRN.[facility] - Fully Assessed Reason for Visit: Lab Orders [168] Primary Visit Diagnosis:Iron deficiency anemia, unspecified iron deficiency anemia type [D50.9] Order(s):CBC + DIFF [SQCBCDIF] Order #: [id number] FUTURE Prescriptions as of 12/12/2021 - gabapentin [...] 12/12/21 Normal [facility] 11-10-2021 [facility] Telephone ([email or web address]) NOE ERVIN ([id number]) 1995 F Date Time Provider Department 11/10/21 [...] B12 is slightly low. Options would be [id number] B12 tablets 2 mg daily or start a monthly injection. Thanks, MELANY De La O RN 11/10/2021 3:40 PM Signed Informed pt of Dr Suazo's message. Pt verbalized understanding and states [facility] told her only 2 doses [...] by JENNYFER DE LA O on 11/10/21 [facility] CNOVSPon 11-08-2021 CNOVSP Visit (SP) Office (HEMASA) NOE ERVIN ([id number]) 1995 F Date Time Provider Department 11/08/21 [...] shortness of breath, and is seen at [facility]. Labs revealed a hemoglobin of [...] r (more content not included)... Normal [facility] Comp Metabolic Panelon 11-08 Albumin [Mass/Vol] 3.6 g/dL Low 3.9-4.9 [facility] Comment on above: Performed By: #### S ERFOL, IRON, B12, FERR #### [facility] [address] [place], [place] [address] ALP [Catalytic activity/Vol] 79 U/L Normal 34-123 [facility] Comment on above: Performed By: #### S ERFOL, IRON, B12, FERR #### [facility] [address] [place], [place] [address] ALT [Catalytic activity/Vol] 8 U/L Normal 7-38 [facility] Comment on above: Performed By: #### S ERFOL, IRON, B12, FERR #### [facility] [address] [place], [place] [address] Anion gap [Moles/Vol] 9 mmol/L Normal 9-18 [facility] Comment on above: Performed By: #### S ERFOL, IRON, B12, FERR #### [facility] [address] [place], [place] [address] AST [Catalytic activity/Vol] 13 U/L Normal 13-35 [facility] Comment on above: Performed By: #### S ERFOL, IRON, B12, FERR #### [address] [place] [address] Bilirubin [Mass/Vol] 0.2 mg/dL Normal 0.2-1.3 [facility] Comment on above: Performed By: #### S ERFOL, IRON, B12, FERR #### [place] [address] Calcium [Mass/Vol] 9.3 mg/dL Normal 8.5-10.2 [facility] Comment on above: Performed By: #### S ERFOL, IRON, B12, FERR #### [place] [address] Chloride [Moles/Vol] 102 mmol/L Normal 97-105 [facility] Comment on above: Performed By: #### S ERFOL, IRON, B12, FERR #### [place] [address] CO2 [Moles/Vol] 23 mmol/L Normal 22-30 [facility] Comment on above: Performed By: #### S ERFOL, IRON, B12, FERR #### [place] [address] Creatinine [Mass/Vol] 0.55 mg/dL Low 0.58-0.96 [facility] Comment on above: Performed By: #### S ERFOL, IRON, B12, FERR #### [place] [address] eGFR- Amer. >60 Normal [facility] Comment on above: Performed By: #### S ERFOL, IRON, B12, FERR #### [place] [address] eGFR-All Other Races >60 Normal [facility] Comment on above: Result Comment: eGFR (Estimated [...] #### S ERFOL, IRON, B12, FERR #### [facility] [address] [id number] Glucose [Mass/Vol] 96 mg/dL Normal 74-99 [facility] Comment on above: Result Comment: The [place] Diabetes [employer] (ADA) provides guidance for cutoff [...] Standards of Medical Care in Diabetes 2016, [place] [employer]. Diabetes Care. 2016.39(Suppl 1). Performed By: #### S ERFOL, IRON, B12, FERR #### [facility] [address] [place], [place] [address] Potassium [Moles/Vol] 3.3 mmol/L Low 3.7-5.1 [facility] Comment on above: Performed By: #### S ERFOL, IRON, B12, FERR #### [facility] [address] [place], [place] [address] Protein [Mass/Vol] 6.3 g/dL Normal 6.3-8.0 [facility] Comment on above: Performed By: #### S ERFOL, IRON, B12, FERR #### [address] [address] Sodium [Moles/Vol] 134 mmol/L Low 136-144 [facility] Comment on above: Performed By: #### S ERFOL, IRON, B12, FERR #### [place] [address] Urea nitrogen [Mass/Vol] 4 mg/dL Low 7-21 [facility] Comment on above: Performed By: #### S ERFOL, IRON, B12, FERR #### [place] [address] Ferritinon 11-08-2021 Ferritin [Mass/Vol] 203.0 ng/mL Normal 14.7-205.1 [facility] Comment on above: Performed By: #### S ERFOL, IRON, B12, FERR #### [address] [address] Folate, Serumon 11-08-2021 Folate [Mass/Vol] 8.5 ng/mL Normal >4.7 [facility] Comment on above: Performed By: #### S ERFOL, IRON, B12, FERR #### [address] [place], [place] [address] Iron and TIBCon 11-08-2021 Iron [Mass/Vol] 93 ug/dL Normal 41-186 [facility] Comment on above: Performed By: #### S ERFOL, IRON, B12, FERR #### [address] [address] TIBC 407 ug/dL High 232-386 [facility] Comment on above: Performed By: #### S ERFOL, IRON, B12, FERR #### [facility] [address] [place], [place] [address] Transferrin Saturatn 23 % Normal 15-57 [facility] Comment on above: Performed By: #### S ERFOL, IRON, B12, FERR #### [facility] [address] [place], [place] [address] Remote CBCDIF (for [facility] use o nly)on 11-08-2021 Abs Baso <0.03 Normal <0.11 [facility] Abs Harvey 0.57 k/uL Normal <0.87 [facility] Abs Neut 4.67 k/uL Normal 1.45-7.50 [facility] Absolute nRBC <0.01 Normal <0.01 [facility] Basophils/100 WBC (Bld) 0.3 % Normal [facility] DTYPE Auto Diff Normal [facility] Eosinophils (Bld) [#/Vol] 0.05 10*3/uL Normal <0.46 [facility] Eosinophils/100 WBC (Bld) 0.8 % Normal [facility] Erythrocyte distribution width (RBC) [Ratio] 29.9 % High 11.5-15.0 [facility] Hematocrit (Bld) [Volume fraction] 32.6 % Low 36.0-46.0 [facility] Hemoglobin (Bld) [Mass/Vol] 10.1 g/dL Low 11.5-15.5 [facility] Lymphocytes (Bld) [#/Vol] 1.25 10*3/uL Normal 1.00-4.00 [facility] Lymphocytes/100 WBC (Bld) 19.1 % Normal [facility] MCH 25.1 pG Low 26.0-34.0 [facility] MCHC (RBC) [Mass/Vol] 31.0 g/dL Normal 30.5-36.0 [facility] MCV (RBC) [Entitic vol] 81.1 fL Normal 80.0-100.0 [facility] Monocytes/100 WBC (Bld) 8.7 % Normal [facility] Neutrophils/100 WBC (Bld) 71.1 % Normal [facility] NRBCs 0.0 /100 WBC Normal 0 [facility] Platelet mean volume (Bld) [Entitic vol] 10.3 fL Normal 9.0-12.7 [facility] Platelets (Bld) [#/Vol] 223 10*3/uL Normal 150-400 [facility] Comment on above: Result Comment: Resu lt checked and verified Sample checked for a clot. RBC (Bld) [#/Vol] 4.02 10*6/uL Normal 3.90-5.20 [facility] WBC (Bld) [#/Vol] 6.56 10*3/uL Normal 3.70-11.00 [facility] Reticulocyteon 11-08-2021 Abs Retic 0.140 M/uL High 0.0180-0.1000 [facility] Comment on above: Performed By: #### S ERFOL, IRON, B12, FERR #### [facility] [address] [address] Retic% 3.5 % High 0.4-2.0 [facility] Comment on above: Performed By: #### S ERFOL, IRON, B12, FERR #### [facility] [address] [place], [place] [id number] Vitamin B12on 11-08-2021 Cobalamin (Vitamin B12) [Mass/Vol] 218 pg/mL Low 232-1245 [facility] Comment on above: Performed By: #### S ERFOL, IRON, B12, FERR #### [facility] [address] [address] HCV RNA,Quant,PCRon 04-27-20 HCV RNA,Quant,PCR Specimen Description [...] Report Status FINAL 04/27/2020 Normal [facility] Comment on above: Performed By: #### H IVCMB, PHEP #### [address] [address] Flare Stitcher: Dom Fowler MD #### CP #### [facility] [place] [facility] [address] [place] [address] Flare Stitcher: Shakeel Graham MD [facility] 04-26-2020 Erythrocyte distribution width (RBC) [Ratio] 14.7 % High 11.8-14.4 [facility] Comment on above: Performed By: #### H IVCMB, PHEP #### [address] [address] Flare Stitcher: Dom Fowler MD #### CP #### [facility] [place] [facility] [address] [place] [address] Flare Stitcher: Shakeel Graham MD Hematocrit (Bld) [Volume fraction] 36.0 % Low 36.3-47.1 [facility] Comment on above: Performed By: #### H IVCMB, PHEP #### [address] [address] Flare Stitcher: Dom Fowler MD #### CP #### [facility] [place] [facility] [address] [place] [address] Flare Stitcher: Shakeel Graham MD Hemoglobin (Bld) [Mass/Vol] 10.9 g/dL Low 11.9-15.1 [facility] Comment on above: Performed By: #### H IVCMB, PHEP #### [address] [id number] Flare Stitcher: Dom Fowler MD #### CP #### [facility] [place] [facility] [address] [place] [address] Flare Stitcher: Shakeel Graham MD MCH (RBC) [Entitic mass] 26.2 pg Normal 25.2-33.5 [facility] Comment on above: Performed By: #### H IVCMB, PHEP #### [address] [id number] Flare Stitcher: Dom Fowler MD #### CP #### [facility] [place] [facility] [address] [place] [address] Flare Stitcher: Shakeel Graham MD MCHC (RBC) [Mass/Vol] 30.3 g/dL Normal 28.4-34.8 [facility] Comment on above: Performed By: #### H IVCMB, PHEP #### [address] [id number] Flare Stitcher: Dom Fowler MD #### CP #### [facility] [place] [facility] [address] [place] [id number] Flare Stitcher: Shakeel Graham MD MCV (RBC) [Entitic vol] 86.5 fL Normal 82.6-102.9 [facility] Comment on above: Performed By: #### H IVCMB, PHEP #### [address] [address] Flare Stitcher: Dom Fowler MD #### CP #### [facility] [place] [facility] [address] [place] [id number] Flare Stitcher: Shakeel Graham MD NRBC Automated 0.0 per 100 WBC Normal 0.0 [facility] Comment on above: Performed By: #### H IVCMB, PHEP #### [address] [id number] Flare Stitcher: Dom Fowler MD #### CP #### [facility] [place] [facility] [address] [place] [address] Flare Stitcher: Shakeel Graham MD Platelet mean volume (Bld) [Entitic vol] 10.8 fL Normal 8.1-13.5 [facility] Comment on above: Performed By: #### H IVCMB, PHEP #### [address] [place], [place] [id number] Flare Stitcher: Dom Fowler MD #### CP #### [facility] [place] [facility] [address] [place], [place] [id number] Flare Stitcher: Shakeel Graham MD Platelets (Bld) [#/Vol] 328 10*3/uL Normal 138-453 [facility] Comment on above: Performed By: #### H IVCMB, PHEP #### [address] [id number] Flare Stitcher: Dom Fowler MD #### CP #### [facility] [place] [facility] [address] [place] [address] Flare Stitcher: Shakeel Graham MD RBC (Bld) [#/Vol] 4.16 10*6/uL Normal 3.95-5.11 [facility] Comment on above: Performed By: #### H IVCMB, PHEP #### [address] [id number] Flare Stitcher: Dmo Fowler MD #### CP #### [facility] [place] [facility] [address] [place] [address] Flare Stitcher: Shakeel Graham MD WBC (Bld) [#/Vol] 5.7 10*3/uL Normal 3.5-11.3 [facility] Comment on above: Performed By: #### H IVCMB, PHEP #### [address] [id number] Flare Stitcher: Dom Fowler MD #### CP #### [facility] [place] [facility] [address] [place] [address] Flare Stitcher: Shakeel Graham MD Erythrocyte distribution width (RBC) [Ratio] 14.7 % High 11.8 - 14.4 % [place], [place] Hematocrit (Bld) [Volume fraction] 36.0 % Low 36.3 - 47.1 % [place], [place] Hemoglobin (Bld) [Mass/Vol] 10.9 g/dL Low 11.9 - 15.1 g/dL [place] Interpretation and review of laboratory results Abnormal [place] MCH (RBC) [Entitic mass] 26.2 pg 25.2 - 33.5 pg [place] MCHC (RBC) [Mass/Vol] 30.3 g/dL 28.4 - 34.8 g/dL [place] MCV (RBC) [Entitic vol] 86.5 fL 82.6 - 102.9 fL [place] Platelet mean volume (Bld) [Entitic vol] 10.8 fL 8.1 - 13.5 fL [place], [place] Platelets (Bld) [#/Vol] 328 10*3/uL [place] RBC (Bld) [#/Vol] 4.16 10*6/uL 3.95 - 5.1 1 m/uL [place] WBC (Bld) [#/Vol] 0.0 10*3/uL 0.0 per 100 WBC [place], [place] WBC (Bld) [#/Vol] 5.7 10*3/uL [place] Comp Metabolic Profon 2019 Bilirubin Ql (U) <0.10 Low 0.3-1.2 [facility] Comment on above: Performed By: #### H IVCMB, PHEP #### [facility] [address] [place] [address] Flare Stitcher: Dom Fowler MD #### CP #### [facility] [place] [facility] [address] [place] [address] Flare Stitcher: Shakeel Graham MD (cont.) Normal [facility] Comment on above: Result Comment: Aver age GFR for 20-29 years old: 116 mL/min/1.73sq m Chronic Kidney Disease: <60 mL/min/1.73sq m Kidney failure: <15 mL/min/1.73sq m eGFR calculated using average adult body mass. Additional eGFR calculator available at: http://www.Pic[employer]/multiple_crcl_2011.htm Performed By: #### H IVCMB, PHEP #### [facility] [address] [place] [address] Flare Stitcher: Dmo Fowler MD #### CP #### [facility] [place] [facility] [address] [place] [address] Flare Stitcher: Shakeel Graham MD Albumin [Mass/Vol] 3.4 g/dL Low 3.5-5.2 [facility] Comment on above: Performed By: #### H IVCMB, PHEP #### [address] [address] Flare Stitcher: Dom Fowler MD #### CP #### [facility] [place] [facility] [address] [place] [address] [place] [address] Flare Stitcher: Shakeel Graham MD Albumin/Globulin [Mass ratio] 1.5 {ratio} Normal 1.0-2.5 [facility] Comment on above: Performed By: #### H IVCMB, PHEP #### [address] [address] Flare Stitcher: Dom Fowler MD #### CP #### [facility] [place] [facility] [address] [place] [address] Flare Stitcher: Shakeel Graham MD Alkaline Phos 40 U/L Normal 35-104 [facility] Comment on above: Performed By: #### H IVCMB, PHEP #### [address] [address] Flare Stitcher: Dom Fowler MD #### CP #### [facility] [place] [facility] [address] [place] [id number] Flare Stitcher: Shakeel Graham MD ALT [Catalytic activity/Vol] 12 U/L Normal 5-33 [facility] Comment on above: Performed By: #### H IVCMB, PHEP #### [facility] [address] [place] [address] Flare Stitcher: Dom Fowler MD #### CP #### [facility] [place] [facility] [address] [place] [phone] Flare Stitcher: Shakeel Graham MD Anion gap [Moles/Vol] 9 mmol/L Normal 9-17 [facility] Comment on above: Performed By: #### H IVCMB, PHEP #### [address] [address] Flare Stitcher: Dom Fowler MD #### CP #### [facility] [place] [facility] [address] [place] [id number] Flare Stitcher: Shakeel Graham MD AST [Catalytic activity/Vol] 12 U/L Normal <32 [facility] Comment on above: Performed By: #### H IVCMB, PHEP #### [address] [address] Flare Stitcher: Dom Fowler MD #### CP #### [facility] [place] [facility] [address] [place] [id number] Flare Stitcher: Shakeel Graham MD BUN/CRE Ratio 26 High 9-20 [facility] Comment on above: Performed By: #### H IVCMB, PHEP #### [address] [address] Flare Stitcher: Dom Fowler MD #### CP #### [facility] [place] [facility] [address] [place] [id number] Flare Stitcher: Shakeel Graham MD Calcium [Mass/Vol] 9.3 mg/dL Normal 8.6-10.4 [facility] Comment on above: Performed By: #### H IVCMB, PHEP #### [address] [address] Flare Stitcher: oDm Fowler MD #### CP #### [facility] [place] [facility] [address] [place] [address] [address] [place], [place] [id number] Flare Stitcher: Shakeel Graham MD Chloride [Moles/Vol] 109 mmol/L High 98-107 [facility] Comment on above: Performed By: #### H IVCMB, PHEP #### [address] [address] Flare Stitcher: Dom Fowler MD #### CP #### [address] [place] [id number] Flare Stitcher: Shakeel Graham MD CO2 [Moles/Vol] 26 mmol/L Normal 20-31 [facility] Comment on above: Performed By: #### H IVCMB, PHEP #### [address] [address] Flare Stitcher: Dom Fowler MD #### CP #### [address] [place] [id number] Flare Stitcher: Shakeel Graham MD Creatinine [Mass/Vol] 0.57 mg/dL Normal 0.50-0.90 [facility] Comment on above: Performed By: #### H IVCMB, PHEP #### [address] [address] Flare Stitcher: Dom Fowler MD #### CP #### [facility] [place] [facility] [address] [place] [address] [address]. [place], [place] [id number] Flare Stitcher: Shakeel Graham MD GFR, Amer >60 Normal >60 [facility] Comment on above: Performed By: #### H IVCMB, PHEP #### [address] [address] Flare Stitcher: Dom Fowler MD #### CP #### [facility] [place] [facility] [address] [place], [place] [id number] Flare Stitcher: Shakeel Graham MD GFR,non Amer >60 Normal >60 [facility] Comment on above: Performed By: #### H IVCMB, PHEP #### [address] [address] Flare Stitcher: Dom Fowler MD #### CP #### [address] [place], [place] [id number] Flare Stitcher: Shakeel Graham MD Glucose [Mass/Vol] 92 mg/dL Normal 70-99 [facility] Comment on above: Performed By: #### H IVCMB, PHEP #### [address] [address] Flare Stitcher: Dom Fowler MD #### CP #### [address] [place], [place] [id number] Flare Stitcher: Shakeel Graham MD Potassium [Moles/Vol] 3.8 mmol/L Normal 3.7-5.3 [facility] Comment on above: Performed By: #### H IVCMB, PHEP #### [address] [address] Flare Stitcher: Dom Fowler MD #### CP #### [facility] [place] [facility] [address] [place] [address] Dr[address] [place], [place] [id number] Flare Stitcher: Shakeel Graham MD Protein [Mass/Vol] 5.7 g/dL Low 6.4-8.3 [facility] Comment on above: Performed By: #### H IVCMB, PHEP #### [address] [address] Flare Stitcher: Dom Fowler MD #### CP #### [address] [place] [address] Flare Stitcher: Shakeel Graham MD Sodium [Moles/Vol] 144 mmol/L Normal 135-144 [facility] Comment on above: Performed By: #### H IVCMB, PHEP #### [address] [address] Flare Stitcher: Dom Fowler MD #### CP #### [address] [place] [address] Flare Stitcher: Shakeel Graham MD Staging: Normal [facility] Comment on above: Result Comment: Stag e 1: Some kidney damage normal GFR Stage 2: Mild kidney damage GFR 60-89 Stage 3: Moderate kidney damage GFR 30-59 Stage 4: Severe kidney damage GFR 15-29 Stage 5: Severe kidney damage GFR <15 ESRD - chronic treatment by dialysis or transplant Performed By: #### H IVCMB, PHEP #### [address] [address] Flare Stitcher: Dom Fowler MD #### CP #### [address] [place] [address] Flare Stitcher: Shakeel Graham MD Urea nitrogen [Mass/Vol] 15 mg/dL Normal 6-20 [facility] Comment on above: Performed By: #### H IVCMB, PHEP #### [address] [address] Flare Stitcher: Dom Fowler MD #### CP #### [address] [place] [address] Flare Stitcher: Shakeel Graham MD [facility] 04-26-2020 Albumin [Mass/Vol] 3.4 g/dL Low 3.5 - 5.2 g/dL [place], [place] Albumin/Globulin [Mass ratio] 1.5 {ratio} [place], [place] ALP [Catalytic activity/Vol] 40 U/L 35 - 104 U/L [place] ALT [Catalytic activity/Vol] 12 U/L 5 - 33 U/L [place] Anion gap [Moles/Vol] 9 mmol/L 9 - 17 mmol/L [place] AST [Catalytic activity/Vol] 12 U/L <32 [place] Bilirubin Ql (U) <0.10 Low 0.3 - 1.2 mg/dL [place], [place] Bun/Cre Ratio 26 High [place], [place] Calcium [Mass/Vol] 9.3 mg/dL 8.6 - 10. 4 mg/dL [place] Chloride [Moles/Vol] 109 mmol/L High 98 - 107 mmol/L [place] CO2 [Moles/Vol] 26 mmol/L 20 - 31 mmol/L [place] Creatinine [Mass/Vol] 0.57 mg/dL 0.5 - 0.9 mg/dL [place] GFR >60 >60 mL/min [place], [place] GFR Non- >60 >60 mL/min [place] Glucose [Mass/Vol] 92 mg/dL 70 - 99 mg/dL [place], [place] Interpretation and review of laboratory results Abnormal [place] Potassium [Moles/Vol] 3.8 mmol/L 3.7 - 5.3 mmol/L [place] Protein [Mass/Vol] 5.7 g/dL Low 6.4 - 8.3 g/dL [place], [place] Sodium [Moles/Vol] 144 mmol/L 135 - 144 mmol/L [place] Urea nitrogen [Mass/Vol] 15 mg/dL 6 - 20 mg/dL [place] HCG Qualitative, Serumon hCG Qual Negative NEGATIVE [place] Comment on above: Specimens with hCG l evels near the threshold of the test (25 mIU/mL) may give a negative or indeterminate result. In such cases, another test should be performed with a new specimen in 48-72 hours. If early is suspected clinically in this setting, correlation with quantitative serum b-hCG level is suggested. [facility] has confirmed the use of plasma for this test. This has not been cleared or approved by the U.S. Food and Drug Administration. The FDA has determined that such clearance is not necessary. HCG Screen, Bloodon 04-26-20 20 HCG Qn Negative Normal NEG [facility] Comment on above: Result Comment: Spec imens with hCG levels near the threshold of the test (25 mIU/mL) may give a negative or indeterminate result. In such cases, another test should be performed with a new specimen in 48-72 hours. If early is suspected clinically in this setting, correlation with quantitative serum b-hCG level is suggested. [employer] has confirmed the use of plasma for this test. This has not been cleared or approved by the U.S. Food and Drug Administration. The FDA has determined that such clearance is not necessary. Performed By: #### H IVCMB, PHEP #### [facility] [address] [place], [place] [id number] Flare Stitcher: Dom Fowler MD #### CP #### [address] [place] [address] Flare Stitcher: Shakeel Graham MD HIV Ag/Abon 04-26-2020 HIV Ag/Ab NONREACTIVE Normal NR [facility] Comment on above: Result Comment: No l aboratory evidence of HIV infection. If acute HIV infection is suspected, consider testing for HIV-1 RNA. Performed By: #### H IVCMB, PHEP #### [facility] [address] [place] [address] Flare Stitcher: Dom Fowler MD #### CP #### [facility] [address] [place] [address] Flare Stitcher: Shakeel Graham MD HIV Screenon 04-26-2020 HIV Ag/Ab NONREACTIVE NONREACTIVE [place] Comment on above: No laboratory eviden ce of HIV infection. If acute HIV infection is suspected, consider testing for HIV-1 RNA. [facility]atitis [facility] 04-26 Hep A Ab,IgM NONREACTIVE Normal NR [facility] Comment on above: Performed By: #### H IVCMB, PHEP #### [facility] [address] [place] [address] Flare Stitcher: Dom Fowler MD #### CP #### [facility] [address] [place] [address] [place] [address] Flare Stitcher: Shakeel Graham MD Hep B Core Ab,IgM NONREACTIVE Normal [facility] Comment on above: Performed By: #### H IVCMB, PHEP #### [address] [address] Flare Stitcher: Dom Fowler MD #### CP #### [address] [place], [place] [id number] Flare Stitcher: Shakeel Graham MD Hep B Surf Ag NONREACTIVE Normal [facility] Comment on above: Performed By: #### H IVCMB, PHEP #### [facility] [address] [place] [address] Flare Stitcher: Dom Fowler MD #### CP #### [address] [place] [address] Flare Stitcher: Shakeel Graham MD Hep C Ab REACTIVE Abnormal NR [facility] Comment on above: Result Comment: The [...] By: #### H IVCMB, PHEP #### [facility] [address] [place] [address] Flare Stitcher: Dom Fowler MD #### CP #### [facility] [address] [place] [address] Flare Stitcher: Shakeel Graham MD Hepatitis Panel, Acuteon HAV IgM IA Qn (S) NONREACTIVE NONREACTIVE [place] Hep B Core Ab, IgM NONREACTIVE NONREACTIVE [place] Hepatitis B Surface Ag NONREACTIVE NONREACTIVE [place] Hepatitis C Ab REACTIVE Abnormal NONREACTIVE [place], [place] Comment on above: The hepatitis C [...] Interpretation and review of laboratory results Abnormal [place] Metabolic Panelon 04-26-2020 GFR/1.73 sq M predicted among non-blacks MDRD (S/P/Bld) [Vol rate/Area] [place] Comment on above: Stage 1: Some [...] body mass. Additional eGFR calculator available at: http://www.[employer]/multiple_crcl_2012.htm Microscopic Urinalysison Amorphous, UA NOT REPORTED None [place], [place] Bacteria, UA NOT REPORTED None [place], [place] Casts UA NOT REPORTED /LPF [place], [place] Crystals, UA 5 TO 10 Abnormal None /HPF [place] Crystals, UA CALCIUM OXALATE Abnormal None /HPF [place], [place] Epithelial Cells UA 0 TO 2 [place] Interpretation and review of laboratory results Abnormal [facility], [place] Mucus, UA TRACE Abnormal None [place] Other Observations UA NOT REPORTED NOT REQ. [place] RBC (U) [#/Vol] None [facility], [place] Renal Epithelial, UA NOT REPORTED 0 /HPF Me [facility], [place] Trichomonas, UA NOT REPORTED None [facility] WBC, UA 0 TO 2 [facility], [place] Yeast, UA NOT REPORTED None [facility], [place] UA w/Reflex Cultureon 2019 Acetoacetic Acid,Ur Negative Normal NEG [facility] Comment on above: Performed By: #### H IVCMB, PHEP #### [address] [address] Flare Stitcher: Dom Fowler MD #### CP #### [address] [place] [address] Flare Stitcher: Shakeel Graham MD Bilirubin, SemiQt,Ur Negative Normal NEG [facility] Comment on above: Performed By: #### H IVCMB, PHEP #### [address] [address] Flare Stitcher: Dom Fowler MD #### CP #### [address] [place] [address] Flare Stitcher: Shakeel Graham MD Color (U) YELLOW Normal [facility] Comment on above: Performed By: #### H IVCMB, PHEP #### [address] [address] Flare Stitcher: Dom Fowler MD #### CP #### [address] [place] [address] Flare Stitcher: Shakeel Graham MD Glucose Ql (U) Negative Normal NEG [facility] Comment on above: Performed By: #### H IVCMB, PHEP #### [address] [address] Flare Stitcher: Dom Fowler MD #### CP #### [facility] [address] [place] [address] Dr. [place], [place] [id number] Flare Stitcher: Shakeel Graham MD Hemoglobin, Ur Negative Normal NEG [facility] Comment on above: Performed By: #### H IVCMB, PHEP #### [address] [address] Flare Stitcher: Dom Fowler MD #### CP #### [address] [place], [place] [phone] Flare Stitcher: Shakeel Graham MD Leukocyte esterase Test strip Ql (U) Negative Normal NEG [facility] Comment on above: Performed By: #### H IVCMB, PHEP #### [address] [address] Flare Stitcher: Dom Fowler MD #### CP #### [address] [place], [place] [phone] Flare Stitcher: Shakeel Graham MD Nitrite,Ur Negative Normal NEG [facility] Comment on above: Performed By: #### H IVCMB, PHEP #### [address] [address] Flare Stitcher: Dom Fowler MD #### CP #### [address] [place], [place] [id number] Flare Stitcher: Shakeel Graham MD pH (U) 6.5 [pH] Normal 5.0-9.0 [facility] Comment on above: Performed By: #### H IVCMB, PHEP #### [address] [address] Flare Stitcher: Dom Fowler MD #### CP #### [facility] [address] [place] [address] [place] [address] Flare Stitcher: Shakeel Graham MD Protein Ql (U) Negative Normal NEG [facility] Comment on above: Performed By: #### H IVCMB, PHEP #### [facility] [address] [place] [address] Flare Stitcher: Dom Fowler MD #### CP #### [address] [place] [address] Flare Stitcher: Shakeel Graham MD Specific gravity (U) [Rel density] 1.025 High 1.010-1.020 [facility] Comment on above: Performed By: #### H IVCMB, PHEP #### [address] [address] Flare Stitcher: Dom Fowler MD #### CP #### [address] [place], [place] [id number] Flare Stitcher: Shakeel Graham MD Turbidity CLEAR Normal CLEAR [facility] Comment on above: Performed By: #### H IVCMB, PHEP #### [address] [address] Flare Stitcher: Dom Fowler MD #### CP #### [address] [place] [address] Flare Stitcher: Shakeel Graham MD Urobilinogen,Ur Normal Normal NORM [facility] Comment on above: Performed By: #### H IVCMB, PHEP #### [address] [address] Flare Stitcher: Dom Fowler MD #### CP #### [address] [place] [address] Flare Stitcher: Shakeel Graham MD Comment NOT REPORTED Normal [facility] Comment on above: Performed By: #### H IVCMB, PHEP #### [place] [address] [place] [address] Flare Stitcher: Dom Fowler MD #### CP #### [facility] [address] [place] [address] [place] [address] Flare Stitcher: Shakeel Graham MD Urinalysis Reflex to Culture on 04-26-2020 Bilirubin Urine Negative NEGATIVE [facility] [place] Color, UA YELLOW YELLOW [facility], [place] Glucose, Ur Negative NEGATIVE [facility] Interpretation and review of laboratory results Abnormal [place] Ketones Ql (U) Negative NEGATIVE [facility], [place] Leukocyte esterase Test strip Ql (U) Negative NEGATIVE [facility], [place] Nitrite, Urine Negative NEGATIVE [facility], [place] pH, UA 6.5 [place] Protein (U) [Mass/Vol] Negative NEGATIVE [facility], [place] Specific [place], UA 1.025 High [facility], [place] Turbidity UA CLEAR CLEAR [place] Urinalysis Comments NOT REPORTED [facility], [place] Urine Hgb Negative NEGATIVE [facility] Urobilinogen, Urine Normal Normal [place] Urinalysis,Microon 0 ----- Normal [facility] Comment on above: Performed By: #### H IVCMB, PHEP #### [address] [address] Flare Stitcher: Dom Fowler MD #### CP #### [facility] [address] [place] [address] [place] [address] Flare Stitcher: Shakeel Graham MD Crystals LM Nom (Urine sed) CALCIUM OXALATE Abnormal NONE [facility] Comment on above: Result Comment: 5 TO 10 Performed By: #### H IVCMB, PHEP #### [place] [address] [place] [address] Flare Stitcher: Dom Fowler MD #### CP #### [address] [place] [address] Flare Stitcher: Shakeel Graham MD Epithelial cells LM.HPF (Urine sed) [#/Area] 0 TO 2 Normal 0-25 [facility] Comment on above: Performed By: #### H IVCMB, PHEP #### [address] [address] Flare Stitcher: Dom Fowler MD #### CP #### [address] [place] [id number] Flare Stitcher: Shakeel Graham MD Mucus Strands TRACE Abnormal NONE [facility] Comment on above: Performed By: #### H IVCMB, PHEP #### [address] [address] Flare Stitcher: Dom Fowler MD #### CP #### [address] [place] [address] Flare Stitcher: Shakeel Graham MD RBC (U) [#/Vol] None Normal 0-2 [facility] Comment on above: Performed By: #### H IVCMB, PHEP #### [address] [address] Flare Stitcher: Dom Fowler MD #### CP #### [address] [place] [id number] ( Flare Stitcher: Shakeel Graham MD WBC (U) [#/Vol] 0 TO 2 Normal 0-5 [facility] Comment on above: Performed By: #### H IVCMB, PHEP #### [address] [address] Flare Stitcher: Dom Fowler MD #### CP #### [address] [place], [place] [phone] Flare Stitcher: Shakeel Graham MD Amorphous sediment LM Ql (Urine sed) NOT REPORTED Normal NONE [facility] Comment on above: Performed By: #### H IVCMB, PHEP #### [facility] [address] [place] [address] Flare Stitcher: Dom Fowler MD #### CP #### [facility] [address] [place] [address] [place] [address] Flare Stitcher: Shakeel Graham MD Bacteria LM.HPF (Urine sed) [#/Area] NOT REPORTED Normal NONE [facility] Comment on above: Performed By: #### H IVCMB, PHEP #### [address] [address] Flare Stitcher: Dom Fowler MD #### CP #### [address] [place] [address] Flare Stitcher: Shakeel Graham MD Casts LM.LPF (Urine sed) [#/Area] NOT REPORTED Normal [facility] Comment on above: Performed By: #### H IVCMB, PHEP #### [address] [address] Flare Stitcher: Dom Fowler MD #### CP #### [address] [place] [address] Flare Stitcher: Shakeel Graham MD Epithelial, Renal NOT REPORTED Normal 0 [facility] Comment on above: Performed By: #### H IVCMB, PHEP #### [address] [address] Flare Stitcher: Dom Fowler MD #### CP #### [address] [place] [address] Flare Stitcher: Shakeel Graham MD Other Observations NOT REPORTED Normal NREQ [facility] Comment on above: Performed By: #### H IVCMB, PHEP #### [address] [address] Flare Stitcher: Dom Fowler MD #### CP #### [facility] [address] [place] [phone] Flare Stitcher: Shakeel Graham MD Trichomonas NOT REPORTED Normal NONE [facility] Comment on above: Performed By: #### H IVCMB, PHEP #### [facility] [address] [place] [address] Flare Stitcher: Dom Fwoler MD #### CP #### [facility] [address] [place] [phone] Flare Stitcher: Shakeel Graham MD Yeast LM Ql (Urine sed) NOT REPORTED Normal NONE [facility] Comment on above: Performed By: #### H IVCMB, PHEP #### [place] [address] [place] [address] Flare Stitcher: Dom Fowler MD #### CP #### [facility] [address] [place] [address] Dr. [place] [phone] Flare Stitcher: Shakeel Graham MD ED Clinical Summaryon 2019 ED Clinical Summary [address] [address] ED Clinical Summary Person Information Name: Kathryn Ervin/[facility] Age: 25 Years : 1995 Sex: Female PCP: Marital Status: Single Phone: Race: White Ethnicity: Not or Language: Faroese Visit Reason: Drug withdrawal; Drug withdrawal Acuity: 3 Enc Type: Emergency Med Service: Emergency Medicine Arrival: 03/16/2020 20:10:45 Discharge: 03/17/2020 02:12:00 LOS: 000 06:02 Checkin: 03/16/2020 20:10:45 Checkout: 03/17/2020 02:12:00 Dispo Type: Home or Self Care Address: [address] [place] [address] Provider Notes: Diagnosis: 1:Affective disorder; 2:Drug usage [...] range between ( 27.2 and 40.8 ) Harvey Auto: 11.4 % -- Normal range between [...] range between ( 36.0 and 46.0 ) Harvey Absolute: 1.5 x10 MCH: 27.4 pg -- [...] 03/16/2020 20:20:41 Follow up: With: Address: When: [facility] [place], [place] Within 1 to 2 days Discharge Orders: Discharge Patient 03/17/20 1:45:00 EDT, Discharge to Home, Self Patient Education Information: Understanding Methamphetamine Abuse and Addiction; Treating Affective (Mood) Disorders [facility] Poison Help line: . [facility] [place] Mental Health Hotline: [place] Tobacco Quit Line: [place], [place]) [address]: [phone] [place], [place]) [address]: [phone] [facility] [address] [place], [place]: [phone] Normal [facility] hCG Quantitativeon 0 Beta hCG Qnt 1.7 mIU/mL Normal 0.0-4.9 [facility] Comment on above: Result Comment: 0.0 - 4.9 Negative for 5.0 - 25.0 Indeterminant for : Suggest repeat in 72 hours. >25.0 Positive for Performed By: #### H CG ####[place] [address] .UA Microscp Aon 03-16-2020 UA Hyline Cast Qual >20 Abnormal Negative [facility] Comment on above: Performed By: #### C [id number] ####[place] [id number] UA Mucus Present Abnormal Absent [facility] Comment on above: Performed By: #### C [id number] ####[place] [id number] UA RBC Quant 12 /HPF High 0-5 [facility] Comment on above: Performed By: #### C [id number] ####[address] [address] UA Squepi Cells Quant 6 /HPF Normal 0-29 [facility] Comment on above: Performed By: #### C [id number] ####[address] [address] UA WBC Quant 7 /HPF High 0-5 [facility] Comment on above: Performed By: #### C [id number] ####[address] [address] .eGFRon 03-16-2020 eGFR AA 52 mL/min/1.73m? Low >=60 [facility] Comment on above: Result Comment: Resu lt = 0-14.9 mL/min/1.73 m2 Kidney failure or Dialysis Result = 15-29 mL/min/1.73 m2 Severe decrease in GFR Result = 30-59 mL/min/1.73 m2 Moderate decrease in GFR Result >= 60 mL/min/1.73 m2 Normal or increased GFR Performed By: #### E GFR #### [address] [address] eGFR Non-AA 43 mL/min/1.73m? Low >=60 [facility] Comment on [...] dosing. Performed By: #### E GFR #### [address] [address] CBC w/ Diffon 03-16-2020 Erythrocyte distribution width (RBC) [Ratio] 15.9 % High 11.6-14.8 [facility] Comment on above: Performed By: #### C BC #### [address] [address] Hematocrit (Bld) [Volume fraction] 37.5 % Normal 36.0-46.0 [facility] Comment on above: Performed By: #### C BC #### [address] [address] Hemoglobin (Bld) [Mass/Vol] 12.5 g/dL Normal 12.0-16.0 [facility] Comment on above: Performed By: #### C BC #### [address] [address] MCH (RBC) [Entitic mass] 27.4 pg Normal 27.0-35.0 [facility] Comment on above: Performed By: #### C BC #### [address] [address] MCHC (RBC) [Mass/Vol] 33.2 % Normal 31.0-37.0 [facility] Comment on above: Performed By: #### C BC #### [address] [address] MCV (RBC) [Entitic vol] 82.4 fL Normal 80.0-100.0 [facility] Comment on above: Performed By: #### C BC #### [address] [address] Platelet mean volume (Bld) [Entitic vol] 9.4 fL Normal 6.7-10.6 [facility] Comment on above: Performed By: #### C BC #### [address] [address] Platelets (Bld) [#/Vol] 307 x10*3/mcL Normal 150-350 [facility] Comment on above: Performed By: #### C BC #### [address] [address] RBC (Bld) [#/Vol] 4.55 x10*6/mcL Normal 3.80-5.20 [facility] Comment on above: Performed By: #### C BC #### [address] [address] WBC (Bld) [#/Vol] 12.9 x10*3/mcL High 4.5-11.0 [facility] Comment on above: Performed By: #### C BC #### [address] [address] CMPon 03-16-2020 Albumin [Mass/Vol] 5.2 g/dL High 3.2-4.9 [facility] Comment on above: Result Comment: [facility] Laboratory updated the methodology used for albumin testing on 04/24/18. Albumin measurement was performed using a bromcresol purple dye-binding assay. Performed By: #### C OMP #### [address] [address] Albumin/Globulin [Mass ratio] 1.5 {ratio} Normal 1.1-2.2 [facility] Comment on above: Performed By: #### C OMP #### [address] [address] Alk Phos 47 IU/L Normal 32-91 [facility] Comment on above: Performed By: #### C OMP #### [address] [address] ALT [Catalytic activity/Vol] 19 U/L Normal 14-54 [facility] Comment on above: Performed By: #### C OMP #### [address] [place] [address] Anion gap [Moles/Vol] 22 mmol/L High 7-17 [facility] Comment on above: Performed By: #### C OMP #### [address] [address] AST [Catalytic activity/Vol] 31 U/L Normal 15-41 [facility] Comment on above: Performed By: #### C OMP #### [address] [address] Bili Total 1.4 mg/dL High 0.3-1.2 [facility] Comment on above: Performed By: #### C OMP #### [address] [address] Calcium [Mass/Vol] 10.2 mg/dL Normal 8.5-10.3 [facility] Comment on above: Performed By: #### C OMP #### [address] [address] Chloride [Moles/Vol] 100 mmol/L Normal 98-110 [facility] Comment on above: Performed By: #### C OMP #### [address] [address] CO2 [Moles/Vol] 19 mmol/L Low 22-32 [facility] Comment on above: Performed By: #### C OMP #### [address] [address] Creatinine [Mass/Vol] 1.47 mg/dL High 0.44-1.03 [facility] Comment on above: Performed By: #### C OMP #### [address] [address] Glucose [Mass/Vol] 85 mg/dL Normal 70-99 [facility] Comment on above: Performed By: #### C OMP #### [address] [address] Potassium [Moles/Vol] 3.7 mmol/L Normal 3.4-4.8 [facility] Comment on above: Performed By: #### C OMP #### [address] [address] Protein [Mass/Vol] 8.7 g/dL High 6.5-8.1 [facility] Comment on above: Performed By: #### C OMP #### [address] [address] Sodium [Moles/Vol] 137 mmol/L Normal 133-142 [facility] Comment on above: Performed By: #### C OMP #### [address] [address] Urea nitrogen [Mass/Vol] 25 mg/dL Normal 8-26 [facility] Comment on above: Performed By: #### C OMP #### [address] [address] Urea nitrogen/Creatinine [Mass ratio] 17.0 mg/mg Normal 10.0-20.0 [facility] Comment on above: Performed By: #### C OMP #### [address] [address] CPKon 03-16-2020 Creatine Phosphokinase 439 IU/L High 38-234 [facility] Comment on above: Performed By: #### C P #### [address] [address] Diff Autoon 03-16-2020 Baso Absolute 0.0 x10*3/mcL Normal 0.0-0.2 [facility] Comment on above: Performed By: #### . Automated Diff #### [address] [address] Basophils/100 WBC (Bld) 0.4 % Normal 0.0-1.5 [facility] Comment on above: Performed By: #### . Automated Diff #### [address] [address] Eos Absolute 0.0 x10*3/mcL Normal 0.0-0.4 [facility] Comment on above: Performed By: #### . Automated Diff #### [address] [address] Eosinophils/100 WBC (Bld) 0.1 % Normal 0.0-5.4 [facility] Comment on above: Performed By: #### . Automated Diff #### [address] [address] Lymphocytes (Bld) [#/Vol] 1.4 x10*3/mcL Normal 1.0-4.8 [facility] Comment on above: Performed By: #### . Automated Diff #### [address] [address] Lymphocytes/100 WBC (Bld) 10.8 % Low 27.2-40.8 [facility] Comment on above: Performed By: #### . Automated Diff #### [address] [address] Harvey Absolute 1.5 x10*3/mcL High 0.1-1.1 [facility] Comment on above: Performed By: #### . Automated Diff #### [facility] [address] [place] [address] Monocytes/100 WBC (Bld) 11.4 % Normal 3.7-11.9 [facility] Comment on above: Performed By: #### . Automated Diff #### [facility] [address] [place] [address] Neutro Absolute 10.0 x10*3/mcL High 1.8-7.7 [facility] Comment on above: Performed By: #### . Automated Diff #### [facility] [address] [place] [address] Neutro Auto 77.3 % High 47.2-70.8 [facility] Comment on above: Performed By: #### . Automated Diff #### [address] [address] ED Note-Nursingon 03-16-2020 ED Note-Nursing Lab called about add ons Electronically signed by Barbara Holman 03/16/20 20:49 EDT Normal [facility] ED Note-Physicianon 03-16-20 ED Note-Physician [...] that she has residential set up at [facility] in [place], [place] but she has to detox first. [...] has arranged for her to go to [facility] tomorrow as patient is interested in treatment. Verbally contracted to safety and filled out a safety plan. Alonso with social work spoke with learning support services director, Jelena who will arrange for further follow-up when they arrive tomorrow. Family is agreeable with plan. Patient has good support. They will return if any changes of symptoms or concern. Silvia Castañeda scribing for and in the presence of Dr. Cornell. Scribe Attestation: The information in this document, created by the medical assisting program director for me, accurately reflects the services I [...] High Lymph Auto 03/16/20 20:39 10.8 Low Harvey Auto 03/16/20 20:39 11.4 Eos Auto 03/16/20 20:39 0.1 Basophil Auto 03/16/20 20:39 0.4 Neutro Absolute 03/16/20 20:39 10.0 High Lymph Absolute 03/16/20 20:39 1.4 Harvey Absolute 03/16/20 20:39 1.5 High Eos Absolute [...] DANIELLE, Lima Richards 03/17/2020 04:16 EDT Normal [facility] Ethanolon 03-16-2020 Ethanol [Mass/Vol] mg/dL Normal <=9 [facility] Comment on above: Result Comment: To c onvert mg/dL to g/dL, divide result by 1,000. Legal limit of intoxication is 80 mg/dL (0.08 g/dL). Performed By: #### A LC #### [address] [address] UA w Culture if Indon 2019 Color (U) Terri Normal [facility] Comment on above: Performed By: #### U CI #### [address] [address] Glucose (U) [Mass/Vol] Negative Normal Negative [facility] Comment on above: Performed By: #### U CI #### [address] [place] [address] Ketones Ql (U) 20 mg/dL Abnormal Negative [facility] Comment on above: Performed By: #### U CI #### [address] [place] [address] UA Blood Small Abnormal Negative [facility] Comment on above: Performed By: #### U CI #### [address] [place] [address] UA Clarity Cloudy Normal [facility] Comment on above: Performed By: #### U CI #### [address] [address] UA Leukocyte Esterase Trace Abnormal Negative [facility] Comment on above: Performed By: #### U CI #### [address] [place] [address] UA Nitrite Negative Normal Negative [facility] Comment on above: Performed By: #### U CI #### [address] [address] UA pH 5.0 Normal 4.5 - 7.8 [facility] Comment on above: Performed By: #### U CI #### [address] [address] UA Protein 100 mg/dL Abnormal Negative [facility] Comment on above: Performed By: #### U CI #### [address] [address] UA Source Clean Catch Normal [facility] Comment on above: Performed By: #### U CI #### [address] [address] UA Spec Grav 1.025 Normal 1.003-1.035 [facility] Comment on above: Performed By: #### U CI #### [address] [address] UA Urobilinogen 0.2 mg/dL Normal 0.2 - 1.0 [facility] Comment on above: Performed By: #### U CI #### [address] [address] Urobilinogen Qn (U) Small Abnormal Negative [facility] Comment on above: Performed By: #### U CI #### [address] [address] UDS Compon 03-16-2020 Creatinine [Mass/Vol] mg/dL Normal [facility] Comment on above: Performed By: #### C [id number] #### [address] [address] Ur Amph Scrn Positive Abnormal NEG = <1000 [facility] Comment on above: Result Comment: This unconfirmed positive screening result is to be used for medical treatment purposes only. Unconfirmed screening results must not be used for non-medical purposes. (e.g. employment testing, legal testing). Performed By: #### C [id number] #### [address] [address] Ur Anastasia Scrn Negative Normal NEG = <200 [facility] Comment on above: Performed By: #### C [id number] #### [facility] [address] [place] [address] Ur Benzodia Scrn Negative Normal NEG = <200 [facility] Comment on above: Performed By: #### C [id number] #### [facility] [address] [facility] [place] [address] Ur Cannab Scrn Negative Normal NEG = <50 [facility] Comment on above: Performed By: #### C [id number] #### [facility] [address] [place] [address] Ur Cocaine Scrn Negative Normal NEG = <300 [facility] Comment on above: Performed By: #### C [id number] #### [address] [place] [address] Ur Methadone Scn Negative Normal NEG = <300 [facility] Comment on above: Performed By: #### C [id number] #### [address] [place] [address] Ur Opiate Scrn Negative Normal NEG = <300 [facility] Comment on above: Performed By: #### C [id number] #### [facility] [address] [place] [address], [place] [address] Ur Oxy Screen Negative Normal NEG = <100 [facility] Comment on above: Performed By: #### C [id number] #### [address] [place] [address] Ur Oxy Scrn Qnt 54 ng/mL Normal <=99 [facility] Comment on above: Performed By: #### C [id number] #### [facility] [address] [place] [address] [place] [address] Ur PCP Scrn Negative Normal NEG = <25 [facility] Comment on above: Performed By: #### C [id number] #### [address] [place] [address] UA pH 5.0 Normal 4.5 - 7.8 [facility] Comment on above: Performed By: #### C [id number] #### [facility] [address] [place] [address] UA Spec Grav 1.024 Normal 1.003-1.035 [facility] Comment on above: Performed By: #### C [id number] #### [facility] [address] [place] [address] Chlamydia/GC DNA, Uron 11-23 Chlamydia Probe, Ur Negative Normal NEG [facility] Comment on above: Result Comment: CHLA [...] Performed By: #### H IVCMB, PHEP #### [address] [place], [place] [id number] Flare Stitcher: Dom Fowler MD #### CP #### [facility] [address] [place] [address] Flare Stitcher: Shakeel Graham MD Gonorrhea Probe, Ur Negative Normal NEG [facility] Comment on above: Result Comment: NEIS [...] Performed By: #### H IVCMB, PHEP #### [address] [place], [place] [id number] Flare Stitcher: Dom Fowler MD #### CP #### [facility] [address] [place] [address] Flare Stitcher: Shakeel Graham MD Cult,Urineon 11-22-2019 Cult,Urine Specimen Description .VOIDED URINE Special Requests NOT REPORTED Culture NO SIGNIFICANT GROWTH Report Status FINAL 11/22/2019 Normal [facility] Comment on above: Performed By: #### H IVCMB, PHEP #### [facility] [address] [place] [address] Flare Stitcher: Dom Fowler MD #### CP #### [facility] [address] [place] [address] Flare Stitcher: Shakeel Graham MD HIV Ag/Abon 11-21-2019 HIV Ag/Ab NONREACTIVE Normal [facility] Comment on above: Result Comment: No l aboratory evidence of HIV infection. If acute HIV infection is suspected, consider testing for HIV-1 RNA. Performed By: #### H IVCMB, PHEP #### [address] [address] Flare Stitcher: Dom Fowler MD #### CP #### [facility] [address] [place] [address] Flare Stitcher: Shakeel Graham MD HIV Screenon 11-21-2019 HIV Ag/Ab NONREACTIVE NONREACTIVE [place], [place] Comment on above: No laboratory eviden ce of HIV infection. If acute HIV infection is suspected, consider testing for HIV-1 RNA. Hep C Abon 11-21-2019 Hep C Ab REACTIVE Abnormal NR [facility] Comment on above: Result Comment: The [...] Performed By: #### H IVCMB, PHEP #### [facility] [place] [address] Flare Stitcher: Dom Fowler MD #### CP #### [facility] [address] [place] [address] [place] [address] Flare Stitcher: Shakeel Graham MD Profileon 0 Hep B Surf Ag NONREACTIVE Normal NR [facility] Comment on above: Performed By: #### H IVCMB, PHEP #### [address] [address] Flare Stitcher: Dom Fowler MD #### CP #### [address] [place] [address] Flare Stitcher: Shakeel Graham MD T.pallidum Ab Screen NONREACTIVE Normal NR [facility] Comment on above: Result Comment: T. pallidum antibodies are not detected. There is no serological evidence of infection with T. pallidum (early primary syphilis cannot be excluded). Retest in 2-4 weeks if syphilis is clinically suspect. Performed By: #### H IVCMB, PHEP #### [address] [address] Flare Stitcher: Dom Fowler MD #### CP #### [address] [place], [place] [id number] Flare Stitcher: Shakeel Graham MD Rubella Ab, IgG 323.1 IU/mL Normal [facility] Comment on above: Result Comment: REFERENCE RANGE: <5.0 NON-REACTIVE (non-immune) 5.0 TO 9.9 EQUIVOCAL >=10.0 REACTIVE (immune) Performed By: #### H IVCMB, PHEP #### [address] [address] Flare Stitcher: Dom Fowler MD #### CP #### [address] [place], [place] 6[address]7083 Flare Stitcher: Shakeel Graham MD HCG, Quanton 11-20-2019 HCG, Quant [id number] IU/L High <5 [facility] Comment on above: Result Comment: Non-preg [...] Performed By: #### H IVCMB, PHEP #### [facility] [address] [place] [address] Flare Stitcher: Dom Fowler MD #### CP #### [facility] [address] [place] [address] Flare Stitcher: Shakeel Graham MD HCG, Quantitative, on 11-20-2019 hCG Quant [id number] High <5 IU/L [place], [place] Comment on above: Non-preg premeno <=5 Postmeno <=8 Male <=3 If HCG results do not concur with clinical observations, additional testing to confirm results is recommended. Elevated results not associated with may be found in patients with other diseases such as tumors of the germ cells (testis, ovaries, etc.), bladder, pancreas, stomach, lungs, and liver. Interpretation and review of laboratory results Abnormal [place], [place] Hepatitis C Antibodyon 11-19 Hepatitis C Ab REACTIVE Abnormal NONREACTIVE [place], [place] Comment on above: The hepatitis C [...] Interpretation and review of laboratory results Abnormal [place], [place] TYPE AND SCREENon 0 11-20-2019 ABO/Rh Positive [place], [place] Profileon 0 Abs. Basophil 0.03 k/uL Normal 0.00-0.20 [facility] Comment on above: Performed By: #### H IVCMB, PHEP #### [facility] [address] [place] [address] Flare Stitcher: Dom Fowler MD #### CP #### [facility] [address] [place] [address] Dr[address] [place] [phone] Flare Stitcher: Shakeel Graham MD Abs.Imm.Granulocyte <0.03 Normal 0.00-0.30 [facility] Comment on above: Performed By: #### H IVCMB, PHEP #### [address] [address] Flare Stitcher: Dom Fowler MD #### CP #### [facility] [address] [place] [address] [place] [address] Flare Stitcher: Shakeel Graham MD Abs.Neutrophil (Seg) 2.95 k/uL Normal 1.50-8.10 [facility] Comment on above: Performed By: #### H IVCMB, PHEP #### [place] [address] Flare Stitcher: Dom Fowler MD #### CP #### [facility] [address] [place] [address] [place] [address] Flare Stitcher: Shakeel Graham MD Basophils/100 WBC (Bld) 1 % Normal 0-2 [facility] Comment on above: Performed By: #### H IVCMB, PHEP #### [place] [address] Flare Stitcher: Dom Fowler MD #### CP #### [facility] [address] [place] [address] [place] [address] Flare Stitcher: Shakeel Graham MD Eosinophils (Bld) [#/Vol] 0.09 10*3/uL Normal 0.00-0.44 [facility] Comment on above: Performed By: #### H IVCMB, PHEP #### [place] [address] Flare Stitcher: Dom Fowler MD #### CP #### [address] [place], [place] [id number] Flare Stitcher: Shakeel Graham MD Eosinophils/100 WBC (Bld) 2 % Normal 1-4 [facility] Comment on above: Performed By: #### H IVCMB, PHEP #### [address] [id number] Flare Stitcher: Dom Fowler MD #### CP #### [address] [place], [place] [phone] Flare Stitcher: Shakeel Graham MD Erythrocyte distribution width (RBC) [Ratio] 14.0 % Normal 11.8-14.4 [facility] Comment on above: Performed By: #### H IVCMB, PHEP #### [address] [id number] Flare Stitcher: oDm Fowler MD #### CP #### [address] [place] [id number] Flare Stitcher: Shakeel Graham MD Hematocrit (Bld) [Volume fraction] 37.7 % Normal 36.3-47.1 [facility] Comment on above: Performed By: #### H IVCMB, PHEP #### [address] [address] Flare Stitcher: Dom Fowler MD #### CP #### [address] [place], [place] [phone] Flare Stitcher: Shakeel Graham MD Hemoglobin (Bld) [Mass/Vol] 11.8 g/dL Low 11.9-15.1 [facility] Comment on above: Performed By: #### H IVCMB, PHEP #### [address] [address] Flare Stitcher: Dom Fowler MD #### CP #### [address] [place], [place] [id number] Flare Stitcher: Shakeel Graham MD Immature granulocytes (Bld) [#/Vol] 0 % Normal 0 [facility] Comment on above: Performed By: #### H IVCMB, PHEP #### [address] [address] Flare Stitcher: Dom Fowler MD #### CP #### [address] [place] [phone] Flare Stitcher: Shakeel Graham MD Lymphocytes (Bld) [#/Vol] 1.50 10*3/uL Normal 1.10-3.70 [facility] Comment on above: Performed By: #### H IVCMB, PHEP #### [address] [address] Flare Stitcher: Dom Fowler MD #### CP #### [address] [place] [phone] Flare Stitcher: Shakeel Graham MD Lymphocytes/100 WBC (Bld) 30 % Normal 24-43 [facility] Comment on above: Performed By: #### H IVCMB, PHEP #### [address] [address] Flare Stitcher: Dom Fowler MD #### CP #### [address] [place] [phone] Flare Stitcher: Shakeel Graham MD MCH (RBC) [Entitic mass] 26.5 pg Normal 25.2-33.5 [facility] Comment on above: Performed By: #### H IVCMB, PHEP #### [address] [address] Flare Stitcher: Dom Fowler MD #### CP #### [address] [place] [phone] Flare Stitcher: Shakeel Graham MD MCHC (RBC) [Mass/Vol] 31.3 g/dL Normal 28.4-34.8 [facility] Comment on above: Performed By: #### H IVCMB, PHEP #### [address] [id number] Flare Stitcher: Dom Fowler MD #### CP #### [address] [place] [phone] Flare Stitcher: Shakeel Graham MD MCV (RBC) [Entitic vol] 84.5 fL Normal 82.6-102.9 [facility] Comment on above: Performed By: #### H IVCMB, PHEP #### [address] [id number] Flare Stitcher: Dom Fowler MD #### CP #### [address] [place] [phone] Flare Stitcher: Shakeel Graham MD Monocytes (Bld) [#/Vol] 0.37 10*3/uL Normal 0.10-1.20 [facility] Comment on above: Performed By: #### H IVCMB, PHEP #### [address] [id number] Flare Stitcher: Dom Fowler MD #### CP #### [address] [place] [phone] Flare Stitcher: Shakeel Graham MD Monocytes/100 WBC (Bld) 8 % Normal 3-12 [facility] Comment on above: Performed By: #### H IVCMB, PHEP #### [address] [address] Flare Stitcher: Dom Fowler MD #### CP #### [address] [place] [address] Flare Stitcher: Shakeel Graham MD Neutrophil (Seg) 59 % Normal 36-65 [facility] Comment on above: Performed By: #### H IVCMB, PHEP #### [address] [place] [address] Flare Stitcher: Dom Fowler MD #### CP #### [facility] [address] [place], [place] [id number] Flare Stitcher: Sahkeel Graham MD NRBC Automated 0.0 per 100 WBC Normal 0.0 [facility] Comment on above: Performed By: #### H IVCMB, PHEP #### [address] [address] Flare Stitcher: Dom Fowler MD #### CP #### [facility] [address] [place] [phone] Flare Stitcher: Shakeel Graham MD Platelet mean volume (Bld) [Entitic vol] 11.2 fL Normal 8.1-13.5 [facility] Comment on above: Performed By: #### H IVCMB, PHEP #### [address] [address] Flare Stitcher: Dom Fowler MD #### CP #### [facility] [address] [place] [phone] Flare Stitcher: Shakeel Graham MD Platelets (Bld) [#/Vol] 254 10*3/uL Normal 138-453 [facility] Comment on above: Performed By: #### H IVCMB, PHEP #### [address] [address] Flare Stitcher: Dom Fowler MD #### CP #### [facility] [address] [place], [place] [phone] Flare Stitcher: Shakeel Graham MD RBC (Bld) [#/Vol] 4.46 10*6/uL Normal 3.95-5.11 [facility] Comment on above: Performed By: #### H IVCMB, PHEP #### [facility] [address] [place] [address] Flare Stitcher: Dom Fowler MD #### CP #### [facility] [address] [place] [address] Flare Stitcher: Shakeel Graham MD WBC (Bld) [#/Vol] 5.0 10*3/uL Normal 3.5-11.3 [facility] Comment on above: Performed By: #### H IVCMB, PHEP #### [address] [address] Flare Stitcher: Dom Fowler MD #### CP #### [facility] [address] [place] [address] [place] [address] Flare Stitcher: Shakeel Graham MD Auto Diff Performed NOT REPORTED Normal [facility] Comment on above: Performed By: #### H IVCMB, PHEP #### [address] [address] Flare Stitcher: Dom Fowler MD #### CP #### [address] [place] [address] Flare Stitcher: Shakeel Graham MD Platelets (Bld) [#/Vol] NOT REPORTED Normal [facility] Comment on above: Performed By: #### H IVCMB, PHEP #### [address] [address] Flare Stitcher: Dom Fowler MD #### CP #### [address] [place] [address] Flare Stitcher: Shakeel Graham MD RBC morphology finding Nom (Bld) NOT REPORTED Normal [facility] Comment on above: Performed By: #### H IVCMB, PHEP #### [address] [address] Flare Stitcher: Dom Fowler MD #### CP #### [facility] [address] [place], [place] [phone] Flare Stitcher: Shakeel Graham MD WBC Morphology NOT REPORTED Normal [facility] Comment on above: Performed By: #### H IVCMB, PHEP #### [facility] [address] [place] [address] Flare Stitcher: Dom Fowler MD #### CP #### [facility] [address] [place] [address] [place] [place] [id number] Flare Stitcher: Shakeel Graham MD Type + Scrnon 11-19 Type + Scrn Negative Normal [facility] Comment on above: Performed By: #### H IVCMB, PHEP #### [address] [address] Flare Stitcher: Dom Fowler MD #### CP #### [address] [place] [phone] Flare Stitcher: Shakeel Graham MD Toxicology [facility] Amphetamine(s),Ur Negative Normal NEG [facility] Comment on above: Performed By: #### H IVCMB, PHEP #### [address] [address] Flare Stitcher: Dom Fowler MD #### CP #### [address] [place], [place] [phone] Flare Stitcher: Shakeel Graham MD Barbiturate(s),Ur Negative Normal NEG [facility] Comment on above: Performed By: #### H IVCMB, PHEP #### [address] [address] Flare Stitcher: Dom Fowlre MD #### CP #### [address] [place] [address] Flare Stitcher: Shakeel Graham MD Benzodiazepine(s) Negative Normal NEG [facility] Comment on above: Performed By: #### H IVCMB, PHEP #### [facility] [address] [place] [address] Flare Stitcher: Dom Fowler MD #### CP #### [facility] [address] [place] [address] [place], [place] [phone] Flare Stitcher: Shakeel Graham MD Buprenorphrine, Ur Negative Normal NEG [facility] Comment on above: Performed By: #### H IVCMB, PHEP #### [facility] [address] [place] [address] Flare Stitcher: Dom Fowler MD #### CP #### [address] [place] [phone] Flare Stitcher: Shakeel Graham MD Cannabinoid(s),Ur Negative Normal [facility] Comment on above: Performed By: #### H IVCMB, PHEP #### [facility] [address] [place] [address] Flare Stitcher: Dom Fowler MD #### CP #### [address] [place], [place] [phone] Flare Stitcher: Shakeel Graham MD Cocaine Metabolite Negative [facility] Comment on above: Performed By: #### H IVCMB, PHEP #### [facility] [address] [place] [address] Flare Stitcher: Dom Fowler MD #### CP #### [facility] [address] [place] [address] Dr[place], [place] [phone] Flare Stitcher: Shakeel Graham MD Methadone Ql (U) Negative Normal NEG [facility] Comment on above: Performed By: #### H IVCMB, PHEP #### [address] [address] Flare Stitcher: Dom Fowler MD #### CP #### [facility] [address] [place] [address] Dr[address] [place], [place] [phone] Flare Stitcher: Shakeel Graham MD Methamphetamine, Ur Negative Normal NEG [facility] Comment on above: Performed By: #### H IVCMB, PHEP #### [facility] [address] [place] [address] Flare Stitcher: Dom Fowler MD #### CP #### [address] [place], [place] [phone] Flare Stitcher: Shakeel Graham MD Opiate(s), Ur Negative Normal NEG [facility] Comment on above: Performed By: #### H IVCMB, PHEP #### [address] [address] Flare Stitcher: Dom Fowler MD #### CP #### [address] [place], [place] [phone] Flare Stitcher: Shakeel Graham MD Oxycodone, Urine Negative Normal NEG [facility] Comment on above: Performed By: #### H IVCMB, PHEP #### [address] [address] Flare Stitcher: Dom Fowler MD #### CP #### [address] [place], [place] [phone] Flare Stitcher: Shakeel Graham MD Phencyclidine, Ur Negative Normal NEG [facility] Comment on above: Performed By: #### H IVCMB, PHEP #### [address] [address] Flare Stitcher: Dom Fowler MD #### CP #### [address] [place], [place] [phone] Flare Stitcher: Shakeel Graham MD Propoxyphene,Urine Negative Normal NEG [facility] Comment on above: Performed By: #### H IVCMB, PHEP #### [address] [address] Flare Stitcher: Dom Fowler MD #### CP #### [facility] [address] [place] [address] Dr. [place], [place] [id number] Flare Stitcher: Shakeel Graham MD Tricyclic antidepressants Screen Ql (U) Negative Normal NEG [facility] Comment on above: Result Comment: Drug screen results are to be used for medical purposes only. All positive results are unconfirmed. Testing for employment or legal uses should be sent to a reference laboratory for confirmation. Performed By: #### H IVCMB, PHEP #### [address] [address] Flare Stitcher: Dom Fowler MD #### CP #### [address] [place] [address] Flare Stitcher: Shakeel Graham MD Interpretive Info NOT REPORTED Normal [facility] Comment on above: Performed By: #### H IVCMB, PHEP #### [address] [address] Flare Stitcher: Dom Fowler MD #### CP #### [address] [place], [place] [id number] Flare Stitcher: Shakeel Graham MD MDMA, Urine NOT REPORTED Normal NEG [facility] Comment on above: Performed By: #### H IVCMB, PHEP #### [address] [address] Flare Stitcher: Dom Fowler MD #### CP #### [address] [place] [address] Flare Stitcher: Shakeel Graham MD Urine Drug Screen, Magda arizmendijudithon 11-20-2019 Amphetamine Screen, Ur Negative NEGATIVE [facility] [place] Barbiturate Screen, Ur Negative NEGATIVE [facility] [place] Benzodiazepine Screen, Urine Negative NEGATIVE [facility] [place] Buprenorphine Urine Negative NEGATIVE [facility] [place] Cannabinoid Scrn, Ur Negative NEGATIVE [facility] [place] Cocaine Metabolite, Urine Negative NEGATIVE [facility] [place] MDMA, Urine NOT REPORTED NEGATIVE [facility] [place] Methadone Screen, Urine Negative NEGATIVE [facility] [place] Methamphetamine, Urine Negative NEGATIVE [facility] [place] Opiates, Urine Negative NEGATIVE [facility] [place] Oxycodone Screen, Ur Negative NEGATIVE [facility] [place] Phencyclidine, Urine Negative NEGATIVE [facility] [place] Propoxyphene, Urine Negative NEGATIVE [facility] [place] Test Information NOT REPORTED [facility] [place] Tricyclic Antidepressants, Urine Negative NEGATIVE [facility] [place] Comment on above: Drug screen results are to be used for medical purposes only. All positive results are unconfirmed. Testing for employment or legal uses should be sent to a reference laboratory for confirmation. Chlamydia/GC DNA, Uron 06-20 Chlamydia Probe, Ur Negative Normal NEG [facility] Comment on above: Result Comment: CHLA [...] nucleic acid target. Performed By: #### U [facility] #### [facility] [address] [place] [address] Flare Stitcher: Dom Fowler MD Gonorrhea Probe, Ur Negative Normal NEG [facility] Comment on above: Result Comment: NEIS [...] Performed By: #### U CGP #### [address] [address] Flare Stitcher: Dom Fowler MD Cult,Urineon 06-20-2019 Cult,Urine Specimen Description .CLEAN CATCH URINE Special Requests NOT REPORTED Culture NO SIGNIFICANT GROWTH Report Status FINAL 06/20/2019 Normal [facility] Comment on above: Performed By: #### H IVCMB, PHEP #### [address] [address] Flare Stitcher: Dom Fowler MD #### CP #### [facility] [address] [place] [address] Flare Stitcher: Shakeel Graham MD HIV Ag/Abon 06-20-2019 HIV Ag/Ab NONREACTIVE Normal [facility] Comment on above: Result Comment: No l aboratory evidence of HIV infection. If acute HIV infection is suspected, consider testing for HIV-1 RNA. Performed By: #### A HCV, HIVCMB #### [address] [address] Flare Stitcher: Dom Fowler MD Hep C Abon 06-20-2019 Hep C Ab REACTIVE Abnormal [facility] Comment on above: Result Comment: The [...] By: #### A HCV, HIVCMB #### [address] [address] Flare Stitcher: Dom Fowler MD Profileon 9 T.pallidum Ab Screen NONREACTIVE Normal [facility] Comment on above: Result Comment: T. pallidum antibodies are not detected. There is no serological evidence of infection with T. pallidum (early primary syphilis cannot be excluded). Retest in 2-4 weeks if syphilis is clinically suspect. Performed By: #### P RENAT #### [address] [place] [address] Flare Stitcher: Dom Fowler MD [facility] [address] [place] [address] Dr. [place], [place] [phone] Flare Stitcher: Shakeel Graham MD Hep B Surf Ag NONREACTIVE Normal [facility] Comment on above: Performed By: #### P RENAT #### [address] [address] Flare Stitcher: Dom Fowler MD [address] [place] [id number] Flare Stitcher: Shakeel Graham MD Rubella Ab, IgG 286.1 IU/mL Normal [facility] Comment on above: Result Comment: REFERENCE RANGE: <5.0 NON-REACTIVE (non-immune) 5.0 TO 9.9 EQUIVOCAL >=10.0 REACTIVE (immune) Performed By: #### P RENAT #### [address] [address] Flare Stitcher: Dom Fowler MD [address] [place], [facility] Flare Stitcher: Shakeel Graham MD HCG, Quanton 06-19-2019 HCG, Quant [id number] IU/L High <5 [facility] Comment on above: Result Comment: Non-preg [...] liver. Performed By: #### B HCG #### [address] [place], [place] [id number] Flare Stitcher: Shakeel Graham MD HCG, Quantitative, on 06-19-2019 hCG Quant [id number] High <5 IU/L [place], [place] Comment on above: Non-preg premeno <=5 Postmeno <=8 Male <=3 If HCG results do not concur with clinical observations, additional testing to confirm results is recommended. Elevated results not associated with may be found in patients with other diseases such as tumors of the germ cells (testis, ovaries, etc.), bladder, pancreas, stomach, lungs, and liver. Interpretation and review of laboratory results Abnormal [place] HIV Screenon 06-19-2019 HIV Ag/Ab NONREACTIVE NONREACTIVE [place], [place] Comment on above: No laboratory eviden ce of HIV infection. If acute HIV infection is suspected, consider testing for HIV-1 RNA. Hepatitis C Antibodyon 06-19 Hepatitis C Ab REACTIVE Abnormal NONREACTIVE [place], [place] Comment on above: The hepatitis C [...] Interpretation and review of laboratory results Abnormal [place] PROFILE Ion 019 Basophils (Bld) [#/Vol] 10*3/uL [place] Basophils/100 WBC (Bld) 1 % 0 - 2 % [place] Differential Type NOT REPORTED [place] Eosinophils (Bld) [#/Vol] 0.09 10*3/uL [place] Eosinophils/100 WBC (Bld) 2 % 1 - 4 % [place] Erythrocyte distribution width (RBC) [Ratio] 15.7 % High 11.8 - 14.4 % [place] Hematocrit (Bld) [Volume fraction] 36.5 % 36.3 - 47.1 % [place] Hemoglobin (Bld) [Mass/Vol] 11.2 g/dL Low 11.9 - 15.1 g/dL [place] Hepatitis B Surface Ag NONREACTIVE NONREACTIVE [place] Immature granulocytes (Bld) [#/Vol] 0 % 0 [place] Immature granulocytes (Bld) [#/Vol] 10*3/uL [place] Interpretation and review of laboratory results Abnormal [place] Lymphocytes (Bld) [#/Vol] 1.98 10*3/uL [place] Lymphocytes/100 WBC (Bld) 46 % High 24 - 43 % [place] MCH (RBC) [Entitic mass] 25.6 pg 25.2 - 33.5 pg [place] MCHC (RBC) [Mass/Vol] 30.7 g/dL 28.4 - 34.8 g/dL [place] MCV (RBC) [Entitic vol] 83.3 fL 82.6 - 102.9 fL [place] Monocytes (Bld) [#/Vol] 0.37 10*3/uL [place] Monocytes/100 WBC (Bld) 9 % 3 - 12 % [place] Platelet mean volume (Bld) [Entitic vol] 11.6 fL 8.1 - 13.5 fL [place] Platelets (Bld) [#/Vol] NOT REPORTED [place] Platelets (Bld) [#/Vol] 196 10*3/uL [place] RBC (Bld) [#/Vol] 4.38 10*6/uL 3.95 - 5.1 1 m/uL [place] RBC morphology finding Nom (Bld) NOT REPORTED [place] Rubella virus IgG Ql (S) 286.1 IU/mL [place] Comment on above: REFERENCE RANGE: <5.0 NON-REACTIVE (non-immune) 5.0 TO 9.9 EQUIVOCAL >=10.0 REACTIVE (immune) Segmented neutrophils/100 WBC (Bld) 42 % 36 - 65 % [place] Segs Absolute 1.75 [place] T. pallidum, IgG NONREACTIVE NONREACTIVE [place] Comment on above: T. pallidum antibodies are not detected. There is no serological evidence of infection with T. pallidum (early primary syphilis cannot be excluded). Retest in 2-4 weeks if syphilis is clinically suspect. WBC (Bld) [#/Vol] 4.2 10*3/uL [place] WBC (Bld) [#/Vol] 0.0 10*3/uL 0.0 per 100 WBC [place], [place] WBC Morphology NOT REPORTED [place], [place] TYPE AND SCREENon 1 ABO/Rh Positive [place] Profileon 9 Abs. Basophil <0.03 Normal 0.00-0.20 [facility] Comment on above: Performed By: #### P RENAT #### [address] [address] Flare Stitcher: Dom Fowler MD [facility] [address] [place] [address] [place] [address] Flare Stitcher: Shakeel Graham MD Abs.Imm.Granulocyte <0.03 Normal 0.00-0.30 [facility] Comment on above: Performed By: #### P RENAT #### [address] [address] Flare Stitcher: Dom Fowler MD [facility] [address] [place] [address] [place] [address] Flare Stitcher: Shakeel Graham MD Abs.Neutrophil (Seg) 1.75 k/uL Normal 1.50-8.10 [facility] Comment on above: Performed By: #### P RENAT #### [address] [address] Flare Stitcher: Dom Fowler MD [facility] [address] [place] [address] [place] [address] Flare Stitcher: Shakeel Graham MD Basophils/100 WBC (Bld) 1 % Normal 0-2 [facility] Comment on above: Performed By: #### P RENAT #### [address] [place] [address] Flare Stitcher: Dom Fowler MD [address] Felix [facility]83 Flare Stitcher: Shakeel Graham MD Eosinophils (Bld) [#/Vol] 0.09 10*3/uL Normal 0.00-0.44 [facility] Comment on above: Performed By: #### P RENAT #### [address] [address] Flare Stitcher: Dom Fowler MD [address] [place] [address] Flare Stitcher: Shakeel Graham MD Eosinophils/100 WBC (Bld) 2 % Normal 1-4 [facility] Comment on above: Performed By: #### P RENAT #### [address] [address] Flare Stitcher: Dom Fowler MD [address] [place] [id number] Flare Stitcher: Shakeel Graham MD Erythrocyte distribution width (RBC) [Ratio] 15.7 % High 11.8-14.4 [facility] Comment on above: Performed By: #### P RENAT #### [address] [address] Flare Stitcher: Dom Fowler MD [address] [place] [address] Flare Stitcher: Shakeel Graham MD Hematocrit (Bld) [Volume fraction] 36.5 % Normal 36.3-47.1 [facility] Comment on above: Performed By: #### P RENAT #### [address] [address] Flare Stitcher: Dom Fowler MD [address] [place] [phone] Flare Stitcher: Shakeel Graham MD Hemoglobin (Bld) [Mass/Vol] 11.2 g/dL Low 11.9-15.1 [facility] Comment on above: Performed By: #### P RENAT #### [address] [place] [address] Flare Stitcher: Dom Fowler MD [facility] [address] [place] [address] Dr. [place] [phone] Flare Stitcher: Shakeel Graham MD Immature granulocytes (Bld) [#/Vol] 0 % Normal 0 [facility] Comment on above: Performed By: #### P RENAT #### [address] [address] Flare Stitcher: Dom Fowler MD [address] [place] [phone] Flare Stitcher: Shakeel Graham MD Lymphocytes (Bld) [#/Vol] 1.98 10*3/uL Normal 1.10-3.70 [facility] Comment on above: Performed By: #### P RENAT #### [address] [address] Flare Stitcher: Dom Fowler MD [address] [place] [phone] Flare Stitcher: Shakeel Graham MD Lymphocytes/100 WBC (Bld) 46 % High 24-43 [facility] Comment on above: Performed By: #### P RENAT #### [address] [address] Flare Stitcher: Dom Fowler MD [address] [place] [phone] Flare Stitcher: Shakeel Graham MD MCH (RBC) [Entitic mass] 25.6 pg Normal 25.2-33.5 [facility] Comment on above: Performed By: #### P RENAT #### [address] [address] Flare Stitcher: Dom Fowler MD [facility] [address] [place] [address] Dr. [place], [place] 4921683 Flare Stitcher: Shakeel Graham MD MCHC (RBC) [Mass/Vol] 30.7 g/dL Normal 28.4-34.8 [facility] Comment on above: Performed By: #### P RENAT #### [address] [id number] Flare Stitcher: Dom Fowler MD [address] [place] [phone] Flare Stitcher: Shakeel Graham MD MCV (RBC) [Entitic vol] 83.3 fL Normal 82.6-102.9 [facility] Comment on above: Performed By: #### P RENAT #### [address] [address] Flare Stitcher: Dom Fowler MD [address] [place] [phone] Flare Stitcher: Shakeel Graham MD Monocytes (Bld) [#/Vol] 0.37 10*3/uL Normal 0.10-1.20 [facility] Comment on above: Performed By: #### P RENAT #### [address] [address] Flare Stitcher: Dom Fowler MD [address] [place] [phone] Flare Stitcher: Shakeel Graham MD Monocytes/100 WBC (Bld) 9 % Normal 3-12 [facility] Comment on above: Performed By: #### P RENAT #### [address] [address] Flare Stitcher: Dom Fowler MD [address] [place] [phone] Flare Stitcher: Shakeel Graham MD Neutrophil (Seg) 42 % Normal 36-65 [facility] Comment on above: Performed By: #### P RENAT #### [address] [address] Flare Stitcher: Dom Fowler MD [facility] [address] [place] [address] [place] [address] Flare Stitcher: Shakeel Graham MD NRBC Automated 0.0 per 100 WBC Normal 0.0 [facility] Comment on above: Performed By: #### P RENAT #### [address] [address] Flare Stitcher: Dom Fowler MD [facility] [address] [place] [address] [place] [address] Flare Stitcher: Shakeel Graham MD Platelet mean volume (Bld) [Entitic vol] 11.6 fL Normal 8.1-13.5 [facility] Comment on above: Performed By: #### P RENAT #### [address] [address] Flare Stitcher: Dom Fowler MD [facility] [address] [place] [address] [place] [address] Flare Stitcher: Shakeel Graham MD Platelets (Bld) [#/Vol] 196 10*3/uL Normal 138-453 [facility] Comment on above: Performed By: #### P RENAT #### [address] [address] Flare Stitcher: Dom Fowler MD [facility] [address] [place] [address] [place] [address] Flare Stitcher: Shakeel Graham MD RBC (Bld) [#/Vol] 4.38 10*6/uL Normal 3.95-5.11 [facility] Comment on above: Performed By: #### P RENAT #### [address] [address] Flare Stitcher: Dom Fowler MD [facility] [address] [place] [address] [place] [address] Flare Stitcher: Shakeel Graham MD WBC (Bld) [#/Vol] 4.2 10*3/uL Normal 3.5-11.3 [facility] Comment on above: Performed By: #### P RENAT #### [address] [address] Flare Stitcher: Dom Fowler MD [address] [place] [address] Flare Stitcher: Shakeel Graham MD Auto Diff Performed NOT REPORTED Normal [facility] Comment on above: Performed By: #### P RENAT #### [address] [address] Flare Stitcher: Dom Fowler MD [address] [place] [address] Flare Stitcher: Shakeel Graham MD Platelets (Bld) [#/Vol] NOT REPORTED Normal [facility] Comment on above: Performed By: #### P RENAT #### [address] [address] Flare Stitcher: Dom Fowler MD [address] [place] [address] Flare Stitcher: Shakeel Graham MD RBC morphology finding Nom (Bld) NOT REPORTED Normal [facility] Comment on above: Performed By: #### P RENAT #### [address] [address] Flare Stitcher: Dom Fowler MD [address] [place] [address] Flare Stitcher: Shakeel Graham MD WBC Morphology NOT REPORTED Normal [facility] Comment on above: Performed By: #### P RENAT #### [address] [address] Flare Stitcher: Dom Fowler MD [facility] [address] [place], [place] 6780583 Flare Stitcher: Shakeel Graham MD Type + Scrnon 06-19 Type + Scrn Negative [facility] Comment on above: Performed By: #### P RTYS #### [facility] [address] [place], [place] 5534983 Flare Stitcher: Shakeel Graham MD Toxicology Scree, Urineon Amphetamine(s),Ur Negative Normal NEG [facility] Comment on above: Performed By: #### C PDAU #### [facility] [address] [place], [place] [id number] Flare Stitcher: Shakeel Graham MD Barbiturate(s),Ur Negative Normal NEG [facility] Comment on above: Performed By: #### C PDAU #### [facility] [address] [place], [place] 0277383 Flare Stitcher: Shakeel Graham MD Benzodiazepine(s) Negative Normal [facility] Comment on above: Performed By: #### C PDAU #### [facility] [address] [place], [place] 7020483 Flare Stitcher: Shakeel Graham MD Buprenorphrine, Ur Negative Normal NEG [facility] Comment on above: Performed By: #### C PDAU #### [facility] [address] [place], [place] 5173383 Flare Stitcher: Shakeel Graham MD Cannabinoid(s),Ur Negative Normal NEG [facility] Comment on above: Performed By: #### C PDAU #### [facility] [address] [place], [place] 0361183 Flare Stitcher: Shakeel Graham MD Cocaine Metabolite Negative Normal [facility] Comment on above: Performed By: #### C PDAU #### [facility] [address] [place], [place] 7709483 Flare Stitcher: Shakeel Graham MD Methadone Ql (U) Negative Normal NEG [facility] Comment on above: Performed By: #### C PDAU #### [facility] [address] [place] [address] Flare Stitcher: Shakeel Graham MD Methamphetamine, Ur Negative Normal NEG [facility] Comment on above: Performed By: #### C PDAU #### [facility] [address] [place], [place] 0467083 Flare Stitcher: Shakeel Graham MD Opiate(s), Ur Negative Normal NEG [facility] Comment on above: Performed By: #### C PDAU #### [facility] [address] [place], [place] [phone] Flare Stitcher: Shakeel Graham MD Oxycodone, Urine Negative Normal NEG [facility] Comment on above: Performed By: #### C PDAU #### [facility] [address] [place], [place] 5404583 Flare Stitcher: Shakeel Graham MD Phencyclidine, Ur Negative Normal NEG [facility] Comment on above: Performed By: #### C PDAU #### [facility] [address] [place], [place] 2769083 Flare Stitcher: Shakeel Graham MD Propoxyphene,Urine Negative Normal NEG [facility] Comment on above: Performed By: #### C PDAU #### [facility] [address] [place], [place] 3371883 Flare Stitcher: Shakeel Graham MD Tricyclic antidepressants Screen Ql (U) Positive Abnormal NEG [facility] Comment on above: Result Comment: Drug screen results are to be used for medical purposes only. All positive results are unconfirmed. Testing for employment or legal uses should be sent to a reference laboratory for confirmation. Performed By: #### C PDAU #### [facility] [address] [place] [address] Flare Stitcher: Shakeel Graham MD Interpretive Info NOT REPORTED Normal [facility] Comment on above: Performed By: #### C PDAU #### [facility] [address] [place] [address] Flare Stitcher: Shakeel Graham MD MDMA, Urine NOT REPORTED Normal NEG [facility] Comment on above: Performed By: #### C PDAU #### [facility] [address] [place] [address] Flare Stitcher: Shakeel Graham MD Urine Drug Screen, Magda [...] [place] MDMA, Urine NOT REPORTED NEGATIVE [facility] [place] Methadone Screen, [...] Tricyclic Antidepressants, Urine Positive Abnormal NEGATIVE [facility] [place] Comment on above: Drug screen results are to be used for medical purposes only. All positive results are unconfirmed. Testing for employment or legal uses should be sent to a reference laboratory for confirmation. HIV Ag/Abon 05-10-2019 HIV Ag/Ab NONREACTIVE Normal NR [facility] Comment on above: Result Comment: No l aboratory evidence of HIV infection. If acute HIV infection is suspected, consider testing for HIV-1 RNA. Performed By: #### H IVCMB, PHEP #### [facility] [address] [place] [address] Flare Stitcher: Dom Fowler MD #### CP #### [facility] [address] [place] [address] Dr[address] [place], [place] [id number] Flare Stitcher: Shakeel Graham MD Hepatitis [facility] 05-10 Hep A Ab,IgM NONREACTIVE Normal [facility] Comment on above: Performed By: #### H IVCMB, PHEP #### [address] [address] Flare Stitcher: Dom Fowler MD #### CP #### [address] [place], [place] 2911983 Flare Stitcher: Shakeel Graham MD Hep B Core Ab,IgM NONREACTIVE Normal [facility] Comment on above: Performed By: #### H IVCMB, PHEP #### [address] [address] Flare Stitcher: Dom Fowler MD #### CP #### [facility] [address] [place] [address] Dr[address] [place], [place] 5326483 Flare Stitcher: Shakeel Graham MD Hep B Surf Ag NONREACTIVE Normal [facility] Comment on above: Performed By: #### H IVCMB, PHEP #### [address] [address] Flare Stitcher: Dom Fowler MD #### CP #### [address] [place], [place] 0167883 Flare Stitcher: Shakeel Graham MD Hep C Ab REACTIVE Abnormal [facility] Comment on above: Result Comment: The [...] By: #### H IVCMB, PHEP #### [address] [address] Flare Stitcher: Dom Fowler MD #### CP #### [address] [place], [place] [phone] Flare Stitcher: Shakeel Graham MD Comp Metabolic Profon 2018 (cont.) Normal [facility] Comment on above: Result Comment: Aver age GFR for 20-29 years old: 116 mL/min/1.73sq m Chronic Kidney Disease: <60 mL/min/1.73sq m Kidney failure: <15 mL/min/1.73sq m eGFR calculated using average adult body mass. Additional eGFR calculator available at: http://www.[employer]/multiple_crcl_2012.htm Performed By: #### H IVCMB, PHEP #### [address] [address] Flare Stitcher: Dom Fowler MD #### CP #### [facility] [address] [place] [address] Dr[address] [place], [place] [id number] Flare Stitcher: Shakeel Graham MD Albumin [Mass/Vol] 4.3 g/dL Normal 3.5-5.2 [facility] Comment on above: Performed By: #### H IVCMB, PHEP #### [address] [address] Flare Stitcher: Dom Fowler MD #### CP #### [facility] [address] [place] [address] Dr[address] [place], [place] 8473483 Flare Stitcher: Shakeel Graham MD Albumin/Globulin [Mass ratio] 1.4 {ratio} Normal 1.0-2.5 [facility] [facility] Comment on above: Performed By: #### H IVCMB, PHEP #### [address] [address] Flare Stitcher: Dom Fowler MD #### CP #### [facility] [address] [place], [place] [id number] Flare Stitcher: Shakeel Graham MD Alkaline Phos 50 U/L Normal 35-104 [facility] Comment on above: Performed By: #### H IVCMB, PHEP #### [facility] [address] [place] [address] Flare Stitcher: Dom Fowler MD #### CP #### [facility] [address] [place] [address] Dr. [place], [place] [id number] Flare Stitcher: Shakeel Graham MD ALT [Catalytic activity/Vol] 9 U/L Normal 5-33 [facility] Comment on above: Performed By: #### H IVCMB, PHEP #### [address] [address] Flare Stitcher: Dom Fowler MD #### CP #### [address] [place], [place] [id number] Flare Stitcher: Shakeel Graham MD Anion gap [Moles/Vol] 8 mmol/L Low 9-17 [facility] Comment on above: Performed By: #### H IVCMB, PHEP #### [address] [address] Flare Stitcher: Dom Fowler MD #### CP #### [address] [place], [place] [id number] Flare Stitcher: Shakeel Graham MD AST [Catalytic activity/Vol] 15 U/L Normal <32 [facility] Comment on above: Performed By: #### H IVCMB, PHEP #### [address] [address] Flare Stitcher: Dom Fowler MD #### CP #### [address] [place], [place] [id number] Flare Stitcher: Shakeel Graham MD Bilirubin Ql (U) 0.31 mg/dL Normal 0.3-1.2 [facility] Comment on above: Performed By: #### H IVCMB, PHEP #### [facility] [address] [place] [address] Flare Stitcher: Dom Fowler MD #### CP #### [facility] [address] [place], [place] [id number] Flare Stitcher: Shakeel Graham MD BUN/CRE Ratio 20 Normal 9-20 [facility] Comment on above: Performed By: #### H IVCMB, PHEP #### [address] [address] Flare Stitcher: Dom Fowler MD #### CP #### [facility] [address] [place] [id number] Flare Stitcher: Shakeel Graham MD Calcium [Mass/Vol] 9.4 mg/dL Normal 8.6-10.4 [facility] Comment on above: Performed By: #### H IVCMB, PHEP #### [address] [address] Flare Stitcher: Dom Fowler MD #### CP #### [facility] [address] [place] [address] Dr. [place], [place] [phone] Flare Stitcher: Shakeel Graham MD Chloride [Moles/Vol] 102 mmol/L Normal 98-107 [facility] Comment on above: Performed By: #### H IVCMB, PHEP #### [address] [address] Flare Stitcher: Dom Fowler MD #### CP #### [facility] [address] [place], [place] [phone] Flare Stitcher: Shakeel Graham MD CO2 [Moles/Vol] 28 mmol/L Normal 20-31 [facility] Comment on above: Performed By: #### H IVCMB, PHEP #### [address] [address] Flare Stitcher: Dom Fowler MD #### CP #### [facility] [address] [place] [address] Flare Stitcher: Shakeel Graham MD Creatinine [Mass/Vol] 0.92 mg/dL High 0.50-0.90 [facility] Comment on above: Performed By: #### H IVCMB, PHEP #### [address] [address] Flare Stitcher: Dom Fowler MD #### CP #### [facility] [address] [place], [place] [phone] Flare Stitcher: Shakeel Graham MD GFR, Amer >60 Normal >60 [facility] Comment on above: Performed By: #### H IVCMB, PHEP #### [address] [address] Flare Stitcher: Dom Fowler MD #### CP #### [facility] [address] [place] [address] Dr. [place], [place] [phone] Flare Stitcher: Shakeel Graham MD GFR,non Amer >60 Normal >60 [facility] Comment on above: Performed By: #### H IVCMB, PHEP #### [address] [address] Flare Stitcher: Dom Fowler MD #### CP #### [facility] [address] [place], [place] [phone] Flare Stitcher: Shakeel Graham MD Glucose [Mass/Vol] 91 mg/dL Normal 70-99 [facility] Comment on above: Performed By: #### H IVCMB, PHEP #### [address] [address] Flare Stitcher: Dom Fowler MD #### CP #### [facility] [address] [place] [address] Dr. [place], [place] [phone] Flare Stitcher: Shakeel Graham MD Potassium [Moles/Vol] 4.3 mmol/L Normal 3.7-5.3 [facility] Comment on above: Performed By: #### H IVCMB, PHEP #### [address] [address] Flare Stitcher: Dom Fowler MD #### CP #### [facility] [address] [place] [address] Dr. [place], [place] [phone] Flare Stitcher: Shakeel Graham MD Protein [Mass/Vol] 7.4 g/dL Normal 6.4-8.3 [facility] Comment on above: Performed By: #### H IVCMB, PHEP #### [address] [id number] Flare Stitcher: Dom Fowler MD #### CP #### [facility] [address] [place] [address] [place], [place] [phone] Flare Stitcher: Shakeel Graham MD Sodium [Moles/Vol] 138 mmol/L Normal 135-144 [facility] Comment on above: Performed By: #### H IVCMB, PHEP #### [address] [address] Flare Stitcher: Dom Fowler MD #### CP #### [address] [place], [place] [phone] Flare Stitcher: Shakeel Graham MD Staging: Normal [facility] Comment on above: Result Comment: Stag e 1: Some kidney damage normal GFR Stage 2: Mild kidney damage GFR 60-89 Stage 3: Moderate kidney damage GFR 30-59 Stage 4: Severe kidney damage GFR 15-29 Stage 5: Severe kidney damage GFR <15 ESRD - chronic treatment by dialysis or transplant Performed By: #### H IVCMB, PHEP #### [address] [place] [id number] Flare Stitcher: Dom Fowler MD #### CP #### [facility] [address] [place] [address] Flare Stitcher: Shakeel Graham MD Urea nitrogen [Mass/Vol] 18 mg/dL Normal 6-20 [facility] Comment on above: Performed By: #### H IVC, PHEP #### [facility] [address] [place], [place] [phone] Flare Stitcher: Dom Fowler MD #### CP #### [facility] [address] [place] [address] Flare Stitcher: Shakeel Graham MD [facility] 05-09-2019 Albumin [Mass/Vol] 4.3 g/dL 3.5 - 5.2 g/dL [place], [place] Albumin/Globulin [Mass ratio] 1.4 {ratio} [place], [place] ALP [Catalytic activity/Vol] 50 U/L 35 - 104 U/L [place] ALT [Catalytic activity/Vol] 9 U/L 5 - 33 U/L [place] Anion gap [Moles/Vol] 8 mmol/L Low 9 - 17 mmol/L [place] AST [Catalytic activity/Vol] 15 U/L <32 [place] Bilirubin Ql (U) 0.31 mg/dL 0.3 - 1.2 mg/dL [place], [place] Bun/Cre Ratio 20 [place] Calcium [Mass/Vol] 9.4 mg/dL 8.6 - 10. 4 mg/dL [place] Chloride [Moles/Vol] 102 mmol/L 98 - 107 mmol/L [place] CO2 [Moles/Vol] 28 mmol/L 20 - 31 mmol/L [place] Creatinine [Mass/Vol] 0.92 mg/dL High 0.5 - 0.9 mg/dL [place] GFR >60 >60 mL/min [place], [place] GFR Non- >60 >60 mL/min [place] Glucose [Mass/Vol] 91 mg/dL 70 - 99 mg/dL [place], [place] Interpretation and review of laboratory results Abnormal [place] Potassium [Moles/Vol] 4.3 mmol/L 3.7 - 5.3 mmol/L [place] Protein [Mass/Vol] 7.4 g/dL 6.4 - 8.3 g/dL [place] Sodium [Moles/Vol] 138 mmol/L 135 - 144 mmol/L [place] Urea nitrogen [Mass/Vol] 18 mg/dL 6 - 20 mg/dL [place] Hepatitis Panel, Acuteon HAV IgM IA Qn (S) NONREACTIVE NONREACTIVE [place] Hep B Core Ab, IgM NONREACTIVE NONREACTIVE [place] Hepatitis B Surface Ag NONREACTIVE NONREACTIVE [place] Hepatitis C Ab REACTIVE Abnormal NONREACTIVE [place], [place] Comment on above: The hepatitis C [...] Interpretation and review of laboratory results Abnormal [place] Metabolic Panelon 05-09-2019 GFR/1.73 sq M predicted among non-blacks MDRD (S/P/Bld) [Vol rate/Area] [place] Comment on above: Average GFR for 20-2 9 years old: 116 mL/min/1.73sq m Chronic Kidney Disease: <60 mL/min/1.73sq m Kidney failure: <15 mL/min/1.73sq m eGFR calculated using average adult body mass. Additional eGFR calculator available at: http://www.[employer]/multiple_crcl_2012.htm Stage 1: Some kidney damage normal GFR Stage 2: Mild kidney damage GFR 60-89 Stage 3: Moderate kidney damage GFR 30-59 Stage 4: Severe kidney damage GFR 15-29 Stage 5: Severe kidney damage GFR <15 ESRD - chronic treatment by dialysis or transplant Drug Scr, Abuse, Uron 2017 Amphetamine(s),Ur Positive Abnormal NEG [facility] Comment on above: Result Comment: (Pos itive cutoff 1000 ng/mL) Performed By: #### D AU ####[address] [address] Barbiturate(s),Ur Negative Normal NEG [facility] Comment on above: Result Comment: (Pos itive cutoff 200 ng/mL) Performed By: #### D AU ####[address] [address] Base excess Negative Normal NEG [facility] Comment on above: Result Comment: (Pos itive cutoff 300 ng/mL) Performed By: #### D AU ####[address] [address] Benzodiazepine(s) Negative Normal NEG [facility] Comment on above: Result Comment: (Pos itive cutoff 200 ng/mL) Performed By: #### D AU ####[address] [address] Cannabinoid(s),Ur Negative Normal NEG [facility] Comment on above: Result Comment: (Pos itive cutoff 50 ng/mL) Performed By: #### D AU ####[address] [address] Interpretive Info Assay provides medical screening only. The absence of expected drug(s) and/or Normal [facility] Comment on above: Result Comment: meta bolite(s) may indicate diluted or adulterated urine, limitations of testing or timing of collection.Testing for legal purposes should be confirmed by another method. To request confirmation of test result, please call the lab within 7 days of sample submission.Performed at [address] [place] [address] Performed By: #### D AU ####[address] [address] Opiate(s), Ur Negative Normal NEG [facility] Comment on above: Result Comment: (Pos itive cutoff 300 ng/mL) Performed By: #### D AU ####[address] [address] Oxycodone, Urine Negative Normal NEG [facility] Comment on above: Result Comment: (Pos itive cutoff 100 ng/mL) Performed By: #### D AU ####[address] [address] Phencyclidine, Ur Negative Normal NEG [facility] Comment on above: Result Comment: (Pos itive cutoff 25 ng/mL) Performed By: #### D AU ####[address] [address] Urine, methadone presence Negative Normal NEG [facility] Comment on above: Result Comment: (Pos itive cutoff 300 ng/mL) Performed By: #### D AU ####[address] [address] Buprenorphrine, Ur NOT REPORTED Normal NEG [facility] Comment on above: Performed By: #### D AU ####[address] [address] MDMA, Urine NOT REPORTED Normal NEG [facility] Comment on above: Performed By: #### D AU ####[address] [place] [address] Methamphetamine, Ur NOT REPORTED Normal NEG [facility] Comment on above: Performed By: #### D AU ####[address] [place] [address] Propoxyphene,Urine NOT REPORTED Normal NEG [facility] Comment on above: Performed By: #### D AU ####[address] [address] Urine, tricyclic antidepressants NOT REPORTED Normal NEG [facility] Comment on above: Performed By: #### D AU ####[address] [address] Lipid Profileon 11-05-2017 Cholesterol 137 mg/dL Normal <200 [facility] Comment on above: Result Comment: Chol esterol Guidelines: <200 Desirable 200-240 Borderline >240 Undesirable Performed By: #### L IPR ####[address] [address] Cholesterol to HDL Ratio 4.3 {ratio} Normal <5 [facility] Comment on above: Performed By: #### L IPR ####[address] [address] HDL Cholesterol 32 mg/dL Low >40 [facility] Comment on above: Result Comment: HDL Guidelines: <40 Undesirable 40-59 Borderline >59 Desirable Performed By: #### L IPR ####[address] [address] LDL Cholesterol 82 mg/dL Normal 0-130 [facility] Comment on above: Result Comment: LDL Guidelines: <100 Desirable 100-129 Near to/above Desirable 130-159 Borderline >159 UndesirableDirect (measured) LDL and calculated LDL are not interchangeable tests. Performed By: #### L IPR ####[address] [address] Triglyceride 113 mg/dL Normal <150 [facility] Comment on above: Result Comment: Trig lyceride Guidelines: <150 Desirable 150- 199 Borderline 200-499 High >499 Very high Based on AHA Guidelines for fasting triglyceride, June 2012.Performed at [facility] [address] [place] [address] Performed By: #### L IPR ####[facility] [place] [place] [address] Cholesterol in VLDL mass conc NOT REPORTED Normal 10-16 [facility] Comment on above: Performed By: #### L IPR ####[facility] [place] [place] [address] Encounters Encounter Date Encounter Type Care Provider [...] ambulatory DR RODO MENCHACA Facility:H1 Start: 10-25-2022 [facility] Facility:H1 Start: 10-11-2022 End: 10-11-[address] CHRISTINE SÁNCHEZ Facility:H1 Start: 09-12-2022 End: 09-13-[address] YOUSIF APARICIO . Facility:H1 Start: 08-19-2022 Encounter for preprocedural laboratory examination DR YOUSIF APARICIO . [facility] Start: 08-18-2022 End: 08-18-[address] [...] Patient encounter procedure ANTHONY PABON [facility] Start: 04-26-2020 End: 04-26-2020 Subsequent hospital visit by physician Rochelle ALFRED Laboratory Start: 03-16-2020 End: 03-17-2020 Emergency department patient visit [place] [facility] Start: 11-20-2019 End: 11-21-2019 Patient encounter procedure [place] [facility] Start: 11-20-2019 End: 11-20-2019 Subsequent hospital visit by physician Rochelle ALFRED Laboratory Comment on above: History of miscarria ge, currently ; Amenorrhea; Positive urine test; Encounter for supervision of normal in first trimester, unspecified ; Spotting in early Start: 06-19-2019 End: 06-20-2019 Patient encounter procedure [place] Judith [facility] Start: 06-19-2019 End: 06-19-2019 Subsequent hospital visit by physician Rochelle ALFRED Laboratory Comment on above: Amenorrhea; Positive urine test; Encounter for supervision of normal in first trimester, unspecified ; Spotting in early Start: 05-09-2019 End: 05-10-2019 Patient encounter procedure KADI SCHROEDER [facility] Start: 05-09-2019 End: 05-09-2019 Subsequent hospital visit by physician Rochelle ALFRED Laboratory Start: 11-05-2017 End: 11-07-2017 Evaluation and management of inpatient ANGELO SPICER [facility] Procedures Date Procedure Procedure Detail Performing Clinician Start: 04-26-2020 Acute hepatitis panel D DELLA SCHROEDER Start: 04-26-2020 Antibody hiv-1&hiv-2 single result KADI DESTINY Start: 04-26-2020 Blood count complete automated KADI DESTINY Start: 04-26-2020 Comprehensive metabo lic panel KADI DESTINY Start: 04-26-2020 Gonadotropin chorion ic qualitative KADI DESTINY Start: 04-26-2020 Iadna hepatitis c qu ant & reverse electrical tryout person KADI DESTINY Start: 04-26-2020 Acute hepatitis panel [...] VIKA SPICER Start: 11-05-2017 Lipid panel ANGELO ASSEMBLY TECHNICIAN Start: 11-05-2017 DIET GENERAL ANGELO ASSEMBLY TECHNICIAN Start: 11-05-2017 FULL CODE ANGELO ASSEMBLY TECHNICIAN Start: 11-05-2017 IP CONSULT TO HISTOR Y [...] deficiency anemia type Expected: 12/12/2021, Expires: 02/11/2022 [facility] Work Phone: Comment on above: Expected: 12/12/2021 , Expires: 02/11/2022 Start: 05-18-2021 Influenza vaccination INFLUENZA (#1) [facility] Start: 06-26-2020 Cervical cancer screen Cervical can[facility] er [place] Comment on above: Postponed from 01/11 (Not Indicated) Start: 06-26-2020 Screening for malign ant neoplasm of cervix Cervical cancer [place] Comment on above: Postponed from 01/11 (Not Indicated) Start: 05-18-2020 Influenza vaccination Flu vaccine (# 1) [facility] Start: 11-21-2019 End: 11-21-2019 Ancillary Procedure 11/21/2019 Ancillary Procedure Obstetrics and Gynecology [facility] Start: 06-26-2019 End: 06-26-2019 Routine 06/26/2019 Routine Obstetrics and Gynecology Georgette Leung APRN - [address] [place] [address] [phone] [facility] [employer] Start: 05-18-2019 Influenza vaccination Flu vaccine (# 1) [place] Start: 2015 Cervical cancer screen Cervical canc er [place] Start: 2015 PAP TESTING PAP TESTING [facility] Start: 2013 DTaP/Tdap/Td vaccine (1 - Tdap) DTaP/Tdap/Td vaccine (1 - Tdap) [place] Start: 2013 Urine microalbumin profile DTAP,TDAP,TD (1 - Tdap) [facility] Start: 01-12-2012 HEPATITIS C SCREENING HEPATITIS C SC REENING [facility] Start: 01-12-2012 HIV SCREENING HIV SCREENING [facility] Start: 2009 HPV vaccine (1 - Fem larissa 3-dose series) HPV vaccine (1 - Female 3-dose series) [place] Start: 2007 Varicella Vaccine (1 of 2 - 13+ 2-dose series) Varicella Vaccine (1 of 2 - 13+ 2-dose series) [place] Start: 2006 Adult depression screening assessment DEPRESSION SCREENING [facility] Start: 2005 DTaP/Tdap/Td vaccine (1 - Tdap) DTaP/Tdap/Td vaccine (1 - Tdap) [place] Start: 2005 HPV vaccine (1 - 2-d ose series) HPV vaccine (1 - 2-dose series) [place] Start: 2005 HPV vaccine (1 - Fem larissa 2-dose series) HPV vaccine (1 - Female 2-dose series) [place] Start: 01-12-2000 Pneumococcal 0-64 ye ars Vaccine (1 of 1 - PPSV23) Pneumococcal 0-64 years Vaccine (1 of 1 - PPSV23) [place] Start: 1999 COVID-19 VACCINE (1) COVID-19 VACCIN E (1) [facility] Start: 1995 Varicella vaccine (1 of 2 - 2-dose childhood series) Varicella vaccine (1 of 2 - 2-dose childhood series) [place] End: 11-20-2019 Bacteria identified Cx Nom (U) Urine Culture Microbiology Routine Amenorrhea Positive urine test Encounter for supervision of normal in first trimester, unspecified 1 Occurrences starting 11/20/2019 until 11/20/2019 [place] Comment on above: 1 Occurrences starti ng 11/20/2019 until 11/20/2019 Bacteria identified Cx Nom (U) [place] End: 06-19-2019 Bacteria identified Cx Nom (U) Urine Culture Microbiology Routine Amenorrhea Positive urine test Encounter for supervision of normal in first trimester, unspecified 1 Occurrences starting 06/19/2019 until 06/19/2019 [place] Comment on above: 1 Occurrences starti ng 06/19/2019 until 06/19/2019 End: 11-20-2019 C.trachomatis N.gonorrhoeae DNA, Urine C.trachomatis N.gonorrhoeae DNA, Urine Microbiology Routine Amenorrhea Positive urine test Encounter for supervision of normal in first trimester, unspecified 1 Occurrences starting 11/20/2019 until 11/20/2019 [place] Comment on above: 1 Occurrences starti ng 11/20/2019 until 11/20/2019 C.trachomatis N.gonorrhoeae DNA, Urine [place] End: 06-19-2019 C.trachomatis N.gonorrhoeae DNA, Urine C.trachomatis N.gonorrhoeae DNA, Urine Microbiology Routine Amenorrhea Positive urine test Encounter for supervision of normal in first trimester, unspecified 1 Occurrences starting 06/19/2019 until 06/19/2019 [place] Comment on above: 1 Occurrences starti ng 06/19/2019 until 06/19/2019 End: 04-26-2020 Hepatitis C RNA, quantitative, PCR Hepatitis C RNA, quantitative, PCR Lab Routine Once for 1 Occurrences starting 04/26/2020 until 04/26/2020 [place] Comment on above: Once for 1 Occurrenc es starting 04/26/2020 until 04/26/2020 Hepatitis C RNA, quantitative, PCR Hepatitis C RNA, quantitative, PCR Lab Routine 04/26/2020 7:30 AM EDT [place] End: 05-09-2019 HIV Screen HIV Screen Lab Routine Once for 1 Occurrences starting 05/09/2019 until 05/09/2019 [facility] Comment on above: Once for 1 Occurrenc es starting 05/09/2019 until 05/09/2019 HIV Screen HIV Screen Lab R outine 05/09/2019 2:53 PM EDT [facility] PRO[facility] PROF ILE I Lab Routine Amenorrhea Positive urine test Encounter for supervision of normal in first trimester, unspecified 11/20/2019 12:26 PM EST [facility] Payers Date Payer Category Payer Medicaid [place] [employer] [place] [employer] [id number] 2020-Present [phone] [facility] [place] [address] Medicaid [id number] 2020 Unknown 2016 Unknown [facility] xxxxxxxxxxxx 2016-Present [phone] [facility] [place] [address] xxxxxxxxxxxx [id number] 1994 Unknown [id number] [id number] 1994 Unknown [id number] 2.16.840.1.732741.3.579.2.173 1994 Unknown [id number] 2.16.840.1.527012.3.579.2.173 1994 Unknown [id number] 2.16.840.1.851562.3.579.2.173 1994 Unknown [id number] 2.16.840.1.913508.3.579.2.173 1994 Unknown [id number] 2.16.840.1.156043.3.579.2.593 1994 Unknown [id number] 2.16.840.1.620676.3.579.2.593 1994 Unknown [id number] 2.16.840.1.033447.3.579.2.593 1994 Unknown [id number] 2.16.840.1.727332.3.579.2.593 1994 Unknown [id number] 2.16.840.1.672296.3.579.2.593 1994 Unknown [id number] 2.16.840.1.459910.3.579.2.593 1994 Unknown [id number] 2.16.840.1.145977.3.579.2.593 1994 Unknown [id number] 2.16.840.1.076022.3.579.2.593 1994 Unknown [id number] 2.16.840.1.331595.3.579.2.593 1994 Unknown [id number] 2.16.840.1.757945.3.579.2.593 1994 Unknown [id number] 2.16.840.1.274615.3.579.2.125 9 1994 Unknown [id number] 2.16.840.1.507216.3.579.2.125 9 1994 Unknown [id number] 2.16.840.1.062811.3.579.2.125 9 1994 Unknown [id number] 2.16.840.1.833266.3.579.2.125 9 1959 Unknown [id number] Social History Date Type Detail Facility Start: 11-05-2017 End: 10-28-2021 Tobacco smoking status WAIS Never smoker [facility] Start: 11-05-2017 End: 06-19-2019 Alcohol intake No [place], [place] Start: 1994 Sex Assigned At Not on file [place] Start: 06-19-2019 End: 11-20-2019 Tobacco smoking status NHIS Current every day smoker [facility] Start: 06-19-2019 End: 11-20-2019 Cigarettes smoked current (pack per day) - Reported [facility] Start: 11-20-2019 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 PREOPERATIVE DIAGNOSIS: Missed . POSTOPERATIVE DIAGNOSIS: Missed . ANESTHESIA: General. SURGEON: Yousif Aparicio D.O. LIQUOR RUNNER: None. BLOOD LOSS: 75 mL. URINE OUTPUT: [...] products of conception were removed using a 10-[place] Islander suction curette. Excellent hemostasis was noted. The patient tolerated the procedure well. Sponge, lap, and needle counts were correct x 2. All instruments were then removed from the patient's vagina. The patient was taken to the Recovery Room in stable condition. ?? [facility] Note 12-12-2021 Telephone Encounter - December - 12/12/2021 11:16 AM EDT Note Date & Type Note Facility 12-12-2021 Miscellaneous Notes Pleases sign pending new cbc order. Thanks, Angelia Almazan MA documented in this encounter [facility] Progress note 11-08-2021 Note Date & Type Note Facility 11-08-2021 Note HNO ID: [id number] Author: King Suazo MD Service: ? Author [...] shortness of breath, and is seen at [facility]. Labs revealed a hemoglobin of [...] MUSCULOSKELETAL: Neg (more content not included)... [facility] Evaluation note Note Date & Type Note Facility Evaluation note Diagnosis Iron deficiency anemia, unspecified iron deficiency anemia type- Primary documented in this encounter [facility] Summary Purpose Family History No Family History Records FoundNo Family History Records FoundNo Family History Records FoundNo Family History Records FoundNo Family History Records FoundNo Family History Records Found Advance Directives No Advanced Directives Records FoundDocuments on File Type Date Recorded Patient Capacity Planning Manager Expl anation Advance Directives and Living Will Power of Home Extension Agent Latest Code Status on File Code Status [...] section and content) DATE CREATED AUTHOR 03/08/2018 [facility] DATE CREATED AUTHOR AUTHOR'S ORGANIZ ATION 04/08/2020 [facility] DATE CREATED AUTHOR AUTHOR'S ORGANIZ ATION 04/28/2020 [facility] DATE CREATED AUTHOR AUTHOR'S ORGANIZ ATION 12/13/2021 [facility] DATE CREATED AUTHOR AUTHOR'S ORGANIZ ATION 12/25/2022 [facility] DATE CREATED AUTHOR AUTHOR'S CHERIE MARTINEZ 10/10/2023 [facility] Specialists EPIC Source Comments (unrecognize d section and content) In the event this informatio n is protected by the Federal Confidentiality of Alcohol and Drug Abuse Patient Records regulations: The Federal rules restrict any use of the information to criminally investigate or prosecute any alcohol or drug abuse patient.[facility] the event this information is protected by the Federal Confidentiality of Alcohol and Drug Abuse Patient Records regulations: The Federal rules restrict any use of the information to criminally investigate or prosecute any alcohol or drug abuse patient.[facility] Reason for Visit (unrecogniz ed section and content) Reason Comments Lab Orders Care Teams (unrecognized sec tion and content) Habilitative Interventionist Relationship Specialty Start Date End Date Rodo Menchaca [address] [place] [address] PCP - General Family Practice 11/08/21 FOR [...] BE BASED ON THE PRIMARY CLINICAL RECORDS. [facility] [employer] provides no warranty or guarantee of the accuracy or completeness of information in this document.
[2023-10-29 23:28] VITALS: BP 141/76; PULSE 94
[2023-10-29 23:43] VITALS: BP 135/75; PULSE 100
[2023-10-29 23:58] VITALS: BP 141/87; PULSE 79
[2023-10-30] VITALS (11 sets, daily range): BP systolic 130–150; BP diastolic 75–92; PULSE 77–100; RESP 16–18; TEMP 36.1–36.8
[2023-10-30] MEDS: IBUPROFEN 600 MG TABLET PO ×3 (01:31→23:52)
[2023-10-30 01:40] LABS: Hemoglobin 10.1 g/dL (12.0-16.0); Mean Corpuscular HGB Conc 29.7 g/dL (29.9-35.2); Mean Corpuscular Hemoglobin 22.6 pg (26.7-34.0); Mean Corpuscular Volume 76.2 fL (81.0-99.0); Mean Platelet Volume 11.7 fL (9.5-13.5); Platelet Count 325 10^3/uL (150-450); Red Blood Count 4.46 10^6/uL (4.20-5.40); Red Cell Distribution Width 15.9 % (11.0-15.0)
[2023-10-30 06:27] LABS: Amphetamine Screen Urine POSITIVE (NEGATIVE); Barbiturates Screen Urine NEGATIVE (NEGATIVE); Benzodiazepines Screen Urine NEGATIVE (NEGATIVE); Buprenorphine Screen Urine NEGATIVE (NEGATIVE); Cannabinoid Screen Urine NEGATIVE (NEGATIVE); Cocaine Screen Urine NEGATIVE (NEGATIVE); Methadone Screen Urine NEGATIVE (NEGATIVE); Methamphetamines Screen Urine POSITIVE (NEGATIVE); Opiate Screen Urine NEGATIVE (NEGATIVE); Oxycodone Screen Urine NEGATIVE (NEGATIVE); Phencyclidine Screen Urine NEGATIVE (NEGATIVE); Tricyclic Antidepressant Urine NEGATIVE (NEGATIVE)
--- NOTE | 2023-10-30 08:01 | P.OBPN_ITS ---
OB - PN: Subj Subjective Patient comments: no complaints Disputanta status: doing well and bottle Disputanta feeding status: exclusively bottle feeding Narrative: patient history of home delivery last evening at approximately 10:30pm. Arrived to [facility] via squad with baby and placenta delivered. Upon exam today, patient has labial bruising, small bilateral labial lacerations that are not bleeding, small 1st degree that is not bleeding. No edema, bleeding, odor noted with exam. 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 Constitutional Vital Signs, click to edit/add: Last Vital Signs Temp 97.0 F L 10/30/23 04:34 Pulse 77 10/30/23 07:40 BP 146/85 H 10/30/23 07:40 O2 Del Method Room Air 10/29/23 23:07 Documenting provider has reviewed patient's vital signs: yes Common normals: no apparent distress and oriented x3 General appearance: cooperative, comfortable, well kempt and well developed Orientation/consciousness: Yes awake, Yes oriented to person, Yes oriented to place and Yes oriented to time HENMT Common normals: normocephalic Eye Common normals: EOMs intact bilaterally General eye: normal appearance of both eyes Visual acuity: acuity normal Alignment: alignment normal Neck & C-Spine Common normals: full ROM and no lymphadenopathy Lymph Lymphatic: no lymphadenopathy noted Respiratory Common normals: normal respiratory effort Effort & inspection: able to speak in complete sentences Auscultation: clear to auscultation bilaterally Cardio Common normals: regular rate and regular rhythm Rate: regular rate Rhythm: regular rhythm GI Common normals: Normal to inspection, nondistended, normoactive bowel sounds present Inspection: normal to inspection Auscultation: normoactive bowel sounds Palpation: soft Common normals: no CVA tenderness Back & Pelvis Common normals: no CVA tenderness Extremity Common normals: normal to inspection Neuro Common normals: oriented x3 Sensorium/orientation: awake, alert, oriented to person, oriented to place and oriented to time Psych Common normals: mental status grossly normal and cooperative Results Labs Labs: Short CBC 10/30/23 Range/Units 01:19 WBC 12.0 H (4.0-11.0) 10^3/uL Hgb 10.1 L (12.0-16.0) g/dL Hct 34.0 L (36.0-48.0) % Plt Count 325 (150-450) 10^3/uL OB - PN: A/P Time Spent with Patient Time: Total time spent is greater than 50% in coordination of care (as documented) at patient's floor/unit and/or counseling patient: Total time spent with greater than 50% in coordination of care (as documented) at patient's floor/unit and/or counseling patient: less than 15 minutes
[2023-10-30] MEDS: DOCUSATE SODIUM 100 MG CAPSULE PO (09:28)
--- NOTE | 2023-10-30 13:04 | SWNOTE1 ---
SW consulted due to positive drug screen. She was positive for amphetamines and methamphetamines. Pt does have everything she needs at home for baby. She lives at home with her father and she has a 2 year old daughter as well. Father of this baby and the 2 year old child is not involved, he is not in the picture at this time. Pt does admit to using, she voiced she was stressed due to finding out her cheated on her. She stated prior to this, she had been clean for 4 years. She did become tearful and voiced it was a mistake and it was stupid. She did tell SW she had a previos history of drug use. She has 2 other children who are 9 & 6. She has no contact with them, they are in custody of there father. She voiced she was doing really well and staying clean. Her father is a good support for her. She also goes to counseling 2x a month in [place]. SW let pt know that SW is a mandated high school coach and has to call CPS and make report. Pt voices understanding. Report made to [facility] CPS. HIPPA form filled out and sent to
--- NOTE | 2023-10-30 16:27 | SWNOTE1 ---
[facility] CPS will be in tomorrow morning at 7/7:30am. SW notified pt and nursing.
[2023-10-31] MEDS: DOCUSATE SODIUM 100 MG CAPSULE PO ×3 (01:58→22:08)
--- NOTE | 2023-10-31 07:57 | PM.OBPN ---
OB - PN: Subj Subjective Patient comments: no complaints and pain well controlled [place] status: doing well Exam Constitutional Vital Signs, click to edit/add: Last Vital Signs Temp 98.2 F 10/30/23 23:40 Pulse 86 10/30/23 23:40 Resp 18 10/30/23 23:40 BP 141/75 10/30/23 23:39 O2 Del Method Room Air 10/30/23 23:40 Documenting provider has reviewed patient's vital signs: yes Common normals: no apparent distress Respiratory Common normals: clear to auscultation bilaterally Cardio Common normals: regular rate and regular rhythm GI Common normals: Normal to inspection, nondistended, normoactive bowel sounds present Extremity Common normals: no calf tenderness OB - PN: A/P Plan - Vaginal Delivery day: 1 Plan: routine care Time Spent with Patient Time: Total time spent is greater than 50% in coordination of care (as documented) at patient's floor/unit and/or counseling patient: Total time spent with greater than 50% in coordination of care (as documented) at patient's floor/unit and/or counseling patient: less than 15 minutes
[2023-10-31] MEDS: IBUPROFEN 600 MG TABLET PO ×3 (09:31→22:09)
[2023-10-31 09:33] VITALS: BP 140/84; PULSE 96
[2023-10-31 09:45] VITALS: RESP 16
--- NOTE | 2023-10-31 09:57 | SWNOTE1 ---
[facility] CPS came to speak with pt and father of baby this morning. A safety plan was agreed upon. Safety plan is in the chart. Pt will get to take baby home and her father has to be present at discharge.
[2023-10-31 16:46] VITALS: BP 139/100; PULSE 82; RESP 16; TEMP 36.7
[2023-10-31 17:12] VITALS: BP 143/91; PULSE 82
[2023-10-31 22:11] VITALS: BP 137/96; PULSE 76; TEMP 36.3
[2023-10-31 22:14] VITALS: RESP 18
[2023-11-01 16:09] LABS: Amphetamine Positive (.); Amphetamine Conf, MS, UR >3000 ng/mL (Cutoff=500); Amphetamines Positive (.); Methamphetamine Positive (.); Methamphetamine Conf, MS, UR >3000 ng/mL (Cutoff=500)
== END 2023-10-31 23:20 | disposition home or self-care (01) | DRG 561 ==
PROVIDERS: Admitting Provider Obstetrics & Gynecology; Visit Provider Obstetrics & Gynecology
DX: O99.325 Drug use complicating the puerperium (principal); F15.90 Other stimulant use, unspecified, uncomplicated
CPT/HCPCS: 36415; 80307; 80326; 85027; 86850; 86900; 86901; 88307; 96374

== ENCOUNTER 2025-01-07 14:58 | Outpatient (OUT) | payer OTHER, SELFPAY ==
[2025-01-07 15:40] LABS: BOX Test Reference Lab UNITY; BOX Test Sent Out UNITY
[2025-01-07 15:42] LABS: Basophils Percent Auto 0.3 % (0.2-2.0); Eosinophils Absolute Auto 0.1 10^3/uL (0.0-0.7); Hematocrit 33.2 % (36.0-48.0); Hemoglobin 11.3 g/dL (12.0-16.0); Immature Granulocytes Abs Auto 0.01 10^3/uL (0.00-0.03); Immature Granulocytes Pct Auto 0.2 % (0.0-0.5); Lymphocytes Absolute Auto 1.6 10^3/uL (1.2-3.8); Lymphocytes Percent Auto 25.4 % (20.5-60.0); Mean Corpuscular Hemoglobin 27.2 pg (26.7-34.0); Mean Corpuscular Volume 79.8 fL (81.0-99.0); Mean Platelet Volume 10.4 fL (9.5-13.5); Monocytes Absolute Auto 0.4 10^3/uL (0.3-0.8); Monocytes Percent Auto 6.7 % (1.7-12.0); Neutrophils Absolute Auto 4.2 10^3/uL (1.4-6.5); Neutrophils Percent Auto 65.4 % (43.0-75.0); Platelet Count 262 10^3/uL (150-450); Red Blood Count 4.16 10^6/uL (4.20-5.40); Red Cell Distribution Width 13.7 % (11.0-15.0); White Blood Count 6.5 10^3/uL (4.0-11.0)
[2025-01-07 15:45] LABS: Glycohemoglobin A1C 5.1 % (4.5-6.2)
[2025-01-07 15:46] LABS: Estimated Average Glucose 100 mg/dL
[2025-01-07 15:56] LABS: Amphetamine Screen Urine NEGATIVE (NEGATIVE); Barbiturates Screen Urine NEGATIVE (NEGATIVE); Benzodiazepines Screen Urine NEGATIVE (NEGATIVE); Cannabinoid Screen Urine POSITIVE (NEGATIVE); Cocaine Screen Urine NEGATIVE (NEGATIVE); Methadone Screen Urine NEGATIVE (NEGATIVE); Methamphetamines Screen Urine NEGATIVE (NEGATIVE); Opiate Screen Urine NEGATIVE (NEGATIVE); Oxycodone Screen Urine NEGATIVE (NEGATIVE); Phencyclidine Screen Urine NEGATIVE (NEGATIVE); Tricyclic Antidepressant Urine NEGATIVE (NEGATIVE)
[2025-01-07 15:57] LABS: Buprenorphine Screen Urine NEGATIVE (NEGATIVE)
[2025-01-09 05:07] LABS: HIV Ab/p24 Ag Screen Non Reactive (Non Reactive)
[2025-01-09 06:12] LABS: HBsAg Screen Negative (Negative)
[2025-01-09 08:11] LABS: Rubella Antibodies, IgG 6.37 index (Immune >0.99)
[2025-01-09 13:08] LABS: Rapid Plasma Reagin, Quant Non Reactive titer (NonRea<1:1)
[2025-01-11 17:07] LABS: HCV Ab Reactive (Non Reactive)
== END 2025-01-07 14:59 | disposition home or self-care (01) ==
LOC: LAB 14:58
PROVIDERS: Visit Provider Obstetrics & Gynecology
DX: Z34.01 Encounter for supervision of normal first pregnancy, first trimester (principal); Z36.0 Encounter for antenatal screening for chromosomal anomalies; N92.6 Irregular menstruation, unspecified
CPT/HCPCS: 36415; 80307; 83036; 85025; 86592; 86762; 86803; 86850; 86900; 86901; 87077; 87086; 87186; 87340; 87389; 87522

== ENCOUNTER 2025-03-11 14:54 | Outpatient (REF) | payer OTHER, SELFPAY ==
[2025-03-13 11:09] LABS: Age Gdln ACOG Testing Note (.); HPV Aptima Negative (Negative); IGP, Aptima HPV, rfx 16/18,45 Note (.)
== END 2025-03-11 14:55 | disposition home or self-care (01) ==
LOC: LAB 14:54
PROVIDERS: Visit Provider Obstetrics & Gynecology
DX: Z01.419 Encounter for gynecological examination (general) (routine) without abnormal findings (principal)
CPT/HCPCS: 87624; 88175

== ENCOUNTER 2025-05-08 08:36 | Outpatient (OUT) | payer OTHER, SELFPAY ==
--- OUTSIDE RECORDS SUMMARY | 2025-02-11 09:30 | XMS_ITS ---
Author Organization [facility] es Address [address] [facility] [place] [address] Care Team Providers Care Interior Decorator Paperhanging Name Role Phone Jennie Harris Primary Care Provider Kaylijacqui Prisca Unavailable [phone] REASON FOR VISIT madeleine prisca Encounters Encounter Location Date Provider Diagnosis [address] [place] [address] 02/11/2025 Jennie Harris Plan Of Treatment No Information Progress Notes * NOE ERVINDOB: 4 (30 yo F)Acc No.[id number]:02/11/2025 Progress Notes Patient: NOE BOSTON Provider: JUANI Martinez :1995 A ge:30 Y S ex:Female Date:02/11/2025 Address:[address] [place], [place] [id number] Subjective: * Chief Complaints: * 1 . Madeleine prisca. * Medical History: Objective: * Vitals: Assessment: Plan: * Treatment: * Images: * Electronic signature of Tessa Harris CNP on 05/08/2025 at 08:40 AM EDT Sign off status: Pending * Provider: JUANI Martinez Date: 0 02/11/2025 Generated for Printi ng/Faxing/eTransmitting on: 0 05/08/2025 08:40 AM EDT
--- OUTSIDE RECORDS SUMMARY | 2025-05-06 11:30 | XMS_ITS | Encounter Summary ---
Author Organization [facility] Address [address] [place] [address] Care Team Providers Care Fire Prevention Inspector Name Role Phone Unavailable Primary Care Provider Unavailabl e Reason for Visit * Reason Comments Routine Visit Encounter Details Date Type Department Care Team (Latest Contact Info) Description 05/06/2025 11:30 AM EDT Routine [facility] [address] [place] [address] Yousif Aparicio DO [address] [facility] [place] [address] Third trimester ([facility]); 29 weeks gestation of ([facility]); size inconsistent with dates ([facility]); Low iron; Dizziness; Nausea Social History Tobacco Use Types Packs/Day Years Used Date Smoking Tobacco: Never Smokeless Tobacco: Never Alcohol Use Standard Drinks/Week Comments Never 0 (1 standard drink = 0.6 oz pur e alcohol) PHQ-2 Answer Date Recorded Patient Health Questionnaire-2 Score 0 03/18/2025 Estimated Date of Delivery Comme nts Yes 07/22/2025 Based on Ultraso und Sex and Gender Information Value Date Recorded Sex Assigned at Not on file Legal Sex Female 8:06 PM EDT Gender Identity Not on file Sexual Orientation Not on file documented as of this encounter Last Filed Vital Signs Vital Sign Reading Time Taken Comments Blood Pressure - - Pulse - - Temperature - - Respiratory Rate - - Oxygen Saturation - - Inhaled Oxygen Concentration - - Weight 84.9 kg (187 lb 4 oz) 05/06/2025 11:44 AM EDT Height - - Body Mass Index - - documented in this encounter Plan of Treatment Upcoming Encounters Date Type Department Care Team (Late st Contact Info) Description 05/20/2025 9:30 AM EDT Ancillary Procedure [facility] [place] [facility] [address] [facility] [place] [address] 05/20/2025 9:50 AM EDT Routine [facility] [place] [facility] [address] [facility] [place] [address] Violet Woody, JIG BORING MACHINE OPERATOR FOR METAL [address] [facility] [place] [address] Scheduled Orders Name Type Priority Associated Diagnoses Orde r Schedule Transferrin Lab Routine Low iron Dizziness Expected: 05/06/2025 (Approximate), Expires: 05/06/2026 Ferritin Lab Routine Low iron Dizziness Ordered: 05/06/2025 OB follow up transabdominal approach Imaging Routine size inconsistent with dates ([facility]) Expected: 05/06/2025, Expires: 09/05/2025 documented as of this encounter Procedures Procedure Name Priority Date/Time Associated Diagnosis Comments POCT URINALYSIS DIPSTICK Routine 05/06/2025 11:51 AM EDT Third trimester ([facility]) documented in this encounter Results * (ABNORMAL) POCT urinalysis dipstick manually resulted (05/06/2025 11:51 AM EDT) Color, UA Yellow Clarity, UA Clear Glucose, UA Negative Negative - 1999(110) ++++ mg/dL Bilirubin, UA Negative Negative - 4(70) +++ mg/dL Ketones, UA Negative Negative - 160(16) ++++ mg/dL Spec Grav, UA 1.010 1 - 1.03 Blood, UA Positive Negative - 50 Chriss/mcL Comment:Large pH, UA 7.0 5 - 9 Protein, UA Negative Negative - 1999(20) ++++ mg/dL Urobilinogen, UA 0.2 0.2 - 12 mg/dL Leukocytes, UA Negative Negative - 500+++ Leila/mcL Nitrite, UA Negative Negative - Positive Urine 05/06/2025 11:5 1 AM EDT Yousif Aparicio DO POINT OF CARE TEST ENTER/EDIT OR DERABLES Final Result documented in this encounter Visit Diagnoses Diagnosis Third trimester ([facility]) state, incidental 29 weeks gestation of ([facility]) size inconsistent with dates ([facility]) Low iron Unspecified iron deficiency anemia Dizziness Dizziness and giddiness Nausea Nausea alone documented in this encounter
--- OUTSIDE RECORDS SUMMARY | 2025-05-07 09:15 | XMS_ITS ---
Author Organization [facility] Serv[facility] es Address [address] [facility] [place] [address] Care Team Providers Care Chief Ophthalmic Technician Name Role Phone Jennie Harris Primary Care Provider TiffanierenettaPrisca [phone] REASON FOR VISIT vomiting/diarrhea while Encounters Encounter Location Date Provider Diagnosis [address] [place] [address] 05/07/2025 Jennie Harris Plan Of Treatment No Information Progress Notes * ARCADIO NOEDOB: 4 (30 yo F)Acc No.[id number]:05/07/2025 Progress Notes Patient: NOE BOSTON Provider: JUANI Martinez :1995 A ge:30 Y S ex:Female Date:05/07/2025 Address:[address] [place], [place] [address] Subjective: * Chief Complaints: * 1 . Vomiting/diarrhea while . * Medical History: Objective: * Vitals: Assessment: Plan: * Treatment: * Images: * Electronic signature of Tessa Harris CNP on 05/08/2025 at 08:39 AM EDT Sign off status: Pending * Provider: JUANI Martinez Date: 0 05/07/2025 Generated for Printi leena/Fabrianna/eTransmitting on: 05/08/2025 08:39 AM EDT
--- OUTSIDE RECORDS SUMMARY | 2025-05-08 08:39 | XMS_ITS | Encounter Summary ---
Author Organization [facility] Address [address] [place] [address] Care Team Providers Care Concession Stand Attendant Name Role Phone Unavailable Primary Care Provider Unavailabl e Encounter Details Date Type Department Care Team (Late Contact Info) Description 09/05/2023 Clinisync Result Encounter [facility] External Department Unsolicited Shon Aparicio DO [address] [facility] [address] [place], [place] [id number] Social History Tobacco Use Types Packs/Day Years Used Date Smoking Tobacco: Never Smokeless Tobacco: Never Alcohol Use Standard Drinks/Week Comments Never 0 (1 standard drink = 0.6 oz pur e alcohol) Comments Yes Sex and Gender Information Value Date Recorded Sex Assigned at Not on file Legal Sex Female 8:06 PM EDT Gender Identity Not on file Sexual Orientation Not on file documented as of this encounter Plan of Treatment Upcoming Encounters Date Type Department Care Team (Late Contact Info) Description 05/20/2025 9:30 AM EDT Ancillary Procedure [facility] [place] [facility] [address] [place] [address] 05/20/2025 9:50 AM EDT Routine [facility] [place] [facility] [address] [facility] [place] [address] Violet Woody, CONFIGURATION SPECIALIST [address] [place] [address] documented as of this encounter Procedures Procedure Name Priority Date/Time Associated Diagnosis Comments US OB GROWTH 09/05/2023 3:57 PM EST documented in this encounter Results * US OB GROWTH (09/05/2023 3:57 PM EST) Anatomical Region Laterality Modality Other 09/05/2023 3:57 PM EST Narrative 09/05/2023 4:00 [place] [address] Ultrasound Report Signed Patient: NOE ERVIN MR#: [id number] : 1995 Acct:[id number] Age/Sex: 28 / F ADM Date: 09/05/23 Loc: US Attending Dr: Shon Aparicio D.O. Ordering Physician: Shon Aparicio D.O. Date of Service: 09/05/23 Procedure(s): US OB growth Accession Number(s): [id number] cc: FAMILY,HEALTH SER ; Shon Aparicio D.O. [place] [address] Patient Name: NOE ERVIN MRN: [id number] date: 1995 Sex: F Assigned Patient Location: Current Patient Location: US Accession/Order Number: [id number] Exam Date: 09/05/2023 15:18 Report Date: 09/05/2023 15:57 At the request of: SHON APARICIO Procedure: US OB growth EXAMINATION: US OB growth HISTORY: SIZE INCONSISTENT WITH DATES COMPARISON: No relevant comparison available. FINDINGS: Heart Rate: 149.0 bpm Amniotic Fluid Volume: 9.3 cm Number: 1.0 Position: CEPHALIC Maximum Vertical Pocket: 3.4 cm cm 0.0 cm cm 3.5 cm cm 2.4 cm cm BIOMETRY: BPD: 8.0 cm cm; 32 weeks 0 days; 84% HC: 28.1 cmcm; 30 weeks 5 days , 23% AC: 27.1 cm cm; 31 weeks 2 days, 70% FL: 6.0 cm cm; 31 weeks 1 days; 55.9 % % EFW: 1721.6 grams, 3lb 13 oz, 65% FL/AC: 22.0 FL/BPD: 75.0 HC/AC: 1.0 GESTATIONAL AGE: Age by EDC: 30 weeks 3 days ANGELA by EDC: 11/11/2023 Age by US: 31 weeks, 2 days ANGELA by US: 11/05/2023 US/US OB growth IMPRESSION: Normal interval growth Electronically authenticated by: DILLON BAUGH Date: 09/05/2023 15:57 Dictated By: Dillon Baugh M.D. Signed By: 09/05/23 1600 DD/ 155 TD/TT: Pet Groomer: Procedure Note Radiology, Radiologist, MD - 09/06/2023 [place] [address] Ultrasound Report Signed Patient: NOE ERVIN MMR#: [id number] : 1995Acct:[id number] Age/Sex: 28 / FADM Date: 09/05/23 Loc: US Attending Dr: Shon Aparicio D.O. Ordering Physician: Shon Aparicio D.O. Date of Service: 09/05/23 Procedure(s): US OB growth Accession Number(s): [id number] cc: FAMILY,HEALTH SER ; Shon Aparicio D.O. The [place] [address] Patient Name: NOE ERVIN MRN: [facility]:[id number] date: 1995 Sex: F Assigned Patient Location: US Current Patient Location: US Accession/Order Number: [id number] Exam Date: 09/05/2023 15:18 Report Date: 09/05/2023 15:57 At the request of: SHON APARICIO Procedure: US OB growth EXAMINATION: US OB growth HISTORY: SIZE INCONSISTENT WITH DATES COMPARISON: No relevant comparison available. FINDINGS: Heart Rate: 149.0 bpm Amniotic Fluid Volume: 9.3 cm Number: 1.0 Position: CEPHALIC Maximum Vertical Pocket: 3.4 cm cm 0.0 cm cm 3.5 cm cm 2.4 cm cm BIOMETRY: BPD: 8.0 cm cm; 32 weeks 0 days; 84% HC: 28.1 cmcm; 30 weeks 5 days , 23% AC: 27.1 cm cm; 31 weeks 2 days, 70% FL: 6.0 cm cm; 31 weeks 1 days; 55.9 % % EFW: 1721.6 grams, 3lb 13 oz, 65% FL/AC: 22.0 FL/BPD: 75.0 HC/AC: 1.0 GESTATIONAL AGE: Age by EDC: 30 weeks 3 days ANGELA by EDC: 11/11/2023 Age by US: 31 weeks, 2 days ANGELA by US: 11/05/2023 US/US OB growth IMPRESSION: Normal interval growth Electronically authenticated by: DILLON BAUGH Date: 09/05/2023 15:57 Dictated By: Dillon Baugh M.D. Signed By:09/05/23 1600 DD/ 1557 TD/TT: Pet Groomer: us Shon Aparicio DO [facility] Final Result documented in this encounter Visit Diagnoses Not on filedocumented in this encounter
--- OUTSIDE RECORDS SUMMARY | 2025-05-08 08:39 | XMS_ITS | Encounter Summary ---
Author Organization [facility] Address [address] [facility] [address] Care Team Providers Care Rug Dyer Helper Name Role Phone Unavailable Primary Care Provider Unavailabl e Encounter Details Date Type Department Care Team (Late Contact Info) Description 09/11/2023 Clinisync Result Encounter [facility] External Department Unsolicited Shon Aparicio DO [address] [facility] [address] [place], [place] [phone] Social History Tobacco Use Types Packs/Day Years [...] 9:30 AM EDT Ancillary Procedure [facility] [place] [facility]EL [address] [facility] [place] [place] [address] 05/20/2025 9:50 AM EDT Routine [facility] [place] GIANG [address] [facility] [place] [place] [address] Violet Woody, JEWEL SORTER [address] [place] [address] documented as of this encounter Procedures Procedure Name Priority Date/Time Associated Diagnosis Comments US OB BPP W NON-STRESS 09/11/2023 3:06 PM EST documented in this encounter Results * US OB BPP W NON-STRESS (09/11/2023 3:06 PM EST) Anatomical Region Laterality Modality Other 09/11/2023 3:06 PM EST Narrative 09/11/2023 3:08 [place] [address] Ultrasound Report Signed Patient: NOE ERVIN MR#: [id number] : 1995 Acct:[id number] Age/Sex: 28 / F ADM Date: 09/11/23 Loc: [facility] 250-[address]: Shon Aparicio D.O. Ordering Physician: Shon Aparicio D.O. Date of Service: 09/11/23 Procedure(s): US OB BPP w non-stress Accession Number(s): [id number] cc: FAMILY,HEALTH SER ; Shon Aparicio D.O. The [place] [address] Patient Name: NOE ERVIN MRN: [id number]:[id number] date: 1995 Sex: F Assigned Patient Location: [facility] Current Patient Location: [facility] Accession/Order Number: [id number] Exam Date: 09/11/2023 14:10 Report Date: 09/11/2023 15:06 At the request of: SHON APARICIO Procedure: US OB BPP w non-stress Ultrasound biophysical profile CLINICAL: Evaluate well-being. TECHNIQUE: Dedicated ultrasound imaging of the fetus was performed to include the obgyn hospitalist physician's evaluation of biophysical profile. FINDINGS: Comparison: 09/07/2023 FETUS: There is a single living intrauterine fetus in vertex presentation. heart rate of 138 beats per minute. AMNIOTIC FLUID: The amniotic fluid index is 12.00 cm, with maximum vertical pocket of 3.76 cm. BIOPHYSICAL PROFILE: motion: 2 out of 2. tone: 2 out of 2. breathin out of 2. Amniotic fluid volume: 2 out of 2. Total score: 8 out of 8. OTHER FINDINGS: None. US/US OB BPP w non-stress IMPRESSION: 1. Single viable fetus in vertex presentation with heart rate of 138 beats per minute. 2. Total biophysical profile score of 8 out of 8. 3. Amniotic fluid index of 12.00 cm, with maximum vertical pocket of 3.76 cm. Amniotic fluid index on study 09/07/2023 was 11.16 cm. Electronically authenticated by: JORDON FERNANDEZ Date: 09/11/2023 15:06 Dictated By: Jordon Fernandez M.D. Signed By: 09/11/23 1508 DD/ 1506 TD/TT: Strap Folding Machine Operator: Procedure Note Radiology, Radiologist, MD - 11/21/2023 [place] [address] Ultrasound Report Signed Patient: NOE ERVIN MMR#: [id number] : 1995Acct:[id number] Age/Sex: 28 / FADM Date: 09/11/23 Loc: [facility] 250-[address]: Shon Aparicio D.O. Ordering Physician: Shon Aparicio D.O. Date of Service: 09/11/23 Procedure(s): US OB BPP w non-stress Accession Number(s): [id number] cc: FAMILY,HEALTH SER ; Shon Aparicio D.O. The [place] [id number] Patient Name: NOE ERVIN MRN: [id number]:[id number] date: 1995 Sex: F Assigned Patient Location: [facility] Current Patient Location: [facility] Accession/Order Number: [id number] Exam Date: 09/11/2023 14:10 Report Date: 09/11/2023 15:06 At the request of: SHON APARICIO Procedure: US OB BPP w non-stress Ultrasound biophysical profile CLINICAL: Evaluate well-being. TECHNIQUE: Dedicated ultrasound imaging of the fetus was performed toinclude the obgyn hospitalist physician's evaluation of biophysical profile. FINDINGS: Comparison: 09/07/2023 FETUS: There is a single living intrauterine fetus in vertex presentation. heart rate of 138 beats per minute. AMNIOTIC FLUID: The amniotic fluid index is 12.00 cm, with maximumvertical pocket of 3.76 cm. BIOPHYSICAL PROFILE: motion: 2 out of 2. tone: 2 out of 2. breathin out of 2. Amniotic fluid volume: 2 out of 2. Total score: 8 out of 8. OTHER FINDINGS: None. US/US OB BPP w non-stress IMPRESSION: 1. Single viable fetus in vertex presentation with heart rate of 138 beats per minute. 2. Total biophysical profile score of 8 out of 8. 3. Amniotic fluid index of 12.00 cm, with maximum vertical pocket of 3.76cm. Amniotic fluid index on study 09/07/2023 was 11.16 cm. Electronically authenticated by: JORDON FERNANDEZ Date: 09/11/2023 15:06 Dictated By: Jordon Fernandez M.D. Signed By:09/11/23 1508 DD/ 1506 TD/TT: Strap Folding Machine Operator: us Shon Markus DO [facility] Final Result documented in this encounter Visit Diagnoses Not on filedocumented in this encounter
--- OUTSIDE RECORDS SUMMARY | 2025-05-08 08:39 | XMS_ITS | Encounter Summary ---
Author Organization [facility] Address [address] [place] [address] Care Team Providers Care Director Corporate Sales Name Role Phone Unavailable Primary Care Provider Unavailabl e Encounter Details Date Type Department Care Team (Late Contact Info) Description 03/19/2025 Orders Only [facility] GI[facility] [address] [place] [address] Anne-Marie Mcleod MA Social History Tobacco Use Types Packs/Day Years [...] Description 05/20/2025 9:30 AM EDT Ancillary Procedure [facility] [address] [place] [address] 05/20/2025 9:50 AM EDT Routine [facility] [address] [place] [address] Violet Woody, HOOP RIVETER [address] [place] [address] documented as of this encounter Procedures Procedure Name Priority Date/Time Associated Diagnosis Comments PAP SMEAR Routine 03/11/2025 12:00 AM EDT documented in this encounter Results * Pap Smear (03/11/2025 12:00 AM EDT) Swab Cervical swab / Unknown us Yousif Markus DO LAB CYTOLOGY ORDERABLES Final Re sult EXTERNAL LAB documented in this encounter Visit Diagnoses Not on filedocumented in this encounter
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
--- OUTSIDE RECORDS SUMMARY | 2025-05-08 08:39 | XMS_ITS | Encounter Summary ---
Author Organization [facility] Address [address] [place] [address] Care Team Providers Care Press Machine Operator Name Role Phone Unavailable Primary Care Provider Unavailabl e Encounter Details Date Type Department Care Team (Late Contact Info) Description 06/30/2023 Clinisync Result Encounter [facility] External Department Unsolicited Shon Aparicio DO [address] [facility] [address] [place], [place] [id number] Social History Tobacco Use Types Packs/Day Years [...] EDT Ancillary Procedure [facility] [address] [place] [phone] 05/20/2025 9:50 AM EDT Routine [facility] [address] [place] [place] [address] Violet Woody, ARCHITECTURAL MODELER [address] [place] [phone] documented as of this encounter Procedures Procedure Name Priority Date/Time Associated Diagnosis Comments US OB ANATOMY 06/30/2023 8:54 AM EDT documented in this encounter Results * US OB ANATOMY (06/30/2023 8:54 AM EDT) Anatomical Region Laterality Modality Other 06/30/2023 8:54 AM EDT Narrative 06/30/2023 8:54 [place] [address] Ultrasound Report Signed Patient: NOE ERVIN MR#: [id number] : 1995 Acct:[id number] Age/Sex: 28 / F ADM Date: 06/29/23 Loc: US Attending Dr: Shon Aparicio D.O. Ordering Physician: Shon Aparicio D.O. Date of Service: 06/29/23 Procedure(s): US OB anatomy Accession Number(s): [id number] cc: FAMILY,HEALTH SER ; Shon Aparicio D.O. [place] [address] Patient Name: NOE ERVIN MRN: [id number] date: 1995 Sex: F Assigned Patient Location: US Current Patient Location: Accession/Order Number: [id number] Exam Date: 06/29/2023 18:00 Report Date: 06/30/2023 08:54 At the request of: SHON APARICIO Procedure: US OB anatomy EXAMINATION: US OB anatomy, US OB cervical length HISTORY: ANATOMY SCAN Z 34.92 COMPARISON: No relevant comparison available. TECHNIQUE: Transabdominal sonographic examination was performed for obstetrical and evaluation. FINDINGS: Number: 1 Heart Rate: 130.4 bpm H.B. /min Amniotic Fluid Volume: Subjectively normal Placental Location: POSTERIOR with lower margin covering the internal os by 1.4 cm. Cervix Length: 5.6 cm, closed. ANATOMY: Normal Structures -cerebellum, choroid plexus, cisterna magna, lateral cerebral ventricles, orbits, midline falx, hard palate, four-chamber heart, RVOT, LVOT, stomach, kidneys, bladder, umbilical cord insertion into abdomen, three-vessel cord, cervical spine, thoracic spine, lumbar spine, sacral spine, right upper extremity, left upper extremity, right lower extremity, left lower extremity. SUBOPTIMALLY SEEN: None ABNORMALITIES: None BIOMETRY: BPD: 5.0 cm 21 weeks 1 days HC: 19.0 cm 21 weeks 2 days AC: 17.0 cm 22 weeks 0 days FL: 3.6 cm 21 weeks 2 days EFW:437.4 grams; 89% FL/AC: 21.1 FL/BPD: 71.7 HC/AC: 1.1 GESTATIONAL AGE: Age by EDC: 20 weeks 5 days ANGELA by EDC: 11/11/2023 Age by current US: 21 weeks 3 days ANGELA by current US: 11/06/2023 US/US OB anatomy IMPRESSION: 1. Single live intrauterine with growth detailed above. 2. Posterior placenta with complete previa. Follow-up recommended. Electronically authenticated by: ROGELIO RODRIGUEZ Date: 06/30/2023 08:54 Dictated By: Rogelio Rodriguez M.D. Signed By: 06/30/2356 DD/ TD/TT: Professional Athlete: Procedure Note Radiology, Radiologist, MD - 06/30/2023 [place] [address] Ultrasound Report Signed Patient: NOE ERVIN MMR#: [id number] : 1995Acct:[id number] Age/Sex: 28 / FADM Date: 06/29/23 Loc: US Attending Dr: Shon Aparicio D.O. Ordering Physician: Shon Aparicio D.O. Date of Service: 06/29/23 Procedure(s): US OB anatomy Accession Number(s): [id number] cc: FAMILY,HEALTH SER ; Shon Aparicio D.O. The [address] [address] Patient Name: NOE ERVIN MRN: [id number] date: 1995 Sex: F Assigned Patient Location: US Current Patient Location: Accession/Order Number: [id number] Exam Date: 06/29/2023 18:00 Report Date: 06/30/2023 08:54 At the request of: SHON APARICIO Procedure: US OB anatomy EXAMINATION: US OB anatomy, US OB cervical length HISTORY: ANATOMY SCAN Z 34.92 COMPARISON: No relevant comparison available. TECHNIQUE: Transabdominal sonographic examination was performed for obstetrical and evaluation. FINDINGS: Number: 1 Heart Rate: 130.4 bpm H.B. /min Amniotic Fluid Volume: Subjectively normal Placental Location: POSTERIOR with lower margin covering the internal osby 1.4 cm. Cervix Length: 5.6 cm, closed. ANATOMY: Normal Structures -cerebellum, choroid plexus, cisterna magna, lateral cerebral ventricles, orbits, midline falx, hard palate, four-chamberheart, RVOT, LVOT, stomach, kidneys, bladder, umbilical cord insertion intoabdomen, three-vessel cord, cervical spine, thoracic spine, lumbar spine, sacralspine, right upper extremity, left upper extremity, right lower extremity, leftlower extremity. SUBOPTIMALLY SEEN: None ABNORMALITIES: None BIOMETRY: BPD: 5.0 cm 21 weeks 1 days HC: 19.0 cm 21 weeks 2 days AC: 17.0 cm 22 weeks 0 days FL: 3.6 cm 21 weeks 2 days EFW:437.4 grams; 89% FL/AC: 21.1 FL/BPD: 71.7 HC/AC: 1.1 GESTATIONAL AGE: Age by EDC: 20 weeks 5 days ANGELA by EDC: 11/11/2023 Age by current US: 21 weeks 3 days ANGELA by current US: 11/06/2023 US/US OB anatomy IMPRESSION: 1. Single live intrauterine with growth detailed above. 2. Posterior placenta with complete previa. Follow-up recommended. Electronically authenticated by: ROGELIO RODRIGUEZ Date: 06/30/2023 08:54 Dictated By: Rogelio Rodriguez M.D. Signed By:06/30/2356 DD/ 3 TD/TT: Professional Athlete: us Shon Aparicio DO [facility] Final Result documented in this encounter Visit Diagnoses Not on filedocumented in this encounter
--- OUTSIDE RECORDS SUMMARY | 2025-05-08 08:39 | XMS_ITS | Encounter Summary ---
Author Organization [facility] Address [address] [place] [address] Care Team Providers Care Veterinary Pharmacologist Name Role Phone Unavailable Primary Care Provider Unavailabl e Encounter Details Date Type Department Care Team (Late Contact Info) Description 06/30/2023 Clinisync Result Encounter [facility] External Department Unsolicited Shon Aparicio DO [address] [facility] [address] [place], [place] [phone] Social History Tobacco Use Types Packs/Day Years [...] 9:30 AM EDT Ancillary Procedure [facility] [address] [place] [phone] 05/20/2025 9:50 AM EDT Routine [facility] [address] [facility] [place] [phone] Violet Woody, TRANSFORMATION CONSULTANT [address] [place] [phone] documented as of this encounter Procedures Procedure Name Priority Date/Time Associated Diagnosis Comments US OB CERVICAL LENGTH 06/30/2023 8:54 AM EDT documented in this encounter Results * US OB CERVICAL LENGTH (06/30/2023 8:54 AM EDT) Anatomical Region Laterality Modality Other 06/30/2023 8:54 AM EDT Narrative 06/30/2023 8:54 [place] [address] Ultrasound Report Signed Patient: NOE ERVIN MR#: [id number] : 1995 Acct:[id number] Age/Sex: 28 / F ADM Date: 06/29/23 Loc: US Attending Dr: Shon Aparicio D.O. Ordering Physician: Shon Aparicio D.O. Date of Service: 06/29/23 Procedure(s): US OB cervical length Accession Number(s): [id number] cc: FAMILY,HEALTH SER ; Shon Aparicio D.O. [place] [id number] Patient Name: NOE ERVIN MRN: [id number] date: 1995 Sex: F Assigned Patient Location: Current Patient Location: Accession/Order Number: [id number] Exam Date: 06/29/2023 18:00 Report Date: 06/30/2023 08:54 At the request of: SHON APARICIO Procedure: US OB cervical length EXAMINATION: US OB anatomy, US OB cervical [...] ANGELA by current US: 11/06/2023 US/US OB cervical length IMPRESSION: 1. Single live intrauterine with growth detailed above. 2. Posterior placenta with complete previa. Follow-up recommended. Electronically authenticated by: ROGELIO RODRIGUEZ Date: 06/30/2023 08:54 Dictated By: Rogelio Rodriguez M.D. Signed By: 06/30/2356 DD/ TD/TT: Diesel Scoop Operator: Procedure Note Radiology, Radiologist, MD - 06/30/2023 [place] [address] Ultrasound Report Signed Patient: NOE ERVIN MMR#: [id number] : 1995Acct:[id number] Age/Sex: 28 / FADM Date: 06/29/23 Loc: US Attending Dr: Shon Aparicio D.O. Ordering Physician: Shon Aparicio D.O. Date of Service: 06/29/23 Procedure(s): US OB cervical length Accession Number(s): [id number] cc: FAMILY,HEALTH SER ; Shon Aparicio D.O. The [place] [id number] Patient Name: NOE ERVIN MRN: [id number] date: 1995 Sex: F Assigned Patient Location: US Current Patient Location: Accession/Order Number: [id number] Exam Date: 06/29/2023 18:00 Report Date: 06/30/2023 08:54 At the request of: SHON APARICIO Procedure: US OB cervical length EXAMINATION: US OB anatomy, US OB cervical [...] ANGELA by current US: 11/06/2023 US/US OB cervical length IMPRESSION: 1. Single live intrauterine with growth detailed above. 2. Posterior placenta with complete previa. Follow-up recommended. Electronically authenticated by: ROGELIO RODRIGUEZ Date: 06/30/2023 08:54 Dictated By: Rogelio Rodriguez M.D. Signed By:06/30/2356 DD/ 3 TD/TT: Diesel Scoop Operator: us Shon Aparicio DO [facility] Final Result documented in this encounter Visit Diagnoses Not on filedocumented in this encounter
--- OUTSIDE RECORDS SUMMARY | 2025-05-08 08:39 | XMS_ITS | Encounter Summary ---
Author Organization [facility] Address [address] [place] [address] Care Team Providers Care Research Pharmacist Name Role Phone Unavailable Primary Care Provider Unavailabl e Encounter Details Date Type Department Care Team (Late Contact Info) Description 09/09/2023 Clinisync Result Encounter [facility] External Department Unsolicited Jody Hall PA [address] [facility] [address] [place], [facility] Social History Tobacco Use Types Packs/Day Years [...] EDT Ancillary Procedure [facility] [address] [place] [phone] 05/20/2025 9:50 AM EDT Routine [facility] [address] [place] [address] Violet Woody, SENIOR LICENSING MANAGER [address] [phone] documented as of this encounter Procedures Procedure Name Priority Date/Time Associated Diagnosis Comments US OB BPP W NON-STRESS 09/09/2023 12:17 AM EST documented in this encounter Results * US OB BPP W NON-STRESS (09/09/2023 12:17 AM EST) Anatomical Region Laterality Modality Other 09/09/2023 12:1 7 AM EST Narrative 09/09/2023 12:19 [place] [address] Ultrasound Report Signed Patient: NOE ERVIN MR#: [id number] : 1995 Acct:[id number] Age/Sex: 28 / F ADM Date: 09/07/23 Loc: US Attending Dr: Yousif Aparicio D.O. Ordering Physician: Jody Hall Date of Service: 09/07/23 Procedure(s): US OB BPP w non-stress Accession Number(s): [id number] cc: Jody Hall; FAMILY,HEALTH [place] [address] Patient Name: NOE ERVIN MRN: [id number] date: 1995 Sex: F Assigned Patient Location: [facility] Current Patient Location: Accession/Order Number: [id number] Exam Date: 09/07/2023 17:10 Report Date: 09/09/2023 00:17 At the request of: JODY HALL Procedure: US OB BPP w non-stress EXAMINATION: US OB BPP w non-stress HISTORY: OLIGOHYDRAMNIOS COMPARISON: Ultrasound OB growth 09/05/2023 TECHNIQUE: Ultrasound biophysical profile was performed in the radiology department. BREATHING MOVEMENTS: 0.0 GROSS BODY MOVEMENTS: 2.0 TONE: 2.0 QUALITATIVE AMNIOTIC FLUID VOLUME: 2.0 PRESENTATION: CEPHALIC HEART RATE: 121.6 bpm bpm. AMNIOTIC FLUID VOLUME: 11.2 cm GESTATIONAL AGE: 30 weeks 5 days CONCLUSION: Total biophysical profile score 6.0. Electronically authenticated by: ROGELIO RODRIGUEZ Date: 09/09/2023 00:17 Dictated By: Rogelio Rodriguez M.D. Signed By: 09/09/23 001 DD/ TD/TT: Home Management Supervisor: Procedure Note Radiology, Radiologist, MD - 09/09/2023 [place] [address] Ultrasound Report Signed Patient: NOE ERVIN MMR#: [id number] : 1995Acct:[id number] Age/Sex: 28 / FADM Date: 09/07/23 Loc: US Attending Dr: Yousif Aparicio D.O. Ordering Physician: Jody Hall Date of Service: 09/07/23 Procedure(s): US OB BPP w non-stress Accession Number(s): [id number] cc: Jody Hall; FAMILY,[facility]ALTH [facility] The [place] [address] Patient Name: NOE ERVIN MRN: [id number] date: 1995 Sex: F Assigned Patient Location: [facility] Current Patient Location: Accession/Order Number: [id number] Exam Date: 09/07/2023 17:10 Report Date: 09/09/2023 00:17 At the request of: JODY HALL Procedure: US OB BPP w non-stress EXAMINATION: US OB BPP w non-stress HISTORY: OLIGOHYDRAMNIOS COMPARISON: Ultrasound OB growth 09/05/2023 TECHNIQUE: Ultrasound biophysical profile was performed in the radiology department. BREATHING MOVEMENTS: 0.0 GROSS BODY MOVEMENTS: 2.0 TONE: 2.0 QUALITATIVE AMNIOTIC FLUID VOLUME: 2.0 PRESENTATION: CEPHALIC HEART RATE: 121.6 bpm bpm. AMNIOTIC FLUID VOLUME: 11.2 cm GESTATIONAL AGE: 30 weeks 5 days CONCLUSION: Total biophysical profile score 6.0. Electronically authenticated by: ROGELIO RODRIGUEZ Date: 09/09/2023 00:17 Dictated By: Rogelio Rodriguez M.D. Signed By:09/09/239 DD/ TD/TT: Home Management Supervisor: us Jody UREÑA [facility] Final Result documented in this encounter Visit Diagnoses Not on filedocumented in this encounter
--- OUTSIDE RECORDS SUMMARY | 2025-05-08 08:39 | XMS_ITS | Encounter Summary ---
Author Organization [facility] Address [address] [place] [address] Care Team Providers Care Tool Liaison Name Role Phone Unavailable Primary Care Provider Unavailabl e Encounter Details Date Type Department Care Team (Late Contact Info) Description 05/06/2025 Bamboo flowsheet [facility] GI[facility] [address] [place] [address] Yousif Aparicio DO [address] [facility] [address] [place], [facility]11 Social History Tobacco Use Types Packs/Day Years [...] Description 05/20/2025 9:30 AM EDT Ancillary Procedure [facility] GI[facility] [address] [place] [address] 05/20/2025 9:50 AM EDT Routine [facility] [address] [place] [address] Violet Woody, DELIVERY AIDE [address] [place] [address] [place] [address] documented as of this encounter Visit Diagnoses Not on filedocumented in this encounter
--- OUTSIDE RECORDS SUMMARY | 2025-05-08 08:39 | XMS_ITS | Encounter Summary ---
Author Organization [facility] Address [address] [place] [address] Care Team Providers Care Immigration Manager Name Role Phone Unavailable Primary Care Provider Unavailabl e Reason for Visit * Reason Onset Date Comments Med Refill 04/29/2025 Encounter Details Date Type Department Care Team (Late st Contact Info) Description 04/29/2025 Refill [facility] [address] [facility] [address] [address] Marva Wagner LPN [address] [facility] [place] [phone] Nausea and vomiting, unspecified vomiting type Social History Tobacco Use Types Packs/Day Years [...] on file documented as of this encounter Miscellaneous Notes * Telephone Encounter - Marva Wagner LPN - 04/29/2025 12:48 PM EDT Pt needed refill on medication. I told her that I could do that.PVU documented in this encounter Plan of Treatment Upcoming Encounters Date Type Department Care Team (Late st Contact Info) Description 05/20/2025 9:30 AM EDT Ancillary Procedure [facility] [address] [place] [address] 05/20/2025 9:50 AM EDT Routine [facility] [address] [facility] [place] [address] Violet Woody, TELMA [address] [place] [address] documented as of this encounter Visit Diagnoses Diagnosis Nausea and vomiting, unspecified vomiting type documented in this encounter
--- OUTSIDE RECORDS SUMMARY | 2025-05-08 08:40 | XMS_ITS | Patient Health Record ---
Author Organization [facility] es Address [address] [place] [address] Care Team Providers Care Furnace Puncher Name Role Phone Jennie Harris Primary Care Provider Prisca Moss Unavailable [phone] Marla Edwards Unavailable [phone] Jamila Winter Unavailable [phone] Allergies Allergen (clinical drug ingredient) Drug/Non Drug Allergy documented on EMR Reaction Allergy Type Onset Date Status Wellbutrin Seizure Drug Allergy Active Reason For Referral Reason SCHEDULED 11/20 Hep C positive, needing treatment. Please evaluate and treat. Diagnosis 1 Chronic hepatitis C without hepatic coma (B18.2) Referral Organization [facility] Referring Provider First Name Prisca Referring Provider Last Name Isa Referring Provider Speciality Nurse Melanie parkerr Referred Provider [facility] , . Referred Provider Specialty Gastroentero logy Referral Priority Routine Medications Medication SIG (Take, Route, Frequency, Duration) Notes Start Date End Date Status Citalopram Hydrobromide 10 MG 1 tablet Orally Once a day; Duration: 30 days 02/17/2025 Active Propranolol HCl 20 MG 1 tablet Orally On ce a day as needed; Duration: 30 days Not-Taking Gabapentin 600 MG 1 tablet Orally thre e times a day; Duration: 30 days Active LaMICtal 25 MG 1 tablet Orally manuela y; Duration: 30 days Active Social History Sexual Hx: Question Answer Notes Had sex in the last 12 months (vaginal, oral, or anal)? Yes with Men only Have you ever had an STD? No LMP: 02/16/2022 PRAPARE Question Answer Notes Date Completed/Updated: 04/04/2022 What is your current housing situation? I have h ousing Are you worried about losing your housing? No What is the highest level of school that you have finished? High school diploma or GED What is your current work situation? Oth erwise unemployed but not seeking work (ex. 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 Check all that apply I do not have problems meeting my needs Has lack of transportation k ept you from medical appointments, meetings, work or from getting things needed for daily living? No How often do you see or talk to people that you care about and feel close to? (For example: talking to friends on the phone, visiting friends or family, going to jewish or club meetings) More than 5 times a week How stressed are you? Stress is when someone feels tense, nervous, anxious, or cant sleep at night because their mind is troubled A little bit In the past year have you sp ent more than 2 nights in a row in a senior living, alf, [place] [facility] [place] center, or juvenile correctional facility? No Are you a refugee? No What country are you from? [place] Do you feel physically and e motionally safe where you currently live? Yes In the past year, have you b een afraid of your partner or ex-partner? No PRAPARE Score: 4 AUDIT-C (Standard) Question Answer Notes Did you have a drink containing alcohol in the p ast year? No Points 0 Interpretation Negative Tobacco Control (Standard) Question Answer Notes Additional Findings: Tobacco user e-cigarette Problems Problem Type SNOMED Code ICD Code Onset Dates Problem Status W/U Status Risk Notes Problem Tobacco user (588451747) Nicotine dependence, unspecified, uncomplicated (F17.200) Active confirmed Problem Anxiety (19118895) Anxiety (F41.9) Active confirmed Problem Bipolar 1 disorder (536056114) Bipolar 1 disorder (F31.9) Active confirmed Problem Neuropathy (305830908) Neuropathy (G62.9) Active confirmed Problem Chronic hepatitis C (206808254) Chronic hepatitis C without hepatic coma (B18.2) Active confirmed Problem Recurrent depression (928359096) Recurrent depression (F33.9) Active confirmed Vital Signs Heart Rate 90 /min 02/17/2025 Temperature 97.1 degrees Fahrenheit 02/17/2025 Respiratory Rate 20 /min 02/17/2025 Oximetry 95 % 02/17/2025 Blood pressure diastolic 73 mm Hg 02/17/2025 Height 5ft6in in 02/17/2025 Blood pressure systolic 115 mm Hg 02/17/2025 Weight 170.2 lbs 02/17/2025 BMI 27.47 kg/m2 02/17/2025 Encounters Encounter Location Date Provider Diagnosis [place] [place] [address] 05/21/2024 Prisca zzzMurray Neuropathy G62.9 [address] [place] [address] 05/30/2024 Prisca zdonnaMurray [place] [place] [place] [address] 06/18/2024 Prisca zzzMurray Neuropathy G62.9 [address] [place] [address] 07/15/2024 Prisca zzzMurray Neuropathy G62.9 [facility] [address] [place] [address] 07/16/2024 Prisca zzzMurray Chronic constipation K59.09 [address] [place] [address] 08/19/2024 Prisca zzzMurray Neuropathy G62.9 [place] [place] [address] 10/24/2024 Prisca zzzMurray Chronic constipation K59.09 [address] [place] [address] 12/09/2024 Prisca zzzMurray Chronic constipation K59.09 [address] [place] [address] 12/22/2024 Prisca zzzMurray Bipolar 1 disorder F31.9 ; Anxiety F41.9 and Neuropathy G62.9 [address] [place] [address] 01/12/2025 Prisca zzzMurray Chronic constipation K59.09 [facility] [address] [place] [address] 01/19/2025 Jamila Maggy Anxiety F41.9 and Bipolar 1 disorder F31.9 [facility] [address] [place] [address] 01/21/2025 Marla erikaJacobdaria Neuropathy G62.9 [facility] [address] [place] [address] 02/20/2025 Jennie Harris Bipolar 1 disorder F31.9 and Neuropathy G62.9 [facility] [address] [place] [address] 03/24/2025 Jennie Harris Bipolar 1 disorder F31.9 and Neuropathy G62.9 [address] [place] [place] [address] 04/22/2025 Jennie Harris Neuropathy G62.9 [facility] [address] [place] [address] 11/21/2024 Prisca jamesMurrjacqui Sore throat J02.9 ; Neuropathy G62.9 ; Chronic constipation K59.09 ; Bipolar 1 disorder F31.9 and Anxiety F41.9 [facility] [address] [place] [address] 02/17/2025 Jennie Harris Bipolar 1 disorder F31.9 ; Anxiety F41.9 ; 17 weeks gestation of Z3A.17 and Upper respiratory tract infection, unspecified type J06.9 [facility] [address] [place] [address] 10/23/2024 Prisca zzzMurray Anxiety F41.9 ; Chronic hepatitis C without hepatic coma B18.2 ; Neuropathy G62.9 ; Seizure R56.9 and Recurrent depression F33.9 Assessments Encounter Date Diagnosis (ICD Code) Assessment Notes Treatment Notes Treatment Clinical Notes Section Notes 10/23/2024 Anxiety (ICD-10 - F41.9) Will start patient on propranolol 20mg PRN today. Discussed risks and side effects of medication including possible nausea, headache, upset stomach, diarrhea, constipation, anxiety, irritability, and sexual dysfunction. Most mild side effects improve over 4-6 weeks of use. Please monitor for worsening of symptoms, especially suicidal ideations or morbid thoughts, and call office and or go to the emergency department immediately if this occurs. Patient verbalized understanding, in agreement with plan. 11/21/2024 Sore throat (ICD-10 - J02.9) Likely post-viral. Recommended humidifier/hot shower, Vicks rub, spoon full of honey, OTC cough medications PRN. Follow up if no improvement, monitor for wheezing, increased work of breathing, worsening shortness of breath. Verbalized understanding. 11/21/2024 Neuropathy (ICD-10 - G62.9) OK to increase gabapentin to 600mg TID. OARRS report reviewed. Patient history consistent with prescribing. Refills provided today, 30 day supply. 12/09/2024 Chronic constipation (ICD-10 - K59.09) 12/22/2024 Bipolar 1 disorder (ICD-10 - F31.9) 10/23/2024 Chronic hepatitis C without hepatic coma (ICD-10 - B18.2) Will place referral to GI for further evaluation & management. Patient in agreement with plan. 10/24/2024 Chronic constipation (ICD-10 - K59.09) 05/21/2024 Neuropathy (ICD-10 - G62.9) 06/18/2024 Neuropathy (ICD-10 - G62.9) 07/15/2024 Neuropathy (ICD-10 - G62.9) 07/16/2024 Chronic constipation (ICD-10 - K59.09) 08/19/2024 Neuropathy (ICD-10 - G62.9) 01/12/2025 Chronic constipation (ICD-10 - K59.09) 01/19/2025 Anxiety (ICD-10 - F41.9) 01/21/2025 Neuropathy (ICD-10 - G62.9) 02/17/2025 Anxiety (ICD-10 - F41.9) Discontinue propranolol start celexa 10mg daily. Instructed patient to let Dr. Aparicio food services manager know she started celexa. Follow up in 3 months. All questions and concerns addressed. 02/17/2025 Bipolar 1 disorder (ICD-10 - F31.9) 02/20/2025 Bipolar 1 disorder (ICD-10 - F31.9) 03/24/2025 Bipolar 1 disorder (ICD-10 - F31.9) 04/22/2025 Neuropathy (ICD-10 - G62.9) 03/24/2025 Neuropathy (ICD-10 - G62.9) 02/20/2025 Neuropathy (ICD-10 - G62.9) 02/17/2025 17 weeks gestation of (ICD-10 - Z3A.17) 01/19/2025 Bipolar 1 disorder (ICD-10 - F31.9) 10/23/2024 Neuropathy (ICD-10 - G62.9) Will re-start gabapentin at lower dose, 300mg TID. OARRS report reviewed. Patient history appropriate. Discussed risks and side effects of medication. As medication is controlled, no more than a 30 day supply can be sent at any time. Do not mix these medications with alcohol, do not share these medications, do not sell these medications. Any misuse or abnormal drug testing will result in termination of agreement and subsequent refills. Pt verbalizes understanding. 12/22/2024 Anxiety (ICD-10 - F41.9) 11/21/2024 Chronic constipation (ICD-10 - K59.09) Will continue current medication. F/U 3 months & PRN 11/21/2024 Bipolar 1 disorder (ICD-10 - F31.9) Will continue current medication. F/U 3 months & PRN 12/22/2024 Neuropathy (ICD-10 - G62.9) 10/23/2024 Seizure (ICD-10 - R56.9) Patient reports she had seizures after taking wellbutrin in the past as well. Noted in chart to avoid any further prescribing in the future. 02/17/2025 Upper respiratory tract infection, unspecified type (ICD-10 - J06.9) Increase fluids and rest. Amoxicillin as directed. All questions and concerns addressed. 11/21/2024 Anxiety (ICD-10 - F41.9) Anxiety stable. Will continue current medication. F/U 3 months & PRN 10/23/2024 Recurrent depression (ICD-10 - F33.9) Patient denies SI/HI at this time. Reports she is going through a divorce and has been having a hard time. She will call [facility] for her follow up appt. Reviewed red flag symptoms, parameters to RTC. 02/17/2025 Other Body Mass Index : Care Instructions material was printed Plan Of Treatment No Information Insurance Providers Payer Name Payer Address Payer Phone Subscriber Number Group Number Insured Name Patient Relationship to Insured Coverage Start Date Coverage End Date [employer] [place] [employer] [address] [place] [phone] [id number] NOE ERVIN Self - patient is the insured 2 [employer] [place] [address] [place] [address] [id number] NOE ERVIN Self - patient is the insured 2 [employer] [place] [employer] [address] [address] [place] [address] [id number] NOE ERVIN Self - patient is the insured 3 [employer] [facility] [address] [place] [address] [id number] NOE ERVIN Self - patient is the insured 3 [facility] ed 22. [address] [place] [address] [id number] NOE ERVIN Self - patient is the insured 2 3 zMEDICAID [employer] after [facility] med 22 [address] [place] [address] [id number] NOE ERVIN Self - patient is the insured 2 3 Medical (General) History Medical History History ICD Code depression anxiety neuropathy FX of left cheek Hospitalization History Reason Date(Month/Year) [facility] 2024 Detox 11/20/2023 ChildBirth x3
--- OUTSIDE RECORDS SUMMARY | 2025-05-08 08:40 | XMS_ITS | Clinical Summary ---
Author Organization [facility] Address [address] [place] [address] Care Team Providers Care Snorkelling Instructor Name Role Phone Unavailable Primary Care Provider Unavailabl e Allergies Active Allergy Reactions Criticality Noted Date Comments Bupropion 01/19/2025 Other Reaction(s): Seizure Medications gabapentin (Neurontin) 600 MG tablet Take 600 mg by mouth in the morning and 600 mg in the evening and 600 mg before bedtime. Active linaCLOtide (Linzess) 145 MCG capsule Take 145 mcg by mouth in the morning. Take before meals. 01/02/20 24 Active lamoTRIgine (LaMICtal) 25 MG tablet TAKE 1 TABLET BY MOUTH EVERY DAY FOR 30 DAYS Active Vit-Fe Fumarate-FA ( Vitamins) 28-0.8 MG tabletIndications:E ncounter for supervision of normal first in first trimester ([facility]) Take 1 tablet by mouth Daily 30 tablet 11 01/02/20 25 026 Active linaCLOtide (Linzess) 145 MCG capsule 1 (one) time each day at the same time Active ondansetron (Zofran) 4 MG tabletIndications:N ausea and vomiting, unspecified vomiting type Take 1 tablet (4 mg) by mouth every 6 (six) hours if needed for nausea or vomiting for up to 30 doses Take 1 tablet by mouth every 6 hours as needed for nausea. 30 tablet 3 04/29/20 25 Active iron polysaccharides (ProFe) 391.3 (180 Fe) MG capsuleIndications: Low iron,Dizziness Take 1 capsule (391.3 mg) by mouth Daily 30 capsule 6 05/06/20 25 026 Active promethazine (Phenergan) 12.5 MG tabletIndications:N ausea Take 1 tablet (12.5 mg) by mouth every 6 (six) hours if needed for nausea or vomiting 180 tablet 1 05/06/20 25 025 Active ondansetron (Zofran) 4 MG tabletIndications:N ausea and vomiting, unspecified vomiting type Take 1 tablet (4 mg) by mouth every 6 (six) hours if needed for nausea or vomiting for up to 30 doses Take 1 tablet by mouth every 6 hours as needed for nausea. 30 tablet 3 03/11/20 25 025 Discontin ued(Reord er) ondansetron (Zofran) 4 MG tabletIndications:N ausea and vomiting, unspecified vomiting type Take 1 tablet (4 mg) by mouth every 6 (six) hours if needed for nausea or vomiting for up to 30 doses Take 1 tablet by mouth every 6 hours as needed for nausea. 30 tablet 3 04/29/20 25 025 Discontin ued(Other ) Encounters Date Type Department Care Team Description 05/06/2025 11:30 AM EDT Routine [facility] [place] [address] Yousif Aparicio DO Third trimester ([facility]); 29 weeks gestation of ([facility]); size inconsistent with dates ([facility]); Low iron; Dizziness; Nausea 05/06/2025 Bamboo flowsheet [facility] [address] [facility] [address] Yousif Aparicio DO 04/29/2025 Refill [facility] FERNANDESN [address] [facility] [place] [address] Marva Wagner LPN Nausea and vomiting, unspecified vomiting type 04/17/2025 Patient Outreach [facility] [address] [place] [address] Jody Gentile LPN 04/09/2025 9:50 AM [place] [address] Jody Kimble PA Second trimester ([facility]); 25 weeks gestation of ([facility]) 04/09/2025 [place] [address] Jody Kimble PA 04/01/2025 1:30 PM EDT Ancillary [place] [address] 03/19/2025 [place] [address] Anne-Marie Mcleod MA 03/18/2025 Patient Outreach [facility] [address] [place] [address] Jody Gentile LPN 03/11/2025 10:50 AM EDT Routine [facility] Alvaro GIANG [address] [place] [address] Yousif Aparicio DO Screening, , for anatomic survey ([facility]); Well woman exam with routine gynecological exam; Exposure to STD; Vaginal discharge; 21 weeks gestation of ([facility]); Second trimester ([facility]); Nausea and vomiting, unspecified vomiting type 03/11/2025 Clinisync Result Encounter NOMS External Department Unsolicited Yousif Aparicio, 03/11/2025 External Result Encounter NOMS External Department Unsolicited Yousif Aparicio, 03/11/2025 Bamboo flowsheet [facility] Alvaro GIANG [address] [place] [address] Yousif Aparicio DO 02/18/2025 Patient Outreach [facility] [address] [place] [address] Jody Gentile LPN from Last 3 Months Social History Tobacco Use Types Packs/Day Years Used Date Smoking Tobacco: Never Smokeless Tobacco: Never Tobacco Cessation:Counseling Given: Not Answered Alcohol Use Standard Drinks/Week Comments Never 0 [...] Sign Reading Time Taken Comments Blood Pressure 112/64 04/09/2025 10:03 AM EDT Pulse - - Temperature - - Respiratory Rate - - Oxygen Saturation - - Inhaled Oxygen Concentration - - Weight 84.9 kg (187 lb 4 oz) 05/06/2025 11:44 AM EDT Height - - Body Mass Index - - Plan of Treatment Upcoming Encounters Date Type Department Care Team (Late st Contact Info) Description 05/20/2025 9:30 AM EDT Ancillary Procedure [facility] Al[facility]o OBANGEL [address] [facility] [place] [address] 05/20/2025 9:50 AM EDT Routine [facility] GI[facility] [address] [facility] [place] [address] Violet Woody, PAYROLL EXAMINER [address] [facility] [place] [address] Health Maintenance Due Date Last Done Comments HPV/Cotest 01/12/2024 Influenza Vaccine (#1) 2025 Cervical Cancer Screening 03/11/2028 Pap Smear 03/11/2028 03/11/2025, 06/20/2023 Procedures Procedure Name Priority Date/Time Associated Diagnosis Comments POCT URINALYSIS DIPSTICK Routine 05/06/2025 11:51 AM EDT Third trimester ([facility]) POCT URINALYSIS DIPSTICK Routine 04/09/2025 10:07 AM EDT Second trimester ([facility]) US OB 14+ WEEKS ANATOMY SCAN Routine 04/01/2025 2:18 PM EDT Screening, , for anatomic survey ([facility]) RECURRENT VAGINITIS (HTRX) Routine 03/11/2025 11:55 AM EDT POCT URINALYSIS DIPSTICK Routine 03/11/2025 11:19 AM EDT 21 weeks gestation of ([facility]) Second trimester ([facility]) IGP,APTIMA HPV,AGE GDLN Routine 03/11/2025 10:58 AM EDT PAP SMEAR Routine 03/11/2025 12:00 AM EDT from Last 3 Months Results * (ABNORMAL) POCT urinalysis dipstick manually resulted (05/06/2025 11:51 AM EDT) Only the most recent of3 resultswithin the time period is included. Color, UA Yellow Clarity, UA Clear Glucose, UA Negative Negative - 2000(110) ++++ mg/dL Bilirubin, UA Negative Negative - 4(70) +++ mg/dL Ketones, UA Negative Negative - 160(16) ++++ mg/dL Spec Grav, UA 1.010 1 - 1.03 Blood, UA Positive Negative - 50 Chriss/mcL Comment:Large pH, UA 7.0 5 - 9 Protein, UA Negative Negative - 2000(20) ++++ mg/dL Urobilinogen, UA 0.2 0.2 - 12 mg/dL Leukocytes, UA Negative Negative - 500+++ Leila/mcL Nitrite, UA Negative Negative - Positive Urine 05/06/2025 11:5 1 AM EDT Yousif Aparicio DO POINT OF CARE TEST ENTER/EDIT OR DERABLES Final Result * US OB 14+ weeks anatomy scan (04/01/2025 2:18 PM EDT) Anatomical Region Laterality Modality Body Ultrasound 04/01/2025 7:53 PM EDT Impressions 04/02/2025 9:10 AM EDT Single, live intrauterine , current sonographic age of 24 weeks and 1 days, with an estimated date of delivery of July 21, 2025. * Estimated Weight (g) by Percentile is based upon an accurate estimated age based on last menstrual period. TRANSCRIBED BY: ELECTRONICALLY SIGNED BY: Kobe Sotelo MD Narrative 04/02/2025 9:10 AM EDT FINDINGS: A single, live intrauterine is present with normal cardiac rate of 148 beats per minute. Normal activity and amniotic fluid volume. is grossly normal. The cervix is long and closed, 4.4 cm. The placenta is posterior inferior aspect 4.0 cm from the closed internal cervical os. The current sonographic age is 24 weeks and 1 days, based on the following measurements: BPD 5.9 cm ( 24 weeks, 0 days) Head Circumference 21.9cm (23 weeks, 6 days) Abdominal Circumference 20.0cm ( 24 weeks, 3 days) Femur Length 4.3cm (24 weeks, 0 days) Presentation Variable Placenta Posterior Weight (g) by Percentile 50.1 % * These measurements result in an estimated date of delivery of July 21, 2025. The current estimated weight is 670 grams +/-100 grams ( 1 pound, 8 ounces). Procedure Note Kobe Sotelo MD - 04/02/2025 FINDINGS: A single, live intrauterine is present with normal cardiacrate of 148 beats per minute. Normal activity and amniotic fluidvolume. is grossly normal. The cervix is long and closed, 4.4 cm. Theplacenta is posterior inferior aspect 4.0 cm from the closed internalcervical os. The current sonographic age is 24 weeks and 1 days, based onthe following measurements: BPD 5.9 cm ( 24 weeks, 0 days) Head Circumference 21.9cm (23 weeks, 6 days) Abdominal Circumference 20.0cm ( 24 weeks, 3 days) Femur Length 4.3cm (24 weeks, 0 days) Presentation Variable Placenta Posterior Weight (g) by Percentile 50.1 % * These measurements result in an estimated date of delivery of July. The current estimated weight is 670 grams +/-100 grams (1 pound, 8 ounces). IMPRESSION: Single, live intrauterine , current sonographic age of 24 weeksand 1 days, with an estimated date of delivery of July 21, 2025. * Estimated Weight (g) by Percentile is based upon an accurateestimated age based on last menstrual period. TRANSCRIBED BY: ELECTRONICALLY SIGNED BY: Kobe Sotelo MD us Yousif Markus DO IMG OB US PROCEDURES Final Resul t * RECURRENT VAGINITIS (HTRX) (03/11/2025 11:55 AM EDT) [facility] ATOPOBIUM VAGINAE 0 19.961 - 24.689 ppm 03/12/2025 6:51 AM EDT [facility] ATOPOBIUM VAGINAE Not Detected 19.961 - 24.689 ppm 03/12/2025 6:51 AM EDT [facility] BVAB 2,3 (BACTERIAL VAGINOSIS ASSOCIATED BACTERIA 2, 3); MOBILUNCUS SPP 0 19.961 - 24.689 ppm 03/12/2025 6:51 AM EDT [facility] BVAB 2,3 (BACTERIAL VAGINOSIS ASSOCIATED BACTERIA 2, 3); MOBILUNCUS SPP Not Detected 19.961 - 24.689 ppm 03/12/2025 6:51 AM EDT [facility] TIMOTHY ALBICANS, PARAPSILOSIS, TROPICALIS 0 19.961 - 30.770 ppm 03/12/2025 6:51 AM EDT [facility] TIMOTHY ALBICANS, PARAPSILOSIS, TROPICALIS Not Detected 19.961 - 30.770 ppm 03/12/2025 6:51 AM EDT [facility] TIMOTHY GLABRATA 0 23.000 - 32.138 ppm 03/12/2025 6:51 AM EDT [facility] TIMOTHY GLABRATA Not Detected 23.000 - 32.138 ppm 03/12/2025 6:51 AM EDT [facility] TIMOTHY KRUSEI 0 23.000 - 32.271 ppm 03/12/2025 6:51 AM EDT [facility] TIMOTHY KRUSEI Not Detected 23.000 - 32.271 ppm 03/12/2025 6:51 AM EDT [facility] CHLAMYDIA TRACHOMATIS 0 23.000 - 31.467 ppm 03/12/2025 6:51 AM EDT [facility] CHLAMYDIA TRACHOMATIS Not Detected 23.000 - 31.467 ppm 03/12/2025 6:51 AM EDT [facility] GARDNERELLA VAGINALIS 0 19.961 - 24.689 ppm 03/12/2025 6:51 AM EDT [facility] GARDNERELLA VAGINALIS Not Detected 19.961 - 24.689 ppm 03/12/2025 6:51 AM EDT [facility] MEGASPHAERA (TYPES 1, 2) 0 19.961 - 24.689 ppm 03/12/2025 6:51 AM EDT [facility] MEGASPHAERA (TYPES 1, 2) Not Detected 19.961 - 24.689 ppm 03/12/2025 6:51 AM EDT [facility] NEISSERIA GONORRHOEAE 0 23.000 - 32.117 ppm 03/12/2025 6:51 AM EDT [facility] NEISSERIA GONORRHOEAE Not Detected 23.000 - 32.117 ppm 03/12/2025 6:51 AM EDT [facility] TRICHOMONAS VAGINALIS 0 23.000 - 32.119 ppm 03/12/2025 6:51 AM EDT [facility] TRICHOMONAS VAGINALIS Not Detected 23.000 - 32.119 ppm 03/12/2025 6:51 AM EDT [facility] MYCOPLASMA GENITALIUM 0 19.961 - 24.689 ppm 03/12/2025 6:51 AM EDT [facility] MYCOPLASMA GENITALIUM Not Detected 19.961 - 24.689 ppm 03/12/2025 6:51 AM EDT [facility] Tissue 03/11/2025 11:5 5 AM EDT 03/12/2025 1:28 AM EDT us Yousif Aparicio DO LAB BLOOD ORDERABLES Final Resul t [facility] [address] [place] [address] * IGP,APTIMA HPV,AGE GDLN (03/11/2025 10:58 AM EDT) AGE GDLN ACOG TESTING Note . [facility] Comment: TESTS RESULT FLAG UNITS REF RANGE LAB Clinician Provided Cytology Information Source.............End[facility]ix Other.............. No. of containers..01 ThinPrep Vial Age Algo ACOG Keira... 30-65 01 FLAG LEGEND: L-Low Normal,H-High Normal,LL-Alert Low,HH-Alert High <-Panic Low,>-Panic High,A-Abnormal,AA-Critical Abnormal Performed at: 01 =[facility] [address] [place] [address] Jesi Kuhn MD, IGP, APTIMA HPV, RFX 16/18,45 Note . [facility] Comment: TESTS RESULT FLAG UNITS REF RANGE LAB DIAGNOSIS: 02 NEGATIVE FOR INTRAEPITHELIAL LESION OR MALIGNANCY. Specimen adequacy: 02 Satisfactory for evaluation. No endocervical component is identified. Performed by: 02 Janie Almazan Blanket Cutting Machine Operator . 02 Note: Note 02 The Pap smear is a screening test designed to aid in the detection of premalignant and malignant conditions of the uterine cervix. It is not a diagnostic procedure and should not be used as the sole means of detecting cervical cancer. Both false-positive and false-negative reports do occur. Test Methodology: Note 02 This liquid based ThinPrep(R) pap test was screened with the use of an image guided system. HPV Genotype Reflex Note 02 Criteria not met, HPV Genotype not performed. FLAG LEGEND: L-Low Normal,H-High Normal,LL-Alert Low,HH-Alert High <-Panic Low,>-Panic High,A-Abnormal,AA-Critical Abnormal Performed at: [address] [address] Jesi Kuhn MD, HPV APTIMA Negative Negative [facility] Comment: This nucleic acid amplification test detects fourteen high- risk HPV types (16,18,31,33,35,39,45,51,52,56,58,59,66,68) without differentiation. Performed at: =[address] [id number] [place]: Jesi Kuhn MD, Phone: [phone] Performed at: [address] [id number] [place]: Jesi Kuhn MD, Phone: [phone] 03/11/2025 10:5 8 AM EDT 03/11/2025 2:56 PM EDT Narrative [facility] - 03/13/2025 11:09 AM EDT [facility] us Yousif Markus DO LAB BLOOD ORDERABLES Final Resul t [facility] * Pap Smear (03/11/2025 12:00 AM EDT) Swab Cervical swab / Unknown us Yousif Markus DO LAB CYTOLOGY ORDERABLES Final Re sult EXTERNAL LAB from Last 3 Months Insurance [employer]
--- OUTSIDE RECORDS SUMMARY | 2025-05-08 08:40 | XMS_ITS | Encounter Summary ---
Author Organization [facility] Address [address] [place] [address] Care Team Providers Care Bit Bender Name Role Phone Unavailable Primary Care Provider Unavailabl e Encounter Details Date Type Department Care Team (Late Contact Info) Description 01/01/2025 Abstract [facility]rie GIANG [address] [place] [address] Yousif Aparicio DO [address] [facility] [address] [place], [facility] Social History Tobacco Use Types Packs/Day Years Used Date Smoking Tobacco: Never Smokeless Tobacco: Never Alcohol Use Standard Drinks/Week Comments Never 0 (1 standard drink = 0.6 oz pur e alcohol) Estimated Date of Delivery Comme nts Yes [...] AM EDT Ancillary Procedure [facility] GI[facility] [address] [facility] [place] [address] 05/20/2025 9:50 AM EDT Routine NOMLorrie GIANG [address] [place] [address] Violet Woody, SHELL SORTER [address] [facility] [place] [address] documented as of this encounter Visit Diagnoses Not on filedocumented in this encounter
--- OUTSIDE RECORDS SUMMARY | 2025-05-08 08:40 | XMS_ITS | Encounter Summary ---
Author Organization [facility] Address [address] [place] [address] Care Team Providers Care Drawing Kiln Supervisor Name Role Phone Unavailable Primary Care Provider Unavailabl e Encounter Details Date Type Department Care Team (Late Contact Info) Description 01/01/2025 Abstract NOM[facility]rie GIANG [address] [place] [address] Yousif Aparicio DO [address] [facility] [address] [place], [facility]11 Social History Tobacco Use Types Packs/Day [...] AM EDT Ancillary Procedure [facility] GIANG [address] [facility] [place] [address] 05/20/2025 9:50 AM EDT Routine NOMLorrie GIANG [address] [place] [address] Violet Woody, SSIS DEVELOPER [address] [place] [address] documented as of this encounter Visit Diagnoses Not on filedocumented in this encounter
--- OUTSIDE RECORDS SUMMARY | 2025-05-08 08:40 | XMS_ITS | Encounter Summary ---
Author Organization [facility] Address [address] [place] [address] Care Team Providers Care Anvilsmith Name Role Phone Unavailable Primary Care Provider Unavailabl e Encounter Details Date Type Department Care Team (Late Contact Info) Description 10/31/2023 Abstract CHARBEL GIANG [address] [place] [address] Martha Rapp CNM [address] [place], [place] [phone] Social History Tobacco Use Types Packs/Day Years [...] AM EDT Ancillary Procedure CHARBEL GIANG [address] [place] [address] 05/20/2025 9:50 AM EDT Routine CHARBEL GIANG [address] [place] [address] Violet Woody, ACTUARIAL CONSULTANT [address] [place] [address] documented as of this encounter Visit Diagnoses Not on filedocumented in this encounter
--- OUTSIDE RECORDS SUMMARY | 2025-05-08 08:40 | XMS_ITS | Encounter Summary ---
Author Organization [facility] Address [address] [place] [address] Care Team Providers Care Tactical Air Control Party Name Role Phone Unavailable Primary Care Provider Unavailabl e Encounter Details Date Type Department Care Team (Late Contact Info) Description 10/30/2023 Abstract CHARBEL GIANG [address] [facility] [place] [address] Adrianna Rushing LPN [address] [facility] Zoran RUELAS [facility]11 Social History Tobacco Use Types Packs/Day Years [...] AM EDT Ancillary Procedure CHARBEL GIANG [address] [facility] [place] [address] 05/20/2025 9:50 AM EDT Routine CHARBEL GIANG [address] [facility] [place] [address] Violet Woody, DISTRICT SUPERINTENDENT [address] [facility] [place] [address] documented as of this encounter Visit Diagnoses Not on filedocumented in this encounter
--- OUTSIDE RECORDS SUMMARY | 2025-05-08 08:40 | XMS_ITS | Encounter Summary ---
Author Organization [facility] Address [address] [place] [address] Care Team Providers Care Payment Collector Name Role Phone Unavailable Primary Care Provider Unavailabl e Encounter Details Date Type Department Care Team (Late Contact Info) Description 09/24/2023 Clinisync Result Encounter NOMS External Department Unsolicited Jody Hall PA [address] [facility] [address] [place], [facility]11 Social History Tobacco Use Types Packs/Day [...] EDT Ancillary Procedure [facility] Alvaro OBGYN [address] [facility] [place] [address] 05/20/2025 9:50 AM EDT Routine [facility] Alvaro OBGYN [address] [facility] [place] [address] Violet Woody, MEDICAL BILLING SPECIALIST [address] [place] [address] documented as of this encounter Procedures Procedure Name Priority Date/Time Associated Diagnosis Comments US OB BPP W NON-STRESS 09/24/2023 7:10 AM EST documented in this encounter Results * US OB BPP W NON-STRESS (09/24/2023 7:10 AM EST) Anatomical Region Laterality Modality Other 09/24/2023 7:10 AM EST Narrative 09/24/2023 7:12 [place] [address] Ultrasound Report Signed Patient: NOE ERVIN MR#: [id number] : 1995 Acct:[id number] Age/Sex: 28 / F ADM Date: 09/21/23 Loc: US Attending Dr: Jody Hall Ordering Physician: Jody Hall Date of Service: 09/21/23 Procedure(s): US OB BPP w non-stress Accession Number(s): [id number] cc: Jody Hall; FAMILY,HEALTH [facility] [place] [id number] Patient Name: NOE ERVIN MRN: [id number] date: 1995 Sex: F Assigned Patient Location: [facility] Current Patient Location: Accession/Order Number: [id number] Exam Date: 09/21/2023 17:15 Report Date: 09/24/2023 07:10 At the request of: JODY HALL Procedure: US OB BPP w non-stress EXAMINATION: US OB BPP w non-stress HISTORY: Oligohydramnios in third trimester COMPARISON: No relevant comparison available. TECHNIQUE: Ultrasound biophysical profile was performed in the radiology department. non-reactive stress testing was performed by nursing staff in the birthing center. FINDINGS: BREATHING MOVEMENTS: 2.0 GROSS BODY MOVEMENTS: 2.0 TONE: 2.0 QUALITATIVE AMNIOTIC FLUID VOLUME: 2.0 PRESENTATION: CEPHALIC HEART RATE: 150.8 bpm H.B./min AMNIOTIC FLUID VOLUME: 10.1 cm cm GESTATIONAL AGE: 32 weeks 5 days CONCLUSION: Total biophysical profile score: 8.0 Electronically authenticated by: DILLON BAUGH Date: 09/24/2023 07:10 Dictated By: Dillon Baugh M.D. Signed By: 09/24/23711 DD/ 9 TD/TT: Medical Staff Specialist: Procedure Note Radiology, Radiologist, - 11/21/2023 [facility] [place] [id number] Ultrasound Report Signed Patient: NOE ERVIN MMR#: [id number] : 1995Acct:[id number] Age/Sex: 28 / FADM Date: 09/21/23 Loc: US Attending Dr: Jody Hall Ordering Physician: Jody Hall Date of Service: 09/21/23 Procedure(s): US OB BPP w non-stress Accession Number(s): [id number] cc: Jody Hall; FAMILY,[facility] [place] [id number] Patient Name: NOE ERVIN MRN: [id number] date: 1995 Sex: F Assigned Patient Location: [facility] Current Patient Location: Accession/Order Number: [id number] Exam Date: 09/21/2023 17:15 Report Date: 09/24/2023 07:10 At the request of: JODY HALL Procedure: US OB BPP w non-stress EXAMINATION: US OB BPP w non-stress HISTORY: Oligohydramnios in third trimester COMPARISON: No relevant comparison available. TECHNIQUE: Ultrasound biophysical profile was performed in the radiology department. non-reactive stress testing was performed by nursingstaff in the birthing center. FINDINGS: BREATHING MOVEMENTS: 2.0 GROSS BODY MOVEMENTS: 2.0 TONE: 2.0 QUALITATIVE AMNIOTIC FLUID VOLUME: 2.0 PRESENTATION: CEPHALIC HEART RATE: 150.8 bpm H.B./min AMNIOTIC FLUID VOLUME: 10.1 cm cm GESTATIONAL AGE: 32 weeks 5 days CONCLUSION: Total biophysical profile score: 8.0 Electronically authenticated by: DILLON BAUGH Date: 09/24/2023 07:10 Dictated By: Dillon Baugh M.D. Signed By:09/24/23711 DD/ 9 TD/TT: Medical Staff Specialist: us Jody UREÑA [facility] Final Result documented in this encounter Visit Diagnoses Not on filedocumented in this encounter
--- OUTSIDE RECORDS SUMMARY | 2025-05-08 08:40 | XMS_ITS | Encounter Summary ---
Author Organization [facility] Address [address] [place] [address] Care Team Providers Care Gluing Machine Adjuster Name Role Phone Unavailable Primary Care Provider Unavailabl e Encounter Details Date Type Department Care Team (Late Contact Info) Description 11/02/2023 Abstract [facility]BEL GIANG [address] [facility] [address] Adrianna Rushing LPN [address] [facility] Zoran RUELAS [facility]11 Social History Tobacco Use Types [...] AM EDT Ancillary Procedure CHARBEL GIANG [address] [facility] [place] [address] 05/20/2025 9:50 AM EDT Routine CHARBEL GIANG [address] [facility] [place] [address] Violet Woody, TICKET SCHEDULER [address] [facility] [place] [address] documented as of this encounter Visit Diagnoses Not on filedocumented in this encounter
--- OUTSIDE RECORDS SUMMARY | 2025-05-08 08:40 | XMS_ITS | Encounter Summary ---
Author Organization [facility] Address [address] [facility] [place] [address] Care Team Providers Care Clerk Typist Name Role Phone Unavailable Primary Care Provider Unavailabl e Encounter Details Date Type Department Care Team (Late Contact Info) Description 09/14/2023 Clinisync Result Encounter [facility] External Department Unsolicited Jody Hall PA [address] [place], [facility]11 Social History Tobacco Use Types Packs/Day [...] EDT Ancillary Procedure [facility] [address] [place] [id number] 05/20/2025 9:50 AM EDT Routine [facility] [address] [place] [address] Violet Woody, NEONATOLOGIST [address] [place] [phone] documented as of this encounter Procedures Procedure Name Priority Date/Time Associated Diagnosis Comments US OB BPP W NON-STRESS 09/14/2023 9:06 PM EST documented in this encounter Results * US OB BPP W NON-STRESS (09/14/2023 9:06 PM EST) Anatomical Region Laterality Modality Other 09/14/2023 9:06 PM EST Narrative 09/14/2023 9:09 [place] [address] Ultrasound Report Signed Patient: NOE ERVIN MR#: [id number] : 1995 Acct:[id number] Age/Sex: 28 / F ADM Date: 09/14/23 Loc: US Attending Dr: Jody Hall Ordering Physician: Jody Hall Date of Service: 09/14/23 Procedure(s): US OB BPP w non-stress Accession Number(s): [id number] cc: Jody Hall; FAMILY,[facility] [place] [id number] Patient Name: NOE ERVIN MRN: [id number] date: 1995 Sex: F Assigned Patient Location: US Current Patient Location: Accession/Order Number: [id number] Exam Date: 09/14/2023 17:40 Report Date: 09/14/2023 21:06 At the request of: JODY HALL Procedure: US OB BPP w non-stress EXAMINATION: US OB BPP w non-stress HISTORY: OLIGOHYDRAMNIOS IN THIRD TRIMESTER O41.03X1 COMPARISON: Ultrasound biophysical 09/11/2023 TECHNIQUE: Ultrasound biophysical profile was performed in the radiology department. BREATHING MOVEMENTS: 2.0 GROSS BODY MOVEMENTS: 2.0 TONE: 2.0 QUALITATIVE AMNIOTIC FLUID VOLUME: 2.0 PRESENTATION: CEPHALIC HEART RATE: 130.4 bpm bpm. AMNIOTIC FLUID VOLUME: 12.8 cm GESTATIONAL AGE: 31 weeks 5 days CONCLUSION: Total biophysical profile score 8.0. Electronically authenticated by: ROGELIO RODRIGUEZ Date: 09/14/2023 21:06 Dictated By: Rogelio Rodriguez M.D. Signed By: 09/14/23 2109 DD/ 05 TD/TT: Application Integration Architect: Procedure Note Radiology, Radiologist, MD - 11/21/[address] [address] Ultrasound Report Signed Patient: NOE ERVIN MMR#: [id number] : 1995Acct:[id number] Age/Sex: 28 / FADM Date: 09/14/23 Loc: US Attending Dr: Jody Hall Ordering Physician: Jody Hall Date of Service: 09/14/23 Procedure(s): US OB BPP w non-stress Accession Number(s): [id number] cc: Jody Hall; [facility] The [address] [address] Patient Name: NOE ERVIN MRN: [id number] date: 1995 Sex: F Assigned Patient Location: US Current Patient Location: Accession/Order Number: [id number] Exam Date: 09/14/2023 17:40 Report Date: 09/14/2023 21:06 At the request of: JODY HALL Procedure: US OB BPP w non-stress EXAMINATION: US OB BPP w non-stress HISTORY: OLIGOHYDRAMNIOS IN THIRD TRIMESTER O41.03X1 COMPARISON: Ultrasound biophysical 09/11/2023 TECHNIQUE: Ultrasound biophysical profile was performed in the radiology department. BREATHING MOVEMENTS: 2.0 GROSS BODY MOVEMENTS: 2.0 TONE: 2.0 QUALITATIVE AMNIOTIC FLUID VOLUME: 2.0 PRESENTATION: CEPHALIC HEART RATE: 130.4 bpm bpm. AMNIOTIC FLUID VOLUME: 12.8 cm GESTATIONAL AGE: 31 weeks 5 days CONCLUSION: Total biophysical profile score 8.0. Electronically authenticated by: ROGELIO RODRIGUEZ Date: 09/14/2023 21:06 Dictated By: Rogelio Rodriguez M.D. Signed By:09/14/232108 DD/ 05 TD/TT: Application Integration Architect: us Jody [facility] Final Result documented in this encounter Visit Diagnoses Not on filedocumented in this encounter
--- OUTSIDE RECORDS SUMMARY | 2025-05-08 08:41 | XMS_ITS | Clinical Summary ---
Author Organization [facility] Address [address] [place], [place] [id number] Care Team Providers Care Nuisance Wildlife Control Operator Name Role Phone Rodo Lincoln MD Primary Care Provider [phone] Allergies No known active allergies Medications gabapentin (NEURONTIN) 400 mg capsule Take by mouth. 08/08/2021 Active Polysaccharide Iron Complex 180 mg iron cap Take by mouth. 06/01/2021 Active aspirin 81 mg cap Take 81 mg by mouth once daily. Active ONDANSETRON HCL ORAL Take 4 mg by mouth as needed. Active Active Problems No known active problems Social History Tobacco Use Types Packs/Day Years Used Date Smoking Tobacco: Never Smokeless Tobacco: Never Alcohol Use Standard Drinks/Week Comments Not Currently 0 (1 standard drink = 0.6 oz pur e alcohol) Comments Unknown Sex and Gender Information Value Date Recorded Sex Assigned at Not on file Legal Sex Female 3:08 PM EST Gender Identity Not on file Sexual Orientation Not on file Last Filed Vital Signs Vital Sign Reading Time Taken Comments Blood Pressure 127/70 11/08/2021 11:34 AM EST Pulse 108 11/08/2021 11:34 AM EST Temperature 36.5 C (97.7 F) 11/08/2021 11:34 AM EST Respiratory Rate 16 11/08/2021 11:3 4 AM EST Oxygen Saturation 99% 11/08/2021 11: 34 AM EST Inhaled Oxygen Concentration - - Weight 93.4 kg (205 lb 12.8 oz) 022 11:34 AM EST Height - - Body Mass Index - - Plan of Treatment Health Maintenance Due Date Last Done Comments Anxiety Screening 01/12/2012 Depression Screening 01/12/2012 HIV Screening 01/12/2012 DTaP,Tdap,Td Vaccine (1 - Tdap) 2013 Hepatitis B Vaccine (1 of 3 - 19+ 3-dose series) 2013 Cervical Cancer Screening 2015 HPV Vaccine (1 - 3-dose SCDM series) 2021 Influenza Vaccine (#1) 2025 Hepatitis C Screening Completed 04/26/2020 , 11/20/2019, 06/19/2019 Insurance [facility] MEDICAID Care Teams Nuisance Wildlife Control Operator Relationship Specialty Start Date End Date Rodo Lincoln MD [address] [place] [address] PCP - General Family Medicine 11/08/21
--- OUTSIDE RECORDS SUMMARY | 2025-05-08 08:41 | XMS_ITS | Encounter Summary ---
Author Organization [facility] Address [address] [place] [address] Care Team Providers Care Section Crews Activities Clerk Name Role Phone Unavailable Primary Care Provider Unavailabl e Reason for Visit * Reason Comments Med Refill Encounter Details Date Type Department Care Team (Late st Contact Info) Description 05/07/2023 Refill NOMLorrie GIANG [address] [place] [address] Yousif Aparicio DO [address] [place], [facility]11 Missed menses Social History Tobacco Use Types Packs/Day Years [...] encounter Miscellaneous Notes * Telephone Encounter - Vannessa Begum LPN - 05/10/2023 9:05 AM EDT Approving, but needs appt for additional refills. documented in this encounter Plan of Treatment Upcoming Encounters Date Type Department Care Team (Late st Contact Info) Description 05/20/2025 9:30 AM EDT Ancillary Procedure CHARBEL GIANG [address] [place] [address] 05/20/2025 9:50 AM EDT Routine [facility] Suraj GI[facility] [address] [facility] [facility] [address] Violet Woody, DIRECTOR SURGICAL [address] [place] [address] documented as of this encounter Visit Diagnoses Diagnosis Missed menses documented in this encounter
--- OUTSIDE RECORDS SUMMARY | 2025-05-08 08:41 | XMS_ITS ---
Author Organization [facility] Address [address] [place] [address] Care Team Providers Care Inside Finisher Name Role Phone Unavailable Primary Care Provider Unavailabl e Comprehensive [facility]aternal Care ([facility]) Status:Enrolled (Active) Start date:01/19/2025 Enrollment date:01/20/2025 Enrollment reason:Identified by Health Plan Case Team Name Relationship Phone Jody Gentile LPN(Responsible Staff) Licensed [facility] Nurse [phone] Continued Care and Services Coordination
--- OUTSIDE RECORDS SUMMARY | 2025-05-08 08:41 | XMS_ITS | Encounter Summary ---
Author Organization [facility] Address [id number] [address] [place] [address] Care Team Providers Care Fan Engine Engineer Name Role Phone Prisca Dave SHELL ASSEMBLER-AIRCRAFT ENGINE MECHANIC SUPERVISOR Primary Care Provider Reason for Referral * Diagnostic Imaging (Routine) - Closed Specialty Diagnoses / Procedures Referred By Contevaristo t Referred To Contact Maternal and Medicine Diagnoses History of pre-eclampsia in prior , currently Substance abuse affecting , antepartum ([facility]) Obesity affecting in first trimester History of gestational diabetes in prior , currently Recurrent major depressive disorder, in partial remission Former smoker History of delivery Procedures [facility] with or without consult Johnathon Benedict MD [address] [place] [address] 03/17/2024 [place] [address] Phone: tel: fax: Maternal- Medicine at [address] [address] Phone: tel: fax: Referral ID Status Reason Start Date Expiration Date Visits Re quested Visits Authorized [id number] Closed 05/31/2021 05/31/2022 1 1 Encounter Details Date Type Department Care Team (Late st Contact Info) Description 05/31/2021 Orders Only Maternal- Medicine at [address] [phone] Johnathon Benedict MD [address] [place] [address] History of pre-eclampsia in prior , currently (Primary Dx); Substance abuse affecting , antepartum; Obesity affecting in first trimester; History of gestational diabetes in prior , currently ; Recurrent major depressive disorder, in partial remission ([facility]); Former smoker; History of delivery Social History Tobacco Use Types Packs/Day Years Used Date Smoking Tobacco: Former Cigarettes Smokeless Tobacco: Never Alcohol Use Standard Drinks/Week Comments No 0 (1 standard drink = 0.6 oz pur e alcohol) Childcare Answer Date Recorded Childcare Unknown 02/24/2019 Employment Answer Date Recorded Employment Unknown 02/24/2019 Purpose - Life Answer Date Recorded Purpose and direction in life Unknown Comments Yes Sex and Gender Information Value Date Recorded Sex Assigned at Not on file Legal Sex Female 12:25 PM EDT Gender Identity Not on file Sexual Orientation Not on file COVID-19 Exposure Response Date Recorded In the last month, have you been in contact with someone who was confirmed or suspected to have Coronavirus / COVID-19? No / Unsure 05/31/2021 9:52 AM EDT documented as of this encounter Plan of Treatment Not on file documented as of this encounter Results * [facility] COMPREHENSIVE ANATOMIC SURVEY (07/26/2021 11:35 AM EST) Anatomical Region Laterality Modality Pelvis Ultrasound 07/26/2021 11:3 0 AM EST Impressions 07/26/2021 11:45 AM EST IMPRESSION: 1. Single intrauterine with expected interval growth from the previous ultrasound. 2. No sonographic evidence of gross structural abnormality disclosed. 3. Transvaginal Cervical Length = 4 cm. Narrative 07/26/2021 11:45 AM EST OBSTETRICS REPORT (Signed Final 07/26/2021 11:45) PATIENT INFO: ID #: [id number] : [birth year] (26 yrs)(F) Name: NOE PRESSLEY Visit Date: 07/26/2021 11:30 SOCHKO PERFORMED BY: Performed By: Sailaja Donaldson RDMS Attending: Elias Tamayo MD Referred By: Yousif Betancur. Address: [address] [place] [address] [place] [address] Location: Maternal Medicine [place] SERVICE(S) PROVIDED: Comprehensive Anatomic Survey 86380 OB Transvaginal 20278 INDICATIONS: Suspected or known abnormality in O35.9XX0 Screening for cervical length Z36.86 History of previous with O09.899, Z86.32 gestational diabetes History of previous with pre- O09.299 eclampsia History of opiod use History of previous with O09.899 delivery, @ 36 weeks - Preeclampsia, GDM VITAL SIGNS: Weight (lb): 197 Height: 5' BMI: 38.47 EVALUATION: Num Of Fetuses: 1 Heart Rate(bpm): 153 Cardiac Activity: Present & appears normal Presentation: Cephalic Placenta: Anterior, away from cervical os P. Cord Insertion: Central Amniotic Fluid DANICA FV: Subjectively within normal limits BIOMETRY: BPD: 44.8 mm G.Age: 19w 4d 31 % OFD: 61.2 mm HC: 170.6 mm G.Age: 19w 5d 27 % AC: 153.7 mm G.Age: 20w 4d 63 % FL: 33.3 mm G.Age: 20w 3d 58 % HUM: 33.2 mm G.Age: 21w 1d 86 % CER: 20.2 mm G.Age: 19w 3d 46 % NFT: 3.22 mm NB: 5.97 mm 28 % > 1 MoM LV: 7.1 mm CM: 4.8 mm TIB: 29.1 mm G.Age: 20w 4d 69 % CI: 73.2 % 70 - 86 FL/HC: 19.5 % 16.8 - 19.8 HC/AC: 1.11 1.09 - 1.39 FL/BPD: 74.3 % FL/AC: 21.7 % 20 - 24 Est. FW: 350 gm 0 lb 12 oz 67 % OB HISTORY: : 4 Term: 1 Judd: 1 SAB: 1 Livin GESTATIONAL AGE: LMP: 21w 2d Date: 02/27/21 ANGELA: 12/04/21 U/S Today: 20w 1d ANGELA: 12/12/21 Best: 20w 0d Det. By: Early ANGELA: 12/13/21 Ultrasound (05/10/21) TARGETED ANATOMY: Central Nervous System Calvarium/Cranial V.: Appears normal Intracranial Yoon: Appears normal Cavum: Appears normal Lateral Ventricles: Appears normal Choroid Plexus: Appears normal Cereb./Vermis: Appears normal Cisterna Magna: Appears normal Midline Falx: Appears Normal Spine Cervical: Appears normal Thoracic: Appears normal Lumbar: Appears normal Sacral: Appears normal Head/Neck Face: Appears normal Lips: Appears normal Neck: Appears normal Nuchal Fold: Appears normal Nasal Bone: Present Palate: Appears normal Profile: Appears normal Orbits/Eyes: Appears normal Mandible: Appears Normal Maxilla: Appears normal Thorax Thoracic Contour: Appears normal Lungs: Appears normal 4 Chamber View: Appears normal Cardiac Motion: Appears normal Cardiac Rhythm: Normal Rt Outflow Tract: Appears normal Lt Outflow Tract: Appears normal Aortic Arch: Appears normal Ductal Arch: Appears normal SVC: Appears Normal Cardiac Robinson: Appears normal Diaphragm: Appears normal 3 Vessel View: Appears normal IVC: Appears normal Abdomen Ventral Wall: Appears normal Cord Insertion: Appears normal Situs: Appears normal Stomach: Appears normal Lt Kidney: Appears normal Rt Kidney: Appears normal Bladder: Appears normal Bowel: Appears normal Extremities Lt Humerus: Appears normal Rt Humerus: Appears normal Lt Forearm: Appears normal Rt Forearm: Appears normal Lt Hand: Appears normal Rt Hand: Appears normal Lt Femur: Appears normal Rt Femur: Appears normal Lt Lower Leg: Appears normal Rt Lower Leg: Appears normal Lt Foot: Appears normal Rt Foot: Appears normal Other Umbilical Cord: Appears normal Masses: None visualized Genitalia: Female CERVIX UTERUS ADNEXA: Cervix Length: 4 cm. Appears closed, without funnelling Uterus Gravid uterus Left Ovary Size(cm) 2.6 x 1.2 x 1.3 Vol(ml): 2.12 Right Ovary Not visualized Cul De Sac No fluid seen Adnexa No adnexal masses identified COMMENTS: 1. Ultrasound is not diagnostic for chromosomal abnormalities, will not detect all structural abnormalities, and is not diagnostic for genetic disorders even if multiple exams are performed during a given . 2. In addition to the trans abdominal approach, a trans vaginal ultrasound was also performed to optimize the visualization of the lower uterine segment and the cervix. RECOMMENDATIONS: 1. Subsequent follow up or other follow up as clinically determined by primary OB provider unless otherwise specified by MFM. 2. Results forwarded to ordering provider so they can follow up with the patient as necessary. Elias Tamayo MD Electronically Signed Final Report 07/26/2021 11:45 Procedure Elias Whitt MD - 07/26/2021 OBSTETRICS REPORT (Signed Final 07/26/2021 11:45) PATIENT INFO: ID #: [id number] : [birth year] (26 yrs)(F) Name: NOE PRESSLEY Visit Date: 07/26/2021 11:30 SOCHKO PERFORMED BY: Performed By: Sailaja Donaldson RDMS Attending: Elias Tamayo MD Referred By: Yousif Aparicio DO Ref. Address: [address] [place] [address] [place] [address] Location: Maternal Medicine [place] SERVICE(S) PROVIDED: Comprehensive Anatomic Survey 77172 OB Transvaginal 93024 INDICATIONS: Suspected or known abnormality in O35.9XX0 Screening for cervical length Z36.86 History of previous with O09.899, Z86.32 gestational diabetes History of previous with pre- O09.299 eclampsia History of opiod use History of previous with O09.899 delivery, @ 36 weeks - Preeclampsia, GDM VITAL SIGNS: Weight (lb): 197 Height: 5' BMI: 38.47 EVALUATION: Num Of Fetuses: 1 Heart Rate(bpm): 153 Cardiac Activity: Present & appears normal Presentation: Cephalic Placenta: Anterior, away from cervical os P. Cord Insertion: Central Amniotic Fluid DANICA FV: Subjectively within normal limits BIOMETRY: BPD: 44.8 mm G.Age: 19w 4d 31 % OFD: 61.2 mm HC: 170.6 mm G.Age: 19w 5d 27 % AC: 153.7 mm G.Age: 20w 4d 63 % FL: 33.3 mm G.Age: 20w 3d 58 % HUM: 33.2 mm G.Age: 21w 1d 86 % CER: 20.2 mm G.Age: 19w 3d 46 % NFT: 3.22 mm NB: 5.97 mm 28 % > 1 MoM LV: 7.1 mm CM: 4.8 mm TIB: 29.1 mm G.Age: 20w 4d 69 % CI: 73.2 % 70 - 86 FL/HC: 19.5 % 16.8 - 19.8 HC/AC: 1.11 1.09 - 1.39 FL/BPD: 74.3 % FL/AC: 21.7 % 20 - 24 Est. FW: 350 gm 0 lb 12 oz 67 % OB HISTORY: : 4 Term: 1 Judd: 1 SAB: 1 Livin GESTATIONAL AGE: LMP: 21w 2d Date: 02/27/21 ANGELA: 12/04/21 U/S Today: 20w 1d ANGELA: 12/12/21 Best: 20w 0d Det. By: Early ANGELA: 12/13/21 Ultrasound (05/10/21) TARGETED ANATOMY: Central Nervous System Calvarium/Cranial V.: Appears normal Intracranial Yoon: Appears normal Cavum: Appears normal Lateral Ventricles: Appears normal Choroid Plexus: Appears normal Cereb./Vermis: Appears normal Cisterna Magna: Appears normal Midline Falx: Appears Normal Spine Cervical: Appears normal Thoracic: Appears normal Lumbar: Appears normal Sacral: Appears normal Head/Neck Face: Appears normal Lips: Appears normal Neck: Appears normal Nuchal Fold: Appears normal Nasal Bone: Present Palate: Appears normal Profile: Appears normal Orbits/Eyes: Appears normal Mandible: Appears Normal Maxilla: Appears normal Thorax Thoracic Contour: Appears normal Lungs: Appears normal 4 Chamber View: Appears normal Cardiac Motion: Appears normal Cardiac Rhythm: Normal Rt Outflow Tract: Appears normal Lt Outflow Tract: Appears normal Aortic Arch: Appears normal Ductal Arch: Appears normal SVC: Appears Normal Cardiac Robinson: Appears normal Diaphragm: Appears normal 3 Vessel View: Appears normal IVC: Appears normal Abdomen Ventral Wall: Appears normal Cord Insertion: Appears normal Situs: Appears normal Stomach: Appears normal Lt Kidney: Appears normal Rt Kidney: Appears normal Bladder: Appears normal Bowel: Appears normal Extremities Lt Humerus: Appears normal Rt Humerus: Appears normal Lt Forearm: Appears normal Rt Forearm: Appears normal Lt Hand: Appears normal Rt Hand: Appears normal Lt Femur: Appears normal Rt Femur: Appears normal Lt Lower Leg: Appears normal Rt Lower Leg: Appears normal Lt Foot: Appears normal Rt Foot: Appears normal Other Umbilical Cord: Appears normal Masses: None visualized Genitalia: Female CERVIX UTERUS ADNEXA: Cervix Length: 4 cm. Appears closed, without funnelling Uterus Gravid uterus Left Ovary Size(cm) 2.6 x 1.2 x 1.3 Vol(ml): 2.12 Right Ovary Not visualized Cul De Sac No fluid seen Adnexa No adnexal masses identified COMMENTS: 1. Ultrasound is not diagnostic for chromosomal abnormalities, will not detect all structural abnormalities, and is not diagnostic for genetic disorders even if multiple exams are performed during a given . 2. In addition to the trans abdominal approach, a trans vaginal ultrasound was also performed to optimize the visualization of the lower uterine segment and the cervix. RECOMMENDATIONS: 1. Subsequent follow up or other follow up as clinically determined by primary OB provider unless otherwise specified by MFM. 2. Results forwarded to ordering provider so they can follow up with the patient as necessary. Elias Tamayo MD Electronically Signed Final Report 07/26/2021 11:45 IMPRESSION: IMPRESSION: 1. Single intrauterine with expected interval growth from the previous ultrasound. 2. No sonographic evidence of gross structural abnormality disclosed. 3. Transvaginal Cervical Length = 4 cm. us Johnathon Benedict MD IMG US ORDERABLES Final Result documented in this encounter Visit Diagnoses Diagnosis History of pre-eclampsia in prior , currently - Primary with other poor obstetric history Substance abuse affecting , antepartum ([facility]) Obesity affecting in first trimester History of gestational diabetes in prior , currently with other poor obstetric history Recurrent major depressive disorder, in partial remission Former smoker Personal history of tobacco use, presenting hazards to health History of delivery History of pre-eclampsia in prior , currently with other poor obstetric history Substance abuse affecting , antepartum ([facility]) Obesity affecting in first trimester History of gestational diabetes in prior , currently with other poor obstetric history Recurrent major depressive disorder, in partial remission Former smoker Personal history of tobacco use, presenting hazards to health History of delivery Maternal care for (suspected) abnormality and damage, unspecified, not applicable or unspecified Encounter for screening for cervical length Supervision of other high risk pregnancies, unspecified trimester documented in this encounter Additional Health Concerns Infection Onset Date Last Indicated Resolved Time COVID-19 Rule-Out 04/24/2023 04/24/2023 04/24/2023 9:27 PM EDT documented as of this encounter Care Teams Fan Engine Engineer Relationship Specialty Start Date End Date Prisca Dave APRN-MARIANO [address] [place] [address] PCP - General Family Medicine 04/24/23 documented as of this encounter
--- OUTSIDE RECORDS SUMMARY | 2025-05-08 08:41 | XMS_ITS | Encounter Summary ---
Author Organization [facility] Address [address] [place] [address] Care Team Providers Care Test Engineering Technician Name Role Phone Unavailable Primary Care Provider Unavailabl e Encounter Details Date Type Department Care Team ([facility] Contact Info) Description 06/01/2023 Abstract CHARBEL GIANG [address] [place] [address] Jody Kimble PA [address] [place], [facility] Social History Tobacco Use Types Packs/Day [...] Upcoming Encounters Date Type Department Care Team ([facility] Contact Info) Description 05/20/2025 9:30 AM EDT Ancillary Procedure CHARBEL GIANG [address] [place] [address] [place] [address] 05/20/2025 9:50 AM EDT Routine CHARBEL GIANG [address] [place], [place] [address] [address] Violet Woody, STAMP REDEMPTION CLERK [address] [place] [address] documented as of this encounter Visit Diagnoses Not on filedocumented in this encounter
--- OUTSIDE RECORDS SUMMARY | 2025-05-08 08:42 | XMS_ITS | CCD ---
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 known active problems 12-12-2021 Results Test Name Value Interpretation Reference Range Facility Urinalysis macro (dipstick) panel (U)on 04-09-2025 Bilirubin, UA Negative Negative - 4(70) +++ mg/dL [facility] Blood, UA Negative Negative - 50 Chriss/mcL [facility] Clarity, UA Clear [facility] Color, UA Yellow [facility] Glucose, UA Negative Negative - 2000(110) ++++ mg/dL [facility] Interpretation and review of laboratory results Abnormal [facility] Ketones, UA Negative Negative - 160(16) ++++ mg/dL [facility] Leukocytes, UA Negative Negative - 500+++ Leila/mcL [facility] Nitrite, UA Negative Negative - Positive [facility] pH, UA 8 5 - 9 [facility] Protein, UA Trace Negative - 1999(20) ++++ mg/dL [facility] Spec Grav, UA 1.01 1 - 1.03 [facility] Urobilinogen, UA 0.2 0.2 - 12 mg/dL [facility] IGP,APTIMA HPV,AGE GDLNon -2024 AGE GDLN ACOG TESTING Note . [facility] Comment on above: TESTS RESULT FLAG UN ITS REF RANGE LAB Clinician Provided Cytology Information Source.............[employer] Other.............. No. of containers..01 ThinPrep Vial Age Algo ACOG Keira... 30-65 01 FLAG LEGEND: L-Low Normal,H-High Normal,LL-Alert Low,HH-Alert High <-Panic Low,>-Panic High,A-Abnormal,AA-Critical Abnormal Performed at: 01 =G [facility] [id number] Jesi Kuhn MD, HPV APTIMA Negative Negative [facility] Comment on above: This nucleic acid am plification test detects fourteen high- risk HPV types (16,18,31,33,35,39,45,51,52,56,58,59,66,68) without differentiation. Performed at: =G - [facility] [id number] Soft Iron Inspector: Jesi Kuhn MD, Phone: [phone] Performed at: - [facility], [place] [id number] Soft Iron Inspector: Jesi Kuhn MD, Phone: [phone] IGP, APTIMA HPV, RFX 16/18,45 Note . [facility] Comment on above: TESTS RESULT FLAG U NITS REF RANGE LAB DIAGNOSIS: 02 NEGATIVE FOR INTRAEPITHELIAL LESION OR MALIGNANCY. Specimen adequacy: 02 Satisfactory for evaluation. No endocervical component is identified. Performed by: Leonardo Almazan, Hospitalist . 02 Note: Note 02 The Pap [...] <-Panic Low,>-Panic High,A-Abnormal,AA-Critical Abnormal Performed at: [address] [facility] [address] [place] [address] Jesi Kuhn MD, SPATULA-ALONE [facility] RECURRENT VAGINITIS (HTRX)on 03-12-2025 ATOPOBIUM VAGINAE 0 [facility] ATOPOBIUM VAGINAE Not detected [facility] BVAB 2,3 (BACTERIAL VAGINOSIS ASSOCIATED BACTERIA 2, 3); MOBILUNCUS SPP 0 [facility] BVAB 2,3 (BACTERIAL VAGINOSIS ASSOCIATED BACTERIA 2, 3); MOBILUNCUS SPP Not detected [facility] TIMOTHY ALBICANS, PARAPSILOSIS, TROPICALIS 0 [facility] Healthcare ITMOTHY ALBICANS, PARAPSILOSIS, TROPICALIS Not detected [facility] TIMOTHY GLABRATA 0 [facility] TIMOTHY GLABRATA Not detected [facility] TIMOTHY KRUSEI 0 [facility] TIMOTHY KRUSEI Not detected [facility] CHLAMYDIA TRACHOMATIS 0 [facility] CHLAMYDIA TRACHOMATIS Not detected N [facility] GARDNERELLA VAGINALIS 0 [facility] S [facility] GARDNERELLA VAGINALIS Not detected N S [facility] MEGASPHAERA (TYPES 1, 2) 0 [facility] MEGAS[facility]A (TYPES 1, 2) Not detected [facility] MYCOPLASMA GENITALIUM 0 [facility] S Healthcare MYCOPLASMA GENITALIUM Not detected N S Healthcare NEISSERIA GONORRHOEAE 0 [facility] Healthcare NEISSERIA GONORRHOEAE Not detected N S Healthcare TRICHOMONAS VAGINALIS 0 [facility] Healthcare TRICHOMONAS VAGINALIS Not detected N [facility] Healthcare US OB 14+ WEEKS ANATOMY SCAN on 03-11-2025 US OB 14+ WEEKS ANATOMY SCAN FINDINGS: A single, live intrauterine is present [...] +/-100 grams ( 1 pound, 8 ounces). IMPRESSION: Single, live intrauterine , current sonographic age of 24 weeks and 1 days, with an estimated date of delivery of July 21, 2025. * Estimated Weight (g) by Percentile is based upon an accurate estimated age based on last menstrual period. TRANSCRIBED BY: ELECTRONICALLY SIGNED BY: Kobe Sotelo MD Normal Not Available Comment on above: Order Comment: US OB ANATOMY SINGLE W US OB CERVICAL LENGTH Estimated Date of Delivery: 07/22/25 Gestational Age as of 03/11/2025: 21w0d Urinalysis macro (dipstick) panel (U)on 03-11-2025 Bilirubin, UA Negative Negative - 4(70) +++ mg/dL [facility] Blood, UA Negative Negative - 50 Chriss/mcL [facility] Healthcare Clarity, UA Clear [facility] Color, UA Yellow [facility] Glucose, UA Negative Negative - 1999(110) ++++ mg/dL [facility] Interpretation and review of laboratory results Normal [facility] Healthcare Ketones, UA Negative Negative - 160(16) ++++ mg/dL [facility] Healthcare Leukocytes, UA Negative Negative - 500+++ Leila/mcL [facility] Healthcare Nitrite, UA Negative Negative - Positive [facility] pH, UA 8.5 5 - 9 [facility] Healthcare Protein, UA Negative Negative - 1999(20) ++++ mg/dL [facility] Healthcare Spec Grav, UA 1.02 1 - 1.03 [facility] Healthcare Urobilinogen, UA 0.2 0.2 - 12 mg/dL [facility] Healthcare [facility] Healthcare Urinalysis macro (dipstick) panel (U)on 01-19-2025 Bilirubin, UA Negative Negative - 4(70) +++ mg/dL [facility] Blood, UA Positive Negative - 50 Chriss/mcL [facility] Comment on above: large Clarity, UA Cloudy [facility] Color, UA Yellow [facility] Glucose, UA Negative Negative - 1999(110) ++++ mg/dL [facility] Interpretation and review of laboratory results Abnormal [facility] Ketones, UA Negative Negative - 160(16) ++++ mg/dL [facility] Leukocytes, UA Trace Negative - 500+++ Leila/mcL [facility] Nitrite, UA Negative Negative - Positive [facility] pH, UA 7.5 5 - 9 [facility] Protein, UA Trace Negative - 1999(20) ++++ mg/dL [facility] Spec Grav, UA 1.02 1 - 1.03 [facility] Urobilinogen, UA 1.0 0.2 - 12 mg/dL [facility] BOX TESTon 01-07-2025 BOX TEST SENT OUT JB [facility] BOX1 [facility]B [facility] BOX2 01/07/2025 [facility] HCG ( test) Ql (U)o n 01-01-2025 Preg Test, Ur Positive Negative [facility] No Panel Informationon 01-01 Interpretation and review of laboratory results Abnormal [facility] US OB TRANSVAGINALon 025 US OB TRANSVAGINAL EXAM: US OB TRANSVAG INAL HISTORY: Dating. A1. LMP 10/21/2024. COMPARISON: None available. TECHNIQUE: Two-dimensional transabdominal grayscale, color and spectral Doppler ultrasound imaging of the pelvis was performed. FINDINGS: The uterus demonstrates a normal homogeneous echotexture. The cervical os is closed. The right ovary measures 3.6 x 2.3 x 2.5 cm and demonstrates a normal echotexture with a corpus luteal cyst. There is normal color Doppler flow. The left ovary measures 2.4 x 1.2 x 1.8 cm and demonstrates a normal echotexture. There is normal color Doppler flow. No fluid is present within the cul-de-sac. There is a single, live intrauterine gestation identified with a heart rate of 167 beats per minute and a crown-rump length measurement of 4.4 cm, correlating to a gestational age of 11 weeks 1 days (+/- 7 days). There is no subchorionic hemorrhage visualized. A yolk sac is visualized. IMPRESSION: 1. Single, live intrauterine gestation 10 weeks, 2 days by LMP. Today's ultrasound measurements correlate with a gestational age of 11 weeks 1 days (+/- 7 days). ANGELA by today's ultrasound is July 22, 2025. 2. Right ovarian corpus luteal cyst. 3. Normal color Doppler evaluation of the bilateral ovaries. Interpreted by: Electronically signed by LISSET HUERTA II, MD, PHD at 08-Jan-2025 02:06:49 PM [facility] Normal Not Available Comment on above: Order Comment: US OB TRANSVAGINAL No LMP recorded. Urinalysis macro (dipstick) panel (U)on 01-01-2025 Bilirubin, UA Negative Negative - 4(70) +++ mg/dL [facility] Blood, UA Negative Negative - 50 Chriss/mcL [facility] Clarity, UA Clear [facility] Color, UA Yellow [facility] Glucose, UA Negative Negative - 1999(110) ++++ mg/dL [facility] Ketones, UA Negative Negative - 160(16) ++++ mg/dL [facility] Leukocytes, UA Trace Negative - 500+++ Leila/mcL [facility] Nitrite, UA Negative Negative - Positive [facility] pH, UA 7 5 - 9 [facility] Protein, UA Negative Negative - 1999(20) ++++ mg/dL [facility] Spec Grav, UA 1.02 1 - 1.03 [facility] Urobilinogen, UA 0.2 0.2 - 12 mg/dL [facility] Alanine aminotransferase [En zymatic activity/volume] in Serum or PlasmaOrdered By: Dane Erwin on 10-19-2024 ALT [Catalytic activity/Vol] Alanine aminotransferase [Enzymatic activity/volume] in Serum or Plasma High 7-52 [facility] Albumin [Mass/volume] in Ser um or Plasma by Bromocresol green (BCG) dye binding methoOrdered By: Dane Erwin on 10-19-2024 Albumin BCG dye [Mass/Vol] Albumin [Mass/volume] in Serum or Plasma by Bromocresol green (BCG) dye binding metho 3.5-5.7 [facility] Alkaline phosphatase [Enzyma tic activity/volume] in Serum or PlasmaOrdered By: Dane Erwin on 10-19-2024 ALP [Catalytic activity/Vol] Alkaline phosphatase [Enzymatic activity/volume] in Serum or Plasma High 34-104 [facility] Aspartate aminotransferase [ Enzymatic activity/volume] in Serum or PlasmaOrdered By: Dane Erwin on 10-19-2024 AST [Catalytic activity/Vol] Aspartate aminotransferase [Enzymatic activity/volume] in Serum or Plasma 13-39 [facility] Bilirubin.total [Mass/volume ] in Serum or PlasmaOrdered By: Dane Erwin on 10-19-2024 Bilirubin [Mass/Vol] Bilirubin.total [Mass/volume] in Serum or Plasma 0.3-1.0 [facility] Calcium [Mass/volume] in Ser um or PlasmaOrdered By: Dane Erwin on 10-19-2024 Calcium [Mass/Vol] Calcium [Mass/volume ] in Serum or Plasma 8.6-10.3 [facility] Carbon dioxide, total [Moles /volume] in Serum or PlasmaOrdered By: Dane Erwin on 10-19-2024 CO2 [Moles/Vol] Carbon dioxide, tota l [Moles/volume] in Serum or Plasma High 21.0-31.0 [facility] Chloride [Moles/volume] in S lizette or PlasmaOrdered By: Dane Erwin on 10-19-2024 Chloride [Moles/Vol] Chloride [Moles/vol ume] in Serum or Plasma 98-107 [facility] Comprehensive Metabolic Pane perez 10-19-2024 Albumin [Mass/Vol] 4.0 g/dL Normal 3.5-5.7 [facility] Comment on above: Performed By: #### C MP #### [address] Albumin/Globulin [Mass ratio] 1.7 {ratio} Normal [facility] Comment on above: Performed By: #### C MP #### [address] ALP [Catalytic activity/Vol] 117 U/L High 34-104 [facility] Comment on above: Performed By: #### C MP #### [facility] [address] [place] [address] [place] ALT [Catalytic activity/Vol] 131 U/L High 7-52 [facility] Comment on above: Performed By: #### C MP #### [address] Anion gap [Moles/Vol] 9.1 mmol/L Normal 6.0-15.0 [facility] Comment on above: Performed By: #### C MP #### [place] [address] [place] AST [Catalytic activity/Vol] 34 U/L Normal 13-39 [facility] Comment on above: Performed By: #### C MP #### [address] Bilirubin [Mass/Vol] 0.5 mg/dL Normal 0.3-1.0 [facility] Comment on above: Performed By: #### C MP #### [address] Calcium [Mass/Vol] 9.8 mg/dL Normal 8.6-10.3 [facility] Comment on above: Performed By: #### C MP #### [address] Chloride [Moles/Vol] 101 mmol/L Normal 98-107 [facility] Comment on above: Performed By: #### C MP #### [address] CO2 [Moles/Vol] 33.1 mmol/L High 21.0-31.0 [facility] Comment on above: Performed By: #### C MP #### [address] Creatinine [Mass/Vol] 0.74 mg/dL Normal 0.60-1.20 [facility] Comment on above: Performed By: #### C MP #### [address] Creatinine Clr Calc Pharmacy 98.70 Normal [facility] Comment on above: Result Comment: PERF ORMED BY: [place] [address] PATHOLOGIST BLACK TOP MACHINE OPERATOR MARQUITA BOLAÑOS M.D. Performed By: #### C MP #### [place] [address] [place] GFR/1.73 sq M.predicted MDRD (S/P/Bld) [Vol rate/Area] mL/min/{1.73_m2} Normal [facility] Comment on above: Performed By: #### C MP #### [address] [place] [address] [place] Globulin (S) [Mass/Vol] 2.4 g/dL Normal [facility] Comment on above: Performed By: #### C MP #### [address] Glucose [Mass/Vol] 67 mg/dL Low 70-100 [facility] Comment on above: Result Comment: [facility] Glucose Reference Range is dependent on time and content of last meal. Glucose of more than 200 mg/dL in a nonstressed, ambulatory subject supports the diagnosis of Diabetes Mellitus. ADA recommended reference range Performed By: #### C MP #### [address] Potassium [Moles/Vol] 4.2 mmol/L Normal 3.5-5.1 [facility] Comment on above: Performed By: #### C MP #### [address] Protein [Mass/Vol] 6.4 g/dL Normal 6.4-8.9 [facility] Comment on above: Performed By: #### C MP #### [address] Sodium [Moles/Vol] 139 mmol/L Normal 136-145 [facility] Comment on above: Performed By: #### C MP #### [address] Urea nitrogen [Mass/Vol] 17 mg/dL Normal 7-25 [facility] Comment on above: Performed By: #### C MP #### [address] Creatinine [Mass/volume] in Serum or PlasmaOrdered By: Dane Erwin on 10-19-2024 Creatinine [Mass/Vol] Creatinine [Mass/v olume] in Serum or Plasma 0.60-1.20 [facility] Globulin Calc (S) [Mass/Vol] Ordered By: Dane Erwin on 10-19-2024 Globulin (S) [Mass/Vol] Serum globulin measurement by calculation (mass/volume) [facility] Glucose [Mass/volume] in Ser um or PlasmaOrdered By: Dane Erwin on 10-19-2024 Glucose [Mass/Vol] Glucose [Mass/volume ] in Serum or Plasma Low 70-100 [facility] Comment on above: ADA recommended refe rence rangeRandom Glucose Reference Range is dependent on time and content of last meal. Glucose of more than 200 mg/dL in a nonstressed, ambulatory subject supports the diagnosis of Diabetes Mellitus. No Panel InformationOrdered By: Dane Erwin on 10-19-2024 Estimated GFR (CKD-EPI) > 60.0 mL/Min [facility] Creatinine Clearance (Chem 98.70 [facility] Potassium [Moles/volume] in Serum or PlasmaOrdered By: Dane Erwin on 10-19-2024 Potassium [Moles/Vol] Potassium [Moles/v olume] in Serum or Plasma 3.5-5.1 [facility] Protein [Mass/volume] in Ser um or PlasmaOrdered By: Dane Erwin on 10-19-2024 Protein [Mass/Vol] Protein [Mass/volume ] in Serum or Plasma 6.4-8.9 [facility] Serum or plasma albumin/glob ulin mass ratioOrdered By: Dane Erwin on 10-19-2024 Albumin/Globulin [Mass ratio] Serum or plasma albumin/globulin mass ratio [facility] Serum or plasma anion gap de terminationOrdered By: Dane Erwin on 10-19-2024 Anion gap [Moles/Vol] Serum or plasma an ion gap determination 6.0-15.0 [facility] Sodium [Moles/volume] in Ser um or PlasmaOrdered By: Dane Erwin on 10-19-2024 Sodium [Moles/Vol] Sodium [Moles/volume ] in Serum or Plasma 136-145 [facility] Urea nitrogen [Mass/volume] in Serum or PlasmaOrdered By: Dane Erwin on 10-19-2024 Urea nitrogen [Mass/Vol] Urea nitrogen [Mass/volume] in Serum or Plasma 7-25 [facility] Cholesterol [Mass/volume] in Serum or PlasmaOrdered By: Dane Erwin on 10-18-2024 Cholesterol [Mass/Vol] Cholesterol [Mass /volume] in Serum or Plasma Low 140-200 [facility] Comment on above: Chol less than 200 m g/dl low riskChol 201-239 mg/dl borderline riskChol 240 mg/dl and greater high risk Cholesterol in HDL [Mass/vol ume] in Serum or PlasmaOrdered By: Dane Erwin on 10-18-2024 Cholesterol in HDL [Mass/Vol] Serum or plasma high density lipoprotein (HDL) cholesterol measurement [facility] Comment on above: HDL CHOL ATP-III CLA SSIFICATION Cardiovascular RiskHDL > or equal to 60 mg/dL LOWHDL < 40 mg/dL HIGH Cholesterol in LDL Calc [Mas s/Vol]Ordered By: Dane Erwin on 10-18-2024 Cholesterol in LDL [Mass/Vol] Cholesterol in LDL [Mass/volume] in Serum or Plasma by calculation 0-100 [facility] Comment on above: LDL ATP III CLASSIFI CATIONLDL less than 100 mg/dL OptimalLDL 100-129 mg/dL Near or above optimalLDL 130-159 mg/dL Borderline highLDL 160-189 mg/dL HighLDL greater than 189 mg/dL Very high Cholesterol in VLDL Calc [Ma ss/Vol]Ordered By: Dane Erwin on 10-18-2024 Cholesterol in VLDL [Mass/Vol] Cholesterol in VLDL [Mass/volume] in Serum or Plasma by calculation [facility] Lipid Panelon 10-18-2024 Cholesterol [Mass/Vol] 115 mg/dL Low 140-200 [facility] Comment on above: Result Comment: Chol less than 200 mg/dl low risk Chol 201-239 mg/dl borderline risk Chol 240 mg/dl and greater high risk Performed By: #### U RDS #### [address] Cholesterol in HDL [Mass/Vol] 36 mg/dL Normal [facility] Comment on above: Result Comment: HDL CHOL ATP-III CLASSIFICATION Cardiovascular Risk HDL > or equal to 60 mg/dL LOW HDL < 40 mg/dL HIGH Performed By: #### U RDS #### [address] Cholesterol.total/Chol esterol in HDL [Mass ratio] 3.2 {ratio} Normal <5.0 [facility] Comment on above: Performed By: #### U RDS #### [address] LDL Cholesterol,Calculated 55 mg/dL Normal 0-100 [facility] Comment on above: Result Comment: LDL ATP III CLASSIFICATION LDL less than 100 mg/dL Optimal LDL 100-129 mg/dL Near or above optimal LDL 130-159 mg/dL Borderline high LDL 160-189 mg/dL High LDL greater than 189 mg/dL Very high Performed By: #### U RDS #### [address] Triglyceride w/Reflex 120 mg/dL Normal 0-149 [facility] Comment on above: Result Comment: TRIG ATP III CLASSIFICATION TRIG less than 150 mg/dL Normal TRIG 150-199 mg/dL Borderline high TRIG 200-500 mg/dL High TRIG greater than 500 mg/dL Very high Standard traceable to the Center for Disease Conrtrol and Prevention (CDC) test method. Performed By: #### U RDS #### [address] VLDL CHOLESTEROL 24 mg/dL Normal [facility] Comment on above: Performed By: #### U RDS #### [address] Serum or plasma total choles terol/high density lipoprotein (HDL) cholesterol mass ratOrdered By: Dane Erwin on 10-18-2024 Cholesterol.total/Chol esterol in HDL [Mass ratio] Serum or plasma total cholesterol/high density lipoprotein (HDL) cholesterol mass rat <5.0 [facility] Thyroid Stim Hormone w/Rflxo n 10-18-2024 Thyroid Stim Hormone w/Rflx 2.83 u[iU]/mL Normal 0.45-5.33 [facility] Comment on above: Performed By: #### U RDS #### [address] [place] [address] [facility] Thyrotropin [Units/volume] i n Serum or PlasmaOrdered By: Dane Erwin on 10-18-2024 TSH Qn Thyrotropin [Units/volume] in Serum or Plasma 0.45-5.33 [facility] Triglyceride [Mass/volume] i n Serum or PlasmaOrdered By: Dane Erwin on 10-18-2024 Triglyceride [Mass/Vol] Triglyceride [Mass/volume] in Serum or Plasma 0-149 [facility] Comment on above: TRIG ATP III CLASSIF ICATIONTRIG less than 150 mg/dL NormalTRIG 150-199 mg/dL Borderline highTRIG 200-500 mg/dL High TRIG greater than 500 mg/dL Very highStandard traceable to the Center for Disease Conrtrol and Prevention (CDC) test method. Vitamin D 25 Hydroxy Totalon 10-18-2024 Vitamin D 25 Hydroxy Total 10.8 ng/mL Low 30-100 [facility] Comment on above: Result Comment: YULIA MIN D STATUS 25(OH)VITAMIN D RANGE (ng/mL) Deficient <20 Insufficient 20 to <30 Sufficient 30 to 100 Reference: Sari Taylor, Mayito SNYDER, et al. Evaluation,treatment, and prevention of vitamin D deficiency; an Endocrine Society clinical practice guideline. JCEM. 2010; 96(7):1911-30. PERFORMED BY: [place] [address] PATHOLOGIST BLACK TOP MACHINE OPERATOR MARQUITA BOLAÑOS M.D. Performed By: #### U RDS #### [facility] [address] [place], [place] [id number] [facility] Vitamin D+Metabolites [Mass/ volume] in Serum or PlasmaOrdered By: Dane Erwin on 10-18-2024 Vitamin D+Metabolites [Mass/Vol] Vitamin D+Metabolites [Mass/volume] in Serum or Plasma Low 30-100 [facility] Comment on above: VITAMIN D STATUS 25( [place])VITAMIN D RANGE (ng/mL) Deficient <20 Insufficient 20 to <30Sufficient 30 to 100Reference: Sari Taylor, Mayito SNYDER, et al. Evaluation,treatment, and prevention of vitamin D deficiency; an Endocrine Society clinical practice guideline. JCEM. 2010; 96(7):1911-30. LIZBETH Antinuclear Antibodieson 10-17-2024 Antinuclear Abs, IFA Positive Critically abnormal . [facility] Comment on above: Result Comment: Nega tive <1:80 Borderline 1:80 Positive >1:80 Performed By: #### U RDS #### [address] Note 1 Comment Normal . [facility] Comment on above: Result Comment: Mojgan morgan Potential Disease Association Homogeneous Systemic Lupus Erythematosus, Drug Induced Systemic Lupus Erythematosus, Chronic Autoimmune hepatitis, Juvenile Idiopathic Arthritis Speckled Sjogren Syndrome, Systemic Lupus Erythematosus, Subacute Cutaneous Lupus, Lupus, Congenital Heart Block, Mixed Connective Tissue Disease, Scleroderma-diffuse, Scleroderma-Autoimmune Myositis Overlap Syndrome, Systemic Lupus Sqakvktankyfx-Abiuvvhgpag-Vvpllnxlur Myositis Overlap Syndrome, Systemic Autoimmune Rheumatic Disease, Undifferentiated Connective Tissue Disease Nucleolar Systemic Sclerosis, Scleroderma-Autoimmune Myositis Overlap Syndrome, Sjogren Syndrome, Raynaud phenomenon, Pulmonary Arterial Hypertension, Systemic Autoimmune Rheumatic Disease, Cancer Centromere Scleroderma-CREST, Limited Cutaneous SSc, Raynaud's Phenomenon, Primary Biliary Cholangitis Nuclear Dot Primary Biliary Cholangitis Nuclear Primary Biliary Cholangitis, Autoimmune Membrane Hepatitis/Liver disease, Systemic Autoimmune Rheumatic Disease, Autoimmune Cytopenias, Linear Scleroderma, Antiphospholipid Syndrome Performed at: [facility] [id number] Soft Iron Inspector: Justice Flor PhD, Phone: [phone] PERFORMED BY: [place] [address] PATHOLOGIST BLACK TOP MACHINE OPERATOR MARQUITA BOLAÑOS M.D. Performed By: #### U RDS #### [address] Speckled Pattern 1 High . [facility] Comment on above: Result Comment: Dens e Fine Speckled pattern is noted. This pattern suggests the presence of DFS70 antibody which has a low prevalence in systemic autoimmune rheumatic diseases. ICAP nomenclature: AC-2,4,5,29 Performed By: #### U RDS #### [address] Alanine aminotransferase [En zymatic activity/volume] in Serum or PlasmaOrdered By: Leola Smith on 10-17-2024 ALT [Catalytic activity/Vol] Alanine aminotransferase [Enzymatic activity/volume] in Serum or Plasma High 7-52 [facility] Albumin [Mass/volume] in Ser um or Plasma by Bromocresol green (BCG) dye binding methoOrdered By: Leola Smith on 10-17-2024 Albumin BCG dye [Mass/Vol] Albumin [Mass/volume] in Serum or Plasma by Bromocresol green (BCG) dye binding metho Low 3.5-5.7 [facility] [facility] Alkaline phosphatase [Enzyma tic activity/volume] in Serum or PlasmaOrdered By: Leola Smith on 10-17-2024 ALP [Catalytic activity/Vol] Alkaline phosphatase [Enzymatic activity/volume] in Serum or Plasma High 34-104 [facility] Aspartate aminotransferase [ Enzymatic activity/volume] in Serum or PlasmaOrdered By: Leola Smith on 10-17-2024 AST [Catalytic activity/Vol] Aspartate aminotransferase [Enzymatic activity/volume] in Serum or Plasma 13-39 [facility] Basophils Auto (Bld) [#/Vol] Ordered By: Leola Smith on 10-17-2024 Basophils (Bld) [#/Vol] Automated basophil count 0.0-0.2 [facility] Basophils/100 WBC Auto (Bld) Ordered By: Leola Smith on 10-17-2024 Basophils/100 WBC (Bld) Automated basophil % . [facility] Bilirubin.total [Mass/volume ] in Serum or PlasmaOrdered By: Leola Smith on 10-17-2024 Bilirubin [Mass/Vol] Bilirubin.total [Mass/volume] in Serum or Plasma 0.3-1.0 [facility] Calcium [Mass/volume] in Ser um or PlasmaOrdered By: Leola Smith on 10-17-2024 Calcium [Mass/Vol] Calcium [Mass/volume ] in Serum or Plasma Low 8.6-10.3 [facility] Carbon dioxide, total [Moles /volume] in Serum or PlasmaOrdered By: Leola Smith on 10-17-2024 CO2 [Moles/Vol] Carbon dioxide, tota l [Moles/volume] in Serum or Plasma 21.0-31.0 [facility] Chloride [Moles/volume] in S lizette or PlasmaOrdered By: Leola Smith on 10-17-2024 Chloride [Moles/Vol] Chloride [Moles/vol ume] in Serum or Plasma High 98-107 [facility] Complete Blood Count Auto Di ffon 10-17-2024 Basophils (Bld) [#/Vol] 0.0 10*3/uL Normal 0.0-0.2 [facility] Comment on above: Result Comment: PERF ORMED BY: [place] [address] PATHOLOGIST BLACK TOP MACHINE OPERATOR MARQUITA BOLAÑOS M.D. Performed By: #### C MP, CBC #### [address] Basophils/100 WBC (Bld) 0.5 % Normal . [facility] Comment on above: Performed By: #### C MP, CBC #### [address] Eosinophils (Bld) [#/Vol] 0.1 10*3/uL Normal 0.0-0.45 [facility] Comment on above: Performed By: #### C MP, CBC #### [address] Eosinophils/100 WBC (Bld) 1.2 % Normal . [facility] Comment on above: Performed By: #### C MP, CBC #### [address] Erythrocyte distribution width (RBC) [Ratio] 17.3 % High 11.9-15.3 [facility] Comment on above: Performed By: #### C MP, CBC #### [address] Hematocrit (Bld) [Volume fraction] 31.1 % Low 34.0-46.4 [facility] Comment on above: Performed By: #### C MP, CBC #### [address] Hemoglobin (Bld) [Mass/Vol] 10.4 g/dL Low 11.8-15.4 [facility] Comment on above: Performed By: #### C MP, CBC #### [place] [address] Lymphocytes (Bld) [#/Vol] 2.1 10*3/uL Normal 1.00-4.8 [facility] Comment on above: Performed By: #### C MP, CBC #### [address] Lymphocytes/100 WBC (Bld) 49.2 % Normal . [facility] Comment on above: Performed By: #### C MP, CBC #### [address] MCH (RBC)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 low 3.4-5.0 [facility] Comment on above: Performed By: #### C MP #### [facility] [place] [facility] [address] [place] [address] Dr. Hemanth Kerr Albumin/Globulin [Mass ratio] 1.3 {ratio} Normal [facility] Comment on above: Performed By: #### C MP #### [facility] [place] [facility] [address] [place] [address] Dr. Hemanth Kerr ALP [Catalytic activity/Vol] 56 U/L Normal 46-116 [facility] Comment on above: Performed By: #### C MP #### [facility] [place] [facility] [address] [place] [address] Dr. Hemanth Kerr ALT [Catalytic activity/Vol] 34 U/L Normal 14-59 [facility] Comment on above: Performed By: #### C MP #### [facility] [place] [facility] [address] [place] [address] Dr. Hemanth Kerr Anion gap [Moles/Vol] 7.0 mmol/L Normal [facility] Comment on above: Performed By: #### C MP #### [facility] [place] [facility] [address] [place] [address] Dr. Hemanth Kerr AST [Catalytic activity/Vol] 29 U/L Normal 15-37 [facility] Comment on above: Performed By: #### C MP #### [facility] [place] [facility] [address] [address] [address] Hemanth Kerr Bilirubin [Mass/Vol] 0.4 mg/dL Normal 0.2-1.0 [facility] Comment on above: Performed By: #### C MP #### [facility] [place] [facility] [address] [address] [address] Hemanth Kerr Calcium [Mass/Vol] 8.3 mg/dL Critically low 8.5-10.1 [facility] Comment on above: Performed By: #### C MP #### [facility] [place] [facility] [address] [address] [address] Hemanth Kerr Chloride [Moles/Vol] 110 mmol/L Critically high 98-107 [facility] Comment on above: Performed By: #### C MP #### [facility] [place] [facility] [address] [place] [address] Dr. Hemanth Kerr CO2 [Moles/Vol] 27.6 mmol/L Normal 21.0-32.0 [facility] Comment on above: Performed By: #### C MP #### [facility] [place] [facility] [address] [place] [address] Dr. Hemanth Kerr Creatinine [Mass/Vol] 0.61 mg/dL Normal 0.55-1.02 [facility] Comment on above: Performed By: #### C MP #### [facility] [place] [facility] [address] [place] [address] Dr. Hemanth Kerr EGFR-AF MARSHALLESE >60 Normal >=60 [facility] [place] Comment on above: Performed By: #### C MP #### [facility] [place] [facility] [address] [place] [address] Dr. Hemanth Kerr EGFR-NON AF MARSHALLESE >60 Normal >=60 [facility] Comment on above: Performed By: #### C MP #### [facility] [place] [facility] [address] [place] [address] Dr. Hemanth Kerr Globulin (S) [Mass/Vol] 2.4 g/dL Normal [facility] Comment on above: Performed By: #### C MP #### [facility] [place] [facility] [address] [place] [address] Dr. Hemanth Kerr Glucose [Mass/Vol] 110 mg/dL Critically high 74-106 [facility] Comment on above: Performed By: #### C MP #### [facility] [place] [facility] [address] [address] [address] Hemanth Kerr Potassium [Moles/Vol] 2.6 mmol/L Critically low 3.5-5.1 [facility] Comment on above: Performed By: #### C MP #### [facility] [place] [facility] [address] [address] [address] Hemanth Kerr Protein [Mass/Vol] 5.5 g/dL Critically low 6.4-8.2 Th [facility] Comment on above: Performed By: #### C MP #### [facility] [place] [facility] [address] [address] [address] Hemanth Kerr Sodium [Moles/Vol] 142 mmol/L Normal 136-145 [facility] Comment on above: Performed By: #### C MP #### [facility] [place] [facility] [address] [address] [address] Hemanth Kerr Urea nitrogen [Mass/Vol] 12.0 mg/dL Normal 7.0-18.0 [facility] Comment on above: Performed By: #### C MP #### [facility] [place] [facility] [address] [address] [address] Hemanth Kerr Urea nitrogen/Creatinine [Mass ratio] 19.7 mg/mg Normal [facility] Comment on above: Performed By: #### C MP #### [facility] [place] [facility] [address] [address] [address] Hemanth Kerr XR HIP LT 2 [...] by: ALIX GRANADOS Date: 2022-11-28 22:13 Normal [facility] ACETAMINOPHENon 11-28-2022 Acetaminophen [Mass/Vol] ug/mL Critically low 10.0-30.0 [facility] Comment on above: Performed By: #### C MP #### [facility] [place] [facility] [address] [place] [address] Dr. Hemanth Kerr ACETONE SERUMon 11-28-2022 ACETONE Negative Normal NEGATIVE [facility] Comment on above: Performed By: #### P REG #### [facility] [place] [facility] [address] [place] [address] Dr. Hemanth Kerr AMMONIAon 11-28-2022 Ammonia (P) [Moles/Vol] 24 umol/L Normal 11-32 [facility] [place] Comment on above: Performed By: #### L ACT #### [facility] [place] [facility] [address] [place] [address] Dr. Hemanth Kerr CBC AUTO DIFFon 11-28-2022 BASO # 0.0 103/ul Normal 0.0-0.1 [facility] Comment on above: Performed By: #### L ACT #### [facility] [place] [facility] [address] [place] [address] Dr. Hemanth Kerr Basophils/100 WBC (Bld) 0.4 % Normal 0.2-2.0 [facility] Comment on above: Performed By: #### L ACT #### [facility] [place] [facility] [address] [place] [address] Dr. Hemanth Kerr EO # 0.3 103/ul Normal 0.0-0.7 [facility] Comment on above: Performed By: #### L ACT #### [facility] [place] [facility] [address] [place] [address] Dr. Hemanth Kerr Eosinophils/100 WBC (Bld) 3.1 % Normal 0.9-7.0 [facility] Comment on above: Performed By: #### L ACT #### [facility] [place] [facility] [address] [place] [address] Dr. Hemanth Kerr Erythrocyte distribution width (RBC) [Ratio] 14.3 % Normal 11.0-15.0 [facility] Comment on above: Performed By: #### L ACT #### [facility] [place] [facility] [address] [place] [address] Dr. Hemanth Kerr Hematocrit (Bld) [Volume fraction] 41.3 % Normal 36.0-48.0 [facility] Comment on above: Performed By: #### L ACT #### [facility] [place] [facility] [address] [place] [address] Dr. Hemanth Kerr Hemoglobin (Bld) [Mass/Vol] 13.3 g/dL Normal 12.0-16.0 [facility] Comment on above: Performed By: #### L ACT #### [facility] [place] [facility] [address] [place] [address] Dr. Hemanth Kerr IG # 0.02 10e3/ul Normal 0.00-0.03 [facility] Comment on above: Performed By: #### L ACT #### [facility] [place] [facility] [address] [place] [address] Dr. Hemanth Kerr IG % 0.2 % Normal 0.0-0.5 [facility] Comment on above: Performed By: #### L ACT #### [facility] [place] [facility] [address] [place] [address] Dr. Hemanth Kerr LYMPH # 2.4 103/ul Normal 1.2-3.8 [facility] Comment on above: Performed By: #### L ACT #### [facility] [place] [facility] [address] [place] [address] Dr. Hemanth Kerr Lymphocytes/100 WBC (Bld) 26.3 % Normal 20.5-60.0 [facility] Comment on above: Performed By: #### L ACT #### [facility] [place] [facility] [address] [place] [address] Dr. Hemanth Kerr MANUAL DIFF REQ NO Normal [facility] Comment on above: Performed By: #### L ACT #### [facility] [place] [facility] [address] [place] [address] Dr. Hemanth Kerr MCH (RBC) [Entitic mass] 27.4 pg Normal 26.7-34.0 [facility] Comment on above: Performed By: #### L ACT #### [facility] [place] [facility] [address] [place] [address] Dr. Hemanth Kerr MCHC (RBC) [Mass/Vol] 32.2 g/dL Normal 29.9-35.2 [facility] Comment on above: Performed By: #### L ACT #### [facility] [place] [facility] [address] [address] [address] Heamnth Kerr MCV (RBC) [Entitic vol] 85.0 fL Normal 81.0-99.0 [facility] Comment on above: Performed By: #### L ACT #### [facility] [place] [facility] [address] [address] [address] Hemanth Kerr MONO # 0.7 103/ul Normal 0.3-0.8 [facility] Comment on above: Performed By: #### L ACT #### [facility] [place] [facility] [address] [place] [address] Dr. Hemanth Kerr Monocytes/100 WBC (Bld) 7.3 % Normal 1.7-12.0 [facility] Comment on above: Performed By: #### L ACT #### [facility] [place] [facility] [address] [place] [address] Dr. Hemanth Kerr NEUT # 5.7 103/ul Normal 1.4-6.5 [facility] Comment on above: Performed By: #### L ACT #### [facility] [place] [facility] [address] [place] [address] Dr. Hemanth Kerr Neutrophils/100 WBC (Bld) 62.7 % Normal 43.0-75.0 [facility] Comment on above: Performed By: #### L ACT #### [facility] [place] [facility] [address] [place] [address] Dr. Hemanth Kerr Platelet mean volume (Bld) [Entitic vol] 10.6 fL Normal 9.5-13.5 [facility] Comment on above: Performed By: #### L ACT #### [facility] [place] [facility] [address] [place] [address] Dr. Hemanth Kerr PLT 347 103/ul Normal 150-450 [facility] [place] Comment on above: Performed By: #### L ACT #### [facility] [place] [facility] [address] [place] [address] Dr. Hemanth Kerr RBC 4.86 106/ul Normal 4.20-5.40 [facility] Comment on above: Performed By: #### L ACT #### [facility] [place] [facility] [address] [place], [place] [address] Dr. Hemanth Kerr WBC 9.1 103/ul Normal 4.0-11.0 [facility] Comment on above: Performed By: #### L ACT #### [facility] [place] [facility] [address] [place], [place] [address] CSPINE WO CONon CT CSPINE WO CON EXAMINATION: CT CSPI NE WO CON HISTORY: DISORIENTATION, UNSPECIFIED COMPARISON: None. [...] KAMILLA MILLS Date: 2022-11-28 17:54 Normal [facility] [place] CT HEAD WO CONon 11-28-2022 CT HEAD [...] KAMILLA MILLS Date: 2022-11-28 18:40 Normal The [facility] [place] CULTURE BLOODon 11-28-2022 Microscopic examination of blood, culture Culture Observations: NO GROWTH AT 5 DAYS. Normal [facility] [place] Comment on above: Performed By: #### C BC #### [facility] [place] [facility] [address] [place], [place] [address] Dr. Hemanth Kerr Microscopic examination of blood, culture Culture Observations: NO GROWTH AT 5 DAYS. Normal [facility] [place] Comment on above: Performed By: #### B [id number] #### [facility] [place] [facility] [address] [place], [place] [address] Dr. Hemanth Kerr Covid-19 PCR ([facility])on 11-15 SARS-CoV-2 (COVID-19) RNA ELMO+probe Ql (Unsp spec) Not detected Normal NOT DETECTED [facility] [place] Comment on above: Result Comment: When diagnostic [...] for this test is supported by the [place] [employer] and [employer] Service's declaration that [...] used). Performed By: #### L ACT #### [facility] [place] [facility] [address] [place], [place] [address] Dr. Hemanth Kerr DRUG SCREEN RAPID (URINE)on 11-28-2022 AMP Positive Abnormal NEGATIVE [facility] Comment on above: Performed By: #### P REG #### [facility] [place] [facility] [address] [place] [address] Dr. Hemanth Kerr BAR Negative Normal NEGATIVE [facility] [place] Comment on above: Performed By: #### P REG #### [facility] [place] [facility] [address] [place] [address] Dr. Hemanth Kerr BUP Negative Normal NEGATIVE [facility] Comment on above: Performed By: #### P REG #### [facility] [place] [facility] [address] [place] [address] Dr. Hemanth Kerr BZO Negative Normal NEGATIVE [facility] Comment on above: Performed By: #### P REG #### [facility] [place] [facility] [address] [place] [address] Dr. Hemanth Kerr YOLANDA Negative Normal NEGATIVE [facility] Comment on above: Performed By: #### P REG #### [facility] [place] [facility] [address] [place] [address] Dr. Hemanth Kerr CUT-OFFS SEE BELOW Normal [facility] [place] Comment on above: Result Comment: AMP (Amphetamine): 500ng/mL, BAR (Barbituates): 200 ng/mL, BZO (Benzodiazepines): 150 ng/mL, BUP (Buprenorphine): 10 ng/mL, YOLANDA (Cocaine): 150 ng/mL, mAMP (Methamphetamine): 500 ng/mL, MTD (Methadone): 200 ng/mL, OPI (Opiates): 100 ng/mL, OXY (Oxycodone): 100 ng/mL, PCP (Phencyclidine): 25 ng/mL, PPX (Propoxyphene): 300 ng/mL, THC (Cannabinoids): 50 ng/mL, TCA (Trycyclic Antidepressants): 300 ng/mL Performed By: #### P REG #### [facility] [place] [facility] [address] [place] [address] Dr. Hemanth Kerr DRUG CUT HEADER DRUG CLASS TEST SYST EM CUT-OFF CONCENTRATIONS ARE FOLLOWS: Normal [facility] Comment on above: Performed By: #### P REG #### [facility] [place] [facility] [address] [place] [address] Dr. Hemanth Kerr mAMP Positive Abnormal NEGATIVE [facility] Comment on above: Performed By: #### P REG #### [facility] [place] [facility] [address] [address] [address] Hemanth Kerr MTD Negative Normal NEGATIVE [facility] Comment on above: Performed By: #### P REG #### [facility] [place] [facility] [address] [place] [address] Dr. Hemanth Kerr OPI Negative Normal NEGATIVE [facility] Comment on above: Performed By: #### P REG #### [facility] [place] [facility] [address] [place] [address] Dr. Hemanth Kerr OXY Negative Normal NEGATIVE [facility] Comment on above: Performed By: #### P REG #### [facility] [place] [facility] [address] [place] [address] Dr. Hemanth Kerr PCP Negative Normal NEGATIVE [facility] Comment on above: Performed By: #### P REG #### [facility] [place] [facility] [address] [place] [address] Dr. Hemanth Kerr PPX Negative Normal NEGATIVE [facility] Comment on above: Performed By: #### P REG #### [facility] [place] [facility] [address] [place] [address] Dr. Hemanth Kerr TCA Negative Normal NEGATIVE [facility] Comment on above: Performed By: #### P REG #### [facility] [place] [facility] [address] [place] [address] Dr. Hemanth Kerr THC Negative Normal NEGATIVE [facility] Comment on above: Performed By: #### P REG #### [facility] [place] [facility] [address] [place] [address] Dr. Hemanth Kerr ER URINE PROFILEon 3 Bilirubin Ql (U) Negative Normal NEGATIVE [facility] Comment on above: Performed By: #### P REG #### [facility] [place] [facility] [address] [place] [address] Dr. Hemanth Kerr Clarity (U) CLEAR Normal CLEAR [facility] Comment on above: Performed By: #### P REG #### [facility] [place] [facility] [address] [place] [address] Dr. Hemanth Kerr Color (U) LT. YELLOW Normal YELLOW [facility] Comment on above: Performed By: #### P REG #### [facility] [place] [facility] [address] [address] [address] Hemanth HOLMAN A micrscopic examina tion will be performed if indicated. Normal [facility] [place] Comment on above: Performed By: #### P REG #### [facility] [place] [facility] [address] [place] [address] Dr. Hemanth Kerr Glucose Ql (U) Negative Normal NEGATIVE [facility] [place] Comment on above: Performed By: #### P REG #### [facility] [place] [facility] [address] [address] [address] Hemanth Kerr Hemoglobin Ql (U) Negative Normal NEGATIVE [facility] [place] Comment on above: Performed By: #### P REG #### [facility] [place] [facility] [address] [place] [address] Dr. Hemanth Kerr Ketones Ql (U) Negative Normal NEGATIVE [facility] Comment on above: Performed By: #### P REG #### [facility] [place] [facility] [address] [address] [address] Hemanth Kerr LEUKOCYTES Negative Normal NEGATIVE [facility] Comment on above: Performed By: #### P REG #### [facility] [place] [facility] [address] [place] [address] Dr. Hemanth Kerr Nitrite Ql (U) Positive Abnormal NEGATIVE [facility] Comment on above: Performed By: #### P REG #### [facility] [place] [facility] [address] [place] [address] Dr. Hemanth Kerr pH (U) 7.5 [pH] Normal 5-9 [facility] Comment on above: Performed By: #### P REG #### [facility] [place] [facility] [address] [place] [address] Dr. Hemanth Kerr SPEC GRAVITY 1.020 Normal 1.005-<=1.02 5 [facility] [place] Comment on above: Performed By: #### P REG #### [facility] [place] [facility] [address] [place] [address] Dr. Hemanth Kerr UA PROTEIN TRACE Normal NEGATIVE/ TRACE [facility] [place] Comment on above: Performed By: #### P REG #### [facility] [place] [facility] [address] [place] [address] Dr. Hemanth Kerr UR MICRO IND INDICATED Normal [facility] Comment on above: Performed By: #### P REG #### [facility] [place] [facility] [address] [place] [address] Dr. Hemanth Kerr Urobilinogen Qn (U) 1.0 {Jose'U}/dL Normal 0.2 - 1. 0 [facility] [place] Comment on above: Performed By: #### P REG #### [facility] [place] [facility] [address] [place] [address] Dr. Hemanth Kerr ETHANOL (BLD ALC)on 11-29-19 23 ALC NOTE NOTE: 80 mg/dl is th e legal limit for a blood alcohol level Normal [facility] Comment on above: Performed By: #### C MP #### [facility] [place] [facility] [address] [place] [address] Dr. Hemanth Kerr Ethanol [Mass/Vol] mg/dL Normal [facility] [place] Comment on above: Performed By: #### C MP #### [facility] [place] [facility] [address] [place] [address] Dr. Hemanth Kerr LACTATE/LACTIC ACIDon 2022 Lactate [Moles/Vol] 0.7 mmol/L Normal 0.4-2.0 [facility] Comment on above: Performed By: #### L ACT #### [facility] [place] [facility] [address] [place] [address] Dr. Hemanth Kerr Lactate [Moles/Vol] 9.0 mmol/L Critically high 0.4-2.0 [facility] [place] Comment on above: Performed By: #### L ACT #### [facility] [place] [facility] [address] [place] [address] Dr. Hemanth Kerr PH VENOUS BLOODon 11-28-2022 PCO2 VENOUS 36.6 mmHg Critically low 40.0-52.0 [facility] Comment on above: Performed By: #### P HVEN #### [facility] [place] [facility] [address] [place] [address] Dr. Hemanth Kerr pH VENOUS 7.354 Normal 7.330-7.430 [facility] [place] Comment on above: Performed By: #### P HVEN #### [facility] [place] [facility] [address] [place] [address] Dr. Hemanth Kerr POINT OF CARE GLUCOSEon 11-15 Glucose [Mass/Vol] 127 mg/dL Critically high 74-106 [facility] Comment on above: Performed By: #### C BC #### [facility] [place] [facility] [address] [place] [address] Dr. Hemanth Kerr PREG HCG QUALon 11-28-2022 , QUAL Negative Normal NEGATIVE [facility] Comment on above: Performed By: #### P REG #### [facility] [place] [facility] [address] [place] [address] Dr. Hemanth Kerr PROF 14(COMP METB)on 023 Albumin [Mass/Vol] 3.7 g/dL Normal 3.4-5.0 [facility] Comment on above: Performed By: #### L ACT #### [facility] [place] [facility] [address] [place] [address] Dr. Hemanth Kerr Albumin/Globulin [Mass ratio] 1.3 {ratio} Normal [facility] Comment on above: Performed By: #### L ACT #### [facility] [place] [facility] [address] [place] [address] Dr. Hemanth Kerr ALP [Catalytic activity/Vol] 72 U/L Normal 46-116 [facility] Comment on above: Performed By: #### L ACT #### [facility] [place] [facility] [address] [place] [address] Dr. Hemanth Kerr ALT [Catalytic activity/Vol] 42 U/L Normal 14-59 [facility] Comment on above: Performed By: #### L ACT #### [facility] [place] [facility] [address] [place] [address] Dr. Hemanth Kerr Anion gap [Moles/Vol] 16.3 mmol/L Normal [facility] Comment on above: Performed By: #### L ACT #### [facility] [place] [facility] [address] [place] [address] Dr. Hemanth Kerr AST [Catalytic activity/Vol] 45 U/L Critically high 15-37 [facility] Comment on above: Performed By: #### L ACT #### [facility] [place] [facility] [address] [address] [address] Hemanth Kerr Bilirubin [Mass/Vol] 0.4 mg/dL Normal 0.2-1.0 [facility] Comment on above: Performed By: #### L ACT #### [facility] [place] [facility] [address] [address] [address] Hemanth Kerr Calcium [Mass/Vol] 8.8 mg/dL Normal 8.5-10.1 [facility] [place] Comment on above: Performed By: #### L ACT #### [facility] [place] [facility] [address] [address] [address] Hemanth Kerr Chloride [Moles/Vol] 107 mmol/L Normal 98-107 [facility] [place] Comment on above: Performed By: #### L ACT #### [facility] [place] [facility] [address] [address] [address] Hemanth Kerr CO2 [Moles/Vol] 21.8 mmol/L Normal 21.0-32.0 [facility] Comment on above: Performed By: #### L ACT #### [facility] [place] [facility] [address] [address] [address] Hemanth Kerr Creatinine [Mass/Vol] 1.32 mg/dL Critically high 0.55-1.02 [facility] Comment on above: Performed By: #### L ACT #### [facility] [place] [facility] [address] [address] [address] Hemanth Kerr EGFR-AF MARSHALLESE 58 mL/min/1.73m2 Critically low >=60 [facility] [place] Comment on above: Performed By: #### L ACT #### [facility] [place] [facility] [address] [address] [address] Hemanth Kerr EGFR-NON AF MARSHALLESE 48 mL/min/1.73m2 Critically low >=60 [facility] [place] Comment on above: Performed By: #### L ACT #### [facility] [place] [facility] [address] [address] [address] Hemanth Kerr Globulin (S) [Mass/Vol] 2.9 g/dL Normal [facility] Comment on above: Performed By: #### L ACT #### [facility] [place] [facility] [address] [address] [address] Hemanth Kerr Glucose [Mass/Vol] 143 mg/dL Critically high 74-106 [facility] Comment on above: Performed By: #### L ACT #### [facility] [place] [facility] [address] [address] [address] Hemanth Kerr Potassium [Moles/Vol] 3.1 mmol/L Critically low 3.5-5.1 [facility] Comment on above: Performed By: #### L ACT #### [facility] [place] [facility] [address] [address] [address] Hemanth Kerr Protein [Mass/Vol] 6.6 g/dL Normal 6.4-8.2 [facility] Comment on above: Performed By: #### L ACT #### [facility] [place] [facility] [address] [address] [address] Hemanth Kerr Sodium [Moles/Vol] 142 mmol/L Normal 136-145 [facility] Comment on above: Performed By: #### L ACT #### [facility] [place] [facility] [address] [address] [address] Hemanth Kerr Urea nitrogen [Mass/Vol] 17.0 mg/dL Normal 7.0-18.0 [facility] Comment on above: Performed By: #### L ACT #### [facility] [place] [facility] [address] [address] [address] Hemanth Kerr Urea nitrogen/Creatinine [Mass ratio] 12.9 mg/mg Normal [facility] Comment on above: Performed By: #### L ACT #### [facility] [place] [facility] [address] [address] [address] Hemanth Kerr PROTIMEon 11-28-2022 INR Coag (PPP) [Relative time] 0.97 {INR} Normal [facility] Comment on above: Performed By: #### P T, PTT #### [facility] [place] [facility] [address] [address] [address] Hemanth Kerr INR GUIDELINES SEE BELOW Normal [facility] Comment on above: Result Comment: CHAN RED INR: 2.0 - 3.0 CONDITIONS NOT LISTED BELOW 2.5 - 3.5 FOR PROSTHETIC HEART VALVE REPLACEMENT 2.5 - 3.5 RECURRENT THROMBOSIS Performed By: #### P T, PTT #### [facility] [place] [facility] [address] [place] [address] Dr. Hemanth Kerr PT Coag (PPP) [Time] 10.3 s Normal 9.0-11.6 [facility] Comment on above: Performed By: #### P T, PTT #### [facility] [place] [facility] [address] [place] [address] Dr. Hemanth Kerr PTTon 11-28-2022 aPTT Coag (Bld) [Time] 25.4 s Normal 22.3-36.2 Th e [facility] [place] Comment on above: Performed By: #### P T, PTT #### [facility] [place] [facility] [address] [place] [address] Dr. Hemanth Kerr SALICYLATEon 11-28-2022 SALICYLATE <2.8 Normal <=19.9 [facility] Comment on above: Performed By: #### C MP #### [facility] [place] [facility] [address] [place] [address] Dr. Hemanth Kerr TROPONIN, HIGH SENSITIVITYon 11-28-2022 HSTROP 4.2 pg/mL Normal 4.0-51.3 [facility] [place] Comment on above: Result Comment: CUT- OFF POINTS HAVE BEEN ESTABLISHED BASED ON THE FOURTH UNIVERSAL DEFINITIONS OF MYOCARDIAL INFARCTION. THE UPPER REFERENCE LIMIT (URL) OF TROPONIN, DEFINED THE 99TH PERCENTILE OF cTnI DISTRIBUTION IN A REFERENCE POPULATION, HAS BEEN CONFIRMED THE DECISION THRESHOLD FOR MA DIAGNOSIS. Performed By: #### C MP #### [facility] [place] [facility] [address] [place] [address] Dr. Hemanth Kerr TSHon 11-28-2022 TSH 3.476 uIU/mL Normal 0.358-3.740 [facility] [place] Comment on above: Performed By: #### L ACT #### [facility] [place] [facility] [address] [place] [address] Dr. Hemanth Kerr URINE MICROSCOPIC ONLYon BACTERIA LARGE Abnormal NONE SEEN [facility] [place] Comment on above: Performed By: #### P REG #### [facility] [place] [facility] [address] [place], [place] [id number] Dr. Hemanth Kerr Bacteria identified Cx Nom (U) INDICATED Normal [facility] [place] Comment on above: Performed By: #### P REG #### [facility] [place] [facility] [address] [place] [address] Dr. Hemanth Kerr CAST SEEN Abnormal NONE SEEN [facility] [place] Comment on above: Performed By: #### P REG #### [facility] [place] [facility] [address] [place] [address] Dr. Hemanth Kerr COARSE GRANULAR CAST RARE Normal [facility] [place] Comment on above: Performed By: #### P REG #### [facility] [place] [facility] [address] [place] [address] Dr. Hemanth Kerr Crystals LM Nom (Urine sed) NONE SEEN Normal NONE SEEN [facility] [place] Comment on above: Performed By: #### P REG #### [facility] [place] [facility] [address] [place] [address] Dr. Hemanth Kerr Epithelial cells LM Ql (Urine sed) RARE Normal NONE SEEN /RARE [facility] [place] Comment on above: Performed By: #### P REG #### [facility] [place] [facility] [address] [place] [address] Dr. Hemanth Kerr MUCOUS NONE SEEN Normal NONE SEEN [facility] [place] Comment on above: Performed By: #### P REG #### [facility] [place] [facility] [address] [place] [address] Dr. Hemanth Kerr RBC 0-2 Normal 0-2 [facility] [place] Comment on above: Performed By: #### P REG #### [facility] [place] [facility] [address] [place] [address] Dr. Hemanth Kerr WBC 2-5 Abnormal NONE SEEN [facility] [place] Comment on above: Performed By: #### P REG #### [facility] [place] [facility] [address] [place] [address] Dr. Hemanth Kerr XR CHEST 1 Von [...] KAMILLA MILLS Date: 2022-11-28 17:39 Normal [facility] [place] CULTURE URINEon 10-13-2022 CULTURE URINE Isolate 1 Escherichia coli >100,000 cfu/mL of ORGANISM 1 Escherichia coli ANTIBIOTIC M.I.C RX STATUS Ampicillin >=32 R F Ampicillin/Sulbactam 16 I F Piperacillin/Tazobactam <=4 S F Cefazolin <=4 S F Ceftazidime <=1 S F Ceftriaxone <=1 S F Ertapenem <=0.5 S F Imipenem <=0.25 S F Amikacin <=2 S F Gentamicin <=1 S F Tobramycin <=1 S F Ciprofloxacin <=0.25 S F Levofloxacin <=0.12 S F Nitrofurantoin <=16 S F Trimethoprim/Sulfamethoxa zole >=320 R F Normal [facility] [place] Comment on above: Performed By: #### U RCX #### [facility] [place] [facility] [address] [place] [address] Dr. Hemanth Kerr CBC AUTO DIFFon 10-11-2022 BASO # 0.0 103/ul Normal 0.0-0.1 [facility] [place] Comment on above: Performed By: #### C BC #### [facility] [place] [facility] [address] [place] [address] Dr. Hemanth Kerr Basophils/100 WBC (Bld) 0.3 % Normal 0.2-2.0 [facility] [place] Comment on above: Performed By: #### C BC #### [facility] [place] [facility] [address] [place] [address] Dr. Hemanth Kerr EO # 0.0 103/ul Normal 0.0-0.7 [facility] [place] Comment on above: Performed By: #### C BC #### [facility] [place] [facility] [address] [place] [address] Dr. Hemanth Kerr Eosinophils/100 WBC (Bld) 0.4 % Critically low 0.9-7.0 [facility] Comment on above: Performed By: #### C BC #### [facility] [place] [facility] [address] [place] [address] Dr. Hemanth Kerr Erythrocyte distribution width (RBC) [Ratio] 12.2 % Normal 11.0-15.0 [facility] Comment on above: Performed By: #### C BC #### [facility] [place] [facility] [address] [place] [address] Dr. Hemanth Kerr Hematocrit (Bld) [Volume fraction] 38.6 % Normal 36.0-48.0 [facility] Comment on above: Performed By: #### C BC #### [facility] [place] [facility] [address] [place] [address] Dr. Hemanth Kerr Hemoglobin (Bld) [Mass/Vol] 12.0 g/dL Normal 12.0-16.0 [facility] Comment on above: Performed By: #### C BC #### [facility] [place] [facility] [address] [place] [address] Dr. Hemanth Kerr IG # 0.07 10e3/ul Critically high 0.00-0.03 [facility] Comment on above: Performed By: #### C BC #### [facility] [place] [facility] [address] [place] [address] Dr. Hemanth Kerr IG % 0.7 % Critically high 0.0-0.5 [facility] Comment on above: Performed By: #### C BC #### [facility] [place] [facility] [address] [place] [address] Dr. Hemanth Kerr LYMPH # 1.2 103/ul Normal 1.2-3.8 [facility] Comment on above: Performed By: #### C BC #### [facility] [place] [facility] [address] [place] [address] Dr. Hemanth Kerr Lymphocytes/100 WBC (Bld) 12.1 % Critically low 20.5-60.0 [facility] Comment on above: Performed By: #### C BC #### [facility] [place] [facility] [address] [place] [address] Dr. Hemanth Kerr MANUAL DIFF REQ NO Normal [facility] Comment on above: Performed By: #### C BC #### [facility] [place] [facility] [address] [address] [address] Hemanth Kerr MCH (RBC) [Entitic mass] 28.0 pg Normal 26.7-34.0 [facility] Comment on above: Performed By: #### C BC #### [facility] [place] [facility] [address] [place] [address] Dr. Hemanth Kerr MCHC (RBC) [Mass/Vol] 31.1 g/dL Normal 29.9-35.2 [facility] Comment on above: Performed By: #### C BC #### [facility] [place] [facility] [address] [place] [address] Dr. Hemanth Kerr MCV (RBC) [Entitic vol] 90.2 fL Normal 81.0-99.0 [facility] Comment on above: Performed By: #### C BC #### [facility] [place] [facility] [address] [place] [address] Dr. Hemanth Kerr MONO # 0.7 103/ul Normal 0.3-0.8 [facility] Comment on above: Performed By: #### C BC #### [facility] [place] [facility] [address] [place] [address] Dr. Hemanth Kerr Monocytes/100 WBC (Bld) 6.9 % Normal 1.7-12.0 [facility] Comment on above: Performed By: #### C BC #### [facility] [place] [facility] [address] [place] [address] Dr. Hemanth Kerr NEUT # 8.1 103/ul Critically high 1.4-6.5 [facility] [place] Comment on above: Performed By: #### C BC #### [facility] [place] [facility] [address] [place] [address] Dr. Hemanth Kerr Neutrophils/100 WBC (Bld) 79.6 % Critically high 43.0-75.0 [facility] [place] Comment on above: Performed By: #### C BC #### [facility] [place] [facility] [address] [place] [address] Dr. Hemanth Kerr Platelet mean volume (Bld) [Entitic vol] 10.8 fL Normal 9.5-13.5 [facility] [place] Comment on above: Performed By: #### C BC #### [facility] [place] [facility] [address] [place], [place] [address] Dr. Hemanth Kerr PLT 452 103/ul Critically high 150-450 [facility] [place] Comment on above: Performed By: #### C BC #### [facility] [place] [facility] [address] [place], [place] [address] Dr. Hemanth Kerr RBC 4.28 106/ul Normal 4.20-5.40 [facility] [place] Comment on above: Performed By: #### C BC #### [facility] [place] [facility] [address] [place], [place] [address] Dr. Hemanth Kerr WBC 10.1 103/ul Normal 4.0-11.0 [facility] Comment on above: Performed By: #### C BC #### [facility] [place] [facility] [address] [place], [place] [address] ABD/PELVIS WO CONon [...] CHRISTINE SÁNCHEZ Date: 2022-10-11 14:45 Normal [facility] URINE PROFILEon 3 Bilirubin Ql (U) Negative Normal NEGATIVE [facility] Comment on above: Performed By: #### L ACT #### [facility] [address] [place] [address] Dr. Hemanth Kerr Clarity (U) CLEAR Normal CLEAR [facility] Comment on above: Performed By: #### L ACT #### [facility] [address] [place] [address] Dr. Hemanth Kerr Color (U) LT. YELLOW Normal YELLOW [facility] Comment on above: Performed By: #### L ACT #### [facility] [address] [place] [address] Dr. Hemanth Kerr ERUAHD A micrscopic examina tion will be performed if indicated. Normal [facility] Comment on above: Performed By: #### L ACT #### [facility] [address] [place] [address] Dr. Hemanth Kerr Glucose Ql (U) Negative Normal NEGATIVE [facility] Comment on above: Performed By: #### L ACT #### [facility] [address] [place] [address] Dr. Hemanth Kerr Hemoglobin Ql (U) LARGE Abnormal NEGATIVE [facility] Comment on above: Performed By: #### L ACT #### [facility] [address] [place] [address] Dr. Hemanth Kerr Ketones Ql (U) Negative Normal NEGATIVE [facility] Comment on above: Performed By: #### L ACT #### [facility] [address] [place] [address] Dr. Hemanth Kerr LEUKOCYTES SMALL Abnormal NEGATIVE [facility] Comment on above: Performed By: #### L ACT #### [facility] [address] [place] [address] Dr. Hemanth Kerr Nitrite Ql (U) Negative Normal NEGATIVE [facility] Comment on above: Performed By: #### L ACT #### [facility] [address] [place] [address] Dr. Hemanth Kerr pH (U) 6.5 [pH] Normal 5-9 [facility] Comment on above: Performed By: #### L ACT #### [facility] [address] [place] [address] Dr. Hemanth Kerr Protein (U) [Mass/Vol] 30 mg/dL Abnormal NEGAT IVAN/ TRACE [facility] Comment on above: Performed By: #### L ACT #### [facility] [address] [place] [address] Dr. Hemanth Kerr SPEC GRAVITY <=1.005 Abnormal 1.005-<=1.02 5 [facility] Comment on above: Performed By: #### L ACT #### [facility] [address] [place] [address] Dr. Hemanth Kerr UR MICRO IND INDICATED Normal [facility] Comment on above: Performed By: #### L ACT #### [facility] [address] [place] [address] Dr. Hemanth Kerr Urobilinogen Qn (U) 1.0 {Jose'U}/dL Normal 0.2 - 1. 0 [facility] Comment on above: Performed By: #### L ACT #### [facility] [address] [place] [address] Dr. Hemanth Kerr PREG HCG QUALon 10-11-2022 , QUAL Negative Normal NEGATIVE [facility] Comment on above: Performed By: #### P REG #### [facility] [address] [place] [address] Dr. Hemanth Kerr PROF CHEM 8 (BAS METB)on Anion gap [Moles/Vol] 9.4 mmol/L Normal [facility] Comment on above: Performed By: #### L ACT #### [facility] [address] [place] [address] Dr. Hemanth Kerr Calcium [Mass/Vol] 8.8 mg/dL Normal 8.5-10.1 [facility] Comment on above: Performed By: #### L ACT #### [facility] [address] [address] [address] Hemanth Kerr Chloride [Moles/Vol] 97 mmol/L Critically low 98-107 [facility] Comment on above: Performed By: #### L ACT #### [facility] [address] [address] [address] Hemanth Kerr CO2 [Moles/Vol] 32.4 mmol/L Critically high 21.0-32.0 [facility] Comment on above: Performed By: #### L ACT #### [facility] [address] [address] [address] Hemanth Kerr Creatinine [Mass/Vol] 0.65 mg/dL Normal 0.55-1.02 [facility] Comment on above: Performed By: #### L ACT #### [facility] [address] [address] [address] Hemanth Kerr EGFR-AF MARSHALLESE >60 Normal >=60 [facility] Comment on above: Performed By: #### L ACT #### [facility] [address] [address] [address] Hemanth Kerr EGFR-NON AF MARSHALLESE >60 Normal >=60 [facility] Comment on above: Performed By: #### L ACT #### [facility] [address] [address] [address] Hemanth Kerr Glucose [Mass/Vol] 117 mg/dL Critically high 74-106 [facility] Comment on above: Performed By: #### L ACT #### [facility] [address] [address] [address] Hemanth Kerr Potassium [Moles/Vol] 2.8 mmol/L Critically low 3.5-5.1 [facility] Comment on above: Performed By: #### L ACT #### [facility] [address] [address] [address] Hemanth Kerr Sodium [Moles/Vol] 135 mmol/L Critically low 136-145 [facility] Comment on above: Performed By: #### L ACT #### [facility] [address] [address] [address] Hemanth Kerr Urea nitrogen [Mass/Vol] 8.0 mg/dL Normal 7.0-18.0 [facility] Comment on above: Performed By: #### L ACT #### [facility] [address] [place] [address] Dr. Hemanth Kerr Urea nitrogen/Creatinine [Mass ratio] 12.3 mg/mg Normal [facility] Comment on above: Performed By: #### L ACT #### [facility] [address] [place] [address] Dr. Hemanth Kerr URINE MICROSCOPIC ONLYon BACTERIA SMALL Abnormal NONE SEEN [facility] Comment on above: Performed By: #### L ACT #### [facility] [address] [place] [address] Dr. Hemanth Kerr Bacteria identified Cx Nom (U) INDICATED Normal [facility] Comment on above: Performed By: #### L ACT #### [facility] [address] [address] [address] Hemanth Kerr CAST NONE SEEN Normal NONE SEEN [facility] Comment on above: Performed By: #### L ACT #### [facility] [address] [place] [address] Dr. Hemanth Kerr Crystals LM Nom (Urine sed) NONE SEEN Normal NONE SEEN [facility] Comment on above: Performed By: #### L ACT #### [facility] [address] [place] [address] Dr. Hemanth Kerr Epithelial cells LM Ql (Urine sed) FEW Abnormal NONE SEEN /RARE [facility] Comment on above: Performed By: #### L ACT #### [facility] [address] [place] [address] Dr. Hemanth Kerr MUCOUS NONE SEEN Normal NONE SEEN [facility] Comment on above: Performed By: #### L ACT #### [facility] [address] [place] [address] Dr. Hemanth Kerr RBC 0-2 Normal 0-2 [facility] Comment on above: Performed By: #### L ACT #### [facility] [address] [place] [address] Dr. Hemanth Kerr WBC 10-20 Abnormal NONE SEEN [facility] Comment on above: Performed By: #### L ACT #### [facility] [address] [place] [address] Dr. Hemanth Kerr PREG QUANT HCGon 09-12-2022 HCG QUANT 66 mIU/mL Normal [facility] Comment on above: Performed By: #### C MP #### [facility] [address] [place] [address] Dr. Hemanth Kerr HCG RANGE SEE BELOW Normal [facility] Comment on above: Result Comment: 5-50 0.2-1 WEEK 50-500 1-2 WEEKS 100-5,000 2-3 WEEKS 500-10,000 3-4 WEEKS 1,000-50,000 4-5 WEEKS 10,000-100,000 5-6 WEEKS 15,000-200,000 6-8 WEEKS 10,000-100,000 2-3 MONTHS Performed By: #### C MP #### [facility] [address] [place] [address] Dr. Hemanth Kerr CBC AUTO DIFFon 08-16-2022 BASO # 0.0 103/ul Normal 0.0-0.1 [facility] Comment on above: Performed By: #### L ACT #### [facility] [address] [place] [address] Dr. Hemanth Kerr Basophils/100 WBC (Bld) 0.6 % Normal 0.2-2.0 [facility] Comment on above: Performed By: #### L ACT #### [facility] [address] [place] [address] Dr. Hemanth Kerr EO # 0.1 103/ul Normal 0.0-0.7 [facility] Comment on above: Performed By: #### L ACT #### [facility] [address] [place] [address] Dr. Hemanth Kerr Eosinophils/100 WBC (Bld) 1.3 % Normal 0.9-7.0 [facility] Comment on above: Performed By: #### L ACT #### [facility] [address] [place] [address] Dr. Hemanth Kerr Erythrocyte distribution width (RBC) [Ratio] 12.0 % Normal 11.0-15.0 [facility] Comment on above: Performed By: #### L ACT #### [facility] [address] [place] [address] Dr. Hemanth Kerr Hematocrit (Bld) [Volume fraction] 35.6 % Critically low 36.0-48.0 [facility] Comment on above: Performed By: #### L ACT #### [facility] [address] [place] [address] Dr. Hemanth Kerr Hemoglobin (Bld) [Mass/Vol] 12.4 g/dL Normal 12.0-16.0 [facility] Comment on above: Performed By: #### L ACT #### [facility] [address] [place] [address] Dr. Hemanth Kerr IG # 0.02 10e3/ul Normal 0.00-0.03 [facility] Comment on above: Performed By: #### L ACT #### [facility] [address] [place] [address] Dr. Hemanth Kerr IG % 0.3 % Normal 0.0-0.5 [facility] Comment on above: Performed By: #### L ACT #### [facility] [address] [place] [address] Dr. Hemanth Kerr LYMPH # 1.9 103/ul Normal 1.2-3.8 [facility] Comment on above: Performed By: #### L ACT #### [facility] [address] [place] [address] Dr. Hemanth Kerr Lymphocytes/100 WBC (Bld) 27.5 % Normal 20.5-60.0 [facility] Comment on above: Performed By: #### L ACT #### [facility] [address] [place] [address] Dr. Hemanth Kerr MANUAL DIFF REQ NO Normal [facility] Comment on above: Performed By: #### L ACT #### [facility] [address] [place] [address] Dr. Hemanth Kerr MCH (RBC) [Entitic mass] 29.6 pg Normal 26.7-34.0 [facility] Comment on above: Performed By: #### L ACT #### [facility] [address] [place] [address] Dr. Hemanth Kerr MCHC (RBC) [Mass/Vol] 34.8 g/dL Normal 29.9-35.2 [facility] Comment on above: Performed By: #### L ACT #### [facility] [address] [place] [address] Dr. Hemanth Kerr MCV (RBC) [Entitic vol] 85.0 fL Normal 81.0-99.0 [facility] Comment on above: Performed By: #### L ACT #### [facility] [address] [place] [address] Dr. Hemanth Kerr MONO # 0.4 103/ul Normal 0.3-0.8 [facility] Comment on above: Performed By: #### L ACT #### [facility] [address] [place] [address] Dr. Hemanth Kerr Monocytes/100 WBC (Bld) 6.3 % Normal 1.7-12.0 [facility] Comment on above: Performed By: #### L ACT #### [facility] [address] [place] [address] Dr. Hemanth Kerr NEUT # 4.5 103/ul Normal 1.4-6.5 [facility] Comment on above: Performed By: #### L ACT #### [facility] [address] [place] [address] Dr. Hemanth Kerr Neutrophils/100 WBC (Bld) 64.0 % Normal 43.0-75.0 [facility] Comment on above: Performed By: #### L ACT #### [facility] [address] [place] [address] Dr. Hemanth Kerr Platelet mean volume (Bld) [Entitic vol] 10.6 fL Normal 9.5-13.5 [facility] Comment on above: Performed By: #### L ACT #### [facility] [address] [place] [address] Dr. Hemanth Kerr PLT 247 103/ul Normal 150-450 [facility] Comment on above: Performed By: #### L ACT #### [facility] [address] [place] [address] Dr. Hemanth Kerr RBC 4.19 106/ul Critically low 4.20-5.40 [facility] Comment on above: Performed By: #### L ACT #### [facility] [address] [place] [address] Dr. Hemanth Kerr WBC 7.0 103/ul Normal 4.0-11.0 [facility] Comment on above: Performed By: #### L ACT #### [facility] [address] [place] [address] Dr. Hemanth Kerr Covid-19 PCR ([facility])on 07-20 SARS-CoV-2 (COVID-19) RNA ELMO+probe Ql (Unsp spec) Not detected Normal NOT DETECTED [facility] Comment on above: Result Comment: This test is not yet approved or cleared by the [place] FDA. When there are no FDA-approved or cleared tests available, and other criteria are met, FDA can make tests available under an emergency access mechanism called an Emergency Use Authorization (EUA). The EUA for this test is supported by the [place] of Health and Human Service's (HHS's) declaration [...] SARS-CoV-2. Performed By: #### C MP #### [facility] [address] [place] [address] Dr. Hemanth Kerr PREG QUANT HCGon 08-16-2022 HCG QUANT 20312 mIU/mL Normal [facility] Comment on above: Performed By: #### P REG #### [facility] [address] [place] [address] Dr. Hemanth Kerr HCG RANGE SEE BELOW Normal [facility] Comment on above: Result Comment: 5-50 0.2-1 WEEK 50-500 1-2 WEEKS 100-5,000 2-3 WEEKS 500-10,000 3-4 WEEKS 1,000-50,000 4-5 WEEKS 10,000-100,000 5-6 WEEKS 15,000-200,000 6-8 WEEKS 10,000-100,000 2-3 MONTHS Performed By: #### P REG #### [facility] [address] [place] [address] Dr. Hemanth Kerr PREG QUANT HCGon 08-14-2022 HCG QUANT 47762 mIU/mL Normal [facility] Comment on above: Performed By: #### P REG #### [facility] [address] [place] [address] Dr. Hemanth Kerr HCG RANGE SEE BELOW Normal [facility] Comment on above: Result Comment: 5-50 0.2-1 WEEK 50-500 1-2 WEEKS 100-5,000 2-3 WEEKS 500-10,000 3-4 WEEKS 1,000-50,000 4-5 WEEKS 10,000-100,000 5-6 WEEKS 15,000-200,000 6-8 WEEKS 10,000-100,000 2-3 MONTHS Performed By: #### P REG #### [facility] [address] [place] [address] Dr. Hemanth Kerr US PREG TVon 08-14-2022 [...] by: CHRISTINE SÁNCHEZ Date: 2022-08-14 16:22 Normal [facility] US PREG TVon 07-27-2022 US [...] by: CHRISTINE SÁNCHEZ Date: 2022-07-27 17:04 Normal [facility] XR CHEST 1 Von 07-09-2022 [...] by: FELIX WEBB Date: 2022-07-09 12:06 Normal [facility] CNPLarissa 12-12-2021 FRANK Telephone (CHANDANA) ----- NOE DURAN ([id number]) 1995 F Date Time Provider Department 12/12/21 KING SUAZO During your visit today, we recorded the following information about you: Angelia Almazan 12/12/2021 11:16 AM Signed Pleases sign pending new cbc order. Thanks, Angelia REN Almazan Allergies As of Date: 12/12/2021 (No Known Allergies) Date Reviewed: 12/12/2021 Reviewed by: Jasmin Zuñiga APRN.VASCULAR SURGERY PHYSICIAN - Fully Assessed Reason for Visit: Lab Orders [3898] Primary Visit Diagnosis:Iron deficiency anemia, unspecified iron deficiency anemia type [D50.9] Order(s):CBC + DIFF [SQCBCDIF] Order #: [id number] FUTURE Prescriptions as of 12/12/2021 - gabapentin (NEURONTIN) 400 mg capsule Take by mouth. - Polysaccharide Iron Complex 180 mg iron cap Take by mouth. - aspirin 81 mg cap Take 81 mg by mouth once daily. - ONDANSETRON HCL ORAL Take 4 mg by mouth as needed. Problem List As Of Date: 12/12/2021 (None) Encounter Status:Closed by JASMIN ZUÑIGA on 12/12/21 [facility] 11-10-2021 CNPN Telephone (HEMASA) ----- NOE DURAN ([id number]) 1995 F Date Time Provider Department 11/10/21 [...] B12 is slightly low. Options would be [id number] B12 tablets 2 mg daily or start [...] by JENNYFER DE LA O on 11/10/21 [facility] CNOVSPon 11-08-2021 CNOVSP Visit (SP) Office (HEMASA) ----- ARCADIONOE ([id number]) 1995 F Date Time Provider Department 11/08/21 11:00 AM KING SUAZO During your visit today, we recorded the following information about you: Temperature Pulse Respiration Blood pressure 97.7 degrees 108/minute 16/minute 127/70 Weight 93.4 kg King Suazo MD 11/08/2021 3:47 PM Signed PATIENT NAME: Noe Duran DATE: 11/08/2021 PRIMARY CARE PHYSICIAN: Dr. Rodo [...] shortness of breath, and is seen at [place] [facility]. Labs revealed a hemoglobin of [...] changes, r (more content not included)... Normal [facility] Comp Metabolic Panelon 11-08 Albumin [Mass/Vol] 3.6 g/dL Low 3.9-4.9 [facility] Comment on above: Performed By: #### S ERFOL, IRON, B12, FERR #### [facility] [address] [place], [place] [address] ALP [Catalytic activity/Vol] 79 U/L Normal 34-123 [facility] Comment on above: Performed By: #### S ERFOL, IRON, B12, FERR #### [address] [address] ALT [Catalytic activity/Vol] 8 U/L Normal 7-38 [facility] Comment on above: Performed By: #### S ERFOL, IRON, B12, FERR #### [place] [address] Anion gap [Moles/Vol] 9 mmol/L Normal 9-18 [facility] Comment on above: Performed By: #### S ERFOL, IRON, B12, FERR #### [place] [address] AST [Catalytic activity/Vol] 13 U/L Normal 13-35 [facility] Comment on above: Performed By: #### S ERFOL, IRON, B12, FERR #### [place] [address] Bilirubin [Mass/Vol] 0.2 mg/dL Normal 0.2-1.3 [facility] Comment on above: Performed By: #### S ERFOL, IRON, B12, FERR #### [place] [id number] Calcium [Mass/Vol] 9.3 mg/dL Normal 8.5-10.2 [facility] Comment on above: Performed By: #### S ERFOL, IRON, B12, FERR #### [place] [address] Chloride [Moles/Vol] 102 mmol/L Normal 97-105 [facility] Comment on above: Performed By: #### S ERFOL, IRON, B12, FERR #### [address], [place] [address] CO2 [Moles/Vol] 23 mmol/L Normal 22-30 [facility] Comment on above: Performed By: #### S ERFOL, IRON, B12, FERR #### [facility] [address] [address] Creatinine [Mass/Vol] 0.55 mg/dL Low 0.58-0.96 [facility] Comment on above: Performed By: #### S ERFOL, IRON, B12, FERR #### [facility] [address] [address] eGFR- Amer. >60 Normal [facility] Comment on above: Performed By: #### S ERFOL, IRON, B12, FERR #### [address] [place] [address] eGFR-All Other Races >60 Normal [facility] Comment on above: Result Comment: eGFR (Estimated [...] #### [facility] [address] [id number] Glucose [Mass/Vol] 96 mg/dL Normal 74-99 [facility] Comment on above: Result Comment: The [place] [employer] (ADA) provides guidance for cutoff [...] Standards of Medical Care in Diabetes 2016, [place] [employer]. Diabetes Care. 2016.39(Suppl 1). Performed By: #### S ERFOL, IRON, B12, FERR #### [facility] [address] [address] Potassium [Moles/Vol] 3.3 mmol/L Low 3.7-5.1 [facility] Comment on above: Performed By: #### S ERFOL, IRON, B12, FERR #### [facility] [address] [address] Protein [Mass/Vol] 6.3 g/dL Normal 6.3-8.0 [facility] Comment on above: Performed By: #### S ERFOL, IRON, B12, FERR #### [facility] [address] [id number] Sodium [Moles/Vol] 134 mmol/L Low 136-144 [facility] Comment on above: Performed By: #### S ERFOL, IRON, B12, FERR #### [facility] [address] [address] Urea nitrogen [Mass/Vol] 4 mg/dL Low 7-21 [facility] Comment on above: Performed By: #### S ERFOL, IRON, B12, FERR #### [facility] [address] [address] Ferritinon 11-08-2021 Ferritin [Mass/Vol] 203.0 ng/mL Normal 14.7-205.1 [facility] Comment on above: Performed By: #### S ERFOL, IRON, B12, FERR #### [address] [place] [place] [address] Folate, Serumon 11-08-2021 Folate [Mass/Vol] 8.5 ng/mL Normal >4.7 [facility] Comment on above: Performed By: #### S ERFOL, IRON, B12, FERR #### [address] [place] [place] [address] Iron and TIBCon 11-08-2021 Iron [Mass/Vol] 93 ug/dL Normal 41-186 [facility] Comment on above: Performed By: #### S ERFOL, IRON, B12, FERR #### [address] [place] [place] [address] TIBC 407 ug/dL High 232-386 [facility] Comment on above: Performed By: #### S ERFOL, IRON, B12, FERR #### [address] [place] [address] [place] [address] Transferrin Saturatn 23 % Normal 15-57 [facility] Comment on above: Performed By: #### S ERFOL, IRON, B12, FERR #### [place] [address] Remote CBCDIF (for [facility] use o nly)on 11-08-2021 Abs Baso <0.03 Normal <0.11 [facility] Abs Dorado 0.57 k/uL Normal <0.87 [facility] Abs Neut 4.67 k/uL Normal 1.45-7.50 [facility] Absolute nRBC <0.01 Normal <0.01 [facility] Basophils/100 WBC (Bld) 0.3 % Normal [facility] DTYPE Auto Diff Normal [facility] Eosinophils (Bld) [#/Vol] 0.05 10*3/uL Normal <0.46 [facility] Eosinophils/100 WBC (Bld) 0.8 % Normal [facility] Erythrocyte distribution width (RBC) [Ratio] 29.9 % High 11.5-15.0 [facility] Hematocrit (Bld) [Volume fraction] 32.6 % Low 36.0-46.0 [facility] Hemoglobin (Bld) [Mass/Vol] 10.1 g/dL Low 11.5-15.5 [facility] Lymphocytes (Bld) [#/Vol] 1.25 10*3/uL Normal 1.00-4.00 [facility] Lymphocytes/100 WBC (Bld) 19.1 % Normal [facility] MCH 25.1 pG Low 26.0-34.0 [facility] MCHC (RBC) [Mass/Vol] 31.0 g/dL Normal 30.5-36.0 [facility] MCV (RBC) [Entitic vol] 81.1 fL Normal 80.0-100.0 [facility] Monocytes/100 WBC (Bld) 8.7 % Normal [facility] Neutrophils/100 WBC (Bld) 71.1 % Normal [facility] NRBCs 0.0 /100 WBC Normal 0 [facility] Platelet mean volume (Bld) [Entitic vol] 10.3 fL Normal 9.0-12.7 [facility] Platelets (Bld) [#/Vol] 223 10*3/uL Normal 150-400 [facility] Comment on above: Result Comment: Resu lt checked and verified Sample checked for a clot. RBC (Bld) [#/Vol] 4.02 10*6/uL Normal 3.90-5.20 [facility] WBC (Bld) [#/Vol] 6.56 10*3/uL Normal 3.70-11.00 [facility] Reticulocyteon 11-08-2021 Abs Retic 0.140 M/uL High 0.0180-0.100 0 [facility] Comment on above: Performed By: #### S ERFOL, IRON, B12, FERR #### [facility] [address], [place] [id number] Retic% 3.5 % High 0.4-2.0 [facility] Comment on above: Performed By: #### S ERFOL, IRON, B12, FERR #### [facility] [address], [place] [id number] Vitamin B12on 11-08-2021 Cobalamin (Vitamin B12) [Mass/Vol] 218 pg/mL Low 232-1245 [facility] Comment on above: Performed By: #### S ERFOL, IRON, B12, FERR #### [facility] [address], [place] [address] CBCon 04-26-2020 Erythrocyte distribution width (RBC) [Ratio] 14.7 % High 11.8 - 14.4 % [place] Hematocrit (Bld) [Volume fraction] 36.0 % Low 36.3 - 47.1 % [place] Hemoglobin (Bld) [Mass/Vol] 10.9 g/dL Low 11.9 - 15.1 g/dL [place] Interpretation and review of laboratory results Abnormal [place] MCH (RBC) [Entitic mass] 26.2 pg 25.2 - 33.5 pg [place] MCHC (RBC) [Mass/Vol] 30.3 g/dL 28.4 - 34.8 g/dL [place] MCV (RBC) [Entitic vol] 86.5 fL 82.6 - 102.9 fL [place] Platelet mean volume (Bld) [Entitic vol] 10.8 fL 8.1 - 13.5 fL [place] Platelets (Bld) [#/Vol] 328 10*3/uL [place] RBC (Bld) [#/Vol] 4.16 10*6/uL 3.95 - 5.1 1 m/uL [place] WBC (Bld) [#/Vol] 0.0 10*3/uL 0.0 per 10 0 WBC [place] WBC (Bld) [#/Vol] 5.7 10*3/uL [place] Comprehensive Metabolic Pane perez 04-26-2020 Albumin [Mass/Vol] 3.4 g/dL Low 3.5 - 5.2 g/dL [place] Albumin/Globulin [Mass ratio] 1.5 {ratio} [place] ALP [Catalytic activity/Vol] 40 U/L 35 - 104 U/L [place] ALT [Catalytic activity/Vol] 12 U/L 5 - 33 U/L [place] Anion gap [Moles/Vol] 9 mmol/L 9 - 17 mmol/L [place] AST [Catalytic activity/Vol] 12 U/L <32 [place] Bilirubin Ql (U) <0.10 Low 0.3 - 1.2 mg/dL [place] Bun/Cre Ratio 26 High [place] Calcium [Mass/Vol] 9.3 mg/dL 8.6 - 10. 4 mg/dL [place] Chloride [Moles/Vol] 109 mmol/L High 98 - 10 7 mmol/L [place] CO2 [Moles/Vol] 26 mmol/L 20 - 31 mmol/L [place] Creatinine [Mass/Vol] 0.57 mg/dL 0.5 - 0.9 mg/dL [place] GFR >60 >60 mL/min [place] GFR Non- >60 >60 mL/min [place] Glucose [Mass/Vol] 92 mg/dL 70 - 99 mg/dL [place] Interpretation and review of laboratory results Abnormal [place] Potassium [Moles/Vol] 3.8 mmol/L 3.7 - 5.3 mmol/L [place] Protein [Mass/Vol] 5.7 g/dL Low 6.4 - 8.3 g/dL [place] Sodium [Moles/Vol] 144 mmol/L 135 - 144 mmol/L [place] Urea nitrogen [Mass/Vol] 15 mg/dL 6 - 20 mg/dL [place] HCG Qualitative, Serumon hCG Qual Negative NEGATIVE [place] Comment on above: Specimens with hCG l evels near the threshold of the test (25 mIU/mL) may give a negative or indeterminate result. In such cases, another test should be performed with a new specimen in 48-72 hours. If early is suspected clinically in this setting, correlation with quantitative serum b-hCG level is suggested. [facility] has confirmed the use of plasma for this test. This has not been cleared or approved by the U.S. Food and Drug Administration. The FDA has determined that such clearance is not necessary. HIV Screenon 04-26-2020 HIV Ag/Ab NONREACTIVE NONREACTIVE [place] Comment on above: No laboratory eviden ce of HIV infection. If acute HIV infection is suspected, consider testing for HIV-1 RNA. Hepatitis Panel, Acuteon HAV IgM IA Qn (S) NONREACTIVE NONREACTIVE [place] Hep B Core Ab, IgM NONREACTIVE NONREACTIVE [place] Hepatitis B Surface Ag NONREACTIVE NONREACTIVE [place] Hepatitis C Ab REACTIVE Abnormal NONREACTIVE [place] Comment on above: The hepatitis C [...] Interpretation and review of laboratory results Abnormal [place] Metabolic Panelon 04-26-2020 GFR/1.73 sq M predicted among non-blacks MDRD (S/P/Bld) [Vol rate/Area] [place] Comment on above: Stage 1: Some [...] body mass. Additional eGFR calculator available at: http://www.[employer]multiple_crcl_2012.htm Microscopic Urinalysison Amorphous, UA NOT REPORTED None [facility] [place] Bacteria, UA NOT REPORTED None [facility] [place] Casts UA NOT REPORTED /LPF [facility] [place] Crystals, UA 5 TO 10 Abnormal None /HPF [facility] [place] Crystals, UA CALCIUM OXALATE Abnormal None /HPF [facility] [place] Epithelial Cells UA 0 TO 2 [facility] [place] Interpretation and review of laboratory results Abnormal [facility] [place] Mucus, UA TRACE Abnormal None [facility] [place] Other Observations UA NOT REPORTED NOT REQ. [facility] [place] RBC (U) [#/Vol] None [facility] [place] Renal Epithelial, UA NOT REPORTED 0 /HPF Me [facility] Trichomonas, UA NOT REPORTED None [facility] [place] WBC, UA 0 TO 2 [facility] [place] Yeast, UA NOT REPORTED None [facility] - [facility] [place] Urinalysis Reflex to Culture on 04-26-2020 Bilirubin Urine Negative NEGATIVE [facility] [place] Color, UA YELLOW YELLOW [place] Glucose, Ur Negative NEGATIVE [facility] [place] Interpretation and review of laboratory results Abnormal [facility] [place] Ketones Ql (U) Negative NEGATIVE [facility] [place] Leukocyte esterase Test strip Ql (U) Negative NEGATIVE [facility] [place] Nitrite, Urine Negative NEGATIVE [facility] pH, UA 6.5 [place] Protein (U) [Mass/Vol] Negative NEGATIVE [facility] Specific [place], UA 1.025 [facility] Turbidity UA CLEAR CLEAR [facility] [place] Urinalysis Comments NOT REPORTED [facility] Urine Hgb Negative NEGATIVE [facility] [place] Urobilinogen, Urine Normal Normal [facility] ED Clinical Summaryon 2019 ED Clinical Summary (Inserted Image. Ritika ble to display) [id number] [place] [address] ED Clinical Summary Person Information Name: Kathryn Duran/NewKiko Age: 25 Years : 1995 Sex: Female PCP: Marital Status: Single Phone: Race: White Ethnicity: Not or Language: Brazilian Visit Reason: Drug withdrawal; Drug withdrawal Acuity: 3 Enc Type: Emergency Med Service: Emergency Medicine Arrival: 03/16/2020 20:10:45 Discharge: 03/17/2020 02:12:00 LOS: 000 06:02 Checkin: 03/16/2020 20:10:45 Checkout: 03/17/2020 02:12:00 Dispo Type: Home or Self Care Address: [address] [place] [id number] Provider Notes: Diagnosis: 1:Affective disorder; 2:Drug usage [...] range between ( 27.2 and 40.8 ) [place] Auto: 11.4 % -- Normal range between [...] range between ( 36.0 and 46.0 ) [place] Absolute: 1.5 x10 MCH: 27.4 pg -- [...] do not crush or chew. Last Dose: gabapentin (gabapentin 300 mg oral capsule) 1 Capsules Oral (given by mouth) 3 times a day. Last Dose: naltrexone (Vivitrol 380 mg intramuscular injection, extended release) inject 380 MG intramusclar every FOUR WEEKS. Last Dose: Other Medications DULoxetine (DULoxetine 30 mg oral [...] 03/16/2020 20:20:41 Follow up: With: Address: When: [facility] - In [place], [place] Within 1 to 2 days Discharge Orders: Discharge Patient 03/17/20 1:45:00 EDT, Discharge to Home, Self Patient Education Information: Understanding Methamphetamine Abuse and Addiction; Treating Affective (Mood) Disorders [facility] Poison Help line: . [facility] Hotline: [place] Tobacco Quit Line: [place], [place]) [address]: [phone] [place], [place]) [address]: [phone] [facility] [address] [place], [place]: [phone] Normal [facility] hCG Quantitativeon 0 Beta hCG Qnt 1.7 mIU/mL Normal 0.0-4.9 [facility] Comment on above: Result Comment: 0.0 - 4.9 Negative for 5.0 - 25.0 Indeterminant for : Suggest repeat in 72 hours. >25.0 Positive for Performed By: #### H CG ####[address] [address] .UA Microscp Aon 03-16-2020 UA Hyline Cast Qual >20 Abnormal Negative [facility] Comment on above: Performed By: #### C [id number] ####[address] [place] [address] UA Mucus Present Abnormal Absent [facility] Comment on above: Performed By: #### C [id number] ####[address] [place] [address] UA RBC Quant 12 /HPF High 0-5 [facility] Comment on above: Performed By: #### C [id number] ####[address] [address] UA Squepi Cells Quant 6 /HPF Normal 0-29 [facility] Comment on above: Performed By: #### C [id number] ####[address] [address] UA WBC Quant 7 /HPF High 0-5 [facility] Comment on above: Performed By: #### C [id number] ####[address] [address] .eGFRon 03-16-2020 eGFR AA 52 mL/min/1.73m? Low >=60 [facility] Comment on above: Result Comment: Resu lt = 0-14.9 mL/min/1.73 m2 Kidney failure or Dialysis Result = 15-29 mL/min/1.73 m2 Severe decrease in GFR Result = 30-59 mL/min/1.73 m2 Moderate decrease in GFR Result >= 60 mL/min/1.73 m2 Normal or increased GFR Performed By: #### E GFR #### [address] [address] eGFR Non-AA 43 mL/min/1.73m? Low >=60 [facility] [...] dosing. Performed By: #### E GFR #### [address] [address] CBC w/ Diffon 03-16-2020 Erythrocyte distribution width (RBC) [Ratio] 15.9 % High 11.6-14.8 [facility] Comment on above: Performed By: #### C BC #### [address] [address] Hematocrit (Bld) [Volume fraction] 37.5 % Normal 36.0-46.0 [facility] Comment on above: Performed By: #### C BC #### [address] [address] Hemoglobin (Bld) [Mass/Vol] 12.5 g/dL Normal 12.0-16.0 [facility] Comment on above: Performed By: #### C BC #### [address] [address] MCH (RBC) [Entitic mass] 27.4 pg Normal 27.0-35.0 [facility] Comment on above: Performed By: #### C BC #### [address] [address] MCHC (RBC) [Mass/Vol] 33.2 % Normal 31.0-37.0 [facility] Comment on above: Performed By: #### C BC #### [address] [address] MCV (RBC) [Entitic vol] 82.4 fL Normal 80.0-100.0 [facility] Comment on above: Performed By: #### C BC #### [address] [address] Platelet mean volume (Bld) [Entitic vol] 9.4 fL Normal 6.7-10.6 [facility] Comment on above: Performed By: #### C BC #### [address] [address] Platelets (Bld) [#/Vol] 307 x10*3/mcL Normal 150-350 [facility] Comment on above: Performed By: #### C BC #### [address] [address] RBC (Bld) [#/Vol] 4.55 x10*6/mcL Normal 3.80-5.20 [facility] Comment on above: Performed By: #### C BC #### [address] [address] WBC (Bld) [#/Vol] 12.9 x10*3/mcL High 4.5-11.0 [facility] Comment on above: Performed By: #### C BC #### [address] [address] [facility] Albumin [Mass/Vol] 5.2 g/dL High 3.2-4.9 [facility] Comment on above: Result Comment: [facility] Laboratory updated the methodology used for albumin testing on 04/24/18. Albumin measurement was performed using a bromcresol purple dye-binding assay. Performed By: #### C OMP #### [address] [address] Albumin/Globulin [Mass ratio] 1.5 {ratio} Normal 1.1-2.2 [facility] Comment on above: Performed By: #### C OMP #### [address] [address] Alk Phos 47 IU/L Normal 32-91 [facility] Comment on above: Performed By: #### C OMP #### [address] [address] ALT [Catalytic activity/Vol] 19 U/L Normal 14-54 [facility] Comment on above: Performed By: #### C OMP #### [address] [address] Anion gap [Moles/Vol] 22 mmol/L High 7-17 [facility] Comment on above: Performed By: #### C OMP #### [address] [place] [address] AST [Catalytic activity/Vol] 31 U/L Normal 15-41 [facility] Comment on above: Performed By: #### C OMP #### [address] [place] [address] Bili Total 1.4 mg/dL High 0.3-1.2 [facility] Comment on above: Performed By: #### C OMP #### [address] [place] [address] Calcium [Mass/Vol] 10.2 mg/dL Normal 8.5-10.3 [facility] Comment on above: Performed By: #### C OMP #### [address] [place] [address] Chloride [Moles/Vol] 100 mmol/L Normal 98-110 [facility] Comment on above: Performed By: #### C OMP #### [address] [place] [address] CO2 [Moles/Vol] 19 mmol/L Low 22-32 [facility] Comment on above: Performed By: #### C OMP #### [address] [place] [address] Creatinine [Mass/Vol] 1.47 mg/dL High 0.44-1.03 [facility] Comment on above: Performed By: #### C OMP #### [address] [place] [address] Glucose [Mass/Vol] 85 mg/dL Normal 70-99 [facility] Comment on above: Performed By: #### C OMP #### [address] [place] [address] Potassium [Moles/Vol] 3.7 mmol/L Normal 3.4-4.8 [facility] Comment on above: Performed By: #### C OMP #### [address] [place] [address] Protein [Mass/Vol] 8.7 g/dL High 6.5-8.1 [facility] Comment on above: Performed By: #### C OMP #### [address] [address] Sodium [Moles/Vol] 137 mmol/L Normal 133-142 [facility] Comment on above: Performed By: #### C OMP #### [address] [address] Urea nitrogen [Mass/Vol] 25 mg/dL Normal 8-26 [facility] Comment on above: Performed By: #### C OMP #### [address] [address] Urea nitrogen/Creatinine [Mass ratio] 17.0 mg/mg Normal 10.0-20.0 [facility] Comment on above: Performed By: #### C OMP #### [address] [address] CPKon 03-16-2020 Creatine Phosphokinase 439 IU/L High 38-234 [facility] Comment on above: Performed By: #### C P #### [address] [address] Diff Autoon 03-16-2020 Baso Absolute 0.0 x10*3/mcL Normal 0.0-0.2 [facility] Comment on above: Performed By: #### . Automated Diff #### [address] [address] Basophils/100 WBC (Bld) 0.4 % Normal 0.0-1.5 [facility] Comment on above: Performed By: #### . Automated Diff #### [address] [address] Eos Absolute 0.0 x10*3/mcL Normal 0.0-0.4 [facility] Comment on above: Performed By: #### . Automated Diff #### [address] [address] Eosinophils/100 WBC (Bld) 0.1 % Normal 0.0-5.4 [facility] Comment on above: Performed By: #### . Automated Diff #### [address] [address] Lymphocytes (Bld) [#/Vol] 1.4 x10*3/mcL Normal 1.0-4.8 [facility] Comment on above: Performed By: #### . Automated Diff #### [address] [address] Lymphocytes/100 WBC (Bld) 10.8 % Low 27.2-40.8 [facility] Comment on above: Performed By: #### . Automated Diff #### [address] [address] [place] Absolute 1.5 x10*3/mcL High 0.1-1.1 [facility] Comment on above: Performed By: #### . Automated Diff #### [address] [address] Monocytes/100 WBC (Bld) 11.4 % Normal 3.7-11.9 [facility] Comment on above: Performed By: #### . Automated Diff #### [address] [address] Neutro Absolute 10.0 x10*3/mcL High 1.8-7.7 [facility] Comment on above: Performed By: #### . Automated Diff #### [address] [address] Neutro Auto 77.3 % High 47.2-70.8 [facility] Comment on above: Performed By: #### . Automated Diff #### [address] [address] ED Note-Nursingon 03-16-2020 ED Note-Nursing Lab called about add ons Electronically signed by Barbara Holman 03/16/20 20:49 EDT Normal [facility] ED Note-Physicianon 06-30-20 20 ED Note-Physician Chief Complaint I want to [...] that she has residential set up at [facility] in [place], [place] but she has to detox first. [...] ED as well. She was seen by Alonso social studies teacher who has arranged for her to go to [facility] tomorrow as patient is interested in treatment. Verbally contracted to safety and filled out a safety plan. Alonso with social work spoke with sales and marketing director, Jelena who will arrange for further follow-up when they arrive tomorrow. Family is agreeable with plan. Patient has good support. They will return if any changes of symptoms or concern. Silvia Castañeda scribing for and in the presence of Dr. Cornell. Scribe Attestation: The information in this document, created by the medical editor for me, accurately reflects the services I personally performed and the decisions made by me. Reexamination/Reevaluatio n She is resting, calmly in the bed [...] High Lymph Auto 03/16/20 20:39 10.8 Low [place] Auto 03/16/20 20:39 11.4 Eos Auto 03/16/20 20:39 0.1 Basophil Auto 03/16/20 20:39 0.4 Neutro Absolute 03/16/20 20:39 10.0 High Lymph Absolute 03/16/20 20:39 1.4 [place] Absolute 03/16/20 20:39 1.5 High Eos Absolute [...] [place] Cornell MD 03/17/2020 04:16 EDT Normal [facility] Ethanolon 03-16-2020 Ethanol [Mass/Vol] mg/dL Normal <=9 [facility] Comment on above: Result Comment: To c onvert mg/dL to g/dL, divide result by 1,000. Legal limit of intoxication is 80 mg/dL (0.08 g/dL). Performed By: #### A LC #### [address] [address] UA w Culture if Indon 2019 Color (U) Terri Normal [facility] Comment on above: Performed By: #### U CI #### [address] [address] Glucose (U) [Mass/Vol] Negative Normal Negative [facility] Comment on above: Performed By: #### U CI #### [address] [address] Ketones Ql (U) 20 mg/dL Abnormal Negative [facility] Comment on above: Performed By: #### U CI #### [address] [place] [address] UA Blood Small Abnormal Negative [facility] Comment on above: Performed By: #### U CI #### [facility] [address] [place] [address], [place] [address] UA Clarity Cloudy Normal [facility] Comment on above: Performed By: #### U CI #### [address] [place] [address] UA Leukocyte Esterase Trace Abnormal Negative [facility] Comment on above: Performed By: #### U CI #### [address] [place] [address] UA Nitrite Negative Normal Negative [facility] Comment on above: Performed By: #### U CI #### [address] [place] [address] UA pH 5.0 Normal 4.5 - 7.8 [facility] Comment on above: Performed By: #### U CI #### [address] [place] [address] UA Protein 100 mg/dL Abnormal Negative [facility] Comment on above: Performed By: #### U CI #### [address] [address] UA Source Clean Catch Normal [facility] Comment on above: Performed By: #### U CI #### [address] [place] [address] UA Spec Grav 1.025 Normal 1.003-1.035 [facility] Comment on above: Performed By: #### U CI #### [address] [place] [address] UA Urobilinogen 0.2 mg/dL Normal 0.2 - 1.0 [facility] Comment on above: Performed By: #### U CI #### [address] [place] [address] Urobilinogen Qn (U) Small Abnormal Negative [facility] Comment on above: Performed By: #### U CI #### [address] [address] UDS Compon 03-16-2020 Creatinine [Mass/Vol] mg/dL Normal [facility] Comment on above: Performed By: #### C [id number] #### [address] [address] Ur Amph Scrn Positive Abnormal NEG = <1000 [facility] Comment on above: Result Comment: This unconfirmed positive screening result is to be used for medical treatment purposes only. Unconfirmed screening results must not be used for non-medical purposes. (e.g. employment testing, legal testing). Performed By: #### C [id number] #### [address] [address] Ur Anastasia Scrn Negative Normal NEG = <200 [facility] Comment on above: Performed By: #### C [id number] #### [address] [address] Ur Benzodia Scrn Negative Normal NEG = <200 [facility] Comment on above: Performed By: #### C [id number] #### [address] [address] Ur Cannab Scrn Negative Normal NEG = <50 [facility] Comment on above: Performed By: #### C [id number] #### [address] [address] Ur Cocaine Scrn Negative Normal NEG = <300 [facility] Comment on above: Performed By: #### C [id number] #### [address] [address] Ur Methadone Scn Negative Normal NEG = <300 [facility] Comment on above: Performed By: #### C [id number] #### [address] [address] Ur Opiate Scrn Negative Normal NEG = <300 [facility] Comment on above: Performed By: #### C [id number] #### [address] [address] Ur Oxy Screen Negative Normal NEG = <100 [facility] Comment on above: Performed By: #### C [id number] #### [facility] [address] [place] [address] Ur Oxy Scrn Qnt 54 ng/mL Normal <=99 [facility] Comment on above: Performed By: #### C [id number] #### [facility] [address] [place] [address] Ur PCP Scrn Negative Normal NEG = <25 [facility] Comment on above: Performed By: #### C [id number] #### [address] [place] [address] UA pH 5.0 Normal 4.5 - 7.8 [facility] Comment on above: Performed By: #### C [id number] #### [address] [address] UA Spec Grav 1.024 Normal 1.003-1.035 [facility] Comment on above: Performed By: #### C [id number] #### [address] [address] HIV Screenon 11-21-2019 HIV Ag/Ab NONREACTIVE NONREACTIVE [place] Comment on above: No laboratory eviden ce of HIV infection. If acute HIV infection is suspected, consider testing for HIV-1 RNA. HCG, Quantitative, on 11-20-2019 hCG Quant [id number] High <5 IU/L [place] Comment on above: Non-preg premeno <=5 Postmeno <=8 Male <=3 If HCG results do not concur with clinical observations, additional testing to confirm results is recommended. Elevated results not associated with may be found in patients with other diseases such as tumors of the germ cells (testis, ovaries, etc.), bladder, pancreas, stomach, lungs, and liver. Interpretation and review of laboratory results Abnormal [place] Hepatitis C Antibodyon 11-19 Hepatitis C Ab REACTIVE Abnormal NONREACTIVE [place] Comment on above: The hepatitis C [...] Interpretation and review of laboratory results Abnormal [place] TYPE AND SCREENon 0 11-20-2019 ABO/Rh Positive [place] Urine Drug Screen, Comprehen siveon 11-20-2019 Amphetamine Screen, Ur Negative NEGATIVE [facility] Barbiturate Screen, Ur Negative NEGATIVE [facility] Benzodiazepine Screen, Urine Negative NEGATIVE [facility] Buprenorphine Urine Negative NEGATIVE [facility] Cannabinoid Scrn, Ur Negative NEGATIVE [facility] Cocaine Metabolite, Urine Negative NEGATIVE [facility] MDMA, Urine NOT REPORTED NEGATIVE [place] Methadone Screen, Urine Negative NEGATIVE [facility] Methamphetamine, Urine Negative NEGATIVE [facility] Opiates, Urine Negative NEGATIVE [facility] Oxycodone Screen, Ur Negative NEGATIVE [facility] Phencyclidine, Urine Negative NEGATIVE [facility] Propoxyphene, Urine Negative NEGATIVE [facility] Test Information NOT REPORTED [place] Tricyclic Antidepressants, Urine Negative NEGATIVE [place] Comment on above: Drug screen results are to be used for medical purposes only. All positive results are unconfirmed. Testing for employment or legal uses should be sent to a reference laboratory for confirmation. HCG, Quantitative, on 06-19-2019 hCG Quant [id number] High <5 IU/L [place] Comment on above: Non-preg premeno <=5 Postmeno <=8 Male <=3 If HCG results do not concur with clinical observations, additional testing to confirm results is recommended. Elevated results not associated with may be found in patients with other diseases such as tumors of the germ cells (testis, ovaries, etc.), bladder, pancreas, stomach, lungs, and liver. Interpretation and review of laboratory results Abnormal [place] HIV Screenon 06-19-2019 HIV Ag/Ab NONREACTIVE NONREACTIVE [place] Comment on above: No laboratory eviden ce of HIV infection. If acute HIV infection is suspected, consider testing for HIV-1 RNA. Hepatitis C Antibodyon 06-19 Hepatitis C Ab REACTIVE Abnormal NONREACTIVE [place] Comment on above: The hepatitis C [...] Interpretation and review of laboratory results Abnormal [place] PROFILE Ion 019 Basophils (Bld) [#/Vol] 10*3/uL [place] Basophils/100 WBC (Bld) 1 % 0 - 2 % [place] Differential Type NOT REPORTED [place] Eosinophils (Bld) [#/Vol] 0.09 10*3/uL [place] Eosinophils/100 WBC (Bld) 2 % 1 - 4 % [place] Erythrocyte distribution width (RBC) [Ratio] 15.7 % High 11.8 - 14.4 % [place] [place] Hematocrit (Bld) [Volume fraction] 36.5 % 36.3 - 47.1 % [place] Hemoglobin (Bld) [Mass/Vol] 11.2 g/dL Low 11.9 - 15.1 g/dL [place] Hepatitis B Surface Ag NONREACTIVE NONREACTIVE [place] Immature granulocytes (Bld) [#/Vol] 0 % 0 [place] Immature granulocytes (Bld) [#/Vol] 10*3/uL [place] Interpretation and review of laboratory results Abnormal [place] Lymphocytes (Bld) [#/Vol] 1.98 10*3/uL [place] Lymphocytes/100 WBC (Bld) 46 % High 24 - 43 % [place] MCH (RBC) [Entitic mass] 25.6 pg 25.2 - 33.5 pg [place] MCHC (RBC) [Mass/Vol] 30.7 g/dL 28.4 - 34.8 g/dL [place] MCV (RBC) [Entitic vol] 83.3 fL 82.6 - 102.9 fL [place] Monocytes (Bld) [#/Vol] 0.37 10*3/uL [place] Monocytes/100 WBC (Bld) 9 % 3 - 12 % [place] Platelet mean volume (Bld) [Entitic vol] 11.6 fL 8.1 - 13.5 fL [place] Platelets (Bld) [#/Vol] NOT REPORTED [place] Platelets (Bld) [#/Vol] 196 10*3/uL [place] RBC (Bld) [#/Vol] 4.38 10*6/uL 3.95 - 5.1 1 m/uL [place] RBC morphology finding Nom (Bld) NOT REPORTED [place] Rubella virus IgG Ql (S) 286.1 IU/mL [place] Comment on above: REFERENCE RANGE: <5.0 NON-REACTIVE (non-immune) 5.0 TO 9.9 EQUIVOCAL >=10.0 REACTIVE (immune) Segmented neutrophils/100 WBC (Bld) 42 % 36 - 65 % [place] Segs Absolute 1.75 [place] T. pallidum, IgG NONREACTIVE NONREACTIVE [place] Comment on above: T. pallidum antibodies are not detected. There is no serological evidence of infection with T. pallidum (early primary syphilis cannot be excluded). Retest in 2-4 weeks if syphilis is clinically suspect. WBC (Bld) [#/Vol] 4.2 10*3/uL [place] WBC (Bld) [#/Vol] 0.0 10*3/uL 0.0 per 10 0 WBC [place] WBC Morphology NOT REPORTED [place] TYPE AND SCREENon 1 ABO/Rh Positive [place] Urine Drug Screen, Comprehen siveon 06-19-2019 Amphetamine Screen, Ur Negative NEGATIVE [facility] [place] Barbiturate Screen, Ur Negative NEGATIVE [facility], [place] Benzodiazepine Screen, Urine Negative NEGATIVE [facility] Buprenorphine Urine Negative NEGATIVE [facility] Cannabinoid Scrn, Ur Negative NEGATIVE [facility] Cocaine Metabolite, Urine Negative NEGATIVE [facility] Interpretation and review of laboratory results Abnormal [place] MDMA, Urine NOT REPORTED NEGATIVE [place] Methadone Screen, Urine Negative NEGATIVE [facility] Methamphetamine, Urine Negative NEGATIVE [facility] Opiates, Urine Negative NEGATIVE [facility] Oxycodone Screen, Ur Negative NEGATIVE [facility] Phencyclidine, Urine Negative NEGATIVE [facility] Propoxyphene, Urine Negative NEGATIVE [place] Test Information NOT REPORTED [place] Tricyclic Antidepressants, Urine Positive Abnormal NEGATIVE [place] Comment on above: Drug screen results are to be used for medical purposes only. All positive results are unconfirmed. Testing for employment or legal uses should be sent to a reference laboratory for confirmation. Comprehensive Metabolic Pane perez 05-09-2019 Albumin [Mass/Vol] 4.3 g/dL 3.5 - 5.2 g/dL [place] Albumin/Globulin [Mass ratio] 1.4 {ratio} [place] ALP [Catalytic activity/Vol] 50 U/L 35 - 104 U/L [place] ALT [Catalytic activity/Vol] 9 U/L 5 - 33 U/L [place] Anion gap [Moles/Vol] 8 mmol/L Low 9 - 17 mmol/L [place] AST [Catalytic activity/Vol] 15 U/L <32 [place] Bilirubin Ql (U) 0.31 mg/dL 0.3 - 1.2 mg/dL [place] Bun/Cre Ratio 20 [place] Calcium [Mass/Vol] 9.4 mg/dL 8.6 - 10. 4 mg/dL [place] Chloride [Moles/Vol] 102 mmol/L 98 - 10 7 mmol/L [place] CO2 [Moles/Vol] 28 mmol/L 20 - 31 mmol/L [place] Creatinine [Mass/Vol] 0.92 mg/dL High 0.5 - 0.9 mg/dL [place] GFR >60 >60 mL/min [place] GFR Non- >60 >60 mL/min [place] Glucose [Mass/Vol] 91 mg/dL 70 - 99 mg/dL [place] Interpretation and review of laboratory results Abnormal [place] Potassium [Moles/Vol] 4.3 mmol/L 3.7 - 5.3 mmol/L [place] Protein [Mass/Vol] 7.4 g/dL 6.4 - 8.3 g/dL [place] Sodium [Moles/Vol] 138 mmol/L 135 - 144 mmol/L [place] Urea nitrogen [Mass/Vol] 18 mg/dL 6 - 20 mg/dL [place] Hepatitis Panel, Acuteon HAV IgM IA Qn (S) NONREACTIVE NONREACTIVE [place] Hep B Core Ab, IgM NONREACTIVE NONREACTIVE [place] Hepatitis B Surface Ag NONREACTIVE NONREACTIVE [place] Hepatitis C Ab REACTIVE Abnormal NONREACTIVE [place] Comment on above: The hepatitis C [...] Interpretation and review of laboratory results Abnormal [place] Metabolic Panelon 05-09-2019 GFR/1.73 sq M predicted among non-blacks MDRD (S/P/Bld) [Vol rate/Area] [place], [place] Comment on above: Average GFR for 20-2 9 years old: 116 mL/min/1.73sq m Chronic Kidney Disease: <60 mL/min/1.73sq m Kidney failure: <15 mL/min/1.73sq m eGFR calculated using average adult body mass. Additional eGFR calculator available at: http://www.[employer].com/multiple_crcl_2012.htm Stage 1: Some kidney damage normal GFR Stage 2: Mild kidney damage GFR 60-89 Stage 3: Moderate kidney damage GFR 30-59 Stage 4: Severe kidney damage GFR 15-29 Stage 5: Severe kidney damage GFR <15 ESRD - chronic treatment by dialysis or transplant Drug Scr, Abuse, Uron 2017 Amphetamine(s),Ur Positive Abnormal NEG [facility] Comment on above: Result Comment: (Pos itive cutoff 1000 ng/mL) Performed By: #### D AU ####[address] [address] Barbiturate(s),Ur Negative Normal NEG [facility] Comment on above: Result Comment: (Pos itive cutoff 200 ng/mL) Performed By: #### D AU ####[address] [address] Base excess Negative Normal NEG [facility] Comment on above: Result Comment: (Pos itive cutoff 300 ng/mL) Performed By: #### D AU ####[address] [address] Benzodiazepine(s) Negative Normal NEG [facility] Comment on above: Result Comment: (Pos itive cutoff 200 ng/mL) Performed By: #### D AU ####[address] [address] Cannabinoid(s),Ur Negative Normal NEG [facility] Comment on above: Result Comment: (Pos itive cutoff 50 ng/mL) Performed By: #### D AU ####[address] [address] Interpretive Info Assay provides medic al screening only. The absence of expected drug(s) and/or Normal [facility] Comment on above: Result Comment: meta bolite(s) may indicate diluted or adulterated urine, limitations of testing or timing of collection.Testing for legal purposes should be confirmed by another method. To request confirmation of test result, please call the lab within 7 days of sample submission.Performed at [facility] [address] [place] [address] Performed By: #### D AU ####[address] [address] Opiate(s), Ur Negative Normal NEG [facility] Comment on above: Result Comment: (Pos itive cutoff 300 ng/mL) Performed By: #### D AU ####[address] [address] Oxycodone, Urine Negative Normal NEG [facility] Comment on above: Result Comment: (Pos itive cutoff 100 ng/mL) Performed By: #### D AU ####[address] [place] [address] Phencyclidine, Ur Negative Normal NEG [facility] Comment on above: Result Comment: (Pos itive cutoff 25 ng/mL) Performed By: #### D AU ####[address] [place] [address] Urine, methadone presence Negative Normal NEG [facility] Comment on above: Result Comment: (Pos itive cutoff 300 ng/mL) Performed By: #### D AU ####[address] [place] [address] Buprenorphrine, Ur NOT REPORTED Normal NEG [facility] Comment on above: Performed By: #### D AU ####[address] [place] [address] MDMA, Urine NOT REPORTED Normal NEG [facility] Comment on above: Performed By: #### D AU ####[facility] [facility] [place] [address] Methamphetamine, Ur NOT REPORTED Normal NEG [facility] Comment on above: Performed By: #### D AU ####[facility] [place] [address].[place] [address] Propoxyphene,Urine NOT REPORTED Normal NEG [facility] Comment on above: Performed By: #### D AU ####[facility] [place] [address].[place] [address] Urine, tricyclic antidepressants NOT REPORTED Normal NEG [facility] Comment on above: Performed By: #### D AU ####[address] [place] [address] Lipid Profileon 11-05-2017 Cholesterol 137 mg/dL Normal <200 [facility] Comment on above: Result Comment: Chol esterol Guidelines: <200 Desirable 200-240 Borderline >240 Undesirable Performed By: #### L IPR ####[facility] [place] [address].[place] [address] Cholesterol to HDL Ratio 4.3 {ratio} Normal <5 [facility] Comment on above: Performed By: #### L IPR ####[facility] [place] [address].[place] [address] HDL Cholesterol 32 mg/dL Low >40 [facility] Comment on above: Result Comment: HDL Guidelines: <40 Undesirable 40-59 Borderline >59 Desirable Performed By: #### L IPR ####[address] [place] [address] LDL Cholesterol 82 mg/dL Normal 0-130 [facility] Comment on above: Result Comment: LDL Guidelines: <100 Desirable 100-129 Near to/above Desirable 130-159 Borderline >159 UndesirableDirect (measured) LDL and calculated LDL are not interchangeable tests. Performed By: #### L IPR ####[facility] [facility] [place] [address] Triglyceride 113 mg/dL Normal <150 [facility] Comment on above: Result Comment: Trig lyceride Guidelines: <150 Desirable 150- 199 Borderline 200-499 High >499 Very high Based on AHA Guidelines for fasting triglyceride, June 2012.Performed at [facility] [address] [facility] [place] [address] Performed By: #### L IPR ####[facility] [facility] [place] [address] Cholesterol in VLDL mass conc NOT REPORTED Normal 10-16 [facility] Comment on above: Performed By: #### L IPR ####[facility] [facility] [place] [address] Vital Signs Date Time Vital Sign Value Performing Clinician Facility 04-09-2025 10:03-0400 Body weight 83.12 kg Jody UREÑA Work Phone: [facility] 04-09-2025 10:03-0400 Diastolic blood pressure 64 mm[Hg] Jody UREÑA Work Phone: [facility] 04-09-2025 10:03-0400 Systolic blood pressure 112 mm[Hg] Jody UREÑA Work Phone: [facility] 03-11-2025 11:13-0400 Body weight 81.56 kg Yousif Markus DO Work Phone: [facility] 03-11-2025 11:13-0400 Diastolic blood pressure 70 mm[Hg] Yousif Markus DO Work Phone: [facility] 03-11-2025 11:13-0400 Systolic blood pressure 120 mm[Hg] Yousif Markus DO Work Phone: [facility] 01-19-2025 14:18-0400 Body weight 71.67 kg Yousif Markus DO Work Phone: [facility] 01-19-2025 14:18-0400 Diastolic blood pressure 70 mm[Hg] Yousif Markus DO Work Phone: [facility] 01-19-2025 14:18-0400 Systolic blood pressure 112 mm[Hg] Yousif Markus DO Work Phone: [facility] 01-01-2025 15:12-0400 Body weight 70.36 kg Noms Nurse [facility] 01-01-2025 15:12-0400 Diastolic blood pressure 64 mm[Hg] [facility] Nurse [facility] 01-01-2025 15:12-0400 Systolic blood pressure 110 mm[Hg] Nom Nurse [facility] 10-21-2024 07:30-0500 Body temperature 97.7 [degF] PHYSICIAN NO [facility] 10-21-2024 07:30-0500 Diastolic blood pressure 77 mm[Hg] PHYSICIAN NO [facility] 10-21-2024 07:30-0500 Heart rate 85 /min PHYSICIAN NO [facility] 10-21-2024 07:30-0500 Respiratory rate 16 /min PHYSICIAN NO [facility] 10-21-2024 07:30-0500 SaO2% (BldA) [Mass fraction] 98 % PHYSICIAN NO [facility] 10-21-2024 07:30-0500 Systolic blood pressure 120 mm[Hg] PHYSICIAN NO [facility] 10-20-2024 14:43-0500 Body height 167.64 cm PHYSICIAN NO [facility] 10-20-2024 09:00-0500 Body weight 56.2 kg PHYSICIAN NO [facility] 10-17-2024 17:00-0500 Diastolic blood pressure 70 mm[Hg] Rochelle Alvarado MD Work Phone: [facility] 10-17-2024 17:00-0500 Heart rate 81 /min Rochelle Alvarado MD Work Phone: [facility] 10-17-2024 17:00-0500 Respiratory rate 16 /min Rochelle Alvarado MD Work Phone: [facility] 10-17-2024 17:00-0500 SaO2% (BldA) [Mass fraction] 100 % Rochelle Alvarado MD Work Phone: [facility] 10-17-2024 17:00-0500 Systolic blood pressure 115 mm[Hg] Rochelle Alvarado MD Work Phone: [facility] 10-17-2024 12:00-0500 Body temperature 95.7 [degF] Rochelle Alvarado MD Work Phone: [facility] 10-17-2024 06:00-0500 Body weight 56.2 kg Rochelle Alvarado MD Work Phone: [facility] 10-16-2024 16:30-0500 Body height 170.18 cm Rochelle Alvarado MD Work Phone: [facility] 10-15-2024 20:45-0500 Diastolic blood pressure 89 mm[Hg] [facility] 10-15-2024 20:45-0500 Heart rate 101 /min [facility] 10-15-2024 20:45-0500 Mean blood pressure 102 mm[Hg] [facility] 10-15-2024 20:45-0500 Respiratory rate 14 /min [facility] 10-15-2024 20:45-0500 Systolic blood pressure 127 mm[Hg] [facility] 10-15-2024 20:00-0500 Heart rate 89 /min [facility] 10-15-2024 19:57-0500 Diastolic blood pressure 83 mm[Hg] [facility] 10-15-2024 19:57-0500 Heart rate 95 /min [facility] 10-15-2024 19:57-0500 Mean blood pressure 94 mm[Hg] [facility] 10-15-2024 19:57-0500 Respiratory rate 14 /min [facility] 10-15-2024 19:57-0500 SaO2% (BldA) [Mass fraction] 99 % [facility] 10-15-2024 19:57-0500 Systolic blood pressure 115 mm[Hg] [facility] 10-15-2024 19:00-0500 Diastolic blood pressure 85 mm[Hg] [facility] 10-15-2024 19:00-0500 Mean blood pressure 93 mm[Hg] [facility] 10-15-2024 19:00-0500 Systolic blood pressure 109 mm[Hg] [facility] 10-15-2024 18:30-0500 Respiratory rate 16 /min [facility] 10-15-2024 18:30-0500 SaO2% (BldA) [Mass fraction] 99 % [facility] 10-15-2024 17:02-0500 SaO2% (BldA) [Mass fraction] 99 % [facility] 10-15-2024 13:29-0500 Body temperature 97.7 [degF] [facility] 10-15-2024 13:29-0500 Heart rate 99 /min [facility] 10-15-2024 13:14-0500 Body temperature 97.7 [degF] [facility] 10-15-2024 13:14-0500 Heart rate 100 /min [facility] Encounters Encounter Date Encounter Type Care Provider Facility Start: 05-06-2025 End: 05-06-2025 Bamboo flowsheet Yousif Markus DO Work Phone: [facility] Start: 05-06-2025 End: 05-06-2025 Bamboo flowsheet Yousif Markus DO Work Phone: [facility] Start: 05-06-2025 End: 05-06-2025 ambulatory YOUSIF MARKUS Not Available Start: 04-09-2025 End: 04-09-2025 Bamboo flowsheet Jody UREÑA Work Phone: [facility] Start: 04-09-2025 End: 04-09-2025 Bamboo flowsheet Jody UREÑA Work Phone: [facility] Start: 04-09-2025 End: 04-09-2025 Office outpatient visit 15 minutes Jody UREÑA Work Phone: [facility] Comment on above: Second trimester pre gnancy ([facility] 25 weeks gestation of ([facility]) Start: 04-09-2025 End: 04-09-2025 ambulatory JODY KIMBLE Not Available Start: 04-01-2025 End: 04-01-2025 ambulatory YOUSIF MARKUS Not Available Start: 03-11-2025 End: 03-11-2025 Bamboo flowsheet Yousif Markus DO Work Phone: [facility] Start: 03-11-2025 End: 03-13-2025 Bamboo flowsheet Yousif Markus DO Work Phone: [facility] Start: 03-11-2025 End: 03-13-2025 Clinisync Result Encounter Yousif Markus DO Work Phone: [facility] External Department Unsolicited Start: 03-11-2025 End: 03-12-2025 External Result Encounter Yousif Markus DO Work Phone: [facility] External Department Unsolicited Start: 03-11-2025 End: 03-11-2025 ambulatory YOUSIF MARKUS Not Available Start: 03-11-2025 End: 03-11-2025 Patient encounter procedure Yousif Markus DO Work Phone: [facility] Healthcare Start: 03-11-2025 End: 03-11-2025 Periodic preventive med est patient 18-39 yrs Yousif Markus DO Work Phone: [facility] Comment on above: Screening, , for anatomic survey ([facility]); Well woman exam with routine gynecological exam; Exposure to STD; Vaginal discharge; 21 weeks gestation of ([facility]); Second trimester ([facility]); Nausea and vomiting, unspecified vomiting type Start: 01-19-2025 End: 01-19-2025 Office outpatient visit 15 minutes Yousif Markus DO Work Phone: [facility] Comment on above: History of gestation al diabetes (Primary Dx); Second trimester ; 13 weeks gestation of ; Urinary tract infection without hematuria, site unspecified; Diabetes mellitus screening Start: 01-19-2025 End: 01-19-2025 ambulatory YOUSIF MARKUS Not Available Start: 01-07-2025 End: 01-07-2025 Clinisync Result Encounter Yousif Markus DO Work Phone: [facility] External Department Unsolicited Start: 01-07-2025 End: 01-07-2025 Clinisync Result Encounter Yousif Markus DO Work Phone: [facility] External Department Unsolicited Start: 01-05-2025 End: 01-05-2025 Emergency department patient visit FABIAN ROWE [facility] Start: 01-01-2025 End: 01-01-2025 Office outpatient visit 5 minutes [facility] Markus Nurse [facility] Comment on above: GA: 11w1d Start: 01-01-2025 End: 01-01-2025 ambulatory YOUSIF MARKUS Not Available Start: 10-18-2024 Non-patient / Non-visit PHYSICIAN NO [facility] Work Phone: Start: 10-17-2024 End: 10-21-2024 Evaluation and management of inpatient PHYSICIAN NO [facility] Work Phone: Start: 10-16-2024 Non-patient / Non-visit Marc Alvarado MD Work Phone: [facility] Work Phone: Start: 10-15-2024 End: 10-17-2024 Evaluation and management of inpatient Rochelle Alvarado MD Work Phone: [facility] Work Phone: Start: 10-15-2024 End: 10-15-2024 Emergency department patient visit Jayjay Solo nayan [facility] Start: 07-21-2024 Registered Recurring Rochelle mansfield MD Work Phone: [facility] Start: 07-21-2024 ambulatory Rochelle Alvarado Facility: [facility] Start: 11-26-2023 End: 11-27-2023 ambulatory [facility] Start: 11-05-2023 End: 11-05-2023 ambulatory Haydee Gaytan Facility:[facility] Start: 10-30-2023 Clinisync Result Encounter Yousif Aparicio DO Work Phone: [facility] External Department Unsolicited Start: 10-30-2023 Clinisync Result Encounter Yousif Aparicio DO Work Phone: [facility] External Department Unsolicited Start: 10-29-2023 End: 10-29-2023 ambulatory MD Rochelle Alvarado Work Phone: [facility] Work Phone: Start: 10-29-2023 End: 10-29-2023 Departed Referred MD Rochelle Alvarado Work Phone: [facility] Start: 12-21-2022 End: 12-21-2022 ambulatory IVAN CAMEJO . Facility:[facility] Start: 11-29-2022 End: 11-29-[address] RODO MENCHACA Facility:[facility] Start: 10-25-2022 ambulatory [facility] Facility[facility] Start: 10-11-2022 End: 10-11-[address] CHRISTINE SÁNCHEZ Facility:[facility] Start: 09-12-2022 End: 09-13-[address] YOUSIF APARICIO . Facility:[facility] Start: 08-19-2022 Encounter for preprocedural laboratory examination DR YOUSIF APARICIO . [facility] Start: 08-18-2022 End: 08-18-[address] YOUSIF APARICIO . Facility:[facility] Start: 08-16-2022 End: 08-17-[address] YOUSIF APARICIO . Facility:[facility] Start: 08-16-2022 End: 08-17-2022 Encounter for preprocedural laboratory examination DR YOUSIF APARICIO . Facility:[facility] Start: 08-14-2022 End: 08-15-2022 ambulatory [facility] Facility[facility] Start: 07-27-2022 End: 07-28-[address] YOUSIF APARICIO . Facility:[facility] Start: 07-09-2022 End: 07-09-[address] ELISEO HARDING Facility:[facility] Start: 12-12-2021 Telephone encounter King zee MD Work Phone: Hematology/Oncology Comment on above: Lab Orders Start: 10-28-2021 Chart abstracting King fleming MD Work Phone: Hematology/Oncology Start: 04-26-2020 End: 04-26-2020 Subsequent hospital visit by physician Rochelle ALFRED Laboratory Start: 03-16-2020 End: 03-17-2020 Emergency department [facility] Start: 11-20-2019 End: 11-20-2019 Subsequent hospital visit by physician Rochelle ALFRED Laboratory Comment on above: History of miscarria ge, currently ; Amenorrhea; Positive urine test; Encounter for supervision of normal in first trimester, unspecified ; Spotting in early Start: 06-19-2019 End: 06-19-2019 Subsequent hospital visit by physician Rochelle ALFRED Laboratory Comment on above: Amenorrhea; Positive urine test; Encounter for supervision of normal in first trimester, unspecified ; Spotting in early Start: 05-09-2019 End: 05-09-2019 Subsequent hospital visit by physician Rochelle ALFRED Laboratory Start: 11-05-2017 End: 11-07-2017 Evaluation and management of inpatient ANGELO SPICER [facility] Procedures Date Procedure Procedure Detail Performing Clinician Start: 04-09-2025 Urnls dip stick/tabl et rgnt non-auto w/o micrscp Jody UREÑA Work Phone: Start: 03-11-2025 RECURRENT VAGINITIS (HTRX) Yousif Markus DO Work Phone: Start: 03-11-2025 Urnls dip stick/tabl et rgnt non-auto w/o micrscp Yousif Markus DO Work Phone: Start: 03-11-2025 IGP,APTIMA HPV,AGE GDLN Yousif Markus DO Work Phone: Start: 03-11-2025 Microscopic observat ion [Identifier] in Cervix by Cyto stain Yousif Markus DO Work Phone: Start: 01-19-2025 Urnls dip stick/tabl et rgnt non-auto w/o micrscp Yousif Markus DO Work Phone: Start: 01-07-2025 BOX TEST Yousif Fazi o DO Work Phone: Start: 01-01-2025 Urnls dip stick/tabl et rgnt non-auto w/o micrscp Yousif Markus DO Work Phone: Start: 10-16-2024 MRI of head Rochelle warren MD Work Phone: Start: 10-15-2024 Respiratory Panel (PCR) Rochelle Alvarado MD Work Phone: Start: 10-30-2023 [facility] CBC WITH PLATEL ET NO DIFFERENTIAL Yousif Balbuenao DO Work Phone: Start: 04-26-2020 Acute hepatitis panel E lambertojim Hammonder Work Phone: Start: 04-26-2020 Antibody hiv-1&hiv-2 single result Anthony Pepper Work Phone: Start: 04-26-2020 Blood count complete automated Anthonyjim Hammonder Work Phone: Start: 04-26-2020 Comprehensive metabo lic panel Anthony Hammonder Work Phone: Start: 04-26-2020 Gonadotropin chorion ic qualitative Anthonyjim Hammonder Work Phone: Start: 04-26-2020 Urinalysis microscopic only Anthony Pabon Work Phone: Start: 04-26-2020 Urnls dip stick/tabl et rgnt auto w/o microscopy Anthony Pabon Work Phone: Start: 11-20-2019 Antibody screen Rochelle Alvarado Start: 11-20-2019 Antibody hiv-1&hiv-2 single result Georgette [...] Work Phone: Start: 06-19-2019 Antibody screen Rochelle Alvarado Start: 06-19-2019 Obstetric panel Kathlee n E Pool Work Phone: Start: 06-19-2019 Gonadotropin chorion ic quantitative Georgette E Pool Work Phone: Start: 06-19-2019 Antibody hiv-1&hiv-2 single result Georgette E Pool Work Phone: Start: 06-19-2019 Blood typing serologic abo Georgette E Pool Work Phone: Start: 06-19-2019 Drug screen, qualitate/multi Georgette E Pool Work Phone: Start: 06-19-2019 Hepatitis c antibody Ka thleen E Pool Work Phone: Start: 05-09-2019 Acute hepatitis panel D awn R Destiny Work Phone: Start: 05-09-2019 Comprehensive metabo lic panel Kadi R Destiny Work Phone: Start: 11-06-2017 DISCHARGE PATIENT LUIS E SPICER Start: 11-05-2017 URINE DRUG SCREEN LUIS E BARRIOSPTA Start: 11-05-2017 NURSING COMMUNICATION S VIKA SPICER Start: 11-05-2017 Lipid panel ANGELO BARRIOS CLINICAL CYTOGENETICS DIRECTOR Start: 11-05-2017 DIET GENERAL ANGELO BARRIOS CLINICAL CYTOGENETICS DIRECTOR Start: 11-05-2017 FULL CODE ANGELO BARRIOS CLINICAL CYTOGENETICS DIRECTOR Start: 11-05-2017 IP CONSULT TO HISTOR Y AND PHYSICAL ANGELO BARRIOSPTA Start: 11-05-2017 MISCELLANEOUS NURSIN G CARE ORDER (SPECIFY) ANGELO SPICER Start: 11-05-2017 OFF UNIT PRIVILEGES DONNA SPICER Start: 11-05-2017 PATIENT STATUS (DIRECT) ANGELO SPICER Plan of Treatment Date Care Activity Detail Author Start: 03-11-2028 Screening for malign ant neoplasm of cervix [facility] Start: 05-18-2025 Influenza vaccination Influenza Vacc ine (#1) [facility] Start: 05-06-2025 End: 05-06-2025 Patient encounter procedure 05/06/2025 11:30 AM EDT Office Visit CHARBEL John OBGINAN [address] [facility] [place] [phone] Yousif Aparicio DO [address] [facility] [address] [place], [place] [address] Arrived CHARBEL John OBGINAN Comment on above: Arrived Start: 04-09-2025 End: 04-09-2025 Patient encounter procedure 04/09/2025 9:50 AM EDT Routine [facility] [address] [place] [phone] Jody Kimble, PA [address] [facility] [address] [place], [place] [address] Arrived [facility] Comment on above: Arrived Start: 04-08-2025 End: 04-08-2025 Patient encounter procedure 04/08/2025 11:20 AM EDT Routine [facility] [address] [facility] [place] [phone] Jody Kimble, PA [address] [facility] [place] [address] [facility] Start: 03-25-2025 End: 03-25-2025 Professional / ancillary services management 03/25/2025 11:00 AM EDT Ancillary Procedure [facility] [address] [facility] [place] [phone] [facility] Start: 03-11-2025 End: 04-10-2025 Alpha fetoprotein, maternal Alpha fetoprotein, maternal Lab Routine Screening, , for anatomic survey ([facility]) 21 weeks gestation of ([facility]) Second trimester ([facility]) Expected: 03/11/2025 (Approximate), Expires: 04/10/2025 [facility] Comment on above: Expected: 03/11/2025 (Approximate), Expires: 04/10/2025 Start: 03-11-2025 End: 06-11-2025 US for US OB 14+ weeks anatomy scan Imaging Routine Screening, , for anatomic survey ([facility]) Expected: 03/11/2025, Expires: 06/11/2025 [facility] Comment on above: Expected: 03/11/2025 , Expires: 06/11/2025 Start: 02-16-2025 End: 02-16-2025 Patient encounter procedure 02/16/2025 3:30 PM EDT Routine [facility] [address] [facility] [phone] Jody Kimble PA [address] [facility] [place] [address] [facility] Start: 01-19-2025 End: 01-19-2026 CBC panel - Blood by Automated count CBC Lab Routine Diabetes mellitus screening Expected: 01/19/2025 (Approximate), Expires: 01/19/2026 [facility] Work Phone: Comment on above: Expected: 01/19/2025 (Approximate), Expires: 01/19/2026 Start: 01-19-2025 End: 01-19-2026 Measurement of glucose 1 hour after glucose challenge for glucose tolerance test Glucose tolerance, 1 hour Lab Routine Diabetes mellitus screening Expected: 01/19/2025 (Approximate), Expires: 01/19/2026 [facility] Comment on above: Expected: 01/19/2025 (Approximate), Expires: 01/19/2026 Start: 01-19-2025 End: 01-19-2025 Patient encounter procedure 01/19/2025 2:00 PM EDT Routine [facility] [address] [facility] [address] Yousif Aparicio, DO [address] [facility] [place] [address] [facility] Start: 01-01-2025 End: 01-01-2026 ABO/Rh ABO/Rh Lab Routine Missed menses , unspecified gestational age Expected: 01/01/2025 (Approximate), Expires: 01/01/2026 [facility] Comment on above: Expected: 01/01/2025 (Approximate), Expires: 01/01/2026 Start: 01-01-2025 End: 01-01-2026 Blood type and Indirect antibody screen panel - Blood Type and screen Lab Routine Missed menses , unspecified gestational age Expected: 01/01/2025 (Approximate), Expires: 01/01/2026 [facility] Work Phone: Comment on above: Expected: 01/01/2025 (Approximate), Expires: 01/01/2026 Start: 01-01-2025 End: 01-01-2026 Drugs of abuse panel - Urine by Screen method Rapid drug screen, urine Lab Routine , unspecified gestational age Encounter for supervision of normal first in first trimester Expected: 01/01/2025 (Approximate), Expires: 01/01/2026 [facility] Comment on above: Expected: 01/01/2025 (Approximate), Expires: 01/01/2026 Start: 10-21-2024 [facility] Start: 10-17-2024 Hospital admission [facility] Start: 10-17-2024 [facility] Start: 10-17-2024 [facility] Start: 10-17-2024 [facility] Start: 10-16-2024 [facility] Start: 10-16-2024 Referral to Autotransfusionist [facility] Start: 10-15-2024 Referral to psychiatrist [facility] Start: 10-15-2024 Referral to neurologist [facility] Start: 10-15-2024 Hospital admission [facility] Start: 01-12-2024 Screening for malign ant neoplasm of cervix HPV/Cotest [facility] Start: 12-12-2021 End: 02-11-2022 CBC W Auto Differential panel - Blood CBC + DIFF Lab Routine Iron deficiency anemia, unspecified iron deficiency anemia type Expected: 12/12/2021, Expires: 02/11/2022 [facility] Work Phone: Comment on above: Expected: 12/12/2021 , Expires: 02/11/2022 Start: 05-18-2021 Influenza vaccination INFLUENZA (#1) [facility] Start: 06-26-2020 Cervical cancer screen Cervical canc er screen [place], [place] Comment on above: Postponed from 01/11 (Not Indicated) Start: 06-26-2020 Screening for malign ant neoplasm of cervix Cervical cancer screen [place], [place] Comment on above: Postponed from 01/11 (Not Indicated) Start: 05-18-2020 Influenza vaccination Flu vaccine (# 1) [place] Start: 11-21-2019 End: 11-21-2019 Ancillary Procedure 11/21/2019 Ancillary Procedure Obstetrics and Gynecology [facility] Start: 06-26-2019 End: 06-26-2019 Routine 06/26/2019 Routine Obstetrics and Gynecology Georgette Leung APRN - [facility]RI[facility] [address] [place] [address] [phone] [facility] Start: 05-18-2019 Influenza vaccination Flu vaccine (# 1) [place], [place] Start: 2015 Cervical cancer screen Cervical canc er screen [place], [place] Start: 2015 PAP TESTING PAP TESTING [facility] Start: 2013 DTaP/Tdap/Td vaccine (1 - Tdap) DTaP/Tdap/Td vaccine (1 - Tdap) [place] Start: 2013 Urine microalbumin profile DTAP,TDAP,TD (1 - Tdap) [facility] Start: 01-12-2012 HEPATITIS C SCREENING HEPATITIS C SC REENING [facility] Start: 01-12-2012 HIV SCREENING HIV SCREENING [facility] Start: 2009 HPV vaccine (1 - Fem larissa 3-dose series) HPV vaccine (1 - Female 3-dose series) [place], [place] Start: 2007 Varicella Vaccine (1 of 2 - 13+ 2-dose series) Varicella Vaccine (1 of 2 - 13+ 2-dose series) [place] Start: 2006 Adult depression screening assessment DEPRESSION SCREENING [facility] Start: 2005 DTaP/Tdap/Td vaccine (1 - Tdap) DTaP/Tdap/Td vaccine (1 - Tdap) [place] Start: 2005 HPV vaccine (1 - 2-d ose series) HPV vaccine (1 - 2-dose series) [place] Start: 2005 HPV vaccine (1 - Fem larissa 2-dose series) HPV vaccine (1 - Female 2-dose series) [place] Start: 01-12-2000 Pneumococcal 0-64 ye ars Vaccine (1 of 1 - PPSV23) Pneumococcal 0-64 years Vaccine (1 of 1 - PPSV23) [place] Start: 1999 COVID-19 VACCINE (1) COVID-19 VACCIN E (1) [facility] Start: 1995 Varicella vaccine (1 of 2 - 2-dose childhood series) Varicella vaccine (1 of 2 - 2-dose childhood series) [place] End: 11-20-2019 Bacteria identified Cx Nom (U) Urine Culture Microbiology Routine Amenorrhea Positive urine test Encounter for supervision of normal in first trimester, unspecified 1 Occurrences starting 11/20/2019 until 11/20/2019 [place] Comment on above: 1 Occurrences starti ng 11/20/2019 until 11/20/2019 Bacteria identified Cx Nom (U) [place] End: 06-19-2019 Bacteria identified Cx Nom (U) Urine Culture Microbiology Routine Amenorrhea Positive urine test Encounter for supervision of normal in first trimester, unspecified 1 Occurrences starting 06/19/2019 until 06/19/2019 [place] Comment on above: 1 Occurrences starti ng 06/19/2019 until 06/19/2019 Bacteria identified in Urine by Culture Urine culture Microbiology Routine Missed menses Ordered: 01/01/2025 [facility] Comment on above: Ordered: 01/01/2025 End: 11-20-2019 C.trachomatis N.gonorrhoeae DNA, Urine C.trachomatis N.gonorrhoeae DNA, Urine Microbiology Routine Amenorrhea Positive urine test Encounter for supervision of normal in first trimester, unspecified 1 Occurrences starting 11/20/2019 until 11/20/2019 [place] Comment on above: 1 Occurrences starti ng 11/20/2019 until 11/20/2019 C.trachomatis N.gonorrhoeae DNA, Urine [place] End: 06-19-2019 C.trachomatis N.gonorrhoeae DNA, Urine C.trachomatis N.gonorrhoeae DNA, Urine Microbiology Routine Amenorrhea Positive urine test Encounter for supervision of normal in first trimester, unspecified 1 Occurrences starting 06/19/2019 until 06/19/2019 [place] Comment on above: 1 Occurrences starti ng 06/19/2019 until 06/19/2019 CBC W Auto Different ial panel - Blood CBC and differential Lab Routine Missed menses , unspecified gestational age Ordered: 01/01/2025 [facility] Comment on above: Ordered: 01/01/2025 CHLAMYDIA TRACHOMATI S (GENITO/STI) CHLAMYDIA TRACHOMATIS (GENITO/STI) Lab Routine Exposure to STD Ordered: 03/11/2025 [facility] Comment on above: Ordered: 03/11/2025 Cytology Cervical or vaginal smear or scraping study Pap Smear Pathology and Cytology Routine Well woman exam with routine gynecological exam Ordered: 03/11/2025 [facility] Comment on above: Ordered: 03/11/2025 Hemoglobin A1c/Hemoglobin.total in Blood Hemoglobin A1c Lab Routine Missed menses , unspecified gestational age Ordered: 01/01/2025 [facility] Comment on above: Ordered: 01/01/2025 Hepatitis A virus antibody, IgM type [facility] Hepatitis B core antibody measurement, IgM type [facility] Hepatitis B virus surface Ag [Presence] in Serum or Plasma by Immunoassay [facility] Hepatitis B virus surface Ag [Presence] in Serum or Plasma by Immunoassay Hepatitis B surface antigen Lab Routine Missed menses , unspecified gestational age Ordered: 01/01/2025 [facility] Comment on above: Ordered: 01/01/2025 End: 04-26-2020 Hepatitis C RNA, quantitative, PCR Hepatitis C RNA, quantitative, PCR Lab Routine Once for 1 Occurrences starting 04/26/2020 until 04/26/2020 [facility] Comment on above: Once for 1 Occurrenc es starting 04/26/2020 until 04/26/2020 Hepatitis C RNA, quantitative, PCR Hepatitis C RNA, quantitative, PCR Lab Routine 04/26/2020 7:30 AM EDT [place], [place] Hepatitis C virus Ab [Presence] in Serum or Plasma by Immunoassay Hepatitis C antibody Lab Routine Missed menses , unspecified gestational age Ordered: 01/01/2025 [facility] Comment on above: Ordered: 01/01/2025 Hepatitis C virus Ig G Ab [Presence] in Serum or Plasma by Immunoassay [facility] HIV 1+2 Ab+HIV1 p24 Ag [Presence] in Serum or Plasma by Immunoassay [facility] End: 05-09-2019 HIV Screen HIV Screen Lab Routine Once for 1 Occurrences starting 05/09/2019 until 05/09/2019 [facility] Comment on above: Once for 1 Occurrenc es starting 05/09/2019 until 05/09/2019 HIV Screen HIV Screen Lab R outine 05/09/2019 2:53 PM EDT [place] HIV-1/HIV-2 antigen/antibody combination immunoassay HIV-1 and HIV-2 antibodies Lab Routine Missed menses , unspecified gestational age Ordered: 01/01/2025 [facility] Comment on above: Ordered: 01/01/2025 Homogenous nuclear A b pattern [Titer] in Serum [facility] Human papilloma viru s DNA [Presence] in Unspecified specimen by Probe with amplification HPV DNA probe, amplified Microbiology Routine Well woman exam with routine gynecological exam Ordered: 03/11/2025 [facility] Comment on above: Ordered: 03/11/2025 Neisseria gonorrhoea e DNA [Presence] in Unspecified specimen by ELMO with probe detection Neisseria gonorrhea DNA probe, direct Lab Routine Exposure to STD Ordered: 03/11/2025 [facility] Comment on above: Ordered: 03/11/2025 Nuclear Ab [Titer] i n Serum [facility] Patient Education Know your Meds [facility] Work Phone: Patient referral [facility] Work Phone: PROFILE I PROF ILE I Lab Routine Amenorrhea Positive urine test Encounter for supervision of normal in first trimester, unspecified 11/20/2019 12:26 PM [place] Reagin Ab [Presence] in Serum by RPR [facility] Reagin Ab [Presence] in Serum by RPR RPR Lab Routine Missed menses , unspecified gestational age Ordered: 01/01/2025 [facility] Comment on above: Ordered: 01/01/2025 Rubella antibody, IgG Rubella an tibody, IgG Lab Routine Missed menses , unspecified gestational age Ordered: 01/01/2025 [facility] Comment on above: Ordered: 01/01/2025 SURESWAB(R) ADVANCED VAGINITIS PLUS, TMA SURESWAB(R) ADVANCED VAGINITIS PLUS, TMA Pathology and Cytology Routine Vaginal discharge Ordered: 03/11/2025 [facility] Work Phone: Comment on above: Ordered: 03/11/2025 [facility] Payers Date Payer Category Payer Self-pay [id number] 2023 Medicaid [employer] [place] [id number] 2023-Present [address] [place] [address] [id number] 2023 Medicaid (Managed Care) [employer] [id number] 2020 Medicaid [employer] [employer] [id number] 2020-Present [phone] [place] [address] Medicaid [id number] 2020 Unknown 2016 Unknown [facility] PLAN xxxxxxxxxxxx 2016-Present [phone] [place] [address] xxxxxxxxxxxx [id number] 1994 Unknown [id number] 2.16.840.1.243424.3.579.2. 196 1994 Unknown [id number] 2.16.840.1.676618.3.579.2. 593 1994 Unknown [id number] 2.16.840.1.945512.3.579.2. 593 1994 Unknown [id number] 2.16.840.1.279414.3.579.2. 593 1994 Unknown [id number] 2.16.840.1.939281.3.579.2. 593 1994 Unknown [id number] 2.16.840.1.686388.3.579.2. 593 1994 Unknown [id number] 2.16.840.1.224058.3.579.2. 593 1994 Unknown [id number] 2.16.840.1.717908.3.579.2. 593 1994 Unknown [id number] 2.16.840.1.998546.3.579.2. 593 1994 Unknown [id number] 2.16.840.1.088149.3.579.2. 593 1994 Unknown [id number] 2.16.840.1.052764.3.579.2. 593 1994 Unknown [id number] 2.16.840.1.603926.3.579.2. 173 1994 Unknown [id number] 2.16.840.1.455803.3.579.2. 727 1994 Unknown [id number] 2.16.840.1.004734.3.579.2. 727 1994 Unknown [id number] 2.16.840.1.239748.3.579.2. 727 1994 Unknown [id number] 2.16.840.1.111295.3.579.2. 727 1994 Unknown [id number] 2.16.840.1.851332.3.579.2. 727 1994 Unknown [id number] 2.16.840.1.987645.3.579.2. 1286 1994 Unknown [id number] 2.16.840.1.847948.3.579.2. 1259 1994 Unknown [id number] 2.16.840.1.737935.3.579.2. 1259 1994 Unknown [id number] 2.16.840.1.334115.3.579.2. 1259 1994 Unknown [id number] 2.16.840.1.023091.3.579.2. 1259 1994 Unknown [id number] 2.16.840.1.275447.3.579.2. 1259 1994 Unknown [id number] 2.16.840.1.521076.3.579.2. 1259 1994 Unknown [id number] 2.16.840.1.135839.3.579.2. 1259 1959 Unknown [id number] Unknown Other1 (STD) [id number] Unknown [id number] 2.16.840.1.757265.3.579.2. 531 Unknown [id number] 2.16.840.1.469751.3.579.2. 531 Unknown [id number] 2.16.840.1.134162.3.579.2. 531 Social History Date Type Detail Facility Start: 11-05-2017 End: 05-02-2023 Tobacco smoking status NHIS Never smoker [facility] Start: 11-05-2017 End: 03-18-2025 Alcohol intake No [facility] Start: 1995 Sex Assigned At Not on file [place] Start: 06-19-2019 End: 11-20-2019 Tobacco smoking status IAIS Current every day smoker [place], [place] Start: 11-20-2019 End: 03-18-2025 Cigarettes smoked current (pack per day) - Reported [facility] Start: 11-20-2019 Alcohol intake Current non-dr wool buyer of alcohol (finding) [place] Start: 05-01-2019 [place] Start: 11-20-2019 End: 05-02-2023 Tobacco use and exposure Never used [place] Start: 10-28-2021 End: 11-08-2021 Alcohol intake Ex-drinker (finding) [facility] Start: 10-09-2023 End: 03-11-2025 Alcohol intake Lifetime non-drinker (finding) [facility] Start: 11-04-2017 Tobacco smoking stat us IAIS Ex-smoker (finding) [facility] Start: 1995 Sex Assigned At Female F [facility] Tobacco [facility] Comment on above: denies Tobacco smoking status No Smokin g Status Entered [facility] Start: 10-16-2024 End: 10-18-2024 Tobacco smoking status NHIS Unknown if ever smoked [facility] Start: 10-17-2024 End: 10-21-2024 Sex Female (finding) [facility] NEGATED: Highlighted row [facility] Goals Date Patient Goal Desired Activity /State Functional Status Date Assessment Result Facility 01-20-2025 Patient Health [facility] ionnaire 2 item (PHQ-2) [Reported] [facility] 10-21-2024 Functional status Patient at Baseline [facility] Work Phone: 10-17-2024 Functional status Patient at Baseline [facility] Work Phone: 10-15-2024 Functional Status N/A [facility] Mental Status Date Assessment Result Facility 10-21-2024 Cognitive function Cognitive Sta tus Patient at Baseline [facility] Work Phone: 10-17-2024 Cognitive function Cognitive Sta tus Patient at Baseline [facility] Work Phone: Clinical Notes 11-08-2021 to 04-09-2025 ADELITA Lim - 04/09/2025 9:50 AM Daquan Monroe LPN - 03/11/2025 10:50 AM Mike Woody NP - 01/19/2025 2:00 PM EDTMlisa Mcleod MA - 01/01/2025 2:30 PM EDT Note Date & Type Note Facility 04-09-2025 History of Presen t illness Narrative Reason for Appointment: Patient ID: Noe Duran is a 30 y.o. female who presents for Routine Visit Patient presents today for Return OB appointment. MEDICATIONS Current Outpatient Medications Medication Instructions gabapentin (NEURONTIN) 600 mg, 3 times daily lamoTRIgine (LaMICtal) 25 MG tablet TAKE 1 TABLET BY MOUTH EVERY DAY FOR 30 DAYS linaCLOtide (Linzess) 145 MCG capsule Every 24 hours linaCLOtide (LINZESS) 145 mcg, Oral, Daily before breakfast ondansetron (ZOFRAN) 4 mg, Oral, Every 6 hours PRN, Take 1 tablet by mouth every 6 hours as needed for nausea. Vit-Fe Fumarate-FA ( Vitamins) 28-0.8 MG tablet 1 tablet, Oral, Daily ALLERGIES Allergies Allergen Reactions Bupropion Other Reaction(s): Seizure PROBLEMS Active Ambulatory Problems Diagnosis Date Noted No Active Ambulatory Problems Resolved Ambulatory Problems Diagnosis Date Noted No Resolved Ambulatory Problems Past Medical History: Diagnosis Date Anxiety Bipolar disorder ([facility]) Depression Fibromyalgia Gestational diabetes ([facility]) Insomnia Irritable bowel syndrome with constipation Opioid abuse ([facility]) Tobacco user HISTORY PAST MEDICAL HISTORY SOCIAL HISTORY Past Medical History: Diagnosis Date Anxiety Bipolar disorder ([facility]) Depression Fibromyalgia Gestational diabetes ([facility]) Insomnia Irritable bowel syndrome with constipation Opioid abuse ([facility]) Tobacco user Social History Tobacco Use Smoking status: Never Smokeless tobacco: Never Substance Use Topics Alcohol use: Never Drug use: Never FAMILY HISTORY No family history on file. SURGICAL HISTORY Past Surgical History: Procedure Laterality Date DILATION AND CURETTAGE 08/18/2022 PAP SMEAR 08/04/2021 Normal REVIEW OF SYSTEMS Review of Systems: Review of Systems Constitutional: Negative. HENT: Negative. Eyes: Negative. Respiratory: Negative. Cardiovascular: Negative. Gastrointestinal: Negative. Genitourinary: Negative. Musculoskeletal: Negative. Skin: Negative. Neurological: Negative. All other systems reviewed and are negative. Hematological: Negative. Endocrine: Negative. Allergic/Immunologic: Negative. OBJECTIVE Objective: Physical Exam Constitutional: Appearance: Normal appearance. She is normal weight. HENT: Head: Normocephalic. Cardiovascular: Rate and Rhythm: Normal rate. Pulses: Normal pulses. Pulmonary: Effort: Pulmonary effort is normal. Breath sounds: Normal breath sounds. Abdominal: Palpations: Abdomen is soft. Musculoskeletal: General: Normal range of motion. Neurological: General: No focal deficit present. Mental Status: She is alert and oriented to person, place, and time. Psychiatric: Mood and Affect: Mood normal. Behavior: Behavior normal. Thought Content: Thought content normal. Judgment: Judgment normal. Vitals and nursing note reviewed. Vitals: There is no height or weight on file to calculate BMI. BP: 112/64 Patient's last menstrual period was 10/21/2024 (exact date). ASSESSMENT & PLAN ICD-10-CM 1. Second trimester ([facility]) Z34.92 POCT urinalysis dipstick manually resulted 2. 25 weeks gestation of ([facility]) Z3A.25 Return OB: Patient presents today for a routine obstetrics appointment. Patient is currently 25w1d . Patient states she is doing well but has complaints of being tired due to current . Patient has verbalizes frequent movement. labor precautions was discussed/given and patient was instructed to perform kick counts three times a day. Orders Placed This Encounter Procedures POCT urinalysis dipstick manually resulted Follow Up: Patient is to return to office in 3 week for routine OB appointment. Documented by ADELITA Lim on behalf of: ADELITA Lim documented in this encounter [facility] 03-11-2025 History of Presen t illness Narrative Reason for Appointment: Patient ID: Noe Duran is a 30 y.o. female who presents for Routine Visit and Well Women Visit Patient presents today for Annual Exam., STD Check., and Return OB appointment. MEDICATIONS Current Outpatient Medications Medication Instructions gabapentin (NEURONTIN) 600 mg, 3 times daily lamoTRIgine (LaMICtal) 25 MG tablet TAKE 1 TABLET BY MOUTH EVERY DAY FOR 30 DAYS linaCLOtide (Linzess) 145 MCG capsule Every 24 hours linaCLOtide (LINZESS) 145 mcg, Oral, Daily before breakfast Vit-Fe Fumarate-FA ( Vitamins) 28-0.8 MG tablet 1 tablet, Oral, Daily ALLERGIES Allergies Allergen Reactions Bupropion Other Reaction(s): Seizure PROBLEMS Active Ambulatory Problems Diagnosis Date Noted No Active Ambulatory Problems Resolved Ambulatory Problems Diagnosis Date Noted No Resolved Ambulatory Problems Past Medical History: Diagnosis Date Anxiety Bipolar disorder ([facility]) Depression Fibromyalgia Gestational diabetes ([facility]) Insomnia Irritable bowel syndrome with constipation Opioid abuse ([facility]) Tobacco user HISTORY PAST MEDICAL HISTORY SOCIAL HISTORY Past Medical History: Diagnosis Date Anxiety Bipolar disorder (HCC) Depression Fibromyalgia Gestational diabetes ([facility]) Insomnia Irritable bowel syndrome with constipation Opioid abuse ([facility]) Tobacco user Social History Tobacco Use Smoking status: Never Smokeless tobacco: Never Substance Use Topics Alcohol use: Never Drug use: Never FAMILY HISTORY No family history on file. SURGICAL HISTORY Past Surgical History: Procedure Laterality Date DILATION AND CURETTAGE 08/18/2022 PAP SMEAR 08/04/2021 Normal REVIEW OF SYSTEMS Review of Systems: Review of Systems Constitutional: Negative. HENT: Negative. Eyes: Negative. Respiratory: Negative. Cardiovascular: Negative. Gastrointestinal: Negative. Genitourinary: Negative. Musculoskeletal: Negative. Skin: Negative. Neurological: Negative. All other systems reviewed and are negative. Hematological: Negative. Endocrine: Negative. Allergic/Immunologic: Negative. OBJECTIVE Objective: Physical Exam Constitutional: Appearance: Normal appearance. She is well-developed. Genitourinary: Vulva normal. Breasts: Breasts are soft. Right: Normal. Left: Normal. Cardiovascular: Rate and Rhythm: Normal rate and regular rhythm. Pulmonary: Effort: Pulmonary effort is normal. Breath sounds: Normal breath sounds. Abdominal: General: Bowel sounds are normal. There is no distension. Palpations: Abdomen is soft. Tenderness: There is no abdominal tenderness. There is no guarding or rebound. Musculoskeletal: General: No swelling. Normal range of motion. Right lower leg: No edema. Left lower leg: No edema. Neurological: Mental Status: She is alert and oriented to person, place, and time. Skin: General: Skin is warm and dry. Psychiatric: Mood and Affect: Mood normal. Behavior: Behavior normal. Vitals and nursing note reviewed. Exam conducted with a occupational therapist assistant present. Vitals: There is no height or weight on file to calculate BMI. BP: 120/70 Patient's last menstrual period was 10/21/2024 (exact date). ASSESSMENT & PLAN ICD-10-CM 1. Screening, , for anatomic survey ([facility]) Z36.89 US OB 14+ weeks anatomy scan Alpha fetoprotein, maternal US OB 14+ weeks anatomy scan Alpha fetoprotein, maternal 2. Well woman exam with routine gynecological exam Z01.419 Pap Smear HPV DNA probe, amplified 3. Exposure to STD Z20.2 CHLAMYDIA TRACHOMATIS (GENITO/STI) Neisseria gonorrhea DNA probe, direct 4. Vaginal discharge N89.8 SURESWAB(R) ADVANCED VAGINITIS PLUS, TMA 5. 21 weeks gestation of ([facility]) Z3A.21 POCT urinalysis dipstick manually resulted Alpha fetoprotein, maternal Alpha fetoprotein, maternal 6. Second trimester ([facility]) Z34.92 POCT urinalysis dipstick manually resulted Alpha fetoprotein, maternal Alpha fetoprotein, maternal Return OB/Annual Exam: Patient presents today for a annual exam/routine obstetrics appointment. Patient is currently 21w0d . Patient states she is doing well but has complaints of nausea in the morning. Pap and cultures was obtained without difficulty and patient was given orders for anatomy scan and msAFP to be obtained. Orders Placed This Encounter Procedures HPV DNA probe, amplified US OB 14+ weeks anatomy scan CHLAMYDIA TRACHOMATIS (GENITO/STI) Neisseria gonorrhea DNA probe, direct Alpha fetoprotein, maternal POCT urinalysis dipstick manually resulted Follow Up: Patient is to schedule annual exam for next year and return to office in 4 weeks for OB appointment. Documented by Rajani Monroe LPN on behalf of: Yousif Aparicio DO documented in this encounter [facility] 01-19-2025 History of Presen t illness Narrative Reason for Appointment: Patient ID: Noe Duran is a 30 y.o. female who presents for Routine Visit Patient presents today for Return OB appointment. MEDICATIONS Current Outpatient Medications Medication Instructions gabapentin (NEURONTIN) 600 mg, Oral, 3 times daily lamoTRIgine (LaMICtal) 25 MG tablet TAKE 1 TABLET BY MOUTH EVERY DAY FOR 30 DAYS linaCLOtide (Linzess) 145 MCG capsule Every 24 hours linaCLOtide (LINZESS) 145 mcg, Oral, Daily before breakfast nitrofurantoin (macrocrystal-monohydrate) (MACROBID) 100 mg, Oral, 2 times daily ondansetron ODT (ZOFRAN-ODT) 4 mg, Oral, Every 6 hours PRN Vit-Fe Fumarate-FA ( Vitamins) 28-0.8 MG tablet 1 tablet, Oral, Daily propranolol (Inderal) 20 MG tablet ALLERGIES Allergies Allergen Reactions Bupropion Other Reaction(s): Seizure PROBLEMS Active Ambulatory Problems Diagnosis Date Noted No Active Ambulatory Problems Resolved Ambulatory Problems Diagnosis Date Noted No Resolved Ambulatory Problems Past Medical History: Diagnosis Date Anxiety Bipolar disorder Depression (CMS/HCC) Fibromyalgia Gestational diabetes Insomnia Irritable bowel syndrome with constipation Opioid abuse Tobacco user HISTORY PAST MEDICAL HISTORY SOCIAL HISTORY Past Medical History: Diagnosis Date Anxiety Bipolar disorder Depression (CMS/HCC) Fibromyalgia Gestational diabetes Insomnia Irritable bowel syndrome with constipation Opioid abuse Tobacco user Social History Tobacco Use Smoking status: Never Smokeless tobacco: Never Substance Use Topics Alcohol use: Never Drug use: Never FAMILY HISTORY No family history on file. SURGICAL HISTORY Past Surgical History: Procedure Laterality Date DILATION AND CURETTAGE 08/18/2022 PAP SMEAR 08/04/2021 Normal REVIEW OF SYSTEMS Review of Systems: Review of Systems Constitutional: Negative. HENT: Negative. Eyes: Negative. Respiratory: Negative. Cardiovascular: Negative. Gastrointestinal: Negative. Genitourinary: Negative. Musculoskeletal: Negative. Skin: Negative. Neurological: Negative. All other systems reviewed and are negative. Hematological: Negative. Endocrine: Negative. Allergic/Immunologic: Negative. OBJECTIVE Objective: Physical Exam Constitutional: Appearance: Normal appearance. She is well-developed. Cardiovascular: Rate and Rhythm: Normal rate and regular rhythm. Pulmonary: Effort: Pulmonary effort is normal. Breath sounds: Normal breath sounds. Abdominal: General: Bowel sounds are normal. There is no distension. Palpations: Abdomen is soft. Tenderness: There is no abdominal tenderness. There is no guarding or rebound. Musculoskeletal: General: No swelling. Normal range of motion. Right lower leg: No edema. Left lower leg: No edema. Neurological: Mental Status: She is alert and oriented to person, place, and time. Skin: General: Skin is warm and dry. Psychiatric: Mood and Affect: Mood normal. Behavior: Behavior normal. Vitals and nursing note reviewed. Exam conducted with a occupational therapist assistant present. Vitals: There is no height or weight on file to calculate BMI. BP: 112/70 Patient's last menstrual period was 10/21/2024 (exact date). ASSESSMENT & PLAN ICD-10-CM 1. Second trimester Z34.92 POCT urinalysis dipstick manually resulted 2. 13 weeks gestation of Z3A.13 3. Urinary tract infection without hematuria, site unspecified N39.0 nitrofurantoin, macrocrystal-monohydrate, (Macrobid) 100 MG capsule Return OB: Patient presents today for a routine obstetrics appointment. Patient is currently 13w5d . Patient states she is doing well but has complaints of being tired due to current . Patient has verbalizes frequent movement. labor precautions was discussed/given and patient was instructed to perform kick counts three times a day. Orders Placed This Encounter Procedures POCT urinalysis dipstick manually resulted Follow Up: Patient is to return to office in 4 week for routine OB appointment. Documented by Violet Woody NP on behalf of: Yousif Aparicio DO documented in this encounter [facility] 01-01-2025 History of Presen t illness Narrative Reason for Appointment: Patient ID: Noe Duran is a 29 y.o. female who presents for Amenorrhea Patient presents today for a Nurse OB Intake appointment. Patient is 11w1d with a Estimated Date of Delivery: 07/22/25 OB History Para Term AB Living 6 4 4 1 1 SAB IAB Ectopic Multiple Live Births 1 4 # Outcome Date GA Lbr Juarez/2nd Weight Sex Type Anes PTL Lv 6 Current 5 Term 10/29/23 38w1d M Vag-Spont None DEE 4 Term 12/06/21 F Vag-Spont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
[2025-05-08 10:00] LABS: Glucose 1 Hour 121 mg/dL (<130); Hematocrit 26.9 % (36.0-48.0); Hemoglobin 8.3 g/dL (12.0-16.0); Immature Granulocytes Abs Auto 0.04 10^3/uL (0.00-0.03); Immature Granulocytes Pct Auto 0.4 % (0.0-0.5); Lymphocytes Absolute Auto 1.0 10^3/uL (1.2-3.8); Mean Corpuscular HGB Conc 30.9 g/dL (29.9-35.2); Mean Corpuscular Hemoglobin 23.0 pg (26.7-34.0); Mean Corpuscular Volume 74.5 fL (81.0-99.0); Platelet Count 226 10^3/uL (150-450); Red Blood Count 3.61 10^6/uL (4.20-5.40); White Blood Count 9.0 10^3/uL (4.0-11.0)
== END 2025-05-08 08:37 | disposition home or self-care (01) ==
LOC: LAB 08:36
PROVIDERS: Visit Provider Nurse Practitioner Family
DX: Z13.1 Encounter for screening for diabetes mellitus (principal); E61.1 Iron deficiency; R42 Dizziness and giddiness
CPT/HCPCS: 36415; 82950; 85025

== ENCOUNTER 2025-05-08 08:43 | Outpatient (OUT) | payer OTHER, SELFPAY ==
--- OUTSIDE RECORDS SUMMARY | 2025-05-08 08:52 | XMS_ITS | CCD ---
Author Organization [facility] Care Team Providers Care Oncology Rep Name Role Phone SPICER, ANGELO Unavailable Unavailable SPICER, ANGELO Unavailable Unavailable ROCHELLE ALVARADO Unavailable Unavailable Rochelle Alvarado Primary Care Provider Lima Cornell Attending Unavailab Rochelle Quiñones Primary Care Provider [phone] Unavailable Primary Care Provider UnavailRodo Carson Primary [...] MARKUS ., DR MENENDEZ Consulting Unavailable FAMILY, [facility] Primary Care Unavaila ble MARKUS ., DR MENENDEZ Attending Unavailable MARKUS ., DR MENENDEZ Admitting Unavailable NGOC KWONG Consulting Unavailable RUSLAN LAM Consulting Unavailable [facility] Primary Care Unavaila ble MARKUS ., DR MENENDEZ Consulting Unavailable MARKUS ., DR MENENDEZ Attending Unavailable MARKUS ., DR MENENDEZ Admitting Unavailable ZIEBER, DR CHRISTINE Benites Consulting Unavailable MARKUS ., DR MENENDEZ Consulting Unavailable [facility] Primary Care Unavaila ble MARKUS ., DR MENENDEZ Attending Unavailable MARKUS ., DR MENENDEZ Admitting Unavailable MARKUS ., DR MENENDEZ Consulting Unavailable DESTINY KADI R Primary Care Unavailable MARKUS ., DR MENENDEZ Attending Unavailable MARKUS ., DR MENENDEZ Admitting Unavailable ZIEBER, DR CHRISTINE Benites Consulting Unavailable Unavailable Primary Care Provider UnavailMD Rochelle Carpio Primary Care Provider [phone] Yousif Aparicio Attending Provider ANTHONY PABON Referring Unavailable ROCHELLE ALVARADO Primary Care Unavailable NONE, XXXX Primary Care Physician Unavailab Jayjay Little Attending Unavailable Haydee Gaytan Attending Unavailable Rochelle Alvarado MD Primary Care Provider [phone] Dane Erwin MD Attending Provider [phone] NO FAMILY, PHYSICIAN Primary Care Provider Unava ilable Elfego Muniz MD Admit Provider Leola Smith MD Attending Provider Christine Talamantes MD Other Provider Dane Erwin MD Other Provider Jayjay Freire Attending Unavailable Dane Erwin MD Admit Provider Dane Erwin MD Attending Provider NO FAMILY, PHYSICIAN Primary Care Unavailable Christine [...] Propensity to adverse reactions to drug (disorder) [facility] Repository (11 sources) buPROPion Drug Allergy 5 [...] Start: 09-22-2019 take 1 capsule by mo 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; Translations: [OTH ARCHITECTURE INTERN CURRENT DRUG THERAPY] Onset: 12-25-2022 Episodic Other [...] (4 sources) Other specified postprocedural states; Translations: [[facility] SPECIFIED POSTPROCEDURAL STATES] Onset: 09-12-2022 Episodic Residual [...] UA Negative Negative - 4(70) +++ mg/dL [facility] Blood, UA Negative Negative - 50 Chriss/mcL [facility] Clarity, UA Clear [facility] Color, UA Yellow [facility] Glucose, UA Negative Negative - 2000(110) ++++ mg/dL [facility] Interpretation and review of laboratory results Abnormal [facility] Ketones, UA Negative Negative - 160(16) ++++ mg/dL [facility] Leukocytes, UA Negative Negative - 500+++ Leila/mcL [facility] Nitrite, UA Negative Negative - Positive [facility] pH, UA 8 5 - 9 [facility] Protein, UA Trace Negative - 1999(20) ++++ mg/dL [facility] Spec Grav, UA 1.01 1 - 1.03 [facility] Urobilinogen, UA 0.2 0.2 - 12 mg/dL [facility] IGP,APTIMA HPV,AGE GDLNon -2024 AGE GDLN ACOG TESTING Note . [facility] Comment on above: TESTS RESULT FLAG UN ITS REF RANGE LAB Clinician Provided Cytology Information Source.............[employer] Other.............. No. of containers..01 ThinPrep Vial Age Algo ACOG Keira... 30-65 01 FLAG LEGEND: L-Low Normal,H-High Normal,LL-Alert Low,HH-Alert High <-Panic Low,>-Panic High,A-Abnormal,AA-Critical Abnormal Performed at: 01 =G [facility] [address] Jesi Kuhn MD, HPV APTIMA Negative Negative [facility] Comment on above: This nucleic acid am plification test detects fourteen high- risk HPV types (16,18,31,33,35,39,45,51,52,56,58,59,66,68) without differentiation. Performed at: =G - [facility] [id number] Anesthetic Assistant: Jesi Kuhn MD, Phone: [phone] Performed at: - [facility], [place] [id number] Anesthetic Assistant: Jesi Kuhn MD, Phone: [phone] IGP, APTIMA HPV, RFX 16/18,45 Note . [facility] Comment on above: TESTS RESULT FLAG U NITS REF RANGE LAB DIAGNOSIS: 02 NEGATIVE FOR INTRAEPITHELIAL LESION OR MALIGNANCY. Specimen adequacy: 02 Satisfactory for evaluation. No endocervical component is identified. Performed by: Leonardo Almazan, Dye Lab Technician . 02 Note: Note 02 The Pap [...] Low,>-Panic High,A-Abnormal,AA-Critical Abnormal Performed at: [address] [facility] [address] [place] [address] Jesi Kuhn MD, SPATULA-ALONE [facility] RECURRENT VAGINITIS (HTRX)on 03-12-2025 ATOPOBIUM VAGINAE 0 [facility] ATOPOBIUM VAGINAE Not detected [facility] BVAB 2,3 (BACTERIAL VAGINOSIS ASSOCIATED BACTERIA 2, 3); MOBILUNCUS SPP 0 [facility] BVAB 2,3 (BACTERIAL VAGINOSIS ASSOCIATED BACTERIA 2, 3); MOBILUNCUS SPP Not detected [facility] TIMOTHY ALBICANS, PARAPSILOSIS, TROPICALIS 0 [facility] TIMOTHY ALBICANS, PARAPSILOSIS, TROPICALIS Not detected [facility] TIMOTHY GLABRATA 0 [facility] TIMOTHY GLABRATA Not detected [facility] TIMOTHY KRUSEI 0 [facility] TIMOTHY KRUSEI Not detected [facility] CHLAMYDIA TRACHOMATIS 0 [facility] CHLAMYDIA TRACHOMATIS Not detected [facility] GARDNERELLA VAGINALIS 0 [facility] S [facility] GARDNERELLA VAGINALIS Not detected N S [facility] MEGASPHAERA (TYPES 1, 2) [facility] MEGAS[facility] (TYPES 1, 2) Not detected [facility] MYCOPLASMA GENITALIUM 0 [facility] S Healthcare MYCOPLASMA GENITALIUM Not detected N [facility] NEISSERIA GONORRHOEAE 0 [facility] Healthcare NEISSERIA GONORRHOEAE Not detected N S Healthcare TRICHOMONAS VAGINALIS 0 [facility] Healthcare TRICHOMONAS VAGINALIS Not detected [facility] US OB 14+ WEEKS ANATOMY SCAN [...] UA Negative Negative - 4(70) +++ mg/dL [facility] Blood, UA Negative Negative - 50 Chriss/mcL [facility] Clarity, UA Clear [facility] Color, UA Yellow [facility] Glucose, UA Negative Negative - 1999(110) ++++ mg/dL [facility] Interpretation and review of laboratory results Normal [facility] Ketones, UA Negative Negative - 160(16) ++++ mg/dL [facility] Leukocytes, UA Negative Negative - 500+++ Leila/mcL [facility] Nitrite, UA Negative Negative - Positive [facility] pH, UA 8.5 5 - 9 [facility] Protein, UA Negative Negative - 1999(20) ++++ mg/dL [facility] Spec Grav, UA 1.02 1 - 1.03 [facility] Urobilinogen, UA 0.2 0.2 - 12 mg/dL [facility] Urinalysis macro (dipstick) panel (U)on 01-19-2025 Bilirubin, UA Negative Negative - 4(70) +++ mg/dL [facility] Blood, UA Positive Negative - 50 Chriss/mcL [facility] Comment on above: large Clarity, UA Cloudy [facility] Color, UA Yellow [facility] Glucose, UA Negative Negative - 1999(110) ++++ mg/dL [facility] Interpretation and review of laboratory results Abnormal [facility] Ketones, UA Negative Negative - 160(16) ++++ mg/dL [facility] Leukocytes, UA Trace Negative - 500+++ Leila/mcL [facility] Nitrite, UA Negative Negative - Positive [facility] pH, UA 7.5 5 - 9 [facility] Protein, UA Trace Negative - 1999(20) ++++ mg/dL [facility] Spec Grav, UA 1.02 1 - 1.03 [facility] Urobilinogen, UA 1.0 0.2 - 12 mg/dL [facility] BOX TESTon 01-07-2025 BOX TEST SENT OUT JB [facility] BOX1 JB [facility] BOX2 01/07/2025 [facility] HCG ( test) Ql (U)o n 01-01-2025 Preg Test, Ur Positive Negative [facility] No Panel Informationon 01-01 Interpretation and review of laboratory results Abnormal [facility] US OB TRANSVAGINALon 025 US OB [...] II, MD, PHD at 08-Jan-2025 02:06:49 PM [facility] Normal Not Available Comment on above: Order Comment: US OB TRANSVAGINAL No LMP recorded. Urinalysis macro (dipstick) panel (U)on 01-01-2025 Bilirubin, UA Negative Negative - 4(70) +++ mg/dL [facility] Blood, UA Negative Negative - 50 Chriss/mcL [facility] Clarity, UA Clear [facility] Color, UA Yellow [facility] Glucose, UA Negative Negative - 1999(110) ++++ mg/dL [facility] Ketones, UA Negative Negative - 160(16) ++++ mg/dL [facility] Leukocytes, UA Trace Negative - 500+++ Leila/mcL [facility] Nitrite, UA Negative Negative - Positive [facility] pH, UA 7 5 - 9 [facility] Protein, UA Negative Negative - 1999(20) ++++ mg/dL [facility] Spec Grav, UA 1.02 1 - 1.03 [facility] Urobilinogen, UA 0.2 0.2 - 12 mg/dL [facility] Alanine aminotransferase [En zymatic activity/volume] in Serum or PlasmaOrdered By: Dane Erwin on 10-19-2024 ALT [Catalytic activity/Vol] Alanine aminotransferase [Enzymatic activity/volume] in Serum or Plasma High 7-52 [facility] Albumin [Mass/volume] in Ser um or Plasma by Bromocresol green (BCG) dye binding methoOrdered By: Dane Erwin on 10-19-2024 Albumin BCG dye [Mass/Vol] Albumin [Mass/volume] in Serum or Plasma by Bromocresol green (BCG) dye binding metho 3.5-5.7 [facility] Alkaline phosphatase [Enzyma tic activity/volume] in Serum or PlasmaOrdered By: Dane Erwin on 10-19-2024 ALP [Catalytic activity/Vol] Alkaline phosphatase [Enzymatic activity/volume] in Serum or Plasma High 34-104 [facility] Aspartate aminotransferase [ Enzymatic activity/volume] in Serum or PlasmaOrdered By: Dane Erwin on 10-19-2024 AST [Catalytic activity/Vol] Aspartate aminotransferase [Enzymatic activity/volume] in Serum or Plasma 13-39 [facility] Bilirubin.total [Mass/volume ] in Serum or PlasmaOrdered By: Dane Erwin on 10-19-2024 Bilirubin [Mass/Vol] Bilirubin.total [Mass/volume] in Serum or Plasma 0.3-1.0 [facility] Calcium [Mass/volume] in Ser um or PlasmaOrdered By: Dane Erwin on 10-19-2024 Calcium [Mass/Vol] Calcium [Mass/volume ] in Serum or Plasma 8.6-10.3 [facility] Carbon dioxide, total [Moles /volume] in Serum or PlasmaOrdered By: Dane Erwin on 10-19-2024 CO2 [Moles/Vol] Carbon dioxide, tota l [Moles/volume] in Serum or Plasma High 21.0-31.0 [facility] Chloride [Moles/volume] in S lizette or PlasmaOrdered By: Dane Erwin on 10-19-2024 Chloride [Moles/Vol] Chloride [Moles/vol ume] in Serum or Plasma 98-107 [facility] Comprehensive Metabolic Pane perez 10-19-2024 Albumin [Mass/Vol] 4.0 g/dL Normal 3.5-5.7 [facility] Comment on above: Performed By: #### C MP #### [address] Albumin/Globulin [Mass ratio] 1.7 {ratio} Normal [facility] Comment on above: Performed By: #### C MP #### [address] ALP [Catalytic activity/Vol] 117 U/L High 34-104 [facility] Comment on above: Performed By: #### C MP #### [facility] [address] [place] [address] [place] ALT [Catalytic activity/Vol] 131 U/L High 7-52 [facility] Comment on above: Performed By: #### C MP #### [address] Anion gap [Moles/Vol] 9.1 mmol/L Normal 6.0-15.0 [facility] Comment on above: Performed By: #### C MP #### [place] [address] [place] AST [Catalytic activity/Vol] 34 U/L Normal 13-39 [facility] Comment on above: Performed By: #### C MP #### [address] Bilirubin [Mass/Vol] 0.5 mg/dL Normal 0.3-1.0 [facility] Comment on above: Performed By: #### C MP #### [address] Calcium [Mass/Vol] 9.8 mg/dL Normal 8.6-10.3 [facility] Comment on above: Performed By: #### C MP #### [address] Chloride [Moles/Vol] 101 mmol/L Normal 98-107 [facility] Comment on above: Performed By: #### C MP #### [address] CO2 [Moles/Vol] 33.1 mmol/L High 21.0-31.0 [facility] Comment on above: Performed By: #### C MP #### [address] Creatinine [Mass/Vol] 0.74 mg/dL Normal 0.60-1.20 [facility] Comment on above: Performed By: #### C MP #### [address] Creatinine Clr Calc Pharmacy 98.70 Normal [facility] Comment on above: Result Comment: PERF ORMED BY: [place] [address] PATHOLOGIST SENIOR WINDOWS ADMINISTRATOR MARQUITA BOLAÑOS M.D. Performed By: #### C MP #### [place] [address] [place] GFR/1.73 sq M.predicted MDRD (S/P/Bld) [Vol rate/Area] mL/min/{1.73_m2} Normal [facility] Comment on above: Performed By: #### C MP #### [address] [place] [address] [place] Globulin (S) [Mass/Vol] 2.4 g/dL Normal [facility] Comment on above: Performed By: #### C MP #### [address] Glucose [Mass/Vol] 67 mg/dL Low 70-100 [facility] Comment on above: Result Comment: [facility] Glucose Reference Range is dependent on time and content of last meal. Glucose of more than 200 mg/dL in a nonstressed, ambulatory subject supports the diagnosis of Diabetes Mellitus. ADA recommended reference range Performed By: #### C MP #### [address] Potassium [Moles/Vol] 4.2 mmol/L Normal 3.5-5.1 [facility] Comment on above: Performed By: #### C MP #### [address] Protein [Mass/Vol] 6.4 g/dL Normal 6.4-8.9 [facility] Comment on above: Performed By: #### C MP #### [address] Sodium [Moles/Vol] 139 mmol/L Normal 136-145 [facility] Comment on above: Performed By: #### C MP #### [address] Urea nitrogen [Mass/Vol] 17 mg/dL Normal 7-25 [facility] Comment on above: Performed By: #### C MP #### [address] Creatinine [Mass/volume] in Serum or PlasmaOrdered By: Dane Erwin on 10-19-2024 Creatinine [Mass/Vol] Creatinine [Mass/v olume] in Serum or Plasma 0.60-1.20 [facility] Globulin Calc (S) [Mass/Vol] Ordered By: Dane Erwin on 10-19-2024 Globulin (S) [Mass/Vol] Serum globulin measurement by calculation (mass/volume) [facility] Glucose [Mass/volume] in Ser um or PlasmaOrdered By: Dane Erwin on 10-19-2024 Glucose [Mass/Vol] Glucose [Mass/volume ] in Serum or Plasma Low 70-100 [facility] Comment on above: ADA recommended refe rence rangeRandom Glucose Reference Range is dependent on time and content of last meal. Glucose of more than 200 mg/dL in a nonstressed, ambulatory subject supports the diagnosis of Diabetes Mellitus. No Panel InformationOrdered By: Dane Erwin on 10-19-2024 Estimated GFR (CKD-EPI) > 60.0 mL/Min [facility] Creatinine Clearance (Chem 98.70 [facility] Potassium [Moles/volume] in Serum or PlasmaOrdered By: Dane Erwin on 10-19-2024 Potassium [Moles/Vol] Potassium [Moles/v olume] in Serum or Plasma 3.5-5.1 [facility] Protein [Mass/volume] in Ser um or PlasmaOrdered By: Dane Erwin on 10-19-2024 Protein [Mass/Vol] Protein [Mass/volume ] in Serum or Plasma 6.4-8.9 [facility] Serum or plasma albumin/glob ulin mass ratioOrdered By: Dane Erwin on 10-19-2024 Albumin/Globulin [Mass ratio] Serum or plasma albumin/globulin mass ratio [facility] Serum or plasma anion gap de terminationOrdered By: Dane Erwin on 10-19-2024 Anion gap [Moles/Vol] Serum or plasma an ion gap determination 6.0-15.0 [facility] Sodium [Moles/volume] in Ser um or PlasmaOrdered By: Dane Erwin on 10-19-2024 Sodium [Moles/Vol] Sodium [Moles/volume ] in Serum or Plasma 136-145 [facility] Urea nitrogen [Mass/volume] in Serum or PlasmaOrdered By: Dane Erwin on 10-19-2024 Urea nitrogen [Mass/Vol] Urea nitrogen [Mass/volume] in Serum or Plasma 7-25 [facility] Cholesterol [Mass/volume] in Serum or PlasmaOrdered By: Dane Erwin on 10-18-2024 Cholesterol [Mass/Vol] Cholesterol [Mass /volume] in Serum or Plasma Low 140-200 [facility] Comment on above: Chol less than 200 m g/dl low riskChol 201-239 mg/dl borderline riskChol 240 mg/dl and greater high risk Cholesterol in HDL [Mass/vol ume] in Serum or PlasmaOrdered By: Dane Erwin on 10-18-2024 Cholesterol in HDL [Mass/Vol] Serum or plasma high density lipoprotein (HDL) cholesterol measurement [facility] Comment on above: HDL CHOL ATP-III CLA SSIFICATION Cardiovascular RiskHDL > or equal to 60 mg/dL LOWHDL < 40 mg/dL HIGH Cholesterol in LDL Calc [Mas s/Vol]Ordered By: Dane Erwin on 10-18-2024 Cholesterol in LDL [Mass/Vol] Cholesterol in LDL [Mass/volume] in Serum or Plasma by calculation 0-100 [facility] Comment on above: LDL ATP III CLASSIFI CATIONLDL less than 100 mg/dL OptimalLDL 100-129 mg/dL Near or above optimalLDL 130-159 mg/dL Borderline highLDL 160-189 mg/dL HighLDL greater than 189 mg/dL Very high Cholesterol in VLDL Calc [Ma ss/Vol]Ordered By: Dane Erwin on 10-18-2024 Cholesterol in VLDL [Mass/Vol] Cholesterol in VLDL [Mass/volume] in Serum or Plasma by calculation [facility] Lipid Panelon 10-18-2024 Cholesterol [Mass/Vol] 115 mg/dL Low 140-200 [facility] Comment on above: Result Comment: Chol less than 200 mg/dl low risk Chol 201-239 mg/dl borderline risk Chol 240 mg/dl and greater high risk Performed By: #### U RDS #### [address] Cholesterol in HDL [Mass/Vol] 36 mg/dL Normal [facility] Comment on above: Result Comment: HDL CHOL ATP-III CLASSIFICATION Cardiovascular Risk HDL > or equal to 60 mg/dL LOW HDL < 40 mg/dL HIGH Performed By: #### U RDS #### [address] Cholesterol.total/Chol esterol in HDL [Mass ratio] 3.2 {ratio} Normal <5.0 [facility] Comment on above: Performed By: #### U RDS #### [address] LDL Cholesterol,Calculated 55 mg/dL Normal 0-100 [facility] Comment on above: Result Comment: LDL ATP III CLASSIFICATION LDL less than 100 mg/dL Optimal LDL 100-129 mg/dL Near or above optimal LDL 130-159 mg/dL Borderline high LDL 160-189 mg/dL High LDL greater than 189 mg/dL Very high Performed By: #### U RDS #### [address] Triglyceride w/Reflex 120 mg/dL Normal 0-149 [facility] Comment on above: Result Comment: TRIG ATP III CLASSIFICATION TRIG less than 150 mg/dL Normal TRIG 150-199 mg/dL Borderline high TRIG 200-500 mg/dL High TRIG greater than 500 mg/dL Very high Standard traceable to the Center for Disease Conrtrol and Prevention (CDC) test method. Performed By: #### U RDS #### [address] VLDL CHOLESTEROL 24 mg/dL Normal [facility] Comment on above: Performed By: #### U RDS #### [address] Serum or plasma total choles terol/high density lipoprotein (HDL) cholesterol mass ratOrdered By: Dane Erwin on 10-18-2024 Cholesterol.total/Chol esterol in HDL [Mass ratio] Serum or plasma total cholesterol/high density lipoprotein (HDL) cholesterol mass rat <5.0 [facility] Thyroid Stim Hormone w/Rflxo n 10-18-2024 Thyroid Stim Hormone w/Rflx 2.83 u[iU]/mL Normal 0.45-5.33 [facility] Comment on above: Performed By: #### U RDS #### [address] [place] [address] [facility] Thyrotropin [Units/volume] i n Serum or PlasmaOrdered By: Dane Erwin on 10-18-2024 TSH Qn Thyrotropin [Units/volume] in Serum or Plasma 0.45-5.33 [facility] Triglyceride [Mass/volume] i n Serum or PlasmaOrdered By: Dane Erwin on 10-18-2024 Triglyceride [Mass/Vol] Triglyceride [Mass/volume] in Serum or Plasma 0-149 [facility] Comment on above: TRIG ATP III CLASSIF ICATIONTRIG less than 150 mg/dL NormalTRIG 150-199 mg/dL Borderline highTRIG 200-500 mg/dL High TRIG greater than 500 mg/dL Very highStandard traceable to the Center for Disease Conrtrol and Prevention (CDC) test method. Vitamin D 25 Hydroxy Totalon 10-18-2024 Vitamin D 25 Hydroxy Total 10.8 ng/mL Low 30-100 [facility] Comment on above: Result Comment: YULIA MIN D STATUS 25(OH)VITAMIN D RANGE (ng/mL) Deficient <20 Insufficient 20 to <30 Sufficient 30 to 100 Reference: Sari Taylor, Mayito SNYDER, et al. Evaluation,treatment, and prevention of vitamin D deficiency; an Endocrine Society clinical practice guideline. JCEM. 2010; 96(7):1911-30. PERFORMED BY: [place] [address] PATHOLOGIST SENIOR WINDOWS ADMINISTRATOR MARQUITA BOLAÑOS M.D. Performed By: #### U RDS #### [facility] [address] [place], [place] [id number] [facility] Vitamin D+Metabolites [Mass/ volume] in Serum or PlasmaOrdered By: Dane Erwin on 10-18-2024 Vitamin D+Metabolites [Mass/Vol] Vitamin D+Metabolites [Mass/volume] in Serum or Plasma Low 30-100 [facility] Comment on above: VITAMIN D STATUS 25( [place])VITAMIN D RANGE (ng/mL) Deficient <20 Insufficient 20 to <30Sufficient 30 to 100Reference: Sari Taylor, Mayito SNYDER, et al. Evaluation,treatment, and prevention of vitamin D deficiency; an Endocrine Society clinical practice guideline. JCEM. 2010; 96(7):1911-30. LIZBETH Antinuclear Antibodieson 10-17-2024 Antinuclear Abs, IFA Positive Critically abnormal . [facility] Comment on above: Result Comment: Nega tive <1:80 Borderline 1:80 Positive >1:80 Performed By: #### U RDS #### [address] Note 1 Comment Normal . [facility] Comment on above: Result Comment: Mojgan morgan Potential Disease Association Homogeneous Systemic Lupus Erythematosus, Drug Induced Systemic Lupus Erythematosus, Chronic Autoimmune hepatitis, Juvenile Idiopathic Arthritis Speckled Sjogren Syndrome, Systemic Lupus Erythematosus, Subacute Cutaneous Lupus, Lupus, Congenital Heart Block, Mixed Connective Tissue Disease, Scleroderma-diffuse, Scleroderma-Autoimmune Myositis Overlap Syndrome, Systemic Lupus Iwejmgvdnpimb-Hbfaarnveuo-Qslftmidkw Myositis Overlap Syndrome, Systemic Autoimmune Rheumatic Disease, [...] Cytopenias, Linear Scleroderma, Antiphospholipid Syndrome Performed at: [facility] [id number] Anesthetic Assistant: Justice Flor PhD, Phone: [phone] PERFORMED BY: [place] [address] PATHOLOGIST SENIOR WINDOWS ADMINISTRATOR MARQUITA BOLAÑOS M.D. Performed By: #### U RDS #### [address] Speckled Pattern 1 High . [facility] Comment on above: Result Comment: Dens e Fine Speckled pattern is noted. This pattern suggests the presence of DFS70 antibody which has a low prevalence in systemic autoimmune rheumatic diseases. ICAP nomenclature: AC-2,4,5,29 Performed By: #### U RDS #### [address] Alanine aminotransferase [En zymatic activity/volume] in Serum or PlasmaOrdered By: Leola Smith on 10-17-2024 ALT [Catalytic activity/Vol] Alanine aminotransferase [Enzymatic activity/volume] in Serum or Plasma High 7-52 [facility] Albumin [Mass/volume] in Ser um or Plasma by Bromocresol green (BCG) dye binding methoOrdered By: Leola Smith on 10-17-2024 Albumin BCG dye [Mass/Vol] Albumin [Mass/volume] in Serum or Plasma by Bromocresol green (BCG) dye binding metho Low 3.5-5.7 [facility] Alkaline phosphatase [Enzyma tic activity/volume] in Serum or PlasmaOrdered By: Leola Smith on 10-17-2024 ALP [Catalytic activity/Vol] Alkaline phosphatase [Enzymatic activity/volume] in Serum or Plasma High 34-104 [facility] Aspartate aminotransferase [ Enzymatic activity/volume] in Serum or PlasmaOrdered By: Leola Smith on 10-17-2024 AST [Catalytic activity/Vol] Aspartate aminotransferase [Enzymatic activity/volume] in Serum or Plasma 13-39 [facility] Basophils Auto (Bld) [#/Vol] Ordered By: Leola Smith on 10-17-2024 Basophils (Bld) [#/Vol] Automated basophil count 0.0-0.2 [facility] Basophils/100 WBC Auto (Bld) Ordered By: Leola Smith on 10-17-2024 Basophils/100 WBC (Bld) Automated basophil % . [facility] Bilirubin.total [Mass/volume ] in Serum or PlasmaOrdered By: Leola Smith on 10-17-2024 Bilirubin [Mass/Vol] Bilirubin.total [Mass/volume] in Serum or Plasma 0.3-1.0 [facility] Calcium [Mass/volume] in Ser um or PlasmaOrdered By: Leola Smith on 10-17-2024 Calcium [Mass/Vol] Calcium [Mass/volume ] in Serum or Plasma Low 8.6-10.3 [facility] Carbon dioxide, total [Moles /volume] in Serum or PlasmaOrdered By: Leola Smith on 10-17-2024 CO2 [Moles/Vol] Carbon dioxide, tota l [Moles/volume] in Serum or Plasma 21.0-31.0 [facility] Chloride [Moles/volume] in S lizette or PlasmaOrdered By: Leola Smith on 10-17-2024 Chloride [Moles/Vol] Chloride [Moles/vol ume] in Serum or Plasma High 98-107 [facility] Complete Blood Count Auto Di ffon 10-17-2024 Basophils (Bld) [#/Vol] 0.0 10*3/uL Normal 0.0-0.2 [facility] Comment on above: Result Comment: PERF ORMED BY: [place] [address] PATHOLOGIST SENIOR WINDOWS ADMINISTRATOR MARQUITA BOLAÑOS M.D. Performed By: #### C MP, CBC #### [address] Basophils/100 WBC (Bld) 0.5 % Normal . [facility] Comment on above: Performed By: #### C MP, CBC #### [address] Eosinophils (Bld) [#/Vol] 0.1 10*3/uL Normal 0.0-0.45 [facility] Comment on above: Performed By: #### C MP, CBC #### [address] Eosinophils/100 WBC (Bld) 1.2 % Normal . [facility] Comment on above: Performed By: #### C MP, CBC #### [address] Erythrocyte distribution width (RBC) [Ratio] 17.3 % High 11.9-15.3 [facility] Comment on above: Performed By: #### C MP, CBC #### [address] Hematocrit (Bld) [Volume fraction] 31.1 % Low 34.0-46.4 [facility] Comment on above: Performed By: #### C MP, CBC #### [address] Hemoglobin (Bld) [Mass/Vol] 10.4 g/dL Low 11.8-15.4 [facility] Comment on above: Performed By: #### C MP, CBC #### [place] [address] Lymphocytes (Bld) [#/Vol] 2.1 10*3/uL Normal 1.00-4.8 [facility] Comment on above: Performed By: #### C MP, CBC #### [address] Lymphocytes/100 WBC (Bld)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 Comment on above: Performed By: #### L ACT #### [facility] [address] [place] [address] Dr. Hemanth Kerr MANUAL DIFF REQ NO Normal [facility] Comment on above: Performed By: #### L ACT #### [facility] [address] [place] [address] Dr. Hemanth Kerr MCH (RBC) [Entitic mass] 27.4 pg Normal 26.7-34.0 [facility] Comment on above: Performed By: #### L ACT #### [facility] [address] [place] [address] Dr. Hemanth Kerr MCHC (RBC) [Mass/Vol] 32.2 g/dL Normal 29.9-35.2 [facility] Comment on above: Performed By: #### L ACT #### [facility] [address] [address] [address] Hemanth Kerr MCV (RBC) [Entitic vol] 85.0 fL Normal 81.0-99.0 [facility] Comment on above: Performed By: #### L ACT #### [facility] [address] [address] [address] Hemanth Kerr MONO # 0.7 103/ul Normal 0.3-0.8 [facility] Comment on above: Performed By: #### L ACT #### [facility] [address] [place] [address] Dr. Hemanth Kerr Monocytes/100 WBC (Bld) 7.3 % Normal 1.7-12.0 [facility] Comment on above: Performed By: #### L ACT #### [facility] [address] [place] [address] Dr. Hemanth Kerr NEUT # 5.7 103/ul Normal 1.4-6.5 [facility] Comment on above: Performed By: #### L ACT #### [facility] [address] [place] [address] Dr. Hemanth Kerr Neutrophils/100 WBC (Bld) 62.7 % Normal 43.0-75.0 [facility] Comment on above: Performed By: #### L ACT #### [facility] [address] [place] [address] Dr. Hemanth Kerr Platelet mean volume (Bld) [Entitic vol] 10.6 fL Normal 9.5-13.5 [facility] Comment on above: Performed By: #### L ACT #### [facility] [address] [place] [address] Dr. Hemanth Kerr PLT 347 103/ul Normal 150-450 [facility] Comment on above: Performed By: #### L ACT #### [facility] [address] [place] [address] Dr. Hemanth Kerr RBC 4.86 106/ul Normal 4.20-5.40 [facility] Comment on above: Performed By: #### L ACT #### [facility] [facility] [address], [place] [address] Dr. Hemanth Kerr WBC 9.1 103/ul Normal 4.0-11.0 [facility] Comment on above: Performed By: #### L ACT #### [facility] [address], [place] [address] CSPINE WO CONon [...] KAMILLA MILLS Date: 2022-11-28 17:54 Normal The [facility] CT HEAD WO CONon 11-28-2022 CT HEAD [...] KAMILLA MILLS Date: 2022-11-28 18:40 Normal The [facility] CULTURE BLOODon 11-28-2022 Microscopic examination of blood, culture Culture Observations: NO GROWTH AT 5 DAYS. Normal The [facility] Comment on above: Performed By: #### C BC #### [facility] [address], [place] [address] Dr. Hemanth Kerr Microscopic examination of blood, culture Culture Observations: NO GROWTH AT 5 DAYS. Normal The [facility] Comment on above: Performed By: #### B [id number] #### [facility] [address], [place] [address] Dr. Hemanth Kerr Covid-19 PCR ([facility])on 11-15 SARS-CoV-2 (COVID-19) RNA ELMO+probe Ql (Unsp spec) Not detected Normal NOT DETECTED The [facility] Comment on above: Result Comment: When diagnostic [...] for this test is supported by the [employer] of [employer] and Human Service's declaration that [...] used). Performed By: #### L ACT #### [facility] [address], [place] [address] Dr. Hemanth Kerr DRUG SCREEN RAPID (URINE)on 11-28-2022 AMP Positive Abnormal NEGATIVE [facility] Comment on above: Performed By: #### P REG #### [facility] [address] [place] [address] Dr. Hemanth Kerr BAR Negative Normal NEGATIVE The [facility] Comment on above: Performed By: #### P REG #### [facility] [address] [place] [address] Dr. Hemanth Kerr BUP Negative Normal NEGATIVE [facility] Comment on above: Performed By: #### P REG #### [facility] [address] [place] [address] Dr. Hemanth Kerr BZO Negative Normal NEGATIVE [facility] Comment on above: Performed By: #### P REG #### [facility] [address] [place] [address] Dr. Hemanth Kerr YOLANDA Negative Normal NEGATIVE [facility] Comment on above: Performed By: #### P REG #### [facility] [address] [place] [address] Dr. Hemanth Kerr CUT-OFFS SEE BELOW Normal The [facility] Comment on above: Result Comment: AMP (Amphetamine): 500ng/mL, BAR (Barbituates): 200 ng/mL, BZO (Benzodiazepines): 150 ng/mL, BUP (Buprenorphine): 10 ng/mL, YOLANDA (Cocaine): 150 ng/mL, mAMP (Methamphetamine): 500 ng/mL, MTD (Methadone): 200 ng/mL, OPI (Opiates): 100 ng/mL, OXY (Oxycodone): 100 ng/mL, PCP (Phencyclidine): 25 ng/mL, PPX (Propoxyphene): 300 ng/mL, THC (Cannabinoids): 50 ng/mL, TCA (Trycyclic Antidepressants): 300 ng/mL Performed By: #### P REG #### [facility] [address] [place] [address] Dr. Hemanth Kerr DRUG CUT HEADER DRUG CLASS TEST SYST EM CUT-OFF CONCENTRATIONS ARE FOLLOWS: Normal [facility] Comment on above: Performed By: #### P REG #### [facility] [address] [place] [address] Dr. Hemanth Kerr mAMP Positive Abnormal NEGATIVE [facility] Comment on above: Performed By: #### P REG #### [facility] [address] [address] [address] Hemanth Kerr MTD Negative Normal NEGATIVE [facility] Comment on above: Performed By: #### P REG #### [facility] [address] [place] [address] Dr. Hemanth Kerr OPI Negative Normal NEGATIVE [facility] Comment on above: Performed By: #### P REG #### [facility] [address] [place] [address] Dr. Hemanth Kerr OXY Negative Normal NEGATIVE [facility] Comment on above: Performed By: #### P REG #### [facility] [address] [place] [address] Dr. Hemanth Kerr PCP Negative Normal NEGATIVE [facility] Comment on above: Performed By: #### P REG #### [facility] [address] [place] [address] Dr. Hemanth Kerr PPX Negative Normal NEGATIVE [facility] Comment on above: Performed By: #### P REG #### [facility] [address] [place] [address] Dr. Hemanth Kerr TCA Negative Normal NEGATIVE [facility] Comment on above: Performed By: #### P REG #### [facility] [address] [place] [address] Dr. Hemanth Kerr THC Negative Normal NEGATIVE [facility] Comment on above: Performed By: #### P REG #### [facility] [address] [place] [address] Dr. Hemanth Kerr ER URINE PROFILEon 3 Bilirubin Ql (U) Negative Normal NEGATIVE [facility] Comment on above: Performed By: #### P REG #### [facility] [address] [place] [address] Dr. Hemanth Kerr Clarity (U) CLEAR Normal CLEAR [facility] Comment on above: Performed By: #### P REG #### [facility] [address] [place] [address] Dr. Hemanth Kerr Color (U) LT. YELLOW Normal YELLOW [facility] Comment on above: Performed By: #### P REG #### [facility] [address] [address] [address] Hemanth HOLMAN A micrscopic examina tion will be performed if indicated. Normal The [facility] Comment on above: Performed By: #### P REG #### [facility] [address] [place] [address] Dr. Hemanth Kerr Glucose Ql (U) Negative Normal NEGATIVE The [facility] Comment on above: Performed By: #### P REG #### [facility] [address] [address] [address] Hemanth Kerr Hemoglobin Ql (U) Negative Normal NEGATIVE The [facility] Comment on above: Performed By: #### P REG #### [facility] [address] [place] [address] Dr. Hemanth Kerr Ketones Ql (U) Negative Normal NEGATIVE [facility] Comment on above: Performed By: #### P REG #### [facility] [address] [address] [address] Hemanth Kerr LEUKOCYTES Negative Normal NEGATIVE [facility] Comment on above: Performed By: #### P REG #### [facility] [address] [place] [address] Dr. Hemanth Kerr Nitrite Ql (U) Positive Abnormal NEGATIVE [facility] Comment on above: Performed By: #### P REG #### [facility] [address] [place] [address] Dr. Hemanth Kerr pH (U) 7.5 [pH] Normal 5-9 [facility] Comment on above: Performed By: #### P REG #### [facility] [address] [place] [address] Dr. Hemanth Kerr SPEC GRAVITY 1.020 Normal 1.005-<=1.02 5 The [facility] Comment on above: Performed By: #### P REG #### [facility] [address] [place] [address] Dr. Hemanth Kerr UA PROTEIN TRACE Normal NEGATIVE/ TRACE The [facility] Comment on above: Performed By: #### P REG #### [facility] [address] [place] [address] Dr. Hemanth Kerr UR MICRO IND INDICATED Normal [facility] Comment on above: Performed By: #### P REG #### [facility] [address] [place] [address] Dr. Hemanth Kerr Urobilinogen Qn (U) 1.0 {Jose'U}/dL Normal 0.2 - 1. 0 The [facility] Comment on above: Performed By: #### P REG #### [facility] [address] [place] [address] Dr. Hemanth Kerr ETHANOL (BLD ALC)on 11-29-19 23 ALC NOTE NOTE: 80 mg/dl is th e legal limit for a blood alcohol level Normal [facility] Comment on above: Performed By: #### C MP #### [facility] [address] [place] [address] Dr. Hemanth Kerr Ethanol [Mass/Vol] mg/dL Normal The [facility] Comment on above: Performed By: #### C MP #### [facility] [address] [place] [address] Dr. Hemanth Kerr LACTATE/LACTIC ACIDon 2022 Lactate [Moles/Vol] 0.7 mmol/L Normal 0.4-2.0 [facility] Comment on above: Performed By: #### L ACT #### [facility] [address] [place] [address] Dr. Hemanth Kerr Lactate [Moles/Vol] 9.0 mmol/L Critically high 0.4-2.0 The [facility] Comment on above: Performed By: #### L ACT #### [facility] [address] [place] [address] Dr. Hemanth Kerr PH VENOUS BLOODon 11-28-2022 PCO2 VENOUS 36.6 mmHg Critically low 40.0-52.0 [facility] Comment on above: Performed By: #### P HVEN #### [facility] [address] [place] [address] Dr. Hemanth Kerr pH VENOUS 7.354 Normal 7.330-7.430 The [facility] Comment on above: Performed By: #### P HVEN #### [facility] [address] [place] [address] Dr. Hemanth Kerr POINT OF CARE GLUCOSEon 11-15 Glucose [Mass/Vol] 127 mg/dL Critically high 74-106 T [facility] Comment on above: Performed By: #### C BC #### [facility] [address] [place] [address] Dr. Hemanth Kerr PREG HCG QUALon 11-28-2022 , QUAL Negative Normal NEGATIVE [facility] Comment on above: Performed By: #### P REG #### [facility] [address] [place] [address] Dr. Hemanth Kerr PROF 14(COMP METB)on 023 Albumin [Mass/Vol] 3.7 g/dL Normal 3.4-5.0 [facility] Comment on above: Performed By: #### L ACT #### [facility] [address] [place] [address] Dr. Hemanth Kerr Albumin/Globulin [Mass ratio] 1.3 {ratio} Normal [facility] Comment on above: Performed By: #### L ACT #### [facility] [address] [place] [address] Dr. Hemanth Kerr ALP [Catalytic activity/Vol] 72 U/L Normal 46-116 [facility] Comment on above: Performed By: #### L ACT #### [facility] [address] [place] [address] Dr. Hemanth Kerr ALT [Catalytic activity/Vol] 42 U/L Normal 14-59 [facility] Comment on above: Performed By: #### L ACT #### [facility] [address] [place] [address] Dr. Hemanth Kerr Anion gap [Moles/Vol] 16.3 mmol/L Normal Th [facility] Comment on above: Performed By: #### L ACT #### [facility] [address] [place] [address] Dr. Hemanth Kerr AST [Catalytic activity/Vol] 45 U/L Critically high 15-37 [facility] Comment on above: Performed By: #### L ACT #### [facility] [address] [address] [address] Hemanth Kerr Bilirubin [Mass/Vol] 0.4 mg/dL Normal 0.2-1.0 [facility] Comment on above: Performed By: #### L ACT #### [facility] [address] [address] [address] Hemanth Kerr Calcium [Mass/Vol] 8.8 mg/dL Normal 8.5-10.1 The [facility] Comment on above: Performed By: #### L ACT #### [facility] [address] [address] [address] Hemanth Kerr Chloride [Moles/Vol] 107 mmol/L Normal 98-107 The [facility] Comment on above: Performed By: #### L ACT #### [facility] [address] [address] [address] Hemanth Kerr CO2 [Moles/Vol] 21.8 mmol/L Normal 21.0-32.0 [facility] Comment on above: Performed By: #### L ACT #### [facility] [address] [address] [address] Hemanth Kerr Creatinine [Mass/Vol] 1.32 mg/dL Critically high 0.55-1.02 [facility] Comment on above: Performed By: #### L ACT #### [facility] [address] [address] [address] Hemanth Kerr EGFR-AF MALIAN 58 mL/min/1.73m2 Critically low >=60 The [facility] Comment on above: Performed By: #### L ACT #### [facility] [address] [address] [address] Hemanth Kerr EGFR-NON AF MALIAN 48 mL/min/1.73m2 Critically low >=60 The [facility] Comment on above: Performed By: #### L ACT #### [facility] [address] [address] [address] Hemanth Kerr Globulin (S) [Mass/Vol] 2.9 g/dL Normal [facility] Comment on above: Performed By: #### L ACT #### [facility] [address] [address] [address] Hemanth Kerr Glucose [Mass/Vol] 143 mg/dL Critically high 74-106 T [facility] Comment on above: Performed By: #### L ACT #### [facility] [address] [address] [address] Hemanth Kerr Potassium [Moles/Vol] 3.1 mmol/L Critically low 3.5-5.1 [facility] Comment on above: Performed By: #### L ACT #### [facility] [address] [address] [address] Hemanth Kerr Protein [Mass/Vol] 6.6 g/dL Normal 6.4-8.2 [facility] Comment on above: Performed By: #### L ACT #### [facility] [address] [address] [address] Hemanth Kerr Sodium [Moles/Vol] 142 mmol/L Normal 136-145 [facility] Comment on above: Performed By: #### L ACT #### [facility] [address] [address] [address] Hemanth Kerr Urea nitrogen [Mass/Vol] 17.0 mg/dL Normal 7.0-18.0 [facility] Comment on above: Performed By: #### L ACT #### [facility] [address] [address] [address] Hemanth Kerr Urea nitrogen/Creatinine [Mass ratio] 12.9 mg/mg Normal [facility] Comment on above: Performed By: #### L ACT #### [facility] [address] [address] [address] Hemanth Kerr PROTIMEon 11-28-2022 INR Coag (PPP) [Relative time] 0.97 {INR} Normal [facility] Comment on above: Performed By: #### P T, PTT #### [facility] [address] [address] [address] Hemanth Kerr INR GUIDELINES SEE BELOW Normal [facility] Comment on above: Result Comment: CHAN RED INR: 2.0 - 3.0 CONDITIONS NOT LISTED BELOW 2.5 - 3.5 FOR PROSTHETIC HEART VALVE REPLACEMENT 2.5 - 3.5 RECURRENT THROMBOSIS Performed By: #### P T, PTT #### [facility] [address] [place] [address] Dr. Hemanth Kerr PT Coag (PPP) [Time] 10.3 s Normal 9.0-11.6 [facility] Comment on above: Performed By: #### P T, PTT #### [facility] [address] [place] [address] Dr. Hemanth Kerr PTTon 11-28-2022 aPTT Coag (Bld) [Time] 25.4 s Normal 22.3-36.2 Th e [facility] Comment on above: Performed By: #### P T, PTT #### [facility] [address] [place] [address] Dr. Hemanth Kerr SALICYLATEon 11-28-2022 SALICYLATE <2.8 Normal <=19.9 [facility] Comment on above: Performed By: #### C MP #### [facility] [address] [place] [address] Dr. Hemanth Kerr TROPONIN, HIGH SENSITIVITYon 11-28-2022 HSTROP 4.2 pg/mL Normal 4.0-51.3 The [facility] Comment on above: Result Comment: CUT- OFF POINTS HAVE BEEN ESTABLISHED BASED ON THE FOURTH UNIVERSAL DEFINITIONS OF MYOCARDIAL INFARCTION. THE UPPER REFERENCE LIMIT (URL) OF TROPONIN, DEFINED THE 99TH PERCENTILE OF cTnI DISTRIBUTION IN A REFERENCE POPULATION, HAS BEEN CONFIRMED THE DECISION THRESHOLD FOR [place] DIAGNOSIS. Performed By: #### C MP #### [facility] [address] [place] [address] Dr. Hemanth Kerr TSHon 11-28-2022 TSH 3.476 uIU/mL Normal 0.358-3.740 The [facility] Comment on above: Performed By: #### L ACT #### [facility] [address] [place] [address] Dr. Hemanth Kerr URINE MICROSCOPIC ONLYon BACTERIA LARGE Abnormal NONE SEEN The [facility] Comment on above: Performed By: #### P REG #### [facility] [address] [place], [place] [id number] Dr. Hemanth Kerr Bacteria identified Cx Nom (U) INDICATED Normal The [facility] Comment on above: Performed By: #### P REG #### [facility] [address] [place] [address] Dr. Hemanth Kerr CAST SEEN Abnormal NONE SEEN The [facility] Comment on above: Performed By: #### P REG #### [facility] [address] [place] [address] Dr. Hemanth Kerr COARSE GRANULAR CAST RARE Normal The [facility] Comment on above: Performed By: #### P REG #### [facility] [address] [place] [address] Dr. Hemanth Kerr Crystals LM Nom (Urine sed) NONE SEEN Normal NONE SEEN The [facility] Comment on above: Performed By: #### P REG #### [facility] [address] [place] [address] Dr. Hemanth Kerr Epithelial cells LM Ql (Urine sed) RARE Normal NONE SEEN /RARE The [facility] Comment on above: Performed By: #### P REG #### [facility] [address] [place] [address] Dr. Hemanth Kerr MUCOUS NONE SEEN Normal NONE SEEN The [facility] Comment on above: Performed By: #### P REG #### [facility] [address] [place] [address] Dr. Hemanth Kerr RBC 0-2 Normal 0-2 The [facility] Comment on above: Performed By: #### P REG #### [facility] [address] [place] [address] Dr. Hemanth Kerr WBC 2-5 Abnormal NONE SEEN The [facility] Comment on above: Performed By: #### P REG #### [facility] [address] [place] [address] Dr. Hemanth Kerr XR CHEST 1 Von [...] KAMILLA MILLS Date: 2022-11-28 17:39 Normal The [facility] CULTURE URINEon 10-13-2022 CULTURE URINE Isolate 1 [...] Trimethoprim/Sulfamethoxa zole >=320 R F Normal The [facility] Comment on above: Performed By: #### U RCX #### [facility] [address] [place] [address] Dr. Hemanth Kerr CBC AUTO DIFFon 10-11-2022 BASO # 0.0 103/ul Normal 0.0-0.1 The [facility] Comment on above: Performed By: #### C BC #### [facility] [address] [place] [address] Dr. Hemanth Kerr Basophils/100 WBC (Bld) 0.3 % Normal 0.2-2.0 The [facility] Comment on above: Performed By: #### C BC #### [facility] [address] [place] [address] Dr. Hemanth Kerr EO # 0.0 103/ul Normal 0.0-0.7 The [facility] Comment on above: Performed By: #### C BC #### [facility] [address] [place] [address] Dr. Hemanth Kerr Eosinophils/100 WBC (Bld) 0.4 % Critically low 0.9-7.0 [facility] Comment on above: Performed By: #### C BC #### [facility] [address] [place] [address] Dr. Hemanth Kerr Erythrocyte distribution width (RBC) [Ratio] 12.2 % Normal 11.0-15.0 [facility] Comment on above: Performed By: #### C BC #### [facility] [address] [place] [address] Dr. Hemanth Kerr Hematocrit (Bld) [Volume fraction] 38.6 % Normal 36.0-48.0 [facility] Comment on above: Performed By: #### C BC #### [facility] [address] [place] [address] Dr. Hemanth Kerr Hemoglobin (Bld) [Mass/Vol] 12.0 g/dL Normal 12.0-16.0 [facility] Comment on above: Performed By: #### C BC #### [facility] [address] [place] [address] Dr. Hemanth Kerr IG # 0.07 10e3/ul Critically high 0.00-0.03 [facility] Comment on above: Performed By: #### C BC #### [facility] [address] [place] [address] Dr. Hemanth Kerr IG % 0.7 % Critically high 0.0-0.5 [facility] Comment on above: Performed By: #### C BC #### [facility] [address] [place] [address] Dr. Hemanth Kerr LYMPH # 1.2 103/ul Normal 1.2-3.8 [facility] Comment on above: Performed By: #### C BC #### [facility] [address] [place] [address] Dr. Hemanth Kerr Lymphocytes/100 WBC (Bld) 12.1 % Critically low 20.5-60.0 [facility] Comment on above: Performed By: #### C BC #### [facility] [address] [place] [address] Dr. Hemanth Kerr MANUAL DIFF REQ NO Normal [facility] Comment on above: Performed By: #### C BC #### [facility] [address] [address] [address] Hemanth Kerr MCH (RBC) [Entitic mass] 28.0 pg Normal 26.7-34.0 [facility] Comment on above: Performed By: #### C BC #### [facility] [address] [place] [address] Dr. Hemanth Kerr MCHC (RBC) [Mass/Vol] 31.1 g/dL Normal 29.9-35.2 [facility] Comment on above: Performed By: #### C BC #### [facility] [address] [place] [address] Dr. Hemanth Kerr MCV (RBC) [Entitic vol] 90.2 fL Normal 81.0-99.0 [facility] Comment on above: Performed By: #### C BC #### [facility] [address] [place] [address] Dr. Hemanth Kerr MONO # 0.7 103/ul Normal 0.3-0.8 [facility] Comment on above: Performed By: #### C BC #### [facility] [address] [place] [address] Dr. Hemanth Kerr Monocytes/100 WBC (Bld) 6.9 % Normal 1.7-12.0 [facility] Comment on above: Performed By: #### C BC #### [facility] [address] [place] [address] Dr. Hemanth Kerr NEUT # 8.1 103/ul Critically high 1.4-6.5 The [facility] Comment on above: Performed By: #### C BC #### [facility] [address] [place] [address] Dr. Hemanth Kerr Neutrophils/100 WBC (Bld) 79.6 % Critically high 43.0-75.0 [facility] [facility] Comment on above: Performed By: #### C BC #### [facility] [address] [place] [address] Dr. Hemanth Kerr Platelet mean volume (Bld) [Entitic vol] 10.8 fL Normal 9.5-13.5 The [facility] Comment on above: Performed By: #### C BC #### [facility] [address], [place] [address] Dr. Hemanth Kerr PLT 452 103/ul Critically high 150-450 The [facility] Comment on above: Performed By: #### C BC #### [facility] [address], [place] [address] Dr. Hemanth Kerr RBC 4.28 106/ul Normal 4.20-5.40 The [facility] Comment on above: Performed By: #### C BC #### [facility] [address], [place] [address] Dr. Hemanth Kerr WBC 10.1 103/ul Normal 4.0-11.0 [facility] Comment on above: Performed By: #### C BC #### [facility] [address], [place] [address] ABD/PELVIS WO CONon [...] CHRISTINE SÁNCHEZ Date: 2022-10-11 14:45 Normal The [facility] ER URINE PROFILEon 3 Bilirubin Ql (U) Negative Normal NEGATIVE The [facility] Comment on above: Performed By: #### L ACT #### [facility] [address] [place] [address] Dr. Hemanth Kerr Clarity (U) CLEAR Normal CLEAR The [facility] Comment on above: Performed By: #### L ACT #### [facility] [address] [place] [address] Dr. Hemanth Kerr Color (U) LT. YELLOW Normal YELLOW The [facility] Comment on above: Performed By: #### L ACT #### [facility] [address] [place] [address] Dr. Hemanth Kerr ERUAHD A micrscopic examina tion will be performed if indicated. Normal The [facility] Comment on above: Performed By: #### L ACT #### [facility] [address] [place] [address] Dr. Hemanth Kerr Glucose Ql (U) Negative Normal NEGATIVE The [facility] Comment on above: Performed By: #### L ACT #### [facility] [address] [place] [address] Dr. Hemanth Kerr Hemoglobin Ql (U) LARGE Abnormal NEGATIVE The [facility] Comment on above: Performed By: #### L ACT #### [facility] [address] [place] [address] Dr. Hemanth Kerr Ketones Ql (U) Negative Normal NEGATIVE The [facility] Comment on above: Performed By: #### L ACT #### [facility] [address] [place] [address] Dr. Hemanth Kerr LEUKOCYTES SMALL Abnormal NEGATIVE The [facility] Comment on above: Performed By: #### L ACT #### [facility] [address] [place] [address] Dr. Hemanth Kerr Nitrite Ql (U) Negative Normal NEGATIVE [facility] Comment on above: Performed By: #### L ACT #### [facility] [address] [place] [address] Dr. Hemanth Kerr pH (U) 6.5 [pH] Normal 5-9 [facility] Comment on above: Performed By: #### L ACT #### [facility] [address] [place] [address] Dr. Hemanth Kerr Protein (U) [Mass/Vol] 30 mg/dL Abnormal NEGAT IVAN/ TRACE [facility] Comment on above: Performed By: #### L ACT #### [facility] [address] [place] [address] Dr. Hemanth Kerr SPEC GRAVITY <=1.005 Abnormal 1.005-<=1.02 5 [facility] Comment on above: Performed By: #### L ACT #### [facility] [address] [place] [address] Dr. Hemanth Kerr UR MICRO IND INDICATED Normal [facility] Comment on above: Performed By: #### L ACT #### [facility] [address] [place] [address] Dr. Hemanth Kerr Urobilinogen Qn (U) 1.0 {Jose'U}/dL Normal 0.2 - 1. 0 [facility] Comment on above: Performed By: #### L ACT #### [facility] [address] [place] [address] Dr. Hemanth Kerr PREG HCG QUALon 10-11-2022 , QUAL Negative Normal NEGATIVE [facility] Comment on above: Performed By: #### P REG #### [facility] [address] [place] [address] Dr. Hemanth Kerr PROF CHEM 8 (BAS METB)on Anion gap [Moles/Vol] 9.4 mmol/L Normal [facility] Comment on above: Performed By: #### L ACT #### [facility] [address] [place] [address] Dr. Hemanth Kerr Calcium [Mass/Vol] 8.8 mg/dL Normal 8.5-10.1 [facility] Comment on above: Performed By: #### L ACT #### [facility] [address] [place] [address] [address] Hemanth Kerr Chloride [Moles/Vol] 97 mmol/L Critically low 98-107 [facility] Comment on above: Performed By: #### L ACT #### [facility] [address] [place] [address] [address] Hemanth Kerr CO2 [Moles/Vol] 32.4 mmol/L Critically high 21.0-32.0 [facility] Comment on above: Performed By: #### L ACT #### [facility] [address] [address] [address] Hemanth Kerr Creatinine [Mass/Vol] 0.65 mg/dL Normal 0.55-1.02 [facility] Comment on above: Performed By: #### L ACT #### [facility] [address] [address] [address] Hemanth Kerr EGFR-AF MALIAN >60 Normal >=60 [facility] Comment on above: Performed By: #### L ACT #### [facility] [address] [place] [address] [address] Hemanth Kerr EGFR-NON AF MALIAN >60 Normal >=60 [facility] Comment on above: Performed By: #### L ACT #### [facility] [address] [address] [address] Hemanth Kerr Glucose [Mass/Vol] 117 mg/dL Critically high 74-106 [facility] Comment on above: Performed By: #### L ACT #### [facility] [address] [address] [address] Hemanth Kerr Potassium [Moles/Vol] 2.8 mmol/L Critically low 3.5-5.1 [facility] Comment on above: Performed By: #### L ACT #### [facility] [address] [address] [address] Hemanth Kerr Sodium [Moles/Vol] 135 mmol/L Critically low 136-145 [facility] Comment on above: Performed By: #### L ACT #### [facility] [address] [address] [address] Hemanth Kerr Urea nitrogen [Mass/Vol] 8.0 mg/dL Normal 7.0-18.0 The [facility] Comment on above: Performed By: #### L ACT #### [facility] [address] [place] [address] Dr. Hemanth Kerr Urea nitrogen/Creatinine [Mass ratio] 12.3 mg/mg Normal The [facility] Comment on above: Performed By: #### L ACT #### [facility] [address] [place] [address] Dr. Hemanth Kerr URINE MICROSCOPIC ONLYon BACTERIA SMALL Abnormal NONE SEEN The [facility] Comment on above: Performed By: #### L ACT #### [facility] [address] [place] [address] Dr. Hemanth Kerr Bacteria identified Cx Nom (U) INDICATED Normal The [facility] Comment on above: Performed By: #### L ACT #### [facility] [address] [place] [address] [address] Hemanth Kerr CAST NONE SEEN Normal NONE SEEN The [facility] Comment on above: Performed By: #### L ACT #### [facility] [address] [place] [address] Dr. Hemanth Kerr Crystals LM Nom (Urine sed) NONE SEEN Normal NONE SEEN [facility] Comment on above: Performed By: #### L ACT #### [facility] [address] [place] [address] Dr. Hemanth Kerr Epithelial cells LM Ql (Urine sed) FEW Abnormal NONE SEEN /RARE The [facility] Comment on above: Performed By: #### L ACT #### [facility] [address] [place] [address] Dr. Hemanth Kerr MUCOUS NONE SEEN Normal NONE SEEN The [facility] Comment on above: Performed By: #### L ACT #### [facility] [address] [place] [address] Dr. Hemanth Kerr RBC 0-2 Normal 0-2 The [facility] Comment on above: Performed By: #### L ACT #### [facility] [address] [place] [address] Dr. Hemanth Kerr WBC 10-20 Abnormal NONE SEEN The [facility] Comment on above: Performed By: #### L ACT #### [facility] [address] [place] [address] Dr. Hemanth Kerr PREG QUANT HCGon 09-12-2022 HCG QUANT 66 mIU/mL Normal The [facility] Comment on above: Performed By: #### C MP #### [facility] [address] [place] [address] Dr. Hemanth Kerr HCG RANGE SEE BELOW Normal The [facility] Comment on above: Result Comment: 5-50 0.2-1 WEEK 50-500 1-2 WEEKS 100-5,000 2-3 WEEKS 500-10,000 3-4 WEEKS 1,000-50,000 4-5 WEEKS 10,000-100,000 5-6 WEEKS 15,000-200,000 6-8 WEEKS 10,000-100,000 2-3 MONTHS Performed By: #### C MP #### [facility] [address] [place] [address] Dr. Hemanth Kerr CBC AUTO DIFFon 08-16-2022 BASO # 0.0 103/ul Normal 0.0-0.1 [facility] Comment on above: Performed By: #### L ACT #### [facility] [address] [place] [address] Dr. Hemanth Kerr Basophils/100 WBC (Bld) 0.6 % Normal 0.2-2.0 [facility] Comment on above: Performed By: #### L ACT #### [facility] [address] [place] [address] Dr. Hemanth Kerr EO # 0.1 103/ul Normal 0.0-0.7 The [facility] Comment on above: Performed By: #### L ACT #### [facility] [address] [place] [address] Dr. Hemanth Kerr Eosinophils/100 WBC (Bld) 1.3 % Normal 0.9-7.0 The [facility] Comment on above: Performed By: #### L ACT #### [facility] [address] [place] [address] Dr. Hemanth Kerr Erythrocyte distribution width (RBC) [Ratio] 12.0 % Normal 11.0-15.0 [facility] Comment on above: Performed By: #### L ACT #### [facility] [address] [place] [address] Dr. Hemanth Kerr Hematocrit (Bld) [Volume fraction] 35.6 % Critically low 36.0-48.0 [facility] Comment on above: Performed By: #### L ACT #### [facility] [address] [place] [address] Dr. Hemanth Kerr Hemoglobin (Bld) [Mass/Vol] 12.4 g/dL Normal 12.0-16.0 [facility] Comment on above: Performed By: #### L ACT #### [facility] [address] [place] [address] Dr. Hemanth Kerr IG # 0.02 10e3/ul Normal 0.00-0.03 [facility] Comment on above: Performed By: #### L ACT #### [facility] [address] [place] [address] Dr. Hemanth Kerr IG % 0.3 % Normal 0.0-0.5 [facility] Comment on above: Performed By: #### L ACT #### [facility] [address] [place] [address] Dr. Hemanth Kerr LYMPH # 1.9 103/ul Normal 1.2-3.8 [facility] Comment on above: Performed By: #### L ACT #### [facility] [address] [place] [address] Dr. Hemanth Kerr Lymphocytes/100 WBC (Bld) 27.5 % Normal 20.5-60.0 The [facility] Comment on above: Performed By: #### L ACT #### [facility] [address] [place] [address] Dr. Hemanth Kerr MANUAL DIFF REQ NO Normal The [facility] Comment on above: Performed By: #### L ACT #### [facility] [address] [place] [address] Dr. Hemanth Kerr MCH (RBC) [Entitic mass] 29.6 pg Normal 26.7-34.0 [facility] Comment on above: Performed By: #### L ACT #### [facility] [address] [place] [address] Dr. Hemanth Kerr MCHC (RBC) [Mass/Vol] 34.8 g/dL Normal 29.9-35.2 [facility] Comment on above: Performed By: #### L ACT #### [facility] [address] [place] [address] Dr. Hemanth Kerr MCV (RBC) [Entitic vol] 85.0 fL Normal 81.0-99.0 [facility] Comment on above: Performed By: #### L ACT #### [facility] [address] [place] [address] Dr. Hemanth Kerr MONO # 0.4 103/ul Normal 0.3-0.8 [facility] Comment on above: Performed By: #### L ACT #### [facility] [address] [place] [address] Dr. Hemanth Kerr Monocytes/100 WBC (Bld) 6.3 % Normal 1.7-12.0 [facility] Comment on above: Performed By: #### L ACT #### [facility] [address] [place] [address] Dr. Hemanth Kerr NEUT # 4.5 103/ul Normal 1.4-6.5 [facility] Comment on above: Performed By: #### L ACT #### [facility] [address] [place] [address] Dr. Hemanth Kerr Neutrophils/100 WBC (Bld) 64.0 % Normal 43.0-75.0 The [facility] Comment on above: Performed By: #### L ACT #### [facility] [address] [place] [address] Dr. Hemanth Kerr Platelet mean volume (Bld) [Entitic vol] 10.6 fL Normal 9.5-13.5 [facility] Comment on above: Performed By: #### L ACT #### [facility] [address] [place] [address] Dr. Hemanth Kerr PLT 247 103/ul Normal 150-450 [facility] Comment on above: Performed By: #### L ACT #### [facility] [address] [place] [address] Dr. Hemanth Kerr RBC 4.19 106/ul Critically low 4.20-5.40 [facility] Comment on above: Performed By: #### L ACT #### [facility] [address] [place] [address] Dr. Hemanth Kerr WBC 7.0 103/ul Normal 4.0-11.0 [facility] Comment on above: Performed By: #### L ACT #### [facility] [address] [place] [address] Dr. Hemanth Kerr Covid-19 PCR ([facility])on 07-20 SARS-CoV-2 (COVID-19) RNA ELMO+probe Ql (Unsp spec) Not detected Normal NOT DETECTED The [facility] Comment on above: Result Comment: This test is not yet approved or cleared by the [place] FDA. When there are no FDA-approved or cleared tests available, and other criteria are met, FDA can make tests available under an emergency access mechanism called an Emergency Use Authorization (EUA). The EUA for this test is supported by the [place] of Health and Human Service's (HHS's) declaration [...] SARS-CoV-2. Performed By: #### C MP #### [facility] [address] [place] [address] Dr. Hemanth Kerr PREG QUANT HCGon 08-16-2022 HCG QUANT 84660 mIU/mL Normal [facility] Comment on above: Performed By: #### P REG #### [facility] [address] [place] [address] Dr. Hemanth Kerr HCG RANGE SEE BELOW Normal [facility] Comment on above: Result Comment: 5-50 0.2-1 WEEK 50-500 1-2 WEEKS 100-5,000 2-3 WEEKS 500-10,000 3-4 WEEKS 1,000-50,000 4-5 WEEKS 10,000-100,000 5-6 WEEKS 15,000-200,000 6-8 WEEKS 10,000-100,000 2-3 MONTHS Performed By: #### P REG #### [facility] [address] [place] [address] Dr. Hemanth Kerr PREG QUANT HCGon 08-14-2022 HCG QUANT 41565 mIU/mL Normal [facility] Comment on above: Performed By: #### P REG #### [facility] [address] [place] [address] Dr. Hemanth Kerr HCG RANGE SEE BELOW Normal [facility] Comment on above: Result Comment: 5-50 0.2-1 WEEK 50-500 1-2 WEEKS 100-5,000 2-3 WEEKS 500-10,000 3-4 WEEKS 1,000-50,000 4-5 WEEKS 10,000-100,000 5-6 WEEKS 15,000-200,000 6-8 WEEKS 10,000-100,000 2-3 MONTHS Performed By: #### P REG #### [facility] [address] [place] [address] Dr. Hemanth Kerr US PREG TVon 08-14-2022 [...] by: CHRISTINE SÁNCHEZ Date: 2022-08-14 16:22 Normal [facility] US PREG TVon 07-27-2022 US [...] by: CHRISTINE SÁNCHEZ Date: 2022-07-27 17:04 Normal [facility] XR CHEST 1 Von 07-09-2022 [...] by: FELIX WEBB Date: 2022-07-09 12:06 Normal [facility] CNPLarissa 12-12-2021 FRANK Telephone (CHANDANA) ----- NOE DURAN ([id number]) 1995 F Date Time Provider Department 12/12/21 KING SUAZO During your visit today, we recorded the following information about you: Angelia Almazan 12/12/2021 11:16 AM Signed Pleases sign pending new cbc order. Thanks, Angelia REN Almazan Allergies As of Date: 12/12/2021 (No Known Allergies) Date Reviewed: 12/12/2021 Reviewed by: Jasmin Zuñiga APRN.PERFORATOR TYPIST - Fully Assessed Reason for Visit: Lab Orders [4348] Primary Visit Diagnosis:Iron deficiency anemia, unspecified iron deficiency anemia type [D50.9] Order(s):CBC + DIFF [SQCBCDIF] Order #: [id number] FUTURE Prescriptions as of 12/12/2021 - gabapentin (NEURONTIN) 400 mg capsule Take by mouth. - Polysaccharide Iron Complex 180 mg iron cap Take by mouth. - aspirin 81 mg cap Take 81 mg by mouth once daily. - ONDANSETRON HCL ORAL Take 4 mg by mouth as needed. Problem List As Of Date: 12/12/2021 (None) Encounter Status:Closed by JASMIN ZUÑIGA on 12/12/21 [facility] 11-10-2021 CNPN Telephone (HEMASA) ----- NOE DURAN ([id number]) 1995 F Date Time Provider Department 11/10/21 [...] B12 is slightly low. Options would be [id number] B12 tablets 2 mg daily or start [...] by JENNYFER DE LA O on 11/10/21 [facility] CNOVSPon 11-08-2021 CNOVSP Visit (SP) Office (HEMASA) ----- ARCADIONOE ([id number]) 1995 F Date Time Provider Department 11/08/21 11:00 AM KING SUAZO During your visit today, we recorded the following information about you: Temperature Pulse Respiration Blood pressure 97.7 degrees 108/minute 16/minute 127/70 Weight 93.4 kg King Suzao MD 11/08/2021 3:47 PM Signed PATIENT NAME: [...] shortness of breath, and is seen at [place] emergency room. Labs revealed a hemoglobin of [...] changes, r (more content not included)... Normal [facility] Comp Metabolic Panelon 11-08 Albumin [Mass/Vol] 3.6 g/dL Low 3.9-4.9 [facility] Comment on above: Performed By: #### S ERFOL, IRON, B12, FERR #### [facility] [address] [place], [place] [address] ALP [Catalytic activity/Vol] 79 U/L Normal 34-123 [facility] Comment on above: Performed By: #### S ERFOL, IRON, B12, FERR #### [address] [address] ALT [Catalytic activity/Vol] 8 U/L Normal 7-38 [facility] Comment on above: Performed By: #### S ERFOL, IRON, B12, FERR #### [place] [address] Anion gap [Moles/Vol] 9 mmol/L Normal 9-18 [facility] Comment on above: Performed By: #### S ERFOL, IRON, B12, FERR #### [place] [address] AST [Catalytic activity/Vol] 13 U/L Normal 13-35 [facility] Comment on above: Performed By: #### S ERFOL, IRON, B12, FERR #### [place] [address] Bilirubin [Mass/Vol] 0.2 mg/dL Normal 0.2-1.3 [facility] Comment on above: Performed By: #### S ERFOL, IRON, B12, FERR #### [place] [id number] Calcium [Mass/Vol] 9.3 mg/dL Normal 8.5-10.2 [facility] Comment on above: Performed By: #### S ERFOL, IRON, B12, FERR #### [place] [address] Chloride [Moles/Vol] 102 mmol/L Normal 97-105 [facility] Comment on above: Performed By: #### S ERFOL, IRON, B12, FERR #### [address], [place] [address] CO2 [Moles/Vol] 23 mmol/L Normal 22-30 [facility] Comment on above: Performed By: #### S ERFOL, IRON, B12, FERR #### [facility] [address] [place] [address] Creatinine [Mass/Vol] 0.55 mg/dL Low 0.58-0.96 [facility] Comment on above: Performed By: #### S ERFOL, IRON, B12, FERR #### [facility] [address] [place] [address] eGFR- Amer. >60 Normal [facility] Comment on above: Performed By: #### S ERFOL, IRON, B12, FERR #### [place] [id number] [place] [address] eGFR-All Other Races >60 Normal [facility] S ERFOL, IRON, B12, FERR #### [facility] [address] [place] [id number] Glucose [Mass/Vol] 96 mg/dL Normal 74-99 [facility] Comment on above: Result Comment: The [place] [employer] (ADA) provides guidance for cutoff [...] Standards of Medical Care in Diabetes 2016, [place] [employer]. Diabetes Care. 2016.39(Suppl 1). Performed By: #### S ERFOL, IRON, B12, FERR #### [facility] [address] [place] [address] Potassium [Moles/Vol] 3.3 mmol/L Low 3.7-5.1 [facility] Comment on above: Performed By: #### S ERFOL, IRON, B12, FERR #### [facility] [address] [place] [address] Protein [Mass/Vol] 6.3 g/dL Normal 6.3-8.0 [facility] Comment on above: Performed By: #### S ERFOL, IRON, B12, FERR #### [facility] [address] [place] [id number] Sodium [Moles/Vol] 134 mmol/L Low 136-144 [facility] Comment on above: Performed By: #### S ERFOL, IRON, B12, FERR #### [facility] [address] [place] [address] Urea nitrogen [Mass/Vol] 4 mg/dL Low 7-21 [facility] Comment on above: Performed By: #### S ERFOL, IRON, B12, FERR #### [facility] [address] [place] [address] Ferritinon 11-08-2021 Ferritin [Mass/Vol] 203.0 ng/mL Normal 14.7-205.1 [facility] Comment on above: Performed By: #### S ERFOL, IRON, B12, FERR #### [place] [address] [place] [address] Folate, Serumon 11-08-2021 Folate [Mass/Vol] 8.5 ng/mL Normal >4.7 [facility] Comment on above: Performed By: #### S ERFOL, IRON, B12, FERR #### [place] [address] [place] [address] Iron and TIBCon 11-08-2021 Iron [Mass/Vol] 93 ug/dL Normal 41-186 [facility] Comment on above: Performed By: #### S ERFOL, IRON, B12, FERR #### [place] [address] [place] [address] TIBC 407 ug/dL High 232-386 [facility] Comment on above: Performed By: #### S ERFOL, IRON, B12, FERR #### [place] [address] [place] [address] Transferrin Saturatn 23 % Normal 15-57 [facility] Comment on above: Performed By: #### S ERFOL, IRON, B12, FERR #### [place] [address] Remote CBCDIF (for [facility] use o nly)on 11-08-2021 Abs Baso <0.03 Normal <0.11 [facility] Abs [place] 0.57 k/uL Normal <0.87 [facility] Abs Neut 4.67 k/uL Normal 1.45-7.50 [facility] Absolute nRBC <0.01 Normal <0.01 [facility] Basophils/100 WBC (Bld) 0.3 % Normal [facility] DTYPE Auto Diff Normal [facility] Eosinophils (Bld) [#/Vol] 0.05 10*3/uL Normal <0.46 [facility] Eosinophils/100 WBC (Bld) 0.8 % Normal [facility] Erythrocyte distribution width (RBC) [Ratio] 29.9 % High 11.5-15.0 [facility] Hematocrit (Bld) [Volume fraction] 32.6 % Low 36.0-46.0 [facility] Hemoglobin (Bld) [Mass/Vol] 10.1 g/dL Low 11.5-15.5 [facility] Lymphocytes (Bld) [#/Vol] 1.25 10*3/uL Normal 1.00-4.00 [facility] Lymphocytes/100 WBC (Bld) 19.1 % Normal [facility] MCH 25.1 pG Low 26.0-34.0 [facility] MCHC (RBC) [Mass/Vol] 31.0 g/dL Normal 30.5-36.0 [facility] MCV (RBC) [Entitic vol] 81.1 fL Normal 80.0-100.0 [facility] Monocytes/100 WBC (Bld) 8.7 % Normal [facility] Neutrophils/100 WBC (Bld) 71.1 % Normal [facility] NRBCs 0.0 /100 WBC Normal 0 [facility] Platelet mean volume (Bld) [Entitic vol] 10.3 fL Normal 9.0-12.7 [facility] Platelets (Bld) [#/Vol] 223 10*3/uL Normal 150-400 [facility] Comment on above: Result Comment: Resu lt checked and verified Sample checked for a clot. RBC (Bld) [#/Vol] 4.02 10*6/uL Normal 3.90-5.20 [facility] WBC (Bld) [#/Vol] 6.56 10*3/uL Normal 3.70-11.00 [facility] Reticulocyteon 11-08-2021 Abs Retic 0.140 M/uL High 0.0180-0.100 0 [facility] Comment on above: Performed By: #### S ERFOL, IRON, B12, FERR #### [facility] [address] [place], [place] [id number] Retic% 3.5 % High 0.4-2.0 [facility] Comment on above: Performed By: #### S ERFOL, IRON, B12, FERR #### [facility] [address] [place], [place] [id number] Vitamin B12on 11-08-2021 Cobalamin (Vitamin B12) [Mass/Vol] 218 pg/mL Low 232-1245 [facility] Comment on above: Performed By: #### S ERFOL, IRON, B12, FERR #### [facility] [address] [place], [place] [address] CBCon 04-26-2020 Erythrocyte distribution width (RBC) [Ratio] 14.7 % High 11.8 - 14.4 % [place] Hematocrit (Bld) [Volume fraction] 36.0 % Low 36.3 - 47.1 % [place] Hemoglobin (Bld) [Mass/Vol] 10.9 g/dL Low 11.9 - 15.1 g/dL [place] Interpretation and review of laboratory results Abnormal [place] MCH (RBC) [Entitic mass] 26.2 pg 25.2 - 33.5 pg [place] MCHC (RBC) [Mass/Vol] 30.3 g/dL 28.4 - 34.8 g/dL [place] MCV (RBC) [Entitic vol] 86.5 fL 82.6 - 102.9 fL [place] Platelet mean volume (Bld) [Entitic vol] 10.8 fL 8.1 - 13.5 fL [place] Platelets (Bld) [#/Vol] 328 10*3/uL [place] RBC (Bld) [#/Vol] 4.16 10*6/uL 3.95 - 5.1 1 m/uL [place] WBC (Bld) [#/Vol] 0.0 10*3/uL 0.0 per 10 0 WBC [place] WBC (Bld) [#/Vol] 5.7 10*3/uL [place] Comprehensive Metabolic Pane perez 04-26-2020 Albumin [Mass/Vol] 3.4 g/dL Low 3.5 - 5.2 g/dL [place] Albumin/Globulin [Mass ratio] 1.5 {ratio} [place] ALP [Catalytic activity/Vol] 40 U/L 35 - 104 U/L [place] ALT [Catalytic activity/Vol] 12 U/L 5 - 33 U/L [place] Anion gap [Moles/Vol] 9 mmol/L 9 - 17 mmol/L [place] AST [Catalytic activity/Vol] 12 U/L <32 [place] Bilirubin Ql (U) <0.10 Low 0.3 - 1.2 mg/dL [place] Bun/Cre Ratio 26 High [place] Calcium [Mass/Vol] 9.3 mg/dL 8.6 - 10. 4 mg/dL [place] Chloride [Moles/Vol] 109 mmol/L High 98 - 10 7 mmol/L [place] CO2 [Moles/Vol] 26 mmol/L 20 - 31 mmol/L [place] Creatinine [Mass/Vol] 0.57 mg/dL 0.5 - 0.9 mg/dL [place] GFR >60 >60 mL/min [place] GFR Non- >60 >60 mL/min [place] Glucose [Mass/Vol] 92 mg/dL 70 - 99 mg/dL [place] Interpretation and review of laboratory results Abnormal [place] Potassium [Moles/Vol] 3.8 mmol/L 3.7 - 5.3 mmol/L [place] Protein [Mass/Vol] 5.7 g/dL Low 6.4 - 8.3 g/dL [place] Sodium [Moles/Vol] 144 mmol/L 135 - 144 mmol/L [place] Urea nitrogen [Mass/Vol] 15 mg/dL 6 - 20 mg/dL [place] HCG Qualitative, Serumon hCG Qual Negative NEGATIVE [place] Comment on above: Specimens with hCG l evels near the threshold of the test (25 mIU/mL) may give a negative or indeterminate result. In such cases, another test should be performed with a new specimen in 48-72 hours. If early is suspected clinically in this setting, correlation with quantitative serum b-hCG level is suggested. [facility] has confirmed the use of plasma for this test. This has not been cleared or approved by the U.S. Food and Drug Administration. The FDA has determined that such clearance is not necessary. HIV Screenon 04-26-2020 HIV Ag/Ab NONREACTIVE NONREACTIVE [place] Comment on above: No laboratory eviden ce of HIV infection. If acute HIV infection is suspected, consider testing for HIV-1 RNA. Hepatitis Panel, Acuteon HAV IgM IA Qn (S) NONREACTIVE NONREACTIVE [place] Hep B Core Ab, IgM NONREACTIVE NONREACTIVE [place] Hepatitis B Surface Ag NONREACTIVE NONREACTIVE [place] Hepatitis C Ab REACTIVE Abnormal NONREACTIVE [place] Comment on above: The hepatitis C [...] Interpretation and review of laboratory results Abnormal [place] Metabolic Panelon 04-26-2020 GFR/1.73 sq M predicted among non-blacks MDRD (S/P/Bld) [Vol rate/Area] [place] Comment on above: Stage 1: Some [...] body mass. Additional eGFR calculator available at: http://www.Karaz.Postdeck/multiple_crcl_2012.htm Microscopic Urinalysison Amorphous, UA NOT REPORTED None [facility] [place] Bacteria, UA NOT REPORTED None [facility] [place] Casts UA NOT REPORTED /LPF [facility] Crystals, UA 5 TO 10 Abnormal None /HPF [facility] Crystals, UA CALCIUM OXALATE Abnormal None /HPF [facility] Epithelial Cells UA 0 TO 2 [facility] [place] Interpretation and review of laboratory results Abnormal [facility] Mucus, UA TRACE Abnormal None [facility] [place] Other Observations UA NOT REPORTED NOT REQ. M [facility] RBC (U) [#/Vol] None [facility] Renal Epithelial, UA NOT REPORTED 0 /HPF Me [facility] Trichomonas, UA NOT REPORTED None [facility] [place] WBC, UA 0 TO 2 [facility] [place] Yeast, UA NOT REPORTED None [facility] - [facility] Urinalysis Reflex to Culture on 04-26-2020 Bilirubin Urine Negative NEGATIVE [facility] Color, UA YELLOW YELLOW [place] Glucose, Ur Negative NEGATIVE [facility] Interpretation and review of laboratory results Abnormal [facility] [place] Ketones Ql (U) Negative NEGATIVE [facility] Leukocyte esterase Test strip Ql (U) Negative NEGATIVE [facility] Nitrite, Urine Negative NEGATIVE [facility] pH, UA 6.5 [place] Protein (U) [Mass/Vol] Negative NEGATIVE [facility] Specific [place], UA 1.025 High [facility] Turbidity UA CLEAR CLEAR [facility] [place] Urinalysis Comments NOT REPORTED [facility] Urine Hgb Negative NEGATIVE [facility] Urobilinogen, Urine Normal Normal [facility] ED Clinical Summaryon 2019 ED Clinical Summary (Inserted Image. Ritika ble to display) [address] [place] [address] ED Clinical Summary Person Information Name: Kathryn Duran/NewKiko Age: 25 Years : 1995 Sex: Female PCP: Marital Status: Single Phone: Race: White Ethnicity: Not or Language: Cameroonian Visit Reason: Drug withdrawal; Drug withdrawal Acuity: 3 Enc Type: Emergency Med Service: Emergency Medicine Arrival: 03/16/2020 20:10:45 Discharge: 03/17/2020 02:12:00 LOS: 000 06:02 Checkin: 03/16/2020 20:10:45 Checkout: 03/17/2020 02:12:00 Dispo Type: Home or Self Care Address: [address] [place] [id number] Provider Notes: Diagnosis: 1:Affective disorder; 2:Drug usage [...] range between ( 27.2 and 40.8 ) [place] Auto: 11.4 % -- Normal range between [...] range between ( 36.0 and 46.0 ) [place] Absolute: 1.5 x10 MCH: 27.4 pg -- [...] 03/16/2020 20:20:41 Follow up: With: Address: When: [facility] In [place], [place] Within 1 to 2 days Discharge Orders: Discharge Patient 03/17/20 1:45:00 EDT, Discharge to Home, Self Patient Education Information: Understanding Methamphetamine Abuse and Addiction; Treating Affective (Mood) Disorders [facility] Poison Help line: . [facility] Hotline: [place] Tobacco Quit Line: [place], [place]) [address]: [phone] [place], [place]) [address]: [phone] [facility] [address] [place], [place]: [phone] Normal [facility] hCG Quantitativeon 0 Beta hCG Qnt 1.7 mIU/mL Normal 0.0-4.9 [facility] Comment on above: Result Comment: 0.0 - 4.9 Negative for 5.0 - 25.0 Indeterminant for : Suggest repeat in 72 hours. >25.0 Positive for Performed By: #### H CG ####[address] [address] .UA Microscp Aon 03-16-2020 UA Hyline Cast Qual >20 Abnormal Negative [facility] Comment on above: Performed By: #### C [id number] ####[address] [place] [address] UA Mucus Present Abnormal Absent [facility] Comment on above: Performed By: #### C [id number] ####[address] [place] [address] UA RBC Quant 12 /HPF High 0-5 [facility] Comment on above: Performed By: #### C [id number] ####[address] [address] UA Squepi Cells Quant 6 /HPF Normal 0-29 [facility] Comment on above: Performed By: #### C [id number] ####[address] [address] UA WBC Quant 7 /HPF High 0-5 [facility] Comment on above: Performed By: #### C [id number] ####[address] [address] .eGFRon 03-16-2020 eGFR AA 52 mL/min/1.73m? Low >=60 [facility] Comment on above: Result Comment: Resu lt = 0-14.9 mL/min/1.73 m2 Kidney failure or Dialysis Result = 15-29 mL/min/1.73 m2 Severe decrease in GFR Result = 30-59 mL/min/1.73 m2 Moderate decrease in GFR Result >= 60 mL/min/1.73 m2 Normal or increased GFR Performed By: #### E GFR #### [address] [address] eGFR Non-AA 43 mL/min/1.73m? Low >=60 [facility] Comment on [...] dosing. Performed By: #### E GFR #### [address] [address] CBC w/ Diffon 03-16-2020 Erythrocyte distribution width (RBC) [Ratio] 15.9 % High 11.6-14.8 [facility] Comment on above: Performed By: #### C BC #### [address] [address] Hematocrit (Bld) [Volume fraction] 37.5 % Normal 36.0-46.0 [facility] Comment on above: Performed By: #### C BC #### [address] [address] Hemoglobin (Bld) [Mass/Vol] 12.5 g/dL Normal 12.0-16.0 [facility] Comment on above: Performed By: #### C BC #### [address] [address] MCH (RBC) [Entitic mass] 27.4 pg Normal 27.0-35.0 [facility] Comment on above: Performed By: #### C BC #### [address] [address] MCHC (RBC) [Mass/Vol] 33.2 % Normal 31.0-37.0 [facility] Comment on above: Performed By: #### C BC #### [address] [address] MCV (RBC) [Entitic vol] 82.4 fL Normal 80.0-100.0 [facility] Comment on above: Performed By: #### C BC #### [address] [address] Platelet mean volume (Bld) [Entitic vol] 9.4 fL Normal 6.7-10.6 [facility] Comment on above: Performed By: #### C BC #### [address] [address] Platelets (Bld) [#/Vol] 307 x10*3/mcL Normal 150-350 [facility] Comment on above: Performed By: #### C BC #### [address] [address] RBC (Bld) [#/Vol] 4.55 x10*6/mcL Normal 3.80-5.20 [facility] Comment on above: Performed By: #### C BC #### [address] [address] WBC (Bld) [#/Vol] 12.9 x10*3/mcL High 4.5-11.0 [facility] Comment on above: Performed By: #### C BC #### [address] [address] [facility] Albumin [Mass/Vol] 5.2 g/dL High 3.2-4.9 [facility] Comment on above: Result Comment: [facility] Laboratory updated the methodology used for albumin testing on 04/24/18. Albumin measurement was performed using a bromcresol purple dye-binding assay. Performed By: #### C OMP #### [address] [address] Albumin/Globulin [Mass ratio] 1.5 {ratio} Normal 1.1-2.2 [facility] Comment on above: Performed By: #### C OMP #### [address] [address] Alk Phos 47 IU/L Normal 32-91 [facility] Comment on above: Performed By: #### C OMP #### [address] [address] ALT [Catalytic activity/Vol] 19 U/L Normal 14-54 [facility] Comment on above: Performed By: #### C OMP #### [address] [address] Anion gap [Moles/Vol] 22 mmol/L High 7-17 [facility] Comment on above: Performed By: #### C OMP #### [address] [place] [address] AST [Catalytic activity/Vol] 31 U/L Normal 15-41 [facility] Comment on above: Performed By: #### C OMP #### [address] [place] [address] Bili Total 1.4 mg/dL High 0.3-1.2 [facility] Comment on above: Performed By: #### C OMP #### [address] [place] [address] Calcium [Mass/Vol] 10.2 mg/dL Normal 8.5-10.3 [facility] Comment on above: Performed By: #### C OMP #### [address] [place] [address] Chloride [Moles/Vol] 100 mmol/L Normal 98-110 [facility] Comment on above: Performed By: #### C OMP #### [address] [place] [address] CO2 [Moles/Vol] 19 mmol/L Low 22-32 [facility] Comment on above: Performed By: #### C OMP #### [address] [place] [address] Creatinine [Mass/Vol] 1.47 mg/dL High 0.44-1.03 [facility] Comment on above: Performed By: #### C OMP #### [address] [place] [address] Glucose [Mass/Vol] 85 mg/dL Normal 70-99 [facility] Comment on above: Performed By: #### C OMP #### [address] [place] [address] Potassium [Moles/Vol] 3.7 mmol/L Normal 3.4-4.8 [facility] Comment on above: Performed By: #### C OMP #### [address] [place] [address] Protein [Mass/Vol] 8.7 g/dL High 6.5-8.1 [facility] Comment on above: Performed By: #### C OMP #### [address] [address] Sodium [Moles/Vol] 137 mmol/L Normal 133-142 [facility] Comment on above: Performed By: #### C OMP #### [address] [address] Urea nitrogen [Mass/Vol] 25 mg/dL Normal 8-26 [facility] Comment on above: Performed By: #### C OMP #### [address] [address] Urea nitrogen/Creatinine [Mass ratio] 17.0 mg/mg Normal 10.0-20.0 [facility] Comment on above: Performed By: #### C OMP #### [address] [address] CPKon 03-16-2020 Creatine Phosphokinase 439 IU/L High 38-234 [facility] Comment on above: Performed By: #### C P #### [address] [address] Diff Autoon 03-16-2020 Baso Absolute 0.0 x10*3/mcL Normal 0.0-0.2 [facility] Comment on above: Performed By: #### . Automated Diff #### [address] [address] Basophils/100 WBC (Bld) 0.4 % Normal 0.0-1.5 [facility] Comment on above: Performed By: #### . Automated Diff #### [address] [address] Eos Absolute 0.0 x10*3/mcL Normal 0.0-0.4 [facility] Comment on above: Performed By: #### . Automated Diff #### [address] [address] Eosinophils/100 WBC (Bld) 0.1 % Normal 0.0-5.4 [facility] Comment on above: Performed By: #### . Automated Diff #### [address] [address] Lymphocytes (Bld) [#/Vol] 1.4 x10*3/mcL Normal 1.0-4.8 [facility] Comment on above: Performed By: #### . Automated Diff #### [address] [address] Lymphocytes/100 WBC (Bld) 10.8 % Low 27.2-40.8 [facility] Comment on above: Performed By: #### . Automated Diff #### [address] [address] [place] Absolute 1.5 x10*3/mcL High 0.1-1.1 [facility] Comment on above: Performed By: #### . Automated Diff #### [address] [address] Monocytes/100 WBC (Bld) 11.4 % Normal 3.7-11.9 [facility] Comment on above: Performed By: #### . Automated Diff #### [address] [address] Neutro Absolute 10.0 x10*3/mcL High 1.8-7.7 [facility] Comment on above: Performed By: #### . Automated Diff #### [address] [address] Neutro Auto 77.3 % High 47.2-70.8 [facility] Comment on above: Performed By: #### . Automated Diff #### [address] [address] ED Note-Nursingon 03-16-2020 ED Note-Nursing Lab called about add ons Electronically signed by Barbara Holman 03/16/20 20:49 EDT Normal [facility] ED Note-Physicianon 06-30-20 20 ED Note-Physician Chief [...] that she has residential set up at [facility] in [place], [place] but she has to detox first. [...] as well. She was seen by [facility] outreach and education social worker who has arranged for her to go to [facility] tomorrow as patient is interested in treatment. Verbally contracted to safety and filled out a safety plan. Alonso with social work spoke with director of special services, Jelena who will arrange for further follow-up when they arrive tomorrow. Family is agreeable with plan. Patient has good support. They will return if any changes of symptoms or concern. Silvia Castañeda scribing for and in the presence of Dr. Cornell. Scribe Attestation: The information in this document, created by the medical communication specialist for me, accurately reflects the services [...] High Lymph Auto 03/16/20 20:39 10.8 Low [place] Auto 03/16/20 20:39 11.4 Eos Auto 03/16/20 20:39 0.1 Basophil Auto 03/16/20 20:39 0.4 Neutro Absolute 03/16/20 20:39 10.0 High Lymph Absolute 03/16/20 20:39 1.4 [place] Absolute 03/16/20 20:39 1.5 High Eos Absolute [...] Lima Cornell MD 03/17/2020 04:16 EDT Normal [facility] Ethanolon 03-16-2020 Ethanol [Mass/Vol] mg/dL Normal <=9 [facility] Comment on above: Result Comment: To c onvert mg/dL to g/dL, divide result by 1,000. Legal limit of intoxication is 80 mg/dL (0.08 g/dL). Performed By: #### A LC #### [address] [address] UA w Culture if Indon 2019 Color (U) Terri Normal [facility] Comment on above: Performed By: #### U CI #### [address] [address] Glucose (U) [Mass/Vol] Negative Normal Negative [facility] Comment on above: Performed By: #### U CI #### [address] [address] Ketones Ql (U) 20 mg/dL Abnormal Negative [facility] Comment on above: Performed By: #### U CI #### [address] [place] [address] UA Blood Small Abnormal Negative [facility] Comment on above: Performed By: #### U CI #### [facility] [address] [place] [address], [place] [address] UA Clarity Cloudy Normal [facility] Comment on above: Performed By: #### U CI #### [address] [place] [address] UA Leukocyte Esterase Trace Abnormal Negative [facility] Comment on above: Performed By: #### U CI #### [address] [place] [address] UA Nitrite Negative Normal Negative [facility] Comment on above: Performed By: #### U CI #### [address] [place] [address] UA pH 5.0 Normal 4.5 - 7.8 [facility] Comment on above: Performed By: #### U CI #### [address] [place] [address] UA Protein 100 mg/dL Abnormal Negative [facility] Comment on above: Performed By: #### U CI #### [address] [address] UA Source Clean Catch Normal [facility] Comment on above: Performed By: #### U CI #### [address] [place] [address] UA Spec Grav 1.025 Normal 1.003-1.035 [facility] Comment on above: Performed By: #### U CI #### [address] [place] [address] UA Urobilinogen 0.2 mg/dL Normal 0.2 - 1.0 [facility] Comment on above: Performed By: #### U CI #### [address] [place] [address] Urobilinogen Qn (U) Small Abnormal Negative [facility] Comment on above: Performed By: #### U CI #### [address] [address] UDS Compon 03-16-2020 Creatinine [Mass/Vol] mg/dL Normal [facility] Comment on above: Performed By: #### C [id number] #### [address] [address] Ur Amph Scrn Positive Abnormal NEG = <1000 [facility] Comment on above: Result Comment: This unconfirmed positive screening result is to be used for medical treatment purposes only. Unconfirmed screening results must not be used for non-medical purposes. (e.g. employment testing, legal testing). Performed By: #### C [id number] #### [address] [address] Ur Anastasia Scrn Negative Normal NEG = <200 [facility] Comment on above: Performed By: #### C [id number] #### [address] [address] Ur Benzodia Scrn Negative Normal NEG = <200 [facility] Comment on above: Performed By: #### C [id number] #### [address] [address] Ur Cannab Scrn Negative Normal NEG = <50 [facility] Comment on above: Performed By: #### C [id number] #### [address] [address] Ur Cocaine Scrn Negative Normal NEG = <300 [facility] Comment on above: Performed By: #### C [id number] #### [address] [address] Ur Methadone Scn Negative Normal NEG = <300 [facility] Comment on above: Performed By: #### C [id number] #### [address] [address] Ur Opiate Scrn Negative Normal NEG = <300 [facility] Comment on above: Performed By: #### C [id number] #### [address] [address] Ur Oxy Screen Negative Normal NEG = <100 [facility] Comment on above: Performed By: #### C [id number] #### [facility] [address] [place] [address] Ur Oxy Scrn Qnt 54 ng/mL Normal <=99 [facility] Comment on above: Performed By: #### C [id number] #### [facility] [address] [place] [address] Ur PCP Scrn Negative Normal NEG = <25 [facility] Comment on above: Performed By: #### C [id number] #### [address] [place] [address] UA pH 5.0 Normal 4.5 - 7.8 [facility] Comment on above: Performed By: #### C [id number] #### [address] [address] UA Spec Grav 1.024 Normal 1.003-1.035 [facility] Comment on above: Performed By: #### C [id number] #### [address] [address] HIV Screenon 11-21-2019 HIV Ag/Ab NONREACTIVE NONREACTIVE [place] Comment on above: No laboratory eviden ce of HIV infection. If acute HIV infection is suspected, consider testing for HIV-1 RNA. HCG, Quantitative, on 11-20-2019 hCG Quant [id number] High <5 IU/L [place] Comment on above: Non-preg premeno <=5 Postmeno <=8 Male <=3 If HCG results do not concur with clinical observations, additional testing to confirm results is recommended. Elevated results not associated with may be found in patients with other diseases such as tumors of the germ cells (testis, ovaries, etc.), bladder, pancreas, stomach, lungs, and liver. Interpretation and review of laboratory results Abnormal [place] Hepatitis C Antibodyon 11-19 Hepatitis C Ab REACTIVE Abnormal NONREACTIVE [place] Comment on above: The hepatitis C [...] Interpretation and review of laboratory results Abnormal [place] TYPE AND SCREENon 0 11-20-2019 ABO/Rh Positive [place] Urine Drug Screen, Comprehen siveon 11-20-2019 Amphetamine Screen, Ur Negative NEGATIVE [facility] Barbiturate Screen, Ur Negative NEGATIVE [facility] Benzodiazepine Screen, Urine Negative NEGATIVE [facility] Buprenorphine Urine Negative NEGATIVE [facility] Cannabinoid Scrn, Ur Negative NEGATIVE [facility], [place] Cocaine Metabolite, Urine Negative NEGATIVE [facility] MDMA, Urine NOT REPORTED NEGATIVE [place] Methadone Screen, Urine Negative NEGATIVE [facility] Methamphetamine, Urine Negative NEGATIVE [facility] Opiates, Urine Negative NEGATIVE [facility] [facility] [place] [place] Oxycodone Screen, Ur Negative NEGATIVE [facility], [place] Phencyclidine, Urine Negative NEGATIVE [facility], [place] Propoxyphene, Urine Negative NEGATIVE [facility] [place] Test Information NOT REPORTED [place] Tricyclic Antidepressants, Urine Negative NEGATIVE [place] Comment on above: Drug screen results are to be used for medical purposes only. All positive results are unconfirmed. Testing for employment or legal uses should be sent to a reference laboratory for confirmation. HCG, Quantitative, on 06-19-2019 hCG Quant [id number] High <5 IU/L [place], [place] Comment on above: Non-preg premeno <=5 Postmeno <=8 Male <=3 If HCG results do not concur with clinical observations, additional testing to confirm results is recommended. Elevated results not associated with may be found in patients with other diseases such as tumors of the germ cells (testis, ovaries, etc.), bladder, pancreas, stomach, lungs, and liver. Interpretation and review of laboratory results Abnormal [place] HIV Screenon 06-19-2019 HIV Ag/Ab NONREACTIVE NONREACTIVE [place] Comment on above: No laboratory eviden ce of HIV infection. If acute HIV infection is suspected, consider testing for HIV-1 RNA. Hepatitis C Antibodyon 06-19 Hepatitis C Ab REACTIVE Abnormal NONREACTIVE [place] Comment on above: The hepatitis C [...] Interpretation and review of laboratory results Abnormal [place] PROFILE Ion 019 Basophils (Bld) [#/Vol] 10*3/uL [place] Basophils/100 WBC (Bld) 1 % 0 - 2 % [place] Differential Type NOT REPORTED [place] Eosinophils (Bld) [#/Vol] 0.09 10*3/uL [place] Eosinophils/100 WBC (Bld) 2 % 1 - 4 % [place] Erythrocyte distribution width (RBC) [Ratio] 15.7 % High 11.8 - 14.4 % [place] Hematocrit (Bld) [Volume fraction] 36.5 % 36.3 - 47.1 % [place] Hemoglobin (Bld) [Mass/Vol] 11.2 g/dL Low 11.9 - 15.1 g/dL [place] Hepatitis B Surface Ag NONREACTIVE NONREACTIVE [place] Immature granulocytes (Bld) [#/Vol] 0 % 0 [place] Immature granulocytes (Bld) [#/Vol] 10*3/uL [place] Interpretation and review of laboratory results Abnormal [place] Lymphocytes (Bld) [#/Vol] 1.98 10*3/uL [place] Lymphocytes/100 WBC (Bld) 46 % High 24 - 43 % [place] MCH (RBC) [Entitic mass] 25.6 pg 25.2 - 33.5 pg [place] MCHC (RBC) [Mass/Vol] 30.7 g/dL 28.4 - 34.8 g/dL [place] MCV (RBC) [Entitic vol] 83.3 fL 82.6 - 102.9 fL [place] Monocytes (Bld) [#/Vol] 0.37 10*3/uL [place] Monocytes/100 WBC (Bld) 9 % 3 - 12 % [place] Platelet mean volume (Bld) [Entitic vol] 11.6 fL 8.1 - 13.5 fL [place] Platelets (Bld) [#/Vol] NOT REPORTED [place] Platelets (Bld) [#/Vol] 196 10*3/uL [place] RBC (Bld) [#/Vol] 4.38 10*6/uL 3.95 - 5.1 1 m/uL [place] RBC morphology finding Nom (Bld) NOT REPORTED [place] Rubella virus IgG Ql (S) 286.1 IU/mL [place] Comment on above: REFERENCE RANGE: <5.0 NON-REACTIVE (non-immune) 5.0 TO 9.9 EQUIVOCAL >=10.0 REACTIVE (immune) Segmented neutrophils/100 WBC (Bld) 42 % 36 - 65 % [place] Segs Absolute 1.75 [place] T. pallidum, IgG NONREACTIVE NONREACTIVE [place] Comment on above: T. pallidum antibodies are not detected. There is no serological evidence of infection with T. pallidum (early primary syphilis cannot be excluded). Retest in 2-4 weeks if syphilis is clinically suspect. WBC (Bld) [#/Vol] 4.2 10*3/uL [place] WBC (Bld) [#/Vol] 0.0 10*3/uL 0.0 per 10 0 WBC [place] WBC Morphology NOT REPORTED [place] TYPE AND SCREENon 1 ABO/Rh Positive [place] Urine Drug Screen, Comprehen siveon 06-19-2019 Amphetamine Screen, Ur Negative NEGATIVE [facility] [place] [place] Barbiturate Screen, Ur Negative NEGATIVE [facility], [place] Benzodiazepine Screen, Urine Negative NEGATIVE [facility] [place] Buprenorphine Urine Negative NEGATIVE [facility] [place] Cannabinoid Scrn, Ur Negative NEGATIVE [facility], [place] Cocaine Metabolite, Urine Negative NEGATIVE [facility] [place] Interpretation and review of laboratory results Abnormal [place] MDMA, Urine NOT REPORTED NEGATIVE [place] Methadone Screen, Urine Negative NEGATIVE [facility] [place] Methamphetamine, Urine Negative NEGATIVE [facility], [place] Opiates, Urine Negative NEGATIVE [facility] [place] Oxycodone Screen, Ur Negative NEGATIVE [facility], [place] Phencyclidine, Urine Negative NEGATIVE [facility], [place] Propoxyphene, Urine Negative NEGATIVE [place] Test Information NOT REPORTED [place] Tricyclic Antidepressants, Urine Positive Abnormal NEGATIVE [place] Comment on above: Drug screen results are to be used for medical purposes only. All positive results are unconfirmed. Testing for employment or legal uses should be sent to a reference laboratory for confirmation. Comprehensive Metabolic Pane perez 05-09-2019 Albumin [Mass/Vol] 4.3 g/dL 3.5 - 5.2 g/dL [place] Albumin/Globulin [Mass ratio] 1.4 {ratio} [place] ALP [Catalytic activity/Vol] 50 U/L 35 - 104 U/L [place] ALT [Catalytic activity/Vol] 9 U/L 5 - 33 U/L [place] Anion gap [Moles/Vol] 8 mmol/L Low 9 - 17 mmol/L [place] AST [Catalytic activity/Vol] 15 U/L <32 [place] Bilirubin Ql (U) 0.31 mg/dL 0.3 - 1.2 mg/dL [place] Bun/Cre Ratio 20 [place] Calcium [Mass/Vol] 9.4 mg/dL 8.6 - 10. 4 mg/dL [place] Chloride [Moles/Vol] 102 mmol/L 98 - 10 7 mmol/L [place] CO2 [Moles/Vol] 28 mmol/L 20 - 31 mmol/L [place] Creatinine [Mass/Vol] 0.92 mg/dL High 0.5 - 0.9 mg/dL [place] GFR >60 >60 mL/min [place] GFR Non- >60 >60 mL/min [place] Glucose [Mass/Vol] 91 mg/dL 70 - 99 mg/dL [place] Interpretation and review of laboratory results Abnormal [place] Potassium [Moles/Vol] 4.3 mmol/L 3.7 - 5.3 mmol/L [place] Protein [Mass/Vol] 7.4 g/dL 6.4 - 8.3 g/dL [place] Sodium [Moles/Vol] 138 mmol/L 135 - 144 mmol/L [place] Urea nitrogen [Mass/Vol] 18 mg/dL 6 - 20 mg/dL [place] Hepatitis Panel, Acuteon HAV IgM IA Qn (S) NONREACTIVE NONREACTIVE [place] Hep B Core Ab, IgM NONREACTIVE NONREACTIVE [place], [place] Hepatitis B Surface Ag NONREACTIVE NONREACTIVE [place] Hepatitis C Ab REACTIVE Abnormal NONREACTIVE [place] Comment on above: The hepatitis C [...] Interpretation and review of laboratory results Abnormal [place] Metabolic Panelon 05-09-2019 GFR/1.73 sq M predicted among non-blacks MDRD (S/P/Bld) [Vol rate/Area] [place] Comment on above: Average GFR for 20-2 9 years old: 116 mL/min/1.73sq m Chronic Kidney Disease: <60 mL/min/1.73sq m Kidney failure: <15 mL/min/1.73sq m eGFR calculated using average adult body mass. Additional eGFR calculator available at: http://www.Karaz.com/multiple_crcl_2012.htm Stage 1: Some kidney damage normal GFR Stage 2: Mild kidney damage GFR 60-89 Stage 3: Moderate kidney damage GFR 30-59 Stage 4: Severe kidney damage GFR 15-29 Stage 5: Severe kidney damage GFR <15 ESRD - chronic treatment by dialysis or transplant Drug Scr, Abuse, Uron 2017 Amphetamine(s),Ur Positive Abnormal NEG [place] Comment on above: Result Comment: (Pos itive cutoff 1000 ng/mL) Performed By: #### D AU ####[address] [address] Barbiturate(s),Ur Negative Normal NEG [place] Comment on above: Result Comment: (Pos itive cutoff 200 ng/mL) Performed By: #### D AU ####[address] [address] Base excess Negative Normal NEG [facility] Comment on above: Result Comment: (Pos itive cutoff 300 ng/mL) Performed By: #### D AU ####[address] [address] Benzodiazepine(s) Negative Normal NEG [place] Comment on above: Result Comment: (Pos itive cutoff 200 ng/mL) Performed By: #### D AU ####[address] [address] Cannabinoid(s),Ur Negative Normal NEG [place] Comment on above: Result Comment: (Pos itive cutoff 50 ng/mL) Performed By: #### D AU ####[address] [address] Interpretive Info Assay provides medic al screening only. The absence of expected drug(s) and/or Normal [facility] Comment on above: Result Comment: meta bolite(s) may indicate diluted or adulterated urine, limitations of testing or timing of collection.Testing for legal purposes should be confirmed by another method. To request confirmation of test result, please call the lab within 7 days of sample submission.Performed at [facility] [address] [place] [address] Performed By: #### D AU ####[address] [address] Opiate(s), Ur Negative Normal NEG [facility] Comment on above: Result Comment: (Pos itive cutoff 300 ng/mL) Performed By: #### D AU ####[address] [address] Oxycodone, Urine Negative Normal NEG [facility] Comment on above: Result Comment: (Pos itive cutoff 100 ng/mL) Performed By: #### D AU ####[address] [place] [address] Phencyclidine, Ur Negative Normal NEG [place] Comment on above: Result Comment: (Pos itive cutoff 25 ng/mL) Performed By: #### D AU ####[address] [place] [address] Urine, methadone presence Negative Normal NEG [facility] Comment on above: Result Comment: (Pos itive cutoff 300 ng/mL) Performed By: #### D AU ####[address] [place] [address] Buprenorphrine, Ur NOT REPORTED Normal NEG [facility] Comment on above: Performed By: #### D AU ####[address] [place] [address] MDMA, Urine NOT REPORTED Normal NEG [facility] Comment on above: Performed By: #### D AU ####[facility] [facility] [place] [address] Methamphetamine, Ur NOT REPORTED Normal NEG [facility] Comment on above: Performed By: #### D AU ####[facility] [place] [address].[place] [address] Propoxyphene,Urine NOT REPORTED Normal NEG [facility] Comment on above: Performed By: #### D AU ####[facility] [place] [address].[place] [address] Urine, tricyclic antidepressants NOT REPORTED Normal NEG [facility] Comment on above: Performed By: #### D AU ####[address] [place] [address] Lipid Profileon 11-05-2017 Cholesterol 137 mg/dL Normal <200 [facility] Comment on above: Result Comment: Chol esterol Guidelines: <200 Desirable 200-240 Borderline >240 Undesirable Performed By: #### L IPR ####[facility] [place] [address].[place] [address] Cholesterol to HDL Ratio 4.3 {ratio} Normal <5 [facility] Comment on above: Performed By: #### L IPR ####[facility] [place] [address].[place] [address] HDL Cholesterol 32 mg/dL Low >40 [facility] Comment on above: Result Comment: HDL Guidelines: <40 Undesirable 40-59 Borderline >59 Desirable Performed By: #### L IPR ####[address] [place] [address] LDL Cholesterol 82 mg/dL Normal 0-130 [facility] Comment on above: Result Comment: LDL Guidelines: <100 Desirable 100-129 Near to/above Desirable 130-159 Borderline >159 UndesirableDirect (measured) LDL and calculated LDL are not interchangeable tests. Performed By: #### L IPR ####[facility] [facility] [place] [address] Triglyceride 113 mg/dL Normal <150 [facility] Comment on above: Result Comment: Trig lyceride Guidelines: <150 Desirable 150- 199 Borderline 200-499 High >499 Very high Based on AHA Guidelines for fasting triglyceride, June 2012.Performed at [facility] [address] [facility] [place] [address] Performed By: #### L IPR ####[facility] [facility] [place] [address] Cholesterol in VLDL mass conc NOT REPORTED Normal 10-16 [facility] Comment on above: Performed By: #### L IPR ####[facility] [facility] [place] [address] Vital Signs Date Time Vital Sign Value Performing Clinician Facility 04-09-2025 10:03-0400 Body weight 83.12 kg Jody UREÑA Work Phone: [facility] 04-09-2025 10:03-0400 Diastolic blood pressure 64 mm[Hg] Jody UREÑA Work Phone: [facility] 04-09-2025 10:03-0400 Systolic blood pressure 112 mm[Hg] Jody UREÑA Work Phone: [facility] 03-11-2025 11:13-0400 Body weight 81.56 kg Yousif Markus DO Work Phone: [facility] 03-11-2025 11:13-0400 Diastolic blood pressure 70 mm[Hg] Yousif Markus DO Work Phone: [facility] 03-11-2025 11:13-0400 Systolic blood pressure 120 mm[Hg] Yousif Markus DO Work Phone: [facility] 01-19-2025 14:18-0400 Body weight 71.67 kg Yousif Markus DO Work Phone: [facility] 01-19-2025 14:18-0400 Diastolic blood pressure 70 mm[Hg] Yousif Markus DO Work Phone: [facility] 01-19-2025 14:18-0400 Systolic blood pressure 112 mm[Hg] Yousif Markus DO Work Phone: [facility] 01-01-2025 15:12-0400 Body weight 70.36 kg Noms Nurse [facility] 01-01-2025 15:12-0400 Diastolic blood pressure 64 mm[Hg] [facility] Nurse [facility] 01-01-2025 15:12-0400 Systolic blood pressure 110 mm[Hg] Nom Nurse [facility] 10-21-2024 07:30-0500 Body temperature 97.7 [degF] PHYSICIAN NO [facility] 10-21-2024 07:30-0500 Diastolic blood pressure 77 mm[Hg] PHYSICIAN NO [facility] 10-21-2024 07:30-0500 Heart rate 85 /min PHYSICIAN NO [facility] 10-21-2024 07:30-0500 Respiratory rate 16 /min PHYSICIAN NO [facility] 10-21-2024 07:30-0500 SaO2% (BldA) [Mass fraction] 98 % PHYSICIAN NO [facility] 10-21-2024 07:30-0500 Systolic blood pressure 120 mm[Hg] PHYSICIAN NO [facility] 10-20-2024 14:43-0500 Body height 167.64 cm PHYSICIAN NO [facility] 10-20-2024 09:00-0500 Body weight 56.2 kg PHYSICIAN NO [facility] 10-17-2024 17:00-0500 Diastolic blood pressure 70 mm[Hg] Rochelle Alvarado MD Work Phone: [facility] 10-17-2024 17:00-0500 Heart rate 81 /min Rochelle Alvarado MD Work Phone: [facility] 10-17-2024 17:00-0500 Respiratory rate 16 /min Rochelle Alvarado MD Work Phone: [facility] 10-17-2024 17:00-0500 SaO2% (BldA) [Mass fraction] 100 % Rochelle Alvarado MD Work Phone: [facility] 10-17-2024 17:00-0500 Systolic blood pressure 115 mm[Hg] Rochelle Alvarado MD Work Phone: [facility] 10-17-2024 12:00-0500 Body temperature 95.7 [degF] Rochelle Alvarado MD Work Phone: [facility] 10-17-2024 06:00-0500 Body weight 56.2 kg Rochelle Alvarado MD Work Phone: [facility] 10-16-2024 16:30-0500 Body height 170.18 cm Rochelle Alvarado MD Work Phone: [facility] 10-15-2024 20:45-0500 Diastolic blood pressure 89 mm[Hg] [facility] 10-15-2024 20:45-0500 Heart rate 101 /min [facility] 10-15-2024 20:45-0500 Mean blood pressure 102 mm[Hg] [facility] 10-15-2024 20:45-0500 Respiratory rate 14 /min [facility] 10-15-2024 20:45-0500 Systolic blood pressure 127 mm[Hg] [facility] 10-15-2024 20:00-0500 Heart rate 89 /min [facility] 10-15-2024 19:57-0500 Diastolic blood pressure 83 mm[Hg] [facility] 10-15-2024 19:57-0500 Heart rate 95 /min [facility] 10-15-2024 19:57-0500 Mean blood pressure 94 mm[Hg] [facility] 10-15-2024 19:57-0500 Respiratory rate 14 /min [facility] 10-15-2024 19:57-0500 SaO2% (BldA) [Mass fraction] 99 % [facility] 10-15-2024 19:57-0500 Systolic blood pressure 115 mm[Hg] [facility] 10-15-2024 19:00-0500 Diastolic blood pressure 85 mm[Hg] [facility] 10-15-2024 19:00-0500 Mean blood pressure 93 mm[Hg] [facility] 10-15-2024 19:00-0500 Systolic blood pressure 109 mm[Hg] [facility] 10-15-2024 18:30-0500 Respiratory rate 16 /min [facility] 10-15-2024 18:30-0500 SaO2% (BldA) [Mass fraction] 99 % [facility] 10-15-2024 17:02-0500 SaO2% (BldA) [Mass fraction] 99 % [facility] 10-15-2024 13:29-0500 Body temperature 97.7 [degF] [facility] 10-15-2024 13:29-0500 Heart rate 99 /min [facility] 10-15-2024 13:14-0500 Body temperature 97.7 [degF] [facility] 10-15-2024 13:14-0500 Heart rate 100 /min [facility] Encounters Encounter Date Encounter Type Care Provider [...] visit 15 minutes Jody UREÑA Work Phone: [facility] Comment on above: Second trimester pre gnancy ([facility]); 25 weeks gestation of ([facility]) Start: 04-09-2025 End: 04-09-2025 ambulatory JODY KIMBLE Not Available Start: 04-01-2025 End: 04-01-2025 ambulatory YOUSIF MARKUS Not Available Start: 03-11-2025 End: 03-11-2025 Bamboo flowsheet Yousif Markus DO Work Phone: [facility] Start: 03-11-2025 End: 03-13-2025 Bamboo flowsheet Yousif Markus DO Work Phone: [facility] Start: 03-11-2025 End: 03-13-2025 Clinisync Result Encounter Yousif Markus DO Work Phone: [facility] External Department Unsolicited Start: 03-11-2025 End: 03-12-2025 External Result Encounter Yousif Markus DO Work Phone: [facility] External Department Unsolicited Start: 03-11-2025 End: 03-11-2025 ambulatory YOUSIF MARKUS Not Available Start: 03-11-2025 End: 03-11-2025 Patient encounter procedure Yousif Markus DO Work Phone: [facility] Healthcare Start: 03-11-2025 End: 03-11-2025 Periodic preventive med est patient 18-39 yrs Yousif Markus DO Work Phone: [facility] Comment on above: Screening, , for anatomic survey ([facility]); Well woman exam with routine gynecological [...] 01-05-2025 Emergency department patient visit FABIAN ROWE [facility] Start: 01-01-2025 End: 01-01-2025 Office outpatient visit 5 minutes [facility] Markus Nurse [facility] Comment on above: GA: 11w1d Start: 01-01-2025 End: 01-01-2025 ambulatory YOUSIF MARKUS Not Available Start: 10-18-2024 Non-patient / Non-visit PHYSICIAN NO [facility] Med OutPt Work Phone: Start: 10-17-2024 End: 10-21-2024 Evaluation and management of inpatient PHYSICIAN NO [facility] C[facility]-1 [facility] Work Phone: Start: 10-16-2024 Non-patient / Non-visit Marc Alvarado MD Work Phone: [facility] Med Out[facility] Work Phone: Start: 10-15-2024 End: 10-17-2024 Evaluation and management of inpatient Rochelle Alvarado MD Work Phone: [facility] Work Phone: Start: 10-15-2024 End: 10-15-2024 Emergency department patient visit Jayjay Solo nayan [facility] Start: 07-21-2024 Registered Recurring Rochelle mansfield MD Work Phone: [facility] Start: 07-21-2024 ambulatory Rochelle Alvarado Facility: [facility] Start: 11-26-2023 End: 11-27-2023 ambulatory [facility] Start: 11-05-2023 End: 11-05-2023 ambulatory Haydee Gaytan Facility:[facility] Start: 10-30-2023 Clinisync Result Encounter Yousif Aparicio DO Work Phone: [facility] External Department Unsolicited Start: 10-30-2023 Clinisync Result Encounter Yousif Aparicio DO Work Phone: [facility] External Department Unsolicited Start: 10-29-2023 End: 10-29-2023 ambulatory MD Rochelle Alvarado Work Phone: [facility] Work Phone: Start: 10-29-2023 End: 10-29-2023 Departed Referred MD Rochelle Alvarado Work Phone: [facility] Start: 12-21-2022 End: 12-21-2022 ambulatory IVAN CAMEJO . Facility:[facility] Start: 11-29-2022 End: 11-29-[address] RODO MENCHACA Facility:[facility] Start: 10-25-2022 ambulatory [facility] Facility:[facility] Start: 10-11-2022 End: 10-11-[address] CHRISTINE SÁNCHEZ Facility:[facility] Start: 09-12-2022 End: 09-13-[address] YOUSIF APARICIO . Facility:[facility] Start: 08-19-2022 Encounter for preprocedural laboratory examination DR YOUSIF APARICIO . [facility] Start: 08-18-2022 End: 08-18-[address] YOUSIF [...] 03-17-2020 Emergency department patient visit Lima Richards [facility] Facility[facility] Start: 11-20-2019 End: 11-20-2019 Subsequent hospital [...] Evaluation and management of inpatient ANGELO SPICER [facility] Procedures Date Procedure Procedure Detail [...] SPICER Start: 11-05-2017 Lipid panel ANGELO BARRIOS [employer] Start: 11-05-2017 DIET GENERAL ANGELO BARRIOS [employer] Start: 11-05-2017 FULL CODE ANGELO BARRIOS [employer] Start: 11-05-2017 IP CONSULT TO HISTOR Y AND PHYSICAL ANGELO BARRIOSPTA Start: 11-05-2017 MISCELLANEOUS NURSIN G CARE ORDER (SPECIFY) ANGELO SPICER Start: 11-05-2017 OFF UNIT PRIVILEGES DONNA SPICER Start: 11-05-2017 PATIENT STATUS (DIRECT) ANGELO SPICER Plan of Treatment Date Care Activity Detail Author Start: 03-11-2028 Screening for malign ant neoplasm of cervix [facility] Healthcare Start: 05-18-2025 Influenza vaccination Influenza Vacc ine (#1) [facility] Start: 05-06-2025 End: 05-06-2025 Patient encounter procedure 05/06/2025 11:30 AM EDT Office Visit CHARBEL John OBGINAN [address] [place] [phone] Yousif Aparicio DO [address] [place], [place] [address] Arrived CHARBEL John OBGINAN Comment on above: Arrived Start: 04-09-2025 End: 04-09-2025 Patient encounter procedure 04/09/2025 9:50 AM EDT Routine [facility] [address] [place] [phone] Jody Kimble, PA [address] [place], [place] [address] Arrived [facility] Comment on above: Arrived Start: 04-08-2025 End: 04-08-2025 Patient encounter procedure 04/08/2025 11:20 AM EDT Routine [facility] [address] [place] [phone] Jody Kimble, PA [address] [facility] [address] [place] [address] [facility] Start: 03-25-2025 End: 03-25-2025 Professional / ancillary services management 03/25/2025 11:00 AM EDT Ancillary Procedure [facility] [address] [place] [place] [phone] [facility] Start: 03-11-2025 End: 04-10-2025 Alpha fetoprotein, maternal Alpha fetoprotein, maternal Lab Routine Screening, , for anatomic survey ([facility]) 21 weeks gestation of ([facility]) Second trimester ([facility]) Expected: 03/11/2025 (Approximate), Expires: 04/10/2025 [facility] Comment on above: Expected: 03/11/2025 (Approximate), Expires: 04/10/2025 Start: 03-11-2025 End: 06-11-2025 US for US OB 14+ weeks anatomy scan Imaging Routine Screening, , for anatomic survey ([facility]) Expected: 03/11/2025, Expires: 06/11/2025 [facility] Comment on above: Expected: 03/11/2025 , Expires: 06/11/2025 Start: 02-16-2025 End: 02-16-2025 Patient encounter procedure 02/16/2025 3:30 PM EDT Routine [facility] [address] [place] [phone] Jody Kimble PA [address] [facility] [address] [place] [address] [facility] Start: 01-19-2025 End: 01-19-2026 CBC panel - Blood by Automated count CBC Lab Routine Diabetes mellitus screening Expected: 01/19/2025 (Approximate), Expires: 01/19/2026 [facility] Work Phone: Comment on above: Expected: 01/19/2025 (Approximate), Expires: 01/19/2026 Start: 01-19-2025 End: 01-19-2026 Measurement of glucose 1 hour after glucose challenge for glucose tolerance test Glucose tolerance, 1 hour Lab Routine Diabetes mellitus screening Expected: 01/19/2025 (Approximate), Expires: 01/19/2026 [facility] Comment on above: Expected: 01/19/2025 (Approximate), Expires: 01/19/2026 Start: 01-19-2025 End: 01-19-2025 Patient encounter procedure 01/19/2025 2:00 PM EDT Routine [facility] [address] [place] [address] Yousif Aparicio, DO [address] [place] [address] [facility] Start: 01-01-2025 End: 01-01-2026 ABO/Rh ABO/Rh Lab Routine Missed menses , unspecified gestational age Expected: 01/01/2025 (Approximate), Expires: 01/01/2026 [facility] Comment on above: Expected: 01/01/2025 (Approximate), Expires: 01/01/2026 Start: 01-01-2025 End: 01-01-2026 Blood type and Indirect antibody screen panel - Blood Type and screen Lab Routine Missed menses , unspecified gestational age Expected: 01/01/2025 (Approximate), Expires: 01/01/2026 [facility] Work Phone: Comment on above: Expected: 01/01/2025 (Approximate), Expires: 01/01/2026 Start: 01-01-2025 End: 01-01-2026 Drugs of abuse panel - Urine by Screen method Rapid drug screen, urine Lab Routine , unspecified gestational age Encounter for supervision of normal first in first trimester Expected: 01/01/2025 (Approximate), Expires: 01/01/2026 [facility] Comment on above: Expected: 01/01/2025 (Approximate), Expires: 01/01/2026 Start: 10-21-2024 [facility] Start: 10-17-2024 Hospital admission [facility] Start: 10-17-2024 [facility] Start: 10-17-2024 [facility] Start: 10-17-2024 [facility] Start: 10-16-2024 [facility] Start: 10-16-2024 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 [facility] Start: 10-15-2024 Referral to psychiatrist [facility] Start: 10-15-2024 Referral to neurologist [facility] Start: 10-15-2024 Hospital admission [facility] Start: 01-12-2024 Screening for malign ant neoplasm of cervix HPV/Cotest [facility] Start: 12-12-2021 End: 02-11-2022 CBC W Auto Differential panel - Blood CBC + DIFF Lab Routine Iron deficiency anemia, unspecified iron deficiency anemia type Expected: 12/12/2021, Expires: 02/11/2022 [facility] Work Phone: Comment on above: Expected: 12/12/2021 , Expires: 02/11/2022 Start: 05-18-2021 Influenza vaccination INFLUENZA (#1) [facility] Start: 06-26-2020 Cervical cancer screen Cervical canc er screen [place], [place] Comment on above: Postponed from 01/11 (Not Indicated) Start: 06-26-2020 Screening for malign ant neoplasm of cervix Cervical cancer screen [place], [place] Comment on above: Postponed from 01/11 (Not Indicated) Start: 05-18-2020 Influenza vaccination Flu vaccine (# 1) [place] Start: 11-21-2019 End: 11-21-2019 Ancillary Procedure 11/21/2019 Ancillary Procedure Obstetrics and Gynecology [facility] Start: 06-26-2019 End: 06-26-2019 Routine 06/26/2019 Routine Obstetrics and Gynecology Georgette Leung APRN - BRIAN [address] [place] [address] [phone] [facility] 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 Start: 05-18-2019 Influenza vaccination Flu vaccine (# 1) [place] Start: 2015 Cervical cancer screen Cervical canc er screen [place], [place] Start: 2015 PAP TESTING PAP TESTING [facility] Start: 2013 DTaP/Tdap/Td vaccine (1 - Tdap) DTaP/Tdap/Td vaccine (1 - Tdap) [place] Start: 2013 Urine microalbumin profile DTAP,TDAP,TD (1 - Tdap) [facility] Start: 01-12-2012 HEPATITIS C SCREENING HEPATITIS C SC REENING [facility] Start: 01-12-2012 HIV SCREENING HIV SCREENING [facility] Start: 2009 HPV vaccine (1 - Fem larissa 3-dose series) HPV vaccine (1 - Female 3-dose series) [place] Start: 2007 Varicella Vaccine (1 of 2 - 13+ 2-dose series) Varicella Vaccine (1 of 2 - 13+ 2-dose series) [place] Start: 2006 Adult depression screening assessment DEPRESSION SCREENING [facility] Start: 2005 DTaP/Tdap/Td vaccine (1 - Tdap) DTaP/Tdap/Td vaccine (1 - Tdap) [place] Start: 2005 HPV vaccine (1 - 2-d ose series) HPV vaccine (1 - 2-dose series) [place] Start: 2005 HPV vaccine (1 - Fem larissa 2-dose series) HPV vaccine (1 - Female 2-dose series) [place] Start: 01-12-2000 Pneumococcal 0-64 ye ars Vaccine (1 of 1 - PPSV23) Pneumococcal 0-64 years Vaccine (1 of 1 - PPSV23) [place] Start: 1999 COVID-19 VACCINE (1) COVID-19 VACCIN E (1) [facility] Start: 1995 Varicella vaccine (1 of 2 - 2-dose childhood series) Varicella vaccine (1 of 2 - 2-dose childhood series) [place] End: 11-20-2019 Bacteria identified Cx Nom (U) Urine Culture Microbiology Routine Amenorrhea Positive urine test Encounter for supervision of normal in first trimester, unspecified 1 Occurrences starting 11/20/2019 until 11/20/2019 [place] Comment on above: 1 Occurrences starti ng 11/20/2019 until 11/20/2019 Bacteria identified Cx Nom (U) [place] End: 06-19-2019 Bacteria identified Cx Nom (U) Urine Culture Microbiology Routine Amenorrhea Positive urine test Encounter for supervision of normal in first trimester, unspecified 1 Occurrences starting 06/19/2019 until 06/19/2019 [place] Comment on above: 1 Occurrences starti ng 06/19/2019 until 06/19/2019 Bacteria identified in Urine by Culture Urine culture Microbiology Routine Missed menses Ordered: 01/01/2025 [facility] Comment on above: Ordered: 01/01/2025 End: 11-20-2019 C.trachomatis N.gonorrhoeae DNA, Urine C.trachomatis N.gonorrhoeae DNA, Urine Microbiology Routine Amenorrhea Positive urine test Encounter for supervision of normal in first trimester, unspecified 1 Occurrences starting 11/20/2019 until 11/20/2019 [place] Comment on above: 1 Occurrences starti ng 11/20/2019 until 11/20/2019 C.trachomatis N.gonorrhoeae DNA, Urine [place] End: 06-19-2019 C.trachomatis N.gonorrhoeae DNA, Urine C.trachomatis N.gonorrhoeae DNA, Urine Microbiology Routine Amenorrhea Positive urine test Encounter for supervision of normal in first trimester, unspecified 1 Occurrences starting 06/19/2019 until 06/19/2019 [place] Comment on above: 1 Occurrences starti ng 06/19/2019 until 06/19/2019 CBC W Auto Different ial panel - Blood CBC and differential Lab Routine Missed menses , unspecified gestational age Ordered: 01/01/2025 [facility] Comment on above: Ordered: 01/01/2025 CHLAMYDIA TRACHOMATI S (GENITO/STI) CHLAMYDIA TRACHOMATIS (GENITO/STI) Lab Routine Exposure to STD Ordered: 03/11/2025 [facility] Comment on above: Ordered: 03/11/2025 Cytology Cervical or vaginal smear or scraping study Pap Smear Pathology and Cytology Routine Well woman exam with routine gynecological exam Ordered: 03/11/2025 [facility] Comment on above: Ordered: 03/11/2025 Hemoglobin A1c/Hemoglobin.total in Blood Hemoglobin A1c Lab Routine Missed menses , unspecified gestational age Ordered: 01/01/2025 [facility] Comment on above: Ordered: 01/01/2025 Hepatitis A virus antibody, IgM type [facility] Hepatitis B core antibody measurement, IgM type [facility] Hepatitis B virus surface Ag [Presence] in Serum or Plasma by Immunoassay [facility] Hepatitis B virus surface Ag [Presence] in Serum or Plasma by Immunoassay Hepatitis B surface antigen Lab Routine Missed menses , unspecified gestational age Ordered: 01/01/2025 [facility] Comment on above: Ordered: 01/01/2025 End: 04-26-2020 Hepatitis C RNA, quantitative, PCR Hepatitis C RNA, quantitative, PCR Lab Routine Once for 1 Occurrences starting 04/26/2020 until 04/26/2020 [facility] [place] Comment on above: Once for 1 Occurrenc es starting 04/26/2020 until 04/26/2020 Hepatitis C RNA, quantitative, PCR Hepatitis C RNA, quantitative, PCR Lab Routine 04/26/2020 7:30 AM EDT [place] Hepatitis C virus Ab [Presence] in Serum or Plasma by Immunoassay Hepatitis C antibody Lab Routine Missed menses , unspecified gestational age Ordered: 01/01/2025 [facility] Comment on above: Ordered: 01/01/2025 Hepatitis C virus Ig G Ab [Presence] in Serum or Plasma by Immunoassay [facility] HIV 1+2 Ab+HIV1 p24 Ag [Presence] in Serum or Plasma by Immunoassay [facility] End: 05-09-2019 HIV Screen HIV Screen Lab Routine Once for 1 Occurrences starting 05/09/2019 until 05/09/2019 [facility] [place] Comment on above: Once for 1 Occurrenc es starting 05/09/2019 until 05/09/2019 HIV Screen HIV Screen Lab R outine 05/09/2019 2:53 PM EDT [place] HIV-1/HIV-2 antigen/antibody combination immunoassay HIV-1 and HIV-2 antibodies Lab Routine Missed menses , unspecified gestational age Ordered: 01/01/2025 [facility] Comment on above: Ordered: 01/01/2025 Homogenous nuclear A b pattern [Titer] in Serum [facility] Human papilloma viru s DNA [Presence] in Unspecified specimen by Probe with amplification HPV DNA probe, amplified Microbiology Routine Well woman exam with routine gynecological exam Ordered: 03/11/2025 [facility] Comment on above: Ordered: 03/11/2025 Neisseria gonorrhoea e DNA [Presence] in Unspecified specimen by ELMO with probe detection Neisseria gonorrhea DNA probe, direct Lab Routine Exposure to STD Ordered: 03/11/2025 [facility] Comment on above: Ordered: 03/11/2025 Nuclear Ab [Titer] i n Serum [facility] Patient Education Know your Meds [facility] Work Phone: Patient referral [facility] Work Phone: PROFILE I PROF ILE I Lab Routine Amenorrhea Positive urine test Encounter for supervision of normal in first trimester, unspecified 11/20/2019 12:26 PM [place] Reagin Ab [Presence] in Serum by RPR [facility] Reagin Ab [Presence] in Serum by RPR RPR Lab Routine Missed menses , unspecified gestational age Ordered: 01/01/2025 [facility] Comment on above: Ordered: 01/01/2025 Rubella antibody, IgG Rubella an tibody, IgG Lab Routine Missed menses , unspecified gestational age Ordered: 01/01/2025 [facility] Comment on above: Ordered: 01/01/2025 SURESWAB(R) ADVANCED VAGINITIS PLUS, TMA SURESWAB(R) ADVANCED VAGINITIS PLUS, TMA Pathology and Cytology Routine Vaginal discharge Ordered: 03/11/2025 [facility] Work Phone: Comment on above: Ordered: 03/11/2025 [facility] Payers Date Payer Category Payer Self-pay [id number] 2023 Medicaid [employer] [place] [id number] 2023-Present [address] [place] [address] [id number] 2023 Medicaid (Managed Care) [employer] [id number] 2020 Medicaid [employer] [employer] [employer] [id number] 2020-Present [phone] [address] [place] [address] Medicaid [id number] 2020 Unknown 2016 Unknown [facility] HE[facility] PLAN [facility] PLAN xxxxxxxxxxxx 2016-Present [phone] [place] [id number] xxxxxxxxxxxx [id number]. [id number] 1994 Unknown [id number] 2.16.840.1.126320.3.579.2. 196 1994 Unknown [id number] 2.16.840.1.100138.3.579.2. 593 1994 Unknown [id number] 2.16.840.1.598728.3.579.2. 593 1994 Unknown [id number] 2.16.840.1.206562.3.579.2. 593 1994 Unknown [id number] 2.16.840.1.994056.3.579.2. 593 1994 Unknown [id number] 2.16.840.1.364318.3.579.2. 593 1994 Unknown [id number] 2.16.840.1.804531.3.579.2. 593 1994 Unknown [id number] 2.16.840.1.872481.3.579.2. 593 1994 Unknown [id number] 2.16.840.1.712947.3.579.2. 593 1994 Unknown [id number] 2.16.840.1.720486.3.579.2. 593 1994 Unknown [id number] 2.16.840.1.362347.3.579.2. 593 1994 Unknown [id number] 2.16.840.1.501847.3.579.2. 173 1994 Unknown [id number] 2.16.840.1.633640.3.579.2. 727 1994 Unknown [id number] 2.16.840.1.799173.3.579.2. 727 1994 Unknown [id number] 2.16.840.1.367728.3.579.2. 727 1994 Unknown [id number] 2.16.840.1.735376.3.579.2. 727 1994 Unknown [id number] 2.16.840.1.762446.3.579.2. 727 1994 Unknown [id number] 2.16.840.1.614876.3.579.2. 1286 1994 Unknown [id number] 2.16.840.1.341432.3.579.2. 1259 1994 Unknown [id number] 2.16.840.1.500988.3.579.2. 1259 1994 Unknown [id number] 2.16.840.1.633273.3.579.2. 1259 1994 Unknown [id number] 2.16.840.1.290526.3.579.2. 1259 1994 Unknown [id number] 2.16.840.1.047303.3.579.2. 1259 1994 Unknown [id number] 2.16.840.1.631757.3.579.2. 1259 1994 Unknown [id number] 2.16.840.1.292297.3.579.2. 1259 1959 Unknown [id number] Unknown Other1 (STD) [id number] Unknown [id number] 2.16.840.1.023279.3.579.2. 531 Unknown [id number] 2.16.840.1.330168.3.579.2. 531 Unknown [id number] 2.16.840.1.704585.3.579.2. 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) [place] Start: 05-01-2019 [place], [place] Start: 11-20-2019 End: 05-02-2023 Tobacco use and exposure Never used [place] Start: 10-28-2021 End: 11-08-2021 Alcohol intake Ex-drinker (finding) [facility] Start: 10-09-2023 End: 03-11-2025 Alcohol intake Lifetime non-drinker (finding) [facility] Start: 11-04-2017 Tobacco smoking stat us ILIS Ex-smoker (finding) [facility] Start: 1995 Sex Assigned At Female F [facility] Tobacco [facility] Comment on above: denies Tobacco smoking status No Smokin g Status Entered [facility] Start: 10-16-2024 End: 10-18-2024 Tobacco smoking status NHIS Unknown if ever smoked [facility] Start: 10-17-2024 End: 10-21-2024 Sex Female (finding) [facility] NEGATED: Highlighted row [facility] Goals Date Patient Goal Desired Activity /State Functional Status Date Assessment Result Facility 01-20-2025 Patient Health [facility] ionnaire 2 item (PHQ-2) [Reported] [facility] 10-21-2024 Functional status Patient at Baseline [facility] Work Phone: 10-17-2024 Functional status Patient at Baseline [facility] Work Phone: 10-15-2024 Functional Status N/A [facility] Mental Status Date Assessment Result Facility 10-21-2024 Cognitive function Cognitive Sta tus Patient at Baseline [facility] Work Phone: 10-17-2024 Cognitive function Cognitive Sta tus Patient at Baseline [facility] Work Phone: Clinical Notes 11-08-2021 to [...] Medical History: Diagnosis Date Anxiety Bipolar disorder ([facility]) Depression Fibromyalgia Gestational diabetes ([facility]) Insomnia Irritable bowel syndrome with constipation Opioid abuse ([facility]) Tobacco user HISTORY PAST MEDICAL HISTORY SOCIAL HISTORY Past Medical History: Diagnosis Date Anxiety Bipolar disorder ([facility]) Depression Fibromyalgia Gestational diabetes ([facility]) Insomnia Irritable bowel syndrome with constipation Opioid abuse ([facility]) Tobacco user Social History Tobacco Use Smoking [...] ASSESSMENT & PLAN ICD-10-CM 1. Second trimester ([facility]) Z34.92 POCT urinalysis dipstick manually resulted 2. 25 weeks gestation of ([facility]) Z3A.25 Return OB: Patient presents today [...] of: ADELITA Lim documented in this encounter [facility] 03-11-2025 History of Presen t illness Narrative [...] Medical History: Diagnosis Date Anxiety Bipolar disorder ([facility]) Depression Fibromyalgia Gestational diabetes ([facility]) Insomnia Irritable bowel syndrome with constipation Opioid abuse ([facility]) Tobacco user HISTORY PAST MEDICAL HISTORY SOCIAL HISTORY Past Medical History: Diagnosis Date Anxiety Bipolar disorder ([facility]) Depression Fibromyalgia Gestational diabetes ([facility]) Insomnia Irritable bowel syndrome with constipation Opioid abuse ([facility]) Tobacco user Social History Tobacco Use Smoking [...] nursing note reviewed. Exam conducted with a visitor services information assistant present. Vitals: There is no height or weight on file to calculate BMI. BP: 120/70 Patient's last menstrual period was 10/21/2024 (exact date). ASSESSMENT & PLAN ICD-10-CM 1. Screening, , for anatomic survey ([facility]) Z36.89 US OB 14+ weeks anatomy scan Alpha fetoprotein, maternal US OB 14+ weeks anatomy scan Alpha fetoprotein, maternal 2. Well woman exam with routine gynecological exam Z01.419 Pap Smear HPV DNA probe, amplified 3. Exposure to STD Z20.2 CHLAMYDIA TRACHOMATIS (GENITO/STI) Neisseria gonorrhea DNA probe, direct 4. Vaginal discharge N89.8 SURESWAB(R) ADVANCED VAGINITIS PLUS, TMA 5. 21 weeks gestation of ([facility]) Z3A.21 POCT urinalysis dipstick manually resulted Alpha fetoprotein, maternal Alpha fetoprotein, maternal 6. Second trimester ([facility]) Z34.92 POCT urinalysis dipstick manually resulted [...] Yousif Aparicio DO documented in this encounter [facility] 01-19-2025 History of Presen t illness Narrative [...] nursing note reviewed. Exam conducted with a visitor services information assistant present. Vitals: There is no height [...] Yousif Aparicio DO documented in this encounter [facility] 01-01-2025 History of Presen t illness Narrative [...] History: Diagnosis Date Anxiety Bipolar disorder Depression ([facility]) Fibromyalgia Gestational diabetes Insomnia Irritable bowel syndrome [...] or undercooked meat, and stay away from [facility]. Patient has also been advised to [...] Anne-Marie Mcleod MA documented in this encounter [facility] 10-20-2024 Progress note Note Date/Time October 20, 2024 3:09pm [facility] [address] [place] [address] Psychiatry Progress Note Signed Patient: Noe Duran MR#: [id number] : 1995 Acct:[id number] Age/Sex: 29 / F Adm Date: 5 Loc: 1S Room: [address] [place] [address] Type : ADM IN Attending Dr: Dane [...] SI. Documented By: Edil Douglass MD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
[2025-05-08 11:05] LABS: Ferritin 2.0 ng/mL (8.0-252.0)
[2025-05-09 04:07] LABS: Transferrin 435 mg/dL (192-364)
== END 2025-05-08 08:44 | disposition home or self-care (01) ==
LOC: LAB 08:44
PROVIDERS: Visit Provider Obstetrics & Gynecology
DX: Z13.1 Encounter for screening for diabetes mellitus (principal); E61.1 Iron deficiency; R42 Dizziness and giddiness
CPT/HCPCS: 36415; 82728; 82950; 84466; 85025

== ENCOUNTER 2025-05-21 13:51 | Outpatient (REF) | payer OTHER, SELFPAY ==
--- OUTSIDE RECORDS SUMMARY | 2025-01-20 11:15 | XMS_ITS ---
Author Organization [facility] Servic es Address [address] [place] [address] Care Team Providers Care Metal Smelter Name Role Phone Jennie Harris Primary Care Provider Prisca Moss Unavailable [phone] Jamila Winter Unavailable REASON FOR VISIT MEDICATION QUESTIONS PT IS Encounters Encounter Location Date Provider Diagnosis [address] [place] [address] 01/20/2025 Jamila Winter Plan Of Treatment No Information Progress Notes * NOE ERVINDOB: 4 (30 yo F)Acc No.[id number]:01/20/2025 Progress Notes Patient: Lorrie MONTESMICHAEL NOE Provider: Lorrie Choudhary CNP :1995 A ge:30 Y S ex:Female Date:01/20/2025 Address:[address] [place], [place] [id number] Pcp:Jennie Harris Subjective: * Chief Complaints: * 1 . MEDICATION QUESTIONS PT IS . * Medical History: Objective: * Vitals: Assessment: Plan: * Treatment: * Images: * Electronic signature of MASSIEL Forde on 05/21/2025 at 01:53 PM EDT Sign off status: Pending * Provider: Lorrie Choudhary CNP Date: 0 01/20/2025 Generated for Oleksandr stern/Chris/Jorge Aitting on: 0 05/21/2025 01:53 PM EDT
--- OUTSIDE RECORDS SUMMARY | 2025-01-26 09:45 | XMS_ITS ---
Author Organization [facility] Serv[facility] es Address [address] [facility] [place] [address] Care Team Providers Care Sex Therapist Name Role Phone Jennie Harris Primary Care Provider Prisca Moss Unavailable [phone] Marla Edwards Unavailable [phone] REASON FOR VISIT MEDICATION QUESTIONS PT IS Encounters Encounter Location Date Provider Diagnosis [facility] [address] [place] [address] 01/26/2025 Marla Edwards Plan Of Treatment No Information Progress Notes * NOE ERVINDOB: 4 (30 yo F)Acc No.[id number]:01/26/2025 Progress Notes Patient: Lorrie ANGLIN NOE Appointment Provider: Lorrie WALSH DO :1995 A ge:30 Y S ex:Female Date:01/26/2025 Address:[address] [place], [place] [id number] Pcp:Jennie Harris Subjective: * Chief Complaints: * 1 . MEDICATION QUESTIONS PT IS . * Medical History: Objective: * Vitals: Assessment: Plan: * Treatment: * Images: * Electronic signature of Js Edwards DO on 05/21/2025 at 01:53 PM EDT Sign off status: Pending * Appointment Provider: Lorrie WALSH DO Date: 0 01/26/2025 Generated for Oleksandr stern/Chris/Robles on: 0 05/21/2025 01:53 PM EDT
--- OUTSIDE RECORDS SUMMARY | 2025-02-11 09:30 | XMS_ITS ---
Author Organization [facility] es Address [address] [facility] [place] [address] Care Team Providers Care Finisher Special Stocks Name Role Phone Jennie Harris Primary Care Provider [phone] Kaylijacqui Prisca Unavailable [phone] REASON FOR VISIT madeleine prisca Encounters Encounter Location Date Provider Diagnosis [address] [place] [address] 02/11/2025 Jennie Harris Plan Of Treatment No Information Progress Notes * NOE ERVINDOB: 4 (30 yo F)Acc No.[id number]:02/11/2025 Progress Notes Patient: NOE BOSTON Provider: JUANI Martinez :1995 A ge:30 Y S ex:Female Date:02/11/2025 Address:[address] [place], [place] [id number] Subjective: * Chief Complaints: * 1 . Madeleine prisca. * Medical History: Objective: * Vitals: Assessment: Plan: * Treatment: * Images: * Electronic signature of Tessa Harris CNP on 05/21/2025 at 01:54 PM EDT Sign off status: Pending * Provider: JUANI Martinez Date: 0 02/11/2025 Generated for Printi ng/Faxing/eTransmitting on: 0 05/21/2025 01:54 PM EDT
--- OUTSIDE RECORDS SUMMARY | 2025-05-07 09:15 | XMS_ITS ---
Author Organization [facility] Serv[facility] es Address [address] [facility] [place] [address] Care Team Providers Care Control Officer Manager Name Role Phone Jennie Harris Primary Care Provider TiffanierenettaPrisca [phone] REASON FOR VISIT vomiting/diarrhea while Encounters Encounter Location Date Provider Diagnosis [address] [place] [address] 05/07/2025 Jennie Harris Plan Of Treatment No Information Progress Notes * ARCADIO NOEDOB: 4 (30 yo F)Acc No.[id number]:05/07/2025 Progress Notes Patient: NOE BOSTON Provider: JUANI Martinez :1995 A ge:30 Y S ex:Female Date:05/07/2025 Address:[address] [place], [place] [address] Subjective: * Chief Complaints: * 1 . Vomiting/diarrhea while . * Medical History: Objective: * Vitals: Assessment: Plan: * Treatment: * Images: * Electronic signature of Tessa Harris CNP on 05/21/2025 at 01:53 PM EDT Sign off status: Pending * Provider: JUANI Martinez Date: 0 05/07/2025 Generated for Printi leena/Fabrianna/eTransmitting on: 0 05/21/2025 01:53 PM EDT
--- OUTSIDE RECORDS SUMMARY | 2025-05-20 09:30 | XMS_ITS | Encounter Summary ---
Author Organization [facility] Address [address] [place] [address] Care Team Providers Care Osteologist Name Role Phone Unavailable Primary Care Provider Unavailabl e Encounter Details Date Type Department Care Team (Latest Contact Info) Description 05/20/2025 9:30 AM EDT Ancillary Procedure [facility] [address] [place] [address] size inconsistent with dates ([facility]) Social History Tobacco Use Types Packs/Day Years Used Date Smoking Tobacco: Never Smokeless Tobacco: Never Alcohol Use Standard Drinks/Week Comments Never 0 (1 standard drink = 0.6 oz pur e alcohol) PHQ-2 Answer Date Recorded Patient Health Questionnaire-2 Score 0 05/14/2025 Estimated Date of Delivery Comme nts Yes 07/22/2025 Based on Ultraso und Sex and Gender Information Value Date Recorded Sex Assigned at Not on file Legal Sex Female 8:06 PM EDT Gender Identity Not on file Sexual Orientation Not on file documented as of this encounter Plan of Treatment Upcoming Encounters Date Type Department Care Team (Late st Contact Info) Description 06/03/2025 11:30 AM EDT Routine [facility] [address] [place] [address] Yousif Aparicio DO [address] [place], [place] [id number] documented as of this encounter Procedures Procedure Name Priority Date/Time Associated Diagnosis Comments US OB FOLLOW UP TRANSABDOMINAL APPROACH Routine 05/20/2025 10:01 AM EDT size inconsistent with dates ([facility]) documented in this encounter Results * US OB follow up transabdominal approach (05/20/2025 10:01 AM EDT) Anatomical Region Laterality Modality Body Ultrasound 05/20/2025 3:16 PM EDT Impressions 05/21/2025 7:33 AM EDT 1. Single, live intrauterine , current sonographic age of 31 weeks and days, with an estimated date of delivery of July 19, 2025. 2. Compared with the prior examination of April 01, 2025 deliver at that time was July 21, 2025 and weight by percentile was 50.1% * Estimated Weight (g) by Percentile is based upon an accurate estimated age based on last menstrual period. TRANSCRIBED BY: ELECTRONICALLY SIGNED BY: Kobe Sotelo MD Narrative 05/21/2025 7:33 AM EDT FINDINGS: Comparison made with prior examination of April 01, 2025.. A single, live intrauterine is present with normal cardiac rate of 168 beats per minute. Normal activity and amniotic fluid volume. Amniotic fluid index is 9.6 cm. Morphology is grossly normal. The current sonographic age is 31 weeks and 3 days, based on the following measurements: BPD 7.8 cm ( 31 weeks,1 days) Head Circumference 28.7cm ( 31 weeks, 4 days) Abdominal Circumference 28.1cm ( 32 weeks, 1 days) Femur Length 6.cm ( 31weeks,0 days) Presentation Cephalic Weight (g) by Percentile 60.9% * These measurements result in an estimated date of delivery of July 19, 2025. The current estimated weight is 1813 grams (4 pound, 0 ounces). Procedure Note Kobe Sotelo MD - 05/21/2025 FINDINGS: Comparison made with prior examination of April 01, 2025.. A single, live intrauterine is present with normal cardiacrate of 168 beats per minute. Normal activity and amniotic fluidvolume. Amniotic fluid index is 9.6 cm. Morphology is grossly normal.The current sonographic age is 31 weeks and 3 days, based on thefollowing measurements: BPD 7.8 cm ( 31 weeks,1 days) Head Circumference 28.7cm ( 31 weeks, 4 days) Abdominal Circumference 28.1cm ( 32 weeks, 1 days) Femur Length 6.cm ( 31weeks,0 days) Presentation Cephalic Weight (g) by Percentile 60.9% * These measurements result in an estimated date of delivery of July. The current estimated weight is 1813 grams (4 pound, 0ounces). IMPRESSION: 1. Single, live intrauterine , current sonographic age of 31weeks and days, with an estimated date of delivery of July 19, 2025. 2. Compared with the prior examination of April 01, 2025 deliver at thattime was July 21, 2025 and weight by percentile was 50.1% * Estimated Weight (g) by Percentile is based upon an accurateestimated age based on last menstrual period. TRANSCRIBED BY: ELECTRONICALLY SIGNED BY: Kobe Sotelo MD us Yousif Aparicio DO IMG OB US PROCEDURES Final Resul t documented in this encounter Visit Diagnoses Diagnosis size inconsistent with dates ([facility]) documented in this encounter
--- OUTSIDE RECORDS SUMMARY | 2025-05-20 09:50 | XMS_ITS | Encounter Summary ---
Author Organization [facility] Address [address] [place] [address] Care Team Providers Care Pasteurizer Helper Name Role Phone Unavailable Primary Care Provider Unavailabl e Reason for Visit * Reason Comments Routine Visit Encounter Details Date Type Department Care Team (Late st Contact Info) Description 05/20/2025 9:50 AM EDT Routine [facility] [address] [place] [address] Violet Woody, FITTING ROOM INSPECTOR [address] [facility] [address] [place] [address] Diarrhea, unspecified type (Primary Dx); Third trimester ([facility]); 31 weeks gestation of ([facility]); Nausea and vomiting in ([facility]) Social History Tobacco Use [...] Sign Reading Time Taken Comments Blood Pressure 112/70 05/20/2025 10:14 AM EDT Pulse - - Temperature - - Respiratory Rate - - Oxygen Saturation - - Inhaled Oxygen Concentration - - Weight 85.9 kg (189 lb 6.4 oz) 05/20/2025 10:14 AM EDT Height - - Body Mass Index - - documented in this encounter Progress Notes * Violet Woody NP - 05/20/2025 9:50 AM EDT Reason for Appointment: Patient ID: Magaly Duran is a 30 y.o. female who presents for Routine Visit Patient presents today for Return OB appointment. MEDICATIONS Current Outpatient Medications Medication Instructions gabapentin (NEURONTIN) 600 mg, 3 times daily iron polysaccharides (PROFE) 391.3 mg, Oral, Daily lamoTRIgine (LaMICtal) 25 MG tablet TAKE 1 TABLET BY MOUTH EVERY DAY FOR 30 DAYS linaCLOtide (Linzess) 145 MCG capsule Every 24 hours linaCLOtide (LINZESS) 145 mcg, Oral, Daily before breakfast Vit-Fe Fumarate-FA ( Vitamins) 28-0.8 MG tablet 1 tablet, Oral, Daily promethazine (PHENERGAN) 12.5 mg, Oral, Every 6 hours PRN ALLERGIES Allergies Allergen Reactions Bupropion Other Reaction(s): Seizure PROBLEMS Active Ambulatory Problems Diagnosis Date Noted No Active Ambulatory Problems Resolved Ambulatory Problems Diagnosis Date Noted No Resolved Ambulatory Problems Past Medical History: Diagnosis Date Anxiety Bipolar disorder (HCC) Depression Fibromyalgia Gestational diabetes ([facility]) Insomnia Irritable bowel syndrome with constipation Opioid abuse ([facility]) Tobacco user HISTORY PAST MEDICAL HISTORY SOCIAL HISTORY Past Medical History: Diagnosis Date Anxiety Bipolar disorder (HCC) Depression Fibromyalgia Gestational diabetes ([facility]) Insomnia Irritable bowel syndrome with constipation Opioid abuse ([facility]) Tobacco user Social History Tobacco Use Smoking [...] Eyes: Negative. Respiratory: Negative. Cardiovascular: Negative. Gastrointestinal: Positive for diarrhea, nausea and vomiting. Genitourinary: Negative. Musculoskeletal: Negative. Skin: Negative. Neurological: [...] nursing note reviewed. Exam conducted with a master black belt present. Vitals: There is no height or weight on file to calculate BMI. BP: 112/70 Patient's last menstrual period was 10/21/2024 (exact date). ASSESSMENT & PLAN ICD-10-CM 1. Third trimester ([facility]) Z34.93 POCT urinalysis dipstick manually resulted 2. 31 weeks gestation of ([facility]) Z3A.31 POCT urinalysis dipstick manually resulted Return OB: Patient presents today for a routine obstetrics appointment. Patient is currently 31w0d . Patient states she is doing well but has complaints of being tired due to current . Patient has verbalizes frequent movement. labor precautions was discussed/given and patient was instructed to perform kick counts three times a day. Patient report daily nausea and vomiting and diarrhea ( 4 x per day). She reports this has been present for the last 2 months. Will send in Reglan to be taken before meals and can continue Zofran. Will send for stool culture with O & P. Reviewed Hgb with patient and iron infusion order sent to [facility]. Orders Placed This Encounter Procedures POCT urinalysis dipstick manually resulted Follow Up: Patient is to return to office in 2 week for routine OB appointment. Documented by Violet Woody NP on behalf of: Violet Woody NP documented in this encounter Plan of Treatment Upcoming Encounters Date Type Department Care Team (Late st Contact Info) Description 06/03/2025 11:30 AM EDT Routine [facility] [address] [address] Yousif Aparicio DO [address] [place], [place] [id number] Scheduled Orders Name Type Priority Associated Diagnoses Orde r Schedule Stool culture Microbiology Routine Diarrhea, unspecified type Expected: 05/20/2025 (Approximate), Expires: 05/20/2026 Ova and parasite screen Microbiology Routine Diarrhea, unspecified type Expected: 05/20/2025 (Approximate), Expires: 05/20/2026 documented as of this encounter Procedures Procedure Name Priority Date/Time Associated Diagnosis Comments POCT URINALYSIS DIPSTICK Routine 05/20/2025 10:19 AM EDT Third trimester ([facility]) 31 weeks gestation of ([facility]) documented in this encounter Results * POCT urinalysis dipstick manually resulted (05/20/2025 10:19 AM EDT) Color, UA Yellow Clarity, UA Clear Glucose, UA Negative Negative - 2000(110) ++++ mg/dL Bilirubin, UA Negative Negative - 4(70) +++ mg/dL Ketones, UA Negative Negative - 160(16) ++++ mg/dL Spec Grav, UA 1.005 1 - 1.03 Blood, UA Negative Negative - 50 Chriss/mcL pH, UA 8.0 5 - 9 Protein, UA Negative Negative - 2000(20) ++++ mg/dL Urobilinogen, UA 1.0 0.2 - 12 mg/dL Leukocytes, UA Negative Negative - 500+++ Leila/mcL Nitrite, UA Negative Negative - Positive Urine 05/20/2025 10:1 9 AM EDT Violet Woody NP POINT OF CARE TEST ENTER/EDIT ORDERABLES Final Result documented in this encounter Visit Diagnoses Diagnosis Diarrhea, unspecified type- Primary Third trimester ([facility]) state, incidental 31 weeks gestation of ([facility]) Nausea and vomiting in ([facility]) Unspecified vomiting of , unspecified as to episode of care documented in this encounter
--- OUTSIDE RECORDS SUMMARY | 2025-05-21 13:53 | XMS_ITS | Encounter Summary ---
Author Organization [facility] Address [address] [place] [address] Care Team Providers Care 5Th Grade Teacher Name Role Phone Unavailable Primary Care Provider Unavailabl e Encounter Details Date Type Department Care Team (Late Contact Info) Description 06/30/2023 Clinisync Result Encounter [facility] External Department Unsolicited Shon Aparicio DO [address] [place] [address] Social History Tobacco Use Types Packs/Day Years [...] Info) Description 06/03/2025 11:30 AM EDT Routine [facility] [address] [place] [address] Shon Aparicio DO [address] [place] [address] documented as of this encounter Procedures Procedure Name Priority Date/Time Associated Diagnosis Comments US OB CERVICAL LENGTH 06/30/2023 8:54 AM EDT documented in this encounter Results * US OB CERVICAL LENGTH (06/30/2023 8:54 AM EDT) Anatomical Region Laterality Modality Other 06/30/2023 8:54 AM EDT Narrative 06/30/2023 8:54 AM EDT [address] [address] Ultrasound Report Signed Patient: NOE ERVIN MR#: [id number] : 1995 Acct:[id number] Age/Sex: 28 / F ADM Date: 06/29/23 Loc: US Attending Dr: Shon Aparicio D.O. Ordering Physician: Shon Aparicio D.O. Date of Service: 06/29/23 Procedure(s): US OB cervical length Accession Number(s): [id number] cc: FAMILY,HEALTH SER ; Shon Aparicio D.O. [address] [address] Patient Name: NOE ERVIN MRN: [id number] date: 1995 Sex: F Assigned Patient Location: Current Patient Location: Accession/Order Number: [id number] Exam Date: 06/29/2023 18:00 Report Date: 06/30/2023 [...] Rogelio Rodriguez M.D. Signed By: 06/30/2356 DD/ 3 TD/TT: Registered Route Associate: Procedure Note Radiology, Radiologist, MD - 06/30/2023 [place] [address] Ultrasound Report Signed Patient: NOE ERVIN MMR#: [id number] : 1995Acct:[id number] Age/Sex: 28 FADM Date: 06/29/23 Loc: US Attending Dr: Shon Aparicio D.O. Ordering Physician: Shon Aparicio D.O. Date of Service: 06/29/23 Procedure(s): US OB cervical length Accession Number(s): [id number] cc: FAMILY,HEALTH SER ; Shon Aparicio D.O. [place] [address] Patient Name: NOE ERVIN MRN: [id number] date: 1995 Sex: F Assigned Patient Location: US Current Patient Location: Accession/Order Number: [id number] Exam Date: 06/29/2023 18:00 Report Date: 06/30/2023 [...] By: Rogelio Rodriguez M.D. Signed By:06/30/2356 DD/ TD/TT: Registered Route Associate: us Shon Markus DO [facility] Final Result documented in this encounter Visit Diagnoses Not on filedocumented in this encounter
--- OUTSIDE RECORDS SUMMARY | 2025-05-21 13:53 | XMS_ITS | Clinical Summary ---
Author Organization [employer] [facility] Address [id number] [address] [place] [address] Care Team Providers Care Shell Reprint Operator Name Role Phone Prisca Dave BIOINFORMATICS RESEARCH TECHNICIAN-FOOD TESTER Primary Care Provider Allergies No known active [...] 4:41 PM 02/23/2017 3:13 PM Care Teams Shell Reprint Operator Relationship Specialty Start Date End Date Prisca Dave APRN-MARIANO [address] [place] [address] PCP - General Family Medicine 04/24/23
--- OUTSIDE RECORDS SUMMARY | 2025-05-21 13:53 | XMS_ITS | Patient Health Record ---
Author Organization [facility] Address [address] [place] [address] Care Team Providers Care Psychologist Private Practice Name Role Phone Jennie Harris Primary Care Provider [phone] Prisca Moss Unavailable [phone] Marla Edwards Unavailable [phone] Jamila Winter Unavailable Allergies Allergen (clinical drug ingredient) Drug/Non Drug Allergy documented on EMR Reaction Allergy Type Onset Date Status Wellbutrin Seizure Drug Allergy Active Reason For Referral Reason SCHEDULED 11/20 Hep C positive, needing treatment. Please evaluate and treat. Diagnosis 1 Chronic hepatitis C without hepatic coma (B18.2) Referral Organization [facility] Referring Provider First Name Prisca Referring Provider Last Name Isa Referring Provider Speciality Nurse Melanie parkerr Referred Provider [facility] , . 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 Stress is when someone feels tense, nervous, anxious, or cant sleep at night because their mind is troubled A little bit In the past year have you sp ent more than 2 nights in a row in a nursing home, retirement, usp center, or juvenile correctional facility? No Are [...] W/U Status Risk Notes Problem Tobacco user (578409368) Nicotine dependence, unspecified, uncomplicated (F17.200) Active confirmed Problem Anxiety (84387391) Anxiety (F41.9) Active confirmed Problem Bipolar 1 disorder (873456704) Bipolar 1 disorder (F31.9) Active confirmed Problem Neuropathy (172582383) Neuropathy (G62.9) Active confirmed Problem Chronic hepatitis C (851577603) Chronic hepatitis C without hepatic coma (B18.2) Active confirmed Problem Recurrent depression (118331880) Recurrent depression (F33.9) Active confirmed Vital Signs Heart Rate 90 /min 02/17/2025 Temperature 97.1 degrees Fahrenheit 02/17/2025 Respiratory Rate 20 /min 02/17/2025 Oximetry 95 % 02/17/2025 Blood pressure diastolic 73 mm Hg 02/17/2025 Height 5ft6in in 02/17/2025 Blood pressure systolic 115 mm Hg 02/17/2025 Weight 170.2 lbs 02/17/2025 BMI 27.47 kg/m2 02/17/2025 Encounters Encounter Location Date Provider Diagnosis [place] [address] [place] [address] 05/21/2024 Prisca zzzMurray Neuropathy G62.9 [place] [address] [place] [address] 05/30/2024 Prisca zdonnaMurray [place] [address] [place] [address] 06/18/2024 Prisca zzzMurray Neuropathy G62.9 [place] [address] [place] [address] 07/15/2024 Prisca zzzMurray Neuropathy G62.9 [facility] [address] [place] [address] 07/16/2024 Prisca zzzMurray Chronic constipation K59.09 [place] [address] [place] [address] 08/19/2024 Prisca zzzMurray Neuropathy G62.9 [place] [address] [place] [address] 10/24/2024 Prisca zzzMurray Chronic constipation K59.09 [place] [address] [place] [address] 12/09/2024 Prisca zzzMurray Chronic constipation K59.09 [place] [address] [place] [address] 12/22/2024 Prisca zzzMurray Bipolar 1 disorder F31.9 ; Anxiety F41.9 and Neuropathy G62.9 [place] [address] [place] [address] 01/12/2025 Prisca zzzMurray Chronic constipation K59.09 [facility] [address] [place] [address] 01/19/2025 Jamila Maggy Anxiety F41.[address] and Bipolar [address] [facility] [address] [place] [address] 01/21/2025 Marla erikaJacobdaria Neuropathy G62.9 [facility] [address] [place] [address] 02/20/2025 Jennie Harris Bipolar 1 disorder F31.[address] [facility] [address] [place] [address] 03/24/2025 Jennie Harris Bipolar 1 disorder F31.9 and Neuropathy G62.9 [place] [address] [place] [address] 04/22/2025 Jennie Harris Neuropathy G62.9 [facility] [address] [place] [address] 11/21/2024 Prisca jamesMurrjacqui Sore throat J02.9 ; Neuropathy G62.9 ; Chronic constipation K59.09 ; Bipolar 1 disorder F31.9 and Anxiety F41.9 [facility] [address] [place] [address] 02/17/2025 Jennie Harris Bipolar 1 disorder F31.9 ; Anxiety F41.9 ; 17 weeks gestation of Z3A.17 and Upper respiratory tract infection, unspecified type J06.9 [facility] [address] [place] [address] 10/23/2024 Prisca zzzMurray Anxiety F41.9 ; Chronic [...] daily. Instructed patient to let Dr. Aparicio wood type cutter know she started celexa. Follow up in [...] having a hard time. She will call [facility] for her follow up appt. Reviewed red flag symptoms, parameters to RTC. 02/17/2025 Other Body Mass Index : Care Instructions material was printed Plan Of Treatment No Information Insurance Providers Payer Name Payer Address Payer Phone Subscriber Number Group Number Insured Name Patient Relationship to Insured Coverage Start Date Coverage End Date [place] [place] [employer] [address] [place] [address] [id number] NOE ERVIN Self - patient is the insured 2 [employer] [address] [place] [address] [phone] [id number] NOE ERVIN Self - patient is the insured 2 [employer] [address] [address] [place] [address] [id number] NOE ERVIN Self - patient is the insured 3 [facility] [address] [place] [address] [id number] NOE ERVIN Self - patient is the insured 3 [facility] ed 22. [address] [place] [address] [id number] NOE ERVIN Self - patient is the insured 2 3 zMEDICAID CFC after [facility] med 22 [address] [place] [address] [id number] NOE ERVIN Self - patient is the insured 2 3 Medical (General) History Medical History History ICD Code depression anxiety neuropathy FX of left cheek Hospitalization History Reason Date(Month/Year) 1 [facility] ICU 2024 Detox 11/20/2023 ChildBirth x3
--- OUTSIDE RECORDS SUMMARY | 2025-05-21 13:53 | XMS_ITS | Encounter Summary ---
Author Organization [facility] Address [address] [place] [address] Care Team Providers Care Lpn Name Role Phone Unavailable Primary Care Provider Unavailabl e Encounter Details Date Type Department Care Team (Late Contact Info) Description 09/09/2023 Clinisync Result Encounter [facility] External Department Unsolicited Jody Hall PA [address] [place] [id number] Social History Tobacco Use Types Packs/Day Years [...] AM EDT Routine [facility] [address] [place] [address] Yousif Aparicio DO [address] [facility] [place] [address] documented as of this encounter Procedures Procedure Name Priority Date/Time Associated Diagnosis Comments US OB BPP W NON-STRESS 09/09/2023 12:17 AM EST documented in this encounter Results * US OB BPP W NON-STRESS (09/09/2023 12:17 AM EST) Anatomical Region Laterality Modality Other 09/09/2023 12:1 7 AM EST Narrative 09/09/2023 12:19 AM EST [address] [address] Ultrasound Report Signed Patient: NOE ERVIN MR#: [id number] : 1995 Acct:[id number] Age/Sex: 28 / F ADM Date: 09/07/23 Loc: US Attending Dr: Yousif Aparicio D.O. Ordering Physician: Jody Hall Date of Service: 09/07/23 Procedure(s): US OB BPP w non-stress Accession Number(s): [id number] cc: Jody Hall; FAMILY,HEALTH SER The [place] [id number] Patient Name: NOE ERVIN MRN: [id number] date: 1995 Sex: F Assigned Patient Location: [facility] Current Patient Location: Accession/Order Number: [id number] Exam Date: 09/07/2023 17:10 Report Date: 09/09/2023 [...] By: Rogelio Rodriguez M.D. Signed By: 09/09/23 0019 DD/ TD/TT: Instrument Inspector: Procedure Note Radiology, Radiologist, MD - 09/09/[address] [place] [address] Ultrasound Report Signed Patient: NOE ERVIN MMR#: [id number] : 1995Acct:[id number] Age/Sex: 28 / FADM Date: 09/07/23 Loc: US Attending Dr: Yousif Aparicio D.O. Ordering Physician: Jody Hall Date of Service: 09/07/23 Procedure(s): US OB BPP w non-stress Accession Number(s): [id number] cc: Jody Hall; FAMILY,HEALTH SER [place] [id number] Patient Name: NOE ERVIN MRN: [id number] date: 1995 Sex: F Assigned Patient Location: [facility] Current Patient Location: Accession/Order Number: [id number] Exam Date: 09/07/2023 17:10 Report Date: 09/09/2023 [...] 00:17 Dictated By: Rogelio Rodriguez M.D. Signed By:09/09/23 0019 DD/ 0017 TD/TT: Instrument Inspector: Jody UREÑA [facility] Final Result documented in this encounter Visit Diagnoses Not on filedocumented in this encounter
--- OUTSIDE RECORDS SUMMARY | 2025-05-21 13:53 | XMS_ITS | Encounter Summary ---
Author Organization [facility] Address [address] [place] [address] Care Team Providers Care Freelance Translator Name Role Phone Unavailable Primary Care Provider Unavailabl e Encounter Details Date Type Department Care Team (Late Contact Info) Description 09/05/2023 Clinisync Result Encounter NOMS External Department Unsolicited Shon Aparicio DO [address] [place] [address] Social History Tobacco Use Types Packs/Day Years [...] Department Care Team (Late Contact Info) Description 06/03/2025 11:30 AM EDT Routine [facility] [address] [place] [address] Shon Aparicio DO [address] [place] [address] documented as of this encounter Procedures Procedure Name Priority Date/Time Associated Diagnosis Comments US OB GROWTH 09/05/2023 3:57 PM EST documented in this encounter Results * US OB GROWTH (09/05/2023 3:57 PM EST) Anatomical Region Laterality Modality Other 09/05/2023 3:57 PM EST Narrative 09/05/2023 4:[address] [address] Ultrasound Report Signed Patient: NOE ERVIN MR#: [id number] : 1995 Acct:[id number] Age/Sex: 28 / F ADM Date: 09/05/23 Loc: US Attending Dr: Shon Aparicio D.O. Ordering Physician: Shon Aparicio D.O. Date of Service: 09/05/23 Procedure(s): US OB growth Accession Number(s): [id number] cc: FAMILY,HEALTH SER ; Shon Aparicio D.O. [place] [id number] Patient Name: NOE ERVIN MRN: [id number] date: 1995 Sex: F Assigned Patient Location: US Current Patient Location: US Accession/Order Number: [id number] Exam Date: 09/05/2023 15:18 Report Date: 09/05/2023 [...] Baugh M.D. Signed By: 09/05/23 1600 DD/ 1557 TD/TT: Analytical Chemist: Procedure Note Radiology, Radiologist, MD - 09/06/2023 [place] [address] Ultrasound Report Signed Patient: NOE ERVIN MMR#: [id number] : 1995Acct:[id number] Age/Sex: 28 / FADM Date: 09/05/23 Loc: US Attending Dr: Shon Aparicio D.O. Ordering Physician: Shon Aparicio D.O. Date of Service: 09/05/23 Procedure(s): US OB growth Accession Number(s): [id number] cc: FAMILY,HEALTH SER ; Shon Aparicio D.O. The [place] [address] Patient Name: NOE ERVIN MRN: [facility]:[id number] date: 1995 Sex: F Assigned Patient Location: Current Patient Location: Accession/Order Number: [id number] Exam Date: 09/05/2023 15:18 Report Date: 09/05/2023 [...] M.D. Signed By:09/05/23 1600 DD/ 1557 TD/TT: Analytical Chemist: us Shon Aparicio DO [facility] Final Result documented in this encounter Visit Diagnoses Not on filedocumented in this encounter
--- OUTSIDE RECORDS SUMMARY | 2025-05-21 13:53 | XMS_ITS | Encounter Summary ---
Author Organization [facility] Address [address] [place] [address] Care Team Providers Care Assembler Convertible Top Name Role Phone Unavailable Primary Care Provider Unavailabl e Encounter Details Date Type Department Care Team (Late Contact Info) Description 06/30/2023 Clinisync Result Encounter NOMS External Department Unsolicited Shon Aparicio DO [address] [place] [address] Social History Tobacco Use Types Packs/Day Years [...] AM EDT Routine [facility] [address] [place] [address] Shon Aparicio DO [address] [place] [address] documented as of this encounter Procedures Procedure Name Priority Date/Time Associated Diagnosis Comments US OB ANATOMY 06/30/2023 8:54 AM EDT documented in this encounter Results * US OB ANATOMY (06/30/2023 8:54 AM EDT) Anatomical Region Laterality Modality Other 06/30/2023 8:54 AM EDT Narrative 06/30/2023 8:54 AM EDT [address] [address] Ultrasound Report Signed Patient: NOE ERVIN MR#: [id number] : 1995 Acct:[id number] Age/Sex: 28 / F ADM Date: 06/29/23 Loc: US Attending Dr: Shon Aparicio D.O. Ordering Physician: Shon Aparicio D.O. Date of Service: 06/29/23 Procedure(s): US OB anatomy Accession Number(s): [id number] cc: FAMILY,HEALTH SER ; Shon Aparicio D.O. [address] [address] Patient Name: NOE ERVIN MRN: [id number] date: 1995 Sex: F Assigned Patient Location: Current Patient Location: Accession/Order Number: [id number] Exam Date: 06/29/2023 18:00 Report Date: 06/30/2023 [...] Rodriguez M.D. Signed By: 06/30/2356 DD/ TD/TT: Product Examiner: Procedure Note Radiology, Radiologist, MD - 06/30/2023 [place] [address] Ultrasound Report Signed Patient: NOE ERVIN MMR#: [id number] : 1995Acct:[id number] Age/Sex: 28 / FADM Date: 06/29/23 Loc: US Attending Dr: Shon Aparicio D.O. Ordering Physician: Shon Aparicio D.O. Date of Service: 06/29/23 Procedure(s): US OB anatomy Accession Number(s): [id number] cc: FAMILY,HEALTH SER ; Shon Aparicio D.O. The [place] [id number] Patient Name: NOE ERVIN MRN: [id number] date: 1995 Sex: F Assigned Patient Location: US Current Patient Location: Accession/Order Number: [id number] Exam Date: 06/29/2023 18:00 Report Date: 06/30/2023 [...] Rodriguez M.D. Signed By:06/30/2356 DD/ 3 TD/TT: Product Examiner: us Shon Markus DO [facility] Final Result documented in this encounter Visit Diagnoses Not on filedocumented in this encounter
--- OUTSIDE RECORDS SUMMARY | 2025-05-21 13:53 | XMS_ITS | Encounter Summary ---
Author Organization [facility] Address [address] [place] [address] Care Team Providers Care User Experience Developer Name Role Phone Unavailable Primary Care Provider Unavailabl e Encounter Details Date Type Department Care Team (Late Contact Info) Description 03/19/2025 Orders Only CHARBEL GIANG [address] [place] [phone] Anne-Marie Mcleod MA Social History Tobacco Use [...] Info) Description 06/03/2025 11:30 AM EDT Routine CHARBEL GIANG [address] [place] [address] Yousif Aparicio DO [address] [facility] [address] [place], [place] [phone] documented as of this encounter Procedures Procedure Name Priority Date/Time Associated Diagnosis Comments PAP SMEAR Routine 03/11/2025 12:00 AM EDT documented in this encounter Results * Pap Smear (03/11/2025 12:00 AM EDT) Swab Cervical swab / Unknown us Yousif Aparicio DO LAB CYTOLOGY ORDERABLES Final Re sult EXTERNAL LAB documented in this encounter Visit Diagnoses Not on filedocumented in this encounter
--- OUTSIDE RECORDS SUMMARY | 2025-05-21 13:54 | XMS_ITS | Encounter Summary ---
Author Organization [facility] Address [address] [place] [address] Care Team Providers Care Printing And Stamping Supervisor Name Role Phone Unavailable Primary Care Provider Unavailabl e Encounter Details Date Type Department Care Team (Late st Contact Info) Description 05/19/2025 Abstract CHARBEL GIANG [address] [facility] [place] [address] Anne-Marie Mcleod MA Social History Tobacco [...] 11:30 AM EDT Routine CHARBEL GIANG [address] [facility] [place] [address] Yousif Aparicio DO [address] [facility] [address] [place], [place] [phone] documented as of this encounter Visit Diagnoses Not on filedocumented in this encounter
--- OUTSIDE RECORDS SUMMARY | 2025-05-21 13:54 | XMS_ITS | Encounter Summary ---
Author Organization [facility] Address [address] [place] [address] Care Team Providers Care Cement Tester Assistant Name Role Phone Unavailable Primary Care Provider Unavailabl e Encounter Details Date Type Department Care Team (Late Contact Info) Description 05/08/2025 Clinisync Result Encounter NOMS External Department Unsolicited Violet Woody, TOWER OPERATOR [address] [facility] [place] [address] Social History Tobacco Use Types Packs/Day Years [...] 06/03/2025 11:30 AM EDT Routine [facility] Alvaro OBANGEL [address] [place] [address] Yousif Aparicio DO [address] [place], [place] [address] documented as of this encounter Procedures Procedure Name Priority Date/Time Associated Diagnosis Comments GLUCOSE 1 HOUR Routine 05/08/2025 9:39 AM EDT TRANSFERRIN Routine 05/08/2025 9:39 AM EDT [facility] FERRITIN Routine 05/08/2025 9:39 AM EDT ALL CBC WITH AUTO DIFF Routine 05/08/2025 9:39 AM EDT documented in this encounter Results * (ABNORMAL) TRANSFERRIN (05/08/2025 9:39 AM EDT) TRANSFERRIN 435(A) 192 - 364 mg/dL [facility] Comment: Performed at: [facility] Lab[address] [id number] Architectural Design Professor: Justice Flor PhD, Phone: [phone] 05/08/2025 9:39 AM EDT 05/08/2025 9:41 AM EDT Narrative [facility] - 05/09/2025 4:07 AM EDT us Yousif Markus DO LAB BLOOD ORDERABLES Final Resul t [facility] * (ABNORMAL) [facility] FERRITIN (05/08/2025 9:39 AM EDT) [facility] FERRITIN 2.0(L) 8.0 - 252.0 ng/mL [facility] 05/08/2025 9:39 AM EDT 05/08/2025 9:41 AM EDT Narrative [facility] - 05/08/2025 11:07 AM EDT us Yousif Markus DO [facility] Final Result [facility] * (ABNORMAL) ALL CBC WITH AUTO DIFF (05/08/2025 9:39 AM EDT) [facility] TB WBC 9.0 4.0 - 11.0 10 3/uL [facility] TB RBC 3.61(L) 4.20 - 5.40 10 6/uL [facility] TBH HGB 8.3(L) 12.0 - 16.0 g/dL TBH TBH HCT 26.9(L) 36.0 - 48.0 % [facility]H TBH MCV 74.5(L) 81.0 - 99.0 fL TBH TBH MCH 23.0(L) 26.7 - 34.0 pg TBH TBH MCHC 30.9 29.9 - 35.2 g/dL TBH TBH RDW 14.8 11.0 - 15.0 % TBH TBH PLT 226 150 - 450 10 3/uL TBH TBH MPV 11.2 9.5 - 13.5 fL [facility]H NEUTROPHILS PERCENT AUTO 82.9(H) 43.0 - 75.0 % [facility] LYMPHOCYTES PERCENT AUTO 10.5(L) 20.5 - 60.0 % [facility] MONOCYTES PERCENT AUTO 5.2 1.7 - 12.0 % TBH TBH EO % 0.8(L) 0.9 - 7.0 % TBH BASOPHILS PERCENT AUTO 0.2 0.2 - 2.0 % [facility] IMMATURE GRANULOCYTES PCT AUTO 0.4 0.0 - 0.5 % [facility] NEUTROPHILS ABSOLUTE AUTO 7.5(H) 1.4 - 6.5 10 3/uL [facility]H LYMPHOCYTES ABSOLUTE AUTO 1.0(L) 1.2 - 3.8 10 3/uL [facility] MONOCYTES ABSOLUTE AUTO 0.5 0.3 - 0.8 10 3/uL TBH TBH EO # 0.1 0.0 - 0.7 10 3/uL [facility] BASOPHILS ABSOLUTE AUTO 0.0 0.0 - 0.1 10 3/uL [facility] IMMATURE GRANULOCYTES ABS AUTO 0.04(H) 0.00 - 0.03 10 3/uL [facility] 05/08/2025 9:39 AM EDT 05/08/2025 9:41 AM EDT Narrative [facility] - 05/08/2025 10:04 AM EDT us Violet Woody NP [facility] Final Result [facility] TB * GLUCOSE 1 HOUR (05/08/2025 9:39 AM EDT) GLUCOSE 1 HOUR 121 <130 mg/dL [facility] 05/08/2025 9:39 AM EDT 05/08/2025 9:41 AM EDT Narrative [facility] - 05/08/2025 10:01 AM EDT Violet Woody NP LAB BLOOD ORDERABLES Final Re sult [facility] documented in this encounter Visit Diagnoses Not on filedocumented in this encounter
--- OUTSIDE RECORDS SUMMARY | 2025-05-21 13:54 | XMS_ITS | Encounter Summary ---
Author Organization [facility] Address [address] [place] [address] Care Team Providers Care Photographic Processor Name Role Phone Unavailable Primary Care Provider Unavailabl e Encounter Details Date Type Department Care Team (Late Contact Info) Description 09/14/2023 Clinisync Result Encounter NOMS External Department Unsolicited Jody Hall PA [address] [facility] [address] [place] [phone] Social History Tobacco Use Types Packs/Day Years [...] AM EDT Routine [facility] [address] [facility] [place] [address] Yousif Aparicio DO [address] [facility] [place] [address] documented as of this encounter Procedures Procedure Name Priority Date/Time Associated Diagnosis Comments US OB BPP W NON-STRESS 09/14/2023 9:06 PM EST documented in this encounter Results * US OB BPP W NON-STRESS (09/14/2023 9:06 PM EST) Anatomical Region Laterality Modality Other 09/14/2023 9:06 PM EST Narrative 09/14/2023 9:09 PM EST [address] [address] Ultrasound Report Signed Patient: NOE ERVIN MR#: [id number] : 1995 Acct:[id number] Age/Sex: 28 / F ADM Date: 09/14/23 Loc: US Attending Dr: Jody Hall Ordering Physician: Jody Hall Date of Service: 09/14/23 Procedure(s): US OB BPP w non-stress Accession Number(s): [id number] cc: Jody Hall; FAMILY,[facility]ALTH [facility] The [address] [address] Patient Name: NOE ERVIN MRN: [id number] date: 1995 Sex: F Assigned Patient Location: US Current Patient Location: Accession/Order Number: [id number] Exam Date: 09/14/2023 17:40 Report Date: 09/14/2023 [...] Dictated By: Rogelio Rodriguez M.D. Signed By: 09/14/232108 DD/ 05 TD/TT: Systematic Theology Professor: Procedure Note Radiology, Radiologist, - 11/21/2023 The [place] [id number] Ultrasound Report Signed Patient: NOE ERVIN MMR#: [id number] : 1995Acct:[id number] Age/Sex: 28 FADM Date: 09/14/23 Loc: US Attending Dr: Jody Hall Ordering Physician: Jody Hall Date of Service: 09/14/23 Procedure(s): US OB BPP w non-stress Accession Number(s): [id number] cc: Jody Hall; FAMILY,HEALTH SER [place] [address] Patient Name: NOE ERVIN MRN: [id number] date: 1995 Sex: F Assigned Patient Location: US Current Patient Location: Accession/Order Number: [id number] Exam Date: 09/14/2023 17:40 Report Date: 09/14/2023 [...] Rodriguez M.D. Signed By:09/14/232108 DD/ 05 TD/TT: Systematic Theology Professor: us Jody UREÑA [facility] Final Result documented in this encounter Visit Diagnoses Not on filedocumented in this encounter
--- OUTSIDE RECORDS SUMMARY | 2025-05-21 13:54 | XMS_ITS | Encounter Summary ---
Author Organization [facility] Address [address] [place] [address] Care Team Providers Care Imaging Administrator Name Role Phone Unavailable Primary Care Provider Unavailabl e Encounter Details Date Type Department Care Team (Late st Contact Info) Description 05/14/2025 Abstract [facility] [address] [facility] [place] [phone] Yousif Aparicio DO [address] [facility] [place] [address] Social History Tobacco Use Types Packs/Day Years [...] on file documented as of this encounter Functional Status * Over the past 2 weeks, how often have you been bothered by any of the following problems? Question Answer Date of Assessment Author Little interest or pleasure in doing things Not at all 05/14/2025 1:06 PM EDT Jody Gentile LPN Feeling down, depressed, or hopeless Not at all 05/14/2025 1:06 PM EDT Jody Gentile LPN Patient Health Questionnaire -2 Score 0 05/14/2025 1:06 PM EDT Gentile, Jody, CURING BIN OPERATOR documented as of this encounter Plan of Treatment Upcoming Encounters Date Type Department Care Team (Late st Contact Info) Description 06/03/2025 11:30 AM EDT Routine [facility] Al[facility]o OBGYOleksandr [address] [place] [address] Yousif Aparicio DO [address] [place] [address] documented as of this encounter Visit Diagnoses Not on filedocumented in this encounter
--- OUTSIDE RECORDS SUMMARY | 2025-05-21 13:54 | XMS_ITS | Encounter Summary ---
Author Organization [facility] Address [facility] [id number] [address] [place] [address] Care Team Providers Care Sewer Inspector Name Role Phone Prisca Dave TANK HOUSE OPERATOR-FINISH PAINTER Primary Care Provider Reason for Referral * Diagnostic Imaging (Routine) - Closed Specialty Diagnoses / Procedures Referred By Contevaristo t Referred To Contact Maternal and Medicine Diagnoses History of pre-eclampsia in prior , currently Substance abuse affecting , antepartum ([facility]) Obesity affecting in first trimester History of gestational diabetes in prior , currently Recurrent major depressive disorder, in partial remission Former smoker History of delivery Procedures US [facility] with or without consult Johnathon Benedict MD [address] [place] [address] 03/17/2024 [place] [address] Phone: tel: fax: Maternal- Medicine at [address] [address] Phone: tel: fax: Referral ID Status Reason Start Date Expiration Date Visits Re quested Visits Authorized [id number] Closed 05/31/2021 05/31/2022 1 1 Encounter Details Date Type Department Care Team (Late st Contact Info) Description 05/31/2021 Orders Only Maternal- Medicine at [address] [address] Johnathon Benedict MD [address] [place] [address] History of pre-eclampsia in prior , currently (Primary Dx); Substance abuse affecting , antepartum; Obesity affecting in first trimester; History of gestational diabetes in prior , currently ; Recurrent major depressive disorder, in partial remission ([facility]); Former smoker; History of delivery Social History [...] documented as of this encounter Results * [facility] COMPREHENSIVE ANATOMIC SURVEY (07/26/2021 11:35 AM EST) [...] Final 07/26/2021 11:45) PATIENT INFO: ID #: [id number] : [birth year] (26 yrs)(F) Name: NOE PRESSLEY Visit Date: 07/26/2021 11:30 SOCHKO PERFORMED BY: Performed By: Sailaja Donaldson RDMS Attending: Elias Tamayo MD Referred By: Yousif Betancur. Address: [address] [place] [address] [place] [address] Location: Maternal Medicine [place] SERVICE(S) PROVIDED: Comprehensive Anatomic Survey 22385 OB Transvaginal 19824 INDICATIONS: Suspected or known abnormality in O35.9XX0 [...] Arch: Appears normal SVC: Appears Normal Cardiac [place]: Appears normal Diaphragm: Appears normal 3 Vessel [...] Final 07/26/2021 11:45) PATIENT INFO: ID #: [id number] : [birth year] (26 yrs)(F) Name: NOE PRESSLEY Visit Date: 07/26/2021 11:30 SOCHKO PERFORMED BY: Performed By: Sailaja Donaldson RDMS Attending: Elias Tamayo MD Referred By: Yousif Aparicio DO Ref. Address: [address] [place] [address] [place] [address] Location: Maternal Medicine [place] SERVICE(S) PROVIDED: Comprehensive Anatomic Survey 07530 OB Transvaginal 87040 INDICATIONS: Suspected or known abnormality in O35.9XX0 [...] 12/12/21 Best: 20w 0d Det. By: Early ANEGLA: 12/13/21 Ultrasound (05/10/21) TARGETED ANATOMY: Central Nervous [...] Arch: Appears normal SVC: Appears Normal Cardiac [place]: Appears normal Diaphragm: Appears normal 3 Vessel [...] obstetric history Substance abuse affecting , antepartum ([facility]) Obesity affecting in first trimester History of gestational diabetes in prior , currently with other poor obstetric history Recurrent major depressive disorder, in partial remission Former smoker Personal history of tobacco use, presenting hazards to health History of delivery History of pre-eclampsia in prior , currently with other poor obstetric history Substance abuse affecting , antepartum ([facility]) Obesity affecting in first trimester History of [...] documented as of this encounter Care Teams Sewer Inspector Relationship Specialty Start Date End Date Prisca Dave APRN-MARIANO [address] [place] [address] PCP - General Family Medicine 04/24/23 documented as of this encounter
--- OUTSIDE RECORDS SUMMARY | 2025-05-21 13:54 | XMS_ITS | Encounter Summary ---
Author Organization [facility] Address [address] [place] [address] Care Team Providers Care Word Processor Operator Name Role Phone Unavailable Primary Care Provider Unavailabl e Encounter Details Date Type Department Care Team (Late st Contact Info) Description 05/12/2025 Abstract [facility] [address] [facility] [place] [phone] Yousif Aparicio DO [address] [facility] [place] [address] Social History Tobacco Use Types Packs/Day Years [...] 0 05/14/2025 1:06 PM EDT Gentile, Jody, PRECISION HONER documented as of this encounter Plan of Treatment Upcoming Encounters Date Type Department Care Team (Late st Contact Info) Description 06/03/2025 11:30 AM EDT Routine [facility] Alvaro OBGYOleksandr [address] [place] [address] Yousif Aparicio DO [address] [place] [address] documented as of this encounter Visit Diagnoses Not on filedocumented in this encounter
--- OUTSIDE RECORDS SUMMARY | 2025-05-21 13:54 | XMS_ITS | Encounter Summary ---
Author Organization [facility] Address [address] [place] [address] Care Team Providers Care Thermometer Production Worker Name Role Phone Unavailable Primary Care Provider Unavailabl e Encounter Details Date Type Department Care Team (Late st Contact Info) Description 10/31/2023 Abstract [facility] Hussein OBANGEL [address] [place] [phone] Martha Rapp CNM [address] [place], [place] [phone] Social History Tobacco Use Types Packs/Day Years [...] Description 06/03/2025 11:30 AM EDT Routine [facility] John OBGYN [address] [facility] [place] [address] Yousif Aparicio DO [address] [place], [place] [address] documented as of this encounter Visit Diagnoses Not on filedocumented in this encounter
--- OUTSIDE RECORDS SUMMARY | 2025-05-21 13:54 | XMS_ITS | Encounter Summary ---
Author Organization [facility] Address [address] [place] [address] Care Team Providers Care Bin Worker Name Role Phone Unavailable Primary Care Provider Unavailabl e Encounter Details Date Type Department Care Team (Late st Contact Info) Description 05/14/2025 Abstract [facility] [address] [facility] [place] [address] Yousif Aparicio DO [address] [facility] [place] [address] Social History Tobacco Use Types Packs/Day Years [...] 0 05/14/2025 1:06 PM EDT Gentile, Jody, DIE SETTER documented as of this encounter Plan of Treatment Upcoming Encounters Date Type Department Care Team (Late st Contact Info) Description 06/03/2025 11:30 AM EDT Routine [facility] Alvar[facility] OBGYOleksandr [address] [place] [address] Yousif Aparicio DO [address] [place] [address] documented as of this encounter Visit Diagnoses Not on filedocumented in this encounter
--- OUTSIDE RECORDS SUMMARY | 2025-05-21 13:54 | XMS_ITS | Encounter Summary ---
Author Organization [facility] Address [address] [place] [address] Care Team Providers Care Manager Performance Improvement Name Role Phone Unavailable Primary Care Provider Unavailabl e Encounter Details Date Type Department Care Team (Late Contact Info) Description 11/02/2023 Abstract CHARBEL GIANG [address] [facility] [phone] Adrianna Rushing LPN [address] [facility] [place] [facility] Social History Tobacco Use Types Packs/Day Years [...] 11:30 AM EDT Routine CHARBEL GIANG [address] [facility] [address] Yousif Aparicio DO [address] [facility] [address] [place], [place] [address] documented as of this encounter Visit Diagnoses Not on filedocumented in this encounter
--- OUTSIDE RECORDS SUMMARY | 2025-05-21 13:54 | XMS_ITS | Encounter Summary ---
Author Organization [facility] Address [address] [place] [address] Care Team Providers Care Stack Clerk Name Role Phone Unavailable Primary Care Provider Unavailabl e Encounter Details Date Type Department Care Team (Late Contact Info) Description 01/01/2025 Abstract NOM[facility]orrie GIANG [address] [place] [address] Yousif Aparicio DO [address] [place] [address] Dr [place], [place] [address] Social History Tobacco Use Types Packs/Day Years [...] 11:30 AM EDT Routine CHARBEL GIANG [address] [facility] [address] Yousif Aparicio DO [address] [place], [facility] documented as of this encounter Visit Diagnoses Not on filedocumented in this encounter
--- OUTSIDE RECORDS SUMMARY | 2025-05-21 13:54 | XMS_ITS | Encounter Summary ---
Author Organization [facility] Address [address] [place] [address] Care Team Providers Care Tanning Wheel Filler Name Role Phone Unavailable Primary Care Provider Unavailabl e Encounter Details Date Type Department Care Team (Late Contact Info) Description 01/01/2025 Abstract [facility] GIANG [address] [place] [address] Yousif Aparicio DO [address] [place] [address] Dr [place], [place] [address] Social History Tobacco Use Types Packs/Day Years [...] 11:30 AM EDT Routine CHARBEL GIANG [address] [facility] [place] [address] Yousif Aparicio DO [address] [place], [facility] documented as of this encounter Visit Diagnoses Not on filedocumented in this encounter
--- OUTSIDE RECORDS SUMMARY | 2025-05-21 13:54 | XMS_ITS | Encounter Summary ---
Author Organization [facility] Address [address] [place] [address] Care Team Providers Care Industrial Engineering Director Name Role Phone Unavailable Primary Care Provider Unavailabl e Encounter Details Date Type Department Care Team (Late Contact Info) Description 10/30/2023 Abstract CHARBEL GIANG [address] [facility] [place] [phone] Adrianna Rushing LPN 102 [facility] Rojelio RUELAS [facility] Social History Tobacco Use Types Packs/Day Years [...] [facility] [place] [address] Yousif Aparicio DO [address] [facility] [address] [place], [place] [phone] documented as of this encounter Visit Diagnoses Not on filedocumented in this encounter
--- OUTSIDE RECORDS SUMMARY | 2025-05-21 13:54 | XMS_ITS | Clinical Summary ---
Author Organization [facility] Address [address] [place] [address] Care Team Providers Care Director Of Career Resources Name Role Phone Unavailable Primary Care Provider [...] supervision of normal first in first trimester ([facility]) Take 1 tablet by mouth Daily 30 tablet 11 01/02/20 25 026 Active linaCLOtide (Linzess) 145 MCG capsule 1 (one) time each day at the same time Active iron polysaccharides (ProFe) 391.3 (180 Fe) MG capsuleIndications: Low iron,Dizziness Take 1 capsule (391.3 mg) by mouth Daily 30 capsule 6 05/06/20 25 026 Active promethazine (Phenergan) 12.5 MG tabletIndications:N ausea Take 1 tablet (12.5 mg) by mouth every 6 (six) hours if needed for nausea or vomiting 180 tablet 1 05/06/20 25 025 Active metoclopramide (Reglan) 10 MG tabletIndications:N ausea and vomiting in ([facility]) Take 1 tablet (10 mg) by mouth in the morning and 1 tablet (10 mg) at noon and 1 tablet (10 mg) in the evening. Take before meals. Take 1 tablet by mouth 30 minutes prior to meals 3 times daily as needed for nausea. 90 tablet 1 05/20/20 25 025 Active ondansetron (Zofran) 4 MG [...] 3 04/29/20 25 025 Discontin ued(Other ) ondansetron (Zofran) 4 MG tabletIndications:N ausea and vomiting, unspecified vomiting type Take 1 tablet (4 mg) by mouth every 6 (six) hours if needed for nausea or vomiting for up to 30 doses Take 1 tablet by mouth every 6 hours as needed for nausea. 30 tablet 3 04/29/20 25 025 Discontin ued(Other ) Encounters Date Type Department Care Team Description 05/20/2025 9:50 [place] [address] Violet Woody NP Diarrhea, unspecified type (Primary Dx); Third trimester ([facility]); 31 weeks gestation of ([facility]); Nausea and vomiting in ([facility]) 05/20/2025 9:30 AM EDT Ancillary Procedure NOMLorrie GIANG [address] [place] [address] size inconsistent with dates ([facility]) 05/19/2025 Abstract [facility] [address] [facility] [place] [address] Anne-Marie Mcleod MA 05/14/2025 Abstract [facility] [place] [facility] [address] [facility] [place] [address] Yousif Aparicio, 05/14/2025 Abstract [facility] [place] [facility] [address] [facility] [place] [address] Yousif Aparicio, DO 05/14/2025 Patient Outreach [facility] [address] [place] [phone] Jody Gentile LPN 05/12/2025 Abstract [facility] [place] [facility] [address] [facility] [place] [address] Yousif Aparicio, 05/08/2025 Clinisync Result Encounter [facility]OM[facility] External Department Unsolicited Violet Woody NP 05/06/2025 11:30 AM EDT Routine [facility] [address] [facility] [place] [address] Yousif Aparicio, DO Third trimester ([facility] 29 weeks gestation of ([facility]); size inconsistent with dates ([facility]); Low iron; Dizziness; Nausea 05/06/2025 Bamboo flowsheet [facility] [address] [facility] [place] [address] Yousif Aparicio, 04/29/2025 Refill [facility] [address] [facility] [place] [address] Marva Wagner LPN Nausea and vomiting, unspecified vomiting type 04/17/2025 Patient Outreach [facility] [address] [place] [phone] Jody Gentile LPN 04/09/2025 9:50 AM EDT Routine [facility] [place] [facility] [address] [place] [address] Jody Kimble PA Second trimester ([facility]); 25 weeks gestation of ([facility]) 04/09/2025 Bamboo flowsheet [facility] [address] [facility] [place] [address] Jody Kimble PA 04/01/2025 1:30 PM EDT Ancillary Procedure [facility] [address] [place] [address] 03/19/2025 Orders Only [facility] [address] [place] [address] Anne-Marie Mcleod MA 03/18/2025 Patient Outreach [facility] [address] [place] [phone] Jody Gentile LPN 03/11/2025 10:50 AM EDT Routine [facility] [address] [facility] [place] [phone] Yousif Aparicio DO Screening, , for anatomic survey ([facility]); Well woman exam with routine gynecological exam; Exposure to STD; Vaginal discharge; 21 weeks gestation of ([facility]); Second trimester ([facility]); Nausea and vomiting, unspecified vomiting type 03/11/2025 Clinisync Result Encounter NOMS External Department Unsolicited Yousif Aparicio, 03/11/2025 External Result Encounter NOMS External Department Unsolicited Yousif Aparicio, 03/11/2025 Bamboo flowsheet [facility] [address] [place] [address] Yousif Aparicio DO 02/18/2025 Patient Outreach [facility] [address] [place] [phone] Jody Gentile LPN from Last 3 Months [...] AM EDT Routine [facility] [address] [facility] [place] [phone] Yousif Aparicio, DO [address] [facility] [place] [address] Health Maintenance Due Date Last Done Comments HPV/Cotest 01/12/2024 Influenza Vaccine (#1) 2025 Cervical Cancer Screening 03/11/2028 Pap Smear 03/11/2028 03/11/2025, 06/20/2023 Procedures Procedure Name Priority Date/Time Associated Diagnosis Comments POCT URINALYSIS DIPSTICK Routine 05/20/2025 10:19 AM EDT Third trimester ([facility]) 31 weeks gestation of ([facility]) US OB FOLLOW UP TRANSABDOMINAL APPROACH Routine 05/20/2025 10:01 AM EDT size inconsistent with dates ([facility]) TRANSFERRIN Routine 05/08/2025 9:39 AM EDT [facility] FERRITIN Routine 05/08/2025 9:39 AM EDT ALL CBC WITH AUTO DIFF Routine 9:39 AM EDT GLUCOSE 1 HOUR Routine 05/08/2025 9:39 AM EDT POCT URINALYSIS DIPSTICK Routine 05/06/2025 11:51 AM EDT Third trimester ([facility]) POCT URINALYSIS DIPSTICK Routine 04/09/2025 10:07 AM EDT Second trimester ([facility]) US OB 14+ WEEKS ANATOMY SCAN Routine 04/01/2025 2:18 PM EDT Screening, , for anatomic survey ([facility]) RECURRENT VAGINITIS (HTRX) Routine 03/11/2025 11:55 AM EDT POCT URINALYSIS DIPSTICK Routine 03/11/2025 11:19 AM EDT 21 weeks gestation of ([facility]) Second trimester ([facility]) IGP,APTIMA HPV,AGE GDLN Routine 03/11/2025 10:58 AM EDT PAP SMEAR Routine 03/11/2025 12:00 AM EDT from Last 3 Months Results * POCT urinalysis dipstick manually resulted (05/20/2025 10:19 AM EDT) Only the most recent of4 resultswithin the time period is included. Color, [...] Negative - 1999(20) ++++ mg/dL Urobilinogen, UA 1.0 0.2 - 12 mg/dL Leukocytes, UA Negative Negative - 500+++ Leila/mcL Nitrite, UA Negative Negative - Positive Urine 05/20/2025 10:1 9 AM EDT Violet Woody NP POINT OF CARE TEST ENTER/EDIT ORDERABLES Final Result * US OB follow up transabdominal approach [...] Kobe Sotelo MD us Yousif Aparicio DO IM OB US PROCEDURES Final Resul t * GLUCOSE 1 HOUR (05/08/2025 9:39 AM EDT) GLUCOSE 1 HOUR 121 <130 mg/dL [facility] 05/08/2025 9:39 AM EDT 05/08/2025 9:41 AM EDT Narrative CLINIS[facility] - 05/08/2025 10:01 AM EDT us Violet Woody NP LAB BLOOD ORDERABLES Final Re sult [facility] * (ABNORMAL) TRANSFERRIN (05/08/2025 9:39 AM EDT) TRANSFERRIN 435(A) 192 - 364 mg/dL [facility] Comment: Performed at: [facility] [address] [place], [place] [id number] Speeder Operator: Justice Flor PhD, Phone: [phone] 05/08/2025 9:39 AM EDT 05/08/2025 9:41 AM EDT Narrative CLINISYNC - 05/09/2025 4:07 AM EDT Yousif Markus DO LAB BLOOD ORDERABLES Final Resul t [facility] * (ABNORMAL) [facility] FERRITIN (05/08/2025 9:39 AM EDT) Pathologist [facility] FERRITIN 2.0(L) 8.0 - 252.0 ng/mL [facility] 05/08/2025 9:39 AM EDT 05/08/2025 9:41 AM EDT Narrative CLINISYNC - 05/08/2025 11:07 AM EDT us Yousif Markus DO [facility] Final Result [facility] * (ABNORMAL) ALL CBC WITH AUTO DIFF (05/08/2025 9:39 AM EDT) Pathologist [facility] TB WBC 9.0 4.0 - 11.0 10 3/uL [facility] RBC 3.61(L) 4.20 - 5.40 10 6/uL [...] Narrative CLINISYNC - 05/08/2025 10:04 AM EDT Violet Woody NP CLINIS[facility]NC Final Result [facility] * US OB 14+ weeks anatomy scan [...] RECURRENT VAGINITIS (HTRX) (03/11/2025 11:55 AM EDT) [facility] ATOPOBIUM VAGINAE 0 19.961 - 24.689 ppm 03/12/2025 6:51 AM EDT [facility] ATOPOBIUM VAGINAE Not Detected 19.961 - 24.689 ppm 03/12/2025 6:51 AM EDT [facility] BVAB 2,3 (BACTERIAL VAGINOSIS ASSOCIATED BACTERIA 2, 3); MOBILUNCUS SPP 0 19.961 - 24.689 ppm 03/12/2025 6:51 AM EDT [facility] BVAB 2,3 (BACTERIAL VAGINOSIS ASSOCIATED BACTERIA 2, 3); MOBILUNCUS SPP Not Detected 19.961 - 24.689 ppm 03/12/2025 6:51 AM EDT [facility] TIMOTHY ALBICANS, PARAPSILOSIS, TROPICALIS 0 19.961 - 30.770 ppm 03/12/2025 6:51 AM EDT [facility] TIMOTHY ALBICANS, PARAPSILOSIS, TROPICALIS Not Detected 19.961 - 30.770 ppm 03/12/2025 6:51 AM EDT [facility] TIMOTHY GLABRATA 0 23.000 - 32.138 ppm 03/12/2025 6:51 AM EDT [facility] TIMOTHY GLABRATA Not Detected 23.000 - 32.138 ppm 03/12/2025 6:51 AM EDT [facility] TIMOTHY KRUSEI 0 23.000 - 32.271 ppm 03/12/2025 6:51 AM EDT [facility] TIMOTHY KRUSEI Not Detected 23.000 - 32.271 ppm 03/12/2025 6:51 AM EDT [facility] CHLAMYDIA TRACHOMATIS 0 23.000 - 31.467 ppm 03/12/2025 6:51 AM EDT [facility] CHLAMYDIA TRACHOMATIS Not Detected 23.000 - 31.467 ppm 03/12/2025 6:51 AM EDT [facility] GARDNERELLA VAGINALIS 0 19.961 - 24.689 ppm 03/12/2025 6:51 AM EDT [facility] GARDNERELLA VAGINALIS Not Detected 19.961 - 24.689 ppm 03/12/2025 6:51 AM EDT [facility] MEGASPHAERA (TYPES 1, 2) 0 19.961 - 24.689 ppm 03/12/2025 6:51 AM EDT [facility] MEGASPHAERA (TYPES 1, 2) Not Detected 19.961 - 24.689 ppm 03/12/2025 6:51 AM EDT [facility] NEISSERIA GONORRHOEAE 0 23.000 - 32.117 ppm 03/12/2025 6:51 AM EDT [facility] NEISSERIA GONORRHOEAE Not Detected 23.000 - 32.117 ppm 03/12/2025 6:51 AM EDT [facility] TRICHOMONAS VAGINALIS 0 23.000 - 32.119 ppm 03/12/2025 6:51 AM EDT [facility] TRICHOMONAS VAGINALIS Not Detected 23.000 - 32.119 ppm 03/12/2025 6:51 AM EDT [facility] MYCOPLASMA GENITALIUM 0 19.961 - 24.689 ppm 03/12/2025 6:51 AM EDT [facility] MYCOPLASMA GENITALIUM Not Detected 19.961 - 24.689 ppm 03/12/2025 6:51 AM EDT [facility] Tissue 03/11/2025 11:5 5 AM EDT 03/12/2025 1:28 AM EDT us Yousif Aparicio DO LAB BLOOD ORDERABLES Final Resul t [facility] [address] [place] [address] * IGP,APTIMA HPV,AGE GDLN (03/11/2025 10:58 AM EDT) AGE GDLN ACOG TESTING Note . TB Comment: TESTS RESULT FLAG UNITS REF RANGE LAB Clinician Provided Cytology Information Source.............[employer] Other.............. No. of containers..01 ThinPrep Vial Age Niya STOVEROG Keira... 3065 FLAG LEGEND: L-Low Normal,H-High Normal,LL-Alert Low,HH-Alert High <-Panic Low,>-Panic High,A-Abnormal,AA-Critical Abnormal Performed at: 01 =G [facility] [address] [place] [address] Jesi Kuhn MD, IGP, APTIMA HPV, RFX 16/18,45 Note . [facility] Comment: TESTS RESULT FLAG UNITS REF RANGE LAB DIAGNOSIS: 02 NEGATIVE FOR INTRAEPITHELIAL LESION OR MALIGNANCY. Specimen adequacy: 02 Satisfactory for evaluation. No endocervical component is identified. Performed by: Leonardo [employer] Adviser . 02 Note: Note 02 The Pap [...] <-Panic Low,>-Panic High,A-Abnormal,AA-Critical Abnormal Performed at: [address] [address] Jesi Kuhn MD, HPV APTIMA Negative Negative [facility] Comment: This nucleic acid amplification test detects fourteen high- risk HPV types (16,18,31,33,35,39,45,51,52,56,58,59,66,68) without differentiation. Performed at: =[address] [id number] Speeder Operator: Jesi Kuhn MD, Phone: [phone] Performed at: [address] [id number] Speeder Operator: Jesi Kuhn MD, Phone: [phone] 03/11/2025 10:5 8 AM EDT 03/11/2025 2:56 PM EDT Narrative [facility] - 03/13/2025 11:09 AM EDT SPATULA-ALONE ENDOCERV[facility] us Yousif Aparicio DO LAB BLOOD ORDERABLES Final Resul t [facility] * Pap Smear (03/11/2025 12:00 AM EDT) Swab Cervical swab / Unknown us Yousif Aparicio DO LAB CYTOLOGY ORDERABLES Final Re sult EXTERNAL LAB from Last 3 Months Insurance [employer]
--- OUTSIDE RECORDS SUMMARY | 2025-05-21 13:54 | XMS_ITS | Encounter Summary ---
Author Organization [facility] Address [address] [place] [address] Care Team Providers Care Spinning And Winding Supervisor Name Role Phone Unavailable Primary Care Provider Unavailabl e Encounter Details Date Type Department Care Team (Late Contact Info) Description 09/24/2023 Clinisync Result Encounter N[facility] External Department Unsolicited Jody Hall PA [address] [facility] [address] [place] [id number] Social History Tobacco Use Types Packs/Day Years [...] AM EDT Routine [facility] [address] [facility] [place] [address] Yousif Aparicio DO [address] [facility] [place] [address] documented as of this encounter Procedures Procedure Name Priority Date/Time Associated Diagnosis Comments US OB BPP W NON-STRESS 09/24/2023 7:10 AM EST documented in this encounter Results * US OB BPP W NON-STRESS (09/24/2023 7:10 AM EST) Anatomical Region Laterality Modality Other 09/24/2023 7:10 AM EST Narrative 09/24/2023 7:12 AM EST [address] [address] Ultrasound Report Signed Patient: NOE ERVIN MR#: [id number] : 1995 Acct:[id number] Age/Sex: 28 / F ADM Date: 09/21/23 Loc: US Attending Dr: Jody Hall Ordering Physician: Jody Hall Date of Service: 09/21/23 Procedure(s): US OB BPP w non-stress Accession Number(s): [id number] cc: Jody Hall; FAMILY,HEALTH [place] [id number] Patient Name: NOE ERVIN MRN: [id number] date: 1995 Sex: F Assigned Patient Location: [facility] Current Patient Location: Accession/Order Number: [id number] Exam Date: 09/21/2023 17:15 Report Date: 09/24/2023 [...] M.D. Signed By: 09/24/23711 DD/ 9 TD/TT: Rod Drawer: Procedure Note Radiology, Radiologist, - 11/21/[address] [address] Ultrasound Report Signed Patient: NOE ERVIN MMR#: [id number] : 1995Acct:[id number] Age/Sex: 28 / FADM Date: 09/21/23 Loc: US Attending Dr: Jody Hall Ordering Physician: Jody Hall Date of Service: 09/21/23 Procedure(s): US OB BPP w non-stress Accession Number(s): [id number] cc: Jody Hall; FAMILY,HEALTH SER The [address] [address] Patient Name: NOE ERVIN MRN: [id number] date: 1995 Sex: F Assigned Patient Location: [facility] Current Patient Location: Accession/Order Number: [id number] Exam Date: 09/21/2023 17:15 Report Date: 09/24/2023 [...] Baugh M.D. Signed By:09/24/23711 DD/ 9 TD/TT: Rod Drawer: Jody UREÑA [facility] Final Result documented in this encounter Visit Diagnoses Not on filedocumented in this encounter
--- OUTSIDE RECORDS SUMMARY | 2025-05-21 13:54 | XMS_ITS | Encounter Summary ---
Author Organization [facility] Address [address] [place] [address] Care Team Providers Care Clay Roaster Name Role Phone Unavailable Primary Care Provider Unavailabl e Encounter Details Date Type Department Care Team (Late Contact Info) Description 06/01/2023 Abstract CHARBEL GIANG [address] [facility] [place] [phone] Jody Kimble PA [address] [facility] [address] [place], [facility] Social History Tobacco Use Types Packs/Day Years [...] 11:30 AM EDT Routine CHARBEL GIANG [address] [facility] [place] [phone] Yousif Aparicio DO [address] [facility] [address] [place], [facility] documented as of this encounter Visit Diagnoses Not on filedocumented in this encounter
--- OUTSIDE RECORDS SUMMARY | 2025-05-21 13:54 | XMS_ITS | Encounter Summary ---
Author Organization [facility] Address [address] [place] [address] Care Team Providers Care Moisture Meter Operator Name Role Phone Unavailable Primary Care Provider Unavailabl e Reason for Visit * Reason Comments Med Refill Encounter Details Date Type Department Care Team (Late st Contact Info) Description 05/07/2023 Refill [facility] [address] [place] [address] Yousif Aparicio DO [address] [place], [facility] Missed menses Social History Tobacco Use [...] encounter Miscellaneous Notes * Telephone Encounter - Vanenssa Begum LPN - 05/10/2023 9:05 AM EDT Approving, but needs appt for additional refills. documented in this encounter Plan of Treatment Upcoming Encounters Date Type Department Care Team (Late st Contact Info) Description 06/03/2025 11:30 AM EDT Routine [facility] GI[facility] [address] [place] [address] Yousif Aparicio, [address] [place] [address] documented as of this encounter Visit Diagnoses Diagnosis Missed menses documented in this encounter
--- OUTSIDE RECORDS SUMMARY | 2025-05-21 13:54 | XMS_ITS ---
Author Organization [facility] Address [address] [place] [address] Care Team Providers Care Maintenance Analyst Name Role Phone Unavailable Primary Care Provider Unavailabl e Comprehensive [facility]aternal Care ([facility]) Status:Enrolled (Active) Start date:01/19/2025 Enrollment date:01/20/2025 Enrollment reason:Identified by Health Plan Case Team Name Relationship Phone Jody Gentile LPN(Responsible Staff) Licensed [facility] Nurse [phone] Continued Care and Services Coordination
--- OUTSIDE RECORDS SUMMARY | 2025-05-21 13:54 | XMS_ITS | Clinical Summary ---
Author Organization [facility] Address [address] [place], [place] [id number] Care Team Providers Care Crisis Intervention Specialist Name Role Phone Rodo Lincoln MD Primary Care Provider [phone] Allergies No known active allergies Medications gabapentin [...] Screening Completed 04/26/2020 , 11/20/2019, 06/19/2019 Insurance [facility] Care Teams Crisis Intervention Specialist Relationship Specialty Start Date End Date Rodo Lincoln MD [address] [place] [address] PCP - General Family Medicine 11/08/21
--- OUTSIDE RECORDS SUMMARY | 2025-05-21 13:54 | XMS_ITS | Encounter Summary ---
Author Organization [facility] Address [address] [facility] [place] [address] Care Team Providers Care Web Marketing Analyst Name Role Phone Unavailable Primary Care Provider Unavailabl e Encounter Details Date Type Department Care Team (Late st Contact Info) Description 05/14/2025 Patient Outreach [facility] [address] [place] [address] Jody Gentile LPN [address] [place] [address] Social History Tobacco Use Types Packs/Day Years [...] -2 Score 0 05/14/2025 1:06 PM EDT Jody Gentile LPN documented as of this encounter Progress Notes * Jody Gentile LPN - 05/14/2025 1:03 PM EDT Monthly Outreach. Call to pt. Pt reports she feels baby moving frequently. Appetite and sleep are adequate. Bowels are regular for patient. Pt denies any depression or difficulty coping at this time.Pt reports she is ready with baby items as she has crib, car seat, diapers/wipes and clothing. Medsreconciled. OB OV 05/20/25. documented in this encounter Plan of Treatment Upcoming Encounters Date Type Department Care Team (Late st Contact Info) Description 06/03/2025 11:30 AM EDT Routine [facility] [address] [place] [phone] Yousif Aparicio DO [address] [place] [address] documented as of this encounter Visit Diagnoses Not on filedocumented in this encounter
--- OUTSIDE RECORDS SUMMARY | 2025-05-21 14:21 | XMS_ITS | CCD ---
Author Organization [facility] Care Team Providers Care Dining Room Server Name Role Phone SPICER, ANGELO Unavailable Unavailable SPICER, ANGELO Unavailable Unavailable ROCHELLE ALVARADO Unavailable Unavailable Rochelle Alvarado Primary Care Provider Lima Cornell Attending Unavailab Rochelle Quiñones Primary Care Provider Unavailable Primary Care Provider UnavailRodo Carson Primary Care Provider [phone] FAMILY, HEALTH SERVICES Primary Care Unavaila ble [...] MARKUS ., DR MENENDEZ Consulting Unavailable FAMILY, [facility] Primary Care Unavaila ble MARKUS ., DR MENENDEZ Attending Unavailable MARKUS ., DR MENENDEZ Admitting Unavailable NGOC KWONG Consulting Unavailable RUSLAN LAM Consulting Unavailable [facility], [facility] Primary Care Unavaila ble MARKUS ., DR MENENDEZ Consulting Unavailable MARKUS ., DR MENENDEZ Attending Unavailable MARKUS ., DR MENENDEZ Admitting Unavailable ZIEBER, DR CHRISTINE Benites Consulting Unavailable MARKUS ., DR MENENDEZ Consulting Unavailable [facility], [facility] Primary Care Unavaila ble MARKUS ., DR MENENDEZ Attending Unavailable MARKUS ., DR MENENDEZ Admitting Unavailable MARKUS ., DR MENENDEZ Consulting Unavailable DESTINY KADI R Primary Care Unavailable MARKUS ., DR MENENDEZ Attending Unavailable MARKUS ., DR MENENDEZ Admitting Unavailable ZIEBER, DR CHRISTINE Benites Consulting Unavailable Unavailable Primary Care Provider UnavailMD Rochelle Carpio Primary Care Provider [phone] Yousif Aparicio Attending Provider [phone] ANTHONY PABON Referring Unavailable ROCHELLE ALVARADO Primary Care Unavailable NONE, XXXX Primary Care Physician Unavailab Jayjay Little Attending Unavailable Haydee Gaytan Attending Unavailable Rochelle Alvarado MD Primary Care Provider [phone] Dane Erwin MD Attending Provider [phone] NO FAMILY, PHYSICIAN Primary Care Provider Unava ilable Elfego Muniz MD Admit Provider Leola Smith MD Attending Provider Christine Talamantes MD Other Provider Dane Erwin MD Other Provider Jayjay Freire Attending Unavailable Dane Erwin MD Admit Provider Dane Erwin MD Attending Provider [phone] NO FAMILY, PHYSICIAN Primary Care Unavailable Christine [...] Propensity to adverse reactions to drug (disorder) [facility] Repository (16 sources) buPROPion Drug Allergy 5 [facility] [...] 2024 12:00am lamoTRIgine 25 mg oral tablet (19 sources) Mood Stabilizer, Anti-epileptic Agent Start: 10-21-19 25 take 1 tablet by mouth once daily Lamotrigine 25 mg Tablet Active 25 MG PO Daily 30 October 21, 2024 12:00am levETIRAcetam 500 mg oral tablet (6 sources) Start: 10-17-19 25 take 1 tablet [...] Start: 09-22-2019 take 1 capsule by mo [facility] once daily LINZESS 72 MCG CAPS capsule TAKE 1 CAPSULE BY MOUTH EVERY DAY 0 09/22/2019 Active metoclopramide 10 mg oral tablet (2 sources) Dopamine-2 Receptor Antagonist Start: 05-20-2025 End: 06-19-2025 metoclopramide (Reglan) 10 MG tablet Indications: Nausea and vomiting in ([facility]) Take 1 tablet (10 mg) by mouth in the morning and 1 tablet (10 mg) at noon and 1 tablet (10 mg) in the evening. Take before meals. Take 1 tablet by mouth 30 minutes prior to meals 3 times daily as needed for nausea. 90 tablet 1 05/20/2025 06/19/2025 Active nicotine 2 mg chewing gum (1 source) Cholinergic Nicotinic Agonist Start: 10-21-2024 Nicotine (Polacrilex) 2 mg Gum Active 2 MG BUCCAL Q2H as needed for Nicotine Cravings 60 October 21, 2024 12:00am nitrofurantoin, macrocrystals 25 mg / nitrofurantoin, monohydrate 75 mg oral capsule (2 sources) Nitrofuran Antibacterial Start: 01-19-2025 End: 01-26-2025 take 1 capsule by mouth in the morning nitrofurantoin, macrocrystal-monohy drate, (Macrobid) 100 MG capsule Indications: Urinary tract infection without hematuria, site unspecified Take 1 capsule (100 mg) by mouth in the morning and 1 capsule (100 mg) before bedtime. Do all this for 7 days. 14 capsule 01/19/2025 01/26/2025 Active ondansetron 4 mg oral tablet (20 sources) Serotonin-3 Receptor Antagonist Start: 04-29-2025 End: 05-20-2025 take 1 tablet by mouth every six [...] needed for nausea. 30 tablet 3 04/29/2025 05/20/2025 Discontinued (Other) Start: 03-11-2025 take 1 tablet by naty [...] polysaccharide iron complex 391 mg oral capsule (8 sources) Start: 05-06-20 End: 12-03-19 take 1 capsule by mouth once daily iron polysaccharides (ProFe) 391.3 (180 Fe) MG capsule Indications: Low iron , Dizziness Take 1 capsule (391.3 mg) by mouth Daily 30 capsule 6 05/06/2025 12/02/2025 Active Start: 08-21-2023 End: 08-20-2024 take 1 capsule by mouth in the [...] Vit-Fe Fumarate-FA ( Vitamins) 28-0.8 MG tablet (18 sources) Start: 01-01-2025 End: 01-01-2026 take 1 tablet by mouth once daily Vit-Fe Fumarate-FA ( Vitamins) 28-0.8 MG tablet Indications: Encounter for supervision of normal first in first trimester ([facility]) Take 1 tablet by mouth Daily 30 tablet 11 01/01/2025 01/01/2026 Active Start: 01-01-2025 End: 01-01-2026 take 1 tablet by mouth once daily Vit-Fe Fumarate-FA ( Vitamins) 28-0.8 MG tablet Indications: Encounter for supervision of normal first in first trimester Take 1 tablet by mouth Daily 30 tablet 11 01/01/2025 01/01/2026 Active promethazine hydrochloride 12.5 mg oral tablet (5 sources) Phenothiazine Start: 05-06-2025 End: 08-04-2025 take 1 tablet by mouth every six hours as needed for nausea and vomiting and nausea and nausea promethazine (Phenergan) 12.5 MG tablet Indications: Nausea Take 1 tablet (12.5 mg) by mouth every 6 (six) hours if needed for nausea or vomiting 180 tablet 1 05/06/2025 08/04/2025 Active propranolol hydrochloride 20 mg oral tablet [...] 04, 2017 12:00am START WHEN DISCHARGED FROM [facility] Start: 11-04-2017 End: 11-14-2017 inject 1000 [...] 01/01/2025 Discontinued gabapentin 400 mg oral capsule (20 sources) Anti-epileptic Agent Start: 08-08-2021 gabapentin (NEURONTIN) 400 mg capsule Take by mouth. 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] Onset: 07-10-2022 Chronic Conditions associated with dizziness or vertigo (2 sources) Dizziness; Translations: [Dizziness and giddiness] 05-06-2025 Episodic Deficiency and other anemia (1 source) Iron [...] episode, unspecified] Onset: 11-05-2017 Nausea and vomiting (4 sources) Nausea and vomiting; Translations: [Nausea with vomiting, unspecified] 03-11-2025 Episodic Nutritional deficiencies (2 sources) Serum iron low; Translations: [Iron deficiency] 05-06-2025 Episodic Open wounds of head; neck; and trunk (1 source) Scalp laceration; Translations: [Laceration without foreign body of scalp, initial encounter] Onset: 10-15-2024 Episodic Other aftercare (1 source) 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; Translations: [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] Onset: 12-25-2022 Episodic Other complications of (2 sources) Spotting per vagina in ; Translations: [Spotting in early ] Episodic Other complications of (2 sources) size does not accord with dates; Translations: [Uterine size-date discrepancy, unspecified trimester] 05-06-2025 Episodic Other complications of (2 sources) Vomiting of , unspecified; Translations: [Unspecified vomiting of , unspecified as to episode of care or not applicable] 05-20-2025 Episodic Other connective tissue disease (1 source) Fibromyalgia; Translations: [FIBROMYALGIA] Onset: 12-25-2022 Episodic Other female genital disorders (2 sources) Vaginal discharge; Translations: [Other specified noninflammatory disorders of vagina] 03-11-2025 Episodic Other gastrointestinal disorders (2 sources) Diarrhea; Translations: [Diarrhea, unspecified] 05-20-2025 Episodic Other liver diseases (1 source) Enzyme level - finding; Translations: [Abnormal levels of other serum enzymes] Onset: 10-15-2024 Episodic Other nervous system disorders (1 source) Metabolic encephalopathy; Translations: [METABOLIC ENCEPHALOPATHY] Onset: 12-04-2022 Chronic Other nervous system disorders (5 sources) Toxic encephalopathy; Translations: [Toxic encephalopathy] 10-16-2024 Episodic Other and delivery including normal (19 sources) Urine test positive; Translations: [Normal ] [...] unspecified; Translations: [ALTERED MENTAL STATUS UNSPECIFIED] Onset: 03-15-2023 Episodic Residual codes; unclassified (1 source) Altered [...] [25 weeks gestation of ] 04-09-2025 Episodic Residual codes; unclassified (2 sources) Gestation period, 29 weeks; Translations: [29 weeks gestation of ] 05-06-2025 Episodic Residual codes; unclassified (2 sources) Gestation period, 31 weeks; Translations: [31 weeks gestation of ] 05-20-2025 Episodic Respiratory failure; insufficiency; arrest (adult) (3 [...] Range Facility Urinalysis macro (dipstick) panel (U)on 05-20-2025 Bilirubin, UA Negative Negative - 4(70) +++ mg/dL [facility] Blood, UA Negative Negative - 50 Chriss/mcL [facility] Clarity, UA Clear [facility] Color, UA Yellow [facility] Glucose, UA Negative Negative - 2000(110) ++++ mg/dL [facility] Interpretation and review of laboratory results Normal [facility] Ketones, UA Negative Negative - 160(16) ++++ mg/dL [facility] Leukocytes, UA Negative Negative - 500+++ Leila/mcL [facility] Nitrite, UA Negative Negative - Positive [facility] pH, UA 8 5 - 9 [facility] Protein, UA Negative Negative - 1999(20) ++++ mg/dL [facility] Spec Grav, UA 1.005 1 - 1.03 [facility] Urobilinogen, UA 1.0 0.2 - 12 mg/dL [facility] GLUCOSE 1 HOURon 05-08-2025 Glucose [Mass/Vol] 121 mg/dL NINF - 13 0 mg/dL [facility] Urinalysis macro (dipstick) panel (U)on 05-06-2025 Bilirubin, UA Negative Negative - 4(70) +++ mg/dL [facility] Blood, UA Positive Negative - 50 Chriss/mcL [facility] Comment on above: Large Clarity, UA Clear [facility] Color, UA Yellow [facility] Glucose, UA Negative Negative - 1999(110) ++++ mg/dL [facility] Interpretation and review of laboratory results Abnormal [facility] Ketones, UA Negative Negative - 160(16) ++++ mg/dL [facility] Leukocytes, UA Negative Negative - 500+++ Leila/mcL [facility] Nitrite, UA Negative Negative - Positive [facility] pH, UA 7 5 - 9 [facility] Protein, UA Negative Negative - 1999(20) ++++ mg/dL [facility] Spec Grav, UA 1.01 1 - 1.03 [facility] Urobilinogen, UA 0.2 0.2 - 12 mg/dL [facility] Urinalysis macro (dipstick) panel (U)on 04-09-2025 Bilirubin, UA Negative Negative - 4(70) +++ mg/dL [facility] Blood, UA Negative Negative - 50 Chriss/mcL [facility] Clarity, UA Clear [facility] Color, UA Yellow [facility] Glucose, UA Negative Negative - 1999(110) ++++ mg/dL [facility] Interpretation and review of laboratory results Abnormal [facility] Ketones, UA Negative Negative - 160(16) ++++ mg/dL [facility] Leukocytes, UA Negative Negative - 500+++ Leila/mcL [facility] Nitrite, UA Negative Negative - Positive [facility] pH, UA 8 5 - 9 [facility] Protein, UA Trace Negative - 1999(20) ++++ mg/dL [facility] Spec Grav, UA 1.01 1 - 1.03 [facility] Urobilinogen, UA 0.2 0.2 - 12 mg/dL [facility] IGP,APTIMA HPV,AGE GDLNon AGE GDLN ACOG TESTING Note . [facility] Comment on above: TESTS RESULT FLAG UN ITS REF RANGE LAB Clinician Provided Cytology Information Source.............[employer] Other.............. No. of containers..01 ThinPrep Vial Age Algo ACOG Keira... - FLAG LEGEND: L-Low Normal,H-High Normal,LL-Alert Low,HH-Alert High <-Panic Low,>-Panic High,A-Abnormal,AA-Critical Abnormal Performed at: 01 =G [address] [place] [address] Jesi Kuhn MD, HPV APTIMA Negative Negative [facility] Comment on above: This nucleic acid am plification test detects fourteen high- risk HPV types (16,18,31,33,35,39,45,51,52,56,58,59,66,68) without differentiation. Performed at: =G [facility], [place] [id number] Dining Room Server: Jesi Kuhn MD, Phone: [phone] Performed at: [address] [id number] Dining Room Server: Jesi Kuhn MD, Phone: [phone] IGP, APTIMA HPV, RFX 16/18,45 Note . [facility] Comment on above: TESTS RESULT FLAG UN ITS REF RANGE LAB DIAGNOSIS: 02 NEGATIVE FOR INTRAEPITHELIAL LESION OR MALIGNANCY. Specimen adequacy: 02 Satisfactory for evaluation. No endocervical component is identified. Performed by: 02 Janie Almazan, Sanforizer . 02 Note: Note 02 The Pap [...] High <-Panic Low,>-Panic High,A-Abnormal,AA-Critical Abnormal Performed at: [address] [place] [address], [place] [address] Jesi Kuhn MD, SPATULA-ALONE [facility] RECURRENT VAGINITIS (HTRX)on 03-12-2025 ATOPOBIUM VAGINAE [address] [facility] ATOPOBIUM VAGINAE Not detected [facility] BVAB 2,3 (BACTERIAL VAGINOSIS ASSOCIATED BACTERIA 2, 3); MOBILUNCUS SPP [address] [facility] BVAB 2,3 (BACTERIAL VAGINOSIS ASSOCIATED BACTERIA 2, 3); MOBILUNCUS SPP Not detected [facility] TIMOTHY ALBICANS, PARAPSILOSIS, TROPICALIS 0 [facility] TIMOTHY ALBICANS, PARAPSILOSIS, TROPICALIS Not detected [facility] GLABRATA 0 [facility] TIMOTHY GLABRATA Not detected [facility] TIMOTHY KRUSEI 0 [facility] TIMOTHY KRUSEI Not detected [facility] CHLAMYDIA TRACHOMATIS 0 [facility] CHLAMYDIA TRACHOMATIS Not detected [facility] GARDNERELLA VAGINALIS 0 [facility] GARDNERELLA VAGINALIS Not detected [facility] MEGASPHAERA (TYPES 1, 2) 0 [facility] MEGASPHAERA (TYPES 1, 2) Not detected [facility] MYCOPLASMA GENITALIUM 0 [facility] MYCOPLASMA GENITALIUM Not detected [facility] NEISSERIA GONORRHOEAE 0 [facility] NEISSERIA GONORRHOEAE Not detected [facility] TRICHOMONAS VAGINALIS 0 [facility] TRICHOMONAS VAGINALIS Not detected [facility] US OB 14+ WEEKS ANATOMY SCAN [...] UA Negative Negative - 4(70) +++ mg/dL [facility] Blood, UA Negative Negative - 50 Chriss/mcL [facility] Clarity, UA Clear [facility] Color, UA Yellow [facility] Glucose, UA Negative Negative - 1999(110) ++++ mg/dL [facility] Interpretation and review of laboratory results Normal [facility] Ketones, UA Negative Negative - 160(16) ++++ mg/dL [facility] Leukocytes, UA Negative Negative - 500+++ Leila/mcL [facility] Nitrite, UA Negative Negative - Positive [facility] pH, UA 8.5 5 - 9 [facility] Protein, UA Negative Negative - 1999(20) ++++ mg/dL [facility] Spec Grav, UA 1.02 1 - 1.03 [facility] Urobilinogen, UA 0.2 0.2 - 12 mg/dL [facility] Urinalysis macro (dipstick) panel (U)on 01-19-2025 Bilirubin, UA Negative Negative - 4(70) +++ mg/dL [facility] Blood, UA Positive Negative - 50 Chriss/mcL [facility] Comment on above: large Clarity, UA Cloudy [facility] Color, UA Yellow [facility] Glucose, UA Negative Negative - 1999(110) ++++ mg/dL [facility] Interpretation and review of laboratory results Abnormal [facility] Ketones, UA Negative Negative - 160(16) ++++ mg/dL [facility] Leukocytes, UA Trace Negative - 500+++ Leila/mcL [facility] Nitrite, UA Negative Negative - Positive [facility] pH, UA 7.5 5 - 9 [facility] Protein, UA Trace Negative - 1999(20) ++++ mg/dL [facility] Spec Grav, UA 1.02 1 - 1.03 [facility] Urobilinogen, UA 1.0 0.2 - 12 mg/dL [facility] BOX TESTon 01-07-2025 BOX TEST SENT OUT [facility] BOX1 JB [facility] BOX2 01/07/2025 [facility] HCG ( test) Ql (U)o n 01-01-2025 Preg Test, Ur Positive Negative [facility] No Panel Informationon 01-01 Interpretation and review of laboratory results Abnormal [facility] US OB TRANSVAGINALon 025 US OB TRANSVAGINAL [...] II, MD, PHD at 08-Jan-2025 02:06:49 PM [facility] Normal Not Available Comment on above: Order Comment: US OB TRANSVAGINAL No LMP recorded. Urinalysis macro (dipstick) panel (U)on 01-01-2025 Bilirubin, UA Negative Negative - 4(70) +++ mg/dL [facility] Blood, UA Negative Negative - 50 Chriss/mcL [facility] Clarity, UA Clear [facility] Color, UA Yellow [facility] Glucose, UA Negative Negative - 1999(110) ++++ mg/dL [facility] Ketones, UA Negative Negative - 160(16) ++++ mg/dL [facility] Leukocytes, UA Trace Negative - 500+++ Leila/mcL [facility] Nitrite, UA Negative Negative - Positive [facility] pH, UA 7 5 - 9 [facility] Protein, UA Negative Negative - 1999(20) ++++ mg/dL [facility] Spec Grav, UA 1.02 1 - 1.[address] [facility] Urobilinogen, UA 0.2 0.2 - 12 mg/dL [facility] Alanine aminotransferase [En zymatic activity/volume] in Serum or PlasmaOrdered By: Dane Erwin on 10-19-2024 ALT [Catalytic activity/Vol] Alanine aminotransferase [Enzymatic activity/volume] in Serum or Plasma High 7-52 [facility] Albumin [Mass/volume] in Ser um or Plasma by Bromocresol green (BCG) dye binding methoOrdered By: Dane Erwin on 10-19-2024 Albumin BCG dye [Mass/Vol] Albumin [Mass/volume] in Serum or Plasma by Bromocresol green (BCG) dye binding metho 3.5-5.7 [facility] Alkaline phosphatase [Enzyma tic activity/volume] in Serum or PlasmaOrdered By: Dane Erwin on 10-19-2024 ALP [Catalytic activity/Vol] Alkaline phosphatase [Enzymatic activity/volume] in Serum or Plasma High 34-104 [facility] Aspartate aminotransferase [ Enzymatic activity/volume] in Serum or PlasmaOrdered By: Dane Erwin on 10-19-2024 AST [Catalytic activity/Vol] Aspartate aminotransferase [Enzymatic activity/volume] in Serum or Plasma 13-39 [facility] Bilirubin.total [Mass/volume ] in Serum or PlasmaOrdered By: Dane Erwin on 10-19-2024 Bilirubin [Mass/Vol] Bilirubin.total [Mass/volume] in Serum or Plasma 0.3-1.0 [facility] Calcium [Mass/volume] in Ser um or PlasmaOrdered By: Dane Erwin on 10-19-2024 Calcium [Mass/Vol] Calcium [Mass/volume ] in Serum or Plasma 8.6-10.3 [facility] Carbon dioxide, total [Moles /volume] in Serum or PlasmaOrdered By: Dane Erwin on 10-19-2024 CO2 [Moles/Vol] Carbon dioxide, tota l [Moles/volume] in Serum or Plasma High 21.0-31.0 [facility] Chloride [Moles/volume] in S lizette or PlasmaOrdered By: Dane Erwin on 10-19-2024 Chloride [Moles/Vol] Chloride [Moles/vol ume] in Serum or Plasma 98-107 [facility] Comprehensive Metabolic Pane perez 10-19-2024 Albumin [Mass/Vol] 4.0 g/dL Normal 3.5-5.7 [facility] Comment on above: Performed By: #### C MP #### [address] Albumin/Globulin [Mass ratio] 1.7 {ratio} Normal [facility] Comment on above: Performed By: #### C MP #### [address] ALP [Catalytic activity/Vol] 117 U/L High 34-104 [facility] Comment on above: Performed By: #### C MP #### [facility] [address] [id number] [facility] ALT [Catalytic activity/Vol] 131 U/L High 7-52 [facility] Comment on above: Performed By: #### C MP #### [address] Anion gap [Moles/Vol] 9.1 mmol/L Normal 6.0-15.0 [facility] Comment on above: Performed By: #### C MP #### [place] [id number] [place] AST [Catalytic activity/Vol] 34 U/L Normal 13-39 [facility] Comment on above: Performed By: #### C MP #### [address] Bilirubin [Mass/Vol] 0.5 mg/dL Normal 0.3-1.0 [facility] Comment on above: Performed By: #### C MP #### [address] Calcium [Mass/Vol] 9.8 mg/dL Normal 8.6-10.3 [facility] Comment on above: Performed By: #### C MP #### [address] Chloride [Moles/Vol] 101 mmol/L Normal 98-107 [facility] Comment on above: Performed By: #### C MP #### [address] CO2 [Moles/Vol] 33.1 mmol/L High 21.0-31.0 [facility] Comment on above: Performed By: #### C MP #### [address] Creatinine [Mass/Vol] 0.74 mg/dL Normal 0.60-1.20 [facility] Comment on above: Performed By: #### C MP #### [address] Creatinine Clr Calc Pharmacy 98.70 Normal [facility] Comment on above: Result Comment: PERF ORMED BY: [place] [address] PATHOLOGIST VOCATIONAL TRAINING DIRECTOR MARQUITA BOLAÑOS M.D. Performed By: #### C MP #### [address] GFR/1.73 sq M.predicted MDRD (S/P/Bld) [Vol rate/Area] mL/min/{1.73_m2} Normal [facility] Comment on above: Performed By: #### C MP #### [address] Globulin (S) [Mass/Vol] 2.4 g/dL Normal [facility] Comment on above: Performed By: #### C MP #### [address] Glucose [Mass/Vol] 67 mg/dL Low 70-100 [facility] Comment on above: Result Comment: [place] Glucose Reference Range is dependent on time and content of last meal. Glucose of more than 200 mg/dL in a nonstressed, ambulatory subject supports the diagnosis of Diabetes Mellitus. ADA recommended reference range Performed By: #### C MP #### [address] Potassium [Moles/Vol] 4.2 mmol/L Normal 3.5-5.1 [facility] Comment on above: Performed By: #### C MP #### [address] Protein [Mass/Vol] 6.4 g/dL Normal 6.4-8.9 [facility] Comment on above: Performed By: #### C MP #### [address] Sodium [Moles/Vol] 139 mmol/L Normal 136-145 [facility] Comment on above: Performed By: #### C MP #### [address] Urea nitrogen [Mass/Vol] 17 mg/dL Normal 7-25 [facility] Comment on above: Performed By: #### C MP #### [address] Creatinine [Mass/volume] in Serum or PlasmaOrdered By: Dane Erwin on 10-19-2024 Creatinine [Mass/Vol] Creatinine [Mass/v olume] in Serum or Plasma 0.60-1.20 [facility] Globulin Calc (S) [Mass/Vol] Ordered By: Dane Erwin on 10-19-2024 Globulin (S) [Mass/Vol] Serum globulin measurement by calculation (mass/volume) [facility] Glucose [Mass/volume] in Ser um or PlasmaOrdered By: Dane Erwin on 10-19-2024 Glucose [Mass/Vol] Glucose [Mass/volume ] in Serum or Plasma Low 70-100 [facility] Comment on above: ADA recommended refe rence rangeRandom Glucose Reference Range is dependent on time and content of last meal. Glucose of more than 200 mg/dL in a nonstressed, ambulatory subject supports the diagnosis of Diabetes Mellitus. No Panel InformationOrdered By: Dane Erwin on 10-19-2024 Estimated GFR (CKD-EPI) > 60.0 mL/Min [facility] Creatinine Clearance (Chem 98.70 [facility] Potassium [Moles/volume] in Serum or PlasmaOrdered By: Dane Erwin on 10-19-2024 Potassium [Moles/Vol] Potassium [Moles/v olume] in Serum or Plasma 3.5-5.1 [facility] Protein [Mass/volume] in Ser um or PlasmaOrdered By: Dane Erwin on 10-19-2024 Protein [Mass/Vol] Protein [Mass/volume ] in Serum or Plasma 6.4-8.9 [facility] Serum or plasma albumin/glob ulin mass ratioOrdered By: Dane Erwin on 10-19-2024 Albumin/Globulin [Mass ratio] Serum or plasma albumin/globulin mass ratio [facility] Serum or plasma anion gap de terminationOrdered By: Dane Erwin on 10-19-2024 Anion gap [Moles/Vol] Serum or plasma an ion gap determination 6.0-15.0 [facility] Sodium [Moles/volume] in Ser um or PlasmaOrdered By: Dane Erwin on 10-19-2024 Sodium [Moles/Vol] Sodium [Moles/volume ] in Serum or Plasma 136-145 [facility] Urea nitrogen [Mass/volume] in Serum or PlasmaOrdered By: Dane Erwin on 10-19-2024 Urea nitrogen [Mass/Vol] Urea nitrogen [Mass/volume] in Serum or Plasma 04-10 [facility] Cholesterol [Mass/volume] in Serum or PlasmaOrdered By: Dane Erwin on 10-18-2024 Cholesterol [Mass/Vol] Cholesterol [Mass /volume] in Serum or Plasma Low 140-200 [facility] Comment on above: Chol less than 200 m g/dl low riskChol 201-239 mg/dl borderline riskChol 240 mg/dl and greater high risk Cholesterol in HDL [Mass/vol ume] in Serum or PlasmaOrdered By: Dane Erwin on 10-18-2024 Cholesterol in HDL [Mass/Vol] Serum or plasma high density lipoprotein (HDL) cholesterol measurement [facility] Comment on above: HDL CHOL ATP-III CLA SSIFICATION Cardiovascular RiskHDL > or equal to 60 mg/dL LOWHDL < 40 mg/dL HIGH Cholesterol in LDL Calc [Mas s/Vol]Ordered By: Dane Erwin on 10-18-2024 Cholesterol in LDL [Mass/Vol] Cholesterol in LDL [Mass/volume] in Serum or Plasma by calculation 0-100 [facility] Comment on above: LDL ATP III CLASSIFI CATIONLDL less than 100 mg/dL OptimalLDL 100-129 mg/dL Near or above optimalLDL 130-159 mg/dL Borderline highLDL 160-189 mg/dL HighLDL greater than 189 mg/dL Very high Cholesterol in VLDL Calc [Ma ss/Vol]Ordered By: Dane Erwin on 10-18-2024 Cholesterol in VLDL [Mass/Vol] Cholesterol in VLDL [Mass/volume] in Serum or Plasma by calculation [facility] Lipid Panelon 10-18-2024 Cholesterol [Mass/Vol] 115 mg/dL Low 140-200 [facility] Comment on above: Result Comment: Chol less than 200 mg/dl low risk Chol 201-239 mg/dl borderline risk Chol 240 mg/dl and greater high risk Performed By: #### U RDS #### [address] Cholesterol in HDL [Mass/Vol] 36 mg/dL Normal [facility] Comment on above: Result Comment: HDL CHOL ATP-III CLASSIFICATION Cardiovascular Risk HDL > or equal to 60 mg/dL LOW HDL < 40 mg/dL HIGH Performed By: #### U RDS #### [address] Cholesterol.total/Chol esterol in HDL [Mass ratio] 3.2 {ratio} Normal <5.0 [facility] Comment on above: Performed By: #### U RDS #### [address] LDL Cholesterol,Calculated 55 mg/dL Normal 0-100 [facility] Comment on above: Result Comment: LDL ATP III CLASSIFICATION LDL less than 100 mg/dL Optimal LDL 100-129 mg/dL Near or above optimal LDL 130-159 mg/dL Borderline high LDL 160-189 mg/dL High LDL greater than 189 mg/dL Very high Performed By: #### U RDS #### [address] Triglyceride w/Reflex 120 mg/dL Normal 0-149 [facility] Comment on above: Result Comment: TRIG ATP III CLASSIFICATION TRIG less than 150 mg/dL Normal TRIG 150-199 mg/dL Borderline high TRIG 200-500 mg/dL High TRIG greater than 500 mg/dL Very high Standard traceable to the Center for Disease Conrtrol and Prevention (CDC) test method. Performed By: #### U RDS #### [address] VLDL CHOLESTEROL 24 mg/dL Normal [facility] Comment on above: Performed By: #### U RDS #### [address] Serum or plasma total choles terol/high density lipoprotein (HDL) cholesterol mass ratOrdered By: Dane Erwin on 10-18-2024 Cholesterol.total/Chol esterol in HDL [Mass ratio] Serum or plasma total cholesterol/high density lipoprotein (HDL) cholesterol mass rat <5.0 [facility] Thyroid Stim Hormone w/Rflxo n 10-18-2024 Thyroid Stim Hormone w/Rflx 2.83 u[iU]/mL Normal 0.45-5.33 [facility] Comment on above: Performed By: #### U RDS #### [facility] [address] [id number] [facility] Thyrotropin [Units/volume] i n Serum or PlasmaOrdered By: Dane Erwin on 10-18-2024 TSH Qn Thyrotropin [Units/volume] in Serum or Plasma 0.45-5.33 [facility] Triglyceride [Mass/volume] i n Serum or PlasmaOrdered By: Dane Erwin on 10-18-2024 Triglyceride [Mass/Vol] Triglyceride [Mass/volume] in Serum or Plasma 0-149 [facility] Comment on above: TRIG ATP III CLASSIF ICATIONTRIG less than 150 mg/dL NormalTRIG 150-199 mg/dL Borderline highTRIG 200-500 mg/dL High TRIG greater than 500 mg/dL Very highStandard traceable to the Center for Disease Conrtrol and Prevention (CDC) test method. Vitamin D 25 Hydroxy Totalon 10-18-2024 Vitamin D 25 Hydroxy Total 10.8 ng/mL Low 30-100 [facility] Comment on above: Result Comment: YULIA MIN D STATUS 25(OH)VITAMIN D RANGE (ng/mL) Deficient <20 Insufficient 20 to <30 Sufficient 30 to 100 Reference: Sari Taylor, Mayito SNYDER, et al. Evaluation,treatment, and prevention of vitamin D deficiency; an Endocrine Society clinical practice guideline. JCEM. 2010; 96(7):1911-30. PERFORMED BY: [place] [address] PATHOLOGIST VOCATIONAL TRAINING DIRECTOR MARQUITA BOLAÑOS M.D. Performed By: #### U RDS #### [facility] [address] [id number] [facility] Vitamin D+Metabolites [Mass/ volume] in Serum or PlasmaOrdered By: Dane Erwin on 10-18-2024 Vitamin D+Metabolites [Mass/Vol] Vitamin D+Metabolites [Mass/volume] in Serum or Plasma Low 30-100 [facility] Comment on above: VITAMIN D STATUS 25( [place])VITAMIN D RANGE (ng/mL) Deficient <20 Insufficient 20 to <30Sufficient 30 to 100Reference: Thaddeus Taylorkley [place], Mayito SNYDER, et al. Evaluation,treatment, and prevention of vitamin D deficiency; an Endocrine Society clinical practice guideline. JCEM. 2010; 96(7):1911-30. LIZBETH Antinuclear Antibodieson 10-17-2024 Antinuclear Abs, IFA Positive Critically abnormal . [facility] Comment on above: Result Comment: Nega tive <1:80 Borderline 1:80 Positive >1:80 Performed By: #### U RDS #### [address] Note 1 Comment Normal . [facility] Comment on above: Result Comment: Mojgan morgan Potential Disease Association Homogeneous Systemic Lupus Erythematosus, Drug Induced Systemic Lupus Erythematosus, Chronic Autoimmune hepatitis, Juvenile Idiopathic Arthritis Speckled Sjogren Syndrome, Systemic Lupus Erythematosus, Subacute Cutaneous Lupus, Lupus, Congenital Heart Block, Mixed Connective Tissue Disease, Scleroderma-diffuse, Scleroderma-Autoimmune Myositis Overlap Syndrome, Systemic Lupus Nwqkjbvfbcqrv-Qlgvqfxmlyi-Nxtraoahsd Myositis Overlap Syndrome, Systemic Autoimmune Rheumatic Disease, [...] Cytopenias, Linear Scleroderma, Antiphospholipid Syndrome Performed at: [facility] [id number] Dining Room Server: Justice Flor PhD, Phone: [phone] PERFORMED BY: [place] [address] PATHOLOGIST VOCATIONAL TRAINING DIRECTOR MARQUITA BOLAÑOS M.D. Performed By: #### U RDS #### [address] Speckled Pattern 1 High . [facility] Comment on above: Result Comment: Dens e Fine Speckled pattern is noted. This pattern suggests the presence of DFS70 antibody which has a low prevalence in systemic autoimmune rheumatic diseases. ICAP nomenclature: AC-2,4,5,29 Performed By: #### U RDS #### [address] Alanine aminotransferase [En zymatic activity/volume] in Serum or PlasmaOrdered By: Leola Smith on 10-17-2024 ALT [Catalytic activity/Vol] Alanine aminotransferase [Enzymatic activity/volume] in Serum or Plasma High 7-52 [facility] Albumin [Mass/volume] in Ser um or Plasma by Bromocresol green (BCG) dye binding methoOrdered By: Leola Smith on 10-17-2024 Albumin BCG dye [Mass/Vol] Albumin [Mass/volume] in Serum or Plasma by Bromocresol green (BCG) dye binding metho Low 3.5-5.7 [facility] Alkaline phosphatase [Enzyma tic activity/volume] in Serum or PlasmaOrdered By: Leola Smith on 10-17-2024 ALP [Catalytic activity/Vol] Alkaline phosphatase [Enzymatic activity/volume] in Serum or Plasma High 34-104 [facility] Aspartate aminotransferase [ Enzymatic activity/volume] in Serum or PlasmaOrdered By: Leola Smith on 10-17-2024 AST [Catalytic activity/Vol] Aspartate aminotransferase [Enzymatic activity/volume] in Serum or Plasma 13-39 [facility] Basophils Auto (Bld) [#/Vol] Ordered By: Leola Smith on 10-17-2024 Basophils (Bld) [#/Vol] Automated basophil count 0.0-0.2 [facility] Basophils/100 WBC Auto (Bld) Ordered By: Leola Smith on 10-17-2024 Basophils/100 WBC (Bld) Automated basophil % . [facility] Bilirubin.total [Mass/volume ] in Serum or PlasmaOrdered By: Leola Smith on 10-17-2024 Bilirubin [Mass/Vol] Bilirubin.total [Mass/volume] in Serum or Plasma 0.3-1.0 [facility] Calcium [Mass/volume] in Ser um or PlasmaOrdered By: Leola Smith on 10-17-2024 Calcium [Mass/Vol] Calcium [Mass/volume ] in Serum or Plasma Low 8.6-10.3 [facility] Carbon dioxide, total [Moles /volume] in Serum or PlasmaOrdered By: Leola Smith on 10-17-2024 CO2 [Moles/Vol] Carbon dioxide, tota l [Moles/volume] in Serum or Plasma 21.0-31.0 [facility] Chloride [Moles/volume] in S lizette or PlasmaOrdered By: Leola Smith on 10-17-2024 Chloride [Moles/Vol] Chloride [Moles/vol ume] in Serum or Plasma High 98-107 [facility] Complete Blood Count Auto Di ffon 10-17-2024 Basophils (Bld) [#/Vol] 0.0 10*3/uL Normal 0.0-0.2 [facility] Comment on above: Result Comment: PERF ORMED BY: [place] [address] PATHOLOGIST VOCATIONAL TRAINING DIRECTOR MARQUITA BOLAÑOS M.D. Performed By: #### C MP, CBC #### [address] Basophils/100 WBC (Bld) 0.5 % Normal . [facility] Comment on above: Performed By: #### C MP, CBC #### [address] Eosinophils (Bld) [#/Vol] 0.1 10*3/uL Normal 0.0-0.45 [facility] Comment on above: Performed By: #### C MP, CBC #### [address] Eosinophils/100 WBC (Bld) 1.2 % Normal . [facility] Comment on above: Performed By: #### C MP, CBC #### [address] Erythrocyte distribution width (RBC) [Ratio] 17.3 % High 11.9-15.3 [facility] Comment on above: Performed By: #### C MP, CBC #### [address] Hematocrit (Bld) [Volume fraction] 31.1 % Low 34.0-46.4 [facility] Comment on above: Performed By: #### C MP, CBC #### [address] Hemoglobin (Bld) [Mass/Vol] 10.4 g/dL Low 11.8-15.4 [facility] Comment on above: Performed By: #### C MP, CBC #### [address] Lymphocytes (Bld) [#/Vol] 2.1 10*3/uL Normal 1.00-4.8 [facility] Comment on above: Performed By: #### C MP, CBC #### [address] Lymphocytes/100 WBC (Bld) 49.2 % Normal . [facility] Comment on above: Performed By: #### C MP, CBC #### [address] MCH (RBC) [Entitic mass] 26.7 pg Normal 24.7-34.3 [facility] Comment on above: Performed By: #### C MP, CBC #### [address] MCV (RBC) [Entitic vol] 79.9 fL Low 80-100 [facility] Comment on above: Performed By: #### C MP, CBC #### [address] Mean Corpuscular HGB Conc 33.4 g/dL Normal 32.0-35.0 [facility] Comment on above: Performed By: #### C MP, CBC #### [address] Monocytes (Bld) [#/Vol] 0.3 10*3/uL Normal 0.0-0.8 [facility] Comment on above: Performed By: #### C MP, CBC #### [address] Monocytes/100 WBC (Bld) 7.7 % Normal . [facility] Comment on above: Performed By: #### C MP, CBC #### [address] Neutrophils (Bld) [#/Vol] 1.8 10*3/uL Normal 1.8-7.7 [facility] Comment on above: Performed By: #### C MP, CBC #### [address] Neutrophils/100 WBC (Bld) 41.4 % Normal . [facility] Comment on above: Performed By: #### C MP, CBC #### [address] NRBC% 0.1 /100{WBC} Normal 0-0.5 [facility] Comment on above: Performed By: #### C MP, CBC #### [address] Platelet mean volume (Bld) [Entitic vol] 9.2 fL Normal 6.3-10.7 [facility] Comment on above: Performed By: #### C MP, CBC #### [address] Platelets (Bld) [#/Vol] 190 10*3/uL Normal 150-450 [facility] Comment on above: Performed By: #### C MP, CBC #### [address] RBC (Bld) [#/Vol] 3.89 10*6/uL Normal 3.60-5.00 [facility] Comment on above: Performed By: #### C MP, CBC #### [address] WBC (Bld) [#/Vol] 4.3 10*3/uL Normal 3.8-11.6 [facility] Comment on above: Performed By: #### C MP, CBC #### [address] Comprehensive Metabolic Pane perez 10-17-2024 Albumin [Mass/Vol] 3.3 g/dL Low 3.5-5.7 [facility] Comment on above: Performed By: #### C MP, CBC #### [address] Albumin/Globulin [Mass ratio] 1.7 {ratio} Normal [facility] Comment on above: Performed By: #### C MP, CBC #### [address] ALP [Catalytic activity/Vol] 125 U/L High 34-104 [facility] Comment on above: Performed By: #### C MP, CBC #### [address] ALT [Catalytic activity/Vol] 191 U/L High 7-52 [facility] Comment on above: Performed By: #### C MP, CBC #### [address] Anion gap [Moles/Vol] 6.7 mmol/L Normal 6.0-15.0 [facility] Comment on above: Performed By: #### C MP, CBC #### [address] AST [Catalytic activity/Vol] 29 U/L Normal 13-39 [facility] Comment on above: Performed By: #### C MP, CBC #### [address] Bilirubin [Mass/Vol] 0.5 mg/dL Normal 0.3-1.0 [facility] Comment on above: Performed By: #### C MP, CBC #### [address] Calcium [Mass/Vol] 7.9 mg/dL Low 8.6-10.3 [facility] Comment on above: Performed By: #### C MP, CBC #### [address] Chloride [Moles/Vol] 110 mmol/L High 98-107 [facility] Comment on above: Performed By: #### C MP, CBC #### [address] CO2 [Moles/Vol] 26.6 mmol/L Normal 21.0-31.0 [facility] Comment on above: Performed By: #### C MP, CBC #### [address] Creatinine [Mass/Vol] 0.58 mg/dL Low 0.60-1.20 [facility] Comment on above: Performed By: #### C MP, CBC #### [address] Creatinine Clr Calc Pharmacy 125.83 Normal [facility] Comment on above: Result Comment: PERF ORMED BY: [place] [address] PATHOLOGIST VOCATIONAL TRAINING DIRECTOR MARQUITA BOLAÑOS M.D. Performed By: #### C MP, CBC #### [place] [address] [place] GFR/1.73 sq M.predicted MDRD (S/P/Bld) [Vol rate/Area] mL/min/{1.73_m2} Normal [facility] Comment on above: Performed By: #### C MP, CBC #### [place] [address] [place] Globulin (S) [Mass/Vol] 2.0 g/dL Normal [facility] Comment on above: Performed By: #### C MP, CBC #### [address] Glucose [Mass/Vol] 104 mg/dL High 70-100 [facility] Comment on above: Result Comment: [place] Glucose Reference Range is dependent on time and content of last meal. Glucose of more than 200 mg/dL in a nonstressed, ambulatory subject supports the diagnosis of Diabetes Mellitus. ADA recommended reference range Performed By: #### C MP, CBC #### [address] Potassium [Moles/Vol] 3.3 mmol/L Low 3.5-5.1 [facility] Comment on above: Performed By: #### C MP, CBC #### [address] Protein [Mass/Vol] 5.3 g/dL Low 6.4-8.9 [facility] Comment on above: Performed By: #### C MP, CBC #### [place] [address] [place] Sodium [Moles/Vol] 140 mmol/L Normal 136-145 [facility] Comment on above: Performed By: #### C MP, CBC #### [address] Urea nitrogen [Mass/Vol] 9 mg/dL Normal 7-25 [facility] Comment on above: Performed By: #### C MP, CBC #### [address] Creatine Kinaseon 10-17-2024 CK [Catalytic activity/Vol] 51 U/L Normal 30-223 [facility] Comment on above: Result Comment: PERF ORMED BY: [place] [address] PATHOLOGIST VOCATIONAL TRAINING DIRECTOR MARQUITA BOLAÑOS M.D. Performed By: #### C K #### [address] Creatine kinase [Enzymatic a ctivity/volume] in Serum or PlasmaOrdered By: Leola Smith on 10-17-2024 CK [Catalytic activity/Vol] Creatine kinase [Enzymatic activity/volume] in Serum or Plasma 30- [facility] Creatinine [Mass/volume] in Serum or PlasmaOrdered By: Leola Smith on 10-17-2024 Creatinine [Mass/Vol] Creatinine [Mass/v olume] in Serum or Plasma Low 0.60-1.20 [facility] ECG 12 lead ECGon 10-17-2024 ECG 12 lead ECG [facility] [place] [address] Electrocardiograph Report Signed Patient: Noe Duran MR#: [id number] : 1995 Acct:[id number] Age/Sex: 29 / F ADM Date: 10/15/24 Loc: Room: [address] [place] [address] Type: ADM IN Attending Dr: Leola Smith [...] rhythm Normal ECG Confirmed by Lina Meredith ([id number]) on 10/17/2024 1:51:09 PM Referred By: Electronically Signed By: Lina Meredith Transcribed By: MUS Signed By Lina Meredith MD 5 [id number] Normal [facility] Eosinophils Auto (Bld) [#/Vo l]Ordered By: Leola Smith on 10-17-2024 Eosinophils (Bld) [#/Vol] Automated eosinophil count 0.0-0.45 [facility] Eosinophils/100 WBC Auto (Bl d)Ordered By: Leola Smith on 10-17-2024 Eosinophils/100 WBC (Bld) Automated eosinophil % . [facility] Erythrocyte distribution wid th Auto (RBC) [Ratio]Ordered By: Leola Smith on 10-17-2024 Erythrocyte distribution width (RBC) [Ratio] Erythrocyte distribution width [Ratio] by Automated count High 11.9-15.3 [facility] Globulin Calc (S) [Mass/Vol] Ordered By: Leola Smith on 10-17-2024 Globulin (S) [Mass/Vol] Serum globulin measurement by calculation (mass/volume) [facility] Glucose [Mass/volume] in Ser um or PlasmaOrdered By: Leola Smith on 10-17-2024 Glucose [Mass/Vol] Glucose [Mass/volume ] in Serum or Plasma High 70-100 [facility] Comment on above: ADA recommended refe rence rangeRandom Glucose Reference Range is dependent on time and content of last meal. Glucose of more than 200 mg/dL in a nonstressed, ambulatory subject supports the diagnosis of Diabetes Mellitus. HIV 1/O/2 Antigen/Antibodyon 10-17-2024 HIV Screen 4th Generation Non-Reactive Normal Non Reactive [facility] Comment on above: Result Comment: HIV- 1/HIV-2 antibodies and HIV-1 p24 antigen were NOT detected. There is no laboratory evidence of HIV infection. HIV Negative Performed at: [address] [place] [id number] Dining Room Server: Justice Flor PhD, Phone: [phone] Performed By: #### R IL W RFX, HIV SCREEN #### [facility] , HIV antibody and antigen sandoval elOrdered By: Leola Smith on 10-17-2024 HIV 1+2 Ab+HIV1 p24 Ag IA Ql HIV 1 and HIV-2 antibody assay with HIV-1 p24 antigen detection Non Reactive [facility] Comment on above: HIV-1/HIV-2 antibodi es and HIV-1 p24 antigen were NOTdetected. There is no laboratory evidence of HIV infection.HIV NegativePerformed at: - [facility] [address] [place], [place] [id number] Director: Justice Flor PhD, Phone: [phone] Hematocrit Auto (Bld) [Volum e fraction]Ordered By: Leoal Smith on 10-17-2024 Hematocrit (Bld) [Volume fraction] Hematocrit [Volume Fraction] of Blood by Automated count Low 34.0-46.4 [facility] Hemoglobin [Mass/volume] in BloodOrdered By: Leola Smith on 10-17-2024 Hemoglobin (Bld) [Mass/Vol] Hemoglobin [Mass/volume] in Blood Low 11.8-15.4 [facility] Leukocytes [#/volume] correc ramesh for nucleated erythrocytes in Blood by Automated counOrdered By: Leola Smith on 10-17-2024 WBC corrected for nucl RBC Auto (Bld) [#/Vol] Leukocytes [#/volume] corrected for nucleated erythrocytes in Blood by Automated coun 3.8-11.6 [facility] Lymphocytes Auto (Bld) [#/Vo l]Ordered By: Leola Smith on 10-17-2024 Lymphocytes (Bld) [#/Vol] Lymphocytes [#/volume] in Blood by Automated count 1.00-4.8 [facility] Lymphocytes/100 WBC Auto (Bl d)Ordered By: Leola Smith on 10-17-2024 Lymphocytes/100 WBC (Bld) Lymphocytes/100 leukocytes in Blood by Automated count . [facility] MCH Auto (RBC) [Entitic mass ]Ordered By: Leola Smith on 10-17-2024 MCH (RBC) [Entitic mass] MCH [Entitic mass] by Automated count 24.7-34.3 [facility] MCHC Auto (RBC) [Mass/Vol]Or dered By: Leola Smith on 10-17-2024 MCHC (RBC) [Mass/Vol] MCHC [Mass/volume] by Automated count 32.0-35.0 [facility] MCV Auto (RBC) [Entitic vol] Ordered By: Leola Smith on 10-17-2024 MCV (RBC) [Entitic vol] MCV [Entitic volume] by Automated count Low 80-100 [facility] Monocytes Auto (Bld) [#/Vol] Ordered By: Leola Smith on 10-17-2024 Monocytes (Bld) [#/Vol] Automated blood monocyte count 0.0-0.8 [facility] Monocytes/100 WBC Auto (Bld) Ordered By: Leola Smith on 10-17-2024 Monocytes/100 WBC (Bld) Automated monocyte % . [facility] Neutrophils Auto (Bld) [#/Vo l]Ordered By: Leola Smith on 10-17-2024 Neutrophils (Bld) [#/Vol] Neutrophils [#/volume] in Blood by Automated count 1.8-7.7 [facility] Neutrophils/100 WBC Auto (Bl d)Ordered By: Leola Smith on 10-17-2024 Neutrophils/100 WBC (Bld) Automated neutrophil % . [facility] No Panel InformationOrdered By: Leola Smith on 10-17-2024 Anti-Nuclear Antibody Comment 2 Comment . [facility] Comment on above: Pattern Potential Di sease Association Homogeneous Systemic Lupus Erythematosus, Drug Induced Systemic Lupus Erythematosus, Chronic Autoimmune hepatitis, Juvenile Idiopathic Arthritis Speckled Sjogren Syndrome, Systemic Lupus Erythematosus, Subacute Cutaneous Lupus, Lupus, Congenital Heart Block, Mixed Connective Tissue Disease, Scleroderma-diffuse, Scleroderma-Autoimmune Myositis Overlap Syndrome, Systemic Lupus Vlcrurlcdrdbe-Vljrxniupyt-Kdmornxfni Myositis Overlap Syndrome, Systemic Autoimmune Rheumatic Disease, [...] Cytopenias, Linear Scleroderma, Antiphospholipid Syndrome Performed at: [facility] [place], [place] [id number] Director: Justice Flor PhD, Phone: [phone] Estimated GFR (CKD-EPI) > 60.0 mL/Min [facility] Creatinine Clearance (Chem 125.83 [facility] Nucleated erythrocytes [Pres ence] in Blood by Automated countOrdered By: Leola Smith on 10-17-2024 Nucleated RBC Auto Ql (Bld) Nucleated erythrocytes [Presence] in Blood by Automated count 0-0.5 [facility] Platelet mean volume Auto (B ld) [Entitic vol]Ordered By: Leola Smith on 10-17-2024 Platelet mean volume (Bld) [Entitic vol] Platelet mean volume [Entitic volume] in Blood by Automated count 6.3-10.7 [facility] Platelets Auto (Bld) [#/Vol] Ordered By: Leola Smith on 10-17-2024 Platelets (Bld) [#/Vol] Platelets [#/volume] in Blood by Automated count 150-450 [facility] Potassium [Moles/volume] in Serum or PlasmaOrdered By: Leola Smith on 10-17-2024 Potassium [Moles/Vol] Potassium [Moles/v olume] in Serum or Plasma Low 3.5-5.1 [facility] Protein [Mass/volume] in Ser um or PlasmaOrdered By: Leola Smith on 10-17-2024 Protein [Mass/Vol] Protein [Mass/volume ] in Serum or Plasma Low 6.4-8.9 [facility] RBC Auto (Bld) [#/Vol]Ordere d By: Leola Smith on 10-17-2024 RBC (Bld) [#/Vol] Erythrocytes [#/volu me] in Blood by Automated count 3.60-5.00 [facility] RPR w/rfx to Quant TP Abson 10-17-2024 RPR, Rfx Quant RPR Non-Reactive Normal Non Reactive [facility] Comment on above: Result Comment: Perf ormed at: - [facility] [address] [id number] Dining Room Server: Justice Flor PhD, Phone: [phone] PERFORMED BY: [facility] [place] [address] PATHOLOGIST VOCATIONAL TRAINING DIRECTOR MARQUITA BOLAÑOS M.D. Performed By: #### R IL W RFX, HIV SCREEN #### [facility] , Serum RPR testOrdered By: Ra jossie Smith on 10-17-2024 Reagin Ab RPR Ql (S) Reagin Ab [Presence ] in Serum by RPR Non Reactive [facility] Comment on above: Performed at: [place] [id number] Director: Justice Flor PhD, Phone: [phone] Serum nuclear antibody titer Ordered By: Leola Smith on 10-17-2024 Nuclear Ab (S) [Titer] Serum nuclear ant ibody titer Abnormal . [facility] Comment on above: Negative <1:80 Borde rline 1:80 Positive >1:80 Serum or plasma albumin/glob ulin mass ratioOrdered By: Leola Smith on 10-17-2024 Albumin/Globulin [Mass ratio] Serum or plasma albumin/globulin mass ratio [facility] Serum or plasma anion gap de terminationOrdered By: Leola Smith on 10-17-2024 Anion gap [Moles/Vol] Serum or plasma an ion gap determination 6.0-15.0 [facility] Serum speckled pattern antin uclear antibody (LIZBETH) titerOrdered By: Leola Smith on 10-17-2024 Speckled nuclear Ab pattern (S) [Titer] Serum speckled pattern antinuclear antibody (LIZBETH) titer High . [facility] Comment on above: Dense Fine Speckled pattern is noted. This pattern suggeststhe presence of DFS70 antibody which has a low prevalencein systemic autoimmune rheumatic diseases.ICAP nomenclature: AC-2,4,5,29 Sodium [Moles/volume] in Ser um or PlasmaOrdered By: Leola Smith on 10-17-2024 Sodium [Moles/Vol] Sodium [Moles/volume ] in Serum or Plasma 136-145 [facility] Urea nitrogen [Mass/volume] in Serum or PlasmaOrdered By: Leola Smith on 10-17-2024 Urea nitrogen [Mass/Vol] Urea nitrogen [Mass/volume] in Serum or Plasma 04-10 [facility] WBC Auto (Bld) [#/Vol]Ordere d By: Leola Smith on 10-17-2024 WBC (Bld) [#/Vol] Leukocytes [#/volume ] in Blood by Automated count 3.8-11.6 [facility] Ammoniaon 10-16-2024 Ammonia (P) [Moles/Vol] 27 umol/L Normal [facility] Comment on above: Result Comment: PERF ORMED BY: [place] [address] PATHOLOGIST VOCATIONAL TRAINING DIRECTOR MARQUITA BOLAÑOS M.D. Performed By: #### A MM #### [address] Ammonia [Moles/volume] in Pl asmaOrdered By: Elfego Muniz on 10-16-2024 Ammonia (P) [Moles/Vol] Ammonia [Moles/volume] in Plasma [facility] Anisocytosis LM Ql (Bld)Orde red By: Elfego Muniz on 10-16-2024 Anisocytosis Ql (Bld) Anisocytosis [Pres ence] in Blood by Light microscopy [facility] Choriogonadotropin.beta subu nit [Units/volume] in Serum or PlasmaOrdered By: Leola Smith on 10-16-2024 HCG.beta subunit Qn Choriogonadotropin.b eta subunit [Units/volume] in Serum or Plasma [facility] Comprehensive Metabolic Pane perez 10-16-2024 Albumin [Mass/Vol] 3.7 g/dL Normal 3.5-5.7 [facility] Comment on above: Performed By: #### A MM #### [facility] [address] Albumin/Globulin [Mass ratio] 1.8 {ratio} Normal [facility] Comment on above: Performed By: #### A MM #### [facility] [address] [place] [address] [place] ALP [Catalytic activity/Vol] 133 U/L High 34-104 [facility] Comment on above: Performed By: #### A MM #### [address] ALT [Catalytic activity/Vol] 278 U/L High 7-52 [facility] Comment on above: Performed By: #### A MM #### [address] Anion gap [Moles/Vol] 10.9 mmol/L Normal 6.0-15.0 [facility] Comment on above: Performed By: #### A MM #### [address] AST [Catalytic activity/Vol] 54 U/L High 13-39 [facility] Comment on above: Performed By: #### A MM #### [address] Bilirubin [Mass/Vol] 0.8 mg/dL Normal 0.3-1.0 [facility] Comment on above: Performed By: #### A MM #### [address] Calcium [Mass/Vol] 8.1 mg/dL Low 8.6-10.3 [facility] Comment on above: Performed By: #### A MM #### [address] Chloride [Moles/Vol] 110 mmol/L High 98-107 [facility] Comment on above: Performed By: #### A MM #### [address] CO2 [Moles/Vol] 23.7 mmol/L Normal 21.0-31.0 [facility] Comment on above: Performed By: #### A MM #### [address] Creatinine [Mass/Vol] 0.44 mg/dL Low 0.60-1.20 [facility] Comment on above: Performed By: #### A MM #### [place] [address] [place] Creatinine Clr Calc Pharmacy 164.10 Normal [facility] Comment on above: Performed By: #### A MM #### [address] GFR/1.73 sq M.predicted MDRD (S/P/Bld) [Vol rate/Area] mL/min/{1.73_m2} Normal [facility] Comment on above: Performed By: #### A MM #### [address] Globulin (S) [Mass/Vol] 2.1 g/dL Normal [facility] Comment on above: Performed By: #### A MM #### [address] Glucose [Mass/Vol] 86 mg/dL Normal 70-100 [facility] Comment on above: Result Comment: [facility] Glucose Reference Range is dependent on time and content of last meal. Glucose of more than 200 mg/dL in a nonstressed, ambulatory subject supports the diagnosis of Diabetes Mellitus. ADA recommended reference range Performed By: #### A MM #### [address] Potassium [Moles/Vol] 3.6 mmol/L Normal 3.5-5.1 [facility] Comment on above: Performed By: #### A MM #### [address] Protein [Mass/Vol] 5.8 g/dL Low 6.4-8.9 [facility] Comment on above: Performed By: #### A MM #### [address] Sodium [Moles/Vol] 141 mmol/L Normal 136-145 [facility] Comment on above: Performed By: #### A MM #### [address] Urea nitrogen [Mass/Vol] 10 mg/dL Normal 7-25 [facility] Comment on above: Performed By: #### A MM #### [address] Diagnostic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 [facility] [address] [place] [address] Dr. Hemanth Kerr Lymphocytes/100 WBC (Bld) 31.3 % Normal 20.5-60.0 [facility] Comment on above: Performed By: #### C BC #### [facility] [address] [place] [address] Dr. Hemanth Kerr MANUAL DIFF REQ NO Normal [facility] Comment on above: Performed By: #### C BC #### [facility] [address] [place] [address] Dr. Hemanth Kerr MCH (RBC) [Entitic mass] 27.8 pg Normal 26.7-34.0 [facility] Comment on above: Performed By: #### C BC #### [facility] [address] [place] [address] Dr. Hemanth Kerr MCHC (RBC) [Mass/Vol] 32.0 g/dL Normal 29.9-35.2 [facility] Comment on above: Performed By: #### C BC #### [facility] [address] [place] [address] Dr. Hemanth Kerr MCV (RBC) [Entitic vol] 86.9 fL Normal 81.0-99.0 [facility] Comment on above: Performed By: #### C BC #### [facility] [address] [place] [address] Dr. Hemanth Kerr MONO # 0.4 103/ul Normal 0.3-0.8 [facility] Comment on above: Performed By: #### C BC #### [facility] [address] [place] [address] Dr. Hemanth Kerr Monocytes/100 WBC (Bld) 8.0 % Normal 1.7-12.0 [facility] Comment on above: Performed By: #### C BC #### [facility] [address] [place] [address] Dr. Hemanth Kerr NEUT # 3.1 103/ul Normal 1.4-6.5 [facility] Comment on above: Performed By: #### C BC #### [facility] [address] [place] [address] Dr. Hemanth Kerr Neutrophils/100 WBC (Bld) 56.5 % Normal 43.0-75.0 [facility] Comment on above: Performed By: #### C BC #### [facility] [address] [place] [address] Dr. Hemanth Kerr Platelet mean volume (Bld) [Entitic vol] 10.3 fL Normal 9.5-13.5 [facility] Comment on above: Performed By: #### C BC #### [facility] [address] [place] [address] Dr. Hemanth Kerr PLT 258 103/ul Normal 150-450 [facility] Comment on above: Performed By: #### C BC #### [facility] [address] [place] [address] Dr. Hemanth Kerr RBC 4.28 106/ul Normal 4.20-5.40 [facility] Comment on above: Performed By: #### C BC #### [facility] [address] [address] [address] Hemanth Kerr WBC 5.4 103/ul Normal 4.0-11.0 [facility] Comment on above: Performed By: #### C BC #### [facility] [address] [place] [address] Dr. Hemanth Kerr PROF 14(COMP METB)on 023 Albumin [Mass/Vol] 3.1 g/dL Critically low 3.4-5.0 [facility] Comment on above: Performed By: #### C MP #### [facility] [address] [place] [address] Dr. Hemanth Kerr Albumin/Globulin [Mass ratio] 1.3 {ratio} Normal [facility] Comment on above: Performed By: #### C MP #### [facility] [address] [place] [address] Dr. Hemanth Kerr ALP [Catalytic activity/Vol] 56 U/L Normal 46-116 [facility] Comment on above: Performed By: #### C MP #### [facility] [address] [place] [address] Dr. Hemanth Kerr ALT [Catalytic activity/Vol] 34 U/L Normal 14-59 [facility] Comment on above: Performed By: #### C MP #### [facility] [address] [place] [address] Dr. Hemanth Kerr Anion gap [Moles/Vol] 7.0 mmol/L Normal [facility] Comment on above: Performed By: #### C MP #### [facility] [address] [place] [address] Dr. Hemanth Kerr AST [Catalytic activity/Vol] 29 U/L Normal 15-37 [facility] Comment on above: Performed By: #### C MP #### [facility] [address] [address] [address] Hemanth Kerr Bilirubin [Mass/Vol] 0.4 mg/dL Normal 0.2-1.0 [facility] Comment on above: Performed By: #### C MP #### [facility] [address] [address] [address] Hemanth Kerr Calcium [Mass/Vol] 8.3 mg/dL Critically low 8.5-10.1 [facility] Comment on above: Performed By: #### C MP #### [facility] [address] [address] [address] Hemanth Kerr Chloride [Moles/Vol] 110 mmol/L Critically high 98-107 [facility] Comment on above: Performed By: #### C MP #### [facility] [address] [address] [address] Hemanth Kerr CO2 [Moles/Vol] 27.6 mmol/L Normal 21.0-32.0 [facility] Comment on above: Performed By: #### C MP #### [facility] [address] [address] [address] Hemanth Kerr Creatinine [Mass/Vol] 0.61 mg/dL Normal 0.55-1.02 [facility] Comment on above: Performed By: #### C MP #### [facility] [address] [address] [address] Hemanth Kerr EGFR-AF SLOVENIAN >60 Normal >=60 [facility] Comment on above: Performed By: #### C MP #### [facility] [address] [address] [address] Hemanth Kerr EGFR-NON AF SLOVENIAN >60 Normal >=60 [facility] Comment on above: Performed By: #### C MP #### [facility] [address] [address] Dr. Hemanth Kerr Globulin (S) [Mass/Vol] 2.4 g/dL Normal [facility] Comment on above: Performed By: #### C MP #### [facility] [address] [address] [address] Hemanth Kerr Glucose [Mass/Vol] 110 mg/dL Critically high 74-106 [facility] Comment on above: Performed By: #### C MP #### [facility] [address] [address] [address] Hemanth Kerr Potassium [Moles/Vol] 2.6 mmol/L Critically low 3.5-5.1 [facility] Comment on above: Performed By: #### C MP #### [facility] [address] [address] [address] Hemanth Kerr Protein [Mass/Vol] 5.5 g/dL Critically low 6.4-8.2 [facility] Comment on above: Performed By: #### C MP #### [facility] [address] [address] [address] Hemanth Kerr Sodium [Moles/Vol] 142 mmol/L Normal 136-145 [facility] Comment on above: Performed By: #### C MP #### [facility] [address] [address] [address] Hemanth Kerr Urea nitrogen [Mass/Vol] 12.0 mg/dL Normal 7.0-18.0 [facility] Comment on above: Performed By: #### C MP #### [facility] [address] [address] [address] Hemanth Kerr Urea nitrogen/Creatinine [Mass ratio] 19.7 mg/mg Normal [facility] Comment on above: Performed By: #### C MP #### [facility] [address] [address] [address] Hemanth Kerr XR HIP LT 2 [...] by: ALIX GRANADOS Date: 2022-11-28 22:13 Normal [facility] ACETAMINOPHENon 11-28-2022 Acetaminophen [Mass/Vol] ug/mL Critically low 10.0-30.0 [facility] Comment on above: Performed By: #### C MP #### [facility] [address] [place] [address] Dr. Hemanth Kerr ACETONE SERUMon 11-28-2022 ACETONE Negative Normal NEGATIVE [facility] Comment on above: Performed By: #### P REG #### [facility] [address] [place] [address] Dr. Hemanth Kerr AMMONIAon 11-28-2022 Ammonia (P) [Moles/Vol] 24 umol/L Normal 11-32 [facility] Comment on above: Performed By: #### L ACT #### [facility] [address] [place] [address] Dr. Hemanth Kerr CBC AUTO DIFFon 11-28-2022 BASO # 0.0 103/ul Normal 0.0-0.1 [facility] Comment on above: Performed By: #### L ACT #### [facility] [address] [place] [address] Dr. Hemanth Kerr Basophils/100 WBC (Bld) 0.4 % Normal 0.2-2.0 [facility] Comment on above: Performed By: #### L ACT #### [facility] [address] [place] [address] Dr. Hemanth Kerr EO # 0.3 103/ul Normal 0.0-0.7 [facility] Comment on above: Performed By: #### L ACT #### [facility] [address] [place] [address] Dr. Hemanth Kerr Eosinophils/100 WBC (Bld) 3.1 % Normal 0.9-7.0 [facility] Comment on above: Performed By: #### L ACT #### [facility] [address] [place] [address] Dr. Hemanth Kerr Erythrocyte distribution width (RBC) [Ratio] 14.3 % Normal 11.0-15.0 [facility] Comment on above: Performed By: #### L ACT #### [facility] [address] [place], [place] [id number] Dr. Hemanth Kerr Hematocrit (Bld) [Volume fraction] 41.3 % Normal 36.0-48.0 [facility] Comment on above: Performed By: #### L ACT #### [facility] [address] [place] [address] Dr. Hemanth Kerr Hemoglobin (Bld) [Mass/Vol] 13.3 g/dL Normal 12.0-16.0 [facility] Comment on above: Performed By: #### L ACT #### [facility] [address] [place] [address] Dr. Hemanth Kerr IG # 0.02 10e3/ul Normal 0.00-0.03 [facility] Comment on above: Performed By: #### L ACT #### [facility] [address] [place] [address] Dr. Hemanth Kerr IG % 0.2 % Normal 0.0-0.5 [facility] Comment on above: Performed By: #### L ACT #### [facility] [address] [place] [address] Dr. Hemanth Kerr LYMPH # 2.4 103/ul Normal 1.2-3.8 [facility] Comment on above: Performed By: #### L ACT #### [facility] [address] [place] [address] Dr. Hemanth Kerr Lymphocytes/100 WBC (Bld) 26.3 % Normal 20.5-60.0 [facility] Comment on above: Performed By: #### L ACT #### [facility] [address] [place] [address] Dr. Hemanth Kerr MANUAL DIFF REQ NO Normal [facility] Comment on above: Performed By: #### L ACT #### [facility] [address] [place] [address] Dr. Hemanth Kerr MCH (RBC) [Entitic mass] 27.4 pg Normal 26.7-34.0 [facility] Comment on above: Performed By: #### L ACT #### [facility] [address] [place] [address] Dr. Hemanth Kerr MCHC (RBC) [Mass/Vol] 32.2 g/dL Normal 29.9-35.2 [facility] Comment on above: Performed By: #### L ACT #### [facility] [address] [place] [address] Dr. Hemanth Kerr MCV (RBC) [Entitic vol] 85.0 fL Normal 81.0-99.0 [facility] Comment on above: Performed By: #### L ACT #### [facility] [address] [address] [address] Hemanth Kerr MONO # 0.7 103/ul Normal 0.3-0.8 [facility] Comment on above: Performed By: #### L ACT #### [facility] [address] [place] [address] Dr. Hemanth Kerr Monocytes/100 WBC (Bld) 7.3 % Normal 1.7-12.0 [facility] Comment on above: Performed By: #### L ACT #### [facility] [address] [place] [address] Dr. Hemanth Kerr NEUT # 5.7 103/ul Normal 1.4-6.5 [facility] Comment on above: Performed By: #### L ACT #### [facility] [address] [place] [address] Dr. Hemanth Kerr Neutrophils/100 WBC (Bld) 62.7 % Normal 43.0-75.0 [facility] Comment on above: Performed By: #### L ACT #### [facility] [address] [place] [address] Dr. Hemanth Kerr Platelet mean volume (Bld) [Entitic vol] 10.6 fL Normal 9.5-13.5 [facility] Comment on above: Performed By: #### L ACT #### [facility] [address] [place] [address] Dr. Hemanth Kerr PLT 347 103/ul Normal 150-450 [facility] Comment on above: Performed By: #### L ACT #### [facility] [address] [place] [address] Dr. Hemanth Kerr RBC 4.86 106/ul Normal 4.20-5.40 [facility] Comment on above: Performed By: #### L ACT #### [facility] [address] [place], [place] [address] Dr. Hemanth Kerr WBC 9.1 103/ul Normal 4.0-11.0 [facility] Comment on above: Performed By: #### L ACT #### [facility] [address] [place], [place] [address] CSPINE WO CONon [...] KAMILLA MILLS Date: 2022-11-28 17:54 Normal [facility] CT HEAD WO CONon 11-28-2022 CT [...] KAMILLA MILLS Date: 2022-11-28 18:40 Normal [facility] CULTURE BLOODon 11-28-2022 Microscopic examination of blood, culture Culture Observations: NO GROWTH AT 5 DAYS. Normal [facility] Comment on above: Performed By: #### C BC #### [facility] [address] [place] [address] Dr. Hemanth Kerr Microscopic examination of blood, culture Culture Observations: NO GROWTH AT 5 DAYS. Normal [facility] Comment on above: Performed By: #### B [id number] #### [facility] [address] [place] [address] Dr. Hemanth Kerr Covid-19 PCR ([facility])on 11-15 SARS-CoV-2 (COVID-19) RNA ELMO+probe Ql (Unsp spec) Not detected Normal NOT DETECTED [facility] Comment on above: Result Comment: When [...] for this test is supported by the [employer] Supervisor of Health and Human Service's declaration that [...] used). Performed By: #### L ACT #### [facility] [address] [place] [address] Dr. Hemanth Kerr DRUG SCREEN RAPID (URINE)on 11-28-2022 AMP Positive Abnormal NEGATIVE [facility] Comment on above: Performed By: #### P REG #### [facility] [address] [place] [address] Dr. Hemanth Kerr BAR Negative Normal NEGATIVE [facility] Comment on above: Performed By: #### P REG #### [facility] [address] [place] [address] Dr. Hemanth Kerr BUP Negative Normal NEGATIVE [facility] Comment on above: Performed By: #### P REG #### [facility] [address] [place] [address] Dr. Hemanth Kerr BZO Negative Normal NEGATIVE [facility] Comment on above: Performed By: #### P REG #### [facility] [address] [place] [address] Dr. Hemanth Kerr YOLANDA Negative Normal NEGATIVE [facility] Comment on above: Performed By: #### P REG #### [facility] [address] [place] [address] Dr. Hemanth Kerr CUT-OFFS SEE BELOW Normal [facility] Comment on above: Result Comment: AMP [...] ng/mL Performed By: #### P REG #### [facility] [address] [place] [address] Dr. Hemanth Kerr DRUG CUT HEADER DRUG CLASS TEST SYST EM CUT-OFF CONCENTRATIONS ARE FOLLOWS: Normal [facility] Comment on above: Performed By: #### P REG #### [facility] [address] [place] [address] Dr. Hemanth Kerr mAMP Positive Abnormal NEGATIVE [facility] Comment on above: Performed By: #### P REG #### [facility] [address] [place] [address] Dr. Hemanth Kerr MTD Negative Normal NEGATIVE [facility] Comment on above: Performed By: #### P REG #### [facility] [address] [place] [address] Dr. Hemanth Kerr OPI Negative Normal NEGATIVE [facility] Comment on above: Performed By: #### P REG #### [facility] [address] [place] [address] Dr. Hemanth Kerr OXY Negative Normal NEGATIVE [facility] Comment on above: Performed By: #### P REG #### [facility] [address] [place] [address] Dr. Hemanth Kerr PCP Negative Normal NEGATIVE [facility] Comment on above: Performed By: #### P REG #### [facility] [address] [place] [address] Dr. Hemanth Kerr PPX Negative Normal NEGATIVE [facility] Comment on above: Performed By: #### P REG #### [facility] [address] [place] [address] Dr. Hemanth Kerr TCA Negative Normal NEGATIVE [facility] Comment on above: Performed By: #### P REG #### [facility] [address] [place] [address] Dr. Hemanth Kerr THC Negative Normal NEGATIVE [facility] Comment on above: Performed By: #### P REG #### [facility] [address] [place] [address] Dr. Hemanth Kerr ER URINE PROFILEon 3 Bilirubin Ql (U) Negative Normal NEGATIVE [facility] Comment on above: Performed By: #### P REG #### [facility] [address] [place] [address] Dr. Hemanth Kerr Clarity (U) CLEAR Normal CLEAR [facility] Comment on above: Performed By: #### P REG #### [facility] [address] [place] [address] Dr. Hemanth Kerr Color (U) LT. YELLOW Normal YELLOW [facility] Comment on above: Performed By: #### P REG #### [facility] [address] [place] [address] Dr. Hemanth HOLMAN A micrscopic examina tion will be performed if indicated. Normal [facility] Comment on above: Performed By: #### P REG #### [facility] [address] [place] [address] Dr. Hemanth Kerr Glucose Ql (U) Negative Normal NEGATIVE [facility] Comment on above: Performed By: #### P REG #### [facility] [address] [place] [address] Dr. Hemanth Kerr Hemoglobin Ql (U) Negative Normal NEGATIVE [facility] Comment on above: Performed By: #### P REG #### [facility] [address] [place] [address] Dr. Hemanth Kerr Ketones Ql (U) Negative Normal NEGATIVE [facility] Comment on above: Performed By: #### P REG #### [facility] [address] [place] [address] Dr. Hemanth Kerr LEUKOCYTES Negative Normal NEGATIVE [facility] Comment on above: Performed By: #### P REG #### [facility] [address] [place] [address] Dr. Hemanth Kerr Nitrite Ql (U) Positive Abnormal NEGATIVE [facility] Comment on above: Performed By: #### P REG #### [facility] [address] [place] [address] Dr. Hemanth Kerr pH (U) 7.5 [pH] Normal 5-9 [facility] Comment on above: Performed By: #### P REG #### [facility] [address] [place] [address] Dr. Hemanth Kerr SPEC GRAVITY 1.020 Normal 1.005-<=1.02 5 [facility] Comment on above: Performed By: #### P REG #### [facility] [address] [place] [address] Dr. Hemanth Kerr UA PROTEIN TRACE Normal NEGATIVE/ TRACE [facility] Comment on above: Performed By: #### P REG #### [facility] [address] [address] [address] Hemanth Kerr UR MICRO IND INDICATED Normal [facility] Comment on above: Performed By: #### P REG #### [facility] [address] [place] [address] Dr. Hemanth Kerr Urobilinogen Qn (U) 1.0 {Jose'U}/dL Normal 0.2 - 1. 0 [facility] Comment on above: Performed By: #### P REG #### [facility] [address] [place] [address] Dr. Hemanth Kerr ETHANOL (BLD ALC)on 11-29-19 ALC NOTE NOTE: 80 mg/dl is th e legal limit for a blood alcohol level Normal [facility] Comment on above: Performed By: #### C MP #### [facility] [address] [place] [address] Dr. Hemanth Kerr Ethanol [Mass/Vol] mg/dL Normal [facility] Comment on above: Performed By: #### C MP #### [facility] [address] [place] [address] Dr. Hemanth Kerr LACTATE/LACTIC ACIDon 2022 Lactate [Moles/Vol] 0.7 mmol/L Normal 0.4-2.0 [facility] Comment on above: Performed By: #### L ACT #### [facility] [address] [place] [address] Dr. Hemanth Kerr Lactate [Moles/Vol] 9.0 mmol/L Critically high 0.4-2.0 [facility] Comment on above: Performed By: #### L ACT #### [facility] [address] [place] [address] Dr. Hemanth Kerr PH VENOUS BLOODon 11-28-2022 PCO2 VENOUS 36.6 mmHg Critically low 40.0-52.0 [facility] Comment on above: Performed By: #### P HVEN #### [facility] [address] [place] [address] Dr. Hemanth Kerr pH VENOUS 7.354 Normal 7.330-7.430 [facility] Comment on above: Performed By: #### P HVEN #### [facility] [address] [address] [address] Hemanth Kerr POINT OF CARE GLUCOSEon 11-15 Glucose [Mass/Vol] 127 mg/dL Critically high 74-106 T [facility] Comment on above: Performed By: #### C BC #### [facility] [address] [address] [address] Hemanth Kerr PREG HCG QUALon 11-28-2022 , QUAL Negative Normal NEGATIVE [facility] Comment on above: Performed By: #### P REG #### [facility] [address] [place] [address] Dr. Hemanth Kerr PROF 14(COMP METB)on 023 Albumin [Mass/Vol] 3.7 g/dL Normal 3.4-5.0 [facility] Comment on above: Performed By: #### L ACT #### [facility] [address] [address] [address] Hemanth Kerr Albumin/Globulin [Mass ratio] 1.3 {ratio} Normal [facility] Comment on above: Performed By: #### L ACT #### [facility] [address] [address] [address] Hemanth Kerr ALP [Catalytic activity/Vol] 72 U/L Normal 46-116 [facility] Comment on above: Performed By: #### L ACT #### [facility] [address] [address] [address] Hemanth Kerr ALT [Catalytic activity/Vol] 42 U/L Normal 14-59 [facility] Comment on above: Performed By: #### L ACT #### [facility] [address] [address] [address] Hemanth Kerr Anion gap [Moles/Vol] 16.3 mmol/L Normal [facility] Comment on above: Performed By: #### L ACT #### [facility] [address] [place] [address] Dr. Hemanth Kerr AST [Catalytic activity/Vol] 45 U/L Critically high 15-37 [facility] Comment on above: Performed By: #### L ACT #### [facility] [address] [address] [address] Hemanth Kerr Bilirubin [Mass/Vol] 0.4 mg/dL Normal 0.2-1.0 [facility] Comment on above: Performed By: #### L ACT #### [facility] [address] [address] [address] Hemanth Kerr Calcium [Mass/Vol] 8.8 mg/dL Normal 8.5-10.1 [facility] Comment on above: Performed By: #### L ACT #### [facility] [address] [address] [address] Hemanth Kerr Chloride [Moles/Vol] 107 mmol/L Normal 98-107 [facility] Comment on above: Performed By: #### L ACT #### [facility] [address] [address] [address] Hemanth Kerr CO2 [Moles/Vol] 21.8 mmol/L Normal 21.0-32.0 [facility] Comment on above: Performed By: #### L ACT #### [facility] [address] [address] [address] Hemanth Kerr Creatinine [Mass/Vol] 1.32 mg/dL Critically high 0.55-1.02 [facility] Comment on above: Performed By: #### L ACT #### [facility] [address] [address] [address] Hemanth Kerr EGFR-AF SLOVENIAN 58 mL/min/1.73m2 Critically low >=60 [facility] Comment on above: Performed By: #### L ACT #### [facility] [address] [address] [address] Hemanth Kerr EGFR-NON AF SLOVENIAN 48 mL/min/1.73m2 Critically low >=60 [facility] Comment on above: Performed By: #### L ACT #### [facility] [address] [address] [address] Hemanth Kerr Globulin (S) [Mass/Vol] 2.9 g/dL Normal [facility] Comment on above: Performed By: #### L ACT #### [facility] [address] [address] [address] Hemanth Kerr Glucose [Mass/Vol] 143 mg/dL Critically high 74-106 T [facility] Comment on above: Performed By: #### L ACT #### [facility] [address] [address] [address] Hemanth Kerr Potassium [Moles/Vol] 3.1 mmol/L Critically low 3.5-5.1 [facility] Comment on above: Performed By: #### L ACT #### [facility] [address] [address] [address] Hemanth Kerr Protein [Mass/Vol] 6.6 g/dL Normal 6.4-8.2 [facility] Comment on above: Performed By: #### L ACT #### [facility] [address] [address] [address] Hemanth Kerr Sodium [Moles/Vol] 142 mmol/L Normal 136-145 [facility] Comment on above: Performed By: #### L ACT #### [facility] [address] [address] [address] Hemanth Kerr Urea nitrogen [Mass/Vol] 17.0 mg/dL Normal 7.0-18.0 [facility] Comment on above: Performed By: #### L ACT #### [facility] [address] [address] [address] Hemanth Kerr Urea nitrogen/Creatinine [Mass ratio] 12.9 mg/mg Normal [facility] Comment on above: Performed By: #### L ACT #### [facility] [address] [address] [address] Hemanth Kerr PROTIMEon 11-28-2022 INR Coag (PPP) [Relative time] 0.97 {INR} Normal [facility] Comment on above: Performed By: #### P T, PTT #### [facility] [address] [address] [address] Hemanth Kerr INR GUIDELINES SEE BELOW Normal [facility] Comment on above: Result Comment: CHAN RED INR: 2.0 - 3.0 CONDITIONS NOT LISTED BELOW 2.5 - 3.5 FOR PROSTHETIC HEART VALVE REPLACEMENT 2.5 - 3.5 RECURRENT THROMBOSIS Performed By: #### P T, PTT #### [facility] [address] [place] [address] Dr. Hemanth Kerr PT Coag (PPP) [Time] 10.3 s Normal 9.0-11.6 [facility] Comment on above: Performed By: #### P T, PTT #### [facility] [address] [place] [address] Dr. Hemanth Kerr PTTon 11-28-2022 aPTT Coag (Bld) [Time] 25.4 s Normal 22.3-36.2 [facility] Comment on above: Performed By: #### P T, PTT #### [facility] [address] [place] [address] Dr. Hemanth Kerr SALICYLATEon 11-28-2022 SALICYLATE <2.8 Normal <=19.9 [facility] Comment on above: Performed By: #### C MP #### [facility] [address] [place] [address] Dr. Hemanth Kerr TROPONIN, HIGH SENSITIVITYon 11-28-2022 HSTROP 4.2 pg/mL Normal 4.0-51.3 [facility] Comment on above: Result Comment: CUT- OFF POINTS HAVE BEEN ESTABLISHED BASED ON THE FOURTH UNIVERSAL DEFINITIONS OF MYOCARDIAL INFARCTION. THE UPPER REFERENCE LIMIT (URL) OF TROPONIN, DEFINED THE 99TH PERCENTILE OF cTnI DISTRIBUTION IN A REFERENCE POPULATION, HAS BEEN CONFIRMED THE DECISION THRESHOLD FOR IN DIAGNOSIS. Performed By: #### C MP #### [facility] [address] [place] [address] Dr. Hemanth Kerr TSHon 11-28-2022 TSH 3.476 uIU/mL Normal 0.358-3.740 [facility] Comment on above: Performed By: #### L ACT #### [facility] [address] [place] [address] Dr. Hemanth Kerr URINE MICROSCOPIC ONLYon BACTERIA LARGE Abnormal NONE SEEN [facility] Comment on above: Performed By: #### P REG #### [facility] [address] [place] [address] Dr. Hemanth Kerr Bacteria identified Cx Nom (U) INDICATED Normal [facility] Comment on above: Performed By: #### P REG #### [facility] [address] [place] [address] Dr. Hemanth Kerr CAST SEEN Abnormal NONE SEEN [facility] Comment on above: Performed By: #### P REG #### [facility] [address] [place] [address] Dr. Hemanth Kerr COARSE GRANULAR CAST RARE Normal [facility] Comment on above: Performed By: #### P REG #### [facility] [address] [place] [address] Dr. Hemanth Kerr Crystals LM Nom (Urine sed) NONE SEEN Normal NONE SEEN [facility] Comment on above: Performed By: #### P REG #### [facility] [address] [place] [address] Dr. Hemanth Kerr Epithelial cells LM Ql (Urine sed) RARE Normal NONE SEEN /RARE [facility] Comment on above: Performed By: #### P REG #### [facility] [address] [place] [address] Dr. Hemanth Kerr MUCOUS NONE SEEN Normal NONE SEEN [facility] Comment on above: Performed By: #### P REG #### [facility] [address] [place] [address] Dr. Hemanth Kerr RBC 0-2 Normal 0-2 [facility] Comment on above: Performed By: #### P REG #### [facility] [address] [place] [address] Dr. Hemanth Kerr WBC 2-5 Abnormal NONE SEEN [facility] Comment on above: Performed By: #### P REG #### [facility] [address] [place] [address] Dr. Hemanth Kerr XR CHEST 1 Von [...] KAMILLA MILLS Date: 2022-11-28 17:39 Normal [facility] CULTURE URINEon 10-13-2022 CULTURE URINE Isolate [...] Trimethoprim/Sulfamethoxa zole >=320 R F Normal [facility] Comment on above: Performed By: #### U RCX #### [facility] [address] [place] [address] Dr. Hemanth Kerr CBC AUTO DIFFon 10-11-2022 BASO # 0.0 103/ul Normal 0.0-0.1 [facility] Comment on above: Performed By: #### C BC #### [facility] [address] [place] [address] Dr. Hemanth Kerr Basophils/100 WBC (Bld) 0.3 % Normal 0.2-2.0 [facility] Comment on above: Performed By: #### C BC #### [facility] [address] [place] [address] Dr. Hemanth Kerr EO # 0.0 103/ul Normal 0.0-0.7 [facility] Comment on above: Performed By: #### C BC #### [facility] [address] [place] [address] Dr. Hemanth Kerr Eosinophils/100 WBC (Bld) 0.4 % Critically low 0.9-7.0 [facility] Comment on above: Performed By: #### C BC #### [facility] [address] [place] [address] Dr. Hemanth Kerr Erythrocyte distribution width (RBC) [Ratio] 12.2 % Normal 11.0-15.0 [facility] Comment on above: Performed By: #### C BC #### [facility] [address] [place] [address] Dr. Hemanth Kerr Hematocrit (Bld) [Volume fraction] 38.6 % Normal 36.0-48.0 [facility] Comment on above: Performed By: #### C BC #### [facility] [address] [place] [address] Dr. Hemanth Kerr Hemoglobin (Bld) [Mass/Vol] 12.0 g/dL Normal 12.0-16.0 [facility] Comment on above: Performed By: #### C BC #### [facility] [address] [place] [address] Dr. Hemanth Kerr IG # 0.07 10e3/ul Critically high 0.00-0.03 [facility] Comment on above: Performed By: #### C BC #### [facility] [address] [place] [address] Dr. Hemanth Kerr IG % 0.7 % Critically high 0.0-0.5 [facility] Comment on above: Performed By: #### C BC #### [facility] [address] [place] [address] Dr. Hemanth Kerr LYMPH # 1.2 103/ul Normal 1.2-3.8 [facility] Comment on above: Performed By: #### C BC #### [facility] [address] [place] [address] Dr. Hemanth Kerr Lymphocytes/100 WBC (Bld) 12.1 % Critically low 20.5-60.0 [facility] Comment on above: Performed By: #### C BC #### [facility] [address] [place] [address] Dr. Hemanth Kerr MANUAL DIFF REQ NO Normal [facility] Comment on above: Performed By: #### C BC #### [facility] [address] [address] [address] Hemanth Kerr MCH (RBC) [Entitic mass] 28.0 pg Normal 26.7-34.0 [facility] Comment on above: Performed By: #### C BC #### [facility] [address] [place] [address] Dr. Hemanth Kerr MCHC (RBC) [Mass/Vol] 31.1 g/dL Normal 29.9-35.2 [facility] Comment on above: Performed By: #### C BC #### [facility] [address] [place] [address] Dr. Hemanth Kerr MCV (RBC) [Entitic vol] 90.2 fL Normal 81.0-99.0 [facility] Comment on above: Performed By: #### C BC #### [facility] [address] [place] [address] Dr. Hemanth Kerr MONO # 0.7 103/ul Normal 0.3-0.8 [facility] Comment on above: Performed By: #### C BC #### [facility] [address] [place] [address] Dr. Hemanth Kerr Monocytes/100 WBC (Bld) 6.9 % Normal 1.7-12.0 [facility] Comment on above: Performed By: #### C BC #### [facility] [address] [place] [address] Dr. Hemanth Kerr NEUT # 8.1 103/ul Critically high 1.4-6.5 [facility] Comment on above: Performed By: #### C BC #### [facility] [address] [place] [address] Dr. Hemanth Kerr Neutrophils/100 WBC (Bld) 79.6 % Critically high 43.0-75.0 [facility] Comment on above: Performed By: #### C BC #### [facility] [address] [place] [address] Dr. Hemanth Kerr Platelet mean volume (Bld) [Entitic vol] 10.8 fL Normal 9.5-13.5 [facility] Comment on above: Performed By: #### C BC #### [facility] [address] [address] [address] Hemanth Kerr PLT 452 103/ul Critically high 150-450 [facility] Comment on above: Performed By: #### C BC #### [facility] [address] [address] [address] Hemanth Kerr RBC 4.28 106/ul Normal 4.20-5.40 [facility] Comment on above: Performed By: #### C BC #### [facility] [address] [address] [address] Hemanth Kerr WBC 10.1 103/ul Normal 4.0-11.0 [facility] Comment on above: Performed By: #### C BC #### [facility] [address] ABD/PELVIS WO CONon [...] or obstructive uropathy. Electronically authenticated by: CHRISTINE OPALJIMENA Date: 2022-10-11 14:45 Normal [facility] ER URINE PROFILEon 3 Bilirubin Ql (U) Negative Normal NEGATIVE [facility] Comment on above: Performed By: #### L ACT #### [facility] [address] [place] [address] Dr. Hemanth Kerr Clarity (U) CLEAR Normal CLEAR [facility] Comment on above: Performed By: #### L ACT #### [facility] [address] [place] [address] Dr. Hemanth Kerr Color (U) LT. YELLOW Normal YELLOW [facility] Comment on above: Performed By: #### L ACT #### [facility] [address] [place] [address] Dr. Hemanth Kerr ERUAHD A micrscopic examina tion will be performed if indicated. Normal [facility] Comment on above: Performed By: #### L ACT #### [facility] [address] [place] [address] Dr. Hemanth Kerr Glucose Ql (U) Negative Normal NEGATIVE [facility] Comment on above: Performed By: #### L ACT #### [facility] [address] [place] [address] Dr. Hemanth Kerr Hemoglobin Ql (U) LARGE Abnormal NEGATIVE [facility] Comment on above: Performed By: #### L ACT #### [facility] [address] [place] [address] Dr. Hemanth Kerr Ketones Ql (U) Negative Normal NEGATIVE [facility] Comment on above: Performed By: #### L ACT #### [facility] [address] [place] [address] Dr. Hemanth Kerr LEUKOCYTES SMALL Abnormal NEGATIVE [facility] Comment on above: Performed By: #### L ACT #### [facility] [address] [place] [address] Dr. Hemanth Kerr Nitrite Ql (U) Negative Normal NEGATIVE [facility] Comment on above: Performed By: #### L ACT #### [facility] [address] [place] [address] Dr. Hemanth Kerr pH (U) 6.5 [pH] Normal 5-9 [facility] Comment on above: Performed By: #### L ACT #### [facility] [address] [place] [address] Dr. Hemanth Kerr Protein (U) [Mass/Vol] 30 mg/dL Abnormal NEGAT IVAN/ TRACE [facility] Comment on above: Performed By: #### L ACT #### [facility] [address] [place] [address] Dr. Hemanth Kerr SPEC GRAVITY <=1.005 Abnormal 1.005-<=1.02 5 [facility] Comment on above: Performed By: #### L ACT #### [facility] [address] [place] [address] Dr. Hemanth Kerr UR MICRO IND INDICATED Normal [facility] Comment on above: Performed By: #### L ACT #### [facility] [address] [place] [address] Dr. Hemanth Kerr Urobilinogen Qn (U) 1.0 {Jose'U}/dL Normal 0.2 - 1. 0 [facility] Comment on above: Performed By: #### L ACT #### [facility] [address] [place] [address] Dr. Hemanth Kerr PREG HCG QUALon 10-11-2022 , QUAL Negative Normal NEGATIVE [facility] Comment on above: Performed By: #### P REG #### [facility] [address] [place] [address] Dr. Hemanth Kerr PROF CHEM 8 (BAS METB)on Anion gap [Moles/Vol] 9.4 mmol/L Normal [facility] Comment on above: Performed By: #### L ACT #### [facility] [address] [place] [address] Dr. Hemanth Kerr Calcium [Mass/Vol] 8.8 mg/dL Normal 8.5-10.1 [facility] Comment on above: Performed By: #### L ACT #### [facility] [address] [address] [address] Hemanth Kerr Chloride [Moles/Vol] 97 mmol/L Critically low 98-107 [facility] Comment on above: Performed By: #### L ACT #### [facility] [address] [address] [address] Hemanth Kerr CO2 [Moles/Vol] 32.4 mmol/L Critically high 21.0-32.0 [facility] Comment on above: Performed By: #### L ACT #### [facility] [address] [address] [address] Hemanth Kerr Creatinine [Mass/Vol] 0.65 mg/dL Normal 0.55-1.02 [facility] Comment on above: Performed By: #### L ACT #### [facility] [address] [place] [address] Dr. Hemanth Kerr EGFR-AF SLOVENIAN >60 Normal >=60 [facility] Comment on above: Performed By: #### L ACT #### [facility] [address] [place] [address] Dr. Hemanth Kerr EGFR-NON AF SLOVENIAN >60 Normal >=60 [facility] Comment on above: Performed By: #### L ACT #### [facility] [address] [place] [address] Dr. Hemanth Kerr Glucose [Mass/Vol] 117 mg/dL Critically high 74-106 [facility] Comment on above: Performed By: #### L ACT #### [facility] [address] [address] [address] Hemanth Kerr Potassium [Moles/Vol] 2.8 mmol/L Critically low 3.5-5.1 [facility] Comment on above: Performed By: #### L ACT #### [facility] [address] [address] [address] Hemanth Kerr Sodium [Moles/Vol] 135 mmol/L Critically low 136-[address] [facility] Comment on above: Performed By: #### L ACT #### [facility] [address] [address] [address] Hemanth Kerr Urea nitrogen [Mass/Vol] 8.0 mg/dL Normal 7.0-18.0 [facility] Comment on above: Performed By: #### L ACT #### [facility] [address] [place] [address] Dr. Hemanth Kerr Urea nitrogen/Creatinine [Mass ratio] 12.3 mg/mg Normal [facility] Comment on above: Performed By: #### L ACT #### [facility] [address] [address] [address] Hemanth Kerr URINE MICROSCOPIC ONLYon BACTERIA SMALL Abnormal NONE SEEN [facility] Comment on above: Performed By: #### L ACT #### [facility] [address] [place] [address] Dr. Hemanth Kerr Bacteria identified Cx Nom (U) INDICATED Normal [facility] Comment on above: Performed By: #### L ACT #### [facility] [address] [place] [address] Dr. Hemanth Kerr CAST NONE SEEN Normal NONE SEEN [facility] Comment on above: Performed By: #### L ACT #### [facility] [address] [place] [address] Dr. Hemanth Kerr Crystals LM Nom (Urine sed) NONE SEEN Normal NONE SEEN [facility] Comment on above: Performed By: #### L ACT #### [facility] [address] [place] [address] Dr. Hemanth Kerr Epithelial cells LM Ql (Urine sed) FEW Abnormal NONE SEEN /RARE [facility] Comment on above: Performed By: #### L ACT #### [facility] [address] [place] [address] Dr. Hemanth Kerr MUCOUS NONE SEEN Normal NONE SEEN [facility] Comment on above: Performed By: #### L ACT #### [facility] [address] [place] [address] Dr. Hemanth Kerr RBC 0-2 Normal 0-2 [facility] Comment on above: Performed By: #### L ACT #### [facility] [address] [place] [address] Dr. Hemanth Kerr WBC 10-20 Abnormal NONE SEEN [facility] Comment on above: Performed By: #### L ACT #### [facility] [address] [place] [address] Dr. Hemanth Kerr PREG QUANT HCGon 09-12-2022 HCG QUANT 66 mIU/mL Normal [facility] Comment on above: Performed By: #### C MP #### [facility] [address] [place] [address] Dr. Hemanth Kerr HCG RANGE SEE BELOW Normal [facility] Comment on above: Result Comment: 5-50 0.2-1 WEEK 50-500 1-2 WEEKS 100-5,000 2-3 WEEKS 500-10,000 3-4 WEEKS 1,000-50,000 4-5 WEEKS 10,000-100,000 5-6 WEEKS 15,000-200,000 6-8 WEEKS 10,000-100,000 2-3 MONTHS Performed By: #### C MP #### [facility] [address] [place] [address] Dr. Hemanth Kerr CBC AUTO DIFFon 08-16-2022 BASO # 0.0 103/ul Normal 0.0-0.1 [facility] Comment on above: Performed By: #### L ACT #### [facility] [address] [place] [address] Dr. Hemanth Kerr Basophils/100 WBC (Bld) 0.6 % Normal 0.2-2.0 [facility] Comment on above: Performed By: #### L ACT #### [facility] [address] [place] [address] Dr. Hemanth Kerr EO # 0.1 103/ul Normal 0.0-0.7 [facility] Comment on above: Performed By: #### L ACT #### [facility] [address] [place] [address] Dr. Hemanth Kerr Eosinophils/100 WBC (Bld) 1.3 % Normal 0.9-7.0 [facility] Comment on above: Performed By: #### L ACT #### [facility] [address] [place] [address] Dr. Hemanth Kerr Erythrocyte distribution width (RBC) [Ratio] 12.0 % Normal 11.0-15.0 [facility] Comment on above: Performed By: #### L ACT #### [facility] [address] [place] [address] Dr. Hemanth Kerr Hematocrit (Bld) [Volume fraction] 35.6 % Critically low 36.0-48.0 [facility] Comment on above: Performed By: #### L ACT #### [facility] [address] [place] [address] Dr. Hemanth Kerr Hemoglobin (Bld) [Mass/Vol] 12.4 g/dL Normal 12.0-16.0 [facility] Comment on above: Performed By: #### L ACT #### [facility] [address] [place] [address] Dr. Hemanth Kerr IG # 0.02 10e3/ul Normal 0.00-0.03 [facility] Comment on above: Performed By: #### L ACT #### [facility] [address] [place] [address] Dr. Hemanth Kerr IG % 0.3 % Normal 0.0-0.5 [facility] Comment on above: Performed By: #### L ACT #### [facility] [address] [place] [address] Dr. Hemanth Kerr LYMPH # 1.9 103/ul Normal 1.2-3.8 [facility] Comment on above: Performed By: #### L ACT #### [facility] [address] [place] [address] Dr. Hemanth Kerr Lymphocytes/100 WBC (Bld) 27.5 % Normal 20.5-60.0 [facility] Comment on above: Performed By: #### L ACT #### [facility] [address] [place] [address] Dr. Hemanth Kerr MANUAL DIFF REQ NO Normal [facility] Comment on above: Performed By: #### L ACT #### [facility] [address] [place] [address] Dr. Hemanth Kerr MCH (RBC) [Entitic mass] 29.6 pg Normal 26.7-34.0 [facility] Comment on above: Performed By: #### L ACT #### [facility] [address] [place] [address] Dr. Hemanth Kerr MCHC (RBC) [Mass/Vol] 34.8 g/dL Normal 29.9-35.2 [facility] Comment on above: Performed By: #### L ACT #### [facility] [address] [address] [address] Hemanth Kerr MCV (RBC) [Entitic vol] 85.0 fL Normal 81.0-99.0 [facility] Comment on above: Performed By: #### L ACT #### [facility] [address] [place] [address] Dr. Hemanth Kerr MONO # 0.4 103/ul Normal 0.3-0.8 [facility] Comment on above: Performed By: #### L ACT #### [facility] [address] [place] [address] Dr. Hemanth Kerr Monocytes/100 WBC (Bld) 6.3 % Normal 1.7-12.0 [facility] Comment on above: Performed By: #### L ACT #### [facility] [address] [place] [address] Dr. Hemanth Kerr NEUT # 4.5 103/ul Normal 1.4-6.5 [facility] Comment on above: Performed By: #### L ACT #### [facility] [address] [place] [address] Dr. Hemanth Kerr Neutrophils/100 WBC (Bld) 64.0 % Normal 43.0-75.0 [facility] Comment on above: Performed By: #### L ACT #### [facility] [address] [place] [address] Dr. Hemanth Kerr Platelet mean volume (Bld) [Entitic vol] 10.6 fL Normal 9.5-13.5 [facility] Comment on above: Performed By: #### L ACT #### [facility] [address] [place] [address] Dr. Hemanth Kerr PLT 247 103/ul Normal 150-450 [facility] Comment on above: Performed By: #### L ACT #### [facility] [address] [place] [address] Dr. Hemanth Kerr RBC 4.19 106/ul Critically low 4.20-5.40 [facility] Comment on above: Performed By: #### L ACT #### [facility] [address] [place] [address] Dr. Hemanth Kerr WBC 7.0 103/ul Normal 4.0-11.0 [facility] Comment on above: Performed By: #### L ACT #### [facility] [address] [place] [address] Dr. Hemanth Kerr Covid-19 PCR ([facility])on 07-20 SARS-CoV-2 (COVID-19) RNA ELMO+probe Ql (Unsp spec) Not detected Normal NOT DETECTED [facility] Comment on above: Result Comment: This test is not yet approved or cleared by the [place] FDA. When there are no FDA-approved or cleared tests available, and other criteria are met, FDA can make tests available under an emergency access mechanism called an Emergency Use Authorization (EUA). The EUA for this test is supported by the [employer] Supervisor of Health and Human Service's (HHS's) declaration [...] SARS-CoV-2. Performed By: #### C MP #### [facility] [address] [place] [address] Dr. Hemanth Kerr PREG QUANT HCGon 08-16-2022 HCG QUANT 11145 mIU/mL Normal [facility] Comment on above: Performed By: #### P REG #### [facility] [address] [place] [address] Dr. Hemanth Kerr HCG RANGE SEE BELOW Normal [facility] Comment on above: Result Comment: 5-50 0.2-1 WEEK 50-500 1-2 WEEKS 100-5,000 2-3 WEEKS 500-10,000 3-4 WEEKS 1,000-50,000 4-5 WEEKS 10,000-100,000 5-6 WEEKS 15,000-200,000 6-8 WEEKS 10,000-100,000 2-3 MONTHS Performed By: #### P REG #### [facility] [address] [place] [address] Dr. Hemanth Kerr PREG QUANT HCGon 08-14-2022 HCG QUANT 51914 mIU/mL Normal [facility] Comment on above: Performed By: #### P REG #### [facility] [address] [place] [address] Dr. Hemanth Kerr HCG RANGE SEE BELOW Normal [facility] Comment on above: Result Comment: 5-50 0.2-1 WEEK 50-500 1-2 WEEKS 100-5,000 2-3 WEEKS 500-10,000 3-4 WEEKS 1,000-50,000 4-5 WEEKS 10,000-100,000 5-6 WEEKS 15,000-200,000 6-8 WEEKS 10,000-100,000 2-3 MONTHS Performed By: #### P REG #### [facility] [address] [place] [address] Dr. Hemanth Kerr US PREG TVon 08-14-2022 [...] by: CHRISTINE SÁNCHEZ Date: 2022-08-14 16:22 Normal [facility] US PREG TVon 07-27-2022 US PREG [...] by: CHRISTINE SÁNCHEZ Date: 2022-07-27 17:04 Normal [facility] XR CHEST 1 Von 07-09-2022 XR [...] by: FELIX WEBB Date: 2022-07-09 12:06 Normal [facility] Jerald 12-12-2021 FRANK Telephone (CHANDANA) ----- NOE DURAN ([id number]) 1995 F Date Time Provider Department 12/12/21 KING SUAZO During your visit today, we recorded the following information about you: Angelia Almazan 12/12/2021 11:16 AM Signed Pleases sign pending new cbc order. Thanks, Angelia Almazan MA Allergies As of Date: 12/12/2021 (No Known Allergies) Date Reviewed: 12/12/2021 Reviewed by: Jasmin Zuñiga APRN.TECHNICAL SUPPORT ASSISTANT - Fully Assessed Reason for Visit: Lab Orders [6388] Primary Visit Diagnosis:Iron deficiency anemia, unspecified iron deficiency anemia type [D50.9] Order(s):CBC + DIFF [SQCBCDIF] Order #: [id number] FUTURE Prescriptions as of 12/12/2021 - gabapentin (NEURONTIN) 400 mg capsule Take by mouth. - Polysaccharide Iron Complex 180 mg iron cap Take by mouth. - aspirin 81 mg cap Take 81 mg by mouth once daily. - ONDANSETRON HCL ORAL Take 4 mg by mouth as needed. Problem List As Of Date: 12/12/2021 (None) Encounter Status:Closed by JASMIN ZU[facility]IGA [facility] NOE [facility]AN ([id number]) 1995 F Date Time Provider Department 11/10/21 [...] B12 is slightly low. Options would be [id number] B12 tablets 2 mg daily or start a monthly injection. Thanks, MELANY De La O RN 11/10/2021 3:40 PM Signed Informed pt of Dr Suazo's message. Pt verbalized understanding and states [facility] told her only 2 doses of the IV iron are given so she does not need 3rd dose. LAMBERTO Kothari MD 11/10/2021 4:32 PM Signed Turns out she received Injectafer 750x2. Typically we do not give a third dose so okay not to receive. She should start oral or injectable B12 however. Thanks, BRQuirino De La O RN 11/10/2021 4:35 PM [...] by JENNYFER DE LA O on 11/10/21 [facility] CNOVSPon 11-08-2021 CNOVSP Visit (SP) Office (HEMASA) ----- ARCADIONOE ([id number]) 1995 F Date Time Provider Department 11/08/21 [...] shortness of breath, and is seen at [place] emergency room. Labs revealed a hemoglobin of [...] changes, r (more content not included)... Normal [facility] Comp Metabolic Panelon 11-08 Albumin [Mass/Vol] 3.6 g/dL Low 3.9-4.[address] [facility] Comment on above: Performed By: #### S ERFOL, IRON, B12, FERR #### [id number] ALP [Catalytic activity/Vol] 79 U/L Normal 34-123 [facility] Comment on above: Performed By: #### S ERFOL, IRON, B12, FERR #### [place] [id number] ALT [Catalytic activity/Vol] 8 U/L Normal 7-38 [facility] Comment on above: Performed By: #### S ERFOL, IRON, B12, FERR #### [address] [address] Anion gap [Moles/Vol] 9 mmol/L Normal 9-18 [facility] Comment on above: Performed By: #### S ERFOL, IRON, B12, FERR #### [address] [place] [address] AST [Catalytic activity/Vol] 13 U/L Normal 13-35 [facility] Comment on above: Performed By: #### S ERFOL, IRON, B12, FERR #### [address] [place] [address] Bilirubin [Mass/Vol] 0.2 mg/dL Normal 0.2-1.3 [facility] Comment on above: Performed By: #### S ERFOL, IRON, B12, FERR #### [place] [id number] Calcium [Mass/Vol] 9.3 mg/dL Normal 8.5-10.[address] [facility] Comment on above: Performed By: #### S ERFOL, IRON, B12, FERR #### [address] [place] [address] Chloride [Moles/Vol] 102 mmol/L Normal 97-105 [facility] Comment on above: Performed By: #### S ERFOL, IRON, B12, FERR #### [facility] [address] [address] CO2 [Moles/Vol] 23 mmol/L Normal 22-30 [facility] Comment on above: Performed By: #### S ERFOL, IRON, B12, FERR #### [facility] [address] [place] [address] Creatinine [Mass/Vol] 0.55 mg/dL Low 0.58-0.96 [facility] Comment on above: Performed By: #### S ERFOL, IRON, B12, FERR #### [facility] [address] [place] [address] eGFR- Amer. >[address] [facility] Comment on above: Performed By: #### S ERFOL, IRON, B12, FERR #### [facility] [address] [place] [phone] eGFR-All Other Races >60 Normal [facility] [...] #### S ERFOL, IRON, B12, FERR #### [facility] [address] [place] [address] Glucose [Mass/Vol] 96 mg/dL Normal 74-[address] [facility] Comment on above: Result Comment: The [employer] Diabetes Association (ADA) provides guidance for cutoff [...] Standards of Medical Care in Diabetes 2016, [employer] Diabetes Association. Diabetes Care. 2016.39(Suppl 1). Performed By: #### S ERFOL, IRON, B12, FERR #### [place] [address] [place] [address] Potassium [Moles/Vol] 3.3 mmol/L Low 3.7-5.1 [facility] Comment on above: Performed By: #### S ERFOL, IRON, B12, FERR #### [place] [address] [place] [phone] Protein [Mass/Vol] 6.3 g/dL Normal 6.3-8.[address] [facility] Comment on above: Performed By: #### S ERFOL, IRON, B12, FERR #### [facility] [address] [place] [address] Sodium [Moles/Vol] 134 mmol/L Low 136-[address] [facility] Comment on above: Performed By: #### S ERFOL, IRON, B12, FERR #### [facility] [address] [place] [address] Urea nitrogen [Mass/Vol] 4 mg/dL Low 7-21 [facility] Comment on above: Performed By: #### S ERFOL, IRON, B12, FERR #### [facility] [address] [place] [address] Ferritinon 11-08-2021 Ferritin [Mass/Vol] 203.0 ng/mL Normal 14.7-205.1 [facility] Comment on above: Performed By: #### S ERFOL, IRON, B12, FERR #### [place] [address] [place] [address] Folate, Serumon 11-08-2021 Folate [Mass/Vol] 8.5 ng/mL Normal >4.7 [facility] Comment on above: Performed By: #### S ERFOL, IRON, B12, FERR #### [place] [address] Iron and TIBCon 11-08-2021 Iron [Mass/Vol] 93 ug/dL Normal 41-186 [facility] Comment on above: Performed By: #### S ERFOL, IRON, B12, FERR #### [place] [address] TIBC 407 ug/dL High 232-386 [facility] Comment on above: Performed By: #### S ERFOL, IRON, B12, FERR #### [place] [id number] Transferrin Saturatn 23 % Normal 15-57 [facility] Comment on above: Performed By: #### S ERFOL, IRON, B12, FERR #### [place] [address] Remote CBCDIF (for COUNTS INCLUDE [facility] AT [facility] use o nly)on 11-08-2021 Abs Baso <0.03 Normal <0.11 [facility] Abs [place] 0.57 k/uL Normal <0.87 [facility] Abs Neut 4.67 k/uL Normal 1.45-7.50 [facility] Absolute nRBC <0.01 Normal <0.01 [facility] Basophils/100 WBC (Bld) 0.3 % Normal [facility] DTYPE Auto Diff Normal [facility] Eosinophils (Bld) [#/Vol] 0.05 10*3/uL Normal <0.46 [facility] Eosinophils/100 WBC (Bld) 0.8 % Normal [facility] Erythrocyte distribution width (RBC) [Ratio] 29.9 % High 11.5-15.0 [facility] Hematocrit (Bld) [Volume fraction] 32.6 % Low 36.0-46.0 [facility] Hemoglobin (Bld) [Mass/Vol] 10.1 g/dL Low 11.5-15.5 [facility] Lymphocytes (Bld) [#/Vol] 1.25 10*3/uL Normal 1.00-4.00 [facility] Lymphocytes/100 WBC (Bld) 19.1 % Normal [facility] MCH 25.1 pG Low 26.0-34.0 [facility] MCHC (RBC) [Mass/Vol] 31.0 g/dL Normal 30.5-36.0 [facility] MCV (RBC) [Entitic vol] 81.1 fL Normal 80.0-100.0 [facility] Monocytes/100 WBC (Bld) 8.7 % Normal [facility] Neutrophils/100 WBC (Bld) 71.1 % Normal [facility] NRBCs 0.0 /100 WBC Normal 0 [facility] Platelet mean volume (Bld) [Entitic vol] 10.3 fL Normal 9.0-12.7 [facility] Platelets (Bld) [#/Vol] 223 10*3/uL Normal 150-400 [facility] Comment on above: Result Comment: Resu lt checked and verified Sample checked for a clot. RBC (Bld) [#/Vol] 4.02 10*6/uL Normal 3.90-5.20 [facility] WBC (Bld) [#/Vol] 6.56 10*3/uL Normal 3.70-11.00 [facility] Reticulocyteon 11-08-2021 Abs Retic 0.140 M/uL High 0.0180-0.100 0 [facility] Comment on above: Performed By: #### S ERFOL, IRON, B12, FERR #### [facility] [address] [place], [place] [address] Retic% 3.5 % High 0.4-2.0 [facility] Comment on above: Performed By: #### S ERFOL, IRON, B12, FERR #### [facility] [address] [place], [place] [id number] Vitamin B12on 11-08-2021 Cobalamin (Vitamin B12) [Mass/Vol] 218 pg/mL Low 232-1245 [facility] Comment on above: Performed By: #### S ERFOL, IRON, B12, FERR #### [facility] [address] [place], [place] [id number] CBCon 04-26-2020 Erythrocyte distribution width (RBC) [Ratio] 14.7 % High 11.8 - 14.4 % [place], [place] Hematocrit (Bld) [Volume fraction] 36.0 % Low 36.3 - 47.1 % [place] Hemoglobin (Bld) [Mass/Vol] 10.9 g/dL Low 11.9 - 15.1 g/dL [place] Interpretation and review of laboratory results Abnormal [place] MCH (RBC) [Entitic mass] 26.2 pg 25.2 - 33.5 pg [place] MCHC (RBC) [Mass/Vol] 30.3 g/dL 28.4 - 34.8 g/dL [place] MCV (RBC) [Entitic vol] 86.5 fL 82.6 - 102.9 fL [place] Platelet mean volume (Bld) [Entitic vol] 10.8 fL 8.1 - 13.5 fL [place] Platelets (Bld) [#/Vol] 328 10*3/uL [place] RBC (Bld) [#/Vol] 4.16 10*6/uL 3.95 - 5.1 1 m/uL [place] WBC (Bld) [#/Vol] 0.0 10*3/uL 0.0 per 10 0 WBC [place] WBC (Bld) [#/Vol] 5.7 10*3/uL [place] Comprehensive Metabolic Pane perez 04-26-2020 Albumin [Mass/Vol] 3.4 g/dL Low 3.5 - 5.2 g/dL [place] Albumin/Globulin [Mass ratio] 1.5 {ratio} [place] ALP [Catalytic activity/Vol] 40 U/L 35 - 104 U/L [place] ALT [Catalytic activity/Vol] 12 U/L 5 - 33 U/L [place] Anion gap [Moles/Vol] 9 mmol/L 9 - 17 mmol/L [place] AST [Catalytic activity/Vol] 12 U/L <32 [place] Bilirubin Ql (U) <0.10 Low 0.3 - 1.2 mg/dL [place] Bun/Cre Ratio 26 High [place] Calcium [Mass/Vol] 9.3 mg/dL 8.6 - 10. 4 mg/dL [place] Chloride [Moles/Vol] 109 mmol/L High 98 - 10 7 mmol/L [place] CO2 [Moles/Vol] 26 mmol/L 20 - 31 mmol/L [place] Creatinine [Mass/Vol] 0.57 mg/dL 0.5 - 0.9 mg/dL [place] GFR >60 >60 mL/min [place] GFR Non- >60 >60 mL/min [place] Glucose [Mass/Vol] 92 mg/dL 70 - 99 mg/dL [place] Interpretation and review of laboratory results Abnormal [place] Potassium [Moles/Vol] 3.8 mmol/L 3.7 - 5.3 mmol/L [place] Protein [Mass/Vol] 5.7 g/dL Low 6.4 - 8.3 g/dL [place] Sodium [Moles/Vol] 144 mmol/L 135 - 144 mmol/L [place] Urea nitrogen [Mass/Vol] 15 mg/dL 6 - 20 mg/dL [place] HCG Qualitative, Serumon hCG Qual Negative NEGATIVE [place] Comment on above: Specimens with hCG l evels near the threshold of the test (25 mIU/mL) may give a negative or indeterminate result. In such cases, another test should be performed with a new specimen in 48-72 hours. If early is suspected clinically in this setting, correlation with quantitative serum b-hCG level is suggested. [facility] has confirmed the use of plasma for this test. This has not been cleared or approved by the U.S. Food and Drug Administration. The FDA has determined that such clearance is not necessary. HIV Screenon 04-26-2020 HIV Ag/Ab NONREACTIVE NONREACTIVE [place] Comment on above: No laboratory eviden ce of HIV infection. If acute HIV infection is suspected, consider testing for HIV-1 RNA. Hepatitis Panel, Acuteon HAV IgM IA Qn (S) NONREACTIVE NONREACTIVE [place] Hep B Core Ab, IgM NONREACTIVE NONREACTIVE [place] Hepatitis B Surface Ag NONREACTIVE NONREACTIVE [place] Hepatitis C Ab REACTIVE Abnormal NONREACTIVE [place] Comment on above: The hepatitis C [...] Interpretation and review of laboratory results Abnormal [place] Metabolic Panelon 04-26-2020 GFR/1.73 sq M predicted among non-blacks MDRD (S/P/Bld) [Vol rate/Area] [place] Comment on above: Stage 1: Some [...] body mass. Additional eGFR calculator available at: http://www.[employer].Jibe/multiple_crcl_2012.htm Microscopic Urinalysison Amorphous, UA NOT REPORTED None [facility] [place] Bacteria, UA NOT REPORTED None [facility] [place] Casts UA NOT REPORTED /LPF [facility] [place] Crystals, UA 5 TO 10 Abnormal None /HPF [facility] [place] Crystals, UA CALCIUM OXALATE Abnormal None /HPF [facility] [place] Epithelial Cells UA 0 TO 2 [facility] [place] Interpretation and review of laboratory results Abnormal [facility] [place] Mucus, UA TRACE Abnormal None [facility] [place] Other Observations UA NOT REPORTED NOT REQ. M [facility] RBC (U) [#/Vol] None [facility] [place] Renal Epithelial, UA NOT REPORTED 0 /HPF [facility] Trichomonas, UA NOT REPORTED None [facility] [place] WBC, UA 0 TO 2 [facility] [place] Yeast, UA NOT REPORTED None [facility] - [facility] Urinalysis Reflex to Culture on 04-26-2020 Bilirubin Urine Negative NEGATIVE [facility] [place] Color, UA YELLOW YELLOW [facility], [place] Glucose, Ur Negative NEGATIVE [facility] [place] Interpretation and review of laboratory results Abnormal [facility] [place] Ketones Ql (U) Negative NEGATIVE [facility] [place] Leukocyte esterase Test strip Ql (U) Negative NEGATIVE [facility] [place] Nitrite, Urine Negative NEGATIVE [facility] [place] pH, UA 6.5 [facility], [place] Protein (U) [Mass/Vol] Negative NEGATIVE [facility] [place] Specific [place], UA 1.025 High [facility] Turbidity UA CLEAR CLEAR [facility] [place] Urinalysis Comments NOT REPORTED [facility] Urine Hgb Negative NEGATIVE [facility] [place] Urobilinogen, Urine Normal Normal [facility] [place] ED Clinical Summaryon 2019 ED Clinical Summary (Inserted Image. Ritika ble to display) [facility] [address] [place] [address] ED Clinical Summary Person Information Name: Kathryn Duran/Kirsty Age: 25 Years : 1995 Sex: Female PCP: Marital Status: Single Phone: Race: White Ethnicity: Not or Language: Turkish Visit Reason: Drug withdrawal; Drug withdrawal Acuity: 3 Enc Type: Emergency Med Service: Emergency Medicine Arrival: 03/16/2020 20:10:45 Discharge: 03/17/2020 02:12:00 LOS: 000 06:02 Checkin: 03/16/2020 20:10:45 Checkout: 03/17/2020 02:12:00 Dispo Type: Home or Self Care Address: [address] [place] [id number] Provider Notes: Diagnosis: 1:Affective disorder; 2:Drug usage [...] range between ( 27.2 and 40.8 ) [place] Auto: 11.4 % -- Normal range between [...] range between ( 36.0 and 46.0 ) [place] Absolute: 1.5 x10 MCH: 27.4 pg -- [...] 03/16/2020 20:20:41 Follow up: With: Address: When: [facility] [place], [place] Within 1 to 2 days Discharge Orders: Discharge Patient 03/17/20 1:45:00 EDT, Discharge to Home, Self Patient Education Information: Understanding Methamphetamine Abuse and Addiction; Treating Affective (Mood) Disorders [facility] Poison Help line: . [facility] Hotline: [place] Tobacco Quit Line: [place], [place]) [address]: [phone] [place], [place]) [address]: [phone] [facility] [address] [place], [place]: [phone] Normal [facility] hCG Quantitativeon 0 Beta hCG Qnt 1.7 mIU/mL Normal 0.0-4.9 [facility] Comment on above: Result Comment: 0.0 - 4.9 Negative for 5.0 - 25.0 Indeterminant for : Suggest repeat in 72 hours. >25.0 Positive for Performed By: #### H CG ####[place] [id number] [place] [address] .UA Microscp Aon 03-16-2020 UA Hyline Cast Qual >20 Abnormal Negative [facility] Comment on above: Performed By: #### C [id number] ####[id number] [address] UA Mucus Present Abnormal Absent [facility] Comment on above: Performed By: #### C [id number] ####[address] [address] UA RBC Quant 12 /HPF High 0-5 [facility] Comment on above: Performed By: #### C [id number] ####[address] [address] UA Squepi Cells Quant 6 /HPF Normal 0-29 [facility] Comment on above: Performed By: #### C [id number] ####[address] [address] UA WBC Quant 7 /HPF High 0-5 [facility] Comment on above: Performed By: #### C [id number] ####[address] [address] .eGFRon 03-16-2020 eGFR AA 52 mL/min/1.73m? Low >=60 [facility] Comment on above: Result Comment: Resu lt = 0-14.9 mL/min/1.73 m2 Kidney failure or Dialysis Result = 15-29 mL/min/1.73 m2 Severe decrease in GFR Result = 30-59 mL/min/1.73 m2 Moderate decrease in GFR Result >= 60 mL/min/1.73 m2 Normal or increased GFR Performed By: #### E GFR #### [address] [address] eGFR Non-AA 43 mL/min/1.73m? Low >=60 [facility] Comment on above: Result Comment: Resu [...] Performed By: #### E GFR #### [address] [address] CBC w/ Diffon 03-16-2020 Erythrocyte distribution width (RBC) [Ratio] 15.9 % High 11.6-14.8 [facility] Comment on above: Performed By: #### C BC #### [address] [address] Hematocrit (Bld) [Volume fraction] 37.5 % Normal 36.0-46.0 [facility] Comment on above: Performed By: #### C BC #### [address] [address] Hemoglobin (Bld) [Mass/Vol] 12.5 g/dL Normal 12.0-16.0 [facility] Comment on above: Performed By: #### C BC #### [address] [address] MCH (RBC) [Entitic mass] 27.4 pg Normal 27.0-35.0 [facility] Comment on above: Performed By: #### C BC #### [address] [address] MCHC (RBC) [Mass/Vol] 33.2 % Normal 31.0-37.0 [facility] Comment on above: Performed By: #### C BC #### [address] [address] MCV (RBC) [Entitic vol] 82.4 fL Normal 80.0-100.0 [facility] Comment on above: Performed By: #### C BC #### [address] [address] Platelet mean volume (Bld) [Entitic vol] 9.4 fL Normal 6.7-10.6 [facility] Comment on above: Performed By: #### C BC #### [address] [address] Platelets (Bld) [#/Vol] 307 x10*3/mcL Normal 150-350 [facility] Comment on above: Performed By: #### C BC #### [address] [address] RBC (Bld) [#/Vol] 4.55 x10*6/mcL Normal 3.80-5.20 [facility] Comment on above: Performed By: #### C BC #### [address] [address] WBC (Bld) [#/Vol] 12.9 x10*3/mcL High 4.5-11.0 [facility] Comment on above: Performed By: #### C BC #### [address] [address] CMPon 03-16-2020 Albumin [Mass/Vol] 5.2 g/dL High 3.2-4.9 [facility] Comment on above: Result Comment: [facility] Laboratory updated the methodology used for albumin testing on 04/24/18. Albumin measurement was performed using a bromcresol purple dye-binding assay. Performed By: #### C OMP #### [address] [address] Albumin/Globulin [Mass ratio] 1.5 {ratio} Normal 1.1-2.2 [facility] Comment on above: Performed By: #### C OMP #### [address] [address] Alk Phos 47 IU/L Normal 32-91 [facility] Comment on above: Performed By: #### C OMP #### [address] [address] ALT [Catalytic activity/Vol] 19 U/L Normal 14-54 [facility] Comment on above: Performed By: #### C OMP #### [address] [address] Anion gap [Moles/Vol] 22 mmol/L High 7-17 [facility] Comment on above: Performed By: #### C OMP #### [address] [place] [address] AST [Catalytic activity/Vol] 31 U/L Normal 15-41 [facility] Comment on above: Performed By: #### C OMP #### [address] [place] [address] Bili Total 1.4 mg/dL High 0.3-1.2 [facility] Comment on above: Performed By: #### C OMP #### [address] [place] [address] Calcium [Mass/Vol] 10.2 mg/dL Normal 8.5-10.3 [facility] Comment on above: Performed By: #### C OMP #### [address] [address] Chloride [Moles/Vol] 100 mmol/L Normal 98-110 [facility] Comment on above: Performed By: #### C OMP #### [address] [place] [address] CO2 [Moles/Vol] 19 mmol/L Low 22-32 [facility] Comment on above: Performed By: #### C OMP #### [address] [place] [address] Creatinine [Mass/Vol] 1.47 mg/dL High 0.44-1.03 [facility] Comment on above: Performed By: #### C OMP #### [address] [place] [address] Glucose [Mass/Vol] 85 mg/dL Normal 70-99 [facility] Comment on above: Performed By: #### C OMP #### [address] [address] Potassium [Moles/Vol] 3.7 mmol/L Normal 3.4-4.8 [facility] Comment on above: Performed By: #### C OMP #### [address] [address] Protein [Mass/Vol] 8.7 g/dL High 6.5-8.1 [facility] Comment on above: Performed By: #### C OMP #### [address] [address] Sodium [Moles/Vol] 137 mmol/L Normal 133-142 [facility] Comment on above: Performed By: #### C OMP #### [address] [address] Urea nitrogen [Mass/Vol] 25 mg/dL Normal 8-26 [facility] Comment on above: Performed By: #### C OMP #### [address] [address] Urea nitrogen/Creatinine [Mass ratio] 17.0 mg/mg Normal 10.0-20.0 [facility] Comment on above: Performed By: #### C OMP #### [address] [address] CPKon 03-16-2020 Creatine Phosphokinase 439 IU/L High 38-234 [facility] Comment on above: Performed By: #### C P #### [address] [address] Diff Autoon 03-16-2020 Baso Absolute 0.0 x10*3/mcL Normal 0.0-0.2 [facility] Comment on above: Performed By: #### . Automated Diff #### [address] [address] Basophils/100 WBC (Bld) 0.4 % Normal 0.0-1.5 [facility] Comment on above: Performed By: #### . Automated Diff #### [address] [address] Eos Absolute 0.0 x10*3/mcL Normal 0.0-0.4 [facility] Comment on above: Performed By: #### . Automated Diff #### [address] [address] Eosinophils/100 WBC (Bld) 0.1 % Normal 0.0-5.4 [facility] Comment on above: Performed By: #### . Automated Diff #### [address] [address] Lymphocytes (Bld) [#/Vol] 1.4 x10*3/mcL Normal 1.0-4.8 [facility] Comment on above: Performed By: #### . Automated Diff #### [address] [address] Lymphocytes/100 WBC (Bld) 10.8 % Low 27.2-40.8 [facility] Comment on above: Performed By: #### . Automated Diff #### [address] [address] [place] Absolute 1.5 x10*3/mcL High 0.1-1.1 [facility] Comment on above: Performed By: #### . Automated Diff #### [address] [address] Monocytes/100 WBC (Bld) 11.4 % Normal 3.7-11.9 [facility] Comment on above: Performed By: #### . Automated Diff #### [address] [address] Neutro Absolute 10.0 x10*3/mcL High 1.8-7.7 [facility] Comment on above: Performed By: #### . Automated Diff #### [address] [address] Neutro Auto 77.3 % High 47.2-70.8 [facility] Comment on above: Performed By: #### . Automated Diff #### [address] [address] ED Note-Nursingon 03-16-2020 ED Note-Nursing Lab called about add ons Electronically signed by Barbara Holman 03/16/20 20:49 EDT Normal [facility] ED Note-Physicianon 03-16-20 20 ED Note-Physician Chief Complaint I want [...] that [facility] [place] [place] but she has to detox first. [...] as well. She was seen by Alonso, high school social science teacher who has arranged for her to go to [facility] tomorrow as patient is interested in treatment. Verbally contracted to safety and filled out a safety plan. Alonso with social work spoke with director of estate, Jelena who will arrange for further follow-up when they arrive tomorrow. Family is agreeable with plan. Patient has good support. They will return if any changes of symptoms or concern. Silvia Castañeda scribing for and in the presence of Dr. Cornell. Daphnieibe Attestation: The information in this document, created by the medical imaging technologist for me, accurately reflects the services I [...] High Lymph Auto 03/16/20 20:39 10.8 Low [place] Auto 03/16/20 20:39 11.4 Eos Auto 03/16/20 20:39 0.1 Basophil Auto 03/16/20 20:39 0.4 Neutro Absolute 03/16/20 20:39 10.0 High Lymph Absolute 03/16/20 20:39 1.4 [place] Absolute 03/16/20 20:39 1.5 High Eos Absolute [...] DANIELLE, Lima Richards 03/17/2020 04:16 EDT Normal [facility] Ethanolon 03-16-2020 Ethanol [Mass/Vol] mg/dL Normal <=9 [facility] Comment on above: Result Comment: To c onvert mg/dL to g/dL, divide result by 1,000. Legal limit of intoxication is 80 mg/dL (0.08 g/dL). Performed By: #### A LC #### [address] [address] UA w Culture if Indon 2019 Color (U) Terri Normal [facility] Comment on above: Performed By: #### U CI #### [address] [address] Glucose (U) [Mass/Vol] Negative Normal Negative [facility] Comment on above: Performed By: #### U CI #### [address] [address] Ketones Ql (U) 20 mg/dL Abnormal Negative [facility] Comment on above: Performed By: #### U CI #### [facility] [address] [place] [address] UA Blood Small Abnormal Negative [facility] Comment on above: Performed By: #### U CI #### [facility] [address] [place] [address] UA Clarity Cloudy Normal [facility] Comment on above: Performed By: #### U CI #### [facility] [address] [place] [address], [place] [address] UA Leukocyte Esterase Trace Abnormal Negative [facility] Comment on above: Performed By: #### U CI #### [address] [place] [address] UA Nitrite Negative Normal Negative [facility] Comment on above: Performed By: #### U CI #### [address] [place] [address] UA pH 5.0 Normal 4.5 - 7.8 [facility] Comment on above: Performed By: #### U CI #### [address] [place] [address] UA Protein 100 mg/dL Abnormal Negative [facility] Comment on above: Performed By: #### U CI #### [address] [place] [address] UA Source Clean Catch Normal [facility] Comment on above: Performed By: #### U CI #### [address] [place] [address] UA Spec Grav 1.025 Normal 1.003-1.035 [facility] Comment on above: Performed By: #### U CI #### [facility] [address] [place] [address], [place] [address] UA Urobilinogen 0.2 mg/dL Normal 0.2 - 1.0 [facility] Comment on above: Performed By: #### U CI #### [address] [address] Urobilinogen Qn (U) Small Abnormal Negative [facility] Comment on above: Performed By: #### U CI #### [address] [address] UDS Compon 03-16-2020 Creatinine [Mass/Vol] mg/dL Normal [facility] Comment on above: Performed By: #### C [id number] #### [address] [address] Ur Amph Scrn Positive Abnormal NEG = <1000 [facility] Comment on above: Result Comment: This unconfirmed positive screening result is to be used for medical treatment purposes only. Unconfirmed screening results must not be used for non-medical purposes. (e.g. employment testing, legal testing). Performed By: #### C [id number] #### [address] [address] Ur Anastasia Scrn Negative Normal NEG = <200 [facility] [facility] Comment on above: Performed By: #### C [id number] #### [address] [address] Ur Benzodia Scrn Negative Normal NEG = <200 [facility] Comment on above: Performed By: #### C [id number] #### [address] [address] Ur Cannab Scrn Negative Normal NEG = <50 [facility] Comment on above: Performed By: #### C [id number] #### [address] [address] Ur Cocaine Scrn Negative Normal NEG = <300 [facility] Comment on above: Performed By: #### C [id number] #### [address] [address] Ur Methadone Scn Negative Normal NEG = <300 [facility] Comment on above: Performed By: #### C [id number] #### [address] [address] Ur Opiate Scrn Negative Normal NEG = <300 [facility] Comment on above: Performed By: #### C [id number] #### [address] [place] [address] Ur Oxy Screen Negative Normal NEG = <100 [facility] Comment on above: Performed By: #### C [id number] #### [address] [address] Ur Oxy Scrn Qnt 54 ng/mL Normal <=99 [facility] Comment on above: Performed By: #### C [id number] #### [address] [address] Ur PCP Scrn Negative Normal NEG = <25 [facility] Comment on above: Performed By: #### C [id number] #### [address] [address] UA pH 5.0 Normal 4.5 - 7.8 [facility] Comment on above: Performed By: #### C [id number] #### [address] [address] UA Spec Grav 1.024 Normal 1.003-1.035 [facility] Comment on above: Performed By: #### C [id number] #### [address] [address] HIV Screenon 11-21-2019 HIV Ag/Ab NONREACTIVE NONREACTIVE [place] Comment on above: No laboratory eviden ce of HIV infection. If acute HIV infection is suspected, consider testing for HIV-1 RNA. HCG, Quantitative, on 11-20-2019 hCG Quant [id number] High <5 IU/L [place] Comment on above: Non-preg premeno <=5 Postmeno <=8 Male <=3 If HCG results do not concur with clinical observations, additional testing to confirm results is recommended. Elevated results not associated with may be found in patients with other diseases such as tumors of the germ cells (testis, ovaries, etc.), bladder, pancreas, stomach, lungs, and liver. Interpretation and review of laboratory results Abnormal [place] Hepatitis C Antibodyon 11-19 Hepatitis C Ab REACTIVE Abnormal NONREACTIVE [place] Comment on above: The hepatitis C [...] Interpretation and review of laboratory results Abnormal [place] TYPE AND SCREENon 0 11-20-2019 ABO/Rh Positive [facility], [place] Urine Drug Screen, Comprehen siveon 11-20-2019 Amphetamine Screen, Ur Negative NEGATIVE [facility], [place] Barbiturate Screen, Ur Negative NEGATIVE [facility] Benzodiazepine Screen, Urine Negative NEGATIVE [facility] Buprenorphine Urine Negative NEGATIVE [facility], [place] Cannabinoid Scrn, Ur Negative NEGATIVE [facility], [place] Cocaine Metabolite, Urine Negative NEGATIVE [facility], [place] MDMA, Urine NOT REPORTED NEGATIVE [facility], [place] Methadone Screen, Urine Negative NEGATIVE [facility] Methamphetamine, Urine Negative NEGATIVE [facility] Opiates, Urine Negative NEGATIVE [facility] Oxycodone Screen, Ur Negative NEGATIVE [facility] Phencyclidine, Urine Negative NEGATIVE [facility] [place] Propoxyphene, Urine Negative NEGATIVE [facility] Test Information NOT REPORTED [facility], [place] Tricyclic Antidepressants, Urine Negative NEGATIVE [facility], [place] Comment on above: Drug screen results are to be used for medical purposes only. All positive results are unconfirmed. Testing for employment or legal uses should be sent to a reference laboratory for confirmation. HCG, Quantitative, on 06-19-2019 hCG Quant [id number] High <5 IU/L [place] Comment on above: Non-preg premeno <=5 Postmeno <=8 Male <=3 If HCG results do not concur with clinical observations, additional testing to confirm results is recommended. Elevated results not associated with may be found in patients with other diseases such as tumors of the germ cells (testis, ovaries, etc.), bladder, pancreas, stomach, lungs, and liver. Interpretation and review of laboratory results Abnormal [place] HIV Screenon 06-19-2019 HIV Ag/Ab NONREACTIVE NONREACTIVE [place] Comment on above: No laboratory eviden ce of HIV infection. If acute HIV infection is suspected, consider testing for HIV-1 RNA. Hepatitis C Antibodyon 06-19 Hepatitis C Ab REACTIVE Abnormal NONREACTIVE [place] Comment on above: The hepatitis C [...] Interpretation and review of laboratory results Abnormal [place] PROFILE Ion 019 Basophils (Bld) [#/Vol] 10*3/uL [place] Basophils/100 WBC (Bld) 1 % 0 - 2 % [place] Differential Type NOT REPORTED [place] Eosinophils (Bld) [#/Vol] 0.09 10*3/uL [place] Eosinophils/100 WBC (Bld) 2 % 1 - 4 % [place] Erythrocyte distribution width (RBC) [Ratio] 15.7 % High 11.8 - 14.4 % [place] Hematocrit (Bld) [Volume fraction] 36.5 % 36.3 - 47.1 % [place] Hemoglobin (Bld) [Mass/Vol] 11.2 g/dL Low 11.9 - 15.1 g/dL [place] Hepatitis B Surface Ag NONREACTIVE NONREACTIVE [place] Immature granulocytes (Bld) [#/Vol] 0 % 0 [place] Immature granulocytes (Bld) [#/Vol] 10*3/uL [place] Interpretation and review of laboratory results Abnormal [place] Lymphocytes (Bld) [#/Vol] 1.98 10*3/uL [place] Lymphocytes/100 WBC (Bld) 46 % High 24 - 43 % [place] MCH (RBC) [Entitic mass] 25.6 pg 25.2 - 33.5 pg [place] MCHC (RBC) [Mass/Vol] 30.7 g/dL 28.4 - 34.8 g/dL [place] MCV (RBC) [Entitic vol] 83.3 fL 82.6 - 102.9 fL [place] Monocytes (Bld) [#/Vol] 0.37 10*3/uL [place] Monocytes/100 WBC (Bld) 9 % 3 - 12 % [place] Platelet mean volume (Bld) [Entitic vol] 11.6 fL 8.1 - 13.5 fL [place] Platelets (Bld) [#/Vol] NOT REPORTED [place] Platelets (Bld) [#/Vol] 196 10*3/uL [place] RBC (Bld) [#/Vol] 4.38 10*6/uL 3.95 - 5.1 1 m/uL [place] RBC morphology finding Nom (Bld) NOT REPORTED [place] Rubella virus IgG Ql (S) 286.1 IU/mL [place] Comment on above: REFERENCE RANGE: <5.0 NON-REACTIVE (non-immune) 5.0 TO 9.9 EQUIVOCAL >=10.0 REACTIVE (immune) Segmented neutrophils/100 WBC (Bld) 42 % 36 - 65 % [place] Segs Absolute 1.75 [place] T. pallidum, IgG NONREACTIVE NONREACTIVE [place] Comment on above: T. pallidum antibodies are not detected. There is no serological evidence of infection with T. pallidum (early primary syphilis cannot be excluded). Retest in 2-4 weeks if syphilis is clinically suspect. WBC (Bld) [#/Vol] 4.2 10*3/uL [place] WBC (Bld) [#/Vol] 0.0 10*3/uL 0.0 per 10 0 WBC [place] WBC Morphology NOT REPORTED [place] TYPE AND SCREENon 1 ABO/Rh Positive [place] Urine Drug Screen, Comprehen siveon 06-19-2019 Amphetamine Screen, Ur Negative NEGATIVE [facility] [place] Barbiturate Screen, Ur Negative NEGATIVE [facility] [place] Benzodiazepine Screen, Urine Negative NEGATIVE [facility] Buprenorphine Urine Negative NEGATIVE [facility] Cannabinoid Scrn, Ur Negative NEGATIVE [facility] [place] Cocaine Metabolite, Urine Negative NEGATIVE [facility], [place] Interpretation and review of laboratory results Abnormal [facility], [place] MDMA, Urine NOT REPORTED NEGATIVE [facility] Methadone Screen, Urine Negative NEGATIVE [facility] Methamphetamine, Urine Negative NEGATIVE [facility] Opiates, Urine Negative NEGATIVE [facility] Oxycodone Screen, Ur Negative NEGATIVE [facility] [place] Phencyclidine, Urine Negative NEGATIVE [facility] Propoxyphene, Urine Negative NEGATIVE [facility] Test Information NOT REPORTED [place] Tricyclic Antidepressants, Urine Positive Abnormal NEGATIVE [place] Comment on above: Drug screen results are to be used for medical purposes only. All positive results are unconfirmed. Testing for employment or legal uses should be sent to a reference laboratory for confirmation. Comprehensive Metabolic Pane perez 05-09-2019 Albumin [Mass/Vol] 4.3 g/dL 3.5 - 5.2 g/dL [place] Albumin/Globulin [Mass ratio] 1.4 {ratio} [place] ALP [Catalytic activity/Vol] 50 U/L 35 - 104 U/L [place] ALT [Catalytic activity/Vol] 9 U/L 5 - 33 U/L [place] Anion gap [Moles/Vol] 8 mmol/L Low 9 - 17 mmol/L [place] AST [Catalytic activity/Vol] 15 U/L <32 [place] Bilirubin Ql (U) 0.31 mg/dL 0.3 - 1.2 mg/dL [place] Bun/Cre Ratio 20 [place] Calcium [Mass/Vol] 9.4 mg/dL 8.6 - 10. 4 mg/dL [place] Chloride [Moles/Vol] 102 mmol/L 98 - 10 7 mmol/L [place] CO2 [Moles/Vol] 28 mmol/L 20 - 31 mmol/L [place] Creatinine [Mass/Vol] 0.92 mg/dL High 0.5 - 0.9 mg/dL [place] GFR >60 >60 mL/min [place] GFR Non- >60 >60 mL/min [place] Glucose [Mass/Vol] 91 mg/dL 70 - 99 mg/dL [place] Interpretation and review of laboratory results Abnormal [place] Potassium [Moles/Vol] 4.3 mmol/L 3.7 - 5.3 mmol/L [place] Protein [Mass/Vol] 7.4 g/dL 6.4 - 8.3 g/dL [place] Sodium [Moles/Vol] 138 mmol/L 135 - 144 mmol/L [place] Urea nitrogen [Mass/Vol] 18 mg/dL 6 - 20 mg/dL [place] Hepatitis Panel, Acuteon HAV IgM IA Qn (S) NONREACTIVE NONREACTIVE [place] Hep B Core Ab, IgM NONREACTIVE NONREACTIVE [place] Hepatitis B Surface Ag NONREACTIVE NONREACTIVE [place] Hepatitis C Ab REACTIVE Abnormal NONREACTIVE [place] Comment on above: The hepatitis C [...] Interpretation and review of laboratory results Abnormal [place] Metabolic Panelon 05-09-2019 GFR/1.73 sq M predicted among non-blacks MDRD (S/P/Bld) [Vol rate/Area] [place] Comment on above: Average GFR for 20-2 9 years old: 116 mL/min/1.73sq m Chronic Kidney Disease: <60 mL/min/1.73sq m Kidney failure: <15 mL/min/1.73sq m eGFR calculated using average adult body mass. Additional eGFR calculator available at: http://www.[employer].Jibe/multiple_crcl_2012.htm Stage 1: Some kidney damage normal GFR Stage 2: Mild kidney damage GFR 60-89 Stage 3: Moderate kidney damage GFR 30-59 Stage 4: Severe kidney damage GFR 15-29 Stage 5: Severe kidney damage GFR <15 ESRD - chronic treatment by dialysis or transplant Drug Scr, Abuse, Uron 2017 Amphetamine(s),Ur Positive Abnormal NEG [facility] Comment on above: Result Comment: (Pos itive cutoff 1000 ng/mL) Performed By: #### D AU ####[address] [address] Barbiturate(s),Ur Negative Normal NEG [facility] Comment on above: Result Comment: (Pos itive cutoff 200 ng/mL) Performed By: #### D AU ####[address] [address] Base excess Negative Normal NEG [facility] Comment on above: Result Comment: (Pos itive cutoff 300 ng/mL) Performed By: #### D AU ####[address] [address] Benzodiazepine(s) Negative Normal NEG [facility] Comment on above: Result Comment: (Pos itive cutoff 200 ng/mL) Performed By: #### D AU ####[address] [address] Cannabinoid(s),Ur Negative Normal NEG [facility] Comment on above: Result Comment: (Pos itive cutoff 50 ng/mL) Performed By: #### D AU ####[address] [address] Interpretive Info Assay provides medic al screening only. The absence of expected drug(s) and/or Normal [facility] Comment on above: Result Comment: meta bolite(s) may indicate diluted or adulterated urine, limitations of testing or timing of collection.Testing for legal purposes should be confirmed by another method. To request confirmation of test result, please call the lab within 7 days of sample submission.Performed at [facility] [address] [place] [address] Performed By: #### D AU ####[address] [address] Opiate(s), Ur Negative Normal NEG [facility] Comment on above: Result Comment: (Pos itive cutoff 300 ng/mL) Performed By: #### D AU ####[address] [address] Oxycodone, Urine Negative Normal NEG [facility] Comment on above: Result Comment: (Pos itive cutoff 100 ng/mL) Performed By: #### D AU ####[address] [address] Phencyclidine, Ur Negative Normal NEG [facility] Comment on above: Result Comment: (Pos itive cutoff 25 ng/mL) Performed By: #### D AU ####[address] [place] [address] Urine, methadone presence Negative Normal NEG [facility] Comment on above: Result Comment: (Pos itive cutoff 300 ng/mL) Performed By: #### D AU ####[address] [place] [address] Buprenorphrine, Ur NOT REPORTED Normal NEG [facility] Comment on above: Performed By: #### D AU ####[address] [address] MDMA, Urine NOT REPORTED Normal NEG [facility] Comment on above: Performed By: #### D AU ####[facility] [place] [address] Methamphetamine, Ur NOT REPORTED Normal NEG [facility] Comment on above: Performed By: #### D AU ####[facility] [place] [address].[place] [address] Propoxyphene,Urine NOT REPORTED Normal NEG [facility] Comment on above: Performed By: #### D AU ####[facility] [place] [address] Urine, tricyclic antidepressants NOT REPORTED Normal NEG [facility] Comment on above: Performed By: #### D AU ####[address] [address] Lipid Profileon 11-05-2017 Cholesterol 137 mg/dL Normal <200 [facility] Comment on above: Result Comment: Chol esterol Guidelines: <200 Desirable 200-240 Borderline >240 Undesirable Performed By: #### L IPR ####[facility] [place] [address] Cholesterol to HDL Ratio 4.3 {ratio} Normal <5 [facility] Comment on above: Performed By: #### L IPR ####[address] [address] HDL Cholesterol 32 mg/dL Low >40 [facility] Comment on above: Result Comment: HDL Guidelines: <40 Undesirable 40-59 Borderline >59 Desirable Performed By: #### L IPR ####[address] [address] LDL Cholesterol 82 mg/dL Normal 0-130 [facility] Comment on above: Result Comment: LDL Guidelines: <100 Desirable 100-129 Near to/above Desirable 130-159 Borderline >159 UndesirableDirect (measured) LDL and calculated LDL are not interchangeable tests. Performed By: #### L IPR ####[facility] [facility] [place] [address] Triglyceride 113 mg/dL Normal <150 [facility] Comment on above: Result Comment: Trig lyceride Guidelines: <150 Desirable 150- 199 Borderline 200-499 High >499 Very high Based on AHA Guidelines for fasting triglyceride, June 2012.Performed at [facility] [address] [facility] [place] [address] Performed By: #### L IPR ####[facility] [place] [address] Cholesterol in VLDL mass conc NOT REPORTED Normal 10-16 [facility] Comment on above: Performed By: #### L IPR ####[facility] [place] [address] Vital Signs Date Time Vital Sign Value Performing Clinician Facility 05-20-2025 10:14-0400 Body weight 85.91 kg Violet Woody NP Work Phone: [facility] 05-20-2025 10:14-0400 Diastolic blood pressure 70 mm[Hg] Violet Woody PROGRAM COORDINATOR Work Phone: [facility] 05-20-2025 10:14-0400 Systolic blood pressure 112 mm[Hg] Violet Woody PROGRAM COORDINATOR Work Phone: [facility] 05-06-2025 11:44-0400 Body weight 84.94 kg Yousif Aparicio DO Work Phone: [facility] 04-09-2025 10:03-0400 Body weight 83.12 kg Jody UREÑA Work Phone: [facility] 04-09-2025 10:03-0400 Diastolic blood pressure 64 mm[Hg] Jody UREÑA Work Phone: [facility] 04-09-2025 10:03-0400 Systolic blood pressure 112 mm[Hg] Jody UREÑA Work Phone: [facility] 03-11-2025 11:13-0400 Body weight 81.56 kg Yousif Markus DO Work Phone: [facility] 03-11-2025 11:13-0400 Diastolic blood pressure 70 mm[Hg] Yousif Markus DO Work Phone: [facility] 03-11-2025 11:13-0400 Systolic blood pressure 120 mm[Hg] Yousif Markus DO Work Phone: [facility] 01-19-2025 14:18-0400 Body weight 71.67 kg Yousif Markus DO Work Phone: [facility] 01-19-2025 14:18-0400 Diastolic blood pressure 70 mm[Hg] Yousif Markus DO Work Phone: [facility] 01-19-2025 14:18-0400 Systolic blood pressure 112 mm[Hg] Yousif Markus DO Work Phone: [facility] 01-01-2025 15:12-0400 Body weight 70.36 kg [facility] Nurse [facility] 01-01-2025 15:12-0400 Diastolic blood pressure 64 mm[Hg] [facility] Nurse [facility] 01-01-2025 15:12-0400 Systolic blood pressure 110 mm[Hg] [facility] Nurse [facility] 10-21-2024 07:30-0500 Body temperature 97.7 [degF] PHYSICIAN NO [facility] 10-21-2024 07:30-0500 Diastolic blood pressure 77 mm[Hg] PHYSICIAN NO [facility] 10-21-2024 07:30-0500 Heart rate 85 /min PHYSICIAN NO [facility] 10-21-2024 07:30-0500 Respiratory rate 16 /min PHYSICIAN NO [facility] 10-21-2024 07:30-0500 SaO2% (BldA) [Mass fraction] 98 % PHYSICIAN NO [facility] 10-21-2024 07:30-0500 Systolic blood pressure 120 mm[Hg] PHYSICIAN NO [facility] 10-20-2024 14:43-0500 Body height 167.64 cm PHYSICIAN NO [facility] 10-20-2024 09:00-0500 Body weight 56.2 kg PHYSICIAN NO [facility] 10-17-2024 17:00-0500 Diastolic blood pressure 70 mm[Hg] Rochelle Alvarado MD Work Phone: [facility] 10-17-2024 17:00-0500 Heart rate 81 /min Rochelle Alvarado MD Work Phone: [facility] 10-17-2024 17:00-0500 Respiratory rate 16 /min Rochelle Alvarado MD Work Phone: [facility] 10-17-2024 17:00-0500 SaO2% (BldA) [Mass fraction] 100 % Rochelle Alvarado MD Work Phone: [facility] 10-17-2024 17:00-0500 Systolic blood pressure 115 mm[Hg] Rochelle Alvarado MD Work Phone: [facility] 10-17-2024 12:00-0500 Body temperature 95.7 [degF] Rochelle Alvarado MD Work Phone: [facility] 10-17-2024 06:00-0500 Body weight 56.2 kg Rochelle Alvarado MD Work Phone: [facility] 10-16-2024 16:30-0500 Body height 170.18 cm Rochelle Alvarado MD Work Phone: [facility] 10-15-2024 20:45-0500 Diastolic blood pressure 89 mm[Hg] [facility] 10-15-2024 20:45-0500 Heart rate 101 /min [facility] 10-15-2024 20:45-0500 Mean blood pressure 102 mm[Hg] [facility] 10-15-2024 20:45-0500 Respiratory rate 14 /min [facility] 10-15-2024 20:45-0500 Systolic blood pressure 127 mm[Hg] [facility] 10-15-2024 20:00-0500 Heart rate 89 /min [facility] 10-15-2024 19:57-0500 Diastolic blood pressure 83 mm[Hg] [facility] 10-15-2024 19:57-0500 Heart rate 95 /min [facility] 10-15-2024 19:57-0500 Mean blood pressure 94 mm[Hg] [facility] 10-15-2024 19:57-0500 Respiratory rate 14 /min [facility] 10-15-2024 19:57-0500 SaO2% (BldA) [Mass fraction] 99 % [facility] 10-15-2024 19:57-0500 Systolic blood pressure 115 mm[Hg] [facility] 10-15-2024 19:00-0500 Diastolic blood pressure 85 mm[Hg] [facility] 10-15-2024 19:00-0500 Mean blood pressure 93 mm[Hg] [facility] 10-15-2024 19:00-0500 Systolic blood pressure 109 mm[Hg] [facility] 10-15-2024 18:30-0500 Respiratory rate 16 /min [facility] 10-15-2024 18:30-0500 SaO2% (BldA) [Mass fraction] 99 % [facility] 10-15-2024 17:02-0500 SaO2% (BldA) [Mass fraction] 99 % [facility] 10-15-2024 13:29-0500 Body temperature 97.7 [degF] [facility] 10-15-2024 13:29-0500 Heart rate 99 /min [facility] 10-15-2024 13:14-0500 Body temperature 97.7 [degF] [facility] 10-15-2024 13:14-0500 Heart rate 100 /min [facility] Encounters Encounter Date Encounter Type Care Provider Facility Start: 05-20-2025 End: 05-20-2025 Office outpatient visit 15 minutes Violet Woody NP Work Phone: [facility] Comment on above: Diarrhea, unspecifie d type (Primary Dx); Third trimester ([facility]); 31 weeks gestation of ([facility]); Nausea and vomiting in ([facility]) Start: 05-08-2025 End: 05-08-2025 Clinisync Result Encounter Violet Woody NP Work Phone: [facility] Unsolicited Start: 05-08-2025 End: 05-08-2025 Clinisync Result Encounter Violet Woody NP Work Phone: [facility] Unsolicited Start: 05-06-2025 End: 05-06-2025 Bamboo flowsheet Yousif Markus DO Work Phone: [facility] Start: 05-06-2025 End: 05-06-2025 Bamboo flowsheet Yousif Markus DO Work Phone: [facility] Start: 05-06-2025 End: 05-06-2025 Office outpatient visit 15 minutes Yousif Markus DO Work Phone: [facility] Comment on above: Third trimester preg lynette ([facility]); 29 weeks gestation of ([facility]); size inconsistent with dates ([facility]); Low iron; Dizziness; Nausea Start: 05-06-2025 End: 05-06-2025 ambulatory YOUSIF MARKUS Not Available Start: 04-09-2025 End: 04-09-2025 Bamboo flowsheet Jody UREÑA Work Phone: [facility] Start: 04-09-2025 End: 04-09-2025 Bamboo flowsheet Jody UREÑA Work Phone: [facility] Start: 04-09-2025 End: 04-09-2025 Office outpatient visit 15 minutes Jody UREÑA Work Phone: [facility] Comment on above: Second trimester pre gnancy ([facility]); 25 weeks gestation of ([facility] Start: 04-09-2025 End: 04-09-2025 ambulatory JODY KIMBLE Not Available Start: 04-01-2025 End: 04-01-2025 ambulatory YOUSIF MARKUS Not Available Start: 03-11-2025 End: 03-11-2025 Bamboo flowsheet Yousif Markus DO Work Phone: [facility] Start: 03-11-2025 End: 03-13-2025 Bamboo flowsheet Yousif Markus DO Work Phone: [facility] Start: 03-11-2025 End: 03-13-2025 Clinisync Result Encounter Yousif Markus DO Work Phone: [facility] External Department Unsolicited Start: 03-11-2025 End: 03-12-2025 External Result Encounter Yousif Markus DO Work Phone: [facility] External Department Unsolicited Start: 03-11-2025 End: 03-11-2025 ambulatory YOUSIF MARKUS Not Available Start: 03-11-2025 End: 03-11-2025 Patient encounter procedure Yousif Markus DO Work Phone: [facility] Start: 03-11-2025 End: 03-11-2025 Periodic preventive med est patient 18-39 yrs Yousif Markus DO Work Phone: [facility] Comment on above: Screening, , for anatomic survey ([facility]); Well woman exam with routine gynecological exam; Exposure to STD; Vaginal discharge; 21 weeks gestation of ([facility]); Second trimester ([facility]); Nausea and vomiting, unspecified vomiting type Start: [...] 01-05-2025 Emergency department patient visit FABIAN ROWE [facility] Start: 01-01-2025 End: 01-01-2025 Office outpatient visit 5 minutes [facility] Markus Nurse [facility] Comment on above: GA: 11w1d Start: 01-01-2025 End: 01-01-2025 ambulatory YOUSIF MARKUS Not Available Start: 10-18-2024 Non-patient / Non-visit PHYSICIAN NO [facility] Physician [facility] Work Phone: Start: 10-17-2024 End: 10-21-2024 Evaluation and management of inpatient PHYSICIAN NO [facility] Work Phone: Start: 10-16-2024 Non-patient / Non-visit Marc Alvarado MD Work Phone: [facility] Physician [facility] Work Phone: Start: 10-15-2024 End: 10-17-2024 Evaluation and management of inpatient Rochelle Alvarado MD Work Phone: [facility] Work Phone: Start: 10-15-2024 End: 10-15-2024 Emergency department patient visit Jayjay Freire [facility] Start: 07-21-2024 Registered Recurring Rochelle mansfield MD Work Phone: [facility] Credible Start: 07-21-2024 ambulatory Rochelle Alvarado Facility: [facility] Start: 11-26-2023 End: 11-27-2023 ambulatory ANTHONY Hanson [facility] Start: 11-05-2023 End: 11-05-2023 ambulatory Haydee Jaimesab Facility:[facility] Start: 10-30-2023 Clinisync Result Encounter Yousif Markus DO Work Phone: [facility] Unsolicited Start: 10-30-2023 Clinisync Result Encounter Yousif Markus DO Work Phone: [facility] Unsolicited Start: 10-29-2023 End: 10-29-2023 ambulatory MD Rochelle Alvarado Work Phone: [facility] Work Phone: Start: 10-29-2023 End: 10-29-2023 Departed Referred MD Rochelle Alvarado Work Phone: [facility] Start: 12-21-2022 End: 12-21-2022 ambulatory IVAN CAMEJO . Facility:[facility] Start: 11-29-2022 End: 11-29-[address] RODO MENCHACA Facility:[facility] Start: 10-25-2022 ambulatory [facility] Facility:[facility] Start: 10-11-2022 End: 10-11-[address] CHRISTINE SÁNCHEZ Facility:[facility] Start: 09-12-2022 End: 09-13-[address] YOUSIF APARICIO . Facility:[facility] Start: 08-19-2022 Encounter for preprocedural laboratory examination DR YOUSIF APARICIO . [facility] Start: 08-18-2022 End: 08-18-[address] YOUSIF APARICIO . Facility:[facility] Start: 08-16-2022 End: 08-17-[address] YOUSIF APARICIO . Facility:[facility] Start: 08-16-2022 End: 12-01-2022 Encounter for preprocedural laboratory examination DR YOUSIF [...] 03-17-2020 Emergency department patient visit [facility] Facility:[facility] Start: 11-20-2019 End: 11-20-2019 Subsequent [...] Evaluation and management of inpatient ANGELO SPICER [facility] Procedures Date Procedure Procedure Detail Performing Clinician Start: 05-20-2025 Urnls dip stick/tabl et rgnt non-auto w/o micrscp Violet Woody NP Work Phone: Start: 05-08-2025 GLUCOSE 1 HOUR Violet Woody NP Work Phone: Start: 05-06-2025 Urnls dip stick/tabl et rgnt non-auto w/o micrscp Yousif Markus DO Work Phone: Start: 04-09-2025 Urnls dip stick/tabl et rgnt [...] CBC WITH PLATEL ET NO DIFFERENTIAL Yousif Markus DO Work Phone: Start: 04-26-2020 Acute hepatitis panel E loly [...] Work Phone: Start: 11-20-2019 Antibody screen Rochelle Hoy Start: 11-20-2019 Antibody hiv-1&hiv-2 single result Georgette [...] Phone: Start: 05-09-2019 Acute hepatitis panel D isabelle Hurda Work Phone: Start: 05-09-2019 Comprehensive metabo lic panel Kadi Benites Destiny Work Phone: Start: 11-06-2017 DISCHARGE PATIENT LUIS E SPICER Start: 11-05-2017 URINE DRUG SCREEN LUIS E BARRIOSPTA Start: 11-05-2017 NURSING COMMUNICATION S ANDHAYLEE BARRIOSPTA Start: 11-05-2017 Lipid panel ANGELO GEOLOGY PROFESSOR Start: 11-05-2017 DIET GENERAL ANGELO GEOLOGY PROFESSOR Start: 11-05-2017 FULL CODE ANGELO GEOLOGY PROFESSOR Start: 11-05-2017 IP CONSULT TO HISTOR Y AND PHYSICAL ANGELO BARRIOSPTA Start: 11-05-2017 MISCELLANEOUS NURSIN G CARE ORDER (SPECIFY) ANGELO SPICER Start: 11-05-2017 OFF UNIT PRIVILEGES THOMPSON ZOILA BARRIOSPTA Start: 11-05-2017 PATIENT STATUS (DIRECT) ANGELO SPICER Plan of Treatment Date Care Activity Detail Author Start: 03-11-2028 Screening for malign ant neoplasm of cervix [facility] Start: 06-03-2025 End: 06-03-2025 Patient encounter procedure 06/03/2025 11:30 AM EDT Routine CHARBEL GIANG [address] [place] [phone] Yousif Aparicio DO [address] [place] [address] CHARBEL John OBGYOleksandr Start: 05-20-2025 End: 05-20-2026 Ova and parasite screen Ova and parasite screen Microbiology Routine Diarrhea, unspecified type Expected: 05/20/2025 (Approximate), Expires: 05/20/2026 [facility] Comment on above: Expected: 05/20/2025 (Approximate), Expires: 05/20/2026 Start: 05-20-2025 End: 05-20-2026 Stool culture Stool culture Microbiology Routine Diarrhea, unspecified type Expected: 05/20/2025 (Approximate), Expires: 05/20/2026 [facility] Work Phone: Comment on above: Expected: 05/20/2025 (Approximate), Expires: 05/20/2026 Start: 05-20-2025 End: 05-20-2025 Patient encounter procedure 05/20/2025 9:50 AM EDT Routine [facility] [address] [place] [phone] Violet Woody, PROGRAM COORDINATOR [address] [place] [address] [facility] Start: 05-20-2025 End: 05-20-2025 Professional / ancillary services management 05/20/2025 9:30 AM EDT Ancillary Procedure [facility] [address] [phone] [facility] Start: 05-18-2025 Influenza vaccination Influenza Vacc ine (#1) [facility] Start: 05-06-2025 End: 05-06-2026 Transferrin [Mass/volume] in Serum or Plasma Transferrin Lab Routine Low iron Dizziness Expected: 05/06/2025 (Approximate), Expires: 05/06/2026 [facility] Work Phone: Comment on above: Expected: 05/06/2025 (Approximate), Expires: 05/06/2026 Start: 05-06-2025 End: 09-05-2025 US for US OB follow up transabdominal approach Imaging Routine size inconsistent with dates ([facility]) Expected: 05/06/2025, Expires: 09/05/20[address] [facility] Comment on above: Expected: 05/06/2025 , Expires: 09/05/2025 Start: 05-06-2025 End: 05-06-2025 Patient encounter procedure 05/06/2025 11:30 AM EDT Office Visit [facility]OM[facility] FERNANDESN [address] [phone] Yousif Aparicio, [address] [place] [address] Arrived [facility] Comment on above: Arrived Start: 04-09-2025 End: 04-09-2025 Patient encounter procedure 04/09/2025 9:50 AM EDT Routine [facility] [address] [phone] Jody Kimble PA [address] [place] [address] Arrived [facility] Comment on above: Arrived Start: 04-08-2025 End: 04-08-2025 Patient encounter procedure 04/08/2025 11:20 AM EDT Routine [facility] [address] [place] [phone] Jody Kimble, PA [address] [place] [address] [facility] Start: 03-25-2025 End: 03-25-2025 Professional / ancillary services management 03/25/2025 11:00 AM EDT Ancillary Procedure [facility] [address] [place] [phone] [facility] Start: 03-11-2025 End: 04-10-2025 Alpha fetoprotein, maternal Alpha fetoprotein, maternal Lab Routine Screening, , for anatomic survey ([facility]) 21 weeks gestation of ([facility]) Second trimester ([facility]) Expected: 03/11/2025 (Approximate), Expires: 04/10/2025 [facility] Comment on above: Expected: 03/11/2025 (Approximate), Expires: 04/10/2025 Start: 03-11-2025 End: 06-11-2025 US for US OB 14+ weeks anatomy scan Imaging Routine Screening, , for anatomic survey ([facility]) Expected: 03/11/2025, Expires: 06/11/2025 [facility] Comment on above: Expected: 03/11/2025 , Expires: 06/11/2025 Start: 02-16-2025 End: 02-16-2025 Patient encounter procedure 02/16/2025 3:30 PM EDT Routine [facility] [address] [place] [phone] Jody Kimble PA [address] [place] [address] [facility] Start: 01-19-2025 End: 01-19-2026 CBC panel - Blood by Automated count CBC Lab Routine Diabetes mellitus screening Expected: 01/19/2025 (Approximate), Expires: 01/19/2026 [facility] Work Phone: Comment on above: Expected: 01/19/2025 (Approximate), Expires: 01/19/2026 Start: 01-19-2025 End: 01-19-2026 Measurement of glucose 1 hour after glucose challenge for glucose tolerance test Glucose tolerance, 1 hour Lab Routine Diabetes mellitus screening Expected: 01/19/2025 (Approximate), Expires: 01/19/20[address] [facility] Comment on above: Expected: 01/19/2025 (Approximate), Expires: 01/19/2026 Start: 01-19-2025 End: 01-19-2025 Patient encounter procedure 01/19/2025 2:00 PM EDT Routine [facility] OB [address] [place] [phone] Yousif Aparicio DO [address] [place] [address] [facility] Start: 01-01-2025 End: 01-01-2026 ABO/Rh ABO/Rh Lab Routine Missed menses , unspecified gestational age Expected: 01/01/2025 (Approximate), Expires: 01/01/2026 [facility] Comment on above: Expected: 01/01/2025 (Approximate), Expires: 01/01/2026 Start: 01-01-2025 End: 01-01-2026 Blood type and Indirect antibody screen panel - Blood Type and screen Lab Routine Missed menses , unspecified gestational age Expected: 01/01/2025 (Approximate), Expires: 01/01/20[address] [facility] Work Phone: Comment on above: Expected: 01/01/2025 (Approximate), Expires: 01/01/2026 Start: 01-01-2025 End: 01-01-2026 Drugs of abuse panel - Urine by Screen method Rapid drug screen, urine Lab Routine , unspecified gestational age Encounter for supervision of normal first in first trimester Expected: 01/01/2025 (Approximate), Expires: 01/01/[address] [facility] Comment on above: Expected: 01/01/2025 (Approximate), Expires: 01/01/2026 Start: 10-21-2024 [facility] Start: 10-17-2024 Hospital admission [place] Start: 10-17-2024 [facility] Start: 10-17-2024 [facility] Start: 10-17-2024 [facility] Start: 10-16-2024 [facility] Start: 10-16-2024 Referral to [employer] Supervisor [facility] Start: 10-15-2024 Referral to psychiatrist [facility] Start: 10-15-2024 Referral to neurologist [facility] Start: 10-15-2024 Hospital admission [place] Start: 01-12-2024 Screening for malign ant neoplasm of cervix HPV/Cotest [facility] Start: 12-12-2021 End: 02-11-2022 CBC W Auto Differential panel - Blood CBC + DIFF Lab Routine Iron deficiency anemia, unspecified iron deficiency anemia type Expected: 12/12/2021, Expires: 02/11/2022 [facility] Work Phone: Comment on above: Expected: 12/12/2021 , Expires: 02/11/2022 Start: 05-18-2021 Influenza vaccination INFLUENZA (#1) [facility] Start: 06-26-2020 Cervical cancer screen Cervical canc er screen [place], [place] Comment on above: Postponed from 01/11 (Not Indicated) Start: 06-26-2020 Screening for malign ant neoplasm of cervix Cervical cancer screen [place], [place] Comment on above: Postponed from 01/11 (Not Indicated) Start: 05-18-2020 Influenza vaccination Flu vaccine (# 1) [place], [place] Start: 11-21-2019 End: 11-21-2019 Ancillary Procedure 11/21/2019 Ancillary Procedure Obstetrics and Gynecology [facility] OBSTETRICS & GYNECOLOGY Start: 06-26-2019 End: 06-26-2019 Routine 06/26/2019 Routine Obstetrics and Gynecology Georgette Leung [employer] [address] [place] [address] [phone] [facility] NUCLEAR OFFICER Start: 05-18-2019 Influenza vaccination Flu vaccine (# 1) [place], [place] Start: 2015 Cervical cancer screen Cervical canc er screen [place], [place] Start: 2015 PAP TESTING PAP TESTING [facility] Start: 2013 DTaP/Tdap/Td vaccine (1 - Tdap) DTaP/Tdap/Td vaccine (1 - Tdap) [place], [place] Start: 2013 Urine microalbumin profile DTAP,TDAP,TD (1 - Tdap) [facility] Start: 01-12-2012 HEPATITIS C [facility] Start: 01-12-2012 HIV SCREENING HIV SCREENING [facility] Start: 2009 HPV vaccine (1 - Fem larissa 3-dose series) HPV vaccine (1 - Female 3-dose series) [place], [place] Start: 2007 Varicella Vaccine (1 of 2 - 13+ 2-dose series) Varicella Vaccine (1 of 2 - 13+ 2-dose series) [place] Start: 2006 Adult depression screening assessment DEPRESSION SCREENING [facility] Start: 2005 DTaP/Tdap/Td vaccine (1 - Tdap) DTaP/Tdap/Td vaccine (1 - Tdap) [place] Start: 2005 HPV vaccine (1 - 2-d ose series) HPV vaccine (1 - 2-dose series) [place] Start: 2005 HPV vaccine (1 - Fem larissa 2-dose series) HPV vaccine (1 - Female 2-dose series) [place] Start: 01-12-2000 Pneumococcal 0-64 ye ars Vaccine (1 of 1 - PPSV23) Pneumococcal 0-64 years Vaccine (1 of 1 - PPSV23) [place], [place] Start: 1999 COVID-19 VACCINE (1) COVID-19 VACCIN E (1) [facility] Start: 1995 Varicella vaccine (1 of 2 - 2-dose childhood series) Varicella vaccine (1 of 2 - 2-dose childhood series) [place] End: 11-20-2019 Bacteria identified Cx Nom (U) Urine Culture Microbiology Routine Amenorrhea Positive urine test Encounter for supervision of normal in first trimester, unspecified 1 Occurrences starting 11/20/2019 until 11/20/2019 [place] Comment on above: 1 Occurrences starti ng 11/20/2019 until 11/20/2019 Bacteria identified Cx Nom (U) [place] End: 06-19-2019 Bacteria identified Cx Nom (U) Urine Culture Microbiology Routine Amenorrhea Positive urine test Encounter for supervision of normal in first trimester, unspecified 1 Occurrences starting 06/19/2019 until 06/19/2019 [place] Comment on above: 1 Occurrences starti ng 06/19/2019 until 06/19/2019 Bacteria identified in Urine by Culture Urine culture Microbiology Routine Missed menses Ordered: 01/01/2025 [facility] Comment on above: Ordered: 01/01/2025 End: 11-20-2019 C.trachomatis N.gonorrhoeae DNA, Urine C.trachomatis N.gonorrhoeae DNA, Urine Microbiology Routine Amenorrhea Positive urine test Encounter for supervision of normal in first trimester, unspecified 1 Occurrences starting 11/20/2019 until 11/20/2019 [place] Comment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
== END 2025-05-21 13:52 | disposition home or self-care (01) ==
LOC: LAB 13:51
PROVIDERS: Visit Provider Nurse Practitioner Family
DX: R19.7 Diarrhea, unspecified (principal)
CPT/HCPCS: 87045; 87046; 87177; 87209; 87427

== ENCOUNTER 2025-06-03 07:40 | Outpatient (RCR) | payer OTHER, SELFPAY ==
[2025-05-22 10:33] VITALS: BP 113/74; PULSE 74; TEMP 36.5; O2SAT 98
[2025-05-22] MEDS: IRON SUCROSE COMPLEX 100 MG in 0.9 % SODIUM CHLORIDE 100 ML 420 MG IV (10:47)
[2025-05-25 10:20] VITALS: BP 116/72; PULSE 94; TEMP 37.2; O2SAT 97
[2025-05-25] MEDS: IRON SUCROSE COMPLEX 200 MG in 0.9 % SODIUM CHLORIDE 100 ML 220 MG IV (10:31)
[2025-05-27 10:25] VITALS: BP 106/68; PULSE 94; TEMP 36.2; O2SAT 97
[2025-05-27] MEDS: IRON SUCROSE COMPLEX 200 MG in 0.9 % SODIUM CHLORIDE 100 ML 220 MG IV (10:34)
[2025-05-29 10:39] VITALS: BP 112/61; PULSE 103; TEMP 36.6; O2SAT 97
[2025-05-29] MEDS: IRON SUCROSE COMPLEX 100 MG in 0.9 % SODIUM CHLORIDE 100 ML 420 MG IV (10:50)
[2025-06-01 10:33] VITALS: BP 128/76; PULSE 107; TEMP 36.4; O2SAT 97
[2025-06-01] MEDS: IRON SUCROSE COMPLEX 200 MG in 0.9 % SODIUM CHLORIDE 100 ML 220 MG IV (10:55)
[2025-06-03 10:28] VITALS: BP 100/63; PULSE 102; TEMP 36.4; O2SAT 95
[2025-06-03] MEDS: IRON SUCROSE COMPLEX 200 MG in 0.9 % SODIUM CHLORIDE 100 ML 220 MG IV (10:42)
== END 2025-06-16 23:59 | disposition home or self-care (01) ==
LOC: INF 07:40
PROVIDERS: Visit Provider Obstetrics & Gynecology
DX: O99.019 Anemia complicating pregnancy, unspecified trimester (principal); D64.9 Anemia, unspecified; Z3A.00 Weeks of gestation of pregnancy not specified
CPT/HCPCS: 96365; 96374; J1756

== ENCOUNTER 2025-06-18 14:05 | Outpatient (OUT) | payer OTHER, SELFPAY ==
--- OUTSIDE RECORDS SUMMARY | 2025-01-20 11:15 | XMS_ITS ---
Author Organization [facility] Servic es Address [address] [place] [address] Care Team Providers Care Cafe Assistant Name Role Phone Jennie Harris Primary Care Provider Prisca Moss Unavailable [phone] Jamila Winter Unavailable REASON FOR VISIT MEDICATION QUESTIONS PT IS Encounters Encounter Location Date Provider Diagnosis [address] [address] 01/20/2025 Jamila Winter Plan Of Treatment No Information Progress Notes * NOE ERVINDOB: 4 (30 yo F)Acc No.[id number]:01/20/2025 Progress Notes Patient: Lorrie MONTESMICHAEL NOE Provider: Lorrie Choudhary CNP :1995 A ge:30 Y S ex:Female Date:01/20/2025 Address:[address] [place], [place] [address] Pcp:Jennie Harris Subjective: * Chief Complaints: * 1 . MEDICATION QUESTIONS PT IS . * Medical History: Objective: * Vitals: Assessment: Plan: * Treatment: * Images: * Electronic signature of MASSIEL Forde on 06/18/2025 at 02:08 PM EDT Sign off status: Pending * Provider: Lorrie Choudhary CNP Date: 0 01/20/2025 Generated for Oleksandr stern/Chris/Jorge Aitting on: 1 02:08 PM EDT
--- OUTSIDE RECORDS SUMMARY | 2025-01-26 09:45 | XMS_ITS ---
Author Organization [facility] Address [address] [facility] [place] [address] Care Team Providers Care Campus Wellness Coordinator Name Role Phone Jennie Harris Primary Care Provider [phone] Prisca Moss Unavailable [phone] Marla Edwards Unavailable [phone] REASON FOR VISIT MEDICATION QUESTIONS PT IS Encounters Encounter Location Date Provider Diagnosis [facility] [address] [place] [address] 01/26/2025 Marla Edwards Plan Of Treatment No Information Progress Notes * NOE ERVINDOB: 4 (30 yo F)Acc No.[id number]:01/26/2025 Progress Notes Patient: Lorrie ANGLIN NOE Appointment Provider: Lorrie WALSH DO :1995 A ge:30 Y S ex:Female Date:01/26/2025 Address:[address] [place], [place] [address] Pcp:Jennie Harris Subjective: * Chief Complaints: * 1 . MEDICATION QUESTIONS PT IS . * Medical History: Objective: * Vitals: Assessment: Plan: * Treatment: * Images: * Electronic signature of Js Edwards DO on 06/18/2025 at 02:08 PM EDT Sign off status: Pending * Appointment Provider: Lorrie WALSH DO Date: 0 01/26/2025 Generated for Oleksandr stern/Chris/Robles on: 1 02:08 PM EDT
--- OUTSIDE RECORDS SUMMARY | 2025-02-11 09:30 | XMS_ITS ---
Author Organization [facility] es Address [address] [facility] [place] [address] Care Team Providers Care Biology Instructor Name Role Phone Jennie Harris Primary Care Provider Kaylijacqui Prisca Unavailable [phone] REASON FOR VISIT madeleine prisca Encounters Encounter Location Date Provider Diagnosis [address] [place] [address] 02/11/2025 Jennie Harris Plan Of Treatment No Information Progress Notes * NOE ERVINDOB: 4 (30 yo F)Acc No.[id number]:02/11/2025 Progress Notes Patient: NOE BOSTON Provider: JUANI Martinez :1995 A ge:30 Y S ex:Female Date:02/11/2025 Address:[address] [place], [place] [id number] Subjective: * Chief Complaints: * 1 . Madeleine prisca. * Medical History: Objective: * Vitals: Assessment: Plan: * Treatment: * Images: * Electronic signature of Tsesa Harris CNP on 06/18/2025 at 02:08 PM EDT Sign off status: Pending * Provider: JUANI Martinez Date: 0 02/11/2025 Generated for Printi ng/Faxing/eTransmitting on: 1 02:08 PM EDT
--- OUTSIDE RECORDS SUMMARY | 2025-05-07 09:15 | XMS_ITS ---
Author Organization [facility] Serv[facility] es Address [address] [facility] [place] [address] Care Team Providers Care Underwear Hemmer Name Role Phone Jennie Harris Primary Care Provider [phone] KaylijacquiPrisca [phone] REASON FOR VISIT vomiting/diarrhea while Encounters Encounter Location Date Provider Diagnosis [address] [place] [address] 05/07/2025 Jennie Harris Plan Of Treatment No Information Progress Notes * ARCADIO NOEDOB: 4 (30 yo F)Acc No.[id number]:05/07/2025 Progress Notes Patient: NOE BOSTON Provider: JUANI Martinez :1995 A ge:30 Y S ex:Female Date:05/07/2025 Address:[address] [place], [place] [address] Subjective: * Chief Complaints: * 1 . Vomiting/diarrhea while . * Medical History: Objective: * Vitals: Assessment: Plan: * Treatment: * Images: * Electronic signature of Tessa Harris CNP on 06/18/2025 at 02:08 PM EDT Sign off status: Pending * Provider: JUANI Martinez Date: 0 05/07/2025 Generated for Printi ng/Fabrianna/eTransmitting on: 1 02:08 PM EDT
--- OUTSIDE RECORDS SUMMARY | 2025-06-08 11:10 | XMS_ITS | Encounter Summary ---
Author Organization [facility] Address [address] [place] [address] Care Team Providers Care Tennis Court Attendant Name Role Phone Unavailable Primary Care Provider Unavailabl e Reason for Visit * Reason Comments Routine Visit Encounter Details Date Type Department Care Team (Late st Contact Info) Description 06/08/2025 11:10 AM EDT Routine [facility] [address] [place] [phone] Yousif Aparicio DO [address] [place] [address] Anemia, unspecified type (Primary Dx); Third trimester ([facility]); 33 weeks gestation of ([facility]); Gestational diabetes mellitus (GDM) in third trimester, gestational diabetes method of control unspecified ([facility]); H/O pre-eclampsia in prior , currently ([facility]); H/O miscarriage, currently ([facility]); DANICA (amniotic fluid index) borderline low Social History Tobacco Use Types Packs/Day Years [...] Sign Reading Time Taken Comments Blood Pressure 118/72 06/08/2025 11:30 AM EDT Pulse - - Temperature - - Respiratory Rate - - Oxygen Saturation - - Inhaled Oxygen Concentration - - Weight 87.5 kg (193 lb) 06/08/2025 11:30 AM EDT Height - - Body Mass Index - - documented in this encounter Progress Notes * Shira Solano REN - 06/08/2025 11:10 AM EDT Reason for Appointment: Patient ID: [...] (LINZESS) 145 mcg, Oral, Daily before breakfast metoclopramide (REGLAN) 10 mg, Oral, 3 times daily before meals, Take 1 tablet by mouth 30 minutes prior to meals 3 times daily as needed for nausea. Vit-Fe Fumarate-FA ( Vitamins) 28-0.8 MG tablet 1 tablet, Oral, Daily promethazine (PHENERGAN) 12.5 mg, Oral, Every 6 hours PRN ALLERGIES Allergies Allergen Reactions Bupropion Other Reaction(s): Seizure PROBLEMS Active Ambulatory Problems Diagnosis Date Noted No Active Ambulatory Problems Resolved Ambulatory Problems Diagnosis Date Noted No Resolved Ambulatory Problems Past Medical History: Diagnosis Date Anxiety Bipolar disorder ([facility]) Depression Fibromyalgia Gestational diabetes ([facility]) Insomnia Irritable bowel syndrome with constipation Opioid abuse ([facility]) Tobacco user HISTORY PAST MEDICAL HISTORY SOCIAL HISTORY Past Medical History: Diagnosis Date Anxiety Bipolar disorder ([facility]) Depression Fibromyalgia Gestational diabetes ([facility]) Insomnia Irritable bowel syndrome with constipation Opioid abuse ([facility]) Tobacco user Social History Tobacco Use Smoking status: Never Smokeless tobacco: Never Substance Use Topics Alcohol use: Never Drug use: Never FAMILY HISTORY No family history on file. SURGICAL HISTORY Past Surgical History: Procedure Laterality Date DILATION AND CURETTAGE 08/18/2022 PAP SMEAR 08/04/2021 Normal REVIEW OF SYSTEMS Review of Systems: Review of Systems OBJECTIVE Objective: OBGyn Exam Vitals: There is no height or weight on file to calculate BMI. BP: Patient's last menstrual period was 10/21/2024 (exact date). ASSESSMENT & PLAN ICD-10-CM 1. Third trimester ([facility]) Z34.93 2. 33 weeks gestation of ([facility]) Z3A.33 3. Gestational diabetes mellitus (GDM) in third trimester, gestational diabetes method of control unspecified ([facility]) O24.419 4. H/O pre-eclampsia in prior , currently ([facility]) O09.299 5. H/O miscarriage, currently ([facility]) O09.299 Return OB: Patient presents today for a routine obstetrics appointment. Patient is currently 33w5d . Patient states she is doing well but has complaints of being tired due to current . Patient has verbalizes frequent movement. labor precautions was discussed/given and patient was instructed to perform kick counts three times a day. No orders of the defined types were placed in this encounter. Follow Up: Patient is to return to office in 2 week for routine OB appointment. Documented by Shira Solano MA on behalf of: Yousif Aparicio DO documented in this encounter Miscellaneous Notes * Addendum Note - Mundo Woody NP - 06/08/2025 11:10 AM EDTAddended by: MUNDO WOODY on: 06/08/2025 11:52 AM Modules accepted: Orders documented in this encounter Plan of Treatment Upcoming Encounters Date Type Department Care Team (Late st Contact Info) Description 06/23/2025 2:30 PM EDT Ancillary Procedure [facility] [place] [facility] [address] [place] [address] 06/23/2025 3:00 PM EDT Routine [facility] [place] [facility] [address] [place] [address] Mundo Wooyd NP [address] [place] [address] Scheduled Orders Name Type Priority Associated Diagnoses Orde r Schedule US OB limited 1+ fetuses Imaging Routine DANICA (amniotic fluid index) borderline low Expected: 06/08/2025, Expires: 09/07/2025 CBC and differential Lab Routine Anemia, unspecified type Ordered: 06/08/2025 documented as of this encounter Procedures Procedure Name Priority Date/Time Associated Diagnosis Comments POCT URINALYSIS DIPSTICK Routine 06/08/2025 11:32 AM EDT Third trimester ([facility]) documented in this encounter Results * POCT urinalysis dipstick manually resulted (06/08/2025 11:32 AM EDT) Color, UA Yellow Clarity, UA Clear Glucose, UA Negative Negative - 2000(110) ++++ mg/dL Bilirubin, UA Negative Negative - 4(70) +++ mg/dL Ketones, UA Negative Negative - 160(16) ++++ mg/dL Spec Grav, UA 1.010 1 - 1.03 Blood, UA Negative Negative - 50 Chriss/mcL pH, UA 8.0 5 - 9 Protein, UA Negative Negative - 2000(20) ++++ mg/dL Urobilinogen, UA 1.0 0.2 - 12 mg/dL Leukocytes, UA Negative Negative - 500+++ Leila/mcL Nitrite, UA Negative Negative - Positive Urine 06/08/2025 11:3 2 AM EDT Result [facility] Yousif Aparicio DO POINT OF CARE TEST ENTER/EDIT OR DERABLES Final Result documented in this encounter Visit Diagnoses Diagnosis Anemia, unspecified type- Primary Third trimester ([facility]) state, incidental 33 weeks gestation of ([facility]) Gestational diabetes mellitus (GDM) in third trimester, gestational diabetes method of control unspecified ([facility]) H/O pre-eclampsia in prior , currently ([facility]) H/O miscarriage, currently ([facility]) DANICA (amniotic fluid index) borderline low Nonspecific abnormal finding in amniotic fluid documented in this encounter
--- OUTSIDE RECORDS SUMMARY | 2025-06-18 14:08 | XMS_ITS | Encounter Summary ---
Author Organization [facility] Address [address] [place] [address] Care Team Providers Care Office Machine Punch Operator Name Role Phone Unavailable Primary Care Provider Unavailabl e Encounter Details Date Type Department Care Team (Late Contact Info) Description 06/30/2023 Clinisync Result Encounter [facility] External Department Unsolicited Shon Aparicio DO [address] [place], [place] [id number] Social History Tobacco Use Types Packs/Day Years [...] 2:30 PM EDT Ancillary Procedure [facility] [place] [facility] [address] [place] [phone] 06/23/2025 3:00 PM EDT Routine [facility] [place] [facility] [address] [facility] [place] [phone] Violet Woody, PROGRAM DIRECTOR SCOUTING [address] [place] [phone] documented as of this encounter Procedures Procedure Name Priority Date/Time Associated Diagnosis Comments US OB CERVICAL LENGTH 06/30/2023 8:54 AM EDT documented in this encounter Results * US OB CERVICAL LENGTH (06/30/2023 8:54 AM EDT) Anatomical Region Laterality Modality Other 06/30/2023 8:54 AM EDT Narrative 06/30/2023 8:54 [place] [address] Ultrasound Report Signed Patient: NOE ERVIN MR#: [id number] : 1995 Acct:[id number] Age/Sex: 28 / F ADM Date: 06/29/23 Loc: US Attending Dr: Shon Aparicio D.O. Ordering Physician: Shon Aparicio D.O. Date of Service: 06/29/23 Procedure(s): US OB cervical length Accession Number(s): [id number] cc: FAMILY,HEALTH SER ; Shon Aparicio D.O. [place] [id number] Patient Name: NOE ERVIN MRN: [id number] date: 1995 Sex: F Assigned Patient Location: Current Patient Location: Accession/Order Number: [id number] Exam Date: 06/29/2023 18:00 Report Date: 06/30/2023 [...] Rodriguez M.D. Signed By: 06/30/2356 DD/ TD/TT: Assistant Nurse Manager: Procedure Note Radiology, Radiologist, MD - 06/30/2023 [place] [address] Ultrasound Report Signed Patient: NOE ERVIN MMR#: [id number] : 1995Acct:[id number] Age/Sex: 28 / FADM Date: 06/29/23 Loc: US Attending Dr: Shon Aparicio D.O. Ordering Physician: Shon Aparicio D.O. Date of Service: 06/29/23 Procedure(s): US OB cervical length Accession Number(s): [id number] cc: FAMILY,HEALTH SER ; Shon Aparicio D.O. The [place] [id number] Patient Name: NOE ERVIN MRN: [id number] date: 1995 Sex: F Assigned Patient Location: US Current Patient Location: Accession/Order Number: [id number] Exam Date: 06/29/2023 18:00 Report Date: 06/30/2023 [...] Rodriguez M.D. Signed By:06/30/2356 DD/ 3 TD/TT: Assistant Nurse Manager: us Shon Aparicio DO [facility] Final Result documented in this encounter Visit Diagnoses Not on filedocumented in this encounter
--- OUTSIDE RECORDS SUMMARY | 2025-06-18 14:08 | XMS_ITS | Encounter Summary ---
Author Organization [facility] Address [address] [place] [address] Care Team Providers Care Cryptologic Technician Name Role Phone Unavailable Primary Care Provider Unavailabl e Encounter Details Date Type Department Care Team (Late Contact Info) Description 06/30/2023 Clinisync Result Encounter NOMS External Department Unsolicited Shon Aparicio DO [address] [facility] [address] [place], [place] [address] Social History Tobacco Use Types Packs/Day Years [...] Department Care Team (Late Contact Info) Description 06/23/2025 2:30 PM EDT Ancillary Procedure [facility] [address] [place] [address] 06/23/2025 3:00 PM EDT Routine [facility] [address] [facility] [place] [address] Violet Woody, SPORTS FITNESS AND WELLNESS DIRECTOR [address] [place] [address] documented as of this encounter Procedures Procedure Name Priority Date/Time Associated Diagnosis Comments US OB ANATOMY 06/30/2023 8:54 AM EDT documented in this encounter Results * US OB ANATOMY (06/30/2023 8:54 AM EDT) Anatomical Region Laterality Modality Other 06/30/2023 8:54 AM EDT Narrative 06/30/2023 8:54 [place] [address] Ultrasound Report Signed Patient: NOE ERVIN MR#: [id number] : 1995 Acct:[id number] Age/Sex: 28 / F ADM Date: 06/29/23 Loc: US Attending Dr: Shon Aparicio D.O. Ordering Physician: Shon Aparicio D.O. Date of Service: 06/29/23 Procedure(s): US OB anatomy Accession Number(s): [id number] cc: FAMILY,HEALTH SER ; Shon Aparicio D.O. [place] [address] Patient Name: NOE ERVIN MRN: [id number] date: 1995 Sex: F Assigned Patient Location: US Current Patient Location: Accession/Order Number: [id number] Exam Date: 06/29/2023 18:00 Report Date: 06/30/2023 [...] Rodriguez M.D. Signed By: 06/30/2356 DD/ TD/TT: Mixer Helper: Procedure Note Radiology, Radiologist, MD - 06/30/2023 [place] [address] Ultrasound Report Signed Patient: NOE ERVIN MMR#: [id number] : 1995Acct:[id number] Age/Sex: 28 / FADM Date: 06/29/23 Loc: US Attending Dr: Shon Aparicio D.O. Ordering Physician: Shon Aparicio D.O. Date of Service: 06/29/23 Procedure(s): US OB anatomy Accession Number(s): [id number] cc: FAMILY,HEALTH SER ; Shon Aparicio D.O. The [address] [address] Patient Name: NOE ERVIN MRN: [id number] date: 1995 Sex: F Assigned Patient Location: US Current Patient Location: Accession/Order Number: [id number] Exam Date: 06/29/2023 18:00 Report Date: 06/30/2023 [...] Rodriguez M.D. Signed By:06/30/2356 DD/ 3 TD/TT: Mixer Helper: us Shno Aparicio DO [facility] Final Result documented in this encounter Visit Diagnoses Not on filedocumented in this encounter
--- OUTSIDE RECORDS SUMMARY | 2025-06-18 14:08 | XMS_ITS | Encounter Summary ---
Author Organization [facility] Address [address] [facility] [place] [address] Care Team Providers Care Alterations Supervisor Name Role Phone Unavailable Primary Care Provider Unavailabl e Encounter Details Date Type Department Care Team (Late Contact Info) Description 09/09/2023 Clinisync Result Encounter NOMS External Department Unsolicited Jody Hall PA [address] [facility] [address] [place], [facility] Social History Tobacco Use Types Packs/Day Years [...] EDT Ancillary Procedure [facility] [address] [facility] [place] [phone] 06/23/2025 3:00 PM EDT Routine [facility] [address] [facility] [place] [address] Violet Woody, CONCRETE BATCH PLANT OPERATOR [address] [facility] [place] [address] documented as of this encounter Procedures Procedure Name Priority Date/Time Associated Diagnosis Comments US OB BPP W NON-STRESS 09/09/2023 12:17 AM EST documented in this encounter Results * US OB BPP W NON-STRESS (09/09/2023 12:17 AM EST) Anatomical Region Laterality Modality Other 09/09/2023 12:1 7 AM EST Narrative 09/09/2023 12:19 [place] [address] Ultrasound Report Signed Patient: NOE ERVIN MR#: [id number] : 1995 Acct:[id number] Age/Sex: 28 / F ADM Date: 09/07/23 Loc: US Attending Dr: Yousif Aparicio D.O. Ordering Physician: Jody Hall Date of Service: 09/07/23 Procedure(s): US OB BPP w non-stress Accession Number(s): [id number] cc: Jody Hall; FAMILY,HEALTH [place] [address] Patient Name: NOE ERVIN MRN: [id number] date: 1995 Sex: F Assigned Patient Location: [facility] Current Patient Location: Accession/Order Number: [id number] Exam Date: 09/07/2023 17:10 Report Date: 09/09/2023 [...] M.D. Signed By: 09/09/23 001 DD/ TD/TT: Golf Ball Inspector: Procedure Note Radiology, Radiologist, MD - 09/09/2023 [place] [address] Ultrasound Report Signed Patient: NOE ERVIN MMR#: [id number] : 1995Acct:[id number] Age/Sex: 28 / FADM Date: 09/07/23 Loc: US Attending Dr: Yousif Aparicio D.O. Ordering Physician: Jody Hall Date of Service: 09/07/23 Procedure(s): US OB BPP w non-stress Accession Number(s): [id number] cc: Jody Hall; FAMILY,HEALTH [facility] The [place] [address] Patient Name: NOE ERVIN MRN: [id number] date: 1995 Sex: F Assigned Patient Location: [facility] Current Patient Location: Accession/Order Number: [id number] Exam Date: 09/07/2023 17:10 Report Date: 09/09/2023 [...] Rogelio Rodriguez M.D. Signed By:09/09/239 DD/ TD/TT: Golf Ball Inspector: us Jody UREÑA [facility] Final Result documented in this encounter Visit Diagnoses Not on filedocumented in this encounter
--- OUTSIDE RECORDS SUMMARY | 2025-06-18 14:08 | XMS_ITS | Clinical Summary ---
Author Organization Tax Alli tem Address [facility] [id number] [address] [place] [address] Care Team Providers Care Ship Keeper Name Role Phone Prisca Dave BI TECHNICAL LEAD-WEIGHTER Primary Care Provider Allergies No known active [...] 4:41 PM 02/23/2017 3:13 PM Care Teams Ship Keeper Relationship Specialty Start Date End Date Prisca Dave APRN-MARIANO [address] [place] [address] PCP - General Family Medicine 04/24/23
--- OUTSIDE RECORDS SUMMARY | 2025-06-18 14:08 | XMS_ITS | Patient Health Record ---
Author Organization [facility] es Address [address] [place] [address] Care Team Providers Care Thermal Technician Name Role Phone Jennie Harris Primary Care Provider Prisca Moss Unavailable [phone] Marla Edwards Unavailable [phone] Jamila Winter Unavailable [phone] Allergies Allergen (clinical drug ingredient) Drug/Non Drug Allergy documented on EMR Reaction Allergy Type Onset Date Status Wellbutrin Seizure Drug Allergy Active Reason For Referral Reason SCHEDULED 11/20 Hep C positive, needing treatment. Please evaluate and treat. Diagnosis 1 Chronic hepatitis C without hepatic coma (B18.2) Referral Organization [facility] Referring Provider First Name Prisca Referring Provider Last Name Isa Referring Provider Speciality Nurse Melanie parkerr Referred Provider [facility] , . Referred Provider Specialty [...] work (ex. student, retired, disabled, unpaid primary career information specialist) In the past year, have you o [...] 2 nights in a row in a correction, snf, longterm center, or juvenile correctional facility? No Are [...] W/U Status Risk Notes Problem Tobacco user (754028046) Nicotine dependence, unspecified, uncomplicated (F17.200) Active confirmed Problem Anxiety (32622004) Anxiety (F41.9) Active confirmed Problem Bipolar 1 disorder (322585151) Bipolar 1 disorder (F31.9) Active confirmed Problem Neuropathy (363946132) Neuropathy (G62.9) Active confirmed Problem Chronic hepatitis C (611084438) Chronic hepatitis C without hepatic coma (B18.2) Active confirmed Problem Recurrent depression (030106835) Recurrent depression (F33.9) Active confirmed Vital Signs Heart Rate 90 /min 02/17/2025 Temperature 97.1 degrees Fahrenheit 02/17/2025 Respiratory Rate 20 /min 02/17/2025 Oximetry 95 % 02/17/2025 Blood pressure diastolic 73 mm Hg 02/17/2025 Height 5ft6in in 02/17/2025 Blood pressure systolic 115 mm Hg 02/17/2025 Weight 170.2 lbs 02/17/2025 BMI 27.47 kg/m2 02/17/2025 Encounters Encounter Location Date Provider Diagnosis [place] [address] [place] [address] 06/18/2024 Prisca zzzMurray Neuropathy G62.9 [place] [address] [place] [address] 07/15/2024 Prisca zzzMurray Neuropathy G62.9 [place] [address] [place] [address] 07/16/2024 Prisca zzzMurray Chronic constipation K59.09 [place] [address] [place] [address] 08/19/2024 Prisca zzzMurray Neuropathy G62.9 [place] [address] [place] [address] 10/24/2024 Prisca zzzMurray Chronic constipation K59.09 [place] [address] [place] [address] 12/09/2024 Prisca zzzMurray Chronic constipation K59.09 [place] [address] [place] [address] 12/22/2024 Prisca zzzMurray Bipolar 1 disorder F31.9 ; Anxiety F41.9 and Neuropathy G62.9 [place] [address] [place] [address] 01/12/2025 Prisca zzzMurray Chronic constipation K59.09 [place] [address] [place] [address] 01/19/2025 Jamila Winter Anxiety F41.9 and Bipolar 1 disorder F31.9 [place] [address] [place] [address] 01/21/2025 Marla erikaPatrick Neuropathy G62.9 [facility] [address] [place] [address] 02/20/2025 Jennie Kimberly Bipolar 1 disorder F31.9 and Neuropathy G62.9 [place] [address] [address] [address] 03/24/2025 Jnenie Kimberly Bipolar 1 disorder F31.9 and Neuropathy G62.9 [place] [address] [address] [address] 04/22/2025 Jennie Harris Neuropathy G62.9 [place] [address] [place] [address] 05/25/2025 Jennie Harris Neuropathy G62.9 [facility] [address] [place] [address] 11/21/2024 Prisca erikaMurray Sore throat J02.9 ; Neuropathy G62.9 ; Chronic constipation K59.09 ; Bipolar 1 disorder F31.9 and Anxiety F41.9 [facility] [address] [place] [address] 02/17/2025 Jennie Kimberly Bipolar 1 disorder F31.9 ; Anxiety F41.9 ; 17 weeks gestation of Z3A.17 and Upper respiratory tract infection, unspecified type J06.9 [facility] [address] [place] [address] 10/23/2024 Prisca zzzMurray Anxiety F41.9 ; Chronic [...] plan. 10/24/2024 Chronic constipation (ICD-10 - K59.09) 06/18/2024 Neuropathy (ICD-10 - G62.9) 07/15/2024 Neuropathy (ICD-10 - G62.9) 07/16/2024 Chronic constipation (ICD-10 - K59.09) 08/19/2024 Neuropathy (ICD-10 - G62.9) 01/12/2025 Chronic constipation (ICD-10 - K59.09) 01/19/2025 Anxiety (ICD-10 - F41.9) 01/21/2025 Neuropathy (ICD-10 - G62.9) 02/17/2025 Anxiety (ICD-10 - F41.9) Discontinue propranolol start celexa 10mg daily. Instructed patient to let Dr. Aparicio supervisor hide house know she started celexa. Follow up in 3 months. All questions and concerns addressed. 02/17/2025 Bipolar 1 disorder (ICD-10 - F31.9) 02/20/2025 Bipolar 1 disorder (ICD-10 - F31.9) 03/24/2025 Bipolar 1 disorder (ICD-10 - F31.9) 04/22/2025 Neuropathy (ICD-10 - G62.9) 05/25/2025 Neuropathy (ICD-10 - G62.9) 03/24/2025 Neuropathy (ICD-10 [...] having a hard time. She will call [facility] for her follow up appt. Reviewed red flag symptoms, parameters to RTC. 02/17/2025 Other Body Mass Index : Care Instructions material was printed Plan Of Treatment No Information Insurance Providers Payer Name Payer Address Payer Phone Subscriber Number Group Number Insured Name Patient Relationship to Insured Coverage Start Date Coverage End Date [place] Medicaid [address] CLAIMS DEPT [facility] [place] [address] [id number] ARCADIO NOE Self - patient is the insured 2 [employer] [address] [place] [address] [phone] [id number] ARCADIO NOE Self - patient is the insured 2 [employer] [address] [address] [place] [address] [id number] ARCADIONAYANNOE Self - patient is the insured [address] [facility] [address] [place] [address] [id number] SILVESTREBERNARDONAYANNOE Self - patient is the insured 3 [facility] ed 22. [address] CLAIMS DEPT [facility] [place] [address] [id number] ARCADIONOE Self - patient is the insured 2 3 zMEDICAID CFC after [facility] med 22 [address] [place] [address] [id number] OSCARMICHAELNOE Self - patient is the insured 2 3 Medical (General) History Medical History History ICD Code depression anxiety neuropathy FX of left cheek Hospitalization History Reason Date(Month/Year) 1 / ICU 2024 Detox 11/20/2023 ChildBirth x3
--- OUTSIDE RECORDS SUMMARY | 2025-06-18 14:08 | XMS_ITS | Encounter Summary ---
Author Organization [facility] Address [address] [place] [address] Care Team Providers Care X Ray Physician Name Role Phone Unavailable Primary Care Provider Unavailabl e Encounter Details Date Type Department Care Team (Late Contact Info) Description 03/19/2025 Orders Only [facility] [address] [place] [address] Anne-Marie Mcleod MA Social History Tobacco [...] Description 06/23/2025 2:30 PM EDT Ancillary Procedure [facility] [address] [place] [address] 06/23/2025 3:00 PM EDT Routine [facility] [address] [place] [address] Violet Woody, DOOR TENDER [address] [place] [address] documented as of this encounter Procedures [...]
--- OUTSIDE RECORDS SUMMARY | 2025-06-18 14:08 | XMS_ITS | Encounter Summary ---
Author Organization [facility] Address [address] [place] [address] Care Team Providers Care Billing Administrator Name Role Phone Unavailable Primary Care Provider Unavailabl e Encounter Details Date Type Department Care Team (Late Contact Info) Description 09/05/2023 Clinisync Result Encounter NOMS External Department Unsolicited Shon Aparicio DO [address] [facility] [address] [place], [place] [phone] Social History Tobacco Use Types Packs/Day Years [...] EDT Ancillary Procedure [facility] [address] [place] [address] 06/23/2025 3:00 PM EDT Routine [facility] [address] [facility] [place] [address] Violet Woody, [employer] [address] [place] [address] documented as of this encounter Procedures Procedure Name Priority Date/Time Associated Diagnosis Comments US OB GROWTH 09/05/2023 3:57 PM EST documented in this encounter Results * US OB GROWTH (09/05/2023 3:57 PM EST) Anatomical Region Laterality Modality Other 09/05/2023 3:57 PM EST Narrative 09/05/2023 4:00 [place] [address] Ultrasound Report Signed Patient: NOE ERVIN MR#: [id number] : 1995 Acct:[id number] Age/Sex: 28 / F ADM Date: 09/05/23 Loc: US Attending Dr: Shon Aparicio D.O. Ordering Physician: Shon Aparicio D.O. Date of Service: 09/05/23 Procedure(s): US OB growth Accession Number(s): [id number] cc: FAMILY,HEALTH SER ; Shon Aparicio D.O. [place] [address] Patient Name: NOE ERVIN MRN: [id number] date: 1995 Sex: F Assigned Patient Location: Current Patient Location: US Accession/Order Number: [id number] Exam Date: 09/05/2023 15:18 Report Date: 09/05/2023 [...] Signed By: 09/05/23 1600 DD/ 155 TD/TT: Leather Worker: Procedure Note Radiology, Radiologist, MD - 09/06/2023 [place] [address] Ultrasound Report Signed Patient: NOE ERVIN MMR#: [id number] : 1995Acct:[id number] Age/Sex: 28 / FADM Date: 09/05/23 Loc: US Attending Dr: Shon Aparicio D.O. Ordering Physician: Shon Aparicio D.O. Date of Service: 09/05/23 Procedure(s): US OB growth Accession Number(s): [id number] cc: FAMILY,HEALTH SER ; Shon Aparicio D.O. The [place] [address] Patient Name: NOE ERVIN MRN: [facility]:[id number] date: 1995 Sex: F Assigned Patient Location: US Current Patient Location: US Accession/Order Number: [id number] Exam Date: 09/05/2023 15:18 Report Date: 09/05/2023 [...] M.D. Signed By:09/05/23 1600 DD/ 1557 TD/TT: Leather Worker: us Shon Aparicio DO [facility] Final Result documented in this encounter Visit Diagnoses Not on filedocumented in this encounter
--- OUTSIDE RECORDS SUMMARY | 2025-06-18 14:09 | XMS_ITS | Encounter Summary ---
Author Organization [facility] Address [address] [place] [address] Care Team Providers Care Community Education Specialist Name Role Phone Unavailable Primary Care Provider Unavailabl e Reason for Visit * Reason Comments Med Refill Encounter Details Date Type Department Care Team (Late st Contact Info) Description 05/07/2023 Refill [facility] [address] [place] [address] Yousif Aparicio DO [address] [facility] [address] [place], [id number] Missed menses Social History Tobacco Use Types [...] PM EDT Ancillary Procedure [facility] [address] [place] [address] 06/23/2025 3:00 PM EDT Routine [facility]aj [facility] [address] [facility] [place] [address] Violet Woody, TELMA [address] [facility] [place] [address] documented as of this encounter Visit Diagnoses Diagnosis Missed menses documented in this encounter
--- OUTSIDE RECORDS SUMMARY | 2025-06-18 14:09 | XMS_ITS | Encounter Summary ---
Author Organization [facility] Address [address] [place] [address] Care Team Providers Care Film Processing Shift Supervisor Name Role Phone Unavailable Primary Care Provider Unavailabl e Encounter Details Date Type Department Care Team (Late Contact Info) Description 05/19/2025 Abstract [facility] [address] [facility] [place] [address] Anne-Marie Mcleod MA Social History Tobacco [...] Ancillary Procedure [facility] [address] [place] [address] 06/23/2025 3:00 PM EDT Routine [facility] [address] [place] [address] Violet Woody, SENIOR PLANNING MANAGER [address] [place] [address] documented as of this encounter Visit Diagnoses Not on filedocumented in this encounter
--- OUTSIDE RECORDS SUMMARY | 2025-06-18 14:09 | XMS_ITS | Encounter Summary ---
Author Organization [facility] Address [address] [place] [address] Care Team Providers Care Air/Ocean Export Clerk Name Role Phone Unavailable Primary Care Provider Unavailabl e Encounter Details Date Type Department Care Team (Late Contact Info) Description 01/01/2025 Abstract [facility] [address] [facility] [place] [address] Yousif Aparicio DO [address] [facility] [address] [place], [id number] Social History Tobacco Use Types Packs/Day Years [...] PM EDT Ancillary Procedure [facility] [address] [facility] [place] [address] 06/23/2025 3:00 PM EDT Routine [facility] [address] [facility] [place] [address] Violet Woody, FEATURES REPORTER [address] [facility] [place] [address] documented as of this encounter Visit Diagnoses Not on filedocumented in this encounter
--- OUTSIDE RECORDS SUMMARY | 2025-06-18 14:09 | XMS_ITS ---
Author Organization [facility] Address [address] [place] [address] Care Team Providers Care Senior Piping Designer Name Role Phone Unavailable Primary Care Provider Unavailabl e Comprehensive Maternal Care ([facility]) Status:Enrolled (Active) Start date:01/19/2025 Enrollment date:01/20/2025 Enrollment reason:Identified by Health Plan Case Team Name Relationship Phone Jody Gentile LPN(Responsible Staff) Licensed [facility] Nurse [phone] Continued Care and Services Coordination
--- OUTSIDE RECORDS SUMMARY | 2025-06-18 14:09 | XMS_ITS | Encounter Summary ---
Author Organization [facility] Address [address] [place] [address] Care Team Providers Care Senior Product Manager Name Role Phone Unavailable Primary Care Provider Unavailabl e Encounter Details Date Type Department Care Team (Late Contact Info) Description 10/30/2023 Abstract [facility] GIANG [address] [facility] [address] Adrianna Rushing LPN [address] [facility] Zoran RUELAS [facility]11 Social History Tobacco Use Types Packs/Day Years [...] PM EDT Ancillary Procedure CHARBEL GIANG [address] [facility] [address] 06/23/2025 3:00 PM EDT Routine [facility]EL GIANG [address] [facility] [address] Violet Woody, SENIOR LITIGATION PAR[place]GAL [address] [facility] [place] [address] documented as of this encounter Visit Diagnoses Not on filedocumented in this encounter
--- OUTSIDE RECORDS SUMMARY | 2025-06-18 14:09 | XMS_ITS | Encounter Summary ---
Author Organization [facility] Address [address] [place] [address] Care Team Providers Care Branch Operations Specialist Name Role Phone Unavailable Primary Care Provider Unavailabl e Encounter Details Date Type Department Care Team (Late Contact Info) Description 10/31/2023 Abstract [facility] [address] [place] [address] Martha Rapp CNM [address] [place], [place] [phone] Social History Tobacco Use Types Packs/Day Years [...] PM EDT Ancillary Procedure [facility] GI[facility] [address] [place] [address] 06/23/2025 3:00 PM EDT Routine [facility] [address] [place] [address] Violet Woody, COMPANION [address] [place] [address] documented as of this encounter Visit Diagnoses Not on filedocumented in this encounter
--- OUTSIDE RECORDS SUMMARY | 2025-06-18 14:09 | XMS_ITS ---
Author Organization [facility] Source Produ ction (ClinicalSummary Clone) Address Unknown Care Team Providers Care Base Loader Name Role Phone Unavailable Primary Care Physician Unavailab le Results * [UNITY] ANEUPLOIDY NIPT Performed by: [employer] Component Value Range Date Fraction 7.4% 01/13/2025 06 :02 am UT Rh(D) NIPT RhD DETECTED 01/13/2025 06:0 2 am UTC Sex Chromosome Aneuploidy NOT DETECTED 06:02 am UTC Monosomy X LOW RISK <1 in 10,000 2024 06:02 am UTC Trisomy 13 LOW RISK <1 in 10,000 2024 06:02 am UTC Trisomy 18 LOW RISK <1 in 10,000 2024 06:02 am UTC Trisomy 21 LOW RISK <1 in 10,000 2024 06:02 am UTC Sex MALE 01/13/2025 06:0 2 am UTC Gestation CAMARGO 01/14/20 06:02 am UTC For detailed report, see PDF See PDF 01/13/2025 06:02 am UTC 01/13/2025 06:0 2 am UT Social History Observation Value Start Date End Date
--- OUTSIDE RECORDS SUMMARY | 2025-06-18 14:09 | XMS_ITS | Encounter Summary ---
Author Organization [facility] Address [address] [facility] [place] [address] Care Team Providers Care Branch Director Name Role Phone Unavailable Primary Care Provider Unavailabl e Encounter Details Date Type Department Care Team (Late Contact Info) Description 09/14/2023 Clinisync Result Encounter N[facility]S External Department Unsolicited Jody Hall PA [address] [facility] [address] [place], [facility] Social History Tobacco Use Types Packs/Day [...] Procedure [facility] [address] [facility] [place] [address] 06/23/2025 3:00 PM EDT Routine [facility] lAvaro OBGYN [address] [facility] [place] [address] Violet Woody, GROUNDS PERSON [address] [facility] [place] [address] documented as of this encounter Procedures Procedure Name Priority Date/Time Associated Diagnosis Comments US OB BPP W NON-STRESS 09/14/2023 9:06 PM EST documented in this encounter Results * US OB BPP W NON-STRESS (09/14/2023 9:06 PM EST) Anatomical Region Laterality Modality Other 09/14/2023 9:06 PM EST Narrative 09/14/2023 9:09 [place] [address] Ultrasound Report Signed Patient: NOE ERVIN MR#: [id number] : 1995 Acct:[id number] Age/Sex: 28 / F ADM Date: 09/14/23 Loc: US Attending Dr: Jody Hall Ordering Physician: Jody Hall Date of Service: 09/14/23 Procedure(s): US OB BPP w non-stress Accession Number(s): [id number] cc: Jody Hall; FAMILY,HEALTH [place] [id number] Patient Name: NOE ERVIN MRN: [id number] date: 1995 Sex: F Assigned Patient Location: US Current Patient Location: Accession/Order Number: [id number] Exam Date: 09/14/2023 17:40 Report Date: 09/14/2023 [...] Signed By: 09/14/23 2109 DD/ 05 TD/TT: Visual Merchandise Manager: Procedure Note Radiology, Radiologist, MD - 11/21/[address] [address] Ultrasound Report Signed Patient: NOE ERVIN MMR#: [id number] : 1995Acct:[id number] Age/Sex: 28 / FADM Date: 09/14/23 Loc: US Attending Dr: Jody Hall Ordering Physician: Jody Hall Date of Service: 09/14/23 Procedure(s): US OB BPP w non-stress Accession Number(s): [id number] cc: Jody Hall; FAMILY,HEALTH [facility] The [address] [address] Patient Name: NOE ERVIN MRN: [id number] date: 1995 Sex: F Assigned Patient Location: US Current Patient Location: Accession/Order Number: [id number] Exam Date: 09/14/2023 17:40 Report Date: 09/14/2023 [...] Rodriguez M.D. Signed By:09/14/232108 DD/ 05 TD/TT: Visual Merchandise Manager: us Jody [facility] Final Result documented in this encounter Visit Diagnoses Not on filedocumented in this encounter
--- OUTSIDE RECORDS SUMMARY | 2025-06-18 14:09 | XMS_ITS | Encounter Summary ---
Author Organization [facility] Address [address] [facility] [place] [address] Care Team Providers Care Airplane Pilot Supervisor Name Role Phone Unavailable Primary Care Provider Unavailabl e Encounter Details Date Type Department Care Team (Late st Contact Info) Description 06/11/2025 Patient Outreach [facility] [address] [place] [address] Jody Gentile LPN [address] [place] [address] Social History Tobacco Use Types Packs/Day Years Used Date Smoking Tobacco: Never Smokeless Tobacco: Never Alcohol Use Standard Drinks/Week Comments Never 0 (1 standard drink = 0.6 oz pur e alcohol) PHQ-2 Answer Date Recorded Patient Health Questionnaire-2 Score 0 06/11/2025 Estimated Date of Delivery Comme nts Yes [...] pleasure in doing things Not at all 06/11/2025 2:47 PM EDT Jody Gentile LPN Feeling down, depressed, or hopeless Not at all 06/11/2025 2:47 PM EDT Jody Gentile LPN Patient Health Questionnaire -2 Score 0 06/11/2025 2:47 PM EDT Jody Gentile LPN documented as of this encounter Progress Notes * Jody Gentile LPN - 06/11/2025 2:47 PM EDT Monthly Outreach. Call to pt. Pt reports she feels baby moving frequently. Appetite and sleep are adequate. Bowels ar regular. Pt denies any depression or difficulty coping at this time. Pt voices how good she feels since receiving iron infusion. Pt denies any questions, concerns or needs today. Meds reviewed. Next OB OV 06/23/25. documented in this encounter Plan of Treatment Upcoming Encounters Date Type Department Care Team (Late st Contact Info) Description 06/23/2025 2:30 PM EDT Ancillary Procedure [facility] Alvaro GIANG [address] [place] [address] 06/23/2025 3:00 PM EDT Routine [facility] Alvaro GIANG [address] [place] [address] Violet Woody, TELMA [address] [place] [address] documented as of this encounter Visit Diagnoses Not on filedocumented in this encounter
--- OUTSIDE RECORDS SUMMARY | 2025-06-18 14:09 | XMS_ITS | Clinical Summary ---
Author Organization [facility] Address [address] [place], [place] [id number] Care Team Providers Care Shoe Maker Name Role Phone Rodo Lincoln MD Primary Care Provider [phone] Allergies No known active allergies Medications gabapentin [...] Screening Completed 04/26/2020 , 11/20/2019, 06/19/2019 Insurance [facility] MEDICAID Care Teams Shoe Maker Relationship Specialty Start Date End Date Rodo Lincoln MD [address] [place] [address] PCP - General Family Medicine 11/08/21
--- OUTSIDE RECORDS SUMMARY | 2025-06-18 14:09 | XMS_ITS | Encounter Summary ---
Author Organization [facility] Address [address] [place] [address] Care Team Providers Care Sap Technical Architect Name Role Phone Unavailable Primary Care Provider Unavailabl e Encounter Details Date Type Department Care Team (Late st Contact Info) Description 05/14/2025 Abstract [facility] [place] [facility] [address] [facility] [place] [phone] Yousif Aparicio DO [address] [facility] [place] [address] Social History Tobacco Use Types Packs/Day Years [...] 0 05/14/2025 1:06 PM EDT Gentile, Jody, PRODUCTION EXPERT documented as of this encounter Plan of Treatment Upcoming Encounters Date Type Department Care Team (Late st Contact Info) Description 06/23/2025 2:30 PM EDT Ancillary Procedure [facility] Alvaro GIANG [address] [place] [address] 06/23/2025 3:00 PM EDT Routine NOMLorrie GIANG [address] [facility] [place] [address] Violet Woody, SENIOR MECHANICAL DESIGNER [address] [facility] [place] [address] documented as of this encounter Visit Diagnoses Not on filedocumented in this encounter
--- OUTSIDE RECORDS SUMMARY | 2025-06-18 14:09 | XMS_ITS | Encounter Summary ---
Author Organization [facility] Address [address] [place] [address] Care Team Providers Care Advertising Rep Name Role Phone Unavailable Primary Care Provider Unavailabl e Encounter Details Date Type Department Care Team (Late Contact Info) Description 06/08/2025 Bamboo flowsheet CHARBEL GIANG [address] [place] [address] Yousif Aparicio DO [address] [facility] [address] [place], [facility]11 Social History Tobacco Use Types [...] Ancillary Procedure CHARBEL GIANG [address] [place] [address] 06/23/2025 3:00 PM EDT Routine NOMLorrie GIANG [address] [place] [address] Violet Woody, BRIDGE CARPENTER [address] [place] [address] [place] [address] documented as of this encounter Visit Diagnoses Not on filedocumented in this encounter
--- OUTSIDE RECORDS SUMMARY | 2025-06-18 14:09 | XMS_ITS | Encounter Summary ---
Author Organization [facility] Address [address] [facility] [place] [address] Care Team Providers Care Security Systems Engineer Name Role Phone Unavailable Primary Care Provider Unavailabl e Encounter Details Date Type Department Care Team ([facility] Contact Info) Description 06/01/2023 Abstract CHARBEL GIANG [address] [facility] [place] [address] Jody Kimble PA [address] [facility] [address] [place], [facility] Social History Tobacco Use Types Packs/Day Years [...] Upcoming Encounters Date Type Department Care Team ([facility] Contact Info) Description 06/23/2025 2:30 PM EDT Ancillary Procedure CHARBEL GIANG [address] [place], [place] [address] [address] 06/23/2025 3:00 PM EDT Routine CHARBEL GIANG [address] [place], [place] [address] [address] Violet Woody, DROSOPHERE OPERATOR [address] [facility] [place] [address] documented as of this encounter Visit Diagnoses Not on filedocumented in this encounter
--- OUTSIDE RECORDS SUMMARY | 2025-06-18 14:09 | XMS_ITS | Encounter Summary ---
Author Organization [facility] Address [address] [place] [address] Care Team Providers Care Hand Model Name Role Phone Unavailable Primary Care Provider Unavailabl e Encounter Details Date Type Department Care Team (Late st Contact Info) Description 05/14/2025 Abstract [facility] [address] [facility] [place] [phone] Yousif Aparicio DO [address] [facility] [place] [address] Social History Tobacco Use Types Packs/Day Years [...] 0 05/14/2025 1:06 PM EDT Gentile, Jody, FORENSIC MEDICAL EXAMINER documented as of this encounter Plan of Treatment Upcoming Encounters Date Type Department Care Team (Late st Contact Info) Description 06/23/2025 2:30 PM EDT Ancillary Procedure [facility] Alvaro GIANG [address] [place] [address] 06/23/2025 3:00 PM EDT Routine NOMLorrie GIANG [address] [facility] [place] [address] Violet Woody, LOAN DOCUMENTATION SPECIALIST [address] [facility] [place] [address] documented as of this encounter Visit Diagnoses Not on filedocumented in this encounter
--- OUTSIDE RECORDS SUMMARY | 2025-06-18 14:09 | XMS_ITS | Encounter Summary ---
Author Organization [facility] Address [address] [place] [address] Care Team Providers Care Admeasurer Name Role Phone Unavailable Primary Care Provider Unavailabl e Encounter Details Date Type Department Care Team (Late Contact Info) Description 11/02/2023 Abstract CHARBEL GIANG [address] [facility] [place] [address] Adrianna Rushing LPN [address] [facility] Zoran RUELAS [facility]11 Social History Tobacco Use Types Packs/Day [...] PM EDT Ancillary Procedure CHARBEL GIANG [address] [facility] [place] [address] 06/23/2025 3:00 PM EDT Routine CHARBEL GIANG [address] [facility] [place] [address] Violet Woody, RATING SPECIALIST [address] [facility] [place] [address] documented as of this encounter Visit Diagnoses Not on filedocumented in this encounter
--- OUTSIDE RECORDS SUMMARY | 2025-06-18 14:09 | XMS_ITS | Clinical Summary ---
Author Organization [facility] Address [address] [place] [address] Care Team Providers Care Stock Chaser Name Role Phone Unavailable Primary Care Provider [...] supervision of normal first in first trimester ([facility]) Take 1 tablet by mouth Daily 30 [...] 10 MG tabletIndications:N ausea and vomiting in ([facility]) Take 1 tablet (10 mg) by mouth [...] Encounters Date Type Department Care Team Description 06/11/2025 Patient Outreach [facility] [address] [place] [address] Jody Gentile LPN 06/08/2025 11:10 AM EDT Routine [facility] Alvaro GIANG [address] [place] [address] [place] [address] Yousif Aparicio DO Anemia, unspecified type (Primary Dx); Third trimester ([facility]); 33 weeks gestation of ([facility]); Gestational diabetes mellitus (GDM) in third trimester, gestational diabetes method of control unspecified ([facility]); H/O pre-eclampsia in prior , currently ([facility]); H/O miscarriage, currently ([facility]); DANICA (amniotic fluid index) borderline low 06/08/2025 Bamboo flowsheet [facility] [address] [place] [address] [place] [address] Yousif Aparicio DO 05/21/2025 Clinisync Result Encounter NOMS External Department Unsolicited Violet Woody NP 05/20/2025 9:50 AM EDT Routine [facility] Alvaro GIANG [address] [place] [address] [place] [address] Violet Woody NP Diarrhea, unspecified type (Primary Dx); Third trimester ([facility]); 31 weeks gestation of ([facility]); Nausea and vomiting in ([facility]) 05/20/2025 9:30 AM EDT Ancillary Procedure [facility] [place] [facility] [address] [place] [address] size inconsistent with dates ([facility]) 05/19/2025 Abstract [facility] [address] [place] [address] Anne-Marie Mcleod MA 05/14/2025 Abstract [facility] [place] [facility] [address] [facility] [place] [address] Yousif Aparicio, 05/14/2025 Abstract [facility] [address] [facility] [place] [address] Yousif Aparicio, 05/14/2025 Patient Outreach [facility] [address] [place] [address] Jody Gentile LPN 05/12/2025 Abstract [facility] [place] [facility] [address] [place] [address] Yosuif Aparicio, 05/08/2025 Clinisync Result Encounter NOMS External Department Unsolicited Violet Woody NP 05/06/2025 11:30 AM EDT Routine [facility] [address] [place] [address] Yousif Aparicio, DO Third trimester ([facility]); 29 weeks gestation of ([facility]); size inconsistent with dates ([facility]); Low iron; Dizziness; Nausea 05/06/2025 Bamboo flowsheet [facility] [place] [facility] [address] [facility] [place] [address] Yousif Aparicio, 04/29/2025 Refill [facility] [place] [facility] [address] [facility] [place] [address] Marva Wagner LPN Nausea and vomiting, unspecified vomiting type 04/17/2025 Patient Outreach [facility] [address] [place] [phone] Jody Gentile LPN 04/09/2025 9:50 AM EDT Routine NOMLorrie GIANG [address] [place] [address] [place] [address] Jody Kimble PA Second trimester ([facility]); 25 weeks gestation of ([facility]) 04/09/2025 Bamboo flowsheet NOMLorrie GIANG [address] [place] [address] [place] [address] Jody Kimble PA 04/01/2025 1:30 PM EDT Ancillary Procedure [facility] GIANG [address] [place] [address] [place] [address] 03/19/2025 Orders Only [facility] Alvaro GIANG [address] [place] [address] [place] [address] Anne-Marie Mcleod MA 03/18/2025 Patient Outreach [facility] [address] [place] [place] [address] Jody Gentile LPN from Last 3 Months [...] EDT Ancillary Procedure [facility] [address] [facility] [place] [address] 06/23/2025 3:00 PM EDT Routine [facility] [address] [facility] [place] [place] [address] Violet Woody, DESULPHURING OPERATOR [address] [facility] [place] [address] Health Maintenance Due Date Last Done Comments HPV/Cotest 01/12/2024 Influenza Vaccine (#1) 2025 Cervical Cancer Screening 03/11/2028 Pap Smear 03/11/2028 03/11/2025, 06/20/2023 Procedures Procedure Name Priority Date/Time Associated Diagnosis Comments OVA AND PARASITE SCREEN Routine 06/08/2025 1:44 PM EDT Diarrhea, unspecified type STOOL CULTURE Routine 06/08/2025 1:44 PM EDT Diarrhea, unspecified type POCT URINALYSIS DIPSTICK Routine 06/08/2025 11:32 AM EDT Third trimester ([facility]) OVA + PARASITE EXAM Routine 05/21/2025 8 :55 AM EDT POCT URINALYSIS DIPSTICK Routine 05/20/2025 10:19 AM EDT Third trimester ([facility]) 31 weeks gestation of ([facility]) US OB FOLLOW UP TRANSABDOMINAL APPROACH Routine 05/20/2025 10:01 AM EDT size inconsistent with dates ([facility]) TRANSFERRIN Routine 05/08/2025 9:39 AM EDT [facility] FERRITIN Routine 05/08/2025 9:39 AM EDT ALL CBC WITH AUTO DIFF Routine 9:39 AM EDT GLUCOSE 1 HOUR Routine 05/08/2025 9:39 AM EDT POCT URINALYSIS DIPSTICK Routine 05/06/2025 11:51 AM EDT Third trimester ([facility]) POCT URINALYSIS DIPSTICK Routine 04/09/2025 10:07 AM EDT Second trimester ([facility]) US OB 14+ WEEKS ANATOMY SCAN Routine 04/01/2025 2:18 PM EDT Screening, , for anatomic survey ([facility]) PAP SMEAR Routine 03/11/2025 12:00 AM EDT from Last 3 Months or Most Recently Relevant to Health Maintenance Results * Ova and parasite screen (06/08/2025 1:44 PM EDT) Stool Rectal contents / Unknown Violet Woody NP LAB MICROBIOLOGY - GENERAL OR DERABLES Final Result Performing Organization Address City/[facility]/ZIP Co de Phone Number EXTERNAL LAB * Stool culture (06/08/2025 1:44 PM EDT) Stool Rectal contents / Unknown Violet Woody NP LAB MICROBIOLOGY - GENERAL OR DERABLES Final Result [facility] * POCT urinalysis dipstick manually resulted (06/08/2025 11:32 AM EDT) Only the most recent of4 [...] Positive Urine 06/08/2025 11:3 2 AM EDT Yousif Aparicio DO POINT OF CARE TEST ENTER/EDIT OR DERABLES Final Result * OVA + PARASITE EXAM (05/21/2025 8:55 AM EDT) Pathologist [facility] OVA + PARASITE EXAM Final report . [facility] Comment: These results were obtained using wet preparation(s) and trichrome stained smear. This test does not include testing for Cryptosporidium parvum, Cyclospora, or Microsporidia. RESULT 1 Comment . [facility] Comment: No ova, cysts, or parasites seen. One negative specimen does not rule out the possibility of a parasitic infection. Performed at: [address] [id number] [employer] Salesperson: Justice Flor PhD, Phone: [phone] 05/21/2025 8:55 AM EDT 05/21/2025 1:53 PM EDT Narrative MIGUEL - 05/26/2025 5:08 PM EDT STOOL Violet Woody DESULPHURING OPERATOR LAB BLOOD ORDERABLES Final Re sult [facility] * US OB follow up transabdominal approach [...] 05/08/2025 10:01 AM EDT us Violet Woody DESULPHURING OPERATOR LAB BLOOD ORDERABLES Final Re sult Performing Organization Address City/[facility] Co de Phone Number [facility] * (ABNORMAL) TRANSFERRIN (05/08/2025 9:39 AM EDT) TRANSFERRIN 435(A) 192 - 364 mg/dL [facility] Comment: Performed at: - [facility] [id number] [employer] Salesperson: Justice Flor PhD, Phone: [phone] 05/08/2025 9:39 AM EDT 05/08/2025 9:41 AM EDT Narrative [facility] - 05/09/2025 4:07 AM EDT us Yousif Aparicio DO LAB BLOOD ORDERABLES Final Resul t Performing Organization Address City/[facility]/ZIP Co de Phone Number [facility] * (ABNORMAL) [facility] FERRITIN (05/08/2025 9:39 AM EDT) FERRITIN 2.0(L) 8.0 - 252.0 ng/mL [facility] 05/08/2025 9:39 AM EDT 05/08/2025 9:41 AM EDT Narrative [facility] - 05/08/2025 11:07 AM EDT Yousif Aparicio DO CLINIS[facility]NC Final Result [facility] TB * (ABNORMAL) ALL CBC WITH AUTO DIFF (05/08/2025 9:39 AM EDT) Pathologist [facility] TB WBC 9.0 4.0 - [...] AM EDT 05/08/2025 9:41 AM EDT Narrative MIGUEL - 05/08/2025 10:04 AM EDT Violet Woody NP CLINISYNM Final Result [facility] * US OB 14+ weeks anatomy scan [...] OB US PROCEDURES Final Resul t * Pap Smear (03/11/2025 12:00 AM EDT) Swab Cervical swab / Unknown us Yousif Markus DO LAB CYTOLOGY ORDERABLES Final Re sult EXTERNAL LAB from Last 3 Months or Most Recently Relevant to Health Maintenance Insurance [employer]
--- OUTSIDE RECORDS SUMMARY | 2025-06-18 14:09 | XMS_ITS | Encounter Summary ---
Author Organization [facility] tem Address [id number] [address] [place] [address] Care Team Providers Care Gristmill Operator Name Role Phone Prisca Dave GRAIN SAMPLER-SUPERVISOR COMMISSARY [employer]ODUCTION Primary Care Provider Reason for Referral * Diagnostic Imaging (Routine) - Closed Specialty Diagnoses / Procedures Referred By Contevaristo t Referred To Contact Maternal and Medicine Diagnoses History of pre-eclampsia in prior , currently Substance abuse affecting , antepartum ([facility]) Obesity affecting in first trimester History of gestational diabetes in prior , currently Recurrent major depressive disorder, in partial remission Former smoker History of delivery Procedures [facility] with or without consult Johnathon Benedict MD [address] [place] [address] 03/17/2024 [place] [address] Phone: tel: fax: Maternal- Medicine at [address] [address] Phone: tel: fax: Referral ID Status Reason Start Date Expiration Date Visits Re quested Visits Authorized [id number] Closed 05/31/2021 05/31/2022 1 1 Encounter Details Date Type Department Care Team (Late st Contact Info) Description 05/31/2021 Orders Only Maternal- Medicine at [address] [phone] Johnathon Benedict MD [address] Dept of floating [place] [address] History of pre-eclampsia in prior , currently (Primary Dx); Substance abuse affecting , antepartum; Obesity affecting in first trimester; History of gestational diabetes in prior , currently ; Recurrent major depressive disorder, in partial remission ([facility]); Former smoker; History of delivery Social History [...] documented as of this encounter Results * [facility] COMPREHENSIVE ANATOMIC SURVEY (07/26/2021 11:35 AM EST) [...] Final 07/26/2021 11:45) PATIENT INFO: ID #: [id number] : [birth year] (26 yrs)(F) Name: NOE PRESSLEY Visit Date: 07/26/2021 11:30 SOCHKO PERFORMED BY: Performed By: Sailaja Donaldson RDMS Attending: Elias Tamayo MD Referred By: Yousif Betancur. Address: [address] [place] [address] [place] [address] Location: [facility]aternal Medicine [place] SERVICE(S) PROVIDED: Comprehensive Anatomic Survey 94484 OB Transvaginal 20222 INDICATIONS: Suspected or known abnormality in O35.9XX0 [...] Arch: Appears normal SVC: Appears Normal Cardiac [place]: Appears normal Diaphragm: Appears normal 3 Vessel [...] Final 07/26/2021 11:45) PATIENT INFO: ID #: [id number] : [birth year] (26 yrs)(F) Name: NOE PRESSLEY Visit Date: 07/26/2021 11:30 SOCHKO PERFORMED BY: Performed By: Sailaja Donaldson RDMS Attending: Elias Tamayo MD Referred By: Yousif Aparicio DO Ref. Address: [address] [place] [address] [place] [address] Location: [facility] [place] SERVICE(S) PROVIDED: Comprehensive Anatomic Survey 92198 OB Transvaginal 81080 INDICATIONS: Suspected or known abnormality in O35.9XX0 [...] Arch: Appears normal SVC: Appears Normal Cardiac [place]: Appears normal Diaphragm: Appears normal 3 Vessel [...] obstetric history Substance abuse affecting , antepartum ([facility]) Obesity affecting in first trimester History of gestational diabetes in prior , currently with other poor obstetric history Recurrent major depressive disorder, in partial remission Former smoker Personal history of tobacco use, presenting hazards to health History of delivery History of pre-eclampsia in prior , currently with other poor obstetric history Substance abuse affecting , antepartum ([facility]) Obesity affecting in first trimester History of [...] documented as of this encounter Care Teams Gristmill Operator Relationship Specialty Start Date End Date Prisca Dave APRN-MARIANO [address] [place] [address] PCP - General Family Medicine 04/24/23 documented as of this encounter
--- OUTSIDE RECORDS SUMMARY | 2025-06-18 14:09 | XMS_ITS | Encounter Summary ---
Author Organization [facility] Address [address] [place] [address] Care Team Providers Care Votator Machine Operator Name Role Phone Unavailable Primary Care Provider Unavailabl e Encounter Details Date Type Department Care Team (Late st Contact Info) Description 05/12/2025 Abstract [facility] [address] [facility] [place] [phone] Yousif Aparicio DO [address] [facility] [place] [address] Social History Tobacco Use Types Packs/Day Years [...] 0 05/14/2025 1:06 PM EDT Gentile, Jody, RACKET STRINGER documented as of this encounter Plan of Treatment Upcoming Encounters Date Type Department Care Team (Late st Contact Info) Description 06/23/2025 2:30 PM EDT Ancillary Procedure [facility] [address] [place] [address] 06/23/2025 3:00 PM EDT Routine [facility] [address] [facility] [place] [address] Violet Woody, STATEMENT PROCESSOR [address] [facility] [place] [address] documented as of this encounter Visit Diagnoses Not on filedocumented in this encounter
--- OUTSIDE RECORDS SUMMARY | 2025-06-18 14:09 | XMS_ITS | Encounter Summary ---
Author Organization [facility] Address [address] [place] [address] Care Team Providers Care User Experience Designer Name Role Phone Unavailable Primary Care Provider Unavailabl e Encounter Details Date Type Department Care Team (Late Contact Info) Description 01/01/2025 Abstract [facility] [address] [facility] [place] [address] Yousif Aparicio DO [address] [facility] [address] [place], [facility] Social History Tobacco Use Types Packs/Day [...] PM EDT Ancillary Procedure [facility] [address] [facility] [place] [address] 06/23/2025 3:00 PM EDT Routine [facility] [address] [facility] [place] [address] Violet Woody, MAT MACHINE TENDER [address] [facility] [place] [address] documented as of this encounter Visit Diagnoses Not on filedocumented in this encounter
--- OUTSIDE RECORDS SUMMARY | 2025-06-18 14:09 | XMS_ITS | Encounter Summary ---
Author Organization [facility] Address [address] [place] [address] Care Team Providers Care Mva Operator Name Role Phone Unavailable Primary Care Provider Unavailabl e Encounter Details Date Type Department Care Team (Late Contact Info) Description 09/24/2023 Clinisync Result Encounter [facility] External Department Unsolicited Jody Hall PA [address] [facility] [address] [place], [facility] Social History Tobacco Use Types [...] EDT Ancillary Procedure [facility] [address] [facility] [address] [place] [phone] 06/23/2025 3:00 PM EDT Routine [facility] [address] [facility] [address] [place] [address] Violet Woody, JOINTER SUBMARINE CABLE [address] [facility] [place] [phone] documented as of this encounter Procedures Procedure Name Priority Date/Time Associated Diagnosis Comments US OB BPP W NON-STRESS 09/24/2023 7:10 AM EST documented in this encounter Results * US OB BPP W NON-STRESS (09/24/2023 7:10 AM EST) Anatomical Region Laterality Modality Other 09/24/2023 7:10 AM EST Narrative 09/24/2023 7:12 [place] [address] Ultrasound Report Signed Patient: NOE ERVIN MR#: [id number] : 1995 Acct:[id number] Age/Sex: 28 / F ADM Date: 09/21/23 Loc: US Attending Dr: Jody Hall Ordering Physician: Jody Hall Date of Service: 09/21/23 Procedure(s): US OB BPP w non-stress Accession Number(s): [id number] cc: Jody Hall; FAMILY,[facility]ALTH [facility] [place] [id number] Patient Name: NOE ERVIN MRN: [id number] date: 1995 Sex: F Assigned Patient Location: [facility] Current Patient Location: Accession/Order Number: [id number] Exam Date: 09/21/2023 17:15 Report Date: 09/24/2023 [...] M.D. Signed By: 09/24/23711 DD/ 9 TD/TT: Chief Minister: Procedure Note Radiology, Radiologist, - 11/21/2023 [facility] [place] [id number] Ultrasound Report Signed Patient: NOE ERVIN MMR#: [id number] : 1995Acct:[id number] Age/Sex: 28 / FADM Date: 09/21/23 Loc: US Attending Dr: Jody Hall Ordering Physician: Jody Hall Date of Service: 09/21/23 Procedure(s): US OB BPP w non-stress Accession Number(s): [id number] cc: Jody Hall; FAMILY,[facility] [place] [id number] Patient Name: NOE ERVIN MRN: [id number] date: 1995 Sex: F Assigned Patient Location: [facility] Current Patient Location: Accession/Order Number: [id number] Exam Date: 09/21/2023 17:15 Report Date: 09/24/2023 [...] Baugh M.D. Signed By:09/24/23711 DD/ 9 TD/TT: Chief Minister: us [facility] Final Result documented in this encounter Visit Diagnoses Not on filedocumented in this encounter
[2025-06-18 15:05] LABS: Hematocrit 32.3 % (36.0-48.0); Hemoglobin 10.5 g/dL (12.0-16.0); Immature Granulocytes Abs Auto 0.05 10^3/uL (0.00-0.03); Immature Granulocytes Pct Auto 0.6 % (0.0-0.5); Lymphocytes Absolute Auto 1.3 10^3/uL (1.2-3.8); Mean Corpuscular HGB Conc 32.5 g/dL (29.9-35.2); Mean Corpuscular Hemoglobin 25.1 pg (26.7-34.0); Mean Corpuscular Volume 77.1 fL (81.0-99.0); Platelet Count 188 10^3/uL (150-450); Red Blood Count 4.19 10^6/uL (4.20-5.40); White Blood Count 8.9 10^3/uL (4.0-11.0)
--- OUTSIDE RECORDS SUMMARY | 2025-06-18 19:35 | XMS_ITS | CCD ---
Author Organization [facility] Care Team Providers Care Assistant Coach Name Role Phone SPICER, ANGELO Unavailable Unavailable SPICER, ANGELO Unavailable Unavailable ROCHELLE ALVARADO Unavailable Unavailable Rochelle Alvarado Primary Care Provider Lima Cornell Attending Unavailab Rochelle Quiñones Primary Care Provider [phone] Unavailable Primary Care Provider UnavailRodo Carson Primary Care Provider [phone] FAMILY, HEALTH SERVICES Primary Care Unavaila ble [...] MARKUS ., DR MENENDEZ Consulting Unavailable FAMILY, [facility] Primary Care Unavaila ble MARKUS ., DR MENENDEZ Attending Unavailable MARKUS ., DR MENENDEZ Admitting Unavailable NGOC KWONG Consulting Unavailable RUSLAN LAM Consulting Unavailable [facility], [facility] Primary Care Unavaila ble MARKUS ., DR MENENDEZ Consulting Unavailable MARKUS ., DR MENENDEZ Attending Unavailable MARKUS ., DR MENENDEZ Admitting Unavailable ZIEBER, DR CHRISTINE Benites Consulting Unavailable MARKUS ., DR MENENDEZ Consulting Unavailable [facility], [facility] Primary Care Unavaila ble MARKUS ., DR MENENDEZ Attending Unavailable MARKUS ., DR MENENDEZ Admitting Unavailable MARKUS ., DR MENENDEZ Consulting Unavailable DESTINY KADI R Primary Care Unavailable MARKUS ., DR MENENDEZ Attending Unavailable MARKUS ., DR MENENDEZ Admitting Unavailable ZIEBER, DR CHRISTINE Benites Consulting Unavailable Unavailable Primary Care Provider UnavailMD Rochelle Carpio Primary Care Provider [phone] Yousif Aparicio Attending Provider ANTHONY PABON Referring Unavailable ROCHELLE ALVARADO Primary Care Unavailable NONE, XXXX Primary Care Physician Unavailab Jayjay Little Attending Unavailable Haydee Gaytan Attending Unavailable Rochelle Alvarado MD Primary Care Provider [phone] Dane Erwin MD Attending Provider [phone] NO FAMILY, PHYSICIAN Primary Care Provider Unava [...] Unavailab ran FABIAN LOMAS Primary Care Unavailable MARKUS, YOUSIF Attending Unavailable MARKUS, YOUSIF Attending Unavailable MARKUS, YOUSIF Referring Unavailable JODY KIMBLE Attending Unavailable MARKUS, YOUSIF Attending Unavailable MARKUS, YOUSIF Referring Unavailable MUNDO WOODY Attending Unavailable MARKUS, YOUSIF Attending Unavailable Allergies Allergy Classification Reported Allergen(s) Allergy Type Date of Onset Reaction(s) Facility (1 source) No Known Medication Allergies; Translations: [No Known Medication Allergies] Propensity to adverse reactions to drug (disorder) [facility] Repository (20 sources) buPROPion Drug Allergy 5 [facility] [...] 2024 12:00am lamoTRIgine 25 mg oral tablet (20 sources) Mood Stabilizer, Anti-epileptic Agent Start: 10-21-19 take 1 tablet by mouth once daily Lamotrigine 25 mg Tablet Active 25 MG PO Daily October 21, 2024 12:00am levETIRAcetam 500 mg [...] 09-22-2019 take 1 capsule by mo [facility] once daily LINZESS 72 MCG CAPS capsule TAKE 1 CAPSULE BY MOUTH EVERY DAY 0 09/22/2019 Active metoclopramide 10 mg oral tablet (6 sources) Dopamine-2 Receptor Antagonist Start: 05-20-2025 End: 06-19-2025 metoclopramide (Reglan) 10 MG tablet Indications: Nausea and vomiting in (HHS-HCC) Take 1 tablet (10 mg) by mouth [...] polysaccharide iron complex 391 mg oral capsule (12 sources) Start: 05-06-20 End: 12-03-19 take 1 [...] Vit-Fe Fumarate-FA ( Vitamins) 28-0.8 MG tablet (20 sources) Start: 01-01-2025 End: 01-01-2026 take 1 tablet by mouth once daily Vit-Fe Fumarate-FA ( Vitamins) 28-0.8 MG tablet Indications: Encounter for supervision of normal first in first trimester ([facility]) Take 1 tablet by mouth Daily 30 tablet 11 01/01/2025 01/01/2026 Active Start: 01-01-2025 End: 01-01-2026 take 1 tablet by mouth once daily Vit-Fe Fumarate-FA ( Vitamins) 28-0.8 MG tablet Indications: Encounter for supervision of normal first in first trimester Take 1 tablet by mouth Daily 30 tablet 11 01/01/2025 01/01/2026 Active promethazine hydrochloride 12.5 mg oral tablet (9 sources) Phenothiazine Start: 05-06-2025 End: 08-04-2025 take [...] Start: 05-21-2019 take 1 tablet by naty th twice daily propranolol (INDERAL) 10 MG tablet [...] 04, 2017 12:00am START WHEN DISCHARGED FROM [facility] Start: 11-04-2017 End: 11-14-2017 inject 1000 [...] tolerance complicating ; childbirth; or the puerperium (4 sources) History of gestational diabetes mellitus; Translations: [...] 10-15-2024 Episodic Other aftercare (1 source) 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; Translations: [OTH PENITENTIARY CURRENT DRUG THERAPY] Onset: 04-10-2023 Episodic Other complications of (2 sources) Spotting per vagina in ; Translations: [Spotting in early ] Episodic Other complications of (2 sources) size does not accord with dates; Translations: [Uterine size-date discrepancy, unspecified trimester] 05-06-2025 Episodic Other complications of (2 sources) Vomiting of , unspecified; Translations: [Unspecified vomiting of , unspecified as to episode of care or not applicable] 05-20-2025 Episodic Other complications of (2 sources) History of pre-eclampsia; Translations: [Supervision of with other poor reproductive or obstetric history, unspecified trimester] 06-08-2025 Episodic Other connective tissue disease (1 source) [...] 10-16-2024 Episodic Other and delivery including normal (20 sources) Urine test positive; Translations: [Normal ] [...] Onset: 10-15-2024 11-01-2017 Episodic Residual codes; unclassified (3 sources) H/O: miscarriage; Translations: [Supervision of with other poor reproductive or obstetric history, unspecified trimester] 06-08-2025 Episodic Residual codes; unclassified (3 sources) Altered [...] [31 weeks gestation of ] 05-20-2025 Episodic Residual codes; unclassified (2 sources) Gestation period, 33 weeks; Translations: [33 weeks gestation of ] 06-08-2025 Episodic Respiratory failure; insufficiency; arrest (adult) (3 [...] Range Facility Urinalysis macro (dipstick) panel (U)on 06-08-2025 Bilirubin, UA Negative Negative - 4(70) +++ mg/dL [facility] Blood, UA Negative Negative - 50 Chriss/mcL [facility] Clarity, UA Clear [facility] Color, UA Yellow [facility] Glucose, UA Negative Negative - 2000(110) ++++ mg/dL [facility] Interpretation and review of laboratory results Normal [facility] Ketones, UA Negative Negative - 160(16) ++++ mg/dL [facility] Leukocytes, UA Negative Negative - 500+++ Leila/mcL [facility] Nitrite, UA Negative Negative - Positive [facility] pH, UA 8 5 - 9 [facility] Protein, UA Negative Negative - 2000(20) ++++ mg/dL [facility] Spec Grav, UA 1.01 1 - 1.03 [facility] Urobilinogen, UA 1.0 0.2 - 12 mg/dL [facility] OVA + PARASITE EXAMon 2024 OVA + PARASITE EXAM Final report . [facility] Comment on above: These results were o btained using wet preparation(s) and trichrome stained smear. This test does not include testing for Cryptosporidium parvum, Cyclospora, or Microsporidia. RESULT 1 Comment . [facility] Comment on above: No ova, cysts, or pa rasites seen. One negative specimen does not rule out the possibility of a parasitic infection. Performed at: [address] [id number] Senior Receptionist: Justice Flor PhD, Phone: [phone] [facility] US OB FOLLOW UP TRANSABDOMIN AL APPROACHon 05-20-2025 OB FOLLOW UP TRANSABDOMINAL APPROACH FINDINGS: Comparison made with prior examination of [...] is 1813 grams (4 pound, 0 ounces). IMPRESSION: 1. Single, live intrauterine , current [...] Comment on above: Order Comment: US OB SCAN FOR GROWTH Estimated Date of Delivery: 07/22/25 Gestational Age as of 05/06/2025: 29w0d Urinalysis macro (dipstick) panel (U)on 05-20-2025 Bilirubin, UA Negative Negative - 4(70) +++ mg/dL [facility] Blood, UA Negative Negative - 50 Chriss/mcL [facility] Clarity, UA Clear [facility] Color, UA Yellow [facility] Glucose, UA Negative Negative - 1999(110) ++++ mg/dL [facility] Interpretation and review of laboratory results Normal [facility] Ketones, UA Negative Negative - 160(16) ++++ mg/dL [facility] Leukocytes, UA Negative Negative - 500+++ Leila/mcL [facility] Nitrite, UA Negative Negative - Positive [facility] pH, UA 8 5 - 9 [facility] Protein, UA Negative Negative - 2000(20) ++++ mg/dL [facility] Spec Grav, UA 1.005 1 - 1.03 [facility] Urobilinogen, UA 1.0 0.2 - 12 mg/dL [facility] GLUCOSE 1 HOURon 05-08-2025 Glucose [Mass/Vol] 121 mg/dL NINF - 13 0 mg/dL [facility] Urinalysis macro (dipstick) panel (U)on 05-06-2025 Bilirubin, UA Negative Negative - 4(70) +++ mg/dL [facility] Blood, UA Positive Negative - 50 Chriss/mcL [facility] Comment on above: Large Clarity, UA Clear [facility] Color, UA Yellow [facility] Glucose, UA Negative Negative - 1999(110) ++++ mg/dL [facility] Interpretation and review of laboratory results Abnormal [facility] Ketones, UA Negative Negative - 160(16) ++++ mg/dL [facility] Leukocytes, UA Negative Negative - 500+++ Leila/mcL [facility] Nitrite, UA Negative Negative - Positive [facility] pH, UA 7 5 - 9 [facility] Protein, UA Negative Negative - 1999(20) ++++ mg/dL [facility] Spec Grav, UA 1.01 1 - 1.03 [facility] Urobilinogen, UA 0.2 0.2 - 12 mg/dL [facility] Urinalysis macro (dipstick) panel (U)on 04-09-2025 Bilirubin, UA Negative Negative - 4(70) +++ mg/dL [facility] Blood, UA Negative Negative - 50 Chriss/mcL [facility] Clarity, UA Clear [facility] Color, UA Yellow [facility] Glucose, UA Negative Negative - 1999(110) ++++ mg/dL [facility] Interpretation and review of laboratory results Abnormal [facility] Ketones, UA Negative Negative - 160(16) ++++ mg/dL [facility] Leukocytes, UA Negative Negative - 500+++ Leila/mcL [facility] Nitrite, UA Negative Negative - Positive [facility] pH, UA 8 5 - 9 [facility] Protein, UA Trace Negative - 1999(20) ++++ mg/dL [facility] Spec Grav, UA 1.01 1 - 1.03 [facility] Urobilinogen, UA 0.2 0.2 - 12 mg/dL [facility] IGP,APTIMA HPV,AGE GDLNon AGE GDLN ACOG TESTING Note . [facility] Comment on above: TESTS RESULT FLAG UN ITS REF RANGE LAB Clinician Provided Cytology Information Source.............[employer] Other.............. No. of containers..01 ThinPrep Vial Age Niya PICHARDO Keira... 29 FLAG LEGEND: L-Low Normal,H-High Normal,LL-Alert Low,HH-Alert High <-Panic Low,>-Panic High,A-Abnormal,AA-Critical Abnormal Performed at: 01 =[address] [id number] Jesi Kuhn MD, HPV APTIMA Negative Negative [facility] Comment on above: This nucleic acid am plification test detects fourteen high- risk HPV types (16,18,31,33,35,39,45,51,52,56,58,59,66,68) without differentiation. Performed at: =[address] [id number] Senior Receptionist: Jesi Kuhn MD, Phone: [phone] Performed at: [address] [id number] Senior Receptionist: Jesi Kuhn MD, Phone: [phone] IGP, APTIMA HPV, RFX 16/18,45 Note . [facility] Comment on above: TESTS RESULT FLAG UN ITS REF RANGE LAB DIAGNOSIS: 02 NEGATIVE FOR INTRAEPITHELIAL LESION OR MALIGNANCY. Specimen adequacy: 02 Satisfactory for evaluation. No endocervical component is identified. Performed by: 02 Janie Almazan Accounting Specialist . 02 Note: Note 02 The Pap [...] <-Panic Low,>-Panic High,A-Abnormal,AA-Critical Abnormal Performed at: [address] [phone] Jesi Kuhn MD, SPATULA-ALONE [facility] RECURRENT VAGINITIS (HTRX)on 03-12-2025 ATOPOBIUM VAGINAE 0 [facility] ATOPOBIUM VAGINAE Not detected [facility] BVAB 2,3 (BACTERIAL VAGINOSIS ASSOCIATED BACTERIA 2, 3); MOBILUNCUS SPP 0 [facility] BVAB 2,3 (BACTERIAL VAGINOSIS ASSOCIATED BACTERIA 2, 3); MOBILUNCUS SPP Not detected [facility] TIMOTHY ALBICANS, PARAPSILOSIS, TROPICALIS 0 [facility] TIMOTHY ALBICANS, PARAPSILOSIS, TROPICALIS Not detected [facility] TIMOTHY GLABRATA 0 [facility] TIMOTHY GLABRATA Not detected [facility] TIMOTHY KRUSEI 0 [facility] TIMOTHY KRUSEI Not detected [facility] CHLAMYDIA TRACHOMATIS 0 [facility] CHLAMYDIA TRACHOMATIS Not detected [facility] GARDNERELLA VAGINALIS 0 [facility] GARDNERELLA VAGINALIS Not detected [facility] MEGASPHAERA (TYPES 1, 2) 0 [facility] MEGASPHAERA (TYPES 1, 2) Not detected [facility] MYCOPLASMA GENITALIUM 0 [facility] MYCOPLASMA GENITALIUM Not detected [facility] NEISSERIA GONORRHOEAE 0 [facility] NEISSERIA GONORRHOEAE Not detected [facility] TRICHOMONAS VAGINALIS 0 [facility] TRICHOMONAS VAGINALIS Not detected [facility] US OB 14+ WEEKS ANATOMY SCAN [...] UA Negative Negative - 4(70) +++ mg/dL [facility] Blood, UA Negative Negative - 50 Chriss/mcL [facility]arity, [facility]A [facility] Color, UA Yellow [facility] Glucose, UA Negative Negative - 2000(110) ++++ mg/dL [facility] Interpretation and review of laboratory results Normal [facility] Ketones, UA Negative Negative - 160(16) ++++ mg/dL [facility] Leukocytes, UA Negative Negative - 500+++ Leila/mcL [facility] Nitrite, UA Negative Negative - Positive [facility] pH, UA 8.5 5 - 9 [facility] Protein, UA Negative Negative - 2000(20) ++++ mg/dL [facility] Spec Grav, UA 1.02 1 - 1.03 [facility] Urobilinogen, UA 0.2 0.2 - 12 mg/dL [facility] Urinalysis macro (dipstick) panel (U)on 01-19-2025 Bilirubin, UA Negative Negative - 4(70) +++ mg/dL [facility] Blood, UA Positive Negative - 50 Chriss/mcL [facility] Comment on above: large Clarity, UA Cloudy [facility] Color, UA Yellow [facility] Glucose, UA Negative Negative - 1999(110) ++++ mg/dL [facility] Interpretation and review of laboratory results Abnormal [facility] Ketones, UA Negative Negative - 160(16) ++++ mg/dL [facility] Leukocytes, UA Trace Negative - 500+++ Leila/mcL [facility] Nitrite, UA Negative Negative - Positive [facility] pH, UA 7.5 5 - 9 [facility] Protein, UA Trace Negative - 2000(20) ++++ mg/dL [facility] Spec Grav, UA 1.02 1 - 1.03 [facility] Urobilinogen, UA 1.0 0.2 - 12 mg/dL [facility] BOX TESTon 01-07-2025 BOX TEST SENT OUT [facility] BOX1 [facility] BOX2 01/07/2025 [facility] HCG ( test) Ql (U)o n 01-01-2025 Preg Test, Ur Positive Negative [facility] No Panel Informationon 01-01 Interpretation and review of laboratory results Abnormal [facility] US OB TRANSVAGINALon 025 US OB TRANSVAGINAL [...] II, MD, PHD at 08-Jan-2025 02:06:49 PM [facility] [place] [facility] Normal Not Available Comment on above: Order Comment: US OB TRANSVAGINAL No LMP recorded. Urinalysis macro (dipstick) panel (U)on 01-01-2025 Bilirubin, UA Negative Negative - 4(70) +++ mg/dL [facility] Blood, UA Negative Negative - 50 Chriss/mcL [facility] Clarity, [facility]A Clear [facility] Color, UA Yellow [facility] Glucose, UA Negative Negative - 2000(110) ++++ mg/dL [facility] Ketones, UA Negative Negative - 160(16) ++++ mg/dL [facility] Leukocytes, UA Trace Negative - 500+++ Leila/mcL [facility] Nitrite, UA Negative Negative - Positive [facility] Healthcare pH, UA 7 5 - 9 [facility] Protein, UA Negative Negative - 2000(20) ++++ mg/dL [facility] Spec Grav, UA 1.02 1 - 1.03 [facility] Urobilinogen, UA 0.2 0.2 - 12 mg/dL [facility] Alanine aminotransferase [En zymatic activity/volume] in Serum or PlasmaOrdered By: Dane Erwin on 10-19-2024 ALT [Catalytic activity/Vol] Alanine aminotransferase [Enzymatic activity/volume] in Serum or Plasma High 7-52 [facility] Albumin [Mass/volume] in Ser um or Plasma by Bromocresol green (BCG) dye binding methoOrdered By: Dane Erwin on 10-19-2024 Albumin BCG dye [Mass/Vol] Albumin [Mass/volume] in Serum or Plasma by Bromocresol green (BCG) dye binding metho 3.5-5.7 [facility] Alkaline phosphatase [Enzyma tic activity/volume] in Serum or PlasmaOrdered By: Dane Erwin on 10-19-2024 ALP [Catalytic activity/Vol] Alkaline phosphatase [Enzymatic activity/volume] in Serum or Plasma High 34-104 [facility] Aspartate aminotransferase [ Enzymatic activity/volume] in Serum or PlasmaOrdered By: Dane Erwin on 10-19-2024 AST [Catalytic activity/Vol] Aspartate aminotransferase [Enzymatic activity/volume] in Serum or Plasma 13-39 [facility] Bilirubin.total [Mass/volume ] in Serum or PlasmaOrdered By: Dane Erwin on 10-19-2024 Bilirubin [Mass/Vol] Bilirubin.total [Mass/volume] in Serum or Plasma 0.3-1.0 [facility] Calcium [Mass/volume] in Ser um or PlasmaOrdered By: Dane Erwin on 10-19-2024 Calcium [Mass/Vol] Calcium [Mass/volume ] in Serum or Plasma 8.6-10.3 [facility] Carbon dioxide, total [Moles /volume] in Serum or PlasmaOrdered By: Dane Erwin on 10-19-2024 CO2 [Moles/Vol] Carbon dioxide, tota l [Moles/volume] in Serum or Plasma High 21.0-31.0 [facility] Chloride [Moles/volume] in S lizette or PlasmaOrdered By: Dane Erwin on 10-19-2024 Chloride [Moles/Vol] Chloride [Moles/vol ume] in Serum or Plasma 98-107 [facility] Comprehensive Metabolic Pane perez 10-19-2024 Albumin [Mass/Vol] 4.0 g/dL Normal 3.5-5.7 [facility] Comment on above: Performed By: #### C MP #### [address] Albumin/Globulin [Mass ratio] 1.7 {ratio} Normal [facility] Comment on above: Performed By: #### C MP #### [address] ALP [Catalytic activity/Vol] 117 U/L High 34-104 [facility] Comment on above: Performed By: #### C MP #### [address] ALT [Catalytic activity/Vol] 131 U/L High 7-52 [facility] Comment on above: Performed By: #### C MP #### [address] Anion gap [Moles/Vol] 9.1 mmol/L Normal 6.0-15.0 [facility] Comment on above: Performed By: #### C MP #### [address] AST [Catalytic activity/Vol] 34 U/L Normal 13-39 [facility] Comment on above: Performed By: #### C MP #### [address] Bilirubin [Mass/Vol] 0.5 mg/dL Normal 0.3-1.0 [facility] Comment on above: Performed By: #### C MP #### [address] Calcium [Mass/Vol] 9.8 mg/dL Normal 8.6-10.3 [facility] Comment on above: Performed By: #### C MP #### [address] Chloride [Moles/Vol] 101 mmol/L Normal 98-107 [facility] Comment on above: Performed By: #### C MP #### [facility] [address] CO2 [Moles/Vol] 33.1 mmol/L High 21.0-31.0 [facility] Comment on above: Performed By: #### C MP #### [address] Creatinine [Mass/Vol] 0.74 mg/dL Normal 0.60-1.20 [facility] Comment on above: Performed By: #### C MP #### [place] [address] [place] Creatinine Clr Calc Pharmacy 98.70 Normal [facility] Comment on above: Result Comment: PERF ORMED BY: [place] [address] PATHOLOGIST YARD MOTOR OPERATOR MARQUITA BOLAÑOS M.D. Performed By: #### C MP #### [place] [address] [place] GFR/1.73 sq M.predicted MDRD (S/P/Bld) [Vol rate/Area] mL/min/{1.73_m2} Normal [facility] Comment on above: Performed By: #### C MP #### [address] Globulin (S) [Mass/Vol] 2.4 g/dL Normal [facility] Comment on above: Performed By: #### C MP #### [address] Glucose [Mass/Vol] 67 mg/dL Low 70-100 [facility] Comment on above: Result Comment: [place] Glucose Reference Range is dependent on time and content of last meal. Glucose of more than 200 mg/dL in a nonstressed, ambulatory subject supports the diagnosis of Diabetes Mellitus. ADA recommended reference range Performed By: #### C MP #### [address] Potassium [Moles/Vol] 4.2 mmol/L Normal 3.5-5.1 [facility] Comment on above: Performed By: #### C MP #### [facility] [address] Protein [Mass/Vol] 6.4 g/dL Normal 6.4-8.9 [facility] Comment on above: Performed By: #### C MP #### [address] Sodium [Moles/Vol] 139 mmol/L Normal 136-145 [facility] Comment on above: Performed By: #### C MP #### [facility] [address] Urea nitrogen [Mass/Vol] 17 mg/dL Normal 7-25 [facility] Comment on above: Performed By: #### C MP #### [address] Creatinine [Mass/volume] in Serum or PlasmaOrdered By: Dane Erwin on 10-19-2024 Creatinine [Mass/Vol] Creatinine [Mass/v olume] in Serum or Plasma 0.60-1.20 [facility] Globulin Calc (S) [Mass/Vol] Ordered By: Dane Ewrin on 10-19-2024 Globulin (S) [Mass/Vol] Serum globulin measurement by calculation (mass/volume) [facility] Glucose [Mass/volume] in Ser um or PlasmaOrdered By: Dane Erwin on 10-19-2024 Glucose [Mass/Vol] Glucose [Mass/volume ] in Serum or Plasma Low 70-100 [facility] Comment on above: ADA recommended refe rence rangeRandom Glucose Reference Range is dependent on time and content of last meal. Glucose of more than 200 mg/dL in a nonstressed, ambulatory subject supports the diagnosis of Diabetes Mellitus. No Panel InformationOrdered By: Dane Erwin on 10-19-2024 Estimated GFR (CKD-EPI) > 60.0 mL/Min [facility] Creatinine Clearance (Chem 98.70 [facility] Potassium [Moles/volume] in Serum or PlasmaOrdered By: Dane Erwin on 10-19-2024 Potassium [Moles/Vol] Potassium [Moles/v olume] in Serum or Plasma 3.5-5.1 [facility] Protein [Mass/volume] in Ser um or PlasmaOrdered By: Dane Erwin on 10-19-2024 Protein [Mass/Vol] Protein [Mass/volume ] in Serum or Plasma 6.4-8.9 [facility] Serum or plasma albumin/glob ulin mass ratioOrdered By: Dane Erwin on 10-19-2024 Albumin/Globulin [Mass ratio] Serum or plasma albumin/globulin mass ratio [facility] Serum or plasma anion gap de terminationOrdered By: Dane Erwin on 10-19-2024 Anion gap [Moles/Vol] Serum or plasma an ion gap determination 6.0-15.0 [facility] Sodium [Moles/volume] in Ser um or PlasmaOrdered By: Dane Erwin on 10-19-2024 Sodium [Moles/Vol] Sodium [Moles/volume ] in Serum or Plasma 136-145 [facility] Urea nitrogen [Mass/volume] in Serum or PlasmaOrdered By: Dane Erwin on 10-19-2024 Urea nitrogen [Mass/Vol] Urea nitrogen [Mass/volume] in Serum or Plasma 7-25 [facility] Cholesterol [Mass/volume] in Serum or PlasmaOrdered By: Dane Erwin on 10-18-2024 Cholesterol [Mass/Vol] Cholesterol [Mass /volume] in Serum or Plasma Low 140-200 [facility] Comment on above: Chol less than 200 m g/dl low riskChol 201-239 mg/dl borderline riskChol 240 mg/dl and greater high risk Cholesterol in HDL [Mass/vol ume] in Serum or PlasmaOrdered By: Dane Erwin on 10-18-2024 Cholesterol in HDL [Mass/Vol] Serum or plasma high density lipoprotein (HDL) cholesterol measurement 23-92 [facility] Comment on above: HDL CHOL ATP-III CLA SSIFICATION Cardiovascular RiskHDL > or equal to 60 mg/dL LOWHDL < 40 mg/dL HIGH Cholesterol in LDL Calc [Mas s/Vol]Ordered By: Dane Erwin on 10-18-2024 Cholesterol in LDL [Mass/Vol] Cholesterol in LDL [Mass/volume] in Serum or Plasma by calculation 0-100 [facility] Comment on above: LDL ATP III CLASSIFI CATIONLDL less than 100 mg/dL OptimalLDL 100-129 mg/dL Near or above optimalLDL 130-159 mg/dL Borderline highLDL 160-189 mg/dL HighLDL greater than 189 mg/dL Very high Cholesterol in VLDL Calc [Ma ss/Vol]Ordered By: Dane Erwin on 10-18-2024 Cholesterol in VLDL [Mass/Vol] Cholesterol in VLDL [Mass/volume] in Serum or Plasma by calculation [facility] Lipid Panelon 10-18-2024 Cholesterol [Mass/Vol] 115 mg/dL Low 140-200 [facility] Comment on above: Result Comment: Chol less than 200 mg/dl low risk Chol 201-239 mg/dl borderline risk Chol 240 mg/dl and greater high risk Performed By: #### U RDS #### [facility] [address] [id number] [place] Cholesterol in HDL [Mass/Vol] 36 mg/dL Normal 23-92 [facility] Comment on above: Result Comment: HDL CHOL ATP-III CLASSIFICATION Cardiovascular Risk HDL > or equal to 60 mg/dL LOW HDL < 40 mg/dL HIGH Performed By: #### U RDS #### [facility] [address] [place] [address] [place] Cholesterol.total/Chol esterol in HDL [Mass ratio] 3.2 {ratio} Normal <5.0 [facility] Comment on above: Performed By: #### U RDS #### [facility] [address] [place] [address] [place] LDL Cholesterol,Calculated 55 mg/dL Normal 0-100 [facility] Comment on above: Result Comment: LDL ATP III CLASSIFICATION LDL less than 100 mg/dL Optimal LDL 100-129 mg/dL Near or above optimal LDL 130-159 mg/dL Borderline high LDL 160-189 mg/dL High LDL greater than 189 mg/dL Very high Performed By: #### U RDS #### [facility] [address] Triglyceride w/Reflex 120 mg/dL Normal 0-149 [facility] Comment on above: Result Comment: TRIG ATP III CLASSIFICATION TRIG less than 150 mg/dL Normal TRIG 150-199 mg/dL Borderline high TRIG 200-500 mg/dL High TRIG greater than 500 mg/dL Very high Standard traceable to the Center for Disease Conrtrol and Prevention (CDC) test method. Performed By: #### U RDS #### [facility] [address] VLDL CHOLESTEROL 24 mg/dL Normal [facility] Comment on above: Performed By: #### U RDS #### [address] Serum or plasma total choles terol/high density lipoprotein (HDL) cholesterol mass ratOrdered By: Dane Erwin on 10-18-2024 Cholesterol.total/Chol esterol in HDL [Mass ratio] Serum or plasma total cholesterol/high density lipoprotein (HDL) cholesterol mass rat <5.0 [facility] Thyroid Stim Hormone w/Rflxo n 10-18-2024 Thyroid Stim Hormone w/Rflx 2.83 u[iU]/mL Normal 0.45-5.33 [facility] Comment on above: Performed By: #### U RDS #### [address] Thyrotropin [Units/volume] i n Serum or PlasmaOrdered By: Dane Erwin on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 Negative Normal [facility] Comment on above: Result Comment: PERF ORMED BY: [place] [address] PATHOLOGIST YARD MOTOR OPERATOR MARQUITA BOLAÑOS M.D. Performed By: #### A MM #### [address] Hepatitis A virus IgM antibo dy assayOrdered By: Elfego Muniz on 10-16-2024 Hepatitis A IgM Antibody Negative Negative [facility] Comment on above: A negative anti-HAV IgM result suggests no recent orcurrent HAV infection. Hepatitis Acute Panelon 09-19 HBsAg Screen Negative Normal Negative [facility] Comment on above: Performed By: #### U RDS #### [address] HCV Log10 2.903 Normal . [facility] Comment on above: Result Comment: Resu lt Units: log10 IU/mL Performed By: #### U RDS #### [address] Hepatitis A Antibody IgM Negative Normal Negative [facility] Comment on above: Result Comment: A ne gative anti-HAV IgM result suggests no recent or current HAV infection. Performed By: #### U RDS #### [address] Hepatitis B Core Antibody IgM Negative Normal Negative [facility] Comment on above: Performed By: #### U RDS #### [address] Hepatitis C Quantitation 800 [IU]/mL Normal . [facility] Comment on above: Performed By: #### U RDS #### [address] Hepatitis C Virus Antibody Reactive Critically abnormal Non Reactive [facility] Comment on above: Performed By: #### U RDS #### [address] Interpretation Comment Normal . [facility] Comment on above: Result Comment: Posi tive HCV antibody screen with the presence of HCV RNA is consistent with active infection. Performed at: - [facility] [id number] Senior Receptionist: Justice Flor PhD, Phone: [phone] Performed at: [facility] [id number] Senior Receptionist: Alejandra Palomino MD, Phone: [phone] PERFORMED BY: [place] [address] PATHOLOGIST YARD MOTOR OPERATOR MARQUITA BOALÑOS M.D. Performed By: #### U RDS #### [address] Test Information: Comment Normal . [facility] Comment on above: Result Comment: The quantitative range of this assay is 15 IU/mL to 100 million IU/mL. Performed By: #### U RDS #### [address] Hepatitis B virus core IgM a ntibody assayOrdered By: Elfego Muniz on 10-16-2024 Hepatitis B Core IgM Antibody Negative Negative [facility] Hepatitis C virus IgG Ab [Pr esence] in Serum or Plasma by ImmunoassayOrdered By: Elfego Muniz on 10-16-2024 HCV IgG IA Ql Hepatitis C virus Ig G Ab [Presence] in Serum or Plasma by Immunoassay Abnormal Non Reactive [facility] INR in Platelet poor plasma by Coagulation assayOrdered By: Elfego Muniz on 10-16-2024 INR Coag (PPP) [Relative time] INR in Platelet poor plasma by Coagulation assay [facility] Comment on above: INR Therapeutic Rang [...] i n Serum or Plasma Low 50-212 [facility] Iron and TIBC Profileon 09-19 0-2024 % Iron Saturation 8.9 % Low 20-50 [facility] Comment on above: Performed By: #### A MM #### [facility] [address] Iron [Mass/Vol] 35 ug/dL Low 50-212 [facility] Comment on above: Performed By: #### A MM #### [facility] [address] [place] [id number] [place] Total Iron Binding Capacity 395 ug/dL Normal 255-450 [facility] Comment on above: Performed By: #### A MM #### [facility] [address] [place] [id number] [place] Transferrin [Mass/Vol] 282 mg/dL Normal 203-362 [facility] Comment on above: Performed By: #### A MM #### [facility] [address] [place] [id number] [place] Lactate [Moles/volume] in Se rum or PlasmaOrdered By: Elfego Muniz on 10-16-2024 Lactate [Moles/Vol] Lactate [Moles/volum e] in Serum or Plasma 0.5-1.9 [facility] Comment on above: Lactic Acid referenc e range has been updated to 0.5 1.9 mmol/L and the critical range of 2.0 or greater. Lactic Acidon 10-16-2024 Lactate [Moles/Vol] 0.5 mmol/L Normal 0.5-1.9 [facility] Comment on above: Result Comment: Lact ic Acid reference range has been updated to 0.5 ? 1.9 mmol/L and the critical range of 2.0 or greater. PERFORMED BY: [place] [address] PATHOLOGIST YARD MOTOR OPERATOR MARQUITA BOLAÑOS M.D. Performed By: #### L ACTIC #### [address] MR head/brain wo conon 10-16 MR head/brain wo con [facility] Main [place] [address] [place] [address] MRI Report Signed Patient: Noe Duran MR#: [id number] : 1995 Acct:[id number] Age/Sex: 29 / F ADM Date: 10/15/24 Loc: Room: [address] [place] [address] Type: ADM IN Attending Dr: Leola Smith [...] Beto Little M.D.10/16/2024 9:38 PM Dictation Location: [place] [address] Transcribed By: [facility] 10/16/242137 Dictated By: Beto Little DO 10/16/242127 Signed By: 10/16/242137 Normal [facility] Magnesiumon 10-16-2024 Magnesium [Mass/Vol] 2.1 mg/dL Normal 1.9-2.7 [facility] Comment on above: Result Comment: PERF ORMED BY: [place] [address] PATHOLOGIST YARD MOTOR OPERATOR MARQUITA BOLAÑOS M.D. Performed By: #### A MM #### [address] Magnesium [Mass/volume] in S lizette or PlasmaOrdered By: Elfego Muniz on 10-16-2024 Magnesium [Mass/Vol] Magnesium [Mass/vol ume] in Serum or Plasma 1.9-2.7 [facility] Magnetic resonance imaging r eportOrdered By: Beto Little on 10-16-2024 Study report [facility] [place] [address] MRI Report Signed Patient: Noe Duran MR#: [id number] : 1995 Acct:[id number] Age/Sex: 29 / F ADM Date: 5 Loc: Room: [address] [place] [address] Type: ADM IN Attending Dr: Leola Smith [...] Beto Little M.D.10/16/2024 9:38 PM Dictation Location: [place] [address] Transcribed By: [facility] 10/16/242137 Dictated By: Beto Little DO 10/16/242127 Signed By: 10/16/242137 [facility] Microcytes LM Ql (Bld)Ordere d By: Elfego Muniz on 10-16-2024 Microcytes Ql (Bld) Microcytes [Presence ] in Blood by Light microscopy [facility] No Panel InformationOrdered By: Elfego Muniz on 10-16-2024 Hepatitis C RNA Qnt (PCR) Test Info Comment . [facility] Comment on above: The quantitative ran ge of this assay is 15 IU/mL to 100million IU/mL. Partial Thromboplastin Timeo n 10-16-2024 aPTT Coag (Bld) [Time] 31.2 s Normal 25.1-36.5 [facility] Comment on above: Result Comment: A he matocrit value greater than 55% may lead to inaccurate results in coagulation testing. Patients having hematocrit values >55% require a special collection tube for coagulation studies. Please contact the laboratory at [phone] for redraw instructions. PERFORMED BY: [place] [id number] PATHOLOGIST YARD MOTOR OPERATOR MARQUITA BOLAÑOS M.D. Performed By: #### A MM #### [address] Path. Reviewon 10-16-2024 Path Review Atypical lymphocytos is and monocytosis. Clinical correlation and further follow-up is recommended for etiology as clinically indicated. Invalid Interpretation Code [facility] Comment on above: Performed By: #### 1 [id number] #### [facility] [address] [place] [address] Phosphate [Mass/volume] in S lizette or PlasmaOrdered By: Leola Smith on 10-16-2024 Phosphate [Mass/Vol] Phosphate [Mass/vol ume] in Serum or Plasma 2.5-4.5 [facility] Phosphoruson 10-16-2024 Phosphate [Mass/Vol] 3.5 mg/dL Normal 2.5-4.5 [facility] Comment on above: Performed By: #### A MM #### [facility] [address] [place] [address] [place] Platelet adequacy [Presence] in Blood by Light microscopyOrdered By: Elfego Muniz on 10-16-2024 Platelets LM Ql (Bld) Platelet adequacy [Presence] in Blood by Light microscopy Normal [facility] Platelet morphology finding [Identifier] in BloodOrdered By: Elfego Muniz on 10-16-2024 Platelet morphology finding Nom (Bld) Platelet morphology finding [Identifier] in Blood Normal [facility] Prothrombin Time INRon 10-16 INR Coag (PPP) [Relative time] 0.9 {INR} Normal [facility] Comment on above: Result Comment: [...] 4.5 Performed By: #### A MM #### [facility] [address] [place] [id number] [place] PT Coag (PPP) [Time] 10.9 s Normal 9.0-12.9 [facility] Comment on above: Result Comment: A he matocrit value greater than 55% may lead to inaccurate results in coagulation testing. Patients having hematocrit values >55% require a special collection tube for coagulation studies. Please contact the laboratory at [phone] for redraw instructions. Performed By: #### A MM #### [address] Prothrombin time (PT)Ordered By: Elfego Muniz on 10-16-2024 PT Coag (PPP) [Time] Prothrombin time (PT) 9.0- 12.9 [facility] Comment on above: A hematocrit value g reater than 55% may lead to inaccurate results in coagulation testing. Patients having hematocrit values >55% require a special collection tube for coagulation studies. Please contact the laboratory at [phone] for redraw instructions. Scan and CBCon 10-16-2024 Anisocytosis Ql (Bld) Moderate Normal [facility] Comment on above: Performed By: #### A MM #### [address] Basophils (Bld) [#/Vol] 0.0 10*3/uL Normal 0.0-0.2 [facility] Comment on above: Performed By: #### A MM #### [address] Basophils/100 WBC (Bld) 0.4 % Normal . [facility] Comment on above: Performed By: #### A MM #### [address] Eosinophils (Bld) [#/Vol] 0.0 10*3/uL Normal 0.0-0.45 [facility] Comment on above: Performed By: #### A MM #### [address] Eosinophils/100 WBC (Bld) 0.1 % Normal . [facility] Comment on above: Performed By: #### A MM #### [address] Erythrocyte distribution width (RBC) [Ratio] 17.2 % High 11.9-15.3 [facility] Comment on above: Performed By: #### A MM #### [address] Hematocrit (Bld) [Volume fraction] 30.1 % Low 34.0-46.4 [facility] Comment on above: Performed By: #### A MM #### [address] Hemoglobin (Bld) [Mass/Vol] 9.9 g/dL Low 11.8-15.4 [facility] Comment on above: Performed By: #### A MM #### [address] Lymphocytes (Bld) [#/Vol] 3.4 10*3/uL Normal 1.00-4.8 [facility] Comment on above: Performed By: #### A MM #### [address] Lymphocytes/100 WBC (Bld) 57.6 % Normal . [facility] Comment on above: Performed By: #### A MM #### [address] MCH (RBC) [Entitic mass] 26.0 pg Normal 24.7-34.3 [facility] Comment on above: Performed By: #### A MM #### [address] MCV (RBC) [Entitic vol] 79.2 fL Low 80-100 [facility] Comment on above: Performed By: #### A MM #### [address] Mean Corpuscular HGB Conc 32.9 g/dL Normal 32.0-35.0 [facility] Comment on above: Performed By: #### A MM #### [address] Microcytosis Slight Normal [facility] Comment on above: Performed By: #### A MM #### [address] Monocytes (Bld) [#/Vol] 0.3 10*3/uL Normal 0.0-0.8 [facility] Comment on above: Performed By: #### A MM #### [address] Monocytes/100 WBC (Bld) 5.2 % Normal . [facility] Comment on above: Performed By: #### A MM #### [address] Neutrophils (Bld) [#/Vol] 2.1 10*3/uL Normal 1.8-7.7 [facility] Comment on above: Performed By: #### A MM #### [address] Neutrophils/100 WBC (Bld) 36.7 % Normal . [facility] Comment on above: Performed By: #### A MM #### [address] NRBC% 0.2 /100{WBC} Normal 0-0.5 [facility] Comment on above: Performed By: #### A MM #### [address] Platelet Estimate Normal Normal Normal [facility] Comment on above: Performed By: #### A MM #### [address] Platelet mean volume (Bld) [Entitic vol] 9.0 fL Normal 6.3-10.7 [facility] Comment on above: Performed By: #### A MM #### [address] Platelet Morphology Normal Normal Normal [facility] Comment on above: Result Comment: PERF ORMED BY: [place] [address] PATHOLOGIST YARD MOTOR OPERATOR MARQUITA BOLAÑOS M.D. Performed By: #### A MM #### [address] Platelets (Bld) [#/Vol] 172 10*3/uL Normal 150-450 [facility] Comment on above: Performed By: #### A MM #### [facility] [address] RBC (Bld) [#/Vol] 3.80 10*6/uL Normal 3.60-5.00 [facility] Comment on above: Performed By: #### A MM #### [facility] [address] WBC (Bld) [#/Vol] 5.8 10*3/uL Normal 3.8-11.6 [facility] Comment on above: Performed By: #### A MM #### [facility] [address] Serum or plasma hepatitis B virus surface antigen detection by immunoassayOrdered By: Elfego Muniz on 10-16-2024 HBV surface Ag IA Ql Hepatitis B virus s urface Ag [Presence] in Serum or Plasma by Immunoassay Negative [facility] Serum or plasma hepatitis C virus RNA viral load by probe and target amplification meOrdered By: Elfego Muniz on 10-16-2024 HCV RNA ELMO+probe [Log units/Vol] Hepatitis C virus RNA [log units/volume] (viral load) in Serum or Plasma by ELMO with . [facility] Comment on above: Result Units: log10 IU/mL Serum or plasma iron binding capacity measurement (mass/volume)Ordered By: Leola Smith on 10-16-2024 Iron binding capacity [Mass/Vol] Iron binding capacity [Mass/volume] in Serum or Plasma 255-450 [facility] Serum or plasma iron saturat ion measurement (mass fraction)Ordered By: Leola Smith on 10-16-2024 Iron saturation [Mass fraction] Iron saturation [Mass Fraction] in Serum or Plasma Low 20-50 [facility] Transferrin [Mass/volume] in Serum or PlasmaOrdered By: Leola Smith on 10-16-2024 Transferrin [Mass/Vol] Transferrin [Mass /volume] in Serum or Plasma 203-362 [facility] aPTT in Platelet poor plasma by Coagulation assayOrdered By: Elfego Muniz on 10-16-2024 aPTT Coag (PPP) [Time] Activated partial thromboplastin time (aPTT) in platelet poor plasma by coagulation a 25.1-36.5 [facility] Comment on above: A hematocrit value g reater than 55% may lead to inaccurate results in coagulation testing. Patients having hematocrit values >55% require a special collection tube for coagulation studies. Please contact the laboratory at [phone] for redraw instructions. ABO/Rhon 10-15-2024 ABO/Rh Positive Invalid Interpretation Code [facility] Comment on above: Performed By: #### 2 [id number] #### [facility] [address] [place] [address] ABO/Rh History Checkon 10-15 ABO/Rh History Check Type verified by second s Normal [facility] Comment on above: Performed By: #### 1 [id number] #### [facility] [address] [place] [address] ABO/Rh Retypeon 10-15-2024 ABO/Rh Retype Interp Positive Invalid Interpretation Code [facility] Comment on above: Performed By: #### 1 [id number] #### [facility] [address] [place] [address] ABSCon 10-15-2024 ABSC Gel Interp Negative Normal [facility] Comment on above: Performed By: #### 1 [id number] #### [facility] [address] [place] [address] Acetamnphn Lvlon 10-15-2024 Acetaminoph Lvl <.1 Low 15.0-30.0 [facility] Comment on above: Performed By: #### 2 [id number] #### [facility] [address] [place] [address] Amphetamine Screen Ql (U)Ord ered By: Elfego Muniz on 10-15-2024 Amphetamines Ql (U) Amphetamines screen High Negativ e [facility] Appearance of UrineOrdered B y: Elfego Muniz on 10-15-2024 Appearance (U) Urine appearance Clear [facility] B hCG Qualon 10-15-2024 Beta HCG ( test) Ql Negative Normal [facility] Comment on above: Performed By: #### 2 [id number] #### [facility] [address] [place] [address] BLOOD BANKOrdered By: Cesilia Nicolas on 10-15-2024 ABO/Rh Retype Interp Positive Invalid Interpretation Code [facility] BB Subsection BLOOD BANKOrdered By: Marta Luna on 10-15-2024 ABO/Rh Interp Positive Invalid Interpretation Code [facility] BB Subsection ABSC Gel Interp Negative (10/15/24 1:35 PM) Normal [facility] BB Subsection BMPon 10-15-2024 Anion gap [Moles/Vol] 15 mmol/L Normal 6-16 [facility] Comment on above: Performed By: #### 2 [id number] #### [facility] [address] [place] [address] Calcium [Mass/Vol] 8.8 mg/dL Low 8.9-11.1 [facility] Comment on above: Performed By: #### 2 [id number] #### [facility] [address] [place] [address] Chloride [Moles/Vol] 105 mmol/L Normal 101-111 [facility] Comment on above: Performed By: #### 2 [id number] #### [facility] [address] [place] [address] CO2 [Moles/Vol] 22 mmol/L Normal 21-31 [facility] Comment on above: Performed By: #### 2 [id number] #### [facility] [address] [place] [address] Creatinine [Mass/Vol] 0.8 mg/dL Normal 0.5-1.3 [facility] Comment on above: Performed By: #### 2 [id number] #### [facility] [address] [place] [address] Glucose [Mass/Vol] 97 mg/dL Normal 55-199 [facility] Comment on above: Performed By: #### 2 [id number] #### [facility] [address] [place] [address] Potassium [Moles/Vol] 3.2 mmol/L Low 3.5-5.3 [facility] Comment on above: Performed By: #### 2 [id number] #### [facility] [address] [place] [address] Sodium [Moles/Vol] 139 mmol/L Normal 135-145 [facility] Comment on above: Performed By: #### 2 [id number] #### [facility] [address] [place] [address] Urea nitrogen [Mass/Vol] 19 mg/dL Normal 5-21 [facility] Comment on above: Performed By: #### 2 [id number] #### [facility] [address] [place] [address] Urea nitrogen/Creatinine [Mass ratio] 24 No Units High 10-20 [facility] Comment on above: Performed By: #### 2 [id number] #### [facility] [address] [place] [address] Barbiturates [Presence] in U rine by Screen methodOrdered By: Elfego Muniz on 10-15-2024 Barbiturates Screen Ql (U) Barbiturates [Presence] in Urine by Screen method Negative [facility] Benzodiazepines Screen Ql (U )Ordered By: Elfego Muniz on 10-15-2024 Benzodiazepines Ql (U) Benzodiazepines [Presence] in Urine by Screen method Negative [facility] Benzoylecgonine [Presence] i n Urine by Screen methodOrdered By: Elfego Muniz on 10-15-2024 Benzoylecgonine Screen Ql (U) Benzoylecgonine [Presence] in Urine by Screen method Negative [facility] Bilirubin Test strip Ql (U)O rdered By: Elfego Muniz on 10-15-2024 Bilirubin Ql (U) Bilirubin.total [Presence] in Urine by Test strip Negative [facility] BioFire Not Detectedon 10-15 BioFire Not Detected Not detected Normal Not Detecte [facility] Comment on above: Result Comment: This is a duplicate RP2.1 COVID (PCR) result to be used for statistical tracking purpose only. PERFORMED BY: [place] [address] PATHOLOGIST YARD MOTOR OPERATOR MARQUITA BOLAÑOS M.D. Performed By: #### U RDS #### [place] [id number] [facility] ID#on 10-15-2024 BBID# [id number] Invalid Interpretation Code [facility] Comment on above: Performed By: #### 1 [id number] #### [facility] [address] [place] [address] CBC w/ Auto Diffon 5 Band form neutrophils/100 WBC (Bld) 1.0 % Normal 0.0-6.0 [facility] Comment on above: Performed By: #### 2 [id number] #### [facility] [address] [place] [address] Basophils (Bld) [#/Vol] 0.0 E9/L Normal 0.0-0.2 [facility] Comment on above: Performed By: #### 2 [id number] #### [facility] [address] [place] [address] Eosinophils (Bld) [#/Vol] 0.1 E9/L Normal 0.0-0.5 [facility] Comment on above: Performed By: #### 2 [id number] #### [facility] [address] [place] [address] Eosinophils/100 WBC (Bld) 1.0 % Normal 0.0-8.0 [facility] Comment on above: Performed By: #### 2 196252 #### [facility] [address] [place] [address] Erythrocyte distribution width (RBC) [Ratio] 17.2 % High 10.9-14.2 [facility] Comment on above: Performed By: #### 2 [id number] #### [facility] [address] [place] [address] Hematocrit (Bld) [Volume fraction] 34.7 % Normal 34.0-46.0 [facility] Comment on above: Performed By: #### 2 [id number] #### [facility] [address] [place] [address] Hemoglobin (Bld) [Mass/Vol] 11.5 g/dL Low 12.0-16.0 [facility] Comment on above: Performed By: #### 2 [id number] #### [facility] [address] [place] [address] Lymphocytes (Bld) [#/Vol] 7.8 E9/L High 1.0-4.0 [facility] Comment on above: Performed By: #### 2 [id number] #### [facility] [address] [place] [address] Lymphocytes/100 WBC (Bld) 41.0 % Normal 14.0-50.0 [facility] Comment on above: Performed By: #### 2 [id number] #### [facility] [address] [place] [address] MCH (RBC) [Entitic mass] 26.5 pg Low 27.0-34.0 [facility] Comment on above: Performed By: #### 2 [id number] #### [facility] [address] [place] [address] MCHC (RBC) [Mass/Vol] 33.3 g/dL Normal 31.4-36.0 [facility] Comment on above: Performed By: #### 2 705508 #### [facility] [address] [place] [address] MCV (RBC) [Entitic vol] 79.6 fL Low 80.0-100.0 [facility] Comment on above: Performed By: #### 2 [id number] #### [facility] [address] [place] [address] Microcytes Ql (Bld) PRESENT Invalid Interpretation Code [facility] Comment on above: Performed By: #### 2 108074 #### [facility] [address] [place] [address] Monocytes (Bld) [#/Vol] 0.8 E9/L Normal 0.2-1.0 [facility] Comment on above: Performed By: #### 2 [id number] #### [facility] [address] [place] [address] Neutrophils (Bld) [#/Vol] 2.8 E9/L Invalid Interpretation Code [facility] Comment on above: Performed By: #### 2 [id number] #### [facility] [address] [place] [address] Platelet 185.0 E9/L Normal 150.0-500.0 [facility] Comment on above: Performed By: #### 2 847006 #### [facility] [address] [place] [address] Platelet mean volume (Bld) [Entitic vol] 8.9 fL Normal 6.4-10.8 [facility] Comment on above: Performed By: #### 2 [id number] #### [facility] [address] [place] [address] RBC (Bld) [#/Vol] 4.3 E12/L Normal 4.3-5.9 [facility] Comment on above: Performed By: #### 2 [id number] #### [facility] [address] [place] [address] RBC size Nom (Bld) SEE MORPHOLOGY Invalid Interpretation Code [facility] Comment on above: Performed By: #### 2 [id number] #### [facility] [address] [place] [address] Segmented neutrophils/100 WBC (Bld) 23.0 % Low 36.0-75.0 [facility] Comment on above: Performed By: #### 2 [id number] #### [facility] [address] [place] [address] Variant lymphocytes/100 WBC (Bld) 27.0 % High 0.0-0.0 [facility] Comment on above: Performed By: #### 2 [id number] #### [facility] [address] [place] [address] WBC corrected for nucl RBC Auto (Bld) [#/Vol] 11.5 E9/L High 4.0-11.0 [facility] Comment on above: Performed By: #### 2 [id number] #### [facility] [address] [place] [address] CHEMISTRYOrdered By: SYSTEM SYSTEM on 10-15-2024 Lactic [...] Sensitivity Troponin I Instructions For Use, Candido [place], April 2018) Urea nitrogen [Mass/Vol] 19 mg/dL Normal 5 - 21 mg/dL Remisol Chem Urea nitrogen/Creatinine [Mass ratio] 24 mg/mg High 10 - 20 Remisol Chem CKon 10-15-2024 Total CK 86 Int._Unit/L Normal 14-261 [facility] Comment on above: Performed By: #### 2 [id number] #### [facility] [address] [place] [address] COAGULATIONOrdered By: Serena Jackson on 10-15-2024 aPTT Coag (PPP) [Time] 36.9 s High 25.1 - 36.5 second(s) [facility] Auto Coag Comment on above: Interpretive Data: Herber cabrera 15 days - 4 weeks 1 - 5 months 6 - 11 months 1 - 5 years 6 - 10 years 11 - 17 years PTT Mean: 35.4 (27.6-45.6) Mean: 33.5 (24.8-40.7) Mean: 32.4 (25.1-40.7) Mean: 31.6 (24.0-39.2) Mean: 31.6 (26.9-38.7) Mean: 31.0 (24.6-38.4) Pediatric Reference ranges were obtained from a study by vania Kc alGerri prepared from 1437 samples obtained at 7 different centers using the same coagulation reagent and instrumentation as [facility]. Currently there are no coagulation studies available worldwide for children to 14 days, and no normal ranges. Heparin therapeutic range (represented by Anti-Factor Xa activity of 0.2 - 0.4 U/mL) corresponds to PTT of 56.6 - 109.0 sec. INR Coag (PPP) [Relative time] 0.94 {INR} Invalid Interpretation Code [facility] Comment on above: Interpretive Data: I NR results are specifically intended to assess patients stabilized on long-term Anticoagulation therapy suggested INR s Less Intensive Anticoagulation 2.0 3.0 Conventional Range 3.0 4.5 PT Coag (PPP) [Time] 10.5 s Normal 9.4 - 1 2.5 second(s) [facility] Comment on above: Interpretive Data: 1 5 days - 4 weeks 1 - 5 months 6 -11 months 1-5 years 6-10 years 11 -17 years Mean: 11.2 (9.5-12.6) Mean: 11.0 (9.7-12.8) Mean: 11.0 (9.8-13.0) Mean: 11.3 (9.9-13.4) Mean: 11.7 (10.0-14.6) Mean: 11.8 (10.0 - 14.1) Pediatric Reference ranges were obtained from a study by jim Kc prepared from 1437 samples obtained at 7 different centers using the same coagulation reagent and instrumentation as [facility]. Currently there are no coagulation studies available worldwide for children to 14 days, and no normal ranges. COVID-19 Detected/Not Detect edOrdered By: Elfego Muniz on 10-15-2024 SARS-CoV-2 (COVID-19) RNA ELMO+non-probe Ql (Nph) Not detected Not Detecte [facility] Comment on above: This is a [...] MD Transcribed by: ANTONIO Technologist: JEREMI Rebollar [facility] CT Chest w/ Contraston 10-15 CT [...] MD Transcribed by: ANTONIO Technologist: JEREMI James [facility] CT Head or Brain w/o Contras ton [...] MD Transcribed by: ANTONIO Technologist: JEREMI Normal [facility] CT Maxillofacial w/o Contras ton [...] MD Transcribed by: ANTONIO Technologist: JEREMI Normal [facility] CT Spine Cervical w/o Contra [...] FINAL REPORT Dictated: 10/15/2024 2:13 pm Ruslan Kairmi MD Signed (Electronic Signature): 10/15/2024 2:13 pm Signed by: Ruslan Karimi MD Transcribed by: ANTONIO Technologist: JEREMI Normal [facility] Cannabinoids [Presence] in U rine by Screen methodOrdered By: Elfego Muniz on 10-15-2024 Cannabinoids Screen Ql (U) Cannabinoids [Presence] in Urine by Screen method Negative [facility] Comment on above: These are unconfirme d results and should not be used for legal purposes. Drug Cut-Off Concentration: AMPH 1000 ng/mL ANASTASIA 200 ng/mL JUAN DANIEL 200 ng/mL COCM 300 ng/mL OP 300 ng/mL PCP 25 ng/mL THC 20 ng/mL Color Auto (U)Ordered By: Fr jose Muniz on 10-15-2024 Color (U) Color of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 Kerr MCHC (RBC) [Mass/Vol] 32.0 g/dL Normal 29.9-35.2 [facility] Comment on above: Performed By: #### C BC #### [facility] [address] [place] [address] Dr. Hemanth Kerr MCV (RBC) [Entitic vol] 86.9 fL Normal 81.0-99.0 [facility] Comment on above: Performed By: #### C BC #### [facility] [address] [place] [address] Dr. Hemanth Kerr MONO # 0.4 103/ul Normal 0.3-0.8 [facility] Comment on above: Performed By: #### C BC #### [facility] [address] [place] [address] Dr. Hemanth Kerr Monocytes/100 WBC (Bld) 8.0 % Normal 1.7-12.0 [facility] Comment on above: Performed By: #### C BC #### [facility] [address] [place] [address] Dr. Hemanth Kerr NEUT # 3.1 103/ul Normal 1.4-6.5 [facility] Comment on above: Performed By: #### C BC #### [facility] [address] [place] [address] Dr. Hemanth Kerr Neutrophils/100 WBC (Bld) 56.5 % Normal 43.0-75.0 [facility] Comment on above: Performed By: #### C BC #### [facility] [address] [place] [address] Dr. Hemanth Kerr Platelet mean volume (Bld) [Entitic vol] 10.3 fL Normal 9.5-13.5 [facility] Comment on above: Performed By: #### C BC #### [facility] [address] [place] [address] Dr. Hemanth Kerr PLT 258 103/ul Normal 150-450 [facility] Comment on above: Performed By: #### C BC #### [facility] [address] [place] [address] Dr. Hemanth Kerr RBC 4.28 106/ul Normal 4.20-5.40 [facility] Comment on above: Performed By: #### C BC #### [facility] [address] [place] [address] Dr. Hemanth Kerr WBC 5.4 103/ul Normal 4.0-11.0 [facility] Comment on above: Performed By: #### C BC #### [facility] [address] [place] [address] Dr. Hemanth Kerr PROF 14(COMP METB)on 023 Albumin [Mass/Vol] 3.1 g/dL Critically low 3.4-5.0 [facility] Comment on above: Performed By: #### C MP #### [facility] [address] [place] [address] Dr. Hemanth Kerr Albumin/Globulin [Mass ratio] 1.3 {ratio} Normal [facility] Comment on above: Performed By: #### C MP #### [facility] [address] [place] [address] Dr. Hemanth Kerr ALP [Catalytic activity/Vol] 56 U/L Normal 46-116 [facility] Comment on above: Performed By: #### C MP #### [facility] [address] [place] [address] Dr. Hemanth Kerr ALT [Catalytic activity/Vol] 34 U/L Normal 14-59 [facility] Comment on above: Performed By: #### C MP #### [facility] [address] [place] [address] Dr. Hemanth Kerr Anion gap [Moles/Vol] 7.0 mmol/L Normal [facility] Comment on above: Performed By: #### C MP #### [facility] [address] [place] [address] Dr. Hemanth Kerr AST [Catalytic activity/Vol] 29 U/L Normal 15-37 [facility] Comment on above: Performed By: #### C MP #### [facility] [address] [place] [address] Dr. Hemanth Kerr Bilirubin [Mass/Vol] 0.4 mg/dL Normal 0.2-1.0 [facility] Comment on above: Performed By: #### C MP #### [facility] [address] [place] [address] Dr. Hemanth Kerr Calcium [Mass/Vol] 8.3 mg/dL Critically low 8.5-10.1 [facility] Comment on above: Performed By: #### C MP #### [facility] [address] [place] [address] Dr. Hemanth Kerr Chloride [Moles/Vol] 110 mmol/L Critically high 98-107 [facility] Comment on above: Performed By: #### C MP #### [facility] [address] [address] [address] Hemanth Kerr CO2 [Moles/Vol] 27.6 mmol/L Normal 21.0-32.0 [facility] Comment on above: Performed By: #### C MP #### [facility] [address] [address] [address] Hemanth Kerr Creatinine [Mass/Vol] 0.61 mg/dL Normal 0.55-1.02 [facility] Comment on above: Performed By: #### C MP #### [facility] [address] [address] [address] Hemanth Kerr EGFR-AF [place]ORE[place] >60 Normal >=60 [facility] Comment on above: Performed By: #### C MP #### [facility] [address] [place] [address] Dr. Hemanth Kerr EGFR-NON AF [place] >60 Normal >=60 [facility] Comment on above: Performed By: #### C MP #### [facility] [address] [place] [address] Dr. Hemanth Kerr Globulin (S) [Mass/Vol] 2.4 g/dL Normal [facility] Comment on above: Performed By: #### C MP #### [facility] [address] [place] [address] Dr. Hemanth Kerr Glucose [Mass/Vol] 110 mg/dL Critically high 74-106 [facility] Comment on above: Performed By: #### C MP #### [facility] [address] [place] [address] Dr. Hemanth Kerr Potassium [Moles/Vol] 2.6 mmol/L Critically low 3.5-5.1 [facility] Comment on above: Performed By: #### C MP #### [facility] [address] [place] [address] Dr. Hemanth Kerr Protein [Mass/Vol] 5.5 g/dL Critically low 6.4-8.2 [facility] Comment on above: Performed By: #### C MP #### [facility] [address] [address] [address] Hemanth Kerr Sodium [Moles/Vol] 142 mmol/L Normal 136-145 [facility] Comment on above: Performed By: #### C MP #### [facility] [address] [place] [address] Dr. Hemanth Kerr Urea nitrogen [Mass/Vol] 12.0 mg/dL Normal 7.0-18.0 [facility] Comment on above: Performed By: #### C MP #### [facility] [address] [place] [address] Dr. Hemanth Kerr Urea nitrogen/Creatinine [Mass ratio] 19.7 mg/mg Normal [facility] Comment on above: Performed By: #### C MP #### [facility] [address] [place] [address] Dr. Hemanth Kerr XR HIP LT 2 [...] ALIX GRANADOS Date: 2022-11-28 22:13 Normal [facility] ACETAMINOPHENon 11-28-2022 Acetaminophen [Mass/Vol] ug/mL Critically low 10.0-30.0 [facility] Comment on above: Performed By: #### C MP #### [facility] [address] [place] [address] Dr. Hemanth Kerr ACETONE SERUMon 11-28-2022 ACETONE Negative Normal NEGATIVE [facility] Comment on above: Performed By: #### P REG #### [facility] [address] [place] [address] Dr. Hemanth Kerr AMMONIAon 11-28-2022 Ammonia (P) [Moles/Vol] 24 umol/L Normal 11-32 [facility] Comment on above: Performed By: #### L ACT #### [facility] [address] [place] [address] Dr. Hemanth Kerr CBC AUTO DIFFon 11-28-2022 BASO # 0.0 103/ul Normal 0.0-0.1 [facility] Comment on above: Performed By: #### L ACT #### [facility] [address] [address] [address] Hemanth Kerr Basophils/100 WBC (Bld) 0.4 % Normal 0.2-2.0 [facility] Comment on above: Performed By: #### L ACT #### [facility] [address] [address] [address] Hemanth Kerr EO # 0.3 103/ul Normal 0.0-0.7 [facility] Comment on above: Performed By: #### L ACT #### [facility] [address] [place] [address] Dr. Hemanth Kerr Eosinophils/100 WBC (Bld) 3.1 % Normal 0.9-7.0 [facility] Comment on above: Performed By: #### L ACT #### [facility] [address] [place] [address] Dr. Hemanth Kerr Erythrocyte distribution width (RBC) [Ratio] 14.3 % Normal 11.0-15.0 [facility] Comment on above: Performed By: #### L ACT #### [facility] [address] [place] [address] Dr. Hemanth Kerr Hematocrit (Bld) [Volume fraction] 41.3 % Normal 36.0-48.0 [facility] Comment on above: Performed By: #### L ACT #### [facility] [address] [place] [address] Dr. Hemanth Kerr Hemoglobin (Bld) [Mass/Vol] 13.3 g/dL Normal 12.0-16.0 [facility] Comment on above: Performed By: #### L ACT #### [facility] [address] [place] [address] Dr. Hemanth Kerr IG # 0.02 10e3/ul Normal 0.00-0.03 [facility] Comment on above: Performed By: #### L ACT #### [facility] [address] [place] [address] Dr. Hemanth Kerr IG % 0.2 % Normal 0.0-0.5 [facility] Comment on above: Performed By: #### L ACT #### [facility] [address] [place] [address] Dr. Hemanth Kerr LYMPH # 2.4 103/ul Normal 1.2-3.8 [facility] Comment on above: Performed By: #### L ACT #### [facility] [address] [place] [address] Dr. Hemanth Kerr Lymphocytes/100 WBC (Bld) 26.3 % Normal 20.5-60.0 [facility] Comment on above: Performed By: #### L ACT #### [facility] [address] [place] [address] Dr. Hemanth Kerr MANUAL DIFF REQ NO Normal [facility] Comment on above: Performed By: #### L ACT #### [facility] [address] [place] [address] Dr. Hemanth Kerr MCH (RBC) [Entitic mass] 27.4 pg Normal 26.7-34.0 [facility] Comment on above: Performed By: #### L ACT #### [facility] [address] [place] [address] Dr. Hemanth Kerr MCHC (RBC) [Mass/Vol] 32.2 g/dL Normal 29.9-35.2 [facility] Comment on above: Performed By: #### L ACT #### [facility] [address] [place] [address] Dr. Hemanth Kerr MCV (RBC) [Entitic vol] 85.0 fL Normal 81.0-99.0 [facility] Comment on above: Performed By: #### L ACT #### [facility] [address] [place] [address] Dr. Hemanth Kerr MONO # 0.7 103/ul Normal 0.3-0.8 [facility] Comment on above: Performed By: #### L ACT #### [facility] [address] [place] [address] Dr. Hemanth Kerr Monocytes/100 WBC (Bld) 7.3 % Normal 1.7-12.0 [facility] Comment on above: Performed By: #### L ACT #### [facility] [address] [place] [address] Dr. Hemanth Kerr NEUT # 5.7 103/ul Normal 1.4-6.5 [facility] Comment on above: Performed By: #### L ACT #### [facility] [address] [place] [address] Dr. Hemanth Kerr Neutrophils/100 WBC (Bld) 62.7 % Normal 43.0-75.0 [facility] Comment on above: Performed By: #### L ACT #### [facility] [address] [place] [address] Dr. Hemanth Kerr Platelet mean volume (Bld) [Entitic vol] 10.6 fL Normal 9.5-13.5 [facility] Comment on above: Performed By: #### L ACT #### [facility] [address] [place] [address] Dr. Hemanth Kerr PLT 347 103/ul Normal 150-450 [facility] Comment on above: Performed By: #### L ACT #### [facility] [address] [place] [address] Dr. Hemanth Kerr RBC 4.86 106/ul Normal 4.20-5.40 [facility] Comment on above: Performed By: #### L ACT #### [facility] [address] [place] [address] Dr. Hemanth Kerr WBC 9.1 103/ul Normal 4.0-11.0 [facility] Comment on above: Performed By: #### L ACT #### [facility] [address] [place] [address] CSPINE WO CONon 3 CT CSPINE WO CON EXAMINATION: CT CSPI [...] KAMILLA MILLS Date: 2022-11-28 17:54 Normal [facility] CT HEAD WO CONon 11-28-2022 CT HEAD [...] KAMILLA MILLS Date: 2022-11-28 18:40 Normal [facility] CULTURE BLOODon 11-28-2022 Microscopic examination of blood, culture Culture Observations: NO GROWTH AT 5 DAYS. Normal [facility] Comment on above: Performed By: #### C BC #### [facility] [address] [place] [address] Dr. Hemanth Kerr Microscopic examination of blood, culture Culture Observations: NO GROWTH AT 5 DAYS. Normal [facility] Comment on above: Performed By: #### B [id number] #### [facility] [address] [place] [address] Dr. Hemanth Kerr Covid-19 PCR ([facility])on 11-15 SARS-CoV-2 (COVID-19) RNA ELMO+probe Ql (Unsp spec) Not detected Normal NOT DETECTED [facility] Comment on above: Result Comment: When diagnostic [...] for this test is supported by the Sales Representative Supervisor of Health and Human Service's declaration [...] used). Performed By: #### L ACT #### [facility] [address] [place] [address] Dr. Hemanth Kerr DRUG SCREEN RAPID (URINE)on 11-28-2022 AMP Positive Abnormal NEGATIVE [facility] Comment on above: Performed By: #### P REG #### [facility] [address] [place] [address] Dr. Hemanth Kerr BAR Negative Normal NEGATIVE [facility] Comment on above: Performed By: #### P REG #### [facility] [address] [place] [address] Dr. Hemanth Kerr BUP Negative Normal NEGATIVE [facility] Comment on above: Performed By: #### P REG #### [facility] [address] [place] [address] Dr. Hemanth Kerr BZO Negative Normal NEGATIVE [facility] Comment on above: Performed By: #### P REG #### [facility] [address] [place] [address] Dr. Hemanth Kerr YOLANDA Negative Normal NEGATIVE [facility] Comment on above: Performed By: #### P REG #### [facility] [address] [place] [address] Dr. Hemanth Kerr CUT-OFFS SEE BELOW Normal [facility] Comment on above: Result Comment: [...] ng/mL Performed By: #### P REG #### [facility] [address] [place] [address] Dr. Hemanth Kerr DRUG CUT HEADER DRUG CLASS TEST SYST EM CUT-OFF CONCENTRATIONS ARE FOLLOWS: Normal [facility] Comment on above: Performed By: #### P REG #### [facility] [address] [place] [address] Dr. Hemanth Kerr mAMP Positive Abnormal NEGATIVE [facility] Comment on above: Performed By: #### P REG #### [facility] [address] [place] [address] Dr. Hemanth Kerr MTD Negative Normal NEGATIVE [facility] Comment on above: Performed By: #### P REG #### [facility] [address] [place] [address] Dr. Hemanth Kerr OPI Negative Normal NEGATIVE [facility] Comment on above: Performed By: #### P REG #### [facility] [address] [place] [address] Dr. Hemanth Kerr OXY Negative Normal NEGATIVE [facility] Comment on above: Performed By: #### P REG #### [facility] [address] [place], [place] [id number] Dr. Hemanth Kerr PCP Negative Normal NEGATIVE [facility] Comment on above: Performed By: #### P REG #### [facility] [address] [place] [address] Dr. Hemanth Kerr PPX Negative Normal NEGATIVE [facility] Comment on above: Performed By: #### P REG #### [facility] [address] [place] [address] Dr. Hemanth Kerr TCA Negative Normal NEGATIVE [facility] Comment on above: Performed By: #### P REG #### [facility] [address] [place] [address] Dr. Hemanth Kerr THC Negative Normal NEGATIVE [facility] Comment on above: Performed By: #### P REG #### [facility] [address] [place] [address] Dr. Hemanth Kerr ER URINE PROFILEon 3 Bilirubin Ql (U) Negative Normal NEGATIVE [facility] Comment on above: Performed By: #### P REG #### [facility] [address] [place] [address] Dr. Hemanth Kerr Clarity (U) CLEAR Normal CLEAR [facility] Comment on above: Performed By: #### P REG #### [facility] [address] [place] [address] Dr. Hemanth Kerr Color (U) LT. YELLOW Normal YELLOW [facility] Comment on above: Performed By: #### P REG #### [facility] [address] [place] [address] Dr. Hemanth Kerr ERUAHD A micrscopic examina tion will be performed if indicated. Normal [facility] Comment on above: Performed By: #### P REG #### [facility] [address] [place] [address] Dr. Hemanth Kerr Glucose Ql (U) Negative Normal NEGATIVE [facility] Comment on above: Performed By: #### P REG #### [facility] [address] [place] [address] Dr. Hemanth Kerr Hemoglobin Ql (U) Negative Normal NEGATIVE [facility] Comment on above: Performed By: #### P REG #### [facility] [address] [place] [address] Dr. Hemanth eKrr Ketones Ql (U) Negative Normal NEGATIVE [facility] Comment on above: Performed By: #### P REG #### [facility] [address] [place] [address] Dr. Hemanth Kerr LEUKOCYTES Negative Normal NEGATIVE [facility] Comment on above: Performed By: #### P REG #### [facility] [address] [place] [address] Dr. Hemanth Kerr Nitrite Ql (U) Positive Abnormal NEGATIVE [facility] Comment on above: Performed By: #### P REG #### [facility] [address] [place] [address] Dr. Hemanth Kerr pH (U) 7.5 [pH] Normal 5-9 [facility] Comment on above: Performed By: #### P REG #### [facility] [address] [place] [address] Dr. Hemanth Kerr SPEC GRAVITY 1.020 Normal 1.005-<=1.02 5 [facility] Comment on above: Performed By: #### P REG #### [facility] [address] [place] [address] Dr. Hemanth Kerr UA PROTEIN TRACE Normal NEGATIVE/ TRACE [facility] Comment on above: Performed By: #### P REG #### [facility] [address] [place] [address] Dr. Hemanth Kerr UR MICRO IND INDICATED Normal [facility] Comment on above: Performed By: #### P REG #### [facility] [address] [place] [address] Dr. Hemanth Kerr Urobilinogen Qn (U) 1.0 {Jose'U}/dL Normal 0.2 - 1. 0 [facility] Comment on above: Performed By: #### P REG #### [facility] [address] [place] [address] Dr. Hemanth Kerr ETHANOL (BLD ALC)on 11-29-19 ALC NOTE NOTE: 80 mg/dl is th e legal limit for a blood alcohol level Normal [facility] Comment on above: Performed By: #### C MP #### [facility] [address] [address] [address] Hemanth Kerr Ethanol [Mass/Vol] mg/dL Normal [facility] Comment on above: Performed By: #### C MP #### [facility] [address] [address] [address] Hemanth Kerr LACTATE/LACTIC ACIDon 2022 Lactate [Moles/Vol] 0.7 mmol/L Normal 0.4-2.0 [facility] Comment on above: Performed By: #### L ACT #### [facility] [address] [place] [address] Dr. Hemanth Kerr Lactate [Moles/Vol] 9.0 mmol/L Critically high 0.4-2.0 [facility] Comment on above: Performed By: #### L ACT #### [facility] [address] [place] [address] Dr. Hemanth Kerr PH VENOUS BLOODon 11-28-2022 PCO2 VENOUS 36.6 mmHg Critically low 40.0-52.0 [facility] Comment on above: Performed By: #### P HVEN #### [facility] [address] [place] [address] Dr. Hemanth Kerr pH VENOUS 7.354 Normal 7.330-7.430 [facility] Comment on above: Performed By: #### P HVEN #### [facility] [address] [place] [address] Dr. Hemanth Kerr POINT OF CARE GLUCOSEon 11-15 Glucose [Mass/Vol] 127 mg/dL Critically high 74-106 [facility] Comment on above: Performed By: #### C BC #### [facility] [address] [place] [address] Dr. Hemanth Kerr PREG HCG QUALon 11-28-2022 , QUAL Negative Normal NEGATIVE [facility] Comment on above: Performed By: #### P REG #### [facility] [address] [place] [address] Dr. Hemanth Kerr PROF 14(COMP METB)on 03-14-2 023 Albumin [Mass/Vol] 3.7 g/dL Normal 3.4-5.0 [facility] Comment on above: Performed By: #### L ACT #### [facility] [address] [place] [address] Dr. Hemanth Kerr Albumin/Globulin [Mass ratio] 1.3 {ratio} Normal [facility] Comment on above: Performed By: #### L ACT #### [facility] [address] [place] [address] Dr. Hemanth Kerr ALP [Catalytic activity/Vol] 72 U/L Normal 46-116 [facility] Comment on above: Performed By: #### L ACT #### [facility] [address] [place] [address] Dr. Hemanth Kerr ALT [Catalytic activity/Vol] 42 U/L Normal 14-59 [facility] Comment on above: Performed By: #### L ACT #### [facility] [address] [place] [address] Dr. Hemanth Kerr Anion gap [Moles/Vol] 16.3 mmol/L Normal [facility] Comment on above: Performed By: #### L ACT #### [facility] [address] [place] [address] Dr. Hemanth Kerr AST [Catalytic activity/Vol] 45 U/L Critically high 15-37 [facility] Comment on above: Performed By: #### L ACT #### [facility] [address] [place] [address] Dr. Hemanth Kerr Bilirubin [Mass/Vol] 0.4 mg/dL Normal 0.2-1.0 [facility] Comment on above: Performed By: #### L ACT #### [facility] [address] [place] [address] Dr. Hemanth Kerr Calcium [Mass/Vol] 8.8 mg/dL Normal 8.5-10.1 [facility] Comment on above: Performed By: #### L ACT #### [facility] [address] [place] [address] Dr. Hemanth Kerr Chloride [Moles/Vol] 107 mmol/L Normal 98-107 [facility] Comment on above: Performed By: #### L ACT #### [facility] [address] [address] [address] Hemanth Kerr CO2 [Moles/Vol] 21.8 mmol/L Normal 21.0-32.0 [facility] Comment on above: Performed By: #### L ACT #### [facility] [address] [address] [address] Hemanth Kerr Creatinine [Mass/Vol] 1.32 mg/dL Critically high 0.55-1.02 [facility] Comment on above: Performed By: #### L ACT #### [facility] [address] [address] [address] Hemanth Kerr EGFR-AF [place]ORE[place] 58 mL/min/1.73m2 Critically low >=60 [facility] Comment on above: Performed By: #### L ACT #### [facility] [address] [address] [address] Hemanth Kerr EGFR-NON AF [place] 48 mL/min/1.73m2 Critically low >=60 [facility] Comment on above: Performed By: #### L ACT #### [facility] [address] [address] [address] Hemanth Kerr Globulin (S) [Mass/Vol] 2.9 g/dL Normal [facility] Comment on above: Performed By: #### L ACT #### [facility] [address] [address] [address] Hemanth Kerr Glucose [Mass/Vol] 143 mg/dL Critically high 74-106 [facility] Comment on above: Performed By: #### L ACT #### [facility] [address] [address] [address] Hemanth Kerr Potassium [Moles/Vol] 3.1 mmol/L Critically low 3.5-5.1 [facility] Comment on above: Performed By: #### L ACT #### [facility] [address] [address] [address] Hemanth Kerr Protein [Mass/Vol] 6.6 g/dL Normal 6.4-8.2 [facility] Comment on above: Performed By: #### L ACT #### [facility] [address] [place] [address] Dr. Hemanth Kerr Sodium [Moles/Vol] 142 mmol/L Normal 136-145 [facility] Comment on above: Performed By: #### L ACT #### [facility] [address] [place] [address] Dr. Hemanth Kerr Urea nitrogen [Mass/Vol] 17.0 mg/dL Normal 7.0-18.0 [facility] Comment on above: Performed By: #### L ACT #### [facility] [address] [place] [address] Dr. Hemanth Kerr Urea nitrogen/Creatinine [Mass ratio] 12.9 mg/mg Normal [facility] Comment on above: Performed By: #### L ACT #### [facility] [address] [place] [address] Dr. Hemanth Kerr PROTIMEon 11-28-2022 INR Coag (PPP) [Relative time] 0.97 {INR} Normal [facility] Comment on above: Performed By: #### P T, PTT #### [facility] [address] [place] [address] Dr. Hemanth Kerr INR GUIDELINES SEE BELOW Normal [facility] Comment on above: Result Comment: CHAN RED INR: 2.0 - 3.0 CONDITIONS NOT LISTED BELOW 2.5 - 3.5 FOR PROSTHETIC HEART VALVE REPLACEMENT 2.5 - 3.5 RECURRENT THROMBOSIS Performed By: #### P T, PTT #### [facility] [address] [place] [address] Dr. Hemanth Kerr PT Coag (PPP) [Time] 10.3 s Normal 9.0-11.6 [facility] Comment on above: Performed By: #### P T, PTT #### [facility] [address] [place] [address] Dr. Hemanth Kerr PTTon 11-28-2022 aPTT Coag (Bld) [Time] 25.4 s Normal 22.3-36.2 Th [facility] Comment on above: Performed By: #### P T, PTT #### [facility] [address] [place] [address] Dr. Hemanth Kerr SALICYLATEon 11-28-2022 SALICYLATE <2.8 Normal <=19.9 [facility] Comment on above: Performed By: #### C MP #### [facility] [address] [place] [address] Dr. Hemanth Kerr TROPONIN, HIGH SENSITIVITYon 11-28-2022 HSTROP 4.2 pg/mL Normal 4.0-51.3 [facility] Comment on above: Result Comment: CUT- OFF POINTS HAVE BEEN ESTABLISHED BASED ON THE FOURTH UNIVERSAL DEFINITIONS OF MYOCARDIAL INFARCTION. THE UPPER REFERENCE LIMIT (URL) OF TROPONIN, DEFINED THE 99TH PERCENTILE OF cTnI DISTRIBUTION IN A REFERENCE POPULATION, HAS BEEN CONFIRMED THE DECISION THRESHOLD FOR [place] DIAGNOSIS. Performed By: #### C MP #### [facility] [address] [place] [address] Dr. Hemanth Kerr TSHon 11-28-2022 TSH 3.476 uIU/mL Normal 0.358-3.740 [facility] Comment on above: Performed By: #### L ACT #### [facility] [address] [place] [address] Dr. Hemanth Kerr URINE MICROSCOPIC ONLYon BACTERIA LARGE Abnormal NONE SEEN [facility] Comment on above: Performed By: #### P REG #### [facility] [address] [place] [address] Dr. Hemanth Kerr Bacteria identified Cx Nom (U) INDICATED Normal [facility] Comment on above: Performed By: #### P REG #### [facility] [address] [place] [address] Dr. Hemanth Kerr CAST SEEN Abnormal NONE SEEN [facility] Comment on above: Performed By: #### P REG #### [facility] [address] [place] [address] Dr. Hemanth Kerr COARSE GRANULAR CAST RARE Normal [facility] Comment on above: Performed By: #### P REG #### [facility] [address] [place] [address] Dr. Hemanth Kerr Crystals LM Nom (Urine sed) NONE SEEN Normal NONE SEEN [facility] Comment on above: Performed By: #### P REG #### [facility] [address] [place] [address] Dr. Hemanth Kerr Epithelial cells LM Ql (Urine sed) RARE Normal NONE SEEN /RARE [facility] Comment on above: Performed By: #### P REG #### [facility] [address] [place] [address] Dr. Hemanth Kerr MUCOUS NONE SEEN Normal NONE SEEN [facility] Comment on above: Performed By: #### P REG #### [facility] [address] [place] [address] Dr. Hemanth Kerr RBC 0-2 Normal 0-2 [facility] Comment on above: Performed By: #### P REG #### [facility] [address] [place] [address] Dr. Hemanth Kerr WBC 2-5 Abnormal NONE SEEN [facility] Comment on above: Performed By: #### P REG #### [facility] [address] [place] [address] Dr. Hemanth Kerr XR CHEST 1 Von [...] KAMILLA MILLS Date: 2022-11-28 17:39 Normal [facility] CULTURE URINEon 10-13-2022 CULTURE URINE Isolate [...] F Trimethoprim/Sulfamethoxa zole >=320 R F Normal [facility] Comment on above: Performed By: #### U RCX #### [facility] [address] [place] [address] Dr. Hemanth Kerr CBC AUTO DIFFon 10-11-2022 BASO # 0.0 103/ul Normal 0.0-0.1 [facility] Comment on above: Performed By: #### C BC #### [facility] [address] [place] [address] Dr. Hemanth Kerr Basophils/100 WBC (Bld) 0.3 % Normal 0.2-2.0 [facility] Comment on above: Performed By: #### C BC #### [facility] [address] [place] [address] Dr. Hemanth Kerr EO # 0.0 103/ul Normal 0.0-0.7 [facility] Comment on above: Performed By: #### C BC #### [facility] [address] [place] [address] Dr. Hemanth Kerr Eosinophils/100 WBC (Bld) 0.4 % Critically low 0.9-7.0 [facility] Comment on above: Performed By: #### C BC #### [facility] [address] [place] [address] Dr. Hemanth Kerr Erythrocyte distribution width (RBC) [Ratio] 12.2 % Normal 11.0-15.0 [facility] Comment on above: Performed By: #### C BC #### [facility] [address] [place] [address] Dr. Hemanth Kerr Hematocrit (Bld) [Volume fraction] 38.6 % Normal 36.0-48.0 [facility] Comment on above: Performed By: #### C BC #### [facility] [address] [place] [address] Dr. Hemanth Kerr Hemoglobin (Bld) [Mass/Vol] 12.0 g/dL Normal 12.0-16.0 [facility] Comment on above: Performed By: #### C BC #### [facility] [address] [place] [address] Dr. Hemanth Kerr IG # 0.07 10e3/ul Critically high 0.00-0.03 [facility] Comment on above: Performed By: #### C BC #### [facility] [address] [place] [address] Dr. Hemanth Kerr IG % 0.7 % Critically high 0.0-0.5 [facility] Comment on above: Performed By: #### C BC #### [facility] [address] [place] [address] Dr. Hemanth Kerr LYMPH # 1.2 103/ul Normal 1.2-3.8 [facility] Comment on above: Performed By: #### C BC #### [facility] [address] [place] [address] Dr. Hemanth Kerr Lymphocytes/100 WBC (Bld) 12.1 % Critically low 20.5-60.0 [facility] Comment on above: Performed By: #### C BC #### [facility] [address] [place] [address] Dr. Hemanth Kerr MANUAL DIFF REQ NO Normal [facility] Comment on above: Performed By: #### C BC #### [facility] [address] [place] [address] Dr. Hemanth Kerr MCH (RBC) [Entitic mass] 28.0 pg Normal 26.7-34.0 [facility] Comment on above: Performed By: #### C BC #### [facility] [address] [place] [address] Dr. Hemanth Kerr MCHC (RBC) [Mass/Vol] 31.1 g/dL Normal 29.9-35.2 [facility] Comment on above: Performed By: #### C BC #### [facility] [address] [place] [address] Dr. Hemanth Kerr MCV (RBC) [Entitic vol] 90.2 fL Normal 81.0-99.0 [facility] Comment on above: Performed By: #### C BC #### [facility] [address] [place] [address] Dr. Hemanth Kerr MONO # 0.7 103/ul Normal 0.3-0.8 [facility] Comment on above: Performed By: #### C BC #### [facility] [address] [place] [address] Dr. Hemanth Kerr Monocytes/100 WBC (Bld) 6.9 % Normal 1.7-12.0 [facility] Comment on above: Performed By: #### C BC #### [facility] [address] [place] [address] Dr. Hemanth Kerr NEUT # 8.1 103/ul Critically high 1.4-6.5 [facility] Comment on above: Performed By: #### C BC #### [facility] [address] [place] [address] Dr. Hemanth Kerr Neutrophils/100 WBC (Bld) 79.6 % Critically high 43.0-75.0 [facility] Comment on above: Performed By: #### C BC #### [facility] [address] [place] [address] Dr. Hemanth Kerr Platelet mean volume (Bld) [Entitic vol] 10.8 fL Normal 9.5-13.5 [facility] Comment on above: Performed By: #### C BC #### [facility] [address] [place] [address] Dr. Hemanth Kerr PLT 452 103/ul Critically high 150-450 [facility] Comment on above: Performed By: #### C BC #### [facility] [address] [place] [address] Dr. Hemanth Kerr RBC 4.28 106/ul Normal 4.20-5.40 [facility] Comment on above: Performed By: #### C BC #### [facility] [address] [place] [address] Dr. Hemanth Kerr WBC 10.1 103/ul Normal 4.0-11.0 [facility] Comment on above: Performed By: #### C BC #### [facility] [address] [address] ABD/PELVIS WO CONon [...] CHRISTINE SÁNCHEZ Date: 2022-10-11 14:45 Normal [facility] ER URINE PROFILEon 3 Bilirubin Ql (U) Negative Normal NEGATIVE [facility] Comment on above: Performed By: #### L ACT #### [facility] [address] [place] [address] Dr. Hemanth Kerr Clarity (U) CLEAR Normal CLEAR [facility] Comment on above: Performed By: #### L ACT #### [facility] [address] [address] [address] Hemanth Kerr Color (U) LT. YELLOW Normal YELLOW [facility] Comment on above: Performed By: #### L ACT #### [facility] [address] [place] [address] Dr. Hemanth Kerr ERUAHAbi A micrscopic examina tion will be performed if indicated. Normal [facility] Comment on above: Performed By: #### L ACT #### [facility] [address] [place] [address] Dr. Hemanth Kerr Glucose Ql (U) Negative Normal NEGATIVE [facility] Comment on above: Performed By: #### L ACT #### [facility] [address] [place] [address] Dr. Hemanth Kerr Hemoglobin Ql (U) LARGE Abnormal NEGATIVE [facility] Comment on above: Performed By: #### L ACT #### [facility] [address] [place] [address] Dr. Hemanth Kerr Ketones Ql (U) Negative Normal NEGATIVE [facility] Comment on above: Performed By: #### L ACT #### [facility] [address] [place] [address] Dr. Hemanth Kerr LEUKOCYTES SMALL Abnormal NEGATIVE [facility] Comment on above: Performed By: #### L ACT #### [facility] [address] [place] [address] Dr. Hemanth Kerr Nitrite Ql (U) Negative Normal NEGATIVE [facility] Comment on above: Performed By: #### L ACT #### [facility] [address] [place] [address] Dr. Hemanth Kerr pH (U) 6.5 [pH] Normal 5-9 [facility] Comment on above: Performed By: #### L ACT #### [facility] [address] [place] [address] Dr. Hemanth Kerr Protein (U) [Mass/Vol] 30 mg/dL Abnormal NEGAT IVAN/ TRACE [facility] Comment on above: Performed By: #### L ACT #### [facility] [address] [place] [address] Dr. Hemanth Kerr SPEC GRAVITY <=1.005 Abnormal 1.005-<=1.02 5 [facility] Comment on above: Performed By: #### L ACT #### [facility] [address] [place] [address] Dr. Hemanth Kerr UR MICRO IND INDICATED Normal [facility] Comment on above: Performed By: #### L ACT #### [facility] [address] [place] [address] Dr. Hemanth Kerr Urobilinogen Qn (U) 1.0 {Jose'U}/dL Normal 0.2 - 1. 0 [facility] Comment on above: Performed By: #### L ACT #### [facility] [address] [place] [address] Dr. Hemanth Kerr PREG HCG QUALon 10-11-2022 , QUAL Negative Normal NEGATIVE [facility] Comment on above: Performed By: #### P REG #### [facility] [address] [place] [address] Dr. Hemanth Kerr PROF CHEM 8 (BAS METB)on Anion gap [Moles/Vol] 9.4 mmol/L Normal [facility] Comment on above: Performed By: #### L ACT #### [facility] [address] [place] [address] Dr. Hemanth Kerr Calcium [Mass/Vol] 8.8 mg/dL Normal 8.5-10.1 [facility] Comment on above: Performed By: #### L ACT #### [facility] [address] [place] [address] Dr. Hemanth Kerr Chloride [Moles/Vol] 97 mmol/L Critically low 98-107 [facility] Comment on above: Performed By: #### L ACT #### [facility] [address] [place] [address] Dr. Hemanth Kerr CO2 [Moles/Vol] 32.4 mmol/L Critically high 21.0-32.0 [facility] Comment on above: Performed By: #### L ACT #### [facility] [address] [place] [address] Dr. Hemanth Kerr Creatinine [Mass/Vol] 0.65 mg/dL Normal 0.55-1.02 [facility] Comment on above: Performed By: #### L ACT #### [facility] [address] [address] [address] Hemanth Kerr EGFR-AF [place]ORE[place] >60 Normal >=60 [facility] Comment on above: Performed By: #### L ACT #### [facility] [address] [address] [address] Hemanth Kerr EGFR-NON AF [place]ORE[place] >60 Normal >=60 [facility] Comment on above: Performed By: #### L ACT #### [facility] [address] [address] [address] Hemanth Kerr Glucose [Mass/Vol] 117 mg/dL Critically high 74-106 [facility] Comment on above: Performed By: #### L ACT #### [facility] [address] [place] [address] Dr. Hemanth Kerr Potassium [Moles/Vol] 2.8 mmol/L Critically low 3.5-5.1 [facility] Comment on above: Performed By: #### L ACT #### [facility] [address] [address] [address] Hemanth Kerr Sodium [Moles/Vol] 135 mmol/L Critically low 136-145 Th [facility] Comment on above: Performed By: #### L ACT #### [facility] [address] [place] [address] Dr. Hemanth Kerr Urea nitrogen [Mass/Vol] 8.0 mg/dL Normal 7.0-18.0 [facility] Comment on above: Performed By: #### L ACT #### [facility] [address] [place] [address] Dr. Hemanth Kerr Urea nitrogen/Creatinine [Mass ratio] 12.3 mg/mg Normal [facility] Comment on above: Performed By: #### L ACT #### [facility] [address] [address] [address] Hemanth Kerr URINE MICROSCOPIC ONLYon BACTERIA SMALL Abnormal NONE SEEN [facility] Comment on above: Performed By: #### L ACT #### [facility] [address] [place] [address] Dr. Hemanth Kerr Bacteria identified Cx Nom (U) INDICATED Normal [facility] Comment on above: Performed By: #### L ACT #### [facility] [address] [place] [address] Dr. Hemanth Kerr CAST NONE SEEN Normal NONE SEEN [facility] Comment on above: Performed By: #### L ACT #### [facility] [address] [place] [address] Dr. Hemanth Kerr Crystals LM Nom (Urine sed) NONE SEEN Normal NONE SEEN [facility] Comment on above: Performed By: #### L ACT #### [facility] [address] [place] [address] Dr. Hemanth Kerr Epithelial cells LM Ql (Urine sed) FEW Abnormal NONE SEEN /RARE [facility] Comment on above: Performed By: #### L ACT #### [facility] [address] [place] [address] Dr. Hemanth Kerr MUCOUS NONE SEEN Normal NONE SEEN [facility] Comment on above: Performed By: #### L ACT #### [facility] [address] [place] [address] Dr. Hemanth Kerr RBC 0-2 Normal 0-2 [facility] Comment on above: Performed By: #### L ACT #### [facility] [address] [place] [address] Dr. Hemanth Kerr WBC 10-20 Abnormal NONE SEEN [facility] Comment on above: Performed By: #### L ACT #### [facility] [address] [place] [address] Dr. Hemanth Kerr PREG QUANT HCGon 09-12-2022 HCG QUANT 66 mIU/mL Normal [facility] Comment on above: Performed By: #### C MP #### [facility] [address] [place] [address] Dr. Hemanth Kerr HCG RANGE SEE BELOW Normal [facility] Comment on above: Result Comment: 5-50 0.2-1 WEEK 50-500 1-2 WEEKS 100-5,000 2-3 WEEKS 500-10,000 3-4 WEEKS 1,000-50,000 4-5 WEEKS 10,000-100,000 5-6 WEEKS 15,000-200,000 6-8 WEEKS 10,000-100,000 2-3 MONTHS Performed By: #### C MP #### [facility] [address] [place] [address] Dr. Hemanth Kerr CBC AUTO DIFFon 08-16-2022 BASO # 0.0 103/ul Normal 0.0-0.1 [facility] Comment on above: Performed By: #### L ACT #### [facility] [address] [place] [address] Dr. Hemanth Kerr Basophils/100 WBC (Bld) 0.6 % Normal 0.2-2.0 [facility] Comment on above: Performed By: #### L ACT #### [facility] [address] [place] [address] Dr. Hemanth Kerr EO # 0.1 103/ul Normal 0.0-0.7 [facility] Comment on above: Performed By: #### L ACT #### [facility] [address] [place] [address] Dr. Hemanth Kerr Eosinophils/100 WBC (Bld) 1.3 % Normal 0.9-7.0 [facility] Comment on above: Performed By: #### L ACT #### [facility] [address] [place] [address] Dr. Hemanth Kerr Erythrocyte distribution width (RBC) [Ratio] 12.0 % Normal 11.0-15.0 [facility] Comment on above: Performed By: #### L ACT #### [facility] [address] [place] [address] Dr. Hemanth Kerr Hematocrit (Bld) [Volume fraction] 35.6 % Critically low 36.0-48.0 [facility] Comment on above: Performed By: #### L ACT #### [facility] [address] [place] [address] Dr. Hemanth Kerr Hemoglobin (Bld) [Mass/Vol] 12.4 g/dL Normal 12.0-16.0 [facility] Comment on above: Performed By: #### L ACT #### [facility] [address] [place] [address] Dr. Hemanth Kerr IG # 0.02 10e3/ul Normal 0.00-0.03 [facility] Comment on above: Performed By: #### L ACT #### [facility] [address] [place] [address] Dr. Hemanth Kerr IG % 0.3 % Normal 0.0-0.5 [facility] Comment on above: Performed By: #### L ACT #### [facility] [address] [place] [address] Dr. Hemanth Kerr LYMPH # 1.9 103/ul Normal 1.2-3.8 [facility] Comment on above: Performed By: #### L ACT #### [facility] [address] [place] [address] Dr. Hemanth Kerr Lymphocytes/100 WBC (Bld) 27.5 % Normal 20.5-60.0 [facility] Comment on above: Performed By: #### L ACT #### [facility] [address] [place] [address] Dr. Hemanth Kerr MANUAL DIFF REQ NO Normal [facility] Comment on above: Performed By: #### L ACT #### [facility] [address] [place] [address] Dr. Hemanth Kerr MCH (RBC) [Entitic mass] 29.6 pg Normal 26.7-34.0 [facility] Comment on above: Performed By: #### L ACT #### [facility] [address] [place] [address] Dr. Hemanth Kerr MCHC (RBC) [Mass/Vol] 34.8 g/dL Normal 29.9-35.2 [facility] Comment on above: Performed By: #### L ACT #### [facility] [address] [place] [address] Dr. Hemanth Kerr MCV (RBC) [Entitic vol] 85.0 fL Normal 81.0-99.0 [facility] Comment on above: Performed By: #### L ACT #### [facility] [address] [place] [address] Dr. Hemanth Kerr MONO # 0.4 103/ul Normal 0.3-0.8 [facility] Comment on above: Performed By: #### L ACT #### [facility] [address] [address] [address] Hemanth Kerr Monocytes/100 WBC (Bld) 6.3 % Normal 1.7-12.0 [facility] Comment on above: Performed By: #### L ACT #### [facility] [address] [address] [address] Hemanth Kerr NEUT # 4.5 103/ul Normal 1.4-6.5 [facility] Comment on above: Performed By: #### L ACT #### [facility] [address] [place] [address] Dr. Hemanth Kerr Neutrophils/100 WBC (Bld) 64.0 % Normal 43.0-75.0 [facility] Comment on above: Performed By: #### L ACT #### [facility] [address] [place] [address] Dr. Hemanth Kerr Platelet mean volume (Bld) [Entitic vol] 10.6 fL Normal 9.5-13.5 [facility] Comment on above: Performed By: #### L ACT #### [facility] [address] [place] [address] Dr. Hemanth Kerr PLT 247 103/ul Normal 150-450 [facility] Comment on above: Performed By: #### L ACT #### [facility] [address] [address] [address] Hemanth Kerr RBC 4.19 106/ul Critically low 4.20-5.40 [facility] Comment on above: Performed By: #### L ACT #### [facility] [address] [place] [address] Dr. Hemanth Kerr WBC 7.0 103/ul Normal 4.0-11.0 [facility] Comment on above: Performed By: #### L ACT #### [facility] [address] [place] [address] Dr. Hemanth Kerr Covid-19 PCR (CVDTBH)on 07-20 SARS-CoV-2 (COVID-19) RNA ELMO+probe Ql (Unsp spec) Not detected Normal NOT DETECTED [facility] Comment on above: Result Comment: This test is not yet approved or cleared by the [place] FDA. When there are no FDA-approved or cleared tests available, and other criteria are met, FDA can make tests available under an emergency access mechanism called an Emergency Use Authorization (EUA). The EUA for this test is supported by the Sales Representative Supervisor of Health and Human Service's (HHS's) [...] SARS-CoV-2. Performed By: #### C MP #### [facility] [address] [place] [address] Dr. Hemanth Kerr PREG QUANT HCGon 08-16-2022 HCG QUANT 25676 mIU/mL Normal [facility] Comment on above: Performed By: #### P REG #### [facility] [address] [place] [address] Dr. Hemanth Kerr HCG RANGE SEE BELOW Normal [facility] Comment on above: Result Comment: 5-50 0.2-1 WEEK 50-500 1-2 WEEKS 100-5,000 2-3 WEEKS 500-10,000 3-4 WEEKS 1,000-50,000 4-5 WEEKS 10,000-100,000 5-6 WEEKS 15,000-200,000 6-8 WEEKS 10,000-100,000 2-3 MONTHS Performed By: #### P REG #### [facility] [address] [place] [address] Dr. Hemanth Kerr PREG QUANT HCGon 08-14-2022 HCG QUANT 80810 mIU/mL Normal [facility] Comment on above: Performed By: #### P REG #### [facility] [address] [place], [place] [address] Dr. Hemanth Kerr HCG RANGE SEE BELOW Normal [facility] Comment on above: Result Comment: 5-50 0.2-1 WEEK 50-500 1-2 WEEKS 100-5,000 2-3 WEEKS 500-10,000 3-4 WEEKS 1,000-50,000 4-5 WEEKS 10,000-100,000 5-6 WEEKS 15,000-200,000 6-8 WEEKS 10,000-100,000 2-3 MONTHS Performed By: #### P REG #### [facility] [address], [place] [address] Dr. Hemanth Kerr US PREG TVon 08-14-2022 [...] by: CHRISTINE SÁNCHEZ Date: 2022-08-14 16:22 Normal [facility] US PREG TVon 07-27-2022 US PREG [...] by: CHRISTINE SÁNCHEZ Date: 2022-07-27 17:04 Normal [facility] XR CHEST 1 Von 07-09-2022 XR [...] by: FELIX WEBB Date: 2022-07-09 12:06 Normal [facility] CNPNon 12-12-2021 MARIANON Telephone (CHANDANA) ----- NOE DURAN ([id number]) 1995 F Date Time Provider Department 12/12/21 KING SUAZO During your visit today, we recorded the following information about you: Angelia Almazan 12/12/2021 11:16 AM Signed Pleases sign pending new cbc order. Thanks, Angelia Almazan MA Allergies As of Date: 12/12/2021 (No Known Allergies) Date Reviewed: 12/12/2021 Reviewed by: Jasmin Zuñiga APRN.HRIS MANAGER - Fully Assessed Reason for Visit: Lab Orders [1688] Primary Visit Diagnosis:Iron deficiency anemia, unspecified iron deficiency anemia type [D50.9] Order(s):CBC + DIFF [SQCBCDIF] Order #: [id number] FUTURE Prescriptions as of 12/12/2021 - gabapentin (NEURONTIN) 400 mg capsule Take by mouth. - Polysaccharide Iron Complex 180 mg iron cap Take by mouth. - aspirin 81 mg cap Take 81 mg by mouth once daily. - ONDANSETRON HCL ORAL Take 4 mg by mouth as needed. Problem List As Of Date: 12/12/2021 (None) Encounter Status:Closed by JASMIN ZUÑIGA on 12/12/21 [facility] Jerald 11-10-2021 CNPN Telephone (HEMAS[place]) ----- NOE DURAN ([id number]) 1995 F Date Time Provider Department 11/10/21 [...] B12 is slightly low. Options would be [id number] B12 tablets 2 mg daily or start a monthly injection. Thanks, MELANY De La O RN 11/10/2021 3:40 PM Signed Informed pt of Dr Suazo's message. Pt verbalized understanding and states TB told her only 2 doses of the IV iron are given so she does not need 3rd dose. LAMBERTO Kothari MD 11/10/2021 4:32 PM Signed Turns out she received Injectafer 750x2. Typically we do not give a third dose so okay not to receive. She should start oral or injectable B12 however. ThanksMELANY RN 11/10/2021 4:35 PM Signed Pt agreeable [...] by JENNYFER DE LA O on 11/10/21 [facility] CNOVSPon 11-08-2021 CNOVSP Visit (SP) Office (HE[place]ASA) ----- ARCADIONOE ([id number]) 1995 F Date Time Provider Department 11/08/21 [...] shortness of breath, and is seen at [facility] emergency room. Labs revealed a hemoglobin of [...] changes, r (more content not included)... Normal [facility] Comp Metabolic Panelon 11-08 Albumin [Mass/Vol] 3.6 g/dL Low 3.9-4.9 [facility] Comment on above: Performed By: #### S ERFOL, IRON, B12, FERR #### [facility] [address], [place] [address] ALP [Catalytic activity/Vol] 79 U/L Normal 34-123 [facility] Comment on above: Performed By: #### S ERFOL, IRON, B12, FERR #### [facility] [address], [place] [address] ALT [Catalytic activity/Vol] 8 U/L Normal 7-38 [facility] Comment on above: Performed By: #### S ERFOL, IRON, B12, FERR #### [facility] [address], [place] [address] Anion gap [Moles/Vol] 9 mmol/L Normal 9-18 [facility] Comment on above: Performed By: #### S ERFOL, IRON, B12, FERR #### [place] [address] [place] [address] AST [Catalytic activity/Vol] 13 U/L Normal 13-35 [facility] Comment on above: Performed By: #### S ERFOL, IRON, B12, FERR #### [place] [address] [place] [address] Bilirubin [Mass/Vol] 0.2 mg/dL Normal 0.2-1.3 [facility] Comment on above: Performed By: #### S ERFOL, IRON, B12, FERR #### [place] [address] Calcium [Mass/Vol] 9.3 mg/dL Normal 8.5-10.2 [facility] Comment on above: Performed By: #### S ERFOL, IRON, B12, FERR #### [place] [address] Chloride [Moles/Vol] 102 mmol/L Normal 97-105 [facility] Comment on above: Performed By: #### S ERFOL, IRON, B12, FERR #### [place] [address] CO2 [Moles/Vol] 23 mmol/L Normal 22-30 [facility] Comment on above: Performed By: #### S ERFOL, IRON, B12, FERR #### [place] [address] [place] [id number] Creatinine [Mass/Vol] 0.55 mg/dL Low 0.58-0.96 [facility] Comment on above: Performed By: #### S ERFOL, IRON, B12, FERR #### [place] [address] [place] [id number] eGFR- Amer. >60 Normal [facility] Comment on above: Performed By: #### S ERFOL, IRON, B12, FERR #### [facility] [address], [place] [address] eGFR-All Other Races >60 Normal [facility] Comment on above: Result Comment: eGFR (Estimated [...] #### S ERFOL, IRON, B12, FERR #### [facility] [address] [place] [id number] Glucose [Mass/Vol] 96 mg/dL Normal 74-99 [facility] Comment on above: Result Comment: The Citizen [place] Diabetes Association (ADA) provides guidance for cutoff [...] Standards of Medical Care in Diabetes 2016, [place] Diabetes Association. Diabetes Care. 2016.39(Suppl 1). Performed By: #### S ERFOL, IRON, B12, FERR #### [place] [address] [place] [address] Potassium [Moles/Vol] 3.3 mmol/L Low 3.7-5.1 [facility] Comment on above: Performed By: #### S ERFOL, IRON, B12, FERR #### [place] [address] Protein [Mass/Vol] 6.3 g/dL Normal 6.3-8.0 [facility] Comment on above: Performed By: #### S ERFOL, IRON, B12, FERR #### [place] [address] Sodium [Moles/Vol] 134 mmol/L Low 136-144 [facility] Comment on above: Performed By: #### S ERFOL, IRON, B12, FERR #### [place] [address] Urea nitrogen [Mass/Vol] 4 mg/dL Low 7-21 [facility] Comment on above: Performed By: #### S ERFOL, IRON, B12, FERR #### [place] [address] Ferritinon 11-08-2021 Ferritin [Mass/Vol] 203.0 ng/mL Normal 14.7-205.1 [facility] Comment on above: Performed By: #### S ERFOL, IRON, B12, FERR #### [place] [address] Folate, Serumon 11-08-2021 Folate [Mass/Vol] 8.5 ng/mL Normal >4.7 [facility] Comment on above: Performed By: #### S ERFOL, IRON, B12, FERR #### [place] [address] Iron and TIBCon 11-08-2021 Iron [Mass/Vol] 93 ug/dL Normal 41-186 [facility] Comment on above: Performed By: #### S ERFOL, IRON, B12, FERR #### [facility] [address] [place] [id number] TIBC 407 ug/dL High 232-386 [facility] Comment on above: Performed By: #### S ERFOL, IRON, B12, FERR #### [facility] [address], [place] [address] Transferrin Saturatn 23 % Normal 15-57 [facility] Comment on above: Performed By: #### S ERFOL, IRON, B12, FERR #### [facility] [address] [place] [id number] Remote CBCDIF (for [facility] use o nly)on 11-08-2021 Abs Baso <0.03 Normal <0.11 [facility] Abs Taney 0.57 k/uL Normal <0.87 [facility] Abs Neut 4.67 k/uL Normal 1.45-7.50 [facility] Absolute nRBC <0.01 Normal <0.01 [facility] Basophils/100 WBC (Bld) 0.3 % Normal [facility] DTYPE Auto Diff Normal [facility] Eosinophils (Bld) [#/Vol] 0.05 10*3/uL Normal <0.46 [facility] Eosinophils/100 WBC (Bld) 0.8 % Normal [facility] Erythrocyte distribution width (RBC) [Ratio] 29.9 % High 11.5-15.0 [facility] Hematocrit (Bld) [Volume fraction] 32.6 % Low 36.0-46.0 [facility] Hemoglobin (Bld) [Mass/Vol] 10.1 g/dL Low 11.5-15.5 [facility] Lymphocytes (Bld) [#/Vol] 1.25 10*3/uL Normal 1.00-4.00 [facility] Lymphocytes/100 WBC (Bld) 19.1 % Normal [facility] MCH 25.1 pG Low 26.0-34.0 [facility] MCHC (RBC) [Mass/Vol] 31.0 g/dL Normal 30.5-36.0 [facility] MCV (RBC) [Entitic vol] 81.1 fL Normal 80.0-100.0 [facility] Monocytes/100 WBC (Bld) 8.7 % Normal [facility] Neutrophils/100 WBC (Bld) 71.1 % Normal [facility] NRBCs 0.0 /100 WBC Normal 0 [facility] Platelet mean volume (Bld) [Entitic vol] 10.3 fL Normal 9.0-12.7 [facility] Platelets (Bld) [#/Vol] 223 10*3/uL Normal 150-400 [facility] Comment on above: Result Comment: Resu lt checked and verified Sample checked for a clot. RBC (Bld) [#/Vol] 4.02 10*6/uL Normal 3.90-5.20 [facility] WBC (Bld) [#/Vol] 6.56 10*3/uL Normal 3.70-11.00 [facility] Reticulocyteon 11-08-2021 Abs Retic 0.140 M/uL High 0.0180-0.100 0 [facility] Comment on above: Performed By: #### S ERFOL, IRON, B12, FERR #### [facility] [address], [place] [address] Retic% 3.5 % High 0.4-2.0 [facility] Comment on above: Performed By: #### S ERFOL, IRON, B12, FERR #### [facility] [address], [place] [address] Vitamin B12on 11-08-2021 Cobalamin (Vitamin B12) [Mass/Vol] 218 pg/mL Low 232-1245 [facility] Comment on above: Performed By: #### S ERFOL, IRON, B12, FERR #### [facility] [address], [place] [address] CBCon 04-26-2020 Erythrocyte distribution width (RBC) [Ratio] 14.7 % High 11.8 - 14.4 % [place] Hematocrit (Bld) [Volume fraction] 36.0 % Low 36.3 - 47.1 % [place] Hemoglobin (Bld) [Mass/Vol] 10.9 g/dL Low 11.9 - 15.1 g/dL [place] Interpretation and review of laboratory results Abnormal [place] MCH (RBC) [Entitic mass] 26.2 pg 25.2 - 33.5 pg [place] MCHC (RBC) [Mass/Vol] 30.3 g/dL 28.4 - 34.8 g/dL [place] MCV (RBC) [Entitic vol] 86.5 fL 82.6 - 102.9 fL [place] Platelet mean volume (Bld) [Entitic vol] 10.8 fL 8.1 - 13.5 fL [place] Platelets (Bld) [#/Vol] 328 10*3/uL [place] RBC (Bld) [#/Vol] 4.16 10*6/uL 3.95 - 5.1 1 m/uL [place] WBC (Bld) [#/Vol] 0.0 10*3/uL 0.0 per 10 0 WBC [place] WBC (Bld) [#/Vol] 5.7 10*3/uL [place] Comprehensive Metabolic Pane perez 04-26-2020 Albumin [Mass/Vol] 3.4 g/dL Low 3.5 - 5.2 g/dL [place] Albumin/Globulin [Mass ratio] 1.5 {ratio} [place] ALP [Catalytic activity/Vol] 40 U/L 35 - 104 U/L [place] ALT [Catalytic activity/Vol] 12 U/L 5 - 33 U/L [place] Anion gap [Moles/Vol] 9 mmol/L 9 - 17 mmol/L [place] AST [Catalytic activity/Vol] 12 U/L <32 [place] Bilirubin Ql (U) <0.10 Low 0.3 - 1.2 mg/dL [place] Bun/Cre Ratio 26 High [place] Calcium [Mass/Vol] 9.3 mg/dL 8.6 - 10. 4 mg/dL [place] Chloride [Moles/Vol] 109 mmol/L High 98 - 10 7 mmol/L [place] CO2 [Moles/Vol] 26 mmol/L 20 - 31 mmol/L [place] Creatinine [Mass/Vol] 0.57 mg/dL 0.5 - 0.9 mg/dL [place] GFR >60 >60 mL/min [place] GFR Non- >60 >60 mL/min [place] Glucose [Mass/Vol] 92 mg/dL 70 - 99 mg/dL [place] Interpretation and review of laboratory results Abnormal [place] Potassium [Moles/Vol] 3.8 mmol/L 3.7 - 5.3 mmol/L [place] Protein [Mass/Vol] 5.7 g/dL Low 6.4 - 8.3 g/dL [place] Sodium [Moles/Vol] 144 mmol/L 135 - 144 mmol/L [place] Urea nitrogen [Mass/Vol] 15 mg/dL 6 - 20 mg/dL [place] HCG Qualitative, Serumon hCG Qual Negative NEGATIVE [place] Comment on above: Specimens with hCG l evels near the threshold of the test (25 mIU/mL) may give a negative or indeterminate result. In such cases, another test should be performed with a new specimen in 48-72 hours. If early is suspected clinically in this setting, correlation with quantitative serum b-hCG level is suggested. [facility] the use of plasma for this test. This has not been cleared or approved by the U.S. Food and Drug Administration. The FDA has determined that such clearance is not necessary. HIV Screenon 04-26-2020 HIV Ag/Ab NONREACTIVE NONREACTIVE [place] Comment on above: No laboratory eviden ce of HIV infection. If acute HIV infection is suspected, consider testing for HIV-1 RNA. Hepatitis Panel, Acuteon HAV IgM IA Qn (S) NONREACTIVE NONREACTIVE [place] Hep B Core Ab, IgM NONREACTIVE NONREACTIVE [place] Hepatitis B Surface Ag NONREACTIVE NONREACTIVE [place] Hepatitis C Ab REACTIVE Abnormal NONREACTIVE [place] Comment on above: The hepatitis C [...] Interpretation and review of laboratory results Abnormal [place] Metabolic Panelon 04-26-2020 GFR/1.73 sq M predicted among non-blacks MDRD (S/P/Bld) [Vol rate/Area] [place] Comment on above: Stage 1: Some [...] body mass. Additional eGFR calculator available at: http://www.[employer].Delectable/multiple_crcl_2012.htm Microscopic Urinalysison Amorphous, UA NOT REPORTED None [place] Bacteria, UA NOT REPORTED None [place] Casts UA NOT REPORTED /LPF [place] Crystals, UA 5 TO 10 Abnormal None /HPF [place] Crystals, UA CALCIUM OXALATE Abnormal None /HPF [place] Epithelial Cells UA 0 TO 2 [place] Interpretation and review of laboratory results Abnormal [place] Mucus, UA TRACE Abnormal None [place] Other Observations UA NOT REPORTED NOT REQ. M [facility] [place] RBC (U) [#/Vol] None [facility] [place] Renal Epithelial, UA NOT REPORTED 0 /HPF Me [facility] [place] Trichomonas, UA NOT REPORTED None [facility] WBC, UA 0 TO 2 [facility] [place] Yeast, UA NOT REPORTED None [facility] [place] - [facility] Urinalysis Reflex to Culture on 04-26-2020 Bilirubin Urine Negative NEGATIVE [facility] Color, UA YELLOW YELLOW [facility] Glucose, Ur Negative NEGATIVE [facility] Interpretation and review of laboratory results Abnormal [facility] [place] Ketones Ql (U) Negative NEGATIVE [facility] Leukocyte esterase Test strip Ql (U) Negative NEGATIVE [facility] [place] Nitrite, Urine Negative NEGATIVE [facility] [place] pH, UA 6.5 [facility] Protein (U) [Mass/Vol] Negative NEGATIVE [facility] Specific [place], UA 1.025 High [facility] Turbidity UA CLEAR CLEAR [facility] [place] Urinalysis Comments NOT REPORTED [facility] Urine Hgb Negative NEGATIVE [facility] [place] Urobilinogen, Urine Normal Normal [facility] [place] ED Clinical Summaryon 2019 ED Clinical Summary (Inserted Image. Ritika ble to display) [address] [address] ED Clinical Summary Person Information Name: Kathryn Duran/[facility] Age: 25 Years : 1995 Sex: Female PCP: Marital Status: Single Phone: Race: White Ethnicity: Not or Language: Nepalese Visit Reason: Drug withdrawal; Drug withdrawal Acuity: 3 Enc Type: Emergency Med Service: Emergency Medicine Arrival: 03/16/2020 20:10:45 Discharge: 03/17/2020 02:12:00 LOS: 000 06:02 Checkin: 03/16/2020 20:10:45 Checkout: 03/17/2020 02:12:00 Dispo Type: Home or Self Care Address: [address] [place] [id number] Provider Notes: Diagnosis: 1:Affective disorder; 2:Drug usage [...] range between ( 27.2 and 40.8 ) [place] Auto: 11.4 % -- Normal range between [...] range between ( 36.0 and 46.0 ) [place] Absolute: 1.5 x10 MCH: 27.4 pg -- [...] ng/mL Ur Benzodia Scrn: Negative ng/mL Ur Anastasai Scrn: Negative ng/mL Ur Cocaine Scrn: Negative [...] 20:20:41 Follow up: With: Address: When: [facility] [place], [place] Within 1 to 2 days Discharge Orders: Discharge Patient 03/17/20 1:45:00 EDT, Discharge to Home, Self Patient Education Information: Understanding Methamphetamine Abuse and Addiction; Treating Affective (Mood) Disorders [facility] Poison Help line: . [facility] Health Hotline: [place] Tobacco Quit Line: [place], [place]) [address]: [phone] [place], [place]) [address]: [phone] [facility] [address] [place], [place]: [phone] Normal [facility] hCG Quantitativeon 0 Beta hCG Qnt 1.7 mIU/mL Normal 0.0-4.9 [facility] Comment on above: Result Comment: 0.0 - 4.9 Negative for 5.0 - 25.0 Indeterminant for : Suggest repeat in 72 hours. >25.0 Positive for Performed By: #### H CG ####[address] [address] .UA Microscp Aon 03-16-2020 UA Hyline Cast Qual >20 Abnormal Negative [facility] Comment on above: Performed By: #### C [id number] ####[address] [address] UA Mucus Present Abnormal Absent [facility] Comment on above: Performed By: #### C [id number] ####[address] [address] UA RBC Quant 12 /HPF High 0-5 [facility] Comment on above: Performed By: #### C [id number] ####[address] [address] UA Squepi Cells Quant 6 /HPF Normal 0-29 [facility] Comment on above: Performed By: #### C [id number] ####[address] [address] UA WBC Quant 7 /HPF High 0-5 [facility] Comment on above: Performed By: #### C [id number] ####[address] [address] .eGFRon 03-16-2020 eGFR AA 52 mL/min/1.73m? Low >=60 [facility] Comment on above: Result Comment: Resu lt = 0-14.9 mL/min/1.73 m2 Kidney failure or Dialysis Result = 15-29 mL/min/1.73 m2 Severe decrease in GFR Result = 30-59 mL/min/1.73 m2 Moderate decrease in GFR Result >= 60 mL/min/1.73 m2 Normal or increased GFR Performed By: #### E GFR #### [place] [id number] eGFR Non-AA 43 mL/min/1.73m? Low >=60 [facility] [...] dosing. Performed By: #### E GFR #### [place] [id number] CBC w/ Diffon 03-16-2020 Erythrocyte distribution width (RBC) [Ratio] 15.9 % High 11.6-14.8 [facility] Comment on above: Performed By: #### C BC #### [place] [id number] Hematocrit (Bld) [Volume fraction] 37.5 % Normal 36.0-46.0 [facility] Comment on above: Performed By: #### C BC #### [address] [address] Hemoglobin (Bld) [Mass/Vol] 12.5 g/dL Normal 12.0-16.0 [facility] Comment on above: Performed By: #### C BC #### [address] [address] MCH (RBC) [Entitic mass] 27.4 pg Normal 27.0-35.0 [facility] Comment on above: Performed By: #### C BC #### [address] [address] MCHC (RBC) [Mass/Vol] 33.2 % Normal 31.0-37.0 [facility] Comment on above: Performed By: #### C BC #### [address] [address] MCV (RBC) [Entitic vol] 82.4 fL Normal 80.0-100.0 [facility] Comment on above: Performed By: #### C BC #### [address] [address] Platelet mean volume (Bld) [Entitic vol] 9.4 fL Normal 6.7-10.6 [facility] Comment on above: Performed By: #### C BC #### [address] [address] Platelets (Bld) [#/Vol] 307 x10*3/mcL Normal 150-350 [facility] Comment on above: Performed By: #### C BC #### [address] [address] RBC (Bld) [#/Vol] 4.55 x10*6/mcL Normal 3.80-5.20 [facility] Comment on above: Performed By: #### C BC #### [address] [address] WBC (Bld) [#/Vol] 12.9 x10*3/mcL High 4.5-11.0 [facility] Comment on above: Performed By: #### C BC #### [address] [address] CMPon 03-16-2020 Albumin [Mass/Vol] 5.2 g/dL High 3.2-4.9 [facility] Comment on above: Result Comment: [facility] Laboratory updated the methodology used for albumin testing on 04/24/18. Albumin measurement was performed using a bromcresol purple dye-binding assay. Performed By: #### C OMP #### [address] [address] Albumin/Globulin [Mass ratio] 1.5 {ratio} Normal 1.1-2.2 [facility] Comment on above: Performed By: #### C OMP #### [address] [address] Alk Phos 47 IU/L Normal 32-91 [facility] Comment on above: Performed By: #### C OMP #### [address] [address] ALT [Catalytic activity/Vol] 19 U/L Normal 14-54 [facility] Comment on above: Performed By: #### C OMP #### [address] [address] Anion gap [Moles/Vol] 22 mmol/L High 7-17 [facility] Comment on above: Performed By: #### C OMP #### [address] [address] AST [Catalytic activity/Vol] 31 U/L Normal 15-41 [facility] Comment on above: Performed By: #### C OMP #### [address] [address] Bili Total 1.4 mg/dL High 0.3-1.2 [facility] Comment on above: Performed By: #### C OMP #### [address] [address] Calcium [Mass/Vol] 10.2 mg/dL Normal 8.5-10.3 [facility] Comment on above: Performed By: #### C OMP #### [address] [place] [address] Chloride [Moles/Vol] 100 mmol/L Normal 98-110 [facility] Comment on above: Performed By: #### C OMP #### [address] [place] [address] CO2 [Moles/Vol] 19 mmol/L Low 22-32 [facility] Comment on above: Performed By: #### C OMP #### [address] [place] [address] Creatinine [Mass/Vol] 1.47 mg/dL High 0.44-1.03 [facility] Comment on above: Performed By: #### C OMP #### [address] [place] [address] Glucose [Mass/Vol] 85 mg/dL Normal 70-99 [facility] Comment on above: Performed By: #### C OMP #### [address] [address] Potassium [Moles/Vol] 3.7 mmol/L Normal 3.4-4.8 [facility] Comment on above: Performed By: #### C OMP #### [address] [address] Protein [Mass/Vol] 8.7 g/dL High 6.5-8.1 [facility] Comment on above: Performed By: #### C OMP #### [address] [address] Sodium [Moles/Vol] 137 mmol/L Normal 133-142 [facility] Comment on above: Performed By: #### C OMP #### [address] [address] Urea nitrogen [Mass/Vol] 25 mg/dL Normal 8-26 [facility] Comment on above: Performed By: #### C OMP #### [address] [address] Urea nitrogen/Creatinine [Mass ratio] 17.0 mg/mg Normal 10.0-20.0 [facility] Comment on above: Performed By: #### C OMP #### [address] [address] CPKon 03-16-2020 Creatine Phosphokinase 439 IU/L High 38-234 [facility] Comment on above: Performed By: #### C P #### [address] [address] Diff Autoon 03-16-2020 Baso Absolute 0.0 x10*3/mcL Normal 0.0-0.2 [facility] Comment on above: Performed By: #### . Automated Diff #### [address] [address] Basophils/100 WBC (Bld) 0.4 % Normal 0.0-1.5 [facility] Comment on above: Performed By: #### . Automated Diff #### [address] [address] Eos Absolute 0.0 x10*3/mcL Normal 0.0-0.4 [facility] Comment on above: Performed By: #### . Automated Diff #### [address] [address] Eosinophils/100 WBC (Bld) 0.1 % Normal 0.0-5.4 [facility] Comment on above: Performed By: #### . Automated Diff #### [address] [address] Lymphocytes (Bld) [#/Vol] 1.4 x10*3/mcL Normal 1.0-4.8 [facility] Comment on above: Performed By: #### . Automated Diff #### [address] [address] Lymphocytes/100 WBC (Bld) 10.8 % Low 27.2-40.8 [facility] Comment on above: Performed By: #### . Automated Diff #### [address] [address] Taney Absolute 1.5 x10*3/mcL High 0.1-1.1 [facility] Comment on above: Performed By: #### . Automated Diff #### [facility] [address] [place] [address] Monocytes/100 WBC (Bld) 11.4 % Normal 3.7-11.9 [facility] Comment on above: Performed By: #### . Automated Diff #### [place] [id number] [place] [address] Neutro Absolute 10.0 x10*3/mcL High 1.8-7.7 [facility] Comment on above: Performed By: #### . Automated Diff #### [place] [address] [place] [address] Neutro Auto 77.3 % High 47.2-70.8 [facility] Comment on above: Performed By: #### . Automated Diff #### [place] [address] [place] [address] ED Note-Nursingon 03-16-2020 ED Note-Nursing Lab called about add ons Electronically signed by Barbara Holman 03/16/20 20:49 EDT Normal [facility] [facility] ED Note-Physicianon 03-16-20 ED Note-Physician [...] that she has residential set up at [facility] in [place], [place] but she has to detox first. [...] She was seen by Alonso, social media content manager who has arranged for her to go to [facility] tomorrow as patient is interested in treatment. Verbally contracted to safety and filled out a safety plan. Alonso with social work spoke with biostatistics director, Jelena who will arrange for further follow-up when they arrive tomorrow. Family is agreeable with plan. Patient has good support. They will return if any changes of symptoms or concern. Silvia Castañeda scribing for and in the presence of Dr. Cornell. Scribe Attestation: The information in this document, created by the medical laboratory technician for me, accurately reflects the services [...] 20:39 37.5 MCV 03/16/20 20:39 82.4 MCH 06/30/20 20:39 27.4 MCHC 03/16/20 20:39 33.2 RDW 03/16/20 20:39 15.9 High Platelet 03/16/20 20:39 307 Mean Platelet Volume 03/16/20 20:39 9.4 Neutro Auto 03/16/20 20:39 77.3 High Lymph Auto 03/16/20 20:39 10.8 Low Taney Auto 03/16/20 20:39 11.4 Eos Auto 03/16/20 20:39 0.1 Basophil Auto 03/16/20 20:39 0.4 Neutro Absolute 03/16/20 20:39 10.0 High Lymph Absolute 03/16/20 20:39 1.4 Taney Absolute 03/16/20 20:39 1.5 High Eos Absolute [...] Lima Cornell MD 03/17/2020 04:16 EDT Normal [facility] Ethanolon 03-16-2020 Ethanol [Mass/Vol] mg/dL Normal <=9 [facility] Comment on above: Result Comment: To c onvert mg/dL to g/dL, divide result by 1,000. Legal limit of intoxication is 80 mg/dL (0.08 g/dL). Performed By: #### A LC #### [address] [address] UA w Culture if Indon 2019 Color (U) Terri Normal [facility] Comment on above: Performed By: #### U CI #### [address] [address] Glucose (U) [Mass/Vol] Negative Normal Negative [facility] Comment on above: Performed By: #### U CI #### [address] [address] Ketones Ql (U) 20 mg/dL Abnormal Negative [facility] Comment on above: Performed By: #### U CI #### [address] [address] UA Blood Small Abnormal Negative [facility] Comment on above: Performed By: #### U CI #### [address] [address] UA Clarity Cloudy Normal [facility] Comment on above: Performed By: #### U CI #### [address] [address] UA Leukocyte Esterase Trace Abnormal Negative [facility] Comment on above: Performed By: #### U CI #### [address] [address] UA Nitrite Negative Normal Negative [facility] Comment on above: Performed By: #### U CI #### [address] [address] UA pH 5.0 Normal 4.5 - 7.8 [facility] Comment on above: Performed By: #### U CI #### [address] [address] UA Protein 100 mg/dL Abnormal Negative [facility] Comment on above: Performed By: #### U CI #### [address] [address] UA Source Clean Catch Normal [facility] Comment on above: Performed By: #### U CI #### [address] [address] UA Spec Grav 1.025 Normal 1.003-1.035 [facility] Comment on above: Performed By: #### U CI #### [address] [address] UA Urobilinogen 0.2 mg/dL Normal 0.2 - 1.0 [facility] Comment on above: Performed By: #### U CI #### [address] [address] Urobilinogen Qn (U) Small Abnormal Negative [facility] Comment on above: Performed By: #### U CI #### [address] [address] UDS Compon 03-16-2020 Creatinine [Mass/Vol] mg/dL Normal [facility] Comment on above: Performed By: #### C [id number] #### [address] [address] Ur Amph Scrn Positive Abnormal NEG = <1000 [facility] Comment on above: Result Comment: This unconfirmed positive screening result is to be used for medical treatment purposes only. Unconfirmed screening results must not be used for non-medical purposes. (e.g. employment testing, legal testing). Performed By: #### C [id number] #### [address] [address] Ur Anastasia Scrn Negative Normal NEG = <200 [facility] Comment on above: Performed By: #### C [id number] #### [address] [address] Ur Benzodia Scrn Negative Normal NEG = <200 [facility] Comment on above: Performed By: #### C [id number] #### [address] [address] Ur Cannab Scrn Negative Normal NEG = <50 [facility] Comment on above: Performed By: #### C [id number] #### [address] [address] Ur Cocaine Scrn Negative Normal NEG = <300 [facility] Comment on above: Performed By: #### C [id number] #### [address] [address] Ur Methadone Scn Negative Normal NEG = <300 [facility] Comment on above: Performed By: #### C [id number] #### [address] [address] Ur Opiate Scrn Negative Normal NEG = <300 [facility] Comment on above: Performed By: #### C [id number] #### [address] [place] [address] Ur Oxy Screen Negative Normal NEG = <100 [facility] Comment on above: Performed By: #### C [id number] #### [address] [place] [address] Ur Oxy Scrn Qnt 54 ng/mL Normal <=99 [facility] Comment on above: Performed By: #### C [id number] #### [address] [address] Ur PCP Scrn Negative Normal NEG = <25 [facility] Comment on above: Performed By: #### C [id number] #### [address] [address] UA pH 5.0 Normal 4.5 - 7.8 [facility] Comment on above: Performed By: #### C [id number] #### [facility] [address] [place] [address] UA Spec Grav 1.024 Normal 1.003-1.035 [facility] Comment on above: Performed By: #### C [id number] #### [facility] [address] [place] [address] HIV Screenon 11-21-2019 HIV Ag/Ab NONREACTIVE NONREACTIVE [place] Comment on above: No laboratory eviden ce of HIV infection. If acute HIV infection is suspected, consider testing for HIV-1 RNA. HCG, Quantitative, on 11-20-2019 hCG Quant [id number] High <5 IU/L [place] Comment on above: Non-preg premeno <=5 Postmeno <=8 Male <=3 If HCG results do not concur with clinical observations, additional testing to confirm results is recommended. Elevated results not associated with may be found in patients with other diseases such as tumors of the germ cells (testis, ovaries, etc.), bladder, pancreas, stomach, lungs, and liver. Interpretation and review of laboratory results Abnormal [place] Hepatitis C Antibodyon 11-19 Hepatitis C Ab REACTIVE Abnormal NONREACTIVE [place] Comment on above: The hepatitis C [...] Interpretation and review of laboratory results Abnormal [place] TYPE AND SCREENon 0 11-20-2019 ABO/Rh Positive [place] Urine Drug Screen, Comprehen siveon 11-20-2019 Amphetamine Screen, Ur Negative NEGATIVE [place] Barbiturate Screen, Ur Negative NEGATIVE [place] Benzodiazepine Screen, Urine Negative NEGATIVE [place] Buprenorphine Urine Negative NEGATIVE [place] Cannabinoid Scrn, Ur Negative NEGATIVE [place] Cocaine Metabolite, Urine Negative NEGATIVE [place] MDMA, Urine NOT REPORTED NEGATIVE [place] Methadone Screen, Urine Negative NEGATIVE [place] Methamphetamine, Urine Negative NEGATIVE [place] Opiates, Urine Negative NEGATIVE [place] Oxycodone Screen, Ur Negative NEGATIVE [place] Phencyclidine, Urine Negative NEGATIVE [place] Propoxyphene, Urine Negative NEGATIVE [place] Test Information NOT REPORTED [place] Tricyclic Antidepressants, Urine Negative NEGATIVE [place] Comment on above: Drug screen results are to be used for medical purposes only. All positive results are unconfirmed. Testing for employment or legal uses should be sent to a reference laboratory for confirmation. HCG, Quantitative, on 06-19-2019 hCG Quant [id number] High <5 IU/L [place] Comment on above: Non-preg premeno <=5 Postmeno <=8 Male <=3 If HCG results do not concur with clinical observations, additional testing to confirm results is recommended. Elevated results not associated with may be found in patients with other diseases such as tumors of the germ cells (testis, ovaries, etc.), bladder, pancreas, stomach, lungs, and liver. Interpretation and review of laboratory results Abnormal [place] HIV Screenon 06-19-2019 HIV Ag/Ab NONREACTIVE NONREACTIVE [place] Comment on above: No laboratory eviden ce of HIV infection. If acute HIV infection is suspected, consider testing for HIV-1 RNA. Hepatitis C Antibodyon 06-19 Hepatitis C Ab REACTIVE Abnormal NONREACTIVE [place] Comment on above: The hepatitis C [...] Interpretation and review of laboratory results Abnormal [place] PROFILE Ion 019 Basophils (Bld) [#/Vol] 10*3/uL [place] Basophils/100 WBC (Bld) 1 % 0 - 2 % [place] Differential Type NOT REPORTED [place] Eosinophils (Bld) [#/Vol] 0.09 10*3/uL [place] Eosinophils/100 WBC (Bld) 2 % 1 - 4 % [place] Erythrocyte distribution width (RBC) [Ratio] 15.7 % High 11.8 - 14.4 % [place] Hematocrit (Bld) [Volume fraction] 36.5 % 36.3 - 47.1 % [place] Hemoglobin (Bld) [Mass/Vol] 11.2 g/dL Low 11.9 - 15.1 g/dL [place] Hepatitis B Surface Ag NONREACTIVE NONREACTIVE [place] Immature granulocytes (Bld) [#/Vol] 0 % 0 [place] Immature granulocytes (Bld) [#/Vol] 10*3/uL [place] Interpretation and review of laboratory results Abnormal [place] Lymphocytes (Bld) [#/Vol] 1.98 10*3/uL [place] Lymphocytes/100 WBC (Bld) 46 % High 24 - 43 % [place] MCH (RBC) [Entitic mass] 25.6 pg 25.2 - 33.5 pg [place] MCHC (RBC) [Mass/Vol] 30.7 g/dL 28.4 - 34.8 g/dL [place] MCV (RBC) [Entitic vol] 83.3 fL 82.6 - 102.9 fL [place] Monocytes (Bld) [#/Vol] 0.37 10*3/uL [place] Monocytes/100 WBC (Bld) 9 % 3 - 12 % [place] Platelet mean volume (Bld) [Entitic vol] 11.6 fL 8.1 - 13.5 fL [place] Platelets (Bld) [#/Vol] NOT REPORTED [place] Platelets (Bld) [#/Vol] 196 10*3/uL [place] RBC (Bld) [#/Vol] 4.38 10*6/uL 3.95 - 5.1 1 m/uL [place] RBC morphology finding Nom (Bld) NOT REPORTED [place] Rubella virus IgG Ql (S) 286.1 IU/mL [place] Comment on above: REFERENCE RANGE: <5.0 NON-REACTIVE (non-immune) 5.0 TO 9.9 EQUIVOCAL >=10.0 REACTIVE (immune) Segmented neutrophils/100 WBC (Bld) 42 % 36 - 65 % [place] Segs Absolute 1.75 [place] T. pallidum, IgG NONREACTIVE NONREACTIVE [place] Comment on above: T. pallidum antibodies are not detected. There is no serological evidence of infection with T. pallidum (early primary syphilis cannot be excluded). Retest in 2-4 weeks if syphilis is clinically suspect. WBC (Bld) [#/Vol] 4.2 10*3/uL [place] WBC (Bld) [#/Vol] 0.0 10*3/uL 0.0 per 10 0 WBC [place] WBC Morphology NOT REPORTED [place] TYPE AND SCREENon 1 ABO/Rh Positive [place] Urine Drug Screen, Comprehen siveon 06-19-2019 Amphetamine Screen, Ur Negative NEGATIVE [place] Barbiturate Screen, Ur Negative NEGATIVE [place] Benzodiazepine Screen, Urine Negative NEGATIVE [place] Buprenorphine Urine Negative NEGATIVE [place] Cannabinoid Scrn, Ur Negative NEGATIVE [place] Cocaine Metabolite, Urine Negative NEGATIVE [place] Interpretation and review of laboratory results Abnormal [place] MDMA, Urine NOT REPORTED NEGATIVE [place] Methadone Screen, Urine Negative NEGATIVE [place] Methamphetamine, Urine Negative NEGATIVE [place] Opiates, Urine Negative NEGATIVE [place] Oxycodone Screen, Ur Negative NEGATIVE [place] Phencyclidine, Urine Negative NEGATIVE [place] Propoxyphene, Urine Negative NEGATIVE [place] Test Information NOT REPORTED [place] Tricyclic Antidepressants, Urine Positive Abnormal NEGATIVE [place] Comment on above: Drug screen results are to be used for medical purposes only. All positive results are unconfirmed. Testing for employment or legal uses should be sent to a reference laboratory for confirmation. Comprehensive Metabolic Pane perez 05-09-2019 Albumin [Mass/Vol] 4.3 g/dL 3.5 - 5.2 g/dL [place] Albumin/Globulin [Mass ratio] 1.4 {ratio} [place] ALP [Catalytic activity/Vol] 50 U/L 35 - 104 U/L [place] ALT [Catalytic activity/Vol] 9 U/L 5 - 33 U/L [place] Anion gap [Moles/Vol] 8 mmol/L Low 9 - 17 mmol/L [place] AST [Catalytic activity/Vol] 15 U/L <32 [place] Bilirubin Ql (U) 0.31 mg/dL 0.3 - 1.2 mg/dL [place] Bun/Cre Ratio 20 [place] Calcium [Mass/Vol] 9.4 mg/dL 8.6 - 10. 4 mg/dL [place] Chloride [Moles/Vol] 102 mmol/L 98 - 10 7 mmol/L [place] CO2 [Moles/Vol] 28 mmol/L 20 - 31 mmol/L [place] Creatinine [Mass/Vol] 0.92 mg/dL High 0.5 - 0.9 mg/dL [place] GFR >60 >60 mL/min [place] GFR Non- >60 >60 mL/min [place] Glucose [Mass/Vol] 91 mg/dL 70 - 99 mg/dL [place] Interpretation and review of laboratory results Abnormal [place] Potassium [Moles/Vol] 4.3 mmol/L 3.7 - 5.3 mmol/L [place] Protein [Mass/Vol] 7.4 g/dL 6.4 - 8.3 g/dL [place] Sodium [Moles/Vol] 138 mmol/L 135 - 144 mmol/L [place] Urea nitrogen [Mass/Vol] 18 mg/dL 6 - 20 mg/dL [place] Hepatitis Panel, Acuteon HAV IgM IA Qn (S) NONREACTIVE NONREACTIVE [place] Hep B Core Ab, IgM NONREACTIVE NONREACTIVE [place] Hepatitis B Surface Ag NONREACTIVE NONREACTIVE [place] Hepatitis C Ab REACTIVE Abnormal NONREACTIVE [place] Comment on above: The hepatitis C [...] Interpretation and review of laboratory results Abnormal [place] Metabolic Panelon 05-09-2019 GFR/1.73 sq M predicted among non-blacks MDRD (S/P/Bld) [Vol rate/Area] [place] Comment on above: Average GFR for 20-2 9 years old: 116 mL/min/1.73sq m Chronic Kidney Disease: <60 mL/min/1.73sq m Kidney failure: <15 mL/min/1.73sq m eGFR calculated using average adult body mass. Additional eGFR calculator available at: http://www.[employer].Delectable/multiple_crcl_2012.htm Stage 1: Some kidney damage normal GFR Stage 2: Mild kidney damage GFR 60-89 Stage 3: Moderate kidney damage GFR 30-59 Stage 4: Severe kidney damage GFR 15-29 Stage 5: Severe kidney damage GFR <15 ESRD - chronic treatment by dialysis or transplant Drug Scr, Abuse, Uron 2017 Amphetamine(s),Ur Positive Abnormal NEG [facility] Comment on above: Result Comment: (Pos itive cutoff 1000 ng/mL) Performed By: #### D AU ####[facility], [place] [phone] Barbiturate(s),Ur Negative Normal NEG [facility] Comment on above: Result Comment: (Pos itive cutoff 200 ng/mL) Performed By: #### D AU ####[address] [address] Base excess Negative Normal NEG [facility] Comment on above: Result Comment: (Pos itive cutoff 300 ng/mL) Performed By: #### D AU ####[address] [address] Benzodiazepine(s) Negative Normal NEG [facility] Comment on above: Result Comment: (Pos itive cutoff 200 ng/mL) Performed By: #### D AU ####[address] [address] Cannabinoid(s),Ur Negative Normal NEG [facility] Comment on above: Result Comment: (Pos itive cutoff 50 ng/mL) Performed By: #### D AU ####[address] [address] Interpretive Info Assay provides medic al screening only. The absence of expected drug(s) and/or Normal [facility] Comment on above: Result Comment: meta bolite(s) may indicate diluted or adulterated urine, limitations of testing or timing of collection.Testing for legal purposes should be confirmed by another method. To request confirmation of test result, please call the lab within 7 days of sample submission.Performed at [facility] [address] [place] [address] Performed By: #### D AU ####[address] [address] Opiate(s), Ur Negative Normal NEG [facility] Comment on above: Result Comment: (Pos itive cutoff 300 ng/mL) Performed By: #### D AU ####[address] [place] [address] Oxycodone, Urine Negative Normal NEG [facility] Comment on above: Result Comment: (Pos itive cutoff 100 ng/mL) Performed By: #### D AU ####[address] [address] Phencyclidine, Ur Negative Normal NEG [facility] Comment on above: Result Comment: (Pos itive cutoff 25 ng/mL) Performed By: #### D AU ####[address] [address] Urine, methadone presence Negative Normal NEG [facility] Comment on above: Result Comment: (Pos itive cutoff 300 ng/mL) Performed By: #### D AU ####[address] [address] Buprenorphrine, Ur NOT REPORTED Normal NEG [facility] Comment on above: Performed By: #### D AU ####[facility] [place] [address] [place] [address] MDMA, Urine NOT REPORTED Normal NEG [facility] Comment on above: Performed By: #### D AU ####[address] [place] [address] Methamphetamine, Ur NOT REPORTED Normal NEG [facility] Comment on above: Performed By: #### D AU ####[address] [place] [address] Propoxyphene,Urine NOT REPORTED Normal NEG [facility] Comment on above: Performed By: #### D AU ####[address] [address] Urine, tricyclic antidepressants NOT REPORTED Normal NEG [facility] Comment on above: Performed By: #### D AU ####[facility] [place] [address] Lipid Profileon 11-05-2017 Cholesterol 137 mg/dL Normal <200 [facility] Comment on above: Result Comment: Chol esterol Guidelines: <200 Desirable 200-240 Borderline >240 Undesirable Performed By: #### L IPR ####[facility] [place] [address] Cholesterol to HDL Ratio 4.3 {ratio} Normal <5 [facility] Comment on above: Performed By: #### L IPR ####[address] [address] HDL Cholesterol 32 mg/dL Low >40 [facility] Comment on above: Result Comment: HDL Guidelines: <40 Undesirable 40-59 Borderline >59 Desirable Performed By: #### L IPR ####[address] [address] LDL Cholesterol 82 mg/dL Normal 0-130 [facility] Comment on above: Result Comment: LDL Guidelines: <100 Desirable 100-129 Near to/above Desirable 130-159 Borderline >159 UndesirableDirect (measured) LDL and calculated LDL are not interchangeable tests. Performed By: #### L IPR ####[address] [address] Triglyceride 113 mg/dL Normal <150 [facility] Comment on above: Result Comment: Trig lyceride Guidelines: <150 Desirable 150- 199 Borderline 200-499 High >499 Very high Based on AHA Guidelines for fasting triglyceride, June 2012.Performed at [facility] [address] [place] [address] Performed By: #### L IPR ####[address] [address] Cholesterol in VLDL mass conc NOT REPORTED Normal 1-30 [facility] Comment on above: Performed By: #### L IPR ####[facility] [place] [address] Vital Signs Date Time Vital Sign Value Performing Clinician Facility 06-08-2025 11:30-0400 Body weight 87.54 kg Yousif Markus DO Work Phone: [facility] 06-08-2025 11:30-0400 Diastolic blood pressure 72 mm[Hg] Yousif Markus DO Work Phone: [facility] 06-08-2025 11:30-0400 Systolic blood pressure 118 mm[Hg] Yousif Markus DO Work Phone: [facility] 05-20-2025 10:14-0400 Body weight 85.91 kg Mundo Woody [employer] Work Phone: [facility] 05-20-2025 10:14-0400 Diastolic blood pressure 70 mm[Hg] Mundo Woody [employer] Work Phone: [facility] 05-20-2025 10:14-0400 Systolic blood pressure 112 mm[Hg] Mundo Woody [employer] Work Phone: [facility] 05-06-2025 11:44-0400 Body weight 84.94 kg Yousif Markus DO Work Phone: [facility] 04-09-2025 10:03-0400 Body weight 83.12 kg Jody UREÑA Work Phone: [facility] 04-09-2025 10:03-0400 Diastolic blood pressure 64 mm[Hg] Jody UREÑA Work Phone: [facility] 04-09-2025 10:03-0400 Systolic blood pressure 112 mm[Hg] Jody UREÑA Work Phone: [facility] 03-11-2025 11:13-0400 Body weight 81.56 kg Yousif Markus DO Work Phone: [facility] 03-11-2025 11:13-0400 Diastolic blood pressure 70 mm[Hg] Yousif Markus DO Work Phone: [facility] 03-11-2025 11:13-0400 Systolic blood pressure 120 mm[Hg] Yousif Markus DO Work Phone: [facility] 01-19-2025 14:18-0400 Body weight 71.67 kg Yousif Markus DO Work Phone: [facility] 01-19-2025 14:18-0400 Diastolic blood pressure 70 mm[Hg] Yousif Markus DO Work Phone: [facility] 01-19-2025 14:18-0400 Systolic blood pressure 112 mm[Hg] Yousif Markus DO Work Phone: [facility] 01-01-2025 15:12-0400 Body weight 70.36 kg Noms Nurse [facility] 01-01-2025 15:12-0400 Diastolic blood pressure 64 mm[Hg] [facility] Nurse [facility] 01-01-2025 15:12-0400 Systolic blood pressure 110 mm[Hg] Nom Nurse [facility] 10-21-2024 07:30-0500 Body temperature 97.7 [degF] PHYSICIAN NO [facility] 10-21-2024 07:30-0500 Diastolic blood pressure 77 mm[Hg] PHYSICIAN NO [facility] 10-21-2024 07:30-0500 Heart rate 85 /min PHYSICIAN NO [facility] 10-21-2024 07:30-0500 Respiratory rate 16 /min PHYSICIAN NO [facility] 10-21-2024 07:30-0500 SaO2% (BldA) [Mass fraction] 98 % PHYSICIAN NO [facility] 10-21-2024 07:30-0500 Systolic blood pressure 120 mm[Hg] PHYSICIAN NO [facility] 10-20-2024 14:43-0500 Body height 167.64 cm PHYSICIAN NO [facility] 10-20-2024 09:00-0500 Body weight 56.2 kg PHYSICIAN NO [facility] 10-17-2024 17:00-0500 Diastolic blood pressure 70 mm[Hg] Rochelle Alvarado MD Work Phone: [facility] 10-17-2024 17:00-0500 Heart rate 81 /min Rochelle Alvarado MD Work Phone: [facility] 10-17-2024 17:00-0500 Respiratory rate 16 /min Rochelle Alvarado MD Work Phone: [facility] 10-17-2024 17:00-0500 SaO2% (BldA) [Mass fraction] 100 % Rochelle Alvarado MD Work Phone: [facility] 10-17-2024 17:00-0500 Systolic blood pressure 115 mm[Hg] Rochelle Alvarado MD Work Phone: [facility] 10-17-2024 12:00-0500 Body temperature 95.7 [degF] Rochelle Alvarado MD Work Phone: [facility] 10-17-2024 06:00-0500 Body weight 56.2 kg Rochelle Alvarado MD Work Phone: [facility] 10-16-2024 16:30-0500 Body height 170.18 cm Rochelle Alvarado MD Work Phone: [facility] 10-15-2024 20:45-0500 Diastolic blood pressure 89 mm[Hg] [facility] 10-15-2024 20:45-0500 Heart rate 101 /min [facility] 10-15-2024 20:45-0500 Mean blood pressure 102 mm[Hg] [facility] 10-15-2024 20:45-0500 Respiratory rate 14 /min [facility] 10-15-2024 20:45-0500 Systolic blood pressure 127 mm[Hg] [facility] 10-15-2024 20:00-0500 Heart rate 89 /min [facility] 10-15-2024 19:57-0500 Diastolic blood pressure 83 mm[Hg] [facility] 10-15-2024 19:57-0500 Heart rate 95 /min [facility] 10-15-2024 19:57-0500 Mean blood pressure 94 mm[Hg] [facility] 10-15-2024 19:57-0500 Respiratory rate 14 /min [facility] 10-15-2024 19:57-0500 SaO2% (BldA) [Mass fraction] 99 % [facility] 10-15-2024 19:57-0500 Systolic blood pressure 115 mm[Hg] [facility] 10-15-2024 19:00-0500 Diastolic blood pressure 85 mm[Hg] [facility] 10-15-2024 19:00-0500 Mean blood pressure 93 mm[Hg] [facility] 10-15-2024 19:00-0500 Systolic blood pressure 109 mm[Hg] [facility] 10-15-2024 18:30-0500 Respiratory rate 16 /min [facility] 10-15-2024 18:30-0500 SaO2% (BldA) [Mass fraction] 99 % [facility] 10-15-2024 17:02-0500 SaO2% (BldA) [Mass fraction] 99 % [facility] 10-15-2024 13:29-0500 Body temperature 97.7 [degF] [facility] 10-15-2024 13:29-0500 Heart rate 99 /min [facility] 10-15-2024 13:14-0500 Body temperature 97.7 [degF] [facility] 10-15-2024 13:14-0500 Heart rate 100 /min [facility] Encounters Encounter Date Encounter Type Care Provider Facility Start: 06-08-2025 End: 06-08-2025 Jese Aparicio DO Work Phone: [facility] Start: 06-08-2025 End: 06-08-2025 Bamboo flowsheet Yousif Balbuenao DO Work Phone: [facility] Start: 06-08-2025 End: 06-08-2025 Office outpatient visit 15 minutes Yousif Balbuenao DO Work Phone: [facility] Comment on above: Third trimester preg lynette ([facility]); 33 weeks gestation of ([facility]); Gestational diabetes mellitus (GDM) in third trimester, gestational diabetes method of control unspecified ([facility]); H/O pre-eclampsia in prior , currently ([facility]); H/O miscarriage, currently ([facility]) Start: 06-08-2025 End: 06-08-2025 ambulatory YOUSIF BALBUENAO Not Available Start: 05-21-2025 End: 05-26-2025 Clinisync Result Encounter Mundo Woody NP Work Phone: [facility]solicited Start: 05-21-2025 End: 05-26-2025 Clinisync Result Encounter Mundo Woody NP Work Phone: [facility] Unsolicited Start: 05-20-2025 End: 05-20-2025 Office outpatient visit 15 minutes Mundo Woody NP Work Phone: [facility] Comment on above: Diarrhea, unspecifie d type (Primary Dx); Third trimester ([facility]); 31 weeks gestation of ([facility]); Nausea and vomiting in ([facility]) Start: 05-20-2025 End: 05-20-2025 ambulatory MUNDO FARZANA Not Available Start: 05-08-2025 End: 05-08-2025 Clinisync Result Encounter Mundo Woody PANTS CUTTER Work Phone: [facility] Unsolicited Start: 05-08-2025 End: 05-08-2025 Clinisync Result Encounter Mundo Woody PANTS CUTTER Work Phone: [facility] Unsolicited Start: 05-06-2025 End: 05-06-2025 Bamboo flowsheet Yousif Markus DO Work Phone: [facility] Start: 05-06-2025 End: 05-06-2025 Bamboo flowsheet Yousif Markus DO Work Phone: [facility] Start: 05-06-2025 End: 05-06-2025 Office outpatient visit 15 minutes Yousif Markus DO Work Phone: [facility] Comment on above: Third trimester preg lynette ([facility]); 29 weeks gestation of ([facility]); size inconsistent with dates ([facility]); Low iron; Dizziness; Nausea Start: 05-06-2025 End: 05-06-2025 ambulatory YOUSIF MARKUS Not Available Start: 04-09-2025 End: 04-09-2025 Bamboo flowsheet Jody UREÑA Work Phone: [facility] Start: 04-09-2025 End: 04-09-2025 Bamboo flowsheet Jody UREÑA Work Phone: [facility] Start: 04-09-2025 End: 04-09-2025 Office outpatient visit 15 minutes Jody UREÑA Work Phone: [facility] Comment on above: Second trimester pre gnancy ([facility]); 25 weeks gestation of ([facility]) Start: 04-09-2025 End: 04-09-2025 ambulatory JODY KIMBLE Not Available Start: 04-01-2025 End: 04-01-2025 ambulatory YOUSIF MARKUS Not Available Start: 03-11-2025 End: 03-11-2025 Bamboo flowsheet Yousif Markus DO Work Phone: [facility] Start: 03-11-2025 End: 03-13-2025 Bamboo flowsheet Yousif Markus DO Work Phone: [facility] Start: 03-11-2025 End: 03-13-2025 Clinisync Result Encounter Yousif Markus DO Work Phone: [facility] Unsolicited Start: 03-11-2025 End: 03-12-2025 External Result Encounter Yousif Markus DO Work Phone: [facility]solicited Start: 03-11-2025 End: 03-11-2025 ambulatory YOUSIF MARKUS Not Available Start: 03-11-2025 End: 03-11-2025 Patient encounter procedure Yousif Markus DO Work Phone: [facility] Start: 03-11-2025 End: 03-11-2025 Periodic preventive med est patient 18-39 yrs Yousif Markus DO Work Phone: [facility] Comment on above: Screening, , for anatomic survey ([facility]); Well woman exam with routine gynecological exam; Exposure to STD; Vaginal discharge; 21 weeks gestation of ([facility]); Second trimester ([facility]); Nausea and vomiting, unspecified vomiting type Start: [...] End: 01-05-2025 Emergency department patient visit FABIAN LOMAS [facility] Start: 01-01-2025 End: 01-01-2025 Office outpatient visit 5 minutes [facility] Markus Nurse [facility] Comment on above: GA: 11w1d Start: 01-01-2025 End: 01-01-2025 ambulatory YOUSIF APARICIO Not Available Start: 10-18-2024 Non-patient / Non-visit PHYSICIAN NO [facility] Work Phone: Start: 10-17-2024 End: 10-21-2024 Evaluation and management of inpatient PHYSICIAN [facility] Work Phone: Start: 10-16-2024 Non-patient / Non-visit Marc Alvarado MD Work Phone: [facility] Work Phone: Start: 10-15-2024 End: 10-17-2024 Evaluation and management of inpatient Rochelle Alvarado MD Work Phone: [facility] Work Phone: Start: 10-15-2024 End: 10-15-2024 Emergency department patient visit [facility] Start: 07-21-2024 Registered Recurring Rochelle mansfield MD Work Phone: [facility]- Credible Start: 07-21-2024 ambulatory Rochelle Alvarado Facility: [facility] Start: 11-26-2023 End: 11-27-2023 ambulatory [facility] Start: 11-05-2023 End: 11-05-2023 ambulatory Haydee Laura Lucila Facility:[facility] Start: 10-30-2023 Clinisync Result Encounter Yousif Markus DO Work Phone: [facility] Unsolicited Start: 10-30-2023 Clinisync Result Encounter Yousif Markus DO Work Phone: [facility]solicited Start: 10-29-2023 End: 10-29-2023 ambulatory MD Rochelle Alvarado Work Phone: [facility] Work Phone: Start: 10-29-2023 End: 10-29-2023 Departed Referred MD Rochelle Alvarado Work Phone: [facility] Path [facility] Start: 12-21-2022 End: 12-21-2022 ambulatory IVAN BASHIR . Facility:[facility] Start: 11-29-2022 End: 11-29-[address] RODO MENCHACA Facility:[facility] Start: 10-25-2022 [facility] Facility:[facility] Start: 10-11-2022 End: 10-11-[address] CHRISTINE SÁNCHEZ Facility:[facility] Start: 09-12-2022 End: 09-13-[address] YOUSIF APARICIO . Facility:[facility] Start: 08-19-2022 Encounter for preprocedural laboratory examination DR YOUSIF APARICIO . [facility] Start: 08-18-2022 End: 08-18-[address] YOUSIF APARICIO . Facility:[facility] Start: 08-16-2022 End: 08-17-[address] YOUSIF APARICIO . Facility:[facility] Start: 08-16-2022 End: 08-17-2022 Encounter for preprocedural laboratory examination DR YOUSIF APARICIO . Facility:[facility] Start: 08-14-2022 End: 08-15-2022 [facility] Facility:[facility] Start: 07-27-2022 End: 07-28-[address] YOUSIF APARICIO . Facility:[facility] Start: 07-09-2022 End: 07-09-[address] ELISEO HARDING Facility:[facility] Start: 12-12-2021 Telephone encounter King zee MD Work Phone: Hematology/Oncology Comment on above: Lab Orders Start: 10-28-2021 Chart abstracting King fleming MD Work Phone: Hematology/Oncology Start: 04-26-2020 End: 04-26-2020 Subsequent hospital visit by physician Rochelle Alvarado [facility] Start: 03-16-2020 End: 03-17-2020 Emergency department patient visit Lmia Cornell Facility:[facility] Start: 11-20-2019 End: 11-20-2019 Subsequent hospital [...] Evaluation and management of inpatient ANGELO SPICER [facility] Procedures Date Procedure Procedure Detail Performing Clinician Start: 06-08-2025 Urnls dip stick/tabl et rgnt non-auto w/o micrscp Yousif Markus DO Work Phone: Start: 05-21-2025 OVA + PARASITE EXAM Janeth Woody P[employer]S C[employer]TER Work Phone: Start: 05-20-2025 Urnls dip stick/tabl et rgnt non-auto w/o micrscp Mundo Woody P[employer] C[employer]TER Work Phone: Start: 05-08-2025 GLUCOSE 1 HOUR Mundo Woody NP Work Phone: Start: 05-06-2025 Urnls dip stick/tabl et rgnt non-auto w/o micrscp Yousif Amrkus DO Work Phone: Start: 04-09-2025 Urnls dip stick/tabl et rgnt non-auto w/o micrscp Jody UREÑA Work Phone: Start: 03-11-2025 RECURRENT VAGINITIS (HTRX) Yousif Markus DO Work Phone: Start: 03-11-2025 Urnls dip stick/tabl et rgnt non-auto w/o micrscp Yousif Markus DO Work Phone: Start: 03-11-2025 IGP,APTIMA HPV,AGE GDLN Yousif Aparicio DO Work Phone: Start: 03-11-2025 Microscopic observat ion [Identifier] in Cervix by Cyto stain Yousif Aparicio DO Work Phone: Start: 01-19-2025 Urnls dip stick/tabl et rgnt non-auto w/o micrscp Yousif Balbuenao DO Work Phone: Start: 01-07-2025 BOX TEST Yousifkelvin toure DO Work Phone: Start: 01-01-2025 Urnls dip stick/tabl et rgnt non-auto w/o micrscp Yousif Balbuenao DO Work Phone: Start: 10-16-2024 MRI of head Rochelle warren MD Work Phone: Start: 10-15-2024 Respiratory Panel (PCR) Rochelle Alvarado MD Work Phone: Start: 10-30-2023 [facility] CBC WITH PLATEL ET NO DIFFERENTIAL Yousif Aparicio [place] Work Phone: Start: 04-26-2020 Acute hepatitis panel [...] Phone: Start: 11-06-2017 DISCHARGE PATIENT LUIS E ROQUE SPICER Start: 11-05-2017 URINE DRUG SCREEN LUIS E ROQUE SPICER Start: 11-05-2017 NURSING COMMUNICATION S ANDEEHerber SPICER Start: 11-05-2017 Lipid panel ANGELO FILTERATION OPERATOR Start: 11-05-2017 DIET GENERAL ANGELO FILTERATION OPERATOR Start: 11-05-2017 FULL CODE ANGELO BARRIOS FILTERATION OPERATOR Start: 11-05-2017 IP CONSULT TO HISTOR Y AND PHYSICAL ANGELO SPICER Start: 11-05-2017 MISCELLANEOUS NURSIN G CARE ORDER (SPECIFY) ANGELO SPICER Start: 11-05-2017 OFF UNIT PRIVILEGES DONNA SPICER Start: 11-05-2017 PATIENT STATUS (DIRECT) ANGELO SPICER Plan of Treatment Date Care Activity Detail Author Start: 03-11-2028 Screening for malign ant neoplasm of cervix [facility] Start: 06-08-2025 End: 06-08-2025 Patient encounter procedure 06/08/2025 11:10 AM EDT Routine [facility] [address] [place] [phone] Yousif Aparicio, DO [address] [place] [address] Arrived [facility] Comment on above: Arrived Start: 06-03-2025 End: 06-03-2025 Patient encounter procedure 06/03/2025 11:30 AM EDT Routine [facility] [address] [place] [phone] Yousif Aparicio, DO [address] [place] [address] [facility] Start: 05-20-2025 End: 05-20-2026 Ova and parasite [...] AM EDT Routine [facility] [address] [place] [phone] Mundo Woody, PANTS C[employer]TER [address] [place] [phone] [facility] Start: 05-20-2025 End: 05-20-2025 Professional / ancillary services management 05/20/2025 9:30 AM EDT Ancillary Procedure CHARBEL GIANG [address] [place] [phone] [facility] Start: 05-18-2025 Influenza vaccination Influenza Vacc ine (#1) [facility] Start: 05-06-2025 End: 05-06-2026 Transferrin [Mass/volume] in Serum or Plasma Transferrin Lab Routine Low iron Dizziness Expected: 05/06/2025 (Approximate), Expires: 05/06/2026 [facility] Work Phone: Comment on above: Expected: 05/06/2025 (Approximate), Expires: 05/06/2026 Start: 05-06-2025 End: 09-05-2025 US for US OB follow up transabdominal approach Imaging Routine size inconsistent with dates ([facility]) Expected: 05/06/2025, Expires: 09/05/2025 [facility] Comment on above: Expected: 05/06/2025 , Expires: 09/05/2025 Start: 05-06-2025 End: 05-06-2025 Patient encounter procedure 05/06/2025 11:30 AM EDT Office Visit CHARBEL GIANG [address] [place] [phone] Yousif Aparicio DO [address] [place], [place] [phone] Arrived [facility] Comment on above: Arrived Start: 04-09-2025 End: 04-09-2025 Patient encounter procedure 04/09/2025 9:50 AM EDT Routine [facility] [address] [place] [phone] Jody Kimble, PA [address] [place] [address] Arrived [facility] Comment on above: Arrived Start: 04-08-2025 End: 04-08-2025 Patient encounter procedure 04/08/2025 11:20 AM EDT Routine [facility] [address] [place] [phone] Jody Kimble, PA [address] [place] [address] [facility] Start: 03-25-2025 End: 03-25-2025 Professional / ancillary services management 03/25/2025 11:00 AM EDT Ancillary Procedure [facility] [address] [place] [phone] [facility] Start: 03-11-2025 End: 04-10-2025 Alpha fetoprotein, maternal Alpha fetoprotein, maternal Lab Routine Screening, , for anatomic survey ([facility]) 21 weeks gestation of ([facility]) Second trimester ([facility]) Expected: 03/11/2025 (Approximate), Expires: 04/10/2025 [facility] Comment on above: Expected: 03/11/2025 (Approximate), Expires: 04/10/2025 Start: 03-11-2025 End: 06-11-2025 US for US OB 14+ weeks anatomy scan Imaging Routine Screening, , for anatomic survey ([facility]) Expected: 03/11/2025, Expires: 06/11/2025 [facility] Comment on above: Expected: 03/11/2025 , Expires: 06/11/2025 Start: 02-16-2025 End: 02-16-2025 Patient encounter procedure 02/16/2025 3:30 PM EDT Routine [facility] [address] [place] [phone] Jody Kimble PA [address] [place] [address] [facility] Start: 01-19-2025 End: 01-19-2026 CBC panel - Blood by Automated count CBC Lab Routine Diabetes mellitus screening Expected: 01/19/2025 (Approximate), Expires: 01/19/2026 [facility] Work Phone: Comment on above: Expected: 01/19/2025 (Approximate), Expires: 01/19/2026 Start: 01-19-2025 End: 01-19-2026 Measurement of glucose 1 hour after glucose challenge for glucose tolerance test Glucose tolerance, 1 hour Lab Routine Diabetes mellitus screening Expected: 01/19/2025 (Approximate), Expires: 01/19/2026 [facility] Comment on above: Expected: 01/19/2025 (Approximate), Expires: 01/19/2026 Start: 01-19-2025 End: 01-19-2025 Patient encounter procedure 01/19/2025 2:00 PM EDT Routine [facility] [address] [place] [phone] Yousif Aparicio DO [address] [place] [address] [facility] Start: 01-01-2025 End: 01-01-2026 ABO/Rh ABO/Rh Lab Routine Missed menses , unspecified gestational age Expected: 01/01/2025 (Approximate), Expires: 01/01/2026 [facility] Comment on above: Expected: 01/01/2025 (Approximate), Expires: 01/01/2026 Start: 01-01-2025 End: 01-01-2026 Blood type and Indirect antibody screen panel - Blood Type and screen Lab Routine Missed menses , unspecified gestational age Expected: 01/01/2025 (Approximate), Expires: 01/01/2026 [facility] Work Phone: Comment on above: Expected: 01/01/2025 (Approximate), Expires: 01/01/2026 Start: 01-01-2025 End: 01-01-2026 Drugs of abuse panel - Urine by Screen method Rapid drug screen, urine Lab Routine , unspecified gestational age Encounter for supervision of normal first in first trimester Expected: 01/01/2025 (Approximate), Expires: 01/01/2026 [facility] Comment on above: Expected: 01/01/2025 (Approximate), Expires: 01/01/2026 Start: 10-21-2024 [facility] Start: 10-17-2024 Hospital admission [facility] Start: 10-17-2024 [facility] Start: 10-17-2024 [facility] Start: 10-17-2024 [facility] Start: 10-16-2024 [facility] Start: 10-16-2024 Referral to Recreation Program Specialist [facility] Start: 10-15-2024 Referral to psychiatrist [facility] Start: 10-15-2024 Referral to neurologist [facility] Start: 10-15-2024 Hospital admission [facility] Start: 01-12-2024 Screening for malign ant neoplasm of cervix HPV/Cotest [facility] Start: 12-12-2021 End: 02-11-2022 CBC W Auto Differential panel - Blood CBC + DIFF Lab Routine Iron deficiency anemia, unspecified iron deficiency anemia type Expected: 12/12/2021, Expires: 02/11/2022 [facility] Work Phone: Comment on above: Expected: 12/12/2021 , Expires: 02/11/2022 Start: 05-18-2021 Influenza vaccination INFLUENZA (#1) [facility] Start: 06-26-2020 Cervical cancer screen Cervical canc er screen [facility] Comment on above: Postponed from 01/11 (Not Indicated) Start: 06-26-2020 Screening for malign ant neoplasm of cervix Cervical cancer screen [facility] [place] Comment on above: Postponed from 01/11 (Not Indicated) Start: 05-18-2020 Influenza vaccination Flu vaccine (# 1) [place], [place] Start: 11-21-2019 End: 11-21-2019 Ancillary Procedure 11/21/2019 Ancillary Procedure Obstetrics and Gynecology [facility] Start: 06-26-2019 End: 06-26-2019 Routine 06/26/2019 Routine Obstetrics and Gynecology Georgette Leung APRN - [facility] [address] [place] [address] [phone] [facility] LOSS PREVENTION REPRESENTATIVE Start: 05-18-2019 Influenza vaccination Flu vaccine (# 1) [place], [place] Start: 2015 Cervical cancer screen Cervical canc er screen [place], [place] Start: 2015 PAP TESTING PAP TESTING [facility] Start: 2013 DTaP/Tdap/Td vaccine (1 - Tdap) DTaP/Tdap/Td vaccine (1 - Tdap) [place] Start: 2013 Urine microalbumin profile DTAP,TDAP,TD (1 - Tdap) [facility] Start: 01-12-2012 HEPATITIS C SCREENING HEPATITIS C [facility] Start: 01-12-2012 HIV SCREENING HIV SCREENING [facility] Start: 2009 HPV vaccine (1 - Fem larissa 3-dose series) HPV vaccine (1 - Female 3-dose series) [place], [place] Start: 2007 Varicella Vaccine (1 of 2 - 13+ 2-dose series) Varicella Vaccine (1 of 2 - 13+ 2-dose series) [place] Start: 2006 Adult depression screening assessment DEPRESSION SCREENING [facility] Start: 2005 DTaP/Tdap/Td vaccine (1 - Tdap) DTaP/Tdap/Td vaccine (1 - Tdap) [place] Start: 2005 HPV vaccine (1 - 2-d ose series) HPV vaccine (1 - 2-dose series) [place] Start: 2005 HPV vaccine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
== END 2025-06-18 14:06 | disposition home or self-care (01) ==
LOC: LAB 14:06
PROVIDERS: Visit Provider Nurse Practitioner Family
DX: D64.9 Anemia, unspecified (principal)
CPT/HCPCS: 36415; 85025

== ENCOUNTER 2025-06-30 19:27 | Outpatient (REF) | payer OTHER, SELFPAY ==
--- OUTSIDE RECORDS SUMMARY | 2025-06-30 19:31 | XMS_ITS | CCD ---
Author Organization [facility] Care Team Providers Care Head Charrer Name Role Phone SPICER, ANGELO Unavailable Unavailable SPICER, ANGELO Unavailable Unavailable ROCHELLE ALVARADO Unavailable Unavailable Rochelle Alvarado Primary Care Provider Lima Cornell Attending Unavailab Rochelle Quiñones Primary Care Provider [phone] Unavailable Primary Care Provider UnavailRodo Carson Primary [...] MARKUS ., DR MENENDEZ Consulting Unavailable FAMILY, [facility] Primary Care Unavaila ble MARKUS ., DR MENENDEZ Attending Unavailable MARKUS ., DR MENENDEZ Admitting Unavailable NGOC KWONG Consulting Unavailable RUSLAN LAM Consulting Unavailable [facility], [facility] Primary Care Unavaila ble MARKUS ., DR MENENDEZ Consulting Unavailable MARKUS ., DR MENENDEZ Attending Unavailable MARKUS ., DR MENENDEZ Admitting Unavailable ZIEBER, DR CHRISTINE Benites Consulting Unavailable MARKUS ., DR MENENDEZ Consulting Unavailable [facility], [facility] Primary Care Unavaila ble MARKUS ., DR MENENDEZ Attending Unavailable MARKUS ., DR MENENDEZ Admitting Unavailable MARKUS ., DR MENENDEZ Consulting Unavailable DESTINY KADI R Primary Care Unavailable MARKUS ., DR MENENDEZ Attending Unavailable MARKUS ., DR MENENDEZ Admitting Unavailable ZIEBER, DR CHRISTINE Benites Consulting Unavailable Unavailable Primary Care Provider UnavailMD Rochelle Carpio Primary Care Provider [phone] Yousif Aparicio Attending Provider [phone] ANTHONY PABON Referring Unavailable ROCHELLE ALVARADO Primary Care Unavailable NONE, XXXX Primary Care Physician Unavailab Jayjay Little Attending Unavailable Haydee Gaytan Attending Unavailable Rochelle Alvarado MD Primary Care Provider [phone] Dane Erwin MD Attending Provider [phone] NO FAMILY, PHYSICIAN Primary Care Provider Unava ilable Elfego Muniz MD Admit Provider Leola Smith MD Attending Provider Christine Talamantes MD Other Provider [phone] Dane Erwin MD Other Provider Jayjay [...] drug (disorder) [facility] Repository (20 sources) buPROPion Drug [...] Start: 09-22-2019 take 1 capsule by mo [facility] once daily LINZESS 72 MCG CAPS capsule TAKE 1 CAPSULE BY MOUTH EVERY DAY 0 09/22/2019 Active metoclopramide 10 mg oral tablet (7 sources) Dopamine-2 Receptor Antagonist Start: 05-20-2025 End: [...] polysaccharide iron complex 391 mg oral capsule (13 sources) Start: 05-06-20 End: 12-03-19 take 1 [...] supervision of normal first in first trimester ([facility]) Take 1 tablet by mouth Daily 30 tablet 11 01/01/2025 01/01/2026 Active Start: 01-01-2025 End: 01-01-2026 take 1 tablet by mouth once daily Vit-Fe Fumarate-FA ( Vitamins) 28-0.8 MG tablet Indications: Encounter for supervision of normal first in first trimester Take 1 tablet by mouth Daily 30 tablet 11 01/01/2025 01/01/2026 Active promethazine hydrochloride 12.5 mg oral tablet (10 sources) Phenothiazine Start: 05-06-2025 End: 08-04-2025 take [...] 04, 2017 12:00am START WHEN DISCHARGED FROM 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] Onset: 04-10-2023 Episodic Other [...] Test Name Value Interpretation Reference Range Facility ALL CBC WITH AUTO DIFFon BASOPHILS ABSOLUTE AUTO 0 [facility] Basophils/100 WBC (Bld) 0.2 % 0.2 - 2.0 % [facility] Eosinophils/100 WBC (Bld) 0.3 % Low 0.9 - 7.0 % [facility] Erythrocyte distribution width (RBC) [Ratio] 24.9 % High 11.0 - 15.0 % [facility] Hematocrit (Bld) [Volume fraction] 32.3 % Low 36.0 - 48.0 % [facility] Hemoglobin (Bld) [Mass/Vol] 10.5 g/dL Low 12.0 - 16.0 g/dL [facility] IMMATURE GRANULOCYTES ABS AUTO 0.05 High [facility] Immature granulocytes/100 WBC (Bld) 0.6 % High 0.0 - 0.5 % [facility] Interpretation and review of laboratory results Abnormal [facility] LYMPHOCYTES ABSOLUTE AUTO 1.3 [facility] Lymphocytes/100 WBC (Bld) 14 % Low 20.5 - 60.0 % [facility] MCH (RBC) [Entitic mass] 25.1 pg Low 26.7 - 34.0 pg [facility] MCHC (RBC) [Mass/Vol] 32.5 g/dL 29.9 - 35.2 g/dL [facility] MCV (RBC) [Entitic vol] 77.1 fL Low 81.0 - 99.0 fL [facility] MONOCYTES ABSOLUTE AUTO 0.7 [facility] Monocytes/100 WBC (Bld) 8.2 % 1.7 - 12.0 % [facility] NEUTROPHILS ABSOLUTE AUTO 6.8 High [facility] Neutrophils/100 WBC (Bld) 76.7 % High 43.0 - 75.0 % [facility] Platelet mean volume (Bld) [Entitic vol] 10.9 fL 9.5 - 13.5 fL [facility] TBH EO # 0 [facility] TBH PLT 188 [facility] TB RBC 4.19 Low [facility] TB WBC 8.9 [facility] Urinalysis macro (dipstick) panel (U)on 06-08-2025 Bilirubin, UA Negative Negative - 4(70) +++ mg/dL [facility] Blood, UA Negative Negative - 50 Chriss/mcL [facility] Clarity, UA Clear [facility] Color, UA Yellow [facility] Glucose, UA Negative Negative - 1999(110) ++++ mg/dL [facility] Interpretation and review of laboratory results Normal [facility] Ketones, UA Negative Negative - 160(16) ++++ mg/dL [facility] Leukocytes, UA Negative Negative - 500+++ Leila/mcL [facility] Nitrite, UA Negative Negative - Positive [facility] pH, UA 8 5 - 9 [facility] Protein, UA Negative Negative - 1999(20) ++++ mg/dL [facility] Spec Grav, UA 1.01 1 - 1.03 [facility] Urobilinogen, UA 1.0 0.2 - 12 mg/dL [facility] OVA + PARASITE EXAMon 2024 OVA + PARASITE EXAM Final report . [facility] Comment on above: These results were o btained using wet preparation(s) and trichrome stained smear. This test does not include testing for Cryptosporidium parvum, Cyclospora, or Microsporidia. RESULT 1 Comment . [facility] Comment on above: No ova, cysts, or pa rasites seen. One negative specimen does not rule out the possibility of a parasitic infection. Performed at: [facility] [address] [id number] Marine Animal Trainer: Justice Flor PhD, Phone: [phone] [facility] US OB FOLLOW UP TRANSABDOMIN AL APPROACHon [...] Negative Negative - 4(70) +++ mg/dL [facility] Blood, UA Negative Negative - 50 Chriss/mcL [facility] Clarity, UA Clear [facility] Color, UA Yellow [facility] Glucose, UA Negative Negative - 1999(110) ++++ mg/dL [facility] Interpretation and review of laboratory results Normal [facility] Ketones, UA Negative Negative - 160(16) ++++ mg/dL [facility] Leukocytes, UA Negative Negative - 500+++ Leila/mcL [facility] Nitrite, UA Negative Negative - Positive [facility] pH, UA 8 5 - 9 [facility] Protein, UA Negative Negative - 2000(20) ++++ mg/dL [facility] Spec Grav, UA 1.005 1 - 1.03 [facility] Urobilinogen, UA 1.0 0.2 - 12 mg/dL [facility] GLUCOSE 1 HOURon 05-08-2025 Glucose [Mass/Vol] 121 mg/dL NINF - 13 0 mg/dL [facility] Urinalysis macro (dipstick) panel (U)on 05-06-2025 Bilirubin, UA Negative Negative - 4(70) +++ mg/dL [facility] Blood, UA Positive Negative - 50 Chriss/mcL [facility] Comment on above: Large Clarity, UA Clear [facility] Color, UA Yellow [facility] Glucose, UA Negative Negative - 1999(110) ++++ mg/dL [facility] Interpretation and review of laboratory results Abnormal [facility] Ketones, UA Negative Negative - 160(16) ++++ mg/dL [facility] Leukocytes, UA Negative Negative - 500+++ Leila/mcL [facility] Nitrite, UA Negative Negative - Positive [facility] pH, UA 7 5 - 9 [facility] Protein, UA Negative Negative - 1999(20) ++++ mg/dL [facility] Spec Grav, UA 1.01 1 - 1.03 [facility] Urobilinogen, UA 0.2 0.2 - 12 mg/dL [facility] Urinalysis macro (dipstick) panel (U)on 04-09-2025 Bilirubin, UA Negative Negative - 4(70) +++ mg/dL [facility] Blood, UA Negative Negative - 50 Chriss/mcL [facility] Clarity, UA Clear [facility] Color, UA Yellow [facility] Glucose, UA Negative Negative - 1999(110) ++++ mg/dL [facility] Interpretation and review of laboratory results Abnormal [facility] Ketones, UA Negative Negative - 160(16) ++++ mg/dL [facility] Leukocytes, UA Negative Negative - 500+++ Leila/mcL [facility] Nitrite, UA Negative Negative - Positive [facility] pH, UA 8 5 - 9 [facility] Protein, UA Trace Negative - 1999(20) ++++ mg/dL [facility] Spec Grav, UA 1.01 1 - 1.03 [facility] Urobilinogen, UA 0.2 0.2 - 12 mg/dL [facility] IGP,APTIMA HPV,AGE GDLNon AGE GDLN ACOG TESTING Note . [facility] Comment on above: TESTS RESULT FLAG U NITS REF RANGE LAB Clinician Provided Cytology Information Source.............[employer] Other.............. No. of containers..01 ThinPrep Vial Age Algo ACOG Keira... 30-65 FLAG LEGEND: L-Low Normal,H-High Normal,LL-Alert Low,HH-Alert High <-Panic Low,>-Panic High,A-Abnormal,AA-Critical Abnormal Performed at: 01 =[address] [phone] Jesi Kuhn MD, HPV APTIMA Negative Negative [facility] Comment on above: This nucleic acid am plification test detects fourteen high- risk HPV types (16,18,31,33,35,39,45,51,52,56,58,59,66,68) without differentiation. Performed at: =[address] [id number] Marine Animal Trainer: Jesi Kuhn MD, Phone: [phone] Performed at: [address] [id number] Marine Animal Trainer: Jesi Kuhn MD, Phone: [phone] IGP, APTIMA HPV, RFX 16/18,45 Note . [facility] Comment on above: TESTS RESULT FLAG UN ITS REF RANGE LAB DIAGNOSIS: 02 NEGATIVE FOR INTRAEPITHELIAL LESION OR MALIGNANCY. Specimen adequacy: 02 Satisfactory for evaluation. No endocervical component is identified. Performed by: Leonardo Almazan Teletray Operator . 02 Note: Note 02 The [...] <-Panic Low,>-Panic High,A-Abnormal,AA-Critical Abnormal Performed at: [address] [phone] Jesi Kuhn MD, SPATULA-ALONE [facility] RECURRENT VAGINITIS (HTRX)on 03-12-2025 ATOPOBIUM VAGINAE 0 [facility] ATOPOBIUM VAGINAE Not detected [facility] BVAB 2,3 (BACTERIAL VAGINOSIS ASSOCIATED BACTERIA 2, 3); MOBILUNCUS SPP 0 [facility] BVAB 2,3 (BACTERIAL VAGINOSIS ASSOCIATED BACTERIA 2, 3); MOBILUNCUS SPP Not detected [facility] TIMOTHY ALBICANS, PARAPSILOSIS, TROPICALIS 0 [facility] TIMOTHY ALBICANS, PARAPSILOSIS, TROPICALIS Not detected [facility] TIMOTHY GLABRATA 0 [facility] TIMOTHY [...] detected N [facility] TRICHOMONAS VAGINALIS 0 [facility] Healthcare TRICHOMONAS VAGINALIS Not detected N [facility] US OB 14+ WEEKS ANATOMY SCAN [...] Negative Negative - 4(70) +++ mg/dL [facility] Blood, UA Negative Negative - 50 Chriss/mcL [facility] Clarity, UA Clear [facility] Color, UA Yellow [facility] Glucose, UA Negative Negative - 2000(110) ++++ mg/dL [facility] Interpretation and review of laboratory results Normal [facility] Ketones, UA Negative Negative - 160(16) ++++ mg/dL [facility] Leukocytes, UA Negative Negative - 500+++ Leila/mcL [facility] Nitrite, UA Negative Negative - Positive [facility] pH, UA 8.5 5 - 9 [facility] Protein, UA Negative Negative - 1999(20) ++++ mg/dL [facility] Spec Grav, UA 1.02 1 - 1.03 [facility] Urobilinogen, UA 0.2 0.2 - 12 mg/dL [facility] Urinalysis macro (dipstick) panel (U)on 01-19-2025 Bilirubin, UA Negative Negative - 4(70) +++ mg/dL [facility] Blood, UA Positive Negative - 50 Chriss/mcL [facility] Comment on above: large Clarity, UA Cloudy [facility] Color, UA Yellow [facility] Glucose, UA Negative Negative - 1999(110) ++++ mg/dL [facility] Interpretation and review of laboratory results Abnormal [facility] Ketones, UA Negative Negative - 160(16) ++++ mg/dL [facility] Leukocytes, UA Trace Negative - 500+++ Leila/mcL [facility] Nitrite, UA Negative Negative - Positive [facility] pH, UA 7.5 5 - 9 [facility] Protein, UA Trace Negative - 1999(20) ++++ mg/dL [facility] Spec Grav, UA 1.02 1 - 1.03 [facility] Urobilinogen, UA 1.0 0.2 - 12 mg/dL [facility] BOX TESTon 01-07-2025 BOX TEST SENT OUT [facility] BOX1 [facility] BOX2 01/07/2025 [facility] HCG ( test) Ql (U)o n 01-01-2025 Preg Test, Ur Positive Negative [facility] No Panel Informationon 01-01 Interpretation and review of laboratory results Abnormal [facility] US OB TRANSVAGINALon 025 US OB [...] II, MD, PHD at 08-Jan-2025 02:06:49 PM [facility] Normal Not Available Comment on above: Order Comment: US OB TRANSVAGINAL No LMP recorded. Urinalysis macro (dipstick) panel (U)on 01-01-2025 Bilirubin, UA Negative Negative - 4(70) +++ mg/dL [facility] Blood, UA Negative Negative - 50 [facility]iss/[facility]L [facility] Clarity, UA Clear [facility] Color, UA Yellow [facility] Glucose, UA Negative Negative - 2000(110) ++++ mg/dL [facility] Ketones, UA Negative Negative - 160(16) ++++ mg/dL [facility] Leukocytes, UA Trace Negative - 500+++ Leila/mcL [facility] Nitrite, UA Negative Negative - Positive [facility] pH, UA 7 5 - 9 [facility] Protein, UA Negative Negative - 2000(20) ++++ mg/dL [facility] Spec Grav, UA 1.02 1 - 1.03 [facility] Urobilinogen, UA 0.2 0.2 - 12 mg/dL [facility] Alanine aminotransferase [En zymatic activity/volume] in Serum or PlasmaOrdered By: Dane Erwin on 10-19-2024 ALT [Catalytic activity/Vol] Alanine aminotransferase [Enzymatic activity/volume] in Serum or Plasma High 7-52 [facility] Albumin [Mass/volume] in Ser um or Plasma by Bromocresol green (BCG) dye binding methoOrdered By: Dane Erwin on 10-19-2024 Albumin BCG dye [Mass/Vol] Albumin [Mass/volume] in Serum or Plasma by Bromocresol green (BCG) dye binding metho 3.5-5.7 [facility] Alkaline phosphatase [Enzyma tic activity/volume] in Serum or PlasmaOrdered By: Dane Erwin on 10-19-2024 ALP [Catalytic activity/Vol] Alkaline phosphatase [Enzymatic activity/volume] in Serum or Plasma High 34-104 [facility] Aspartate aminotransferase [ Enzymatic activity/volume] in Serum or PlasmaOrdered By: Dane Erwin on 10-19-2024 AST [Catalytic activity/Vol] Aspartate aminotransferase [Enzymatic activity/volume] in Serum or Plasma 13-39 [facility] Bilirubin.total [Mass/volume ] in Serum or PlasmaOrdered By: Dane Erwin on 10-19-2024 Bilirubin [Mass/Vol] Bilirubin.total [Mass/volume] in Serum or Plasma 0.3-1.0 [facility] Calcium [Mass/volume] in Ser um or PlasmaOrdered By: Dane Erwin on 10-19-2024 Calcium [Mass/Vol] Calcium [Mass/volume ] in Serum or Plasma 8.6-10.3 [facility] Carbon dioxide, total [Moles /volume] in Serum or PlasmaOrdered By: Dane Erwin on 10-19-2024 CO2 [Moles/Vol] Carbon dioxide, tota l [Moles/volume] in Serum or Plasma High 21.0-31.0 [facility] Chloride [Moles/volume] in S lizette or PlasmaOrdered By: Dane Erwin on 10-19-2024 Chloride [Moles/Vol] Chloride [Moles/vol ume] in Serum or Plasma 98-107 [facility] Comprehensive Metabolic Pane perez 10-19-2024 Albumin [Mass/Vol] 4.0 g/dL Normal 3.5-5.7 [facility] Comment on above: Performed By: #### C MP #### [address] Albumin/Globulin [Mass ratio] 1.7 {ratio} Normal [facility] Comment on above: Performed By: #### C MP #### [address] ALP [Catalytic activity/Vol] 117 U/L High 34-104 [facility] Comment on above: Performed By: #### C MP #### [address] ALT [Catalytic activity/Vol] 131 U/L High 7-52 [facility] Comment on above: Performed By: #### C MP #### [address] Anion gap [Moles/Vol] 9.1 mmol/L Normal 6.0-15.0 [facility] Comment on above: Performed By: #### C MP #### [address] AST [Catalytic activity/Vol] 34 U/L Normal 13-39 [facility] Comment on above: Performed By: #### C MP #### [address] Bilirubin [Mass/Vol] 0.5 mg/dL Normal 0.3-1.0 [facility] Comment on above: Performed By: #### C MP #### [address] Calcium [Mass/Vol] 9.8 mg/dL Normal 8.6-10.3 [facility] Comment on above: Performed By: #### C MP #### [place] [address] [place] Chloride [Moles/Vol] 101 mmol/L Normal 98-107 [facility] Comment on above: Performed By: #### C MP #### [address] CO2 [Moles/Vol] 33.1 mmol/L High 21.0-31.0 [facility] Comment on above: Performed By: #### C MP #### [address] Creatinine [Mass/Vol] 0.74 mg/dL Normal 0.60-1.20 [facility] Comment on above: Performed By: #### C MP #### [place] [address] [place] Creatinine Clr Calc Pharmacy 98.70 Normal [facility] Comment on above: Result Comment: PERF ORMED BY: [place] [address] PATHOLOGIST NETWORK PROGRAMMER MARQUITA BOLAÑOS M.D. Performed By: #### C MP #### [place] [address] [place] GFR/1.73 sq M.predicted MDRD (S/P/Bld) [Vol rate/Area] mL/min/{1.73_m2} Normal [facility] Comment on above: Performed By: #### C MP #### [address] Globulin (S) [Mass/Vol] 2.4 g/dL Normal [facility] Comment on above: Performed By: #### C MP #### [address] Glucose [Mass/Vol] 67 mg/dL Low 70-100 [facility] Comment on above: Result Comment: [place] Glucose Reference Range is dependent on time and content of last meal. Glucose of more than 200 mg/dL in a nonstressed, ambulatory subject supports the diagnosis of Diabetes Mellitus. ADA recommended reference range Performed By: #### C MP #### [place] [address] [place] Potassium [Moles/Vol] 4.2 mmol/L Normal 3.5-5.1 [facility] Comment on above: Performed By: #### C MP #### [address] Protein [Mass/Vol] 6.4 g/dL Normal 6.4-8.9 [facility] Comment on above: Performed By: #### C MP #### [facility] [address] Sodium [Moles/Vol] 139 mmol/L Normal 136-145 [facility] Comment on above: Performed By: #### C MP #### [facility] [address] Urea nitrogen [Mass/Vol] 17 mg/dL Normal 7-25 [facility] Comment on above: Performed By: #### C MP #### [facility] [address] Creatinine [Mass/volume] in Serum or PlasmaOrdered By: Dane Erwin on 10-19-2024 Creatinine [Mass/Vol] Creatinine [Mass/v olume] in Serum or Plasma 0.60-1.20 [facility] Globulin Calc (S) [Mass/Vol] Ordered By: Dane Erwin on 10-19-2024 Globulin (S) [Mass/Vol] Serum globulin measurement by calculation (mass/volume) [facility] Glucose [Mass/volume] in Ser um or PlasmaOrdered By: Dane Erwin on 10-19-2024 Glucose [Mass/Vol] Glucose [Mass/volume ] in Serum or Plasma Low 70-100 [facility] Comment on above: ADA recommended refe rence rangeRandom Glucose Reference Range is dependent on time and content of last meal. Glucose of more than 200 mg/dL in a nonstressed, ambulatory subject supports the diagnosis of Diabetes Mellitus. No Panel InformationOrdered By: Dane Erwin on 10-19-2024 Estimated GFR (CKD-EPI) > 60.0 mL/Min [facility] Creatinine Clearance (Chem 98.70 [facility] Potassium [Moles/volume] in Serum or PlasmaOrdered By: Dane Erwin on 10-19-2024 Potassium [Moles/Vol] Potassium [Moles/v olume] in Serum or Plasma 3.5-5.1 [facility] Protein [Mass/volume] in Ser um or PlasmaOrdered By: Dane Erwin on 10-19-2024 Protein [Mass/Vol] Protein [Mass/volume ] in Serum or Plasma 6.4-8.9 [facility] Serum or plasma albumin/glob ulin mass ratioOrdered By: Dane Erwin on 10-19-2024 Albumin/Globulin [Mass ratio] Serum or plasma albumin/globulin mass ratio [facility] Serum or plasma anion gap de terminationOrdered By: Dane Erwin on 10-19-2024 Anion gap [Moles/Vol] Serum or plasma an ion gap determination 6.0-15.0 [facility] Sodium [Moles/volume] in Ser um or PlasmaOrdered By: Dane Erwin on 10-19-2024 Sodium [Moles/Vol] Sodium [Moles/volume ] in Serum or Plasma 136-145 [facility] Urea nitrogen [Mass/volume] in Serum or PlasmaOrdered By: Dane Erwin on 10-19-2024 Urea nitrogen [Mass/Vol] Urea nitrogen [Mass/volume] in Serum or Plasma 7-25 [facility] Cholesterol [Mass/volume] in Serum or PlasmaOrdered By: Dane Erwin on 10-18-2024 Cholesterol [Mass/Vol] Cholesterol [Mass /volume] in Serum or Plasma Low 140-200 [facility] Comment on above: Chol less than 200 m g/dl low riskChol 201-239 mg/dl borderline riskChol 240 mg/dl and greater high risk Cholesterol in HDL [Mass/vol ume] in Serum or PlasmaOrdered By: Dane Erwin on 10-18-2024 Cholesterol in HDL [Mass/Vol] Serum or plasma high density lipoprotein (HDL) cholesterol measurement 23-92 [facility] Comment on above: HDL CHOL ATP-III CLA SSIFICATION Cardiovascular RiskHDL > or equal to 60 mg/dL LOWHDL < 40 mg/dL HIGH Cholesterol in LDL Calc [Mas s/Vol]Ordered By: Dane Erwin on 10-18-2024 Cholesterol in LDL [Mass/Vol] Cholesterol in LDL [Mass/volume] in Serum or Plasma by calculation 0-100 [facility] Comment on above: LDL ATP III CLASSIFI CATIONLDL less than 100 mg/dL OptimalLDL 100-129 mg/dL Near or above optimalLDL 130-159 mg/dL Borderline highLDL 160-189 mg/dL HighLDL greater than 189 mg/dL Very high Cholesterol in VLDL Calc [Ma ss/Vol]Ordered By: Dane Erwin on 10-18-2024 Cholesterol in VLDL [Mass/Vol] Cholesterol in VLDL [Mass/volume] in Serum or Plasma by calculation [facility] Lipid Panelon 10-18-2024 Cholesterol [Mass/Vol] 115 mg/dL Low 140-200 [facility] Comment on above: Result Comment: Chol less than 200 mg/dl low risk Chol 201-239 mg/dl borderline risk Chol 240 mg/dl and greater high risk Performed By: #### U RDS #### [facility] [address] [id number] [place] Cholesterol in HDL [Mass/Vol] 36 mg/dL Normal 23-92 [facility] Comment on above: Result Comment: HDL CHOL ATP-III CLASSIFICATION Cardiovascular Risk HDL > or equal to 60 mg/dL LOW HDL < 40 mg/dL HIGH Performed By: #### U RDS #### [facility] [address] [id number] [place] Cholesterol.total/Chol esterol in HDL [Mass ratio] 3.2 {ratio} Normal <5.0 [facility] Comment on above: Performed By: #### U RDS #### [facility] [address] [place] [address] [place] LDL Cholesterol,Calculated 55 mg/dL Normal 0-100 [facility] Comment on above: Result Comment: LDL ATP III CLASSIFICATION LDL less than 100 mg/dL Optimal LDL 100-129 mg/dL Near or above optimal LDL 130-159 mg/dL Borderline high LDL 160-189 mg/dL High LDL greater than 189 mg/dL Very high Performed By: #### U RDS #### [facility] [address] [place] [address] [place] Triglyceride w/Reflex 120 mg/dL Normal 0-149 [facility] Comment on above: Result Comment: TRIG ATP III CLASSIFICATION TRIG less than 150 mg/dL Normal TRIG 150-199 mg/dL Borderline high TRIG 200-500 mg/dL High TRIG greater than 500 mg/dL Very high Standard traceable to the Center for Disease Conrtrol and Prevention (CDC) test method. Performed By: #### U RDS #### [address] VLDL CHOLESTEROL 24 mg/dL Normal [facility] Comment on above: Performed By: #### U RDS #### [address] Serum or plasma total choles terol/high density lipoprotein (HDL) cholesterol mass ratOrdered By: Dane Erwin on 10-18-2024 Cholesterol.total/Chol esterol in HDL [Mass ratio] Serum or plasma total cholesterol/high density lipoprotein (HDL) cholesterol mass rat <5.0 [facility] Thyroid Stim Hormone w/Rflxo n 10-18-2024 Thyroid Stim Hormone w/Rflx 2.83 u[iU]/mL Normal 0.45-5.33 [facility] Comment on above: Performed By: #### U RDS #### [address] Thyrotropin [Units/volume] i n Serum or PlasmaOrdered By: Dane Erwin on 10-18-2024 TSH Qn Thyrotropin [Units/volume] in Serum or Plasma 0.45-5.33 [facility] Triglyceride [Mass/volume] i n Serum or PlasmaOrdered By: Dane Erwin on 10-18-2024 Triglyceride [Mass/Vol] Triglyceride [Mass/volume] in Serum or Plasma 0-149 [facility] Comment on above: TRIG ATP III CLASSIF ICATIONTRIG less than 150 mg/dL NormalTRIG 150-199 mg/dL Borderline highTRIG 200-500 mg/dL High TRIG greater than 500 mg/dL Very highStandard traceable to the Center for Disease Conrtrol and Prevention (CDC) test method. Vitamin D 25 Hydroxy Totalon 10-18-2024 Vitamin D 25 Hydroxy Total 10.8 ng/mL Low 30-100 [facility] Comment on above: Result Comment: YULIA MIN D STATUS 25(OH)VITAMIN D RANGE (ng/mL) Deficient <20 Insufficient 20 to <30 Sufficient 30 to 100 Reference: Sari Taylor, Mayito SNYDER, et al. Evaluation,treatment, and prevention of vitamin D deficiency; an Endocrine Society clinical practice guideline. JCEM. 2010; 96(7):1911-. PERFORMED BY: [place] [address] PATHOLOGIST NETWORK PROGRAMMER MARQUITA BOLAÑOS M.D. Performed By: #### U RDS #### [address] Vitamin D+Metabolites [Mass/ volume] in Serum or PlasmaOrdered By: Dane Erwin on 10-18-2024 Vitamin D+Metabolites [Mass/Vol] Vitamin D+Metabolites [Mass/volume] in Serum or Plasma Low 30-100 [facility] Comment on above: VITAMIN D STATUS 25( [place])VITAMIN D RANGE (ng/mL) Deficient <20 Insufficient 20 to <30Sufficient 30 to 100Reference: Sari Taylor, Mayito SNYDER, et al. Evaluation,treatment, and prevention of vitamin D deficiency; an Endocrine Society clinical practice guideline. JCEM. 2010; 96(7):1911-30. LIZBETH Antinuclear Antibodieson 10-17-2024 Antinuclear Abs, IFA Positive Critically abnormal . [facility] Comment on above: Result Comment: Nega tive <1:80 Borderline 1:80 Positive >1:80 Performed By: #### U RDS #### [address] Note 1 Comment Normal . [facility] Comment on above: Result Comment: Mojgan morgan Potential Disease Association Homogeneous Systemic Lupus Erythematosus, Drug Induced Systemic Lupus Erythematosus, Chronic Autoimmune hepatitis, Juvenile Idiopathic Arthritis Speckled Sjogren Syndrome, Systemic Lupus Erythematosus, Subacute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 [address] [address] [address] Hemanth Kerr Anion gap [Moles/Vol] 7.0 mmol/L Normal [facility] Comment on above: Performed By: #### C MP #### [facility] [address] [place] [address] Dr. Hemanth Kerr AST [Catalytic activity/Vol] 29 U/L Normal 15-37 [facility] Comment on above: Performed By: #### C MP #### [facility] [address] [address] [address] Hemanth Kerr Bilirubin [Mass/Vol] 0.4 mg/dL Normal 0.2-1.0 [facility] Comment on above: Performed By: #### C MP #### [facility] [address] [place] [address] Dr. Hemanth Kerr Calcium [Mass/Vol] 8.3 mg/dL Critically low 8.5-10.1 [facility] Comment on above: Performed By: #### C MP #### [facility] [address] [address] [address] Hemanth Kerr Chloride [Moles/Vol] 110 mmol/L Critically high 98-107 [facility] Comment on above: Performed By: #### C MP #### [facility] [address] [address] [address] Hemanth Kerr CO2 [Moles/Vol] 27.6 mmol/L Normal 21.0-32.0 [facility] Comment on above: Performed By: #### C MP #### [facility] [address] [address] [address] Hemanth Kerr Creatinine [Mass/Vol] 0.61 mg/dL Normal 0.55-1.02 [facility] Comment on above: Performed By: #### C MP #### [facility] [address] [address] [address] Hemanth Kerr EGFR-AF YEMENI >60 Normal >=60 [facility] Comment on above: Performed By: #### C MP #### [facility] [address] [address] [address] Hemanth Kerr EGFR-NON AF YEMENI >60 Normal >=60 [facility] Comment on above: Performed By: #### C MP #### [facility] [address] [address] [address] Hemanth Kerr Globulin (S) [Mass/Vol] 2.4 g/dL Normal [facility] Comment on above: Performed By: #### C MP #### [facility] [address] [place] [address] Dr. Hemanth Kerr Glucose [Mass/Vol] 110 mg/dL Critically high 74-106 [facility] Comment on above: Performed By: #### C MP #### [facility] [address] [place] [address] Dr. Hemanth Kerr Potassium [Moles/Vol] 2.6 mmol/L Critically low 3.5-5.1 [facility] Comment on above: Performed By: #### C MP #### [facility] [address] [place] [address] Dr. Hemanth Kerr Protein [Mass/Vol] 5.5 g/dL Critically low 6.4-8.2 Th [facility] Comment on above: Performed By: #### C MP #### [facility] [address] [place] [address] Dr. Hemanth Kerr Sodium [Moles/Vol] 142 mmol/L Normal 136-145 [facility] Comment on above: Performed By: #### C MP #### [facility] [address] [address] [address] Hemanth Kerr Urea nitrogen [Mass/Vol] 12.0 mg/dL Normal 7.0-18.0 [facility] Comment on above: Performed By: #### C MP #### [facility] [address] [place] [address] Dr. Hemanth Kerr Urea nitrogen/Creatinine [Mass ratio] 19.7 mg/mg Normal [facility] Comment on above: Performed By: #### C MP #### [facility] [address] [place] [address] Dr. Hemanth Kerr XR HIP LT 2 [...] ALIX GRANADOS Date: 2022-11-28 22:13 Normal [facility] ACETAMINOPHENon 11-28-2022 Acetaminophen [Mass/Vol] ug/mL Critically low 10.0-30.0 [facility] Comment on above: Performed By: #### C MP #### [facility] [address] [place] [address] Dr. Hemanth Kerr ACETONE SERUMon 11-28-2022 ACETONE Negative Normal NEGATIVE [facility] Comment on above: Performed By: #### P REG #### [facility] [address] [place] [address] Dr. Hemanth Kerr AMMONIAon 11-28-2022 Ammonia (P) [Moles/Vol] 24 umol/L Normal 11-32 [facility] Comment on above: Performed By: #### L ACT #### [facility] [address] [place] [address] Dr. Hemanth Kerr CBC AUTO DIFFon 11-28-2022 BASO # 0.0 103/ul Normal 0.0-0.1 [facility] Comment on above: Performed By: #### L ACT #### [facility] [address] [place] [address] Dr. Hemanth Kerr Basophils/100 WBC (Bld) 0.4 % Normal 0.2-2.0 [facility] Comment on above: Performed By: #### L ACT #### [facility] [address] [place] [address] Dr. Hemanth Kerr EO # 0.3 103/ul Normal 0.0-0.7 [facility] Comment on above: Performed By: #### L ACT #### [facility] [address] [place] [address] Dr. Hemanth Kerr Eosinophils/100 WBC (Bld) 3.1 % Normal 0.9-7.0 [facility] Comment on above: Performed By: #### L ACT #### [facility] [address] [place] [address] Dr. Hemanth Kerr Erythrocyte distribution width (RBC) [Ratio] 14.3 % Normal 11.0-15.0 [facility] Comment on above: Performed By: #### L ACT #### [facility] [address] [place] [address] Dr. Hemanth Kerr Hematocrit (Bld) [Volume fraction] 41.3 % Normal 36.0-48.0 [facility] Comment on above: Performed By: #### L ACT #### [facility] [address] [place] [address] Dr. Hemanth Kerr Hemoglobin (Bld) [Mass/Vol] 13.3 g/dL Normal 12.0-16.0 [facility] Comment on above: Performed By: #### L ACT #### [facility] [address] [place] [address] Dr. Hemanth Kerr IG # 0.02 10e3/ul Normal 0.00-0.03 [facility] Comment on above: Performed By: #### L ACT #### [facility] [address] [place] [address] Dr. Hemanth eKrr IG % 0.2 % Normal 0.0-0.5 [facility] Comment on above: Performed By: #### L ACT #### [facility] [address] [place] [address] Dr. Hemanth Kerr LYMPH # 2.4 103/ul Normal 1.2-3.8 [facility] Comment on above: Performed By: #### L ACT #### [facility] [address] [place] [address] Dr. Hemanth Kerr Lymphocytes/100 WBC (Bld) 26.3 % Normal 20.5-60.0 [facility] Comment on above: Performed By: #### L ACT #### [facility] [address] [place] [address] Dr. Hemanth Kerr MANUAL DIFF REQ NO Normal [facility] Comment on above: Performed By: #### L ACT #### [facility] [address] [place] [address] Dr. Hemanth Kerr MCH (RBC) [Entitic mass] 27.4 pg Normal 26.7-34.0 [facility] Comment on above: Performed By: #### L ACT #### [facility] [address] [place] [address] Dr. Hemanth Kerr MCHC (RBC) [Mass/Vol] 32.2 g/dL Normal 29.9-35.2 [facility] Comment on above: Performed By: #### L ACT #### [facility] [address] [place] [address] Dr. Hemanth Kerr MCV (RBC) [Entitic vol] 85.0 fL Normal 81.0-99.0 [facility] Comment on above: Performed By: #### L ACT #### [facility] [address] [place] [address] Dr. Hemanth Kerr MONO # 0.7 103/ul Normal 0.3-0.8 [facility] Comment on above: Performed By: #### L ACT #### [facility] [address] [place] [address] Dr. Hemanth Kerr Monocytes/100 WBC (Bld) 7.3 % Normal 1.7-12.0 [facility] Comment on above: Performed By: #### L ACT #### [facility] [address] [place] [address] Dr. Hemanth Kerr NEUT # 5.7 103/ul Normal 1.4-6.5 [facility] Comment on above: Performed By: #### L ACT #### [facility] [address] [place] [address] Dr. Hemanth Kerr Neutrophils/100 WBC (Bld) 62.7 % Normal 43.0-75.0 [facility] Comment on above: Performed By: #### L ACT #### [facility] [address] [place] [address] Dr. Hemanth Kerr Platelet mean volume (Bld) [Entitic vol] 10.6 fL Normal 9.5-13.5 [facility] Comment on above: Performed By: #### L ACT #### [facility] [address] [place] [address] Dr. Hemanth Kerr PLT 347 103/ul Normal 150-450 [facility] Comment on above: Performed By: #### L ACT #### [facility] [address] [place] [address] Dr. Hemanth Kerr RBC 4.86 106/ul Normal 4.20-5.40 [facility] Comment on above: Performed By: #### L ACT #### [facility] [address] [place] [address] Dr. Hemanth Kerr WBC 9.1 103/ul Normal 4.0-11.0 [facility] Comment on above: Performed By: #### L ACT #### [facility] [address] [place] [address] CSPINE WO CONon [...] KAMILLA MILLS Date: 2022-11-28 17:54 Normal [facility] CT HEAD WO CONon 11-28-2022 CT [...] KAMILLA MILLS Date: 2022-11-28 18:40 Normal [facility] CULTURE BLOODon 11-28-2022 Microscopic examination of blood, culture Culture Observations: NO GROWTH AT 5 DAYS. Normal [facility] Comment on above: Performed By: #### C BC #### [facility] [address] [address] [address] Hemanth Kerr Microscopic examination of blood, culture Culture Observations: NO GROWTH AT 5 DAYS. Normal [facility] Comment on above: Performed By: #### B [id number] #### [facility] [address] [place] [address] [id number] [address] Hemanth Kerr Covid-19 PCR ([facility])on 11-15 SARS-CoV-2 (COVID-19) RNA ELMO+probe Ql (Unsp spec) Not detected Normal NOT DETECTED [facility] Comment on above: Result Comment: When [...] for this test is supported by the [employer]'s declaration that [...] used). Performed By: #### L ACT #### [facility] [address] [place] [address] Dr. Hemanth Kerr DRUG SCREEN RAPID (URINE)on 11-28-2022 AMP Positive Abnormal NEGATIVE [facility] Comment on above: Performed By: #### P REG #### [facility] [address] [place] [address] Dr. Hemanth Kerr BAR Negative Normal NEGATIVE [facility] Comment on above: Performed By: #### P REG #### [facility] [address] [place] [address] Dr. Hemanth Kerr BUP Negative Normal NEGATIVE [facility] Comment on above: Performed By: #### P REG #### [facility] [address] [place] [address] Dr. Hemanth Kerr BZO Negative Normal NEGATIVE [facility] Comment on above: Performed By: #### P REG #### [facility] [address] [place] [address] Dr. Hemanth Kerr YOLANDA Negative Normal NEGATIVE [facility] Comment on above: Performed By: #### P REG #### [facility] [address] [place] [address] Dr. Hemanth Kerr CUT-OFFS SEE BELOW Normal [facility] Comment on above: Result Comment: AMP [...] ng/mL Performed By: #### P REG #### [facility] [address] [place] [address] Dr. Hemanth Kerr DRUG CUT HEADER DRUG CLASS TEST SYST EM CUT-OFF CONCENTRATIONS ARE FOLLOWS: Normal [facility] Comment on above: Performed By: #### P REG #### [facility] [address] [place] [address] Dr. Hemanth Kerr mAMP Positive Abnormal NEGATIVE [facility] Comment on above: Performed By: #### P REG #### [facility] [address] [place] [address] Dr. Hemanth Kerr MTD Negative Normal NEGATIVE [facility] Comment on above: Performed By: #### P REG #### [facility] [address] [place] [address] Dr. Hemanth Kerr OPI Negative Normal NEGATIVE [facility] Comment on above: Performed By: #### P REG #### [facility] [address] [place] [address] Dr. Hemanth Kerr OXY Negative Normal NEGATIVE [facility] Comment on above: Performed By: #### P REG #### [facility] [address] [place] [address] Dr. Hemanth Kerr PCP Negative Normal NEGATIVE [facility] Comment on above: Performed By: #### P REG #### [facility] [address] [place] [address] Dr. Hemanth Kerr PPX Negative Normal NEGATIVE [facility] Comment on above: Performed By: #### P REG #### [facility] [address] [address] [address] Hemanth Kerr TCA Negative Normal NEGATIVE [facility] Comment on above: Performed By: #### P REG #### [facility] [address] [address] [address] Hemanth Kerr THC Negative Normal NEGATIVE [facility] Comment on above: Performed By: #### P REG #### [facility] [address] [place] [address] Dr. Hemanth Kerr ER URINE PROFILEon 3 Bilirubin Ql (U) Negative Normal NEGATIVE [facility] Comment on above: Performed By: #### P REG #### [facility] [address] [place] [address] Dr. Hemanth Kerr Clarity (U) CLEAR Normal CLEAR [facility] Comment on above: Performed By: #### P REG #### [facility] [address] [place] [address] Dr. Hemanth Kerr Color (U) LT. YELLOW Normal YELLOW [facility] Comment on above: Performed By: #### P REG #### [facility] [address] [place] [address] Dr. Hemanth Kerr ERUAHD A micrscopic examina tion will be performed if indicated. Normal [facility] Comment on above: Performed By: #### P REG #### [facility] [address] [place] [address] Dr. Hemanth Kerr Glucose Ql (U) Negative Normal NEGATIVE [facility] Comment on above: Performed By: #### P REG #### [facility] [address] [place] [address] Dr. Hemanth Kerr Hemoglobin Ql (U) Negative Normal NEGATIVE [facility] Comment on above: Performed By: #### P REG #### [facility] [address] [place] [address] Dr. Hemanth Kerr Ketones Ql (U) Negative Normal NEGATIVE [facility] Comment on above: Performed By: #### P REG #### [facility] [address] [place] [address] Dr. Hemanth Kerr LEUKOCYTES Negative Normal NEGATIVE [facility] Comment on above: Performed By: #### P REG #### [facility] [address] [place] [address] Dr. Hemanth Kerr Nitrite Ql (U) Positive Abnormal NEGATIVE [facility] Comment on above: Performed By: #### P REG #### [facility] [address] [place] [address] Dr. Hemanth Kerr pH (U) 7.5 [pH] Normal 5-9 [facility] Comment on above: Performed By: #### P REG #### [facility] [address] [place] [address] Dr. Hemanth Kerr SPEC GRAVITY 1.020 Normal 1.005-<=1.02 5 [facility] Comment on above: Performed By: #### P REG #### [facility] [address] [place] [address] Dr. Hemanth Kerr UA PROTEIN TRACE Normal NEGATIVE/ TRACE [facility] Comment on above: Performed By: #### P REG #### [facility] [address] [place] [address] Dr. Hemanth Kerr UR MICRO IND INDICATED Normal [facility] Comment on above: Performed By: #### P REG #### [facility] [address] [place] [address] Dr. Hemanth Kerr Urobilinogen Qn (U) 1.0 {Jose'U}/dL Normal 0.2 - 1. 0 [facility] Comment on above: Performed By: #### P REG #### [facility] [address] [place] [address] Dr. Hemanth Kerr ETHANOL (BLD ALC)on 11-29-19 ALC NOTE NOTE: 80 mg/dl is th e legal limit for a blood alcohol level Normal [facility] Comment on above: Performed By: #### C MP #### [facility] [address] [place] [address] Dr. Hemanth Kerr Ethanol [Mass/Vol] mg/dL Normal [facility] Comment on above: Performed By: #### C MP #### [facility] [address] [place] [address] Dr. Hemanth Kerr LACTATE/LACTIC ACIDon 2022 Lactate [Moles/Vol] 0.7 mmol/L Normal 0.4-2.0 [facility] Comment on above: Performed By: #### L ACT #### [facility] [address] [place] [address] Dr. Hemanth Kerr Lactate [Moles/Vol] 9.0 mmol/L Critically high 0.4-2.0 [facility] Comment on above: Performed By: #### L ACT #### [facility] [address] [place] [address] Dr. Hemanth Kerr PH VENOUS BLOODon 11-28-2022 PCO2 VENOUS 36.6 mmHg Critically low 40.0-52.0 [facility] Comment on above: Performed By: #### P HVEN #### [facility] [address] [place] [address] Dr. Hemanth Kerr pH VENOUS 7.354 Normal 7.330-7.430 [facility] Comment on above: Performed By: #### P HVEN #### [facility] [address] [place] [address] Dr. Hemanth Kerr POINT OF CARE GLUCOSEon 11-15 Glucose [Mass/Vol] 127 mg/dL Critically high 74-106 [facility] Comment on above: Performed By: #### C BC #### [facility] [address] [place] [address] Dr. Hemanth Kerr PREG HCG QUALon 11-28-2022 , QUAL Negative Normal NEGATIVE [facility] Comment on above: Performed By: #### P REG #### [facility] [address] [place] [address] Dr. Hemanth Kerr PROF 14(COMP METB)on 023 Albumin [Mass/Vol] 3.7 g/dL Normal 3.4-5.0 [facility] Comment on above: Performed By: #### L ACT #### [facility] [address] [place] [address] Dr. Hemanth Kerr Albumin/Globulin [Mass ratio] 1.3 {ratio} Normal [facility] Comment on above: Performed By: #### L ACT #### [facility] [address] [place] [address] Dr. Hemanth Kerr ALP [Catalytic activity/Vol] 72 U/L Normal 46-116 [facility] Comment on above: Performed By: #### L ACT #### [facility] [address] [address] [address] Hemanth Kerr ALT [Catalytic activity/Vol] 42 U/L Normal 14-59 [facility] Comment on above: Performed By: #### L ACT #### [facility] [address] [address] [address] Hemanth Kerr Anion gap [Moles/Vol] 16.3 mmol/L Normal [facility] Comment on above: Performed By: #### L ACT #### [facility] [address] [place] [address] Dr. Hemanth Kerr AST [Catalytic activity/Vol] 45 U/L Critically high 15-37 [facility] Comment on above: Performed By: #### L ACT #### [facility] [address] [address] [address] Hemanth Kerr Bilirubin [Mass/Vol] 0.4 mg/dL Normal 0.2-1.0 [facility] Comment on above: Performed By: #### L ACT #### [facility] [address] [place] [address] Dr. Hemanth Kerr Calcium [Mass/Vol] 8.8 mg/dL Normal 8.5-10.1 [facility] Comment on above: Performed By: #### L ACT #### [facility] [address] [address] [address] Hemanth Kerr Chloride [Moles/Vol] 107 mmol/L Normal 98-107 [facility] Comment on above: Performed By: #### L ACT #### [facility] [address] [address] [address] Hemanth Kerr CO2 [Moles/Vol] 21.8 mmol/L Normal 21.0-32.0 [facility] Comment on above: Performed By: #### L ACT #### [facility] [address] [address] [address] Hemanth Kerr Creatinine [Mass/Vol] 1.32 mg/dL Critically high 0.55-1.02 [facility] Comment on above: Performed By: #### L ACT #### [facility] [address] [address] [address] Hemanth Kerr EGFR-AF YEMENI 58 mL/min/1.73m2 Critically low >=60 [facility] Comment on above: Performed By: #### L ACT #### [facility] [address] [address] [address] Hemanth Kerr EGFR-NON AF YEMENI 48 mL/min/1.73m2 Critically low >=60 [facility] Comment on above: Performed By: #### L ACT #### [facility] [address] [address] [address] Hemanth Kerr Globulin (S) [Mass/Vol] 2.9 g/dL Normal [facility] Comment on above: Performed By: #### L ACT #### [facility] [address] [address] [address] Hemanth Kerr Glucose [Mass/Vol] 143 mg/dL Critically high 74-106 [facility] Comment on above: Performed By: #### L ACT #### [facility] [address] [address] [address] Hemanth Kerr Potassium [Moles/Vol] 3.1 mmol/L Critically low 3.5-5.1 [facility] Comment on above: Performed By: #### L ACT #### [facility] [address] [address] [address] Hemanth Kerr Protein [Mass/Vol] 6.6 g/dL Normal 6.4-8.2 [facility] Comment on above: Performed By: #### L ACT #### [facility] [address] [address] [address] Hemanth Kerr Sodium [Moles/Vol] 142 mmol/L Normal 136-145 [facility] Comment on above: Performed By: #### L ACT #### [facility] [address] [place] [address] Dr. Hemanth Kerr Urea nitrogen [Mass/Vol] 17.0 mg/dL Normal 7.0-18.0 [facility] Comment on above: Performed By: #### L ACT #### [facility] [address] [place] [address] Dr. Hemanth Kerr Urea nitrogen/Creatinine [Mass ratio] 12.9 mg/mg Normal [facility] Comment on above: Performed By: #### L ACT #### [facility] [address] [place] [address] Dr. Hemanth Kerr PROTIMEon 11-28-2022 INR Coag (PPP) [Relative time] 0.97 {INR} Normal [facility] Comment on above: Performed By: #### P T, PTT #### [facility] [address] [place] [address] Dr. Hemanth Kerr INR GUIDELINES SEE BELOW Normal [facility] Comment on above: Result Comment: CHAN RED INR: 2.0 - 3.0 CONDITIONS NOT LISTED BELOW 2.5 - 3.5 FOR PROSTHETIC HEART VALVE REPLACEMENT 2.5 - 3.5 RECURRENT THROMBOSIS Performed By: #### P T, PTT #### [facility] [address] [place] [address] Dr. Hemanth Kerr PT Coag (PPP) [Time] 10.3 s Normal 9.0-11.6 [facility] Comment on above: Performed By: #### P T, PTT #### [facility] [address] [place] [address] Dr. Hemanth Kerr PTTon 11-28-2022 aPTT Coag (Bld) [Time] 25.4 s Normal 22.3-36.2 [facility] Comment on above: Performed By: #### P T, PTT #### [facility] [address] [place] [address] Dr. Hemanth Kerr SALICYLATEon 11-28-2022 SALICYLATE <2.8 Normal <=19.9 [facility] Comment on above: Performed By: #### C MP #### [facility] [address] [place] [address] Dr. Hemanth Kerr TROPONIN, HIGH SENSITIVITYon 11-28-2022 HSTROP 4.2 pg/mL Normal 4.0-51.3 [facility] Comment on above: Result Comment: CUT- OFF POINTS HAVE BEEN ESTABLISHED BASED ON THE FOURTH UNIVERSAL DEFINITIONS OF MYOCARDIAL INFARCTION. THE UPPER REFERENCE LIMIT (URL) OF TROPONIN, DEFINED THE 99TH PERCENTILE OF cTnI DISTRIBUTION IN A REFERENCE POPULATION, HAS BEEN CONFIRMED THE DECISION THRESHOLD FOR [place] DIAGNOSIS. Performed By: #### C MP #### [facility] [address] [place] [address] Dr. Hemanth Kerr TSHon 11-28-2022 TSH 3.476 uIU/mL Normal 0.358-3.740 [facility] Comment on above: Performed By: #### L ACT #### [facility] [address] [place] [address] Dr. Hemanth Kerr URINE MICROSCOPIC ONLYon BACTERIA LARGE Abnormal NONE SEEN [facility] Comment on above: Performed By: #### P REG #### [facility] [address] [place] [address] Dr. Hemanth Kerr Bacteria identified Cx Nom (U) INDICATED Normal [facility] Comment on above: Performed By: #### P REG #### [facility] [address] [place] [address] Dr. Hemanth Kerr CAST SEEN Abnormal NONE SEEN [facility] Comment on above: Performed By: #### P REG #### [facility] [address] [place] [address] Dr. Hemanth Kerr COARSE GRANULAR CAST RARE Normal [facility] Comment on above: Performed By: #### P REG #### [facility] [address] [place] [address] Dr. Hemanth Kerr Crystals LM Nom (Urine sed) NONE SEEN Normal NONE SEEN [facility] Comment on above: Performed By: #### P REG #### [facility] [address] [place] [address] Dr. Hemanth Kerr Epithelial cells LM Ql (Urine sed) RARE Normal NONE SEEN /RARE [facility] Comment on above: Performed By: #### P REG #### [facility] [address] [address] [address] Hemanth Kerr MUCOUS NONE SEEN Normal NONE SEEN [facility] Comment on above: Performed By: #### P REG #### [facility] [address] [address] [address] Hemanth Kerr RBC 0-2 Normal 0-2 [facility] Comment on above: Performed By: #### P REG #### [facility] [address] [address] [address] Hemanth Kerr WBC 2-5 Abnormal NONE SEEN [facility] Comment on above: Performed By: #### P REG #### [facility] [address] [address] [address] Hemanth Kerr XR CHEST 1 Von [...] KAMILLA MILLS Date: 2022-11-28 17:39 Normal [facility] CULTURE URINEon 10-13-2022 CULTURE URINE Isolate [...] Trimethoprim/Sulfamethoxa zole >=320 R F Normal [facility] Comment on above: Performed By: #### U RCX #### [facility] [address] [place] [address] Dr. Hemanth Kerr CBC AUTO DIFFon 10-11-2022 BASO # 0.0 103/ul Normal 0.0-0.1 [facility] Comment on above: Performed By: #### C BC #### [facility] [address] [place] [address] Dr. Hemanth Kerr Basophils/100 WBC (Bld) 0.3 % Normal 0.2-2.0 [facility] Comment on above: Performed By: #### C BC #### [facility] [address] [place] [address] Dr. Hemanth Kerr EO # 0.0 103/ul Normal 0.0-0.7 [facility] Comment on above: Performed By: #### C BC #### [facility] [address] [place] [address] Dr. Hemanth Kerr Eosinophils/100 WBC (Bld) 0.4 % Critically low 0.9-7.0 [facility] Comment on above: Performed By: #### C BC #### [facility] [address] [place] [address] Dr. Hemanth Kerr Erythrocyte distribution width (RBC) [Ratio] 12.2 % Normal 11.0-15.0 [facility] Comment on above: Performed By: #### C BC #### [facility] [address] [place] [address] Dr. Hemanth Kerr Hematocrit (Bld) [Volume fraction] 38.6 % Normal 36.0-48.0 [facility] Comment on above: Performed By: #### C BC #### [facility] [address] [place] [address] Dr. Hemanth Kerr Hemoglobin (Bld) [Mass/Vol] 12.0 g/dL Normal 12.0-16.0 [facility] Comment on above: Performed By: #### C BC #### [facility] [address] [place] [address] Dr. Hemanth Kerr IG # 0.07 10e3/ul Critically high 0.00-0.03 [facility] Comment on above: Performed By: #### C BC #### [facility] [address] [place] [address] Dr. Hemanth Kerr IG % 0.7 % Critically high 0.0-0.5 [facility] Comment on above: Performed By: #### C BC #### [facility] [address] [place] [address] Dr. Hemanth Kerr LYMPH # 1.2 103/ul Normal 1.2-3.8 [facility] Comment on above: Performed By: #### C BC #### [facility] [address] [place] [address] Dr. Hemanth Kerr Lymphocytes/100 WBC (Bld) 12.1 % Critically low 20.5-60.0 [facility] Comment on above: Performed By: #### C BC #### [facility] [address] [place] [address] Dr. Hemanth Kerr MANUAL DIFF REQ NO Normal [facility] Comment on above: Performed By: #### C BC #### [facility] [address] [place] [address] Dr. Hemanth Kerr MCH (RBC) [Entitic mass] 28.0 pg Normal 26.7-34.0 [facility] Comment on above: Performed By: #### C BC #### [facility] [address] [place] [address] Dr. Hemanth Kerr MCHC (RBC) [Mass/Vol] 31.1 g/dL Normal 29.9-35.2 [facility] Comment on above: Performed By: #### C BC #### [facility] [address] [place] [address] Dr. Hemanth Kerr MCV (RBC) [Entitic vol] 90.2 fL Normal 81.0-99.0 [facility] Comment on above: Performed By: #### C BC #### [facility] [address] [place] [address] Dr. Hemanth Kerr MONO # 0.7 103/ul Normal 0.3-0.8 [facility] Comment on above: Performed By: #### C BC #### [facility] [address] [place] [address] Dr. Hemanth Kerr Monocytes/100 WBC (Bld) 6.9 % Normal 1.7-12.0 [facility] Comment on above: Performed By: #### C BC #### [facility] [address] [place] [address] Dr. Hemanth Kerr NEUT # 8.1 103/ul Critically high 1.4-6.5 [facility] Comment on above: Performed By: #### C BC #### [facility] [address] [place] [address] Dr. Hemanth Kerr Neutrophils/100 WBC (Bld) 79.6 % Critically high 43.0-75.0 [facility] Comment on above: Performed By: #### C BC #### [facility] [address] [place] [address] Dr. Hemanth Kerr Platelet mean volume (Bld) [Entitic vol] 10.8 fL Normal 9.5-13.5 [facility] Comment on above: Performed By: #### C BC #### [facility] [address] [place] [address] Dr. Hemanth Kerr PLT 452 103/ul Critically high 150-450 [facility] Comment on above: Performed By: #### C BC #### [facility] [address] [place] [address] Dr. Hemanth Kerr RBC 4.28 106/ul Normal 4.20-5.40 [facility] Comment on above: Performed By: #### C BC #### [facility] [address] [place] [address] Dr. Hemanth Kerr WBC 10.1 103/ul Normal 4.0-11.0 [facility] Comment on above: Performed By: #### C BC #### [facility] [address] [place] [address] ABD/PELVIS WO CONon [...] CHRISTINE SÁNCHEZ Date: 2022-10-11 14:45 Normal [facility] ER URINE PROFILEon 3 Bilirubin Ql (U) Negative Normal NEGATIVE [facility] Comment on above: Performed By: #### L ACT #### [facility] [address] [place] [address] Dr. Hemanth Kerr Clarity (U) CLEAR Normal CLEAR [facility] Comment on above: Performed By: #### L ACT #### [facility] [address] [address] [address] Hemanth Kerr Color (U) LT. YELLOW Normal YELLOW [facility] Comment on above: Performed By: #### L ACT #### [facility] [address] [address] [address] Hemanth Kerr ERUAHD A micrscopic examina tion will be performed if indicated. Normal [facility] Comment on above: Performed By: #### L ACT #### [facility] [address] [place] [address] Dr. Hemanth Kerr Glucose Ql (U) Negative Normal NEGATIVE [facility] Comment on above: Performed By: #### L ACT #### [facility] [address] [place] [address] Dr. Hemanth Kerr Hemoglobin Ql (U) LARGE Abnormal NEGATIVE [facility] Comment on above: Performed By: #### L ACT #### [facility] [address] [place] [address] Dr. Hemanth Kerr Ketones Ql (U) Negative Normal NEGATIVE [facility] Comment on above: Performed By: #### L ACT #### [facility] [address] [place] [address] Dr. Hemanth Kerr LEUKOCYTES SMALL Abnormal NEGATIVE [facility] Comment on above: Performed By: #### L ACT #### [facility] [address] [place] [address] Dr. Hemanth Kerr Nitrite Ql (U) Negative Normal NEGATIVE [facility] Comment on above: Performed By: #### L ACT #### [facility] [address] [place] [address] Dr. Hemanth Kerr pH (U) 6.5 [pH] Normal 5-9 [facility] Comment on above: Performed By: #### L ACT #### [facility] [address] [place] [address] Dr. Hemanth Kerr Protein (U) [Mass/Vol] 30 mg/dL Abnormal NEGAT IVAN/ TRACE [facility] Comment on above: Performed By: #### L ACT #### [facility] [address] [place] [address] Dr. Hemanth Kerr SPEC GRAVITY <=1.005 Abnormal 1.005-<=1.02 5 [facility] Comment on above: Performed By: #### L ACT #### [facility] [address] [place] [address] Dr. Hemanth Kerr UR MICRO IND INDICATED Normal [facility] Comment on above: Performed By: #### L ACT #### [facility] [address] [address] [address] Hemanth Kerr Urobilinogen Qn (U) 1.0 {Jose'U}/dL Normal 0.2 - 1. 0 [facility] Comment on above: Performed By: #### L ACT #### [facility] [address] [address] [address] Hemanth Kerr PREG HCG QUALon 10-11-2022 , QUAL Negative Normal NEGATIVE [facility] Comment on above: Performed By: #### P REG #### [facility] [address] [place] [address] Dr. Hemanth Kerr PROF CHEM 8 (BAS METB)on Anion gap [Moles/Vol] 9.4 mmol/L Normal [facility] Comment on above: Performed By: #### L ACT #### [facility] [address] [place] [address] Dr. Hemanth Kerr Calcium [Mass/Vol] 8.8 mg/dL Normal 8.5-10.1 [facility] Comment on above: Performed By: #### L ACT #### [facility] [address] [place] [address] Dr. Hemanth Kerr Chloride [Moles/Vol] 97 mmol/L Critically low 98-107 [facility] Comment on above: Performed By: #### L ACT #### [facility] [address] [address] [address] Hemanth Kerr CO2 [Moles/Vol] 32.4 mmol/L Critically high 21.0-32.0 [facility] Comment on above: Performed By: #### L ACT #### [facility] [address] [place] [address] Dr. Hemanth Kerr Creatinine [Mass/Vol] 0.65 mg/dL Normal 0.55-1.02 [facility] Comment on above: Performed By: #### L ACT #### [facility] [address] [address] [address] Hemanth Kerr EGFR-AF YEMENI >60 Normal >=60 [facility] Comment on above: Performed By: #### L ACT #### [facility] [address] [address] [address] Hemanth Kerr EGFR-NON AF YEMENI >60 Normal >=60 [facility] Comment on above: Performed By: #### L ACT #### [facility] [address] [address] [address] Hemanth Kerr Glucose [Mass/Vol] 117 mg/dL Critically high 74-106 [facility] Comment on above: Performed By: #### L ACT #### [facility] [address] [address] [address] Hemanth Kerr Potassium [Moles/Vol] 2.8 mmol/L Critically low 3.5-5.1 [facility] Comment on above: Performed By: #### L ACT #### [facility] [address] [place] [address] Dr. Hemanth Kerr Sodium [Moles/Vol] 135 mmol/L Critically low 136-145 [facility] Comment on above: Performed By: #### L ACT #### [facility] [address] [address] [address] Hemanth Kerr Urea nitrogen [Mass/Vol] 8.0 mg/dL Normal 7.0-18.0 [facility] Comment on above: Performed By: #### L ACT #### [facility] [address] [place] [address] Dr. Hemanth Kerr Urea nitrogen/Creatinine [Mass ratio] 12.3 mg/mg Normal [facility] Comment on above: Performed By: #### L ACT #### [facility] [address] [address] [address] Hemanth Kerr URINE MICROSCOPIC ONLYon BACTERIA SMALL Abnormal NONE SEEN [facility] Comment on above: Performed By: #### L ACT #### [facility] [address] [place] [address] Dr. Hemanth Kerr Bacteria identified Cx Nom (U) INDICATED Normal [facility] Comment on above: Performed By: #### L ACT #### [facility] [address] [place], [place] [id number] Dr. Hemanth Kerr CAST NONE SEEN Normal NONE SEEN [facility] Comment on above: Performed By: #### L ACT #### [facility] [address] [place] [address] Dr. Hemanth Kerr Crystals LM Nom (Urine sed) NONE SEEN Normal NONE SEEN [facility] Comment on above: Performed By: #### L ACT #### [facility] [address] [place] [address] Dr. Hemanth Kerr Epithelial cells LM Ql (Urine sed) FEW Abnormal NONE SEEN /RARE [facility] Comment on above: Performed By: #### L ACT #### [facility] [address] [place] [address] Dr. Hemanth Kerr MUCOUS NONE SEEN Normal NONE SEEN [facility] Comment on above: Performed By: #### L ACT #### [facility] [address] [place] [address] Dr. Hemanth Kerr RBC 0-2 Normal 0-2 [facility] Comment on above: Performed By: #### L ACT #### [facility] [address] [place] [address] Dr. Hemanth Kerr WBC 10-20 Abnormal NONE SEEN [facility] Comment on above: Performed By: #### L ACT #### [facility] [address] [place] [address] Dr. Hemanth Kerr PREG QUANT HCGon 09-12-2022 HCG QUANT 66 mIU/mL Normal [facility] Comment on above: Performed By: #### C MP #### [facility] [address] [place] [address] Dr. Hemanth Kerr HCG RANGE SEE BELOW Normal [facility] Comment on above: Result Comment: 5-50 0.2-1 WEEK 50-500 1-2 WEEKS 100-5,000 2-3 WEEKS 500-10,000 3-4 WEEKS 1,000-50,000 4-5 WEEKS 10,000-100,000 5-6 WEEKS 15,000-200,000 6-8 WEEKS 10,000-100,000 2-3 MONTHS Performed By: #### C MP #### [facility] [address] [address] [address] Hemanth Kerr CBC AUTO DIFFon 08-16-2022 BASO # 0.0 103/ul Normal 0.0-0.1 [facility] Comment on above: Performed By: #### L ACT #### [facility] [address] [address] [address] Hemanth Kerr Basophils/100 WBC (Bld) 0.6 % Normal 0.2-2.0 [facility] Comment on above: Performed By: #### L ACT #### [facility] [address] [address] [address] Hemanth Kerr EO # 0.1 103/ul Normal 0.0-0.7 [facility] Comment on above: Performed By: #### L ACT #### [facility] [address] [place] [address] Dr. Hemanth Kerr Eosinophils/100 WBC (Bld) 1.3 % Normal 0.9-7.0 [facility] Comment on above: Performed By: #### L ACT #### [facility] [address] [place] [address] Dr. Hemanth Kerr Erythrocyte distribution width (RBC) [Ratio] 12.0 % Normal 11.0-15.0 [facility] Comment on above: Performed By: #### L ACT #### [facility] [address] [place] [address] Dr. Hemanth Kerr Hematocrit (Bld) [Volume fraction] 35.6 % Critically low 36.0-48.0 [facility] Comment on above: Performed By: #### L ACT #### [facility] [address] [address] [address] Hemanth Kerr Hemoglobin (Bld) [Mass/Vol] 12.4 g/dL Normal 12.0-16.0 [facility] Comment on above: Performed By: #### L ACT #### [facility] [address] [place] [address] Dr. Hemanth Kerr IG # 0.02 10e3/ul Normal 0.00-0.03 [facility] Comment on above: Performed By: #### L ACT #### [facility] [address] [place] [address] Dr. Hemanth Kerr IG % 0.3 % Normal 0.0-0.5 [facility] Comment on above: Performed By: #### L ACT #### [facility] [address] [place] [address] Dr. Hemanth Kerr LYMPH # 1.9 103/ul Normal 1.2-3.8 [facility] Comment on above: Performed By: #### L ACT #### [facility] [address] [place] [address] Dr. Hemanth Kerr Lymphocytes/100 WBC (Bld) 27.5 % Normal 20.5-60.0 [facility] Comment on above: Performed By: #### L ACT #### [facility] [address] [place] [address] Dr. Hemanth Kerr MANUAL DIFF REQ NO Normal [facility] Comment on above: Performed By: #### L ACT #### [facility] [address] [place] [address] Dr. Hemanth Kerr MCH (RBC) [Entitic mass] 29.6 pg Normal 26.7-34.0 [facility] Comment on above: Performed By: #### L ACT #### [facility] [address] [place] [address] Dr. Hemanth Kerr MCHC (RBC) [Mass/Vol] 34.8 g/dL Normal 29.9-35.2 [facility] Comment on above: Performed By: #### L ACT #### [facility] [address] [place] [address] Dr. Hemanth Kerr MCV (RBC) [Entitic vol] 85.0 fL Normal 81.0-99.0 [facility] Comment on above: Performed By: #### L ACT #### [facility] [address] [place] [address] Dr. Hemanth Kerr MONO # 0.4 103/ul Normal 0.3-0.8 [facility] Comment on above: Performed By: #### L ACT #### [facility] [address] [place] [address] Dr. Hemanth Kerr Monocytes/100 WBC (Bld) 6.3 % Normal 1.7-12.0 [facility] Comment on above: Performed By: #### L ACT #### [facility] [address] [place] [address] Dr. Hemanth Kerr NEUT # 4.5 103/ul Normal 1.4-6.5 [facility] Comment on above: Performed By: #### L ACT #### [facility] [address] [place] [address] Dr. Hemanth Kerr Neutrophils/100 WBC (Bld) 64.0 % Normal 43.0-75.0 [facility] Comment on above: Performed By: #### L ACT #### [facility] [address] [place] [address] Dr. Hemanth Kerr Platelet mean volume (Bld) [Entitic vol] 10.6 fL Normal 9.5-13.5 [facility] Comment on above: Performed By: #### L ACT #### [facility] [address] [place] [address] Dr. Hemanth Kerr PLT 247 103/ul Normal 150-450 [facility] Comment on above: Performed By: #### L ACT #### [facility] [address] [place] [address] Dr. Hemanth Kerr RBC 4.19 106/ul Critically low 4.20-5.40 [facility] Comment on above: Performed By: #### L ACT #### [facility] [address] [place] [address] Dr. Hemanth Kerr WBC 7.0 103/ul Normal 4.0-11.0 [facility] Comment on above: Performed By: #### L ACT #### [facility] [address] [place] [address] Dr. Hemanth Kerr [facility] SARS-CoV-2 (COVID-19) RNA ELMO+probe Ql (Unsp spec) Not detected Normal NOT DETECTED [facility] Comment on above: Result Comment: This test is not yet approved or cleared by the [place] FDA. When there are no FDA-approved or cleared tests available, and other criteria are met, FDA can make tests available under an emergency access mechanism called an Emergency Use Authorization (EUA). The EUA for this test is supported by the Lead Maintenance Technician of Health and Human Service's (HHS's) [...] SARS-CoV-2. Performed By: #### C MP #### [facility] [address] [place] [address] Dr. Hemanth Kerr PREG QUANT HCGon 08-16-2022 HCG QUANT 00507 mIU/mL Normal [facility] Comment on above: Performed By: #### P REG #### [facility] [address] [place] [address] Dr. Hemanth Kerr HCG RANGE SEE BELOW Normal [facility] Comment on above: Result Comment: 5-50 0.2-1 WEEK 50-500 1-2 WEEKS 100-5,000 2-3 WEEKS 500-10,000 3-4 WEEKS 1,000-50,000 4-5 WEEKS 10,000-100,000 5-6 WEEKS 15,000-200,000 6-8 WEEKS 10,000-100,000 2-3 MONTHS Performed By: #### P REG #### [facility] [address] [place] [address] Dr. Hemanth Kerr PREG QUANT HCGon 08-14-2022 HCG QUANT 71547 mIU/mL Normal [facility] Comment on above: Performed By: #### P REG #### [facility] [address] [place] [address] Dr. Hemanth Kerr HCG RANGE SEE BELOW Normal [facility] Comment on above: Result Comment: 5-50 0.2-1 WEEK 50-500 1-2 WEEKS 100-5,000 2-3 WEEKS 500-10,000 3-4 WEEKS 1,000-50,000 4-5 WEEKS 10,000-100,000 5-6 WEEKS 15,000-200,000 6-8 WEEKS 10,000-100,000 2-3 MONTHS Performed By: #### P REG #### [facility] [address] [address] [address] Hemanth Kerr US PREG TVon 08-14-2022 [...] by: CHRISTINE SÁNCHEZ Date: 2022-08-14 16:22 Normal [facility] US PREG TVon 07-27-2022 US PREG [...] by: CHRISTINE SÁNCHEZ Date: 2022-07-27 17:04 Normal [facility] XR CHEST 1 Von 07-09-2022 XR [...] 12:06 [facility] NOE [facility]URAN ([id number]) 1995 F Date Time Provider Department 12/12/21 [facility] SUAZO During your visit today, we recorded the following information about you: Angelia Almazan 12/12/2021 11:16 AM Signed Pleases sign pending new cbc order. Thanks, Angelia Almazan MA Allergies As of Date: 12/12/2021 (No Known Allergies) Date Reviewed: 12/12/2021 Reviewed by: Jasmin Zuñiga APRN.[facility] - Fully Assessed Reason for Visit: Lab Orders [7768] Primary Visit Diagnosis:Iron deficiency anemia, unspecified iron deficiency anemia type [D50.9] Order(s):CBC + DIFF [SQCBCDIF] Order #: [id number] FUTURE Prescriptions as of 12/12/2021 - gabapentin (NEURONTIN) 400 mg capsule Take by mouth. - Polysaccharide Iron Complex 180 mg iron cap Take by mouth. - aspirin 81 mg cap Take 81 mg by mouth once daily. - ONDANSETRON HCL ORAL Take 4 mg by mouth as needed. Problem List As Of Date: 12/12/2021 (None) Encounter Status:Closed by JASMIN ZUÑIGA on 12/12/21 Normal [facility] NOE DURAN ([id number]) 1995 F Date Time Provider Department 11/10/21 [...] B12 is slightly low. Options would be mmem-jji-ihaevog B12 tablets 2 mg daily or start a monthly injection. Thanks, MELANY De La O RN 11/10/2021 3:40 PM Signed Informed pt of Dr Suazo's message. Pt verbalized understanding and states [facility] only 2 doses of [...] JENNYFER DE LA O on 11/10/21 Normal [facility] CNOVSPon 11-08-2021 CNOVSP Visit (SP) Office ([place]) ----- NOE DURAN ([id number]) 1995 F Date Time Provider Department 11/08/21 11:00 AM [facility] SUAZO During your visit today, we recorded the following information about you: Temperature Pulse Respiration Blood pressure 97.7 degrees 108/minute 16/minute 127/70 Weight 93.4 kg King Sauzo MD 11/08/2021 3:47 PM Signed PATIENT NAME: [...] shortness of breath, and is seen at [place] emergency room. Labs revealed a hemoglobin of [...] changes, r (more content not included)... Normal [facility] Comp Metabolic Panelon 11-08 Albumin [Mass/Vol] 3.6 g/dL Low 3.9-4.9 [facility] Comment on above: Performed By: #### S ERFOL, IRON, B12, FERR #### [facility] [address] [place], [place] [address] ALP [Catalytic activity/Vol] 79 U/L Normal 34-123 [facility] Comment on above: Performed By: #### S ERFOL, IRON, B12, FERR #### [facility] [address] [place], [place] [address] ALT [Catalytic activity/Vol] 8 U/L Normal 7-38 [facility] Comment on above: Performed By: #### S ERFOL, IRON, B12, FERR #### [facility] [address] [place], [place] [address] Anion gap [Moles/Vol] 9 mmol/L Normal 9-18 [facility] Comment on above: Performed By: #### S ERFOL, IRON, B12, FERR #### [facility] [employer] [address] [place], [place] [address] AST [Catalytic activity/Vol] 13 U/L Normal 13-35 [facility] Comment on above: Performed By: #### S ERFOL, IRON, B12, FERR #### [place] [id number] [place] [address] Bilirubin [Mass/Vol] 0.2 mg/dL Normal 0.2-1.3 [facility] Comment on above: Performed By: #### S ERFOL, IRON, B12, FERR #### [place] [address] Calcium [Mass/Vol] 9.3 mg/dL Normal 8.5-10.2 [facility] Comment on above: Performed By: #### S ERFOL, IRON, B12, FERR #### [place] [address] Chloride [Moles/Vol] 102 mmol/L Normal 97-105 [facility] Comment on above: Performed By: #### S ERFOL, IRON, B12, FERR #### [place] [address] CO2 [Moles/Vol] 23 mmol/L Normal 22-30 [facility] Comment on above: Performed By: #### S ERFOL, IRON, B12, FERR #### [place] [address] Creatinine [Mass/Vol] 0.55 mg/dL Low 0.58-0.96 [facility] Comment on above: Performed By: #### S ERFOL, IRON, B12, FERR #### [place] [id number] [place] [address] eGFR- Amer. >60 Normal [facility] Comment on above: Performed By: #### S ERFOL, IRON, B12, FERR #### [place] [address] eGFR-All Other Races >60 Normal [facility] Comment on above: Result Comment: eGFR [...] #### S ERFOL, IRON, B12, FERR #### [facility] [employer] [address] [place], [place] [id number] Glucose [Mass/Vol] 96 mg/dL Normal 74-99 [facility] Comment on above: Result Comment: The [place] Diabetes Association (ADA) provides guidance for cutoff [...] Standards of Medical Care in Diabetes 2016, [place] [employer]. Diabetes Care. 2016.39(Suppl 1). Performed By: #### S ERFOL, IRON, B12, FERR #### [facility] [employer] [address] [place], [place] [address] Potassium [Moles/Vol] 3.3 mmol/L Low 3.7-5.1 [facility] Comment on above: Performed By: #### S ERFOL, IRON, B12, FERR #### [place] [id number] [place] [address] Protein [Mass/Vol] 6.3 g/dL Normal 6.3-8.0 [facility] Comment on above: Performed By: #### S ERFOL, IRON, B12, FERR #### [place] [address] Sodium [Moles/Vol] 134 mmol/L Low 136-144 [facility] Comment on above: Performed By: #### S ERFOL, IRON, B12, FERR #### [place] [phone] Urea nitrogen [Mass/Vol] 4 mg/dL Low 7-21 [facility] Comment on above: Performed By: #### S ERFOL, IRON, B12, FERR #### [place] [address] Ferritinon 11-08-2021 Ferritin [Mass/Vol] 203.0 ng/mL Normal 14.7-205.1 [facility] Comment on above: Performed By: #### S ERFOL, IRON, B12, FERR #### [place] [address] Folate, Serumon 11-08-2021 Folate [Mass/Vol] 8.5 ng/mL Normal >4.7 [facility] Comment on above: Performed By: #### S ERFOL, IRON, B12, FERR #### [place] [address] Iron and TIBCon 11-08-2021 Iron [Mass/Vol] 93 ug/dL Normal 41-186 [facility] Comment on above: Performed By: #### S ERFOL, IRON, B12, FERR #### [place] [address] TIBC 407 ug/dL High 232-386 [facility] Comment on above: Performed By: #### S ERFOL, IRON, B12, FERR #### [facility] [employer] [address] [place], [place] [address] Transferrin Saturatn 23 % Normal 15-57 [facility] Comment on above: Performed By: #### S ERFOL, IRON, B12, FERR #### [facility] [employer] [address] [place], [place] [address] Remote CBCDIF (for [facility] use o nly)on 11-08-2021 Abs Baso <0.03 Normal <0.11 [facility] Abs Crosby 0.57 k/uL Normal <0.87 [facility] Abs Neut 4.67 k/uL Normal 1.45-7.50 [facility] Absolute nRBC <0.01 Normal <0.01 [facility] Basophils/100 WBC (Bld) 0.3 % Normal [facility] DTYPE Auto Diff Normal [facility] Eosinophils (Bld) [#/Vol] 0.05 10*3/uL Normal <0.46 [facility] Eosinophils/100 WBC (Bld) 0.8 % Normal [facility] Erythrocyte distribution width (RBC) [Ratio] 29.9 % High 11.5-15.0 [facility] Hematocrit (Bld) [Volume fraction] 32.6 % Low 36.0-46.0 [facility] Hemoglobin (Bld) [Mass/Vol] 10.1 g/dL Low 11.5-15.5 [facility] Lymphocytes (Bld) [#/Vol] 1.25 10*3/uL Normal 1.00-4.00 [facility] Lymphocytes/100 WBC (Bld) 19.1 % Normal [facility] MCH 25.1 pG Low 26.0-34.0 [facility] MCHC (RBC) [Mass/Vol] 31.0 g/dL Normal 30.5-36.0 [facility] MCV (RBC) [Entitic vol] 81.1 fL Normal 80.0-100.0 [facility] Monocytes/100 WBC (Bld) 8.7 % Normal [facility] Neutrophils/100 WBC (Bld) 71.1 % Normal [facility] NRBCs 0.0 /100 WBC Normal 0 [facility] Platelet mean volume (Bld) [Entitic vol] 10.3 fL Normal 9.0-12.7 [facility] Platelets (Bld) [#/Vol] 223 10*3/uL Normal 150-400 [facility] Comment on above: Result Comment: Resu lt checked and verified Sample checked for a clot. RBC (Bld) [#/Vol] 4.02 10*6/uL Normal 3.90-5.20 [facility] WBC (Bld) [#/Vol] 6.56 10*3/uL Normal 3.70-11.00 [facility] Reticulocyteon 11-08-2021 Abs Retic 0.140 M/uL High 0.0180-0.100 0 [facility] Comment on above: Performed By: #### S ERFOL, IRON, B12, FERR #### [facility] [address] [place] [address] Retic% 3.5 % High 0.4-2.0 [facility] Comment on above: Performed By: #### S ERFOL, IRON, B12, FERR #### [facility] [employer] [address] [place] [id number] Vitamin B12on 11-08-2021 Cobalamin (Vitamin B12) [Mass/Vol] 218 pg/mL Low 232-1245 [facility] Comment on above: Performed By: #### S ERFOL, IRON, B12, FERR #### [facility] [employer] [address] [place] [address] CBCon 04-26-2020 Erythrocyte distribution width (RBC) [Ratio] 14.7 % High 11.8 - 14.4 % [place] Hematocrit (Bld) [Volume fraction] 36.0 % Low 36.3 - 47.1 % [place] Hemoglobin (Bld) [Mass/Vol] 10.9 g/dL Low 11.9 - 15.1 g/dL [place] Interpretation and review of laboratory results Abnormal [place] MCH (RBC) [Entitic mass] 26.2 pg 25.2 - 33.5 pg [place] MCHC (RBC) [Mass/Vol] 30.3 g/dL 28.4 - 34.8 g/dL [place] MCV (RBC) [Entitic vol] 86.5 fL 82.6 - 102.9 fL [place] Platelet mean volume (Bld) [Entitic vol] 10.8 fL 8.1 - 13.5 fL [place] Platelets (Bld) [#/Vol] 328 10*3/uL [place] RBC (Bld) [#/Vol] 4.16 10*6/uL 3.95 - 5.1 1 m/uL [place] WBC (Bld) [#/Vol] 0.0 10*3/uL 0.0 per 10 0 WBC [place] WBC (Bld) [#/Vol] 5.7 10*3/uL [place] Comprehensive Metabolic Pane perez 04-26-2020 Albumin [Mass/Vol] 3.4 g/dL Low 3.5 - 5.2 g/dL [place] Albumin/Globulin [Mass ratio] 1.5 {ratio} [place] ALP [Catalytic activity/Vol] 40 U/L 35 - 104 U/L [place] ALT [Catalytic activity/Vol] 12 U/L 5 - 33 U/L [place] Anion gap [Moles/Vol] 9 mmol/L 9 - 17 mmol/L [place] AST [Catalytic activity/Vol] 12 U/L <32 [place] Bilirubin Ql (U) <0.10 Low 0.3 - 1.2 mg/dL [place] Bun/Cre Ratio 26 High [place] Calcium [Mass/Vol] 9.3 mg/dL 8.6 - 10. 4 mg/dL [place] Chloride [Moles/Vol] 109 mmol/L High 98 - 10 7 mmol/L [place] CO2 [Moles/Vol] 26 mmol/L 20 - 31 mmol/L [place] Creatinine [Mass/Vol] 0.57 mg/dL 0.5 - 0.9 mg/dL [place] GFR >60 >60 mL/min [place] GFR Non- >60 >60 mL/min [place] Glucose [Mass/Vol] 92 mg/dL 70 - 99 mg/dL [place] Interpretation and review of laboratory results Abnormal [place] Potassium [Moles/Vol] 3.8 mmol/L 3.7 - 5.3 mmol/L [place] Protein [Mass/Vol] 5.7 g/dL Low 6.4 - 8.3 g/dL [place] Sodium [Moles/Vol] 144 mmol/L 135 - 144 mmol/L [place] Urea nitrogen [Mass/Vol] 15 mg/dL 6 - 20 mg/dL [place] HCG Qualitative, Serumon hCG Qual Negative NEGATIVE [place] Comment on above: Specimens with hCG l evels near the threshold of the test (25 mIU/mL) may give a negative or indeterminate result. In such cases, another test should be performed with a new specimen in 48-72 hours. If early is suspected clinically in this setting, correlation with quantitative serum b-hCG level is suggested. [facility] [employer] has confirmed the use of plasma for this test. This has not been cleared or approved by the U.S. Food and Drug Administration. The FDA has determined that such clearance is not necessary. HIV Screenon 04-26-2020 HIV Ag/Ab NONREACTIVE NONREACTIVE [place] Comment on above: No laboratory eviden ce of HIV infection. If acute HIV infection is suspected, consider testing for HIV-1 RNA. Hepatitis Panel, Acuteon HAV IgM IA Qn (S) NONREACTIVE NONREACTIVE [place] Hep B Core Ab, IgM NONREACTIVE NONREACTIVE [place] Hepatitis B Surface Ag NONREACTIVE NONREACTIVE [place] Hepatitis C Ab REACTIVE Abnormal NONREACTIVE [place] Comment on above: The hepatitis C [...] Interpretation and review of laboratory results Abnormal [place] Metabolic Panelon 04-26-2020 GFR/1.73 sq M predicted among non-blacks MDRD (S/P/Bld) [Vol rate/Area] [place] Comment on above: Stage 1: Some [...] body mass. Additional eGFR calculator available at: http://www.[employer]/multiple_crcl_2012.htm Microscopic Urinalysison Amorphous, UA NOT REPORTED None [place] Bacteria, UA NOT REPORTED None [place] Casts UA NOT REPORTED /LPF [place] Crystals, UA 5 TO 10 Abnormal None /HPF [place] Crystals, UA CALCIUM OXALATE Abnormal None /HPF [place] Epithelial Cells UA 0 TO 2 [place] Interpretation and review of laboratory results Abnormal [place] Mucus, UA TRACE Abnormal None [place] Other Observations UA NOT REPORTED NOT REQ. M [place] RBC (U) [#/Vol] None [place] Renal Epithelial, UA NOT REPORTED 0 /HPF [place] Trichomonas, UA NOT REPORTED None [place] WBC, UA 0 TO 2 [facility] [place] Yeast, UA NOT REPORTED None [facility] [place] - [facility] [place] Urinalysis Reflex to Culture on 04-26-2020 Bilirubin Urine Negative NEGATIVE [facility] [place] Color, UA YELLOW YELLOW [facility] [place] Glucose, Ur Negative NEGATIVE [facility] [place] Interpretation and review of laboratory results Abnormal [facility] [place] Ketones Ql (U) Negative NEGATIVE [facility] [place] Leukocyte esterase Test strip Ql (U) Negative NEGATIVE [facility] [place] Nitrite, Urine Negative NEGATIVE [facility] [place] pH, UA 6.5 [facility] Protein (U) [Mass/Vol] Negative NEGATIVE [facility] [place] Specific [place], UA 1.025 [facility] [place] Turbidity UA CLEAR CLEAR [facility] [place] Urinalysis Comments NOT REPORTED [facility] Urine Hgb Negative NEGATIVE [facility] [place] Urobilinogen, Urine Normal Normal [facility] ED Clinical Summaryon 2019 ED Clinical Summary (Inserted Image. Ritika ble to display) [address] [address] ED Clinical Summary Person Information [facility] Age: 25 Years : 1995 Sex: Female PCP: Marital Status: Single Phone: Race: White Ethnicity: Not or Language: Georgian Visit Reason: Drug withdrawal; Drug withdrawal Acuity: 3 Enc Type: Emergency Med Service: Emergency Medicine Arrival: 03/16/2020 20:10:45 Discharge: 03/17/2020 02:12:00 LOS: 000 06:02 Checkin: 03/16/2020 20:10:45 Checkout: 03/17/2020 02:12:00 Dispo Type: Home or Self Care Address: [address] [place] [id number] Provider Notes: Diagnosis: 1:Affective disorder; 2:Drug usage [...] range between ( 27.2 and 40.8 ) Crosby Auto: 11.4 % -- Normal range between [...] range between ( 36.0 and 46.0 ) Crosby Absolute: 1.5 x10 MCH: 27.4 pg -- [...] 03/16/2020 20:20:41 Follow up: With: Address: When: [facility] - In [place], [place] Within 1 to 2 days Discharge Orders: Discharge Patient 03/17/20 1:45:00 EDT, Discharge to Home, Self Patient Education Information: Understanding Methamphetamine Abuse and Addiction; Treating Affective (Mood) Disorders [facility] Poison Help line: . [facility] Hotline: [place] Tobacco Quit Line: [facility] ([place], [place]) [address]: [phone] [facility] ([place], [place]) [address]: [phone] [facility] [address] [place], [place]: [phone] Normal [facility] hCG Quantitativeon 0 Beta hCG Qnt 1.7 mIU/mL Normal 0.0-4.9 [facility] Comment on above: Result Comment: 0.0 - 4.9 Negative for 5.0 - 25.0 Indeterminant for : Suggest repeat in 72 hours. >25.0 Positive for Performed By: #### H CG ####[address] [address] .UA Microscp Aon 03-16-2020 UA Hyline Cast Qual >20 Abnormal Negative [facility] Comment on above: Performed By: #### C [id number] ####[address] [address] UA Mucus Present Abnormal Absent [facility] Comment on above: Performed By: #### C [id number] ####[address] [address] UA RBC Quant 12 /HPF High 0-5 [facility] Comment on above: Performed By: #### C [id number] ####[address] [address] UA Squepi Cells Quant 6 /HPF Normal 0-29 [facility] Comment on above: Performed By: #### C [id number] ####[address] [address] UA WBC Quant 7 /HPF High 0-5 [facility] Comment on above: Performed By: #### C [id number] ####[address] [address] .eGFRon 03-16-2020 eGFR AA 52 mL/min/1.73m? Low >=60 [facility] Comment on above: Result Comment: Resu lt = 0-14.9 mL/min/1.73 m2 Kidney failure or Dialysis Result = 15-29 mL/min/1.73 m2 Severe decrease in GFR Result = 30-59 mL/min/1.73 m2 Moderate decrease in GFR Result >= 60 mL/min/1.73 m2 Normal or increased GFR Performed By: #### E GFR #### [place] [id number] eGFR Non-AA 43 mL/min/1.73m? Low >=60 [facility] Comment on above: Result Comment: Resu [...] dosing. Performed By: #### E GFR #### [place] [id number] CBC w/ Diffon 03-16-2020 Erythrocyte distribution width (RBC) [Ratio] 15.9 % High 11.6-14.8 [facility] Comment on above: Performed By: #### C BC #### [address] [address] Hematocrit (Bld) [Volume fraction] 37.5 % Normal 36.0-46.0 [facility] Comment on above: Performed By: #### C BC #### [address] [address] Hemoglobin (Bld) [Mass/Vol] 12.5 g/dL Normal 12.0-16.0 [facility] Comment on above: Performed By: #### C BC #### [address] [address] MCH (RBC) [Entitic mass] 27.4 pg Normal 27.0-35.0 [facility] Comment on above: Performed By: #### C BC #### [address] [address] MCHC (RBC) [Mass/Vol] 33.2 % Normal 31.0-37.0 [facility] Comment on above: Performed By: #### C BC #### [address] [address] MCV (RBC) [Entitic vol] 82.4 fL Normal 80.0-100.0 [facility] Comment on above: Performed By: #### C BC #### [address] [address] Platelet mean volume (Bld) [Entitic vol] 9.4 fL Normal 6.7-10.6 [facility] Comment on above: Performed By: #### C BC #### [address] [address] Platelets (Bld) [#/Vol] 307 x10*3/mcL Normal 150-350 [facility] Comment on above: Performed By: #### C BC #### [address] [address] RBC (Bld) [#/Vol] 4.55 x10*6/mcL Normal 3.80-5.20 [facility] Comment on above: Performed By: #### C BC #### [address] [address] WBC (Bld) [#/Vol] 12.9 x10*3/mcL High 4.5-11.0 [facility] Comment on above: Performed By: #### C BC #### [address] [address] CMPon 03-16-2020 Albumin [Mass/Vol] 5.2 g/dL High 3.2-4.9 [facility] Comment on above: Result Comment: [facility] Laboratory updated the methodology used for albumin testing on 04/24/18. Albumin measurement was performed using a bromcresol purple dye-binding assay. Performed By: #### C OMP #### [address] [address] Albumin/Globulin [Mass ratio] 1.5 {ratio} Normal 1.1-2.2 [facility] Comment on above: Performed By: #### C OMP #### [address] [address] Alk Phos 47 IU/L Normal 32-91 [facility] Comment on above: Performed By: #### C OMP #### [address] [address] ALT [Catalytic activity/Vol] 19 U/L Normal 14-54 [facility] Comment on above: Performed By: #### C OMP #### [address] [address] Anion gap [Moles/Vol] 22 mmol/L High 7-17 [facility] Comment on above: Performed By: #### C OMP #### [address] [address] AST [Catalytic activity/Vol] 31 U/L Normal 15-41 [facility] Comment on above: Performed By: #### C OMP #### [address] [address] Bili Total 1.4 mg/dL High 0.3-1.2 [facility] Comment on above: Performed By: #### C OMP #### [address] [address] Calcium [Mass/Vol] 10.2 mg/dL Normal 8.5-10.3 [facility] Comment on above: Performed By: #### C OMP #### [address] [address] Chloride [Moles/Vol] 100 mmol/L Normal 98-110 [facility] Comment on above: Performed By: #### C OMP #### [address] [address] CO2 [Moles/Vol] 19 mmol/L Low 22-32 [facility] Comment on above: Performed By: #### C OMP #### [address] [address] Creatinine [Mass/Vol] 1.47 mg/dL High 0.44-1.03 [facility] Comment on above: Performed By: #### C OMP #### [address] [address] Glucose [Mass/Vol] 85 mg/dL Normal 70-99 [facility] Comment on above: Performed By: #### C OMP #### [address] [address] Potassium [Moles/Vol] 3.7 mmol/L Normal 3.4-4.8 [facility] Comment on above: Performed By: #### C OMP #### [address] [address] Protein [Mass/Vol] 8.7 g/dL High 6.5-8.1 [facility] Comment on above: Performed By: #### C OMP #### [address] [address] Sodium [Moles/Vol] 137 mmol/L Normal 133-142 [facility] Comment on above: Performed By: #### C OMP #### [address] [address] Urea nitrogen [Mass/Vol] 25 mg/dL Normal 8-26 [facility] Comment on above: Performed By: #### C OMP #### [address] [address] Urea nitrogen/Creatinine [Mass ratio] 17.0 mg/mg Normal 10.0-20.0 [facility] Comment on above: Performed By: #### C OMP #### [address] [address] CPKon 03-16-2020 Creatine Phosphokinase 439 IU/L High 38-234 [facility] Comment on above: Performed By: #### C P #### [address] [address] Diff Autoon 03-16-2020 Baso Absolute 0.0 x10*3/mcL Normal 0.0-0.2 [facility] Comment on above: Performed By: #### . Automated Diff #### [address] [address] Basophils/100 WBC (Bld) 0.4 % Normal 0.0-1.5 [facility] Comment on above: Performed By: #### . Automated Diff #### [address] [address] Eos Absolute 0.0 x10*3/mcL Normal 0.0-0.4 [facility] Comment on above: Performed By: #### . Automated Diff #### [address] [address] Eosinophils/100 WBC (Bld) 0.1 % Normal 0.0-5.4 [facility] Comment on above: Performed By: #### . Automated Diff #### [address] [address] Lymphocytes (Bld) [#/Vol] 1.4 x10*3/mcL Normal 1.0-4.8 [facility] Comment on above: Performed By: #### . Automated Diff #### [address] [address] Lymphocytes/100 WBC (Bld) 10.8 % Low 27.2-40.8 [facility] Comment on above: Performed By: #### . Automated Diff #### [address] [address] Crosby Absolute 1.5 x10*3/mcL High 0.1-1.1 [facility] Comment on above: Performed By: #### . Automated Diff #### [address] [address] Monocytes/100 WBC (Bld) 11.4 % Normal 3.7-11.9 [facility] Comment on above: Performed By: #### . Automated Diff #### [facility] [address] [place] [address] Neutro Absolute 10.0 x10*3/mcL High 1.8-7.7 [facility] Comment on above: Performed By: #### . Automated Diff #### [facility] [address] [place] [address] Neutro Auto 77.3 % High 47.2-70.8 [facility] Comment on above: Performed By: #### . Automated Diff #### [facility] [address] [place] [address] ED Note-Nursingon 03-16-2020 ED Note-Nursing Lab called about add ons Electronically signed by Barbara Holman 03/16/20 20:49 EDT Normal [facility] ED Note-Physicianon 03-16-20 ED Note-Physician [...] that she has residential set up at [facility] in [place], [place] but she has to detox first. [...] well. She was seen by Alonso, social work program coordinator who has arranged for her to go to [facility] tomorrow as patient is interested in treatment. Verbally contracted to safety and filled out a safety plan. Alonso with social work spoke with senior air director, Jelena who will arrange for further follow-up when they arrive tomorrow. Family is agreeable with plan. Patient has good support. They will return if any changes of symptoms or concern. Silvia Castañeda scribing for and in the presence of Dr. Cornell. Scribe Attestation: The information in this document, created by the medical auditor for me, accurately reflects the services I [...] High Lymph Auto 03/16/20 20:39 10.8 Low Crosby Auto 03/16/20 20:39 11.4 Eos Auto 03/16/20 20:39 0.1 Basophil Auto 03/16/20 20:39 0.4 Neutro Absolute 03/16/20 20:39 10.0 High Lymph Absolute 03/16/20 20:39 1.4 Crosby Absolute 03/16/20 20:39 1.5 High Eos Absolute [...] Lima Cornell MD 03/17/2020 04:16 EDT Normal [facility] Ethanolon 03-16-2020 Ethanol [Mass/Vol] mg/dL Normal <=9 [facility] Comment on above: Result Comment: To c onvert mg/dL to g/dL, divide result by 1,000. Legal limit of intoxication is 80 mg/dL (0.08 g/dL). Performed By: #### A LC #### [place] [id number] UA w Culture if Indon 2019 Color (U) Terri Normal [facility] Comment on above: Performed By: #### U CI #### [place] [id number] Glucose (U) [Mass/Vol] Negative Normal Negative [facility] Comment on above: Performed By: #### U CI #### [place] [id number] Ketones Ql (U) 20 mg/dL Abnormal Negative [facility] Comment on above: Performed By: #### U CI #### [address] [address] UA Blood Small Abnormal Negative [facility] Comment on above: Performed By: #### U CI #### [address] [address] UA Clarity Cloudy Normal [facility] Comment on above: Performed By: #### U CI #### [address] [address] UA Leukocyte Esterase Trace Abnormal Negative [facility] Comment on above: Performed By: #### U CI #### [address] [address] UA Nitrite Negative Normal Negative [facility] Comment on above: Performed By: #### U CI #### [address] [address] UA pH 5.0 Normal 4.5 - 7.8 [facility] Comment on above: Performed By: #### U CI #### [address] [address] UA Protein 100 mg/dL Abnormal Negative [facility] Comment on above: Performed By: #### U CI #### [address] [address] UA Source Clean Catch Normal [facility] Comment on above: Performed By: #### U CI #### [address] [address] UA Spec Grav 1.025 Normal 1.003-1.035 [facility] Comment on above: Performed By: #### U CI #### [address] [address] UA Urobilinogen 0.2 mg/dL Normal 0.2 - 1.0 [facility] Comment on above: Performed By: #### U CI #### [address] [address] Urobilinogen Qn (U) Small Abnormal Negative [facility] Comment on above: Performed By: #### U CI #### [address] [address] UDS Compon 03-16-2020 Creatinine [Mass/Vol] mg/dL Normal [facility] Comment on above: Performed By: #### C [id number] #### [address] [address] Ur Amph Scrn Positive Abnormal NEG = <1000 [facility] Comment on above: Result Comment: This unconfirmed positive screening result is to be used for medical treatment purposes only. Unconfirmed screening results must not be used for non-medical purposes. (e.g. employment testing, legal testing). Performed By: #### C [id number] #### [address] [address] Ur Anastasia Scrn Negative Normal NEG = <200 [facility] Comment on above: Performed By: #### C [id number] #### [address] [address] Ur Benzodia Scrn Negative Normal NEG = <200 [facility] Comment on above: Performed By: #### C [id number] #### [address] [address] Ur Cannab Scrn Negative Normal NEG = <50 [facility] Comment on above: Performed By: #### C [id number] #### [address] [address] Ur Cocaine Scrn Negative Normal NEG = <300 [facility] Comment on above: Performed By: #### C [id number] #### [address] [address] Ur Methadone Scn Negative Normal NEG = <300 [facility] Comment on above: Performed By: #### C [id number] #### [address] [address] Ur Opiate Scrn Negative Normal NEG = <300 [facility] Comment on above: Performed By: #### C [id number] #### [address] [address] Ur Oxy Screen Negative Normal NEG = <100 [facility] Comment on above: Performed By: #### C [id number] #### [address] [address] Ur Oxy Scrn Qnt 54 ng/mL Normal <=99 [facility] Comment on above: Performed By: #### C [id number] #### [address] [address] Ur PCP Scrn Negative Normal NEG = <25 [facility] Comment on above: Performed By: #### C [id number] #### [address] [address] UA pH 5.0 Normal 4.5 - 7.8 [facility] Comment on above: Performed By: #### C [id number] #### [address] [address] UA Spec Grav 1.024 Normal 1.003-1.035 [facility] Comment on above: Performed By: #### C [id number] #### [facility] [address] [place] [address] HIV Screenon 11-21-2019 HIV Ag/Ab NONREACTIVE NONREACTIVE [place] Comment on above: No laboratory eviden ce of HIV infection. If acute HIV infection is suspected, consider testing for HIV-1 RNA. HCG, Quantitative, on 11-20-2019 hCG Quant [id number] High <5 IU/L [place] Comment on above: Non-preg premeno <=5 Postmeno <=8 Male <=3 If HCG results do not concur with clinical observations, additional testing to confirm results is recommended. Elevated results not associated with may be found in patients with other diseases such as tumors of the germ cells (testis, ovaries, etc.), bladder, pancreas, stomach, lungs, and liver. Interpretation and review of laboratory results Abnormal [place] Hepatitis C Antibodyon 11-19 Hepatitis C Ab REACTIVE Abnormal NONREACTIVE [place] Comment on above: The hepatitis C [...] Interpretation and review of laboratory results Abnormal [place] TYPE AND SCREENon 0 11-20-2019 ABO/Rh Positive [place] Urine Drug Screen, Comprehen siveon 11-20-2019 Amphetamine Screen, Ur Negative NEGATIVE [place] Barbiturate Screen, Ur Negative NEGATIVE [place] Benzodiazepine Screen, Urine Negative NEGATIVE [place] Buprenorphine Urine Negative NEGATIVE [place] Cannabinoid Scrn, Ur Negative NEGATIVE [place] Cocaine Metabolite, Urine Negative NEGATIVE [place] MDMA, Urine NOT REPORTED NEGATIVE [place] Methadone Screen, Urine Negative NEGATIVE [place] Methamphetamine, Urine Negative NEGATIVE [place] Opiates, Urine Negative NEGATIVE [place] Oxycodone Screen, Ur Negative NEGATIVE [place] Phencyclidine, Urine Negative NEGATIVE [place] Propoxyphene, Urine Negative NEGATIVE [place] Test Information NOT REPORTED [place] Tricyclic Antidepressants, Urine Negative NEGATIVE [place] Comment on above: Drug screen results are to be used for medical purposes only. All positive results are unconfirmed. Testing for employment or legal uses should be sent to a reference laboratory for confirmation. HCG, Quantitative, on 06-19-2019 hCG Quant [id number] High <5 IU/L [place] Comment on above: Non-preg premeno <=5 Postmeno <=8 Male <=3 If HCG results do not concur with clinical observations, additional testing to confirm results is recommended. Elevated results not associated with may be found in patients with other diseases such as tumors of the germ cells (testis, ovaries, etc.), bladder, pancreas, stomach, lungs, and liver. Interpretation and review of laboratory results Abnormal [place] HIV Screenon 06-19-2019 HIV Ag/Ab NONREACTIVE NONREACTIVE [place] Comment on above: No laboratory eviden ce of HIV infection. If acute HIV infection is suspected, consider testing for HIV-1 RNA. Hepatitis C Antibodyon 06-19 Hepatitis C Ab REACTIVE Abnormal NONREACTIVE [place] Comment on above: The hepatitis C [...] Interpretation and review of laboratory results Abnormal [place] PROFILE Ion 019 Basophils (Bld) [#/Vol] 10*3/uL [place] Basophils/100 WBC (Bld) 1 % 0 - 2 % [place] Differential Type NOT REPORTED [place] Eosinophils (Bld) [#/Vol] 0.09 10*3/uL [place] Eosinophils/100 WBC (Bld) 2 % 1 - 4 % [place] Erythrocyte distribution width (RBC) [Ratio] 15.7 % High 11.8 - 14.4 % [place] Hematocrit (Bld) [Volume fraction] 36.5 % 36.3 - 47.1 % [place] Hemoglobin (Bld) [Mass/Vol] 11.2 g/dL Low 11.9 - 15.1 g/dL [place] Hepatitis B Surface Ag NONREACTIVE NONREACTIVE [place] Immature granulocytes (Bld) [#/Vol] 0 % 0 [place] Immature granulocytes (Bld) [#/Vol] 10*3/uL [place] Interpretation and review of laboratory results Abnormal [place] Lymphocytes (Bld) [#/Vol] 1.98 10*3/uL [place] Lymphocytes/100 WBC (Bld) 46 % High 24 - 43 % [place] MCH (RBC) [Entitic mass] 25.6 pg 25.2 - 33.5 pg [place] MCHC (RBC) [Mass/Vol] 30.7 g/dL 28.4 - 34.8 g/dL [place] MCV (RBC) [Entitic vol] 83.3 fL 82.6 - 102.9 fL [place] Monocytes (Bld) [#/Vol] 0.37 10*3/uL [place] Monocytes/100 WBC (Bld) 9 % 3 - 12 % [place] Platelet mean volume (Bld) [Entitic vol] 11.6 fL 8.1 - 13.5 fL [place] Platelets (Bld) [#/Vol] NOT REPORTED [place] Platelets (Bld) [#/Vol] 196 10*3/uL [place] RBC (Bld) [#/Vol] 4.38 10*6/uL 3.95 - 5.1 1 m/uL [place] RBC morphology finding Nom (Bld) NOT REPORTED [place] Rubella virus IgG Ql (S) 286.1 IU/mL [place] Comment on above: REFERENCE RANGE: <5.0 NON-REACTIVE (non-immune) 5.0 TO 9.9 EQUIVOCAL >=10.0 REACTIVE (immune) Segmented neutrophils/100 WBC (Bld) 42 % 36 - 65 % [place] Segs Absolute 1.75 [place] T. pallidum, IgG NONREACTIVE NONREACTIVE [place] Comment on above: T. pallidum antibodies are not detected. There is no serological evidence of infection with T. pallidum (early primary syphilis cannot be excluded). Retest in 2-4 weeks if syphilis is clinically suspect. WBC (Bld) [#/Vol] 4.2 10*3/uL [place] WBC (Bld) [#/Vol] 0.0 10*3/uL 0.0 per 10 0 WBC [place] WBC Morphology NOT REPORTED [place] TYPE AND SCREENon 1 ABO/Rh Positive [place] Urine Drug Screen, Comprehen siveon 06-19-2019 Amphetamine Screen, Ur Negative NEGATIVE [place] Barbiturate Screen, Ur Negative NEGATIVE [place] Benzodiazepine Screen, Urine Negative NEGATIVE [place] Buprenorphine Urine Negative NEGATIVE [place] Cannabinoid Scrn, Ur Negative NEGATIVE [place] Cocaine Metabolite, Urine Negative NEGATIVE [place] Interpretation and review of laboratory results Abnormal [place] MDMA, Urine NOT REPORTED [place] Methadone Screen, Urine Negative NEGATIVE [place] Methamphetamine, Urine Negative NEGATIVE [place] Opiates, Urine Negative NEGATIVE [place] Oxycodone Screen, Ur Negative NEGATIVE [place] Phencyclidine, Urine Negative NEGATIVE [place] Propoxyphene, Urine Negative NEGATIVE [place] Test Information NOT REPORTED [place] Tricyclic Antidepressants, Urine Positive Abnormal NEGATIVE [place] Comment on above: Drug screen results are to be used for medical purposes only. All positive results are unconfirmed. Testing for employment or legal uses should be sent to a reference laboratory for confirmation. Comprehensive Metabolic Pane perez 05-09-2019 Albumin [Mass/Vol] 4.3 g/dL 3.5 - 5.2 g/dL [place] Albumin/Globulin [Mass ratio] 1.4 {ratio} [place] ALP [Catalytic activity/Vol] 50 U/L 35 - 104 U/L [place] ALT [Catalytic activity/Vol] 9 U/L 5 - 33 U/L [place] Anion gap [Moles/Vol] 8 mmol/L Low 9 - 17 mmol/L [place] AST [Catalytic activity/Vol] 15 U/L <32 [place] Bilirubin Ql (U) 0.31 mg/dL 0.3 - 1.2 mg/dL [place] Bun/Cre Ratio 20 [place] Calcium [Mass/Vol] 9.4 mg/dL 8.6 - 10. 4 mg/dL [place] Chloride [Moles/Vol] 102 mmol/L 98 - 10 7 mmol/L [place] CO2 [Moles/Vol] 28 mmol/L 20 - 31 mmol/L [place] Creatinine [Mass/Vol] 0.92 mg/dL High 0.5 - 0.9 mg/dL [place] GFR >60 >60 mL/min [place] GFR Non- >60 >60 mL/min [place] Glucose [Mass/Vol] 91 mg/dL 70 - 99 mg/dL [place] Interpretation and review of laboratory results Abnormal [place] Potassium [Moles/Vol] 4.3 mmol/L 3.7 - 5.3 mmol/L [place] Protein [Mass/Vol] 7.4 g/dL 6.4 - 8.3 g/dL [place] Sodium [Moles/Vol] 138 mmol/L 135 - 144 mmol/L [place] Urea nitrogen [Mass/Vol] 18 mg/dL 6 - 20 mg/dL [place] Hepatitis Panel, Acuteon HAV IgM IA Qn (S) NONREACTIVE NONREACTIVE [place] Hep B Core Ab, IgM NONREACTIVE [place]REACTIVE [place] Hepatitis B Surface Ag NONREACTIVE NONREACTIVE [place] Hepatitis C Ab REACTIVE Abnormal NONREACTIVE [place] Comment on above: The hepatitis C [...] Interpretation and review of laboratory results Abnormal [place] Metabolic Panelon 05-09-2019 GFR/1.73 sq M predicted among non-blacks MDRD (S/P/Bld) [Vol rate/Area] [place] Comment on above: Average GFR for 20-2 9 years old: 116 mL/min/1.73sq m Chronic Kidney Disease: <60 mL/min/1.73sq m Kidney failure: <15 mL/min/1.73sq m eGFR calculated using average adult body mass. Additional eGFR calculator available at: http://www.[employer]/multiple_crcl_2012.htm Stage 1: Some kidney damage normal GFR Stage 2: Mild kidney damage GFR 60-89 Stage 3: Moderate kidney damage GFR 30-59 Stage 4: Severe kidney damage GFR 15-29 Stage 5: Severe kidney damage GFR <15 ESRD - chronic treatment by dialysis or transplant Drug Scr, Abuse, Uron 2017 Amphetamine(s),Ur Positive Abnormal NEG [facility] Comment on above: Result Comment: (Pos itive cutoff 1000 ng/mL) Performed By: #### D AU ####[id number] [facility] [place] [address] Barbiturate(s),Ur Negative Normal NEG [facility] Comment on above: Result Comment: (Pos itive cutoff 200 ng/mL) Performed By: #### D AU ####[id number] [place] [address] Base excess Negative Normal NEG [facility] Comment on above: Result Comment: (Pos itive cutoff 300 ng/mL) Performed By: #### D AU ####[address] [address] Benzodiazepine(s) Negative Normal NEG [facility] Comment on above: Result Comment: (Pos itive cutoff 200 ng/mL) Performed By: #### D AU ####[address] [address] Cannabinoid(s),Ur Negative Normal NEG [facility] Comment on above: Result Comment: (Pos itive cutoff 50 ng/mL) Performed By: #### D AU ####[address] [address] Interpretive Info Assay provides medic al screening [...] within 7 days of sample submission.Performed at [facility] [address] [place] [address] Performed By: #### D AU ####[address] [address] Opiate(s), Ur Negative Normal NEG [facility] Comment on above: Result Comment: (Pos itive cutoff 300 ng/mL) Performed By: #### D AU ####[address] [address] Oxycodone, Urine Negative Normal NEG [facility] Comment on above: Result Comment: (Pos itive cutoff 100 ng/mL) Performed By: #### D AU ####[facility] [place] [address] Phencyclidine, Ur Negative Normal NEG [facility] Comment on above: Result Comment: (Pos itive cutoff 25 ng/mL) Performed By: #### D AU ####[address] [address] Urine, methadone presence Negative Normal NEG [facility] Comment on above: Result Comment: (Pos itive cutoff 300 ng/mL) Performed By: #### D AU ####[address] [address] Buprenorphrine, Ur NOT REPORTED Normal NEG [facility] Comment on above: Performed By: #### D AU ####[address] [address] MDMA, Urine NOT REPORTED Normal NEG [facility] Comment on above: Performed By: #### D AU ####[address] [address] Methamphetamine, Ur NOT REPORTED Normal NEG [facility] Comment on above: Performed By: #### D AU ####[address] [address] Propoxyphene,Urine NOT REPORTED Normal NEG [facility] Comment on above: Performed By: #### D AU ####[address] [address] Urine, tricyclic antidepressants NOT REPORTED Normal NEG [facility] Comment on above: Performed By: #### D AU ####[address] [address] Lipid Profileon 11-05-2017 Cholesterol 137 mg/dL Normal <200 [facility] Comment on above: Result Comment: Chol esterol Guidelines: <200 Desirable 200-240 Borderline >240 Undesirable Performed By: #### L IPR ####[facility] [place] [address] Cholesterol to HDL Ratio 4.3 {ratio} Normal <5 [facility] Comment on above: Performed By: #### L IPR ####[facility] [place] [address] HDL Cholesterol 32 mg/dL Low >40 [facility] Comment on above: Result Comment: HDL Guidelines: <40 Undesirable 40-59 Borderline >59 Desirable Performed By: #### L IPR ####[address] [address] LDL Cholesterol 82 mg/dL Normal 0-130 [facility] Comment on above: Result Comment: LDL Guidelines: <100 Desirable 100-129 Near to/above Desirable 130-159 Borderline >159 UndesirableDirect (measured) LDL and calculated LDL are not interchangeable tests. Performed By: #### L IPR ####[facility] [place] [address] Triglyceride 113 mg/dL Normal <150 [facility] Comment on above: Result Comment: Trig lyceride Guidelines: <150 Desirable 150- 199 Borderline 200-499 High >499 Very high Based on AHA Guidelines for fasting triglyceride, June 2012.Performed at [facility] [address] [place] [address] Performed By: #### L IPR ####[facility] [place] [address] Cholesterol in VLDL mass conc NOT REPORTED Normal 1-30 [facility] Comment on above: Performed By: #### L IPR ####[address] [address] Vital Signs Date Time Vital Sign Value Performing Clinician Facility 06-08-2025 11:30-0400 Body weight 87.54 kg Yousif Markus DO Work Phone: [facility] 06-08-2025 11:30-0400 Diastolic blood pressure 72 mm[Hg] Yousif Markus DO Work Phone: [facility] 06-08-2025 11:30-0400 Systolic blood pressure 118 mm[Hg] Yousif Markus DO Work Phone: [facility] 05-20-2025 10:14-0400 Body weight 85.91 kg Mundo Woody ANIMAL CARE SPECIALIST Work Phone: [facility] 05-20-2025 10:14-0400 Diastolic blood pressure 70 mm[Hg] Mundo Bong ANIMAL CARE SPECIALIST Work Phone: [facility] 05-20-2025 10:14-0400 Systolic blood pressure 112 mm[Hg] Mundo Bong ANIMAL CARE SPECIALIST Work Phone: [facility] 05-06-2025 11:44-0400 Body weight 84.94 kg Yousif Markus DO Work Phone: [facility] 04-09-2025 10:03-0400 Body weight 83.12 kg Jody UREÑA Work Phone: [facility] 04-09-2025 10:03-0400 Diastolic blood pressure 64 mm[Hg] Jody UREÑA Work Phone: [facility] 04-09-2025 10:03-0400 Systolic blood pressure 112 mm[Hg] Jody UREÑA Work Phone: [facility] 03-11-2025 11:13-0400 Body weight 81.56 kg Yousif Markus DO Work Phone: [facility] 03-11-2025 11:13-0400 Diastolic blood pressure 70 mm[Hg] Yousif Markus DO Work Phone: [facility] 03-11-2025 11:13-0400 Systolic blood pressure 120 mm[Hg] Yousif Markus DO Work Phone: [facility] 01-19-2025 14:18-0400 Body weight 71.67 kg Yousif Markus DO Work Phone: [facility] 01-19-2025 14:18-0400 Diastolic blood pressure 70 mm[Hg] Yousif Markus DO Work Phone: [facility] 01-19-2025 14:18-0400 Systolic blood pressure 112 mm[Hg] Yousif Markus DO Work Phone: [facility] 01-01-2025 15:12-0400 Body weight 70.36 kg Noms Nurse [facility] 01-01-2025 15:12-0400 Diastolic blood pressure 64 mm[Hg] [facility] Nurse [facility] 01-01-2025 15:12-0400 Systolic blood pressure 110 mm[Hg] [facility] Nurse [facility] 10-21-2024 07:30-0500 Body temperature 97.7 [degF] PHYSICIAN NO [facility] 10-21-2024 07:30-0500 Diastolic blood pressure 77 mm[Hg] PHYSICIAN NO [facility] 10-21-2024 07:30-0500 Heart rate 85 /min PHYSICIAN NO [facility] 10-21-2024 07:30-0500 Respiratory rate 16 /min PHYSICIAN NO [facility] 10-21-2024 07:30-0500 SaO2% (BldA) [Mass fraction] 98 % PHYSICIAN NO [facility] 10-21-2024 07:30-0500 Systolic blood pressure 120 mm[Hg] PHYSICIAN NO [facility] 10-20-2024 14:43-0500 Body height 167.64 cm PHYSICIAN NO [facility] 10-20-2024 09:00-0500 Body weight 56.2 kg PHYSICIAN NO [facility] 10-17-2024 17:00-0500 Diastolic blood pressure 70 mm[Hg] Rochelle Alvarado MD Work Phone: [facility] 10-17-2024 17:00-0500 Heart rate 81 /min Rochelle Alvarado MD Work Phone: [facility] 10-17-2024 17:00-0500 Respiratory rate 16 /min Rochelle Alvarado MD Work Phone: [facility] 10-17-2024 17:00-0500 SaO2% (BldA) [Mass fraction] 100 % Rochelle Alvarado MD Work Phone: [facility] 10-17-2024 17:00-0500 Systolic blood pressure 115 mm[Hg] Rochelle Alvarado MD Work Phone: [facility] 10-17-2024 12:00-0500 Body temperature 95.7 [degF] Rochelle Alvarado MD Work Phone: [facility] 10-17-2024 06:00-0500 Body weight 56.2 kg Rochelle Alvarado MD Work Phone: [facility] 10-16-2024 16:30-0500 Body height 170.18 cm Rochelle Alvarado MD Work Phone: [facility] 10-15-2024 20:45-0500 Diastolic blood pressure 89 mm[Hg] [facility] 10-15-2024 20:45-0500 Heart rate 101 /min [facility] 10-15-2024 20:45-0500 Mean blood pressure 102 mm[Hg] [facility] 10-15-2024 20:45-0500 Respiratory rate 14 /min [facility] 10-15-2024 20:45-0500 Systolic blood pressure 127 mm[Hg] [facility] 10-15-2024 20:00-0500 Heart rate 89 /min [facility] 10-15-2024 19:57-0500 Diastolic blood pressure 83 mm[Hg] [facility] 10-15-2024 19:57-0500 Heart rate 95 /min [facility] 10-15-2024 19:57-0500 Mean blood pressure 94 mm[Hg] [facility] 10-15-2024 19:57-0500 Respiratory rate 14 /min [facility] 10-15-2024 19:57-0500 SaO2% (BldA) [Mass fraction] 99 % [facility] 10-15-2024 19:57-0500 Systolic blood pressure 115 mm[Hg] [facility] 10-15-2024 19:00-0500 Diastolic blood pressure 85 mm[Hg] [facility] 10-15-2024 19:00-0500 Mean blood pressure 93 mm[Hg] [facility] 10-15-2024 19:00-0500 Systolic blood pressure 109 [...] Date Encounter Type Care Provider Facility Start: 06-18-2025 End: 06-18-2025 Clinisync Result Encounter Mundo Woody NP Work Phone: [facility] Unsolicited Start: 06-18-2025 End: 06-18-2025 Clinisync Result Encounter Mundo Woody NP Work Phone: [facility] Unsolicited Start: 06-08-2025 End: 06-08-2025 Bamboo flowsheet Yousif Markus DO Work Phone: [facility] Start: 06-08-2025 End: 06-08-2025 Bamboo flowsheet Yousif Markus DO Work Phone: [facility] Start: 06-08-2025 End: 06-08-2025 Office outpatient visit 15 minutes Yousif Markus DO Work Phone: [facility] Comment on above: Third trimester preg lynette ([facility]); 33 weeks gestation of ([facility]); Gestational diabetes mellitus (GDM) in third trimester, gestational diabetes method of control unspecified ([facility]); H/O pre-eclampsia in prior , currently ([facility]); H/O miscarriage, currently ([facility]) Start: 06-08-2025 End: 06-08-2025 ambulatory YOUSIF MARKUS Not Available Start: 05-21-2025 End: 05-26-2025 Clinisync Result Encounter Mundo Woody NP Work Phone: [facility] Unsolicited Start: 05-21-2025 End: 05-26-2025 Clinisync Result Encounter Mundo Woody NP Work Phone: [facility] Unsolicited Start: 05-20-2025 End: 05-20-2025 Office outpatient visit 15 minutes Mundo Woody NP Work Phone: [facility] Comment on above: Diarrhea, unspecifie d type (Primary Dx); Third trimester ([facility]); 31 weeks gestation of ([facility]); Nausea and vomiting in ([facility]) Start: 05-20-2025 End: 05-20-2025 ambulatory MUNDO BONG Not Available Start: 05-08-2025 End: 05-08-2025 Clinisync Result Encounter Mundo Woody NP Work Phone: [facility] Unsolicited Start: 05-08-2025 End: 05-08-2025 Clinisync Result Encounter Mundo Bong HOLLIS Work Phone: [facility] Unsolicited Start: 05-06-2025 End: 05-06-2025 Bamboo flowsheet Yousif Markus DO Work Phone: [facility] Start: 05-06-2025 End: 05-06-2025 Bamboo flowsheet Yousif Markus DO Work Phone: [facility] Start: 05-06-2025 End: 05-06-2025 Office outpatient visit 15 minutes Yousif Markus DO Work Phone: [facility] Comment on above: Third trimester preg lynette ([facility]); 29 weeks gestation of ([facility]); size inconsistent with dates ([facility]); Low iron; Dizziness; Nausea Start: [...] Comment on above: Second trimester pre gnancy ([facility]); 25 weeks gestation of ([facility]) Start: 04-09-2025 End: 04-09-2025 ambulatory JODY [...] on above: Screening, , for anatomic survey ([facility]); Well woman exam with routine gynecological exam; Exposure to STD; Vaginal discharge; 21 weeks gestation of ([facility]); Second trimester ([facility]); Nausea and vomiting, unspecified [...] End: 01-05-2025 Emergency department patient visit [facility] [facility] Start: 01-01-2025 End: 01-01-2025 Office outpatient visit 5 minutes [facility] Markus Nurse [facility] Comment on above: GA: 11w1d Start: 01-01-2025 End: 01-01-2025 ambulatory YOUSIF GRULLONO Not Available Start: 10-18-2024 Non-patient / Non-visit PHYSICIAN NO [facility] Work Phone: Start: 10-17-2024 End: 10-21-2024 Evaluation and management of inpatient PHYSICIAN NO [facility] Work Phone: Start: 10-16-2024 Non-patient / Non-visit Marc Alvarado MD Work Phone: [facility] Out[facility] Work Phone: Start: 10-15-2024 End: 10-17-2024 Evaluation and management of inpatient Rochelle Alvarado MD Work Phone: [facility] Work Phone: Start: 10-15-2024 End: 10-15-2024 [facility] Start: 07-21-2024 Registered Recurring Rochelle mansfield MD Work Phone: [facility] Start: 07-21-2024 ambulatory Rochelle Alvarado Facility: [facility] Start: 11-26-2023 End: 11-27-2023 ambulatory [facility] Start: 11-05-2023 End: 11-05-2023 ambulatory Haydee Gaytan [facility] Start: 10-30-2023 Clinisync Result Encounter Yousif Markus DO Work Phone: [facility] External Department Unsolicited Start: 10-30-2023 Clinisync Result Encounter Yousif Markus DO Work Phone: [facility] External [facility] Unsolicited Start: 10-29-2023 End: 10-29-2023 ambulatory MD Rochelle Alvarado Work Phone: [facility] Work Phone: Start: 10-29-2023 End: 10-29-2023 Departed Referred MD Rochelle Alvarado Work Phone: [facility] Path [facility] Start: 12-21-2022 End: 12-21-2022 ambulatory IVAN BASHRI . Facility:[facility]1 Start: 11-29-2022 End: 11-29-[address] RODO MENCHACA Facility:[facility]1 Start: 10-25-2022 [facility] Facility:[facility] Start: 10-11-2022 End: 10-11-[address] CHRISTINE SÁNCHEZ Facility:[facility]1 Start: 09-12-2022 End: 09-13-[address] YOUSIF APARICIO . Facility:[facility]1 Start: 08-19-2022 Encounter for preprocedural laboratory examination DR YOUSIF APARICIO . [facility] Start: 08-18-2022 End: 08-18-[address] [...] End: 03-17-2020 Emergency department patient visit [facility] Facility:[facility] Start: 11-20-2019 End: 11-20-2019 Subsequent hospital visit [...] End: 11-07-2017 Evaluation and management of inpatient [facility] Procedures Date Procedure Procedure Detail Performing Clinician Start: 06-18-2025 ALL CBC WITH AUTO DIFF Mundo Woody ANIMAL CARE SPECIALIST Work Phone: Start: 06-08-2025 Urnls dip stick/tabl et rgnt non-auto w/o micrscp Yousif Markus DO Work Phone: Start: 05-21-2025 OVA + PARASITE EXAM Janeth Woody ANIMAL CARE SPECIALIST Work Phone: Start: 05-20-2025 Urnls dip stick/tabl et rgnt non-auto w/o micrscp Mundo Woody ANIMAL CARE SPECIALIST Work Phone: Start: 05-08-2025 GLUCOSE 1 HOUR Mundo Woody ANIMAL CARE SPECIALIST Work Phone: Start: 05-06-2025 Urnls dip stick/tabl et rgnt non-auto w/o micrscp Yousif Markus DO Work Phone: Start: 04-09-2025 Urnls dip stick/tabl et rgnt non-auto w/o micrscp Jody UREÑA Work Phone: Start: 03-11-2025 RECURRENT VAGINITIS (HTRX) Yousif Markus DO Work Phone: Start: 03-11-2025 Urnls dip stick/tabl et rgnt non-auto w/o micrscp Yousif Markus DO Work Phone: Start: 03-11-2025 IGP,APTIMA HPV,AGE GDLN Stunable DO Work Phone: Start: 03-11-2025 Microscopic observat ion [Identifier] in Cervix by Cyto stain Stunable DO Work Phone: Start: 01-19-2025 Urnls dip stick/tabl et rgnt non-auto w/o micrscp Bilbuso DO Work Phone: Start: 01-07-2025 BOX TEST Black Ocean DO Work Phone: Start: 01-01-2025 Urnls dip stick/tabl et rgnt non-auto w/o micrscp Bilbuso DO Work Phone: Start: 10-16-2024 MRI of head Rochelle warren MD Work Phone: Start: 10-15-2024 Respiratory Panel (PCR) Rochelle Alvarado MD Work Phone: Start: 10-30-2023 [facility] CBC WITH PLATEL ET NO DIFFERENTIAL [employer]if [employer] Work Phone: Start: 04-26-2020 Acute hepatitis panel E lambertojim Pabon Work Phone: Start: 04-26-2020 Antibody hiv-1&hiv-2 single result Anthony Pabon Work Phone: Start: 04-26-2020 Blood count complete automated Anthony Pabon Work Phone: Start: 04-26-2020 Comprehensive metabo lic panel Anthony Pabon Work Phone: Start: 04-26-2020 Gonadotropin chorion ic qualitative Anthony Hammonder Work Phone: Start: 04-26-2020 Urinalysis microscopic [...] Phone: Start: 11-06-2017 DISCHARGE PATIENT LUIS E EP SPICER Start: 11-05-2017 URINE DRUG SCREEN LUIS E EP SPICER Start: 11-05-2017 NURSING COMMUNICATION S VIKA BARRIOSPTA Start: 11-05-2017 Lipid panel ANGELO BREWERY TECHNICIAN Start: 11-05-2017 DIET GENERAL ANGELO BREWERY TECHNICIAN Start: 11-05-2017 FULL CODE ANGELO BREWERY TECHNICIAN Start: 11-05-2017 IP CONSULT TO HISTOR Y AND PHYSICAL ANGELO BARRIOSPTA Start: 11-05-2017 MISCELLANEOUS NURSIN G CARE ORDER (SPECIFY) ANGELO BARRIOSPTA Start: 11-05-2017 OFF UNIT PRIVILEGES DONNA BARRIOSPTA Start: 11-05-2017 PATIENT STATUS (DIRECT) ANGELO SPICER Plan of Treatment Date Care Activity Detail Author Start: 03-11-2028 Screening for malign ant neoplasm of cervix [facility] Start: 06-23-2025 End: 06-23-2025 Patient encounter procedure 06/23/2025 3:00 PM EDT Routine [facility] [address] [place] [phone] Mundo Woody, ANIMAL CARE SPECIALIST [address] [place] [phone] [facility] Start: 06-23-2025 End: 06-23-2025 Professional / ancillary services management 06/23/2025 2:30 PM EDT Ancillary Procedure [facility] [address] [place] [phone] [facility] Start: 06-08-2025 End: 06-08-2025 Patient encounter procedure 06/08/2025 11:10 AM EDT Routine [facility] [address] [place] [phone] Yousif Aparicio DO [address] [place] [address] Arrived [facility] Comment on above: Arrived Start: 06-03-2025 End: 06-03-2025 Patient encounter procedure 06/03/2025 11:30 AM EDT Routine [facility] [address] [facility] [place] [phone] Yousif Aparicio DO [address] [facility] [address] [place], [place] [phone] [facility] Start: 05-20-2025 End: 05-20-2026 Ova and [...] procedure 05/20/2025 9:50 AM EDT Routine [facility] [address] [place] [address] [place] [phone] Mundo Woody, TELMA [address] [place] [phone] [facility] Start: 05-20-2025 End: 05-20-2025 Professional / ancillary services management 05/20/2025 9:30 AM EDT Ancillary Procedure CHARBEL GIANG [address] [facility] [place] [phone] [facility] Start: 05-18-2025 Influenza vaccination Influenza Vacc ine (#1) [facility] Start: 05-06-2025 End: 05-06-2026 Transferrin [Mass/volume] in Serum or Plasma Transferrin Lab Routine Low iron Dizziness Expected: 05/06/2025 (Approximate), Expires: 05/06/2026 [facility] Work Phone: Comment on above: Expected: 05/06/2025 (Approximate), Expires: 05/06/2026 Start: 05-06-2025 End: 09-05-2025 US for US OB follow up transabdominal approach Imaging Routine size inconsistent with dates ([facility]) Expected: 05/06/2025, Expires: 09/05/2025 [facility] Comment on above: Expected: 05/06/2025 , Expires: 09/05/2025 Start: 05-06-2025 End: 05-06-2025 Patient encounter procedure 05/06/2025 11:30 AM EDT Office Visit CHARBEL GIANG [address] [facility] [facility] [place] [phone] Yousif Aparicio DO [address] [facility] [address] [place], [place] [phone] Arrived [facility] [place] [facility] Comment on above: Arrived Start: 04-09-2025 End: 04-09-2025 Patient encounter procedure 04/09/2025 9:50 AM EDT Routine [facility] [address] [facility] [place] [phone] Jody Kimble PA [address] [place] [address] Arrived [facility] Comment on above: Arrived Start: 04-08-2025 End: 04-08-2025 Patient encounter procedure 04/08/2025 11:20 AM EDT Routine [facility] [address] [facility] [place] [phone] Jody Kimble, PA [address] [place] [address] [facility] Start: 03-25-2025 End: 03-25-2025 Professional / ancillary services management 03/25/2025 11:00 AM EDT Ancillary Procedure [facility] [address] [facility] [place] [phone] [facility] Start: 03-11-2025 End: 04-10-2025 Alpha fetoprotein, maternal Alpha fetoprotein, maternal Lab Routine Screening, , for anatomic survey ([facility]) 21 weeks gestation of ([facility]) Second trimester ([facility]) Expected: 03/11/2025 (Approximate), Expires: 04/10/2025 [facility] Comment on above: Expected: 03/11/2025 (Approximate), Expires: 04/10/2025 Start: 03-11-2025 End: 06-11-2025 US for US OB 14+ weeks anatomy scan Imaging Routine Screening, , for anatomic survey ([facility]) Expected: 03/11/2025, Expires: 06/11/2025 [facility] Comment on above: Expected: 03/11/2025 , Expires: 06/11/2025 Start: 02-16-2025 End: 02-16-2025 Patient encounter procedure 02/16/2025 3:30 PM EDT Routine [facility] [address] [place] [address] Jody Kimble PA [address] [place] [address] [facility] Start: 01-19-2025 End: 01-19-2026 CBC panel - Blood by Automated count CBC Lab Routine Diabetes mellitus screening Expected: 01/19/2025 (Approximate), Expires: 01/19/2026 [facility] Work Phone: Comment on above: Expected: 01/19/2025 (Approximate), Expires: 01/19/2026 Start: 01-19-2025 End: 01-19-2026 Measurement of glucose 1 hour after glucose challenge for glucose tolerance test Glucose tolerance, 1 hour Lab Routine Diabetes mellitus screening Expected: 01/19/2025 (Approximate), Expires: 01/19/2026 [facility] Comment on above: Expected: 01/19/2025 (Approximate), Expires: 01/19/2026 Start: 01-19-2025 End: 01-19-2025 Patient encounter procedure 01/19/2025 2:00 PM EDT Routine [facility] OB [address] [place] [phone] Yousif Aparicio, DO [address] [place] [address] [facility] Start: 01-01-2025 End: 01-01-2026 ABO/Rh ABO/Rh Lab Routine Missed menses , unspecified gestational age Expected: 01/01/2025 (Approximate), Expires: 01/01/2026 [facility] Comment on above: Expected: 01/01/2025 (Approximate), Expires: 01/01/2026 Start: 01-01-2025 End: 01-01-2026 Blood type and Indirect antibody screen panel - Blood Type and screen Lab Routine Missed menses , unspecified gestational age Expected: 01/01/2025 (Approximate), Expires: 01/01/2026 [facility] Work Phone: Comment on above: Expected: 01/01/2025 (Approximate), Expires: 01/01/2026 Start: 01-01-2025 End: 01-01-2026 Drugs of abuse panel - Urine by Screen method Rapid drug screen, urine Lab Routine , unspecified gestational age Encounter for supervision of normal first in first trimester Expected: 01/01/2025 (Approximate), Expires: 01/01/2026 [facility] Comment on above: Expected: 01/01/2025 (Approximate), Expires: 01/01/2026 Start: 10-21-2024 [facility] Start: 10-17-2024 Hospital admission [facility] Start: 10-17-2024 [facility] Start: 10-17-2024 [facility] Start: 10-17-2024 [facility] Start: 10-16-2024 [facility] Start: 10-16-2024 Referral to [employer] [facility] Start: 10-15-2024 Referral to psychiatrist [facility] Start: 10-15-2024 Referral to neurologist [facility] Start: 10-15-2024 Hospital admission [facility] Start: 01-12-2024 Screening for malign ant neoplasm of cervix HPV/Cotest [facility] Start: 12-12-2021 End: 02-11-2022 CBC W Auto Differential panel - Blood CBC + DIFF Lab Routine Iron deficiency anemia, unspecified iron deficiency anemia type Expected: 12/12/2021, Expires: 02/11/2022 [facility] Work Phone: Comment on above: Expected: 12/12/2021 , Expires: 02/11/2022 Start: 05-18-2021 Influenza vaccination INFLUENZA (#1) [facility] Start: 06-26-2020 Cervical cancer screen [facility] [place] Comment on above: Postponed from 01/11 (Not Indicated) Start: 06-26-2020 Screening for malign ant neoplasm of cervix Cervical cancer screen [place] Comment on above: Postponed from 01/11 (Not Indicated) Start: 05-18-2020 Influenza vaccination Flu vaccine (# 1) [place] Start: 11-21-2019 End: 11-21-2019 Ancillary Procedure 11/21/2019 Ancillary Procedure Obstetrics and Gynecology [facility] Start: 06-26-2019 End: 06-26-2019 Routine 06/26/2019 Routine Obstetrics and Gynecology Georgette Leung APRN - BRIAN [address] [place] [address] [phone] [facility] [employer] 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 Start: 05-18-2019 Influenza vaccination Flu vaccine (# 1) [place] Start: 2015 Cervical cancer screen Cervical canc er screen [place] Start: 2015 PAP TESTING PAP TESTING [facility] Start: 2013 DTaP/Tdap/Td vaccine (1 - Tdap) DTaP/Tdap/Td vaccine (1 - Tdap) [place] Start: 2013 Urine microalbumin profile DTAP,TDAP,TD (1 - Tdap) [facility] Start: 01-12-2012 HEPATITIS C SCREENING HEPATITIS C SC IHSAN [facility] Start: 01-12-2012 HIV SCREENING HIV SCREENING [facility] Start: 2009 HPV vaccine (1 - Fem larissa 3-dose series) HPV vaccine (1 - Female 3-dose series) [place] Start: 2007 Varicella Vaccine (1 of 2 - 13+ 2-dose series) Varicella Vaccine (1 of 2 - 13+ 2-dose series) [place] Start: 2006 Adult depression screening assessment DEPRESSION SCREENING [facility] Start: 2005 DTaP/Tdap/Td vaccine (1 - Tdap) DTaP/Tdap/Td vaccine (1 - Tdap) [place] Start: 2005 HPV vaccine (1 - 2-d ose series) HPV vaccine (1 - 2-dose series) [place] Start: 2005 HPV vaccine (1 - Fem larissa 2-dose series) HPV vaccine (1 - Female 2-dose series) [place] Start: 01-12-2000 Pneumococcal 0-64 ye ars Vaccine (1 of 1 - PPSV23) Pneumococcal 0-64 years Vaccine (1 of 1 - PPSV23) [place] Start: 1999 COVID-19 VACCINE (1) COVID-19 VACCIN E (1) [facility] Start: 1995 Varicella vaccine (1 of 2 - 2-dose childhood series) Varicella vaccine (1 of 2 - 2-dose childhood series) [place] End: 11-20-2019 Bacteria identified Cx Nom (U) Urine Culture Microbiology Routine Amenorrhea Positive urine test Encounter for supervision of normal in first trimester, unspecified 1 Occurrences starting 11/20/2019 until 11/20/2019 [place] Comment on above: 1 Occurrences starti ng 11/20/2019 until 11/20/2019 Bacteria identified Cx Nom (U) [place] End: 06-19-2019 Bacteria identified Cx Nom (U) Urine Culture Microbiology Routine Amenorrhea Positive urine test Encounter for supervision of normal in first trimester, unspecified 1 Occurrences starting 06/19/2019 until 06/19/2019 [facility] [place] Comment on above: 1 Occurrences starti ng 06/19/2019 until 06/19/2019 Bacteria identified in Urine by Culture Urine culture Microbiology Routine Missed menses Ordered: 01/01/2025 [facility] Comment on above: Ordered: 01/01/2025 End: 11-20-2019 C.trachomatis N.gonorrhoeae DNA, Urine C.trachomatis N.gonorrhoeae DNA, Urine Microbiology Routine Amenorrhea Positive urine test Encounter for supervision of normal in first trimester, unspecified 1 Occurrences starting 11/20/2019 until 11/20/2019 [place] Comment on above: 1 Occurrences starti ng 11/20/2019 until 11/20/2019 C.trachomatis N.gonorrhoeae DNA, Urine [facility] [employer] [place] End: 06-19-2019 C.trachomatis N.gonorrhoeae DNA, Urine C.trachomatis N.gonorrhoeae DNA, Urine Microbiology Routine Amenorrhea Positive urine test Encounter for supervision of normal in first trimester, unspecified 1 Occurrences starting 06/19/2019 until 06/19/2019 [place] Comment on above: 1 Occurrences starti ng 06/19/2019 until 06/19/2019 CBC W Auto Different ial panel - Blood CBC and differential Lab Routine Missed menses , unspecified gestational age Ordered: 01/01/2025 [facility] Comment on above: Ordered: 01/01/2025 CHLAMYDIA TRACHOMATI S (GENITO/STI) CHLAMYDIA TRACHOMATIS (GENITO/STI) Lab Routine Exposure to STD Ordered: 03/11/2025 [facility] Comment on above: Ordered: 03/11/2025 Cytology Cervical or vaginal smear or scraping study Pap Smear Pathology and Cytology Routine Well woman exam with routine gynecological exam Ordered: 03/11/2025 [facility] Comment on above: Ordered: 03/11/2025 Ferritin [Mass/volum e] in Serum or Plasma Ferritin Lab Routine Low iron Dizziness Ordered: 05/06/2025 [facility] Comment on above: Ordered: 05/06/2025 Hemoglobin A1c/Hemoglobin.total in Blood Hemoglobin A1c Lab Routine Missed menses , unspecified gestational age Ordered: 01/01/2025 [facility] Comment on above: Ordered: 01/01/2025 Hepatitis A virus antibody, IgM type [facility] Hepatitis B core antibody measurement, IgM type [facility] Hepatitis B virus surface Ag [Presence] in Serum or Plasma by Immunoassay [facility] Hepatitis B virus surface Ag [Presence] in Serum or Plasma by Immunoassay Hepatitis B surface antigen Lab Routine Missed menses , unspecified gestational age Ordered: 01/01/2025 [facility] Comment on above: Ordered: 01/01/2025 End: 04-26-2020 Hepatitis C RNA, quantitative, PCR Hepatitis C RNA, quantitative, PCR Lab Routine Once for 1 Occurrences starting 04/26/2020 until 04/26/2020 [place] Comment on above: Once for 1 Occurrenc es starting 04/26/2020 until 04/26/2020 Hepatitis C RNA, quantitative, PCR Hepatitis C RNA, quantitative, PCR Lab Routine 04/26/2020 7:30 AM EDT [place] Hepatitis C virus Ab [Presence] in Serum or Plasma by Immunoassay Hepatitis C antibody Lab Routine Missed menses , unspecified gestational age Ordered: 01/01/2025 [facility] Comment on above: Ordered: 01/01/2025 Hepatitis C virus Ig G Ab [Presence] in Serum or Plasma by Immunoassay [facility] HIV 1+2 Ab+HIV1 p24 Ag [Presence] in Serum or Plasma by Immunoassay [facility] End: 05-09-2019 HIV Screen HIV Screen Lab Routine Once for 1 Occurrences starting 05/09/2019 until 05/09/2019 [place] Comment on above: Once for 1 Occurrenc es starting 05/09/2019 until 05/09/2019 HIV Screen HIV Screen Lab R outine 05/09/2019 2:53 PM EDT [place] HIV-1/HIV-2 antigen/antibody combination immunoassay HIV-1 and HIV-2 antibodies Lab Routine Missed menses , unspecified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
== END 2025-06-30 19:28 | disposition home or self-care (01) ==
LOC: LAB 19:27
PROVIDERS: Visit Provider Physician Assistant
DX: Z34.93 Encounter for supervision of normal pregnancy, unspecified, third trimester (principal); Z3A.36 36 weeks gestation of pregnancy
CPT/HCPCS: 87081

== ENCOUNTER 2025-07-08 21:31 | Observation (INO) | payer OTHER, SELFPAY ==
--- OUTSIDE RECORDS SUMMARY | 2024-10-16 10:30 | XMS_ITS ---
Author Organization [facility] Servic es Address [address] [place] [address] Care Team Providers Care Repeater Operator Name Role Phone Jennie Harris Primary Care Provider Prisca Moss Unavailable [phone] REASON FOR VISIT CHRONIC CARE/ MED CHECK Encounters Encounter Location Date Provider Diagnosis [facility] [address] [place] [address] 10/16/2024 Prisca Moss Plan Of Treatment No Information Progress Notes * NOE ERVINDOB: 4 (30 yo F)Acc No.[id number]:10/16/2024 Progress Notes Patient: NOE BOSTON :?Prisca DaveDOB:1995???Age:29 Y???Sex:Female Date:10/16/2024Phone:[phone]:[address] [place], [place] [address] Pcp:Jennie Harris Subjective: * Chief Complaints: * C HRONIC CARE/ MED CHECK Billing Information: * Procedure Codes: * Electronic signature of Prisca Moss CNP on 07/08/2025 at 09:36 PM EDTSign off status: Pending * Provider: Jayla Daev Date: 0 10/16/2024 Generated for Printing/Faxing/eTransmitting on:?07/08/2025 09:36 PM EDT
--- OUTSIDE RECORDS SUMMARY | 2024-11-20 11:00 | XMS_ITS ---
Author Organization [facility] Servic es Address [address] [place] [address] Care Team Providers Care Front Office Representative Name Role Phone Jennie Harris Primary Care Provider Prisca Moss Unavailable [phone] REASON FOR VISIT 4-6 week f/u med check Encounters Encounter Location Date Provider Diagnosis [facility] [address] [place] [address] 11/20/2024 Prisca Moss Plan Of Treatment No Information Progress Notes * NOE ERVINDOB: 4 (30 yo F)Acc No.[id number]:11/20/2024 Progress Notes Patient: NOE BOSTON :?Prisca DaveDOB:1995???Age:29 Y???Sex:Female Date:11/20/2024Phone:[phone]:[address] [place], [place] [address] Pcp:Jennie Harris Subjective: * Chief Complaints: * 4 -6 week f/u med check * Electronic signature of Prisca Moss CNP on 07/08/2025 at 09:35 PM EDTSign off status: Pending * Provider: Jayla Dave Date: 0 11/20/2024 Generated for Printing/Faxing/eTransmitting on:?07/08/2025 09:35 PM EDT
--- OUTSIDE RECORDS SUMMARY | 2025-01-20 11:15 | XMS_ITS ---
Author Organization [facility] Servic es Address [address] [place] [address] Care Team Providers Care Event Promotions Coordinator Name Role Phone Jennie Harris Primary Care Provider Prisca Moss Unavailable [phone] Jamila Winter Unavailable REASON FOR VISIT MEDICATION QUESTIONS PT IS Encounters Encounter Location Date Provider Diagnosis [facility] [address] [address] 01/20/2025 Jamila Winter Plan Of Treatment No Information Progress Notes * NOE ERVINDOB: 4 (30 yo F)Acc No.[id number]:01/20/2025 Progress Notes Patient: Lorrie MONTESMICHAEL NOE :?Jamila Choudhary CNPDOB:1995???Age:30 Y ???Sex:FemaleDate:01/20/2025Phone:[phone]:[address] [place] [address]Pcp:Jennie Harris Subjective: * Chief Complaints: * M EDICATION QUESTIONS PT IS Billing Information: * Procedure Codes: * Electronic signature of MASSIEL Bales on 07/08/2025 at 09:37 PM EDTSign off status: Pending * Provider: Lorrie Choudhary CNP Date: 0 01/20/2025 Generated for Printing/Faxing/eTransmitting on:?07/08/2025 09:37 PM EDT
--- OUTSIDE RECORDS SUMMARY | 2025-01-26 09:45 | XMS_ITS ---
Author Organization [facility] Servic es Address [address] [facility] [place] [address] Care Team Providers Care Diesel Mechanic Farm Name Role Phone Jennie Harris Primary Care Provider Prisca Moss Unavailable [phone] Marla Edwards Unavailable [phone] REASON FOR VISIT MEDICATION QUESTIONS PT IS Encounters Encounter Location Date Provider Diagnosis [facility] [address] [place] [address] 01/26/2025 Marla Edwards Plan Of Treatment No Information Progress Notes * NOE ERVINDOB: 4 (30 yo F)Acc No.[id number]:01/26/2025 Progress Notes Patient: NOE BOSTON Provider:?SCOOBY CALVERT:1995 ???Age:30 Y???Sex:FemaleDate:01/26/2025Phone:[phone]:[address] [place] [address]Pcp:Jennie Harris Subjective: * Chief Complaints: * M EDICATION QUESTIONS PT IS Billing Information: * Procedure Codes: * Electronic signature of Marla Edwards DO on 07/08/2025 at 09:36 PM EDTSign off status: Pending * Appointment Provider: Lorrie WALSH DO Date: 0 01/26/2025 Generated for Printing/Faxing/eTransmitting on:?07/08/2025 09:36 PM EDT
--- OUTSIDE RECORDS SUMMARY | 2025-02-11 09:30 | XMS_ITS ---
Author Organization [facility] Serv[facility] es Address [address] [facility] [place] [address] Care Team Providers Care Machine Stuffer Automatic Name Role Phone Jennie Harris Primary Care Provider Prisca Moss Unavailable [phone] REASON FOR VISIT casandra prisca Encounters Encounter Location Date Provider Diagnosis [address] [place] [address] 02/11/2025 Jennie Harris Plan Of Treatment No Information Progress Notes * NOE ERVINDOB: 4 (30 yo F)Acc No.[id number]:02/11/2025 Progress Notes Patient: NOE BOSTON :?CHRIS HenningCDOB:1995???Age:30 Y ???Sex:FemaleDate:02/11/2025Phone:[phone]:[address] [place], [place] [id number] Subjective: * Chief Complaints: * T oc prisca Billing Information: * Procedure Codes: * Electronic signature of Jennie Harris CNP on 07/08/2025 at 09:37 PM EDTSign off status: Pending * Provider: JUANI Martinez Date: 0 02/11/2025 Generated for Printing/Faxing/eTransmitting on:?07/08/2025 09:37 PM EDT
--- OUTSIDE RECORDS SUMMARY | 2025-05-07 09:15 | XMS_ITS ---
Author Organization [facility] Serv[facility] es Address [address] [facility] [place] [address] Care Team Providers Care Bear Keeper Name Role Phone Jennie Harris Primary Care Provider [phone] KaylijacquiPrisca [phone] REASON FOR VISIT vomiting/diarrhea while Encounters Encounter Location Date Provider Diagnosis [place] [address] [facility] [place] [address] 05/07/2025 Jennie Harris Plan Of Treatment No Information Progress Notes * NOE ERVINDOB: 4 (30 yo F)Acc No.[id number]:05/07/2025 Progress Notes Patient: NOE BOSTON :?CHRIS HenningCDOB:1995???Age:30 Y ???Sex:FemaleDate:05/07/2025Phone:[phone]:[address] [place], [place] [address] Subjective: * Chief Complaints: * V omiting/diarrhea while Billing Information: * Procedure Codes: * Electronic signature of Jennie Harris CNP on 07/08/2025 at 09:35 PM EDTSign off status: Pending * Provider: JUANI Martinez Date: 0 05/07/2025 Generated for Printing/Faxing/eTransmitting on:?07/08/2025 09:35 PM EDT
--- OUTSIDE RECORDS SUMMARY | 2025-06-30 13:00 | XMS_ITS | Encounter Summary ---
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 Name Role Phone Unavailable Primary Care Provider Unavailabl e Encounter Details DateTypeDepartmentCare Team (Latest Contact Info)Jzunesswrfz55/14/2025 1:00 PM EDTAncillary Procedure [facility] [address] [place] [phone] DANICA (amniotic fluid index) borderline low Social History Tobacco UseTypesPacks/DayYears UsedDateSmoking Tobacco: NeverSmokeless Tobacco: NeverAlcohol UseStandard Drinks/WeekCommentsNever0 (1 standard drink = 0.6 oz pure alcohol)PHQ-2AnswerDate RecordedPatient Health Questionnaire-2 Score0 06/11/2025Estimated Date of PzdwtlzpOdjwqgncSyw59/05/2025Based on UltrasoundSex and Gender InformationValueDate RecordedSex Assigned at BirthNot on fileLegal MouUnawae00/15/2023 8:06 PM EDTGender IdentityNot on fileSexual OrientationNot on filedocumented as of this encounter Plan of Treatment Not on file documented as of this encounter Procedures Procedure NamePriorityDate/TimeAssociated DiagnosisCommentsUS OB LIMITED 1+ UKCVUUNHgmobxg53/14/2025 1:18 PM EDT DANICA (amniotic fluid index) borderline low documented in this encounter Results * OB limited 1+ fetuses (06/30/2025 1:18 PM EDT)Anatomical RegionLaterality ModalityBodyUltrasoundSpecimen (Source)Anatomical Location / Laterality Collection Method / VolumeCollection TimeReceived Time06/30/2025 2:30 PM EDT Impressions 06/30/2025 2:51 PM EDT 1. Single viable intrauterine (normal and cardiac activity) 2. ?? DANICA 13.4 cm increased from prior examination of May 20, 2025, 9.6 cm. TRANSCRIBED BY: ? ELECTRONICALLY SIGNED BY: Kobe Sotelo MD [facility] 06/30/2025 2:51 PM EDT FINDINGS: Comparison made with prior examination of May 20, 2025. Single viable intrauterine, cephalic presentation, normal and cardiac [id number] bpm. Normal normal amniotic fluid volume, 13.0 cm, largest fluid pocket 5.0 cm. Gestational age of 36 weeks, 5 days with an estimated delivery date of July 22, 2025. Procedure Note Kobe Sotelo MD - 06/30/2025 FINDINGS: Comparison made with prior examination of May 20, 2025. Single viable intrauterine, cephalic presentation, normal andcardiac [id number] bpm. Normal normal amniotic fluid volume, 13.0 cm, largest fluid pocket 5.0cm. Gestational age of 36 weeks, 5 days with an estimated delivery date ofJuly 22, 2025. IMPRESSION: 1. Single viable intrauterine (normal and cardiacactivity) 2. DANICA 13.4 cm increased from prior examination of May 20, 2025,9.6 cm. TRANSCRIBED BY: ELECTRONICALLY SIGNED BY: Kobe Sotelo MD Authorizing ProviderResult TypeResult StatusKrgonzalez Woody NPIMG OB US PROCEDURESFinal Result documented in this encounter Visit Diagnoses Diagnosis DANICA (amniotic fluid index) borderline low Nonspecific abnormal finding in amniotic fluid documented in this encounter
--- OUTSIDE RECORDS SUMMARY | 2025-06-30 13:50 | XMS_ITS | Encounter Summary ---
Author Organization [facility] Address [address] [place] [address] Care Team Providers Care Studio Coordinator Name Role Phone Unavailable Primary Care Provider Unavailabl e Reason for Visit * ReasonCommentsRoutine Visit Encounter Details DateTypeDepartmentCare Team (Latest Contact Info)Wlmzlnawcew11/14/2025 1:50 PM EDTRoutine [facility] [address] [place] [address] Jody Kimble PA [address] [place] [address] Third trimester ([facility]); 36 weeks gestation of ([facility]); H/O pre-eclampsia in prior , currently ([facility]); H/O miscarriage, currently ([facility]); History of gestational diabetes; Anemia, unspecified type Social History Tobacco UseTypesPacks/DayYears UsedDateSmoking Tobacco: NeverSmokeless Tobacco: NeverAlcohol UseStandard Drinks/WeekCommentsNever0 (1 standard drink = 0.6 oz pure alcohol)PHQ-2AnswerDate RecordedPatient Health Questionnaire-2 Score0 06/11/2025Estimated Date of NgnhzhkoYrugujxgPsd97/05/2025Based on UltrasoundSex and Gender InformationValueDate RecordedSex Assigned at BirthNot on fileLegal MkcBepbbs93/15/2023 8:06 PM EDTGender IdentityNot on fileSexual OrientationNot on filedocumented as of this encounter Last Filed Vital Signs Vital SignReadingTime TakenCommentsBlood Lgxvmpyl584/7410/ 1:48 PM EDT Pulse--Temperature--Respiratory Rate--Oxygen Saturation--Inhaled Oxygen Concentration--Ajoqdz18.9 kg (196 lb)06/30/2025 1:48 PM EDTHeight--Body Mass Index--documented in this encounter Progress Notes * ADELITA Lim - 06/30/2025 1:50 PM EDT Reason for Appointment: Patient ID: Magaly [...] mg, Oral, Every 6 hours PRN ALLERGIES Allergies[1] PROBLEMS Active Ambulatory Problems Diagnosis Date Noted History of gestational diabetes 06/30/2025 H/O pre-eclampsia in prior , currently ([facility]) 06/30/2025 Anemia 06/30/2025 Resolved Ambulatory Problems Diagnosis Date Noted No Resolved Ambulatory Problems Past Medical History: Diagnosis Date Anxiety Bipolar disorder ([facility]) Depression Fibromyalgia Gestational diabetes ([facility]) Insomnia Irritable bowel syndrome with constipation Opioid abuse ([facility]) Tobacco user HISTORY PAST MEDICAL HISTORY SOCIAL HISTORY Medical History[2] Social History Tobacco Use Smoking status: Never Smokeless tobacco: Never Substance Use Topics Alcohol use: Never Drug use: Never FAMILY HISTORY Family History[3] SURGICAL HISTORY Surgical History[4] REVIEW OF SYSTEMS Review of Systems: Review of Systems Constitutional: Negative. HENT: Negative. Eyes: Negative. Respiratory: Negative. Cardiovascular: Negative. Gastrointestinal: Negative. Genitourinary: Negative. Musculoskeletal: Negative. Skin: Negative. Neurological: Negative. All other systems reviewed and are negative. Hematological: Negative. Endocrine: Negative. Allergic/Immunologic: Negative. OBJECTIVE Objective: Physical Exam Constitutional: Appearance: Normal appearance. Genitourinary: Right Adnexa: not tender and no mass present. Left Adnexa: not tender and no mass present. No cervical discharge. Breasts: Breasts are soft. Right: Normal. Left: Normal. HENT: Head: Normocephalic. Nose: Nose normal. Mouth/Throat: Mouth: Mucous membranes are moist. Cardiovascular: Rate and Rhythm: Normal rate. Pulmonary: Effort: Pulmonary effort is normal. Abdominal: General: Bowel sounds are normal. Palpations: Abdomen is soft. Musculoskeletal: General: Normal range of motion. Cervical back: Normal range of motion. Neurological: General: No focal deficit present. Mental Status: She is alert. Skin: General: Skin is warm and dry. Psychiatric: Mood and Affect: Mood normal. Vitals and nursing note reviewed. Exam conducted with a cosmetic counselor present. Vitals: There is no height or weight on file to calculate BMI. BP: 118/74 Patient's last menstrual period was 10/21/2024 (exact date). ASSESSMENT & PLAN ICD-10-CM 1. Third trimester ([facility]) Z34.93 POCT urinalysis dipstick manually resulted CULTURE, GROUP B STREP WITH SUSCEPTIBLITY CULTURE, GROUP B STREP WITH SUSCEPTIBLITY 2. 36 weeks gestation of ([facility]) Z3A.36 3. H/O pre-eclampsia in prior , currently ([facility]) O09.299 4. H/O miscarriage, currently ([facility]) O09.299 5. History of gestational diabetes Z86.32 6. Anemia, unspecified type D64.9 Return OB: Patient presents today for a routine obstetrics appointment. Patient is currently 36w6d . Patient states she is doing well but has complaints of being tired due to current . Patient has verbalizes frequent movement. labor precautions was discussed/given and patient was instructed to perform kick counts three times a day. Pt declined the LARC she is planning zarina salpingectomy after delivery. Pt was swabbed for GBS by Jody Kimble. Pt desired a vaginal check dueto having more vaginal pressure and being uncomfortable. Patient measured a fingertip at today's visit. Orders Placed This Encounter Procedures CULTURE, GROUP B STREP WITH SUSCEPTIBLITY POCT urinalysis dipstick manually resulted Follow Up: Patient is to return to office in 1 week for routine OB appointment. Documented by Shira Solano MA on behalf of: ADELITA Lim [1] Allergies Allergen Reactions Bupropion Other Reaction(s): Seizure [2] Past Medical History: Diagnosis Date Anxiety Bipolar disorder ([facility]) Depression Fibromyalgia Gestational diabetes ([facility]) Insomnia Irritable bowel syndrome with constipation Opioid abuse ([facility]) Tobacco user [3] No family history on file. [4] Past Surgical History: Procedure Laterality Date DILATION AND CURETTAGE 08/18/2022 PAP SMEAR 08/04/2021 Normal documented in this encounter Plan of Treatment NameTypePriorityAssociated DiagnosesOrder ScheduleCULTURE, GROUP B STREP WITH SUSCEPTIBLITYLabRoutine Third trimester ([facility]) Expected: 06/30/2025, Expires: 06/30/2026documented as of this encounter Procedures Procedure NamePriorityDate/TimeAssociated DiagnosisCommentsPOCT URINALYSIS TCBZNJGMDkvuffd09/14/2025 1:50 PM EDT Third trimester ([facility]) documented in this encounter Results * POCT urinalysis dipstick manually resulted (06/30/2025 1:50 PM EDT)Component ValueRef RangeTest MethodAnalysis TimePerformed AtPathologist SignatureColor, UAYellowClarity, UAClearGlucose, UANegativeNegative - 2000(110) ++++ mg/dL Bilirubin, UANegativeNegative - 4(70) +++ mg/dLKetones, UANegativeNegative - 160(16) ++++ mg/dLSpec Grav, UA1.0101 - 1.03Blood, UANegativeNegative - 50 Chriss/mcLpH, UA8.05 - 9Protein, UANegativeNegative - 2000(20) ++++ mg/dL Urobilinogen, UA1.00.2 - 12 mg/dLLeukocytes, UANegativeNegative - 500+++ Leila/mcLNitrite, UANegativeNegative - PositiveSpecimen (Source)Anatomical Location / LateralityCollection Method / VolumeCollection TimeReceived Time Urine06/30/2025 1:50 PM EDT Narrative Authorizing ProviderResult TypeResult StatusJody Lamin [facility] TEST [facility]/EDIT ORDERABLESFinal Result documented in this encounter Visit Diagnoses Diagnosis Third trimester ([facility]) state, incidental 36 weeks gestation of ([facility]) H/O pre-eclampsia in prior , currently ([facility]) H/O miscarriage, currently ([facility]) History of gestational diabetes Personal history of other genital system and obstetric disorders Anemia, unspecified type documented in this encounter
--- OUTSIDE RECORDS SUMMARY | 2025-07-02 06:45 | XMS_ITS ---
Author Organization [facility] Address [address] [place] [address] Care Team Providers Care Account Manager B2B Name Role Phone Jennie Harris Primary Care Provider [phone] KaylijacquiPrisca [phone] REASON FOR VISIT 3 month f/u Encounters Encounter Location Date Provider Diagnosis [address] [place] [address] 07/02/2025 Jennie Harris Plan Of Treatment No Information Progress Notes * NOE ERVINDOB: 4 (30 yo F)Acc No.[id number]:07/02/2025 Progress Notes Patient: NOE BOSTON :?CHRIS HenningCDOB:1995???Age:30 Y ???Sex:FemaleDate:07/02/2025Phone:[phone]:[address] [place], [place] [address] Subjective: * Chief Complaints: * 3 month f/u Billing Information: * Procedure Codes: * Electronic signature of Jennie Harris CNP on 07/08/2025 at 09:38 PM EDTSign off status: Pending * Provider: JUANI Martinez Date: 1 Generated for Printing/Faxing/eTransmitting on:?07/08/2025 09:38 PM EDT
--- OUTSIDE RECORDS SUMMARY | 2025-07-07 14:20 | XMS_ITS | Encounter Summary ---
Author Organization [facility] Address [address] [place] [address] Care Team Providers Care Matrix Bath Operator Name Role Phone Unavailable Primary Care Provider Unavailabl e Reason for Visit * ReasonCommentsRoutine Visit Encounter Details DateTypeDepartmentCare Team (Latest Contact Info)Zqbvqqwtrco74/21/2025 2:20 PM EDTRoutine [facility] [address] [place] [phone] Yousif Aparicio, [address] [place] [address] Third trimester ([facility]); 37 weeks gestation of ([facility]) Social History Tobacco UseTypesPacks/DayYears UsedDateSmoking Tobacco: NeverSmokeless Tobacco: NeverAlcohol UseStandard Drinks/WeekCommentsNever0 (1 standard drink = 0.6 oz pure alcohol)PHQ-2AnswerDate RecordedPatient Health Questionnaire-2 Score0 06/11/2025Estimated Date of VendbnrrRybfpnryZig07/05/2025Based on UltrasoundSex and Gender InformationValueDate RecordedSex Assigned at BirthNot on fileLegal HfrPtexyk80/15/2023 8:06 PM EDTGender IdentityNot on fileSexual OrientationNot on filedocumented as of this encounter Last Filed Vital Signs Vital SignReadingTime TakenCommentsBlood Qkikqthm245/6810/ 2:28 PM EDT Pulse--Temperature--Respiratory Rate--Oxygen Saturation--Inhaled Oxygen Concentration--Tkulaj39.6 kg (199 lb 12.8 oz)07/07/2025 2:28 PM EDTHeight--Body Mass Index--documented in this encounter Progress Notes * Rajani Mabel, AEROSPACE TECHNICIAN - 07/07/2025 2:20 PM EDT Reason for Appointment: Patient ID: [...] 06/30/2025 H/O pre-eclampsia in prior , currently ([facility]) 06/30/2025 Anemia 06/30/2025 Resolved Ambulatory Problems Diagnosis Date Noted No Resolved Ambulatory Problems Past Medical History: Diagnosis Date Anxiety Bipolar disorder ([facility]) Depression Fibromyalgia Gestational diabetes ([facility]) Insomnia Irritable bowel syndrome with constipation Opioid abuse ([facility]) Tobacco user HISTORY PAST MEDICAL HISTORY SOCIAL HISTORY Past Medical History: Diagnosis Date Anxiety Bipolar disorder ([facility]) Depression Fibromyalgia Gestational diabetes ([facility]) Insomnia Irritable bowel syndrome with constipation Opioid abuse ([facility]) Tobacco user Social History Tobacco Use Smoking [...] appearance. She is well-developed. Genitourinary: Vulva normal. Cardiovascular: Rate and Rhythm: Normal rate and [...] nursing note reviewed. Exam conducted with a supervising deputy present. Vitals: There is no height or weight on file to calculate BMI. BP: 128/68 Patient's last menstrual period was 10/21/2024 (exact date). Assessment/Plan ICD-10-CM 1. Third trimester ([facility]) Z34.93 2. 37 weeks gestation of ([facility]) Z3A.37 POCT urinalysis dipstick manually resulted Return OB: Patient presents today for a routine obstetrics appointment. Patient is currently 37w6d . Patient states she is doing well but has complaints of being tired due to current . Patient has verbalizes frequent movement. labor precautions was discussed/given and patient was instructed to perform kick counts three times a day. Pt to be induced on 07/15/25- inductionpaperwork signed and [facility]ed to [facility]. Orders Placed This Encounter Procedures POCT urinalysis dipstick manually resulted Follow Up: Patient is to return to office in 1 week for routine OB appointment. Documented by Rajani Monroe LPN on behalf of: Yousif Aparicio DO documented in this encounter Plan of Treatment Not on file documented as of this encounter Procedures Procedure NamePriorityDate/TimeAssociated DiagnosisCommentsPOCT URINALYSIS XDWZNYLSTmkkhbl20/21/2025 2:40 PM EDT 37 weeks gestation of ([facility]) documented in this encounter Results * (ABNORMAL) POCT urinalysis dipstick manually resulted (07/07/2025 2:40 PM EDT) ComponentValueRef RangeTest MethodAnalysis TimePerformed AtPathologist SignatureColor, UAYellowClarity, UAClearGlucose, UANegativeNegative - 2000(110) ++++ mg/dLBilirubin, UANegativeNegative - 4(70) +++ mg/dLKetones, UA PositiveNegative - 160(16) ++++ mg/dLSpec Grav, UA1.0151 - 1.03Blood, UA NegativeNegative - 50 Chriss/mcLpH, UA6.05 - 9Protein, UATraceNegative - 2000(20) ++++ mg/dLUrobilinogen, UA>=8.00.2 - 12 mg/dLLeukocytes, UANegativeNegative - 500+++ Leila/mcLNitrite, UANegativeNegative - PositiveSpecimen (Source) Anatomical Location / LateralityCollection Method / VolumeCollection Time Received QbydDpagq04/21/2025 2:40 PM EDT Narrative Authorizing ProviderResult TypeResult StatusCorey Markus DOPOINT OF CARE TEST ENTER/EDIT ORDERABLESFinal Result documented in this encounter Visit Diagnoses Diagnosis Third trimester ([facility]) state, incidental 37 weeks gestation of ([facility]) documented in this encounter
--- OUTSIDE RECORDS SUMMARY | 2025-07-08 21:35 | XMS_ITS | CCD ---
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 10-66-7953MifkkspgWnpfq female genital disorders (3 sources)Noninflammatory disorder of the vagina; Translations: [Other specified noninflammatory disorders ofvagina]Onset: 721120-93-9522Ppyrfguq Residual codes; unclassified (4 sources)Other specified postprocedural states; Translations: [OTH SPECIFIED POSTPROCEDURAL STATES]Onset: 94-23-2422PplrumveYrqtxtgw codes; unclassified (1 source)8 weeks gestation of ; Translations: [8 WEEKS GESTATION OF ]Onset: 25-15-8178ClglpvajRqidkdkgzpcw (1 source)COUGH, UNSPECIFIED; Translations: [COUGH, UNSPECIFIED]Onset: 98-48-9244QAZLXSR: Highlighted row has been ruled out!Unclassified (1 source)No known active -[id number] Results Test NameValueInterpretationReference RangeFacilityUrinalysis macro (dipstick) panel (U)on 70-71-4456Kxhdjgtui, UANegativeNegative - 4(70) +++ mg/dLNOMS HealthcareBlood, UANegativeNegative - 50 Chriss/mcLNOMS HealthcareClarity, UAClear NOMS HealthcareColor, UAYellowNOMS HealthcareGlucose, UANegativeNegative - 2000(110) ++++ mg/dLNOMS HealthcareInterpretation and review of laboratory resultsAbnormalNOMS HealthcareKetones, UAPositiveNegative - 160(16) ++++ mg/dL NOMS HealthcareLeukocytes, UANegativeNegative - 500+++ Leila/mcLNOMS Healthcare Nitrite, UANegativeNegative - PositiveNOMS HealthcarepH, UA6.05 - 9NOMS HealthcareProtein, UATraceNegative - 1999(20) ++++ mg/dLNOMS HealthcareSpec Grav, UA1.0151 - 1.03NOMS HealthcareUrobilinogen, UA>=8.00.2 - 12 mg/dLNOMS HealthcareNOMS HealthcareUS OB LIMITED 1+ FETUSESon 09-22-9588RO OB LIMITED 1+ FETUSESFINDINGS: Comparison made with prior examination of May 20, 2025. Single viable intrauterine, cephalic presentation, normal and cardiac pauskq308 bpm. Normal normal amniotic fluid volume, 13.0 cm, largest fluid pocket 5.0 cm. Gestational age of 36 weeks, 5 days with an estimated delivery date of July 22, 2025. IMPRESSION: 1. Single viable intrauterine (normal and cardiac activity) 2. DANICA 13.4 cm increased from prior examination of May 20, 2025, 9.6 cm. TRANSCRIBED BY: ELECTRONICALLY SIGNED BY: Myron Jackson AvailableComment on above:Order Comment: US OB AMNIOTIC FLUID VOLUME Estimated Date of Delivery: 07/22/25 Gestational Age as of 06/08/2025: 69m7xGpjyvgwvdk macro (dipstick) panel (U)on 72-27-7429Lqllxemxh, UANegativeNegative - 4(70) +++ mg/dLNOMS HealthcareBlood, UANegativeNegative - 50 Chriss/mcLNOMS HealthcareClarity, UAClearNOMS Healthcare Color, UAYellowNOMS HealthcareGlucose, UANegativeNegative - 1999(110) ++++ mg/dL NOMS HealthcareInterpretation and review of laboratory resultsNormalNOMS HealthcareKetones, UANegativeNegative - 160(16) ++++ mg/dLNOMS Healthcare Leukocytes, UANegativeNegative - 500+++ Leila/mcLNOMS HealthcareNitrite, UA NegativeNegative - PositiveNOMI HealthcarepH, UA8.05 - 9NOMS HealthcareProtein, UANegativeNegative - 2000(20) ++++ mg/dLNOMI HealthcareSpec Grav, UA1.0101 - 1.03NOMI HealthcareUrobilinogen, UA1.00.2 - 12 mg/dLNOMI HealthcareNOMI HealthcareALL CBC WITH AUTO DIFFon 20-82-6219EGVWNDQYS ABSOLUTE LJKG7REQY HealthcareBasophils/100 WBC (Bld)0.2 %0.2 - 2.0 %[facility] HospitalEosinophils/100 WBC (Bld)0.3 %Low0.9 - 7.0 %[facility] HospitalErythrocyte distribution width (RBC) [Ratio]24.9 %High11.0 - 15.0 %[facility] HospitalHematocrit (Bld) [Volume fraction] 32.3 %Low36.0 - 48.0 %[facility] HospitalHemoglobin (Bld) [Mass/Vol]10.5 g/dLLow12.0 - 16.0 g/dLMercy McCune-Brooks HospitalIMMATURE GRANULOCYTES ABS AUTO0.05HighMercy McCune-Brooks Hospital Immature granulocytes/100 WBC (Bld)0.6 %High0.0 - 0.5 %[facility] Interpretation and review of laboratory resultsAbnormalMercy [facility] Hospital LYMPHOCYTES ABSOLUTE AUTO1.3NOSSM [facility] Health CenterLymphocytes/100 WBC (Bld)14 %Low20.5 - 60.0 %[facility] CenterH (RBC) [Entitic mass]25.1 pgLow26.7 - 34.0 pgCapital Region Medical CenterHC (RBC) [Mass/Vol]32.5 g/dL29.9 - 35.2 g/dLCapital Region Medical CenterV (RBC) [Entitic vol]77.1 fLLow81.0 - 99.0 fLMercy McCune-Brooks HospitalMONOCYTES ABSOLUTE AUTO0.7 [facility] HospitalMonocytes/100 WBC (Bld)8.2 %1.7 - 12.0 %[facility] NEUTROPHILS ABSOLUTE AUTO6.8HighMercy McCune-Brooks HospitalNeutrophils/100 WBC (Bld)76.7 % High43.0 - 75.0 %[facility] HospitalPlatelet mean volume (Bld) [Entitic vol]10.9 fL 9.5 - 13.5 fLMercy McCune-Brooks HospitalTB EO #0NOMS HealthcareTBH COG259JEYLSSM [facility] CenterTB RBC4.19LowNOSSM [facility] CenterTB WBC8.9NOMS HealthcareCLINISYNCNOMS Healthcare Urinalysis macro (dipstick) panel (U)on 95-64-4081Qcoqphdai, UANegativeNegative - 4(70) +++ mg/dLNOMI HealthcareBlood, UANegativeNegative - 50 Chriss/mcLNOMI HealthcareClarity, UAClearNOMS HealthcareColor, UAYellowNOMS HealthcareGlucose, UANegativeNegative - 2000(110) ++++ mg/dLNOMI HealthcareInterpretation and review of laboratory resultsNormalNOMI HealthcareKetones, UANegativeNegative - 160(16) ++++ mg/dLNOMI HealthcareLeukocytes, UANegativeNegative - 500+++ Leila/mcL NOM HealthcareNitrite, UANegativeNegative - PositiveNOMI HealthcarepH, UA85 - 9 NOMS HealthcareProtein, UANegativeNegative - 2000(20) ++++ mg/dLNOMI Healthcare Spec Grav, UA1.011 - 1.03NOMI HealthcareUrobilinogen, UA1.00.2 - 12 mg/dLRanken Jordan [facility] HealthcareOVA + PARASITE EXAMon 12-57-2229LMT + PARASITE EXAM Final report.[facility] HealthcareComment on above:These results were obtained using wet preparation(s) and trichrome stained smear. This test does not include testing for Cryptosporidium parvum, Cyclospora, or Microsporidia. RESULT 1Comment.[facility] HealthcareComment on above:No ova, cysts, or parasites seen. One negative specimen does not rule out the possibility of a parasitic infection. Performed at: - Lab[address] [id number] Proofer: Justice Flor PhD, Phone: [phone] STOOL CLINISYNCSPANISH FORK [facility]ITAL HealthcareUS OB FOLLOW UP TRANSABDOMINAL APPROACHon 41-95-6590IE OB FOLLOW UP TRANSABDOMINAL APPROACHFINDINGS: Comparison made with prior examination of April 01, 2025.. A single, live intrauterine is present with normal cardiac rate of 168 beats per minute. Normal activity and amniotic fluid volume. Amniotic fluid index is 9.6 cm. Morphology isgrossly normal. The current sonographic age is 31 [...] menstrual period. TRANSCRIBED BY: ELECTRONICALLY SIGNED BY: Argentina JacksonNot AvailableComment on above:Order Comment: US OB SCAN FOR GROWTH Estimated Date of Delivery: 07/22/25 Gestational Age as of 05/06/2025: 12g8pSgozsgualy macro (dipstick) panel (U)on 25-89-7353Nuwyfmnzf, UANegativeNegative - 4(70) +++ mg/dLNOMS HealthcareBlood, UANegativeNegative - 50 Chriss/mcLNOMS HealthcareClarity, UAClearNOMS Healthcare Color, UAYellowNOMS HealthcareGlucose, UANegativeNegative - 1999(110) ++++ mg/dL NOMS HealthcareInterpretation and review of laboratory resultsNormalNOMS HealthcareKetones, UANegativeNegative - 160(16) ++++ mg/dLNOMS Healthcare Leukocytes, UANegativeNegative - 500+++ Leila/mcLNOMS HealthcareNitrite, UA NegativeNegative - PositiveNOMS HealthcarepH, UA85 - 9NOMS HealthcareProtein, UA NegativeNegative - 2000(20) ++++ mg/dLNOMS HealthcareSpec Grav, UA1.0051 - 1.03 NOMS HealthcareUrobilinogen, UA1.00.2 - 12 mg/dLNOMS [facility] For RehabilitationNOMI Healthcare GLUCOSE 1 HOURon 32-65-0959Szlgbbg [Mass/Vol]121 mg/dLNINF - 130 mg/dLNOMS HealthcareCLINISYNCNOMS HealthcareUrinalysis macro (dipstick) panel (U)on 39-82-4665Mtywvkfjm, UANegativeNegative - 4(70) +++ mg/dLNOMS HealthcareBlood, UAPositiveNegative - 50 Chriss/mcLNOMS HealthcareComment on above:LargeClarity, UA ClearNOMS HealthcareColor, UAYellowNOMS HealthcareGlucose, UANegativeNegative - 1999(110) ++++ mg/dLNOMS HealthcareInterpretation and review of laboratory resultsAbnormalNOMS HealthcareKetones, UANegativeNegative - 160(16) ++++ mg/dL NOMS HealthcareLeukocytes, UANegativeNegative - 500+++ Leila/mcLNOMS Healthcare Nitrite, UANegativeNegative - PositiveNOMS HealthcarepH, UA75 - 9N[facility] Healthcare Protein, UANegativeNegative - 1999(20) ++++ mg/dLNOMS HealthcareSpec Grav, UA 1.011 - 1.03NOMS HealthcareUrobilinogen, UA0.20.2 - 12 mg/dLNOMS HealthcareNOMI HealthcareUrinalysis macro (dipstick) panel (U)on 68-14-4084Ehaurcnkw, UA NegativeNegative - 4(70) +++ mg/dLNOMS HealthcareBlood, UANegativeNegative - 50 Chriss/mcLNOMS HealthcareClarity, UAClearNOMS HealthcareColor, UAYellowNOMS HealthcareGlucose, UANegativeNegative - 1999(110) ++++ mg/dLNOMS Healthcare Interpretation and review of laboratory resultsAbnormalNOMS HealthcareKetones, UANegativeNegative - 160(16) ++++ mg/dLNOMS HealthcareLeukocytes, UANegative Negative - 500+++ Leila/mcLNOMS HealthcareNitrite, UANegativeNegative - Positive NOMS HealthcarepH, UA85 - 9NOMS HealthcareProtein, UATraceNegative - 1999(20) ++++ mg/dLNOMS HealthcareSpec Grav, UA1.011 - 1.03NOMS HealthcareUrobilinogen, UA0.20.2 - 12 mg/dLNOMS [facility] For RehabilitationNOMI HealthcareIGP,APTIMA HPV,AGE GDLNon 08-11-2660HQG LN ACOG TESTINGNote.NOMS HealthcareComment on above:TESTS RESULT FLAG UNITS REF RANGE LAB Clinician Provided Cytology Information Source.............[employer] Other.............. No. of containers..01 ThinPrep Vial Age Algo ACOG Keira... FLAG LEGEND: L-Low Normal,H-High Normal,LL-Alert Low,HH-Alert High <-Panic Low,>-Panic High,A-Abnormal,AA-Critical Abnormal Performed at: 01 =[address] [place] [address] Jesi Kuhn MD, HPV APTIMANegativeNegativeSPANISH FORK [facility]ITAL HealthcareComment on above:This nucleic acid amplification test detects fourteen high- risk HPV types (16,18,31,33,35,39,45,51,52,56,58,59,66,68) without differentiation. Performed at: =[address] [id number] Proofer: Jesi Kuhn MD, Phone: [phone] Performed at: [address], [place] [id number] Proofer: Jesi Kuhn MD, Phone: [phone] IGP, APTIMA HPV, RFX 16/18,45Note.NOMS HealthcareComment on above:TESTS RESULT FLAG UNITS REF RANGE LAB DIAGNOSIS: 02 NEGATIVE FOR INTRAEPITHELIAL LESION OR MALIGNANCY. Specimen adequacy: 02 Satisfactory for evaluation. No endocervical component is identified. Performed by: Janie Almazan Syrup Machine Laborer . 02 Note: Note 02 The Pap [...] <-Panic Low,>-Panic High,A-Abnormal,AA-Critical Abnormal Performed at: [address] [facility] [address] [place] [address] Jesi Kuhn MD, SPATULA-ALONE ENDOCERVIX CLINISYNCNOMS HealthcareRECURRENT VAGINITIS (HTRX)on 20-96-8332DHDPZPKSV VAGINAE 0NOMS HealthcareATOPOBIUM VAGINAENot detectedNOMS HealthcareBVAB 2,3 (BACTERIAL VAGINOSIS ASSOCIATED BACTERIA 2, 3); MOBILUNCUS ZVH9LSUB HealthcareBVAB 2,3 (BACTERIAL VAGINOSIS ASSOCIATED BACTERIA 2, 3); MOBILUNCUS SPPNot detectedNOMS HealthcareCANDIDA ALBICANS, PARAPSILOSIS, DKCAXGFHFS3KDSD HealthcareCANDIDA ALBICANS, PARAPSILOSIS, TROPICALISNot detectedNOMS HealthcareCANDIDA GLABRATA0 NOMS HealthcareCANDIDA GLABRATANot detectedNOMS HealthcareCANDIDA HBTNRA5ABIC HealthcareCANDIDA KRUSEINot detectedNOMS HealthcareCHLAMYDIA VYHGPVWJGPZ2MUCS HealthcareCHLAMYDIA TRACHOMATISNot detectedNOMS HealthcareGARDNERELLA VAGINALIS0 NOMS HealthcareGARDNERELLA VAGINALISNot detectedNOMS HealthcareMEGASPHAERA (TYPES 1, 2)0NOMS HealthcareMEGASPHAERA (TYPES 1, 2)Not detectedNOMS Healthcare MYCOPLASMA PZWMTSDACA4CRTG HealthcareMYCOPLASMA GENITALIUMNot detectedNOMS HealthcareNEISSERIA BHSAZRLODII5JTRZ HealthcareNEISSERIA GONORRHOEAENot detected NOMS HealthcareTRICHOMONAS VJLFJAHGQ2SUVL HealthcareTRICHOMONAS VAGINALISNot detectedNOMS HealthcareNOMS HealthcareUS OB 14+ WEEKS ANATOMY SCANon 03-11-2025 OB 14+ WEEKS ANATOMY SCANFINDINGS: A single, live intrauterine is present with [...] menstrual period. TRANSCRIBED BY: ELECTRONICALLY SIGNED BY: Myron Jackson AvailableComment on above:Order Comment: US OB ANATOMY SINGLE W US OB CERVICAL LENGTH Estimated Date of Delivery: 07/22/25 Gestational Age as of 03/11/2025: 32t8wPuiajsfkem macro (dipstick) panel (U)on 37-20-0928Tkzijdrnm, UANegativeNegative - 4(70) +++ mg/dLNOMS HealthcareBlood, UANegativeNegative - 50 Chriss/mcLNOMS HealthcareClarity, UAClearNOMS Healthcare Color, UAYellowNOMS HealthcareGlucose, UANegativeNegative - 2000(110) ++++ mg/dL NOMS HealthcareInterpretation and review of laboratory resultsNormalNOMS HealthcareKetones, UANegativeNegative - 160(16) ++++ mg/dLNOMS Healthcare Leukocytes, UANegativeNegative - 500+++ Leila/mcLNOMS HealthcareNitrite, UA NegativeNegative - PositiveNOMS HealthcarepH, UA8.55 - 9NOMS HealthcareProtein, UANegativeNegative - 2000(20) ++++ mg/dLNOMS HealthcareSpec Grav, UA1.021 - 1.03 NOMS HealthcareUrobilinogen, UA0.20.2 - 12 mg/dLNOMS HealthcareNOMS Healthcare Urinalysis macro (dipstick) panel (U)on 44-82-3418Lcjhbbllv, UANegativeNegative - 4(70) +++ mg/dLNOMS HealthcareBlood, UAPositiveNegative - 50 Chriss/mcLNOMS HealthcareComment on above:largeClarity, UACloudyNOMS HealthcareColor, UAYellow NOMS HealthcareGlucose, UANegativeNegative - 2000(110) ++++ mg/dLNOMS Healthcare Interpretation and review of laboratory resultsAbnormalNOMS HealthcareKetones, UANegativeNegative - 160(16) ++++ mg/dLNOMS HealthcareLeukocytes, UATrace Negative - 500+++ Leila/mcLNOMS HealthcareNitrite, UANegativeNegative - Positive NOMS HealthcarepH, UA7.55 - 9NOMS HealthcareProtein, UATraceNegative - 2000(20) ++++ mg/dLNOMS HealthcareSpec Grav, UA1.021 - 1.03NOMS HealthcareUrobilinogen, UA1.00.2 - 12 mg/dLNOMS HealthcareNOMS HealthcareBOX TESTon 89-61-3485GZC TEST SENT OUTUNITYNOMI WotuvemeqvVKG9XFKAOKXHW JnonzehpjmWMS229/23/2025NOMI HealthcareUNITY BOX CLINISYNCNOMI HealthcareHCG ( test) Ql (U)on 44-92-7384Hpgm Test, Ur PositiveNegativeNOMI HealthcareNo Panel Informationon 57-04-4147Ellbbpwhbzssec and review of laboratory resultsAbnormalNOSalem Memorial District HospitalMS HealthcareUS OB TRANSVAGINALon 05-08-0094ZQ OB TRANSVAGINALEXAM: US OB TRANSVAGINAL HISTORY: Dating. A1. LMP 10/21/2024. COMPARISON: None [...] to a gestational age of 11 weeks 1days (+/- 7 days). There is no subchorionic hemorrhage visualized. A yolk sac is visualized. IMPRESSION: 1. Single, live intrauterine gestation 10 weeks, 2 days by LMP. Today's ultrasound measurements correlate with a gestational age of 11 weeks 1 days (+/- 7 days). ANGELA by today's ultrasound is 2024. 2. Right ovarian corpus luteal cyst. 3. Normal color Doppler evaluation of the bilateral ovaries. Interpreted by: Electronically signed by LISSET HUERTA II, MD, PHD at 08-Jan-2025 02:06:49 PM [facility]-[place] TeleradiologyNormalNot AvailableComment on above:Order Comment: US OB TRANSVAGINAL No LMP recorded.Urinalysis macro (dipstick) panel (U)on 60-83-2670Lwmbvviuy, UA NegativeNegative - 4(70) +++ mg/dLNOMS HealthcareBlood, UANegativeNegative - 50 Chriss/mcLNOMS HealthcareClarity, UAClearNOMS HealthcareColor, UAYellowNOMS HealthcareGlucose, UANegativeNegative - 2000(110) ++++ mg/dLNOMS Healthcare Ketones, UANegativeNegative - 160(16) ++++ mg/dLNOMS HealthcareLeukocytes, UA TraceNegative - 500+++ Leila/mcLNOMS HealthcareNitrite, UANegativeNegative - PositiveNOMS HealthcarepH, UA75 - 9NOMS HealthcareProtein, UANegativeNegative - 2000(20) ++++ mg/dLNOMS HealthcareSpec Grav, UA1.021 - 1.03NOMS Healthcare Urobilinogen, UA0.20.2 - 12 mg/dLNOMS HealthcareAlanine aminotransferase [Enzymatic activity/volume] in Serum or PlasmaOrdered By: Dane Erwin on 37-87-4279DVY [Catalytic activity/Vol]Alanine aminotransferase [Enzymatic activity/volume] in Serum or PlasmaHigh752[facility] Albumin [Mass/volume] in Serum or Plasma by Bromocresol green (BCG) dye binding methoOrdered By: Dane Erwin on 83-93-8654Jpvwvtz BCG dye [Mass/Vol] Albumin [Mass/volume] in Serum or Plasma by Bromocresol green (BCG) dye binding metho3.5-5.7FProMedica Fostoria Community HospitalAlkaline phosphatase [Enzymatic activity/volume] in Serum or PlasmaOrdered By: Dane Erwin on 72-16-8547USA [Catalytic activity/Vol]Alkaline phosphatase [Enzymatic activity/volume] in Serum or KhtctmZxkp01-744WtiuixgitDayton Va Medical Center Aspartate aminotransferase [Enzymatic activity/volume] in Serum or PlasmaOrdered By: Dane Erwin on 51-49-0185JGC [Catalytic activity/Vol]Aspartate aminotransferase [Enzymatic activity/volume] in Serum or Wafpwu11-00IyrpkeajkDayton Va Medical CenterBilirubin.total [Mass/volume] in Serum or PlasmaOrdered By: Dane Erwin on 67-27-5750Dqnswevig [Mass/Vol]Bilirubin.total [Mass/volume] in Serum or Plasma0.3-1.0[facility] CenterCalcium [Mass/volume] in Serum or PlasmaOrdered By: Dane Erwin on 10-19-2024 Calcium [Mass/Vol]Calcium [Mass/volume] in Serum or Plasma8.6-10.3FProMedica Fostoria Community HospitalCarbon dioxide, total [Moles/volume] in Serum or Plasma Ordered By: Dane Erwin on 65-71-7128HY1 [Moles/Vol]Carbon dioxide, total [Moles/volume] in Serum or BbevthZhkl31.0-31.0[facility] CenterChloride [Moles/volume] in Serum or PlasmaOrdered By: Dane Erwin on 43-81-9234Ylysndgn [Moles/Vol]Chloride [Moles/volume] in Serum or Jmialu10-162NqwguqphwDayton Va Medical CenterComprehensive Metabolic Panelon 60-70-4364Pgetoao [Mass/Vol]4.0 g/dLNormal3.5-5.7[facility] Comment on above:Performed By: #### CMP #### [facility] [address] [place] [address] USAAlbumin/Globulin [Mass ratio]1.7 {ratio}NormalThe [facility] Physician GroupComment on above:Performed By: #### CMP #### [facility] [address] [place] [address] USAALP [Catalytic activity/Vol]117 U/YQasq55-110Jzw [facility] Physician GroupComment on above:Performed By: #### CMP #### [facility] [address] [place] [address] USAALT [Catalytic activity/Vol]131 U/LHigh7-52The [facility] Physician GroupComment on above:Performed By: #### CMP #### [facility] [address] [place] [address] USAAnion gap [Moles/Vol]9.1 mmol/LNormal6.0-15.0The [facility] Physician GroupComment on above:Performed By: #### CMP #### [place] [address] USAAST [Catalytic activity/Vol]34 U/ZOszgys42-78Ytr [facility] Physician GroupComment on above:Performed By: #### CMP #### [place] [address] USABilirubin [Mass/Vol]0.5 mg/dLNormal0.3-1.0The [facility] Physician GroupComment on above:Performed By: #### CMP #### [place] [address] USACalcium [Mass/Vol]9.8 mg/dLNormal8.6-10.3The [facility] Physician GroupComment on above:Performed By: #### CMP #### [place] [address] USAChloride [Moles/Vol]101 mmol/JCdjpsa54-135Jko [facility] Physician GroupComment on above:Performed By: #### CMP #### [place] [address] USACO2 [Moles/Vol]33.1 mmol/LHigh21.0-31.0The [facility] Physician GroupComment on above:Performed By: #### CMP #### [place] [address] USACreatinine [Mass/Vol]0.74 mg/dLNormal0.60-1.20The [facility] Physician GroupComment on above:Performed By: #### CMP #### [place] [address] USACreatinine Clr Calc Ulnoqlra46.70NormalThe [facility] Physician GroupComment on above:Result Comment: PERFORMED BY: [place] [address] PATHOLOGIST REFRIGERATOR REPAIR TECHNICIAN MARQUITA BOLAÑOS M.D.Performed By: #### CMP #### [facility] [address] [place] [address] USAGFR/1.73 sq M.predicted MDRD (S/P/Bld) [Vol rate/Area] mL/min/{1.73_m2}NormalThe [facility] Physician GroupComment on above:Performed By: #### CMP #### [facility] [address] [place] [address] USAGlobulin (S) [Mass/Vol]2.4 g/dLNormalThe [facility] Physician GroupComment on above:Performed By: #### CMP #### [place] [address] USAGlucose [Mass/Vol]67 mg/oWHyp05-457Phh [facility] Physician GroupComment on above:Result Comment: Random Glucose Reference Range is dependent on time and content of last meal. Glucose of more than 200 mg/dL in a nonstressed, ambulatory subject supports the diagnosis of Diabetes Mellitus. ADA recommended reference rangePerformed By: #### CMP #### [place] [address] USAPotassium [Moles/Vol]4.2 mmol/LNormal3.5-5.1The [facility] Physician GroupComment on above:Performed By: #### CMP #### [place] [address] USAProtein [Mass/Vol]6.4 g/dLNormal6.4-8.9The [facility] Physician GroupComment on above:Performed By: #### CMP #### [place] [address] USASodium [Moles/Vol]139 mmol/HZrjnjg081-801Ran [facility] Physician GroupComment on above:Performed By: #### CMP #### [place] [address] USAUrea nitrogen [Mass/Vol]17 mg/dLNormal7-25The [facility] Physician GroupComment on above:Performed By: #### CMP #### [place] [address] USACreatinine [Mass/volume] in Serum or PlasmaOrdered By: Dane Erwin on 22-44-9216Jemcihpcil [Mass/Vol]Creatinine [Mass/volume] in Serum or Plasma0.60-1.20[facility] Medical CenterGlobulin Calc (S) [Mass/Vol]Ordered By: Dane Erwin on 61-92-3277Vptfrway (S) [Mass/Vol] Serum globulin measurement by calculation (mass/volume)[facility] CenterGlucose [Mass/volume] in Serum or PlasmaOrdered By: Dane Erwin on 56-94-0764Qwdmwzq [Mass/Vol]Glucose [Mass/volume] in Serum or ZpafgfJnp08-064JmjcmhudxDayton Va Medical CenterComment on above:ADA recommended reference rangeRandom Glucose Reference Range is dependent on time and content of last meal. Glucose of more than 200 mg/dL in a nonstressed, ambulatory subject supports the diagnosisof Diabetes Mellitus.No Panel InformationOrdered By: Dane Erwin on 33-36-8103Epciquuph GFR (CKD-EPI)> 60.0 mL/Min [facility] CenterPharmacy Creatinine Clearance (Chem98.70 [facility] CenterPotassium [Moles/volume] in Serum or Plasma Ordered By: Dane Erwin on 11-62-7382Ufyfmgbnj [Moles/Vol]Potassium [Moles/volume] in Serum or Plasma3.5-5.1FProMedica Fostoria Community HospitalProtein [Mass/volume] in Serum or PlasmaOrdered By: Dane Erwin on 10-19-2024 Protein [Mass/Vol]Protein [Mass/volume] in Serum or Plasma6.4-8.9[facility] Centererum or plasma albumin/globulin mass ratioOrdered By: Dane Erwin on 53-01-1473Woehtwx/Globulin [Mass ratio]Serum or plasma albumin/globulin mass ratioFulton County Health Centererum or plasma anion gap determinationOrdered By: Dane Erwin on 83-42-5313Hyivi gap [Moles/Vol]Serum or plasma anion gap determination6.0-15.0[facility] Centerodium [Moles/volume] in Serum or PlasmaOrdered By: Dane Erwin on 19-65-1913Fjpjmv [Moles/Vol]Sodium [Moles/volume] in Serum or Csxsfk435-258LnsxykxqwDayton Va Medical CenterUrea nitrogen [Mass/volume] in Serum or PlasmaOrdered By: Dane Erwin on 71-55-2771Odxx nitrogen [Mass/Vol]Urea nitrogen [Mass/volume] in Serum or Plasma7-25[facility] CenterCholesterol [Mass/volume] in Serum or PlasmaOrdered By: Dane Erwin on 22-09-4607Esreefsrbuj [Mass/Vol]Cholesterol [Mass/volume] in Serum or LabgmrXwg610-321TvnzyqggmDayton Va Medical Center Comment on above:Chol less than 200 mg/dl low riskChol 201-239 mg/dl borderline riskChol 240 mg/dl and greater high riskCholesterol in HDL [Mass/volume] in Serum or PlasmaOrdered By: Dane Erwin on 09-26-1349Tghqvvolstt in HDL [Mass/Vol]Serum or plasma high density lipoprotein (HDL) cholesterol jqshrictxfd46-98JeopdweyzDayton Va Medical CenterComment on above:HDL CHOL ATP- III CLASSIFICATION Cardiovascular RiskHDL > or equal to 60 mg/dL LOWHDL < 40 mg/dL HIGHCholesterol in LDL Calc [Mass/Vol]Ordered By: Dane Erwin on 33-05-2477Vnhbrmbqjob in LDL [Mass/Vol]Cholesterol in LDL [Mass/volume] in Serum or Plasma by calculation0-100[facility] CenterComment on above:LDL ATP III CLASSIFICATIONLDL less than 100 mg/dL OptimalLDL 100-129 mg/dL Near or above zbiwivhYPM943-020 mg/dL Borderline highLDL 160-189 mg/dL HighLDL greater than 189 mg/dL Very highCholesterol in VLDL Calc [Mass/Vol]Ordered By: Dane Erwin on 47-82-2134Mllaviqxgre in VLDL [Mass/Vol]Cholesterol in VLDL [Mass/volume] in Serum or Plasma by calculationDayton Va Medical CenterLipid Panelon 59-73-3185Ullvxkuzpon [Mass/Vol]115 mg/hJRsi537-021Tta [facility] Physician GroupComment on above:Result Comment: Chol less than 200 mg/dl low risk Chol 201-239 mg/dl borderline risk Chol 240 mg/dl and greater high riskPerformed By: #### URDS #### [facility] [address] [place] [address] USACholesterol in HDL [Mass/Vol]36 mg/rWMoelrt79-98Ism [facility] Physician GroupComment on above:Result Comment: HDL CHOL ATP-III CLASSIFICATION Cardiovascular Risk HDL > or equal to 60 mg/dL LOW HDL < 40 mg/dL HIGHPerformed By: #### URDS #### [facility] [address] [place] [address] USACholesterol.total/Cholesterol in HDL [Mass ratio]3.2 {ratio}Normal<5.0The [facility] Physician GroupComment on above:Performed By: #### URDS #### [facility] [address] [place] [id number] USALDL Cholesterol,Bddqnixgsi09 mg/dLNormal0-100The [facility] Physician GroupComment on above:Result Comment: LDL ATP III CLASSIFICATION LDL less than 100 mg/dL Optimal LDL 100-129 mg/dL Near or above optimal LDL 130-159 mg/dL Borderline high LDL 160-189 mg/dL High LDL greater than 189 mg/dL Very highPerformed By: #### URDS #### [facility] [address] [place] [id number] USATriglyceride w/Fuxzac830 mg/dLNormal0-149The [facility] Physician GroupComment on above:Result Comment: TRIG ATP III CLASSIFICATION TRIG less than 150 mg/dL Normal TRIG 150-199 mg/dL Borderline high TRIG 200-500 mg/dL High TRIG greater than 500 mg/dL Very high Standard traceable to the Center for Disease Conrtrol and Prevention (CDC) test method.Performed By: #### URDS #### [facility] [address] [place] [address] USAVLDL SRGPQLTDWSX57 mg/dLNormalThe [facility] Physician GroupComment on above:Performed By: #### URDS #### [facility] [address] [place] [address] USASerum or plasma total cholesterol/high density lipoprotein (HDL) cholesterol mass ratOrdered By: Dane Erwin on 10-18-2024 Cholesterol.total/Cholesterol in HDL [Mass ratio]Serum or plasma total cholesterol/high density lipoprotein (HDL) cholesterol mass rat<5.0[facility] Medical CenterThyroid Stim Hormone w/Rflxon 58-07-4098Kyvgiht Stim Hormone w/Rflx2.83 u[iU]/mLNormal0.45-5.33The [facility] Physician GroupComment on above:Performed By: #### URDS #### [facility] [address] [place] [address] USAThyrotropin [Units/volume] in Serum or PlasmaOrdered By: Dane Erwin on 15-83-7722YII QnThyrotropin [Units/volume] in Serum or Plasma0.45-5.33[facility] Va Medical CenterTriglyceride [Mass/volume] in Serum or PlasmaOrdered By: Dane Erwin on 06-22-4477Jxouejgzhcvl [Mass/Vol]Triglyceride [Mass/volume] in Serum or Plasma0-149[facility] Medical CenterComment on above:TRIG ATP III CLASSIFICATIONTRIG less than 150 mg/dL NormalTRIG 150-199 mg/dL Borderline highTRIG 200-500 mg/dL High TRIG greater than 500 mg/dL Very highStandard traceable to the Center for Disease Co nrtrol and Prevention (CDC) test method.Vitamin D 25 Hydroxy Totalon 10-18-2024 Vitamin D 25 Hydroxy Total10.8 ng/iKHla39-107Ldx [facility]ician Group Comment on above:Result Comment: VITAMIN D STATUS 25(OH)VITAMIN D RANGE (ng/mL) Deficient <20 Insufficient 20 to <30 Sufficient 30 to 100 Reference: Clinton MF,Sari HEBERT, Mayito SNYDER, et al. Evaluation,treatment, and prevention of vitamin D deficiency; an Endocrine Society clinical practice guideline. JCEM. 2010; 96(7):1911-30. PERFORMED BY: [facility] [address] [facility] [place] [address] PATHOLOGIST REFRIGERATOR REPAIR TECHNICIAN MARQUITA BOLAÑOS M.D.Performed By: #### URDS #### [facility] [address] [place] [address] USAVitamin D+Metabolites [Mass/volume] in Serum or Plasma Ordered By: Dane Erwin on 26-38-4093Lyygxkm D+Metabolites [Mass/Vol] Vitamin D+Metabolites [Mass/volume] in Serum or AynbymAnw40-110XrpmuzstqDayton Va Medical CenterComment on above:VITAMIN D STATUS 25(OH)VITAMIN D RANGE (ng/mL) Deficient <20 Insufficient 20 to <17Rdkqvsahpr35 to 100Reference: Clinton MF,Sari HEBERT, Mayito SNYDER, et al. Evaluation,treatment, and prevention of vitamin D deficiency; an Endocrine Society clinical practice guideline. JCEM. 2010; 96(7):1911-30.LIZBETH Antinuclear Antibodieson 78-37-1804Tpedqxwkhuf Abs, IFAPositiveCritically abnormal.The [facility] Physician GroupComment on above:Result Comment: Negative <1:80 Borderline 1:80 Positive >1:80Performed By: #### URDS #### [facility] [address] [place] [address] USANote 1CommentNormal.The [facility] Physician GroupComment on above:Result Comment: Pattern Potential Disease Association Homogeneous Systemic Lupus Erythematosus, Drug Induced Systemic Lupus Erythematosus, Chronic Autoimmune hepatitis, Juvenile Idiopathic Arthritis Speckled Sjogren Syndrome, Systemic Lupus Erythematosus, Subacute Cutaneous Lupus, Lupus, Congenital Heart Block, Mixed Connective Tissue Disease, Scleroderma-diffuse, Scleroderma-Autoimmune Myositis Overlap Syndrome, Systemic Lupus Kvjskvzpnxmtw-Kfqoxkiplbj-Lwifacpmwc Myositis Overlap Syndrome, Systemic Autoimmune Rheumatic Disease, [...] Cytopenias, Linear Scleroderma, Antiphospholipid Syndrome Performed at: - [facility] [id number] Proofer: Justice Flor PhD, Phone: [phone] PERFORMED BY: [place] [id number] PATHOLOGIST REFRIGERATOR REPAIR TECHNICIAN MARQUITA BOLAÑOS M.D.Performed By: #### URDS #### [place] [id number] USASpeckled Dsybmfj2Tmpo.The [facility] Physician GroupComment on above:Result Comment: Dense Fine Speckled pattern is noted. This pattern suggests the presence of DFS70 antibody which has a low prevalence in systemic autoimmune rheumatic diseases. ICAP nomenclature: AC-2,4,5,29Performed By: #### URDS #### [facility] [address] [place] [address] USAAlanine aminotransferase [Enzymatic activity/volume] in Serum or PlasmaOrdered By: Leola Smith on 95-31-9938GTL [Catalytic activity/Vol]Alanine aminotransferase [Enzymatic activity/volume] in Serum or PlasmaHigh7-52[facility] Medical CenterAlbumin [Mass/volume] in Serum or Plasma by Bromocresol green (BCG) dye binding methoOrdered By: Leola Smith on 01-56-0885Pkbdpfo BCG dye [Mass/Vol]Albumin [Mass/volume] in Serum or Plasma by Bromocresol green (BCG) dye binding methoLow3.5-5.7FProMedica Fostoria Community HospitalAlkaline phosphatase [Enzymatic activity/volume] in Serum or PlasmaOrdered By: Leola Smith on 67-73-8196TQT [Catalytic activity/Vol]Alkaline phosphatase [Enzymatic activity/volume] in Serum or VtrxmcTton36-149RpgmilmcmDayton Va Medical CenterAspartate aminotransferase [Enzymatic activity/volume] in Serum or PlasmaOrdered By: Leola Smith on 92-57-3231MQB [Catalytic activity/Vol] Aspartate aminotransferase [Enzymatic activity/volume] in Serum or Twbvee90-16 [facility] CenterBasophils Auto (Bld) [#/Vol]Ordered By: Leola Smith on 00-05-2114Maieaxfcl (Bld) [#/Vol]Automated basophil count0.0-0.2 [facility] CenterBasophils/100 WBC Auto (Bld)Ordered By: Leola Smith on 45-84-0363Nobupipat/100 WBC (Bld)Automated basophil %.[facility] Medical CenterBilirubin.total [Mass/volume] in Serum or PlasmaOrdered By: Leola Smith on 41-50-0986Wcfvusnjc [Mass/Vol]Bilirubin.total [Mass/volume] in Serum or Plasma0.3-1.0[facility] CenterCalcium [Mass/volume] in Serum or PlasmaOrdered By: Leola Smith on 30-56-1643Nacmnrn [Mass/Vol] Calcium [Mass/volume] in Serum or PlasmaLow8.6-10.3FProMedica Fostoria Community HospitalCarbon dioxide, total [Moles/volume] in Serum or PlasmaOrdered By: Leola Smith on 72-34-9192BM1 [Moles/Vol]Carbon dioxide, total [Moles/volume] in Serum or Pvdyyx52.0-31.0[facility] Medical CenterChloride [Moles/volume] in Serum or PlasmaOrdered By: Leola Smith on 13-54-3509Xeahfkkw [Moles/Vol] Chloride [Moles/volume] in Serum or VywpiuKfyb40-196ZgtmojfvnDayton Va Medical CenterComplete Blood Count Auto Diffon 94-08-9432Pznuixkne (Bld) [#/Vol]0.0 10*3/uLNormal0.0-0.2The [facility] Physician GroupComment on above:Result Comment: PERFORMED BY: [place] [address] PATHOLOGIST REFRIGERATOR REPAIR TECHNICIAN MARQUITA BOLAÑOS M.D.Performed By: #### CMP, CBC #### [facility] [address] [place] [address] USABasophils/100 WBC (Bld)0.5 %Normal.The [facility] Physician GroupComment on above:Performed By: #### CMP, CBC #### [facility] [address] [place] [address] USAEosinophils (Bld) [#/Vol]0.1 10*3/uLNormal0.0-0.45The [facility] Physician GroupComment on above:Performed By: #### CMP, CBC #### [facility] [address] [place] [address] USAEosinophils/100 WBC (Bld)1.2 %Normal.The [facility] Physician GroupComment on above:Performed By: #### CMP, CBC #### [place] [address] USAErythrocyte distribution width (RBC) [Ratio]17.3 %High 11.9-15.3The [facility] Physician GroupComment on above:Performed By: #### CMP, CBC #### [place] [address] USAHematocrit (Bld) [Volume fraction]31.1 %Low34.0-46.4The [facility] Physician GroupComment on above:Performed By: #### CMP, CBC #### [place] [address] USAHemoglobin (Bld) [Mass/Vol]10.4 g/dLLow11.8-15.4The [facility] Physician GroupComment on above:Performed By: #### CMP, CBC #### [place] [address] USALymphocytes (Bld) [#/Vol]2.1 10*3/uLNormal1.00-4.8The [facility] Physician GroupComment on above:Performed By: #### CMP, CBC #### [place] [address] USALymphocytes/100 WBC (Bld)49.2 %Normal.The [facility] Physician GroupComment on above:Performed By: #### CMP, CBC #### [place] [address] USAMCH (RBC) [Entitic mass]26.7 xaOdgcsb92.7-34.3The [facility] Physician GroupComment on above:Performed By: #### CMP, CBC #### [place] [address] USAMCV (RBC) [Entitic vol]79.9 wDFxc36-688Izp [facility] Physician GroupComment on above:Performed By: #### CMP, CBC #### [place] [address] USAMean Corpuscular HGB Conc33.4 g/hCRiqvlz53.0-35.0The [facility] Physician GroupComment on above:Performed By: #### CMP, CBC #### [facility] [address] [place] [address] USAMonocytes (Bld) [#/Vol]0.3 10*3/uLNormal0.0-0.8The [facility] Physician GroupComment on above:Performed By: #### CMP, CBC #### [facility] [address] [place] [address] USAMonocytes/100 WBC (Bld)7.7 %Normal.The [facility] Physician GroupComment on above:Performed By: #### CMP, CBC #### [facility] [address] [place] [address] USANeutrophils (Bld) [#/Vol]1.8 10*3/uLNormal1.8-7.7The [facility] Physician GroupComment on above:Performed By: #### CMP, CBC #### [place] [address] USANeutrophils/100 WBC (Bld)41.4 %Normal.The [facility] Physician GroupComment on above:Performed By: #### CMP, CBC #### [place] [address] USANRBC%0.1 /100{WBC}Normal0-0.5The [facility]ician Group Comment on above:Performed By: #### CMP, CBC #### [place] [address] USAPlatelet mean volume (Bld) [Entitic vol]9.2 fLNormal 6.3-10.7The [facility] Physician GroupComment on above:Performed By: #### CMP, CBC #### [facility] [address] [place] [address] USAPlatelets (Bld) [#/Vol]190 10*3/wAObujuk138-550Lfp [facility] Physician GroupComment on above:Performed By: #### CMP, CBC #### [facility] [address] [place] [address] USARBC (Bld) [#/Vol]3.89 10*6/uLNormal3.60-5.00The [facility] Physician GroupComment on above:Performed By: #### CMP, CBC #### [place] [address] USAWBC (Bld) [#/Vol]4.3 10*3/uLNormal3.8-11.6The [facility] Physician GroupComment on above:Performed By: #### CMP, CBC #### [place] [address] USAComprehensive Metabolic Panelon 34-51-8290Ycckzyg [Mass/Vol]3.3 g/dLLow3.5-5.7The [facility] Physician GroupComment on above: Performed By: #### CMP, CBC #### [place] [address] USAAlbumin/Globulin [Mass ratio]1.7 {ratio}NormalThe [facility] Physician GroupComment on above:Performed By: #### CMP, CBC #### [place] [address] USAALP [Catalytic activity/Vol]125 U/BYzsc83-181Ich [facility] Physician GroupComment on above:Performed By: #### CMP, CBC #### [place] [address] USAALT [Catalytic activity/Vol]191 U/LHigh7-52The [facility] Physician GroupComment on above:Performed By: #### CMP, CBC #### [place] [address] USAAnion gap [Moles/Vol]6.7 mmol/LNormal6.0-15.0The [facility] Physician GroupComment on above:Performed By: #### CMP, CBC #### [place] [address] USAAST [Catalytic activity/Vol]29 U/MFilhwy01-21Pgr [facility] Physician GroupComment on above:Performed By: #### CMP, CBC #### [place] [address] USABilirubin [Mass/Vol]0.5 mg/dLNormal0.3-1.0The [facility] Physician GroupComment on above:Performed By: #### CMP, CBC #### [facility] [address] [place] [address] USACalcium [Mass/Vol]7.9 mg/dLLow8.6-10.3The [facility] Physician GroupComment on above:Performed By: #### CMP, CBC #### [facility] [address] [place] [address] USAChloride [Moles/Vol]110 mmol/BCylr41-281Fma [facility] Physician GroupComment on above:Performed By: #### CMP, CBC #### [facility] [address] [place] [address] USACO2 [Moles/Vol]26.6 mmol/UZybpmp50.0-31.0The [facility] Physician GroupComment on above:Performed By: #### CMP, CBC #### [facility] [address] [place] [address] USACreatinine [Mass/Vol]0.58 mg/dLLow0.60-1.20The [facility] Physician GroupComment on above:Performed By: #### CMP, CBC #### [facility] [address] [place] [address] USACreatinine Clr Calc Ylfuefzw022.83NoAtrium Health Waxhaw Physician GroupComment on above:Result Comment: PERFORMED BY: [place] [address] PATHOLOGIST REFRIGERATOR REPAIR TECHNICIAN MARQUITA BOLAÑOS M.D.Performed By: #### CMP, CBC #### [place] [address] USAGFR/1.73 sq M.predicted MDRD (S/P/Bld) [Vol rate/Area] mL/min/{1.73_m2}NormalThe [facility] Physician GroupComment on above:Performed By: #### CMP, CBC #### [facility] [address] [place] [address] USAGlobulin (S) [Mass/Vol]2.0 g/dLAdventHealth Palm Coast Physician GroupComment on above:Performed By: #### CMP, CBC #### [place] [address] USAGlucose [Mass/Vol]104 mg/vJCapr11-240Ujd [facility] Physician GroupComment on above:Result Comment: Random Glucose Reference Range is dependent on time and content of last meal. Glucose of more than 200 mg/dL in a nonstressed, ambulatory subject supports the diagnosis of Diabetes Mellitus. ADA recommended reference rangePerformed By: #### CMP, CBC #### [place] [address] USAPotassium [Moles/Vol]3.3 mmol/LLow3.5-5.1The [facility] Physician GroupComment on above:Performed By: #### CMP, CBC #### [place] [address] USAProtein [Mass/Vol]5.3 g/dLLow6.4-8.9The [facility] Physician GroupComment on above:Performed By: #### CMP, CBC #### [place] [address] USASodium [Moles/Vol]140 mmol/ZNenamt593-219Jyj [facility] Physician GroupComment on above:Performed By: #### CMP, CBC #### [place] [address] USAUrea nitrogen [Mass/Vol]9 mg/dLNormal7-25The [facility] Physician GroupComment on above:Performed By: #### CMP, CBC #### [place] [address] USACreatine Kinaseon 83-21-6505TN [Catalytic activity/Vol]51 U/QDnxctj45-476Xju [facility] Physician GroupComment on above:Result Comment: PERFORMED BY: [place] [address] PATHOLOGIST REFRIGERATOR REPAIR TECHNICIAN MARQUITA BOLAÑOS M.D.Performed By: #### CK #### [place] [address] USACreatine kinase [Enzymatic activity/volume] in Serum or PlasmaOrdered By: Leola Smith on 92-80-9053BO [Catalytic activity/Vol]Creatine kinase [Enzymatic activity/volume] in Serum or Xoogtl73-665SsjtmusyrDayton Va Medical CenterCreatinine [Mass/volume] in Serum or PlasmaOrdered By: Leola Smith on 95-36-2893Kophpodnxt [Mass/Vol]Creatinine [Mass/volume] in Serum or PlasmaLow0.60-1.20[facility] Medical CenterECG 12 lead ECGon 10-17-2024 ECG 12 lead ECGW[facility] [address] Electrocardiograph Report Signed Patient: Noe Duran MR#: [id number] : 1995 Acct:[id number] Age/Sex: 29 / F ADM Date: 10/15/24 Loc: Room: [address] [place] [address] Type: ADM IN Attending Dr: Leola Smith [...] rhythm Normal ECG Confirmed by Lina Meredith ([id number]) on 10/17/2024 1:51:09 PM Referred By: Electronically Signed By: Lina Meredith Transcribed By: MUS Signed By Lina Meredith MD [address] [place] [address] Physician GroupEosinophils Auto (Bld) [#/Vol]Ordered By: Leola Smith on 66-58-8848Ukzyxhcftjm (Bld) [#/Vol]Automated eosinophil count0.0-0.45[facility] Medical CenterEosinophils/100 WBC Auto (Bld) Ordered By: Leola Smith on 71-16-1937Aimrptlcjxt/100 WBC (Bld)Automated eosinophil %.[facility] Medical CenterErythrocyte distribution width Auto (RBC) [Ratio]Ordered By: Leola Smith on 62-89-2945Ywvmnojhclt distribution width (RBC) [Ratio]Erythrocyte distribution width [Ratio] by Automated gkdgtCjbl04.9-15.3FProMedica Fostoria Community HospitalGlobulin Calc (S) [Mass/Vol]Ordered By: Leola Smith on 31-53-6325Zmafvhaa (S) [Mass/Vol]Serum globulin measurement by calculation (mass/volume)[facility] CenterGlucose [Mass/volume] in Serum or PlasmaOrdered By: Leola Smith on 51-31-2881Evbgeyn [Mass/Vol]Glucose [Mass/volume] in Serum or LrwmgzZezb59-067 [facility] CenterComment on above:ADA recommended reference rangeRandom Glucose Reference Range is dependent on time and content of last meal. Glucose of more than 200 mg/dL in a nonstressed, ambulatory subject supports the diagnosisof Diabetes Mellitus.HIV 1/O/2 Antigen/Antibodyon 04-21-0589ZVH Screen 4th GenerationNon-ReactiveNormalNon ReactiveThe [facility] Physician GroupComment on above:Result Comment: HIV-1/HIV-2 antibodies and HIV-1 p24 antigen were NOT detected. There is no laboratory evidence of HIV infection. HIV Negative Performed at: [facility] [place] [address] Proofer: Justice Flor PhD, Phone: [phone] By: #### RPR W RFX, HIV SCREEN #### [facility] ,HIV antibody and antigen panelOrdered By: Leola Smith on 24-48-0203UIN 1+2 Ab+HIV1 p24 Ag IA QlHIV 1 and HIV-2 antibody assay with HIV-1 p24 antigen detectionNon ReactiveDayton Va Medical CenterComment on above: HIV-1/HIV-2 antibodies and HIV-1 p24 antigen were NOTdetected. There is no laboratory evidence of HIV infection.HIV NegativePerformed at: [facility] [id number] Director: Justice Flor PhD, Phone: [phone] Auto (Bld) [Volume fraction]Ordered By: Leola Smith on 21-57-3725Zwkqhlfuac (Bld) [Volume fraction]Hematocrit [Volume Fraction] of Blood by Automated afcwrHeu26.0-46.4FProMedica Fostoria Community HospitalHemoglobin [Mass/volume] in BloodOrdered By: Leola Smith on 10-17-2024 Hemoglobin (Bld) [Mass/Vol]Hemoglobin [Mass/volume] in SxmscGuf68.8-15.4 [facility] CenterLeukocytes [#/volume] corrected for nucleated erythrocytes in Blood by Automated counOrdered By: Leola Smith on 10-17-2024 WBC corrected for nucl RBC Auto (Bld) [#/Vol]Leukocytes [#/volume] corrected for nucleated erythrocytes in Blood by Automated coun3.8-11.6FProMedica Fostoria Community HospitalLymphocytes Auto (Bld) [#/Vol]Ordered By: Leola Smith on 13-88-0961Cptjeqnblzd (Bld) [#/Vol]Lymphocytes [#/volume] in Blood by Automated count1.00-4.8[facility] Medical CenterLymphocytes/100 WBC Auto (Bld) Ordered By: Leola Smith on 68-28-9892Knhajegzpms/100 WBC (Bld)Lymphocytes/100 leukocytes in Blood by Automated count.[facility] Medical CenterMCH Auto (RBC) [Entitic mass]Ordered By: Leola Smith on 51-05-2046TLT (RBC) [Entitic mass]MCH [Entitic mass] by Automated count24.7-34.3FProMedica Fostoria Community HospitalMCHC Auto (RBC) [Mass/Vol]Ordered By: Leola Smith on 72-22-3583AUJK (RBC) [Mass/Vol]MCHC [Mass/volume] by Automated count32.0-35.0[facility] Medical CenterMCV Auto (RBC) [Entitic vol]Ordered By: Leola Smith on 47-80-9175DCE (RBC) [Entitic vol]MCV [Entitic volume] by Automated countLow 80-100[facility] Medical CenterMonocytes Auto (Bld) [#/Vol]Ordered By: Leola Smith on 58-91-4720Xixxsgloy (Bld) [#/Vol]Automated blood monocyte count 0.0-0.8[facility] Medical CenterMonocytes/100 WBC Auto (Bld)Ordered By: Leola Smith on 85-74-3276Hciuxiyxa/100 WBC (Bld)Automated monocyte %.[facility] Medical CenterNeutrophils Auto (Bld) [#/Vol]Ordered By: Leola Smith on 68-13-2991Llfpaieevcq (Bld) [#/Vol]Neutrophils [#/volume] in Blood by Automated count1.8-7.7FProMedica Fostoria Community HospitalNeutrophils/100 WBC Auto (Bld)Ordered By: Leola Smith on 46-05-2800Kpjuqlkzbfy/100 WBC (Bld)Automated neutrophil %.[facility] CenterNo Panel InformationOrdered By: Leola Smith on 83-12-0353Lcxv-Nuclear Antibody Comment 2Comment.[facility] Medical CenterComment on above:Pattern Potential Disease Association Homo geneous Systemic Lupus Erythematosus, Drug Induced Systemic Lupus Erythematosus, Chronic Autoimmunehepatitis, Juvenile Idiopathic Arthritis Speckled Sjogren Syndrome, Systemic Lupus Erythematosus, Subacute Cutaneous Lupus, Lupus, Congenital Heart Block, Mixed Connective Tissue Disease, Scleroderma-diffuse, Scleroderma- Autoimmune Myositis Overlap Syndrome, Systemic Lupus Jacddumisowih-Vyhaspgcsng-Tbogmcekio Myositis Overlap Syndrome, Systemic Autoimmune Rheumatic Disease, Undifferentiated Connective Tissue Disease Nucleolar Systemic Sclerosis, Scleroderma-Autoimmune Myositis Overlap Syndrome, Sjogren Syndrome, Raynaud phenomenon, Pulmonary Arterial Hypertension, Systemic Autoimmune Rheumatic Disease, Cancer Centromere Scleroderma-CREST, Limited Cutaneous SSc, Raynaud's Phenomenon, Primary Biliary Cholangit is Nuclear Dot Primary Biliary Cholangitis Nuclear Primary Biliary Cholangitis, AutoimmuneMembrane Hepatitis/Liver disease, Systemic Autoimmune Rheumatic Disease, Autoimmune Cytopenias, Linear Scleroderma, Antiphospholipid Syndrome Performed at: [facility] [id number] Director: Justice Flor PhD, Phone: [phone] GFR (CKD-EPI)> 60.0 mL/MinDayton Va Medical CenterPharmacy Creatinine Clearance (Clni549.83[facility] Medical CenterNucleated erythrocytes [Presence] in Blood by Automated countOrdered By: Leola Smith on 59-91-3666Ylqinhvlg RBC Auto Ql (Bld)Nucleated erythrocytes [Presence] in Blood by Automated count0-0.5FProMedica Fostoria Community HospitalPlatelet mean volume Auto (Bld) [Entitic vol]Ordered By: Leola Smith on 15-13-8718Fivrczyh mean volume (Bld) [Entitic vol]Platelet mean volume [Entitic volume] in Blood by Automated count6.3-10.7FProMedica Fostoria Community HospitalPlatelets Auto (Bld) [#/Vol]Ordered By: Leola Smith on 34-36-2010Ghniwwicw (Bld) [#/Vol]Platelets [#/volume] in Blood by Automated voert887-287EopilslwdDayton Va Medical CenterPotassium [Moles/volume] in Serum or PlasmaOrdered By: Leola Smith on 88-31-8822Orygypwma [Moles/Vol]Potassium [Moles/volume] in Serum or PlasmaLow3.5-5.1FProMedica Fostoria Community Hospital Protein [Mass/volume] in Serum or PlasmaOrdered By: Leola Smith on 10-17-2024 Protein [Mass/Vol]Protein [Mass/volume] in Serum or PlasmaLow6.4-8.9[facility] Medical CenterRBC Auto (Bld) [#/Vol]Ordered By: Leola Smith on 30-77-1175OMH (Bld) [#/Vol]Erythrocytes [#/volume] in Blood by Automated count 3.60-5.00[facility] CenterRPR w/rfx to Quant TP Abson 10-17-2024 RPR, Rfx Quant RPRNon-ReactiveNormalNon ReactiveThe [facility] Comment on above:Result Comment: Performed at: [facility] [email or web address] [id number] Proofer: Justice Flor PhD, Phone: [phone] PERFORMED BY: [place] [address] PATHOLOGIST REFRIGERATOR REPAIR TECHNICIAN MARQUITA BOLAÑOS M.D.Performed By: #### RPR W RFX, HIV SCREEN #### [facility] ,Serum RPR testOrdered By: Leola Smith on 56-77-0833Oenenn Ab RPR Ql (S)Reagin Ab [Presence] in Serum by RPRNon ReactiveDayton Va Medical Center Comment on above:Performed at: [facility] [email or web address] [id number] Director: Justice Flor PhD, Phone: [phone] nuclear antibody titerOrdered By: Leola Smith on 72-48-7762Oganqzo Ab (S) [Titer]Serum nuclear antibody titerAbnormal.[facility] Medical CenterComment on above:Negative <1:80 Borderline 1:80 Positive >1:80Serum or plasma albumin/globulin mass ratioOrdered By: Leola Smith on 10-17-2024 Albumin/Globulin [Mass ratio]Serum or plasma albumin/globulin mass ratio [facility] Centererum or plasma anion gap determinationOrdered By: Leola Smith on 69-18-9285Phvzl gap [Moles/Vol]Serum or plasma anion gap determination6.0-15.0[facility] Centererum speckled pattern antinuclear antibody (LIZBETH) titerOrdered By: Leola Smith on 02-97-7928Qacdlcvf nuclear Ab pattern (S) [Titer]Serum speckled pattern antinuclear antibody (LIZBETH) titerHigh.[facility] Medical CenterComment on above:Dense Fine Speckled pattern is noted. This pattern suggeststhe presence of DFS70 antibody which hasa low prevalencein systemic autoimmune rheumatic diseases.ICAP nomenclature: AC-2,4,5,29Sodium [Moles/volume] in Serum or PlasmaOrdered By: Leola Smith on 16-23-4060Rweyri [Moles/Vol]Sodium [Moles/volume] in Serum or Dbwasx488-264 [facility] Medical CenterUrea nitrogen [Mass/volume] in Serum or Plasma Ordered By: Leola Smith on 46-50-2966Qcpg nitrogen [Mass/Vol]Urea nitrogen [Mass/volume] in Serum or Plasma7-25[facility] Medical CenterWBC Auto (Bld) [#/Vol]Ordered By: Leola Smith on 74-51-7383XAA (Bld) [#/Vol]Leukocytes [#/volume] in Blood by Automated count3.8-11.6FProMedica Fostoria Community Hospital Ammoniaon 69-38-8545Ojsftqh (P) [Moles/Vol]27 umol/EQeectu45-64Zou [facility] Physician GroupComment on above:Result Comment: PERFORMED BY: [address] [address] PATHOLOGIST REFRIGERATOR REPAIR TECHNICIAN MARQUITA BOLAÑOS M.D.Performed By: #### AMM #### [facility] [address] [place] [address] USAAmmonia [Moles/volume] in PlasmaOrdered By: Elfego Muniz on 87-23-4875Jjalgsj (P) [Moles/Vol]Ammonia [Moles/volume] in Plasma 11-35[facility] Medical CenterAnisocytosis LM Ql (Bld)Ordered By: Elfego Muniz on 36-63-4917Dgsnkzjakmic Ql (Bld)Anisocytosis [Presence] in Blood by Light microscopyDayton Va Medical Center Choriogonadotropin.beta subunit [Units/volume] in Serum or PlasmaOrdered By: Leola Smith on 07-48-8412IHA.beta subunit QnChoriogonadotropin.beta subunit [Units/volume] in Serum or PlasmaDayton Va Medical CenterComprehensive Metabolic Panelon 19-54-8415Tynjikc [Mass/Vol]3.7 g/dLNormal3.5-5.7The [facility] Physician GroupComment on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 CSPINE WO CONEXAMINATION: CT CSPINE WO CON HISTORY: DISORIENTATION, UNSPECIFIED [...] Electronically authenticated by: KAMILLA MILLS Date: 2022-11-28 17:54[facility] HospitalCT HEAD WO CONon [id number] HEAD WO CONEXAM: CT HEAD WO CON, CT FACIAL BONES WO CON REASON FOR [...] Electronically authenticated by: KAMILLA MILLS Date: 2022-11-28 18:40NormProMedica Memorial HospitalCULTURE BLOODon [id number] examination of blood, cultureCulture Observations: NO GROWTH AT 5 DAYS.NormalKindred Hospital LimaComment on above:Performed By: #### CBC #### [facility] [address] [address] [address] Hemanth KerrMicroscopic examination of blood, cultureCulture Observations: NO GROWTH AT 5 DAYS.NormalKindred Hospital LimaComment on above:Performed By: #### BLDCX1 #### [facility] [address] [address] [address] Hemanth KerrCovid-19 PCR ([facility])on 01-01-7074ROCC-CoV-2 (COVID-19) RNA ELMO+probe Ql (Unsp spec)Not detectedNormalNOT DETECTEDKindred Hospital Lima Comment on above:Result Comment: When diagnostic testing is negative, the [...] for this test is supported by the Donor Services Technician of Health and Human Service's declaration [...] which the test may no longer be used).Performed By: #### LACT #### [facility] [address] [place] [address] Dr. Hemanth KerrDRUG SCREEN RAPID (URINE)on [id number]ddeALKQQGLE [facility] LimaComsheridan community hospital on above:Performed By: #### PREG #### [facility] [address] [place] [address] Dr. Hemanth KerrBARNegativeNormalNEGATIVEKindred Hospital LimaComment on above: Performed By: #### PREG #### [facility] [address] [place] [address] Dr. Hemanth KerrBUPNegativeNormalNEGATIVEKindred Hospital LimaComsheridan community hospital on above: Performed By: #### PREG #### [facility] [address] [place] [address] Dr. Hemanth KerrBZONegativeNormalNEGATIVEKindred Hospital LimaComment on above: Performed By: #### PREG #### [facility] [address] [place] [address] Dr. Hemanth KerrCOCNegativeNormalNEGATIVEKindred Hospital LimaComsheridan community hospital on above: Performed By: #### PREG #### [facility] [address] [place] [address] Dr. Hemanth StuartT-[facility]ERE [facility] Valley Community HospitalComment on above: Result Comment: AMP (Amphetamine): 500ng/mL, BAR (Barbituates): 200 ng/mL, BZO (Benzodiazepines): 150 ng/mL, BUP (Buprenorphine): 10 ng/mL, YOLANDA (Cocaine): 150 ng/mL, mAMP (Methamphetamine): 500 ng/mL, MTD (Methadone): 200 ng/mL, OPI (Opiates): 100 ng/mL, OXY (Oxycodone): 100 ng/mL, PCP (Phencyclidine): 25 ng/mL, PPX (Propoxyphene): 300 ng/mL, THC (Cannabinoids): 50 ng/mL, TCA (Trycyclic Antidepressants): 300 ng/mLPerformed By: #### PREG #### [facility] [address] [place] [address] Dr. Hemanth KerrDRUG CUT HEADERDRUG CLASS TEST SYSTEM CUT-OFF CONCENTRATIONS ARE FOLLOWS:NormalThe [facility] Hospitalment on above:Performed By: #### PREG #### [facility] [address] [place] [address] Dr. Hemanth KerrmAMPPositiveAbnormalNEGATIVEKindred Hospital LimaComment on above:Performed By: #### PREG #### [facility] [address] [place] [address] Dr. Hemanth KerrMTDNegativeNormalNEGATIVEMiddletown Hospital on above: Performed By: #### PREG #### [facility] [address] [place] [address] Dr. Hemanth KerrOPINegativeNormalNEGATIVEKindred Hospital LimaComment on above: Performed By: #### PREG #### [facility] [address] [place] [address] Dr. Hemanth KerrOXYNegativeNormalNEGATIVEKindred Hospital LimaComment on above: Performed By: #### PREG #### [facility] [address] [place] [address] Dr. Hemanth KerrPCPNegativeNormalNEGATIVEKindred Hospital LimaComment on above: Performed By: #### PREG #### [facility] [address] [place] [address] Dr. Yilan ChangPPXNegativeNormalNEGATIVEKindred Hospital LimaComment on above: Performed By: #### PREG #### [facility] [address] [address] [address] Hemanth KerrTCANegativeNormalNEGATIVEKindred Hospital LimaComsheridan community hospital on above: Performed By: #### PREG #### [facility] [address] [address] [address] Hemanth KerrTHCNegativeNormalNEGATIVEKindred Hospital LimaComment on above: Performed By: #### PREG #### [facility] [address] [address] [address] Hemanth Machado URINE PROFILEon 66-89-7442Pgphsnwyl Ql (U)NegativeNormal NEGATIVEKindred Hospital LimaComment on above:Performed By: #### PREG #### [facility] [address] [address] [address] Hemanth KerrCldane (U)CLEARNormalCLEARKindred Hospital LimaComment on above: Performed By: #### PREG #### [facility] [address] [address] [address] Hemanth Vang (U)LT. YELLOWNormalYELLOWKindred Hospital LimaComsheridan community hospital on above:Performed By: #### PREG #### [facility] [address] [address] [address] Hemanth Hewitt micrscopic examination will be performed if indicated. NormalThe [facility] SpringfieldComment on above:Performed By: #### PREG #### [facility] [address] [address] [address] Hemanth KerrGlucose Ql (U)NegativeNormalNEGATIVEKindred Hospital LimaComment on above:Performed By: #### PREG #### [facility] [address] [address] [address] Hemanth KerrHemoglobin Ql (U)NegativeNormalNEGATIVEKindred Hospital [facility]ima on above:Performed By: #### PREG #### [facility] [address] [address] [address] Hemanth KerrKetones Ql (U)NegativeNormalNEGATIVEThe [facility] SpringfieldComment on above:Performed By: #### PREG #### [facility] [address] [address] [address] Hemanth KerrLEUKOCYTESNegativeNormalNEGATIVEThe [facility] SpringfieldComment on above:Performed By: #### PREG #### [facility] [address] [address] [address] Hemanth Akbartrite Ql (U)PositiveAbnormalNEGATIVEThe [facility] on above:Performed By: #### PREG #### [facility] [address] [address] [address] Hemanth KerrpH (U)7.5 [pH]Normal5-9The [facility] SpringfieldComment on above: Performed By: #### PREG #### [facility] [address] [place] [address] Dr. Hemanth KerrSPEC GRAVITY1.581Cogjdy9.005-<=1.025The [facility] SpringfieldComment on above:Performed By: #### PREG #### [facility] [address] [place] [address] Dr. Hemanth Matthews PROTEINTRACENormalNEGATIVE/ TRACEThe [facility] SpringfieldComment on above:Performed By: #### PREG #### [facility] [address] [place] [address] Dr. Hemanth Morrison MICRO INDINDICATEDNoChildren's Hospital of ColumbusComment on above: Performed By: #### PREG #### [facility] [address] [place] [address] Dr. Hemanth Lottbilinogen Qn (U)1.0 {Jose'U}/dLNormal0.2 - 1.0The [facility] SpringfieldComment on above:Performed By: #### PREG #### [facility] [address] [place] [address] Dr. Saxena ChangETHANOL (BLD ALC)on [id number] NOTENOTE: 80 mg/dl is the legal limit for a blood alcohol levelNoChildren's Hospital of ColumbusComment on above: Performed By: #### CMP #### [facility] [address] [address] [address] Saxena ChangEthanol [Mass/Vol]mg/dLNormalThe [facility] SpringfieldComment on above:Performed By: #### CMP #### [facility] [address] [place] [address] Dr. Hemanth FontanezCTATE/LACTIC ACIDon 79-92-1147Idcnlkl [Moles/Vol]0.7 mmol/L Normal0.4-2.0The [facility] SpringfieldComment on above:Performed By: #### LACT #### [facility] [address] [place] [address] Dr. Hemanth KerrLactate [Moles/Vol]9.0 mmol/LCritically high0.4-2.0The [facility] SpringfieldComment on above:Performed By: #### LACT #### [facility] [address] [place] [address] Dr. Hemanth Kay VENOUS BLOODon 41-47-1435HTW2 JMROMD01.6 mmHgCritically low 40.0-52.0The [facility] SpringfieldComment on above:Performed By: #### PHVEN #### [facility] [address] [place] [address] Dr. Hemanth Kay VENOUS7.625Xrznox5.330-7.430The [facility] SpringfieldComment on above:Performed By: #### PHVEN #### [facility] [address] [place] [address] Dr. Hemanth KerrPOINT OF CARE GLUCOSEon 60-55-8865Mydqhbv [Mass/Vol]127 mg/dL Critically lqxe18-223Kvd [facility] SpringfieldComment on above:Performed By: #### CBC #### [facility] [address] [place] [address] Dr. Hemanth AndreaG HCG QUALon [id number], QUALNegativeNormalNEGATIVE The [facility] SpringfieldComment on above:Performed By: #### PREG #### [facility] [address] [place] [address] Dr. Hemanth Nguyen 14(COMP METB)on 74-98-3701Zqgxspw [Mass/Vol]3.7 g/dLNormal 3.4-5.0The [facility] SpringfieldComment on above:Performed By: #### LACT #### [facility] [address] [place] [address] Dr. Hemanth KerrAlbumin/Globulin [Mass ratio]1.3 {ratio}NormalThe [facility] SpringfieldComment on above:Performed By: #### LACT #### [facility] [address] [place] [address] Dr. Hemanth McleanP [Catalytic activity/Vol]72 U/WWhxuli04-344Iur [facility] SpringfieldComment on above:Performed By: #### LACT #### [facility] [address] [place] [address] Dr. Hemanth McleanT [Catalytic activity/Vol]42 U/KGvvrau79-33Fcr [facility] SpringfieldComment on above:Performed By: #### LACT #### [facility] [address] [place] [address] Dr. Hemanth Anguiano gap [Moles/Vol]16.3 mmol/LNormalThe [facility] Comment on above:Performed By: #### LACT #### [facility] [address] [place] [address] Dr. Hemanth KerrAST [Catalytic activity/Vol]45 U/LCritically pwyg57-33Utn [facility] SpringfieldComment on above:Performed By: #### LACT #### [facility] [address] [place] [address] Dr. Hemanth KerrBilirubin [Mass/Vol]0.4 mg/dLNormal0.2-1.0The [facility] Comment on above:Performed By: #### LACT #### [facility] [address] [place] [address] Dr. Hemanth KerrCalcium [Mass/Vol]8.8 mg/dLNormal8.5-10.1The [facility] Comment on above:Performed By: #### LACT #### [facility] [address] [place] [address] Dr. Yilan ChangChloride [Moles/Vol]107 mmol/BIbwxfh15-865Mmw [facility] Comment on above:Performed By: #### LACT #### [facility] [address] [place] [address] Dr. Hemanth KerrCO2 [Moles/Vol]21.8 mmol/XGhokid66.0-32.0The [facility] Comment on above:Performed By: #### LACT #### [facility] [address] [place] [address] Dr. Hemanth KerrCreatinine [Mass/Vol]1.32 mg/dLCritically high0.55-1.02The [facility]Comment on above:Performed By: #### LACT #### [facility] [address] [place] [address] Dr. Saxena ChangEGFR-AF AEMDMZUS72 mL/min/1.73c1Ipcmuxwuwb low>=60The [facility]Comment on above:Performed By: #### LACT #### [facility] [address] [place] [address] Dr. Hemanth WatsonGFR-NON AF FVYAWBME21 mL/min/1.73p0Pplkleoamk low>=60The [facility]Comment on above:Performed By: #### LACT #### [facility] [address] [place] [address] Dr. Hemanth KerrGlobulin (S) [Mass/Vol]2.9 g/dLNormalThe [facility]Comment on above:Performed By: #### LACT #### [facility] [address] [place] [address] Dr. Hemanth KerrGlucose [Mass/Vol]143 mg/dLCritically mbwh22-630Onp [facility] SpringfieldComment on above:Performed By: #### LACT #### [facility] [address] [place] [address] Dr. Hemanth KerrPotassium [Moles/Vol]3.1 mmol/LCritically low3.5-5.1The [facility]Comment on above:Performed By: #### LACT #### [facility] [address] [place] [address] Dr. Hemanth KerrProtein [Mass/Vol]6.6 g/dLNormal6.4-8.2[facility] Comment on above:Performed By: #### LACT #### [facility] [address] [place] [address] Dr. Hemanth KerrSodium [Moles/Vol]142 mmol/SPwsldm724-211RzaKindred Hospital [facility]ima Comment on above:Performed By: #### LACT #### [facility] [address] [place] [address] Dr. Hemanth Pelaez nitrogen [Mass/Vol]17.0 mg/dLNormal7.0-18.0The [facility]Comment on above:Performed By: #### LACT #### [facility] [address] [place] [address] Dr. Hemanth Pelaez nitrogen/Creatinine [Mass ratio]12.9 mg/mgNoChildren's Hospital of ColumbusComment on above:Performed By: #### LACT #### [facility] [address] [place] [address] Dr. Hemanth LandaIMEkalyani [id number] Coag (PPP) [Relative time]0.97 {INR} NormalKindred Hospital LimaComment on above:Performed By: #### PT, PTT #### [facility] [address] [place] [address] Dr. Hemanth Calvillo GUIDELINESSEE BELOWMercy Health Anderson HospitalComment on above:Result Comment: DESIRED INR: 2.0 - 3.0 CONDITIONS NOT LISTED BELOW 2.5 - 3.5 FOR PROSTHETIC HEART VALVE REPLACEMENT 2.5 - 3.5 RECURRENT THROMBOSIS Performed By: #### PT, PTT #### [facility] [address] [place] [address] Dr. Hemanth KerrPT Coag (PPP) [Time]10.3 sNormal9.0-11.6The [facility] Comment on above:Performed By: #### PT, PTT #### [facility] [address] [place] [address] Dr. Hemanth Stubbs [id number] Coag (Bld) [Time]25.4 gRjiujs90.3-36.2The [facility] on above:Performed By: #### PT, PTT #### [facility] [address] [place] [address] Dr. Hemanht KerrSALICYLATEon 48-20-4330XGJTGQXZUV<2.8Normal<=19.9The [facility] Hospitalment on above:Performed By: #### CMP #### [facility] [address] [place] [address] Dr. Hemanth Martinez, HIGH SENSITIVITYon 15-90-5699IDWNVI4.2 pg/mLNormal 4.0-51.3The [facility] on above:Result Comment: CUT-OFF POINTS HAVE BEEN ESTABLISHED BASED ON THE FOURTH UNIVERSAL DEFINITIONS OF MYOCARDIAL INFARCTION. THE UPPER REFERENCE LIMIT (URL) OF TROPONIN, DEFINED THE 99TH PERCENTILE OF cTnI DISTRIBUTION IN A REFERENCE POPULATION, HAS BEEN CONFIRMED THE DECISION THRESHOLD FOR ME DIAGNOSIS.Performed By: #### CMP #### [facility] [address] [place] [address] Dr. Hemanth Sam 15-36-1786LEM7.476 uIU/mLNormal0.358-3.740The [facility] on above:Performed By: #### LACT #### [facility] [address] [place] [address] Dr. Hemanth WALKER ONLYon [id number]UWDN SEEN The [facility] on above:Performed By: #### PREG #### [facility] [address] [place] [address] Dr. Hemanth Pritchett identified Cx Nom (U)INDICATEDNoalThSumma HealthComsheridan community hospital on above:Performed By: #### PREG #### [facility] [address] [place] [address] Dr. Hemanth Da SilvaENAbnormalNONE [facility] on above: Performed By: #### PREG #### [facility] [address] [place] [address] Dr. Hemanth RichardsonARSE GRANULAR CASTRARENormalThe [facility] SpringfieldComment on above:Performed By: #### PREG #### [facility] [address] [address] [address] Hemanth KerrCrystals LM Nom (Urine sed)NONE SEENNormalNONE SEENThe [facility] on above:Performed By: #### PREG #### [facility] [address] [place] [address] Dr. Saxena ChangEpithelial cells LM Ql (Urine sed)RARENormalNONE SEEN /RAREThe [facility]Com[facility] on above:Performed By: #### PREG #### [facility] [address] [place] [address] Dr. Hemanth KerrMUCOUSNONE SEENNormalNONE SEENMiddletown Hospital on above:Performed By: #### PREG #### [facility] [address] [place] [address] Dr. Hemanth KerrRdpjfEVE0-3Lbuxnu7-9Nbo [facility] on above:Performed By: #### PREG #### [facility] [address] [place] [address] Dr. Hemanth KerrWBC2-5AbnormalNONE SEENMiddletown Hospital on above: Performed By: #### PREG #### [facility] [address] [place] [address] Dr. Hemanth KerrXR CHEST 1 Von [id number] CHEST 1 VEXAM: XR CHEST 1 V REASON FOR EXAM: [...] Electronically authenticated by: KAMILLA MILLS Date: 2022-11-28 17:39NoChildren's Hospital of ColumbusCULTURE URINEon [id number] URINEIsolate 1 Escherichia coli >100,000 cfu/mL of ORGANISM [...] <=0.12 S F Nitrofurantoin <=16 S F Trimethoprim/Sulfamethoxazole >=320 R FNormalThe [facility]Comment on above:Performed By: #### URCX #### [facility] [address] [place] [address] Dr. Hemanth Toledo AUTO DIFFon [id number] #0.0 103/ulNormal0.0-0.1The [facility] SpringfieldComment on above:Performed By: #### CBC #### [facility] [address] [place] [address] Dr. Hemanth Erwinsophils/100 WBC (Bld)0.3 %Normal0.2-2.0[facility] Comment on above:Performed By: #### CBC #### [facility] [address] [place] [address] Dr. Hemanth Pablo #0.0 103/ulNormal0.0-0.7The [facility] SpringfieldComment on above: Performed By: #### CBC #### [facility] [address] [place] [address] Dr. Hemanth Watsonosinophils/100 WBC (Bld)0.4 %Critically low0.9-7.0The [facility] SpringfieldComment on above:Performed By: #### CBC #### [facility] [address] [place] [address] Dr. Hemanth Watsonrythrocyte distribution width (RBC) [Ratio]12.2 %Blmusm33.0-15.0 The [facility] SpringfieldComment on above:Performed By: #### CBC #### [facility] [address] [address] [address] Hemanth KerrHematocrit (Bld) [Volume fraction]38.6 %Etixop96.0-48.0The [facility] SpringfieldComment on above:Performed By: #### CBC #### [facility] [address] [address] [address] Hemanth KerrHemoglobin (Bld) [Mass/Vol]12.0 g/hAEsolxu62.0-16.0The [facility] HospitalComment on above:Performed By: #### CBC #### [facility] [address] [place] [address] Dr. Hemanth KerrIG #0.07 10e3/ulCritically high0.00-0.03The [facility] Comment on above:Performed By: #### CBC #### [facility] [address] [place] [address] Dr. Hemanth KerrIG %0.7 %Critically high0.0-0.5The [facility] SpringfieldComment on above:Performed By: #### CBC #### [facility] [address] [place] [address] Dr. Hemanth Greco #1.2 103/ulNormal1.2-3.8The [facility] SpringfieldComment on above:Performed By: #### CBC #### [facility] [address] [place] [address] Dr. Hemanth Castillomphocytes/100 WBC (Bld)12.1 %Critically low20.5-60.0The [facility] SpringfieldComment on above:Performed By: #### CBC #### [facility] [address] [place] [address] Dr. Hemanth KerrMANUAL DIFF REQNONormalThe [facility] SpringfieldComment on above: Performed By: #### CBC #### [facility] [address] [place] [address] Dr. Hemanth Miller (RBC) [Entitic mass]28.0 kyOxzfkr11.7-34.0The [facility] HospitalComment on above:Performed By: #### CBC #### [facility] [address] [address] [address] Hemanth MurphyHC (RBC) [Mass/Vol]31.1 g/oRVvgfmp66.9-35.2The [facility]Comment on above:Performed By: #### CBC #### [facility] [address] [address] [address] Hemanth MurphyV (RBC) [Entitic vol]90.2 iXCdhgcv01.0-99.0The [facility] HospitalComment on above:Performed By: #### CBC #### [facility] [address] [address] [address] Hemanth Chavira #0.7 103/ulNormal0.3-0.8The [facility]Comment on above:Performed By: #### CBC #### [facility] [address] [address] [address] Hemanth Bazanocytes/100 WBC (Bld)6.9 %Normal1.7-12.0[facility] Comment on above:Performed By: #### CBC #### [facility] [address] [address] [address] Hemanth Joseph #8.1 103/ulCritically high1.4-6.5The [facility] Comment on above:Performed By: #### CBC #### [facility] [address] [address] [address] Hemanth Regaladoutrophils/100 WBC (Bld)79.6 %Critically high43.0-75.0The [facility] SpringfieldComment on above:Performed By: #### CBC #### [facility] [address] [address] [address] Hemanth Chavezlet mean volume (Bld) [Entitic vol]10.8 fLNormal9.5-13.5The [facility] SpringfieldComment on above:Performed By: #### CBC #### [facility] [address] [address] [address] Hemanth KerrPLT452 103/ulCritically lddi307-784Zqt [facility] on above:Performed By: #### CBC #### [facility] [address], [place] [address] Dr. Hemanth KerrRBC4.28 106/ulNormal4.20-5.40The [facility] on above:Performed By: #### CBC #### [facility] [address], [place] [address] Dr. Hemanth KerrWBC10.1 103/ulNormal4.0-11.0The [facility] on above:Performed By: #### CBC #### [facility] [address], [place] [address] Dr. Hemanth KerrCT ABD/PELVIS WO CONon [id number] ABD/PELVIS WO CONEXAMINATION: CT ABD/PELVIS WO CON HISTORY: Flank pain [...] Electronically authenticated by: CHRISTINE SÁNCHEZ Date: 2022-10-11 14:45NoK[facility] URINE PROFILEon 16-59-1600Rnvchlyfa Ql (U)NegativeNormal NEGATIVEKindred Hospital LimaComment on above:Performed By: #### LACT #### [facility] [address] [address] [address] Hemanth KerrClarity (U)CLEARNormalCLEARKindred Hospital LimaComment on above: Performed By: #### LACT #### [facility] [address] [address] [address] Hemanth Vang (U)LT. YELLOWNormalYELLOWKindred Hospital LimaComment on above:Performed By: #### LACT #### [facility] [address] [place] [address] Dr. Hemanth Hewitt micrscopic examination will be performed if indicated. NormalKindred Hospital LimaComment on above:Performed By: #### LACT #### [facility] [address] [place] [address] Dr. Hemanth KerrGlucose Ql (U)NegativeNormalNEGATIVEKindred Hospital LimaComment on above:Performed By: #### LACT #### [facility] [address] [address] [address] Hemanth KerrHemoglobin Ql (U)LARGEAbnormalNEGATIVEKindred Hospital [facility]ima on above:Performed By: #### LACT #### [facility] [address] [address] [address] Hemanth KerrKetones Ql (U)NegativeNormalNEGATIVEKindred Hospital LimaComment on above:Performed By: #### LACT #### [facility] [address] [address] [address] Hemanth KerrLEUKOCYTESSMALLAbnormalNEGATIVEKindred Hospital LimaComment on above:Performed By: #### LACT #### [facility] [address] [place] [address] Dr. Hemanth KerrNitrite Ql (U)NegativeNormalNEGATIVEKindred Hospital LimaComment on above:Performed By: #### LACT #### [facility] [address] [address] [address] Hemanth KerrpH (U)6.5 [pH]Normal5-9The [facility]Comment on above: Performed By: #### LACT #### [facility] [address] [address] [address] Hemanth KerrProtein (U) [Mass/Vol]30 mg/dLAbnormalNEGATIVE/ TRACEThe [facility] SpringfieldComment on above:Performed By: #### LACT #### [facility] [address] [place] [address] Dr. Hemanth KerrSPEC GRAVITY<=1.733Qhkhdwak6.005-<=1.025The [facility] Comment on above:Performed By: #### LACT #### [facility] [address] [place] [address] Dr. Hemanth KerrUR MICRO INDINDICATEDNormalThe [facility] SpringfieldComment on above: Performed By: #### LACT #### [facility] [address] [place] [address] Dr. Hemanth KerrUrobilinogen Qn (U)1.0 {Jose'U}/dLNormal0.2 - 1.0The [facility] on above:Performed By: #### LACT #### [facility] [address] [place] [address] Dr. Hemanth KerrPREG HCG QUALon [id number], QUALNegativeNormalNEGATIVE The [facility] SpringfieldComment on above:Performed By: #### PREG #### [facility] [address] [place] [address] Dr. Hemanth eKrrPROF CHEM 8 (BAS METB)on 12-44-4153Hrhxb gap [Moles/Vol]9.4 mmol/LNormalThe [facility] SpringfieldComment on above:Performed By: #### LACT #### [facility] [address] [place] [address] Dr. Hemanth KerrCalcium [Mass/Vol]8.8 mg/dLNormal8.5-10.1The [facility] Comment on above:Performed By: #### LACT #### [facility] [address] [address] [address] Hemanth KerrChloride [Moles/Vol]97 mmol/LCritically wyb83-215Oht [facility] SpringfieldComment on above:Performed By: #### LACT #### [facility] [address] [address] [address] Hemanth KerrCO2 [Moles/Vol]32.4 mmol/LCritically high21.0-32.0The [facility] SpringfieldComment on above:Performed By: #### LACT #### [facility] [address] [address] [address] Hemanth KerrCreatinine [Mass/Vol]0.65 mg/dLNormal0.55-1.02The [facility] SpringfieldComment on above:Performed By: #### LACT #### [facility] [address] [address] [address] Hemanth WatsonGFR-AF SYRIAN>60Normal>=60The [facility] SpringfieldComment on above:Performed By: #### LACT #### [facility] [address] [address] [address] Hemanth WatsonGFR-NON AF SYRIAN>60Normal>=60The [facility] SpringfieldComment on above:Performed By: #### LACT #### [facility] [address] [address] [address] Hemanth KerrGlucose [Mass/Vol]117 mg/dLCritically vtzs24-515Cyc [facility] SpringfieldComment on above:Performed By: #### LACT #### [facility] [address] [address] [address] Hemanth KerrPotassium [Moles/Vol]2.8 mmol/LCritically low3.5-5.1The [facility] SpringfieldComment on above:Performed By: #### LACT #### [facility] [address] [address] [address] Hemanth KerrSodium [Moles/Vol]135 mmol/LCritically muz969-646Geq [facility] SpringfieldComment on above:Performed By: #### LACT #### [facility] [address] [address] [address] Hemanth Pelaez nitrogen [Mass/Vol]8.0 mg/dLNormal7.0-18.0The [facility] SpringfieldComment on above:Performed By: #### LACT #### [facility] [address] [address] [address] Hemanth Pelaez nitrogen/Creatinine [Mass ratio]12.3 mg/mgNoPremier Health Miami Valley Hospitale [facility]Comment on above:Performed By: #### LACT #### [facility] [address] [address] [address] Hemanth Castelan MICROSCOPIC ONLYon 50-22-1776RHVUMSKGUYUFVLtesfwhmBAVT SEEN [facility] on above:Performed By: #### LACT #### [facility] [address] [address] [address] Hemanth Pritchett identified Cx Nom (U)INDICATEDNoChildren's Hospital of ColumbusComsheridan community hospital on above:Performed By: #### LACT #### [facility] [address] [address] [address] Hemanth Rosas SEENNormalNONE SEENMiddletown Hospital on above:Performed By: #### LACT #### [facility] [address] [address] [address] Hemanth Forrester LM Nom (Urine sed)NONE SEENNormalNONE SEENMiddletown Hospital on above:Performed By: #### LACT #### [facility] [address] [address] [address] Saxena ChangEpithelial cells LM Ql (Urine sed)FEWAbnormalNONE SEEN /RAREThe [facility]Coms[facility] on above:Performed By: #### LACT #### [facility] [address] [address] [address] Hemanth CarsonCOUSSAMANTHAE SEENWinston SalemNONE SEENMiddletown Hospital on above:Performed By: #### LACT #### [facility] [address] [place] [address] Dr. Hemanth SimmonsRfsuuZZD1-3Fcpjro8-2Ydn [facility] HospitalComment on above:Performed By: #### LACT #### [facility] [address] [place] [address] Dr. Hemanth KerrGysalLBT66-60RrobqgliMHME SEENThe [facility] SpringfieldComment on above: Performed By: #### LACT #### [facility] [address] [place] [address] Dr. Hemanth Escalona QUANT HCGon 15-27-3672BYF QUANT66 mIU/mLNormalThe [facility] SpringfieldComment on above:Performed By: #### CMP #### [facility] [address] [place] [address] Dr. Hemanth Snider RANGESEE BELOWMercy Health Anderson HospitalComment on above: Result Comment: 5-50 0.2-1 WEEK 50-500 1-2 WEEKS 100-5,000 2-3 WEEKS 500-10,000 3-4 WEEKS 1,000-50,000 4-5 WEEKS 10,000-100,000 5-6 WEEKS 15,000-200,000 6-8 WEEKS 10,000-100,000 2-3 MONTHSPerformed By: #### CMP #### [facility] [address] [place] [address] Dr. Hemanth Toledo AUTO DIFFon 11-87-6636LETA #0.0 103/ulNormal0.0-0.1The [facility] SpringfieldComment on above:Performed By: #### LACT #### [facility] [address] [place] [address] Dr. Hemanth Erwinsophils/100 WBC (Bld)0.6 %Normal0.2-2.0[facility] Comment on above:Performed By: #### LACT #### [facility] [address] [place] [address] Dr. Hemanth Pablo #0.1 103/ulNormal0.0-0.7The [facility] SpringfieldComment on above: Performed By: #### LACT #### [facility] [address] [place] [address] Dr. Hemanth Watsonosinophils/100 WBC (Bld)1.3 %Normal0.9-7.0The [facility] Comment on above:Performed By: #### LACT #### [facility] [address] [place] [address] Dr. Hemanth Watsonrythrocyte distribution width (RBC) [Ratio]12.0 %Rtyjhz04.0-15.0 The [facility] SpringfieldComment on above:Performed By: #### LACT #### [facility] [address] [place] [address] Dr. Hemanth KerrHematocrit (Bld) [Volume fraction]35.6 %Critically low36.0-48.0 The [facility] SpringfieldComment on above:Performed By: #### LACT #### [facility] [address] [place] [address] Dr. Hemanth KerrHemoglobin (Bld) [Mass/Vol]12.4 g/bEGwblhq77.0-16.0The [facility] SpringfieldComment on above:Performed By: #### LACT #### [facility] [address] [place] [address] Dr. Hemanth Granados #0.02 10e3/ulNormal0.00-0.03The [facility] SpringfieldComment on above:Performed By: #### LACT #### [facility] [address] [place] [address] Dr. Hemanth KerrIG %0.3 %Normal0.0-0.5The [facility] Hospitalment on above: Performed By: #### LACT #### [facility] [address] [place] [address] Dr. Hemanth CastilloMPH #1.9 103/ulNormal1.2-3.8The [facility] SpringfieldComment on above:Performed By: #### LACT #### [facility] [address] [place] [address] Dr. Hemanth Castillomphocytes/100 WBC (Bld)27.5 %Eanquy52.5-60.0The [facility] SpringfieldComment on above:Performed By: #### LACT #### [facility] [address] [place] [address] Dr. Hemanth Borwn DIFF REQNONormalThe [facility] SpringfieldComment on above: Performed By: #### LACT #### [facility] [address] [place] [address] Dr. Hemanth Murphy (RBC) [Entitic mass]29.6 rqZbowzw88.7-34.0The [facility] SpringfieldComment on above:Performed By: #### LACT #### [facility] [address] [place] [address] Dr. Hemanth Murphy (RBC) [Mass/Vol]34.8 g/jGXbliru39.9-35.2The [facility] SpringfieldComment on above:Performed By: #### LACT #### [facility] [address] [place] [address] Dr. Hematnh Murphy (RBC) [Entitic vol]85.0 sJTzdzst69.0-99.0The [facility] SpringfieldComment on above:Performed By: #### LACT #### [facility] [address] [place] [address] Dr. Hemanth Chavira #0.4 103/ulNormal0.3-0.8The [facility] SpringfieldComment on above:Performed By: #### LACT #### [facility] [address] [place] [address] Dr. Hemanth Bazanocytes/100 WBC (Bld)6.3 %Normal1.7-12.0The [facility] Comment on above:Performed By: #### LACT #### [facility] [address] [place] [address] Dr. Hemanth Joseph #4.5 103/ulNormal1.4-6.5The [facility] SpringfieldComment on above:Performed By: #### LACT #### [facility] [address] [place] [address] Dr. Hemanth Regaladoutrophils/100 WBC (Bld)64.0 %Gyftdz99.0-75.0The [facility] SpringfieldComment on above:Performed By: #### LACT #### [facility] [address] [address] [address] Hemanth KerrPlatelet mean volume (Bld) [Entitic vol]10.6 fLNormal9.5-13.5The [facility] SpringfieldComment on above:Performed By: #### LACT #### [facility] [address] [place] [address] Dr. Hemanth KerrPLT247 103/dzJqgmpu436-145Rte [facility] SpringfieldComment on above: Performed By: #### LACT #### [facility] [address] [place] [address] Dr. Hemanth KerrRBC4.19 106/ulCritically low4.20-5.40The [facility] on above:Performed By: #### LACT #### [facility] [address] [place] [address] Dr. Hemanth KerrWBC7.0 103/ulNormal4.0-11.0The [facility] SpringfieldComment on above: Performed By: #### LACT #### [facility] [address] [place] [address] Dr. Hemanth KerrCovid-19 PCR ([facility])on [id number]-CoV-2 (COVID-19) RNA ELMO+probe Ql (Unsp spec)Not detectedNormalNOT DETECTEDThe [facility] Comment on above:Result Comment: This test is not yet approved or cleared by the [place] FDA. When there are no FDA-approved or cleared tests available, and other criteria are met, FDA can make tests available under an emergency access mechanism called an Emergency Use Authorization (EUA). The EUA for this test is supported by the Donor Services Technician of Health and Human Service's (HHS's) declaration that circumstances exist to justify the emergency use of in vitro diagnostics for the detection and/or diagnosis of the virus that causes COVID- 19. This EUA will remain in effect (meaning [...] of clinical signs and symptoms consistent with SARS-CoV-2.Performed By: #### CMP #### [facility] [address] [place] [address] Dr. Hemanth Escalona QUANT HCGon 31-06-7574XNN JKMQB55668 mIU/mLNCleveland Clinic Akron GeneralComment on above:Performed By: #### PREG #### [facility] [address] [place] [address] Dr. Hemanth KRISHNAN [facility] HospitalComs[facility]idan [facility] on above: Result Comment: 5-50 0.2-1 WEEK 50-500 1-2 WEEKS 100-5,000 2-3 WEEKS 500-10,000 3-4 WEEKS 1,000-50,000 4-5 WEEKS 10,000-100,000 5-6 WEEKS 15,000-200,000 6-8 WEEKS 10,000-100,000 2-3 MONTHSPerformed By: #### PREG #### [facility] [address] [place] [address] Dr. Hemanth Escalona QUANT HCGon 47-99-1323MBX SGESS51073 mIU/mLNCleveland Clinic Akron GeneralComsheridan community hospital on above:Performed By: #### PREG #### [place] [address] Dr[address] Hemanth KRISHNAN [facility] HospitalComsheridan community hospital on above: Result Comment: 5-50 0.2-1 WEEK 50-500 1-2 WEEKS 100-5,000 2-3 WEEKS 500-10,000 3-4 WEEKS 1,000-50,000 4-5 WEEKS 10,000-100,000 5-6 WEEKS 15,000-200,000 6-8 WEEKS 10,000-100,000 2-3 MONTHSPerformed By: #### PREG #### [facility] [address] [place] [address] Dr. Hemanth Fairbanks PREG TVon [id number] PREG TVEXAMINATION: US PREG TV HISTORY: Routine care COMPARISON: [...] Electronically authenticated by: CHRISTINE SÁNCHEZ Date: 2022-08-14 16:22[facility] HospitalUS PREG TVon [id number] PREG TVEXAMINATION: US PREG TV HISTORY: Missed period COMPARISON: [...] Electronically authenticated by: CHRISTINE SÁNCHEZ Date: 2022-07-27 17:04[facility] HospitalXR CHEST 1 Von [id number] CHEST 1 VPORTABLE CHEST X-RAY. INDICATION: Cough. COMPARISON: 10/11/2021 TECHNIQUE: Single AP portable chest radiograph. FINDINGS: TUBES AND LINES: None. LUNGS: Lungs are clear. PLEURA: No effusions or pneumothorax. HEART AND MEDIASTINUM: Within normal limits for portable technique. OSSEOUS STRUCTURES: No acute abnormality. IMPRESSION: No acute findings. Electronically authenticated by: FELIX WEBB Date: 2022-07-09 12:06[facility] HospitalCNPNon [id number] (HEMASA) NOE DURAN ([id number]) 1995 F Date Time Provider Department 12/12/21 KING SUAZO During your visit today, we recorded the following information about you: Angelia Tha 12/12/2021 11:16 AM Signed Pleases sign pending new cbc order. Thanks, Angelia Almazan MA Allergies As of Date: 12/12/2021 (No Known Allergies) Date Reviewed: 12/12/2021 Reviewed by: Jasmin Zuñiga APRN.SANIPRACTIC PHYSICIAN - Fully Assessed Reason for Visit: Lab Orders [1688] Primary Visit Diagnosis:Iron deficiency anemia, unspecified iron deficiency anemia type [D50.9] Order(s):CBC + DIFF [SQCBCDIF] Order #: [id number] FUTURE Prescriptions as of 12/12/2021 - gabapentin (NEURONTIN) 400 mg capsule Take by mouth. - Polysaccharide Iron Complex 180 mg iron cap Take by mouth. - aspirin 81 mg cap Take 81 mg by mouth once daily. - ONDANSETRON HCL ORAL Take 4 mg by mouth as needed. Problem List As Of Date: 12/12/2021 (None) Encounter Status:Closed by JASMIN ZUÑIGA on 12/12/21[facility] [id number] (HEMASA) NOE DURAN ([id number]) 1995 F Date Time Provider Department 11/10/21 [...] B12 is slightly low. Options would be neic-dad-anpnruw B12 tablets 2 mg daily or start [...] Status:Closed by JENNYFER DE LA O on 11/10/21NoCorey HospitalCNOVSPon 48-28-0430UZXKDEAobfk (SP) Office (HEMASA) NOE DURAN ([id number]) 1995 F Date Time Provider Department 11/08/21 11:00 AM KING SUAZO During your visit today, we recorded the following information about you: Temperature Pulse Respiration Blood pressure 97.7 degrees 108/minute 16/minute 127/70 Weight 93.4 kg King Suazo MD 11/08/2021 3:47 PM Signed PATIENT NAME: Noe Duran DATE: 11/08/2021 PRIMARY CARE PHYSICIAN: Dr. Rodo Lincoln OTHER PHYSICIANS: Dr. Yousif Aparicio HPI: This [...] shortness of breath, and is seen at [place] emergency room. Labs revealed a hemoglobin of [...] mood/affect changes, r (more content not included)... NormalOhioHealth Metabolic Panelon 86-34-3350Ebromij [Mass/Vol]3.6 g/dLLow3.9-4.9CMercy Health Allen HospitalComment on above:Performed By: #### SERFOL, IRON, B12, FERR #### [facility] LxDATA [facility] [place] [address] NWY [Catalytic activity/Vol]79 U/UYquqcr66-731XjoysauxyCorey Hospital on above:Performed By: #### SERFOL, IRON, B12, FERR #### [facility] [address] [place], [place] [phone] [Catalytic activity/Vol]8 U/LNormal7-38St. Vincent Hospitalment on above:Performed By: #### SERFOL, IRON, B12, FERR #### [facility] [address] [place], [place] [phone] gap [Moles/Vol]9 mmol/LNormal9-18[facility] Comment on above:Performed By: #### SERFOL, IRON, B12, FERR #### [facility] [address] [place], [place] [phone] [Catalytic activity/Vol]13 U/UStovsz92-19IgetazrznCorey Hospital on above:Performed By: #### SERFOL, IRON, B12, FERR #### [facility] [address] [place], [place] [phone] [Mass/Vol]0.2 mg/dLNormal0.2-1.3CMercy Health Allen Hospital Comment on above:Performed By: #### SERFOL, IRON, B12, FERR #### [place] [address] [place] [address] Nbfttkq [Mass/Vol]9.3 mg/dLNormal8.5-10.2CMercy Health Allen Hospital Comment on above:Performed By: #### SERFOL, IRON, B12, FERR #### [place] [address] Hwjpcuty [Moles/Vol]102 mmol/BIduhbp57-454XmyudrzahRegional Medical Center Comment on above:Performed By: #### SERFOL, IRON, B12, FERR #### [place] [address] TH6 [Moles/Vol]23 mmol/EDaeldu74-49SjleonsyuRegional Medical CenterComment on above:Performed By: #### SERFOL, IRON, B12, FERR #### [place] [address] Nmocuusisp [Mass/Vol]0.55 mg/dLLow0.58-0.96Regional Medical CenterComment on above:Performed By: #### SERFOL, IRON, B12, FERR #### [place] [address] dKTR- Amer.>60NormalClevelFormerly McDowell HospitalComment on above:Performed By: #### SERFOL, IRON, B12, FERR #### [place] [address] fGAD-All Other Races>60NormalCMercy Health Allen HospitalComment on above:Result Comment: eGFR (Estimated GFR) Units of measure: [...] visit the National Kidney Foundation website at kidney.org/professiona ls/kdoqi/gfr_calculator.Performed By: #### SERFOL, IRON, B12, FERR #### [facility] [place] [address] Mghpsbl [Mass/Vol]96 mg/oVVmidyu50-44RwvkbwugfRegional Medical Center Comment on above:Result Comment: The Citizen Of The [place] Diabetes Association (ADA) provides guidance for cutoff [...] Medical Care in Diabetes 2016, Citizen Of The [place] Diabetes Association. Diabetes Care. 2016.39(Suppl 1).Performed By: #### SERFOL, IRON, B12, FERR #### [facility] [address] [place] [address] Teplhnmya [Moles/Vol]3.3 mmol/LLow3.7-5.1CMercy Health Allen Hospital Comment on above:Performed By: #### SERFOL, IRON, B12, FERR #### [facility] [address] [place] [address] Eqtsyty [Mass/Vol]6.3 g/dLNormal6.3-8.0[facility] Comment on above:Performed By: #### SERFOL, IRON, B12, FERR #### [facility] [address] [place] [address] Riiene [Moles/Vol]134 mmol/VDjf403-279VhhdcudltRegional Medical Center Comment on above:Performed By: #### SERFOL, IRON, B12, FERR #### [address] [address] Tvhf nitrogen [Mass/Vol]4 mg/dLLow7-21[facility] Comment on above:Performed By: #### SERFOL, IRON, B12, FERR #### [place] [address] Hammtoyspi 66-89-6839Wglmvrkj [Mass/Vol]203.0 ng/oZKpcrdm38.7-205.1 [facility] Medical CenterComment on above:Performed By: #### SERFOL, IRON, B12, FERR #### [place] [address] Mypqdr, Serumon 71-37-3808Nuoybn [Mass/Vol]8.5 ng/mLNormal>4.7 [facility] CenterComment on above:Performed By: #### SERFOL, IRON, B12, FERR #### [address] [address] Ybcv and TIBCon 27-12-0386Sdnk [Mass/Vol]93 ug/vIKumkel26-047 [facility] Medical CenterComsheridan community hospital on above:Performed By: #### SERFOL, IRON, B12, FERR #### [address] [address] YKHO062 ug/iSObyi438-293UsipbzelvRegional Medical CenterComment on above: Performed By: #### SERFOL, IRON, B12, FERR #### [address] [address] Azndgnsbdmd Fgeusmrb13 %Farijw15-94MtbvkzvyoRegional Medical CenterComment on above:Performed By: #### SERFOL, IRON, B12, FERR #### [facility] [address] [place] [id number] Gnikkx CBCDIF (for [facility] use only)on 79-65-6304Blu Baso<0.03Normal <0.11CMercy Health Allen HospitalAbs Mono0.57 k/uLNormal<0.87[facility] Medical CenterAbs Neut4.67 k/uLNormal1.45-7.50[facility] Medical CenterAbsolute nRBC <0.01Normal<0.01[facility] Medical CenterBasophils/100 WBC (Bld)0.3 %Normal Regional Medical CenterDTYPEAuto DiffNormalCMercy Health Allen Hospital Eosinophils (Bld) [#/Vol]0.05 10*3/uLNormal<0.46[facility] Eosinophils/100 WBC (Bld)0.8 %NormalRegional Medical CenterErythrocyte distribution width (RBC) [Ratio]29.9 %High11.5-15.0[facility] Hematocrit (Bld) [Volume fraction]32.6 %Low36.0-46.0[facility] Hemoglobin (Bld) [Mass/Vol]10.1 g/dLLow11.5-15.5CMercy Health Allen Hospital Lymphocytes (Bld) [#/Vol]1.25 10*3/uLNormal1.00-4.00[facility] Lymphocytes/100 WBC (Bld)19.1 %NormalRegional Medical CenterMCH25.1 pGLow 26.0-34.0Regional Medical CenterMCHC (RBC) [Mass/Vol]31.0 g/oBBdseex06.5-36.0 [facility] Medical CenterMCV (RBC) [Entitic vol]81.1 nVDnmuai85.0-100.0 [facility] CenterMonocytes/100 WBC (Bld)8.7 %NormalRegional Medical CenterNeutrophils/100 WBC (Bld)71.1 %NormalRegional Medical CenterNRBCs0.0 /100 XVGExpuuz0FztekxopxRegional Medical CenterPlatelet mean volume (Bld) [Entitic vol]10.3 fLNormal9.0-12.7CMercy Health Allen HospitalPlatelets (Bld) [#/Vol]223 10*3/gRPqxbve768-025CwbnguzlqCorey Hospital on above:Result Comment: Result checked and verified Sample checked for a clot.RBC (Bld) [#/Vol]4.02 10*6/uLNormal3.90-5.20[facility] Medical CenterWBC (Bld) [#/Vol]6.56 10*3/uLNormal3.70-11.00[facility]ional Medical CenterReticulocyteon 74-97-3425Cpa Retic0.140 M/uLHigh0.0180-0.1000[facility] on above:Performed By: #### SERFOL, IRON, B12, FERR #### [place] [address] [place] [address] Bjrte%3.5 %High0.4-2.0[facility] on above: Performed By: #### SERFOL, IRON, B12, FERR #### [place] [address] [place] [address] Xmsqijq B12on 76-28-7518Rsvpjblgu (Vitamin B12) [Mass/Vol]218 pg/mL Psa386-5501KmnjnzkijMercy Health St. [facility] on above:Performed By: #### SERFOL, IRON, B12, FERR #### [place] [address] [place] [address] CBAfi 44-65-7897Skmuqojabfu distribution width (RBC) [Ratio]14.7 % High11.8 - 14.4 %[facility]- [place], KYHematocrit (Bld) [Volume fraction]36.0 %Low 36.3 - 47.1 %[facility]- [place], KYHemoglobin (Bld) [Mass/Vol]10.9 g/dLLow11.9 - 15.1 g/dLMer Health- [place], KYInterpretation and review of laboratory results AbnormalMer Health- [place], KYMCH (RBC) [Entitic mass]26.2 pg25.2 - 33.5 pgMercy Health- [place], KYMCHC (RBC) [Mass/Vol]30.3 g/dL28.4 - 34.8 g/dLMorrow County Hospitalcy Health- [place], [place] MCV (RBC) [Entitic vol]86.5 fL82.6 - 102.9 fLMorrow County Hospitalcy Health- [place], KYPlatelet mean volume (Bld) [Entitic vol]10.8 fL8.1 - 13.5 fLWhite Hospital Health- [place], KYPlatelets (Bld) [#/Vol]328 10*3/uLMorrow County Hospitalcy Health- [place], KYRBC (Bld) [#/Vol]4.16 10*6/uL3.95 - 5.11 m/uLMorrow County Hospitalcy Health- [place], KYWBC (Bld) [#/Vol]0.0 10*3/uL0.0 per 100 WBCWhite Hospital Health- [place], KYWBC (Bld) [#/Vol]5.7 10*3/uLWhite Hospital Health- [place], KYComprehensive Metabolic Panelon 89-51-5558Lhmgjmd [Mass/Vol]3.4 g/dLLow3.5 - 5.2 g/dLWhite Hospital Health- [place], KYAlbumin/Globulin [Mass ratio]1.5 {ratio}[facility]- [place], KYALP [Catalytic activity/Vol]40 U/L35 - 104 U/LMercy Health- [place], KYALT [Catalytic activity/Vol]12 U/L5 - 33 U/LMercy Health- [place], KYAnion gap [Moles/Vol]9 mmol/L9 - 17 mmol/LMercy Health- [place], KYAST [Catalytic activity/Vol]12 U/L<32[facility]- [place], KYBilirubin Ql (U)<0.10Low0.3 - 1.2 mg/dLMorrow County Hospitalcy Health- [place], KYBun/Cre Xjcwq04NgerCkuph Health- [place], KYCalcium [Mass/Vol]9.3 mg/dL8.6 - 10.4 mg/dLMorrow County Hospitalcy Health- [place], KYChloride [Moles/Vol]109 mmol/LHigh98 - 107 mmol/LMercy Health- [place], KYCO2 [Moles/Vol]26 mmol/L20 - 31 mmol/LMercy Health- [place], KYCreatinine [Mass/Vol]0.57 mg/dL0.5 - 0.9 mg/dLHenry County Hospital, KYGFR >60 >60 mL/minMercy Health [facility] [place], KYGFR Non->60>60 mL/minMercy Health – [facility] [place], KYGlucose [Mass/Vol]92 mg/dL70 - 99 mg/dLHenry County Hospital, KYInterpretation and review of laboratory resultsAbnormalHenry County Hospital, KYPotassium [Moles/Vol]3.8 mmol/L3.7 - 5.3 mmol/LMercy [facility] [place], KYProtein [Mass/Vol]5.7 g/dLLow6.4 - 8.3 g/dLHenry County Hospital, KYSodium [Moles/Vol]144 mmol/L135 - 144 mmol/LMtrihealth bethesda north hospitaly [facility] [place], KYUrea nitrogen [Mass/Vol]15 mg/dL6 - 20 mg/dLHenry County Hospital, KYHCG Qualitative, Serumon 80-07-6031xQL QualNegativeNEGATIVEHenry County Hospital, KYComment on above:Specimens with hCG levels near the threshold of the test (25 mIU/mL) may give a negative or indeterminate result. In such cases, another test should be performed with a new specimen in 48-72 hours. If early is suspected clinically in this setting, correlation with quantitative serum b-hCG level is suggested. Jingshi Wanwei has confirmed the use of plasma for this test. This has not been cleared or approved by the U.S. Food and Drug Administration. The FDA has determined that such clearance is not necessary. HIV Screenon 67-07-0017J[place] Ag/AbNONREACTIVENONREACTIVEHenry County Hospital, [place] Comment on above:No laboratory evidence of HIV infection. If acute HIV infection is suspected, consider testing for HIV-1 RNA. Hepatitis Panel, Acuteon 76-47-6650XSX IgM IA Qn (S)NONREACTIVENONREACTIVEHenry County Hospital, MTHep B Core Ab, IgMNONREACTIVENONREACTIVEHenry County Hospital, [place] Hepatitis B Surface AgNONREACTIVENONREACTIVEHenry County Hospital, KYHepatitis C Ab REACTIVEAbnormalNONREACTIVEHenry County Hospital, KYComment on above: The hepatitis C procedure used [...] Health Department Interpretation and review of laboratory resultsAbnormalHenry County Hospital, [place] Metabolic Panelon 12-07-6978BCS/1.73 sq M predicted among non-blacks MDRD (S/P/Bld) [Vol rate/Area][facility], KYComment on above:Stage 1: Some kidney damage normal GFR Stage 2: Mild kidney damage GFR 60-89 Stage 3: Moderate kidney damage GFR 30-59 Stage 4: Severe kidney damage GFR 15-29 Stage 5: Severe kidney damage GFR <15 ESRD - chronic treatment by dialysis or transplant Average GFR for 20-29 years old: 116 mL/min/1.73sq m Chronic Kidney Disease: <60 mL/min/1.73sq m Kidney failure: <15 mL/min/1.73sq m eGFR calculated using average adult body mass. Additional eGFR calculator available at: http://www.WatchParty/multiple_crcl_2012.htm Microscopic Urinalysison 44-48-9537Rxymsdfal, UANOT REPORTEDNoneMeWadsworth-Rittman Hospital [place], KYBacteria, UANOT REPORTEDNonProMedica Flower Hospital Health- [place], KYCasts UANOT REPORTED/LPF [facility], KYCrystals, UA5 TO 10AbnormalNone /[facility]OS[facility]ITALMercy Health- [place], [place] Crystals, UACALCIUM OXALATEAbnormalNone /[facility] HOSPITALMer Health- [place], KYEpithelial Cells UA0 TO 2[facility]- [place], KYInterpretation and review of laboratory results AbnormalMercy Health- [place], KYMucus, UATRACEAbnormalNoneMey Health- [place], KYOther Observations UANOT REPORTEDNOT REQ.[facility], KYRBC (U) [#/Vol]NoneMercy Health- [place], KYRenal Epithelial, UANOT REPORTED0 /HPFMercy Health- [place], [place] Trichomonas, UANOT REPORTEDNoneMey Health- [place], KYWBC, UA0 TO 2[facility]- [place], KYYeast, UANOT REPORTEDNoneMercy Health- [place], [place]-[facility]- [place], [place] Urinalysis Reflex to Cultureon 90-73-4261Qfpeorfok UrineNegativeNEGATIVEMercy Health- [place], KYColor, UAYELLOWYELLOWMercy Health- [place], KYGlucose, UrNegative NEGATIVEMercy Health- [place], KYInterpretation and review of laboratory results AbnormalMercy Health- [place], KYKetones Ql (U)NegativeNEGATIVEMercy Health- [place], [place] Leukocyte esterase Test strip Ql (U)NegativeNEGATIVEMercy Health- [place], KYNitrite, UrineNegativeNEGATIVEMercy Health- [place], KYpH, UA6.5[facility]- [place], KYProtein (U) [Mass/Vol]NegativeNEGATIVEMercy Health- [place], KYSpecific Black, UA1.025High [facility]- [place], KYTurbidity UACLEARCLEARMercy Health- [place], KYUrinalysis CommentsNOT REPORTEDMercy Health- [place], KYUrine HgbNegativeNEGATIVEMercy Health- [place], KYUrobilinogen, UrineNormalNormalMercy Health- [place], KYED Clinical Summaryon [id number] Clinical Summary [address] [address] ED Clinical Summary Person Information Name: Kathryn Duran/[facility] Age: 25 Years : 1995 Sex: Female PCP: Marital Status: Single Phone: Race: White Ethnicity: Not or Language: Latvian Visit Reason: Drug withdrawal; Drug withdrawal Acuity: 3 Enc Type: Emergency Med Service: Emergency Medicine Arrival: 03/16/2020 20:10:45 Discharge: 03/17/2020 02:12:00 LOS: 000 06:02 Checkin: 03/16/2020 20:10:45 Checkout: 03/17/2020 02:12:00 Dispo Type: Home or Self Care Address: [address] [place] [id number] Provider Notes: Diagnosis: 1:Affective disorder; 2:Drug usage [...] range between ( 27.2 and 40.8 ) [place] Auto: 11.4 % -- Normal range between [...] range between ( 36.0 and 46.0 ) [place] Absolute: 1.5 x10 MCH: 27.4 pg -- [...] 03/16/2020 20:20:41 Follow up: With: Address: When: [facility] - In [place], [place] Within 1 to 2 days Discharge Orders: Discharge Patient 03/17/20 1:45:00 EDT, Discharge to Home, Self Patient Education Information: Understanding Methamphetamine Abuse and Addiction; Treating Affective (Mood) Disorders [facility] Poison Help line: . [facility] Hotline: [place] Tobacco Quit Line: [facility] ([place], [place]) [address]: [phone] [facility] ([place], [place]) [address]: [phone] [facility] [address] [place], [place]: [phone] [facility] Community HospitalhCG Quantitativeon 55-92-0057Ixxb hCG Qnt1.7 mIU/mLNormal0.0-4.9BKindred Hospital LimaComment on above:Result Comment: 0.0 - 4.9 Negative for 5.0 - 25.0 Indeterminant for : Suggest repeat in 72 hours. >25.0 Positive for PregnancyPerformed By: #### HCG ####[address] [address].UA Microscp Aon 60-01-9535UN Hyline Cast Qual>20AbnormalNegativeHarrison Community HospitalComment on above:Performed By: #### CD:[id number] ####[address] [address]IT MucusPresentAbnormalAbsentHarrison Community HospitalComment on above:Performed By: #### CD:[id number] ####[address] [address]PL RBC Quant12 /HPFHigh0-5 [facility] Community HospitalComment on above:Performed By: #### CD:[id number] ####[address] [address]IE Squepi Cells Quant6 /HPFNormal0-29H[facility] Community HospitalComment on above: Performed By: #### CD:[id number] ####[address] [address]SJ WBC Quant7 /HPFHigh0-5BKindred Hospital Lima Comment on above:Performed By: #### CD:[id number] ####[place] [address] [place] [address].eGFRon 04-19-3966pGCB AA52 mL/min/1.73m?Low>=60H[facility] Community HospitalComment on above:Result Comment: Result = 0-14.9 mL/min/1.73 m2 Kidney failure or Dialysis Result = 15-29 mL/min/1.73 m2 Severe decrease in GFR Result = 30-59 mL/min/1.73 m2 Moderate decrease in GFR Result >= 60 mL/min/1.73 m2 Normal or increased GFRPerformed By: #### EGFR #### [address] [address]kQCO Non-AA43 mL/min/1.73m?Low>=60H[facility] HospitalComment on above:Result Comment: Result = 0-14.9 mL/min/1.73 m2 Kidney failure or Dialysis Result = 15-29 mL/min/1.73 m2 Severe decrease in GFR Result = 30-59 mL/min/1.73 m2 Moderate decrease in GFR Result >= 60 mL/min/1.73 m2 Normal or increased GFR Chronic kidney disease is defined as either kidney damage or GFR < 60 mL/min/1.73 m2 for >= 3months. Kidney damage is defined as pathologic abnormalities or markers of damage including abnormalities in blood or urine tests or imaging studies. This GFR is NOT used for medication dosing. Performed By: #### EGFR #### [address] [address]AKG w/ Diffon 21-52-1662Mafintozcds distribution width (RBC) [Ratio]15.9 %High11.6-14.8BKindred Hospital LimaComment on above: Performed By: #### CBC #### [address] [address]Fpuitpprto (Bld) [Volume fraction]37.5 %Zmbkpg04.0-46.0 [facility] HospitalComment on above:Performed By: #### CBC #### [address] [address]Lkhjzbucsh (Bld) [Mass/Vol]12.5 g/oXRoifub32.0-16.0[facility] HospitalComment on above:Performed By: #### CBC #### [address] [address]ESA (RBC) [Entitic mass]27.4 mlMdevmb78.0-35.0B[facility]ille Hospital SystemComment on above:Performed By: #### CBC #### [address] [address]LGAZ (RBC) [Mass/Vol]33.2 %Ptgwnk66.0-37.0B[facility] Hospital SystemComment on above:Performed By: #### CBC #### [address] [address]SSO (RBC) [Entitic vol]82.4 zHThvpwp89.0-100.0H[facility] Community HospitalComment on above:Performed By: #### CBC #### [address] [address]Ffumyvyz mean volume (Bld) [Entitic vol]9.4 fLNormal6.7-10.6 [facility] Community HospitalComment on above:Performed By: #### CBC #### [address] [address]Tbrwbxawj (Bld) [#/Vol]307 x10*3/dzFPoybwj963-253Xzsmlxbxf [facility] SystemComment on above:Performed By: #### CBC #### [address] [address]XCH (Bld) [#/Vol]4.55 x10*6/mcLNormal3.80-5.20[facility] Hospital SystemComment on above:Performed By: #### CBC #### [address] [address]YUZ (Bld) [#/Vol]12.9 x10*3/mcLHigh4.5-11.0B[facility] Hospital SystemComment on above:Performed By: #### CBC #### [address], [place] [address]XCFja 52-11-6270Ytujwpb [Mass/Vol]5.2 g/dLHigh3.2-4.9BKindred Hospital LimaComment on above:Result Comment: [facility] Laboratory updated the methodology used for albumin testing on 04/24/18. Albumin measurement was performed using a bromcresol purple dye-binding assay.Performed By: #### COMP #### [address] [address]Hsjvqhx/Globulin [Mass ratio]1.5 {ratio}Normal1.1-2.2BKindred Hospital LimaComment on above:Performed By: #### COMP #### [address] [address]Ssz Phos47 IU/XRnilyy65-11HpxjmgefqHarrison Community HospitalComment on above:Performed By: #### COMP #### [address] [address]HHF [Catalytic activity/Vol]19 U/CAvlnrm11-41NcqyapamfHarrison Community HospitalComment on above:Performed By: #### COMP #### [address] [address]Zrgay gap [Moles/Vol]22 mmol/LHigh7-17H[facility] Community HospitalComment on above:Performed By: #### COMP #### [address] [address]JYA [Catalytic activity/Vol]31 U/NVoapwz47-19JlvhsgpkoHarrison Community HospitalComment on above:Performed By: #### COMP #### [address] [address]Savm Total1.4 mg/dLHigh0.3-1.2BKindred Hospital Lima Comment on above:Performed By: #### COMP #### [address] [address]Dmxhoks [Mass/Vol]10.2 mg/dLNormal8.5-10.3BKindred Hospital LimaComment on above:Performed By: #### COMP #### [address], [place] [address]Pfljybjk [Moles/Vol]100 mmol/NPvztrh10-916ApleezwtzHarrison Community HospitalComment on above:Performed By: #### COMP #### [address] [address]EI7 [Moles/Vol]19 mmol/XNur08-19IpnpxxhiwHarrison Community Hospital Comment on above:Performed By: #### COMP #### [address] [address]Mwpwtmnnxn [Mass/Vol]1.47 mg/dLHigh0.44-1.03H[facility] HospitalComment on above:Performed By: #### COMP #### [address] [address]Ykdkytn [Mass/Vol]85 mg/rPGnxgbu72-32LeomsysagHarrison Community HospitalComment on above:Performed By: #### COMP #### [address] [address]Pdokvwajb [Moles/Vol]3.7 mmol/LNormal3.4-4.8BKindred Hospital LimaComment on above:Performed By: #### COMP #### [address] [address]Serxesv [Mass/Vol]8.7 g/dLHigh6.5-8.1BKindred Hospital LimaComment on above:Performed By: #### COMP #### [address] [address]Kqcbph [Moles/Vol]137 mmol/HLzackj517-631CaatpsakuHarrison Community HospitalComment on above:Performed By: #### COMP #### [address] [address]Livu nitrogen [Mass/Vol]25 mg/dLNormal8-26H[facility] Community HospitalComment on above:Performed By: #### COMP #### [address] [address]Dvrn nitrogen/Creatinine [Mass ratio]17.0 mg/rqBddvwg52.0-20.0 [facility] HospitalComment on above:Performed By: #### COMP #### [address] [address]RXJoi 46-31-7354Tvepxwnw Fpsemzifdabxq130 IU/QFjfj66-244 [facility] SystemComment on above:Performed By: #### CP #### [address] [address]Qprf Autoon 82-95-2512Jxea Absolute0.0 x10*3/mcLNormal0.0-0.2 [facility] HospitalComment on above:Performed By: #### .Automated Diff #### [address] [address]Qnrzbfwla/100 WBC (Bld)0.4 %Normal0.0-1.5BKindred Hospital LimaComment on above:Performed By: #### .Automated Diff #### [address] [address]Tye Absolute0.0 x10*3/mcLNormal0.0-0.4BKettering Health Behavioral Medical Center SystemComment on above:Performed By: #### .Automated Diff #### [address] [address]Rnrhallhgxu/100 WBC (Bld)0.1 %Normal0.0-5.4BKettering Health Behavioral Medical Center SystemComment on above:Performed By: #### .Automated Diff #### [address] [address]Bgyaxwtssoi (Bld) [#/Vol]1.4 x10*3/mcLNormal1.0-4.8BKettering Health Behavioral Medical Center SystemComment on above:Performed By: #### .Automated Diff #### [address] [address]Izwrarljjdb/100 WBC (Bld)10.8 %Low27.2-40.8BKettering Health Behavioral Medical Center SystemComment on above:Performed By: #### .Automated Diff #### [address] [place] [address]Cvld Absolute1.5 x10*3/mcLHigh0.1-1.1BKindred Hospital LimaComment on above:Performed By: #### .Automated Diff #### [address] [address]Iyitgibce/100 WBC (Bld)11.4 %Normal3.7-11.9BKindred Hospital LimaComment on above:Performed By: #### .Automated Diff #### [address] [address]Xctbxm Eduacyrg80.0 x10*3/mcLHigh1.8-7.7BKindred Hospital LimaComment on above:Performed By: #### .Automated Diff #### [address] [address]Oujjnu Auto77.3 %High47.2-70.8BKindred Hospital Lima Comment on above:Performed By: #### .Automated Diff #### [address] [address]LD Note-Nursingon 40-34-6691BS Note-NursingLab called about add ons Electronically signed by Barbara Holman 03/16/20 20:49 EDTNormalHarrison Community HospitalED Note-Physicianon 59-41-5146MK Note-PhysicianChief Complaint I want to detox. I use [...] that she has residential set up at [facility] in [place], [place] but she has to detox first. Patient denies concern for . reports her last menstrual cyclewas 1 week prior. Patient admits to smoking [...] all extremities x 4 without motor or sensorydeficit] PSYCHIATRIC: [Anxious appearing, fidgeting] Vitals & Measurements [...] well. She was seen by Alonso, social security benefits interviewer who has arranged for her to go to [facility] tomorrow as patient is interested in treatment. Verbally contracted to safety and filled out a safety plan. Alonso withsocial work spoke with aquatics director, Jelena who will arrange for further follow-up when they arrive tomorrow. Family is agreeable with plan. Patient has good support. They will return if any changes of symptoms or concern. Silvia Castañeda scribing for and in the presence of Dr. Cornell. Scribe Attestation: The information in this document, created by the medical voucher clerk for me, accurately reflects the services I personally performed and the decisions made by me. Reexamination/Reevaluation She is resting, calmly in the bed [...] High Lymph Auto 03/16/20 20:39 10.8 Low [place] Auto 03/16/20 20:39 11.4 Eos Auto 03/16/20 20:39 0.1 Basophil Auto 03/16/20 20:39 0.4 Neutro Absolute 03/16/20 20:39 10.0 High Lymph Absolute 03/16/20 20:39 1.4 [place] Absolute 03/16/20 20:39 1.5 High Eos Absolute [...] signed by Lima Cornell MD 03/17/2020 04:16 EDTNormalHarrison Community HospitalEthanolon 66-86-5685Itksgxt [Mass/Vol]mg/dLNormal<=9BlanPremier Health Miami Valley HospitalComment on above:Result Comment: To convert mg/dL to g/dL, divide result by 1,000. Legal limit of intoxication is 80mg/dL (0.08 g/dL).Performed By: #### ALC #### [address] [address]RO w Culture if Indon 18-58-3255Echkb (U)AmberNormMercy Health St. Charles HospitalComment on above:Performed By: #### UCI #### [address] [address]Gypongr (U) [Mass/Vol]NegativeNormalNegChildren's Hospital for RehabilitationComment on above:Performed By: #### UCI #### [address] [place] [address]Vddliyc Ql (U)20 mg/dLAbnormalNegChildren's Hospital for RehabilitationComment on above:Performed By: #### UCI #### [address], [place] [address]ZS BloodSmallAbnormidNegChildren's Hospital for Rehabilitation Comment on above:Performed By: #### UCI #### [address] [place] [address]RY ClarityCloudyNormMercy Health St. Charles HospitalComment on above:Performed By: #### UCI #### [address] [address]RC Leukocyte EsteraseTraceAbnormidNegChildren's Hospital for RehabilitationComment on above:Performed By: #### UCI #### [address], [place] [address]SS NitriteNegativeNormalNegativeHarrison Community Hospital Comment on above:Performed By: #### UCI #### [address] [place] [address]RD pH5.0Hqumtn9.5 - 7.8BlanPremier Health Miami Valley HospitalComment on above:Performed By: #### UCI #### [address], [place] [address]CF Mlsymzz618 mg/dLAbnormalNegativeHarrison Community HospitalComment on above:Performed By: #### UCI #### [address] [place] [address]MO SourceClean CatchNormMercy Health St. Charles HospitalComment on above:Performed By: #### UCI #### [address] [address]OG Spec Grav1.693Jtuzen5.003-1.035H[facility] Community HospitalComment on above:Performed By: #### UCI #### [address] [address]VO Urobilinogen0.2 mg/dLNormal0.2 - 1.0H[facility] Community HospitalComment on above:Performed By: #### UCI #### [address] [address]Nwgfwcqfhvnk Qn (U)SmallAbnormalNegChildren's Hospital for RehabilitationComment on above:Performed By: #### UCI #### [address] [address]CEK Compon 65-29-3595Jufpiaedgx [Mass/Vol]mg/dLNormMercy Health St. Charles HospitalComment on above:Performed By: #### CD:[id number] #### [address] [address]Hv Amph ScrnPositiveAbnormalNEG = <1000[facility] Health SystemComment on above:Result Comment: This unconfirmed positive screening result is to be used for medical treatment purposes only. Unconfirmed screening results must not be used for non-medical purposes. (e.g. employment testing, legal testing).Performed By: #### CD:[id number] #### [address], [place] [address]Po Anastasia ScrnNegativeNormalNEG = <200[facility] SystemComment on above:Performed By: #### CD:[id number] #### [address], [place] [address]Po Benzodia ScrnNegativeNormalNEG = <200[facility] SystemComment on above:Performed By: #### CD:[id number] #### [address], [place] [address]Tr Cannab ScrnNegativeNormalNEG = <50[facility] SystemComment on above:Performed By: #### CD:[id number] #### [address], [place] [address]Ko Cocaine ScrnNegativeNormalNEG = <300[facility] SystemComment on above:Performed By: #### CD:[id number] #### [address], [place] [address]Fi Methadone ScnNegativeNormalNEG = <300[facility] SystemComment on above:Performed By: #### CD:[id number] #### [address], [place] [address]Ix Opiate ScrnNegativeNormalNEG = <300[facility] SystemComment on above:Performed By: #### CD:[id number] #### [address], [place] [address]Yo Oxy ScreenNegativeNormalNEG = <100[facility] SystemComment on above:Performed By: #### CD:[id number] #### [address], [place] [address]Hk Oxy Scrn Qnt54 ng/mLNormal<=99[facility] Comment on above:Performed By: #### CD:[id number] #### [address] [address]Er PCP ScrnNegativeNormalNEG = <25H[facility] Community HospitalComment on above:Performed By: #### CD:[id number] #### [address] [address]UP pH5.0Qguadr7.5 - 7.8BlanPremier Health Miami Valley HospitalComment on above:Performed By: #### CD:[id number] #### [address] [address]YA Spec Grav1.285Dcgxgh0.003-1.035H[facility] Community HospitalComment on above:Performed By: #### CD:[id number] #### [address] [address]JUE Screenon 39-32-5189QUH Ag/AbNONREACTIVEMayfield, KYComment on above:No laboratory evidence of HIV infection. If acute HIV infection is suspected, consider testing for HIV-1 RNA. HCG, Quantitative, Pregnancyon 57-73-3488mJG Zmtpt70479Ayxy<5 IU/LMercy Indiahoma, KYComment on above: Non-preg premeno <=5 Postmeno <=8 Male <=3 If HCG results do not concur with clinical observations, additional testing to confirm results is recommended. Elevated results not associated with may be found in patients with other diseases such as tumors of the germ cells (testis, ovaries, etc.), bladder, pancreas, stomach, lungs, and liver. Interpretation and review of laboratory resultsAbnoMunford, [place] Hepatitis C Antibodyon 99-28-4654Fthqivxso C AbREACTIVEAbnoScalf, KYComment on above: The hepatitis C procedure used [...] Health Department Interpretation and review of laboratory resultsAbnormalMercy Health- [place], [place] TYPE AND SCREENon 54-79-0218EHY/RhPositiveMercy Health- [place], KYUrine Drug Screen, Comprehensiveon 91-89-4273Zjejgefgqrr Screen, UrNegativeNEGATIVE [facility]- [place], KYBarbiturate Screen, UrNegativeNEGATIVEMercy Health- [place], [place] Benzodiazepine Screen, UrineNegativeNEGATIVEMercy Health- [place], KYBuprenorphine UrineNegativeNEGATIVEMercy Health- [place], KYCannabinoid Scrn, UrNegativeNEGATIVE [facility] [place], KYCocaine Metabolite, UrineNegativeNEGATIVEMercy Health- [place], KYMDMA, UrineNOT REPORTEDNEGATIVEMercy Health- [place], KYMethadone Screen, Urine NegativeNEGATIVEMercy Health- [place], KYMethamphetamine, UrineNegativeNEGATIVEMercy Health- [place], KYOpiates, UrineNegativeNEGATIVEMercy Health- [place], KYOxycodone Screen, UrNegativeNEGATIVEMercy Health- [place], KYPhencyclidine, UrineNegative NEGATIVEMercy Health- [place], KYPropoxyphene, UrineNegativeNEGATIVEMercy Health- [place], KYTest InformationNOT REPORTEDMercy Health- [place], KYTricyclic Antidepressants, UrineNegativeNEGATIVEMercy Health- [place], KYComment on above:Drug screen results are to be used for medical purposes only. All positive results are unconfirmed. Testing for employment or legal uses should be sent to a reference laboratory for confirmation. HCG, Quantitative, Pregnancyon 17-49-1458fMS Wkgcv86098Okfy<5 IU/LMercy Health- [place], KYComment on above: Non-preg premeno <=5 Postmeno <=8 Male <=3 If HCG results do not concur with clinical observations, additional testing to confirm results is recommended. Elevated results not associated with may be found in patients with other diseases such as tumors of the germ cells (testis, ovaries, etc.), bladder, pancreas, stomach, lungs, and liver. Interpretation and review of laboratory resultsAbnormalMercy Health- [place], KYHIV Screenon 86-10-4076WOO Ag/AbNONREACTIVEMayfield, KYComment on above:No laboratory evidence of HIV infection. If acute HIV infection is suspected, consider testing for HIV-1 RNA. Hepatitis C Antibodyon 21-57-4349Wgwzlefut C AbREACTIVEAbThayer County Hospital on above: The hepatitis C procedure used [...] Health Department Interpretation and review of laboratory resultsAbVerm[place], [place] PROFILE Ion 60-40-9344Tbxrschsi (Bld) [#/Vol]10*3/[place], KYBasophils/100 WBC (Bld)1 %0 - 2 %[place], KYDifferential TypeNOT REPORTEDHenry County Hospital, MTEosinophils (Bld) [#/Vol]0.09 10*3/[place], KYEosinophils/100 WBC (Bld)2 %1 - 4 %[place], KYErythrocyte distribution width (RBC) [Ratio]15.7 %High11.8 - 14.4 %[place] Hematocrit (Bld) [Volume fraction]36.5 %36.3 - 47.1 %[place], [place] Hemoglobin (Bld) [Mass/Vol]11.2 g/dLLow11.9 - 15.1 g/dLSwan, [place] Hepatitis B Surface AgNONREACTIVEMayfield, KYImmature granulocytes (Bld) [#/Vol]0 %0[place], KYImmature granulocytes (Bld) [#/Vol]10*3/[place], KYInterpretation and review of laboratory resultsAbVermillion, KYLymphocytes (Bld) [#/Vol]1.98 10*3/[place], KYLymphocytes/100 WBC (Bld)46 %High24 - 43 %[facility] CenterH (RBC) [Entitic mass]25.6 pg25.2 - 33.5 pgThe University of Toledo Medical CenterHC (RBC) [Mass/Vol]30.7 g/dL28.4 - 34.8 g/dLSwan, KYMCV (RBC) [Entitic vol] 83.3 fL82.6 - 102.9 fLSwan, KYMonocytes (Bld) [#/Vol]0.37 10*3/uL [facility], MTMonocytes/100 WBC (Bld)9 %3 - 12 %[place], [place] Platelet mean volume (Bld) [Entitic vol]11.6 fL8.1 - 13.5 fLSwan, [place] Platelets (Bld) [#/Vol]NOT REPORTEDS[place], KYPlatelets (Bld) [#/Vol] 196 10*3/uLHenry County Hospital, MTRBC (Bld) [#/Vol]4.38 10*6/uL3.95 - 5.11 m/uL [facility], [facility] morphology finding Nom (Bld)NOT REPORTEDHenry County Hospital, MTRubella virus IgG Ql (S)286.1IU/mLSwan, KYComsheridan community hospital on above: REFERENCE RANGE: <5.0 NON-REACTIVE (non-immune) 5.0 TO 9.9 EQUIVOCAL >=10.0 REACTIVE (immune) Segmented neutrophils/100 WBC (Bld)42 %36 - 65 %[place], KYSegs Absolute1.75[place], KYT. pallidum, IgGNONREACTIVENONREACTIVESwan, KYComsheridan community hospital on above: T. pallidum antibodies are not detected. There is no serological evidence of infection with T. pallidum (early primary syphilis cannot be excluded). Retest in 2-4 weeks if syphilis is clinically suspect. WBC (Bld) [#/Vol]4.2 10*3/uLHenry County Hospital, MTWBC (Bld) [#/Vol]0.0 10*3/uL0.0 per 100 WBCMercy Health- [place], KYWBC MorphologyNOT REPORTEDMercy Health- [place], [place] TYPE AND SCREENon 13-68-6206NKT/RhPositiveMercy Health- [place], KYUrine Drug Screen, Comprehensiveon 47-04-4841Wtbnwzdittj Screen, UrNegativeNEGATIVE [facility]- [place], KYBarbiturate Screen, UrNegativeNEGATIVEMercy Health- [place], [place] Benzodiazepine Screen, UrineNegativeNEGATIVEMercy Health- [place], KYBuprenorphine UrineNegativeNEGATIVEMercy Health- [place], KYCannabinoid Scrn, UrNegativeNEGATIVE [facility] [place], KYCocaine Metabolite, UrineNegativeNEGATIVEMercy Health- [place], KYInterpretation and review of laboratory resultsAbnormalMercy Health- [place], [place] MDMA, UrineNOT REPORTEDNEGATIVEMercy Health- [place], KYMethadone Screen, Urine NegativeNEGATIVEMercy Health- [place], KYMethamphetamine, UrineNegativeNEGATIVEMercy Health- [place], KYOpiates, UrineNegativeNEGATIVEMercy Health- [place], KYOxycodone Screen, UrNegativeNEGATIVEMercy Health- [place], KYPhencyclidine, UrineNegative NEGATIVEMercy Health- [place], KYPropoxyphene, UrineNegativeNEGATIVEMercy Health- [place], KYTest InformationNOT REPORTEDMercy Health- [place], KYTricyclic Antidepressants, UrinePositiveAbnormalNEGATIVEMercy Health- [place], KYComment on above:Drug screen results are to be used for medical purposes only. All positive results are unconfirmed. Testing for employment or legal uses should be sent to a reference laboratory for confirmation. Comprehensive Metabolic Panelon 31-66-8015Zuwarox [Mass/Vol]4.3 g/dL3.5 - 5.2 g/dLMercy Health- [place], KYAlbumin/Globulin [Mass ratio]1.4 {ratio}[facility]- [place], KYALP [Catalytic activity/Vol]50 U/L35 - 104 U/LMercy Health- [place], KYALT [Catalytic activity/Vol]9 U/L5 - 33 U/LMercy Health- [place], KYAnion gap [Moles/Vol] 8 mmol/LLow9 - 17 mmol/LMercy Health- [place], KYAST [Catalytic activity/Vol]15 U/L <32[facility]- [place], KYBilirubin Ql (U)0.31 mg/dL0.3 - 1.2 mg/dLMercy Hospital- [place], KYBun/Cre Qqfsa97Rwqui Health- [place], KYCalcium [Mass/Vol]9.4 mg/dL8.6 - 10.4 mg/dLMercy Health [facility] [place], KYChloride [Moles/Vol]102 mmol/L98 - 107 mmol/LMcleveland clinic Health- [place], KYCO2 [Moles/Vol]28 mmol/L20 - 31 mmol/LMcleveland clinic Health- [place], [place] Creatinine [Mass/Vol]0.92 mg/dLHigh0.5 - 0.9 mg/dLMercy Hospital- [place], KYGFR >60>60 mL/minMercy Hospital- [place], KYGFR Non->60>60 mL/minMercy Hospital- [place], KYGlucose [Mass/Vol]91 mg/dL70 - 99 mg/dLMercy Health – [facility] [place], KYInterpretation and review of laboratory resultsAbnormalHenry County Hospital, KYPotassium [Moles/Vol]4.3 mmol/L3.7 - 5.3 mmol/LMBrown Memorial Hospital- [place], KYProtein [Mass/Vol]7.4 g/dL6.4 - 8.3 g/dLMercy Hospital- [place], KYSodium [Moles/Vol]138 mmol/L 135 - 144 mmol/LMBrown Memorial Hospital- [place], KYUrea nitrogen [Mass/Vol]18 mg/dL6 - 20 mg/dL [facility], KYHepatitis Panel, Acuteon [id number] IgM IA Qn (S) NONREACTIVENONREACTIVEMercy Health – [facility] [place], KYHep B Core Ab, IgMNONREACTIVE NONREACTIVEHenry County Hospital, KYHepatitis B Surface AgNONREACTIVENONREACTIVEMercy Hospital- [place], KYHepatitis C AbREACTIVEAbnormalNONREACTIVEHenry County Hospital, [place] Comment on above: The hepatitis C [...] Health Department Interpretation and review of laboratory resultsAbVermillion, [place] Metabolic Panelon 07-50-2058HWK/1.73 sq M predicted among non-blacks MDRD (S/P/Bld) [Vol rate/Area][place], KYComsheridan community hospital on above:Average GFR for 20-29 years old: 116 mL/min/1.73sq m Chronic Kidney Disease: <60 mL/min/1.73sq m Kidney failure: <15 mL/min/1.73sq m eGFR calculated using average adult body mass. Additional eGFR calculator available at: http://www.WatchParty/multiple_crcl_2011.htm Stage 1: Some kidney damage normal GFR Stage 2: Mild kidney damage GFR 60-89 Stage 3: Moderate kidney damage GFR 30-59 Stage 4: Severe kidney damage GFR 15-29 Stage 5: Severe kidney damage GFR <15 ESRD - chronic treatment by dialysis or transplant Drug Scr, Abuse, Uron 93-30-1645Dycdtiddlkt(s),UrPositiveAbnormalNEGMartins Ferry HospitalComment on above:Result Comment: (Positive cutoff 1000 ng/mL) Performed By: #### ABBEY ####[address] [address] Barbiturate(s),UrNegativermalNEGMartins Ferry Hospital Comment on above:Result Comment: (Positive cutoff 200 ng/mL)Performed By: #### ABBEY ####[address] [address] Base excessNegativeNormalNEGMartins Ferry HospitalComment on above:Result Comment: (Positive cutoff 300 ng/mL)Performed By: #### ABBEY ####[address] [address] Benzodiazepine(s)Negative NormalNEGMartins Ferry HospitalComment on above:Result Comment: (Positive cutoff 200 ng/mL)Performed By: #### ABBEY ####[address] [phone](s),UrNegativeNormalNEGMercy Promedica Flower HospitalComment on above:Result Comment: (Positive cutoff 50 ng/mL) Performed By: #### ABBEY ####[address] [phone] InfoAssay provides medical screening only. The absence of expected drug(s) and/orNormalMercy Promedica Flower HospitalComment on above:Result Comment: metabolite(s) may indicate diluted or adulterated urine, limitations of testing or timing of collection.Testing for legal purposes should be confirmed by another method. To request confirmation of test result, please call the lab within 7 days of sample submission.Performed at [address] [address] [phone] By: #### ABBEY ####[address] [phone](s), UrNegativeNormalNEGMercy Prom[facility] F[facility] Hospital Comment on above:Result Comment: (Positive cutoff 300 ng/mL)Performed By: #### ABBEY ####[address] [address] Oxycodone, UrineNegativeNormalNEGMercy Promedica Flower HospitalComment on above: Result Comment: (Positive cutoff 100 ng/mL)Performed By: #### ABBEY ####[address] [address] Phencyclidine, Ur NegativeNormalNEGMercy Promedica Flower HospitalComment on above:Result Comment: (Positive cutoff 25 ng/mL)Performed By: #### ABBEY ####[address] [phone], methadone presence NegativeNormalNEGMercy Kendall HospitalComment on above:Result Comment: (Positive cutoff 300 ng/mL)Performed By: #### ABBEY ####[address] [phone], UrNOT REPORTEDNormalNEGMercy Promedica Flower HospitalComment on above:Performed By: #### ABBEY ####[address] [address] MDMA, UrineNOT REPORTEDNormalNEGMercy Promedica Flower HospitalComment on above: Performed By: #### ABBEY ####[address] [phone], UrNOT REPORTEDNormalNEGMercy Promedica Flower HospitalComment on above:Performed By: #### ABBEY ####[address] [address] Propoxyphene,UrineNOT REPORTEDNormalNEGMercy Promedica Flower HospitalComment on above:Performed By: #### ABBEY ####[address] [address] Urine, tricyclic antidepressantsNOT REPORTEDNormalNEGMercy [facility] Comment on above:Performed By: #### ABBEY ####[address] [address] Lipid Profileon 87-04-5041Eunrsynfonl 137 mg/dLNormal<200Mercy [facility]lower HospitalComment on above:Result Comment: Cholesterol Guidelines: <200 Desirable 200-240 Borderline >240 Undesirable Performed By: #### LIPR ####[address] [address] Cholesterol to HDL Ratio4.3 {ratio}Normal<5Mercy [facility] Flower HospitalComment on above:Performed By: #### LIPR ####[address] [address] HDL Gqjommxwmbh22 mg/dLLow >40Martins Ferry HospitalComment on above:Result Comment: HDL Guidelines: <40 Undesirable 40-59 Borderline >59 DesirablePerformed By: #### LIPR ####[facility] [place] [address] LDL Mrglyeowdkt92 mg/dLNormal0-130[facility] Ferry HospitalComment on above:Result Comment: LDL Guidelines: <100 Desirable 100-129 Near to/above Desirable 130-159 Borderline >159 UndesirableDirect (measured) LDL and calculated LDL are not interchangeable tests.Performed By: #### LIPR ####[address] [phone] mg/dLNormal<150[facility] HospitalComment on above:Result Comment: Triglyceride Guidelines: <150 Desirable 150-199 Borderline 200-499 High >499 Very high Based on AHA Guidelines for fasting triglyceride, June 2012.Performed at [facility] [address] [place] [address] [phone] By: #### LIPR ####[address] [address] Cholesterol in VLDL mass concNOT REPORTEDNormal1-30[facility]erry HospitalComment on above:Performed By: #### LIPR ####[address] [address] Vital Signs Date TimeVital SignValuePerforming SflilxbcdVsibyytq09-37-8048 14:28-0400Body ltbeyz69.63 kgCorey Markus DO Work Phone: [facility] CenterYgwqwbdpoh75-53-4457 14:28-0400Diastolic blood mm[Hg]Yousif Markus DO Work Phone: [facility] CenterHhteswxvpp84-68-0361 14:28-0400Systolic blood jupxvuil494 mm[Hg]Yousif Markus DO Work Phone: [facility] HospitalSsdhpvhmbw66-35-8771 13:48-0400Body kinqid76.91 kgJody UREÑA Work Phone: [facility] HospitalLnopmfvoig58-87-2425 13:48-0400Diastolic blood udsvhzun74 mm[Hg]Jody UREÑA Work Phone: [facility] HospitalQxhvzyybqd26-52-5769 13:48-0400Systolic blood mm[Hg]Jody UREÑA Work Phone: [phone] [place], [place] [address]Hhsfafswzc81-92-7090 11:30-0400Body ynkwdi97.54 kgCorey Markus DO Work Phone: [phone]-[facility] HospitalUomipdozrf96-00-2124 11:30-0400Diastolic blood prmsuurp90 mm[Hg]Yousif Markus DO Work Phone: [phone]-[facility] HospitalUlqlsllkdb30-08-6715 11:30-0400Systolic blood mm[Hg]Yousif Markus DO Work Phone: [phone] [place], [place] [address]Vvvlkxadqn91-72-4180 10:14-0400Body .91 kgMundo Woody DIRECTOR OF WOMEN'S SERVICES Work Phone: [phone]-[facility] HospitalKnxcpmbwkp79-62-8015 10:14-0400Diastolic blood kaxufgfk04 mm[Hg]Mundo Woody DIRECTOR OF WOMEN'S SERVICES Work Phone: [phone]-[facility] HospitalEtuptjxnnc60-23-9328 10:14-0400Systolic blood krwefqcg450 mm[Hg]Mundo Woody DIRECTOR OF WOMEN'S SERVICES Work Phone: 1([phone] [place], [place] [address]Pubrxhbtnh70-97-3232 11:44-0400Body gjgumj66.94 kgCorey Markus DO Work Phone: 1(539)659-[address] [place], [place] [address]Epskcfuukd53-02-3056 10:03-0400Body vyevbc51.12 kgJody UREÑA Work Phone: [facility] HospitalHqlpetiqll06-[facility]-8273 10:03-0400Diastolic blood uekdlttb38 mm[Hg]Jody UREÑA Work Phone: 1(964)785-[facility] [place], [place] [address]Ohkfcirboj98-80-7922 10:03-0400Systolic blood obfyvnkg585 mm[Hg]Jody Kimble PA Work Phone: 1(227)155-[address] [place], [place] [address]Ftxwirytcr14-38-8500 11:13-0400Body delasr71.56 kgCorey Markus DO Work Phone: 1(279)775-[address] [place], [place] [address]Atknckiyqa72-53-8957 11:13-0400Diastolic blood rjpdnexb21 mm[Hg]Yousif Markus DO Work Phone: 1(759)460-[address] [place], [place] [address]Acxivwafei02-80-7580 11:13-0400Systolic blood omnlwtdo867 mm[Hg]Yousif Markus DO Work Phone: 1(224)021-[address] [place], [place] [address]Jqknnuxbqd02-49-4620 14:18-0400Body .67 kgCorey Markus DO Work Phone: 1(077)178-[address] [place], [place] [address]Ecoylouzvg23-82-7733 14:18-0400Diastolic blood pcsotcxe52 mm[Hg]Yousif Markus DO Work Phone: 1(675)182-[address] [place], [place] [address]Cgelsljmyi81-50-4407 14:18-0400Systolic blood rvoaialy793 mm[Hg]Yousif Markus DO Work Phone: 1(104)452-[address] [place], [place] [address]Xxnklltxup31-92-3121 15:12-0400Body zovqno93.36 [facility] 15:12-0400Diastolic blood rhajxegc51 mm[Hg][facility]04-17-2025 15:12-0400Systolic blood mm[Hg][facility]02-04-2025 07:30-0500Body dkppfunrruk05.7 [degF] PHYSICIAN [facility]02-04-2025 07:30-0500 Diastolic blood kgytjfav14 mm[Hg]PHYSICIAN [facility]02-04-2025 07:30-0500Heart rate85 /minPHYSICIAN [facility]02-04-2025 07:30-0500Respiratory rate16 /minPHYSICIAN [facility]02-04-2025 07:30-8464LnP4% (BldA) [Mass fraction]98 %PHYSICIAN NO [facility]02-04-2025 07:30-0500Systolic blood lufzjenc332 mm[Hg]PHYSICIAN NO [facility]02-03-2025 14:43-0500Body oaxspb253.64 cmPHYSICIAN NO [facility]02-03-2025 09:00-0500Body hjiyfm24.2 kg PHYSICIAN NO [facility]01-31-2025 17:00-0500 Diastolic blood kacjdyun02 mm[Hg]Rochelle Alvarado MD Work Phone: 1(489)[address] [place], [place] [address]01-31-2025 17:00-0500 Heart rate81 /Kain Alvarado MD Work Phone: 1(992)[address] [place], [place] 5511501-31-2025 17:00-0500 Respiratory rate16 /Kain Alvarado MD Work Phone: 1(864)[address] [place], [place] 55[address]01-31-2025 17:00-0500 SaO2% (BldA) [Mass fraction]100 %Rochelle Alvarado MD Work Phone: 1(205)[address] [place], [place] 55[address]01-31-2025 17:00-0500 Systolic blood vvogytyx961 mm[Hg]Rochelle Alvarado MD Work Phone: 1(833)[address] [place], [place] 55[address]01-31-2025 12:00-0500 Body rqivzfmhhrq05.7 [degF]Rochelle Alvarado MD Work Phone: 1(286)[address] [place], [place] 5511501-31-2025 06:00-0500 Body rnaslx58.2 kgDolawanda Alvarado MD Work Phone: 1(463)[address] [place], [place] 5511501-30-2025 16:30-0500 Body wyuxoi864.18 cmRochelle Alvarado MD Work Phone: 1(509)[address] [place], [place] 55[address]01-29-2025 20:45-0500 Diastolic blood nhpgighb67 mm[Hg][facility] 10-15-2024 20:45-0500Heart bifp731 /[facility]01-29-2025 20:45-0500Mean blood mm[Hg][facility]01-29-2025 20:45-0500Respiratory rate14 /[facility]2025 20:45-0500Systolic blood mm[Hg][facility]01-29-2025 20:00-0500Heart rate 89 /[facility]01-29-2025 19:57-0500Diastolic blood efgryhrk15 mm[Hg][facility]01-29-2025 19:57-0500Heart rate95 /[facility]01-29-2025 19:57-0500Mean blood mm[Hg][facility]01-29-2025 19:57-0500Respiratory rate14 /[facility]01-29-2025 19:57-1888WkC8% (BldA) [Mass fraction]99 %[facility]01-29-2025 19:57-0500Systolic blood pressure 115 mm[Hg][facility]01-29-2025 19:00-0500 Diastolic blood ktymbzkx41 mm[Hg][facility] 10-15-2024 19:00-0500Mean blood xeqkjuno23 mm[Hg][facility]01-29-2025 19:00-0500Systolic blood spkwdutq213 mm[Hg][facility]01-29-2025 18:30-0500Respiratory rate16 /min [facility]01-29-2025 18:30-4589KoL9% (BldA) [Mass fraction]99 %[facility]01-29-2025 17:02-6482MdZ5% (BldA) [Mass fraction]99 %[facility]01-29-2025 13:29-0500Body wfmvxzoirmi69.7 [degF][facility]01-29-2025 13:29-0500Heart rate99 /min[facility]01-29-2025 13:14-0500Body asivvasnywd25.7 [degF][facility]01-29-2025 13:14-0500Heart rnyk521 /min [facility] Encounters Encounter DateEncounter TypeCare ProviderFacilityStart: 07-07-2025 End: 48-83-0436Oiviqy outpatient visit 15 minutesCorey Ubersnap Work Phone: noms Alvaro OBGYNComment on above:Third trimester ([facility]); 37 weeks gestation of ([facility])Start: 07-07-2025 End: 43-57-4102Nbcspg flowsheetCorey Markus DO Work Phone: [facility] [place] [facility]BGYNStart: 07-07-2025 End: 51-77-2681Mttgtq flowsheetCorey Markus DO Work Phone: [facility] OBGYNStart: 06-30-2025 End: 18-44-1893Plnsjg outpatient visit 15 minutesAmy Lamin UREÑA Work Phone: noms [place] OBGYNComment on above:Third trimester ([facility]); 36 weeks gestation of ([facility]); H/O pre-eclampsia in prior , currently ([facility]); H/O miscarriage, currently ([facility]); History of gestational diabetes; Anemia, unspecified typeStart: 06-30-2025 End: 59-02-4070bttllsykvkETK Nicolas AvailableStart: 06-18-2025 End: 32-76-7452Vfibnnzvb Result EncounterMundo Woody NP Work Phone: [facility] External Department UnsolicitedStart: 06-18-2025 End: 52-22-4458Efjanafba Result EncounterMundo Woody NP Work Phone: noms External Department UnsolicitedStart: 06-08-2025 End: 64-09-9620Ktjrfm flowsheetCorey Markus DO Work Phone: [facility] [place] [facility]BGYNStart: 06-08-2025 End: 31-37-0545Imnswo flowsheetCorey Markus DO Work Phone: [facility] OBGYNStart: 06-08-2025 End: 92-70-6539Jkjqcs outpatient visit 15 minutesCorey Markus DO Work Phone: [facility] [place] OBGYNComment on above:Third trimester ([facility]); 33 weeks gestation of ([facility]); Gestational diabetes mellitus (GDM) in third trimester, gestational diabetes method of control unspecified ([facility]); H/O pre-eclampsia in prior , currently ([facility]); H/O miscarriage, currently ([facility])Start: 06-08-2025 End: 28-42-0269zutkdgqczqGAANH FAZIONot AvailableStart: 05-21-2025 End: 03-60-2782Tmthqbguq Result EncounterMundo Woody NP Work Phone: noms External Department UnsolicitedStart: 05-21-2025 End: 22-94-1869Wywqqmdng Result EncounterMundo Woody NP Work Phone: noms External Department UnsolicitedStart: 05-20-2025 End: 42-58-0593Ufgijo outpatient visit 15 minutesMundo Woody NP Work Phone: [facility] [place] OBGYNComment on above:Diarrhea, unspecified type (Primary Dx); Third trimester ([facility]); 31 weeks gestation of ([facility]); Nausea and vomiting in ([facility])Start: 05-20-2025 End: 40-50-1603dfzojqxcdoHVSYNTUJ EBERLYNot AvailableStart: 05-08-2025 End: 01-15-1739Hcepqrgaw Result EncounterMundo Woody DIRECTOR OF WOMEN'S SERVICES Work Phone: [facility] External Department UnsolicitedStart: 05-08-2025 End: 29-28-3645Bwxatuxbh Result EncounterMundo Woody DIRECTOR OF WOMEN'S SERVICES Work Phone: [facility] External Department UnsolicitedStart: 05-06-2025 End: 17-25-3212Zyaquj flowsheetCorey Markus DO Work Phone: [facility]o OBGYNStart: 05-06-2025 End: 23-98-4924Ccpuyj flowsheetCorey Markus DO Work Phone: [facility] [place] [facility]BGYNStart: 05-06-2025 End: 54-14-8690Ouemrb outpatient visit 15 minutesCorey Markus DO Work Phone: N[facility] Alvaro OBGYNComment on above:Third trimester ([facility]); 29 weeks gestation of ([facility]); size inconsistent with dates ([facility]); Low iron; Dizziness; NauseaStart: 05-06-2025 End: 29-61-4735gnokunlotxFPEZD FAZIONot AvailableStart: 04-09-2025 End: 17-13-8555Teerun Vida UREÑA Work Phone: [facility] BCP OBStart: 04-09-2025 End: 35-02-3466Jjgact flowsAlireza UREÑA Work Phone: [facility] BCP OBStart: 04-09-2025 End: 25-01-8988Likykr outpatient visit 15 minutesJdoy UREÑA Work Phone: NOMS BCP OBComment on above:Second trimester ([facility]); 25 weeks gestation of ([facility])Start: 04-09-2025 End: 60-72-7893pnarxcrjwfBSL RAMEYNot AvailableStart: 04-01-2025 End: 59-25-5431shrqrmjhbgCPGGY FAZIONot AvailableStart: 03-11-2025 End: 84-67-9069Hmwvay flowsheetCorey Markus DO Work Phone: noms BCP OBStart: 03-11-2025 End: 69-76-3815Ptddug flowsheetCorey Markus DO Work Phone: noms BCP OBStart: 03-11-2025 End: 31-34-5320Ptyanpwoh Result EncounterCorey Markus DO Work Phone: noms External Department UnsolicitedStart: 03-11-2025 End: 68-89-0324Ioseeofh Result EncounterCorey Markus DO Work Phone: noms External Department UnsolicitedStart: 03-11-2025 End: 42-81-1546swdwywilvyPRWTM FAZIONot AvailableStart: 03-11-2025 End: 96-26-3052Vbdbkij encounter procedureCorey Markus DO Work Phone: noms HealthcareStart: 03-11-2025 End: 27-08-7533Wlnzzhpo preventive med est patient 18-39 yrsCorey Marksu DO Work Phone: [facility] OBComment on above:Screening, , for anatomic survey ([facility]); Well woman exam with routine gynecological exam; Exposure to STD; Vaginal discharge; 21 weeks gestation of ([facility]); Second trimester ([facility]); Nausea and vomiting, unspecified vomiting typeStart: 01-19-2025 End: 90-59-7353Hqutub outpatient visit 15 minutesCorey Markus DO Work Phone: noms [facility] OBComment on above:History of gestational diabetes (Primary Dx); Second trimester ; 13 weeks gestation of ; Urinary tract infection without hematuria, site unspecified; Diabetes mellitus screeningStart: 01-19-2025 End: 39-88-4497deukfzbbwiLEETU FAZIONot AvailableStart: 01-07-2025 End: 74-72-3670Toiaphruk Result EncounterCorey Markus DO Work Phone: [facility] External Department UnsolicitedStart: 01-07-2025 End: 81-24-8354Nqzfaciks Result EncounterCorey Markus DO Work Phone: [facility] External Department UnsolicitedStart: 01-05-2025 End: 43-81-2434Qvlvqaofq department patient visitALEXA JAE LOMASProvidence Hospitalca [facility] Centertart: 01-01-2025 End: 55-48-2587Ycqejv outpatient visit 5 minutesNoms Bcp Ob Markus NurseNOMS BCP OBComment on above:GA: 19p3jJmtka: 01-01-2025 End: 38-78-2040lgelusnwkqZAMAF FAZIONot AvailableStart: 98-24-2946Yzj-patient / Non-visitPHYSICIAN NO [facility] Physician [facility] Med OutPt Work Phone: Start: 10-17-2024 End: 67-02-3431Hcazeodvbd and management of inpatientPHYSICIAN NO [facility] Work Phone: Start: 75-06-5752Yhm-patient / Non-visitRochelle Alvarado MD Work Phone: [facility] Med OutPt Work Phone: Start: 10-15-2024 End: 79-49-3708Apeduygzkd and management of inpatientRochelle Alvarado MD Work Phone: [facility] Work Phone: Start: 10-15-2024 End: 32-33-1017Apygntswi department patient visitAstrit H marcTriHealth Start: 89-06-3800Tqoiquxjyh RecurringRochelle Alvarado MD Work Phone: [facility]- CredibleStart: 13-04-8984pfuxfpbhimUonesns M HoyFacility:[facility] Start: 11-26-2023 End: 98-33-3149daeqewxtaeMAYVIH RICKERMerckelvin Felix HospitalStart: 11-05-2023 End: 27-94-3059yrpvftxtvnUdnu Keya SchwabFacility:[facility] Healthtart: 10-30-2023 Clinisync Result EncounterCorey Markus DO Work Phone: NOKV External Department UnsolicitedStart: 10-30-2023 Clinisync Result EncounterCorey Markus DO Work Phone: NOUW External Department UnsolicitedStart: 10-29-2023 End: 24-06-2224jfalectfqdTT Rochelle Alvarado Work Phone: [facility] Work Phone: Start: 10-29-2023 End: 72-30-0448Nirosxdg ReferredMD Rochelle Alvarado Work Phone: [facility]-LAB Path Spec [place] HospStart: 12-21-2022 End: 38-52-2264nnshmzcokvJIGEAQ BASHIR .Facility:Y1Iaqxj: 11-29-2022 End: 76-61-7744iwowwtgarvTR RODO Dickerson NADERERFacility:V6Bxcds: 07-72-6323rkiadfvnvs HEALTH SERVICES FAMILYFacility:L3Qieii: 10-11-2022 End: 51-79-2548taxoamkgyvXE CHRISTINE JOSEPHERFacility:Q6Frear: 09-12-2022 End: 89-87-6284nigsnqjcocHE YOUSIF MARKUS .Facility:G7Vsgvb: 63-34-5125Yqfrbdzxe for preprocedural laboratory examinationDR YOUSIF MARKUS .[facility] Start: 08-18-2022 End: 84-77-9732cjahpgqnimIC YOUSIF MARKUS .Facility:C7Yxqqf: 08-16-2022 End: 01-73-7358slsldpbzjpSJ YOUSIF MARKUS .Facility:I1Kgqhs: 08-16-2022 End: 59-62-6087Ifjxfzzzi for preprocedural laboratory examinationDR YOUSIF MARKUS .Facility:L6Opyao: 08-14-2022 End: 27-42-8361tpzffnkdfsTCOOAH SERVICES FAMILYFacility:I3Upxtd: 07-27-2022 End: 92-22-2766clxctfkkktTM YOUSIF APARICIO .Facility:Y9Bpise: 07-09-2022 End: 14-85-8057ctbrzbipzcEM ELISEO HARDINGFacility:V5Kdmro: 12-12-2021 Telephone Niels Suazo MD Work Phone: Hematology/OncologyComment on above:Lab OrdersStart: 65-71-5991Dqhuq abstractingKing Suazo MD Work Phone: Hematology/OncologyStart: 04-26-2020 End: 89-03-8727Xyuaikufsw hospital visit by physicianRochelle Espino Laboratory Start: 03-16-2020 End: 75-31-7659Hrcxlegur department patient visitMiami Susie Cornell [facility]: 11-20-2019 End: 37-77-8986Pejjrsszpu hospital visit by physicianRochelle Espino Laboratory Comment on above:History of miscarriage, currently ; Amenorrhea; Positive urine test; Encounter for supervision of normal in first trimester, unspecified ; Spotting in early pregnancyStart: 06-19-2019 End: 32-22-0735Hfnmbtnlgk hospital visit by physicianRochelle Espino Laboratory Comment on above:Amenorrhea; Positive urine test; Encounter for supervision of normal in first trimester, unspecified ; Spotting in early pregnancyStart: 05-09-2019 End: 43-53-3066Vckyqsduac hospital visit by physicianRochelle Espino Laboratory Start: 11-05-2017 End: 10-09-7281Wkjbbnshwf and management of inpatientSANDEEP [facility] Procedures DateProcedureProcedure DetailPerforming ClinicianStart: 30-76-7986Lgtuq dip stick/tablet rgnt non-auto w/o micrscpCorekelvin Aparicio DO Work Phone: Start: 76-38-0337Bcouh dip stick/tablet rgnt non-auto w/o micrscpAcatherine UREÑA Work Phone: Start: 60-82-1885ZNN CBC WITH AUTO DIFFMundo Woody DIRECTOR OF WOMEN'S SERVICES Work Phone: Start: 77-09-2971Wjsdh dip stick/tablet rgnt non-auto w/o micrscpCorey Markus DO Work Phone: Start: 17-01-9428XKV + PARASITE EXAMMundo Woody DIRECTOR OF WOMEN'S SERVICES Work Phone: Start: 72-55-5024Uheap dip stick/tablet rgnt non-auto w/o micrscpKristina Bong DIRECTOR OF WOMEN'S SERVICES Work Phone: Start: 50-49-3368POBTRKF 1 HOURKrgonzalez Woody DIRECTOR OF WOMEN'S SERVICES Work Phone: Start: 28-27-0397Fuwtm dip stick/tablet rgnt non-auto w/o micrscpCorey Markus DO Work Phone: Start: 96-02-3695Xzuaa dip stick/tablet rgnt non-auto w/o micrscpAmy Lamin UREÑA Work Phone: Start: 15-68-7046ROCPYERJA VAGINITIS (HTRX)Yousif Markus DO Work Phone: Start: 30-09-5402Dsvyk dip stick/tablet rgnt non-auto w/o micrscpCorey Markus DO Work Phone: Start: 65-00-3990TVE,APTIMA HPV,AGE GDLNCorey Markus DO Work Phone: Start: 51-40-9444Vewjzkyiata observation [Identifier] in Cervix by Cyto stainCorey Markus DO Work Phone: Start: 93-13-3034Cbtvw dip stick/tablet rgnt non-auto w/o micrscpCorey Markus DO Work Phone: Start: 78-84-2504EYO TESTCorey Markus DO Work Phone: Start: 78-11-4060Jjfaa dip stick/tablet rgnt non-auto w/o micrscpCorey Markus DO Work Phone: Start: 71-66-8678ZMC of headRochelle Alvarado MD Work Phone: Start: 93-30-9378Qkeejbtfpic Panel (PCR)Rochelle Alvarado MD Work Phone: Start: 93-09-1844MBBZ CBC WITH PLATELET NO DIFFERENTIALCorey Markus DO Work Phone: Start: 39-69-3248Tpasy hepatitis panelErnest Pepper Work Phone: Start: 96-70-7092Xwxukxjk hiv-1&hiv-2 single result Anthony Pabon Work Phone: Start: 90-48-1957Xyfih count complete automatedErnest Pepper Work Phone: Start: 60-08-9639Qgmrritrpevyj metabolic panelErnest Pepper Work Phone: Start: 45-70-9415Ngbdylnrkhez chorionic qualitative Anthony Pabon Work Phone: Start: 41-08-4933Jpajszrdql microscopic onlyErnest Pepper Work Phone: Start: 31-73-1849Ztzep dip stick/tablet rgnt auto w/o microscopyErnest Pepper Work Phone: Start: 25-57-1004Piavsbxk screenDouglas HoyStart: 18-47-2676Fgdemgqn hiv-1&hiv-2 single resultKathleen E Pool Work Phone: Start: 93-08-4922Gksdytxha c antibodyKathleen E Pool Work Phone: Start: 00-71-7318Vjdlmdhkw panelKathleen E Pool Work Phone: Start: 90-73-6734Qhwtq typing serologic aboKathleen E Pool Work Phone: Start: 89-33-5967Jpufkrqefnkh chorionic quantitative Georgette E Pool Work Phone: Start: 63-96-1357Zhza screen, qualitate/multiKathleen E Pool Work Phone: Start: 05-82-6961Tacverqi screenDouglas HoyStart: 81-95-0342Nqukeiugt panelKathleen E Pool Work Phone: Start: 06-02-9937Lpgnebwsltth chorionic quantitative Georgette E Pool Work Phone: Start: 12-32-3465Qryerwgs hiv-1&hiv-2 single result Georgette E Pool Work Phone: Start: 07-87-5017Sowsi typing serologic aboKathleen E Pool Work Phone: Start: 08-62-7498Fhth screen, qualitate/multiKathleen E Pool Work Phone: Start: 07-46-0467Afbmnrklp c antibodyKathleen E Pool Work Phone: Start: 39-59-3113Iemvd hepatitis panelDawn R [employer] Work Phone: Start: 95-60-6244Dncqwekkodskh metabolic panelDawn R Destiny Work Phone: Start: 10-76-0131WQZBBVDYT PATIENTSANDEEP GUPTAStart: 50-12-5512ETCOU DRUG SCREENSANDEEP GUPTAStart: 80-49-9549JKQBSYE COMMUNICATION ANGELO DENISPTAStart: 25-92-1337Dhpuh panelSANDEEP GUPTAStart: 70-04-6598VSUF GENERALSANDEEP GUPTAStart: 46-33-6813QBRK CODESANDEEP GUPTAStart: 29-87-2697OY CONSULT TO HISTORY AND PHYSICALSANDEEP DENISPTAStart: 16-88-1563XYMYWEUEECVTH NURSING CARE ORDER (SPECIFY)ANGELO BARRIOSPTAStart: 58-44-3870LQZ UNIT PRIVILEGES ANGELO BARRIOSPTAStart: 13-10-2380WETYKMG STATUS (DIRECT)ANGELO SPICER Plan of Treatment DateCare ActivityDetailAuthorStart: 34-85-7163Chyahkmpq for malignant neoplasm of cervixNOMS HealthcareStart: 07-07-2025 End: 97-86-5978Apypgza encounter procedureNOMS [place] OBGYNComment on above: ArrivedStart: 06-30-2025 End: 49-30-0879NFIUTTF, GROUP B STREP WITH SUSCEPTIBLITYCULTURE, GROUP B STREP WITH SUSCEPTIBLITY Lab Routine Third trimester ([facility]) Expected: 06/30/2025, Expires: 06/30/2026[facility] Work Phone: comment on above:Expected: 06/30/2025, Expires: 06/30/2026Start: 06-23-2025 End: 82-11-1032Bmhurqy encounter exyisxeha85/07/2025 3:00 PM EDT Routine [facility] [address] [place], [id number] Mundo Woody, TELMA [address] [place] [address] [facility] [place] OBGYNStart: 06-23-2025 End: 52-79-7702Hllffoatybig / ancillary services goffovtlyb40/07/2025 2:30 PM EDT Ancillary Procedure [facility] [address] [place] [id number] [facility] [place] OBGYNStart: 06-08-2025 End: 10-57-3869Dtttfua encounter qhrabzrsj00/22/2025 11:10 AM EDT Routine [facility] [address] [place] [phone] Yousif Aparicio DO [address] [place] [address] ArrivedNOMS Alvaro OBGYNComment on above:ArrivedStart: 06-03-2025 End: 37-49-4606Pwmvfnk encounter ogrmjdlbv53/17/2025 11:30 AM EDT Routine [facility] Alvaro OBGYOleksandr [address] [place] [address] [place] [address] Yousif Aparicio DO [address] [facility] [address] [place], [place] [id number] [facility] [place] OBGYNStart: 05-20-2025 End: 51-11-6465Mhz and parasite screenOva and parasite screen Microbiology Routine Diarrhea, unspecified type Expected: 05/20/2025 (Approximate), Expires: 05/20/2026NOMS HealthcareComment on above:Expected: 05/20/2025 (Approximate), Expires: 05/20/2026Start: 05-20-2025 End: 39-96-5817Axbpx cultureStool culture Microbiology Routine Diarrhea, unspecified type Expected: 05/20/2025 (Approximate), Expires: 05/20/2026[facility] Work Phone: comment on above:Expected: 05/20/2025 (Approximate), Expires: 05/20/2026Start: 05-20-2025 End: 03-61-2589Cwbhlwu encounter yfkijeefy60/03/2025 9:50 AM EDT Routine [facility] [address] [place] [address] [address] [place], [id number] Mundo Woody, TELMA [address] [facility] [place] [phone] [facility] OBGYNStart: 05-20-2025 End: 98-60-4839Tyeaprsaqiri / ancillary services xiprxghumy46/03/2025 9:30 AM EDT Ancillary Procedure [facility] [address] [place] [address] [place] [address] [facility] [place] [facility]BGYNStart: 08-00-1203Csgzygouv vaccinationInfluenza Vaccine (#1)[facility]S HealthcareStart: 05-06-2025 End: 64-73-8551Ihpejfydyof [Mass/volume] in Serum or PlasmaTransferrin Lab Routine Low iron Dizziness Expected: 05/06/2025 (Approximate), Expires: 05/06/2026[facility] Work Phone: comment on above:Expected: 05/06/2025 (Approximate), Expires: 05/06/2026Start: 05-06-2025 End: 91-52-8658XI for pregnancyUS OB follow up transabdominal approach Imaging Routine size inconsistent with dates ([facility]) Expected: 05/06/2025, Expires: 09/05/2025NOMI HealthcareComment on above:Expected: 05/06/2025, Expires: 09/05/2025Start: 05-06-2025 End: 50-26-0284Mbcylfk encounter vykyfjxri12/20/2025 11:30 AM EDT Office Visit [facility] [place] [facility] [address] [place] [phone] Yousif Aparicio DO [address] [facility] [place] [address] ArrivedCHARBEL John OBGYNComment on above:ArrivedStart: 04-09-2025 End: 49-93-8430Urogttz encounter pcgaiioxp13/24/2025 9:50 AM EDT Routine [facility] [address] [place] [address] Jody Kimble PA [address] [place] [address] ArrivedCHARBEL BCP OBComment on above: ArrivedStart: 04-08-2025 End: 81-76-9240Rojcxzc encounter qmtvtuoiw81/23/2025 11:20 AM EDT Routine [facility] [address] [place] [phone] Jody Kimble, PA [address] [place], [place] [id number] [facility] BCP OBStart: 03-25-2025 End: 69-80-1931Rrxzbvcxgfrm / ancillary services awakgzrviw42/09/2025 11:00 AM EDT Ancillary Procedure [address] [place] [place] [phone] [facility] OBStart: 03-11-2025 End: 26-05-5798Mfofh fetoprotein, maternalAlpha fetoprotein, maternal Lab Routine Screening, , for anatomic survey ([facility]) 21 weeks gestation of ([facility]) Second trimester ([facility]) Expected: 03/11/2025 (Approximate), Expires: 04/10/2025NOMI HealthcareComment on above: Expected: 03/11/2025 (Approximate), Expires: 04/10/2025Start: 03-11-2025 End: 94-21-3260MN for pregnancyUS OB 14+ weeks anatomy scan Imaging Routine Screening, , for anatomic survey ([facility]) Expected: 03/11/2025, Expires: 06/11/2025NOMI HealthcareComment on above:Expected: 03/11/2025, Expires: 06/11/2025Start: 02-16-2025 End: 18-18-3575Tjbjtfr encounter kncatyrpq10/02/2025 3:30 PM EDT Routine [address] [place] [address] Jody Kimble PA [address] [place] [address] [address] [place], [place] [id number] [facility] OBStart: 01-19-2025 End: 81-06-0046MXN panel - Blood by Automated countCBC Lab Routine Diabetes mellitus screening Expected: 01/19/2025 (Approximate), Expires: 01/19/2026[facility] Work Phone: comment on above:Expected: 01/19/2025 (Approximate), Expires: 01/19/2026Start: 01-19-2025 End: 99-45-0165Wbxyshludhf of glucose 1 hour after glucose challenge for glucose tolerance testGlucose tolerance, 1 hour Lab Routine Diabetes mellitus screening Expected: 01/19/2025 (Approximate), Expires: 01/19/2026[facility] HealthcareComment on above:Expected: 01/19/2025 (Approximate), Expires: 01/19/2026Start: 01-19-2025 End: 44-94-6688Jenlsoz encounter jgagfyqiy80/05/2025 2:00 PM EDT Routine [facility] [address] [place] [id number] MarkusYousif benton, DO [address] [place] [address] [facility] OBStart: 01-01-2025 End: 96-59-1646VPB/RhABO/Rh Lab Routine Missed menses , unspecified gestational age Expected: 01/01/2025 (Approximate), Expires: 01/01/2026[facility] HealthcareComment on above:Expected: 01/01/2025 (Approximate), Expires: 01/01/2026Start: 01-01-2025 End: 39-29-4987Tpsff type and Indirect antibody screen panel - BloodType and screen Lab Routine Missed menses , unspecified gestational age Expected: 01/01/2025 (Approximate), Expires: 01/01/2026[facility] Work Phone: comment on above:Expected: 01/01/2025 (Approximate), Expires: 01/01/2026Start: 01-01-2025 End: 67-10-2083Stlpd of abuse panel - Urine by Screen methodRapid drug screen, urine Lab Routine , unspecified gestational age Encounter for supervision of normal first in first trimester Expected: 01/01/2025 (Approximate), Expires: 01/01/2026[facility] HealthcareComment on above:Expected: 01/01/2025 (Approximate), Expires: 01/01/2026Start: 10-08-2809LulycujvdFulton County Health Centertart: 15-98-9391Oeugpafp admissionFulton County Health Centertart: 97-03-5607HwwwbjotcFulton County Health Centertart: 10-17-2024 [facility] CenterStart: 89-98-0136MgyjuptxhAultman Alliance Community Hospital CenterStart: 25-87-4161VdntqnhzhAultman Alliance Community Hospital CenterStart: 10-16-2024 Referral to Social ServicesFulton County Health Centertart: 10-15-2024 Referral to psychiatristFulton County Health Centertart: 10-15-2024 Referral to neurologistAultman Alliance Community Hospital CenterStart: 10-15-2024 Hospital admissionAultman Alliance Community Hospital CenterStart: 58-52-3199Kyqhfiyrs for malignant neoplasm of cervixHPV/CotestNOMS HealthcareStart: 12-12-2021 End: 91-42-8884PWT W Auto Differential panel - BloodCBC + DIFF Lab Routine Iron deficiency anemia, unspecified iron deficiency anemia type Expected: 12/12/2021, Expires: 02/11/2022[facility] Work Phone: Comment on above:Expected: 12/12/2021, Expires: 02/11/2022tart: 30-46-4102Uabvpljiy vaccinationINFLUENZA (#1)[facility] Start: 00-56-3822Llfpckox cancer screenCervical cancer [facility] [place]Comment on above:Postponed from 2015 (Not Indicated)Start: 06-26-2020 Screening for malignant neoplasm of cervixCervical cancer [facility], MTComment on above:Postponed from 2015 (Not Indicated)Start: 66-43-7967Jwdgqlopj vaccinationFlu vaccine (#1)[facility], [place]Start: 11-21-2019 End: 83-45-4989Wqzwhioen Cyuhcpwsq61/06/2020 Ancillary Procedure Obstetrics and GynecologyCITY [facility] & GYNECOLOGYStart: 06-26-2019 End: 82-58-6123Xgbuele Csasykdv95/10/2019 Routine Obstetrics and Gynecology Georgette Leung APRN - CNM [address] [place] [address] [phone] [facility] OB/GYNStart: 09-01-2019 Influenza vaccinationFlu vaccine (#1)[facility]: 2015 Cervical cancer screenCervical cancer screenWyandot Memorial Hospital: 84-74-8837VCZ TESTINGPAP TESTINGUpper Valley Medical Centertart: 18-69-3747JDnF/Tdap/Td vaccine (1 - Tdap)DTaP/Tdap/Td vaccine (1 - Tdap)[facility]art: 17-81-0709Kovfq microalbumin profileDTAP,TDAP,TD (1 - Tdap)[facility] Start: 64-72-7768PVDCUBPIH C SCREENINGHEPATITIS C SCREENINGPike Community Hospital Start: 53-10-3554FBP SCREENINGHIV SCREENINGUpper Valley Medical Centertart: 95-67-1256JLH vaccine (1 - Female 3-dose series)HPV vaccine (1 - Female 3-dose series)[facility] Hospitalart: 71-13-9666Oewrwdqno Vaccine (1 of 2 - 13+ 2-dose series) Varicella Vaccine (1 of 2 - 13+ 2-dose series)[facility]: 99-57-2413Xzniy depression screening assessmentDEPRESSION SCREENINGUpper Valley Medical Centertart: 02-37-9193CKfC/Tdap/Td vaccine (1 - Tdap)DTaP/Tdap/Td vaccine (1 - Tdap)[facility]: 45-59-8894UNC vaccine (1 - 2-dose series)HPV vaccine (1 - 2-dose series)[facility]: 69-77-8605DMF vaccine (1 - Female 2-dose series)HPV vaccine (1 - Female 2-dose series)[place] Start: 72-35-1509Uelnqsyeuqpt 0-64 years Vaccine (1 of 1 - PPSV23)Pneumococcal 0-64 years Vaccine (1 of 1 - PPSV23)[facility]: 57-77-6194IVLDG- 19 VACCINE (1)COVID-19 VACCINE (1)[facility]art: 28-87-6059Quwlnojvv vaccine (1 of 2 - 2-dose childhood series)Varicella vaccine (1 of 2 - 2-dose childhood series)[place] End: 47-47-0340Llrhhnxu identified Cx Nom (U)Urine Culture Microbiology Routine Amenorrhea Positive urine test Encounter for supervision of normal in first trimester, unspecified 1 Occurrences starting 11/20/2019 until 11/20/2019[place], [place]Comment [place]:1 Occurrences starting 11/20/2019 until 11/20/2019Bacteria identified Cx Nom (U)[place] End: 53-63-6616Ghdbncao identified Cx Nom (U)Urine Culture Microbiology Routine Amenorrhea Positive urine test Encounter for supervision of normal in first trimester, unspecified 1 Occurrences starting 06/19/2019 until 06/19/2019[place], [place]Comment [place]:1 Occurrences starting 06/19/2019 until 06/19/2019Bacteria identified in Urine by CultureUrine culture Microbiology Routine Missed menses Ordered: 01/01/2025[facility] Comment on above:Ordered: 01/01/2025 End: 11-20-2019C.trachomatis N.gonorrhoeae DNA, UrineC.trachomatis N.gonorrhoeae DNA, Urine Microbiology Routine Amenorrhea Positive urine test Encounter for supervision of normal in first trimester, unspecified 1 Occurrences starting 11/20/2019 until 11/20/2019[place] Comment on above:1 Occurrences starting 11/20/2019 until 11/20/2019C.trachomatis N.gonorrhoeae DNA, [place]rine[place] End: 06-19-2019C.trachomatis N.gonorrhoeae DNA, UrineC.trachomatis N.gonorrhoeae DNA, Urine Microbiology Routine Amenorrhea Positive urine test Encounter for supervision of normal in first trimester, unspecified 1 Occurrences starting 06/19/2019 until 06/19/2019[place] Comment on above:1 Occurrences starting 06/19/2019 until 06/19/2019CBC W Auto Differential panel - BloodCBC and differential Lab Routine Missed menses , unspecified gestational age Ordered: 01/01/2025[facility] HealthcareComment on above:Ordered: 01/01/2025HLAMYDIA TRACHOMATIS (GENITO/STI)CHLAMYDIA TRACHOMATIS (GENITO/STI) Lab Routine Exposure to STD Ordered: 03/11/2025[facility] HealthcareComment on above:Ordered: 03/11/2025ytology Cervical or vaginal smear or scraping studyPap Smear Pathology and Cytology Routine Well woman exam with routine gynecological exam Ordered: 03/11/2025[facility] HealthcareComment on above: Ordered: 03/11/2025Ferritin [Mass/volume] in Serum or PlasmaFerritin Lab Routine Low iron Dizziness Ordered: 05/06/2025[facility] HealthcareComment on above:Ordered: 05/06/2025Hemoglobin A1c/Hemoglobin.total in BloodHemoglobin A1c Lab Routine Missed menses , unspecified gestational age Ordered: 01/01/2025[facility] HealthcareComment on above:Ordered: 01/01/2025Hepatitis A virus antibody, IgM [facility] B core antibody measurement, IgM [facility] B virus surface Ag [Presence] in Serum or Plasma by ImmunoassayDayton Va Medical CenterHekaiser hayward B virus surface Ag [Presence] in Serum or Plasma by ImmunoassayHekaiser hayward B surface antigen Lab Routine Missed menses , unspecified gestational age Ordered : 01/01/2025[facility] HealthcareComment on above:Ordered: 01/01/2025 End: 83-74-0342Lygvflqxw C RNA, quantitative, PCRHepatitis C RNA, quantitative, PCR Lab Routine Once for 1 Occurrences starting 04/26/2020 until 04/26/2020[facility], KYComnelson on above:Once for 1 Occurrences starting 04/26/2020 until 04/26/2020Hepatitis C RNA, quantitative, PCRHepatitis C RNA, quantitative, PCR Lab Routine 04/26/2020 7:[address] [facility], [place] C virus Ab [Presence] in Serum or Plasma by ImmunoassayHepatitis C antibody Lab Routine Missed menses , unspecified gestational age Ordered: 01/01/2025[facility] HealthcareComment on above:Ordered: 01/01/2025Hepatitis C virus IgG Ab [Presence] in Serum or Plasma by ImmunoassayDayton Va Medical CenterHIV 1+2 Ab+HIV1 p24 Ag [Presence] in Serum or Plasma by [facility] End: 80-04-2748MPP ScreenHIV Screen Lab Routine Once for 1 Occurrences starting 05/09/2019 until 05/09/2019[facility], KYComment on above:Once for 1 Occurrences starting 05/09/2019 until 05/09/2019HIV ScreenHIV Screen Lab Routine 05/09/2019 2:[address] [facility], KYHIV-1/HIV-2 antigen/antibody combination immunoassayHIV-1 and HIV-2 antibodies Lab Routine Missed menses , unspecified gestational age Ordered: 01/01/2025[facility] HealthcareComment on above:Ordered: 01/01/2025Homogenous nuclear Ab pattern [Titer] in Serum [facility] Medical CenterHuwarrensburg papilloma virus DNA [Presence] in Unspecified specimen by Probe with amplificationHPV DNA probe, amplified Microbiology Routine Well woman exam with routine gynecological exam Ordered: 03/11/2025[facility] HealthcareComment on above:Ordered: 03/11/2025Neisseria gonorrhoeae DNA [Presence] in Unspecified specimen by ELMO with probe detection Neisseria gonorrhea DNA probe, direct Lab Routine Exposure to STD Ordered: 03/11/2025[facility] HealthcareComment on above:Ordered: 03/11/2025Nuclear Ab [Titer] in SerumDayton Va Medical CenterPatient EducationKnow your [facility] Work Phone: Patient referralAultman Alliance [facility]tr Work Phone: PRENATAL PROFILE IPRENATAL PROFILE I Lab Routine Amenorrhea Positive urine test Encounter for supervision of normal in first trimester, unspecified 11/20/2019 12:26 PM [facility], KYReagin Ab [Presence] in Serum by RPRFProMedica Fostoria Community HospitalReagin Ab [Presence] in Serum by RPRRPR Lab Routine Missed menses , unspecified gestational age Ordered: 01/01/2025[facility] HealthcareComment on above:Ordered: 01/01/2025Rubella antibody, IgGRubella antibody, IgG Lab Routine Missed menses , unspecified gestational age Ordered: 01/01/2025 [facility] HealthcareComment on above:Ordered: 01/01/2025SURESWAB(R) ADVANCED VAGINITIS PLUS, TMASURESWAB(R) ADVANCED VAGINITIS PLUS, TMA Pathology and Cytology Routine Vaginal discharge Ordered: 03/11/2025[facility] Work Phone: comment on above:Ordered: [facility] Payers DatePayer CategoryPayerPolicy [id number] 2023[facility] [place] [id number] 2023-Present [address] [place] [id number] 2023Medicaid (Managed Care)[facility] MEDICAID [id number] 2021[place]icaid[place] MED[place] MED[place]ID [id number] 2020- Present [phone] [address] [place] [address] [id number] [facility] HEALTH PLAN [facility] HEALTH PLAN xxxxxxxxxxxx 2016-Present [phone] [place] [address] [id number] 2.16.840.1.547551.3.57[id number] 2.16.840.1.117185.3.57[id number] 2.16.840.1.082619.3.579.2.53546-52-1761Jghpcda2000239 2.16840.1.438075.3.579.2.50903-64-4672Wduhlxn0162880 2.16840.1.428867.3.579.2.95170-79-0883Wlsxnxn1154668 2.16840.1.832938.3.579.2.70195-46-4020Vdebvbo3525989 2.16840.1.556146.3.579.2.81253-62-0137Toziztu7057800 2.16840.1.167599.3.579.2.96082-91-4052Ordetcc1142340 2.16840.1.223855.3.579.2.55295-03-9816Htlakmk4473213 2.16840.1.481310.3.579.2.14384-13-3987Dlokprq7243401 2.16840.1.038934.3.579.2.29982-50-5199Kgtzatp75843464 2.16840.1.760796.3.579.2.85822-45-6544Qncosid05927514 2.16840.1.869539.3.579.2.17760-02-6356Qpxsfgs57609175 2.16840.1.831907.3.579.2.49022-14-3949Ddirokf00096147 2.16840.1.294389.3.579.2.52244-17-7985Iqewxzs30704801 2.16840.1.502744.3.579.2.98115-82-0596Uimfigo31603348 2.16.840.1.005162.3.579.2.84216-20-4334Urmbpmk978814928 2.16.840.1.722987.3.579.2.081041-28-1472Itukvyf01305527 2.16840.1.506635.3.579.2.420406-50-5193Xqhxuam99052961 2.16840.1.119775.3.579.2.768076-39-9019Hjbyajb25086803 2.840.1.637914.3.579.2.472389-79-6037Fvwmygw75340147 2.840.1.437171.3.579.2.293068-78-5305Sqkvtvp35188633 2.840.1.819767.3.579.2.429834-60-5813Vffuycm85992555 2.840.1.954985.3.579.2.532111-55-3675Jlrwnpw80291132 2.16840.1.686778.3.579.2.249845-53-9531Bvhdcmm38498085 2.840.1.394858.3.579.2.894060-35-0570Yuiybdt30434665 2.16840.1.586315.3.579.2.306109-74-2276Wqjifjm2026301 2.840.1.637164.3.579.2.182288-87-8179Ieficij7413609 2.16840.1.301362.3.579.2.238204-59-8269Dbffmcy6135283 2.16840.1.830732.3.579.2.884355-58-6128Nccvvfv120830731536QkbuyzjPdcod3 (STD) T5802 91597 01 s575328o-444f-8d68-1189-022936fi8k45Ugvmroj93999268 2.16.840.1.524141.3.579.2.199Kahzjvb26730520 2.16.840.1.229742.3.579.2.531 Jmxrfqt97698863 2.16.840.1.592593.3.579.2.531 Social History DateTypeDetailFacilityStart: 11-05-2017 End: 22-63-0722Xucqbin smoking status NHISNever smokerUpper Valley Medical Centertart: 11-05-2017 End: 24-49-5531Qihpkvf intakeNoCoshocton Regional Medical Centertart: 99-70-5509Zmc Assigned At BirthNot on [facility] Hospitalart: 06-19-2019 End: 29-45-4467Onmnvfy smoking status NHISCurrent every day smoker[place], [place]Stconception junction: 11-20-2019 End: 06-61-2467Mfwngmghlu smoked current (pack per day) - ReportedSPANISH FORK [facility]OSPITAL HealthcareStart: 50-74-8140Nrlvzag intakeCurrent non-drinker of alcohol (finding)[facility]: 35-31-0919CxigpedlHbxwfWyandot Memorial Hospital: 11-20-2019 End: 87-67-9534Kmbuqpc use and exposureNever [facility]: 10-28-2021 End: 08-84-0637Mdzryvr intakeEx-drinker (finding)[facility]ertart: 10-09-2023 End: 43-02-0821Dtiqpaa intakeLifetime non-drinker (finding)[facility] HospitalStart: 23-58-8156Kujlzgf smoking status NHISEx-smoker (finding)[facility]: 94-48-6952Tzr Assigned At BirthL[facility] Hospital - WestToK[facility] Comment on above:deniesTobacco smoking statusNo Smoking Status EnteredGerman Hospital Start: 10-16-2024 End: 53-23-9304Joxbqoz smoking status NHISUnknown if ever smokedFulton County Health Centertart: 10-17-2024 End: 13-74-2095PiuXlbwtq (finding)[facility]ertart: 91-67-9690QjtInnqkwBEGX HealthcareNEGATED: Highlighted rowDayton Va Medical Center Goals DatePatient GoalDesired Activity/State Functional Status JtxpEomjlurjdoEsmuhkDaznadij69-25-7280Rlpfchd Health Questionnaire 2 item (PHQ- 2) [Reported][facility] HospitalEaeygbmprs08-64-8279Zwwiltaptk statusPatient at [facility] Work Phone: [phone]) 541-659201023048-57-9959Vckokjtjui statusPatient at [facility] Work Phone: 1(710) 546-835001998550-52-2342Nqgzgnkzwq StatusN/PATRICIACleveland [facility] Mental Status VyuhJwwzanmfgzKjgnlyBhhrxgfb80-54-4511Ltxunfzpa functionCognitive Status [facility] at [facility] Work Phone: [phone]xdnvtc functionCognitive Status Patient at [facility] Work Phone: Clinical Notes 11-08-2021 to 07-07-2025 Note Date & NspxZxnnBkghtntu34-26-6575 History of Present illness Narrative* Rajani Monroe, ALLYSON - 07/07/2025 2:20 PM EDT Reason for Appointment: Patient ID: Noe Duran [...] 06/30/2025 H/O pre-eclampsia in prior , currently ([facility]) 06/30/2025 Anemia 06/30/2025 Resolved Ambulatory Problems Diagnosis Date Noted No Resolved Ambulatory Problems Past Medical History: Diagnosis Date Anxiety Bipolar disorder ([facility]) Depression Fibromyalgia Gestational diabetes ([facility]) Insomnia Irritable bowel syndrome with constipation Opioid abuse ([facility]) Tobacco user HISTORY PAST MEDICAL HISTORY SOCIAL HISTORY Past Medical History: Diagnosis Date Anxiety Bipolar disorder ([facility]) Depression Fibromyalgia Gestational diabetes ([facility]) Insomnia Irritable bowel syndrome with constipation Opioid abuse ([facility]) Tobacco user Social History Tobacco Use Smoking [...] nursing note reviewed. Exam conducted with a evaluation analyst present. Vitals: There is no height or weight on file to calculate BMI. BP: 128/68 Patient's last menstrual period was 10/21/2024 (exact date). Assessment/Plan ICD-10-CM 1. Third trimester ([facility]) Z34.93 2. 37 weeks gestation of ([facility]) Z3A.37 POCT urinalysis dipstick manually resulted [...] on 07/15/25- inductionpaperwork signed and faxed to [employer]. Orders Placed This Encounter Procedures POCT urinalysis dipstick manually resulted Follow Up: Patient is to return to office in 1 week for routine OB appointment. Documented by Rajani Monroe LPN on behalf of: Yousif Aparicio DO documented in this encounterMercy McCune-Brooks HospitalEuzukzbvcw63-64-7266 History of Present illness Narrative* ADELITA Lim - 06/30/2025 1:50 PM EDT Reason for Appointment: Patient ID: Noe Duran [...] 06/30/2025 H/O pre-eclampsia in prior , currently ([facility]) 06/30/2025 Anemia 06/30/2025 Resolved Ambulatory Problems Diagnosis Date Noted No Resolved Ambulatory Problems Past Medical History: Diagnosis Date Anxiety Bipolar disorder ([facility]) Depression Fibromyalgia Gestational diabetes ([facility]) Insomnia Irritable bowel syndrome with constipation Opioid abuse ([facility]) Tobacco user HISTORY PAST MEDICAL HISTORY SOCIAL [...] nursing note reviewed. Exam conducted with a evaluation analyst present. Vitals: There is no height or weight on file to calculate BMI. BP: 118/74 Patient's last menstrual period was 10/21/2024 (exact date). ASSESSMENT & PLAN ICD-10-CM 1. Third trimester ([facility]) Z34.93 POCT urinalysis dipstick manually resulted CULTURE, GROUP B STREP WITH SUSCEPTIBLITY CULTURE, GROUP B STREP WITH SUSCEPTIBLITY 2. 36 weeks gestation of ([facility]) Z3A.36 3. H/O pre-eclampsia in prior , currently ([facility]) O09.299 4. H/O miscarriage, currently ([facility]) O09.299 5. History of gestational diabetes [...] disorder ([facility]) Depression Fibromyalgia Gestational diabetes ([facility]) Insomnia Irritable bowel syndrome with constipation Opioid abuse ([facility]) Tobacco user [3] No family history on file. [4] Past Surgical History: Procedure Laterality Date DILATION AND CURETTAGE 08/18/2022 PAP SMEAR 08/04/2021 Normal documented in this encounterMercy McCune-Brooks HospitalCxjbzewnsc55-80-3688 History of Present illness Narrative* Shira Solano MA - 06/08/2025 11:10 AM EDT Reason for Appointment: Patient ID: Noe Duran [...] disorder ([facility]) Depression Fibromyalgia Gestational diabetes ([facility]) Insomnia Irritable bowel syndrome with constipation Opioid abuse ([facility]) Tobacco user HISTORY PAST MEDICAL HISTORY SOCIAL HISTORY Past Medical History: Diagnosis Date Anxiety Bipolar disorder ([facility]) Depression Fibromyalgia Gestational diabetes ([facility]) Insomnia Irritable bowel syndrome with constipation Opioid abuse ([facility]) Tobacco user Social History Tobacco Use Smoking [...] ASSESSMENT & PLAN ICD-10-CM 1. Third trimester ([facility]) Z34.93 2. 33 weeks gestation of ([facility]) Z3A.33 3. Gestational diabetes mellitus (GDM) in third trimester, gestational diabetes method of control unspecified ([facility]) O24.419 4. H/O pre-eclampsia in prior , currently ([facility]) O09.299 5. H/O miscarriage, currently ([facility]) O09.299 Return OB: Patient presents [...] of: Yousif Aparicio DO documented in this encounterMercy McCune-Brooks HospitalWyadyfvasw65-31-4342 History of Present illness Narrative* Mundo Woody NP - 05/20/2025 9:50 AM EDT Reason for Appointment: Patient ID: Noe Duran [...] disorder ([facility]) Depression Fibromyalgia Gestational diabetes ([facility]) Insomnia Irritable bowel syndrome with constipation Opioid abuse ([facility]) Tobacco user HISTORY PAST MEDICAL HISTORY SOCIAL HISTORY Past Medical History: Diagnosis Date Anxiety Bipolar disorder ([facility]) Depression Fibromyalgia Gestational diabetes ([facility]) Insomnia Irritable bowel syndrome with constipation Opioid abuse ([facility]) Tobacco user Social History Tobacco Use Smoking [...] nursing note reviewed. Exam conducted with a evaluation analyst present. Vitals: There is no height or weight on file to calculate BMI. BP: 112/70 Patient's last menstrual period was 10/21/2024 (exact date). ASSESSMENT & PLAN ICD-10-CM 1. Third trimester ([facility]) Z34.93 POCT urinalysis dipstick manually resulted 2. 31 weeks gestation of ([facility]) Z3A.31 POCT urinalysis dipstick manually [...] patient and iron infusion order sent to [facility]. Orders Placed This Encounter Procedures POCT urinalysis dipstick manually resulted Follow Up: Patient is to return to office in 2 week for routine OB appointment. Documented by Mundo Woody NP on behalf of: Mundo Woody NP documented in this encounterMercy McCune-Brooks HospitalNfmtgbvtwu98-41-1927 History of Present illness Narrative* Rajani Monroe, JEWELRY DEPARTMENT SUPERVISOR - 05/06/2025 11:30 AM EDT Reason for Appointment: Patient ID: Noe Duran [...] Bipolar disorder ([facility]) Depression Fibromyalgia Gestational diabetes ([facility]) Insomnia Irritable bowel syndrome with constipation Opioid abuse ([facility]) Tobacco user HISTORY PAST MEDICAL HISTORY SOCIAL HISTORY Past Medical History: Diagnosis Date Anxiety Bipolar disorder ([facility]) Depression Fibromyalgia Gestational diabetes ([facility]) Insomnia Irritable bowel syndrome with constipation Opioid abuse ([facility]) Tobacco user Social History Tobacco Use [...] nursing note reviewed. Exam conducted with a evaluation analyst present. Vitals: There is no height or weight on file to calculate BMI. BP: Patient's last menstrual period was 10/21/2024 (exact date). ASSESSMENT & PLAN ICD-10-CM 1. Third trimester ([facility]) Z34.93 POCT urinalysis dipstick manually resulted 2. 29 weeks gestation of ([facility]) Z3A.29 3. size inconsistent with dates [facility] [facility]) O26.849 US OB follow up [...] of: Yousif Aparicio DO documented in this encounterMercy McCune-Brooks [id number] History of Present illness Narrative* ADELITA Lim - 04/09/2025 9:50 AM EDT Reason for Appointment: Patient ID: Noe Duran [...] Bipolar disorder (HCC) Depression Fibromyalgia Gestational diabetes ([facility]) Insomnia Irritable bowel syndrome with constipation Opioid abuse ([facility]) Tobacco user HISTORY PAST MEDICAL HISTORY SOCIAL HISTORY Past Medical History: Diagnosis Date Anxiety Bipolar disorder (HCC) Depression Fibromyalgia Gestational diabetes ([facility]) Insomnia Irritable bowel syndrome with constipation Opioid abuse ([facility]) Tobacco user Social History Tobacco Use [...] ASSESSMENT & PLAN ICD-10-CM 1. Second trimester ([facility]) Z34.92 POCT urinalysis dipstick manually resulted 2. 25 weeks gestation of ([facility]) Z3A.25 Return OB: Patient presents today [...] behalf of: ADELITA Lim documented in this encounterMercy McCune-Brooks [id number] History of Present illness Narrative* Rajani Monroe, JEWELRY DEPARTMENT SUPERVISOR - 03/11/2025 10:50 AM EDT Reason for Appointment: Patient ID: Noe Duran [...] disorder ([facility]) Depression Fibromyalgia Gestational diabetes ([facility]) Insomnia Irritable bowel syndrome with constipation Opioid abuse ([facility]) Tobacco user HISTORY PAST MEDICAL HISTORY SOCIAL HISTORY Past Medical History: Diagnosis Date Anxiety Bipolar disorder ([facility]) Depression Fibromyalgia Gestational diabetes ([facility]) Insomnia Irritable bowel syndrome with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 control unspecified ([facility]) H/O pre-eclampsia in prior , currently ([facility]) H/O miscarriage, currently ([facility]) [facility] Diagnosis Third trimester ([facility]) state, incidental 36 weeks gestation of ([facility]) H/O pre-eclampsia in prior , currently ([facility]) H/O miscarriage, currently ([facility]) History of gestational diabetes Personal history of other genital system and obstetric disorders Anemia, unspecified type [facility] Diagnosis Third trimester ([facility]) state, incidental 37 weeks gestation of ([facility]) [facility] Narrative No data available for this section [facility] Discharge instructions No data available for this section [facility] Progress note No data available for this section [facility] Summary Purpose Family History No Family [...] FoundNo Family History Records Found Advance Directives TypeDate RecordedPatient RepresentativeExplanationAdvance Directives and Living WillPower of AttorneyCode StatusDate ActivatedDate InactivatedCommentsFull Code 11/05/2017 6:51 AM11/07/2017 2:59 PM Advance Directive Response Recorded Date/ [...] 15, 2024 9:45pm PTSD (post-traumatic stress disorder) Ja angelicaary 2024 9:45pm Seizure October 15, 2024 9 [...] section and content) DATE CREATED AUTHOR 03/08/2018 [facility] DATE CREATED AUTHOR AUTHOR'S ORGANIZ ATION 04/08/2020 [facility] DATE CREATED AUTHOR AUTHOR'S ORGANIZ ATION 12/13/2021 [facility] DATE CREATED AUTHOR AUTHOR'S ORGANIZ ATION 12/25/2022 [facility] DATE CREATED AUTHOR AUTHOR'S ORGANIZ ATION 11/28/2023 [facility] DATE CREATED AUTHOR AUTHOR'S ORGANIZ ATION 10/17/2024 [facility] DATE CREATED AUTHOR AUTHOR'S ORGANIZ ATION 10/21/2024 [facility] DATE CREATED AUTHOR AUTHOR'S ORGANIZ ATION 12/11/2024 [facility] DATE CREATED AUTHOR AUTHOR'S ORGANIZ ATION 01/05/2025 [facility] DATE CREATED AUTHOR AUTHOR'S ORGANIZ ATION 07/02/2025 [facility] EPIC Source Comments (unrecognize d section and content) In the event this informatio n is protected by the Federal Confidentiality of Alcohol and Drug Abuse Patient Records regulations: The Federal rules restrict any use of the information to criminally investigate or prosecute any alcohol or drug abuse patient.[facility] HospitalIn the event this information is protected by the Federal Confidentiality of Alcohol and Drug Abuse Patient Records regulations: The Federal rules restrict any use of the information to criminally investigate or prosecute any alcohol or drug abuse patient.[facility] Reason for Visit (unrecogniz ed section and content) ReasonCommentsLab OrdersReasonCommentsAmenorrheaReasonCommentsRoutine VisitReasonCommentsRoutine VisitWell Women Visit Care Teams (unrecognized sec tion and content) Team Status: Active Member Role Status Dates PHYSICIAN NO FAMILY Primary Care Provider Active Team Status: Inactive Member Role Status Dates PHYSICIAN NO FAMILY Primary Care Provider Active Start: October 15, 2024 End: October 17, 2024Justen Jaquez ProviderActiveStart: October 15, 2024 End: October 17, 2024Richard Alexander ProviderActiveStart: October 15, 2024 End: October 17, 2024Radha Fine ProviderActiveStart: October 15, 2024 End: October 17Radha Munguia ProviderActiveStart: October 15, 2024 End: October 17, 2024 Team Status: Active Member Role Status Dates PHYSICIAN NO FAMILY Primary Care Provider Active Start: October 16, 2024 Justen Jaquez ProviderActiveStart: October 16, 2024 Radha Alexander ProviderActiveStart: October 16, 2024 Radha Fine ProviderActiveStart: October 16, 2024 Dane Suelaziz , KIKOttending Provider, Other ProviderActiveStart: October 16, 2024 Team Status: Inactive Member Role Status Dates PHYSICIAN NO FAMILY Primary Care Provider Active Start: October 17, 2024 End: October 21bdgunnersagenikole Rip , MDAdmit Provider, Attending ProviderActiveStart: October 17, 2024 End: October 21, 2024 Team Status: Active Member Role Status Dates PHYSICIAN NO FAMILY Primary Care Provider Active Start: October 18, 2024 Danehugo Suelaziz , MDAdmit Provider, Attending Provider, Other Provider ActiveStart: October 18, 2024 Team MemberRelationshipSpecialtyStart [place] [address] [facility] Team Status: Active Member Role Status Dates Rochelle Alvarado MD Primary Care Provider Active Team Status: Inactive Member Role Status Dates Rochelle Alvarado MD Primary Care Provider Active Start: October 29, 2023 End: October 29orekelvin BalbuenaoAttjeremias ProviderActiveStart: October 29, 2023 End: October 29, 2023 Team Status: Active Member Role Status Rafal Alvarado MD Primary Care Provider Active Start: July 21, 2024 Dane Jimenezli KIKOttending ProviderActiveStart: July 21, 2024 Goals (unrecognized section and [...] BE BASED ON THE PRIMARY CLINICAL RECORDS. [facility]. provides no warranty or guarantee of the accuracy or completeness of information in this document.
--- OUTSIDE RECORDS SUMMARY | 2025-07-08 21:35 | XMS_ITS | Clinical Summary ---
Author Organization [employer] tem Address [id number] [address] [place] [address] Care Team Providers Care Lending Activities Supervisor Name Role Phone Prisca Dave ENERGY SCHEDULER-MFTS Primary Care Provider Allergies No known active allergies Medications * This document contains information received from the source organization and may not represent a complete record from that organization. MedicationSigDispense QuantityRefillsLast FilledStart DateEnd DateStatus acetaminophen (TylenoL) 325 mg tablet Take 2 tablets (650 mg total) by mouth every 6 (six) hours as needed for pain. 30 tablet 04/20/2021ctive docusate sodium (COLACE) 100 mg capsule Take 1 capsule (100 mg total) by mouth in the morning and 1 capsule (100 mg total) before bedtime.Active ondansetron ODT (ZOFRAN-ODT) 4 mg disintegrating tablet Dissolve 1 tablet (4 mg total) on tongue every 6 (six) hours as needed for nausea or vomiting.Active gabapentin (NEURONTIN) 400 mg capsule Take 600 mg by mouth 3 (three) times a day.Active PNV no.95/ferrous fum/folic ac ( ORAL) Take by mouth.Active folic acid (FOLVITE) 800 MCG tablet Indications:History of pre-eclampsia in prior , currently Take 0.5 tablets (400 mcg total) by mouth in the morning. 30 tablet ctive Active Problems ProblemNoted DateDiagnosed DateHistory of pre-eclampsia in prior , currently yeczesvo63/14/2021ubstance abuse affecting , antepartum 05/31/2021epression complicating , /14/2021Obesity affecting taiozbhuk86/14/2021History of gestational diabetes in prior , currently oktzeffg78/14/2021Former qpimdi721Severe recurrent major depression without psychotic xznxreqr34/25/2018Amphetamine use disorder, severe 11/11/2017Posttraumatic stress idnspuco17/25/2018Recurrent major depressive disorder, in partial wqmevpzbq72/06/2017Acute stress qiufpzpp95/06/2017 Resolved Problems ProblemNoted DateDiagnosed DateResolved DateTobacco smoking complicating ttqtxsumz77eizuresuicidal ideations Reported uukbgoc42 Family History Medical HistoryRelationNameCommentsAnxiety disorderFatherDepressionFather RelationNameStatusCommentsFather Social History Tobacco UseTypesPacks/DayYears UsedDateSmoking Tobacco: Every Day Vaping/E-cigarettesSmokeless Tobacco: Never Tobacco Cessation:Ready to Q uit: Not Asked; Counseling Given: Not Answered Alcohol UseStandard Drinks/WeekCommentsNo0 (1 standard drink = 0.6 oz pure alcohol)ChildcareAnswerDate QybptrmhOyqrdpzxcEarvkzb05/10/2019EmploymentAnswer Date IjrmfdlaBvgftvfplsAmqhriw47/10/2019Hunger ScreeningAnswerDate Recorded Within the past 12 months we worried whether our food would run out before we got money to buy more.Never True07/10/2023Within the past 12 months the food we bought just didn't last and we didn't have money to get more.Never True 3Purpose - LifeAnswerDate RecordedPurpose and direction in lifeUnknown 1CommentsNoSex and Gender InformationValueDate RecordedSex Assigned at BirthNot on fileLegal BfzEgofui76/04/2015 12:25 PM EDTGender IdentityNot on fileSexual OrientationNot on file Last Filed Vital Signs Vital SignReadingTime TakenCommentsBlood Rkndodep811/8404 10:37 AM EDT Qwhtk6817 10:37 AM BQVPqphkzvgkba02.7 ??C (98.1 ??F)01/05/2025 10:37 AM EDTRespiratory Zgye097701/05/2025 10:37 AM EDTOxygen Feguzkoxui977%01/05/2025 10:37 AM EDTInhaled Oxygen Concentration--Jgzped19.6 kg (160 lb)01/05/2025 10:37 AM UYECiolnl407.6 cm (5' 6 )01/05/2025 10:37 AM EDTBody Mass Index25.82 01/05/2025 10:37 AM EDT Plan of Treatment Health MaintenanceDue DateLast DoneCommentsTobacco Eyovnnpbxw1994DTaP,Tdap and Td Vaccines (6 - Tdap), 10/29/1995, 1994, Additional history existsDepression Xqcvdeljg72/27/2006dult BMI Follow Up Plan 01/12/2012Pap Smear2015Influenza Sggojjk3105/18/2025dult BMI Screening Tobacco Ucsxhyfug21 Medical Devices Not on file Insurance Advance Directives * Full Code (Latest Code Status on File) Date ActivatedDate InactivatedComments02/19/2017 4:41 PM02/23/2017 3:13 PM Care Teams Team MemberRelationshipSpecialtyStart DateEnd Date Prisca Dave, MARISA-MFTS [address] [place] [phone] (work) [facility]04/24/23
--- OUTSIDE RECORDS SUMMARY | 2025-07-08 21:36 | XMS_ITS | Encounter Summary ---
Author Organization [facility] Address [address] [place] [address] Care Team Providers Care Tank Car Cleaner Name Role Phone Unavailable Primary Care Provider Unavailabl e Encounter Details DateTypeDepartmentCare Team (Latest Contact Info)Xeavlsxojic69/21/2025amboo flowsheet [facility] [address] [place] [phone] Yousif Aparicio DO [address] [place] [address] Social History Tobacco UseTypesPacks/DayYears UsedDateSmoking Tobacco: NeverSmokeless Tobacco: NeverAlcohol UseStandard Drinks/WeekCommentsNever0 (1 standard drink = 0.6 oz pure alcohol)PHQ-2AnswerDate RecordedPatient Health Questionnaire-2 Score0 06/11/2025Estimated Date of PbwsbxzdZdscnxjuCoe36/05/2025Based on UltrasoundSex and Gender InformationValueDate RecordedSex Assigned at BirthNot on fileLegal JmgPvvcmd42/15/2023 8:06 PM EDTGender IdentityNot on fileSexual OrientationNot on filedocumented as of this encounter Plan of Treatment Not on file documented as of this encounter Visit Diagnoses Not on filedocumented in this encounter
--- OUTSIDE RECORDS SUMMARY | 2025-07-08 21:37 | XMS_ITS | Patient Health Record ---
Author Organization [facility] Address [address] [place] [address] Care Team Providers [employer] General Supervisor Name Role Phone Jennie Harris Primary Care Provider Prisca Moss Unavailable [phone] Marla Edwards Unavailable [phone] Jamila Winter Unavailable [phone] Allergies Allergen (clinical drug ingredient) Drug/Non Drug Allergy documented on EMR Reaction Allergy Type Onset Date Status WellbutrinSeizureDrug AllergyActive Reason For Referral Reason SCHEDULED 11/20 Hep C positive, needing treatment. Please evaluate and treat. Diagnosis 1 Chronic hepatitis C without hepatic coma (B18.2) Referral Organization [facility] Referring Provider First Name Prisca Referring Provider Last Name Isa Referring Provider Speciality Nurse Melanie guzman Referred Provider [facility] , . Referred Provider Specialty Gastroentero logy Referral Priority Routine Medications Medication SIG (Take, Route, Frequency, Duration) Notes Start Date End Date Status Citalopram Hydrobromide 10 MG Tablet 1 t ablet Orally Once a day; Duration: 30 days 5ActivePropranolol HCl 20 MG Tablet1 tablet Orally Once a day as needed; Duration: 30 daysNot-Taking/PRNGabapentin 600 MG Tablet1 tablet Orally three times a day; Duration: 30 daysActiveLaMICtal 25 MG Tablet1 tablet Orally daily; Duration: 30 daysActive Social History Social History Social DeterminantsSocial InfoQuestionAnswerNotesPRAPAREDate Completed/Updated: 04/04/2022What is your current housing situation?I have housingAre you worried about losing your housing?NoWhat is the highest level of school that you have finished?High school diploma or GEDWhat is your current work situation?Otherwise unemployed but not seeking work (ex. student, retired, disabled, unpaid primary nursing care attendant)In the past year, have you or any family members you live with been unable to get any of the following when it was really needed? Check all that applyI do not have problems meeting my needsHas lack of transportation kept you from medical appointments, meetings, work or from getting things needed for daily living?NoHow often do you see or talk to people that you care about and feel close to? (For example: talkingto friends on the phone, visiting friends or family, going to religion or club meetings)More than 5 times a weekHow stressed are you? Stress is when someone feels tense, nervous, anxious, or cant sleep at night because their mind is troubledA little bitIn the past year have you spent more than 2 nights in a row in a prison, custodial, fci center, orjuvenile correctional facility?NoAre you a refugee?NoWhat country are you from?[place]Do you feel physically and emotionally safe where you currently live?YesIn the past year, have you been afraid of your partner or ex-partner?NoPRAPARE Score:4GeneralSocial InfoQuestionAnswerNotesTransition of Care:ER/UC/hospital since last office visit?NoSpecialist seen since last office visit?NoSubstance abuse/mental health issues of patient/familyPatient -DepressionAbility to understand healthcare/treatmentPatient:GoodSexual Hx:Had sex in the last 12 months (vaginal, oral, or anal)?Yes? withMen onlyHave you ever had an STD?NoLMP: 2Social/Support Concerns:Patient:NoBehaviors affecting healthPoor/Risky Behaviors:Denies-Communication Barrier:Language Barrier?:NoDrug/Alcohol:Social InfoQuestionAnswerNotesAUDIT-C (Standard)Did you have a drink containing alcohol in the past year?HjEhuddr0OwitnltpikgrnsDymtptkdLwzcuix Use:Social InfoQuestion AnswerNotesTobacco Control (Standard)Additional Findings: Tobacco user e-cigarette Problems Problem Type SNOMED Code ICD Code Onset Dates Problem Status W/U Status Risk Notes Problem Tobacco user (430029411) Nicotin e dependence, unspecified, uncomplicated (F17.200) ActiveconfirmedProblemAnxiety (88336996)Anxiety (F41.9)ActiveconfirmedProblem Bipolar 1 disorder (920845725)Bipolar 1 disorder (F31.9)ActiveconfirmedProblem Neuropathy (526561317)Neuropathy (G62.9)ActiveconfirmedProblemChronic hepatitis C (798229483)Chronic hepatitis C without hepatic coma (B18.2)Activeconfirmed ProblemRecurrent depression (234312621)Recurrent depression (F33.9)Active confirmed Vital Signs Heart Rate 90 /min 02/17/2025 Prpydxugcte83.1 degrees Mljbxhlbnu70/03/2025Respiratory Rate20 /min02/17/2025 Zgmzgnyq17 %02/17/2025lood pressure vzcuyqltd23 mm Hg02/17/20251936Tdnvvv7bd0je in 02/17/2025lood pressure eqhzpamy805 mm Hg02/17/20257066Uptbho148.2 lbs02/17/2025MI 27.47 kg/m202/17/2025 Encounters Encounter Location Date Provider Diagnosis [facility] [address] [place] [address] 07/15/2024 Prisca barbarazzMurray Neuropathy G62.9 [facility] [address] [place] [address] 07/16/2024 Prisca zzzMurray Chronic constipation K59.09 [facility] [address] [place] [address] 08/19/2024 Prisca zzzMurray Neuropathy G62.9 [facility] [address] [place] [address] 10/24/2024 Prisca zzzMurray Chronic constipation K59.09 [facility] [address] [place] [address] 12/09/2024 Prisca barbarazzMurray Chronic constipation K59.09 [facility] [address] [place] [address] 12/22/2024 Prisca Tiffanierray Bipolar 1 disorder F31.9 ; Anxiety F41.9 and Neuropathy G62.9 [facility] [address] [place] [address] 01/12/2025 Prisca zzzMurray Chronic constipation K59.09 [facility] [address] [place] [address] 01/19/2025 Jamila Maggy Anxiety F41.9 and Bipolar 1 disorder F31.9 [facility] [address] [place] [address] 01/21/2025 Marla Edwards Neuropathy G62.9 [facility] [address] [place] [address] 02/20/2025 Jennie Harris Bipolar 1 disorder F31.9 and Neuropathy G62.9 [facility] [address] [place] [address] 03/24/2025 Jennie Harris Bipolar 1 disorder F31.9 and Neuropathy G62.9 [facility] [address] [place] [address] 04/22/2025 Jennie Harris Neuropathy G62.9 [facility] [address] [place] [address] 05/25/2025 Jennie Harris Neuropathy G62.9 [facility] [address] [place] [address] 06/24/2025 Jennie Harris Bipolar 1 disorder F31.9 [facility] [address] [place] [address] 06/29/2025 Jennie Harris Neuropathy G62.9 [facility] [address] [place] [address] 10/23/2024 Prisca erikaMurray Anxiety F41.9 ; Chronic hepatitis C without hepatic coma B18.2 ; Neuropathy G62.9 ; Seizure R56.9 and Recurrent depression F33.9 [facility] [address] [place] [address] 11/21/2024 Prisca barbarazzMurray Sore throat J02.9 ; Neuropathy G62.9 ; Chronic constipation K59.09 ; Bipolar 1 disorder F31.9 and Anxiety F41.[address] [address] 02/17/2025 Jennie Harris Bipolar 1 disorder F31.9 ; Anxiety F41.9 ; 17 weeks gestation of Z3A.17 and Upper respiratory tract infection, unspecified type J06.9 Assessments Encounter Date Diagnosis (ICD Code) Assessment Notes Treatment Notes Treatment Clinical Notes Section Notes 10/23/2024 Anxiety (ICD-10 - F41.9) Will start patient on propranolol 20mg PRN today. Discussed risks and side effects of medication including possible nausea, headache, upset stomach, diarrhea, constipation, anxiety, irritability, andsexual dysfunction. Most mild side effects improve over 4-6 weeks of use. Please monitor for worsening of symptoms, especially suicidal ideations or morbid thoughts, and call office and or go to the emergency department immediately if this occurs. Patient verbalized understanding, in agreement withplan.11/21/2024Sore throat (ICD-10 - J02.9) Likely post-viral. Recommended humidifier/hot shower, Vicks rub, spoon full of honey, OTC cough medications PRN. Follow up if no improvement, monitor for wheezing, increased work of breathing, worsening shortness of breath. Verbalized understanding.11/21/2024Neuropathy (ICD-10 - G62.9)OK to increase gabapentin to 600mg TID. OARRS report reviewed. Patient history consistent with prescribing. Refills provided today, 30 day supply.5Chronic constipation (ICD-10 - K59.09)5Bipolar 1 disorder (ICD-10 - F31.9)10/23/2024hronic hepatitis C without hepatic coma (ICD-10 - B18.2)Will place referral to GI for further evaluation & management. Patient in agreement with plan.5Chronic constipation (ICD-10 - K59.09)07/15/2024Neuropathy (ICD-10 - G62.9)07/16/2024 Chronic constipation (ICD-10 - K59.09)08/19/2024Neuropathy (ICD-10 - G62.9) 5Chronic constipation (ICD-10 - K59.09)01/19/2025nxiety (ICD-10 - F41.9)01/21/2025Neuropathy (ICD-10 - G62.9)02/17/2025nxiety (ICD-10 - F41.9) Discontinue propranolol start celexa 10mg daily. Instructed patient to let Dr. Aparicio communications coordinator know she started celexa. Follow up in 3 months. All questions and concerns addressed.02/17/2025ipolar 1 disorder (ICD-10 - F31.9)02/20/2025 Bipolar 1 disorder (ICD-10 - F31.9)04/22/2025Neuropathy (ICD-10 - G62.9) 05/25/2025Neuropathy (ICD-10 - G62.9)06/24/2025ipolar 1 disorder (ICD-10 - F31.9)06/29/2025Neuropathy (ICD-10 - G62.9)03/24/2025ipolar 1 disorder (ICD-10 - F31.9)03/24/2025Neuropathy (ICD-10 - G62.9)02/20/2025Neuropathy (ICD-10 - G62.9) weeks gestation of (ICD-10 - Z3A.17)01/19/2025 Bipolar 1 disorder (ICD-10 - F31.9)10/23/2024Neuropathy (ICD-10 - G62.9)Will re- start gabapentin at lower dose, 300mg TID. OARRS [...] agreement and subsequent refills. Pt verbalizes understanding. 5Anxiety (ICD-10 - F41.9)11/21/2024hronic constipation (ICD-10 - K59.09)Will continue current medication. F/U 3 months & PRN11/21/2024ipolar 1 disorder (ICD-10 - F31.9)Will continue current medication. F/U 3 months & PRN 12/22/2024Neuropathy (ICD-10 - G62.9)10/23/2024Seizure (ICD-10 - R56.9)Patient reports she had seizures after taking wellbutrin in the past as well. Noted in chart to avoid any further prescribing in the future.02/17/2025Upper respiratory tract infection, unspecified type (ICD-10 - J06.9)Increase fluids and rest. Amoxicillin as directed. All questions and concerns addressed.11/21/2024nxiety (ICD-10 - F41.9)Anxiety stable. Will continue current medication. F/U 3 months & PRN10/23/2024Recurrent depression (ICD-10 - F33.9)Patient denies SI/HI at this time. Reports she is going through a divorce and has been having a hard time. She will call [facility] for her follow up appt. Reviewed red flag symptoms, parameters to RTC.02/17/2025OtherBody Mass Index: Care Instructions material was printed Plan Of Treatment No Information Insurance Providers Payer Name Payer Address Payer Phone Subscriber Number Group Number Insured Name Patient Relationship to Insured Coverage Start Date Coverage End Date [employer] [place] [employer] [address] [place] [address] [id number] Demetri ERVIN - patient is the [id number] 2022[employer] [facility]PO [address] [place] [id number], KRISTINSelf - patient is the [id number] [employer] EnvolvePO [address] [address] [place] [id number], KRISTINSelf - patient is the insured [employer] [facility] [employer] [place] [phone] [id number], KRISTINSelf - patient is the [id number] 2023 [facility] [place] [id number], KRISTINSelf - patient is the insured zMEDICAID [facility] after [place]-termed [address] [place] [id number], KRISTINSelf - patient is the [id number] Medical (General) History Medical History History ICD Code depression anxietyneuropathyFX of left cheekHospitalization History Reason Date(Month/Year) 1 [facility] ICU 2024 Detox 11/20/2023 ChildBirth x3
--- OUTSIDE RECORDS SUMMARY | 2025-07-08 21:38 | XMS_ITS | Clinical Summary ---
Author Organization [facility] Address [address] [place] [address] Care Team Providers Care Mmd Unit Teacher Name Role Phone Unavailable Primary Care Provider Unavailabl e Allergies Active AllergyReactionsCriticalityNoted AfoxFpuetmshCxzwqbgbh61/05/2025 Other Reaction(s): Seizure Medications MedicationSigDispense QuantityRefillsLast FilledStart DateEnd DateStatus gabapentin (Neurontin) 600 MG tablet Take 600 mg by mouth in the morning and 600 mg in the evening and 600 mg before bedtime.Active linaCLOtide (Linzess) 145 MCG capsule Take 145 mcg by mouth in the morning. Take before meals.01/02/2024ctive lamoTRIgine (LaMICtal) 25 MG tablet TAKE 1 TABLET BY MOUTH EVERY DAY FOR 30 DAYSActive Vit-Fe Fumarate-FA ( Vitamins) 28-0.8 MG tablet Indications:Encounter for supervision of normal first in first trimester ([facility])Take 1 tablet by mouth Daily 30 tablet 11001/01/480106/ctive linaCLOtide (Linzess) 145 MCG capsule 1 (one) time each day at the same timeActive iron polysaccharides (ProFe) 391.3 (180 Fe) MG capsule Indications:Low iron,DizzinessTake 1 capsule (391.3 mg) by mouth Daily 30 capsule 6005/06/253612/ctive promethazine (Phenergan) 12.5 MG tablet Indications:NauseaTake 1 tablet (12.5 mg) by mouth every 6 (six) hours if needed for nausea or vomiting 180 tablet 108//609492/5Active metoclopramide (Reglan) 10 MG tablet Indications:Nausea and vomiting in ([facility])Take 1 tablet (10 mg) by mouth in the morning and 1 tablet (10 mg) at noon and 1 tablet (10 mg) in the evening. Take before meals. Take 1 tablet by mouth 30 minutes prior to meals 3 times daily as needed for nausea. 90 tablet 5Active Active Problems ProblemNoted DateDiagnosed DateHistory of gestational txrluikm60/14/2025H/O pre- eclampsia in prior , currently ([facility])06/30/2025nemia 06/30/2025Estimated Date of HqqakykoBwxlxwtkEty77/05/2025ased on Ultrasound Encounters DateTypeDepartmentCare BsgvTcbikseoqcz65/21/2025 2:20 [place] [address] Yousif Aparicio DO Third trimester ([facility]); 37 weeks gestation of ([facility])07/07/2025amboo [place] [address] Yousif Aparicio DO 06/30/2025 1:50 [place]out[place] [address] Jody Kimble PA Third trimester ([facility]); 36 weeks gestation of ([facility]); H/O pre-eclampsia in prior , currently ([facility]); H/O miscarriage, currently ([facility]); History of gestational diabetes; Anemia, unspecified type06/30/2025 1:00 PM EDTAncillary [place] [address] DANICA (amniotic fluid index) borderline low06/18/2025linisync Result Encounter [facility] External Department Unsolicited Violet Woody NP 06/11/2025Patient Outreach [facility] [address] [place] [address] Jody Gentile LPN 06/08/2025 11:10 AM EDTRoutine [facility] [address] [place] [address] Yousif Aparicio, Anemia, unspecified type (Primary Dx); Third trimester ([facility]); 33 weeks gestation of ([facility]); Gestational diabetes mellitus (GDM) in third trimester, gestational diabetes method of control unspecified ([facility]); H/O pre-eclampsia in prior , currently ([facility]); H/O miscarriage, currently ([facility]); DANICA (amniotic fluid index) borderline low06/08/2025amboo flowsheet [facility] [address] [address] Yousif Aparicio, 05/21/2025linisync Result Encounter [facility] External Department Unsolicited Violet Woody NP 05/20/2025 9:50 AM EDTRoutine [facility] [address] [address] Violet Woody NP Diarrhea, unspecified type (Primary Dx); Third trimester ([facility]); 31 weeks gestation of ([facility]); Nausea and vomiting in ([facility])05/20/2025 9:30 AM EDTAncillary Procedure [facility] [address] [address] size inconsistent with dates ([facility])05/19/2025bstract [facility] [address] [place] [address] Anne-Marie Mcleod MA 05/14/2025bstract [facility] [address] [address] Yousif Aparicio, 05/14/2025bstract [facility] [address] [address] Yousif Aparicio, 05/14/2025Patient Outreach [facility] [address] [place] [address] Jody Gentile LPN 5Abstract [facility] [address] [address] Yousif Aparicio, 5Clinisync Result Encounter [facility] External Department Unsolicited Violet Woody NP 05/06/2025 11:30 AM EDTRoutine [facility] [address] [address] Yousif Aparicio, Third trimester ([facility]); 29 weeks gestation of ([facility]); size inconsistent with dates ([facility]); Low iron; Dizziness; Cjwwza845Bamboo flowsheet [facility] [address] [address] Yousif Aparicio DO 04/29/2025Refill [facility] [address] [address] Marva Wagner, [place] Nausea and vomiting, unspecified vomiting type04/17/2025Patient Outreach [facility] [address] [place] [address] Jody Gentile, [place] 04/09/2025 9:50 AM EDTRoutine [facility] [address] [address] Jody Kimble, PA Second trimester ([facility]); 25 weeks gestation of ([facility])5Bamboo flowsheet [facility] [address] [address] [place], Jody, PA from Last 3 Months Social History Tobacco UseTypesPacks/DayYears UsedDateSmoking Tobacco: NeverSmokeless Tobacco: Never Tobacco Cessation:Counseling Given: Not Answered Alcohol UseStandard Drinks/WeekCommentsNever0 (1 standard drink = 0.6 oz pure alcohol)PHQ-2AnswerDate RecordedPatient Health Questionnaire-2 Bjxdc242 Estimated Date of KbwuyuzgKeukhnfsSkf02/05/2025Based on UltrasoundSex and Gender InformationValueDate RecordedSex Assigned at BirthNot on fileLegal QobHgrijn37/15/2023 8:06 PM EDTGender IdentityNot on fileSexual OrientationNot on file Last Filed Vital Signs Vital SignReadingTime TakenCommentsBlood Ezhuifln454/6807/07/2025 2:28 PM EDT Pulse--Temperature--Respiratory Rate--Oxygen Saturation--Inhaled Oxygen Concentration--Gdezpj08.6 kg (199 lb 12.8 oz)07/07/2025 2:28 PM EDTHeight--Body Mass Index-- Plan of Treatment Health MaintenanceDue DateLast DoneCommentsHPV/Lgnxfw8001/12/2024Influenza Vaccine (#1)5Cervical Cancer Uqrfibuqo31/25/2028Pap Smear8003/11/2025, 06/20/2023 Procedures Procedure NamePriorityDate/TimeAssociated DiagnosisCommentsPOCT URINALYSIS FSBCITMZTbidckg79/21/2025 2:40 PM EDT 37 weeks gestation of ([facility]) POCT URINALYSIS VIBFUWMUHjqkfif18/14/2025 1:50 PM EDT Third trimester ([facility]) US OB LIMITED 1+ SZYYOIMOftzhun23/14/2025 1:18 PM EDT DANICA (amniotic fluid index) borderline low ALL CBC WITH AUTO QSDRHeqkucv49/02/2025 2:11 PM EDT OVA AND PARASITE SNVVOFXhuvlud54/22/2025 1:44 PM EDT Diarrhea, unspecified type STOOL QMKQVOJEghmiox53/22/2025 1:44 PM EDT Diarrhea, unspecified type POCT URINALYSIS UMPIAMOJMjlumkk22/22/2025 11:32 AM EDT Third trimester ([facility]) OVA + PARASITE HQPZHdzgcpp53/04/2025 8:55 AM EDT POCT URINALYSIS HKQPFBQCZaaitue58/03/2025 10:19 AM EDT Third trimester ([facility]) 31 weeks gestation of ([facility]) US OB FOLLOW UP TRANSABDOMINAL XIICOEPOIcilagl79/03/2025 10:01 AM EDT size inconsistent with dates ([facility]) PMLZBWJPWAOTbvlqlp51/22/2025 9:39 AM EDT [facility] RGYXSNKOCjpjjmx92/22/2025 9:39 AM EDT ALL CBC WITH AUTO OQWCRyqebol98/22/2025 9:39 AM EDT GLUCOSE 1 YLSMOdffagg25/22/2025 9:39 AM EDT POCT URINALYSIS JSTNKXFJIvsrtur56/20/2025 11:51 AM EDT Third trimester ([facility]) POCT URINALYSIS PFWJATUEHihhwof75/24/2025 10:07 AM EDT Second trimester ([facility]) PAP WELLIUqwjpgc49/25/2025 12:00 AM EDTfrom Last 3 Months or Most Recently Relevant to Health Maintenance Results * (ABNORMAL) POCT urinalysis dipstick manually resulted (07/07/2025 2:40 PM EDT) Only the most recent of6 resultswithin the time period is included. ComponentValueRef RangeTest MethodAnalysis TimePerformed AtPathologist Signature Color, UAYellowClarity, UAClearGlucose, UANegativeNegative - 2000(110) ++++ mg/dLBilirubin, UANegativeNegative - 4(70) +++ mg/dLKetones, UAPositiveNegative - 160(16) ++++ mg/dLSpec Grav, UA1.0151 - 1.03Blood, UANegativeNegative - 50 Chriss/mcLpH, UA6.05 - 9Protein, UATraceNegative - 1999(20) ++++ mg/dLUrobilinogen, UA>=8.00.2 - 12 mg/dLLeukocytes, UANegativeNegative - 500+++ Leila/mcLNitrite, UA NegativeNegative - PositiveSpecimen (Source)Anatomical Location / Laterality Collection Method / VolumeCollection TimeReceived PxaoRuodo24/21/2025 2:40 PM EDT Narrative Authorizing ProviderResult TypeResult StatusCorey Markus DOPOINT OF CARE TEST ENTER/EDIT ORDERABLESFinal Result * US OB limited 1+ fetuses (06/30/2025 1:18 PM EDT)Anatomical RegionLaterality ModalityBodyUltrasoundSpecimen (Source)Anatomical Location / Laterality Collection Method / VolumeCollection TimeReceived Time06/30/2025 2:30 PM EDT Impressions 06/30/2025 2:51 PM EDT 1. Single viable intrauterine (normal and cardiac activity) 2. ?? DANICA 13.4 cm increased from prior examination of May 20, 2025, 9.6 cm. TRANSCRIBED BY: ? ELECTRONICALLY SIGNED BY: Kobe Sotelo MD Narrative 06/30/2025 2:51 PM EDT FINDINGS: Comparison made with prior examination of May 20, 2025. Single viable intrauterine, cephalic presentation, normal and cardiac bpm. Normal normal amniotic fluid volume, 13.0 cm, largest fluid pocket 5.0 cm. Gestational age of 36 weeks, 5 days with an estimated delivery date of July 22, 2025. Procedure Note Kobe Sotelo MD - 06/30/2025 FINDINGS: Comparison made with prior examination of May 20, 2025. Single viable intrauterine, cephalic presentation, normal andcardiac ylazri994 bpm. Normal normal amniotic fluid volume, 13.0 cm, largest fluid pocket 5.0cm. Gestational age of 36 weeks, 5 days with an estimated delivery date ofJuly 22, 2025. IMPRESSION: 1. Single viable intrauterine (normal and cardiacactivity) 2. DANICA 13.4 cm increased from prior examination of May 20, 2025,9.6 cm. TRANSCRIBED BY: ELECTRONICALLY SIGNED BY: Kobe Sotelo MD Authorizing ProviderResult TypeResult StatusKrgonzalez Bong NPIMG OB US PROCEDURESFinal Result * (ABNORMAL) ALL CBC WITH AUTO DIFF (06/18/2025 2:11 PM EDT) Only the most recent of2 resultswithin the time period is included. ComponentValueRef RangeTest MethodAnalysis TimePerformed AtPathologist Signature TBH WBC8.94.0 - 11.0 10 3/uLTBHTBH RBC4.19(L)4.20 - 5.40 10 6/uLTBHTBH HGB10.5 (L)12.0 - 16.0 g/dLTBHTBH HCT32.3(L)36.0 - 48.0 %TBHTBH MCV77.1(L)81.0 - 99.0 fL TBHTBH MCH25.1(L)26.7 - 34.0 pgTBHTBH MCHC32.529.9 - 35.2 g/dLTBHTBH RDW24.9(H) 11.0 - 15.0 %TBHTBH DRP966257 - 450 10 3/uLTBHTBH MPV10.99.5 - 13.5 fLTBH NEUTROPHILS PERCENT AUTO76.7(H)43.0 - 75.0 %TBHLYMPHOCYTES PERCENT AUTO14.0(L) 20.5 - 60.0 %TBHMONOCYTES PERCENT AUTO8.21.7 - 12.0 %TBHTBH EO %0.3(L)0.9 - 7.0 %TBHBASOPHILS PERCENT AUTO0.20.2 - 2.0 %TBHIMMATURE GRANULOCYTES PCT AUTO0.6(H) 0.0 - 0.5 %TBHNEUTROPHILS ABSOLUTE AUTO6.8(H)1.4 - 6.5 10 3/uLTBHLYMPHOCYTES ABSOLUTE AUTO1.31.2 - 3.8 10 3/uLTBHMONOCYTES ABSOLUTE AUTO0.70.3 - 0.8 10 3/uL TBHTBH EO #0.00.0 - 0.7 10 3/uLTBHBASOPHILS ABSOLUTE AUTO0.00.0 - 0.1 10 3/uLTBH IMMATURE GRANULOCYTES ABS AUTO0.05(H)0.00 - 0.03 10 3/uLTBHSpecimen (Source) Anatomical Location / LateralityCollection Method / VolumeCollection Time Received Time06/18/2025 2:11 PM EDT1 2:20 PM EDT Narrative [facility] - 06/18/2025 3:17 PM EDT Authorizing ProviderResult TypeResult StatusViolet Woody FORMERLY [facility]PITALLINISYNCFinal ResultPerforming OrganizationAddressty/State/ZIP CodePhone Number [facility]ITALISYNC [facility] * Ova and parasite screen (06/08/2025 1:44 PM EDT)Specimen (Source)Anatomical Location / LateralityCollection Method / VolumeCollection TimeReceived Time StoolRectal contents / Unknown Narrative Authorizing ProviderResult TypeResult StatusJonathongonzalez CorneliusGranada Hills [facility] MICROBIOLOGY - GENERAL ORDERABLESFinal ResultPerforming OrganizationAddressty/State/ZIP Code Phone Number EXTERNAL LAB * Stool culture (06/08/2025 1:44 PM EDT)Specimen (Source)Anatomical Location / LateralityCollection Method / VolumeCollection TimeReceived TimeStoolRectal contents / Unknown Narrative Authorizing ProviderResult TypeResult StatusViolet [facility] MICROBIOLOGY - GENERAL ORDERABLESFinal ResultPerforming OrganizationAddUniversal Health Servicesty/State/ZIP Code Phone Number [facility] * OVA + PARASITE EXAM (05/21/2025 8:55 AM EDT)ComponentValueRef RangeTest Method Analysis TimePerformed AtPathologist SignatureOVA + PARASITE EXAMFinal report. TBHComment: These results were obtained using wet preparation(s) and trichrome stained smear. This test does not include testing for Cryptosporidium parvum, Cyclospora, or Microsporidia. RESULT 1Comment.TBHComment: No ova, cysts, or parasites seen. One negative specimen does not rule out the possibility of a parasitic infection. Performed at: ?? - [facility] [address] [place], [place] ??[id number] Renal Dialysis Technician: Justice Flor PhD, Phone: ??[phone] Specimen (Source)Anatomical Location / LateralityCollection Method / Volume Collection TimeReceived Time05/21/2025 8:55 AM EDT05/21/2025 1:53 PM EDT Narrative [facility] - 05/26/2025 5:08 PM EDT STOOL Authorizing ProviderResult TypeResult StatusViolet Woody NPLAB BLOOD ORDERABLESFinal ResultPerforming OrganizationAddressCity/State/ZIP CodePhone Number [facility] * US OB follow up transabdominal approach (05/20/2025 10:01 AM EDT)Anatomical RegionLateralityModalityBodyUltrasoundSpecimen (Source)Anatomical Location / LateralityCollection Method / VolumeCollection TimeReceived Time05/20/2025 3:16 PM EDT Impressions 05/21/2025 7:33 AM EDT 1. Single, live intrauterine , current sonographic age of 31 weeks and days, with an estimated date of delivery of July 19, 2025. 2. ??Compared with the prior examination of April 01, 2025 deliver at that time was July 21nd weight by percentile was 50.1% * ??Estimated Weight (g) by Percentile is based upon an accurate estimated age based onlast menstrual period. ?? TRANSCRIBED BY: ? ELECTRONICALLY SIGNED BY: Kobe Sotelo MD Narrative 05/21/2025 7:33 AM EDT FINDINGS: Comparison made with prior examination of April 01, 2025.. A single, live intrauterine is present with normal cardiac rate of 168 ??beats per minute. Normal activity and amniotic fluid volume. Amniotic fluid index is ??9.6 cm. ??Morphology is grossly normal. The current sonographic age is ??31 weeks and 3 days, based on the following measurements: BPD ?7.8 cm ( 31 weeks,1 ??days) Head Circumference ? 28.7cm ( 31 weeks, 4 days) Abdominal Circumference ? 28.1cm ( 32 weeks, 1 days) Femur Length ?6.cm ?( 31weeks,0 ??days) Presentation ? Cephalic ? Weight (g) by Percentile ?? 60.9% * These measurements result in an estimated date of delivery of July 19, 2025. ?The current estimated weight is 1813 ?? grams (4 ??pound, ??0 ounces). ?? Procedure Note Kobe Sotelo MD - 05/21/2025 [...] BY: Kobe Sotelo MD Authorizing ProviderResult TypeResult StatusCorey Markus IVERSON OB US PROCEDURES Final Result * GLUCOSE 1 HOUR (05/08/2025 9:39 AM EDT)ComponentValueRef RangeTest Method Analysis TimePerformed AtPathologist SignatureGLUCOSE 1 GHBC510<130 mg/dLTBH Specimen (Source)Anatomical Location / LateralityCollection Method / Volume Collection TimeReceived Time05/08/2025 9:39 AM EDT05/08/2025 9:41 AM EDT Narrative [facility] - 05/08/2025 10:01 AM EDT Authorizing ProviderResult TypeResult StatusViolet Woody NPLAB BLOOD ORDERABLESFinal ResultPerforming OrganizationAddressCity/State/ZIP CodePhone Number [facility] * (ABNORMAL) TRANSFERRIN (05/08/2025 9:39 AM EDT)ComponentValueRef RangeTest MethodAnalysis TimePerformed AtPathologist RmjqgtxjoNRMQYAEMXUE727(A)192 - 364 mg/dLTBHComment: Performed at: ?? - [facility] ??[id number] Renal Dialysis Technician: Justice Flor PhD, Phone: ??[phone] Specimen (Source)Anatomical Location / LateralityCollection Method / Volume Collection TimeReceived Time05/08/2025 9:39 AM EDT05/08/2025 9:41 AM EDT Narrative [facility] - 05/09/2025 4:07 AM EDT Authorizing ProviderResult TypeResult StatusCorey Amrkus DOLAB BLOOD ORDERABLES Final ResultPerforming OrganizationAddressCity/State/ZIP CodePhone Number [facility] * (ABNORMAL) [facility] FERRITIN (05/08/2025 9:39 AM EDT)ComponentValueRef RangeTest MethodAnalysis TimePerformed AtPathologist SignatureFERRITIN2.0(L)8.0 - 252.0 ng/mLTBHSpecimen (Source)Anatomical Location / LateralityCollection Method / VolumeCollection TimeReceived Time05/08/2025 9:39 AM EDT05/08/2025 9:41 AM EDT Narrative [facility] - 05/08/2025 11:07 AM EDT Authorizing ProviderResult TypeResult StatusCorey Markus DOCLINISYNCFinal Result Performing OrganizationAddressCity/State/ZIP CodePhone Number [facility]IN[facility]NC [facility] * Pap Smear (03/11/2025 12:00 AM EDT)Specimen (Source)Anatomical Location / LateralityCollection Method / VolumeCollection TimeReceived TimeSwabCervical swab / Unknown Narrative Authorizing ProviderResult TypeResult StatusCorey Markus DOLAB CYTOLOGY ORDERABLESFinal ResultPerforming OrganizationAddressCity/State/ZIP CodePhone Number EXTERNAL LAB from Last 3 Months or Most Recently Relevant to Health Maintenance Insurance
--- OUTSIDE RECORDS SUMMARY | 2025-07-08 21:38 | XMS_ITS | Clinical Summary ---
Author Organization [facility] Address [address] [place], [place] [id number] Care Team Providers Care Arc And Gas Welder Name Role Phone Rodo Lincoln MD Primary Care Provider Allergies No known active allergies Medications MedicationSigDispense QuantityRefillsLast FilledStart DateEnd DateStatus gabapentin (NEURONTIN) 400 mg capsule Take by mouth.08/08/2021ctive Polysaccharide Iron Complex 180 mg iron cap Take by mouth.06/01/2021ctive aspirin 81 mg cap Take 81 mg by mouth once daily.Active ONDANSETRON HCL ORAL Take 4 mg by mouth as needed.Active Active Problems No known active problems Social History Tobacco UseTypesPacks/DayYears UsedDateSmoking Tobacco: NeverSmokeless Tobacco: NeverAlcohol UseStandard Drinks/WeekCommentsNot Currently0 (1 standard drink = 0.6 oz pure alcohol)CommentsUnknownSex and Gender InformationValueDate RecordedSex Assigned at BirthNot on fileLegal UitTlhlde01/08/2022 3:08 PM EST Gender IdentityNot on fileSexual OrientationNot on file Last Filed Vital Signs Vital SignReadingTime TakenCommentsBlood Lhlahewi113/70011/08/2021 11:34 AM EST Anaql67469/22/2022 11:34 AM JONDpwwfbjgdlv07.5 ??C (97.7 ??F)11/08/2021 11:34 AM ESTRespiratory Lmii296411/08/2021 11:34 AM ESTOxygen Sseufeofyd45%11/08/2021 11:34 AM ESTInhaled Oxygen Concentration--Mvxadk65.4 kg (205 lb 12.8 oz)11/08/2021 11:34 AM ESTHeight--Body Mass Index-- Plan of Treatment Health MaintenanceDue DateLast DoneCommentsAnxiety Xiaqluxff60/27/2012Depression Wylmnsgaf78/27/2012HIV Ieauiopnu03/27/2012DTaP,Tdap,Td Vaccine (1 - Tdap) 2013Hepatitis B Vaccine (1 of 3 - 19+ 3-dose series)2013Cervical Cancer Mjvfjhmsl65/27/2015HPV Vaccine (1 - 3-dose SCDM series)1Covid-19 Vaccine (1 - 2024- season)2025Influenza Vaccine (#1)2025Hepatitis C PbqbhilglVionkdnku36/10/2020, 11/20/2019, 06/19/2019 Insurance Care Teams Team MemberRelationshipSpecialtyStart DateEnd Date Rodo Lincoln MD [address] [place] [address] PCP - GeneralFamily Medicine11/08/21
[2025-07-08 21:48] VITALS: BP 130/78; PULSE 93
[2025-07-08 22:06] LABS: Glucose Urine UA NEGATIVE (NEGATIVE)
[2025-07-08 22:17] LABS: Cast Seen? NONE SEEN #/LPF (NONE SEEN); Crystals Seen? None Seen #/HPF (None Seen)
[2025-07-08 22:18] LABS: Cannabinoid Screen Urine POSITIVE (NEGATIVE); Methamphetamines Screen Urine NEGATIVE (NEGATIVE); Tricyclic Antidepressant Urine NEGATIVE (NEGATIVE)
== END 2025-07-08 23:50 | disposition home or self-care (01) ==
PROVIDERS: Midwife; Admitting Provider Obstetrics & Gynecology; Visit Provider Obstetrics & Gynecology
DX: O47.9 False labor, unspecified (principal); Z3A.00 Weeks of gestation of pregnancy not specified
CPT/HCPCS: 80307; 80349; 81001; G0378; G0379

== ENCOUNTER 2025-07-15 07:41 | Inpatient (IN) | payer OTHER, SELFPAY ==
--- OUTSIDE RECORDS SUMMARY | 2024-10-16 10:30 | XMS_ITS ---
Author Organization [facility] Servic es Address [address] [place] [address] Care Team Providers Care Configuration Management Specialist Name Role Phone Jennie Harris Primary Care Provider Prisca Moss Unavailable [phone] REASON FOR VISIT CHRONIC CARE/ MED CHECK Encounters Encounter Location Date Provider Diagnosis [facility] [address] [place] [address] 10/16/2024 Prisca Moss Plan Of Treatment No Information Progress Notes * NOE ERVINDOB: 4 (30 yo F)Acc No.[id number]:10/16/2024 Progress Notes Patient: NOE BOSTON :?Prisca DaveDOB:1995???Age:29 Y???Sex:Female Date:10/16/2024Phone:[phone]:[address] [place], [place] [address] Pcp:Jennie Harris Subjective: * Chief Complaints: * C HRONIC CARE/ MED CHECK Billing Information: * Procedure Codes: * Electronic signature of Prisca Moss CNP on 07/15/2025 at 05:32 AM EDTSign off status: Pending * Provider: Jayla Dave Date: 0 10/16/2024 Generated for Printing/Faxing/eTransmitting on:?07/15/2025 05:32 AM EDT
--- OUTSIDE RECORDS SUMMARY | 2024-11-20 11:00 | XMS_ITS ---
Author Organization [facility] Servic es Address [address] [place] [address] Care Team Providers Care Supervisor Engine Repair Name Role Phone Jennie Harris Primary Care Provider [phone] Prisca Moss Unavailable [phone] REASON FOR VISIT 4-6 week f/u med check Encounters Encounter Location Date Provider Diagnosis [facility] [address] [place] [address] 11/20/2024 Prisca Moss Plan Of Treatment No Information Progress Notes * NOE ERVINDOB: 4 (30 yo F)Acc No.[id number]:11/20/2024 Progress Notes Patient: NOE BOSTON :?Prisca DaveDOB:1995???Age:29 Y???Sex:Female Date:11/20/2024Phone:[phone]:[address] [place], [place] [address] Pcp:Jennie Harris Subjective: * Chief Complaints: * 4 -6 week f/u med check * Electronic signature of Prisca Moss CNP on 07/15/2025 at 05:31 AM EDTSign off status: Pending * Provider: Jayla Dave Date: 0 11/20/2024 Generated for Printing/Faxing/eTransmitting on:?07/15/2025 05:31 AM EDT
--- OUTSIDE RECORDS SUMMARY | 2025-01-20 11:15 | XMS_ITS ---
Author Organization [facility] Servic es Address [address] [place] [address] Care Team Providers Care Banquet Pilot Name Role Phone Jennie Harris Primary Care Provider Prisca Moss Unavailable [phone] Jamila Winter Unavailable REASON FOR VISIT MEDICATION QUESTIONS PT IS Encounters Encounter Location Date Provider Diagnosis [facility] [address] [address] 01/20/2025 Jamila Winter Plan Of Treatment No Information Progress Notes * NOE ERVINDOB: 4 (30 yo F)Acc No.[id number]:01/20/2025 Progress Notes Patient: Lorrie MONTESMICHAEL NOE :?Jamila Choudhary CNPDOB:1995???Age:30 Y ???Sex:FemaleDate:01/20/2025Phone:[phone]:[address] [place] [address]Pcp:Jennie Harris Subjective: * Chief Complaints: * M EDICATION QUESTIONS PT IS Billing Information: * Procedure Codes: * Electronic signature of MASSIEL Bales on 07/15/2025 at 05:32 AM EDTSign off status: Pending * Provider: Lorrie Choudhary CNP Date: 0 01/20/2025 Generated for Printing/Faxing/eTransmitting on:?07/15/2025 05:32 AM EDT
--- OUTSIDE RECORDS SUMMARY | 2025-01-26 09:45 | XMS_ITS ---
Author Organization [facility] Serv[facility] es Address [address] [facility] [place] [address] Care Team Providers Care Inside Sales Professional Name Role Phone Jennie Harris Primary Care Provider Prisca Moss Unavailable [phone] Marla Edwards Unavailable [phone] REASON FOR VISIT MEDICATION QUESTIONS PT IS Encounters Encounter Location Date Provider Diagnosis [facility] [address] [place] [address] 01/26/2025 Marla Edwards Plan Of Treatment No Information Progress Notes * NOE ERVINDOB: 4 (30 yo F)Acc No.[id number]:01/26/2025 Progress Notes Patient: NOE BOSTON Provider:?SCOOBY CALVERT:1995 ???Age:30 Y???Sex:FemaleDate:01/26/2025Phone:[phone]:[address] [place], [place] [address]Pcp:Jennie Harris Subjective: * Chief Complaints: * M EDICATION QUESTIONS PT IS Billing Information: * Procedure Codes: * Electronic signature of Marla Edwards DO on 07/15/2025 at 05:32 AM EDTSign off status: Pending * Appointment Provider: Lorrie WALSH DO Date: 0 01/26/2025 Generated for Printing/Faxing/eTransmitting on:?07/15/2025 05:32 AM EDT
--- OUTSIDE RECORDS SUMMARY | 2025-02-11 09:30 | XMS_ITS ---
Author Organization [facility] Servic es Address [address] [facility] [place] [address] Care Team Providers Care Pressure Testing Technician Name Role Phone Jennie Harris Primary Care Provider [phone] Prisca Moss Unavailable [phone] REASON FOR VISIT casandra prisca Encounters Encounter Location Date Provider Diagnosis [address] [place] [address] 02/11/2025 Jennie Harris Plan Of Treatment No Information Progress Notes * NOE ERVINDOB: 4 (30 yo F)Acc No.[id number]:02/11/2025 Progress Notes Patient: NOE BOSTON :?CHRIS HenningCDOB:1995???Age:30 Y ???Sex:FemaleDate:02/11/2025Phone:[phone]:[address] [place], [place] [address] Subjective: * Chief Complaints: * T oc prisca Billing Information: * Procedure Codes: * Electronic signature of Jennie Harris CNP on 07/15/2025 at 05:32 AM EDTSign off status: Pending * Provider: JUANI Martinez Date: 0 02/11/2025 Generated for Printing/Faxing/eTransmitting on:?07/15/2025 05:32 AM EDT
--- OUTSIDE RECORDS SUMMARY | 2025-05-07 09:15 | XMS_ITS ---
Author Organization [facility] Serv[facility] es Address [address] [facility] [place] [address] Care Team Providers Care Dock Boss Name Role Phone Jennie Harris Primary Care Provider KaylijacquiPrisca [phone] REASON FOR VISIT vomiting/diarrhea while Encounters Encounter Location Date Provider Diagnosis [place] [address] [facility] [place] [address] 05/07/2025 Jennie Harris Plan Of Treatment No Information Progress Notes * NOE ERVINDOB: 4 (30 yo F)Acc No.[id number]:05/07/2025 Progress Notes Patient: NOE BOSTON :?CHRIS HenningCDOB:1995???Age:30 Y ???Sex:FemaleDate:05/07/2025Phone:[phone]:[address] [place], [place] [address] Subjective: * Chief Complaints: * V omiting/diarrhea while Billing Information: * Procedure Codes: * Electronic signature of Jennie Harris CNP on 07/15/2025 at 05:32 AM EDTSign off status: Pending * Provider: JUANI Martinez Date: 0 05/07/2025 Generated for Printing/Faxing/eTransmitting on:?07/15/2025 05:32 AM EDT
--- OUTSIDE RECORDS SUMMARY | 2025-07-02 06:45 | XMS_ITS ---
Author Organization [facility] Address [address] [place] [address] Care Team Providers Care Tree Puller Name Role Phone Jennie Harris Primary Care Provider [phone] KaylijacquiPrisca [phone] REASON FOR VISIT 3 month f/u Encounters Encounter Location Date Provider Diagnosis [address] [place] [address] 07/02/2025 Jennie Harris Plan Of Treatment No Information Progress Notes * NOE ERVINDOB: 4 (30 yo F)Acc No.[id number]:07/02/2025 Progress Notes Patient: NOE BOSTON :?CHRIS HenningCDOB:1995???Age:30 Y ???Sex:FemaleDate:07/02/2025Phone:[phone]:[address] [place], [place] [id number] Subjective: * Chief Complaints: * 3 month f/u Billing Information: * Procedure Codes: * Electronic signature of Jennie Harris CNP on 07/15/2025 at 05:33 AM EDTSign off status: Pending * Provider: JUANI Martinez Date: 1 Generated for Printing/Faxing/eTransmitting on:?07/15/2025 05:33 AM EDT
--- OUTSIDE RECORDS SUMMARY | 2025-07-07 14:20 | XMS_ITS | Encounter Summary ---
Author Organization [facility] Address [address] [place] [address] Care Team Providers Care Gauger Delivery Name Role Phone Unavailable Primary Care Provider Unavailabl e Reason for Visit * ReasonCommentsRoutine Visit Encounter Details DateTypeDepartmentCare Team (Latest Contact Info)Jbpshyxlsii64/21/2025 2:20 PM EDTRoutine [facility] [address] [place] [phone] Yousif Aparicio, [address] [place] [address] Third trimester ([facility]); 37 weeks gestation of ([facility]) Social History Tobacco UseTypesPacks/DayYears UsedDateSmoking Tobacco: NeverSmokeless Tobacco: NeverAlcohol UseStandard Drinks/WeekCommentsNever0 (1 standard drink = 0.6 oz pure alcohol)PHQ-2AnswerDate RecordedPatient Health Questionnaire-2 Score0 06/11/2025Estimated Date of WdrtjjgbPpfemvrqOiq34/05/2025ased on UltrasoundSex and Gender InformationValueDate RecordedSex Assigned at BirthNot on fileLegal KqfYvbflb43/15/2023 8:06 PM EDTGender IdentityNot on fileSexual OrientationNot on filedocumented as of this encounter Last Filed Vital Signs Vital SignReadingTime TakenCommentsBlood Fjuhogoh595/6810/ 2:28 PM EDT Pulse--Temperature--Respiratory Rate--Oxygen Saturation--Inhaled Oxygen Concentration--Xorywr83.6 kg (199 lb 12.8 oz)07/07/2025 2:28 PM EDTHeight--Body Mass Index--documented in this encounter Progress Notes * Rajani Mabel, DEPENDENCY DIRECTOR - 07/07/2025 2:20 PM EDT Reason for [...] 06/30/2025 H/O pre-eclampsia in prior , currently ([facility]) 06/30/2025 Anemia 06/30/2025 Resolved Ambulatory Problems Diagnosis Date Noted No Resolved Ambulatory Problems Past Medical History: Diagnosis Date Anxiety Bipolar disorder ([facility]) Depression Fibromyalgia Gestational diabetes ([facility]) Insomnia Irritable bowel syndrome with constipation Opioid abuse ([facility]) Tobacco user HISTORY PAST MEDICAL HISTORY SOCIAL HISTORY Past Medical History: Diagnosis Date Anxiety Bipolar disorder ([facility]) Depression Fibromyalgia Gestational diabetes ([facility]) Insomnia Irritable bowel syndrome with constipation Opioid abuse ([facility]) Tobacco user Social History Tobacco Use Smoking [...] nursing note reviewed. Exam conducted with a meter reader present. Vitals: There is no height or weight on file to calculate BMI. BP: 128/68 Patient's last menstrual period was 10/21/2024 (exact date). Assessment/Plan ICD-10-CM 1. Third trimester ([facility]) Z34.93 2. 37 weeks gestation of ([facility]) Z3A.37 POCT urinalysis dipstick manually resulted Return [...] on 07/15/25- inductionpaperwork signed and [facility] to [facility]. Orders Placed This Encounter Procedures POCT urinalysis dipstick manually resulted Follow Up: Patient is to return to office in 1 week for routine OB appointment. Documented by Rajani Monroe LPN on behalf of: Yousif Aparicio DO documented in this encounter Plan of Treatment Not on file documented as of this encounter Procedures Procedure NamePriorityDate/TimeAssociated DiagnosisCommentsPOCT URINALYSIS TLZKWLAERdgoclm88/21/2025 2:40 PM EDT 37 weeks gestation of ([facility]) documented in this encounter Results * (ABNORMAL) [...] / LateralityCollection Method / VolumeCollection Time Received IzzvHmxww18/21/2025 2:40 PM EDT Narrative Authorizing ProviderResult TypeResult StatusCorey Markus DOPOINT OF CARE TEST ENTER/EDIT ORDERABLESFinal Result documented in this encounter Visit Diagnoses Diagnosis Third trimester ([facility]) state, incidental 37 weeks gestation of ([facility]) documented in this encounter
--- OUTSIDE RECORDS SUMMARY | 2025-07-07 14:20 | XMS_ITS | Encounter Summary ---
Author Organization [facility] Address [address] [place] [address] Care Team Providers Care Nitrating Acid Mixer Name Role Phone Unavailable Primary Care Provider Unavailabl e Reason for Visit * ReasonCommentsRoutine Visit Encounter Details DateTypeDepartmentCare Team (Latest Contact Info)Buuewcjltdu29/21/2025 2:20 PM EDTRoutine [facility] [address] [phone] Yousif Aparicio, [address] [place] [address] Third trimester ([facility]); 37 weeks gestation of ([facility]) Social History Tobacco UseTypesPacks/DayYears UsedDateSmoking Tobacco: NeverSmokeless Tobacco: NeverAlcohol UseStandard Drinks/WeekCommentsNever0 (1 standard drink = 0.6 oz pure alcohol)PHQ-2AnswerDate RecordedPatient Health Questionnaire-2 Score0 06/11/2025Estimated Date of FjqkgoqnNoeabxegOvm52/05/2025ased on UltrasoundSex and Gender InformationValueDate RecordedSex Assigned at BirthNot on fileLegal RcgUqvxeq24/15/2023 8:06 PM EDTGender IdentityNot on fileSexual OrientationNot on filedocumented as of this encounter Last Filed Vital Signs Vital SignReadingTime TakenCommentsBlood Guflqqyq778/6810/ 2:28 PM EDT Pulse--Temperature--Respiratory Rate--Oxygen Saturation--Inhaled Oxygen Concentration--Iemxym61.6 kg (199 lb 12.8 oz)07/07/2025 2:28 PM EDTHeight--Body Mass Index--documented in this encounter Progress Notes * Rajani Mabel, CLIENT OPERATIONS MANAGER - 07/07/2025 2:20 PM EDT Reason for [...] 06/30/2025 H/O pre-eclampsia in prior , currently ([facility]) 06/30/2025 Anemia 06/30/2025 Resolved Ambulatory Problems Diagnosis Date Noted No Resolved Ambulatory Problems Past Medical History: Diagnosis Date Anxiety Bipolar disorder ([facility]) Depression Fibromyalgia Gestational diabetes ([facility]) Insomnia Irritable bowel syndrome with constipation Opioid [place] Tobacco user HISTORY PAST MEDICAL HISTORY SOCIAL HISTORY Past Medical History: Diagnosis Date Anxiety Bipolar disorder ([facility]) Depression Fibromyalgia Gestational diabetes ([facility]) Insomnia Irritable bowel syndrome with constipation Opioid abuse [place] [place] Tobacco user Social History Tobacco Use Smoking [...] nursing note reviewed. Exam conducted with a irrigation foreman present. Vitals: There is no height or weight on file to calculate BMI. BP: 128/68 Patient's last menstrual period was 10/21/2024 (exact date). Assessment/Plan ICD-10-CM 1. Third trimester ([facility]) Z34.93 2. 37 weeks gestation of ([facility]) Z3A.37 POCT urinalysis dipstick manually resulted [...] on 07/15/25- inductionpaperwork signed and [facility]ed to [facility]. Orders Placed This Encounter Procedures POCT urinalysis dipstick manually resulted Follow Up: Patient is to return to office in 1 week for routine OB appointment. Documented by Rajani Monroe LPN on behalf of: Yousif Aparicio DO documented in this encounter Plan of Treatment Not on file documented as of this encounter Procedures Procedure NamePriorityDate/TimeAssociated DiagnosisCommentsPOCT URINALYSIS QAURCSDGYmfgcip35/21/2025 2:40 PM EDT 37 weeks gestation of ([facility]) documented in this encounter Results * [...] / LateralityCollection Method / VolumeCollection Time Received GyexOnlvz24/21/2025 2:40 PM EDT Narrative Authorizing ProviderResult TypeResult StatusCorey Markus DOPOINT OF CARE TEST ENTER/EDIT ORDERABLESFinal Result documented in this encounter Visit Diagnoses Diagnosis Third trimester ([facility]) state, incidental 37 weeks gestation of ([facility]) documented in this encounter
[2025-07-15] VITALS (67 sets, daily range): BP systolic 111–176; BP diastolic 58–107; PULSE 68–129; TEMP 36.2–37.2
--- OUTSIDE RECORDS SUMMARY | 2025-07-15 05:32 | XMS_ITS | CCD ---
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 sources)Urinary tract infectious disease; Translations: [Urinary tract infection, site not specified]Onset: [id number] Past or Other Problems Problem ClassificationProblemDateDocumented DateEpisodic/ChronicInflammatory diseases of female pelvic organs (3 sources)Acute vaginitis; Translations: [Acute vaginitis]Onset: 01-02-2019 29-61-8433EsrxljqtVcljy complications of (5 sources)Missed ; Translations: [MISSED ]Onset: 08-18-2022 EpisodicOther complications of (1 source)Other placental disorders, first trimester; Translations: [OTH PLACENTAL DISORDER FIRST TRI]Onset: 61-93-5835ImqwqdsrJppps female genital disorders (3 sources)Noninflammatory disorder of the vagina; Translations: [Other specified noninflammatory disorders ofvagina]Onset: 216981-97-4170Saashmdi Residual codes; unclassified (4 sources)Other specified postprocedural states; Translations: [OTH SPECIFIED POSTPROCEDURAL STATES]Onset: 78-57-8010DdbgmlvqZryckthq codes; unclassified (1 source)8 weeks gestation of ; Translations: [8 WEEKS GESTATION OF ]Onset: 59-39-2367OiozwizpJoqausfqftvy (1 source)COUGH, UNSPECIFIED; Translations: [COUGH, UNSPECIFIED]Onset: 13-28-5741QJJLYDU: Highlighted row has been ruled out!Unclassified (1 source)No known active jzdiltpe49-83-7948 Results Test NameValueInterpretationReference RangeFacilityTBH UA (CLEAN/CATCH) HOUSE ADMIN/MICRO IF IND.on 26-35-6991ZSCMBXIUI URINENegativeNEGATIVENOMS Healthcare BLOOD URINESMALLAbnormalNEGATIVENOMS HealthcareClarity (U)CLEARCLEARNOMS HealthcareColor (U)LT. YELLOWYELLOWNOMS HealthcareGLUCOSE URINE UANegative NEGATIVE mg/dLNOMS HealthcareInterpretation and review of laboratory results AbnormalNOMS HealthcareKetones Ql (U)NegativeNEGATIVE mg/dLNOTX Healthcare Leukocyte esterase Test strip Ql (U)NegativeNEGATIVENOMS HealthcareNITRITE URINE NegativeNEGATIVENOMS HealthcarepH (U)7.0 [pH]5.0 - 9.0NOMS HealthcarePROTEIN URINENegativeNEG/TRACE mg/dLNOTX HealthcareSPECIFIC GRAVITY URINE1.0151.005 - 1.025NOMS HealthcareURINE MICROSCOPIC INDICATEDYESNOTX HealthcareUROBILINOGEN URINE1.0 EU/dL0.2 - 1.0 EU/dLNOTX HealthcareCLINISYNCNOMS HealthcareUrinalysis macro (dipstick) panel (U)on 13-19-5928Vbtwnsbty, UANegativeNegative - 4(70) +++ mg/dLNOTX HealthcareBlood, UANegativeNegative - 50 Chriss/[facility] Healthcare Clarity, UAClearNOTX HealthcareColor, UAYellowNOTX HealthcareGlucose, UANegative Negative - 1999(110) ++++ mg/dLL[facility] HealthcareInterpretation and review of laboratory resultsAbnormalNOMS HealthcareKetones, UAPositiveNegative - 160(16) ++++ mg/dLLONE [facility] HealthcareLeukocytes, UANegativeNegative - 500+++ Leila/mcLLONE [facility]AK [facility]ITAL HealthcareNitrite, UANegativeNegative - PositiveNOTX HealthcarepH, UA6.05 - 9 NOMS HealthcareProtein, UATraceNegative - 2000(20) ++++ mg/dLNOTX HealthcareSpec Grav, UA1.0151 - 1.03NOTX HealthcareUrobilinogen, UA>=8.00.2 - 12 mg/dLNOCapital Region Medical CenterNOTX HealthcareUS OB LIMITED 1+ FETUSESon 80-65-0589GK OB LIMITED 1+ FETUSESFINDINGS: Comparison made with [...] Delivery: 07/22/25 Gestational Age as of 06/08/2025: 87y9nXzeyyuhoye macro (dipstick) panel (U)on 07-86-2409Jbeewrxza, UANegativeNegative - 4(70) +++ mg/dLNOMS HealthcareBlood, UANegativeNegative - 50 Chriss/mcLNOMS HealthcareClarity, UAClearNOMS Healthcare Color, UAYellowNOMS HealthcareGlucose, UANegativeNegative - 2000(110) ++++ mg/dL NOMS HealthcareInterpretation and review of laboratory resultsNormalNOMS HealthcareKetones, UANegativeNegative - 160(16) ++++ mg/dLNOMS Healthcare Leukocytes, UANegativeNegative - 500+++ Leila/mcLNOMS HealthcareNitrite, UA NegativeNegative - PositiveNOMS HealthcarepH, UA8.05 - 9NOMS HealthcareProtein, UANegativeNegative - 2000(20) ++++ mg/dLNOMS HealthcareSpec Grav, UA1.0101 - 1.03NOMS HealthcareUrobilinogen, UA1.00.2 - 12 mg/dLNOMS HealthcareNOMS HealthcareALL CBC WITH AUTO DIFFon 24-90-6992DXTFUDUWE ABSOLUTE XJYC2NTTE HealthcareBasophils/100 WBC (Bld)0.2 %0.2 - 2.0 %NOMS HealthcareEosinophils/100 WBC (Bld)0.3 %Low0.9 - 7.0 %NOMS HealthcareErythrocyte distribution width (RBC) [Ratio]24.9 %High11.0 - 15.0 %NOMS HealthcareHematocrit (Bld) [Volume fraction] 32.3 %Low36.0 - 48.0 %NOMS HealthcareHemoglobin (Bld) [Mass/Vol]10.5 g/dLLow12.0 - 16.0 g/dLNOMS HealthcareIMMATURE GRANULOCYTES ABS AUTO0.05HighNOMS Healthcare Immature granulocytes/100 WBC (Bld)0.6 %High0.0 - 0.5 %[facility] Healthcare Interpretation and review of laboratory resultsAbnormThomas Jefferson University Hospital LYMPHOCYTES ABSOLUTE AUTO1.3NOCapital Region Medical CenterLymphocytes/100 WBC (Bld)14 %Low20.5 - 60.0 %[facility]ullivanH (RBC) [Entitic mass]25.1 pgLow26.7 - 34.0 pgMissouri Baptist Hospital-SullivanHC (RBC) [Mass/Vol]32.5 g/dL29.9 - 35.2 g/dLMissouri Baptist Hospital-SullivanV (RBC) [Entitic vol]77.1 fLLow81.0 - 99.0 fLSaint Mary's Health CenterMONOCYTES ABSOLUTE AUTO0.7 [facility] CenterMonocytes/100 WBC (Bld)8.2 %1.7 - 12.0 %[facility] NEUTROPHILS ABSOLUTE AUTO6.8HighSaint Mary's Health CenterNeutrophils/100 WBC (Bld)76.7 % High43.0 - 75.0 %[facility] CenterPlatelet mean volume (Bld) [Entitic vol]10.9 fL 9.5 - 13.5 fLSaint Mary's Health CenterTBH EO #0NOMS Regional Medical CenterTBH DJE870HUBLCapital Region Medical CenterTB RBC4.19LowSaint Mary's Health CenterTB WBC8.9Saint [facility] Health CenterCLINISYNCNSalem Memorial District Hospital Urinalysis macro (dipstick) panel (U)on 72-68-3726Igsjmatkj, UANegativeNegative - 4(70) +++ mg/dLNOTX HealthcareBlood, UANegativeNegative - 50 Chriss/mcLNOTX HealthcareClarity, UAClearNOTX HealthcareColor, UAYellowNOCapital Region Medical CenterGlucose, UANegativeNegative - 1999(110) ++++ mg/dLL[facility] HealthcareInterpretation and review of laboratory resultsNormalSaint Mary's Health CenterKetones, UANegativeNegative - 160(16) ++++ mg/dLL[facility] HealthcareLeukocytes, UANegativeNegative - 500+++ Leila/mcL [facility] HealthcareNitrite, UANegativeNegative - PositiveNOTX HealthcarepH, UA85 - 9 NOM HealthcareProtein, UANegativeNegative - 2000(20) ++++ mg/dLL[facility] Healthcare Spec Grav, UA1.011 - 1.03NOCapital Region Medical CenterUrobilinogen, UA1.00.2 - 12 mg/dLDuke HealthOVA + PARASITE EXAMon 11-68-7871WPD + PARASITE EXAM Final report.[facility] HealthcareComment on above:These results were obtained using wet preparation(s) and trichrome stained smear. This test does not include testing for Cryptosporidium parvum, Cyclospora, or Microsporidia. RESULT 1Comment.[facility] HealthcareComment on above:No ova, cysts, or parasites seen. One negative specimen does not rule out the possibility of a parasitic infection. Performed at: [address] [id number] Rail Signal Worker: Justice Flor PhD, Phone: [phone] [facility] HOSPITALISYNewport Medical CenterUS OB FOLLOW UP TRANSABDOMINAL APPROACHon 23-80-2467RW OB FOLLOW UP TRANSABDOMINAL APPROACHFINDINGS: Comparison made [...] Delivery: 07/22/25 Gestational Age as of 05/06/2025: 38j8nRknvdbwjqd macro (dipstick) panel (U)on 20-00-4923Exesfxhpt, UANegativeNegative - 4(70) +++ mg/dLNOMS HealthcareBlood, UANegativeNegative - 50 Chriss/mcLNOMS HealthcareClarity, UAClearNOMS Healthcare Color, UAYellowNOMS HealthcareGlucose, UANegativeNegative - 1999(110) ++++ mg/dL NOMS HealthcareInterpretation and review of laboratory resultsNormalNOMS HealthcareKetones, UANegativeNegative - 160(16) ++++ mg/dLNOMS Healthcare Leukocytes, UANegativeNegative - 500+++ Leila/mcLNOMS HealthcareNitrite, UA NegativeNegative - PositiveNOMS HealthcarepH, UA85 - 9NOMS HealthcareProtein, UA NegativeNegative - 1999(20) ++++ mg/dLNOMS HealthcareSpec Grav, UA1.0051 - 1.03 NOMS HealthcareUrobilinogen, UA1.00.2 - 12 mg/dLNOTX HealthcareNOTX Healthcare GLUCOSE 1 HOURon 12-53-1770Iglgawe [Mass/Vol]121 mg/dLNINF - 130 mg/dLNOMS HealthcareCLINISYNCNOMS HealthcareUrinalysis macro (dipstick) panel (U)on 90-98-6255Lvpdoajir, UANegativeNegative - 4(70) +++ mg/dLNOMS HealthcareBlood, UAPositiveNegative [...] - 1.03NOMS HealthcareUrobilinogen, UA0.20.2 - 12 mg/dLNOMS [facility] HealthcareUrinalysis macro (dipstick) panel (U)on 78-46-8034Qkwpiydfk, UA NegativeNegative - 4(70) +++ mg/dLNOMS HealthcareBlood, UANegativeNegative - 50 Chriss/[facility] HealthcareClarity, UAClearNOMS HealthcareColor, UAYellowNOTX HealthcareGlucose, UANegativeNegative - 2000(110) ++++ mg/dLNOTX Healthcare Interpretation and review of laboratory resultsAbnormalNOTX HealthcareKetones, UANegativeNegative - 160(16) ++++ mg/dLLONE [facility] HealthcareLeukocytes, UANegative Negative - 500+++ Leila/[facility] HealthcareNitrite, UANegativeNegative - Positive NOMS HealthcarepH, UA85 - 9NOMS HealthcareProtein, UATraceNegative - 2000(20) ++++ mg/dLNOTX HealthcareSpec Grav, UA1.011 - 1.03NOTX HealthcareUrobilinogen, UA0.20.2 - 12 mg/dLNOSt. Louis Behavioral [facility] Institute HealthcareIGP,APTIMA HPV,AGE GDLNon 63-40-3534UKC GDLN ACOG TESTINGNote.[facility] HealthcareComment on above:TESTS RESULT FLAG UNITS REF RANGE LAB Clinician Provided Cytology Information Source.............[employer] Other.............. No. of containers..01 ThinPrep Vial Age Algo ACOG Keira... 30-65 01 FLAG LEGEND: L-Low Normal,H-High Normal,LL-Alert Low,HH-Alert High <-Panic Low,>-Panic High,A-Abnormal,AA-Critical Abnormal Performed at: 01 =[address] [id number] Jesi Kuhn MD, HPV APTIMANegativeNegativeNOMS HealthcareComment on above:This nucleic acid amplification test detects fourteen high- risk HPV types (16,18,31,33,35,39,45,51,52,56,58,59,66,68) without differentiation. Performed at: =[address] [id number] Rail Signal Worker: Jesi Kuhn MD, Phone: [phone] Performed at: [address] [id number] Rail Signal Worker: Jesi Kuhn MD, Phone: [phone] IGP, APTIMA HPV, RFX 16/18,45Note.NOMS HealthcareComment on above:TESTS RESULT FLAG UNITS REF RANGE LAB DIAGNOSIS: 02 NEGATIVE FOR INTRAEPITHELIAL LESION OR MALIGNANCY. Specimen adequacy: 02 Satisfactory for evaluation. No endocervical component is identified. Performed by: 02 Janie Almazan, Health Program Manager . 02 Note: Note 02 The Pap [...] Low,>-Panic High,A-Abnormal,AA-Critical Abnormal Performed at: [address] [phone] Jesi Kuhn MD, SPATULA-ALONE ENDOCERVIX CLINISYNCNOMS HealthcareRECURRENT VAGINITIS (HTRX)on 26-62-5495VMTOWEQTH VAGINAE 0NOMS HealthcareATOPOBIUM VAGINAENot detectedNOMS HealthcareBVAB 2,3 (BACTERIAL VAGINOSIS ASSOCIATED BACTERIA 2, 3); MOBILUNCUS KKS4UTWM HealthcareBVAB 2,3 (BACTERIAL VAGINOSIS ASSOCIATED BACTERIA 2, 3); MOBILUNCUS SPPNot detectedNOMS HealthcareCANDIDA ALBICANS, PARAPSILOSIS, [id number] HealthcareCANDIDA ALBICANS, PARAPSILOSIS, TROPICALISNot detectedNOMS HealthcareCANDIDA GLABRATA0 NOMS HealthcareCANDIDA GLABRATANot detectedNOMS HealthcareCANDIDA UJBSST0YUHJ HealthcareCANDIDA KRUSEINot detectedNOMS HealthcareCHLAMYDIA ONWESROOWUG4SUZS HealthcareCHLAMYDIA TRACHOMATISNot detectedNOMS HealthcareGARDNERELLA VAGINALIS0 NOMS HealthcareGARDNERELLA VAGINALISNot detectedNOMS HealthcareMEGASPHAERA (TYPES 1, 2)0NOMS HealthcareMEGASPHAERA (TYPES 1, 2)Not detectedNOMS Healthcare MYCOPLASMA UZNHZCMUDI6YDEO HealthcareMYCOPLASMA GENITALIUMNot detectedNOMS HealthcareNEISSERIA QKYWDFYMSJY8RCPK HealthcareNEISSERIA GONORRHOEAENot detected NOMS HealthcareTRICHOMONAS OPFHKZUHI0JVFB HealthcareTRICHOMONAS VAGINALISNot detectedNOMS HealthcareNOMS HealthcareUS OB 14+ WEEKS ANATOMY SCANon 03-11-2025 US OB 14+ WEEKS ANATOMY SCANFINDINGS: A single, [...] JacksonNot AvailableComment on above:Order Comment: US OB ANATOMY SINGLE W US OB CERVICAL LENGTH Estimated Date of Delivery: 07/22/25 Gestational Age as of 03/11/2025: 01h2dIcbuhfmrmu macro (dipstick) panel (U)on 75-12-2461Tqjjzucen, UANegativeNegative - 4(70) +++ mg/dLNOMS HealthcareBlood, UANegativeNegative [...] - 1.03 NOMS HealthcareUrobilinogen, UA0.20.2 - 12 mg/dLNOCapital Region Medical CenterNOTX Healthcare Urinalysis macro (dipstick) panel (U)on 28-07-7527Yfmubmcev, UANegativeNegative - 4(70) +++ mg/dLNOMS HealthcareBlood, UAPositiveNegative - 50 Chriss/[facility] HospitalNOTX HealthcareComment on above:largeClarity, UACloudyNOMS HealthcareColor, UAYellow [facility] HealthcareGlucose, UANegativeNegative - 2000(110) ++++ mg/dLNOTX Healthcare Interpretation and review of laboratory resultsAbnormFulton County Health Center HealthcareKetones, UANegativeNegative - 160(16) ++++ mg/dLLONE [facility] HealthcareLeukocytes, UATrace Negative - 500+++ Leila/[facility] HealthcareNitrite, UANegativeNegative - Positive NOMS HealthcarepH, UA7.55 - 9NOMS HealthcareProtein, UATraceNegative - 2000(20) ++++ mg/dLNOTX HealthcareSpec Grav, UA1.021 - 1.03NOTX HealthcareUrobilinogen, UA1.00.2 - 12 mg/dLNOSt. Louis [facility]al [facility] Institute HealthcareBOX TESTon 67-75-5634FSH TEST SENT OUTAlta View HospitalXuhkfqeumxTLZ9LMLWWOJKC YwopadryiwZOK063/23/2025NOCapital Region Medical CenterUNITY BOX CLINISYNCSaint Mary's Health CenterHCG ( test) Ql (U)on 61-23-2592Ohut Test, Ur PositiveNegativeLONE PEAK HOSPITAL HealthcareNo Panel Informationon 00-42-1290Wtcrlighygvdtz and review of laboratory resultsAbMyMichigan Medical Center Alpena HealthcareUS OB TRANSVAGINALon 75-01-7102BC OB TRANSVAGINALEXAM: US OB TRANSVAGINAL HISTORY: Dating. [...] II, MD, PHD at 08-Jan-2025 02:06:49 PM [facility] TeleradiologyNormalNot AvailableComment on above:Order Comment: US OB TRANSVAGINAL No LMP recorded.Urinalysis macro (dipstick) panel (U)on 54-56-6756Pkgfltfcw, UA NegativeNegative - 4(70) +++ mg/dLNOMS HealthcareBlood, [...] Serum or PlasmaOrdered By: Dane Erwin on 60-06-8906HEQ [Catalytic activity/Vol]Alanine aminotransferase [Enzymatic activity/volume] in Serum or PlasmaHigh7-52[facility] Albumin [Mass/volume] in Serum or Plasma by Bromocresol green (BCG) dye binding methoOrdered By: Dane Erwin on 14-43-9620Ivnkodt BCG dye [Mass/Vol] Albumin [Mass/volume] in Serum or Plasma by Bromocresol green (BCG) dye binding metho3.5-5.7FCleveland Clinic Medina HospitalAlkaline phosphatase [Enzymatic activity/volume] in Serum or PlasmaOrdered By: Dane Erwin on 80-74-9036YWF [Catalytic activity/Vol]Alkaline phosphatase [Enzymatic activity/volume] in Serum or RllrblQotr27-296PikvzhpvsPomerene Hospital Aspartate aminotransferase [Enzymatic activity/volume] in Serum or PlasmaOrdered By: Dane Erwin on 15-61-8256WEY [Catalytic activity/Vol]Aspartate aminotransferase [Enzymatic activity/volume] in Serum or Vhvvob11-61PdvmyqjuoPomerene HospitalBilirubin.total [Mass/volume] in Serum or PlasmaOrdered By: Dane Erwin on 45-44-5052Nhfhrbxzi [Mass/Vol]Bilirubin.total [Mass/volume] in Serum or Plasma0.3-1.0[facility] HospitalCalcium [Mass/volume] in Serum or PlasmaOrdered By: Dane Erwin on 10-19-2024 Calcium [Mass/Vol]Calcium [Mass/volume] in Serum or Plasma8.6-10.3FCleveland Clinic Medina HospitalCarbon dioxide, total [Moles/volume] in Serum or Plasma Ordered By: Dane Erwin on 05-59-3345XM6 [Moles/Vol]Carbon dioxide, total [Moles/volume] in Serum or LdxknfNyfx52.0-31.0[facility] HospitalChloride [Moles/volume] in Serum or PlasmaOrdered By: Dane Erwin on 16-99-1151Fugzozak [Moles/Vol]Chloride [Moles/volume] in Serum or Etjybr78-059YexyhwhqhPomerene HospitalComprehensive Metabolic Panelon 11-32-8542Sumxajh [Mass/Vol]4.0 g/dLNormal3.5-5.7[facility] Comment on above:Performed By: #### CMP #### [place] [address] USAAlbumin/Globulin [Mass ratio]1.7 {ratio}NormalThe Critical Access Hospital Physician GroupComment on above:Performed By: #### CMP #### [facility] [address] [place] [address] USAALP [Catalytic activity/Vol]117 U/BFanw83-052Vsr [facility] Physician GroupComment on above:Performed By: #### CMP #### [place] [address] USAALT [Catalytic activity/Vol]131 U/LHigh7-52The [facility] Hospital Physician GroupComment on above:Performed By: #### CMP #### [place] [address] USAAnion gap [Moles/Vol]9.1 mmol/LNormal6.0-15.0The [facility] Hospital Physician GroupComment on above:Performed By: #### CMP #### [place] [address] USAAST [Catalytic activity/Vol]34 U/LQoverf02-59Gzv [facility] Physician GroupComment on above:Performed By: #### CMP #### [facility] [address] [place] [address] USABilirubin [Mass/Vol]0.5 mg/dLNormal0.3-1.0The [facility] Hospital Physician GroupComment on above:Performed By: #### CMP #### [facility] [address] [place] [address] USACalcium [Mass/Vol]9.8 mg/dLNormal8.6-10.3The [facility] Hospital Physician GroupComment on above:Performed By: #### CMP #### [place] [address] USAChloride [Moles/Vol]101 mmol/OSskiaq65-961Gta [facility] Physician GroupComment on above:Performed By: #### CMP #### [facility] [address] [place] [address] USACO2 [Moles/Vol]33.1 mmol/LHigh21.0-31.0The [facility] Hospital Physician GroupComment on above:Performed By: #### CMP #### [facility] [address] [place] [address] USACreatinine [Mass/Vol]0.74 mg/dLNormal0.60-1.20The [facility] Hospital Physician GroupComment on above:Performed By: #### CMP #### [facility] [address] [place] [address] USACreatinine Clr Calc Vboizdpg50.70NormJohns Hopkins All Children's Hospital Physician GroupComment on above:Result Comment: PERFORMED BY: [place] [address] PATHOLOGIST QUALITY CONTROL ASSISTANT MARQUITA BOLAÑOS M.D.Performed By: #### CMP #### [place] [address] USAGFR/1.73 sq M.predicted MDRD (S/P/Bld) [Vol rate/Area] mL/min/{1.73_m2}NormalThe [facility] Access Hospital Physician GroupComment on above:Performed By: #### CMP #### [place] [address] USAGlobulin (S) [Mass/Vol]2.4 g/dLLakeland Regional Health Medical Center Physician GroupComment on above:Performed By: #### CMP #### [place] [address] USAGlucose [Mass/Vol]67 mg/lIZoo40-966Myl [facility] Physician GroupComment on above:Result Comment: Random Glucose Reference Range is dependent on time and content of last meal. Glucose of more than 200 mg/dL in a nonstressed, ambulatory subject supports the diagnosis of Diabetes Mellitus. ADA recommended reference rangePerformed By: #### CMP #### [place] [address] USAPotassium [Moles/Vol]4.2 mmol/LNormal3.5-5.1The [facility] Hospital Physician GroupComment on above:Performed By: #### CMP #### [facility] [address] [place] [address] USAProtein [Mass/Vol]6.4 g/dLNormal6.4-8.9The [facility] Physician [facility] HospitalComment on above:Performed By: #### CMP #### [facility] [address] [place] [address] USASodium [Moles/Vol]139 mmol/WCqkcic445-067Tkq [facility] Physician GroupComment on above:Performed By: #### CMP #### [facility] [address] [place] [address] USAUrea nitrogen [Mass/Vol]17 mg/dLNormal7-25The [facility] Hospital Physician GroupComment on above:Performed By: #### CMP #### [facility] [address] [place] [address] USACreatinine [Mass/volume] in Serum or PlasmaOrdered By: Dane Erwin on 26-93-8117Vukpoptlyq [Mass/Vol]Creatinine [Mass/volume] in Serum or Plasma0.60-1.20P[facility] HospitalGlobulin Calc (S) [Mass/Vol]Ordered By: Dane Erwin on 00-19-6292Vscxpsok (S) [Mass/Vol] Serum globulin measurement by calculation (mass/volume)[facility] HospitalGlucose [Mass/volume] in Serum or PlasmaOrdered By: Dane Erwin on 92-37-3309Huqdxau [Mass/Vol]Glucose [Mass/volume] in Serum or DlomhjJth35-169DyrgyuumsPomerene HospitalComment on above:ADA recommended reference rangeRandom Glucose Reference Range is dependent on time and content of last meal. Glucose of more than 200 mg/dL in a nonstressed, ambulatory subject supports the diagnosisof Diabetes Mellitus.No Panel InformationOrdered By: Dane Erwin on 16-75-5557Fjwlflqjb GFR (CKD-EPI)> 60.0 mL/Min [facility] CenterPharmacy Creatinine Clearance (Chem98.70 [facility] HospitalPotassium [Moles/volume] in Serum or Plasma Ordered By: Dane Erwin on 33-14-0992Xjpgghyvu [Moles/Vol]Potassium [Moles/volume] in Serum or Plasma3.5-5.1FCleveland Clinic Medina HospitalProtein [Mass/volume] in Serum or PlasmaOrdered By: Dane Erwin on 10-19-2024 Protein [Mass/Vol]Protein [Mass/volume] in Serum or Plasma6.4-8.9OhioHealth Berger Hospitalerum or plasma albumin/globulin mass ratioOrdered By: Dane Erwin on 46-87-3827Hslfxkj/Globulin [Mass ratio]Serum or plasma albumin/globulin mass ratioOhioHealth Berger Hospitalerum or plasma anion gap determinationOrdered By: Dane Erwin on 62-50-1077Nobxg gap [Moles/Vol]Serum or plasma anion gap determination6.0-15.0Ohio[facility] Berger Hospitalodium [Moles/volume] in Serum or PlasmaOrdered By: Dane Erwin on 49-94-9292Emtzig [Moles/Vol]Sodium [Moles/volume] in Serum or Sobcju507-071EcfpsiwvpPomerene HospitalUrea nitrogen [Mass/volume] in Serum or PlasmaOrdered By: Dane Erwin on 57-83-1419Pqyb nitrogen [Mass/Vol]Urea nitrogen [Mass/volume] in Serum or Plasma7-25[facility] HospitalCholesterol [Mass/volume] in Serum or PlasmaOrdered By: Dane Erwin on 58-41-7254Jvyqprirjbq [Mass/Vol]Cholesterol [Mass/volume] in Serum or RgqcoeSre535-660GbxjbswdjPomerene Hospital Comment on above:Chol less than 200 mg/dl low riskChol 201-239 mg/dl borderline riskChol 240 mg/dl and greater high riskCholesterol in HDL [Mass/volume] in Serum or PlasmaOrdered By: Dane Erwin on 39-08-5949Dnqdfltazmb in HDL [Mass/Vol]Serum or plasma high density lipoprotein (HDL) cholesterol sxdevvlxpju84-74NibwemixzPomerene HospitalComment on above:HDL CHOL ATP- III CLASSIFICATION Cardiovascular RiskHDL > or equal to 60 mg/dL LOWHDL < 40 mg/dL HIGHCholesterol in LDL Calc [Mass/Vol]Ordered By: Dane Erwin on 92-54-2907Mycgyhlcflx in LDL [Mass/Vol]Cholesterol in LDL [Mass/volume] in Serum or Plasma by calculation0-100P[facility] HospitalComment on above:LDL ATP III CLASSIFICATIONLDL less than 100 mg/dL OptimalLDL 100-129 mg/dL Near or above cewgwmfJFO628-761 mg/dL Borderline highLDL 160-189 mg/dL HighLDL greater than 189 mg/dL Very highCholesterol in VLDL Calc [Mass/Vol]Ordered By: Dane Erwin on 12-54-7175Xbrqolstomd in VLDL [Mass/Vol]Cholesterol in VLDL [Mass/volume] in Serum or Plasma by calculationPomerene HospitalLipid Panelon 16-03-4907Plsitmexvyu [Mass/Vol]115 mg/kDHyj673-473Pnq [facility] Physician GroupComment on above:Result Comment: Chol less than 200 mg/dl low risk Chol 201-239 mg/dl borderline risk Chol 240 mg/dl and greater high riskPerformed By: #### URDS #### [facility] [address] [place] [address] USACholesterol in HDL [Mass/Vol]36 mg/dDTqoade06-56Qbh [facility] Physician GroupComment on above:Result Comment: HDL CHOL ATP-III CLASSIFICATION Cardiovascular Risk HDL > or equal to 60 mg/dL LOW HDL < 40 mg/dL HIGHPerformed By: #### URDS #### [facility] [address] [place] [address] USACholesterol.total/Cholesterol in HDL [Mass ratio]3.2 {ratio}Normal<5.0The [facility]ianney HospitalComment on above:Performed By: #### URDS #### [facility] [address] [place] [address] USALDL Cholesterol,Dlimkpygsg90 mg/dLNormal0-100The Critical Access Hospital Physician GroupComment on above:Result Comment: LDL ATP III CLASSIFICATION LDL less than 100 mg/dL Optimal LDL 100-129 mg/dL Near or above optimal LDL 130-159 mg/dL Borderline high LDL 160-189 mg/dL High LDL greater than 189 mg/dL Very highPerformed By: #### URDS #### [facility] [address] [place] [address] USATriglyceride w/Wnsobl052 mg/dLNormal0-149The [facility] Hospital Physician GroupComment on above:Result Comment: TRIG ATP III CLASSIFICATION TRIG less than 150 mg/dL Normal TRIG 150-199 mg/dL Borderline high TRIG 200-500 mg/dL High TRIG greater than 500 mg/dL Very high Standard traceable to the Center for Disease Conrtrol and Prevention (CDC) test method.Performed By: #### URDS #### [facility] [address] [place] [id number] USAVLDL SSVELHNHXJS69 mg/dLNormalThe Critical Access Hospital Physician GroupComment on above:Performed By: #### URDS #### [facility] [address] [id number] USASerum or plasma total cholesterol/high density lipoprotein (HDL) cholesterol mass ratOrdered By: Dane Erwin on 10-18-2024 Cholesterol.total/Cholesterol in HDL [Mass ratio]Serum or plasma total cholesterol/high density lipoprotein (HDL) cholesterol mass rat<5.0Pomerene HospitalThyroid Stim Hormone w/Rflxon 49-77-5453Ywmpcvt Stim Hormone w/Rflx2.83 u[iU]/mLNormal0.45-5.33The Critical Access Hospital Physician GroupComment on above:Performed By: #### URDS #### [address] [address] USAThyrotropin [Units/volume] in Serum or PlasmaOrdered By: Dane Erwin on 03-43-0459CBK QnThyrotropin [Units/volume] in Serum or Plasma0.45-5.33Pomerene HospitalTriglyceride [Mass/volume] in Serum or PlasmaOrdered By: Dane Erwin on 75-63-8043Vzdawnmnebng [Mass/Vol]Triglyceride [Mass/volume] in Serum or Plasma0-149Pomerene HospitalComment on above:TRIG ATP III CLASSIFICATIONTRIG less than 150 mg/dL NormalTRIG 150-199 mg/dL Borderline highTRIG 200-500 mg/dL High TRIG greater than 500 mg/dL Very highStandard traceable to the Center for Disease Co nrtrol and Prevention ([facility]) test method.Vitamin D 25 Hydroxy Totalon 10-18-2024 Vitamin D 25 Hydroxy Total10.8 ng/tPXrs57-760Vfw [facility] Group Comment on above:Result Comment: VITAMIN D STATUS 25(OH)VITAMIN D RANGE (ng/mL) Deficient <20 Insufficient 20 to <30 Sufficient 30 to 100 Reference: Sari Taylor, Mayito SNYDER, et al. Evaluation,treatment, and prevention of vitamin D deficiency; an Endocrine Society clinical practice guideline. JCEM. 2010; 96(7):1911-30. PERFORMED BY: [place] [address] PATHOLOGIST QUALITY CONTROL ASSISTANT MARQUITA BOLAÑOS M.D.Performed By: #### URDS #### [facility] [address] [place], [place] [address]Vitamin D+Metabolites [Mass/volume] in Serum or Plasma Ordered By: Dane Erwin on 35-95-0056Pngogns D+Metabolites [Mass/Vol] Vitamin D+Metabolites [Mass/volume] in Serum or VzgqpwJaq60-530KjsvisuawPomerene HospitalComment on above:VITAMIN D STATUS 25(OH)VITAMIN D RANGE (ng/mL) Deficient <20 Insufficient 20 to <15Cunmjhtnbf41 to 100Reference: Sari Taylor, Mayito SNYDER, et al. Evaluation,treatment, and prevention of vitamin D deficiency; an Endocrine Society clinical practice guideline. JCEM. 2010; 96(7):1911-.LIZBETH Antinuclear Antibodieson 44-10-8303Mmpvoxmxeru Abs, IFAPositiveCritically abnormal.The Critical Access Hospital Physician GroupComment on above:Result Comment: Negative <1:80 Borderline 1:80 Positive >1:80Performed By: #### URDS #### [facility] [address] [place] [address] Delvin SwainommentNormal.The Critical Access Hospital Physician GroupComment on above:Result Comment: Pattern Potential Disease Association Homogeneous Systemic Lupus Erythematosus, Drug Induced Systemic Lupus Erythematosus, Chronic Autoimmune hepatitis, Juvenile Idiopathic Arthritis Speckled Sjogren Syndrome, Systemic Lupus Erythematosus, Subacute Cutaneous Lupus, Lupus, Congenital Heart Block, Mixed Connective Tissue Disease, Scleroderma-diffuse, Scleroderma-Autoimmune Myositis Overlap Syndrome, Systemic Lupus Xotxdwfktwcrl-Dsuewxnbehh-Xahpcvtpyn Myositis Overlap Syndrome, Systemic Autoimmune Rheumatic Disease, [...] Cytopenias, Linear Scleroderma, Antiphospholipid Syndrome Performed at: [facility] [address] [id number] Rail Signal Worker: Justice Flor PhD, Phone: [phone] PERFORMED BY: [place] [address] PATHOLOGIST QUALITY CONTROL ASSISTANT MARQUITA BOLAÑOS M.D.Performed By: #### URDS #### [place] [address] USASpeckled Ilkpbpr4Kfks.The Critical Access Hospital Physician GroupComment on above:Result Comment: Dense Fine Speckled pattern is noted. This pattern suggests the presence of DFS70 antibody which has a low prevalence in systemic autoimmune rheumatic diseases. ICAP nomenclature: AC-2,4,5,29Performed By: #### URDS #### [place] [address] USAAlanine aminotransferase [Enzymatic activity/volume] in Serum or PlasmaOrdered By: Leola Smith on 14-36-2114GTT [Catalytic activity/Vol]Alanine aminotransferase [Enzymatic activity/volume] in Serum or PlasmaFairmont Regional Medical Center7-52Pomerene HospitalAlbumin [Mass/volume] in Serum or Plasma by Bromocresol green (BCG) dye binding methoOrdered By: Leola Smith on 35-59-0770Qibjadd BCG dye [Mass/Vol]Albumin [Mass/volume] in Serum or Plasma by Bromocresol green (BCG) dye binding methoLow3.5-5.7FCleveland Clinic Medina HospitalAlkaline phosphatase [Enzymatic activity/volume] in Serum or PlasmaOrdered By: Leola Smith on 22-06-6723QXX [Catalytic activity/Vol]Alkaline phosphatase [Enzymatic activity/volume] in Serum or HftzfgGglq67-862XgkkrqkshPomerene HospitalAspartate aminotransferase [Enzymatic activity/volume] in Serum or PlasmaOrdered By: Leola Smith on 93-74-3386NCF [Catalytic activity/Vol] Aspartate aminotransferase [Enzymatic activity/volume] in Serum or Duapci52-27 Pomerene HospitalBasophils Auto (Bld) [#/Vol]Ordered By: Leola Smith on 76-53-0580Jissescvi (Bld) [#/Vol]Automated basophil count0.0-0.2 Pomerene HospitalBasophils/100 WBC Auto (Bld)Ordered By: Leola Smith on 06-59-5037Dwuvlzpxv/100 WBC (Bld)Automated basophil %.Pomerene HospitalBilirubin.total [Mass/volume] in Serum or PlasmaOrdered By: Leola Smith on 44-26-4743Wluplaqhl [Mass/Vol]Bilirubin.total [Mass/volume] in Serum or Plasma0.3-1.0Pomerene HospitalCalcium [Mass/volume] in Serum or PlasmaOrdered By: Leola Smith on 97-45-3787Qdmclnp [Mass/Vol] Calcium [Mass/volume] in Serum or PlasmaLow8.6-10.3FCleveland Clinic Medina HospitalCarbon dioxide, total [Moles/volume] in Serum or PlasmaOrdered By: Leola Smith on 04-89-9437DG9 [Moles/Vol]Carbon dioxide, total [Moles/volume] in Serum or Jzzlbs41.0-31.0Pome[facility] HospitalChloride [Moles/volume] in Serum or PlasmaOrdered By: Leola Smith on 51-28-4116Rwtixvzo [Moles/Vol] Chloride [Moles/volume] in Serum or MxaokhPrlu90-089OydzstcyxPomerene HospitalComplete Blood Count Auto Diffon 77-43-9544Nizsapfmv (Bld) [#/Vol]0.0 10*3/uLNormal0.0-0.2The Critical Access Hospital Physician GroupComment on above:Result Comment: PERFORMED BY: [facility] [address] [place] [address] PATHOLOGIST QUALITY CONTROL ASSISTANT MARQUITA BOLAÑOS M.D.Performed By: #### CMP, CBC #### [place] [address] USABasophils/100 WBC (Bld)0.5 %Normal.The Critical Access Hospital Physician GroupComment on above:Performed By: #### CMP, CBC #### [place] [address] USAEosinophils (Bld) [#/Vol]0.1 10*3/uLNormal0.0-0.45The Critical Access Hospital Physician GroupComment on above:Performed By: #### CMP, CBC #### [place] [address] USAEosinophils/100 WBC (Bld)1.2 %Normal.The Critical Access Hospital Physician GroupComment on above:Performed By: #### CMP, CBC #### [place] [address] USAErythrocyte distribution width (RBC) [Ratio]17.3 %High 11.9-15.3The Critical Access Hospital Physician GroupComment on above:Performed By: #### CMP, CBC #### [place] [address] USAHematocrit (Bld) [Volume fraction]31.1 %Low34.0-46.4The Critical Access Hospital Physician GroupComment on above:Performed By: #### CMP, CBC #### [place] [address] USAHemoglobin (Bld) [Mass/Vol]10.4 g/dLLow11.8-15.4The Critical Access Hospital Physician GroupComment on above:Performed By: #### CMP, CBC #### [place] [address] USALymphocytes (Bld) [#/Vol]2.1 10*3/uLNormal1.00-4.8The Critical Access Hospital Physician GroupComment on above:Performed By: #### CMP, CBC #### [address] [place] [address] USALymphocytes/100 WBC (Bld)49.2 %Normal.The Critical Access Hospital Physician GroupComment on above:Performed By: #### CMP, CBC #### [place] [address] USAH (RBC) [Entitic mass]26.7 beCnpbdz83.7-34.3The Critical Access Hospital Physician GroupComment on above:Performed By: #### CMP, CBC #### [place] [address] USAV (RBC) [Entitic vol]79.9 gZKiz22-330Znd Critical Access Hospital Physician GroupComment on above:Performed By: #### CMP, CBC #### [place] [address] USAMean Corpuscular HGB Conc33.4 g/vYGknakw91.0-35.0The Critical Access Hospital Physician GroupComment on above:Performed By: #### CMP, CBC #### [place] [address] USAMonocytes (Bld) [#/Vol]0.3 10*3/uLNormal0.0-0.8The Critical Access Hospital Physician GroupComment on above:Performed By: #### CMP, CBC #### [place] [address] USAMonocytes/100 WBC (Bld)7.7 %Normal.The Critical Access Hospital Physician GroupComment on above:Performed By: #### CMP, CBC #### [place] [address] USANeutrophils (Bld) [#/Vol]1.8 10*3/uLNormal1.8-7.7The Critical Access Hospital Physician GroupComment on above:Performed By: #### CMP, CBC #### [place] [address] USANeutrophils/100 WBC (Bld)41.4 %Normal.The Critical Access Hospital Physician GroupComment on above:Performed By: #### CMP, CBC #### [address] [place] [address] USANRBC%0.1 /100{WBC}Normal0-0.5The [facility] Group Comment on above:Performed By: #### CMP, CBC #### [facility] [address] [place] [address] USAPlatelet mean volume (Bld) [Entitic vol]9.2 fLNormal 6.3-10.7The Critical Access Hospital Physician GroupComment on above:Performed By: #### CMP, CBC #### [facility] [address] [place] [address] USAPlatelets (Bld) [#/Vol]190 10*3/lFAtfgmt104-167Yxg Critical Access Hospital Physician GroupComment on above:Performed By: #### CMP, CBC #### [place] [address] USARBC (Bld) [#/Vol]3.89 10*6/uLNormal3.60-5.00The Critical Access Hospital Physician GroupComment on above:Performed By: #### CMP, CBC #### [place] [address] USAWBC (Bld) [#/Vol]4.3 10*3/uLNormal3.8-11.6The Critical Access Hospital Physician GroupComment on above:Performed By: #### CMP, CBC #### [place] [address] USAComprehensive Metabolic Panelon 69-23-1866Rauwgqf [Mass/Vol]3.3 g/dLLow3.5-5.7The Critical Access Hospital Physician GroupComment on above: Performed By: #### CMP, CBC #### [place] [address] USAAlbumin/Globulin [Mass ratio]1.7 {ratio}NormalThe Critical Access Hospital Physician GroupComment on above:Performed By: #### CMP, CBC #### [place] [address] USAALP [Catalytic activity/Vol]125 U/PHyti12-519Nnj Critical Access Hospital Physician GroupComment on above:Performed By: #### CMP, CBC #### [facility] [address] [place] [address] USAALT [Catalytic activity/Vol]191 U/LHigh7-52The Critical Access Hospital Physician GroupComment on above:Performed By: #### CMP, CBC #### [facility] [address] [place] [address] USAAnion gap [Moles/Vol]6.7 mmol/LNormal6.0-15.0The Critical Access Hospital Physician GroupComment on above:Performed By: #### CMP, CBC #### [facility] [address] [place] [address] USAAST [Catalytic activity/Vol]29 U/ZPwxfzg69-48Nxp Critical Access Hospital Physician GroupComment on above:Performed By: #### CMP, CBC #### [facility] [address] [place] [address] USABilirubin [Mass/Vol]0.5 mg/dLNormal0.3-1.0The Critical Access Hospital Physician GroupComment on above:Performed By: #### CMP, CBC #### [facility] [address] [place] [address] USACalcium [Mass/Vol]7.9 mg/dLLow8.6-10.3The Critical Access Hospital Physician GroupComment on above:Performed By: #### CMP, CBC #### [facility] [address] [place] [address] USAChloride [Moles/Vol]110 mmol/KBcxw39-190Hsk Critical Access Hospital Physician GroupComment on above:Performed By: #### CMP, CBC #### [facility] [address] [place] [address] USACO2 [Moles/Vol]26.6 mmol/PQmrhyf56.0-31.0The Critical Access Hospital Physician GroupComment on above:Performed By: #### CMP, CBC #### [facility] [address] [place] [address] USACreatinine [Mass/Vol]0.58 mg/dLLow0.60-1.20The Critical Access Hospital Physician GroupComment on above:Performed By: #### CMP, CBC #### [place] [address] USACreatinine Clr Calc Zlmzbtvm181.83NoFormerly [facility], later [facility]re Physician GroupComment on above:Result Comment: PERFORMED BY: [place] [address] PATHOLOGIST QUALITY CONTROL ASSISTANT MARQUITA BOLAÑOS M.D.Performed By: #### CMP, CBC #### [place] [address] USAGFR/1.73 sq M.predicted MDRD (S/P/Bld) [Vol rate/Area] mL/min/{1.73_m2}NormalThe Critical Access Hospital Physician GroupComment on above:Performed By: #### CMP, CBC #### [place] [address] USAGlobulin (S) [Mass/Vol]2.0 g/dLLakeland Regional Health Medical Center Physician GroupComment on above:Performed By: #### CMP, CBC #### [place] [address] USAGlucose [Mass/Vol]104 mg/zCRzoj06-800Mge Critical Access Hospital Physician GroupComment on above:Result Comment: Random Glucose Reference Range is dependent on time and content of last meal. Glucose of more than 200 mg/dL in a nonstressed, ambulatory subject supports the diagnosis of Diabetes Mellitus. ADA recommended reference rangePerformed By: #### CMP, CBC #### [place] [address] USAPotassium [Moles/Vol]3.3 mmol/LLow3.5-5.1The Critical Access Hospital Physician GroupComment on above:Performed By: #### CMP, CBC #### [place] [address] USAProtein [Mass/Vol]5.3 g/dLLow6.4-8.9The Critical Access Hospital Physician GroupComment on above:Performed By: #### CMP, CBC #### [place] [address] USASodium [Moles/Vol]140 mmol/OJjxnmg961-529Ppb Critical Access Hospital Physician GroupComment on above:Performed By: #### CMP, CBC #### [facility] [address] [place] [address] USAUrea nitrogen [Mass/Vol]9 mg/dLNormale Critical Access Hospital Physician GroupComment on above:Performed By: #### CMP, CBC #### [facility] [address] [place] [address] USACreatine Kinaseon 41-52-0721FH [Catalytic activity/Vol]51 U/PGkvfnz47-040Ctq [facility] Physician GroupComment on above:Result Comment: PERFORMED BY: [place] [address] PATHOLOGIST QUALITY CONTROL ASSISTANT MARQUITA BOLAÑOS M.D.Performed By: #### CK #### [facility] [address] [place] [address] USACreatine kinase [Enzymatic activity/volume] in Serum or PlasmaOrdered By: Leola Smith on 51-15-0070AE [Catalytic activity/Vol]Creatine kinase [Enzymatic activity/volume] in Serum or Fdkxdb23-921TwrcpshgiPomerene HospitalCreatinine [Mass/volume] in Serum or PlasmaOrdered By: Leola Smith on 17-52-6903Buxlmesslc [Mass/Vol]Creatinine [Mass/volume] in Serum or PlasmaLow0.60-1.20Pomerene HospitalECG 12 lead ECGon 10-17-2024 ECG 12 lead ECGPARKVIEW [facility]ALTH [facility] [place] [address] [place] [address] Electrocardiograph Report Signed Patient: Noe Duran MR#: [id number] : 1995 Acct:[id number] Age/Sex: 29 / F ADM Date: 10/15/24 Loc: Room: [address] [place] [address] Type: ADM IN Attending Dr: Leola Smith [...] rhythm Normal ECG Confirmed by Lina Meredith ([id number]) on 10/17/2024 1:51:09 PM Referred By: Electronically Signed By: Lina Meredith Transcribed By: MUS Signed By Lina Meredith MD 5 [address] Physician GroupEosinophils Auto (Bld) [#/Vol]Ordered By: Leola Smith on 86-38-2172Fqgltxnchjj (Bld) [#/Vol]Automated eosinophil count0.0-0.45Pomerene HospitalEosinophils/100 WBC Auto (Bld) Ordered By: Leola Smith on 87-70-3680Saygohmatii/100 WBC (Bld)Automated eosinophil %.Pomerene HospitalErythrocyte distribution width Auto (RBC) [Ratio]Ordered By: Leola Smith on 39-86-9506Skthdisnllr distribution width (RBC) [Ratio]Erythrocyte distribution width [Ratio] by Automated paxhaHrso62.9-15.3FCleveland Clinic Medina HospitalGlobulin Calc (S) [Mass/Vol]Ordered By: Leola Smith on 53-73-5336Vxezpvwp (S) [Mass/Vol]Serum globulin measurement by calculation (mass/volume)Pomerene HospitalGlucose [Mass/volume] in Serum or PlasmaOrdered By: Leola Smith on 76-95-3240Jqlxigs [Mass/Vol]Glucose [Mass/volume] in Serum or ZcvnrlJtqi31-196 Pomerene HospitalComment on above:ADA recommended reference rangeRandom Glucose Reference Range is dependent on time and content of last meal. Glucose of more than 200 mg/dL in a nonstressed, ambulatory subject supports the diagnosisof Diabetes Mellitus.HIV 1/O/2 Antigen/Antibodyon 65-02-4610TPV Screen 4th GenerationNon-ReactiveNormalNon ReactiveThe Critical Access Hospital Physician GroupComment on above:Result Comment: HIV-1/HIV-2 antibodies and HIV-1 p24 antigen were NOT detected. There is no laboratory evidence of HIV infection. HIV Negative Performed at: [address], [place] [id number] Rail Signal Worker: Justice Flor PhD, Phone: [phone] By: #### RPR W RFX, HIV SCREEN #### [facility] ,HIV antibody and antigen panelOrdered By: Leola Smith on 32-90-7650WQW 1+2 Ab+HIV1 p24 Ag IA QlHIV 1 and HIV-2 antibody assay with HIV-1 p24 antigen detectionNon ReactivePomerene HospitalComment on above: HIV-1/HIV-2 antibodies and HIV-1 p24 antigen were NOTdetected. There is no laboratory evidence of HIV infection.HIV NegativePerformed at: [facility] [address] [id number] Director: Justice Flor PhD, Phone: [phone] Auto (Bld) [Volume fraction]Ordered By: Leola Smith on 00-50-5074Nzbpsusxjl (Bld) [Volume fraction]Hematocrit [Volume Fraction] of Blood by Automated deaekGsb26.0-46.4FCleveland Clinic Medina HospitalHemoglobin [Mass/volume] in BloodOrdered By: Leola Smith on 10-17-2024 Hemoglobin (Bld) [Mass/Vol]Hemoglobin [Mass/volume] in BmhspLzj22.8-15.4 Pomerene HospitalLeukocytes [#/volume] corrected for nucleated erythrocytes in Blood by Automated counOrdered By: Leola Smith on 10-17-2024 WBC corrected for nucl RBC Auto (Bld) [#/Vol]Leukocytes [#/volume] corrected for nucleated erythrocytes in Blood by Automated coun3.8-11.6FCleveland Clinic Medina HospitalLymphocytes Auto (Bld) [#/Vol]Ordered By: Leola Smith on 36-48-2736Pjkmxssqbsi (Bld) [#/Vol]Lymphocytes [#/volume] in Blood by Automated count1.00-4.8Pomerene HospitalLymphocytes/100 WBC Auto (Bld) Ordered By: Leola Smith on 43-03-2850Vpixykoszgf/100 WBC (Bld)Lymphocytes/100 leukocytes in Blood by Automated count.Pomerene HospitalMCH Auto (RBC) [Entitic mass]Ordered By: Leola Smith on 35-36-0952QZT (RBC) [Entitic mass]MCH [Entitic mass] by Automated count24.7-34.3FCleveland Clinic Medina HospitalMCHC Auto (RBC) [Mass/Vol]Ordered By: Leola Smith on 49-15-3167TBCD (RBC) [Mass/Vol]MCHC [Mass/volume] by Automated count32.0-35.0Pomerene HospitalMCV Auto (RBC) [Entitic vol]Ordered By: Leola Smith on 81-06-1159KVU (RBC) [Entitic vol]MCV [Entitic volume] by Automated countLow 80-100Pomerene HospitalMonocytes Auto (Bld) [#/Vol]Ordered By: Leola Smith on 20-37-0185Thgrovaxk (Bld) [#/Vol]Automated blood monocyte count 0.0-0.8Pomerene HospitalMonocytes/100 WBC Auto (Bld)Ordered By: Leola Smith on 51-87-0663Xzmffviju/100 WBC (Bld)Automated monocyte %.Pomerene HospitalNeutrophils Auto (Bld) [#/Vol]Ordered By: Leola Smith on 06-62-7076Ijdbjsgnmmg (Bld) [#/Vol]Neutrophils [#/volume] in Blood by Automated count1.8-7.7FCleveland Clinic Medina HospitalNeutrophils/100 WBC Auto (Bld)Ordered By: Leola Smith on 96-21-9164Ocvxxfsbnhh/100 WBC (Bld)Automated neutrophil %.Pomerene HospitalNo Panel InformationOrdered By: Leola Smith on 08-23-3802Buog-Nuclear Antibody Comment 2Comment.Pomerene HospitalComment on above:Pattern Potential Disease Association Homo geneous Systemic Lupus Erythematosus, Drug Induced Systemic Lupus Erythematosus, Chronic Autoimmunehepatitis, Juvenile Idiopathic Arthritis Speckled Sjogren Syndrome, Systemic Lupus Erythematosus, Subacute Cutaneous Lupus, Lupus, Congenital Heart Block, Mixed Connective Tissue Disease, Scleroderma-diffuse, Scleroderma- Autoimmune Myositis Overlap Syndrome, Systemic Lupus Kicvvsxapmojt-Abspniapsby-Fnxvlnhvex Myositis Overlap Syndrome, Systemic Autoimmune Rheumatic Disease, [...] Cytopenias, Linear Scleroderma, Antiphospholipid Syndrome Performed at: [facility] [id number] Director: Justice Flor PhD, Phone: [phone] GFR (CKD-EPI)> 60.0 mL/MinPomerene HospitalPharmacy Creatinine Clearance (Ikwu684.83Pomerene HospitalNucleated erythrocytes [Presence] in Blood by Automated countOrdered By: Leola Smith on 61-10-4948Hebtqxjdg RBC Auto Ql (Bld)Nucleated erythrocytes [Presence] in Blood by Automated count0-0.5FCleveland Clinic Medina HospitalPlatelet mean volume Auto (Bld) [Entitic vol]Ordered By: Leola Smith on 33-61-8900Mxrgbwzp mean volume (Bld) [Entitic vol]Platelet mean volume [Entitic volume] in Blood by Automated count6.3-10.7FCleveland Clinic Medina HospitalPlatelets Auto (Bld) [#/Vol]Ordered By: Leola Smith on 62-06-0644Sgkyenrby (Bld) [#/Vol]Platelets [#/volume] in Blood by Automated -068HoysbsegoPomerene HospitalPotassium [Moles/volume] in Serum or PlasmaOrdered By: Leola Smith on 29-52-4026Sxysxskee [Moles/Vol]Potassium [Moles/volume] in Serum or PlasmaLow3.5-5.1FCleveland Clinic Medina Hospital Protein [Mass/volume] in Serum or PlasmaOrdered By: Leola Smith on 10-17-2024 Protein [Mass/Vol]Protein [Mass/volume] in Serum or PlasmaLow6.4-8.9Pomerene HospitalRBC Auto (Bld) [#/Vol]Ordered By: Leola Smith on 83-73-3319CMV (Bld) [#/Vol]Erythrocytes [#/volume] in Blood by Automated count 3.60-5.00Pomerene HospitalRPR w/rfx to Quant TP Abson 10-17-2024 RPR, Rfx Quant RPRNon-ReactiveNormalNon ReactiveThe Critical Access Hospital Physician Group Comment on above:Result Comment: Performed at: - [facility] [address] [place], [place] [id number] Rail Signal Worker: Justice Flor PhD, Phone: [phone] PERFORMED BY: [facility] [place] [address] PATHOLOGIST QUALITY CONTROL ASSISTANT MARQUITA BOLAÑOS M.D.Performed By: #### RPR W RFX, HIV SCREEN #### [facility] ,Serum RPR testOrdered By: Leola Smith on 24-69-2881Luihou Ab RPR Ql (S)Reagin Ab [Presence] in Serum by RPRNon ReactivePomerene Hospital Comment on above:Performed at: - [facility] [id number] Director: Justice Flor PhD, Phone: [phone] nuclear antibody titerOrdered By: Leola Smith on 26-17-2286Aamcmvw Ab (S) [Titer]Serum nuclear antibody titerAbnormal.Pomerene HospitalComment on above:Negative <1:80 Borderline 1:80 Positive >1:80Serum or plasma albumin/globulin mass ratioOrdered By: Leola Smith on 10-17-2024 Albumin/Globulin [Mass ratio]Serum or plasma albumin/globulin mass ratio [facility] Hospitalerum or plasma anion gap determinationOrdered By: Leola Smith on 86-03-1284Gqkqb gap [Moles/Vol]Serum or plasma anion gap determination6.0-15.0[facility] Hospitalerum speckled pattern antinuclear antibody (LIZBETH) titerOrdered By: Leola Smith on 78-39-3673Wvdmduzg nuclear Ab pattern (S) [Titer]Serum speckled pattern antinuclear antibody (LIZBETH) titerHigh.Pomerene HospitalComment on above:Dense Fine Speckled pattern is noted. This pattern suggeststhe presence of DFS70 antibody which hasa low prevalencein systemic autoimmune rheumatic diseases.ICAP nomenclature: AC-2,4,5,29Sodium [Moles/volume] in Serum or PlasmaOrdered By: Leola Smith on 37-82-4859Urgtzz [Moles/Vol]Sodium [Moles/volume] in Serum or Aqkkqy705-850 Pomerene HospitalUrea nitrogen [Mass/volume] in Serum or Plasma Ordered By: Leola Smith on 09-99-0349Kzac nitrogen [Mass/Vol]Urea nitrogen [Mass/volume] in Serum or Plasma7-25Pomerene HospitalWBC Auto (Bld) [#/Vol]Ordered By: Leola Smith on 40-23-2217HOC (Bld) [#/Vol]Leukocytes [#/volume] in Blood by Automated count3.8-11.6FCleveland Clinic Medina Hospital Ammoniaon 85-98-6933Wfcklhv (P) [Moles/Vol]27 umol/IAzynif07-96Nuy [facility] Access Hospital Physician GroupComment on above:Result Comment: PERFORMED BY: [address] [place] [address] PATHOLOGIST QUALITY CONTROL ASSISTANT MARQUITA BOLAÑOS M.D.Performed By: #### AMM #### [facility] [address] [place], [place] [id number] USAAmmonia [Moles/volume] in PlasmaOrdered By: Elfego Muniz on 30-68-0117Bpppocy (P) [Moles/Vol]Ammonia [Moles/volume] in Plasma 1135Pomerene HospitalAnisocytosis LM Ql (Bld)Ordered By: Elfego Muniz on 00-96-3166Vnamrmjhifuo Ql (Bld)Anisocytosis [Presence] in Blood by Light microscopyPomerene Hospital Choriogonadotropin.beta subunit [Units/volume] in Serum or PlasmaOrdered By: Leola Smith on 99-30-4136DWR.beta subunit QnChoriogonadotropin.beta subunit [Units/volume] in Serum or PlasmaPomerene HospitalComprehensive Metabolic Panelon 65-45-6863Maaflih [Mass/Vol]3.7 g/dLNormal3.5-5.7The Critical Access Hospital Physician GroupComment on above:Performed By: #### AMM #### [facility] [address] [place] [address] USAAlbumin/Globulin [Mass ratio]1.8 {ratio}NormalThe Critical Access Hospital Physician GroupComment on above:Performed By: #### AMM #### [place] [address] USAALP [Catalytic activity/Vol]133 U/EYnjr66-766Dci Critical Access Hospital Physician GroupComment on above:Performed By: #### AMM #### [facility] [address] [place] [address] USAALT [Catalytic activity/Vol]278 U/LHigh7-52The Critical Access Hospital Physician GroupComment on above:Performed By: #### AMM #### [place] [address] USAAnion gap [Moles/Vol]10.9 mmol/LNormal6.0-15.0The Critical Access Hospital Physician GroupComment on above:Performed By: #### AMM #### [place] [address] USAAST [Catalytic activity/Vol]54 U/CSacf73-66Lfb Critical Access Hospital Physician GroupComment on above:Performed By: #### AMM #### [place] [address] USABilirubin [Mass/Vol]0.8 mg/dLNormal0.3-1.0The Critical Access Hospital Physician GroupComment on above:Performed By: #### AMM #### [place] [address] USACalcium [Mass/Vol]8.1 mg/dLLow8.6-10.3The Critical Access Hospital Physician GroupComment on above:Performed By: #### AMM #### [facility] [address] [place] [address] USAChloride [Moles/Vol]110 mmol/SFovm59-097Gds Critical Access Hospital Physician GroupComment on above:Performed By: #### AMM #### [facility] [address] [place] [address] USACO2 [Moles/Vol]23.7 mmol/QRodwaf60.0-31.0The Critical Access Hospital Physician GroupComment on above:Performed By: #### AMM #### [facility] [address] [place] [address] USACreatinine [Mass/Vol]0.44 mg/dLLow0.60-1.20The Critical Access Hospital Physician GroupComment on above:Performed By: #### AMM #### [facility] [address] [place] [address] USACreatinine Clr Calc Rleiutjz430.10NormalThe Critical Access Hospital Physician GroupComment on above:Performed By: #### AMM #### [facility] [address] [place] [address] USAGFR/1.73 sq M.predicted MDRD (S/P/Bld) [Vol rate/Area] mL/min/{1.73_m2}NormalThe Critical Access Hospital Physician GroupComment on above:Performed By: #### AMM #### [place] [address] USAGlobulin (S) [Mass/Vol]2.1 g/dLNormJohns Hopkins All Children's Hospital Physician GroupComment on above:Performed By: #### AMM #### [place] [address] USAGlucose [Mass/Vol]86 mg/pXAnozkt69-838Qmn Critical Access Hospital Physician GroupComment on above:Result Comment: Random Glucose Reference Range is dependent on time and content of last meal. Glucose of more than 200 mg/dL in a nonstressed, ambulatory subject supports the diagnosis of Diabetes Mellitus. ADA recommended reference rangePerformed By: #### AMM #### [place] [address] USAPotassium [Moles/Vol]3.6 mmol/LNormal3.5-5.1The Critical Access Hospital Physician GroupComment on above:Performed By: #### AMM #### [place] [address] USAProtein [Mass/Vol]5.8 g/dLLow6.4-8.9The Critical Access Hospital Physician GroupComment on above:Performed By: #### AMM #### [place] [address] USASodium [Moles/Vol]141 mmol/ZPniiwo321-456Xjb Critical Access Hospital Physician GroupComment on above:Performed By: #### AMM #### [facility] [address] [place] [address] USAUrea nitrogen [Mass/Vol]10 mg/dLNormal7-25The Critical Access Hospital Physician GroupComment on above:Performed By: #### AMM #### [facility] [address] [place] [id number] USADiagnostic impression interpretation by molecular genetics method narrativeOrdered By: Elfego Muniz on 98-36-8657Tbdhrcksch impression Molgen Ignacio (Unsp spec) [Interp]Diagnostic impression [Interpretation] in Specimen Narrative.Pomerene HospitalComment on above: Positive HCV antibody screen with the presence of HCV RNAis consistent with active infection.Performed at: - [facility] [id number] Director: Justice Flor PhD, Phone: [phone] at: [facility] [address] [id number]: Alejandra Palomino MD, Phone: [phone] Note-Nursingon 59-11-6523RP Note-NursingED Note-Nursing pt has not urinated since arrival. pt refused straight cath at this time. pt's mother states [facility]rythrocyte morphology finding [Identifier] in BloodOrdered By: Elfego Muniz on 78-65-3550EER morphology finding Nom (Bld)RBC morphologyPomerene HospitalFerritinon 56-41-6145Bornvgfe [Mass/Vol]23.5 ng/mLNormal 11.0-306.8The Critical Access Hospital Physician GroupComment on above:Performed By: #### AMM #### [facility] [address] [place] [id number] USAFerritin [Mass/volume] in Serum or PlasmaOrdered By: Leola Smith on 26-04-1133Aiaczxch [Mass/Vol]Ferritin [Mass/volume] in Serum or Ksydlp75.0-306.8Pomerene HospitalHCG,Qualitative Serumon 95-58-6440ITZ,Qualitative SerumNegativeNormalThe Critical Access Hospital Physician Group Comment on above:Result Comment: PERFORMED BY: [place] [address] PATHOLOGIST QUALITY CONTROL ASSISTANT MARQUITA BOLAÑOS M.D.Performed By: #### AMM #### [place] [address] USAHepatitis A virus IgM antibody assayOrdered By: Elfego Muniz on 69-36-6037Gafrmjzcd A IgM AntibodyNegativeNegativePomerene HospitalComment on above:A negative anti-HAV IgM result suggests no recent orcurrent HAV infection.Hepatitis Acute Panelon 57-55-7734OXyVq Screen NegativeNormalNegativeThe [facility] Access Hospital Physician [facility] HospitalComment on above:Performed By: #### URDS #### [place] [address] USAHCV Vyz064.903Normal.The Critical Access Hospital Physician GroupComment on above:Result Comment: Result Units: log10 IU/mLPerformed By: #### URDS #### [place] [address] USAHepatitis A Antibody IgMNegativeNormalNegativeThe [facility] Access Hospital Physician [facility] HospitalComment on above:Result Comment: A negative anti-HAV IgM result suggests no recent or current HAV infection.Performed By: #### URDS #### [place] [address] USAHepatitis B Core Antibody IgMNegativeNormalNegativeNemours Children'[facility] Physician [facility] HospitalComment on above:Performed By: #### URDS #### [place] [address] USAHepatitis C Jjghdqtnocdy487 [IU]/mLNormal.The Critical Access Hospital Physician GroupComment on above:Performed By: #### URDS #### [place] [address] USAHepatitis C Virus AntibodyReactiveCritically abnormalNon ReactiveThe Critical Access Hospital Physician GroupComment on above:Performed By: #### URDS #### [place] [address] USAInterpretationCommentNormal.The [facility]ician Group Comment on above:Result Comment: Positive HCV antibody screen with the presence of HCV RNA is consistent with active infection. Performed at: - [facility] [address] [id number] Rail Signal Worker: Justice Flor PhD, Phone: [phone] Performed at: - [facility] [address] [id number] Rail Signal Worker: Alejandra Palomino MD, Phone: [phone] PERFORMED BY: [place] [address] PATHOLOGIST QUALITY CONTROL ASSISTANT MARQUITA BOLAÑOS M.D.Performed By: #### URDS #### [place] [address] USATest Information:CommentNormal.The Critical Access Hospital Physician GroupComment on above:Result Comment: The quantitative range of this assay is 15 IU/mL to 100 million IU/mL.Performed By: #### URDS #### [place] [address] USAHepatitis B virus core IgM antibody assayOrdered By: Elfego Muniz on 02-24-1606Xrmdbjwmy B Core IgM AntibodyNegativeNegative Pomerene HospitalHepatitis C virus IgG Ab [Presence] in Serum or Plasma by ImmunoassayOrdered By: Elfego Muniz on 88-31-2357FDZ IgG IA Ql Hepatitis C virus IgG Ab [Presence] in Serum or Plasma by ImmunoassayAbnormalNon ReactivePomerene HospitalINR in Platelet poor plasma by Coagulation assayOrdered By: Elfego Muniz on 95-65-2132TSS Coag (PPP) [Relative time]INR in Platelet poor plasma by Coagulation assayPomerene HospitalComment on above:INR Therapeutic Range A) Pre- and [...] Serum or PlasmaOrdered By: Leola Smith on 66-80-5242Rbnb [Mass/Vol]Iron [Mass/volume] in Serum or BbwghdAqn82-171AnbghxmwxPomerene HospitalIron and TIBC Profileon 10-16-2024% Iron Saturation8.9 %Crg35-91Jyp [facility]ician Group Comment on above:Performed By: #### AMM #### [facility] [address] [place] [address] USAIron [Mass/Vol]35 ug/iOLdz83-867Qah Critical Access Hospital Physician GroupComment on above:Performed By: #### AMM #### [facility] [address] [place] [address] USATotal Iron Binding Iwqkclwl818 ug/wPIvvcmz591-561Kxu Critical Access Hospital Physician GroupComment on above:Performed By: #### AMM #### [facility] [address] [place] [address] USATransferrin [Mass/Vol]282 mg/bUOjudiv241-685Czi Critical Access Hospital Physician GroupComment on above:Performed By: #### AMM #### [facility] [address] [place] [address] USALactate [Moles/volume] in Serum or PlasmaOrdered By: Elfego Muniz on 49-98-3008Kdadnbn [Moles/Vol]Lactate [Moles/volume] in Serum or Plasma0.5-1.9Pomerene HospitalComment on above:Lactic Acid reference range has been updated to 0.5 1.9 mmol/L and the critical range of 2.0 or greater.Lactic Acidon 11-07-8958Zagaxyh [Moles/Vol]0.5 mmol/LNormal 0.5-1.9The Critical Access Hospital Physician GroupComment on above:Result Comment: Lactic Acid reference range has been updated to 0.5 ? 1.9 mmol/L and the critical range of 2.0 or greater. PERFORMED BY: [place] [address] PATHOLOGIST QUALITY CONTROL ASSISTANT MARQUITA BOLAÑOS M.D.Performed By: #### LACTIC #### [place] [id number] USAMR head/brain wo conon 64-20-8997NB head/brain wo con [facility] [place] [address] [place] [address] MRI Report Signed Patient: Noe Duran MR#: [id number] : 1995 Acct:[id number] Age/Sex: 29 / F ADM Date: 10/15/24 Loc: Room: [address] [place] [address] Type: ADM IN Attending Dr: Leola Smith [...] Beto Little M.D.10/16/2024 9:38 PM Dictation Location: [place] [address] Transcribed By: [facility] 10/16/242137 Dictated By: Beto Little DO 10/16/242127 Signed By: 10/16/242137NoFormerly [facility], [facility] Physician GroupMagnesiumon 57-08-0018Wqrmoqlxi [Mass/Vol]2.1 mg/dLNormal1.9-2.7The Critical Access Hospital Physician GroupComment on above: Result Comment: PERFORMED BY: [place] [address] PATHOLOGIST QUALITY CONTROL ASSISTANT MARQUITA BOLAÑOS M.D.Performed By: #### AMM #### [place] [address] USAMagnesium [Mass/volume] in Serum or PlasmaOrdered By: Elfego Muniz on 53-91-7836Reqajvkzf [Mass/Vol]Magnesium [Mass/volume] in Serum or Plasma1.9-2.7FCleveland Clinic Medina HospitalMagnetic resonance imaging reportOrdered By: Beto Little on 27-19-7706Jepmc reportFIROHIO STATE HARDING HOSPITAL [place] [address] [place] [address] MRI Report Signed Patient: Noe Duran MR#: [id number] : 1995 Acct:[id number] Age/Sex: 29 / F ADM Date: 5 Loc: Room: [address] [place] [address] Type: ADM IN Attending Dr: Leola Smith [...] Beto Little M.D.10/16/2024 9:38 PM Dictation Location: [place] [address] Transcribed By: [facility] 10/16/242137 Dictated By: Beto Little DO 10/16/242127 Signed By: 10/16/242137 Pomerene HospitalMicrocytes LM Ql (Bld)Ordered By: Elfego Muniz on 72-61-5237Zzslvakkbn Ql (Bld)Microcytes [Presence] in Blood by Light microscopyPomerene HospitalNo Panel InformationOrdered By: Elfego Muniz on 64-25-0433Vlytthwbi C RNA Qnt (PCR) Test InfoComment. Pomerene HospitalComment on above:The quantitative range of this assay is 15 IU/mL to 100million IU/mL.Partial Thromboplastin Timeon 10-16-2024 aPTT Coag (d) [Time]31.2 sXafizh37.1-36.5The Critical Access Hospital Physician GroupComment on above:Result Comment: A hematocrit value greater than 55% may lead to inaccurate results in coagulation testing. Patients having hematocrit values >55% require a special collection tube for coagulation studies. Please contact the laboratory at [phone] for redraw instructions. PERFORMED BY: [place] [id number] PATHOLOGIST QUALITY CONTROL ASSISTANT MARQUITA BOLAÑOS M.D.Performed By: #### AMM #### [place] [address] USAPath. Reviewon 31-21-8818Pvzj ReviewAtypical lymphocytosis and monocytosis. Clinical correlation and further follow-up is recommended for etiology as clinically indicated.Invalid Interpretation Daniel [facility] Bayview Medical CenterComment on above:Performed By: #### [id number] #### [facility] [address] [place] [address]Klfnpzlzu [Mass/volume] in Serum or PlasmaOrdered By: Leola Smith on 87-83-1008Madmjlwyq [Mass/Vol]Phosphate [Mass/volume] in Serum or Plasma2.5-4.5FCleveland Clinic Medina HospitalPhosphoruson 67-84-5886Yzihidpqt [Mass/Vol]3.5 mg/dLNormal2.5-4.5The Critical Access Hospital Physician GroupComment on above: Performed By: #### AMM #### [facility] [address] [place] [address] USAPlatelet adequacy [Presence] in Blood by Light microscopy Ordered By: Elfego Muniz on 55-60-5495Tzlehmeen LM Ql (Bld)Platelet adequacy [Presence] in Blood by Light microscopyParkview Health Montpelier HospitalPlatelet morphology finding [Identifier] in BloodOrdered By: Elfego Muniz on 12-36-1978Zidxnvdf morphology finding Nom (Bld)Platelet morphology finding [Identifier] in BloodNoOhio State University Wexner Medical CenterProthrombin Time INRon 08-59-9077RZC Coag (PPP) [Relative time]0.9 {INR}NormalThe Critical Access Hospital Physician GroupComment on above:Result Comment: INR Therapeutic [...] 3 - 4.5Performed By: #### AMM #### [facility] [address] [place] [address] USAPT Coag (PPP) [Time]10.9 sNormal9.0-12.9The Critical Access Hospital Physician GroupComment on above:Result Comment: A hematocrit value greater than 55% may lead to inaccurate results in coagulation testing. Patients having hematocrit values >55% require a special collection tube for coagulation studies. Please contact the laboratory at [phone] for redraw instructions.Performed By: #### AMM #### [facility] [address] [place] [address] USAProthrombin time (PT)Ordered By: Elfego Muniz on 25-57-1766DN Coag (PPP) [Time]Prothrombin time (PT)9.0-12.9Pomerene HospitalComment on above:A hematocrit value greater than 55% may lead to inaccurate results in coagulation testing. Patientshaving hematocrit values >55% require a special collection tube for coagulation studies. Please contact the laboratory at [phone] for redraw instructions.Scan and CBCon 10-16-2024 Anisocytosis Ql (Bld)ModerateNormalThe Critical Access Hospital Physician GroupComment on above:Performed By: #### AMM #### [place] [address] USABasophils (Bld) [#/Vol]0.0 10*3/uLNormal0.0-0.2The Critical Access Hospital Physician GroupComment on above:Performed By: #### AMM #### [place] [address] USABasophils/100 WBC (Bld)0.4 %Normal.The Critical Access Hospital Physician GroupComment on above:Performed By: #### AMM #### [place] [address] USAEosinophils (Bld) [#/Vol]0.0 10*3/uLNormal0.0-0.45The Critical Access Hospital Physician GroupComment on above:Performed By: #### AMM #### [place] [address] USAEosinophils/100 WBC (Bld)0.1 %Normal.The Critical Access Hospital Physician GroupComment on above:Performed By: #### AMM #### [place] [address] USAErythrocyte distribution width (RBC) [Ratio]17.2 %High 11.9-15.3The Critical Access Hospital Physician GroupComment on above:Performed By: #### AMM #### [place] [address] USAHematocrit (Bld) [Volume fraction]30.1 %Low34.0-46.4The Critical Access Hospital Physician GroupComment on above:Performed By: #### AMM #### [address] [place] [address] USAHemoglobin (Bld) [Mass/Vol]9.9 g/dLLow11.8-15.4The Critical Access Hospital Physician GroupComment on above:Performed By: #### AMM #### [place] [address] USALymphocytes (Bld) [#/Vol]3.4 10*3/uLNormal1.00-4.8The Critical Access Hospital Physician GroupComment on above:Performed By: #### AMM #### [place] [address] USALymphocytes/100 WBC (Bld)57.6 %Normal.The Critical Access Hospital Physician GroupComment on above:Performed By: #### AMM #### [place] [address] USAMCH (RBC) [Entitic mass]26.0 isYhtjsg98.7-34.3The Critical Access Hospital Physician GroupComment on above:Performed By: #### AMM #### [place] [address] USAMCV (RBC) [Entitic vol]79.2 qKLgk40-618Tqz Critical Access Hospital Physician GroupComment on above:Performed By: #### AMM #### [place] [address] USAMean Corpuscular HGB Conc32.9 g/rUGmguid10.0-35.0The Critical Access Hospital Physician GroupComment on above:Performed By: #### AMM #### [place] [address] USAMicrocytosisSlightNormalThe Critical Access Hospital Physician Group Comment on above:Performed By: #### AMM #### [place] [address] USAMonocytes (Bld) [#/Vol]0.3 10*3/uLNormal0.0-0.8The Critical Access Hospital Physician GroupComment on above:Performed By: #### AMM #### [place] [address] USAMonocytes/100 WBC (Bld)5.2 %Normal.The Critical Access Hospital Physician GroupComment on above:Performed By: #### AMM #### [place] [address] USANeutrophils (Bld) [#/Vol]2.1 10*3/uLNormal1.8-7.7The Critical Access Hospital Physician GroupComment on above:Performed By: #### AMM #### [place] [address] USANeutrophils/100 WBC (Bld)36.7 %Normal.The Critical Access Hospital Physician GroupComment on above:Performed By: #### AMM #### [place] [address] USANRBC%0.2 /100{WBC}Normal0-0.5The [facility] Comment on above:Performed By: #### AMM #### [place] [address] USAPlatelet EstimateNormalNormalNormJohns Hopkins All Children's Hospital Physician GroupComment on above:Performed By: #### AMM #### [place] [address] USAPlatelet mean volume (Bld) [Entitic vol]9.0 fLNormal 6.3-10.7The Critical Access Hospital Physician GroupComment on above:Performed By: #### AMM #### [place] [address] USAPlatelet MorphologyNormalNormalNormJohns Hopkins All Children's Hospital Physician GroupComment on above:Result Comment: PERFORMED BY: [place] [address] PATHOLOGIST QUALITY CONTROL ASSISTANT MARQUITA BOLAÑOS M.D.Performed By: #### AMM #### [place] [address] USAPlatelets (Bld) [#/Vol]172 10*3/cFJpdtrz958-333Pue Critical Access Hospital Physician GroupComment on above:Performed By: #### AMM #### [facility] [address] [place] [address] USARBC (Bld) [#/Vol]3.80 10*6/uLNormal3.60-5.00The Critical Access Hospital Physician GroupComment on above:Performed By: #### AMM #### [facility] [address] [place] [address] USAWBC (Bld) [#/Vol]5.8 10*3/uLNormal3.8-11.6The Critical Access Hospital Physician GroupComment on above:Performed By: #### AMM #### [facility] [address] [place] [id number] USASerum or plasma hepatitis B virus surface antigen detection by immunoassayOrdered By: Elfego Muniz on 35-24-5298XBR surface Ag IA QlHepatitis B virus surface Ag [Presence] in Serum or Plasma by ImmunoassayNegativeOhioHealth Berger Hospitalerum or plasma hepatitis C virus RNA viral load by probe and target amplification meOrdered By: Elfego Muniz on 90-83-2763IAA RNA ELMO+probe [Log units/Vol]Hepatitis C virus RNA [log units/volume] (viral load) in Serum or Plasma by ELMO with.Pomerene HospitalComment on above:Result Units: log10 IU/mLSerum or plasma iron binding capacity measurement (mass/volume)Ordered By: Leola Smith on 68-19-2359Vzrf binding capacity [Mass/Vol]Iron binding capacity [Mass/volume] in Serum or Qsrrdh847-408FtoymiassOhioHealth Berger Hospitalerum or plasma iron saturation measurement (mass fraction)Ordered By: Leola Smith on 10-16-2024 Iron saturation [Mass fraction]Iron saturation [Mass Fraction] in Serum or CxhywfDlf39-44EkqpgcnqhPomerene HospitalTransferrin [Mass/volume] in Serum or PlasmaOrdered By: Leola Smith on 43-67-2130Xibfutstuyf [Mass/Vol] Transferrin [Mass/volume] in Serum or Hxgtya900-147VkpaaghgjPomerene HospitalaPTT in Platelet poor plasma by Coagulation assayOrdered By: Elfego Muniz on 47-36-8991bFBV Coag (PPP) [Time]Activated partial thromboplastin time (aPTT) in platelet poor plasma by coagulation a25.1-36.5FCleveland Clinic Medina HospitalComment on above:A hematocrit value greater than 55% may lead to inaccurate results in coagulation testing. Patientshaving hematocrit values >55% require a special collection tube for coagulation studies. Please contact the laboratory at [phone] for redraw instructions.ABO/Rhon 30-64-9262URP/Rh PositiveInvalid Interpretation [facility] Berger HospitalComment on above: Performed By: #### [id number] #### [facility] [address] [place], [place] [address]DZE/Rh History Checkon 11-91-2450PKH/Rh History CheckType verified by second sNormalGreen Cross HospitalComment on above:Performed By: #### [id number] #### [facility] [address] [place], [place] [address]SZB/Rh Retypeon 23-05-2842JFK/Rh Retype InterpPositiveInvalid Interpretation [facility] HospitalComment on above:Performed By: #### [id number] #### [facility] [address] [place], [place] [address]SFGHay 63-85-5624TNML Gel InterpNegativeNormalGreen Cross HospitalComment on above:Performed By: #### [id number] #### [facility] [address] [place], [place] [address]Tnzxpshfvc Lvlon 42-19-3418Luhoktqbiii Lvl<.1Low15.0-30.0Green Cross HospitalComment on above:Performed By: #### [id number] #### [facility] [address] [place], [place] [address]Msbrhlcmsab Screen Ql (U)Ordered By: Elfego Muniz on 20-08-7770Fcigrevxhiag Ql (U)Amphetamines screenHighNegativePomerene HospitalAppearance of UrineOrdered By: Elfego Muniz on 10-15-2024 Appearance (U)Urine appearanceCleBarnesville HospitalB hCG Qualon 63-42-3137Tcln HCG ( test) QlNegativeNormalGreen Cross Hospital Comment on above:Performed By: #### [id number] #### [facility] [address] [place], [place] [address]EVUVZ BANKOrdered By: Yeny Nicolas on 48-23-6613EYC/Rh Retype InterpPositiveInvalid Interpretation CodeHILLCREST HOSPITAL [facility] [place] BB SubsectionBLOOD BANK Ordered By: Marta Luna on 53-32-8258QOO/Rh InterpPositiveInvalid Interpretation CodeHILLCREST HOSPITAL CLAREM[facility] [place] BB SubsectionABSC Gel InterpNegative (10/15/24 1:35 PM)NormalHILLCREST HOSPITAL CLAREMORE [facility] [place] BB SubsectionBMPon 61-46-3274Tbpki gap [Moles/Vol]15 mmol/LNormal6-16Green Cross HospitalComment on above:Performed By: #### [id number] #### [facility] [address] [place], [place] [address]Dxnmuhd [Mass/Vol]8.8 mg/dLLow8.9-11.1FMetroHealth Parma Medical CenterComment on above:Performed By: #### [id number] #### [facility] [address] [place], [place] [address]Sfccmmkl [Moles/Vol]105 mmol/XLwochm732-134RlnqlmGreen Cross HospitalComment on above:Performed By: #### [id number] #### [facility] [address] [place], [place] [address]XP1 [Moles/Vol]22 mmol/AIdlixt59-39TsvmsaGreen Cross Hospital Comment on above:Performed By: #### [id number] #### [facility] [address] [place], [place] [address]Fvyvtivzla [Mass/Vol]0.8 mg/dLNormal0.5-1.3FMetroHealth Parma Medical CenterComment on above:Performed By: #### [id number] #### [facility] [address] [place], [place] [address]Fhfnyml [Mass/Vol]97 mg/uBLthugq43-596GfogqcGreen Cross HospitalComment on above:Performed By: #### [id number] #### [facility] [address] [place], [place] [address]Pmygbjuqt [Moles/Vol]3.2 mmol/LLow3.5-5.3FMetroHealth Parma Medical CenterComment on above:Performed By: #### [id number] #### [facility] [address] [place], [place] [address]Lcxatx [Moles/Vol]139 mmol/EXxsjbf591-283WofzsaGreen Cross HospitalComment on above:Performed By: #### [id number] #### [facility] [address] [place], [place] [address]Dmdz nitrogen [Mass/Vol]19 mg/dLNormal5-21Green Cross HospitalComment on above:Performed By: #### [id number] #### [facility] [address] [place], [place] [address]Iqvr nitrogen/Creatinine [Mass ratio]24 No UwcxgQqum41-82OegktiGreen Cross HospitalComment on above:Performed By: #### [id number] #### [facility] [address] [place], [place] [address]Uccdumbolkoy [Presence] in Urine by Screen methodOrdered By: Elfego Muniz on 83-61-7208Essehgzqgxtd Screen Ql (U)Barbiturates [Presence] in Urine by Screen methodNegativePomerene Hospital Benzodiazepines Screen Ql (U)Ordered By: Elfego Muniz on 10-15-2024 Benzodiazepines Ql (U)Benzodiazepines [Presence] in Urine by Screen method NegativePomerene HospitalBenzoylecgonine [Presence] in Urine by Screen methodOrdered By: Elfego Muniz on 82-04-1996Qgvstpzenfzsibf Screen Ql (U)Benzoylecgonine [Presence] in Urine by Screen methodNegativePomerene HospitalBilirubin Test strip Ql (U)Ordered By: Elfego Muniz on 89-56-1669Hjapudntt Ql (U)Bilirubin.total [Presence] in Urine by Test stripNegativePomerene HospitalBioFire Not Detectedon 88-25-9982ResZxst Not DetectedNot detectedNormalNot DetecteThe Critical Access Hospital Physician GroupComment on above:Result Comment: This is a duplicate RP2.1 COVID (PCR) result to be used for statistical tracking purpose only. PERFORMED BY: [facility] [address] [place] [address] PATHOLOGIST QUALITY CONTROL ASSISTANT MARQUITA BOLAÑOS M.D.Performed By: #### URDS #### [facility] [address] [place] [address] USABlood Bank ID#on [id number]#[id number] Interpretation CodeGreen Cross HospitalComment on above:Performed By: #### [id number] #### [facility] [address] [place] [address]GOW w/ Auto Diffon 42-13-8204Rngk form neutrophils/100 WBC (Bld)1.0 %Normal0.0-6.0Green Cross HospitalComment on above:Performed By: #### [id number] #### [facility] [address] [place], [place] [address]Lvoakgopx (Bld) [#/Vol]0.0 E9/LNormal0.0-0.2Fisher [facility]view Medical CenterComment on above:Performed By: #### [id number] #### [facility] [address] [place], [place] [address]Iekzydytxzf (Bld) [#/Vol]0.1 E9/LNormal0.0-0.5FMetroHealth Parma Medical CenterComment on above:Performed By: #### [id number] #### [facility] [address] [place], [place] [address]Dvbzvzknerk/100 WBC (Bld)1.0 %Normal0.0-8.0Green Cross HospitalComment on above:Performed By: #### [id number] #### [facility] [address] [place], [place] [address]Cppeegxzkwo distribution width (RBC) [Ratio]17.2 %High10.9-14.2 Green Cross HospitalComment on above:Performed By: #### [id number] #### [facility] [address] [place], [place] [address]Gpczseoayv (Bld) [Volume fraction]34.7 %Xphfgw94.0-46.0[facility] Cross HospitalComment on above:Performed By: #### [id number] #### [facility] [address] [place], [place] [address]Qrxcrnespl (Bld) [Mass/Vol]11.5 g/dLLow12.0-16.0Green Cross HospitalComment on above:Performed By: #### [id number] #### [facility] [address] [place] [address]Xtgwcunwgve (Bld) [#/Vol]7.8 E9/LHigh1.0-4.0[facility] Cross HospitalComment on above:Performed By: #### [id number] #### [facility] [address] [place] [address]Ykfgdwolygq/100 WBC (Bld)41.0 %Synycr64.0-50.0[facility] Cross HospitalComment on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 Name Collection Type:: Straight Catheter Performed By: #### URDS #### [place] [address] USASpecificy [place],Urine1.375Onwe8.001-1.030The Critical Access Hospital Physician GroupComment on above:Order Comment: Name Collection Type:: Straight CatheterPerformed By: #### URDS #### [place] [address] USAUrobilinogen,UrineNormalNormalNormalThe Critical Access Hospital Physician GroupComment on above:Order Comment: Name Collection Type:: Straight CatheterPerformed By: #### URDS #### [place] [address] USAUrobilinogen Test strip (U) [Mass/Vol]Ordered By: Elfego Muniz on 71-90-0891Duytqgtwmsoa (U) [Mass/Vol]Urobilinogen [Mass/volume] in Urine by Test stripNormKettering Health Greene MemorialeGFR on 68-38-5629jNGV368 mL/min/1.73 l1Zfrtpv>=59Fisher [facility] Medical CenterComment on above:Performed By: #### [id number] #### Jacob [facility] [address] [place], [place] [address]sM Test strip (U)Ordered By: Elfego Muniz on 10-15-2024 pH (U)pH of Urine by Test strip5.0-9.0Pomerene HospitalCBCon 56-57-9824Wtbizdetaov distribution width (RBC) [Ratio]20.5 %High11.8-14.4Way[facility] HospitalComment on above:Performed By: #### LIZA, CBC #### [address] [place] [id number] Rail Signal Worker: Mike Raines MDHematocrit (Bld) [Volume fraction]36.0 %Low 36.3-47.1MMarietta Memorial HospitalComment on above:Performed By: #### LIZA, CBC #### [address] [place] [address]83 Rail Signal Worker: Mike Raines MDHemoglobin (Bld) [Mass/Vol]10.9 g/dLLow11.9-15.1 [facility] HospitalComment on above:Performed By: #### CP, CBC #### [address] [place], [place] 4135383 Rail Signal Worker: JR BatemanCH (RBC) [Entitic mass]22.8 pgLow25.2-33.5Wayne HospitalComment on above:Performed By: #### CP, CBC #### [address] [place], [place] [address] Rail Signal Worker: BRENDEN BatemanC (RBC) [Mass/Vol]30.3 g/hWUolupd51.4-34.8Wayne HospitalComment on above:Performed By: #### CP, CBC #### [address] [place] [address] Rail Signal Worker: JR BatemanCV (RBC) [Entitic vol]75.3 fLLow82.6-102.9Wayne HospitalComment on above:Performed By: #### CP, CBC #### [address] [place] [address] Rail Signal Worker: JONATAN Bateman Automated0.0 per 100 WBCNormal0.0Wayne HospitalComment on above:Performed By: #### CP, CBC #### [address] [place] [address] Rail Signal Worker: Dana Bateman mean volume (Bld) [Entitic vol]11.1 fL Normal8.1-13.5Wayne HospitalComment on above:Performed By: #### LIZA, CBC #### [address] [place] [address] Rail Signal Worker: Chelsey Bateman (Bld) [#/Vol]307 10*3/iDTfeolt995-691 [facility] HospitalComment on above:Performed By: #### CP, CBC #### [address] [place] [address] Rail Signal Worker: GRACE BatemanBC (Bld) [#/Vol]4.78 10*6/uLNormal3.95-5.11Wayne HospitalComment on above:Performed By: #### CP, CBC #### [address] [place] [address] Rail Signal Worker: LAI Bateman (Bld) [#/Vol]5.1 10*3/uLNormal3.5-11.3[facility] Eastpoint HospitalComment on above:Performed By: #### CP, CBC #### [address] [place], [place] [address]83 Rail Signal Worker: Mike Raines MDComp Metabolic Profon 61-07-1631Wirpqncit [Mass/Vol]mg/dLLow0.3-1.2MMiddletown Hospital HospitalComment on above:Performed By: #### CP, CBC #### [address] [place] [address] Rail Signal Worker: Mike Raines, MDAlbumin [Mass/Vol]3.5 g/dLNormal3.5-5.2MMiddletown Hospital HospitalComment on above:Performed By: #### CP, CBC #### [address] [place], [place] [address]383 Rail Signal Worker: Mike Raines MDAlbumin/Glob Ratio1.0Akolfd4.0-2.5MerJoint Township District Memorial Hospital HospitalComment on above:Performed By: #### CP, CBC #### [address] [place], [place] 6[address]883 Rail Signal Worker: Netta Batemankaline Phos59 U/ZTlunfr58-172Chgew [facility]iffin HospitalComment on above:Performed By: #### CP, CBC #### [address] [place] [address] Rail Signal Worker: Mike Raines MDALT [Catalytic activity/Vol]14 U/LNormal5-33[facility] HospitalComment on above:Performed By: #### CP, CBC #### [address] [place], [place] 80[address]383 Rail Signal Worker: Mike Raines MDAnion gap [Moles/Vol]7 mmol/LLow9-17[facility] HospitalComment on above:Performed By: #### CP, CBC #### [place] [address] [place] [address] Rail Signal Worker: Mike Raines MDAST [Catalytic activity/Vol]14 U/LNormal<32Wayne HospitalComment on above:Performed By: #### CP, CBC #### [address] [place] [address] Rail Signal Worker: Mike Raines MDBUN/CRE Kttvm20Ismb3-02ZwxttWayne Hospital Comment on above:Performed By: #### CP, CBC #### [address] [place] [address] Rail Signal Worker: Mike Raines MDCalcium [Mass/Vol]8.6 mg/dLNormal8.6-10.4MerConnecticut HospiceComment on above:Performed By: #### CP, CBC #### [address] [place] [address] Rail Signal Worker: Mike Raines MDChloride [Moles/Vol]104 mmol/VLpsqsc73-404EfrjcWayne HospitalComment on above:Performed By: #### CP, CBC #### [address] [place] [address] Rail Signal Worker: Mike Raines MDCO2 [Moles/Vol]28 mmol/VPaclkr15-58Pcmck [facility]iffin HospitalComment on above:Performed By: #### CP, CBC #### [address] [place] [address] Rail Signal Worker: Mike Raines MDCreatinine [Mass/Vol]0.7 mg/dLNormal0.5-0.9Wayne HospitalComment on above:Performed By: #### CP, CBC #### [address] [place] [address] Rail Signal Worker: Mike Raines MDGFR/1.73 sq M.predicted among non-blacks MDRD (S/P/Bld) [Vol rate/Area]mL/min/{1.73_m2}Normal>60[facility]point HospitalComment on above:Result Comment: These results are not [...] tubular secretion.Performed By: #### CP, CBC #### [address] [place] [address] Rail Signal Worker: Mike Raines MDGlucose [Mass/Vol]87 mg/fHJfbyis85-42Hvujf [facility] Psychiatric HospitalComment on above:Performed By: #### LIZA, CBC #### [address] [place], [place] [address]83 Rail Signal Worker: KAYLEIGH Batemanotassium [Moles/Vol]4.0 mmol/LNormal3.7-5.3[facility] HospitalComment on above:Performed By: #### CP, CBC #### [address] [place], [place] [address]83 Rail Signal Worker: Mike Raines MDProtein [Mass/Vol]5.8 g/dLLow6.4-8.3[facility] HospitalComment on above:Performed By: #### CP, CBC #### [address] [place], [place] 44[address] Rail Signal Worker: Mike Raines MDSodium [Moles/Vol]139 mmol/JTrvlkz727-154Irylq [facility]in HospitalComment on above:Performed By: #### CP, CBC #### [address] [place], [place] 5[address] Rail Signal Worker: Mike Raines MDUrea nitrogen [Mass/Vol]25 mg/dLHigh6-20[facility] HospitalComment on above:Performed By: #### CP, CBC #### [facility] [address] [place] [address] Rail Signal Worker: Mike Raines MDATRIUM HEALTH FLOYD [facility] CBC WITH PLATELET NO DIFFERENTIALon 74-08-4882Ewagxpfpzqg distribution width (RBC) [Ratio]15.9 %High11.0 - 15.0 % [facility] HealthcareHematocrit (Bld) [Volume fraction]34.0 %Low36.0 - 48.0 %[facility] HealthcareHemoglobin (Bld) [Mass/Vol]10.1 g/dLLow12.0 - 16.0 g/dLSaint Mary's Health Center Interpretation and review of laboratory resultsAbnormalHedrick Medical Center (RBC) [Entitic mass]22.6 pgLow26.7 - 34.0 pgMissouri Baptist Hospital-SullivanHC (RBC) [Mass/Vol]29.7 g/dLLow29.9 - 35.2 g/dLMissouri Baptist Hospital-SullivanV (RBC) [Entitic vol]76.2 fLLow81.0 - 99.0 fLSaint Mary's Health CenterPlatelet mean volume (Bld) [Entitic vol]11.7 fL9.5 - 13.5 fLLafayette Regional Health Center JQC000YFSHHedrick Medical Center RBC4.46NOHedrick Medical Center WBC12.0 HighSaint Mary's Health CenterCLINISYNCNOMS HealthcareCULTURE URINEon 13-00-1406JEGHLFZ URINEIsolate 1 Escherichia coli >100,000 cfu/mL of [...] Nitrofurantoin <=16 S F Trimethoprim/Sulfamethoxazole >=320 R FNormalSalem Regional Medical CenterComment on above:Performed By: #### CBC #### [facility] [address] [place] [address] [address] Hemanth Tol[place] AUTO DIFFon 09-16-7160AJON #0.0 103/ulNormal0.0-0.1The [facility] HospitalComment on above:Performed By: #### CBC #### [facility] [address] [place] [address] [address] Hemanth KerrBasophils/100 WBC (Bld)0.7 %Normal0.2-2.0[facility] Comment on above:Performed By: #### CBC #### [facility] [address] [place] [address] Dr. Hemanth Pablo #0.2 103/ulNormal0.0-0.7The [facility] HospitalComment on above: Performed By: #### CBC #### [facility] [address] [place] [address] Dr. Hemanth Watsonosinophils/100 WBC (Bld)3.3 %Normal0.9-7.0The [facility] Comment on above:Performed By: #### CBC #### [facility] [address] [place] [address] Dr. Hemanth Watsonrythrocyte distribution width (RBC) [Ratio]14.3 %Stfphc15.0-15.0 The [facility] HospitalComment on above:Performed By: #### CBC #### [facility] [address] [place] [address] Dr. Hemanth KerrHematocrit (Bld) [Volume fraction]37.2 %Qrpqqu56.0-48.0The [facility] HospitalComment on above:Performed By: #### CBC #### [facility] [address] [place] [address] Dr. Hemanth KerrHemoglobin (Bld) [Mass/Vol]11.9 g/dLCritically low12.0-16.0[facility] Medical CenterComment on above:Performed By: #### CBC #### [facility] [address] [place] [address] Dr. Hemanth Granados #0.01 10e3/ulNormal0.00-0.03The [facility] HospitalComment on above:Performed By: #### CBC #### [facility] [address] [place] [address] Dr. Hemanth Granados %0.2 %Normal0.0-0.5The [facility] HospitalComment on above: Performed By: #### CBC #### [facility] [address] [place] [address] Dr. Hemanth Greco #1.7 103/ulNormal1.2-3.8The [facility] HospitalComment on above:Performed By: #### CBC #### [facility] [address] [place] [address] Dr. Hemanth Goetzhocytes/100 WBC (Bld)31.3 %Kbtngs48.5-60.0The [facility] HospitalComment on above:Performed By: #### CBC #### [facility] [address] [place] [address] Dr. Hemanth Brown DIFF REQNONormalThe [facility] HospitalComment on above: Performed By: #### CBC #### [facility] [address] [place] [address] Dr. Hemanth Miller (RBC) [Entitic mass]27.8 boXsozny65.7-34.0The [facility] HospitalComment on above:Performed By: #### CBC #### [facility] [address] [place] [address] Dr. Hemanth Murphy (RBC) [Mass/Vol]32.0 g/yCErwags64.9-35.2The [facility] HospitalComment on above:Performed By: #### CBC #### [facility] [address] [place] [address] Dr. Hemanth Murphy (RBC) [Entitic vol]86.9 fCClviaz78.0-99.0The [facility] HospitalComment on above:Performed By: #### CBC #### [facility] [address] [place] [address] Dr. Hemanth Chavira #0.4 103/ulNormal0.3-0.8The [facility] HospitalComment on above:Performed By: #### CBC #### [facility] [address] [place] [address] Dr. Hemanth Bazanocytes/100 WBC (Bld)8.0 %Normal1.7-12.0The [facility] Comment on above:Performed By: #### CBC #### [facility] [address] [place] [address] Dr. Hemanth Joseph #3.1 103/ulNormal1.4-6.5The [facility] HospitalComment on above:Performed By: #### CBC #### [facility] [address] [place] [address] Dr. Hemanth Posadasutrophils/100 WBC (Bld)56.5 %Kpvcsl14.0-75.0The [facility] HospitalComment on above:Performed By: #### CBC #### [facility] [address] [place] [address] Dr. Hemanth Chavezlet mean volume (Bld) [Entitic vol]10.3 fLNormal9.5-13.5The [facility] HospitalComment on above:Performed By: #### CBC #### [facility] [address] [place] [address] Dr. Hemanth McdowellT258 103/taOabuks054-096Zap [facility] HospitalComment on above: Performed By: #### CBC #### [facility] [address] [place] [address] Dr. Hemanth KerrRBC4.28 106/ulNormal4.20-5.40The [facility] HospitalComment on above:Performed By: #### CBC #### [facility] [address] [place] [address] Dr. Hemanth KerrWBC5.4 103/ulNormal4.0-11.0The [facility] HospitalComment on above: Performed By: #### CBC #### [facility] [address] [place] [address] Dr. Hemanth Nguyen 14(COMP METB)on 44-38-4349Ifmzmdz [Mass/Vol]3.1 g/dL Critically low3.4-5.0The [facility] HospitalComment on above:Performed By: #### CMP #### [facility] [address] [place] [address] Dr. Hemanth KerrAlbumin/Globulin [Mass ratio]1.3 {ratio}NormalThe [facility] HospitalComment on above:Performed By: #### CMP #### [facility] [address] [place] [address] [address] Hemanth McleanP [Catalytic activity/Vol]56 U/TEtkwti39-164Xqt [facility] HospitalComment on above:Performed By: #### CMP #### [facility] [address] [place] [address] Dr. Hemanth Mathis [Catalytic activity/Vol]34 U/LEseoej43-81Dfe [facility] HospitalComment on above:Performed By: #### CMP #### [facility] [address] [place] [address] Dr. Hemanth Anguiano gap [Moles/Vol]7.0 mmol/LNormalThe [facility] HospitalComment on above:Performed By: #### CMP #### [facility] [address] [place] [address] Dr. Hemanth KerrAST [Catalytic activity/Vol]29 U/EYnjpxc20-23Brj [facility] HospitalComment on above:Performed By: #### CMP #### [facility] [address] [place] [address] Dr. Hemanth KerrBilirubin [Mass/Vol]0.4 mg/dLNormal0.2-1.0The [facility] Comment on above:Performed By: #### CMP #### [facility] [address] [place] [address] Dr. Hemanth KerrCalcium [Mass/Vol]8.3 mg/dLCritically low8.5-10.1The [facility] HospitalComment on above:Performed By: #### CMP #### [facility] [address] [place] [address] Dr. Hemanth KerrChloride [Moles/Vol]110 mmol/LCritically utzn04-534Mvl [facility] HospitalComment on above:Performed By: #### CMP #### [facility] [address] [place] [address] Dr. Hemanth KerrCO2 [Moles/Vol]27.6 mmol/PYrgswq36.0-32.0The [facility] Comment on above:Performed By: #### CMP #### [facility] [address] [address] [address] Hemanth KerrCreatinine [Mass/Vol]0.61 mg/dLNormal0.55-1.02The [facility] HospitalComment on above:Performed By: #### CMP #### [facility] [address] [place] [address] Dr. Hemanth WatsonGFR-AF MACANESE>60Normal>=60The [facility] HospitalComment on above:Performed By: #### CMP #### [facility] [address] [place] [address] Dr. Hemanth WatsonGFR-NON AF MACANESE>60Normal>=60The [facility] HospitalComment on above:Performed By: #### CMP #### [facility] [address] [place] [address] Dr. Hemanth KerrGlobulin (S) [Mass/Vol]2.4 g/dLNormalThe [facility] HospitalComment on above:Performed By: #### CMP #### [facility] [address] [place] [address] Dr. Hemanth KerrGlucose [Mass/Vol]110 mg/dLCritically mhfv75-295Foj [facility] HospitalComment on above:Performed By: #### CMP #### [facility] [address] [address] [address] Hemanth KerrPotassium [Moles/Vol]2.6 mmol/LCritically low3.5-5.1The [facility] HospitalComment on above:Performed By: #### CMP #### [facility] [address] [place] [address] Dr. Hemanth KerrProtein [Mass/Vol]5.5 g/dLCritically low6.4-8.2[facility] Medical CenterComment on above:Performed By: #### CMP #### [facility] [address] [address] [address] Hemanth KerrSodium [Moles/Vol]142 mmol/TXgtnhm612-673Xzt [facility] Comment on above:Performed By: #### CMP #### [facility] [address] [address] [address] Hemanth KerrUrea nitrogen [Mass/Vol]12.0 mg/dLNormal7.0-18.0The [facility] HospitalComment on above:Performed By: #### CMP #### [facility] [address] [address] [address] Hemanth Pelaez nitrogen/Creatinine [Mass ratio]19.7 mg/mgNoFirelands Regional Medical CenterComment on above:Performed By: #### CMP #### [facility] [address] [address] [address] Hemanth KerrXR HIP LT 2 3V W PELVISon 34-69-9182AS HIP LT 2 3V W PELVISEXAM: XR HIP LT 2 3V W PELVIS HISTORY: Pain COMPARISON: None. TECHNIQUE: 3 views of the left hip FINDINGS: No acute fracture seen. Joint alignment is normal. Joint spaces are preserved. Soft tissues appear unremarkable. IMPRESSION: No obvious radiographic evidence for acute displaced fracture or malalignment. Electronically authenticated by: ALIX GRANADOS Date: 2022-11-28 22:13[facility] Medical CenterACETAMINOPHENon 04-59-4431Iapzkroixntfq [Mass/Vol]ug/mL Critically low10.0-30.0The [facility] HospitalComment on above:Performed By: #### CMP #### [facility] [address] [address] [address] Hemanth KerrACETONE SERUMon 92-50-3228IFUWKPHOrowlqqrWckemjYXTNDCVCCsw [facility] HospitalComment on above:Performed By: #### PREG #### [facility] [address] [address] [address] Hemanth KerrAMMONIAon 26-75-0154Pmfebas (P) [Moles/Vol]24 umol/ZFfmqdw98-66 The [facility] HospitalComment on above:Performed By: #### LACT #### [facility] [address] [place] [address] Dr. Hemanth [place] AUTO DIFFon 58-54-4941SZTL #0.0 103/ulNormal0.0-0.1The [facility] HospitalComment on above:Performed By: #### LACT #### [facility] [address] [place] [address] Dr. Hemanth KerrBasophils/100 WBC (Bld)0.4 %Normal0.2-2.0The [facility] Comment on above:Performed By: #### LACT #### [facility] [address] [place] [address] Dr. Saxena ChangEChristiana #0.3 103/ulNormal0.0-0.7The [facility] HospitalComment on above: Performed By: #### LACT #### [facility] [address] [place] [address] Dr. Hemanth Watsonosinophils/100 WBC (Bld)3.1 %Normal0.9-7.0The [facility] Comment on above:Performed By: #### LACT #### [facility] [address] [place] [address] Dr. Hemanth Watsonrythrocyte distribution width (RBC) [Ratio]14.3 %Umrzdg45.0-15.0 [facility] Medical CenterComment on above:Performed By: #### LACT #### [facility] [address] [place] [address] Dr. Hemanth KerrHematocrit (Bld) [Volume fraction]41.3 %Cgdzro17.0-48.0The [facility] HospitalComment on above:Performed By: #### LACT #### [facility] [address] [place] [address] Dr. Hemanth KerrHemoglobin (Bld) [Mass/Vol]13.3 g/pQYzrxag40.0-16.0The [facility] HospitalComment on above:Performed By: #### LACT #### [facility] [address] [place] [address] Dr. Hemanth Granados #0.02 10e3/ulNormal0.00-0.03The [facility] HospitalComment on above:Performed By: #### LACT #### [facility] [address] [place] [address] Dr. Hemanth Granados %0.2 %Normal0.0-0.5The [facility] HospitalComment on above: Performed By: #### LACT #### [facility] [address] [place] [address] Dr. Hemanth Greco #2.4 103/ulNormal1.2-3.8The [facility] HospitalComment on above:Performed By: #### LACT #### [facility] [address] [place] [address] Dr. Hemanth Castillohocytes/100 WBC (Bld)26.3 %Jrgygp51.5-60.0The [facility] HospitalComment on above:Performed By: #### LACT #### [facility] [address] [place] [address] Dr. Hemanth KerrCH[facility]ICOT[facility] DIFF REQNONormalThe [facility] HospitalComment on above: Performed By: #### LACT #### [facility] [address] [place] [address] Dr. Hemanth Murphy (RBC) [Entitic mass]27.4 chVvqpvd80.7-34.0The [facility] HospitalComment on above:Performed By: #### LACT #### [facility] [address] [place] [address] Dr. Hemanth Murphy (RBC) [Mass/Vol]32.2 g/jRLrfolj29.9-35.2The [facility] HospitalComment on above:Performed By: #### LACT #### [facility] [address] [place] [address] Dr. Hemanth Murphy (RBC) [Entitic vol]85.0 oSWivntk53.0-99.0The [facility] HospitalComment on above:Performed By: #### LACT #### [facility] [address] [address] [address] Hemanth Chavira #0.7 103/ulNormal0.3-0.8The [facility] HospitalComment on above:Performed By: #### LACT #### [facility] [address] [place] [address] Dr. Hemanth Bazanocytes/100 WBC (Bld)7.3 %Normal1.7-12.0The [facility] Comment on above:Performed By: #### LACT #### [facility] [address] [place] [address] Dr. Hemanth Joseph #5.7 103/ulNormal1.4-6.5The [facility] HospitalComment on above:Performed By: #### LACT #### [facility] [address] [place] [address] Dr. Hemanth Posadasutrophils/100 WBC (Bld)62.7 %Smvmad38.0-75.0The [facility] HospitalComment on above:Performed By: #### LACT #### [facility] [address] [place] [address] Dr. Hemanth Andrews mean volume (Bld) [Entitic vol]10.6 fLNormal9.5-13.5The [facility] HospitalComment on above:Performed By: #### LACT #### [facility] [address] [place] [address] Dr. Hemanth KerrPLT347 103/orQwwqnt350-059Nwq [facility] HospitalComment on above: Performed By: #### LACT #### [facility] [address] [place] [address] Dr. Hemanth KerrRBC4.86 106/ulNormal4.20-5.40The [facility] HospitalComment on above:Performed By: #### LACT #### [facility] [address] [place] [address] Dr. Hemanth KerrWBC9.1 103/ulNormal4.0-11.0The [facility] HospitalComment on above: Performed By: #### LACT #### [facility] [id number] Hemanth Ruff CSPINE WO CONon [id number] CSPINE WO CONEXAMINATION: CT CSPINE WO CON [...] No acute bony abnormality. Electronically authenticated by: KAIMLLA MILLS Date: 2022-11-28 17:54NoFirelands Regional Medical CenterCT HEAD WO CONon [id number] HEAD WO CONEXAM: CT HEAD WO CON, [...] Electronically authenticated by: KAMILLA MILLS Date: 2022-11-28 18:40NormalThe Comfort HospitalCULTURE BLOODon [id number] examination of blood, cultureCulture Observations: NO GROWTH AT 5 DAYS.NormalSalem Regional Medical CenterComment on above:Performed By: #### CBC #### [facility] [address] [place] [address] Dr. Hemanth KerrMicroscopic examination of blood, cultureCulture Observations: NO GROWTH AT 5 DAYS.NormalThe Comfort HospitalComment on above:Performed By: #### BLDCX1 #### [facility] [address] [address] [address] Hemanth KerrCovid-19 PCR ([facility])on [id number]-CoV-2 (COVID-19) RNA ELMO+probe Ql (Unsp spec)Not detectedNormalNOT DETECTEDThe [facility] Comment on above:Result Comment: When diagnostic testing [...] for this test is supported by the [employer] Operator of Health and Human Service's declaration [...] longer be used).Performed By: #### LACT #### [facility] [address] [place] [address] Dr. Hemanth KerrDRUG SCREEN RAPID (URINE)on [id number]IVJ The [facility] HospitalComment on above:Performed By: #### PREG #### [facility] [address] [place] [address] Dr. Hemanth KerrBARNegativeNormalNEGATIVESalem Regional Medical CenterComment on above: Performed By: #### PREG #### [facility] [address] [address] [address] Hemanth KerrBUPNegativeNormalNEGATIVESalem Regional Medical CenterComcorewell health reed city hospital on above: Performed By: #### PREG #### [facility] [address] [address] [address] Hemanth KerrBZONegativeNormalNEGATIVESalem Regional Medical CenterComment on above: Performed By: #### PREG #### [facility] [address] [address] [address] Hemanth KerrCOCNegativeNormalNEGATIVESalem Regional Medical CenterComment on above: Performed By: #### PREG #### [facility] [address] [place] [address] Dr. Hemanth FordMemorial Health System Selby General Hospitalment on above: Result Comment: AMP (Amphetamine): 500ng/mL, BAR (Barbituates): 200 ng/mL, BZO (Benzodiazepines): 150 ng/mL, BUP (Buprenorphine): 10 ng/mL, YOLANDA (Cocaine): 150 ng/mL, mAMP (Methamphetamine): 500 ng/mL, MTD (Methadone): 200 ng/mL, OPI (Opiates): 100 ng/mL, OXY (Oxycodone): 100 ng/mL, PCP (Phencyclidine): 25 ng/mL, PPX (Propoxyphene): 300 ng/mL, THC (Cannabinoids): 50 ng/mL, TCA (Trycyclic Antidepressants): 300 ng/mLPerformed By: #### PREG #### [facility] [address] [place] [address] Dr. Hemanth KerrDRUG CUT HEADERDRUG CLASS TEST SYSTEM CUT-OFF CONCENTRATIONS ARE FOLLOWS:NormalThe [facility] HospitalComcorewell health reed city hospital on above:Performed By: #### PREG #### [facility] [address] [address] [address] Hemanth KerrmAMPPositiveAbnormalNEGATIVESalem Regional Medical CenterComcorewell health reed city hospital on above:Performed By: #### PREG #### [facility] [address] [address] [address] Hemanth KerrMTDNegativeNormalNEGATIVESalem Regional Medical CenterComment on above: Performed By: #### PREG #### [facility] [address] [address] [address] Hemanth KerrOPINegativeNormalNEGATIVESalem Regional Medical CenterComcorewell health reed city hospital on above: Performed By: #### PREG #### [facility] [address] [address] [address] Hemanth KerrOXYNegativeNormalNEGATIVESalem Regional Medical CenterComment on above: Performed By: #### PREG #### [facility] [address] [address] [address] Hemanth KerrPCPNegativeNormalNEGATIVESalem Regional Medical CenterComcorewell health reed city hospital on above: Performed By: #### PREG #### [facility] [address] [address] [address] Hemanth KerrPPXNegativeNormalNEGATIVESalem Regional Medical CenterComcorewell health reed city hospital on above: Performed By: #### PREG #### [facility] [address] [address] [address] Hemanth KerrTCANegativeNormalNEGATIVESalem Regional Medical CenterComcorewell health reed city hospital on above: Performed By: #### PREG #### [facility] [address] [place] [address] Dr. Hemanth KerrTHCNegativeNormalNEGATIVESalem Regional Medical CenterComcorewell health reed city hospital on above: Performed By: #### PREG #### [facility] [address] [address] [address] Saxena ChangEDelmis URINE PROFILEon 58-45-0761Nwbubxvqv Ql (U)NegativeNormal NEGATIVESalem Regional Medical CenterComment on above:Performed By: #### PREG #### [facility] [address] [address] [address] Hemanth Goodwin (U)CLEARNormalCLEARSalem Regional Medical CenterComment on above: Performed By: #### PREG #### [facility] [address] [address] [address] Yilan ChangColor (U)LT. YELLOWNormalYELLOWSalem Regional Medical CenterComment on above:Performed By: #### PREG #### [facility] [address] [address] [address] Hemanth Hewitt micrscopic examination will be performed if indicated. NormalSalem Regional Medical CenterComment on above:Performed By: #### PREG #### [facility] [address] [address] [address] Hemanth KerrGlucose Ql (U)NegativeNormalNEGATIVESalem Regional Medical CenterComment on above:Performed By: #### PREG #### [facility] [address] [place] [address] Dr. Hemanth KerrHemoglobin Ql (U)NegativeNormalNEGLancaster Municipal Hospital Comment on above:Performed By: #### PREG #### [facility] [address] [place] [address] Dr. Hemanth KerrKetones Ql (U)NegativeNormalNEGATIVESalem Regional Medical CenterComment on above:Performed By: #### PREG #### [facility] [address] [place] [address] Dr. Hemanth KerrLEUKOCYTESNegativeNormalNEGATIVESalem Regional Medical CenterComment on above:Performed By: #### PREG #### [facility] [address] [place] [address] Dr. Hemanth KerrNitrite Ql (U)PositiveAbnormalNEGLancaster Municipal Hospital Comment on above:Performed By: #### PREG #### [facility] [address] [address] [address] Hemanth KerrpH (U)7.5 [pH]Normal5-9Salem Regional Medical CenterComment on above: Performed By: #### PREG #### [facility] [address] [place] [address] Dr. Hemanth KerrSPEC GRAVITY1.297Iwbsim9.005-<=1.025Salem Regional Medical CenterComment on above:Performed By: #### PREG #### [facility] [address] [place] [address] Dr. Hemanth Matthews PROTEINTRACENormalNEGATIVE/ TRACEThe [facility] HospitalComment on above:Performed By: #### PREG #### [facility] [address] [place] [address] Dr. Hemanth Morrison MICRO INDINDICATEDNoFirelands Regional Medical CenterComment on above: Performed By: #### PREG #### [facility] [address] [place] [address] Dr. Hemanth Lottbilgrantgen Qn (U)1.0 {Jose'U}/dLNormal0.2 - 1.0The [facility] HospitalComment on above:Performed By: #### PREG #### [facility] [address] [place] [address] Dr. Hemanth Ahn (BLD ALC)on [id number] NOTENOTE: 80 mg/dl is the legal limit for a blood alcohol levelSalem Regional Medical CenterComment on above: Performed By: #### CMP #### [facility] [address] [place] [address] Dr. Hemanth Chenanol [Mass/Vol]mg/dLNoFirelands Regional Medical CenterComment on above:Performed By: #### CMP #### [facility] [address] [place] [address] Dr. Hemanth FontanezCTATE/LACTIC ACIDon [id number] [Moles/Vol]0.7 mmol/L Normal0.4-2.0The [facility] on above:Performed By: #### LACT #### [facility] [address] [place] [address] Dr. Hemanth KerrLactate [Moles/Vol]9.0 mmol/LCritically high0.4-2.0The [facility] Hospitalment on above:Performed By: #### LACT #### [facility] [address] [place] [address] Dr. Hemanth Tolentino VENOUS BLOODon [id number] LYCGMI21.6 mmHgCritically low 40.0-52.0The [facility] HospitalComment on above:Performed By: #### PHVEN #### [facility] [address] [place] [address] Dr. Hemanth KerrpH VENOUS7.330Wkvyuw2.330-7.430The [facility] HospitalComment on above:Performed By: #### PHVEN #### [facility] [address] [place] [address] Dr. Hemanth KerrPOINT OF CARE GLUCOSEon 64-45-3078Ygdzjse [Mass/Vol]127 mg/dL Critically vxmz40-553Xdf [facility] HospitalComment on above:Performed By: #### CBC #### [facility] [address] [place] [address] Dr. Hemanth KerrPREG HCG QUALon [id number], QUALNegativeNormalNEGATIVE The [facility] HospitalComment on above:Performed By: #### PREG #### [facility] [address] [place] [address] Dr. Hemanth KerrPROF 14(COMP METB)on [id number] [Mass/Vol]3.7 g/dLNormal 3.4-5.0The [facility] HospitalComment on above:Performed By: #### LACT #### [facility] [address] [place] [address] Dr. Hemanth KerrAlbumin/Globulin [Mass ratio]1.3 {ratio}NormalThe [facility] HospitalComment on above:Performed By: #### LACT #### [facility] [address] [place] [address] Dr. Hemanth Valles [Catalytic activity/Vol]72 U/XIpdyti26-025Csr [facility] HospitalComment on above:Performed By: #### LACT #### [facility] [address] [place] [address] Dr. Hemanth Mathis [Catalytic activity/Vol]42 U/YIilztv29-98Irh [facility] HospitalComment on above:Performed By: #### LACT #### [facility] [address] [place] [address] Dr. Hemanth Anguiano gap [Moles/Vol]16.3 mmol/LNormalThe [facility] Comment on above:Performed By: #### LACT #### [facility] [address] [address] [address] Hemanth KerrAST [Catalytic activity/Vol]45 U/LCritically ytsk22-88Zbf [facility] HospitalComment on above:Performed By: #### LACT #### [facility] [address] [address] [address] Hemanth KerrBilirubin [Mass/Vol]0.4 mg/dLNormal0.2-1.0The [facility] Comment on above:Performed By: #### LACT #### [facility] [address] [address] [address] Hemanth KerrCalcium [Mass/Vol]8.8 mg/dLNormal8.5-10.1The [facility] Comment on above:Performed By: #### LACT #### [facility] [address] [address] [address] Hemanth KerrChloride [Moles/Vol]107 mmol/QHowgmr25-018Mto [facility] Comment on above:Performed By: #### LACT #### [facility] [address] [address] [address] Hemanth KerrCO2 [Moles/Vol]21.8 mmol/WImjweu98.0-32.0The [facility] Comment on above:Performed By: #### LACT #### [facility] [address] [address] [address] Hemanth KerrCreatinine [Mass/Vol]1.32 mg/dLCritically high0.55-1.02The [facility] HospitalComment on above:Performed By: #### LACT #### [facility] [address] [address] [address] Hemanth WatsonGFR-AF WJNEYWJQ33 mL/min/1.24e8Nxriqwzgko low>=60The [facility] HospitalComment on above:Performed By: #### LACT #### [facility] [address] [address] [address] Hemanth WatsonGFR-NON AF JVVFTCJS74 mL/min/1.34r1Kvudxjyzkw low>=60The [facility] HospitalComment on above:Performed By: #### LACT #### [facility] [address] [address] [address] Hemanth KerrGlobulin (S) [Mass/Vol]2.9 g/dLNormalThOhioHealth Doctors HospitalComment on above:Performed By: #### LACT #### [facility] [address] [address] [address] Hemanth KerrGlucose [Mass/Vol]143 mg/dLCritically pscm56-407Mmc [facility] HospitalComment on above:Performed By: #### LACT #### [facility] [address] [address] [address] Hemanth KerrPotassium [Moles/Vol]3.1 mmol/LCritically low3.5-5.1The [facility] HospitalComment on above:Performed By: #### LACT #### [facility] [address] [address] [address] Hemanth KerrProtein [Mass/Vol]6.6 g/dLNormal6.4-8.2The [facility] Comment on above:Performed By: #### LACT #### [facility] [address] [address] [address] Hemanth KerrSodium [Moles/Vol]142 mmol/KLaaloj800-558Ewt [facility] Comment on above:Performed By: #### LACT #### [facility] [address] [address] [address] Hemanth KerrUrea nitrogen [Mass/Vol]17.0 mg/dLNormal7.0-18.0The [facility] HospitalComment on above:Performed By: #### LACT #### [facility] [address] [address] [address] Hemanth KerrUrea nitrogen/Creatinine [Mass ratio]12.9 mg/mgNoFirelands Regional Medical CenterComment on above:Performed By: #### LACT #### [facility] [address] [address] [address] Hemanth KerrPROTIMEon [id number] Coag (PPP) [Relative time]0.97 {INR} NormalThe [facility] Hospitalment on above:Performed By: #### PT, PTT #### [facility] [address] [place] [address] Dr. Hemanth Calvillo [facility] Medical CenterComment on above:Result Comment: DESIRED INR: 2.0 - 3.0 CONDITIONS NOT LISTED BELOW 2.5 - 3.5 FOR PROSTHETIC HEART VALVE REPLACEMENT 2.5 - 3.5 RECURRENT THROMBOSIS Performed By: #### PT, PTT #### [facility] [address] [place] [address] Dr. Hemanth KerrPT Coag (PPP) [Time]10.3 sNormal9.0-11.6The [facility] Comment on above:Performed By: #### PT, PTT #### [facility] [address] [place] [address] Dr. Hemanth JamesonTon [id number] Coag (Bld) [Time]25.4 wGpccti75.3-36.2[facility] on above:Performed By: #### PT, PTT #### [facility] [address] [place] [address] Dr. Hemanth DelvalleICYLATEon 59-04-8185MGHZZMBVAC<2.8Normal<=19.9The [facility] on above:Performed By: #### CMP #### [facility] [address] [place] [address] Dr. Hemanth Martinez, HIGH SENSITIVITYon 75-64-5630WQSGNU6.2 pg/mLNormal 4.0-51.3The [facility] on above:Result Comment: CUT-OFF POINTS HAVE BEEN ESTABLISHED BASED ON THE FOURTH UNIVERSAL DEFINITIONS OF MYOCARDIAL INFARCTION. THE UPPER REFERENCE LIMIT (URL) OF TROPONIN, DEFINED THE 99TH PERCENTILE OF cTnI DISTRIBUTION IN A REFERENCE POPULATION, HAS BEEN CONFIRMED THE DECISION THRESHOLD FOR [place] DIAGNOSIS.Performed By: #### CMP #### [facility] [address] [place] [address] Dr. Hemanth Sam 51-41-3046SMZ4.476 uIU/mLNormal0.358-3.740The [facility] Hospitalment on above:Performed By: #### LACT #### [facility] [address] [address] [address] Hemanth Castelan MICROSCOPIC ONLYon [id number]H SEEN [facility] on above:Performed By: #### PREG #### [facility] [address] [address] [address] Hemanth Pritchett identified Cx Nom (U)INDICATEDNormalThe [facility] HospitalComment on above:Performed By: #### PREG #### [facility] [address] [address] [address] Hemanth MoultonSEENAbnormalNONE SEENFulton County Health Center on above: Performed By: #### PREG #### [facility] [address] [place] [address] Dr. Hemanth Shaw GRANULAR CASTRARENormalSalem Regional Medical CenterComcorewell health reed city hospital on above:Performed By: #### PREG #### [facility] [address] [place] [address] Dr. Hemanth Correaystals LM Nom (Urine sed)NONE SEENNormalNONE SEENFulton County Health Center on above:Performed By: #### PREG #### [facility] [address] [place] [address] Dr. Saxena ChangEpithelial cells LM Ql (Urine sed)RARENormalNONE SEEN /RAREThe [facility] on above:Performed By: #### PREG #### [facility] [address] [place] [address] Dr. Hemanth MurilloUSNONE SEENNormalNONE SEENFulton County Health Center on above:Performed By: #### PREG #### [facility] [address] [address] [address] Hemanth VidalYympfFWA5-2Ekjmmq2-0LyiFulton County Health Center on above:Performed By: #### PREG #### [facility] [address] [place] [address] Dr. Hemanth ShankarBC2-5AbnormalNONE SEENSalem Regional Medical CenterComment on above: Performed By: #### PREG #### [facility] [address] [place] [address] Dr. Hemanth KerrXR CHEST 1 Von [id number] CHEST 1 VEXAM: XR CHEST 1 V [...] Electronically authenticated by: KAMILLA MILLS Date: 2022-11-28 17:39NoFirelands Regional Medical CenterCULTURE URINEon [id number] URINEIsolate 1 Escherichia coli >100,000 cfu/mL of [...] Nitrofurantoin <=16 S F Trimethoprim/Sulfamethoxazole >=320 R FNormalSalem Regional Medical CenterComment on above:Performed By: #### URCX #### [facility] [address] [place] [address] Dr. Hemanth Toledo AUTO DIFFon [id number] #0.0 103/ulNormal0.0-0.1The [facility] HospitalComcorewell health reed city hospital on above:Performed By: #### CBC #### [facility] [address] [place] [address] Dr. Hemanth KerrBasophils/100 WBC (Bld)0.3 %Normal0.2-2.0The [facility] Comment on above:Performed By: #### CBC #### [facility] [address] [place] [address] Dr. Hemanth Pablo #0.0 103/ulNormal0.0-0.7The [facility] HospitalComment on above: Performed By: #### CBC #### [facility] [address] [place] [address] Dr. Hemanth Watsonosinophils/100 WBC (Bld)0.4 %Critically low0.9-7.0The [facility] HospitalComment on above:Performed By: #### CBC #### [facility] [address] [place] [address] Dr. Hemanth Watsonrythrocyte distribution width (RBC) [Ratio]12.2 %Tvzzzu59.0-15.0 The [facility] HospitalComment on above:Performed By: #### CBC #### [facility] [address] [place] [address] Dr. Hemanth KerrHematocrit (Bld) [Volume fraction]38.6 %Gwrbgc05.0-48.0The [facility] HospitalComment on above:Performed By: #### CBC #### [facility] [address] [place] [address] Dr. Hemanth KerrHemoglobin (Bld) [Mass/Vol]12.0 g/mPEjikij63.0-16.0The [facility] HospitalComment on above:Performed By: #### CBC #### [facility] [address] [place] [address] Dr. Hemanth Granados #0.07 10e3/ulCritically high0.00-0.03The [facility] Comment on above:Performed By: #### CBC #### [facility] [address] [place] [address] Dr. Hemanth Granados %0.7 %Critically high0.0-0.5The [facility] HospitalComment on above:Performed By: #### CBC #### [facility] [address] [place] [address] Dr. Hemanth Greco #1.2 103/ulNormal1.2-3.8The [facility] HospitalComment on above:Performed By: #### CBC #### [facility] [address] [place] [address] Dr. Hemanth Goetzhocytes/100 WBC (Bld)12.1 %Critically low20.5-60.0The [facility] HospitalComment on above:Performed By: #### CBC #### [facility] [address] [place] [address] Dr. Hemanth Brown DIFF REQNONormalThe [facility] HospitalComment on above: Performed By: #### CBC #### [facility] [address] [place] [address] Dr. Hemanth Murphy (RBC) [Entitic mass]28.0 xzFlsljj33.7-34.0The [facility] HospitalComment on above:Performed By: #### CBC #### [facility] [address] [place] [address] Dr. Hemanth Murphy (RBC) [Mass/Vol]31.1 g/qQDrklod92.9-35.2The [facility] HospitalComment on above:Performed By: #### CBC #### [facility] [address] [place] [address] Dr. Hemanth Murphy (RBC) [Entitic vol]90.2 wAAvvoup89.0-99.0The [facility] HospitalComment on above:Performed By: #### CBC #### [facility] [address] [place] [address] Dr. Hemanth Chavira #0.7 103/ulNormal0.3-0.8The [facility] HospitalComment on above:Performed By: #### CBC #### [facility] [address] [place] [address] Dr. Hemanth Bazanocytes/100 WBC (Bld)6.9 %Normal1.7-12.0The [facility] Comment on above:Performed By: #### CBC #### [facility] [address] [place] [address] Dr. Hemanth PosadasUT #8.1 103/ulCritically high1.4-6.5The [facility] Comment on above:Performed By: #### CBC #### [facility] [address] [place] [address] Dr. Hemanth Posadasutrophils/100 WBC (Bld)79.6 %Critically high43.0-75.0The [facility] HospitalComment on above:Performed By: #### CBC #### [facility] [address] [place] [address] Dr. Hemanth KerrPlatelet mean volume (Bld) [Entitic vol]10.8 fLNormal9.5-13.5The [facility] HospitalComment on above:Performed By: #### CBC #### [facility] [address] [place] [address] Dr. Hemanth KerrPLT452 103/ulCritically lipd686-794Afd [facility] HospitalComment on above:Performed By: #### CBC #### [facility] [address] [place] [address] Dr. Hemanth KerrRBC4.28 106/ulNormal4.20-5.40The [facility] HospitalComment on above:Performed By: #### CBC #### [facility] [address] [place] [address] Dr. Hemanth KerrWBC10.1 103/ulNormal4.0-11.0The [facility] HospitalComment on above:Performed By: #### CBC #### [facility] [address] [place] [address] Dr. Hemanth KerrCT ABD/PELVIS WO CONon [id number] ABD/PELVIS WO CONEXAMINATION: CT ABD/PELVIS WO CON [...] calculi or obstructive uropathy. Electronically authenticated by: CHRISTNIE SÁNCHEZ Date: 2022-10-11 14:[address] [place] [address] URINE PROFILEon [id number] Ql (U)NegativeNormal NEGATIVESalem Regional Medical CenterComment on above:Performed By: #### LACT #### [facility] [address] [place] [address] Dr. Hemanth Goodwin (U)CLEARNormalCLEARThe [facility] HospitalComment on above: Performed By: #### LACT #### [facility] [address] [address] [address] Hemanth Vang (U)LT. YELLOWNormalYELLOWSalem Regional Medical CenterComment on above:Performed By: #### LACT #### [facility] [address] [address] [address] Hemanth Hewitt micrscopic examination will be performed if indicated. NormalThe [facility] HospitalComment on above:Performed By: #### LACT #### [facility] [address] [place] [address] Dr. Hemanth Cortezose Ql (U)NegativeNormalNEGATIVEThe Comfort HospitalComment on above:Performed By: #### LACT #### [facility] [address] [address] [address] Hemanth KerrHemoglobin Ql (U)LARGEAbnormalNEGATIVESalem Regional Medical Center Comment on above:Performed By: #### LACT #### [facility] [address] [address] [address] Hemanth Sandovalones Ql (U)NegativeNormalNEGATIVESalem Regional Medical CenterComment on above:Performed By: #### LACT #### [facility] [address] [address] [address] Hemanth OrtizOCYTESSMALLAbnormalNEGATIVESalem Regional Medical CenterComment on above:Performed By: #### LACT #### [facility] [address] [place] [address] Dr. Hemanth KerrNitrite Ql (U)NegativeNormalNEGATIVESalem Regional Medical CenterComment on above:Performed By: #### LACT #### [facility] [address] [place] [address] Dr. Hemanth KerrpH (U)6.5 [pH]Normal5-9[facility] Medical CenterComment on above: Performed By: #### LACT #### [facility] [address] [address] [address] Hemanth KerrProtein (U) [Mass/Vol]30 mg/dLAbnormalNEGATIVE/ TRACEThe [facility] HospitalComment on above:Performed By: #### LACT #### [facility] [address] [address] [address] Hemanth KerrSPEC GRAVITY<=1.823Vggvqxqm3.005-<=1.025[facility] Comment on above:Performed By: #### LACT #### [facility] [address] [place] [address] Dr. Hemanth Morrison MICRO INDINDICATEDNoalThOhioHealth Doctors HospitalComment on above: Performed By: #### LACT #### [facility] [address] [address] [address] Hemanth oLttbilinogen Qn (U)1.0 {Jose'U}/dLNormal0.2 - 1.0The [facility] Hospitalment on above:Performed By: #### LACT #### [facility] [address] [address] [address] Hemanth AndreaG HCG QUALon [id number], QUALNegativeNormalNEGATIVE The [facility] HospitalComment on above:Performed By: #### PREG #### [facility] [address] [address] [address] Hemanth KerrPROF CHEM 8 (BAS METB)on [id number] gap [Moles/Vol]9.4 mmol/LNormalThe [facility] HospitalComment on above:Performed By: #### LACT #### [facility] [address] [place] [address] Dr. Hemanth KerrCalcium [Mass/Vol]8.8 mg/dLNormal8.5-10.1The [facility] Comment on above:Performed By: #### LACT #### [facility] [address] [place] [address] Dr. Hemanth KerrChloride [Moles/Vol]97 mmol/LCritically uee31-782Cqj [facility] HospitalComment on above:Performed By: #### LACT #### [facility] [address] [place] [address] Dr. Hemanth KerrCO2 [Moles/Vol]32.4 mmol/LCritically high21.0-32.0The [facility] HospitalComment on above:Performed By: #### LACT #### [facility] [address] [place] [address] Dr. Hemanth KerrCreatinine [Mass/Vol]0.65 mg/dLNormal0.55-1.02The [place] Hospitalment on above:Performed By: #### LACT #### [facility] [address] [place] [address] Dr. Saxena ChangEGFR-AF MACANESE>60Normal>=60The [facility] HospitalComment on above:Performed By: #### LACT #### [facility] [address] [address] [address] Hemanth WatsonGFR-NON AF MACANESE>60Normal>=60The [facility] HospitalComment on above:Performed By: #### LACT #### [facility] [address] [address] [address] Hemanth KerrGlucose [Mass/Vol]117 mg/dLCritically ovyd87-110Tse [facility] HospitalComment on above:Performed By: #### LACT #### [facility] [address] [address] [address] Hemanth KerrPotassium [Moles/Vol]2.8 mmol/LCritically low3.5-5.1The [facility] HospitalComment on above:Performed By: #### LACT #### [facility] [address] [place] [address] Dr. Hemanth KerrSodium [Moles/Vol]135 mmol/LCritically cug160-823Wyv [facility] HospitalComment on above:Performed By: #### LACT #### [facility] [address] [place] [address] Dr. Hemanth KerrUrea nitrogen [Mass/Vol]8.0 mg/dLNormal7.0-18.0The [facility] HospitalComment on above:Performed By: #### LACT #### [facility] [address] [place] [address] Dr. Hemanth KerrUrea nitrogen/Creatinine [Mass ratio]12.3 mg/mgNoFirelands Regional Medical CenterComment on above:Performed By: #### LACT #### [facility] [address] [place] [address] Dr. Hemanth Castelan MICROSCOPIC ONLYon [id number]U SEEN The [facility] HospitalComment on above:Performed By: #### LACT #### [facility] [address] [place] [address] Dr. Hemanth Erwincteria identified Cx Nom (U)INDICATEDNoFirelands Regional Medical CenterComment on above:Performed By: #### LACT #### [facility] [address] [place] [address] Dr. Hemanth Rosas SEENNormalNONE SEENSalem Regional Medical CenterComment on above:Performed By: #### LACT #### [facility] [address] [place] [address] Dr. Hemanth KerrCrystals LM Nom (Urine sed)NONE SEENNormalNONE SEENSalem Regional Medical CenterComment on above:Performed By: #### LACT #### [facility] [address] [place] [address] Dr. Saxena ChangEpithelial cells LM Ql (Urine sed)FEWAbnormalNONE SEEN /RARESalem Regional Medical CenterComment on above:Performed By: #### LACT #### [facility] [address] [place] [address] Dr. Hemanth MurilloUSMARIO SEENNormalNONE SEENFulton County Health Center on above:Performed By: #### LACT #### [facility] [address] [place] [address] Dr. Hemanth VidalFvtgxSIG9-1Pnzgqa3-1WpgFulton County Health Center on above:Performed By: #### LACT #### [facility] [address] [place] [address] Dr. Hemanth ShankarMftveKXM97-39ThvxmcrnWHFK SEENFulton County Health Center on above: Performed By: #### LACT #### [facility] [address] [place] [address] Dr. Hemanth Escalona QUANT HCGon [id number] QUANT66 mIU/mLNormalSalem Regional Medical CenterComcorewell health reed city hospital on above:Performed By: #### CMP #### [facility] [address] [place] [address] Dr. Hemanth Snider RANGESEE Glenbeigh HospitalComcorewell health reed city hospital on above: Result Comment: 5-50 0.2-1 WEEK 50-500 1-2 WEEKS 100-5,000 2-3 WEEKS 500-10,000 3-4 WEEKS 1,000-50,000 4-5 WEEKS 10,000-100,000 5-6 WEEKS 15,000-200,000 6-8 WEEKS 10,000-100,000 2-3 MONTHSPerformed By: #### CMP #### [facility] [address] [place] [address] Dr. Hemanth Toledo AUTO DIFFon [id number] #0.0 103/ulNormal0.0-0.1[facility] Medical CenterComment on above:Performed By: #### LACT #### [facility] [address] [place] [address] Dr. Hemanth KerrBasophils/100 WBC (Bld)0.6 %Normal0.2-2.0[facility] Comment on above:Performed By: #### LACT #### [facility] [address] [place] [address] Dr. Hemanth Pablo #0.1 103/ulNormal0.0-0.7The [facility] HospitalComment on above: Performed By: #### LACT #### [facility] [address] [place] [address] Dr. Hemanth Watsonosinophils/100 WBC (Bld)1.3 %Normal0.9-7.0[facility] Comment on above:Performed By: #### LACT #### [facility] [address] [place] [address] Dr. Hemanth Watsonrythrocyte distribution width (RBC) [Ratio]12.0 %Sqlkeh77.0-15.0 [facility] Medical CenterComment on above:Performed By: #### LACT #### [facility] [address] [place] [address] Dr. Hemanth KerrHematocrit (Bld) [Volume fraction]35.6 %Critically low36.0-48.0 [facility] Medical CenterComment on above:Performed By: #### LACT #### [facility] [address] [place] [address] Dr. Hemanth KerrHemoglobin (Bld) [Mass/Vol]12.4 g/qOWisaar65.0-16.0[facility] Medical CenterComment on above:Performed By: #### LACT #### [facility] [address] [place] [address] Dr. Hemanth Granados #0.02 10e3/ulNormal0.00-0.03The [facility] HospitalComment on above:Performed By: #### LACT #### [facility] [address] [place] [address] Dr. Hemanth Granados %0.3 %Normal0.0-0.5The [facility] HospitalComment on above: Performed By: #### LACT #### [facility] [address] [place] [address] Dr. Hemanth Greco #1.9 103/ulNormal1.2-3.8The [facility] HospitalComment on above:Performed By: #### LACT #### [facility] [address] [place] [address] Dr. Hemanth Goetzhocytes/100 WBC (Bld)27.5 %Iiqxle10.5-60.0The [facility] HospitalComment on above:Performed By: #### LACT #### [facility] [address] [place] [address] Dr. Hemanth FerrariUAL DIFF REQNONormalThe [facility] HospitalComment on above: Performed By: #### LACT #### [facility] [address] [place] [address] Dr. Hemanth Murphy (RBC) [Entitic mass]29.6 kuAwrmts70.7-34.0The [facility] HospitalComment on above:Performed By: #### LACT #### [facility] [address] [place] [address] Dr. Hemanth Murphy (RBC) [Mass/Vol]34.8 g/tCGflbff52.9-35.2The [facility] HospitalComment on above:Performed By: #### LACT #### [facility] [address] [place] [address] Dr. Hemanth Murphy (RBC) [Entitic vol]85.0 bGAwizds04.0-99.0The [facility] HospitalComment on above:Performed By: #### LACT #### [facility] [address] [place] [address] Dr. Hemanth Chavira #0.4 103/ulNormal0.3-0.8The [facility] HospitalComment on above:Performed By: #### LACT #### [facility] [address] [place] [address] Dr. Hemanth Bazanocytes/100 WBC (Bld)6.3 %Normal1.7-12.0The [facility] Comment on above:Performed By: #### LACT #### [facility] [address] [place] [address] Dr. Hemanth Joseph #4.5 103/ulNormal1.4-6.5The [facility] HospitalComment on above:Performed By: #### LACT #### [facility] [address] [place] [address] Dr. Hemanth Posadasutrophils/100 WBC (Bld)64.0 %Tdrutz01.0-75.0The [facility] HospitalComment on above:Performed By: #### LACT #### [facility] [address] [place] [address] Dr. Hemanth Chavezlet mean volume (Bld) [Entitic vol]10.6 fLNormal9.5-13.5The [facility] HospitalComment on above:Performed By: #### LACT #### [facility] [address] [place] [address] Dr. Hemanth KerrPLT247 103/hfVzbsyq293-726Clm [facility] HospitalComment on above: Performed By: #### LACT #### [facility] [address] [place] [address] Dr. Hemanth KerrRBC4.19 106/ulCritically low4.20-5.40The [facility] HospitalComment on above:Performed By: #### LACT #### [facility] [address] [place] [address] Dr. Hemanth KerrWBC7.0 103/ulNormal4.0-11.0The [facility] HospitalComment on above: Performed By: #### LACT #### [facility] [address] [place] [address] Dr. Hemanth Connellyd-19 PCR (CVDTB)on [id number]-CoV-2 (COVID-19) RNA ELMO+probe Ql (Unsp spec)Not detectedNormalNOT DETECTEDSalem Regional Medical Center Comment on above:Result Comment: This test is not yet approved or cleared by the [place] FDA. When there are no FDA-approved or cleared tests available, and other criteria are met, FDA can make tests available under an emergency access mechanism called an Emergency Use Authorization (EUA). The EUA for this test is supported by the [place] of Health and Human Service's (HHS's) declaration [...] consistent with SARS-CoV-2.Performed By: #### CMP #### [facility] [address] [place] [address] Dr. Hemanth Escalona QUANT HCGon [id number] mIU/mLNormalSalem Regional Medical CenterComment on above:Performed By: #### PREG #### [facility] [address] [place] [address] Dr. Hemanth Snider [facility] CenterComment on above: Result Comment: 5-50 0.2-1 WEEK 50-500 1-2 WEEKS 100-5,000 2-3 WEEKS 500-10,000 3-4 WEEKS 1,000-50,000 4-5 WEEKS 10,000-100,000 5-6 WEEKS 15,000-200,000 6-8 WEEKS 10,000-100,000 2-3 MONTHSPerformed By: #### PREG #### [facility] [address] [place] [address] Dr. Hemanth Escalona QUANT HCGon [id number] mIU/mLNWexner Medical CenterComment on above:Performed By: #### PREG #### [facility] [address] [id number] [address] Hemanth Snider [facility] CenterComment on above: Result Comment: 5-50 0.2-1 WEEK 50-500 1-2 WEEKS 100-5,000 2-3 WEEKS 500-10,000 3-4 WEEKS 1,000-50,000 4-5 WEEKS 10,000-100,000 5-6 WEEKS 15,000-200,000 6-8 WEEKS 10,000-100,000 2-3 MONTHSPerformed By: #### PREG #### [facility] [address] [place], [place] [id number] Dr. Hemanth Fairbanks PREG TVon [id number] PREG TVEXAMINATION: US PREG TV HISTORY: Routine [...] Electronically authenticated by: CHRISTINE SÁNCHEZ Date: 2022-08-14 16:22[facility] CenterUS PREG TVon [id number] PREG TVEXAMINATION: US PREG TV HISTORY: Missed [...] Electronically authenticated by: CHRISTINE SÁNCHEZ Date: 2022-07-27 17:04[facility] Medical CenterXR CHEST 1 Von [id number] CHEST 1 VPORTABLE CHEST X-RAY. INDICATION: Cough. COMPARISON: 10/11/2021 TECHNIQUE: Single AP portable chest radiograph. FINDINGS: TUBES AND LINES: None. LUNGS: Lungs are clear. PLEURA: No effusions or pneumothorax. HEART AND MEDIASTINUM: Within normal limits for portable technique. OSSEOUS STRUCTURES: No acute abnormality. IMPRESSION: No acute findings. Electronically authenticated by: FELIX WEBB Date: 2022-07-09 12:06[facility] Medical CenterCNPNon [id number] ([place]) NOE DURAN ([id number]) 1995 F Date Time Provider Department 12/12/21 KING SUAZO During your visit today, we recorded the following information about you: Angelia Almazan 12/12/2021 11:16 AM Signed Pleases sign pending new cbc order. Thanks, Angelia Almazan MA Allergies As of Date: 12/12/2021 (No Known Allergies) Date Reviewed: 12/12/2021 Reviewed by: Jasmin Zuñiga APRN.WORSTED WINDER - Fully Assessed Reason for Visit: Lab Orders [168] Primary Visit Diagnosis:Iron deficiency anemia, unspecified iron deficiency anemia type [D50.9] Order(s):CBC + DIFF [SQCBCDIF] Order #: [id number] FUTURE Prescriptions as of 12/12/2021 - gabapentin (NEURONTIN) 400 mg capsule Take by mouth. - Polysaccharide Iron Complex 180 mg iron cap Take by mouth. - aspirin 81 mg cap Take 81 mg by mouth once daily. - ONDANSETRON HCL ORAL Take 4 mg by mouth as needed. Problem List As Of Date: 12/12/2021 (None) Encounter Status:Closed by JASMIN ZUÑIGA on 12/12/21[facility] AdministrationPNon [id number] ([place]) NOE DURAN ([id number]) 1995 F Date Time Provider Department 11/10/21 [...] B12 is slightly low. Options would be mgom-doh-emvrpaz B12 tablets 2 mg daily or start a monthly injection. Thanks, MELANY De La O RN 11/10/2021 3:40 PM Signed Informed pt of Dr Suazo's message. Pt verbalized understanding and states [facility] told her only 2 doses of [...] Status:Closed by JENNYFER DE LA O on 11/10/21[facility] HospitalCNOVSPon [id number] ([place]) Office ([place]) OSCARNOE RODRIGUEZ ([id number]) 1995 F Date Time Provider Department 11/08/21 [...] shortness of breath, and is seen at [facility] emergency room. Labs revealed a hemoglobin of [...] mood/affect changes, r (more content not included)... NormalAv[facility] Metabolic Panelon [id number] [Mass/Vol]3.6 g/dLLow3.9-4.9CMarymount Hospital on above:Performed By: #### SERFOL, IRON, B12, FERR #### [facility] [address], [place] [address] KNY [Catalytic activity/Vol]79 U/OUvwfbx26-850UjdmusesyMarietta Memorial Hospital on above:Performed By: #### SERFOL, IRON, B12, FERR #### [facility] [address], [place] [address] AFN [Catalytic activity/Vol]8 U/LNormal7-38[facility] on above:Performed By: #### SERFOL, IRON, B12, FERR #### [address] [address] Nhxqg gap [Moles/Vol]9 mmol/LNormal9-18[facility] Comment on above:Performed By: #### SERFOL, IRON, B12, FERR #### [address] [address] BYO [Catalytic activity/Vol]13 U/QFqyjhq27-73XldqogptpAshtabula County Medical CenterComment on above:Performed By: #### SERFOL, IRON, B12, FERR #### [address] [address] Hrlxvszhv [Mass/Vol]0.2 mg/dLNormal0.2-1.3CPremier Health Miami [facility] Comment on above:Performed By: #### SERFOL, IRON, B12, FERR #### [address] [address] Knrdpth [Mass/Vol]9.3 mg/dLNormal8.5-10.2CPremier Health Miami [facility] Hospital [facility] Comment on above:Performed By: #### SERFOL, IRON, B12, FERR #### [address] [place] [address] Yvnsjpri [Moles/Vol]102 mmol/QXhoyhs84-516RqtnnqfsmAshtabula County Medical Center Comment on above:Performed By: #### SERFOL, IRON, B12, FERR #### [address] [address] BP0 [Moles/Vol]23 mmol/IImxorh02-22QuhutmzdgAshtabula County Medical CenterComcorewell health reed city hospital on above:Performed By: #### SERFOL, IRON, B12, FERR #### [address] [address] Xbjmzdplav [Mass/Vol]0.55 mg/dLLow0.58-0.96[facility] on above:Performed By: #### SERFOL, IRON, B12, FERR #### [facility] [address] [place], [place] [id number] [phone]- Amer.>60NormalClevelAnson Community HospitalComment on above:Performed By: #### SERFOL, IRON, B12, FERR #### [facility] [address] [place] [id number] [phone]-All Other Races>60NormalClevelAnson Community HospitalComment on above:Result Comment: eGFR (Estimated GFR) [...] By: #### SERFOL, IRON, B12, FERR #### [facility] [address] [id number] [phone] [Mass/Vol]96 mg/kTVgpvxu16-37AsedkwwtjAshtabula County Medical Center Comment on above:Result Comment: The [place] [employer] (ADA) provides guidance for cutoff [...] Standards of Medical Care in Diabetes 2016, [place] [employer]. Diabetes Care. 2016.39(Suppl 1).Performed By: #### SERFOL, IRON, B12, FERR #### [place] [address] Dumeutniw [Moles/Vol]3.3 mmol/LLow3.7-5.1CPremier Health Miami [facility] Hospital [facility] Comment on above:Performed By: #### SERFOL, IRON, B12, FERR #### [address] [address] Uiwvugn [Mass/Vol]6.3 g/dLNormal6.3-8.0[facility] Comment on above:Performed By: #### SERFOL, IRON, B12, FERR #### [place] [address] Tdcwbp [Moles/Vol]134 mmol/VSee274-310IkcqksvibAshtabula County Medical Center Comment on above:Performed By: #### SERFOL, IRON, B12, FERR #### [place] [address] Gwah nitrogen [Mass/Vol]4 mg/dLLow7-21[facility] Comment on above:Performed By: #### SERFOL, IRON, B12, FERR #### [place] [address] Yjxnmchijj 43-30-9232Jflcsgiw [Mass/Vol]203.0 ng/mPHuetud96.7-205.1 [facility] CenterComment on above:Performed By: #### SERFOL, IRON, B12, FERR #### [place] [address] Xogeze, Serumon 22-57-9667Ambmpl [Mass/Vol]8.5 ng/mLNormal>4.7 [facility] CenterComment on above:Performed By: #### SERFOL, IRON, B12, FERR #### [place] [address] [place] [address] Adbj and TIBCon 35-85-9666Tloj [Mass/Vol]93 ug/gHWtwzbe19-162 [facility] CenterComment on above:Performed By: #### SERFOL, IRON, B12, FERR #### [place] [address] [place] [address] USRQ060 ug/qQUoep321-963XkpmcpgimAshtabula County Medical CenterComment on above: Performed By: #### SERFOL, IRON, B12, FERR #### [place] [address] [place] [address] Gbbzhieihew Vnnqzzaz79 %Zyryhc54-90NzuqgcmxhAshtabula County Medical CenterComment on above:Performed By: #### SERFOL, IRON, B12, FERR #### [place] [id number] [phone] CBCDIF (for [facility] use only)on 96-46-8002Uvl Baso<0.03Normal <0.11CPremier Health Miami Valley Hospital SouthAbs Mono0.57 k/uLNormal<0.87[facility] CenterAbs Neut4.67 k/uLNormal1.45-7.50[facility] CenterAbsolute nRBC <0.01Normal<0.01[facility] CenterBasophils/100 WBC (Bld)0.3 %Normal [facility] CenterDTYPEAuto DiffNormalCPremier Health Miami Valley Hospital South Eosinophils (Bld) [#/Vol]0.05 10*3/uLNormal<0.46[facility] Eosinophils/100 WBC (Bld)0.8 %NormalAshtabula County Medical CenterErythrocyte distribution width (RBC) [Ratio]29.9 %High11.5-15.0[facility] Hematocrit (Bld) [Volume fraction]32.6 %Low36.0-46.0[facility] Hemoglobin (Bld) [Mass/Vol]10.1 g/dLLow11.5-15.5CPremier Health Miami Valley Hospital South Lymphocytes (Bld) [#/Vol]1.25 10*3/uLNormal1.00-4.00[facility] Lymphocytes/100 WBC (Bld)19.1 %NormalAshtabula County Medical CenterMCH25.1 pGLow 26.0-34.0[facility] SouthHC (RBC) [Mass/Vol]31.0 g/xPQudray65.5-36.0 [facility] CenterMCV (RBC) [Entitic vol]81.1 nOZhuvkf80.0-100.0 [facility] CenterMonocytes/100 WBC (Bld)8.7 %NormalAshtabula County Medical CenterNeutrophils/100 WBC (Bld)71.1 %NormalAshtabula County Medical CenterNRBCs0.0 /100 IPGYnexei8OtbbvmqlzAshtabula County Medical CenterPlatelet mean volume (Bld) [Entitic vol]10.3 fLNormal9.0-12.7CPremier Health Miami Valley Hospital SouthPlatelets (Bld) [#/Vol]223 10*3/gAVkodeb556-467CslejqtrfMarietta Memorial Hospital on above:Result Comment: Result checked and verified Sample checked for a clot.RBC (Bld) [#/Vol]4.02 10*6/uLNormal3.90-5.20[facility] CenterWBC (Bld) [#/Vol]6.56 10*3/uLNormal3.70-11.00[facility] Medical CenterReticulocyteon 37-76-7113Yux Retic0.140 M/uLHigh0.0180-0.1000[facility] on above:Performed By: #### SERFOL, IRON, B12, FERR #### [facility] [address] [place] [id number] [phone]%3.5 %High0.4-2.0[facility] on above: Performed By: #### SERFOL, IRON, B12, FERR #### [facility] [address] [place] [address] Ouoyszw B12on 21-86-1343Mmjdzqofh (Vitamin B12) [Mass/Vol]218 pg/mL Ljn189-8834CxryixaxpMarymount Hospital on above:Performed By: #### SERFOL, IRON, B12, FERR #### [facility] [address] [place], [place] [address] PNNak 27-98-7218Wlncqftybtn distribution width (RBC) [Ratio]14.7 % High11.8 - 14.4 %[facility]- [place], KYHematocrit (Bld) [Volume fraction]36.0 %Low 36.3 - 47.1 %[facility], KYHemoglobin (Bld) [Mass/Vol]10.9 g/dLLow11.9 - 15.1 g/dLUc Health- [place], KYInterpretation and review of laboratory results AbnormalUc Health- [place], KYMCH (RBC) [Entitic mass]26.2 pg25.2 - 33.5 pgUc Health- [place], KYMCHC (RBC) [Mass/Vol]30.3 g/dL28.4 - 34.8 g/dLUc Health- [place], [place] MCV (RBC) [Entitic vol]86.5 fL82.6 - 102.9 fLSuburban Community Hospital & [facility] Health- [place], KYPlatelet mean volume (Bld) [Entitic vol]10.8 fL8.1 - 13.5 fLUc Health- [place], KYPlatelets (Bld) [#/Vol]328 10*3/uLSuburban Community Hospital & [facility]- [place], KYRBC (Bld) [#/Vol]4.16 10*6/uL3.95 - 5.11 m/uLSuburban Community Hospital & [facility]- [place], KYWBC (Bld) [#/Vol]0.0 10*3/uL0.0 per 100 WBCSuburban Community Hospital & [facility] Health- [place], KYWBC (Bld) [#/Vol]5.7 10*3/uLSuburban Community Hospital & [facility]- [place], KYComprehensive Metabolic Panelon 36-19-5721Rksezvk [Mass/Vol]3.4 g/dLLow3.5 - 5.2 g/dLUc Health- [place], KYAlbumin/Globulin [Mass ratio]1.5 {ratio}[facility]- [place], KYALP [Catalytic activity/Vol]40 U/L35 - 104 U/LMercy Health- [place], KYALT [Catalytic activity/Vol]12 U/L5 - 33 U/LMercy Health- [place], KYAnion gap [Moles/Vol]9 mmol/L9 - 17 mmol/LMercy Health- [place], KYAST [Catalytic activity/Vol]12 U/L<32[facility]- [place], KYBilirubin Ql (U)<0.10Low0.3 - 1.2 mg/dLMercy Health- [place], KYBun/Cre Ugxwo57YbjdBhloa Health- [place], KYCalcium [Mass/Vol]9.3 mg/dL8.6 - 10.4 mg/dLMercy Health- [place], KYChloride [Moles/Vol]109 mmol/LHigh98 - 107 mmol/LMercy Health- [place], KYCO2 [Moles/Vol]26 mmol/L20 - 31 mmol/LMercy Health- [place], KYCreatinine [Mass/Vol]0.57 mg/dL0.5 - 0.9 mg/dLMercy Health- [place], KYGFR >60 >60 mL/minMercy Health- [place], KYGFR Non->60>60 mL/minMercy Health- [place], KYGlucose [Mass/Vol]92 mg/dL70 - 99 mg/dLMercy Health- [place], KYInterpretation and review of laboratory resultsAbnormalMercy Health- [place], KYPotassium [Moles/Vol]3.8 mmol/L3.7 - 5.3 mmol/LMercy Health- [place], KYProtein [Mass/Vol]5.7 g/dLLow6.4 - 8.3 g/dLMercy Health- [place], KYSodium [Moles/Vol]144 mmol/L135 - 144 mmol/LMercy Health- [place], KYUrea nitrogen [Mass/Vol]15 mg/dL6 - 20 mg/dLMercy Health- [place], KYHCG Qualitative, Serumon 50-47-4980qXJ QualNegativeNEGATIVEMer Health- [place], KYComment on above:Specimens with hCG levels near the threshold of the test (25 mIU/mL) may give a negative or indeterminate result. In such cases, another test should be performed with a new specimen in 48-72 hours. If early is suspected clinically in this setting, correlation with quantitative serum b-hCG level is suggested. [employer] has confirmed the use of plasma for this test. This has not been cleared or approved by the U.S. Food and Drug Administration. The FDA has determined that such clearance is not necessary. HIV Screenon 99-66-9823MIU Ag/AbNONREACTIVEBirmingham, [place] Comment on above:No laboratory evidence of HIV infection. If acute HIV infection is suspected, consider testing for HIV-1 RNA. Hepatitis Panel, Acuteon 99-14-3985MWX IgM IA Qn (S)NONREACTIVENONREFairfield Medical Center, RIHep B Core Ab, IgMNONREACTIVEBirmingham, [place] Hepatitis B Surface AgNONREACTIVERegency Hospital Cleveland East, RIHepatitis C Ab REACTIVEAbnormBanner Fort Collins Medical Center, RIComment on above: The hepatitis C procedure used [...] Health Department Interpretation and review of laboratory resultsAbnoConifer, [place] Metabolic Panelon 40-80-8594OYI/1.73 sq M predicted among non-blacks MDRD (S/P/Bld) [Vol rate/Area][place], KYComnelson on above:Stage 1: Some kidney damage normal [...] body mass. Additional eGFR calculator available at: http://www.[employer]/multiple_crcl_2012.htm Microscopic Urinalysison 67-90-8966Jindeqjbq, UANOT REPORTEDNoneMercy Health- [place], KYBacteria, UANOT REPORTEDNoneMercy Health- [place], KYCasts UANOT REPORTED/LPF [facility]- [place], KYCrystals, UA5 TO 10AbnormalNone /HPFMercy Health- [place], [place] Crystals, UACALCIUM OXALATEAbnormalNone /HPFMercy Health- [place], KYEpithelial Cells UA0 TO 2[facility]- [place], KYInterpretation and review of laboratory results AbnormalMercy Health- [place], KYMucus, UATRACEAbnormalNoneMercy Health- [place], KYOther Observations UANOT REPORTEDNOT REQ.[facility]- [place], KYRBC (U) [#/Vol]NoneMercy Health- [place], KYRenal Epithelial, UANOT REPORTED0 /HPFMercy Health- [place], [place] Trichomonas, UANOT REPORTEDNoneMercy Health- [place], KYWBC, UA0 TO 2[facility]- [place], KYYeast, UANOT REPORTEDNoneMercy Health- [place], [place]-[facility]- [place] Urinalysis Reflex to Cultureon 54-41-9573Lkdabzcog UrineNegativeNEGATIVEMercy Health- [place], KYColor, UAYELLOWYELLOWMercy Health- [place], KYGlucose, UrNegative NEGATIVEMercy Health- [place], KYInterpretation and review of laboratory results AbnormalMercy Health- [place], KYKetones Ql (U)NegativeNEGATIVEMercy Health- [place], [place] Leukocyte esterase Test strip Ql (U)NegativeNEGATIVEMercy Health- [place], KYNitrite, UrineNegativeNEGATIVEMercy Health- [place], KYpH, UA6.5[facility]- [place], KYProtein (U) [Mass/Vol]NegativeNEGATIVEMercy Health- [place], KYSpecific [place], UA1.025High [facility]- [place], KYTurbidity UACLEARCLEARMercy Health- [place], KYUrinalysis CommentsNOT REPORTEDMercy Health- [place], KYUrine HgbNegativeNEGATIVEMercy Health- [place], KYUrobilinogen, UrineNormalNormalMercy Health- [place], KYED Clinical Summaryon [id number] Clinical Summary [facility] [address] [place] [address] ED Clinical Summary Person Information Name: Kathryn Duran/iKrsty Age: 25 Years : 1995 Sex: Female PCP: Marital Status: Single Phone: Race: White Ethnicity: Not or Language: German Visit Reason: Drug withdrawal; Drug withdrawal Acuity: 3 Enc Type: Emergency Med Service: Emergency Medicine Arrival: 03/16/2020 20:10:45 Discharge: 03/17/2020 02:12:00 LOS: 000 06:02 Checkin: 03/16/2020 20:10:45 Checkout: 03/17/2020 02:12:00 Dispo Type: Home or Self Care Address: [address] [place] [id number] Provider Notes: Diagnosis: 1:Affective disorder; 2:Drug usage [...] range between ( 27.2 and 40.8 ) [place] Auto: 11.4 % -- Normal range between [...] range between ( 36.0 and 46.0 ) [place] Absolute: 1.5 x10 MCH: 27.4 pg -- [...] 03/16/2020 20:20:41 Follow up: With: Address: When: [facility] [place], [place] Within 1 to 2 days Discharge Orders: Discharge Patient 03/17/20 1:45:00 EDT, Discharge to Home, Self Patient Education Information: Understanding Methamphetamine Abuse and Addiction; Treating Affective (Mood) Disorders [facility] Poison Help line: . [facility] Hotline: [place] Tobacco Quit Line: [place], [place]) [address]: [phone] [place], [place]) [address]: [phone] [facility] [address] [place], [place]: [phone] [facility]zer HospitalhCG Quantitativeon 73-32-3279Plli hCG Qnt1.7 mIU/mLNormal0.0-4.9BSelect Medical Specialty Hospital - AkronComment on above:Result Comment: 0.0 - 4.9 Negative for 5.0 - 25.0 Indeterminant for : Suggest repeat in 72 hours. >25.0 Positive for PregnancyPerformed By: #### HCG ####[facility] [place] [address].UA Microscp Aon 99-27-3372WF Hyline Cast Qual>20AbnormalNegativeBlCincinnati Children's Hospital Medical CenterComment on above:Performed By: #### CD:[id number] ####[address] [address]PU MucusPresentAbnormalAbsentHolzer HospitalComment on above:Performed By: #### CD:[id number] ####[address] [address]TM RBC Quant12 /HPFHigh0-5 [facility] HospitalComment on above:Performed By: #### CD:[id number] ####[address] [address]IM Squepi Cells Quant6 /HPFNormal0-29[facility]zer HospitalComment on above: Performed By: #### CD:[id number] ####[address] [address]EX WBC Quant7 /HPFHigh0-5BSelect Medical Specialty Hospital - Akron Comment on above:Performed By: #### CD:[id number] ####[address] [address].eGFRon 17-14-8431oFFQ AA52 mL/min/1.73m?Low>=60[facility] HospitalComment on above:Result Comment: Result = 0-14.9 mL/min/1.73 m2 Kidney failure or Dialysis Result = 15-29 mL/min/1.73 m2 Severe decrease in GFR Result = 30-59 mL/min/1.73 m2 Moderate decrease in GFR Result >= 60 mL/min/1.73 m2 Normal or increased GFRPerformed By: #### EGFR #### [address] [address]jUWK Non-AA43 mL/min/1.73m?Low>=60[facility] HospitalComment on above:Result Comment: Result = 0-14.9 [...] medication dosing. Performed By: #### EGFR #### [address] [address]LXZ w/ Diffon 86-21-5443Ydvoascarne distribution width (RBC) [Ratio]15.9 %High11.6-14.8BSelect Medical Specialty Hospital - AkronComment on above: Performed By: #### CBC #### [address] [address]Zlfzisxxgn (Bld) [Volume fraction]37.5 %Cdmbec26.0-46.0 [facility] HospitalComment on above:Performed By: #### CBC #### [address] [address]Qycxawswul (Bld) [Mass/Vol]12.5 g/gWLuxrao24.0-16.0[facility]zer HospitalComment on above:Performed By: #### CBC #### [address] [address]ODI (RBC) [Entitic mass]27.4 yyKjmxmg79.0-35.0[facility]zer HospitalComment on above:Performed By: #### CBC #### [address] [address]TJNV (RBC) [Mass/Vol]33.2 %Xsjrew91.0-37.0[facility] HospitalComment on above:Performed By: #### CBC #### [address] [address]WUG (RBC) [Entitic vol]82.4 iEAbzmdn24.0-100.0[facility] HospitalComment on above:Performed By: #### CBC #### [address] [address]Dhnnmbsf mean volume (Bld) [Entitic vol]9.4 fLNormal6.7-10.6 [facility] HospitalComment on above:Performed By: #### CBC #### [address] [address]Ymburibdi (Bld) [#/Vol]307 x10*3/jnORgdejm280-514Ialwplxcu Valley Health SystemComment on above:Performed By: #### CBC #### [address] [address]FRR (Bld) [#/Vol]4.55 x10*6/mcLNormal3.80-5.20[facility] SystemComment on above:Performed By: #### CBC #### [address] [address]XDT (Bld) [#/Vol]12.9 x10*3/mcLHigh4.5-11.0Holzer HospitalComment on above:Performed By: #### CBC #### [address] [address]OWDyr 87-74-9341Auicqxf [Mass/Vol]5.2 g/dLHigh3.2-4.9BSelect Medical Specialty Hospital - AkronComment on above:Result Comment: [facility] Laboratory updated the methodology used for albumin testing on 04/24/18. Albumin measurement was performed using a bromcresol purple dye-binding assay.Performed By: #### COMP #### [address] [address]Isjmzap/Globulin [Mass ratio]1.5 {ratio}Normal1.1-2.2BSelect Medical Specialty Hospital - AkronComment on above:Performed By: #### COMP #### [address] [address]Cwe Phos47 IU/ZAlmyor14-89UwizjkovwHolzer HospitalComment on above:Performed By: #### COMP #### [address] [address]VXY [Catalytic activity/Vol]19 U/EQfksjv94-76TvjourfowHolzer HospitalComment on above:Performed By: #### COMP #### [address] [address]Eozxh gap [Moles/Vol]22 mmol/LHigh7-17Holzer HospitalComment on above:Performed By: #### COMP #### [address] [address]ZCN [Catalytic activity/Vol]31 U/CQeculv94-08IuywuofsdHolzer HospitalComment on above:Performed By: #### COMP #### [address], [place] [address]Huuj Total1.4 mg/dLHigh0.3-1.2BSelect Medical Specialty Hospital - [facility]ron Comment on above:Performed By: #### COMP #### [address], [place] [address]Egdtmio [Mass/Vol]10.2 mg/dLNormal8.5-10.3BSelect Medical Specialty Hospital - AkronComment on above:Performed By: #### COMP #### [address], [place] [address]Scogvqfm [Moles/Vol]100 mmol/QCzmnrs84-427AwymassvnHolzer HospitalComment on above:Performed By: #### COMP #### [address] [address]CS1 [Moles/Vol]19 mmol/SEjw21-97XyclpzdsaHolzer Hospital Comment on above:Performed By: #### COMP #### [address], [place] [address]Tighezycqt [Mass/Vol]1.47 mg/dLHigh0.44-1.03Holzer HospitalComment on above:Performed By: #### COMP #### [address] [place] [address]Qucezao [Mass/Vol]85 mg/jARzlqup14-00WkdmkrrqgHolzer HospitalComment on above:Performed By: #### COMP #### [address] [place] [address]Ukfxbxmie [Moles/Vol]3.7 mmol/LNormal3.4-4.8BSelect Medical Specialty Hospital - AkronComment on above:Performed By: #### COMP #### [address] [address]Ecjrpwt [Mass/Vol]8.7 g/dLHigh6.5-8.1BSelect Medical Specialty Hospital - AkronComment on above:Performed By: #### COMP #### [address] [address]Vdhqlw [Moles/Vol]137 mmol/DAgkktc153-011BzttbwkpgHolzer HospitalComment on above:Performed By: #### COMP #### [address] [address]Bmfq nitrogen [Mass/Vol]25 mg/dLNormal8-26Holzer HospitalComment on above:Performed By: #### COMP #### [address] [address]Jqsu nitrogen/Creatinine [Mass ratio]17.0 mg/kfIlnycg64.0-20.0 [facility] HospitalComment on above:Performed By: #### COMP #### [address] [address]OXAmc 86-93-7269Eczloikw Kpgezorhrints951 IU/AGapo65-217 [facility] HospitalComment on above:Performed By: #### CP #### [address] [address]Jokf Autoon 93-36-4049Djwf Absolute0.0 x10*3/mcLNormal0.0-0.2 [facility] HospitalComment on above:Performed By: #### .Automated Diff #### [address] [address]Iiytewptr/100 WBC (Bld)0.4 %Normal0.0-1.5BSelect Medical Specialty Hospital - AkronComment on above:Performed By: #### .Automated Diff #### [address] [address]Ats Absolute0.0 x10*3/mcLNormal0.0-0.4BSelect Medical Specialty Hospital - AkronComment on above:Performed By: #### .Automated Diff #### [address] [address]Xjbiflmuovp/100 WBC (Bld)0.1 %Normal0.0-5.4BMercy Health St. Charles Hospital SystemComment on above:Performed By: #### .Automated Diff #### [address] [address]Alecsyszxqv (Bld) [#/Vol]1.4 x10*3/mcLNormal1.0-4.8BMercy Health St. Charles Hospital SystemComment on above:Performed By: #### .Automated Diff #### [address] [address]Wlunkvxvvrz/100 WBC (Bld)10.8 %Low27.2-40.8BSelect Medical Specialty Hospital - AkronComment on above:Performed By: #### .Automated Diff #### [address] [address]Scuy Absolute1.5 x10*3/mcLHigh0.1-1.1BMercy Health St. Charles Hospital SystemComment on above:Performed By: #### .Automated Diff #### [address] [address]Dgfkbdzfm/100 WBC (Bld)11.4 %Normal3.7-11.9BMercy Health St. Charles Hospital SystemComment on above:Performed By: #### .Automated Diff #### [address] [address]Hpgqms Uhqpyuoe86.0 x10*3/mcLHigh1.8-7.7BMercy Health St. Charles Hospital SystemComment on above:Performed By: #### .Automated Diff #### [address] [address]Xxdxkx Auto77.3 %High47.2-70.8BSelect Medical Specialty Hospital - [facility]ron Comment on above:Performed By: #### .Automated Diff #### [address] [address]JN Note-Nursingon 50-41-1478NA Note-NursingLab called about add ons Electronically signed by Barbara Holman Oleksandr 03/16/20 20:49 EDTNoKettering Health Greene MemorialED Note-Physicianon 30-13-8761AF Note-PhysicianChief Complaint I want to detox. I [...] that she has residential set up at [facility] in [place], [place] but she has to detox first. [...] well. She was seen by Alonso, social welfare administrator who has arranged for her to go to [facility] tomorrow as patient is interested in treatment. Verbally contracted to safety and filled out a safety plan. Alonso withsocial work spoke with director of academic, Jelena who will arrange for further follow-up when they arrive tomorrow. Family is agreeable with plan. Patient has good support. They will return if any changes of symptoms or concern. Silvia Castañeda scribing for and in the presence of Dr. Cornell. Scribe Attestation: The information in this document, created by the lpn or medical assistant for me, accurately reflects the services [...] High Lymph Auto 03/16/20 20:39 10.8 Low [place] Auto 03/16/20 20:39 11.4 Eos Auto 03/16/20 20:39 0.1 Basophil Auto 03/16/20 20:39 0.4 Neutro Absolute 03/16/20 20:39 10.0 High Lymph Absolute 03/16/20 20:39 1.4 [place] Absolute 03/16/20 20:39 1.5 High Eos Absolute [...] signed by Lima Cornell MD 03/17/2020 04:16 EDTNoKettering Health Greene MemorialEthanolon 62-32-5034Lwsevjx [Mass/Vol]mg/dLNormal<=9BSelect Medical Specialty Hospital - AkronComment on above:Result Comment: To convert mg/dL to g/dL, divide result by 1,000. Legal limit of intoxication is 80mg/dL (0.08 g/dL).Performed By: #### ALC #### [address] [address]PC w Culture if Indon 68-88-4446Ezmrh (U)AmberNoKettering Health Greene MemorialComment on above:Performed By: #### UCI #### [address] [address]Sjgagfm (U) [Mass/Vol]NegativeNormalNegAccess Hospital DaytonComment on above:Performed By: #### UCI #### [address], [place] [address]Djfzybo Ql (U)20 mg/dLAbnormalNegAccess Hospital DaytonComment on above:Performed By: #### UCI #### [address], [place] [address]UW BloodSmallAbnormalNegAccess Hospital Dayton Comment on above:Performed By: #### UCI #### [address] [address]MS ClarityCloudyNormUniversity Hospitals Geneva Medical CenterComment on above:Performed By: #### UCI #### [address], [place] [address]XK Leukocyte EsteraseTraceAbnormcaNegAccess Hospital DaytonComment on above:Performed By: #### UCI #### [address] [place] [address]MV NitriteNegativeNogood hope hospitalNegAccess Hospital Dayton Comment on above:Performed By: #### UCI #### [address] [place] [address]WP pH5.7Nwhmom0.5 - 7.8BlanOhio State Harding HospitalComment on above:Performed By: #### UCI #### [address], [place] [address]JB Lgqwkhz360 mg/dLAbnormalNegAccess Hospital DaytonComment on above:Performed By: #### UCI #### [address], [place] [address]DK SourceClean CatchNormUniversity Hospitals Geneva Medical CenterComment on above:Performed By: #### UCI #### [address] [address]DU Spec Grav1.993Zxmygo0.003-1.035Holzer HospitalComment on above:Performed By: #### UCI #### [address] [address]OZ Urobilinogen0.2 mg/dLNormal0.2 - 1.0[facility] SystemComment on above:Performed By: #### UCI #### [address] [address]Pbpwlnmvckcs Qn (U)SmallAbnormalNegativeFisher-Titus Medical Center SystemComment on above:Performed By: #### UCI #### [address] [address]EMA Compon 84-24-8823Qfmbnttmfh [Mass/Vol]mg/dLNormalHolzer HospitalComment on above:Performed By: #### CD:[id number] #### [address] [address]Mn Amph ScrnPositiveAbnormalNEG = <1000Holzer HospitalComment on above:Result Comment: This unconfirmed positive screening result is to be used for medical treatment purposes only. Unconfirmed screening results must not be used for non-medical purposes. (e.g. employment testing, legal testing).Performed By: #### CD:[id number] #### [address] [address]Oy Anastasia ScrnNegativeNormalNEG = <200[facility] SystemComment on above:Performed By: #### CD:[id number] #### [address], [place] [address]Mv Benzodia ScrnNegativeNormalNEG = <200[facility] SystemComment on above:Performed By: #### CD:[id number] #### [address], [place] [address]Lt Cannab ScrnNegativeNormalNEG = <50[facility] SystemComment on above:Performed By: #### CD:[id number] #### [address] [place] [address]Dg Cocaine ScrnNegativeNormalNEG = <300Holzer HospitalComment on above:Performed By: #### CD:[id number] #### [address] [address]Hm Methadone ScnNegativeNormalNEG = <300Holzer HospitalComment on above:Performed By: #### CD:[id number] #### [address] [address]Cj Opiate ScrnNegativeNormalNEG = <300Holzer HospitalComment on above:Performed By: #### CD:[id number] #### [address] [address]Kc Oxy ScreenNegativeNormalNEG = <100Holzer HospitalComment on above:Performed By: #### CD:[id number] #### [address] [address]Tr Oxy Scrn Qnt54 ng/mLNormal<=99[facility] System Comment on above:Performed By: #### CD:[id number] #### [address] [address]Ew PCP ScrnNegativeNormalNEG = <25Holzer HospitalComment on above:Performed By: #### CD:[id number] #### [address] [address]ET pH5.3Jnnbgt0.5 - 7.8BSelect Medical Specialty Hospital - AkronComment on above:Performed By: #### CD:[id number] #### [address] [address]VJ Spec Grav1.600Wpnwqt4.003-1.035Holzer HospitalComment on above:Performed By: #### CD:[id number] #### [address] [address]UEH Screenon [id number] Ag/AbNONREACTIVENONREACTIVEUc Health- [place], [place]Comment on above:No laboratory evidence of HIV infection. If acute HIV infection is suspected, consider testing for HIV-1 RNA. HCG, Quantitative, Pregnancyon [id number]<5 IU/LMercy Health- [place], RIComment on above: Non-preg premeno <=5 Postmeno <=8 Male <=3 If HCG results do not concur with clinical observations, additional testing to confirm results is recommended. Elevated results not associated with may be found in patients with other diseases such as tumors of the germ cells (testis, ovaries, etc.), bladder, pancreas, stomach, lungs, and liver. Interpretation and review of laboratory resultsAbnormalMercy Health- [place], [place] Hepatitis C Antibodyon [id number] C AbREACTIVEAbnormalNONREACTIVEMer Health- [place], RIComment on above: The hepatitis C procedure used [...] resultsAbnormalMercy Health- [place], [place] TYPE AND SCREENon 25-43-7743YUQ/RhPositiveMercy Health- [place], KYUrine Drug Screen, Comprehensiveon 90-40-3514Kvsqnhqghke Screen, UrNegativeNEGATIVE [facility]- [place], KYBarbiturate Screen, UrNegativeNEGATIVEMercy Health- [place], [place] Benzodiazepine Screen, UrineNegativeNEGATIVEMercy Health- [place], KYBuprenorphine UrineNegativeNEGATIVEMercy Health- [place], KYCannabinoid Scrn, UrNegativeNEGATIVE [facility]- [place], KYCocaine Metabolite, UrineNegativeNEGATIVEMercy Health- [place], KYMDMA, UrineNOT REPORTEDNEGATIVEMercy Health- [place], KYMethadone Screen, Urine NegativeNEGATIVEMercy Health- [place], KYMethamphetamine, UrineNegativeNEGATIVEMercy Health- [place], KYOpiates, UrineNegativeNEGATIVEMercy Health- [place], KYOxycodone Screen, UrNegativeNEGATIVEMercy Health- [place], KYPhencyclidine, UrineNegative NEGATIVEMercy Health- [place], KYPropoxyphene, UrineNegativeNEGATIVECenterville, KYTest InformationNOT [facility], CORINATricyclic Antidepressants, UrineNegativeNEGATIVECenterville, CORINAComment on above:Drug screen results are to be used for medical purposes only. All positive results are unconfirmed. Testing for employment or legal uses should be sent to a reference laboratory for confirmation. HCG, Quantitative, Pregnancyon 35-92-3686cQF Bfhkq40440Nzez<5 IU/LMercy [facility], RIComment on above: Non-preg premeno <=5 Postmeno <=8 Male <=3 If HCG results do not concur with clinical observations, additional testing to confirm results is recommended. Elevated results not associated with may be found in patients with other diseases such as tumors of the germ cells (testis, ovaries, etc.), bladder, pancreas, stomach, lungs, and liver. Interpretation and review of laboratory resultsAbnoConifer, KYHIV Screenon 94-94-6914PBZ Ag/AbNONREACTIVENONREFairfield Medical Center, [facility] on above:No laboratory evidence of HIV infection. If acute HIV infection is suspected, consider testing for HIV-1 RNA. Hepatitis C Antibodyon 74-54-9284Keljtdayb C AbREACTIVEAbnoPikes Peak Regional Hospital, [facility] on above: The hepatitis C procedure [...] Health Department Interpretation and review of laboratory resultsAbnoSouthwest General Health Center, [place] PROFILE Ion 52-80-7958Iraknstft (Bld) [#/Vol]10*3/[facility], KYBasophils/100 WBC (Bld)1 %0 - 2 %[place], KYDifferential TypeNOT [facility], CORINAEosinophils (Bld) [#/Vol]0.09 10*3/uLCenterville, KYEosinophils/100 WBC (Bld)2 %1 - 4 %[place], KYErythrocyte distribution width (RBC) [Ratio]15.7 %High11.8 - 14.4 %[place], [place] Hematocrit (Bld) [Volume fraction]36.5 %36.3 - 47.1 %[place], [place] Hemoglobin (Bld) [Mass/Vol]11.2 g/dLLow11.9 - 15.1 g/dLVerona, [place] Hepatitis B Surface AgNONREACTIVENONREACTIVECenterville, RIImmature granulocytes (Bld) [#/Vol]0 %0[place], KYImmature granulocytes (Bld) [#/Vol]10*3/uLVer[place], KYInterpretation and review of laboratory resultsAbnormalVerona, KYLymphocytes (Bld) [#/Vol]1.98 10*3/uLCenterville, RILymphocytes/100 WBC (Bld)46 %High24 - 43 %[place], KYMCH (RBC) [Entitic mass]25.6 pg25.2 - 33.5 pgVerona, KYMCHC (RBC) [Mass/Vol]30.7 g/dL28.4 - 34.8 g/dLVerona, KYMCV (RBC) [Entitic vol] 83.3 fL82.6 - 102.9 fLVerona, KYMonocytes (Bld) [#/Vol]0.37 10*3/uL [place], RIMonocytes/100 WBC (Bld)9 %3 - 12 %[place], [place] Platelet mean volume (Bld) [Entitic vol]11.6 fL8.1 - 13.5 fLVer[place], [place] Platelets (Bld) [#/Vol]NOT REPORTEDCenterville, RIPlatelets (Bld) [#/Vol] 196 10*3/uLCent[place], RIRBC (Bld) [#/Vol]4.38 10*6/uL3.95 - 5.11 m/uL [place], KYRBC morphology finding Nom (Bld)NOT REPORTEDUc Health- [place], KYRubella virus IgG Ql (S)286.1IU/mLCenterville, [facility] on above: REFERENCE RANGE: <5.0 NON-REACTIVE (non-immune) 5.0 TO 9.9 EQUIVOCAL >=10.0 REACTIVE (immune) Segmented neutrophils/100 WBC (Bld)42 %36 - 65 %[place], RISe Absolute1.75[place], KYT. pallidum, IgGNONREACTIVENONREACTIVECenterville, RIComcorewell health re[facility] city [facility] on above: T. pallidum antibodies are not detected. There is no serological evidence of infection with T. pallidum (early primary syphilis cannot be excluded). Retest in 2-4 weeks if syphilis is clinically suspect. WBC (Bld) [#/Vol]4.2 10*3/uLCenterville, RIWBC (Bld) [#/Vol]0.0 10*3/uL0.0 per 100 WBCCenterville, RIW MorphologyNOT REPORTEDCent[place], [place] TYPE AND SCREENon 94-94-8786LGJ/RhPositiveUc Health- [place], KYUrine Drug Screen, Comprehensiveon 15-24-0820Momebwloibz Screen, UrNegativeNEGATIVE [facility]- [place], KYBarbiturate Screen, UrNegativeNEGATIVEMercy Health- [place], [place] Benzodiazepine Screen, UrineNegativeNEGATIVEMercy Health- [place], KYBuprenorphine UrineNegativeNEGATIVEMercy Health- [place], KYCannabinoid Scrn, UrNegativeNEGATIVE [facility] [place], KYCocaine Metabolite, UrineNegativeNEGATIVEMercy Health- [place], KYInterpretation and review of laboratory resultsAbnormalMerQuincy Valley Medical Center- [place], [place] MDMA, UrineNOT REPORTEDNEGATIVEMerQuincy Valley Medical Center- [place], KYMethadone Screen, Urine NegativeNEGATIVEMercy Health- [place], KYMethamphetamine, UrineNegativeNEGATIVEMercy Health- [place], KYOpiates, UrineNegativeNEGATIVEMercy Health- [place], KYOxycodone Screen, UrNegativeNEGATIVEMercy Health- [place], KYPhencyclidine, UrineNegative NEGATIVEMercy Health- [place], KYPropoxyphene, UrineNegativeNEGATIVEMercy Health- [place], KYTest InformationNOT REPORTEDMer Health- [place], KYTricyclic Antidepressants, UrinePositiveAbnormalNEGATIVESuburban [facility]- [place], KYComment on above:Drug screen results are to be used for medical purposes only. All positive results are unconfirmed. Testing for employment or legal uses should be sent to a reference laboratory for confirmation. Comprehensive Metabolic Panelon [id number] [Mass/Vol]4.3 g/dL3.5 - 5.2 g/dLMer Health- [place], KYAlbumin/Globulin [Mass ratio]1.4 {ratio}[facility]- [place], KYALP [Catalytic activity/Vol]50 U/L35 - 104 U/LMercy Health- [place], KYALT [Catalytic activity/Vol]9 U/L5 - 33 U/LMercy Health- [place], KYAnion gap [Moles/Vol] 8 mmol/LLow9 - 17 mmol/LM[facility]- [place], KYAST [Catalytic activity/Vol]15 U/L <32Mer [facility]- [place], KYBilirubin Ql (U)0.31 mg/dL0.3 - 1.2 mg/dLSuburban [facility] Hospital & [facility]- [place], KYBun/Cre Vggir23Dnqkx Health- [place], KYCalcium [Mass/Vol]9.4 mg/dL8.6 - 10.4 mg/dLSuburban [facility] Hospital [facility]- [place], KYChloride [Moles/Vol]102 mmol/L98 - 107 mmol/LMercy Health- [place], KYCO2 [Moles/Vol]28 mmol/L20 - 31 mmol/LMercy Health- [place], [place] Creatinine [Mass/Vol]0.92 mg/dLHigh0.5 - 0.9 mg/dLSuburban [facility] Hospital [facility]- [place], KYGFR >60>60 mL/minMercy Health- [place], KYGFR Non->60>60 mL/minMercy Health- [place], KYGlucose [Mass/Vol]91 mg/dL70 - 99 mg/dLSuburban Community Hospital & [facility]- [place], KYInterpretation and review of laboratory resultsAbnormalMer Health- [place], KYPotassium [Moles/Vol]4.3 mmol/L3.7 - 5.3 mmol/LMercy Health- [place], KYProtein [Mass/Vol]7.4 g/dL6.4 - 8.3 g/dLVer[place], KYSodium [Moles/Vol]138 mmol/L 135 - 144 mmol/LMChickasaw, KYUrea nitrogen [Mass/Vol]18 mg/dL6 - 20 mg/dL [place], KYHepatitis Panel, Acuteon [id number] IgM IA Qn (S) NONREACTIVENONREACTIVEVerona, KYHep B Core Ab, IgMNONREACTIVE NONREACTIVECenterville, [facility]ly [facility] Hospitalpatitis B Surface AgNONREACTIVENONREACTIVECenterville, [facility]htis C AbREACTIVEAbnormalNONREACTIVEVerona, [place] Comment on above: The hepatitis C [...] Health Department Interpretation and review of laboratory resultsAbnormBradyville, [place] Metabolic Panelon 83-97-7061RNW/1.73 sq M predicted among non-blacks MDRD (S/P/Bld) [Vol rate/Area][place], KYComment on above:Average GFR for 20-29 years old: 116 mL/min/1.73sq m Chronic Kidney Disease: <60 mL/min/1.73sq m Kidney failure: <15 mL/min/1.73sq m eGFR calculated using average adult body mass. Additional eGFR calculator available at: http://www.[employer].com/multiple_crcl_2012.htm Stage 1: Some kidney damage normal GFR Stage 2: Mild kidney damage GFR 60-89 Stage 3: Moderate kidney damage GFR 30-59 Stage 4: Severe kidney damage GFR 15-29 Stage 5: Severe kidney damage GFR <15 ESRD - chronic treatment by dialysis or transplant Drug Scr, Abuse, Uron 32-20-6190Oibfvritfwq(s),UrPositiveAbnormalNEGAkron Children'S HospitalComment on above:Result Comment: (Positive cutoff 1000 ng/mL) Performed By: #### ABBEY ####[address] [address] Barbiturate(s),UrNegativeNormalNEGMercy [facility] Comment on above:Result Comment: (Positive cutoff 200 ng/mL)Performed By: #### ABBEY ####[address] [address] Base excessNegativeNormalNEGMercy [facility] Medical CenterComment on above:Result Comment: (Positive cutoff 300 ng/mL)Performed By: #### ABBEY ####[address] [address] Benzodiazepine(s)Negative NormalNEGAkron Children'S HospitalComment on above:Result Comment: (Positive cutoff 200 ng/mL)Performed By: #### ABBEY ####[address] [address] Cannabinoid(s),UrNegativeNormalNEGMercy [facility] Medical CenterComment on above:Result Comment: (Positive cutoff 50 ng/mL) Performed By: #### ABBEY ####[address] [phone] InfoAssay provides medical screening only. The absence of expected drug(s) and/orNormalMercy [facility] Medical CenterComment on above:Result Comment: metabolite(s) may indicate diluted or adulterated urine, limitations of testing or timing of collection.Testing for legal purposes should be confirmed by another method. To request confirmation of test result, please call the lab within 7 days of sample submission.Performed at [address] [address] ([phone] By: #### ABBEY ####[address] [address] Opiate(s), UrNegativeNormalNEGMercy [facility] Comment on above:Result Comment: (Positive cutoff 300 ng/mL)Performed By: #### ABBEY ####[address] [address] Oxycodone, UrineNegativeNormalNEGMercy [facility] Medical CenterComment on above: Result Comment: (Positive cutoff 100 ng/mL)Performed By: #### ABBEY ####[address] [address] Phencyclidine, Ur NegativeNormalNEGMercy [facility] Medical CenterComment on above:Result Comment: (Positive cutoff 25 ng/mL)Performed By: #### ABBEY ####[address] [address] Urine, methadone presence NegativeNormalNEGMercy [facility] Medical CenterComment on above:Result Comment: (Positive cutoff 300 ng/mL)Performed By: #### ABBEY ####[address] [place] [address] Buprenorphrine, UrNOT REPORTEDNormalNEGMercy [facility] Medical CenterComment on above:Performed By: #### ABBEY ####[address] [place] [address] MDMA, UrineNOT REPORTEDNormalNEGMercy [facility] Medical CenterComment on above: Performed By: #### ABBEY ####[address] [place] [address] Methamphetamine, UrNOT REPORTEDNormalNEGMercy [facility] Medical CenterComment on above:Performed By: #### ABBEY ####[address] [place] [address] Propoxyphene,UrineNOT REPORTEDNormalNEGMercy [facility] Medical CenterComment on above:Performed By: #### ABBEY ####[address] [address] Urine, tricyclic antidepressantsNOT REPORTEDNormalNEGAkron Children'S Hospital Comment on above:Performed By: #### ABBEY ####[address] [phone] Profileon 32-52-8947Nkvdyjbbtyd 137 mg/dLNormal<200Mercy [facility] Medical CenterComment on above:Result Comment: Cholesterol Guidelines: <200 Desirable 200-240 Borderline >240 Undesirable Performed By: #### LIPR ####[address] [address] Cholesterol to HDL Ratio4.3 {ratio}Normal<5[facility] HospitalComment on above:Performed By: #### LIPR ####[address] [address] HDL Ivspxseipnt83 mg/dLLow >40[facility] HospitalComment on above:Result Comment: HDL Guidelines: <40 Undesirable 40-59 Borderline >59 DesirablePerformed By: #### LIPR ####[address] [address] LDL Xrlqyjrkqht59 mg/dLNormal0-130[facility] HospitalComment on above:Result Comment: LDL Guidelines: <100 Desirable 100-129 Near to/above Desirable 130-159 Borderline >159 UndesirableDirect (measured) LDL and calculated LDL are not interchangeable tests.Performed By: #### LIPR ####[address] [phone] mg/dLNormal<150[facility] HospitalComment on above:Result Comment: Triglyceride Guidelines: <150 Desirable 150-199 Borderline 200-499 High >499 Very high Based on AHA Guidelines for fasting triglyceride, June 2012.Performed at [facility] [address] [place] [address] ([phone] By: #### LIPR ####[facility] [facility] [place] [address] Cholesterol in VLDL mass concNOT REPORTEDNormal1-30[facility] CenterComment on above:Performed By: #### LIPR ####[facility] [facility] [place] [address] Vital Signs Date TimeVital SignValuePerforming EwdtehaviNgtvenuw14-24-7397 14:28-0400Body gonyze93.63 kgCorey Markus DO Work Phone: [phone] CenterFkqwokiuxm70-98-9249 14:28-0400Diastolic blood ovuysufh88 mm[Hg]Yousif Markus DO Work Phone: [phone] CenterGeddwcvrpp01-26-2977 14:28-0400Systolic blood zyrfzqby394 mm[Hg]Yousif Markus DO Work Phone: [phone] CenterTvhzscyiih49-32-4091 13:48-0400Body .91 kgJody UREÑA Work Phone: [phone] CenterWczocdpoyv60-96-0060 13:48-0400Diastolic blood mm[Hg]Jody UREÑA Work Phone: [phone] CenterXuosetrrka49-22-1066 13:48-0400Systolic blood kozcapid510 mm[Hg]Jody UREÑA Work Phone: [phone] CenterBjfqkvfuqp74-74-7342 11:30-0400Body mevuke93.54 kgCorey Markus DO Work Phone: [phone] CenterUmzjgomomx40-29-7571 11:30-0400Diastolic blood nafowouo95 mm[Hg]Yousif Markus DO Work Phone: [phone] CenterCrnrflylgr02-71-9841 11:30-0400Systolic blood kjgxiomw292 mm[Hg]Yousif Markus DO Work Phone: [phone] CenterWwrhhxpvjf41-23-4282 10:14-0400Body ytpbpb12.91 kgJonathongonzalez Bong [employer] TECHNICIAN Work Phone: [phone]-[facility] CenterDanrjyzcgl87-88-5132 10:14-0400Diastolic blood laeyztjy29 mm[Hg]Mundo Bong [employer] TECHNICIAN Work Phone: [phone]-[facility] CenterHvvfpxphbt96-38-3597 10:14-0400Systolic blood vuuhipbs977 mm[Hg]Mundo Bong [employer] TECHNICIAN Work Phone: [phone] [place], [place] [address]Wzfzuidxkz02-64-6724 11:44-0400Body zzwwbu54.94 kgCorey Markus DO Work Phone: [phone] [place], [place] [address]Xzwojopncs02-96-6766 10:03-0400Body dfnfho52.12 kgJody UREÑA Work Phone: [phone] [place], [place] [address]Ytimcnefhn36-95-3263 10:03-0400Diastolic blood qpajwpgw65 mm[Hg]Jody UREÑA Work Phone: [phone] [place], [place] [address]Tyldqabdsj23-83-8965 10:03-0400Systolic blood fcpzqxba469 mm[Hg]Jody UREÑA Work Phone: [phone] [place], [place] [address]Mjzfwuszwp19-13-8437 11:13-0400Body dwxwag03.56 kgCorey Markus DO Work Phone: [phone] [place], [place] [address]Qappuhwnaq06-97-7710 11:13-0400Diastolic blood uaiygzzb30 mm[Hg]Yousif Markus DO Work Phone: [phone] [place], [place] [address]Wqtnbffysm47-79-4140 11:13-0400Systolic blood hccvoahs541 mm[Hg]Yousif Markus DO Work Phone: [phone] [place], [place] [address]Lzsqwvtnox79-67-0231 14:18-0400Body imqtyx64.67 kgCorey Markus DO Work Phone: [phone] [place], [place] [address]Ddlezdbgzf84-98-0346 14:18-0400Diastolic blood bexuosod12 mm[Hg]Yousif Markus DO Work Phone: [phone]-[facility] CenterYvmjxynvvs54-78-0285 14:18-0400Systolic blood uzspmicx570 mm[Hg]Yousif Markus DO Work Phone: [facility] CenterAlfsngwbga68-01-4851 15:12-0400Body .36 [facility]04-17-2025 15:12-0400Diastolic blood unuumzoc98 mm[Hg][facility]04-17-2025 15:12-0400Systolic blood xciiavun499 mm[Hg][facility]02-04-2025 07:30-0500Body wmzsmhegrfk99.7 [degF] PHYSICIAN [facility]02-04-2025 07:30-0500 Diastolic blood bwhyzzvy23 mm[Hg]PHYSICIAN [facility]02-04-2025 07:30-0500Heart rate85 /minPHYSICIAN [facility]02-04-2025 07:30-0500Respiratory rate16 /minPHYSICIAN [facility]02-04-2025 07:30-8203ShL5% (BldA) [Mass fraction]98 %PHYSICIAN [facility]02-04-2025 07:30-0500Systolic blood mm[Hg]PHYSICIAN [facility]02-03-2025 14:43-0500Body biuojf497.64 cmPHYSICIAN [facility]02-03-2025 09:00-0500Body nunrvc13.2 kg PHYSICIAN [facility]01-31-2025 17:00-0500 Diastolic blood wilfbpqo13 mm[Hg]Rochelle Alvarado MD Work Phone: [phone] [place], [place] [address]0101-31-2025 17:00-0500 Heart rate81 /Kain Alvarado MD Work Phone: [phone]01-31-2025 17:00-0500 Respiratory rate16 /Kain Alvarado MD Work Phone: [phone]01-31-2025 17:00-0500 SaO2% (BldA) [Mass fraction]100 %Rochelle Alvarado MD Work Phone: [phone]01-31-2025 17:00-0500 Systolic blood vhctzewr582 mm[Hg]Rochelle Alvarado MD Work Phone: [facility]01-31-2025 12:00-0500 Body sbxrjpofdzz31.7 [degF]Rochelle Alvarado MD Work Phone: [facility]01-31-2025 06:00-0500 Body byakrf62.2 kgDolawanda Alvarado MD Work Phone: [facility]01-30-2025 16:30-0500 Body suhupo818.18 cmDolawanda Alvarado MD Work Phone: [facility]01-29-2025 20:45-0500 Diastolic blood mm[Hg][facility] 10-15-2024 20:45-0500Heart jgnq913 /min[facility]01-29-2025 20:45-0500Mean blood lrykpfuh918 mm[Hg][facility]01-29-2025 20:45-0500Respiratory rate14 /min[facility]01-29-2025 20:45-0500Systolic blood sumlqzzt490 mm[Hg][facility]01-29-2025 20:00-0500Heart rate 89 /minSelect [facility]01-29-2025 19:57-0500Diastolic blood pcgkdubs25 mm[Hg][facility]01-29-2025 19:57-0500Heart rate95 /minSelect [facility]01-29-2025 19:57-0500Mean blood gpkdihzk80 mm[Hg][facility]01-29-2025 19:57-0500Respiratory rate14 /minSelect [facility]01-29-2025 19:57-9420KzF6% (BldA) [Mass fraction]99 %[facility]01-29-2025 19:57-0500Systolic blood pressure 115 mm[Hg][facility]01-29-2025 19:00-0500 Diastolic blood mm[Hg][facility] 10-15-2024 19:00-0500Mean blood dvxmwgaq00 mm[Hg][facility]01-29-2025 19:00-0500Systolic blood myhmjnax300 mm[Hg][facility]01-29-2025 18:30-0500Respiratory rate16 /min [facility]01-29-2025 18:30-5313NnL7% (BldA) [Mass fraction]99 %[facility]01-29-2025 17:02-4534XjP0% (BldA) [Mass fraction]99 %[facility]01-29-2025 13:29-0500Body rkivgnmuhfv90.7 [degF][facility]01-29-2025 13:29-0500Heart rate99 /minSelect [facility]01-29-2025 13:14-0500Body agyjqmpggkc36.7 [degF][facility]01-29-2025 13:14-0500Heart gkhv797 /min [facility] Encounters Encounter DateEncounter TypeCare ProviderFacilityStart: 07-08-2025 End: 42-39-9258Qtckbeshw Result EncounterValerie Keya Rapp CNM Work Phone: [facility] External Department UnsolicitedStart: 07-08-2025 End: 99-59-9102Gdsscctdi Result EncounterValerie Keya Rapp CNM Work Phone: [facility] External Department UnsolicitedStart: 07-07-2025 End: 45-68-2463Sggbxd outpatient visit 15 minutesCorey Markus DO Work Phone: [facility] Alvaro OBGYNComment on above:Third trimester ([facility]); 37 weeks gestation of ([facility])Start: 07-07-2025 End: 12-22-5717ldacafisgxKQFAN FAZIONot AvailableStart: 07-07-2025 End: 25-91-7102Rsfxme flowsheetCorey Markus DO Work Phone: [facility] Alvaro OBGYNStart: 07-07-2025 End: 34-46-2748Garurq flowsheetCorey Markus DO Work Phone: [facility] Comfort OBGYNStart: 06-30-2025 End: 88-71-8111Rixoet outpatient visit 15 minutesJody UREÑA Work Phone: [facility] Comfort OBGYNComment on above:Third trimester ([facility]); 36 weeks gestation of ([facility]); H/O pre-eclampsia in prior , currently ([facility]); H/O miscarriage, currently ([facility]); History of gestational diabetes; Anemia, unspecified typeStart: 06-30-2025 End: 31-85-0199cgvdticetwUYW Nicolas AvailableStart: 06-18-2025 End: 65-77-8687Bvkywoitz Result EncounterMundo Woody NP Work Phone: [facility] External Department UnsolicitedStart: 06-18-2025 End: 26-88-6320Occxshdpv Result EncounterMundo Woody NP Work Phone: [facility] External Department UnsolicitedStart: 06-08-2025 End: 08-27-8929Hoxtcj flowsheetCorey Markus DO Work Phone: [facility] Alvaro OBGYNStart: 06-08-2025 End: 43-09-9991Vpqgve flowsheetCorey Markus DO Work Phone: [facility] Comfort OBGYNStart: 06-08-2025 End: 18-38-6609Ndmihz outpatient visit 15 minutesCorey Markus DO Work Phone: [facility] Alvaro OBGYNComment on above:Third trimester ([facility]); 33 weeks gestation of ([facility]); Gestational diabetes mellitus (GDM) in third trimester, gestational diabetes method of control unspecified ([facility]); H/O pre-eclampsia in prior , currently ([facility]); H/O miscarriage, currently ([facility])Start: 06-08-2025 End: 89-41-1921neidwqygzuXAFXU FAZIONot AvailableStart: 05-21-2025 End: 34-70-2183Vpgevefap Result EncounterMundo Woody NP Work Phone: [facility] External Department UnsolicitedStart: 05-21-2025 End: 86-06-6293Kuuqvcnsu Result EncounterMundo Woody NP Work Phone: [facility] External Department UnsolicitedStart: 05-20-2025 End: 43-96-5727Ykvbes outpatient visit 15 minutesMundo Woody NP Work Phone: [facility] Comfort OBGYNComment on above:Diarrhea, unspecified type (Primary Dx); Third trimester ([facility]); 31 weeks gestation of ([facility]); Nausea and vomiting in ([facility])Start: 05-20-2025 End: 04-46-7874xvughpokctENIAUVCQ EBERLYNot AvailableStart: 05-08-2025 End: 71-49-6764Jeipaccmc Result EncounterMundo Woody NP Work Phone: [facility] External Department UnsolicitedStart: 05-08-2025 End: 14-54-8101Wfgijjveo Result EncounterMundo Woody NP Work Phone: [facility] External Department UnsolicitedStart: 05-06-2025 End: 35-97-8869Iikkyq flowsheetCorey Markus DO Work Phone: [facility] Alvaro OBGYNStart: 05-06-2025 End: 71-55-4621Fqaqyt flowsheetCorey Markus DO Work Phone: [facility] Alvaro OBGYNStart: 05-06-2025 End: 12-21-6776Xeuobw outpatient visit 15 minutesCorey Markus DO Work Phone: [facility] Comfort OBGYNComment on above:Third trimester ([facility]); 29 weeks gestation of ([facility]); size inconsistent with dates ([facility]); Low iron; Dizziness; NauseaStart: 05-06-2025 End: 15-64-1527eksucgazkiSFVCC FAZIONot AvailableStart: 04-09-2025 End: 64-18-4828Znxqjo flowsAlireza UREÑA Work Phone: [facility] BCP OBStart: 04-09-2025 End: 03-61-7024Cmpere alexyheetJody UREÑA Work Phone: [facility] BCP OBStart: 04-09-2025 End: 70-25-9007Mljvny outpatient visit 15 minutesAmy Lamin UREÑA Work Phone: NOMS BCP OBComment on above:Second trimester ([facility]); 25 weeks gestation of ([facility])Start: 04-09-2025 End: 30-69-9089mqpazkzvxgZPB RAMEYNot AvailableStart: 04-01-2025 End: 59-27-6255vzuypotyrsGPUPG FAZIONot AvailableStart: 03-11-2025 End: 30-39-4515Qpdmvy flowsheetCorey Markus DO Work Phone: [facility] BCP OBStart: 03-11-2025 End: 73-93-5520Hfykgu flowsheetCorey Markus DO Work Phone: [facility] BCP OBStart: 03-11-2025 End: 30-02-5760Kwrwshqng Result EncounterCorey Markus DO Work Phone: NOMS External Department UnsolicitedStart: 03-11-2025 End: 12-25-8115Ujgyperd Result EncounterCorey Markus DO Work Phone: noms External Department UnsolicitedStart: 03-11-2025 End: 17-54-2748fkuixaewldWHCLJ FAZIONot AvailableStart: 03-11-2025 End: 68-32-4031Nbkekez encounter procedureCorey Markus DO Work Phone: noms HealthcareStart: 03-11-2025 End: 47-11-4569Movtvodh preventive med est patient 18-39 yrsCorey Markus DO Work Phone: noms BCP OBComment on above:Screening, , for anatomic survey ([facility]); Well woman exam with routine gynecological exam; Exposure to STD; Vaginal discharge; 21 weeks gestation of ([facility]); Second trimester ([facility]); Nausea and vomiting, unspecified vomiting typeStart: 01-19-2025 End: 94-39-1529Nqebjj outpatient visit 15 minutesCorey Markus DO Work Phone: noms BCP OBComment on above:History of gestational diabetes (Primary Dx); Second trimester ; 13 weeks gestation of ; Urinary tract infection without hematuria, site unspecified; Diabetes mellitus screeningStart: 01-19-2025 End: 32-84-4612qpcsvrbhukECKDE FAZIONot AvailableStart: 01-07-2025 End: 41-89-8181Wnxltlkbr Result EncounterCorey Markus DO Work Phone: noms External Department UnsolicitedStart: 01-07-2025 End: 82-56-3686Svtgwwhmn Result EncounterCorey Markus DO Work Phone: noms External Department UnsolicitedStart: 01-05-2025 End: 30-53-6359Bzhxexmck department patient visitALEXA JAE [facility] HospitalStart: 01-01-2025 End: 84-27-7606Umgvwm outpatient visit 5 minutesNoms Bcp Ob Markus NOMS BCP OBComment on above:GA: 52d6dDakjo: 01-01-2025 End: 53-29-4772dhsknwvbqqKMQ RAMEYNot AvailableStart: 68-31-2866Mgm-patient / Non-visitPHYSICIAN NO [facility] Physician [facility] Work Phone: Start: 10-17-2024 End: 86-02-5734Nsxgabbffp and management of inpatientPHYSICIAN NO [facility] Work Phone: Start: 75-66-9154Fad-patient / Non-visitRochelle Alvarado MD Work Phone: [facility] Physician [facility] Work Phone: Start: 10-15-2024 End: 68-13-4297Jsbyulekac and management of inpatientRochelle Alvarado MD Work Phone: [facility] Work Phone: Start: 10-15-2024 End: 71-96-9398Usydubhdt department patient visitAstrit H [facility] Start: 63-34-4262Qgjttpnzfq RecurringRochelle Alvarado MD Work Phone: [facility]- CredibleStart: 62-62-3900osrlkrhhynLjpfotn M HoyFacility:[facility] Start: 11-26-2023 End: 76-61-1576qfoslixnpaGOYOWM RICKERMercy Eastpoint HospitalStart: 11-05-2023 End: 85-66-2301yebgwvqckyLzqc L SchwabFacility:FT FM BellevueStart: 10-30-2023 Clinisync Result EncounterCorey Markus DO Work Phone: NOOK External Department UnsolicitedStart: 10-30-2023 Clinisync Result EncounterCorey Markus DO Work Phone: NOVD External Department UnsolicitedStart: 10-29-2023 End: 96-45-5930krxriukyvbTS Rochelle Alvarado Work Phone: [facility] Work Phone: Start: 10-29-2023 End: 08-56-4189Vzazojhi ReferredMD Rochelle Alvarado Work Phone: [facility]-LAB Path Spec [facility] HospStart: 12-21-2022 End: 39-18-7543ffezvuvskkQGLWWB BASHIR .Facility:K0Hizrc: 11-29-2022 End: 57-21-8142qfhvcolucsIX RODO Dickerson NADERERFacility:E7Rpwds: 77-28-5385umfcenvuwm HEALTH SERVICES FAMILYFacility:S5Rpzwd: 10-11-2022 End: 85-92-3461uueideuyjsTK CHRISTINE JOSEPHERFacility:F0Xycck: 09-12-2022 End: 63-20-6614mqzgukewahNA YOUSIF MARKUS .Facility:M8Qfbvu: 29-45-0770Pypiuzual for preprocedural laboratory examinationDR YOUSIF MARKUS .[facility] Start: 08-18-2022 End: 15-60-4990emoazgnurdIX YOUSIF MARKUS .Facility:V0Zczpr: 08-16-2022 End: 33-55-8364udbadpxrbgSA YOUSIF MARKUS .Facility:T3Ywany: 08-16-2022 End: 66-18-5652Gmgpdfvad for preprocedural laboratory examinationDR YOUSIF MARKUS .Facility:X4Iwtrd: 08-14-2022 End: 18-63-3102agywskeevaZVOGIJ SERVICES FAMILYFacility:T6Lnxtr: 07-27-2022 End: 78-45-5419mowrgeawfvVF YOUSIF MARKUS .Facility:B8Ussow: 07-09-2022 End: 89-71-9627wncvgkcmjaRM ELISEO HARDINGFacility:I5Ojyeu: 12-12-2021 Telephone Niels Suazo MD Work Phone: Hematology/OncologyComment on above:Lab OrdersStart: 74-36-7450Bfuuq abstractingKing Suazo MD Work Phone: Hematology/OncologyStart: 04-26-2020 End: 37-72-5045Cyaavevrxg hospital visit by physicianRochelle Espino Laboratory Start: 03-16-2020 End: 03-15-5778Vtlvbugrs department patient visitLima Cornell Facility:[facility]tart: 11-20-2019 End: 46-46-7838Xtxtxqyyzp hospital visit by Jaquelin Espino [facility] Comment on above:History of miscarriage, currently ; Amenorrhea; Positive urine test; Encounter for supervision of normal in first trimester, unspecified ; Spotting in early pregnancyStart: 06-19-2019 End: 62-14-1701Qrbpgeberz hospital visit by physicianRochelle Espino Laboratory Comment on above:Amenorrhea; Positive urine test; Encounter for supervision of normal in first trimester, unspecified ; Spotting in early pregnancyStart: 05-09-2019 End: 99-82-5983Rcialcmjcf hospital visit by physicianRochelle Espino Laboratory Start: 11-05-2017 End: 72-18-0597Bmazphivgt and management of inpatientSANDEEBucyrus Community Hospital Procedures DateProcedureProcedure DetailPerforming ClinicianStart: 48-09-3273CTK UA (CLEAN/CATCH) HOUSE ADMIN/MICRO IF IND.Martha CAVAZOSM Work Phone: Start: 33-04-6718Bxalm dip stick/tablet rgnt non-auto w/o micrscpCorey Mrakus DO Work Phone: Start: 88-59-3252Ndswt dip stick/tablet rgnt non-auto w/o micrscpAmy Lamin PA Work Phone: Start: 94-49-4347XQB CBC WITH AUTO Stephen Woody NP Work Phone: Start: 21-38-1463Ivzej dip stick/tablet rgnt non-auto w/o micrscpCorey Markus DO Work Phone: Start: 93-01-4918BLO + PARASITE EXAMMundo Woody NP Work Phone: Start: 43-17-7089Kmlma dip stick/tablet rgnt non-auto w/o micrscpKrgonzalez Woody [employer] TECHNICIAN Work Phone: Start: 47-78-7085NPQWVHW 1 HOURKrgonzalez Bong [employer] TECHNICIAN Work Phone: Start: 84-75-3260Topox dip stick/tablet rgnt non-auto w/o micrscpCorey Markus DO Work Phone: Start: 99-62-4282Fdgio dip stick/tablet rgnt non-auto w/o micrscpAmy Lamin UREÑA Work Phone: Start: 89-23-3317ERACWGLSS VAGINITIS (HTRX)Yousif Markus DO Work Phone: Start: 71-89-0172Lcnfb dip stick/tablet rgnt non-auto w/o micrscpCorey Markus DO Work Phone: Start: 49-59-6863UJH,APTIMA HPV,AGE GDLNCorey Markus DO Work Phone: Start: 69-27-3467Opqskupnews observation [Identifier] in Cervix by Cyto stainCorey Markus DO Work Phone: Start: 28-46-7057Eipyu dip stick/tablet rgnt non-auto w/o micrscpCorey Markus DO Work Phone: Start: 31-65-8042GDJ TESTCorey Markus DO Work Phone: Start: 55-40-8034Anlnc dip stick/tablet rgnt non-auto w/o micrscpCorey Markus DO Work Phone: Start: 24-57-9722LXK of Nory Alvarado MD Work Phone: Start: 16-81-3372Zhzhqiuydjt Panel (PCR)Rochelle Alvarado MD Work Phone: Start: 06-55-2089LWPF CBC WITH PLATELET NO DIFFERENTIALCorey Markus DO Work Phone: Start: 79-53-2079Hjeea hepatitis panelErnest Pepper Work Phone: Start: 19-67-9836Kncyxnhj hiv-1&hiv-2 single result Anthony Pabon Work Phone: Start: 74-01-6314Wnlsj count complete automatedErnest Pepper Work Phone: Start: 68-64-4433Agkisobozbpsn metabolic panelErnest Pepper Work Phone: Start: 34-73-9061Cqjxxrwybhwk chorionic qualitative Anthony Pabon Work Phone: Start: 27-71-9399Fzsinciglx microscopic onlyErnest Pepper Work Phone: Start: 45-23-6271Kstxu dip stick/tablet rgnt auto w/o microscopyErnest Pepper Work Phone: Start: 50-18-0152Txznnmat screenDouglas HoyStart: 96-70-8488Blkpjnlq hiv-1&hiv-2 single resultKathleen E Pool Work Phone: Start: 93-36-8585Uzvjeikpt c antibodyKathleen E Pool Work Phone: Start: 32-60-0494Izucnpctd panelKathleen E Pool Work Phone: Start: 74-49-7629Umqvo typing serologic aboKathleen E Pool Work Phone: Start: 86-66-5492Iynxmyhlqpje chorionic quantitative Georgette E Pool Work Phone: Start: 27-09-1146Bobs screen, qualitate/multiKathleen E Pool Work Phone: Start: 78-65-6782Jkgaubzi screenDouglas HoyStart: 85-93-4884Fxtlzazdt panelKathleen E Pool Work Phone: Start: 04-28-4218Dbwfnwddpmyg chorionic quantitative Georgette E Pool Work Phone: Start: 84-68-0173Ivxyirvi hiv-1&hiv-2 single result Georgette E Pool Work Phone: Start: 51-83-7365Chtpa typing serologic aboKathleen E Pool Work Phone: Start: 03-26-6043Pjaa screen, qualitate/multiKathleen E Pool Work Phone: Start: 99-64-2961Rsrqbzhmk c antibodyKathleen E Pool Work Phone: Start: 42-20-7007Srjbl hepatitis panelDawn R Destiny Work Phone: Start: 42-68-3775Aqdilvhkafoio metabolic panelDawn R Destiny Work Phone: Start: 57-13-7872KQBEIHHIH PATIENTSANDEEP GUPTAStart: 69-26-7744GJQVS DRUG SCREENSANDEEP PTAStart: 52-14-1374CBPHRVB COMMUNICATION ANGELO GUPTAStart: 89-75-3644Aliwz panelSANDEEP GUPTAStart: 73-00-0897QTZD GENERALSANDEEP GUPTAStart: 80-49-5557[facility] CODESANDEEP GUPTAStart: 07-69-9356XA CONSULT TO HISTORY AND PHYSICALSANDEEHerber BARRIOSPTAStart: 08-02-0248SEFVJFPJFDFGQ NURSING CARE ORDER (SPECIFY)ANGELO SPICERStart: 57-36-7720OSS UNIT PRIVILEGES ANGELO BARRIOSPTAStart: 04-08-6743SPHDKEQ STATUS (DIRECT)ANGELO SPICER Plan of Treatment DateCare ActivityDetailAuthorStart: 33-20-3555Zspewmjiy for malignant neoplasm of cervixNOMS HealthcareStart: 07-07-2025 End: 78-40-1784Jxzguuy encounter procedureNOMS Comfort OBGYNComment on above: ArrivedStart: 06-30-2025 End: 49-84-5635DWLNFYA, GROUP B STREP WITH SUSCEPTIBLITYCULTURE, GROUP B STREP WITH SUSCEPTIBLITY Lab Routine Third trimester ([facility]) Expected: 06/30/2025, Expires: 06/30/2026[facility] Work Phone: comment on above:Expected: 06/30/2025, Expires: 06/30/2026Start: 06-23-2025 End: 78-39-6992Wpewuwf encounter qitzfakky28/07/2025 3:00 PM EDT Routine [facility] [address] [place], [id number] Mundo Woody, [employer] TECHNICIAN [address] [place] [phone] [facility] Comfort OBGYNStart: 06-23-2025 End: 13-46-6031Uztyomlmxnaw / ancillary services iqpspwzdzs29/07/2025 2:30 PM EDT Ancillary Procedure [facility] [address] [facility] [address] [place] [address] [facility]OMS Alvaro OBGYNStart: 06-08-2025 End: 36-69-6110Nenoaft encounter rtssvnbmi83/22/2025 11:10 AM EDT Routine [facility] [address] [facility] [facility] [address] [place] [phone] Yousif Aparicio, DO [address] [place], [place] [phone] ArrivedNOMS Alvaro OBGYNComment on above:ArrivedStart: 06-03-2025 End: 69-13-4402Jepevnh encounter wiccjoogu39/17/2025 11:30 AM EDT Routine [facility] [address] [facility] [address] Yousif Aparicio, DO [address] [place], [place] [id number] [facility] Comfort OBGYNStart: 05-20-2025 End: 43-51-0308Eyf and parasite screenOva and parasite screen Microbiology Routine Diarrhea, unspecified type Expected: 05/20/2025 (Approximate), Expires: 05/20/2026NOMS HealthcareComment on above:Expected: 05/20/2025 (Approximate), Expires: 05/20/2026Start: 05-20-2025 End: 39-34-0127Zxacv cultureStool culture Microbiology Routine Diarrhea, unspecified type Expected: 05/20/2025 (Approximate), Expires: 05/20/2026[facility] Work Phone: comment on above:Expected: 05/20/2025 (Approximate), Expires: 05/20/2026Start: 05-20-2025 End: 65-58-0901Kkrffxy encounter ckxhtsuez60/03/2025 9:50 AM EDT Routine [facility] [address] [facility] [facility] [place], [id number] Mundo Woody, TELMA [address] [place] [phone] [facility] Comfort OBGYNStart: 05-20-2025 End: 04-85-1619Bmrlvngeivwy / ancillary services bmjouqdrmn32/03/2025 9:30 AM EDT Ancillary Procedure [facility] [address] [facility] [phone] [facility] Comfort OBGYNStart: 16-73-5571Cfedqlvgu vaccinationInfluenza Vaccine (#1)NOMS HealthcareStart: 05-06-2025 End: 81-76-0747Ublkohimcix [Mass/volume] in Serum or PlasmaTransferrin Lab Routine Low iron Dizziness Expected: 05/06/2025 (Approximate), Expires: 05/06/2026[facility] Work Phone: comment on above:Expected: 05/06/2025 (Approximate), Expires: 05/06/2026Start: 05-06-2025 End: 63-13-7784IP for pregnancyUS OB follow up transabdominal approach Imaging Routine size inconsistent with dates ([facility]) Expected: 05/06/2025, Expires: 09/05/2025NOMS HealthcareComment on above:Expected: 05/06/2025, Expires: 09/05/2025Start: 05-06-2025 End: 79-56-8199Zzsykow encounter xhkyiumot04/20/2025 11:30 AM EDT Office Visit [facility]Lor[facility] [place] [facility] [address] [facility] [phone] Yousif Aparicio DO [address] [place], [place] [phone] ArrivedCHARBEL John OBGYNComment on above:ArrivedStart: 04-09-2025 End: 85-60-6400Oziosfr encounter ketwyobdv42/24/2025 9:50 AM EDT Routine [facility] [address] [facility] [place] [phone] Jody Kimble PA [address] [place], [place] [phone] ArrivedNO BCP OBComment on above: ArrivedStart: 04-08-2025 End: 69-25-1960Bgllosr encounter gduliqnog48/23/2025 11:20 AM EDT Routine [facility] [address] [facility] [place] [address] Jody Kimble, PA [address] [place], [place] [phone] NOMS BCP OBStart: 03-25-2025 End: 61-92-5430Jmtvjjuyobyx / ancillary services wwwhkfbaea14/09/2025 11:00 AM EDT Ancillary Procedure [facility] [address] [place], [place] [address] NOMS BCP OBStart: 03-11-2025 End: 48-29-2103Ratwd fetoprotein, maternalAlpha fetoprotein, maternal Lab Routine Screening, , for anatomic survey ([facility]) 21 weeks gestation of ([facility]) Second trimester ([facility]) Expected: 03/11/2025 (Approximate), Expires: 04/10/2025NOT[facility] HealthcareComment on above: Expected: 03/11/2025 (Approximate), Expires: 04/10/2025Start: 03-11-2025 End: 05-97-7441CR for pregnancyUS OB 14+ weeks anatomy scan Imaging Routine Screening, , for anatomic survey ([facility]) Expected: 03/11/2025, Expires: 06/11/2025NOT[facility] HealthcareComment on above:Expected: 03/11/2025, Expires: 06/11/2025Start: 02-16-2025 End: 36-76-6127Nkulewy encounter umyzbfhnu94/02/2025 3:30 PM EDT Routine [facility] [address] [address] Jody Kimble PA [address] [place] [address] NOMS BCP OBStart: 01-19-2025 End: 75-49-5779SZK panel - Blood by Automated countCBC Lab Routine Diabetes mellitus screening Expected: 01/19/2025 (Approximate), Expires: 01/19/2026[facility] Work Phone: comment on above:Expected: 01/19/2025 (Approximate), Expires: 01/19/2026Start: 01-19-2025 End: 02-88-8589Ytoajoddoha of glucose 1 hour after glucose challenge for glucose tolerance testGlucose tolerance, 1 hour Lab Routine Diabetes mellitus screening Expected: 01/19/2025 (Approximate), Expires: 01/19/2026[facility] HealthcareComment on above:Expected: 01/19/2025 (Approximate), Expires: 01/19/2026Start: 01-19-2025 End: 66-96-0290Xxvvcat encounter llygborzp35/05/2025 2:00 PM EDT Routine [facility] [address] [place] [address] Yousif Aparicio, DO [address] [place] [address] [place] [address] NOMS BCP OBStart: 01-01-2025 End: 54-83-7829IJP/RhABO/Rh Lab Routine Missed menses , unspecified gestational age Expected: 01/01/2025 (Approximate), Expires: 01/01/2026NOT[facility] HealthcareComment on above:Expected: 01/01/2025 (Approximate), Expires: 01/01/2026Start: 01-01-2025 End: 97-48-8971Pvgml type and Indirect antibody screen panel - BloodType and screen Lab Routine Missed menses , unspecified gestational age Expected: 01/01/2025 (Approximate), Expires: 01/01/2026[facility] Work Phone: comment on above:Expected: 01/01/2025 (Approximate), Expires: 01/01/2026Start: 01-01-2025 End: 92-51-3433Lcmhn of abuse panel - Urine by Screen methodRapid drug screen, urine Lab Routine , unspecified gestational age Encounter for supervision of normal first in first trimester Expected: 01/01/2025 (Approximate), Expires: 01/01/2026NOT[facility] HealthcareComment on above:Expected: 01/01/2025 (Approximate), Expires: 01/01/2026Start: 45-78-5744QuijqkitiDelaware County Hospital CenterStart: 81-70-6347Dosyojvz admissionDelaware County Hospital CenterStart: 53-45-1337ZxqpcxsgrDelaware County Hospital CenterStart: 10-17-2024 [facility] CenterStart: 77-95-8560KssjvvsgtDelaware County Hospital CenterStart: 72-28-6575MuumjnixnDelaware County Hospital CenterStart: 10-16-2024 Referral to Social ServicesDelaware County Hospital CenterStart: 10-15-2024 Referral to psychiatristDelaware County Hospital CenterStart: 10-15-2024 Referral to neurologistDelaware County Hospital CenterStart: 10-15-2024 [facility]atart: 77-98-9314Fapkyvgwy for malignant neoplasm of cervixHPV/CotestNOMS HealthcareStart: 12-12-2021 End: 47-92-7328XLU W Auto Differential panel - BloodCBC + DIFF Lab Routine Iron deficiency anemia, unspecified iron deficiency anemia type Expected: 12/12/2021, Expires: [facility]CS[facility] Work Phone: Comment on above:Expected: 12/12/2021, Expires: 02/11/2022tart: 81-46-9239Qgpxcohgl vaccinationINFLUENZA (#1)[facility] Start: 53-90-7872Oipejqsz cancer screenCervical cancer [place], [place]Comment [place]poned from 2015 (Not Indicated)Start: 06-26-2020 Screening for malignant neoplasm of cervixCervical cancer [place], [place]Comment [place]poned from 2015 (Not Indicated)Start: 13-30-9923Rtkgiwdfi vaccinationFlu vaccine (#1)[facility]: 11-21-2019 End: 95-45-6112Kenzdhdxr Ivgjlovnj92/06/2020 Ancillary Procedure Obstetrics and GynecologyOH[facility]ET[facility]ICS & GYNECOLOGYStart: 06-26-2019 End: 21-74-9475Wvgxvwu Jacxnddm83/10/2019 Routine Obstetrics and Gynecology [place], Georgette Wong APRN - CNM [address] [place] [address] [phone] [facility] OB/GYNStart: 05-18-2019 Influenza vaccinationFlu vaccine (#1)[place], [place]Start: 2015 Cervical cancer screenCervical cancer screenThe [facility]: 81-29-4638LNT TESTINGPAP TESTINGAdena Pike Medical Centertart: 91-70-1414JPvR/Tdap/Td vaccine (1 - Tdap)DTaP/Tdap/Td vaccine (1 - Tdap)[place], [place]Start: 72-51-6914Uhqvq microalbumin profileDTAP,TDAP,TD (1 - Tdap)[facility] Start: 72-86-8987HOUJJCOGB C SCREENINGHEPATITIS C SCREENINGW[facility] Medical Center Start: 93-48-4308SPP SCREENINGHIV SCREENINGAdena Pike Medical Centertart: 32-26-3253XOA vaccine (1 - Female 3-dose series)HPV vaccine (1 - Female 3-dose series)[facility]: 45-72-6987Aienetxvh Vaccine (1 of 2 - 13+ 2-dose series) Varicella Vaccine (1 of 2 - 13+ 2-dose series)[facility]: 76-00-1582Qducs depression screening assessmentDEPRESSION SCREENINGAdena Pike Medical Centertart: 47-38-8430HDqC/Tdap/Td vaccine (1 - Tdap)DTaP/Tdap/Td vaccine (1 - Tdap)[facility]: 30-28-2851INQ vaccine (1 - 2-dose series)HPV vaccine (1 - 2-dose series)[facility]: 19-66-3776HUO vaccine (1 - Female 2-dose series)HPV vaccine (1 - Female 2-dose series)[place] Start: 64-02-4980Kmgpaaifepto 0-64 years Vaccine (1 of 1 - PPSV23)Pneumococcal 0-64 years Vaccine (1 of 1 - PPSV23)[facility]: 26-49-4855RYVOB- 19 VACCINE (1)COVID-19 VACCINE (1)[facility] Centertart: 49-65-8229Hibxwefzf vaccine (1 of 2 - 2-dose childhood series)Varicella vaccine (1 of 2 - 2-dose childhood series)[place] End: 33-54-2370Oalvkxpu identified Cx Nom (U)Urine Culture Microbiology Routine Amenorrhea Positive urine test Encounter for supervision of normal in first trimester, unspecified 1 Occurrences starting 11/20/2019 until 11/20/2019[place], [place]Comment [place]:1 Occurrences starting 11/20/2019 until 11/20/2019Bacteria identified Cx Nom (U)[place] End: 48-30-8484Blwufurx identified Cx Nom (U)Urine Culture Microbiology Routine Amenorrhea Positive urine test Encounter for supervision of normal in first trimester, unspecified 1 Occurrences starting 06/19/2019 until 06/19/2019[place], RIComment on above:1 Occurrences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
--- OUTSIDE RECORDS SUMMARY | 2025-07-15 05:32 | XMS_ITS | Encounter Summary ---
Author Organization [facility] Address [address] [place] [address] Care Team Providers Care Automatic Quilling Machine Operator Name Role Phone Unavailable Primary Care Provider Unavailabl e Encounter Details DateTypeDepartmentCare Team (Latest Contact Info)Gnmxryfupju75/21/2025amboo flowsheet [facility] [address] [place] [phone] Yousif Aparicio DO [address] [place] [address] Social History Tobacco UseTypesPacks/DayYears UsedDateSmoking Tobacco: NeverSmokeless Tobacco: NeverAlcohol UseStandard Drinks/WeekCommentsNever0 (1 standard drink = 0.6 oz pure alcohol)PHQ-2AnswerDate RecordedPatient Health Questionnaire-2 Score0 06/11/2025Estimated Date of QdebhucaNmmwolfkLbb53/05/2025Based on UltrasoundSex and Gender InformationValueDate RecordedSex Assigned at BirthNot on fileLegal AfcTdebfj89/15/2023 8:06 PM EDTGender IdentityNot on fileSexual OrientationNot on filedocumented as of this encounter Plan of Treatment Not on file documented as of this encounter Visit Diagnoses Not on filedocumented in this encounter
--- OUTSIDE RECORDS SUMMARY | 2025-07-15 05:33 | XMS_ITS | Encounter Summary ---
Author Organization [facility] Address [address] [facility] [place] [address] Care Team Providers Care Industrial Plant Custodian Name Role Phone Unavailable Primary Care Provider Unavailabl e Encounter Details DateTypeDepartmentCare Team (Latest Contact Info)Plnuyggoulu38/24/2025Patient Outreach [facility] [address] [place] [address] Jody Gentile LPN [address], [place] [id number] Social History Tobacco UseTypesPacks/DayYears UsedDateSmoking Tobacco: NeverSmokeless Tobacco: NeverAlcohol UseStandard Drinks/WeekCommentsNever0 (1 standard drink = 0.6 oz pure alcohol)PHQ-2AnswerDate RecordedPatient Health Questionnaire-2 Score0 07/10/2025Estimated Date of DjonuazuDcbocswgGkm73/05/2025Based on UltrasoundSex and Gender InformationValueDate RecordedSex Assigned at BirthNot on fileLegal RbdVkoita45/15/2023 8:06 PM EDTGender IdentityNot on fileSexual OrientationNot on filedocumented as of this encounter Functional Status * Over the past 2 weeks, how often have you been bothered by any of the following problems?QuestionAnswerDate of AssessmentAuthorLittle interest or pleasure in doing thingsNot at all07/10/2025 3:48 PM Jody Rao LPN Feeling down, depressed, or hopelessNot at all07/10/2025 3:48 PM Jody Rao LPNPatient Health Questionnaire-2 Eltny178 3:48 PM EDJody Garrett LPN documented as of this encounter Progress Notes * Jody Gentile LPN - 07/10/2025 3:47 PM EDT Monthly Outreach. Call to pt. Pt reports she feels baby moving frequently. Appetite and sleep are adequate although sleep is interrupted. Bowels are regular. Pt denies any depression or difficulty coping a this time. Meds reviewed. No OB OV scheduled at this time documented in this encounter Plan of Treatment Not on file documented as of this encounter Visit Diagnoses Not on filedocumented in this encounter
--- OUTSIDE RECORDS SUMMARY | 2025-07-15 05:33 | XMS_ITS | Patient Health Record ---
Author Organization [facility] Address [address] [place] [address] Care Team Providers Care Set And Exhibit Designer Name Role Phone Jennie Harris Primary Care Provider Prisca Moss Unavailable [phone] Marla Edwards Unavailable [phone] Jamila Winter Unavailable [phone] Allergies Allergen (clinical drug ingredient) Drug/Non Drug Allergy documented on EMR Reaction Allergy Type Onset Date Status WellbutrinSeizureDrug AllergyActive Reason For Referral Reason SCHEDULED 11/20 Hep C positive, needing treatment. Please evaluate and treat. Diagnosis 1 Chronic hepatitis C without hepatic coma (B18.2) Referral Organization [facility] Referring Provider First Name Prisca Referring Provider Last Name Isa Referring Provider Speciality Nurse Melanie guzman Referred Provider [facility] , . 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 Stress is when someone feels tense, nervous, anxious, or cant sleep at night because their mind is troubledA little bitIn the past year have you spent more than 2 nights in a row in a fdc, group home, senior care center, orjuvenile correctional facility?NoAre you a refugee?NoWhat [...] a drink containing alcohol in the past year?XdWzelme5TfgmgxzyzdnpejIqjsyrpzGnyupek Use:Social InfoQuestion AnswerNotesTobacco Control (Standard)Additional Findings: Tobacco user e-cigarette Problems Problem Type SNOMED Code ICD Code Onset Dates Problem Status W/U Status Risk Notes Problem Tobacco user (271706132) Nicotin e dependence, unspecified, uncomplicated (F17.200) ActiveconfirmedProblemAnxiety (45196871)Anxiety (F41.9)ActiveconfirmedProblem Bipolar 1 disorder (014880693)Bipolar 1 disorder (F31.9)ActiveconfirmedProblem Neuropathy (840827393)Neuropathy (G62.9)ActiveconfirmedProblemChronic hepatitis C (421239735)Chronic hepatitis C without hepatic coma (B18.2)Activeconfirmed ProblemRecurrent depression (409219785)Recurrent depression (F33.9)Active confirmed Vital Signs Heart Rate 90 /min 02/17/2025 Acujgohffmv96.1 degrees Squrqiejyy93/03/2025Respiratory Rate20 /min02/17/2025 Fabrhcro61 %02/17/2025lood pressure lxjlatqul97 mm Hg02/17/20253289Euqqga4jh5vh in 02/17/2025lood pressure mm Hg02/17/20259889Yuugun741.2 lbs02/17/2025MI 27.47 kg/m202/17/2025 Encounters Encounter Location Date Provider Diagnosis [facility] [address] [place] [address] 07/15/2024 Prisca barbarazzMurray Neuropathy G62.9 [facility] [address] [place] [address] 07/16/2024 Prisca zzzMurray Chronic constipation K59.09 [facility] [address] [place] [address] 08/19/2024 Prisca zzzMurray Neuropathy G62.9 [facility] [address] [place] [address] 10/24/2024 Prisca zzzMurray Chronic constipation K59.09 [facility] [address] [place] [address] 12/09/2024 Prisca barbarazzMurray Chronic constipation K59.09 [facility] [address] [place] [address] 12/22/2024 Prisca Tiffanierray Bipolar 1 disorder F31.9 ; Anxiety F41.9 and Neuropathy G62.9 [facility] [address] [place] [address] 01/12/2025 Prisca zzzMurray Chronic constipation K59.09 [facility] [address] [place] [address] 01/19/2025 Jamila Maggy Anxiety F41.9 and Bipolar 1 disorder F31.9 [facility] [address] [place] [address] 01/21/2025 Marla Edwards Neuropathy G62.9 [facility] [address] [place] [address] 02/20/2025 Jennie Harris Bipolar 1 disorder F31.9 and Neuropathy G62.9 [facility] [address] [place] [address] 03/24/2025 Jennie Harris Bipolar 1 disorder F31.9 and Neuropathy G62.9 [facility] [address] [place] [address] 04/22/2025 Jennie Harris Neuropathy G62.9 [facility] [address] [place] [address] 05/25/2025 Jennie Harris Neuropathy G62.9 [facility] [address] [place] [address] 06/24/2025 Jennie Harris Bipolar 1 disorder F31.9 [facility] [address] [place] [address] 06/29/2025 Jennie Harris Neuropathy G62.9 [facility] [address] [place] [address] 11/21/2024 Prisca erikaMurrjacqui Sore throat J02.9 ; Neuropathy G62.9 ; Chronic constipation K59.09 ; Bipolar 1 disorder F31.9 and Anxiety F41.9 [facility] [address] [place] [address] 02/17/2025 Jennie Harris Bipolar 1 disorder F31.9 ; Anxiety F41.9 ; 17 weeks gestation of Z3A.17 and Upper respiratory tract infection, unspecified type J06.9 [facility] [address] [place] [address] 10/23/2024 Prisca Moss Anxiety F41.9 ; Chronic hepatitis C without [...] today, 30 day supply.5Chronic constipation (ICD-10 - K59.09)08/19/2024Neuropathy (ICD-10 - G62.9)06/29/2025Neuropathy (ICD-10 - G62.9)05/25/2025Neuropathy (ICD-10 - G62.9)03/24/2025ipolar 1 disorder (ICD-10 - F31.9)02/20/2025ipolar 1 disorder (ICD-10 - F31.9)5Anxiety (ICD-10 - F41.9)Discontinue propranolol start celexa 10mg daily. Instructed patient to let Dr. Aparicio financial compliance manager know she started celexa. Follow up in 3 months. All questions and concerns addressed.02/17/2025ipolar 1 disorder (ICD-10 - F31.9)01/19/2025 Anxiety (ICD-10 - F41.9)01/12/2025hronic constipation (ICD-10 - K59.09) 12/22/2024ipolar 1 disorder (ICD-10 - F31.9)12/09/2024hronic constipation (ICD-10 - K59.09)01/21/2025Neuropathy (ICD-10 - G62.9)04/22/2025Neuropathy (ICD- 10 - G62.9)06/24/2025ipolar 1 disorder (ICD-10 - F31.9)10/23/2024hronic hepatitis C without hepatic coma (ICD-10 - B18.2)Will place referral to GI for further evaluation & management. Patient in agreement with plan.07/15/2024 Neuropathy (ICD-10 - G62.9)07/16/2024hronic constipation (ICD-10 - K59.09) 10/23/2024Neuropathy (ICD-10 - G62.9)Will re-start gabapentin at lower dose, 300mg TID. [...] of agreement and subsequent refills. Pt verbalizes understanding.5Anxiety (ICD-10 - F41.9) 01/19/2025ipolar 1 disorder (ICD-10 - F31.9)02/20/2025Neuropathy (ICD-10 - G62.9) weeks gestation of (ICD-10 - Z3A.17)03/24/2025 Neuropathy (ICD-10 - G62.9)11/21/2024hronic constipation (ICD-10 - K59.09)Will continue current medication. F/U 3 months & PRN11/21/2024ipolar 1 disorder (ICD-10 - F31.9)Will continue current medication. F/U 3 months & PRN/11/2024 Upper respiratory tract infection, unspecified type (ICD-10 - J06.9)Increase fluids and rest. Amoxicillin as directed. All questions and concerns addressed. 12/22/2024Neuropathy (ICD-10 - G62.9)10/23/2024Seizure (ICD-10 - R56.9)Patient reports she had seizures after taking wellbutrin in the past as well. Noted in chart to avoid any further prescribing in the future.10/23/2024Recurrent depression (ICD-10 - F33.9)Patient denies SI/HI at this time. Reports she is going through a divorce and has been having a hard time. She will call [facility] for her follow up appt. Reviewed red flag symptoms, parameters to RTC.11/21/2024 Anxiety (ICD-10 - F41.9)Anxiety stable. Will continue current medication. F/U 3 months & PRN02/17/2025OtherBody Mass Index: Care Instructions material was printed Plan Of Treatment No Information Insurance Providers Payer Name Payer Address Payer Phone Subscriber Number Group Number Insured Name Patient Relationship to Insured Coverage Start Date Coverage End Date [place] [place] [employer] [address] [place] [phone] [id number] Demetri ERVIN - patient is the [id number] 2022Wrap [facility]PO [address] [place] [id number], KRISTINSelf - patient is the vnzcvov68/01/2022Dental [place] EnvolvePO [address] [address] [place] [id number], KRISTINSelf - patient is the insured 3[employer] [facility] CentereyePO [address] [place] [phone] [id number], KRISTINSelf - patient is the [id number] 2023 [facility]-termed 22.[address] [place] [id number], KRISTINSelf - patient is the insured zMEDICAID [facility] after [facility]termed [address] [place] [id number], KRISTINSelf - patient is the [id number] Medical (General) History Medical History History ICD Code depression anxietyneuropathyFX of left cheekHospitalization History Reason Date(Month/Year) 1 / ICU 2024 Detox 11/20/2023 ChildBirth x3
--- OUTSIDE RECORDS SUMMARY | 2025-07-15 05:33 | XMS_ITS ---
Author Organization [facility] Source Produ ction (ClinicalSummary Clone) Address Unknown Care Team Providers Care Mainframe Analyst Name Role Phone Unavailable Primary Care Physician Unavailab le Results * [UNITY] ANEUPLOIDY NIPT Performed by: [employer] Component Value Range Date Fraction 7.4% 01/13/2025 06:02 am UTCRh(D) NIPTRhD ZGCRYAMH19/29/2025 06:02 am UTCSex Chromosome AneuploidyNOT TBFWSQNQ97/29/2025 06:02 am UTCMonosomy XLOW RISK <1 in 06:02 am UTCTrisomy 13LOW RISK <1 in 06:02 am UTCTrisomy 18LOW RISK <1 in 06:02 am UTCTrisomy 21LOW RISK <1 in 06:02 am UTCFetal CbzGVVH8201/13/2025 06:02 am UTCPregnancy LllbuythsYAVSXJXZB29/29/2025 06:02 am UTCFor detailed report, see PDFSee PDF 01/13/2025 06:02 am UTC01/13/2025 06:02 am UTC Social History Observation Value Start Date End Date
--- OUTSIDE RECORDS SUMMARY | 2025-07-15 05:33 | XMS_ITS | Clinical Summary ---
Author Organization [facility] Address [address] [place], [place] [id number] Care Team Providers Care Medicinal Plant Picker Name Role Phone Rodo Licnoln MD Primary Care Provider [phone] Allergies No known active allergies Medications MedicationSigDispense [...] InformationValueDate RecordedSex Assigned at BirthNot on fileLegal OjbMbhpmc31/08/2022 3:08 PM EST Gender IdentityNot on fileSexual OrientationNot on file Last Filed Vital Signs Vital SignReadingTime TakenCommentsBlood Asmvncbv849/70011/08/2021 11:34 AM EST Mpcuz57611/22/2022 11:34 AM SXZTamiucllcmh38.5 ??C (97.7 ??F)11/08/2021 11:34 AM ESTRespiratory Ftiz681011/08/2021 11:34 AM ESTOxygen Jvkdhgqlpj89%11/08/2021 11:34 AM ESTInhaled Oxygen Concentration--Ttscnn39.4 kg (205 lb 12.8 oz)11/08/2021 11:34 AM ESTHeight--Body Mass Index-- Plan of Treatment Health MaintenanceDue DateLast DoneCommentsAnxiety Tppfxrhzk89/27/2012Depression Bqmwhnzck52/27/2012HIV Shvkwnpky50/27/2012DTaP,Tdap,Td Vaccine (1 - Tdap) 2013Hepatitis B Vaccine (1 of 3 - 19+ 3-dose series)2013Cervical Cancer Fafzflyhe16/27/2015HPV Vaccine (1 - 3-dose SCDM series)1Covid-19 Vaccine (1 - 2024- season)2025Influenza Vaccine (#1)2025Hepatitis C SwfqcomfvEcgyvwqtk91/10/2020, 11/20/2019, 06/19/2019 Insurance Care Teams Team MemberRelationshipSpecialtyStart DateEnd Date Rodo Lincoln MD [address] [place] [address] PCP - GeneralFamily Medicine11/08/21
--- OUTSIDE RECORDS SUMMARY | 2025-07-15 05:33 | XMS_ITS | Encounter Summary ---
Author Organization [facility] Address [address] [place] [address] Care Team Providers Care Marketing Research Coordinator Name Role Phone Unavailable Primary Care Provider Unavailabl e Encounter Details DateTypeDepartmentCare Team (Latest Contact Info)Bxpykvoosep57/22/2025linisync Result Encounter [facility] Unsolicited Martha Rapp, CNM [address] [place] [address] Social History Tobacco UseTypesPacks/DayYears UsedDateSmoking Tobacco: NeverSmokeless Tobacco: NeverAlcohol UseStandard Drinks/WeekCommentsNever0 (1 standard drink = 0.6 oz pure alcohol)PHQ-2AnswerDate RecordedPatient Health Questionnaire-2 Score0 06/11/2025Estimated Date of JcabrcocKqeiihalWax93/05/2025Based on UltrasoundSex and Gender InformationValueDate RecordedSex Assigned at BirthNot on fileLegal IpfNctzgj94/15/2023 8:06 PM EDTGender IdentityNot on fileSexual OrientationNot on filedocumented as of this encounter Plan of Treatment Not on file documented as of this encounter Procedures Procedure NamePriorityDate/TimeAssociated DiagnosisCommentsTBH URINE MICROSCOPIC XTGCDusovrc14/22/2025 9:50 PM EDT TBH UA (CLEAN/CATCH) CLOTH BLEACHING RANGE OPERATOR CHIEF/MICRO IF IND.Ilwtbpu1907/08/2025 9:50 PM EDT CANNABINOID CONF, MS, XZOvfgdaa81/22/2025 9:50 PM EDT documented in this encounter Results * (ABNORMAL) CANNABINOID CONF, MS, UR (07/08/2025 9:50 PM EDT)ComponentValueRef RangeTest MethodAnalysis TimePerformed AtPathologist SignatureCANNABINOID Positive(A).TBHCARBOXY THC CONF, MS, KL014Ckirwt=56 ng/mLTBHComment: Performed at: ??UI - [facility] [address], [place] ??[id number] Barrel Liner: Levi Pritchard PhD, Phone: ??[phone] Specimen (Source)Anatomical Location / LateralityCollection Method / Volume Collection TimeReceived Time07/08/2025 9:50 PM EDT1 10:19 PM EDT Narrative CLIN[facility] - 07/14/2025 12:07 AM EDT Authorizing ProviderResult TypeResult StatusCorey Markus DOLAB BLOOD ORDERABLES Final ResultPerforming OrganizationAddressCity/State/ZIP CodePhone Number CLINISYNC TB * (ABNORMAL) TBH URINE MICROSCOPIC ONLY (07/08/2025 9:50 PM EDT)ComponentValue Ref RangeTest MethodAnalysis TimePerformed AtPathologist SignatureTBH WBC0-2 (A)NONE SEEN #/HPFTBHTBH RBC5-10(A)0 - 2 #/HPFTBHBACTERIA URINETRACE(A)NONE SEEN #/HPFTBHMUCUS URINENONE SEENNONE SEENTBHSQUAMOUS EPITHELIAL CELL URINEFEW (A)NONE/RARE #/LPFTBHCRYSTALS SEEN?None SeenNone Seen #/HPFTBHCAST SEEN?NONE SEENNONE SEEN #/LPFTBHSpecimen (Source)Anatomical Location / Laterality Collection Method / VolumeCollection TimeReceived Time07/08/2025 9:50 PM EDT 07/08/2025 10:02 PM EDT Narrative [facility] - 07/08/2025 10:17 PM EDT Authorizing ProviderResult TypeResult StatusValerie L Floro CNMCLINISYNCFinal ResultPerforming OrganizationAddressCity/State/ZIP CodePhone Number CLINISYNC TBH * (ABNORMAL) TBH UA (CLEAN/CATCH) CLOTH BLEACHING RANGE OPERATOR CHIEF/MICRO IF IND. (07/08/2025 9:50 PM EDT) ComponentValueRef RangeTest MethodAnalysis TimePerformed AtPathologist SignatureCOLOR URINELT. YELLOWYELLOWTBHCLARITY URINECLEARCLEARTBHSPECIFIC GRAVITY URINE1.0151.005 - 1.025TBHPH URINE7.05.0 - 9.0TBHPROTEIN URINENEGATIVE NEG/TRACE mg/dLTBHGLUCOSE URINE UANEGATIVENEGATIVE mg/dLTBHBILIRUBIN URINE NEGATIVENEGATIVETBHKETONES URINENEGATIVENEGATIVE mg/dLTBHBLOOD URINESMALL(A) NEGATIVETBHNITRITE URINENEGATIVENEGATIVETBHUROBILINOGEN URINE1.00.2 - 1.0 EU/dLTBHLEUKOCYTE ESTERASE URINENEGATIVENEGATIVETBHURINE MICROSCOPIC INDICATED YESTBHSpecimen (Source)Anatomical Location / LateralityCollection Method / VolumeCollection TimeReceived Time07/08/2025 9:50 PM EDT1 10:02 PM EDT Narrative [facility] - 07/08/2025 10:17 PM EDT Authorizing ProviderResult TypeResult StatusValedanyelle Rapp [facility] HEALTHLINISYNCFinal ResultPerforming OrganizationAddressCity/State/ZIP CodePhone Number CLINISYNC TB documented in this encounter Visit Diagnoses Not on filedocumented in this encounter
--- OUTSIDE RECORDS SUMMARY | 2025-07-15 05:33 | XMS_ITS | Encounter Summary ---
Author Organization [facility] Address [address] [place] [address] Care Team Providers Care Towel Hemmer Name Role Phone Unavailable Primary Care Provider Unavailabl e Encounter Details DateTypeDepartmentCare Team (Latest Contact Info)Lardmnoqzrm35/28/2025bstract [facility] [address] [place] [address] Yousif Aparicio DO [address] [place], [place] [id number] Social History Tobacco UseTypesPacks/DayYears UsedDateSmoking Tobacco: NeverSmokeless Tobacco: NeverAlcohol UseStandard Drinks/WeekCommentsNever0 (1 standard drink = 0.6 oz pure alcohol)PHQ-2AnswerDate RecordedPatient Health Questionnaire-2 Score0 07/10/2025Estimated Date of LmqhhcmrWdckemdiUvs57/05/2025Based on UltrasoundSex and Gender InformationValueDate RecordedSex Assigned at BirthNot on fileLegal EmpYlkjlu03/15/2023 8:06 PM EDTGender IdentityNot on fileSexual OrientationNot on filedocumented as of this encounter Plan of Treatment Not on file documented as of this encounter Visit Diagnoses Not on filedocumented in this encounter
--- OUTSIDE RECORDS SUMMARY | 2025-07-15 05:33 | XMS_ITS | Clinical Summary ---
Author Organization [facility] Address [address] [place] [address] Care Team Providers Care Assistant Director Of Admissions Name Role Phone Unavailable Primary Care Provider Unavailabl e Allergies Active AllergyReactionsCriticalityNoted HhxiEjeeromaYxeiahkaq97/05/2025 Other Reaction(s): Seizure Medications MedicationSigDispense QuantityRefillsLast FilledStart [...] supervision of normal first in first trimester ([facility])Take 1 tablet by mouth Daily 30 tablet 11001/01/328641/ctive linaCLOtide (Linzess) 145 MCG capsule 1 (one) time each day at the same timeActive iron polysaccharides (ProFe) 391.3 (180 Fe) MG capsule Indications:Low iron,DizzinessTake 1 capsule (391.3 mg) by mouth Daily 30 capsule 6005/06/800101/ctive promethazine (Phenergan) 12.5 MG tablet Indications:NauseaTake 1 tablet (12.5 mg) by mouth every 6 (six) hours if needed for nausea or vomiting 180 tablet 108//935835/5Active metoclopramide (Reglan) 10 MG tablet Indications:Nausea and vomiting in ([facility])Take 1 tablet (10 mg) by mouth in the morning and 1 tablet (10 mg) at noon and 1 tablet (10 mg) in the evening. Take before meals. Take 1 tablet by mouth 30 minutes prior to meals 3 times daily as needed for nausea. 90 tablet tive Active Problems ProblemNoted DateDiagnosed DateHistory of gestational ivwczjmx19/14/2025H/O pre- eclampsia in prior , currently ([facility])06/30/2025nemia 06/30/2025Estimated Date of MndhxifeInjgrxvoEac35/05/2025ased on Ultrasound Encounters DateTypeDepartmentCare LmdsHyqyezjenqv48/28/2025[place] [address] Yousif Aparicio DO 07/14/2025b[place] [address] Yousif Aparicio DO 07/10/2025Patient Outreach [facility] [address] [place] [id number] Jody Gentile LPN 07/08/2025linisync Result Encounter [facility] External Department Unsolicited Martha Rapp CNM 07/07/2025 2:20 PM EDTRoutine [facility] [place] [place] [address] Yousif Aparicio DO Third trimester ([facility]); 37 weeks gestation of ([facility])07/07/2025amboo flowsheet [facility] [address] [place] [address] Yousif Aparicio DO 06/30/2025 1:50 PM EDTRoutine [facility] [address] [place] [address] Jody Kimble PA Third trimester ([facility]); 36 weeks gestation of ([facility]); H/O pre-eclampsia in prior , currently ([facility]); H/O miscarriage, currently ([facility]); History of gestational diabetes; Anemia, unspecified type06/30/2025 1:00 PM EDTAncillary Procedure [facility] [place] [address] DANICA (amniotic fluid index) borderline low5Clinisync Result Encounter [facility] External Department Unsolicited Violet Woody NP 06/11/2025Patient Outreach [facility] [address] [place] [address] Jody Gentile LPN 06/08/2025 11:10 AM EDTRoutine [facility] [place] [place] [address] Yousif Aparicio DO Anemia, unspecified type (Primary Dx); Third trimester ([facility]); 33 weeks gestation of ([facility]); Gestational diabetes mellitus (GDM) in third trimester, gestational diabetes method of control unspecified ([facility]); H/O pre-eclampsia in prior , currently ([facility]); H/O miscarriage, currently ([facility]); DANICA (amniotic fluid index) borderline low06/08/2025amboo flowsheet [facility] [address] [place] [address] [place] [address] Yousif Aparicio DO 5Clinisync Result Encounter [facility] External Department Unsolicited Violet Woody, TELMA 05/20/2025 9:50 AM EDTRoutine [facility] [place] [address] Violet Woody NP Diarrhea, unspecified type (Primary Dx); Third trimester ([facility]); 31 weeks gestation of ([facility]); Nausea and vomiting in ([facility])05/20/2025 9:30 AM EDTAncillary Procedure [facility] [address] [place] [address] size inconsistent with dates ([facility])05/19/2025bstract [facility] [address] [place] [address] Anne-Marie Mcleod MA 05/14/2025bstract [facility] [address] [place] [address] Yousif Aparicio, 05/14/2025bstract [facility] [address] [place] [address] Yousif Aparicio, 05/14/2025Patient Outreach [facility] [address] [place] [address] Jody Gentile LPN 05/12/2025bstract [facility] [address] [place] [address] Yousif Aparicio DO 05/08/2025linisync Result Encounter [facility] External Department Unsolicited Violet Woody NP 05/06/2025 11:30 AM EDTRoutine [facility] [address] [place] [address] Yousif Aparicio, Third trimester ([facility]); 29 weeks gestation of ([facility]); size inconsistent with dates ([facility]); Low iron; Dizziness; Mlbjuf2105/06/2025amboo flowsheet [facility] [address] [place] [address] Yousif Aparicio, 04/29/2025Refill [facility] [address] [place] [address] Marva Wagner LPN Nausea and vomiting, unspecified vomiting type04/17/2025Patient Outreach [facility] [address] [place] [address] Jody Gentile LPN from Last 3 Months Social History Tobacco UseTypesPacks/DayYears UsedDateSmoking Tobacco: NeverSmokeless Tobacco: Never Tobacco Cessation:Counseling Given: Not Answered Alcohol UseStandard Drinks/WeekCommentsNever0 (1 standard drink = 0.6 oz pure alcohol)PHQ-2AnswerDate RecordedPatient Health Questionnaire-2 Zneeq602 Estimated Date of GzcfjmxeZpbdychaPjz88/05/2025ased on UltrasoundSex and Gender InformationValueDate RecordedSex Assigned at BirthNot on fileLegal JknHydgxn47/15/2023 8:06 PM EDTGender IdentityNot on fileSexual OrientationNot on file Last Filed Vital Signs Vital SignReadingTime TakenCommentsBlood Xptyzocm166/6807/07/2025 2:28 PM EDT Pulse--Temperature--Respiratory Rate--Oxygen Saturation--Inhaled Oxygen Concentration--Acqxit71.6 kg (199 lb 12.8 oz)07/07/2025 2:28 PM EDTHeight--Body Mass Index-- Plan of Treatment Health MaintenanceDue DateLast DoneCommentsMMR Vaccines (1 of 1 - Standard series)1995DTaP/Tdap/Td Vaccines (1 - Tdap)2001Varicella Vaccines (1 of 2 - 13+ 2-dose series)2007Hepatitis A Vaccines (1 of 2 - Risk 2-dose series)2013Hepatitis B Vaccines (1 of 3 - 19+ 3-dose series)2013HPV Vaccines (1 - 3-dose SCDM series)2021HPV/Kvkpzw984COVID-19 Vaccine (1 - season)2025Influenza Vaccine (#1)2025ervical Cancer Mytewnufa68/25/2028Pap Smear8003/11/2025, 06/20/2023HIB VaccinesAged Out No longer eligible based on patient's age to complete this topicIPV VaccinesAged OutNo longer eligible based on patient's age to complete this topicMeningococcal B VaccineAged OutNo longer eligible based on patient's age to complete this topicMeningococcal VaccineAged OutNo longer eligible based on patient's age to complete this topicPneumococcal Vaccine: Pediatrics (0 to 5 Years) and At-Risk Patients (6 to 64 Years)Aged OutNo longer eligible based on patient's age to complete this topicRotavirus VaccinesAged OutNo longer eligible based on patient's age to complete this topic Procedures Procedure NamePriorityDate/TimeAssociated DiagnosisCommentsCANNABINOID CONF, MS, KODjwntpf81/22/2025 9:50 PM EDT TB URINE MICROSCOPIC FURQGlrespw68/22/2025 9:50 PM EDT TBH UA (CLEAN/CATCH) FARMHAND/MICRO IF IND.Gctpkhe9307/08/2025 9:50 PM EDT POCT URINALYSIS LWFSBJXCCptzxxf36/21/2025 2:40 PM EDT 37 weeks gestation of ([facility]) POCT URINALYSIS ZSPEIGBYGuyzstn54/14/2025 1:50 PM EDT Third trimester ([facility]) US OB LIMITED 1+ ZCNKJLHNtqihom88/14/2025 1:18 PM EDT DANICA (amniotic fluid index) borderline low ALL CBC WITH AUTO UTZFBvgimna95/02/2025 2:11 PM EDT OVA AND PARASITE EKPAWJCufjaij22/22/2025 1:44 PM EDT Diarrhea, unspecified type STOOL WGEAOXSMjfnjhk10/22/2025 1:44 PM EDT Diarrhea, unspecified type POCT URINALYSIS CESFJPJJLrfqckh75/22/2025 11:32 AM EDT Third trimester ([facility]) OVA + PARASITE BXJFTbownzt42/04/2025 8:55 AM EDT POCT URINALYSIS PXUICAVLCcthayv77/03/2025 10:19 AM EDT Third trimester ([facility]) 31 weeks gestation of ([facility]) US OB FOLLOW UP TRANSABDOMINAL QYLYEMSJXmhfngw98/03/2025 10:01 AM EDT size inconsistent with dates ([facility]) ZPGXHCJAWZIXjqcvdc36/22/2025 9:39 AM EDT CCF AWMLNCPNCmjkbzt94/22/2025 9:39 AM EDT ALL CBC WITH AUTO BVPCTbmpujs60/22/2025 9:39 AM EDT GLUCOSE 1 WKDALvzvlai92/22/2025 9:39 AM EDT POCT URINALYSIS RICEAOFPLjxxkgj04/20/2025 11:51 AM EDT Third trimester ([facility]) PAP TUWMPMibzpaz71/25/2025 12:00 AM EDTfrom Last 3 Months or Most Recently Relevant to Health Maintenance Results * (ABNORMAL) TB URINE MICROSCOPIC ONLY (07/08/2025 9:50 PM EDT)ComponentValue [...] 07/08/2025 10:17 PM EDT Authorizing ProviderResult TypeResult StatusValeririckie Laura [facility] HospitalLINISYNCFinal ResultPerforming OrganizationAddressCity/State/ZIP CodePhone Number [facility] * (ABNORMAL) TBH UA (CLEAN/CATCH) FARMHAND/MICRO IF IND. (07/08/2025 9:50 PM EDT) ComponentValueRef RangeTest MethodAnalysis TimePerformed AtPathologist SignatureCOLOR URINELT. YELLOWYELLOWTBHCLARITY URINECLEARCLEARTBHSPECIFIC GRAVITY URINE1.0151.005 - 1.025TBHPH URINE7.05.0 - 9.0TBHPROTEIN URINENEGATIVE NEG/TRACE mg/dLTBHGLUCOSE URINE UANEGATIVENEGATIVE mg/dLTBHBILIRUBIN URINE NEGATIVENEGATIVETBHKETONES URINENEGATIVENEGATIVE mg/dLTBHBLOOD URINESMALL(A) NEGATIVETBHNITRITE URINENEGATIVENEGATIVETBHUROBILINOGEN URINE1.00.2 - 1.0 EU/dLTBHLEUKOCYTE ESTERASE URINENEGATIVENEGATIVETBHURINE MICROSCOPIC INDICATED YESTBHSpecimen (Source)Anatomical Location / LateralityCollection Method / VolumeCollection TimeReceived Time07/08/2025 9:50 PM EDT1 10:02 PM EDT Narrative [facility] - 07/08/2025 10:17 PM EDT Authorizing ProviderResult TypeResult StatusValenmrickie Laura [facility] HospitalISYNCNyu Langone Orthopedic Hospitalal ResultPerforming OrganizationAddressCity/State/ZIP CodePhone Number [facility] * (ABNORMAL) CANNABINOID CONF, MS, UR (07/08/2025 9:50 PM EDT)ComponentValueRef RangeTest MethodAnalysis TimePerformed AtPathologist SignatureCANNABINOID Positive(A).TBHCARBOXY THC CONF, MS, SY125Wutmby=48 ng/mLTBHComment: Performed at: ??UI - [facility] [address] [place], [place] ??[id number] Order Management Specialist: Levi Pritchard PhD, Phone: ??[phone] Specimen (Source)Anatomical Location / LateralityCollection Method / Volume Collection TimeReceived Time07/08/2025 9:50 PM EDT1 10:19 PM EDT Narrative [facility] - 07/14/2025 12:07 AM EDT Authorizing ProviderResult TypeResult StatusCorekelvin HENDERSON BLOOD ORDERABLES Final ResultPerforming OrganizationAddressCity/State/ZIP CodePhone Number [facility] * (ABNORMAL) POCT urinalysis dipstick manually resulted (07/07/2025 2:40 PM EDT) Only the most recent of5 resultswithin the time period is included. ComponentValueRef [...] / Laterality Collection Method / VolumeCollection TimeReceived OgwvOvdtq90/21/2025 2:40 PM EDT Narrative Authorizing ProviderResult TypeResult StatusYousif Aparicio DOPOINT OF CARE TEST ENTER/EDIT ORDERABLESFinal Result [...] viable intrauterine, cephalic presentation, normal and cardiac hensoc776 bpm. Normal normal amniotic fluid volume, 13.0 cm, largest fluid pocket 5.0 cm. Gestational age of 36 weeks, 5 days with an estimated delivery date of July 22, 2025. Procedure Note Kobe Sotelo MD - 06/30/2025 FINDINGS: Comparison made with prior examination of May 20, 2025. Single viable intrauterine, cephalic presentation, normal andcardiac bpm. Normal normal amniotic fluid volume, 13.0 cm, largest fluid pocket 5.0cm. Gestational age of 36 weeks, 5 days with an estimated delivery date ofJuly 22, 2025. IMPRESSION: 1. Single viable intrauterine (normal and cardiacactivity) 2. DANICA 13.4 cm increased from prior examination of May 20, 2025,9.6 cm. TRANSCRIBED BY: ELECTRONICALLY SIGNED BY: Kobe Sotelo MD Authorizing ProviderResult TypeResult StatusViolet Woody NPIMG OB US PROCEDURESFinal Result * (ABNORMAL) [...] 35.2 g/dLTBHTBH RDW24.9(H) 11.0 - 15.0 %TBHTBH HUP662095 - 450 10 3/uLTBHTBH MPV10.99.5 - 13.5 [...] PM EDT Authorizing ProviderResult TypeResult StatusViolet Woody NPCLINISYNCFinal ResultPerforming OrganizationAddressCity/State/ZIP CodePhone Number [facility] * Ova and parasite screen (06/08/2025 1:44 PM EDT)Specimen (Source)Anatomical Location / LateralityCollection Method / VolumeCollection TimeReceived Time StoolRectal contents / Unknown Narrative Authorizing ProviderResult TypeResult StatusViolet Woody NPLAB MICROBIOLOGY - GENERAL ORDERABLESFinal ResultPerforming OrganizationAddressCity/State/ZIP Code Phone Number EXTERNAL LAB * Stool culture (06/08/2025 1:44 PM EDT)Specimen (Source)Anatomical Location / LateralityCollection Method / VolumeCollection TimeReceived TimeStoolRectal contents / Unknown Narrative Authorizing ProviderResult TypeResult StatusViolet Woody Glio MICROBIOLOGY - GENERAL ORDERABLESFinal ResultPerforming OrganizationAddressCity/State/ZIP Code Phone Number [facility] * OVA + [...] a parasitic infection. Performed at: ?? - [facility] ??[id number] Order Management Specialist: Justice Flor PhD, Phone: ??[phone] Specimen (Source)Anatomical Location / LateralityCollection Method / Volume Collection TimeReceived Time05/21/2025 8:55 AM EDT05/21/2025 1:53 PM EDT Narrative [facility] - 05/26/2025 5:08 PM EDT STOOL Authorizing ProviderResult TypeResult StatusViolet CorneliusDataSift BLOOD ORDERABLESFinal ResultPerforming OrganizationAddressty/State/[facility] CodePhone Number [facility] * US OB follow up transabdominal approach [...] 2025 deliver at that time was July 21 weight by percentile was 50.1% * ??Estimated [...] BY: Kobe Sotelo MD Authorizing ProviderResult TypeResult StatusYousif IVERSONMG OB US PROCEDURES Final Result * GLUCOSE 1 HOUR (05/08/2025 9:39 AM EDT)ComponentValueRef RangeTest Method Analysis TimePerformed AtPathologist SignatureGLUCOSE 1 CDRH906<130 mg/dLTBH Specimen (Source)Anatomical Location / LateralityCollection Method / Volume Collection TimeReceived Time05/08/2025 9:39 AM EDT05/08/2025 9:41 AM EDT Narrative [facility] - 05/08/2025 10:01 AM EDT Authorizing ProviderResult TypeResult Glenys Woody NPLAB BLOOD ORDERABLESFinal ResultPerforming OrganizationAddressCity/State/ZIP CodePhone Number [facility] * (ABNORMAL) TRANSFERRIN (05/08/2025 9:39 AM EDT)ComponentValueRef RangeTest MethodAnalysis TimePerformed AtPathologist CbifctvgdYBELKPUSSDS171(A)192 - 364 mg/dLTBHComment: Performed at: ??CB - [facility] [address] ??[id number] Order Management Specialist: Justice Flor PhD, Phone: ??[phone] Specimen (Source)Anatomical Location / LateralityCollection Method / Volume Collection TimeReceived Time05/08/2025 9:39 AM EDT05/08/2025 9:41 AM EDT Narrative [facility] - 05/09/2025 4:07 AM EDT Authorizing ProviderResult TypeResult StatusYousif HENDERSON BLOOD ORDERABLES Final ResultPerforming OrganizationAddressCity/State/ZIP CodePhone Number [facility] * (ABNORMAL) [facility] FERRITIN (05/08/2025 9:39 AM EDT)ComponentValueRef RangeTest MethodAnalysis TimePerformed AtPathologist SignatureFERRITIN2.0(L)8.0 - 252.0 ng/mLTBHSpecimen (Source)Anatomical Location / LateralityCollection Method / VolumeCollection TimeReceived Time05/08/2025 9:39 AM EDT05/08/2025 9:41 AM EDT Narrative [facility] - 05/08/2025 11:07 AM EDT Authorizing ProviderResult TypeResult StatusCorey Markus DOCLINISYNCFinal Result Performing OrganizationAddressCity/State/ZIP CodePhone Number [facility] * Pap Smear (03/11/2025 12:00 AM EDT)Specimen (Source)Anatomical Location / LateralityCollection Method / VolumeCollection TimeReceived TimeSwabCervical swab / Unknown Narrative Authorizing ProviderResult TypeResult StatusCorey Markus DOLAB CYTOLOGY ORDERABLESFinal ResultPerforming OrganizationAddressCity/State/ZIP CodePhone Number EXTERNAL LAB from Last 3 Months or Most Recently Relevant to Health Maintenance Insurance
--- OUTSIDE RECORDS SUMMARY | 2025-07-15 05:33 | XMS_ITS | Encounter Summary ---
Author Organization [facility] Address [address] [place] [address] Care Team Providers Care Visualizer Name Role Phone Unavailable Primary Care Provider Unavailabl e Encounter Details DateTypeDepartmentCare Team (Latest Contact Info)Qunvqazviae27/28/2025bstract [facility] [address] [facility] [place] [address] Yousif Aparicio DO [address] [facility] [facility] [address] [place], [place] [id number] Social History Tobacco UseTypesPacks/DayYears UsedDateSmoking Tobacco: NeverSmokeless Tobacco: NeverAlcohol UseStandard Drinks/WeekCommentsNever0 (1 standard drink = 0.6 oz pure alcohol)PHQ-2AnswerDate RecordedPatient Health Questionnaire-2 Score0 07/10/2025Estimated Date of WwhyewwcZkoelskdMqw25/05/2025Based on UltrasoundSex and Gender InformationValueDate RecordedSex Assigned at BirthNot on fileLegal FjaXksqiv58/15/2023 8:06 PM EDTGender IdentityNot on fileSexual OrientationNot on filedocumented as of this encounter Plan of Treatment Not on file documented as of this encounter Visit Diagnoses Not on filedocumented in this encounter
--- OUTSIDE RECORDS SUMMARY | 2025-07-15 07:44 | XMS_ITS | CCD ---
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 results AbnormalNOMS HealthcareKetones Ql (U)NegativeNEGATIVE mg/dLNOMN Healthcare Leukocyte esterase Test strip Ql (U)NegativeNEGATIVENOMS HealthcareNITRITE URINE NegativeNEGATIVENOMS HealthcarepH (U)7.0 [pH]5.0 - 9.0NOMS HealthcarePROTEIN URINENegativeNEG/TRACE mg/dLNOMN HealthcareSPECIFIC GRAVITY URINE1.0151.005 - 1.025NOMS HealthcareURINE MICROSCOPIC INDICATEDYESNOMN HealthcareUROBILINOGEN URINE1.0 EU/dL0.2 - 1.0 EU/dLNOMN HealthcareCLINISYNCNOMS HealthcareUrinalysis macro (dipstick) panel (U)on 28-88-0436Rlxlnhheu, UANegativeNegative - 4(70) +++ mg/dLNOMN HealthcareBlood, UANegativeNegative - 50 Chriss/[facility] Healthcare Clarity, UAClearNOMN HealthcareColor, UAYellowNOMN HealthcareGlucose, UANegative Negative - 1999(110) ++++ mg/dL[facility] HealthcareInterpretation and review of laboratory resultsAbnormalNOMS HealthcareKetones, UAPositiveNegative - 160(16) ++++ mg/dLBEAVER VALLEY [facility] HealthcareLeukocytes, UANegativeNegative - 500+++ Leila/mcLBEAVER VALLEY HOSPITAL HealthcareNitrite, UANegativeNegative - PositiveNOMN HealthcarepH, UA6.05 - 9 NOMS HealthcareProtein, UATraceNegative - 2000(20) ++++ mg/dLNOMN HealthcareSpec Grav, UA1.0151 - 1.03NOMN HealthcareUrobilinogen, UA>=8.00.2 - 12 mg/dLNOExcelsior Springs Medical CenterNOMN HealthcareUS OB LIMITED 1+ FETUSESon 34-30-6777YN OB LIMITED 1+ FETUSESFINDINGS: Comparison made with prior examination of May 20, 2025. Single viable intrauterine, cephalic presentation, normal and cardiac surziy194 bpm. Normal normal amniotic fluid volume, 13.0 [...] Delivery: 07/22/25 Gestational Age as of 06/08/2025: 39m7kOfevkgpohr macro (dipstick) panel (U)on 34-62-0077Shccqbhci, UANegativeNegative - 4(70) +++ mg/dLNOMS HealthcareBlood, UANegativeNegative [...] mg/dLNOMS HealthcareNOMS HealthcareALL CBC WITH AUTO DIFFon 17-30-9643CLSSJSUDE ABSOLUTE HJKF5HULR HealthcareBasophils/100 WBC (Bld)0.2 %0.2 - 2.0 %NOMS HealthcareEosinophils/100 WBC (Bld)0.3 %Low0.9 - 7.0 %NOMS HealthcareErythrocyte distribution width (RBC) [Ratio]24.9 %High11.0 - 15.0 %NOMS HealthcareHematocrit (Bld) [Volume fraction] 32.3 %Low36.0 - 48.0 %NOMS HealthcareHemoglobin (Bld) [Mass/Vol]10.5 g/dLLow12.0 - 16.0 g/dLNOMS HealthcareIMMATURE GRANULOCYTES ABS AUTO0.05HighNOMS Healthcare Immature granulocytes/100 WBC (Bld)0.6 %High0.0 - 0.5 %NOMS Healthcare Interpretation and review of laboratory resultsAbnormDepartment of [facility] LYMPHOCYTES ABSOLUTE AUTO1.3NOExcelsior Springs Medical CenterLymphocytes/100 WBC (Bld)14 %Low20.5 - 60.0 %[facility] InstituteH (RBC) [Entitic mass]25.1 pgLow26.7 - 34.0 pgSt. Louis Behavioral Medicine InstituteHC (RBC) [Mass/Vol]32.5 g/dL29.9 - 35.2 g/dLSt. Louis Behavioral Medicine InstituteV (RBC) [Entitic vol]77.1 fLLow81.0 - 99.0 fLPemiscot Memorial Health SystemsMONOCYTES ABSOLUTE AUTO0.7 [facility] SystemsMonocytes/100 WBC (Bld)8.2 %1.7 - 12.0 %[facility] NEUTROPHILS ABSOLUTE AUTO6.8HighPemiscot Memorial Health SystemsNeutrophils/100 WBC (Bld)76.7 % High43.0 - 75.0 %[facility] SystemsPlatelet mean volume (Bld) [Entitic vol]10.9 fL 9.5 - 13.5 fLPemiscot Memorial Health SystemsTBH EO #0NOMS [facility] HospitalTBH SNL403TJUNExcelsior Springs Medical CenterTB RBC4.19LowPemiscot Memorial Health SystemsTB WBC8.9[facility] Health SystemsCLINISYNCNDoctors Hospital of [facility] Urinalysis macro (dipstick) panel (U)on 65-54-5812Grrnyixtr, UANegativeNegative - 4(70) +++ mg/dLNOMN HealthcareBlood, UANegativeNegative - 50 Chriss/mcLNOMN HealthcareClarity, UAClearNOMN HealthcareColor, UAYellowNOExcelsior Springs Medical CenterGlucose, UANegativeNegative - 1999(110) ++++ mg/dLBE[facility] HealthcareInterpretation and review of laboratory resultsNormalPemiscot Memorial Health SystemsKetones, UANegativeNegative - 160(16) ++++ mg/dLBE[facility] HealthcareLeukocytes, UANegativeNegative - 500+++ Leila/mcL [facility] HealthcareNitrite, UANegativeNegative - PositiveNOMN HealthcarepH, UA85 - 9 NOM HealthcareProtein, UANegativeNegative - 2000(20) ++++ mg/dLBE[facility] Healthcare Spec Grav, UA1.011 - 1.03NOExcelsior Springs Medical CenterUrobilinogen, UA1.00.2 - 12 mg/dLNovant HealthOVA + PARASITE EXAMon 38-73-5885[place] + PARASITE EXAM Final report.[facility] HealthcareComment on above:These results were obtained using wet preparation(s) and trichrome stained smear. This test does not include testing for Cryptosporidium parvum, Cyclospora, or Microsporidia. RESULT 1Comment.[facility] HealthcareComment on above:No ova, cysts, or parasites seen. One negative specimen does not rule out the possibility of a parasitic infection. Performed at: [address] [id number] Wash Worker: Justice Flor PhD, Phone: [phone] STOOL [facility] HEALTHISYStarr Regional Medical CenterUS OB FOLLOW UP TRANSABDOMINAL APPROACHon 62-06-0990ZW OB FOLLOW UP TRANSABDOMINAL APPROACHFINDINGS: Comparison made [...] Delivery: 07/22/25 Gestational Age as of 05/06/2025: 57l3sSlqnrtqmhj macro (dipstick) panel (U)on 02-46-6276Okzffdviu, UANegativeNegative - 4(70) +++ mg/dLNOMS HealthcareBlood, UANegativeNegative [...] - 1.03 NOMS HealthcareUrobilinogen, UA1.00.2 - 12 mg/dLNOMN HealthcareNOMN Healthcare GLUCOSE 1 HOURon 02-08-2967Ughidwo [Mass/Vol]121 mg/dLNINF - 130 mg/dLNOMS HealthcareCLINISYNCNOMS HealthcareUrinalysis macro (dipstick) panel (U)on 35-69-2572Arhvfluua, UANegativeNegative - 4(70) +++ mg/dLNOMS HealthcareBlood, UAPositiveNegative [...] - 1.03NOMS HealthcareUrobilinogen, UA0.20.2 - 12 mg/dLNOMS [facility] HealthcareUrinalysis macro (dipstick) panel (U)on 51-28-2421Ibftvbehi, UA NegativeNegative - 4(70) +++ mg/dLNOMS HealthcareBlood, UANegativeNegative - 50 Chriss/[facility] HealthcareClarity, UAClearNOMS HealthcareColor, UAYellowNOMN HealthcareGlucose, UANegativeNegative - 2000(110) ++++ mg/dLNOMN Healthcare Interpretation and review of laboratory resultsAbnormalNOMN HealthcareKetones, UANegativeNegative - 160(16) ++++ mg/dLBE[facility] HealthcareLeukocytes, UANegative Negative - 500+++ Leila/[facility] HealthcareNitrite, UANegativeNegative - Positive NOMS HealthcarepH, UA85 - 9NOMS HealthcareProtein, UATraceNegative - 2000(20) ++++ mg/dLNOMN HealthcareSpec Grav, UA1.011 - 1.03NOMN HealthcareUrobilinogen, UA0.20.2 - 12 mg/dLNOWashington County Memorial Hospital HealthcareIGP,APTIMA HPV,AGE GDLNon 86-07-9062ZGM GDLN ACOG TESTINGNote.[facility] HealthcareComment on above:TESTS RESULT FLAG UNITS REF RANGE LAB Clinician Provided Cytology Information Source.............[employer] Other.............. No. of containers..01 ThinPrep Vial Age Algo ACOG Keira... 30-65 01 FLAG LEGEND: L-Low Normal,H-High Normal,LL-Alert Low,HH-Alert High <-Panic Low,>-Panic High,A-Abnormal,AA-Critical Abnormal Performed at: 01 =[address] [address] Jesi Kuhn MD, HPV APTIMANegativeNegativeNOMS HealthcareComment on above:This nucleic acid amplification test detects fourteen high- risk HPV types (16,18,31,33,35,39,45,51,52,56,58,59,66,68) without differentiation. Performed at: =[address] [id number] Wash Worker: Jesi Kuhn MD, Phone: [phone] Performed at: [address] [id number] Wash Worker: Jesi Kuhn MD, Phone: [phone] IGP, APTIMA HPV, RFX 16/18,45Note.NOMS HealthcareComment on above:TESTS RESULT FLAG UNITS REF RANGE LAB DIAGNOSIS: 02 NEGATIVE FOR INTRAEPITHELIAL LESION OR MALIGNANCY. Specimen adequacy: 02 Satisfactory for evaluation. No endocervical component is identified. Performed by: 02 Janie Almazan, Precipitator . 02 Note: Note 02 The Pap [...] Low,>-Panic High,A-Abnormal,AA-Critical Abnormal Performed at: [address] [address] Jesi Kuhn MD, SPATULA-ALONE ENDOCERVIX CLINISYNCNOMS HealthcareRECURRENT VAGINITIS (HTRX)on 78-31-4079GKKUMCXSS VAGINAE 0NOMS HealthcareATOPOBIUM VAGINAENot detectedNOMS HealthcareBVAB 2,3 (BACTERIAL VAGINOSIS ASSOCIATED BACTERIA 2, 3); MOBILUNCUS JPQ7QKTC HealthcareBVAB 2,3 (BACTERIAL VAGINOSIS ASSOCIATED BACTERIA 2, 3); MOBILUNCUS SPPNot detectedNOMS HealthcareCANDIDA ALBICANS, PARAPSILOSIS, [id number] HealthcareCANDIDA ALBICANS, PARAPSILOSIS, TROPICALISNot detectedNOMS HealthcareCANDIDA GLABRATA0 NOMS HealthcareCANDIDA GLABRATANot detectedNOMS HealthcareCANDIDA [id number] HealthcareCANDIDA KRUSEINot detectedNOMS HealthcareCHLAMYDIA XDFNNTTEIZV0UNMB HealthcareCHLAMYDIA TRACHOMATISNot detectedNOMS HealthcareGARDNERELLA VAGINALIS0 NOMS HealthcareGARDNERELLA VAGINALISNot detectedNOMS HealthcareMEGASPHAERA (TYPES 1, 2)0NOMS HealthcareMEGASPHAERA (TYPES 1, 2)Not detectedNOMS Healthcare MYCOPLASMA [id number] HealthcareMYCOPLASMA GENITALIUMNot detectedNOMS HealthcareNEISSERIA MDERWOLKOOH9WHJN HealthcareNEISSERIA GONORRHOEAENot detected NOMS HealthcareTRICHOMONAS IMLHUUMRY0EFJG HealthcareTRICHOMONAS VAGINALISNot detectedNOMS HealthcareNOMS HealthcareUS OB 14+ [...] menstrual period. TRANSCRIBED BY: ELECTRONICALLY SIGNED BY: rAgentina JacksonNot AvailableComment on above:Order Comment: US OB ANATOMY SINGLE W US OB CERVICAL LENGTH Estimated Date of Delivery: 07/22/25 Gestational Age as of 03/11/2025: 39z1hAxnrdmnqzf macro (dipstick) panel (U)on 80-43-0094Pvwhtbatm, UANegativeNegative - 4(70) +++ mg/dLNOMS HealthcareBlood, UANegativeNegative [...] - 1.03 NOMS HealthcareUrobilinogen, UA0.20.2 - 12 mg/dLNOExcelsior Springs Medical CenterNOMN Healthcare Urinalysis macro (dipstick) panel (U)on 14-15-6799Cqrqayeyi, UANegativeNegative - 4(70) +++ mg/dLNOMS HealthcareBlood, UAPositiveNegative - 50 Chriss/[facility]onsil HospitalNOMN HealthcareComment on above:largeClarity, UACloudyNOMS HealthcareColor, UAYellow [facility] HealthcareGlucose, UANegativeNegative - 2000(110) ++++ mg/dLNOMN Healthcare Interpretation and review of laboratory resultsAbnormPremier Health Miami Valley Hospital HealthcareKetones, UANegativeNegative - 160(16) ++++ mg/dLBE[facility] HealthcareLeukocytes, UATrace Negative - 500+++ Leila/[facility] HealthcareNitrite, UANegativeNegative - Positive NOMS HealthcarepH, UA7.55 - 9NOMS HealthcareProtein, UATraceNegative - 2000(20) ++++ mg/dLNOMN HealthcareSpec Grav, UA1.021 - 1.03NOMN HealthcareUrobilinogen, UA1.00.2 - 12 mg/dLNOWashington County Memorial Hospital HealthcareBOX TESTon 65-32-3356DHQ TEST SENT OUTSteward Health Care SystemYrhkzcawkvGPD9AFFNOOLOT DlpjmgpqmiNJM426/23/2025NOExcelsior Springs Medical CenterUNITY BOX CLINISYNCPemiscot Memorial Health SystemsHCG ( test) Ql (U)on 64-15-1197Eqjs Test, Ur PositiveNegativeBEAVER VALLEY [facility] HealthcareNo Panel Informationon 05-94-3266Mrxpcfttjgqrbi and review of laboratory resultsAbCorewell Health [facility] HealthcareUS OB TRANSVAGINALon 84-29-0400TD OB TRANSVAGINALEXAM: US OB TRANSVAGINAL HISTORY: Dating. [...] II, MD, PHD at 08-Jan-2025 02:06:49 PM [facility] TeleradiologyNormalNot AvailableComment on above:Order Comment: US OB TRANSVAGINAL No LMP recorded.Urinalysis macro (dipstick) panel (U)on 78-95-1537Idqvshujo, UA NegativeNegative - 4(70) +++ mg/dLNOMS HealthcareBlood, [...] Serum or PlasmaOrdered By: Dane Erwin on 71-56-0147SOQ [Catalytic activity/Vol]Alanine aminotransferase [Enzymatic activity/volume] in Serum or PlasmaHigh7-52[facility] Albumin [Mass/volume] in Serum or Plasma by Bromocresol green (BCG) dye binding methoOrdered By: Dane Erwin on 53-00-7544Oovnjzp BCG dye [Mass/Vol] Albumin [Mass/volume] in Serum or Plasma by Bromocresol green (BCG) dye binding metho3.5-5.7FEast Liverpool City HospitalAlkaline phosphatase [Enzymatic activity/volume] in Serum or PlasmaOrdered By: Dane Erwin on 94-56-9798WRB [Catalytic activity/Vol]Alkaline phosphatase [Enzymatic activity/volume] in Serum or GbsrpqFgkj39-654YrxzcjygeOhiohealth Berger Hospital Aspartate aminotransferase [Enzymatic activity/volume] in Serum or PlasmaOrdered By: Dane Erwin on 41-35-8322ZFS [Catalytic activity/Vol]Aspartate aminotransferase [Enzymatic activity/volume] in Serum or Lxlqeo47-55DlufznwtlOhiohealth Berger HospitalBilirubin.total [Mass/volume] in Serum or PlasmaOrdered By: Dane Erwin on 24-48-3192Voruzawua [Mass/Vol]Bilirubin.total [Mass/volume] in Serum or Plasma0.3-1.0[facility] HospitalCalcium [Mass/volume] in Serum or PlasmaOrdered By: Dane Erwin on 10-19-2024 Calcium [Mass/Vol]Calcium [Mass/volume] in Serum or Plasma8.6-10.3FEast Liverpool City HospitalCarbon dioxide, total [Moles/volume] in Serum or Plasma Ordered By: Dane Erwin on 62-26-8168SC6 [Moles/Vol]Carbon dioxide, total [Moles/volume] in Serum or IssdboWelb42.0-31.0[facility] HospitalChloride [Moles/volume] in Serum or PlasmaOrdered By: Dane Erwin on 94-42-7440Hatncohn [Moles/Vol]Chloride [Moles/volume] in Serum or Eyvnsq22-239KbvtsudqxOhiohealth Berger HospitalComprehensive Metabolic Panelon 10-90-6326Xpojcgo [Mass/Vol]4.0 g/dLNormal3.5-5.7[facility] Comment on above:Performed By: #### CMP #### [place] [address] USAAlbumin/Globulin [Mass ratio]1.7 {ratio}NormalThe [facility] Physician GroupComment on above:Performed By: #### CMP #### [facility] [address] [place] [address] USAALP [Catalytic activity/Vol]117 U/TIcbd43-117Tbn [facility] Physician GroupComment on above:Performed By: #### CMP #### [place] [address] USAALT [Catalytic activity/Vol]131 U/LHigh7-52The [facility] Physician GroupComment on above:Performed By: #### CMP #### [place] [address] USAAnion gap [Moles/Vol]9.1 mmol/LNormal6.0-15.0The [facility] Physician GroupComment on above:Performed By: #### CMP #### [place] [address] USAAST [Catalytic activity/Vol]34 U/ZGhxwxj79-37Qhd [facility] Physician GroupComment on above:Performed By: #### CMP #### [facility] [address] [place] [address] USABilirubin [Mass/Vol]0.5 mg/dLNormal0.3-1.0The [facility] Physician GroupComment on above:Performed By: #### CMP #### [facility] [address] [place] [address] USACalcium [Mass/Vol]9.8 mg/dLNormal8.6-10.3The [facility] Physician GroupComment on above:Performed By: #### CMP #### [place] [address] USAChloride [Moles/Vol]101 mmol/VWwrkfx74-018Gnz [facility] Physician GroupComment on above:Performed By: #### CMP #### [facility] [address] [place] [address] USACO2 [Moles/Vol]33.1 mmol/LHigh21.0-31.0The [facility] Physician GroupComment on above:Performed By: #### CMP #### [facility] [address] [place] [address] USACreatinine [Mass/Vol]0.74 mg/dLNormal0.60-1.20The [facility] Physician GroupComment on above:Performed By: #### CMP #### [facility] [address] [place] [address] USACreatinine Clr Calc Vgrssvgx97.70NormOrlando Health St. Cloud Hospital Physician GroupComment on above:Result Comment: PERFORMED BY: [place] [address] PATHOLOGIST GLOBE CHANGER MARQUITA BOLAÑOS M.D.Performed By: #### CMP #### [place] [address] USAGFR/1.73 sq M.predicted MDRD (S/P/Bld) [Vol rate/Area] mL/min/{1.73_m2}NormalThe [facility] Physician GroupComment on above:Performed By: #### CMP #### [place] [address] USAGlobulin (S) [Mass/Vol]2.4 g/dLCommunity Hospital Physician GroupComment on above:Performed By: #### CMP #### [place] [address] USAGlucose [Mass/Vol]67 mg/lKWkn04-177Xsy [facility] Physician GroupComment on above:Result Comment: Random Glucose Reference Range is dependent on time and content of last meal. Glucose of more than 200 mg/dL in a nonstressed, ambulatory subject supports the diagnosis of Diabetes Mellitus. ADA recommended reference rangePerformed By: #### CMP #### [place] [address] USAPotassium [Moles/Vol]4.2 mmol/LNormal3.5-5.1The [facility] Physician GroupComment on above:Performed By: #### CMP #### [facility] [address] [place] [address] USAProtein [Mass/Vol]6.4 g/dLNormal6.4-8.9The [facility] Physician Trace Regional HospitalComment on above:Performed By: #### CMP #### [facility] [address] [place] [address] USASodium [Moles/Vol]139 mmol/NQaisji115-933Brw [facility] Physician GroupComment on above:Performed By: #### CMP #### [facility] [address] [place] [address] USAUrea nitrogen [Mass/Vol]17 mg/dLNormal7-25The [facility] Physician GroupComment on above:Performed By: #### CMP #### [facility] [address] [place] [address] USACreatinine [Mass/volume] in Serum or PlasmaOrdered By: Dane Erwin on 75-41-5465Goqzmqzgza [Mass/Vol]Creatinine [Mass/volume] in Serum or Plasma0.60-1.20[facility] HospitalGlobulin Calc (S) [Mass/Vol]Ordered By: Dane Erwin on 46-88-2152Irjopplz (S) [Mass/Vol] Serum globulin measurement by calculation (mass/volume)[facility] HospitalGlucose [Mass/volume] in Serum or PlasmaOrdered By: Dane Erwin on 58-19-7307Qxhyclt [Mass/Vol]Glucose [Mass/volume] in Serum or SmmlesIkp17-081GufpvnkwjOhiohealth Berger HospitalComment on above:ADA recommended reference rangeRandom Glucose Reference Range is dependent on time and content of last meal. Glucose of more than 200 mg/dL in a nonstressed, ambulatory subject supports the diagnosisof Diabetes Mellitus.No Panel InformationOrdered By: Dane Erwin on 86-52-1296Dtdxqjlyf GFR (CKD-EPI)> 60.0 mL/Min [facility] CenterPharmacy Creatinine Clearance (Chem98.70 [facility] HospitalPotassium [Moles/volume] in Serum or Plasma Ordered By: Dane Erwin on 29-56-3965Hhrvjapyf [Moles/Vol]Potassium [Moles/volume] in Serum or Plasma3.5-5.1FEast Liverpool City HospitalProtein [Mass/volume] in Serum or PlasmaOrdered By: Dane Erwin on 10-19-2024 Protein [Mass/Vol]Protein [Mass/volume] in Serum or Plasma6.4-8.9Wilson Healtherum or plasma albumin/globulin mass ratioOrdered By: Dane Erwin on 34-98-6645Akumxgg/Globulin [Mass ratio]Serum or plasma albumin/globulin mass ratioWilson Healtherum or plasma anion gap determinationOrdered By: Dane Erwin on 12-13-7233Muecz gap [Moles/Vol]Serum or plasma anion gap determination6.0-15.0Wilson Healthodium [Moles/volume] in Serum or PlasmaOrdered By: Dane Erwin on 51-05-3052Annqhs [Moles/Vol]Sodium [Moles/volume] in Serum or Vszkgf868-514ZmikwakslOhiohealth Berger HospitalUrea nitrogen [Mass/volume] in Serum or PlasmaOrdered By: Dane Erwin on 63-91-4948Nefv nitrogen [Mass/Vol]Urea nitrogen [Mass/volume] in Serum or Plasma7-25[facility] HospitalCholesterol [Mass/volume] in Serum or PlasmaOrdered By: Dane Erwin on 71-11-1177Ubpkfuzcmpv [Mass/Vol]Cholesterol [Mass/volume] in Serum or FcmaqaBxw131-612KcoipxuylOhiohealth Berger Hospital Comment on above:Chol less than 200 mg/dl low riskChol 201-239 mg/dl borderline riskChol 240 mg/dl and greater high riskCholesterol in HDL [Mass/volume] in Serum or PlasmaOrdered By: Dane Erwin on 84-52-1768Jfpiwlbawgb in HDL [Mass/Vol]Serum or plasma high density lipoprotein (HDL) cholesterol aydxamctupe41-01AerdttyvhOhiohealth Berger HospitalComment on above:HDL CHOL ATP- III CLASSIFICATION Cardiovascular RiskHDL > or equal to 60 mg/dL LOWHDL < 40 mg/dL HIGHCholesterol in LDL Calc [Mass/Vol]Ordered By: Dane Erwin on 37-29-6944Rrdypbljdgt in LDL [Mass/Vol]Cholesterol in LDL [Mass/volume] in Serum or Plasma by calculation0-100[facility] HospitalComment on above:LDL ATP III CLASSIFICATIONLDL less than 100 mg/dL OptimalLDL 100-129 mg/dL Near or above euwzctcIOV704-429 mg/dL Borderline highLDL 160-189 mg/dL HighLDL greater than 189 mg/dL Very highCholesterol in VLDL Calc [Mass/Vol]Ordered By: Dane Erwin on 10-98-6273Sydfrgpepcq in VLDL [Mass/Vol]Cholesterol in VLDL [Mass/volume] in Serum or Plasma by calculationOhiohealth Berger HospitalLipid Panelon 45-04-2587Bzdfdfyxkil [Mass/Vol]115 mg/wQAmu069-782Itn [facility] Physician GroupComment on above:Result Comment: Chol less than 200 mg/dl low risk Chol 201-239 mg/dl borderline risk Chol 240 mg/dl and greater high riskPerformed By: #### URDS #### [facility] [address] [place] [address] USACholesterol in HDL [Mass/Vol]36 mg/tXSmjzfu31-12Ltr [facility] Physician GroupComment on above:Result Comment: HDL CHOL ATP-III CLASSIFICATION Cardiovascular Risk HDL > or equal to 60 mg/dL LOW HDL < 40 mg/dL HIGHPerformed By: #### URDS #### [facility] [address] [place] [address] USACholesterol.total/Cholesterol in HDL [Mass ratio]3.2 {ratio}Normal<5.0The [facility]al Health HospitalComment on above:Performed By: #### URDS #### [facility] [address] [place] [address] USALDL Cholesterol,Axjkuhokvq95 mg/dLNormal0-100The [facility] Physician GroupComment on above:Result Comment: LDL ATP III CLASSIFICATION LDL less than 100 mg/dL Optimal LDL 100-129 mg/dL Near or above optimal LDL 130-159 mg/dL Borderline high LDL 160-189 mg/dL High LDL greater than 189 mg/dL Very highPerformed By: #### URDS #### [facility] [address] [place] [address] USATriglyceride w/Alvtsr691 mg/dLNormal0-149The [facility] Physician GroupComment on above:Result Comment: TRIG ATP III CLASSIFICATION TRIG less than 150 mg/dL Normal TRIG 150-199 mg/dL Borderline high TRIG 200-500 mg/dL High TRIG greater than 500 mg/dL Very high Standard traceable to the Center for Disease Conrtrol and Prevention (CDC) test method.Performed By: #### URDS #### [facility] [address] [place] [id number] USAVLDL BVUMQPZWTLP35 mg/dLNormalThe [facility] Physician GroupComment on above:Performed By: #### URDS #### [facility] [address] [place] [id number] USASerum or plasma total cholesterol/high density lipoprotein (HDL) cholesterol mass ratOrdered By: Dane Erwin on 10-18-2024 Cholesterol.total/Cholesterol in HDL [Mass ratio]Serum or plasma total cholesterol/high density lipoprotein (HDL) cholesterol mass rat<5.0[facility] HospitalThyroid Stim Hormone w/Rflxon 29-24-1224Kwfpnfv Stim Hormone w/Rflx2.83 u[iU]/mLNormal0.45-5.33The [facility] Physician GroupComment on above:Performed By: #### URDS #### [address] [address] USAThyrotropin [Units/volume] in Serum or PlasmaOrdered By: Dane Erwin on 99-48-9015DOW QnThyrotropin [Units/volume] in Serum or Plasma0.45-5.33[facility] Berger HospitalTriglyceride [Mass/volume] in Serum or PlasmaOrdered By: Dane Erwin on 84-26-3117Usayqubbwisk [Mass/Vol]Triglyceride [Mass/volume] in Serum or Plasma0-149[facility] HospitalComment on above:TRIG ATP III CLASSIFICATIONTRIG less than 150 mg/dL NormalTRIG 150-199 mg/dL Borderline highTRIG 200-500 mg/dL High TRIG greater than 500 mg/dL Very highStandard traceable to the Center for Disease Co nrtrol and Prevention ([facility]) test method.Vitamin D 25 Hydroxy Totalon 10-18-2024 Vitamin D 25 Hydroxy Total10.8 ng/oODal58-915Rld [facility] Comment on above:Result Comment: VITAMIN D STATUS 25(OH)VITAMIN D RANGE (ng/mL) Deficient <20 Insufficient 20 to <30 Sufficient 30 to 100 Reference: Sari Taylor, Mayito SNYDER, et al. Evaluation,treatment, and prevention of vitamin D deficiency; an Endocrine Society clinical practice guideline. JCEM. 2010; 96(7):1911-30. PERFORMED BY: [place] [address] PATHOLOGIST GLOBE CHANGER MARQUITA BOLAÑOS M.D.Performed By: #### URDS #### [facility] [address] [place], [place] [address]Vitamin D+Metabolites [Mass/volume] in Serum or Plasma Ordered By: Dane Erwin on 27-86-8177Wupfeat D+Metabolites [Mass/Vol] Vitamin D+Metabolites [Mass/volume] in Serum or TkxwobEhj26-251YeaxyormuOhiohealth Berger HospitalComment on above:VITAMIN D STATUS 25(OH)VITAMIN D RANGE (ng/mL) Deficient <20 Insufficient 20 to <08Gdzimiawcn90 to 100Reference: Sari Taylor, Mayito SNYDER, et al. Evaluation,treatment, and prevention of vitamin D deficiency; an Endocrine Society clinical practice guideline. JCEM. 2010; 96(7):1911-.LIZBETH Antinuclear Antibodieson 02-31-0420Szuywnjgzgh Abs, IFAPositiveCritically abnormal.[facility] Physician GroupComment on above:Result Comment: Negative <1:80 Borderline 1:80 Positive >1:80Performed By: #### URDS #### [facility] [address] [place] [address] Delvin SwainommentNormal.The [facility] Physician GroupComment on above:Result Comment: Pattern Potential Disease Association Homogeneous Systemic Lupus Erythematosus, Drug Induced Systemic Lupus Erythematosus, Chronic Autoimmune hepatitis, Juvenile Idiopathic Arthritis Speckled Sjogren Syndrome, Systemic Lupus Erythematosus, Subacute Cutaneous Lupus, Lupus, Congenital Heart Block, Mixed Connective Tissue Disease, Scleroderma-diffuse, Scleroderma-Autoimmune Myositis Overlap Syndrome, Systemic Lupus Lfadptummyygs-Ztdzjvqvloh-Aghdiluage Myositis Overlap Syndrome, Systemic Autoimmune Rheumatic Disease, [...] Cytopenias, Linear Scleroderma, Antiphospholipid Syndrome Performed at: [facility] [address] [id number] Wash Worker: Justice Flor PhD, Phone: [phone] PERFORMED BY: [place] [address] PATHOLOGIST GLOBE CHANGER MARQUITA BOLAÑOS M.D.Performed By: #### URDS #### [place] [address] USASpeckled Snjkgyd5Grbv.The [facility] Physician GroupComment on above:Result Comment: Dense Fine Speckled pattern is noted. This pattern suggests the presence of DFS70 antibody which has a low prevalence in systemic autoimmune rheumatic diseases. ICAP nomenclature: AC-2,4,5,29Performed By: #### URDS #### [place] [address] USAAlanine aminotransferase [Enzymatic activity/volume] in Serum or PlasmaOrdered By: Leola Smith on 56-19-2049YWG [Catalytic activity/Vol]Alanine aminotransferase [Enzymatic activity/volume] in Serum or PlasmaWheeling Hospital7-52[facility] Berger HospitalAlbumin [Mass/volume] in Serum or Plasma by Bromocresol green (BCG) dye binding methoOrdered By: Leola Smith on 40-73-6736Cyhjkra BCG dye [Mass/Vol]Albumin [Mass/volume] in Serum or Plasma by Bromocresol green (BCG) dye binding methoLow3.5-5.7FEast Liverpool City HospitalAlkaline phosphatase [Enzymatic activity/volume] in Serum or PlasmaOrdered By: Leola Smith on 43-25-5088AST [Catalytic activity/Vol]Alkaline phosphatase [Enzymatic activity/volume] in Serum or LrwugeMmjn76-494KrkkvzuyhOhiohealth Berger HospitalAspartate aminotransferase [Enzymatic activity/volume] in Serum or PlasmaOrdered By: Leola Smith on 25-93-2899IQP [Catalytic activity/Vol] Aspartate aminotransferase [Enzymatic activity/volume] in Serum or Mnhvns77-73 [facility] HospitalBasophils Auto (Bld) [#/Vol]Ordered By: Leola Smith on 49-48-7987Xrntewuau (Bld) [#/Vol]Automated basophil count0.0-0.2 [facility] HospitalBasophils/100 WBC Auto (Bld)Ordered By: Leola Smith on 11-58-4159Llgisuovy/100 WBC (Bld)Automated basophil %.Ohio[facility] Berger HospitalBilirubin.total [Mass/volume] in Serum or PlasmaOrdered By: Leola Smith on 67-70-0874Qzkiumode [Mass/Vol]Bilirubin.total [Mass/volume] in Serum or Plasma0.3-1.0[facility] HospitalCalcium [Mass/volume] in Serum or PlasmaOrdered By: Leola Smith on 19-82-5690Icysxbv [Mass/Vol] Calcium [Mass/volume] in Serum or PlasmaLow8.6-10.3FEast Liverpool City HospitalCarbon dioxide, total [Moles/volume] in Serum or PlasmaOrdered By: Leola Smith on 00-71-3754WG7 [Moles/Vol]Carbon dioxide, total [Moles/volume] in Serum or Zimvbv97.0-31.0[facility] HospitalChloride [Moles/volume] in Serum or PlasmaOrdered By: Leola Smith on 77-32-8308Nsvfwwbk [Moles/Vol] Chloride [Moles/volume] in Serum or VdtljsDdha92-313DwlclqddhOhiohealth Berger HospitalComplete Blood Count Auto Diffon 22-39-9830Xzsqefewh (Bld) [#/Vol]0.0 10*3/uLNormal0.0-0.2The [facility] Physician GroupComment on above:Result Comment: PERFORMED BY: [facility] [address] [place] [address] PATHOLOGIST GLOBE CHANGER MARQUITA BOLAÑOS M.D.Performed By: #### CMP, CBC #### [place] [address] USABasophils/100 WBC (Bld)0.5 %Normal.The [facility] Physician GroupComment on above:Performed By: #### CMP, CBC #### [place] [address] USAEosinophils (Bld) [#/Vol]0.1 10*3/uLNormal0.0-0.45The [facility] Physician GroupComment on above:Performed By: #### CMP, CBC #### [place] [address] USAEosinophils/100 WBC (Bld)1.2 %Normal.The [facility] Physician GroupComment on above:Performed By: #### CMP, CBC #### [place] [address] USAErythrocyte distribution width (RBC) [Ratio]17.3 %High 11.9-15.3The [facility] Physician GroupComment on above:Performed By: #### CMP, CBC #### [place] [address] USAHematocrit (Bld) [Volume fraction]31.1 %Low34.0-46.4The [facility] Physician GroupComment on above:Performed By: #### CMP, CBC #### [place] [address] USAHemoglobin (Bld) [Mass/Vol]10.4 g/dLLow11.8-15.4The [facility] Physician GroupComment on above:Performed By: #### CMP, CBC #### [place] [address] USALymphocytes (Bld) [#/Vol]2.1 10*3/uLNormal1.00-4.8The [facility] Physician GroupComment on above:Performed By: #### CMP, CBC #### [address] [place] [address] USALymphocytes/100 WBC (Bld)49.2 %Normal.The [facility] Physician GroupComment on above:Performed By: #### CMP, CBC #### [place] [address] USAH (RBC) [Entitic mass]26.7 dwQzsban35.7-34.3The [facility] Physician GroupComment on above:Performed By: #### CMP, CBC #### [place] [address] USAV (RBC) [Entitic vol]79.9 cDMbw23-573Lxv [facility] Physician GroupComment on above:Performed By: #### CMP, CBC #### [place] [address] USAMean Corpuscular HGB Conc33.4 g/nTSxljwm64.0-35.0The [facility] Physician GroupComment on above:Performed By: #### CMP, CBC #### [place] [address] USAMonocytes (Bld) [#/Vol]0.3 10*3/uLNormal0.0-0.8The [facility] Physician GroupComment on above:Performed By: #### CMP, CBC #### [place] [address] USAMonocytes/100 WBC (Bld)7.7 %Normal.The [facility] Physician GroupComment on above:Performed By: #### CMP, CBC #### [place] [address] USANeutrophils (Bld) [#/Vol]1.8 10*3/uLNormal1.8-7.7The [facility] Physician GroupComment on above:Performed By: #### CMP, CBC #### [place] [address] USANeutrophils/100 WBC (Bld)41.4 %Normal.The [facility] Physician GroupComment on above:Performed By: #### CMP, CBC #### [address] [place] [address] USANRBC%0.1 /100{WBC}Normal0-0.5The [facility] Comment on above:Performed By: #### CMP, CBC #### [facility] [address] [place] [address] USAPlatelet mean volume (Bld) [Entitic vol]9.2 fLNormal 6.3-10.7The [facility] Physician GroupComment on above:Performed By: #### CMP, CBC #### [facility] [address] [place] [address] USAPlatelets (Bld) [#/Vol]190 10*3/cHDpjizf273-046Yvf [facility] Physician GroupComment on above:Performed By: #### CMP, CBC #### [place] [address] USARBC (Bld) [#/Vol]3.89 10*6/uLNormal3.60-5.00The [facility] Physician GroupComment on above:Performed By: #### CMP, CBC #### [place] [address] USAWBC (Bld) [#/Vol]4.3 10*3/uLNormal3.8-11.6The [facility] Physician GroupComment on above:Performed By: #### CMP, CBC #### [place] [address] USAComprehensive Metabolic Panelon 45-44-4135Qpznxsb [Mass/Vol]3.3 g/dLLow3.5-5.7The [facility] Physician GroupComment on above: Performed By: #### CMP, CBC #### [place] [address] USAAlbumin/Globulin [Mass ratio]1.7 {ratio}NormalThe [facility] Physician GroupComment on above:Performed By: #### CMP, CBC #### [place] [address] USAALP [Catalytic activity/Vol]125 U/XOopg04-082Fek [facility] Physician GroupComment on above:Performed By: #### CMP, CBC #### [facility] [address] [place] [address] USAALT [Catalytic activity/Vol]191 U/LHigh7-52The [facility] Physician GroupComment on above:Performed By: #### CMP, CBC #### [facility] [address] [place] [address] USAAnion gap [Moles/Vol]6.7 mmol/LNormal6.0-15.0The [facility] Physician GroupComment on above:Performed By: #### CMP, CBC #### [facility] [address] [place] [address] USAAST [Catalytic activity/Vol]29 U/FZotryp78-40Osx [facility] Physician GroupComment on above:Performed By: #### CMP, CBC #### [facility] [address] [place] [address] USABilirubin [Mass/Vol]0.5 mg/dLNormal0.3-1.0The [facility] Physician GroupComment on above:Performed By: #### CMP, CBC #### [facility] [address] [place] [address] USACalcium [Mass/Vol]7.9 mg/dLLow8.6-10.3The [facility] Physician GroupComment on above:Performed By: #### CMP, CBC #### [facility] [address] [place] [address] USAChloride [Moles/Vol]110 mmol/JWqyn88-009Pbr [facility] Physician GroupComment on above:Performed By: #### CMP, CBC #### [facility] [address] [place] [address] USACO2 [Moles/Vol]26.6 mmol/WWyptik24.0-31.0The [facility] Physician GroupComment on above:Performed By: #### CMP, CBC #### [facility] [address] [place] [address] USACreatinine [Mass/Vol]0.58 mg/dLLow0.60-1.20The [facility] Physician GroupComment on above:Performed By: #### CMP, CBC #### [place] [address] USACreatinine Clr Calc Woaoasaw386.83NoNovant Health Kerners[facility] Center Physician GroupComment on above:Result Comment: PERFORMED BY: [place] [address] PATHOLOGIST GLOBE CHANGER MARQUITA BOLAÑOS M.D.Performed By: #### CMP, CBC #### [place] [address] USAGFR/1.73 sq M.predicted MDRD (S/P/Bld) [Vol rate/Area] mL/min/{1.73_m2}NormalThe [facility] Physician GroupComment on above:Performed By: #### CMP, CBC #### [place] [address] USAGlobulin (S) [Mass/Vol]2.0 g/dLCommunity Hospital Physician GroupComment on above:Performed By: #### CMP, CBC #### [place] [address] USAGlucose [Mass/Vol]104 mg/pCKstb84-349Hub [facility] Physician GroupComment on above:Result Comment: Random Glucose Reference Range is dependent on time and content of last meal. Glucose of more than 200 mg/dL in a nonstressed, ambulatory subject supports the diagnosis of Diabetes Mellitus. ADA recommended reference rangePerformed By: #### CMP, CBC #### [place] [address] USAPotassium [Moles/Vol]3.3 mmol/LLow3.5-5.1The [facility] Physician GroupComment on above:Performed By: #### CMP, CBC #### [place] [address] USAProtein [Mass/Vol]5.3 g/dLLow6.4-8.9The [facility] Physician GroupComment on above:Performed By: #### CMP, CBC #### [place] [address] USASodium [Moles/Vol]140 mmol/QMxarzn588-707Fqi [facility] Physician GroupComment on above:Performed By: #### CMP, CBC #### [facility] [address] [place] [address] USAUrea nitrogen [Mass/Vol]9 mg/dLNormale [facility] Physician GroupComment on above:Performed By: #### CMP, CBC #### [facility] [address] [place] [address] USACreatine Kinaseon 88-22-6269EB [Catalytic activity/Vol]51 U/PIpsxrl94-641Hku [facility] Physician GroupComment on above:Result Comment: PERFORMED BY: [place] [address] PATHOLOGIST GLOBE CHANGER MARQUITA BOLAÑOS M.D.Performed By: #### CK #### [facility] [address] [place] [address] USACreatine kinase [Enzymatic activity/volume] in Serum or PlasmaOrdered By: Leola Smith on 79-67-5654HH [Catalytic activity/Vol]Creatine kinase [Enzymatic activity/volume] in Serum or Dbcpee46-872CdeusutflOhiohealth Berger HospitalCreatinine [Mass/volume] in Serum or PlasmaOrdered By: Leola Smith on 53-32-7017Yqdfyqysdz [Mass/Vol]Creatinine [Mass/volume] in Serum or PlasmaLow0.60-1.20Ohio[facility] Berger HospitalECG 12 lead ECGon 10-17-2024 ECG 12 lead ECGADAMS [facility] [place] [address] [place] [address] Electrocardiograph Report Signed Patient: Noe Duran MR#: [id number] : 1995 Acct:[id number] Age/Sex: 29 / F ADM Date: 10/15/24 Loc: Room: [address] [place] [address] Type: ADM IN Attending Dr: Leola Smith [...] rhythm Normal ECG Confirmed by Lina Meredith ([id number]) on 10/17/2024 1:51:09 PM Referred By: Electronically Signed By: Lina Meredith Transcribed By: MUS Signed By Lina Meredith MD 5 1351[facility] Physician GroupEosinophils Auto (Bld) [#/Vol]Ordered By: eLola Smith on 74-29-0596Waqfupfinrq (Bld) [#/Vol]Automated eosinophil count0.0-0.45Ohio[facility] Berger HospitalEosinophils/100 WBC Auto (Bld) Ordered By: Leola Smith on 87-35-1742Mswjduvduxx/100 WBC (Bld)Automated eosinophil %.[facility] Berger HospitalErythrocyte distribution width Auto (RBC) [Ratio]Ordered By: Leola Smith on 79-22-9373Eioyjbkvsgk distribution width (RBC) [Ratio]Erythrocyte distribution width [Ratio] by Automated wnxwdIoud75.9-15.3FEast Liverpool City HospitalGlobulin Calc (S) [Mass/Vol]Ordered By: Leola Smith on 86-89-2116Wmpsmxta (S) [Mass/Vol]Serum globulin measurement by calculation (mass/volume)[facility] HospitalGlucose [Mass/volume] in Serum or PlasmaOrdered By: Leola Smith on 16-67-1511Wgdxkla [Mass/Vol]Glucose [Mass/volume] in Serum or UvsgyqTrvn22-143 [facility] HospitalComment on above:ADA recommended reference rangeRandom Glucose Reference Range is dependent on time and content of last meal. Glucose of more than 200 mg/dL in a nonstressed, ambulatory subject supports the diagnosisof Diabetes Mellitus.HIV 1/O/2 Antigen/Antibodyon 09-93-5601MCH Screen 4th GenerationNon-ReactiveNormalNon ReactiveThe [facility] Physician GroupComment on above:Result Comment: HIV-1/HIV-2 antibodies and HIV-1 p24 antigen were NOT detected. There is no laboratory evidence of HIV infection. HIV Negative Performed at: [address], [place] [id number] Wash Worker: Justice Flor PhD, Phone: [phone] By: #### RPR W RFX, HIV SCREEN #### [facility] ,HIV antibody and antigen panelOrdered By: Leola Smith on 23-02-6210SPB 1+2 Ab+HIV1 p24 Ag IA QlHIV 1 and HIV-2 antibody assay with HIV-1 p24 antigen detectionNon ReactiveOhiohealth Berger HospitalComment on above: HIV-1/HIV-2 antibodies and HIV-1 p24 antigen were NOTdetected. There is no laboratory evidence of HIV infection.HIV NegativePerformed at: [facility] [address] [id number] Director: Justice Flor PhD, Phone: [phone] Auto (Bld) [Volume fraction]Ordered By: Leola Smith on 99-50-3810Aqyuvdcvxa (Bld) [Volume fraction]Hematocrit [Volume Fraction] of Blood by Automated iefmmUgx09.0-46.4FEast Liverpool City HospitalHemoglobin [Mass/volume] in BloodOrdered By: Leola Smith on 10-17-2024 Hemoglobin (Bld) [Mass/Vol]Hemoglobin [Mass/volume] in JokagPcp43.8-15.4 [facility] HospitalLeukocytes [#/volume] corrected for nucleated erythrocytes in Blood by Automated counOrdered By: Leola Smith on 10-17-2024 WBC corrected for nucl RBC Auto (Bld) [#/Vol]Leukocytes [#/volume] corrected for nucleated erythrocytes in Blood by Automated coun3.8-11.6FEast Liverpool City HospitalLymphocytes Auto (Bld) [#/Vol]Ordered By: Leola Smith on 70-31-6895Vltzesnzwjr (Bld) [#/Vol]Lymphocytes [#/volume] in Blood by Automated count1.00-4.8[facility] Berger HospitalLymphocytes/100 WBC Auto (Bld) Ordered By: Leola Smith on 75-22-3314Ojxhnzuubfl/100 WBC (Bld)Lymphocytes/100 leukocytes in Blood by Automated count.[facility] Berger HospitalMCH Auto (RBC) [Entitic mass]Ordered By: Leola Smith on 24-01-1903FEJ (RBC) [Entitic mass]MCH [Entitic mass] by Automated count24.7-34.3FEast Liverpool City HospitalMCHC Auto (RBC) [Mass/Vol]Ordered By: Leola Smith on 28-19-6584DIXP (RBC) [Mass/Vol]MCHC [Mass/volume] by Automated count32.0-35.0Ohio[facility] HospitalMCV Auto (RBC) [Entitic vol]Ordered By: Leola Smith on 93-71-3423VCO (RBC) [Entitic vol]MCV [Entitic volume] by Automated countLow 80-100Ohio[facility] Berger HospitalMonocytes Auto (Bld) [#/Vol]Ordered By: Leola Smith on 10-52-1582Qjzdchavx (Bld) [#/Vol]Automated blood monocyte count 0.0-0.8[facility] Berger HospitalMonocytes/100 WBC Auto (Bld)Ordered By: Leola Smith on 24-73-3097Mukcqycro/100 WBC (Bld)Automated monocyte %.[facility] Berger HospitalNeutrophils Auto (Bld) [#/Vol]Ordered By: Leola Smith on 72-76-9168Ywsiyaqecav (Bld) [#/Vol]Neutrophils [#/volume] in Blood by Automated count1.8-7.7FEast Liverpool City HospitalNeutrophils/100 WBC Auto (Bld)Ordered By: Leola Smith on 62-61-9454Rgpatsaplpa/100 WBC (Bld)Automated neutrophil %.[facility] HospitalNo Panel InformationOrdered By: Leola Smith on 22-77-3725Kvyp-Nuclear Antibody Comment 2Comment.[facility] Berger HospitalComment on above:Pattern Potential Disease Association Homo geneous Systemic Lupus Erythematosus, Drug Induced Systemic Lupus Erythematosus, Chronic Autoimmunehepatitis, Juvenile Idiopathic Arthritis Speckled Sjogren Syndrome, Systemic Lupus Erythematosus, Subacute Cutaneous Lupus, Lupus, Congenital Heart Block, Mixed Connective Tissue Disease, Scleroderma-diffuse, Scleroderma- Autoimmune Myositis Overlap Syndrome, Systemic Lupus Fevuvetyxssve-Fvvefesrgsu-Vnsntwkckx Myositis Overlap Syndrome, Systemic Autoimmune Rheumatic Disease, [...] Cytopenias, Linear Scleroderma, Antiphospholipid Syndrome Performed at: [facility] [id number] Director: Justice Flor PhD, Phone: [phone] GFR (CKD-EPI)> 60.0 mL/MinOhiohealth Berger HospitalPharmacy Creatinine Clearance (Ygez012.83Ohio[facility] Berger HospitalNucleated erythrocytes [Presence] in Blood by Automated countOrdered By: Leola Smith on 28-21-9018Mshnpvdgx RBC Auto Ql (Bld)Nucleated erythrocytes [Presence] in Blood by Automated count0-0.5FEast Liverpool City HospitalPlatelet mean volume Auto (Bld) [Entitic vol]Ordered By: Leola Smith on 55-51-7236Yymmfyqu mean volume (Bld) [Entitic vol]Platelet mean volume [Entitic volume] in Blood by Automated count6.3-10.7FEast Liverpool City HospitalPlatelets Auto (Bld) [#/Vol]Ordered By: Leola Smith on 10-03-4080Nrplarhhx (Bld) [#/Vol]Platelets [#/volume] in Blood by Automated rmmeo631-483OjfyseoclOhiohealth Berger HospitalPotassium [Moles/volume] in Serum or PlasmaOrdered By: Leola Smith on 13-30-4664Udwqskohc [Moles/Vol]Potassium [Moles/volume] in Serum or PlasmaLow3.5-5.1FEast [facility] Protein [Mass/volume] in Serum or PlasmaOrdered By: Leola Smith on 10-17-2024 Protein [Mass/Vol]Protein [Mass/volume] in Serum or PlasmaLow6.4-8.9Ohio[facility] Berger HospitalRBC Auto (Bld) [#/Vol]Ordered By: Leola Smith on 07-05-8829JFA (Bld) [#/Vol]Erythrocytes [#/volume] in Blood by Automated count 3.60-5.00Ohio[facility] Berger HospitalRPR w/rfx to Quant TP Abson 10-17-2024 RPR, Rfx Quant RPRNon-ReactiveNormalNon ReactiveThe [facility]ician Group Comment on above:Result Comment: Performed at: - [facility] [address] [place], [place] [id number] Wash Worker: Justice Flor PhD, Phone: [phone] PERFORMED BY: [facility] [place] [place] [address] PATHOLOGIST GLOBE CHANGER MARQUITA BOLAÑOS M.D.Performed By: #### RPR W RFX, HIV SCREEN #### [facility] ,Serum RPR testOrdered By: Leola Smith on 39-37-5261Lhnfck Ab RPR Ql (S)Reagin Ab [Presence] in Serum by RPRNon ReactiveOhiohealth Berger Hospital Comment on above:Performed at: - [facility] [id number] Director: Justice Flor PhD, Phone: [phone] nuclear antibody titerOrdered By: Leola Smith on 19-89-0588Wmgwxyf Ab (S) [Titer]Serum nuclear antibody titerAbnormal.[facility] Berger HospitalComment on above:Negative <1:80 Borderline 1:80 Positive >1:80Serum or plasma albumin/globulin mass ratioOrdered By: Leola Smith on 10-17-2024 Albumin/Globulin [Mass ratio]Serum or plasma albumin/globulin mass ratio Wilson Healtherum or plasma anion gap determinationOrdered By: Leola Smith on 52-52-4236Dwdyv gap [Moles/Vol]Serum or plasma anion gap determination6.0-15.0Wilson Healtherum speckled pattern antinuclear antibody (LIZBETH) titerOrdered By: Leola Smith on 25-82-1083Admsvpyb nuclear Ab pattern (S) [Titer]Serum speckled pattern antinuclear antibody (LIZBETH) titerHigh.[facility] HospitalComment on above:Dense Fine Speckled pattern is noted. This pattern suggeststhe presence of DFS70 antibody which hasa low prevalencein systemic autoimmune rheumatic diseases.ICAP nomenclature: AC-2,4,5,29Sodium [Moles/volume] in Serum or PlasmaOrdered By: Leola Smith on 48-70-4861Qnwxnw [Moles/Vol]Sodium [Moles/volume] in Serum or Kleoeb169-637 [facility] HospitalUrea nitrogen [Mass/volume] in Serum or Plasma Ordered By: Leola Smith on 58-15-0650Qdoo nitrogen [Mass/Vol]Urea nitrogen [Mass/volume] in Serum or Plasma7-25Ohio[facility] Berger HospitalWBC Auto (Bld) [#/Vol]Ordered By: Leola Smith on 14-61-2939MBJ (Bld) [#/Vol]Leukocytes [#/volume] in Blood by Automated count3.8-11.6FEast [facility] Hospital Ammoniaon 81-85-1974Xzrwxyt (P) [Moles/Vol]27 umol/WDppzth92-46Icg [facility] Physician GroupComment on above:Result Comment: PERFORMED BY: [address] [place] [address] PATHOLOGIST GLOBE CHANGER MARQUITA BOLAÑOS M.D.Performed By: #### AMM #### [facility] [address] [place], [place] [address] USAAmmonia [Moles/volume] in PlasmaOrdered By: Elfego Muniz on 03-26-7024Nhtcqrr (P) [Moles/Vol]Ammonia [Moles/volume] in Plasma 1135Ohiohealth Berger HospitalAnisocytosis LM Ql (Bld)Ordered By: Elfego Muniz on 46-73-1590Octmkhjyspwp Ql (Bld)Anisocytosis [Presence] in Blood by Light microscopyOhiohealth Berger Hospital Choriogonadotropin.beta subunit [Units/volume] in Serum or PlasmaOrdered By: Leola Smith on 41-11-0904EFT.beta subunit QnChoriogonadotropin.beta subunit [Units/volume] in Serum or PlasmaOhiohealth Berger HospitalComprehensive Metabolic Panelon 73-34-9612Xicrgbf [Mass/Vol]3.7 g/dLNormal3.5-5.7The [facility] Physician GroupComment on above:Performed By: #### AMM #### [facility] [address] [place] [address] USAAlbumin/Globulin [Mass ratio]1.8 {ratio}NormalThe [facility] Physician GroupComment on above:Performed By: #### AMM #### [place] [address] USAALP [Catalytic activity/Vol]133 U/FXqmj80-360Jjy [facility] Physician GroupComment on above:Performed By: #### AMM #### [facility] [address] [place] [address] USAALT [Catalytic activity/Vol]278 U/LHigh7-52The [facility] Physician GroupComment on above:Performed By: #### AMM #### [place] [address] USAAnion gap [Moles/Vol]10.9 mmol/LNormal6.0-15.0The [facility] Physician GroupComment on above:Performed By: #### AMM #### [place] [address] USAAST [Catalytic activity/Vol]54 U/SFibp44-41Pkp [facility] Physician GroupComment on above:Performed By: #### AMM #### [place] [address] USABilirubin [Mass/Vol]0.8 mg/dLNormal0.3-1.0The [facility] Physician GroupComment on above:Performed By: #### AMM #### [place] [address] USACalcium [Mass/Vol]8.1 mg/dLLow8.6-10.3The [facility] Physician GroupComment on above:Performed By: #### AMM #### [facility] [address] [place] [address] USAChloride [Moles/Vol]110 mmol/SCbjq53-825Eiz [facility] Physician GroupComment on above:Performed By: #### AMM #### [facility] [address] [place] [address] USACO2 [Moles/Vol]23.7 mmol/XQswzsx29.0-31.0The [facility] Physician GroupComment on above:Performed By: #### AMM #### [facility] [address] [place] [address] USACreatinine [Mass/Vol]0.44 mg/dLLow0.60-1.20The [facility] Physician GroupComment on above:Performed By: #### AMM #### [facility] [address] [place] [address] USACreatinine Clr Calc Ybxykhgv657.10NormalThe [facility] Physician GroupComment on above:Performed By: #### AMM #### [facility] [address] [place] [address] USAGFR/1.73 sq M.predicted MDRD (S/P/Bld) [Vol rate/Area] mL/min/{1.73_m2}NormalThe [facility] Physician GroupComment on above:Performed By: #### AMM #### [place] [address] USAGlobulin (S) [Mass/Vol]2.1 g/dLNormOrlando Health St. Cloud Hospital Physician GroupComment on above:Performed By: #### AMM #### [place] [address] USAGlucose [Mass/Vol]86 mg/sGZnhpqb80-156Vsh [facility] Physician GroupComment on above:Result Comment: Random Glucose Reference Range is dependent on time and content of last meal. Glucose of more than 200 mg/dL in a nonstressed, ambulatory subject supports the diagnosis of Diabetes Mellitus. ADA recommended reference rangePerformed By: #### AMM #### [place] [address] USAPotassium [Moles/Vol]3.6 mmol/LNormal3.5-5.1The [facility] Physician GroupComment on above:Performed By: #### AMM #### [place] [address] USAProtein [Mass/Vol]5.8 g/dLLow6.4-8.9The [facility] Physician GroupComment on above:Performed By: #### AMM #### [place] [address] USASodium [Moles/Vol]141 mmol/MPzbisa942-060Jdj [facility] Physician GroupComment on above:Performed By: #### AMM #### [facility] [address] [place] [address] USAUrea nitrogen [Mass/Vol]10 mg/dLNormal7-25The [facility] Physician GroupComment on above:Performed By: #### AMM #### [facility] [address] [place] [id number] USADiagnostic impression interpretation by molecular genetics method narrativeOrdered By: Elfego Muniz on 74-97-1314Blugkgccsc impression Molgen Ignacio (Unsp spec) [Interp]Diagnostic impression [Interpretation] in Specimen Narrative.Ohiohealth Berger HospitalComment on above: Positive HCV antibody screen with the presence of HCV RNAis consistent with active infection.Performed at: - [facility] [id number] Director: Justice Flor PhD, Phone: [phone] at: [facility] Lab[address] [id number]: Alejandra Palomino MD, Phone: [phone] Note-Nursingon 36-45-0904ES Note-NursingED Note-Nursing pt has not urinated since arrival. pt refused straight cath at this time. pt's mother states pt [facility]rythrocyte morphology finding [Identifier] in BloodOrdered By: Elfego Muniz on 11-58-4889FMH morphology finding Nom (Bld)RBC morphologyOhiohealth Berger HospitalFerritinon 53-36-8027Ijuwzmin [Mass/Vol]23.5 ng/mLNormal 11.0-306.8The [facility] Physician GroupComment on above:Performed By: #### AMM #### [facility] [address] [place] [id number] USAFerritin [Mass/volume] in Serum or PlasmaOrdered By: Leola Smith on 48-18-0487Fncldyzz [Mass/Vol]Ferritin [Mass/volume] in Serum or Kubeed09.0-306.8Ohiohealth Berger HospitalHCG,Qualitative Serumon 44-83-0109OCW,Qualitative SerumNegativeNormalThe [facility] Comment on above:Result Comment: PERFORMED BY: [place] [address] PATHOLOGIST GLOBE CHANGER MARQUITA BOLAÑOS M.D.Performed By: #### AMM #### [place] [address] USAHepatitis A virus IgM antibody assayOrdered By: Elfego Muniz on 14-46-2266Hwbxtebep A IgM AntibodyNegativeNegativeOhiohealth Berger HospitalComment on above:A negative anti-HAV IgM result suggests no recent orcurrent HAV infection.Hepatitis Acute Panelon 63-38-4110SUoTg Screen NegativeNormalNegativeThe [facility] Physician Trace Regional HospitalComment on above:Performed By: #### URDS #### [place] [address] USAHCV Gfn839.903Normal.The [facility] Physician GroupComment on above:Result Comment: Result Units: log10 IU/mLPerformed By: #### URDS #### [place] [address] USAHepatitis A Antibody IgMNegativeNormalNegativeThe [facility] Physician Trace Regional HospitalComment on above:Result Comment: A negative anti-HAV IgM result suggests no recent or current HAV infection.Performed By: #### URDS #### [place] [address] USAHepatitis B Core Antibody IgMNegativeNormalNegativeOrlando Health Arnold [facility] Physician Trace Regional HospitalComment on above:Performed By: #### URDS #### [place] [address] USAHepatitis C Kazbyyilwhsw660 [IU]/mLNormal.The [facility] Physician GroupComment on above:Performed By: #### URDS #### [place] [address] USAHepatitis C Virus AntibodyReactiveCritically abnormalNon ReactiveThe [facility] Physician GroupComment on above:Performed By: #### URDS #### [place] [address] USAInterpretationCommentNormal.The [facility] Comment on above:Result Comment: Positive HCV antibody screen with the presence of HCV RNA is consistent with active infection. Performed at: - [facility] [address] [id number] Wash Worker: Justice Flor PhD, Phone: [phone] Performed at: - [facility] [address] [id number] Wash Worker: Alejandra Palomino MD, Phone: [phone] PERFORMED BY: [place] [address] PATHOLOGIST GLOBE CHANGER MARQUITA BOLAÑOS M.D.Performed By: #### URDS #### [place] [address] USATest Information:CommentNormal.The [facility] Physician GroupComment on above:Result Comment: The quantitative range of this assay is 15 IU/mL to 100 million IU/mL.Performed By: #### URDS #### [place] [address] USAHepatitis B virus core IgM antibody assayOrdered By: Elfego Muniz on 77-79-6050Oajyqfrly B Core IgM AntibodyNegativeNegative Ohiohealth Berger HospitalHepatitis C virus IgG Ab [Presence] in Serum or Plasma by ImmunoassayOrdered By: Elfego Muniz on 91-52-3216KEK IgG IA Ql Hepatitis C virus IgG Ab [Presence] in Serum or Plasma by ImmunoassayAbnormalNon ReactiveOhiohealth Berger HospitalINR in Platelet poor plasma by Coagulation assayOrdered By: Elfego Muniz on 60-28-3602CSA Coag (PPP) [Relative time]INR in Platelet poor plasma by Coagulation assayOhiohealth Berger HospitalComment on above:INR Therapeutic Range A) Pre- [...] Serum or PlasmaOrdered By: Leola Smith on 83-65-9092Bxoe [Mass/Vol]Iron [Mass/volume] in Serum or JaskrsBqd62-793DfprqvektOhiohealth Berger HospitalIron and TIBC Profileon 10-16-2024% Iron Saturation8.9 %Nvx41-60Nkh [facility] Comment on above:Performed By: #### AMM #### [facility] [address] [place] [address] USAIron [Mass/Vol]35 ug/dUSid58-160Yzo [facility] Physician GroupComment on above:Performed By: #### AMM #### [facility] [address] [place] [address] USATotal Iron Binding Ggexalpc963 ug/pLMacvsy713-491Dld [facility] Physician GroupComment on above:Performed By: #### AMM #### [facility] [address] [place] [address] USATransferrin [Mass/Vol]282 mg/cGFfduhm623-463Uyn [facility] Physician GroupComment on above:Performed By: #### AMM #### [facility] [address] [place] [address] USALactate [Moles/volume] in Serum or PlasmaOrdered By: Elfego Muniz on 45-81-9143Qnrbpvh [Moles/Vol]Lactate [Moles/volume] in Serum or Plasma0.5-1.9Ohiohealth Berger HospitalComment on above:Lactic Acid reference range has been updated to 0.5 1.9 mmol/L and the critical range of 2.0 or greater.Lactic Acidon 79-02-2691Fquwbrm [Moles/Vol]0.5 mmol/LNormal 0.5-1.9The [facility] Physician GroupComment on above:Result Comment: Lactic Acid reference range has been updated to 0.5 ? 1.9 mmol/L and the critical range of 2.0 or greater. PERFORMED BY: [place] [address] PATHOLOGIST GLOBE CHANGER MARQUITA BOLAÑOS M.D.Performed By: #### LACTIC #### [place] [id number] USAMR head/brain wo conon 78-45-3808KH head/brain wo con [facility] [place] [address] [place] [address] MRI Report Signed Patient: Noe Duran MR#: [id number] : 1995 Acct:[id number] Age/Sex: 29 / F ADM Date: 10/15/24 Loc: Room: [address] [place] [address] Type: ADM IN Attending Dr: Leola Smith [...] Beto Little M.D.10/16/2024 9:38 PM Dictation Location: [place] [address] Transcribed By: [facility] 10/16/242137 Dictated By: Beto Little DO 10/16/242127 Signed By: 10/16/242137NoNovant Health K[facility] Physician GroupMagnesiumon 48-22-9344Tjndoldzw [Mass/Vol]2.1 mg/dLNormal1.9-2.7The [facility] Physician GroupComment on above: Result Comment: PERFORMED BY: [place] [address] PATHOLOGIST GLOBE CHANGER MARQUITA BOLAÑOS M.D.Performed By: #### AMM #### [place] [address] USAMagnesium [Mass/volume] in Serum or PlasmaOrdered By: Elfego Muniz on 55-22-5863Ogscdyila [Mass/Vol]Magnesium [Mass/volume] in Serum or Plasma1.9-2.7FEast Liverpool City HospitalMagnetic resonance imaging reportOrdered By: Beto Little on 03-19-3818Bphmd reportFIRGEORGETOWN BEHAVIORAL HOSPITAL [place] [address] [place] [address] MRI Report Signed Patient: Noe Duran MR#: [id number] : 1995 Acct:[id number] Age/Sex: 29 / F ADM Date: 5 Loc: Room: [address] [place] [address] Type: ADM IN Attending Dr: Leola Smith [...] Beto Little M.D.10/16/2024 9:38 PM Dictation Location: [place] [address] Transcribed By: [facility] 10/16/242137 Dictated By: Beto Little DO 10/16/242127 Signed By: 10/16/242137 [facility] Berger HospitalMicrocytes LM Ql (Bld)Ordered By: Elfego Muniz on 46-86-5396Qpdvefaoiq Ql (Bld)Microcytes [Presence] in Blood by Light microscopyOhiohealth Berger HospitalNo Panel InformationOrdered By: Elfego Muniz on 39-84-9954Uvznjcsye C RNA Qnt (PCR) Test InfoComment. [facility] Berger HospitalComment on above:The quantitative range of this assay is 15 IU/mL to 100million IU/mL.Partial Thromboplastin Timeon 10-16-2024 aPTT Coag (d) [Time]31.2 kOimjhx60.1-36.5The [facility] Physician GroupComment on above:Result Comment: A hematocrit value greater than 55% may lead to inaccurate results in coagulation testing. Patients having hematocrit values >55% require a special collection tube for coagulation studies. Please contact the laboratory at [phone] for redraw instructions. PERFORMED BY: [place] [id number] PATHOLOGIST GLOBE CHANGER MARQUITA BOLAÑOS M.D.Performed By: #### AMM #### [place] [address] USAPath. Reviewon 39-11-1747Qovo ReviewAtypical lymphocytosis and monocytosis. Clinical correlation and further follow-up is recommended for etiology as clinically indicated.Invalid Interpretation [facility] Agnes HospitalComment on above:Performed By: #### [id number] #### [facility] [address] [place] [id number] [Mass/volume] in Serum or PlasmaOrdered By: Leola Smith on 11-34-2413Dgrfudpys [Mass/Vol]Phosphate [Mass/volume] in Serum or Plasma2.5-4.5FEast Liverpool City HospitalPhosphoruson 36-99-9595Ncnaulhtl [Mass/Vol]3.5 mg/dLNormal2.5-4.5The [facility] Physician GroupComment on above: Performed By: #### AMM #### [facility] [address] [place] [address] USAPlatelet adequacy [Presence] in Blood by Light microscopy Ordered By: Elfego Muniz on 23-38-6555Pupeulcsf LM Ql (Bld)Platelet adequacy [Presence] in Blood by Light microscopySt. Mary's Medical Center, Ironton CampusPlatelet morphology finding [Identifier] in BloodOrdered By: Elfego Muniz on 64-66-6989Ihxqqzwn morphology finding Nom (Bld)Platelet morphology finding [Identifier] in BloodNoDetwiler Memorial HospitalProthrombin Time INRon 06-07-5721HCO Coag (PPP) [Relative time]0.9 {INR}NormalThe [facility] Physician GroupComment on above:Result Comment: INR [...] 3 - 4.5Performed By: #### AMM #### [facility] [address] [place] [address] USAPT Coag (PPP) [Time]10.9 sNormal9.0-12.9The [facility] Physician GroupComment on above:Result Comment: A hematocrit value greater than 55% may lead to inaccurate results in coagulation testing. Patients having hematocrit values >55% require a special collection tube for coagulation studies. Please contact the laboratory at [phone] for redraw instructions.Performed By: #### AMM #### [facility] [address] [place] [address] USAProthrombin time (PT)Ordered By: Elfego Muniz on 87-17-1637FS Coag (PPP) [Time]Prothrombin time (PT)9.0-12.9Ohio[facility] Berger HospitalComment on above:A hematocrit value greater than 55% may lead to inaccurate results in coagulation testing. Patientshaving hematocrit values >55% require a special collection tube for coagulation studies. Please contact the laboratory at [phone] for redraw instructions.Scan and CBCon 10-16-2024 Anisocytosis Ql (Bld)ModerateNormalThe [facility] Physician GroupComment on above:Performed By: #### AMM #### [place] [address] USABasophils (Bld) [#/Vol]0.0 10*3/uLNormal0.0-0.2The [facility] Physician GroupComment on above:Performed By: #### AMM #### [place] [address] USABasophils/100 WBC (Bld)0.4 %Normal.The [facility] Physician GroupComment on above:Performed By: #### AMM #### [place] [address] USAEosinophils (Bld) [#/Vol]0.0 10*3/uLNormal0.0-0.45The [facility] Physician GroupComment on above:Performed By: #### AMM #### [place] [address] USAEosinophils/100 WBC (Bld)0.1 %Normal.The [facility] Physician GroupComment on above:Performed By: #### AMM #### [place] [address] USAErythrocyte distribution width (RBC) [Ratio]17.2 %High 11.9-15.3The [facility] Physician GroupComment on above:Performed By: #### AMM #### [place] [address] USAHematocrit (Bld) [Volume fraction]30.1 %Low34.0-46.4The [facility] Physician GroupComment on above:Performed By: #### AMM #### [address] [place] [address] USAHemoglobin (Bld) [Mass/Vol]9.9 g/dLLow11.8-15.4The [facility] Physician GroupComment on above:Performed By: #### AMM #### [place] [address] USALymphocytes (Bld) [#/Vol]3.4 10*3/uLNormal1.00-4.8The [facility] Physician GroupComment on above:Performed By: #### AMM #### [place] [address] USALymphocytes/100 WBC (Bld)57.6 %Normal.The [facility] Physician GroupComment on above:Performed By: #### AMM #### [place] [address] USAMCH (RBC) [Entitic mass]26.0 rlYsjmsg10.7-34.3The [facility] Physician GroupComment on above:Performed By: #### AMM #### [place] [address] USAMCV (RBC) [Entitic vol]79.2 uZGch89-056Gxd [facility] Physician GroupComment on above:Performed By: #### AMM #### [place] [address] USAMean Corpuscular HGB Conc32.9 g/vQYosugs98.0-35.0The [facility] Physician GroupComment on above:Performed By: #### AMM #### [place] [address] USAMicrocytosisSlightNormalThe [facility] Comment on above:Performed By: #### AMM #### [place] [address] USAMonocytes (Bld) [#/Vol]0.3 10*3/uLNormal0.0-0.8The [facility] Physician GroupComment on above:Performed By: #### AMM #### [place] [address] USAMonocytes/100 WBC (Bld)5.2 %Normal.The [facility] Physician GroupComment on above:Performed By: #### AMM #### [place] [address] USANeutrophils (Bld) [#/Vol]2.1 10*3/uLNormal1.8-7.7The [facility] Physician GroupComment on above:Performed By: #### AMM #### [place] [address] USANeutrophils/100 WBC (Bld)36.7 %Normal.The [facility] Physician GroupComment on above:Performed By: #### AMM #### [place] [address] USANRBC%0.2 /100{WBC}Normal0-0.5The [facility] Comment on above:Performed By: #### AMM #### [place] [address] USAPlatelet EstimateNormalNormalNormOrlando Health St. Cloud Hospital Physician GroupComment on above:Performed By: #### AMM #### [place] [address] USAPlatelet mean volume (Bld) [Entitic vol]9.0 fLNormal 6.3-10.7The [facility] Physician GroupComment on above:Performed By: #### AMM #### [place] [address] USAPlatelet MorphologyNormalNormalNormOrlando Health St. Cloud Hospital Physician GroupComment on above:Result Comment: PERFORMED BY: [place] [address] PATHOLOGIST GLOBE CHANGER MARQUITA BOLAÑOS M.D.Performed By: #### AMM #### [place] [address] USAPlatelets (Bld) [#/Vol]172 10*3/bDJzupix219-799Ikf [facility] Physician GroupComment on above:Performed By: #### AMM #### [facility] [address] [place] [address] USARBC (Bld) [#/Vol]3.80 10*6/uLNormal3.60-5.00The [facility] Physician GroupComment on above:Performed By: #### AMM #### [facility] [address] [place] [address] USAWBC (Bld) [#/Vol]5.8 10*3/uLNormal3.8-11.6The [facility] Physician GroupComment on above:Performed By: #### AMM #### [facility] [address] [place] [id number] USASerum or plasma hepatitis B virus surface antigen detection by immunoassayOrdered By: Elfego Muniz on 62-27-2238MWA surface Ag IA QlHepatitis B virus surface Ag [Presence] in Serum or Plasma by ImmunoassayNegativeWilson Healtherum or plasma hepatitis C virus RNA viral load by probe and target amplification meOrdered By: Elfego Muniz on 60-37-3840RNC RNA ELMO+probe [Log units/Vol]Hepatitis C virus RNA [log units/volume] (viral load) in Serum or Plasma by ELMO with.Ohiohealth Berger HospitalComment on above:Result Units: log10 IU/mLSerum or plasma iron binding capacity measurement (mass/volume)Ordered By: Leola Smith on 23-94-5564Kmaa binding capacity [Mass/Vol]Iron binding capacity [Mass/volume] in Serum or Pmpeds267-558RtqyejehwWilson Healtherum or plasma iron saturation measurement (mass fraction)Ordered By: Leola Smith on 10-16-2024 Iron saturation [Mass fraction]Iron saturation [Mass Fraction] in Serum or FrxchlXqu04-08BwplrsnecOhiohealth Berger HospitalTransferrin [Mass/volume] in Serum or PlasmaOrdered By: Leola Smith on 26-60-5376Aezlvvpsukh [Mass/Vol] Transferrin [Mass/volume] in Serum or Ypyesi693-079WafplukqcOhiohealth Berger HospitalaPTT in Platelet poor plasma by Coagulation assayOrdered By: Elfego Muniz on 67-68-4530sZYG Coag (PPP) [Time]Activated partial thromboplastin time (aPTT) in platelet poor plasma by coagulation a25.1-36.5FEast Liverpool City HospitalComment on above:A hematocrit value greater than 55% may lead to inaccurate results in coagulation testing. Patientshaving hematocrit values >55% require a special collection tube for coagulation studies. Please contact the laboratory at [phone] for redraw instructions.ABO/Rhon 89-22-7250CZT/Rh PositiveInvalid Interpretation [facility] Cross HospitalComment on above: Performed By: #### [id number] #### [facility] [address] [place], [place] [address]TDW/Rh History Checkon 88-48-5750KLR/Rh History CheckType verified by second sNormalUniversity Hospitals Conneaut Medical CenterComment on above:Performed By: #### [id number] #### [facility] [address] [place], [place] [address]QTN/Rh Retypeon 73-52-0251ZHK/Rh Retype InterpPositiveInvalid Interpretation [facility] HospitalComment on above:Performed By: #### [id number] #### [facility] [address] [place], [place] [address]JBBOqi 53-73-4013CVZX Gel InterpNegativeNormalUniversity Hospitals Conneaut Medical CenterComment on above:Performed By: #### [id number] #### [facility] [address] [place], [place] [address]Qhodvxxebc Lvlon 28-94-5243Ryjsurjyszg Lvl<.1Low15.0-30.0[facility] Medical CenterComment on above:Performed By: #### [id number] #### [facility] [address] [place], [place] [address]Mgcxyhrwlcs Screen Ql (U)Ordered By: Elfego Muniz on 07-20-3604Tzjapfoefjma Ql (U)Amphetamines screenHighNegativeOhiohealth Berger HospitalAppearance of UrineOrdered By: Elfego Muniz on 10-15-2024 Appearance (U)Urine appearanceCleAvita Health SystemB hCG Qualon 56-29-2338Fnrf HCG ( test) QlNegativeNormalUniversity Hospitals Conne[facility] Center Comment on above:Performed By: #### [id number] #### [facility] [address] [place], [place] [address]OQTRC BANKOrdered By: Yeny Nicolas on 01-64-1767SJG/Rh Retype InterpPositiveInvalid Interpretation CodeINTEGRIS BAPTIST [facility] [place] BB SubsectionBLOOD BANK Ordered By: Marta Luna on 35-86-0954NMJ/Rh InterpPositiveInvalid Interpretation CodeINTEGRIS BAPTIST [facility] [place] BB SubsectionABSC Gel InterpNegative (10/15/24 1:35 PM)NormalINTEGRIS BAPTIST MEDICAL [facility] – [place] BB SubsectionBMPon 65-39-7437Xssrn gap [Moles/Vol]15 mmol/LNormal6-16[facility] Medical CenterComment on above:Performed By: #### [id number] #### [facility] [address] [place], [place] [address]Rmaikey [Mass/Vol]8.8 mg/dLLow8.9-11.1FWhite HospitalComment on above:Performed By: #### [id number] #### [facility] [address] [place], [place] [address]Llxkckev [Moles/Vol]105 mmol/VObtyyp317-278VwiwyiUniversity Hospitals Conneaut Medical CenterComment on above:Performed By: #### [id number] #### [facility] [address] [place], [place] [address]SB6 [Moles/Vol]22 mmol/UTqhlei02-60RcufamUniversity Hospitals Conneaut Medical Center Comment on above:Performed By: #### [id number] #### [facility] [address] [place], [place] [address]Qzesbcwend [Mass/Vol]0.8 mg/dLNormal0.5-1.3FWhite HospitalComment on above:Performed By: #### [id number] #### [facility] [address] [place], [place] [address]Bon[place] [Mass/Vol]97 mg/ySVcttnz97-362WkbmzaUniversity Hospitals Conneaut Medical CenterComment on above:Performed By: #### [id number] #### [facility] [address] [place], [place] [address]Bwbxbzcbr [Moles/Vol]3.2 mmol/LLow3.5-5.3FWhite HospitalComment on above:Performed By: #### [id number] #### [facility] [address] [place], [place] [address]Qsksim [Moles/Vol]139 mmol/HRjoljf019-745SdboutUniversity Hospitals Conneaut Medical CenterComment on above:Performed By: #### [id number] #### [facility] [address] [place], [place] [address]Eiwf nitrogen [Mass/Vol]19 mg/dLNormal5-21[facility] Medical CenterComment on above:Performed By: #### [id number] #### [facility] [address] [place], [place] [address]Uvka nitrogen/Creatinine [Mass ratio]24 No WnlydKhzx45-81RbyusrUniversity Hospitals Conneaut Medical CenterComment on above:Performed By: #### [id number] #### [facility] [address] [place], [place] [address]Comjxacjdrre [Presence] in Urine by Screen methodOrdered By: Elfego Muniz on 85-81-1023Hcknxjenepeh Screen Ql (U)Barbiturates [Presence] in Urine by Screen methodNegativeOhiohealth Berger Hospital Benzodiazepines Screen Ql (U)Ordered By: Elfego Muniz on 10-15-2024 Benzodiazepines Ql (U)Benzodiazepines [Presence] in Urine by Screen method NegativeOhiohealth Berger HospitalBenzoylecgonine [Presence] in Urine by Screen methodOrdered By: Elfeog Muniz on 41-05-1779Xelmojvwvtntdqi Screen Ql (U)Benzoylecgonine [Presence] in Urine by Screen methodNegativeOhiohealth Berger HospitalBilirubin Test strip Ql (U)Ordered By: Elfego Muniz on 55-46-3925Nksrasefl Ql (U)Bilirubin.total [Presence] in Urine by Test stripNegativeOhiohealth Berger HospitalBioFire Not Detectedon 80-86-3872FrzRptz Not DetectedNot detectedNormalNot DetecteThe [facility] Physician GroupComment on above:Result Comment: This is a duplicate RP2.1 COVID (PCR) result to be used for statistical tracking purpose only. PERFORMED BY: [facility] [address] [place] [address] PATHOLOGIST GLOBE CHANGER MARQUITA BOLAÑOS M.D.Performed By: #### URDS #### [facility] [address] [place] [address] USABlood Bank ID#on [id number] Interpretation CodeUniversity Hospitals Conneaut Medical CenterComment on above:Performed By: #### [id number] #### [facility] Laboratory [address] [place] [address]EGL w/ Auto Diffon 93-83-7162Umbr form neutrophils/100 WBC (Bld)1.0 %Normal0.0-6.0University Hospitals Conneaut Medical CenterComment on above:Performed By: #### [id number] #### [facility] [address], [place] [address]Awtgafpos (Bld) [#/Vol]0.0 E9/LNormal0.0-0.2Fisher St. Agnes HospitalComment on above:Performed By: #### [id number] #### [facility] [address], [place] [address]Qqnhuvmoeyp (Bld) [#/Vol]0.1 E9/LNormal0.0-0.5FWhite HospitalComment on above:Performed By: #### [id number] #### [facility] [address], [place] [address]Gvkrmkvyyrf/100 WBC (Bld)1.0 %Normal0.0-8.0[facility]als Conneaut Medical CenterComment on above:Performed By: #### [id number] #### [facility] [address], [place] [address]Hwdifpwrigp distribution width (RBC) [Ratio]17.2 %High10.9-14.2 [facility] Conneaut Medical CenterComment on above:Performed By: #### [id number] #### [facility] [address], [place] [address]Ncnlugnmka (Bld) [Volume fraction]34.7 %Ucgehz81.0-46.0[facility]als Conneaut Medical CenterComment on above:Performed By: #### [id number] #### [facility] [address], [place] [address]Mfqylpskuh (Bld) [Mass/Vol]11.5 g/dLLow12.0-16.0[facility] Conneaut Medical CenterComment on above:Performed By: #### [id number] #### [facility] [address] [place] [address]Nnabqzbunvc (Bld) [#/Vol]7.8 E9/LHigh1.0-4.0[facility] Conneaut Medical CenterComment on above:Performed By: #### [id number] #### [facility] [address] [place] [address]Phurvhhjxns/100 WBC (Bld)41.0 %Crcged60.0-50.0[facility]als Conneaut Medical CenterComment on above:Performed By: #### [id number] #### [facility] [address], [place] [address]XDM (RBC) [Entitic mass]26.5 pgLow27.0-34.0[facility] Conneaut Medical CenterComment on above:Performed By: #### [id number] #### [facility] [address], [place] [address]HGOE (RBC) [Mass/Vol]33.3 g/xOGhkiqt91.4-36.0[facility] Conneaut Medical CenterComment on above:Performed By: #### [id number] #### [facility] [address], [place] [address]YBI (RBC) [Entitic vol]79.6 fLLow80.0-100.0[facility] Conneaut Medical CenterComment on above:Performed By: #### [id number] #### [facility] [address] [place] [address]Owcfordryr Ql (Bld)PRESENTInvalid Interpretation CodeUniversity Hospitals Conneaut Medical CenterComment on above:Performed By: #### [id number] #### [facility] [address] [place] [address]Xjduqxepl (Bld) [#/Vol]0.8 E9/LNormal0.2-1.0[facility] Medical CenterComment on above:Performed By: #### [id number] #### [facility] [address] [place] [address]Gkpdzfition (Bld) [#/Vol]2.8 E9/LInvalid Interpretation Code [facility] Conneaut Medical CenterComment on above:Performed By: #### [id number] #### [facility] [address] [place] [address]Xrkvttqo150.0 E9/WIylkjl441.0-500.0[facility] Comment on above:Performed By: #### [id number] #### [facility] [address] [place] [address]Mqngdozw mean volume (Bld) [Entitic vol]8.9 fLNormal6.4-10.8 [facility] Conneaut Medical CenterComment on above:Performed By: #### [id number] #### [facility] [address] [place] [address]PYQ (Bld) [#/Vol]4.3 E12/LNormal4.3-5.9[facility] Conneaut Medical CenterComment on above:Performed By: #### [id number] #### [facility] [address] [place] [address]JAY size Nom (Bld)SEE MORPHOLOGYInvalid Interpretation Code [facility] Conneaut Medical CenterComment on above:Performed By: #### [id number] #### [facility] [address] [place] [address]Fbrtbykck neutrophils/100 WBC (Bld)23.0 %Low36.0-75.0[facility] Conneaut Medical CenterComment on above:Performed By: #### [id number] #### [facility] [address], [place] [address]Upwpjfq lymphocytes/100 WBC (Bld)27.0 %High0.0-0.0[facility] Conneaut Medical CenterComment on above:Performed By: #### [id number] #### [facility] [address], [place] [address]OYJ corrected for nucl RBC Auto (Bld) [#/Vol]11.5 E9/LHigh 4.0-11.0[facility] Conneaut Medical CenterComment on above:Performed By: #### [id number] #### [facility] [address], [place] [address]GQUFTLQELZkwxpwo By: SYSTEM SYSTEM on 35-96-8510Ezdndg Acid Lvl 0.8 mmol/LNormal0.5 - 2.2 mmol/LRemisol [...] [Mass/Vol]8.8 mg/dLLow8.9 - 11.1 mg/dLRemisol ChemChloride [Moles/Vol]105 mmol/BGlxjvp407 - 111 mmol/LRemisol ChemCO2 [Moles/Vol]22 mmol/VLtanoe49 - 31 mmol/LRemisol ChemCreatinine [Mass/Vol]0.8 mg/dLNormal0.5 - 1.3 mg/dLRemisol QzjohTOJ876 mL/min/1.73 v6Ygelpt >=59mL/min/1.73 s0Ouyigzy ChemEthanol Lvlmg/dLNormal<=11mg/dLRemisol Chem Globulin (S) [Mass/Vol]2.6 g/dLNormal1.4 - 4.0 gm/dLRemisol ChemGlucose [Mass/Vol]97 mg/bETfbsje55 - 199 mg/dLRemisol ChemLactic Acid Lvl3.0 mmol/LHigh 0.5 - 2.2 mmol/LRemisol ChemLipase [Catalytic activity/Vol]10 U/LLow13 - 58 unit/LRemisol ChemMagnesium [Mass/Vol]1.9 mg/dLNormal1.3 - 2.4 mg/dLRemisol Chem Potassium [Moles/Vol]3.2 mmol/LLow3.5 - 5.3 mmol/LRemisol ChemProtein [Mass/Vol] 6.8 g/dLNormal6.0 - 7.8 gm/dLRemisol ChemSalicylate Lvlmg/dLLow6 - 29 mg/dL Remisol ChemSodium [Moles/Vol]139 mmol/SDqmbss253 - 145 mmol/LRemisol ChemTotal CK86 [iU]/mJwdcxq29 - 261 Int._Unit/LRemisol ChemTroponin HS5.00 pg/mLLow10.10 - 27.10 pg/mLRemisol ChemComment on above:Interpretive Data: The 95% CI (Confidence Interval) PPV (Positive Predictive Value) for myocardial infarction in females is 38 pg/mL, in males 51 pg/mL. The results should be used in conjunction withclinical conditions of myocardial infarction. (Access High Sensitivity Troponin I Instructions For Use, Candido Morganza, April 2018)Urea nitrogen [Mass/Vol]19 mg/dLNormal5 - 21 mg/dLRemisol ChemUrea nitrogen/Creatinine [Mass ratio]24 mg/zyHcbq50 - 20Remisol ChemCKon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 above:Performed By: #### CP, CBC #### [address] [place] [address] Wash Worker: Mike Raines MDCalcium [Mass/Vol]8.6 mg/dLNormal8.6-10.4MerConnecticut Children's Medical CenterComment on above:Performed By: #### CP, CBC #### [address] [place] [address] Wash Worker: Mike Raines MDChloride [Moles/Vol]104 mmol/VRekrwp69-443IfexrCleveland Clinic Mentor HospitalComment on above:Performed By: #### CP, CBC #### [address] [place] [address] Wash Worker: Mike Raines MDCO2 [Moles/Vol]28 mmol/TSxqbxa47-68Qlnao Tiffin HospitalComment on above:Performed By: #### CP, CBC #### [address] [place] [address] Wash Worker: Mike Raines MDCreatinine [Mass/Vol]0.7 mg/dLNormal0.5-0.9[facility] HospitalComment on above:Performed By: #### CP, CBC #### [address] [place] [address] Wash Worker: Mike Raines MDGFR/1.73 sq M.predicted among non-blacks MDRD (S/P/Bld) [Vol rate/Area]mL/min/{1.73_m2}Normal>60[facility] HospitalComment on above:Result Comment: These results are [...] tubular secretion.Performed By: #### CP, CBC #### [address] [place] [address] Wash Worker: Mike Raines MDGlucose [Mass/Vol]87 mg/sSOrxrvl15-94Ivitx [facility]'S HospitalComment on above:Performed By: #### LIZA, CBC #### [address] [place], [place] [id number] Wash Worker: KAYLEIGH Batemanotassium [Moles/Vol]4.0 mmol/LNormal3.7-5.3[facility] HospitalComment on above:Performed By: #### CP, CBC #### [address] [place], [place] [address] Wash Worker: Mike Raines MDProtein [Mass/Vol]5.8 g/dLLow6.4-8.3[facility] HospitalComment on above:Performed By: #### CP, CBC #### [address] [place], [place] 321[address]83 Wash Worker: Mike Raines MDSodium [Moles/Vol]139 mmol/SYriiwk046-173Coben Tiffin HospitalComment on above:Performed By: #### CP, CBC #### [address] [place], [place] 157[address]83 Wash Worker: Mike Raines MDUrea nitrogen [Mass/Vol]25 mg/dLHigh6-20[facility] HospitalComment on above:Performed By: #### CP, CBC #### [facility] [address] [place] [address] Wash Worker: Mike Raines MDMIZELL MEMORIAL [facility] CBC WITH PLATELET NO DIFFERENTIALon 49-66-2831Tgfbbqboepw distribution width (RBC) [Ratio]15.9 %High11.0 - 15.0 % [facility] HealthcareHematocrit (Bld) [Volume fraction]34.0 %Low36.0 - 48.0 %[facility] HealthcareHemoglobin (Bld) [Mass/Vol]10.1 g/dLLow12.0 - 16.0 g/dLPemiscot Memorial Health Systems Interpretation and review of laboratory resultsAbnormalShriners Hospitals for Children (RBC) [Entitic mass]22.6 pgLow26.7 - 34.0 pgSt. Louis Behavioral Medicine InstituteHC (RBC) [Mass/Vol]29.7 g/dLLow29.9 - 35.2 g/dLSt. Louis Behavioral Medicine InstituteV (RBC) [Entitic vol]76.2 fLLow81.0 - 99.0 fLPemiscot Memorial Health SystemsPlatelet mean volume (Bld) [Entitic vol]11.7 fL9.5 - 13.5 fLCrossroads Regional Medical Center HZR640PGTCExcelsior Springs Medical Center RBC4.46NOExcelsior Springs Medical Center WBC12.0 HighPemiscot Memorial Health SystemsCLINISYNCNOMS HealthcareCULTURE URINEon 24-31-5735FFOQSLF URINEIsolate 1 Escherichia coli >100,000 cfu/mL of [...] Nitrofurantoin <=16 S F Trimethoprim/Sulfamethoxazole >=320 R FNormalMetrohealth Cleveland Heights Medical CenterComment on above:Performed By: #### CBC #### [facility] [address] [place] [address] [address] Hemanth Toledo AUTO DIFFon 16-47-8556IUDA #0.0 103/ulNormal0.0-0.1The [facility] HospitalComment on above:Performed By: #### CBC #### [facility] [address] [place] [address] [address] Hemanth KerrBasophils/100 WBC (Bld)0.7 %Normal0.2-2.0[facility] Comment on above:Performed By: #### CBC #### [facility] [address] [place] [address] Dr. Hemanth Pablo #0.2 103/ulNormal0.0-0.7The [facility] HospitalComment on above: Performed By: #### CBC #### [facility] [address] [place] [address] Dr. Hemanth Watsonosinophils/100 WBC (Bld)3.3 %Normal0.9-7.0The [facility] Comment on above:Performed By: #### CBC #### [facility] [address] [place] [address] Dr. Hemanth Watsonrythrocyte distribution width (RBC) [Ratio]14.3 %Tigmus75.0-15.0 The [facility] HospitalComment on above:Performed By: #### CBC #### [facility] [address] [place] [address] Dr. Hemanth KerrHematocrit (Bld) [Volume fraction]37.2 %Fivurl85.0-48.0The [facility] HospitalComment on above:Performed By: #### CBC #### [facility] [address] [place] [address] Dr. Hemanth KerrHemoglobin (Bld) [Mass/Vol]11.9 g/dLCritically low12.0-16.0[facility] Medical CenterComment on above:Performed By: #### CBC #### [facility] [address] [place] [address] Dr. Hemanth Granados #0.01 10e3/ulNormal0.00-0.03The [facility] HospitalComment on above:Performed By: #### CBC #### [facility] [address] [place] [address] Dr. Hemanth Granados %0.2 %Normal0.0-0.5The [facility] HospitalComment on above: Performed By: #### CBC #### [facility] [address] [place] [address] Dr. Hemanth Greco #1.7 103/ulNormal1.2-3.8The [facility] HospitalComment on above:Performed By: #### CBC #### [facility] [address] [place] [address] Dr. Hemanth Goetzhocytes/100 WBC (Bld)31.3 %Dshzhd65.5-60.0The [facility] HospitalComment on above:Performed By: #### CBC #### [facility] [address] [place] [address] Dr. Hemanth Brown DIFF REQNONormalThe [facility] HospitalComment on above: Performed By: #### CBC #### [facility] [address] [place] [address] Dr. Hemanth Miller (RBC) [Entitic mass]27.8 hlErvuwl67.7-34.0The [facility] HospitalComment on above:Performed By: #### CBC #### [facility] [address] [place] [address] Dr. Hemanth Murphy (RBC) [Mass/Vol]32.0 g/kHEktuej25.9-35.2The [facility] HospitalComment on above:Performed By: #### CBC #### [facility] [address] [place] [address] Dr. Hemanth Murphy (RBC) [Entitic vol]86.9 cTBulfkx43.0-99.0The [facility] HospitalComment on above:Performed By: #### CBC #### [facility] [address] [place] [address] Dr. Hemanth Chavira #0.4 103/ulNormal0.3-0.8The [facility] HospitalComment on above:Performed By: #### CBC #### [facility] [address] [place] [address] Dr. Hemanth Bazanocytes/100 WBC (Bld)8.0 %Normal1.7-12.0The [facility] Comment on above:Performed By: #### CBC #### [facility] [address] [place] [address] Dr. Hemanth Joseph #3.1 103/ulNormal1.4-6.5The [facility] HospitalComment on above:Performed By: #### CBC #### [facility] [address] [place] [address] Dr. Hemanth Posadasutrophils/100 WBC (Bld)56.5 %Nmyhdq25.0-75.0The [facility] HospitalComment on above:Performed By: #### CBC #### [facility] [address] [place] [address] Dr. Hemanth Chavezlet mean volume (Bld) [Entitic vol]10.3 fLNormal9.5-13.5The [facility] HospitalComment on above:Performed By: #### CBC #### [facility] [address] [place] [address] Dr. Hemanth McdowellT258 103/tbFvvjqo707-533Wzi [facility] HospitalComment on above: Performed By: #### CBC #### [facility] [address] [place] [address] Dr. Hemanth KerrRBC4.28 106/ulNormal4.20-5.40The [facility] HospitalComment on above:Performed By: #### CBC #### [facility] [address] [place] [address] Dr. Hemanth KerrWBC5.4 103/ulNormal4.0-11.0The [facility] HospitalComment on above: Performed By: #### CBC #### [facility] [address] [place] [address] Dr. Hemanth Nguyen 14(COMP METB)on 64-18-6426Stfehlq [Mass/Vol]3.1 g/dL Critically low3.4-5.0The [facility] HospitalComment on above:Performed By: #### CMP #### [facility] [address] [place] [address] Dr. Hemanth KerrAlbumin/Globulin [Mass ratio]1.3 {ratio}NormalThe [facility] HospitalComment on above:Performed By: #### CMP #### [facility] [address] [place] [address] [address] Hemanth McleanP [Catalytic activity/Vol]56 U/PCjaqxl19-171Ymo [facility] HospitalComment on above:Performed By: #### CMP #### [facility] [address] [place] [address] Dr. Hemanth Mathis [Catalytic activity/Vol]34 U/RUidojc29-24Pyb [facility] HospitalComment on above:Performed By: #### CMP #### [facility] [address] [place] [address] Dr. Hemanth Anguiano gap [Moles/Vol]7.0 mmol/LNormalThe [facility] HospitalComment on above:Performed By: #### CMP #### [facility] [address] [place] [address] Dr. Hemanth KerrAST [Catalytic activity/Vol]29 U/PThwyiy47-01Paw [facility] HospitalComment on above:Performed By: #### CMP #### [facility] [address] [place] [address] Dr. Hemanth KerrBilirubin [Mass/Vol]0.4 mg/dLNormal0.2-1.0The [facility] Comment on above:Performed By: #### CMP #### [facility] [address] [place] [address] Dr. Hemanth KerrCalcium [Mass/Vol]8.3 mg/dLCritically low8.5-10.1The [facility] HospitalComment on above:Performed By: #### CMP #### [facility] [address] [place] [address] Dr. Hemanth KerrChloride [Moles/Vol]110 mmol/LCritically yfsi61-033Dny [facility] HospitalComment on above:Performed By: #### CMP #### [facility] [address] [place] [address] Dr. Hemanth KerrCO2 [Moles/Vol]27.6 mmol/RQmivob73.0-32.0The [facility] Comment on above:Performed By: #### CMP #### [facility] [address] [place] [address] [address] Hemanth KerrCreatinine [Mass/Vol]0.61 mg/dLNormal0.55-1.02The [facility] HospitalComment on above:Performed By: #### CMP #### [facility] [address] [place] [address] Dr. Hemanth WatsonGFR-AF WALLISIAN>60Normal>=60The [facility] HospitalComment on above:Performed By: #### CMP #### [facility] [address] [place] [address] Dr. Hemanth WatsnoGFR-NON AF WALLISIAN>60Normal>=60The [facility] HospitalComment on above:Performed By: #### CMP #### [facility] [address] [place] [address] Dr. Hemanth KerrGlobulin (S) [Mass/Vol]2.4 g/dLNormalThe [facility] HospitalComment on above:Performed By: #### CMP #### [facility] [address] [place] [address] Dr. Hemanth KerrGlucose [Mass/Vol]110 mg/dLCritically udme52-867Dyy [facility] HospitalComment on above:Performed By: #### CMP #### [facility] [address] [place] [address] [address] Hemanth KerrPotassium [Moles/Vol]2.6 mmol/LCritically low3.5-5.1The [facility] HospitalComment on above:Performed By: #### CMP #### [facility] [address] [place] [address] Dr. Hemanth KerrProtein [Mass/Vol]5.5 g/dLCritically low6.4-8.2[facility] Medical CenterComment on above:Performed By: #### CMP #### [facility] [address] [place] [address] [address] Hemanth KerrSodium [Moles/Vol]142 mmol/WYxyjyz494-864Osr [facility] Comment on above:Performed By: #### CMP #### [facility] [address] [place] [address] [address] Hemanth KerrUrea nitrogen [Mass/Vol]12.0 mg/dLNormal7.0-18.0The [facility] HospitalComment on above:Performed By: #### CMP #### [facility] [address] [place] [address] [address] Hemanth Pelaez nitrogen/Creatinine [Mass ratio]19.7 mg/mgNoCincinnati Children's Hospital Medical CenterComment on above:Performed By: #### CMP #### [facility] [address] [place] [address] [address] Hemanth KerrXR HIP LT 2 3V W PELVISon 10-71-7481NE HIP LT 2 3V W PELVISEXAM: XR HIP LT 2 3V W PELVIS HISTORY: Pain COMPARISON: None. TECHNIQUE: 3 views of the left hip FINDINGS: No acute fracture seen. Joint alignment is normal. Joint spaces are preserved. Soft tissues appear unremarkable. IMPRESSION: No obvious radiographic evidence for acute displaced fracture or malalignment. Electronically authenticated by: ALIX GRANADOS Date: 2022-11-28 22:13Parkwood HospitalACETAMINOPHENon 49-42-6527Ceelwphoqtfdr [Mass/Vol]ug/mL Critically low10.0-30.0The [facility] HospitalComment on above:Performed By: #### CMP #### [facility] [address] [place] [address] [address] Hemanth KerrACETONE SERUMon 23-65-0269KKSUHXEIibkmctbSbpbmbAJAKGVRMOid [facility] HospitalComment on above:Performed By: #### PREG #### [facility] [address] [place] [address] [address] Hemanth KerrAMMONIAon 40-13-7773Rmjxvyg (P) [Moles/Vol]24 umol/QOodwsj37-62 The [facility] HospitalComment on above:Performed By: #### LACT #### [facility] [address] [place] [address] Dr. Hemanth Toledo AUTO DIFFon 70-65-2258GCZH #0.0 103/ulNormal0.0-0.1The [facility] HospitalComment on above:Performed By: #### LACT #### [facility] [address] [place] [address] Dr. Hemanth KerrBasophils/100 WBC (Bld)0.4 %Normal0.2-2.0The [facility] Comment on above:Performed By: #### LACT #### [facility] [address] [place] [address] Dr. Saxena ChangEChristiana #0.3 103/ulNormal0.0-0.7The [facility] HospitalComment on above: Performed By: #### LACT #### [facility] [address] [place] [address] Dr. Hemanth Watsonosinophils/100 WBC (Bld)3.1 %Normal0.9-7.0The [facility] Comment on above:Performed By: #### LACT #### [facility] [address] [place] [address] Dr. Hemanth Watsonrythrocyte distribution width (RBC) [Ratio]14.3 %Mrufza71.0-15.0 [facility] Medical CenterComment on above:Performed By: #### LACT #### [facility] [address] [place] [address] Dr. Hemanth KerrHematocrit (Bld) [Volume fraction]41.3 %Ekbnzc13.0-48.0The [facility] HospitalComment on above:Performed By: #### LACT #### [facility] [address] [place] [address] Dr. Hemanth KerrHemoglobin (Bld) [Mass/Vol]13.3 g/xHIfhwdb40.0-16.0The [facility] HospitalComment on above:Performed By: #### LACT #### [facility] [address] [place] [address] Dr. Hemanth Granados #0.02 10e3/ulNormal0.00-0.03The [facility] HospitalComment on above:Performed By: #### LACT #### [facility] [address] [place] [address] Dr. Hemanth Granados %0.2 %Normal0.0-0.5The [facility] HospitalComment on above: Performed By: #### LACT #### [facility] [address] [place] [address] Dr. Hemanth Greco #2.4 103/ulNormal1.2-3.8The [facility] HospitalComment on above:Performed By: #### LACT #### [facility] [address] [place] [address] Dr. Hemanth Castillohocytes/100 WBC (Bld)26.3 %Pecmuh40.5-60.0The [facility] HospitalComment on above:Performed By: #### LACT #### [facility] [address] [place] [address] Dr. Hemanth KerrVAN [facility] DIFF REQNONormalThe [facility] HospitalComment on above: Performed By: #### LACT #### [facility] [address] [place] [address] Dr. Hemanth Murphy (RBC) [Entitic mass]27.4 zjFahowi61.7-34.0The [facility] HospitalComment on above:Performed By: #### LACT #### [facility] [address] [place] [address] Dr. Hemanth Murphy (RBC) [Mass/Vol]32.2 g/xRRmpxyo12.9-35.2The [facility] HospitalComment on above:Performed By: #### LACT #### [facility] [address] [place] [address] Dr. Hemanth Murphy (RBC) [Entitic vol]85.0 aYDtciaw85.0-99.0The [facility] HospitalComment on above:Performed By: #### LACT #### [facility] [address] [address] [address] Hemanth Chaivra #0.7 103/ulNormal0.3-0.8The [facility] HospitalComment on above:Performed By: #### LACT #### [facility] [address] [place] [address] Dr. Hemanth Bazanocytes/100 WBC (Bld)7.3 %Normal1.7-12.0The [facility] Comment on above:Performed By: #### LACT #### [facility] [address] [place] [address] Dr. Hemanth Joseph #5.7 103/ulNormal1.4-6.5The [facility] HospitalComment on above:Performed By: #### LACT #### [facility] [address] [place] [address] Dr. Hemanth Posadasutrophils/100 WBC (Bld)62.7 %Rjpdgj07.0-75.0The [facility] HospitalComment on above:Performed By: #### LACT #### [facility] [address] [place] [address] Dr. Hemanth Andrews mean volume (Bld) [Entitic vol]10.6 fLNormal9.5-13.5The [facility] HospitalComment on above:Performed By: #### LACT #### [facility] [address] [place] [address] Dr. Hemanth KerrPLT347 103/inDvgjkz471-259Vlu [facility] HospitalComment on above: Performed By: #### LACT #### [facility] [address] [place] [address] Dr. Hemanth KerrRBC4.86 106/ulNormal4.20-5.40The [facility] HospitalComment on above:Performed By: #### LACT #### [facility] [address] [place] [address] Dr. Hemanth KerrWBC9.1 103/ulNormal4.0-11.0The [facility] HospitalComment on above: Performed By: #### LACT #### [facility] [address] [id number] [address] Hemanth Ruff CSPINE WO CONon [id number] CSPINE WO CONEXAMINATION: CT CSPINE WO CON [...] Electronically authenticated by: KAMILLA MILLS Date: 2022-11-28 17:54NoCincinnati Children's Hospital Medical CenterCT HEAD WO CONon [id number] HEAD WO CONEXAM: CT HEAD WO CON, [...] authenticated by: KAMILLA MILLS Date: 2022-11-28 18:40NormalThe [facility]ster HospitalCULTURE BLOODon 18-19-6921Wdnpevfmlkc examination of blood, cultureCulture Observations: NO GROWTH AT 5 DAYS.NormalMetrohealth Cleveland Heights Medical CenterComment on above:Performed By: #### CBC #### [facility] [address] [place] [address] Dr. Hemanth KerrMicroscopic examination of blood, cultureCulture Observations: NO GROWTH AT 5 DAYS.NormalThe [facility]ster HospitalComment on above:Performed By: #### [id number] #### [facility] [address] [address] [address] Hemanth KerrCovid-19 PCR ([facility])on 14-93-7497IIPL-CoV-2 (COVID-19) RNA ELMO+probe Ql (Unsp spec)Not detectedNormalNOT DETECTEDThe [facility] Comment on above:Result Comment: When diagnostic [...] for this test is supported by the Field Inspector of Health and Human Service's declaration that [...] longer be used).Performed By: #### LACT #### [facility] [address] [place] [address] Dr. Hemanth KerrDRUG SCREEN RAPID (URINE)on [id number]QAM The [facility] HospitalComment on above:Performed By: #### PREG #### [facility] [address] [place] [address] Dr. Hemanth KerrBARNegativeNormalNEGATIVEMetrohealth Cleveland Heights Medical CenterComment on above: Performed By: #### PREG #### [facility] [address] [address] [address] Hemanth KerrBUPNegativeNormalNEGATIVEMetrohealth Cleveland Heights Medical CenterComtrinity health [facility] on above: Performed By: #### PREG #### [facility] [address] [address] [address] Hemanth KerrBZONegativeNormalNEGATIVEMetrohealth Cleveland Heights Medical CenterComment on above: Performed By: #### PREG #### [facility] [address] [address] [address] Hemanth KerrCOCNegativeNormalNEGATIVEMetrohealth Cleveland Heights Medical CenterComment on above: Performed By: #### PREG #### [facility] [address] [place] [address] Dr. Hemanth FordMercy Healthment on above: Result Comment: AMP (Amphetamine): 500ng/mL, BAR (Barbituates): 200 ng/mL, BZO (Benzodiazepines): 150 ng/mL, BUP (Buprenorphine): 10 ng/mL, YOLANDA (Cocaine): 150 ng/mL, mAMP (Methamphetamine): 500 ng/mL, MTD (Methadone): 200 ng/mL, OPI (Opiates): 100 ng/mL, OXY (Oxycodone): 100 ng/mL, PCP (Phencyclidine): 25 ng/mL, PPX (Propoxyphene): 300 ng/mL, THC (Cannabinoids): 50 ng/mL, TCA (Trycyclic Antidepressants): 300 ng/mLPerformed By: #### PREG #### [facility] [address] [place] [address] Dr. Hemanth KerrDRUG CUT HEADERDRUG CLASS TEST SYSTEM CUT-OFF CONCENTRATIONS ARE FOLLOWS:NormalThe [facility] HospitalComtrinity health [facility] hospital on above:Performed By: #### PREG #### [facility] [address] [address] [address] Hemanth KerrmAMPPositiveAbnormalNEGATIVEMetrohealth Cleveland Heights Medical CenterComtr[facility] health [facility] on above:Performed By: #### PREG #### [facility] [address] [address] [address] Hemanth KerrMTDNegativeNormalNEGATIVEMetrohealth Cleveland Heights Medical CenterComment on above: Performed By: #### PREG #### [facility] [address] [address] [address] Hemanth KerrOPINegativeNormalNEGATIVEMetrohealth Cleveland Heights Medical CenterComtr[facility] health [facility] on above: Performed By: #### PREG #### [facility] [address] [address] [address] Hemanth KerrOXYNegativeNormalNEGATIVEMetrohealth Cleveland Heights Medical CenterComment on above: Performed By: #### PREG #### [facility] [address] [address] [address] Hemanth KerrPCPNegativeNormalNEGATIVEMetrohealth Cleveland Heights Medical CenterComtr[facility] health [facility] on above: Performed By: #### PREG #### [facility] [address] [address] [address] Hemanth KerrPPXNegativeNormalNEGATIVEMetrohealth Cleveland Heights Medical CenterComtr[facility] health [facility] on above: Performed By: #### PREG #### [facility] [address] [address] [address] Hemanth KerrTCANegativeNormalNEGATIVEMetrohealth Cleveland Heights Medical CenterComtr[facility] on above: Performed By: #### PREG #### [facility] [address] [place] [address] Dr. Hemanth KerrTHCNegativeNormalNEGATIVEMetrohealth Cleveland Heights Medical CenterComtr[facility] health [facility] hospital on above: Performed By: #### PREG #### [facility] [address] [address] [address] Saxena ChangEDelmis URINE PROFILEon 75-86-1594Mqfzxxjjg Ql (U)NegativeNormal NEGATIVEMetrohealth Cleveland Heights Medical CenterComment on above:Performed By: #### PREG #### [facility] [address] [address] [address] Hemanth Goodwin (U)CLEARNormalCLEARMetrohealth Cleveland Heights Medical CenterComment on above: Performed By: #### PREG #### [facility] [address] [address] [address] Yilan ChangColor (U)LT. YELLOWNormalYELLOWMetrohealth Cleveland Heights Medical CenterComment on above:Performed By: #### PREG #### [facility] [address] [address] [address] Hemanth Hewitt micrscopic examination will be performed if indicated. NormalMetrohealth Cleveland Heights Medical CenterComment on above:Performed By: #### PREG #### [facility] [address] [address] [address] Hemanth KerrGlucose Ql (U)NegativeNormalNEGATIVEMetrohealth Cleveland Heights Medical CenterComment on above:Performed By: #### PREG #### [facility] [address] [place] [address] Dr. Hemanth KerrHemoglobin Ql (U)NegativeNormalNEGUniversity Hospitals TriPoint Medical Center Comment on above:Performed By: #### PREG #### [facility] [address] [place] [address] Dr. Hemanth KerrKetones Ql (U)NegativeNormalNEGATIVEMetrohealth Cleveland Heights Medical CenterComment on above:Performed By: #### PREG #### [facility] [address] [place] [address] Dr. Hemanth KerrLEUKOCYTESNegativeNormalNEGATIVEMetrohealth Cleveland Heights Medical CenterComment on above:Performed By: #### PREG #### [facility] [address] [place] [address] Dr. Hemanth KerrNitrite Ql (U)PositiveAbnormalNEGUniversity Hospitals TriPoint Medical Center Comment on above:Performed By: #### PREG #### [facility] [address] [address] [address] Hemanth KerrpH (U)7.5 [pH]Normal5-9Met[facility] Medical CenterComment on above: Performed By: #### PREG #### [facility] [address] [place] [address] Dr. Hemanth KerrSPEC GRAVITY1.776Gkyana7.005-<=1.025Met[facility] Heights Medical CenterComment on above:Performed By: #### PREG #### [facility] [address] [place] [address] Dr. Hemanth Matthews PROTEINTRACENormalNEGATIVE/ TRACEThe [facility] HospitalComment on above:Performed By: #### PREG #### [facility] [address] [place] [address] Dr. Hemanth Morrison MICRO INDINDICATEDNoCincinnati Children's Hospital Medical CenterComment on above: Performed By: #### PREG #### [facility] [address] [place] [address] Dr. Hemanth Lottbilgrantgen Qn (U)1.0 {Jose'U}/dLNormal0.2 - 1.0The [facility] HospitalComment on above:Performed By: #### PREG #### [facility] [address] [place] [address] Dr. Hemanth Ahn (BLD ALC)on 04-60-7652RQN NOTENOTE: 80 mg/dl is the legal limit for a blood alcohol levelParkwood HospitalComment on above: Performed By: #### CMP #### [facility] [address] [place] [address] Dr. Hemanth Chenanol [Mass/Vol]mg/dLNoCincinnati Children's Hospital Medical CenterComment on above:Performed By: #### CMP #### [facility] [address] [place] [address] Dr. Hemanth FontanezCTATE/LACTIC ACIDon 00-14-6535Moswchd [Moles/Vol]0.7 mmol/L Normal0.4-2.0The [facility] on above:Performed By: #### LACT #### [facility] [address] [place] [address] Dr. Hemanth KerrLactate [Moles/Vol]9.0 mmol/LCritically high0.4-2.0The [facility] Medical Centerment on above:Performed By: #### LACT #### [facility] [address] [place] [address] Dr. Hemanth Tolentino VENOUS BLOODon 67-93-1100GKZ7 ULMKYM63.6 mmHgCritically low 40.0-52.0The [facility] HospitalComment on above:Performed By: #### PHVEN #### [facility] [address] [place] [address] Dr. Hemanth KerrpH VENOUS7.181Xwgvbi4.330-7.430The [facility] HospitalComment on above:Performed By: #### PHVEN #### [facility] [address] [place] [address] Dr. Hemanth KerrPOINT OF CARE GLUCOSEon 45-15-0192Thpsgvk [Mass/Vol]127 mg/dL Critically vlpi69-791Xix [facility] HospitalComment on above:Performed By: #### CBC #### [facility] [address] [place] [address] Dr. Hemanth KerrPREG HCG QUALon 66-04-7421GOHPIKZPY, QUALNegativeNormalNEGATIVE The [facility] HospitalComment on above:Performed By: #### PREG #### [facility] [address] [place] [address] Dr. Hemanth KerrPROF 14(COMP METB)on 44-76-5716Qgfpiqg [Mass/Vol]3.7 g/dLNormal 3.4-5.0The [facility] HospitalComment on above:Performed By: #### LACT #### [facility] [address] [place] [address] Dr. Hemanth KerrAlbumin/Globulin [Mass ratio]1.3 {ratio}NormalThe [facility] HospitalComment on above:Performed By: #### LACT #### [facility] [address] [place] [address] Dr. Hemanth Valles [Catalytic activity/Vol]72 U/JAhtntp31-985Yko [facility] HospitalComment on above:Performed By: #### LACT #### [facility] [address] [place] [address] Dr. Hemanth Mathis [Catalytic activity/Vol]42 U/HLghlwy55-48Vmv [facility] HospitalComment on above:Performed By: #### LACT #### [facility] [address] [place] [address] Dr. Hemanth Anguiano gap [Moles/Vol]16.3 mmol/LNormalThe [facility] Comment on above:Performed By: #### LACT #### [facility] [address] [address] [address] Hemanth KerrAST [Catalytic activity/Vol]45 U/LCritically kfrt69-09Cko [facility] HospitalComment on above:Performed By: #### LACT #### [facility] [address] [address] [address] Hemanth KerrBilirubin [Mass/Vol]0.4 mg/dLNormal0.2-1.0The [facility] Comment on above:Performed By: #### LACT #### [facility] [address] [address] [address] Hemanth KerrCalcium [Mass/Vol]8.8 mg/dLNormal8.5-10.1The [facility] Comment on above:Performed By: #### LACT #### [facility] [address] [address] [address] Hemanth KerrChloride [Moles/Vol]107 mmol/JCeylmp53-655Cvy [facility] Comment on above:Performed By: #### LACT #### [facility] [address] [address] [address] Hemanth KerrCO2 [Moles/Vol]21.8 mmol/FKyvvwe65.0-32.0The [facility] Comment on above:Performed By: #### LACT #### [facility] [address] [address] [address] Hemanth KerrCreatinine [Mass/Vol]1.32 mg/dLCritically high0.55-1.02The [facility] HospitalComment on above:Performed By: #### LACT #### [facility] [address] [address] [address] Hemanth WatsonGFR-AF FXLUGPUB31 mL/min/1.01g2Iqvdahajcz low>=60The [facility] HospitalComment on above:Performed By: #### LACT #### [facility] [address] [address] [address] Hemanth WatsonGFR-NON AF QYGREUZN77 mL/min/1.46f7Jgxskklfku low>=60The [facility] HospitalComment on above:Performed By: #### LACT #### [facility] [address] [address] [address] Hemanth KerrGlobulin (S) [Mass/Vol]2.9 g/dLNormalThBlanchard Valley Health System Blanchard Valley HospitalComment on above:Performed By: #### LACT #### [facility] [address] [address] [address] Hemanth KerrGlucose [Mass/Vol]143 mg/dLCritically mssi04-698Tpc [facility] HospitalComment on above:Performed By: #### LACT #### [facility] [address] [address] [address] Hemanth KerrPotassium [Moles/Vol]3.1 mmol/LCritically low3.5-5.1The [facility] HospitalComment on above:Performed By: #### LACT #### [facility] [address] [address] [address] Hemanth KerrProtein [Mass/Vol]6.6 g/dLNormal6.4-8.2The [facility] Comment on above:Performed By: #### LACT #### [facility] [address] [address] [address] Hemanth KerrSodium [Moles/Vol]142 mmol/PSvndcr770-504Uwl [facility] Comment on above:Performed By: #### LACT #### [facility] [address] [address] [address] Hemanth KerrUrea nitrogen [Mass/Vol]17.0 mg/dLNormal7.0-18.0The [facility] HospitalComment on above:Performed By: #### LACT #### [facility] [address] [address] [address] Hemanth KerrUrea nitrogen/Creatinine [Mass ratio]12.9 mg/mgNoCincinnati Children's Hospital Medical CenterComment on above:Performed By: #### LACT #### [facility] [address] [address] [address] Hemanth KerrPROTIMEon 11-70-6086QYX Coag (PPP) [Relative time]0.97 {INR} NormalThe [facility] Vincent Medical Centerment on above:Performed By: #### PT, PTT #### [facility] [address] [place] [address] Dr. Hemanth Calvillo Premier HealthComment on above:Result Comment: DESIRED INR: 2.0 - 3.0 CONDITIONS NOT LISTED BELOW 2.5 - 3.5 FOR PROSTHETIC HEART VALVE REPLACEMENT 2.5 - 3.5 RECURRENT THROMBOSIS Performed By: #### PT, PTT #### [facility] [address] [place] [address] Dr. Hemanth KerrPT Coag (PPP) [Time]10.3 sNormal9.0-11.6The [facility] Comment on above:Performed By: #### PT, PTT #### [facility] [address] [place] [address] Dr. Hemanth JamesonTon 12-26-0584fQFC Coag (Bld) [Time]25.4 gJpmzth99.3-36.2[facility] on above:Performed By: #### PT, PTT #### [facility] [address] [place] [address] Dr. Hemanth DelvalleICYLATEon 04-18-2360VOVPBHNEXR<2.8Normal<=19.9The [facility] on above:Performed By: #### CMP #### [facility] [address] [place] [address] Dr. Hemanth Martinez, HIGH SENSITIVITYon 46-12-8673HSSEPL5.2 pg/mLNormal 4.0-51.3The [facility] on above:Result Comment: CUT-OFF POINTS HAVE BEEN ESTABLISHED BASED ON THE FOURTH UNIVERSAL DEFINITIONS OF MYOCARDIAL INFARCTION. THE UPPER REFERENCE LIMIT (URL) OF TROPONIN, DEFINED THE 99TH PERCENTILE OF cTnI DISTRIBUTION IN A REFERENCE POPULATION, HAS BEEN CONFIRMED THE DECISION THRESHOLD FOR [place] DIAGNOSIS.Performed By: #### CMP #### [facility] [address] [place] [address] Dr. Hemanth Sam 66-28-0015PMH9.476 uIU/mLNormal0.358-3.740The [facility] Medical Centerment on above:Performed By: #### LACT #### [facility] [address] [address] [address] Hemanth Castelan MICROSCOPIC ONLYon 45-36-1217OIRPUOSIKSUHZVulgzvgtTMIH SEEN [facility] on above:Performed By: #### PREG #### [facility] [address] [address] [address] Hemanth Pritchett identified Cx Nom (U)INDICATEDNormalThe [facility] HospitalComment on above:Performed By: #### PREG #### [facility] [address] [address] [address] Hemanth MoultonSEENAbnormalNONE SEENKettering Memorial Hospital on above: Performed By: #### PREG #### [facility] [address] [place] [address] Dr. Hemanth Shaw GRANULAR CASTRARENormalMetrohealth Cleveland Heights Medical CenterComtr[facility] health [facility] on above:Performed By: #### PREG #### [facility] [address] [place] [address] Dr. Hemanth Correaystals LM Nom (Urine sed)NONE SEENNormalNONE SEENKettering Memorial Hospital on above:Performed By: #### PREG #### [facility] [address] [place] [address] Dr. Saxena ChangEpithelial cells LM Ql (Urine sed)RARENormalNONE SEEN /RAREThe [facility] on above:Performed By: #### PREG #### [facility] [address] [place] [address] Dr. Hemanth MurilloUSNONE SEENNormalNONE SEENKettering Memorial Hospital on above:Performed By: #### PREG #### [facility] [address] [address] [address] Hemanth VidalEielrVRO9-1Alzmkx4-9EwpKettering Memorial Hospital on above:Performed By: #### PREG #### [facility] [address] [place] [address] Dr. Hemanth ShankarBC2-5AbnormalNONE SEENMetrohealth Cleveland Heights Medical CenterComment on above: Performed By: #### PREG #### [facility] [address] [place] [address] Dr. Hemanth KerrXR CHEST 1 Von [id number] CHEST 1 VEXAM: XR CHEST 1 V [...] examination of the chest. Electronically authenticated by: KAMILAL MILLS Date: 2022-11-28 17:39NoCincinnati Children's Hospital Medical CenterCULTURE URINEon 24-77-6101BHOJCVL URINEIsolate 1 Escherichia coli >100,000 cfu/mL of [...] Nitrofurantoin <=16 S F Trimethoprim/Sulfamethoxazole >=320 R FNormalMetrohealth Cleveland Heights Medical CenterComment on above:Performed By: #### URCX #### [facility] [address] [place] [address] Dr. Hemanth Toledo AUTO DIFFon [id number] #0.0 103/ulNormal0.0-0.1The [facility] HospitalComtrinity health [facility] hospital on above:Performed By: #### CBC #### [facility] [address] [place] [address] Dr. Hemanth KerrBasophils/100 WBC (Bld)0.3 %Normal0.2-2.0The [facility] Comment on above:Performed By: #### CBC #### [facility] [address] [place] [address] Dr. Hemanth Pablo #0.0 103/ulNormal0.0-0.7The [facility] HospitalComment on above: Performed By: #### CBC #### [facility] [address] [place] [address] Dr. Hemanth Watsonosinophils/100 WBC (Bld)0.4 %Critically low0.9-7.0The [facility] HospitalComment on above:Performed By: #### CBC #### [facility] [address] [place] [address] Dr. Hemanth Watsonrythrocyte distribution width (RBC) [Ratio]12.2 %Rssnpi33.0-15.0 The [facility] HospitalComment on above:Performed By: #### CBC #### [facility] [address] [place] [address] Dr. Hemanth KerrHematocrit (Bld) [Volume fraction]38.6 %Pmucnh07.0-48.0The [facility] HospitalComment on above:Performed By: #### CBC #### [facility] [address] [place] [address] Dr. Hemanth KerrHemoglobin (Bld) [Mass/Vol]12.0 g/aJKzwrqa02.0-16.0The [facility] HospitalComment on above:Performed By: #### CBC #### [facility] [address] [place] [address] Dr. Hemanth Granados #0.07 10e3/ulCritically high0.00-0.03The [facility] Comment on above:Performed By: #### CBC #### [facility] [address] [place] [address] Dr. Hemanth Granados %0.7 %Critically high0.0-0.5The [facility] HospitalComment on above:Performed By: #### CBC #### [facility] [address] [place] [address] Dr. Hemanth Greco #1.2 103/ulNormal1.2-3.8The [facility] HospitalComment on above:Performed By: #### CBC #### [facility] [address] [place] [address] Dr. Hemanth Goetzhocytes/100 WBC (Bld)12.1 %Critically low20.5-60.0The [facility] HospitalComment on above:Performed By: #### CBC #### [facility] [address] [place] [address] Dr. Hemanth Brown DIFF REQNONormalThe [facility] HospitalComment on above: Performed By: #### CBC #### [facility] [address] [place] [address] Dr. Hemanth Murphy (RBC) [Entitic mass]28.0 ykEucjrv14.7-34.0The [facility] HospitalComment on above:Performed By: #### CBC #### [facility] [address] [place] [address] Dr. Hemanth Murphy (RBC) [Mass/Vol]31.1 g/aAZmdbli44.9-35.2The [facility] HospitalComment on above:Performed By: #### CBC #### [facility] [address] [place] [address] Dr. Hemanth Murphy (RBC) [Entitic vol]90.2 mUZxndfb62.0-99.0The [facility] HospitalComment on above:Performed By: #### CBC #### [facility] [address] [place] [address] Dr. Hemanth Chavira #0.7 103/ulNormal0.3-0.8The [facility] HospitalComment on above:Performed By: #### CBC #### [facility] [address] [place] [address] Dr. Hemanth Bazanocytes/100 WBC (Bld)6.9 %Normal1.7-12.0The [facility] Comment on above:Performed By: #### CBC #### [facility] [address] [place] [address] Dr. Hemanth PosadasUT #8.1 103/ulCritically high1.4-6.5The [facility] Comment on above:Performed By: #### CBC #### [facility] [address] [place] [address] Dr. Hemanth Posadasutrophils/100 WBC (Bld)79.6 %Critically high43.0-75.0The [facility] HospitalComment on above:Performed By: #### CBC #### [facility] [address] [place] [address] Dr. Hemanth KerrPlatelet mean volume (Bld) [Entitic vol]10.8 fLNormal9.5-13.5The [facility] Rut[facility] HospitalComment on above:Performed By: #### CBC #### [facility] [address] [place] [address] Dr. Hemanth KerrPLT452 103/ulCritically vzby624-197Tth [facility] HospitalComment on above:Performed By: #### CBC #### [facility] [address] [place] [address] Dr. Hemanth KerrRBC4.28 106/ulNormal4.20-5.40The [facility] HospitalComment on above:Performed By: #### CBC #### [facility] [address] [place] [address] Dr. Hemanth KerrWBC10.1 103/ulNormal4.0-11.0The [facility] HospitalComment on above:Performed By: #### CBC #### [facility] [address] [place] [address] Dr. Hemanth KerrCT ABD/PELVIS WO CONon [id number] ABD/PELVIS WO CONEXAMINATION: CT ABD/PELVIS WO CON [...] Electronically authenticated by: CHRISTINE SÁNCHEZ Date: 2022-10-11 14:[address] [place] [address] URINE PROFILEon 53-36-1709Nsvzwngnq Ql (U)NegativeNormal NEGATIVEMetrohealth Cleveland Heights Medical CenterComment on above:Performed By: #### LACT #### [facility] [address] [place] [address] Dr. Hemanth Goodwin (U)CLEARNormalCLEARThe [facility] HospitalComment on above: Performed By: #### LACT #### [facility] [address] [address] [address] Hemanth Vang (U)LT. YELLOWNormalYELLOWMetrohealth Cleveland Heights Medical CenterComment on above:Performed By: #### LACT #### [facility] [address] [address] [address] Hemanth Hewitt micrscopic examination will be performed if indicated. NormalThe [facility] HospitalComment on above:Performed By: #### LACT #### [facility] [address] [place] [address] Dr. Hemanth Cortezose Ql (U)NegativeNormalNEGATIVEThe [facility] HospitalComment on above:Performed By: #### LACT #### [facility] [address] [address] [address] Hemanth KerrHemoglobin Ql (U)LARGEAbnormalNEGATIVEMetrohealth Cleveland Heights Medical Center Comment on above:Performed By: #### LACT #### [facility] [address] [address] [address] Hemanth Sandovalones Ql (U)NegativeNormalNEGATIVEMetrohealth Cleveland Heights Medical CenterComment on above:Performed By: #### LACT #### [facility] [address] [address] [address] Hemanth OrtizOCYTESSMALLAbnormalNEGATIVEMetrohealth Cleveland Heights Medical CenterComment on above:Performed By: #### LACT #### [facility] [address] [place] [address] Dr. Hemanth KerrNitrite Ql (U)NegativeNormalNEGATIVEMetrohealth Cleveland Heights Medical CenterComment on above:Performed By: #### LACT #### [facility] [address] [place] [address] Dr. Hemanth KerrpH (U)6.5 [pH]Normal5-9Met[facility] Heights Medical CenterComment on above: Performed By: #### LACT #### [facility] [address] [address] [address] Hemanth KerrProtein (U) [Mass/Vol]30 mg/dLAbnormalNEGATIVE/ TRACEThe [facility] HospitalComment on above:Performed By: #### LACT #### [facility] [address] [address] [address] Hemanth KerrSPEC GRAVITY<=1.104Lxbfxyic2.005-<=1.025[facility] Comment on above:Performed By: #### LACT #### [facility] [address] [place] [address] Dr. Hemanth Morrison MICRO INDINDICATEDNoalThBlanchard Valley Health System Blanchard Valley HospitalComment on above: Performed By: #### LACT #### [facility] [address] [address] [address] Hemanth Lottbilinogen Qn (U)1.0 {Jose'U}/dLNormal0.2 - 1.0The [facility] Medical Centerment on above:Performed By: #### LACT #### [facility] [address] [address] [address] Hemanth AndreaG HCG QUALon 29-71-0506MURJHMOLI, QUALNegativeNormalNEGATIVE The [facility] HospitalComment on above:Performed By: #### PREG #### [facility] [address] [address] [address] Hemanth KerrPROF CHEM 8 (BAS METB)on 24-42-1720Opljv gap [Moles/Vol]9.4 mmol/LNormalThe [facility] HospitalComment on above:Performed By: #### LACT #### [facility] [address] [place] [address] Dr. Hemanth KerrCalcium [Mass/Vol]8.8 mg/dLNormal8.5-10.1The [facility] Comment on above:Performed By: #### LACT #### [facility] [address] [place] [address] Dr. Hemanth KerrChloride [Moles/Vol]97 mmol/LCritically fyg02-969Vpd [facility] HospitalComment on above:Performed By: #### LACT #### [facility] [address] [place] [address] Dr. Hemanth KerrCO2 [Moles/Vol]32.4 mmol/LCritically high21.0-32.0The [facility] HospitalComment on above:Performed By: #### LACT #### [facility] [address] [place] [address] Dr. Hemanth KerrCreatinine [Mass/Vol]0.65 mg/dLNormal0.55-1.02The [facility] Vincent Medical Centerment on above:Performed By: #### LACT #### [facility] [address] [place] [address] Dr. Saxena ChangEGFR-AF WALLISIAN>60Normal>=60The [facility] HospitalComment on above:Performed By: #### LACT #### [facility] [address] [address] [address] Hemanth WatsonGFR-NON AF WALLISIAN>60Normal>=60The [facility] HospitalComment on above:Performed By: #### LACT #### [facility] [address] [address] [address] Hemanth KerrGlucose [Mass/Vol]117 mg/dLCritically tshb84-746Hae [facility] HospitalComment on above:Performed By: #### LACT #### [facility] [address] [address] [address] Hemanth KerrPotassium [Moles/Vol]2.8 mmol/LCritically low3.5-5.1The [facility] HospitalComment on above:Performed By: #### LACT #### [facility] [address] [place] [address] Dr. Hemanth KerrSodium [Moles/Vol]135 mmol/LCritically xaj463-058Yif [facility] HospitalComment on above:Performed By: #### LACT #### [facility] [address] [place] [address] Dr. Hemanth KerrUrea nitrogen [Mass/Vol]8.0 mg/dLNormal7.0-18.0The [facility] HospitalComment on above:Performed By: #### LACT #### [facility] [address] [place] [address] Dr. Hemanth KerrUrea nitrogen/Creatinine [Mass ratio]12.3 mg/mgNoCincinnati Children's Hospital Medical CenterComment on above:Performed By: #### LACT #### [facility] [address] [place] [address] Dr. Hemanth Castelan MICROSCOPIC ONLYon [id number]O SEEN The [facility] HospitalComment on above:Performed By: #### LACT #### [facility] [address] [place] [address] Dr. Hemanth Erwincteria identified Cx Nom (U)INDICATEDNoCincinnati Children's Hospital Medical CenterComment on above:Performed By: #### LACT #### [facility] [address] [place] [address] Dr. Hemanth Rosas SEENNormalNONE SEENMetrohealth Cleveland Heights Medical CenterComment on above:Performed By: #### LACT #### [facility] [address] [place] [address] Dr. Hemanth KerrCrystals LM Nom (Urine sed)NONE SEENNormalNONE SEENMetrohealth Cleveland Heights Medical CenterComment on above:Performed By: #### LACT #### [facility] [address] [place] [address] Dr. Saxena ChangEpithelial cells LM Ql (Urine sed)FEWAbnormalNONE SEEN /RAREMetrohealth Cleveland Heights Medical CenterComment on above:Performed By: #### LACT #### [facility] [address] [place] [address] Dr. Hemanth MurilloUSMARIO SEENNormalNONE SEENKettering Memorial Hospital on above:Performed By: #### LACT #### [facility] [address] [place] [address] Dr. Hemanth VidalNtuktJLI6-2Khmera3-5WhoKettering Memorial Hospital on above:Performed By: #### LACT #### [facility] [address] [place] [address] Dr. Hemanth ShankarXabavFHS68-73GmkiukwgMGCU SEENKettering Memorial Hospital on above: Performed By: #### LACT #### [facility] [address] [place] [address] Dr. Hemanth Escalona QUANT HCGon 17-03-1771EIC QUANT66 mIU/mLNormalMetrohealth Cleveland Heights Medical CenterComtrinity health [facility] on above:Performed By: #### CMP #### [facility] [address] [place] [address] Dr. Hemanth Snider RANGESEE [facility] SystemComtr[facility] health [facility] on above: Result Comment: 5-50 0.2-1 WEEK 50-500 1-2 WEEKS 100-5,000 2-3 WEEKS 500-10,000 3-4 WEEKS 1,000-50,000 4-5 WEEKS 10,000-100,000 5-6 WEEKS 15,000-200,000 6-8 WEEKS 10,000-100,000 2-3 MONTHSPerformed By: #### CMP #### [facility] [address] [place] [address] Dr. Hemanth Toledo AUTO DIFFon [id number] #0.0 103/ulNormal0.0-0.1[facility] Medical CenterComment on above:Performed By: #### LACT #### [facility] [address] [place] [address] Dr. Hemanth KerrBasophils/100 WBC (Bld)0.6 %Normal0.2-2.0[facility] Comment on above:Performed By: #### LACT #### [facility] [address] [place] [address] Dr. Hemanth Pablo #0.1 103/ulNormal0.0-0.7The [facility] HospitalComment on above: Performed By: #### LACT #### [facility] [address] [place] [address] Dr. Hemanth Watsonosinophils/100 WBC (Bld)1.3 %Normal0.9-7.0[facility] Comment on above:Performed By: #### LACT #### [facility] [address] [place] [address] Dr. Hemanth Watsonrythrocyte distribution width (RBC) [Ratio]12.0 %Uyvcsx31.0-15.0 [facility] Medical CenterComment on above:Performed By: #### LACT #### [facility] [address] [place] [address] Dr. Hemanth KerrHematocrit (Bld) [Volume fraction]35.6 %Critically low36.0-48.0 [facility] Medical CenterComment on above:Performed By: #### LACT #### [facility] [address] [place] [address] Dr. Hemanth KerrHemoglobin (Bld) [Mass/Vol]12.4 g/nEJuytdg05.0-16.0[facility] Medical CenterComment on above:Performed By: #### LACT #### [facility] [address] [place] [address] Dr. Hemanth Granados #0.02 10e3/ulNormal0.00-0.03The [facility] HospitalComment on above:Performed By: #### LACT #### [facility] [address] [place] [address] Dr. Hemanth Granados %0.3 %Normal0.0-0.5The [facility] HospitalComment on above: Performed By: #### LACT #### [facility] [address] [place] [address] Dr. Hemanth Greco #1.9 103/ulNormal1.2-3.8The [facility] HospitalComment on above:Performed By: #### LACT #### [facility] [address] [place] [address] Dr. Hemanth Goetzhocytes/100 WBC (Bld)27.5 %Bntnnz81.5-60.0The [facility] HospitalComment on above:Performed By: #### LACT #### [facility] [address] [place] [address] Dr. Hemanth FerrariUAL DIFF REQNONormalThe [facility] HospitalComment on above: Performed By: #### LACT #### [facility] [address] [place] [address] Dr. Hemanth Murphy (RBC) [Entitic mass]29.6 ghGfavof16.7-34.0The [facility] HospitalComment on above:Performed By: #### LACT #### [facility] [address] [place] [address] Dr. Hemanth Murphy (RBC) [Mass/Vol]34.8 g/gJEcdxln75.9-35.2The [facility] HospitalComment on above:Performed By: #### LACT #### [facility] [address] [place] [address] Dr. Hemanth Murphy (RBC) [Entitic vol]85.0 fZTomrog04.0-99.0The [facility] HospitalComment on above:Performed By: #### LACT #### [facility] [address] [place] [address] Dr. Hemanth Chavira #0.4 103/ulNormal0.3-0.8The [facility] HospitalComment on above:Performed By: #### LACT #### [facility] [address] [place] [address] Dr. Hemanth Bazanocytes/100 WBC (Bld)6.3 %Normal1.7-12.0The [facility] Comment on above:Performed By: #### LACT #### [facility] [address] [place] [address] Dr. Hemanth Joseph #4.5 103/ulNormal1.4-6.5The [facility] HospitalComment on above:Performed By: #### LACT #### [facility] [address] [place] [address] Dr. Hemanth Posadasutrophils/100 WBC (Bld)64.0 %Tvusss07.0-75.0The [facility] HospitalComment on above:Performed By: #### LACT #### [facility] [address] [place] [address] Dr. Hemanth Chavezlet mean volume (Bld) [Entitic vol]10.6 fLNormal9.5-13.5The [facility] HospitalComment on above:Performed By: #### LACT #### [facility] [address] [place] [address] Dr. Hemanth KerrPLT247 103/srOvhxni815-727Zwt [facility] HospitalComment on above: Performed By: #### LACT #### [facility] [address] [place] [address] Dr. Hemanth KerrRBC4.19 106/ulCritically low4.20-5.40The [facility] HospitalComment on above:Performed By: #### LACT #### [facility] [address] [place] [address] Dr. Hemanth KerrWBC7.0 103/ulNormal4.0-11.0The [facility] HospitalComment on above: Performed By: #### LACT #### [facility] [address] [place] [address] Dr. Hemanth Connellyd-19 PCR (CVDTB)on 74-91-1616NRZG-CoV-2 (COVID-19) RNA ELMO+probe Ql (Unsp spec)Not detectedNormalNOT DETECTEDMetrohealth [facility] Medical Center Comment on above:Result Comment: This test is not yet approved or cleared by the [place] FDA. When there are no FDA-approved or cleared tests available, and other criteria are met, FDA can make tests available under an emergency access mechanism called an Emergency Use Authorization (EUA). The EUA for this test is supported by the [place] of Health and Human Service's (HHS's) declaration [...] consistent with SARS-CoV-2.Performed By: #### CMP #### [facility] [address] [place] [address] Dr. Hemanth Escalona QUANT HCGon 11-70-6295HPM [id number] mIU/mLNormalMetrohealth Cleveland Heights Medical CenterComment on above:Performed By: #### PREG #### [facility] [address] [place] [address] Dr. Hemanth Snider [facility] HospitalComment on above: Result Comment: 5-50 0.2-1 WEEK 50-500 1-2 WEEKS 100-5,000 2-3 WEEKS 500-10,000 3-4 WEEKS 1,000-50,000 4-5 WEEKS 10,000-100,000 5-6 WEEKS 15,000-200,000 6-8 WEEKS 10,000-100,000 2-3 MONTHSPerformed By: #### PREG #### [facility] [address] [place] [address] Dr. Hemanth Escalona QUANT HCGon 81-90-1403MVB NSGYY09679 mIU/mLNToledo HospitalComment on above:Performed By: #### PREG #### [facility] [id number] [address] Hemanth Snider [facility] HospitalComment on above: Result Comment: 5-50 0.2-1 WEEK 50-500 1-2 WEEKS 100-5,000 2-3 WEEKS 500-10,000 3-4 WEEKS 1,000-50,000 4-5 WEEKS 10,000-100,000 5-6 WEEKS 15,000-200,000 6-8 WEEKS 10,000-100,000 2-3 MONTHSPerformed By: #### PREG #### [facility] [address] [place], [place] [address] Dr. Hemanth Fairbanks PREG TVon [id number] PREG TVEXAMINATION: US PREG TV HISTORY: Routine [...] Electronically authenticated by: CHRISTINE SÁNCHEZ Date: 2022-08-14 16:22[facility] HospitalUS PREG TVon 64-91-3330JH PREG TVEXAMINATION: US PREG TV HISTORY: Missed [...] Electronically authenticated by: CHRISTINE SÁNCHEZ Date: 2022-07-27 17:04[facility] HospitalXR CHEST 1 Von [id number] CHEST 1 VPORTABLE CHEST X-RAY. INDICATION: Cough. COMPARISON: 10/11/2021 TECHNIQUE: Single AP portable chest radiograph. FINDINGS: TUBES AND LINES: None. LUNGS: Lungs are clear. PLEURA: No effusions or pneumothorax. HEART AND MEDIASTINUM: Within normal limits for portable technique. OSSEOUS STRUCTURES: No acute abnormality. IMPRESSION: No acute findings. Electronically authenticated by: FELIX WEBB Date: 2022-07-09 12:06[facility] HospitalCNPNon [id number] (HEMASA) NOE DURAN ([id number]) 1995 F Date Time Provider Department 12/12/21 KING SUAZO During your visit today, we recorded the following information about you: Angelia Almazan 12/12/2021 11:16 AM Signed Pleases sign pending new cbc order. Thanks, Angelia Almazan MA Allergies As of Date: 12/12/2021 (No Known Allergies) Date Reviewed: 12/12/2021 Reviewed by: Jasmin Zuñiga APRN.SOIL CHEMIST - Fully Assessed Reason for Visit: Lab Orders [168] Primary Visit Diagnosis:Iron deficiency anemia, unspecified iron deficiency anemia type [D50.9] Order(s):CBC + DIFF [SQCBCDIF] Order #: [id number] FUTURE Prescriptions as of 12/12/2021 - gabapentin (NEURONTIN) 400 mg capsule Take by mouth. - Polysaccharide Iron Complex 180 mg iron cap Take by mouth. - aspirin 81 mg cap Take 81 mg by mouth once daily. - ONDANSETRON HCL ORAL Take 4 mg by mouth as needed. Problem List As Of Date: 12/12/2021 (None) Encounter Status:Closed by JASMIN ZUÑIGA on 12/12/21[facility] CenterPNon [id number] (HEMASA) NOE DURAN ([id number]) 1995 F Date Time Provider Department 11/10/21 [...] B12 is slightly low. Options would be rubh-gio-bahmbde B12 tablets 2 mg daily or start [...] Status:Closed by JENNYFER DE LA O on 11/10/21[facility] HospitalCNOVSPon [id number] ([place]) Office ([place]) OSCARNEO RODRIGUEZ ([id number]) 1995 F Date Time Provider Department 11/08/21 [...] shortness of breath, and is seen at [place] emergency room. Labs revealed a hemoglobin of [...] mood/affect changes, r (more content not included)... NormalUniversity Hospitals [facility] Metabolic Panelon 58-20-9492Nxogwwe [Mass/Vol]3.6 g/dLLow3.9-4.9CGalion Hospital on above:Performed By: #### SERFOL, IRON, B12, FERR #### [facility] [address], [place] [address] FDH [Catalytic activity/Vol]79 U/LCxvrei48-954ZpccnexqyToledo Hospital on above:Performed By: #### SERFOL, IRON, B12, FERR #### [facility] [address], [place] [address] YRG [Catalytic activity/Vol]8 U/LNormal7-38[facility] on above:Performed By: #### SERFOL, IRON, B12, FERR #### [address] [address] Avhme gap [Moles/Vol]9 mmol/LNormal9-18[facility] Comment on above:Performed By: #### SERFOL, IRON, B12, FERR #### [address] [address] UEY [Catalytic activity/Vol]13 U/JSnbxvh43-97QitvuiywxCleveland Clinic Lutheran HospitalComment on above:Performed By: #### SERFOL, IRON, B12, FERR #### [address] [address] Ndqcqjnlt [Mass/Vol]0.2 mg/dLNormal0.2-1.3CUniversity Hospitals Geauga Medical Center Comment on above:Performed By: #### SERFOL, IRON, B12, FERR #### [address] [address] Kmatdcn [Mass/Vol]9.3 mg/dLNormal8.5-10.2CUniversity Hospitals Geaug[facility] Center Comment on above:Performed By: #### SERFOL, IRON, B12, FERR #### [address] [address] Gkxaaqdt [Moles/Vol]102 mmol/GPxkywu12-106AfqyyxdwpCleveland Clinic [facility] Hospital Comment on above:Performed By: #### SERFOL, IRON, B12, FERR #### [address] [address] WI5 [Moles/Vol]23 mmol/NAwuqlc11-96WdmebenynCleveland Clinic Lutheran HospitalComtrinity health [facility] hospital on above:Performed By: #### SERFOL, IRON, B12, FERR #### [address] [address] Mhhpwlbpqt [Mass/Vol]0.55 mg/dLLow0.58-0.96[facility] on above:Performed By: #### SERFOL, IRON, B12, FERR #### [facility] [address] [place], [place] [id number] [phone]- Amer.>60NormalClevelColumbus Regional Healthcare SystemComment on above:Performed By: #### SERFOL, IRON, B12, FERR #### [facility] [address] [place] [id number] [phone]-All Other Races>60NormalClevelColumbus Regional Healthcare SystemComment on above:Result Comment: eGFR (Estimated GFR) Units [...] By: #### SERFOL, IRON, B12, FERR #### [facility] [address] [id number] [phone] [Mass/Vol]96 mg/mGXkzaxt08-75ZjrmgluhcCleveland Clinic [facility] Hospital Comment on above:Result Comment: The [place] Diabetes Association (ADA) provides guidance for cutoff [...] Standards of Medical Care in Diabetes 2016, [place] Diabetes Association. Diabetes Care. 2016.39(Suppl 1).Performed By: #### SERFOL, IRON, B12, FERR #### [address] [address] Gyqpsiawm [Moles/Vol]3.3 mmol/LLow3.7-5.1CUniversity Hospitals Geauga Medical Center Comment on above:Performed By: #### SERFOL, IRON, B12, FERR #### [address] [address] Ararvni [Mass/Vol]6.3 g/dLNormal6.3-8.0[facility] Comment on above:Performed By: #### SERFOL, IRON, B12, FERR #### [address] [address] Qzmjmh [Moles/Vol]134 mmol/BFah858-883MehfvlsllCleveland Clinic Lutheran Hospital Comment on above:Performed By: #### SERFOL, IRON, B12, FERR #### [address] [address] Wvkt nitrogen [Mass/Vol]4 mg/dLLow7-21[facility] Comment on above:Performed By: #### SERFOL, IRON, B12, FERR #### [address] [address] Ltllmzxhoj 99-52-8035Cnnlyctr [Mass/Vol]203.0 ng/mMPdvwub81.7-205.1 [facility] HospitalComment on above:Performed By: #### SERFOL, IRON, B12, FERR #### [address] [address] Zgdmjm, Serumon 05-18-3633Pxretf [Mass/Vol]8.5 ng/mLNormal>4.7 [facility] HospitalComment on above:Performed By: #### SERFOL, IRON, B12, FERR #### [address] [place] [address] Rjyb and TIBCon 42-73-5750Ffwe [Mass/Vol]93 ug/mFHtyawg82-231 [facility] HospitalComment on above:Performed By: #### SERFOL, IRON, B12, FERR #### [address] [address] PMGK098 ug/eTKuia696-377ZirldozuhCleveland Clinic Lutheran HospitalComment on above: Performed By: #### SERFOL, IRON, B12, FERR #### [address] [address] Vodoiyazwtn Ngljbexh08 %Ozmepe35-33TdqbucvltCleveland Clinic Lutheran HospitalComment on above:Performed By: #### SERFOL, IRON, B12, FERR #### [address] [id number] [phone] CBCDIF (for [facility] use only)on 37-04-1212Zlh Baso<0.03Normal <0.11CUniversity Hospitals Geauga Medical CenterAbs Mono0.57 k/uLNormal<0.87[facility] HospitalAbs Neut4.67 k/uLNormal1.45-7.50[facility] HospitalAbsolute nRBC <0.01Normal<0.01[facility] HospitalBasophils/100 WBC (Bld)0.3 %Normal [facility] HospitalDTYPEAuto DiffNormalCUniversity Hospitals Geauga Medical Center Eosinophils (Bld) [#/Vol]0.05 10*3/uLNormal<0.46[facility] Eosinophils/100 WBC (Bld)0.8 %NormalCleveland Clinic Lutheran HospitalErythrocyte distribution width (RBC) [Ratio]29.9 %High11.5-15.0[facility] Hematocrit (Bld) [Volume fraction]32.6 %Low36.0-46.0[facility] Hemoglobin (Bld) [Mass/Vol]10.1 g/dLLow11.5-15.5CUniversity Hospitals Geaug[facility] Medical Center Lymphocytes (Bld) [#/Vol]1.25 10*3/uLNormal1.00-4.00[facility] Lymphocytes/100 WBC (Bld)19.1 %NormalCleveland Clinic Lutheran HospitalMCH25.1 pGLow 26.0-34.0[facility] GeneralHC (RBC) [Mass/Vol]31.0 g/bVNqqohr95.5-36.0 [facility] HospitalMCV (RBC) [Entitic vol]81.1 kKWkjlvq36.0-100.0 [facility] HospitalMonocytes/100 WBC (Bld)8.7 %NormalCleveland Clinic Lutheran HospitalNeutrophils/100 WBC (Bld)71.1 %NormalCleveland Clinic Lutheran HospitalNRBCs0.0 /100 AHMSwsxlu1CzzkeuujeCleveland Clinic Lutheran HospitalPlatelet mean volume (Bld) [Entitic vol]10.3 fLNormal9.0-12.7CUniversity Hospitals Geauga Medical CenterPlatelets (Bld) [#/Vol]223 10*3/kSLcvtxv890-257JejrwjzapToledo Hospital on above:Result Comment: Result checked and verified Sample checked for a clot.RBC (Bld) [#/Vol]4.02 10*6/uLNormal3.90-5.20[facility] HospitalWBC (Bld) [#/Vol]6.56 10*3/uLNormal3.70-11.00[facility] HospitalReticulocyteon 88-49-0480Stn Retic0.140 M/uLHigh0.0180-0.1000[facility] on above:Performed By: #### SERFOL, IRON, B12, FERR #### [facility] [employer] [address] [place] [id number]%3.5 %High0.4-2.0[facility] on above: Performed By: #### SERFOL, IRON, B12, FERR #### [facility] [employer] [address] [place] [address] [place] B12on 76-24-2492Euswwnfix (Vitamin B12) [Mass/Vol]218 pg/mL Zwm648-3536TyfvemzyvGalion Hospital on above:Performed By: #### SERFOL, IRON, B12, FERR #### [facility] [address] [place], [place] [address] YDTbi 44-05-8835Khkautfmkfz distribution width (RBC) [Ratio]14.7 % High11.8 - 14.4 %[facility]- [place], KYHematocrit (Bld) [Volume fraction]36.0 %Low 36.3 - 47.1 %[facility]- [place], KYHemoglobin (Bld) [Mass/Vol]10.9 g/dLLow11.9 - 15.1 g/dLMercy Health St. [facility]- [place], KYInterpretation and review of laboratory results AbnormalMercy Health St. [facility]- [place], KYMCH (RBC) [Entitic mass]26.2 pg25.2 - 33.[address] [facility]- [place], KYMCHC (RBC) [Mass/Vol]30.3 g/dL28.4 - 34.8 g/dLMercy Health St. [facility]- [place], [place] MCV (RBC) [Entitic vol]86.5 fL82.6 - 102.9 fLFirelands Regional Medical Center Health- [place], KYPlatelet mean volume (Bld) [Entitic vol]10.8 fL8.1 - 13.[address] [facility]- [place], KYPlatelets (Bld) [#/Vol]328 10*3/uLFirelands Regional Medical Center [facility]- [place], KYRBC (Bld) [#/Vol]4.16 10*6/uL3.95 - 5.11 m/uLFirelands Regional Medical Center [facility]- [place], KYWBC (Bld) [#/Vol]0.0 10*3/uL0.0 per 100 WBCFirelands Regional Medical Center Health- [place], KYWBC (Bld) [#/Vol]5.7 10*3/uLFirelands Regional Medical Center [facility]- [place], KYComprehensive Metabolic Panelon 85-60-6339Hqvftyt [Mass/Vol]3.4 g/dLLow3.5 - 5.2 g/dLMercy Health St[address] [facility]- [place], KYAlbumin/Globulin [Mass ratio]1.5 {ratio}[facility]- [place], KYALP [Catalytic activity/Vol]40 U/L35 - 104 U/LMercy Health- [place], KYALT [Catalytic activity/Vol]12 U/L5 - 33 U/LMercy Health- [place], KYAnion gap [Moles/Vol]9 mmol/L9 - 17 mmol/LMercy Health- [place], KYAST [Catalytic activity/Vol]12 U/L<32[facility]- [place], KYBilirubin Ql (U)<0.10Low0.3 - 1.2 mg/dLMercy Health- [place], KYBun/Cre Btspk40AajfRqnjo Health- [place], KYCalcium [Mass/Vol]9.3 mg/dL8.6 - 10.4 [...] 20 mg/dLMercy Health- [place], KYHCG Qualitative, Serumon 12-61-5227oBZ QualNegativeNEGATIVEMer Health- [place], KYComment on above:Specimens with hCG levels near the threshold of the test (25 mIU/mL) may give a negative or indeterminate result. In such cases, another test should be performed with a new specimen in 48-72 hours. If early is suspected clinically in this setting, correlation with quantitative serum b-hCG level is suggested. [employer] has confirmed the use of plasma for this test. This has not been cleared or approved by the U.S. Food and Drug Administration. The FDA has determined that such clearance is not necessary. HIV Screenon 72-04-0844LLD Ag/AbNONREACTIVENew [place], [place] Comment on above:No laboratory evidence of HIV infection. If acute HIV infection is suspected, consider testing for HIV-1 RNA. Hepatitis Panel, Acuteon 79-54-7200WXA IgM IA Qn (S)NONREACTIVENONREKing's Daughters Medical Center [place], ILHep B Core Ab, IgMNONREACTIVENew [place], [place] Hepatitis B Surface AgNONREACTIVEMarietta Memorial Hospital, ILHepatitis C Ab REACTIVEAbnormEating Recovery Center [facility]al [facility], ILComment on above: The hepatitis C procedure used [...] Health Department Interpretation and review of laboratory resultsAbnoBalt[place], [place] Metabolic Panelon 07-43-1471KDG/1.73 sq M predicted among non-blacks MDRD (S/P/Bld) [Vol rate/Area][place], KYComnelson on above:Stage 1: Some kidney damage [...] body mass. Additional eGFR calculator available at: http://www.[employer].Need[employer] AS/multiple_crcl_2012.htm Microscopic Urinalysison 63-93-6969Kfwzhmomw, UANOT REPORTEDNoneMercy Health- [place], KYBacteria, UANOT REPORTEDNoneMercy [...] Health- [place], [place] Urinalysis Reflex to Cultureon 88-24-7354Hpdhzgxoa UrineNegativeNEGATIVEMercy Health- [place], KYColor, UAYELLOWYELLOWMercy Health- [place], KYGlucose, UrNegative NEGATIVEMercy Health- [place], KYInterpretation and review of laboratory results AbnormalMercy Health- [place], KYKetones Ql (U)NegativeNEGATIVEMercy Health- [place], [place] Leukocyte esterase Test strip Ql (U)NegativeNEGATIVEMercy Health- [place], KYNitrite, UrineNegativeNEGATIVEMercy Health- [place], KYpH, UA6.5[facility]- [place], KYProtein (U) [Mass/Vol]NegativeNEGATIVEMercy Health- [place], KYSpecific Arrey, UA1.025High [facility]- [place], KYTurbidity UACLEARCLEARMercy Health- [place], KYUrinalysis CommentsNOT REPORTEDMercy Health- [place], KYUrine HgbNegativeNEGATIVEMercy Health- [place], KYUrobilinogen, UrineNormalNormalMercy Health- [place], KYED Clinical Summaryon [id number] Clinical Summary [facility] [address] [place] [address] ED Clinical Summary Person Information Name: Kathryn Duran/Kirsty Age: 25 Years : 1995 Sex: Female PCP: Marital Status: Single Phone: Race: White Ethnicity: Not or Language: Lithuanian Visit Reason: Drug withdrawal; Drug withdrawal Acuity: 3 Enc Type: Emergency Med Service: Emergency Medicine Arrival: 03/16/2020 20:10:45 Discharge: 03/17/2020 02:12:00 LOS: 000 06:02 Checkin: 03/16/2020 20:10:45 Checkout: 03/17/2020 02:12:00 Dispo Type: Home or Self Care Address: [address] [place] [id number] Provider Notes: Diagnosis: 1:Affective disorder; 2:Drug usage [...] range between ( 27.2 and 40.8 ) [place] Auto: 11.4 % -- Normal range between [...] range between ( 36.0 and 46.0 ) [place] Absolute: 1.5 x10 MCH: 27.4 pg -- [...] 20:20:41 Follow up: With: Address: When: [facility] In [place], [place] Within 1 to 2 days Discharge Orders: Discharge Patient 03/17/20 1:45:00 EDT, Discharge to Home, Self Patient Education Information: Understanding Methamphetamine Abuse and Addiction; Treating Affective (Mood) Disorders [facility] Poison Help line: . [facility] Hotline: [place] Tobacco Quit Line: [place], [place]) [address]: [phone] [place], [place]) [address]: [phone] [facility] [address] [place], [place]: [phone] [facility] County HospitalhCG Quantitativeon 40-74-4427Bsyc hCG Qnt1.7 mIU/mLNormal0.0-4.9BHolzer Health SystemComment on above:Result Comment: 0.0 - 4.9 Negative for 5.0 - 25.0 Indeterminant for : Suggest repeat in 72 hours. >25.0 Positive for PregnancyPerformed By: #### HCG ####[facility] [place] [address].UA Microscp Aon 56-08-3382QF Hyline Cast Qual>20AbnormalNegativeBlFlower HospitalComment on above:Performed By: #### CD:[id number] ####[address] [address]LX MucusPresentAbnormalAbsentDelaware County HospitalComment on above:Performed By: #### CD:[id number] ####[address] [address]PD RBC Quant12 /HPFHigh0-5 [facility] County HospitalComment on above:Performed By: #### CD:[id number] ####[address] [address]NR Squepi Cells Quant6 /HPFNormal0-29Del[facility] County HospitalComment on above: Performed By: #### CD:[id number] ####[address] [address]EM WBC Quant7 /HPFHigh0-5BHolzer Health System Comment on above:Performed By: #### CD:[id number] ####[address] [address].eGFRon 92-36-8685aDHU AA52 mL/min/1.73m?Low>=60Del[facility] County HospitalComment on above:Result Comment: Result = 0-14.9 mL/min/1.73 m2 Kidney failure or Dialysis Result = 15-29 mL/min/1.73 m2 Severe decrease in GFR Result = 30-59 mL/min/1.73 m2 Moderate decrease in GFR Result >= 60 mL/min/1.73 m2 Normal or increased GFRPerformed By: #### EGFR #### [address] [address]iYFZ Non-AA43 mL/min/1.73m?Low>=60Del[facility] County HospitalComment on above:Result Comment: Result = 0-14.9 [...] medication dosing. Performed By: #### EGFR #### [address] [address]OMK w/ Diffon 80-74-6150Kostgpsumnd distribution width (RBC) [Ratio]15.9 %High11.6-14.8BHolzer Health SystemComment on above: Performed By: #### CBC #### [address] [address]Pvrzlscebp (Bld) [Volume fraction]37.5 %Pwtivv16.0-46.0 [facility] County HospitalComment on above:Performed By: #### CBC #### [address] [address]Tkwbflkuiq (Bld) [Mass/Vol]12.5 g/hQQznxet98.0-16.0Del[facility] County HospitalComment on above:Performed By: #### CBC #### [address] [address]DFN (RBC) [Entitic mass]27.4 uqYxoozu45.0-35.0Del[facility] County HospitalComment on above:Performed By: #### CBC #### [address] [address]BSYG (RBC) [Mass/Vol]33.2 %Plpzld95.0-37.0Del[facility] County HospitalComment on above:Performed By: #### CBC #### [address] [address]ZYM (RBC) [Entitic vol]82.4 gSXkyydg63.0-100.0Del[facility] County HospitalComment on above:Performed By: #### CBC #### [address] [address]Alsjhlmh mean volume (Bld) [Entitic vol]9.4 fLNormal6.7-10.6 [facility] County HospitalComment on above:Performed By: #### CBC #### [address] [address]Urcthrgtf (Bld) [#/Vol]307 x10*3/mdNMluzzm922-337Gvlsgpypi Valley Health SystemComment on above:Performed By: #### CBC #### [address] [address]QKC (Bld) [#/Vol]4.55 x10*6/mcLNormal3.80-5.20[facility] Hospital SystemComment on above:Performed By: #### CBC #### [address] [address]VJO (Bld) [#/Vol]12.9 x10*3/mcLHigh4.5-11.0Del[facility] County HospitalComment on above:Performed By: #### CBC #### [address] [address]DHTzr 29-25-1621Ntnvqib [Mass/Vol]5.2 g/dLHigh3.2-4.9BHolzer Health SystemComment on above:Result Comment: [facility] Laboratory updated the methodology used for albumin testing on 04/24/18. Albumin measurement was performed using a bromcresol purple dye-binding assay.Performed By: #### COMP #### [address] [address]Kvywdbm/Globulin [Mass ratio]1.5 {ratio}Normal1.1-2.2BHolzer Health SystemComment on above:Performed By: #### COMP #### [address] [address]Dfk Phos47 IU/PIqdhrx04-24UvvaqecocDelaware County HospitalComment on above:Performed By: #### COMP #### [address] [address]CPP [Catalytic activity/Vol]19 U/AEwknyu58-37PgvehojboDelaware County HospitalComment on above:Performed By: #### COMP #### [address] [address]Qxahc gap [Moles/Vol]22 mmol/LHigh7-17Del[facility] County HospitalComment on above:Performed By: #### COMP #### [address] [address]SIS [Catalytic activity/Vol]31 U/MXqpdxy40-05RqqcggnuhDelaware County HospitalComment on above:Performed By: #### COMP #### [address], [place] [address]Etoy Total1.4 mg/dLHigh0.3-1.2BHolzer Health System Comment on above:Performed By: #### COMP #### [address], [place] [address]Qerclnv [Mass/Vol]10.2 mg/dLNormal8.5-10.3BHolzer Health SystemComment on above:Performed By: #### COMP #### [address], [place] [address]Wvvgguvn [Moles/Vol]100 mmol/WRnlwwv52-337DjptgvcchDelaware County HospitalComment on above:Performed By: #### COMP #### [address] [address]HD5 [Moles/Vol]19 mmol/CTib10-96NdbnuhztmDelaware County Hospital Comment on above:Performed By: #### COMP #### [address], [place] [address]Zlejxoubot [Mass/Vol]1.47 mg/dLHigh0.44-1.03Del[facility] County HospitalComment on above:Performed By: #### COMP #### [address] [place] [address]Dohijws [Mass/Vol]85 mg/hFDkfbzj43-97IokpqoyulDelaware County HospitalComment on above:Performed By: #### COMP #### [address] [place] [address]Imtwcpqyf [Moles/Vol]3.7 mmol/LNormal3.4-4.8BHolzer Health SystemComment on above:Performed By: #### COMP #### [address] [address]Nawjxxd [Mass/Vol]8.7 g/dLHigh6.5-8.1BHolzer Health SystemComment on above:Performed By: #### COMP #### [address] [address]Yrfhxr [Moles/Vol]137 mmol/NCbvkog457-438WmfuyvvauDelaware County HospitalComment on above:Performed By: #### COMP #### [address] [address]Qxex nitrogen [Mass/Vol]25 mg/dLNormal8-26Del[facility] County HospitalComment on above:Performed By: #### COMP #### [address] [address]Wzbu nitrogen/Creatinine [Mass ratio]17.0 mg/prPudcri65.0-20.0 [facility] HospitalComment on above:Performed By: #### COMP #### [address] [address]IDGsb 80-68-5725Jwkimorq Xovzkxontaers336 IU/JIwwa75-918 [facility] County HospitalComment on above:Performed By: #### CP #### [address] [address]Yqah Autoon 38-80-9996Ozle Absolute0.0 x10*3/mcLNormal0.0-0.2 [facility] County HospitalComment on above:Performed By: #### .Automated Diff #### [address] [address]Qjpkdqpws/100 WBC (Bld)0.4 %Normal0.0-1.5BHolzer Health SystemComment on above:Performed By: #### .Automated Diff #### [address] [address]Yjj Absolute0.0 x10*3/mcLNormal0.0-0.4BHolzer Health SystemComment on above:Performed By: #### .Automated Diff #### [address] [address]Ltbyejqcvko/100 WBC (Bld)0.1 %Normal0.0-5.4BWilson Memorial Hospital SystemComment on above:Performed By: #### .Automated Diff #### [address] [address]Reuppnllxuo (Bld) [#/Vol]1.4 x10*3/mcLNormal1.0-4.8BWilson Memorial Hospital SystemComment on above:Performed By: #### .Automated Diff #### [address] [address]Nxbddmfgjdy/100 WBC (Bld)10.8 %Low27.2-40.8BHolzer Health SystemComment on above:Performed By: #### .Automated Diff #### [address] [address]Snzh Absolute1.5 x10*3/mcLHigh0.1-1.1BWilson Memorial Hospital SystemComment on above:Performed By: #### .Automated Diff #### [address] [address]Ygxuqdhke/100 WBC (Bld)11.4 %Normal3.7-11.9BWilson Memorial Hospital SystemComment on above:Performed By: #### .Automated Diff #### [address] [address]Mjtycs Xnccnuog32.0 x10*3/mcLHigh1.8-7.7BWilson Memorial Hospital SystemComment on above:Performed By: #### .Automated Diff #### [address] [address]Zzvppa Auto77.3 %High47.2-70.8BHolzer Health System Comment on above:Performed By: #### .Automated Diff #### [address] [address]NU Note-Nursingon 79-94-7186XY Note-NursingLab called about add ons Electronically signed by Barbara Holman Oleksandr 03/16/20 20:49 EDTNoOur Lady of Mercy HospitalED Note-Physicianon 26-74-2025YF Note-PhysicianChief Complaint I want to detox. I [...] that she has residential set up at [facility] in [place], [place] but she has to detox first. [...] as well. She was seen by Alonso, manager social services who has arranged for her to go to [facility] tomorrow as patient is interested in treatment. Verbally contracted to safety and filled out a safety plan. Alonso withsocial work spoke with online advertising director, Jelena who will arrange for further follow-up when they arrive tomorrow. Family is agreeable with plan. Patient has good support. They will return if any changes of symptoms or concern. Silvia Castañeda scribing for and in the presence of Dr. Cornell. Scribe Attestation: The information in this document, created by the medical accountant for me, accurately reflects the services I [...] High Lymph Auto 03/16/20 20:39 10.8 Low [place] Auto 03/16/20 20:39 11.4 Eos Auto 03/16/20 20:39 0.1 Basophil Auto 03/16/20 20:39 0.4 Neutro Absolute 03/16/20 20:39 10.0 High Lymph Absolute 03/16/20 20:39 1.4 [place] Absolute 03/16/20 20:39 1.5 High Eos Absolute [...] signed by Lima Cornell MD 03/17/2020 04:16 EDTNoOur Lady of Mercy HospitalEthanolon 15-62-1552Qgcurhl [Mass/Vol]mg/dLNormal<=9BHolzer Health SystemComment on above:Result Comment: To convert mg/dL to g/dL, divide result by 1,000. Legal limit of intoxication is 80mg/dL (0.08 g/dL).Performed By: #### ALC #### [address] [address]JJ w Culture if Indon 65-92-9587Jhrxt (U)AmberNoOur Lady of Mercy HospitalComment on above:Performed By: #### UCI #### [address] [address]Pchcetg (U) [Mass/Vol]NegativeNormalNegUniversity Hospitals Ahuja Medical CenterComment on above:Performed By: #### UCI #### [address], [place] [address]Bpnkbhn Ql (U)20 mg/dLAbnormalNegUniversity Hospitals Ahuja Medical CenterComment on above:Performed By: #### UCI #### [address], [place] [address]CT BloodSmallAbnormalNegUniversity Hospitals Ahuja Medical Center Comment on above:Performed By: #### UCI #### [address] [address]YR ClarityCloudyNormDoctors HospitalComment on above:Performed By: #### UCI #### [address], [place] [address]YK Leukocyte EsteraseTraceAbnormilNegUniversity Hospitals Ahuja Medical CenterComment on above:Performed By: #### UCI #### [address] [place] [address]JV NitriteNegativeNoreplaced by [facility] ansonNegUniversity Hospitals Ahuja Medical Center Comment on above:Performed By: #### UCI #### [address] [place] [address]WY pH5.4Fjtyau2.5 - 7.8BlanCleveland Clinic Euclid HospitalComment on above:Performed By: #### UCI #### [address], [place] [address]BQ Oycgdac430 mg/dLAbnormalNegUniversity Hospitals Ahuja Medical CenterComment on above:Performed By: #### UCI #### [address], [place] [address]OE SourceClean CatchNormDoctors HospitalComment on above:Performed By: #### UCI #### [address] [address]IO Spec Grav1.820Nfwmex1.003-1.035Del[facility] County HospitalComment on above:Performed By: #### UCI #### [address] [address]TB Urobilinogen0.2 mg/dLNormal0.2 - 1.0F[facility] City Hospital SystemComment on above:Performed By: #### UCI #### [address] [address]Znzygoihheam Qn (U)SmallAbnormalNegativeFostoria City Hospital SystemComment on above:Performed By: #### UCI #### [address] [address]YZN Compon 90-41-3466Jlhjnpxova [Mass/Vol]mg/dLNormalDelaware County HospitalComment on above:Performed By: #### CD:[id number] #### [address] [address]Sk Amph ScrnPositiveAbnormalNEG = <1000Del[facility] County HospitalComment on above:Result Comment: This unconfirmed positive screening result is to be used for medical treatment purposes only. Unconfirmed screening results must not be used for non-medical purposes. (e.g. employment testing, legal testing).Performed By: #### CD:[id number] #### [address] [address]Fl Anastasia ScrnNegativeNormalNEG = <200F[facility] City Hospital SystemComment on above:Performed By: #### CD:[id number] #### [address], [place] [address]Jv Benzodia ScrnNegativeNormalNEG = <200F[facility] City Hospital SystemComment on above:Performed By: #### CD:[id number] #### [address], [place] [address]Rv Cannab ScrnNegativeNormalNEG = <50Fost[facility] City Hospital SystemComment on above:Performed By: #### CD:[id number] #### [address] [place] [address]Fs Cocaine ScrnNegativeNormalNEG = <300Del[facility] County HospitalComment on above:Performed By: #### CD:[id number] #### [address] [address]Fv Methadone ScnNegativeNormalNEG = <300Del[facility] County HospitalComment on above:Performed By: #### CD:[id number] #### [address] [address]Vr Opiate ScrnNegativeNormalNEG = <300Del[facility] County HospitalComment on above:Performed By: #### CD:[id number] #### [address] [address]Os Oxy ScreenNegativeNormalNEG = <100Del[facility] County HospitalComment on above:Performed By: #### CD:[id number] #### [address] [address]Uw Oxy Scrn Qnt54 ng/mLNormal<=99[facility] System Comment on above:Performed By: #### CD:[id number] #### [address] [address]Zn PCP ScrnNegativeNormalNEG = <25Del[facility] County HospitalComment on above:Performed By: #### CD:[id number] #### [address] [address]PQ pH5.2Mklsgt3.5 - 7.8BHolzer Health SystemComment on above:Performed By: #### CD:[id number] #### [address] [address]VK Spec Grav1.562Wbqsqu7.003-1.035Del[facility] County HospitalComment on above:Performed By: #### CD:[id number] #### [address] [address]RFH Screenon 01-07-9361XKG Ag/AbNONREACTIVENONREACTIVEMercy Health St. Charles Hospital- [place], KYComment on above:No laboratory evidence of HIV infection. If acute HIV infection is suspected, consider testing for HIV-1 RNA. HCG, Quantitative, Pregnancyon 50-10-3063mIV Krvpc74748Iswg<5 IU/LMercy Health- [place], ILComment on above: Non-preg premeno <=5 Postmeno <=8 Male <=3 If HCG results do not concur with clinical observations, additional testing to confirm results is recommended. Elevated results not associated with may be found in patients with other diseases such as tumors of the germ cells (testis, ovaries, etc.), bladder, pancreas, stomach, lungs, and liver. Interpretation and review of laboratory resultsAbnormalMercy Health- [place], [place] Hepatitis C Antibodyon 66-60-2335Rckkpnjbj C AbREACTIVEAbnormalNONREACTIVEMer Health- [place], ILComment on above: The hepatitis C procedure used [...] resultsAbnormalMercy Health- [place], [place] TYPE AND SCREENon 09-37-7345AUR/RhPositiveMercy Health- [place], KYUrine Drug Screen, Comprehensiveon 05-00-2817Lxzoftrgfjf Screen, UrNegativeNEGATIVE [facility]- [place], KYBarbiturate Screen, UrNegativeNEGATIVEMercy Health- [place], [place] Benzodiazepine Screen, UrineNegativeNEGATIVEMercy Health- [place], KYBuprenorphine UrineNegativeNEGATIVEMercy Health- [place], KYCannabinoid Scrn, UrNegativeNEGATIVE [facility]- [place], KYCocaine Metabolite, UrineNegativeNEGATIVEMercy Health- [place], KYMDMA, UrineNOT REPORTEDNEGATIVEMercy Health- [place], KYMethadone Screen, Urine NegativeNEGATIVEMercy Health- [place], KYMethamphetamine, UrineNegativeNEGATIVEMercy Health- [place], KYOpiates, UrineNegativeNEGATIVEMercy Health- [place], KYOxycodone Screen, UrNegativeNEGATIVEMercy Health- [place], KYPhencyclidine, UrineNegative NEGATIVEMercy Health- [place], KYPropoxyphene, UrineNegativeNEGATIVEKettering Health [facility] Memorial, KYTest InformationNOT [facility] [place], CORINATricyclic Antidepressants, UrineNegativeNEGATIVEKettering Health Greene Memorial, CORINAComment on above:Drug screen results are to be used for medical purposes only. All positive results are unconfirmed. Testing for employment or legal uses should be sent to a reference laboratory for confirmation. HCG, Quantitative, Pregnancyon 51-30-5283oFX Kgmad48459Ofbq<5 IU/LMercy [facility], ILComment on above: Non-preg premeno <=5 Postmeno <=8 Male <=3 If HCG results do not concur with clinical observations, additional testing to confirm results is recommended. Elevated results not associated with may be found in patients with other diseases such as tumors of the germ cells (testis, ovaries, etc.), bladder, pancreas, stomach, lungs, and liver. Interpretation and review of laboratory resultsAbnoBaltimore, KYHIV Screenon 61-45-1647QBE Ag/AbNONREACTIVENONREKing's Daughters Medical Center [place], [facility] on above:No laboratory evidence of HIV infection. If acute HIV infection is suspected, consider testing for HIV-1 RNA. Hepatitis C Antibodyon 05-29-4254Pazigohch C AbREACTIVEAbnoDenver Health Medical Center, [facility] on above: The hepatitis C procedure used [...] Health Department Interpretation and review of laboratory resultsAbnoMetroHealth Parma [facility], [place] PROFILE Ion 47-77-5150Monzriaoz (Bld) [#/Vol]10*3/[facility], KYBasophils/100 WBC (Bld)1 %0 - 2 %[facility], KYDifferential TypeNOT [facility] [place], CORINAEosinophils (Bld) [#/Vol]0.09 10*3/uLKettering Health Greene Memorial, KYEosinophils/100 WBC (Bld)2 %1 - 4 %[place], KYErythrocyte distribution width (RBC) [Ratio]15.7 %High11.8 - 14.4 %[place] Hematocrit (Bld) [Volume fraction]36.5 %36.3 - 47.1 %[place], [place] Hemoglobin (Bld) [Mass/Vol]11.2 g/dLLow11.9 - 15.1 g/dLO'Fallon, [place] Hepatitis B Surface AgNONREACTIVENONREACTIVEKettering Health [facility], ILImmature granulocytes (Bld) [#/Vol]0 %0[place], KYImmature granulocytes (Bld) [#/Vol]10*3/uLO'Fallon, KYInterpretation and review of laboratory resultsAbnormalO'[place], KYLymphocytes (Bld) [#/Vol]1.98 10*3/uLKettering Health Greene Memorial, ILLymphocytes/100 WBC (Bld)46 %High24 - 43 %[place], KYMCH (RBC) [Entitic mass]25.6 pg25.2 - 33.5 pgO'Fallon, KYMCHC (RBC) [Mass/Vol]30.7 g/dL28.4 - 34.8 g/dLO'Fallon, KYMCV (RBC) [Entitic vol] 83.3 fL82.6 - 102.9 fLO'Fallon, KYMonocytes (Bld) [#/Vol]0.37 10*3/uL [facility], ILMonocytes/100 WBC (Bld)9 %3 - 12 %[place], [place] Platelet mean volume (Bld) [Entitic vol]11.6 fL8.1 - 13.5 fLO'Fallon, [place] Platelets (Bld) [#/Vol]NOT REPORTEDKettering Health [facility] Memorial, ILPlatelets (Bld) [#/Vol] 196 10*3/uLKettering Health Greene Memorial, ILRBC (Bld) [#/Vol]4.38 10*6/uL3.95 - 5.11 m/uL [place], KYRBC morphology finding Nom (Bld)NOT REPORTEDMercy Health St. [facility] Hospital- [place], KYRubella virus IgG Ql (S)286.1IU/mLKettering Health [facility], [facility] on above: REFERENCE RANGE: <5.0 NON-REACTIVE (non-immune) 5.0 TO 9.9 EQUIVOCAL >=10.0 REACTIVE (immune) Segmented neutrophils/100 WBC (Bld)42 %36 - 65 %[facility], ILSe Absolute1.75[facility], KYT. pallidum, IgGNONREACTIVENONREACTIVEKettering Health [facility], ILComtrinity health [facility] on above: T. pallidum antibodies are not detected. There is no serological evidence of infection with T. pallidum (early primary syphilis cannot be excluded). Retest in 2-4 weeks if syphilis is clinically suspect. WBC (Bld) [#/Vol]4.2 10*3/uLK[facility]tering Health [facility], ILWBC (Bld) [#/Vol]0.0 10*3/uL0.0 per 100 WBCKettering Health Greene [facility], ILW MorphologyNOT REPORTEDKettering Health [facility], [place] TYPE AND SCREENon 87-57-0713VZV/RhPositiveMercy Health St[facility]- [place], [place]Urine Drug Screen, Comprehensiveon 03-67-7285Fjrcicxqocc Screen, UrNegativeNEGATIVE [facility]- [place], [place]Barbiturate Screen, UrNegativeNEGATIVEMercy Health- [place], [place] Benzodiazepine Screen, UrineNegativeNEGATIVEMercy Health- [place], KYBuprenorphine UrineNegativeNEGATIVEMercy Health- [place], [place]Cannabinoid Scrn, UrNegativeNEGATIVE [facility]- [place], [place]Cocaine Metabolite, UrineNegativeNEGATIVEMercy Health- [place], KYInterpretation and review of laboratory resultsAbnormalMerMultiCare [facility]- [place], [place] MDMA, UrineNOT REPORTEDNEGATIVEMerMultiCare Valley Hospital- [place], KYMethadone Screen, Urine NegativeNEGATIVEMercy Health- [place], KYMethamphetamine, UrineNegativeNEGATIVEMercy Health- [place], KYOpiates, UrineNegativeNEGATIVEMercy Health- [place], KYOxycodone Screen, UrNegativeNEGATIVEMercy Health- [place], KYPhencyclidine, UrineNegative NEGATIVEMercy Health- [place], KYPropoxyphene, UrineNegativeNEGATIVEMercy Health- [place], KYTest InformationNOT REPORTEDMer Health- [place], KYTricyclic Antidepressants, UrinePositiveAbnormalNEGATIVEFirelands [facility]- [place], [place]Comment on above:Drug screen results are to be used for medical purposes only. All positive results are unconfirmed. Testing for employment or legal uses should be sent to a reference laboratory for confirmation. Comprehensive Metabolic Panelon 68-10-7266Crkuqya [Mass/Vol]4.3 g/dL3.5 - 5.2 g/dLMer Health- [place], [place]Albumin/Globulin [Mass ratio]1.4 {ratio}[facility]- [place], [place]ALP [Catalytic activity/Vol]50 U/L35 - 104 U/LMercy Health- [place], KYALT [Catalytic activity/Vol]9 U/L5 - 33 U/LMercy Health- [place], KYAnion gap [Moles/Vol] 8 mmol/LLow9 - 17 mmol/LMgood samaritan hospitaly Health- [place], KYAST [Catalytic activity/Vol]15 U/L <32[facility]- [place], KYBilirubin Ql (U)0.31 mg/dL0.3 - 1.2 mg/dLFirelands Regional Medical Center [facility]- [place], KYBun/Cre Mcfoo10Yqeqe Health- [place], KYCalcium [Mass/Vol]9.4 mg/dL8.6 - 10.4 mg/dLFirelands Regional Medical Center [facility]- [place], KYChloride [Moles/Vol]102 mmol/L98 - 107 mmol/LMercy Health- [place], KYCO2 [Moles/Vol]28 mmol/L20 - 31 mmol/LMercy Health- [place], [place] Creatinine [Mass/Vol]0.92 mg/dLHigh0.5 - 0.9 mg/dLFirelands Regional Medical Center [facility]- [place], KYGFR >60>60 mL/minMercy Health- [place], KYGFR Non->60>60 mL/minMercy Health- [place], KYGlucose [Mass/Vol]91 mg/dL70 - 99 mg/dLFirelands Regional Medical Center [facility]- [place], KYInterpretation and review of laboratory resultsAbnormalMer Health- [place], KYPotassium [Moles/Vol]4.3 mmol/L3.7 - 5.3 mmol/LMercy Health- [place], KYProtein [Mass/Vol]7.4 g/dL6.4 - 8.3 g/dLO'Fallon, KYSodium [Moles/Vol]138 mmol/L 135 - 144 mmol/LMReading, KYUrea nitrogen [Mass/Vol]18 mg/dL6 - 20 mg/dL [place], KYHepatitis Panel, Acuteon 18-80-0910BLM IgM IA Qn (S) NONREACTIVENONREACTIVEO'Fallon, KYHep B Core Ab, IgMNONREACTIVE NONREACTIVEKettering Health [facility], [facility] Medical Centerpatitis B Surface AgNONREACTIVENONREACTIVEKettering Health [facility], [facility] Hollytis C AbREACTIVEAbnormalNONREACTIVEO'[place], [place] Comment on above: The hepatitis C [...] Health Department Interpretation and review of laboratory resultsAbnormNewville, [place] Metabolic Panelon 90-45-0896NWA/1.73 sq M predicted among non-blacks MDRD (S/P/Bld) [Vol rate/Area][place], KYComment on above:Average GFR for 20-29 years old: 116 mL/min/1.73sq m Chronic Kidney Disease: <60 mL/min/1.73sq m Kidney failure: <15 mL/min/1.73sq m eGFR calculated using average adult body mass. Additional eGFR calculator available at: http://www.[employer].com/multiple_crcl_2012.htm Stage 1: Some kidney damage normal GFR Stage 2: Mild kidney damage GFR 60-89 Stage 3: Moderate kidney damage GFR 30-59 Stage 4: Severe kidney damage GFR 15-29 Stage 5: Severe kidney damage GFR <15 ESRD - chronic treatment by dialysis or transplant Drug Scr, Abuse, Uron 86-98-3748Myuugscummi(s),UrPositiveAbnormalNEGRegency Hospital Cleveland EastComment on above:Result Comment: (Positive cutoff 1000 ng/mL) Performed By: #### ABBEY ####[address] [address] Barbiturate(s),UrNegativeNormalNEGMercy [facility] Hospital Comment on above:Result Comment: (Positive cutoff 200 ng/mL)Performed By: #### ABBEY ####[address] [address] Base excessNegativeNormalNEGMercy Kindred HealthcareComment on above:Result Comment: (Positive cutoff 300 ng/mL)Performed By: #### ABBEY ####[address] [address] Benzodiazepine(s)Negative NormalNEGRegency Hospital Cleveland EastComment on above:Result Comment: (Positive cutoff 200 ng/mL)Performed By: #### ABBEY ####[address] [address] Cannabinoid(s),UrNegativeNormalNEGMercy Kindred HealthcareComment on above:Result Comment: (Positive cutoff 50 ng/mL) Performed By: #### ABBEY ####[address] [phone] InfoAssay provides medical screening only. The absence of expected drug(s) and/orNormalMercy Kindred HealthcareComment on above:Result Comment: metabolite(s) may indicate diluted or adulterated urine, limitations of testing or timing of collection.Testing for legal purposes should be confirmed by another method. To request confirmation of test result, please call the lab within 7 days of sample submission.Performed at [address] [address] ([phone] By: #### ABBEY ####[address] [address] Opiate(s), UrNegativeNormalNEGMercy Kindred Healthcare Comment on above:Result Comment: (Positive cutoff 300 ng/mL)Performed By: #### ABBEY ####[address] [address] Oxycodone, UrineNegativeNormalNEGMercy Kindred HealthcareComment on above: Result Comment: (Positive cutoff 100 ng/mL)Performed By: #### ABBEY ####[address] [address] Phencyclidine, Ur NegativeNormalNEGMercy Kindred HealthcareComment on above:Result Comment: (Positive cutoff 25 ng/mL)Performed By: #### ABBEY ####[address] [address] Urine, methadone presence NegativeNormalNEGMercy Kindred HealthcareComment on above:Result Comment: (Positive cutoff 300 ng/mL)Performed By: #### ABBEY ####[address] [place] [address] Buprenorphrine, UrNOT REPORTEDNormalNEGMercy Kindred HealthcareComment on above:Performed By: #### ABBEY ####[address] [place] [address] MDMA, UrineNOT REPORTEDNormalNEGMercy Kindred HealthcareComment on above: Performed By: #### ABBEY ####[address] [place] [address] Methamphetamine, UrNOT REPORTEDNormalNEGMercy Kindred HealthcareComment on above:Performed By: #### ABBEY ####[address] [place] [address] Propoxyphene,UrineNOT REPORTEDNormalNEGMercy Kindred HealthcareComment on above:Performed By: #### ABBEY ####[address] [address] Urine, tricyclic antidepressantsNOT REPORTEDNormalNEGRegency Hospital Cleveland East Comment on above:Performed By: #### ABBEY ####[address] [phone] Profileon 23-06-6537Cqokyllaqzn 137 mg/dLNormal<200Mercy Kindred HealthcareComment on above:Result Comment: Cholesterol Guidelines: <200 Desirable 200-240 Borderline >240 Undesirable Performed By: #### LIPR ####[address] [address] Cholesterol to HDL Ratio4.3 {ratio}Normal<5Reg[facility] Hospital [facility] EastComment on above:Performed By: #### LIPR ####[address] [address] HDL Frdpttitmzo49 mg/dLLow >40Reg[facility] EastComment on above:Result Comment: HDL Guidelines: <40 Undesirable 40-59 Borderline >59 DesirablePerformed By: #### LIPR ####[address] [address] LDL Gzeoaprynpg31 mg/dLNormal0-130[facility] EastComment on above:Result Comment: LDL Guidelines: <100 Desirable 100-129 Near to/above Desirable 130-159 Borderline >159 UndesirableDirect (measured) LDL and calculated LDL are not interchangeable tests.Performed By: #### LIPR ####[address] [phone] mg/dLNormal<150[facility] EastComment on above:Result Comment: Triglyceride Guidelines: <150 Desirable 150-199 Borderline 200-499 High >499 Very high Based on AHA Guidelines for fasting triglyceride, June 2012.Performed at [facility] [address] [place] [address] ([phone] By: #### LIPR ####[facility] [facility] [place] [address] Cholesterol in VLDL mass concNOT REPORTEDNormal1-30Mercy Kindred HealthcareComment on above:Performed By: #### LIPR ####[facility] [facility] [place] [address] Vital Signs Date TimeVital SignValuePerforming JswndvpsrVgxqzvuw08-33-3666 14:28-0400Body ohutra30.63 kgCorey Markus DO Work Phone: [phone] SystemsYzxckvonga68-11-8964 14:28-0400Diastolic blood oauouyam58 mm[Hg]Yousif Markus DO Work Phone: [phone] SystemsYoigmqlaye38-46-7775 14:28-0400Systolic blood tpvxdamw618 mm[Hg]Yousif Markus DO Work Phone: [phone] SystemsTxezxpsqwj84-87-1843 13:48-0400Body jcauyu87.91 kgJody UREÑA Work Phone: [phone] SystemsPfgxffrqbr39-77-6209 13:48-0400Diastolic blood eucksapa79 mm[Hg]Jody UREÑA Work Phone: [phone] SystemsQdygmjtevc14-60-5840 13:48-0400Systolic blood cwtnajgm178 mm[Hg]Jody UREÑA Work Phone: [phone] SystemsBqkbcfkdeu32-26-2781 11:30-0400Body thycsh55.54 kgCorey Markus DO Work Phone: [phone] SystemsEtyzzudkul33-32-7129 11:30-0400Diastolic blood ehymrvix16 mm[Hg]Yousif Markus DO Work Phone: [phone] SystemsWrjdzlcxha42-75-6042 11:30-0400Systolic blood xvqlmmam417 mm[Hg]Yousif Markus DO Work Phone: [phone] SystemsCosqypmbet53-97-2717 10:14-0400Body xzyloo08.91 kgJonathongonzalez [employer]ong [employer] CONSULTANT Work Phone: [phone]-[facility] SystemsUdtlcldkcu43-65-5992 10:14-0400Diastolic blood lxlkacrw90 mm[Hg]Mundo Bong FITNESS CONSULTANT Work Phone: [phone]-[facility] SystemsZhrxwjwhuu62-39-7446 10:14-0400Systolic blood qkyklagk864 mm[Hg]Mundo Bong FITNESS CONSULTANT Work Phone: [phone] [place], [place] [address]Upjtkjoyte36-03-4273 11:44-0400Body upflnp95.94 kgCorey Markus DO Work Phone: [phone] [place], [place] [address]Hjditzhwlv44-53-7191 10:03-0400Body .12 kgJody UREÑA Work Phone: [phone] [place], [place] [address]Mvaiofzuhn68-13-1403 10:03-0400Diastolic blood rgxsmaxc16 mm[Hg]Jody UREÑA Work Phone: [phone] [place], [place] [address]Lawryvzfmu87-44-8882 10:03-0400Systolic blood mutdklsm608 mm[Hg]Jody UREÑA Work Phone: [phone] [place], [place] [address]Zaalzhuofd18-72-8687 11:13-0400Body pnacqx47.56 kgCorey Markus DO Work Phone: [phone] [place], [place] [address]Qekzxyxyff85-16-0130 11:13-0400Diastolic blood kdoczrku36 mm[Hg]Yousif Markus DO Work Phone: [phone] [place], [place] [address]Ghdnjwvfks72-69-2481 11:13-0400Systolic blood mm[Hg]Yousif Markus DO Work Phone: [phone] [place], [place] [address]Regjnhegpp08-09-1281 14:18-0400Body seecjy61.67 kgCorey Markus DO Work Phone: [phone] [place], [place] [address]Dcddlyhhno45-86-5876 14:18-0400Diastolic blood sjrxdfmu80 mm[Hg]Yousif Markus DO Work Phone: [phone]-[facility] SystemsSptbigkybt20-35-7427 14:18-0400Systolic blood eervintj655 mm[Hg]Yousif Markus DO Work Phone: [facility] SystemsBsxhzcizau08-77-4245 15:12-0400Body .36 kg[facility]04-17-2025 15:12-0400Diastolic blood hnozspvj72 mm[Hg][facility]04-17-2025 15:12-0400Systolic blood cosrdxeh080 mm[Hg][facility]02-04-2025 07:30-0500Body degrvxyoxmg36.7 [degF] PHYSICIAN [facility]02-04-2025 07:30-0500 Diastolic blood qbrgefrt09 mm[Hg]PHYSICIAN [facility]02-04-2025 07:30-0500Heart rate85 /minPHYSICIAN [facility]02-04-2025 07:30-0500Respiratory rate16 /minPHYSICIAN [facility]02-04-2025 07:30-2538KpN3% (BldA) [Mass fraction]98 %PHYSICIAN [facility]02-04-2025 07:30-0500Systolic blood mm[Hg]PHYSICIAN [facility]02-03-2025 14:43-0500Body josxji667.64 cmPHYSICIAN [place]02-03-2025 09:00-0500Body orkzoi75.2 kg PHYSICIAN [facility]01-31-2025 17:00-0500 Diastolic blood whstutpi77 mm[Hg]Rochelle Alvarado MD Work Phone: [phone])496-[address] [place], [place] [address]001-31-2025 17:00-0500 Heart rate81 /Kain Alvarado MD Work Phone: [phone]01-31-2025 17:00-0500 Respiratory rate16 /Kain Alvarado MD Work Phone: [phone]01-31-2025 17:00-0500 SaO2% (BldA) [Mass fraction]100 %Rochelle Alvarado MD Work Phone: [phone]01-31-2025 17:00-0500 Systolic blood leakampj565 mm[Hg]Rochelle Alvarado MD Work Phone: [facility]01-31-2025 12:00-0500 Body wwqaxzlenhn19.7 [degF]Rochelle Alvarado MD Work Phone: [facility]01-31-2025 06:00-0500 Body agajoc37.2 kgDolawanda Alvarado MD Work Phone: [facility]01-30-2025 16:30-0500 Body riyjol458.18 cmDolawanda Alvarado MD Work Phone: [facility]01-29-2025 20:45-0500 Diastolic blood ktlukjbh42 mm[Hg][facility] 10-15-2024 20:45-0500Heart shar268 /minPrem[facility] Health [facility]01-29-2025 20:45-0500Mean blood caiawahp244 mm[Hg][facility]01-29-2025 20:45-0500Respiratory rate14 /[facility]01-29-2025 20:45-0500Systolic blood roshuzai460 mm[Hg][facility]01-29-2025 20:00-0500Heart rate 89 /minPrem[facility]01-29-2025 19:57-0500Diastolic blood zflrjyuj26 mm[Hg][facility]01-29-2025 19:57-0500Heart rate95 /minPrem[facility] Health [facility]01-29-2025 19:57-0500Mean blood jjwofpxm38 mm[Hg][facility]01-29-2025 19:57-0500Respiratory rate14 /minPrem[facility] Health [facility]01-29-2025 19:57-1930RiW9% (BldA) [Mass fraction]99 %[facility]01-29-2025 19:57-0500Systolic blood pressure 115 mm[Hg][facility]01-29-2025 19:00-0500 Diastolic blood aozvnifk36 mm[Hg][facility] 10-15-2024 19:00-0500Mean blood zbwojjkx98 mm[Hg][facility]01-29-2025 19:00-0500Systolic blood hldusgit209 mm[Hg][facility]01-29-2025 18:30-0500Respiratory rate16 /min [facility]01-29-2025 18:30-7307KkN6% (BldA) [Mass fraction]99 %[facility]01-29-2025 17:02-5935BhU7% (BldA) [Mass fraction]99 %[facility]01-29-2025 13:29-0500Body qbqwmflsiqx03.7 [degF][facility]01-29-2025 13:29-0500Heart rate99 /minPrem[facility] Health [facility]01-29-2025 13:14-0500Body hcrbdjdfjyb53.7 [degF][facility]01-29-2025 13:14-0500Heart jrvk507 /min [facility] Encounters Encounter DateEncounter TypeCare ProviderFacilityStart: 07-08-2025 End: 16-65-3149Zbfjjnyrh Result EncounterValerie Keya Rapp CNM Work Phone: [facility] External Department UnsolicitedStart: 07-08-2025 End: 95-55-9987Ksmkebhta Result EncounterValerie Keya Rapp CNM Work Phone: [facility] External Department UnsolicitedStart: 07-07-2025 End: 58-02-1463Wecvop outpatient visit 15 minutesCorey Markus DO Work Phone: [facility] Alvaro OBGYNComment on above:Third trimester ([facility]); 37 weeks gestation of ([facility])Start: 07-07-2025 End: 86-06-0126vtqbojivvdOOVQU FAZIONot AvailableStart: 07-07-2025 End: 16-50-8017Hzwkro flowsheetCorey Markus DO Work Phone: [facility] Alvaro OBGYNStart: 07-07-2025 End: 15-02-4631Crkdsf flowsheetCorey Markus DO Work Phone: [facility] [place] OBGYNStart: 06-30-2025 End: 39-20-4322Ozbfyd outpatient visit 15 minutesJody UREÑA Work Phone: [facility] [place] OBGYNComment on above:Third trimester ([facility]); 36 weeks gestation of ([facility]); H/O pre-eclampsia in prior , currently ([facility]); H/O miscarriage, currently ([facility]); History of gestational diabetes; Anemia, unspecified typeStart: 06-30-2025 End: 17-86-4212xjgkyzcbigRZZ Nicolas AvailableStart: 06-18-2025 End: 12-99-7364Zqkiolqop Result EncounterMundo Woody NP Work Phone: [facility] External Department UnsolicitedStart: 06-18-2025 End: 15-37-3193Bytrsowci Result EncounterMundo Woody NP Work Phone: [facility] External Department UnsolicitedStart: 06-08-2025 End: 58-36-8930Iyfdbv flowsheetCorey Markus DO Work Phone: [facility] Alvaro OBGYNStart: 06-08-2025 End: 54-51-1598Rsczay flowsheetCorey Markus DO Work Phone: [facility] [place] OBGYNStart: 06-08-2025 End: 62-40-0249Jfreuk outpatient visit 15 minutesCorey Markus DO Work Phone: [facility] Alvaro OBGYNComment on above:Third trimester ([facility]); 33 weeks gestation of ([facility]); Gestational diabetes mellitus (GDM) in third trimester, gestational diabetes method of control unspecified ([facility]); H/O pre-eclampsia in prior , currently ([facility]); H/O miscarriage, currently ([facility])Start: 06-08-2025 End: 02-62-5121hpitbydvepEAKMV FAZIONot AvailableStart: 05-21-2025 End: 68-11-0132Odxkkfotl Result EncounterMundo Woody NP Work Phone: [facility] External Department UnsolicitedStart: 05-21-2025 End: 42-97-7865Tyottwynq Result EncounterMundo Woody NP Work Phone: [facility] External Department UnsolicitedStart: 05-20-2025 End: 44-68-3798Dccwzt outpatient visit 15 minutesMundo Woody NP Work Phone: [facility] [place] OBGYNComment on above:Diarrhea, unspecified type (Primary Dx); Third trimester ([facility]); 31 weeks gestation of ([facility]); Nausea and vomiting in ([facility])Start: 05-20-2025 End: 31-85-3138arvwrlfirdNNVUQZMP EBERLYNot AvailableStart: 05-08-2025 End: 52-61-4025Qkuskuegv Result EncounterMundo Woody NP Work Phone: [facility] External Department UnsolicitedStart: 05-08-2025 End: 67-50-0252Rqgrgpmhc Result EncounterMundo Woody NP Work Phone: [facility] External Department UnsolicitedStart: 05-06-2025 End: 20-92-2660Rdvydf flowsheetCorey Markus DO Work Phone: [facility] Alvaro OBGYNStart: 05-06-2025 End: 53-52-2223Lqlgkx flowsheetCorey Markus DO Work Phone: [facility] Alvaro OBGYNStart: 05-06-2025 End: 38-84-5941Zwxlic outpatient visit 15 minutesCorey Markus DO Work Phone: [facility] [place] OBGYNComment on above:Third trimester ([facility]); 29 weeks gestation of ([facility]); size inconsistent with dates ([facility]); Low iron; Dizziness; NauseaStart: 05-06-2025 End: 72-45-1207vmtcuntepiYDCDY FAZIONot AvailableStart: 04-09-2025 End: 53-50-4516Xxptgy flowsAlireza UREÑA Work Phone: [facility] BCP OBStart: 04-09-2025 End: 16-63-8064Ndncao alexyheetJody UREÑA Work Phone: [facility] BCP OBStart: 04-09-2025 End: 52-38-9882Nxmgsn outpatient visit 15 minutesAmy Lamin UREÑA Work Phone: [facility] BCP OBComment on above:Second trimester ([facility]); 25 weeks gestation of ([facility])Start: 04-09-2025 End: 32-01-1275onurqgpjzzYKR RAMEYNot AvailableStart: 04-01-2025 End: 29-93-3283oqzhydmdisDQHIY FAZIONot AvailableStart: 03-11-2025 End: 95-08-3240Jguxmn flowsheetCorey Markus DO Work Phone: [facility] BCP OBStart: 03-11-2025 End: 59-39-7025Rttjvt flowsheetCorey Markus DO Work Phone: [facility] BCP OBStart: 03-11-2025 End: 64-47-4630Gfzzngsda Result EncounterCorey Markus DO Work Phone: [facility] External Department UnsolicitedStart: 03-11-2025 End: 49-58-4763Rbqeseut Result EncounterCorey Markus DO Work Phone: [facility] External Department UnsolicitedStart: 03-11-2025 End: 41-23-9174ddlnjtdrzyLAABN FAZIONot AvailableStart: 03-11-2025 End: 08-53-7322Klzqovl encounter procedureCorey Markus DO Work Phone: noms HealthcareStart: 03-11-2025 End: 90-85-7169Sanrsoea preventive med est patient 18-39 yrsCorey Markus DO Work Phone: noms BCP OBComment on above:Screening, , for anatomic survey ([facility]); Well woman exam with routine gynecological exam; Exposure to STD; Vaginal discharge; 21 weeks gestation of ([facility]); Second trimester ([facility]); Nausea and vomiting, unspecified vomiting typeStart: 01-19-2025 End: 74-58-9036Hjkvdm outpatient visit 15 minutesCorey Markus DO Work Phone: noms BCP OBComment on above:History of gestational diabetes (Primary Dx); Second trimester ; 13 weeks gestation of ; Urinary tract infection without hematuria, site unspecified; Diabetes mellitus screeningStart: 01-19-2025 End: 76-61-4272xshccabecfHLNEK FAZIONot AvailableStart: 01-07-2025 End: 79-46-9041Opxglpsar Result EncounterCorey Markus DO Work Phone: [facility] External Department UnsolicitedStart: 01-07-2025 End: 09-31-2207Tztxoqsyy Result EncounterCorey Markus DO Work Phone: [facility] External Department UnsolicitedStart: 01-05-2025 End: 84-91-3270Bealftbfo department patient visitALEXA JAE [facility] HospitalStart: 01-01-2025 End: 64-43-0977Cskhvc outpatient visit 5 minutesNoms Bcp Ob Markus [facility] BCP OBComment on above:GA: 71o2cXovxh: 01-01-2025 End: 54-03-6593sugnsjjykpIEJ RAMEYNot AvailableStart: 92-38-8535Zsc-patient / Non-visitPHYSICIAN NO [facility] Physician [facility] Med OutPt Work Phone: Start: 10-17-2024 End: 65-46-9615Uhmcoigczz and management of inpatientPHYSICIAN NO [facility] Work Phone: Start: 14-77-4037Mne-patient / Non-visitRochelle Alvarado MD Work Phone: [facility] Physician [facility] Med OutPt Work Phone: Start: 10-15-2024 End: 80-80-6482Ftdyhpeynj and management of inpatientRochelle Alvarado MD Work Phone: [facility] Work Phone: Start: 10-15-2024 End: 68-94-9923Ccahcjait department patient visitAstrit H [facility] Start: 28-33-5959Mxlwkjnhqf RecurringRochelle Alvarado MD Work Phone: [facility]- CredibleStart: 52-41-6150rofbqdzorvJkxzvnd M HoyFacility:[facility] Start: 11-26-2023 End: 38-70-7391ouaajptixpSLLKPC RICKERMercy Lakewood HospitalStart: 11-05-2023 End: 78-19-3710tidixqhqlfKiax L SchwabFacility:FT FM BellevueStart: 10-30-2023 Clinisync Result EncounterCorey Markus DO Work Phone: NOHQ External Department UnsolicitedStart: 10-30-2023 Clinisync Result EncounterCorey Markus DO Work Phone: NOJB External Department UnsolicitedStart: 10-29-2023 End: 38-27-9511diwvlpahfsMN Rochelle Alvarado Work Phone: [facility] Work Phone: Start: 10-29-2023 End: 28-25-5477Rmboyslf ReferredMD Rochelle Alvarado Work Phone: [facility]-LAB Path Spec [place] HospStart: 12-21-2022 End: 08-33-8281odoldcatwmUSHXYG BASHIR .Facility:Y4Jrkqo: 11-29-2022 End: 29-07-4811hagmzcdjizYL RODO Dickerson NADERERFacility:V5Eizkn: 24-00-7308rgnubousoo HEALTH SERVICES FAMILYFacility:P8Hdehu: 10-11-2022 End: 98-25-5798kpxkqqqivlZA CHRISTINE JOSEPHERFacility:L8Msise: 09-12-2022 End: 06-14-5442rbfzbkloueDI YOUSIF MARKUS .Facility:W9Awrby: 77-11-1432Fkeypwvek for preprocedural laboratory examinationDR YOUSIF MARKUS .[facility] Start: 08-18-2022 End: 44-25-6902sxwfjkwcpwPU YOUSIF MARKUS .Facility:K1Ialeq: 08-16-2022 End: 82-83-5247skpajsrngzMC YOUSIF MARKUS .Facility:X0Bdtjt: 08-16-2022 End: 71-58-6555Nsstrzzrh for preprocedural laboratory examinationDR YOUSIF MARKUS .Facility:I9Ugflu: 08-14-2022 End: 49-53-9109fmkbbmdigrOZNMIW SERVICES FAMILYFacility:I4Jlfmq: 07-27-2022 End: 23-32-4628xfbmujvfzjFK YOUSIF MARKUS .Facility:D5Mbckk: 07-09-2022 End: 42-44-7480fxeonevbddVZ ELISEO HARDINGFacility:F9Gtyip: 12-12-2021 Telephone Niels Suazo MD Work Phone: Hematology/OncologyComment on above:Lab OrdersStart: 26-50-9167Fgktk abstractingKing Suazo MD Work Phone: Hematology/OncologyStart: 04-26-2020 End: 98-01-7766Gtbhmlezkx hospital visit by physicianRochelle Espino [facility] Start: 03-16-2020 End: 52-68-2860Fuqffqfev department patient visitLima Cornell Facility:[facility]: 11-20-2019 End: 53-45-4341Whynhrobwy hospital visit by Jaquelin [facility] Comment on above:History of miscarriage, currently ; Amenorrhea; Positive urine test; Encounter for supervision of normal in first trimester, unspecified ; Spotting in early pregnancyStart: 06-19-2019 End: 99-48-6879Tvwcmftnty hospital visit by physicianRochelle Espino [facility] Comment on above:Amenorrhea; Positive urine test; Encounter for supervision of normal in first trimester, unspecified ; Spotting in early pregnancyStart: 05-09-2019 End: 46-22-6043Oukwaehiab hospital visit by physicianRochelle Espino [facility] Start: 11-05-2017 End: 66-11-8883Lkzgrvhyvw and management of inpatientSANDEEPremier Health Procedures DateProcedureProcedure DetailPerforming ClinicianStart: 91-92-6148NIR UA (CLEAN/CATCH) PRINTED CIRCUIT BOARD PANELS DEBURRER/MICRO IF IND.Martha CAVAZOSM Work Phone: Start: 50-19-9760Bhwsd dip stick/tablet rgnt non-auto w/o micrscpCorey Markus DO Work Phone: Start: 77-69-7805Xcmev dip stick/tablet rgnt non-auto w/o micrscpAmy Lamin PA Work Phone: Start: 90-50-0649DJS CBC WITH AUTO Stephen Woody NP Work Phone: Start: 14-74-9543Grjxn dip stick/tablet rgnt non-auto w/o micrscpCorey Markus DO Work Phone: Start: 39-83-1930ZDK + PARASITE EXAMMundo Woody NP Work Phone: Start: 72-66-8854Vnzjm dip stick/tablet rgnt non-auto w/o micrscpKrgonzalez Woody FITNESS CONSULTANT Work Phone: Start: 95-37-9179RYVFDUY 1 HOURKrgonzalez Bong FITNESS CONSULTANT Work Phone: Start: 95-72-2205Zgauw dip stick/tablet rgnt non-auto w/o micrscpCorey Markus DO Work Phone: Start: 50-16-8470Udksq dip stick/tablet rgnt non-auto w/o micrscpAmy Lamin UREÑA Work Phone: Start: 64-63-3505GSILSOXJY VAGINITIS (HTRX)Yousif Markus DO Work Phone: Start: 98-12-5223Mtgym dip stick/tablet rgnt non-auto w/o micrscpCorey Markus DO Work Phone: Start: 45-18-1771JXS,APTIMA HPV,AGE GDLNCorey Markus DO Work Phone: Start: 50-69-9724Sgcbxbmqpeg observation [Identifier] in Cervix by Cyto stainCorey Markus DO Work Phone: Start: 56-22-4730Fgmdf dip stick/tablet rgnt non-auto w/o micrscpCorey Markus DO Work Phone: Start: 55-61-8798ANJ TESTCorey Markus DO Work Phone: Start: 13-57-6700Amoda dip stick/tablet rgnt non-auto w/o micrscpCorey Markus DO Work Phone: Start: 04-98-4610HEP of Nory Alvarado MD Work Phone: Start: 74-43-5836Tixthqttlft Panel (PCR)Rochelle Alvarado MD Work Phone: Start: 61-71-6904UDQA CBC WITH PLATELET NO DIFFERENTIALCorey Markus DO Work Phone: Start: 64-43-9474Zgdso hepatitis panelErnest Pepper Work Phone: Start: 97-73-4200Alohzkdi hiv-1&hiv-2 single result Anthony Pabon Work Phone: Start: 94-35-0632Vomnj count complete automatedErnest Pepper Work Phone: Start: 94-78-1236Hhrtxxndrcmgv metabolic panelErnest Pepper Work Phone: Start: 24-47-5675Zrfwtxsmxkfq chorionic qualitative Anthony Pabon Work Phone: Start: 92-70-0804Qzlupmcylh microscopic onlyErnest Pepper Work Phone: Start: 07-85-4821Odvwq dip stick/tablet rgnt auto w/o microscopyErnest Pepper Work Phone: Start: 97-44-8291Fstwqfcq screenDouglas HoyStart: 31-13-1116Mnpzumnw hiv-1&hiv-2 single resultKathleen E Pool Work Phone: Start: 64-37-1525Ebmkhhqfw c antibodyKathleen E Pool Work Phone: Start: 62-98-6092Ahipxystq panelKathleen E Pool Work Phone: Start: 80-87-0360Ogxea typing serologic aboKathleen E Pool Work Phone: Start: 41-03-9099Kvvabjfzjpso chorionic quantitative Georgette E Pool Work Phone: Start: 35-00-8714Oqrb screen, qualitate/multiKathleen E Pool Work Phone: Start: 57-98-9486Knhiyvtq screenDouglas HoyStart: 10-99-0722Ftxxaauie panelKathleen E Pool Work Phone: Start: 27-59-8723Enmfeicwjppq chorionic quantitative Georgette E Pool Work Phone: Start: 66-91-0616Whgzxhef hiv-1&hiv-2 single result Georgette E Pool Work Phone: Start: 18-93-9545Hjzky typing serologic aboKathleen E Pool Work Phone: Start: 25-48-4127Vmtl screen, qualitate/multiKathleen E Pool Work Phone: Start: 57-72-9672Ymkltpsuz c antibodyKathleen E Pool Work Phone: Start: 20-08-5196Vvgni hepatitis panelDawn R Destiny Work Phone: Start: 99-12-9976Zznyfvyloqrbs metabolic panelDawn R Destiny Work Phone: Start: 38-90-4844VNQDIVKIP PATIENTSANDEEP GUPTAStart: 23-92-1961QWCCN DRUG SCREENSANDEEP PTAStart: 65-70-1530BXSNBLY COMMUNICATION ANGELO GUPTAStart: 88-24-0351Rarft panelSANDEEP GUPTAStart: 70-02-3846VKRN GENERALSANDEEP GUPTAStart: 70-70-1305KUIW CODESANDEEP GUPTAStart: 81-48-8081GT CONSULT TO HISTORY AND PHYSICALSANDEEHerber BARRIOSPTAStart: 37-07-0729HCPBURMSAPKTY NURSING CARE ORDER (SPECIFY)ANGELO SPICERStart: 79-88-6581YEG UNIT PRIVILEGES ANGELO BARRIOSPTAStart: 35-69-6291CCGXGSR STATUS (DIRECT)ANGELO SPICER Plan of Treatment DateCare ActivityDetailAuthorStart: 73-02-4658Tvpukexdd for malignant neoplasm of cervixNOMS HealthcareStart: 07-07-2025 End: 99-06-1698Fkmuxah encounter procedureNOMS Winchester OBGYNComment on above: ArrivedStart: 06-30-2025 End: 58-88-8017FLONDDO, GROUP B STREP WITH SUSCEPTIBLITYCULTURE, GROUP B STREP WITH SUSCEPTIBLITY Lab Routine Third trimester ([facility]) Expected: 06/30/2025, Expires: 06/30/2026[facility] Work Phone: comment on above:Expected: 06/30/2025, Expires: 06/30/2026Start: 06-23-2025 End: 24-39-6445Cfjfccp encounter /07/2025 3:00 PM EDT Routine [facility] [address] [place], [id number] Mundo Woody, FITNESS CONSULTANT [address] [place] [address] [facility]BGYNStart: 06-23-2025 End: 04-00-7675Alzskbxovdch / ancillary services ecmihxmgkk19/07/2025 2:30 PM EDT Ancillary Procedure [facility] [address] [place] [address] [facility] OBGYNStart: 06-08-2025 End: 74-32-4211Sjwvmwq encounter aogsqnqsw94/22/2025 11:10 AM EDT Routine [facility] [address] [place] [phone] Yousif Aparicio, DO [address] [place], [place] [id number] ArrivedNOMS Alvrao OBGYNComment on above:ArrivedStart: 06-03-2025 End: 26-96-1404Mbfuobp encounter pmzkfyyne38/17/2025 11:30 AM EDT Routine [facility] [address] [place] [address] Yousif Aparicio, DO [address] [place], [place] [id number] [facility]BGYNStart: 05-20-2025 End: 06-74-0017Qbu and parasite screenOva and parasite screen Microbiology Routine Diarrhea, unspecified type Expected: 05/20/2025 (Approximate), Expires: 05/20/2026NOMS HealthcareComment on above:Expected: 05/20/2025 (Approximate), Expires: 05/20/2026Start: 05-20-2025 End: 30-81-1562Wajwn cultureStool culture Microbiology Routine Diarrhea, unspecified type Expected: 05/20/2025 (Approximate), Expires: 05/20/2026[facility] Work Phone: comment on above:Expected: 05/20/2025 (Approximate), Expires: 05/20/2026Start: 05-20-2025 End: 95-36-1237Eapldsj encounter zuudabiik22/03/2025 9:50 AM EDT Routine [facility] [address] [place], [id number] Mundo Woody, TELMA [address] [place] [address] [facility]BGYNStart: 05-20-2025 End: 66-22-1375Elzcolrgfems / ancillary services mthyesbphi20/03/2025 9:30 AM EDT Ancillary Procedure [facility] [address] [place] [address] [facility]BGYNStart: 39-89-3214Dlptoyjqv vaccinationInfluenza Vaccine (#1)[facility] HealthcareStart: 05-06-2025 End: 88-13-9998Ovjplrwxrpi [Mass/volume] in Serum or PlasmaTransferrin Lab Routine Low iron Dizziness Expected: 05/06/2025 (Approximate), Expires: 05/06/2026[facility] Work Phone: comment on above:Expected: 05/06/2025 (Approximate), Expires: 05/06/2026Start: 05-06-2025 End: 69-24-2444VL for pregnancyUS OB follow up transabdominal approach Imaging Routine size inconsistent with dates ([facility]) Expected: 05/06/2025, Expires: 09/05/2025NOMS HealthcareComment on above:Expected: 05/06/2025, Expires: 09/05/2025Start: 05-06-2025 End: 71-19-1044Uwhpxlk encounter /20/2025 11:30 AM EDT Office [facility] [address] [place] [phone] Yousif Aparicio DO [address] [place], [place] [id number] ArrivedCHARBEL John OBGYNComment on above:ArrivedStart: 04-09-2025 End: 93-11-7581Ewkdvgl encounter mtvhrylho62/24/2025 9:50 AM EDT Routine [facility] [address] [place] [phone] Jody Kimble PA [address] [place], [place] [address] ArrivedNO BCP OBComment on above: ArrivedStart: 04-08-2025 End: 95-06-4931Bjmacqz encounter fueasbagk13/23/2025 11:20 AM EDT Routine [facility] [address] [facility] [place] [address] Jody Kimble, PA [address] [place], [place] [phone] [facility] BCP OBStart: 03-25-2025 End: 68-73-6132Yceutzytzmoh / ancillary services fczokcimsa08/09/2025 11:00 AM EDT Ancillary Procedure [facility] [address] [place], [place] [address] [facility] BCP OBStart: 03-11-2025 End: 31-68-3184Stkcp fetoprotein, maternalAlpha fetoprotein, maternal Lab Routine Screening, , for anatomic survey ([facility]) 21 weeks gestation of ([facility]) Second trimester ([facility]) Expected: 03/11/2025 (Approximate), Expires: 04/10/2025NOMN HealthcareComment on above: Expected: 03/11/2025 (Approximate), Expires: 04/10/2025Start: 03-11-2025 End: 70-60-0099HK for pregnancyUS OB 14+ weeks anatomy scan Imaging Routine Screening, , for anatomic survey ([facility]) Expected: 03/11/2025, Expires: 06/11/2025N[facility] HealthcareComment on above:Expected: 03/11/2025, Expires: 06/11/2025Start: 02-16-2025 End: 68-24-3270Gqdgkyc encounter gatajyzgw63/02/2025 3:30 PM EDT Routine [facility] [address] [place] [address] Jody Kimble PA [address] [place] [address] [facility] BCP OBStart: 01-19-2025 End: 76-61-6151XJX panel - Blood by Automated countCBC Lab Routine Diabetes mellitus screening Expected: 01/19/2025 (Approximate), Expires: 01/19/2026[facility] Work Phone: comment on above:Expected: 01/19/2025 (Approximate), Expires: 01/19/2026Start: 01-19-2025 End: 87-22-9229Pdququjofdv of glucose 1 hour after glucose challenge for glucose tolerance testGlucose tolerance, 1 hour Lab Routine Diabetes mellitus screening Expected: 01/19/2025 (Approximate), Expires: 01/19/2026N[facility] HealthcareComment on above:Expected: 01/19/2025 (Approximate), Expires: 01/19/2026Start: 01-19-2025 End: 65-57-4638Jnwbbsr encounter jyxlxlavu80/05/2025 2:00 PM EDT Routine [facility] [address] [place] [address] Yousif Aparicio, DO [address] [place] [address] [place] [address] [facility] BCP OBStart: 01-01-2025 End: 05-59-9808HNJ/RhABO/Rh Lab Routine Missed menses , unspecified gestational age Expected: 01/01/2025 (Approximate), Expires: 01/01/2026N[facility] HealthcareComment on above:Expected: 01/01/2025 (Approximate), Expires: 01/01/2026Start: 01-01-2025 End: 69-69-8636Drgvm type and Indirect antibody screen panel - BloodType and screen Lab Routine Missed menses , unspecified gestational age Expected: 01/01/2025 (Approximate), Expires: 01/01/2026[facility] Work Phone: comment on above:Expected: 01/01/2025 (Approximate), Expires: 01/01/2026Start: 01-01-2025 End: 50-18-1872Uykou of abuse panel - Urine by Screen methodRapid drug screen, urine Lab Routine , unspecified gestational age Encounter for supervision of normal first in first trimester Expected: 01/01/2025 (Approximate), Expires: 01/01/2026N[facility] HealthcareComment on above:Expected: 01/01/2025 (Approximate), Expires: 01/01/2026Start: 59-88-9777XffkuwmqgCrystal Clinic Orthopedic Center CenterStart: 64-43-9180Bqkgsaxh admissionCrystal Clinic Orthopedic Center CenterStart: 68-25-8033FoodxbdtyCrystal Clinic Orthopedic Center CenterStart: 10-17-2024 [facility] CenterStart: 70-84-0231NporxjszyCrystal Clinic Orthopedic Center CenterStart: 79-27-5718CdzjfrgtdCrystal Clinic Orthopedic Center CenterStart: 10-16-2024 Referral to Social ServicesCrystal Clinic [facility]opedic Center CenterStart: 10-15-2024 Referral to psychiatristCrystal Clinic Orthopedic Center CenterStart: 10-15-2024 Referral to neurologistCrystal Clinic Orthopedic Center CenterStart: 10-15-2024 [facility]htart: 43-78-5335Sjputqrxj for malignant neoplasm of cervixHPV/CotestNOMS HealthcareStart: 12-12-2021 End: 40-91-0881MWX W Auto Differential panel - BloodCBC + DIFF Lab Routine Iron deficiency anemia, unspecified iron deficiency anemia type Expected: 12/12/2021, Expires: [facility]CAd[facility] Work Phone: Comment on above:Expected: 12/12/2021, Expires: 02/11/2022tart: 30-51-7397Phcgztnrj vaccinationINFLUENZA (#1)[facility] Start: 26-45-5460Sbsquwbf cancer screenCervical cancer [place], [place]:Postponed from 2015 (Not Indicated)Start: 06-26-2020 Screening for malignant neoplasm of cervixCervical cancer [place], [place]Comment [place]:Postponed from 2015 (Not Indicated)Start: 74-74-6481Ozzwjphlz vaccinationFlu vaccine (#1)[facility]: 11-21-2019 End: 35-23-9076Yglrirxsr Jctwixdoi77/06/2020 Ancillary Procedure [facility]stetrics and GynecologyL[facility] & GYNECOLOGYStart: 06-26-2019 End: 19-42-6550Yckukwk Rmcsydzo09/10/2019 Routine Obstetrics and Gynecology [place], Georgette Wong APRN - CNM [address] [place] [address] [phone] [facility] OB/GYNStart: 05-18-2019 Influenza vaccinationFlu vaccine (#1)[place], [place]: 2015 Cervical cancer screenCervical cancer screenOhioHealth Southeastern Medical Center: 56-27-0395HYZ TESTINGPAP TESTINGOhioHealth Berger Hospitaltart: 36-31-9940VHfD/Tdap/Td vaccine (1 - Tdap)DTaP/Tdap/Td vaccine (1 - Tdap)[place], [place]Start: 62-05-7812Zcwdk microalbumin profileDTAP,TDAP,TD (1 - Tdap)[facility] Start: 82-02-3987TESFOTTOH C SCREENINGHEPATITIS C SCREENINGFulton County Health Center Start: 37-34-4197FOP SCREENINGHIV SCREENINGOhioHealth Berger Hospitaltart: 85-52-7812XRK vaccine (1 - Female 3-dose series)HPV vaccine (1 - Female 3-dose series)[facility]: 23-26-6454Baahouams Vaccine (1 of 2 - 13+ 2-dose series) Varicella Vaccine (1 of 2 - 13+ 2-dose series)[facility]: 04-98-7398Oyjhv depression screening assessmentDEPRESSION SCREENINGOhioHealth Berger Hospitaltart: 04-35-6679SLxM/Tdap/Td vaccine (1 - Tdap)DTaP/Tdap/Td vaccine (1 - Tdap)[facility]: 83-63-3677YQY vaccine (1 - 2-dose series)HPV vaccine (1 - 2-dose series)[facility]: 74-04-5467PMG vaccine (1 - Female 2-dose series)HPV vaccine (1 - Female 2-dose series)[place] Start: 37-12-0896Tcgbfhfzrylm 0-64 years Vaccine (1 of 1 - PPSV23)Pneumococcal 0-64 years Vaccine (1 of 1 - PPSV23)[facility]: 88-67-8178GHKEV- 19 VACCINE (1)COVID-19 VACCINE (1)[facility] Hospitaltart: 53-42-0350Drhsffecr vaccine (1 of 2 - 2-dose childhood series)Varicella vaccine (1 of 2 - 2-dose childhood series)[place] End: 64-76-5547Pxegjryq identified Cx Nom (U)Urine Culture Microbiology Routine Amenorrhea Positive urine test Encounter for supervision of normal in first trimester, unspecified 1 Occurrences starting 11/20/2019 until 11/20/2019[place], [place]Comment [place]:1 Occurrences starting 11/20/2019 until 11/20/2019Bacteria identified Cx Nom (U)[place] End: 03-94-0653Uycxrhix identified Cx Nom (U)Urine Culture Microbiology Routine Amenorrhea Positive urine test Encounter for supervision of normal in first trimester, unspecified 1 Occurrences starting 06/19/2019 until 06/19/2019[facility], [place]Comment on above:1 Occurrences starting 06/19/2019 until 06/19/2019Bacteria identified in Urine by CultureUrine culture Microbiology Routine Missed menses Ordered: 01/01/2025[facility] Comment on above:Ordered: 01/01/2025 End: 11-20-2019C.trachomatis N.gonorrhoeae DNA, UrineC.trachomatis N.gonorrhoeae DNA, Urine Microbiology Routine Amenorrhea Positive urine test Encounter for supervision of normal in first trimester, unspecified 1 Occurrences starting 11/20/2019 until 11/20/2019[facility], [place] Comment on above:1 Occurrences starting 11/20/2019 until 11/20/2019C.trachomatis N.gonorrhoeae DNA, UrineKettering Health [facility], [place] End: 06-19-2019C.trachomatis N.gonorrhoeae DNA, UrineC.trachomatis N.gonorrhoeae DNA, Urine Microbiology Routine Amenorrhea Positive urine test Encounter for supervision of normal in first trimester, unspecified 1 Occurrences starting 06/19/2019 until 06/19/2019[place] Comment on above:1 Occurrences starting 06/19/2019 until 06/19/2019CBC W Auto Differential panel - BloodCBC and differential Lab Routine Missed menses , unspecified gestational age Ordered: 01/01/2025[facility] HealthcareComment on above:Ordered: 01/01/2025HLAMYDIA TRACHOMATIS (GENITO/STI)CHLAMYDIA TRACHOMATIS (GENITO/STI) Lab Routine Exposure to STD Ordered: 03/11/2025[facility] HealthcareComment on above:Ordered: 03/11/2025ytology Cervical or vaginal smear or scraping studyPap Smear Pathology and Cytology Routine Well woman exam with routine gynecological exam Ordered: 03/11/2025[facility] HealthcareComment on above: Ordered: 03/11/2025Ferritin [Mass/volume] in Serum or PlasmaFerritin Lab Routine Low iron Dizziness Ordered: 05/06/2025[facility] HealthcareComment on above:Ordered: 05/06/2025Hemoglobin A1c/Hemoglobin.total in BloodHemoglobin A1c Lab Routine Missed menses , unspecified gestational age Ordered: 01/01/2025[facility] HealthcareComment on above:Ordered: 01/01/2025Hepatitis A virus antibody, IgM typeAv[facility] B core antibody measurement, IgM [facility] B virus surface Ag [Presence] in Serum or Plasma by ImmunoassayOhiohealth Berger HospitalHekaiser foundation hospital sunset B virus surface Ag [Presence] in Serum or Plasma by ImmunoassayDzilth-Na-[facility] B surface antigen Lab Routine Missed menses , unspecified gestational age Ordered : 01/01/2025[facility] HealthcareComment on above:Ordered: 01/01/2025 End: 75-91-5724Eaoqmzwjv C RNA, quantitative, PCRHepatitis C RNA, quantitative, PCR Lab Routine Once for 1 Occurrences starting 04/26/2020 until 04/26/2020[facility], [place]Comment on above:Once for 1 Occurrences starting 04/26/2020 until 04/26/2020Hepatitis C RNA, quantitative, PCRHepatitis C RNA, quantitative, PCR Lab Routine 04/26/2020 7:[address] [facility], KYHepatitis C virus Ab [Presence] in Serum or Plasma by ImmunoassayHepatitis C antibody Lab Routine Missed menses , unspecified gestational age Ordered: 01/01/2025[facility] SystemsComment on above:Ordered: 01/01/2025Hepatitis C virus IgG Ab [Presence] in Serum or Plasma by ImmunoassayOhiohealth Berger HospitalHIV 1+2 Ab+HIV1 p24 Ag [Presence] in Serum or Plasma by ImmunoassayOhiohealth Berger Hospital End: 63-81-7682RKJ ScreenHIV Screen Lab Routine Once for 1 Occurrences starting 05/09/2019 until 05/09/2019[facility], [place]Comment on above:Once for 1 Occurrences starting 05/09/2019 until 05/09/2019HIV ScreenHIV Screen Lab Routine 05/09/2019 [address] [facility], KYHIV-1/HIV-2 antigen/antibody combination immunoassayHIV-1 and HIV-2 antibodies Lab Routine Missed menses , unspecified gestational age Ordered: 01/01/2025[facility] SystemsComment on above:Ordered: 01/01/2025Homogenous nuclear Ab pattern [Titer] in Serum [facility] HospitalHuman papilloma virus DNA [Presence] in Unspecified specimen by Probe with amplificationHPV DNA probe, amplified Microbiology Routine Well woman exam with routine gynecological exam Ordered: 03/11/2025[facility] HealthcareComment on above:Ordered: 03/11/2025Neisseria gonorrhoeae DNA [Presence] in Unspecified specimen by ELMO with probe detection Neisseria gonorrhea DNA probe, direct Lab Routine Exposure to STD Ordered: 03/11/2025[facility] HealthcareComment on above:Ordered: 03/11/2025Nuclear Ab [Titer] in SerumOhiohealth Berger HospitalPatient EducationKnow your Meds [facility] Work Phone: Patient referralCrystal Clinic Orthopedic Center [facility]tr Work Phone: PRENATAL PROFILE IPRENATAL PROFILE I Lab Routine Amenorrhea Positive urine test Encounter for supervision of normal in first trimester, unspecified 11/20/2019 12:26 PM [facility], KYReagin Ab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
--- OUTSIDE RECORDS SUMMARY | 2025-07-15 07:45 | XMS_ITS | Clinical Summary ---
Author Organization [employer] tem Address [id number] [address] [place] [address] Care Team Providers Care Emt Name Role Phone Prisca Dave BARBED WIRE MACHINE OPERATOR-EMISSIONS INSPECTOR Primary Care Provider Allergies No known active [...] DateHistory of pre-eclampsia in prior , currently egvtdmrd13/14/2021ubstance abuse affecting , antepartum 05/31/2021epression complicating , ugloapvheh19/14/2021Obesity affecting elittjyik43/14/2021History of gestational diabetes in prior , currently agbqmlix44/14/2021Former csijiq431Severe recurrent major depression without psychotic szwyuoua97/25/2018Amphetamine use disorder, severe 11/11/2017Posttraumatic stress jzchdbyg98/25/2018Recurrent major depressive disorder, in partial ypbkohdyo98/06/2017Acute stress zpucnxnp20/06/2017 Resolved Problems ProblemNoted DateDiagnosed DateResolved DateTobacco smoking complicating pluqnongh42eizuresuicidal ideations Reported xrdgnij26 Family History Medical HistoryRelationNameCommentsAnxiety disorderFatherDepressionFather RelationNameStatusCommentsFather Social History Tobacco UseTypesPacks/DayYears UsedDateSmoking Tobacco: Every Day Vaping/E-cigarettesSmokeless Tobacco: Never Tobacco Cessation:Ready to Q uit: Not Asked; Counseling Given: Not Answered Alcohol UseStandard Drinks/WeekCommentsNo0 (1 standard drink = 0.6 oz pure alcohol)ChildcareAnswerDate YsbxayvcBzybwsnkhNmaqght24/10/2019EmploymentAnswer Date CkirfohnEtillpoekzFefhtpk31/10/2019Hunger ScreeningAnswerDate Recorded Within the past 12 months we worried whether our food would run out before we got money to buy more.Never True07/10/2023Within the past 12 months the food we bought just didn't last and we didn't have money to get more.Never True 3Purpose - LifeAnswerDate RecordedPurpose and direction in lifeUnknown 1CommentsNoSex and Gender InformationValueDate RecordedSex Assigned at BirthNot on fileLegal PdkIzwdvz82/04/2015 12:25 PM EDTGender IdentityNot on fileSexual OrientationNot on file Last Filed Vital Signs Vital SignReadingTime TakenCommentsBlood Nywtiwrn823/8404 10:37 AM EDT Pygcx9232 10:37 AM TWKItxmqatjkaj98.7 ??C (98.1 ??F)01/05/2025 10:37 AM EDTRespiratory Faji377301/05/2025 10:37 AM EDTOxygen Phpaywlsov971%01/05/2025 10:37 AM EDTInhaled Oxygen Concentration--Rjquam56.6 kg (160 lb)01/05/2025 10:37 AM PEYSyczkm876.6 cm (5' 6 )01/05/2025 10:37 AM EDTBody Mass Index25.82 01/05/2025 10:37 AM EDT Plan of Treatment Health MaintenanceDue DateLast DoneCommentsTobacco Scumgjypiv1994DTaP,Tdap and Td Vaccines (6 - Tdap), 10/29/1995, 1995, Additional history existsDepression Qzuouyols27/27/2006dult BMI Follow Up Plan 01/12/2012Pap Smear2015Influenza Wjjphni3305/18/2025dult BMI Screening Tobacco Blotypnbe99 Medical Devices Not on file Insurance Advance Directives * Full Code (Latest Code Status on File) Date ActivatedDate InactivatedComments02/19/2017 4:41 PM02/23/2017 3:13 PM Care Teams Team MemberRelationshipSpecialtyStart DateEnd Date Prisca Dave, MARISA-EMISSIONS INSPECTOR [address] [place] [phone] (work) [facility]04/24/23
--- OUTSIDE RECORDS SUMMARY | 2025-07-15 07:45 | XMS_ITS | Encounter Summary ---
Author Organization [facility] Address [address] [place] [address] Care Team Providers Care Check Writer Name Role Phone Unavailable Primary Care Provider Unavailabl e Encounter Details DateTypeDepartmentCare Team (Latest Contact Info)Elznxuizihc65/28/2025bstract [facility] [address] [address] Yousif Aparicio DO [address] [place], [place] [id number] Social History Tobacco UseTypesPacks/DayYears UsedDateSmoking Tobacco: NeverSmokeless Tobacco: NeverAlcohol UseStandard Drinks/WeekCommentsNever0 (1 standard drink = 0.6 oz pure alcohol)PHQ-2AnswerDate RecordedPatient Health Questionnaire-2 Score0 07/10/2025Estimated Date of QaqedzkrQlyrbtnlSeg07/05/2025Based on UltrasoundSex and Gender InformationValueDate RecordedSex Assigned at BirthNot on fileLegal LbjHswcez29/15/2023 8:06 PM EDTGender IdentityNot on fileSexual OrientationNot on filedocumented as of this encounter Plan of Treatment Not on file documented as of this encounter Visit Diagnoses Not on filedocumented in this encounter
--- OUTSIDE RECORDS SUMMARY | 2025-07-15 07:45 | XMS_ITS | Encounter Summary ---
Author Organization [facility] Address [address] [place] [address] Care Team Providers Care Broaching Machine Set Up Operator Name Role Phone Unavailable Primary Care Provider Unavailabl e Encounter Details DateTypeDepartmentCare Team (Latest Contact Info)Yugdayyornw95/21/2025amboo flowsheet [facility] [address] [place] [phone] Yousif Aparicio DO [address] [place] [address] Social History Tobacco UseTypesPacks/DayYears UsedDateSmoking Tobacco: NeverSmokeless Tobacco: NeverAlcohol UseStandard Drinks/WeekCommentsNever0 (1 standard drink = 0.6 oz pure alcohol)PHQ-2AnswerDate RecordedPatient Health Questionnaire-2 Score0 06/11/2025Estimated Date of HuhpmaerWnvfhxnlPrq87/05/2025Based on UltrasoundSex and Gender InformationValueDate RecordedSex Assigned at BirthNot on fileLegal BhzPiorxt21/15/2023 8:06 PM EDTGender IdentityNot on fileSexual OrientationNot on filedocumented as of this encounter Plan of Treatment Not on file documented as of this encounter Visit Diagnoses Not on filedocumented in this encounter
--- OUTSIDE RECORDS SUMMARY | 2025-07-15 07:45 | XMS_ITS | Encounter Summary ---
Author Organization [facility] Address [address] [facility] [place] [address] Care Team Providers Care Dental Specialist Name Role Phone Unavailable Primary Care Provider Unavailabl e Encounter Details DateTypeDepartmentCare Team (Latest Contact Info)Spgehbdzllr70/24/2025Patient Outreach [facility] [address] [place] [address] Jody Gentile LPN [address], [place] [id number] Social History Tobacco UseTypesPacks/DayYears UsedDateSmoking Tobacco: NeverSmokeless Tobacco: NeverAlcohol UseStandard Drinks/WeekCommentsNever0 (1 standard drink = 0.6 oz pure alcohol)PHQ-2AnswerDate RecordedPatient Health Questionnaire-2 Score0 07/10/2025Estimated Date of TnqzklkvBrycvqwzKxd23/05/2025Based on UltrasoundSex and Gender InformationValueDate RecordedSex Assigned at BirthNot on fileLegal NmaAvkeey11/15/2023 8:06 PM EDTGender IdentityNot on fileSexual OrientationNot on filedocumented as of this encounter Functional Status * Over the past 2 weeks, how often have you been bothered by any of the following problems?QuestionAnswerDate of AssessmentAuthorLittle interest or pleasure in doing thingsNot at all07/10/2025 3:48 PM Jody Rao LPN Feeling down, depressed, or hopelessNot at all07/10/2025 3:48 PM Jody Rao LPNPatient Health Questionnaire-2 Btnzb424 3:48 PM EDJody Garrett LPN documented as [...]
--- OUTSIDE RECORDS SUMMARY | 2025-07-15 07:45 | XMS_ITS | Encounter Summary ---
Author Organization [facility] Address [address] [place] [address] Care Team Providers Care Adon Name Role Phone Unavailable Primary Care Provider Unavailabl e Encounter Details DateTypeDepartmentCare Team (Latest Contact Info)Wsqcpdmckyu08/22/2025linisync Result Encounter [facility] External Department Unsolicited Martha Rapp, CNM [address] [place] [address] Social History Tobacco UseTypesPacks/DayYears UsedDateSmoking Tobacco: NeverSmokeless Tobacco: NeverAlcohol UseStandard Drinks/WeekCommentsNever0 (1 standard drink = 0.6 oz pure alcohol)PHQ-2AnswerDate RecordedPatient Health Questionnaire-2 Score0 06/11/2025Estimated Date of WeckusjkGlntjqapNiv44/05/2025Based on UltrasoundSex and Gender InformationValueDate RecordedSex Assigned at BirthNot on fileLegal LosTxxuap13/15/2023 8:06 PM EDTGender IdentityNot on fileSexual OrientationNot on filedocumented as of this encounter Plan of Treatment Not on file documented as of this encounter Procedures Procedure NamePriorityDate/TimeAssociated DiagnosisCommentsTBH URINE MICROSCOPIC MBAFRtfjrsv96/22/2025 9:50 PM EDT TBH UA (CLEAN/CATCH) NEEDLE PROCESS FELT GOODS SUPERVISOR/MICRO IF IND.Chocclr8007/08/2025 9:50 PM EDT CANNABINOID CONF, MS, URMoncrrv28/22/2025 9:50 PM EDT documented in this encounter Results * (ABNORMAL) CANNABINOID CONF, MS, UR (07/08/2025 9:50 PM EDT)ComponentValueRef RangeTest MethodAnalysis TimePerformed AtPathologist SignatureCANNABINOID Positive(A).TBHCARBOXY THC CONF, MS, QW098Fdrcjz=96 ng/mLTBHComment: Performed at: ??UI - [facility] [address] [place], [place] ??[id number] Budget Manager: Levi Pritchard PhD, Phone: ??[phone] Specimen (Source)Anatomical Location / LateralityCollection Method / [...] CLINISYNC TBH * (ABNORMAL) TBH UA (CLEAN/CATCH) NEEDLE PROCESS FELT GOODS SUPERVISOR/MICRO IF IND. (07/08/2025 9:50 PM EDT) ComponentValueRef [...] PM EDT Authorizing ProviderResult TypeResult StatusValedanyelle Rapp FORMERLY [facility] HOSPITALLINISYNCFinal ResultPerforming OrganizationAddressCity/State/ZIP CodePhone Number CLINISYNC TB documented in this encounter Visit Diagnoses Not on filedocumented in this encounter
--- OUTSIDE RECORDS SUMMARY | 2025-07-15 07:45 | XMS_ITS | Clinical Summary ---
Author Organization [facility] Address [address] [place] [address] Care Team Providers Care Complex Commercial Litigation Paralegal Name Role Phone Unavailable Primary Care Provider Unavailabl e Allergies Active AllergyReactionsCriticalityNoted CeaiEqtpgcjjRdgwqvrhd98/05/2025 Other Reaction(s): Seizure Medications MedicationSigDispense QuantityRefillsLast FilledStart [...] supervision of normal first in first trimester ([facility])Take 1 tablet by mouth Daily 30 tablet 11001/01/441109/ctive linaCLOtide (Linzess) 145 MCG capsule 1 (one) time each day at the same timeActive iron polysaccharides (ProFe) 391.3 (180 Fe) MG capsule Indications:Low iron,DizzinessTake 1 capsule (391.3 mg) by mouth Daily 30 capsule 6005/06/842464/ctive promethazine (Phenergan) 12.5 MG tablet Indications:NauseaTake 1 tablet (12.5 mg) by mouth every 6 (six) hours if needed for nausea or vomiting 180 tablet 108//683202/5Active metoclopramide (Reglan) 10 MG tablet Indications:Nausea and vomiting in ([facility])Take 1 tablet (10 mg) by mouth in the morning and 1 tablet (10 mg) at noon and 1 tablet (10 mg) in the evening. Take before meals. Take 1 tablet by mouth 30 minutes prior to meals 3 times daily as needed for nausea. 90 tablet tive Active Problems ProblemNoted DateDiagnosed DateHistory of gestational aaumfazx35/14/2025H/O pre- eclampsia in prior , currently ([facility])06/30/2025nemia 06/30/2025Estimated Date of NdigybgrCztsgbvoWdh32/05/2025ased on Ultrasound Encounters DateTypeDepartmentCare PaupHeyrojikgjt16/28/2025[place] [address] Yousif Aparicio DO 07/14/2025b[place] [address] Yousif Aparicio DO 07/10/2025Patient Outreach [facility] [address] [place] [phone] Jody Gentile LPN 07/08/2025linisync Result Encounter [facility] External Department Unsolicited Martha Rapp CNM 07/07/2025 2:20 PM EDTRoutine [facility] [address] [address] [place] [address] Yousif Aparicio DO Third trimester ([facility]); 37 weeks gestation of ([facility])07/07/2025amboo flowsheet [facility] [address] [place] [address] Yousif Aparicio DO 06/30/2025 1:50 PM EDTRoutine [facility] [address] [place] [address] Jody Kimble PA Third trimester ([facility]); 36 weeks gestation of ([facility]); H/O pre-eclampsia in prior , currently ([facility]); H/O miscarriage, currently ([facility]); History of gestational diabetes; Anemia, unspecified type06/30/2025 1:00 PM EDTAncillary Procedure [facility] [address] DANICA (amniotic fluid index) borderline low5Clinisync Result Encounter [facility] External Department Unsolicited Violet Woody NP 06/11/2025Patient Outreach [facility] [address] [place] [place] [address] Jody Gentile LPN 06/08/2025 11:10 AM EDTRoutine [facility] [place] [address] Yousif Aparicio DO Anemia, unspecified type (Primary Dx); Third trimester ([facility]); 33 weeks gestation of ([facility]); Gestational diabetes mellitus (GDM) in third trimester, gestational diabetes method of control unspecified ([facility]); H/O pre-eclampsia in prior , currently ([facility]); H/O miscarriage, currently ([facility]); DANICA (amniotic fluid index) borderline low06/08/2025amboo flowsheet [facility] [address] [place] [address] [place] [address] Yousif Aparicio DO 5Clinisync Result Encounter [facility] External Department Unsolicited Violet Woody, TELMA 05/20/2025 9:50 AM EDTRoutine [facility] [place] [address] Violet Woody NP Diarrhea, unspecified type (Primary Dx); Third trimester ([facility]); 31 weeks gestation of ([facility]); Nausea and vomiting in ([facility])05/20/2025 9:30 AM EDTAncillary Procedure [facility] [address] [facility] [address] size inconsistent with dates ([facility])05/19/2025bstract [facility] [address] [facility] [place] [address] Anne-Marie Mcleod MA 05/14/2025bstract [facility] [address] [facility] [place] [address] Yousif Aparicio, 05/14/2025bstract [facility] [address] [facility] [place] [address] Yousif Aparicio, 05/14/2025Patient Outreach [facility] [address] [place] [address] Jody Gentile LPN 05/12/2025bstract [facility] [address] [facility] [place] [address] Yousif Aparicio DO 05/08/2025linisync Result Encounter [facility] External Department Unsolicited Violet Woody NP 05/06/2025 11:30 AM EDTRoutine [facility] [address] [facility] [place] [address] Yousif Aparicio, Third trimester ([facility]); 29 weeks gestation of ([facility]); size inconsistent with dates ([facility]); Low iron; Dizziness; Kmfsqq8005/06/2025amboo flowsheet [facility] [address] [facility] [place] [address] Yousif Aparicio, 04/29/2025Refill [facility] [address] [facility] [place] [address] Marva Wagner LPN Nausea and vomiting, unspecified vomiting type04/17/2025Patient Outreach [facility] [address] [place] [address] Jody Gentile LPN from Last 3 Months Social History Tobacco UseTypesPacks/DayYears UsedDateSmoking Tobacco: NeverSmokeless Tobacco: Never Tobacco Cessation:Counseling Given: Not Answered Alcohol UseStandard Drinks/WeekCommentsNever0 (1 standard drink = 0.6 oz pure alcohol)PHQ-2AnswerDate RecordedPatient Health Questionnaire-2 Cchmx125 Estimated Date of QngqsxciSxbdhqadKxn33/05/2025ased on UltrasoundSex and Gender InformationValueDate RecordedSex Assigned at BirthNot on fileLegal HjwIpgpvz93/15/2023 8:06 PM EDTGender IdentityNot on fileSexual OrientationNot on file Last Filed Vital Signs Vital SignReadingTime TakenCommentsBlood Jpqodicn668/6807/07/2025 2:28 PM EDT Pulse--Temperature--Respiratory Rate--Oxygen Saturation--Inhaled Oxygen Concentration--Blagnj59.6 kg (199 lb 12.8 oz)07/07/2025 2:28 PM EDTHeight--Body Mass Index-- Plan of Treatment Health MaintenanceDue DateLast DoneCommentsMMR Vaccines (1 of 1 - Standard series)1995DTaP/Tdap/Td Vaccines (1 - Tdap)2001Varicella Vaccines (1 of 2 - 13+ 2-dose series)2007Hepatitis A Vaccines (1 of 2 - Risk 2-dose series)2013Hepatitis B Vaccines (1 of 3 - 19+ 3-dose series)2013HPV Vaccines (1 - 3-dose SCDM series)2021HPV/Pbsolp604COVID-19 Vaccine (1 - season)2025Influenza Vaccine (#1)2025ervical Cancer Wizqddgvr15/25/2028Pap Smear8003/11/2025, 06/20/2023HIB VaccinesAged Out No longer eligible [...] topic Procedures Procedure NamePriorityDate/TimeAssociated DiagnosisCommentsCANNABINOID CONF, MS, HNDmhrcrm12/22/2025 9:50 PM EDT TB URINE MICROSCOPIC PFLQRyefimf27/22/2025 9:50 PM EDT TBH UA (CLEAN/CATCH) MANAGER CLINIC/MICRO IF IND.Bzioscj6707/08/2025 9:50 PM EDT POCT URINALYSIS NPNFTYGKSejifmn79/21/2025 2:40 PM EDT 37 weeks gestation of ([facility]) POCT URINALYSIS PTGSSAXOZmnidnb83/14/2025 1:50 PM EDT Third trimester ([facility]) US OB LIMITED 1+ XVKRZVFNovakuy35/14/2025 1:18 PM EDT DANICA (amniotic fluid index) borderline low ALL CBC WITH AUTO ZMWIWtjykgr74/02/2025 2:11 PM EDT OVA AND PARASITE UJAPGSRksptac02/22/2025 1:44 PM EDT Diarrhea, unspecified type STOOL PWNUZELEhcssdx12/22/2025 1:44 PM EDT Diarrhea, unspecified type POCT URINALYSIS MHNJTJCMLxwghpc69/22/2025 11:32 AM EDT Third trimester ([facility]) OVA + PARASITE WNLWJskpyzk98/04/2025 8:55 AM EDT POCT URINALYSIS WHMXIWMGGpgeemt77/03/2025 10:19 AM EDT Third trimester ([facility] 31 weeks gestation of ([facility]) US OB FOLLOW UP TRANSABDOMINAL PVTKBXTDGeyscss97/03/2025 10:01 AM EDT size inconsistent with dates ([facility]) YDFSBYCZLCMSjudyjj39/22/2025 9:39 AM EDT CCF WKUQJLWOMkbzers21/22/2025 9:39 AM EDT ALL CBC WITH AUTO IVRUJygbgqc38/22/2025 9:39 AM EDT GLUCOSE 1 RUBBBykvxiy84/22/2025 9:39 AM EDT POCT URINALYSIS OYSETUAWIytejbb20/20/2025 11:51 AM EDT Third trimester ([facility]) PAP VLAXQPfgfjcg96/25/2025 12:00 AM EDTfrom Last 3 Months or [...] PM EDT Authorizing ProviderResult TypeResult StatusValeririckie Laura [facility] General HospitalLINISYNCFinal ResultPerforming OrganizationAddressCity/State/ZIP CodePhone Number [facility] * (ABNORMAL) TBH UA (CLEAN/CATCH) MANAGER CLINIC/MICRO IF IND. (07/08/2025 9:50 PM EDT) ComponentValueRef RangeTest MethodAnalysis TimePerformed AtPathologist SignatureCOLOR URINELT. YELLOWYELLOWTBHCLARITY URINECLEARCLEARTBHSPECIFIC GRAVITY URINE1.0151.005 - 1.025TBHPH URINE7.05.0 - 9.0TBHPROTEIN URINENEGATIVE NEG/TRACE mg/dLTBHGLUCOSE URINE UANEGATIVENEGATIVE mg/dLTBHBILIRUBIN URINE NEGATIVENEGATIVETBHKETONES URINENEGATIVENEGATIVE mg/dLTBHBLOOD URINESMALL(A) NEGATIVETBHNITRITE URINENEGATIVENEGATIVETBHUROBILINOGEN URINE1.00.2 - 1.0 EU/dLTBHLEUKOCYTE ESTERASE URINENEGATIVENEGATIVETBHURINE MICROSCOPIC INDICATED YESTBHSpecimen (Source)Anatomical Location / LateralityCollection Method / VolumeCollection TimeReceived Time07/08/2025 9:50 PM EDT1 10:02 PM EDT Narrative [facility] - 07/08/2025 10:17 PM EDT Authorizing ProviderResult TypeResult StatusValemdrickie Laura [facility] CenterISYNCPlainview Hospitalal ResultPerforming OrganizationAddressCity/State/ZIP CodePhone Number [facility] * (ABNORMAL) CANNABINOID CONF, MS, UR (07/08/2025 9:50 PM EDT)ComponentValueRef RangeTest MethodAnalysis TimePerformed AtPathologist SignatureCANNABINOID Positive(A).TBHCARBOXY THC CONF, MS, CK844Kygbry=92 ng/mLTBHComment: Performed at: ??UI - [facility] [address] [place], [place] ??[id number] Technical Service Engineer: Levi Pritchard PhD, Phone: ??[phone] Specimen (Source)Anatomical Location / LateralityCollection Method / [...] / Laterality Collection Method / VolumeCollection TimeReceived GtfiGfduv03/21/2025 2:40 PM EDT Narrative Authorizing ProviderResult TypeResult [...] Single viable intrauterine, cephalic presentation, normal andcardiac jnuhlh723 bpm. Normal normal amniotic fluid volume, 13.0 [...] 35.2 g/dLTBHTBH RDW24.9(H) 11.0 - 15.0 %TBHTBH CTD940435 - 450 10 3/uLTBHTBH MPV10.99.5 - 13.5 [...] Unknown Narrative Authorizing ProviderResult TypeResult StatusViolet Woody Balls.ie MICROBIOLOGY - GENERAL ORDERABLESFinal ResultPerforming OrganizationAddressCity/State/ZIP Code [...] a parasitic infection. Performed at: ?? - [facility] ??[id number] Technical Service Engineer: Justice Flor PhD, Phone: ??[phone] Specimen (Source)Anatomical Location / LateralityCollection Method / Volume Collection TimeReceived Time05/21/2025 8:55 AM EDT05/21/2025 1:53 PM EDT Narrative [facility] - 05/26/2025 5:08 PM EDT STOOL Authorizing ProviderResult TypeResult StatusViolet CorneliusZuffle BLOOD ORDERABLESFinal ResultPerforming OrganizationAddressty/State/[facility] CodePhone Number [facility]OSPITALISYNC [facility] * US OB follow up transabdominal [...] RangeTest Method Analysis TimePerformed AtPathologist SignatureGLUCOSE 1 FGGQ051<130 mg/dLTBH Specimen (Source)Anatomical Location / LateralityCollection Method / Volume Collection TimeReceived Time05/08/2025 9:39 AM EDT05/08/2025 9:41 AM EDT Narrative [facility] - 05/08/2025 10:01 AM EDT Authorizing ProviderResult TypeResult Glenys Woody NPLAB BLOOD ORDERABLESFinal ResultPerforming OrganizationAddressCity/State/ZIP CodePhone Number [facility] TB * (ABNORMAL) TRANSFERRIN (05/08/2025 9:39 AM EDT)ComponentValueRef RangeTest MethodAnalysis TimePerformed AtPathologist IcqdsniloSOHQRRSJPEU733(A)192 - 364 mg/dLTBHComment: Performed at: ??CB - [facility] [address] ??[id number] Technical Service Engineer: Justice Flor PhD, Phone: ??[phone] Specimen (Source)Anatomical Location / LateralityCollection Method / [...]
--- OUTSIDE RECORDS SUMMARY | 2025-07-15 07:45 | XMS_ITS | Encounter Summary ---
Author Organization [facility] Address [address] [place] [address] Care Team Providers Care Med Peds Name Role Phone Unavailable Primary Care Provider Unavailabl e Encounter Details DateTypeDepartmentCare Team (Latest Contact Info)Tzjndcoiwys88/28/2025bstract [facility] [address] [facility] [place] [address] Yousif Aparicio DO [address] [facility] [address] [place], [place] [address] Social History Tobacco UseTypesPacks/DayYears UsedDateSmoking Tobacco: NeverSmokeless Tobacco: NeverAlcohol UseStandard Drinks/WeekCommentsNever0 (1 standard drink = 0.6 oz pure alcohol)PHQ-2AnswerDate RecordedPatient Health Questionnaire-2 Score0 07/10/2025Estimated Date of RbhnjbqhRmlyoexhIla80/05/2025Based on UltrasoundSex and Gender InformationValueDate RecordedSex Assigned at BirthNot on fileLegal QuoDdloss64/15/2023 8:06 PM EDTGender IdentityNot on fileSexual OrientationNot on filedocumented as of this encounter Plan of Treatment Not on file documented as of this encounter Visit Diagnoses Not on filedocumented in this encounter
--- OUTSIDE RECORDS SUMMARY | 2025-07-15 07:45 | XMS_ITS | Clinical Summary ---
Author Organization [facility] Address [address] [place], [place] [address] Care Team Providers Care Bridge Contractor Name Role Phone Rodo Lincoln MD Primary Care Provider [phone] Allergies No known active allergies Medications MedicationSigDispense [...] InformationValueDate RecordedSex Assigned at BirthNot on fileLegal EeqNrvkaf83/08/2022 3:08 PM EST Gender IdentityNot on fileSexual OrientationNot on file Last Filed Vital Signs Vital SignReadingTime TakenCommentsBlood Snootroe414/70011/08/2021 11:34 AM EST Bcudc87397/22/2022 11:34 AM HCQFcrzqqvupzd91.5 ??C (97.7 ??F)11/08/2021 11:34 AM ESTRespiratory Omjg010511/08/2021 11:34 AM ESTOxygen Krcvzsndpz08%11/08/2021 11:34 AM ESTInhaled Oxygen Concentration--Jbgvdr96.4 kg (205 lb 12.8 oz)11/08/2021 11:34 AM ESTHeight--Body Mass Index-- Plan of Treatment Health MaintenanceDue DateLast DoneCommentsAnxiety Zmgkrencg53/27/2012Depression Pclbgruqj53/27/2012HIV Ejkephnjz80/27/2012DTaP,Tdap,Td Vaccine (1 - Tdap) 2013Hepatitis B Vaccine (1 of 3 - 19+ 3-dose series)2013Cervical Cancer Fkhoqvpph61/27/2015HPV Vaccine (1 - 3-dose SCDM series)1Covid-19 Vaccine (1 - 2024- season)2025Influenza Vaccine (#1)2025Hepatitis C JbukmnsntHduczlwob74/10/2020, 11/20/2019, 06/19/2019 Insurance Care Teams Team MemberRelationshipSpecialtyStart DateEnd Date Rodo Lincoln MD [address] [place] [address] PCP - GeneralFamily Medicine11/08/21
[2025-07-15] MEDS: 0.9 % SODIUM CHLORIDE 1,000 ML 125 ML IV ×2 (10:10→13:08)
[2025-07-15] MEDS: OXYTOCIN/0.9 % SODIUM CHLORIDE 10 UNITS/500 ML PLAST..BAG 6 UNIT IV (10:16)
[2025-07-15 10:18] LABS: Hematocrit 33.3 % (36.0-48.0); Hemoglobin 10.7 g/dL (12.0-16.0); Immature Granulocytes Abs Auto 0.06 10^3/uL (0.00-0.03); Immature Granulocytes Pct Auto 0.6 % (0.0-0.5); Lymphocytes Absolute Auto 1.5 10^3/uL (1.2-3.8); Mean Corpuscular HGB Conc 32.1 g/dL (29.9-35.2); Mean Corpuscular Hemoglobin 24.9 pg (26.7-34.0); Mean Corpuscular Volume 77.6 fL (81.0-99.0); Platelet Count 208 10^3/uL (150-450); Red Blood Count 4.29 10^6/uL (4.20-5.40); White Blood Count 9.7 10^3/uL (4.0-11.0)
[2025-07-15 10:24] LABS: Cannabinoid Screen Urine POSITIVE (NEGATIVE); Methamphetamines Screen Urine NEGATIVE (NEGATIVE); Tricyclic Antidepressant Urine NEGATIVE (NEGATIVE)
[2025-07-15] MEDS: ROPIVACAINE HCL/PF 400 MG/200 ML PREMIX 10 MG EPIDURAL (12:10)
--- NOTE | 2025-07-15 13:52 | P.OBHP_ITS ---
OB - H&P: HPI History of Present Illness Chief complaint: FBC INDUCTION : 6 Para: 4 Date of last menstrual period: 07/28/2024 Gestational age based on last menstrual period: 39 weeks by 11 week dating ultrasound Indications for induction: other (elective) Narrative: 30 year old SAB 1 at 39 weeks redated by 11 week U/S to ANGELA of 07/22/2025 presents for elective induction. care has been complicated by anemia - she received 6 iron infusions. She has not continued her iron pills and still comes in anemic today with a Hgb of 10.7, but Hgb is better than before when it was in the low 8 range. She has continued to use THC daily and vape tobacco some. She has a history of opioid use but none since 10/2023. She has good movement and few contractions. She denies vaginal bleeding or leaking fluid. History of Present Dating criteria: based on 1st trimester US only care: good care Ultrasounds: normal 1st trimester US and normal mid trimester US complications: other complications comment: anemia of - iron infusions x 6 Medical complications OB: none Labs Blood type: A (+) positive Rubella: immune RPR/VDLR: nonreactive GBS status: negative HBsAG: negative Narrative: Hep C REACTIVE 1 hour glucola = 121 Review of Systems ROS Status of ROS: 10 or more systems reviewed and unremarkable except as noted in history and below Gastrointestinal: Reports: [facility] Medical History (Updated 07/15/25 @ 13:44 by BELLA DOMINGUEZ MD) Current every day cannabis vapor product user ?F12.90 - Cannabis use, unspecified, uncomplicated (ICD-10) Hepatitis C test positive ?B19.20 - Unspecified viral hepatitis C without hepatic coma (ICD-10) Irritable bowel syndrome with constipation ?K58.1 - Irritable bowel syndrome with constipation (ICD-10) Insomnia ?G47.00 - Insomnia, unspecified (ICD-10) Fibromyalgia ?M79.7 - Fibromyalgia (ICD-10) Depression ?F32.A - Depression, unspecified (ICD-10) Anxiety ?F41.9 - Anxiety disorder, unspecified (ICD-10) Bipolar 1 disorder, manic, mild ?F31.11 - Bipolar disorder, current episode manic without psychotic features, mild (ICD-10) Spontaneous ?O03.9 - Complete or unspecified spontaneous without complication (ICD-10) Spontaneous vaginal delivery ?O80 - Encounter for full-term uncomplicated delivery (ICD-10) COVID-19 ?U07.1 - COVID-19 (ICD-10) Dog bite ?W54.0XXA - Bitten by dog, initial encounter (ICD-10) Surgical History (Updated 07/15/25 @ 11:51 by BELLA DOMINGUEZ MD) Hx of dilation and curettage ?Z98.890 - Other specified postprocedural states (ICD-10) Social History (Updated 07/15/25 @ 11:43 by BELLA DOMINGUEZ MD) Smoking status: Current some day smoker Do you use any of these nicotine containing products: vaping products Second hand tobacco smoke exposure: Yes Non-prescribed substance use: former substance user Non-prescribed substance use details: opiods - none since October 2023 ; cannabis use daily during in 2024 Meds Home Medications and Allergies Home Medications ?Medication ?Instructions ?Recorded ?Confirmed ?Type vitamins with calcium 1 tab PO Q24H 08/26/23 05/22/25 History no.72-iron 27 mg-folic acid 1 mg tablet ( Vitamins Plus Low Iron) Allergies Allergy/AdvReac Type Severity Reaction Status Date / Time bupropion Allergy Severe Seizure Verified 07/15/25 11:49 Exam Constitutional Vital Signs, click to edit/add: Last Vital Signs Temp 97.2 F L 07/15/25 11:35 Pulse 74 07/15/25 13:48 BP 127/70 07/15/25 13:48 Documenting provider has reviewed patient's vital signs: yes Common normals: no apparent distress and oriented x3 General appearance: cooperative, comfortable, well kempt and well developed HENMT Common normals: normocephalic Eye Common normals: EOMs intact bilaterally Respiratory Common normals: normal respiratory effort and no retractions Common normals: no CVA tenderness Uterus palpation: other (fundus gravid and non-tender) Extremity Common normals: no pedal edema Neuro Common normals: oriented x3 Sensorium/orientation: awake and alert Psych Common normals: mental status grossly normal, thought process normal, cooperative, affect normal and speech normal Appearance: grossly normal Results Labs Labs: Short CBC 07/15/25 Range/Units 10:12 WBC 9.7 (4.0-11.0) 10^3/uL Hgb 10.7 L (12.0-16.0) g/dL Hct 33.3 L (36.0-48.0) % Plt Count 208 (150-450) 10^3/uL OB - A/P Assessment and Plan (1) Term : Assessment and Plan: Elective induction at term pain medicines as needed Expect (2) History of pre-eclampsia in prior , currently in third trimester: Assessment and Plan: blood pressures are stable watch blood pressures in labor and also
[2025-07-15] MEDS: OXYTOCIN/0.9 % SODIUM CHLORIDE 20 UNITS/1,000 ML PLAST..BAG 999 UNIT IV (16:49)
--- NOTE | 2025-07-15 17:56 | PM.OBPRCVD ---
Procedure events: Labor Induction (elective at 39 weeks) Intrapartal events: None Induction method: per pitocin protocol Delivery augmentation: rupture of membranes Delivery monitor: external FHT and external uterine Route of delivery: Episiotomy Description: none L&D Laceration Description: perineal - 2nd degree (very small second degree laceration ) Delivery repair: Vicryl (3-0) Estimated blood loss (mL): 150 Anesthesia type: Epidural Disposition: floor Complications: none Delivery date: 07/15/25 Gender: male presentation: vertex (REY) Placental delivery description: Spontaneous cord description: 3 Vessels heart rate - 1 minute: 100 bpm or Greater respiratory effort - 1 minute: Spontaneous/Strong Cry muscle tone - 1 minute: Active Movement reflex response - 1 minute: Prompt Response color - 1 minute: Bluish Hands or Feet total score - 1 minute: 9 heart rate - 5 minute: 100 bpm or Greater respiratory effort - 5 minute: Spontaneous/Strong Cry muscle tone - 5 minute: Active Movement reflex response - 5 minute: Prompt Response color - 5 minute: Bluish Hands or Feet total score - 5 minute: 9
[2025-07-15] MEDS: IBUPROFEN 600 MG TABLET PO (18:25)
[2025-07-15] MEDS: FERROUS SULFATE 325 MG TABLET PO (20:47)
[2025-07-15] MEDS: GLYCERIN/WITCH HAZEL PADS 1 PAD TOPICAL (20:47)
[2025-07-15] MEDS: BENZOCAINE/MENTHOL 85 GRAM SPRAY BOTTLE 1 APPLIC TOPICAL (20:47)
[2025-07-15] MEDS: GABAPENTIN 300 MG CAPSULE PO (22:52)
[2025-07-16] MEDS: IBUPROFEN 600 MG TABLET PO ×3 (03:39→17:27)
[2025-07-16 05:30] LABS: Hematocrit 31.7 % (36.0-48.0); Hemoglobin 10.2 g/dL (12.0-16.0); Immature Granulocytes Abs Auto 0.06 10^3/uL (0.00-0.03); Immature Granulocytes Pct Auto 0.6 % (0.0-0.5); Lymphocytes Absolute Auto 1.9 10^3/uL (1.2-3.8); Mean Corpuscular HGB Conc 32.2 g/dL (29.9-35.2); Mean Corpuscular Hemoglobin 25.1 pg (26.7-34.0); Mean Corpuscular Volume 78.1 fL (81.0-99.0); Platelet Count 183 10^3/uL (150-450); Red Blood Count 4.06 10^6/uL (4.20-5.40); White Blood Count 10.1 10^3/uL (4.0-11.0)
[2025-07-16] MEDS: GABAPENTIN 300 MG CAPSULE PO ×2 (06:25→14:05)
[2025-07-16 08:05] VITALS: TEMP 36.8
[2025-07-16 08:07] VITALS: BP 139/93; PULSE 76
[2025-07-16] MEDS: FERROUS SULFATE 325 MG TABLET PO (08:12)
[2025-07-16] MEDS: DOCUSATE SODIUM 100 MG CAPSULE PO (08:13)
[2025-07-16] MEDS: LAMOTRIGINE 25 MG TABLET PO (08:14)
--- NOTE | 2025-07-16 09:33 | SWNOTE1 ---
SW consulted for positive Marijuana drug screen. Pt also has history of opioid abuse and suicide attempt in 2014. SW met with pt and father of baby in room. Mother holding baby and feeding him bottle. Pt was up front with SW and so was father of baby. They do have an open case with [facility] CPS. They voiced Jody is her manager of case management and Betty has been involved as well. They voiced they requested to keep the case open at this time as CPS has been a great resource for them. Pt voiced they have helped them with there license, housing, and several other things. She voiced they are doing really well since the last time SW saw them. Pt and father of baby (Jerrell) have 2 other children together, a 3 year old daughter and 18 month old son. Jerrell voiced they are coming up on there 1 year anniversary of being clean. Pt does have 2 other children, but has not contact with them, there father has them. They do have everything they need at home for baby. They do have good support and again voiced they appreciate CPS and the support CPS has given them. Pt does have WIC as well. Pt and Jerrell are going to counseling. Pt goes to [facility] in [place] and Jerrell goes to [facility] in [place]. Pt does admit to THC use. SW asked if CPS was aware of this? She stated yes. She did smoke it for help with appetite and eating. No plans of continuing once home. SW did advise that SW is mandated weather reporter and has to call in report to CPS. They did voice that the manager of case management is aware of baby being born already. At this time pt and Jerrell have no further questions. SW to follow as needed. GENESIS called and made report to [facility] CPS. HIPAA form filled out and sent to
[2025-07-16 11:13] VITALS: BP 132/77; PULSE 88
--- NOTE | 2025-07-16 13:09 | P.DS_ITS ---
DS: Providers Provider Date of admission: 07/15/25 07:41 Primary care physician: [facility] Admitting clinician: BELLA DOMINGUEZ Attending physician on admission: BELLA DOMINGUEZ Consults: 07/15/25 Consult to [employer] Routine Has provider been notified: Yes Reason for consult:: Mental Health Other reason:: +THC,h/o opiod abuse,suicide attempt 2013 Attending physician on discharge: BELLA DOMINGUEZ Discharging clinician: BELLA DOMINGUEZ Anticipated date of discharge: 07/16/25 DS: Diagnosis Discharge Diagnosis (1) Iron deficiency anemia of : Assessment and plan: ferrous sulfate bid (2) Normal vaginal delivery: Assessment and plan: home today OB - DS: Summary Hospital Course Hospital Course: Patient was 3 cm dilated on admission. She was started on pitocin. Membranes were ruptured and she was 4 cm dilated. She received an epidural. She progressed to completely dilated and delivered via over a small second degree laceration which was repaired. Time spent discussing smoking cessation with patient: 3 to 10 minutes Peripartum Data - Vaginal Delivery Laceration description: perineal - 2nd degree (small laceration repaired) Episiotomy Description: none Procedures: 30yo now 4 induced with pitocin and AROM at 39 weeks electively delivered via over a small second degree laceration which was repaired a 7lb 5oz male without difficulty. Complications complications: none Infant Delivery method: spontaneous vaginal delivery Gender: male Discharge plan: home Status at Discharge Cognitive/behavioral status at discharge: normal Functional status at discharge: independent ambulation Overall status at discharge: patient is progressing back to baseline Time Spent with Patient Time attestation: Total time spent providing and/or coordinating discharge services: Time spent: less than 30 minutes Exam Constitutional Vital Signs, click to edit/add: Last Vital Signs Temp 98.3 F 07/16/25 08:05 Pulse 88 07/16/25 11:13 Resp 18 07/16/25 08:05 BP 132/77 07/16/25 11:13 O2 Del Method Room Air 07/16/25 08:05 Documenting provider has reviewed patient's vital signs: yes Common normals: no apparent distress General appearance: cooperative, comfortable, well kempt and well developed Orientation/consciousness: Yes awake, Yes oriented to person, Yes oriented to place and Yes oriented to time HENMT Common normals: normocephalic Eye Common normals: EOMs intact bilaterally Respiratory Common normals: normal respiratory effort Cardio Common normals: regular rate GI Common normals: soft to palpation and non-tender Inspection: other (fundus firm and non-tender below umbilicus) Common normals: no CVA tenderness Extremity Common normals: normal to inspection, no calf tenderness and no pedal edema Neuro Common normals: oriented x3 Psych Appearance: grossly normal Attitude: calm and engaged Activity/motor behavior: appropriate eye contact Speech: normal speech Thought process: normal thought process Thought content: normal thought content Attention/concentration: attention grossly intact DS: Data Data Completed and Pending Labs on day of discharge: Labs from last 24 hours 07/16/25 05:23 WBC 10.1 RBC 4.06 L Hgb 10.2 L Hct 31.7 L MCV 78.1 L MCH 25.1 L MCHC 32.2 RDW 22.8 H Plt Count 183 MPV 11.2 Neut % (Auto) 70.8 Lymph % (Auto) 18.9 L Louisa % (Auto) 8.4 Eos % (Auto) 1.0 Baso % (Auto) 0.3 Neut # (Auto) 7.2 H Lymph # (Auto) 1.9 Louisa # (Auto) 0.9 H Eos # (Auto) 0.1 Baso # (Auto) 0.0 Abs Immat Gran (auto) 0.06 H Imm/Tot Granulo (auto) 0.6 H Discharge Plan Discharge Disposition: Home, Self-Care Discharge Medications: New ferrous sulfate 325 mg (65 mg iron) Tablet 325 mg PO BID Qty: 60 0RF ibuprofen 600 mg Tablet 600 mg PO Q6H PRN (Reason: Moderate Pain) Qty: 40 0RF Continued Vitamin Plus Low Iron 27 mg iron- 1 mg tablet 1 tab PO Q24H Activity: increase activity as tolerated Diet: regular diet Print Language: Honduran Forms: Portal Instructions Follow Up Appointments: [address] Aparicio Discharge location: to home
[2025-07-16 17:18] VITALS: BP 139/87; PULSE 66; PULSE 78; TEMP 36.8
--- NOTE | 2025-07-16 19:12 | PC.NURSE ---
This RN reviews and agrees with charting completed by Ada Roman LPN.
[2025-07-19 18:08] LABS: Carboxy THC Conf, MS, UR 95 ng/mL (Cutoff=10)
== END 2025-07-16 20:30 | disposition home or self-care (01) | DRG 560 ==
PROVIDERS: Admitting Provider Obstetrics & Gynecology; Visit Provider Obstetrics & Gynecology
DX: O99.324 Drug use complicating childbirth (principal); F12.90 Cannabis use, unspecified, uncomplicated; O99.344 Other mental disorders complicating childbirth; F31.9 Bipolar disorder, unspecified; O99.334 Smoking (tobacco) complicating childbirth; F17.290 Nicotine dependence, other tobacco product, uncomplicated; O70.1 Second degree perineal laceration during delivery; O99.02 Anemia complicating childbirth; Z3A.39 39 weeks gestation of pregnancy; F41.9 Anxiety disorder, unspecified; Z37.0 Single live birth; F11.11 Opioid abuse, in remission; Z91.51 Personal history of suicidal behavior; D50.9 Iron deficiency anemia, unspecified
CPT/HCPCS: 36415; 51702; 59050; 59410; 80307; 80349; 85025; 85027; 86850; 86900; 86901; J2795